=== PATIENT | male | born 1970 | race American Indian/Alaskan Native ===

== ENCOUNTER 2017-12-12 17:17 | Inpatient (IN) | payer OTHER ==
[2017-12-12] MEDS ORDERED: NACL 0.9% 1000 ML 1,000 ML IV ONE ×2 (19:13→21:20)
[2017-12-12] MEDS ORDERED: HumuLIN R IV ONE ×2 (19:15→21:19)
--- NOTE | 2017-12-12 19:16 | Emergency Department Report ---
ED Shortness of Breath HPI - General Chief Complaint: Dyspnea/Respdistress Stated Complaint: HYPERGLYCCEMIA/LIZZY Time Seen by Provider: 12/12/17 18:44 Source: EMS Mode of arrival: Stretcher Limitations: No Limitations - History of Present Illness Initial Comments: 47 yo male with a past medical history of tobacco use, asthma, and previous history of diabetes presents to the hospital with complaints of cough, intermittent fever, shortness of breath the last 3 days. Symptoms worsened today. He developed cough productive and sputum today but nonproductive prior to today. Patient denies wheezing episodes. Denies previous history of intubations. Patient states his primary care doctor discontinued his oral diabetes medication about 6 months ago because his hemoglobin A1c was normal. He is supposed to follow-up for repeat testing. No recent travel, sick contacts , history of PE/DVT, or calf or leg pain. Patient did not receive a flu shot this season. Patient has chest pain with coughing rated 8/10 in intensity. Patient received Solu-Medrol and magnesium in route and placed on nonrebreather with a sat of 92-93%. Patient admits to daily alcohol he drinks beer daily. Last drink 2-3 days ago. Patient denies a history of alcohol withdrawal tremors or seizures. - Related Data Allergies Allergy/AdvReac Type Severity Reaction Status Date / Time Zqzyntp-Tri-Ior Reductase Allergy Unknown Verified 12/12/17 20:09 Inhibitor ED Review of Systems ROS: Stated complaint: HYPERGLYCCEMIA/LIZZY Other details as noted in HPI Comment: All other systems reviewed and negative Other: Constitutional: As per HPI Eyes: No eye pain visual changes ENT: No ear pain or throat pain Neck: Denies pain Respiratory: Denies cough wheezing shortness of breath Cardiovascular: Denies chest pain, palpitations, syncope GI: Denies abdominal pain, nausea, vomiting, diarrhea, constipation, melena hematochezia : Denies dysuria, urinary frequency, or urgency Musculoskeletal: Denies back pain, joint swelling Skin: Denies rash, lesions, erythema Neurologic: Denies headache, numbness, weakness Psychiatric: Denies suicidal ideation, hallucinations Hematological/lymphatic: Denies easy bruising, lymphadenopathy ED Past Medical Hx - Past Medical History Previous Medical History?: Yes Hx Diabetes: Yes Additional medical history: asthma - Social History Smoking Status: Current Every Day Smoker Substance Use Type: Alcohol (daily) ED Physical Exam - General Limitations: No Limitations - Other Other exam information: General: No limitations Head exam: Atraumatic, normocephalic Eyes exam: Normal appearance ENT: Moist mucous membrane Neck exam: Normal inspection, full range of motion Respiratory exam: Diminished breath sounds left lung field, with mild crackles at bilateral bases. Tachypnea, mild accessory muscle use Cardiovascular: Tachycardic regular rhythm Abdomen: Soft, nondistended, and nontender, with normal bowel sounds, no rebound, or guarding Extremity: Full range of motion normal inspection no deformity, no calf tenderness or edema Back: Normal Inspection, full range of motion, no tenderness Neurologic: Alert, oriented x3, cranial nerves intact, no motor or sensory deficit Psychiatric: normal affect, normal mood Skin: Warm, dry, intact ED Course Vital Signs 12/12/17 12/12/17 12/12/17 17:35 18:00 18:14 Temperature 103 F H Pulse Rate 130 H Respiratory 30 H 33 H Rate Blood Pressure 119/75 126/74 O2 Sat by Pulse 92 92 Oximetry 12/12/17 12/12/17 12/12/17 18:15 18:30 18:45 Temperature Pulse Rate 129 H 127 H Respiratory 35 H 42 H Rate Blood Pressure 119/75 119/75 O2 Sat by Pulse 88 91 95 Oximetry 12/12/17 19:00 Temperature Pulse Rate 129 H Respiratory 55 H Rate Blood Pressure 122/70 O2 Sat by Pulse 90 Oximetry - Consultations Consultation #1: 12/12/17 21:[address] 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 Willileana consult ED Medical Decision Making - Lab Data Result diagrams: 12/12/17 19:02 12/12/17 19:02 Lab Results 12/12/17 12/12/17 12/12/17 Range/Units 19:02 19:02 19:02 WBC 6.9 (4.5-11.0) K/mm3 RBC 4.23 (3.65-5.03) M/mm3 Hgb 14.2 (11.8-15.2) gm/dl Hct 40.5 (35.5-45.6) % MCV 96 H (84-94) fl MCH 34 H (28-32) pg MCHC 35 H (32-34) % RDW 13.3 (13.2-15.2) % Plt Count 46 L (140-440) K/mm3 Crisp % (Auto) Dyer [place] Washer Add Manual Diff Complete Total Counted 100 Seg Neutrophils % Dyer [place] Washer Seg Neuts % (Manual) 77.0 H (40.0-70.0) % Band Neutrophils % 6.0 % Lymphocytes % (Manual) 13.0 L (13.4-35.0) % Reactive Lymphs % (Man) 0 % Monocytes % (Manual) 4.0 (0.0-7.3) % Eosinophils % (Manual) 0 (0.0-4.3) % Basophils % (Manual) 0 (0.0-1.8) % Metamyelocytes % 0 % Myelocytes % 0 % Promyelocytes % 0 % Blast Cells % 0 % Nucleated RBC % Not Reportable Seg Neutrophils # Man 5.3 (1.8-7.7) K/mm3 Band Neutrophils # 0.4 K/mm3 Lymphocytes # (Manual) 0.9 L (1.2-5.4) K/mm3 Abs React Lymphs (Man) 0.0 K/mm3 Monocytes # (Manual) 0.3 (0.0-0.8) K/mm3 Eosinophils # (Manual) 0.0 (0.0-0.4) K/mm3 Basophils # (Manual) 0.0 (0.0-0.1) K/mm3 Metamyelocytes # 0.0 K/mm3 Myelocytes # 0.0 K/mm3 Promyelocytes # 0.0 K/mm3 Blast Cells # 0.0 K/mm3 WBC Morphology Not Reportable Hypersegmented Neuts Not Reportable Hyposegmented Neuts Not Reportable Hypogranular Neuts Not Reportable Smudge Cells Not Reportable Toxic Granulation Not Reportable Toxic Vacuolation 2+ Dohle Bodies Not Reportable Pelger-Huet Anomaly Not Reportable Mary Rods Not Reportable Platelet Estimate Appears decreased Clumped Platelets Not Reportable Plt Clumps, EDTA Not Reportable Large Platelets Not Reportable Giant Platelets Not Reportable Platelet Satelliting Not Reportable Plt Morphology Comment Not Reportable RBC Morphology Not Reportable Dimorphic RBCs Not Reportable Polychromasia Not Reportable Hypochromasia Not Reportable Poikilocytosis 2+ Anisocytosis 1+ Microcytosis Not Reportable Macrocytosis Not Reportable Spherocytes Not Reportable Pappenheimer Bodies Not Reportable Sickle Cells Not Reportable Target Cells Not Reportable Tear Drop Cells Not Reportable Ovalocytes Not Reportable Helmet Cells Not Reportable Arceo-Ramos Bodies Not Reportable [place] Rings Not Reportable Chidi Cells Not Reportable Bite Cells Not Reportable Crenated Cell Not Reportable Elliptocytes Not Reportable Acanthocytes (Spur) Not Reportable Rouleaux Not Reportable Hemoglobin C Crystals Not Reportable Schistocytes Not Reportable Malaria parasites Not Reportable Vipul Bodies Not Reportable Hem Pathologist Commnt No PT 14.7 (12.2-14.9) Sec. INR 1.09 (0.87-1.13) VBG pH (7.320-7.420) Sodium (137-145) mmol/L Potassium (3.6-5.0) mmol/L Chloride (98-107) mmol/L Carbon Dioxide (22-30) mmol/L Anion Gap mmol/L BUN (9-20) mg/dL Creatinine (0.8-1.5) mg/dL Estimated GFR ml/min BUN/Creatinine Ratio % Glucose (75-100) mg/dL Lactic Acid 4.00 H* (0.7-2.0) mmol/L Calcium (8.4-10.2) mg/dL Total Bilirubin (0.1-1.2) mg/dL AST (5-40) units/L ALT (7-56) units/L Alkaline Phosphatase (35-129) units/L NT-Pro-B Natriuret Pep (0-450) pg/mL Total Protein (6.3-8.2) g/dL Albumin (3.9-5) g/dL Albumin/Globulin Ratio % Urine Color (Yellow) Urine Turbidity (Clear) Urine pH (5.0-7.0) Ur Specific [place] (1.003-1.030) Urine Protein (Negative) mg/dL Urine Glucose (UA) (Negative) mg/dL Urine Ketones (Negative) mg/dL Urine Blood (Negative) Urine Nitrite (Negative) Urine Bilirubin (Negative) Urine Ictotest (Negative) Urine Urobilinogen (<2.0) mg/dL Ur Leukocyte Esterase (Negative) Urine WBC (Auto) (0.0-6.0) /HPF Urine RBC (Auto) (0.0-6.0) /HPF U Epithel Cells (Auto) (0-13.0) /HPF Urine Bacteria (Auto) (Negative) /HPF Urine Mucus /HPF 12/12/17 12/12/17 12/12/17 Range/Units 19:02 19:02 19:18 WBC (4.5-11.0) K/mm3 RBC (3.65-5.03) M/mm3 Hgb (11.8-15.2) gm/dl Hct (35.5-45.6) % MCV (84-94) fl MCH (28-32) pg MCHC (32-34) % RDW (13.2-15.2) % Plt Count (140-440) K/mm3 Crisp % (Auto) Add Manual Diff Total Counted Seg Neutrophils % Seg Neuts % (Manual) (40.0-70.0) % Band Neutrophils % % Lymphocytes % (Manual) (13.4-35.0) % Reactive Lymphs % (Man) % Monocytes % (Manual) (0.0-7.3) % Eosinophils % (Manual) (0.0-4.3) % Basophils % (Manual) (0.0-1.8) % Metamyelocytes % % Myelocytes % % Promyelocytes % % Blast Cells % % Nucleated RBC % Seg Neutrophils # Man (1.8-7.7) K/mm3 Band Neutrophils # K/mm3 Lymphocytes # (Manual) (1.2-5.4) K/mm3 Abs React Lymphs (Man) K/mm3 Monocytes # (Manual) (0.0-0.8) K/mm3 Eosinophils # (Manual) (0.0-0.4) K/mm3 Basophils # (Manual) (0.0-0.1) K/mm3 Metamyelocytes # K/mm3 Myelocytes # K/mm3 Promyelocytes # K/mm3 Blast Cells # K/mm3 WBC Morphology Hypersegmented Neuts Hyposegmented Neuts Hypogranular Neuts Smudge Cells Toxic Granulation Toxic Vacuolation Dohle Bodies Pelger-Huet Anomaly Mary Rods Platelet Estimate Clumped Platelets Plt Clumps, EDTA Large Platelets Giant Platelets Platelet Satelliting Plt Morphology Comment RBC Morphology Dimorphic RBCs Polychromasia Hypochromasia Poikilocytosis Anisocytosis Microcytosis Macrocytosis Spherocytes Pappenheimer Bodies Sickle Cells Target Cells Tear Drop Cells Ovalocytes Helmet Cells Arceo-Ramos Bodies [place] Rings Chidi Cells Bite Cells Crenated Cell Elliptocytes Acanthocytes (Spur) Rouleaux Hemoglobin C Crystals Schistocytes Malaria parasites Vipul Bodies Hem Pathologist Commnt PT (12.2-14.9) Sec. INR (0.87-1.13) VBG pH 7.472 H (7.320-7.420) Sodium 124 L (137-145) mmol/L Potassium 3.8 (3.6-5.0) mmol/L Chloride 80.0 L (98-107) mmol/L Carbon Dioxide 20 L (22-30) mmol/L Anion Gap 28 mmol/L BUN 16 (9-20) mg/dL Creatinine 1.0 (0.8-1.5) mg/dL Estimated GFR > 60 ml/min BUN/Creatinine Ratio 16 % Glucose 382 H (75-100) mg/dL Lactic Acid (0.7-2.0) mmol/L Calcium 8.1 L (8.4-10.2) mg/dL Total Bilirubin 4.60 H (0.1-1.2) mg/dL AST 93 H (5-40) units/L ALT 112 H (7-56) units/L Alkaline Phosphatase 80 (35-129) units/L NT-Pro-B Natriuret Pep 409.9 (0-450) pg/mL Total Protein 6.5 (6.3-8.2) g/dL Albumin 2.5 L (3.9-5) g/dL Albumin/Globulin Ratio 0.6 % Urine Color (Yellow) Urine Turbidity (Clear) Urine pH (5.0-7.0) Ur Specific [place] (1.003-1.030) Urine Protein (Negative) mg/dL Urine Glucose (UA) (Negative) mg/dL Urine Ketones (Negative) mg/dL Urine Blood (Negative) Urine Nitrite (Negative) Urine Bilirubin (Negative) Urine Ictotest (Negative) Urine Urobilinogen (<2.0) mg/dL Ur Leukocyte Esterase (Negative) Urine WBC (Auto) (0.0-6.0) /HPF Urine RBC (Auto) (0.0-6.0) /HPF U Epithel Cells (Auto) (0-13.0) /HPF Urine Bacteria (Auto) (Negative) /HPF Urine Mucus /HPF 12/12/17 Range/Units 20:42 WBC (4.5-11.0) K/mm3 RBC (3.65-5.03) M/mm3 Hgb (11.8-15.2) gm/dl Hct (35.5-45.6) % MCV (84-94) fl MCH (28-32) pg MCHC (32-34) % RDW (13.2-15.2) % Plt Count (140-440) K/mm3 Crisp % (Auto) Add Manual Diff Total Counted Seg Neutrophils % Seg Neuts % (Manual) (40.0-70.0) % Band Neutrophils % % Lymphocytes % (Manual) (13.4-35.0) % Reactive Lymphs % (Man) % Monocytes % (Manual) (0.0-7.3) % Eosinophils % (Manual) (0.0-4.3) % Basophils % (Manual) (0.0-1.8) % Metamyelocytes % % Myelocytes % % Promyelocytes % % Blast Cells % % Nucleated RBC % Seg Neutrophils # Man (1.8-7.7) K/mm3 Band Neutrophils # K/mm3 Lymphocytes # (Manual) (1.2-5.4) K/mm3 Abs React Lymphs (Man) K/mm3 Monocytes # (Manual) (0.0-0.8) K/mm3 Eosinophils # (Manual) (0.0-0.4) K/mm3 Basophils # (Manual) (0.0-0.1) K/mm3 Metamyelocytes # K/mm3 Myelocytes # K/mm3 Promyelocytes # K/mm3 Blast Cells # K/mm3 WBC Morphology Hypersegmented Neuts Hyposegmented Neuts Hypogranular Neuts Smudge Cells Toxic Granulation Toxic Vacuolation Dohle Bodies Pelger-Huet Anomaly Mary Rods Platelet Estimate Clumped Platelets Plt Clumps, EDTA Large Platelets Giant Platelets Platelet Satelliting Plt Morphology Comment RBC Morphology Dimorphic RBCs Polychromasia Hypochromasia Poikilocytosis Anisocytosis Microcytosis Macrocytosis Spherocytes Pappenheimer Bodies Sickle Cells Target Cells Tear Drop Cells Ovalocytes Helmet Cells Arceo-Ramos Bodies [place] Rings Chidi Cells Bite Cells Crenated Cell Elliptocytes Acanthocytes (Spur) Rouleaux Hemoglobin C Crystals Schistocytes Malaria parasites Vipul Bodies Hem Pathologist Commnt PT (12.2-14.9) Sec. INR (0.87-1.13) VBG pH (7.320-7.420) Sodium (137-145) mmol/L Potassium (3.6-5.0) mmol/L Chloride (98-107) mmol/L Carbon Dioxide (22-30) mmol/L Anion Gap mmol/L BUN (9-20) mg/dL Creatinine (0.8-1.5) mg/dL Estimated GFR ml/min BUN/Creatinine Ratio % Glucose (75-100) mg/dL Lactic Acid (0.7-2.0) mmol/L Calcium (8.4-10.2) mg/dL Total Bilirubin (0.1-1.2) mg/dL AST (5-40) units/L ALT (7-56) units/L Alkaline Phosphatase (35-129) units/L NT-Pro-B Natriuret Pep (0-450) pg/mL Total Protein (6.3-8.2) g/dL Albumin (3.9-5) g/dL Albumin/Globulin Ratio % Urine Color Neeta (Yellow) Urine Turbidity Clear (Clear) Urine pH 5.0 (5.0-7.0) Ur Specific [place] 1.021 (1.003-1.030) Urine Protein 100 mg/dl (Negative) mg/dL Urine Glucose (UA) >=500 (Negative) mg/dL Urine Ketones Tr (Negative) mg/dL Urine Blood Lg (Negative) Urine Nitrite Neg (Negative) Urine Bilirubin Sm (Negative) Urine Ictotest Positive (Negative) Urine Urobilinogen 4.0 (<2.0) mg/dL Ur Leukocyte Esterase Neg (Negative) Urine WBC (Auto) 2.0 (0.0-6.0) /HPF Urine RBC (Auto) 1.0 (0.0-6.0) /HPF U Epithel Cells (Auto) < 1.0 (0-13.0) /HPF Urine Bacteria (Auto) 1+ (Negative) /HPF Urine Mucus 1+ /HPF - EKG Data -: EKG Interpreted by [facility] EKG shows normal: sinus rhythm, axis (1), QRS complexes Rate: tachycardia (127) - Radiology Data Radiology results: report reviewed Chest x-ray read by radiologist Fairly dense diffuse right-sided infiltrate and left lower lobe infiltrate remaining left lung is clear. Right hilum cannot be assessed - Medical Decision Making Pneumonia Bilateral and likely causes shortness of breath, hypoxia, and tachypnea Tylenol for fever Normal saline Levaquin and Zosyn initiated Patient requiring supplemental oxygen via nonrebreather Positive elevated lactic acid Tachycardia Likely secondary to cause above Must also consider alcohol withdrawal No signs of tremors at this time. Hyponatremia sodium correction for glucose: 131 Normal saline initiated Hyperglycemia received insulin boluses and normal saline Trace ketones in urine Venous pH without acidosis +AG which could be due to sepsis as well. - Differential Diagnosis pneumonia, bronchitis, CHF, effusion, hyperglycemia, DKA Critical Care Time: No Critical care attestation.: If time is entered above; I have spent that time in minutes in the direct care of this critically ill patient, excluding procedure time. ED Disposition Clinical Impression: Hyperglycemia, Thrombocytopenia, Hyponatremia, LFT elevation, Daily consumption of alcohol, Elevated lactic acid level Pneumonia Qualifiers: Laterality: bilateral Disposition: OP ADMIT IP TO THIS HOSP Is pt being admited?: Yes Condition: Stable Time of Disposition: 21:25 (Dr Howell/hosp)
[2017-12-12] MEDS ORDERED: LEVAQUIN 750MG/150ML 750 MG/150 ML BAG IV ONE (19:19)
[2017-12-12] MEDS ORDERED: NACL 0.9% 500 ML 500 ML IV ONE (19:20)
[2017-12-12 19:29] LABS: Hematocrit 40.5 % (35.5-45.6); Hemoglobin 14.2 gm/dl (11.8-15.2); Mean Corpuscular HGB Conc 35 % (32-34); Mean Corpuscular Hemoglobin 34 pg (28-32); Mean Corpuscular Volume 96 fl (84-94); Red Blood Count 4.23 M/mm3 (3.65-5.03); Red Cell Distribution Width 13.3 % (13.2-15.2)
[2017-12-12 19:43] LABS: INR 1.09 (0.87-1.13)
[2017-12-12 20:26] LABS: Alanine Aminotransferase 112 units/L (7-56); Albumin 2.5 g/dL (3.9-5); BUN/Creatinine Ratio 16; Blood Urea Nitrogen 16 mg/dL (9-20); Calcium 8.1 mg/dL (8.4-10.2); Hemolysis Index 50
[2017-12-12 20:56] LABS: Band Neutrophils # (Manual) 0.4 K/mm3; Basophils % (Manual) 0 % (0.0-1.8); Eosinophils % (Manual) 0 % (0.0-4.3); Total Cells Counted 100
[2017-12-12 20:58] LABS: Bacteria,Urine 1+ /HPF (Negative); Bilirubin,Urine SM (Negative); Blood,Urine LG (Negative); Color,Urine Amber (Yellow); Mucus,Urine 1+ /HPF
[2017-12-12 20:59] LABS: Platelet Estimate Appears Decreased
[2017-12-12 21:00] LABS: Anisocytosis 1+; Poikilocytosis 2+; Toxic Vacuolation 2+
[2017-12-12] MEDS ORDERED: ZOSYN/NS 4.5GM/100ML 4.5 GM/100 ML VIAL IV SCH (21:00)
[2017-12-12 21:01] LABS: Platelet Count 46 K/mm3 (140-440)
--- NOTE | 2017-12-12 21:07 | XRay Report ---
FINAL REPORT EXAM: XR CHEST 1V AP HISTORY: Fever/Sepsis TECHNIQUE: Frontal chest x-ray performed AP was performed Comparison: None FINDINGS: Heart size is normal. There is a dense fairly diffuse right-sided infiltrate without significant volume loss. There is a patchy left lower lobe infiltrate. The remaining left lung is clear. There are no definite pleural effusions. IMPRESSION: Fairly dense diffuse right-sided infiltrate and left lower lobe infiltrate. Remaining left lung is clear. Heart size is grossly within normal limits. Right hilum cannot be assessed.
[2017-12-12] MEDS ORDERED: TYLENOL PO ONE (21:12)
[2017-12-12 21:18] LABS: Ictotest,Urine Positive (Negative)
[2017-12-12] MEDS ORDERED: TYLENOL PO PRN (22:16)
[2017-12-12] MEDS ORDERED: D50W (25GM) Syringe IV PRN (22:16)
--- NOTE | 2017-12-12 22:21 | History and Physical Report ---
History of Present Illness Date of examination: 12/12/17 History of present illness: 47-year-old man with history of diabetes, asthma, emergency room with complaints of shortness of breath 3 days. He complains of cough productive of yellow phlegm, fever and chills. He has been using his cousins nebulizer treatments without any improvement in his symptoms. He's been hypoxic in the emergency room and a nonrebreather,saturation is in the 80s with movement, he will be placed on a BiPAP Review Of Systems: Constitutional: no weight loss Ears, eyes, nose, mouth and throat: no nasal congestion, no nasal discharge, no sinus pressure, blurry vision, diplopia Neck: No neck pain or rigidity. Cardiovascular: no chest pain, orthopnea, palpitations Respiratory: + shortness of breath, cough Gastrointestinal: abdominal pain, hematochezia Genitourinary : no dysuria, frequency , hematuria Musculoskeletal: no muscle ache Integumentary: no rash, no pruritis Neurological: no parathesias, focal weakness Endocrine: no cold or heat intolerance, no polyuria or polydipsia Hematologic/Lymphatic: no easy bruising, no easy bleeding, no gland swelling Allergic/Immunologic: no urticaria, no angioedema. PAST MEDICAL HISTORY: Diabetes, asthma PAST SURGICAL HISTORY: None SOCIAL HISTORY: Smoke a pack a day, drinks 6 beers a day, no drugs FAMILY HISTORY: Hypertension Medications and Allergies Allergies Allergy/AdvReac Type Severity Reaction Status Date / Time Wlnheuo-Jov-Kqm Reductase Allergy Unknown Verified 12/12/17 20:09 Inhibitor Home Medications Medication Instructions Recorded Confirmed Last Taken Type No Known Home Medications [No 12/13/17 12/13/17 Unknown History Reported Home Medications] Active Meds: Active Medications Acetaminophen (Tylenol) 650 mg PO Q4H PRN PRN Reason: Pain MILD(1-3)/Fever >100.5/HERNANDEZ Albuterol/Ipratropium (Duoneb *Not For Prn Use*) 1 ampul IH Q6HRT LEIF Dextrose (D50w (25gm) Syringe) 50 ml IV PRN PRN PRN Reason: Hypoglycemia Piperacillin Sod/Tazobactam Sod (Zosyn/Ns 4.5gm/100ml) 4.5 gm in 100 mls @ 200 mls/hr IV ONCE LEIF Last Admin: 12/12/17 21:35 Dose: 200 mls/hr Insulin Human Regular (Humulin R) 0 units SUB-Q AC LEIF; Protocol Methylprednisolone Sodium Succinate (Solu-Medrol) 60 mg IV Q6H LEIF Ondansetron HCl (Zofran) 4 mg IV Q8H PRN PRN Reason: Nausea And Vomiting Sodium Chloride (Sodium Chloride Flush Syringe 10 Ml) 10 ml IV BID LEIF Sodium Chloride (Sodium Chloride Flush Syringe 10 Ml) 10 ml IV PRN PRN PRN Reason: LINE FLUSH Exam - Physical Exam Narrative exam: Gen. appearance: Patient lying in bed, no apparent distress HEENT: Normocephalic, atraumatic, pupils equally round and reactive to light, extraocular movement intact, and no sclericterus,. No JVD or thyromegaly or nodule,neck supple, no carotid bruit ,mucous membranes moist, no exudate or erythema Heart: S1, S2, regular rate and rhythm Lungs: Wheezing, crackles , breathing comfortable Abdomen: Positive bowel sounds, nontender, nondistended, no organomegaly Extremity: No edema, cyanosis, clubbing Skin: No rash, nodules, warm, dry Neuro: Oriented 3, cranial nerves II-12 intact, speech is fluent, motor and sensory intact - Constitutional Vitals: Temp Pulse Resp BP Pulse Ox 103 F H 122 H 12 107/50 93 12/12/17 17:35 12/12/17 21:45 12/12/17 21:45 12/12/17 21:45 12/12/17 21:45 Results - Labs CBC & Chem 7: 01/04/18 06:12 01/04/18 06:12 Labs: Abnormal lab results 12/12/17 12/12/17 12/12/17 Range/Units 19:02 19:02 19:02 MCV 96 H (84-94) fl MCH 34 H (28-32) pg MCHC 35 H (32-34) % Plt Count 46 L (140-440) K/mm3 Seg Neuts % (Manual) 77.0 H (40.0-70.0) % Lymphocytes % (Manual) 13.0 L (13.4-35.0) % Lymphocytes # (Manual) 0.9 L (1.2-5.4) K/mm3 VBG pH (7.320-7.420) Sodium 124 L (137-145) mmol/L Chloride 80.0 L (98-107) mmol/L Carbon Dioxide 20 L (22-30) mmol/L Glucose 382 H (75-100) mg/dL Lactic Acid 4.00 H* (0.7-2.0) mmol/L Calcium 8.1 L (8.4-10.2) mg/dL Total Bilirubin 4.60 H (0.1-1.2) mg/dL AST 93 H (5-40) units/L ALT 112 H (7-56) units/L Albumin 2.5 L (3.9-5) g/dL 12/12/17 Range/Units 19:18 MCV (84-94) fl MCH (28-32) pg MCHC (32-34) % Plt Count (140-440) K/mm3 Seg Neuts % (Manual) (40.0-70.0) % Lymphocytes % (Manual) (13.4-35.0) % Lymphocytes # (Manual) (1.2-5.4) K/mm3 VBG pH 7.472 H (7.320-7.420) Sodium (137-145) mmol/L Chloride (98-107) mmol/L Carbon Dioxide (22-30) mmol/L Glucose (75-100) mg/dL Lactic Acid (0.7-2.0) mmol/L Calcium (8.4-10.2) mg/dL Total Bilirubin (0.1-1.2) mg/dL AST (5-40) units/L ALT (7-56) units/L Albumin (3.9-5) g/dL - Imaging and Cardiology EKG: image reviewed Chest x-ray: image reviewed Assessment and Plan Assessment Acute respiratory failure Sepsis Bilateral community-acquired pneumonia Asthma exacerbation Diabetes type 2 Thrombocytopenia Alcoholic hepatitis plan Start BiPAP,nebulizer treatments Start high-dose steroids, IV Levaquin, follow cultures Consult pulmonary Check fingersticks and initiate insulin sliding scale Start Lantus now, DVT prophylaxis Addendum patient in respiratory distress nubilizer treatment given, abg obtained intubate and tranfer to unit Vomited during and after intubation antiemetics, add zosyn, give a dose of vanco The high probability of a clinically significant sudden or life-threatening deterioration of the [cardiac, respiratory, renal] system(s) required my full and direct attention, intervention and personal management. The aggregate critical care time was [45 ] minutes. This time is in addition to the time spent performing reported procedures but including [ X] Data review and interpretation [ X] Patient assessment and monitoring of vital signs [ X ] Documentation [X] Medication orders and management
[2017-12-12] MEDS ORDERED: NORCO 5/325 ONE (22:58)
[2017-12-12] MEDS ORDERED: NORCO 5/325 PO ONE (23:01)
[2017-12-12] MEDS ORDERED: TESSALON PERLES PO ONE (23:01)
[2017-12-13] MEDS: DUONEB *Not for PRN Use IH SCH ×4 (01:11→20:30)
[2017-12-13] MEDS ORDERED: PROVENTIL IH PRN (02:47)
[2017-12-13] MEDS ORDERED: REGLAN ONE (04:15)
[2017-12-13] MEDS ORDERED: XOPENEX IH ONE (04:27)
[2017-12-13] MEDS ORDERED: ATROVENT IH ONE (04:27)
--- NOTE | 2017-12-13 04:34 | Emergency Department Report ---
HPI - General Chief Complaint: Dyspnea/Respdistress Time Seen by Provider: 12/12/17 18:44 - HPI HPI: I was asked by the hospitalist colleague Dr. Howell to intubate patient. I found patient to be in severe respiratory distress on BiPAP breathing 30 breaths per minute. I discussed the procedure with his and the patient. Both agreed to the procedure. Patient was provided oxygen with nonrebreather. [place] oxygen saturation achieved 77%. RSI performed with etomidate and succinylcholine. I used a Flavio 4-0 curved blade and 7.5 ETT, passed tube under direct visualization of vocal cords. I required 2 attempts. With ventilation bag valve mask in between the first and second attempt. Color change with CO2 detector. Chest x- ray was immediately ordered. ED Past Medical Hx - Past Medical History Previous Medical History?: Yes Hx Diabetes: Yes Additional medical history: asthma - Social History Smoking Status: Current Some Day Smoker ED Review of Systems ROS: Stated complaint: HYPERGLYCCEMIA/LIZZY Other details as noted in HPI Physical Exam - Physical Exam Vital Signs: Vital Signs 12/12/17 12/12/17 12/12/17 17:35 18:00 18:14 Temperature 103 F H Pulse Rate 130 H Respiratory 30 H 33 H Rate Blood Pressure 119/75 126/74 Blood Pressure [Left] O2 Sat by Pulse 92 92 Oximetry 12/12/17 12/12/17 12/12/17 18:15 18:30 18:45 Temperature Pulse Rate 129 H 127 H Respiratory 35 H 42 H Rate Blood Pressure 119/75 119/75 Blood Pressure [Left] O2 Sat by Pulse 88 91 95 Oximetry 12/12/17 12/12/17 12/12/17 19:00 19:15 19:30 Temperature Pulse Rate 129 H 127 H 128 H Respiratory 55 H 60 H 34 H Rate Blood Pressure 122/70 111/59 108/52 Blood Pressure [Left] O2 Sat by Pulse 90 95 85 Oximetry 12/12/17 12/12/17 12/12/17 19:45 20:01 20:15 Temperature Pulse Rate 125 H 127 H 128 H Respiratory 48 H 16 35 H Rate Blood Pressure 116/61 119/56 119/56 Blood Pressure [Left] O2 Sat by Pulse 87 91 91 Oximetry 12/12/17 12/12/17 12/12/17 20:31 20:45 21:00 Temperature Pulse Rate 126 H 124 H 122 H Respiratory 26 H 14 61 H Rate Blood Pressure 131/66 128/67 132/68 Blood Pressure [Left] O2 Sat by Pulse 89 89 95 Oximetry 12/12/17 12/12/17 12/12/17 21:15 21:30 21:45 Temperature Pulse Rate 123 H 124 H 122 H Respiratory 24 15 12 Rate Blood Pressure 129/55 113/63 107/50 Blood Pressure [Left] O2 Sat by Pulse 92 93 93 Oximetry 12/12/17 12/12/17 12/12/17 22:00 22:15 22:30 Temperature 99.8 F H Pulse Rate Respiratory 45 H 24 Rate Blood Pressure 126/46 108/58 Blood Pressure [Left] O2 Sat by Pulse 90 90 Oximetry 12/12/17 12/12/17 12/12/17 22:31 22:45 23:00 Temperature Pulse Rate Respiratory 21 20 51 H Rate Blood Pressure 115/78 115/78 106/57 Blood Pressure [Left] O2 Sat by Pulse 82 L 84 88 Oximetry 12/12/17 12/12/17 12/12/17 23:15 23:17 23:30 Temperature Pulse Rate 113 H Respiratory 39 H 49 H 40 H Rate Blood Pressure 129/80 129/80 133/84 Blood Pressure [Left] O2 Sat by Pulse 94 95 95 Oximetry 12/12/17 12/13/17 12/13/17 23:45 00:00 00:03 Temperature Pulse Rate Respiratory 41 H 43 H 38 H Rate Blood Pressure 131/77 125/77 125/77 Blood Pressure [Left] O2 Sat by Pulse 95 94 93 Oximetry 12/13/17 12/13/17 12/13/17 00:08 00:15 00:31 Temperature Pulse Rate 111 H Respiratory 24 28 H 26 H Rate Blood Pressure 129/69 125/77 Blood Pressure 125/77 [Left] O2 Sat by Pulse 98 91 90 Oximetry 12/13/17 00:40 Temperature Pulse Rate Respiratory 12 Rate Blood Pressure 125/77 Blood Pressure [Left] O2 Sat by Pulse 84 Oximetry ED Course Vital Signs 12/12/17 12/12/17 12/12/17 17:35 18:00 18:14 Temperature 103 F H Pulse Rate 130 H Respiratory 30 H 33 H Rate Blood Pressure 119/75 126/74 Blood Pressure [Left] O2 Sat by Pulse 92 92 Oximetry 12/12/17 12/12/17 12/12/17 18:15 18:30 18:45 Temperature Pulse Rate 129 H 127 H Respiratory 35 H 42 H Rate Blood Pressure 119/75 119/75 Blood Pressure [Left] O2 Sat by Pulse 88 91 95 Oximetry 12/12/17 12/12/17 12/12/17 19:00 19:15 19:30 Temperature Pulse Rate 129 H 127 H 128 H Respiratory 55 H 60 H 34 H Rate Blood Pressure 122/70 111/59 108/52 Blood Pressure [Left] O2 Sat by Pulse 90 95 85 Oximetry 12/12/17 12/12/17 12/12/17 19:45 20:01 20:15 Temperature Pulse Rate 125 H 127 H 128 H Respiratory 48 H 16 35 H Rate Blood Pressure 116/61 119/56 119/56 Blood Pressure [Left] O2 Sat by Pulse 87 91 91 Oximetry 12/12/17 12/12/17 12/12/17 20:31 20:45 21:00 Temperature Pulse Rate 126 H 124 H 122 H Respiratory 26 H 14 61 H Rate Blood Pressure 131/66 128/67 132/68 Blood Pressure [Left] O2 Sat by Pulse 89 89 95 Oximetry 12/12/17 12/12/17 12/12/17 21:15 21:30 21:45 Temperature Pulse Rate 123 H 124 H 122 H Respiratory 24 15 12 Rate Blood Pressure 129/55 113/63 107/50 Blood Pressure [Left] O2 Sat by Pulse 92 93 93 Oximetry 12/12/17 12/12/17 12/12/17 22:00 22:15 22:30 Temperature 99.8 F H Pulse Rate Respiratory 45 H 24 Rate Blood Pressure 126/46 108/58 Blood Pressure [Left] O2 Sat by Pulse 90 90 Oximetry 12/12/17 12/12/17 12/12/17 22:31 22:45 23:00 Temperature Pulse Rate Respiratory 21 20 51 H Rate Blood Pressure 115/78 115/78 106/57 Blood Pressure [Left] O2 Sat by Pulse 82 L 84 88 Oximetry 12/12/17 12/12/17 12/12/17 23:15 23:17 23:30 Temperature Pulse Rate 113 H Respiratory 39 H 49 H 40 H Rate Blood Pressure 129/80 129/80 133/84 Blood Pressure [Left] O2 Sat by Pulse 94 95 95 Oximetry 12/12/17 12/13/17 12/13/17 23:45 00:00 00:03 Temperature Pulse Rate Respiratory 41 H 43 H 38 H Rate Blood Pressure 131/77 125/77 125/77 Blood Pressure [Left] O2 Sat by Pulse 95 94 93 Oximetry 12/13/17 12/13/17 12/13/17 00:08 00:15 00:31 Temperature Pulse Rate 111 H Respiratory 24 28 H 26 H Rate Blood Pressure 129/69 125/77 Blood Pressure 125/77 [Left] O2 Sat by Pulse 98 91 90 Oximetry 12/13/17 00:40 Temperature Pulse Rate Respiratory 12 Rate Blood Pressure 125/77 Blood Pressure [Left] O2 Sat by Pulse 84 Oximetry ED Medical Decision Making - Lab Data Result diagrams: 12/12/17 19:02 12/12/17 19:02 Critical care attestation.: If time is entered above; I have spent that time in minutes in the direct care of this critically ill patient, excluding procedure time. ED Disposition Clinical Impression: Respiratory failure Disposition: [id number] OP ADMIT IP TO THIS HOSP Is pt being admited?: Yes Does the pt Need Aspirin: No Condition: Stable
[2017-12-13] MEDS ORDERED: ARTIFICIAL TEARS OPHTH OINT OU PRN (04:35)
[2017-12-13] MEDS: MIDAZOLAM 100 MG in NACL 0.9% 80 ML IV SCH ×2 (04:45→18:58)
--- NOTE | 2017-12-13 04:55 | XRay Report ---
FINAL REPORT EXAM: XR CHEST 1V AP HISTORY: Post ETT placement TECHNIQUE: A portable supine view the chest was obtained and compared to the study of 12/12/2017. FINDINGS: Since the previous study the patient has been intubated. The tip of the ET tube is 1.5 cm above the valentín. There are diffuse infiltrates throughout the right lung which have worsened since previous study. There now progressive infiltrates involving the lower 2/3 of the left lung which have also worsened. Pleural fluid is not seen. The heart size is normal. The bones and soft tissues otherwise are unchanged. IMPRESSION: Satisfactory intubation. Bilateral worsening of airspace disease in both lungs since the previous study. Whether the findings on the basis of pneumonia, pulmonary hemorrhage or edema is uncertain.
[2017-12-13] MEDS: fentaNYL DRIP Premix 2,000 MCG/100 ML BAG IV SCH ×5 (04:56→22:18)
[2017-12-13] MEDS ORDERED: ZOSYN/NS 3.375GM/50ML 3.375 GM/50 ML BAG IV SCH (05:00)
[2017-12-13] MEDS ORDERED: VANCOMYCIN/NS 1 GM/250 ML 1 GM/250 ML BAG IV SCH (05:00)
[2017-12-13] MEDS ORDERED: VANCOMYCIN/0.45 NS 1 GM/250 ML 1 GM/250 ML BAG IV ONE (05:00)
[2017-12-13 06:10] LABS: Hematocrit 41.5 % (35.5-45.6); Hemoglobin 14.4 gm/dl (11.8-15.2); Mean Corpuscular HGB Conc 35 % (32-34); Mean Corpuscular Hemoglobin 34 pg (28-32); Mean Corpuscular Volume 97 fl (84-94); Red Blood Count 4.27 M/mm3 (3.65-5.03); Red Cell Distribution Width 13.6 % (13.2-15.2)
[2017-12-13] MEDS: HumuLIN R SUB-Q SCH ×3 (06:10→11:57)
[2017-12-13 06:18] LABS: Platelet Count 41 K/mm3 (140-440)
--- NOTE | 2017-12-13 07:25 | XRay Report ---
FINAL REPORT EXAM: XR ABDOMEN 1V AP HISTORY: [place] SUMP PLACEMENT, NGT TECHNIQUE: Two portable supine views of the chest were obtained and compared to the earlier study of 12/13/2017. FINDINGS: There has been placement of an NG tube with the tip in the proximal stomach. The tube needs to be advanced further into the stomach. The ET tube is in good position above the valentín. The heart is [id number] enlarged. The lungs reveal diffuse airspace disease bilaterally. Underlying effusions cannot be excluded. IMPRESSION: The tip of the NG tube is in the proximal stomach. It needs to be advanced further into the stomach. Extensive bilateral airspace disease in the chest.
[2017-12-13 07:37] LABS: BUN/Creatinine Ratio 16; Blood Urea Nitrogen 16 mg/dL (9-20); Calcium 8.2 mg/dL (8.4-10.2); Hemolysis Index 17
[2017-12-13] MEDS: LEVAQUIN 750MG/150ML 750 MG/150 ML BAG IV SCH (09:31)
[2017-12-13] MEDS: SODIUM CHLORIDE FLUSH SYRINGE 10 ML IV SCH ×2 (09:32→22:19)
[2017-12-13 11:06] LABS: Band Neutrophils # (Manual) 1.1 K/mm3; Basophils % (Manual) 0 % (0.0-1.8); Eosinophils % (Manual) 0 % (0.0-4.3); Myelocytes # (Manual) 0.2 K/mm3; Platelet Estimate Appears Decreased; Promyelocytes # (Manual) 0.2 K/mm3; Total Cells Counted 100
[2017-12-13 11:07] LABS: Anisocytosis 1+; Ovalocytes Few; Poikilocytosis 1+; Target Cells Few; Tear Drop Cells Few
--- NOTE | 2017-12-13 11:43 | XRay Report ---
AP ABDOMEN: HISTORY: GI tube placement. The abdominal gas pattern is unremarkable. No masses or organomegaly is identified and there is no gross evidence of free air or fluid. No significant soft tissue calcifications are noted. A nasogastric tube has been inserted which terminates in the antrum of the stomach. IMPRESSION: Unremarkable abdomen.
--- NOTE | 2017-12-13 11:53 | Consultation ---
History of Present Illness Consult date: 12/13/17 Reason for consult: pneumonia, other (ARF MV,Asthma) History of present illness: Called to evaluate case of a 47-year-old male, admitted to the ICU with respiratory failure. Currently intubated and under mechanical ventilation support, sedated. History of pain from chart review. Per notes, "male with a past medical history of tobacco use, asthma, and previous history of diabetes presents to the hospital with complaints of cough, intermittent fever, shortness of breath the last 3 days. Symptoms worsened today. He developed cough productive and sputum today but nonproductive prior to today. Patient denies wheezing episodes. Denies previous history of intubations. Patient states his primary care doctor discontinued his oral diabetes medication about 6 months ago because his hemoglobin A1c was normal. He is supposed to follow- up for repeat testing. No recent travel, sick contacts, history of PE/DVT, or calf or leg pain. Patient did not receive a flu shot this season. Patient has chest pain with coughing rated 8/10 in intensity. Patient received Solu-Medrol and magnesium in route and placed on nonrebreather with a sat of 92-93%. Patient admits to daily alcohol he drinks beer daily. Last drink 2-3 days ago. Patient denies a history of alcohol withdrawal tremors or seizures". Our group is being called after ICU admission for critical care respiratory management. He had been initiated on APRV settings due to prior problems with oxygen desaturation. Saturation of 87% at 100% oxygen at the bedside. Preintubation x-ray showed a diffuse airspace infiltrate involving most of the right lower part of the left lower lobe. This is noted to be worse after intubation, see report . After intubation, the patient had to be placed in nostril gastric suction, due to abdominal distention. Medications and Allergies Allergies Allergy/AdvReac Type Severity Reaction Status Date / Time Awxxoqy-Esr-Pox Reductase Allergy Unknown Verified 12/12/17 20:09 Inhibitor Home Medications Medication Instructions Recorded Confirmed Last Taken Type No Known Home Medications [No 12/13/17 12/13/17 Unknown History Reported Home Medications] Active Meds: Active Medications Acetaminophen (Tylenol) 650 mg PO Q4H PRN PRN Reason: Pain MILD(1-3)/Fever >100.5/HERNANDEZ Albuterol (Proventil) 2.5 mg IH Q4HRT PRN PRN Reason: Shortness Of Breath Last Admin: 12/13/17 03:01 Dose: 2.5 mg Albuterol/Ipratropium (Duoneb *Not For Prn Use*) 1 ampul IH Q6HRT LEIF Last Admin: 12/13/17 01:11 Dose: 1 ampul Dextrose (D50w (25gm) Syringe) 50 ml IV PRN PRN PRN Reason: Hypoglycemia Hydrophilic Ointment (Vaseline Lip Therapy) 1 applic TP Q2HR PRN PRN Reason: Dry Lips Levofloxacin/Dextrose (Levaquin 750mg/150ml) 750 mg in 150 mls @ 100 mls/hr IV Q24HR LEIF; Protocol Last Admin: 12/13/17 09:31 Dose: 100 mls/hr Piperacillin Sod/Tazobactam Sod (Zosyn/Ns 3.375gm/50ml) 3.375 gm in 50 mls @ 100 mls/hr IV Q8H LEIF; Protocol Last Admin: 12/13/17 04:55 Dose: 100 mls/hr Fentanyl Citrate (Fentanyl Drip Premix) 2,000 mcg in 100 mls @ 5.058 mls/hr IV TITR LEIF; Protocol Last Admin: 12/13/17 09:32 Dose: 4 mcg/kg/hr, 20.23 mls/hr Midazolam HCl 100 mg/ Sodium (Chloride) 100 mls @ 2 mls/hr IV TITR LEIF; Protocol Last Titration: 12/13/17 08:21 Dose: 4 mg/hr, 4 mls/hr Insulin Glargine (Lantus) 6 units SUB-Q QHS LEIF Insulin Human Regular (Humulin R) 0 units SUB-Q AC LEIF; Protocol Last Admin: 12/13/17 08:21 Dose: Not Given Methylprednisolone Sodium Succinate (Solu-Medrol) 125 mg IV Q6HR LEIF Last Admin: 12/13/17 11:10 Dose: 125 mg Multi-Ingred Cream/Lotion/Oil/Oint (Artificial Tears Ophth Oint) 1 applic OU Q4HR PRN PRN Reason: Dry Eye(s) Ondansetron HCl (Zofran) 4 mg IV Q8H PRN PRN Reason: Nausea And Vomiting Sodium Chloride (Sodium Chloride Flush Syringe 10 Ml) 10 ml IV BID [facility] Last Admin: 12/13/17 09:32 Dose: 10 ml Sodium Chloride (Sodium Chloride Flush Syringe 10 Ml) 10 ml IV PRN PRN PRN Reason: LINE FLUSH Review of Systems ROS unobtainable: due to mental status Physical Examination Vital signs: Vital Signs Temp Pulse Resp BP Pulse Ox 103 F H 130 H 30 H 119/75 92 12/12/17 17:35 12/12/17 17:35 12/12/17 17:35 12/12/17 17:35 12/12/17 17:35 General appearance: no acute distress, asleep Eyes: non-icteric ENT: oropharynx moist, other (ETT at 24. NGT in position to suction) Neck: no JVD Ascultation: Right: rales, Bilateral: diminished breath sounds Cardiovascular: regular rate and rhythm, other (tachycardic) Gastrointestinal: hypoactive bowel sounds, other (distended and tympanic) Integumentary: normal Extremities: no cyanosis, no ischemia or petechiae unable to assess (R ASS -2) Results - Laboratory Findings CBC and BMP: 01/02/18 04:10 01/02/18 04:10 PT/INR, D-dimer PT 14.7 Sec. (12.2-14.9) 12/12/17 19:02 INR 1.09 (0.87-1.13) 12/12/17 19:02 Abnormal lab findings: Abnormal Labs 12/12/17 12/12/17 12/12/17 19:02 19:02 19:02 MCV 96 H MCH 34 H MCHC 35 H Plt Count 46 L Seg Neuts % (Manual) 77.0 H Lymphocytes % (Manual) 13.0 L Monocytes % (Manual) Lymphocytes # (Manual) 0.9 L VBG pH Sodium 124 L Chloride 80.0 L Carbon Dioxide 20 L Glucose 382 H Lactic Acid 4.00 H* Calcium 8.1 L Total Bilirubin 4.60 H AST 93 H ALT 112 H Albumin 2.5 L 12/12/17 12/12/17 12/13/17 19:18 21:41 00:45 MCV MCH MCHC Plt Count Seg Neuts % (Manual) Lymphocytes % (Manual) Monocytes % (Manual) Lymphocytes # (Manual) VBG pH 7.472 H Sodium Chloride Carbon Dioxide Glucose Lactic Acid 4.20 H* 2.70 H* Calcium Total Bilirubin AST ALT Albumin 03/16/18 03/16/18 03/16/18 01:29 02:19 05:58 MCV 97 H MCH 34 H MCHC 35 H Plt Count 41 L Seg Neuts % (Manual) Lymphocytes % (Manual) 8.0 L Monocytes % (Manual) 8.0 H Lymphocytes # (Manual) 0.6 L VBG pH Sodium Chloride Carbon Dioxide Glucose Lactic Acid 3.30 H* 2.60 H* Calcium Total Bilirubin AST ALT Albumin 12/13/17 12/13/17 05:58 05:58 MCV MCH MCHC Plt Count Seg Neuts % (Manual) Lymphocytes % (Manual) Monocytes % (Manual) Lymphocytes # (Manual) VBG pH Sodium 132 L D Chloride 90.0 L Carbon Dioxide 20 L Glucose 346 H Lactic Acid 4.50 H* Calcium 8.2 L Total Bilirubin AST ALT Albumin - Diagnostic Findings Chest x-ray: report reviewed, image reviewed Assessment and Plan Acute hypoxemic respiratory failure Pneumonia. Clinical picture suggestive of either aspiration pneumonia, CAP cannot be fully excluded at this point ARDS Severe sepsis Mixed lactic, respiratory anion gap acidosis Thrombocytopenia. Sepsis related versus history of alcohol use Diabetes mellitus Abdominal distention. Cause unknown Obesity Recommendations f/u hospital ventilator bundle, Mechanical ventilation support, adjust FiO2 with goal of maintaining oximetry at or above 92% Titrate PEEP up to maintain oximetry > 90% initially Set tidal Volume set initially at 8 cm , then 6 cc/kg PBW for MARY ANN protection Keep PIP < 30 Sedation as needed for patient comfort, adjust to RASS -1 to - 3 May need to paralyse pt next 24 hr x ARDS care Maintain extubation precautions Daily morning sedation vacation and initiate SBT if deemed appropriate DVT prophylaxis PPI prophylaxis SC B/C q 15 min x 2 U Legionella, S.pneumonia ag Mycoplasma titers Ceftriazone 1-2 g qd IV/Azithromycin 500 mg qd IV or Levaquin 750 mg qd if no allergies or contraindications Review antibiotic treatment once cultures available and de-escalate if appropriate 0 blood sugar monitoring. Currently sedated but, will need to monitor for CIWA protocol in case of alcohol withdrawal signs/symptoms do appear. No family available for case discussion. Critically ill the the moment. Reviewed with staff and RT.
[2017-12-13] MEDS: ZOSYN/NS 3.375GM/50ML 3.375 GM/50 ML BAG IV SCH ×2 (12:00→17:13)
[2017-12-13 14:31] LABS: Lipase 9 units/L (13-60)
--- NOTE | 2017-12-13 14:31 | Progress Note ---
Assessment and Plan Assessment and plan: Patient is a 47 yo man with a history of tobacco dependency, alcohol abuse, dm type 2, hypertension and asthma who presented to [facility] ED with SOB and found to be severely hypoxic, failed bipap and was intubated. There is report of n/v during and after intubation. I don't know if the initial cxr was before or after bipap. -Acute hypoxic respiratory failure suspected due to aspiration pneumonia: on iv zosyn/levaquin/vancomycin -suspected ARDS: Pulmonology is following -Sepsis Aspiration pneumonia: Treated with IV antibiotics, IV fluids -Alcohol abuse: sedated, add iv thiamine -Hypotensive: add ivfs History Interval history: Patient was seen and examined. Follow-up on current diagnosis of respiratory failure, patient is currently intubated. Imaging, nursing note, chart, labs and old chart reviewed. Discussed with nursing, respiratory therapy and Dr. Marrero at bedside. Hospitalist Physical - Physical exam Narrative exam: GEN: Ill-appearing HEENT: NCAT, pupils react, ET tube, NG tube in place NECK: supple, CVS/HEART:regular tachy NORMAL S1S2, pulses present bilaterally CHEST/LUNGS: Symmetrical chest expansion, good air entry bilaterally GI/Abdomen: soft, distended, good bowel sounds, no guarding or rebound /Bladder: condom cath in place EXT/Skin: Dependent edema MSK: sedated Neuro: sedated Psych: sedated - Constitutional Vitals: Temp Pulse Resp BP Pulse Ox 99.4 F 76 13 105/63 82 L 12/13/17 12:00 12/13/17 12:39 12/13/17 10:51 12/13/17 12:39 12/13/17 12:39 Results - Labs CBC & Chem 7: 12/13/17 05:58 12/13/17 05:58 Labs: Laboratory Last Values WBC 8.1 K/mm3 (4.5-11.0) 12/13/17 05:58 RBC 4.27 M/mm3 (3.65-5.03) 12/13/17 05:58 Hgb 14.4 gm/dl (11.8-15.2) 12/13/17 05:58 Hct 41.5 % (35.5-45.6) 12/13/17 05:58 MCV 97 fl (84-94) H 12/13/17 05:58 MCH 34 pg (28-32) H 12/13/17 05:58 MCHC 35 % (32-34) H 12/13/17 05:58 RDW 13.6 % (13.2-15.2) 12/13/17 05:58 Plt Count 41 K/mm3 (140-440) L 12/13/17 05:58 Branch % (Auto) Narcotics Agent 12/12/17 19:02 Add Manual Diff Complete 12/13/17 05:58 Total Counted 100 12/13/17 05:58 Seg Neutrophils % Narcotics Agent 12/12/17 19:02 Seg Neuts % (Manual) 62.0 % (40.0-70.0) 12/13/17 05:58 Band Neutrophils % 14.0 % 12/13/17 05:58 Lymphocytes % (Manual) 8.0 % (13.4-35.0) L 12/13/17 05:58 Reactive Lymphs % (Man) 0 % 12/13/17 05:58 Monocytes % (Manual) 8.0 % (0.0-7.3) H 12/13/17 05:58 Eosinophils % (Manual) 0 % (0.0-4.3) 12/13/17 05:58 Basophils % (Manual) 0 % (0.0-1.8) 12/13/17 05:58 Metamyelocytes % 3.0 % 12/13/17 05:58 Myelocytes % 3.0 % 12/13/17 05:58 Promyelocytes % 2.0 % 12/13/17 05:58 Blast Cells % 0 % 12/13/17 05:58 Nucleated RBC % Not Reportable 12/13/17 05:58 Seg Neutrophils # Man 5.0 K/mm3 (1.8-7.7) 12/13/17 05:58 Band Neutrophils # 1.1 K/mm3 12/13/17 05:58 Lymphocytes # (Manual) 0.6 K/mm3 (1.2-5.4) L 12/13/17 05:58 Abs React Lymphs (Man) 0.0 K/mm3 12/13/17 05:58 Monocytes # (Manual) 0.6 K/mm3 (0.0-0.8) 12/13/17 05:58 Eosinophils # (Manual) 0.0 K/mm3 (0.0-0.4) 12/13/17 05:58 Basophils # (Manual) 0.0 K/mm3 (0.0-0.1) 12/13/17 05:58 Metamyelocytes # 0.2 K/mm3 12/13/17 05:58 Myelocytes # 0.2 K/mm3 12/13/17 05:58 Promyelocytes # 0.2 K/mm3 12/13/17 05:58 Blast Cells # 0.0 K/mm3 12/13/17 05:58 WBC Morphology Not Reportable 12/13/17 05:58 Hypersegmented Neuts Not Reportable 12/13/17 05:58 Hyposegmented Neuts Not Reportable 12/13/17 05:58 Hypogranular Neuts Not Reportable 12/13/17 05:58 Smudge Cells Not Reportable 12/13/17 05:58 Toxic Granulation Not Reportable 12/13/17 05:58 Toxic Vacuolation Not Reportable 12/13/17 05:58 Dohle Bodies Not Reportable 12/13/17 05:58 Pelger-Huet Anomaly Not Reportable 12/13/17 05:58 Mary Rods Not Reportable 12/13/17 05:58 Platelet Estimate Appears decreased 12/13/17 05:58 Clumped Platelets Not Reportable 12/13/17 05:58 Plt Clumps, EDTA Not Reportable 12/13/17 05:58 Large Platelets Not Reportable 12/13/17 05:58 Giant Platelets Not Reportable 12/13/17 05:58 Platelet Satelliting Not Reportable 12/13/17 05:58 Plt Morphology Comment Not Reportable 12/13/17 05:58 RBC Morphology Not Reportable 12/13/17 05:58 Dimorphic RBCs Not Reportable 12/13/17 05:58 Polychromasia Not Reportable 12/13/17 05:58 Hypochromasia Not Reportable 12/13/17 05:58 Poikilocytosis 1+ 12/13/17 05:58 Anisocytosis 1+ 12/13/17 05:58 Microcytosis Not Reportable 12/13/17 05:58 Macrocytosis Not Reportable 12/13/17 05:58 Spherocytes Not Reportable 12/13/17 05:58 Pappenheimer Bodies Not Reportable 12/13/17 05:58 Sickle Cells Not Reportable 12/13/17 05:58 Target Cells Few 12/13/17 05:58 Tear Drop Cells Few 12/13/17 05:58 Ovalocytes Few 12/13/17 05:58 Helmet Cells Not Reportable 12/13/17 05:58 Arceo-[place] Bodies Not Reportable 12/13/17 05:58 Brenham Rings Not Reportable 12/13/17 05:58 Chidi Cells Not Reportable 12/13/17 05:58 Bite Cells Not Reportable 12/13/17 05:58 Crenated Cell Not Reportable 12/13/17 05:58 Elliptocytes Not Reportable 12/13/17 05:58 Acanthocytes (Spur) Not Reportable 12/13/17 05:58 Rouleaux Not Reportable 12/13/17 05:58 Hemoglobin C Crystals Not Reportable 12/13/17 05:58 Schistocytes Not Reportable 12/13/17 05:58 Malaria parasites Not Reportable 12/13/17 05:58 Vipul Bodies Not Reportable 12/13/17 05:58 Hem Pathologist Commnt No 12/13/17 05:58 PT 14.7 Sec. (12.2-14.9) 12/12/17 19:02 INR 1.09 (0.87-1.13) 12/12/17 19:02 POC ABG pH 7.298 (7.35-7.45) L 12/13/17 09:42 POC ABG pCO2 51.3 (35-45) H 12/13/17 09:42 POC ABG pO2 43 (80-105) L 12/13/17 09:42 POC ABG HCO3 25.1 12/13/17 09:42 POC ABG Total CO2 27 12/13/17 09:42 POC ABG O2 Sat 73 12/13/17 09:42 POC ABG Base Excess -1 12/13/17 09:42 VBG pH 7.472 (7.320-7.420) H 12/12/17 19:18 FiO2 100 % 12/13/17 06:27 Sodium 132 mmol/L (137-145) L D 12/13/17 05:58 Potassium 4.2 mmol/L (3.6-5.0) 12/13/17 05:58 Chloride 90.0 mmol/L (98-107) L 12/13/17 05:58 Carbon Dioxide 20 mmol/L (22-30) L 12/13/17 05:58 Anion Gap 26 mmol/L 12/13/17 05:58 BUN 16 mg/dL (9-20) 12/13/17 05:58 Creatinine 1.0 mg/dL (0.8-1.5) 12/13/17 05:58 Estimated GFR > 60 ml/min 12/13/17 05:58 BUN/Creatinine Ratio 16 % 12/13/17 05:58 Glucose 346 mg/dL (75-100) H 12/13/17 05:58 POC Glucose 376 (70-105) H 12/13/17 11:47 Lactic Acid 4.50 mmol/L (0.7-2.0) H* 12/13/17 05:58 Calcium 8.2 mg/dL (8.4-10.2) L 12/13/17 05:58 Total Bilirubin 4.60 mg/dL (0.1-1.2) H 12/12/17 19:02 AST 93 units/L (5-40) H 12/12/17 19:02 ALT 112 units/L (7-56) H 12/12/17 19:02 Alkaline Phosphatase 80 units/L (35-129) 12/12/17 19:02 NT-Pro-B Natriuret Pep 409.9 pg/mL (0-450) 12/12/17 19:02 Total Protein 6.5 g/dL (6.3-8.2) 12/12/17 19:02 Albumin 2.5 g/dL (3.9-5) L 12/12/17 19:02 Albumin/Globulin Ratio 0.6 % 12/12/17 19:02 Urine Color Neeta (Yellow) 12/12/17 20:42 Urine Turbidity Clear (Clear) 12/12/17 20:42 Urine pH 5.0 (5.0-7.0) 12/12/17 20:42 Ur Specific [place] 1.021 (1.003-1.030) 12/12/17 20:42 Urine Protein 100 mg/dl mg/dL (Negative) 12/12/17 20:42 Urine Glucose (UA) >=500 mg/dL (Negative) 12/12/17 20:42 Urine Ketones Tr mg/dL (Negative) 12/12/17 20:42 Urine Blood Lg (Negative) 12/12/17 20:42 Urine Nitrite Neg (Negative) 12/12/17 20:42 Urine Bilirubin Sm (Negative) 12/12/17 20:42 Urine Ictotest Positive (Negative) 12/12/17 20:42 Urine Urobilinogen 4.0 mg/dL (<2.0) 12/12/17 20:42 Ur Leukocyte Esterase Neg (Negative) 12/12/17 20:42 Urine WBC (Auto) 2.0 /HPF (0.0-6.0) 12/12/17 20:42 Urine RBC (Auto) 1.0 /HPF (0.0-6.0) 12/12/17 20:42 U Epithel Cells (Auto) < 1.0 /HPF (0-13.0) 12/12/17 20:42 Urine Bacteria (Auto) 1+ /HPF (Negative) 12/12/17 20:42 Urine Mucus 1+ /HPF 12/12/17 20:42 Influenza A (Rapid) Negative (Negative) 12/12/17 22:00 Influenza B (Rapid) Negative (Negative) 12/12/17 22:00
[2017-12-13] MEDS ORDERED: NACL 0.9% 500 ML 500 ML IV ONE (14:32)
[2017-12-13] MEDS ORDERED: D50W (25GM) Syringe IV PRN (14:33)
[2017-12-13] MEDS ORDERED: VANCOMYCIN PHARMACY TO DOSE IV SCH (15:00)
[2017-12-13] MEDS: VITAMIN B-1 100 MG in NACL 0.9% 50 ML IV SCH (16:35)
[2017-12-13] MEDS ORDERED: VANCOMYCIN 2,000 MG in NACL 0.9% 500 ML 500 ML IV ONE (16:45)
[2017-12-13] MEDS: HumaLOG SUB-Q SCH ×3 (18:03→23:16)
[2017-12-13] MEDS ORDERED: LANTUS SUB-Q SCH (22:00)
[2017-12-14] MEDS: ZOSYN/NS 3.375GM/50ML 3.375 GM/50 ML BAG IV SCH ×5 (00:15→23:53)
[2017-12-14] MEDS: HumaLOG SUB-Q SCH ×6 (02:29→22:35)
[2017-12-14] MEDS: NACL 0.9% 1000 ML 1,000 ML IV SCH ×3 (02:30→22:40)
[2017-12-14] MEDS: fentaNYL DRIP Premix 2,000 MCG/100 ML BAG IV SCH ×3 (02:49→22:40)
[2017-12-14] MEDS: DUONEB *Not for PRN Use IH SCH ×4 (02:57→20:13)
--- NOTE | 2017-12-14 03:00 | XRay Report ---
FINAL REPORT EXAM: XR CHEST 1V AP HISTORY: follow up respiratory failure TECHNIQUE: A portable view of the chest was obtained and compared to the study of 12/13/2017. FINDINGS: The lungs reveal diffuse airspace disease which is worsened slightly since the previous study. The heart is mildly enlarged. The ET tube and NG tube appear in good position. There EKG leads overlying the chest wall. The bones and soft tissues are unchanged. IMPRESSION: Worsening bilateral airspace disease as described. As to whether this is on the basis of pulmonary edema, pneumonia, or pulmonary hemorrhage is uncertain. Satisfactory position of the ET tube and NG tube.
[2017-12-14] MEDS: VANCOMYCIN 1,500 MG in NACL 0.9% 500 ML 500 ML IV SCH ×2 (06:29→17:26)
[2017-12-14] MEDS: LEVAQUIN 750MG/150ML 750 MG/150 ML BAG IV SCH (10:37)
[2017-12-14] MEDS: SODIUM CHLORIDE FLUSH SYRINGE 10 ML IV SCH ×2 (10:40→21:24)
[2017-12-14] MEDS: VITAMIN B-1 100 MG in NACL 0.9% 50 ML IV SCH (10:43)
--- NOTE | 2017-12-14 11:47 | Progress Note ---
Assessment and Plan Assessment and plan: Patient is a 47 yo man with a history of tobacco dependency, alcohol abuse, dm type 2, hypertension and asthma who presented to [facility] ED with SOB and found to be severely hypoxic, failed bipap and was intubated. There is report of n/v during and after intubation. I don't know if the initial cxr was before or after bipap. -Acute hypoxic respiratory failure suspected due to aspiration pneumonia: on iv zosyn/levaquin/vancomycin -suspected ARDS: Pulmonology is following -Sepsis Aspiration pneumonia: Treated with IV antibiotics, IV fluids -Alcohol abuse: sedated, add iv thiamine -Hypotensive: added ivfs -Thrombocytopenia, severe most likely due to sepsis: hold heparin -DVT prophylaxis: scd only, plt count only 41. Trying to wean 100% fiO2 History Interval history: Patient was seen and examined. Follow-up on current diagnosis of respiratory failure, patient is currently intubated. Imaging, nursing note, chart, labs and old chart reviewed. Discussed with nursing. at bedside Hospitalist Physical - Physical exam Narrative exam: GEN: Ill-appearing HEENT: NCAT, pupils react, ET tube, NG tube in place NECK: supple, CVS/HEART:regular tachy NORMAL S1S2, pulses present bilaterally CHEST/LUNGS: Symmetrical chest expansion, good air entry bilaterally GI/Abdomen: soft, distended, good bowel sounds, no guarding or rebound /Bladder: condom cath in place EXT/Skin: Dependent edema MSK: sedated Neuro: sedated Psych: sedated - Constitutional Vitals: Temp Pulse Resp BP Pulse Ox 99.6 F 103 H 12 113/61 92 12/14/17 08:00 12/14/17 11:00 12/14/17 11:00 12/14/17 11:00 12/14/17 11:00 Results - Labs CBC & Chem 7: 12/13/17 05:58 12/13/17 05:58 Labs: Laboratory Last Values WBC 8.1 K/mm3 (4.5-11.0) 12/13/17 05:58 RBC 4.27 M/mm3 (3.65-5.03) 12/13/17 05:58 Hgb 14.4 gm/dl (11.8-15.2) 12/13/17 05:58 Hct 41.5 % (35.5-45.6) 12/13/17 05:58 MCV 97 fl (84-94) H 12/13/17 05:58 MCH 34 pg (28-32) H 12/13/17 05:58 MCHC 35 % (32-34) H 12/13/17 05:58 RDW 13.6 % (13.2-15.2) 12/13/17 05:58 Plt Count 41 K/mm3 (140-440) L 12/13/17 05:58 [place] % (Auto) Emergency Vehicle Dispatcher 12/12/17 19:02 Add Manual Diff Complete 12/13/17 05:58 Total Counted 100 12/13/17 05:58 Seg Neutrophils % Emergency Vehicle Dispatcher 12/12/17 19:02 Seg Neuts % (Manual) 62.0 % (40.0-70.0) 12/13/17 05:58 Band Neutrophils % 14.0 % 12/13/17 05:58 Lymphocytes % (Manual) 8.0 % (13.4-35.0) L 12/13/17 05:58 Reactive Lymphs % (Man) 0 % 12/13/17 05:58 Monocytes % (Manual) 8.0 % (0.0-7.3) H 12/13/17 05:58 Eosinophils % (Manual) 0 % (0.0-4.3) 12/13/17 05:58 Basophils % (Manual) 0 % (0.0-1.8) 12/13/17 05:58 Metamyelocytes % 3.0 % 12/13/17 05:58 Myelocytes % 3.0 % 12/13/17 05:58 Promyelocytes % 2.0 % 12/13/17 05:58 Blast Cells % 0 % 12/13/17 05:58 Nucleated RBC % Not Reportable 12/13/17 05:58 Seg Neutrophils # Man 5.0 K/mm3 (1.8-7.7) 12/13/17 05:58 Band Neutrophils # 1.1 K/mm3 12/13/17 05:58 Lymphocytes # (Manual) 0.6 K/mm3 (1.2-5.4) L 12/13/17 05:58 Abs React Lymphs (Man) 0.0 K/mm3 12/13/17 05:58 Monocytes # (Manual) 0.6 K/mm3 (0.0-0.8) 12/13/17 05:58 Eosinophils # (Manual) 0.0 K/mm3 (0.0-0.4) 12/13/17 05:58 Basophils # (Manual) 0.0 K/mm3 (0.0-0.1) 12/13/17 05:58 Metamyelocytes # 0.2 K/mm3 12/13/17 05:58 Myelocytes # 0.2 K/mm3 12/13/17 05:58 Promyelocytes # 0.2 K/mm3 12/13/17 05:58 Blast Cells # 0.0 K/mm3 12/13/17 05:58 WBC Morphology Not Reportable 12/13/17 05:58 Hypersegmented Neuts Not Reportable 12/13/17 05:58 Hyposegmented Neuts Not Reportable 12/13/17 05:58 Hypogranular Neuts Not Reportable 12/13/17 05:58 Smudge Cells Not Reportable 12/13/17 05:58 Toxic Granulation Not Reportable 12/13/17 05:58 Toxic Vacuolation Not Reportable 12/13/17 05:58 Dohle Bodies Not Reportable 12/13/17 05:58 Pelger-Huet Anomaly Not Reportable 12/13/17 05:58 Mary Rods Not Reportable 12/13/17 05:58 Platelet Estimate Appears decreased 12/13/17 05:58 Clumped Platelets Not Reportable 12/13/17 05:58 Plt Clumps, EDTA Not Reportable 12/13/17 05:58 Large Platelets Not Reportable 12/13/17 05:58 Giant Platelets Not Reportable 12/13/17 05:58 Platelet Satelliting Not Reportable 12/13/17 05:58 Plt Morphology Comment Not Reportable 12/13/17 05:58 RBC Morphology Not Reportable 12/13/17 05:58 Dimorphic RBCs Not Reportable 12/13/17 05:58 Polychromasia Not Reportable 12/13/17 05:58 Hypochromasia Not Reportable 12/13/17 05:58 Poikilocytosis 1+ 12/13/17 05:58 Anisocytosis 1+ 12/13/17 05:58 Microcytosis Not Reportable 12/13/17 05:58 Macrocytosis Not Reportable 12/13/17 05:58 Spherocytes Not Reportable 12/13/17 05:58 Pappenheimer Bodies Not Reportable 12/13/17 05:58 Sickle Cells Not Reportable 12/13/17 05:58 Target Cells Few 12/13/17 05:58 Tear Drop Cells Few 12/13/17 05:58 Ovalocytes Few 12/13/17 05:58 Helmet Cells Not Reportable 12/13/17 05:58 Arceo-[place] Bodies Not Reportable 12/13/17 05:58 [place] Rings Not Reportable 12/13/17 05:58 Chidi Cells Not Reportable 12/13/17 05:58 Bite Cells Not Reportable 12/13/17 05:58 Crenated Cell Not Reportable 12/13/17 05:58 Elliptocytes Not Reportable 12/13/17 05:58 Acanthocytes (Spur) Not Reportable 12/13/17 05:58 Rouleaux Not Reportable 12/13/17 05:58 Hemoglobin C Crystals Not Reportable 12/13/17 05:58 Schistocytes Not Reportable 12/13/17 05:58 Malaria parasites Not Reportable 12/13/17 05:58 Vipul Bodies Not Reportable 12/13/17 05:58 Hem Pathologist Commnt No 12/13/17 05:58 PT 14.7 Sec. (12.2-14.9) 12/12/17 19:02 INR 1.09 (0.87-1.13) 12/12/17 19:02 POC ABG pH 7.247 (7.35-7.45) L 12/14/17 05:16 POC ABG pCO2 61.2 (35-45) H 12/14/17 05:16 POC ABG pO2 53 (80-105) L 12/14/17 05:16 POC ABG HCO3 26.7 12/14/17 05:16 POC ABG Total CO2 29 12/14/17 05:16 POC ABG O2 Sat 80 12/14/17 05:16 POC ABG Base Excess -1 12/14/17 05:16 VBG pH 7.472 (7.320-7.420) H 12/12/17 19:18 FiO2 100 % 12/14/17 05:16 Sodium 132 mmol/L (137-145) L D 12/13/17 05:58 Potassium 4.2 mmol/L (3.6-5.0) 12/13/17 05:58 Chloride 90.0 mmol/L (98-107) L 12/13/17 05:58 Carbon Dioxide 20 mmol/L (22-30) L 12/13/17 05:58 Anion Gap 26 mmol/L 12/13/17 05:58 BUN 16 mg/dL (9-20) 12/13/17 05:58 Creatinine 1.0 mg/dL (0.8-1.5) 12/13/17 05:58 Estimated GFR > 60 ml/min 12/13/17 05:58 BUN/Creatinine Ratio 16 % 12/13/17 05:58 Glucose 346 mg/dL (75-100) H 12/13/17 05:58 POC Glucose 230 (70-105) H 12/14/17 05:32 Lactic Acid 2.00 mmol/L (0.7-2.0) 12/13/17 19:38 Calcium 8.2 mg/dL (8.4-10.2) L 12/13/17 05:58 Total Bilirubin 4.60 mg/dL (0.1-1.2) H 12/12/17 19:02 AST 93 units/L (5-40) H 12/12/17 19:02 ALT 112 units/L (7-56) H 12/12/17 19:02 Alkaline Phosphatase 80 units/L (35-129) 12/12/17 19:02 NT-Pro-B Natriuret Pep 409.9 pg/mL (0-450) 12/12/17 19:02 Total Protein 6.5 g/dL (6.3-8.2) 12/12/17 19:02 Albumin 2.5 g/dL (3.9-5) L 12/12/17 19:02 Albumin/Globulin Ratio 0.6 % 12/12/17 19:02 Amylase 20 units/L (27-131) L 12/13/17 13:47 Lipase 9 units/L (13-60) L 12/13/17 13:47 Urine Color [place] (Yellow) 12/12/17 20:42 Urine Turbidity Clear (Clear) 12/12/17 20:42 Urine pH 5.0 (5.0-7.0) 12/12/17 20:42 Ur Specific [place] 1.021 (1.003-1.030) 12/12/17 20:42 Urine Protein 100 mg/dl mg/dL (Negative) 12/12/17 20:42 Urine Glucose (UA) >=500 mg/dL (Negative) 12/12/17 20:42 Urine Ketones Tr mg/dL (Negative) 12/12/17 20:42 Urine Blood Lg (Negative) 12/12/17 20:42 Urine Nitrite Neg (Negative) 12/12/17 20: Urine Bilirubin Sm (Negative) 12/12/17 20:42 Urine Ictotest Positive (Negative) 12/12/17 20: Urine Urobilinogen 4.0 mg/dL (<2.0) 12/12/17 20:42 Ur Leukocyte Esterase Neg (Negative) 12/12/17 20:42 Urine WBC (Auto) 2.0 /HPF (0.0-6.0) 12/12/17 20:42 Urine RBC (Auto) 1.0 /HPF (0.0-6.0) 12/12/17 20:42 U Epithel Cells (Auto) < 1.0 /HPF (0-13.0) 12/12/17 20:42 Urine Bacteria (Auto) 1+ /HPF (Negative) 12/12/17 20:42 Urine Mucus 1+ /HPF 12/12/17 20:42 Influenza A (Rapid) Negative (Negative) 12/12/17 22:00 Influenza B (Rapid) Negative (Negative) 12/12/17 22:00
--- NOTE | 2017-12-14 12:08 | Progress Note ---
Assessment and Plan Acute hypoxemic respiratory failure ARDS Pneumonia. Clinical picture suggestive of either aspiration pneumonia, CAP cannot be fully excluded at this point ARDS Severe sepsis Mixed lactic, respiratory anion gap acidosis Thrombocytopenia. Sepsis related versus history of alcohol use Diabetes mellitus Abdominal distention. Cause unknown Obesity Recommendations f/u hospital ventilator bundle, Mechanical ventilation support, adjust FiO2 with goal of maintaining oximetry at or above 92% Titrate PEEP up to maintain oximetry > 90% initially Set tidal Volume set initially at 8 cm , then 6 cc/kg PBW for MARY ANN protection Keep PIP < 30 Sedation as needed for patient comfort, adjust to RASS -1 to - 3 May need to paralyse pt next 24 hr x ARDS care Maintain extubation precautions Daily morning sedation vacation and initiate SBT if deemed appropriate DVT prophylaxis PPI prophylaxis SC B/C q 15 min x 2 U Legionella, S.pneumonia ag Mycoplasma titers Continue with current antibiotic. Short course of IV steroids. Total critical care time 31 minutes. Subjective Date of service: 12/14/17 Interval history: Patient remains intubated on mechanical ventilator. Patient on AP RV mode with FiO2 of 85%. Patient is sedated with Versed and fentanyl. Objective Vital Signs - 12hr 12/14/17 12/14/17 12/14/17 00:11 00:20 00:30 Temperature Pulse Rate 110 H 111 H 108 H Pulse Rate [ Anterior Bilateral Throughout] Respiratory 13 14 13 Rate Respiratory Rate [Anterior Bilateral Throughout] Respiratory Rate [chest] Blood Pressure 95/67 95/67 O2 Sat by Pulse 88 89 88 Oximetry 12/14/17 12/14/17 12/14/17 00:40 00:50 01:00 Temperature Pulse Rate 107 H 106 H 107 H Pulse Rate [ Anterior Bilateral Throughout] Respiratory 13 14 13 Rate Respiratory Rate [Anterior Bilateral Throughout] Respiratory Rate [chest] Blood Pressure 95/67 95/67 112/67 O2 Sat by Pulse 87 87 86 Oximetry 12/14/17 12/14/17 12/14/17 01:10 01:20 01:23 Temperature Pulse Rate 106 H 107 H 107 H Pulse Rate [ Anterior Bilateral Throughout] Respiratory 13 13 20 Rate Respiratory Rate [Anterior Bilateral Throughout] Respiratory Rate [chest] Blood Pressure 112/67 112/67 95/67 O2 Sat by Pulse 88 88 87 Oximetry 12/14/17 12/14/17 12/14/17 01:30 01:40 01:50 Temperature Pulse Rate 107 H 110 H 108 H Pulse Rate [ Anterior Bilateral Throughout] Respiratory 13 13 13 Rate Respiratory Rate [Anterior Bilateral Throughout] Respiratory Rate [chest] Blood Pressure 112/67 112/67 112/67 O2 Sat by Pulse 87 88 87 Oximetry 12/14/17 12/14/17 12/14/17 02:00 02:10 02:20 Temperature Pulse Rate 107 H 108 H 112 H Pulse Rate [ Anterior Bilateral Throughout] Respiratory 16 14 15 Rate Respiratory Rate [Anterior Bilateral Throughout] Respiratory Rate [chest] Blood Pressure 109/68 109/68 109/68 O2 Sat by Pulse 87 91 88 Oximetry 12/14/17 12/14/17 12/14/17 02:25 02:30 02:40 Temperature Pulse Rate 109 H 109 H Pulse Rate [ 112 H Anterior Bilateral Throughout] Respiratory 15 14 Rate Respiratory 31 H Rate [Anterior Bilateral Throughout] Respiratory Rate [chest] Blood Pressure 109/68 109/68 O2 Sat by Pulse 92 93 Oximetry 12/14/17 12/14/17 12/14/17 02:50 03:00 03:10 Temperature Pulse Rate 109 H 112 H 109 H Pulse Rate [ Anterior Bilateral Throughout] Respiratory 12 12 13 Rate Respiratory Rate [Anterior Bilateral Throughout] Respiratory Rate [chest] Blood Pressure 109/68 109/66 109/66 O2 Sat by Pulse 92 92 93 Oximetry 12/14/17 12/14/17 12/14/17 03:20 03:30 03:32 Temperature 98.6 F Pulse Rate 107 H 107 H Pulse Rate [ Anterior Bilateral Throughout] Respiratory 15 15 Rate Respiratory Rate [Anterior Bilateral Throughout] Respiratory Rate [chest] Blood Pressure 109/68 109/68 O2 Sat by Pulse 91 91 Oximetry 12/14/17 12/14/17 12/14/17 03:40 03:50 04:00 Temperature Pulse Rate 107 H 106 H 106 H Pulse Rate [ Anterior Bilateral Throughout] Respiratory 14 13 13 Rate Respiratory Rate [Anterior Bilateral Throughout] Respiratory Rate [chest] Blood Pressure 109/68 109/66 113/66 O2 Sat by Pulse 91 92 92 Oximetry 12/14/17 12/14/17 12/14/17 04:04 04:10 04:20 Temperature Pulse Rate 106 H 106 H Pulse Rate [ Anterior Bilateral Throughout] Respiratory 12 13 14 Rate Respiratory Rate [Anterior Bilateral Throughout] Respiratory Rate [chest] Blood Pressure 113/66 113/66 O2 Sat by Pulse 92 92 93 Oximetry 12/14/17 12/14/18 18 04:30 04:40 04:50 Temperature Pulse Rate 107 H 106 H 105 H Pulse Rate [ Anterior Bilateral Throughout] Respiratory 14 12 12 Rate Respiratory Rate [Anterior Bilateral Throughout] Respiratory Rate [chest] Blood Pressure 113/66 113/66 113/66 O2 Sat by Pulse 93 94 92 Oximetry 12/14/18 12/14/18 18 05:00 05:10 05:20 Temperature Pulse Rate 103 H 105 H 105 H Pulse Rate [ Anterior Bilateral Throughout] Respiratory 13 17 13 Rate Respiratory Rate [Anterior Bilateral Throughout] Respiratory Rate [chest] Blood Pressure 118/60 118/60 118/60 O2 Sat by Pulse 92 93 95 Oximetry 12/14/18 12/14/18 12/14/17 05:30 05:32 05:40 Temperature Pulse Rate 105 H 107 H 104 H Pulse Rate [ Anterior Bilateral Throughout] Respiratory 13 17 13 Rate Respiratory Rate [Anterior Bilateral Throughout] Respiratory Rate [chest] Blood Pressure 118/60 113/66 118/60 O2 Sat by Pulse 95 94 94 Oximetry 12/14/18 12/14/18 12/14/17 05:50 06:00 06:10 Temperature Pulse Rate 104 H 102 H 104 H Pulse Rate [ Anterior Bilateral Throughout] Respiratory 12 16 14 Rate Respiratory Rate [Anterior Bilateral Throughout] Respiratory Rate [chest] Blood Pressure 118/60 114/64 114/64 O2 Sat by Pulse 94 93 95 Oximetry 12/14/18 /17/18 18 06:20 06:30 06:40 Temperature Pulse Rate 102 H 101 H 101 H Pulse Rate [ Anterior Bilateral Throughout] Respiratory 14 13 13 Rate Respiratory Rate [Anterior Bilateral Throughout] Respiratory Rate [chest] Blood Pressure 114/64 114/64 114/64 O2 Sat by Pulse 96 94 94 Oximetry 12/14/18 03/17/18 //18 06:50 07:00 07:10 Temperature Pulse Rate 100 H 100 H 100 H Pulse Rate [ Anterior Bilateral Throughout] Respiratory 13 13 15 Rate Respiratory Rate [Anterior Bilateral Throughout] Respiratory Rate [chest] Blood Pressure 114/64 116/62 116/62 O2 Sat by Pulse 93 93 93 Oximetry 12/14/18 17/18 12/14/18 07:20 07:30 07:40 Temperature Pulse Rate 103 H 102 H 100 H Pulse Rate [ Anterior Bilateral Throughout] Respiratory 12 12 13 Rate Respiratory Rate [Anterior Bilateral Throughout] Respiratory Rate [chest] Blood Pressure 116/62 116/62 116/62 O2 Sat by Pulse 93 95 94 Oximetry 12/14/17 12/14/17 12/14/17 07:50 08:00 08:10 Temperature 99.6 F Pulse Rate 100 H 99 H 99 H Pulse Rate [ Anterior Bilateral Throughout] Respiratory 12 13 15 Rate Respiratory Rate [Anterior Bilateral Throughout] Respiratory Rate [chest] Blood Pressure 116/62 101/56 101/56 O2 Sat by Pulse 94 94 94 Oximetry 12/14/17 12/14/17 12/14/17 08:20 08:30 08:48 Temperature Pulse Rate 98 H 97 H 98 H Pulse Rate [ Anterior Bilateral Throughout] Respiratory 17 18 17 Rate Respiratory Rate [Anterior Bilateral Throughout] Respiratory Rate [chest] Blood Pressure 101/56 101/56 101/56 O2 Sat by Pulse 94 95 93 Oximetry 12/14/17 12/14/17 12/14/17 09:00 10:00 11:00 Temperature Pulse Rate 100 H 100 H 103 H Pulse Rate [ Anterior Bilateral Throughout] Respiratory 15 26 H 12 Rate Respiratory Rate [Anterior Bilateral Throughout] Respiratory 19 Rate [chest] Blood Pressure 98/54 104/59 113/61 O2 Sat by Pulse 93 92 92 Oximetry Constitutional: no acute distress, asleep Eyes: non-icteric ENT: oropharynx moist, other (ETT at 24. NGT in position to suction) Neck: no JVD Ascultation: Right: rales, Bilateral: diminished breath sounds Cardiovascular: regular rate and rhythm, other (tachycardic) Gastrointestinal: hypoactive bowel sounds, other (distended and tympanic) Integumentary: normal Extremities: no cyanosis, no ischemia or petechiae Neurologic: unable to assess (R ASS -2) CBC and BMP: 12/13/17 05:58 12/13/17 05:58 ABG, PT/INR, D-dimer: ABG POC ABG pH 7.247 (7.35-7.45) L 12/14/17 05:16 POC ABG pCO2 61.2 (35-45) H 12/14/17 05:16 POC ABG pO2 53 (80-105) L 12/14/17 05:16 POC ABG HCO3 26.7 12/14/17 05:16 POC ABG Total CO2 29 12/14/17 05:16 POC ABG O2 Sat 80 12/14/17 05:16 PT/INR, D-dimer PT 14.7 Sec. (12.2-14.9) 12/12/17 19:02 INR 1.09 (0.87-1.13) 12/12/17 19:02 Abnormal lab findings: Abnormal Labs 12/12/17 12/12/17 12/12/17 18:57 19:02 19:02 MCV 96 H MCH 34 H MCHC 35 H Plt Count 46 L Seg Neuts % (Manual) 77.0 H Lymphocytes % (Manual) 13.0 L Monocytes % (Manual) Lymphocytes # (Manual) 0.9 L POC ABG pH POC ABG pCO2 POC ABG pO2 VBG pH Sodium Chloride Carbon Dioxide Glucose POC Glucose 321 H Lactic Acid 4.00 H* Calcium Total Bilirubin AST ALT Albumin Amylase Lipase 12/12/17 12/12/17 12/12/17 19:02 19:18 20:55 MCV MCH MCHC Plt Count Seg Neuts % (Manual) Lymphocytes % (Manual) Monocytes % (Manual) Lymphocytes # (Manual) POC ABG pH POC ABG pCO2 POC ABG pO2 VBG pH 7.472 H Sodium 124 L Chloride 80.0 L Carbon Dioxide 20 L Glucose 382 H POC Glucose 283 H Lactic Acid Calcium 8.1 L Total Bilirubin 4.60 H AST 93 H ALT 112 H Albumin 2.5 L Amylase Lipase 12/12/17 12/13/17 12/13/17 21:41 00:45 01:29 MCV MCH MCHC Plt Count Seg Neuts % (Manual) Lymphocytes % (Manual) Monocytes % (Manual) Lymphocytes # (Manual) POC ABG pH POC ABG pCO2 POC ABG pO2 VBG pH Sodium Chloride Carbon Dioxide Glucose POC Glucose Lactic Acid 4.20 H* 2.70 H* 3.30 H* Calcium Total Bilirubin AST ALT Albumin Amylase Lipase 12/13/17 12/13/17 12/13/17 02:19 03:44 05:58 MCV 97 H MCH 34 H MCHC 35 H Plt Count 41 L Seg Neuts % (Manual) Lymphocytes % (Manual) 8.0 L Monocytes % (Manual) 8.0 H Lymphocytes # (Manual) 0.6 L POC ABG pH 7.334 L POC ABG pCO2 POC ABG pO2 43 L VBG pH Sodium Chloride Carbon Dioxide Glucose POC Glucose Lactic Acid 2.60 H* Calcium Total Bilirubin AST ALT Albumin Amylase Lipase 12/13/17 12/13/17 12/13/17 05:58 05:58 05:58 MCV MCH MCHC Plt Count Seg Neuts % (Manual) Lymphocytes % (Manual) Monocytes % (Manual) Lymphocytes # (Manual) POC ABG pH POC ABG pCO2 POC ABG pO2 VBG pH Sodium 132 L D Chloride 90.0 L Carbon Dioxide 20 L Glucose 346 H POC Glucose 298 H Lactic Acid 4.50 H* Calcium 8.2 L Total Bilirubin AST ALT Albumin Amylase Lipase 12/13/17 12/13/17 12/13/17 06:27 09:42 11:47 MCV MCH MCHC Plt Count Seg Neuts % (Manual) Lymphocytes % (Manual) Monocytes % (Manual) Lymphocytes # (Manual) POC ABG pH 7.267 L 7.298 L POC ABG pCO2 50.4 H 51.3 H POC ABG pO2 47 L 43 L VBG pH Sodium Chloride Carbon Dioxide Glucose POC Glucose 376 H Lactic Acid Calcium Total Bilirubin AST ALT Albumin Amylase Lipase 12/13/17 12/13/17 12/13/17 12:03 13:47 13:47 MCV MCH MCHC Plt Count Seg Neuts % (Manual) Lymphocytes % (Manual) Monocytes % (Manual) Lymphocytes # (Manual) POC ABG pH 7.264 L POC ABG pCO2 54.9 H POC ABG pO2 55 L VBG pH Sodium Chloride Carbon Dioxide Glucose POC Glucose Lactic Acid 2.80 H* Calcium Total Bilirubin AST ALT Albumin Amylase 20 L Lipase 9 L 12/13/17 12/13/17 12/13/17 15:36 17:39 21:47 MCV MCH MCHC Plt Count Seg Neuts % (Manual) Lymphocytes % (Manual) Monocytes % (Manual) Lymphocytes # (Manual) POC ABG pH 7.229 L 7.225 L POC ABG pCO2 60.9 H 66.3 H POC ABG pO2 42 L 41 L VBG pH Sodium Chloride Carbon Dioxide Glucose POC Glucose 289 H Lactic Acid Calcium Total Bilirubin AST ALT Albumin Amylase Lipase 12/13/17 12/14/17 12/14/17 22:19 02:03 05:16 MCV MCH MCHC Plt Count Seg Neuts % (Manual) Lymphocytes % (Manual) Monocytes % (Manual) Lymphocytes # (Manual) POC ABG pH 7.247 L POC ABG pCO2 61.2 H POC ABG pO2 53 L VBG pH Sodium Chloride Carbon Dioxide Glucose POC Glucose 274 H 295 H Lactic Acid Calcium Total Bilirubin AST ALT Albumin Amylase Lipase 12/14/17 05:32 MCV MCH MCHC Plt Count Seg Neuts % (Manual) Lymphocytes % (Manual) Monocytes % (Manual) Lymphocytes # (Manual) POC ABG pH POC ABG pCO2 POC ABG pO2 VBG pH Sodium Chloride Carbon Dioxide Glucose POC Glucose 230 H Lactic Acid Calcium Total Bilirubin AST ALT Albumin Amylase Lipase Chest x-ray: image reviewed (worsening bilateral airspace disease)
[2017-12-14] MEDS: MIDAZOLAM 100 MG in NACL 0.9% 80 ML IV SCH (21:22)
[2017-12-15] MEDS: HumaLOG SUB-Q SCH ×6 (02:27→21:34)
[2017-12-15] MEDS: DUONEB *Not for PRN Use IH SCH ×4 (02:46→19:44)
--- NOTE | 2017-12-15 04:29 | XRay Report ---
FINAL REPORT PROCEDURE: XR CHEST 1V AP TECHNIQUE: Chest radiograph anteroposterior view. CPT 83862 HISTORY: follow up respiratory failure COMPARISON: 12/14/2017 FINDINGS: Heart: Normal. Mediastinum/Vessels: Normal. Lungs/Pleural space: Improved aeration both lungs. No effusion or pneumothorax. Slight atelectasis bilateral lower lungs. Bony thorax: No acute osseous abnormality. Life support devices: The endotracheal tube ends 4 centimeters above the valentín. A nasogastric tube ends below the hemidiaphragms. IMPRESSION: Improved aeration of both lungs. Slight atelectasis bilateral lower lungs is noted. The endotracheal tube and nasogastric tube are properly positioned..
[2017-12-15 04:36] LABS: Hematocrit 33.8 % (35.5-45.6); Hemoglobin 11.3 gm/dl (11.8-15.2); Mean Corpuscular HGB Conc 33 % (32-34); Mean Corpuscular Hemoglobin 33 pg (28-32); Mean Corpuscular Volume 100 fl (84-94); Red Cell Distribution Width 14.1 % (13.2-15.2)
[2017-12-15 04:43] LABS: Platelet Count 48 K/mm3 (140-440)
[2017-12-15 04:46] LABS: INR 1.11 (0.87-1.13)
[2017-12-15 04:47] LABS: Partial Thromboplastin Time 20.9 Sec. (24.2-36.6)
[2017-12-15 04:50] LABS: BUN/Creatinine Ratio 27; Blood Urea Nitrogen 27 mg/dL (9-20); Calcium 8.1 mg/dL (8.4-10.2); Hemolysis Index 2
[2017-12-15] MEDS: VANCOMYCIN 1,500 MG in NACL 0.9% 500 ML 500 ML IV SCH ×2 (05:40→17:30)
[2017-12-15 06:11] LABS: Total Cells Counted 100
[2017-12-15 06:12] LABS: Band Neutrophils # (Manual) 7.1 K/mm3; Basophils % (Manual) 0 % (0.0-1.8); Eosinophils % (Manual) 0 % (0.0-4.3); Myelocytes # (Manual) 0.5 K/mm3; Target Cells 1+
[2017-12-15 06:13] LABS: Platelet Estimate Consistent w Auto
[2017-12-15] MEDS: ZOSYN/NS 3.375GM/50ML 3.375 GM/50 ML BAG IV SCH ×3 (06:36→19:03)
[2017-12-15] MEDS: fentaNYL DRIP Premix 2,000 MCG/100 ML BAG IV SCH ×3 (07:15→21:26)
[2017-12-15] MEDS: NACL 0.9% 1000 ML 1,000 ML IV SCH ×2 (08:37→19:01)
[2017-12-15] MEDS: LEVAQUIN 750MG/150ML 750 MG/150 ML BAG IV SCH (10:31)
[2017-12-15] MEDS: VITAMIN B-1 100 MG in NACL 0.9% 50 ML IV SCH (10:31)
[2017-12-15] MEDS: SODIUM CHLORIDE FLUSH SYRINGE 10 ML IV SCH ×2 (10:32→21:28)
[2017-12-15] MEDS: PEPCID IV SCH ×2 (11:26→21:31)
--- NOTE | 2017-12-15 11:38 | Progress Note ---
Assessment and Plan Assessment and plan: Patient is a 47 yo man with a history of tobacco dependency, alcohol abuse, dm type 2, hypertension and asthma who presented to [facility] ED with SOB and found to be severely hypoxic, failed bipap and was intubated. There is report of n/v during and after intubation. I don't know if the initial cxr was before or after bipap. -Acute hypoxic respiratory failure suspected due to aspiration pneumonia: on iv zosyn/levaquin/vancomycin -suspected ARDS: Pulmonology is following -Sepsis Aspiration pneumonia: Treated with IV antibiotics, IV fluids -Alcohol abuse: sedated, add iv thiamine -Hypotensive: added ivfs -Thrombocytopenia, severe most likely due to sepsis: hold heparin -DVT prophylaxis: scd only, plt count only 41. Trying to wean 100% fiO2, down to 9%% aprv ventilator settings History Interval history: Patient was seen and examined. Follow-up on current diagnosis of respiratory failure, patient is currently intubated. Imaging, nursing note, chart, labs and old chart reviewed. Discussed with nursing. Hospitalist Physical - Physical exam Narrative exam: GEN: Ill-appearing HEENT: NCAT, pupils react, ET tube, NG tube in place NECK: supple, CVS/HEART:regular tachy NORMAL S1S2, pulses present bilaterally CHEST/LUNGS: Symmetrical chest expansion, good air entry bilaterally GI/Abdomen: soft, distended, good bowel sounds, no guarding or rebound /Bladder: condom cath in place EXT/Skin: Dependent edema MSK: sedated Neuro: sedated Psych: sedated - Constitutional Vitals: Temp Pulse Resp BP Pulse Ox 100.9 F H 109 H 25 H 136/82 93 12/15/17 03:15 12/15/17 09:26 12/15/17 09:26 12/15/17 09:15 12/15/17 09:15 Results - Labs CBC & Chem 7: 12/15/17 04:05 12/15/17 04:05 Labs: Laboratory Last Values WBC 15.0 K/mm3 (4.5-11.0) H 12/15/17 04:05 RBC 3.40 M/mm3 (3.65-5.03) L 12/15/17 04:05 Hgb 11.3 gm/dl (11.8-15.2) L D 12/15/17 04:05 Hct 33.8 % (35.5-45.6) L D 12/15/17 04:05 MCV 100 fl (84-94) H 12/15/17 04:05 MCH 33 pg (28-32) H 12/15/17 04:05 MCHC 33 % (32-34) 12/15/17 04:05 RDW 14.1 % (13.2-15.2) 12/15/17 04:05 Plt Count 48 K/mm3 (140-440) L 12/15/17 04:05 [place] % (Auto) [employer] 12/12/17 19:02 Add Manual Diff Complete 12/15/17 04:05 Total Counted 100 12/15/17 04:05 Seg Neutrophils % [employer] 12/15/17 04:05 Seg Neuts % (Manual) 40.0 % (40.0-70.0) 12/15/17 04:05 Band Neutrophils % 47.0 % 12/15/17 04:05 Lymphocytes % (Manual) 3.0 % (13.4-35.0) L 12/15/17 04:05 Reactive Lymphs % (Man) 0 % 12/15/17 04:05 Monocytes % (Manual) 6.0 % (0.0-7.3) 12/15/17 04:05 Eosinophils % (Manual) 0 % (0.0-4.3) 12/15/17 04:05 Basophils % (Manual) 0 % (0.0-1.8) 12/15/17 04:05 Metamyelocytes % 1.0 % 12/15/17 04:05 Myelocytes % 3.0 % 12/15/17 04:05 Promyelocytes % 0 % 12/15/17 04:05 Blast Cells % 0 % 12/15/17 04:05 Nucleated RBC % 2.0 % (0.0-0.9) H 12/15/17 04:05 Seg Neutrophils # Man 6.0 K/mm3 (1.8-7.7) 12/15/17 04:05 Band Neutrophils # 7.1 K/mm3 12/15/17 04:05 Lymphocytes # (Manual) 0.5 K/mm3 (1.2-5.4) L 12/15/17 04:05 Abs React Lymphs (Man) 0.0 K/mm3 12/15/17 04:05 Monocytes # (Manual) 0.9 K/mm3 (0.0-0.8) H 12/15/17 04:05 Eosinophils # (Manual) 0.0 K/mm3 (0.0-0.4) 12/15/17 04:05 Basophils # (Manual) 0.0 K/mm3 (0.0-0.1) 12/15/17 04:05 Metamyelocytes # 0.2 K/mm3 12/15/17 04:05 Myelocytes # 0.5 K/mm3 12/15/17 04:05 Promyelocytes # 0.0 K/mm3 12/15/17 04:05 Blast Cells # 0.0 K/mm3 12/15/17 04:05 WBC Morphology Not Reportable 12/15/17 04:05 Hypersegmented Neuts Not Reportable 12/15/17 04:05 Hyposegmented Neuts Not Reportable 12/15/17 04:05 Hypogranular Neuts Not Reportable 12/15/17 04:05 Smudge Cells Not Reportable 12/15/17 04:05 Toxic Granulation Not Reportable 12/15/17 04:05 Toxic Vacuolation Not Reportable 12/15/17 04:05 Dohle Bodies Not Reportable 12/15/17 04:05 Pelger-Huet Anomaly Not Reportable 12/15/17 04:05 Mary Rods Not Reportable 12/15/17 04:05 Platelet Estimate Consistent w auto 12/15/17 04:05 Clumped Platelets Not Reportable 12/15/17 04:05 Plt Clumps, EDTA Not Reportable 12/15/17 04:05 Large Platelets Not Reportable 12/15/17 04:05 Giant Platelets Not Reportable 12/15/17 04:05 Platelet Satelliting Not Reportable 12/15/17 04:05 Plt Morphology Comment Not Reportable 12/15/17 04:05 RBC Morphology Not Reportable 12/15/17 04:05 Dimorphic RBCs Not Reportable 12/15/17 04:05 Polychromasia Not Reportable 12/15/17 04:05 Hypochromasia Not Reportable 12/15/17 04:05 Poikilocytosis Not Reportable 12/15/17 04:05 Anisocytosis Not Reportable 12/15/17 04:05 Microcytosis Not Reportable 12/15/17 04:05 Macrocytosis Not Reportable 12/15/17 04:05 Spherocytes Not Reportable 12/15/17 04:05 Pappenheimer Bodies Not Reportable 12/15/17 04:05 Sickle Cells Not Reportable 12/15/17 04:05 Target Cells 1+ 12/15/17 04:05 Tear Drop Cells Not Reportable 12/15/17 04:05 Ovalocytes Not Reportable 12/15/17 04:05 Helmet Cells Not Reportable 12/15/17 04:05 Arceo-Singac Bodies Not Reportable 12/15/17 04:05 [place] Rings Not Reportable 12/15/17 04:05 Chidi Cells Not Reportable 12/15/17 04:05 Bite Cells Not Reportable 12/15/17 04:05 Crenated Cell Not Reportable 12/15/17 04:05 Elliptocytes Not Reportable 12/15/17 04:05 Acanthocytes (Spur) Not Reportable 12/15/17 04:05 Rouleaux Not Reportable 12/15/17 04:05 Hemoglobin C Crystals Not Reportable 12/15/17 04:05 Schistocytes Not Reportable 12/15/17 04:05 Malaria parasites Not Reportable 12/15/17 04:05 Vipul Bodies Not Reportable 12/15/17 04:05 Hem Pathologist Commnt No 12/15/17 04:05 PT 14.9 Sec. (12.2-14.9) 12/15/17 04:05 INR 1.11 (0.87-1.13) 12/15/17 04:05 APTT 20.9 Sec. (24.2-36.6) L 12/15/17 04:05 POC ABG pH 7.330 (7.35-7.45) L 12/15/17 03:25 POC ABG pCO2 55.3 (35-45) H 12/15/17 03:25 POC ABG pO2 59 (80-105) L 12/15/17 03:25 POC ABG HCO3 29.1 12/15/17 03:25 POC ABG Total CO2 31 12/15/17 03:25 POC ABG O2 Sat 87 12/15/17 03:25 POC ABG Base Excess 3 12/15/17 03:25 VBG pH 7.472 (7.320-7.420) H 12/12/17 19:18 FiO2 85 % 12/15/17 03:25 Sodium 143 mmol/L (137-145) D 12/15/17 04:05 Potassium 4.5 mmol/L (3.6-5.0) 12/15/17 04:05 Chloride 103.2 mmol/L (98-107) 12/15/17 04:05 Carbon Dioxide 26 mmol/L (22-30) 12/15/17 04:05 Anion Gap 18 mmol/L 12/15/17 04:05 BUN 27 mg/dL (9-20) H 12/15/17 04:05 Creatinine 1.0 mg/dL (0.8-1.5) 12/15/17 04:05 Estimated GFR > 60 ml/min 12/15/17 04:05 BUN/Creatinine Ratio 27 % 12/15/17 04:05 Glucose 258 mg/dL (75-100) H 12/15/17 04:05 POC Glucose 268 (70-105) H 12/15/17 11:17 Lactic Acid 2.00 mmol/L (0.7-2.0) 12/13/17 19:38 Calcium 8.1 mg/dL (8.4-10.2) L 12/15/17 04:05 Total Bilirubin 4.60 mg/dL (0.1-1.2) H 12/12/17 19:02 AST 93 units/L (5-40) H 12/12/17 19:02 ALT 112 units/L (7-56) H 12/12/17 19:02 Alkaline Phosphatase 80 units/L (35-129) 12/12/17 19:02 NT-Pro-B Natriuret Pep 409.9 pg/mL (0-450) 12/12/17 19:02 Total Protein 6.5 g/dL (6.3-8.2) 12/12/17 19:02 Albumin 2.5 g/dL (3.9-5) L 12/12/17 19:02 Albumin/Globulin Ratio 0.6 % 12/12/17 19:02 Amylase 20 units/L (27-131) L 12/13/17 13:47 Lipase 9 units/L (13-60) L 12/13/17 13:47 Urine Color Neeta (Yellow) 12/12/17 20:42 Urine Turbidity Clear (Clear) 12/12/17 20: Urine pH 5.0 (5.0-7.0) 12/12/17 20:42 Ur Specific [place] 1.021 (1.003-1.030) 12/12/17 20:42 Urine Protein 100 mg/dl mg/dL (Negative) 12/12/17 20: Urine Glucose (UA) >=500 mg/dL (Negative) 12/12/17 20: Urine Ketones Tr mg/dL (Negative) 12/12/17 20: Urine Blood Lg (Negative) 12/12/17 20: Urine Nitrite Neg (Negative) 12/12/17 20: Urine Bilirubin Sm (Negative) 12/12/17 20: Urine Ictotest Positive (Negative) 12/12/17 20: Urine Urobilinogen 4.0 mg/dL (<2.0) 12/12/17 20:42 Ur Leukocyte Esterase Neg (Negative) 12/12/17 20:42 Urine WBC (Auto) 2.0 /HPF (0.0-6.0) 12/12/17 20:42 Urine RBC (Auto) 1.0 /HPF (0.0-6.0) 12/12/17 20:42 U Epithel Cells (Auto) < 1.0 /HPF (0-13.0) 12/12/17 20:42 Urine Bacteria (Auto) 1+ /HPF (Negative) 12/12/17 20:42 Urine Mucus 1+ /HPF 12/12/17 20:42 Influenza A (Rapid) Negative (Negative) 12/12/17 22:00 Influenza B (Rapid) Negative (Negative) 12/12/17 22:00
[2017-12-15] MEDS: TYLENOL PO PRN (13:26)
--- NOTE | 2017-12-15 13:32 | Progress Note ---
Assessment and Plan Acute hypoxemic respiratory failure ARDS Pneumonia. Clinical picture suggestive of either aspiration pneumonia, CAP cannot be fully excluded at this point ARDS Severe sepsis Mixed lactic, respiratory anion gap acidosis Thrombocytopenia. Sepsis related versus history of alcohol use Diabetes mellitus Abdominal distention. Cause unknown Obesity Improving chest x-ray however oxygenation is still very poor Recommendations f/u hospital ventilator bundle, Mechanical ventilation support, adjust FiO2 with goal of maintaining oximetry at or above 92% Titrate PEEP up to maintain oximetry > 90% initially Set tidal Volume set initially at 8 cm , then 6 cc/kg PBW for MARY ANN protection Keep PIP < 30 Sedation as needed for patient comfort, adjust to RASS -1 to - 3 May need to paralyse pt next 24 hr x ARDS care Maintain extubation precautions Daily morning sedation vacation and initiate SBT if deemed appropriate DVT prophylaxis PPI prophylaxis SC B/C q 15 min x 2 U Legionella, S.pneumonia ag Mycoplasma titers Continue with current antibiotic. Short course of IV steroids. Total critical care time 31 minutes. Subjective Date of service: 12/15/17 Interval history: Patient remains intubated on mechanical ventilator. Patient on AP RV mode with FiO2 of 95%. Patient is sedated with Versed and fentanyl. Objective Vital Signs - 12hr 12/15/17 12/15/17 12/15/17 02:00 02:46 02:56 Temperature Pulse Rate 116 H Pulse Rate [ 109 H 119 H Anterior Bilateral Throughout] Respiratory 14 Rate Respiratory 35 H 36 H Rate [Anterior Bilateral Throughout] Blood Pressure 138/86 O2 Sat by Pulse 90 Oximetry 12/15/17 12/15/17 12/15/17 03:01 03:03 03:15 Temperature 100.9 F H Pulse Rate 121 H 121 H Pulse Rate [ Anterior Bilateral Throughout] Respiratory 19 38 H Rate Respiratory Rate [Anterior Bilateral Throughout] Blood Pressure 149/87 149/87 O2 Sat by Pulse 88 88 Oximetry 12/15/17 12/15/17 12/15/17 04:00 04:01 05:00 Temperature Pulse Rate 109 H 108 H Pulse Rate [ Anterior Bilateral Throughout] Respiratory 12 12 12 Rate Respiratory Rate [Anterior Bilateral Throughout] Blood Pressure 132/85 147/94 O2 Sat by Pulse 94 94 94 Oximetry 12/15/17 12/15/17 12/15/17 06:00 06:56 07:00 Temperature Pulse Rate 115 H 106 H Pulse Rate [ Anterior Bilateral Throughout] Respiratory 12 12 25 H Rate Respiratory Rate [Anterior Bilateral Throughout] Blood Pressure 151/95 154/82 O2 Sat by Pulse 93 92 92 Oximetry 12/15/17 12/15/17 12/15/17 08:00 09:15 09:18 Temperature Pulse Rate 106 H 111 H Pulse Rate [ 109 H Anterior Bilateral Throughout] Respiratory 15 31 H Rate Respiratory 28 H Rate [Anterior Bilateral Throughout] Blood Pressure 133/87 136/82 O2 Sat by Pulse 92 93 Oximetry 12/15/17 12/15/17 12/15/17 09:26 12:05 12:08 Temperature 102.2 F H Pulse Rate 105 H Pulse Rate [ 109 H Anterior Bilateral Throughout] Respiratory 30 H Rate Respiratory 25 H Rate [Anterior Bilateral Throughout] Blood Pressure 143/86 O2 Sat by Pulse 93 Oximetry 12/15/17 13:26 Temperature Pulse Rate Pulse Rate [ Anterior Bilateral Throughout] Respiratory 26 H Rate Respiratory Rate [Anterior Bilateral Throughout] Blood Pressure O2 Sat by Pulse Oximetry Constitutional: no acute distress, asleep Eyes: non-icteric ENT: oropharynx moist, other (ETT at 24. NGT in position to suction) Neck: no JVD Ascultation: Right: rales, Bilateral: diminished breath sounds Cardiovascular: regular rate and rhythm, other (tachycardic) Gastrointestinal: hypoactive bowel sounds, other (distended and tympanic) Integumentary: normal Extremities: no cyanosis, no ischemia or petechiae Neurologic: unable to assess (R ASS -2) CBC and BMP: 12/15/17 04:05 12/15/17 04:05 ABG, PT/INR, D-dimer: ABG POC ABG pH 7.330 (7.35-7.45) L 12/15/17 03:25 POC ABG pCO2 55.3 (35-45) H 12/15/17 03:25 POC ABG pO2 59 (80-105) L 12/15/17 03:25 POC ABG HCO3 29.1 12/15/17 03:25 POC ABG Total CO2 31 12/15/17 03:25 POC ABG O2 Sat 87 12/15/17 03:25 PT/INR, D-dimer PT 14.9 Sec. (12.2-14.9) 12/15/17 04:05 INR 1.11 (0.87-1.13) 12/15/17 04:05 Abnormal lab findings: Abnormal Labs 12/12/17 12/12/17 12/12/17 18:57 19:02 19:02 WBC RBC Hgb Hct MCV 96 H MCH 34 H MCHC 35 H Plt Count 46 L Seg Neuts % (Manual) 77.0 H Lymphocytes % (Manual) 13.0 L Monocytes % (Manual) Nucleated RBC % Lymphocytes # (Manual) 0.9 L Monocytes # (Manual) APTT POC ABG pH POC ABG pCO2 POC ABG pO2 VBG pH Sodium Chloride Carbon Dioxide BUN Glucose POC Glucose 321 H Lactic Acid 4.00 H* Calcium Total Bilirubin AST ALT Albumin Amylase Lipase 12/12/17 12/12/17 12/12/17 19:02 19:18 20:55 WBC RBC Hgb Hct MCV MCH MCHC Plt Count Seg Neuts % (Manual) Lymphocytes % (Manual) Monocytes % (Manual) Nucleated RBC % Lymphocytes # (Manual) Monocytes # (Manual) APTT POC ABG pH POC ABG pCO2 POC ABG pO2 VBG pH 7.472 H Sodium 124 L Chloride 80.0 L Carbon Dioxide 20 L BUN Glucose 382 H POC Glucose 283 H Lactic Acid Calcium 8.1 L Total Bilirubin 4.60 H AST 93 H ALT 112 H Albumin 2.5 L Amylase Lipase 12/12/17 12/13/17 12/13/17 21:41 00:45 01:29 WBC RBC Hgb Hct MCV MCH MCHC Plt Count Seg Neuts % (Manual) Lymphocytes % (Manual) Monocytes % (Manual) Nucleated RBC % Lymphocytes # (Manual) Monocytes # (Manual) APTT POC ABG pH POC ABG pCO2 POC ABG pO2 VBG pH Sodium Chloride Carbon Dioxide BUN Glucose POC Glucose Lactic Acid 4.20 H* 2.70 H* 3.30 H* Calcium Total Bilirubin AST ALT Albumin Amylase Lipase 12/13/17 12/13/17 12/13/17 02:19 03:44 05:58 WBC RBC Hgb Hct MCV 97 H MCH 34 H MCHC 35 H Plt Count 41 L Seg Neuts % (Manual) Lymphocytes % (Manual) 8.0 L Monocytes % (Manual) 8.0 H Nucleated RBC % Lymphocytes # (Manual) 0.6 L Monocytes # (Manual) APTT POC ABG pH 7.334 L POC ABG pCO2 POC ABG pO2 43 L VBG pH Sodium Chloride Carbon Dioxide BUN Glucose POC Glucose Lactic Acid 2.60 H* Calcium Total Bilirubin AST ALT Albumin Amylase Lipase 12/13/17 12/13/17 12/13/17 05:58 05:58 05:58 WBC RBC Hgb Hct MCV MCH MCHC Plt Count Seg Neuts % (Manual) Lymphocytes % (Manual) Monocytes % (Manual) Nucleated RBC % Lymphocytes # (Manual) Monocytes # (Manual) APTT POC ABG pH POC ABG pCO2 POC ABG pO2 VBG pH Sodium 132 L D Chloride 90.0 L Carbon Dioxide 20 L BUN Glucose 346 H POC Glucose 298 H Lactic Acid 4.50 H* Calcium 8.2 L Total Bilirubin AST ALT Albumin Amylase Lipase 12/13/17 12/13/17 12/13/17 06:27 09:42 11:47 WBC RBC Hgb Hct MCV MCH MCHC Plt Count Seg Neuts % (Manual) Lymphocytes % (Manual) Monocytes % (Manual) Nucleated RBC % Lymphocytes # (Manual) Monocytes # (Manual) APTT POC ABG pH 7.267 L 7.298 L POC ABG pCO2 50.4 H 51.3 H POC ABG pO2 47 L 43 L VBG pH Sodium Chloride Carbon Dioxide BUN Glucose POC Glucose 376 H Lactic Acid Calcium Total Bilirubin AST ALT Albumin Amylase Lipase 12/13/17 12/13/17 12/13/17 12:03 13:47 13:47 WBC RBC Hgb Hct MCV MCH MCHC Plt Count Seg Neuts % (Manual) Lymphocytes % (Manual) Monocytes % (Manual) Nucleated RBC % Lymphocytes # (Manual) Monocytes # (Manual) APTT POC ABG pH 7.264 L POC ABG pCO2 54.9 H POC ABG pO2 55 L VBG pH Sodium Chloride Carbon Dioxide BUN Glucose POC Glucose Lactic Acid 2.80 H* Calcium Total Bilirubin AST ALT Albumin Amylase 20 L Lipase 9 L 12/13/17 12/13/17 12/13/17 15:36 17:39 21:47 WBC RBC Hgb Hct MCV MCH MCHC Plt Count Seg Neuts % (Manual) Lymphocytes % (Manual) Monocytes % (Manual) Nucleated RBC % Lymphocytes # (Manual) Monocytes # (Manual) APTT POC ABG pH 7.229 L 7.225 L POC ABG pCO2 60.9 H 66.3 H POC ABG pO2 42 L 41 L VBG pH Sodium Chloride Carbon Dioxide BUN Glucose POC Glucose 289 H Lactic Acid Calcium Total Bilirubin AST ALT Albumin Amylase Lipase 12/13/17 12/14/17 12/14/17 22:19 02:03 05:16 WBC RBC Hgb Hct MCV MCH MCHC Plt Count Seg Neuts % (Manual) Lymphocytes % (Manual) Monocytes % (Manual) Nucleated RBC % Lymphocytes # (Manual) Monocytes # (Manual) APTT POC ABG pH 7.247 L POC ABG pCO2 61.2 H POC ABG pO2 53 L VBG pH Sodium Chloride Carbon Dioxide BUN Glucose POC Glucose 274 H 295 H Lactic Acid Calcium Total Bilirubin AST ALT Albumin Amylase Lipase 12/14/17 12/14/17 12/14/17 05:32 12:04 16:22 WBC RBC Hgb Hct MCV MCH MCHC Plt Count Seg Neuts % (Manual) Lymphocytes % (Manual) Monocytes % (Manual) Nucleated RBC % Lymphocytes # (Manual) Monocytes # (Manual) APTT POC ABG pH POC ABG pCO2 POC ABG pO2 VBG pH Sodium Chloride Carbon Dioxide BUN Glucose POC Glucose 230 H 241 H 231 H Lactic Acid Calcium Total Bilirubin AST ALT Albumin Amylase Lipase 12/14/17 12/15/17 12/15/17 21:29 02:29 03:25 WBC RBC Hgb Hct MCV MCH MCHC Plt Count Seg Neuts % (Manual) Lymphocytes % (Manual) Monocytes % (Manual) Nucleated RBC % Lymphocytes # (Manual) Monocytes # (Manual) APTT POC ABG pH 7.330 L POC ABG pCO2 55.3 H POC ABG pO2 59 L VBG pH Sodium Chloride Carbon Dioxide BUN Glucose POC Glucose 258 H 246 H Lactic Acid Calcium Total Bilirubin AST ALT Albumin Amylase Lipase 12/15/17 12/15/17 12/15/17 04:05 04:05 04:05 WBC 15.0 H RBC 3.40 L Hgb 11.3 L D Hct 33.8 L D MCV 100 H MCH 33 H MCHC Plt Count 48 L Seg Neuts % (Manual) Lymphocytes % (Manual) 3.0 L Monocytes % (Manual) Nucleated RBC % 2.0 H Lymphocytes # (Manual) 0.5 L Monocytes # (Manual) 0.9 H APTT 20.9 L POC ABG pH POC ABG pCO2 POC ABG pO2 VBG pH Sodium Chloride Carbon Dioxide BUN 27 H Glucose 258 H POC Glucose Lactic Acid Calcium 8.1 L Total Bilirubin AST ALT Albumin Amylase Lipase 12/15/17 12/15/17 05:32 11:17 WBC RBC Hgb Hct MCV MCH MCHC Plt Count Seg Neuts % (Manual) Lymphocytes % (Manual) Monocytes % (Manual) Nucleated RBC % Lymphocytes # (Manual) Monocytes # (Manual) APTT POC ABG pH POC ABG pCO2 POC ABG pO2 VBG pH Sodium Chloride Carbon Dioxide BUN Glucose POC Glucose 247 H 268 H Lactic Acid Calcium Total Bilirubin AST ALT Albumin Amylase Lipase Chest x-ray: image reviewed (significant improvement in bilateral interstitial infiltrates)
[2017-12-15 17:15] LABS: Bacteria,Urine 1+ /HPF (Negative); Bilirubin,Urine NEG (Negative); Blood,Urine LG (Negative); Color,Urine Amber (Yellow); Urobilinogen,Urine < 2.0 mg/dL (<2.0)
[2017-12-15] MEDS: MIDAZOLAM 100 MG in NACL 0.9% 80 ML IV SCH (21:27)
[2017-12-16] MEDS: ZOSYN/NS 3.375GM/50ML 3.375 GM/50 ML BAG IV SCH ×4 (00:29→19:22)
[2017-12-16] MEDS: DUONEB *Not for PRN Use IH SCH ×5 (01:21→20:39)
[2017-12-16] MEDS: HumaLOG SUB-Q SCH ×7 (03:20→22:11)
[2017-12-16 04:36] LABS: Hematocrit 35.4 % (35.5-45.6); Hemoglobin 11.3 gm/dl (11.8-15.2); Mean Corpuscular HGB Conc 32 % (32-34); Mean Corpuscular Hemoglobin 32 pg (28-32); Mean Corpuscular Volume 101 fl (84-94); Red Cell Distribution Width 14.1 % (13.2-15.2)
[2017-12-16 04:42] LABS: Platelet Count 54 K/mm3 (140-440)
[2017-12-16] MEDS: fentaNYL DRIP Premix 2,000 MCG/100 ML BAG IV SCH ×4 (04:49→23:55)
[2017-12-16] MEDS: NACL 0.9% 1000 ML 1,000 ML IV SCH ×2 (04:50→14:51)
[2017-12-16] MEDS: VANCOMYCIN 1,500 MG in NACL 0.9% 500 ML 500 ML IV SCH ×2 (04:56→16:43)
[2017-12-16 05:01] LABS: BUN/Creatinine Ratio 35; Blood Urea Nitrogen 28 mg/dL (9-20); Calcium 8.3 mg/dL (8.4-10.2); Hemolysis Index 40
--- NOTE | 2017-12-16 06:50 | XRay Report ---
FINAL REPORT PROCEDURE: XR CHEST 1V AP TECHNIQUE: Chest radiograph anteroposterior view. CPT 46587 HISTORY: follow up respiratory failure COMPARISON: 12/15/2017 FINDINGS: Heart: Normal. Mediastinum/Vessels: Normal. Lungs/Pleural space: Mild vascular congestion. Slight atelectasis both lower lungs.. Bony thorax: No acute osseous abnormality. Life support devices: The endotracheal tube ends 4 centimeters above the valentín. A nasogastric tube ends below the hemidiaphragms. IMPRESSION: Vascular congestion with slight atelectasis bilateral lower lungs..
--- NOTE | 2017-12-16 07:28 | Progress Note ---
Assessment and Plan Assessment and plan: Patient is a 47 yo man with a history of tobacco dependency, alcohol abuse, dm type 2, hypertension and asthma who presented to [facility] ED with SOB and found to be severely hypoxic, failed bipap and was intubated. There is report of n/v during and after intubation. I don't know if the initial cxr was before or after bipap. -Acute hypoxic respiratory failure suspected due to aspiration pneumonia: on iv zosyn/levaquin/vancomycin -suspected ARDS: Pulmonology is following -Sepsis Aspiration pneumonia, poa: Treated with IV antibiotics, IV fluids -Alcohol abuse: sedated, add iv thiamine -Hypotensive resolved with ivfs and iv steroids -Thrombocytopenia, severe most likely due to sepsis: hold heparin -DVT prophylaxis: scd only, plt count only 41. Trying to wean 100% fiO2, down to 9%% aprv ventilator settings 12/16/17: Still intubated and sedated, overnight Tmax 100.8F, blood culture ordered and pending, RN noticed blood in ETT and Dr. Lobato was notified, nonetheless, H/H did not drop and plt counts actually improved to 54. Restaint renewed. History Interval history: Patient was seen and examined. Follow-up on current diagnosis of respiratory failure, patient is currently intubated. Imaging, nursing note, chart, labs and old chart reviewed. Discussed with nursing. Hospitalist Physical - Physical exam Narrative exam: GEN: Ill-appearing HEENT: NCAT, pupils react, ET tube, NG tube in place NECK: supple, CVS/HEART:regular tachy NORMAL S1S2, pulses present bilaterally CHEST/LUNGS: Symmetrical chest expansion, good air entry bilaterally GI/Abdomen: soft, distended, good bowel sounds, no guarding or rebound /Bladder: condom cath in place EXT/Skin: Dependent edema MSK: sedated Neuro: sedated Psych: sedated - Constitutional Vitals: Temp Pulse Resp BP Pulse Ox 97.7 F 86 12 140/87 8 L 12/16/17 03:03 12/16/17 06:00 12/16/17 06:00 12/16/17 06:00 12/16/17 06:00 Results - Labs CBC & Chem 7: 12/16/17 04:18 12/16/17 04:18 Labs: Laboratory Last Values WBC 16.4 K/mm3 (4.5-11.0) H 12/16/17 04:18 RBC 3.50 M/mm3 (3.65-5.03) L 12/16/17 04:18 Hgb 11.3 gm/dl (11.8-15.2) L 12/16/17 04:18 Hct 35.4 % (35.5-45.6) L 12/16/17 04:18 MCV 101 fl (84-94) H 12/16/17 04:18 MCH 32 pg (28-32) 12/16/17 04:18 MCHC 32 % (32-34) 12/16/17 04:18 RDW 14.1 % (13.2-15.2) 12/16/17 04:18 Plt Count 54 K/mm3 (140-440) L 12/16/17 04:18 [place] % (Auto) Chief Substation Operator 12/12/17 19:02 Add Manual Diff Complete 12/15/17 04:05 Total Counted 100 12/15/17 04:05 Seg Neutrophils % Chief Substation Operator 12/15/17 04:05 Seg Neuts % (Manual) 40.0 % (40.0-70.0) 12/15/17 04:05 Band Neutrophils % 47.0 % 12/15/17 04:05 Lymphocytes % (Manual) 3.0 % (13.4-35.0) L 12/15/17 04:05 Reactive Lymphs % (Man) 0 % 12/15/17 04:05 Monocytes % (Manual) 6.0 % (0.0-7.3) 12/15/17 04:05 Eosinophils % (Manual) 0 % (0.0-4.3) 12/15/17 04:05 Basophils % (Manual) 0 % (0.0-1.8) 12/15/17 04:05 Metamyelocytes % 1.0 % 12/15/17 04:05 Myelocytes % 3.0 % 12/15/17 04:05 Promyelocytes % 0 % 12/15/17 04:05 Blast Cells % 0 % 12/15/17 04:05 Nucleated RBC % 2.0 % (0.0-0.9) H 12/15/17 04:05 Seg Neutrophils # Man 6.0 K/mm3 (1.8-7.7) 12/15/17 04:05 Band Neutrophils # 7.1 K/mm3 12/15/17 04:05 Lymphocytes # (Manual) 0.5 K/mm3 (1.2-5.4) L 12/15/17 04:05 Abs React Lymphs (Man) 0.0 K/mm3 12/15/17 04:05 Monocytes # (Manual) 0.9 K/mm3 (0.0-0.8) H 12/15/17 04:05 Eosinophils # (Manual) 0.0 K/mm3 (0.0-0.4) 12/15/17 04:05 Basophils # (Manual) 0.0 K/mm3 (0.0-0.1) 12/15/17 04:05 Metamyelocytes # 0.2 K/mm3 12/15/17 04:05 Myelocytes # 0.5 K/mm3 12/15/17 04:05 Promyelocytes # 0.0 K/mm3 12/15/17 04:05 Blast Cells # 0.0 K/mm3 12/15/17 04:05 WBC Morphology Not Reportable 12/15/17 04:05 Hypersegmented Neuts Not Reportable 12/15/17 04:05 Hyposegmented Neuts Not Reportable 12/15/17 04:05 Hypogranular Neuts Not Reportable 12/15/17 04:05 Smudge Cells Not Reportable 12/15/17 04:05 Toxic Granulation Not Reportable 12/15/17 04:05 Toxic Vacuolation Not Reportable 12/15/17 04:05 Dohle Bodies Not Reportable 12/15/17 04:05 Pelger-Huet Anomaly Not Reportable 12/15/17 04:05 Mary Rods Not Reportable 12/15/17 04:05 Platelet Estimate Consistent w auto 12/15/17 04:05 Clumped Platelets Not Reportable 12/15/17 04:05 Plt Clumps, EDTA Not Reportable 12/15/17 04:05 Large Platelets Not Reportable 12/15/17 04:05 Giant Platelets Not Reportable 12/15/17 04:05 Platelet Satelliting Not Reportable 12/15/17 04:05 Plt Morphology Comment Not Reportable 12/15/17 04:05 RBC Morphology Not Reportable 12/15/17 04:05 Dimorphic RBCs Not Reportable 12/15/17 04:05 Polychromasia Not Reportable 12/15/17 04:05 Hypochromasia Not Reportable 12/15/17 04:05 Poikilocytosis Not Reportable 12/15/17 04:05 Anisocytosis Not Reportable 12/15/17 04:05 Microcytosis Not Reportable 12/15/17 04:05 Macrocytosis Not Reportable 12/15/17 04:05 Spherocytes Not Reportable 12/15/17 04:05 Pappenheimer Bodies Not Reportable 12/15/17 04:05 Sickle Cells Not Reportable 12/15/17 04:05 Target Cells 1+ 12/15/17 04:05 Tear Drop Cells Not Reportable 12/15/17 04:05 Ovalocytes Not Reportable 12/15/17 04:05 Helmet Cells Not Reportable 12/15/17 04:05 [place] Bodies Not Reportable 12/15/17 04:05 [place] Rings Not Reportable 12/15/17 04:05 [place] Cells Not Reportable 12/15/17 04:05 Bite Cells Not Reportable 12/15/17 04:05 Crenated Cell Not Reportable 12/15/17 04:05 Elliptocytes Not Reportable 12/15/17 04:05 Acanthocytes (Spur) Not Reportable 12/15/17 04:05 Rouleaux Not Reportable 12/15/17 04:05 Hemoglobin C Crystals Not Reportable 12/15/17 04:05 Schistocytes Not Reportable 12/15/17 04:05 Malaria parasites Not Reportable 12/15/17 04:05 Vipul Bodies Not Reportable 12/15/17 04:05 Hem Pathologist Commnt No 12/15/17 04:05 PT 14.9 Sec. (12.2-14.9) 12/15/17 04:05 INR 1.11 (0.87-1.13) 12/15/17 04:05 APTT 20.9 Sec. (24.2-36.6) L 12/15/17 04:05 POC ABG pH 7.369 (7.35-7.45) 12/16/17 03:33 POC ABG pCO2 47.7 (35-45) H 12/16/17 03:33 POC ABG pO2 88 (80-105) 12/16/17 03:33 POC ABG HCO3 27.5 12/16/17 03:33 POC ABG Total CO2 29 12/16/17 03:33 POC ABG O2 Sat 96 12/16/17 03:33 POC ABG Base Excess 2 12/16/17 03:33 VBG pH 7.472 (7.320-7.420) H 12/12/17 19:18 FiO2 90 % 12/16/17 03:33 Sodium 147 mmol/L (137-145) H 12/16/17 04:18 Potassium 4.4 mmol/L (3.6-5.0) 12/16/17 04:18 Chloride 107.4 mmol/L (98-107) H 12/16/17 04:18 Carbon Dioxide 25 mmol/L (22-30) 12/16/17 04:18 Anion Gap 19 mmol/L 12/16/17 04:18 BUN 28 mg/dL (9-20) H 12/16/17 04:18 Creatinine 0.8 mg/dL (0.8-1.5) 12/16/17 04:18 Estimated GFR > 60 ml/min 12/16/17 04:18 BUN/Creatinine Ratio 35 % 12/16/17 04:18 Glucose 240 mg/dL (75-100) H 12/16/17 04:18 POC Glucose 227 (70-105) H 12/16/17 05:08 Lactic Acid 2.00 mmol/L (0.7-2.0) 12/13/17 19:38 Calcium 8.3 mg/dL (8.4-10.2) L 12/16/17 04:18 Total Bilirubin 4.60 mg/dL (0.1-1.2) H 12/12/17 19:02 AST 93 units/L (5-40) H 12/12/17 19:02 ALT 112 units/L (7-56) H 12/12/17 19:02 Alkaline Phosphatase 80 units/L (35-129) 12/12/17 19:02 NT-Pro-B Natriuret Pep 409.9 pg/mL (0-450) 12/12/17 19:02 Total Protein 6.5 g/dL (6.3-8.2) 12/12/17 19:02 Albumin 2.5 g/dL (3.9-5) L 12/12/17 19:02 Albumin/Globulin Ratio 0.6 % 12/12/17 19:02 Amylase 20 units/L (27-131) L 12/13/17 13:47 Lipase 9 units/L (13-60) L 12/13/17 13:47 Urine Color Neeta (Yellow) 12/15/17 17:00 Urine Turbidity Hazy (Clear) 12/15/17 17:00 Urine pH 6.0 (5.0-7.0) 12/15/17 17:00 Ur Specific [place] 1.027 (1.003-1.030) 12/15/17 17:00 Urine Protein 30 mg/dl mg/dL (Negative) 12/15/17 17:00 Urine Glucose (UA) Neg mg/dL (Negative) 12/15/17 17:00 Urine Ketones Tr mg/dL (Negative) 12/15/17 17:00 Urine Blood Lg (Negative) 12/15/17 17:00 Urine Nitrite Neg (Negative) 12/15/17 17:00 Urine Bilirubin Neg (Negative) 12/15/17 17:00 Urine Ictotest Positive (Negative) 12/12/17 20:42 Urine Urobilinogen < 2.0 mg/dL (<2.0) 12/15/17 17:00 Ur Leukocyte Esterase Tr (Negative) 12/15/17 17:00 Urine WBC (Auto) 38.0 /HPF (0.0-6.0) H 12/15/17 17:00 Urine RBC (Auto) 65.0 /HPF (0.0-6.0) 12/15/17 17:00 U Epithel Cells (Auto) < 1.0 /HPF (0-13.0) 12/12/17 20:42 Urine Bacteria (Auto) 1+ /HPF (Negative) 12/15/17 17:00 Urine Mucus 1+ /HPF 12/12/17 20:42 Influenza A (Rapid) Negative (Negative) 12/12/17 22:00 Influenza B (Rapid) Negative (Negative) 12/12/17 22:00
[2017-12-16] MEDS ORDERED: DUONEB *Not for PRN Use IH ONE (07:37)
[2017-12-16] MEDS ORDERED: SIMPLE SYRUP FEEDTUBE PRN ×2 (08:39)
[2017-12-16] MEDS ORDERED: SODIUM BICARBONATE FEEDTUBE PRN (08:39)
[2017-12-16] MEDS ORDERED: PANCREAZE DR 10,500 UNIT FEEDTUBE PRN (08:39)
[2017-12-16] MEDS: VITAMIN B-1 100 MG in NACL 0.9% 50 ML IV SCH (09:23)
[2017-12-16] MEDS: PEPCID IV SCH ×2 (09:23→22:10)
[2017-12-16] MEDS: LEVAQUIN 750MG/150ML 750 MG/150 ML BAG IV SCH (09:24)
[2017-12-16] MEDS: SODIUM CHLORIDE FLUSH SYRINGE 10 ML IV SCH ×2 (10:17→22:10)
[2017-12-16] MEDS ORDERED: LASIX IV ONE (17:13)
--- NOTE | 2017-12-16 17:18 | Progress Note ---
Assessment and Plan Imp: 1. Haemophilus influenza pneumonia and bacteremia 2. Severe sepsis 3. ARDS 4. Acute respiratory failure, hypoxia Rec: 1. Cont. Zosyn/Levaquin; d/c Vanco 2. Stop IVFs; keep as dry as possible at his point; will give Lasix 40mg IV once and increase free water per FT to 200mL [id number]; repeat labs AM 3. Wean FiO2; keep heavily sedated and skip spontaneous awakening trials for now pending improvement in oxygenation 4. SCDs, GI PPx, TFs 5. Prognosis is guarded; no family present CCt 31 minutes Subjective Date of service: 12/16/17 Principal diagnosis: ARDS Interval history: On APRV 90% FiO2. Heavily sedated. Cannot provide history. BP good. Active Medications Acetaminophen (Tylenol) 650 mg PO Q6H PRN PRN Reason: Pain, Mild (1-3),temp 100.5or> Last Admin: 12/15/17 13:26 Dose: 650 mg Albuterol (Proventil) 2.5 mg IH Q4HRT PRN PRN Reason: Shortness Of Breath Last Admin: 12/13/17 03:01 Dose: 2.5 mg Albuterol/Ipratropium (Duoneb *Not For Prn Use*) 1 ampul IH Q6HRT [facility] [place] Last Admin: 12/16/17 16:50 Dose: 1 ampul Lipase/Protease/Amylase (Pancreaze Dr 10,500 Unit) 1 each FEEDTUBE PRN PRN PRN Reason: For Clogged Feeding Tube Dextrose (D50w (25gm) Syringe) 50 ml IV PRN PRN PRN Reason: Hypoglycemia Famotidine (Pepcid) 20 mg IV BID [facility] [place] Last Admin: 12/16/17 09:23 Dose: 20 mg Furosemide (Lasix) 40 mg IV ONCE ONE Stop: 12/16/17 17:14 Hydrophilic Ointment (Vaseline Lip Therapy) 1 applic TP Q2HR PRN PRN Reason: Dry Lips Levofloxacin/Dextrose (Levaquin 750mg/150ml) 750 mg in 150 mls @ 100 mls/hr IV Q24HR LEIF; Protocol Last Admin: 12/16/17 09:24 Dose: 100 mls/hr Fentanyl Citrate (Fentanyl Drip Premix) 2,000 mcg in 100 mls @ 5.058 mls/hr IV TITR LEIF; Protocol Last Admin: 12/16/17 17:14 Dose: 3 mcg/kg/hr, 15.173 mls/hr Midazolam HCl 100 mg/ Sodium (Chloride) 100 mls @ 2 mls/hr IV TITR LEIF; Protocol Last Admin: 12/15/17 21:27 Dose: 4 mg/hr, 4 mls/hr Piperacillin Sod/Tazobactam Sod (Zosyn/Ns 3.375gm/50ml) 3.375 gm in 50 mls @ 100 mls/hr IV Q6HR LEIF; Protocol Last Admin: 12/16/17 12:33 Dose: 100 mls/hr Thiamine HCl 100 mg/ Sodium (Chloride) 51 mls @ 100 mls/hr IV QDAY [facility] [place] Last Admin: 12/16/17 09:23 Dose: 100 mls/hr Insulin Human Lispro (Humalog) 0 unit SUB-Q Q4H LEIF; Protocol Last Admin: 12/16/17 14:22 Dose: 6 unit Multi-Ingred Cream/Lotion/Oil/Oint (Artificial Tears Ophth Oint) 1 applic OU Q4HR PRN PRN Reason: Dry Eye(s) Ondansetron HCl (Zofran) 4 mg IV Q8H PRN PRN Reason: Nausea And Vomiting Simple Syrup (Simple Syrup) 15 ml FEEDTUBE PRN PRN PRN Reason: Hypoglycemia Simple Syrup (Simple Syrup) 30 ml FEEDTUBE PRN PRN PRN Reason: Hypoglycemia Sodium Bicarbonate (Sodium Bicarbonate) 325 mg FEEDTUBE PRN PRN PRN Reason: For Clogged Feeding Tube Sodium Chloride (Sodium Chloride Flush Syringe 10 Ml) 10 ml IV BID [facility] [place] Last Admin: 12/16/17 10:17 Dose: 10 ml Sodium Chloride (Sodium Chloride Flush Syringe 10 Ml) 10 ml IV PRN PRN PRN Reason: LINE FLUSH Objective Vital Signs - 12hr 12/16/17 12/16/17 12/16/17 06:00 07:00 08:00 Temperature 98.0 F Pulse Rate 86 86 85 Pulse Rate [ Anterior Bilateral Throughout] Respiratory 13 12 12 Rate Respiratory Rate [Anterior Bilateral Throughout] Blood Pressure 140/87 147/87 142/87 O2 Sat by Pulse 99 98 97 Oximetry 12/16/17 12/16/17 12/16/17 09:00 09:06 09:22 Temperature Pulse Rate 92 H Pulse Rate [ 89 99 H Anterior Bilateral Throughout] Respiratory 14 Rate Respiratory 20 12 Rate [Anterior Bilateral Throughout] Blood Pressure 140/79 O2 Sat by Pulse 98 Oximetry 12/16/17 12/16/17 12/16/17 10:00 11:00 12:00 Temperature 97.9 F Pulse Rate 85 84 84 Pulse Rate [ Anterior Bilateral Throughout] Respiratory 14 12 13 Rate Respiratory Rate [Anterior Bilateral Throughout] Blood Pressure 152/87 151/89 161/96 O2 Sat by Pulse 97 97 96 Oximetry 12/16/17 12/16/17 12/16/17 13:00 13:10 14:00 Temperature Pulse Rate 86 86 82 Pulse Rate [ Anterior Bilateral Throughout] Respiratory 17 19 20 Rate Respiratory Rate [Anterior Bilateral Throughout] Blood Pressure 143/80 143/80 146/88 O2 Sat by Pulse 96 98 98 Oximetry 12/16/17 12/16/17 12/16/17 15:00 16:00 17:00 Temperature 98.1 F Pulse Rate 84 82 87 Pulse Rate [ Anterior Bilateral Throughout] Respiratory 13 13 12 Rate Respiratory Rate [Anterior Bilateral Throughout] Blood Pressure 153/99 142/94 143/93 O2 Sat by Pulse 96 97 98 Oximetry Constitutional: other (intubated, sedated) Eyes: non-icteric ENT: oropharynx moist Neck: supple Effort: mildly labored Ascultation: Bilateral: other (coarse BS bilaterally) Cardiovascular: regular rate and rhythm, other (tachycardic) Gastrointestinal: normoactive bowel sounds, soft, non-tender, non-distended, other (obese) Integumentary: normal Extremities: no cyanosis, no edema, pink and warm Neurologic: unable to assess (due to sedation) Psychiatric: other (not able to assess) CBC and BMP: 12/16/17 04:18 12/16/17 04:18 ABG, PT/INR, D-dimer: ABG POC ABG pH 7.369 (7.35-7.45) 12/16/17 03:33 POC ABG pCO2 47.7 (35-45) H 12/16/17 03:33 POC ABG pO2 88 (80-105) 12/16/17 03:33 POC ABG HCO3 27.5 12/16/17 03:33 POC ABG Total CO2 29 12/16/17 03:33 POC ABG O2 Sat 96 12/16/17 03:33 PT/INR, D-dimer PT 14.9 Sec. (12.2-14.9) 12/15/17 04:05 INR 1.11 (0.87-1.13) 12/15/17 04:05 Abnormal lab findings: Abnormal Labs 12/12/17 12/12/17 12/12/17 18:57 19:02 19:02 WBC RBC Hgb Hct MCV 96 H MCH 34 H MCHC 35 H Plt Count 46 L Seg Neuts % (Manual) 77.0 H Lymphocytes % (Manual) 13.0 L Monocytes % (Manual) Nucleated RBC % Lymphocytes # (Manual) 0.9 L Monocytes # (Manual) APTT POC ABG pH POC ABG pCO2 POC ABG pO2 VBG pH Sodium Chloride Carbon Dioxide BUN Glucose POC Glucose 321 H Lactic Acid 4.00 H* Calcium Total Bilirubin AST ALT Albumin Amylase Lipase Urine WBC (Auto) 12/12/17 12/12/17 12/12/17 19:02 19:18 20:55 WBC RBC Hgb Hct MCV MCH MCHC Plt Count Seg Neuts % (Manual) Lymphocytes % (Manual) Monocytes % (Manual) Nucleated RBC % Lymphocytes # (Manual) Monocytes # (Manual) APTT POC ABG pH POC ABG pCO2 POC ABG pO2 VBG pH 7.472 H Sodium 124 L Chloride 80.0 L Carbon Dioxide 20 L BUN Glucose 382 H POC Glucose 283 H Lactic Acid Calcium 8.1 L Total Bilirubin 4.60 H AST 93 H ALT 112 H Albumin 2.5 L Amylase Lipase Urine WBC (Auto) 12/12/17 12/13/17 12/13/17 21:41 00:45 01:29 WBC RBC Hgb Hct MCV MCH MCHC Plt Count Seg Neuts % (Manual) Lymphocytes % (Manual) Monocytes % (Manual) Nucleated RBC % Lymphocytes # (Manual) Monocytes # (Manual) APTT POC ABG pH POC ABG pCO2 POC ABG pO2 VBG pH Sodium Chloride Carbon Dioxide BUN Glucose POC Glucose Lactic Acid 4.20 H* 2.70 H* 3.30 H* Calcium Total Bilirubin AST ALT Albumin Amylase Lipase Urine WBC (Auto) 12/13/17 12/13/17 12/13/17 02:19 03:44 05:58 WBC RBC Hgb Hct MCV 97 H MCH 34 H MCHC 35 H Plt Count 41 L Seg Neuts % (Manual) Lymphocytes % (Manual) 8.0 L Monocytes % (Manual) 8.0 H Nucleated RBC % Lymphocytes # (Manual) 0.6 L Monocytes # (Manual) APTT POC ABG pH 7.334 L POC ABG pCO2 POC ABG pO2 43 L VBG pH Sodium Chloride Carbon Dioxide BUN Glucose POC Glucose Lactic Acid 2.60 H* Calcium Total Bilirubin AST ALT Albumin Amylase Lipase Urine WBC (Auto) 12/13/17 12/13/17 12/13/17 05:58 05:58 05:58 WBC RBC Hgb Hct MCV MCH MCHC Plt Count Seg Neuts % (Manual) Lymphocytes % (Manual) Monocytes % (Manual) Nucleated RBC % Lymphocytes # (Manual) Monocytes # (Manual) APTT POC ABG pH POC ABG pCO2 POC ABG pO2 VBG pH Sodium 132 L D Chloride 90.0 L Carbon Dioxide 20 L BUN Glucose 346 H POC Glucose 298 H Lactic Acid 4.50 H* Calcium 8.2 L Total Bilirubin AST ALT Albumin Amylase Lipase Urine WBC (Auto) 12/13/17 12/13/17 12/13/17 06:27 09:42 11:47 WBC RBC Hgb Hct MCV MCH MCHC Plt Count Seg Neuts % (Manual) Lymphocytes % (Manual) Monocytes % (Manual) Nucleated RBC % Lymphocytes # (Manual) Monocytes # (Manual) APTT POC ABG pH 7.267 L 7.298 L POC ABG pCO2 50.4 H 51.3 H POC ABG pO2 47 L 43 L VBG pH Sodium Chloride Carbon Dioxide BUN Glucose POC Glucose 376 H Lactic Acid Calcium Total Bilirubin AST ALT Albumin Amylase Lipase Urine WBC (Auto) 12/13/17 12/13/17 12/13/17 12:03 13:47 13:47 WBC RBC Hgb Hct MCV MCH MCHC Plt Count Seg Neuts % (Manual) Lymphocytes % (Manual) Monocytes % (Manual) Nucleated RBC % Lymphocytes # (Manual) Monocytes # (Manual) APTT POC ABG pH 7.264 L POC ABG pCO2 54.9 H POC ABG pO2 55 L VBG pH Sodium Chloride Carbon Dioxide BUN Glucose POC Glucose Lactic Acid 2.80 H* Calcium Total Bilirubin AST ALT Albumin Amylase 20 L Lipase 9 L Urine WBC (Auto) 12/13/17 12/13/17 12/13/17 15:36 17:39 21:47 WBC RBC Hgb Hct MCV MCH MCHC Plt Count Seg Neuts % (Manual) Lymphocytes % (Manual) Monocytes % (Manual) Nucleated RBC % Lymphocytes # (Manual) Monocytes # (Manual) APTT POC ABG pH 7.229 L 7.225 L POC ABG pCO2 60.9 H 66.3 H POC ABG pO2 42 L 41 L VBG pH Sodium Chloride Carbon Dioxide BUN Glucose POC Glucose 289 H Lactic Acid Calcium Total Bilirubin AST ALT Albumin Amylase Lipase Urine WBC (Auto) 12/13/17 12/14/17 12/14/17 22:19 02:03 05:16 WBC RBC Hgb Hct MCV MCH MCHC Plt Count Seg Neuts % (Manual) Lymphocytes % (Manual) Monocytes % (Manual) Nucleated RBC % Lymphocytes # (Manual) Monocytes # (Manual) APTT POC ABG pH 7.247 L POC ABG pCO2 61.2 H POC ABG pO2 53 L VBG pH Sodium Chloride Carbon Dioxide BUN Glucose POC Glucose 274 H 295 H Lactic Acid Calcium Total Bilirubin AST ALT Albumin Amylase Lipase Urine WBC (Auto) 12/14/17 12/14/17 12/14/17 05:32 12:04 16:22 WBC RBC Hgb Hct MCV MCH MCHC Plt Count Seg Neuts % (Manual) Lymphocytes % (Manual) Monocytes % (Manual) Nucleated RBC % Lymphocytes # (Manual) Monocytes # (Manual) APTT POC ABG pH POC ABG pCO2 POC ABG pO2 VBG pH Sodium Chloride Carbon Dioxide BUN Glucose POC Glucose 230 H 241 H 231 H Lactic Acid Calcium Total Bilirubin AST ALT Albumin Amylase Lipase Urine WBC (Auto) 12/14/17 12/15/17 12/15/17 21:29 02:29 03:25 WBC RBC Hgb Hct MCV MCH MCHC Plt Count Seg Neuts % (Manual) Lymphocytes % (Manual) Monocytes % (Manual) Nucleated RBC % Lymphocytes # (Manual) Monocytes # (Manual) APTT POC ABG pH 7.330 L POC ABG pCO2 55.3 H POC ABG pO2 59 L VBG pH Sodium Chloride Carbon Dioxide BUN Glucose POC Glucose 258 H 246 H Lactic Acid Calcium Total Bilirubin AST ALT Albumin Amylase Lipase Urine WBC (Auto) 12/15/17 12/15/17 12/15/17 04:05 04:05 04:05 WBC 15.0 H RBC 3.40 L Hgb 11.3 L D Hct 33.8 L D MCV 100 H MCH 33 H MCHC Plt Count 48 L Seg Neuts % (Manual) Lymphocytes % (Manual) 3.0 L Monocytes % (Manual) Nucleated RBC % 2.0 H Lymphocytes # (Manual) 0.5 L Monocytes # (Manual) 0.9 H APTT 20.9 L POC ABG pH POC ABG pCO2 POC ABG pO2 VBG pH Sodium Chloride Carbon Dioxide BUN 27 H Glucose 258 H POC Glucose Lactic Acid Calcium 8.1 L Total Bilirubin AST ALT Albumin Amylase Lipase Urine WBC (Auto) 12/15/17 12/15/17 12/15/17 05:32 11:17 14:59 WBC RBC Hgb Hct MCV MCH MCHC Plt Count Seg Neuts % (Manual) Lymphocytes % (Manual) Monocytes % (Manual) Nucleated RBC % Lymphocytes # (Manual) Monocytes # (Manual) APTT POC ABG pH POC ABG pCO2 POC ABG pO2 VBG pH Sodium Chloride Carbon Dioxide BUN Glucose POC Glucose 247 H 268 H 233 H Lactic Acid Calcium Total Bilirubin AST ALT Albumin Amylase Lipase Urine WBC (Auto) 12/15/17 12/15/17 12/15/17 17:00 18:59 21:37 WBC RBC Hgb Hct MCV MCH MCHC Plt Count Seg Neuts % (Manual) Lymphocytes % (Manual) Monocytes % (Manual) Nucleated RBC % Lymphocytes # (Manual) Monocytes # (Manual) APTT POC ABG pH POC ABG pCO2 POC ABG pO2 VBG pH Sodium Chloride Carbon Dioxide BUN Glucose POC Glucose 195 H 208 H Lactic Acid Calcium Total Bilirubin AST ALT Albumin Amylase Lipase Urine WBC (Auto) 38.0 H 12/16/17 12/16/17 12/16/17 03:17 03:33 04:18 WBC 16.4 H RBC 3.50 L Hgb 11.3 L Hct 35.4 L MCV 101 H MCH MCHC Plt Count 54 L Seg Neuts % (Manual) Lymphocytes % (Manual) Monocytes % (Manual) Nucleated RBC % Lymphocytes # (Manual) Monocytes # (Manual) APTT POC ABG pH POC ABG pCO2 47.7 H POC ABG pO2 VBG pH Sodium Chloride Carbon Dioxide BUN Glucose POC Glucose 227 H Lactic Acid Calcium Total Bilirubin AST ALT Albumin Amylase Lipase Urine WBC (Auto) 12/16/17 12/16/17 12/16/17 04:18 05:08 10:01 WBC RBC Hgb Hct MCV MCH MCHC Plt Count Seg Neuts % (Manual) Lymphocytes % (Manual) Monocytes % (Manual) Nucleated RBC % Lymphocytes # (Manual) Monocytes # (Manual) APTT POC ABG pH POC ABG pCO2 POC ABG pO2 VBG pH Sodium 147 H Chloride 107.4 H Carbon Dioxide BUN 28 H Glucose 240 H POC Glucose 227 H 190 H Lactic Acid Calcium 8.3 L Total Bilirubin AST ALT Albumin Amylase Lipase Urine WBC (Auto) 12/16/17 14:15 WBC RBC Hgb Hct MCV MCH MCHC Plt Count Seg Neuts % (Manual) Lymphocytes % (Manual) Monocytes % (Manual) Nucleated RBC % Lymphocytes # (Manual) Monocytes # (Manual) APTT POC ABG pH POC ABG pCO2 POC ABG pO2 VBG pH Sodium Chloride Carbon Dioxide BUN Glucose POC Glucose 279 H Lactic Acid Calcium Total Bilirubin AST ALT Albumin Amylase Lipase Urine WBC (Auto) Chest x-ray: report reviewed, image reviewed (bilateral infiltrates)
[2017-12-16] MEDS: MIDAZOLAM 100 MG in NACL 0.9% 80 ML IV SCH (23:55)
[2017-12-17] MEDS: ZOSYN/NS 3.375GM/50ML 3.375 GM/50 ML BAG IV SCH ×2 (00:25→05:36)
[2017-12-17] MEDS: DUONEB *Not for PRN Use IH SCH ×4 (02:21→21:01)
[2017-12-17] MEDS: HumaLOG SUB-Q SCH ×6 (02:42→18:26)
--- NOTE | 2017-12-17 03:13 | XRay Report ---
FINAL REPORT EXAM: XR CHEST 1V AP HISTORY: follow up respiratory failure TECHNIQUE: A portable upright view the chest was obtained and compared to the study 12/16/2017. FINDINGS: The appearance of the chest has improved considerably since the previous study. There is resolving airspace disease noted bilaterally. There is no residual pneumomediastinum. Heart size is normal. The ET tube is in good position above the valentín. The NG tube is noted in the stomach. Pleural fluid is not seen. The surrounding bones and soft tissues otherwise are unchanged. IMPRESSION: Improved appearance of the chest with resolving airspace disease in both lungs. No residual pneumomediastinum.
[2017-12-17 04:50] LABS: Hematocrit 35.3 % (35.5-45.6); Hemoglobin 11.4 gm/dl (11.8-15.2); Mean Corpuscular HGB Conc 32 % (32-34); Mean Corpuscular Hemoglobin 33 pg (28-32); Mean Corpuscular Volume 101 fl (84-94)
[2017-12-17 05:00] LABS: Platelet Count 65 K/mm3 (140-440)
[2017-12-17 05:24] LABS: BUN/Creatinine Ratio 31; Blood Urea Nitrogen 28 mg/dL (9-20); Calcium 8.9 mg/dL (8.4-10.2); Hemolysis Index 3
[2017-12-17] MEDS: fentaNYL DRIP Premix 2,000 MCG/100 ML BAG IV SCH ×4 (07:28→22:16)
[2017-12-17] MEDS ORDERED: PANCREAZE DR 10,500 UNIT FEEDTUBE PRN (08:31)
[2017-12-17] MEDS ORDERED: SIMPLE SYRUP FEEDTUBE PRN ×2 (08:31)
[2017-12-17] MEDS ORDERED: SODIUM BICARBONATE FEEDTUBE PRN (08:31)
[2017-12-17] MEDS ORDERED: NACL 0.45% 1000 ML 1,000 ML IV SCH (09:00)
[2017-12-17] MEDS ORDERED: D5/0.45NS 1,000 ML IV SCH (09:00)
[2017-12-17] MEDS: PEPCID IV SCH (09:31)
[2017-12-17] MEDS: VITAMIN B-1 100 MG in NACL 0.9% 50 ML IV SCH (09:31)
[2017-12-17] MEDS: LEVAQUIN 750MG/150ML 750 MG/150 ML BAG IV SCH (09:32)
[2017-12-17] MEDS: SODIUM CHLORIDE FLUSH SYRINGE 10 ML IV SCH ×2 (09:33→21:36)
--- NOTE | 2017-12-17 12:10 | Progress Note ---
Assessment and Plan Acute hypoxic respiratory failure - suspected due to aspiration pneumonia: on iv clindamycin/levaquin Suspected ARDS: - Pulmonology is following Sepsis with Aspiration pneumonia, poa: - Treated with IV antibiotics, repeat cx Alcohol abuse: sedated, cont iv thiamine Hypotension resolved with ivfs and iv steroids Thrombocytopenia, - severe most likely due to sepsis: hold heparin Hypernatremia - place on maintenance fluid with hypotonic fluid, cont free water with TF, monitor BMP DM type 2- cont long acting and SSI DVT prophylaxis: scd only, due to thrombocytopenia Brief History: Patient is a 47 yo man with a history of tobacco dependency, alcohol abuse, dm type 2, hypertension and asthma who presented to [facility] with SOB and found to be severely hypoxic, failed bipap and was intubated. There is report of n/v during and after intubation. Hospitalist Physical GEN: Ill-appearing HEENT: NCAT, pupils react, ET tube, NG tube in place NECK: supple, CVS/HEART:regular tachy NORMAL S1S2, pulses present bilaterally CHEST/LUNGS: Symmetrical chest expansion, good air entry bilaterally GI/Abdomen: soft, distended, good bowel sounds, no guarding or rebound /Bladder: condom cath in place EXT/Skin: Dependent edema MSK: sedated Neuro: sedated Psych: sedated Subjective Date of service: 12/17/17 Principal diagnosis: ARDS Interval history: Pt seen and examined Remained intubated and sedated Tolerating tube feeding cont to spike fever Objective - Constitutional Vitals: Vital Signs - 12hr 12/17/17 12/17/17 12/17/17 01:00 01:20 02:00 Temperature Pulse Rate 87 86 Pulse Rate [ Anterior Bilateral Throughout] Pulse Rate [ 86 From Monitor] Respiratory 12 18 12 Rate Respiratory Rate [Anterior Bilateral Throughout] Blood Pressure 137/78 141/82 O2 Sat by Pulse 97 98 97 Oximetry 12/17/17 12/17/17 12/17/17 02:11 02:22 03:00 Temperature Pulse Rate 105 H Pulse Rate [ 121 H 114 H Anterior Bilateral Throughout] Pulse Rate [ From Monitor] Respiratory 18 Rate Respiratory 14 13 Rate [Anterior Bilateral Throughout] Blood Pressure 139/84 O2 Sat by Pulse 98 Oximetry 12/17/17 12/17/17 12/17/17 03:05 04:00 04:15 Temperature 98.1 F Pulse Rate 97 H 99 H Pulse Rate [ Anterior Bilateral Throughout] Pulse Rate [ 86 From Monitor] Respiratory 18 15 19 Rate Respiratory Rate [Anterior Bilateral Throughout] Blood Pressure 122/83 122/83 O2 Sat by Pulse 98 99 99 Oximetry 12/17/17 12/17/17 12/17/17 05:00 05:25 06:00 Temperature Pulse Rate 100 H 97 H Pulse Rate [ Anterior Bilateral Throughout] Pulse Rate [ From Monitor] Respiratory 16 13 16 Rate Respiratory Rate [Anterior Bilateral Throughout] Blood Pressure 132/82 131/78 O2 Sat by Pulse 97 98 98 Oximetry 12/17/17 12/17/17 12/17/17 07:00 07:55 08:00 Temperature 100.7 F H Pulse Rate 102 H 97 H 103 H Pulse Rate [ Anterior Bilateral Throughout] Pulse Rate [ From Monitor] Respiratory 13 13 Rate Respiratory Rate [Anterior Bilateral Throughout] Blood Pressure 133/81 131/78 122/81 O2 Sat by Pulse 96 98 97 Oximetry 12/17/17 12/17/17 08:35 08:58 Temperature Pulse Rate Pulse Rate [ 103 H 102 H Anterior Bilateral Throughout] Pulse Rate [ From Monitor] Respiratory Rate Respiratory 16 16 Rate [Anterior Bilateral Throughout] Blood Pressure O2 Sat by Pulse Oximetry - Labs CBC & Chem 7: 12/17/17 04:28 12/17/17 04:28 Labs: Abnormal lab results 12/16/17 12/16/17 12/16/17 Range/Units 14:15 17:51 21:14 WBC (4.5-11.0) K/mm3 RBC (3.65-5.03) M/mm3 Hgb (11.8-15.2) gm/dl Hct (35.5-45.6) % MCV (84-94) fl MCH (28-32) pg Plt Count (140-440) K/mm3 POC ABG pCO2 (35-45) POC ABG pO2 (80-105) Sodium (137-145) mmol/L Chloride (98-107) mmol/L Carbon Dioxide (22-30) mmol/L BUN (9-20) mg/dL Glucose (75-100) mg/dL POC Glucose 279 H 272 H 260 H (70-105) 12/17/17 12/17/17 12/17/17 Range/Units 02:41 04:28 04:28 WBC 19.1 H (4.5-11.0) K/mm3 RBC 3.50 L (3.65-5.03) M/mm3 Hgb 11.4 L (11.8-15.2) gm/dl Hct 35.3 L (35.5-45.6) % MCV 101 H (84-94) fl MCH 33 H (28-32) pg Plt Count 65 L (140-440) K/mm3 POC ABG pCO2 (35-45) POC ABG pO2 (80-105) Sodium 153 H (137-145) mmol/L Chloride 111.2 H (98-107) mmol/L Carbon Dioxide 31 H (22-30) mmol/L BUN 28 H (9-20) mg/dL Glucose 248 H (75-100) mg/dL POC Glucose 300 H (70-105) 12/17/17 12/17/17 Range/Units 05:15 05:38 WBC (4.5-11.0) K/mm3 RBC (3.65-5.03) M/mm3 Hgb (11.8-15.2) gm/dl Hct (35.5-45.6) % MCV (84-94) fl MCH (28-32) pg Plt Count (140-440) K/mm3 POC ABG pCO2 50.3 H (35-45) POC ABG pO2 120 H (80-105) Sodium (137-145) mmol/L Chloride (98-107) mmol/L Carbon Dioxide (22-30) mmol/L BUN (9-20) mg/dL Glucose (75-100) mg/dL POC Glucose 231 H (70-105)
[2017-12-17] MEDS: LANTUS SUB-Q SCH (12:48)
[2017-12-17] MEDS: CLEOCIN 600 MG/50 mL 600 MG/50 ML BAG IV SCH ×2 (14:59→21:33)
--- NOTE | 2017-12-17 15:09 | Progress Note ---
Assessment and Plan Imp: 1. Haemophilus influenza pneumonia and bacteremia 2. Severe sepsis 3. ARDS 4. Acute respiratory failure, hypoxia Rec: 1. Cont. Levaquin versus H.flu; change to [place] to cover aspiration since there was vomiting around the time of intubation 2. Stop IVFs; keep as dry as possible at his point; increase free water to 300mL and monitor sodium 3. Wean FiO2; keep heavily sedated and skip spontaneous awakening trials for now pending improvement in oxygenation; tried on PRVC but failed 12/17/17 , so will need to slowly decrease the FiO2 and P high on APRV 4. SCDs, GI PPx, TFs 5. Prognosis is guarded; plan of care reviewed with , she understands/agrees CCt 31 minutes Subjective Date of service: 12/17/17 Principal diagnosis: ARDS Interval history: On APRV 60% FiO2. Heavily sedated. Cannot provide history. BP good. Active Medications Acetaminophen (Tylenol) 650 mg PO Q6H PRN PRN Reason: Pain, Mild (1-3),temp 100.5or> Last Admin: 12/15/17 13:26 Dose: 650 mg Albuterol (Proventil) 2.5 mg IH Q4HRT PRN PRN Reason: Shortness Of Breath Last Admin: 12/13/17 03:01 Dose: 2.5 mg Albuterol/Ipratropium (Duoneb *Not For Prn Use*) 1 ampul IH Q6HRT [facility] Last Admin: 12/17/17 13:24 Dose: 1 ampul Lipase/Protease/Amylase (Pancreaze Dr 10,500 Unit) 1 each FEEDTUBE PRN PRN PRN Reason: For Clogged Feeding Tube Dextrose (D50w (25gm) Syringe) 50 ml IV PRN PRN PRN Reason: Hypoglycemia Famotidine (Pepcid) 20 mg PO BID [facility] Hydrophilic Ointment (Vaseline Lip Therapy) 1 applic TP Q2HR PRN PRN Reason: Dry Lips Levofloxacin/Dextrose (Levaquin 750mg/150ml) 750 mg in 150 mls @ 100 mls/hr IV Q24HR [facility]; Protocol Last Admin: 12/17/17 09:32 Dose: 100 mls/hr Fentanyl Citrate (Fentanyl Drip Premix) 2,000 mcg in 100 mls @ 5.058 mls/hr IV TITR [facility]; Protocol Last Titration: 12/17/17 14:10 Dose: 4 mcg/kg/hr, 20.23 mls/hr Midazolam HCl 100 mg/ Sodium (Chloride) 100 mls @ 2 mls/hr IV TITR [facility]; Protocol Last Admin: 12/16/17 23:55 Dose: 4 mg/hr, 4 mls/hr Clindamycin HCl (Cleocin 600 Mg/50 Ml) 600 mg in 50 mls @ 100 mls/hr IV Q8HR [facility] Stop: 12/20/17 13:59 Last Admin: 12/17/17 14:59 Dose: 100 mls/hr Insulin Glargine (Lantus) 10 units SUB-Q DAILY [facility] Last Admin: 12/17/17 12:48 Dose: 10 units Insulin Human Lispro (Humalog) 0 unit SUB-Q Q4H [facility]; Protocol Last Admin: 12/17/17 14:57 Dose: 4 unit Multi-Ingred Cream/Lotion/Oil/Oint (Artificial Tears Ophth Oint) 1 applic OU Q4HR PRN PRN Reason: Dry Eye(s) Ondansetron HCl (Zofran) 4 mg IV Q8H PRN PRN Reason: Nausea And Vomiting Simple Syrup (Simple Syrup) 15 ml FEEDTUBE PRN PRN PRN Reason: Hypoglycemia Simple Syrup (Simple Syrup) 30 ml FEEDTUBE PRN PRN PRN Reason: Hypoglycemia Sodium Bicarbonate (Sodium Bicarbonate) 325 mg FEEDTUBE PRN PRN PRN Reason: For Clogged Feeding Tube Sodium Chloride (Sodium Chloride Flush Syringe 10 Ml) 10 ml IV BID [facility] Last Admin: 12/17/17 09:33 Dose: 10 ml Sodium Chloride (Sodium Chloride Flush Syringe 10 Ml) 10 ml IV PRN PRN PRN Reason: LINE FLUSH Thiamine HCl (Vitamin B-1) 100 mg PO QDAY [facility] Objective Vital Signs - 12hr 12/17/17 12/17/17 12/17/17 04:00 04:15 05:00 Temperature 98.1 F Pulse Rate 97 H 99 H 100 H Pulse Rate [ Anterior Bilateral Throughout] Respiratory 15 19 16 Rate Respiratory Rate [Anterior Bilateral Throughout] Blood Pressure 122/83 122/83 132/82 O2 Sat by Pulse 99 99 97 Oximetry 12/17/17 12/17/17 12/17/17 05:25 06:00 07:00 Temperature Pulse Rate 97 H 102 H Pulse Rate [ Anterior Bilateral Throughout] Respiratory 13 16 13 Rate Respiratory Rate [Anterior Bilateral Throughout] Blood Pressure 131/78 133/81 O2 Sat by Pulse 98 98 96 Oximetry 12/17/17 12/17/17 12/17/17 07:55 08:00 08:35 Temperature 100.7 F H Pulse Rate 97 H 103 H Pulse Rate [ 103 H Anterior Bilateral Throughout] Respiratory 13 Rate Respiratory 16 Rate [Anterior Bilateral Throughout] Blood Pressure 131/78 122/81 O2 Sat by Pulse 98 97 Oximetry 12/17/17 12/17/17 12/17/17 08:58 09:00 10:00 Temperature Pulse Rate 119 H 108 H Pulse Rate [ 102 H Anterior Bilateral Throughout] Respiratory 15 13 Rate Respiratory 16 Rate [Anterior Bilateral Throughout] Blood Pressure 128/84 134/75 O2 Sat by Pulse 99 98 Oximetry 12/17/17 12/17/17 12/17/17 11:00 12:00 12:13 Temperature 100.6 F H Pulse Rate 102 H 114 H 111 H Pulse Rate [ Anterior Bilateral Throughout] Respiratory 12 29 H Rate Respiratory Rate [Anterior Bilateral Throughout] Blood Pressure 130/78 132/87 138/85 O2 Sat by Pulse 96 98 98 Oximetry 12/17/17 12/17/17 12/17/17 13:00 13:25 13:34 Temperature Pulse Rate 111 H Pulse Rate [ 100 H 102 H Anterior Bilateral Throughout] Respiratory 18 Rate Respiratory 16 16 Rate [Anterior Bilateral Throughout] Blood Pressure 138/85 O2 Sat by Pulse 98 Oximetry Constitutional: other (intubated, sedated) Eyes: non-icteric ENT: oropharynx moist Neck: supple Effort: normal Ascultation: Bilateral: other (coarse BS bilaterally) Cardiovascular: regular rate and rhythm, other (tachycardic) Gastrointestinal: normoactive bowel sounds, soft, non-tender, non-distended, other (obese) Integumentary: normal Extremities: no cyanosis, no edema, pink and warm Neurologic: unable to assess (due to sedation) Psychiatric: other (not able to assess) CBC and BMP: 12/17/17 04:28 12/17/17 04:28 ABG, PT/INR, D-dimer: ABG POC ABG pH 7.449 (7.35-7.45) 12/17/17 05:15 POC ABG pCO2 50.3 (35-45) H 12/17/17 05:15 POC ABG pO2 120 (80-105) H 12/17/17 05:15 POC ABG HCO3 34.9 12/17/17 05:15 POC ABG Total CO2 36 12/17/17 05:15 POC ABG O2 Sat 99 12/17/17 05:15 PT/INR, D-dimer PT 14.9 Sec. (12.2-14.9) 12/15/17 04:05 INR 1.11 (0.87-1.13) 12/15/17 04:05 Abnormal lab findings: Abnormal Labs 12/12/17 12/12/17 12/12/17 18:57 19:02 19:02 WBC RBC Hgb Hct MCV 96 H MCH 34 H MCHC 35 H Plt Count 46 L Seg Neuts % (Manual) 77.0 H Lymphocytes % (Manual) 13.0 L Monocytes % (Manual) Nucleated RBC % Lymphocytes # (Manual) 0.9 L Monocytes # (Manual) APTT POC ABG pH POC ABG pCO2 POC ABG pO2 VBG pH Sodium Chloride Carbon Dioxide BUN Glucose POC Glucose 321 H Lactic Acid 4.00 H* Calcium Total Bilirubin AST ALT Albumin Amylase Lipase Urine WBC (Auto) 12/12/17 12/12/17 12/12/17 19:02 19:18 20:55 WBC RBC Hgb Hct MCV MCH MCHC Plt Count Seg Neuts % (Manual) Lymphocytes % (Manual) Monocytes % (Manual) Nucleated RBC % Lymphocytes # (Manual) Monocytes # (Manual) APTT POC ABG pH POC ABG pCO2 POC ABG pO2 VBG pH 7.472 H Sodium 124 L Chloride 80.0 L Carbon Dioxide 20 L BUN Glucose 382 H POC Glucose 283 H Lactic Acid Calcium 8.1 L Total Bilirubin 4.60 H AST 93 H ALT 112 H Albumin 2.5 L Amylase Lipase Urine WBC (Auto) 12/12/17 12/13/17 12/13/17 21:41 00:45 01:29 WBC RBC Hgb Hct MCV MCH MCHC Plt Count Seg Neuts % (Manual) Lymphocytes % (Manual) Monocytes % (Manual) Nucleated RBC % Lymphocytes # (Manual) Monocytes # (Manual) APTT POC ABG pH POC ABG pCO2 POC ABG pO2 VBG pH Sodium Chloride Carbon Dioxide BUN Glucose POC Glucose Lactic Acid 4.20 H* 2.70 H* 3.30 H* Calcium Total Bilirubin AST ALT Albumin Amylase Lipase Urine WBC (Auto) 12/13/17 12/13/17 12/13/17 02:19 03:44 05:58 WBC RBC Hgb Hct MCV 97 H MCH 34 H MCHC 35 H Plt Count 41 L Seg Neuts % (Manual) Lymphocytes % (Manual) 8.0 L Monocytes % (Manual) 8.0 H Nucleated RBC % Lymphocytes # (Manual) 0.6 L Monocytes # (Manual) APTT POC ABG pH 7.334 L POC ABG pCO2 POC ABG pO2 43 L VBG pH Sodium Chloride Carbon Dioxide BUN Glucose POC Glucose Lactic Acid 2.60 H* Calcium Total Bilirubin AST ALT Albumin Amylase Lipase Urine WBC (Auto) 12/13/17 12/13/17 12/13/17 05:58 05:58 05:58 WBC RBC Hgb Hct MCV MCH MCHC Plt Count Seg Neuts % (Manual) Lymphocytes % (Manual) Monocytes % (Manual) Nucleated RBC % Lymphocytes # (Manual) Monocytes # (Manual) APTT POC ABG pH POC ABG pCO2 POC ABG pO2 VBG pH Sodium 132 L D Chloride 90.0 L Carbon Dioxide 20 L BUN Glucose 346 H POC Glucose 298 H Lactic Acid 4.50 H* Calcium 8.2 L Total Bilirubin AST ALT Albumin Amylase Lipase Urine WBC (Auto) 12/13/17 12/13/17 12/13/17 06:27 09:42 11:47 WBC RBC Hgb Hct MCV MCH MCHC Plt Count Seg Neuts % (Manual) Lymphocytes % (Manual) Monocytes % (Manual) Nucleated RBC % Lymphocytes # (Manual) Monocytes # (Manual) APTT POC ABG pH 7.267 L 7.298 L POC ABG pCO2 50.4 H 51.3 H POC ABG pO2 47 L 43 L VBG pH Sodium Chloride Carbon Dioxide BUN Glucose POC Glucose 376 H Lactic Acid Calcium Total Bilirubin AST ALT Albumin Amylase Lipase Urine WBC (Auto) 12/13/17 12/13/17 12/13/17 12:03 13:47 13:47 WBC RBC Hgb Hct MCV MCH MCHC Plt Count Seg Neuts % (Manual) Lymphocytes % (Manual) Monocytes % (Manual) Nucleated RBC % Lymphocytes # (Manual) Monocytes # (Manual) APTT POC ABG pH 7.264 L POC ABG pCO2 54.9 H POC ABG pO2 55 L VBG pH Sodium Chloride Carbon Dioxide BUN Glucose POC Glucose Lactic Acid 2.80 H* Calcium Total Bilirubin AST ALT Albumin Amylase 20 L Lipase 9 L Urine WBC (Auto) 12/13/17 12/13/17 12/13/17 15:36 17:39 21:47 WBC RBC Hgb Hct MCV MCH MCHC Plt Count Seg Neuts % (Manual) Lymphocytes % (Manual) Monocytes % (Manual) Nucleated RBC % Lymphocytes # (Manual) Monocytes # (Manual) APTT POC ABG pH 7.229 L 7.225 L POC ABG pCO2 60.9 H 66.3 H POC ABG pO2 42 L 41 L VBG pH Sodium Chloride Carbon Dioxide BUN Glucose POC Glucose 289 H Lactic Acid Calcium Total Bilirubin AST ALT Albumin Amylase Lipase Urine WBC (Auto) 12/13/17 12/14/17 12/14/17 22:19 02:03 05:16 WBC RBC Hgb Hct MCV MCH MCHC Plt Count Seg Neuts % (Manual) Lymphocytes % (Manual) Monocytes % (Manual) Nucleated RBC % Lymphocytes # (Manual) Monocytes # (Manual) APTT POC ABG pH 7.247 L POC ABG pCO2 61.2 H POC ABG pO2 53 L VBG pH Sodium Chloride Carbon Dioxide BUN Glucose POC Glucose 274 H 295 H Lactic Acid Calcium Total Bilirubin AST ALT Albumin Amylase Lipase Urine WBC (Auto) 12/14/17 12/14/17 12/14/17 05:32 12:04 16:22 WBC RBC Hgb Hct MCV MCH MCHC Plt Count Seg Neuts % (Manual) Lymphocytes % (Manual) Monocytes % (Manual) Nucleated RBC % Lymphocytes # (Manual) Monocytes # (Manual) APTT POC ABG pH POC ABG pCO2 POC ABG pO2 VBG pH Sodium Chloride Carbon Dioxide BUN Glucose POC Glucose 230 H 241 H 231 H Lactic Acid Calcium Total Bilirubin AST ALT Albumin Amylase Lipase Urine WBC (Auto) 12/14/17 12/15/17 12/15/17 21:29 02:29 03:25 WBC RBC Hgb Hct MCV MCH MCHC Plt Count Seg Neuts % (Manual) Lymphocytes % (Manual) Monocytes % (Manual) Nucleated RBC % Lymphocytes # (Manual) Monocytes # (Manual) APTT POC ABG pH 7.330 L POC ABG pCO2 55.3 H POC ABG pO2 59 L VBG pH Sodium Chloride Carbon Dioxide BUN Glucose POC Glucose 258 H 246 H Lactic Acid Calcium Total Bilirubin AST ALT Albumin Amylase Lipase Urine WBC (Auto) 12/15/17 12/15/17 12/15/17 04:05 04:05 04:05 WBC 15.0 H RBC 3.40 L Hgb 11.3 L D Hct 33.8 L D MCV 100 H MCH 33 H MCHC Plt Count 48 L Seg Neuts % (Manual) Lymphocytes % (Manual) 3.0 L Monocytes % (Manual) Nucleated RBC % 2.0 H Lymphocytes # (Manual) 0.5 L Monocytes # (Manual) 0.9 H APTT 20.9 L POC ABG pH POC ABG pCO2 POC ABG pO2 VBG pH Sodium Chloride Carbon Dioxide BUN 27 H Glucose 258 H POC Glucose Lactic Acid Calcium 8.1 L Total Bilirubin AST ALT Albumin Amylase Lipase Urine WBC (Auto) 12/15/17 12/15/17 12/15/17 05:32 11:17 14:59 WBC RBC Hgb Hct MCV MCH MCHC Plt Count Seg Neuts % (Manual) Lymphocytes % (Manual) Monocytes % (Manual) Nucleated RBC % Lymphocytes # (Manual) Monocytes # (Manual) APTT POC ABG pH POC ABG pCO2 POC ABG pO2 VBG pH Sodium Chloride Carbon Dioxide BUN Glucose POC Glucose 247 H 268 H 233 H Lactic Acid Calcium Total Bilirubin AST ALT Albumin Amylase Lipase Urine WBC (Auto) 12/15/17 12/15/17 12/15/17 17:00 18:59 21:37 WBC RBC Hgb Hct MCV MCH MCHC Plt Count Seg Neuts % (Manual) Lymphocytes % (Manual) Monocytes % (Manual) Nucleated RBC % Lymphocytes # (Manual) Monocytes # (Manual) APTT POC ABG pH POC ABG pCO2 POC ABG pO2 VBG pH Sodium Chloride Carbon Dioxide BUN Glucose POC Glucose 195 H 208 H Lactic Acid Calcium Total Bilirubin AST ALT Albumin Amylase Lipase Urine WBC (Auto) 38.0 H 12/16/17 12/16/17 12/16/17 03:17 03:33 04:18 WBC 16.4 H RBC 3.50 L Hgb 11.3 L Hct 35.4 L MCV 101 H MCH MCHC Plt Count 54 L Seg Neuts % (Manual) Lymphocytes % (Manual) Monocytes % (Manual) Nucleated RBC % Lymphocytes # (Manual) Monocytes # (Manual) APTT POC ABG pH POC ABG pCO2 47.7 H POC ABG pO2 VBG pH Sodium Chloride Carbon Dioxide BUN Glucose POC Glucose 227 H Lactic Acid Calcium Total Bilirubin AST ALT Albumin Amylase Lipase Urine WBC (Auto) 12/16/17 12/16/17 12/16/17 04:18 05:08 10:01 WBC RBC Hgb Hct MCV MCH MCHC Plt Count Seg Neuts % (Manual) Lymphocytes % (Manual) Monocytes % (Manual) Nucleated RBC % Lymphocytes # (Manual) Monocytes # (Manual) APTT POC ABG pH POC ABG pCO2 POC ABG pO2 VBG pH Sodium 147 H Chloride 107.4 H Carbon Dioxide BUN 28 H Glucose 240 H POC Glucose 227 H 190 H Lactic Acid Calcium 8.3 L Total Bilirubin AST ALT Albumin Amylase Lipase Urine WBC (Auto) 12/16/17 12/16/17 12/16/17 14:15 17:51 21:14 WBC RBC Hgb Hct MCV MCH MCHC Plt Count Seg Neuts % (Manual) Lymphocytes % (Manual) Monocytes % (Manual) Nucleated RBC % Lymphocytes # (Manual) Monocytes # (Manual) APTT POC ABG pH POC ABG pCO2 POC ABG pO2 VBG pH Sodium Chloride Carbon Dioxide BUN Glucose POC Glucose 279 H 272 H 260 H Lactic Acid Calcium Total Bilirubin AST ALT Albumin Amylase Lipase Urine WBC (Auto) 12/17/17 12/17/17 12/17/17 02:41 04:28 04:28 WBC 19.1 H RBC 3.50 L Hgb 11.4 L Hct 35.3 L MCV 101 H MCH 33 H MCHC Plt Count 65 L Seg Neuts % (Manual) Lymphocytes % (Manual) Monocytes % (Manual) Nucleated RBC % Lymphocytes # (Manual) Monocytes # (Manual) APTT POC ABG pH POC ABG pCO2 POC ABG pO2 VBG pH Sodium 153 H Chloride 111.2 H Carbon Dioxide 31 H BUN 28 H Glucose 248 H POC Glucose 300 H Lactic Acid Calcium Total Bilirubin AST ALT Albumin Amylase Lipase Urine WBC (Auto) 12/17/17 12/17/17 12/17/17 05:15 05:38 10:16 WBC RBC Hgb Hct MCV MCH MCHC Plt Count Seg Neuts % (Manual) Lymphocytes % (Manual) Monocytes % (Manual) Nucleated RBC % Lymphocytes # (Manual) Monocytes # (Manual) APTT POC ABG pH POC ABG pCO2 50.3 H POC ABG pO2 120 H VBG pH Sodium Chloride Carbon Dioxide BUN Glucose POC Glucose 231 H 196 H Lactic Acid Calcium Total Bilirubin AST ALT Albumin Amylase Lipase Urine WBC (Auto) Chest x-ray: report reviewed, image reviewed (improving bilateral infiltrates)
[2017-12-17] MEDS: TYLENOL PO PRN (16:20)
[2017-12-17] MEDS: MIDAZOLAM 100 MG in NACL 0.9% 80 ML IV SCH (21:24)
[2017-12-17] MEDS: PEPCID PO SCH (21:33)
[2017-12-17] MEDS ORDERED: D5NS 0.2% 1,000 ML IV SCH (23:45)
[2017-12-18] MEDS: HumaLOG SUB-Q SCH ×7 (00:20→22:44)
--- NOTE | 2017-12-18 01:48 | XRay Report ---
FINAL REPORT EXAM: XR CHEST 1V AP HISTORY: hyperventilated TECHNIQUE: A portable upright view the chest was obtained and compared to the study of 12/17/2017. FINDINGS: The lungs reveal diffuse airspace disease which has worsened since the previous study. Heart is mildly enlarged. Underlying effusions cannot be excluded. The tip of the ET tube is 4 cm above the valentín. The NG tube is in good position in the stomach. There are EKG leads overlying the chest wall. The bones and soft tissues otherwise are unchanged. IMPRESSION: Worsening bilateral airspace disease since the previous study. Satisfactory position of the ET tube and NG tube.
[2017-12-18] MEDS ORDERED: VERSED IV ONE (02:05)
--- NOTE | 2017-12-18 02:13 | Event Note ---
called about pt biting tube. Pt w acute resp failure on vent with possible aspiration at time of intubation. CXR done showed increase in bilat process ADRS vs aspiration pneumonitis. Volume overload also possibilty. Will continue on sedation and pain meds. Also start on morphine, extra dose of versed. Bite block put in prior to staff calling. Will also start on solumedrol overall prognosis is poor. continue on antibx continue pulm toilet and vent setting. will need adequate sedation on present settings discussed w resp and bedside nurse
[2017-12-18] MEDS: DUONEB *Not for PRN Use IH SCH ×4 (02:28→21:04)
[2017-12-18] MEDS: MORPHINE IV PRN (02:30)
--- NOTE | 2017-12-18 06:04 | XRay Report ---
FINAL REPORT EXAM: XR CHEST 1V AP HISTORY: resp distress TECHNIQUE: A portable upright view the chest was obtained and compared to the study of the same day. FINDINGS: The lungs remain diffusely congested with stable bilateral airspace disease. The ET tube and NG tube appear in good position. There are EKG leads overlying the chest wall. The heart is mildly enlarged. The bones soft tissues are unchanged. IMPRESSION: Stable pulmonary congestion with bilaterally space disease. No change from the previous study.
[2017-12-18] MEDS: CLEOCIN 600 MG/50 mL 600 MG/50 ML BAG IV SCH ×3 (06:25→22:45)
[2017-12-18] MEDS: fentaNYL DRIP Premix 2,000 MCG/100 ML BAG IV SCH ×4 (07:25→22:26)
--- NOTE | 2017-12-18 08:07 | Event Note ---
Pt still w desaturation earlier. CXR reviewed Vent adjusted with improvement. will wean fio2 as tolerated. Spoke w re status.
[2017-12-18 09:31] LABS: Hemoglobin 11.4 gm/dl (11.8-15.2); Mean Corpuscular HGB Conc 32 % (32-34); Mean Corpuscular Hemoglobin 32 pg (28-32); Mean Corpuscular Volume 101 fl (84-94); Red Blood Count 3.57 M/mm3 (3.65-5.03); Red Cell Distribution Width 13.7 % (13.2-15.2)
[2017-12-18 09:38] LABS: Platelet Count 64 K/mm3 (140-440)
[2017-12-18] MEDS: LEVAQUIN 750MG/150ML 750 MG/150 ML BAG IV SCH (09:41)
[2017-12-18] MEDS: SODIUM CHLORIDE FLUSH SYRINGE 10 ML IV SCH ×2 (09:41→21:42)
[2017-12-18] MEDS: PEPCID PO SCH ×2 (09:41→21:42)
[2017-12-18] MEDS: VITAMIN B-1 PO SCH (09:42)
[2017-12-18 09:43] LABS: BUN/Creatinine Ratio 33; Blood Urea Nitrogen 23 mg/dL (9-20); Calcium 8.9 mg/dL (8.4-10.2); Hemolysis Index 18
[2017-12-18] MEDS: LANTUS SUB-Q SCH (09:49)
[2017-12-18] MEDS: SENOKOT S PO SCH ×2 (10:21→21:42)
[2017-12-18] MEDS: TYLENOL PO PRN ×2 (11:56→21:41)
[2017-12-18] MEDS ORDERED: SUBLIMAZE IV PRN (14:50)
--- NOTE | 2017-12-18 15:30 | Progress Note ---
Assessment and Plan Imp: 1. Haemophilus influenza pneumonia and bacteremia 2. Severe sepsis 3. ARDS 4. Acute respiratory failure, hypoxia 5. Hypernatremia Rec: 1. Cont. Levaquin versus H.flu; changed to Clinda to cover aspiration since there was vomiting around the time of intubation; given fevers and rising WBC will add Vancomycin pending repeat cultures, and if any further worsening can consider broadening GNR coverage but has been on Zosyn until 12/17 and levaquin since admit 2. Stop IVFs; keep as dry as possible at his point; increased free water to 300mL and monitor sodium 3. Wean FiO2; keep heavily sedated and skip spontaneous awakening trials for now pending improvement in oxygenation; tried on PRVC but failed 12/17/17 , so will need to slowly decrease the FiO2 and P high on APRV 4. SCDs, GI PPx, TFs 5. Check Echo, HIV status, and vasculitis work-up 6. Prognosis is guarded; plan of care reviewed with , she understands/agrees CCt 31 minutes Subjective Date of service: 12/18/17 Principal diagnosis: ARDS Interval history: On APRV 80%. Had some desatuartions this AM -> apparently T low and T high were switched this AM for unclear reasons (not documented as such), and once corrected, patient's hypoxia mirpoved. Heavily sedated. Cannot provide history. BP good. + Fevers. Active Medications Acetaminophen (Tylenol) 650 mg PO Q6H PRN PRN Reason: Pain, Mild (1-3),temp 100.5or> Last Admin: 12/18/17 11:56 Dose: 650 mg Albuterol (Proventil) 2.5 mg IH Q4HRT PRN PRN Reason: Shortness Of Breath Last Admin: 12/13/17 03:01 Dose: 2.5 mg Albuterol/Ipratropium (Duoneb *Not For Prn Use*) 1 ampul IH Q6HRT [facility] Last Admin: 12/18/17 14:09 Dose: 1 ampul Lipase/Protease/Amylase (Cassidy Vargas 10,500 Unit) 1 each FEEDTUBE PRN PRN PRN Reason: For Clogged Feeding Tube Dextrose (D50w (25gm) Syringe) 50 ml IV PRN PRN PRN Reason: Hypoglycemia Famotidine (Pepcid) 20 mg PO BID [facility] Last Admin: 12/18/17 09:41 Dose: 20 mg Fentanyl (Sublimaze) 50 mcg IV Q2H PRN PRN Reason: PAIN/AGITATION Last Admin: 12/18/17 15:02 Dose: 50 mcg Hydrophilic Ointment (Vaseline Lip Therapy) 1 applic TP Q2HR PRN PRN Reason: Dry Lips Levofloxacin/Dextrose (Levaquin 750mg/150ml) 750 mg in 150 mls @ 100 mls/hr IV Q24HR [facility]; Protocol Last Admin: 12/18/17 09:41 Dose: 100 mls/hr Fentanyl Citrate (Fentanyl Drip Premix) 2,000 mcg in 100 mls @ 5.058 mls/hr IV TITR [facility]; Protocol Last Titration: 12/18/17 13:11 Dose: 4 mcg/kg/hr, 20.23 mls/hr Midazolam HCl 100 mg/ Sodium (Chloride) 100 mls @ 2 mls/hr IV TITR [facility]; Protocol Last Titration: 12/18/17 14:50 Dose: 4 mg/hr, 4 mls/hr Clindamycin HCl (Cleocin 600 Mg/50 Ml) 600 mg in 50 mls @ 100 mls/hr IV Q8HR [facility] Stop: 12/20/17 13:59 Last Admin: 12/18/17 13:11 Dose: 100 mls/hr Propofol (Diprivan 10 Mg/Ml) 1,000 mg in 100 mls @ 3.264 mls/hr IV TITR [facility]; Protocol Insulin Glargine (Lantus) 10 units SUB-Q DAILY [facility] Last Admin: 12/18/17 09:49 Dose: 10 units Insulin Human Lispro (Humalog) 0 unit SUB-Q Q4H [facility]; Protocol Last Admin: 12/18/17 15:02 Dose: 4 unit Methylprednisolone Sodium Succinate (Solu-Medrol) 80 mg IV Q6H [facility] Last Admin: 12/18/17 13:11 Dose: 80 mg Morphine Sulfate (Morphine) 2 mg IV Q4H PRN PRN Reason: Pain, Moderate (4-6) Last Admin: 12/18/17 02:30 Dose: 2 mg Multi-Ingred Cream/Lotion/Oil/Oint (Artificial Tears Ophth Oint) 1 applic OU Q4HR PRN PRN Reason: Dry Eye(s) Ondansetron HCl (Zofran) 4 mg IV Q8H PRN PRN Reason: Nausea And Vomiting Senna/Docusate Sodium (Senokot S) 1 tab PO BID [facility] Last Admin: 12/18/17 10:21 Dose: 1 tab Simple Syrup (Simple Syrup) 15 ml FEEDTUBE PRN PRN PRN Reason: Hypoglycemia Simple Syrup (Simple Syrup) 30 ml FEEDTUBE PRN PRN PRN Reason: Hypoglycemia Sodium Bicarbonate (Sodium Bicarbonate) 325 mg FEEDTUBE PRN PRN PRN Reason: For Clogged Feeding Tube Sodium Chloride (Sodium Chloride Flush Syringe 10 Ml) 10 ml IV BID [facility] Last Admin: 12/18/17 09:41 Dose: 10 ml Sodium Chloride (Sodium Chloride Flush Syringe 10 Ml) 10 ml IV PRN PRN PRN Reason: LINE FLUSH Thiamine HCl (Vitamin B-1) 100 mg PO QDAY [facility] Last Admin: 12/18/17 09:42 Dose: 100 mg Vancomycin HCl (Vancomycin Pharmacy To Dose) 1 each IV PKCONSULT [facility]; Protocol Objective Vital Signs - 12hr 12/18/17 12/18/17 12/18/17 03:48 04:00 05:01 Temperature Pulse Rate 126 H 125 H 130 H Pulse Rate [ Anterior Bilateral Throughout] Pulse Rate [ From Monitor] Respiratory 27 H 26 H 40 H Rate Respiratory Rate [Anterior Bilateral Throughout] Blood Pressure 127/77 133/74 130/74 O2 Sat by Pulse 83 L 82 L 78 L Oximetry 12/18/17 12/18/17 12/18/17 06:00 06:01 07:00 Temperature Pulse Rate 134 H 132 H Pulse Rate [ Anterior Bilateral Throughout] Pulse Rate [ From Monitor] Respiratory 36 H 36 H Rate Respiratory Rate [Anterior Bilateral Throughout] Blood Pressure 134/80 125/73 O2 Sat by Pulse 84 78 L 81 L Oximetry 12/18/17 12/18/17 12/18/17 07:33 08:00 09:00 Temperature 101.3 F H Pulse Rate 125 H 124 H 117 H Pulse Rate [ 134 H Anterior Bilateral Throughout] Pulse Rate [ 125 H From Monitor] Respiratory 12 12 Rate Respiratory Rate [Anterior Bilateral Throughout] Blood Pressure 125/73 120/75 110/72 O2 Sat by Pulse 95 95 96 Oximetry 12/18/17 12/18/17 12/18/17 10:00 11:00 11:56 Temperature Pulse Rate 106 H 99 H Pulse Rate [ Anterior Bilateral Throughout] Pulse Rate [ From Monitor] Respiratory 12 12 12 Rate Respiratory Rate [Anterior Bilateral Throughout] Blood Pressure 107/62 98/61 O2 Sat by Pulse 97 98 Oximetry 12/18/17 12/18/17 12/18/17 12:00 13:00 14:00 Temperature 101.8 F H Pulse Rate 104 H 99 H 94 H Pulse Rate [ 96 H Anterior Bilateral Throughout] Pulse Rate [ 104 H From Monitor] Respiratory 12 12 12 Rate Respiratory 13 Rate [Anterior Bilateral Throughout] Blood Pressure 113/69 96/61 91/61 O2 Sat by Pulse 98 98 98 Oximetry 12/18/17 12/18/17 12/18/17 14:15 15:01 15:02 Temperature Pulse Rate 134 H Pulse Rate [ 98 H Anterior Bilateral Throughout] Pulse Rate [ From Monitor] Respiratory 13 14 Rate Respiratory 14 Rate [Anterior Bilateral Throughout] Blood Pressure 133/84 O2 Sat by Pulse 98 Oximetry Constitutional: other (intubated, sedated) Eyes: non-icteric ENT: oropharynx moist Neck: supple Effort: normal Ascultation: Bilateral: other (coarse BS bilaterally) Cardiovascular: regular rate and rhythm, other (tachycardic) Gastrointestinal: normoactive bowel sounds, soft, non-tender, non-distended, other (obese) Integumentary: normal Extremities: no cyanosis, no edema, pink and warm Neurologic: unable to assess (due to sedation) Psychiatric: other (not able to assess) CBC and BMP: 12/18/17 09:20 12/18/17 09:20 ABG, PT/INR, D-dimer: ABG POC ABG pH 7.414 (7.35-7.45) 12/18/17 00:53 POC ABG pCO2 56.4 (35-45) H 12/18/17 00:53 POC ABG pO2 46 (80-105) L 12/18/17 00:53 POC ABG HCO3 36.1 12/18/17 00:53 POC ABG Total CO2 38 12/18/17 00:53 POC ABG O2 Sat 81 12/18/17 00:53 PT/INR, D-dimer PT 14.9 Sec. (12.2-14.9) 12/15/17 04:05 INR 1.11 (0.87-1.13) 12/15/17 04:05 Abnormal lab findings: Abnormal Labs 12/12/17 12/12/17 12/12/17 18:57 19:02 19:02 WBC RBC Hgb Hct MCV 96 H MCH 34 H MCHC 35 H Plt Count 46 L Seg Neuts % (Manual) 77.0 H Lymphocytes % (Manual) 13.0 L Monocytes % (Manual) Nucleated RBC % Lymphocytes # (Manual) 0.9 L Monocytes # (Manual) APTT POC ABG pH POC ABG pCO2 POC ABG pO2 VBG pH Sodium Chloride Carbon Dioxide BUN Creatinine Glucose POC Glucose 321 H Lactic Acid 4.00 H* Calcium Total Bilirubin AST ALT Albumin Amylase Lipase Urine WBC (Auto) 12/12/17 12/12/17 12/12/17 19:02 19:18 20:55 WBC RBC Hgb Hct MCV MCH MCHC Plt Count Seg Neuts % (Manual) Lymphocytes % (Manual) Monocytes % (Manual) Nucleated RBC % Lymphocytes # (Manual) Monocytes # (Manual) APTT POC ABG pH POC ABG pCO2 POC ABG pO2 VBG pH 7.472 H Sodium 124 L Chloride 80.0 L Carbon Dioxide 20 L BUN Creatinine Glucose 382 H POC Glucose 283 H Lactic Acid Calcium 8.1 L Total Bilirubin 4.60 H AST 93 H ALT 112 H Albumin 2.5 L Amylase Lipase Urine WBC (Auto) 12/12/17 12/13/17 12/13/17 21:41 00:45 01:29 WBC RBC Hgb Hct MCV MCH MCHC Plt Count Seg Neuts % (Manual) Lymphocytes % (Manual) Monocytes % (Manual) Nucleated RBC % Lymphocytes # (Manual) Monocytes # (Manual) APTT POC ABG pH POC ABG pCO2 POC ABG pO2 VBG pH Sodium Chloride Carbon Dioxide BUN Creatinine Glucose POC Glucose Lactic Acid 4.20 H* 2.70 H* 3.30 H* Calcium Total Bilirubin AST ALT Albumin Amylase Lipase Urine WBC (Auto) 12/13/17 12/13/17 12/13/17 02:19 03:44 05:58 WBC RBC Hgb Hct MCV 97 H MCH 34 H MCHC 35 H Plt Count 41 L Seg Neuts % (Manual) Lymphocytes % (Manual) 8.0 L Monocytes % (Manual) 8.0 H Nucleated RBC % Lymphocytes # (Manual) 0.6 L Monocytes # (Manual) APTT POC ABG pH 7.334 L POC ABG pCO2 POC ABG pO2 43 L VBG pH Sodium Chloride Carbon Dioxide BUN Creatinine Glucose POC Glucose Lactic Acid 2.60 H* Calcium Total Bilirubin AST ALT Albumin Amylase Lipase Urine WBC (Auto) 12/13/17 12/13/17 12/13/17 05:58 05:58 05:58 WBC RBC Hgb Hct MCV MCH MCHC Plt Count Seg Neuts % (Manual) Lymphocytes % (Manual) Monocytes % (Manual) Nucleated RBC % Lymphocytes # (Manual) Monocytes # (Manual) APTT POC ABG pH POC ABG pCO2 POC ABG pO2 VBG pH Sodium 132 L D Chloride 90.0 L Carbon Dioxide 20 L BUN Creatinine Glucose 346 H POC Glucose 298 H Lactic Acid 4.50 H* Calcium 8.2 L Total Bilirubin AST ALT Albumin Amylase Lipase Urine WBC (Auto) 12/13/17 12/13/17 12/13/17 06:27 09:42 11:47 WBC RBC Hgb Hct MCV MCH MCHC Plt Count Seg Neuts % (Manual) Lymphocytes % (Manual) Monocytes % (Manual) Nucleated RBC % Lymphocytes # (Manual) Monocytes # (Manual) APTT POC ABG pH 7.267 L 7.298 L POC ABG pCO2 50.4 H 51.3 H POC ABG pO2 47 L 43 L VBG pH Sodium Chloride Carbon Dioxide BUN Creatinine Glucose POC Glucose 376 H Lactic Acid Calcium Total Bilirubin AST ALT Albumin Amylase Lipase Urine WBC (Auto) 12/13/17 12/13/17 12/13/17 12:03 13:47 13:47 WBC RBC Hgb Hct MCV MCH MCHC Plt Count Seg Neuts % (Manual) Lymphocytes % (Manual) Monocytes % (Manual) Nucleated RBC % Lymphocytes # (Manual) Monocytes # (Manual) APTT POC ABG pH 7.264 L POC ABG pCO2 54.9 H POC ABG pO2 55 L VBG pH Sodium Chloride Carbon Dioxide BUN Creatinine Glucose POC Glucose Lactic Acid 2.80 H* Calcium Total Bilirubin AST ALT Albumin Amylase 20 L Lipase 9 L Urine WBC (Auto) 12/13/17 12/13/17 12/13/17 15:36 17:39 21:47 WBC RBC Hgb Hct MCV MCH MCHC Plt Count Seg Neuts % (Manual) Lymphocytes % (Manual) Monocytes % (Manual) Nucleated RBC % Lymphocytes # (Manual) Monocytes # (Manual) APTT POC ABG pH 7.229 L 7.225 L POC ABG pCO2 60.9 H 66.3 H POC ABG pO2 42 L 41 L VBG pH Sodium Chloride Carbon Dioxide BUN Creatinine Glucose POC Glucose 289 H Lactic Acid Calcium Total Bilirubin AST ALT Albumin Amylase Lipase Urine WBC (Auto) 12/13/17 12/14/17 12/14/17 22:19 02:03 05:16 WBC RBC Hgb Hct MCV MCH MCHC Plt Count Seg Neuts % (Manual) Lymphocytes % (Manual) Monocytes % (Manual) Nucleated RBC % Lymphocytes # (Manual) Monocytes # (Manual) APTT POC ABG pH 7.247 L POC ABG pCO2 61.2 H POC ABG pO2 53 L VBG pH Sodium Chloride Carbon Dioxide BUN Creatinine Glucose POC Glucose 274 H 295 H Lactic Acid Calcium Total Bilirubin AST ALT Albumin Amylase Lipase Urine WBC (Auto) 12/14/17 12/14/17 12/14/17 05:32 12:04 16:22 WBC RBC Hgb Hct MCV MCH MCHC Plt Count Seg Neuts % (Manual) Lymphocytes % (Manual) Monocytes % (Manual) Nucleated RBC % Lymphocytes # (Manual) Monocytes # (Manual) APTT POC ABG pH POC ABG pCO2 POC ABG pO2 VBG pH Sodium Chloride Carbon Dioxide BUN Creatinine Glucose POC Glucose 230 H 241 H 231 H Lactic Acid Calcium Total Bilirubin AST ALT Albumin Amylase Lipase Urine WBC (Auto) 12/14/17 12/15/17 12/15/17 21:29 02:29 03:25 WBC RBC Hgb Hct MCV MCH MCHC Plt Count Seg Neuts % (Manual) Lymphocytes % (Manual) Monocytes % (Manual) Nucleated RBC % Lymphocytes # (Manual) Monocytes # (Manual) APTT POC ABG pH 7.330 L POC ABG pCO2 55.3 H POC ABG pO2 59 L VBG pH Sodium Chloride Carbon Dioxide BUN Creatinine Glucose POC Glucose 258 H 246 H Lactic Acid Calcium Total Bilirubin AST ALT Albumin Amylase Lipase Urine WBC (Auto) 12/15/17 12/15/17 12/15/17 04:05 04:05 04:05 WBC 15.0 H RBC 3.40 L Hgb 11.3 L D Hct 33.8 L D MCV 100 H MCH 33 H MCHC Plt Count 48 L Seg Neuts % (Manual) Lymphocytes % (Manual) 3.0 L Monocytes % (Manual) Nucleated RBC % 2.0 H Lymphocytes # (Manual) 0.5 L Monocytes # (Manual) 0.9 H APTT 20.9 L POC ABG pH POC ABG pCO2 POC ABG pO2 VBG pH Sodium Chloride Carbon Dioxide BUN 27 H Creatinine Glucose 258 H POC Glucose Lactic Acid Calcium 8.1 L Total Bilirubin AST ALT Albumin Amylase Lipase Urine WBC (Auto) 12/15/17 12/15/17 12/15/17 05:32 11:17 14:59 WBC RBC Hgb Hct MCV MCH MCHC Plt Count Seg Neuts % (Manual) Lymphocytes % (Manual) Monocytes % (Manual) Nucleated RBC % Lymphocytes # (Manual) Monocytes # (Manual) APTT POC ABG pH POC ABG pCO2 POC ABG pO2 VBG pH Sodium Chloride Carbon Dioxide BUN Creatinine Glucose POC Glucose 247 H 268 H 233 H Lactic Acid Calcium Total Bilirubin AST ALT Albumin Amylase Lipase Urine WBC (Auto) 12/15/17 12/15/17 12/15/17 17:00 18:59 21:37 WBC RBC Hgb Hct MCV MCH MCHC Plt Count Seg Neuts % (Manual) Lymphocytes % (Manual) Monocytes % (Manual) Nucleated RBC % Lymphocytes # (Manual) Monocytes # (Manual) APTT POC ABG pH POC ABG pCO2 POC ABG pO2 VBG pH Sodium Chloride Carbon Dioxide BUN Creatinine Glucose POC Glucose 195 H 208 H Lactic Acid Calcium Total Bilirubin AST ALT Albumin Amylase Lipase Urine WBC (Auto) 38.0 H 12/16/17 12/16/17 12/16/17 03:17 03:33 04:18 WBC 16.4 H RBC 3.50 L Hgb 11.3 L Hct 35.4 L MCV 101 H MCH MCHC Plt Count 54 L Seg Neuts % (Manual) Lymphocytes % (Manual) Monocytes % (Manual) Nucleated RBC % Lymphocytes # (Manual) Monocytes # (Manual) APTT POC ABG pH POC ABG pCO2 47.7 H POC ABG pO2 VBG pH Sodium Chloride Carbon Dioxide BUN Creatinine Glucose POC Glucose 227 H Lactic Acid Calcium Total Bilirubin AST ALT Albumin Amylase Lipase Urine WBC (Auto) 12/16/17 12/16/17 12/16/17 04:18 05:08 10:01 WBC RBC Hgb Hct MCV MCH MCHC Plt Count Seg Neuts % (Manual) Lymphocytes % (Manual) Monocytes % (Manual) Nucleated RBC % Lymphocytes # (Manual) Monocytes # (Manual) APTT POC ABG pH POC ABG pCO2 POC ABG pO2 VBG pH Sodium 147 H Chloride 107.4 H Carbon Dioxide BUN 28 H Creatinine Glucose 240 H POC Glucose 227 H 190 H Lactic Acid Calcium 8.3 L Total Bilirubin AST ALT Albumin Amylase Lipase Urine WBC (Auto) 12/16/17 12/16/17 12/16/17 14:15 17:51 21:14 WBC RBC Hgb Hct MCV MCH MCHC Plt Count Seg Neuts % (Manual) Lymphocytes % (Manual) Monocytes % (Manual) Nucleated RBC % Lymphocytes # (Manual) Monocytes # (Manual) APTT POC ABG pH POC ABG pCO2 POC ABG pO2 VBG pH Sodium Chloride Carbon Dioxide BUN Creatinine Glucose POC Glucose 279 H 272 H 260 H Lactic Acid Calcium Total Bilirubin AST ALT Albumin Amylase Lipase Urine WBC (Auto) 12/17/17 12/17/17 12/17/17 02:41 04:28 04:28 WBC 19.1 H RBC 3.50 L Hgb 11.4 L Hct 35.3 L MCV 101 H MCH 33 H MCHC Plt Count 65 L Seg Neuts % (Manual) Lymphocytes % (Manual) Monocytes % (Manual) Nucleated RBC % Lymphocytes # (Manual) Monocytes # (Manual) APTT POC ABG pH POC ABG pCO2 POC ABG pO2 VBG pH Sodium 153 H Chloride 111.2 H Carbon Dioxide 31 H BUN 28 H Creatinine Glucose 248 H POC Glucose 300 H Lactic Acid Calcium Total Bilirubin AST ALT Albumin Amylase Lipase Urine WBC (Auto) 12/17/17 12/17/17 12/17/17 05:15 05:38 10:16 WBC RBC Hgb Hct MCV MCH MCHC Plt Count Seg Neuts % (Manual) Lymphocytes % (Manual) Monocytes % (Manual) Nucleated RBC % Lymphocytes # (Manual) Monocytes # (Manual) APTT POC ABG pH POC ABG pCO2 50.3 H POC ABG pO2 120 H VBG pH Sodium Chloride Carbon Dioxide BUN Creatinine Glucose POC Glucose 231 H 196 H Lactic Acid Calcium Total Bilirubin AST ALT Albumin Amylase Lipase Urine WBC (Auto) 12/17/17 12/17/17 12/17/17 14:22 18:14 21:35 WBC RBC Hgb Hct MCV MCH MCHC Plt Count Seg Neuts % (Manual) Lymphocytes % (Manual) Monocytes % (Manual) Nucleated RBC % Lymphocytes # (Manual) Monocytes # (Manual) APTT POC ABG pH POC ABG pCO2 POC ABG pO2 VBG pH Sodium Chloride Carbon Dioxide BUN Creatinine Glucose POC Glucose 234 H 215 H 159 H Lactic Acid Calcium Total Bilirubin AST ALT Albumin Amylase Lipase Urine WBC (Auto) 12/18/17 12/18/17 12/18/17 00:53 02:58 06:03 WBC RBC Hgb Hct MCV MCH MCHC Plt Count Seg Neuts % (Manual) Lymphocytes % (Manual) Monocytes % (Manual) Nucleated RBC % Lymphocytes # (Manual) Monocytes # (Manual) APTT POC ABG pH POC ABG pCO2 56.4 H POC ABG pO2 46 L VBG pH Sodium Chloride Carbon Dioxide BUN Creatinine Glucose POC Glucose 176 H 143 H Lactic Acid Calcium Total Bilirubin AST ALT Albumin Amylase Lipase Urine WBC (Auto) 12/18/17 12/18/17 12/18/17 07:59 09:20 09:20 WBC 27.4 H RBC 3.57 L Hgb 11.4 L Hct MCV 101 H MCH MCHC Plt Count 64 L Seg Neuts % (Manual) Lymphocytes % (Manual) Monocytes % (Manual) Nucleated RBC % Lymphocytes # (Manual) Monocytes # (Manual) APTT POC ABG pH POC ABG pCO2 POC ABG pO2 VBG pH Sodium 152 H Chloride 107.9 H Carbon Dioxide 34 H BUN 23 H Creatinine 0.7 L Glucose 181 H POC Glucose 197 H Lactic Acid Calcium Total Bilirubin AST ALT Albumin Amylase Lipase Urine WBC (Auto) 12/18/17 12/18/17 10:22 15:03 WBC RBC Hgb Hct MCV MCH MCHC Plt Count Seg Neuts % (Manual) Lymphocytes % (Manual) Monocytes % (Manual) Nucleated RBC % Lymphocytes # (Manual) Monocytes # (Manual) APTT POC ABG pH POC ABG pCO2 POC ABG pO2 VBG pH Sodium Chloride Carbon Dioxide BUN Creatinine Glucose POC Glucose 195 H 225 H Lactic Acid Calcium Total Bilirubin AST ALT Albumin Amylase Lipase Urine WBC (Auto) Chest x-ray: report reviewed, image reviewed (no change in ARDS)
[2017-12-18] MEDS: DIPRIVAN 10 MG/ML 1,000 MG/100 ML BOTTLE IV SCH ×2 (15:40→23:34)
[2017-12-18] MEDS ORDERED: VANCOMYCIN PHARMACY TO DOSE IV SCH (16:00)
[2017-12-18] MEDS: VANCOMYCIN 1,500 MG in NACL 0.9% 500 ML 500 ML IV SCH (17:33)
--- NOTE | 2017-12-18 18:03 | Progress Note ---
Assessment and Plan Acute hypoxic respiratory failure - suspected due to ARDS/aspiration pneumonia: on iv clindamycin/levaquin Suspected ARDS: - Pulmonology is following Sepsis with Aspiration pneumonia ?, poa: - on IV antibiotics, repeat blood cx negative - cont to spike fever, consult ID Alcohol abuse: sedated, cont iv thiamine Hypotension resolved with ivfs and iv steroids Thrombocytopenia, - severe most likely due to sepsis: hold heparin Hypernatremia - place on maintenance fluid with hypotonic fluid, cont free water with TF, monitor BMP, improving DM type 2- cont long acting and SSI DVT prophylaxis: scd only, due to thrombocytopenia Brief History: Patient is a 47 yo man with a history of tobacco dependency, alcohol abuse, dm type 2, hypertension and asthma who presented to [facility] ED with SOB and found to be severely hypoxic, failed bipap and was intubated. There is report of n/v during and after intubation. Hospitalist Physical GEN: Ill-appearing HEENT: NCAT, pupils react, ET tube, NG tube in place NECK: supple, CVS/HEART:regular tachy NORMAL S1S2, pulses present bilaterally CHEST/LUNGS: Symmetrical chest expansion, good air entry bilaterally GI/Abdomen: soft, distended, good bowel sounds, no guarding or rebound /Bladder: condom cath in place EXT/Skin: Dependent edema MSK: sedated Neuro: sedated Psych: sedated Subjective Date of service: 12/18/17 Principal diagnosis: ARDS Interval history: Pt seen and examined Remained intubated and sedated Tolerating tube feeding cont to spike fever Objective - Constitutional Vitals: Vital Signs - 12hr 12/18/17 12/18/17 12/18/17 07:00 07:33 08:00 Temperature 101.3 F H Pulse Rate 132 H 125 H 124 H Pulse Rate [ 134 H Anterior Bilateral Throughout] Pulse Rate [ 125 H From Monitor] Respiratory 36 H 12 Rate Respiratory Rate [Anterior Bilateral Throughout] Blood Pressure 125/73 125/73 120/75 O2 Sat by Pulse 81 L 95 95 Oximetry 12/18/17 12/18/17 12/18/17 09:00 10:00 11:00 Temperature Pulse Rate 117 H 106 H 99 H Pulse Rate [ Anterior Bilateral Throughout] Pulse Rate [ From Monitor] Respiratory 12 12 12 Rate Respiratory Rate [Anterior Bilateral Throughout] Blood Pressure 110/72 107/62 98/61 O2 Sat by Pulse 96 97 98 Oximetry 12/18/17 12/18/17 12/18/17 11:56 12:00 13:00 Temperature 101.8 F H Pulse Rate 104 H 99 H Pulse Rate [ Anterior Bilateral Throughout] Pulse Rate [ 104 H From Monitor] Respiratory 12 12 12 Rate Respiratory Rate [Anterior Bilateral Throughout] Blood Pressure 113/69 96/61 O2 Sat by Pulse 98 98 Oximetry 12/18/17 12/18/17 12/18/17 14:00 14:15 15:01 Temperature Pulse Rate 94 H 134 H Pulse Rate [ 96 H 98 H Anterior Bilateral Throughout] Pulse Rate [ From Monitor] Respiratory 12 13 Rate Respiratory 13 14 Rate [Anterior Bilateral Throughout] Blood Pressure 91/61 133/84 O2 Sat by Pulse 98 98 Oximetry 12/18/17 12/18/17 12/18/17 15:02 16:00 16:46 Temperature 100.7 F H Pulse Rate 117 H 107 H Pulse Rate [ Anterior Bilateral Throughout] Pulse Rate [ 112 H From Monitor] Respiratory 14 13 Rate Respiratory Rate [Anterior Bilateral Throughout] Blood Pressure 102/65 102/65 O2 Sat by Pulse 97 99 Oximetry - Labs CBC & Chem 7: 12/18/17 09:20 12/18/17 09:20 Labs: Abnormal lab results 12/17/17 12/17/17 12/18/17 Range/Units 18:14 21:35 00:53 WBC (4.5-11.0) K/mm3 RBC (3.65-5.03) M/mm3 Hgb (11.8-15.2) gm/dl MCV (84-94) fl Plt Count (140-440) K/mm3 POC ABG pCO2 56.4 H (35-45) POC ABG pO2 46 L (80-105) Sodium (137-145) mmol/L Chloride (98-107) mmol/L Carbon Dioxide (22-30) mmol/L BUN (9-20) mg/dL Creatinine (0.8-1.5) mg/dL Glucose (75-100) mg/dL POC Glucose 215 H 159 H (70-105) 12/18/17 12/18/17 12/18/17 Range/Units 02:58 06:03 07:59 WBC (4.5-11.0) K/mm3 RBC (3.65-5.03) M/mm3 Hgb (11.8-15.2) gm/dl MCV (84-94) fl Plt Count (140-440) K/mm3 POC ABG pCO2 (35-45) POC ABG pO2 (80-105) Sodium (137-145) mmol/L Chloride (98-107) mmol/L Carbon Dioxide (22-30) mmol/L BUN (9-20) mg/dL Creatinine (0.8-1.5) mg/dL Glucose (75-100) mg/dL POC Glucose 176 H 143 H 197 H (70-105) 12/18/17 12/18/17 12/18/17 Range/Units 09:20 09:20 10:22 WBC 27.4 H (4.5-11.0) K/mm3 RBC 3.57 L (3.65-5.03) M/mm3 Hgb 11.4 L (11.8-15.2) gm/dl MCV 101 H (84-94) fl Plt Count 64 L (140-440) K/mm3 POC ABG pCO2 (35-45) POC ABG pO2 (80-105) Sodium 152 H (137-145) mmol/L Chloride 107.9 H (98-107) mmol/L Carbon Dioxide 34 H (22-30) mmol/L BUN 23 H (9-20) mg/dL Creatinine 0.7 L (0.8-1.5) mg/dL Glucose 181 H (75-100) mg/dL POC Glucose 195 H (70-105) 12/18/17 Range/Units 15:03 WBC (4.5-11.0) K/mm3 RBC (3.65-5.03) M/mm3 Hgb (11.8-15.2) gm/dl MCV (84-94) fl Plt Count (140-440) K/mm3 POC ABG pCO2 (35-45) POC ABG pO2 (80-105) Sodium (137-145) mmol/L Chloride (98-107) mmol/L Carbon Dioxide (22-30) mmol/L BUN (9-20) mg/dL Creatinine (0.8-1.5) mg/dL Glucose (75-100) mg/dL POC Glucose 225 H (70-105)
[2017-12-18] MEDS: MIDAZOLAM 100 MG in NACL 0.9% 80 ML IV SCH (18:13)
[2017-12-19] MEDS: HumaLOG SUB-Q SCH ×6 (02:52→22:21)
[2017-12-19] MEDS: TYLENOL PO PRN (03:15)
[2017-12-19] MEDS: fentaNYL DRIP Premix 2,000 MCG/100 ML BAG IV SCH ×2 (03:16→08:51)
[2017-12-19] MEDS: DUONEB *Not for PRN Use IH SCH ×4 (03:18→21:00)
--- NOTE | 2017-12-19 03:55 | XRay Report ---
FINAL REPORT EXAM: XR CHEST 1V AP HISTORY: follow up respiratory failure TECHNIQUE: A portable semi-upright view the chest was obtained and compared to the study 12/18/2017. FINDINGS: The lungs remain diffusely congested with extensive bilateral space disease and bilateral effusions. The heart is enlarged. The NG tube is in good position stomach. The tip of the ET tube is 5 cm above the valentín. The bones soft tissues otherwise are unchanged. IMPRESSION: Stable pulmonary vascular congestion and bilateral space disease with effusions.
[2017-12-19] MEDS: VANCOMYCIN 1,500 MG in NACL 0.9% 500 ML 500 ML IV SCH ×2 (04:43→18:29)
[2017-12-19 04:44] LABS: Hematocrit 32.8 % (35.5-45.6); Hemoglobin 10.6 gm/dl (11.8-15.2); Mean Corpuscular HGB Conc 33 % (32-34); Mean Corpuscular Hemoglobin 33 pg (28-32); Mean Corpuscular Volume 101 fl (84-94); Red Blood Count 3.25 M/mm3 (3.65-5.03); Red Cell Distribution Width 13.5 % (13.2-15.2)
[2017-12-19 05:00] LABS: Platelet Count 67 K/mm3 (140-440)
[2017-12-19 05:07] LABS: BUN/Creatinine Ratio 34; Blood Urea Nitrogen 31 mg/dL (9-20); Calcium 8.1 mg/dL (8.4-10.2); Hemolysis Index 5
[2017-12-19] MEDS: CLEOCIN 600 MG/50 mL 600 MG/50 ML BAG IV SCH ×3 (06:00→21:24)
[2017-12-19 07:48] LABS: Anisocytosis 1+; Band Neutrophils # (Manual) 9.3 K/mm3; Basophils % (Manual) 0 % (0.0-1.8); Eosinophils % (Manual) 0 % (0.0-4.3); Myelocytes # (Manual) 0.5 K/mm3; Total Cells Counted 100
[2017-12-19 07:49] LABS: Platelet Estimate Consistent w Auto; Stomatocytes Few
[2017-12-19 07:50] LABS: Smudge Cells Few
[2017-12-19] MEDS: DIPRIVAN 10 MG/ML 1,000 MG/100 ML BOTTLE IV SCH ×3 (08:59→19:55)
[2017-12-19] MEDS: LEVAQUIN 750MG/150ML 750 MG/150 ML BAG IV SCH (09:02)
[2017-12-19] MEDS: VITAMIN B-1 PO SCH (09:09)
[2017-12-19] MEDS: SENOKOT S PO SCH ×2 (09:09→21:25)
[2017-12-19] MEDS: PEPCID PO SCH ×2 (09:13→21:25)
[2017-12-19] MEDS ORDERED: VASELINE LIP THERAPY TP PRN (09:58)
[2017-12-19] MEDS: LANTUS SUB-Q SCH (11:45)
[2017-12-19] MEDS: SODIUM CHLORIDE FLUSH SYRINGE 10 ML IV SCH ×2 (11:49→21:25)
[2017-12-19] MEDS: DILAUDID PO SCH ×3 (12:25→23:15)
[2017-12-19] MEDS ORDERED: LANTUS SUB-Q ONE (13:00)
--- NOTE | 2017-12-19 14:03 | Progress Note ---
Assessment and Plan Imp: 1. Haemophilus influenza pneumonia and bacteremia 2. Severe sepsis 3. ARDS 4. Acute respiratory failure, hypoxia 5. Hypernatremia Rec: 1. Cont. Levaquin versus H.flu; changed to Clinda to cover aspiration since there was vomiting around the time of intubation; given fevers and rising WBC will added Vancomycin pending repeat cultures, and if any further worsening can consider broadening GNR coverage but has been on Zosyn until 12/17 and levaquin since admit 2. Stop IVFs; keep as dry as possible at his point; increased free water to 300mL and monitor sodium; give another dose of Lasix to keep negative fluid balance 3. Wean FiO2; keep heavily sedated and skip spontaneous awakening trials for now pending improvement in oxygenation; FiO2 better -> start weaning P high 4. SCDs, GI PPx, TFs 5. F/u vasculitis work-up 6. Prognosis is guarded; no family present today CCt 31 minutes Subjective Date of service: 12/19/17 Principal diagnosis: ARDS Interval history: On APRV 50%. Heavily sedated. Cannot provide history. BP good. + Fevers. Active Medications Acetaminophen (Tylenol) 650 mg PO Q6H PRN PRN Reason: Pain, Mild (1-3),temp 100.5or> Last Admin: 12/19/17 03:15 Dose: 650 mg Albuterol (Proventil) 2.5 mg IH Q4HRT PRN PRN Reason: Shortness Of Breath Last Admin: 12/13/17 03:01 Dose: 2.5 mg Albuterol/Ipratropium (Duoneb *Not For Prn Use*) 1 ampul IH Q6HRT [facility] Last Admin: 12/19/17 08:30 Dose: 1 ampul Lipase/Protease/Amylase (Pancreaze Dr 10,500 Unit) 1 each FEEDTUBE PRN PRN PRN Reason: For Clogged Feeding Tube Dextrose (D50w (25gm) Syringe) 50 ml IV PRN PRN PRN Reason: Hypoglycemia Famotidine (Pepcid) 20 mg PO BID [facility] Last Admin: 12/19/17 09:13 Dose: 20 mg Fentanyl (Sublimaze) 50 mcg IV Q2H PRN PRN Reason: PAIN/AGITATION Last Admin: 12/18/17 15:02 Dose: 50 mcg Furosemide (Lasix) 20 mg IV ONCE ONE Stop: 12/19/17 14:00 Hydromorphone HCl (Dilaudid) 2 mg PO Q6HR [facility] Last Admin: 12/19/17 12:25 Dose: 2 mg Hydrophilic Ointment (Vaseline Lip Therapy) 1 applic TP Q2HR PRN PRN Reason: Dry Lips Hydrophilic Ointment (Vaseline Lip Therapy) 1 applic TP DIRECT PRN PRN Reason: DRY LIPS Levofloxacin/Dextrose (Levaquin 750mg/150ml) 750 mg in 150 mls @ 100 mls/hr IV Q24HR [facility]; Protocol Last Admin: 12/19/17 09:02 Dose: 100 mls/hr Fentanyl Citrate (Fentanyl Drip Premix) 2,000 mcg in 100 mls @ 5.058 mls/hr IV TITR [facility]; Protocol Last Admin: 12/19/17 08:51 Dose: 4 mcg/kg/hr, 20.23 mls/hr Midazolam HCl 100 mg/ Sodium (Chloride) 100 mls @ 2 mls/hr IV TITR [facility]; Protocol Last Titration: 12/19/17 10:03 Dose: 3 mg/hr, 3 mls/hr Clindamycin HCl (Cleocin 600 Mg/50 Ml) 600 mg in 50 mls @ 100 mls/hr IV Q8HR [facility] Stop: 12/20/17 13:59 Last Admin: 12/19/17 06:00 Dose: 100 mls/hr Propofol (Diprivan 10 Mg/Ml) 1,000 mg in 100 mls @ 3.264 mls/hr IV TITR [facility]; Protocol Last Titration: 12/19/17 13:51 Dose: 40 mcg/kg/min, 26.112 mls/hr Vancomycin HCl 1,500 mg/ (Sodium Chloride) 515 mls @ 333.333 mls/hr IV Q12H [facility] Last Admin: 12/19/17 04:43 Dose: 333.333 mls/hr Insulin Glargine (Lantus) 20 units SUB-Q DAILY [facility] Insulin Human Lispro (Humalog) 0 unit SUB-Q Q4H [facility]; Protocol Last Admin: 12/19/17 11:44 Dose: 10 unit Methylprednisolone Sodium Succinate (Solu-Medrol) 80 mg IV Q6H [facility] Last Admin: 12/19/17 08:47 Dose: 80 mg Morphine Sulfate (Morphine) 2 mg IV Q4H PRN PRN Reason: Pain, Moderate (4-6) Last Admin: 12/18/17 02:30 Dose: 2 mg Multi-Ingred Cream/Lotion/Oil/Oint (Artificial Tears Ophth Oint) 1 applic OU Q4HR PRN PRN Reason: Dry Eye(s) Ondansetron HCl (Zofran) 4 mg IV Q8H PRN PRN Reason: Nausea And Vomiting Senna/Docusate Sodium (Senokot S) 1 tab PO BID [facility] Last Admin: 12/19/17 09:09 Dose: 1 tab Simple Syrup (Simple Syrup) 15 ml FEEDTUBE PRN PRN PRN Reason: Hypoglycemia Simple Syrup (Simple Syrup) 30 ml FEEDTUBE PRN PRN PRN Reason: Hypoglycemia Sodium Bicarbonate (Sodium Bicarbonate) 325 mg FEEDTUBE PRN PRN PRN Reason: For Clogged Feeding Tube Sodium Chloride (Sodium Chloride Flush Syringe 10 Ml) 10 ml IV BID [facility] Last Admin: 12/19/17 11:49 Dose: 10 ml Sodium Chloride (Sodium Chloride Flush Syringe 10 Ml) 10 ml IV PRN PRN PRN Reason: LINE FLUSH Thiamine HCl (Vitamin B-1) 100 mg PO QDAY [facility] Last Admin: 12/19/17 09:09 Dose: 100 mg Vancomycin HCl (Vancomycin Pharmacy To Dose) 1 each IV PKCONSULT [facility]; Protocol Objective Vital Signs - 12hr 12/19/17 12/19/17 12/19/17 03:00 03:35 03:59 Temperature Pulse Rate 92 H Pulse Rate [ 93 H Anterior Bilateral Throughout] Pulse Rate [ From Monitor] Pulse Rate [ Left Dorsalis Pedis] Pulse Rate [ Left Radial] Pulse Rate [ Right Dorsalis Pedis] Respiratory 12 12 Rate Respiratory 13 Rate [Anterior Bilateral Throughout] Blood Pressure 101/60 O2 Sat by Pulse 96 Oximetry 12/19/17 12/19/17 12/19/17 04:00 05:00 05:22 Temperature 99.1 F Pulse Rate 88 80 102 H Pulse Rate [ Anterior Bilateral Throughout] Pulse Rate [ From Monitor] Pulse Rate [ Left Dorsalis Pedis] Pulse Rate [ Left Radial] Pulse Rate [ Right Dorsalis Pedis] Respiratory 13 12 Rate Respiratory Rate [Anterior Bilateral Throughout] Blood Pressure 114/63 109/64 109/64 O2 Sat by Pulse 98 98 99 Oximetry 12/19/17 12/19/17 12/19/17 06:00 07:00 07:35 Temperature Pulse Rate 81 76 Pulse Rate [ Anterior Bilateral Throughout] Pulse Rate [ 76 From Monitor] Pulse Rate [ Left Dorsalis Pedis] Pulse Rate [ Left Radial] Pulse Rate [ Right Dorsalis Pedis] Respiratory 12 12 14 Rate Respiratory Rate [Anterior Bilateral Throughout] Blood Pressure 106/56 110/59 O2 Sat by Pulse 98 98 96 Oximetry 12/19/17 12/19/17 12/19/17 08:00 08:35 09:00 Temperature 98.8 F Pulse Rate 76 98 H 75 Pulse Rate [ Anterior Bilateral Throughout] Pulse Rate [ From Monitor] Pulse Rate [ Left Dorsalis Pedis] Pulse Rate [ Left Radial] Pulse Rate [ Right Dorsalis Pedis] Respiratory 12 12 Rate Respiratory Rate [Anterior Bilateral Throughout] Blood Pressure 108/58 109/56 104/56 O2 Sat by Pulse 98 98 98 Oximetry 12/19/17 12/19/17 12/19/17 10:00 11:00 12:00 Temperature 99.9 F H Pulse Rate 123 H 99 H 91 H Pulse Rate [ Anterior Bilateral Throughout] Pulse Rate [ From Monitor] Pulse Rate [ Left Dorsalis Pedis] Pulse Rate [ Left Radial] Pulse Rate [ Right Dorsalis Pedis] Respiratory 12 12 12 Rate Respiratory Rate [Anterior Bilateral Throughout] Blood Pressure 128/75 117/69 116/68 O2 Sat by Pulse 100 98 96 Oximetry 12/19/17 12/19/17 12/19/17 12:05 12:32 13:00 Temperature Pulse Rate 94 H 124 H Pulse Rate [ Anterior Bilateral Throughout] Pulse Rate [ 96 H From Monitor] Pulse Rate [ 96 H Left Dorsalis Pedis] Pulse Rate [ 96 H Left Radial] Pulse Rate [ 96 H Right Dorsalis Pedis] Respiratory 16 Rate Respiratory Rate [Anterior Bilateral Throughout] Blood Pressure 116/68 116/68 O2 Sat by Pulse 100 100 Oximetry Constitutional: other (intubated, sedated) Eyes: non-icteric ENT: oropharynx moist Neck: supple Effort: normal Ascultation: Bilateral: other (coarse BS bilaterally) Cardiovascular: regular rate and rhythm, other (tachycardic) Gastrointestinal: normoactive bowel sounds, soft, non-tender, non-distended, other (obese) Integumentary: normal Extremities: no cyanosis, no edema, pink and warm Neurologic: unable to assess (due to sedation) Psychiatric: other (not able to assess) CBC and BMP: 12/19/17 04:07 12/19/17 04:07 ABG, PT/INR, D-dimer: ABG POC ABG pH 7.507 (7.35-7.45) H 12/19/17 05:15 POC ABG pCO2 42.3 (35-45) 12/19/17 05:15 POC ABG pO2 83 (80-105) 12/19/17 05:15 POC ABG HCO3 33.5 12/19/17 05:15 POC ABG Total CO2 35 12/19/17 05:15 POC ABG O2 Sat 97 12/19/17 05:15 PT/INR, D-dimer PT 14.9 Sec. (12.2-14.9) 12/15/17 04:05 INR 1.11 (0.87-1.13) 12/15/17 04:05 Abnormal lab findings: Abnormal Labs 12/12/17 12/12/17 12/12/17 18:57 19:02 19:02 WBC RBC Hgb Hct MCV 96 H MCH 34 H MCHC 35 H Plt Count 46 L Seg Neuts % (Manual) 77.0 H Lymphocytes % (Manual) 13.0 L Monocytes % (Manual) Nucleated RBC % Seg Neutrophils # Man Lymphocytes # (Manual) 0.9 L Monocytes # (Manual) APTT POC ABG pH POC ABG pCO2 POC ABG pO2 VBG pH Sodium Chloride Carbon Dioxide BUN Creatinine Glucose POC Glucose 321 H Lactic Acid 4.00 H* Calcium Total Bilirubin AST ALT Albumin Amylase Lipase Urine WBC (Auto) 12/12/17 12/12/17 12/12/17 19:02 19:18 20:55 WBC RBC Hgb Hct MCV MCH MCHC Plt Count Seg Neuts % (Manual) Lymphocytes % (Manual) Monocytes % (Manual) Nucleated RBC % Seg Neutrophils # Man Lymphocytes # (Manual) Monocytes # (Manual) APTT POC ABG pH POC ABG pCO2 POC ABG pO2 VBG pH 7.472 H Sodium 124 L Chloride 80.0 L Carbon Dioxide 20 L BUN Creatinine Glucose 382 H POC Glucose 283 H Lactic Acid Calcium 8.1 L Total Bilirubin 4.60 H AST 93 H ALT 112 H Albumin 2.5 L Amylase Lipase Urine WBC (Auto) 12/12/17 12/13/17 12/13/17 21:41 00:45 01:29 WBC RBC Hgb Hct MCV MCH MCHC Plt Count Seg Neuts % (Manual) Lymphocytes % (Manual) Monocytes % (Manual) Nucleated RBC % Seg Neutrophils # Man Lymphocytes # (Manual) Monocytes # (Manual) APTT POC ABG pH POC ABG pCO2 POC ABG pO2 VBG pH Sodium Chloride Carbon Dioxide BUN Creatinine Glucose POC Glucose Lactic Acid 4.20 H* 2.70 H* 3.30 H* Calcium Total Bilirubin AST ALT Albumin Amylase Lipase Urine WBC (Auto) 12/13/17 12/13/17 12/13/17 02:19 03:44 05:58 WBC RBC Hgb Hct MCV 97 H MCH 34 H MCHC 35 H Plt Count 41 L Seg Neuts % (Manual) Lymphocytes % (Manual) 8.0 L Monocytes % (Manual) 8.0 H Nucleated RBC % Seg Neutrophils # Man Lymphocytes # (Manual) 0.6 L Monocytes # (Manual) APTT POC ABG pH 7.334 L POC ABG pCO2 POC ABG pO2 43 L VBG pH Sodium Chloride Carbon Dioxide BUN Creatinine Glucose POC Glucose Lactic Acid 2.60 H* Calcium Total Bilirubin AST ALT Albumin Amylase Lipase Urine WBC (Auto) 12/13/17 12/13/17 12/13/17 05:58 05:58 05:58 WBC RBC Hgb Hct MCV MCH MCHC Plt Count Seg Neuts % (Manual) Lymphocytes % (Manual) Monocytes % (Manual) Nucleated RBC % Seg Neutrophils # Man Lymphocytes # (Manual) Monocytes # (Manual) APTT POC ABG pH POC ABG pCO2 POC ABG pO2 VBG pH Sodium 132 L D Chloride 90.0 L Carbon Dioxide 20 L BUN Creatinine Glucose 346 H POC Glucose 298 H Lactic Acid 4.50 H* Calcium 8.2 L Total Bilirubin AST ALT Albumin Amylase Lipase Urine WBC (Auto) 12/13/17 12/13/17 12/13/17 06:27 09:42 11:47 WBC RBC Hgb Hct MCV MCH MCHC Plt Count Seg Neuts % (Manual) Lymphocytes % (Manual) Monocytes % (Manual) Nucleated RBC % Seg Neutrophils # Man Lymphocytes # (Manual) Monocytes # (Manual) APTT POC ABG pH 7.267 L 7.298 L POC ABG pCO2 50.4 H 51.3 H POC ABG pO2 47 L 43 L VBG pH Sodium Chloride Carbon Dioxide BUN Creatinine Glucose POC Glucose 376 H Lactic Acid Calcium Total Bilirubin AST ALT Albumin Amylase Lipase Urine WBC (Auto) 12/13/17 12/13/17 12/13/17 12:03 13:47 13:47 WBC RBC Hgb Hct MCV MCH MCHC Plt Count Seg Neuts % (Manual) Lymphocytes % (Manual) Monocytes % (Manual) Nucleated RBC % Seg Neutrophils # Man Lymphocytes # (Manual) Monocytes # (Manual) APTT POC ABG pH 7.264 L POC ABG pCO2 54.9 H POC ABG pO2 55 L VBG pH Sodium Chloride Carbon Dioxide BUN Creatinine Glucose POC Glucose Lactic Acid 2.80 H* Calcium Total Bilirubin AST ALT Albumin Amylase 20 L Lipase 9 L Urine WBC (Auto) 12/13/17 12/13/17 12/13/17 15:36 17:39 21:47 WBC RBC Hgb Hct MCV MCH MCHC Plt Count Seg Neuts % (Manual) Lymphocytes % (Manual) Monocytes % (Manual) Nucleated RBC % Seg Neutrophils # Man Lymphocytes # (Manual) Monocytes # (Manual) APTT POC ABG pH 7.229 L 7.225 L POC ABG pCO2 60.9 H 66.3 H POC ABG pO2 42 L 41 L VBG pH Sodium Chloride Carbon Dioxide BUN Creatinine Glucose POC Glucose 289 H Lactic Acid Calcium Total Bilirubin AST ALT Albumin Amylase Lipase Urine WBC (Auto) 12/13/17 12/14/17 12/14/17 22:19 02:03 05:16 WBC RBC Hgb Hct MCV MCH MCHC Plt Count Seg Neuts % (Manual) Lymphocytes % (Manual) Monocytes % (Manual) Nucleated RBC % Seg Neutrophils # Man Lymphocytes # (Manual) Monocytes # (Manual) APTT POC ABG pH 7.247 L POC ABG pCO2 61.2 H POC ABG pO2 53 L VBG pH Sodium Chloride Carbon Dioxide BUN Creatinine Glucose POC Glucose 274 H 295 H Lactic Acid Calcium Total Bilirubin AST ALT Albumin Amylase Lipase Urine WBC (Auto) 12/14/17 12/14/17 12/14/17 05:32 12:04 16:22 WBC RBC Hgb Hct MCV MCH MCHC Plt Count Seg Neuts % (Manual) Lymphocytes % (Manual) Monocytes % (Manual) Nucleated RBC % Seg Neutrophils # Man Lymphocytes # (Manual) Monocytes # (Manual) APTT POC ABG pH POC ABG pCO2 POC ABG pO2 VBG pH Sodium Chloride Carbon Dioxide BUN Creatinine Glucose POC Glucose 230 H 241 H 231 H Lactic Acid Calcium Total Bilirubin AST ALT Albumin Amylase Lipase Urine WBC (Auto) 12/14/17 12/15/17 12/15/17 21:29 02:29 03:25 WBC RBC Hgb Hct MCV MCH MCHC Plt Count Seg Neuts % (Manual) Lymphocytes % (Manual) Monocytes % (Manual) Nucleated RBC % Seg Neutrophils # Man Lymphocytes # (Manual) Monocytes # (Manual) APTT POC ABG pH 7.330 L POC ABG pCO2 55.3 H POC ABG pO2 59 L VBG pH Sodium Chloride Carbon Dioxide BUN Creatinine Glucose POC Glucose 258 H 246 H Lactic Acid Calcium Total Bilirubin AST ALT Albumin Amylase Lipase Urine WBC (Auto) 12/15/17 12/15/17 12/15/17 04:05 04:05 04:05 WBC 15.0 H RBC 3.40 L Hgb 11.3 L D Hct 33.8 L D MCV 100 H MCH 33 H MCHC Plt Count 48 L Seg Neuts % (Manual) Lymphocytes % (Manual) 3.0 L Monocytes % (Manual) Nucleated RBC % 2.0 H Seg Neutrophils # Man Lymphocytes # (Manual) 0.5 L Monocytes # (Manual) 0.9 H APTT 20.9 L POC ABG pH POC ABG pCO2 POC ABG pO2 VBG pH Sodium Chloride Carbon Dioxide BUN 27 H Creatinine Glucose 258 H POC Glucose Lactic Acid Calcium 8.1 L Total Bilirubin AST ALT Albumin Amylase Lipase Urine WBC (Auto) 12/15/17 12/15/17 12/15/17 05:32 11:17 14:59 WBC RBC Hgb Hct MCV MCH MCHC Plt Count Seg Neuts % (Manual) Lymphocytes % (Manual) Monocytes % (Manual) Nucleated RBC % Seg Neutrophils # Man Lymphocytes # (Manual) Monocytes # (Manual) APTT POC ABG pH POC ABG pCO2 POC ABG pO2 VBG pH Sodium Chloride Carbon Dioxide BUN Creatinine Glucose POC Glucose 247 H 268 H 233 H Lactic Acid Calcium Total Bilirubin AST ALT Albumin Amylase Lipase Urine WBC (Auto) 12/15/17 12/15/17 12/15/17 17:00 18:59 21:37 WBC RBC Hgb Hct MCV MCH MCHC Plt Count Seg Neuts % (Manual) Lymphocytes % (Manual) Monocytes % (Manual) Nucleated RBC % Seg Neutrophils # Man Lymphocytes # (Manual) Monocytes # (Manual) APTT POC ABG pH POC ABG pCO2 POC ABG pO2 VBG pH Sodium Chloride Carbon Dioxide BUN Creatinine Glucose POC Glucose 195 H 208 H Lactic Acid Calcium Total Bilirubin AST ALT Albumin Amylase Lipase Urine WBC (Auto) 38.0 H 12/16/17 12/16/17 12/16/17 03:17 03:33 04:18 WBC 16.4 H RBC 3.50 L Hgb 11.3 L Hct 35.4 L MCV 101 H MCH MCHC Plt Count 54 L Seg Neuts % (Manual) Lymphocytes % (Manual) Monocytes % (Manual) Nucleated RBC % Seg Neutrophils # Man Lymphocytes # (Manual) Monocytes # (Manual) APTT POC ABG pH POC ABG pCO2 47.7 H POC ABG pO2 VBG pH Sodium Chloride Carbon Dioxide BUN Creatinine Glucose POC Glucose 227 H Lactic Acid Calcium Total Bilirubin AST ALT Albumin Amylase Lipase Urine WBC (Auto) 12/16/17 12/16/17 12/16/17 04:18 05:08 10:01 WBC RBC Hgb Hct MCV MCH MCHC Plt Count Seg Neuts % (Manual) Lymphocytes % (Manual) Monocytes % (Manual) Nucleated RBC % Seg Neutrophils # Man Lymphocytes # (Manual) Monocytes # (Manual) APTT POC ABG pH POC ABG pCO2 POC ABG pO2 VBG pH Sodium 147 H Chloride 107.4 H Carbon Dioxide BUN 28 H Creatinine Glucose 240 H POC Glucose 227 H 190 H Lactic Acid Calcium 8.3 L Total Bilirubin AST ALT Albumin Amylase Lipase Urine WBC (Auto) 12/16/17 12/16/17 12/16/17 14:15 17:51 21:14 WBC RBC Hgb Hct MCV MCH MCHC Plt Count Seg Neuts % (Manual) Lymphocytes % (Manual) Monocytes % (Manual) Nucleated RBC % Seg Neutrophils # Man Lymphocytes # (Manual) Monocytes # (Manual) APTT POC ABG pH POC ABG pCO2 POC ABG pO2 VBG pH Sodium Chloride Carbon Dioxide BUN Creatinine Glucose POC Glucose 279 H 272 H 260 H Lactic Acid Calcium Total Bilirubin AST ALT Albumin Amylase Lipase Urine WBC (Auto) 12/17/17 12/17/17 12/17/17 02:41 04:28 04:28 WBC 19.1 H RBC 3.50 L Hgb 11.4 L Hct 35.3 L MCV 101 H MCH 33 H MCHC Plt Count 65 L Seg Neuts % (Manual) Lymphocytes % (Manual) Monocytes % (Manual) Nucleated RBC % Seg Neutrophils # Man Lymphocytes # (Manual) Monocytes # (Manual) APTT POC ABG pH POC ABG pCO2 POC ABG pO2 VBG pH Sodium 153 H Chloride 111.2 H Carbon Dioxide 31 H BUN 28 H Creatinine Glucose 248 H POC Glucose 300 H Lactic Acid Calcium Total Bilirubin AST ALT Albumin Amylase Lipase Urine WBC (Auto) 12/17/17 12/17/17 12/17/17 05:15 05:38 10:16 WBC RBC Hgb Hct MCV MCH MCHC Plt Count Seg Neuts % (Manual) Lymphocytes % (Manual) Monocytes % (Manual) Nucleated RBC % Seg Neutrophils # Man Lymphocytes # (Manual) Monocytes # (Manual) APTT POC ABG pH POC ABG pCO2 50.3 H POC ABG pO2 120 H VBG pH Sodium Chloride Carbon Dioxide BUN Creatinine Glucose POC Glucose 231 H 196 H Lactic Acid Calcium Total Bilirubin AST ALT Albumin Amylase Lipase Urine WBC (Auto) 12/17/17 12/17/17 12/17/17 14:22 18:14 21:35 WBC RBC Hgb Hct MCV MCH MCHC Plt Count Seg Neuts % (Manual) Lymphocytes % (Manual) Monocytes % (Manual) Nucleated RBC % Seg Neutrophils # Man Lymphocytes # (Manual) Monocytes # (Manual) APTT POC ABG pH POC ABG pCO2 POC ABG pO2 VBG pH Sodium Chloride Carbon Dioxide BUN Creatinine Glucose POC Glucose 234 H 215 H 159 H Lactic Acid Calcium Total Bilirubin AST ALT Albumin Amylase Lipase Urine WBC (Auto) 12/18/17 12/18/17 12/18/17 00:53 02:58 06:03 WBC RBC Hgb Hct MCV MCH MCHC Plt Count Seg Neuts % (Manual) Lymphocytes % (Manual) Monocytes % (Manual) Nucleated RBC % Seg Neutrophils # Man Lymphocytes # (Manual) Monocytes # (Manual) APTT POC ABG pH POC ABG pCO2 56.4 H POC ABG pO2 46 L VBG pH Sodium Chloride Carbon Dioxide BUN Creatinine Glucose POC Glucose 176 H 143 H Lactic Acid Calcium Total Bilirubin AST ALT Albumin Amylase Lipase Urine WBC (Auto) 12/18/17 12/18/17 12/18/17 07:59 09:20 09:20 WBC 27.4 H RBC 3.57 L Hgb 11.4 L Hct MCV 101 H MCH MCHC Plt Count 64 L Seg Neuts % (Manual) Lymphocytes % (Manual) Monocytes % (Manual) Nucleated RBC % Seg Neutrophils # Man Lymphocytes # (Manual) Monocytes # (Manual) APTT POC ABG pH POC ABG pCO2 POC ABG pO2 VBG pH Sodium 152 H Chloride 107.9 H Carbon Dioxide 34 H BUN 23 H Creatinine 0.7 L Glucose 181 H POC Glucose 197 H Lactic Acid Calcium Total Bilirubin AST ALT Albumin Amylase Lipase Urine WBC (Auto) 12/18/17 12/18/17 12/18/17 10:22 15:03 18:15 WBC RBC Hgb Hct MCV MCH MCHC Plt Count Seg Neuts % (Manual) Lymphocytes % (Manual) Monocytes % (Manual) Nucleated RBC % Seg Neutrophils # Man Lymphocytes # (Manual) Monocytes # (Manual) APTT POC ABG pH POC ABG pCO2 POC ABG pO2 VBG pH Sodium Chloride Carbon Dioxide BUN Creatinine Glucose POC Glucose 195 H 225 H 238 H Lactic Acid Calcium Total Bilirubin AST ALT Albumin Amylase Lipase Urine WBC (Auto) 12/18/17 12/18/17 12/19/17 18:29 21:53 00:18 WBC RBC Hgb Hct MCV MCH MCHC Plt Count Seg Neuts % (Manual) Lymphocytes % (Manual) Monocytes % (Manual) Nucleated RBC % Seg Neutrophils # Man Lymphocytes # (Manual) Monocytes # (Manual) APTT POC ABG pH 7.476 H POC ABG pCO2 50.4 H POC ABG pO2 158 H VBG pH Sodium Chloride Carbon Dioxide BUN Creatinine Glucose POC Glucose 231 H 263 H Lactic Acid Calcium Total Bilirubin AST ALT Albumin Amylase Lipase Urine WBC (Auto) 12/19/17 12/19/17 12/19/17 02:09 04:07 04:07 WBC 25.9 H RBC 3.25 L Hgb 10.6 L Hct 32.8 L MCV 101 H MCH 33 H MCHC Plt Count 67 L Seg Neuts % (Manual) Lymphocytes % (Manual) 4.0 L Monocytes % (Manual) Nucleated RBC % Seg Neutrophils # Man 14.8 H Lymphocytes # (Manual) 1.0 L Monocytes # (Manual) APTT POC ABG pH POC ABG pCO2 POC ABG pO2 VBG pH Sodium 148 H Chloride Carbon Dioxide BUN 31 H Creatinine Glucose 314 H POC Glucose 300 H Lactic Acid Calcium 8.1 L Total Bilirubin AST ALT Albumin Amylase Lipase Urine WBC (Auto) 12/19/17 12/19/17 12/19/17 05:15 05:41 07:57 WBC RBC Hgb Hct MCV MCH MCHC Plt Count Seg Neuts % (Manual) Lymphocytes % (Manual) Monocytes % (Manual) Nucleated RBC % Seg Neutrophils # Man Lymphocytes # (Manual) Monocytes # (Manual) APTT POC ABG pH 7.507 H POC ABG pCO2 POC ABG pO2 VBG pH Sodium Chloride Carbon Dioxide BUN Creatinine Glucose POC Glucose 331 H 307 H Lactic Acid Calcium Total Bilirubin AST ALT Albumin Amylase Lipase Urine WBC (Auto) 12/19/17 10:21 WBC RBC Hgb Hct MCV MCH MCHC Plt Count Seg Neuts % (Manual) Lymphocytes % (Manual) Monocytes % (Manual) Nucleated RBC % Seg Neutrophils # Man Lymphocytes # (Manual) Monocytes # (Manual) APTT POC ABG pH POC ABG pCO2 POC ABG pO2 VBG pH Sodium Chloride Carbon Dioxide BUN Creatinine Glucose POC Glucose 358 H Lactic Acid Calcium Total Bilirubin AST ALT Albumin Amylase Lipase Urine WBC (Auto) Chest x-ray: report reviewed, image reviewed (no change)
[2017-12-19] MEDS ORDERED: LASIX IV ONE (15:00)
--- NOTE | 2017-12-19 15:31 | Progress Note ---
Assessment and Plan Acute hypoxic respiratory failure - suspected due to ARDS/aspiration pneumonia: on iv clindamycin/levaquin/ vancomycin Suspected ARDS: - Pulmonology is following, on vent Sepsis with Aspiration pneumonia ?, poa: - on IV antibiotics, repeat blood cx negative - cont to spike fever, consulted ID, will follow recommendation Alcohol abuse: sedated, cont iv thiamine Hypotension resolved with ivfs and iv steroids Thrombocytopenia, - severe most likely due to sepsis: hold heparin Hypernatremia - cont free water with TF, monitor BMP, improving DM type 2- cont long acting and SSI, increased lentus to 20 unit daily DVT prophylaxis: scd only, due to thrombocytopenia Brief History: Patient is a 47 yo man with a history of tobacco dependency, alcohol abuse, dm type 2, hypertension and asthma who presented to [facility] ED with SOB and found to be severely hypoxic, failed bipap and was intubated. There is report of n/v during and after intubation. Hospitalist Physical GEN: Ill-appearing HEENT: NCAT, pupils react, ET tube, NG tube in place NECK: supple, CVS/HEART:regular tachy NORMAL S1S2, pulses present bilaterally CHEST/LUNGS: Symmetrical chest expansion, good air entry bilaterally GI/Abdomen: soft, distended, good bowel sounds, no guarding or rebound /Bladder: condom cath in place EXT/Skin: Dependent edema MSK: sedated Neuro: sedated Psych: sedated Subjective Date of service: 12/19/17 Principal diagnosis: ARDS Interval history: Pt seen and examined Remained intubated and sedated Tolerating tube feeding continue to have fever Objective - Constitutional Vitals: Vital Signs - 12hr 12/19/17 12/19/17 12/19/17 03:35 03:59 04:00 Temperature 99.1 F Pulse Rate 88 Pulse Rate [ 93 H Anterior Bilateral Throughout] Pulse Rate [ From Monitor] Pulse Rate [ Left Dorsalis Pedis] Pulse Rate [ Left Radial] Pulse Rate [ Right Dorsalis Pedis] Respiratory 12 13 Rate Respiratory 13 Rate [Anterior Bilateral Throughout] Blood Pressure 114/63 O2 Sat by Pulse 98 Oximetry 12/19/17 12/19/17 12/19/17 05:00 05:22 06:00 Temperature Pulse Rate 80 102 H 81 Pulse Rate [ Anterior Bilateral Throughout] Pulse Rate [ From Monitor] Pulse Rate [ Left Dorsalis Pedis] Pulse Rate [ Left Radial] Pulse Rate [ Right Dorsalis Pedis] Respiratory 12 12 Rate Respiratory Rate [Anterior Bilateral Throughout] Blood Pressure 109/64 109/64 106/56 O2 Sat by Pulse 98 99 98 Oximetry 12/19/17 12/19/17 12/19/17 07:00 07:35 08:00 Temperature 98.8 F Pulse Rate 76 76 Pulse Rate [ Anterior Bilateral Throughout] Pulse Rate [ 76 From Monitor] Pulse Rate [ Left Dorsalis Pedis] Pulse Rate [ Left Radial] Pulse Rate [ Right Dorsalis Pedis] Respiratory 12 14 12 Rate Respiratory Rate [Anterior Bilateral Throughout] Blood Pressure 110/59 108/58 O2 Sat by Pulse 98 96 98 Oximetry 12/19/17 12/19/17 12/19/17 08:35 09:00 10:00 Temperature Pulse Rate 98 H 75 123 H Pulse Rate [ Anterior Bilateral Throughout] Pulse Rate [ From Monitor] Pulse Rate [ Left Dorsalis Pedis] Pulse Rate [ Left Radial] Pulse Rate [ Right Dorsalis Pedis] Respiratory 12 12 Rate Respiratory Rate [Anterior Bilateral Throughout] Blood Pressure 109/56 104/56 128/75 O2 Sat by Pulse 98 98 100 Oximetry 12/19/17 12/19/17 12/19/17 11:00 12:00 12:05 Temperature 99.9 F H Pulse Rate 99 H 91 H 94 H Pulse Rate [ Anterior Bilateral Throughout] Pulse Rate [ From Monitor] Pulse Rate [ Left Dorsalis Pedis] Pulse Rate [ Left Radial] Pulse Rate [ Right Dorsalis Pedis] Respiratory 12 12 Rate Respiratory Rate [Anterior Bilateral Throughout] Blood Pressure 117/69 116/68 116/68 O2 Sat by Pulse 98 96 100 Oximetry 12/19/17 12/19/17 12:32 13:00 Temperature Pulse Rate 124 H Pulse Rate [ Anterior Bilateral Throughout] Pulse Rate [ 96 H From Monitor] Pulse Rate [ 96 H Left Dorsalis Pedis] Pulse Rate [ 96 H Left Radial] Pulse Rate [ 96 H Right Dorsalis Pedis] Respiratory 16 Rate Respiratory Rate [Anterior Bilateral Throughout] Blood Pressure 116/68 O2 Sat by Pulse 100 Oximetry - Labs CBC & Chem 7: 12/19/17 04:07 12/19/17 04:07 Labs: Abnormal lab results 12/18/17 12/18/17 12/18/17 Range/Units 18:15 18:29 21:53 WBC (4.5-11.0) K/mm3 RBC (3.65-5.03) M/mm3 Hgb (11.8-15.2) gm/dl Hct (35.5-45.6) % MCV (84-94) fl MCH (28-32) pg Plt Count (140-440) K/mm3 Lymphocytes % (Manual) (13.4-35.0) % Seg Neutrophils # Man (1.8-7.7) K/mm3 Lymphocytes # (Manual) (1.2-5.4) K/mm3 POC ABG pH 7.476 H (7.35-7.45) POC ABG pCO2 50.4 H (35-45) POC ABG pO2 158 H (80-105) Sodium (137-145) mmol/L BUN (9-20) mg/dL Glucose (75-100) mg/dL POC Glucose 238 H 231 H (70-105) Calcium (8.4-10.2) mg/dL 12/19/17 12/19/17 12/19/17 Range/Units 00:18 02:09 04:07 WBC 25.9 H (4.5-11.0) K/mm3 RBC 3.25 L (3.65-5.03) M/mm3 Hgb 10.6 L (11.8-15.2) gm/dl Hct 32.8 L (35.5-45.6) % MCV 101 H (84-94) fl MCH 33 H (28-32) pg Plt Count 67 L (140-440) K/mm3 Lymphocytes % (Manual) 4.0 L (13.4-35.0) % Seg Neutrophils # Man 14.8 H (1.8-7.7) K/mm3 Lymphocytes # (Manual) 1.0 L (1.2-5.4) K/mm3 POC ABG pH (7.35-7.45) POC ABG pCO2 (35-45) POC ABG pO2 (80-105) Sodium (137-145) mmol/L BUN (9-20) mg/dL Glucose (75-100) mg/dL POC Glucose 263 H 300 H (70-105) Calcium (8.4-10.2) mg/dL 12/19/17 12/19/17 12/19/17 Range/Units 04:07 05:15 05:41 WBC (4.5-11.0) K/mm3 RBC (3.65-5.03) M/mm3 Hgb (11.8-15.2) gm/dl Hct (35.5-45.6) % MCV (84-94) fl MCH (28-32) pg Plt Count (140-440) K/mm3 Lymphocytes % (Manual) (13.4-35.0) % Seg Neutrophils # Man (1.8-7.7) K/mm3 Lymphocytes # (Manual) (1.2-5.4) K/mm3 POC ABG pH 7.507 H (7.35-7.45) POC ABG pCO2 (35-45) POC ABG pO2 (80-105) Sodium 148 H (137-145) mmol/L BUN 31 H (9-20) mg/dL Glucose 314 H (75-100) mg/dL POC Glucose 331 H (70-105) Calcium 8.1 L (8.4-10.2) mg/dL 12/19/17 12/19/17 12/19/17 Range/Units 07:57 10:21 14:48 WBC (4.5-11.0) K/mm3 RBC (3.65-5.03) M/mm3 Hgb (11.8-15.2) gm/dl Hct (35.5-45.6) % MCV (84-94) fl MCH (28-32) pg Plt Count (140-440) K/mm3 Lymphocytes % (Manual) (13.4-35.0) % Seg Neutrophils # Man (1.8-7.7) K/mm3 Lymphocytes # (Manual) (1.2-5.4) K/mm3 POC ABG pH (7.35-7.45) POC ABG pCO2 (35-45) POC ABG pO2 (80-105) Sodium (137-145) mmol/L BUN (9-20) mg/dL Glucose (75-100) mg/dL POC Glucose 307 H 358 H 327 H (70-105) Calcium (8.4-10.2) mg/dL
[2017-12-19] MEDS: SODIUM CHLORIDE FLUSH SYRINGE 10 ML IV PRN (19:36)
[2017-12-19] MEDS: MIDAZOLAM 100 MG in NACL 0.9% 80 ML IV SCH (19:56)
[2017-12-19] MEDS: MORPHINE IV PRN (20:09)
[2017-12-20] MEDS: VASELINE LIP THERAPY TP PRN ×2 (00:14→21:03)
[2017-12-20] MEDS: DIPRIVAN 10 MG/ML 1,000 MG/100 ML BOTTLE IV SCH ×5 (00:14→11:32)
[2017-12-20] MEDS: DUONEB *Not for PRN Use IH SCH ×4 (02:05→19:32)
[2017-12-20] MEDS: HumaLOG SUB-Q SCH ×6 (02:59→23:34)
[2017-12-20] MEDS: DILAUDID IV PRN ×5 (04:33→23:00)
[2017-12-20] MEDS: VANCOMYCIN 1,500 MG in NACL 0.9% 500 ML 500 ML IV SCH ×2 (04:33→17:04)
[2017-12-20 04:40] LABS: Hematocrit 32.9 % (35.5-45.6); Hemoglobin 10.6 gm/dl (11.8-15.2); Mean Corpuscular HGB Conc 32 % (32-34); Mean Corpuscular Hemoglobin 33 pg (28-32); Mean Corpuscular Volume 101 fl (84-94); Red Blood Count 3.26 M/mm3 (3.65-5.03); Red Cell Distribution Width 13.6 % (13.2-15.2)
[2017-12-20 04:47] LABS: BUN/Creatinine Ratio 50; Blood Urea Nitrogen 30 mg/dL (9-20); Calcium 8.5 mg/dL (8.4-10.2); Hemolysis Index 9; Platelet Count 78 K/mm3 (140-440)
[2017-12-20] MEDS: DILAUDID PO SCH ×4 (05:17→23:33)
[2017-12-20] MEDS: CLEOCIN 600 MG/50 mL 600 MG/50 ML BAG IV SCH (05:18)
[2017-12-20 06:10] LABS: Total Cells Counted 100
[2017-12-20 06:11] LABS: Anisocytosis 1+; Band Neutrophils # (Manual) 2.5 K/mm3; Basophils % (Manual) 0 % (0.0-1.8); Eosinophils % (Manual) 0 % (0.0-4.3); Target Cells Few
[2017-12-20 06:12] LABS: Platelet Estimate Consistent w Auto; Stomatocytes Few
[2017-12-20] MEDS: SENOKOT S PO SCH ×3 (09:11→21:02)
[2017-12-20] MEDS: VITAMIN B-1 PO SCH (09:11)
[2017-12-20] MEDS: PEPCID PO SCH ×2 (09:11→21:02)
[2017-12-20] MEDS: LEVAQUIN 750MG/150ML 750 MG/150 ML BAG IV SCH (09:11)
[2017-12-20] MEDS: SODIUM CHLORIDE FLUSH SYRINGE 10 ML IV SCH ×2 (09:12→21:03)
[2017-12-20] MEDS ORDERED: LANTUS SUB-Q SCH (10:00)
--- NOTE | 2017-12-20 10:34 | Consultation ---
History of Present Illness - Reason for Consult Consult date: 12/20/17 persistent fever Requesting physician: GIDEON PRESCOTT - History of Present Illness 47 years old male with history of asthma, tobacco use and previous history of diabetes, stopped his diabetes meds 6 months ago because his A1C was normal. Patient is currently intubated on the ventilator unable to provide any history. He was taken from review of hospital chart. Patient was admitted on 2017 due to 3 days history of worsening shortness of breath, cough and intermittent fever. The initial interview, patient was having nonproductive cough. Patient did not receive his influenza vaccine this season. Patient drinks alcohol in a daily basis. In the ED, initial temperature was 103, heart rate 1:30, respiration 30, O2 sat 92%, blood pressure 119/75. Initial white count 6.9. Hemoglobin 14.2. Platelets 46. Lactic acid 4. Creatinine 1. AST 93. ALT 112. Glucose 382. Urinalysis negative. Influenza antigen negative. Chest x-ray showed dense right-sided infiltrate and left lower lobe infiltrate. Upon admission he was started on Zosyn IV however he kept having fever and antibiotics were changed to clindamycin, vancomycin and Levaquin. Microbiology: Blood cultures: 12/12 H influenza 1 of 4 bottles 12/15 neg 12/17 ngtd Respiratory cultures: 12/13 usual resp angelika Current Antimicrobials: vanco 12/17 Levaquin 12/13 Clindamycin 12/17 Previous Antimicrobials: Zosyn Past History Past Medical History: other (asthma) Past Surgical History: No surgical history Social history: alcohol abuse Family history: no significant family history Medications and Allergies Allergies Allergy/AdvReac Type Severity Reaction Status Date / Time [id number]-Glm Reductase Allergy Unknown Verified 12/12/17 20:09 Inhibitor Home Medications Medication Instructions Recorded Confirmed Last Taken Type No Known Home Medications [No 12/13/17 12/13/17 Unknown History Reported Home Medications] Active Meds: Active Medications Acetaminophen (Tylenol) 650 mg PO Q6H PRN PRN Reason: Pain, Mild (1-3),temp 100.5or> Last Admin: 12/19/17 03:15 Dose: 650 mg Albuterol (Proventil) 2.5 mg IH Q4HRT PRN PRN Reason: Shortness Of Breath Last Admin: 12/13/17 03:01 Dose: 2.5 mg Albuterol/Ipratropium (Duoneb *Not For Prn Use*) 1 ampul IH Q6HRT [facility] Last Admin: 12/20/17 08:21 Dose: 1 ampul Lipase/Protease/Amylase (Pancreaze Dr 10,500 Unit) 1 each FEEDTUBE PRN PRN PRN Reason: For Clogged Feeding Tube Bisacodyl (Dulcolax) 10 mg WI QDAY [facility] Dextrose (D50w (25gm) Syringe) 50 ml IV PRN PRN PRN Reason: Hypoglycemia Famotidine (Pepcid) 20 mg PO BID [facility] Last Admin: 12/20/17 09:11 Dose: 20 mg Hydralazine HCl (Apresoline) 10 mg IV Q4HR PRN PRN Reason: SBP>170 Hydromorphone HCl (Dilaudid) 2 mg PO Q6HR [facility] Last Admin: 12/20/17 05:17 Dose: 2 mg Hydromorphone HCl (Dilaudid) 1 mg IV Q4H PRN PRN Reason: Pain , Severe (7-10) Last Admin: 12/20/17 04:33 Dose: 1 mg Hydrophilic Ointment (Vaseline Lip Therapy) 1 applic TP Q2HR PRN PRN Reason: Dry Lips Last Admin: 12/20/17 00:14 Dose: 1 applic Hydrophilic Ointment (Vaseline Lip Therapy) 1 applic TP DIRECT PRN PRN Reason: DRY LIPS Levofloxacin/Dextrose (Levaquin 750mg/150ml) 750 mg in 150 mls @ 100 mls/hr IV Q24HR [facility]; Protocol Last Admin: 12/20/17 09:11 Dose: 100 mls/hr Fentanyl Citrate (Fentanyl Drip Premix) 2,000 mcg in 100 mls @ 5.058 mls/hr IV TITR [facility]; Protocol Last Titration: 12/19/17 12:25 Dose: 0 mcg/kg/hr, 0 mls/hr Midazolam HCl 100 mg/ Sodium (Chloride) 100 mls @ 2 mls/hr IV TITR [facility]; Protocol Last Titration: 12/19/17 23:27 Dose: 5 mg/hr, 5 mls/hr Clindamycin HCl (Cleocin 600 Mg/50 Ml) 600 mg in 50 mls @ 100 mls/hr IV Q8HR [facility] Stop: 12/20/17 13:59 Last Admin: 12/20/17 05:18 Dose: 100 mls/hr Propofol (Diprivan 10 Mg/Ml) 1,000 mg in 100 mls @ 3.264 mls/hr IV TITR [facility]; Protocol Last Admin: 12/20/17 08:41 Dose: 50 mcg/kg/min, 32.64 mls/hr Vancomycin HCl 1,500 mg/ (Sodium Chloride) 515 mls @ 333.333 mls/hr IV Q12H [facility] Last Admin: 12/20/17 04:33 Dose: 333.333 mls/hr Insulin Glargine (Lantus) 20 units SUB-Q DAILY [facility] Last Admin: 12/20/17 09:11 Dose: 20 units Insulin Human Lispro (Humalog) 0 unit SUB-Q Q4H [facility]; Protocol Last Admin: 12/20/17 06:06 Dose: 8 unit Magnesium Citrate (Citrate Of Magnesia) 300 ml PO NOW ONE Stop: 12/20/17 11:01 Methylprednisolone Sodium Succinate (Solu-Medrol) 80 mg IV Q6H [facility] Last Admin: 12/20/17 07:29 Dose: 80 mg Multi-Ingred Cream/Lotion/Oil/Oint (Artificial Tears Ophth Oint) 1 applic OU Q4HR PRN PRN Reason: Dry Eye(s) Ondansetron HCl (Zofran) 4 mg IV Q8H PRN PRN Reason: Nausea And Vomiting Senna/Docusate Sodium (Senokot S) 2 tab PO BID [facility] Simple Syrup (Simple Syrup) 15 ml FEEDTUBE PRN PRN PRN Reason: Hypoglycemia Simple Syrup (Simple Syrup) 30 ml FEEDTUBE PRN PRN PRN Reason: Hypoglycemia Sodium Bicarbonate (Sodium Bicarbonate) 325 mg FEEDTUBE PRN PRN PRN Reason: For Clogged Feeding Tube Sodium Chloride (Sodium Chloride Flush Syringe 10 Ml) 10 ml IV BID [facility] Last Admin: 12/20/17 09:12 Dose: 10 ml Sodium Chloride (Sodium Chloride Flush Syringe 10 Ml) 10 ml IV PRN PRN PRN Reason: LINE FLUSH Last Admin: 12/19/17 19:36 Dose: 10 ml Thiamine HCl (Vitamin B-1) 100 mg PO QDAY [facility] Last Admin: 12/20/17 09:11 Dose: 100 mg Vancomycin HCl (Vancomycin Pharmacy To Dose) 1 each IV PKCONSULT [facility]; Protocol Physical Examination - Physical Exam Narrative exam: General appearance: sedated on the vent Eyes: anicteric sclerae, moist conjunctivae; no lid-lag; PERRLA HENT: Atraumatic; oropharynx +ETT +NGT Neck: Trachea midline; supple, no thyromegaly or lymphadenopathy Lungs: kimberlee rhonchi CV:tachy Abdomen: Soft, distended Extremities: legs edema Skin: Normal temperature, turgor and texture; no rash, ulcers or subcutaneous nodules Psych: sedated. Neuro: sedated Lines: No CVL / PICC - Constitutional Vitals: Vital Signs Temp Pulse Resp BP Pulse Ox 98.0 F 94 H 17 177/94 97 12/20/17 07:44 12/20/17 10:00 12/20/17 10:00 12/20/17 10:00 12/20/17 10:00 Temperature -Last 24 Hours Temperature 98.0 F Temperature 97.8 F Temperature 97.5 F Temperature 98.2 F Temperature 97.9 F Temperature 99.9 F Results - Labs CBC & Chem 7: 12/20/17 04:08 12/20/17 04:08 Labs: Abnormal lab results 12/19/17 12/19/17 12/19/17 Range/Units 14:48 17:59 21:38 WBC (4.5-11.0) K/mm3 RBC (3.65-5.03) M/mm3 Hgb (11.8-15.2) gm/dl Hct (35.5-45.6) % MCV (84-94) fl MCH (28-32) pg Plt Count (140-440) K/mm3 Seg Neuts % (Manual) (40.0-70.0) % Lymphocytes % (Manual) (13.4-35.0) % Seg Neutrophils # Man (1.8-7.7) K/mm3 POC ABG pH (7.35-7.45) Carbon Dioxide (22-30) mmol/L BUN (9-20) mg/dL Creatinine (0.8-1.5) mg/dL Glucose (75-100) mg/dL POC Glucose 327 H 355 H 329 H (70-105) 12/20/17 12/20/17 12/20/17 Range/Units 02:21 03:42 04:08 WBC 22.7 H (4.5-11.0) K/mm3 RBC 3.26 L (3.65-5.03) M/mm3 Hgb 10.6 L (11.8-15.2) gm/dl Hct 32.9 L (35.5-45.6) % MCV 101 H (84-94) fl MCH 33 H (28-32) pg Plt Count 78 L (140-440) K/mm3 Seg Neuts % (Manual) 80.0 H (40.0-70.0) % Lymphocytes % (Manual) 6.0 L (13.4-35.0) % Seg Neutrophils # Man 18.2 H (1.8-7.7) K/mm3 POC ABG pH 7.494 H (7.35-7.45) Carbon Dioxide (22-30) mmol/L BUN (9-20) mg/dL Creatinine (0.8-1.5) mg/dL Glucose (75-100) mg/dL POC Glucose 354 H (70-105) 12/20/17 12/20/17 Range/Units 04:08 05:15 WBC (4.5-11.0) K/mm3 RBC (3.65-5.03) M/mm3 Hgb (11.8-15.2) gm/dl Hct (35.5-45.6) % MCV (84-94) fl MCH (28-32) pg Plt Count (140-440) K/mm3 Seg Neuts % (Manual) (40.0-70.0) % Lymphocytes % (Manual) (13.4-35.0) % Seg Neutrophils # Man (1.8-7.7) K/mm3 POC ABG pH (7.35-7.45) Carbon Dioxide 31 H (22-30) mmol/L BUN 30 H (9-20) mg/dL Creatinine 0.6 L (0.8-1.5) mg/dL Glucose 365 H (75-100) mg/dL POC Glucose 342 H (70-105) Assessment and Plan Assessment: 1) Severe Sepsis: Present on admission, manifested by fever, tachycardia, some hypotension, leukocytosis, increased lactate. Etiology most likely H influenza bacteremia +/- pneumonia +/- ? intrabdominal source. 2) H influenza bacteremia: likely from pneumonia. TTE neg 3) Complicated Bilateral pneumonia: etiology H influenza - should r/o empyema or abscess -CXR showed kimberlee pneumonia -Sputum showed usual resp angelika 4) Acute respiratory failure: intubated 5) Thrombocytopenia : from sepsis 6) Elevated LFTs: from sepsis, ETOH. 7) DM: uncontrolled Plan: -obtain CT chest, abdomen and pelvis in view of persistent fever to r/o empyema , lung abscess, cholecystitis -check HIV, viral hepatitis panel, CRP, JERMAIN, ANCA, C3/C4 -repeat respiratory cultures -stop levaquin -start cefepime and flagyl -continue vanco for now-will stop soon if cultures neg I am rounding on Saturday, call me if any question Thank you for your consultation, will follow up with you. Mariel Corrigan MD Infectious Diseases Specialist [facility], [place] [facility] M [phone] O [phone]
[2017-12-20] MEDS: DULCOLAX PR SCH (10:57)
[2017-12-20] MEDS ORDERED: CITRATE OF MAGNESIA PO ONE (11:00)
[2017-12-20] MEDS: APRESOLINE IV PRN (11:32)
--- NOTE | 2017-12-20 11:45 | XRay Report ---
FINAL REPORT EXAM: XR CHEST 1V AP HISTORY: follow up respiratory failure TECHNIQUE: Frontal portable examination of the chest PRIORS: 12/19/2017 FINDINGS: Right CP angle not completely imaged, limiting the examination for detection of right pleural effusion. Significant clearing of both lungs with slight residual vascular congestion and mild interstitial edema. No visible pleural effusion or pulmonary consolidation. Normal cardiac silhouette size. No pneumothorax or acute displaced fracture. An endotracheal tube remains in place in the region of the trachea with distal tip projecting approximately 7.4 cm above the region of the valentín, at the level of the thoracic inlet, relatively unchanged. NG tube again noted. It again extends below the diaphragm. IMPRESSION: Significant improvement with decreased vascular congestion and interstitial edema. Slight residual. Endotracheal tube remains in place with distal tip at approximately the thoracic inlet level
--- NOTE | 2017-12-20 11:59 | Progress Note ---
Assessment and Plan Imp: 1. Haemophilus influenza pneumonia and bacteremia 2. Severe sepsis 3. ARDS 4. Acute respiratory failure, hypoxia 5. Hypernatremia Rec: 1. ABX per ID 2. Stop IVFs; keep as dry as possible at his point; cont. 300mL [id number] of free water; hold further Lasix today 3. Wean FiO2; keep heavily sedated and skip spontaneous awakening trials for now pending improvement in oxygenation; FiO2 better -> start weaning P high 4. SCDs, GI PPx, TFs 5. F/u vasculitis work-up 6. Prognosis is guarded; no family present today CCt 31 minutes Subjective Date of service: 12/20/17 Principal diagnosis: ARDS Interval history: On APRV 40%. Heavily sedated. Cannot provide history. BP good. Fever better after adding Vanco. Active Medications Acetaminophen (Tylenol) 650 mg PO Q6H PRN PRN Reason: Pain, Mild (1-3),temp 100.5or> Last Admin: 12/19/17 03:15 Dose: 650 mg Albuterol (Proventil) 2.5 mg IH Q4HRT PRN PRN Reason: Shortness Of Breath Last Admin: 12/13/17 03:01 Dose: 2.5 mg Albuterol/Ipratropium (Duoneb *Not For Prn Use*) 1 ampul IH Q6HRT [facility] Last Admin: 12/20/17 15:17 Dose: 1 ampul Lipase/Protease/Amylase (Pancreaze Dr 10,500 Unit) 1 each FEEDTUBE PRN PRN PRN Reason: For Clogged Feeding Tube Bisacodyl (Dulcolax) 10 mg MS QDAY [facility] Last Admin: 12/20/17 10:57 Dose: Not Given Dextrose (D50w (25gm) Syringe) 50 ml IV PRN PRN PRN Reason: Hypoglycemia Famotidine (Pepcid) 20 mg PO BID [facility] Last Admin: 12/20/17 09:11 Dose: 20 mg Hydralazine HCl (Apresoline) 10 mg IV Q4HR PRN PRN Reason: SBP>170 Last Admin: 12/20/17 11:32 Dose: 10 mg Hydromorphone HCl (Dilaudid) 2 mg PO Q6HR [facility] Last Admin: 12/20/17 12:04 Dose: 2 mg Hydromorphone HCl (Dilaudid) 1 mg IV Q4H PRN PRN Reason: Pain , Severe (7-10) Last Admin: 12/20/17 13:47 Dose: 1 mg Hydrophilic Ointment (Vaseline Lip Therapy) 1 applic TP Q2HR PRN PRN Reason: Dry Lips Last Admin: 12/20/17 00:14 Dose: 1 applic Hydrophilic Ointment (Vaseline Lip Therapy) 1 applic TP DIRECT PRN PRN Reason: DRY LIPS Fentanyl Citrate (Fentanyl Drip Premix) 2,000 mcg in 100 mls @ 5.058 mls/hr IV TITR [facility]; Protocol Last Titration: 12/19/17 12:25 Dose: 0 mcg/kg/hr, 0 mls/hr Midazolam HCl 100 mg/ Sodium (Chloride) 100 mls @ 2 mls/hr IV TITR [facility]; Protocol Last Admin: 12/20/17 13:47 Dose: 5 mg/hr, 5 mls/hr Vancomycin HCl 1,500 mg/ (Sodium Chloride) 515 mls @ 333.333 mls/hr IV Q12H [facility] Last Admin: 12/20/17 04:33 Dose: 333.333 mls/hr Cefepime HCl 2 gm/ Sodium (Chloride) 20 mls @ 20 mls/10 min IV Q8HR [facility]; Protocol Last Admin: 12/20/17 14:54 Dose: 20 mls/10 min Metronidazole (Flagyl 500 Mg/100 Ml) 500 mg in 100 mls @ 100 mls/hr IV Q8HR [facility] Last Admin: 12/20/17 13:47 Dose: 100 mls/hr Dexmedetomidine HCl 200 mcg/ (Sodium Chloride) 50 mls @ 5.3 mls/hr IV TITRATE [facility]; Protocol Insulin Glargine (Lantus) 30 units SUB-Q DAILY [facility] Insulin Human Lispro (Humalog) 0 unit SUB-Q Q4H [facility]; Protocol Last Admin: 12/20/17 14:53 Dose: 6 unit Methylprednisolone Sodium Succinate (Solu-Medrol) 40 mg IV Q6H [facility] Metoprolol Tartrate (Lopressor) 50 mg PO BID [facility] Last Admin: 12/20/17 12:04 Dose: 50 mg Multi-Ingred Cream/Lotion/Oil/Oint (Artificial Tears Ophth Oint) 1 applic OU Q4HR PRN PRN Reason: Dry Eye(s) Ondansetron HCl (Zofran) 4 mg IV Q8H PRN PRN Reason: Nausea And Vomiting Senna/Docusate Sodium (Senokot S) 2 tab PO BID [facility] Last Admin: 12/20/17 10:56 Dose: 1 tab Simple Syrup (Simple Syrup) 15 ml FEEDTUBE PRN PRN PRN Reason: Hypoglycemia Simple Syrup (Simple Syrup) 30 ml FEEDTUBE PRN PRN PRN Reason: Hypoglycemia Sodium Bicarbonate (Sodium Bicarbonate) 325 mg FEEDTUBE PRN PRN PRN Reason: For Clogged Feeding Tube Sodium Chloride (Sodium Chloride Flush Syringe 10 Ml) 10 ml IV BID [facility] Last Admin: 12/20/17 09:12 Dose: 10 ml Sodium Chloride (Sodium Chloride Flush Syringe 10 Ml) 10 ml IV PRN PRN PRN Reason: LINE FLUSH Last Admin: 12/19/17 19:36 Dose: 10 ml Thiamine HCl (Vitamin B-1) 100 mg PO QDAY [facility] Last Admin: 12/20/17 09:11 Dose: 100 mg Vancomycin HCl (Vancomycin Pharmacy To Dose) 1 each IV PKCONSULT [facility]; Protocol Active Medications Acetaminophen (Tylenol) 650 mg PO Q6H PRN PRN Reason: Pain, Mild (1-3),temp 100.5or> Last Admin: 12/19/17 03:15 Dose: 650 mg Albuterol (Proventil) 2.5 mg IH Q4HRT PRN PRN Reason: Shortness Of Breath Last Admin: 12/13/17 03:01 Dose: 2.5 mg Albuterol/Ipratropium (Duoneb *Not For Prn Use*) 1 ampul IH Q6HRT [facility] Last Admin: 12/19/17 08:30 Dose: 1 ampul Lipase/Protease/Amylase (Pancreaze Dr 10,500 Unit) 1 each FEEDTUBE PRN PRN PRN Reason: For Clogged Feeding Tube Dextrose (D50w (25gm) Syringe) 50 ml IV PRN PRN PRN Reason: Hypoglycemia Famotidine (Pepcid) 20 mg PO BID [facility] Last Admin: 12/19/17 09:13 Dose: 20 mg Fentanyl (Sublimaze) 50 mcg IV Q2H PRN PRN Reason: PAIN/AGITATION Last Admin: 12/18/17 15:02 Dose: 50 mcg Furosemide (Lasix) 20 mg IV ONCE ONE Stop: 12/19/17 14:00 Hydromorphone HCl (Dilaudid) 2 mg PO Q6HR [facility] Last Admin: 12/19/17 12:25 Dose: 2 mg Hydrophilic Ointment (Vaseline Lip Therapy) 1 applic TP Q2HR PRN PRN Reason: Dry Lips Hydrophilic Ointment (Vaseline Lip Therapy) 1 applic TP DIRECT PRN PRN Reason: DRY LIPS Levofloxacin/Dextrose (Levaquin 750mg/150ml) 750 mg in 150 mls @ 100 mls/hr IV Q24HR [facility]; Protocol Last Admin: 12/19/17 09:02 Dose: 100 mls/hr Fentanyl Citrate (Fentanyl Drip Premix) 2,000 mcg in 100 mls @ 5.058 mls/hr IV TITR [facility]; Protocol Last Admin: 12/19/17 08:51 Dose: 4 mcg/kg/hr, 20.23 mls/hr Midazolam HCl 100 mg/ Sodium (Chloride) 100 mls @ 2 mls/hr IV TITR [facility]; Protocol Last Titration: 12/19/17 10:03 Dose: 3 mg/hr, 3 mls/hr Clindamycin HCl (Cleocin 600 Mg/50 Ml) 600 mg in 50 mls @ 100 mls/hr IV Q8HR [facility] Stop: 12/20/17 13:59 Last Admin: 12/19/17 06:00 Dose: 100 mls/hr Propofol (Diprivan 10 Mg/Ml) 1,000 mg in 100 mls @ 3.264 mls/hr IV TITR [facility]; Protocol Last Titration: 12/19/17 13:51 Dose: 40 mcg/kg/min, 26.112 mls/hr Vancomycin HCl 1,500 mg/ (Sodium Chloride) 515 mls @ 333.333 mls/hr IV Q12H [facility] Last Admin: 12/19/17 04:43 Dose: 333.333 mls/hr Insulin Glargine (Lantus) 20 units SUB-Q DAILY [facility] Insulin Human Lispro (Humalog) 0 unit SUB-Q Q4H [facility]; Protocol Last Admin: 12/19/17 11:44 Dose: 10 unit Methylprednisolone Sodium Succinate (Solu-Medrol) 80 mg IV Q6H [facility] Last Admin: 12/19/17 08:47 Dose: 80 mg Morphine Sulfate (Morphine) 2 mg IV Q4H PRN PRN Reason: Pain, Moderate (4-6) Last Admin: 12/18/17 02:30 Dose: 2 mg Multi-Ingred Cream/Lotion/Oil/Oint (Artificial Tears Ophth Oint) 1 applic OU Q4HR PRN PRN Reason: Dry Eye(s) Ondansetron HCl (Zofran) 4 mg IV Q8H PRN PRN Reason: Nausea And Vomiting Senna/Docusate Sodium (Senokot S) 1 tab PO BID [facility] Last Admin: 12/19/17 09:09 Dose: 1 tab Simple Syrup (Simple Syrup) 15 ml FEEDTUBE PRN PRN PRN Reason: Hypoglycemia Simple Syrup (Simple Syrup) 30 ml FEEDTUBE PRN PRN PRN Reason: Hypoglycemia Sodium Bicarbonate (Sodium Bicarbonate) 325 mg FEEDTUBE PRN PRN PRN Reason: For Clogged Feeding Tube Sodium Chloride (Sodium Chloride Flush Syringe 10 Ml) 10 ml IV BID [facility] Last Admin: 12/19/17 11:49 Dose: 10 ml Sodium Chloride (Sodium Chloride Flush Syringe 10 Ml) 10 ml IV PRN PRN PRN Reason: LINE FLUSH Thiamine HCl (Vitamin B-1) 100 mg PO QDAY [facility] Last Admin: 12/19/17 09:09 Dose: 100 mg Vancomycin HCl (Vancomycin Pharmacy To Dose) 1 each IV PKCONSULT [facility]; Protocol Objective Vital Signs - 12hr 12/20/17 12/20/17 12/20/17 00:00 01:00 02:00 Temperature 97.5 F L Pulse Rate 97 H 83 78 Pulse Rate [ Anterior Bilateral Throughout] Respiratory 12 12 12 Rate Respiratory Rate [Anterior Bilateral Throughout] Blood Pressure 131/77 126/76 133/77 O2 Sat by Pulse 95 95 97 Oximetry 12/20/17 12/20/17 12/20/17 02:15 03:00 03:19 Temperature 97.8 F Pulse Rate 92 H Pulse Rate [ 98 H Anterior Bilateral Throughout] Respiratory 13 Rate Respiratory 18 Rate [Anterior Bilateral Throughout] Blood Pressure 138/90 O2 Sat by Pulse 98 Oximetry 12/20/17 12/20/17 12/20/17 03:28 04:00 05:00 Temperature Pulse Rate 98 H 82 78 Pulse Rate [ Anterior Bilateral Throughout] Respiratory 4 L 12 12 Rate Respiratory Rate [Anterior Bilateral Throughout] Blood Pressure 138/90 131/81 153/92 O2 Sat by Pulse 98 96 95 Oximetry 12/20/17 12/20/17 12/20/17 06:00 07:00 07:44 Temperature 98.0 F Pulse Rate 76 84 Pulse Rate [ Anterior Bilateral Throughout] Respiratory 12 14 Rate Respiratory Rate [Anterior Bilateral Throughout] Blood Pressure 149/90 169/100 O2 Sat by Pulse 96 98 Oximetry 12/20/17 12/20/17 12/20/17 08:00 08:20 09:01 Temperature Pulse Rate 79 77 102 H Pulse Rate [ Anterior Bilateral Throughout] Respiratory 12 12 Rate Respiratory Rate [Anterior Bilateral Throughout] Blood Pressure 148/89 148/89 179/107 O2 Sat by Pulse 97 98 99 Oximetry 12/20/17 12/20/17 12/20/17 10:00 11:01 11:32 Temperature Pulse Rate 94 H 92 H 92 H Pulse Rate [ Anterior Bilateral Throughout] Respiratory 17 16 Rate Respiratory Rate [Anterior Bilateral Throughout] Blood Pressure 177/94 178/108 188/117 O2 Sat by Pulse 97 99 Oximetry 12/20/17 11:53 Temperature 98.9 F Pulse Rate 105 H Pulse Rate [ Anterior Bilateral Throughout] Respiratory Rate Respiratory Rate [Anterior Bilateral Throughout] Blood Pressure 180/99 O2 Sat by Pulse 99 Oximetry Constitutional: other (intubated, sedated) Eyes: non-icteric ENT: oropharynx moist Neck: supple Effort: normal Ascultation: Bilateral: other (coarse BS bilaterally) Cardiovascular: regular rate and rhythm, other (tachycardic) Gastrointestinal: normoactive bowel sounds, soft, non-tender, non-distended, other (obese) Integumentary: normal Extremities: no cyanosis, no edema, pink and warm Neurologic: unable to assess (due to sedation) Psychiatric: other (not able to assess) CBC and BMP: 12/20/17 04:08 12/20/17 04:08 ABG, PT/INR, D-dimer: ABG POC ABG pH 7.494 (7.35-7.45) H 12/20/17 03:42 POC ABG pCO2 43.4 (35-45) 12/20/17 03:42 POC ABG pO2 92 (80-105) 12/20/17 03:42 POC ABG HCO3 33.4 12/20/17 03:42 POC ABG Total CO2 35 12/20/17 03:42 POC ABG O2 Sat 98 12/20/17 03:42 PT/INR, D-dimer PT 14.9 Sec. (12.2-14.9) 12/15/17 04:05 INR 1.11 (0.87-1.13) 12/15/17 04:05 Abnormal lab findings: Abnormal Labs 12/12/17 12/12/17 12/12/17 18:57 19:02 19:02 WBC RBC Hgb Hct MCV 96 H MCH 34 H MCHC 35 H Plt Count 46 L Seg Neuts % (Manual) 77.0 H Lymphocytes % (Manual) 13.0 L Monocytes % (Manual) Nucleated RBC % Seg Neutrophils # Man Lymphocytes # (Manual) 0.9 L Monocytes # (Manual) APTT POC ABG pH POC ABG pCO2 POC ABG pO2 VBG pH Sodium Chloride Carbon Dioxide BUN Creatinine Glucose POC Glucose 321 H Lactic Acid 4.00 H* Calcium Total Bilirubin AST ALT Albumin Triglycerides Amylase Lipase Urine WBC (Auto) 12/12/17 12/12/17 12/12/17 19:02 19:18 20:55 WBC RBC Hgb Hct MCV MCH MCHC Plt Count Seg Neuts % (Manual) Lymphocytes % (Manual) Monocytes % (Manual) Nucleated RBC % Seg Neutrophils # Man Lymphocytes # (Manual) Monocytes # (Manual) APTT POC ABG pH POC ABG pCO2 POC ABG pO2 VBG pH 7.472 H Sodium 124 L Chloride 80.0 L Carbon Dioxide 20 L BUN Creatinine Glucose 382 H POC Glucose 283 H Lactic Acid Calcium 8.1 L Total Bilirubin 4.60 H AST 93 H ALT 112 H Albumin 2.5 L Triglycerides Amylase Lipase Urine WBC (Auto) 12/12/17 12/13/17 12/13/17 21:41 00:45 01:29 WBC RBC Hgb Hct MCV MCH MCHC Plt Count Seg Neuts % (Manual) Lymphocytes % (Manual) Monocytes % (Manual) Nucleated RBC % Seg Neutrophils # Man Lymphocytes # (Manual) Monocytes # (Manual) APTT POC ABG pH POC ABG pCO2 POC ABG pO2 VBG pH Sodium Chloride Carbon Dioxide BUN Creatinine Glucose POC Glucose Lactic Acid 4.20 H* 2.70 H* 3.30 H* Calcium Total Bilirubin AST ALT Albumin Triglycerides Amylase Lipase Urine WBC (Auto) 12/13/17 12/13/17 12/13/17 02:19 03:44 05:58 WBC RBC Hgb Hct MCV 97 H MCH 34 H MCHC 35 H Plt Count 41 L Seg Neuts % (Manual) Lymphocytes % (Manual) 8.0 L Monocytes % (Manual) 8.0 H Nucleated RBC % Seg Neutrophils # Man Lymphocytes # (Manual) 0.6 L Monocytes # (Manual) APTT POC ABG pH 7.334 L POC ABG pCO2 POC ABG pO2 43 L VBG pH Sodium Chloride Carbon Dioxide BUN Creatinine Glucose POC Glucose Lactic Acid 2.60 H* Calcium Total Bilirubin AST ALT Albumin Triglycerides Amylase Lipase Urine WBC (Auto) 12/13/17 12/13/17 12/13/17 05:58 05:58 05:58 WBC RBC Hgb Hct MCV MCH MCHC Plt Count Seg Neuts % (Manual) Lymphocytes % (Manual) Monocytes % (Manual) Nucleated RBC % Seg Neutrophils # Man Lymphocytes # (Manual) Monocytes # (Manual) APTT POC ABG pH POC ABG pCO2 POC ABG pO2 VBG pH Sodium 132 L D Chloride 90.0 L Carbon Dioxide 20 L BUN Creatinine Glucose 346 H POC Glucose 298 H Lactic Acid 4.50 H* Calcium 8.2 L Total Bilirubin AST ALT Albumin Triglycerides Amylase Lipase Urine WBC (Auto) 12/13/17 12/13/17 12/13/17 06:27 09:42 11:47 WBC RBC Hgb Hct MCV MCH MCHC Plt Count Seg Neuts % (Manual) Lymphocytes % (Manual) Monocytes % (Manual) Nucleated RBC % Seg Neutrophils # Man Lymphocytes # (Manual) Monocytes # (Manual) APTT POC ABG pH 7.267 L 7.298 L POC ABG pCO2 50.4 H 51.3 H POC ABG pO2 47 L 43 L VBG pH Sodium Chloride Carbon Dioxide BUN Creatinine Glucose POC Glucose 376 H Lactic Acid Calcium Total Bilirubin AST ALT Albumin Triglycerides Amylase Lipase Urine WBC (Auto) 12/13/17 12/13/17 12/13/17 12:03 13:47 13:47 WBC RBC Hgb Hct MCV MCH MCHC Plt Count Seg Neuts % (Manual) Lymphocytes % (Manual) Monocytes % (Manual) Nucleated RBC % Seg Neutrophils # Man Lymphocytes # (Manual) Monocytes # (Manual) APTT POC ABG pH 7.264 L POC ABG pCO2 54.9 H POC ABG pO2 55 L VBG pH Sodium Chloride Carbon Dioxide BUN Creatinine Glucose POC Glucose Lactic Acid 2.80 H* Calcium Total Bilirubin AST ALT Albumin Triglycerides Amylase 20 L Lipase 9 L Urine WBC (Auto) 12/13/17 12/13/17 12/13/17 15:36 17:39 21:47 WBC RBC Hgb Hct MCV MCH MCHC Plt Count Seg Neuts % (Manual) Lymphocytes % (Manual) Monocytes % (Manual) Nucleated RBC % Seg Neutrophils # Man Lymphocytes # (Manual) Monocytes # (Manual) APTT POC ABG pH 7.229 L 7.225 L POC ABG pCO2 60.9 H 66.3 H POC ABG pO2 42 L 41 L VBG pH Sodium Chloride Carbon Dioxide BUN Creatinine Glucose POC Glucose 289 H Lactic Acid Calcium Total Bilirubin AST ALT Albumin Triglycerides Amylase Lipase Urine WBC (Auto) 12/13/17 12/14/17 12/14/17 22:19 02:03 05:16 WBC RBC Hgb Hct MCV MCH MCHC Plt Count Seg Neuts % (Manual) Lymphocytes % (Manual) Monocytes % (Manual) Nucleated RBC % Seg Neutrophils # Man Lymphocytes # (Manual) Monocytes # (Manual) APTT POC ABG pH 7.247 L POC ABG pCO2 61.2 H POC ABG pO2 53 L VBG pH Sodium Chloride Carbon Dioxide BUN Creatinine Glucose POC Glucose 274 H 295 H Lactic Acid Calcium Total Bilirubin AST ALT Albumin Triglycerides Amylase Lipase Urine WBC (Auto) 12/14/17 12/14/17 12/14/17 05:32 12:04 16:22 WBC RBC Hgb Hct MCV MCH MCHC Plt Count Seg Neuts % (Manual) Lymphocytes % (Manual) Monocytes % (Manual) Nucleated RBC % Seg Neutrophils # Man Lymphocytes # (Manual) Monocytes # (Manual) APTT POC ABG pH POC ABG pCO2 POC ABG pO2 VBG pH Sodium Chloride Carbon Dioxide BUN Creatinine Glucose POC Glucose 230 H 241 H 231 H Lactic Acid Calcium Total Bilirubin AST ALT Albumin Triglycerides Amylase Lipase Urine WBC (Auto) 12/14/17 12/15/17 12/15/17 21:29 02:29 03:25 WBC RBC Hgb Hct MCV MCH MCHC Plt Count Seg Neuts % (Manual) Lymphocytes % (Manual) Monocytes % (Manual) Nucleated RBC % Seg Neutrophils # Man Lymphocytes # (Manual) Monocytes # (Manual) APTT POC ABG pH 7.330 L POC ABG pCO2 55.3 H POC ABG pO2 59 L VBG pH Sodium Chloride Carbon Dioxide BUN Creatinine Glucose POC Glucose 258 H 246 H Lactic Acid Calcium Total Bilirubin AST ALT Albumin Triglycerides Amylase Lipase Urine WBC (Auto) 12/15/17 12/15/17 12/15/17 04:05 04:05 04:05 WBC 15.0 H RBC 3.40 L Hgb 11.3 L D Hct 33.8 L D MCV 100 H MCH 33 H MCHC Plt Count 48 L Seg Neuts % (Manual) Lymphocytes % (Manual) 3.0 L Monocytes % (Manual) Nucleated RBC % 2.0 H Seg Neutrophils # Man Lymphocytes # (Manual) 0.5 L Monocytes # (Manual) 0.9 H APTT 20.9 L POC ABG pH POC ABG pCO2 POC ABG pO2 VBG pH Sodium Chloride Carbon Dioxide BUN 27 H Creatinine Glucose 258 H POC Glucose Lactic Acid Calcium 8.1 L Total Bilirubin AST ALT Albumin Triglycerides Amylase Lipase Urine WBC (Auto) 12/15/17 12/15/17 12/15/17 05:32 11:17 14:59 WBC RBC Hgb Hct MCV MCH MCHC Plt Count Seg Neuts % (Manual) Lymphocytes % (Manual) Monocytes % (Manual) Nucleated RBC % Seg Neutrophils # Man Lymphocytes # (Manual) Monocytes # (Manual) APTT POC ABG pH POC ABG pCO2 POC ABG pO2 VBG pH Sodium Chloride Carbon Dioxide BUN Creatinine Glucose POC Glucose 247 H 268 H 233 H Lactic Acid Calcium Total Bilirubin AST ALT Albumin Triglycerides Amylase Lipase Urine WBC (Auto) 12/15/17 12/15/17 12/15/17 17:00 18:59 21:37 WBC RBC Hgb Hct MCV MCH MCHC Plt Count Seg Neuts % (Manual) Lymphocytes % (Manual) Monocytes % (Manual) Nucleated RBC % Seg Neutrophils # Man Lymphocytes # (Manual) Monocytes # (Manual) APTT POC ABG pH POC ABG pCO2 POC ABG pO2 VBG pH Sodium Chloride Carbon Dioxide BUN Creatinine Glucose POC Glucose 195 H 208 H Lactic Acid Calcium Total Bilirubin AST ALT Albumin Triglycerides Amylase Lipase Urine WBC (Auto) 38.0 H 12/16/17 12/16/17 12/16/17 03:17 03:33 04:18 WBC 16.4 H RBC 3.50 L Hgb 11.3 L Hct 35.4 L MCV 101 H MCH MCHC Plt Count 54 L Seg Neuts % (Manual) Lymphocytes % (Manual) Monocytes % (Manual) Nucleated RBC % Seg Neutrophils # Man Lymphocytes # (Manual) Monocytes # (Manual) APTT POC ABG pH POC ABG pCO2 47.7 H POC ABG pO2 VBG pH Sodium Chloride Carbon Dioxide BUN Creatinine Glucose POC Glucose 227 H Lactic Acid Calcium Total Bilirubin AST ALT Albumin Triglycerides Amylase Lipase Urine WBC (Auto) 12/16/17 12/16/17 12/16/17 04:18 05:08 10:01 WBC RBC Hgb Hct MCV MCH MCHC Plt Count Seg Neuts % (Manual) Lymphocytes % (Manual) Monocytes % (Manual) Nucleated RBC % Seg Neutrophils # Man Lymphocytes # (Manual) Monocytes # (Manual) APTT POC ABG pH POC ABG pCO2 POC ABG pO2 VBG pH Sodium 147 H Chloride 107.4 H Carbon Dioxide BUN 28 H Creatinine Glucose 240 H POC Glucose 227 H 190 H Lactic Acid Calcium 8.3 L Total Bilirubin AST ALT Albumin Triglycerides Amylase Lipase Urine WBC (Auto) 12/16/17 12/16/17 12/16/17 14:15 17:51 21:14 WBC RBC Hgb Hct MCV MCH MCHC Plt Count Seg Neuts % (Manual) Lymphocytes % (Manual) Monocytes % (Manual) Nucleated RBC % Seg Neutrophils # Man Lymphocytes # (Manual) Monocytes # (Manual) APTT POC ABG pH POC ABG pCO2 POC ABG pO2 VBG pH Sodium Chloride Carbon Dioxide BUN Creatinine Glucose POC Glucose 279 H 272 H 260 H Lactic Acid Calcium Total Bilirubin AST ALT Albumin Triglycerides Amylase Lipase Urine WBC (Auto) 12/17/17 12/17/17 12/17/17 02:41 04:28 04:28 WBC 19.1 H RBC 3.50 L Hgb 11.4 L Hct 35.3 L MCV 101 H MCH 33 H MCHC Plt Count 65 L Seg Neuts % (Manual) Lymphocytes % (Manual) Monocytes % (Manual) Nucleated RBC % Seg Neutrophils # Man Lymphocytes # (Manual) Monocytes # (Manual) APTT POC ABG pH POC ABG pCO2 POC ABG pO2 VBG pH Sodium 153 H Chloride 111.2 H Carbon Dioxide 31 H BUN 28 H Creatinine Glucose 248 H POC Glucose 300 H Lactic Acid Calcium Total Bilirubin AST ALT Albumin Triglycerides Amylase Lipase Urine WBC (Auto) 12/17/17 12/17/17 12/17/17 05:15 05:38 10:16 WBC RBC Hgb Hct MCV MCH MCHC Plt Count Seg Neuts % (Manual) Lymphocytes % (Manual) Monocytes % (Manual) Nucleated RBC % Seg Neutrophils # Man Lymphocytes # (Manual) Monocytes # (Manual) APTT POC ABG pH POC ABG pCO2 50.3 H POC ABG pO2 120 H VBG pH Sodium Chloride Carbon Dioxide BUN Creatinine Glucose POC Glucose 231 H 196 H Lactic Acid Calcium Total Bilirubin AST ALT Albumin Triglycerides Amylase Lipase Urine WBC (Auto) 12/17/17 12/17/17 12/17/17 14:22 18:14 21:35 WBC RBC Hgb Hct MCV MCH MCHC Plt Count Seg Neuts % (Manual) Lymphocytes % (Manual) Monocytes % (Manual) Nucleated RBC % Seg Neutrophils # Man Lymphocytes # (Manual) Monocytes # (Manual) APTT POC ABG pH POC ABG pCO2 POC ABG pO2 VBG pH Sodium Chloride Carbon Dioxide BUN Creatinine Glucose POC Glucose 234 H 215 H 159 H Lactic Acid Calcium Total Bilirubin AST ALT Albumin Triglycerides Amylase Lipase Urine WBC (Auto) 12/18/17 12/18/17 12/18/17 00:53 02:58 06:03 WBC RBC Hgb Hct MCV MCH MCHC Plt Count Seg Neuts % (Manual) Lymphocytes % (Manual) Monocytes % (Manual) Nucleated RBC % Seg Neutrophils # Man Lymphocytes # (Manual) Monocytes # (Manual) APTT POC ABG pH POC ABG pCO2 56.4 H POC ABG pO2 46 L VBG pH Sodium Chloride Carbon Dioxide BUN Creatinine Glucose POC Glucose 176 H 143 H Lactic Acid Calcium Total Bilirubin AST ALT Albumin Triglycerides Amylase Lipase Urine WBC (Auto) 12/18/17 12/18/17 12/18/17 07:59 09:20 09:20 WBC 27.4 H RBC 3.57 L Hgb 11.4 L Hct MCV 101 H MCH MCHC Plt Count 64 L Seg Neuts % (Manual) Lymphocytes % (Manual) Monocytes % (Manual) Nucleated RBC % Seg Neutrophils # Man Lymphocytes # (Manual) Monocytes # (Manual) APTT POC ABG pH POC ABG pCO2 POC ABG pO2 VBG pH Sodium 152 H Chloride 107.9 H Carbon Dioxide 34 H BUN 23 H Creatinine 0.7 L Glucose 181 H POC Glucose 197 H Lactic Acid Calcium Total Bilirubin AST ALT Albumin Triglycerides Amylase Lipase Urine WBC (Auto) 12/18/17 12/18/17 12/18/17 10:22 15:03 18:15 WBC RBC Hgb Hct MCV MCH MCHC Plt Count Seg Neuts % (Manual) Lymphocytes % (Manual) Monocytes % (Manual) Nucleated RBC % Seg Neutrophils # Man Lymphocytes # (Manual) Monocytes # (Manual) APTT POC ABG pH POC ABG pCO2 POC ABG pO2 VBG pH Sodium Chloride Carbon Dioxide BUN Creatinine Glucose POC Glucose 195 H 225 H 238 H Lactic Acid Calcium Total Bilirubin AST ALT Albumin Triglycerides Amylase Lipase Urine WBC (Auto) 12/18/17 12/18/17 12/19/17 18:29 21:53 00:18 WBC RBC Hgb Hct MCV MCH MCHC Plt Count Seg Neuts % (Manual) Lymphocytes % (Manual) Monocytes % (Manual) Nucleated RBC % Seg Neutrophils # Man Lymphocytes # (Manual) Monocytes # (Manual) APTT POC ABG pH 7.476 H POC ABG pCO2 50.4 H POC ABG pO2 158 H VBG pH Sodium Chloride Carbon Dioxide BUN Creatinine Glucose POC Glucose 231 H 263 H Lactic Acid Calcium Total Bilirubin AST ALT Albumin Triglycerides Amylase Lipase Urine WBC (Auto) 12/19/17 12/19/17 12/19/17 02:09 04:07 04:07 WBC 25.9 H RBC 3.25 L Hgb 10.6 L Hct 32.8 L MCV 101 H MCH 33 H MCHC Plt Count 67 L Seg Neuts % (Manual) Lymphocytes % (Manual) 4.0 L Monocytes % (Manual) Nucleated RBC % Seg Neutrophils # Man 14.8 H Lymphocytes # (Manual) 1.0 L Monocytes # (Manual) APTT POC ABG pH POC ABG pCO2 POC ABG pO2 VBG pH Sodium 148 H Chloride Carbon Dioxide BUN 31 H Creatinine Glucose 314 H POC Glucose 300 H Lactic Acid Calcium 8.1 L Total Bilirubin AST ALT Albumin Triglycerides Amylase Lipase Urine WBC (Auto) 12/19/17 12/19/17 12/19/17 05:15 05:41 07:57 WBC RBC Hgb Hct MCV MCH MCHC Plt Count Seg Neuts % (Manual) Lymphocytes % (Manual) Monocytes % (Manual) Nucleated RBC % Seg Neutrophils # Man Lymphocytes # (Manual) Monocytes # (Manual) APTT POC ABG pH 7.507 H POC ABG pCO2 POC ABG pO2 VBG pH Sodium Chloride Carbon Dioxide BUN Creatinine Glucose POC Glucose 331 H 307 H Lactic Acid Calcium Total Bilirubin AST ALT Albumin Triglycerides Amylase Lipase Urine WBC (Auto) 0312/19/17 12/19/17 10:21 14:48 17:59 WBC RBC Hgb Hct MCV MCH MCHC Plt Count Seg Neuts % (Manual) Lymphocytes % (Manual) Monocytes % (Manual) Nucleated RBC % Seg Neutrophils # Man Lymphocytes # (Manual) Monocytes # (Manual) APTT POC ABG pH POC ABG pCO2 POC ABG pO2 VBG pH Sodium Chloride Carbon Dioxide BUN Creatinine Glucose POC Glucose 358 H 327 H 355 H Lactic Acid Calcium Total Bilirubin AST ALT Albumin Triglycerides Amylase Lipase Urine WBC (Auto) 12/19/17 12/20/17 12/20/17 21:38 02:21 03:42 WBC RBC Hgb Hct MCV MCH MCHC Plt Count Seg Neuts % (Manual) Lymphocytes % (Manual) Monocytes % (Manual) Nucleated RBC % Seg Neutrophils # Man Lymphocytes # (Manual) Monocytes # (Manual) APTT POC ABG pH 7.494 H POC ABG pCO2 POC ABG pO2 VBG pH Sodium Chloride Carbon Dioxide BUN Creatinine Glucose POC Glucose 329 H 354 H Lactic Acid Calcium Total Bilirubin AST ALT Albumin Triglycerides Amylase Lipase Urine WBC (Auto) 12/20/17 12/20/17 12/20/17 04:08 04:08 04:08 WBC 22.7 H RBC 3.26 L Hgb 10.6 L Hct 32.9 L MCV 101 H MCH 33 H MCHC Plt Count 78 L Seg Neuts % (Manual) 80.0 H Lymphocytes % (Manual) 6.0 L Monocytes % (Manual) Nucleated RBC % Seg Neutrophils # Man 18.2 H Lymphocytes # (Manual) Monocytes # (Manual) APTT POC ABG pH POC ABG pCO2 POC ABG pO2 VBG pH Sodium Chloride Carbon Dioxide 31 H BUN 30 H Creatinine 0.6 L Glucose 365 H POC Glucose Lactic Acid Calcium Total Bilirubin AST ALT Albumin Triglycerides 981 H Amylase Lipase Urine WBC (Auto) 12/20/17 05:15 WBC RBC Hgb Hct MCV MCH MCHC Plt Count Seg Neuts % (Manual) Lymphocytes % (Manual) Monocytes % (Manual) Nucleated RBC % Seg Neutrophils # Man Lymphocytes # (Manual) Monocytes # (Manual) APTT POC ABG pH POC ABG pCO2 POC ABG pO2 VBG pH Sodium Chloride Carbon Dioxide BUN Creatinine Glucose POC Glucose 342 H Lactic Acid Calcium Total Bilirubin AST ALT Albumin Triglycerides Amylase Lipase Urine WBC (Auto) Chest x-ray: report reviewed, image reviewed
[2017-12-20] MEDS: LOPRESSOR PO SCH ×2 (12:04→21:02)
[2017-12-20] MEDS ORDERED: LANTUS SUB-Q ONE (13:00)
[2017-12-20] MEDS: FLAGYL 500 MG/100 ML 500 MG/100 ML BAG IV SCH ×2 (13:47→21:40)
[2017-12-20] MEDS: MIDAZOLAM 100 MG in NACL 0.9% 80 ML IV SCH (13:47)
[2017-12-20] MEDS: MAXIPIME 2 GM in NACL 0.9% 20 ML IV SCH ×2 (14:54→21:57)
[2017-12-20 14:55] LABS: Hepatitis A Antibody IgM Non-Reactive (NonReactive); Hepatitis B Core IgM Non-Reactive (NonReactive); Hepatitis B Surface Antigen Non-Reactive (Negative); Hepatitis C Virus Antibody Non-Reactive (NonReactive)
--- NOTE | 2017-12-20 15:04 | Progress Note ---
Assessment and Plan Acute hypoxic respiratory failure - suspected due to ARDS/aspiration pneumonia: on iv cefepime/flagyl/vancomycin Suspected ARDS: - Pulmonology is following, on vent Sepsis with Aspiration pneumonia ?, poa: - on IV antibiotics, repeat blood cx negative - cont to spike fever, consulted ID, appreciate recommendation Alcohol abuse: sedated, cont iv thiamine Hypotension resolved with ivfs and iv steroids Thrombocytopenia, - severe most likely due to sepsis: hold heparin Hypernatremia - cont free water with TF, monitor BMP, improving DM type 2- cont long acting and SSI, increased lentus to 20 unit daily DVT prophylaxis: scd only, due to thrombocytopenia Brief History: Patient is a 47 yo man with a history of tobacco dependency, alcohol abuse, dm type 2, hypertension and asthma who presented to [facility] ED with SOB and found to be severely hypoxic, failed bipap and was intubated. There is report of n/v during and after intubation. Hospitalist Physical GEN: Ill-appearing HEENT: NCAT, pupils react, ET tube, NG tube in place NECK: supple, CVS/HEART:regular tachy NORMAL S1S2, pulses present bilaterally CHEST/LUNGS: Symmetrical chest expansion, good air entry bilaterally GI/Abdomen: soft, distended, good bowel sounds, no guarding or rebound /Bladder: condom cath in place EXT/Skin: Dependent edema MSK: sedated Neuro: sedated Psych: sedated Subjective Date of service: 12/20/17 Principal diagnosis: ARDS Interval history: Pt seen and examined Remained intubated and sedated Tolerating tube feeding Objective - Constitutional Vitals: Vital Signs - 12hr 12/20/17 12/20/17 12/20/17 03:19 03:28 04:00 Temperature 97.8 F Pulse Rate 98 H 82 Respiratory 4 L 12 Rate Blood Pressure 138/90 131/81 O2 Sat by Pulse 98 96 Oximetry 12/20/17 12/20/17 12/20/17 05:00 06:00 07:00 Temperature Pulse Rate 78 76 84 Respiratory 12 12 14 Rate Blood Pressure 153/92 149/90 169/100 O2 Sat by Pulse 95 96 98 Oximetry 12/20/17 12/20/17 12/20/17 07:44 08:00 08:20 Temperature 98.0 F Pulse Rate 79 77 Respiratory 12 Rate Blood Pressure 148/89 148/89 O2 Sat by Pulse 97 98 Oximetry 12/20/17 12/20/17 12/20/17 09:01 10:00 11:01 Temperature Pulse Rate 102 H 94 H 92 H Respiratory 12 17 16 Rate Blood Pressure 179/107 177/94 178/108 O2 Sat by Pulse 99 97 99 Oximetry 12/20/17 12/20/17 12/20/17 11:32 11:53 12:00 Temperature 98.9 F Pulse Rate 92 H 105 H 109 H Respiratory 14 Rate Blood Pressure 188/117 180/99 180/99 O2 Sat by Pulse 99 99 Oximetry 12/20/17 12/20/17 12/20/17 12:04 13:00 14:00 Temperature Pulse Rate 109 H 99 H 97 H Respiratory 27 H 14 Rate Blood Pressure 180/99 162/88 154/86 O2 Sat by Pulse 90 92 Oximetry - Labs CBC & Chem 7: 12/20/17 04:08 12/20/17 04:08 Labs: Abnormal lab results 12/19/17 12/19/17 12/20/17 Range/Units 17:59 21:38 02:21 WBC (4.5-11.0) K/mm3 RBC (3.65-5.03) M/mm3 Hgb (11.8-15.2) gm/dl Hct (35.5-45.6) % MCV (84-94) fl MCH (28-32) pg Plt Count (140-440) K/mm3 Seg Neuts % (Manual) (40.0-70.0) % Lymphocytes % (Manual) (13.4-35.0) % Seg Neutrophils # Man (1.8-7.7) K/mm3 POC ABG pH (7.35-7.45) Carbon Dioxide (22-30) mmol/L BUN (9-20) mg/dL Creatinine (0.8-1.5) mg/dL Glucose (75-100) mg/dL POC Glucose 355 H 329 H 354 H (70-105) C-Reactive Protein (0.00-1.30) mg/dL Triglycerides (2-149) mg/dL 12/20/17 12/20/17 12/20/17 Range/Units 03:42 04:08 04:08 WBC 22.7 H (4.5-11.0) K/mm3 RBC 3.26 L (3.65-5.03) M/mm3 Hgb 10.6 L (11.8-15.2) gm/dl Hct 32.9 L (35.5-45.6) % MCV 101 H (84-94) fl MCH 33 H (28-32) pg Plt Count 78 L (140-440) K/mm3 Seg Neuts % (Manual) 80.0 H (40.0-70.0) % Lymphocytes % (Manual) 6.0 L (13.4-35.0) % Seg Neutrophils # Man 18.2 H (1.8-7.7) K/mm3 POC ABG pH 7.494 H (7.35-7.45) Carbon Dioxide 31 H (22-30) mmol/L BUN 30 H (9-20) mg/dL Creatinine 0.6 L (0.8-1.5) mg/dL Glucose 365 H (75-100) mg/dL POC Glucose (70-105) C-Reactive Protein (0.00-1.30) mg/dL Triglycerides (2-149) mg/dL 12/20/17 12/20/17 12/20/17 Range/Units 04:08 05:15 10:47 WBC (4.5-11.0) K/mm3 RBC (3.65-5.03) M/mm3 Hgb (11.8-15.2) gm/dl Hct (35.5-45.6) % MCV (84-94) fl MCH (28-32) pg Plt Count (140-440) K/mm3 Seg Neuts % (Manual) (40.0-70.0) % Lymphocytes % (Manual) (13.4-35.0) % Seg Neutrophils # Man (1.8-7.7) K/mm3 POC ABG pH (7.35-7.45) Carbon Dioxide (22-30) mmol/L BUN (9-20) mg/dL Creatinine (0.8-1.5) mg/dL Glucose (75-100) mg/dL POC Glucose 342 H 330 H (70-105) C-Reactive Protein (0.00-1.30) mg/dL Triglycerides 981 H (2-149) mg/dL 12/20/17 12/20/17 Range/Units 13:40 13:40 WBC (4.5-11.0) K/mm3 RBC (3.65-5.03) M/mm3 Hgb (11.8-15.2) gm/dl Hct (35.5-45.6) % MCV (84-94) fl MCH (28-32) pg Plt Count (140-440) K/mm3 Seg Neuts % (Manual) (40.0-70.0) % Lymphocytes % (Manual) (13.4-35.0) % Seg Neutrophils # Man (1.8-7.7) K/mm3 POC ABG pH (7.35-7.45) Carbon Dioxide (22-30) mmol/L BUN (9-20) mg/dL Creatinine (0.8-1.5) mg/dL Glucose (75-100) mg/dL POC Glucose (70-105) C-Reactive Protein 7.10 H (0.00-1.30) mg/dL Triglycerides 1042 H (2-149) mg/dL
[2017-12-20] MEDS: DEXMEDETOMIDINE 200 MCG in NACL 0.9% 48 ML IV SCH ×4 (15:51→23:33)
--- NOTE | 2017-12-20 17:21 | XRay Report ---
FINAL REPORT EXAM: XR CHEST 1V AP HISTORY: Right arm PICC placement TECHNIQUE: Frontal portable examination of the chest PRIORS: 12/20/2017 FINDINGS: Stable position of endotracheal and NG tubes. Interval resolution of vascular congestion. Normal cardiac silhouette size. No pneumothorax or pleural effusion. No acute displaced fracture Slight asymmetric interstitial opacity in the right lung base which may be mild edema or pneumonitis. IMPRESSION: Slight interstitial opacity in the right lung base may reflect mild edema or pneumonitis A new right venous catheter is in place with distal tip near the cavoatrial junction region.
[2017-12-20] MEDS ORDERED: ATIVAN ONE (19:46)
[2017-12-20] MEDS: TYLENOL PO PRN (19:53)
[2017-12-20] MEDS: ATIVAN IV PRN (21:58)
[2017-12-21] MEDS: ATIVAN IV PRN ×7 (00:05→23:15)
[2017-12-21] MEDS: DUONEB *Not for PRN Use IH SCH ×4 (01:32→20:00)
[2017-12-21] MEDS: DEXMEDETOMIDINE 200 MCG in NACL 0.9% 48 ML IV SCH ×9 (02:16→21:18)
[2017-12-21] MEDS: HumaLOG SUB-Q SCH ×6 (02:59→22:26)
[2017-12-21] MEDS: DILAUDID IV PRN ×5 (03:02→20:57)
[2017-12-21] MEDS: VANCOMYCIN 1,500 MG in NACL 0.9% 500 ML 500 ML IV SCH ×4 (04:27→21:19)
[2017-12-21] MEDS: MAXIPIME 2 GM in NACL 0.9% 20 ML IV SCH ×3 (06:00→21:19)
[2017-12-21] MEDS: FLAGYL 500 MG/100 ML 500 MG/100 ML BAG IV SCH ×3 (06:10→21:20)
[2017-12-21] MEDS: DILAUDID PO SCH ×4 (06:10→23:06)
[2017-12-21] MEDS: ZOFRAN IV PRN (09:06)
[2017-12-21] MEDS: SODIUM CHLORIDE FLUSH SYRINGE 10 ML IV SCH ×2 (09:10→21:17)
[2017-12-21] MEDS: LOPRESSOR PO SCH ×2 (09:11→21:20)
[2017-12-21] MEDS: VITAMIN B-1 PO SCH (09:11)
[2017-12-21] MEDS: LANTUS SUB-Q SCH (09:11)
[2017-12-21] MEDS: SENOKOT S PO SCH ×2 (09:12→21:18)
[2017-12-21] MEDS: PEPCID PO SCH ×2 (09:12→21:22)
[2017-12-21] MEDS: DULCOLAX PR SCH (09:12)
--- NOTE | 2017-12-21 12:25 | Progress Note ---
Assessment and Plan - Patient Problems (1) Sepsis Current Visit: Yes Status: Acute (2) Haemophilus influenzae infection Current Visit: Yes Status: Acute (3) Acute respiratory failure Current Visit: Yes Status: Acute (4) Acute respiratory distress syndrome (ARDS) Current Visit: Yes Status: Acute Subjective Principal diagnosis: ARDS Interval history: at bedside On vent On AC fio2 35% On multiple drips for sedation while on vent Objective Vital Signs - 12hr 12/21/17 12/21/17 12/21/17 01:00 01:32 01:47 Temperature Pulse Rate 76 Pulse Rate [ 72 74 Anterior Bilateral Throughout] Pulse Rate [ From Monitor] Respiratory 14 Rate Respiratory 25 H 25 H Rate [Anterior Bilateral Throughout] Blood Pressure 163/88 O2 Sat by Pulse 94 Oximetry 12/21/17 12/21/17 12/21/17 02:00 03:00 03:44 Temperature Pulse Rate 89 79 81 Pulse Rate [ Anterior Bilateral Throughout] Pulse Rate [ From Monitor] Respiratory 10 L 11 L Rate Respiratory Rate [Anterior Bilateral Throughout] Blood Pressure 161/87 165/90 153/89 O2 Sat by Pulse 98 91 96 Oximetry 12/21/17 12/21/17 12/21/17 04:00 04:01 05:01 Temperature 99.0 F Pulse Rate 85 75 Pulse Rate [ Anterior Bilateral Throughout] Pulse Rate [ From Monitor] Respiratory 11 L 11 L Rate Respiratory Rate [Anterior Bilateral Throughout] Blood Pressure 158/81 158/90 O2 Sat by Pulse 93 94 Oximetry 12/21/17 12/21/17 12/21/17 06:01 07:01 08:00 Temperature 98.7 F Pulse Rate 79 73 85 Pulse Rate [ Anterior Bilateral Throughout] Pulse Rate [ 86 From Monitor] Respiratory 22 13 24 Rate Respiratory Rate [Anterior Bilateral Throughout] Blood Pressure 163/94 163/94 159/87 O2 Sat by Pulse 93 92 97 Oximetry 12/21/17 12/21/17 12/21/17 08:48 09:00 09:11 Temperature Pulse Rate 91 H 99 H 91 H Pulse Rate [ Anterior Bilateral Throughout] Pulse Rate [ From Monitor] Respiratory 15 Rate Respiratory Rate [Anterior Bilateral Throughout] Blood Pressure 159/87 159/87 140/85 O2 Sat by Pulse 99 92 Oximetry 12/21/17 12/21/17 10:06 11:00 Temperature Pulse Rate 61 Pulse Rate [ Anterior Bilateral Throughout] Pulse Rate [ From Monitor] Respiratory 20 Rate Respiratory Rate [Anterior Bilateral Throughout] Blood Pressure 140/85 169/79 O2 Sat by Pulse 95 93 Oximetry Constitutional: other (intubated, sedated) Eyes: non-icteric ENT: oropharynx moist Neck: supple Effort: normal Ascultation: Right: rales, Bilateral: diminished breath sounds, other (coarse BS bilaterally) Cardiovascular: regular rate and rhythm, other (tachycardic) Gastrointestinal: normoactive bowel sounds, soft, non-tender, non-distended, other (obese) Integumentary: normal Extremities: no cyanosis, no edema, pink and warm Neurologic: unable to assess (due to sedation) Psychiatric: other (not able to assess) CBC and BMP: 12/20/17 04:08 12/20/17 04:08 ABG, PT/INR, D-dimer: ABG POC ABG pH 7.474 (7.35-7.45) H 12/21/17 03:59 POC ABG pCO2 43.9 (35-45) 12/21/17 03:59 POC ABG pO2 71 (80-105) L 12/21/17 03:59 POC ABG HCO3 32.3 12/21/17 03:59 POC ABG Total CO2 34 12/21/17 03:59 POC ABG O2 Sat 95 12/21/17 03:59 PT/INR, D-dimer PT 14.9 Sec. (12.2-14.9) 12/15/17 04:05 INR 1.11 (0.87-1.13) 12/15/17 04:05 Abnormal lab findings: Abnormal Labs 12/12/17 12/12/17 12/12/17 18:57 19:02 19:02 WBC RBC Hgb Hct MCV 96 H MCH 34 H MCHC 35 H Plt Count 46 L Seg Neuts % (Manual) 77.0 H Lymphocytes % (Manual) 13.0 L Monocytes % (Manual) Nucleated RBC % Seg Neutrophils # Man Lymphocytes # (Manual) 0.9 L Monocytes # (Manual) APTT POC ABG pH POC ABG pCO2 POC ABG pO2 VBG pH Sodium Chloride Carbon Dioxide BUN Creatinine Glucose POC Glucose 321 H Lactic Acid 4.00 H* Calcium Total Bilirubin AST ALT C-Reactive Protein Albumin Triglycerides Amylase Lipase Urine WBC (Auto) 12/12/17 12/12/17 12/12/17 19:02 19:18 20:55 WBC RBC Hgb Hct MCV MCH MCHC Plt Count Seg Neuts % (Manual) Lymphocytes % (Manual) Monocytes % (Manual) Nucleated RBC % Seg Neutrophils # Man Lymphocytes # (Manual) Monocytes # (Manual) APTT POC ABG pH POC ABG pCO2 POC ABG pO2 VBG pH 7.472 H Sodium 124 L Chloride 80.0 L Carbon Dioxide 20 L BUN Creatinine Glucose 382 H POC Glucose 283 H Lactic Acid Calcium 8.1 L Total Bilirubin 4.60 H AST 93 H ALT 112 H C-Reactive Protein Albumin 2.5 L Triglycerides Amylase Lipase Urine WBC (Auto) 12/12/17 12/13/17 12/13/17 21:41 00:45 01:29 WBC RBC Hgb Hct MCV MCH MCHC Plt Count Seg Neuts % (Manual) Lymphocytes % (Manual) Monocytes % (Manual) Nucleated RBC % Seg Neutrophils # Man Lymphocytes # (Manual) Monocytes # (Manual) APTT POC ABG pH POC ABG pCO2 POC ABG pO2 VBG pH Sodium Chloride Carbon Dioxide BUN Creatinine Glucose POC Glucose Lactic Acid 4.20 H* 2.70 H* 3.30 H* Calcium Total Bilirubin AST ALT C-Reactive Protein Albumin Triglycerides Amylase Lipase Urine WBC (Auto) 12/13/17 12/13/17 12/13/17 02:19 03:44 05:58 WBC RBC Hgb Hct MCV 97 H MCH 34 H MCHC 35 H Plt Count 41 L Seg Neuts % (Manual) Lymphocytes % (Manual) 8.0 L Monocytes % (Manual) 8.0 H Nucleated RBC % Seg Neutrophils # Man Lymphocytes # (Manual) 0.6 L Monocytes # (Manual) APTT POC ABG pH 7.334 L POC ABG pCO2 POC ABG pO2 43 L VBG pH Sodium Chloride Carbon Dioxide BUN Creatinine Glucose POC Glucose Lactic Acid 2.60 H* Calcium Total Bilirubin AST ALT C-Reactive Protein Albumin Triglycerides Amylase Lipase Urine WBC (Auto) 12/13/17 12/13/17 12/13/17 05:58 05:58 05:58 WBC RBC Hgb Hct MCV MCH MCHC Plt Count Seg Neuts % (Manual) Lymphocytes % (Manual) Monocytes % (Manual) Nucleated RBC % Seg Neutrophils # Man Lymphocytes # (Manual) Monocytes # (Manual) APTT POC ABG pH POC ABG pCO2 POC ABG pO2 VBG pH Sodium 132 L D Chloride 90.0 L Carbon Dioxide 20 L BUN Creatinine Glucose 346 H POC Glucose 298 H Lactic Acid 4.50 H* Calcium 8.2 L Total Bilirubin AST ALT C-Reactive Protein Albumin Triglycerides Amylase Lipase Urine WBC (Auto) 12/13/17 12/13/17 12/13/17 06:27 09:42 11:47 WBC RBC Hgb Hct MCV MCH MCHC Plt Count Seg Neuts % (Manual) Lymphocytes % (Manual) Monocytes % (Manual) Nucleated RBC % Seg Neutrophils # Man Lymphocytes # (Manual) Monocytes # (Manual) APTT POC ABG pH 7.267 L 7.298 L POC ABG pCO2 50.4 H 51.3 H POC ABG pO2 47 L 43 L VBG pH Sodium Chloride Carbon Dioxide BUN Creatinine Glucose POC Glucose 376 H Lactic Acid Calcium Total Bilirubin AST ALT C-Reactive Protein Albumin Triglycerides Amylase Lipase Urine WBC (Auto) 12/13/17 12/13/17 12/13/17 12:03 13:47 13:47 WBC RBC Hgb Hct MCV MCH MCHC Plt Count Seg Neuts % (Manual) Lymphocytes % (Manual) Monocytes % (Manual) Nucleated RBC % Seg Neutrophils # Man Lymphocytes # (Manual) Monocytes # (Manual) APTT POC ABG pH 7.264 L POC ABG pCO2 54.9 H POC ABG pO2 55 L VBG pH Sodium Chloride Carbon Dioxide BUN Creatinine Glucose POC Glucose Lactic Acid 2.80 H* Calcium Total Bilirubin AST ALT C-Reactive Protein Albumin Triglycerides Amylase 20 L Lipase 9 L Urine WBC (Auto) 12/13/17 12/13/17 12/13/17 15:36 17:39 21:47 WBC RBC Hgb Hct MCV MCH MCHC Plt Count Seg Neuts % (Manual) Lymphocytes % (Manual) Monocytes % (Manual) Nucleated RBC % Seg Neutrophils # Man Lymphocytes # (Manual) Monocytes # (Manual) APTT POC ABG pH 7.229 L 7.225 L POC ABG pCO2 60.9 H 66.3 H POC ABG pO2 42 L 41 L VBG pH Sodium Chloride Carbon Dioxide BUN Creatinine Glucose POC Glucose 289 H Lactic Acid Calcium Total Bilirubin AST ALT C-Reactive Protein Albumin Triglycerides Amylase Lipase Urine WBC (Auto) 12/13/17 12/14/17 12/14/17 22:19 02:03 05:16 WBC RBC Hgb Hct MCV MCH MCHC Plt Count Seg Neuts % (Manual) Lymphocytes % (Manual) Monocytes % (Manual) Nucleated RBC % Seg Neutrophils # Man Lymphocytes # (Manual) Monocytes # (Manual) APTT POC ABG pH 7.247 L POC ABG pCO2 61.2 H POC ABG pO2 53 L VBG pH Sodium Chloride Carbon Dioxide BUN Creatinine Glucose POC Glucose 274 H 295 H Lactic Acid Calcium Total Bilirubin AST ALT C-Reactive Protein Albumin Triglycerides Amylase Lipase Urine WBC (Auto) 12/14/17 12/14/17 12/14/17 05:32 12:04 16:22 WBC RBC Hgb Hct MCV MCH MCHC Plt Count Seg Neuts % (Manual) Lymphocytes % (Manual) Monocytes % (Manual) Nucleated RBC % Seg Neutrophils # Man Lymphocytes # (Manual) Monocytes # (Manual) APTT POC ABG pH POC ABG pCO2 POC ABG pO2 VBG pH Sodium Chloride Carbon Dioxide BUN Creatinine Glucose POC Glucose 230 H 241 H 231 H Lactic Acid Calcium Total Bilirubin AST ALT C-Reactive Protein Albumin Triglycerides Amylase Lipase Urine WBC (Auto) 12/14/17 12/15/17 12/15/17 21:29 02:29 03:25 WBC RBC Hgb Hct MCV MCH MCHC Plt Count Seg Neuts % (Manual) Lymphocytes % (Manual) Monocytes % (Manual) Nucleated RBC % Seg Neutrophils # Man Lymphocytes # (Manual) Monocytes # (Manual) APTT POC ABG pH 7.330 L POC ABG pCO2 55.3 H POC ABG pO2 59 L VBG pH Sodium Chloride Carbon Dioxide BUN Creatinine Glucose POC Glucose 258 H 246 H Lactic Acid Calcium Total Bilirubin AST ALT C-Reactive Protein Albumin Triglycerides Amylase Lipase Urine WBC (Auto) 12/15/17 12/15/17 12/15/17 04:05 04:05 04:05 WBC 15.0 H RBC 3.40 L Hgb 11.3 L D Hct 33.8 L D MCV 100 H MCH 33 H MCHC Plt Count 48 L Seg Neuts % (Manual) Lymphocytes % (Manual) 3.0 L Monocytes % (Manual) Nucleated RBC % 2.0 H Seg Neutrophils # Man Lymphocytes # (Manual) 0.5 L Monocytes # (Manual) 0.9 H APTT 20.9 L POC ABG pH POC ABG pCO2 POC ABG pO2 VBG pH Sodium Chloride Carbon Dioxide BUN 27 H Creatinine Glucose 258 H POC Glucose Lactic Acid Calcium 8.1 L Total Bilirubin AST ALT C-Reactive Protein Albumin Triglycerides Amylase Lipase Urine WBC (Auto) 12/15/17 12/15/17 12/15/17 05:32 11:17 14:59 WBC RBC Hgb Hct MCV MCH MCHC Plt Count Seg Neuts % (Manual) Lymphocytes % (Manual) Monocytes % (Manual) Nucleated RBC % Seg Neutrophils # Man Lymphocytes # (Manual) Monocytes # (Manual) APTT POC ABG pH POC ABG pCO2 POC ABG pO2 VBG pH Sodium Chloride Carbon Dioxide BUN Creatinine Glucose POC Glucose 247 H 268 H 233 H Lactic Acid Calcium Total Bilirubin AST ALT C-Reactive Protein Albumin Triglycerides Amylase Lipase Urine WBC (Auto) 12/15/17 12/15/17 12/15/17 17:00 18:59 21:37 WBC RBC Hgb Hct MCV MCH MCHC Plt Count Seg Neuts % (Manual) Lymphocytes % (Manual) Monocytes % (Manual) Nucleated RBC % Seg Neutrophils # Man Lymphocytes # (Manual) Monocytes # (Manual) APTT POC ABG pH POC ABG pCO2 POC ABG pO2 VBG pH Sodium Chloride Carbon Dioxide BUN Creatinine Glucose POC Glucose 195 H 208 H Lactic Acid Calcium Total Bilirubin AST ALT C-Reactive Protein Albumin Triglycerides Amylase Lipase Urine WBC (Auto) 38.0 H 12/16/17 12/16/17 12/16/17 03:17 03:33 04:18 WBC 16.4 H RBC 3.50 L Hgb 11.3 L Hct 35.4 L MCV 101 H MCH MCHC Plt Count 54 L Seg Neuts % (Manual) Lymphocytes % (Manual) Monocytes % (Manual) Nucleated RBC % Seg Neutrophils # Man Lymphocytes # (Manual) Monocytes # (Manual) APTT POC ABG pH POC ABG pCO2 47.7 H POC ABG pO2 VBG pH Sodium Chloride Carbon Dioxide BUN Creatinine Glucose POC Glucose 227 H Lactic Acid Calcium Total Bilirubin AST ALT C-Reactive Protein Albumin Triglycerides Amylase Lipase Urine WBC (Auto) 12/16/17 12/16/17 12/16/17 04:18 05:08 10:01 WBC RBC Hgb Hct MCV MCH MCHC Plt Count Seg Neuts % (Manual) Lymphocytes % (Manual) Monocytes % (Manual) Nucleated RBC % Seg Neutrophils # Man Lymphocytes # (Manual) Monocytes # (Manual) APTT POC ABG pH POC ABG pCO2 POC ABG pO2 VBG pH Sodium 147 H Chloride 107.4 H Carbon Dioxide BUN 28 H Creatinine Glucose 240 H POC Glucose 227 H 190 H Lactic Acid Calcium 8.3 L Total Bilirubin AST ALT C-Reactive Protein Albumin Triglycerides Amylase Lipase Urine WBC (Auto) 12/16/17 12/16/17 12/16/17 14:15 17:51 21:14 WBC RBC Hgb Hct MCV MCH MCHC Plt Count Seg Neuts % (Manual) Lymphocytes % (Manual) Monocytes % (Manual) Nucleated RBC % Seg Neutrophils # Man Lymphocytes # (Manual) Monocytes # (Manual) APTT POC ABG pH POC ABG pCO2 POC ABG pO2 VBG pH Sodium Chloride Carbon Dioxide BUN Creatinine Glucose POC Glucose 279 H 272 H 260 H Lactic Acid Calcium Total Bilirubin AST ALT C-Reactive Protein Albumin Triglycerides Amylase Lipase Urine WBC (Auto) 12/17/17 12/17/17 12/17/17 02:41 04:28 04:28 WBC 19.1 H RBC 3.50 L Hgb 11.4 L Hct 35.3 L MCV 101 H MCH 33 H MCHC Plt Count 65 L Seg Neuts % (Manual) Lymphocytes % (Manual) Monocytes % (Manual) Nucleated RBC % Seg Neutrophils # Man Lymphocytes # (Manual) Monocytes # (Manual) APTT POC ABG pH POC ABG pCO2 POC ABG pO2 VBG pH Sodium 153 H Chloride 111.2 H Carbon Dioxide 31 H BUN 28 H Creatinine Glucose 248 H POC Glucose 300 H Lactic Acid Calcium Total Bilirubin AST ALT C-Reactive Protein Albumin Triglycerides Amylase Lipase Urine WBC (Auto) 12/17/17 12/17/17 12/17/17 05:15 05:38 10:16 WBC RBC Hgb Hct MCV MCH MCHC Plt Count Seg Neuts % (Manual) Lymphocytes % (Manual) Monocytes % (Manual) Nucleated RBC % Seg Neutrophils # Man Lymphocytes # (Manual) Monocytes # (Manual) APTT POC ABG pH POC ABG pCO2 50.3 H POC ABG pO2 120 H VBG pH Sodium Chloride Carbon Dioxide BUN Creatinine Glucose POC Glucose 231 H 196 H Lactic Acid Calcium Total Bilirubin AST ALT C-Reactive Protein Albumin Triglycerides Amylase Lipase Urine WBC (Auto) 12/17/17 12/17/17 12/17/17 14:22 18:14 21:35 WBC RBC Hgb Hct MCV MCH MCHC Plt Count Seg Neuts % (Manual) Lymphocytes % (Manual) Monocytes % (Manual) Nucleated RBC % Seg Neutrophils # Man Lymphocytes # (Manual) Monocytes # (Manual) APTT POC ABG pH POC ABG pCO2 POC ABG pO2 VBG pH Sodium Chloride Carbon Dioxide BUN Creatinine Glucose POC Glucose 234 H 215 H 159 H Lactic Acid Calcium Total Bilirubin AST ALT C-Reactive Protein Albumin Triglycerides Amylase Lipase Urine WBC (Auto) 12/18/17 12/18/17 12/18/17 00:53 02:58 06:03 WBC RBC Hgb Hct MCV MCH MCHC Plt Count Seg Neuts % (Manual) Lymphocytes % (Manual) Monocytes % (Manual) Nucleated RBC % Seg Neutrophils # Man Lymphocytes # (Manual) Monocytes # (Manual) APTT POC ABG pH POC ABG pCO2 56.4 H POC ABG pO2 46 L VBG pH Sodium Chloride Carbon Dioxide BUN Creatinine Glucose POC Glucose 176 H 143 H Lactic Acid Calcium Total Bilirubin AST ALT C-Reactive Protein Albumin Triglycerides Amylase Lipase Urine WBC (Auto) 12/18/17 12/18/17 12/18/17 07:59 09:20 09:20 WBC 27.4 H RBC 3.57 L Hgb 11.4 L Hct MCV 101 H MCH MCHC Plt Count 64 L Seg Neuts % (Manual) Lymphocytes % (Manual) Monocytes % (Manual) Nucleated RBC % Seg Neutrophils # Man Lymphocytes # (Manual) Monocytes # (Manual) APTT POC ABG pH POC ABG pCO2 POC ABG pO2 VBG pH Sodium 152 H Chloride 107.9 H Carbon Dioxide 34 H BUN 23 H Creatinine 0.7 L Glucose 181 H POC Glucose 197 H Lactic Acid Calcium Total Bilirubin AST ALT C-Reactive Protein Albumin Triglycerides Amylase Lipase Urine WBC (Auto) 12/18/17 12/18/17 12/18/17 10:22 15:03 18:15 WBC RBC Hgb Hct MCV MCH MCHC Plt Count Seg Neuts % (Manual) Lymphocytes % (Manual) Monocytes % (Manual) Nucleated RBC % Seg Neutrophils # Man Lymphocytes # (Manual) Monocytes # (Manual) APTT POC ABG pH POC ABG pCO2 POC ABG pO2 VBG pH Sodium Chloride Carbon Dioxide BUN Creatinine Glucose POC Glucose 195 H 225 H 238 H Lactic Acid Calcium Total Bilirubin AST ALT C-Reactive Protein Albumin Triglycerides Amylase Lipase Urine WBC (Auto) 12/18/17 12/18/17 12/19/17 18:29 21:53 00:18 WBC RBC Hgb Hct MCV MCH MCHC Plt Count Seg Neuts % (Manual) Lymphocytes % (Manual) Monocytes % (Manual) Nucleated RBC % Seg Neutrophils # Man Lymphocytes # (Manual) Monocytes # (Manual) APTT POC ABG pH 7.476 H POC ABG pCO2 50.4 H POC ABG pO2 158 H VBG pH Sodium Chloride Carbon Dioxide BUN Creatinine Glucose POC Glucose 231 H 263 H Lactic Acid Calcium Total Bilirubin AST ALT C-Reactive Protein Albumin Triglycerides Amylase Lipase Urine WBC (Auto) 12/19/17 12/19/17 12/19/17 02:09 04:07 04:07 WBC 25.9 H RBC 3.25 L Hgb 10.6 L Hct 32.8 L MCV 101 H MCH 33 H MCHC Plt Count 67 L Seg Neuts % (Manual) Lymphocytes % (Manual) 4.0 L Monocytes % (Manual) Nucleated RBC % Seg Neutrophils # Man 14.8 H Lymphocytes # (Manual) 1.0 L Monocytes # (Manual) APTT POC ABG pH POC ABG pCO2 POC ABG pO2 VBG pH Sodium 148 H Chloride Carbon Dioxide BUN 31 H Creatinine Glucose 314 H POC Glucose 300 H Lactic Acid Calcium 8.1 L Total Bilirubin AST ALT C-Reactive Protein Albumin Triglycerides Amylase Lipase Urine WBC (Auto) 12/19/17 12/19/17 12/19/17 05:15 05:41 07:57 WBC RBC Hgb Hct MCV MCH MCHC Plt Count Seg Neuts % (Manual) Lymphocytes % (Manual) Monocytes % (Manual) Nucleated RBC % Seg Neutrophils # Man Lymphocytes # (Manual) Monocytes # (Manual) APTT POC ABG pH 7.507 H POC ABG pCO2 POC ABG pO2 VBG pH Sodium Chloride Carbon Dioxide BUN Creatinine Glucose POC Glucose 331 H 307 H Lactic Acid Calcium Total Bilirubin AST ALT C-Reactive Protein Albumin Triglycerides Amylase Lipase Urine WBC (Auto) 12/19/17 12/19/17 12/19/17 10:21 14:48 17:59 WBC RBC Hgb Hct MCV MCH MCHC Plt Count Seg Neuts % (Manual) Lymphocytes % (Manual) Monocytes % (Manual) Nucleated RBC % Seg Neutrophils # Man Lymphocytes # (Manual) Monocytes # (Manual) APTT POC ABG pH POC ABG pCO2 POC ABG pO2 VBG pH Sodium Chloride Carbon Dioxide BUN Creatinine Glucose POC Glucose 358 H 327 H 355 H Lactic Acid Calcium Total Bilirubin AST ALT C-Reactive Protein Albumin Triglycerides Amylase Lipase Urine WBC (Auto) 12/19/17 12/20/17 12/20/17 21:38 02:21 03:42 WBC RBC Hgb Hct MCV MCH MCHC Plt Count Seg Neuts % (Manual) Lymphocytes % (Manual) Monocytes % (Manual) Nucleated RBC % Seg Neutrophils # Man Lymphocytes # (Manual) Monocytes # (Manual) APTT POC ABG pH 7.494 H POC ABG pCO2 POC ABG pO2 VBG pH Sodium Chloride Carbon Dioxide BUN Creatinine Glucose POC Glucose 329 H 354 H Lactic Acid Calcium Total Bilirubin AST ALT C-Reactive Protein Albumin Triglycerides Amylase Lipase Urine WBC (Auto) 12/20/17 12/20/17 12/20/17 04:08 04:08 04:08 WBC 22.7 H RBC 3.26 L Hgb 10.6 L Hct 32.9 L MCV 101 H MCH 33 H MCHC Plt Count 78 L Seg Neuts % (Manual) 80.0 H Lymphocytes % (Manual) 6.0 L Monocytes % (Manual) Nucleated RBC % Seg Neutrophils # Man 18.2 H Lymphocytes # (Manual) Monocytes # (Manual) APTT POC ABG pH POC ABG pCO2 POC ABG pO2 VBG pH Sodium Chloride Carbon Dioxide 31 H BUN 30 H Creatinine 0.6 L Glucose 365 H POC Glucose Lactic Acid Calcium Total Bilirubin AST ALT C-Reactive Protein Albumin Triglycerides 981 H Amylase Lipase Urine WBC (Auto) 12/20/17 12/20/17 12/20/17 05:15 10:47 13:40 WBC RBC Hgb Hct MCV MCH MCHC Plt Count Seg Neuts % (Manual) Lymphocytes % (Manual) Monocytes % (Manual) Nucleated RBC % Seg Neutrophils # Man Lymphocytes # (Manual) Monocytes # (Manual) APTT POC ABG pH POC ABG pCO2 POC ABG pO2 VBG pH Sodium Chloride Carbon Dioxide BUN Creatinine Glucose POC Glucose 342 H 330 H Lactic Acid Calcium Total Bilirubin AST ALT C-Reactive Protein 7.10 H Albumin Triglycerides Amylase Lipase Urine WBC (Auto) 12/20/17 12/20/17 12/20/17 13:40 14:52 16:55 WBC RBC Hgb Hct MCV MCH MCHC Plt Count Seg Neuts % (Manual) Lymphocytes % (Manual) Monocytes % (Manual) Nucleated RBC % Seg Neutrophils # Man Lymphocytes # (Manual) Monocytes # (Manual) APTT POC ABG pH 7.484 H POC ABG pCO2 POC ABG pO2 VBG pH Sodium Chloride Carbon Dioxide BUN Creatinine Glucose POC Glucose 293 H Lactic Acid Calcium Total Bilirubin AST ALT C-Reactive Protein Albumin Triglycerides 1042 H Amylase Lipase Urine WBC (Auto) 12/20/17 12/20/17 12/21/17 18:00 21:58 02:05 WBC RBC Hgb Hct MCV MCH MCHC Plt Count Seg Neuts % (Manual) Lymphocytes % (Manual) Monocytes % (Manual) Nucleated RBC % Seg Neutrophils # Man Lymphocytes # (Manual) Monocytes # (Manual) APTT POC ABG pH POC ABG pCO2 POC ABG pO2 VBG pH Sodium Chloride Carbon Dioxide BUN Creatinine Glucose POC Glucose 268 H 272 H 229 H Lactic Acid Calcium Total Bilirubin AST ALT C-Reactive Protein Albumin Triglycerides Amylase Lipase Urine WBC (Auto) 12/21/17 12/21/17 12/21/17 03:59 06:23 08:57 WBC RBC Hgb Hct MCV MCH MCHC Plt Count Seg Neuts % (Manual) Lymphocytes % (Manual) Monocytes % (Manual) Nucleated RBC % Seg Neutrophils # Man Lymphocytes # (Manual) Monocytes # (Manual) APTT POC ABG pH 7.474 H POC ABG pCO2 POC ABG pO2 71 L VBG pH Sodium Chloride Carbon Dioxide BUN Creatinine Glucose POC Glucose 182 H 217 H Lactic Acid Calcium Total Bilirubin AST ALT C-Reactive Protein Albumin Triglycerides Amylase Lipase Urine WBC (Auto) Chest x-ray: report reviewed, image reviewed
[2017-12-21] MEDS: APRESOLINE IV PRN (13:46)
--- NOTE | 2017-12-21 14:27 | Progress Note ---
Assessment and Plan Acute hypoxic respiratory failure - suspected due to ARDS/aspiration pneumonia: on iv cefepime/flagyl/vancomycin Suspected ARDS: - Pulmonology is following, on vent - CXR showing improvement Sepsis with Aspiration pneumonia ?, poa: - on IV antibiotics, repeat blood cx negative - consulted ID, appreciate recommendation Alcohol abuse: sedated, cont iv thiamine Hypotension resolved with ivfs and iv steroids Thrombocytopenia, - severe most likely due to sepsis: hold heparin Hypernatremia - cont free water with TF, monitor BMP, improving DM type 2- cont long acting and SSI, increased lentus to 20 unit daily DVT prophylaxis: scd only, due to thrombocytopenia Brief History: Patient is a 47 yo man with a history of tobacco dependency, alcohol abuse, dm type 2, hypertension and asthma who presented to [facility] ED with SOB and found to be severely hypoxic, failed bipap and was intubated. There is report of n/v during and after intubation. Hospitalist Physical GEN: Ill-appearing HEENT: NCAT, pupils react, ET tube, NG tube in place NECK: supple, CVS/HEART:regular tachy NORMAL S1S2, pulses present bilaterally CHEST/LUNGS: Symmetrical chest expansion, good air entry bilaterally GI/Abdomen: soft, distended, good bowel sounds, no guarding or rebound /Bladder: condom cath in place EXT/Skin: Dependent edema MSK: sedated Neuro: sedated Psych: sedated Subjective Date of service: 12/21/17 Principal diagnosis: ARDS Interval history: Pt seen and examined Remained intubated and sedated Tolerating tube feeding at bedside Objective - Constitutional Vitals: Vital Signs - 12hr 12/21/17 12/21/17 12/21/17 03:00 03:44 04:00 Temperature 99.0 F Pulse Rate 79 81 Pulse Rate [ Anterior Bilateral Throughout] Pulse Rate [ From Monitor] Respiratory 11 L Rate Respiratory Rate [Anterior Bilateral Throughout] Blood Pressure 165/90 153/89 O2 Sat by Pulse 91 96 Oximetry 12/21/17 12/21/17 12/21/17 04:01 05:01 06:01 Temperature Pulse Rate 85 75 79 Pulse Rate [ Anterior Bilateral Throughout] Pulse Rate [ From Monitor] Respiratory 11 L 11 L 22 Rate Respiratory Rate [Anterior Bilateral Throughout] Blood Pressure 158/81 158/90 163/94 O2 Sat by Pulse 93 94 93 Oximetry 12/21/17 12/21/1718 07:01 08:00 08:10 Temperature 98.7 F Pulse Rate 73 85 Pulse Rate [ 64 Anterior Bilateral Throughout] Pulse Rate [ 86 From Monitor] Respiratory 13 24 Rate Respiratory 26 H Rate [Anterior Bilateral Throughout] Blood Pressure 163/94 159/87 O2 Sat by Pulse 92 97 Oximetry 12/21/17 12/21/17 12/21/17 08:20 08:48 09:00 Temperature Pulse Rate 91 H 99 H Pulse Rate [ 64 Anterior Bilateral Throughout] Pulse Rate [ From Monitor] Respiratory 15 Rate Respiratory 18 Rate [Anterior Bilateral Throughout] Blood Pressure 159/87 159/87 O2 Sat by Pulse 99 92 Oximetry 12/21/17 12/21/17 12/21/17 09:11 10:06 11:00 Temperature Pulse Rate 91 H 61 Pulse Rate [ Anterior Bilateral Throughout] Pulse Rate [ From Monitor] Respiratory 20 Rate Respiratory Rate [Anterior Bilateral Throughout] Blood Pressure 140/85 140/85 169/79 O2 Sat by Pulse 95 93 Oximetry 12/21/17 12/21/17 12/21/17 12:00 13:00 13:46 Temperature 98.4 F Pulse Rate 62 64 66 Pulse Rate [ Anterior Bilateral Throughout] Pulse Rate [ 65 From Monitor] Respiratory 22 24 Rate Respiratory Rate [Anterior Bilateral Throughout] Blood Pressure 171/83 167/84 165/84 O2 Sat by Pulse 92 92 Oximetry - Labs CBC & Chem 7: 12/20/17 04:08 12/20/17 04:08 Labs: Abnormal lab results 12/20/17 12/20/17 12/20/17 Range/Units 13:40 14:52 16:55 POC ABG pH 7.484 H (7.35-7.45) POC ABG pO2 (80-105) POC Glucose 293 H (70-105) Triglycerides 1042 H (2-149) mg/dL 12/20/17 12/20/17 12/21/17 Range/Units 18:00 21:58 02:05 POC ABG pH (7.35-7.45) POC ABG pO2 (80-105) POC Glucose 268 H 272 H 229 H (70-105) Triglycerides (2-149) mg/dL 12/21/17 12/21/17 12/21/17 Range/Units 03:59 06:23 08:57 POC ABG pH 7.474 H (7.35-7.45) POC ABG pO2 71 L (80-105) POC Glucose 182 H 217 H (70-105) Triglycerides (2-149) mg/dL 12/21/17 Range/Units 13:59 POC ABG pH (7.35-7.45) POC ABG pO2 (80-105) POC Glucose 185 H (70-105) Triglycerides (2-149) mg/dL
[2017-12-21] MEDS: MIDAZOLAM 100 MG in NACL 0.9% 80 ML IV SCH (21:18)
[2017-12-21 22:08] LABS: ANA Screen, IFA Negative (Negative)
[2017-12-22] MEDS: DEXMEDETOMIDINE 200 MCG in NACL 0.9% 48 ML IV SCH ×9 (00:23→20:08)
[2017-12-22] MEDS: DUONEB *Not for PRN Use IH SCH ×4 (01:47→19:45)
[2017-12-22] MEDS: HumaLOG SUB-Q SCH ×6 (02:05→22:09)
[2017-12-22] MEDS: DILAUDID IV PRN ×3 (04:21→20:09)
[2017-12-22] MEDS: VANCOMYCIN 1,500 MG in NACL 0.9% 500 ML 500 ML IV SCH ×3 (04:23→20:09)
[2017-12-22] MEDS: DILAUDID PO SCH ×4 (05:53→23:41)
[2017-12-22] MEDS: FLAGYL 500 MG/100 ML 500 MG/100 ML BAG IV SCH ×3 (05:53→21:18)
[2017-12-22] MEDS: MAXIPIME 2 GM in NACL 0.9% 20 ML IV SCH ×3 (05:54→21:18)
[2017-12-22] MEDS: ATIVAN IV PRN ×7 (05:57→23:41)
[2017-12-22] MEDS: LOPRESSOR PO SCH ×2 (09:13→21:18)
[2017-12-22] MEDS: VITAMIN B-1 PO SCH (09:14)
[2017-12-22] MEDS: LANTUS SUB-Q SCH (09:14)
[2017-12-22] MEDS: DULCOLAX PR SCH (09:15)
[2017-12-22] MEDS: SENOKOT S PO SCH ×2 (09:15→21:19)
[2017-12-22] MEDS: PEPCID PO SCH ×2 (09:16→21:18)
[2017-12-22] MEDS: SODIUM CHLORIDE FLUSH SYRINGE 10 ML IV SCH ×2 (09:16→21:19)
[2017-12-22 10:48] LABS: Hematocrit 34.2 % (35.5-45.6); Hemoglobin 11.2 gm/dl (11.8-15.2); Mean Corpuscular HGB Conc 33 % (32-34); Mean Corpuscular Hemoglobin 33 pg (28-32); Mean Corpuscular Volume 99 fl (84-94); Platelet Count 97 K/mm3 (140-440); Red Blood Count 3.44 M/mm3 (3.65-5.03); Red Cell Distribution Width 13.1 % (13.2-15.2)
[2017-12-22 11:10] LABS: BUN/Creatinine Ratio 36; Blood Urea Nitrogen 25 mg/dL (9-20); Calcium 8.1 mg/dL (8.4-10.2); Hemolysis Index 19
[2017-12-22 11:42] LABS: Band Neutrophils # (Manual) 0.4 K/mm3; Basophils % (Manual) 0 % (0.0-1.8); Eosinophils % (Manual) 0 % (0.0-4.3); Myelocytes # (Manual) 0.6 K/mm3; RBC Morphology Normal; Total Cells Counted 200
[2017-12-22 11:43] LABS: Platelet Estimate Consistent w Auto
[2017-12-22] MEDS: TYLENOL PO PRN (13:20)
[2017-12-22] MEDS ORDERED: POTASSIUM CHLORIDE FEEDTUBE ONE (13:31)
[2017-12-22] MEDS ORDERED: NACL 0.45% 1000 ML 1,000 ML IV SCH (14:00)
--- NOTE | 2017-12-22 14:00 | Progress Note ---
Assessment and Plan Acute hypoxic respiratory failure - suspected due to ARDS/aspiration pneumonia: on iv cefepime/flagyl/vancomycin Suspected ARDS: - Pulmonology is following, on vent - CXR showing improvement Sepsis with Aspiration pneumonia ?, poa: - on IV antibiotics, repeat blood cx negative - consulted ID, appreciate recommendation Alcohol abuse: sedated, cont iv thiamine Hypotension resolved with ivfs and iv steroids Thrombocytopenia, - severe most likely due to sepsis: hold heparin Hypernatremia - cont free water with TF, Na level slightly elevated today will place on hypotonic iv fluid hypokalemia, will replace DM type 2- cont long acting and SSI, increased lentus to 20 unit daily DVT prophylaxis: scd only, due to thrombocytopenia Brief History: Patient is a 47 yo man with a history of tobacco dependency, alcohol abuse, dm type 2, hypertension and asthma who presented to [facility] with SOB and found to be severely hypoxic, failed bipap and was intubated. There is report of n/v during and after intubation. Hospitalist Physical GEN: Ill-appearing HEENT: NCAT, pupils react, ET tube, NG tube in place NECK: supple, CVS/HEART:regular tachy NORMAL S1S2, pulses present bilaterally CHEST/LUNGS: Symmetrical chest expansion, good air entry bilaterally GI/Abdomen: soft, distended, good bowel sounds, no guarding or rebound /Bladder: condom cath in place EXT/Skin: Dependent edema MSK: sedated Neuro: sedated Psych: sedated Subjective Date of service: 12/15/17 Principal diagnosis: ARDS Interval history: Pt seen and examined Remained intubated and sedated Tolerating tube feeding at bedside cont to spike low grade temp Objective - Constitutional Vitals: Vital Signs - 12hr 12/22/17 12/22/17 12/22/17 02:03 03:00 04:00 Temperature 100.1 F H Pulse Rate 83 Pulse Rate [ 83 Anterior Bilateral Throughout] Pulse Rate [ From Monitor] Respiratory 17 Rate Respiratory 25 H Rate [Anterior Bilateral Throughout] Blood Pressure 158/82 O2 Sat by Pulse 94 96 Oximetry 12/22/17 12/22/17 12/22/17 04:01 04:21 04:36 Temperature Pulse Rate 68 78 Pulse Rate [ Anterior Bilateral Throughout] Pulse Rate [ From Monitor] Respiratory 24 24 Rate Respiratory Rate [Anterior Bilateral Throughout] Blood Pressure 195/95 168/99 O2 Sat by Pulse 94 99 Oximetry 12/22/17 12/22/17 12/22/17 05:00 05:53 06:00 Temperature Pulse Rate 83 88 Pulse Rate [ Anterior Bilateral Throughout] Pulse Rate [ From Monitor] Respiratory 21 16 15 Rate Respiratory Rate [Anterior Bilateral Throughout] Blood Pressure 132/77 159/84 O2 Sat by Pulse 93 96 Oximetry 12/22/17 12/22/17 12/22/17 07:00 08:00 08:44 Temperature 102.7 F H Pulse Rate 77 93 H 77 Pulse Rate [ 89 Anterior Bilateral Throughout] Pulse Rate [ 101 H From Monitor] Respiratory 26 H 12 Rate Respiratory 18 Rate [Anterior Bilateral Throughout] Blood Pressure 149/81 139/65 163/87 O2 Sat by Pulse 94 96 100 Oximetry 12/22/17 12/22/17 12/22/17 09:00 09:13 10:00 Temperature Pulse Rate 86 88 81 Pulse Rate [ Anterior Bilateral Throughout] Pulse Rate [ From Monitor] Respiratory 22 12 Rate Respiratory Rate [Anterior Bilateral Throughout] Blood Pressure 142/80 142/80 137/81 O2 Sat by Pulse 98 97 Oximetry 12/22/17 12/22/17 12/22/17 11:01 12:00 13:00 Temperature 102.7 F H Pulse Rate 89 77 87 Pulse Rate [ Anterior Bilateral Throughout] Pulse Rate [ From Monitor] Respiratory 19 26 H 21 Rate Respiratory Rate [Anterior Bilateral Throughout] Blood Pressure 137/81 178/90 153/90 O2 Sat by Pulse 92 96 93 Oximetry 12/22/17 13:11 Temperature Pulse Rate 85 Pulse Rate [ Anterior Bilateral Throughout] Pulse Rate [ From Monitor] Respiratory Rate Respiratory Rate [Anterior Bilateral Throughout] Blood Pressure 153/90 O2 Sat by Pulse 996 H Oximetry - Labs CBC & Chem 7: 12/22/17 10:34 12/22/17 10:34 Labs: Abnormal lab results 12/21/17 12/21/17 12/21/17 Range/Units 18:00 21:20 23:48 WBC (4.5-11.0) K/mm3 RBC (3.65-5.03) M/mm3 Hgb (11.8-15.2) gm/dl Hct (35.5-45.6) % MCV (84-94) fl MCH (28-32) pg RDW (13.2-15.2) % Plt Count (140-440) K/mm3 Seg Neuts % (Manual) (40.0-70.0) % Lymphocytes % (Manual) (13.4-35.0) % Seg Neutrophils # Man (1.8-7.7) K/mm3 POC ABG pH (7.35-7.45) POC ABG pO2 (80-105) Sodium (137-145) mmol/L Potassium (3.6-5.0) mmol/L BUN (9-20) mg/dL Creatinine (0.8-1.5) mg/dL Glucose (75-100) mg/dL POC Glucose 176 H 187 H 126 H (70-105) Calcium (8.4-10.2) mg/dL 12/22/17 12/22/17 12/22/17 Range/Units 04:39 05:30 09:12 WBC (4.5-11.0) K/mm3 RBC (3.65-5.03) M/mm3 Hgb (11.8-15.2) gm/dl Hct (35.5-45.6) % MCV (84-94) fl MCH (28-32) pg RDW (13.2-15.2) % Plt Count (140-440) K/mm3 Seg Neuts % (Manual) (40.0-70.0) % Lymphocytes % (Manual) (13.4-35.0) % Seg Neutrophils # Man (1.8-7.7) K/mm3 POC ABG pH 7.528 H (7.35-7.45) POC ABG pO2 63 L (80-105) Sodium (137-145) mmol/L Potassium (3.6-5.0) mmol/L BUN (9-20) mg/dL Creatinine (0.8-1.5) mg/dL Glucose (75-100) mg/dL POC Glucose 117 H 168 H (70-105) Calcium (8.4-10.2) mg/dL 12/22/17 12/22/17 Range/Units 10:34 10:34 WBC 29.5 H (4.5-11.0) K/mm3 RBC 3.44 L (3.65-5.03) M/mm3 Hgb 11.2 L (11.8-15.2) gm/dl Hct 34.2 L (35.5-45.6) % MCV 99 H (84-94) fl MCH 33 H (28-32) pg RDW 13.1 L (13.2-15.2) % Plt Count 97 L (140-440) K/mm3 Seg Neuts % (Manual) 88.0 H (40.0-70.0) % Lymphocytes % (Manual) 5.0 L (13.4-35.0) % Seg Neutrophils # Man 26.0 H (1.8-7.7) K/mm3 POC ABG pH (7.35-7.45) POC ABG pO2 (80-105) Sodium 146 H (137-145) mmol/L Potassium 3.1 L (3.6-5.0) mmol/L BUN 25 H (9-20) mg/dL Creatinine 0.7 L (0.8-1.5) mg/dL Glucose 146 H (75-100) mg/dL POC Glucose (70-105) Calcium 8.1 L (8.4-10.2) mg/dL
--- NOTE | 2017-12-22 14:27 | Progress Note ---
Assessment and Plan - Patient Problems (1) Sepsis Current Visit: Yes Status: Acute (2) Haemophilus influenzae infection Current Visit: Yes Status: Acute (3) Acute respiratory failure Current Visit: Yes Status: Acute (4) Acute respiratory distress syndrome (ARDS) Current Visit: Yes Status: Acute Subjective Principal diagnosis: ARDS Interval history: on vent Objective Vital Signs - 12hr 12/22/17 12/22/17 12/22/17 03:00 04:00 04:01 Temperature 100.1 F H Pulse Rate 83 68 Pulse Rate [ Anterior Bilateral Throughout] Pulse Rate [ From Monitor] Respiratory 17 24 Rate Respiratory Rate [Anterior Bilateral Throughout] Blood Pressure 158/82 195/95 O2 Sat by Pulse 94 96 94 Oximetry 12/22/17 12/22/17 12/22/17 04:21 04:36 05:00 Temperature Pulse Rate 78 83 Pulse Rate [ Anterior Bilateral Throughout] Pulse Rate [ From Monitor] Respiratory 24 21 Rate Respiratory Rate [Anterior Bilateral Throughout] Blood Pressure 168/99 132/77 O2 Sat by Pulse 99 93 Oximetry 12/22/17 12/22/17 12/22/17 05:53 06:00 07:00 Temperature Pulse Rate 88 77 Pulse Rate [ Anterior Bilateral Throughout] Pulse Rate [ From Monitor] Respiratory 16 15 26 H Rate Respiratory Rate [Anterior Bilateral Throughout] Blood Pressure 159/84 149/81 O2 Sat by Pulse 96 94 Oximetry 12/22/17 12/22/17 12/22/17 08:00 08:44 09:00 Temperature 102.7 F H Pulse Rate 93 H 77 86 Pulse Rate [ 89 Anterior Bilateral Throughout] Pulse Rate [ 101 H From Monitor] Respiratory 12 22 Rate Respiratory 18 Rate [Anterior Bilateral Throughout] Blood Pressure 139/65 163/87 142/80 O2 Sat by Pulse 96 100 98 Oximetry 12/22/17 12/22/17 12/22/17 09:13 10:00 11:01 Temperature Pulse Rate 88 81 89 Pulse Rate [ Anterior Bilateral Throughout] Pulse Rate [ From Monitor] Respiratory 12 19 Rate Respiratory Rate [Anterior Bilateral Throughout] Blood Pressure 142/80 137/81 137/81 O2 Sat by Pulse 97 92 Oximetry 12/22/17 12/22/17 12/22/17 12:00 13:00 13:11 Temperature 102.7 F H Pulse Rate 77 87 85 Pulse Rate [ Anterior Bilateral Throughout] Pulse Rate [ From Monitor] Respiratory 26 H 21 Rate Respiratory Rate [Anterior Bilateral Throughout] Blood Pressure 178/90 153/90 153/90 O2 Sat by Pulse 96 93 996 H Oximetry Constitutional: other (intubated, sedated) Eyes: non-icteric ENT: oropharynx moist Neck: supple Effort: normal Ascultation: Right: rales, Bilateral: diminished breath sounds, other (coarse BS bilaterally) Cardiovascular: regular rate and rhythm, other (tachycardic) Gastrointestinal: normoactive bowel sounds, soft, non-tender, non-distended, other (obese) Integumentary: normal Extremities: no cyanosis, no edema, pink and warm Neurologic: unable to assess (due to sedation) Psychiatric: other (not able to assess) CBC and BMP: 12/22/17 10:34 12/22/17 10:34 ABG, PT/INR, D-dimer: ABG POC ABG pH 7.528 (7.35-7.45) H 12/22/17 04:39 POC ABG pCO2 36.2 (35-45) 12/22/17 04:39 POC ABG pO2 63 (80-105) L 12/22/17 04:39 POC ABG HCO3 30.1 12/22/17 04:39 POC ABG Total CO2 31 12/22/17 04:39 POC ABG O2 Sat 94 12/22/17 04:39 PT/INR, D-dimer PT 14.9 Sec. (12.2-14.9) 12/15/17 04:05 INR 1.11 (0.87-1.13) 12/15/17 04:05 Abnormal lab findings: Abnormal Labs 12/12/17 12/12/17 12/12/17 18:57 19:02 19:02 WBC RBC Hgb Hct MCV 96 H MCH 34 H MCHC 35 H RDW Plt Count 46 L Seg Neuts % (Manual) 77.0 H Lymphocytes % (Manual) 13.0 L Monocytes % (Manual) Nucleated RBC % Seg Neutrophils # Man Lymphocytes # (Manual) 0.9 L Monocytes # (Manual) APTT POC ABG pH POC ABG pCO2 POC ABG pO2 VBG pH Sodium Potassium Chloride Carbon Dioxide BUN Creatinine Glucose POC Glucose 321 H Lactic Acid 4.00 H* Calcium Total Bilirubin AST ALT C-Reactive Protein Albumin Triglycerides Amylase Lipase Urine WBC (Auto) 03/12/12/17 12/12/17 19:02 19:18 20:55 WBC RBC Hgb Hct MCV MCH MCHC RDW Plt Count Seg Neuts % (Manual) Lymphocytes % (Manual) Monocytes % (Manual) Nucleated RBC % Seg Neutrophils # Man Lymphocytes # (Manual) Monocytes # (Manual) APTT POC ABG pH POC ABG pCO2 POC ABG pO2 VBG pH 7.472 H Sodium 124 L Potassium Chloride 80.0 L Carbon Dioxide 20 L BUN Creatinine Glucose 382 H POC Glucose 283 H Lactic Acid Calcium 8.1 L Total Bilirubin 4.60 H AST 93 H ALT 112 H C-Reactive Protein Albumin 2.5 L Triglycerides Amylase Lipase Urine WBC (Auto) 12/12/17 12/13/17 12/13/17 21:41 00:45 01:29 WBC RBC Hgb Hct MCV MCH MCHC RDW Plt Count Seg Neuts % (Manual) Lymphocytes % (Manual) Monocytes % (Manual) Nucleated RBC % Seg Neutrophils # Man Lymphocytes # (Manual) Monocytes # (Manual) APTT POC ABG pH POC ABG pCO2 POC ABG pO2 VBG pH Sodium Potassium Chloride Carbon Dioxide BUN Creatinine Glucose POC Glucose Lactic Acid 4.20 H* 2.70 H* 3.30 H* Calcium Total Bilirubin AST ALT C-Reactive Protein Albumin Triglycerides Amylase Lipase Urine WBC (Auto) 12/13/17 12/13/17 12/13/17 02:19 03:44 05:58 WBC RBC Hgb Hct MCV 97 H MCH 34 H MCHC 35 H RDW Plt Count 41 L Seg Neuts % (Manual) Lymphocytes % (Manual) 8.0 L Monocytes % (Manual) 8.0 H Nucleated RBC % Seg Neutrophils # Man Lymphocytes # (Manual) 0.6 L Monocytes # (Manual) APTT POC ABG pH 7.334 L POC ABG pCO2 POC ABG pO2 43 L VBG pH Sodium Potassium Chloride Carbon Dioxide BUN Creatinine Glucose POC Glucose Lactic Acid 2.60 H* Calcium Total Bilirubin AST ALT C-Reactive Protein Albumin Triglycerides Amylase Lipase Urine WBC (Auto) 12/13/17 12/13/17 12/13/17 05:58 05:58 05:58 WBC RBC Hgb Hct MCV MCH MCHC RDW Plt Count Seg Neuts % (Manual) Lymphocytes % (Manual) Monocytes % (Manual) Nucleated RBC % Seg Neutrophils # Man Lymphocytes # (Manual) Monocytes # (Manual) APTT POC ABG pH POC ABG pCO2 POC ABG pO2 VBG pH Sodium 132 L D Potassium Chloride 90.0 L Carbon Dioxide 20 L BUN Creatinine Glucose 346 H POC Glucose 298 H Lactic Acid 4.50 H* Calcium 8.2 L Total Bilirubin AST ALT C-Reactive Protein Albumin Triglycerides Amylase Lipase Urine WBC (Auto) 12/13/17 12/13/17 12/13/17 06:27 09:42 11:47 WBC RBC Hgb Hct MCV MCH MCHC RDW Plt Count Seg Neuts % (Manual) Lymphocytes % (Manual) Monocytes % (Manual) Nucleated RBC % Seg Neutrophils # Man Lymphocytes # (Manual) Monocytes # (Manual) APTT POC ABG pH 7.267 L 7.298 L POC ABG pCO2 50.4 H 51.3 H POC ABG pO2 47 L 43 L VBG pH Sodium Potassium Chloride Carbon Dioxide BUN Creatinine Glucose POC Glucose 376 H Lactic Acid Calcium Total Bilirubin AST ALT C-Reactive Protein Albumin Triglycerides Amylase Lipase Urine WBC (Auto) 12/13/17 12/13/17 12/13/17 12:03 13:47 13:47 WBC RBC Hgb Hct MCV MCH MCHC RDW Plt Count Seg Neuts % (Manual) Lymphocytes % (Manual) Monocytes % (Manual) Nucleated RBC % Seg Neutrophils # Man Lymphocytes # (Manual) Monocytes # (Manual) APTT POC ABG pH 7.264 L POC ABG pCO2 54.9 H POC ABG pO2 55 L VBG pH Sodium Potassium Chloride Carbon Dioxide BUN Creatinine Glucose POC Glucose Lactic Acid 2.80 H* Calcium Total Bilirubin AST ALT C-Reactive Protein Albumin Triglycerides Amylase 20 L Lipase 9 L Urine WBC (Auto) 12/13/17 12/13/17 12/13/17 15:36 17:39 21:47 WBC RBC Hgb Hct MCV MCH MCHC RDW Plt Count Seg Neuts % (Manual) Lymphocytes % (Manual) Monocytes % (Manual) Nucleated RBC % Seg Neutrophils # Man Lymphocytes # (Manual) Monocytes # (Manual) APTT POC ABG pH 7.229 L 7.225 L POC ABG pCO2 60.9 H 66.3 H POC ABG pO2 42 L 41 L VBG pH Sodium Potassium Chloride Carbon Dioxide BUN Creatinine Glucose POC Glucose 289 H Lactic Acid Calcium Total Bilirubin AST ALT C-Reactive Protein Albumin Triglycerides Amylase Lipase Urine WBC (Auto) 12/13/17 12/14/17 12/14/17 22:19 02:03 05:16 WBC RBC Hgb Hct MCV MCH MCHC RDW Plt Count Seg Neuts % (Manual) Lymphocytes % (Manual) Monocytes % (Manual) Nucleated RBC % Seg Neutrophils # Man Lymphocytes # (Manual) Monocytes # (Manual) APTT POC ABG pH 7.247 L POC ABG pCO2 61.2 H POC ABG pO2 53 L VBG pH Sodium Potassium Chloride Carbon Dioxide BUN Creatinine Glucose POC Glucose 274 H 295 H Lactic Acid Calcium Total Bilirubin AST ALT C-Reactive Protein Albumin Triglycerides Amylase Lipase Urine WBC (Auto) 12/14/17 12/14/17 12/14/17 05:32 12:04 16:22 WBC RBC Hgb Hct MCV MCH MCHC RDW Plt Count Seg Neuts % (Manual) Lymphocytes % (Manual) Monocytes % (Manual) Nucleated RBC % Seg Neutrophils # Man Lymphocytes # (Manual) Monocytes # (Manual) APTT POC ABG pH POC ABG pCO2 POC ABG pO2 VBG pH Sodium Potassium Chloride Carbon Dioxide BUN Creatinine Glucose POC Glucose 230 H 241 H 231 H Lactic Acid Calcium Total Bilirubin AST ALT C-Reactive Protein Albumin Triglycerides Amylase Lipase Urine WBC (Auto) 12/14/17 12/15/17 12/15/17 21:29 02:29 03:25 WBC RBC Hgb Hct MCV MCH MCHC RDW Plt Count Seg Neuts % (Manual) Lymphocytes % (Manual) Monocytes % (Manual) Nucleated RBC % Seg Neutrophils # Man Lymphocytes # (Manual) Monocytes # (Manual) APTT POC ABG pH 7.330 L POC ABG pCO2 55.3 H POC ABG pO2 59 L VBG pH Sodium Potassium Chloride Carbon Dioxide BUN Creatinine Glucose POC Glucose 258 H 246 H Lactic Acid Calcium Total Bilirubin AST ALT C-Reactive Protein Albumin Triglycerides Amylase Lipase Urine WBC (Auto) 12/15/17 12/15/17 12/15/17 04:05 04:05 04:05 WBC 15.0 H RBC 3.40 L Hgb 11.3 L D Hct 33.8 L D MCV 100 H MCH 33 H MCHC RDW Plt Count 48 L Seg Neuts % (Manual) Lymphocytes % (Manual) 3.0 L Monocytes % (Manual) Nucleated RBC % 2.0 H Seg Neutrophils # Man Lymphocytes # (Manual) 0.5 L Monocytes # (Manual) 0.9 H APTT 20.9 L POC ABG pH POC ABG pCO2 POC ABG pO2 VBG pH Sodium Potassium Chloride Carbon Dioxide BUN 27 H Creatinine Glucose 258 H POC Glucose Lactic Acid Calcium 8.1 L Total Bilirubin AST ALT C-Reactive Protein Albumin Triglycerides Amylase Lipase Urine WBC (Auto) 12/15/17 12/15/17 12/15/17 05:32 11:17 14:59 WBC RBC Hgb Hct MCV MCH MCHC RDW Plt Count Seg Neuts % (Manual) Lymphocytes % (Manual) Monocytes % (Manual) Nucleated RBC % Seg Neutrophils # Man Lymphocytes # (Manual) Monocytes # (Manual) APTT POC ABG pH POC ABG pCO2 POC ABG pO2 VBG pH Sodium Potassium Chloride Carbon Dioxide BUN Creatinine Glucose POC Glucose 247 H 268 H 233 H Lactic Acid Calcium Total Bilirubin AST ALT C-Reactive Protein Albumin Triglycerides Amylase Lipase Urine WBC (Auto) 12/15/17 12/15/17 12/15/17 17:00 18:59 21:37 WBC RBC Hgb Hct MCV MCH MCHC RDW Plt Count Seg Neuts % (Manual) Lymphocytes % (Manual) Monocytes % (Manual) Nucleated RBC % Seg Neutrophils # Man Lymphocytes # (Manual) Monocytes # (Manual) APTT POC ABG pH POC ABG pCO2 POC ABG pO2 VBG pH Sodium Potassium Chloride Carbon Dioxide BUN Creatinine Glucose POC Glucose 195 H 208 H Lactic Acid Calcium Total Bilirubin AST ALT C-Reactive Protein Albumin Triglycerides Amylase Lipase Urine WBC (Auto) 38.0 H 12/16/17 12/16/17 12/16/17 03:17 03:33 04:18 WBC 16.4 H RBC 3.50 L Hgb 11.3 L Hct 35.4 L MCV 101 H MCH MCHC RDW Plt Count 54 L Seg Neuts % (Manual) Lymphocytes % (Manual) Monocytes % (Manual) Nucleated RBC % Seg Neutrophils # Man Lymphocytes # (Manual) Monocytes # (Manual) APTT POC ABG pH POC ABG pCO2 47.7 H POC ABG pO2 VBG pH Sodium Potassium Chloride Carbon Dioxide BUN Creatinine Glucose POC Glucose 227 H Lactic Acid Calcium Total Bilirubin AST ALT C-Reactive Protein Albumin Triglycerides Amylase Lipase Urine WBC (Auto) 12/16/17 12/16/17 12/16/17 04:18 05:08 10:01 WBC RBC Hgb Hct MCV MCH MCHC RDW Plt Count Seg Neuts % (Manual) Lymphocytes % (Manual) Monocytes % (Manual) Nucleated RBC % Seg Neutrophils # Man Lymphocytes # (Manual) Monocytes # (Manual) APTT POC ABG pH POC ABG pCO2 POC ABG pO2 VBG pH Sodium 147 H Potassium Chloride 107.4 H Carbon Dioxide BUN 28 H Creatinine Glucose 240 H POC Glucose 227 H 190 H Lactic Acid Calcium 8.3 L Total Bilirubin AST ALT C-Reactive Protein Albumin Triglycerides Amylase Lipase Urine WBC (Auto) 12/16/17 12/16/17 12/16/17 14:15 17:51 21:14 WBC RBC Hgb Hct MCV MCH MCHC RDW Plt Count Seg Neuts % (Manual) Lymphocytes % (Manual) Monocytes % (Manual) Nucleated RBC % Seg Neutrophils # Man Lymphocytes # (Manual) Monocytes # (Manual) APTT POC ABG pH POC ABG pCO2 POC ABG pO2 VBG pH Sodium Potassium Chloride Carbon Dioxide BUN Creatinine Glucose POC Glucose 279 H 272 H 260 H Lactic Acid Calcium Total Bilirubin AST ALT C-Reactive Protein Albumin Triglycerides Amylase Lipase Urine WBC (Auto) 12/17/17 12/17/17 12/17/17 02:41 04:28 04:28 WBC 19.1 H RBC 3.50 L Hgb 11.4 L Hct 35.3 L MCV 101 H MCH 33 H MCHC RDW Plt Count 65 L Seg Neuts % (Manual) Lymphocytes % (Manual) Monocytes % (Manual) Nucleated RBC % Seg Neutrophils # Man Lymphocytes # (Manual) Monocytes # (Manual) APTT POC ABG pH POC ABG pCO2 POC ABG pO2 VBG pH Sodium 153 H Potassium Chloride 111.2 H Carbon Dioxide 31 H BUN 28 H Creatinine Glucose 248 H POC Glucose 300 H Lactic Acid Calcium Total Bilirubin AST ALT C-Reactive Protein Albumin Triglycerides Amylase Lipase Urine WBC (Auto) 12/17/17 12/17/17 12/17/17 05:15 05:38 10:16 WBC RBC Hgb Hct MCV MCH MCHC RDW Plt Count Seg Neuts % (Manual) Lymphocytes % (Manual) Monocytes % (Manual) Nucleated RBC % Seg Neutrophils # Man Lymphocytes # (Manual) Monocytes # (Manual) APTT POC ABG pH POC ABG pCO2 50.3 H POC ABG pO2 120 H VBG pH Sodium Potassium Chloride Carbon Dioxide BUN Creatinine Glucose POC Glucose 231 H 196 H Lactic Acid Calcium Total Bilirubin AST ALT C-Reactive Protein Albumin Triglycerides Amylase Lipase Urine WBC (Auto) 12/17/17 12/17/17 12/17/17 14:22 18:14 21:35 WBC RBC Hgb Hct MCV MCH MCHC RDW Plt Count Seg Neuts % (Manual) Lymphocytes % (Manual) Monocytes % (Manual) Nucleated RBC % Seg Neutrophils # Man Lymphocytes # (Manual) Monocytes # (Manual) APTT POC ABG pH POC ABG pCO2 POC ABG pO2 VBG pH Sodium Potassium Chloride Carbon Dioxide BUN Creatinine Glucose POC Glucose 234 H 215 H 159 H Lactic Acid Calcium Total Bilirubin AST ALT C-Reactive Protein Albumin Triglycerides Amylase Lipase Urine WBC (Auto) 12/18/17 12/18/17 12/18/17 00:53 02:58 06:03 WBC RBC Hgb Hct MCV MCH MCHC RDW Plt Count Seg Neuts % (Manual) Lymphocytes % (Manual) Monocytes % (Manual) Nucleated RBC % Seg Neutrophils # Man Lymphocytes # (Manual) Monocytes # (Manual) APTT POC ABG pH POC ABG pCO2 56.4 H POC ABG pO2 46 L VBG pH Sodium Potassium Chloride Carbon Dioxide BUN Creatinine Glucose POC Glucose 176 H 143 H Lactic Acid Calcium Total Bilirubin AST ALT C-Reactive Protein Albumin Triglycerides Amylase Lipase Urine WBC (Auto) 12/18/17 12/18/17 12/18/17 07:59 09:20 09:20 WBC 27.4 H RBC 3.57 L Hgb 11.4 L Hct MCV 101 H MCH MCHC RDW Plt Count 64 L Seg Neuts % (Manual) Lymphocytes % (Manual) Monocytes % (Manual) Nucleated RBC % Seg Neutrophils # Man Lymphocytes # (Manual) Monocytes # (Manual) APTT POC ABG pH POC ABG pCO2 POC ABG pO2 VBG pH Sodium 152 H Potassium Chloride 107.9 H Carbon Dioxide 34 H BUN 23 H Creatinine 0.7 L Glucose 181 H POC Glucose 197 H Lactic Acid Calcium Total Bilirubin AST ALT C-Reactive Protein Albumin Triglycerides Amylase Lipase Urine WBC (Auto) 12/18/17 12/18/17 12/18/17 10:22 15:03 18:15 WBC RBC Hgb Hct MCV MCH MCHC RDW Plt Count Seg Neuts % (Manual) Lymphocytes % (Manual) Monocytes % (Manual) Nucleated RBC % Seg Neutrophils # Man Lymphocytes # (Manual) Monocytes # (Manual) APTT POC ABG pH POC ABG pCO2 POC ABG pO2 VBG pH Sodium Potassium Chloride Carbon Dioxide BUN Creatinine Glucose POC Glucose 195 H 225 H 238 H Lactic Acid Calcium Total Bilirubin AST ALT C-Reactive Protein Albumin Triglycerides Amylase Lipase Urine WBC (Auto) 12/18/17 12/18/17 12/19/17 18:29 21:53 00:18 WBC RBC Hgb Hct MCV MCH MCHC RDW Plt Count Seg Neuts % (Manual) Lymphocytes % (Manual) Monocytes % (Manual) Nucleated RBC % Seg Neutrophils # Man Lymphocytes # (Manual) Monocytes # (Manual) APTT POC ABG pH 7.476 H POC ABG pCO2 50.4 H POC ABG pO2 158 H VBG pH Sodium Potassium Chloride Carbon Dioxide BUN Creatinine Glucose POC Glucose 231 H 263 H Lactic Acid Calcium Total Bilirubin AST ALT C-Reactive Protein Albumin Triglycerides Amylase Lipase Urine WBC (Auto) 12/19/17 12/19/17 12/19/17 02:09 04:07 04:07 WBC 25.9 H RBC 3.25 L Hgb 10.6 L Hct 32.8 L MCV 101 H MCH 33 H MCHC RDW Plt Count 67 L Seg Neuts % (Manual) Lymphocytes % (Manual) 4.0 L Monocytes % (Manual) Nucleated RBC % Seg Neutrophils # Man 14.8 H Lymphocytes # (Manual) 1.0 L Monocytes # (Manual) APTT POC ABG pH POC ABG pCO2 POC ABG pO2 VBG pH Sodium 148 H Potassium Chloride Carbon Dioxide BUN 31 H Creatinine Glucose 314 H POC Glucose 300 H Lactic Acid Calcium 8.1 L Total Bilirubin AST ALT C-Reactive Protein Albumin Triglycerides Amylase Lipase Urine WBC (Auto) 12/19/17 12/19/17 12/19/17 05:15 05:41 07:57 WBC RBC Hgb Hct MCV MCH MCHC RDW Plt Count Seg Neuts % (Manual) Lymphocytes % (Manual) Monocytes % (Manual) Nucleated RBC % Seg Neutrophils # Man Lymphocytes # (Manual) Monocytes # (Manual) APTT POC ABG pH 7.507 H POC ABG pCO2 POC ABG pO2 VBG pH Sodium Potassium Chloride Carbon Dioxide BUN Creatinine Glucose POC Glucose 331 H 307 H Lactic Acid Calcium Total Bilirubin AST ALT C-Reactive Protein Albumin Triglycerides Amylase Lipase Urine WBC (Auto) 12/19/17 12/19/17 12/19/17 10:21 14:48 17:59 WBC RBC Hgb Hct MCV MCH MCHC RDW Plt Count Seg Neuts % (Manual) Lymphocytes % (Manual) Monocytes % (Manual) Nucleated RBC % Seg Neutrophils # Man Lymphocytes # (Manual) Monocytes # (Manual) APTT POC ABG pH POC ABG pCO2 POC ABG pO2 VBG pH Sodium Potassium Chloride Carbon Dioxide BUN Creatinine Glucose POC Glucose 358 H 327 H 355 H Lactic Acid Calcium Total Bilirubin AST ALT C-Reactive Protein Albumin Triglycerides Amylase Lipase Urine WBC (Auto) 12/19/17 12/20/17 12/20/17 21:38 02:21 03:42 WBC RBC Hgb Hct MCV MCH MCHC RDW Plt Count Seg Neuts % (Manual) Lymphocytes % (Manual) Monocytes % (Manual) Nucleated RBC % Seg Neutrophils # Man Lymphocytes # (Manual) Monocytes # (Manual) APTT POC ABG pH 7.494 H POC ABG pCO2 POC ABG pO2 VBG pH Sodium Potassium Chloride Carbon Dioxide BUN Creatinine Glucose POC Glucose 329 H 354 H Lactic Acid Calcium Total Bilirubin AST ALT C-Reactive Protein Albumin Triglycerides Amylase Lipase Urine WBC (Auto) 12/20/17 12/20/17 12/20/17 04:08 04:08 04:08 WBC 22.7 H RBC 3.26 L Hgb 10.6 L Hct 32.9 L MCV 101 H MCH 33 H MCHC RDW Plt Count 78 L Seg Neuts % (Manual) 80.0 H Lymphocytes % (Manual) 6.0 L Monocytes % (Manual) Nucleated RBC % Seg Neutrophils # Man 18.2 H Lymphocytes # (Manual) Monocytes # (Manual) APTT POC ABG pH POC ABG pCO2 POC ABG pO2 VBG pH Sodium Potassium Chloride Carbon Dioxide 31 H BUN 30 H Creatinine 0.6 L Glucose 365 H POC Glucose Lactic Acid Calcium Total Bilirubin AST ALT C-Reactive Protein Albumin Triglycerides 981 H Amylase Lipase Urine WBC (Auto) 12/20/17 12/20/17 12/20/17 05:15 10:47 13:40 WBC RBC Hgb Hct MCV MCH MCHC RDW Plt Count Seg Neuts % (Manual) Lymphocytes % (Manual) Monocytes % (Manual) Nucleated RBC % Seg Neutrophils # Man Lymphocytes # (Manual) Monocytes # (Manual) APTT POC ABG pH POC ABG pCO2 POC ABG pO2 VBG pH Sodium Potassium Chloride Carbon Dioxide BUN Creatinine Glucose POC Glucose 342 H 330 H Lactic Acid Calcium Total Bilirubin AST ALT C-Reactive Protein 7.10 H Albumin Triglycerides Amylase Lipase Urine WBC (Auto) 12/20/17 12/20/17 12/20/17 13:40 14:52 16:55 WBC RBC Hgb Hct MCV MCH MCHC RDW Plt Count Seg Neuts % (Manual) Lymphocytes % (Manual) Monocytes % (Manual) Nucleated RBC % Seg Neutrophils # Man Lymphocytes # (Manual) Monocytes # (Manual) APTT POC ABG pH 7.484 H POC ABG pCO2 POC ABG pO2 VBG pH Sodium Potassium Chloride Carbon Dioxide BUN Creatinine Glucose POC Glucose 293 H Lactic Acid Calcium Total Bilirubin AST ALT C-Reactive Protein Albumin Triglycerides 1042 H Amylase Lipase Urine WBC (Auto) 12/20/17 12/20/17 12/21/17 18:00 21:58 02:05 WBC RBC Hgb Hct MCV MCH MCHC RDW Plt Count Seg Neuts % (Manual) Lymphocytes % (Manual) Monocytes % (Manual) Nucleated RBC % Seg Neutrophils # Man Lymphocytes # (Manual) Monocytes # (Manual) APTT POC ABG pH POC ABG pCO2 POC ABG pO2 VBG pH Sodium Potassium Chloride Carbon Dioxide BUN Creatinine Glucose POC Glucose 268 H 272 H 229 H Lactic Acid Calcium Total Bilirubin AST ALT C-Reactive Protein Albumin Triglycerides Amylase Lipase Urine WBC (Auto) 12/21/17 12/21/17 12/21/17 03:59 06:23 08:57 WBC RBC Hgb Hct MCV MCH MCHC RDW Plt Count Seg Neuts % (Manual) Lymphocytes % (Manual) Monocytes % (Manual) Nucleated RBC % Seg Neutrophils # Man Lymphocytes # (Manual) Monocytes # (Manual) APTT POC ABG pH 7.474 H POC ABG pCO2 POC ABG pO2 71 L VBG pH Sodium Potassium Chloride Carbon Dioxide BUN Creatinine Glucose POC Glucose 182 H 217 H Lactic Acid Calcium Total Bilirubin AST ALT C-Reactive Protein Albumin Triglycerides Amylase Lipase Urine WBC (Auto) 12/21/17 12/21/17 12/21/17 13:59 18:00 21:20 WBC RBC Hgb Hct MCV MCH MCHC RDW Plt Count Seg Neuts % (Manual) Lymphocytes % (Manual) Monocytes % (Manual) Nucleated RBC % Seg Neutrophils # Man Lymphocytes # (Manual) Monocytes # (Manual) APTT POC ABG pH POC ABG pCO2 POC ABG pO2 VBG pH Sodium Potassium Chloride Carbon Dioxide BUN Creatinine Glucose POC Glucose 185 H 176 H 187 H Lactic Acid Calcium Total Bilirubin AST ALT C-Reactive Protein Albumin Triglycerides Amylase Lipase Urine WBC (Auto) 12/21/17 12/22/17 12/22/17 23:48 04:39 05:30 WBC RBC Hgb Hct MCV MCH MCHC RDW Plt Count Seg Neuts % (Manual) Lymphocytes % (Manual) Monocytes % (Manual) Nucleated RBC % Seg Neutrophils # Man Lymphocytes # (Manual) Monocytes # (Manual) APTT POC ABG pH 7.528 H POC ABG pCO2 POC ABG pO2 63 L VBG pH Sodium Potassium Chloride Carbon Dioxide BUN Creatinine Glucose POC Glucose 126 H 117 H Lactic Acid Calcium Total Bilirubin AST ALT C-Reactive Protein Albumin Triglycerides Amylase Lipase Urine WBC (Auto) 12/22/17 12/22/17 12/22/17 09:12 10:34 10:34 WBC 29.5 H RBC 3.44 L Hgb 11.2 L Hct 34.2 L MCV 99 H MCH 33 H MCHC RDW 13.1 L Plt Count 97 L Seg Neuts % (Manual) 88.0 H Lymphocytes % (Manual) 5.0 L Monocytes % (Manual) Nucleated RBC % Seg Neutrophils # Man 26.0 H Lymphocytes # (Manual) Monocytes # (Manual) APTT POC ABG pH POC ABG pCO2 POC ABG pO2 VBG pH Sodium 146 H Potassium 3.1 L Chloride Carbon Dioxide BUN 25 H Creatinine 0.7 L Glucose 146 H POC Glucose 168 H Lactic Acid Calcium 8.1 L Total Bilirubin AST ALT C-Reactive Protein Albumin Triglycerides Amylase Lipase Urine WBC (Auto)
[2017-12-22 17:54] LABS: Myeloperoxidase Antibody <1.0 AI (<1.0)
[2017-12-23] MEDS: DEXMEDETOMIDINE 200 MCG in NACL 0.9% 48 ML IV SCH ×9 (00:15→22:05)
[2017-12-23] MEDS: DILAUDID IV PRN ×3 (01:23→09:17)
[2017-12-23] MEDS: DUONEB *Not for PRN Use IH SCH ×4 (01:46→20:23)
[2017-12-23] MEDS: ATIVAN IV PRN ×6 (02:32→18:19)
[2017-12-23] MEDS: HumaLOG SUB-Q SCH ×6 (02:44→23:00)
[2017-12-23] MEDS: VANCOMYCIN 1,500 MG in NACL 0.9% 500 ML 500 ML IV SCH ×3 (04:18→22:06)
[2017-12-23] MEDS: MAXIPIME 2 GM in NACL 0.9% 20 ML IV SCH ×3 (06:09→22:09)
[2017-12-23] MEDS: FLAGYL 500 MG/100 ML 500 MG/100 ML BAG IV SCH ×3 (06:09→22:06)
[2017-12-23] MEDS: DILAUDID PO SCH ×4 (06:10→23:45)
--- NOTE | 2017-12-23 08:20 | Progress Note ---
Assessment and Plan Assessment: 1) Severe Sepsis: still high grade fever, tachycardia, worsening leukocytosis. Etiology most likely complicated H influenza bacteremia +/- pneumonia +/- ? intrabdominal source+/- DTs? 2) H influenza bacteremia: likely from pneumonia. TTE neg 3) Complicated Bilateral pneumonia: etiology H influenza - should r/o empyema or abscess -CXR showed kimberlee pneumonia -Sputum 12/20 showed usual resp angelika -HIV neg -JERMAIN and ANCA negative -C3/C4 normal -CRP=7.1 4) Acute respiratory failure: intubated 5) Thrombocytopenia : from sepsis 6) Elevated LFTs: from sepsis, ETOH. Viral hepatitis all negative. 7) DM: uncontrolled Plan: -obtain CT chest, abdomen and pelvis in view of persistent fever to r/o empyema , lung abscess, cholecystitis - pending -obtain new blood culture - in view of new high grade fever -repeat respiratory cultures -continue cefepime, flagyl and vancomycin for now -if imaging is negative, then fever may be from DTs -consider DTs management Discussed nursing staff Thank you for your consultation, will follow up with you. Mariel Corrigan MD Infectious Diseases Specialist [facility] ([facility] M [phone] O [phone] Subjective Date of service: 12/23/17 Principal diagnosis: ARDS Interval history: Remains on the vent PRVC fiO2 40%, p 5, anxious agitated, tmax 102.7. Microbiology: Blood cultures: 12/12 H influenza 1 of 4 bottles 12/15 neg 12/17 ngtd Respiratory cultures: 12/13 usual resp angelika Current Antimicrobials: vanco 12/17 Levaquin 12/13 Clindamycin 12/17 Previous Antimicrobials: Zosyn Objective - Exam Narrative Exam: General appearance: agitated on the vent Eyes: anicteric sclerae, moist conjunctivae; no lid-lag; PERRLA HENT: Atraumatic; oropharynx +ETT +NGT Neck: Trachea midline; supple, no thyromegaly or lymphadenopathy Lungs: kimberlee rhonchi CV:tachy Abdomen: Soft, distended Extremities: legs edema Skin: Normal temperature, turgor and texture; no rash, ulcers or subcutaneous nodules Psych: sedated. Neuro: sedated Lines: No CVL / PICC - Constitutional Vitals: Vital Signs Temp Pulse Resp BP Pulse Ox 100.7 F H 103 H 22 137/75 95 12/23/17 00:00 12/23/17 07:00 12/23/17 07:00 12/23/17 07:00 12/23/17 07:00 Temperature -Last 24 Hours Temperature 100.7 F Temperature 100.6 F Temperature 100.9 F Temperature 102.7 F - Labs CBC & Chem 7: 12/22/17 10:34 12/22/17 10:34 Labs: Abnormal lab results 12/22/17 12/22/17 12/22/17 Range/Units 09:12 10:34 10:34 WBC 29.5 H (4.5-11.0) K/mm3 RBC 3.44 L (3.65-5.03) M/mm3 Hgb 11.2 L (11.8-15.2) gm/dl Hct 34.2 L (35.5-45.6) % MCV 99 H (84-94) fl MCH 33 H (28-32) pg RDW 13.1 L (13.2-15.2) % Plt Count 97 L (140-440) K/mm3 Seg Neuts % (Manual) 88.0 H (40.0-70.0) % Lymphocytes % (Manual) 5.0 L (13.4-35.0) % Seg Neutrophils # Man 26.0 H (1.8-7.7) K/mm3 POC ABG pH (7.35-7.45) POC ABG pCO2 (35-45) POC ABG pO2 (80-105) Sodium 146 H (137-145) mmol/L Potassium 3.1 L (3.6-5.0) mmol/L BUN 25 H (9-20) mg/dL Creatinine 0.7 L (0.8-1.5) mg/dL Glucose 146 H (75-100) mg/dL POC Glucose 168 H (70-105) Calcium 8.1 L (8.4-10.2) mg/dL 12/22/17 12/22/17 12/22/17 Range/Units 14:51 17:21 21:43 WBC (4.5-11.0) K/mm3 RBC (3.65-5.03) M/mm3 Hgb (11.8-15.2) gm/dl Hct (35.5-45.6) % MCV (84-94) fl MCH (28-32) pg RDW (13.2-15.2) % Plt Count (140-440) K/mm3 Seg Neuts % (Manual) (40.0-70.0) % Lymphocytes % (Manual) (13.4-35.0) % Seg Neutrophils # Man (1.8-7.7) K/mm3 POC ABG pH (7.35-7.45) POC ABG pCO2 (35-45) POC ABG pO2 (80-105) Sodium (137-145) mmol/L Potassium (3.6-5.0) mmol/L BUN (9-20) mg/dL Creatinine (0.8-1.5) mg/dL Glucose (75-100) mg/dL POC Glucose 125 H 110 H 153 H (70-105) Calcium (8.4-10.2) mg/dL 12/23/17 12/23/17 Range/Units 04:33 05:28 WBC (4.5-11.0) K/mm3 RBC (3.65-5.03) M/mm3 Hgb (11.8-15.2) gm/dl Hct (35.5-45.6) % MCV (84-94) fl MCH (28-32) pg RDW (13.2-15.2) % Plt Count (140-440) K/mm3 Seg Neuts % (Manual) (40.0-70.0) % Lymphocytes % (Manual) (13.4-35.0) % Seg Neutrophils # Man (1.8-7.7) K/mm3 POC ABG pH 7.573 H (7.35-7.45) POC ABG pCO2 31.0 L (35-45) POC ABG pO2 63 L (80-105) Sodium (137-145) mmol/L Potassium (3.6-5.0) mmol/L BUN (9-20) mg/dL Creatinine (0.8-1.5) mg/dL Glucose (75-100) mg/dL POC Glucose 124 H (70-105) Calcium (8.4-10.2) mg/dL
[2017-12-23] MEDS: VITAMIN B-1 PO SCH (09:14)
[2017-12-23] MEDS: DULCOLAX PR SCH (09:15)
[2017-12-23] MEDS: LOPRESSOR PO SCH ×2 (09:15→22:06)
[2017-12-23] MEDS: LANTUS SUB-Q SCH (09:23)
[2017-12-23 09:47] LABS: Hematocrit 30.2 % (35.5-45.6); Hemoglobin 9.8 gm/dl (11.8-15.2); Mean Corpuscular HGB Conc 32 % (32-34); Mean Corpuscular Hemoglobin 32 pg (28-32); Mean Corpuscular Volume 99 fl (84-94); Platelet Count 101 K/mm3 (140-440); Red Blood Count 3.05 M/mm3 (3.65-5.03); Red Cell Distribution Width 12.9 % (13.2-15.2)
[2017-12-23 09:58] LABS: BUN/Creatinine Ratio 33; Blood Urea Nitrogen 20 mg/dL (9-20); Calcium 7.9 mg/dL (8.4-10.2); Hemolysis Index 3
[2017-12-23] MEDS ORDERED: SENOKOT S PO PRN (10:00)
[2017-12-23] MEDS: SODIUM CHLORIDE FLUSH SYRINGE 10 ML IV SCH ×2 (10:15→22:08)
[2017-12-23] MEDS: PEPCID PO SCH ×2 (10:26→22:06)
--- NOTE | 2017-12-23 10:55 | Progress Note ---
Assessment and Plan 47 y/o male with acute respiratory failure thought secondary to H. Flu now with H. Flu bacteremia, sepsis and persistent fevers. 1. Repeat CXR shows right lower lobe airspace disease. This is new compared to his last film from 12/20. Could be the cause of fever. Will discuss with ID but if bronch is warranted can perform at the bedside to obtain samples if any mucous is present. 2. Agitated on vent. Will add Librium QID and seroquel QHS to help with sleep and agitation. Asked nursing to start to wean Versed first. Keep precedex at current dosing. 3. Reviewed ID note. Patient will likely not be still enough to obtain appropriate imaging. With repeat CXR, this could explain fevers but if not enough will attempt to sedate appropriately to obtain solis scan. Abx therapy to be managed by ID 4. Replace K CCT 31 minutes. Subjective Date of service: 12/23/17 Principal diagnosis: ARDS Interval history: Restless on heavy sedation. Family at bedside. Spoke with and she states that patient has high levels of anxiety outside of hospital. Not on any medication for this. Currently on precedex, dilaudid and Versed 5mg. Per , last drink was a beer 2 weeks ago. Remainder is negative. Objective Vital Signs - 12hr 12/22/17 12/23/17 12/23/17 23:00 00:00 00:05 Temperature 100.7 F H Pulse Rate 78 80 93 H Pulse Rate [ Anterior Bilateral Throughout] Respiratory 20 13 Rate Respiratory Rate [Anterior Bilateral Throughout] Blood Pressure 155/86 153/86 153/86 O2 Sat by Pulse 97 93 97 Oximetry 12/23/17 12/23/17 12/23/17 01:00 01:23 01:46 Temperature Pulse Rate 81 Pulse Rate [ 82 Anterior Bilateral Throughout] Respiratory 17 18 Rate Respiratory 24 Rate [Anterior Bilateral Throughout] Blood Pressure 147/82 O2 Sat by Pulse 98 Oximetry 12/23/17 12/23/17 12/23/17 02:00 02:01 03:01 Temperature Pulse Rate 85 101 H Pulse Rate [ 84 Anterior Bilateral Throughout] Respiratory 22 27 H Rate Respiratory 24 Rate [Anterior Bilateral Throughout] Blood Pressure 141/81 173/91 O2 Sat by Pulse 98 91 Oximetry 12/23/17 12/23/17 12/23/17 04:00 04:09 04:50 Temperature Pulse Rate 89 97 H Pulse Rate [ Anterior Bilateral Throughout] Respiratory 28 H 18 Rate Respiratory Rate [Anterior Bilateral Throughout] Blood Pressure 180/94 180/94 O2 Sat by Pulse 93 96 Oximetry 12/23/17 12/23/17 12/23/17 05:00 06:00 06:10 Temperature Pulse Rate 89 93 H Pulse Rate [ Anterior Bilateral Throughout] Respiratory 28 H 20 28 H Rate Respiratory Rate [Anterior Bilateral Throughout] Blood Pressure 166/95 171/92 O2 Sat by Pulse 93 97 Oximetry 12/23/17 12/23/17 12/23/17 07:00 08:00 08:41 Temperature Pulse Rate 103 H 93 H Pulse Rate [ 94 H 93 H Anterior Bilateral Throughout] Respiratory 22 16 Rate Respiratory 22 11 L Rate [Anterior Bilateral Throughout] Blood Pressure 137/75 161/78 O2 Sat by Pulse 95 94 Oximetry 12/23/17 12/23/17 09:00 09:15 Temperature 100.1 F H Pulse Rate 93 H Pulse Rate [ Anterior Bilateral Throughout] Respiratory Rate Respiratory Rate [Anterior Bilateral Throughout] Blood Pressure 157/91 O2 Sat by Pulse Oximetry Constitutional: other (intubated, sedated) Eyes: non-icteric ENT: oropharynx moist Neck: supple Effort: normal Ascultation: Right: rales, Bilateral: diminished breath sounds, other (coarse BS bilaterally) Cardiovascular: regular rate and rhythm, other (tachycardic) Gastrointestinal: normoactive bowel sounds, soft, non-tender, non-distended, other (obese) Integumentary: normal Extremities: no cyanosis, no edema, pink and warm Neurologic: unable to assess (due to sedation) Psychiatric: other (not able to assess) CBC and BMP: 12/23/17 09:25 12/23/17 09:25 ABG, PT/INR, D-dimer: ABG POC ABG pH 7.573 (7.35-7.45) H 12/23/17 04:33 POC ABG pCO2 31.0 (35-45) L 12/23/17 04:33 POC ABG pO2 63 (80-105) L 12/23/17 04:33 POC ABG HCO3 28.6 12/23/17 04:33 POC ABG Total CO2 30 12/23/17 04:33 POC ABG O2 Sat 95 12/23/17 04:33 PT/INR, D-dimer PT 14.9 Sec. (12.2-14.9) 12/15/17 04:05 INR 1.11 (0.87-1.13) 12/15/17 04:05 Abnormal lab findings: Abnormal Labs 12/12/17 12/12/17 12/12/17 18:57 19:02 19:02 WBC RBC Hgb Hct MCV 96 H MCH 34 H MCHC 35 H RDW Plt Count 46 L Seg Neuts % (Manual) 77.0 H Lymphocytes % (Manual) 13.0 L Monocytes % (Manual) Nucleated RBC % Seg Neutrophils # Man Lymphocytes # (Manual) 0.9 L Monocytes # (Manual) APTT POC ABG pH POC ABG pCO2 POC ABG pO2 VBG pH Sodium Potassium Chloride Carbon Dioxide BUN Creatinine Glucose POC Glucose 321 H Lactic Acid 4.00 H* Calcium Total Bilirubin AST ALT C-Reactive Protein Albumin Triglycerides Amylase Lipase Urine WBC (Auto) 12/12/17 12/12/17 12/12/17 19:02 19:18 20:55 WBC RBC Hgb Hct MCV MCH MCHC RDW Plt Count Seg Neuts % (Manual) Lymphocytes % (Manual) Monocytes % (Manual) Nucleated RBC % Seg Neutrophils # Man Lymphocytes # (Manual) Monocytes # (Manual) APTT POC ABG pH POC ABG pCO2 POC ABG pO2 VBG pH 7.472 H Sodium 124 L Potassium Chloride 80.0 L Carbon Dioxide 20 L BUN Creatinine Glucose 382 H POC Glucose 283 H Lactic Acid Calcium 8.1 L Total Bilirubin 4.60 H AST 93 H ALT 112 H C-Reactive Protein Albumin 2.5 L Triglycerides Amylase Lipase Urine WBC (Auto) 12/12/17 12/13/17 12/13/17 21:41 00:45 01:29 WBC RBC Hgb Hct MCV MCH MCHC RDW Plt Count Seg Neuts % (Manual) Lymphocytes % (Manual) Monocytes % (Manual) Nucleated RBC % Seg Neutrophils # Man Lymphocytes # (Manual) Monocytes # (Manual) APTT POC ABG pH POC ABG pCO2 POC ABG pO2 VBG pH Sodium Potassium Chloride Carbon Dioxide BUN Creatinine Glucose POC Glucose Lactic Acid 4.20 H* 2.70 H* 3.30 H* Calcium Total Bilirubin AST ALT C-Reactive Protein Albumin Triglycerides Amylase Lipase Urine WBC (Auto) 12/13/17 12/13/17 12/13/17 02:19 03:44 05:58 WBC RBC Hgb Hct MCV 97 H MCH 34 H MCHC 35 H RDW Plt Count 41 L Seg Neuts % (Manual) Lymphocytes % (Manual) 8.0 L Monocytes % (Manual) 8.0 H Nucleated RBC % Seg Neutrophils # Man Lymphocytes # (Manual) 0.6 L Monocytes # (Manual) APTT POC ABG pH 7.334 L POC ABG pCO2 POC ABG pO2 43 L VBG pH Sodium Potassium Chloride Carbon Dioxide BUN Creatinine Glucose POC Glucose Lactic Acid 2.60 H* Calcium Total Bilirubin AST ALT C-Reactive Protein Albumin Triglycerides Amylase Lipase Urine WBC (Auto) 12/13/17 12/13/17 12/13/17 05:58 05:58 05:58 WBC RBC Hgb Hct MCV MCH MCHC RDW Plt Count Seg Neuts % (Manual) Lymphocytes % (Manual) Monocytes % (Manual) Nucleated RBC % Seg Neutrophils # Man Lymphocytes # (Manual) Monocytes # (Manual) APTT POC ABG pH POC ABG pCO2 POC ABG pO2 VBG pH Sodium 132 L D Potassium Chloride 90.0 L Carbon Dioxide 20 L BUN Creatinine Glucose 346 H POC Glucose 298 H Lactic Acid 4.50 H* Calcium 8.2 L Total Bilirubin AST ALT C-Reactive Protein Albumin Triglycerides Amylase Lipase Urine WBC (Auto) 12/13/17 12/13/17 12/13/17 06:27 09:42 11:47 WBC RBC Hgb Hct MCV MCH MCHC RDW Plt Count Seg Neuts % (Manual) Lymphocytes % (Manual) Monocytes % (Manual) Nucleated RBC % Seg Neutrophils # Man Lymphocytes # (Manual) Monocytes # (Manual) APTT POC ABG pH 7.267 L 7.298 L POC ABG pCO2 50.4 H 51.3 H POC ABG pO2 47 L 43 L VBG pH Sodium Potassium Chloride Carbon Dioxide BUN Creatinine Glucose POC Glucose 376 H Lactic Acid Calcium Total Bilirubin AST ALT C-Reactive Protein Albumin Triglycerides Amylase Lipase Urine WBC (Auto) 12/13/17 12/13/17 12/13/17 12:03 13:47 13:47 WBC RBC Hgb Hct MCV MCH MCHC RDW Plt Count Seg Neuts % (Manual) Lymphocytes % (Manual) Monocytes % (Manual) Nucleated RBC % Seg Neutrophils # Man Lymphocytes # (Manual) Monocytes # (Manual) APTT POC ABG pH 7.264 L POC ABG pCO2 54.9 H POC ABG pO2 55 L VBG pH Sodium Potassium Chloride Carbon Dioxide BUN Creatinine Glucose POC Glucose Lactic Acid 2.80 H* Calcium Total Bilirubin AST ALT C-Reactive Protein Albumin Triglycerides Amylase 20 L Lipase 9 L Urine WBC (Auto) 12/13/17 12/13/17 12/13/17 15:36 17:39 21:47 WBC RBC Hgb Hct MCV MCH MCHC RDW Plt Count Seg Neuts % (Manual) Lymphocytes % (Manual) Monocytes % (Manual) Nucleated RBC % Seg Neutrophils # Man Lymphocytes # (Manual) Monocytes # (Manual) APTT POC ABG pH 7.229 L 7.225 L POC ABG pCO2 60.9 H 66.3 H POC ABG pO2 42 L 41 L VBG pH Sodium Potassium Chloride Carbon Dioxide BUN Creatinine Glucose POC Glucose 289 H Lactic Acid Calcium Total Bilirubin AST ALT C-Reactive Protein Albumin Triglycerides Amylase Lipase Urine WBC (Auto) 12/13/17 12/14/17 12/14/17 22:19 02:03 05:16 WBC RBC Hgb Hct MCV MCH MCHC RDW Plt Count Seg Neuts % (Manual) Lymphocytes % (Manual) Monocytes % (Manual) Nucleated RBC % Seg Neutrophils # Man Lymphocytes # (Manual) Monocytes # (Manual) APTT POC ABG pH 7.247 L POC ABG pCO2 61.2 H POC ABG pO2 53 L VBG pH Sodium Potassium Chloride Carbon Dioxide BUN Creatinine Glucose POC Glucose 274 H 295 H Lactic Acid Calcium Total Bilirubin AST ALT C-Reactive Protein Albumin Triglycerides Amylase Lipase Urine WBC (Auto) 12/14/17 12/14/17 12/14/17 05:32 12:04 16:22 WBC RBC Hgb Hct MCV MCH MCHC RDW Plt Count Seg Neuts % (Manual) Lymphocytes % (Manual) Monocytes % (Manual) Nucleated RBC % Seg Neutrophils # Man Lymphocytes # (Manual) Monocytes # (Manual) APTT POC ABG pH POC ABG pCO2 POC ABG pO2 VBG pH Sodium Potassium Chloride Carbon Dioxide BUN Creatinine Glucose POC Glucose 230 H 241 H 231 H Lactic Acid Calcium Total Bilirubin AST ALT C-Reactive Protein Albumin Triglycerides Amylase Lipase Urine WBC (Auto) 12/14/17 12/15/17 12/15/17 21:29 02:29 03:25 WBC RBC Hgb Hct MCV MCH MCHC RDW Plt Count Seg Neuts % (Manual) Lymphocytes % (Manual) Monocytes % (Manual) Nucleated RBC % Seg Neutrophils # Man Lymphocytes # (Manual) Monocytes # (Manual) APTT POC ABG pH 7.330 L POC ABG pCO2 55.3 H POC ABG pO2 59 L VBG pH Sodium Potassium Chloride Carbon Dioxide BUN Creatinine Glucose POC Glucose 258 H 246 H Lactic Acid Calcium Total Bilirubin AST ALT C-Reactive Protein Albumin Triglycerides Amylase Lipase Urine WBC (Auto) 12/15/17 12/15/17 12/15/17 04:05 04:05 04:05 WBC 15.0 H RBC 3.40 L Hgb 11.3 L D Hct 33.8 L D MCV 100 H MCH 33 H MCHC RDW Plt Count 48 L Seg Neuts % (Manual) Lymphocytes % (Manual) 3.0 L Monocytes % (Manual) Nucleated RBC % 2.0 H Seg Neutrophils # Man Lymphocytes # (Manual) 0.5 L Monocytes # (Manual) 0.9 H APTT 20.9 L POC ABG pH POC ABG pCO2 POC ABG pO2 VBG pH Sodium Potassium Chloride Carbon Dioxide BUN 27 H Creatinine Glucose 258 H POC Glucose Lactic Acid Calcium 8.1 L Total Bilirubin AST ALT C-Reactive Protein Albumin Triglycerides Amylase Lipase Urine WBC (Auto) 12/15/17 12/15/17 12/15/17 05:32 11:17 14:59 WBC RBC Hgb Hct MCV MCH MCHC RDW Plt Count Seg Neuts % (Manual) Lymphocytes % (Manual) Monocytes % (Manual) Nucleated RBC % Seg Neutrophils # Man Lymphocytes # (Manual) Monocytes # (Manual) APTT POC ABG pH POC ABG pCO2 POC ABG pO2 VBG pH Sodium Potassium Chloride Carbon Dioxide BUN Creatinine Glucose POC Glucose 247 H 268 H 233 H Lactic Acid Calcium Total Bilirubin AST ALT C-Reactive Protein Albumin Triglycerides Amylase Lipase Urine WBC (Auto) 12/15/17 12/15/17 12/15/17 17:00 18:59 21:37 WBC RBC Hgb Hct MCV MCH MCHC RDW Plt Count Seg Neuts % (Manual) Lymphocytes % (Manual) Monocytes % (Manual) Nucleated RBC % Seg Neutrophils # Man Lymphocytes # (Manual) Monocytes # (Manual) APTT POC ABG pH POC ABG pCO2 POC ABG pO2 VBG pH Sodium Potassium Chloride Carbon Dioxide BUN Creatinine Glucose POC Glucose 195 H 208 H Lactic Acid Calcium Total Bilirubin AST ALT C-Reactive Protein Albumin Triglycerides Amylase Lipase Urine WBC (Auto) 38.0 H 12/16/17 12/16/17 12/16/17 03:17 03:33 04:18 WBC 16.4 H RBC 3.50 L Hgb 11.3 L Hct 35.4 L MCV 101 H MCH MCHC RDW Plt Count 54 L Seg Neuts % (Manual) Lymphocytes % (Manual) Monocytes % (Manual) Nucleated RBC % Seg Neutrophils # Man Lymphocytes # (Manual) Monocytes # (Manual) APTT POC ABG pH POC ABG pCO2 47.7 H POC ABG pO2 VBG pH Sodium Potassium Chloride Carbon Dioxide BUN Creatinine Glucose POC Glucose 227 H Lactic Acid Calcium Total Bilirubin AST ALT C-Reactive Protein Albumin Triglycerides Amylase Lipase Urine WBC (Auto) 12/16/17 12/16/17 12/16/17 04:18 05:08 10:01 WBC RBC Hgb Hct MCV MCH MCHC RDW Plt Count Seg Neuts % (Manual) Lymphocytes % (Manual) Monocytes % (Manual) Nucleated RBC % Seg Neutrophils # Man Lymphocytes # (Manual) Monocytes # (Manual) APTT POC ABG pH POC ABG pCO2 POC ABG pO2 VBG pH Sodium 147 H Potassium Chloride 107.4 H Carbon Dioxide BUN 28 H Creatinine Glucose 240 H POC Glucose 227 H 190 H Lactic Acid Calcium 8.3 L Total Bilirubin AST ALT C-Reactive Protein Albumin Triglycerides Amylase Lipase Urine WBC (Auto) 12/16/17 12/16/17 12/16/17 14:15 17:51 21:14 WBC RBC Hgb Hct MCV MCH MCHC RDW Plt Count Seg Neuts % (Manual) Lymphocytes % (Manual) Monocytes % (Manual) Nucleated RBC % Seg Neutrophils # Man Lymphocytes # (Manual) Monocytes # (Manual) APTT POC ABG pH POC ABG pCO2 POC ABG pO2 VBG pH Sodium Potassium Chloride Carbon Dioxide BUN Creatinine Glucose POC Glucose 279 H 272 H 260 H Lactic Acid Calcium Total Bilirubin AST ALT C-Reactive Protein Albumin Triglycerides Amylase Lipase Urine WBC (Auto) 12/17/17 12/17/17 12/17/17 02:41 04:28 04:28 WBC 19.1 H RBC 3.50 L Hgb 11.4 L Hct 35.3 L MCV 101 H MCH 33 H MCHC RDW Plt Count 65 L Seg Neuts % (Manual) Lymphocytes % (Manual) Monocytes % (Manual) Nucleated RBC % Seg Neutrophils # Man Lymphocytes # (Manual) Monocytes # (Manual) APTT POC ABG pH POC ABG pCO2 POC ABG pO2 VBG pH Sodium 153 H Potassium Chloride 111.2 H Carbon Dioxide 31 H BUN 28 H Creatinine Glucose 248 H POC Glucose 300 H Lactic Acid Calcium Total Bilirubin AST ALT C-Reactive Protein Albumin Triglycerides Amylase Lipase Urine WBC (Auto) 12/17/17 12/17/17 12/17/17 05:15 05:38 10:16 WBC RBC Hgb Hct MCV MCH MCHC RDW Plt Count Seg Neuts % (Manual) Lymphocytes % (Manual) Monocytes % (Manual) Nucleated RBC % Seg Neutrophils # Man Lymphocytes # (Manual) Monocytes # (Manual) APTT POC ABG pH POC ABG pCO2 50.3 H POC ABG pO2 120 H VBG pH Sodium Potassium Chloride Carbon Dioxide BUN Creatinine Glucose POC Glucose 231 H 196 H Lactic Acid Calcium Total Bilirubin AST ALT C-Reactive Protein Albumin Triglycerides Amylase Lipase Urine WBC (Auto) 12/17/17 12/17/17 12/17/17 14:22 18:14 21:35 WBC RBC Hgb Hct MCV MCH MCHC RDW Plt Count Seg Neuts % (Manual) Lymphocytes % (Manual) Monocytes % (Manual) Nucleated RBC % Seg Neutrophils # Man Lymphocytes # (Manual) Monocytes # (Manual) APTT POC ABG pH POC ABG pCO2 POC ABG pO2 VBG pH Sodium Potassium Chloride Carbon Dioxide BUN Creatinine Glucose POC Glucose 234 H 215 H 159 H Lactic Acid Calcium Total Bilirubin AST ALT C-Reactive Protein Albumin Triglycerides Amylase Lipase Urine WBC (Auto) 12/18/17 12/18/17 12/18/17 00:53 02:58 06:03 WBC RBC Hgb Hct MCV MCH MCHC RDW Plt Count Seg Neuts % (Manual) Lymphocytes % (Manual) Monocytes % (Manual) Nucleated RBC % Seg Neutrophils # Man Lymphocytes # (Manual) Monocytes # (Manual) APTT POC ABG pH POC ABG pCO2 56.4 H POC ABG pO2 46 L VBG pH Sodium Potassium Chloride Carbon Dioxide BUN Creatinine Glucose POC Glucose 176 H 143 H Lactic Acid Calcium Total Bilirubin AST ALT C-Reactive Protein Albumin Triglycerides Amylase Lipase Urine WBC (Auto) 12/18/17 12/18/17 12/18/17 07:59 09:20 09:20 WBC 27.4 H RBC 3.57 L Hgb 11.4 L Hct MCV 101 H MCH MCHC RDW Plt Count 64 L Seg Neuts % (Manual) Lymphocytes % (Manual) Monocytes % (Manual) Nucleated RBC % Seg Neutrophils # Man Lymphocytes # (Manual) Monocytes # (Manual) APTT POC ABG pH POC ABG pCO2 POC ABG pO2 VBG pH Sodium 152 H Potassium Chloride 107.9 H Carbon Dioxide 34 H BUN 23 H Creatinine 0.7 L Glucose 181 H POC Glucose 197 H Lactic Acid Calcium Total Bilirubin AST ALT C-Reactive Protein Albumin Triglycerides Amylase Lipase Urine WBC (Auto) 12/18/17 12/18/17 12/18/17 10:22 15:03 18:15 WBC RBC Hgb Hct MCV MCH MCHC RDW Plt Count Seg Neuts % (Manual) Lymphocytes % (Manual) Monocytes % (Manual) Nucleated RBC % Seg Neutrophils # Man Lymphocytes # (Manual) Monocytes # (Manual) APTT POC ABG pH POC ABG pCO2 POC ABG pO2 VBG pH Sodium Potassium Chloride Carbon Dioxide BUN Creatinine Glucose POC Glucose 195 H 225 H 238 H Lactic Acid Calcium Total Bilirubin AST ALT C-Reactive Protein Albumin Triglycerides Amylase Lipase Urine WBC (Auto) 12/18/17 12/18/17 12/19/17 18:29 21:53 00:18 WBC RBC Hgb Hct MCV MCH MCHC RDW Plt Count Seg Neuts % (Manual) Lymphocytes % (Manual) Monocytes % (Manual) Nucleated RBC % Seg Neutrophils # Man Lymphocytes # (Manual) Monocytes # (Manual) APTT POC ABG pH 7.476 H POC ABG pCO2 50.4 H POC ABG pO2 158 H VBG pH Sodium Potassium Chloride Carbon Dioxide BUN Creatinine Glucose POC Glucose 231 H 263 H Lactic Acid Calcium Total Bilirubin AST ALT C-Reactive Protein Albumin Triglycerides Amylase Lipase Urine WBC (Auto) 12/19/17 12/19/17 12/19/17 02:09 04:07 04:07 WBC 25.9 H RBC 3.25 L Hgb 10.6 L Hct 32.8 L MCV 101 H MCH 33 H MCHC RDW Plt Count 67 L Seg Neuts % (Manual) Lymphocytes % (Manual) 4.0 L Monocytes % (Manual) Nucleated RBC % Seg Neutrophils # Man 14.8 H Lymphocytes # (Manual) 1.0 L Monocytes # (Manual) APTT POC ABG pH POC ABG pCO2 POC ABG pO2 VBG pH Sodium 148 H Potassium Chloride Carbon Dioxide BUN 31 H Creatinine Glucose 314 H POC Glucose 300 H Lactic Acid Calcium 8.1 L Total Bilirubin AST ALT C-Reactive Protein Albumin Triglycerides Amylase Lipase Urine WBC (Auto) 12/19/17 12/19/17 12/19/17 05:15 05:41 07:57 WBC RBC Hgb Hct MCV MCH MCHC RDW Plt Count Seg Neuts % (Manual) Lymphocytes % (Manual) Monocytes % (Manual) Nucleated RBC % Seg Neutrophils # Man Lymphocytes # (Manual) Monocytes # (Manual) APTT POC ABG pH 7.507 H POC ABG pCO2 POC ABG pO2 VBG pH Sodium Potassium Chloride Carbon Dioxide BUN Creatinine Glucose POC Glucose 331 H 307 H Lactic Acid Calcium Total Bilirubin AST ALT C-Reactive Protein Albumin Triglycerides Amylase Lipase Urine WBC (Auto) 12/19/17 12/19/17 12/19/17 10:21 14:48 17:59 WBC RBC Hgb Hct MCV MCH MCHC RDW Plt Count Seg Neuts % (Manual) Lymphocytes % (Manual) Monocytes % (Manual) Nucleated RBC % Seg Neutrophils # Man Lymphocytes # (Manual) Monocytes # (Manual) APTT POC ABG pH POC ABG pCO2 POC ABG pO2 VBG pH Sodium Potassium Chloride Carbon Dioxide BUN Creatinine Glucose POC Glucose 358 H 327 H 355 H Lactic Acid Calcium Total Bilirubin AST ALT C-Reactive Protein Albumin Triglycerides Amylase Lipase Urine WBC (Auto) 12/19/17 12/20/17 12/20/17 21:38 02:21 03:42 WBC RBC Hgb Hct MCV MCH MCHC RDW Plt Count Seg Neuts % (Manual) Lymphocytes % (Manual) Monocytes % (Manual) Nucleated RBC % Seg Neutrophils # Man Lymphocytes # (Manual) Monocytes # (Manual) APTT POC ABG pH 7.494 H POC ABG pCO2 POC ABG pO2 VBG pH Sodium Potassium Chloride Carbon Dioxide BUN Creatinine Glucose POC Glucose 329 H 354 H Lactic Acid Calcium Total Bilirubin AST ALT C-Reactive Protein Albumin Triglycerides Amylase Lipase Urine WBC (Auto) 12/20/17 12/20/17 12/20/17 04:08 04:08 04:08 WBC 22.7 H RBC 3.26 L Hgb 10.6 L Hct 32.9 L MCV 101 H MCH 33 H MCHC RDW Plt Count 78 L Seg Neuts % (Manual) 80.0 H Lymphocytes % (Manual) 6.0 L Monocytes % (Manual) Nucleated RBC % Seg Neutrophils # Man 18.2 H Lymphocytes # (Manual) Monocytes # (Manual) APTT POC ABG pH POC ABG pCO2 POC ABG pO2 VBG pH Sodium Potassium Chloride Carbon Dioxide 31 H BUN 30 H Creatinine 0.6 L Glucose 365 H POC Glucose Lactic Acid Calcium Total Bilirubin AST ALT C-Reactive Protein Albumin Triglycerides 981 H Amylase Lipase Urine WBC (Auto) 12/20/17 12/20/17 12/20/17 05:15 10:47 13:40 WBC RBC Hgb Hct MCV MCH MCHC RDW Plt Count Seg Neuts % (Manual) Lymphocytes % (Manual) Monocytes % (Manual) Nucleated RBC % Seg Neutrophils # Man Lymphocytes # (Manual) Monocytes # (Manual) APTT POC ABG pH POC ABG pCO2 POC ABG pO2 VBG pH Sodium Potassium Chloride Carbon Dioxide BUN Creatinine Glucose POC Glucose 342 H 330 H Lactic Acid Calcium Total Bilirubin AST ALT C-Reactive Protein 7.10 H Albumin Triglycerides Amylase Lipase Urine WBC (Auto) 12/20/17 12/20/17 12/20/17 13:40 14:52 16:55 WBC RBC Hgb Hct MCV MCH MCHC RDW Plt Count Seg Neuts % (Manual) Lymphocytes % (Manual) Monocytes % (Manual) Nucleated RBC % Seg Neutrophils # Man Lymphocytes # (Manual) Monocytes # (Manual) APTT POC ABG pH 7.484 H POC ABG pCO2 POC ABG pO2 VBG pH Sodium Potassium Chloride Carbon Dioxide BUN Creatinine Glucose POC Glucose 293 H Lactic Acid Calcium Total Bilirubin AST ALT C-Reactive Protein Albumin Triglycerides 1042 H Amylase Lipase Urine WBC (Auto) 12/20/17 12/20/17 12/21/17 18:00 21:58 02:05 WBC RBC Hgb Hct MCV MCH MCHC RDW Plt Count Seg Neuts % (Manual) Lymphocytes % (Manual) Monocytes % (Manual) Nucleated RBC % Seg Neutrophils # Man Lymphocytes # (Manual) Monocytes # (Manual) APTT POC ABG pH POC ABG pCO2 POC ABG pO2 VBG pH Sodium Potassium Chloride Carbon Dioxide BUN Creatinine Glucose POC Glucose 268 H 272 H 229 H Lactic Acid Calcium Total Bilirubin AST ALT C-Reactive Protein Albumin Triglycerides Amylase Lipase Urine WBC (Auto) 12/21/17 12/21/17 12/21/17 03:59 06:23 08:57 WBC RBC Hgb Hct MCV MCH MCHC RDW Plt Count Seg Neuts % (Manual) Lymphocytes % (Manual) Monocytes % (Manual) Nucleated RBC % Seg Neutrophils # Man Lymphocytes # (Manual) Monocytes # (Manual) APTT POC ABG pH 7.474 H POC ABG pCO2 POC ABG pO2 71 L VBG pH Sodium Potassium Chloride Carbon Dioxide BUN Creatinine Glucose POC Glucose 182 H 217 H Lactic Acid Calcium Total Bilirubin AST ALT C-Reactive Protein Albumin Triglycerides Amylase Lipase Urine WBC (Auto) 12/21/17 12/21/17 12/21/17 13:59 18:00 21:20 WBC RBC Hgb Hct MCV MCH MCHC RDW Plt Count Seg Neuts % (Manual) Lymphocytes % (Manual) Monocytes % (Manual) Nucleated RBC % Seg Neutrophils # Man Lymphocytes # (Manual) Monocytes # (Manual) APTT POC ABG pH POC ABG pCO2 POC ABG pO2 VBG pH Sodium Potassium Chloride Carbon Dioxide BUN Creatinine Glucose POC Glucose 185 H 176 H 187 H Lactic Acid Calcium Total Bilirubin AST ALT C-Reactive Protein Albumin Triglycerides Amylase Lipase Urine WBC (Auto) 12/21/17 12/22/17 12/22/17 23:48 04:39 05:30 WBC RBC Hgb Hct MCV MCH MCHC RDW Plt Count Seg Neuts % (Manual) Lymphocytes % (Manual) Monocytes % (Manual) Nucleated RBC % Seg Neutrophils # Man Lymphocytes # (Manual) Monocytes # (Manual) APTT POC ABG pH 7.528 H POC ABG pCO2 POC ABG pO2 63 L VBG pH Sodium Potassium Chloride Carbon Dioxide BUN Creatinine Glucose POC Glucose 126 H 117 H Lactic Acid Calcium Total Bilirubin AST ALT C-Reactive Protein Albumin Triglycerides Amylase Lipase Urine WBC (Auto) 12/22/17 12/22/17 12/22/17 09:12 10:34 10:34 WBC 29.5 H RBC 3.44 L Hgb 11.2 L Hct 34.2 L MCV 99 H MCH 33 H MCHC RDW 13.1 L Plt Count 97 L Seg Neuts % (Manual) 88.0 H Lymphocytes % (Manual) 5.0 L Monocytes % (Manual) Nucleated RBC % Seg Neutrophils # Man 26.0 H Lymphocytes # (Manual) Monocytes # (Manual) APTT POC ABG pH POC ABG pCO2 POC ABG pO2 VBG pH Sodium 146 H Potassium 3.1 L Chloride Carbon Dioxide BUN 25 H Creatinine 0.7 L Glucose 146 H POC Glucose 168 H Lactic Acid Calcium 8.1 L Total Bilirubin AST ALT C-Reactive Protein Albumin Triglycerides Amylase Lipase Urine WBC (Auto) 12/22/17 12/22/17 12/22/17 14:51 17:21 21:43 WBC RBC Hgb Hct MCV MCH MCHC RDW Plt Count Seg Neuts % (Manual) Lymphocytes % (Manual) Monocytes % (Manual) Nucleated RBC % Seg Neutrophils # Man Lymphocytes # (Manual) Monocytes # (Manual) APTT POC ABG pH POC ABG pCO2 POC ABG pO2 VBG pH Sodium Potassium Chloride Carbon Dioxide BUN Creatinine Glucose POC Glucose 125 H 110 H 153 H Lactic Acid Calcium Total Bilirubin AST ALT C-Reactive Protein Albumin Triglycerides Amylase Lipase Urine WBC (Auto) 12/23/17 12/23/17 12/23/17 04:33 05:28 09:25 WBC 31.4 H RBC 3.05 L Hgb 9.8 L Hct 30.2 L MCV 99 H MCH MCHC RDW 12.9 L Plt Count 101 L Seg Neuts % (Manual) Lymphocytes % (Manual) Monocytes % (Manual) Nucleated RBC % Seg Neutrophils # Man Lymphocytes # (Manual) Monocytes # (Manual) APTT POC ABG pH 7.573 H POC ABG pCO2 31.0 L POC ABG pO2 63 L VBG pH Sodium Potassium Chloride Carbon Dioxide BUN Creatinine Glucose POC Glucose 124 H Lactic Acid Calcium Total Bilirubin AST ALT C-Reactive Protein Albumin Triglycerides Amylase Lipase Urine WBC (Auto) 12/23/17 12/23/17 09:25 10:08 WBC RBC Hgb Hct MCV MCH MCHC RDW Plt Count Seg Neuts % (Manual) Lymphocytes % (Manual) Monocytes % (Manual) Nucleated RBC % Seg Neutrophils # Man Lymphocytes # (Manual) Monocytes # (Manual) APTT POC ABG pH POC ABG pCO2 POC ABG pO2 VBG pH Sodium Potassium 3.1 L Chloride Carbon Dioxide BUN Creatinine 0.6 L Glucose 169 H POC Glucose 171 H Lactic Acid Calcium 7.9 L Total Bilirubin AST ALT C-Reactive Protein Albumin Triglycerides Amylase Lipase Urine WBC (Auto)
--- NOTE | 2017-12-23 11:30 | XRay Report ---
AP CHEST History: Hypoxemic. Findings: The endotracheal tube, nasogastric tube and right venous catheter are unchanged. The left lung is clear. Moderate airspace opacity has developed throughout the lateral right lung which is concerning for infiltrate. Small right pleural effusion could be present. Heart size is normal. Impression: New right lung infiltrate since 12/20/17. Please correlate for pneumonia.
[2017-12-23] MEDS ORDERED: POTASSIUM CHLORIDE PO ONE (12:00)
[2017-12-23] MEDS: LIBRIUM PO SCH ×3 (12:11→22:42)
[2017-12-23 12:19] LABS: Basophils % (Manual) 0 % (0.0-1.8); Eosinophils % (Manual) 0 % (0.0-4.3); Monocytes % (Manual) 0 % (0.0-7.3); Platelet Estimate Consistent w Auto; RBC Morphology Normal; Total Cells Counted 100
[2017-12-23] MEDS: TYLENOL PO PRN (12:33)
[2017-12-23] MEDS: MIDAZOLAM 100 MG in NACL 0.9% 80 ML IV SCH (13:03)
[2017-12-23] MEDS: SODIUM CHLORIDE FLUSH SYRINGE 10 ML IV PRN (14:25)
--- NOTE | 2017-12-23 14:28 | Progress Note ---
Assessment and Plan Acute hypoxic respiratory failure - suspected due to ARDS/aspiration pneumonia: on iv cefepime/flagyl/vancomycin Suspected ARDS: - Pulmonology is following, on vent - CXR showing improvement Sepsis with Aspiration pneumonia ?, poa: - on IV antibiotics, repeat blood cx negative - consulted ID, appreciate recommendation Alcohol abuse: sedated, cont iv thiamine Hypotension resolved with ivfs and iv steroids Thrombocytopenia, - severe most likely due to sepsis: hold heparin Hypernatremia - cont free water with TF, placed on hypotonic iv fluid hypokalemia, will replace DM type 2- cont long acting and SSI, increased lentus to 26 unit daily DVT prophylaxis: scd only, due to thrombocytopenia Brief History: Patient is a 47 yo man with a history of tobacco dependency, alcohol abuse, dm type 2, hypertension and asthma who presented to [facility] ED with SOB and found to be severely hypoxic, failed bipap and was intubated. There is report of n/v during and after intubation. Hospitalist Physical GEN: Ill-appearing HEENT: NCAT, pupils react, ET tube, NG tube in place NECK: supple, CVS/HEART:regular tachy NORMAL S1S2, pulses present bilaterally CHEST/LUNGS: Symmetrical chest expansion, good air entry bilaterally GI/Abdomen: soft, distended, good bowel sounds, no guarding or rebound /Bladder: condom cath in place EXT/Skin: Dependent edema MSK: sedated Neuro: sedated Psych: sedated Subjective Date of service: 12/23/17 Principal diagnosis: ARDS Interval history: Pt seen and examined Remained intubated and sedated Tolerating tube feeding at bedside cont to spike low grade temp Objective - Constitutional Vitals: Vital Signs - 12hr 12/23/17 12/23/17 12/23/17 03:01 04:00 04:09 Temperature Pulse Rate 101 H 89 97 H Pulse Rate [ Anterior Bilateral Throughout] Respiratory 27 H 28 H Rate Respiratory Rate [Anterior Bilateral Throughout] Blood Pressure 173/91 180/94 180/94 O2 Sat by Pulse 91 93 96 Oximetry 12/23/17 12/23/17 12/23/17 04:50 05:00 06:00 Temperature Pulse Rate 89 93 H Pulse Rate [ Anterior Bilateral Throughout] Respiratory 18 28 H 20 Rate Respiratory Rate [Anterior Bilateral Throughout] Blood Pressure 166/95 171/92 O2 Sat by Pulse 93 97 Oximetry 0312/23/17 12/23/17 06:10 07:00 08:00 Temperature Pulse Rate 103 H 93 H Pulse Rate [ 94 H Anterior Bilateral Throughout] Respiratory 28 H 22 16 Rate Respiratory 22 Rate [Anterior Bilateral Throughout] Blood Pressure 137/75 161/78 O2 Sat by Pulse 95 94 Oximetry 12/23/17 12/23/17 12/23/17 08:41 09:00 09:15 Temperature 100.1 F H Pulse Rate 99 H 93 H Pulse Rate [ 93 H Anterior Bilateral Throughout] Respiratory 20 Rate Respiratory 11 L Rate [Anterior Bilateral Throughout] Blood Pressure 164/88 157/91 O2 Sat by Pulse 97 Oximetry 12/23/17 12/23/17 12/23/17 10:00 11:00 12:00 Temperature Pulse Rate 91 H 111 H 116 H Pulse Rate [ Anterior Bilateral Throughout] Respiratory 28 H 26 H Rate Respiratory Rate [Anterior Bilateral Throughout] Blood Pressure 155/77 171/99 176/111 O2 Sat by Pulse 96 94 97 Oximetry 12/23/17 12/23/17 13:07 13:09 Temperature 102.1 F H 101 F H Pulse Rate Pulse Rate [ Anterior Bilateral Throughout] Respiratory Rate Respiratory Rate [Anterior Bilateral Throughout] Blood Pressure O2 Sat by Pulse Oximetry - Labs CBC & Chem 7: 12/23/17 09:25 12/23/17 09:25 Labs: Abnormal lab results 12/22/17 12/22/17 12/22/17 Range/Units 14:51 17:21 21:43 WBC (4.5-11.0) K/mm3 RBC (3.65-5.03) M/mm3 Hgb (11.8-15.2) gm/dl Hct (35.5-45.6) % MCV (84-94) fl RDW (13.2-15.2) % Plt Count (140-440) K/mm3 Seg Neuts % (Manual) (40.0-70.0) % Lymphocytes % (Manual) (13.4-35.0) % Seg Neutrophils # Man (1.8-7.7) K/mm3 Lymphocytes # (Manual) (1.2-5.4) K/mm3 POC ABG pH (7.35-7.45) POC ABG pCO2 (35-45) POC ABG pO2 (80-105) Potassium (3.6-5.0) mmol/L Creatinine (0.8-1.5) mg/dL Glucose (75-100) mg/dL POC Glucose 125 H 110 H 153 H (70-105) Calcium (8.4-10.2) mg/dL 12/23/17 12/23/17 12/23/17 Range/Units 04:33 05:28 09:25 WBC 31.4 H (4.5-11.0) K/mm3 RBC 3.05 L (3.65-5.03) M/mm3 Hgb 9.8 L (11.8-15.2) gm/dl Hct 30.2 L (35.5-45.6) % MCV 99 H (84-94) fl RDW 12.9 L (13.2-15.2) % Plt Count 101 L (140-440) K/mm3 Seg Neuts % (Manual) 99.0 H (40.0-70.0) % Lymphocytes % (Manual) 0 L (13.4-35.0) % Seg Neutrophils # Man 31.1 H (1.8-7.7) K/mm3 Lymphocytes # (Manual) 0.0 L (1.2-5.4) K/mm3 POC ABG pH 7.573 H (7.35-7.45) POC ABG pCO2 31.0 L (35-45) POC ABG pO2 63 L (80-105) Potassium (3.6-5.0) mmol/L Creatinine (0.8-1.5) mg/dL Glucose (75-100) mg/dL POC Glucose 124 H (70-105) Calcium (8.4-10.2) mg/dL 12/23/17 12/23/17 12/23/17 Range/Units 09:25 10:08 14:20 WBC (4.5-11.0) K/mm3 RBC (3.65-5.03) M/mm3 Hgb (11.8-15.2) gm/dl Hct (35.5-45.6) % MCV (84-94) fl RDW (13.2-15.2) % Plt Count (140-440) K/mm3 Seg Neuts % (Manual) (40.0-70.0) % Lymphocytes % (Manual) (13.4-35.0) % Seg Neutrophils # Man (1.8-7.7) K/mm3 Lymphocytes # (Manual) (1.2-5.4) K/mm3 POC ABG pH (7.35-7.45) POC ABG pCO2 (35-45) POC ABG pO2 (80-105) Potassium 3.1 L (3.6-5.0) mmol/L Creatinine 0.6 L (0.8-1.5) mg/dL Glucose 169 H (75-100) mg/dL POC Glucose 171 H 211 H (70-105) Calcium 7.9 L (8.4-10.2) mg/dL
[2017-12-24] MEDS: DILAUDID IV PRN ×2 (00:59→02:45)
[2017-12-24] MEDS: APRESOLINE IV PRN ×2 (01:04→03:00)
[2017-12-24] MEDS: DEXMEDETOMIDINE 200 MCG in NACL 0.9% 48 ML IV SCH ×5 (02:00→23:27)
[2017-12-24] MEDS: HumaLOG SUB-Q SCH ×6 (03:00→22:37)
[2017-12-24] MEDS: ATIVAN IV PRN ×4 (03:01→16:37)
[2017-12-24] MEDS: TYLENOL PO PRN (03:15)
[2017-12-24] MEDS: DUONEB *Not for PRN Use IH SCH ×4 (03:21→19:56)
[2017-12-24] MEDS: VANCOMYCIN 1,500 MG in NACL 0.9% 500 ML 500 ML IV SCH (04:44)
[2017-12-24] MEDS: MAXIPIME 2 GM in NACL 0.9% 20 ML IV SCH ×3 (05:06→22:02)
[2017-12-24] MEDS: LIBRIUM PO SCH ×5 (05:07→22:37)
[2017-12-24] MEDS: DILAUDID PO SCH ×4 (05:07→23:41)
[2017-12-24] MEDS: FLAGYL 500 MG/100 ML 500 MG/100 ML BAG IV SCH ×3 (05:07→21:53)
--- NOTE | 2017-12-24 08:11 | Progress Note ---
Assessment and Plan Assessment: 1) Severe Sepsis: still high grade fever, tachycardia, worsening leukocytosis. Etiology most likely complicated H influenza bacteremia +/- pneumonia +/- ? intrabdominal source+/- DTs?. Not better after 7 days of broad spectrum abx 2) H influenza bacteremia: likely from pneumonia. TTE neg 3) Complicated Bilateral pneumonia: etiology H influenza - should r/o empyema or abscess -CXR showed kimberlee pneumonia -Sputum 12/20 showed usual resp angelika -HIV neg -JERMAIN and ANCA negative -C3/C4 normal -CRP=7.1 -Strep pneumoniae not detected -Legionella not detected -tracheal aspirate - usual resp angelika 4) Acute respiratory failure: intubated 5) Thrombocytopenia : from sepsis, better. 6) Elevated LFTs: from sepsis, ETOH. Viral hepatitis all negative. 7) DM: uncontrolled Plan: -obtain CT chest, abdomen and pelvis in view of persistent fever to r/o empyema , lung abscess, cholecystitis - pending (not done yesterday due to agitation) -abdominal US to eval GB -LE US r/o DVT -f/u repeat blood culture -repeat respiratory cultures -continue cefepime, flagyl and vancomycin for now -if imaging is negative, then fever may be from DTs -consider DTs management Thank you for your consultation, will follow up with you. Mariel Corrigan MD Infectious Diseases Specialist [facility] ([facility] M [phone] O [phone] Subjective Date of service: 12/24/17 Principal diagnosis: ARDS Interval history: Remains on the vent PRVC fiO2 35%, p10, anxious agitated, tmax 102.4. Microbiology: Blood cultures: 12/12 H influenza 1 of 4 bottles 12/15 neg 12/17 neg 12/23 ngtd Respiratory cultures: 12/13 - usual resp angelika 12/20 tracheal asp - usual resp angelika Current Antimicrobials: vanco 12/17 cefepime 12/20 flagyl 12/20 Previous Antimicrobials: Zosyn Levaquin 12/13 Clindamycin 12/17 Objective - Exam Narrative Exam: General appearance: agitated on the vent Eyes: anicteric sclerae, moist conjunctivae; no lid-lag; PERRLA HENT: Atraumatic; oropharynx +ETT +NGT Neck: Trachea midline; supple, no thyromegaly or lymphadenopathy Lungs: kimberlee rhonchi CV:tachy Abdomen: Soft, distended tense Extremities: legs edema Skin: Normal temperature, turgor and texture; no rash, ulcers or subcutaneous nodules Psych: sedated. Neuro: sedated Lines: No CVL / PICC - Constitutional Vitals: Vital Signs Temp Pulse Resp BP Pulse Ox 102.4 F H 85 23 143/84 97 12/24/17 03:53 12/24/17 06:30 12/24/17 06:30 12/24/17 06:30 12/24/17 06:30 Temperature -Last 24 Hours Temperature 102.4 F Temperature 98.8 F Temperature 98.5 F Temperature 101 F Temperature 102.1 F Temperature 100.1 F - Labs CBC & Chem 7: 12/23/17 09:25 12/23/17 09:25 Labs: Abnormal lab results 12/23/17 12/23/17 12/23/17 Range/Units 09:25 09:25 10:08 WBC 31.4 H (4.5-11.0) K/mm3 RBC 3.05 L (3.65-5.03) M/mm3 Hgb 9.8 L (11.8-15.2) gm/dl Hct 30.2 L (35.5-45.6) % MCV 99 H (84-94) fl RDW 12.9 L (13.2-15.2) % Plt Count 101 L (140-440) K/mm3 Seg Neuts % (Manual) 97 H (40.0-70.0) % Lymphocytes % (Manual) 2 L (13.4-35.0) % Seg Neutrophils # Man 31.1 H (1.8-7.7) K/mm3 Lymphocytes # (Manual) 0.5 L (1.2-5.4) K/mm3 Potassium 3.1 L (3.6-5.0) mmol/L Creatinine 0.6 L (0.8-1.5) mg/dL Glucose 169 H (75-100) mg/dL POC Glucose 171 H (70-105) Calcium 7.9 L (8.4-10.2) mg/dL 12/23/17 12/23/17 12/23/17 Range/Units 14:20 18:59 21:49 WBC (4.5-11.0) K/mm3 RBC (3.65-5.03) M/mm3 Hgb (11.8-15.2) gm/dl Hct (35.5-45.6) % MCV (84-94) fl RDW (13.2-15.2) % Plt Count (140-440) K/mm3 Seg Neuts % (Manual) (40.0-70.0) % Lymphocytes % (Manual) (13.4-35.0) % Seg Neutrophils # Man (1.8-7.7) K/mm3 Lymphocytes # (Manual) (1.2-5.4) K/mm3 Potassium (3.6-5.0) mmol/L Creatinine (0.8-1.5) mg/dL Glucose (75-100) mg/dL POC Glucose 211 H 175 H 146 H (70-105) Calcium (8.4-10.2) mg/dL 12/24/17 12/24/17 Range/Units 01:47 05:40 WBC (4.5-11.0) K/mm3 RBC (3.65-5.03) M/mm3 Hgb (11.8-15.2) gm/dl Hct (35.5-45.6) % MCV (84-94) fl RDW (13.2-15.2) % Plt Count (140-440) K/mm3 Seg Neuts % (Manual) (40.0-70.0) % Lymphocytes % (Manual) (13.4-35.0) % Seg Neutrophils # Man (1.8-7.7) K/mm3 Lymphocytes # (Manual) (1.2-5.4) K/mm3 Potassium (3.6-5.0) mmol/L Creatinine (0.8-1.5) mg/dL Glucose (75-100) mg/dL POC Glucose 143 H 118 H (70-105) Calcium (8.4-10.2) mg/dL
[2017-12-24] MEDS: ZOFRAN IV PRN (11:00)
[2017-12-24] MEDS: POTASSIUM CHLORIDE PO SCH (11:13)
[2017-12-24] MEDS: LOPRESSOR PO SCH ×2 (11:14→21:53)
[2017-12-24] MEDS: PEPCID PO SCH ×2 (11:14→21:53)
[2017-12-24] MEDS: VITAMIN B-1 PO SCH (11:18)
[2017-12-24] MEDS: SODIUM CHLORIDE FLUSH SYRINGE 10 ML IV PRN (11:18)
--- NOTE | 2017-12-24 12:15 | Progress Note ---
Assessment and Plan Assessment and plan: Acute hypoxic respiratory failure - suspected due to ARDS/aspiration pneumonia: on iv cefepime/flagyl/vancomycin Suspected ARDS: - Pulmonology is following, on vent - CXR showing improvement Sepsis with Aspiration pneumonia ?, poa: - on IV antibiotics, repeat blood cx negative - consulted ID, appreciate recommendation Alcohol abuse: sedated, cont iv thiamine Hypotension resolved with ivfs and iv steroids Thrombocytopenia, - severe most likely due to sepsis: hold heparin Hypernatremia - cont free water with TF, placed on hypotonic iv fluid hypokalemia, will replace DM type 2- cont long acting and SSI, increased lentus to 26 unit daily DVT prophylaxis: scd only, due to thrombocytopenia History Interval history: Patient is a 47 yo man with a history of tobacco dependency, alcohol abuse, dm type 2, hypertension and asthma who presented to [facility] ED with SOB and found to be severely hypoxic, failed bipap and was intubated. There is report of n/v during and after intubation. No overnight events reported by the nursing staff Patient seen and examined medical records reviewed Remains intubated on ventilatory support Vital signs reviewed Hospitalist Physical - Constitutional Vitals: Temp Pulse Resp BP Pulse Ox 102.4 F H 101 H 26 H 151/88 96 12/24/17 03:53 12/24/17 11:14 12/24/17 09:00 12/24/17 11:14 12/24/17 09:00 General appearance: Present: no acute distress, other (intubated on vent) - EENT Eyes: Present: PERRL, EOM intact - Neck Neck: Present: supple - Respiratory Respiratory effort: normal Respiratory: bilateral: diminished, rhonchi, negative: rales, wheezing - Cardiovascular Rhythm: regular Heart Sounds: Present: S1 & S2 - Extremities Extremities: no ischemia, No edema - Abdominal General gastrointestinal: soft, non-tender, non-distended - Integumentary Integumentary: Present: clear, warm - Psychiatric Psychiatric: other (noncommunicative) - Neurologic Neurologic: other (intubated on vent) Results - Labs CBC & Chem 7: 12/23/17 09:25 12/23/17 09:25 Labs: Laboratory Last Values WBC 31.4 K/mm3 (4.5-11.0) H 12/23/17 09:25 RBC 3.05 M/mm3 (3.65-5.03) L 12/23/17 09:25 Hgb 9.8 gm/dl (11.8-15.2) L 12/23/17 09:25 Hct 30.2 % (35.5-45.6) L 12/23/17 09:25 MCV 99 fl (84-94) H 12/23/17 09:25 MCH 32 pg (28-32) 12/23/17 09:25 MCHC 32 % (32-34) 12/23/17 09:25 RDW 12.9 % (13.2-15.2) L 12/23/17 09:25 Plt Count 101 K/mm3 (140-440) L 12/23/17 09:25 [place] % (Auto) Spice Mixer 12/12/17 19:02 Add Manual Diff Complete 12/23/17 09:25 Total Counted 100 12/23/17 09:25 Seg Neutrophils % Spice Mixer 12/23/17 09:25 Seg Neuts % (Manual) 97 % (40.0-70.0) H 12/23/17 09:25 Band Neutrophils % 0 % 12/23/17 09:25 Lymphocytes % (Manual) 2 % (13.4-35.0) L 12/23/17 09:25 Reactive Lymphs % (Man) 0 % 12/23/17 09:25 Monocytes % (Manual) 0 % (0.0-7.3) 12/23/17 09:25 Eosinophils % (Manual) 0 % (0.0-4.3) 12/23/17 09:25 Basophils % (Manual) 0 % (0.0-1.8) 12/23/17 09:25 Metamyelocytes % 0 % 12/23/17 09:25 Myelocytes % 0 % 12/23/17 09:25 Promyelocytes % 0 % 12/23/17 09:25 Blast Cells % 0 % 12/23/17 09:25 Nucleated RBC % Not Reportable 12/23/17 09:25 Seg Neutrophils # Man 31.1 K/mm3 (1.8-7.7) H 12/23/17 09:25 Band Neutrophils # 0.0 K/mm3 12/23/17 09:25 Lymphocytes # (Manual) 0.5 K/mm3 (1.2-5.4) L 12/23/17 09:25 Abs React Lymphs (Man) 0.0 K/mm3 12/23/17 09:25 Monocytes # (Manual) 0.0 K/mm3 (0.0-0.8) 12/23/17 09:25 Eosinophils # (Manual) 0.0 K/mm3 (0.0-0.4) 12/23/17 09:25 Basophils # (Manual) 0.0 K/mm3 (0.0-0.1) 12/23/17 09:25 Metamyelocytes # 0.0 K/mm3 12/23/17 09:25 Myelocytes # 0.0 K/mm3 12/23/17 09:25 Promyelocytes # 0.0 K/mm3 12/23/17 09:25 Blast Cells # 0.0 K/mm3 12/23/17 09:25 Pathologist Review 12/23/17 09:25 WBC Morphology Not Reportable 12/23/17 09:25 Hypersegmented Neuts Not Reportable 12/23/17 09:25 Hyposegmented Neuts Not Reportable 12/23/17 09:25 Hypogranular Neuts Not Reportable 12/23/17 09:25 Smudge Cells Not Reportable 12/23/17 09:25 Toxic Granulation Not Reportable 12/23/17 09:25 Toxic Vacuolation Not Reportable 12/23/17 09:25 Dohle Bodies Not Reportable 12/23/17 09:25 Pelger-Huet Anomaly Not Reportable 12/23/17 09:25 Mary Rods Not Reportable 12/23/17 09:25 Platelet Estimate Consistent w auto 12/23/17 09:25 Clumped Platelets Not Reportable 12/23/17 09:25 Plt Clumps, EDTA Not Reportable 12/23/17 09:25 Large Platelets Not Reportable 12/23/17 09:25 Giant Platelets Not Reportable 12/23/17 09:25 Platelet Satelliting Not Reportable 12/23/17 09:25 Plt Morphology Comment Not Reportable 12/23/17 09:25 RBC Morphology Normal 12/23/17 09:25 Dimorphic RBCs Not Reportable 12/23/17 09:25 Polychromasia Not Reportable 12/23/17 09:25 Hypochromasia Not Reportable 12/23/17 09:25 Poikilocytosis Not Reportable 12/23/17 09:25 Anisocytosis Not Reportable 12/23/17 09:25 Microcytosis Not Reportable 12/23/17 09:25 Macrocytosis Not Reportable 12/23/17 09:25 Spherocytes Not Reportable 12/23/17 09:25 Pappenheimer Bodies Not Reportable 12/23/17 09:25 Sickle Cells Not Reportable 12/23/17 09:25 Target Cells Not Reportable 12/23/17 09:25 Tear Drop Cells Not Reportable 12/23/17 09:25 Ovalocytes Not Reportable 12/23/17 09:25 Stomatocytes Few 12/20/17 04:08 Helmet Cells Not Reportable 12/23/17 09:25 Arceo-[place]ase[place] Bodies Not Reportable 12/23/17 09:25 [place] Rings Not Reportable 12/23/17 09:25 Chidi Cells Not Reportable 12/23/17 09:25 Bite Cells Not Reportable 12/23/17 09:25 Crenated Cell Not Reportable 12/23/17 09:25 Elliptocytes Not Reportable 12/23/17 09:25 Acanthocytes (Spur) Not Reportable 12/23/17 09:25 Rouleaux Not Reportable 12/23/17 09:25 Hemoglobin C Crystals Not Reportable 12/23/17 09:25 Schistocytes Not Reportable 12/23/17 09:25 Malaria parasites Not Reportable 12/23/17 09:25 Vipul Bodies Not Reportable 12/23/17 09:25 Hem Pathologist Commnt Sent to pathology 12/23/17 09:25 PT 14.9 Sec. (12.2-14.9) 12/15/17 04:05 INR 1.11 (0.87-1.13) 12/15/17 04:05 APTT 20.9 Sec. (24.2-36.6) L 12/15/17 04:05 POC ABG pH 7.573 (7.35-7.45) H 12/23/17 04:33 POC ABG pCO2 31.0 (35-45) L 12/23/17 04:33 POC ABG pO2 63 (80-105) L 12/23/17 04:33 POC ABG HCO3 28.6 12/23/17 04:33 POC ABG Total CO2 30 12/23/17 04:33 POC ABG O2 Sat 95 12/23/17 04:33 POC ABG Base Excess 7 12/23/17 04:33 VBG pH 7.472 (7.320-7.420) H 12/12/17 19:18 FiO2 35 % 12/23/17 04:33 Sodium 138 mmol/L (137-145) D 12/23/17 09:25 Potassium 3.1 mmol/L (3.6-5.0) L 12/23/17 09:25 Chloride 99.3 mmol/L (98-107) 12/23/17 09:25 Carbon Dioxide 28 mmol/L (22-30) 12/23/17 09:25 Anion Gap 14 mmol/L 12/23/17 09:25 BUN 20 mg/dL (9-20) 12/23/17 09:25 Creatinine 0.6 mg/dL (0.8-1.5) L 12/23/17 09:25 Estimated GFR > 60 ml/min 12/23/17 09:25 BUN/Creatinine Ratio 33 % 12/23/17 09:25 Glucose 169 mg/dL (75-100) H 12/23/17 09:25 POC Glucose 118 (70-105) H 12/24/17 05:40 Lactic Acid 2.00 mmol/L (0.7-2.0) 12/13/17 19:38 Calcium 7.9 mg/dL (8.4-10.2) L 12/23/17 09:25 Total Bilirubin 4.60 mg/dL (0.1-1.2) H 12/12/17 19:02 AST 93 units/L (5-40) H 12/12/17 19:02 ALT 112 units/L (7-56) H 12/12/17 19:02 Alkaline Phosphatase 80 units/L (35-129) 12/12/17 19:02 C-Reactive Protein 7.10 mg/dL (0.00-1.30) H 12/20/17 13:40 NT-Pro-B Natriuret Pep 409.9 pg/mL (0-450) 12/12/17 19:02 Total Protein 6.5 g/dL (6.3-8.2) 12/12/17 19:02 Albumin 2.5 g/dL (3.9-5) L 12/12/17 19:02 Albumin/Globulin Ratio 0.6 % 12/12/17 19:02 Triglycerides 1042 mg/dL (2-149) H 12/20/17 13:40 Amylase 20 units/L (27-131) L 12/13/17 13:47 Lipase 9 units/L (13-60) L 12/13/17 13:47 Urine Color Neeta (Yellow) 12/15/17 17:00 Urine Turbidity Hazy (Clear) 12/15/17 17:00 Urine pH 6.0 (5.0-7.0) 12/15/17 17:00 Ur Specific [place] 1.027 (1.003-1.030) 12/15/17 17:00 Urine Protein 30 mg/dl mg/dL (Negative) 12/15/17 17:00 Urine Glucose (UA) Neg mg/dL (Negative) 12/15/17 17:00 Urine Ketones Tr mg/dL (Negative) 12/15/17 17:00 Urine Blood Lg (Negative) 12/15/17 17:00 Urine Nitrite Neg (Negative) 12/15/17 17:00 Urine Bilirubin Neg (Negative) 12/15/17 17:00 Urine Ictotest Positive (Negative) 12/12/17 20:42 Urine Urobilinogen < 2.0 mg/dL (<2.0) 12/15/17 17:00 Ur Leukocyte Esterase Tr (Negative) 12/15/17 17:00 Urine WBC (Auto) 38.0 /HPF (0.0-6.0) H 12/15/17 17:00 Urine RBC (Auto) 65.0 /HPF (0.0-6.0) 12/15/17 17:00 U Epithel Cells (Auto) < 1.0 /HPF (0-13.0) 12/12/17 20:42 Urine Bacteria (Auto) 1+ /HPF (Negative) 12/15/17 17:00 Urine Mucus 1+ /HPF 12/12/17 20:42 Vancomycin Trough 10.5 ug/mL (5.0-20.0) 12/23/17 14:20 JERMAIN Screen Negative (Negative) 12/18/17 16:44 Proteinase 3 (PR3) Ab <1.0 AI (<1.0) 12/18/17 16:33 Myeloperoxidase Ab <1.0 AI (<1.0) 12/18/17 16:33 Complement C3 113 mg/dL (82-185) 12/18/17 16:33 Complement C4 15 mg/dL (15-53) 12/18/17 16:33 Hepatitis A IgM Ab Non-reactive (NonReactive) 12/20/17 13:40 Hep Bs Antigen Non-reactive (Negative) 12/20/17 13:40 Hep B Core IgM Ab Non-reactive (NonReactive) 12/20/17 13:40 Hepatitis C Antibody Non-reactive (NonReactive) 12/20/17 13:40 HIV 1&2 Antibody Rapid Non react (Non React) 12/20/17 13:40 HIV P24 Antigen Non react (Non React) 12/20/17 13:40 Influenza A (Rapid) Negative (Negative) 12/12/17 22:00 Influenza B (Rapid) Negative (Negative) 12/12/17 22:00 Urine Legionella Ag Not detected (Not Detected) 12/14/17 16:15 Miscellaneous Test Flexitest 1 12/14/17 16:15
--- NOTE | 2017-12-24 12:16 | Progress Note ---
Assessment and Plan 47 y/o male with acute respiratory failure thought secondary to H. Flu now with H. Flu bacteremia, sepsis and persistent fevers. 1. Will attempt bronch at the bedside if not later today, tomorrow afternoon. I think ID would agree with this. 2. Continue Librium dosing as ordered. Will stop seroquel for now. 3. Reviewed ID note. Would like to hold on [place] Scan currently if ok with them. 4. Not ready for extubation at this time. CCT 31 minutes. Subjective Date of service: 12/24/17 Principal diagnosis: ARDS Interval history: No acute events overnight. Tolerated the librium therapy well. Given seroquel last night but felt this was too much. Had some emesis this am. Objective Vital Signs - 12hr 12/24/17 12/24/17 12/24/17 00:20 00:30 00:40 Temperature Pulse Rate 75 74 79 Pulse Rate [ Anterior Bilateral Throughout] Pulse Rate [ From Monitor] Respiratory 24 24 17 Rate Respiratory Rate [Anterior Bilateral Throughout] Blood Pressure 158/93 173/97 168/97 O2 Sat by Pulse 97 98 98 Oximetry 12/24/17 12/24/17 12/24/17 00:50 01:00 01:04 Temperature Pulse Rate 80 77 77 Pulse Rate [ Anterior Bilateral Throughout] Pulse Rate [ From Monitor] Respiratory 20 24 Rate Respiratory Rate [Anterior Bilateral Throughout] Blood Pressure 168/97 173/97 173/97 O2 Sat by Pulse 98 96 Oximetry 12/24/17 12/24/17 12/24/17 01:10 01:20 01:30 Temperature Pulse Rate 80 82 82 Pulse Rate [ Anterior Bilateral Throughout] Pulse Rate [ From Monitor] Respiratory 28 H 29 H 29 H Rate Respiratory Rate [Anterior Bilateral Throughout] Blood Pressure 173/97 173/97 154/85 O2 Sat by Pulse 99 98 97 Oximetry 12/24/17 12/24/17 12/24/17 01:40 01:50 02:00 Temperature Pulse Rate 82 92 H 90 Pulse Rate [ 114 H Anterior Bilateral Throughout] Pulse Rate [ 74 From Monitor] Respiratory 30 H 36 H 22 Rate Respiratory 46 H Rate [Anterior Bilateral Throughout] Blood Pressure 154/85 154/85 156/84 O2 Sat by Pulse 97 99 98 Oximetry 12/24/17 12/24/17 12/24/17 02:10 02:20 02:30 Temperature Pulse Rate 97 H 99 H 104 H Pulse Rate [ Anterior Bilateral Throughout] Pulse Rate [ From Monitor] Respiratory 35 H 21 33 H Rate Respiratory Rate [Anterior Bilateral Throughout] Blood Pressure 156/84 156/84 156/84 O2 Sat by Pulse 98 99 100 Oximetry 12/24/17 12/24/17 12/24/17 02:40 02:50 03:00 Temperature Pulse Rate 106 H 89 111 H Pulse Rate [ Anterior Bilateral Throughout] Pulse Rate [ From Monitor] Respiratory 45 H 48 H 34 H Rate Respiratory Rate [Anterior Bilateral Throughout] Blood Pressure 244/128 244/128 178/92 O2 Sat by Pulse 97 98 99 Oximetry 12/24/17 12/24/17 12/24/17 03:10 03:14 03:20 Temperature Pulse Rate 109 H 110 H Pulse Rate [ 111 H Anterior Bilateral Throughout] Pulse Rate [ From Monitor] Respiratory 31 H 32 H Rate Respiratory 39 H Rate [Anterior Bilateral Throughout] Blood Pressure 178/92 178/92 O2 Sat by Pulse 98 98 Oximetry 12/24/17 12/24/17 12/24/17 03:30 03:40 03:50 Temperature Pulse Rate 105 H 106 H 102 H Pulse Rate [ Anterior Bilateral Throughout] Pulse Rate [ From Monitor] Respiratory 28 H 31 H 28 H Rate Respiratory Rate [Anterior Bilateral Throughout] Blood Pressure 143/79 143/79 143/79 O2 Sat by Pulse 97 98 98 Oximetry 12/24/17 12/24/17 12/24/17 03:53 04:00 04:10 Temperature 102.4 F H Pulse Rate 101 H 100 H Pulse Rate [ Anterior Bilateral Throughout] Pulse Rate [ 74 From Monitor] Respiratory 22 26 H Rate Respiratory Rate [Anterior Bilateral Throughout] Blood Pressure 130/74 130/74 O2 Sat by Pulse 98 98 Oximetry 12/24/17 12/24/17 12/24/17 04:20 04:30 04:38 Temperature Pulse Rate 101 H 98 H 101 H Pulse Rate [ Anterior Bilateral Throughout] Pulse Rate [ From Monitor] Respiratory 28 H 26 H Rate Respiratory Rate [Anterior Bilateral Throughout] Blood Pressure 130/74 124/73 130/74 O2 Sat by Pulse 98 96 98 Oximetry 12/24/17 12/24/17 12/24/17 04:40 04:50 05:00 Temperature Pulse Rate 98 H 97 H 94 H Pulse Rate [ Anterior Bilateral Throughout] Pulse Rate [ From Monitor] Respiratory 20 25 H 25 H Rate Respiratory Rate [Anterior Bilateral Throughout] Blood Pressure 124/73 124/73 121/71 O2 Sat by Pulse 98 98 95 Oximetry 12/24/17 12/24/17 12/24/17 05:10 05:20 05:30 Temperature Pulse Rate 100 H 98 H 102 H Pulse Rate [ Anterior Bilateral Throughout] Pulse Rate [ From Monitor] Respiratory 22 27 H 26 H Rate Respiratory Rate [Anterior Bilateral Throughout] Blood Pressure 121/71 121/71 127/77 O2 Sat by Pulse 98 98 96 Oximetry 12/24/17 12/24/17 12/24/17 05:40 05:50 06:00 Temperature Pulse Rate 107 H 87 98 H Pulse Rate [ Anterior Bilateral Throughout] Pulse Rate [ From Monitor] Respiratory 18 22 18 Rate Respiratory Rate [Anterior Bilateral Throughout] Blood Pressure 127/77 127/77 143/84 O2 Sat by Pulse 99 98 95 Oximetry 12/24/17 12/24/17 12/24/17 06:10 06:20 06:30 Temperature Pulse Rate 103 H 90 85 Pulse Rate [ Anterior Bilateral Throughout] Pulse Rate [ From Monitor] Respiratory 24 20 23 Rate Respiratory Rate [Anterior Bilateral Throughout] Blood Pressure 143/84 143/84 143/84 O2 Sat by Pulse 98 97 97 Oximetry 12/24/17 12/24/17 12/24/17 06:40 06:50 07:00 Temperature Pulse Rate 90 96 H 96 H Pulse Rate [ Anterior Bilateral Throughout] Pulse Rate [ From Monitor] Respiratory 19 13 20 Rate Respiratory Rate [Anterior Bilateral Throughout] Blood Pressure 147/88 147/88 147/88 O2 Sat by Pulse 98 98 99 Oximetry 12/24/17 12/24/17 12/24/17 07:10 07:20 07:30 Temperature Pulse Rate 93 H 92 H 92 H Pulse Rate [ Anterior Bilateral Throughout] Pulse Rate [ From Monitor] Respiratory 21 21 26 H Rate Respiratory Rate [Anterior Bilateral Throughout] Blood Pressure 139/85 139/85 155/86 O2 Sat by Pulse 98 98 96 Oximetry 12/24/17 12/24/17 12/24/17 07:40 07:50 08:00 Temperature Pulse Rate 104 H 93 H 105 H Pulse Rate [ Anterior Bilateral Throughout] Pulse Rate [ From Monitor] Respiratory 37 H 27 H 14 Rate Respiratory Rate [Anterior Bilateral Throughout] Blood Pressure 155/86 155/86 155/86 O2 Sat by Pulse 97 96 96 Oximetry 03/12/24/17 12/24/17 08:10 08:20 08:30 Temperature Pulse Rate 90 90 89 Pulse Rate [ Anterior Bilateral Throughout] Pulse Rate [ From Monitor] Respiratory 26 H 25 H 25 H Rate Respiratory Rate [Anterior Bilateral Throughout] Blood Pressure 168/90 168/90 163/88 O2 Sat by Pulse 96 97 96 Oximetry 12/24/17 12/24/17 12/24/17 08:35 08:40 08:50 Temperature Pulse Rate 88 89 91 H Pulse Rate [ Anterior Bilateral Throughout] Pulse Rate [ From Monitor] Respiratory 25 H 26 H Rate Respiratory Rate [Anterior Bilateral Throughout] Blood Pressure 163/88 163/88 163/88 O2 Sat by Pulse 98 98 98 Oximetry 12/24/17 12/24/17 09:00 11:14 Temperature Pulse Rate 91 H 101 H Pulse Rate [ Anterior Bilateral Throughout] Pulse Rate [ From Monitor] Respiratory 26 H Rate Respiratory Rate [Anterior Bilateral Throughout] Blood Pressure 166/88 151/88 O2 Sat by Pulse 96 Oximetry Constitutional: other (intubated, sedated) Eyes: non-icteric ENT: oropharynx moist Neck: supple Effort: normal Ascultation: Right: rales, Bilateral: diminished breath sounds, other (coarse BS bilaterally) Cardiovascular: regular rate and rhythm, other (tachycardic) Gastrointestinal: normoactive bowel sounds, soft, non-tender, non-distended, other (obese) Integumentary: normal Extremities: no cyanosis, no edema, pink and warm Neurologic: unable to assess (due to sedation) Psychiatric: other (not able to assess) CBC and BMP: 12/23/17 09:25 12/23/17 09:25 ABG, PT/INR, D-dimer: ABG POC ABG pH 7.573 (7.35-7.45) H 12/23/17 04:33 POC ABG pCO2 31.0 (35-45) L 12/23/17 04:33 POC ABG pO2 63 (80-105) L 12/23/17 04:33 POC ABG HCO3 28.6 12/23/17 04:33 POC ABG Total CO2 30 12/23/17 04:33 POC ABG O2 Sat 95 12/23/17 04:33 PT/INR, D-dimer PT 14.9 Sec. (12.2-14.9) 12/15/17 04:05 INR 1.11 (0.87-1.13) 12/15/17 04:05 Abnormal lab findings: Abnormal Labs 12/12/17 12/12/17 12/12/17 18:57 19:02 19:02 WBC RBC Hgb Hct MCV 96 H MCH 34 H MCHC 35 H RDW Plt Count 46 L Seg Neuts % (Manual) 77.0 H Lymphocytes % (Manual) 13.0 L Monocytes % (Manual) Nucleated RBC % Seg Neutrophils # Man Lymphocytes # (Manual) 0.9 L Monocytes # (Manual) APTT POC ABG pH POC ABG pCO2 POC ABG pO2 VBG pH Sodium Potassium Chloride Carbon Dioxide BUN Creatinine Glucose POC Glucose 321 H Lactic Acid 4.00 H* Calcium Total Bilirubin AST ALT C-Reactive Protein Albumin Triglycerides Amylase Lipase Urine WBC (Auto) 12/12/17 12/12/17 12/12/17 19:02 19:18 20:55 WBC RBC Hgb Hct MCV MCH MCHC RDW Plt Count Seg Neuts % (Manual) Lymphocytes % (Manual) Monocytes % (Manual) Nucleated RBC % Seg Neutrophils # Man Lymphocytes # (Manual) Monocytes # (Manual) APTT POC ABG pH POC ABG pCO2 POC ABG pO2 VBG pH 7.472 H Sodium 124 L Potassium Chloride 80.0 L Carbon Dioxide 20 L BUN Creatinine Glucose 382 H POC Glucose 283 H Lactic Acid Calcium 8.1 L Total Bilirubin 4.60 H AST 93 H ALT 112 H C-Reactive Protein Albumin 2.5 L Triglycerides Amylase Lipase Urine WBC (Auto) 12/12/17 12/13/17 12/13/17 21:41 00:45 01:29 WBC RBC Hgb Hct MCV MCH MCHC RDW Plt Count Seg Neuts % (Manual) Lymphocytes % (Manual) Monocytes % (Manual) Nucleated RBC % Seg Neutrophils # Man Lymphocytes # (Manual) Monocytes # (Manual) APTT POC ABG pH POC ABG pCO2 POC ABG pO2 VBG pH Sodium Potassium Chloride Carbon Dioxide BUN Creatinine Glucose POC Glucose Lactic Acid 4.20 H* 2.70 H* 3.30 H* Calcium Total Bilirubin AST ALT C-Reactive Protein Albumin Triglycerides Amylase Lipase Urine WBC (Auto) 12/13/17 12/13/17 12/13/17 02:19 03:44 05:58 WBC RBC Hgb Hct MCV 97 H MCH 34 H MCHC 35 H RDW Plt Count 41 L Seg Neuts % (Manual) Lymphocytes % (Manual) 8.0 L Monocytes % (Manual) 8.0 H Nucleated RBC % Seg Neutrophils # Man Lymphocytes # (Manual) 0.6 L Monocytes # (Manual) APTT POC ABG pH 7.334 L POC ABG pCO2 POC ABG pO2 43 L VBG pH Sodium Potassium Chloride Carbon Dioxide BUN Creatinine Glucose POC Glucose Lactic Acid 2.60 H* Calcium Total Bilirubin AST ALT C-Reactive Protein Albumin Triglycerides Amylase Lipase Urine WBC (Auto) 12/13/17 12/13/17 12/13/17 05:58 05:58 05:58 WBC RBC Hgb Hct MCV MCH MCHC RDW Plt Count Seg Neuts % (Manual) Lymphocytes % (Manual) Monocytes % (Manual) Nucleated RBC % Seg Neutrophils # Man Lymphocytes # (Manual) Monocytes # (Manual) APTT POC ABG pH POC ABG pCO2 POC ABG pO2 VBG pH Sodium 132 L D Potassium Chloride 90.0 L Carbon Dioxide 20 L BUN Creatinine Glucose 346 H POC Glucose 298 H Lactic Acid 4.50 H* Calcium 8.2 L Total Bilirubin AST ALT C-Reactive Protein Albumin Triglycerides Amylase Lipase Urine WBC (Auto) 12/13/17 12/13/17 12/13/17 06:27 09:42 11:47 WBC RBC Hgb Hct MCV MCH MCHC RDW Plt Count Seg Neuts % (Manual) Lymphocytes % (Manual) Monocytes % (Manual) Nucleated RBC % Seg Neutrophils # Man Lymphocytes # (Manual) Monocytes # (Manual) APTT POC ABG pH 7.267 L 7.298 L POC ABG pCO2 50.4 H 51.3 H POC ABG pO2 47 L 43 L VBG pH Sodium Potassium Chloride Carbon Dioxide BUN Creatinine Glucose POC Glucose 376 H Lactic Acid Calcium Total Bilirubin AST ALT C-Reactive Protein Albumin Triglycerides Amylase Lipase Urine WBC (Auto) 12/13/17 12/13/17 12/13/17 12:03 13:47 13:47 WBC RBC Hgb Hct MCV MCH MCHC RDW Plt Count Seg Neuts % (Manual) Lymphocytes % (Manual) Monocytes % (Manual) Nucleated RBC % Seg Neutrophils # Man Lymphocytes # (Manual) Monocytes # (Manual) APTT POC ABG pH 7.264 L POC ABG pCO2 54.9 H POC ABG pO2 55 L VBG pH Sodium Potassium Chloride Carbon Dioxide BUN Creatinine Glucose POC Glucose Lactic Acid 2.80 H* Calcium Total Bilirubin AST ALT C-Reactive Protein Albumin Triglycerides Amylase 20 L Lipase 9 L Urine WBC (Auto) 12/13/17 12/13/17 12/13/17 15:36 17:39 21:47 WBC RBC Hgb Hct MCV MCH MCHC RDW Plt Count Seg Neuts % (Manual) Lymphocytes % (Manual) Monocytes % (Manual) Nucleated RBC % Seg Neutrophils # Man Lymphocytes # (Manual) Monocytes # (Manual) APTT POC ABG pH 7.229 L 7.225 L POC ABG pCO2 60.9 H 66.3 H POC ABG pO2 42 L 41 L VBG pH Sodium Potassium Chloride Carbon Dioxide BUN Creatinine Glucose POC Glucose 289 H Lactic Acid Calcium Total Bilirubin AST ALT C-Reactive Protein Albumin Triglycerides Amylase Lipase Urine WBC (Auto) 12/13/17 12/14/17 12/14/17 22:19 02:03 05:16 WBC RBC Hgb Hct MCV MCH MCHC RDW Plt Count Seg Neuts % (Manual) Lymphocytes % (Manual) Monocytes % (Manual) Nucleated RBC % Seg Neutrophils # Man Lymphocytes # (Manual) Monocytes # (Manual) APTT POC ABG pH 7.247 L POC ABG pCO2 61.2 H POC ABG pO2 53 L VBG pH Sodium Potassium Chloride Carbon Dioxide BUN Creatinine Glucose POC Glucose 274 H 295 H Lactic Acid Calcium Total Bilirubin AST ALT C-Reactive Protein Albumin Triglycerides Amylase Lipase Urine WBC (Auto) 12/14/17 12/14/17 12/14/17 05:32 12:04 16:22 WBC RBC Hgb Hct MCV MCH MCHC RDW Plt Count Seg Neuts % (Manual) Lymphocytes % (Manual) Monocytes % (Manual) Nucleated RBC % Seg Neutrophils # Man Lymphocytes # (Manual) Monocytes # (Manual) APTT POC ABG pH POC ABG pCO2 POC ABG pO2 VBG pH Sodium Potassium Chloride Carbon Dioxide BUN Creatinine Glucose POC Glucose 230 H 241 H 231 H Lactic Acid Calcium Total Bilirubin AST ALT C-Reactive Protein Albumin Triglycerides Amylase Lipase Urine WBC (Auto) 12/14/17 12/15/17 12/15/17 21:29 02:29 03:25 WBC RBC Hgb Hct MCV MCH MCHC RDW Plt Count Seg Neuts % (Manual) Lymphocytes % (Manual) Monocytes % (Manual) Nucleated RBC % Seg Neutrophils # Man Lymphocytes # (Manual) Monocytes # (Manual) APTT POC ABG pH 7.330 L POC ABG pCO2 55.3 H POC ABG pO2 59 L VBG pH Sodium Potassium Chloride Carbon Dioxide BUN Creatinine Glucose POC Glucose 258 H 246 H Lactic Acid Calcium Total Bilirubin AST ALT C-Reactive Protein Albumin Triglycerides Amylase Lipase Urine WBC (Auto) 12/15/17 12/15/17 12/15/17 04:05 04:05 04:05 WBC 15.0 H RBC 3.40 L Hgb 11.3 L D Hct 33.8 L D MCV 100 H MCH 33 H MCHC RDW Plt Count 48 L Seg Neuts % (Manual) Lymphocytes % (Manual) 3.0 L Monocytes % (Manual) Nucleated RBC % 2.0 H Seg Neutrophils # Man Lymphocytes # (Manual) 0.5 L Monocytes # (Manual) 0.9 H APTT 20.9 L POC ABG pH POC ABG pCO2 POC ABG pO2 VBG pH Sodium Potassium Chloride Carbon Dioxide BUN 27 H Creatinine Glucose 258 H POC Glucose Lactic Acid Calcium 8.1 L Total Bilirubin AST ALT C-Reactive Protein Albumin Triglycerides Amylase Lipase Urine WBC (Auto) 12/15/17 12/15/17 12/15/17 05:32 11:17 14:59 WBC RBC Hgb Hct MCV MCH MCHC RDW Plt Count Seg Neuts % (Manual) Lymphocytes % (Manual) Monocytes % (Manual) Nucleated RBC % Seg Neutrophils # Man Lymphocytes # (Manual) Monocytes # (Manual) APTT POC ABG pH POC ABG pCO2 POC ABG pO2 VBG pH Sodium Potassium Chloride Carbon Dioxide BUN Creatinine Glucose POC Glucose 247 H 268 H 233 H Lactic Acid Calcium Total Bilirubin AST ALT C-Reactive Protein Albumin Triglycerides Amylase Lipase Urine WBC (Auto) 12/15/17 12/15/17 12/15/17 17:00 18:59 21:37 WBC RBC Hgb Hct MCV MCH MCHC RDW Plt Count Seg Neuts % (Manual) Lymphocytes % (Manual) Monocytes % (Manual) Nucleated RBC % Seg Neutrophils # Man Lymphocytes # (Manual) Monocytes # (Manual) APTT POC ABG pH POC ABG pCO2 POC ABG pO2 VBG pH Sodium Potassium Chloride Carbon Dioxide BUN Creatinine Glucose POC Glucose 195 H 208 H Lactic Acid Calcium Total Bilirubin AST ALT C-Reactive Protein Albumin Triglycerides Amylase Lipase Urine WBC (Auto) 38.0 H 12/16/17 12/16/17 12/16/17 03:17 03:33 04:18 WBC 16.4 H RBC 3.50 L Hgb 11.3 L Hct 35.4 L MCV 101 H MCH MCHC RDW Plt Count 54 L Seg Neuts % (Manual) Lymphocytes % (Manual) Monocytes % (Manual) Nucleated RBC % Seg Neutrophils # Man Lymphocytes # (Manual) Monocytes # (Manual) APTT POC ABG pH POC ABG pCO2 47.7 H POC ABG pO2 VBG pH Sodium Potassium Chloride Carbon Dioxide BUN Creatinine Glucose POC Glucose 227 H Lactic Acid Calcium Total Bilirubin AST ALT C-Reactive Protein Albumin Triglycerides Amylase Lipase Urine WBC (Auto) 12/16/17 12/16/17 12/16/17 04:18 05:08 10:01 WBC RBC Hgb Hct MCV MCH MCHC RDW Plt Count Seg Neuts % (Manual) Lymphocytes % (Manual) Monocytes % (Manual) Nucleated RBC % Seg Neutrophils # Man Lymphocytes # (Manual) Monocytes # (Manual) APTT POC ABG pH POC ABG pCO2 POC ABG pO2 VBG pH Sodium 147 H Potassium Chloride 107.4 H Carbon Dioxide BUN 28 H Creatinine Glucose 240 H POC Glucose 227 H 190 H Lactic Acid Calcium 8.3 L Total Bilirubin AST ALT C-Reactive Protein Albumin Triglycerides Amylase Lipase Urine WBC (Auto) 12/16/17 12/16/17 12/16/17 14:15 17:51 21:14 WBC RBC Hgb Hct MCV MCH MCHC RDW Plt Count Seg Neuts % (Manual) Lymphocytes % (Manual) Monocytes % (Manual) Nucleated RBC % Seg Neutrophils # Man Lymphocytes # (Manual) Monocytes # (Manual) APTT POC ABG pH POC ABG pCO2 POC ABG pO2 VBG pH Sodium Potassium Chloride Carbon Dioxide BUN Creatinine Glucose POC Glucose 279 H 272 H 260 H Lactic Acid Calcium Total Bilirubin AST ALT C-Reactive Protein Albumin Triglycerides Amylase Lipase Urine WBC (Auto) 12/17/17 12/17/17 12/17/17 02:41 04:28 04:28 WBC 19.1 H RBC 3.50 L Hgb 11.4 L Hct 35.3 L MCV 101 H MCH 33 H MCHC RDW Plt Count 65 L Seg Neuts % (Manual) Lymphocytes % (Manual) Monocytes % (Manual) Nucleated RBC % Seg Neutrophils # Man Lymphocytes # (Manual) Monocytes # (Manual) APTT POC ABG pH POC ABG pCO2 POC ABG pO2 VBG pH Sodium 153 H Potassium Chloride 111.2 H Carbon Dioxide 31 H BUN 28 H Creatinine Glucose 248 H POC Glucose 300 H Lactic Acid Calcium Total Bilirubin AST ALT C-Reactive Protein Albumin Triglycerides Amylase Lipase Urine WBC (Auto) 12/17/17 12/17/17 12/17/17 05:15 05:38 10:16 WBC RBC Hgb Hct MCV MCH MCHC RDW Plt Count Seg Neuts % (Manual) Lymphocytes % (Manual) Monocytes % (Manual) Nucleated RBC % Seg Neutrophils # Man Lymphocytes # (Manual) Monocytes # (Manual) APTT POC ABG pH POC ABG pCO2 50.3 H POC ABG pO2 120 H VBG pH Sodium Potassium Chloride Carbon Dioxide BUN Creatinine Glucose POC Glucose 231 H 196 H Lactic Acid Calcium Total Bilirubin AST ALT C-Reactive Protein Albumin Triglycerides Amylase Lipase Urine WBC (Auto) 12/17/17 12/17/17 12/17/17 14:22 18:14 21:35 WBC RBC Hgb Hct MCV MCH MCHC RDW Plt Count Seg Neuts % (Manual) Lymphocytes % (Manual) Monocytes % (Manual) Nucleated RBC % Seg Neutrophils # Man Lymphocytes # (Manual) Monocytes # (Manual) APTT POC ABG pH POC ABG pCO2 POC ABG pO2 VBG pH Sodium Potassium Chloride Carbon Dioxide BUN Creatinine Glucose POC Glucose 234 H 215 H 159 H Lactic Acid Calcium Total Bilirubin AST ALT C-Reactive Protein Albumin Triglycerides Amylase Lipase Urine WBC (Auto) 12/18/17 12/18/17 12/18/17 00:53 02:58 06:03 WBC RBC Hgb Hct MCV MCH MCHC RDW Plt Count Seg Neuts % (Manual) Lymphocytes % (Manual) Monocytes % (Manual) Nucleated RBC % Seg Neutrophils # Man Lymphocytes # (Manual) Monocytes # (Manual) APTT POC ABG pH POC ABG pCO2 56.4 H POC ABG pO2 46 L VBG pH Sodium Potassium Chloride Carbon Dioxide BUN Creatinine Glucose POC Glucose 176 H 143 H Lactic Acid Calcium Total Bilirubin AST ALT C-Reactive Protein Albumin Triglycerides Amylase Lipase Urine WBC (Auto) 12/18/17 12/18/17 12/18/17 07:59 09:20 09:20 WBC 27.4 H RBC 3.57 L Hgb 11.4 L Hct MCV 101 H MCH MCHC RDW Plt Count 64 L Seg Neuts % (Manual) Lymphocytes % (Manual) Monocytes % (Manual) Nucleated RBC % Seg Neutrophils # Man Lymphocytes # (Manual) Monocytes # (Manual) APTT POC ABG pH POC ABG pCO2 POC ABG pO2 VBG pH Sodium 152 H Potassium Chloride 107.9 H Carbon Dioxide 34 H BUN 23 H Creatinine 0.7 L Glucose 181 H POC Glucose 197 H Lactic Acid Calcium Total Bilirubin AST ALT C-Reactive Protein Albumin Triglycerides Amylase Lipase Urine WBC (Auto) 12/18/17 12/18/17 12/18/17 10:22 15:03 18:15 WBC RBC Hgb Hct MCV MCH MCHC RDW Plt Count Seg Neuts % (Manual) Lymphocytes % (Manual) Monocytes % (Manual) Nucleated RBC % Seg Neutrophils # Man Lymphocytes # (Manual) Monocytes # (Manual) APTT POC ABG pH POC ABG pCO2 POC ABG pO2 VBG pH Sodium Potassium Chloride Carbon Dioxide BUN Creatinine Glucose POC Glucose 195 H 225 H 238 H Lactic Acid Calcium Total Bilirubin AST ALT C-Reactive Protein Albumin Triglycerides Amylase Lipase Urine WBC (Auto) 12/18/17 12/18/17 12/19/17 18:29 21:53 00:18 WBC RBC Hgb Hct MCV MCH MCHC RDW Plt Count Seg Neuts % (Manual) Lymphocytes % (Manual) Monocytes % (Manual) Nucleated RBC % Seg Neutrophils # Man Lymphocytes # (Manual) Monocytes # (Manual) APTT POC ABG pH 7.476 H POC ABG pCO2 50.4 H POC ABG pO2 158 H VBG pH Sodium Potassium Chloride Carbon Dioxide BUN Creatinine Glucose POC Glucose 231 H 263 H Lactic Acid Calcium Total Bilirubin AST ALT C-Reactive Protein Albumin Triglycerides Amylase Lipase Urine WBC (Auto) 12/19/17 12/19/17 12/19/17 02:09 04:07 04:07 WBC 25.9 H RBC 3.25 L Hgb 10.6 L Hct 32.8 L MCV 101 H MCH 33 H MCHC RDW Plt Count 67 L Seg Neuts % (Manual) Lymphocytes % (Manual) 4.0 L Monocytes % (Manual) Nucleated RBC % Seg Neutrophils # Man 14.8 H Lymphocytes # (Manual) 1.0 L Monocytes # (Manual) APTT POC ABG pH POC ABG pCO2 POC ABG pO2 VBG pH Sodium 148 H Potassium Chloride Carbon Dioxide BUN 31 H Creatinine Glucose 314 H POC Glucose 300 H Lactic Acid Calcium 8.1 L Total Bilirubin AST ALT C-Reactive Protein Albumin Triglycerides Amylase Lipase Urine WBC (Auto) 12/19/17 12/19/17 12/19/17 05:15 05:41 07:57 WBC RBC Hgb Hct MCV MCH MCHC RDW Plt Count Seg Neuts % (Manual) Lymphocytes % (Manual) Monocytes % (Manual) Nucleated RBC % Seg Neutrophils # Man Lymphocytes # (Manual) Monocytes # (Manual) APTT POC ABG pH 7.507 H POC ABG pCO2 POC ABG pO2 VBG pH Sodium Potassium Chloride Carbon Dioxide BUN Creatinine Glucose POC Glucose 331 H 307 H Lactic Acid Calcium Total Bilirubin AST ALT C-Reactive Protein Albumin Triglycerides Amylase Lipase Urine WBC (Auto) 12/19/17 12/19/17 12/19/17 10:21 14:48 17:59 WBC RBC Hgb Hct MCV MCH MCHC RDW Plt Count Seg Neuts % (Manual) Lymphocytes % (Manual) Monocytes % (Manual) Nucleated RBC % Seg Neutrophils # Man Lymphocytes # (Manual) Monocytes # (Manual) APTT POC ABG pH POC ABG pCO2 POC ABG pO2 VBG pH Sodium Potassium Chloride Carbon Dioxide BUN Creatinine Glucose POC Glucose 358 H 327 H 355 H Lactic Acid Calcium Total Bilirubin AST ALT C-Reactive Protein Albumin Triglycerides Amylase Lipase Urine WBC (Auto) 12/19/17 12/20/17 12/20/17 21:38 02:21 03:42 WBC RBC Hgb Hct MCV MCH MCHC RDW Plt Count Seg Neuts % (Manual) Lymphocytes % (Manual) Monocytes % (Manual) Nucleated RBC % Seg Neutrophils # Man Lymphocytes # (Manual) Monocytes # (Manual) APTT POC ABG pH 7.494 H POC ABG pCO2 POC ABG pO2 VBG pH Sodium Potassium Chloride Carbon Dioxide BUN Creatinine Glucose POC Glucose 329 H 354 H Lactic Acid Calcium Total Bilirubin AST ALT C-Reactive Protein Albumin Triglycerides Amylase Lipase Urine WBC (Auto) 12/20/17 12/20/17 12/20/17 04:08 04:08 04:08 WBC 22.7 H RBC 3.26 L Hgb 10.6 L Hct 32.9 L MCV 101 H MCH 33 H MCHC RDW Plt Count 78 L Seg Neuts % (Manual) 80.0 H Lymphocytes % (Manual) 6.0 L Monocytes % (Manual) Nucleated RBC % Seg Neutrophils # Man 18.2 H Lymphocytes # (Manual) Monocytes # (Manual) APTT POC ABG pH POC ABG pCO2 POC ABG pO2 VBG pH Sodium Potassium Chloride Carbon Dioxide 31 H BUN 30 H Creatinine 0.6 L Glucose 365 H POC Glucose Lactic Acid Calcium Total Bilirubin AST ALT C-Reactive Protein Albumin Triglycerides 981 H Amylase Lipase Urine WBC (Auto) 12/20/17 12/20/17 12/20/17 05:15 10:47 13:40 WBC RBC Hgb Hct MCV MCH MCHC RDW Plt Count Seg Neuts % (Manual) Lymphocytes % (Manual) Monocytes % (Manual) Nucleated RBC % Seg Neutrophils # Man Lymphocytes # (Manual) Monocytes # (Manual) APTT POC ABG pH POC ABG pCO2 POC ABG pO2 VBG pH Sodium Potassium Chloride Carbon Dioxide BUN Creatinine Glucose POC Glucose 342 H 330 H Lactic Acid Calcium Total Bilirubin AST ALT C-Reactive Protein 7.10 H Albumin Triglycerides Amylase Lipase Urine WBC (Auto) 12/20/17 12/20/17 12/20/17 13:40 14:52 16:55 WBC RBC Hgb Hct MCV MCH MCHC RDW Plt Count Seg Neuts % (Manual) Lymphocytes % (Manual) Monocytes % (Manual) Nucleated RBC % Seg Neutrophils # Man Lymphocytes # (Manual) Monocytes # (Manual) APTT POC ABG pH 7.484 H POC ABG pCO2 POC ABG pO2 VBG pH Sodium Potassium Chloride Carbon Dioxide BUN Creatinine Glucose POC Glucose 293 H Lactic Acid Calcium Total Bilirubin AST ALT C-Reactive Protein Albumin Triglycerides 1042 H Amylase Lipase Urine WBC (Auto) 12/20/17 12/20/17 12/21/17 18:00 21:58 02:05 WBC RBC Hgb Hct MCV MCH MCHC RDW Plt Count Seg Neuts % (Manual) Lymphocytes % (Manual) Monocytes % (Manual) Nucleated RBC % Seg Neutrophils # Man Lymphocytes # (Manual) Monocytes # (Manual) APTT POC ABG pH POC ABG pCO2 POC ABG pO2 VBG pH Sodium Potassium Chloride Carbon Dioxide BUN Creatinine Glucose POC Glucose 268 H 272 H 229 H Lactic Acid Calcium Total Bilirubin AST ALT C-Reactive Protein Albumin Triglycerides Amylase Lipase Urine WBC (Auto) 12/21/17 12/21/17 12/21/17 03:59 06:23 08:57 WBC RBC Hgb Hct MCV MCH MCHC RDW Plt Count Seg Neuts % (Manual) Lymphocytes % (Manual) Monocytes % (Manual) Nucleated RBC % Seg Neutrophils # Man Lymphocytes # (Manual) Monocytes # (Manual) APTT POC ABG pH 7.474 H POC ABG pCO2 POC ABG pO2 71 L VBG pH Sodium Potassium Chloride Carbon Dioxide BUN Creatinine Glucose POC Glucose 182 H 217 H Lactic Acid Calcium Total Bilirubin AST ALT C-Reactive Protein Albumin Triglycerides Amylase Lipase Urine WBC (Auto) 12/21/17 12/21/17 12/21/17 13:59 18:00 21:20 WBC RBC Hgb Hct MCV MCH MCHC RDW Plt Count Seg Neuts % (Manual) Lymphocytes % (Manual) Monocytes % (Manual) Nucleated RBC % Seg Neutrophils # Man Lymphocytes # (Manual) Monocytes # (Manual) APTT POC ABG pH POC ABG pCO2 POC ABG pO2 VBG pH Sodium Potassium Chloride Carbon Dioxide BUN Creatinine Glucose POC Glucose 185 H 176 H 187 H Lactic Acid Calcium Total Bilirubin AST ALT C-Reactive Protein Albumin Triglycerides Amylase Lipase Urine WBC (Auto) 12/21/17 12/22/17 12/22/17 23:48 04:39 05:30 WBC RBC Hgb Hct MCV MCH MCHC RDW Plt Count Seg Neuts % (Manual) Lymphocytes % (Manual) Monocytes % (Manual) Nucleated RBC % Seg Neutrophils # Man Lymphocytes # (Manual) Monocytes # (Manual) APTT POC ABG pH 7.528 H POC ABG pCO2 POC ABG pO2 63 L VBG pH Sodium Potassium Chloride Carbon Dioxide BUN Creatinine Glucose POC Glucose 126 H 117 H Lactic Acid Calcium Total Bilirubin AST ALT C-Reactive Protein Albumin Triglycerides Amylase Lipase Urine WBC (Auto) 12/22/17 12/22/17 12/22/17 09:12 10:34 10:34 WBC 29.5 H RBC 3.44 L Hgb 11.2 L Hct 34.2 L MCV 99 H MCH 33 H MCHC RDW 13.1 L Plt Count 97 L Seg Neuts % (Manual) 88.0 H Lymphocytes % (Manual) 5.0 L Monocytes % (Manual) Nucleated RBC % Seg Neutrophils # Man 26.0 H Lymphocytes # (Manual) Monocytes # (Manual) APTT POC ABG pH POC ABG pCO2 POC ABG pO2 VBG pH Sodium 146 H Potassium 3.1 L Chloride Carbon Dioxide BUN 25 H Creatinine 0.7 L Glucose 146 H POC Glucose 168 H Lactic Acid Calcium 8.1 L Total Bilirubin AST ALT C-Reactive Protein Albumin Triglycerides Amylase Lipase Urine WBC (Auto) 12/22/17 12/22/17 12/22/17 14:51 17:21 21:43 WBC RBC Hgb Hct MCV MCH MCHC RDW Plt Count Seg Neuts % (Manual) Lymphocytes % (Manual) Monocytes % (Manual) Nucleated RBC % Seg Neutrophils # Man Lymphocytes # (Manual) Monocytes # (Manual) APTT POC ABG pH POC ABG pCO2 POC ABG pO2 VBG pH Sodium Potassium Chloride Carbon Dioxide BUN Creatinine Glucose POC Glucose 125 H 110 H 153 H Lactic Acid Calcium Total Bilirubin AST ALT C-Reactive Protein Albumin Triglycerides Amylase Lipase Urine WBC (Auto) 12/23/17 12/23/17 12/23/17 04:33 05:28 09:25 WBC 31.4 H RBC 3.05 L Hgb 9.8 L Hct 30.2 L MCV 99 H MCH MCHC RDW 12.9 L Plt Count 101 L Seg Neuts % (Manual) 97 H Lymphocytes % (Manual) 2 L Monocytes % (Manual) Nucleated RBC % Seg Neutrophils # Man 31.1 H Lymphocytes # (Manual) 0.5 L Monocytes # (Manual) APTT POC ABG pH 7.573 H POC ABG pCO2 31.0 L POC ABG pO2 63 L VBG pH Sodium Potassium Chloride Carbon Dioxide BUN Creatinine Glucose POC Glucose 124 H Lactic Acid Calcium Total Bilirubin AST ALT C-Reactive Protein Albumin Triglycerides Amylase Lipase Urine WBC (Auto) 12/23/17 12/23/17 12/23/17 09:25 10:08 14:20 WBC RBC Hgb Hct MCV MCH MCHC RDW Plt Count Seg Neuts % (Manual) Lymphocytes % (Manual) Monocytes % (Manual) Nucleated RBC % Seg Neutrophils # Man Lymphocytes # (Manual) Monocytes # (Manual) APTT POC ABG pH POC ABG pCO2 POC ABG pO2 VBG pH Sodium Potassium 3.1 L Chloride Carbon Dioxide BUN Creatinine 0.6 L Glucose 169 H POC Glucose 171 H 211 H Lactic Acid Calcium 7.9 L Total Bilirubin AST ALT C-Reactive Protein Albumin Triglycerides Amylase Lipase Urine WBC (Auto) 12/23/17 12/23/17 12/24/17 18:59 21:49 01:47 WBC RBC Hgb Hct MCV MCH MCHC RDW Plt Count Seg Neuts % (Manual) Lymphocytes % (Manual) Monocytes % (Manual) Nucleated RBC % Seg Neutrophils # Man Lymphocytes # (Manual) Monocytes # (Manual) APTT POC ABG pH POC ABG pCO2 POC ABG pO2 VBG pH Sodium Potassium Chloride Carbon Dioxide BUN Creatinine Glucose POC Glucose 175 H 146 H 143 H Lactic Acid Calcium Total Bilirubin AST ALT C-Reactive Protein Albumin Triglycerides Amylase Lipase Urine WBC (Auto) 12/24/17 05:40 WBC RBC Hgb Hct MCV MCH MCHC RDW Plt Count Seg Neuts % (Manual) Lymphocytes % (Manual) Monocytes % (Manual) Nucleated RBC % Seg Neutrophils # Man Lymphocytes # (Manual) Monocytes # (Manual) APTT POC ABG pH POC ABG pCO2 POC ABG pO2 VBG pH Sodium Potassium Chloride Carbon Dioxide BUN Creatinine Glucose POC Glucose 118 H Lactic Acid Calcium Total Bilirubin AST ALT C-Reactive Protein Albumin Triglycerides Amylase Lipase Urine WBC (Auto)
[2017-12-24] MEDS: LANTUS SUB-Q SCH (13:10)
[2017-12-24] MEDS: VANCOMYCIN 2,000 MG in NACL 0.9% 500 ML 500 ML IV SCH (16:29)
[2017-12-24] MEDS: SODIUM CHLORIDE FLUSH SYRINGE 10 ML IV SCH ×2 (16:34→22:05)
[2017-12-24] MEDS: MIDAZOLAM 100 MG in NACL 0.9% 80 ML IV SCH (17:45)
--- NOTE | 2017-12-24 18:28 | Ultrasound Report ---
FINAL REPORT EXAM: US ABDOMEN COMPLETE HISTORY: severe sepsis unclear source TECHNIQUE: Standard ultrasound of the abdomen PRIORS: None. FINDINGS: Examination of the gallbladder demonstrates the gallbladder to be contracted. There is no evidence for gallstones, distention, wall thickening, or pericholecystic fluid. No sonographic Molina's sign is elicited. Common bile duct is normal in diameter measuring 1.7 mm. The liver is normal and homogeneous in echogenicity without focal abnormality or intrahepatic biliary dilatation. The pancreas is not well visualized due to bowel gas. The spleen is normal in length measuring 7.6 cm and homogeneous in echogenicity without focal abnormalities. Examination of the kidneys demonstrates both to be normal in size and have normal cortical echogenicity and thickness. The right and left kidneys measure 13.1 cm and 13.0 cm in craniocaudal length, respectively. No evidence for calculi, hydronephrosis, or solid mass is seen in either kidney. There is an anechoic thin-walled cyst in the upper pole of the right kidney measuring 2.3 x 2.1 x 2.4 cm. The inferior vena cava and aorta are normal. Maximum diameter of the aorta is 2.1 cm in its proximal portion. IMPRESSION: 1. Essentially negative ultrasound of the abdomen. 2. Cyst in the upper pole right kidney with benign characteristics 3. Gallbladder is contracted.
[2017-12-25] MEDS: DUONEB *Not for PRN Use IH SCH ×4 (02:10→20:30)
[2017-12-25] MEDS: HumaLOG SUB-Q SCH ×4 (02:25→15:00)
[2017-12-25] MEDS: DEXMEDETOMIDINE 200 MCG in NACL 0.9% 48 ML IV SCH ×7 (02:55→23:28)
[2017-12-25 04:09] LABS: Hematocrit 27.1 % (35.5-45.6); Hemoglobin 9.1 gm/dl (11.8-15.2); Mean Corpuscular HGB Conc 34 % (32-34); Mean Corpuscular Hemoglobin 33 pg (28-32); Mean Corpuscular Volume 99 fl (84-94); Platelet Count 126 K/mm3 (140-440); Red Blood Count 2.75 M/mm3 (3.65-5.03); Red Cell Distribution Width 13.4 % (13.2-15.2)
[2017-12-25 04:24] LABS: BUN/Creatinine Ratio 23; Blood Urea Nitrogen 14 mg/dL (9-20); Calcium 7.4 mg/dL (8.4-10.2); Hemolysis Index 5
[2017-12-25] MEDS: DILAUDID PO SCH ×4 (05:04→23:29)
[2017-12-25] MEDS: LIBRIUM PO SCH ×4 (05:04→22:41)
[2017-12-25] MEDS: FLAGYL 500 MG/100 ML 500 MG/100 ML BAG IV SCH ×3 (05:05→22:10)
[2017-12-25] MEDS: MAXIPIME 2 GM in NACL 0.9% 20 ML IV SCH ×3 (05:12→22:25)
[2017-12-25] MEDS ORDERED: POTASSIUM CHLORIDE FEEDTUBE ONE (05:34)
[2017-12-25] MEDS: VANCOMYCIN 2,000 MG in NACL 0.9% 500 ML 500 ML IV SCH ×3 (05:39→13:10)
[2017-12-25 06:00] LABS: Anisocytosis 1+; Band Neutrophils # (Manual) 0.3 K/mm3; Basophils % (Manual) 0 % (0.0-1.8); Eosinophils % (Manual) 0 % (0.0-4.3); Monocytes % (Manual) 3.5 % (0.0-7.3); Platelet Estimate Consistent w Auto; Total Cells Counted 200
[2017-12-25] MEDS: KCL 10MEQ/100ML 10 MEQ/100 ML BAG IV SCH ×4 (08:29→12:03)
[2017-12-25] MEDS: LANTUS SUB-Q SCH (09:28)
[2017-12-25] MEDS: PEPCID PO SCH ×2 (09:29→22:09)
[2017-12-25] MEDS: VITAMIN B-1 PO SCH (09:29)
[2017-12-25] MEDS: LOPRESSOR PO SCH ×2 (09:30→22:09)
--- NOTE | 2017-12-25 11:03 | XRay Report ---
PORTABLE CHEST INDICATION: Hypoxemia, right lower lobe infiltrate. COMPARISON: 12/23/2017 FINDINGS: Portable, frontal chest radiograph again demonstrates right lung pneumonia, greatest in the mid to lower zone. Hemidiaphragms now obscured bilaterally with some possible worsening at the left lung base. Grossly stable cardiomediastinal silhouette, endotracheal and nasogastric tubes, right upper extremity PICC and osseous structures. EKG leads. CONCLUSION: Various supporting devices and right lung pneumonia again noted with possibly developing left lung base pneumonia, as detailed above. Please also correlate clinically and follow up on subsequent exams. Thank you for the opportunity to participate in this patient's care.
[2017-12-25] MEDS: POTASSIUM CHLORIDE PO SCH (11:06)
[2017-12-25] MEDS: SODIUM CHLORIDE FLUSH SYRINGE 10 ML IV SCH (11:06)
--- NOTE | 2017-12-25 11:08 | Vascular Lab Report ---
LOWER EXTREMITY VENOUS DUPLEX: REASON FOR EXAM: Fever, deep venous thrombosis. COMMENTS ON THE RIGHT: All veins visualized are freely compressible without evidence of internal echogenicity. Flow is spontaneous and phasic throughout. COMMENTS ON THE LEFT: All veins visualized are freely compressible without evidence of internal echogenicity. Flow is spontaneous and phasic throughout. IMPRESSION: No evidence of acute or chronic deep venous thrombosis in either lower extremity.
[2017-12-25] MEDS ORDERED: PANCREAZE DR 10,500 UNIT FEEDTUBE PRN (11:57)
[2017-12-25] MEDS ORDERED: SIMPLE SYRUP FEEDTUBE PRN ×2 (11:57)
[2017-12-25] MEDS ORDERED: SODIUM BICARBONATE FEEDTUBE PRN (11:57)
[2017-12-25] MEDS: HEPARIN SUB-Q SCH ×2 (13:10→22:07)
[2017-12-25] MEDS ORDERED: LASIX IV NR (13:18)
--- NOTE | 2017-12-25 13:22 | Progress Note ---
Assessment and Plan 47 y/o male with acute respiratory failure thought secondary to H. Flu now with H. Flu bacteremia, sepsis and persistent fevers. 1. Hold on bronch, will given a one time dose of lasix for now. 2. Continue Librium dosing as ordered. 3. Reviewed ID note. Would like to hold on [place] Scan currently if ok with them. 4. Not ready for extubation at this time. CCT 31 minutes. Subjective Date of service: 12/25/17 Principal diagnosis: ARDS Interval history: No acute events. Better night last night. at bedside. Patient awake, calm, following commands. Peep down to 6. CXR shows what I feel is improvement in the right lung. Maybe worsening edema. Has been positive throughout. Objective Vital Signs - 12hr 12/25/17 12/25/17 12/25/17 01:21 01:30 01:41 Temperature Pulse Rate 78 77 83 Pulse Rate [ Anterior Bilateral Throughout] Pulse Rate [ From Monitor] Respiratory 23 23 29 H Rate Respiratory Rate [Anterior Bilateral Throughout] Blood Pressure 139/73 127/67 127/67 O2 Sat by Pulse 97 96 97 Oximetry 12/25/17 12/25/17 12/25/17 01:45 01:51 02:00 Temperature Pulse Rate 77 76 Pulse Rate [ Anterior Bilateral Throughout] Pulse Rate [ 76 76 From Monitor] Respiratory 25 H 26 H 24 Rate Respiratory Rate [Anterior Bilateral Throughout] Blood Pressure 127/67 122/72 O2 Sat by Pulse 99 95 95 Oximetry 12/25/17 12/25/17 12/25/17 02:05 02:11 02:21 Temperature Pulse Rate 76 80 Pulse Rate [ 77 Anterior Bilateral Throughout] Pulse Rate [ From Monitor] Respiratory 17 27 H Rate Respiratory 25 H Rate [Anterior Bilateral Throughout] Blood Pressure 122/72 122/72 O2 Sat by Pulse 99 96 Oximetry 12/25/17 12/25/17 12/25/17 02:30 02:41 02:51 Temperature Pulse Rate 81 82 82 Pulse Rate [ Anterior Bilateral Throughout] Pulse Rate [ From Monitor] Respiratory 26 H 26 H 26 H Rate Respiratory Rate [Anterior Bilateral Throughout] Blood Pressure 136/71 136/71 136/71 O2 Sat by Pulse 95 95 94 Oximetry 12/25/17 12/25/17 12/25/17 03:00 03:11 03:21 Temperature Pulse Rate 80 79 78 Pulse Rate [ Anterior Bilateral Throughout] Pulse Rate [ From Monitor] Respiratory 26 H 26 H 25 H Rate Respiratory Rate [Anterior Bilateral Throughout] Blood Pressure 123/68 123/68 123/68 O2 Sat by Pulse 97 96 96 Oximetry 12/25/17 12/25/17 12/25/17 03:26 03:30 03:41 Temperature Pulse Rate 79 77 78 Pulse Rate [ Anterior Bilateral Throughout] Pulse Rate [ From Monitor] Respiratory 8 L 25 H 26 H Rate Respiratory Rate [Anterior Bilateral Throughout] Blood Pressure 123/68 133/74 133/74 O2 Sat by Pulse 96 96 Oximetry 12/25/17 12/25/17 12/25/17 03:51 04:00 04:11 Temperature 99.9 F H Pulse Rate 77 77 78 Pulse Rate [ Anterior Bilateral Throughout] Pulse Rate [ 76 From Monitor] Respiratory 24 25 H 22 Rate Respiratory Rate [Anterior Bilateral Throughout] Blood Pressure 133/74 133/72 133/72 O2 Sat by Pulse 97 99 95 Oximetry 12/25/17 12/25/17 12/25/17 04:21 04:30 04:41 Temperature Pulse Rate 79 85 93 H Pulse Rate [ Anterior Bilateral Throughout] Pulse Rate [ From Monitor] Respiratory 24 26 H 28 H Rate Respiratory Rate [Anterior Bilateral Throughout] Blood Pressure 133/72 148/81 148/81 O2 Sat by Pulse 96 97 97 Oximetry 12/25/17 12/25/17 12/25/17 04:51 05:00 05:04 Temperature Pulse Rate 93 H 92 H Pulse Rate [ Anterior Bilateral Throughout] Pulse Rate [ From Monitor] Respiratory 22 28 H 28 H Rate Respiratory Rate [Anterior Bilateral Throughout] Blood Pressure 148/81 144/78 O2 Sat by Pulse 100 Oximetry 12/25/17 12/25/17 12/25/17 05:11 05:17 05:21 Temperature Pulse Rate 90 90 Pulse Rate [ Anterior Bilateral Throughout] Pulse Rate [ From Monitor] Respiratory 27 H 26 H 27 H Rate Respiratory Rate [Anterior Bilateral Throughout] Blood Pressure 144/78 144/78 O2 Sat by Pulse 95 94 Oximetry 12/25/17 12/25/17 12/25/17 05:30 05:41 05:51 Temperature Pulse Rate 91 H 90 94 H Pulse Rate [ Anterior Bilateral Throughout] Pulse Rate [ From Monitor] Respiratory 26 H 27 H 25 H Rate Respiratory Rate [Anterior Bilateral Throughout] Blood Pressure 150/79 150/79 150/79 O2 Sat by Pulse 95 93 Oximetry 12/25/17 12/25/17 12/25/17 06:00 06:11 06:21 Temperature Pulse Rate 96 H 93 H 96 H Pulse Rate [ Anterior Bilateral Throughout] Pulse Rate [ 76 From Monitor] Respiratory 19 27 H 33 H Rate Respiratory Rate [Anterior Bilateral Throughout] Blood Pressure 144/74 144/74 144/74 O2 Sat by Pulse 100 95 96 Oximetry 12/25/17 12/25/17 12/25/17 06:30 06:41 06:51 Temperature Pulse Rate 95 H 98 H 100 H Pulse Rate [ Anterior Bilateral Throughout] Pulse Rate [ From Monitor] Respiratory 30 H 30 H 24 Rate Respiratory Rate [Anterior Bilateral Throughout] Blood Pressure 162/88 144/74 144/74 O2 Sat by Pulse 97 98 97 Oximetry 12/25/17 12/25/17 12/25/17 07:00 07:11 07:21 Temperature Pulse Rate 96 H 98 H 92 H Pulse Rate [ Anterior Bilateral Throughout] Pulse Rate [ From Monitor] Respiratory 26 H 26 H 25 H Rate Respiratory Rate [Anterior Bilateral Throughout] Blood Pressure 168/85 168/85 168/85 O2 Sat by Pulse 95 97 98 Oximetry 12/25/17 12/25/17 12/25/17 07:30 07:41 07:51 Temperature Pulse Rate 96 H 102 H 102 H Pulse Rate [ Anterior Bilateral Throughout] Pulse Rate [ From Monitor] Respiratory 26 H 26 H 25 H Rate Respiratory Rate [Anterior Bilateral Throughout] Blood Pressure 168/83 168/83 168/83 O2 Sat by Pulse 97 100 99 Oximetry 12/25/17 12/25/17 12/25/17 08:00 08:05 08:11 Temperature 100.2 F H Pulse Rate 99 H 96 H Pulse Rate [ Anterior Bilateral Throughout] Pulse Rate [ 99 H From Monitor] Respiratory 29 H 29 H 16 Rate Respiratory Rate [Anterior Bilateral Throughout] Blood Pressure 161/84 168/83 O2 Sat by Pulse 97 97 98 Oximetry 12/25/17 12/25/17 12/25/17 08:21 08:30 08:35 Temperature Pulse Rate 95 H 93 H 89 Pulse Rate [ Anterior Bilateral Throughout] Pulse Rate [ From Monitor] Respiratory 17 29 H Rate Respiratory Rate [Anterior Bilateral Throughout] Blood Pressure 168/83 155/83 155/83 O2 Sat by Pulse 99 95 99 Oximetry 03/28/18 03/28/18 03/28/18 08:41 08:50 09:00 Temperature Pulse Rate 93 H 88 92 H Pulse Rate [ Anterior Bilateral Throughout] Pulse Rate [ From Monitor] Respiratory 23 21 18 Rate Respiratory Rate [Anterior Bilateral Throughout] Blood Pressure 161/84 161/84 155/83 O2 Sat by Pulse 97 98 100 Oximetry 12/25/17 12/25/17 12/25/17 09:11 09:21 09:30 Temperature Pulse Rate 94 H 88 86 Pulse Rate [ Anterior Bilateral Throughout] Pulse Rate [ From Monitor] Respiratory 12 20 26 H Rate Respiratory Rate [Anterior Bilateral Throughout] Blood Pressure 155/83 155/83 155/80 O2 Sat by Pulse 100 100 95 Oximetry 12/25/17 12/25/17 12/25/17 09:41 09:51 10:00 Temperature Pulse Rate 93 H 89 87 Pulse Rate [ Anterior Bilateral Throughout] Pulse Rate [ 87 From Monitor] Respiratory 28 H 19 26 H Rate Respiratory Rate [Anterior Bilateral Throughout] Blood Pressure 155/80 155/80 147/82 O2 Sat by Pulse 97 97 94 Oximetry 12/25/17 12/25/17 12/25/17 10:11 10:21 10:30 Temperature Pulse Rate 86 85 84 Pulse Rate [ Anterior Bilateral Throughout] Pulse Rate [ From Monitor] Respiratory 25 H 13 24 Rate Respiratory Rate [Anterior Bilateral Throughout] Blood Pressure 155/80 155/80 150/83 O2 Sat by Pulse 98 100 99 Oximetry 12/25/17 12/25/17 12/25/17 10:41 10:51 11:00 Temperature Pulse Rate 85 85 85 Pulse Rate [ Anterior Bilateral Throughout] Pulse Rate [ From Monitor] Respiratory 26 H 25 H 26 H Rate Respiratory Rate [Anterior Bilateral Throughout] Blood Pressure 150/83 150/83 141/83 O2 Sat by Pulse 99 99 99 Oximetry 12/25/17 12/25/17 12/25/17 11:11 11:21 11:30 Temperature Pulse Rate 81 81 81 Pulse Rate [ Anterior Bilateral Throughout] Pulse Rate [ From Monitor] Respiratory 21 24 24 Rate Respiratory Rate [Anterior Bilateral Throughout] Blood Pressure 141/83 141/83 130/76 O2 Sat by Pulse 100 100 97 Oximetry 12/25/17 12/25/17 12/25/17 11:41 11:51 12:00 Temperature 99.6 F Pulse Rate 81 81 Pulse Rate [ Anterior Bilateral Throughout] Pulse Rate [ 80 From Monitor] Respiratory 23 25 H 24 Rate Respiratory Rate [Anterior Bilateral Throughout] Blood Pressure 130/76 130/76 O2 Sat by Pulse 98 98 96 Oximetry 12/25/17 12/25/17 12:01 12:50 Temperature Pulse Rate 80 79 Pulse Rate [ Anterior Bilateral Throughout] Pulse Rate [ From Monitor] Respiratory 24 24 Rate Respiratory Rate [Anterior Bilateral Throughout] Blood Pressure 119/65 109/60 O2 Sat by Pulse 96 99 Oximetry Constitutional: other (intubated, sedated) Eyes: non-icteric ENT: oropharynx moist Neck: supple Effort: normal Ascultation: Right: rales, Bilateral: diminished breath sounds, other (coarse BS bilaterally) Cardiovascular: regular rate and rhythm, other (tachycardic) Gastrointestinal: normoactive bowel sounds, soft, non-tender, non-distended, other (obese) Integumentary: normal Extremities: no cyanosis, no edema, pink and warm Neurologic: unable to assess (due to sedation) Psychiatric: other (not able to assess) CBC and BMP: 12/25/17 Unknown 12/25/17 Unknown ABG, PT/INR, D-dimer: ABG POC ABG pH 7.503 (7.35-7.45) H 12/25/17 03:38 POC ABG pCO2 35.8 (35-45) 12/25/17 03:38 POC ABG pO2 66 (80-105) L 12/25/17 03:38 POC ABG HCO3 28.1 12/25/17 03:38 POC ABG Total CO2 29 12/25/17 03:38 POC ABG O2 Sat 95 12/25/17 03:38 PT/INR, D-dimer PT 14.9 Sec. (12.2-14.9) 12/15/17 04:05 INR 1.11 (0.87-1.13) 12/15/17 04:05 Abnormal lab findings: Abnormal Labs 12/12/17 12/12/17 12/12/17 18:57 19:02 19:02 WBC RBC Hgb Hct MCV 96 H MCH 34 H MCHC 35 H RDW Plt Count 46 L Seg Neuts % (Manual) 77.0 H Lymphocytes % (Manual) 13.0 L Monocytes % (Manual) Nucleated RBC % Seg Neutrophils # Man Lymphocytes # (Manual) 0.9 L Monocytes # (Manual) APTT POC ABG pH POC ABG pCO2 POC ABG pO2 VBG pH Sodium Potassium Chloride Carbon Dioxide BUN Creatinine Glucose POC Glucose 321 H Lactic Acid 4.00 H* Calcium Total Bilirubin AST ALT C-Reactive Protein Albumin Triglycerides Amylase Lipase Urine WBC (Auto) 12/12/17 12/12/17 12/12/17 19:02 19:18 20:55 WBC RBC Hgb Hct MCV MCH MCHC RDW Plt Count Seg Neuts % (Manual) Lymphocytes % (Manual) Monocytes % (Manual) Nucleated RBC % Seg Neutrophils # Man Lymphocytes # (Manual) Monocytes # (Manual) APTT POC ABG pH POC ABG pCO2 POC ABG pO2 VBG pH 7.472 H Sodium 124 L Potassium Chloride 80.0 L Carbon Dioxide 20 L BUN Creatinine Glucose 382 H POC Glucose 283 H Lactic Acid Calcium 8.1 L Total Bilirubin 4.60 H AST 93 H ALT 112 H C-Reactive Protein Albumin 2.5 L Triglycerides Amylase Lipase Urine WBC (Auto) 12/12/17 12/13/17 12/13/17 21:41 00:45 01:29 WBC RBC Hgb Hct MCV MCH MCHC RDW Plt Count Seg Neuts % (Manual) Lymphocytes % (Manual) Monocytes % (Manual) Nucleated RBC % Seg Neutrophils # Man Lymphocytes # (Manual) Monocytes # (Manual) APTT POC ABG pH POC ABG pCO2 POC ABG pO2 VBG pH Sodium Potassium Chloride Carbon Dioxide BUN Creatinine Glucose POC Glucose Lactic Acid 4.20 H* 2.70 H* 3.30 H* Calcium Total Bilirubin AST ALT C-Reactive Protein Albumin Triglycerides Amylase Lipase Urine WBC (Auto) 12/13/17 12/13/17 12/13/17 02:19 03:44 05:58 WBC RBC Hgb Hct MCV 97 H MCH 34 H MCHC 35 H RDW Plt Count 41 L Seg Neuts % (Manual) Lymphocytes % (Manual) 8.0 L Monocytes % (Manual) 8.0 H Nucleated RBC % Seg Neutrophils # Man Lymphocytes # (Manual) 0.6 L Monocytes # (Manual) APTT POC ABG pH 7.334 L POC ABG pCO2 POC ABG pO2 43 L VBG pH Sodium Potassium Chloride Carbon Dioxide BUN Creatinine Glucose POC Glucose Lactic Acid 2.60 H* Calcium Total Bilirubin AST ALT C-Reactive Protein Albumin Triglycerides Amylase Lipase Urine WBC (Auto) 12/13/17 12/13/17 12/13/17 05:58 05:58 05:58 WBC RBC Hgb Hct MCV MCH MCHC RDW Plt Count Seg Neuts % (Manual) Lymphocytes % (Manual) Monocytes % (Manual) Nucleated RBC % Seg Neutrophils # Man Lymphocytes # (Manual) Monocytes # (Manual) APTT POC ABG pH POC ABG pCO2 POC ABG pO2 VBG pH Sodium 132 L D Potassium Chloride 90.0 L Carbon Dioxide 20 L BUN Creatinine Glucose 346 H POC Glucose 298 H Lactic Acid 4.50 H* Calcium 8.2 L Total Bilirubin AST ALT C-Reactive Protein Albumin Triglycerides Amylase Lipase Urine WBC (Auto) 12/13/17 12/13/17 12/13/17 06:27 09:42 11:47 WBC RBC Hgb Hct MCV MCH MCHC RDW Plt Count Seg Neuts % (Manual) Lymphocytes % (Manual) Monocytes % (Manual) Nucleated RBC % Seg Neutrophils # Man Lymphocytes # (Manual) Monocytes # (Manual) APTT POC ABG pH 7.267 L 7.298 L POC ABG pCO2 50.4 H 51.3 H POC ABG pO2 47 L 43 L VBG pH Sodium Potassium Chloride Carbon Dioxide BUN Creatinine Glucose POC Glucose 376 H Lactic Acid Calcium Total Bilirubin AST ALT C-Reactive Protein Albumin Triglycerides Amylase Lipase Urine WBC (Auto) 12/13/17 12/13/17 12/13/17 12:03 13:47 13:47 WBC RBC Hgb Hct MCV MCH MCHC RDW Plt Count Seg Neuts % (Manual) Lymphocytes % (Manual) Monocytes % (Manual) Nucleated RBC % Seg Neutrophils # Man Lymphocytes # (Manual) Monocytes # (Manual) APTT POC ABG pH 7.264 L POC ABG pCO2 54.9 H POC ABG pO2 55 L VBG pH Sodium Potassium Chloride Carbon Dioxide BUN Creatinine Glucose POC Glucose Lactic Acid 2.80 H* Calcium Total Bilirubin AST ALT C-Reactive Protein Albumin Triglycerides Amylase 20 L Lipase 9 L Urine WBC (Auto) 12/13/17 12/13/17 12/13/17 15:36 17:39 21:47 WBC RBC Hgb Hct MCV MCH MCHC RDW Plt Count Seg Neuts % (Manual) Lymphocytes % (Manual) Monocytes % (Manual) Nucleated RBC % Seg Neutrophils # Man Lymphocytes # (Manual) Monocytes # (Manual) APTT POC ABG pH 7.229 L 7.225 L POC ABG pCO2 60.9 H 66.3 H POC ABG pO2 42 L 41 L VBG pH Sodium Potassium Chloride Carbon Dioxide BUN Creatinine Glucose POC Glucose 289 H Lactic Acid Calcium Total Bilirubin AST ALT C-Reactive Protein Albumin Triglycerides Amylase Lipase Urine WBC (Auto) 12/13/17 12/14/17 12/14/17 22:19 02:03 05:16 WBC RBC Hgb Hct MCV MCH MCHC RDW Plt Count Seg Neuts % (Manual) Lymphocytes % (Manual) Monocytes % (Manual) Nucleated RBC % Seg Neutrophils # Man Lymphocytes # (Manual) Monocytes # (Manual) APTT POC ABG pH 7.247 L POC ABG pCO2 61.2 H POC ABG pO2 53 L VBG pH Sodium Potassium Chloride Carbon Dioxide BUN Creatinine Glucose POC Glucose 274 H 295 H Lactic Acid Calcium Total Bilirubin AST ALT C-Reactive Protein Albumin Triglycerides Amylase Lipase Urine WBC (Auto) 12/14/17 12/14/17 12/14/17 05:32 12:04 16:22 WBC RBC Hgb Hct MCV MCH MCHC RDW Plt Count Seg Neuts % (Manual) Lymphocytes % (Manual) Monocytes % (Manual) Nucleated RBC % Seg Neutrophils # Man Lymphocytes # (Manual) Monocytes # (Manual) APTT POC ABG pH POC ABG pCO2 POC ABG pO2 VBG pH Sodium Potassium Chloride Carbon Dioxide BUN Creatinine Glucose POC Glucose 230 H 241 H 231 H Lactic Acid Calcium Total Bilirubin AST ALT C-Reactive Protein Albumin Triglycerides Amylase Lipase Urine WBC (Auto) 12/14/17 12/15/17 12/15/17 21:29 02:29 03:25 WBC RBC Hgb Hct MCV MCH MCHC RDW Plt Count Seg Neuts % (Manual) Lymphocytes % (Manual) Monocytes % (Manual) Nucleated RBC % Seg Neutrophils # Man Lymphocytes # (Manual) Monocytes # (Manual) APTT POC ABG pH 7.330 L POC ABG pCO2 55.3 H POC ABG pO2 59 L VBG pH Sodium Potassium Chloride Carbon Dioxide BUN Creatinine Glucose POC Glucose 258 H 246 H Lactic Acid Calcium Total Bilirubin AST ALT C-Reactive Protein Albumin Triglycerides Amylase Lipase Urine WBC (Auto) 12/15/17 12/15/17 12/15/17 04:05 04:05 04:05 WBC 15.0 H RBC 3.40 L Hgb 11.3 L D Hct 33.8 L D MCV 100 H MCH 33 H MCHC RDW Plt Count 48 L Seg Neuts % (Manual) Lymphocytes % (Manual) 3.0 L Monocytes % (Manual) Nucleated RBC % 2.0 H Seg Neutrophils # Man Lymphocytes # (Manual) 0.5 L Monocytes # (Manual) 0.9 H APTT 20.9 L POC ABG pH POC ABG pCO2 POC ABG pO2 VBG pH Sodium Potassium Chloride Carbon Dioxide BUN 27 H Creatinine Glucose 258 H POC Glucose Lactic Acid Calcium 8.1 L Total Bilirubin AST ALT C-Reactive Protein Albumin Triglycerides Amylase Lipase Urine WBC (Auto) 12/15/17 12/15/17 12/15/17 05:32 11:17 14:59 WBC RBC Hgb Hct MCV MCH MCHC RDW Plt Count Seg Neuts % (Manual) Lymphocytes % (Manual) Monocytes % (Manual) Nucleated RBC % Seg Neutrophils # Man Lymphocytes # (Manual) Monocytes # (Manual) APTT POC ABG pH POC ABG pCO2 POC ABG pO2 VBG pH Sodium Potassium Chloride Carbon Dioxide BUN Creatinine Glucose POC Glucose 247 H 268 H 233 H Lactic Acid Calcium Total Bilirubin AST ALT C-Reactive Protein Albumin Triglycerides Amylase Lipase Urine WBC (Auto) 12/15/17 12/15/17 12/15/17 17:00 18:59 21:37 WBC RBC Hgb Hct MCV MCH MCHC RDW Plt Count Seg Neuts % (Manual) Lymphocytes % (Manual) Monocytes % (Manual) Nucleated RBC % Seg Neutrophils # Man Lymphocytes # (Manual) Monocytes # (Manual) APTT POC ABG pH POC ABG pCO2 POC ABG pO2 VBG pH Sodium Potassium Chloride Carbon Dioxide BUN Creatinine Glucose POC Glucose 195 H 208 H Lactic Acid Calcium Total Bilirubin AST ALT C-Reactive Protein Albumin Triglycerides Amylase Lipase Urine WBC (Auto) 38.0 H 12/16/17 12/16/17 12/16/17 03:17 03:33 04:18 WBC 16.4 H RBC 3.50 L Hgb 11.3 L Hct 35.4 L MCV 101 H MCH MCHC RDW Plt Count 54 L Seg Neuts % (Manual) Lymphocytes % (Manual) Monocytes % (Manual) Nucleated RBC % Seg Neutrophils # Man Lymphocytes # (Manual) Monocytes # (Manual) APTT POC ABG pH POC ABG pCO2 47.7 H POC ABG pO2 VBG pH Sodium Potassium Chloride Carbon Dioxide BUN Creatinine Glucose POC Glucose 227 H Lactic Acid Calcium Total Bilirubin AST ALT C-Reactive Protein Albumin Triglycerides Amylase Lipase Urine WBC (Auto) 12/16/17 12/16/17 12/16/17 04:18 05:08 10:01 WBC RBC Hgb Hct MCV MCH MCHC RDW Plt Count Seg Neuts % (Manual) Lymphocytes % (Manual) Monocytes % (Manual) Nucleated RBC % Seg Neutrophils # Man Lymphocytes # (Manual) Monocytes # (Manual) APTT POC ABG pH POC ABG pCO2 POC ABG pO2 VBG pH Sodium 147 H Potassium Chloride 107.4 H Carbon Dioxide BUN 28 H Creatinine Glucose 240 H POC Glucose 227 H 190 H Lactic Acid Calcium 8.3 L Total Bilirubin AST ALT C-Reactive Protein Albumin Triglycerides Amylase Lipase Urine WBC (Auto) 12/16/17 12/16/17 12/16/17 14:15 17:51 21:14 WBC RBC Hgb Hct MCV MCH MCHC RDW Plt Count Seg Neuts % (Manual) Lymphocytes % (Manual) Monocytes % (Manual) Nucleated RBC % Seg Neutrophils # Man Lymphocytes # (Manual) Monocytes # (Manual) APTT POC ABG pH POC ABG pCO2 POC ABG pO2 VBG pH Sodium Potassium Chloride Carbon Dioxide BUN Creatinine Glucose POC Glucose 279 H 272 H 260 H Lactic Acid Calcium Total Bilirubin AST ALT C-Reactive Protein Albumin Triglycerides Amylase Lipase Urine WBC (Auto) 12/17/17 12/17/17 12/17/17 02:41 04:28 04:28 WBC 19.1 H RBC 3.50 L Hgb 11.4 L Hct 35.3 L MCV 101 H MCH 33 H MCHC RDW Plt Count 65 L Seg Neuts % (Manual) Lymphocytes % (Manual) Monocytes % (Manual) Nucleated RBC % Seg Neutrophils # Man Lymphocytes # (Manual) Monocytes # (Manual) APTT POC ABG pH POC ABG pCO2 POC ABG pO2 VBG pH Sodium 153 H Potassium Chloride 111.2 H Carbon Dioxide 31 H BUN 28 H Creatinine Glucose 248 H POC Glucose 300 H Lactic Acid Calcium Total Bilirubin AST ALT C-Reactive Protein Albumin Triglycerides Amylase Lipase Urine WBC (Auto) 12/17/17 12/17/17 12/17/17 05:15 05:38 10:16 WBC RBC Hgb Hct MCV MCH MCHC RDW Plt Count Seg Neuts % (Manual) Lymphocytes % (Manual) Monocytes % (Manual) Nucleated RBC % Seg Neutrophils # Man Lymphocytes # (Manual) Monocytes # (Manual) APTT POC ABG pH POC ABG pCO2 50.3 H POC ABG pO2 120 H VBG pH Sodium Potassium Chloride Carbon Dioxide BUN Creatinine Glucose POC Glucose 231 H 196 H Lactic Acid Calcium Total Bilirubin AST ALT C-Reactive Protein Albumin Triglycerides Amylase Lipase Urine WBC (Auto) 12/17/17 12/17/17 12/17/17 14:22 18:14 21:35 WBC RBC Hgb Hct MCV MCH MCHC RDW Plt Count Seg Neuts % (Manual) Lymphocytes % (Manual) Monocytes % (Manual) Nucleated RBC % Seg Neutrophils # Man Lymphocytes # (Manual) Monocytes # (Manual) APTT POC ABG pH POC ABG pCO2 POC ABG pO2 VBG pH Sodium Potassium Chloride Carbon Dioxide BUN Creatinine Glucose POC Glucose 234 H 215 H 159 H Lactic Acid Calcium Total Bilirubin AST ALT C-Reactive Protein Albumin Triglycerides Amylase Lipase Urine WBC (Auto) 12/18/17 12/18/17 12/18/17 00:53 02:58 06:03 WBC RBC Hgb Hct MCV MCH MCHC RDW Plt Count Seg Neuts % (Manual) Lymphocytes % (Manual) Monocytes % (Manual) Nucleated RBC % Seg Neutrophils # Man Lymphocytes # (Manual) Monocytes # (Manual) APTT POC ABG pH POC ABG pCO2 56.4 H POC ABG pO2 46 L VBG pH Sodium Potassium Chloride Carbon Dioxide BUN Creatinine Glucose POC Glucose 176 H 143 H Lactic Acid Calcium Total Bilirubin AST ALT C-Reactive Protein Albumin Triglycerides Amylase Lipase Urine WBC (Auto) 12/18/17 12/18/17 12/18/17 07:59 09:20 09:20 WBC 27.4 H RBC 3.57 L Hgb 11.4 L Hct MCV 101 H MCH MCHC RDW Plt Count 64 L Seg Neuts % (Manual) Lymphocytes % (Manual) Monocytes % (Manual) Nucleated RBC % Seg Neutrophils # Man Lymphocytes # (Manual) Monocytes # (Manual) APTT POC ABG pH POC ABG pCO2 POC ABG pO2 VBG pH Sodium 152 H Potassium Chloride 107.9 H Carbon Dioxide 34 H BUN 23 H Creatinine 0.7 L Glucose 181 H POC Glucose 197 H Lactic Acid Calcium Total Bilirubin AST ALT C-Reactive Protein Albumin Triglycerides Amylase Lipase Urine WBC (Auto) 12/18/17 12/18/17 12/18/17 10:22 15:03 18:15 WBC RBC Hgb Hct MCV MCH MCHC RDW Plt Count Seg Neuts % (Manual) Lymphocytes % (Manual) Monocytes % (Manual) Nucleated RBC % Seg Neutrophils # Man Lymphocytes # (Manual) Monocytes # (Manual) APTT POC ABG pH POC ABG pCO2 POC ABG pO2 VBG pH Sodium Potassium Chloride Carbon Dioxide BUN Creatinine Glucose POC Glucose 195 H 225 H 238 H Lactic Acid Calcium Total Bilirubin AST ALT C-Reactive Protein Albumin Triglycerides Amylase Lipase Urine WBC (Auto) 12/18/17 12/18/17 12/19/17 18:29 21:53 00:18 WBC RBC Hgb Hct MCV MCH MCHC RDW Plt Count Seg Neuts % (Manual) Lymphocytes % (Manual) Monocytes % (Manual) Nucleated RBC % Seg Neutrophils # Man Lymphocytes # (Manual) Monocytes # (Manual) APTT POC ABG pH 7.476 H POC ABG pCO2 50.4 H POC ABG pO2 158 H VBG pH Sodium Potassium Chloride Carbon Dioxide BUN Creatinine Glucose POC Glucose 231 H 263 H Lactic Acid Calcium Total Bilirubin AST ALT C-Reactive Protein Albumin Triglycerides Amylase Lipase Urine WBC (Auto) 12/19/17 12/19/17 12/19/17 02:09 04:07 04:07 WBC 25.9 H RBC 3.25 L Hgb 10.6 L Hct 32.8 L MCV 101 H MCH 33 H MCHC RDW Plt Count 67 L Seg Neuts % (Manual) Lymphocytes % (Manual) 4.0 L Monocytes % (Manual) Nucleated RBC % Seg Neutrophils # Man 14.8 H Lymphocytes # (Manual) 1.0 L Monocytes # (Manual) APTT POC ABG pH POC ABG pCO2 POC ABG pO2 VBG pH Sodium 148 H Potassium Chloride Carbon Dioxide BUN 31 H Creatinine Glucose 314 H POC Glucose 300 H Lactic Acid Calcium 8.1 L Total Bilirubin AST ALT C-Reactive Protein Albumin Triglycerides Amylase Lipase Urine WBC (Auto) 12/19/17 12/19/17 12/19/17 05:15 05:41 07:57 WBC RBC Hgb Hct MCV MCH MCHC RDW Plt Count Seg Neuts % (Manual) Lymphocytes % (Manual) Monocytes % (Manual) Nucleated RBC % Seg Neutrophils # Man Lymphocytes # (Manual) Monocytes # (Manual) APTT POC ABG pH 7.507 H POC ABG pCO2 POC ABG pO2 VBG pH Sodium Potassium Chloride Carbon Dioxide BUN Creatinine Glucose POC Glucose 331 H 307 H Lactic Acid Calcium Total Bilirubin AST ALT C-Reactive Protein Albumin Triglycerides Amylase Lipase Urine WBC (Auto) 12/19/17 12/19/17 12/19/17 10:21 14:48 17:59 WBC RBC Hgb Hct MCV MCH MCHC RDW Plt Count Seg Neuts % (Manual) Lymphocytes % (Manual) Monocytes % (Manual) Nucleated RBC % Seg Neutrophils # Man Lymphocytes # (Manual) Monocytes # (Manual) APTT POC ABG pH POC ABG pCO2 POC ABG pO2 VBG pH Sodium Potassium Chloride Carbon Dioxide BUN Creatinine Glucose POC Glucose 358 H 327 H 355 H Lactic Acid Calcium Total Bilirubin AST ALT C-Reactive Protein Albumin Triglycerides Amylase Lipase Urine WBC (Auto) 12/19/17 12/20/17 12/20/17 21:38 02:21 03:42 WBC RBC Hgb Hct MCV MCH MCHC RDW Plt Count Seg Neuts % (Manual) Lymphocytes % (Manual) Monocytes % (Manual) Nucleated RBC % Seg Neutrophils # Man Lymphocytes # (Manual) Monocytes # (Manual) APTT POC ABG pH 7.494 H POC ABG pCO2 POC ABG pO2 VBG pH Sodium Potassium Chloride Carbon Dioxide BUN Creatinine Glucose POC Glucose 329 H 354 H Lactic Acid Calcium Total Bilirubin AST ALT C-Reactive Protein Albumin Triglycerides Amylase Lipase Urine WBC (Auto) 12/20/17 12/20/17 12/20/17 04:08 04:08 04:08 WBC 22.7 H RBC 3.26 L Hgb 10.6 L Hct 32.9 L MCV 101 H MCH 33 H MCHC RDW Plt Count 78 L Seg Neuts % (Manual) 80.0 H Lymphocytes % (Manual) 6.0 L Monocytes % (Manual) Nucleated RBC % Seg Neutrophils # Man 18.2 H Lymphocytes # (Manual) Monocytes # (Manual) APTT POC ABG pH POC ABG pCO2 POC ABG pO2 VBG pH Sodium Potassium Chloride Carbon Dioxide 31 H BUN 30 H Creatinine 0.6 L Glucose 365 H POC Glucose Lactic Acid Calcium Total Bilirubin AST ALT C-Reactive Protein Albumin Triglycerides 981 H Amylase Lipase Urine WBC (Auto) 12/20/17 12/20/17 12/20/17 05:15 10:47 13:40 WBC RBC Hgb Hct MCV MCH MCHC RDW Plt Count Seg Neuts % (Manual) Lymphocytes % (Manual) Monocytes % (Manual) Nucleated RBC % Seg Neutrophils # Man Lymphocytes # (Manual) Monocytes # (Manual) APTT POC ABG pH POC ABG pCO2 POC ABG pO2 VBG pH Sodium Potassium Chloride Carbon Dioxide BUN Creatinine Glucose POC Glucose 342 H 330 H Lactic Acid Calcium Total Bilirubin AST ALT C-Reactive Protein 7.10 H Albumin Triglycerides Amylase Lipase Urine WBC (Auto) 12/20/17 12/20/17 12/20/17 13:40 14:52 16:55 WBC RBC Hgb Hct MCV MCH MCHC RDW Plt Count Seg Neuts % (Manual) Lymphocytes % (Manual) Monocytes % (Manual) Nucleated RBC % Seg Neutrophils # Man Lymphocytes # (Manual) Monocytes # (Manual) APTT POC ABG pH 7.484 H POC ABG pCO2 POC ABG pO2 VBG pH Sodium Potassium Chloride Carbon Dioxide BUN Creatinine Glucose POC Glucose 293 H Lactic Acid Calcium Total Bilirubin AST ALT C-Reactive Protein Albumin Triglycerides 1042 H Amylase Lipase Urine WBC (Auto) 12/20/17 12/20/17 12/21/17 18:00 21:58 02:05 WBC RBC Hgb Hct MCV MCH MCHC RDW Plt Count Seg Neuts % (Manual) Lymphocytes % (Manual) Monocytes % (Manual) Nucleated RBC % Seg Neutrophils # Man Lymphocytes # (Manual) Monocytes # (Manual) APTT POC ABG pH POC ABG pCO2 POC ABG pO2 VBG pH Sodium Potassium Chloride Carbon Dioxide BUN Creatinine Glucose POC Glucose 268 H 272 H 229 H Lactic Acid Calcium Total Bilirubin AST ALT C-Reactive Protein Albumin Triglycerides Amylase Lipase Urine WBC (Auto) 12/21/17 12/21/17 12/21/17 03:59 06:23 08:57 WBC RBC Hgb Hct MCV MCH MCHC RDW Plt Count Seg Neuts % (Manual) Lymphocytes % (Manual) Monocytes % (Manual) Nucleated RBC % Seg Neutrophils # Man Lymphocytes # (Manual) Monocytes # (Manual) APTT POC ABG pH 7.474 H POC ABG pCO2 POC ABG pO2 71 L VBG pH Sodium Potassium Chloride Carbon Dioxide BUN Creatinine Glucose POC Glucose 182 H 217 H Lactic Acid Calcium Total Bilirubin AST ALT C-Reactive Protein Albumin Triglycerides Amylase Lipase Urine WBC (Auto) 12/21/17 12/21/17 12/21/17 13:59 18:00 21:20 WBC RBC Hgb Hct MCV MCH MCHC RDW Plt Count Seg Neuts % (Manual) Lymphocytes % (Manual) Monocytes % (Manual) Nucleated RBC % Seg Neutrophils # Man Lymphocytes # (Manual) Monocytes # (Manual) APTT POC ABG pH POC ABG pCO2 POC ABG pO2 VBG pH Sodium Potassium Chloride Carbon Dioxide BUN Creatinine Glucose POC Glucose 185 H 176 H 187 H Lactic Acid Calcium Total Bilirubin AST ALT C-Reactive Protein Albumin Triglycerides Amylase Lipase Urine WBC (Auto) 12/21/17 12/22/17 12/22/17 23:48 04:39 05:30 WBC RBC Hgb Hct MCV MCH MCHC RDW Plt Count Seg Neuts % (Manual) Lymphocytes % (Manual) Monocytes % (Manual) Nucleated RBC % Seg Neutrophils # Man Lymphocytes # (Manual) Monocytes # (Manual) APTT POC ABG pH 7.528 H POC ABG pCO2 POC ABG pO2 63 L VBG pH Sodium Potassium Chloride Carbon Dioxide BUN Creatinine Glucose POC Glucose 126 H 117 H Lactic Acid Calcium Total Bilirubin AST ALT C-Reactive Protein Albumin Triglycerides Amylase Lipase Urine WBC (Auto) 12/22/17 12/22/17 12/22/17 09:12 10:34 10:34 WBC 29.5 H RBC 3.44 L Hgb 11.2 L Hct 34.2 L MCV 99 H MCH 33 H MCHC RDW 13.1 L Plt Count 97 L Seg Neuts % (Manual) 88.0 H Lymphocytes % (Manual) 5.0 L Monocytes % (Manual) Nucleated RBC % Seg Neutrophils # Man 26.0 H Lymphocytes # (Manual) Monocytes # (Manual) APTT POC ABG pH POC ABG pCO2 POC ABG pO2 VBG pH Sodium 146 H Potassium 3.1 L Chloride Carbon Dioxide BUN 25 H Creatinine 0.7 L Glucose 146 H POC Glucose 168 H Lactic Acid Calcium 8.1 L Total Bilirubin AST ALT C-Reactive Protein Albumin Triglycerides Amylase Lipase Urine WBC (Auto) 12/22/17 12/22/17 12/22/17 14:51 17:21 21:43 WBC RBC Hgb Hct MCV MCH MCHC RDW Plt Count Seg Neuts % (Manual) Lymphocytes % (Manual) Monocytes % (Manual) Nucleated RBC % Seg Neutrophils # Man Lymphocytes # (Manual) Monocytes # (Manual) APTT POC ABG pH POC ABG pCO2 POC ABG pO2 VBG pH Sodium Potassium Chloride Carbon Dioxide BUN Creatinine Glucose POC Glucose 125 H 110 H 153 H Lactic Acid Calcium Total Bilirubin AST ALT C-Reactive Protein Albumin Triglycerides Amylase Lipase Urine WBC (Auto) 12/23/17 12/23/17 12/23/17 04:33 05:28 09:25 WBC 31.4 H RBC 3.05 L Hgb 9.8 L Hct 30.2 L MCV 99 H MCH MCHC RDW 12.9 L Plt Count 101 L Seg Neuts % (Manual) 97 H Lymphocytes % (Manual) 2 L Monocytes % (Manual) Nucleated RBC % Seg Neutrophils # Man 31.1 H Lymphocytes # (Manual) 0.5 L Monocytes # (Manual) APTT POC ABG pH 7.573 H POC ABG pCO2 31.0 L POC ABG pO2 63 L VBG pH Sodium Potassium Chloride Carbon Dioxide BUN Creatinine Glucose POC Glucose 124 H Lactic Acid Calcium Total Bilirubin AST ALT C-Reactive Protein Albumin Triglycerides Amylase Lipase Urine WBC (Auto) 12/23/17 12/23/17 12/23/17 09:25 10:08 14:20 WBC RBC Hgb Hct MCV MCH MCHC RDW Plt Count Seg Neuts % (Manual) Lymphocytes % (Manual) Monocytes % (Manual) Nucleated RBC % Seg Neutrophils # Man Lymphocytes # (Manual) Monocytes # (Manual) APTT POC ABG pH POC ABG pCO2 POC ABG pO2 VBG pH Sodium Potassium 3.1 L Chloride Carbon Dioxide BUN Creatinine 0.6 L Glucose 169 H POC Glucose 171 H 211 H Lactic Acid Calcium 7.9 L Total Bilirubin AST ALT C-Reactive Protein Albumin Triglycerides Amylase Lipase Urine WBC (Auto) 12/23/17 12/23/17 12/24/17 18:59 21:49 01:47 WBC RBC Hgb Hct MCV MCH MCHC RDW Plt Count Seg Neuts % (Manual) Lymphocytes % (Manual) Monocytes % (Manual) Nucleated RBC % Seg Neutrophils # Man Lymphocytes # (Manual) Monocytes # (Manual) APTT POC ABG pH POC ABG pCO2 POC ABG pO2 VBG pH Sodium Potassium Chloride Carbon Dioxide BUN Creatinine Glucose POC Glucose 175 H 146 H 143 H Lactic Acid Calcium Total Bilirubin AST ALT C-Reactive Protein Albumin Triglycerides Amylase Lipase Urine WBC (Auto) 12/24/17 12/24/17 12/24/17 05:40 10:12 13:12 WBC RBC Hgb Hct MCV MCH MCHC RDW Plt Count Seg Neuts % (Manual) Lymphocytes % (Manual) Monocytes % (Manual) Nucleated RBC % Seg Neutrophils # Man Lymphocytes # (Manual) Monocytes # (Manual) APTT POC ABG pH 7.558 H POC ABG pCO2 27.6 L POC ABG pO2 71 L VBG pH Sodium Potassium Chloride Carbon Dioxide BUN Creatinine Glucose POC Glucose 118 H 111 H Lactic Acid Calcium Total Bilirubin AST ALT C-Reactive Protein Albumin Triglycerides Amylase Lipase Urine WBC (Auto) 12/24/17 12/24/17 12/24/17 16:26 20:44 21:49 WBC RBC Hgb Hct MCV MCH MCHC RDW Plt Count Seg Neuts % (Manual) Lymphocytes % (Manual) Monocytes % (Manual) Nucleated RBC % Seg Neutrophils # Man Lymphocytes # (Manual) Monocytes # (Manual) APTT POC ABG pH POC ABG pCO2 POC ABG pO2 VBG pH Sodium Potassium Chloride Carbon Dioxide BUN Creatinine Glucose POC Glucose 113 H 124 H 115 H Lactic Acid Calcium Total Bilirubin AST ALT C-Reactive Protein Albumin Triglycerides Amylase Lipase Urine WBC (Auto) 12/25/17 12/25/17 12/25/17 02:26 03:38 04:58 WBC RBC Hgb Hct MCV MCH MCHC RDW Plt Count Seg Neuts % (Manual) Lymphocytes % (Manual) Monocytes % (Manual) Nucleated RBC % Seg Neutrophils # Man Lymphocytes # (Manual) Monocytes # (Manual) APTT POC ABG pH 7.503 H POC ABG pCO2 POC ABG pO2 66 L VBG pH Sodium Potassium Chloride Carbon Dioxide BUN Creatinine Glucose POC Glucose 106 H 113 H Lactic Acid Calcium Total Bilirubin AST ALT C-Reactive Protein Albumin Triglycerides Amylase Lipase Urine WBC (Auto) 12/25/17 12/25/17 Unknown Unknown WBC 20.5 H RBC 2.75 L Hgb 9.1 L Hct 27.1 L MCV 99 H MCH 33 H MCHC RDW Plt Count 126 L Seg Neuts % (Manual) 89.0 H Lymphocytes % (Manual) 6.0 L Monocytes % (Manual) Nucleated RBC % Seg Neutrophils # Man 18.2 H Lymphocytes # (Manual) Monocytes # (Manual) APTT POC ABG pH POC ABG pCO2 POC ABG pO2 VBG pH Sodium Potassium 2.8 L* Chloride Carbon Dioxide BUN Creatinine 0.6 L Glucose POC Glucose Lactic Acid Calcium 7.4 L Total Bilirubin AST ALT C-Reactive Protein Albumin Triglycerides Amylase Lipase Urine WBC (Auto)
--- NOTE | 2017-12-25 14:52 | Progress Note ---
Assessment and Plan Assessment and plan: --Severe hypokalemia; replenished per protocol and monitor levels Check magnesium --Acute hypoxic respiratory failure : Intubated on ventilatory support New nebulizers, venous tolerated and extubate, pulmonary following --Possible ARDS/aspiration pneumonia: Continue current antibiotics , ID following on iv cefepime/flagyl/vancomycin, ID stopped vancomycin And started on Zyvox --Sepsis with Aspiration pneumonia ?, poa: on IV antibiotics, repeat blood cx negative --Alcohol abuse: sedated, cont iv thiamine --Hypotension resolved with ivfs and iv steroids --Thrombocytopenia, improving closely monitor, no evidence of bleeding --Hypernatremia -corrected --Severe protein calorie malnutrition; nutrition supplements, to feeding and supportive care --DM type 2-continue Accu-Chek sliding scale coverage long-acting insulin, chilled feeding --DVT prophylaxis: scd only, no pharmacologic anticoagulation due to thrombocytopenia Closely monitor the patient and adjust the management as needed Plan of care is reviewed with the patient's nurse and case management Consults and recommendations noted and appreciated Critical care time 32 minutes The high probability of a clinically significant sudden or life-threatening deterioration of the [infectious, respiratory, hematologic] system(s) required my full and direct attention, intervention and personal management. The aggregate critical care time was [32 ] minutes. This time is in addition to the time spent performing reported procedures but including [ X] Data review and interpretation [ X] Patient assessment and monitoring of vital signs [ X ] Documentation [X] Medication orders and management History Interval history: Patient seen and examined in ICU this morning medical records reviewed Patient remains intubated on ventilatory support On weaning parameters No new events reported by the nursing staff Vital signs reviewed Hospitalist Physical - Constitutional Vitals: Temp Pulse Resp BP Pulse Ox 99.6 F 79 24 109/60 99 12/25/17 12:00 12/25/17 12:50 12/25/17 12:50 12/25/17 12:50 12/25/17 12:50 General appearance: Present: no acute distress, well-nourished, other ( intubated on vent) - EENT Eyes: Present: PERRL, EOM intact - Neck Neck: Present: supple, normal ROM - Respiratory Respiratory effort: normal Respiratory: bilateral: diminished, rhonchi, negative: rales, wheezing - Cardiovascular Rhythm: regular Heart Sounds: Present: S1 & S2 - Extremities Extremities: no ischemia, No edema - Abdominal General gastrointestinal: soft, non-tender, non-distended, normal bowel sounds - Integumentary Integumentary: Present: clear, warm - Psychiatric Psychiatric: other (noncommunicative) - Neurologic Neurologic: other (noncommunicative) Results - Labs CBC & Chem 7: 12/25/17 Unknown 12/25/17 Unknown Labs: Laboratory Last Values WBC 20.5 K/mm3 (4.5-11.0) H 12/25/17 Unknown RBC 2.75 M/mm3 (3.65-5.03) L 12/25/17 Unknown Hgb 9.1 gm/dl (11.8-15.2) L 12/25/17 Unknown Hct 27.1 % (35.5-45.6) L 12/25/17 Unknown MCV 99 fl (84-94) H 12/25/17 Unknown MCH 33 pg (28-32) H 12/25/17 Unknown MCHC 34 % (32-34) 12/25/17 Unknown RDW 13.4 % (13.2-15.2) 12/25/17 Unknown Plt Count 126 K/mm3 (140-440) L 12/25/17 Unknown Rhea % (Auto) Hydrotreater Operator 12/12/17 19:02 Add Manual Diff Complete 12/25/17 Unknown Total Counted 200 12/25/17 Unknown Seg Neutrophils % Hydrotreater Operator 12/23/17 09:25 Seg Neuts % (Manual) 89.0 % (40.0-70.0) H 12/25/17 Unknown Band Neutrophils % 1.5 % 12/25/17 Unknown Lymphocytes % (Manual) 6.0 % (13.4-35.0) L 12/25/17 Unknown Reactive Lymphs % (Man) 0 % 12/25/17 Unknown Monocytes % (Manual) 3.5 % (0.0-7.3) 12/25/17 Unknown Eosinophils % (Manual) 0 % (0.0-4.3) 12/25/17 Unknown Basophils % (Manual) 0 % (0.0-1.8) 12/25/17 Unknown Metamyelocytes % 0 % 12/25/17 Unknown Myelocytes % 0 % 12/25/17 Unknown Promyelocytes % 0 % 12/25/17 Unknown Blast Cells % 0 % 12/25/17 Unknown Nucleated RBC % Not Reportable 12/25/17 Unknown Seg Neutrophils # Man 18.2 K/mm3 (1.8-7.7) H 12/25/17 Unknown Band Neutrophils # 0.3 K/mm3 12/25/17 Unknown Lymphocytes # (Manual) 1.2 K/mm3 (1.2-5.4) 12/25/17 Unknown Abs React Lymphs (Man) 0.0 K/mm3 12/25/17 Unknown Monocytes # (Manual) 0.7 K/mm3 (0.0-0.8) 12/25/17 Unknown Eosinophils # (Manual) 0.0 K/mm3 (0.0-0.4) 12/25/17 Unknown Basophils # (Manual) 0.0 K/mm3 (0.0-0.1) 12/25/17 Unknown Metamyelocytes # 0.0 K/mm3 12/25/17 Unknown Myelocytes # 0.0 K/mm3 12/25/17 Unknown Promyelocytes # 0.0 K/mm3 12/25/17 Unknown Blast Cells # 0.0 K/mm3 12/25/17 Unknown Pathologist Review 12/23/17 09:25 WBC Morphology Not Reportable 12/25/17 Unknown Hypersegmented Neuts Not Reportable 12/25/17 Unknown Hyposegmented Neuts Not Reportable 12/25/17 Unknown Hypogranular Neuts Not Reportable 12/25/17 Unknown Smudge Cells Not Reportable 12/25/17 Unknown Toxic Granulation Not Reportable 12/25/17 Unknown Toxic Vacuolation Not Reportable 12/25/17 Unknown Dohle Bodies Not Reportable 12/25/17 Unknown Pelger-Huet Anomaly Not Reportable 12/25/17 Unknown Mary Rods Not Reportable 12/25/17 Unknown Platelet Estimate Consistent w auto 12/25/17 Unknown Clumped Platelets Not Reportable 12/25/17 Unknown Plt Clumps, EDTA Not Reportable 12/25/17 Unknown Large Platelets Not Reportable 12/25/17 Unknown Giant Platelets Not Reportable 12/25/17 Unknown Platelet Satelliting Not Reportable 12/25/17 Unknown Plt Morphology Comment Not Reportable 12/25/17 Unknown RBC Morphology Not Reportable 12/25/17 Unknown Dimorphic RBCs Not Reportable 12/25/17 Unknown Polychromasia Not Reportable 12/25/17 Unknown Hypochromasia Not Reportable 12/25/17 Unknown Poikilocytosis Not Reportable 12/25/17 Unknown Anisocytosis 1+ 12/25/17 Unknown Microcytosis Not Reportable 12/25/17 Unknown Macrocytosis Not Reportable 12/25/17 Unknown Spherocytes Not Reportable 12/25/17 Unknown Pappenheimer Bodies Not Reportable 12/25/17 Unknown Sickle Cells Not Reportable 12/25/17 Unknown Target Cells Not Reportable 12/25/17 Unknown Tear Drop Cells Not Reportable 12/25/17 Unknown Ovalocytes Not Reportable 12/25/17 Unknown Stomatocytes Few 12/20/17 04:08 Helmet Cells Not Reportable 12/25/17 Unknown [place] Bodies Not Reportable 12/25/17 Unknown [place] Rings Not Reportable 12/25/17 Unknown Chidi Cells Not Reportable 12/25/17 Unknown Bite Cells Not Reportable 12/25/17 Unknown Crenated Cell Not Reportable 12/25/17 Unknown Elliptocytes Not Reportable 12/25/17 Unknown Acanthocytes (Spur) Not Reportable 12/25/17 Unknown Rouleaux Not Reportable 12/25/17 Unknown Hemoglobin C Crystals Not Reportable 12/25/17 Unknown Schistocytes Not Reportable 12/25/17 Unknown Malaria parasites Not Reportable 12/25/17 Unknown Vipul Bodies Not Reportable 12/25/17 Unknown Hem Pathologist Commnt No 12/25/17 Unknown PT 14.9 Sec. (12.2-14.9) 12/15/17 04:05 INR 1.11 (0.87-1.13) 12/15/17 04:05 APTT 20.9 Sec. (24.2-36.6) L 12/15/17 04:05 POC ABG pH 7.503 (7.35-7.45) H 12/25/17 03:38 POC ABG pCO2 35.8 (35-45) 12/25/17 03:38 POC ABG pO2 66 (80-105) L 12/25/17 03:38 POC ABG HCO3 28.1 12/25/17 03:38 POC ABG Total CO2 29 12/25/17 03:38 POC ABG O2 Sat 95 12/25/17 03:38 POC ABG Base Excess 5 12/25/17 03:38 VBG pH 7.472 (7.320-7.420) H 12/12/17 19:18 FiO2 35 % 12/25/17 03:38 Sodium 139 mmol/L (137-145) 12/25/17 Unknown Potassium 2.8 mmol/L (3.6-5.0) L* 12/25/17 Unknown Chloride 103.3 mmol/L (98-107) 12/25/17 Unknown Carbon Dioxide 25 mmol/L (22-30) 12/25/17 Unknown Anion Gap 14 mmol/L 12/25/17 Unknown BUN 14 mg/dL (9-20) 12/25/17 Unknown Creatinine 0.6 mg/dL (0.8-1.5) L 12/25/17 Unknown Estimated GFR > 60 ml/min 12/25/17 Unknown BUN/Creatinine Ratio 23 % 12/25/17 Unknown Glucose 99 mg/dL (75-100) 12/25/17 Unknown POC Glucose 96 (70-105) 12/25/17 10:57 Lactic Acid 2.00 mmol/L (0.7-2.0) 12/13/17 19:38 Calcium 7.4 mg/dL (8.4-10.2) L 12/25/17 Unknown Magnesium 2.00 mg/dL (1.7-2.3) 12/25/17 Unknown Total Bilirubin 4.60 mg/dL (0.1-1.2) H 12/12/17 19:02 AST 93 units/L (5-40) H 12/12/17 19:02 ALT 112 units/L (7-56) H 12/12/17 19:02 Alkaline Phosphatase 80 units/L (35-129) 12/12/17 19:02 C-Reactive Protein 7.10 mg/dL (0.00-1.30) H 12/20/17 13:40 NT-Pro-B Natriuret Pep 409.9 pg/mL (0-450) 12/12/17 19:02 Total Protein 6.5 g/dL (6.3-8.2) 12/12/17 19:02 Albumin 2.5 g/dL (3.9-5) L 12/12/17 19:02 Albumin/Globulin Ratio 0.6 % 12/12/17 19:02 Triglycerides 1042 mg/dL (2-149) H 12/20/17 13:40 Amylase 20 units/L (27-131) L 12/13/17 13:47 Lipase 9 units/L (13-60) L 12/13/17 13:47 Urine Color Neeta (Yellow) 12/15/17 17:00 Urine Turbidity Hazy (Clear) 12/15/17 17:00 Urine pH 6.0 (5.0-7.0) 12/15/17 17:00 Ur Specific [place] 1.027 (1.003-1.030) 12/15/17 17:00 Urine Protein 30 mg/dl mg/dL (Negative) 12/15/17 17:00 Urine Glucose (UA) Neg mg/dL (Negative) 12/15/17 17:00 Urine Ketones Tr mg/dL (Negative) 12/15/17 17:00 Urine Blood Lg (Negative) 12/15/17 17:00 Urine Nitrite Neg (Negative) 12/15/17 17:00 Urine Bilirubin Neg (Negative) 12/15/17 17:00 Urine Ictotest Positive (Negative) 12/12/17 20:42 Urine Urobilinogen < 2.0 mg/dL (<2.0) 12/15/17 17:00 Ur Leukocyte Esterase Tr (Negative) 12/15/17 17:00 Urine WBC (Auto) 38.0 /HPF (0.0-6.0) H 12/15/17 17:00 Urine RBC (Auto) 65.0 /HPF (0.0-6.0) 12/15/17 17:00 U Epithel Cells (Auto) < 1.0 /HPF (0-13.0) 12/12/17 20:42 Urine Bacteria (Auto) 1+ /HPF (Negative) 12/15/17 17:00 Urine Mucus 1+ /HPF 12/12/17 20:42 Vancomycin Trough 22.5 ug/mL (5.0-20.0) H 12/25/17 12:58 JERMAIN Screen Negative (Negative) 12/18/17 16:44 Proteinase 3 (PR3) Ab <1.0 AI (<1.0) 12/18/17 16:33 Myeloperoxidase Ab <1.0 AI (<1.0) 12/18/17 16:33 Complement C3 113 mg/dL (82-185) 12/18/17 16:33 Complement C4 15 mg/dL (15-53) 12/18/17 16:33 Hepatitis A IgM Ab Non-reactive (NonReactive) 12/20/17 13:40 Hep Bs Antigen Non-reactive (Negative) 12/20/17 13:40 Hep B Core IgM Ab Non-reactive (NonReactive) 12/20/17 13:40 Hepatitis C Antibody Non-reactive (NonReactive) 12/20/17 13:40 HIV 1&2 Antibody Rapid Non react (Non React) 12/20/17 13:40 HIV P24 Antigen Non react (Non React) 12/20/17 13:40 Influenza A (Rapid) Negative (Negative) 12/12/17 22:00 Influenza B (Rapid) Negative (Negative) 12/12/17 22:00 Urine Legionella Ag Not detected (Not Detected) 12/14/17 16:15 Miscellaneous Test Flexitest 1 12/14/17 16:15
--- NOTE | 2017-12-25 15:22 | Progress Note ---
Assessment and Plan Assessment: 1) Severe Sepsis: still fever and leukocytosis. Etiology most likely complicated H influenza bacteremia +/- pneumonia +/- ? intrabdominal source+/- DTs?. Not better after 7 days of broad spectrum abx -blood cx negatige -US legs No DVT -Abd US negative 2) H influenza bacteremia: likely from pneumonia. TTE neg 3) Complicated Bilateral pneumonia: etiology H influenza - should r/o empyema or abscess -CXR showed kimberlee pneumonia -Sputum 12/20 showed usual resp angelika -HIV neg -JERMAIN and ANCA negative -C3/C4 normal -CRP=7.1 -Strep pneumoniae not detected -Legionella not detected -tracheal aspirate - usual resp angelika 4) Acute respiratory failure: intubated 5) Thrombocytopenia : from sepsis, better. 6) Elevated LFTs: from sepsis, ETOH. Viral hepatitis all negative. 7) DM: uncontrolled Plan: -repeat respiratory cultures -continue cefepime and flagyl - day 6 -stop vancomycin - day 9 -add zyvox for now -CT abd cannot be done - pt is not stable Thank you for your consultation, will follow up with you. Mariel Corrigan MD Infectious Diseases Specialist [facility], [place], [facility] ([facility]) M [phone] O [phone] Subjective Date of service: 12/25/17 Principal diagnosis: ARDS Interval history: Remains on the vent PRVC fiO2 35%, p10, anxious agitated, tmax 102.4. Microbiology: Blood cultures: 12/12 H influenza 1 of 4 bottles 12/15 neg 12/17 neg 12/23 ngtd Respiratory cultures: 12/13 - usual resp angelika 12/20 tracheal asp - usual resp angelika Current Antimicrobials: vanco 12/17 cefepime 12/20 flagyl 12/20 Previous Antimicrobials: Zosyn Levaquin 12/13 Clindamycin 12/17 Objective - Constitutional Vitals: Vital Signs Temp Pulse Resp BP Pulse Ox 99.6 F 79 24 109/60 99 12/25/17 12:00 12/25/17 12:50 12/25/17 12:50 12/25/17 12:50 12/25/17 12:50 Temperature -Last 24 Hours Temperature 99.6 F Temperature 100.2 F Temperature 99.9 F Temperature 100.8 F Temperature 100.6 F Temperature 99.7 F - Labs CBC & Chem 7: 12/25/17 Unknown 12/25/17 Unknown Labs: Abnormal lab results 12/24/17 12/24/17 12/24/17 Range/Units 10:12 16:26 20:44 WBC (4.5-11.0) K/mm3 RBC (3.65-5.03) M/mm3 Hgb (11.8-15.2) gm/dl Hct (35.5-45.6) % MCV (84-94) fl MCH (28-32) pg Plt Count (140-440) K/mm3 Seg Neuts % (Manual) (40.0-70.0) % Lymphocytes % (Manual) (13.4-35.0) % Seg Neutrophils # Man (1.8-7.7) K/mm3 POC ABG pH 7.558 H (7.35-7.45) POC ABG pCO2 27.6 L (35-45) POC ABG pO2 71 L (80-105) Potassium (3.6-5.0) mmol/L Creatinine (0.8-1.5) mg/dL POC Glucose 113 H 124 H (70-105) Calcium (8.4-10.2) mg/dL Vancomycin Trough (5.0-20.0) ug/mL 12/24/17 12/25/17 12/25/17 Range/Units 21:49 02:26 03:38 WBC (4.5-11.0) K/mm3 RBC (3.65-5.03) M/mm3 Hgb (11.8-15.2) gm/dl Hct (35.5-45.6) % MCV (84-94) fl MCH (28-32) pg Plt Count (140-440) K/mm3 Seg Neuts % (Manual) (40.0-70.0) % Lymphocytes % (Manual) (13.4-35.0) % Seg Neutrophils # Man (1.8-7.7) K/mm3 POC ABG pH 7.503 H (7.35-7.45) POC ABG pCO2 (35-45) POC ABG pO2 66 L (80-105) Potassium (3.6-5.0) mmol/L Creatinine (0.8-1.5) mg/dL POC Glucose 115 H 106 H (70-105) Calcium (8.4-10.2) mg/dL Vancomycin Trough (5.0-20.0) ug/mL 12/25/17 12/25/17 12/25/17 Range/Units 04:58 12:58 15:06 WBC (4.5-11.0) K/mm3 RBC (3.65-5.03) M/mm3 Hgb (11.8-15.2) gm/dl Hct (35.5-45.6) % MCV (84-94) fl MCH (28-32) pg Plt Count (140-440) K/mm3 Seg Neuts % (Manual) (40.0-70.0) % Lymphocytes % (Manual) (13.4-35.0) % Seg Neutrophils # Man (1.8-7.7) K/mm3 POC ABG pH (7.35-7.45) POC ABG pCO2 (35-45) POC ABG pO2 (80-105) Potassium (3.6-5.0) mmol/L Creatinine (0.8-1.5) mg/dL POC Glucose 113 H 118 H (70-105) Calcium (8.4-10.2) mg/dL Vancomycin Trough 22.5 H (5.0-20.0) ug/mL 12/25/17 12/25/17 Range/Units Unknown Unknown WBC 20.5 H (4.5-11.0) K/mm3 RBC 2.75 L (3.65-5.03) M/mm3 Hgb 9.1 L (11.8-15.2) gm/dl Hct 27.1 L (35.5-45.6) % MCV 99 H (84-94) fl MCH 33 H (28-32) pg Plt Count 126 L (140-440) K/mm3 Seg Neuts % (Manual) 89.0 H (40.0-70.0) % Lymphocytes % (Manual) 6.0 L (13.4-35.0) % Seg Neutrophils # Man 18.2 H (1.8-7.7) K/mm3 POC ABG pH (7.35-7.45) POC ABG pCO2 (35-45) POC ABG pO2 (80-105) Potassium 2.8 L* (3.6-5.0) mmol/L Creatinine 0.6 L (0.8-1.5) mg/dL POC Glucose (70-105) Calcium 7.4 L (8.4-10.2) mg/dL Vancomycin Trough (5.0-20.0) ug/mL
[2017-12-25] MEDS: ZYVOX 600MG/300ML 600 MG/300 ML BAG IV SCH ×2 (17:42→22:10)
[2017-12-25] MEDS ORDERED: VANCOMYCIN 1,750 MG in NACL 0.9% 500 ML 500 ML IV SCH (22:00)
[2017-12-26] MEDS: DUONEB *Not for PRN Use IH SCH ×4 (01:58→20:11)
[2017-12-26] MEDS: LIBRIUM PO SCH ×4 (05:37→23:18)
[2017-12-26] MEDS: FLAGYL 500 MG/100 ML 500 MG/100 ML BAG IV SCH ×3 (05:37→22:00)
[2017-12-26] MEDS: DILAUDID PO SCH ×4 (05:37→23:21)
[2017-12-26] MEDS: DEXMEDETOMIDINE 200 MCG in NACL 0.9% 48 ML IV SCH ×4 (05:38→13:45)
[2017-12-26] MEDS: MAXIPIME 2 GM in NACL 0.9% 20 ML IV SCH ×3 (05:39→22:00)
[2017-12-26] MEDS: HEPARIN SUB-Q SCH ×3 (05:39→22:00)
--- NOTE | 2017-12-26 09:08 | Progress Note ---
Assessment and Plan Assessment and plan: --Persistent fevers; secondary to sepsis Continue IV antibiotics, antipyretics, follow cultures ID following --Hypokalemia; replenished per protocol and monitor levels --Acute hypoxic respiratory failure : Intubated on ventilatory support Continue nebulizers,wean as tolerated and extubate, pulmonary following --Possible ARDS/aspiration pneumonia: Continue current antibiotics , cefepime and Zyvox and Flagyl Follow cultures --Sepsis with Aspiration pneumonia ?, Present on admission on IV antibiotics, repeat blood cx negative --Alcohol abuse: sedated, cont iv thiamine --Hypotension resolved with ivfs and iv steroids --Thrombocytopenia, improving closely monitor, no evidence of bleeding --Hypernatremia -corrected --Severe protein calorie malnutrition; nutrition supplements, to feeding and supportive care --DM type 2-continue Accu-Chek sliding scale coverage long-acting insulin, chilled feeding --DVT prophylaxis: scd only, no pharmacologic anticoagulation due to thrombocytopenia Plan of care is reviewed with the patient's nurse and case management Consults and recommendations noted and appreciated Critical care time 31 minutes The high probability of a clinically significant sudden or life-threatening deterioration of the [infectious, respiratory, hematologic] system(s) required my full and direct attention, intervention and personal management. The aggregate critical care time was [31 ] minutes. This time is in addition to the time spent performing reported procedures but including [ X] Data review and interpretation [ X] Patient assessment and monitoring of vital signs [ X ] Documentation [X] Medication orders and management History Interval history: Patient seen and examined medical records reviewed this morning in ICU No new events reported by the nursing staff Patient remains febrile, MAXIMUM TEMPERATURE 101.2 Remains intubated on ventilatory support Comfortable and sedated Vital signs reviewed Hospitalist Physical - Constitutional Vitals: Temp Pulse Resp BP Pulse Ox 101.2 F H 85 31 H 121/70 97 12/26/17 08:00 12/26/17 09:00 12/26/17 09:00 12/26/17 09:00 12/26/17 09:00 General appearance: Present: no acute distress, well-nourished, other ( intubated on vent) - EENT Eyes: Present: PERRL, EOM intact - Neck Neck: Present: supple, normal ROM - Respiratory Respiratory effort: normal Respiratory: bilateral: diminished, rhonchi, negative: rales, wheezing - Cardiovascular Rhythm: regular Heart Sounds: Present: S1 & S2 - Extremities Extremities: no ischemia, No edema - Abdominal General gastrointestinal: soft, non-tender, non-distended, normal bowel sounds - Integumentary Integumentary: Present: clear, warm - Psychiatric Psychiatric: appropriate mood/affect, cooperative - Neurologic Neurologic: CNII-XII intact, moves all extremities Results - Labs CBC & Chem 7: 12/25/17 Unknown 12/26/17 Unknown Labs: Laboratory Last Values WBC 20.5 K/mm3 (4.5-11.0) H 12/25/17 Unknown RBC 2.75 M/mm3 (3.65-5.03) L 12/25/17 Unknown Hgb 9.1 gm/dl (11.8-15.2) L 12/25/17 Unknown Hct 27.1 % (35.5-45.6) L 12/25/17 Unknown MCV 99 fl (84-94) H 12/25/17 Unknown MCH 33 pg (28-32) H 12/25/17 Unknown MCHC 34 % (32-34) 12/25/17 Unknown RDW 13.4 % (13.2-15.2) 12/25/17 Unknown Plt Count 126 K/mm3 (140-440) L 12/25/17 Unknown [place] % (Auto) Forest Manager 12/12/17 19:02 Add Manual Diff Complete 12/25/17 Unknown Total Counted 200 12/25/17 Unknown Seg Neutrophils % Forest Manager 12/23/17 09:25 Seg Neuts % (Manual) 89.0 % (40.0-70.0) H 12/25/17 Unknown Band Neutrophils % 1.5 % 12/25/17 Unknown Lymphocytes % (Manual) 6.0 % (13.4-35.0) L 12/25/17 Unknown Reactive Lymphs % (Man) 0 % 12/25/17 Unknown Monocytes % (Manual) 3.5 % (0.0-7.3) 12/25/17 Unknown Eosinophils % (Manual) 0 % (0.0-4.3) 12/25/17 Unknown Basophils % (Manual) 0 % (0.0-1.8) 12/25/17 Unknown Metamyelocytes % 0 % 12/25/17 Unknown Myelocytes % 0 % 12/25/17 Unknown Promyelocytes % 0 % 12/25/17 Unknown Blast Cells % 0 % 12/25/17 Unknown Nucleated RBC % Not Reportable 12/25/17 Unknown Seg Neutrophils # Man 18.2 K/mm3 (1.8-7.7) H 12/25/17 Unknown Band Neutrophils # 0.3 K/mm3 12/25/17 Unknown Lymphocytes # (Manual) 1.2 K/mm3 (1.2-5.4) 12/25/17 Unknown Abs React Lymphs (Man) 0.0 K/mm3 12/25/17 Unknown Monocytes # (Manual) 0.7 K/mm3 (0.0-0.8) 12/25/17 Unknown Eosinophils # (Manual) 0.0 K/mm3 (0.0-0.4) 12/25/17 Unknown Basophils # (Manual) 0.0 K/mm3 (0.0-0.1) 12/25/17 Unknown Metamyelocytes # 0.0 K/mm3 12/25/17 Unknown Myelocytes # 0.0 K/mm3 12/25/17 Unknown Promyelocytes # 0.0 K/mm3 12/25/17 Unknown Blast Cells # 0.0 K/mm3 12/25/17 Unknown Pathologist Review 12/23/17 09:25 WBC Morphology Not Reportable 12/25/17 Unknown Hypersegmented Neuts Not Reportable 12/25/17 Unknown Hyposegmented Neuts Not Reportable 12/25/17 Unknown Hypogranular Neuts Not Reportable 12/25/17 Unknown Smudge Cells Not Reportable 12/25/17 Unknown Toxic Granulation Not Reportable 12/25/17 Unknown Toxic Vacuolation Not Reportable 12/25/17 Unknown Dohle Bodies Not Reportable 12/25/17 Unknown Pelger-Huet Anomaly Not Reportable 12/25/17 Unknown Mary Rods Not Reportable 12/25/17 Unknown Platelet Estimate Consistent w auto 12/25/17 Unknown Clumped Platelets Not Reportable 12/25/17 Unknown Plt Clumps, EDTA Not Reportable 12/25/17 Unknown Large Platelets Not Reportable 12/25/17 Unknown Giant Platelets Not Reportable 12/25/17 Unknown Platelet Satelliting Not Reportable 12/25/17 Unknown Plt Morphology Comment Not Reportable 12/25/17 Unknown RBC Morphology Not Reportable 12/25/17 Unknown Dimorphic RBCs Not Reportable 12/25/17 Unknown Polychromasia Not Reportable 12/25/17 Unknown Hypochromasia Not Reportable 12/25/17 Unknown Poikilocytosis Not Reportable 12/25/17 Unknown Anisocytosis 1+ 12/25/17 Unknown Microcytosis Not Reportable 12/25/17 Unknown Macrocytosis Not Reportable 12/25/17 Unknown Spherocytes Not Reportable 12/25/17 Unknown Pappenheimer Bodies Not Reportable 12/25/17 Unknown Sickle Cells Not Reportable 12/25/17 Unknown Target Cells Not Reportable 12/25/17 Unknown Tear Drop Cells Not Reportable 12/25/17 Unknown Ovalocytes Not Reportable 12/25/17 Unknown Stomatocytes Few 12/20/17 04:08 Helmet Cells Not Reportable 12/25/17 Unknown [place] Bodies Not Reportable 12/25/17 Unknown [place] Rings Not Reportable 12/25/17 Unknown [place] Cells Not Reportable 12/25/17 Unknown Bite Cells Not Reportable 12/25/17 Unknown Crenated Cell Not Reportable 12/25/17 Unknown Elliptocytes Not Reportable 12/25/17 Unknown Acanthocytes (Spur) Not Reportable 12/25/17 Unknown Rouleaux Not Reportable 12/25/17 Unknown Hemoglobin C Crystals Not Reportable 12/25/17 Unknown Schistocytes Not Reportable 12/25/17 Unknown Malaria parasites Not Reportable 12/25/17 Unknown Vipul Bodies Not Reportable 12/25/17 Unknown Hem Pathologist Commnt No 12/25/17 Unknown PT 14.9 Sec. (12.2-14.9) 12/15/17 04:05 INR 1.11 (0.87-1.13) 12/15/17 04:05 APTT 20.9 Sec. (24.2-36.6) L 12/15/17 04:05 POC ABG pH 7.503 (7.35-7.45) H 12/25/17 03:38 POC ABG pCO2 35.8 (35-45) 12/25/17 03:38 POC ABG pO2 66 (80-105) L 12/25/17 03:38 POC ABG HCO3 28.1 12/25/17 03:38 POC ABG Total CO2 29 12/25/17 03:38 POC ABG O2 Sat 95 12/25/17 03:38 POC ABG Base Excess 5 12/25/17 03:38 VBG pH 7.472 (7.320-7.420) H 12/12/17 19:18 FiO2 35 % 12/25/17 03:38 Sodium 139 mmol/L (137-145) 12/25/17 Unknown Potassium 2.8 mmol/L (3.6-5.0) L* 12/25/17 Unknown Chloride 103.3 mmol/L (98-107) 12/25/17 Unknown Carbon Dioxide 25 mmol/L (22-30) 12/25/17 Unknown Anion Gap 14 mmol/L 12/25/17 Unknown BUN 14 mg/dL (9-20) 12/25/17 Unknown Creatinine 0.6 mg/dL (0.8-1.5) L 12/25/17 Unknown Estimated GFR > 60 ml/min 12/25/17 Unknown BUN/Creatinine Ratio 23 % 12/25/17 Unknown Glucose 99 mg/dL (75-100) 12/25/17 Unknown POC Glucose 216 (70-105) H 12/26/17 05:29 Lactic Acid 2.00 mmol/L (0.7-2.0) 12/13/17 19:38 Calcium 7.4 mg/dL (8.4-10.2) L 12/25/17 Unknown Magnesium 1.90 mg/dL (1.7-2.3) 12/26/17 04:30 Total Bilirubin 4.60 mg/dL (0.1-1.2) H 12/12/17 19:02 AST 93 units/L (5-40) H 12/12/17 19:02 ALT 112 units/L (7-56) H 12/12/17 19:02 Alkaline Phosphatase 80 units/L (35-129) 12/12/17 19:02 C-Reactive Protein 7.10 mg/dL (0.00-1.30) H 12/20/17 13:40 NT-Pro-B Natriuret Pep 409.9 pg/mL (0-450) 12/12/17 19:02 Total Protein 6.5 g/dL (6.3-8.2) 12/12/17 19:02 Albumin 2.5 g/dL (3.9-5) L 12/12/17 19:02 Albumin/Globulin Ratio 0.6 % 12/12/17 19:02 Triglycerides 1042 mg/dL (2-149) H 12/20/17 13:40 Amylase 20 units/L (27-131) L 12/13/17 13:47 Lipase 9 units/L (13-60) L 12/13/17 13:47 Urine Color Neeta (Yellow) 12/15/17 17:00 Urine Turbidity Hazy (Clear) 12/15/17 17:00 Urine pH 6.0 (5.0-7.0) 12/15/17 17:00 Ur Specific Kirk 1.027 (1.003-1.030) 12/15/17 17:00 Urine Protein 30 mg/dl mg/dL (Negative) 12/15/17 17:00 Urine Glucose (UA) Neg mg/dL (Negative) 12/15/17 17:00 Urine Ketones Tr mg/dL (Negative) 12/15/17 17:00 Urine Blood Lg (Negative) 12/15/17 17:00 Urine Nitrite Neg (Negative) 12/15/17 17:00 Urine Bilirubin Neg (Negative) 12/15/17 17:00 Urine Ictotest Positive (Negative) 12/12/17 20:42 Urine Urobilinogen < 2.0 mg/dL (<2.0) 12/15/17 17:00 Ur Leukocyte Esterase Tr (Negative) 12/15/17 17:00 Urine WBC (Auto) 38.0 /HPF (0.0-6.0) H 12/15/17 17:00 Urine RBC (Auto) 65.0 /HPF (0.0-6.0) 12/15/17 17:00 U Epithel Cells (Auto) < 1.0 /HPF (0-13.0) 12/12/17 20:42 Urine Bacteria (Auto) 1+ /HPF (Negative) 12/15/17 17:00 Urine Mucus 1+ /HPF 12/12/17 20:42 Vancomycin Trough 22.5 ug/mL (5.0-20.0) H 12/25/17 12:58 JERMAIN Screen Negative (Negative) 12/18/17 16:44 Proteinase 3 (PR3) Ab <1.0 AI (<1.0) 12/18/17 16:33 Myeloperoxidase Ab <1.0 AI (<1.0) 12/18/17 16:33 Complement C3 113 mg/dL (82-185) 12/18/17 16:33 Complement C4 15 mg/dL (15-53) 12/18/17 16:33 Hepatitis A IgM Ab Non-reactive (NonReactive) 12/20/17 13:40 Hep Bs Antigen Non-reactive (Negative) 12/20/17 13:40 Hep B Core IgM Ab Non-reactive (NonReactive) 12/20/17 13:40 Hepatitis C Antibody Non-reactive (NonReactive) 12/20/17 13:40 HIV 1&2 Antibody Rapid Non react (Non React) 12/20/17 13:40 HIV P24 Antigen Non react (Non React) 12/20/17 13:40 Influenza A (Rapid) Negative (Negative) 12/12/17 22:00 Influenza B (Rapid) Negative (Negative) 12/12/17 22:00 Urine Legionella Ag Not detected (Not Detected) 12/14/17 16:15 Miscellaneous Test Flexitest 1 12/14/17 16:15
[2017-12-26] MEDS: HumaLOG SUB-Q SCH ×7 (09:50→23:35)
[2017-12-26 10:13] LABS: BUN/Creatinine Ratio 22; Blood Urea Nitrogen 11 mg/dL (9-20); Calcium 7.8 mg/dL (8.4-10.2); Hemolysis Index 3
[2017-12-26] MEDS: VITAMIN B-1 PO SCH (10:31)
[2017-12-26] MEDS: POTASSIUM CHLORIDE PO SCH (10:31)
[2017-12-26] MEDS: PEPCID PO SCH ×2 (10:32→22:00)
[2017-12-26] MEDS: SODIUM CHLORIDE FLUSH SYRINGE 10 ML IV SCH ×2 (10:33→22:00)
[2017-12-26] MEDS: LOPRESSOR PO SCH ×2 (10:49→22:00)
[2017-12-26] MEDS: LANTUS SUB-Q SCH (10:55)
[2017-12-26] MEDS: ZYVOX 600MG/300ML 600 MG/300 ML BAG IV SCH ×2 (10:56→22:00)
--- NOTE | 2017-12-26 11:17 | Progress Note ---
Assessment and Plan 47 y/o male with acute respiratory failure thought secondary to H. Flu now with H. Flu bacteremia, sepsis and persistent fevers. 1. Awaiting chemistry from this am to evaluate potassium. Tolerated Lasix therapy and I feel this has helped with breathing. Would like to give again. Spiked a temp this am. Will reculture and repeat CXR 2. Continue Librium dosing as ordered. 3. Reviewed ID note. Would like to hold on [place] Scan currently if ok with them. 4. Will attempt PSV trial today CCT 31 minutes. Subjective Date of service: 12/26/17 Principal diagnosis: ARDS Interval history: Off versed. Stable. Tolerating PSV trial. Being cleaned right now. Spiked temp this am. Objective Vital Signs - 12hr 12/25/17 12/25/17 12/25/17 23:20 23:30 23:40 Temperature Pulse Rate 85 82 81 Pulse Rate [ Anterior Bilateral Throughout] Pulse Rate [ From Monitor] Respiratory 17 26 H 23 Rate Respiratory Rate [Anterior Bilateral Throughout] Blood Pressure 141/77 144/76 141/77 O2 Sat by Pulse Oximetry 12/25/17 12/26/17 12/26/17 23:50 00:00 00:10 Temperature 99.8 F H Pulse Rate 82 82 82 Pulse Rate [ Anterior Bilateral Throughout] Pulse Rate [ 90 From Monitor] Respiratory 25 H 23 23 Rate Respiratory Rate [Anterior Bilateral Throughout] Blood Pressure 141/77 144/76 138/74 O2 Sat by Pulse 99 Oximetry 12/26/17 12/26/17 12/26/17 00:19 00:20 00:30 Temperature Pulse Rate 81 82 82 Pulse Rate [ Anterior Bilateral Throughout] Pulse Rate [ From Monitor] Respiratory 23 23 Rate Respiratory Rate [Anterior Bilateral Throughout] Blood Pressure 144/76 144/76 129/68 O2 Sat by Pulse Oximetry 12/26/17 12/26/17 12/26/17 00:40 00:50 01:00 Temperature Pulse Rate 82 82 83 Pulse Rate [ Anterior Bilateral Throughout] Pulse Rate [ From Monitor] Respiratory 23 22 22 Rate Respiratory Rate [Anterior Bilateral Throughout] Blood Pressure 129/68 138/74 129/68 O2 Sat by Pulse Oximetry 12/26/17 12/26/17 12/26/17 01:10 01:20 01:30 Temperature Pulse Rate 85 83 82 Pulse Rate [ Anterior Bilateral Throughout] Pulse Rate [ From Monitor] Respiratory 24 22 29 H Rate Respiratory Rate [Anterior Bilateral Throughout] Blood Pressure 135/71 129/68 137/69 O2 Sat by Pulse Oximetry 12/26/17 12/26/17 12/26/17 01:40 01:50 02:00 Temperature Pulse Rate 92 H 98 H 88 Pulse Rate [ 86 Anterior Bilateral Throughout] Pulse Rate [ From Monitor] Respiratory 28 H 36 H 22 Rate Respiratory 15 Rate [Anterior Bilateral Throughout] Blood Pressure 137/69 137/69 134/74 O2 Sat by Pulse Oximetry 12/26/17 12/26/17 12/26/17 02:10 02:12 02:20 Temperature Pulse Rate 96 H 90 Pulse Rate [ 95 H Anterior Bilateral Throughout] Pulse Rate [ From Monitor] Respiratory 18 32 H Rate Respiratory 36 H Rate [Anterior Bilateral Throughout] Blood Pressure 134/74 134/74 O2 Sat by Pulse 100 Oximetry 12/26/17 12/26/17 12/26/17 02:31 02:48 02:50 Temperature Pulse Rate 90 88 Pulse Rate [ Anterior Bilateral Throughout] Pulse Rate [ From Monitor] Respiratory 12 Rate Respiratory Rate [Anterior Bilateral Throughout] Blood Pressure 114/81 114/81 114/81 O2 Sat by Pulse Oximetry 12/26/17 12/26/17 12/26/17 03:00 03:10 03:20 Temperature Pulse Rate 88 86 86 Pulse Rate [ Anterior Bilateral Throughout] Pulse Rate [ From Monitor] Respiratory 33 H 31 H 31 H Rate Respiratory Rate [Anterior Bilateral Throughout] Blood Pressure 114/81 134/74 114/81 O2 Sat by Pulse Oximetry 12/26/17 12/26/17 12/26/17 03:30 03:40 03:50 Temperature Pulse Rate 86 85 85 Pulse Rate [ Anterior Bilateral Throughout] Pulse Rate [ From Monitor] Respiratory 31 H 30 H 31 H Rate Respiratory Rate [Anterior Bilateral Throughout] Blood Pressure 114/81 114/81 114/81 O2 Sat by Pulse Oximetry 12/26/17 12/26/17 12/26/17 04:00 04:10 04:20 Temperature 99.9 F H Pulse Rate 93 H 88 89 Pulse Rate [ Anterior Bilateral Throughout] Pulse Rate [ 95 H From Monitor] Respiratory 29 H 31 H 31 H Rate Respiratory Rate [Anterior Bilateral Throughout] Blood Pressure 130/75 114/81 114/81 O2 Sat by Pulse 100 Oximetry 03/29/18 03/29/18 03/29/18 04:30 04:40 04:50 Temperature Pulse Rate 90 95 H 99 H Pulse Rate [ Anterior Bilateral Throughout] Pulse Rate [ From Monitor] Respiratory 30 H 33 H 14 Rate Respiratory Rate [Anterior Bilateral Throughout] Blood Pressure 114/81 114/81 114/81 O2 Sat by Pulse Oximetry 12/26/17 12/26/17 12/26/17 05:00 05:10 05:20 Temperature Pulse Rate 105 H 100 H 93 H Pulse Rate [ Anterior Bilateral Throughout] Pulse Rate [ From Monitor] Respiratory 11 L 39 H 26 H Rate Respiratory Rate [Anterior Bilateral Throughout] Blood Pressure 114/81 114/81 114/81 O2 Sat by Pulse Oximetry 12/26/17 12/26/17 12/26/17 05:30 05:40 05:50 Temperature Pulse Rate 91 H 86 85 Pulse Rate [ Anterior Bilateral Throughout] Pulse Rate [ From Monitor] Respiratory 33 H 31 H 31 H Rate Respiratory Rate [Anterior Bilateral Throughout] Blood Pressure 114/81 114/81 114/81 O2 Sat by Pulse Oximetry 12/26/17 12/26/17 12/26/17 06:00 06:10 06:30 Temperature Pulse Rate 84 86 85 Pulse Rate [ Anterior Bilateral Throughout] Pulse Rate [ From Monitor] Respiratory 31 H 30 H 30 H Rate Respiratory Rate [Anterior Bilateral Throughout] Blood Pressure 128/75 130/75 125/74 O2 Sat by Pulse 96 98 Oximetry 12/26/17 12/26/17 12/26/17 07:00 07:30 08:00 Temperature 101.2 F H Pulse Rate 86 85 91 H Pulse Rate [ Anterior Bilateral Throughout] Pulse Rate [ 86 From Monitor] Respiratory 29 H 30 H 11 L Rate Respiratory Rate [Anterior Bilateral Throughout] Blood Pressure 122/68 119/67 122/65 O2 Sat by Pulse 98 97 96 Oximetry 12/26/17 12/26/17 12/26/17 08:30 08:54 09:00 Temperature Pulse Rate 84 86 85 Pulse Rate [ 85 Anterior Bilateral Throughout] Pulse Rate [ From Monitor] Respiratory 30 H 31 H Rate Respiratory 29 H Rate [Anterior Bilateral Throughout] Blood Pressure 130/73 130/73 121/70 O2 Sat by Pulse 99 97 Oximetry Constitutional: other (intubated, sedated) Eyes: non-icteric ENT: oropharynx moist Neck: supple Effort: normal Ascultation: Right: rales, Bilateral: diminished breath sounds, other (coarse BS bilaterally) Cardiovascular: regular rate and rhythm, other (tachycardic) Gastrointestinal: normoactive bowel sounds, soft, non-tender, non-distended, other (obese) Integumentary: normal Extremities: no cyanosis, no edema, pink and warm Neurologic: unable to assess (due to sedation) Psychiatric: other (not able to assess) CBC and BMP: 12/25/17 Unknown 12/25/17 Unknown ABG, PT/INR, D-dimer: ABG POC ABG pH 7.503 (7.35-7.45) H 12/25/17 03:38 POC ABG pCO2 35.8 (35-45) 12/25/17 03:38 POC ABG pO2 66 (80-105) L 12/25/17 03:38 POC ABG HCO3 28.1 12/25/17 03:38 POC ABG Total CO2 29 12/25/17 03:38 POC ABG O2 Sat 95 12/25/17 03:38 PT/INR, D-dimer PT 14.9 Sec. (12.2-14.9) 12/15/17 04:05 INR 1.11 (0.87-1.13) 12/15/17 04:05 Abnormal lab findings: Abnormal Labs 12/12/17 12/12/17 12/12/17 18:57 19:02 19:02 WBC RBC Hgb Hct MCV 96 H MCH 34 H MCHC 35 H RDW Plt Count 46 L Seg Neuts % (Manual) 77.0 H Lymphocytes % (Manual) 13.0 L Monocytes % (Manual) Nucleated RBC % Seg Neutrophils # Man Lymphocytes # (Manual) 0.9 L Monocytes # (Manual) APTT POC ABG pH POC ABG pCO2 POC ABG pO2 VBG pH Sodium Potassium Chloride Carbon Dioxide BUN Creatinine Glucose POC Glucose 321 H Lactic Acid 4.00 H* Calcium Total Bilirubin AST ALT C-Reactive Protein Albumin Triglycerides Amylase Lipase Urine WBC (Auto) Vancomycin Trough 12/12/17 12/12/17 12/12/17 19:02 19:18 20:55 WBC RBC Hgb Hct MCV MCH MCHC RDW Plt Count Seg Neuts % (Manual) Lymphocytes % (Manual) Monocytes % (Manual) Nucleated RBC % Seg Neutrophils # Man Lymphocytes # (Manual) Monocytes # (Manual) APTT POC ABG pH POC ABG pCO2 POC ABG pO2 VBG pH 7.472 H Sodium 124 L Potassium Chloride 80.0 L Carbon Dioxide 20 L BUN Creatinine Glucose 382 H POC Glucose 283 H Lactic Acid Calcium 8.1 L Total Bilirubin 4.60 H AST 93 H ALT 112 H C-Reactive Protein Albumin 2.5 L Triglycerides Amylase Lipase Urine WBC (Auto) Vancomycin Trough 12/12/17 12/13/17 12/13/17 21:41 00:45 01:29 WBC RBC Hgb Hct MCV MCH MCHC RDW Plt Count Seg Neuts % (Manual) Lymphocytes % (Manual) Monocytes % (Manual) Nucleated RBC % Seg Neutrophils # Man Lymphocytes # (Manual) Monocytes # (Manual) APTT POC ABG pH POC ABG pCO2 POC ABG pO2 VBG pH Sodium Potassium Chloride Carbon Dioxide BUN Creatinine Glucose POC Glucose Lactic Acid 4.20 H* 2.70 H* 3.30 H* Calcium Total Bilirubin AST ALT C-Reactive Protein Albumin Triglycerides Amylase Lipase Urine WBC (Auto) Vancomycin Trough 12/13/17 12/13/17 12/13/17 02:19 03:44 05:58 WBC RBC Hgb Hct MCV 97 H MCH 34 H MCHC 35 H RDW Plt Count 41 L Seg Neuts % (Manual) Lymphocytes % (Manual) 8.0 L Monocytes % (Manual) 8.0 H Nucleated RBC % Seg Neutrophils # Man Lymphocytes # (Manual) 0.6 L Monocytes # (Manual) APTT POC ABG pH 7.334 L POC ABG pCO2 POC ABG pO2 43 L VBG pH Sodium Potassium Chloride Carbon Dioxide BUN Creatinine Glucose POC Glucose Lactic Acid 2.60 H* Calcium Total Bilirubin AST ALT C-Reactive Protein Albumin Triglycerides Amylase Lipase Urine WBC (Auto) Vancomycin Trough 12/13/17 12/13/17 12/13/17 05:58 05:58 05:58 WBC RBC Hgb Hct MCV MCH MCHC RDW Plt Count Seg Neuts % (Manual) Lymphocytes % (Manual) Monocytes % (Manual) Nucleated RBC % Seg Neutrophils # Man Lymphocytes # (Manual) Monocytes # (Manual) APTT POC ABG pH POC ABG pCO2 POC ABG pO2 VBG pH Sodium 132 L D Potassium Chloride 90.0 L Carbon Dioxide 20 L BUN Creatinine Glucose 346 H POC Glucose 298 H Lactic Acid 4.50 H* Calcium 8.2 L Total Bilirubin AST ALT C-Reactive Protein Albumin Triglycerides Amylase Lipase Urine WBC (Auto) Vancomycin Trough 12/13/17 12/13/17 12/13/17 06:27 09:42 11:47 WBC RBC Hgb Hct MCV MCH MCHC RDW Plt Count Seg Neuts % (Manual) Lymphocytes % (Manual) Monocytes % (Manual) Nucleated RBC % Seg Neutrophils # Man Lymphocytes # (Manual) Monocytes # (Manual) APTT POC ABG pH 7.267 L 7.298 L POC ABG pCO2 50.4 H 51.3 H POC ABG pO2 47 L 43 L VBG pH Sodium Potassium Chloride Carbon Dioxide BUN Creatinine Glucose POC Glucose 376 H Lactic Acid Calcium Total Bilirubin AST ALT C-Reactive Protein Albumin Triglycerides Amylase Lipase Urine WBC (Auto) Vancomycin Trough 12/13/17 12/13/17 12/13/17 12:03 13:47 13:47 WBC RBC Hgb Hct MCV MCH MCHC RDW Plt Count Seg Neuts % (Manual) Lymphocytes % (Manual) Monocytes % (Manual) Nucleated RBC % Seg Neutrophils # Man Lymphocytes # (Manual) Monocytes # (Manual) APTT POC ABG pH 7.264 L POC ABG pCO2 54.9 H POC ABG pO2 55 L VBG pH Sodium Potassium Chloride Carbon Dioxide BUN Creatinine Glucose POC Glucose Lactic Acid 2.80 H* Calcium Total Bilirubin AST ALT C-Reactive Protein Albumin Triglycerides Amylase 20 L Lipase 9 L Urine WBC (Auto) Vancomycin Trough 12/13/17 12/13/17 12/13/17 15:36 17:39 21:47 WBC RBC Hgb Hct MCV MCH MCHC RDW Plt Count Seg Neuts % (Manual) Lymphocytes % (Manual) Monocytes % (Manual) Nucleated RBC % Seg Neutrophils # Man Lymphocytes # (Manual) Monocytes # (Manual) APTT POC ABG pH 7.229 L 7.225 L POC ABG pCO2 60.9 H 66.3 H POC ABG pO2 42 L 41 L VBG pH Sodium Potassium Chloride Carbon Dioxide BUN Creatinine Glucose POC Glucose 289 H Lactic Acid Calcium Total Bilirubin AST ALT C-Reactive Protein Albumin Triglycerides Amylase Lipase Urine WBC (Auto) Vancomycin Trough 12/13/17 12/14/17 12/14/17 22:19 02:03 05:16 WBC RBC Hgb Hct MCV MCH MCHC RDW Plt Count Seg Neuts % (Manual) Lymphocytes % (Manual) Monocytes % (Manual) Nucleated RBC % Seg Neutrophils # Man Lymphocytes # (Manual) Monocytes # (Manual) APTT POC ABG pH 7.247 L POC ABG pCO2 61.2 H POC ABG pO2 53 L VBG pH Sodium Potassium Chloride Carbon Dioxide BUN Creatinine Glucose POC Glucose 274 H 295 H Lactic Acid Calcium Total Bilirubin AST ALT C-Reactive Protein Albumin Triglycerides Amylase Lipase Urine WBC (Auto) Vancomycin Trough 12/14/17 12/14/17 12/14/17 05:32 12:04 16:22 WBC RBC Hgb Hct MCV MCH MCHC RDW Plt Count Seg Neuts % (Manual) Lymphocytes % (Manual) Monocytes % (Manual) Nucleated RBC % Seg Neutrophils # Man Lymphocytes # (Manual) Monocytes # (Manual) APTT POC ABG pH POC ABG pCO2 POC ABG pO2 VBG pH Sodium Potassium Chloride Carbon Dioxide BUN Creatinine Glucose POC Glucose 230 H 241 H 231 H Lactic Acid Calcium Total Bilirubin AST ALT C-Reactive Protein Albumin Triglycerides Amylase Lipase Urine WBC (Auto) Vancomycin Trough 12/14/17 12/15/17 12/15/17 21:29 02:29 03:25 WBC RBC Hgb Hct MCV MCH MCHC RDW Plt Count Seg Neuts % (Manual) Lymphocytes % (Manual) Monocytes % (Manual) Nucleated RBC % Seg Neutrophils # Man Lymphocytes # (Manual) Monocytes # (Manual) APTT POC ABG pH 7.330 L POC ABG pCO2 55.3 H POC ABG pO2 59 L VBG pH Sodium Potassium Chloride Carbon Dioxide BUN Creatinine Glucose POC Glucose 258 H 246 H Lactic Acid Calcium Total Bilirubin AST ALT C-Reactive Protein Albumin Triglycerides Amylase Lipase Urine WBC (Auto) Vancomycin Trough 12/15/17 12/15/17 12/15/17 04:05 04:05 04:05 WBC 15.0 H RBC 3.40 L Hgb 11.3 L D Hct 33.8 L D MCV 100 H MCH 33 H MCHC RDW Plt Count 48 L Seg Neuts % (Manual) Lymphocytes % (Manual) 3.0 L Monocytes % (Manual) Nucleated RBC % 2.0 H Seg Neutrophils # Man Lymphocytes # (Manual) 0.5 L Monocytes # (Manual) 0.9 H APTT 20.9 L POC ABG pH POC ABG pCO2 POC ABG pO2 VBG pH Sodium Potassium Chloride Carbon Dioxide BUN 27 H Creatinine Glucose 258 H POC Glucose Lactic Acid Calcium 8.1 L Total Bilirubin AST ALT C-Reactive Protein Albumin Triglycerides Amylase Lipase Urine WBC (Auto) Vancomycin Trough 12/15/17 12/15/17 12/15/17 05:32 11:17 14:59 WBC RBC Hgb Hct MCV MCH MCHC RDW Plt Count Seg Neuts % (Manual) Lymphocytes % (Manual) Monocytes % (Manual) Nucleated RBC % Seg Neutrophils # Man Lymphocytes # (Manual) Monocytes # (Manual) APTT POC ABG pH POC ABG pCO2 POC ABG pO2 VBG pH Sodium Potassium Chloride Carbon Dioxide BUN Creatinine Glucose POC Glucose 247 H 268 H 233 H Lactic Acid Calcium Total Bilirubin AST ALT C-Reactive Protein Albumin Triglycerides Amylase Lipase Urine WBC (Auto) Vancomycin Trough 12/15/17 12/15/17 12/15/17 17:00 18:59 21:37 WBC RBC Hgb Hct MCV MCH MCHC RDW Plt Count Seg Neuts % (Manual) Lymphocytes % (Manual) Monocytes % (Manual) Nucleated RBC % Seg Neutrophils # Man Lymphocytes # (Manual) Monocytes # (Manual) APTT POC ABG pH POC ABG pCO2 POC ABG pO2 VBG pH Sodium Potassium Chloride Carbon Dioxide BUN Creatinine Glucose POC Glucose 195 H 208 H Lactic Acid Calcium Total Bilirubin AST ALT C-Reactive Protein Albumin Triglycerides Amylase Lipase Urine WBC (Auto) 38.0 H Vancomycin Trough 12/16/17 12/16/17 12/16/17 03:17 03:33 04:18 WBC 16.4 H RBC 3.50 L Hgb 11.3 L Hct 35.4 L MCV 101 H MCH MCHC RDW Plt Count 54 L Seg Neuts % (Manual) Lymphocytes % (Manual) Monocytes % (Manual) Nucleated RBC % Seg Neutrophils # Man Lymphocytes # (Manual) Monocytes # (Manual) APTT POC ABG pH POC ABG pCO2 47.7 H POC ABG pO2 VBG pH Sodium Potassium Chloride Carbon Dioxide BUN Creatinine Glucose POC Glucose 227 H Lactic Acid Calcium Total Bilirubin AST ALT C-Reactive Protein Albumin Triglycerides Amylase Lipase Urine WBC (Auto) Vancomycin Trough 12/16/17 12/16/17 12/16/17 04:18 05:08 10:01 WBC RBC Hgb Hct MCV MCH MCHC RDW Plt Count Seg Neuts % (Manual) Lymphocytes % (Manual) Monocytes % (Manual) Nucleated RBC % Seg Neutrophils # Man Lymphocytes # (Manual) Monocytes # (Manual) APTT POC ABG pH POC ABG pCO2 POC ABG pO2 VBG pH Sodium 147 H Potassium Chloride 107.4 H Carbon Dioxide BUN 28 H Creatinine Glucose 240 H POC Glucose 227 H 190 H Lactic Acid Calcium 8.3 L Total Bilirubin AST ALT C-Reactive Protein Albumin Triglycerides Amylase Lipase Urine WBC (Auto) Vancomycin Trough 12/16/17 12/16/17 12/16/17 14:15 17:51 21:14 WBC RBC Hgb Hct MCV MCH MCHC RDW Plt Count Seg Neuts % (Manual) Lymphocytes % (Manual) Monocytes % (Manual) Nucleated RBC % Seg Neutrophils # Man Lymphocytes # (Manual) Monocytes # (Manual) APTT POC ABG pH POC ABG pCO2 POC ABG pO2 VBG pH Sodium Potassium Chloride Carbon Dioxide BUN Creatinine Glucose POC Glucose 279 H 272 H 260 H Lactic Acid Calcium Total Bilirubin AST ALT C-Reactive Protein Albumin Triglycerides Amylase Lipase Urine WBC (Auto) Vancomycin Trough 12/17/17 12/17/17 12/17/17 02:41 04:28 04:28 WBC 19.1 H RBC 3.50 L Hgb 11.4 L Hct 35.3 L MCV 101 H MCH 33 H MCHC RDW Plt Count 65 L Seg Neuts % (Manual) Lymphocytes % (Manual) Monocytes % (Manual) Nucleated RBC % Seg Neutrophils # Man Lymphocytes # (Manual) Monocytes # (Manual) APTT POC ABG pH POC ABG pCO2 POC ABG pO2 VBG pH Sodium 153 H Potassium Chloride 111.2 H Carbon Dioxide 31 H BUN 28 H Creatinine Glucose 248 H POC Glucose 300 H Lactic Acid Calcium Total Bilirubin AST ALT C-Reactive Protein Albumin Triglycerides Amylase Lipase Urine WBC (Auto) Vancomycin Trough 12/17/17 12/17/17 12/17/17 05:15 05:38 10:16 WBC RBC Hgb Hct MCV MCH MCHC RDW Plt Count Seg Neuts % (Manual) Lymphocytes % (Manual) Monocytes % (Manual) Nucleated RBC % Seg Neutrophils # Man Lymphocytes # (Manual) Monocytes # (Manual) APTT POC ABG pH POC ABG pCO2 50.3 H POC ABG pO2 120 H VBG pH Sodium Potassium Chloride Carbon Dioxide BUN Creatinine Glucose POC Glucose 231 H 196 H Lactic Acid Calcium Total Bilirubin AST ALT C-Reactive Protein Albumin Triglycerides Amylase Lipase Urine WBC (Auto) Vancomycin Trough 12/17/17 12/17/17 12/17/17 14:22 18:14 21:35 WBC RBC Hgb Hct MCV MCH MCHC RDW Plt Count Seg Neuts % (Manual) Lymphocytes % (Manual) Monocytes % (Manual) Nucleated RBC % Seg Neutrophils # Man Lymphocytes # (Manual) Monocytes # (Manual) APTT POC ABG pH POC ABG pCO2 POC ABG pO2 VBG pH Sodium Potassium Chloride Carbon Dioxide BUN Creatinine Glucose POC Glucose 234 H 215 H 159 H Lactic Acid Calcium Total Bilirubin AST ALT C-Reactive Protein Albumin Triglycerides Amylase Lipase Urine WBC (Auto) Vancomycin Trough 12/18/17 12/18/17 12/18/17 00:53 02:58 06:03 WBC RBC Hgb Hct MCV MCH MCHC RDW Plt Count Seg Neuts % (Manual) Lymphocytes % (Manual) Monocytes % (Manual) Nucleated RBC % Seg Neutrophils # Man Lymphocytes # (Manual) Monocytes # (Manual) APTT POC ABG pH POC ABG pCO2 56.4 H POC ABG pO2 46 L VBG pH Sodium Potassium Chloride Carbon Dioxide BUN Creatinine Glucose POC Glucose 176 H 143 H Lactic Acid Calcium Total Bilirubin AST ALT C-Reactive Protein Albumin Triglycerides Amylase Lipase Urine WBC (Auto) Vancomycin Trough 12/18/17 12/18/17 12/18/17 07:59 09:20 09:20 WBC 27.4 H RBC 3.57 L Hgb 11.4 L Hct MCV 101 H MCH MCHC RDW Plt Count 64 L Seg Neuts % (Manual) Lymphocytes % (Manual) Monocytes % (Manual) Nucleated RBC % Seg Neutrophils # Man Lymphocytes # (Manual) Monocytes # (Manual) APTT POC ABG pH POC ABG pCO2 POC ABG pO2 VBG pH Sodium 152 H Potassium Chloride 107.9 H Carbon Dioxide 34 H BUN 23 H Creatinine 0.7 L Glucose 181 H POC Glucose 197 H Lactic Acid Calcium Total Bilirubin AST ALT C-Reactive Protein Albumin Triglycerides Amylase Lipase Urine WBC (Auto) Vancomycin Trough 12/18/17 12/18/17 12/18/17 10:22 15:03 18:15 WBC RBC Hgb Hct MCV MCH MCHC RDW Plt Count Seg Neuts % (Manual) Lymphocytes % (Manual) Monocytes % (Manual) Nucleated RBC % Seg Neutrophils # Man Lymphocytes # (Manual) Monocytes # (Manual) APTT POC ABG pH POC ABG pCO2 POC ABG pO2 VBG pH Sodium Potassium Chloride Carbon Dioxide BUN Creatinine Glucose POC Glucose 195 H 225 H 238 H Lactic Acid Calcium Total Bilirubin AST ALT C-Reactive Protein Albumin Triglycerides Amylase Lipase Urine WBC (Auto) Vancomycin Trough 12/18/17 12/18/17 12/19/17 18:29 21:53 00:18 WBC RBC Hgb Hct MCV MCH MCHC RDW Plt Count Seg Neuts % (Manual) Lymphocytes % (Manual) Monocytes % (Manual) Nucleated RBC % Seg Neutrophils # Man Lymphocytes # (Manual) Monocytes # (Manual) APTT POC ABG pH 7.476 H POC ABG pCO2 50.4 H POC ABG pO2 158 H VBG pH Sodium Potassium Chloride Carbon Dioxide BUN Creatinine Glucose POC Glucose 231 H 263 H Lactic Acid Calcium Total Bilirubin AST ALT C-Reactive Protein Albumin Triglycerides Amylase Lipase Urine WBC (Auto) Vancomycin Trough 12/19/17 12/19/17 12/19/17 02:09 04:07 04:07 WBC 25.9 H RBC 3.25 L Hgb 10.6 L Hct 32.8 L MCV 101 H MCH 33 H MCHC RDW Plt Count 67 L Seg Neuts % (Manual) Lymphocytes % (Manual) 4.0 L Monocytes % (Manual) Nucleated RBC % Seg Neutrophils # Man 14.8 H Lymphocytes # (Manual) 1.0 L Monocytes # (Manual) APTT POC ABG pH POC ABG pCO2 POC ABG pO2 VBG pH Sodium 148 H Potassium Chloride Carbon Dioxide BUN 31 H Creatinine Glucose 314 H POC Glucose 300 H Lactic Acid Calcium 8.1 L Total Bilirubin AST ALT C-Reactive Protein Albumin Triglycerides Amylase Lipase Urine WBC (Auto) Vancomycin Trough 12/19/17 12/19/17 12/19/17 05:15 05:41 07:57 WBC RBC Hgb Hct MCV MCH MCHC RDW Plt Count Seg Neuts % (Manual) Lymphocytes % (Manual) Monocytes % (Manual) Nucleated RBC % Seg Neutrophils # Man Lymphocytes # (Manual) Monocytes # (Manual) APTT POC ABG pH 7.507 H POC ABG pCO2 POC ABG pO2 VBG pH Sodium Potassium Chloride Carbon Dioxide BUN Creatinine Glucose POC Glucose 331 H 307 H Lactic Acid Calcium Total Bilirubin AST ALT C-Reactive Protein Albumin Triglycerides Amylase Lipase Urine WBC (Auto) Vancomycin Trough 12/19/17 12/19/17 12/19/17 10:21 14:48 17:59 WBC RBC Hgb Hct MCV MCH MCHC RDW Plt Count Seg Neuts % (Manual) Lymphocytes % (Manual) Monocytes % (Manual) Nucleated RBC % Seg Neutrophils # Man Lymphocytes # (Manual) Monocytes # (Manual) APTT POC ABG pH POC ABG pCO2 POC ABG pO2 VBG pH Sodium Potassium Chloride Carbon Dioxide BUN Creatinine Glucose POC Glucose 358 H 327 H 355 H Lactic Acid Calcium Total Bilirubin AST ALT C-Reactive Protein Albumin Triglycerides Amylase Lipase Urine WBC (Auto) Vancomycin Trough 12/19/17 12/20/17 12/20/17 21:38 02:21 03:42 WBC RBC Hgb Hct MCV MCH MCHC RDW Plt Count Seg Neuts % (Manual) Lymphocytes % (Manual) Monocytes % (Manual) Nucleated RBC % Seg Neutrophils # Man Lymphocytes # (Manual) Monocytes # (Manual) APTT POC ABG pH 7.494 H POC ABG pCO2 POC ABG pO2 VBG pH Sodium Potassium Chloride Carbon Dioxide BUN Creatinine Glucose POC Glucose 329 H 354 H Lactic Acid Calcium Total Bilirubin AST ALT C-Reactive Protein Albumin Triglycerides Amylase Lipase Urine WBC (Auto) Vancomycin Trough 12/20/17 12/20/17 12/20/17 04:08 04:08 04:08 WBC 22.7 H RBC 3.26 L Hgb 10.6 L Hct 32.9 L MCV 101 H MCH 33 H MCHC RDW Plt Count 78 L Seg Neuts % (Manual) 80.0 H Lymphocytes % (Manual) 6.0 L Monocytes % (Manual) Nucleated RBC % Seg Neutrophils # Man 18.2 H Lymphocytes # (Manual) Monocytes # (Manual) APTT POC ABG pH POC ABG pCO2 POC ABG pO2 VBG pH Sodium Potassium Chloride Carbon Dioxide 31 H BUN 30 H Creatinine 0.6 L Glucose 365 H POC Glucose Lactic Acid Calcium Total Bilirubin AST ALT C-Reactive Protein Albumin Triglycerides 981 H Amylase Lipase Urine WBC (Auto) Vancomycin Trough 12/20/17 12/20/17 12/20/17 05:15 10:47 13:40 WBC RBC Hgb Hct MCV MCH MCHC RDW Plt Count Seg Neuts % (Manual) Lymphocytes % (Manual) Monocytes % (Manual) Nucleated RBC % Seg Neutrophils # Man Lymphocytes # (Manual) Monocytes # (Manual) APTT POC ABG pH POC ABG pCO2 POC ABG pO2 VBG pH Sodium Potassium Chloride Carbon Dioxide BUN Creatinine Glucose POC Glucose 342 H 330 H Lactic Acid Calcium Total Bilirubin AST ALT C-Reactive Protein 7.10 H Albumin Triglycerides Amylase Lipase Urine WBC (Auto) Vancomycin Trough 12/20/17 12/20/17 12/20/17 13:40 14:52 16:55 WBC RBC Hgb Hct MCV MCH MCHC RDW Plt Count Seg Neuts % (Manual) Lymphocytes % (Manual) Monocytes % (Manual) Nucleated RBC % Seg Neutrophils # Man Lymphocytes # (Manual) Monocytes # (Manual) APTT POC ABG pH 7.484 H POC ABG pCO2 POC ABG pO2 VBG pH Sodium Potassium Chloride Carbon Dioxide BUN Creatinine Glucose POC Glucose 293 H Lactic Acid Calcium Total Bilirubin AST ALT C-Reactive Protein Albumin Triglycerides 1042 H Amylase Lipase Urine WBC (Auto) Vancomycin Trough 12/20/17 12/20/17 12/21/17 18:00 21:58 02:05 WBC RBC Hgb Hct MCV MCH MCHC RDW Plt Count Seg Neuts % (Manual) Lymphocytes % (Manual) Monocytes % (Manual) Nucleated RBC % Seg Neutrophils # Man Lymphocytes # (Manual) Monocytes # (Manual) APTT POC ABG pH POC ABG pCO2 POC ABG pO2 VBG pH Sodium Potassium Chloride Carbon Dioxide BUN Creatinine Glucose POC Glucose 268 H 272 H 229 H Lactic Acid Calcium Total Bilirubin AST ALT C-Reactive Protein Albumin Triglycerides Amylase Lipase Urine WBC (Auto) Vancomycin Trough 12/21/17 12/21/17 12/21/17 03:59 06:23 08:57 WBC RBC Hgb Hct MCV MCH MCHC RDW Plt Count Seg Neuts % (Manual) Lymphocytes % (Manual) Monocytes % (Manual) Nucleated RBC % Seg Neutrophils # Man Lymphocytes # (Manual) Monocytes # (Manual) APTT POC ABG pH 7.474 H POC ABG pCO2 POC ABG pO2 71 L VBG pH Sodium Potassium Chloride Carbon Dioxide BUN Creatinine Glucose POC Glucose 182 H 217 H Lactic Acid Calcium Total Bilirubin AST ALT C-Reactive Protein Albumin Triglycerides Amylase Lipase Urine WBC (Auto) Vancomycin Trough 12/21/17 12/21/17 12/21/17 13:59 18:00 21:20 WBC RBC Hgb Hct MCV MCH MCHC RDW Plt Count Seg Neuts % (Manual) Lymphocytes % (Manual) Monocytes % (Manual) Nucleated RBC % Seg Neutrophils # Man Lymphocytes # (Manual) Monocytes # (Manual) APTT POC ABG pH POC ABG pCO2 POC ABG pO2 VBG pH Sodium Potassium Chloride Carbon Dioxide BUN Creatinine Glucose POC Glucose 185 H 176 H 187 H Lactic Acid Calcium Total Bilirubin AST ALT C-Reactive Protein Albumin Triglycerides Amylase Lipase Urine WBC (Auto) Vancomycin Trough 12/21/17 12/22/17 12/22/17 23:48 04:39 05:30 WBC RBC Hgb Hct MCV MCH MCHC RDW Plt Count Seg Neuts % (Manual) Lymphocytes % (Manual) Monocytes % (Manual) Nucleated RBC % Seg Neutrophils # Man Lymphocytes # (Manual) Monocytes # (Manual) APTT POC ABG pH 7.528 H POC ABG pCO2 POC ABG pO2 63 L VBG pH Sodium Potassium Chloride Carbon Dioxide BUN Creatinine Glucose POC Glucose 126 H 117 H Lactic Acid Calcium Total Bilirubin AST ALT C-Reactive Protein Albumin Triglycerides Amylase Lipase Urine WBC (Auto) Vancomycin Trough 12/22/17 12/22/17 12/22/17 09:12 10:34 10:34 WBC 29.5 H RBC 3.44 L Hgb 11.2 L Hct 34.2 L MCV 99 H MCH 33 H MCHC RDW 13.1 L Plt Count 97 L Seg Neuts % (Manual) 88.0 H Lymphocytes % (Manual) 5.0 L Monocytes % (Manual) Nucleated RBC % Seg Neutrophils # Man 26.0 H Lymphocytes # (Manual) Monocytes # (Manual) APTT POC ABG pH POC ABG pCO2 POC ABG pO2 VBG pH Sodium 146 H Potassium 3.1 L Chloride Carbon Dioxide BUN 25 H Creatinine 0.7 L Glucose 146 H POC Glucose 168 H Lactic Acid Calcium 8.1 L Total Bilirubin AST ALT C-Reactive Protein Albumin Triglycerides Amylase Lipase Urine WBC (Auto) Vancomycin Trough 12/22/17 12/22/17 12/22/17 14:51 17:21 21:43 WBC RBC Hgb Hct MCV MCH MCHC RDW Plt Count Seg Neuts % (Manual) Lymphocytes % (Manual) Monocytes % (Manual) Nucleated RBC % Seg Neutrophils # Man Lymphocytes # (Manual) Monocytes # (Manual) APTT POC ABG pH POC ABG pCO2 POC ABG pO2 VBG pH Sodium Potassium Chloride Carbon Dioxide BUN Creatinine Glucose POC Glucose 125 H 110 H 153 H Lactic Acid Calcium Total Bilirubin AST ALT C-Reactive Protein Albumin Triglycerides Amylase Lipase Urine WBC (Auto) Vancomycin Trough 12/23/17 12/23/17 12/23/17 04:33 05:28 09:25 WBC 31.4 H RBC 3.05 L Hgb 9.8 L Hct 30.2 L MCV 99 H MCH MCHC RDW 12.9 L Plt Count 101 L Seg Neuts % (Manual) 97 H Lymphocytes % (Manual) 2 L Monocytes % (Manual) Nucleated RBC % Seg Neutrophils # Man 31.1 H Lymphocytes # (Manual) 0.5 L Monocytes # (Manual) APTT POC ABG pH 7.573 H POC ABG pCO2 31.0 L POC ABG pO2 63 L VBG pH Sodium Potassium Chloride Carbon Dioxide BUN Creatinine Glucose POC Glucose 124 H Lactic Acid Calcium Total Bilirubin AST ALT C-Reactive Protein Albumin Triglycerides Amylase Lipase Urine WBC (Auto) Vancomycin Trough 12/23/17 12/23/17 12/23/17 09:25 10:08 14:20 WBC RBC Hgb Hct MCV MCH MCHC RDW Plt Count Seg Neuts % (Manual) Lymphocytes % (Manual) Monocytes % (Manual) Nucleated RBC % Seg Neutrophils # Man Lymphocytes # (Manual) Monocytes # (Manual) APTT POC ABG pH POC ABG pCO2 POC ABG pO2 VBG pH Sodium Potassium 3.1 L Chloride Carbon Dioxide BUN Creatinine 0.6 L Glucose 169 H POC Glucose 171 H 211 H Lactic Acid Calcium 7.9 L Total Bilirubin AST ALT C-Reactive Protein Albumin Triglycerides Amylase Lipase Urine WBC (Auto) Vancomycin Trough 12/23/17 12/23/17 12/24/17 18:59 21:49 01:47 WBC RBC Hgb Hct MCV MCH MCHC RDW Plt Count Seg Neuts % (Manual) Lymphocytes % (Manual) Monocytes % (Manual) Nucleated RBC % Seg Neutrophils # Man Lymphocytes # (Manual) Monocytes # (Manual) APTT POC ABG pH POC ABG pCO2 POC ABG pO2 VBG pH Sodium Potassium Chloride Carbon Dioxide BUN Creatinine Glucose POC Glucose 175 H 146 H 143 H Lactic Acid Calcium Total Bilirubin AST ALT C-Reactive Protein Albumin Triglycerides Amylase Lipase Urine WBC (Auto) Vancomycin Trough 12/24/17 12/24/17 12/24/17 05:40 10:12 13:12 WBC RBC Hgb Hct MCV MCH MCHC RDW Plt Count Seg Neuts % (Manual) Lymphocytes % (Manual) Monocytes % (Manual) Nucleated RBC % Seg Neutrophils # Man Lymphocytes # (Manual) Monocytes # (Manual) APTT POC ABG pH 7.558 H POC ABG pCO2 27.6 L POC ABG pO2 71 L VBG pH Sodium Potassium Chloride Carbon Dioxide BUN Creatinine Glucose POC Glucose 118 H 111 H Lactic Acid Calcium Total Bilirubin AST ALT C-Reactive Protein Albumin Triglycerides Amylase Lipase Urine WBC (Auto) Vancomycin Trough 12/24/17 12/24/17 12/24/17 16:26 20:44 21:49 WBC RBC Hgb Hct MCV MCH MCHC RDW Plt Count Seg Neuts % (Manual) Lymphocytes % (Manual) Monocytes % (Manual) Nucleated RBC % Seg Neutrophils # Man Lymphocytes # (Manual) Monocytes # (Manual) APTT POC ABG pH POC ABG pCO2 POC ABG pO2 VBG pH Sodium Potassium Chloride Carbon Dioxide BUN Creatinine Glucose POC Glucose 113 H 124 H 115 H Lactic Acid Calcium Total Bilirubin AST ALT C-Reactive Protein Albumin Triglycerides Amylase Lipase Urine WBC (Auto) Vancomycin Trough 12/24/17 12/25/17 12/25/17 Unknown 02:26 03:38 WBC RBC Hgb Hct MCV MCH MCHC RDW Plt Count Seg Neuts % (Manual) Lymphocytes % (Manual) Monocytes % (Manual) Nucleated RBC % Seg Neutrophils # Man Lymphocytes # (Manual) Monocytes # (Manual) APTT POC ABG pH 7.503 H POC ABG pCO2 POC ABG pO2 66 L VBG pH Sodium Potassium 3.0 L Chloride Carbon Dioxide BUN Creatinine 0.5 L Glucose 166 H POC Glucose 106 H Lactic Acid Calcium 7.8 L Total Bilirubin AST ALT C-Reactive Protein Albumin Triglycerides Amylase Lipase Urine WBC (Auto) Vancomycin Trough 12/25/17 12/25/17 12/25/17 04:58 12:58 15:06 WBC RBC Hgb Hct MCV MCH MCHC RDW Plt Count Seg Neuts % (Manual) Lymphocytes % (Manual) Monocytes % (Manual) Nucleated RBC % Seg Neutrophils # Man Lymphocytes # (Manual) Monocytes # (Manual) APTT POC ABG pH POC ABG pCO2 POC ABG pO2 VBG pH Sodium Potassium Chloride Carbon Dioxide BUN Creatinine Glucose POC Glucose 113 H 118 H Lactic Acid Calcium Total Bilirubin AST ALT C-Reactive Protein Albumin Triglycerides Amylase Lipase Urine WBC (Auto) Vancomycin Trough 22.5 H 12/25/17 12/25/17 12/25/17 17:59 21:33 Unknown WBC 20.5 H RBC 2.75 L Hgb 9.1 L Hct 27.1 L MCV 99 H MCH 33 H MCHC RDW Plt Count 126 L Seg Neuts % (Manual) 89.0 H Lymphocytes % (Manual) 6.0 L Monocytes % (Manual) Nucleated RBC % Seg Neutrophils # Man 18.2 H Lymphocytes # (Manual) Monocytes # (Manual) APTT POC ABG pH POC ABG pCO2 POC ABG pO2 VBG pH Sodium Potassium Chloride Carbon Dioxide BUN Creatinine Glucose POC Glucose 145 H 167 H Lactic Acid Calcium Total Bilirubin AST ALT C-Reactive Protein Albumin Triglycerides Amylase Lipase Urine WBC (Auto) Vancomycin Trough 12/25/17 12/26/17 12/26/17 Unknown 02:26 05:29 WBC RBC Hgb Hct MCV MCH MCHC RDW Plt Count Seg Neuts % (Manual) Lymphocytes % (Manual) Monocytes % (Manual) Nucleated RBC % Seg Neutrophils # Man Lymphocytes # (Manual) Monocytes # (Manual) APTT POC ABG pH POC ABG pCO2 POC ABG pO2 VBG pH Sodium Potassium 2.8 L* Chloride Carbon Dioxide BUN Creatinine 0.6 L Glucose POC Glucose 167 H 216 H Lactic Acid Calcium 7.4 L Total Bilirubin AST ALT C-Reactive Protein Albumin Triglycerides Amylase Lipase Urine WBC (Auto) Vancomycin Trough 12/26/17 10:21 WBC RBC Hgb Hct MCV MCH MCHC RDW Plt Count Seg Neuts % (Manual) Lymphocytes % (Manual) Monocytes % (Manual) Nucleated RBC % Seg Neutrophils # Man Lymphocytes # (Manual) Monocytes # (Manual) APTT POC ABG pH POC ABG pCO2 POC ABG pO2 VBG pH Sodium Potassium Chloride Carbon Dioxide BUN Creatinine Glucose POC Glucose 164 H Lactic Acid Calcium Total Bilirubin AST ALT C-Reactive Protein Albumin Triglycerides Amylase Lipase Urine WBC (Auto) Vancomycin Trough
[2017-12-26 11:30] LABS: BUN/Creatinine Ratio 22; Blood Urea Nitrogen 11 mg/dL (9-20); Calcium 7.8 mg/dL (8.4-10.2)
--- NOTE | 2017-12-26 13:53 | XRay Report ---
AP CHEST: HISTORY: Fever, hypoxia The endotracheal tube, nasogastric tube and right arm PICC remain in good position. Heart size and pulmonary vascularity are stable at the upper limits of normal. There is patchy infiltrate in the peripheral right lung which could represent pneumonia. Trace bilateral pleural effusions are suspected. No pneumothorax. IMPRESSION: Right lung infiltrate not significantly changed since yesterday's exam at 1027 hrs.
[2017-12-26] MEDS ORDERED: LASIX ONE (15:23)
--- NOTE | 2017-12-26 15:55 | Progress Note ---
Assessment and Plan Assessment: 1) Severe Sepsis: still fever and leukocytosis. Etiology most likely complicated H influenza bacteremia +/- pneumonia +/- ? intrabdominal source+/- DTs?. Not better after 7 days of broad spectrum abx -blood cx negatige -US legs No DVT -Abd US negative 2) H influenza bacteremia: likely from pneumonia. TTE neg 3) Complicated Bilateral pneumonia: etiology H influenza - should r/o empyema or abscess -CXR showed kimberlee pneumonia -Sputum 12/20 showed usual resp angelika -HIV neg -JERMAIN and ANCA negative -C3/C4 normal -CRP=7.1 -Strep pneumoniae not detected -Legionella not detected -tracheal aspirate - usual resp angelika 4) Acute respiratory failure: intubated 5) Thrombocytopenia : from sepsis, better. 6) Elevated LFTs: from sepsis, ETOH. Viral hepatitis all negative. 7) DM: uncontrolled Plan: -consider chest and abdominal CT in view of persistent fever -continue cefepime and flagyl - day 7 -continue zyvox - day2 Thank you for your consultation, will follow up with you. Mariel Corrigan MD Infectious Diseases Specialist [facility] [id number] [phone] O [phone] Subjective Date of service: 12/26/17 Principal diagnosis: ARDS Interval history: Remains on the vent now on CPAP, anxious agitated, tmax 101.3. Microbiology: Blood cultures: 12/12 H influenza 1 of 4 bottles 12/15 neg 12/17 neg 12/23 ngtd Respiratory cultures: 12/13 - usual resp angelika 12/20 tracheal asp - usual resp angelika Current Antimicrobials: zyvox 11/27 cefepime 12/20 flagyl 12/20 Previous Antimicrobials: Zosyn Levaquin 12/13 Clindamycin 12/17 vanco 12/17 Objective - Constitutional Vitals: Vital Signs Temp Pulse Resp BP Pulse Ox 97.9 F 101 H 20 115/60 90 12/26/17 15:32 12/26/17 15:30 12/26/17 15:30 12/26/17 15:30 12/26/17 15:30 Temperature -Last 24 Hours Temperature 97.9 F Temperature 99.1 F Temperature 101.2 F Temperature 99.9 F Temperature 99.8 F Temperature 100.2 F Temperature 100.2 F Temperature 99.4 F - Labs CBC & Chem 7: 12/25/17 Unknown 12/26/17 Unknown Labs: Abnormal lab results 12/24/17 12/25/17 12/25/17 Range/Units Unknown 17:59 21:33 Potassium 3.0 L (3.6-5.0) mmol/L Creatinine 0.5 L (0.8-1.5) mg/dL Glucose 166 H (75-100) mg/dL POC Glucose 145 H 167 H (70-105) Calcium 7.8 L (8.4-10.2) mg/dL 12/26/17 12/26/17 12/26/17 Range/Units 02:26 05:29 10:21 Potassium (3.6-5.0) mmol/L Creatinine (0.8-1.5) mg/dL Glucose (75-100) mg/dL POC Glucose 167 H 216 H 164 H (70-105) Calcium (8.4-10.2) mg/dL 12/26/17 12/26/17 Range/Units 14:30 Unknown Potassium 3.0 L (3.6-5.0) mmol/L Creatinine 0.5 L (0.8-1.5) mg/dL Glucose 166 H (75-100) mg/dL POC Glucose 157 H (70-105) Calcium 7.8 L (8.4-10.2) mg/dL
[2017-12-26] MEDS ORDERED: LASIX IV ONE (16:00)
[2017-12-26] MEDS: ATIVAN IV PRN (16:28)
[2017-12-26] MEDS ORDERED: ATIVAN IV ONE (17:02)
[2017-12-26] MEDS ORDERED: POTASSIUM CHLORIDE FEEDTUBE ONE (17:45)
[2017-12-27] MEDS: DUONEB *Not for PRN Use IH SCH ×4 (01:56→19:44)
[2017-12-27] MEDS: HumaLOG SUB-Q SCH ×6 (05:08→23:21)
[2017-12-27] MEDS: LIBRIUM PO SCH ×4 (05:11→23:46)
[2017-12-27] MEDS: HEPARIN SUB-Q SCH ×3 (05:11→23:46)
[2017-12-27] MEDS: DILAUDID PO SCH (05:11)
[2017-12-27] MEDS: MAXIPIME 2 GM in NACL 0.9% 20 ML IV SCH ×3 (05:11→22:01)
[2017-12-27] MEDS: FLAGYL 500 MG/100 ML 500 MG/100 ML BAG IV SCH ×3 (05:12→22:30)
[2017-12-27 05:39] LABS: Hematocrit 27.6 % (35.5-45.6); Hemoglobin 9.3 gm/dl (11.8-15.2); Mean Corpuscular HGB Conc 34 % (32-34); Mean Corpuscular Hemoglobin 33 pg (28-32); Mean Corpuscular Volume 98 fl (84-94); Platelet Count 181 K/mm3 (140-440); Red Blood Count 2.83 M/mm3 (3.65-5.03); Red Cell Distribution Width 13.7 % (13.2-15.2)
[2017-12-27 06:00] LABS: BUN/Creatinine Ratio 12; Blood Urea Nitrogen 7 mg/dL (9-20); Calcium 8.1 mg/dL (8.4-10.2); Hemolysis Index 4
[2017-12-27 07:29] LABS: Band Neutrophils # (Manual) 1.6 K/mm3; Basophils % (Manual) 0 % (0.0-1.8); Total Cells Counted 100
[2017-12-27 07:30] LABS: Anisocytosis 1+; Stomatocytes 1+
[2017-12-27] MEDS ORDERED: POTASSIUM CHLORIDE FEEDTUBE SCH (09:00)
[2017-12-27] MEDS ORDERED: MAGNESIUM SULFATE 4GM/100ML 4 GM/100 ML BAG IV ONE (09:00)
--- NOTE | 2017-12-27 09:37 | Progress Note ---
Assessment and Plan 47 y/o male with acute respiratory failure thought secondary to H. Flu now with H. Flu bacteremia, sepsis and persistent fevers. 1. Self extubated. Respiratory status is still tenuous, given anxiety and underlying lung disease (pneumonia). Volume removal I feel has helped. Will hold today given low K levels. Patient now suffering from delirium. Will add scheduled haldol and continue Librium as well. Discussed with and she understands. Agree with ID that patient needs CT, at this time afraid to transport as respiratory status may worsen with transport at this time. Very well could have an effusion/empyema. May try to put the ultrasound on him to assess later this afternoon. 2. Abx therapy per ID 3. Aggressive replacement of K. Will repeat later tonight and give more this evening. Will likely need lasix again tomorrow. 4. Continue ICU monitoring given current respiratory status. CCT 31 minutes. Subjective Date of service: 12/27/17 Principal diagnosis: ARDS Interval history: Self extubated yesterday afternoon. Required bipap last nigh and remains on it this am. CXR is stable but still shows right lower lobe airspace disease. Net negative but potassium is very low this morning. at bedside. Patient is awake but delirious and hallucinates. Objective Vital Signs - 12hr 12/26/17 12/26/17 12/27/17 22:00 23:00 00:00 Temperature 99.1 F Pulse Rate 117 H 114 H 102 H Pulse Rate [ Anterior Bilateral Throughout] Pulse Rate [ 110 H From Monitor] Pulse Rate [ 110 H Left Dorsalis Pedis] Pulse Rate [ 110 H Left Radial] Pulse Rate [ 110 H Right Dorsalis Pedis] Pulse Rate [ 110 H Right Radial] Respiratory 59 H 50 H 58 H Rate Respiratory Rate [Anterior Bilateral Throughout] Blood Pressure 131/68 126/70 130/64 O2 Sat by Pulse 92 92 83 L Oximetry 12/27/17 12/27/17 12/27/17 01:00 01:56 02:00 Temperature Pulse Rate 101 H 97 H Pulse Rate [ 97 H Anterior Bilateral Throughout] Pulse Rate [ From Monitor] Pulse Rate [ Left Dorsalis Pedis] Pulse Rate [ Left Radial] Pulse Rate [ Right Dorsalis Pedis] Pulse Rate [ Right Radial] Respiratory 60 H 33 H Rate Respiratory 21 Rate [Anterior Bilateral Throughout] Blood Pressure 119/63 109/70 O2 Sat by Pulse 75 L 87 Oximetry 12/27/17 12/27/17 12/27/17 02:11 02:24 03:00 Temperature Pulse Rate 104 H 104 H Pulse Rate [ 99 H Anterior Bilateral Throughout] Pulse Rate [ From Monitor] Pulse Rate [ Left Dorsalis Pedis] Pulse Rate [ Left Radial] Pulse Rate [ Right Dorsalis Pedis] Pulse Rate [ Right Radial] Respiratory 33 H 29 H Rate Respiratory 26 H Rate [Anterior Bilateral Throughout] Blood Pressure 142/84 151/79 O2 Sat by Pulse 90 92 Oximetry 12/27/17 12/27/17 12/27/17 04:00 05:00 06:00 Temperature 99.0 F Pulse Rate 110 H 111 H 110 H Pulse Rate [ Anterior Bilateral Throughout] Pulse Rate [ 100 H From Monitor] Pulse Rate [ 100 H Left Dorsalis Pedis] Pulse Rate [ 100 H Left Radial] Pulse Rate [ 100 H Right Dorsalis Pedis] Pulse Rate [ 100 H Right Radial] Respiratory 28 H 43 H 47 H Rate Respiratory Rate [Anterior Bilateral Throughout] Blood Pressure 145/81 140/72 179/76 O2 Sat by Pulse 94 90 94 Oximetry 12/27/17 12/27/17 12/27/17 06:03 06:11 07:00 Temperature Pulse Rate 112 H 108 H Pulse Rate [ Anterior Bilateral Throughout] Pulse Rate [ From Monitor] Pulse Rate [ Left Dorsalis Pedis] Pulse Rate [ Left Radial] Pulse Rate [ Right Dorsalis Pedis] Pulse Rate [ Right Radial] Respiratory 44 H 36 H 42 H Rate Respiratory Rate [Anterior Bilateral Throughout] Blood Pressure 164/82 159/73 O2 Sat by Pulse 94 93 Oximetry 12/27/17 12/27/17 12/27/17 08:00 08:57 09:01 Temperature 101.6 F H Pulse Rate 110 H 112 H Pulse Rate [ 113 H Anterior Bilateral Throughout] Pulse Rate [ 107 H From Monitor] Pulse Rate [ Left Dorsalis Pedis] Pulse Rate [ Left Radial] Pulse Rate [ Right Dorsalis Pedis] Pulse Rate [ Right Radial] Respiratory 49 H 36 H Rate Respiratory 32 H Rate [Anterior Bilateral Throughout] Blood Pressure 154/78 161/81 O2 Sat by Pulse 94 84 92 Oximetry Constitutional: other (intubated, sedated) Eyes: non-icteric ENT: oropharynx moist Neck: supple Effort: normal Ascultation: Right: rales, Bilateral: diminished breath sounds, other (coarse BS bilaterally) Percussion: Bilateral: not dull Tactile fremitus: Bilateral: normal Cardiovascular: regular rate and rhythm, other (tachycardic) Gastrointestinal: normoactive bowel sounds, soft, non-tender, non-distended, other (obese) Integumentary: normal Extremities: no cyanosis, no edema, pink and warm Neurologic: normal mental status (at this time of examination) Psychiatric: other (not able to assess) CBC and BMP: 12/27/17 05:20 12/27/17 05:20 ABG, PT/INR, D-dimer: ABG POC ABG pH 7.503 (7.35-7.45) H 12/25/17 03:38 POC ABG pCO2 35.8 (35-45) 12/25/17 03:38 POC ABG pO2 66 (80-105) L 12/25/17 03:38 POC ABG HCO3 28.1 12/25/17 03:38 POC ABG Total CO2 29 12/25/17 03:38 POC ABG O2 Sat 95 12/25/17 03:38 PT/INR, D-dimer PT 14.9 Sec. (12.2-14.9) 12/15/17 04:05 INR 1.11 (0.87-1.13) 12/15/17 04:05 Abnormal lab findings: Abnormal Labs 12/12/17 12/12/17 12/12/17 18:57 19:02 19:02 WBC RBC Hgb Hct MCV 96 H MCH 34 H MCHC 35 H RDW Plt Count 46 L Seg Neuts % (Manual) 77.0 H Lymphocytes % (Manual) 13.0 L Monocytes % (Manual) Nucleated RBC % Seg Neutrophils # Man Lymphocytes # (Manual) 0.9 L Monocytes # (Manual) Eosinophils # (Manual) APTT POC ABG pH POC ABG pCO2 POC ABG pO2 VBG pH Sodium Potassium Chloride Carbon Dioxide BUN Creatinine Glucose POC Glucose 321 H Lactic Acid 4.00 H* Calcium Total Bilirubin AST ALT C-Reactive Protein Albumin Triglycerides Amylase Lipase Urine WBC (Auto) Vancomycin Trough 12/12/17 12/12/17 12/12/17 19:02 19:18 20:55 WBC RBC Hgb Hct MCV MCH MCHC RDW Plt Count Seg Neuts % (Manual) Lymphocytes % (Manual) Monocytes % (Manual) Nucleated RBC % Seg Neutrophils # Man Lymphocytes # (Manual) Monocytes # (Manual) Eosinophils # (Manual) APTT POC ABG pH POC ABG pCO2 POC ABG pO2 VBG pH 7.472 H Sodium 124 L Potassium Chloride 80.0 L Carbon Dioxide 20 L BUN Creatinine Glucose 382 H POC Glucose 283 H Lactic Acid Calcium 8.1 L Total Bilirubin 4.60 H AST 93 H ALT 112 H C-Reactive Protein Albumin 2.5 L Triglycerides Amylase Lipase Urine WBC (Auto) Vancomycin Trough 12/12/17 12/13/17 12/13/17 21:41 00:45 01:29 WBC RBC Hgb Hct MCV MCH MCHC RDW Plt Count Seg Neuts % (Manual) Lymphocytes % (Manual) Monocytes % (Manual) Nucleated RBC % Seg Neutrophils # Man Lymphocytes # (Manual) Monocytes # (Manual) Eosinophils # (Manual) APTT POC ABG pH POC ABG pCO2 POC ABG pO2 VBG pH Sodium Potassium Chloride Carbon Dioxide BUN Creatinine Glucose POC Glucose Lactic Acid 4.20 H* 2.70 H* 3.30 H* Calcium Total Bilirubin AST ALT C-Reactive Protein Albumin Triglycerides Amylase Lipase Urine WBC (Auto) Vancomycin Trough 12/13/17 12/13/17 12/13/17 02:19 03:44 05:58 WBC RBC Hgb Hct MCV 97 H MCH 34 H MCHC 35 H RDW Plt Count 41 L Seg Neuts % (Manual) Lymphocytes % (Manual) 8.0 L Monocytes % (Manual) 8.0 H Nucleated RBC % Seg Neutrophils # Man Lymphocytes # (Manual) 0.6 L Monocytes # (Manual) Eosinophils # (Manual) APTT POC ABG pH 7.334 L POC ABG pCO2 POC ABG pO2 43 L VBG pH Sodium Potassium Chloride Carbon Dioxide BUN Creatinine Glucose POC Glucose Lactic Acid 2.60 H* Calcium Total Bilirubin AST ALT C-Reactive Protein Albumin Triglycerides Amylase Lipase Urine WBC (Auto) Vancomycin Trough 12/13/17 12/13/17 12/13/17 05:58 05:58 05:58 WBC RBC Hgb Hct MCV MCH MCHC RDW Plt Count Seg Neuts % (Manual) Lymphocytes % (Manual) Monocytes % (Manual) Nucleated RBC % Seg Neutrophils # Man Lymphocytes # (Manual) Monocytes # (Manual) Eosinophils # (Manual) APTT POC ABG pH POC ABG pCO2 POC ABG pO2 VBG pH Sodium 132 L D Potassium Chloride 90.0 L Carbon Dioxide 20 L BUN Creatinine Glucose 346 H POC Glucose 298 H Lactic Acid 4.50 H* Calcium 8.2 L Total Bilirubin AST ALT C-Reactive Protein Albumin Triglycerides Amylase Lipase Urine WBC (Auto) Vancomycin Trough 12/13/17 12/13/17 12/13/17 06:27 09:42 11:47 WBC RBC Hgb Hct MCV MCH MCHC RDW Plt Count Seg Neuts % (Manual) Lymphocytes % (Manual) Monocytes % (Manual) Nucleated RBC % Seg Neutrophils # Man Lymphocytes # (Manual) Monocytes # (Manual) Eosinophils # (Manual) APTT POC ABG pH 7.267 L 7.298 L POC ABG pCO2 50.4 H 51.3 H POC ABG pO2 47 L 43 L VBG pH Sodium Potassium Chloride Carbon Dioxide BUN Creatinine Glucose POC Glucose 376 H Lactic Acid Calcium Total Bilirubin AST ALT C-Reactive Protein Albumin Triglycerides Amylase Lipase Urine WBC (Auto) Vancomycin Trough 12/13/17 12/13/17 12/13/17 12:03 13:47 13:47 WBC RBC Hgb Hct MCV MCH MCHC RDW Plt Count Seg Neuts % (Manual) Lymphocytes % (Manual) Monocytes % (Manual) Nucleated RBC % Seg Neutrophils # Man Lymphocytes # (Manual) Monocytes # (Manual) Eosinophils # (Manual) APTT POC ABG pH 7.264 L POC ABG pCO2 54.9 H POC ABG pO2 55 L VBG pH Sodium Potassium Chloride Carbon Dioxide BUN Creatinine Glucose POC Glucose Lactic Acid 2.80 H* Calcium Total Bilirubin AST ALT C-Reactive Protein Albumin Triglycerides Amylase 20 L Lipase 9 L Urine WBC (Auto) Vancomycin Trough 12/13/17 12/13/17 12/13/17 15:36 17:39 21:47 WBC RBC Hgb Hct MCV MCH MCHC RDW Plt Count Seg Neuts % (Manual) Lymphocytes % (Manual) Monocytes % (Manual) Nucleated RBC % Seg Neutrophils # Man Lymphocytes # (Manual) Monocytes # (Manual) Eosinophils # (Manual) APTT POC ABG pH 7.229 L 7.225 L POC ABG pCO2 60.9 H 66.3 H POC ABG pO2 42 L 41 L VBG pH Sodium Potassium Chloride Carbon Dioxide BUN Creatinine Glucose POC Glucose 289 H Lactic Acid Calcium Total Bilirubin AST ALT C-Reactive Protein Albumin Triglycerides Amylase Lipase Urine WBC (Auto) Vancomycin Trough 12/13/17 12/14/17 12/14/17 22:19 02:03 05:16 WBC RBC Hgb Hct MCV MCH MCHC RDW Plt Count Seg Neuts % (Manual) Lymphocytes % (Manual) Monocytes % (Manual) Nucleated RBC % Seg Neutrophils # Man Lymphocytes # (Manual) Monocytes # (Manual) Eosinophils # (Manual) APTT POC ABG pH 7.247 L POC ABG pCO2 61.2 H POC ABG pO2 53 L VBG pH Sodium Potassium Chloride Carbon Dioxide BUN Creatinine Glucose POC Glucose 274 H 295 H Lactic Acid Calcium Total Bilirubin AST ALT C-Reactive Protein Albumin Triglycerides Amylase Lipase Urine WBC (Auto) Vancomycin Trough 12/14/17 12/14/17 12/14/17 05:32 12:04 16:22 WBC RBC Hgb Hct MCV MCH MCHC RDW Plt Count Seg Neuts % (Manual) Lymphocytes % (Manual) Monocytes % (Manual) Nucleated RBC % Seg Neutrophils # Man Lymphocytes # (Manual) Monocytes # (Manual) Eosinophils # (Manual) APTT POC ABG pH POC ABG pCO2 POC ABG pO2 VBG pH Sodium Potassium Chloride Carbon Dioxide BUN Creatinine Glucose POC Glucose 230 H 241 H 231 H Lactic Acid Calcium Total Bilirubin AST ALT C-Reactive Protein Albumin Triglycerides Amylase Lipase Urine WBC (Auto) Vancomycin Trough 12/14/17 12/15/17 12/15/17 21:29 02:29 03:25 WBC RBC Hgb Hct MCV MCH MCHC RDW Plt Count Seg Neuts % (Manual) Lymphocytes % (Manual) Monocytes % (Manual) Nucleated RBC % Seg Neutrophils # Man Lymphocytes # (Manual) Monocytes # (Manual) Eosinophils # (Manual) APTT POC ABG pH 7.330 L POC ABG pCO2 55.3 H POC ABG pO2 59 L VBG pH Sodium Potassium Chloride Carbon Dioxide BUN Creatinine Glucose POC Glucose 258 H 246 H Lactic Acid Calcium Total Bilirubin AST ALT C-Reactive Protein Albumin Triglycerides Amylase Lipase Urine WBC (Auto) Vancomycin Trough 12/15/17 12/15/17 12/15/17 04:05 04:05 04:05 WBC 15.0 H RBC 3.40 L Hgb 11.3 L D Hct 33.8 L D MCV 100 H MCH 33 H MCHC RDW Plt Count 48 L Seg Neuts % (Manual) Lymphocytes % (Manual) 3.0 L Monocytes % (Manual) Nucleated RBC % 2.0 H Seg Neutrophils # Man Lymphocytes # (Manual) 0.5 L Monocytes # (Manual) 0.9 H Eosinophils # (Manual) APTT 20.9 L POC ABG pH POC ABG pCO2 POC ABG pO2 VBG pH Sodium Potassium Chloride Carbon Dioxide BUN 27 H Creatinine Glucose 258 H POC Glucose Lactic Acid Calcium 8.1 L Total Bilirubin AST ALT C-Reactive Protein Albumin Triglycerides Amylase Lipase Urine WBC (Auto) Vancomycin Trough 12/15/17 12/15/17 12/15/17 05:32 11:17 14:59 WBC RBC Hgb Hct MCV MCH MCHC RDW Plt Count Seg Neuts % (Manual) Lymphocytes % (Manual) Monocytes % (Manual) Nucleated RBC % Seg Neutrophils # Man Lymphocytes # (Manual) Monocytes # (Manual) Eosinophils # (Manual) APTT POC ABG pH POC ABG pCO2 POC ABG pO2 VBG pH Sodium Potassium Chloride Carbon Dioxide BUN Creatinine Glucose POC Glucose 247 H 268 H 233 H Lactic Acid Calcium Total Bilirubin AST ALT C-Reactive Protein Albumin Triglycerides Amylase Lipase Urine WBC (Auto) Vancomycin Trough 12/15/17 12/15/17 12/15/17 17:00 18:59 21:37 WBC RBC Hgb Hct MCV MCH MCHC RDW Plt Count Seg Neuts % (Manual) Lymphocytes % (Manual) Monocytes % (Manual) Nucleated RBC % Seg Neutrophils # Man Lymphocytes # (Manual) Monocytes # (Manual) Eosinophils # (Manual) APTT POC ABG pH POC ABG pCO2 POC ABG pO2 VBG pH Sodium Potassium Chloride Carbon Dioxide BUN Creatinine Glucose POC Glucose 195 H 208 H Lactic Acid Calcium Total Bilirubin AST ALT C-Reactive Protein Albumin Triglycerides Amylase Lipase Urine WBC (Auto) 38.0 H Vancomycin Trough 12/16/17 12/16/17 12/16/17 03:17 03:33 04:18 WBC 16.4 H RBC 3.50 L Hgb 11.3 L Hct 35.4 L MCV 101 H MCH MCHC RDW Plt Count 54 L Seg Neuts % (Manual) Lymphocytes % (Manual) Monocytes % (Manual) Nucleated RBC % Seg Neutrophils # Man Lymphocytes # (Manual) Monocytes # (Manual) Eosinophils # (Manual) APTT POC ABG pH POC ABG pCO2 47.7 H POC ABG pO2 VBG pH Sodium Potassium Chloride Carbon Dioxide BUN Creatinine Glucose POC Glucose 227 H Lactic Acid Calcium Total Bilirubin AST ALT C-Reactive Protein Albumin Triglycerides Amylase Lipase Urine WBC (Auto) Vancomycin Trough 12/16/17 12/16/1718 04:18 05:08 10:01 WBC RBC Hgb Hct MCV MCH MCHC RDW Plt Count Seg Neuts % (Manual) Lymphocytes % (Manual) Monocytes % (Manual) Nucleated RBC % Seg Neutrophils # Man Lymphocytes # (Manual) Monocytes # (Manual) Eosinophils # (Manual) APTT POC ABG pH POC ABG pCO2 POC ABG pO2 VBG pH Sodium 147 H Potassium Chloride 107.4 H Carbon Dioxide BUN 28 H Creatinine Glucose 240 H POC Glucose 227 H 190 H Lactic Acid Calcium 8.3 L Total Bilirubin AST ALT C-Reactive Protein Albumin Triglycerides Amylase Lipase Urine WBC (Auto) Vancomycin Trough 12/16/17 12/16/17 12/16/17 14:15 17:51 21:14 WBC RBC Hgb Hct MCV MCH MCHC RDW Plt Count Seg Neuts % (Manual) Lymphocytes % (Manual) Monocytes % (Manual) Nucleated RBC % Seg Neutrophils # Man Lymphocytes # (Manual) Monocytes # (Manual) Eosinophils # (Manual) APTT POC ABG pH POC ABG pCO2 POC ABG pO2 VBG pH Sodium Potassium Chloride Carbon Dioxide BUN Creatinine Glucose POC Glucose 279 H 272 H 260 H Lactic Acid Calcium Total Bilirubin AST ALT C-Reactive Protein Albumin Triglycerides Amylase Lipase Urine WBC (Auto) Vancomycin Trough 12/17/17 12/17/17 12/17/17 02:41 04:28 04:28 WBC 19.1 H RBC 3.50 L Hgb 11.4 L Hct 35.3 L MCV 101 H MCH 33 H MCHC RDW Plt Count 65 L Seg Neuts % (Manual) Lymphocytes % (Manual) Monocytes % (Manual) Nucleated RBC % Seg Neutrophils # Man Lymphocytes # (Manual) Monocytes # (Manual) Eosinophils # (Manual) APTT POC ABG pH POC ABG pCO2 POC ABG pO2 VBG pH Sodium 153 H Potassium Chloride 111.2 H Carbon Dioxide 31 H BUN 28 H Creatinine Glucose 248 H POC Glucose 300 H Lactic Acid Calcium Total Bilirubin AST ALT C-Reactive Protein Albumin Triglycerides Amylase Lipase Urine WBC (Auto) Vancomycin Trough 12/17/17 12/17/17 12/17/17 05:15 05:38 10:16 WBC RBC Hgb Hct MCV MCH MCHC RDW Plt Count Seg Neuts % (Manual) Lymphocytes % (Manual) Monocytes % (Manual) Nucleated RBC % Seg Neutrophils # Man Lymphocytes # (Manual) Monocytes # (Manual) Eosinophils # (Manual) APTT POC ABG pH POC ABG pCO2 50.3 H POC ABG pO2 120 H VBG pH Sodium Potassium Chloride Carbon Dioxide BUN Creatinine Glucose POC Glucose 231 H 196 H Lactic Acid Calcium Total Bilirubin AST ALT C-Reactive Protein Albumin Triglycerides Amylase Lipase Urine WBC (Auto) Vancomycin Trough 12/17/17 12/17/17 12/17/17 14:22 18:14 21:35 WBC RBC Hgb Hct MCV MCH MCHC RDW Plt Count Seg Neuts % (Manual) Lymphocytes % (Manual) Monocytes % (Manual) Nucleated RBC % Seg Neutrophils # Man Lymphocytes # (Manual) Monocytes # (Manual) Eosinophils # (Manual) APTT POC ABG pH POC ABG pCO2 POC ABG pO2 VBG pH Sodium Potassium Chloride Carbon Dioxide BUN Creatinine Glucose POC Glucose 234 H 215 H 159 H Lactic Acid Calcium Total Bilirubin AST ALT C-Reactive Protein Albumin Triglycerides Amylase Lipase Urine WBC (Auto) Vancomycin Trough 12/18/17 12/18/17 12/18/17 00:53 02:58 06:03 WBC RBC Hgb Hct MCV MCH MCHC RDW Plt Count Seg Neuts % (Manual) Lymphocytes % (Manual) Monocytes % (Manual) Nucleated RBC % Seg Neutrophils # Man Lymphocytes # (Manual) Monocytes # (Manual) Eosinophils # (Manual) APTT POC ABG pH POC ABG pCO2 56.4 H POC ABG pO2 46 L VBG pH Sodium Potassium Chloride Carbon Dioxide BUN Creatinine Glucose POC Glucose 176 H 143 H Lactic Acid Calcium Total Bilirubin AST ALT C-Reactive Protein Albumin Triglycerides Amylase Lipase Urine WBC (Auto) Vancomycin Trough 12/18/17 12/18/17 12/18/17 07:59 09:20 09:20 WBC 27.4 H RBC 3.57 L Hgb 11.4 L Hct MCV 101 H MCH MCHC RDW Plt Count 64 L Seg Neuts % (Manual) Lymphocytes % (Manual) Monocytes % (Manual) Nucleated RBC % Seg Neutrophils # Man Lymphocytes # (Manual) Monocytes # (Manual) Eosinophils # (Manual) APTT POC ABG pH POC ABG pCO2 POC ABG pO2 VBG pH Sodium 152 H Potassium Chloride 107.9 H Carbon Dioxide 34 H BUN 23 H Creatinine 0.7 L Glucose 181 H POC Glucose 197 H Lactic Acid Calcium Total Bilirubin AST ALT C-Reactive Protein Albumin Triglycerides Amylase Lipase Urine WBC (Auto) Vancomycin Trough 12/18/17 12/18/17 12/18/17 10:22 15:03 18:15 WBC RBC Hgb Hct MCV MCH MCHC RDW Plt Count Seg Neuts % (Manual) Lymphocytes % (Manual) Monocytes % (Manual) Nucleated RBC % Seg Neutrophils # Man Lymphocytes # (Manual) Monocytes # (Manual) Eosinophils # (Manual) APTT POC ABG pH POC ABG pCO2 POC ABG pO2 VBG pH Sodium Potassium Chloride Carbon Dioxide BUN Creatinine Glucose POC Glucose 195 H 225 H 238 H Lactic Acid Calcium Total Bilirubin AST ALT C-Reactive Protein Albumin Triglycerides Amylase Lipase Urine WBC (Auto) Vancomycin Trough 12/18/17 12/18/17 12/19/17 18:29 21:53 00:18 WBC RBC Hgb Hct MCV MCH MCHC RDW Plt Count Seg Neuts % (Manual) Lymphocytes % (Manual) Monocytes % (Manual) Nucleated RBC % Seg Neutrophils # Man Lymphocytes # (Manual) Monocytes # (Manual) Eosinophils # (Manual) APTT POC ABG pH 7.476 H POC ABG pCO2 50.4 H POC ABG pO2 158 H VBG pH Sodium Potassium Chloride Carbon Dioxide BUN Creatinine Glucose POC Glucose 231 H 263 H Lactic Acid Calcium Total Bilirubin AST ALT C-Reactive Protein Albumin Triglycerides Amylase Lipase Urine WBC (Auto) Vancomycin Trough 12/19/17 12/19/17 12/19/17 02:09 04:07 04:07 WBC 25.9 H RBC 3.25 L Hgb 10.6 L Hct 32.8 L MCV 101 H MCH 33 H MCHC RDW Plt Count 67 L Seg Neuts % (Manual) Lymphocytes % (Manual) 4.0 L Monocytes % (Manual) Nucleated RBC % Seg Neutrophils # Man 14.8 H Lymphocytes # (Manual) 1.0 L Monocytes # (Manual) Eosinophils # (Manual) APTT POC ABG pH POC ABG pCO2 POC ABG pO2 VBG pH Sodium 148 H Potassium Chloride Carbon Dioxide BUN 31 H Creatinine Glucose 314 H POC Glucose 300 H Lactic Acid Calcium 8.1 L Total Bilirubin AST ALT C-Reactive Protein Albumin Triglycerides Amylase Lipase Urine WBC (Auto) Vancomycin Trough 12/19/17 12/19/17 12/19/17 05:15 05:41 07:57 WBC RBC Hgb Hct MCV MCH MCHC RDW Plt Count Seg Neuts % (Manual) Lymphocytes % (Manual) Monocytes % (Manual) Nucleated RBC % Seg Neutrophils # Man Lymphocytes # (Manual) Monocytes # (Manual) Eosinophils # (Manual) APTT POC ABG pH 7.507 H POC ABG pCO2 POC ABG pO2 VBG pH Sodium Potassium Chloride Carbon Dioxide BUN Creatinine Glucose POC Glucose 331 H 307 H Lactic Acid Calcium Total Bilirubin AST ALT C-Reactive Protein Albumin Triglycerides Amylase Lipase Urine WBC (Auto) Vancomycin Trough 12/19/17 12/19/17 12/19/17 10:21 14:48 17:59 WBC RBC Hgb Hct MCV MCH MCHC RDW Plt Count Seg Neuts % (Manual) Lymphocytes % (Manual) Monocytes % (Manual) Nucleated RBC % Seg Neutrophils # Man Lymphocytes # (Manual) Monocytes # (Manual) Eosinophils # (Manual) APTT POC ABG pH POC ABG pCO2 POC ABG pO2 VBG pH Sodium Potassium Chloride Carbon Dioxide BUN Creatinine Glucose POC Glucose 358 H 327 H 355 H Lactic Acid Calcium Total Bilirubin AST ALT C-Reactive Protein Albumin Triglycerides Amylase Lipase Urine WBC (Auto) Vancomycin Trough 12/19/17 12/20/17 12/20/17 21:38 02:21 03:42 WBC RBC Hgb Hct MCV MCH MCHC RDW Plt Count Seg Neuts % (Manual) Lymphocytes % (Manual) Monocytes % (Manual) Nucleated RBC % Seg Neutrophils # Man Lymphocytes # (Manual) Monocytes # (Manual) Eosinophils # (Manual) APTT POC ABG pH 7.494 H POC ABG pCO2 POC ABG pO2 VBG pH Sodium Potassium Chloride Carbon Dioxide BUN Creatinine Glucose POC Glucose 329 H 354 H Lactic Acid Calcium Total Bilirubin AST ALT C-Reactive Protein Albumin Triglycerides Amylase Lipase Urine WBC (Auto) Vancomycin Trough 12/20/17 12/20/17 12/20/17 04:08 04:08 04:08 WBC 22.7 H RBC 3.26 L Hgb 10.6 L Hct 32.9 L MCV 101 H MCH 33 H MCHC RDW Plt Count 78 L Seg Neuts % (Manual) 80.0 H Lymphocytes % (Manual) 6.0 L Monocytes % (Manual) Nucleated RBC % Seg Neutrophils # Man 18.2 H Lymphocytes # (Manual) Monocytes # (Manual) Eosinophils # (Manual) APTT POC ABG pH POC ABG pCO2 POC ABG pO2 VBG pH Sodium Potassium Chloride Carbon Dioxide 31 H BUN 30 H Creatinine 0.6 L Glucose 365 H POC Glucose Lactic Acid Calcium Total Bilirubin AST ALT C-Reactive Protein Albumin Triglycerides 981 H Amylase Lipase Urine WBC (Auto) Vancomycin Trough 12/20/17 12/20/17 12/20/17 05:15 10:47 13:40 WBC RBC Hgb Hct MCV MCH MCHC RDW Plt Count Seg Neuts % (Manual) Lymphocytes % (Manual) Monocytes % (Manual) Nucleated RBC % Seg Neutrophils # Man Lymphocytes # (Manual) Monocytes # (Manual) Eosinophils # (Manual) APTT POC ABG pH POC ABG pCO2 POC ABG pO2 VBG pH Sodium Potassium Chloride Carbon Dioxide BUN Creatinine Glucose POC Glucose 342 H 330 H Lactic Acid Calcium Total Bilirubin AST ALT C-Reactive Protein 7.10 H Albumin Triglycerides Amylase Lipase Urine WBC (Auto) Vancomycin Trough 12/20/17 12/20/17 12/20/17 13:40 14:52 16:55 WBC RBC Hgb Hct MCV MCH MCHC RDW Plt Count Seg Neuts % (Manual) Lymphocytes % (Manual) Monocytes % (Manual) Nucleated RBC % Seg Neutrophils # Man Lymphocytes # (Manual) Monocytes # (Manual) Eosinophils # (Manual) APTT POC ABG pH 7.484 H POC ABG pCO2 POC ABG pO2 VBG pH Sodium Potassium Chloride Carbon Dioxide BUN Creatinine Glucose POC Glucose 293 H Lactic Acid Calcium Total Bilirubin AST ALT C-Reactive Protein Albumin Triglycerides 1042 H Amylase Lipase Urine WBC (Auto) Vancomycin Trough 12/20/17 12/20/17 12/21/17 18:00 21:58 02:05 WBC RBC Hgb Hct MCV MCH MCHC RDW Plt Count Seg Neuts % (Manual) Lymphocytes % (Manual) Monocytes % (Manual) Nucleated RBC % Seg Neutrophils # Man Lymphocytes # (Manual) Monocytes # (Manual) Eosinophils # (Manual) APTT POC ABG pH POC ABG pCO2 POC ABG pO2 VBG pH Sodium Potassium Chloride Carbon Dioxide BUN Creatinine Glucose POC Glucose 268 H 272 H 229 H Lactic Acid Calcium Total Bilirubin AST ALT C-Reactive Protein Albumin Triglycerides Amylase Lipase Urine WBC (Auto) Vancomycin Trough 12/21/17 12/21/17 12/21/17 03:59 06:23 08:57 WBC RBC Hgb Hct MCV MCH MCHC RDW Plt Count Seg Neuts % (Manual) Lymphocytes % (Manual) Monocytes % (Manual) Nucleated RBC % Seg Neutrophils # Man Lymphocytes # (Manual) Monocytes # (Manual) Eosinophils # (Manual) APTT POC ABG pH 7.474 H POC ABG pCO2 POC ABG pO2 71 L VBG pH Sodium Potassium Chloride Carbon Dioxide BUN Creatinine Glucose POC Glucose 182 H 217 H Lactic Acid Calcium Total Bilirubin AST ALT C-Reactive Protein Albumin Triglycerides Amylase Lipase Urine WBC (Auto) Vancomycin Trough 12/21/17 12/21/17 12/21/17 13:59 18:00 21:20 WBC RBC Hgb Hct MCV MCH MCHC RDW Plt Count Seg Neuts % (Manual) Lymphocytes % (Manual) Monocytes % (Manual) Nucleated RBC % Seg Neutrophils # Man Lymphocytes # (Manual) Monocytes # (Manual) Eosinophils # (Manual) APTT POC ABG pH POC ABG pCO2 POC ABG pO2 VBG pH Sodium Potassium Chloride Carbon Dioxide BUN Creatinine Glucose POC Glucose 185 H 176 H 187 H Lactic Acid Calcium Total Bilirubin AST ALT C-Reactive Protein Albumin Triglycerides Amylase Lipase Urine WBC (Auto) Vancomycin Trough 12/21/17 12/22/17 12/22/17 23:48 04:39 05:30 WBC RBC Hgb Hct MCV MCH MCHC RDW Plt Count Seg Neuts % (Manual) Lymphocytes % (Manual) Monocytes % (Manual) Nucleated RBC % Seg Neutrophils # Man Lymphocytes # (Manual) Monocytes # (Manual) Eosinophils # (Manual) APTT POC ABG pH 7.528 H POC ABG pCO2 POC ABG pO2 63 L VBG pH Sodium Potassium Chloride Carbon Dioxide BUN Creatinine Glucose POC Glucose 126 H 117 H Lactic Acid Calcium Total Bilirubin AST ALT C-Reactive Protein Albumin Triglycerides Amylase Lipase Urine WBC (Auto) Vancomycin Trough 12/22/17 12/22/17 12/22/17 09:12 10:34 10:34 WBC 29.5 H RBC 3.44 L Hgb 11.2 L Hct 34.2 L MCV 99 H MCH 33 H MCHC RDW 13.1 L Plt Count 97 L Seg Neuts % (Manual) 88.0 H Lymphocytes % (Manual) 5.0 L Monocytes % (Manual) Nucleated RBC % Seg Neutrophils # Man 26.0 H Lymphocytes # (Manual) Monocytes # (Manual) Eosinophils # (Manual) APTT POC ABG pH POC ABG pCO2 POC ABG pO2 VBG pH Sodium 146 H Potassium 3.1 L Chloride Carbon Dioxide BUN 25 H Creatinine 0.7 L Glucose 146 H POC Glucose 168 H Lactic Acid Calcium 8.1 L Total Bilirubin AST ALT C-Reactive Protein Albumin Triglycerides Amylase Lipase Urine WBC (Auto) Vancomycin Trough 12/22/17 12/22/17 12/22/17 14:51 17:21 21:43 WBC RBC Hgb Hct MCV MCH MCHC RDW Plt Count Seg Neuts % (Manual) Lymphocytes % (Manual) Monocytes % (Manual) Nucleated RBC % Seg Neutrophils # Man Lymphocytes # (Manual) Monocytes # (Manual) Eosinophils # (Manual) APTT POC ABG pH POC ABG pCO2 POC ABG pO2 VBG pH Sodium Potassium Chloride Carbon Dioxide BUN Creatinine Glucose POC Glucose 125 H 110 H 153 H Lactic Acid Calcium Total Bilirubin AST ALT C-Reactive Protein Albumin Triglycerides Amylase Lipase Urine WBC (Auto) Vancomycin Trough 12/23/17 12/23/17 12/23/17 04:33 05:28 09:25 WBC 31.4 H RBC 3.05 L Hgb 9.8 L Hct 30.2 L MCV 99 H MCH MCHC RDW 12.9 L Plt Count 101 L Seg Neuts % (Manual) 97 H Lymphocytes % (Manual) 2 L Monocytes % (Manual) Nucleated RBC % Seg Neutrophils # Man 31.1 H Lymphocytes # (Manual) 0.5 L Monocytes # (Manual) Eosinophils # (Manual) APTT POC ABG pH 7.573 H POC ABG pCO2 31.0 L POC ABG pO2 63 L VBG pH Sodium Potassium Chloride Carbon Dioxide BUN Creatinine Glucose POC Glucose 124 H Lactic Acid Calcium Total Bilirubin AST ALT C-Reactive Protein Albumin Triglycerides Amylase Lipase Urine WBC (Auto) Vancomycin Trough 12/23/17 12/23/17 12/23/17 09:25 10:08 14:20 WBC RBC Hgb Hct MCV MCH MCHC RDW Plt Count Seg Neuts % (Manual) Lymphocytes % (Manual) Monocytes % (Manual) Nucleated RBC % Seg Neutrophils # Man Lymphocytes # (Manual) Monocytes # (Manual) Eosinophils # (Manual) APTT POC ABG pH POC ABG pCO2 POC ABG pO2 VBG pH Sodium Potassium 3.1 L Chloride Carbon Dioxide BUN Creatinine 0.6 L Glucose 169 H POC Glucose 171 H 211 H Lactic Acid Calcium 7.9 L Total Bilirubin AST ALT C-Reactive Protein Albumin Triglycerides Amylase Lipase Urine WBC (Auto) Vancomycin Trough 12/23/17 12/23/17 12/24/17 18:59 21:49 01:47 WBC RBC Hgb Hct MCV MCH MCHC RDW Plt Count Seg Neuts % (Manual) Lymphocytes % (Manual) Monocytes % (Manual) Nucleated RBC % Seg Neutrophils # Man Lymphocytes # (Manual) Monocytes # (Manual) Eosinophils # (Manual) APTT POC ABG pH POC ABG pCO2 POC ABG pO2 VBG pH Sodium Potassium Chloride Carbon Dioxide BUN Creatinine Glucose POC Glucose 175 H 146 H 143 H Lactic Acid Calcium Total Bilirubin AST ALT C-Reactive Protein Albumin Triglycerides Amylase Lipase Urine WBC (Auto) Vancomycin Trough 12/24/17 12/24/17 12/24/17 05:40 10:12 13:12 WBC RBC Hgb Hct MCV MCH MCHC RDW Plt Count Seg Neuts % (Manual) Lymphocytes % (Manual) Monocytes % (Manual) Nucleated RBC % Seg Neutrophils # Man Lymphocytes # (Manual) Monocytes # (Manual) Eosinophils # (Manual) APTT POC ABG pH 7.558 H POC ABG pCO2 27.6 L POC ABG pO2 71 L VBG pH Sodium Potassium Chloride Carbon Dioxide BUN Creatinine Glucose POC Glucose 118 H 111 H Lactic Acid Calcium Total Bilirubin AST ALT C-Reactive Protein Albumin Triglycerides Amylase Lipase Urine WBC (Auto) Vancomycin Trough 12/24/17 12/24/17 12/24/17 16:26 20:44 21:49 WBC RBC Hgb Hct MCV MCH MCHC RDW Plt Count Seg Neuts % (Manual) Lymphocytes % (Manual) Monocytes % (Manual) Nucleated RBC % Seg Neutrophils # Man Lymphocytes # (Manual) Monocytes # (Manual) Eosinophils # (Manual) APTT POC ABG pH POC ABG pCO2 POC ABG pO2 VBG pH Sodium Potassium Chloride Carbon Dioxide BUN Creatinine Glucose POC Glucose 113 H 124 H 115 H Lactic Acid Calcium Total Bilirubin AST ALT C-Reactive Protein Albumin Triglycerides Amylase Lipase Urine WBC (Auto) Vancomycin Trough 12/24/17 12/25/17 12/25/17 Unknown 02:26 03:38 WBC RBC Hgb Hct MCV MCH MCHC RDW Plt Count Seg Neuts % (Manual) Lymphocytes % (Manual) Monocytes % (Manual) Nucleated RBC % Seg Neutrophils # Man Lymphocytes # (Manual) Monocytes # (Manual) Eosinophils # (Manual) APTT POC ABG pH 7.503 H POC ABG pCO2 POC ABG pO2 66 L VBG pH Sodium Potassium 3.0 L Chloride Carbon Dioxide BUN Creatinine 0.5 L Glucose 166 H POC Glucose 106 H Lactic Acid Calcium 7.8 L Total Bilirubin AST ALT C-Reactive Protein Albumin Triglycerides Amylase Lipase Urine WBC (Auto) Vancomycin Trough 12/25/17 12/25/17 12/25/17 04:58 12:58 15:06 WBC RBC Hgb Hct MCV MCH MCHC RDW Plt Count Seg Neuts % (Manual) Lymphocytes % (Manual) Monocytes % (Manual) Nucleated RBC % Seg Neutrophils # Man Lymphocytes # (Manual) Monocytes # (Manual) Eosinophils # (Manual) APTT POC ABG pH POC ABG pCO2 POC ABG pO2 VBG pH Sodium Potassium Chloride Carbon Dioxide BUN Creatinine Glucose POC Glucose 113 H 118 H Lactic Acid Calcium Total Bilirubin AST ALT C-Reactive Protein Albumin Triglycerides Amylase Lipase Urine WBC (Auto) Vancomycin Trough 22.5 H 12/25/17 12/25/17 12/25/17 17:59 21:33 Unknown WBC 20.5 H RBC 2.75 L Hgb 9.1 L Hct 27.1 L MCV 99 H MCH 33 H MCHC RDW Plt Count 126 L Seg Neuts % (Manual) 89.0 H Lymphocytes % (Manual) 6.0 L Monocytes % (Manual) Nucleated RBC % Seg Neutrophils # Man 18.2 H Lymphocytes # (Manual) Monocytes # (Manual) Eosinophils # (Manual) APTT POC ABG pH POC ABG pCO2 POC ABG pO2 VBG pH Sodium Potassium Chloride Carbon Dioxide BUN Creatinine Glucose POC Glucose 145 H 167 H Lactic Acid Calcium Total Bilirubin AST ALT C-Reactive Protein Albumin Triglycerides Amylase Lipase Urine WBC (Auto) Vancomycin Trough 12/25/17 12/26/17 12/26/17 Unknown 02:26 05:29 WBC RBC Hgb Hct MCV MCH MCHC RDW Plt Count Seg Neuts % (Manual) Lymphocytes % (Manual) Monocytes % (Manual) Nucleated RBC % Seg Neutrophils # Man Lymphocytes # (Manual) Monocytes # (Manual) Eosinophils # (Manual) APTT POC ABG pH POC ABG pCO2 POC ABG pO2 VBG pH Sodium Potassium 2.8 L* Chloride Carbon Dioxide BUN Creatinine 0.6 L Glucose POC Glucose 167 H 216 H Lactic Acid Calcium 7.4 L Total Bilirubin AST ALT C-Reactive Protein Albumin Triglycerides Amylase Lipase Urine WBC (Auto) Vancomycin Trough 12/26/17 12/26/17 12/26/17 10:21 14:30 18:35 WBC RBC Hgb Hct MCV MCH MCHC RDW Plt Count Seg Neuts % (Manual) Lymphocytes % (Manual) Monocytes % (Manual) Nucleated RBC % Seg Neutrophils # Man Lymphocytes # (Manual) Monocytes # (Manual) Eosinophils # (Manual) APTT POC ABG pH POC ABG pCO2 POC ABG pO2 VBG pH Sodium Potassium Chloride Carbon Dioxide BUN Creatinine Glucose POC Glucose 164 H 157 H 146 H Lactic Acid Calcium Total Bilirubin AST ALT C-Reactive Protein Albumin Triglycerides Amylase Lipase Urine WBC (Auto) Vancomycin Trough 12/26/17 12/26/17 12/27/17 21:21 Unknown 01:54 WBC RBC Hgb Hct MCV MCH MCHC RDW Plt Count Seg Neuts % (Manual) Lymphocytes % (Manual) Monocytes % (Manual) Nucleated RBC % Seg Neutrophils # Man Lymphocytes # (Manual) Monocytes # (Manual) Eosinophils # (Manual) APTT POC ABG pH POC ABG pCO2 POC ABG pO2 VBG pH Sodium Potassium 3.0 L Chloride Carbon Dioxide BUN Creatinine 0.5 L Glucose 166 H POC Glucose 132 H 157 H Lactic Acid Calcium 7.8 L Total Bilirubin AST ALT C-Reactive Protein Albumin Triglycerides Amylase Lipase Urine WBC (Auto) Vancomycin Trough 12/27/17 12/27/17 12/27/17 05:20 05:20 05:44 WBC 26.4 H RBC 2.83 L Hgb 9.3 L Hct 27.6 L MCV 98 H MCH 33 H MCHC RDW Plt Count Seg Neuts % (Manual) 85.0 H Lymphocytes % (Manual) 5.0 L Monocytes % (Manual) Nucleated RBC % Seg Neutrophils # Man 22.4 H Lymphocytes # (Manual) Monocytes # (Manual) Eosinophils # (Manual) 0.5 H APTT POC ABG pH POC ABG pCO2 POC ABG pO2 VBG pH Sodium Potassium 2.3 L* D Chloride Carbon Dioxide BUN 7 L Creatinine 0.6 L Glucose 123 H POC Glucose 128 H Lactic Acid Calcium 8.1 L Total Bilirubin AST ALT C-Reactive Protein Albumin Triglycerides Amylase Lipase Urine WBC (Auto) Vancomycin Trough Chest x-ray: image reviewed
[2017-12-27] MEDS: ZYVOX 600MG/300ML 600 MG/300 ML BAG IV SCH ×2 (09:41→23:32)
[2017-12-27] MEDS: LOPRESSOR PO SCH ×2 (09:42→23:48)
[2017-12-27] MEDS: VITAMIN B-1 PO SCH (09:42)
[2017-12-27] MEDS: LANTUS SUB-Q SCH (09:43)
[2017-12-27] MEDS: PEPCID PO SCH ×2 (09:43→23:46)
[2017-12-27] MEDS: HALDOL IV SCH ×3 (09:43→23:52)
[2017-12-27] MEDS: POTASSIUM CHLORIDE PO SCH (09:43)
[2017-12-27] MEDS: SODIUM CHLORIDE FLUSH SYRINGE 10 ML IV SCH ×2 (09:44→23:35)
--- NOTE | 2017-12-27 09:46 | Progress Note ---
Assessment and Plan Assessment and plan: --Acute hypoxic respiratory failure : self extubated Continue nebulizers,o2 ,titrate to o2 sats > 90% --Severe Hypokalemia; replenished per protocol and monitor levels --Persistent fevers; secondary to sepsis Continue IV antibiotics, antipyretics, follow cultures ID following --Possible ARDS/aspiration pneumonia: Continue current antibiotics , cefepime and Zyvox and Flagyl Follow cultures --Sepsis with Aspiration pneumonia ?, Present on admission on IV antibiotics, repeat blood cx negative --Alcohol abuse: sedated, cont iv thiamine --Hypotension resolved with ivfs and iv steroids --Thrombocytopenia, improving closely monitor, no evidence of bleeding --Hypernatremia -corrected --Severe protein calorie malnutrition; nutrition supplements, to feeding and supportive care --DM type 2-continue Accu-Chek sliding scale coverage long-acting insulin, chilled feeding --DVT prophylaxis: scd only, no pharmacologic anticoagulation due to thrombocytopenia Plan of care is reviewed with the patient's nurse and case management Consults and recommendations noted and appreciated Critical care time 31 minutes The high probability of a clinically significant sudden or life-threatening deterioration of the [infectious, respiratory, hematologic] system(s) required my full and direct attention, intervention and personal management. The aggregate critical care time was [31 ] minutes. This time is in addition to the time spent performing reported procedures but including [ X] Data review and interpretation [ X] Patient assessment and monitoring of vital signs [ X ] Documentation [X] Medication orders and management May Transfer the patient out of ICU before this evening if stable History Interval history: Patient seen and evaluated medical records reviewed Patient self extubated on Ventimask Alert and awake ,Slightly confused, responding to simple questions appropriately Febrile MAXIMUM TEMPERATURE 101 Vital signs reviewed Hospitalist Physical - Constitutional Vitals: Temp Pulse Resp BP Pulse Ox 101.6 F H 118 H 36 H 158/79 92 12/27/17 08:00 12/27/17 09:42 12/27/17 09:01 12/27/17 09:42 12/27/17 09:01 General appearance: Present: no acute distress, well-nourished, other (on Ventimask) - EENT Eyes: Present: PERRL, EOM intact - Neck Neck: Present: supple, normal ROM - Respiratory Respiratory effort: normal Respiratory: bilateral: diminished, rhonchi, negative: rales, wheezing - Cardiovascular Rhythm: regular Heart Sounds: Present: S1 & S2 - Extremities Extremities: no ischemia, No edema - Abdominal General gastrointestinal: soft, non-tender, non-distended, normal bowel sounds - Integumentary Integumentary: Present: clear, warm - Psychiatric Psychiatric: appropriate mood/affect, other (confused at times) - Neurologic Neurologic: CNII-XII intact, moves all extremities Results - Labs CBC & Chem 7: 12/27/17 05:20 12/27/17 05:20 Labs: Laboratory Last Values WBC 26.4 K/mm3 (4.5-11.0) H 12/27/17 05:20 RBC 2.83 M/mm3 (3.65-5.03) L 12/27/17 05:20 Hgb 9.3 gm/dl (11.8-15.2) L 12/27/17 05:20 Hct 27.6 % (35.5-45.6) L 12/27/17 05:20 MCV 98 fl (84-94) H 12/27/17 05:20 MCH 33 pg (28-32) H 12/27/17 05:20 MCHC 34 % (32-34) 12/27/17 05:20 RDW 13.7 % (13.2-15.2) 12/27/17 05:20 Plt Count 181 K/mm3 (140-440) 12/27/17 05:20 Dent % (Auto) Skoog Operator 12/12/17 19:02 Add Manual Diff Complete 12/27/17 05:20 Total Counted 100 12/27/17 05:20 Seg Neutrophils % Skoog Operator 12/23/17 09:25 Seg Neuts % (Manual) 85.0 % (40.0-70.0) H 12/27/17 05:20 Band Neutrophils % 6.0 % 12/27/17 05:20 Lymphocytes % (Manual) 5.0 % (13.4-35.0) L 12/27/17 05:20 Reactive Lymphs % (Man) 0 % 12/27/17 05:20 Monocytes % (Manual) 2.0 % (0.0-7.3) 12/27/17 05:20 Eosinophils % (Manual) 2.0 % (0.0-4.3) 12/27/17 05:20 Basophils % (Manual) 0 % (0.0-1.8) 12/27/17 05:20 Metamyelocytes % 0 % 12/27/17 05:20 Myelocytes % 0 % 12/27/17 05:20 Promyelocytes % 0 % 12/27/17 05:20 Blast Cells % 0 % 12/27/17 05:20 Nucleated RBC % Not Reportable 12/27/17 05:20 Seg Neutrophils # Man 22.4 K/mm3 (1.8-7.7) H 12/27/17 05:20 Band Neutrophils # 1.6 K/mm3 12/27/17 05:20 Lymphocytes # (Manual) 1.3 K/mm3 (1.2-5.4) 12/27/17 05:20 Abs React Lymphs (Man) 0.0 K/mm3 12/27/17 05:20 Monocytes # (Manual) 0.5 K/mm3 (0.0-0.8) 12/27/17 05:20 Eosinophils # (Manual) 0.5 K/mm3 (0.0-0.4) H 12/27/17 05:20 Basophils # (Manual) 0.0 K/mm3 (0.0-0.1) 12/27/17 05:20 Metamyelocytes # 0.0 K/mm3 12/27/17 05:20 Myelocytes # 0.0 K/mm3 12/27/17 05:20 Promyelocytes # 0.0 K/mm3 12/27/17 05:20 Blast Cells # 0.0 K/mm3 12/27/17 05:20 Pathologist Review 12/23/17 09:25 WBC Morphology Not Reportable 12/27/17 05:20 Hypersegmented Neuts Not Reportable 12/27/17 05:20 Hyposegmented Neuts Not Reportable 12/27/17 05:20 Hypogranular Neuts Not Reportable 12/27/17 05:20 Smudge Cells Not Reportable 12/27/17 05:20 Toxic Granulation Not Reportable 12/27/17 05:20 Toxic Vacuolation Not Reportable 12/27/17 05:20 Dohle Bodies Not Reportable 12/27/17 05:20 Pelger-Huet Anomaly Not Reportable 12/27/17 05:20 Mary Rods Not Reportable 12/27/17 05:20 Platelet Estimate Appears normal 12/27/17 05:20 Clumped Platelets Not Reportable 12/27/17 05:20 Plt Clumps, EDTA Not Reportable 12/27/17 05:20 Large Platelets Not Reportable 12/27/17 05:20 Giant Platelets Not Reportable 12/27/17 05:20 Platelet Satelliting Not Reportable 12/27/17 05:20 Plt Morphology Comment Not Reportable 12/27/17 05:20 RBC Morphology Not Reportable 12/27/17 05:20 Dimorphic RBCs Not Reportable 12/27/17 05:20 Polychromasia Not Reportable 12/27/17 05:20 Hypochromasia Not Reportable 12/27/17 05:20 Poikilocytosis Not Reportable 12/27/17 05:20 Anisocytosis 1+ 12/27/17 05:20 Microcytosis Not Reportable 12/27/17 05:20 Macrocytosis Not Reportable 12/27/17 05:20 Spherocytes Not Reportable 12/27/17 05:20 Pappenheimer Bodies Not Reportable 12/27/17 05:20 Sickle Cells Not Reportable 12/27/17 05:20 Target Cells Not Reportable 12/27/17 05:20 Tear Drop Cells Not Reportable 12/27/17 05:20 Ovalocytes Not Reportable 12/27/17 05:20 Stomatocytes 1+ 12/27/17 05:20 Helmet Cells Not Reportable 12/27/17 05:20 Arceo-[place]arcox[place] Bodies Not Reportable 12/27/17 05:20 [place] Rings Not Reportable 12/27/17 05:20 [place] Cells Not Reportable 12/27/17 05:20 Bite Cells Not Reportable 12/27/17 05:20 Crenated Cell Not Reportable 12/27/17 05:20 Elliptocytes Not Reportable 12/27/17 05:20 Acanthocytes (Spur) Not Reportable 12/27/17 05:20 Rouleaux Not Reportable 12/27/17 05:20 Hemoglobin C Crystals Not Reportable 12/27/17 05:20 Schistocytes Not Reportable 12/27/17 05:20 Malaria parasites Not Reportable 12/27/17 05:20 Vipul Bodies Not Reportable 12/27/17 05:20 Hem Pathologist Commnt No 12/27/17 05:20 PT 14.9 Sec. (12.2-14.9) 12/15/17 04:05 INR 1.11 (0.87-1.13) 12/15/17 04:05 APTT 20.9 Sec. (24.2-36.6) L 12/15/17 04:05 POC ABG pH 7.503 (7.35-7.45) H 12/25/17 03:38 POC ABG pCO2 35.8 (35-45) 12/25/17 03:38 POC ABG pO2 66 (80-105) L 12/25/17 03:38 POC ABG HCO3 28.1 12/25/17 03:38 POC ABG Total CO2 29 12/25/17 03:38 POC ABG O2 Sat 95 12/25/17 03:38 POC ABG Base Excess 5 12/25/17 03:38 VBG pH 7.472 (7.320-7.420) H 12/12/17 19:18 FiO2 35 % 12/25/17 03:38 Sodium 142 mmol/L (137-145) 12/27/17 05:20 Potassium 2.3 mmol/L (3.6-5.0) L* D 12/27/17 05:20 Chloride 98.2 mmol/L (98-107) 12/27/17 05:20 Carbon Dioxide 30 mmol/L (22-30) 12/27/17 05:20 Anion Gap 16 mmol/L 12/27/17 05:20 BUN 7 mg/dL (9-20) L 12/27/17 05:20 Creatinine 0.6 mg/dL (0.8-1.5) L 12/27/17 05:20 Estimated GFR > 60 ml/min 12/27/17 05:20 BUN/Creatinine Ratio 12 % 12/27/17 05:20 Glucose 123 mg/dL (75-100) H 12/27/17 05:20 POC Glucose 128 (70-105) H 12/27/17 05:44 Lactic Acid 2.00 mmol/L (0.7-2.0) 12/13/17 19:38 Calcium 8.1 mg/dL (8.4-10.2) L 12/27/17 05:20 Magnesium 1.70 mg/dL (1.7-2.3) 12/27/17 05:20 Total Bilirubin 4.60 mg/dL (0.1-1.2) H 12/12/17 19:02 AST 93 units/L (5-40) H 12/12/17 19:02 ALT 112 units/L (7-56) H 12/12/17 19:02 Alkaline Phosphatase 80 units/L (35-129) 12/12/17 19:02 C-Reactive Protein 7.10 mg/dL (0.00-1.30) H 12/20/17 13:40 NT-Pro-B Natriuret Pep 409.9 pg/mL (0-450) 12/12/17 19:02 Total Protein 6.5 g/dL (6.3-8.2) 12/12/17 19:02 Albumin 2.5 g/dL (3.9-5) L 12/12/17 19:02 Albumin/Globulin Ratio 0.6 % 12/12/17 19:02 Triglycerides 1042 mg/dL (2-149) H 12/20/17 13:40 Amylase 20 units/L (27-131) L 12/13/17 13:47 Lipase 9 units/L (13-60) L 12/13/17 13:47 Urine Color Neeta (Yellow) 12/15/17 17:00 Urine Turbidity Hazy (Clear) 12/15/17 17:00 Urine pH 6.0 (5.0-7.0) 12/15/17 17:00 Ur Specific [place] 1.027 (1.003-1.030) 12/15/17 17:00 Urine Protein 30 mg/dl mg/dL (Negative) 12/15/17 17:00 Urine Glucose (UA) Neg mg/dL (Negative) 12/15/17 17:00 Urine Ketones Tr mg/dL (Negative) 12/15/17 17:00 Urine Blood Lg (Negative) 12/15/17 17:00 Urine Nitrite Neg (Negative) 12/15/17 17:00 Urine Bilirubin Neg (Negative) 12/15/17 17:00 Urine Ictotest Positive (Negative) 12/12/17 20:42 Urine Urobilinogen < 2.0 mg/dL (<2.0) 12/15/17 17:00 Ur Leukocyte Esterase Tr (Negative) 12/15/17 17:00 Urine WBC (Auto) 38.0 /HPF (0.0-6.0) H 12/15/17 17:00 Urine RBC (Auto) 65.0 /HPF (0.0-6.0) 12/15/17 17:00 U Epithel Cells (Auto) < 1.0 /HPF (0-13.0) 12/12/17 20:42 Urine Bacteria (Auto) 1+ /HPF (Negative) 12/15/17 17:00 Urine Mucus 1+ /HPF 12/12/17 20:42 Vancomycin Trough 22.5 ug/mL (5.0-20.0) H 12/25/17 12:58 JERMAIN Screen Negative (Negative) 12/18/17 16:44 Proteinase 3 (PR3) Ab <1.0 AI (<1.0) 12/18/17 16:33 Myeloperoxidase Ab <1.0 AI (<1.0) 12/18/17 16:33 Complement C3 113 mg/dL (82-185) 12/18/17 16:33 Complement C4 15 mg/dL (15-53) 12/18/17 16:33 Hepatitis A IgM Ab Non-reactive (NonReactive) 12/20/17 13:40 Hep Bs Antigen Non-reactive (Negative) 12/20/17 13:40 Hep B Core IgM Ab Non-reactive (NonReactive) 12/20/17 13:40 Hepatitis C Antibody Non-reactive (NonReactive) 12/20/17 13:40 HIV 1&2 Antibody Rapid Non react (Non React) 12/20/17 13:40 HIV P24 Antigen Non react (Non React) 12/20/17 13:40 Influenza A (Rapid) Negative (Negative) 12/12/17 22:00 Influenza B (Rapid) Negative (Negative) 12/12/17 22:00 Urine Legionella Ag Not detected (Not Detected) 12/14/17 16:15 Miscellaneous Test Flexitest 1 12/14/17 16:15
[2017-12-27] MEDS ORDERED: KCL 10MEQ/100ML 10 MEQ/100 ML BAG IV SCH (10:00)
[2017-12-27] MEDS: APRESOLINE IV PRN (10:10)
[2017-12-27] MEDS: KCL 20MEQ/100ML 20 MEQ/100 ML BAG IV SCH ×5 (10:56→15:19)
[2017-12-27] MEDS: POTASSIUM CHLORIDE FEEDTUBE SCH ×2 (13:13→17:25)
[2017-12-27] MEDS: ATIVAN IV PRN ×2 (13:49→17:26)
[2017-12-27] MEDS: SODIUM CHLORIDE FLUSH SYRINGE 10 ML IV PRN ×2 (14:18→23:32)
--- NOTE | 2017-12-27 16:00 | Progress Note ---
Assessment and Plan Assessment: 1) Severe Sepsis: still fever and leukocytosis. Etiology most likely complicated H influenza bacteremia +/- pneumonia +/- ? intrabdominal source. Not better after 10 days of broad spectrum abx -blood cx negatige -US legs No DVT -Abd US negative 2) H influenza bacteremia: likely from pneumonia. TTE neg 3) Complicated Bilateral pneumonia: etiology H influenza - should r/o empyema or abscess -CXR showed kimberlee pneumonia -Sputum 12/20 showed usual resp angelika -HIV neg -JERMAIN and ANCA negative -C3/C4 normal -CRP=7.1 -Strep pneumoniae not detected -Legionella not detected -tracheal aspirate - usual resp angelika 4) Acute respiratory failure: intubated 5) Thrombocytopenia : from sepsis, better. 6) Elevated LFTs: from sepsis, ETOH. Viral hepatitis all negative. 7) DM: uncontrolled Plan: -consider chest and abdominal CT when stable - in view of persistent fever -continue cefepime and flagyl - day 8 of 10 -continue zyvox - day 3 of I will be off until 12/31. Please call me for questions. Thank you for your consultation, will follow up with you. Mariel Corrigan MD Infectious Diseases Specialist [facility] M [phone] O [phone] Subjective Date of service: 12/27/17 Principal diagnosis: ARDS Interval history: Pt self-extubated himself, feels ok, still tmax 101.6, denies abdominal pain. Wants to get out of bed. Microbiology: Blood cultures: 12/12 H influenza 1 of 4 bottles 12/15 neg 12/17 neg 12/23 neg 12/26 ngtd Respiratory cultures: 12/13 - usual resp angelika 12/20 tracheal asp - usual resp angelika Current Antimicrobials: zyvox 11/27 cefepime 12/20 flagyl 12/20 Previous Antimicrobials: Zosyn Levaquin 12/13 Clindamycin 12/17 vanco 12/17 Objective - Exam Narrative Exam: General appearance: alert talking in NAD on NC O2 Eyes: anicteric sclerae, moist conjunctivae; no lid-lag; PERRLA HENT: Atraumatic; oropharynx clear Neck: Trachea midline; supple, no thyromegaly or lymphadenopathy Lungs: kimberlee rhonchi CV:tachy Abdomen: Soft, distended tense Extremities: legs edema Skin: Normal temperature, turgor and texture; no rash, ulcers or subcutaneous nodules Psych: alert talking. Neuro: alert talking moving all extremitties Lines: No CVL / PICC - Constitutional Vitals: Vital Signs Temp Pulse Resp BP Pulse Ox 98.6 F 112 H 14 185/89 94 12/27/17 15:40 12/27/17 14:12 12/27/17 14:12 12/27/17 10:10 12/27/17 09:30 Temperature -Last 24 Hours Temperature 98.6 F Temperature 99.7 F Temperature 101.6 F Temperature 99.0 F Temperature 99.1 F Temperature 100.9 F - Labs CBC & Chem 7: 12/27/17 05:20 12/27/17 05:20 Labs: Abnormal lab results 12/24/17 12/26/17 12/26/17 Range/Units Unknown 18:35 21:21 WBC (4.5-11.0) K/mm3 RBC (3.65-5.03) M/mm3 Hgb (11.8-15.2) gm/dl Hct (35.5-45.6) % MCV (84-94) fl MCH (28-32) pg Seg Neuts % (Manual) (40.0-70.0) % Lymphocytes % (Manual) (13.4-35.0) % Seg Neutrophils # Man (1.8-7.7) K/mm3 Eosinophils # (Manual) (0.0-0.4) K/mm3 Potassium 3.0 L (3.6-5.0) mmol/L BUN (9-20) mg/dL Creatinine 0.5 L (0.8-1.5) mg/dL Glucose 166 H (75-100) mg/dL POC Glucose 146 H 132 H (70-105) Calcium 7.8 L (8.4-10.2) mg/dL 12/27/17 12/27/17 12/27/17 Range/Units 01:54 05:20 05:20 WBC 26.4 H (4.5-11.0) K/mm3 RBC 2.83 L (3.65-5.03) M/mm3 Hgb 9.3 L (11.8-15.2) gm/dl Hct 27.6 L (35.5-45.6) % MCV 98 H (84-94) fl MCH 33 H (28-32) pg Seg Neuts % (Manual) 85.0 H (40.0-70.0) % Lymphocytes % (Manual) 5.0 L (13.4-35.0) % Seg Neutrophils # Man 22.4 H (1.8-7.7) K/mm3 Eosinophils # (Manual) 0.5 H (0.0-0.4) K/mm3 Potassium 2.3 L* D (3.6-5.0) mmol/L BUN 7 L (9-20) mg/dL Creatinine 0.6 L (0.8-1.5) mg/dL Glucose 123 H (75-100) mg/dL POC Glucose 157 H (70-105) Calcium 8.1 L (8.4-10.2) mg/dL 12/27/17 12/27/17 12/27/17 Range/Units 05:44 10:04 14:44 WBC (4.5-11.0) K/mm3 RBC (3.65-5.03) M/mm3 Hgb (11.8-15.2) gm/dl Hct (35.5-45.6) % MCV (84-94) fl MCH (28-32) pg Seg Neuts % (Manual) (40.0-70.0) % Lymphocytes % (Manual) (13.4-35.0) % Seg Neutrophils # Man (1.8-7.7) K/mm3 Eosinophils # (Manual) (0.0-0.4) K/mm3 Potassium (3.6-5.0) mmol/L BUN (9-20) mg/dL Creatinine (0.8-1.5) mg/dL Glucose (75-100) mg/dL POC Glucose 128 H 115 H 128 H (70-105) Calcium (8.4-10.2) mg/dL
[2017-12-28 00:51] LABS: ABG Base Excess 6.2 mmol/L (-2.0-3.0); ABG HCO3 29.9 mmol/L (20.0-26.0); ABG Methemoglobin 0.3 % (0.0-1.5); ABG PCO2 39.6 mm Hg; ABG PH 7.497 pH Units (7.350-7.450); ABG PO2 71.4 mm Hg (80.0-90.0)
[2017-12-28] MEDS: DUONEB *Not for PRN Use IH SCH ×4 (01:33→20:14)
[2017-12-28] MEDS: HumaLOG SUB-Q SCH ×6 (02:17→21:35)
[2017-12-28] MEDS: LIBRIUM PO SCH (05:09)
[2017-12-28] MEDS: FLAGYL 500 MG/100 ML 500 MG/100 ML BAG IV SCH ×3 (05:17→21:06)
[2017-12-28] MEDS: HALDOL IV SCH ×4 (05:17→23:34)
[2017-12-28] MEDS: HEPARIN SUB-Q SCH ×3 (05:17→21:45)
[2017-12-28] MEDS: MAXIPIME 2 GM in NACL 0.9% 20 ML IV SCH ×3 (06:15→21:28)
[2017-12-28] MEDS: SODIUM CHLORIDE FLUSH SYRINGE 10 ML IV PRN ×6 (08:49→23:39)
[2017-12-28 09:08] LABS: BUN/Creatinine Ratio 10; Blood Urea Nitrogen 5 mg/dL (9-20); Calcium 8.3 mg/dL (8.4-10.2); Hemolysis Index 0
[2017-12-28 09:14] LABS: Hemoglobin 9.1 gm/dl (11.8-15.2); Mean Corpuscular HGB Conc 34 % (32-34); Mean Corpuscular Hemoglobin 33 pg (28-32); Mean Corpuscular Volume 98 fl (84-94); Platelet Count 212 K/mm3 (140-440); Red Blood Count 2.76 M/mm3 (3.65-5.03); Red Cell Distribution Width 13.4 % (13.2-15.2)
[2017-12-28] MEDS: ZYVOX 600MG/300ML 600 MG/300 ML BAG IV SCH ×2 (09:53→21:05)
[2017-12-28] MEDS: LANTUS SUB-Q SCH (09:56)
[2017-12-28] MEDS: LOPRESSOR PO SCH (09:56)
[2017-12-28] MEDS: POTASSIUM CHLORIDE PO SCH (09:57)
[2017-12-28] MEDS: PEPCID PO SCH ×2 (09:57→23:26)
[2017-12-28] MEDS: SODIUM CHLORIDE FLUSH SYRINGE 10 ML IV SCH ×2 (09:58→22:10)
[2017-12-28] MEDS: VITAMIN B-1 PO SCH (09:58)
--- NOTE | 2017-12-28 10:26 | Progress Note ---
Assessment and Plan Assessment and plan: --Acute hypoxic respiratory failure : self extubated yesterday Now patient is on BiPAP, tachypneic and tachycardic Continue nebulizers, IV steroids, intubated as needed, pulmonary following --Severe Hypokalemia; replenished per protocol with IV and oral potassium chloride Check magnesium, closely monitor electrolytes --Persistent fevers; secondary to sepsis Continue IV antibiotics, antipyretics, follow cultures ID following --Possible ARDS/aspiration pneumonia: Continue current antibiotics , cefepime and Zyvox and Flagyl Follow cultures --Alcohol abuse: sedated, cont iv thiamine --Hypotension resolved with ivfs and iv steroids --Thrombocytopenia, improving closely monitor, no evidence of bleeding --Hypernatremia -corrected --Severe protein calorie malnutrition; nutrition supplements, to feeding and supportive care --DM type 2-continue Accu-Chek sliding scale coverage long-acting insulin, chilled feeding --DVT prophylaxis: scd only, no pharmacologic anticoagulation due to thrombocytopenia Plan of care is reviewed with the patient's nurse and case management Consults and recommendations noted and appreciated Critical care time 31 minutes The high probability of a clinically significant sudden or life-threatening deterioration of the [infectious, respiratory, hematologic] system(s) required my full and direct attention, intervention and personal management. The aggregate critical care time was [31 ] minutes. This time is in addition to the time spent performing reported procedures but including [ X] Data review and interpretation [ X] Patient assessment and monitoring of vital signs [ X ] Documentation [X] Medication orders and management May Transfer the patient out of ICU before this evening if stable History Interval history: Patient seen and examined medical records reviewed Patient is tachycardic tachypneic on BiPAP Severe hypokalemia with potassium of 2.2 Complaints of shortness of breath, lethargic at times Vital signs reviewed Hospitalist Physical - Constitutional Vitals: Temp Pulse Resp BP Pulse Ox 100.3 F H 120 H 59 H 162/80 93 12/28/17 08:00 12/28/17 09:56 12/28/17 09:00 12/28/17 09:56 12/28/17 09:00 General appearance: Present: mild distress, well-nourished, other (on Ventimask) - EENT Eyes: Present: PERRL, EOM intact - Neck Neck: Present: supple, normal ROM - Respiratory Respiratory effort: labored Respiratory: bilateral: diminished, negative: rales, rhonchi, wheezing - Cardiovascular Rhythm: regular Heart Sounds: Present: S1 & S2 - Extremities Extremities: no ischemia, pulses intact, pulses symmetrical - Abdominal General gastrointestinal: soft, non-tender, non-distended, normal bowel sounds - Integumentary Integumentary: Present: clear, warm - Psychiatric Psychiatric: appropriate mood/affect, agitated, other (tachypneic and tachycardic) - Neurologic Neurologic: CNII-XII intact, moves all extremities Results - Labs CBC & Chem 7: 12/28/17 09:10 12/28/17 08:47 Labs: Laboratory Last Values WBC 28.1 K/mm3 (4.5-11.0) H 12/28/17 09:10 RBC 2.76 M/mm3 (3.65-5.03) L 12/28/17 09:10 Hgb 9.1 gm/dl (11.8-15.2) L 12/28/17 09:10 Hct 27.0 % (35.5-45.6) L 12/28/17 09:10 MCV 98 fl (84-94) H 12/28/17 09:10 MCH 33 pg (28-32) H 12/28/17 09:10 MCHC 34 % (32-34) 12/28/17 09:10 RDW 13.4 % (13.2-15.2) 12/28/17 09:10 Plt Count 212 K/mm3 (140-440) 12/28/17 09:10 [place] % (Auto) Party Plan Demonstrator 12/12/17 19:02 Add Manual Diff Complete 12/27/17 05:20 Total Counted 100 12/27/17 05:20 Seg Neutrophils % Party Plan Demonstrator 12/23/17 09:25 Seg Neuts % (Manual) 85.0 % (40.0-70.0) H 12/27/17 05:20 Band Neutrophils % 6.0 % 12/27/17 05:20 Lymphocytes % (Manual) 5.0 % (13.4-35.0) L 12/27/17 05:20 Reactive Lymphs % (Man) 0 % 12/27/17 05:20 Monocytes % (Manual) 2.0 % (0.0-7.3) 12/27/17 05:20 Eosinophils % (Manual) 2.0 % (0.0-4.3) 12/27/17 05:20 Basophils % (Manual) 0 % (0.0-1.8) 12/27/17 05:20 Metamyelocytes % 0 % 12/27/17 05:20 Myelocytes % 0 % 12/27/17 05:20 Promyelocytes % 0 % 12/27/17 05:20 Blast Cells % 0 % 12/27/17 05:20 Nucleated RBC % Not Reportable 12/27/17 05:20 Seg Neutrophils # Man 22.4 K/mm3 (1.8-7.7) H 12/27/17 05:20 Band Neutrophils # 1.6 K/mm3 12/27/17 05:20 Lymphocytes # (Manual) 1.3 K/mm3 (1.2-5.4) 12/27/17 05:20 Abs React Lymphs (Man) 0.0 K/mm3 12/27/17 05:20 Monocytes # (Manual) 0.5 K/mm3 (0.0-0.8) 12/27/17 05:20 Eosinophils # (Manual) 0.5 K/mm3 (0.0-0.4) H 12/27/17 05:20 Basophils # (Manual) 0.0 K/mm3 (0.0-0.1) 12/27/17 05:20 Metamyelocytes # 0.0 K/mm3 12/27/17 05:20 Myelocytes # 0.0 K/mm3 12/27/17 05:20 Promyelocytes # 0.0 K/mm3 12/27/17 05:20 Blast Cells # 0.0 K/mm3 12/27/17 05:20 Pathologist Review 12/23/17 09:25 WBC Morphology Not Reportable 12/27/17 05:20 Hypersegmented Neuts Not Reportable 12/27/17 05:20 Hyposegmented Neuts Not Reportable 12/27/17 05:20 Hypogranular Neuts Not Reportable 12/27/17 05:20 Smudge Cells Not Reportable 12/27/17 05:20 Toxic Granulation Not Reportable 12/27/17 05:20 Toxic Vacuolation Not Reportable 12/27/17 05:20 Dohle Bodies Not Reportable 12/27/17 05:20 Pelger-Huet Anomaly Not Reportable 12/27/17 05:20 Mary Rods Not Reportable 12/27/17 05:20 Platelet Estimate Appears normal 12/27/17 05:20 Clumped Platelets Not Reportable 12/27/17 05:20 Plt Clumps, EDTA Not Reportable 12/27/17 05:20 Large Platelets Not Reportable 12/27/17 05:20 Giant Platelets Not Reportable 12/27/17 05:20 Platelet Satelliting Not Reportable 12/27/17 05:20 Plt Morphology Comment Not Reportable 12/27/17 05:20 RBC Morphology Not Reportable 12/27/17 05:20 Dimorphic RBCs Not Reportable 12/27/17 05:20 Polychromasia Not Reportable 12/27/17 05:20 Hypochromasia Not Reportable 12/27/17 05:20 Poikilocytosis Not Reportable 12/27/17 05:20 Anisocytosis 1+ 12/27/17 05:20 Microcytosis Not Reportable 12/27/17 05:20 Macrocytosis Not Reportable 12/27/17 05:20 Spherocytes Not Reportable 12/27/17 05:20 Pappenheimer Bodies Not Reportable 12/27/17 05:20 Sickle Cells Not Reportable 12/27/17 05:20 Target Cells Not Reportable 12/27/17 05:20 Tear Drop Cells Not Reportable 12/27/17 05:20 Ovalocytes Not Reportable 12/27/17 05:20 Stomatocytes 1+ 12/27/17 05:20 Helmet Cells Not Reportable 12/27/17 05:20 Arceo-Capit[place] Bodies Not Reportable 12/27/17 05:20 [place] Rings Not Reportable 12/27/17 05:20 [place] Cells Not Reportable 12/27/17 05:20 Bite Cells Not Reportable 12/27/17 05:20 Crenated Cell Not Reportable 12/27/17 05:20 Elliptocytes Not Reportable 12/27/17 05:20 Acanthocytes (Spur) Not Reportable 12/27/17 05:20 Rouleaux Not Reportable 12/27/17 05:20 Hemoglobin C Crystals Not Reportable 12/27/17 05:20 Schistocytes Not Reportable 12/27/17 05:20 Malaria parasites Not Reportable 12/27/17 05:20 Vipul Bodies Not Reportable 12/27/17 05:20 Hem Pathologist Commnt No 12/27/17 05:20 PT 14.9 Sec. (12.2-14.9) 12/15/17 04:05 INR 1.11 (0.87-1.13) 12/15/17 04:05 APTT 20.9 Sec. (24.2-36.6) L 12/15/17 04:05 POC ABG pH 7.503 (7.35-7.45) H 12/25/17 03:38 ABG pH 7.497 pH Units (7.350-7.450) H 12/28/17 00:39 POC ABG pCO2 35.8 (35-45) 12/25/17 03:38 ABG pCO2 39.6 mm Hg 12/28/17 00:39 POC ABG pO2 66 (80-105) L 12/25/17 03:38 ABG pO2 71.4 mm Hg (80.0-90.0) L 12/28/17 00:39 POC ABG HCO3 28.1 12/25/17 03:38 ABG HCO3 29.9 mmol/L (20.0-26.0) H 12/28/17 00:39 POC ABG Total CO2 29 12/25/17 03:38 POC ABG O2 Sat 95 12/25/17 03:38 ABG O2 Saturation 97.0 % (95.0-99.0) 12/28/17 00:39 ABG O2 Content 10.7 (0.0-44) 12/28/17 00:39 POC ABG Base Excess 5 12/25/17 03:38 ABG Base Excess 6.2 mmol/L (-2.0-3.0) H 12/28/17 00:39 ABG Hemoglobin 7.9 gm/dl (14.0-18.0) L 12/28/17 00:39 ABG Carboxyhemoglobin 1.8 % (0.0-5.0) 12/28/17 00:39 ABG Methemoglobin 0.3 % (0.0-1.5) 12/28/17 00:39 VBG pH 7.472 (7.320-7.420) H 12/12/17 19:18 Oxyhemoglobin 94.9 % (95.0-99.0) L 12/28/17 00:39 FiO2 75 % 12/28/17 00:39 Sodium 143 mmol/L (137-145) 12/28/17 08:47 Potassium 2.2 mmol/L (3.6-5.0) L* D 12/28/17 08:47 Chloride 100.5 mmol/L (98-107) 12/28/17 08:47 Carbon Dioxide 29 mmol/L (22-30) 12/28/17 08:47 Anion Gap 16 mmol/L 12/28/17 08:47 BUN 5 mg/dL (9-20) L 12/28/17 08:47 Creatinine 0.5 mg/dL (0.8-1.5) L 12/28/17 08:47 Estimated GFR > 60 ml/min 12/28/17 08:47 BUN/Creatinine Ratio 10 % 12/28/17 08:47 Glucose 106 mg/dL (75-100) H 12/28/17 08:47 POC Glucose 108 (70-105) H 12/28/17 05:17 Lactic Acid 2.00 mmol/L (0.7-2.0) 12/13/17 19:38 Calcium 8.3 mg/dL (8.4-10.2) L 12/28/17 08:47 Magnesium 1.70 mg/dL (1.7-2.3) 12/27/17 05:20 Total Bilirubin 4.60 mg/dL (0.1-1.2) H 12/12/17 19:02 AST 93 units/L (5-40) H 12/12/17 19:02 ALT 112 units/L (7-56) H 12/12/17 19:02 Alkaline Phosphatase 80 units/L (35-129) 12/12/17 19:02 C-Reactive Protein 7.10 mg/dL (0.00-1.30) H 12/20/17 13:40 NT-Pro-B Natriuret Pep 409.9 pg/mL (0-450) 12/12/17 19:02 Total Protein 6.5 g/dL (6.3-8.2) 12/12/17 19:02 Albumin 2.5 g/dL (3.9-5) L 12/12/17 19:02 Albumin/Globulin Ratio 0.6 % 12/12/17 19:02 Triglycerides 1042 mg/dL (2-149) H 12/20/17 13:40 Amylase 20 units/L (27-131) L 12/13/17 13:47 Lipase 9 units/L (13-60) L 12/13/17 13:47 Urine Color Ne[place] (Yellow) 12/15/17 17:00 Urine Turbidity Hazy (Clear) 12/15/17 17:00 Urine pH 6.0 (5.0-7.0) 12/15/17 17:00 Ur Specific [place] 1.027 (1.003-1.030) 12/15/17 17:00 Urine Protein 30 mg/dl mg/dL (Negative) 12/15/17 17:00 Urine Glucose (UA) Neg mg/dL (Negative) 12/15/17 17:00 Urine Ketones Tr mg/dL (Negative) 12/15/17 17:00 Urine Blood Lg (Negative) 12/15/17 17:00 Urine Nitrite Neg (Negative) 12/15/17 17:00 Urine Bilirubin Neg (Negative) 12/15/17 17:00 Urine Ictotest Positive (Negative) 12/12/17 20:42 Urine Urobilinogen < 2.0 mg/dL (<2.0) 12/15/17 17:00 Ur Leukocyte Esterase Tr (Negative) 12/15/17 17:00 Urine WBC (Auto) 38.0 /HPF (0.0-6.0) H 12/15/17 17:00 Urine RBC (Auto) 65.0 /HPF (0.0-6.0) 12/15/17 17:00 U Epithel Cells (Auto) < 1.0 /HPF (0-13.0) 12/12/17 20:42 Urine Bacteria (Auto) 1+ /HPF (Negative) 12/15/17 17:00 Urine Mucus 1+ /HPF 12/12/17 20:42 Vancomycin Trough 22.5 ug/mL (5.0-20.0) H 12/25/17 12:58 JERMAIN Screen Negative (Negative) 12/18/17 16:44 Proteinase 3 (PR3) Ab <1.0 AI (<1.0) 12/18/17 16:33 Myeloperoxidase Ab <1.0 AI (<1.0) 12/18/17 16:33 Complement C3 113 mg/dL (82-185) 12/18/17 16:33 Complement C4 15 mg/dL (15-53) 12/18/17 16:33 Hepatitis A IgM Ab Non-reactive (NonReactive) 12/20/17 13:40 Hep Bs Antigen Non-reactive (Negative) 12/20/17 13:40 Hep B Core IgM Ab Non-reactive (NonReactive) 12/20/17 13:40 Hepatitis C Antibody Non-reactive (NonReactive) 12/20/17 13:40 HIV 1&2 Antibody Rapid Non react (Non React) 12/20/17 13:40 HIV P24 Antigen Non react (Non React) 12/20/17 13:40 Influenza A (Rapid) Negative (Negative) 12/12/17 22:00 Influenza B (Rapid) Negative (Negative) 12/12/17 22:00 Urine Legionella Ag Not detected (Not Detected) 12/14/17 16:15 Miscellaneous Test Flexitest 1 12/14/17 16:15
--- NOTE | 2017-12-28 10:26 | XRay Report ---
AP CHEST: HISTORY: Hypoxemia The endotracheal tube and nasogastric tube have been removed. The right arm PICC remains in good position. Patchy infiltrate in the right lung has decreased by 50%. The remainder of the examination is unchanged. IMPRESSION: Decreased right lung infiltrate.
[2017-12-28] MEDS ORDERED: NORMODYNE IV PRN (10:39)
--- NOTE | 2017-12-28 10:47 | Progress Note ---
Assessment and Plan 47 y/o male with acute respiratory failure thought secondary to H. Flu now with H. Flu bacteremia, sepsis and persistent fevers. 1. Acute respiratory failure. patient back on bipap after wearing high flow on yesterday. Work of breathing is increasing. CXR to me shows worsening pulmonary edema. With elevated BP and uncontrolled heart rate. This is not unreasonable. Potassium remains low. Will aggressively replace today, repeat K this afternoon and then consider lasix therapy later this evening. Continue bipap therapy for now. Patient is high risk for re-intubation 2. Abx therapy per ID, infiltrate has improved. 3. Aggressive replacement of K. Will repeat later tonight and give more this evening. 4. Continue ICU monitoring given current respiratory status. Will restart precedex therapy to help with anxiety. Also changed majority of medications over to IV since taking off bipap therapy could lead to worsening respiratory failure. CCT 31 minutes. Subjective Date of service: 12/28/17 Principal diagnosis: ARDS Interval history: patient tachypnic, tachycardic and hypertensive this am. Still making good urine. not at bedside. Patient awake. Follows commands. Objective Vital Signs - 12hr 12/27/17 12/27/17 12/27/17 23:00 23:48 23:58 Temperature 97.7 F Pulse Rate 122 H 118 H Pulse Rate [ Anterior Bilateral Throughout] Pulse Rate [ From Monitor] Respiratory 14 Rate Respiratory Rate [Anterior Bilateral Throughout] Blood Pressure 157/76 150/84 O2 Sat by Pulse 89 Oximetry 12/28/17 12/28/17 12/28/17 00:00 01:00 02:00 Temperature Pulse Rate 110 H 90 96 H Pulse Rate [ Anterior Bilateral Throughout] Pulse Rate [ From Monitor] Respiratory 60 H 21 16 Rate Respiratory Rate [Anterior Bilateral Throughout] Blood Pressure 150/84 134/79 148/85 O2 Sat by Pulse 92 95 93 Oximetry 12/28/17 12/28/17 12/28/17 02:43 03:00 03:17 Temperature Pulse Rate 101 H 102 H 103 H Pulse Rate [ Anterior Bilateral Throughout] Pulse Rate [ From Monitor] Respiratory 46 H 37 H Rate Respiratory Rate [Anterior Bilateral Throughout] Blood Pressure 155/83 155/83 O2 Sat by Pulse 92 91 Oximetry 12/28/17 12/28/17 12/28/17 04:00 05:00 06:00 Temperature 98.7 F Pulse Rate 107 H 112 H 113 H Pulse Rate [ Anterior Bilateral Throughout] Pulse Rate [ From Monitor] Respiratory 46 H 54 H 26 H Rate Respiratory Rate [Anterior Bilateral Throughout] Blood Pressure 139/78 146/77 136/82 O2 Sat by Pulse 93 83 L 90 Oximetry 12/28/17 12/28/17 12/28/17 07:00 08:00 08:05 Temperature 100.3 F H Pulse Rate 118 H 117 H 117 H Pulse Rate [ Anterior Bilateral Throughout] Pulse Rate [ From Monitor] Respiratory 15 58 H 36 H Rate Respiratory Rate [Anterior Bilateral Throughout] Blood Pressure 144/78 146/82 146/82 O2 Sat by Pulse 94 95 93 Oximetry 12/28/17 12/28/17 12/28/17 08:09 08:10 08:29 Temperature Pulse Rate Pulse Rate [ 118 H 124 H Anterior Bilateral Throughout] Pulse Rate [ 119 H From Monitor] Respiratory 30 H Rate Respiratory 36 H 38 H Rate [Anterior Bilateral Throughout] Blood Pressure O2 Sat by Pulse 92 Oximetry 12/28/17 12/28/17 09:00 09:56 Temperature Pulse Rate 122 H 120 H Pulse Rate [ Anterior Bilateral Throughout] Pulse Rate [ From Monitor] Respiratory 59 H Rate Respiratory Rate [Anterior Bilateral Throughout] Blood Pressure 154/76 162/80 O2 Sat by Pulse 93 Oximetry Constitutional: other (intubated, sedated) Eyes: non-icteric ENT: oropharynx moist Neck: supple Effort: normal Ascultation: Right: rales, Bilateral: diminished breath sounds, other (coarse BS bilaterally) Percussion: Bilateral: not dull Tactile fremitus: Bilateral: normal Cardiovascular: regular rate and rhythm, other (tachycardic) Gastrointestinal: normoactive bowel sounds, soft, non-tender, non-distended, other (obese) Integumentary: normal Extremities: no cyanosis, no edema, pink and warm Neurologic: normal mental status (at this time of examination) Psychiatric: other (not able to assess) CBC and BMP: 12/28/17 09:10 12/28/17 08:47 ABG, PT/INR, D-dimer: ABG POC ABG pH 7.503 (7.35-7.45) H 12/25/17 03:38 ABG pH 7.497 pH Units (7.350-7.450) H 12/28/17 00:39 POC ABG pCO2 35.8 (35-45) 12/25/17 03:38 ABG pCO2 39.6 mm Hg 12/28/17 00:39 POC ABG pO2 66 (80-105) L 12/25/17 03:38 ABG pO2 71.4 mm Hg (80.0-90.0) L 12/28/17 00:39 POC ABG HCO3 28.1 12/25/17 03:38 POC ABG Total CO2 29 12/25/17 03:38 POC ABG O2 Sat 95 12/25/17 03:38 ABG O2 Saturation 97.0 % (95.0-99.0) 12/28/17 00:39 PT/INR, D-dimer PT 14.9 Sec. (12.2-14.9) 12/15/17 04:05 INR 1.11 (0.87-1.13) 12/15/17 04:05 Abnormal lab findings: Abnormal Labs 12/12/17 12/12/17 12/12/17 18:57 19:02 19:02 WBC RBC Hgb Hct MCV 96 H MCH 34 H MCHC 35 H RDW Plt Count 46 L Seg Neuts % (Manual) 77.0 H Lymphocytes % (Manual) 13.0 L Monocytes % (Manual) Nucleated RBC % Seg Neutrophils # Man Lymphocytes # (Manual) 0.9 L Monocytes # (Manual) Eosinophils # (Manual) APTT POC ABG pH ABG pH POC ABG pCO2 POC ABG pO2 ABG pO2 ABG HCO3 ABG Base Excess ABG Hemoglobin VBG pH Oxyhemoglobin Sodium Potassium Chloride Carbon Dioxide BUN Creatinine Glucose POC Glucose 321 H Lactic Acid 4.00 H* Calcium Total Bilirubin AST ALT C-Reactive Protein Albumin Triglycerides Amylase Lipase Urine WBC (Auto) Vancomycin Trough 12/12/17 12/12/17 12/12/17 19:02 19:18 20:55 WBC RBC Hgb Hct MCV MCH MCHC RDW Plt Count Seg Neuts % (Manual) Lymphocytes % (Manual) Monocytes % (Manual) Nucleated RBC % Seg Neutrophils # Man Lymphocytes # (Manual) Monocytes # (Manual) Eosinophils # (Manual) APTT POC ABG pH ABG pH POC ABG pCO2 POC ABG pO2 ABG pO2 ABG HCO3 ABG Base Excess ABG Hemoglobin VBG pH 7.472 H Oxyhemoglobin Sodium 124 L Potassium Chloride 80.0 L Carbon Dioxide 20 L BUN Creatinine Glucose 382 H POC Glucose 283 H Lactic Acid Calcium 8.1 L Total Bilirubin 4.60 H AST 93 H ALT 112 H C-Reactive Protein Albumin 2.5 L Triglycerides Amylase Lipase Urine WBC (Auto) Vancomycin Trough 12/12/17 12/13/17 12/13/17 21:41 00:45 01:29 WBC RBC Hgb Hct MCV MCH MCHC RDW Plt Count Seg Neuts % (Manual) Lymphocytes % (Manual) Monocytes % (Manual) Nucleated RBC % Seg Neutrophils # Man Lymphocytes # (Manual) Monocytes # (Manual) Eosinophils # (Manual) APTT POC ABG pH ABG pH POC ABG pCO2 POC ABG pO2 ABG pO2 ABG HCO3 ABG Base Excess ABG Hemoglobin VBG pH Oxyhemoglobin Sodium Potassium Chloride Carbon Dioxide BUN Creatinine Glucose POC Glucose Lactic Acid 4.20 H* 2.70 H* 3.30 H* Calcium Total Bilirubin AST ALT C-Reactive Protein Albumin Triglycerides Amylase Lipase Urine WBC (Auto) Vancomycin Trough 12/13/17 12/13/17 12/13/17 02:19 03:44 05:58 WBC RBC Hgb Hct MCV 97 H MCH 34 H MCHC 35 H RDW Plt Count 41 L Seg Neuts % (Manual) Lymphocytes % (Manual) 8.0 L Monocytes % (Manual) 8.0 H Nucleated RBC % Seg Neutrophils # Man Lymphocytes # (Manual) 0.6 L Monocytes # (Manual) Eosinophils # (Manual) APTT POC ABG pH 7.334 L ABG pH POC ABG pCO2 POC ABG pO2 43 L ABG pO2 ABG HCO3 ABG Base Excess ABG Hemoglobin VBG pH Oxyhemoglobin Sodium Potassium Chloride Carbon Dioxide BUN Creatinine Glucose POC Glucose Lactic Acid 2.60 H* Calcium Total Bilirubin AST ALT C-Reactive Protein Albumin Triglycerides Amylase Lipase Urine WBC (Auto) Vancomycin Trough 12/13/17 12/13/17 12/13/17 05:58 05:58 05:58 WBC RBC Hgb Hct MCV MCH MCHC RDW Plt Count Seg Neuts % (Manual) Lymphocytes % (Manual) Monocytes % (Manual) Nucleated RBC % Seg Neutrophils # Man Lymphocytes # (Manual) Monocytes # (Manual) Eosinophils # (Manual) APTT POC ABG pH ABG pH POC ABG pCO2 POC ABG pO2 ABG pO2 ABG HCO3 ABG Base Excess ABG Hemoglobin VBG pH Oxyhemoglobin Sodium 132 L D Potassium Chloride 90.0 L Carbon Dioxide 20 L BUN Creatinine Glucose 346 H POC Glucose 298 H Lactic Acid 4.50 H* Calcium 8.2 L Total Bilirubin AST ALT C-Reactive Protein Albumin Triglycerides Amylase Lipase Urine WBC (Auto) Vancomycin Trough 12/13/17 12/13/17 12/13/17 06:27 09:42 11:47 WBC RBC Hgb Hct MCV MCH MCHC RDW Plt Count Seg Neuts % (Manual) Lymphocytes % (Manual) Monocytes % (Manual) Nucleated RBC % Seg Neutrophils # Man Lymphocytes # (Manual) Monocytes # (Manual) Eosinophils # (Manual) APTT POC ABG pH 7.267 L 7.298 L ABG pH POC ABG pCO2 50.4 H 51.3 H POC ABG pO2 47 L 43 L ABG pO2 ABG HCO3 ABG Base Excess ABG Hemoglobin VBG pH Oxyhemoglobin Sodium Potassium Chloride Carbon Dioxide BUN Creatinine Glucose POC Glucose 376 H Lactic Acid Calcium Total Bilirubin AST ALT C-Reactive Protein Albumin Triglycerides Amylase Lipase Urine WBC (Auto) Vancomycin Trough 12/13/17 12/13/17 12/13/17 12:03 13:47 13:47 WBC RBC Hgb Hct MCV MCH MCHC RDW Plt Count Seg Neuts % (Manual) Lymphocytes % (Manual) Monocytes % (Manual) Nucleated RBC % Seg Neutrophils # Man Lymphocytes # (Manual) Monocytes # (Manual) Eosinophils # (Manual) APTT POC ABG pH 7.264 L ABG pH POC ABG pCO2 54.9 H POC ABG pO2 55 L ABG pO2 ABG HCO3 ABG Base Excess ABG Hemoglobin VBG pH Oxyhemoglobin Sodium Potassium Chloride Carbon Dioxide BUN Creatinine Glucose POC Glucose Lactic Acid 2.80 H* Calcium Total Bilirubin AST ALT C-Reactive Protein Albumin Triglycerides Amylase 20 L Lipase 9 L Urine WBC (Auto) Vancomycin Trough 12/13/17 12/13/17 12/13/17 15:36 17:39 21:47 WBC RBC Hgb Hct MCV MCH MCHC RDW Plt Count Seg Neuts % (Manual) Lymphocytes % (Manual) Monocytes % (Manual) Nucleated RBC % Seg Neutrophils # Man Lymphocytes # (Manual) Monocytes # (Manual) Eosinophils # (Manual) APTT POC ABG pH 7.229 L 7.225 L ABG pH POC ABG pCO2 60.9 H 66.3 H POC ABG pO2 42 L 41 L ABG pO2 ABG HCO3 ABG Base Excess ABG Hemoglobin VBG pH Oxyhemoglobin Sodium Potassium Chloride Carbon Dioxide BUN Creatinine Glucose POC Glucose 289 H Lactic Acid Calcium Total Bilirubin AST ALT C-Reactive Protein Albumin Triglycerides Amylase Lipase Urine WBC (Auto) Vancomycin Trough 12/13/17 12/14/17 12/14/17 22:19 02:03 05:16 WBC RBC Hgb Hct MCV MCH MCHC RDW Plt Count Seg Neuts % (Manual) Lymphocytes % (Manual) Monocytes % (Manual) Nucleated RBC % Seg Neutrophils # Man Lymphocytes # (Manual) Monocytes # (Manual) Eosinophils # (Manual) APTT POC ABG pH 7.247 L ABG pH POC ABG pCO2 61.2 H POC ABG pO2 53 L ABG pO2 ABG HCO3 ABG Base Excess ABG Hemoglobin VBG pH Oxyhemoglobin Sodium Potassium Chloride Carbon Dioxide BUN Creatinine Glucose POC Glucose 274 H 295 H Lactic Acid Calcium Total Bilirubin AST ALT C-Reactive Protein Albumin Triglycerides Amylase Lipase Urine WBC (Auto) Vancomycin Trough 12/14/17 12/14/17 12/14/17 05:32 12:04 16:22 WBC RBC Hgb Hct MCV MCH MCHC RDW Plt Count Seg Neuts % (Manual) Lymphocytes % (Manual) Monocytes % (Manual) Nucleated RBC % Seg Neutrophils # Man Lymphocytes # (Manual) Monocytes # (Manual) Eosinophils # (Manual) APTT POC ABG pH ABG pH POC ABG pCO2 POC ABG pO2 ABG pO2 ABG HCO3 ABG Base Excess ABG Hemoglobin VBG pH Oxyhemoglobin Sodium Potassium Chloride Carbon Dioxide BUN Creatinine Glucose POC Glucose 230 H 241 H 231 H Lactic Acid Calcium Total Bilirubin AST ALT C-Reactive Protein Albumin Triglycerides Amylase Lipase Urine WBC (Auto) Vancomycin Trough 12/14/17 12/15/17 12/15/17 21:29 02:29 03:25 WBC RBC Hgb Hct MCV MCH MCHC RDW Plt Count Seg Neuts % (Manual) Lymphocytes % (Manual) Monocytes % (Manual) Nucleated RBC % Seg Neutrophils # Man Lymphocytes # (Manual) Monocytes # (Manual) Eosinophils # (Manual) APTT POC ABG pH 7.330 L ABG pH POC ABG pCO2 55.3 H POC ABG pO2 59 L ABG pO2 ABG HCO3 ABG Base Excess ABG Hemoglobin VBG pH Oxyhemoglobin Sodium Potassium Chloride Carbon Dioxide BUN Creatinine Glucose POC Glucose 258 H 246 H Lactic Acid Calcium Total Bilirubin AST ALT C-Reactive Protein Albumin Triglycerides Amylase Lipase Urine WBC (Auto) Vancomycin Trough 12/15/17 12/15/17 12/15/17 04:05 04:05 04:05 WBC 15.0 H RBC 3.40 L Hgb 11.3 L D Hct 33.8 L D MCV 100 H MCH 33 H MCHC RDW Plt Count 48 L Seg Neuts % (Manual) Lymphocytes % (Manual) 3.0 L Monocytes % (Manual) Nucleated RBC % 2.0 H Seg Neutrophils # Man Lymphocytes # (Manual) 0.5 L Monocytes # (Manual) 0.9 H Eosinophils # (Manual) APTT 20.9 L POC ABG pH ABG pH POC ABG pCO2 POC ABG pO2 ABG pO2 ABG HCO3 ABG Base Excess ABG Hemoglobin VBG pH Oxyhemoglobin Sodium Potassium Chloride Carbon Dioxide BUN 27 H Creatinine Glucose 258 H POC Glucose Lactic Acid Calcium 8.1 L Total Bilirubin AST ALT C-Reactive Protein Albumin Triglycerides Amylase Lipase Urine WBC (Auto) Vancomycin Trough 12/15/17 12/15/17 12/15/17 05:32 11:17 14:59 WBC RBC Hgb Hct MCV MCH MCHC RDW Plt Count Seg Neuts % (Manual) Lymphocytes % (Manual) Monocytes % (Manual) Nucleated RBC % Seg Neutrophils # Man Lymphocytes # (Manual) Monocytes # (Manual) Eosinophils # (Manual) APTT POC ABG pH ABG pH POC ABG pCO2 POC ABG pO2 ABG pO2 ABG HCO3 ABG Base Excess ABG Hemoglobin VBG pH Oxyhemoglobin Sodium Potassium Chloride Carbon Dioxide BUN Creatinine Glucose POC Glucose 247 H 268 H 233 H Lactic Acid Calcium Total Bilirubin AST ALT C-Reactive Protein Albumin Triglycerides Amylase Lipase Urine WBC (Auto) Vancomycin Trough 12/15/17 12/15/17 12/15/17 17:00 18:59 21:37 WBC RBC Hgb Hct MCV MCH MCHC RDW Plt Count Seg Neuts % (Manual) Lymphocytes % (Manual) Monocytes % (Manual) Nucleated RBC % Seg Neutrophils # Man Lymphocytes # (Manual) Monocytes # (Manual) Eosinophils # (Manual) APTT POC ABG pH ABG pH POC ABG pCO2 POC ABG pO2 ABG pO2 ABG HCO3 ABG Base Excess ABG Hemoglobin VBG pH Oxyhemoglobin Sodium Potassium Chloride Carbon Dioxide BUN Creatinine Glucose POC Glucose 195 H 208 H Lactic Acid Calcium Total Bilirubin AST ALT C-Reactive Protein Albumin Triglycerides Amylase Lipase Urine WBC (Auto) 38.0 H Vancomycin Trough 12/16/17 12/16/17 12/16/17 03:17 03:33 04:18 WBC 16.4 H RBC 3.50 L Hgb 11.3 L Hct 35.4 L MCV 101 H MCH MCHC RDW Plt Count 54 L Seg Neuts % (Manual) Lymphocytes % (Manual) Monocytes % (Manual) Nucleated RBC % Seg Neutrophils # Man Lymphocytes # (Manual) Monocytes # (Manual) Eosinophils # (Manual) APTT POC ABG pH ABG pH POC ABG pCO2 47.7 H POC ABG pO2 ABG pO2 ABG HCO3 ABG Base Excess ABG Hemoglobin VBG pH Oxyhemoglobin Sodium Potassium Chloride Carbon Dioxide BUN Creatinine Glucose POC Glucose 227 H Lactic Acid Calcium Total Bilirubin AST ALT C-Reactive Protein Albumin Triglycerides Amylase Lipase Urine WBC (Auto) Vancomycin Trough 12/16/17 12/16/17 12/16/17 04:18 05:08 10:01 WBC RBC Hgb Hct MCV MCH MCHC RDW Plt Count Seg Neuts % (Manual) Lymphocytes % (Manual) Monocytes % (Manual) Nucleated RBC % Seg Neutrophils # Man Lymphocytes # (Manual) Monocytes # (Manual) Eosinophils # (Manual) APTT POC ABG pH ABG pH POC ABG pCO2 POC ABG pO2 ABG pO2 ABG HCO3 ABG Base Excess ABG Hemoglobin VBG pH Oxyhemoglobin Sodium 147 H Potassium Chloride 107.4 H Carbon Dioxide BUN 28 H Creatinine Glucose 240 H POC Glucose 227 H 190 H Lactic Acid Calcium 8.3 L Total Bilirubin AST ALT C-Reactive Protein Albumin Triglycerides Amylase Lipase Urine WBC (Auto) Vancomycin Trough 12/16/17 12/16/17 12/16/17 14:15 17:51 21:14 WBC RBC Hgb Hct MCV MCH MCHC RDW Plt Count Seg Neuts % (Manual) Lymphocytes % (Manual) Monocytes % (Manual) Nucleated RBC % Seg Neutrophils # Man Lymphocytes # (Manual) Monocytes # (Manual) Eosinophils # (Manual) APTT POC ABG pH ABG pH POC ABG pCO2 POC ABG pO2 ABG pO2 ABG HCO3 ABG Base Excess ABG Hemoglobin VBG pH Oxyhemoglobin Sodium Potassium Chloride Carbon Dioxide BUN Creatinine Glucose POC Glucose 279 H 272 H 260 H Lactic Acid Calcium Total Bilirubin AST ALT C-Reactive Protein Albumin Triglycerides Amylase Lipase Urine WBC (Auto) Vancomycin Trough 12/17/17 12/17/17 12/17/17 02:41 04:28 04:28 WBC 19.1 H RBC 3.50 L Hgb 11.4 L Hct 35.3 L MCV 101 H MCH 33 H MCHC RDW Plt Count 65 L Seg Neuts % (Manual) Lymphocytes % (Manual) Monocytes % (Manual) Nucleated RBC % Seg Neutrophils # Man Lymphocytes # (Manual) Monocytes # (Manual) Eosinophils # (Manual) APTT POC ABG pH ABG pH POC ABG pCO2 POC ABG pO2 ABG pO2 ABG HCO3 ABG Base Excess ABG Hemoglobin VBG pH Oxyhemoglobin Sodium 153 H Potassium Chloride 111.2 H Carbon Dioxide 31 H BUN 28 H Creatinine Glucose 248 H POC Glucose 300 H Lactic Acid Calcium Total Bilirubin AST ALT C-Reactive Protein Albumin Triglycerides Amylase Lipase Urine WBC (Auto) Vancomycin Trough 12/17/17 12/17/17 12/17/17 05:15 05:38 10:16 WBC RBC Hgb Hct MCV MCH MCHC RDW Plt Count Seg Neuts % (Manual) Lymphocytes % (Manual) Monocytes % (Manual) Nucleated RBC % Seg Neutrophils # Man Lymphocytes # (Manual) Monocytes # (Manual) Eosinophils # (Manual) APTT POC ABG pH ABG pH POC ABG pCO2 50.3 H POC ABG pO2 120 H ABG pO2 ABG HCO3 ABG Base Excess ABG Hemoglobin VBG pH Oxyhemoglobin Sodium Potassium Chloride Carbon Dioxide BUN Creatinine Glucose POC Glucose 231 H 196 H Lactic Acid Calcium Total Bilirubin AST ALT C-Reactive Protein Albumin Triglycerides Amylase Lipase Urine WBC (Auto) Vancomycin Trough 12/17/17 12/17/17 12/17/17 14:22 18:14 21:35 WBC RBC Hgb Hct MCV MCH MCHC RDW Plt Count Seg Neuts % (Manual) Lymphocytes % (Manual) Monocytes % (Manual) Nucleated RBC % Seg Neutrophils # Man Lymphocytes # (Manual) Monocytes # (Manual) Eosinophils # (Manual) APTT POC ABG pH ABG pH POC ABG pCO2 POC ABG pO2 ABG pO2 ABG HCO3 ABG Base Excess ABG Hemoglobin VBG pH Oxyhemoglobin Sodium Potassium Chloride Carbon Dioxide BUN Creatinine Glucose POC Glucose 234 H 215 H 159 H Lactic Acid Calcium Total Bilirubin AST ALT C-Reactive Protein Albumin Triglycerides Amylase Lipase Urine WBC (Auto) Vancomycin Trough 12/18/17 12/18/17 12/18/17 00:53 02:58 06:03 WBC RBC Hgb Hct MCV MCH MCHC RDW Plt Count Seg Neuts % (Manual) Lymphocytes % (Manual) Monocytes % (Manual) Nucleated RBC % Seg Neutrophils # Man Lymphocytes # (Manual) Monocytes # (Manual) Eosinophils # (Manual) APTT POC ABG pH ABG pH POC ABG pCO2 56.4 H POC ABG pO2 46 L ABG pO2 ABG HCO3 ABG Base Excess ABG Hemoglobin VBG pH Oxyhemoglobin Sodium Potassium Chloride Carbon Dioxide BUN Creatinine Glucose POC Glucose 176 H 143 H Lactic Acid Calcium Total Bilirubin AST ALT C-Reactive Protein Albumin Triglycerides Amylase Lipase Urine WBC (Auto) Vancomycin Trough 12/18/17 12/18/17 12/18/17 07:59 09:20 09:20 WBC 27.4 H RBC 3.57 L Hgb 11.4 L Hct MCV 101 H MCH MCHC RDW Plt Count 64 L Seg Neuts % (Manual) Lymphocytes % (Manual) Monocytes % (Manual) Nucleated RBC % Seg Neutrophils # Man Lymphocytes # (Manual) Monocytes # (Manual) Eosinophils # (Manual) APTT POC ABG pH ABG pH POC ABG pCO2 POC ABG pO2 ABG pO2 ABG HCO3 ABG Base Excess ABG Hemoglobin VBG pH Oxyhemoglobin Sodium 152 H Potassium Chloride 107.9 H Carbon Dioxide 34 H BUN 23 H Creatinine 0.7 L Glucose 181 H POC Glucose 197 H Lactic Acid Calcium Total Bilirubin AST ALT C-Reactive Protein Albumin Triglycerides Amylase Lipase Urine WBC (Auto) Vancomycin Trough 12/18/17 12/18/17 12/18/17 10:22 15:03 18:15 WBC RBC Hgb Hct MCV MCH MCHC RDW Plt Count Seg Neuts % (Manual) Lymphocytes % (Manual) Monocytes % (Manual) Nucleated RBC % Seg Neutrophils # Man Lymphocytes # (Manual) Monocytes # (Manual) Eosinophils # (Manual) APTT POC ABG pH ABG pH POC ABG pCO2 POC ABG pO2 ABG pO2 ABG HCO3 ABG Base Excess ABG Hemoglobin VBG pH Oxyhemoglobin Sodium Potassium Chloride Carbon Dioxide BUN Creatinine Glucose POC Glucose 195 H 225 H 238 H Lactic Acid Calcium Total Bilirubin AST ALT C-Reactive Protein Albumin Triglycerides Amylase Lipase Urine WBC (Auto) Vancomycin Trough 12/18/17 12/18/17 12/19/17 18:29 21:53 00:18 WBC RBC Hgb Hct MCV MCH MCHC RDW Plt Count Seg Neuts % (Manual) Lymphocytes % (Manual) Monocytes % (Manual) Nucleated RBC % Seg Neutrophils # Man Lymphocytes # (Manual) Monocytes # (Manual) Eosinophils # (Manual) APTT POC ABG pH 7.476 H ABG pH POC ABG pCO2 50.4 H POC ABG pO2 158 H ABG pO2 ABG HCO3 ABG Base Excess ABG Hemoglobin VBG pH Oxyhemoglobin Sodium Potassium Chloride Carbon Dioxide BUN Creatinine Glucose POC Glucose 231 H 263 H Lactic Acid Calcium Total Bilirubin AST ALT C-Reactive Protein Albumin Triglycerides Amylase Lipase Urine WBC (Auto) Vancomycin Trough 12/19/17 12/19/17 12/19/17 02:09 04:07 04:07 WBC 25.9 H RBC 3.25 L Hgb 10.6 L Hct 32.8 L MCV 101 H MCH 33 H MCHC RDW Plt Count 67 L Seg Neuts % (Manual) Lymphocytes % (Manual) 4.0 L Monocytes % (Manual) Nucleated RBC % Seg Neutrophils # Man 14.8 H Lymphocytes # (Manual) 1.0 L Monocytes # (Manual) Eosinophils # (Manual) APTT POC ABG pH ABG pH POC ABG pCO2 POC ABG pO2 ABG pO2 ABG HCO3 ABG Base Excess ABG Hemoglobin VBG pH Oxyhemoglobin Sodium 148 H Potassium Chloride Carbon Dioxide BUN 31 H Creatinine Glucose 314 H POC Glucose 300 H Lactic Acid Calcium 8.1 L Total Bilirubin AST ALT C-Reactive Protein Albumin Triglycerides Amylase Lipase Urine WBC (Auto) Vancomycin Trough 12/19/17 12/19/17 12/19/17 05:15 05:41 07:57 WBC RBC Hgb Hct MCV MCH MCHC RDW Plt Count Seg Neuts % (Manual) Lymphocytes % (Manual) Monocytes % (Manual) Nucleated RBC % Seg Neutrophils # Man Lymphocytes # (Manual) Monocytes # (Manual) Eosinophils # (Manual) APTT POC ABG pH 7.507 H ABG pH POC ABG pCO2 POC ABG pO2 ABG pO2 ABG HCO3 ABG Base Excess ABG Hemoglobin VBG pH Oxyhemoglobin Sodium Potassium Chloride Carbon Dioxide BUN Creatinine Glucose POC Glucose 331 H 307 H Lactic Acid Calcium Total Bilirubin AST ALT C-Reactive Protein Albumin Triglycerides Amylase Lipase Urine WBC (Auto) Vancomycin Trough 12/19/17 12/19/17 12/19/17 10:21 14:48 17:59 WBC RBC Hgb Hct MCV MCH MCHC RDW Plt Count Seg Neuts % (Manual) Lymphocytes % (Manual) Monocytes % (Manual) Nucleated RBC % Seg Neutrophils # Man Lymphocytes # (Manual) Monocytes # (Manual) Eosinophils # (Manual) APTT POC ABG pH ABG pH POC ABG pCO2 POC ABG pO2 ABG pO2 ABG HCO3 ABG Base Excess ABG Hemoglobin VBG pH Oxyhemoglobin Sodium Potassium Chloride Carbon Dioxide BUN Creatinine Glucose POC Glucose 358 H 327 H 355 H Lactic Acid Calcium Total Bilirubin AST ALT C-Reactive Protein Albumin Triglycerides Amylase Lipase Urine WBC (Auto) Vancomycin Trough 12/19/17 12/20/17 12/20/17 21:38 02:21 03:42 WBC RBC Hgb Hct MCV MCH MCHC RDW Plt Count Seg Neuts % (Manual) Lymphocytes % (Manual) Monocytes % (Manual) Nucleated RBC % Seg Neutrophils # Man Lymphocytes # (Manual) Monocytes # (Manual) Eosinophils # (Manual) APTT POC ABG pH 7.494 H ABG pH POC ABG pCO2 POC ABG pO2 ABG pO2 ABG HCO3 ABG Base Excess ABG Hemoglobin VBG pH Oxyhemoglobin Sodium Potassium Chloride Carbon Dioxide BUN Creatinine Glucose POC Glucose 329 H 354 H Lactic Acid Calcium Total Bilirubin AST ALT C-Reactive Protein Albumin Triglycerides Amylase Lipase Urine WBC (Auto) Vancomycin Trough 12/20/17 12/20/17 12/20/17 04:08 04:08 04:08 WBC 22.7 H RBC 3.26 L Hgb 10.6 L Hct 32.9 L MCV 101 H MCH 33 H MCHC RDW Plt Count 78 L Seg Neuts % (Manual) 80.0 H Lymphocytes % (Manual) 6.0 L Monocytes % (Manual) Nucleated RBC % Seg Neutrophils # Man 18.2 H Lymphocytes # (Manual) Monocytes # (Manual) Eosinophils # (Manual) APTT POC ABG pH ABG pH POC ABG pCO2 POC ABG pO2 ABG pO2 ABG HCO3 ABG Base Excess ABG Hemoglobin VBG pH Oxyhemoglobin Sodium Potassium Chloride Carbon Dioxide 31 H BUN 30 H Creatinine 0.6 L Glucose 365 H POC Glucose Lactic Acid Calcium Total Bilirubin AST ALT C-Reactive Protein Albumin Triglycerides 981 H Amylase Lipase Urine WBC (Auto) Vancomycin Trough 12/20/17 12/20/17 12/20/17 05:15 10:47 13:40 WBC RBC Hgb Hct MCV MCH MCHC RDW Plt Count Seg Neuts % (Manual) Lymphocytes % (Manual) Monocytes % (Manual) Nucleated RBC % Seg Neutrophils # Man Lymphocytes # (Manual) Monocytes # (Manual) Eosinophils # (Manual) APTT POC ABG pH ABG pH POC ABG pCO2 POC ABG pO2 ABG pO2 ABG HCO3 ABG Base Excess ABG Hemoglobin VBG pH Oxyhemoglobin Sodium Potassium Chloride Carbon Dioxide BUN Creatinine Glucose POC Glucose 342 H 330 H Lactic Acid Calcium Total Bilirubin AST ALT C-Reactive Protein 7.10 H Albumin Triglycerides Amylase Lipase Urine WBC (Auto) Vancomycin Trough 12/20/17 12/20/17 12/20/17 13:40 14:52 16:55 WBC RBC Hgb Hct MCV MCH MCHC RDW Plt Count Seg Neuts % (Manual) Lymphocytes % (Manual) Monocytes % (Manual) Nucleated RBC % Seg Neutrophils # Man Lymphocytes # (Manual) Monocytes # (Manual) Eosinophils # (Manual) APTT POC ABG pH 7.484 H ABG pH POC ABG pCO2 POC ABG pO2 ABG pO2 ABG HCO3 ABG Base Excess ABG Hemoglobin VBG pH Oxyhemoglobin Sodium Potassium Chloride Carbon Dioxide BUN Creatinine Glucose POC Glucose 293 H Lactic Acid Calcium Total Bilirubin AST ALT C-Reactive Protein Albumin Triglycerides 1042 H Amylase Lipase Urine WBC (Auto) Vancomycin Trough 12/20/17 12/20/17 12/21/17 18:00 21:58 02:05 WBC RBC Hgb Hct MCV MCH MCHC RDW Plt Count Seg Neuts % (Manual) Lymphocytes % (Manual) Monocytes % (Manual) Nucleated RBC % Seg Neutrophils # Man Lymphocytes # (Manual) Monocytes # (Manual) Eosinophils # (Manual) APTT POC ABG pH ABG pH POC ABG pCO2 POC ABG pO2 ABG pO2 ABG HCO3 ABG Base Excess ABG Hemoglobin VBG pH Oxyhemoglobin Sodium Potassium Chloride Carbon Dioxide BUN Creatinine Glucose POC Glucose 268 H 272 H 229 H Lactic Acid Calcium Total Bilirubin AST ALT C-Reactive Protein Albumin Triglycerides Amylase Lipase Urine WBC (Auto) Vancomycin Trough 12/21/17 12/21/17 12/21/17 03:59 06:23 08:57 WBC RBC Hgb Hct MCV MCH MCHC RDW Plt Count Seg Neuts % (Manual) Lymphocytes % (Manual) Monocytes % (Manual) Nucleated RBC % Seg Neutrophils # Man Lymphocytes # (Manual) Monocytes # (Manual) Eosinophils # (Manual) APTT POC ABG pH 7.474 H ABG pH POC ABG pCO2 POC ABG pO2 71 L ABG pO2 ABG HCO3 ABG Base Excess ABG Hemoglobin VBG pH Oxyhemoglobin Sodium Potassium Chloride Carbon Dioxide BUN Creatinine Glucose POC Glucose 182 H 217 H Lactic Acid Calcium Total Bilirubin AST ALT C-Reactive Protein Albumin Triglycerides Amylase Lipase Urine WBC (Auto) Vancomycin Trough 12/21/17 12/21/17 12/21/17 13:59 18:00 21:20 WBC RBC Hgb Hct MCV MCH MCHC RDW Plt Count Seg Neuts % (Manual) Lymphocytes % (Manual) Monocytes % (Manual) Nucleated RBC % Seg Neutrophils # Man Lymphocytes # (Manual) Monocytes # (Manual) Eosinophils # (Manual) APTT POC ABG pH ABG pH POC ABG pCO2 POC ABG pO2 ABG pO2 ABG HCO3 ABG Base Excess ABG Hemoglobin VBG pH Oxyhemoglobin Sodium Potassium Chloride Carbon Dioxide BUN Creatinine Glucose POC Glucose 185 H 176 H 187 H Lactic Acid Calcium Total Bilirubin AST ALT C-Reactive Protein Albumin Triglycerides Amylase Lipase Urine WBC (Auto) Vancomycin Trough 12/21/17 12/22/17 12/22/17 23:48 04:39 05:30 WBC RBC Hgb Hct MCV MCH MCHC RDW Plt Count Seg Neuts % (Manual) Lymphocytes % (Manual) Monocytes % (Manual) Nucleated RBC % Seg Neutrophils # Man Lymphocytes # (Manual) Monocytes # (Manual) Eosinophils # (Manual) APTT POC ABG pH 7.528 H ABG pH POC ABG pCO2 POC ABG pO2 63 L ABG pO2 ABG HCO3 ABG Base Excess ABG Hemoglobin VBG pH Oxyhemoglobin Sodium Potassium Chloride Carbon Dioxide BUN Creatinine Glucose POC Glucose 126 H 117 H Lactic Acid Calcium Total Bilirubin AST ALT C-Reactive Protein Albumin Triglycerides Amylase Lipase Urine WBC (Auto) Vancomycin Trough 12/22/17 12/22/17 12/22/17 09:12 10:34 10:34 WBC 29.5 H RBC 3.44 L Hgb 11.2 L Hct 34.2 L MCV 99 H MCH 33 H MCHC RDW 13.1 L Plt Count 97 L Seg Neuts % (Manual) 88.0 H Lymphocytes % (Manual) 5.0 L Monocytes % (Manual) Nucleated RBC % Seg Neutrophils # Man 26.0 H Lymphocytes # (Manual) Monocytes # (Manual) Eosinophils # (Manual) APTT POC ABG pH ABG pH POC ABG pCO2 POC ABG pO2 ABG pO2 ABG HCO3 ABG Base Excess ABG Hemoglobin VBG pH Oxyhemoglobin Sodium 146 H Potassium 3.1 L Chloride Carbon Dioxide BUN 25 H Creatinine 0.7 L Glucose 146 H POC Glucose 168 H Lactic Acid Calcium 8.1 L Total Bilirubin AST ALT C-Reactive Protein Albumin Triglycerides Amylase Lipase Urine WBC (Auto) Vancomycin Trough 12/22/17 12/22/17 12/22/17 14:51 17:21 21:43 WBC RBC Hgb Hct MCV MCH MCHC RDW Plt Count Seg Neuts % (Manual) Lymphocytes % (Manual) Monocytes % (Manual) Nucleated RBC % Seg Neutrophils # Man Lymphocytes # (Manual) Monocytes # (Manual) Eosinophils # (Manual) APTT POC ABG pH ABG pH POC ABG pCO2 POC ABG pO2 ABG pO2 ABG HCO3 ABG Base Excess ABG Hemoglobin VBG pH Oxyhemoglobin Sodium Potassium Chloride Carbon Dioxide BUN Creatinine Glucose POC Glucose 125 H 110 H 153 H Lactic Acid Calcium Total Bilirubin AST ALT C-Reactive Protein Albumin Triglycerides Amylase Lipase Urine WBC (Auto) Vancomycin Trough 12/23/17 12/23/17 12/23/17 04:33 05:28 09:25 WBC 31.4 H RBC 3.05 L Hgb 9.8 L Hct 30.2 L MCV 99 H MCH MCHC RDW 12.9 L Plt Count 101 L Seg Neuts % (Manual) 97 H Lymphocytes % (Manual) 2 L Monocytes % (Manual) Nucleated RBC % Seg Neutrophils # Man 31.1 H Lymphocytes # (Manual) 0.5 L Monocytes # (Manual) Eosinophils # (Manual) APTT POC ABG pH 7.573 H ABG pH POC ABG pCO2 31.0 L POC ABG pO2 63 L ABG pO2 ABG HCO3 ABG Base Excess ABG Hemoglobin VBG pH Oxyhemoglobin Sodium Potassium Chloride Carbon Dioxide BUN Creatinine Glucose POC Glucose 124 H Lactic Acid Calcium Total Bilirubin AST ALT C-Reactive Protein Albumin Triglycerides Amylase Lipase Urine WBC (Auto) Vancomycin Trough 12/23/17 12/23/17 12/23/17 09:25 10:08 14:20 WBC RBC Hgb Hct MCV MCH MCHC RDW Plt Count Seg Neuts % (Manual) Lymphocytes % (Manual) Monocytes % (Manual) Nucleated RBC % Seg Neutrophils # Man Lymphocytes # (Manual) Monocytes # (Manual) Eosinophils # (Manual) APTT POC ABG pH ABG pH POC ABG pCO2 POC ABG pO2 ABG pO2 ABG HCO3 ABG Base Excess ABG Hemoglobin VBG pH Oxyhemoglobin Sodium Potassium 3.1 L Chloride Carbon Dioxide BUN Creatinine 0.6 L Glucose 169 H POC Glucose 171 H 211 H Lactic Acid Calcium 7.9 L Total Bilirubin AST ALT C-Reactive Protein Albumin Triglycerides Amylase Lipase Urine WBC (Auto) Vancomycin Trough 12/23/17 12/23/17 12/24/17 18:59 21:49 01:47 WBC RBC Hgb Hct MCV MCH MCHC RDW Plt Count Seg Neuts % (Manual) Lymphocytes % (Manual) Monocytes % (Manual) Nucleated RBC % Seg Neutrophils # Man Lymphocytes # (Manual) Monocytes # (Manual) Eosinophils # (Manual) APTT POC ABG pH ABG pH POC ABG pCO2 POC ABG pO2 ABG pO2 ABG HCO3 ABG Base Excess ABG Hemoglobin VBG pH Oxyhemoglobin Sodium Potassium Chloride Carbon Dioxide BUN Creatinine Glucose POC Glucose 175 H 146 H 143 H Lactic Acid Calcium Total Bilirubin AST ALT C-Reactive Protein Albumin Triglycerides Amylase Lipase Urine WBC (Auto) Vancomycin Trough 12/24/17 12/24/17 12/24/17 05:40 10:12 13:12 WBC RBC Hgb Hct MCV MCH MCHC RDW Plt Count Seg Neuts % (Manual) Lymphocytes % (Manual) Monocytes % (Manual) Nucleated RBC % Seg Neutrophils # Man Lymphocytes # (Manual) Monocytes # (Manual) Eosinophils # (Manual) APTT POC ABG pH 7.558 H ABG pH POC ABG pCO2 27.6 L POC ABG pO2 71 L ABG pO2 ABG HCO3 ABG Base Excess ABG Hemoglobin VBG pH Oxyhemoglobin Sodium Potassium Chloride Carbon Dioxide BUN Creatinine Glucose POC Glucose 118 H 111 H Lactic Acid Calcium Total Bilirubin AST ALT C-Reactive Protein Albumin Triglycerides Amylase Lipase Urine WBC (Auto) Vancomycin Trough 12/24/17 12/24/17 12/24/17 16:26 20:44 21:49 WBC RBC Hgb Hct MCV MCH MCHC RDW Plt Count Seg Neuts % (Manual) Lymphocytes % (Manual) Monocytes % (Manual) Nucleated RBC % Seg Neutrophils # Man Lymphocytes # (Manual) Monocytes # (Manual) Eosinophils # (Manual) APTT POC ABG pH ABG pH POC ABG pCO2 POC ABG pO2 ABG pO2 ABG HCO3 ABG Base Excess ABG Hemoglobin VBG pH Oxyhemoglobin Sodium Potassium Chloride Carbon Dioxide BUN Creatinine Glucose POC Glucose 113 H 124 H 115 H Lactic Acid Calcium Total Bilirubin AST ALT C-Reactive Protein Albumin Triglycerides Amylase Lipase Urine WBC (Auto) Vancomycin Trough 12/24/17 12/25/17 12/25/17 Unknown 02:26 03:38 WBC RBC Hgb Hct MCV MCH MCHC RDW Plt Count Seg Neuts % (Manual) Lymphocytes % (Manual) Monocytes % (Manual) Nucleated RBC % Seg Neutrophils # Man Lymphocytes # (Manual) Monocytes # (Manual) Eosinophils # (Manual) APTT POC ABG pH 7.503 H ABG pH POC ABG pCO2 POC ABG pO2 66 L ABG pO2 ABG HCO3 ABG Base Excess ABG Hemoglobin VBG pH Oxyhemoglobin Sodium Potassium 3.0 L Chloride Carbon Dioxide BUN Creatinine 0.5 L Glucose 166 H POC Glucose 106 H Lactic Acid Calcium 7.8 L Total Bilirubin AST ALT C-Reactive Protein Albumin Triglycerides Amylase Lipase Urine WBC (Auto) Vancomycin Trough 12/25/17 12/25/17 12/25/17 04:58 12:58 15:06 WBC RBC Hgb Hct MCV MCH MCHC RDW Plt Count Seg Neuts % (Manual) Lymphocytes % (Manual) Monocytes % (Manual) Nucleated RBC % Seg Neutrophils # Man Lymphocytes # (Manual) Monocytes # (Manual) Eosinophils # (Manual) APTT POC ABG pH ABG pH POC ABG pCO2 POC ABG pO2 ABG pO2 ABG HCO3 ABG Base Excess ABG Hemoglobin VBG pH Oxyhemoglobin Sodium Potassium Chloride Carbon Dioxide BUN Creatinine Glucose POC Glucose 113 H 118 H Lactic Acid Calcium Total Bilirubin AST ALT C-Reactive Protein Albumin Triglycerides Amylase Lipase Urine WBC (Auto) Vancomycin Trough 22.5 H 12/25/17 12/25/17 12/25/17 17:59 21:33 Unknown WBC 20.5 H RBC 2.75 L Hgb 9.1 L Hct 27.1 L MCV 99 H MCH 33 H MCHC RDW Plt Count 126 L Seg Neuts % (Manual) 89.0 H Lymphocytes % (Manual) 6.0 L Monocytes % (Manual) Nucleated RBC % Seg Neutrophils # Man 18.2 H Lymphocytes # (Manual) Monocytes # (Manual) Eosinophils # (Manual) APTT POC ABG pH ABG pH POC ABG pCO2 POC ABG pO2 ABG pO2 ABG HCO3 ABG Base Excess ABG Hemoglobin VBG pH Oxyhemoglobin Sodium Potassium Chloride Carbon Dioxide BUN Creatinine Glucose POC Glucose 145 H 167 H Lactic Acid Calcium Total Bilirubin AST ALT C-Reactive Protein Albumin Triglycerides Amylase Lipase Urine WBC (Auto) Vancomycin Trough 12/25/17 12/26/17 12/26/17 Unknown 02:26 05:29 WBC RBC Hgb Hct MCV MCH MCHC RDW Plt Count Seg Neuts % (Manual) Lymphocytes % (Manual) Monocytes % (Manual) Nucleated RBC % Seg Neutrophils # Man Lymphocytes # (Manual) Monocytes # (Manual) Eosinophils # (Manual) APTT POC ABG pH ABG pH POC ABG pCO2 POC ABG pO2 ABG pO2 ABG HCO3 ABG Base Excess ABG Hemoglobin VBG pH Oxyhemoglobin Sodium Potassium 2.8 L* Chloride Carbon Dioxide BUN Creatinine 0.6 L Glucose POC Glucose 167 H 216 H Lactic Acid Calcium 7.4 L Total Bilirubin AST ALT C-Reactive Protein Albumin Triglycerides Amylase Lipase Urine WBC (Auto) Vancomycin Trough 12/26/17 12/26/17 12/26/17 10:21 14:30 18:35 WBC RBC Hgb Hct MCV MCH MCHC RDW Plt Count Seg Neuts % (Manual) Lymphocytes % (Manual) Monocytes % (Manual) Nucleated RBC % Seg Neutrophils # Man Lymphocytes # (Manual) Monocytes # (Manual) Eosinophils # (Manual) APTT POC ABG pH ABG pH POC ABG pCO2 POC ABG pO2 ABG pO2 ABG HCO3 ABG Base Excess ABG Hemoglobin VBG pH Oxyhemoglobin Sodium Potassium Chloride Carbon Dioxide BUN Creatinine Glucose POC Glucose 164 H 157 H 146 H Lactic Acid Calcium Total Bilirubin AST ALT C-Reactive Protein Albumin Triglycerides Amylase Lipase Urine WBC (Auto) Vancomycin Trough 12/26/17 12/26/17 12/27/17 21:21 Unknown 01:54 WBC RBC Hgb Hct MCV MCH MCHC RDW Plt Count Seg Neuts % (Manual) Lymphocytes % (Manual) Monocytes % (Manual) Nucleated RBC % Seg Neutrophils # Man Lymphocytes # (Manual) Monocytes # (Manual) Eosinophils # (Manual) APTT POC ABG pH ABG pH POC ABG pCO2 POC ABG pO2 ABG pO2 ABG HCO3 ABG Base Excess ABG Hemoglobin VBG pH Oxyhemoglobin Sodium Potassium 3.0 L Chloride Carbon Dioxide BUN Creatinine 0.5 L Glucose 166 H POC Glucose 132 H 157 H Lactic Acid Calcium 7.8 L Total Bilirubin AST ALT C-Reactive Protein Albumin Triglycerides Amylase Lipase Urine WBC (Auto) Vancomycin Trough 12/27/17 12/27/17 12/27/17 05:20 05:20 05:44 WBC 26.4 H RBC 2.83 L Hgb 9.3 L Hct 27.6 L MCV 98 H MCH 33 H MCHC RDW Plt Count Seg Neuts % (Manual) 85.0 H Lymphocytes % (Manual) 5.0 L Monocytes % (Manual) Nucleated RBC % Seg Neutrophils # Man 22.4 H Lymphocytes # (Manual) Monocytes # (Manual) Eosinophils # (Manual) 0.5 H APTT POC ABG pH ABG pH POC ABG pCO2 POC ABG pO2 ABG pO2 ABG HCO3 ABG Base Excess ABG Hemoglobin VBG pH Oxyhemoglobin Sodium Potassium 2.3 L* D Chloride Carbon Dioxide BUN 7 L Creatinine 0.6 L Glucose 123 H POC Glucose 128 H Lactic Acid Calcium 8.1 L Total Bilirubin AST ALT C-Reactive Protein Albumin Triglycerides Amylase Lipase Urine WBC (Auto) Vancomycin Trough 12/27/17 12/27/17 12/27/17 10:04 14:44 15:30 WBC RBC Hgb Hct MCV MCH MCHC RDW Plt Count Seg Neuts % (Manual) Lymphocytes % (Manual) Monocytes % (Manual) Nucleated RBC % Seg Neutrophils # Man Lymphocytes # (Manual) Monocytes # (Manual) Eosinophils # (Manual) APTT POC ABG pH ABG pH POC ABG pCO2 POC ABG pO2 ABG pO2 ABG HCO3 ABG Base Excess ABG Hemoglobin VBG pH Oxyhemoglobin Sodium Potassium 3.1 L D Chloride Carbon Dioxide BUN Creatinine Glucose POC Glucose 115 H 128 H Lactic Acid Calcium Total Bilirubin AST ALT C-Reactive Protein Albumin Triglycerides Amylase Lipase Urine WBC (Auto) Vancomycin Trough 12/28/17 12/28/17 12/28/17 00:39 02:13 05:17 WBC RBC Hgb Hct MCV MCH MCHC RDW Plt Count Seg Neuts % (Manual) Lymphocytes % (Manual) Monocytes % (Manual) Nucleated RBC % Seg Neutrophils # Man Lymphocytes # (Manual) Monocytes # (Manual) Eosinophils # (Manual) APTT POC ABG pH ABG pH 7.497 H POC ABG pCO2 POC ABG pO2 ABG pO2 71.4 L ABG HCO3 29.9 H ABG Base Excess 6.2 H ABG Hemoglobin 7.9 L VBG pH Oxyhemoglobin 94.9 L Sodium Potassium Chloride Carbon Dioxide BUN Creatinine Glucose POC Glucose 112 H 108 H Lactic Acid Calcium Total Bilirubin AST ALT C-Reactive Protein Albumin Triglycerides Amylase Lipase Urine WBC (Auto) Vancomycin Trough 12/28/17 12/28/17 08:47 09:10 WBC 28.1 H RBC 2.76 L Hgb 9.1 L Hct 27.0 L MCV 98 H MCH 33 H MCHC RDW Plt Count Seg Neuts % (Manual) Lymphocytes % (Manual) Monocytes % (Manual) Nucleated RBC % Seg Neutrophils # Man Lymphocytes # (Manual) Monocytes # (Manual) Eosinophils # (Manual) APTT POC ABG pH ABG pH POC ABG pCO2 POC ABG pO2 ABG pO2 ABG HCO3 ABG Base Excess ABG Hemoglobin VBG pH Oxyhemoglobin Sodium Potassium 2.2 L* D Chloride Carbon Dioxide BUN 5 L Creatinine 0.5 L Glucose 106 H POC Glucose Lactic Acid Calcium 8.3 L Total Bilirubin AST ALT C-Reactive Protein Albumin Triglycerides Amylase Lipase Urine WBC (Auto) Vancomycin Trough
[2017-12-28] MEDS ORDERED: KCL 10MEQ/100ML 10 MEQ/100 ML BAG IV SCH (11:00)
[2017-12-28] MEDS ORDERED: K-DUR PO SCH (11:00)
[2017-12-28] MEDS: LOPRESSOR IV SCH ×2 (11:04→23:30)
[2017-12-28] MEDS: DEXMEDETOMIDINE 200 MCG in NACL 0.9% 48 ML IV SCH ×2 (11:05→18:40)
[2017-12-28] MEDS: KCL 20MEQ/100ML 20 MEQ/100 ML BAG IV SCH ×10 (11:59→21:33)
[2017-12-28] MEDS ORDERED: SUBLIMAZE ONE (12:09)
[2017-12-28] MEDS ORDERED: VERSED IV ONE (12:09)
[2017-12-28] MEDS ORDERED: SUBLIMAZE IV ONE (12:22)
[2017-12-28] MEDS ORDERED: VERSED IV PRN (12:35)
[2017-12-28] MEDS ORDERED: VERSED IV NR (13:00)
[2017-12-28 13:35] LABS: ABG Base Excess 6.7 mmol/L (-2.0-3.0); ABG HCO3 30.9 mmol/L (20.0-26.0); ABG Methemoglobin 0.5 % (0.0-1.5); ABG Oxygen Saturation 99.1 % (95.0-99.0); ABG PCO2 42.8 mm Hg; ABG PH 7.476 pH Units (7.350-7.450); ABG PO2 167.7 mm Hg (80.0-90.0)
--- NOTE | 2017-12-28 13:35 | XRay Report ---
AP ABDOMEN: HISTORY: Dobbhoff tube placement.. The Dobbhoff tube terminates just beyond the GE junction in the proximal stomach. Consider advancement. The abdominal gas pattern is unremarkable. No masses or organomegaly is identified and there is no gross evidence of free air or fluid. No significant soft tissue calcifications are noted. IMPRESSION: Unremarkable abdomen. Dobbhoff tube as described.
--- NOTE | 2017-12-28 13:35 | XRay Report ---
AP CHEST: HISTORY: Endotracheal tube placement An endotracheal tube has been inserted which terminates 3.3 cm superior to the valent[place]. The remainder of the examination is unchanged since earlier today at 0944 hours. IMPRESSION: Adequate placement of endotracheal tube.
[2017-12-28] MEDS: TYLENOL PO PRN (13:53)
[2017-12-28] MEDS ORDERED: SIMPLE SYRUP FEEDTUBE PRN ×2 (14:19)
[2017-12-28] MEDS ORDERED: SODIUM BICARBONATE FEEDTUBE PRN (14:19)
[2017-12-28] MEDS ORDERED: PANCREAZE DR 10,500 UNIT FEEDTUBE PRN (14:19)
[2017-12-28] MEDS ORDERED: NACL 0.9% 500 ML 500 ML IV ONE (14:24)
[2017-12-28] MEDS: LEVOPHED DRIP 4 MG/NS 250 ML 4 MG/250 ML BAG IV SCH (16:03)
[2017-12-29] MEDS: DUONEB *Not for PRN Use IH SCH ×4 (01:55→20:49)
[2017-12-29] MEDS: HumaLOG SUB-Q SCH ×6 (02:00→23:04)
[2017-12-29] MEDS: DEXMEDETOMIDINE 200 MCG in NACL 0.9% 48 ML IV SCH ×3 (04:57→18:24)
[2017-12-29] MEDS: LEVOPHED DRIP 4 MG/NS 250 ML 4 MG/250 ML BAG IV SCH (05:03)
[2017-12-29] MEDS: HALDOL IV SCH (05:08)
[2017-12-29] MEDS: FLAGYL 500 MG/100 ML 500 MG/100 ML BAG IV SCH ×3 (05:11→21:47)
[2017-12-29] MEDS: MAXIPIME 2 GM in NACL 0.9% 20 ML IV SCH ×3 (05:15→21:52)
[2017-12-29] MEDS: LOPRESSOR IV SCH ×5 (05:20→17:47)
[2017-12-29] MEDS: SODIUM CHLORIDE FLUSH SYRINGE 10 ML IV PRN ×3 (05:28→15:00)
[2017-12-29] MEDS: HEPARIN SUB-Q SCH ×3 (05:30→21:46)
[2017-12-29 06:13] LABS: ABG HCO3 28.2 mmol/L (20.0-26.0); ABG Methemoglobin 0.1 % (0.0-1.5); ABG Oxygen Saturation 97.2 % (95.0-99.0); ABG PCO2 39.9 mm Hg; ABG PH 7.467 pH Units (7.350-7.450); ABG PO2 85.3 mm Hg (80.0-90.0)
[2017-12-29] MEDS: TYLENOL PO PRN (08:37)
[2017-12-29 08:45] LABS: Hematocrit 22.7 % (35.5-45.6); Hemoglobin 7.5 gm/dl (11.8-15.2); Mean Corpuscular HGB Conc 33 % (32-34); Mean Corpuscular Hemoglobin 33 pg (28-32); Mean Corpuscular Volume 100 fl (84-94); Platelet Count 162 K/mm3 (140-440); Red Blood Count 2.26 M/mm3 (3.65-5.03); Red Cell Distribution Width 13.4 % (13.2-15.2)
[2017-12-29 09:01] LABS: Alanine Aminotransferase 29 units/L (7-56); Albumin 2.4 g/dL (3.9-5); BUN/Creatinine Ratio 18; Blood Urea Nitrogen 9 mg/dL (9-20); Calcium 7.8 mg/dL (8.4-10.2); Hemolysis Index 0
[2017-12-29] MEDS ORDERED: K-DUR PO ONE ×2 (09:09→11:00)
--- NOTE | 2017-12-29 09:32 | XRay Report ---
AP CHEST: HISTORY: Intubated, fever Lines and tubes are unchanged since yesterday's exam. The feeding tube appears to be coiled in the hypopharynx although the distal tip is followed to the stomach. Patchy infiltrate and atelectasis at the right lung base is stable. The left lung remains generally clear. Heart size is within normal limits. IMPRESSION: No change.
--- NOTE | 2017-12-29 09:50 | Progress Note ---
Assessment and Plan Assessment and plan: --Febrile illness/sepsis/aspiration pneumonia/ARDS Antipyretics, repeat blood cultures, chest x-ray, continue Zyvox cefepime and Flagyl ID following, follow cultures --Acute hypoxic respiratory failure : self extubated Went into acute respiratory failure, intubated yesterday Continue ventilatory support, wean as tolerated and extubated Continue nebulizers, IV steroids, IV antibiotics , pulmonary following --Severe Hypokalemia; replenished per protocol with IV and oral potassium chloride Check magnesium, closely monitor electrolytes --Persistent fevers; secondary to sepsis Continue IV antibiotics, antipyretics, follow cultures ID following --Alcohol abuse: sedated, cont iv thiamine --Hypotension on Levophed, titrate systolic blood pressure to more than 100 --Thrombocytopenia, improving closely monitor, no evidence of bleeding --Hypernatremia -corrected --Severe protein calorie malnutrition; nutrition supplements, tube feeding and supportive care --DM type 2-continue Accu-Chek sliding scale coverage long-acting insulin, chilled feeding --DVT prophylaxis: Continue heparin and SCDs Plan of care is reviewed with the patient's and his nurse Consults and recommendations noted and appreciated Critical care time 32 minutes The high probability of a clinically significant sudden or life-threatening deterioration of the [infectious, respiratory, hematologic] system(s) required my full and direct attention, intervention and personal management. The aggregate critical care time was [32 ] minutes. This time is in addition to the time spent performing reported procedures but including [ X] Data review and interpretation [ X] Patient assessment and monitoring of vital signs [ X ] Documentation [X] Medication orders and management History Interval history: Patient seen and examined medical records reviewed Patient was intubated yesterday on ventilatory support and sedated No new events reported by the nursing Mild drop in H&H, no external evidence of bleeding Patient is comfortable, febrile, MAXIMUM TEMPERATURE has been 1.4 Vital signs reviewed Hospitalist Physical - Constitutional Vitals: Temp Pulse Resp BP Pulse Ox 101.4 F H 105 H 26 H 114/65 96 12/29/17 08:00 12/29/17 09:00 12/29/17 09:00 12/29/17 09:00 12/29/17 09:00 General appearance: Present: no acute distress, well-nourished, other ( intubated on vent) - EENT Eyes: Present: PERRL, EOM intact ENT: other (ET tube and Dobbhoff in place) - Neck Neck: Present: supple - Respiratory Respiratory effort: normal Respiratory: bilateral: diminished, rhonchi, negative: rales, wheezing - Cardiovascular Rhythm: regular (tachycardia) Heart Sounds: Present: S1 & S2 - Extremities Extremities: no ischemia, No edema - Abdominal General gastrointestinal: soft, non-tender, non-distended, normal bowel sounds - Integumentary Integumentary: Present: clear, warm - Psychiatric Psychiatric: other (intubated and sedated) - Neurologic Neurologic: other (intubated and noncommunicative) Results - Labs CBC & Chem 7: 12/29/17 08:04 12/29/17 08:04 Labs: Laboratory Last Values WBC 20.8 K/mm3 (4.5-11.0) H 12/29/17 08:04 RBC 2.26 M/mm3 (3.65-5.03) L 12/29/17 08:04 Hgb 7.5 gm/dl (11.8-15.2) L 12/29/17 08:04 Hct 22.7 % (35.5-45.6) L 12/29/17 08:04 MCV 100 fl (84-94) H 12/29/17 08:04 MCH 33 pg (28-32) H 12/29/17 08:04 MCHC 33 % (32-34) 12/29/17 08:04 RDW 13.4 % (13.2-15.2) 12/29/17 08:04 Plt Count 162 K/mm3 (140-440) 12/29/17 08:04 Mcdowell % (Auto) Outside Production Inspector 12/12/17 19:02 Add Manual Diff Complete 12/27/17 05:20 Total Counted 100 12/27/17 05:20 Seg Neutrophils % Outside Production Inspector 12/23/17 09:25 Seg Neuts % (Manual) 85.0 % (40.0-70.0) H 12/27/17 05:20 Band Neutrophils % 6.0 % 12/27/17 05:20 Lymphocytes % (Manual) 5.0 % (13.4-35.0) L 12/27/17 05:20 Reactive Lymphs % (Man) 0 % 12/27/17 05:20 Monocytes % (Manual) 2.0 % (0.0-7.3) 12/27/17 05:20 Eosinophils % (Manual) 2.0 % (0.0-4.3) 12/27/17 05:20 Basophils % (Manual) 0 % (0.0-1.8) 12/27/17 05:20 Metamyelocytes % 0 % 12/27/17 05:20 Myelocytes % 0 % 12/27/17 05:20 Promyelocytes % 0 % 12/27/17 05:20 Blast Cells % 0 % 12/27/17 05:20 Nucleated RBC % Not Reportable 12/27/17 05:20 Seg Neutrophils # Man 22.4 K/mm3 (1.8-7.7) H 12/27/17 05:20 Band Neutrophils # 1.6 K/mm3 12/27/17 05:20 Lymphocytes # (Manual) 1.3 K/mm3 (1.2-5.4) 12/27/17 05:20 Abs React Lymphs (Man) 0.0 K/mm3 12/27/17 05:20 Monocytes # (Manual) 0.5 K/mm3 (0.0-0.8) 12/27/17 05:20 Eosinophils # (Manual) 0.5 K/mm3 (0.0-0.4) H 12/27/17 05:20 Basophils # (Manual) 0.0 K/mm3 (0.0-0.1) 12/27/17 05:20 Metamyelocytes # 0.0 K/mm3 12/27/17 05:20 Myelocytes # 0.0 K/mm3 12/27/17 05:20 Promyelocytes # 0.0 K/mm3 12/27/17 05:20 Blast Cells # 0.0 K/mm3 12/27/17 05:20 Pathologist Review 12/23/17 09:25 WBC Morphology Not Reportable 12/27/17 05:20 Hypersegmented Neuts Not Reportable 12/27/17 05:20 Hyposegmented Neuts Not Reportable 12/27/17 05:20 Hypogranular Neuts Not Reportable 12/27/17 05:20 Smudge Cells Not Reportable 12/27/17 05:20 Toxic Granulation Not Reportable 12/27/17 05:20 Toxic Vacuolation Not Reportable 12/27/17 05:20 Dohle Bodies Not Reportable 12/27/17 05:20 Pelger-Huet Anomaly Not Reportable 12/27/17 05:20 Mary Rods Not Reportable 12/27/17 05:20 Platelet Estimate Appears normal 12/27/17 05:20 Clumped Platelets Not Reportable 12/27/17 05:20 Plt Clumps, EDTA Not Reportable 12/27/17 05:20 Large Platelets Not Reportable 12/27/17 05:20 Giant Platelets Not Reportable 12/27/17 05:20 Platelet Satelliting Not Reportable 12/27/17 05:20 Plt Morphology Comment Not Reportable 12/27/17 05:20 RBC Morphology Not Reportable 12/27/17 05:20 Dimorphic RBCs Not Reportable 12/27/17 05:20 Polychromasia Not Reportable 12/27/17 05:20 Hypochromasia Not Reportable 12/27/17 05:20 Poikilocytosis Not Reportable 12/27/17 05:20 Anisocytosis 1+ 12/27/17 05:20 Microcytosis Not Reportable 12/27/17 05:20 Macrocytosis Not Reportable 12/27/17 05:20 Spherocytes Not Reportable 12/27/17 05:20 Pappenheimer Bodies Not Reportable 12/27/17 05:20 Sickle Cells Not Reportable 12/27/17 05:20 Target Cells Not Reportable 12/27/17 05:20 Tear Drop Cells Not Reportable 12/27/17 05:20 Ovalocytes Not Reportable 12/27/17 05:20 Stomatocytes 1+ 12/27/17 05:20 Helmet Cells Not Reportable 12/27/17 05:20 Arceo-Eleele Bodies Not Reportable 12/27/17 05:20 Sl[place]den Rings Not Reportable 12/27/17 05:20 [place] Cells Not Reportable 12/27/17 05:20 Bite Cells Not Reportable 12/27/17 05:20 Crenated Cell Not Reportable 12/27/17 05:20 Elliptocytes Not Reportable 12/27/17 05:20 Acanthocytes (Spur) Not Reportable 12/27/17 05:20 Rouleaux Not Reportable 12/27/17 05:20 Hemoglobin C Crystals Not Reportable 12/27/17 05:20 Schistocytes Not Reportable 12/27/17 05:20 Malaria parasites Not Reportable 12/27/17 05:20 Vipul Bodies Not Reportable 12/27/17 05:20 Hem Pathologist Commnt No 12/27/17 05:20 PT 14.9 Sec. (12.2-14.9) 12/15/17 04:05 INR 1.11 (0.87-1.13) 12/15/17 04:05 APTT 20.9 Sec. (24.2-36.6) L 12/15/17 04:05 POC ABG pH 7.503 (7.35-7.45) H 12/25/17 03:38 ABG pH 7.467 pH Units (7.350-7.450) H 12/29/17 05:50 POC ABG pCO2 35.8 (35-45) 12/25/17 03:38 ABG pCO2 39.9 mm Hg 12/29/17 05:50 POC ABG pO2 66 (80-105) L 12/25/17 03:38 ABG pO2 85.3 mm Hg (80.0-90.0) 12/29/17 05:50 POC ABG HCO3 28.1 12/25/17 03:38 ABG HCO3 28.2 mmol/L (20.0-26.0) H 12/29/17 05:50 POC ABG Total CO2 29 12/25/17 03:38 POC ABG O2 Sat 95 12/25/17 03:38 ABG O2 Saturation 97.2 % (95.0-99.0) 12/29/17 05:50 ABG O2 Content 5.1 (0.0-44) 12/29/17 05:50 POC ABG Base Excess 5 12/25/17 03:38 ABG Base Excess 4.0 mmol/L (-2.0-3.0) H 12/29/17 05:50 ABG Hemoglobin < 5.1 gm/dl (14.0-18.0) L 12/29/17 05:50 ABG Carboxyhemoglobin 1.8 % (0.0-5.0) 12/29/17 05:50 ABG Methemoglobin 0.1 % (0.0-1.5) 12/29/17 05:50 VBG pH 7.472 (7.320-7.420) H 12/12/17 19:18 Oxyhemoglobin 95.4 % (95.0-99.0) 12/29/17 05:50 FiO2 50 % 12/29/17 05:50 Sodium 144 mmol/L (137-145) 12/29/17 08:04 Potassium 3.0 mmol/L (3.6-5.0) L D 12/29/17 08:04 Chloride 104.2 mmol/L (98-107) 12/29/17 08:04 Carbon Dioxide 28 mmol/L (22-30) 12/29/17 08:04 Anion Gap 15 mmol/L 12/29/17 08:04 BUN 9 mg/dL (9-20) 12/29/17 08:04 Creatinine 0.5 mg/dL (0.8-1.5) L 12/29/17 08:04 Estimated GFR > 60 ml/min 12/29/17 08:04 BUN/Creatinine Ratio 18 % 12/29/17 08:04 Glucose 147 mg/dL (75-100) H 12/29/17 08:04 POC Glucose 153 (70-105) H 12/29/17 08:20 Lactic Acid 2.00 mmol/L (0.7-2.0) 12/13/17 19:38 Calcium 7.8 mg/dL (8.4-10.2) L 12/29/17 08:04 Phosphorus 2.20 mg/dL (2.5-4.5) L 12/28/17 08:47 Magnesium 2.10 mg/dL (1.7-2.3) 12/28/17 08:47 Total Bilirubin 0.60 mg/dL (0.1-1.2) 12/29/17 08:04 AST 36 units/L (5-40) 12/29/17 08:04 ALT 29 units/L (7-56) 12/29/17 08:04 Alkaline Phosphatase 68 units/L (35-129) 12/29/17 08:04 C-Reactive Protein 7.10 mg/dL (0.00-1.30) H 12/20/17 13:40 NT-Pro-B Natriuret Pep 409.9 pg/mL (0-450) 12/12/17 19:02 Total Protein 5.6 g/dL (6.3-8.2) L 12/29/17 08:04 Albumin 2.4 g/dL (3.9-5) L 12/29/17 08:04 Albumin/Globulin Ratio 0.8 % 12/29/17 08:04 Triglycerides 1042 mg/dL (2-149) H 12/20/17 13:40 Amylase 20 units/L (27-131) L 12/13/17 13:47 Lipase 9 units/L (13-60) L 12/13/17 13:47 Urine Color Ne[place] (Yellow) 12/15/17 17:00 Urine Turbidity Hazy (Clear) 12/15/17 17:00 Urine pH 6.0 (5.0-7.0) 12/15/17 17:00 Ur Specific [place] 1.027 (1.003-1.030) 12/15/17 17:00 Urine Protein 30 mg/dl mg/dL (Negative) 12/15/17 17:00 Urine Glucose (UA) Neg mg/dL (Negative) 12/15/17 17:00 Urine Ketones Tr mg/dL (Negative) 12/15/17 17:00 Urine Blood Lg (Negative) 12/15/17 17:00 Urine Nitrite Neg (Negative) 12/15/17 17:00 Urine Bilirubin Neg (Negative) 12/15/17 17:00 Urine Ictotest Positive (Negative) 12/12/17 20:42 Urine Urobilinogen < 2.0 mg/dL (<2.0) 12/15/17 17:00 Ur Leukocyte Esterase Tr (Negative) 12/15/17 17:00 Urine WBC (Auto) 38.0 /HPF (0.0-6.0) H 12/15/17 17:00 Urine RBC (Auto) 65.0 /HPF (0.0-6.0) 12/15/17 17:00 U Epithel Cells (Auto) < 1.0 /HPF (0-13.0) 12/12/17 20:42 Urine Bacteria (Auto) 1+ /HPF (Negative) 12/15/17 17:00 Urine Mucus 1+ /HPF 12/12/17 20:42 Vancomycin Trough 22.5 ug/mL (5.0-20.0) H 12/25/17 12:58 JERMAIN Screen Negative (Negative) 12/18/17 16:44 Proteinase 3 (PR3) Ab <1.0 AI (<1.0) 12/18/17 16:33 Myeloperoxidase Ab <1.0 AI (<1.0) 12/18/17 16:33 Complement C3 113 mg/dL (82-185) 12/18/17 16:33 Complement C4 15 mg/dL (15-53) 12/18/17 16:33 Hepatitis A IgM Ab Non-reactive (NonReactive) 12/20/17 13:40 Hep Bs Antigen Non-reactive (Negative) 12/20/17 13:40 Hep B Core IgM Ab Non-reactive (NonReactive) 12/20/17 13:40 Hepatitis C Antibody Non-reactive (NonReactive) 12/20/17 13:40 HIV 1&2 Antibody Rapid Non react (Non React) 12/20/17 13:40 HIV P24 Antigen Non react (Non React) 12/20/17 13:40 Influenza A (Rapid) Negative (Negative) 12/12/17 22:00 Influenza B (Rapid) Negative (Negative) 12/12/17 22:00 Urine Legionella Ag Not detected (Not Detected) 12/14/17 16:15 Miscellaneous Test Flexitest 1 12/14/17 16:15
[2017-12-29] MEDS ORDERED: KCL 10MEQ/100ML 10 MEQ/100 ML BAG IV SCH (10:00)
[2017-12-29] MEDS ORDERED: KPHOS 20 MMOL in NACL 0.9% 250ML 250 ML IV ONE (10:00)
--- NOTE | 2017-12-29 10:32 | Progress Note ---
Assessment and Plan 47 y/o male with acute respiratory failure thought secondary to H. Flu now with H. Flu bacteremia, sepsis and persistent fevers. 1. Acute respiratory failure. Patient re-intubated 12/28. Started with higher peeps as I feel some of the haze on his CXR is volume. Wean FiO2 first and then start weaning PEEP. Discussed the possibility of trach with . Given the patient's obesity, anxiety and possible underlying psych issues, may need a trach for safety. Continue to wean and attempt PSV trials when ready. If fails , trach would be the next option. 2. Abx therapy per ID, infiltrate has improved. 3. Aggressive replacement of K. Will repeat later tonight and give more this evening. 4. May need more lasix therapy, but will wait on Repeat K levels. CCT 31 minutes. Subjective Date of service: 12/29/17 Principal diagnosis: ARDS Interval history: Unfortunately, Mr. Chiu had to be re-intubated on yesterday morning. This am sedated, at bedside. Currently on FiO2 of 50% and 10 of PEEP. CXR is stable. BP better. K still low. Objective Vital Signs - 12hr 12/28/17 12/28/17 12/28/17 23:00 23:32 23:39 Temperature 99.6 F Pulse Rate 89 87 Pulse Rate [ Anterior Bilateral Throughout] Pulse Rate [ From Monitor] Pulse Rate [ Left Dorsalis Pedis] Pulse Rate [ Left Radial] Pulse Rate [ Right Dorsalis Pedis] Pulse Rate [ Right Radial] Respiratory 37 H 36 H Rate Respiratory Rate [Anterior Bilateral Throughout] Blood Pressure 131/79 124/75 O2 Sat by Pulse 99 97 Oximetry 12/29/17 12/29/17 12/29/17 00:00 01:00 01:58 Temperature Pulse Rate 86 82 Pulse Rate [ 89 Anterior Bilateral Throughout] Pulse Rate [ 86 From Monitor] Pulse Rate [ 86 Left Dorsalis Pedis] Pulse Rate [ 86 Left Radial] Pulse Rate [ 86 Right Dorsalis Pedis] Pulse Rate [ 86 Right Radial] Respiratory 35 H 35 H Rate Respiratory 31 H Rate [Anterior Bilateral Throughout] Blood Pressure 116/65 126/79 O2 Sat by Pulse 97 99 Oximetry 12/29/17 12/29/17 12/29/17 02:00 02:10 03:00 Temperature Pulse Rate 90 89 Pulse Rate [ 90 Anterior Bilateral Throughout] Pulse Rate [ 85 From Monitor] Pulse Rate [ 85 Left Dorsalis Pedis] Pulse Rate [ 85 Left Radial] Pulse Rate [ 85 Right Dorsalis Pedis] Pulse Rate [ 85 Right Radial] Respiratory 31 H 37 H Rate Respiratory 30 H Rate [Anterior Bilateral Throughout] Blood Pressure 133/78 126/72 O2 Sat by Pulse 96 98 Oximetry 12/29/17 12/29/17 12/29/17 03:50 04:00 05:00 Temperature 98.1 F Pulse Rate 90 116 H Pulse Rate [ Anterior Bilateral Throughout] Pulse Rate [ 85 From Monitor] Pulse Rate [ 85 Left Dorsalis Pedis] Pulse Rate [ 85 Left Radial] Pulse Rate [ 85 Right Dorsalis Pedis] Pulse Rate [ 85 Right Radial] Respiratory 24 44 H Rate Respiratory Rate [Anterior Bilateral Throughout] Blood Pressure 125/73 143/78 O2 Sat by Pulse 97 100 Oximetry 12/29/17 12/29/17 12/29/17 06:00 07:00 07:35 Temperature Pulse Rate 104 H 100 H 107 H Pulse Rate [ Anterior Bilateral Throughout] Pulse Rate [ From Monitor] Pulse Rate [ Left Dorsalis Pedis] Pulse Rate [ Left Radial] Pulse Rate [ Right Dorsalis Pedis] Pulse Rate [ Right Radial] Respiratory 39 H 38 H Rate Respiratory Rate [Anterior Bilateral Throughout] Blood Pressure 135/75 129/70 133/77 O2 Sat by Pulse 95 96 96 Oximetry 12/29/17 12/29/17 12/29/17 07:39 07:45 07:52 Temperature Pulse Rate Pulse Rate [ 105 H 105 H Anterior Bilateral Throughout] Pulse Rate [ 106 H From Monitor] Pulse Rate [ Left Dorsalis Pedis] Pulse Rate [ Left Radial] Pulse Rate [ Right Dorsalis Pedis] Pulse Rate [ Right Radial] Respiratory 35 H Rate Respiratory 35 H 28 H Rate [Anterior Bilateral Throughout] Blood Pressure O2 Sat by Pulse 96 Oximetry 12/29/17 12/29/17 12/29/17 08:00 09:00 10:13 Temperature 101.4 F H Pulse Rate 111 H 105 H 101 H Pulse Rate [ Anterior Bilateral Throughout] Pulse Rate [ From Monitor] Pulse Rate [ Left Dorsalis Pedis] Pulse Rate [ Left Radial] Pulse Rate [ Right Dorsalis Pedis] Pulse Rate [ Right Radial] Respiratory 31 H 26 H Rate Respiratory Rate [Anterior Bilateral Throughout] Blood Pressure 123/63 114/65 117/62 O2 Sat by Pulse 97 96 98 Oximetry Constitutional: other (intubated, sedated) Eyes: non-icteric ENT: oropharynx moist Neck: supple Effort: normal Ascultation: Right: rales, Bilateral: diminished breath sounds Percussion: Bilateral: not dull Tactile fremitus: Bilateral: normal Cardiovascular: regular rate and rhythm, other (tachycardic) Gastrointestinal: normoactive bowel sounds, soft, non-tender, non-distended, other (obese) Integumentary: normal Extremities: no cyanosis, no edema, pink and warm Neurologic: normal mental status (at this time of examination) Psychiatric: other (not able to assess) CBC and BMP: 12/29/17 08:04 12/29/17 08:04 ABG, PT/INR, D-dimer: ABG POC ABG pH 7.503 (7.35-7.45) H 12/25/17 03:38 ABG pH 7.467 pH Units (7.350-7.450) H 12/29/17 05:50 POC ABG pCO2 35.8 (35-45) 12/25/17 03:38 ABG pCO2 39.9 mm Hg 12/29/17 05:50 POC ABG pO2 66 (80-105) L 12/25/17 03:38 ABG pO2 85.3 mm Hg (80.0-90.0) 12/29/17 05:50 POC ABG HCO3 28.1 12/25/17 03:38 POC ABG Total CO2 29 12/25/17 03:38 POC ABG O2 Sat 95 12/25/17 03:38 ABG O2 Saturation 97.2 % (95.0-99.0) 12/29/17 05:50 PT/INR, D-dimer PT 14.9 Sec. (12.2-14.9) 12/15/17 04:05 INR 1.11 (0.87-1.13) 12/15/17 04:05 Abnormal lab findings: Abnormal Labs 12/12/17 12/12/17 12/12/17 18:57 19:02 19:02 WBC RBC Hgb Hct MCV 96 H MCH 34 H MCHC 35 H RDW Plt Count 46 L Seg Neuts % (Manual) 77.0 H Lymphocytes % (Manual) 13.0 L Monocytes % (Manual) Nucleated RBC % Seg Neutrophils # Man Lymphocytes # (Manual) 0.9 L Monocytes # (Manual) Eosinophils # (Manual) APTT POC ABG pH ABG pH POC ABG pCO2 POC ABG pO2 ABG pO2 ABG HCO3 ABG O2 Saturation ABG Base Excess ABG Hemoglobin VBG pH Oxyhemoglobin Sodium Potassium Chloride Carbon Dioxide BUN Creatinine Glucose POC Glucose 321 H Lactic Acid 4.00 H* Calcium Phosphorus Total Bilirubin AST ALT C-Reactive Protein Total Protein Albumin Triglycerides Amylase Lipase Urine WBC (Auto) Vancomycin Trough 12/12/17 12/12/17 12/12/17 19:02 19:18 20:55 WBC RBC Hgb Hct MCV MCH MCHC RDW Plt Count Seg Neuts % (Manual) Lymphocytes % (Manual) Monocytes % (Manual) Nucleated RBC % Seg Neutrophils # Man Lymphocytes # (Manual) Monocytes # (Manual) Eosinophils # (Manual) APTT POC ABG pH ABG pH POC ABG pCO2 POC ABG pO2 ABG pO2 ABG HCO3 ABG O2 Saturation ABG Base Excess ABG Hemoglobin VBG pH 7.472 H Oxyhemoglobin Sodium 124 L Potassium Chloride 80.0 L Carbon Dioxide 20 L BUN Creatinine Glucose 382 H POC Glucose 283 H Lactic Acid Calcium 8.1 L Phosphorus Total Bilirubin 4.60 H AST 93 H ALT 112 H C-Reactive Protein Total Protein Albumin 2.5 L Triglycerides Amylase Lipase Urine WBC (Auto) Vancomycin Trough 12/12/17 12/13/17 12/13/17 21:41 00:45 01:29 WBC RBC Hgb Hct MCV MCH MCHC RDW Plt Count Seg Neuts % (Manual) Lymphocytes % (Manual) Monocytes % (Manual) Nucleated RBC % Seg Neutrophils # Man Lymphocytes # (Manual) Monocytes # (Manual) Eosinophils # (Manual) APTT POC ABG pH ABG pH POC ABG pCO2 POC ABG pO2 ABG pO2 ABG HCO3 ABG O2 Saturation ABG Base Excess ABG Hemoglobin VBG pH Oxyhemoglobin Sodium Potassium Chloride Carbon Dioxide BUN Creatinine Glucose POC Glucose Lactic Acid 4.20 H* 2.70 H* 3.30 H* Calcium Phosphorus Total Bilirubin AST ALT C-Reactive Protein Total Protein Albumin Triglycerides Amylase Lipase Urine WBC (Auto) Vancomycin Trough 12/13/17 12/13/17 12/13/17 02:19 03:44 05:58 WBC RBC Hgb Hct MCV 97 H MCH 34 H MCHC 35 H RDW Plt Count 41 L Seg Neuts % (Manual) Lymphocytes % (Manual) 8.0 L Monocytes % (Manual) 8.0 H Nucleated RBC % Seg Neutrophils # Man Lymphocytes # (Manual) 0.6 L Monocytes # (Manual) Eosinophils # (Manual) APTT POC ABG pH 7.334 L ABG pH POC ABG pCO2 POC ABG pO2 43 L ABG pO2 ABG HCO3 ABG O2 Saturation ABG Base Excess ABG Hemoglobin VBG pH Oxyhemoglobin Sodium Potassium Chloride Carbon Dioxide BUN Creatinine Glucose POC Glucose Lactic Acid 2.60 H* Calcium Phosphorus Total Bilirubin AST ALT C-Reactive Protein Total Protein Albumin Triglycerides Amylase Lipase Urine WBC (Auto) Vancomycin Trough 12/13/17 12/13/17 12/13/17 05:58 05:58 05:58 WBC RBC Hgb Hct MCV MCH MCHC RDW Plt Count Seg Neuts % (Manual) Lymphocytes % (Manual) Monocytes % (Manual) Nucleated RBC % Seg Neutrophils # Man Lymphocytes # (Manual) Monocytes # (Manual) Eosinophils # (Manual) APTT POC ABG pH ABG pH POC ABG pCO2 POC ABG pO2 ABG pO2 ABG HCO3 ABG O2 Saturation ABG Base Excess ABG Hemoglobin VBG pH Oxyhemoglobin Sodium 132 L D Potassium Chloride 90.0 L Carbon Dioxide 20 L BUN Creatinine Glucose 346 H POC Glucose 298 H Lactic Acid 4.50 H* Calcium 8.2 L Phosphorus Total Bilirubin AST ALT C-Reactive Protein Total Protein Albumin Triglycerides Amylase Lipase Urine WBC (Auto) Vancomycin Trough 12/13/17 12/13/17 12/13/17 06:27 09:42 11:47 WBC RBC Hgb Hct MCV MCH MCHC RDW Plt Count Seg Neuts % (Manual) Lymphocytes % (Manual) Monocytes % (Manual) Nucleated RBC % Seg Neutrophils # Man Lymphocytes # (Manual) Monocytes # (Manual) Eosinophils # (Manual) APTT POC ABG pH 7.267 L 7.298 L ABG pH POC ABG pCO2 50.4 H 51.3 H POC ABG pO2 47 L 43 L ABG pO2 ABG HCO3 ABG O2 Saturation ABG Base Excess ABG Hemoglobin VBG pH Oxyhemoglobin Sodium Potassium Chloride Carbon Dioxide BUN Creatinine Glucose POC Glucose 376 H Lactic Acid Calcium Phosphorus Total Bilirubin AST ALT C-Reactive Protein Total Protein Albumin Triglycerides Amylase Lipase Urine WBC (Auto) Vancomycin Trough 12/13/17 12/13/17 12/13/17 12:03 13:47 13:47 WBC RBC Hgb Hct MCV MCH MCHC RDW Plt Count Seg Neuts % (Manual) Lymphocytes % (Manual) Monocytes % (Manual) Nucleated RBC % Seg Neutrophils # Man Lymphocytes # (Manual) Monocytes # (Manual) Eosinophils # (Manual) APTT POC ABG pH 7.264 L ABG pH POC ABG pCO2 54.9 H POC ABG pO2 55 L ABG pO2 ABG HCO3 ABG O2 Saturation ABG Base Excess ABG Hemoglobin VBG pH Oxyhemoglobin Sodium Potassium Chloride Carbon Dioxide BUN Creatinine Glucose POC Glucose Lactic Acid 2.80 H* Calcium Phosphorus Total Bilirubin AST ALT C-Reactive Protein Total Protein Albumin Triglycerides Amylase 20 L Lipase 9 L Urine WBC (Auto) Vancomycin Trough 12/13/17 12/13/17 12/13/17 15:36 17:39 21:47 WBC RBC Hgb Hct MCV MCH MCHC RDW Plt Count Seg Neuts % (Manual) Lymphocytes % (Manual) Monocytes % (Manual) Nucleated RBC % Seg Neutrophils # Man Lymphocytes # (Manual) Monocytes # (Manual) Eosinophils # (Manual) APTT POC ABG pH 7.229 L 7.225 L ABG pH POC ABG pCO2 60.9 H 66.3 H POC ABG pO2 42 L 41 L ABG pO2 ABG HCO3 ABG O2 Saturation ABG Base Excess ABG Hemoglobin VBG pH Oxyhemoglobin Sodium Potassium Chloride Carbon Dioxide BUN Creatinine Glucose POC Glucose 289 H Lactic Acid Calcium Phosphorus Total Bilirubin AST ALT C-Reactive Protein Total Protein Albumin Triglycerides Amylase Lipase Urine WBC (Auto) Vancomycin Trough 12/13/17 12/14/17 12/14/17 22:19 02:03 05:16 WBC RBC Hgb Hct MCV MCH MCHC RDW Plt Count Seg Neuts % (Manual) Lymphocytes % (Manual) Monocytes % (Manual) Nucleated RBC % Seg Neutrophils # Man Lymphocytes # (Manual) Monocytes # (Manual) Eosinophils # (Manual) APTT POC ABG pH 7.247 L ABG pH POC ABG pCO2 61.2 H POC ABG pO2 53 L ABG pO2 ABG HCO3 ABG O2 Saturation ABG Base Excess ABG Hemoglobin VBG pH Oxyhemoglobin Sodium Potassium Chloride Carbon Dioxide BUN Creatinine Glucose POC Glucose 274 H 295 H Lactic Acid Calcium Phosphorus Total Bilirubin AST ALT C-Reactive Protein Total Protein Albumin Triglycerides Amylase Lipase Urine WBC (Auto) Vancomycin Trough 0312/14/17 12/14/17 05:32 12:04 16:22 WBC RBC Hgb Hct MCV MCH MCHC RDW Plt Count Seg Neuts % (Manual) Lymphocytes % (Manual) Monocytes % (Manual) Nucleated RBC % Seg Neutrophils # Man Lymphocytes # (Manual) Monocytes # (Manual) Eosinophils # (Manual) APTT POC ABG pH ABG pH POC ABG pCO2 POC ABG pO2 ABG pO2 ABG HCO3 ABG O2 Saturation ABG Base Excess ABG Hemoglobin VBG pH Oxyhemoglobin Sodium Potassium Chloride Carbon Dioxide BUN Creatinine Glucose POC Glucose 230 H 241 H 231 H Lactic Acid Calcium Phosphorus Total Bilirubin AST ALT C-Reactive Protein Total Protein Albumin Triglycerides Amylase Lipase Urine WBC (Auto) Vancomycin Trough 12/14/17 12/15/17 12/15/17 21:29 02:29 03:25 WBC RBC Hgb Hct MCV MCH MCHC RDW Plt Count Seg Neuts % (Manual) Lymphocytes % (Manual) Monocytes % (Manual) Nucleated RBC % Seg Neutrophils # Man Lymphocytes # (Manual) Monocytes # (Manual) Eosinophils # (Manual) APTT POC ABG pH 7.330 L ABG pH POC ABG pCO2 55.3 H POC ABG pO2 59 L ABG pO2 ABG HCO3 ABG O2 Saturation ABG Base Excess ABG Hemoglobin VBG pH Oxyhemoglobin Sodium Potassium Chloride Carbon Dioxide BUN Creatinine Glucose POC Glucose 258 H 246 H Lactic Acid Calcium Phosphorus Total Bilirubin AST ALT C-Reactive Protein Total Protein Albumin Triglycerides Amylase Lipase Urine WBC (Auto) Vancomycin Trough 12/15/17 12/15/17 12/15/17 04:05 04:05 04:05 WBC 15.0 H RBC 3.40 L Hgb 11.3 L D Hct 33.8 L D MCV 100 H MCH 33 H MCHC RDW Plt Count 48 L Seg Neuts % (Manual) Lymphocytes % (Manual) 3.0 L Monocytes % (Manual) Nucleated RBC % 2.0 H Seg Neutrophils # Man Lymphocytes # (Manual) 0.5 L Monocytes # (Manual) 0.9 H Eosinophils # (Manual) APTT 20.9 L POC ABG pH ABG pH POC ABG pCO2 POC ABG pO2 ABG pO2 ABG HCO3 ABG O2 Saturation ABG Base Excess ABG Hemoglobin VBG pH Oxyhemoglobin Sodium Potassium Chloride Carbon Dioxide BUN 27 H Creatinine Glucose 258 H POC Glucose Lactic Acid Calcium 8.1 L Phosphorus Total Bilirubin AST ALT C-Reactive Protein Total Protein Albumin Triglycerides Amylase Lipase Urine WBC (Auto) Vancomycin Trough 12/15/17 12/15/17 12/15/17 05:32 11:17 14:59 WBC RBC Hgb Hct MCV MCH MCHC RDW Plt Count Seg Neuts % (Manual) Lymphocytes % (Manual) Monocytes % (Manual) Nucleated RBC % Seg Neutrophils # Man Lymphocytes # (Manual) Monocytes # (Manual) Eosinophils # (Manual) APTT POC ABG pH ABG pH POC ABG pCO2 POC ABG pO2 ABG pO2 ABG HCO3 ABG O2 Saturation ABG Base Excess ABG Hemoglobin VBG pH Oxyhemoglobin Sodium Potassium Chloride Carbon Dioxide BUN Creatinine Glucose POC Glucose 247 H 268 H 233 H Lactic Acid Calcium Phosphorus Total Bilirubin AST ALT C-Reactive Protein Total Protein Albumin Triglycerides Amylase Lipase Urine WBC (Auto) Vancomycin Trough 12/15/17 12/15/17 12/15/17 17:00 18:59 21:37 WBC RBC Hgb Hct MCV MCH MCHC RDW Plt Count Seg Neuts % (Manual) Lymphocytes % (Manual) Monocytes % (Manual) Nucleated RBC % Seg Neutrophils # Man Lymphocytes # (Manual) Monocytes # (Manual) Eosinophils # (Manual) APTT POC ABG pH ABG pH POC ABG pCO2 POC ABG pO2 ABG pO2 ABG HCO3 ABG O2 Saturation ABG Base Excess ABG Hemoglobin VBG pH Oxyhemoglobin Sodium Potassium Chloride Carbon Dioxide BUN Creatinine Glucose POC Glucose 195 H 208 H Lactic Acid Calcium Phosphorus Total Bilirubin AST ALT C-Reactive Protein Total Protein Albumin Triglycerides Amylase Lipase Urine WBC (Auto) 38.0 H Vancomycin Trough 12/16/17 12/16/17 12/16/17 03:17 03:33 04:18 WBC 16.4 H RBC 3.50 L Hgb 11.3 L Hct 35.4 L MCV 101 H MCH MCHC RDW Plt Count 54 L Seg Neuts % (Manual) Lymphocytes % (Manual) Monocytes % (Manual) Nucleated RBC % Seg Neutrophils # Man Lymphocytes # (Manual) Monocytes # (Manual) Eosinophils # (Manual) APTT POC ABG pH ABG pH POC ABG pCO2 47.7 H POC ABG pO2 ABG pO2 ABG HCO3 ABG O2 Saturation ABG Base Excess ABG Hemoglobin VBG pH Oxyhemoglobin Sodium Potassium Chloride Carbon Dioxide BUN Creatinine Glucose POC Glucose 227 H Lactic Acid Calcium Phosphorus Total Bilirubin AST ALT C-Reactive Protein Total Protein Albumin Triglycerides Amylase Lipase Urine WBC (Auto) Vancomycin Trough 12/16/17 12/16/17 12/16/17 04:18 05:08 10:01 WBC RBC Hgb Hct MCV MCH MCHC RDW Plt Count Seg Neuts % (Manual) Lymphocytes % (Manual) Monocytes % (Manual) Nucleated RBC % Seg Neutrophils # Man Lymphocytes # (Manual) Monocytes # (Manual) Eosinophils # (Manual) APTT POC ABG pH ABG pH POC ABG pCO2 POC ABG pO2 ABG pO2 ABG HCO3 ABG O2 Saturation ABG Base Excess ABG Hemoglobin VBG pH Oxyhemoglobin Sodium 147 H Potassium Chloride 107.4 H Carbon Dioxide BUN 28 H Creatinine Glucose 240 H POC Glucose 227 H 190 H Lactic Acid Calcium 8.3 L Phosphorus Total Bilirubin AST ALT C-Reactive Protein Total Protein Albumin Triglycerides Amylase Lipase Urine WBC (Auto) Vancomycin Trough 12/16/17 12/16/17 12/16/17 14:15 17:51 21:14 WBC RBC Hgb Hct MCV MCH MCHC RDW Plt Count Seg Neuts % (Manual) Lymphocytes % (Manual) Monocytes % (Manual) Nucleated RBC % Seg Neutrophils # Man Lymphocytes # (Manual) Monocytes # (Manual) Eosinophils # (Manual) APTT POC ABG pH ABG pH POC ABG pCO2 POC ABG pO2 ABG pO2 ABG HCO3 ABG O2 Saturation ABG Base Excess ABG Hemoglobin VBG pH Oxyhemoglobin Sodium Potassium Chloride Carbon Dioxide BUN Creatinine Glucose POC Glucose 279 H 272 H 260 H Lactic Acid Calcium Phosphorus Total Bilirubin AST ALT C-Reactive Protein Total Protein Albumin Triglycerides Amylase Lipase Urine WBC (Auto) Vancomycin Trough 12/17/17 12/17/17 12/17/17 02:41 04:28 04:28 WBC 19.1 H RBC 3.50 L Hgb 11.4 L Hct 35.3 L MCV 101 H MCH 33 H MCHC RDW Plt Count 65 L Seg Neuts % (Manual) Lymphocytes % (Manual) Monocytes % (Manual) Nucleated RBC % Seg Neutrophils # Man Lymphocytes # (Manual) Monocytes # (Manual) Eosinophils # (Manual) APTT POC ABG pH ABG pH POC ABG pCO2 POC ABG pO2 ABG pO2 ABG HCO3 ABG O2 Saturation ABG Base Excess ABG Hemoglobin VBG pH Oxyhemoglobin Sodium 153 H Potassium Chloride 111.2 H Carbon Dioxide 31 H BUN 28 H Creatinine Glucose 248 H POC Glucose 300 H Lactic Acid Calcium Phosphorus Total Bilirubin AST ALT C-Reactive Protein Total Protein Albumin Triglycerides Amylase Lipase Urine WBC (Auto) Vancomycin Trough 12/17/17 12/17/17 12/17/17 05:15 05:38 10:16 WBC RBC Hgb Hct MCV MCH MCHC RDW Plt Count Seg Neuts % (Manual) Lymphocytes % (Manual) Monocytes % (Manual) Nucleated RBC % Seg Neutrophils # Man Lymphocytes # (Manual) Monocytes # (Manual) Eosinophils # (Manual) APTT POC ABG pH ABG pH POC ABG pCO2 50.3 H POC ABG pO2 120 H ABG pO2 ABG HCO3 ABG O2 Saturation ABG Base Excess ABG Hemoglobin VBG pH Oxyhemoglobin Sodium Potassium Chloride Carbon Dioxide BUN Creatinine Glucose POC Glucose 231 H 196 H Lactic Acid Calcium Phosphorus Total Bilirubin AST ALT C-Reactive Protein Total Protein Albumin Triglycerides Amylase Lipase Urine WBC (Auto) Vancomycin Trough 12/17/17 12/17/17 12/17/17 14:22 18:14 21:35 WBC RBC Hgb Hct MCV MCH MCHC RDW Plt Count Seg Neuts % (Manual) Lymphocytes % (Manual) Monocytes % (Manual) Nucleated RBC % Seg Neutrophils # Man Lymphocytes # (Manual) Monocytes # (Manual) Eosinophils # (Manual) APTT POC ABG pH ABG pH POC ABG pCO2 POC ABG pO2 ABG pO2 ABG HCO3 ABG O2 Saturation ABG Base Excess ABG Hemoglobin VBG pH Oxyhemoglobin Sodium Potassium Chloride Carbon Dioxide BUN Creatinine Glucose POC Glucose 234 H 215 H 159 H Lactic Acid Calcium Phosphorus Total Bilirubin AST ALT C-Reactive Protein Total Protein Albumin Triglycerides Amylase Lipase Urine WBC (Auto) Vancomycin Trough 12/18/17 12/18/17 12/18/17 00:53 02:58 06:03 WBC RBC Hgb Hct MCV MCH MCHC RDW Plt Count Seg Neuts % (Manual) Lymphocytes % (Manual) Monocytes % (Manual) Nucleated RBC % Seg Neutrophils # Man Lymphocytes # (Manual) Monocytes # (Manual) Eosinophils # (Manual) APTT POC ABG pH ABG pH POC ABG pCO2 56.4 H POC ABG pO2 46 L ABG pO2 ABG HCO3 ABG O2 Saturation ABG Base Excess ABG Hemoglobin VBG pH Oxyhemoglobin Sodium Potassium Chloride Carbon Dioxide BUN Creatinine Glucose POC Glucose 176 H 143 H Lactic Acid Calcium Phosphorus Total Bilirubin AST ALT C-Reactive Protein Total Protein Albumin Triglycerides Amylase Lipase Urine WBC (Auto) Vancomycin Trough 12/18/17 12/18/17 12/18/17 07:59 09:20 09:20 WBC 27.4 H RBC 3.57 L Hgb 11.4 L Hct MCV 101 H MCH MCHC RDW Plt Count 64 L Seg Neuts % (Manual) Lymphocytes % (Manual) Monocytes % (Manual) Nucleated RBC % Seg Neutrophils # Man Lymphocytes # (Manual) Monocytes # (Manual) Eosinophils # (Manual) APTT POC ABG pH ABG pH POC ABG pCO2 POC ABG pO2 ABG pO2 ABG HCO3 ABG O2 Saturation ABG Base Excess ABG Hemoglobin VBG pH Oxyhemoglobin Sodium 152 H Potassium Chloride 107.9 H Carbon Dioxide 34 H BUN 23 H Creatinine 0.7 L Glucose 181 H POC Glucose 197 H Lactic Acid Calcium Phosphorus Total Bilirubin AST ALT C-Reactive Protein Total Protein Albumin Triglycerides Amylase Lipase Urine WBC (Auto) Vancomycin Trough 12/18/17 12/18/17 12/18/17 10:22 15:03 18:15 WBC RBC Hgb Hct MCV MCH MCHC RDW Plt Count Seg Neuts % (Manual) Lymphocytes % (Manual) Monocytes % (Manual) Nucleated RBC % Seg Neutrophils # Man Lymphocytes # (Manual) Monocytes # (Manual) Eosinophils # (Manual) APTT POC ABG pH ABG pH POC ABG pCO2 POC ABG pO2 ABG pO2 ABG HCO3 ABG O2 Saturation ABG Base Excess ABG Hemoglobin VBG pH Oxyhemoglobin Sodium Potassium Chloride Carbon Dioxide BUN Creatinine Glucose POC Glucose 195 H 225 H 238 H Lactic Acid Calcium Phosphorus Total Bilirubin AST ALT C-Reactive Protein Total Protein Albumin Triglycerides Amylase Lipase Urine WBC (Auto) Vancomycin Trough 12/18/17 12/18/17 12/19/17 18:29 21:53 00:18 WBC RBC Hgb Hct MCV MCH MCHC RDW Plt Count Seg Neuts % (Manual) Lymphocytes % (Manual) Monocytes % (Manual) Nucleated RBC % Seg Neutrophils # Man Lymphocytes # (Manual) Monocytes # (Manual) Eosinophils # (Manual) APTT POC ABG pH 7.476 H ABG pH POC ABG pCO2 50.4 H POC ABG pO2 158 H ABG pO2 ABG HCO3 ABG O2 Saturation ABG Base Excess ABG Hemoglobin VBG pH Oxyhemoglobin Sodium Potassium Chloride Carbon Dioxide BUN Creatinine Glucose POC Glucose 231 H 263 H Lactic Acid Calcium Phosphorus Total Bilirubin AST ALT C-Reactive Protein Total Protein Albumin Triglycerides Amylase Lipase Urine WBC (Auto) Vancomycin Trough 12/19/17 12/19/17 12/19/17 02:09 04:07 04:07 WBC 25.9 H RBC 3.25 L Hgb 10.6 L Hct 32.8 L MCV 101 H MCH 33 H MCHC RDW Plt Count 67 L Seg Neuts % (Manual) Lymphocytes % (Manual) 4.0 L Monocytes % (Manual) Nucleated RBC % Seg Neutrophils # Man 14.8 H Lymphocytes # (Manual) 1.0 L Monocytes # (Manual) Eosinophils # (Manual) APTT POC ABG pH ABG pH POC ABG pCO2 POC ABG pO2 ABG pO2 ABG HCO3 ABG O2 Saturation ABG Base Excess ABG Hemoglobin VBG pH Oxyhemoglobin Sodium 148 H Potassium Chloride Carbon Dioxide BUN 31 H Creatinine Glucose 314 H POC Glucose 300 H Lactic Acid Calcium 8.1 L Phosphorus Total Bilirubin AST ALT C-Reactive Protein Total Protein Albumin Triglycerides Amylase Lipase Urine WBC (Auto) Vancomycin Trough 12/19/17 12/19/17 12/19/17 05:15 05:41 07:57 WBC RBC Hgb Hct MCV MCH MCHC RDW Plt Count Seg Neuts % (Manual) Lymphocytes % (Manual) Monocytes % (Manual) Nucleated RBC % Seg Neutrophils # Man Lymphocytes # (Manual) Monocytes # (Manual) Eosinophils # (Manual) APTT POC ABG pH 7.507 H ABG pH POC ABG pCO2 POC ABG pO2 ABG pO2 ABG HCO3 ABG O2 Saturation ABG Base Excess ABG Hemoglobin VBG pH Oxyhemoglobin Sodium Potassium Chloride Carbon Dioxide BUN Creatinine Glucose POC Glucose 331 H 307 H Lactic Acid Calcium Phosphorus Total Bilirubin AST ALT C-Reactive Protein Total Protein Albumin Triglycerides Amylase Lipase Urine WBC (Auto) Vancomycin Trough 12/19/17 12/19/17 12/19/17 10:21 14:48 17:59 WBC RBC Hgb Hct MCV MCH MCHC RDW Plt Count Seg Neuts % (Manual) Lymphocytes % (Manual) Monocytes % (Manual) Nucleated RBC % Seg Neutrophils # Man Lymphocytes # (Manual) Monocytes # (Manual) Eosinophils # (Manual) APTT POC ABG pH ABG pH POC ABG pCO2 POC ABG pO2 ABG pO2 ABG HCO3 ABG O2 Saturation ABG Base Excess ABG Hemoglobin VBG pH Oxyhemoglobin Sodium Potassium Chloride Carbon Dioxide BUN Creatinine Glucose POC Glucose 358 H 327 H 355 H Lactic Acid Calcium Phosphorus Total Bilirubin AST ALT C-Reactive Protein Total Protein Albumin Triglycerides Amylase Lipase Urine WBC (Auto) Vancomycin Trough 12/19/17 12/20/17 12/20/17 21:38 02:21 03:42 WBC RBC Hgb Hct MCV MCH MCHC RDW Plt Count Seg Neuts % (Manual) Lymphocytes % (Manual) Monocytes % (Manual) Nucleated RBC % Seg Neutrophils # Man Lymphocytes # (Manual) Monocytes # (Manual) Eosinophils # (Manual) APTT POC ABG pH 7.494 H ABG pH POC ABG pCO2 POC ABG pO2 ABG pO2 ABG HCO3 ABG O2 Saturation ABG Base Excess ABG Hemoglobin VBG pH Oxyhemoglobin Sodium Potassium Chloride Carbon Dioxide BUN Creatinine Glucose POC Glucose 329 H 354 H Lactic Acid Calcium Phosphorus Total Bilirubin AST ALT C-Reactive Protein Total Protein Albumin Triglycerides Amylase Lipase Urine WBC (Auto) Vancomycin Trough 12/20/17 12/20/17 12/20/17 04:08 04:08 04:08 WBC 22.7 H RBC 3.26 L Hgb 10.6 L Hct 32.9 L MCV 101 H MCH 33 H MCHC RDW Plt Count 78 L Seg Neuts % (Manual) 80.0 H Lymphocytes % (Manual) 6.0 L Monocytes % (Manual) Nucleated RBC % Seg Neutrophils # Man 18.2 H Lymphocytes # (Manual) Monocytes # (Manual) Eosinophils # (Manual) APTT POC ABG pH ABG pH POC ABG pCO2 POC ABG pO2 ABG pO2 ABG HCO3 ABG O2 Saturation ABG Base Excess ABG Hemoglobin VBG pH Oxyhemoglobin Sodium Potassium Chloride Carbon Dioxide 31 H BUN 30 H Creatinine 0.6 L Glucose 365 H POC Glucose Lactic Acid Calcium Phosphorus Total Bilirubin AST ALT C-Reactive Protein Total Protein Albumin Triglycerides 981 H Amylase Lipase Urine WBC (Auto) Vancomycin Trough 12/20/17 12/20/17 12/20/17 05:15 10:47 13:40 WBC RBC Hgb Hct MCV MCH MCHC RDW Plt Count Seg Neuts % (Manual) Lymphocytes % (Manual) Monocytes % (Manual) Nucleated RBC % Seg Neutrophils # Man Lymphocytes # (Manual) Monocytes # (Manual) Eosinophils # (Manual) APTT POC ABG pH ABG pH POC ABG pCO2 POC ABG pO2 ABG pO2 ABG HCO3 ABG O2 Saturation ABG Base Excess ABG Hemoglobin VBG pH Oxyhemoglobin Sodium Potassium Chloride Carbon Dioxide BUN Creatinine Glucose POC Glucose 342 H 330 H Lactic Acid Calcium Phosphorus Total Bilirubin AST ALT C-Reactive Protein 7.10 H Total Protein Albumin Triglycerides Amylase Lipase Urine WBC (Auto) Vancomycin Trough 12/20/17 12/20/17 12/20/17 13:40 14:52 16:55 WBC RBC Hgb Hct MCV MCH MCHC RDW Plt Count Seg Neuts % (Manual) Lymphocytes % (Manual) Monocytes % (Manual) Nucleated RBC % Seg Neutrophils # Man Lymphocytes # (Manual) Monocytes # (Manual) Eosinophils # (Manual) APTT POC ABG pH 7.484 H ABG pH POC ABG pCO2 POC ABG pO2 ABG pO2 ABG HCO3 ABG O2 Saturation ABG Base Excess ABG Hemoglobin VBG pH Oxyhemoglobin Sodium Potassium Chloride Carbon Dioxide BUN Creatinine Glucose POC Glucose 293 H Lactic Acid Calcium Phosphorus Total Bilirubin AST ALT C-Reactive Protein Total Protein Albumin Triglycerides 1042 H Amylase Lipase Urine WBC (Auto) Vancomycin Trough 12/20/17 12/20/17 12/21/17 18:00 21:58 02:05 WBC RBC Hgb Hct MCV MCH MCHC RDW Plt Count Seg Neuts % (Manual) Lymphocytes % (Manual) Monocytes % (Manual) Nucleated RBC % Seg Neutrophils # Man Lymphocytes # (Manual) Monocytes # (Manual) Eosinophils # (Manual) APTT POC ABG pH ABG pH POC ABG pCO2 POC ABG pO2 ABG pO2 ABG HCO3 ABG O2 Saturation ABG Base Excess ABG Hemoglobin VBG pH Oxyhemoglobin Sodium Potassium Chloride Carbon Dioxide BUN Creatinine Glucose POC Glucose 268 H 272 H 229 H Lactic Acid Calcium Phosphorus Total Bilirubin AST ALT C-Reactive Protein Total Protein Albumin Triglycerides Amylase Lipase Urine WBC (Auto) Vancomycin Trough 12/21/17 12/21/17 12/21/17 03:59 06:23 08:57 WBC RBC Hgb Hct MCV MCH MCHC RDW Plt Count Seg Neuts % (Manual) Lymphocytes % (Manual) Monocytes % (Manual) Nucleated RBC % Seg Neutrophils # Man Lymphocytes # (Manual) Monocytes # (Manual) Eosinophils # (Manual) APTT POC ABG pH 7.474 H ABG pH POC ABG pCO2 POC ABG pO2 71 L ABG pO2 ABG HCO3 ABG O2 Saturation ABG Base Excess ABG Hemoglobin VBG pH Oxyhemoglobin Sodium Potassium Chloride Carbon Dioxide BUN Creatinine Glucose POC Glucose 182 H 217 H Lactic Acid Calcium Phosphorus Total Bilirubin AST ALT C-Reactive Protein Total Protein Albumin Triglycerides Amylase Lipase Urine WBC (Auto) Vancomycin Trough 12/21/17 12/21/17 12/21/17 13:59 18:00 21:20 WBC RBC Hgb Hct MCV MCH MCHC RDW Plt Count Seg Neuts % (Manual) Lymphocytes % (Manual) Monocytes % (Manual) Nucleated RBC % Seg Neutrophils # Man Lymphocytes # (Manual) Monocytes # (Manual) Eosinophils # (Manual) APTT POC ABG pH ABG pH POC ABG pCO2 POC ABG pO2 ABG pO2 ABG HCO3 ABG O2 Saturation ABG Base Excess ABG Hemoglobin VBG pH Oxyhemoglobin Sodium Potassium Chloride Carbon Dioxide BUN Creatinine Glucose POC Glucose 185 H 176 H 187 H Lactic Acid Calcium Phosphorus Total Bilirubin AST ALT C-Reactive Protein Total Protein Albumin Triglycerides Amylase Lipase Urine WBC (Auto) Vancomycin Trough 12/21/17 12/22/17 12/22/17 23:48 04:39 05:30 WBC RBC Hgb Hct MCV MCH MCHC RDW Plt Count Seg Neuts % (Manual) Lymphocytes % (Manual) Monocytes % (Manual) Nucleated RBC % Seg Neutrophils # Man Lymphocytes # (Manual) Monocytes # (Manual) Eosinophils # (Manual) APTT POC ABG pH 7.528 H ABG pH POC ABG pCO2 POC ABG pO2 63 L ABG pO2 ABG HCO3 ABG O2 Saturation ABG Base Excess ABG Hemoglobin VBG pH Oxyhemoglobin Sodium Potassium Chloride Carbon Dioxide BUN Creatinine Glucose POC Glucose 126 H 117 H Lactic Acid Calcium Phosphorus Total Bilirubin AST ALT C-Reactive Protein Total Protein Albumin Triglycerides Amylase Lipase Urine WBC (Auto) Vancomycin Trough 12/22/17 12/22/17 12/22/17 09:12 10:34 10:34 WBC 29.5 H RBC 3.44 L Hgb 11.2 L Hct 34.2 L MCV 99 H MCH 33 H MCHC RDW 13.1 L Plt Count 97 L Seg Neuts % (Manual) 88.0 H Lymphocytes % (Manual) 5.0 L Monocytes % (Manual) Nucleated RBC % Seg Neutrophils # Man 26.0 H Lymphocytes # (Manual) Monocytes # (Manual) Eosinophils # (Manual) APTT POC ABG pH ABG pH POC ABG pCO2 POC ABG pO2 ABG pO2 ABG HCO3 ABG O2 Saturation ABG Base Excess ABG Hemoglobin VBG pH Oxyhemoglobin Sodium 146 H Potassium 3.1 L Chloride Carbon Dioxide BUN 25 H Creatinine 0.7 L Glucose 146 H POC Glucose 168 H Lactic Acid Calcium 8.1 L Phosphorus Total Bilirubin AST ALT C-Reactive Protein Total Protein Albumin Triglycerides Amylase Lipase Urine WBC (Auto) Vancomycin Trough 12/22/17 12/22/17 12/22/17 14:51 17:21 21:43 WBC RBC Hgb Hct MCV MCH MCHC RDW Plt Count Seg Neuts % (Manual) Lymphocytes % (Manual) Monocytes % (Manual) Nucleated RBC % Seg Neutrophils # Man Lymphocytes # (Manual) Monocytes # (Manual) Eosinophils # (Manual) APTT POC ABG pH ABG pH POC ABG pCO2 POC ABG pO2 ABG pO2 ABG HCO3 ABG O2 Saturation ABG Base Excess ABG Hemoglobin VBG pH Oxyhemoglobin Sodium Potassium Chloride Carbon Dioxide BUN Creatinine Glucose POC Glucose 125 H 110 H 153 H Lactic Acid Calcium Phosphorus Total Bilirubin AST ALT C-Reactive Protein Total Protein Albumin Triglycerides Amylase Lipase Urine WBC (Auto) Vancomycin Trough 12/23/17 12/23/17 12/23/17 04:33 05:28 09:25 WBC 31.4 H RBC 3.05 L Hgb 9.8 L Hct 30.2 L MCV 99 H MCH MCHC RDW 12.9 L Plt Count 101 L Seg Neuts % (Manual) 97 H Lymphocytes % (Manual) 2 L Monocytes % (Manual) Nucleated RBC % Seg Neutrophils # Man 31.1 H Lymphocytes # (Manual) 0.5 L Monocytes # (Manual) Eosinophils # (Manual) APTT POC ABG pH 7.573 H ABG pH POC ABG pCO2 31.0 L POC ABG pO2 63 L ABG pO2 ABG HCO3 ABG O2 Saturation ABG Base Excess ABG Hemoglobin VBG pH Oxyhemoglobin Sodium Potassium Chloride Carbon Dioxide BUN Creatinine Glucose POC Glucose 124 H Lactic Acid Calcium Phosphorus Total Bilirubin AST ALT C-Reactive Protein Total Protein Albumin Triglycerides Amylase Lipase Urine WBC (Auto) Vancomycin Trough 12/23/17 12/23/17 12/23/17 09:25 10:08 14:20 WBC RBC Hgb Hct MCV MCH MCHC RDW Plt Count Seg Neuts % (Manual) Lymphocytes % (Manual) Monocytes % (Manual) Nucleated RBC % Seg Neutrophils # Man Lymphocytes # (Manual) Monocytes # (Manual) Eosinophils # (Manual) APTT POC ABG pH ABG pH POC ABG pCO2 POC ABG pO2 ABG pO2 ABG HCO3 ABG O2 Saturation ABG Base Excess ABG Hemoglobin VBG pH Oxyhemoglobin Sodium Potassium 3.1 L Chloride Carbon Dioxide BUN Creatinine 0.6 L Glucose 169 H POC Glucose 171 H 211 H Lactic Acid Calcium 7.9 L Phosphorus Total Bilirubin AST ALT C-Reactive Protein Total Protein Albumin Triglycerides Amylase Lipase Urine WBC (Auto) Vancomycin Trough 12/23/17 12/23/17 12/24/17 18:59 21:49 01:47 WBC RBC Hgb Hct MCV MCH MCHC RDW Plt Count Seg Neuts % (Manual) Lymphocytes % (Manual) Monocytes % (Manual) Nucleated RBC % Seg Neutrophils # Man Lymphocytes # (Manual) Monocytes # (Manual) Eosinophils # (Manual) APTT POC ABG pH ABG pH POC ABG pCO2 POC ABG pO2 ABG pO2 ABG HCO3 ABG O2 Saturation ABG Base Excess ABG Hemoglobin VBG pH Oxyhemoglobin Sodium Potassium Chloride Carbon Dioxide BUN Creatinine Glucose POC Glucose 175 H 146 H 143 H Lactic Acid Calcium Phosphorus Total Bilirubin AST ALT C-Reactive Protein Total Protein Albumin Triglycerides Amylase Lipase Urine WBC (Auto) Vancomycin Trough 12/24/17 12/24/17 12/24/17 05:40 10:12 13:12 WBC RBC Hgb Hct MCV MCH MCHC RDW Plt Count Seg Neuts % (Manual) Lymphocytes % (Manual) Monocytes % (Manual) Nucleated RBC % Seg Neutrophils # Man Lymphocytes # (Manual) Monocytes # (Manual) Eosinophils # (Manual) APTT POC ABG pH 7.558 H ABG pH POC ABG pCO2 27.6 L POC ABG pO2 71 L ABG pO2 ABG HCO3 ABG O2 Saturation ABG Base Excess ABG Hemoglobin VBG pH Oxyhemoglobin Sodium Potassium Chloride Carbon Dioxide BUN Creatinine Glucose POC Glucose 118 H 111 H Lactic Acid Calcium Phosphorus Total Bilirubin AST ALT C-Reactive Protein Total Protein Albumin Triglycerides Amylase Lipase Urine WBC (Auto) Vancomycin Trough 12/24/17 12/24/17 12/24/17 16:26 20:44 21:49 WBC RBC Hgb Hct MCV MCH MCHC RDW Plt Count Seg Neuts % (Manual) Lymphocytes % (Manual) Monocytes % (Manual) Nucleated RBC % Seg Neutrophils # Man Lymphocytes # (Manual) Monocytes # (Manual) Eosinophils # (Manual) APTT POC ABG pH ABG pH POC ABG pCO2 POC ABG pO2 ABG pO2 ABG HCO3 ABG O2 Saturation ABG Base Excess ABG Hemoglobin VBG pH Oxyhemoglobin Sodium Potassium Chloride Carbon Dioxide BUN Creatinine Glucose POC Glucose 113 H 124 H 115 H Lactic Acid Calcium Phosphorus Total Bilirubin AST ALT C-Reactive Protein Total Protein Albumin Triglycerides Amylase Lipase Urine WBC (Auto) Vancomycin Trough 12/24/17 12/25/17 12/25/17 Unknown 02:26 03:38 WBC RBC Hgb Hct MCV MCH MCHC RDW Plt Count Seg Neuts % (Manual) Lymphocytes % (Manual) Monocytes % (Manual) Nucleated RBC % Seg Neutrophils # Man Lymphocytes # (Manual) Monocytes # (Manual) Eosinophils # (Manual) APTT POC ABG pH 7.503 H ABG pH POC ABG pCO2 POC ABG pO2 66 L ABG pO2 ABG HCO3 ABG O2 Saturation ABG Base Excess ABG Hemoglobin VBG pH Oxyhemoglobin Sodium Potassium 3.0 L Chloride Carbon Dioxide BUN Creatinine 0.5 L Glucose 166 H POC Glucose 106 H Lactic Acid Calcium 7.8 L Phosphorus Total Bilirubin AST ALT C-Reactive Protein Total Protein Albumin Triglycerides Amylase Lipase Urine WBC (Auto) Vancomycin Trough 12/25/17 12/25/17 12/25/17 04:58 12:58 15:06 WBC RBC Hgb Hct MCV MCH MCHC RDW Plt Count Seg Neuts % (Manual) Lymphocytes % (Manual) Monocytes % (Manual) Nucleated RBC % Seg Neutrophils # Man Lymphocytes # (Manual) Monocytes # (Manual) Eosinophils # (Manual) APTT POC ABG pH ABG pH POC ABG pCO2 POC ABG pO2 ABG pO2 ABG HCO3 ABG O2 Saturation ABG Base Excess ABG Hemoglobin VBG pH Oxyhemoglobin Sodium Potassium Chloride Carbon Dioxide BUN Creatinine Glucose POC Glucose 113 H 118 H Lactic Acid Calcium Phosphorus Total Bilirubin AST ALT C-Reactive Protein Total Protein Albumin Triglycerides Amylase Lipase Urine WBC (Auto) Vancomycin Trough 22.5 H 12/25/17 12/25/17 12/25/17 17:59 21:33 Unknown WBC 20.5 H RBC 2.75 L Hgb 9.1 L Hct 27.1 L MCV 99 H MCH 33 H MCHC RDW Plt Count 126 L Seg Neuts % (Manual) 89.0 H Lymphocytes % (Manual) 6.0 L Monocytes % (Manual) Nucleated RBC % Seg Neutrophils # Man 18.2 H Lymphocytes # (Manual) Monocytes # (Manual) Eosinophils # (Manual) APTT POC ABG pH ABG pH POC ABG pCO2 POC ABG pO2 ABG pO2 ABG HCO3 ABG O2 Saturation ABG Base Excess ABG Hemoglobin VBG pH Oxyhemoglobin Sodium Potassium Chloride Carbon Dioxide BUN Creatinine Glucose POC Glucose 145 H 167 H Lactic Acid Calcium Phosphorus Total Bilirubin AST ALT C-Reactive Protein Total Protein Albumin Triglycerides Amylase Lipase Urine WBC (Auto) Vancomycin Trough 12/25/17 12/26/17 12/26/17 Unknown 02:26 05:29 WBC RBC Hgb Hct MCV MCH MCHC RDW Plt Count Seg Neuts % (Manual) Lymphocytes % (Manual) Monocytes % (Manual) Nucleated RBC % Seg Neutrophils # Man Lymphocytes # (Manual) Monocytes # (Manual) Eosinophils # (Manual) APTT POC ABG pH ABG pH POC ABG pCO2 POC ABG pO2 ABG pO2 ABG HCO3 ABG O2 Saturation ABG Base Excess ABG Hemoglobin VBG pH Oxyhemoglobin Sodium Potassium 2.8 L* Chloride Carbon Dioxide BUN Creatinine 0.6 L Glucose POC Glucose 167 H 216 H Lactic Acid Calcium 7.4 L Phosphorus Total Bilirubin AST ALT C-Reactive Protein Total Protein Albumin Triglycerides Amylase Lipase Urine WBC (Auto) Vancomycin Trough 12/26/17 12/26/17 12/26/17 10:21 14:30 18:35 WBC RBC Hgb Hct MCV MCH MCHC RDW Plt Count Seg Neuts % (Manual) Lymphocytes % (Manual) Monocytes % (Manual) Nucleated RBC % Seg Neutrophils # Man Lymphocytes # (Manual) Monocytes # (Manual) Eosinophils # (Manual) APTT POC ABG pH ABG pH POC ABG pCO2 POC ABG pO2 ABG pO2 ABG HCO3 ABG O2 Saturation ABG Base Excess ABG Hemoglobin VBG pH Oxyhemoglobin Sodium Potassium Chloride Carbon Dioxide BUN Creatinine Glucose POC Glucose 164 H 157 H 146 H Lactic Acid Calcium Phosphorus Total Bilirubin AST ALT C-Reactive Protein Total Protein Albumin Triglycerides Amylase Lipase Urine WBC (Auto) Vancomycin Trough 12/26/17 12/26/17 12/27/17 21:21 Unknown 01:54 WBC RBC Hgb Hct MCV MCH MCHC RDW Plt Count Seg Neuts % (Manual) Lymphocytes % (Manual) Monocytes % (Manual) Nucleated RBC % Seg Neutrophils # Man Lymphocytes # (Manual) Monocytes # (Manual) Eosinophils # (Manual) APTT POC ABG pH ABG pH POC ABG pCO2 POC ABG pO2 ABG pO2 ABG HCO3 ABG O2 Saturation ABG Base Excess ABG Hemoglobin VBG pH Oxyhemoglobin Sodium Potassium 3.0 L Chloride Carbon Dioxide BUN Creatinine 0.5 L Glucose 166 H POC Glucose 132 H 157 H Lactic Acid Calcium 7.8 L Phosphorus Total Bilirubin AST ALT C-Reactive Protein Total Protein Albumin Triglycerides Amylase Lipase Urine WBC (Auto) Vancomycin Trough 12/27/17 12/27/17 12/27/17 05:20 05:20 05:44 WBC 26.4 H RBC 2.83 L Hgb 9.3 L Hct 27.6 L MCV 98 H MCH 33 H MCHC RDW Plt Count Seg Neuts % (Manual) 85.0 H Lymphocytes % (Manual) 5.0 L Monocytes % (Manual) Nucleated RBC % Seg Neutrophils # Man 22.4 H Lymphocytes # (Manual) Monocytes # (Manual) Eosinophils # (Manual) 0.5 H APTT POC ABG pH ABG pH POC ABG pCO2 POC ABG pO2 ABG pO2 ABG HCO3 ABG O2 Saturation ABG Base Excess ABG Hemoglobin VBG pH Oxyhemoglobin Sodium Potassium 2.3 L* D Chloride Carbon Dioxide BUN 7 L Creatinine 0.6 L Glucose 123 H POC Glucose 128 H Lactic Acid Calcium 8.1 L Phosphorus Total Bilirubin AST ALT C-Reactive Protein Total Protein Albumin Triglycerides Amylase Lipase Urine WBC (Auto) Vancomycin Trough 12/27/17 12/27/17 12/27/17 10:04 14:44 15:30 WBC RBC Hgb Hct MCV MCH MCHC RDW Plt Count Seg Neuts % (Manual) Lymphocytes % (Manual) Monocytes % (Manual) Nucleated RBC % Seg Neutrophils # Man Lymphocytes # (Manual) Monocytes # (Manual) Eosinophils # (Manual) APTT POC ABG pH ABG pH POC ABG pCO2 POC ABG pO2 ABG pO2 ABG HCO3 ABG O2 Saturation ABG Base Excess ABG Hemoglobin VBG pH Oxyhemoglobin Sodium Potassium 3.1 L D Chloride Carbon Dioxide BUN Creatinine Glucose POC Glucose 115 H 128 H Lactic Acid Calcium Phosphorus Total Bilirubin AST ALT C-Reactive Protein Total Protein Albumin Triglycerides Amylase Lipase Urine WBC (Auto) Vancomycin Trough 12/28/17 12/28/17 12/28/17 00:39 02:13 05:17 WBC RBC Hgb Hct MCV MCH MCHC RDW Plt Count Seg Neuts % (Manual) Lymphocytes % (Manual) Monocytes % (Manual) Nucleated RBC % Seg Neutrophils # Man Lymphocytes # (Manual) Monocytes # (Manual) Eosinophils # (Manual) APTT POC ABG pH ABG pH 7.497 H POC ABG pCO2 POC ABG pO2 ABG pO2 71.4 L ABG HCO3 29.9 H ABG O2 Saturation ABG Base Excess 6.2 H ABG Hemoglobin 7.9 L VBG pH Oxyhemoglobin 94.9 L Sodium Potassium Chloride Carbon Dioxide BUN Creatinine Glucose POC Glucose 112 H 108 H Lactic Acid Calcium Phosphorus Total Bilirubin AST ALT C-Reactive Protein Total Protein Albumin Triglycerides Amylase Lipase Urine WBC (Auto) Vancomycin Trough 12/28/17 12/28/17 12/28/17 08:47 08:47 09:10 WBC 28.1 H RBC 2.76 L Hgb 9.1 L Hct 27.0 L MCV 98 H MCH 33 H MCHC RDW Plt Count Seg Neuts % (Manual) Lymphocytes % (Manual) Monocytes % (Manual) Nucleated RBC % Seg Neutrophils # Man Lymphocytes # (Manual) Monocytes # (Manual) Eosinophils # (Manual) APTT POC ABG pH ABG pH POC ABG pCO2 POC ABG pO2 ABG pO2 ABG HCO3 ABG O2 Saturation ABG Base Excess ABG Hemoglobin VBG pH Oxyhemoglobin Sodium Potassium 2.2 L* D Chloride Carbon Dioxide BUN 5 L Creatinine 0.5 L Glucose 106 H POC Glucose Lactic Acid Calcium 8.3 L Phosphorus 2.20 L Total Bilirubin AST ALT C-Reactive Protein Total Protein Albumin Triglycerides Amylase Lipase Urine WBC (Auto) Vancomycin Trough 12/28/17 12/28/17 12/28/17 13:28 14:22 18:48 WBC RBC Hgb Hct MCV MCH MCHC RDW Plt Count Seg Neuts % (Manual) Lymphocytes % (Manual) Monocytes % (Manual) Nucleated RBC % Seg Neutrophils # Man Lymphocytes # (Manual) Monocytes # (Manual) Eosinophils # (Manual) APTT POC ABG pH ABG pH 7.476 H POC ABG pCO2 POC ABG pO2 ABG pO2 167.7 H ABG HCO3 30.9 H ABG O2 Saturation 99.1 H ABG Base Excess 6.7 H ABG Hemoglobin 8.5 L VBG pH Oxyhemoglobin Sodium Potassium Chloride Carbon Dioxide BUN Creatinine Glucose POC Glucose 141 H 129 H Lactic Acid Calcium Phosphorus Total Bilirubin AST ALT C-Reactive Protein Total Protein Albumin Triglycerides Amylase Lipase Urine WBC (Auto) Vancomycin Trough 12/28/17 12/29/17 12/29/17 21:22 02:45 05:11 WBC RBC Hgb Hct MCV MCH MCHC RDW Plt Count Seg Neuts % (Manual) Lymphocytes % (Manual) Monocytes % (Manual) Nucleated RBC % Seg Neutrophils # Man Lymphocytes # (Manual) Monocytes # (Manual) Eosinophils # (Manual) APTT POC ABG pH ABG pH POC ABG pCO2 POC ABG pO2 ABG pO2 ABG HCO3 ABG O2 Saturation ABG Base Excess ABG Hemoglobin VBG pH Oxyhemoglobin Sodium Potassium Chloride Carbon Dioxide BUN Creatinine Glucose POC Glucose 123 H 138 H 138 H Lactic Acid Calcium Phosphorus Total Bilirubin AST ALT C-Reactive Protein Total Protein Albumin Triglycerides Amylase Lipase Urine WBC (Auto) Vancomycin Trough 12/29/17 12/29/17 12/29/17 05:50 08:04 08:04 WBC 20.8 H RBC 2.26 L Hgb 7.5 L Hct 22.7 L MCV 100 H MCH 33 H MCHC RDW Plt Count Seg Neuts % (Manual) Lymphocytes % (Manual) Monocytes % (Manual) Nucleated RBC % Seg Neutrophils # Man Lymphocytes # (Manual) Monocytes # (Manual) Eosinophils # (Manual) APTT POC ABG pH ABG pH 7.467 H POC ABG pCO2 POC ABG pO2 ABG pO2 ABG HCO3 28.2 H ABG O2 Saturation ABG Base Excess 4.0 H ABG Hemoglobin < 5.1 L VBG pH Oxyhemoglobin Sodium Potassium 3.0 L D Chloride Carbon Dioxide BUN Creatinine 0.5 L Glucose 147 H POC Glucose Lactic Acid Calcium 7.8 L Phosphorus Total Bilirubin AST ALT C-Reactive Protein Total Protein 5.6 L Albumin 2.4 L Triglycerides Amylase Lipase Urine WBC (Auto) Vancomycin Trough 12/29/17 08:20 WBC RBC Hgb Hct MCV MCH MCHC RDW Plt Count Seg Neuts % (Manual) Lymphocytes % (Manual) Monocytes % (Manual) Nucleated RBC % Seg Neutrophils # Man Lymphocytes # (Manual) Monocytes # (Manual) Eosinophils # (Manual) APTT POC ABG pH ABG pH POC ABG pCO2 POC ABG pO2 ABG pO2 ABG HCO3 ABG O2 Saturation ABG Base Excess ABG Hemoglobin VBG pH Oxyhemoglobin Sodium Potassium Chloride Carbon Dioxide BUN Creatinine Glucose POC Glucose 153 H Lactic Acid Calcium Phosphorus Total Bilirubin AST ALT C-Reactive Protein Total Protein Albumin Triglycerides Amylase Lipase Urine WBC (Auto) Vancomycin Trough
[2017-12-29] MEDS: ZYVOX 600MG/300ML 600 MG/300 ML BAG IV SCH ×2 (10:47→23:07)
[2017-12-29] MEDS: SODIUM CHLORIDE FLUSH SYRINGE 10 ML IV SCH ×2 (10:50→23:09)
[2017-12-29] MEDS: VITAMIN B-1 PO SCH (10:52)
[2017-12-29] MEDS: PEPCID PO SCH ×2 (10:52→21:47)
[2017-12-29] MEDS: POTASSIUM CHLORIDE PO SCH (10:53)
[2017-12-29] MEDS: LANTUS SUB-Q SCH (10:56)
[2017-12-29] MEDS: KCL 20MEQ/100ML 20 MEQ/100 ML BAG IV SCH ×3 (11:01→13:37)
[2017-12-29] MEDS ORDERED: POTASSIUM CHLORIDE FEEDTUBE ONE (12:00)
[2017-12-29] MEDS ORDERED: KCL 20MEQ/100ML 20 MEQ/100 ML BAG IV SCH (12:00)
[2017-12-29 12:09] LABS: Basophils % (Manual) 0 % (0.0-1.8)
[2017-12-29 12:12] LABS: Anisocytosis 1+; Eosinophils % (Manual) 3.5 % (0.0-4.3); Monocytes % (Manual) 1.5 % (0.0-7.3); Platelet Estimate Consistent w Auto; Stomatocytes 1+; Total Cells Counted 200
[2017-12-30] MEDS: DEXMEDETOMIDINE 200 MCG in NACL 0.9% 48 ML IV SCH ×3 (00:35→23:16)
[2017-12-30] MEDS: LOPRESSOR IV SCH ×3 (01:53→13:43)
[2017-12-30] MEDS: HumaLOG SUB-Q SCH ×4 (02:20→21:07)
[2017-12-30] MEDS: TYLENOL PO PRN (04:40)
[2017-12-30] MEDS: SUBLIMAZE IV PRN ×2 (04:57→19:58)
[2017-12-30] MEDS: DUONEB *Not for PRN Use IH SCH ×4 (05:29→19:11)
[2017-12-30] MEDS: HEPARIN SUB-Q SCH ×3 (05:36→21:05)
[2017-12-30] MEDS: FLAGYL 500 MG/100 ML 500 MG/100 ML BAG IV SCH ×3 (05:36→20:00)
[2017-12-30 05:49] LABS: Basophils # (Auto) 0.1 K/mm3 (0.0-0.1); Basophils % (Auto) 0.6 % (0.0-1.8); Eosinophils # (Auto) 0.5 K/mm3 (0.0-0.4); Hemoglobin 7.4 gm/dl (11.8-15.2); Lymphocytes # (Auto) 1.6 K/mm3 (1.2-5.4); Mean Corpuscular HGB Conc 32 % (32-34); Mean Corpuscular Hemoglobin 33 pg (28-32); Mean Corpuscular Volume 104 fl (84-94); Monocytes # (Auto) 0.5 K/mm3 (0.0-0.8); Monocytes % (Auto) 2.5 % (0.0-7.3); Platelet Count 137 K/mm3 (140-440); Red Blood Count 2.22 M/mm3 (3.65-5.03); Red Cell Distribution Width 13.8 % (13.2-15.2)
[2017-12-30] MEDS: MAXIPIME 2 GM in NACL 0.9% 20 ML IV SCH ×3 (06:03→21:00)
[2017-12-30 06:13] LABS: BUN/Creatinine Ratio 20; Blood Urea Nitrogen 10 mg/dL (9-20); Calcium 7.4 mg/dL (8.4-10.2); Hemolysis Index 0
[2017-12-30] MEDS ORDERED: KCL 20MEQ/100ML 20 MEQ/100 ML BAG IV ONE (09:00)
[2017-12-30] MEDS ORDERED: POTASSIUM CHLORIDE FEEDTUBE SCH (10:00)
[2017-12-30] MEDS: VITAMIN B-1 PO SCH (10:53)
[2017-12-30] MEDS: PEPCID PO SCH ×2 (10:53→21:06)
[2017-12-30] MEDS: SODIUM CHLORIDE FLUSH SYRINGE 10 ML IV SCH ×2 (10:54→21:06)
[2017-12-30] MEDS: LANTUS SUB-Q SCH (10:55)
[2017-12-30] MEDS ORDERED: MAGNESIUM SULFATE 2GM/50ML 2 GM/50 ML BAG IV ONE (12:00)
--- NOTE | 2017-12-30 12:42 | Progress Note ---
Assessment and Plan Acute respiratory failure. Stable on ventilator support at this time, PEEP 10 Pneumonia. Improving Recommendations f/u hospital ventilator bundle, Mechanical ventilation support, adjust FiO2 with goal of maintaining oximetry at or above 92% Titrate PEEP up to maintain oximetry of the above oximetry level Keep PIP < 30 Sedation as needed for patient comfort, adjust to RASS -1 to - 3 Maintain extubation precautions Continue SBT if tolerated Potassium replacement DVT prophylaxis PPI prophylaxis Critical care time was 31 minutes of [id number] evaluation and coordination of care Subjective Date of service: 12/30/17 Principal diagnosis: ARDS Interval history: More awake. Apparently, no shortness of breath and some discomfort Objective Vital Signs - 12hr 12/30/17 12/30/17 12/30/17 01:00 01:53 02:00 Temperature Pulse Rate 106 H 108 H Pulse Rate [ 96 H Anterior Bilateral Throughout] Respiratory 29 H 28 H Rate Respiratory 23 Rate [Anterior Bilateral Throughout] Blood Pressure 119/70 114/68 125/71 O2 Sat by Pulse 96 95 Oximetry 12/30/17 12/30/17 12/30/17 03:00 04:00 05:00 Temperature 102.4 F H Pulse Rate 111 H 98 H 104 H Pulse Rate [ Anterior Bilateral Throughout] Respiratory 16 41 H 34 H Rate Respiratory Rate [Anterior Bilateral Throughout] Blood Pressure 121/65 127/70 127/70 O2 Sat by Pulse 93 96 92 Oximetry 12/30/17 12/30/17 12/30/17 05:27 06:00 06:06 Temperature Pulse Rate 98 H 96 H Pulse Rate [ Anterior Bilateral Throughout] Respiratory 25 H 25 H Rate Respiratory Rate [Anterior Bilateral Throughout] Blood Pressure 117/68 104/60 O2 Sat by Pulse 99 Oximetry 12/30/17 12/30/17 12/30/17 07:00 08:00 08:18 Temperature 99.4 F Pulse Rate 96 H 89 84 Pulse Rate [ Anterior Bilateral Throughout] Respiratory 29 H 25 H Rate Respiratory Rate [Anterior Bilateral Throughout] Blood Pressure 116/73 110/68 110/68 O2 Sat by Pulse 97 98 99 Oximetry 12/30/17 12/30/17 12/30/17 09:00 10:00 11:00 Temperature Pulse Rate 87 87 93 H Pulse Rate [ Anterior Bilateral Throughout] Respiratory 26 H 26 H 33 H Rate Respiratory Rate [Anterior Bilateral Throughout] Blood Pressure 102/59 102/66 119/74 O2 Sat by Pulse 97 96 98 Oximetry 12/30/17 12:00 Temperature 100.4 F H Pulse Rate Pulse Rate [ Anterior Bilateral Throughout] Respiratory Rate Respiratory Rate [Anterior Bilateral Throughout] Blood Pressure O2 Sat by Pulse Oximetry Constitutional: other (intubated, somnolent) Eyes: non-icteric ENT: oropharynx moist Neck: supple, no JVD Effort: normal Ascultation: Right: rales, Bilateral: diminished breath sounds, other (coarse BS bilaterally) Percussion: Bilateral: not dull Tactile fremitus: Bilateral: normal Cardiovascular: regular rate and rhythm Gastrointestinal: normoactive bowel sounds, soft, non-tender, non-distended, other (obese) Integumentary: normal Extremities: no cyanosis, no edema, pink and warm Neurologic: normal mental status (at this time of examination) Psychiatric: other (not able to assess) CBC and BMP: 12/30/17 04:50 12/30/17 04:50 ABG, PT/INR, D-dimer: ABG POC ABG pH 7.503 (7.35-7.45) H 12/25/17 03:38 ABG pH 7.467 pH Units (7.350-7.450) H 12/29/17 05:50 POC ABG pCO2 35.8 (35-45) 12/25/17 03:38 ABG pCO2 39.9 mm Hg 12/29/17 05:50 POC ABG pO2 66 (80-105) L 12/25/17 03:38 ABG pO2 85.3 mm Hg (80.0-90.0) 12/29/17 05:50 POC ABG HCO3 28.1 12/25/17 03:38 POC ABG Total CO2 29 12/25/17 03:38 POC ABG O2 Sat 95 12/25/17 03:38 ABG O2 Saturation 97.2 % (95.0-99.0) 12/29/17 05:50 PT/INR, D-dimer PT 14.9 Sec. (12.2-14.9) 12/15/17 04:05 INR 1.11 (0.87-1.13) 12/15/17 04:05 Abnormal lab findings: Abnormal Labs 12/12/17 12/12/17 12/12/17 18:57 19:02 19:02 WBC RBC Hgb Hct MCV 96 H MCH 34 H MCHC 35 H RDW Plt Count 46 L Lymph % (Auto) Eos # Seg Neutrophils % Seg Neuts % (Manual) 77.0 H Lymphocytes % (Manual) 13.0 L Monocytes % (Manual) Nucleated RBC % Seg Neutrophils # Seg Neutrophils # Man Lymphocytes # (Manual) 0.9 L Monocytes # (Manual) Eosinophils # (Manual) APTT POC ABG pH ABG pH POC ABG pCO2 POC ABG pO2 ABG pO2 ABG HCO3 ABG O2 Saturation ABG Base Excess ABG Hemoglobin VBG pH Oxyhemoglobin Sodium Potassium Chloride Carbon Dioxide BUN Creatinine Glucose POC Glucose 321 H Lactic Acid 4.00 H* Calcium Phosphorus Total Bilirubin AST ALT C-Reactive Protein Total Protein Albumin Triglycerides Amylase Lipase Urine WBC (Auto) Vancomycin Trough 12/12/17 12/12/17 12/12/17 19:02 19:18 20:55 WBC RBC Hgb Hct MCV MCH MCHC RDW Plt Count Lymph % (Auto) Eos # Seg Neutrophils % Seg Neuts % (Manual) Lymphocytes % (Manual) Monocytes % (Manual) Nucleated RBC % Seg Neutrophils # Seg Neutrophils # Man Lymphocytes # (Manual) Monocytes # (Manual) Eosinophils # (Manual) APTT POC ABG pH ABG pH POC ABG pCO2 POC ABG pO2 ABG pO2 ABG HCO3 ABG O2 Saturation ABG Base Excess ABG Hemoglobin VBG pH 7.472 H Oxyhemoglobin Sodium 124 L Potassium Chloride 80.0 L Carbon Dioxide 20 L BUN Creatinine Glucose 382 H POC Glucose 283 H Lactic Acid Calcium 8.1 L Phosphorus Total Bilirubin 4.60 H AST 93 H ALT 112 H C-Reactive Protein Total Protein Albumin 2.5 L Triglycerides Amylase Lipase Urine WBC (Auto) Vancomycin Trough 12/12/17 12/13/17 12/13/17 21:41 00:45 01:29 WBC RBC Hgb Hct MCV MCH MCHC RDW Plt Count Lymph % (Auto) Eos # Seg Neutrophils % Seg Neuts % (Manual) Lymphocytes % (Manual) Monocytes % (Manual) Nucleated RBC % Seg Neutrophils # Seg Neutrophils # Man Lymphocytes # (Manual) Monocytes # (Manual) Eosinophils # (Manual) APTT POC ABG pH ABG pH POC ABG pCO2 POC ABG pO2 ABG pO2 ABG HCO3 ABG O2 Saturation ABG Base Excess ABG Hemoglobin VBG pH Oxyhemoglobin Sodium Potassium Chloride Carbon Dioxide BUN Creatinine Glucose POC Glucose Lactic Acid 4.20 H* 2.70 H* 3.30 H* Calcium Phosphorus Total Bilirubin AST ALT C-Reactive Protein Total Protein Albumin Triglycerides Amylase Lipase Urine WBC (Auto) Vancomycin Trough 12/13/17 12/13/17 12/13/17 02:19 03:44 05:58 WBC RBC Hgb Hct MCV 97 H MCH 34 H MCHC 35 H RDW Plt Count 41 L Lymph % (Auto) Eos # Seg Neutrophils % Seg Neuts % (Manual) Lymphocytes % (Manual) 8.0 L Monocytes % (Manual) 8.0 H Nucleated RBC % Seg Neutrophils # Seg Neutrophils # Man Lymphocytes # (Manual) 0.6 L Monocytes # (Manual) Eosinophils # (Manual) APTT POC ABG pH 7.334 L ABG pH POC ABG pCO2 POC ABG pO2 43 L ABG pO2 ABG HCO3 ABG O2 Saturation ABG Base Excess ABG Hemoglobin VBG pH Oxyhemoglobin Sodium Potassium Chloride Carbon Dioxide BUN Creatinine Glucose POC Glucose Lactic Acid 2.60 H* Calcium Phosphorus Total Bilirubin AST ALT C-Reactive Protein Total Protein Albumin Triglycerides Amylase Lipase Urine WBC (Auto) Vancomycin Trough 12/13/17 12/13/17 12/13/17 05:58 05:58 05:58 WBC RBC Hgb Hct MCV MCH MCHC RDW Plt Count Lymph % (Auto) Eos # Seg Neutrophils % Seg Neuts % (Manual) Lymphocytes % (Manual) Monocytes % (Manual) Nucleated RBC % Seg Neutrophils # Seg Neutrophils # Man Lymphocytes # (Manual) Monocytes # (Manual) Eosinophils # (Manual) APTT POC ABG pH ABG pH POC ABG pCO2 POC ABG pO2 ABG pO2 ABG HCO3 ABG O2 Saturation ABG Base Excess ABG Hemoglobin VBG pH Oxyhemoglobin Sodium 132 L D Potassium Chloride 90.0 L Carbon Dioxide 20 L BUN Creatinine Glucose 346 H POC Glucose 298 H Lactic Acid 4.50 H* Calcium 8.2 L Phosphorus Total Bilirubin AST ALT C-Reactive Protein Total Protein Albumin Triglycerides Amylase Lipase Urine WBC (Auto) Vancomycin Trough 12/13/17 12/13/17 12/13/17 06:27 09:42 11:47 WBC RBC Hgb Hct MCV MCH MCHC RDW Plt Count Lymph % (Auto) Eos # Seg Neutrophils % Seg Neuts % (Manual) Lymphocytes % (Manual) Monocytes % (Manual) Nucleated RBC % Seg Neutrophils # Seg Neutrophils # Man Lymphocytes # (Manual) Monocytes # (Manual) Eosinophils # (Manual) APTT POC ABG pH 7.267 L 7.298 L ABG pH POC ABG pCO2 50.4 H 51.3 H POC ABG pO2 47 L 43 L ABG pO2 ABG HCO3 ABG O2 Saturation ABG Base Excess ABG Hemoglobin VBG pH Oxyhemoglobin Sodium Potassium Chloride Carbon Dioxide BUN Creatinine Glucose POC Glucose 376 H Lactic Acid Calcium Phosphorus Total Bilirubin AST ALT C-Reactive Protein Total Protein Albumin Triglycerides Amylase Lipase Urine WBC (Auto) Vancomycin Trough 12/13/17 12/13/17 12/13/17 12:03 13:47 13:47 WBC RBC Hgb Hct MCV MCH MCHC RDW Plt Count Lymph % (Auto) Eos # Seg Neutrophils % Seg Neuts % (Manual) Lymphocytes % (Manual) Monocytes % (Manual) Nucleated RBC % Seg Neutrophils # Seg Neutrophils # Man Lymphocytes # (Manual) Monocytes # (Manual) Eosinophils # (Manual) APTT POC ABG pH 7.264 L ABG pH POC ABG pCO2 54.9 H POC ABG pO2 55 L ABG pO2 ABG HCO3 ABG O2 Saturation ABG Base Excess ABG Hemoglobin VBG pH Oxyhemoglobin Sodium Potassium Chloride Carbon Dioxide BUN Creatinine Glucose POC Glucose Lactic Acid 2.80 H* Calcium Phosphorus Total Bilirubin AST ALT C-Reactive Protein Total Protein Albumin Triglycerides Amylase 20 L Lipase 9 L Urine WBC (Auto) Vancomycin Trough 12/13/17 12/13/17 12/13/17 15:36 17:39 21:47 WBC RBC Hgb Hct MCV MCH MCHC RDW Plt Count Lymph % (Auto) Eos # Seg Neutrophils % Seg Neuts % (Manual) Lymphocytes % (Manual) Monocytes % (Manual) Nucleated RBC % Seg Neutrophils # Seg Neutrophils # Man Lymphocytes # (Manual) Monocytes # (Manual) Eosinophils # (Manual) APTT POC ABG pH 7.229 L 7.225 L ABG pH POC ABG pCO2 60.9 H 66.3 H POC ABG pO2 42 L 41 L ABG pO2 ABG HCO3 ABG O2 Saturation ABG Base Excess ABG Hemoglobin VBG pH Oxyhemoglobin Sodium Potassium Chloride Carbon Dioxide BUN Creatinine Glucose POC Glucose 289 H Lactic Acid Calcium Phosphorus Total Bilirubin AST ALT C-Reactive Protein Total Protein Albumin Triglycerides Amylase Lipase Urine WBC (Auto) Vancomycin Trough 12/13/17 12/14/17 12/14/17 22:19 02:03 05:16 WBC RBC Hgb Hct MCV MCH MCHC RDW Plt Count Lymph % (Auto) Eos # Seg Neutrophils % Seg Neuts % (Manual) Lymphocytes % (Manual) Monocytes % (Manual) Nucleated RBC % Seg Neutrophils # Seg Neutrophils # Man Lymphocytes # (Manual) Monocytes # (Manual) Eosinophils # (Manual) APTT POC ABG pH 7.247 L ABG pH POC ABG pCO2 61.2 H POC ABG pO2 53 L ABG pO2 ABG HCO3 ABG O2 Saturation ABG Base Excess ABG Hemoglobin VBG pH Oxyhemoglobin Sodium Potassium Chloride Carbon Dioxide BUN Creatinine Glucose POC Glucose 274 H 295 H Lactic Acid Calcium Phosphorus Total Bilirubin AST ALT C-Reactive Protein Total Protein Albumin Triglycerides Amylase Lipase Urine WBC (Auto) Vancomycin Trough 12/14/17 12/14/17 12/14/17 05:32 12:04 16:22 WBC RBC Hgb Hct MCV MCH MCHC RDW Plt Count Lymph % (Auto) Eos # Seg Neutrophils % Seg Neuts % (Manual) Lymphocytes % (Manual) Monocytes % (Manual) Nucleated RBC % Seg Neutrophils # Seg Neutrophils # Man Lymphocytes # (Manual) Monocytes # (Manual) Eosinophils # (Manual) APTT POC ABG pH ABG pH POC ABG pCO2 POC ABG pO2 ABG pO2 ABG HCO3 ABG O2 Saturation ABG Base Excess ABG Hemoglobin VBG pH Oxyhemoglobin Sodium Potassium Chloride Carbon Dioxide BUN Creatinine Glucose POC Glucose 230 H 241 H 231 H Lactic Acid Calcium Phosphorus Total Bilirubin AST ALT C-Reactive Protein Total Protein Albumin Triglycerides Amylase Lipase Urine WBC (Auto) Vancomycin Trough 12/14/17 12/15/17 12/15/17 21:29 02:29 03:25 WBC RBC Hgb Hct MCV MCH MCHC RDW Plt Count Lymph % (Auto) Eos # Seg Neutrophils % Seg Neuts % (Manual) Lymphocytes % (Manual) Monocytes % (Manual) Nucleated RBC % Seg Neutrophils # Seg Neutrophils # Man Lymphocytes # (Manual) Monocytes # (Manual) Eosinophils # (Manual) APTT POC ABG pH 7.330 L ABG pH POC ABG pCO2 55.3 H POC ABG pO2 59 L ABG pO2 ABG HCO3 ABG O2 Saturation ABG Base Excess ABG Hemoglobin VBG pH Oxyhemoglobin Sodium Potassium Chloride Carbon Dioxide BUN Creatinine Glucose POC Glucose 258 H 246 H Lactic Acid Calcium Phosphorus Total Bilirubin AST ALT C-Reactive Protein Total Protein Albumin Triglycerides Amylase Lipase Urine WBC (Auto) Vancomycin Trough 12/15/17 12/15/17 12/15/17 04:05 04:05 04:05 WBC 15.0 H RBC 3.40 L Hgb 11.3 L D Hct 33.8 L D MCV 100 H MCH 33 H MCHC RDW Plt Count 48 L Lymph % (Auto) Eos # Seg Neutrophils % Seg Neuts % (Manual) Lymphocytes % (Manual) 3.0 L Monocytes % (Manual) Nucleated RBC % 2.0 H Seg Neutrophils # Seg Neutrophils # Man Lymphocytes # (Manual) 0.5 L Monocytes # (Manual) 0.9 H Eosinophils # (Manual) APTT 20.9 L POC ABG pH ABG pH POC ABG pCO2 POC ABG pO2 ABG pO2 ABG HCO3 ABG O2 Saturation ABG Base Excess ABG Hemoglobin VBG pH Oxyhemoglobin Sodium Potassium Chloride Carbon Dioxide BUN 27 H Creatinine Glucose 258 H POC Glucose Lactic Acid Calcium 8.1 L Phosphorus Total Bilirubin AST ALT C-Reactive Protein Total Protein Albumin Triglycerides Amylase Lipase Urine WBC (Auto) Vancomycin Trough 12/15/17 12/15/17 12/15/17 05:32 11:17 14:59 WBC RBC Hgb Hct MCV MCH MCHC RDW Plt Count Lymph % (Auto) Eos # Seg Neutrophils % Seg Neuts % (Manual) Lymphocytes % (Manual) Monocytes % (Manual) Nucleated RBC % Seg Neutrophils # Seg Neutrophils # Man Lymphocytes # (Manual) Monocytes # (Manual) Eosinophils # (Manual) APTT POC ABG pH ABG pH POC ABG pCO2 POC ABG pO2 ABG pO2 ABG HCO3 ABG O2 Saturation ABG Base Excess ABG Hemoglobin VBG pH Oxyhemoglobin Sodium Potassium Chloride Carbon Dioxide BUN Creatinine Glucose POC Glucose 247 H 268 H 233 H Lactic Acid Calcium Phosphorus Total Bilirubin AST ALT C-Reactive Protein Total Protein Albumin Triglycerides Amylase Lipase Urine WBC (Auto) Vancomycin Trough 12/15/17 12/15/17 12/15/17 17:00 18:59 21:37 WBC RBC Hgb Hct MCV MCH MCHC RDW Plt Count Lymph % (Auto) Eos # Seg Neutrophils % Seg Neuts % (Manual) Lymphocytes % (Manual) Monocytes % (Manual) Nucleated RBC % Seg Neutrophils # Seg Neutrophils # Man Lymphocytes # (Manual) Monocytes # (Manual) Eosinophils # (Manual) APTT POC ABG pH ABG pH POC ABG pCO2 POC ABG pO2 ABG pO2 ABG HCO3 ABG O2 Saturation ABG Base Excess ABG Hemoglobin VBG pH Oxyhemoglobin Sodium Potassium Chloride Carbon Dioxide BUN Creatinine Glucose POC Glucose 195 H 208 H Lactic Acid Calcium Phosphorus Total Bilirubin AST ALT C-Reactive Protein Total Protein Albumin Triglycerides Amylase Lipase Urine WBC (Auto) 38.0 H Vancomycin Trough 12/16/17 12/16/17 12/16/17 03:17 03:33 04:18 WBC 16.4 H RBC 3.50 L Hgb 11.3 L Hct 35.4 L MCV 101 H MCH MCHC RDW Plt Count 54 L Lymph % (Auto) Eos # Seg Neutrophils % Seg Neuts % (Manual) Lymphocytes % (Manual) Monocytes % (Manual) Nucleated RBC % Seg Neutrophils # Seg Neutrophils # Man Lymphocytes # (Manual) Monocytes # (Manual) Eosinophils # (Manual) APTT POC ABG pH ABG pH POC ABG pCO2 47.7 H POC ABG pO2 ABG pO2 ABG HCO3 ABG O2 Saturation ABG Base Excess ABG Hemoglobin VBG pH Oxyhemoglobin Sodium Potassium Chloride Carbon Dioxide BUN Creatinine Glucose POC Glucose 227 H Lactic Acid Calcium Phosphorus Total Bilirubin AST ALT C-Reactive Protein Total Protein Albumin Triglycerides Amylase Lipase Urine WBC (Auto) Vancomycin Trough 12/16/17 12/16/17 12/16/17 04:18 05:08 10:01 WBC RBC Hgb Hct MCV MCH MCHC RDW Plt Count Lymph % (Auto) Eos # Seg Neutrophils % Seg Neuts % (Manual) Lymphocytes % (Manual) Monocytes % (Manual) Nucleated RBC % Seg Neutrophils # Seg Neutrophils # Man Lymphocytes # (Manual) Monocytes # (Manual) Eosinophils # (Manual) APTT POC ABG pH ABG pH POC ABG pCO2 POC ABG pO2 ABG pO2 ABG HCO3 ABG O2 Saturation ABG Base Excess ABG Hemoglobin VBG pH Oxyhemoglobin Sodium 147 H Potassium Chloride 107.4 H Carbon Dioxide BUN 28 H Creatinine Glucose 240 H POC Glucose 227 H 190 H Lactic Acid Calcium 8.3 L Phosphorus Total Bilirubin AST ALT C-Reactive Protein Total Protein Albumin Triglycerides Amylase Lipase Urine WBC (Auto) Vancomycin Trough 12/16/17 12/16/17 12/16/17 14:15 17:51 21:14 WBC RBC Hgb Hct MCV MCH MCHC RDW Plt Count Lymph % (Auto) Eos # Seg Neutrophils % Seg Neuts % (Manual) Lymphocytes % (Manual) Monocytes % (Manual) Nucleated RBC % Seg Neutrophils # Seg Neutrophils # Man Lymphocytes # (Manual) Monocytes # (Manual) Eosinophils # (Manual) APTT POC ABG pH ABG pH POC ABG pCO2 POC ABG pO2 ABG pO2 ABG HCO3 ABG O2 Saturation ABG Base Excess ABG Hemoglobin VBG pH Oxyhemoglobin Sodium Potassium Chloride Carbon Dioxide BUN Creatinine Glucose POC Glucose 279 H 272 H 260 H Lactic Acid Calcium Phosphorus Total Bilirubin AST ALT C-Reactive Protein Total Protein Albumin Triglycerides Amylase Lipase Urine WBC (Auto) Vancomycin Trough 12/17/17 12/17/17 12/17/17 02:41 04:28 04:28 WBC 19.1 H RBC 3.50 L Hgb 11.4 L Hct 35.3 L MCV 101 H MCH 33 H MCHC RDW Plt Count 65 L Lymph % (Auto) Eos # Seg Neutrophils % Seg Neuts % (Manual) Lymphocytes % (Manual) Monocytes % (Manual) Nucleated RBC % Seg Neutrophils # Seg Neutrophils # Man Lymphocytes # (Manual) Monocytes # (Manual) Eosinophils # (Manual) APTT POC ABG pH ABG pH POC ABG pCO2 POC ABG pO2 ABG pO2 ABG HCO3 ABG O2 Saturation ABG Base Excess ABG Hemoglobin VBG pH Oxyhemoglobin Sodium 153 H Potassium Chloride 111.2 H Carbon Dioxide 31 H BUN 28 H Creatinine Glucose 248 H POC Glucose 300 H Lactic Acid Calcium Phosphorus Total Bilirubin AST ALT C-Reactive Protein Total Protein Albumin Triglycerides Amylase Lipase Urine WBC (Auto) Vancomycin Trough 12/17/17 12/17/17 12/17/17 05:15 05:38 10:16 WBC RBC Hgb Hct MCV MCH MCHC RDW Plt Count Lymph % (Auto) Eos # Seg Neutrophils % Seg Neuts % (Manual) Lymphocytes % (Manual) Monocytes % (Manual) Nucleated RBC % Seg Neutrophils # Seg Neutrophils # Man Lymphocytes # (Manual) Monocytes # (Manual) Eosinophils # (Manual) APTT POC ABG pH ABG pH POC ABG pCO2 50.3 H POC ABG pO2 120 H ABG pO2 ABG HCO3 ABG O2 Saturation ABG Base Excess ABG Hemoglobin VBG pH Oxyhemoglobin Sodium Potassium Chloride Carbon Dioxide BUN Creatinine Glucose POC Glucose 231 H 196 H Lactic Acid Calcium Phosphorus Total Bilirubin AST ALT C-Reactive Protein Total Protein Albumin Triglycerides Amylase Lipase Urine WBC (Auto) Vancomycin Trough 12/17/17 12/17/17 12/17/17 14:22 18:14 21:35 WBC RBC Hgb Hct MCV MCH MCHC RDW Plt Count Lymph % (Auto) Eos # Seg Neutrophils % Seg Neuts % (Manual) Lymphocytes % (Manual) Monocytes % (Manual) Nucleated RBC % Seg Neutrophils # Seg Neutrophils # Man Lymphocytes # (Manual) Monocytes # (Manual) Eosinophils # (Manual) APTT POC ABG pH ABG pH POC ABG pCO2 POC ABG pO2 ABG pO2 ABG HCO3 ABG O2 Saturation ABG Base Excess ABG Hemoglobin VBG pH Oxyhemoglobin Sodium Potassium Chloride Carbon Dioxide BUN Creatinine Glucose POC Glucose 234 H 215 H 159 H Lactic Acid Calcium Phosphorus Total Bilirubin AST ALT C-Reactive Protein Total Protein Albumin Triglycerides Amylase Lipase Urine WBC (Auto) Vancomycin Trough 12/18/17 12/18/17 12/18/17 00:53 02:58 06:03 WBC RBC Hgb Hct MCV MCH MCHC RDW Plt Count Lymph % (Auto) Eos # Seg Neutrophils % Seg Neuts % (Manual) Lymphocytes % (Manual) Monocytes % (Manual) Nucleated RBC % Seg Neutrophils # Seg Neutrophils # Man Lymphocytes # (Manual) Monocytes # (Manual) Eosinophils # (Manual) APTT POC ABG pH ABG pH POC ABG pCO2 56.4 H POC ABG pO2 46 L ABG pO2 ABG HCO3 ABG O2 Saturation ABG Base Excess ABG Hemoglobin VBG pH Oxyhemoglobin Sodium Potassium Chloride Carbon Dioxide BUN Creatinine Glucose POC Glucose 176 H 143 H Lactic Acid Calcium Phosphorus Total Bilirubin AST ALT C-Reactive Protein Total Protein Albumin Triglycerides Amylase Lipase Urine WBC (Auto) Vancomycin Trough 12/18/17 12/18/17 12/18/17 07:59 09:20 09:20 WBC 27.4 H RBC 3.57 L Hgb 11.4 L Hct MCV 101 H MCH MCHC RDW Plt Count 64 L Lymph % (Auto) Eos # Seg Neutrophils % Seg Neuts % (Manual) Lymphocytes % (Manual) Monocytes % (Manual) Nucleated RBC % Seg Neutrophils # Seg Neutrophils # Man Lymphocytes # (Manual) Monocytes # (Manual) Eosinophils # (Manual) APTT POC ABG pH ABG pH POC ABG pCO2 POC ABG pO2 ABG pO2 ABG HCO3 ABG O2 Saturation ABG Base Excess ABG Hemoglobin VBG pH Oxyhemoglobin Sodium 152 H Potassium Chloride 107.9 H Carbon Dioxide 34 H BUN 23 H Creatinine 0.7 L Glucose 181 H POC Glucose 197 H Lactic Acid Calcium Phosphorus Total Bilirubin AST ALT C-Reactive Protein Total Protein Albumin Triglycerides Amylase Lipase Urine WBC (Auto) Vancomycin Trough 12/18/17 12/18/17 12/18/17 10:22 15:03 18:15 WBC RBC Hgb Hct MCV MCH MCHC RDW Plt Count Lymph % (Auto) Eos # Seg Neutrophils % Seg Neuts % (Manual) Lymphocytes % (Manual) Monocytes % (Manual) Nucleated RBC % Seg Neutrophils # Seg Neutrophils # Man Lymphocytes # (Manual) Monocytes # (Manual) Eosinophils # (Manual) APTT POC ABG pH ABG pH POC ABG pCO2 POC ABG pO2 ABG pO2 ABG HCO3 ABG O2 Saturation ABG Base Excess ABG Hemoglobin VBG pH Oxyhemoglobin Sodium Potassium Chloride Carbon Dioxide BUN Creatinine Glucose POC Glucose 195 H 225 H 238 H Lactic Acid Calcium Phosphorus Total Bilirubin AST ALT C-Reactive Protein Total Protein Albumin Triglycerides Amylase Lipase Urine WBC (Auto) Vancomycin Trough 12/18/17 12/18/17 12/19/17 18:29 21:53 00:18 WBC RBC Hgb Hct MCV MCH MCHC RDW Plt Count Lymph % (Auto) Eos # Seg Neutrophils % Seg Neuts % (Manual) Lymphocytes % (Manual) Monocytes % (Manual) Nucleated RBC % Seg Neutrophils # Seg Neutrophils # Man Lymphocytes # (Manual) Monocytes # (Manual) Eosinophils # (Manual) APTT POC ABG pH 7.476 H ABG pH POC ABG pCO2 50.4 H POC ABG pO2 158 H ABG pO2 ABG HCO3 ABG O2 Saturation ABG Base Excess ABG Hemoglobin VBG pH Oxyhemoglobin Sodium Potassium Chloride Carbon Dioxide BUN Creatinine Glucose POC Glucose 231 H 263 H Lactic Acid Calcium Phosphorus Total Bilirubin AST ALT C-Reactive Protein Total Protein Albumin Triglycerides Amylase Lipase Urine WBC (Auto) Vancomycin Trough 12/19/17 12/19/17 12/19/17 02:09 04:07 04:07 WBC 25.9 H RBC 3.25 L Hgb 10.6 L Hct 32.8 L MCV 101 H MCH 33 H MCHC RDW Plt Count 67 L Lymph % (Auto) Eos # Seg Neutrophils % Seg Neuts % (Manual) Lymphocytes % (Manual) 4.0 L Monocytes % (Manual) Nucleated RBC % Seg Neutrophils # Seg Neutrophils # Man 14.8 H Lymphocytes # (Manual) 1.0 L Monocytes # (Manual) Eosinophils # (Manual) APTT POC ABG pH ABG pH POC ABG pCO2 POC ABG pO2 ABG pO2 ABG HCO3 ABG O2 Saturation ABG Base Excess ABG Hemoglobin VBG pH Oxyhemoglobin Sodium 148 H Potassium Chloride Carbon Dioxide BUN 31 H Creatinine Glucose 314 H POC Glucose 300 H Lactic Acid Calcium 8.1 L Phosphorus Total Bilirubin AST ALT C-Reactive Protein Total Protein Albumin Triglycerides Amylase Lipase Urine WBC (Auto) Vancomycin Trough 12/19/17 12/19/17 12/19/17 05:15 05:41 07:57 WBC RBC Hgb Hct MCV MCH MCHC RDW Plt Count Lymph % (Auto) Eos # Seg Neutrophils % Seg Neuts % (Manual) Lymphocytes % (Manual) Monocytes % (Manual) Nucleated RBC % Seg Neutrophils # Seg Neutrophils # Man Lymphocytes # (Manual) Monocytes # (Manual) Eosinophils # (Manual) APTT POC ABG pH 7.507 H ABG pH POC ABG pCO2 POC ABG pO2 ABG pO2 ABG HCO3 ABG O2 Saturation ABG Base Excess ABG Hemoglobin VBG pH Oxyhemoglobin Sodium Potassium Chloride Carbon Dioxide BUN Creatinine Glucose POC Glucose 331 H 307 H Lactic Acid Calcium Phosphorus Total Bilirubin AST ALT C-Reactive Protein Total Protein Albumin Triglycerides Amylase Lipase Urine WBC (Auto) Vancomycin Trough 12/19/17 12/19/17 12/19/17 10:21 14:48 17:59 WBC RBC Hgb Hct MCV MCH MCHC RDW Plt Count Lymph % (Auto) Eos # Seg Neutrophils % Seg Neuts % (Manual) Lymphocytes % (Manual) Monocytes % (Manual) Nucleated RBC % Seg Neutrophils # Seg Neutrophils # Man Lymphocytes # (Manual) Monocytes # (Manual) Eosinophils # (Manual) APTT POC ABG pH ABG pH POC ABG pCO2 POC ABG pO2 ABG pO2 ABG HCO3 ABG O2 Saturation ABG Base Excess ABG Hemoglobin VBG pH Oxyhemoglobin Sodium Potassium Chloride Carbon Dioxide BUN Creatinine Glucose POC Glucose 358 H 327 H 355 H Lactic Acid Calcium Phosphorus Total Bilirubin AST ALT C-Reactive Protein Total Protein Albumin Triglycerides Amylase Lipase Urine WBC (Auto) Vancomycin Trough 12/19/17 12/20/17 12/20/17 21:38 02:21 03:42 WBC RBC Hgb Hct MCV MCH MCHC RDW Plt Count Lymph % (Auto) Eos # Seg Neutrophils % Seg Neuts % (Manual) Lymphocytes % (Manual) Monocytes % (Manual) Nucleated RBC % Seg Neutrophils # Seg Neutrophils # Man Lymphocytes # (Manual) Monocytes # (Manual) Eosinophils # (Manual) APTT POC ABG pH 7.494 H ABG pH POC ABG pCO2 POC ABG pO2 ABG pO2 ABG HCO3 ABG O2 Saturation ABG Base Excess ABG Hemoglobin VBG pH Oxyhemoglobin Sodium Potassium Chloride Carbon Dioxide BUN Creatinine Glucose POC Glucose 329 H 354 H Lactic Acid Calcium Phosphorus Total Bilirubin AST ALT C-Reactive Protein Total Protein Albumin Triglycerides Amylase Lipase Urine WBC (Auto) Vancomycin Trough 12/20/17 12/20/17 12/20/17 04:08 04:08 04:08 WBC 22.7 H RBC 3.26 L Hgb 10.6 L Hct 32.9 L MCV 101 H MCH 33 H MCHC RDW Plt Count 78 L Lymph % (Auto) Eos # Seg Neutrophils % Seg Neuts % (Manual) 80.0 H Lymphocytes % (Manual) 6.0 L Monocytes % (Manual) Nucleated RBC % Seg Neutrophils # Seg Neutrophils # Man 18.2 H Lymphocytes # (Manual) Monocytes # (Manual) Eosinophils # (Manual) APTT POC ABG pH ABG pH POC ABG pCO2 POC ABG pO2 ABG pO2 ABG HCO3 ABG O2 Saturation ABG Base Excess ABG Hemoglobin VBG pH Oxyhemoglobin Sodium Potassium Chloride Carbon Dioxide 31 H BUN 30 H Creatinine 0.6 L Glucose 365 H POC Glucose Lactic Acid Calcium Phosphorus Total Bilirubin AST ALT C-Reactive Protein Total Protein Albumin Triglycerides 981 H Amylase Lipase Urine WBC (Auto) Vancomycin Trough 12/20/17 12/20/17 12/20/17 05:15 10:47 13:40 WBC RBC Hgb Hct MCV MCH MCHC RDW Plt Count Lymph % (Auto) Eos # Seg Neutrophils % Seg Neuts % (Manual) Lymphocytes % (Manual) Monocytes % (Manual) Nucleated RBC % Seg Neutrophils # Seg Neutrophils # Man Lymphocytes # (Manual) Monocytes # (Manual) Eosinophils # (Manual) APTT POC ABG pH ABG pH POC ABG pCO2 POC ABG pO2 ABG pO2 ABG HCO3 ABG O2 Saturation ABG Base Excess ABG Hemoglobin VBG pH Oxyhemoglobin Sodium Potassium Chloride Carbon Dioxide BUN Creatinine Glucose POC Glucose 342 H 330 H Lactic Acid Calcium Phosphorus Total Bilirubin AST ALT C-Reactive Protein 7.10 H Total Protein Albumin Triglycerides Amylase Lipase Urine WBC (Auto) Vancomycin Trough 12/20/17 12/20/17 12/20/17 13:40 14:52 16:55 WBC RBC Hgb Hct MCV MCH MCHC RDW Plt Count Lymph % (Auto) Eos # Seg Neutrophils % Seg Neuts % (Manual) Lymphocytes % (Manual) Monocytes % (Manual) Nucleated RBC % Seg Neutrophils # Seg Neutrophils # Man Lymphocytes # (Manual) Monocytes # (Manual) Eosinophils # (Manual) APTT POC ABG pH 7.484 H ABG pH POC ABG pCO2 POC ABG pO2 ABG pO2 ABG HCO3 ABG O2 Saturation ABG Base Excess ABG Hemoglobin VBG pH Oxyhemoglobin Sodium Potassium Chloride Carbon Dioxide BUN Creatinine Glucose POC Glucose 293 H Lactic Acid Calcium Phosphorus Total Bilirubin AST ALT C-Reactive Protein Total Protein Albumin Triglycerides 1042 H Amylase Lipase Urine WBC (Auto) Vancomycin Trough 12/20/17 12/20/17 12/21/17 18:00 21:58 02:05 WBC RBC Hgb Hct MCV MCH MCHC RDW Plt Count Lymph % (Auto) Eos # Seg Neutrophils % Seg Neuts % (Manual) Lymphocytes % (Manual) Monocytes % (Manual) Nucleated RBC % Seg Neutrophils # Seg Neutrophils # Man Lymphocytes # (Manual) Monocytes # (Manual) Eosinophils # (Manual) APTT POC ABG pH ABG pH POC ABG pCO2 POC ABG pO2 ABG pO2 ABG HCO3 ABG O2 Saturation ABG Base Excess ABG Hemoglobin VBG pH Oxyhemoglobin Sodium Potassium Chloride Carbon Dioxide BUN Creatinine Glucose POC Glucose 268 H 272 H 229 H Lactic Acid Calcium Phosphorus Total Bilirubin AST ALT C-Reactive Protein Total Protein Albumin Triglycerides Amylase Lipase Urine WBC (Auto) Vancomycin Trough 12/21/17 12/21/17 12/21/17 03:59 06:23 08:57 WBC RBC Hgb Hct MCV MCH MCHC RDW Plt Count Lymph % (Auto) Eos # Seg Neutrophils % Seg Neuts % (Manual) Lymphocytes % (Manual) Monocytes % (Manual) Nucleated RBC % Seg Neutrophils # Seg Neutrophils # Man Lymphocytes # (Manual) Monocytes # (Manual) Eosinophils # (Manual) APTT POC ABG pH 7.474 H ABG pH POC ABG pCO2 POC ABG pO2 71 L ABG pO2 ABG HCO3 ABG O2 Saturation ABG Base Excess ABG Hemoglobin VBG pH Oxyhemoglobin Sodium Potassium Chloride Carbon Dioxide BUN Creatinine Glucose POC Glucose 182 H 217 H Lactic Acid Calcium Phosphorus Total Bilirubin AST ALT C-Reactive Protein Total Protein Albumin Triglycerides Amylase Lipase Urine WBC (Auto) Vancomycin Trough 12/21/17 12/21/17 12/21/17 13:59 18:00 21:20 WBC RBC Hgb Hct MCV MCH MCHC RDW Plt Count Lymph % (Auto) Eos # Seg Neutrophils % Seg Neuts % (Manual) Lymphocytes % (Manual) Monocytes % (Manual) Nucleated RBC % Seg Neutrophils # Seg Neutrophils # Man Lymphocytes # (Manual) Monocytes # (Manual) Eosinophils # (Manual) APTT POC ABG pH ABG pH POC ABG pCO2 POC ABG pO2 ABG pO2 ABG HCO3 ABG O2 Saturation ABG Base Excess ABG Hemoglobin VBG pH Oxyhemoglobin Sodium Potassium Chloride Carbon Dioxide BUN Creatinine Glucose POC Glucose 185 H 176 H 187 H Lactic Acid Calcium Phosphorus Total Bilirubin AST ALT C-Reactive Protein Total Protein Albumin Triglycerides Amylase Lipase Urine WBC (Auto) Vancomycin Trough 12/21/17 12/22/17 12/22/17 23:48 04:39 05:30 WBC RBC Hgb Hct MCV MCH MCHC RDW Plt Count Lymph % (Auto) Eos # Seg Neutrophils % Seg Neuts % (Manual) Lymphocytes % (Manual) Monocytes % (Manual) Nucleated RBC % Seg Neutrophils # Seg Neutrophils # Man Lymphocytes # (Manual) Monocytes # (Manual) Eosinophils # (Manual) APTT POC ABG pH 7.528 H ABG pH POC ABG pCO2 POC ABG pO2 63 L ABG pO2 ABG HCO3 ABG O2 Saturation ABG Base Excess ABG Hemoglobin VBG pH Oxyhemoglobin Sodium Potassium Chloride Carbon Dioxide BUN Creatinine Glucose POC Glucose 126 H 117 H Lactic Acid Calcium Phosphorus Total Bilirubin AST ALT C-Reactive Protein Total Protein Albumin Triglycerides Amylase Lipase Urine WBC (Auto) Vancomycin Trough 12/22/17 12/22/17 12/22/17 09:12 10:34 10:34 WBC 29.5 H RBC 3.44 L Hgb 11.2 L Hct 34.2 L MCV 99 H MCH 33 H MCHC RDW 13.1 L Plt Count 97 L Lymph % (Auto) Eos # Seg Neutrophils % Seg Neuts % (Manual) 88.0 H Lymphocytes % (Manual) 5.0 L Monocytes % (Manual) Nucleated RBC % Seg Neutrophils # Seg Neutrophils # Man 26.0 H Lymphocytes # (Manual) Monocytes # (Manual) Eosinophils # (Manual) APTT POC ABG pH ABG pH POC ABG pCO2 POC ABG pO2 ABG pO2 ABG HCO3 ABG O2 Saturation ABG Base Excess ABG Hemoglobin VBG pH Oxyhemoglobin Sodium 146 H Potassium 3.1 L Chloride Carbon Dioxide BUN 25 H Creatinine 0.7 L Glucose 146 H POC Glucose 168 H Lactic Acid Calcium 8.1 L Phosphorus Total Bilirubin AST ALT C-Reactive Protein Total Protein Albumin Triglycerides Amylase Lipase Urine WBC (Auto) Vancomycin Trough 12/22/17 12/22/17 12/22/17 14:51 17:21 21:43 WBC RBC Hgb Hct MCV MCH MCHC RDW Plt Count Lymph % (Auto) Eos # Seg Neutrophils % Seg Neuts % (Manual) Lymphocytes % (Manual) Monocytes % (Manual) Nucleated RBC % Seg Neutrophils # Seg Neutrophils # Man Lymphocytes # (Manual) Monocytes # (Manual) Eosinophils # (Manual) APTT POC ABG pH ABG pH POC ABG pCO2 POC ABG pO2 ABG pO2 ABG HCO3 ABG O2 Saturation ABG Base Excess ABG Hemoglobin VBG pH Oxyhemoglobin Sodium Potassium Chloride Carbon Dioxide BUN Creatinine Glucose POC Glucose 125 H 110 H 153 H Lactic Acid Calcium Phosphorus Total Bilirubin AST ALT C-Reactive Protein Total Protein Albumin Triglycerides Amylase Lipase Urine WBC (Auto) Vancomycin Trough 12/23/17 12/23/17 12/23/17 04:33 05:28 09:25 WBC 31.4 H RBC 3.05 L Hgb 9.8 L Hct 30.2 L MCV 99 H MCH MCHC RDW 12.9 L Plt Count 101 L Lymph % (Auto) Eos # Seg Neutrophils % Seg Neuts % (Manual) 97 H Lymphocytes % (Manual) 2 L Monocytes % (Manual) Nucleated RBC % Seg Neutrophils # Seg Neutrophils # Man 31.1 H Lymphocytes # (Manual) 0.5 L Monocytes # (Manual) Eosinophils # (Manual) APTT POC ABG pH 7.573 H ABG pH POC ABG pCO2 31.0 L POC ABG pO2 63 L ABG pO2 ABG HCO3 ABG O2 Saturation ABG Base Excess ABG Hemoglobin VBG pH Oxyhemoglobin Sodium Potassium Chloride Carbon Dioxide BUN Creatinine Glucose POC Glucose 124 H Lactic Acid Calcium Phosphorus Total Bilirubin AST ALT C-Reactive Protein Total Protein Albumin Triglycerides Amylase Lipase Urine WBC (Auto) Vancomycin Trough 12/23/17 12/23/17 12/23/17 09:25 10:08 14:20 WBC RBC Hgb Hct MCV MCH MCHC RDW Plt Count Lymph % (Auto) Eos # Seg Neutrophils % Seg Neuts % (Manual) Lymphocytes % (Manual) Monocytes % (Manual) Nucleated RBC % Seg Neutrophils # Seg Neutrophils # Man Lymphocytes # (Manual) Monocytes # (Manual) Eosinophils # (Manual) APTT POC ABG pH ABG pH POC ABG pCO2 POC ABG pO2 ABG pO2 ABG HCO3 ABG O2 Saturation ABG Base Excess ABG Hemoglobin VBG pH Oxyhemoglobin Sodium Potassium 3.1 L Chloride Carbon Dioxide BUN Creatinine 0.6 L Glucose 169 H POC Glucose 171 H 211 H Lactic Acid Calcium 7.9 L Phosphorus Total Bilirubin AST ALT C-Reactive Protein Total Protein Albumin Triglycerides Amylase Lipase Urine WBC (Auto) Vancomycin Trough 12/23/17 12/23/17 12/24/17 18:59 21:49 01:47 WBC RBC Hgb Hct MCV MCH MCHC RDW Plt Count Lymph % (Auto) Eos # Seg Neutrophils % Seg Neuts % (Manual) Lymphocytes % (Manual) Monocytes % (Manual) Nucleated RBC % Seg Neutrophils # Seg Neutrophils # Man Lymphocytes # (Manual) Monocytes # (Manual) Eosinophils # (Manual) APTT POC ABG pH ABG pH POC ABG pCO2 POC ABG pO2 ABG pO2 ABG HCO3 ABG O2 Saturation ABG Base Excess ABG Hemoglobin VBG pH Oxyhemoglobin Sodium Potassium Chloride Carbon Dioxide BUN Creatinine Glucose POC Glucose 175 H 146 H 143 H Lactic Acid Calcium Phosphorus Total Bilirubin AST ALT C-Reactive Protein Total Protein Albumin Triglycerides Amylase Lipase Urine WBC (Auto) Vancomycin Trough 12/24/17 12/24/17 12/24/17 05:40 10:12 13:12 WBC RBC Hgb Hct MCV MCH MCHC RDW Plt Count Lymph % (Auto) Eos # Seg Neutrophils % Seg Neuts % (Manual) Lymphocytes % (Manual) Monocytes % (Manual) Nucleated RBC % Seg Neutrophils # Seg Neutrophils # Man Lymphocytes # (Manual) Monocytes # (Manual) Eosinophils # (Manual) APTT POC ABG pH 7.558 H ABG pH POC ABG pCO2 27.6 L POC ABG pO2 71 L ABG pO2 ABG HCO3 ABG O2 Saturation ABG Base Excess ABG Hemoglobin VBG pH Oxyhemoglobin Sodium Potassium Chloride Carbon Dioxide BUN Creatinine Glucose POC Glucose 118 H 111 H Lactic Acid Calcium Phosphorus Total Bilirubin AST ALT C-Reactive Protein Total Protein Albumin Triglycerides Amylase Lipase Urine WBC (Auto) Vancomycin Trough 12/24/17 12/24/17 12/24/17 16:26 20:44 21:49 WBC RBC Hgb Hct MCV MCH MCHC RDW Plt Count Lymph % (Auto) Eos # Seg Neutrophils % Seg Neuts % (Manual) Lymphocytes % (Manual) Monocytes % (Manual) Nucleated RBC % Seg Neutrophils # Seg Neutrophils # Man Lymphocytes # (Manual) Monocytes # (Manual) Eosinophils # (Manual) APTT POC ABG pH ABG pH POC ABG pCO2 POC ABG pO2 ABG pO2 ABG HCO3 ABG O2 Saturation ABG Base Excess ABG Hemoglobin VBG pH Oxyhemoglobin Sodium Potassium Chloride Carbon Dioxide BUN Creatinine Glucose POC Glucose 113 H 124 H 115 H Lactic Acid Calcium Phosphorus Total Bilirubin AST ALT C-Reactive Protein Total Protein Albumin Triglycerides Amylase Lipase Urine WBC (Auto) Vancomycin Trough 12/24/17 12/25/17 12/25/17 Unknown 02:26 03:38 WBC RBC Hgb Hct MCV MCH MCHC RDW Plt Count Lymph % (Auto) Eos # Seg Neutrophils % Seg Neuts % (Manual) Lymphocytes % (Manual) Monocytes % (Manual) Nucleated RBC % Seg Neutrophils # Seg Neutrophils # Man Lymphocytes # (Manual) Monocytes # (Manual) Eosinophils # (Manual) APTT POC ABG pH 7.503 H ABG pH POC ABG pCO2 POC ABG pO2 66 L ABG pO2 ABG HCO3 ABG O2 Saturation ABG Base Excess ABG Hemoglobin VBG pH Oxyhemoglobin Sodium Potassium 3.0 L Chloride Carbon Dioxide BUN Creatinine 0.5 L Glucose 166 H POC Glucose 106 H Lactic Acid Calcium 7.8 L Phosphorus Total Bilirubin AST ALT C-Reactive Protein Total Protein Albumin Triglycerides Amylase Lipase Urine WBC (Auto) Vancomycin Trough 12/25/17 12/25/17 12/25/17 04:58 12:58 15:06 WBC RBC Hgb Hct MCV MCH MCHC RDW Plt Count Lymph % (Auto) Eos # Seg Neutrophils % Seg Neuts % (Manual) Lymphocytes % (Manual) Monocytes % (Manual) Nucleated RBC % Seg Neutrophils # Seg Neutrophils # Man Lymphocytes # (Manual) Monocytes # (Manual) Eosinophils # (Manual) APTT POC ABG pH ABG pH POC ABG pCO2 POC ABG pO2 ABG pO2 ABG HCO3 ABG O2 Saturation ABG Base Excess ABG Hemoglobin VBG pH Oxyhemoglobin Sodium Potassium Chloride Carbon Dioxide BUN Creatinine Glucose POC Glucose 113 H 118 H Lactic Acid Calcium Phosphorus Total Bilirubin AST ALT C-Reactive Protein Total Protein Albumin Triglycerides Amylase Lipase Urine WBC (Auto) Vancomycin Trough 22.5 H 03/28/18 03/28/18 03/28/18 17:59 21:33 Unknown WBC 20.5 H RBC 2.75 L Hgb 9.1 L Hct 27.1 L MCV 99 H MCH 33 H MCHC RDW Plt Count 126 L Lymph % (Auto) Eos # Seg Neutrophils % Seg Neuts % (Manual) 89.0 H Lymphocytes % (Manual) 6.0 L Monocytes % (Manual) Nucleated RBC % Seg Neutrophils # Seg Neutrophils # Man 18.2 H Lymphocytes # (Manual) Monocytes # (Manual) Eosinophils # (Manual) APTT POC ABG pH ABG pH POC ABG pCO2 POC ABG pO2 ABG pO2 ABG HCO3 ABG O2 Saturation ABG Base Excess ABG Hemoglobin VBG pH Oxyhemoglobin Sodium Potassium Chloride Carbon Dioxide BUN Creatinine Glucose POC Glucose 145 H 167 H Lactic Acid Calcium Phosphorus Total Bilirubin AST ALT C-Reactive Protein Total Protein Albumin Triglycerides Amylase Lipase Urine WBC (Auto) Vancomycin Trough 12/25/17 12/26/17 12/26/17 Unknown 02:26 05:29 WBC RBC Hgb Hct MCV MCH MCHC RDW Plt Count Lymph % (Auto) Eos # Seg Neutrophils % Seg Neuts % (Manual) Lymphocytes % (Manual) Monocytes % (Manual) Nucleated RBC % Seg Neutrophils # Seg Neutrophils # Man Lymphocytes # (Manual) Monocytes # (Manual) Eosinophils # (Manual) APTT POC ABG pH ABG pH POC ABG pCO2 POC ABG pO2 ABG pO2 ABG HCO3 ABG O2 Saturation ABG Base Excess ABG Hemoglobin VBG pH Oxyhemoglobin Sodium Potassium 2.8 L* Chloride Carbon Dioxide BUN Creatinine 0.6 L Glucose POC Glucose 167 H 216 H Lactic Acid Calcium 7.4 L Phosphorus Total Bilirubin AST ALT C-Reactive Protein Total Protein Albumin Triglycerides Amylase Lipase Urine WBC (Auto) Vancomycin Trough 12/26/17 12/26/17 12/26/17 10:21 14:30 18:35 WBC RBC Hgb Hct MCV MCH MCHC RDW Plt Count Lymph % (Auto) Eos # Seg Neutrophils % Seg Neuts % (Manual) Lymphocytes % (Manual) Monocytes % (Manual) Nucleated RBC % Seg Neutrophils # Seg Neutrophils # Man Lymphocytes # (Manual) Monocytes # (Manual) Eosinophils # (Manual) APTT POC ABG pH ABG pH POC ABG pCO2 POC ABG pO2 ABG pO2 ABG HCO3 ABG O2 Saturation ABG Base Excess ABG Hemoglobin VBG pH Oxyhemoglobin Sodium Potassium Chloride Carbon Dioxide BUN Creatinine Glucose POC Glucose 164 H 157 H 146 H Lactic Acid Calcium Phosphorus Total Bilirubin AST ALT C-Reactive Protein Total Protein Albumin Triglycerides Amylase Lipase Urine WBC (Auto) Vancomycin Trough 12/26/17 12/26/17 12/27/17 21:21 Unknown 01:54 WBC RBC Hgb Hct MCV MCH MCHC RDW Plt Count Lymph % (Auto) Eos # Seg Neutrophils % Seg Neuts % (Manual) Lymphocytes % (Manual) Monocytes % (Manual) Nucleated RBC % Seg Neutrophils # Seg Neutrophils # Man Lymphocytes # (Manual) Monocytes # (Manual) Eosinophils # (Manual) APTT POC ABG pH ABG pH POC ABG pCO2 POC ABG pO2 ABG pO2 ABG HCO3 ABG O2 Saturation ABG Base Excess ABG Hemoglobin VBG pH Oxyhemoglobin Sodium Potassium 3.0 L Chloride Carbon Dioxide BUN Creatinine 0.5 L Glucose 166 H POC Glucose 132 H 157 H Lactic Acid Calcium 7.8 L Phosphorus Total Bilirubin AST ALT C-Reactive Protein Total Protein Albumin Triglycerides Amylase Lipase Urine WBC (Auto) Vancomycin Trough 12/27/17 12/27/17 12/27/17 05:20 05:20 05:44 WBC 26.4 H RBC 2.83 L Hgb 9.3 L Hct 27.6 L MCV 98 H MCH 33 H MCHC RDW Plt Count Lymph % (Auto) Eos # Seg Neutrophils % Seg Neuts % (Manual) 85.0 H Lymphocytes % (Manual) 5.0 L Monocytes % (Manual) Nucleated RBC % Seg Neutrophils # Seg Neutrophils # Man 22.4 H Lymphocytes # (Manual) Monocytes # (Manual) Eosinophils # (Manual) 0.5 H APTT POC ABG pH ABG pH POC ABG pCO2 POC ABG pO2 ABG pO2 ABG HCO3 ABG O2 Saturation ABG Base Excess ABG Hemoglobin VBG pH Oxyhemoglobin Sodium Potassium 2.3 L* D Chloride Carbon Dioxide BUN 7 L Creatinine 0.6 L Glucose 123 H POC Glucose 128 H Lactic Acid Calcium 8.1 L Phosphorus Total Bilirubin AST ALT C-Reactive Protein Total Protein Albumin Triglycerides Amylase Lipase Urine WBC (Auto) Vancomycin Trough 12/27/17 12/27/17 12/27/17 10:04 14:44 15:30 WBC RBC Hgb Hct MCV MCH MCHC RDW Plt Count Lymph % (Auto) Eos # Seg Neutrophils % Seg Neuts % (Manual) Lymphocytes % (Manual) Monocytes % (Manual) Nucleated RBC % Seg Neutrophils # Seg Neutrophils # Man Lymphocytes # (Manual) Monocytes # (Manual) Eosinophils # (Manual) APTT POC ABG pH ABG pH POC ABG pCO2 POC ABG pO2 ABG pO2 ABG HCO3 ABG O2 Saturation ABG Base Excess ABG Hemoglobin VBG pH Oxyhemoglobin Sodium Potassium 3.1 L D Chloride Carbon Dioxide BUN Creatinine Glucose POC Glucose 115 H 128 H Lactic Acid Calcium Phosphorus Total Bilirubin AST ALT C-Reactive Protein Total Protein Albumin Triglycerides Amylase Lipase Urine WBC (Auto) Vancomycin Trough 12/28/17 12/28/17 12/28/17 00:39 02:13 05:17 WBC RBC Hgb Hct MCV MCH MCHC RDW Plt Count Lymph % (Auto) Eos # Seg Neutrophils % Seg Neuts % (Manual) Lymphocytes % (Manual) Monocytes % (Manual) Nucleated RBC % Seg Neutrophils # Seg Neutrophils # Man Lymphocytes # (Manual) Monocytes # (Manual) Eosinophils # (Manual) APTT POC ABG pH ABG pH 7.497 H POC ABG pCO2 POC ABG pO2 ABG pO2 71.4 L ABG HCO3 29.9 H ABG O2 Saturation ABG Base Excess 6.2 H ABG Hemoglobin 7.9 L VBG pH Oxyhemoglobin 94.9 L Sodium Potassium Chloride Carbon Dioxide BUN Creatinine Glucose POC Glucose 112 H 108 H Lactic Acid Calcium Phosphorus Total Bilirubin AST ALT C-Reactive Protein Total Protein Albumin Triglycerides Amylase Lipase Urine WBC (Auto) Vancomycin Trough 12/28/17 12/28/17 12/28/17 08:47 08:47 09:10 WBC 28.1 H RBC 2.76 L Hgb 9.1 L Hct 27.0 L MCV 98 H MCH 33 H MCHC RDW Plt Count Lymph % (Auto) Eos # Seg Neutrophils % Seg Neuts % (Manual) Lymphocytes % (Manual) Monocytes % (Manual) Nucleated RBC % Seg Neutrophils # Seg Neutrophils # Man Lymphocytes # (Manual) Monocytes # (Manual) Eosinophils # (Manual) APTT POC ABG pH ABG pH POC ABG pCO2 POC ABG pO2 ABG pO2 ABG HCO3 ABG O2 Saturation ABG Base Excess ABG Hemoglobin VBG pH Oxyhemoglobin Sodium Potassium 2.2 L* D Chloride Carbon Dioxide BUN 5 L Creatinine 0.5 L Glucose 106 H POC Glucose Lactic Acid Calcium 8.3 L Phosphorus 2.20 L Total Bilirubin AST ALT C-Reactive Protein Total Protein Albumin Triglycerides Amylase Lipase Urine WBC (Auto) Vancomycin Trough 12/28/17 12/28/17 12/28/17 13:28 14:22 18:48 WBC RBC Hgb Hct MCV MCH MCHC RDW Plt Count Lymph % (Auto) Eos # Seg Neutrophils % Seg Neuts % (Manual) Lymphocytes % (Manual) Monocytes % (Manual) Nucleated RBC % Seg Neutrophils # Seg Neutrophils # Man Lymphocytes # (Manual) Monocytes # (Manual) Eosinophils # (Manual) APTT POC ABG pH ABG pH 7.476 H POC ABG pCO2 POC ABG pO2 ABG pO2 167.7 H ABG HCO3 30.9 H ABG O2 Saturation 99.1 H ABG Base Excess 6.7 H ABG Hemoglobin 8.5 L VBG pH Oxyhemoglobin Sodium Potassium Chloride Carbon Dioxide BUN Creatinine Glucose POC Glucose 141 H 129 H Lactic Acid Calcium Phosphorus Total Bilirubin AST ALT C-Reactive Protein Total Protein Albumin Triglycerides Amylase Lipase Urine WBC (Auto) Vancomycin Trough 12/28/17 12/29/17 12/29/17 21:22 02:45 05:11 WBC RBC Hgb Hct MCV MCH MCHC RDW Plt Count Lymph % (Auto) Eos # Seg Neutrophils % Seg Neuts % (Manual) Lymphocytes % (Manual) Monocytes % (Manual) Nucleated RBC % Seg Neutrophils # Seg Neutrophils # Man Lymphocytes # (Manual) Monocytes # (Manual) Eosinophils # (Manual) APTT POC ABG pH ABG pH POC ABG pCO2 POC ABG pO2 ABG pO2 ABG HCO3 ABG O2 Saturation ABG Base Excess ABG Hemoglobin VBG pH Oxyhemoglobin Sodium Potassium Chloride Carbon Dioxide BUN Creatinine Glucose POC Glucose 123 H 138 H 138 H Lactic Acid Calcium Phosphorus Total Bilirubin AST ALT C-Reactive Protein Total Protein Albumin Triglycerides Amylase Lipase Urine WBC (Auto) Vancomycin Trough 12/29/17 12/29/17 12/29/17 05:50 08:04 08:04 WBC 20.8 H RBC 2.26 L Hgb 7.5 L Hct 22.7 L MCV 100 H MCH 33 H MCHC RDW Plt Count Lymph % (Auto) Eos # Seg Neutrophils % Seg Neuts % (Manual) 93.0 H Lymphocytes % (Manual) 2.0 L Monocytes % (Manual) Nucleated RBC % Seg Neutrophils # Seg Neutrophils # Man 19.3 H Lymphocytes # (Manual) 0.4 L Monocytes # (Manual) Eosinophils # (Manual) 0.7 H APTT POC ABG pH ABG pH 7.467 H POC ABG pCO2 POC ABG pO2 ABG pO2 ABG HCO3 28.2 H ABG O2 Saturation ABG Base Excess 4.0 H ABG Hemoglobin < 5.1 L VBG pH Oxyhemoglobin Sodium Potassium 3.0 L D Chloride Carbon Dioxide BUN Creatinine 0.5 L Glucose 147 H POC Glucose Lactic Acid Calcium 7.8 L Phosphorus Total Bilirubin AST ALT C-Reactive Protein Total Protein 5.6 L Albumin 2.4 L Triglycerides Amylase Lipase Urine WBC (Auto) Vancomycin Trough 12/29/17 12/29/17 12/29/17 08:20 10:59 14:09 WBC RBC Hgb Hct MCV MCH MCHC RDW Plt Count Lymph % (Auto) Eos # Seg Neutrophils % Seg Neuts % (Manual) Lymphocytes % (Manual) Monocytes % (Manual) Nucleated RBC % Seg Neutrophils # Seg Neutrophils # Man Lymphocytes # (Manual) Monocytes # (Manual) Eosinophils # (Manual) APTT POC ABG pH ABG pH POC ABG pCO2 POC ABG pO2 ABG pO2 ABG HCO3 ABG O2 Saturation ABG Base Excess ABG Hemoglobin VBG pH Oxyhemoglobin Sodium Potassium Chloride Carbon Dioxide BUN Creatinine Glucose POC Glucose 153 H 186 H 183 H Lactic Acid Calcium Phosphorus Total Bilirubin AST ALT C-Reactive Protein Total Protein Albumin Triglycerides Amylase Lipase Urine WBC (Auto) Vancomycin Trough 12/29/17 12/29/17 12/29/17 18:03 22:05 22:56 WBC RBC Hgb Hct MCV MCH MCHC RDW Plt Count Lymph % (Auto) Eos # Seg Neutrophils % Seg Neuts % (Manual) Lymphocytes % (Manual) Monocytes % (Manual) Nucleated RBC % Seg Neutrophils # Seg Neutrophils # Man Lymphocytes # (Manual) Monocytes # (Manual) Eosinophils # (Manual) APTT POC ABG pH ABG pH POC ABG pCO2 POC ABG pO2 ABG pO2 ABG HCO3 ABG O2 Saturation ABG Base Excess ABG Hemoglobin VBG pH Oxyhemoglobin Sodium Potassium Chloride Carbon Dioxide BUN Creatinine Glucose POC Glucose 159 H 146 H 179 H Lactic Acid Calcium Phosphorus Total Bilirubin AST ALT C-Reactive Protein Total Protein Albumin Triglycerides Amylase Lipase Urine WBC (Auto) Vancomycin Trough 12/30/17 12/30/17 12/30/17 02:03 04:50 04:50 WBC 18.3 H RBC 2.22 L Hgb 7.4 L Hct 23.0 L MCV 104 H MCH 33 H MCHC RDW Plt Count 137 L Lymph % (Auto) 9.0 L Eos # 0.5 H Seg Neutrophils % 84.9 H Seg Neuts % (Manual) Lymphocytes % (Manual) Monocytes % (Manual) Nucleated RBC % Seg Neutrophils # 15.6 H Seg Neutrophils # Man Lymphocytes # (Manual) Monocytes # (Manual) Eosinophils # (Manual) APTT POC ABG pH ABG pH POC ABG pCO2 POC ABG pO2 ABG pO2 ABG HCO3 ABG O2 Saturation ABG Base Excess ABG Hemoglobin VBG pH Oxyhemoglobin Sodium 147 H Potassium 3.1 L D Chloride 107.5 H Carbon Dioxide BUN Creatinine 0.5 L Glucose 120 H POC Glucose 118 H Lactic Acid Calcium 7.4 L Phosphorus Total Bilirubin AST ALT C-Reactive Protein Total Protein Albumin Triglycerides Amylase Lipase Urine WBC (Auto) Vancomycin Trough 12/30/17 05:04 WBC RBC Hgb Hct MCV MCH MCHC RDW Plt Count Lymph % (Auto) Eos # Seg Neutrophils % Seg Neuts % (Manual) Lymphocytes % (Manual) Monocytes % (Manual) Nucleated RBC % Seg Neutrophils # Seg Neutrophils # Man Lymphocytes # (Manual) Monocytes # (Manual) Eosinophils # (Manual) APTT POC ABG pH ABG pH POC ABG pCO2 POC ABG pO2 ABG pO2 ABG HCO3 ABG O2 Saturation ABG Base Excess ABG Hemoglobin VBG pH Oxyhemoglobin Sodium Potassium Chloride Carbon Dioxide BUN Creatinine Glucose POC Glucose 150 H Lactic Acid Calcium Phosphorus Total Bilirubin AST ALT C-Reactive Protein Total Protein Albumin Triglycerides Amylase Lipase Urine WBC (Auto) Vancomycin Trough
[2017-12-30] MEDS: ZYVOX 600MG/300ML 600 MG/300 ML BAG IV SCH ×2 (13:42→22:20)
--- NOTE | 2017-12-30 15:18 | Progress Note ---
Assessment and Plan Assessment and plan: --Febrile illness/sepsis/aspiration pneumonia/ARDS Antipyretics, repeat blood cultures, chest x-ray, continue Zyvox cefepime and Flagyl ID following, follow cultures --Acute hypoxic respiratory failure : self extubated , intubated again for respiratory failure Continue ventilatory support, wean as tolerated and extubated Continue nebulizers, IV steroids, IV antibiotics , pulmonary following --Hypokalemia; replenished per protocol with IV and oral potassium chloride Check magnesium, closely monitor electrolytes --Persistent fevers; secondary to sepsis Continue IV antibiotics, antipyretics, follow cultures ID following --Alcohol abuse: sedated, cont iv thiamine --Hypotension on Levophed, titrate systolic blood pressure to more than 100 --Thrombocytopenia, improving, no evidence of bleeding --Severe protein calorie malnutrition; nutrition supplements, tube feeding and supportive care --DM type 2-continue Accu-Chek sliding scale coverage long-acting insulin, chilled feeding --DVT prophylaxis: Continue heparin and SCDs Plan of care is reviewed with the patient's and his nurse Consults and recommendations noted and appreciated Critical care time 32 minutes The high probability of a clinically significant sudden or life-threatening deterioration of the [infectious, respiratory, hematologic] system(s) required my full and direct attention, intervention and personal management. The aggregate critical care time was [32 ] minutes. This time is in addition to the time spent performing reported procedures but including [ X] Data review and interpretation [ X] Patient assessment and monitoring of vital signs [ X ] Documentation [X] Medication orders and management History Interval history: Patient seen and examined in ICU this morning medical records reviewed No new events reported by the nursing staff Remains intubated on ventilatory support and sedated Patient is febrile with MAXIMUM TEMPERATURE of 102 Vital signs reviewed Patient is comfortable sedated Hospitalist Physical - Constitutional Vitals: Temp Pulse Resp BP Pulse Ox 100.4 F H 104 H 33 H 131/83 97 12/30/17 12:00 12/30/17 12:15 12/30/17 11:00 12/30/17 12:15 12/30/17 12:15 General appearance: Present: no acute distress, well-nourished, other ( intubated on vent) - EENT Eyes: Present: PERRL, EOM intact - Neck Neck: Present: supple, normal ROM - Respiratory Respiratory effort: normal Respiratory: bilateral: diminished, rhonchi, negative: rales, wheezing - Cardiovascular Rhythm: regular Heart Sounds: Present: S1 & S2 (tachycardia) - Extremities Extremities: no ischemia, No edema - Abdominal General gastrointestinal: soft, non-tender, non-distended, normal bowel sounds - Integumentary Integumentary: Present: clear, warm - Psychiatric Psychiatric: other (noncommunicative) - Neurologic Neurologic: other (intubated and sedated) Results - Labs CBC & Chem 7: 01/01/18 04:00 01/01/18 04:00 Labs: Laboratory Last Values WBC 18.3 K/mm3 (4.5-11.0) H 12/30/17 04:50 RBC 2.22 M/mm3 (3.65-5.03) L 12/30/17 04:50 Hgb 7.4 gm/dl (11.8-15.2) L 12/30/17 04:50 Hct 23.0 % (35.5-45.6) L 12/30/17 04:50 MCV 104 fl (84-94) H 12/30/17 04:50 MCH 33 pg (28-32) H 12/30/17 04:50 MCHC 32 % (32-34) 12/30/17 04:50 RDW 13.8 % (13.2-15.2) 12/30/17 04:50 Plt Count 137 K/mm3 (140-440) L 12/30/17 04:50 Lymph % (Auto) 9.0 % (13.4-35.0) L 12/30/17 04:50 [place] % (Auto) 2.5 % (0.0-7.3) 12/30/17 04:50 Eos % (Auto) 3.0 % (0.0-4.3) 12/30/17 04:50 Baso % (Auto) 0.6 % (0.0-1.8) 12/30/17 04:50 Lymph # 1.6 K/mm3 (1.2-5.4) 12/30/17 04:50 [place] # 0.5 K/mm3 (0.0-0.8) 12/30/17 04:50 Eos # 0.5 K/mm3 (0.0-0.4) H 12/30/17 04:50 Baso # 0.1 K/mm3 (0.0-0.1) 12/30/17 04:50 Add Manual Diff Complete 12/29/17 08:04 Total Counted 200 12/29/17 08:04 Seg Neutrophils % 84.9 % (40.0-70.0) H 12/30/17 04:50 Seg Neuts % (Manual) 93.0 % (40.0-70.0) H 12/29/17 08:04 Band Neutrophils % 0 % 12/29/17 08:04 Lymphocytes % (Manual) 2.0 % (13.4-35.0) L 12/29/17 08:04 Reactive Lymphs % (Man) 0 % 12/29/17 08:04 Monocytes % (Manual) 1.5 % (0.0-7.3) 12/29/17 08:04 Eosinophils % (Manual) 3.5 % (0.0-4.3) 12/29/17 08:04 Basophils % (Manual) 0 % (0.0-1.8) 12/29/17 08:04 Metamyelocytes % 0 % 12/29/17 08:04 Myelocytes % 0 % 12/29/17 08:04 Promyelocytes % 0 % 12/29/17 08:04 Blast Cells % 0 % 12/29/17 08:04 Nucleated RBC % Not Reportable 12/29/17 08:04 Seg Neutrophils # 15.6 K/mm3 (1.8-7.7) H 12/30/17 04:50 Seg Neutrophils # Man 19.3 K/mm3 (1.8-7.7) H 12/29/17 08:04 Band Neutrophils # 0.0 K/mm3 12/29/17 08:04 Lymphocytes # (Manual) 0.4 K/mm3 (1.2-5.4) L 12/29/17 08:04 Abs React Lymphs (Man) 0.0 K/mm3 12/29/17 08:04 Monocytes # (Manual) 0.3 K/mm3 (0.0-0.8) 12/29/17 08:04 Eosinophils # (Manual) 0.7 K/mm3 (0.0-0.4) H 12/29/17 08:04 Basophils # (Manual) 0.0 K/mm3 (0.0-0.1) 12/29/17 08:04 Metamyelocytes # 0.0 K/mm3 12/29/17 08:04 Myelocytes # 0.0 K/mm3 12/29/17 08:04 Promyelocytes # 0.0 K/mm3 12/29/17 08:04 Blast Cells # 0.0 K/mm3 12/29/17 08:04 Pathologist Review 12/23/17 09:25 WBC Morphology Not Reportable 12/29/17 08:04 Hypersegmented Neuts Not Reportable 12/29/17 08:04 Hyposegmented Neuts Not Reportable 12/29/17 08:04 Hypogranular Neuts Not Reportable 12/29/17 08:04 Smudge Cells Not Reportable 12/29/17 08:04 Toxic Granulation Not Reportable 12/29/17 08:04 Toxic Vacuolation Not Reportable 12/29/17 08:04 Dohle Bodies Not Reportable 12/29/17 08:04 Pelger-Huet Anomaly Not Reportable 12/29/17 08:04 Mary Rods Not Reportable 12/29/17 08:04 Platelet Estimate Consistent w auto 12/29/17 08:04 Clumped Platelets Not Reportable 12/29/17 08:04 Plt Clumps, EDTA Not Reportable 12/29/17 08:04 Large Platelets Not Reportable 12/29/17 08:04 Giant Platelets Not Reportable 12/29/17 08:04 Platelet Satelliting Not Reportable 12/29/17 08:04 Plt Morphology Comment Not Reportable 12/29/17 08:04 RBC Morphology Not Reportable 12/29/17 08:04 Dimorphic RBCs Not Reportable 12/29/17 08:04 Polychromasia Not Reportable 12/29/17 08:04 Hypochromasia Not Reportable 12/29/17 08:04 Poikilocytosis Not Reportable 12/29/17 08:04 Anisocytosis 1+ 12/29/17 08:04 Microcytosis Not Reportable 12/29/17 08:04 Macrocytosis Not Reportable 12/29/17 08:04 Spherocytes Not Reportable 12/29/17 08:04 Pappenheimer Bodies Not Reportable 12/29/17 08:04 Sickle Cells Not Reportable 12/29/17 08:04 Target Cells Not Reportable 12/29/17 08:04 Tear Drop Cells Not Reportable 12/29/17 08:04 Ovalocytes Not Reportable 12/29/17 08:04 Stomatocytes 1+ 12/29/17 08:04 Helmet Cells Not Reportable 12/29/17 08:04 Arceo-[place] Bodies Not Reportable 12/29/17 08:04 [place] Rings Not Reportable 12/29/17 08:04 Chidi Cells Not Reportable 12/29/17 08:04 Bite Cells Not Reportable 12/29/17 08:04 Crenated Cell Not Reportable 12/29/17 08:04 Elliptocytes Not Reportable 12/29/17 08:04 Acanthocytes (Spur) Not Reportable 12/29/17 08:04 Rouleaux Not Reportable 12/29/17 08:04 Hemoglobin C Crystals Not Reportable 12/29/17 08:04 Schistocytes Not Reportable 12/29/17 08:04 Malaria parasites Not Reportable 12/29/17 08:04 Vipul Bodies Not Reportable 12/29/17 08:04 Hem Pathologist Commnt No 12/29/17 08:04 PT 14.9 Sec. (12.2-14.9) 12/15/17 04:05 INR 1.11 (0.87-1.13) 12/15/17 04:05 APTT 20.9 Sec. (24.2-36.6) L 12/15/17 04:05 POC ABG pH 7.503 (7.35-7.45) H 12/25/17 03:38 ABG pH 7.467 pH Units (7.350-7.450) H 12/29/17 05:50 POC ABG pCO2 35.8 (35-45) 12/25/17 03:38 ABG pCO2 39.9 mm Hg 12/29/17 05:50 POC ABG pO2 66 (80-105) L 12/25/17 03:38 ABG pO2 85.3 mm Hg (80.0-90.0) 12/29/17 05:50 POC ABG HCO3 28.1 12/25/17 03:38 ABG HCO3 28.2 mmol/L (20.0-26.0) H 12/29/17 05:50 POC ABG Total CO2 29 12/25/17 03:38 POC ABG O2 Sat 95 12/25/17 03:38 ABG O2 Saturation 97.2 % (95.0-99.0) 12/29/17 05:50 ABG O2 Content 5.1 (0.0-44) 12/29/17 05:50 POC ABG Base Excess 5 12/25/17 03:38 ABG Base Excess 4.0 mmol/L (-2.0-3.0) H 12/29/17 05:50 ABG Hemoglobin < 5.1 gm/dl (14.0-18.0) L 12/29/17 05:50 ABG Carboxyhemoglobin 1.8 % (0.0-5.0) 12/29/17 05:50 ABG Methemoglobin 0.1 % (0.0-1.5) 12/29/17 05:50 VBG pH 7.472 (7.320-7.420) H 12/12/17 19:18 Oxyhemoglobin 95.4 % (95.0-99.0) 12/29/17 05:50 FiO2 50 % 12/29/17 05:50 Sodium 147 mmol/L (137-145) H 12/30/17 04:50 Potassium 3.1 mmol/L (3.6-5.0) L D 12/30/17 04:50 Chloride 107.5 mmol/L (98-107) H 12/30/17 04:50 Carbon Dioxide 25 mmol/L (22-30) 12/30/17 04:50 Anion Gap 18 mmol/L 12/30/17 04:50 BUN 10 mg/dL (9-20) 12/30/17 04:50 Creatinine 0.5 mg/dL (0.8-1.5) L 12/30/17 04:50 Estimated GFR > 60 ml/min 12/30/17 04:50 BUN/Creatinine Ratio 20 % 12/30/17 04:50 Glucose 120 mg/dL (75-100) H 12/30/17 04:50 POC Glucose 113 (70-105) H 12/30/17 13:53 Lactic Acid 2.00 mmol/L (0.7-2.0) 12/13/17 19:38 Calcium 7.4 mg/dL (8.4-10.2) L 12/30/17 04:50 Phosphorus 2.20 mg/dL (2.5-4.5) L 12/28/17 08:47 Magnesium 1.90 mg/dL (1.7-2.3) 12/30/17 04:50 Total Bilirubin 0.60 mg/dL (0.1-1.2) 12/29/17 08:04 AST 36 units/L (5-40) 12/29/17 08:04 ALT 29 units/L (7-56) 12/29/17 08:04 Alkaline Phosphatase 68 units/L (35-129) 12/29/17 08:04 C-Reactive Protein 7.10 mg/dL (0.00-1.30) H 12/20/17 13:40 NT-Pro-B Natriuret Pep 409.9 pg/mL (0-450) 12/12/17 19:02 Total Protein 5.6 g/dL (6.3-8.2) L 12/29/17 08:04 Albumin 2.4 g/dL (3.9-5) L 12/29/17 08:04 Albumin/Globulin Ratio 0.8 % 12/29/17 08:04 Triglycerides 1042 mg/dL (2-149) H 12/20/17 13:40 Amylase 20 units/L (27-131) L 12/13/17 13:47 Lipase 9 units/L (13-60) L 12/13/17 13:47 Urine Color [place] (Yellow) 12/15/17 17:00 Urine Turbidity Hazy (Clear) 12/15/17 17:00 Urine pH 6.0 (5.0-7.0) 12/15/17 17:00 Ur Specific [place] 1.027 (1.003-1.030) 12/15/17 17:00 Urine Protein 30 mg/dl mg/dL (Negative) 12/15/17 17:00 Urine Glucose (UA) Neg mg/dL (Negative) 12/15/17 17:00 Urine Ketones Tr mg/dL (Negative) 12/15/17 17:00 Urine Blood Lg (Negative) 12/15/17 17:00 Urine Nitrite Neg (Negative) 12/15/17 17:00 Urine Bilirubin Neg (Negative) 12/15/17 17:00 Urine Ictotest Positive (Negative) 12/12/17 20:42 Urine Urobilinogen < 2.0 mg/dL (<2.0) 12/15/17 17:00 Ur Leukocyte Esterase Tr (Negative) 12/15/17 17:00 Urine WBC (Auto) 38.0 /HPF (0.0-6.0) H 12/15/17 17:00 Urine RBC (Auto) 65.0 /HPF (0.0-6.0) 12/15/17 17:00 U Epithel Cells (Auto) < 1.0 /HPF (0-13.0) 12/12/17 20:42 Urine Bacteria (Auto) 1+ /HPF (Negative) 12/15/17 17:00 Urine Mucus 1+ /HPF 12/12/17 20:42 Vancomycin Trough 22.5 ug/mL (5.0-20.0) H 12/25/17 12:58 JERMAIN Screen Negative (Negative) 12/18/17 16:44 Proteinase 3 (PR3) Ab <1.0 AI (<1.0) 12/18/17 16:33 Myeloperoxidase Ab <1.0 AI (<1.0) 12/18/17 16:33 Complement C3 113 mg/dL (82-185) 12/18/17 16:33 Complement C4 15 mg/dL (15-53) 12/18/17 16:33 Hepatitis A IgM Ab Non-reactive (NonReactive) 12/20/17 13:40 Hep Bs Antigen Non-reactive (Negative) 12/20/17 13:40 Hep B Core IgM Ab Non-reactive (NonReactive) 12/20/17 13:40 Hepatitis C Antibody Non-reactive (NonReactive) 12/20/17 13:40 HIV 1&2 Antibody Rapid Non react (Non React) 12/20/17 13:40 HIV P24 Antigen Non react (Non React) 12/20/17 13:40 Influenza A (Rapid) Negative (Negative) 12/12/17 22:00 Influenza B (Rapid) Negative (Negative) 12/12/17 22:00 Urine Legionella Ag Not detected (Not Detected) 12/14/17 16:15 Miscellaneous Test Flexitest 1 12/14/17 16:15
--- NOTE | 2017-12-30 21:32 | XRay Report ---
FINAL REPORT EXAM: XR ABDOMEN 1V AP HISTORY: OG placement TECHNIQUE: Abdomen single view for tube placement PRIORS: None. FINDINGS: There is OG tube present. Distal tip overlying the fundus of the stomach. Visualized bowel gas pattern is unremarkable. No additional change appreciated on the view obtained. IMPRESSION: OG tube with tip at the fundus of the stomach
--- NOTE | 2017-12-30 23:26 | XRay Report ---
FINAL REPORT EXAM: XR ABDOMEN 1V AP HISTORY: dobhoff tube placement - advanced TECHNIQUE: Single AP PA view of the abdomen for tube placement PRIORS: Correlated with today's earlier exam FINDINGS: Feeding tube has been repositioned. Tube is slightly coronal and overlies the fundus of the stomach. There is no additional interval change appreciated IMPRESSION: Feeding tube with distal tip at the fundus of the stomach
[2017-12-31] MEDS: LOPRESSOR IV SCH ×6 (00:41→23:24)
[2017-12-31] MEDS: TYLENOL PO PRN ×2 (01:09→20:03)
[2017-12-31] MEDS: DEXMEDETOMIDINE 200 MCG in NACL 0.9% 48 ML IV SCH ×8 (02:06→23:45)
[2017-12-31] MEDS: HumaLOG SUB-Q SCH ×6 (02:10→21:44)
[2017-12-31] MEDS: DUONEB *Not for PRN Use IH SCH ×4 (02:13→19:26)
[2017-12-31 03:38] LABS: Basophils # (Auto) 0.1 K/mm3 (0.0-0.1); Basophils % (Auto) 0.3 % (0.0-1.8); Eosinophils # (Auto) 0.6 K/mm3 (0.0-0.4); Eosinophils % (Auto) 3.5 % (0.0-4.3); Hematocrit 20.6 % (35.5-45.6); Hemoglobin 6.9 gm/dl (11.8-15.2); Lymphocytes # (Auto) 1.8 K/mm3 (1.2-5.4); Lymphocytes % (Auto) 10.5 % (13.4-35.0); Mean Corpuscular HGB Conc 34 % (32-34); Mean Corpuscular Hemoglobin 33 pg (28-32); Mean Corpuscular Volume 99 fl (84-94); Monocytes # (Auto) 0.6 K/mm3 (0.0-0.8); Monocytes % (Auto) 3.4 % (0.0-7.3); Platelet Count 187 K/mm3 (140-440); Red Blood Count 2.08 M/mm3 (3.65-5.03); Red Cell Distribution Width 13.1 % (13.2-15.2)
[2017-12-31 03:54] LABS: BUN/Creatinine Ratio 15; Blood Urea Nitrogen 9 mg/dL (9-20); Calcium 7.8 mg/dL (8.4-10.2); Hemolysis Index 0
[2017-12-31 05:26] LABS: ABG Base Excess 5.3 mmol/L (-2.0-3.0); ABG HCO3 28.7 mmol/L (20.0-26.0); ABG Methemoglobin 0.2 % (0.0-1.5); ABG PCO2 36.3 mm Hg; ABG PH 7.516 pH Units (7.350-7.450); ABG PO2 69.2 mm Hg (80.0-90.0)
[2017-12-31] MEDS: MAXIPIME 2 GM in NACL 0.9% 20 ML IV SCH ×2 (05:30→13:58)
[2017-12-31] MEDS: FLAGYL 500 MG/100 ML 500 MG/100 ML BAG IV SCH ×2 (05:40→13:57)
[2017-12-31] MEDS: HEPARIN SUB-Q SCH ×3 (05:42→21:04)
[2017-12-31] MEDS: SUBLIMAZE IV PRN ×2 (08:55→14:40)
[2017-12-31] MEDS ORDERED: NACL 0.9% 500 ML 500 ML IV ONE (09:15)
[2017-12-31] MEDS ORDERED: KCL 10MEQ/100ML 10 MEQ/100 ML BAG IV SCH (10:00)
[2017-12-31] MEDS ORDERED: POTASSIUM CHLORIDE FEEDTUBE ONE (10:00)
[2017-12-31] MEDS: ZYVOX 600MG/300ML 600 MG/300 ML BAG IV SCH (10:33)
[2017-12-31] MEDS: PEPCID PO SCH ×2 (10:34→21:02)
[2017-12-31] MEDS: LANTUS SUB-Q SCH (10:36)
[2017-12-31] MEDS: SODIUM CHLORIDE FLUSH SYRINGE 10 ML IV SCH ×2 (10:36→21:03)
[2017-12-31] MEDS: VITAMIN B-1 PO SCH (10:37)
[2017-12-31] MEDS: POTASSIUM CHLORIDE PO SCH (10:43)
[2017-12-31] MEDS: LIBRIUM PO SCH ×3 (11:57→23:25)
--- NOTE | 2017-12-31 13:21 | Progress Note ---
Assessment and Plan Acute respiratory failure. Stable on ventilator support at this time, PEEP 8 Pneumonia. Improving AMS, agitation. Restricted weaning, requiring Precedex since other sedative drips like fentanyl are not available. He reportedly had similar behavior in recent weeks on multiple times, requiring combinations sedation in aggressive fashion. Report is that he stabilized with Librium previously per pharmacy report Anemia. 1 unit PRBC ordered already Fever. ID following Recommendations f/u hospital ventilator bundle, We'll continue to titrate PEEP and FiO2 as tolerated Initiate Levaquin every 6 hours continue with fentanyl and decrease fentanyl prior to more aggressive weaning or spontaneous breathing trial Sedation as needed for patient comfort, adjust to RASS -1 to - 3 Maintain extubation precautions Continue SBT if tolerated Discussed with ID option of doing significantly scanning at this point. We'll need to keep the drips down and possibly discontinue and use when necessary medication for transport DVT prophylaxis PPI prophylaxis Critical care time was 31 minutes of [id number] evaluation and coordination of care Subjective Date of service: 12/31/17 Principal diagnosis: ARDS Interval history: Sedated on Precedex plus when necessary fentanyl Objective Vital Signs - 12hr 12/31/17 12/31/17 12/31/17 02:00 03:00 03:26 Temperature Pulse Rate 89 87 84 Pulse Rate [ Anterior Bilateral Throughout] Respiratory 27 H 23 9 L Rate Respiratory Rate [Anterior Bilateral Throughout] Blood Pressure 128/80 114/68 114/68 O2 Sat by Pulse 95 95 94 Oximetry 12/31/17 12/31/17 12/31/17 04:00 05:00 05:41 Temperature 99.1 F Pulse Rate 90 88 88 Pulse Rate [ Anterior Bilateral Throughout] Respiratory 28 H 30 H Rate Respiratory Rate [Anterior Bilateral Throughout] Blood Pressure 131/81 122/77 122/81 O2 Sat by Pulse 93 94 Oximetry 12/31/17 12/31/17 12/31/17 06:00 07:00 08:00 Temperature 98.8 F Pulse Rate 81 97 H 91 H Pulse Rate [ Anterior Bilateral Throughout] Respiratory 28 H 21 35 H Rate Respiratory Rate [Anterior Bilateral Throughout] Blood Pressure 113/69 120/78 120/71 O2 Sat by Pulse 93 88 93 Oximetry 12/31/17 12/31/17 12/31/17 08:05 08:26 09:00 Temperature Pulse Rate 93 H Pulse Rate [ 92 H 95 H Anterior Bilateral Throughout] Respiratory 36 H Rate Respiratory 35 H 33 H Rate [Anterior Bilateral Throughout] Blood Pressure 121/77 O2 Sat by Pulse 92 Oximetry 12/31/17 12/31/17 12/31/17 10:00 11:00 11:54 Temperature 99.4 F Pulse Rate 94 H 89 Pulse Rate [ Anterior Bilateral Throughout] Respiratory 39 H 35 H Rate Respiratory Rate [Anterior Bilateral Throughout] Blood Pressure 124/78 115/65 O2 Sat by Pulse 94 97 Oximetry 12/31/17 12:03 Temperature Pulse Rate 89 Pulse Rate [ Anterior Bilateral Throughout] Respiratory Rate Respiratory Rate [Anterior Bilateral Throughout] Blood Pressure 113/69 O2 Sat by Pulse 97 Oximetry Constitutional: other (intubated, somnolent) Eyes: non-icteric ENT: oropharynx moist Neck: supple, no JVD Effort: normal Ascultation: Bilateral: clear, diminished breath sounds, rales Percussion: Bilateral: not dull Tactile fremitus: Bilateral: normal Cardiovascular: regular rate and rhythm Gastrointestinal: normoactive bowel sounds, soft, non-tender, non-distended, other (obese) Integumentary: normal Extremities: no cyanosis, no edema, pink and warm Neurologic: unable to assess Psychiatric: other (not able to assess) CBC and BMP: 12/31/17 03:15 12/31/17 03:15 ABG, PT/INR, D-dimer: ABG POC ABG pH 7.503 (7.35-7.45) H 12/25/17 03:38 ABG pH 7.516 pH Units (7.350-7.450) H 12/31/17 05:15 POC ABG pCO2 35.8 (35-45) 12/25/17 03:38 ABG pCO2 36.3 mm Hg 12/31/17 05:15 POC ABG pO2 66 (80-105) L 12/25/17 03:38 ABG pO2 69.2 mm Hg (80.0-90.0) L 12/31/17 05:15 POC ABG HCO3 28.1 12/25/17 03:38 POC ABG Total CO2 29 12/25/17 03:38 POC ABG O2 Sat 95 12/25/17 03:38 ABG O2 Saturation 96.0 % (95.0-99.0) 12/31/17 05:15 PT/INR, D-dimer PT 14.9 Sec. (12.2-14.9) 12/15/17 04:05 INR 1.11 (0.87-1.13) 12/15/17 04:05 Abnormal lab findings: Abnormal Labs 12/12/17 12/12/17 12/12/17 18:57 19:02 19:02 WBC RBC Hgb Hct MCV 96 H MCH 34 H MCHC 35 H RDW Plt Count 46 L Lymph % (Auto) Eos # Seg Neutrophils % Seg Neuts % (Manual) 77.0 H Lymphocytes % (Manual) 13.0 L Monocytes % (Manual) Nucleated RBC % Seg Neutrophils # Seg Neutrophils # Man Lymphocytes # (Manual) 0.9 L Monocytes # (Manual) Eosinophils # (Manual) APTT POC ABG pH ABG pH POC ABG pCO2 POC ABG pO2 ABG pO2 ABG HCO3 ABG O2 Saturation ABG Base Excess ABG Hemoglobin VBG pH Oxyhemoglobin Sodium Potassium Chloride Carbon Dioxide BUN Creatinine Glucose POC Glucose 321 H Lactic Acid 4.00 H* Calcium Phosphorus Total Bilirubin AST ALT C-Reactive Protein Total Protein Albumin Triglycerides Amylase Lipase Urine WBC (Auto) Vancomycin Trough Crossmatch 12/12/17 12/12/17 12/12/17 19:02 19:18 20:55 WBC RBC Hgb Hct MCV MCH MCHC RDW Plt Count Lymph % (Auto) Eos # Seg Neutrophils % Seg Neuts % (Manual) Lymphocytes % (Manual) Monocytes % (Manual) Nucleated RBC % Seg Neutrophils # Seg Neutrophils # Man Lymphocytes # (Manual) Monocytes # (Manual) Eosinophils # (Manual) APTT POC ABG pH ABG pH POC ABG pCO2 POC ABG pO2 ABG pO2 ABG HCO3 ABG O2 Saturation ABG Base Excess ABG Hemoglobin VBG pH 7.472 H Oxyhemoglobin Sodium 124 L Potassium Chloride 80.0 L Carbon Dioxide 20 L BUN Creatinine Glucose 382 H POC Glucose 283 H Lactic Acid Calcium 8.1 L Phosphorus Total Bilirubin 4.60 H AST 93 H ALT 112 H C-Reactive Protein Total Protein Albumin 2.5 L Triglycerides Amylase Lipase Urine WBC (Auto) Vancomycin Trough Crossmatch 12/12/17 12/13/17 12/13/17 21:41 00:45 01:29 WBC RBC Hgb Hct MCV MCH MCHC RDW Plt Count Lymph % (Auto) Eos # Seg Neutrophils % Seg Neuts % (Manual) Lymphocytes % (Manual) Monocytes % (Manual) Nucleated RBC % Seg Neutrophils # Seg Neutrophils # Man Lymphocytes # (Manual) Monocytes # (Manual) Eosinophils # (Manual) APTT POC ABG pH ABG pH POC ABG pCO2 POC ABG pO2 ABG pO2 ABG HCO3 ABG O2 Saturation ABG Base Excess ABG Hemoglobin VBG pH Oxyhemoglobin Sodium Potassium Chloride Carbon Dioxide BUN Creatinine Glucose POC Glucose Lactic Acid 4.20 H* 2.70 H* 3.30 H* Calcium Phosphorus Total Bilirubin AST ALT C-Reactive Protein Total Protein Albumin Triglycerides Amylase Lipase Urine WBC (Auto) Vancomycin Trough Crossmatch 12/13/17 12/13/17 12/13/17 02:19 03:44 05:58 WBC RBC Hgb Hct MCV 97 H MCH 34 H MCHC 35 H RDW Plt Count 41 L Lymph % (Auto) Eos # Seg Neutrophils % Seg Neuts % (Manual) Lymphocytes % (Manual) 8.0 L Monocytes % (Manual) 8.0 H Nucleated RBC % Seg Neutrophils # Seg Neutrophils # Man Lymphocytes # (Manual) 0.6 L Monocytes # (Manual) Eosinophils # (Manual) APTT POC ABG pH 7.334 L ABG pH POC ABG pCO2 POC ABG pO2 43 L ABG pO2 ABG HCO3 ABG O2 Saturation ABG Base Excess ABG Hemoglobin VBG pH Oxyhemoglobin Sodium Potassium Chloride Carbon Dioxide BUN Creatinine Glucose POC Glucose Lactic Acid 2.60 H* Calcium Phosphorus Total Bilirubin AST ALT C-Reactive Protein Total Protein Albumin Triglycerides Amylase Lipase Urine WBC (Auto) Vancomycin Trough Crossmatch 12/13/17 12/13/17 12/13/17 05:58 05:58 05:58 WBC RBC Hgb Hct MCV MCH MCHC RDW Plt Count Lymph % (Auto) Eos # Seg Neutrophils % Seg Neuts % (Manual) Lymphocytes % (Manual) Monocytes % (Manual) Nucleated RBC % Seg Neutrophils # Seg Neutrophils # Man Lymphocytes # (Manual) Monocytes # (Manual) Eosinophils # (Manual) APTT POC ABG pH ABG pH POC ABG pCO2 POC ABG pO2 ABG pO2 ABG HCO3 ABG O2 Saturation ABG Base Excess ABG Hemoglobin VBG pH Oxyhemoglobin Sodium 132 L D Potassium Chloride 90.0 L Carbon Dioxide 20 L BUN Creatinine Glucose 346 H POC Glucose 298 H Lactic Acid 4.50 H* Calcium 8.2 L Phosphorus Total Bilirubin AST ALT C-Reactive Protein Total Protein Albumin Triglycerides Amylase Lipase Urine WBC (Auto) Vancomycin Trough Crossmatch 12/13/17 12/13/17 12/13/17 06:27 09:42 11:47 WBC RBC Hgb Hct MCV MCH MCHC RDW Plt Count Lymph % (Auto) Eos # Seg Neutrophils % Seg Neuts % (Manual) Lymphocytes % (Manual) Monocytes % (Manual) Nucleated RBC % Seg Neutrophils # Seg Neutrophils # Man Lymphocytes # (Manual) Monocytes # (Manual) Eosinophils # (Manual) APTT POC ABG pH 7.267 L 7.298 L ABG pH POC ABG pCO2 50.4 H 51.3 H POC ABG pO2 47 L 43 L ABG pO2 ABG HCO3 ABG O2 Saturation ABG Base Excess ABG Hemoglobin VBG pH Oxyhemoglobin Sodium Potassium Chloride Carbon Dioxide BUN Creatinine Glucose POC Glucose 376 H Lactic Acid Calcium Phosphorus Total Bilirubin AST ALT C-Reactive Protein Total Protein Albumin Triglycerides Amylase Lipase Urine WBC (Auto) Vancomycin Trough Crossmatch 12/13/17 12/13/17 12/13/17 12:03 13:47 13:47 WBC RBC Hgb Hct MCV MCH MCHC RDW Plt Count Lymph % (Auto) Eos # Seg Neutrophils % Seg Neuts % (Manual) Lymphocytes % (Manual) Monocytes % (Manual) Nucleated RBC % Seg Neutrophils # Seg Neutrophils # Man Lymphocytes # (Manual) Monocytes # (Manual) Eosinophils # (Manual) APTT POC ABG pH 7.264 L ABG pH POC ABG pCO2 54.9 H POC ABG pO2 55 L ABG pO2 ABG HCO3 ABG O2 Saturation ABG Base Excess ABG Hemoglobin VBG pH Oxyhemoglobin Sodium Potassium Chloride Carbon Dioxide BUN Creatinine Glucose POC Glucose Lactic Acid 2.80 H* Calcium Phosphorus Total Bilirubin AST ALT C-Reactive Protein Total Protein Albumin Triglycerides Amylase 20 L Lipase 9 L Urine WBC (Auto) Vancomycin Trough Crossmatch 12/13/17 12/13/17 12/13/17 15:36 17:39 21:47 WBC RBC Hgb Hct MCV MCH MCHC RDW Plt Count Lymph % (Auto) Eos # Seg Neutrophils % Seg Neuts % (Manual) Lymphocytes % (Manual) Monocytes % (Manual) Nucleated RBC % Seg Neutrophils # Seg Neutrophils # Man Lymphocytes # (Manual) Monocytes # (Manual) Eosinophils # (Manual) APTT POC ABG pH 7.229 L 7.225 L ABG pH POC ABG pCO2 60.9 H 66.3 H POC ABG pO2 42 L 41 L ABG pO2 ABG HCO3 ABG O2 Saturation ABG Base Excess ABG Hemoglobin VBG pH Oxyhemoglobin Sodium Potassium Chloride Carbon Dioxide BUN Creatinine Glucose POC Glucose 289 H Lactic Acid Calcium Phosphorus Total Bilirubin AST ALT C-Reactive Protein Total Protein Albumin Triglycerides Amylase Lipase Urine WBC (Auto) Vancomycin Trough Crossmatch 12/13/17 12/14/17 12/14/17 22:19 02:03 05:16 WBC RBC Hgb Hct MCV MCH MCHC RDW Plt Count Lymph % (Auto) Eos # Seg Neutrophils % Seg Neuts % (Manual) Lymphocytes % (Manual) Monocytes % (Manual) Nucleated RBC % Seg Neutrophils # Seg Neutrophils # Man Lymphocytes # (Manual) Monocytes # (Manual) Eosinophils # (Manual) APTT POC ABG pH 7.247 L ABG pH POC ABG pCO2 61.2 H POC ABG pO2 53 L ABG pO2 ABG HCO3 ABG O2 Saturation ABG Base Excess ABG Hemoglobin VBG pH Oxyhemoglobin Sodium Potassium Chloride Carbon Dioxide BUN Creatinine Glucose POC Glucose 274 H 295 H Lactic Acid Calcium Phosphorus Total Bilirubin AST ALT C-Reactive Protein Total Protein Albumin Triglycerides Amylase Lipase Urine WBC (Auto) Vancomycin Trough Crossmatch 12/14/17 12/14/17 12/14/17 05:32 12:04 16:22 WBC RBC Hgb Hct MCV MCH MCHC RDW Plt Count Lymph % (Auto) Eos # Seg Neutrophils % Seg Neuts % (Manual) Lymphocytes % (Manual) Monocytes % (Manual) Nucleated RBC % Seg Neutrophils # Seg Neutrophils # Man Lymphocytes # (Manual) Monocytes # (Manual) Eosinophils # (Manual) APTT POC ABG pH ABG pH POC ABG pCO2 POC ABG pO2 ABG pO2 ABG HCO3 ABG O2 Saturation ABG Base Excess ABG Hemoglobin VBG pH Oxyhemoglobin Sodium Potassium Chloride Carbon Dioxide BUN Creatinine Glucose POC Glucose 230 H 241 H 231 H Lactic Acid Calcium Phosphorus Total Bilirubin AST ALT C-Reactive Protein Total Protein Albumin Triglycerides Amylase Lipase Urine WBC (Auto) Vancomycin Trough Crossmatch 12/14/17 12/15/17 12/15/17 21:29 02:29 03:25 WBC RBC Hgb Hct MCV MCH MCHC RDW Plt Count Lymph % (Auto) Eos # Seg Neutrophils % Seg Neuts % (Manual) Lymphocytes % (Manual) Monocytes % (Manual) Nucleated RBC % Seg Neutrophils # Seg Neutrophils # Man Lymphocytes # (Manual) Monocytes # (Manual) Eosinophils # (Manual) APTT POC ABG pH 7.330 L ABG pH POC ABG pCO2 55.3 H POC ABG pO2 59 L ABG pO2 ABG HCO3 ABG O2 Saturation ABG Base Excess ABG Hemoglobin VBG pH Oxyhemoglobin Sodium Potassium Chloride Carbon Dioxide BUN Creatinine Glucose POC Glucose 258 H 246 H Lactic Acid Calcium Phosphorus Total Bilirubin AST ALT C-Reactive Protein Total Protein Albumin Triglycerides Amylase Lipase Urine WBC (Auto) Vancomycin Trough Crossmatch 12/15/17 12/15/17 12/15/17 04:05 04:05 04:05 WBC 15.0 H RBC 3.40 L Hgb 11.3 L D Hct 33.8 L D MCV 100 H MCH 33 H MCHC RDW Plt Count 48 L Lymph % (Auto) Eos # Seg Neutrophils % Seg Neuts % (Manual) Lymphocytes % (Manual) 3.0 L Monocytes % (Manual) Nucleated RBC % 2.0 H Seg Neutrophils # Seg Neutrophils # Man Lymphocytes # (Manual) 0.5 L Monocytes # (Manual) 0.9 H Eosinophils # (Manual) APTT 20.9 L POC ABG pH ABG pH POC ABG pCO2 POC ABG pO2 ABG pO2 ABG HCO3 ABG O2 Saturation ABG Base Excess ABG Hemoglobin VBG pH Oxyhemoglobin Sodium Potassium Chloride Carbon Dioxide BUN 27 H Creatinine Glucose 258 H POC Glucose Lactic Acid Calcium 8.1 L Phosphorus Total Bilirubin AST ALT C-Reactive Protein Total Protein Albumin Triglycerides Amylase Lipase Urine WBC (Auto) Vancomycin Trough Crossmatch 12/15/17 12/15/17 12/15/17 05:32 11:17 14:59 WBC RBC Hgb Hct MCV MCH MCHC RDW Plt Count Lymph % (Auto) Eos # Seg Neutrophils % Seg Neuts % (Manual) Lymphocytes % (Manual) Monocytes % (Manual) Nucleated RBC % Seg Neutrophils # Seg Neutrophils # Man Lymphocytes # (Manual) Monocytes # (Manual) Eosinophils # (Manual) APTT POC ABG pH ABG pH POC ABG pCO2 POC ABG pO2 ABG pO2 ABG HCO3 ABG O2 Saturation ABG Base Excess ABG Hemoglobin VBG pH Oxyhemoglobin Sodium Potassium Chloride Carbon Dioxide BUN Creatinine Glucose POC Glucose 247 H 268 H 233 H Lactic Acid Calcium Phosphorus Total Bilirubin AST ALT C-Reactive Protein Total Protein Albumin Triglycerides Amylase Lipase Urine WBC (Auto) Vancomycin Trough Crossmatch 12/15/17 12/15/17 12/15/17 17:00 18:59 21:37 WBC RBC Hgb Hct MCV MCH MCHC RDW Plt Count Lymph % (Auto) Eos # Seg Neutrophils % Seg Neuts % (Manual) Lymphocytes % (Manual) Monocytes % (Manual) Nucleated RBC % Seg Neutrophils # Seg Neutrophils # Man Lymphocytes # (Manual) Monocytes # (Manual) Eosinophils # (Manual) APTT POC ABG pH ABG pH POC ABG pCO2 POC ABG pO2 ABG pO2 ABG HCO3 ABG O2 Saturation ABG Base Excess ABG Hemoglobin VBG pH Oxyhemoglobin Sodium Potassium Chloride Carbon Dioxide BUN Creatinine Glucose POC Glucose 195 H 208 H Lactic Acid Calcium Phosphorus Total Bilirubin AST ALT C-Reactive Protein Total Protein Albumin Triglycerides Amylase Lipase Urine WBC (Auto) 38.0 H Vancomycin Trough Crossmatch 12/16/17 12/16/17 12/16/17 03:17 03:33 04:18 WBC 16.4 H RBC 3.50 L Hgb 11.3 L Hct 35.4 L MCV 101 H MCH MCHC RDW Plt Count 54 L Lymph % (Auto) Eos # Seg Neutrophils % Seg Neuts % (Manual) Lymphocytes % (Manual) Monocytes % (Manual) Nucleated RBC % Seg Neutrophils # Seg Neutrophils # Man Lymphocytes # (Manual) Monocytes # (Manual) Eosinophils # (Manual) APTT POC ABG pH ABG pH POC ABG pCO2 47.7 H POC ABG pO2 ABG pO2 ABG HCO3 ABG O2 Saturation ABG Base Excess ABG Hemoglobin VBG pH Oxyhemoglobin Sodium Potassium Chloride Carbon Dioxide BUN Creatinine Glucose POC Glucose 227 H Lactic Acid Calcium Phosphorus Total Bilirubin AST ALT C-Reactive Protein Total Protein Albumin Triglycerides Amylase Lipase Urine WBC (Auto) Vancomycin Trough Crossmatch 12/16/17 12/16/17 12/16/17 04:18 05:08 10:01 WBC RBC Hgb Hct MCV MCH MCHC RDW Plt Count Lymph % (Auto) Eos # Seg Neutrophils % Seg Neuts % (Manual) Lymphocytes % (Manual) Monocytes % (Manual) Nucleated RBC % Seg Neutrophils # Seg Neutrophils # Man Lymphocytes # (Manual) Monocytes # (Manual) Eosinophils # (Manual) APTT POC ABG pH ABG pH POC ABG pCO2 POC ABG pO2 ABG pO2 ABG HCO3 ABG O2 Saturation ABG Base Excess ABG Hemoglobin VBG pH Oxyhemoglobin Sodium 147 H Potassium Chloride 107.4 H Carbon Dioxide BUN 28 H Creatinine Glucose 240 H POC Glucose 227 H 190 H Lactic Acid Calcium 8.3 L Phosphorus Total Bilirubin AST ALT C-Reactive Protein Total Protein Albumin Triglycerides Amylase Lipase Urine WBC (Auto) Vancomycin Trough Crossmatch 12/16/17 12/16/17 12/16/17 14:15 17:51 21:14 WBC RBC Hgb Hct MCV MCH MCHC RDW Plt Count Lymph % (Auto) Eos # Seg Neutrophils % Seg Neuts % (Manual) Lymphocytes % (Manual) Monocytes % (Manual) Nucleated RBC % Seg Neutrophils # Seg Neutrophils # Man Lymphocytes # (Manual) Monocytes # (Manual) Eosinophils # (Manual) APTT POC ABG pH ABG pH POC ABG pCO2 POC ABG pO2 ABG pO2 ABG HCO3 ABG O2 Saturation ABG Base Excess ABG Hemoglobin VBG pH Oxyhemoglobin Sodium Potassium Chloride Carbon Dioxide BUN Creatinine Glucose POC Glucose 279 H 272 H 260 H Lactic Acid Calcium Phosphorus Total Bilirubin AST ALT C-Reactive Protein Total Protein Albumin Triglycerides Amylase Lipase Urine WBC (Auto) Vancomycin Trough Crossmatch 12/17/17 12/17/17 12/17/17 02:41 04:28 04:28 WBC 19.1 H RBC 3.50 L Hgb 11.4 L Hct 35.3 L MCV 101 H MCH 33 H MCHC RDW Plt Count 65 L Lymph % (Auto) Eos # Seg Neutrophils % Seg Neuts % (Manual) Lymphocytes % (Manual) Monocytes % (Manual) Nucleated RBC % Seg Neutrophils # Seg Neutrophils # Man Lymphocytes # (Manual) Monocytes # (Manual) Eosinophils # (Manual) APTT POC ABG pH ABG pH POC ABG pCO2 POC ABG pO2 ABG pO2 ABG HCO3 ABG O2 Saturation ABG Base Excess ABG Hemoglobin VBG pH Oxyhemoglobin Sodium 153 H Potassium Chloride 111.2 H Carbon Dioxide 31 H BUN 28 H Creatinine Glucose 248 H POC Glucose 300 H Lactic Acid Calcium Phosphorus Total Bilirubin AST ALT C-Reactive Protein Total Protein Albumin Triglycerides Amylase Lipase Urine WBC (Auto) Vancomycin Trough Crossmatch 12/17/17 12/17/17 12/17/17 05:15 05:38 10:16 WBC RBC Hgb Hct MCV MCH MCHC RDW Plt Count Lymph % (Auto) Eos # Seg Neutrophils % Seg Neuts % (Manual) Lymphocytes % (Manual) Monocytes % (Manual) Nucleated RBC % Seg Neutrophils # Seg Neutrophils # Man Lymphocytes # (Manual) Monocytes # (Manual) Eosinophils # (Manual) APTT POC ABG pH ABG pH POC ABG pCO2 50.3 H POC ABG pO2 120 H ABG pO2 ABG HCO3 ABG O2 Saturation ABG Base Excess ABG Hemoglobin VBG pH Oxyhemoglobin Sodium Potassium Chloride Carbon Dioxide BUN Creatinine Glucose POC Glucose 231 H 196 H Lactic Acid Calcium Phosphorus Total Bilirubin AST ALT C-Reactive Protein Total Protein Albumin Triglycerides Amylase Lipase Urine WBC (Auto) Vancomycin Trough Crossmatch 12/17/17 12/17/17 12/17/17 14:22 18:14 21:35 WBC RBC Hgb Hct MCV MCH MCHC RDW Plt Count Lymph % (Auto) Eos # Seg Neutrophils % Seg Neuts % (Manual) Lymphocytes % (Manual) Monocytes % (Manual) Nucleated RBC % Seg Neutrophils # Seg Neutrophils # Man Lymphocytes # (Manual) Monocytes # (Manual) Eosinophils # (Manual) APTT POC ABG pH ABG pH POC ABG pCO2 POC ABG pO2 ABG pO2 ABG HCO3 ABG O2 Saturation ABG Base Excess ABG Hemoglobin VBG pH Oxyhemoglobin Sodium Potassium Chloride Carbon Dioxide BUN Creatinine Glucose POC Glucose 234 H 215 H 159 H Lactic Acid Calcium Phosphorus Total Bilirubin AST ALT C-Reactive Protein Total Protein Albumin Triglycerides Amylase Lipase Urine WBC (Auto) Vancomycin Trough Crossmatch 12/18/17 12/18/17 12/18/17 00:53 02:58 06:03 WBC RBC Hgb Hct MCV MCH MCHC RDW Plt Count Lymph % (Auto) Eos # Seg Neutrophils % Seg Neuts % (Manual) Lymphocytes % (Manual) Monocytes % (Manual) Nucleated RBC % Seg Neutrophils # Seg Neutrophils # Man Lymphocytes # (Manual) Monocytes # (Manual) Eosinophils # (Manual) APTT POC ABG pH ABG pH POC ABG pCO2 56.4 H POC ABG pO2 46 L ABG pO2 ABG HCO3 ABG O2 Saturation ABG Base Excess ABG Hemoglobin VBG pH Oxyhemoglobin Sodium Potassium Chloride Carbon Dioxide BUN Creatinine Glucose POC Glucose 176 H 143 H Lactic Acid Calcium Phosphorus Total Bilirubin AST ALT C-Reactive Protein Total Protein Albumin Triglycerides Amylase Lipase Urine WBC (Auto) Vancomycin Trough Crossmatch 12/18/17 12/18/17 12/18/17 07:59 09:20 09:20 WBC 27.4 H RBC 3.57 L Hgb 11.4 L Hct MCV 101 H MCH MCHC RDW Plt Count 64 L Lymph % (Auto) Eos # Seg Neutrophils % Seg Neuts % (Manual) Lymphocytes % (Manual) Monocytes % (Manual) Nucleated RBC % Seg Neutrophils # Seg Neutrophils # Man Lymphocytes # (Manual) Monocytes # (Manual) Eosinophils # (Manual) APTT POC ABG pH ABG pH POC ABG pCO2 POC ABG pO2 ABG pO2 ABG HCO3 ABG O2 Saturation ABG Base Excess ABG Hemoglobin VBG pH Oxyhemoglobin Sodium 152 H Potassium Chloride 107.9 H Carbon Dioxide 34 H BUN 23 H Creatinine 0.7 L Glucose 181 H POC Glucose 197 H Lactic Acid Calcium Phosphorus Total Bilirubin AST ALT C-Reactive Protein Total Protein Albumin Triglycerides Amylase Lipase Urine WBC (Auto) Vancomycin Trough Crossmatch 12/18/17 12/18/17 12/18/17 10:22 15:03 18:15 WBC RBC Hgb Hct MCV MCH MCHC RDW Plt Count Lymph % (Auto) Eos # Seg Neutrophils % Seg Neuts % (Manual) Lymphocytes % (Manual) Monocytes % (Manual) Nucleated RBC % Seg Neutrophils # Seg Neutrophils # Man Lymphocytes # (Manual) Monocytes # (Manual) Eosinophils # (Manual) APTT POC ABG pH ABG pH POC ABG pCO2 POC ABG pO2 ABG pO2 ABG HCO3 ABG O2 Saturation ABG Base Excess ABG Hemoglobin VBG pH Oxyhemoglobin Sodium Potassium Chloride Carbon Dioxide BUN Creatinine Glucose POC Glucose 195 H 225 H 238 H Lactic Acid Calcium Phosphorus Total Bilirubin AST ALT C-Reactive Protein Total Protein Albumin Triglycerides Amylase Lipase Urine WBC (Auto) Vancomycin Trough Crossmatch 12/18/17 12/18/17 12/19/17 18:29 21:53 00:18 WBC RBC Hgb Hct MCV MCH MCHC RDW Plt Count Lymph % (Auto) Eos # Seg Neutrophils % Seg Neuts % (Manual) Lymphocytes % (Manual) Monocytes % (Manual) Nucleated RBC % Seg Neutrophils # Seg Neutrophils # Man Lymphocytes # (Manual) Monocytes # (Manual) Eosinophils # (Manual) APTT POC ABG pH 7.476 H ABG pH POC ABG pCO2 50.4 H POC ABG pO2 158 H ABG pO2 ABG HCO3 ABG O2 Saturation ABG Base Excess ABG Hemoglobin VBG pH Oxyhemoglobin Sodium Potassium Chloride Carbon Dioxide BUN Creatinine Glucose POC Glucose 231 H 263 H Lactic Acid Calcium Phosphorus Total Bilirubin AST ALT C-Reactive Protein Total Protein Albumin Triglycerides Amylase Lipase Urine WBC (Auto) Vancomycin Trough Crossmatch 12/19/17 12/19/17 12/19/17 02:09 04:07 04:07 WBC 25.9 H RBC 3.25 L Hgb 10.6 L Hct 32.8 L MCV 101 H MCH 33 H MCHC RDW Plt Count 67 L Lymph % (Auto) Eos # Seg Neutrophils % Seg Neuts % (Manual) Lymphocytes % (Manual) 4.0 L Monocytes % (Manual) Nucleated RBC % Seg Neutrophils # Seg Neutrophils # Man 14.8 H Lymphocytes # (Manual) 1.0 L Monocytes # (Manual) Eosinophils # (Manual) APTT POC ABG pH ABG pH POC ABG pCO2 POC ABG pO2 ABG pO2 ABG HCO3 ABG O2 Saturation ABG Base Excess ABG Hemoglobin VBG pH Oxyhemoglobin Sodium 148 H Potassium Chloride Carbon Dioxide BUN 31 H Creatinine Glucose 314 H POC Glucose 300 H Lactic Acid Calcium 8.1 L Phosphorus Total Bilirubin AST ALT C-Reactive Protein Total Protein Albumin Triglycerides Amylase Lipase Urine WBC (Auto) Vancomycin Trough Crossmatch 12/19/17 12/19/17 12/19/17 05:15 05:41 07:57 WBC RBC Hgb Hct MCV MCH MCHC RDW Plt Count Lymph % (Auto) Eos # Seg Neutrophils % Seg Neuts % (Manual) Lymphocytes % (Manual) Monocytes % (Manual) Nucleated RBC % Seg Neutrophils # Seg Neutrophils # Man Lymphocytes # (Manual) Monocytes # (Manual) Eosinophils # (Manual) APTT POC ABG pH 7.507 H ABG pH POC ABG pCO2 POC ABG pO2 ABG pO2 ABG HCO3 ABG O2 Saturation ABG Base Excess ABG Hemoglobin VBG pH Oxyhemoglobin Sodium Potassium Chloride Carbon Dioxide BUN Creatinine Glucose POC Glucose 331 H 307 H Lactic Acid Calcium Phosphorus Total Bilirubin AST ALT C-Reactive Protein Total Protein Albumin Triglycerides Amylase Lipase Urine WBC (Auto) Vancomycin Trough Crossmatch 12/19/17 12/19/17 12/19/17 10:21 14:48 17:59 WBC RBC Hgb Hct MCV MCH MCHC RDW Plt Count Lymph % (Auto) Eos # Seg Neutrophils % Seg Neuts % (Manual) Lymphocytes % (Manual) Monocytes % (Manual) Nucleated RBC % Seg Neutrophils # Seg Neutrophils # Man Lymphocytes # (Manual) Monocytes # (Manual) Eosinophils # (Manual) APTT POC ABG pH ABG pH POC ABG pCO2 POC ABG pO2 ABG pO2 ABG HCO3 ABG O2 Saturation ABG Base Excess ABG Hemoglobin VBG pH Oxyhemoglobin Sodium Potassium Chloride Carbon Dioxide BUN Creatinine Glucose POC Glucose 358 H 327 H 355 H Lactic Acid Calcium Phosphorus Total Bilirubin AST ALT C-Reactive Protein Total Protein Albumin Triglycerides Amylase Lipase Urine WBC (Auto) Vancomycin Trough Crossmatch 12/19/17 12/20/17 12/20/17 21:38 02:21 03:42 WBC RBC Hgb Hct MCV MCH MCHC RDW Plt Count Lymph % (Auto) Eos # Seg Neutrophils % Seg Neuts % (Manual) Lymphocytes % (Manual) Monocytes % (Manual) Nucleated RBC % Seg Neutrophils # Seg Neutrophils # Man Lymphocytes # (Manual) Monocytes # (Manual) Eosinophils # (Manual) APTT POC ABG pH 7.494 H ABG pH POC ABG pCO2 POC ABG pO2 ABG pO2 ABG HCO3 ABG O2 Saturation ABG Base Excess ABG Hemoglobin VBG pH Oxyhemoglobin Sodium Potassium Chloride Carbon Dioxide BUN Creatinine Glucose POC Glucose 329 H 354 H Lactic Acid Calcium Phosphorus Total Bilirubin AST ALT C-Reactive Protein Total Protein Albumin Triglycerides Amylase Lipase Urine WBC (Auto) Vancomycin Trough Crossmatch 12/20/17 12/20/17 12/20/17 04:08 04:08 04:08 WBC 22.7 H RBC 3.26 L Hgb 10.6 L Hct 32.9 L MCV 101 H MCH 33 H MCHC RDW Plt Count 78 L Lymph % (Auto) Eos # Seg Neutrophils % Seg Neuts % (Manual) 80.0 H Lymphocytes % (Manual) 6.0 L Monocytes % (Manual) Nucleated RBC % Seg Neutrophils # Seg Neutrophils # Man 18.2 H Lymphocytes # (Manual) Monocytes # (Manual) Eosinophils # (Manual) APTT POC ABG pH ABG pH POC ABG pCO2 POC ABG pO2 ABG pO2 ABG HCO3 ABG O2 Saturation ABG Base Excess ABG Hemoglobin VBG pH Oxyhemoglobin Sodium Potassium Chloride Carbon Dioxide 31 H BUN 30 H Creatinine 0.6 L Glucose 365 H POC Glucose Lactic Acid Calcium Phosphorus Total Bilirubin AST ALT C-Reactive Protein Total Protein Albumin Triglycerides 981 H Amylase Lipase Urine WBC (Auto) Vancomycin Trough Crossmatch 12/20/17 12/20/17 12/20/17 05:15 10:47 13:40 WBC RBC Hgb Hct MCV MCH MCHC RDW Plt Count Lymph % (Auto) Eos # Seg Neutrophils % Seg Neuts % (Manual) Lymphocytes % (Manual) Monocytes % (Manual) Nucleated RBC % Seg Neutrophils # Seg Neutrophils # Man Lymphocytes # (Manual) Monocytes # (Manual) Eosinophils # (Manual) APTT POC ABG pH ABG pH POC ABG pCO2 POC ABG pO2 ABG pO2 ABG HCO3 ABG O2 Saturation ABG Base Excess ABG Hemoglobin VBG pH Oxyhemoglobin Sodium Potassium Chloride Carbon Dioxide BUN Creatinine Glucose POC Glucose 342 H 330 H Lactic Acid Calcium Phosphorus Total Bilirubin AST ALT C-Reactive Protein 7.10 H Total Protein Albumin Triglycerides Amylase Lipase Urine WBC (Auto) Vancomycin Trough Crossmatch 12/20/17 12/20/17 12/20/17 13:40 14:52 16:55 WBC RBC Hgb Hct MCV MCH MCHC RDW Plt Count Lymph % (Auto) Eos # Seg Neutrophils % Seg Neuts % (Manual) Lymphocytes % (Manual) Monocytes % (Manual) Nucleated RBC % Seg Neutrophils # Seg Neutrophils # Man Lymphocytes # (Manual) Monocytes # (Manual) Eosinophils # (Manual) APTT POC ABG pH 7.484 H ABG pH POC ABG pCO2 POC ABG pO2 ABG pO2 ABG HCO3 ABG O2 Saturation ABG Base Excess ABG Hemoglobin VBG pH Oxyhemoglobin Sodium Potassium Chloride Carbon Dioxide BUN Creatinine Glucose POC Glucose 293 H Lactic Acid Calcium Phosphorus Total Bilirubin AST ALT C-Reactive Protein Total Protein Albumin Triglycerides 1042 H Amylase Lipase Urine WBC (Auto) Vancomycin Trough Crossmatch 12/20/17 12/20/17 12/21/17 18:00 21:58 02:05 WBC RBC Hgb Hct MCV MCH MCHC RDW Plt Count Lymph % (Auto) Eos # Seg Neutrophils % Seg Neuts % (Manual) Lymphocytes % (Manual) Monocytes % (Manual) Nucleated RBC % Seg Neutrophils # Seg Neutrophils # Man Lymphocytes # (Manual) Monocytes # (Manual) Eosinophils # (Manual) APTT POC ABG pH ABG pH POC ABG pCO2 POC ABG pO2 ABG pO2 ABG HCO3 ABG O2 Saturation ABG Base Excess ABG Hemoglobin VBG pH Oxyhemoglobin Sodium Potassium Chloride Carbon Dioxide BUN Creatinine Glucose POC Glucose 268 H 272 H 229 H Lactic Acid Calcium Phosphorus Total Bilirubin AST ALT C-Reactive Protein Total Protein Albumin Triglycerides Amylase Lipase Urine WBC (Auto) Vancomycin Trough Crossmatch 12/21/17 12/21/17 12/21/17 03:59 06:23 08:57 WBC RBC Hgb Hct MCV MCH MCHC RDW Plt Count Lymph % (Auto) Eos # Seg Neutrophils % Seg Neuts % (Manual) Lymphocytes % (Manual) Monocytes % (Manual) Nucleated RBC % Seg Neutrophils # Seg Neutrophils # Man Lymphocytes # (Manual) Monocytes # (Manual) Eosinophils # (Manual) APTT POC ABG pH 7.474 H ABG pH POC ABG pCO2 POC ABG pO2 71 L ABG pO2 ABG HCO3 ABG O2 Saturation ABG Base Excess ABG Hemoglobin VBG pH Oxyhemoglobin Sodium Potassium Chloride Carbon Dioxide BUN Creatinine Glucose POC Glucose 182 H 217 H Lactic Acid Calcium Phosphorus Total Bilirubin AST ALT C-Reactive Protein Total Protein Albumin Triglycerides Amylase Lipase Urine WBC (Auto) Vancomycin Trough Crossmatch 12/21/17 12/21/17 12/21/17 13:59 18:00 21:20 WBC RBC Hgb Hct MCV MCH MCHC RDW Plt Count Lymph % (Auto) Eos # Seg Neutrophils % Seg Neuts % (Manual) Lymphocytes % (Manual) Monocytes % (Manual) Nucleated RBC % Seg Neutrophils # Seg Neutrophils # Man Lymphocytes # (Manual) Monocytes # (Manual) Eosinophils # (Manual) APTT POC ABG pH ABG pH POC ABG pCO2 POC ABG pO2 ABG pO2 ABG HCO3 ABG O2 Saturation ABG Base Excess ABG Hemoglobin VBG pH Oxyhemoglobin Sodium Potassium Chloride Carbon Dioxide BUN Creatinine Glucose POC Glucose 185 H 176 H 187 H Lactic Acid Calcium Phosphorus Total Bilirubin AST ALT C-Reactive Protein Total Protein Albumin Triglycerides Amylase Lipase Urine WBC (Auto) Vancomycin Trough Crossmatch 12/21/17 12/22/17 12/22/17 23:48 04:39 05:30 WBC RBC Hgb Hct MCV MCH MCHC RDW Plt Count Lymph % (Auto) Eos # Seg Neutrophils % Seg Neuts % (Manual) Lymphocytes % (Manual) Monocytes % (Manual) Nucleated RBC % Seg Neutrophils # Seg Neutrophils # Man Lymphocytes # (Manual) Monocytes # (Manual) Eosinophils # (Manual) APTT POC ABG pH 7.528 H ABG pH POC ABG pCO2 POC ABG pO2 63 L ABG pO2 ABG HCO3 ABG O2 Saturation ABG Base Excess ABG Hemoglobin VBG pH Oxyhemoglobin Sodium Potassium Chloride Carbon Dioxide BUN Creatinine Glucose POC Glucose 126 H 117 H Lactic Acid Calcium Phosphorus Total Bilirubin AST ALT C-Reactive Protein Total Protein Albumin Triglycerides Amylase Lipase Urine WBC (Auto) Vancomycin Trough Crossmatch 12/22/17 12/22/17 12/22/17 09:12 10:34 10:34 WBC 29.5 H RBC 3.44 L Hgb 11.2 L Hct 34.2 L MCV 99 H MCH 33 H MCHC RDW 13.1 L Plt Count 97 L Lymph % (Auto) Eos # Seg Neutrophils % Seg Neuts % (Manual) 88.0 H Lymphocytes % (Manual) 5.0 L Monocytes % (Manual) Nucleated RBC % Seg Neutrophils # Seg Neutrophils # Man 26.0 H Lymphocytes # (Manual) Monocytes # (Manual) Eosinophils # (Manual) APTT POC ABG pH ABG pH POC ABG pCO2 POC ABG pO2 ABG pO2 ABG HCO3 ABG O2 Saturation ABG Base Excess ABG Hemoglobin VBG pH Oxyhemoglobin Sodium 146 H Potassium 3.1 L Chloride Carbon Dioxide BUN 25 H Creatinine 0.7 L Glucose 146 H POC Glucose 168 H Lactic Acid Calcium 8.1 L Phosphorus Total Bilirubin AST ALT C-Reactive Protein Total Protein Albumin Triglycerides Amylase Lipase Urine WBC (Auto) Vancomycin Trough Crossmatch 12/22/17 12/22/17 12/22/17 14:51 17:21 21:43 WBC RBC Hgb Hct MCV MCH MCHC RDW Plt Count Lymph % (Auto) Eos # Seg Neutrophils % Seg Neuts % (Manual) Lymphocytes % (Manual) Monocytes % (Manual) Nucleated RBC % Seg Neutrophils # Seg Neutrophils # Man Lymphocytes # (Manual) Monocytes # (Manual) Eosinophils # (Manual) APTT POC ABG pH ABG pH POC ABG pCO2 POC ABG pO2 ABG pO2 ABG HCO3 ABG O2 Saturation ABG Base Excess ABG Hemoglobin VBG pH Oxyhemoglobin Sodium Potassium Chloride Carbon Dioxide BUN Creatinine Glucose POC Glucose 125 H 110 H 153 H Lactic Acid Calcium Phosphorus Total Bilirubin AST ALT C-Reactive Protein Total Protein Albumin Triglycerides Amylase Lipase Urine WBC (Auto) Vancomycin Trough Crossmatch 12/23/17 12/23/17 12/23/17 04:33 05:28 09:25 WBC 31.4 H RBC 3.05 L Hgb 9.8 L Hct 30.2 L MCV 99 H MCH MCHC RDW 12.9 L Plt Count 101 L Lymph % (Auto) Eos # Seg Neutrophils % Seg Neuts % (Manual) 97 H Lymphocytes % (Manual) 2 L Monocytes % (Manual) Nucleated RBC % Seg Neutrophils # Seg Neutrophils # Man 31.1 H Lymphocytes # (Manual) 0.5 L Monocytes # (Manual) Eosinophils # (Manual) APTT POC ABG pH 7.573 H ABG pH POC ABG pCO2 31.0 L POC ABG pO2 63 L ABG pO2 ABG HCO3 ABG O2 Saturation ABG Base Excess ABG Hemoglobin VBG pH Oxyhemoglobin Sodium Potassium Chloride Carbon Dioxide BUN Creatinine Glucose POC Glucose 124 H Lactic Acid Calcium Phosphorus Total Bilirubin AST ALT C-Reactive Protein Total Protein Albumin Triglycerides Amylase Lipase Urine WBC (Auto) Vancomycin Trough Crossmatch 12/23/17 12/23/17 12/23/17 09:25 10:08 14:20 WBC RBC Hgb Hct MCV MCH MCHC RDW Plt Count Lymph % (Auto) Eos # Seg Neutrophils % Seg Neuts % (Manual) Lymphocytes % (Manual) Monocytes % (Manual) Nucleated RBC % Seg Neutrophils # Seg Neutrophils # Man Lymphocytes # (Manual) Monocytes # (Manual) Eosinophils # (Manual) APTT POC ABG pH ABG pH POC ABG pCO2 POC ABG pO2 ABG pO2 ABG HCO3 ABG O2 Saturation ABG Base Excess ABG Hemoglobin VBG pH Oxyhemoglobin Sodium Potassium 3.1 L Chloride Carbon Dioxide BUN Creatinine 0.6 L Glucose 169 H POC Glucose 171 H 211 H Lactic Acid Calcium 7.9 L Phosphorus Total Bilirubin AST ALT C-Reactive Protein Total Protein Albumin Triglycerides Amylase Lipase Urine WBC (Auto) Vancomycin Trough Crossmatch 12/23/17 12/23/17 12/24/17 18:59 21:49 01:47 WBC RBC Hgb Hct MCV MCH MCHC RDW Plt Count Lymph % (Auto) Eos # Seg Neutrophils % Seg Neuts % (Manual) Lymphocytes % (Manual) Monocytes % (Manual) Nucleated RBC % Seg Neutrophils # Seg Neutrophils # Man Lymphocytes # (Manual) Monocytes # (Manual) Eosinophils # (Manual) APTT POC ABG pH ABG pH POC ABG pCO2 POC ABG pO2 ABG pO2 ABG HCO3 ABG O2 Saturation ABG Base Excess ABG Hemoglobin VBG pH Oxyhemoglobin Sodium Potassium Chloride Carbon Dioxide BUN Creatinine Glucose POC Glucose 175 H 146 H 143 H Lactic Acid Calcium Phosphorus Total Bilirubin AST ALT C-Reactive Protein Total Protein Albumin Triglycerides Amylase Lipase Urine WBC (Auto) Vancomycin Trough Crossmatch 12/24/17 12/24/17 12/24/17 05:40 10:12 13:12 WBC RBC Hgb Hct MCV MCH MCHC RDW Plt Count Lymph % (Auto) Eos # Seg Neutrophils % Seg Neuts % (Manual) Lymphocytes % (Manual) Monocytes % (Manual) Nucleated RBC % Seg Neutrophils # Seg Neutrophils # Man Lymphocytes # (Manual) Monocytes # (Manual) Eosinophils # (Manual) APTT POC ABG pH 7.558 H ABG pH POC ABG pCO2 27.6 L POC ABG pO2 71 L ABG pO2 ABG HCO3 ABG O2 Saturation ABG Base Excess ABG Hemoglobin VBG pH Oxyhemoglobin Sodium Potassium Chloride Carbon Dioxide BUN Creatinine Glucose POC Glucose 118 H 111 H Lactic Acid Calcium Phosphorus Total Bilirubin AST ALT C-Reactive Protein Total Protein Albumin Triglycerides Amylase Lipase Urine WBC (Auto) Vancomycin Trough Crossmatch 12/24/17 12/24/17 12/24/17 16:26 20:44 21:49 WBC RBC Hgb Hct MCV MCH MCHC RDW Plt Count Lymph % (Auto) Eos # Seg Neutrophils % Seg Neuts % (Manual) Lymphocytes % (Manual) Monocytes % (Manual) Nucleated RBC % Seg Neutrophils # Seg Neutrophils # Man Lymphocytes # (Manual) Monocytes # (Manual) Eosinophils # (Manual) APTT POC ABG pH ABG pH POC ABG pCO2 POC ABG pO2 ABG pO2 ABG HCO3 ABG O2 Saturation ABG Base Excess ABG Hemoglobin VBG pH Oxyhemoglobin Sodium Potassium Chloride Carbon Dioxide BUN Creatinine Glucose POC Glucose 113 H 124 H 115 H Lactic Acid Calcium Phosphorus Total Bilirubin AST ALT C-Reactive Protein Total Protein Albumin Triglycerides Amylase Lipase Urine WBC (Auto) Vancomycin Trough Crossmatch 12/24/17 12/25/17 12/25/17 Unknown 02:26 03:38 WBC RBC Hgb Hct MCV MCH MCHC RDW Plt Count Lymph % (Auto) Eos # Seg Neutrophils % Seg Neuts % (Manual) Lymphocytes % (Manual) Monocytes % (Manual) Nucleated RBC % Seg Neutrophils # Seg Neutrophils # Man Lymphocytes # (Manual) Monocytes # (Manual) Eosinophils # (Manual) APTT POC ABG pH 7.503 H ABG pH POC ABG pCO2 POC ABG pO2 66 L ABG pO2 ABG HCO3 ABG O2 Saturation ABG Base Excess ABG Hemoglobin VBG pH Oxyhemoglobin Sodium Potassium 3.0 L Chloride Carbon Dioxide BUN Creatinine 0.5 L Glucose 166 H POC Glucose 106 H Lactic Acid Calcium 7.8 L Phosphorus Total Bilirubin AST ALT C-Reactive Protein Total Protein Albumin Triglycerides Amylase Lipase Urine WBC (Auto) Vancomycin Trough Crossmatch 12/25/17 12/25/17 12/25/17 04:58 12:58 15:06 WBC RBC Hgb Hct MCV MCH MCHC RDW Plt Count Lymph % (Auto) Eos # Seg Neutrophils % Seg Neuts % (Manual) Lymphocytes % (Manual) Monocytes % (Manual) Nucleated RBC % Seg Neutrophils # Seg Neutrophils # Man Lymphocytes # (Manual) Monocytes # (Manual) Eosinophils # (Manual) APTT POC ABG pH ABG pH POC ABG pCO2 POC ABG pO2 ABG pO2 ABG HCO3 ABG O2 Saturation ABG Base Excess ABG Hemoglobin VBG pH Oxyhemoglobin Sodium Potassium Chloride Carbon Dioxide BUN Creatinine Glucose POC Glucose 113 H 118 H Lactic Acid Calcium Phosphorus Total Bilirubin AST ALT C-Reactive Protein Total Protein Albumin Triglycerides Amylase Lipase Urine WBC (Auto) Vancomycin Trough 22.5 H Crossmatch 12/25/17 12/25/17 12/25/17 17:59 21:33 Unknown WBC 20.5 H RBC 2.75 L Hgb 9.1 L Hct 27.1 L MCV 99 H MCH 33 H MCHC RDW Plt Count 126 L Lymph % (Auto) Eos # Seg Neutrophils % Seg Neuts % (Manual) 89.0 H Lymphocytes % (Manual) 6.0 L Monocytes % (Manual) Nucleated RBC % Seg Neutrophils # Seg Neutrophils # Man 18.2 H Lymphocytes # (Manual) Monocytes # (Manual) Eosinophils # (Manual) APTT POC ABG pH ABG pH POC ABG pCO2 POC ABG pO2 ABG pO2 ABG HCO3 ABG O2 Saturation ABG Base Excess ABG Hemoglobin VBG pH Oxyhemoglobin Sodium Potassium Chloride Carbon Dioxide BUN Creatinine Glucose POC Glucose 145 H 167 H Lactic Acid Calcium Phosphorus Total Bilirubin AST ALT C-Reactive Protein Total Protein Albumin Triglycerides Amylase Lipase Urine WBC (Auto) Vancomycin Trough Crossmatch 12/25/17 12/26/17 12/26/17 Unknown 02:26 05:29 WBC RBC Hgb Hct MCV MCH MCHC RDW Plt Count Lymph % (Auto) Eos # Seg Neutrophils % Seg Neuts % (Manual) Lymphocytes % (Manual) Monocytes % (Manual) Nucleated RBC % Seg Neutrophils # Seg Neutrophils # Man Lymphocytes # (Manual) Monocytes # (Manual) Eosinophils # (Manual) APTT POC ABG pH ABG pH POC ABG pCO2 POC ABG pO2 ABG pO2 ABG HCO3 ABG O2 Saturation ABG Base Excess ABG Hemoglobin VBG pH Oxyhemoglobin Sodium Potassium 2.8 L* Chloride Carbon Dioxide BUN Creatinine 0.6 L Glucose POC Glucose 167 H 216 H Lactic Acid Calcium 7.4 L Phosphorus Total Bilirubin AST ALT C-Reactive Protein Total Protein Albumin Triglycerides Amylase Lipase Urine WBC (Auto) Vancomycin Trough Crossmatch 12/26/17 12/26/17 12/26/17 10:21 14:30 18:35 WBC RBC Hgb Hct MCV MCH MCHC RDW Plt Count Lymph % (Auto) Eos # Seg Neutrophils % Seg Neuts % (Manual) Lymphocytes % (Manual) Monocytes % (Manual) Nucleated RBC % Seg Neutrophils # Seg Neutrophils # Man Lymphocytes # (Manual) Monocytes # (Manual) Eosinophils # (Manual) APTT POC ABG pH ABG pH POC ABG pCO2 POC ABG pO2 ABG pO2 ABG HCO3 ABG O2 Saturation ABG Base Excess ABG Hemoglobin VBG pH Oxyhemoglobin Sodium Potassium Chloride Carbon Dioxide BUN Creatinine Glucose POC Glucose 164 H 157 H 146 H Lactic Acid Calcium Phosphorus Total Bilirubin AST ALT C-Reactive Protein Total Protein Albumin Triglycerides Amylase Lipase Urine WBC (Auto) Vancomycin Trough Crossmatch 12/26/17 12/26/17 12/27/17 21:21 Unknown 01:54 WBC RBC Hgb Hct MCV MCH MCHC RDW Plt Count Lymph % (Auto) Eos # Seg Neutrophils % Seg Neuts % (Manual) Lymphocytes % (Manual) Monocytes % (Manual) Nucleated RBC % Seg Neutrophils # Seg Neutrophils # Man Lymphocytes # (Manual) Monocytes # (Manual) Eosinophils # (Manual) APTT POC ABG pH ABG pH POC ABG pCO2 POC ABG pO2 ABG pO2 ABG HCO3 ABG O2 Saturation ABG Base Excess ABG Hemoglobin VBG pH Oxyhemoglobin Sodium Potassium 3.0 L Chloride Carbon Dioxide BUN Creatinine 0.5 L Glucose 166 H POC Glucose 132 H 157 H Lactic Acid Calcium 7.8 L Phosphorus Total Bilirubin AST ALT C-Reactive Protein Total Protein Albumin Triglycerides Amylase Lipase Urine WBC (Auto) Vancomycin Trough Crossmatch 12/27/17 12/27/17 12/27/17 05:20 05:20 05:44 WBC 26.4 H RBC 2.83 L Hgb 9.3 L Hct 27.6 L MCV 98 H MCH 33 H MCHC RDW Plt Count Lymph % (Auto) Eos # Seg Neutrophils % Seg Neuts % (Manual) 85.0 H Lymphocytes % (Manual) 5.0 L Monocytes % (Manual) Nucleated RBC % Seg Neutrophils # Seg Neutrophils # Man 22.4 H Lymphocytes # (Manual) Monocytes # (Manual) Eosinophils # (Manual) 0.5 H APTT POC ABG pH ABG pH POC ABG pCO2 POC ABG pO2 ABG pO2 ABG HCO3 ABG O2 Saturation ABG Base Excess ABG Hemoglobin VBG pH Oxyhemoglobin Sodium Potassium 2.3 L* D Chloride Carbon Dioxide BUN 7 L Creatinine 0.6 L Glucose 123 H POC Glucose 128 H Lactic Acid Calcium 8.1 L Phosphorus Total Bilirubin AST ALT C-Reactive Protein Total Protein Albumin Triglycerides Amylase Lipase Urine WBC (Auto) Vancomycin Trough Crossmatch 12/27/17 12/27/17 12/27/17 10:04 14:44 15:30 WBC RBC Hgb Hct MCV MCH MCHC RDW Plt Count Lymph % (Auto) Eos # Seg Neutrophils % Seg Neuts % (Manual) Lymphocytes % (Manual) Monocytes % (Manual) Nucleated RBC % Seg Neutrophils # Seg Neutrophils # Man Lymphocytes # (Manual) Monocytes # (Manual) Eosinophils # (Manual) APTT POC ABG pH ABG pH POC ABG pCO2 POC ABG pO2 ABG pO2 ABG HCO3 ABG O2 Saturation ABG Base Excess ABG Hemoglobin VBG pH Oxyhemoglobin Sodium Potassium 3.1 L D Chloride Carbon Dioxide BUN Creatinine Glucose POC Glucose 115 H 128 H Lactic Acid Calcium Phosphorus Total Bilirubin AST ALT C-Reactive Protein Total Protein Albumin Triglycerides Amylase Lipase Urine WBC (Auto) Vancomycin Trough Crossmatch 12/28/17 12/28/17 12/28/17 00:39 02:13 05:17 WBC RBC Hgb Hct MCV MCH MCHC RDW Plt Count Lymph % (Auto) Eos # Seg Neutrophils % Seg Neuts % (Manual) Lymphocytes % (Manual) Monocytes % (Manual) Nucleated RBC % Seg Neutrophils # Seg Neutrophils # Man Lymphocytes # (Manual) Monocytes # (Manual) Eosinophils # (Manual) APTT POC ABG pH ABG pH 7.497 H POC ABG pCO2 POC ABG pO2 ABG pO2 71.4 L ABG HCO3 29.9 H ABG O2 Saturation ABG Base Excess 6.2 H ABG Hemoglobin 7.9 L VBG pH Oxyhemoglobin 94.9 L Sodium Potassium Chloride Carbon Dioxide BUN Creatinine Glucose POC Glucose 112 H 108 H Lactic Acid Calcium Phosphorus Total Bilirubin AST ALT C-Reactive Protein Total Protein Albumin Triglycerides Amylase Lipase Urine WBC (Auto) Vancomycin Trough Crossmatch 12/28/17 12/28/17 12/28/17 08:47 08:47 09:10 WBC 28.1 H RBC 2.76 L Hgb 9.1 L Hct 27.0 L MCV 98 H MCH 33 H MCHC RDW Plt Count Lymph % (Auto) Eos # Seg Neutrophils % Seg Neuts % (Manual) Lymphocytes % (Manual) Monocytes % (Manual) Nucleated RBC % Seg Neutrophils # Seg Neutrophils # Man Lymphocytes # (Manual) Monocytes # (Manual) Eosinophils # (Manual) APTT POC ABG pH ABG pH POC ABG pCO2 POC ABG pO2 ABG pO2 ABG HCO3 ABG O2 Saturation ABG Base Excess ABG Hemoglobin VBG pH Oxyhemoglobin Sodium Potassium 2.2 L* D Chloride Carbon Dioxide BUN 5 L Creatinine 0.5 L Glucose 106 H POC Glucose Lactic Acid Calcium 8.3 L Phosphorus 2.20 L Total Bilirubin AST ALT C-Reactive Protein Total Protein Albumin Triglycerides Amylase Lipase Urine WBC (Auto) Vancomycin Trough Crossmatch 12/28/17 12/28/17 12/28/17 13:28 14:22 18:48 WBC RBC Hgb Hct MCV MCH MCHC RDW Plt Count Lymph % (Auto) Eos # Seg Neutrophils % Seg Neuts % (Manual) Lymphocytes % (Manual) Monocytes % (Manual) Nucleated RBC % Seg Neutrophils # Seg Neutrophils # Man Lymphocytes # (Manual) Monocytes # (Manual) Eosinophils # (Manual) APTT POC ABG pH ABG pH 7.476 H POC ABG pCO2 POC ABG pO2 ABG pO2 167.7 H ABG HCO3 30.9 H ABG O2 Saturation 99.1 H ABG Base Excess 6.7 H ABG Hemoglobin 8.5 L VBG pH Oxyhemoglobin Sodium Potassium Chloride Carbon Dioxide BUN Creatinine Glucose POC Glucose 141 H 129 H Lactic Acid Calcium Phosphorus Total Bilirubin AST ALT C-Reactive Protein Total Protein Albumin Triglycerides Amylase Lipase Urine WBC (Auto) Vancomycin Trough Crossmatch 12/28/17 12/29/17 12/29/17 21:22 02:45 05:11 WBC RBC Hgb Hct MCV MCH MCHC RDW Plt Count Lymph % (Auto) Eos # Seg Neutrophils % Seg Neuts % (Manual) Lymphocytes % (Manual) Monocytes % (Manual) Nucleated RBC % Seg Neutrophils # Seg Neutrophils # Man Lymphocytes # (Manual) Monocytes # (Manual) Eosinophils # (Manual) APTT POC ABG pH ABG pH POC ABG pCO2 POC ABG pO2 ABG pO2 ABG HCO3 ABG O2 Saturation ABG Base Excess ABG Hemoglobin VBG pH Oxyhemoglobin Sodium Potassium Chloride Carbon Dioxide BUN Creatinine Glucose POC Glucose 123 H 138 H 138 H Lactic Acid Calcium Phosphorus Total Bilirubin AST ALT C-Reactive Protein Total Protein Albumin Triglycerides Amylase Lipase Urine WBC (Auto) Vancomycin Trough Crossmatch 12/29/17 12/29/17 12/29/17 05:50 08:04 08:04 WBC 20.8 H RBC 2.26 L Hgb 7.5 L Hct 22.7 L MCV 100 H MCH 33 H MCHC RDW Plt Count Lymph % (Auto) Eos # Seg Neutrophils % Seg Neuts % (Manual) 93.0 H Lymphocytes % (Manual) 2.0 L Monocytes % (Manual) Nucleated RBC % Seg Neutrophils # Seg Neutrophils # Man 19.3 H Lymphocytes # (Manual) 0.4 L Monocytes # (Manual) Eosinophils # (Manual) 0.7 H APTT POC ABG pH ABG pH 7.467 H POC ABG pCO2 POC ABG pO2 ABG pO2 ABG HCO3 28.2 H ABG O2 Saturation ABG Base Excess 4.0 H ABG Hemoglobin < 5.1 L VBG pH Oxyhemoglobin Sodium Potassium 3.0 L D Chloride Carbon Dioxide BUN Creatinine 0.5 L Glucose 147 H POC Glucose Lactic Acid Calcium 7.8 L Phosphorus Total Bilirubin AST ALT C-Reactive Protein Total Protein 5.6 L Albumin 2.4 L Triglycerides Amylase Lipase Urine WBC (Auto) Vancomycin Trough Crossmatch 12/29/17 12/29/17 12/29/17 08:20 10:59 14:09 WBC RBC Hgb Hct MCV MCH MCHC RDW Plt Count Lymph % (Auto) Eos # Seg Neutrophils % Seg Neuts % (Manual) Lymphocytes % (Manual) Monocytes % (Manual) Nucleated RBC % Seg Neutrophils # Seg Neutrophils # Man Lymphocytes # (Manual) Monocytes # (Manual) Eosinophils # (Manual) APTT POC ABG pH ABG pH POC ABG pCO2 POC ABG pO2 ABG pO2 ABG HCO3 ABG O2 Saturation ABG Base Excess ABG Hemoglobin VBG pH Oxyhemoglobin Sodium Potassium Chloride Carbon Dioxide BUN Creatinine Glucose POC Glucose 153 H 186 H 183 H Lactic Acid Calcium Phosphorus Total Bilirubin AST ALT C-Reactive Protein Total Protein Albumin Triglycerides Amylase Lipase Urine WBC (Auto) Vancomycin Trough Crossmatch 12/29/17 12/29/17 12/29/17 18:03 22:05 22:56 WBC RBC Hgb Hct MCV MCH MCHC RDW Plt Count Lymph % (Auto) Eos # Seg Neutrophils % Seg Neuts % (Manual) Lymphocytes % (Manual) Monocytes % (Manual) Nucleated RBC % Seg Neutrophils # Seg Neutrophils # Man Lymphocytes # (Manual) Monocytes # (Manual) Eosinophils # (Manual) APTT POC ABG pH ABG pH POC ABG pCO2 POC ABG pO2 ABG pO2 ABG HCO3 ABG O2 Saturation ABG Base Excess ABG Hemoglobin VBG pH Oxyhemoglobin Sodium Potassium Chloride Carbon Dioxide BUN Creatinine Glucose POC Glucose 159 H 146 H 179 H Lactic Acid Calcium Phosphorus Total Bilirubin AST ALT C-Reactive Protein Total Protein Albumin Triglycerides Amylase Lipase Urine WBC (Auto) Vancomycin Trough Crossmatch 12/30/17 12/30/17 12/30/17 02:03 04:50 04:50 WBC 18.3 H RBC 2.22 L Hgb 7.4 L Hct 23.0 L MCV 104 H MCH 33 H MCHC RDW Plt Count 137 L Lymph % (Auto) 9.0 L Eos # 0.5 H Seg Neutrophils % 84.9 H Seg Neuts % (Manual) Lymphocytes % (Manual) Monocytes % (Manual) Nucleated RBC % Seg Neutrophils # 15.6 H Seg Neutrophils # Man Lymphocytes # (Manual) Monocytes # (Manual) Eosinophils # (Manual) APTT POC ABG pH ABG pH POC ABG pCO2 POC ABG pO2 ABG pO2 ABG HCO3 ABG O2 Saturation ABG Base Excess ABG Hemoglobin VBG pH Oxyhemoglobin Sodium 147 H Potassium 3.1 L D Chloride 107.5 H Carbon Dioxide BUN Creatinine 0.5 L Glucose 120 H POC Glucose 118 H Lactic Acid Calcium 7.4 L Phosphorus Total Bilirubin AST ALT C-Reactive Protein Total Protein Albumin Triglycerides Amylase Lipase Urine WBC (Auto) Vancomycin Trough Crossmatch 12/30/17 12/30/17 12/30/17 05:04 13:53 17:33 WBC RBC Hgb Hct MCV MCH MCHC RDW Plt Count Lymph % (Auto) Eos # Seg Neutrophils % Seg Neuts % (Manual) Lymphocytes % (Manual) Monocytes % (Manual) Nucleated RBC % Seg Neutrophils # Seg Neutrophils # Man Lymphocytes # (Manual) Monocytes # (Manual) Eosinophils # (Manual) APTT POC ABG pH ABG pH POC ABG pCO2 POC ABG pO2 ABG pO2 ABG HCO3 ABG O2 Saturation ABG Base Excess ABG Hemoglobin VBG pH Oxyhemoglobin Sodium Potassium Chloride Carbon Dioxide BUN Creatinine Glucose POC Glucose 150 H 113 H 145 H Lactic Acid Calcium Phosphorus Total Bilirubin AST ALT C-Reactive Protein Total Protein Albumin Triglycerides Amylase Lipase Urine WBC (Auto) Vancomycin Trough Crossmatch 12/31/17 12/31/17 12/31/17 01:54 03:15 03:15 WBC 17.1 H RBC 2.08 L Hgb 6.9 L Hct 20.6 L MCV 99 H MCH 33 H MCHC RDW 13.1 L Plt Count Lymph % (Auto) 10.5 L Eos # 0.6 H Seg Neutrophils % 82.3 H Seg Neuts % (Manual) Lymphocytes % (Manual) Monocytes % (Manual) Nucleated RBC % Seg Neutrophils # 14.0 H Seg Neutrophils # Man Lymphocytes # (Manual) Monocytes # (Manual) Eosinophils # (Manual) APTT POC ABG pH ABG pH POC ABG pCO2 POC ABG pO2 ABG pO2 ABG HCO3 ABG O2 Saturation ABG Base Excess ABG Hemoglobin VBG pH Oxyhemoglobin Sodium Potassium 3.5 L Chloride Carbon Dioxide BUN Creatinine 0.6 L Glucose POC Glucose 69 L Lactic Acid Calcium 7.8 L Phosphorus Total Bilirubin AST ALT C-Reactive Protein Total Protein Albumin Triglycerides Amylase Lipase Urine WBC (Auto) Vancomycin Trough Crossmatch 12/31/17 12/31/17 12/31/17 05:15 09:25 10:17 WBC RBC Hgb Hct MCV MCH MCHC RDW Plt Count Lymph % (Auto) Eos # Seg Neutrophils % Seg Neuts % (Manual) Lymphocytes % (Manual) Monocytes % (Manual) Nucleated RBC % Seg Neutrophils # Seg Neutrophils # Man Lymphocytes # (Manual) Monocytes # (Manual) Eosinophils # (Manual) APTT POC ABG pH ABG pH 7.516 H POC ABG pCO2 POC ABG pO2 ABG pO2 69.2 L ABG HCO3 28.7 H ABG O2 Saturation ABG Base Excess 5.3 H ABG Hemoglobin 6.6 L VBG pH Oxyhemoglobin 93.8 L Sodium Potassium Chloride Carbon Dioxide BUN Creatinine Glucose POC Glucose 143 H Lactic Acid Calcium Phosphorus Total Bilirubin AST ALT C-Reactive Protein Total Protein Albumin Triglycerides Amylase Lipase Urine WBC (Auto) Vancomycin Trough Crossmatch See Detail
[2017-12-31] MEDS ORDERED: NACL 0.9% 500 ML 500 ML ONE (13:37)
--- NOTE | 2017-12-31 15:22 | Progress Note ---
Assessment and Plan Assessment: 1) Severe Sepsis: still fever and leukocytosis. Etiology most likely complicated H influenza bacteremia +/- pneumonia +/- ? intrabdominal source. Not better after 10 days of broad spectrum abx -blood cx negative -US legs No DVT -Abd US negative 2) H influenza bacteremia: likely from pneumonia. TTE neg 3) Complicated Bilateral pneumonia: etiology H influenza - should r/o empyema or abscess -CXR showed kimberlee pneumonia -Sputum 12/20 showed usual resp angelika -HIV neg -JERMAIN and ANCA negative -C3/C4 normal -CRP=7.1 -Strep pneumoniae not detected -Legionella not detected -tracheal aspirate - usual resp angelika -s/p 12 days cefepime and flagyl until 12/31 -s/p 7 days zyvox until 12/31 4) Acute respiratory failure: intubated 5) Thrombocytopenia : from sepsis, better. 6) Elevated LFTs: from sepsis, ETOH. Viral hepatitis all negative. 7) DM: uncontrolled Plan: -chest and abdominal CT - in view of persistent fever -stop cefepime and flagyl - day 12 of 12 -stop zyvox - day 7 of 7 -monitor off antibiotics Thank you for your consultation, will follow up with you. Mariel Corrigan MD Infectious Diseases Specialist [facility] M [phone] O [phone] Subjective Date of service: 12/31/17 Principal diagnosis: ARDS Interval history: Remains sedated intubated. still fever. Re-intubated during the weekend Microbiology: Blood cultures: 12/12 H influenza 1 of 4 bottles 12/15 neg 12/17 neg 12/23 neg 12/26 neg 12/30 ngtd Respiratory cultures: 12/13 - usual resp angelika 12/20 tracheal asp - usual resp angelika Current Antimicrobials: zyvox 11/27 cefepime 12/20 flagyl 12/20 Previous Antimicrobials: Zosyn Levaquin 12/13 Clindamycin 12/17 vanco 12/17 Objective - Exam Narrative Exam: General appearance: sedated on the vent Eyes: anicteric sclerae, moist conjunctivae; no lid-lag; PERRLA HENT: Atraumatic; oropharynx +ETT Neck: Trachea midline; supple, no thyromegaly or lymphadenopathy Lungs: kimberlee rhonchi CV:tachy Abdomen: Soft, distended tense Extremities: legs edema Skin: no rash Psych: alert talking. Neuro: alert talking moving all extremitties Lines: No CVL / PICC - Constitutional Vitals: Vital Signs Temp Pulse Resp BP Pulse Ox 99.4 F 90 32 H 115/73 92 12/31/17 11:54 12/31/17 14:18 12/31/17 14:18 12/31/17 14:04 12/31/17 14:04 Temperature -Last 24 Hours Temperature 99.4 F Temperature 98.8 F Temperature 99.1 F Temperature 100.6 F Temperature 101.8 F Temperature 101.8 F Temperature 100.4 F - Labs CBC & Chem 7: 12/31/17 03:15 12/31/17 03:15 Labs: Abnormal lab results 12/30/17 12/31/17 12/31/17 Range/Units 17:33 01:54 03:15 WBC 17.1 H (4.5-11.0) K/mm3 RBC 2.08 L (3.65-5.03) M/mm3 Hgb 6.9 L (11.8-15.2) gm/dl Hct 20.6 L (35.5-45.6) % MCV 99 H (84-94) fl MCH 33 H (28-32) pg RDW 13.1 L (13.2-15.2) % Lymph % (Auto) 10.5 L (13.4-35.0) % Eos # 0.6 H (0.0-0.4) K/mm3 Seg Neutrophils % 82.3 H (40.0-70.0) % Seg Neutrophils # 14.0 H (1.8-7.7) K/mm3 ABG pH (7.350-7.450) pH Units ABG pO2 (80.0-90.0) mm Hg ABG HCO3 (20.0-26.0) mmol/L ABG Base Excess (-2.0-3.0) mmol/L ABG Hemoglobin (14.0-18.0) gm/dl Oxyhemoglobin (95.0-99.0) % Potassium (3.6-5.0) mmol/L Creatinine (0.8-1.5) mg/dL POC Glucose 145 H 69 L (70-105) Calcium (8.4-10.2) mg/dL Crossmatch 12/31/17 12/31/17 12/31/17 Range/Units 03:15 05:15 09:25 WBC (4.5-11.0) K/mm3 RBC (3.65-5.03) M/mm3 Hgb (11.8-15.2) gm/dl Hct (35.5-45.6) % MCV (84-94) fl MCH (28-32) pg RDW (13.2-15.2) % Lymph % (Auto) (13.4-35.0) % Eos # (0.0-0.4) K/mm3 Seg Neutrophils % (40.0-70.0) % Seg Neutrophils # (1.8-7.7) K/mm3 ABG pH 7.516 H (7.350-7.450) pH Units ABG pO2 69.2 L (80.0-90.0) mm Hg ABG HCO3 28.7 H (20.0-26.0) mmol/L ABG Base Excess 5.3 H (-2.0-3.0) mmol/L ABG Hemoglobin 6.6 L (14.0-18.0) gm/dl Oxyhemoglobin 93.8 L (95.0-99.0) % Potassium 3.5 L (3.6-5.0) mmol/L Creatinine 0.6 L (0.8-1.5) mg/dL POC Glucose (70-105) Calcium 7.8 L (8.4-10.2) mg/dL Crossmatch See Detail 12/31/17 Range/Units 10:17 WBC (4.5-11.0) K/mm3 RBC (3.65-5.03) M/mm3 Hgb (11.8-15.2) gm/dl Hct (35.5-45.6) % MCV (84-94) fl MCH (28-32) pg RDW (13.2-15.2) % Lymph % (Auto) (13.4-35.0) % Eos # (0.0-0.4) K/mm3 Seg Neutrophils % (40.0-70.0) % Seg Neutrophils # (1.8-7.7) K/mm3 ABG pH (7.350-7.450) pH Units ABG pO2 (80.0-90.0) mm Hg ABG HCO3 (20.0-26.0) mmol/L ABG Base Excess (-2.0-3.0) mmol/L ABG Hemoglobin (14.0-18.0) gm/dl Oxyhemoglobin (95.0-99.0) % Potassium (3.6-5.0) mmol/L Creatinine (0.8-1.5) mg/dL POC Glucose 143 H (70-105) Calcium (8.4-10.2) mg/dL Crossmatch
--- NOTE | 2017-12-31 19:12 | Progress Note ---
Assessment and Plan Assessment and plan: --Acute hypoxic respiratory failure : self extubated , intubated again for hypoxic hypercapnic respiratory failure Continue ventilatory support, wean as tolerated and extubated nebulizers, IV steroids, IV antibiotics , pulmonary following --Anemia; hemoglobin 6.9, transfuse 1 unit of PRBC protocol Closely monitor H&H additional PRBC transfusion as needed --Febrile illness/sepsis/aspiration pneumonia/ARDS Antipyretics, repeat blood cultures, chest x-ray, continue Zyvox cefepime and Flagyl ID following, follow cultures --Hypokalemia; replenished per protocol with IV and oral potassium chloride Check magnesium, closely monitor electrolytes --Alcohol abuse: sedated, cont iv thiamine, Librium as needed --Hypotension on Levophed, titrate systolic blood pressure to more than 100 --Thrombocytopenia, improving, no evidence of bleeding --Severe protein calorie malnutrition; nutrition supplements, tube feeding and supportive care --DM type 2-continue Accu-Chek sliding scale coverage long-acting insulin, chilled feeding --DVT prophylaxis: Continue heparin and SCDs Consults and recommendations noted and appreciated Plan of care reviewed with the patient's nurse Critical care time 31 minutes The high probability of a clinically significant sudden or life-threatening deterioration of the [infectious, respiratory, hematologic] system(s) required my full and direct attention, intervention and personal management. The aggregate critical care time was [31 ] minutes. This time is in addition to the time spent performing reported procedures but including [ X] Data review and interpretation [ X] Patient assessment and monitoring of vital signs [ X ] Documentation [X] Medication orders and management History Interval history: Patient seen and examined, medical records reviewed Remains intubated on ventilatory support Mild drop in H&H hemoglobin today is 6.9 Patient is tachycardic and tachypneic, MAXIMUM TEMPERATURE of hymen on Noncommunicative Vital signs reviewed Hospitalist Physical - Constitutional Vitals: Temp Pulse Resp BP Pulse Ox 99.6 F 86 26 H 115/74 97 12/31/17 16:00 12/31/17 18:37 12/31/17 18:00 12/31/17 18:37 12/31/17 18:00 General appearance: Present: no acute distress, well-nourished, other ( intubated on vent) - EENT Eyes: Present: PERRL, EOM intact - Neck Neck: Present: supple, normal ROM - Respiratory Respiratory effort: normal Respiratory: bilateral: diminished, negative: rales, rhonchi, wheezing - Cardiovascular Rhythm: regular Heart Sounds: Present: S1 & S2 - Extremities Extremities: no ischemia, No edema - Abdominal General gastrointestinal: soft, non-tender, non-distended, normal bowel sounds - Integumentary Integumentary: Present: clear, warm - Psychiatric Psychiatric: other (intubated and sedated) - Neurologic Neurologic: other (intubated and sedated) Results - Labs CBC & Chem 7: 12/31/17 03:15 12/31/17 03:15 Labs: Laboratory Last Values WBC 17.1 K/mm3 (4.5-11.0) H 12/31/17 03:15 RBC 2.08 M/mm3 (3.65-5.03) L 12/31/17 03:15 Hgb 6.9 gm/dl (11.8-15.2) L 12/31/17 03:15 Hct 20.6 % (35.5-45.6) L 12/31/17 03:15 MCV 99 fl (84-94) H 12/31/17 03:15 MCH 33 pg (28-32) H 12/31/17 03:15 MCHC 34 % (32-34) 12/31/17 03:15 RDW 13.1 % (13.2-15.2) L 12/31/17 03:15 Plt Count 187 K/mm3 (140-440) 12/31/17 03:15 Lymph % (Auto) 10.5 % (13.4-35.0) L 12/31/17 03:15 [place] % (Auto) 3.4 % (0.0-7.3) 12/31/17 03:15 Eos % (Auto) 3.5 % (0.0-4.3) 12/31/17 03:15 Baso % (Auto) 0.3 % (0.0-1.8) 12/31/17 03:15 Lymph # 1.8 K/mm3 (1.2-5.4) 12/31/17 03:15 [place] # 0.6 K/mm3 (0.0-0.8) 12/31/17 03:15 Eos # 0.6 K/mm3 (0.0-0.4) H 12/31/17 03:15 Baso # 0.1 K/mm3 (0.0-0.1) 12/31/17 03:15 Add Manual Diff Complete 12/29/17 08:04 Total Counted 200 12/29/17 08:04 Seg Neutrophils % 82.3 % (40.0-70.0) H 12/31/17 03:15 Seg Neuts % (Manual) 93.0 % (40.0-70.0) H 12/29/17 08:04 Band Neutrophils % 0 % 12/29/17 08:04 Lymphocytes % (Manual) 2.0 % (13.4-35.0) L 12/29/17 08:04 Reactive Lymphs % (Man) 0 % 12/29/17 08:04 Monocytes % (Manual) 1.5 % (0.0-7.3) 12/29/17 08:04 Eosinophils % (Manual) 3.5 % (0.0-4.3) 12/29/17 08:04 Basophils % (Manual) 0 % (0.0-1.8) 12/29/17 08:04 Metamyelocytes % 0 % 12/29/17 08:04 Myelocytes % 0 % 12/29/17 08:04 Promyelocytes % 0 % 12/29/17 08:04 Blast Cells % 0 % 12/29/17 08:04 Nucleated RBC % Not Reportable 12/29/17 08:04 Seg Neutrophils # 14.0 K/mm3 (1.8-7.7) H 12/31/17 03:15 Seg Neutrophils # Man 19.3 K/mm3 (1.8-7.7) H 12/29/17 08:04 Band Neutrophils # 0.0 K/mm3 12/29/17 08:04 Lymphocytes # (Manual) 0.4 K/mm3 (1.2-5.4) L 12/29/17 08:04 Abs React Lymphs (Man) 0.0 K/mm3 12/29/17 08:04 Monocytes # (Manual) 0.3 K/mm3 (0.0-0.8) 12/29/17 08:04 Eosinophils # (Manual) 0.7 K/mm3 (0.0-0.4) H 12/29/17 08:04 Basophils # (Manual) 0.0 K/mm3 (0.0-0.1) 12/29/17 08:04 Metamyelocytes # 0.0 K/mm3 12/29/17 08:04 Myelocytes # 0.0 K/mm3 12/29/17 08:04 Promyelocytes # 0.0 K/mm3 12/29/17 08:04 Blast Cells # 0.0 K/mm3 12/29/17 08:04 Pathologist Review 12/23/17 09:25 WBC Morphology Not Reportable 12/29/17 08:04 Hypersegmented Neuts Not Reportable 12/29/17 08:04 Hyposegmented Neuts Not Reportable 12/29/17 08:04 Hypogranular Neuts Not Reportable 12/29/17 08:04 Smudge Cells Not Reportable 12/29/17 08:04 Toxic Granulation Not Reportable 12/29/17 08:04 Toxic Vacuolation Not Reportable 12/29/17 08:04 Dohle Bodies Not Reportable 12/29/17 08:04 Pelger-Huet Anomaly Not Reportable 12/29/17 08:04 Mary Rods Not Reportable 12/29/17 08:04 Platelet Estimate Consistent w auto 12/29/17 08:04 Clumped Platelets Not Reportable 12/29/17 08:04 Plt Clumps, EDTA Not Reportable 12/29/17 08:04 Large Platelets Not Reportable 12/29/17 08:04 Giant Platelets Not Reportable 12/29/17 08:04 Platelet Satelliting Not Reportable 12/29/17 08:04 Plt Morphology Comment Not Reportable 12/29/17 08:04 RBC Morphology Not Reportable 12/29/17 08:04 Dimorphic RBCs Not Reportable 12/29/17 08:04 Polychromasia Not Reportable 12/29/17 08:04 Hypochromasia Not Reportable 12/29/17 08:04 Poikilocytosis Not Reportable 12/29/17 08:04 Anisocytosis 1+ 12/29/17 08:04 Microcytosis Not Reportable 12/29/17 08:04 Macrocytosis Not Reportable 12/29/17 08:04 Spherocytes Not Reportable 12/29/17 08:04 Pappenheimer Bodies Not Reportable 12/29/17 08:04 Sickle Cells Not Reportable 12/29/17 08:04 Target Cells Not Reportable 12/29/17 08:04 Tear Drop Cells Not Reportable 12/29/17 08:04 Ovalocytes Not Reportable 12/29/17 08:04 Stomatocytes 1+ 12/29/17 08:04 Helmet Cells Not Reportable 12/29/17 08:04 Arceo-Blue Diamond Bodies Not Reportable 12/29/17 08:04 Cooter Rings Not Reportable 12/29/17 08:04 Chidi Cells Not Reportable 12/29/17 08:04 Bite Cells Not Reportable 12/29/17 08:04 Crenated Cell Not Reportable 12/29/17 08:04 Elliptocytes Not Reportable 12/29/17 08:04 Acanthocytes (Spur) Not Reportable 12/29/17 08:04 Rouleaux Not Reportable 12/29/17 08:04 Hemoglobin C Crystals Not Reportable 12/29/17 08:04 Schistocytes Not Reportable 12/29/17 08:04 Malaria parasites Not Reportable 12/29/17 08:04 Vipul Bodies Not Reportable 12/29/17 08:04 Hem Pathologist Commnt No 12/29/17 08:04 PT 14.9 Sec. (12.2-14.9) 12/15/17 04:05 INR 1.11 (0.87-1.13) 12/15/17 04:05 APTT 20.9 Sec. (24.2-36.6) L 12/15/17 04:05 POC ABG pH 7.503 (7.35-7.45) H 12/25/17 03:38 ABG pH 7.516 pH Units (7.350-7.450) H 12/31/17 05:15 POC ABG pCO2 35.8 (35-45) 12/25/17 03:38 ABG pCO2 36.3 mm Hg 12/31/17 05:15 POC ABG pO2 66 (80-105) L 12/25/17 03:38 ABG pO2 69.2 mm Hg (80.0-90.0) L 12/31/17 05:15 POC ABG HCO3 28.1 12/25/17 03:38 ABG HCO3 28.7 mmol/L (20.0-26.0) H 12/31/17 05:15 POC ABG Total CO2 29 12/25/17 03:38 POC ABG O2 Sat 95 12/25/17 03:38 ABG O2 Saturation 96.0 % (95.0-99.0) 12/31/17 05:15 ABG O2 Content 8.8 (0.0-44) 12/31/17 05:15 POC ABG Base Excess 5 12/25/17 03:38 ABG Base Excess 5.3 mmol/L (-2.0-3.0) H 12/31/17 05:15 ABG Hemoglobin 6.6 gm/dl (14.0-18.0) L 12/31/17 05:15 ABG Carboxyhemoglobin 2.1 % (0.0-5.0) 12/31/17 05:15 ABG Methemoglobin 0.2 % (0.0-1.5) 12/31/17 05:15 VBG pH 7.472 (7.320-7.420) H 12/12/17 19:18 Oxyhemoglobin 93.8 % (95.0-99.0) L 12/31/17 05:15 FiO2 40 % 12/31/17 05:15 Sodium 142 mmol/L (137-145) 12/31/17 03:15 Potassium 3.5 mmol/L (3.6-5.0) L 12/31/17 03:15 Chloride 103.0 mmol/L (98-107) 12/31/17 03:15 Carbon Dioxide 29 mmol/L (22-30) 12/31/17 03:15 Anion Gap 14 mmol/L 12/31/17 03:15 BUN 9 mg/dL (9-20) 12/31/17 03:15 Creatinine 0.6 mg/dL (0.8-1.5) L 12/31/17 03:15 Estimated GFR > 60 ml/min 12/31/17 03:15 BUN/Creatinine Ratio 15 % 12/31/17 03:15 Glucose 77 mg/dL (75-100) 12/31/17 03:15 POC Glucose 137 (70-105) H 12/31/17 18:30 Lactic Acid 2.00 mmol/L (0.7-2.0) 12/13/17 19:38 Calcium 7.8 mg/dL (8.4-10.2) L 12/31/17 03:15 Phosphorus 2.20 mg/dL (2.5-4.5) L 12/28/17 08:47 Magnesium 1.90 mg/dL (1.7-2.3) 12/30/17 04:50 Total Bilirubin 0.60 mg/dL (0.1-1.2) 12/29/17 08:04 AST 36 units/L (5-40) 12/29/17 08:04 ALT 29 units/L (7-56) 12/29/17 08:04 Alkaline Phosphatase 68 units/L (35-129) 12/29/17 08:04 C-Reactive Protein 7.10 mg/dL (0.00-1.30) H 12/20/17 13:40 NT-Pro-B Natriuret Pep 409.9 pg/mL (0-450) 12/12/17 19:02 Total Protein 5.6 g/dL (6.3-8.2) L 12/29/17 08:04 Albumin 2.4 g/dL (3.9-5) L 12/29/17 08:04 Albumin/Globulin Ratio 0.8 % 12/29/17 08:04 Triglycerides 1042 mg/dL (2-149) H 12/20/17 13:40 Amylase 20 units/L (27-131) L 12/13/17 13:47 Lipase 9 units/L (13-60) L 12/13/17 13:47 Urine Color Neeta (Yellow) 12/15/17 17:00 Urine Turbidity Hazy (Clear) 12/15/17 17:00 Urine pH 6.0 (5.0-7.0) 12/15/17 17:00 Ur Specific [place] 1.027 (1.003-1.030) 12/15/17 17:00 Urine Protein 30 mg/dl mg/dL (Negative) 12/15/17 17:00 Urine Glucose (UA) Neg mg/dL (Negative) 12/15/17 17:00 Urine Ketones Tr mg/dL (Negative) 12/15/17 17:00 Urine Blood Lg (Negative) 12/15/17 17:00 Urine Nitrite Neg (Negative) 12/15/17 17:00 Urine Bilirubin Neg (Negative) 12/15/17 17:00 Urine Ictotest Positive (Negative) 12/12/17 20:42 Urine Urobilinogen < 2.0 mg/dL (<2.0) 12/15/17 17:00 Ur Leukocyte Esterase Tr (Negative) 12/15/17 17:00 Urine WBC (Auto) 38.0 /HPF (0.0-6.0) H 12/15/17 17:00 Urine RBC (Auto) 65.0 /HPF (0.0-6.0) 12/15/17 17:00 U Epithel Cells (Auto) < 1.0 /HPF (0-13.0) 12/12/17 20:42 Urine Bacteria (Auto) 1+ /HPF (Negative) 12/15/17 17:00 Urine Mucus 1+ /HPF 12/12/17 20:42 Vancomycin Trough 22.5 ug/mL (5.0-20.0) H 12/25/17 12:58 JERMAIN Screen Negative (Negative) 12/18/17 16:44 Proteinase 3 (PR3) Ab <1.0 AI (<1.0) 12/18/17 16:33 Myeloperoxidase Ab <1.0 AI (<1.0) 12/18/17 16:33 Complement C3 113 mg/dL (82-185) 12/18/17 16:33 Complement C4 15 mg/dL (15-53) 12/18/17 16:33 Hepatitis A IgM Ab Non-reactive (NonReactive) 12/20/17 13:40 Hep Bs Antigen Non-reactive (Negative) 12/20/17 13:40 Hep B Core IgM Ab Non-reactive (NonReactive) 12/20/17 13:40 Hepatitis C Antibody Non-reactive (NonReactive) 12/20/17 13:40 HIV 1&2 Antibody Rapid Non react (Non React) 12/20/17 13:40 HIV P24 Antigen Non react (Non React) 12/20/17 13:40 Influenza A (Rapid) Negative (Negative) 12/12/17 22:00 Influenza B (Rapid) Negative (Negative) 12/12/17 22:00 Urine Legionella Ag Not detected (Not Detected) 12/14/17 16:15 Miscellaneous Test Flexitest 1 12/14/17 16:15 Blood Type O POSITIVE 12/31/17 09:25 Antibody Screen Negative 12/31/17 09:25 Crossmatch See Detail 12/31/17 09:25
[2018-01-01] MEDS: DUONEB *Not for PRN Use IH SCH ×4 (02:01→20:36)
[2018-01-01] MEDS: DEXMEDETOMIDINE 200 MCG in NACL 0.9% 48 ML IV SCH ×2 (02:17→09:00)
[2018-01-01] MEDS: HumaLOG SUB-Q SCH ×6 (02:17→21:34)
[2018-01-01] MEDS: SUBLIMAZE IV PRN ×2 (04:19→13:03)
[2018-01-01] MEDS: ZOFRAN IV PRN (04:20)
[2018-01-01 04:21] LABS: Basophils # (Auto) 0.2 K/mm3 (0.0-0.1); Basophils % (Auto) 1.1 % (0.0-1.8); Eosinophils # (Auto) 0.7 K/mm3 (0.0-0.4); Eosinophils % (Auto) 4.2 % (0.0-4.3); Hematocrit 23.6 % (35.5-45.6); Hemoglobin 7.8 gm/dl (11.8-15.2); Lymphocytes # (Auto) 1.7 K/mm3 (1.2-5.4); Lymphocytes % (Auto) 10.7 % (13.4-35.0); Mean Corpuscular HGB Conc 33 % (32-34); Mean Corpuscular Hemoglobin 33 pg (28-32); Mean Corpuscular Volume 98 fl (84-94); Monocytes # (Auto) 0.8 K/mm3 (0.0-0.8); Platelet Count 173 K/mm3 (140-440); Red Blood Count 2.41 M/mm3 (3.65-5.03); Red Cell Distribution Width 14.1 % (13.2-15.2)
[2018-01-01 04:34] LABS: BUN/Creatinine Ratio 30; Blood Urea Nitrogen 12 mg/dL (9-20); Calcium 7.9 mg/dL (8.4-10.2); Hemolysis Index 0
[2018-01-01 04:41] LABS: ABG Base Excess 3.4 mmol/L (-2.0-3.0); ABG HCO3 27.5 mmol/L (20.0-26.0); ABG Methemoglobin 0.4 % (0.0-1.5); ABG Oxygen Saturation 94.4 % (95.0-99.0); ABG PCO2 39.7 mm Hg; ABG PH 7.458 pH Units (7.350-7.450); ABG PO2 67.5 mm Hg (80.0-90.0)
[2018-01-01] MEDS: LOPRESSOR IV SCH ×3 (05:24→18:56)
[2018-01-01] MEDS: HEPARIN SUB-Q SCH ×3 (05:25→21:33)
[2018-01-01] MEDS: LIBRIUM PO SCH ×3 (05:51→17:41)
--- NOTE | 2018-01-01 08:28 | Progress Note ---
Assessment and Plan Assessment: 1) Severe Sepsis: fever and leukocytosis better, very slow improvement. Etiology most likely complicated H influenza bacteremia +/- pneumonia +/- ? intrabdominal source. -blood cx negative -US legs No DVT -Abd US negative 2) H influenza bacteremia: likely from pneumonia. TTE neg 3) Complicated Bilateral pneumonia: etiology H influenza - should r/o empyema or abscess -CXR showed kimberlee pneumonia -Sputum 12/20 showed usual resp angelika -HIV neg -JERMAIN and ANCA negative -C3/C4 normal -CRP=7.1 -Strep pneumoniae not detected -Legionella not detected -tracheal aspirate - usual resp angelika -s/p 12 days cefepime and flagyl until 12/31 -s/p 7 days zyvox until 12/31 4) Acute respiratory failure: re-intubated 5) Thrombocytopenia : from sepsis, resolved 6) Elevated LFTs: resolved, etio. ?sepsis, ETOH. Viral hepatitis all negative. 7) DM: uncontrolled Plan: -chest and abdominal CT - still pending -unable to be done overnight due to agitation -monitor off antibiotics -consider trach Thank you for your consultation, will follow up with you. Mariel Corrigan MD Infectious Diseases Specialist [facility] M [phone] O [phone] Subjective Date of service: 01/01/18 Principal diagnosis: ARDS Interval history: Remains sedated intubated easily agitated. Tmax 99.9. Re-intubated during the weekend Microbiology: Blood cultures: 12/12 H influenza 1 of 4 bottles 12/15 neg 12/17 neg 12/23 neg 12/26 neg 12/30 ngtd Respiratory cultures: 12/13 - usual resp angelika 12/20 tracheal asp - usual resp angelika Current Antimicrobials: Previous Antimicrobials: Zosyn Levaquin 12/13 Clindamycin 12/17 vanco 12/17-12/25 zyvox 11/27-12/31 cefepime 12/20-12/31 flagyl 12/20-12/31 Objective - Exam Narrative Exam: General appearance: sedated on the vent Eyes: anicteric sclerae, moist conjunctivae; no lid-lag; PERRLA HENT: Atraumatic; oropharynx +ETT Neck: Trachea midline; supple, no thyromegaly or lymphadenopathy Lungs: kimberlee rhonchi CV:tachy Abdomen: Soft, distended tense Extremities: legs edema Skin: no rash Psych: alert talking. Neuro: alert talking moving all extremitties Lines: right PICC 12/20 - Constitutional Vitals: Vital Signs Temp Pulse Resp BP Pulse Ox 99.0 F 83 26 H 103/58 95 01/01/18 04:00 01/01/18 07:13 01/01/18 05:00 01/01/18 07:13 01/01/18 07:13 Temperature -Last 24 Hours Temperature 99.0 F Temperature 98.9 F Temperature 99.9 F Temperature 99.6 F Temperature 99.6 F Temperature 99.4 F Temperature 99.4 F - Labs CBC & Chem 7: 01/01/18 04:00 01/01/18 04:00 Labs: Abnormal lab results 12/31/17 12/31/17 12/31/17 Range/Units 09:25 10:17 14:20 WBC (4.5-11.0) K/mm3 RBC (3.65-5.03) M/mm3 Hgb (11.8-15.2) gm/dl Hct (35.5-45.6) % MCV (84-94) fl MCH (28-32) pg Lymph % (Auto) (13.4-35.0) % Eos # (0.0-0.4) K/mm3 Baso # (0.0-0.1) K/mm3 Seg Neutrophils % (40.0-70.0) % Seg Neutrophils # (1.8-7.7) K/mm3 ABG pH (7.350-7.450) pH Units ABG pO2 (80.0-90.0) mm Hg ABG HCO3 (20.0-26.0) mmol/L ABG O2 Saturation (95.0-99.0) % ABG Base Excess (-2.0-3.0) mmol/L ABG Hemoglobin (14.0-18.0) gm/dl Oxyhemoglobin (95.0-99.0) % Creatinine (0.8-1.5) mg/dL Glucose (75-100) mg/dL POC Glucose 143 H 175 H (70-105) Calcium (8.4-10.2) mg/dL Crossmatch See Detail 12/31/17 12/31/17 12/31/17 Range/Units 18:30 21:40 23:34 WBC (4.5-11.0) K/mm3 RBC (3.65-5.03) M/mm3 Hgb (11.8-15.2) gm/dl Hct (35.5-45.6) % MCV (84-94) fl MCH (28-32) pg Lymph % (Auto) (13.4-35.0) % Eos # (0.0-0.4) K/mm3 Baso # (0.0-0.1) K/mm3 Seg Neutrophils % (40.0-70.0) % Seg Neutrophils # (1.8-7.7) K/mm3 ABG pH (7.350-7.450) pH Units ABG pO2 (80.0-90.0) mm Hg ABG HCO3 (20.0-26.0) mmol/L ABG O2 Saturation (95.0-99.0) % ABG Base Excess (-2.0-3.0) mmol/L ABG Hemoglobin (14.0-18.0) gm/dl Oxyhemoglobin (95.0-99.0) % Creatinine (0.8-1.5) mg/dL Glucose (75-100) mg/dL POC Glucose 137 H 182 H 132 H (70-105) Calcium (8.4-10.2) mg/dL Crossmatch 01/01/18 01/01/18 01/01/18 Range/Units 02:09 04:00 04:00 WBC 16.4 H (4.5-11.0) K/mm3 RBC 2.41 L (3.65-5.03) M/mm3 Hgb 7.8 L (11.8-15.2) gm/dl Hct 23.6 L (35.5-45.6) % MCV 98 H (84-94) fl MCH 33 H (28-32) pg Lymph % (Auto) 10.7 L (13.4-35.0) % Eos # 0.7 H (0.0-0.4) K/mm3 Baso # 0.2 H (0.0-0.1) K/mm3 Seg Neutrophils % 79.0 H (40.0-70.0) % Seg Neutrophils # 12.9 H (1.8-7.7) K/mm3 ABG pH (7.350-7.450) pH Units ABG pO2 (80.0-90.0) mm Hg ABG HCO3 (20.0-26.0) mmol/L ABG O2 Saturation (95.0-99.0) % ABG Base Excess (-2.0-3.0) mmol/L ABG Hemoglobin (14.0-18.0) gm/dl Oxyhemoglobin (95.0-99.0) % Creatinine 0.4 L (0.8-1.5) mg/dL Glucose 129 H (75-100) mg/dL POC Glucose 117 H (70-105) Calcium 7.9 L (8.4-10.2) mg/dL Crossmatch 01/01/18 01/01/18 Range/Units 04:04 05:32 WBC (4.5-11.0) K/mm3 RBC (3.65-5.03) M/mm3 Hgb (11.8-15.2) gm/dl Hct (35.5-45.6) % MCV (84-94) fl MCH (28-32) pg Lymph % (Auto) (13.4-35.0) % Eos # (0.0-0.4) K/mm3 Baso # (0.0-0.1) K/mm3 Seg Neutrophils % (40.0-70.0) % Seg Neutrophils # (1.8-7.7) K/mm3 ABG pH 7.458 H (7.350-7.450) pH Units ABG pO2 67.5 L (80.0-90.0) mm Hg ABG HCO3 27.5 H (20.0-26.0) mmol/L ABG O2 Saturation 94.4 L (95.0-99.0) % ABG Base Excess 3.4 H (-2.0-3.0) mmol/L ABG Hemoglobin 7.8 L (14.0-18.0) gm/dl Oxyhemoglobin 92.1 L (95.0-99.0) % Creatinine (0.8-1.5) mg/dL Glucose (75-100) mg/dL POC Glucose 129 H (70-105) Calcium (8.4-10.2) mg/dL Crossmatch
[2018-01-01] MEDS: LANTUS SUB-Q SCH (10:19)
[2018-01-01] MEDS: POTASSIUM CHLORIDE PO SCH ×2 (10:22→10:23)
[2018-01-01] MEDS: PEPCID PO SCH ×2 (10:22→21:33)
[2018-01-01] MEDS: VITAMIN B-1 PO SCH (10:22)
--- NOTE | 2018-01-01 11:00 | Progress Note ---
Assessment and Plan Acute respiratory failure. Stable on ventilator support at this time, but unable to wean further Pneumonia. Improving. ID requesting follow-up with CT scan including abdomen for additional source review AMS, agitation. Restricted weaning, requiring Precedex, Librium He reportedly had similar behavior in recent weeks on multiple times, requiring combinations sedation in aggressive fashion. Sr. be more stabilized with Librium previously at the bedside Anemia. Stable Fever. ID following Recommendations CT scan as scheduled Restart weaning afterwards We'll continue to titrate PEEP and FiO2 as tolerated Continue Precedex infusion and Librium at the unit. Discussed discontinuing her Precedex for safety when the patient being transferred for safety if necessary and just bolus with fentanyl Maintain extubation precautions Continue SBT if tolerated once back at the end If he fails additional weaning attempts, the patient may need tracheotomy in order to complete the process Critical care time was 31 minutes of [id number] evaluation and coordination of care Subjective Date of service: 01/01/18 Principal diagnosis: ARDS Interval history: Partially sedated, responsive told some of my questions. On ventilator support Objective Vital Signs - 12hr 12/31/17 12/31/17 12/31/17 23:00 23:24 23:32 Temperature Pulse Rate 84 88 81 Pulse Rate [ Anterior Bilateral Throughout] Respiratory 28 H 30 H Rate Respiratory Rate [Anterior Bilateral Throughout] Blood Pressure 106/64 110/66 102/60 O2 Sat by Pulse 98 96 Oximetry 12/31/17 01/01/18 01/01/18 23:34 00:00 01:00 Temperature 98.9 F Pulse Rate 82 83 83 Pulse Rate [ Anterior Bilateral Throughout] Respiratory 29 H 31 H Rate Respiratory Rate [Anterior Bilateral Throughout] Blood Pressure 102/60 101/61 101/65 O2 Sat by Pulse 97 98 97 Oximetry 01/01/18 01/01/18 01/01/18 02:00 02:01 02:13 Temperature Pulse Rate 83 Pulse Rate [ 86 84 Anterior Bilateral Throughout] Respiratory 18 Rate Respiratory 20 21 Rate [Anterior Bilateral Throughout] Blood Pressure 105/67 O2 Sat by Pulse 100 Oximetry 01/01/18 01/01/18 01/01/18 03:00 03:19 04:00 Temperature 99.0 F Pulse Rate 87 87 87 Pulse Rate [ Anterior Bilateral Throughout] Respiratory 31 H 29 H Rate Respiratory Rate [Anterior Bilateral Throughout] Blood Pressure 113/66 113/68 112/69 O2 Sat by Pulse 97 94 97 Oximetry 01/01/18 01/01/18 01/01/18 05:00 07:13 07:24 Temperature Pulse Rate 83 83 Pulse Rate [ 89 Anterior Bilateral Throughout] Respiratory 26 H Rate Respiratory 36 H Rate [Anterior Bilateral Throughout] Blood Pressure 100/57 103/58 O2 Sat by Pulse 95 95 Oximetry 01/01/18 08:31 Temperature Pulse Rate Pulse Rate [ 88 Anterior Bilateral Throughout] Respiratory Rate Respiratory 37 H Rate [Anterior Bilateral Throughout] Blood Pressure O2 Sat by Pulse Oximetry Constitutional: no acute distress, other (intubated, somnolent) Eyes: non-icteric ENT: oropharynx moist Neck: supple, no JVD Effort: normal Ascultation: Bilateral: clear, diminished breath sounds Cardiovascular: regular rate and rhythm Gastrointestinal: normoactive bowel sounds, soft, non-tender, non-distended, other (obese) Integumentary: normal Extremities: no cyanosis, no edema, pink and warm Neurologic: unable to assess Psychiatric: other (not able to assess) CBC and BMP: 01/01/18 04:00 01/01/18 04:00 ABG, PT/INR, D-dimer: ABG POC ABG pH 7.503 (7.35-7.45) H 12/25/17 03:38 ABG pH 7.458 pH Units (7.350-7.450) H 01/01/18 04:04 POC ABG pCO2 35.8 (35-45) 12/25/17 03:38 ABG pCO2 39.7 mm Hg 01/01/18 04:04 POC ABG pO2 66 (80-105) L 12/25/17 03:38 ABG pO2 67.5 mm Hg (80.0-90.0) L 01/01/18 04:04 POC ABG HCO3 28.1 12/25/17 03:38 POC ABG Total CO2 29 12/25/17 03:38 POC ABG O2 Sat 95 12/25/17 03:38 ABG O2 Saturation 94.4 % (95.0-99.0) L 01/01/18 04:04 PT/INR, D-dimer PT 14.9 Sec. (12.2-14.9) 12/15/17 04:05 INR 1.11 (0.87-1.13) 12/15/17 04:05 Abnormal lab findings: Abnormal Labs 12/12/17 12/12/17 12/12/17 18:57 19:02 19:02 WBC RBC Hgb Hct MCV 96 H MCH 34 H MCHC 35 H RDW Plt Count 46 L Lymph % (Auto) Eos # Baso # Seg Neutrophils % Seg Neuts % (Manual) 77.0 H Lymphocytes % (Manual) 13.0 L Monocytes % (Manual) Nucleated RBC % Seg Neutrophils # Seg Neutrophils # Man Lymphocytes # (Manual) 0.9 L Monocytes # (Manual) Eosinophils # (Manual) APTT POC ABG pH ABG pH POC ABG pCO2 POC ABG pO2 ABG pO2 ABG HCO3 ABG O2 Saturation ABG Base Excess ABG Hemoglobin VBG pH Oxyhemoglobin Sodium Potassium Chloride Carbon Dioxide BUN Creatinine Glucose POC Glucose 321 H Lactic Acid 4.00 H* Calcium Phosphorus Total Bilirubin AST ALT C-Reactive Protein Total Protein Albumin Triglycerides Amylase Lipase Urine WBC (Auto) Vancomycin Trough Crossmatch 12/12/17 12/12/17 12/12/17 19:02 19:18 20:55 WBC RBC Hgb Hct MCV MCH MCHC RDW Plt Count Lymph % (Auto) Eos # Baso # Seg Neutrophils % Seg Neuts % (Manual) Lymphocytes % (Manual) Monocytes % (Manual) Nucleated RBC % Seg Neutrophils # Seg Neutrophils # Man Lymphocytes # (Manual) Monocytes # (Manual) Eosinophils # (Manual) APTT POC ABG pH ABG pH POC ABG pCO2 POC ABG pO2 ABG pO2 ABG HCO3 ABG O2 Saturation ABG Base Excess ABG Hemoglobin VBG pH 7.472 H Oxyhemoglobin Sodium 124 L Potassium Chloride 80.0 L Carbon Dioxide 20 L BUN Creatinine Glucose 382 H POC Glucose 283 H Lactic Acid Calcium 8.1 L Phosphorus Total Bilirubin 4.60 H AST 93 H ALT 112 H C-Reactive Protein Total Protein Albumin 2.5 L Triglycerides Amylase Lipase Urine WBC (Auto) Vancomycin Trough Crossmatch 12/12/17 12/13/17 12/13/17 21:41 00:45 01:29 WBC RBC Hgb Hct MCV MCH MCHC RDW Plt Count Lymph % (Auto) Eos # Baso # Seg Neutrophils % Seg Neuts % (Manual) Lymphocytes % (Manual) Monocytes % (Manual) Nucleated RBC % Seg Neutrophils # Seg Neutrophils # Man Lymphocytes # (Manual) Monocytes # (Manual) Eosinophils # (Manual) APTT POC ABG pH ABG pH POC ABG pCO2 POC ABG pO2 ABG pO2 ABG HCO3 ABG O2 Saturation ABG Base Excess ABG Hemoglobin VBG pH Oxyhemoglobin Sodium Potassium Chloride Carbon Dioxide BUN Creatinine Glucose POC Glucose Lactic Acid 4.20 H* 2.70 H* 3.30 H* Calcium Phosphorus Total Bilirubin AST ALT C-Reactive Protein Total Protein Albumin Triglycerides Amylase Lipase Urine WBC (Auto) Vancomycin Trough Crossmatch 12/13/17 12/13/17 12/13/17 02:19 03:44 05:58 WBC RBC Hgb Hct MCV 97 H MCH 34 H MCHC 35 H RDW Plt Count 41 L Lymph % (Auto) Eos # Baso # Seg Neutrophils % Seg Neuts % (Manual) Lymphocytes % (Manual) 8.0 L Monocytes % (Manual) 8.0 H Nucleated RBC % Seg Neutrophils # Seg Neutrophils # Man Lymphocytes # (Manual) 0.6 L Monocytes # (Manual) Eosinophils # (Manual) APTT POC ABG pH 7.334 L ABG pH POC ABG pCO2 POC ABG pO2 43 L ABG pO2 ABG HCO3 ABG O2 Saturation ABG Base Excess ABG Hemoglobin VBG pH Oxyhemoglobin Sodium Potassium Chloride Carbon Dioxide BUN Creatinine Glucose POC Glucose Lactic Acid 2.60 H* Calcium Phosphorus Total Bilirubin AST ALT C-Reactive Protein Total Protein Albumin Triglycerides Amylase Lipase Urine WBC (Auto) Vancomycin Trough Crossmatch 12/13/17 12/13/17 12/13/17 05:58 05:58 05:58 WBC RBC Hgb Hct MCV MCH MCHC RDW Plt Count Lymph % (Auto) Eos # Baso # Seg Neutrophils % Seg Neuts % (Manual) Lymphocytes % (Manual) Monocytes % (Manual) Nucleated RBC % Seg Neutrophils # Seg Neutrophils # Man Lymphocytes # (Manual) Monocytes # (Manual) Eosinophils # (Manual) APTT POC ABG pH ABG pH POC ABG pCO2 POC ABG pO2 ABG pO2 ABG HCO3 ABG O2 Saturation ABG Base Excess ABG Hemoglobin VBG pH Oxyhemoglobin Sodium 132 L D Potassium Chloride 90.0 L Carbon Dioxide 20 L BUN Creatinine Glucose 346 H POC Glucose 298 H Lactic Acid 4.50 H* Calcium 8.2 L Phosphorus Total Bilirubin AST ALT C-Reactive Protein Total Protein Albumin Triglycerides Amylase Lipase Urine WBC (Auto) Vancomycin Trough Crossmatch 12/13/17 12/13/17 12/13/17 06:27 09:42 11:47 WBC RBC Hgb Hct MCV MCH MCHC RDW Plt Count Lymph % (Auto) Eos # Baso # Seg Neutrophils % Seg Neuts % (Manual) Lymphocytes % (Manual) Monocytes % (Manual) Nucleated RBC % Seg Neutrophils # Seg Neutrophils # Man Lymphocytes # (Manual) Monocytes # (Manual) Eosinophils # (Manual) APTT POC ABG pH 7.267 L 7.298 L ABG pH POC ABG pCO2 50.4 H 51.3 H POC ABG pO2 47 L 43 L ABG pO2 ABG HCO3 ABG O2 Saturation ABG Base Excess ABG Hemoglobin VBG pH Oxyhemoglobin Sodium Potassium Chloride Carbon Dioxide BUN Creatinine Glucose POC Glucose 376 H Lactic Acid Calcium Phosphorus Total Bilirubin AST ALT C-Reactive Protein Total Protein Albumin Triglycerides Amylase Lipase Urine WBC (Auto) Vancomycin Trough Crossmatch 12/13/17 12/13/17 12/13/17 12:03 13:47 13:47 WBC RBC Hgb Hct MCV MCH MCHC RDW Plt Count Lymph % (Auto) Eos # Baso # Seg Neutrophils % Seg Neuts % (Manual) Lymphocytes % (Manual) Monocytes % (Manual) Nucleated RBC % Seg Neutrophils # Seg Neutrophils # Man Lymphocytes # (Manual) Monocytes # (Manual) Eosinophils # (Manual) APTT POC ABG pH 7.264 L ABG pH POC ABG pCO2 54.9 H POC ABG pO2 55 L ABG pO2 ABG HCO3 ABG O2 Saturation ABG Base Excess ABG Hemoglobin VBG pH Oxyhemoglobin Sodium Potassium Chloride Carbon Dioxide BUN Creatinine Glucose POC Glucose Lactic Acid 2.80 H* Calcium Phosphorus Total Bilirubin AST ALT C-Reactive Protein Total Protein Albumin Triglycerides Amylase 20 L Lipase 9 L Urine WBC (Auto) Vancomycin Trough Crossmatch 12/13/17 12/13/17 12/13/17 15:36 17:39 21:47 WBC RBC Hgb Hct MCV MCH MCHC RDW Plt Count Lymph % (Auto) Eos # Baso # Seg Neutrophils % Seg Neuts % (Manual) Lymphocytes % (Manual) Monocytes % (Manual) Nucleated RBC % Seg Neutrophils # Seg Neutrophils # Man Lymphocytes # (Manual) Monocytes # (Manual) Eosinophils # (Manual) APTT POC ABG pH 7.229 L 7.225 L ABG pH POC ABG pCO2 60.9 H 66.3 H POC ABG pO2 42 L 41 L ABG pO2 ABG HCO3 ABG O2 Saturation ABG Base Excess ABG Hemoglobin VBG pH Oxyhemoglobin Sodium Potassium Chloride Carbon Dioxide BUN Creatinine Glucose POC Glucose 289 H Lactic Acid Calcium Phosphorus Total Bilirubin AST ALT C-Reactive Protein Total Protein Albumin Triglycerides Amylase Lipase Urine WBC (Auto) Vancomycin Trough Crossmatch 12/13/17 12/14/17 12/14/17 22:19 02:03 05:16 WBC RBC Hgb Hct MCV MCH MCHC RDW Plt Count Lymph % (Auto) Eos # Baso # Seg Neutrophils % Seg Neuts % (Manual) Lymphocytes % (Manual) Monocytes % (Manual) Nucleated RBC % Seg Neutrophils # Seg Neutrophils # Man Lymphocytes # (Manual) Monocytes # (Manual) Eosinophils # (Manual) APTT POC ABG pH 7.247 L ABG pH POC ABG pCO2 61.2 H POC ABG pO2 53 L ABG pO2 ABG HCO3 ABG O2 Saturation ABG Base Excess ABG Hemoglobin VBG pH Oxyhemoglobin Sodium Potassium Chloride Carbon Dioxide BUN Creatinine Glucose POC Glucose 274 H 295 H Lactic Acid Calcium Phosphorus Total Bilirubin AST ALT C-Reactive Protein Total Protein Albumin Triglycerides Amylase Lipase Urine WBC (Auto) Vancomycin Trough Crossmatch 12/14/17 12/14/17 12/14/17 05:32 12:04 16:22 WBC RBC Hgb Hct MCV MCH MCHC RDW Plt Count Lymph % (Auto) Eos # Baso # Seg Neutrophils % Seg Neuts % (Manual) Lymphocytes % (Manual) Monocytes % (Manual) Nucleated RBC % Seg Neutrophils # Seg Neutrophils # Man Lymphocytes # (Manual) Monocytes # (Manual) Eosinophils # (Manual) APTT POC ABG pH ABG pH POC ABG pCO2 POC ABG pO2 ABG pO2 ABG HCO3 ABG O2 Saturation ABG Base Excess ABG Hemoglobin VBG pH Oxyhemoglobin Sodium Potassium Chloride Carbon Dioxide BUN Creatinine Glucose POC Glucose 230 H 241 H 231 H Lactic Acid Calcium Phosphorus Total Bilirubin AST ALT C-Reactive Protein Total Protein Albumin Triglycerides Amylase Lipase Urine WBC (Auto) Vancomycin Trough Crossmatch 12/14/17 12/15/17 12/15/17 21:29 02:29 03:25 WBC RBC Hgb Hct MCV MCH MCHC RDW Plt Count Lymph % (Auto) Eos # Baso # Seg Neutrophils % Seg Neuts % (Manual) Lymphocytes % (Manual) Monocytes % (Manual) Nucleated RBC % Seg Neutrophils # Seg Neutrophils # Man Lymphocytes # (Manual) Monocytes # (Manual) Eosinophils # (Manual) APTT POC ABG pH 7.330 L ABG pH POC ABG pCO2 55.3 H POC ABG pO2 59 L ABG pO2 ABG HCO3 ABG O2 Saturation ABG Base Excess ABG Hemoglobin VBG pH Oxyhemoglobin Sodium Potassium Chloride Carbon Dioxide BUN Creatinine Glucose POC Glucose 258 H 246 H Lactic Acid Calcium Phosphorus Total Bilirubin AST ALT C-Reactive Protein Total Protein Albumin Triglycerides Amylase Lipase Urine WBC (Auto) Vancomycin Trough Crossmatch 12/15/17 12/15/17 12/15/17 04:05 04:05 04:05 WBC 15.0 H RBC 3.40 L Hgb 11.3 L D Hct 33.8 L D MCV 100 H MCH 33 H MCHC RDW Plt Count 48 L Lymph % (Auto) Eos # Baso # Seg Neutrophils % Seg Neuts % (Manual) Lymphocytes % (Manual) 3.0 L Monocytes % (Manual) Nucleated RBC % 2.0 H Seg Neutrophils # Seg Neutrophils # Man Lymphocytes # (Manual) 0.5 L Monocytes # (Manual) 0.9 H Eosinophils # (Manual) APTT 20.9 L POC ABG pH ABG pH POC ABG pCO2 POC ABG pO2 ABG pO2 ABG HCO3 ABG O2 Saturation ABG Base Excess ABG Hemoglobin VBG pH Oxyhemoglobin Sodium Potassium Chloride Carbon Dioxide BUN 27 H Creatinine Glucose 258 H POC Glucose Lactic Acid Calcium 8.1 L Phosphorus Total Bilirubin AST ALT C-Reactive Protein Total Protein Albumin Triglycerides Amylase Lipase Urine WBC (Auto) Vancomycin Trough Crossmatch 12/15/17 12/15/17 12/15/17 05:32 11:17 14:59 WBC RBC Hgb Hct MCV MCH MCHC RDW Plt Count Lymph % (Auto) Eos # Baso # Seg Neutrophils % Seg Neuts % (Manual) Lymphocytes % (Manual) Monocytes % (Manual) Nucleated RBC % Seg Neutrophils # Seg Neutrophils # Man Lymphocytes # (Manual) Monocytes # (Manual) Eosinophils # (Manual) APTT POC ABG pH ABG pH POC ABG pCO2 POC ABG pO2 ABG pO2 ABG HCO3 ABG O2 Saturation ABG Base Excess ABG Hemoglobin VBG pH Oxyhemoglobin Sodium Potassium Chloride Carbon Dioxide BUN Creatinine Glucose POC Glucose 247 H 268 H 233 H Lactic Acid Calcium Phosphorus Total Bilirubin AST ALT C-Reactive Protein Total Protein Albumin Triglycerides Amylase Lipase Urine WBC (Auto) Vancomycin Trough Crossmatch 12/15/17 12/15/17 12/15/17 17:00 18:59 21:37 WBC RBC Hgb Hct MCV MCH MCHC RDW Plt Count Lymph % (Auto) Eos # Baso # Seg Neutrophils % Seg Neuts % (Manual) Lymphocytes % (Manual) Monocytes % (Manual) Nucleated RBC % Seg Neutrophils # Seg Neutrophils # Man Lymphocytes # (Manual) Monocytes # (Manual) Eosinophils # (Manual) APTT POC ABG pH ABG pH POC ABG pCO2 POC ABG pO2 ABG pO2 ABG HCO3 ABG O2 Saturation ABG Base Excess ABG Hemoglobin VBG pH Oxyhemoglobin Sodium Potassium Chloride Carbon Dioxide BUN Creatinine Glucose POC Glucose 195 H 208 H Lactic Acid Calcium Phosphorus Total Bilirubin AST ALT C-Reactive Protein Total Protein Albumin Triglycerides Amylase Lipase Urine WBC (Auto) 38.0 H Vancomycin Trough Crossmatch 12/16/17 12/16/17 12/16/17 03:17 03:33 04:18 WBC 16.4 H RBC 3.50 L Hgb 11.3 L Hct 35.4 L MCV 101 H MCH MCHC RDW Plt Count 54 L Lymph % (Auto) Eos # Baso # Seg Neutrophils % Seg Neuts % (Manual) Lymphocytes % (Manual) Monocytes % (Manual) Nucleated RBC % Seg Neutrophils # Seg Neutrophils # Man Lymphocytes # (Manual) Monocytes # (Manual) Eosinophils # (Manual) APTT POC ABG pH ABG pH POC ABG pCO2 47.7 H POC ABG pO2 ABG pO2 ABG HCO3 ABG O2 Saturation ABG Base Excess ABG Hemoglobin VBG pH Oxyhemoglobin Sodium Potassium Chloride Carbon Dioxide BUN Creatinine Glucose POC Glucose 227 H Lactic Acid Calcium Phosphorus Total Bilirubin AST ALT C-Reactive Protein Total Protein Albumin Triglycerides Amylase Lipase Urine WBC (Auto) Vancomycin Trough Crossmatch 12/16/17 12/16/17 12/16/17 04:18 05:08 10:01 WBC RBC Hgb Hct MCV MCH MCHC RDW Plt Count Lymph % (Auto) Eos # Baso # Seg Neutrophils % Seg Neuts % (Manual) Lymphocytes % (Manual) Monocytes % (Manual) Nucleated RBC % Seg Neutrophils # Seg Neutrophils # Man Lymphocytes # (Manual) Monocytes # (Manual) Eosinophils # (Manual) APTT POC ABG pH ABG pH POC ABG pCO2 POC ABG pO2 ABG pO2 ABG HCO3 ABG O2 Saturation ABG Base Excess ABG Hemoglobin VBG pH Oxyhemoglobin Sodium 147 H Potassium Chloride 107.4 H Carbon Dioxide BUN 28 H Creatinine Glucose 240 H POC Glucose 227 H 190 H Lactic Acid Calcium 8.3 L Phosphorus Total Bilirubin AST ALT C-Reactive Protein Total Protein Albumin Triglycerides Amylase Lipase Urine WBC (Auto) Vancomycin Trough Crossmatch 12/16/17 12/16/17 12/16/17 14:15 17:51 21:14 WBC RBC Hgb Hct MCV MCH MCHC RDW Plt Count Lymph % (Auto) Eos # Baso # Seg Neutrophils % Seg Neuts % (Manual) Lymphocytes % (Manual) Monocytes % (Manual) Nucleated RBC % Seg Neutrophils # Seg Neutrophils # Man Lymphocytes # (Manual) Monocytes # (Manual) Eosinophils # (Manual) APTT POC ABG pH ABG pH POC ABG pCO2 POC ABG pO2 ABG pO2 ABG HCO3 ABG O2 Saturation ABG Base Excess ABG Hemoglobin VBG pH Oxyhemoglobin Sodium Potassium Chloride Carbon Dioxide BUN Creatinine Glucose POC Glucose 279 H 272 H 260 H Lactic Acid Calcium Phosphorus Total Bilirubin AST ALT C-Reactive Protein Total Protein Albumin Triglycerides Amylase Lipase Urine WBC (Auto) Vancomycin Trough Crossmatch 12/17/17 12/17/17 12/17/17 02:41 04:28 04:28 WBC 19.1 H RBC 3.50 L Hgb 11.4 L Hct 35.3 L MCV 101 H MCH 33 H MCHC RDW Plt Count 65 L Lymph % (Auto) Eos # Baso # Seg Neutrophils % Seg Neuts % (Manual) Lymphocytes % (Manual) Monocytes % (Manual) Nucleated RBC % Seg Neutrophils # Seg Neutrophils # Man Lymphocytes # (Manual) Monocytes # (Manual) Eosinophils # (Manual) APTT POC ABG pH ABG pH POC ABG pCO2 POC ABG pO2 ABG pO2 ABG HCO3 ABG O2 Saturation ABG Base Excess ABG Hemoglobin VBG pH Oxyhemoglobin Sodium 153 H Potassium Chloride 111.2 H Carbon Dioxide 31 H BUN 28 H Creatinine Glucose 248 H POC Glucose 300 H Lactic Acid Calcium Phosphorus Total Bilirubin AST ALT C-Reactive Protein Total Protein Albumin Triglycerides Amylase Lipase Urine WBC (Auto) Vancomycin Trough Crossmatch 12/17/17 12/17/17 12/17/17 05:15 05:38 10:16 WBC RBC Hgb Hct MCV MCH MCHC RDW Plt Count Lymph % (Auto) Eos # Baso # Seg Neutrophils % Seg Neuts % (Manual) Lymphocytes % (Manual) Monocytes % (Manual) Nucleated RBC % Seg Neutrophils # Seg Neutrophils # Man Lymphocytes # (Manual) Monocytes # (Manual) Eosinophils # (Manual) APTT POC ABG pH ABG pH POC ABG pCO2 50.3 H POC ABG pO2 120 H ABG pO2 ABG HCO3 ABG O2 Saturation ABG Base Excess ABG Hemoglobin VBG pH Oxyhemoglobin Sodium Potassium Chloride Carbon Dioxide BUN Creatinine Glucose POC Glucose 231 H 196 H Lactic Acid Calcium Phosphorus Total Bilirubin AST ALT C-Reactive Protein Total Protein Albumin Triglycerides Amylase Lipase Urine WBC (Auto) Vancomycin Trough Crossmatch 12/17/17 12/17/17 12/17/17 14:22 18:14 21:35 WBC RBC Hgb Hct MCV MCH MCHC RDW Plt Count Lymph % (Auto) Eos # Baso # Seg Neutrophils % Seg Neuts % (Manual) Lymphocytes % (Manual) Monocytes % (Manual) Nucleated RBC % Seg Neutrophils # Seg Neutrophils # Man Lymphocytes # (Manual) Monocytes # (Manual) Eosinophils # (Manual) APTT POC ABG pH ABG pH POC ABG pCO2 POC ABG pO2 ABG pO2 ABG HCO3 ABG O2 Saturation ABG Base Excess ABG Hemoglobin VBG pH Oxyhemoglobin Sodium Potassium Chloride Carbon Dioxide BUN Creatinine Glucose POC Glucose 234 H 215 H 159 H Lactic Acid Calcium Phosphorus Total Bilirubin AST ALT C-Reactive Protein Total Protein Albumin Triglycerides Amylase Lipase Urine WBC (Auto) Vancomycin Trough Crossmatch 12/18/17 12/18/17 12/18/17 00:53 02:58 06:03 WBC RBC Hgb Hct MCV MCH MCHC RDW Plt Count Lymph % (Auto) Eos # Baso # Seg Neutrophils % Seg Neuts % (Manual) Lymphocytes % (Manual) Monocytes % (Manual) Nucleated RBC % Seg Neutrophils # Seg Neutrophils # Man Lymphocytes # (Manual) Monocytes # (Manual) Eosinophils # (Manual) APTT POC ABG pH ABG pH POC ABG pCO2 56.4 H POC ABG pO2 46 L ABG pO2 ABG HCO3 ABG O2 Saturation ABG Base Excess ABG Hemoglobin VBG pH Oxyhemoglobin Sodium Potassium Chloride Carbon Dioxide BUN Creatinine Glucose POC Glucose 176 H 143 H Lactic Acid Calcium Phosphorus Total Bilirubin AST ALT C-Reactive Protein Total Protein Albumin Triglycerides Amylase Lipase Urine WBC (Auto) Vancomycin Trough Crossmatch 12/18/17 12/18/17 12/18/17 07:59 09:20 09:20 WBC 27.4 H RBC 3.57 L Hgb 11.4 L Hct MCV 101 H MCH MCHC RDW Plt Count 64 L Lymph % (Auto) Eos # Baso # Seg Neutrophils % Seg Neuts % (Manual) Lymphocytes % (Manual) Monocytes % (Manual) Nucleated RBC % Seg Neutrophils # Seg Neutrophils # Man Lymphocytes # (Manual) Monocytes # (Manual) Eosinophils # (Manual) APTT POC ABG pH ABG pH POC ABG pCO2 POC ABG pO2 ABG pO2 ABG HCO3 ABG O2 Saturation ABG Base Excess ABG Hemoglobin VBG pH Oxyhemoglobin Sodium 152 H Potassium Chloride 107.9 H Carbon Dioxide 34 H BUN 23 H Creatinine 0.7 L Glucose 181 H POC Glucose 197 H Lactic Acid Calcium Phosphorus Total Bilirubin AST ALT C-Reactive Protein Total Protein Albumin Triglycerides Amylase Lipase Urine WBC (Auto) Vancomycin Trough Crossmatch 12/18/17 12/18/17 12/18/17 10:22 15:03 18:15 WBC RBC Hgb Hct MCV MCH MCHC RDW Plt Count Lymph % (Auto) Eos # Baso # Seg Neutrophils % Seg Neuts % (Manual) Lymphocytes % (Manual) Monocytes % (Manual) Nucleated RBC % Seg Neutrophils # Seg Neutrophils # Man Lymphocytes # (Manual) Monocytes # (Manual) Eosinophils # (Manual) APTT POC ABG pH ABG pH POC ABG pCO2 POC ABG pO2 ABG pO2 ABG HCO3 ABG O2 Saturation ABG Base Excess ABG Hemoglobin VBG pH Oxyhemoglobin Sodium Potassium Chloride Carbon Dioxide BUN Creatinine Glucose POC Glucose 195 H 225 H 238 H Lactic Acid Calcium Phosphorus Total Bilirubin AST ALT C-Reactive Protein Total Protein Albumin Triglycerides Amylase Lipase Urine WBC (Auto) Vancomycin Trough Crossmatch 12/18/17 12/18/17 12/19/17 18:29 21:53 00:18 WBC RBC Hgb Hct MCV MCH MCHC RDW Plt Count Lymph % (Auto) Eos # Baso # Seg Neutrophils % Seg Neuts % (Manual) Lymphocytes % (Manual) Monocytes % (Manual) Nucleated RBC % Seg Neutrophils # Seg Neutrophils # Man Lymphocytes # (Manual) Monocytes # (Manual) Eosinophils # (Manual) APTT POC ABG pH 7.476 H ABG pH POC ABG pCO2 50.4 H POC ABG pO2 158 H ABG pO2 ABG HCO3 ABG O2 Saturation ABG Base Excess ABG Hemoglobin VBG pH Oxyhemoglobin Sodium Potassium Chloride Carbon Dioxide BUN Creatinine Glucose POC Glucose 231 H 263 H Lactic Acid Calcium Phosphorus Total Bilirubin AST ALT C-Reactive Protein Total Protein Albumin Triglycerides Amylase Lipase Urine WBC (Auto) Vancomycin Trough Crossmatch 12/19/17 12/19/17 12/19/17 02:09 04:07 04:07 WBC 25.9 H RBC 3.25 L Hgb 10.6 L Hct 32.8 L MCV 101 H MCH 33 H MCHC RDW Plt Count 67 L Lymph % (Auto) Eos # Baso # Seg Neutrophils % Seg Neuts % (Manual) Lymphocytes % (Manual) 4.0 L Monocytes % (Manual) Nucleated RBC % Seg Neutrophils # Seg Neutrophils # Man 14.8 H Lymphocytes # (Manual) 1.0 L Monocytes # (Manual) Eosinophils # (Manual) APTT POC ABG pH ABG pH POC ABG pCO2 POC ABG pO2 ABG pO2 ABG HCO3 ABG O2 Saturation ABG Base Excess ABG Hemoglobin VBG pH Oxyhemoglobin Sodium 148 H Potassium Chloride Carbon Dioxide BUN 31 H Creatinine Glucose 314 H POC Glucose 300 H Lactic Acid Calcium 8.1 L Phosphorus Total Bilirubin AST ALT C-Reactive Protein Total Protein Albumin Triglycerides Amylase Lipase Urine WBC (Auto) Vancomycin Trough Crossmatch 12/19/17 12/19/17 12/19/17 05:15 05:41 07:57 WBC RBC Hgb Hct MCV MCH MCHC RDW Plt Count Lymph % (Auto) Eos # Baso # Seg Neutrophils % Seg Neuts % (Manual) Lymphocytes % (Manual) Monocytes % (Manual) Nucleated RBC % Seg Neutrophils # Seg Neutrophils # Man Lymphocytes # (Manual) Monocytes # (Manual) Eosinophils # (Manual) APTT POC ABG pH 7.507 H ABG pH POC ABG pCO2 POC ABG pO2 ABG pO2 ABG HCO3 ABG O2 Saturation ABG Base Excess ABG Hemoglobin VBG pH Oxyhemoglobin Sodium Potassium Chloride Carbon Dioxide BUN Creatinine Glucose POC Glucose 331 H 307 H Lactic Acid Calcium Phosphorus Total Bilirubin AST ALT C-Reactive Protein Total Protein Albumin Triglycerides Amylase Lipase Urine WBC (Auto) Vancomycin Trough Crossmatch 12/19/17 12/19/17 12/19/17 10:21 14:48 17:59 WBC RBC Hgb Hct MCV MCH MCHC RDW Plt Count Lymph % (Auto) Eos # Baso # Seg Neutrophils % Seg Neuts % (Manual) Lymphocytes % (Manual) Monocytes % (Manual) Nucleated RBC % Seg Neutrophils # Seg Neutrophils # Man Lymphocytes # (Manual) Monocytes # (Manual) Eosinophils # (Manual) APTT POC ABG pH ABG pH POC ABG pCO2 POC ABG pO2 ABG pO2 ABG HCO3 ABG O2 Saturation ABG Base Excess ABG Hemoglobin VBG pH Oxyhemoglobin Sodium Potassium Chloride Carbon Dioxide BUN Creatinine Glucose POC Glucose 358 H 327 H 355 H Lactic Acid Calcium Phosphorus Total Bilirubin AST ALT C-Reactive Protein Total Protein Albumin Triglycerides Amylase Lipase Urine WBC (Auto) Vancomycin Trough Crossmatch 12/19/17 12/20/17 12/20/17 21:38 02:21 03:42 WBC RBC Hgb Hct MCV MCH MCHC RDW Plt Count Lymph % (Auto) Eos # Baso # Seg Neutrophils % Seg Neuts % (Manual) Lymphocytes % (Manual) Monocytes % (Manual) Nucleated RBC % Seg Neutrophils # Seg Neutrophils # Man Lymphocytes # (Manual) Monocytes # (Manual) Eosinophils # (Manual) APTT POC ABG pH 7.494 H ABG pH POC ABG pCO2 POC ABG pO2 ABG pO2 ABG HCO3 ABG O2 Saturation ABG Base Excess ABG Hemoglobin VBG pH Oxyhemoglobin Sodium Potassium Chloride Carbon Dioxide BUN Creatinine Glucose POC Glucose 329 H 354 H Lactic Acid Calcium Phosphorus Total Bilirubin AST ALT C-Reactive Protein Total Protein Albumin Triglycerides Amylase Lipase Urine WBC (Auto) Vancomycin Trough Crossmatch 12/20/17 12/20/17 12/20/17 04:08 04:08 04:08 WBC 22.7 H RBC 3.26 L Hgb 10.6 L Hct 32.9 L MCV 101 H MCH 33 H MCHC RDW Plt Count 78 L Lymph % (Auto) Eos # Baso # Seg Neutrophils % Seg Neuts % (Manual) 80.0 H Lymphocytes % (Manual) 6.0 L Monocytes % (Manual) Nucleated RBC % Seg Neutrophils # Seg Neutrophils # Man 18.2 H Lymphocytes # (Manual) Monocytes # (Manual) Eosinophils # (Manual) APTT POC ABG pH ABG pH POC ABG pCO2 POC ABG pO2 ABG pO2 ABG HCO3 ABG O2 Saturation ABG Base Excess ABG Hemoglobin VBG pH Oxyhemoglobin Sodium Potassium Chloride Carbon Dioxide 31 H BUN 30 H Creatinine 0.6 L Glucose 365 H POC Glucose Lactic Acid Calcium Phosphorus Total Bilirubin AST ALT C-Reactive Protein Total Protein Albumin Triglycerides 981 H Amylase Lipase Urine WBC (Auto) Vancomycin Trough Crossmatch 12/20/17 12/20/17 12/20/17 05:15 10:47 13:40 WBC RBC Hgb Hct MCV MCH MCHC RDW Plt Count Lymph % (Auto) Eos # Baso # Seg Neutrophils % Seg Neuts % (Manual) Lymphocytes % (Manual) Monocytes % (Manual) Nucleated RBC % Seg Neutrophils # Seg Neutrophils # Man Lymphocytes # (Manual) Monocytes # (Manual) Eosinophils # (Manual) APTT POC ABG pH ABG pH POC ABG pCO2 POC ABG pO2 ABG pO2 ABG HCO3 ABG O2 Saturation ABG Base Excess ABG Hemoglobin VBG pH Oxyhemoglobin Sodium Potassium Chloride Carbon Dioxide BUN Creatinine Glucose POC Glucose 342 H 330 H Lactic Acid Calcium Phosphorus Total Bilirubin AST ALT C-Reactive Protein 7.10 H Total Protein Albumin Triglycerides Amylase Lipase Urine WBC (Auto) Vancomycin Trough Crossmatch 12/20/17 12/20/17 12/20/17 13:40 14:52 16:55 WBC RBC Hgb Hct MCV MCH MCHC RDW Plt Count Lymph % (Auto) Eos # Baso # Seg Neutrophils % Seg Neuts % (Manual) Lymphocytes % (Manual) Monocytes % (Manual) Nucleated RBC % Seg Neutrophils # Seg Neutrophils # Man Lymphocytes # (Manual) Monocytes # (Manual) Eosinophils # (Manual) APTT POC ABG pH 7.484 H ABG pH POC ABG pCO2 POC ABG pO2 ABG pO2 ABG HCO3 ABG O2 Saturation ABG Base Excess ABG Hemoglobin VBG pH Oxyhemoglobin Sodium Potassium Chloride Carbon Dioxide BUN Creatinine Glucose POC Glucose 293 H Lactic Acid Calcium Phosphorus Total Bilirubin AST ALT C-Reactive Protein Total Protein Albumin Triglycerides 1042 H Amylase Lipase Urine WBC (Auto) Vancomycin Trough Crossmatch 12/20/17 12/20/17 12/21/17 18:00 21:58 02:05 WBC RBC Hgb Hct MCV MCH MCHC RDW Plt Count Lymph % (Auto) Eos # Baso # Seg Neutrophils % Seg Neuts % (Manual) Lymphocytes % (Manual) Monocytes % (Manual) Nucleated RBC % Seg Neutrophils # Seg Neutrophils # Man Lymphocytes # (Manual) Monocytes # (Manual) Eosinophils # (Manual) APTT POC ABG pH ABG pH POC ABG pCO2 POC ABG pO2 ABG pO2 ABG HCO3 ABG O2 Saturation ABG Base Excess ABG Hemoglobin VBG pH Oxyhemoglobin Sodium Potassium Chloride Carbon Dioxide BUN Creatinine Glucose POC Glucose 268 H 272 H 229 H Lactic Acid Calcium Phosphorus Total Bilirubin AST ALT C-Reactive Protein Total Protein Albumin Triglycerides Amylase Lipase Urine WBC (Auto) Vancomycin Trough Crossmatch 12/21/17 12/21/17 12/21/17 03:59 06:23 08:57 WBC RBC Hgb Hct MCV MCH MCHC RDW Plt Count Lymph % (Auto) Eos # Baso # Seg Neutrophils % Seg Neuts % (Manual) Lymphocytes % (Manual) Monocytes % (Manual) Nucleated RBC % Seg Neutrophils # Seg Neutrophils # Man Lymphocytes # (Manual) Monocytes # (Manual) Eosinophils # (Manual) APTT POC ABG pH 7.474 H ABG pH POC ABG pCO2 POC ABG pO2 71 L ABG pO2 ABG HCO3 ABG O2 Saturation ABG Base Excess ABG Hemoglobin VBG pH Oxyhemoglobin Sodium Potassium Chloride Carbon Dioxide BUN Creatinine Glucose POC Glucose 182 H 217 H Lactic Acid Calcium Phosphorus Total Bilirubin AST ALT C-Reactive Protein Total Protein Albumin Triglycerides Amylase Lipase Urine WBC (Auto) Vancomycin Trough Crossmatch 12/21/17 12/21/17 12/21/17 13:59 18:00 21:20 WBC RBC Hgb Hct MCV MCH MCHC RDW Plt Count Lymph % (Auto) Eos # Baso # Seg Neutrophils % Seg Neuts % (Manual) Lymphocytes % (Manual) Monocytes % (Manual) Nucleated RBC % Seg Neutrophils # Seg Neutrophils # Man Lymphocytes # (Manual) Monocytes # (Manual) Eosinophils # (Manual) APTT POC ABG pH ABG pH POC ABG pCO2 POC ABG pO2 ABG pO2 ABG HCO3 ABG O2 Saturation ABG Base Excess ABG Hemoglobin VBG pH Oxyhemoglobin Sodium Potassium Chloride Carbon Dioxide BUN Creatinine Glucose POC Glucose 185 H 176 H 187 H Lactic Acid Calcium Phosphorus Total Bilirubin AST ALT C-Reactive Protein Total Protein Albumin Triglycerides Amylase Lipase Urine WBC (Auto) Vancomycin Trough Crossmatch 12/21/17 12/22/17 12/22/17 23:48 04:39 05:30 WBC RBC Hgb Hct MCV MCH MCHC RDW Plt Count Lymph % (Auto) Eos # Baso # Seg Neutrophils % Seg Neuts % (Manual) Lymphocytes % (Manual) Monocytes % (Manual) Nucleated RBC % Seg Neutrophils # Seg Neutrophils # Man Lymphocytes # (Manual) Monocytes # (Manual) Eosinophils # (Manual) APTT POC ABG pH 7.528 H ABG pH POC ABG pCO2 POC ABG pO2 63 L ABG pO2 ABG HCO3 ABG O2 Saturation ABG Base Excess ABG Hemoglobin VBG pH Oxyhemoglobin Sodium Potassium Chloride Carbon Dioxide BUN Creatinine Glucose POC Glucose 126 H 117 H Lactic Acid Calcium Phosphorus Total Bilirubin AST ALT C-Reactive Protein Total Protein Albumin Triglycerides Amylase Lipase Urine WBC (Auto) Vancomycin Trough Crossmatch 12/22/17 12/22/17 12/22/17 09:12 10:34 10:34 WBC 29.5 H RBC 3.44 L Hgb 11.2 L Hct 34.2 L MCV 99 H MCH 33 H MCHC RDW 13.1 L Plt Count 97 L Lymph % (Auto) Eos # Baso # Seg Neutrophils % Seg Neuts % (Manual) 88.0 H Lymphocytes % (Manual) 5.0 L Monocytes % (Manual) Nucleated RBC % Seg Neutrophils # Seg Neutrophils # Man 26.0 H Lymphocytes # (Manual) Monocytes # (Manual) Eosinophils # (Manual) APTT POC ABG pH ABG pH POC ABG pCO2 POC ABG pO2 ABG pO2 ABG HCO3 ABG O2 Saturation ABG Base Excess ABG Hemoglobin VBG pH Oxyhemoglobin Sodium 146 H Potassium 3.1 L Chloride Carbon Dioxide BUN 25 H Creatinine 0.7 L Glucose 146 H POC Glucose 168 H Lactic Acid Calcium 8.1 L Phosphorus Total Bilirubin AST ALT C-Reactive Protein Total Protein Albumin Triglycerides Amylase Lipase Urine WBC (Auto) Vancomycin Trough Crossmatch 12/22/17 12/22/17 12/22/17 14:51 17:21 21:43 WBC RBC Hgb Hct MCV MCH MCHC RDW Plt Count Lymph % (Auto) Eos # Baso # Seg Neutrophils % Seg Neuts % (Manual) Lymphocytes % (Manual) Monocytes % (Manual) Nucleated RBC % Seg Neutrophils # Seg Neutrophils # Man Lymphocytes # (Manual) Monocytes # (Manual) Eosinophils # (Manual) APTT POC ABG pH ABG pH POC ABG pCO2 POC ABG pO2 ABG pO2 ABG HCO3 ABG O2 Saturation ABG Base Excess ABG Hemoglobin VBG pH Oxyhemoglobin Sodium Potassium Chloride Carbon Dioxide BUN Creatinine Glucose POC Glucose 125 H 110 H 153 H Lactic Acid Calcium Phosphorus Total Bilirubin AST ALT C-Reactive Protein Total Protein Albumin Triglycerides Amylase Lipase Urine WBC (Auto) Vancomycin Trough Crossmatch 12/23/17 12/23/17 12/23/17 04:33 05:28 09:25 WBC 31.4 H RBC 3.05 L Hgb 9.8 L Hct 30.2 L MCV 99 H MCH MCHC RDW 12.9 L Plt Count 101 L Lymph % (Auto) Eos # Baso # Seg Neutrophils % Seg Neuts % (Manual) 97 H Lymphocytes % (Manual) 2 L Monocytes % (Manual) Nucleated RBC % Seg Neutrophils # Seg Neutrophils # Man 31.1 H Lymphocytes # (Manual) 0.5 L Monocytes # (Manual) Eosinophils # (Manual) APTT POC ABG pH 7.573 H ABG pH POC ABG pCO2 31.0 L POC ABG pO2 63 L ABG pO2 ABG HCO3 ABG O2 Saturation ABG Base Excess ABG Hemoglobin VBG pH Oxyhemoglobin Sodium Potassium Chloride Carbon Dioxide BUN Creatinine Glucose POC Glucose 124 H Lactic Acid Calcium Phosphorus Total Bilirubin AST ALT C-Reactive Protein Total Protein Albumin Triglycerides Amylase Lipase Urine WBC (Auto) Vancomycin Trough Crossmatch 12/23/17 12/23/17 12/23/17 09:25 10:08 14:20 WBC RBC Hgb Hct MCV MCH MCHC RDW Plt Count Lymph % (Auto) Eos # Baso # Seg Neutrophils % Seg Neuts % (Manual) Lymphocytes % (Manual) Monocytes % (Manual) Nucleated RBC % Seg Neutrophils # Seg Neutrophils # Man Lymphocytes # (Manual) Monocytes # (Manual) Eosinophils # (Manual) APTT POC ABG pH ABG pH POC ABG pCO2 POC ABG pO2 ABG pO2 ABG HCO3 ABG O2 Saturation ABG Base Excess ABG Hemoglobin VBG pH Oxyhemoglobin Sodium Potassium 3.1 L Chloride Carbon Dioxide BUN Creatinine 0.6 L Glucose 169 H POC Glucose 171 H 211 H Lactic Acid Calcium 7.9 L Phosphorus Total Bilirubin AST ALT C-Reactive Protein Total Protein Albumin Triglycerides Amylase Lipase Urine WBC (Auto) Vancomycin Trough Crossmatch 12/23/17 12/23/17 12/24/17 18:59 21:49 01:47 WBC RBC Hgb Hct MCV MCH MCHC RDW Plt Count Lymph % (Auto) Eos # Baso # Seg Neutrophils % Seg Neuts % (Manual) Lymphocytes % (Manual) Monocytes % (Manual) Nucleated RBC % Seg Neutrophils # Seg Neutrophils # Man Lymphocytes # (Manual) Monocytes # (Manual) Eosinophils # (Manual) APTT POC ABG pH ABG pH POC ABG pCO2 POC ABG pO2 ABG pO2 ABG HCO3 ABG O2 Saturation ABG Base Excess ABG Hemoglobin VBG pH Oxyhemoglobin Sodium Potassium Chloride Carbon Dioxide BUN Creatinine Glucose POC Glucose 175 H 146 H 143 H Lactic Acid Calcium Phosphorus Total Bilirubin AST ALT C-Reactive Protein Total Protein Albumin Triglycerides Amylase Lipase Urine WBC (Auto) Vancomycin Trough Crossmatch 12/24/17 12/24/17 12/24/17 05:40 10:12 13:12 WBC RBC Hgb Hct MCV MCH MCHC RDW Plt Count Lymph % (Auto) Eos # Baso # Seg Neutrophils % Seg Neuts % (Manual) Lymphocytes % (Manual) Monocytes % (Manual) Nucleated RBC % Seg Neutrophils # Seg Neutrophils # Man Lymphocytes # (Manual) Monocytes # (Manual) Eosinophils # (Manual) APTT POC ABG pH 7.558 H ABG pH POC ABG pCO2 27.6 L POC ABG pO2 71 L ABG pO2 ABG HCO3 ABG O2 Saturation ABG Base Excess ABG Hemoglobin VBG pH Oxyhemoglobin Sodium Potassium Chloride Carbon Dioxide BUN Creatinine Glucose POC Glucose 118 H 111 H Lactic Acid Calcium Phosphorus Total Bilirubin AST ALT C-Reactive Protein Total Protein Albumin Triglycerides Amylase Lipase Urine WBC (Auto) Vancomycin Trough Crossmatch 12/24/17 12/24/17 12/24/17 16:26 20:44 21:49 WBC RBC Hgb Hct MCV MCH MCHC RDW Plt Count Lymph % (Auto) Eos # Baso # Seg Neutrophils % Seg Neuts % (Manual) Lymphocytes % (Manual) Monocytes % (Manual) Nucleated RBC % Seg Neutrophils # Seg Neutrophils # Man Lymphocytes # (Manual) Monocytes # (Manual) Eosinophils # (Manual) APTT POC ABG pH ABG pH POC ABG pCO2 POC ABG pO2 ABG pO2 ABG HCO3 ABG O2 Saturation ABG Base Excess ABG Hemoglobin VBG pH Oxyhemoglobin Sodium Potassium Chloride Carbon Dioxide BUN Creatinine Glucose POC Glucose 113 H 124 H 115 H Lactic Acid Calcium Phosphorus Total Bilirubin AST ALT C-Reactive Protein Total Protein Albumin Triglycerides Amylase Lipase Urine WBC (Auto) Vancomycin Trough Crossmatch 12/24/17 12/25/17 12/25/17 Unknown 02:26 03:38 WBC RBC Hgb Hct MCV MCH MCHC RDW Plt Count Lymph % (Auto) Eos # Baso # Seg Neutrophils % Seg Neuts % (Manual) Lymphocytes % (Manual) Monocytes % (Manual) Nucleated RBC % Seg Neutrophils # Seg Neutrophils # Man Lymphocytes # (Manual) Monocytes # (Manual) Eosinophils # (Manual) APTT POC ABG pH 7.503 H ABG pH POC ABG pCO2 POC ABG pO2 66 L ABG pO2 ABG HCO3 ABG O2 Saturation ABG Base Excess ABG Hemoglobin VBG pH Oxyhemoglobin Sodium Potassium 3.0 L Chloride Carbon Dioxide BUN Creatinine 0.5 L Glucose 166 H POC Glucose 106 H Lactic Acid Calcium 7.8 L Phosphorus Total Bilirubin AST ALT C-Reactive Protein Total Protein Albumin Triglycerides Amylase Lipase Urine WBC (Auto) Vancomycin Trough Crossmatch 12/25/17 12/25/17 12/25/17 04:58 12:58 15:06 WBC RBC Hgb Hct MCV MCH MCHC RDW Plt Count Lymph % (Auto) Eos # Baso # Seg Neutrophils % Seg Neuts % (Manual) Lymphocytes % (Manual) Monocytes % (Manual) Nucleated RBC % Seg Neutrophils # Seg Neutrophils # Man Lymphocytes # (Manual) Monocytes # (Manual) Eosinophils # (Manual) APTT POC ABG pH ABG pH POC ABG pCO2 POC ABG pO2 ABG pO2 ABG HCO3 ABG O2 Saturation ABG Base Excess ABG Hemoglobin VBG pH Oxyhemoglobin Sodium Potassium Chloride Carbon Dioxide BUN Creatinine Glucose POC Glucose 113 H 118 H Lactic Acid Calcium Phosphorus Total Bilirubin AST ALT C-Reactive Protein Total Protein Albumin Triglycerides Amylase Lipase Urine WBC (Auto) Vancomycin Trough 22.5 H Crossmatch 12/25/17 12/25/17 12/25/17 17:59 21:33 Unknown WBC 20.5 H RBC 2.75 L Hgb 9.1 L Hct 27.1 L MCV 99 H MCH 33 H MCHC RDW Plt Count 126 L Lymph % (Auto) Eos # Baso # Seg Neutrophils % Seg Neuts % (Manual) 89.0 H Lymphocytes % (Manual) 6.0 L Monocytes % (Manual) Nucleated RBC % Seg Neutrophils # Seg Neutrophils # Man 18.2 H Lymphocytes # (Manual) Monocytes # (Manual) Eosinophils # (Manual) APTT POC ABG pH ABG pH POC ABG pCO2 POC ABG pO2 ABG pO2 ABG HCO3 ABG O2 Saturation ABG Base Excess ABG Hemoglobin VBG pH Oxyhemoglobin Sodium Potassium Chloride Carbon Dioxide BUN Creatinine Glucose POC Glucose 145 H 167 H Lactic Acid Calcium Phosphorus Total Bilirubin AST ALT C-Reactive Protein Total Protein Albumin Triglycerides Amylase Lipase Urine WBC (Auto) Vancomycin Trough Crossmatch 12/25/17 12/26/17 12/26/17 Unknown 02:26 05:29 WBC RBC Hgb Hct MCV MCH MCHC RDW Plt Count Lymph % (Auto) Eos # Baso # Seg Neutrophils % Seg Neuts % (Manual) Lymphocytes % (Manual) Monocytes % (Manual) Nucleated RBC % Seg Neutrophils # Seg Neutrophils # Man Lymphocytes # (Manual) Monocytes # (Manual) Eosinophils # (Manual) APTT POC ABG pH ABG pH POC ABG pCO2 POC ABG pO2 ABG pO2 ABG HCO3 ABG O2 Saturation ABG Base Excess ABG Hemoglobin VBG pH Oxyhemoglobin Sodium Potassium 2.8 L* Chloride Carbon Dioxide BUN Creatinine 0.6 L Glucose POC Glucose 167 H 216 H Lactic Acid Calcium 7.4 L Phosphorus Total Bilirubin AST ALT C-Reactive Protein Total Protein Albumin Triglycerides Amylase Lipase Urine WBC (Auto) Vancomycin Trough Crossmatch 12/26/17 12/26/17 12/26/17 10:21 14:30 18:35 WBC RBC Hgb Hct MCV MCH MCHC RDW Plt Count Lymph % (Auto) Eos # Baso # Seg Neutrophils % Seg Neuts % (Manual) Lymphocytes % (Manual) Monocytes % (Manual) Nucleated RBC % Seg Neutrophils # Seg Neutrophils # Man Lymphocytes # (Manual) Monocytes # (Manual) Eosinophils # (Manual) APTT POC ABG pH ABG pH POC ABG pCO2 POC ABG pO2 ABG pO2 ABG HCO3 ABG O2 Saturation ABG Base Excess ABG Hemoglobin VBG pH Oxyhemoglobin Sodium Potassium Chloride Carbon Dioxide BUN Creatinine Glucose POC Glucose 164 H 157 H 146 H Lactic Acid Calcium Phosphorus Total Bilirubin AST ALT C-Reactive Protein Total Protein Albumin Triglycerides Amylase Lipase Urine WBC (Auto) Vancomycin Trough Crossmatch 12/26/17 12/26/17 12/27/17 21:21 Unknown 01:54 WBC RBC Hgb Hct MCV MCH MCHC RDW Plt Count Lymph % (Auto) Eos # Baso # Seg Neutrophils % Seg Neuts % (Manual) Lymphocytes % (Manual) Monocytes % (Manual) Nucleated RBC % Seg Neutrophils # Seg Neutrophils # Man Lymphocytes # (Manual) Monocytes # (Manual) Eosinophils # (Manual) APTT POC ABG pH ABG pH POC ABG pCO2 POC ABG pO2 ABG pO2 ABG HCO3 ABG O2 Saturation ABG Base Excess ABG Hemoglobin VBG pH Oxyhemoglobin Sodium Potassium 3.0 L Chloride Carbon Dioxide BUN Creatinine 0.5 L Glucose 166 H POC Glucose 132 H 157 H Lactic Acid Calcium 7.8 L Phosphorus Total Bilirubin AST ALT C-Reactive Protein Total Protein Albumin Triglycerides Amylase Lipase Urine WBC (Auto) Vancomycin Trough Crossmatch 12/27/17 12/27/17 12/27/17 05:20 05:20 05:44 WBC 26.4 H RBC 2.83 L Hgb 9.3 L Hct 27.6 L MCV 98 H MCH 33 H MCHC RDW Plt Count Lymph % (Auto) Eos # Baso # Seg Neutrophils % Seg Neuts % (Manual) 85.0 H Lymphocytes % (Manual) 5.0 L Monocytes % (Manual) Nucleated RBC % Seg Neutrophils # Seg Neutrophils # Man 22.4 H Lymphocytes # (Manual) Monocytes # (Manual) Eosinophils # (Manual) 0.5 H APTT POC ABG pH ABG pH POC ABG pCO2 POC ABG pO2 ABG pO2 ABG HCO3 ABG O2 Saturation ABG Base Excess ABG Hemoglobin VBG pH Oxyhemoglobin Sodium Potassium 2.3 L* D Chloride Carbon Dioxide BUN 7 L Creatinine 0.6 L Glucose 123 H POC Glucose 128 H Lactic Acid Calcium 8.1 L Phosphorus Total Bilirubin AST ALT C-Reactive Protein Total Protein Albumin Triglycerides Amylase Lipase Urine WBC (Auto) Vancomycin Trough Crossmatch 12/27/17 12/27/17 12/27/17 10:04 14:44 15:30 WBC RBC Hgb Hct MCV MCH MCHC RDW Plt Count Lymph % (Auto) Eos # Baso # Seg Neutrophils % Seg Neuts % (Manual) Lymphocytes % (Manual) Monocytes % (Manual) Nucleated RBC % Seg Neutrophils # Seg Neutrophils # Man Lymphocytes # (Manual) Monocytes # (Manual) Eosinophils # (Manual) APTT POC ABG pH ABG pH POC ABG pCO2 POC ABG pO2 ABG pO2 ABG HCO3 ABG O2 Saturation ABG Base Excess ABG Hemoglobin VBG pH Oxyhemoglobin Sodium Potassium 3.1 L D Chloride Carbon Dioxide BUN Creatinine Glucose POC Glucose 115 H 128 H Lactic Acid Calcium Phosphorus Total Bilirubin AST ALT C-Reactive Protein Total Protein Albumin Triglycerides Amylase Lipase Urine WBC (Auto) Vancomycin Trough Crossmatch 12/28/17 12/28/17 12/28/17 00:39 02:13 05:17 WBC RBC Hgb Hct MCV MCH MCHC RDW Plt Count Lymph % (Auto) Eos # Baso # Seg Neutrophils % Seg Neuts % (Manual) Lymphocytes % (Manual) Monocytes % (Manual) Nucleated RBC % Seg Neutrophils # Seg Neutrophils # Man Lymphocytes # (Manual) Monocytes # (Manual) Eosinophils # (Manual) APTT POC ABG pH ABG pH 7.497 H POC ABG pCO2 POC ABG pO2 ABG pO2 71.4 L ABG HCO3 29.9 H ABG O2 Saturation ABG Base Excess 6.2 H ABG Hemoglobin 7.9 L VBG pH Oxyhemoglobin 94.9 L Sodium Potassium Chloride Carbon Dioxide BUN Creatinine Glucose POC Glucose 112 H 108 H Lactic Acid Calcium Phosphorus Total Bilirubin AST ALT C-Reactive Protein Total Protein Albumin Triglycerides Amylase Lipase Urine WBC (Auto) Vancomycin Trough Crossmatch 12/28/17 12/28/17 12/28/17 08:47 08:47 09:10 WBC 28.1 H RBC 2.76 L Hgb 9.1 L Hct 27.0 L MCV 98 H MCH 33 H MCHC RDW Plt Count Lymph % (Auto) Eos # Baso # Seg Neutrophils % Seg Neuts % (Manual) Lymphocytes % (Manual) Monocytes % (Manual) Nucleated RBC % Seg Neutrophils # Seg Neutrophils # Man Lymphocytes # (Manual) Monocytes # (Manual) Eosinophils # (Manual) APTT POC ABG pH ABG pH POC ABG pCO2 POC ABG pO2 ABG pO2 ABG HCO3 ABG O2 Saturation ABG Base Excess ABG Hemoglobin VBG pH Oxyhemoglobin Sodium Potassium 2.2 L* D Chloride Carbon Dioxide BUN 5 L Creatinine 0.5 L Glucose 106 H POC Glucose Lactic Acid Calcium 8.3 L Phosphorus 2.20 L Total Bilirubin AST ALT C-Reactive Protein Total Protein Albumin Triglycerides Amylase Lipase Urine WBC (Auto) Vancomycin Trough Crossmatch 12/28/17 12/28/17 12/28/17 13:28 14:22 18:48 WBC RBC Hgb Hct MCV MCH MCHC RDW Plt Count Lymph % (Auto) Eos # Baso # Seg Neutrophils % Seg Neuts % (Manual) Lymphocytes % (Manual) Monocytes % (Manual) Nucleated RBC % Seg Neutrophils # Seg Neutrophils # Man Lymphocytes # (Manual) Monocytes # (Manual) Eosinophils # (Manual) APTT POC ABG pH ABG pH 7.476 H POC ABG pCO2 POC ABG pO2 ABG pO2 167.7 H ABG HCO3 30.9 H ABG O2 Saturation 99.1 H ABG Base Excess 6.7 H ABG Hemoglobin 8.5 L VBG pH Oxyhemoglobin Sodium Potassium Chloride Carbon Dioxide BUN Creatinine Glucose POC Glucose 141 H 129 H Lactic Acid Calcium Phosphorus Total Bilirubin AST ALT C-Reactive Protein Total Protein Albumin Triglycerides Amylase Lipase Urine WBC (Auto) Vancomycin Trough Crossmatch 12/28/17 12/29/17 12/29/17 21:22 02:45 05:11 WBC RBC Hgb Hct MCV MCH MCHC RDW Plt Count Lymph % (Auto) Eos # Baso # Seg Neutrophils % Seg Neuts % (Manual) Lymphocytes % (Manual) Monocytes % (Manual) Nucleated RBC % Seg Neutrophils # Seg Neutrophils # Man Lymphocytes # (Manual) Monocytes # (Manual) Eosinophils # (Manual) APTT POC ABG pH ABG pH POC ABG pCO2 POC ABG pO2 ABG pO2 ABG HCO3 ABG O2 Saturation ABG Base Excess ABG Hemoglobin VBG pH Oxyhemoglobin Sodium Potassium Chloride Carbon Dioxide BUN Creatinine Glucose POC Glucose 123 H 138 H 138 H Lactic Acid Calcium Phosphorus Total Bilirubin AST ALT C-Reactive Protein Total Protein Albumin Triglycerides Amylase Lipase Urine WBC (Auto) Vancomycin Trough Crossmatch 12/29/17 12/29/17 12/29/17 05:50 08:04 08:04 WBC 20.8 H RBC 2.26 L Hgb 7.5 L Hct 22.7 L MCV 100 H MCH 33 H MCHC RDW Plt Count Lymph % (Auto) Eos # Baso # Seg Neutrophils % Seg Neuts % (Manual) 93.0 H Lymphocytes % (Manual) 2.0 L Monocytes % (Manual) Nucleated RBC % Seg Neutrophils # Seg Neutrophils # Man 19.3 H Lymphocytes # (Manual) 0.4 L Monocytes # (Manual) Eosinophils # (Manual) 0.7 H APTT POC ABG pH ABG pH 7.467 H POC ABG pCO2 POC ABG pO2 ABG pO2 ABG HCO3 28.2 H ABG O2 Saturation ABG Base Excess 4.0 H ABG Hemoglobin < 5.1 L VBG pH Oxyhemoglobin Sodium Potassium 3.0 L D Chloride Carbon Dioxide BUN Creatinine 0.5 L Glucose 147 H POC Glucose Lactic Acid Calcium 7.8 L Phosphorus Total Bilirubin AST ALT C-Reactive Protein Total Protein 5.6 L Albumin 2.4 L Triglycerides Amylase Lipase Urine WBC (Auto) Vancomycin Trough Crossmatch 0412/29/17 12/29/17 08:20 10:59 14:09 WBC RBC Hgb Hct MCV MCH MCHC RDW Plt Count Lymph % (Auto) Eos # Baso # Seg Neutrophils % Seg Neuts % (Manual) Lymphocytes % (Manual) Monocytes % (Manual) Nucleated RBC % Seg Neutrophils # Seg Neutrophils # Man Lymphocytes # (Manual) Monocytes # (Manual) Eosinophils # (Manual) APTT POC ABG pH ABG pH POC ABG pCO2 POC ABG pO2 ABG pO2 ABG HCO3 ABG O2 Saturation ABG Base Excess ABG Hemoglobin VBG pH Oxyhemoglobin Sodium Potassium Chloride Carbon Dioxide BUN Creatinine Glucose POC Glucose 153 H 186 H 183 H Lactic Acid Calcium Phosphorus Total Bilirubin AST ALT C-Reactive Protein Total Protein Albumin Triglycerides Amylase Lipase Urine WBC (Auto) Vancomycin Trough Crossmatch 12/29/17 12/29/17 12/29/17 18:03 22:05 22:56 WBC RBC Hgb Hct MCV MCH MCHC RDW Plt Count Lymph % (Auto) Eos # Baso # Seg Neutrophils % Seg Neuts % (Manual) Lymphocytes % (Manual) Monocytes % (Manual) Nucleated RBC % Seg Neutrophils # Seg Neutrophils # Man Lymphocytes # (Manual) Monocytes # (Manual) Eosinophils # (Manual) APTT POC ABG pH ABG pH POC ABG pCO2 POC ABG pO2 ABG pO2 ABG HCO3 ABG O2 Saturation ABG Base Excess ABG Hemoglobin VBG pH Oxyhemoglobin Sodium Potassium Chloride Carbon Dioxide BUN Creatinine Glucose POC Glucose 159 H 146 H 179 H Lactic Acid Calcium Phosphorus Total Bilirubin AST ALT C-Reactive Protein Total Protein Albumin Triglycerides Amylase Lipase Urine WBC (Auto) Vancomycin Trough Crossmatch 12/30/17 12/30/17 12/30/17 02:03 04:50 04:50 WBC 18.3 H RBC 2.22 L Hgb 7.4 L Hct 23.0 L MCV 104 H MCH 33 H MCHC RDW Plt Count 137 L Lymph % (Auto) 9.0 L Eos # 0.5 H Baso # Seg Neutrophils % 84.9 H Seg Neuts % (Manual) Lymphocytes % (Manual) Monocytes % (Manual) Nucleated RBC % Seg Neutrophils # 15.6 H Seg Neutrophils # Man Lymphocytes # (Manual) Monocytes # (Manual) Eosinophils # (Manual) APTT POC ABG pH ABG pH POC ABG pCO2 POC ABG pO2 ABG pO2 ABG HCO3 ABG O2 Saturation ABG Base Excess ABG Hemoglobin VBG pH Oxyhemoglobin Sodium 147 H Potassium 3.1 L D Chloride 107.5 H Carbon Dioxide BUN Creatinine 0.5 L Glucose 120 H POC Glucose 118 H Lactic Acid Calcium 7.4 L Phosphorus Total Bilirubin AST ALT C-Reactive Protein Total Protein Albumin Triglycerides Amylase Lipase Urine WBC (Auto) Vancomycin Trough Crossmatch 12/30/17 12/30/17 12/30/17 05:04 13:53 17:33 WBC RBC Hgb Hct MCV MCH MCHC RDW Plt Count Lymph % (Auto) Eos # Baso # Seg Neutrophils % Seg Neuts % (Manual) Lymphocytes % (Manual) Monocytes % (Manual) Nucleated RBC % Seg Neutrophils # Seg Neutrophils # Man Lymphocytes # (Manual) Monocytes # (Manual) Eosinophils # (Manual) APTT POC ABG pH ABG pH POC ABG pCO2 POC ABG pO2 ABG pO2 ABG HCO3 ABG O2 Saturation ABG Base Excess ABG Hemoglobin VBG pH Oxyhemoglobin Sodium Potassium Chloride Carbon Dioxide BUN Creatinine Glucose POC Glucose 150 H 113 H 145 H Lactic Acid Calcium Phosphorus Total Bilirubin AST ALT C-Reactive Protein Total Protein Albumin Triglycerides Amylase Lipase Urine WBC (Auto) Vancomycin Trough Crossmatch 12/31/17 12/31/17 12/31/17 01:54 03:15 03:15 WBC 17.1 H RBC 2.08 L Hgb 6.9 L Hct 20.6 L MCV 99 H MCH 33 H MCHC RDW 13.1 L Plt Count Lymph % (Auto) 10.5 L Eos # 0.6 H Baso # Seg Neutrophils % 82.3 H Seg Neuts % (Manual) Lymphocytes % (Manual) Monocytes % (Manual) Nucleated RBC % Seg Neutrophils # 14.0 H Seg Neutrophils # Man Lymphocytes # (Manual) Monocytes # (Manual) Eosinophils # (Manual) APTT POC ABG pH ABG pH POC ABG pCO2 POC ABG pO2 ABG pO2 ABG HCO3 ABG O2 Saturation ABG Base Excess ABG Hemoglobin VBG pH Oxyhemoglobin Sodium Potassium 3.5 L Chloride Carbon Dioxide BUN Creatinine 0.6 L Glucose POC Glucose 69 L Lactic Acid Calcium 7.8 L Phosphorus Total Bilirubin AST ALT C-Reactive Protein Total Protein Albumin Triglycerides Amylase Lipase Urine WBC (Auto) Vancomycin Trough Crossmatch 12/31/17 12/31/17 12/31/17 05:15 09:25 10:17 WBC RBC Hgb Hct MCV MCH MCHC RDW Plt Count Lymph % (Auto) Eos # Baso # Seg Neutrophils % Seg Neuts % (Manual) Lymphocytes % (Manual) Monocytes % (Manual) Nucleated RBC % Seg Neutrophils # Seg Neutrophils # Man Lymphocytes # (Manual) Monocytes # (Manual) Eosinophils # (Manual) APTT POC ABG pH ABG pH 7.516 H POC ABG pCO2 POC ABG pO2 ABG pO2 69.2 L ABG HCO3 28.7 H ABG O2 Saturation ABG Base Excess 5.3 H ABG Hemoglobin 6.6 L VBG pH Oxyhemoglobin 93.8 L Sodium Potassium Chloride Carbon Dioxide BUN Creatinine Glucose POC Glucose 143 H Lactic Acid Calcium Phosphorus Total Bilirubin AST ALT C-Reactive Protein Total Protein Albumin Triglycerides Amylase Lipase Urine WBC (Auto) Vancomycin Trough Crossmatch See Detail 12/31/17 12/31/17 12/31/17 14:20 18:30 21:40 WBC RBC Hgb Hct MCV MCH MCHC RDW Plt Count Lymph % (Auto) Eos # Baso # Seg Neutrophils % Seg Neuts % (Manual) Lymphocytes % (Manual) Monocytes % (Manual) Nucleated RBC % Seg Neutrophils # Seg Neutrophils # Man Lymphocytes # (Manual) Monocytes # (Manual) Eosinophils # (Manual) APTT POC ABG pH ABG pH POC ABG pCO2 POC ABG pO2 ABG pO2 ABG HCO3 ABG O2 Saturation ABG Base Excess ABG Hemoglobin VBG pH Oxyhemoglobin Sodium Potassium Chloride Carbon Dioxide BUN Creatinine Glucose POC Glucose 175 H 137 H 182 H Lactic Acid Calcium Phosphorus Total Bilirubin AST ALT C-Reactive Protein Total Protein Albumin Triglycerides Amylase Lipase Urine WBC (Auto) Vancomycin Trough Crossmatch 12/31/17 01/01/18 01/01/18 23:34 02:09 04:00 WBC 16.4 H RBC 2.41 L Hgb 7.8 L Hct 23.6 L MCV 98 H MCH 33 H MCHC RDW Plt Count Lymph % (Auto) 10.7 L Eos # 0.7 H Baso # 0.2 H Seg Neutrophils % 79.0 H Seg Neuts % (Manual) Lymphocytes % (Manual) Monocytes % (Manual) Nucleated RBC % Seg Neutrophils # 12.9 H Seg Neutrophils # Man Lymphocytes # (Manual) Monocytes # (Manual) Eosinophils # (Manual) APTT POC ABG pH ABG pH POC ABG pCO2 POC ABG pO2 ABG pO2 ABG HCO3 ABG O2 Saturation ABG Base Excess ABG Hemoglobin VBG pH Oxyhemoglobin Sodium Potassium Chloride Carbon Dioxide BUN Creatinine Glucose POC Glucose 132 H 117 H Lactic Acid Calcium Phosphorus Total Bilirubin AST ALT C-Reactive Protein Total Protein Albumin Triglycerides Amylase Lipase Urine WBC (Auto) Vancomycin Trough Crossmatch 01/01/18 01/01/18 01/01/18 04:00 04:04 05:32 WBC RBC Hgb Hct MCV MCH MCHC RDW Plt Count Lymph % (Auto) Eos # Baso # Seg Neutrophils % Seg Neuts % (Manual) Lymphocytes % (Manual) Monocytes % (Manual) Nucleated RBC % Seg Neutrophils # Seg Neutrophils # Man Lymphocytes # (Manual) Monocytes # (Manual) Eosinophils # (Manual) APTT POC ABG pH ABG pH 7.458 H POC ABG pCO2 POC ABG pO2 ABG pO2 67.5 L ABG HCO3 27.5 H ABG O2 Saturation 94.4 L ABG Base Excess 3.4 H ABG Hemoglobin 7.8 L VBG pH Oxyhemoglobin 92.1 L Sodium Potassium Chloride Carbon Dioxide BUN Creatinine 0.4 L Glucose 129 H POC Glucose 129 H Lactic Acid Calcium 7.9 L Phosphorus Total Bilirubin AST ALT C-Reactive Protein Total Protein Albumin Triglycerides Amylase Lipase Urine WBC (Auto) Vancomycin Trough Crossmatch
[2018-01-01] MEDS: SODIUM CHLORIDE FLUSH SYRINGE 10 ML IV SCH (13:06)
[2018-01-01] MEDS: DEXMEDETOMIDINE 400 MCG in NACL 0.9% 100 ML IV SCH ×2 (13:20→21:35)
--- NOTE | 2018-01-01 13:27 | Progress Note ---
Assessment and Plan Assessment and plan: --Acute hypoxic respiratory failure : self extubated , intubated again for hypoxic hypercapnic respiratory failure Vent support nebulizers and IV steroids wean as tolerated and extubated --Anemia; received 1 unit PRBC hemoglobin 7.8, monitor --Febrile illness/sepsis/aspiration pneumonia/ARDS Received Zyvox cefepime and Flagyl, monitor off antibiotics per ID --Hypokalemia; corrected closely monitor --Alcohol abuse: sedated, cont iv thiamine, Librium as needed --Hypotension; blood pressures reasonable level, of Levophed --Thrombocytopenia, improving, no evidence of bleeding --Severe protein calorie malnutrition; nutrition supplements, tube feeding and supportive care --DM type 2-continue Accu-Chek sliding scale coverage long-acting insulin, chilled feeding --DVT prophylaxis: Continue heparin and SCDs Consults and recommendations reviewed Plan of care reviewed with the patient's nurse Critical care time 31 minutes The high probability of a clinically significant sudden or life-threatening deterioration of the [infectious, respiratory, hematologic] system(s) required my full and direct attention, intervention and personal management. The aggregate critical care time was [31 ] minutes. This time is in addition to the time spent performing reported procedures but including [ X] Data review and interpretation [ X] Patient assessment and monitoring of vital signs [ X ] Documentation [X] Medication orders and management History Interval history: Patient seen and examined medical records reviewed Remains intubated on ventilatory support Comfortable No new events reported by nursing staff Vital signs reviewed Hospitalist Physical - Constitutional Vitals: Temp Pulse Resp BP Pulse Ox 99 F 84 35 H 103/61 95 01/01/18 08:00 01/01/18 12:00 01/01/18 12:00 01/01/18 12:00 01/01/18 12:00 General appearance: Present: no acute distress, well-nourished, other ( intubated on vent) - EENT Eyes: Present: PERRL, EOM intact - Neck Neck: Present: supple, other (ET tube and Dobbhoff in place) - Respiratory Respiratory effort: normal Respiratory: bilateral: diminished, rhonchi, negative: rales, wheezing - Cardiovascular Rhythm: regular Heart Sounds: Present: S1 & S2 - Extremities Extremities: no ischemia, No edema - Abdominal General gastrointestinal: soft, non-tender, non-distended, normal bowel sounds - Integumentary Integumentary: Present: clear, warm - Psychiatric Psychiatric: other (intubated and sedated) - Neurologic Neurologic: other (intubated and sedated) Results - Labs CBC & Chem 7: 01/01/18 04:00 01/01/18 04:00 Labs: Laboratory Last Values WBC 16.4 K/mm3 (4.5-11.0) H 01/01/18 04:00 RBC 2.41 M/mm3 (3.65-5.03) L 01/01/18 04:00 Hgb 7.8 gm/dl (11.8-15.2) L 01/01/18 04:00 Hct 23.6 % (35.5-45.6) L 01/01/18 04:00 MCV 98 fl (84-94) H 01/01/18 04:00 MCH 33 pg (28-32) H 01/01/18 04:00 MCHC 33 % (32-34) 01/01/18 04:00 RDW 14.1 % (13.2-15.2) 01/01/18 04:00 Plt Count 173 K/mm3 (140-440) 01/01/18 04:00 Lymph % (Auto) 10.7 % (13.4-35.0) L 01/01/18 04:00 [place] % (Auto) 5.0 % (0.0-7.3) 01/01/18 04:00 Eos % (Auto) 4.2 % (0.0-4.3) 01/01/18 04:00 Baso % (Auto) 1.1 % (0.0-1.8) 01/01/18 04:00 Lymph # 1.7 K/mm3 (1.2-5.4) 01/01/18 04:00 [place] # 0.8 K/mm3 (0.0-0.8) 01/01/18 04:00 Eos # 0.7 K/mm3 (0.0-0.4) H 01/01/18 04:00 Baso # 0.2 K/mm3 (0.0-0.1) H 01/01/18 04:00 Add Manual Diff Complete 12/29/17 08:04 Total Counted 200 12/29/17 08:04 Seg Neutrophils % 79.0 % (40.0-70.0) H 01/01/18 04:00 Seg Neuts % (Manual) 93.0 % (40.0-70.0) H 12/29/17 08:04 Band Neutrophils % 0 % 12/29/17 08:04 Lymphocytes % (Manual) 2.0 % (13.4-35.0) L 12/29/17 08:04 Reactive Lymphs % (Man) 0 % 12/29/17 08:04 Monocytes % (Manual) 1.5 % (0.0-7.3) 12/29/17 08:04 Eosinophils % (Manual) 3.5 % (0.0-4.3) 12/29/17 08:04 Basophils % (Manual) 0 % (0.0-1.8) 12/29/17 08:04 Metamyelocytes % 0 % 12/29/17 08:04 Myelocytes % 0 % 12/29/17 08:04 Promyelocytes % 0 % 12/29/17 08:04 Blast Cells % 0 % 12/29/17 08:04 Nucleated RBC % Not Reportable 12/29/17 08:04 Seg Neutrophils # 12.9 K/mm3 (1.8-7.7) H 01/01/18 04:00 Seg Neutrophils # Man 19.3 K/mm3 (1.8-7.7) H 12/29/17 08:04 Band Neutrophils # 0.0 K/mm3 12/29/17 08:04 Lymphocytes # (Manual) 0.4 K/mm3 (1.2-5.4) L 12/29/17 08:04 Abs React Lymphs (Man) 0.0 K/mm3 12/29/17 08:04 Monocytes # (Manual) 0.3 K/mm3 (0.0-0.8) 12/29/17 08:04 Eosinophils # (Manual) 0.7 K/mm3 (0.0-0.4) H 12/29/17 08:04 Basophils # (Manual) 0.0 K/mm3 (0.0-0.1) 12/29/17 08:04 Metamyelocytes # 0.0 K/mm3 12/29/17 08:04 Myelocytes # 0.0 K/mm3 12/29/17 08:04 Promyelocytes # 0.0 K/mm3 12/29/17 08:04 Blast Cells # 0.0 K/mm3 12/29/17 08:04 Pathologist Review 12/23/17 09:25 WBC Morphology Not Reportable 12/29/17 08:04 Hypersegmented Neuts Not Reportable 12/29/17 08:04 Hyposegmented Neuts Not Reportable 12/29/17 08:04 Hypogranular Neuts Not Reportable 12/29/17 08:04 Smudge Cells Not Reportable 12/29/17 08:04 Toxic Granulation Not Reportable 12/29/17 08:04 Toxic Vacuolation Not Reportable 12/29/17 08:04 Dohle Bodies Not Reportable 12/29/17 08:04 Pelger-Huet Anomaly Not Reportable 12/29/17 08:04 Mary Rods Not Reportable 12/29/17 08:04 Platelet Estimate Consistent w auto 12/29/17 08:04 Clumped Platelets Not Reportable 12/29/17 08:04 Plt Clumps, EDTA Not Reportable 12/29/17 08:04 Large Platelets Not Reportable 12/29/17 08:04 Giant Platelets Not Reportable 12/29/17 08:04 Platelet Satelliting Not Reportable 12/29/17 08:04 Plt Morphology Comment Not Reportable 12/29/17 08:04 RBC Morphology Not Reportable 12/29/17 08:04 Dimorphic RBCs Not Reportable 12/29/17 08:04 Polychromasia Not Reportable 12/29/17 08:04 Hypochromasia Not Reportable 12/29/17 08:04 Poikilocytosis Not Reportable 12/29/17 08:04 Anisocytosis 1+ 12/29/17 08:04 Microcytosis Not Reportable 12/29/17 08:04 Macrocytosis Not Reportable 12/29/17 08:04 Spherocytes Not Reportable 12/29/17 08:04 Pappenheimer Bodies Not Reportable 12/29/17 08:04 Sickle Cells Not Reportable 12/29/17 08:04 Target Cells Not Reportable 12/29/17 08:04 Tear Drop Cells Not Reportable 12/29/17 08:04 Ovalocytes Not Reportable 12/29/17 08:04 Stomatocytes 1+ 12/29/17 08:04 Helmet Cells Not Reportable 12/29/17 08:04 [place] Bodies Not Reportable 12/29/17 08:04 [place] Rings Not Reportable 12/29/17 08:04 Chidi Cells Not Reportable 12/29/17 08:04 Bite Cells Not Reportable 12/29/17 08:04 Crenated Cell Not Reportable 12/29/17 08:04 Elliptocytes Not Reportable 12/29/17 08:04 Acanthocytes (Spur) Not Reportable 12/29/17 08:04 Rouleaux Not Reportable 12/29/17 08:04 Hemoglobin C Crystals Not Reportable 12/29/17 08:04 Schistocytes Not Reportable 12/29/17 08:04 Malaria parasites Not Reportable 12/29/17 08:04 Vipul Bodies Not Reportable 12/29/17 08:04 Hem Pathologist Commnt No 12/29/17 08:04 PT 14.9 Sec. (12.2-14.9) 12/15/17 04:05 INR 1.11 (0.87-1.13) 12/15/17 04:05 APTT 20.9 Sec. (24.2-36.6) L 12/15/17 04:05 POC ABG pH 7.503 (7.35-7.45) H 12/25/17 03:38 ABG pH 7.458 pH Units (7.350-7.450) H 01/01/18 04:04 POC ABG pCO2 35.8 (35-45) 12/25/17 03:38 ABG pCO2 39.7 mm Hg 01/01/18 04:04 POC ABG pO2 66 (80-105) L 12/25/17 03:38 ABG pO2 67.5 mm Hg (80.0-90.0) L 01/01/18 04:04 POC ABG HCO3 28.1 12/25/17 03:38 ABG HCO3 27.5 mmol/L (20.0-26.0) H 01/01/18 04:04 POC ABG Total CO2 29 12/25/17 03:38 POC ABG O2 Sat 95 12/25/17 03:38 ABG O2 Saturation 94.4 % (95.0-99.0) L 01/01/18 04:04 ABG O2 Content 10.2 (0.0-44) 01/01/18 04:04 POC ABG Base Excess 5 12/25/17 03:38 ABG Base Excess 3.4 mmol/L (-2.0-3.0) H 01/01/18 04:04 ABG Hemoglobin 7.8 gm/dl (14.0-18.0) L 01/01/18 04:04 ABG Carboxyhemoglobin 2.0 % (0.0-5.0) 01/01/18 04:04 ABG Methemoglobin 0.4 % (0.0-1.5) 01/01/18 04:04 VBG pH 7.472 (7.320-7.420) H 12/12/17 19:18 Oxyhemoglobin 92.1 % (95.0-99.0) L 01/01/18 04:04 FiO2 40 % 01/01/18 04:04 Sodium 138 mmol/L (137-145) 01/01/18 04:00 Potassium 3.8 mmol/L (3.6-5.0) 01/01/18 04:00 Chloride 100.3 mmol/L (98-107) 01/01/18 04:00 Carbon Dioxide 27 mmol/L (22-30) 01/01/18 04:00 Anion Gap 15 mmol/L 01/01/18 04:00 BUN 12 mg/dL (9-20) 01/01/18 04:00 Creatinine 0.4 mg/dL (0.8-1.5) L 01/01/18 04:00 Estimated GFR > 60 ml/min 01/01/18 04:00 BUN/Creatinine Ratio 30 % 01/01/18 04:00 Glucose 129 mg/dL (75-100) H 01/01/18 04:00 POC Glucose 129 (70-105) H 01/01/18 05:32 Lactic Acid 2.00 mmol/L (0.7-2.0) 12/13/17 19:38 Calcium 7.9 mg/dL (8.4-10.2) L 01/01/18 04:00 Phosphorus 2.20 mg/dL (2.5-4.5) L 12/28/17 08:47 Magnesium 1.90 mg/dL (1.7-2.3) 12/30/17 04:50 Total Bilirubin 0.60 mg/dL (0.1-1.2) 12/29/17 08:04 AST 36 units/L (5-40) 12/29/17 08:04 ALT 29 units/L (7-56) 12/29/17 08:04 Alkaline Phosphatase 68 units/L (35-129) 12/29/17 08:04 C-Reactive Protein 7.10 mg/dL (0.00-1.30) H 12/20/17 13:40 NT-Pro-B Natriuret Pep 409.9 pg/mL (0-450) 12/12/17 19:02 Total Protein 5.6 g/dL (6.3-8.2) L 12/29/17 08:04 Albumin 2.4 g/dL (3.9-5) L 12/29/17 08:04 Albumin/Globulin Ratio 0.8 % 12/29/17 08:04 Triglycerides 1042 mg/dL (2-149) H 12/20/17 13:40 Amylase 20 units/L (27-131) L 12/13/17 13:47 Lipase 9 units/L (13-60) L 12/13/17 13:47 Urine Color Neeta (Yellow) 12/15/17 17:00 Urine Turbidity Hazy (Clear) 12/15/17 17:00 Urine pH 6.0 (5.0-7.0) 12/15/17 17:00 Ur Specific [place] 1.027 (1.003-1.030) 12/15/17 17:00 Urine Protein 30 mg/dl mg/dL (Negative) 12/15/17 17:00 Urine Glucose (UA) Neg mg/dL (Negative) 12/15/17 17:00 Urine Ketones Tr mg/dL (Negative) 12/15/17 17:00 Urine Blood Lg (Negative) 12/15/17 17:00 Urine Nitrite Neg (Negative) 12/15/17 17:00 Urine Bilirubin Neg (Negative) 12/15/17 17:00 Urine Ictotest Positive (Negative) 12/12/17 20:42 Urine Urobilinogen < 2.0 mg/dL (<2.0) 12/15/17 17:00 Ur Leukocyte Esterase Tr (Negative) 12/15/17 17:00 Urine WBC (Auto) 38.0 /HPF (0.0-6.0) H 12/15/17 17:00 Urine RBC (Auto) 65.0 /HPF (0.0-6.0) 12/15/17 17:00 U Epithel Cells (Auto) < 1.0 /HPF (0-13.0) 12/12/17 20:42 Urine Bacteria (Auto) 1+ /HPF (Negative) 12/15/17 17:00 Urine Mucus 1+ /HPF 12/12/17 20:42 Vancomycin Trough 22.5 ug/mL (5.0-20.0) H 12/25/17 12:58 JERMAIN Screen Negative (Negative) 12/18/17 16:44 Proteinase 3 (PR3) Ab <1.0 AI (<1.0) 12/18/17 16:33 Myeloperoxidase Ab <1.0 AI (<1.0) 12/18/17 16:33 Complement C3 113 mg/dL (82-185) 12/18/17 16:33 Complement C4 15 mg/dL (15-53) 12/18/17 16:33 Hepatitis A IgM Ab Non-reactive (NonReactive) 12/20/17 13:40 Hep Bs Antigen Non-reactive (Negative) 12/20/17 13:40 Hep B Core IgM Ab Non-reactive (NonReactive) 12/20/17 13:40 Hepatitis C Antibody Non-reactive (NonReactive) 12/20/17 13:40 HIV 1&2 Antibody Rapid Non react (Non React) 12/20/17 13:40 HIV P24 Antigen Non react (Non React) 12/20/17 13:40 Influenza A (Rapid) Negative (Negative) 12/12/17 22:00 Influenza B (Rapid) Negative (Negative) 12/12/17 22:00 Urine Legionella Ag Not detected (Not Detected) 12/14/17 16:15 Miscellaneous Test Flexitest 1 12/14/17 16:15 Blood Type O POSITIVE 12/31/17 09:25 Antibody Screen Negative 12/31/17 09:25 Crossmatch See Detail 12/31/17 09:25
--- NOTE | 2018-01-01 23:56 | Cat Scan Report ---
FINAL REPORT EXAM: CT ABDOMEN PELVIS W CON HISTORY: severe sepsis of unclear source TECHNIQUE: Helical CT scan through the abdomen and pelvis during intravenous injection of iodinated contrast. Images are reconstructed in the sagittal and coronal planes. Oral contrast was not given. PRIORS: None. FINDINGS: The liver, gallbladder, pancreas, spleen and adrenal glands appear normal. There is a 2.6 cm cyst in the right kidney. There is a 6 mm cyst in the left kidney. Otherwise, the kidneys opacify normally and excrete urine symmetrically. There is no hydronephrosis. The pelvic organs appear grossly normal. There is an NG tube in place with the tip in the stomach. The stomach appears grossly within normal limits. There are no abnormally dilated loops of bowel or acute inflammatory changes. A rectal tube is in place. A normal-appearing appendix is identified. The abdominal aorta has a normal diameter. There is small umbilical hernia containing normal appearing fat. There is mild bilateral, lateral subcutaneous fat edema most likely due to 3rd spacing. The bones are unremarkable for age. IMPRESSION: 1. No acute findings in the abdomen/pelvis 2. Small bilateral renal cysts 3. Small amount of 3rd spacing the subcutaneous soft tissues 4. Small umbilical hernia containing normal appearing fat.
--- NOTE | 2018-01-02 00:10 | Cat Scan Report ---
FINAL REPORT EXAM: CT CHEST W CON HISTORY: severe sepsis of unclear source TECHNIQUE: High-resolution helical axial images were obtained of the chest during intravenous administration of iodinated contrast. Images are reconstructed in the sagittal and coronal planes. PRIORS: Chest x-ray from 12/20/2017 FINDINGS: There is a right arm PICC line in place with the tip in the right atrium. There is no evidence of pulmonary embolism, the pulmonary arteries opacify normally. The heart and thoracic aorta appear normal. There is mild mediastinal adenopathy. There is been interval development of extensive bilateral mixed airspace and interstitial infiltrates. There is no evidence of pleural effusion. Images through the upper abdomen are unremarkable. The bones are unremarkable. IMPRESSION: Extensive bilateral mixed airspace and interstitial infiltrates consistent with pneumonia or pulmonary edema.
[2018-01-02] MEDS: DUONEB *Not for PRN Use IH SCH ×4 (02:40→20:03)
[2018-01-02 05:11] LABS: Basophils % (Auto) 0.3 % (0.0-1.8); Eosinophils # (Auto) 0.7 K/mm3 (0.0-0.4); Eosinophils % (Auto) 5.5 % (0.0-4.3); Hematocrit 22.7 % (35.5-45.6); Hemoglobin 7.5 gm/dl (11.8-15.2); Lymphocytes # (Auto) 2.2 K/mm3 (1.2-5.4); Lymphocytes % (Auto) 18.5 % (13.4-35.0); Mean Corpuscular HGB Conc 33 % (32-34); Mean Corpuscular Hemoglobin 33 pg (28-32); Mean Corpuscular Volume 99 fl (84-94); Monocytes # (Auto) 0.9 K/mm3 (0.0-0.8); Monocytes % (Auto) 7.1 % (0.0-7.3); Platelet Count 166 K/mm3 (140-440); Red Blood Count 2.29 M/mm3 (3.65-5.03)
[2018-01-02] MEDS: HumaLOG SUB-Q SCH ×6 (05:34→23:36)
[2018-01-02] MEDS: LOPRESSOR IV SCH ×3 (05:35→11:52)
[2018-01-02] MEDS: LIBRIUM PO SCH ×5 (05:36→23:05)
[2018-01-02 05:43] LABS: Alanine Aminotransferase 20 units/L (7-56); Albumin 2.5 g/dL (3.9-5); BUN/Creatinine Ratio 23; Blood Urea Nitrogen 9 mg/dL (9-20); Calcium 8.1 mg/dL (8.4-10.2); Hemolysis Index 0
[2018-01-02] MEDS: HEPARIN SUB-Q SCH ×3 (05:49→22:43)
[2018-01-02] MEDS: DEXMEDETOMIDINE 400 MCG in NACL 0.9% 100 ML IV SCH ×3 (07:00→23:38)
--- NOTE | 2018-01-02 08:50 | Progress Note ---
Assessment and Plan Acute respiratory failure. Stable , awake on ventilator support at this time Pneumonia/ARDS. follow-up with CT scan with extensive air space disease, air bronchograms areas. minimal effusions, per my review AMS, agitation. Restricted weaning, requiring Precedex, Librium reportedly with similar behavior in recent weeks on multiple times, requiring combinations sedation in aggressive fashion. Anemia. Stable Fever. See above.No additional abdominal findings Recommendations Restart weaning afterwards We'll continue to titrate PEEP and FiO2 as tolerated The pros and Precedex infusion and Librium . Proceed with SBT as tolerated. Maintain extubation precautions If he fails additional weaning attempts, the patient proceeded with tracheotomy in order to complete the process Critical care time was 31 minutes of [id number] evaluation and coordination of care Subjective Date of service: 01/02/18 Principal diagnosis: ARDS Interval history: Partially sedated, responsive told some of my questions. On ventilator support Objective Vital Signs - 12hr 01/01/18 01/01/18 01/01/18 21:00 21:06 22:00 Temperature Pulse Rate 82 82 91 H Pulse Rate [ Anterior Bilateral Throughout] Respiratory 18 19 29 H Rate Respiratory Rate [Anterior Bilateral Throughout] Blood Pressure 98/59 98/59 107/67 O2 Sat by Pulse 100 100 91 Oximetry 01/01/18 01/01/18 01/02/18 23:00 23:42 00:00 Temperature 98.2 F Pulse Rate 90 87 Pulse Rate [ Anterior Bilateral Throughout] Respiratory 28 H 28 H Rate Respiratory Rate [Anterior Bilateral Throughout] Blood Pressure 113/67 O2 Sat by Pulse 93 90 Oximetry 01/02/18 01/02/18 01/02/18 00:50 01:00 02:00 Temperature Pulse Rate 86 80 83 Pulse Rate [ Anterior Bilateral Throughout] Respiratory 20 22 Rate Respiratory Rate [Anterior Bilateral Throughout] Blood Pressure 102/63 107/66 104/66 O2 Sat by Pulse 93 94 94 Oximetry 01/02/18 01/02/18 01/02/18 02:40 02:50 03:00 Temperature Pulse Rate 82 Pulse Rate [ 83 82 Anterior Bilateral Throughout] Respiratory 21 Rate Respiratory 21 20 Rate [Anterior Bilateral Throughout] Blood Pressure 107/64 O2 Sat by Pulse 99 Oximetry 01/02/18 01/02/18 01/02/18 03:58 04:00 04:50 Temperature 98.6 F Pulse Rate 86 88 Pulse Rate [ Anterior Bilateral Throughout] Respiratory 30 H Rate Respiratory Rate [Anterior Bilateral Throughout] Blood Pressure 108/65 105/64 O2 Sat by Pulse 90 93 Oximetry 01/02/18 01/02/18 01/02/18 05:00 05:35 05:46 Temperature Pulse Rate 86 83 92 H Pulse Rate [ Anterior Bilateral Throughout] Respiratory 28 H Rate Respiratory Rate [Anterior Bilateral Throughout] Blood Pressure 105/64 102/76 111/68 O2 Sat by Pulse 93 Oximetry 01/02/18 01/02/18 01/02/18 06:00 07:23 07:26 Temperature Pulse Rate 92 H 85 Pulse Rate [ 86 Anterior Bilateral Throughout] Respiratory 24 Rate Respiratory 28 H Rate [Anterior Bilateral Throughout] Blood Pressure 115/71 112/66 O2 Sat by Pulse 92 94 Oximetry 01/02/18 07:45 Temperature Pulse Rate Pulse Rate [ 86 Anterior Bilateral Throughout] Respiratory Rate Respiratory 23 Rate [Anterior Bilateral Throughout] Blood Pressure O2 Sat by Pulse Oximetry Constitutional: no acute distress, other (intubated, awake) Eyes: non-icteric ENT: oropharynx moist Neck: supple, no JVD Effort: normal Ascultation: Bilateral: clear, diminished breath sounds Percussion: Bilateral: not dull Cardiovascular: regular rate and rhythm Gastrointestinal: normoactive bowel sounds, soft, non-tender, non-distended, other (obese) Integumentary: normal Extremities: no cyanosis, no edema, pink and warm Neurologic: unable to assess Psychiatric: other (not able to assess) CBC and BMP: 01/02/18 04:10 01/02/18 04:10 ABG, PT/INR, D-dimer: ABG POC ABG pH 7.503 (7.35-7.45) H 12/25/17 03:38 ABG pH 7.458 pH Units (7.350-7.450) H 01/01/18 04:04 POC ABG pCO2 35.8 (35-45) 12/25/17 03:38 ABG pCO2 39.7 mm Hg 01/01/18 04:04 POC ABG pO2 66 (80-105) L 12/25/17 03:38 ABG pO2 67.5 mm Hg (80.0-90.0) L 01/01/18 04:04 POC ABG HCO3 28.1 12/25/17 03:38 POC ABG Total CO2 29 12/25/17 03:38 POC ABG O2 Sat 95 12/25/17 03:38 ABG O2 Saturation 94.4 % (95.0-99.0) L 01/01/18 04:04 PT/INR, D-dimer PT 14.9 Sec. (12.2-14.9) 12/15/17 04:05 INR 1.11 (0.87-1.13) 12/15/17 04:05 Abnormal lab findings: Abnormal Labs 12/12/17 12/12/17 12/12/17 18:57 19:02 19:02 WBC RBC Hgb Hct MCV 96 H MCH 34 H MCHC 35 H RDW Plt Count 46 L Lymph % (Auto) Eos % (Auto) [place] # Eos # Baso # Seg Neutrophils % Seg Neuts % (Manual) 77.0 H Lymphocytes % (Manual) 13.0 L Monocytes % (Manual) Nucleated RBC % Seg Neutrophils # Seg Neutrophils # Man Lymphocytes # (Manual) 0.9 L Monocytes # (Manual) Eosinophils # (Manual) APTT POC ABG pH ABG pH POC ABG pCO2 POC ABG pO2 ABG pO2 ABG HCO3 ABG O2 Saturation ABG Base Excess ABG Hemoglobin VBG pH Oxyhemoglobin Sodium Potassium Chloride Carbon Dioxide BUN Creatinine Glucose POC Glucose 321 H Lactic Acid 4.00 H* Calcium Phosphorus Total Bilirubin AST ALT C-Reactive Protein Total Protein Albumin Triglycerides Amylase Lipase Urine WBC (Auto) Vancomycin Trough Crossmatch 12/12/17 12/12/17 12/12/17 19:02 19:18 20:55 WBC RBC Hgb Hct MCV MCH MCHC RDW Plt Count Lymph % (Auto) Eos % (Auto) [place] # Eos # Baso # Seg Neutrophils % Seg Neuts % (Manual) Lymphocytes % (Manual) Monocytes % (Manual) Nucleated RBC % Seg Neutrophils # Seg Neutrophils # Man Lymphocytes # (Manual) Monocytes # (Manual) Eosinophils # (Manual) APTT POC ABG pH ABG pH POC ABG pCO2 POC ABG pO2 ABG pO2 ABG HCO3 ABG O2 Saturation ABG Base Excess ABG Hemoglobin VBG pH 7.472 H Oxyhemoglobin Sodium 124 L Potassium Chloride 80.0 L Carbon Dioxide 20 L BUN Creatinine Glucose 382 H POC Glucose 283 H Lactic Acid Calcium 8.1 L Phosphorus Total Bilirubin 4.60 H AST 93 H ALT 112 H C-Reactive Protein Total Protein Albumin 2.5 L Triglycerides Amylase Lipase Urine WBC (Auto) Vancomycin Trough Crossmatch 12/12/17 12/13/17 12/13/17 21:41 00:45 01:29 WBC RBC Hgb Hct MCV MCH MCHC RDW Plt Count Lymph % (Auto) Eos % (Auto) [place] # Eos # Baso # Seg Neutrophils % Seg Neuts % (Manual) Lymphocytes % (Manual) Monocytes % (Manual) Nucleated RBC % Seg Neutrophils # Seg Neutrophils # Man Lymphocytes # (Manual) Monocytes # (Manual) Eosinophils # (Manual) APTT POC ABG pH ABG pH POC ABG pCO2 POC ABG pO2 ABG pO2 ABG HCO3 ABG O2 Saturation ABG Base Excess ABG Hemoglobin VBG pH Oxyhemoglobin Sodium Potassium Chloride Carbon Dioxide BUN Creatinine Glucose POC Glucose Lactic Acid 4.20 H* 2.70 H* 3.30 H* Calcium Phosphorus Total Bilirubin AST ALT C-Reactive Protein Total Protein Albumin Triglycerides Amylase Lipase Urine WBC (Auto) Vancomycin Trough Crossmatch 12/13/17 12/13/17 12/13/17 02:19 03:44 05:58 WBC RBC Hgb Hct MCV 97 H MCH 34 H MCHC 35 H RDW Plt Count 41 L Lymph % (Auto) Eos % (Auto) [place] # Eos # Baso # Seg Neutrophils % Seg Neuts % (Manual) Lymphocytes % (Manual) 8.0 L Monocytes % (Manual) 8.0 H Nucleated RBC % Seg Neutrophils # Seg Neutrophils # Man Lymphocytes # (Manual) 0.6 L Monocytes # (Manual) Eosinophils # (Manual) APTT POC ABG pH 7.334 L ABG pH POC ABG pCO2 POC ABG pO2 43 L ABG pO2 ABG HCO3 ABG O2 Saturation ABG Base Excess ABG Hemoglobin VBG pH Oxyhemoglobin Sodium Potassium Chloride Carbon Dioxide BUN Creatinine Glucose POC Glucose Lactic Acid 2.60 H* Calcium Phosphorus Total Bilirubin AST ALT C-Reactive Protein Total Protein Albumin Triglycerides Amylase Lipase Urine WBC (Auto) Vancomycin Trough Crossmatch 12/13/17 12/13/17 12/13/17 05:58 05:58 05:58 WBC RBC Hgb Hct MCV MCH MCHC RDW Plt Count Lymph % (Auto) Eos % (Auto) [place] # Eos # Baso # Seg Neutrophils % Seg Neuts % (Manual) Lymphocytes % (Manual) Monocytes % (Manual) Nucleated RBC % Seg Neutrophils # Seg Neutrophils # Man Lymphocytes # (Manual) Monocytes # (Manual) Eosinophils # (Manual) APTT POC ABG pH ABG pH POC ABG pCO2 POC ABG pO2 ABG pO2 ABG HCO3 ABG O2 Saturation ABG Base Excess ABG Hemoglobin VBG pH Oxyhemoglobin Sodium 132 L D Potassium Chloride 90.0 L Carbon Dioxide 20 L BUN Creatinine Glucose 346 H POC Glucose 298 H Lactic Acid 4.50 H* Calcium 8.2 L Phosphorus Total Bilirubin AST ALT C-Reactive Protein Total Protein Albumin Triglycerides Amylase Lipase Urine WBC (Auto) Vancomycin Trough Crossmatch 12/13/17 12/13/17 12/13/17 06:27 09:42 11:47 WBC RBC Hgb Hct MCV MCH MCHC RDW Plt Count Lymph % (Auto) Eos % (Auto) [place] # Eos # Baso # Seg Neutrophils % Seg Neuts % (Manual) Lymphocytes % (Manual) Monocytes % (Manual) Nucleated RBC % Seg Neutrophils # Seg Neutrophils # Man Lymphocytes # (Manual) Monocytes # (Manual) Eosinophils # (Manual) APTT POC ABG pH 7.267 L 7.298 L ABG pH POC ABG pCO2 50.4 H 51.3 H POC ABG pO2 47 L 43 L ABG pO2 ABG HCO3 ABG O2 Saturation ABG Base Excess ABG Hemoglobin VBG pH Oxyhemoglobin Sodium Potassium Chloride Carbon Dioxide BUN Creatinine Glucose POC Glucose 376 H Lactic Acid Calcium Phosphorus Total Bilirubin AST ALT C-Reactive Protein Total Protein Albumin Triglycerides Amylase Lipase Urine WBC (Auto) Vancomycin Trough Crossmatch 12/13/17 12/13/17 12/13/17 12:03 13:47 13:47 WBC RBC Hgb Hct MCV MCH MCHC RDW Plt Count Lymph % (Auto) Eos % (Auto) [place] # Eos # Baso # Seg Neutrophils % Seg Neuts % (Manual) Lymphocytes % (Manual) Monocytes % (Manual) Nucleated RBC % Seg Neutrophils # Seg Neutrophils # Man Lymphocytes # (Manual) Monocytes # (Manual) Eosinophils # (Manual) APTT POC ABG pH 7.264 L ABG pH POC ABG pCO2 54.9 H POC ABG pO2 55 L ABG pO2 ABG HCO3 ABG O2 Saturation ABG Base Excess ABG Hemoglobin VBG pH Oxyhemoglobin Sodium Potassium Chloride Carbon Dioxide BUN Creatinine Glucose POC Glucose Lactic Acid 2.80 H* Calcium Phosphorus Total Bilirubin AST ALT C-Reactive Protein Total Protein Albumin Triglycerides Amylase 20 L Lipase 9 L Urine WBC (Auto) Vancomycin Trough Crossmatch 12/13/17 12/13/17 12/13/17 15:36 17:39 21:47 WBC RBC Hgb Hct MCV MCH MCHC RDW Plt Count Lymph % (Auto) Eos % (Auto) [place] # Eos # Baso # Seg Neutrophils % Seg Neuts % (Manual) Lymphocytes % (Manual) Monocytes % (Manual) Nucleated RBC % Seg Neutrophils # Seg Neutrophils # Man Lymphocytes # (Manual) Monocytes # (Manual) Eosinophils # (Manual) APTT POC ABG pH 7.229 L 7.225 L ABG pH POC ABG pCO2 60.9 H 66.3 H POC ABG pO2 42 L 41 L ABG pO2 ABG HCO3 ABG O2 Saturation ABG Base Excess ABG Hemoglobin VBG pH Oxyhemoglobin Sodium Potassium Chloride Carbon Dioxide BUN Creatinine Glucose POC Glucose 289 H Lactic Acid Calcium Phosphorus Total Bilirubin AST ALT C-Reactive Protein Total Protein Albumin Triglycerides Amylase Lipase Urine WBC (Auto) Vancomycin Trough Crossmatch 12/13/17 12/14/17 12/14/17 22:19 02:03 05:16 WBC RBC Hgb Hct MCV MCH MCHC RDW Plt Count Lymph % (Auto) Eos % (Auto) [place] # Eos # Baso # Seg Neutrophils % Seg Neuts % (Manual) Lymphocytes % (Manual) Monocytes % (Manual) Nucleated RBC % Seg Neutrophils # Seg Neutrophils # Man Lymphocytes # (Manual) Monocytes # (Manual) Eosinophils # (Manual) APTT POC ABG pH 7.247 L ABG pH POC ABG pCO2 61.2 H POC ABG pO2 53 L ABG pO2 ABG HCO3 ABG O2 Saturation ABG Base Excess ABG Hemoglobin VBG pH Oxyhemoglobin Sodium Potassium Chloride Carbon Dioxide BUN Creatinine Glucose POC Glucose 274 H 295 H Lactic Acid Calcium Phosphorus Total Bilirubin AST ALT C-Reactive Protein Total Protein Albumin Triglycerides Amylase Lipase Urine WBC (Auto) Vancomycin Trough Crossmatch 12/14/17 12/14/17 12/14/17 05:32 12:04 16:22 WBC RBC Hgb Hct MCV MCH MCHC RDW Plt Count Lymph % (Auto) Eos % (Auto) [place] # Eos # Baso # Seg Neutrophils % Seg Neuts % (Manual) Lymphocytes % (Manual) Monocytes % (Manual) Nucleated RBC % Seg Neutrophils # Seg Neutrophils # Man Lymphocytes # (Manual) Monocytes # (Manual) Eosinophils # (Manual) APTT POC ABG pH ABG pH POC ABG pCO2 POC ABG pO2 ABG pO2 ABG HCO3 ABG O2 Saturation ABG Base Excess ABG Hemoglobin VBG pH Oxyhemoglobin Sodium Potassium Chloride Carbon Dioxide BUN Creatinine Glucose POC Glucose 230 H 241 H 231 H Lactic Acid Calcium Phosphorus Total Bilirubin AST ALT C-Reactive Protein Total Protein Albumin Triglycerides Amylase Lipase Urine WBC (Auto) Vancomycin Trough Crossmatch 12/14/17 12/15/17 12/15/17 21:29 02:29 03:25 WBC RBC Hgb Hct MCV MCH MCHC RDW Plt Count Lymph % (Auto) Eos % (Auto) [place] # Eos # Baso # Seg Neutrophils % Seg Neuts % (Manual) Lymphocytes % (Manual) Monocytes % (Manual) Nucleated RBC % Seg Neutrophils # Seg Neutrophils # Man Lymphocytes # (Manual) Monocytes # (Manual) Eosinophils # (Manual) APTT POC ABG pH 7.330 L ABG pH POC ABG pCO2 55.3 H POC ABG pO2 59 L ABG pO2 ABG HCO3 ABG O2 Saturation ABG Base Excess ABG Hemoglobin VBG pH Oxyhemoglobin Sodium Potassium Chloride Carbon Dioxide BUN Creatinine Glucose POC Glucose 258 H 246 H Lactic Acid Calcium Phosphorus Total Bilirubin AST ALT C-Reactive Protein Total Protein Albumin Triglycerides Amylase Lipase Urine WBC (Auto) Vancomycin Trough Crossmatch 12/15/17 12/15/17 12/15/17 04:05 04:05 04:05 WBC 15.0 H RBC 3.40 L Hgb 11.3 L D Hct 33.8 L D MCV 100 H MCH 33 H MCHC RDW Plt Count 48 L Lymph % (Auto) Eos % (Auto) [place] # Eos # Baso # Seg Neutrophils % Seg Neuts % (Manual) Lymphocytes % (Manual) 3.0 L Monocytes % (Manual) Nucleated RBC % 2.0 H Seg Neutrophils # Seg Neutrophils # Man Lymphocytes # (Manual) 0.5 L Monocytes # (Manual) 0.9 H Eosinophils # (Manual) APTT 20.9 L POC ABG pH ABG pH POC ABG pCO2 POC ABG pO2 ABG pO2 ABG HCO3 ABG O2 Saturation ABG Base Excess ABG Hemoglobin VBG pH Oxyhemoglobin Sodium Potassium Chloride Carbon Dioxide BUN 27 H Creatinine Glucose 258 H POC Glucose Lactic Acid Calcium 8.1 L Phosphorus Total Bilirubin AST ALT C-Reactive Protein Total Protein Albumin Triglycerides Amylase Lipase Urine WBC (Auto) Vancomycin Trough Crossmatch 03/18/18 03/18/18 03/18/18 05:32 11:17 14:59 WBC RBC Hgb Hct MCV MCH MCHC RDW Plt Count Lymph % (Auto) Eos % (Auto) [place] # Eos # Baso # Seg Neutrophils % Seg Neuts % (Manual) Lymphocytes % (Manual) Monocytes % (Manual) Nucleated RBC % Seg Neutrophils # Seg Neutrophils # Man Lymphocytes # (Manual) Monocytes # (Manual) Eosinophils # (Manual) APTT POC ABG pH ABG pH POC ABG pCO2 POC ABG pO2 ABG pO2 ABG HCO3 ABG O2 Saturation ABG Base Excess ABG Hemoglobin VBG pH Oxyhemoglobin Sodium Potassium Chloride Carbon Dioxide BUN Creatinine Glucose POC Glucose 247 H 268 H 233 H Lactic Acid Calcium Phosphorus Total Bilirubin AST ALT C-Reactive Protein Total Protein Albumin Triglycerides Amylase Lipase Urine WBC (Auto) Vancomycin Trough Crossmatch 12/15/17 12/15/17 12/15/17 17:00 18:59 21:37 WBC RBC Hgb Hct MCV MCH MCHC RDW Plt Count Lymph % (Auto) Eos % (Auto) [place] # Eos # Baso # Seg Neutrophils % Seg Neuts % (Manual) Lymphocytes % (Manual) Monocytes % (Manual) Nucleated RBC % Seg Neutrophils # Seg Neutrophils # Man Lymphocytes # (Manual) Monocytes # (Manual) Eosinophils # (Manual) APTT POC ABG pH ABG pH POC ABG pCO2 POC ABG pO2 ABG pO2 ABG HCO3 ABG O2 Saturation ABG Base Excess ABG Hemoglobin VBG pH Oxyhemoglobin Sodium Potassium Chloride Carbon Dioxide BUN Creatinine Glucose POC Glucose 195 H 208 H Lactic Acid Calcium Phosphorus Total Bilirubin AST ALT C-Reactive Protein Total Protein Albumin Triglycerides Amylase Lipase Urine WBC (Auto) 38.0 H Vancomycin Trough Crossmatch 12/16/17 12/16/17 12/16/17 03:17 03:33 04:18 WBC 16.4 H RBC 3.50 L Hgb 11.3 L Hct 35.4 L MCV 101 H MCH MCHC RDW Plt Count 54 L Lymph % (Auto) Eos % (Auto) [place] # Eos # Baso # Seg Neutrophils % Seg Neuts % (Manual) Lymphocytes % (Manual) Monocytes % (Manual) Nucleated RBC % Seg Neutrophils # Seg Neutrophils # Man Lymphocytes # (Manual) Monocytes # (Manual) Eosinophils # (Manual) APTT POC ABG pH ABG pH POC ABG pCO2 47.7 H POC ABG pO2 ABG pO2 ABG HCO3 ABG O2 Saturation ABG Base Excess ABG Hemoglobin VBG pH Oxyhemoglobin Sodium Potassium Chloride Carbon Dioxide BUN Creatinine Glucose POC Glucose 227 H Lactic Acid Calcium Phosphorus Total Bilirubin AST ALT C-Reactive Protein Total Protein Albumin Triglycerides Amylase Lipase Urine WBC (Auto) Vancomycin Trough Crossmatch 12/16/17 12/16/17 12/16/17 04:18 05:08 10:01 WBC RBC Hgb Hct MCV MCH MCHC RDW Plt Count Lymph % (Auto) Eos % (Auto) [place] # Eos # Baso # Seg Neutrophils % Seg Neuts % (Manual) Lymphocytes % (Manual) Monocytes % (Manual) Nucleated RBC % Seg Neutrophils # Seg Neutrophils # Man Lymphocytes # (Manual) Monocytes # (Manual) Eosinophils # (Manual) APTT POC ABG pH ABG pH POC ABG pCO2 POC ABG pO2 ABG pO2 ABG HCO3 ABG O2 Saturation ABG Base Excess ABG Hemoglobin VBG pH Oxyhemoglobin Sodium 147 H Potassium Chloride 107.4 H Carbon Dioxide BUN 28 H Creatinine Glucose 240 H POC Glucose 227 H 190 H Lactic Acid Calcium 8.3 L Phosphorus Total Bilirubin AST ALT C-Reactive Protein Total Protein Albumin Triglycerides Amylase Lipase Urine WBC (Auto) Vancomycin Trough Crossmatch 12/16/17 12/16/17 12/16/17 14:15 17:51 21:14 WBC RBC Hgb Hct MCV MCH MCHC RDW Plt Count Lymph % (Auto) Eos % (Auto) [place] # Eos # Baso # Seg Neutrophils % Seg Neuts % (Manual) Lymphocytes % (Manual) Monocytes % (Manual) Nucleated RBC % Seg Neutrophils # Seg Neutrophils # Man Lymphocytes # (Manual) Monocytes # (Manual) Eosinophils # (Manual) APTT POC ABG pH ABG pH POC ABG pCO2 POC ABG pO2 ABG pO2 ABG HCO3 ABG O2 Saturation ABG Base Excess ABG Hemoglobin VBG pH Oxyhemoglobin Sodium Potassium Chloride Carbon Dioxide BUN Creatinine Glucose POC Glucose 279 H 272 H 260 H Lactic Acid Calcium Phosphorus Total Bilirubin AST ALT C-Reactive Protein Total Protein Albumin Triglycerides Amylase Lipase Urine WBC (Auto) Vancomycin Trough Crossmatch 12/17/17 12/17/17 12/17/17 02:41 04:28 04:28 WBC 19.1 H RBC 3.50 L Hgb 11.4 L Hct 35.3 L MCV 101 H MCH 33 H MCHC RDW Plt Count 65 L Lymph % (Auto) Eos % (Auto) [place] # Eos # Baso # Seg Neutrophils % Seg Neuts % (Manual) Lymphocytes % (Manual) Monocytes % (Manual) Nucleated RBC % Seg Neutrophils # Seg Neutrophils # Man Lymphocytes # (Manual) Monocytes # (Manual) Eosinophils # (Manual) APTT POC ABG pH ABG pH POC ABG pCO2 POC ABG pO2 ABG pO2 ABG HCO3 ABG O2 Saturation ABG Base Excess ABG Hemoglobin VBG pH Oxyhemoglobin Sodium 153 H Potassium Chloride 111.2 H Carbon Dioxide 31 H BUN 28 H Creatinine Glucose 248 H POC Glucose 300 H Lactic Acid Calcium Phosphorus Total Bilirubin AST ALT C-Reactive Protein Total Protein Albumin Triglycerides Amylase Lipase Urine WBC (Auto) Vancomycin Trough Crossmatch 12/17/17 12/17/17 12/17/17 05:15 05:38 10:16 WBC RBC Hgb Hct MCV MCH MCHC RDW Plt Count Lymph % (Auto) Eos % (Auto) [place] # Eos # Baso # Seg Neutrophils % Seg Neuts % (Manual) Lymphocytes % (Manual) Monocytes % (Manual) Nucleated RBC % Seg Neutrophils # Seg Neutrophils # Man Lymphocytes # (Manual) Monocytes # (Manual) Eosinophils # (Manual) APTT POC ABG pH ABG pH POC ABG pCO2 50.3 H POC ABG pO2 120 H ABG pO2 ABG HCO3 ABG O2 Saturation ABG Base Excess ABG Hemoglobin VBG pH Oxyhemoglobin Sodium Potassium Chloride Carbon Dioxide BUN Creatinine Glucose POC Glucose 231 H 196 H Lactic Acid Calcium Phosphorus Total Bilirubin AST ALT C-Reactive Protein Total Protein Albumin Triglycerides Amylase Lipase Urine WBC (Auto) Vancomycin Trough Crossmatch 12/17/17 12/17/17 12/17/17 14:22 18:14 21:35 WBC RBC Hgb Hct MCV MCH MCHC RDW Plt Count Lymph % (Auto) Eos % (Auto) [place] # Eos # Baso # Seg Neutrophils % Seg Neuts % (Manual) Lymphocytes % (Manual) Monocytes % (Manual) Nucleated RBC % Seg Neutrophils # Seg Neutrophils # Man Lymphocytes # (Manual) Monocytes # (Manual) Eosinophils # (Manual) APTT POC ABG pH ABG pH POC ABG pCO2 POC ABG pO2 ABG pO2 ABG HCO3 ABG O2 Saturation ABG Base Excess ABG Hemoglobin VBG pH Oxyhemoglobin Sodium Potassium Chloride Carbon Dioxide BUN Creatinine Glucose POC Glucose 234 H 215 H 159 H Lactic Acid Calcium Phosphorus Total Bilirubin AST ALT C-Reactive Protein Total Protein Albumin Triglycerides Amylase Lipase Urine WBC (Auto) Vancomycin Trough Crossmatch 12/18/17 12/18/17 12/18/17 00:53 02:58 06:03 WBC RBC Hgb Hct MCV MCH MCHC RDW Plt Count Lymph % (Auto) Eos % (Auto) [place] # Eos # Baso # Seg Neutrophils % Seg Neuts % (Manual) Lymphocytes % (Manual) Monocytes % (Manual) Nucleated RBC % Seg Neutrophils # Seg Neutrophils # Man Lymphocytes # (Manual) Monocytes # (Manual) Eosinophils # (Manual) APTT POC ABG pH ABG pH POC ABG pCO2 56.4 H POC ABG pO2 46 L ABG pO2 ABG HCO3 ABG O2 Saturation ABG Base Excess ABG Hemoglobin VBG pH Oxyhemoglobin Sodium Potassium Chloride Carbon Dioxide BUN Creatinine Glucose POC Glucose 176 H 143 H Lactic Acid Calcium Phosphorus Total Bilirubin AST ALT C-Reactive Protein Total Protein Albumin Triglycerides Amylase Lipase Urine WBC (Auto) Vancomycin Trough Crossmatch 12/18/17 12/18/17 12/18/17 07:59 09:20 09:20 WBC 27.4 H RBC 3.57 L Hgb 11.4 L Hct MCV 101 H MCH MCHC RDW Plt Count 64 L Lymph % (Auto) Eos % (Auto) [place] # Eos # Baso # Seg Neutrophils % Seg Neuts % (Manual) Lymphocytes % (Manual) Monocytes % (Manual) Nucleated RBC % Seg Neutrophils # Seg Neutrophils # Man Lymphocytes # (Manual) Monocytes # (Manual) Eosinophils # (Manual) APTT POC ABG pH ABG pH POC ABG pCO2 POC ABG pO2 ABG pO2 ABG HCO3 ABG O2 Saturation ABG Base Excess ABG Hemoglobin VBG pH Oxyhemoglobin Sodium 152 H Potassium Chloride 107.9 H Carbon Dioxide 34 H BUN 23 H Creatinine 0.7 L Glucose 181 H POC Glucose 197 H Lactic Acid Calcium Phosphorus Total Bilirubin AST ALT C-Reactive Protein Total Protein Albumin Triglycerides Amylase Lipase Urine WBC (Auto) Vancomycin Trough Crossmatch 12/18/17 12/18/17 12/18/17 10:22 15:03 18:15 WBC RBC Hgb Hct MCV MCH MCHC RDW Plt Count Lymph % (Auto) Eos % (Auto) [place] # Eos # Baso # Seg Neutrophils % Seg Neuts % (Manual) Lymphocytes % (Manual) Monocytes % (Manual) Nucleated RBC % Seg Neutrophils # Seg Neutrophils # Man Lymphocytes # (Manual) Monocytes # (Manual) Eosinophils # (Manual) APTT POC ABG pH ABG pH POC ABG pCO2 POC ABG pO2 ABG pO2 ABG HCO3 ABG O2 Saturation ABG Base Excess ABG Hemoglobin VBG pH Oxyhemoglobin Sodium Potassium Chloride Carbon Dioxide BUN Creatinine Glucose POC Glucose 195 H 225 H 238 H Lactic Acid Calcium Phosphorus Total Bilirubin AST ALT C-Reactive Protein Total Protein Albumin Triglycerides Amylase Lipase Urine WBC (Auto) Vancomycin Trough Crossmatch 12/18/17 12/18/17 12/19/17 18:29 21:53 00:18 WBC RBC Hgb Hct MCV MCH MCHC RDW Plt Count Lymph % (Auto) Eos % (Auto) [place] # Eos # Baso # Seg Neutrophils % Seg Neuts % (Manual) Lymphocytes % (Manual) Monocytes % (Manual) Nucleated RBC % Seg Neutrophils # Seg Neutrophils # Man Lymphocytes # (Manual) Monocytes # (Manual) Eosinophils # (Manual) APTT POC ABG pH 7.476 H ABG pH POC ABG pCO2 50.4 H POC ABG pO2 158 H ABG pO2 ABG HCO3 ABG O2 Saturation ABG Base Excess ABG Hemoglobin VBG pH Oxyhemoglobin Sodium Potassium Chloride Carbon Dioxide BUN Creatinine Glucose POC Glucose 231 H 263 H Lactic Acid Calcium Phosphorus Total Bilirubin AST ALT C-Reactive Protein Total Protein Albumin Triglycerides Amylase Lipase Urine WBC (Auto) Vancomycin Trough Crossmatch 12/19/17 12/19/17 12/19/17 02:09 04:07 04:07 WBC 25.9 H RBC 3.25 L Hgb 10.6 L Hct 32.8 L MCV 101 H MCH 33 H MCHC RDW Plt Count 67 L Lymph % (Auto) Eos % (Auto) [place] # Eos # Baso # Seg Neutrophils % Seg Neuts % (Manual) Lymphocytes % (Manual) 4.0 L Monocytes % (Manual) Nucleated RBC % Seg Neutrophils # Seg Neutrophils # Man 14.8 H Lymphocytes # (Manual) 1.0 L Monocytes # (Manual) Eosinophils # (Manual) APTT POC ABG pH ABG pH POC ABG pCO2 POC ABG pO2 ABG pO2 ABG HCO3 ABG O2 Saturation ABG Base Excess ABG Hemoglobin VBG pH Oxyhemoglobin Sodium 148 H Potassium Chloride Carbon Dioxide BUN 31 H Creatinine Glucose 314 H POC Glucose 300 H Lactic Acid Calcium 8.1 L Phosphorus Total Bilirubin AST ALT C-Reactive Protein Total Protein Albumin Triglycerides Amylase Lipase Urine WBC (Auto) Vancomycin Trough Crossmatch 12/19/17 12/19/17 12/19/17 05:15 05:41 07:57 WBC RBC Hgb Hct MCV MCH MCHC RDW Plt Count Lymph % (Auto) Eos % (Auto) [place] # Eos # Baso # Seg Neutrophils % Seg Neuts % (Manual) Lymphocytes % (Manual) Monocytes % (Manual) Nucleated RBC % Seg Neutrophils # Seg Neutrophils # Man Lymphocytes # (Manual) Monocytes # (Manual) Eosinophils # (Manual) APTT POC ABG pH 7.507 H ABG pH POC ABG pCO2 POC ABG pO2 ABG pO2 ABG HCO3 ABG O2 Saturation ABG Base Excess ABG Hemoglobin VBG pH Oxyhemoglobin Sodium Potassium Chloride Carbon Dioxide BUN Creatinine Glucose POC Glucose 331 H 307 H Lactic Acid Calcium Phosphorus Total Bilirubin AST ALT C-Reactive Protein Total Protein Albumin Triglycerides Amylase Lipase Urine WBC (Auto) Vancomycin Trough Crossmatch 12/19/17 12/19/17 12/19/17 10:21 14:48 17:59 WBC RBC Hgb Hct MCV MCH MCHC RDW Plt Count Lymph % (Auto) Eos % (Auto) [place] # Eos # Baso # Seg Neutrophils % Seg Neuts % (Manual) Lymphocytes % (Manual) Monocytes % (Manual) Nucleated RBC % Seg Neutrophils # Seg Neutrophils # Man Lymphocytes # (Manual) Monocytes # (Manual) Eosinophils # (Manual) APTT POC ABG pH ABG pH POC ABG pCO2 POC ABG pO2 ABG pO2 ABG HCO3 ABG O2 Saturation ABG Base Excess ABG Hemoglobin VBG pH Oxyhemoglobin Sodium Potassium Chloride Carbon Dioxide BUN Creatinine Glucose POC Glucose 358 H 327 H 355 H Lactic Acid Calcium Phosphorus Total Bilirubin AST ALT C-Reactive Protein Total Protein Albumin Triglycerides Amylase Lipase Urine WBC (Auto) Vancomycin Trough Crossmatch 12/19/17 12/20/17 12/20/17 21:38 02:21 03:42 WBC RBC Hgb Hct MCV MCH MCHC RDW Plt Count Lymph % (Auto) Eos % (Auto) [place] # Eos # Baso # Seg Neutrophils % Seg Neuts % (Manual) Lymphocytes % (Manual) Monocytes % (Manual) Nucleated RBC % Seg Neutrophils # Seg Neutrophils # Man Lymphocytes # (Manual) Monocytes # (Manual) Eosinophils # (Manual) APTT POC ABG pH 7.494 H ABG pH POC ABG pCO2 POC ABG pO2 ABG pO2 ABG HCO3 ABG O2 Saturation ABG Base Excess ABG Hemoglobin VBG pH Oxyhemoglobin Sodium Potassium Chloride Carbon Dioxide BUN Creatinine Glucose POC Glucose 329 H 354 H Lactic Acid Calcium Phosphorus Total Bilirubin AST ALT C-Reactive Protein Total Protein Albumin Triglycerides Amylase Lipase Urine WBC (Auto) Vancomycin Trough Crossmatch 12/20/17 12/20/17 12/20/17 04:08 04:08 04:08 WBC 22.7 H RBC 3.26 L Hgb 10.6 L Hct 32.9 L MCV 101 H MCH 33 H MCHC RDW Plt Count 78 L Lymph % (Auto) Eos % (Auto) [place] # Eos # Baso # Seg Neutrophils % Seg Neuts % (Manual) 80.0 H Lymphocytes % (Manual) 6.0 L Monocytes % (Manual) Nucleated RBC % Seg Neutrophils # Seg Neutrophils # Man 18.2 H Lymphocytes # (Manual) Monocytes # (Manual) Eosinophils # (Manual) APTT POC ABG pH ABG pH POC ABG pCO2 POC ABG pO2 ABG pO2 ABG HCO3 ABG O2 Saturation ABG Base Excess ABG Hemoglobin VBG pH Oxyhemoglobin Sodium Potassium Chloride Carbon Dioxide 31 H BUN 30 H Creatinine 0.6 L Glucose 365 H POC Glucose Lactic Acid Calcium Phosphorus Total Bilirubin AST ALT C-Reactive Protein Total Protein Albumin Triglycerides 981 H Amylase Lipase Urine WBC (Auto) Vancomycin Trough Crossmatch 12/20/17 12/20/17 12/20/17 05:15 10:47 13:40 WBC RBC Hgb Hct MCV MCH MCHC RDW Plt Count Lymph % (Auto) Eos % (Auto) [place] # Eos # Baso # Seg Neutrophils % Seg Neuts % (Manual) Lymphocytes % (Manual) Monocytes % (Manual) Nucleated RBC % Seg Neutrophils # Seg Neutrophils # Man Lymphocytes # (Manual) Monocytes # (Manual) Eosinophils # (Manual) APTT POC ABG pH ABG pH POC ABG pCO2 POC ABG pO2 ABG pO2 ABG HCO3 ABG O2 Saturation ABG Base Excess ABG Hemoglobin VBG pH Oxyhemoglobin Sodium Potassium Chloride Carbon Dioxide BUN Creatinine Glucose POC Glucose 342 H 330 H Lactic Acid Calcium Phosphorus Total Bilirubin AST ALT C-Reactive Protein 7.10 H Total Protein Albumin Triglycerides Amylase Lipase Urine WBC (Auto) Vancomycin Trough Crossmatch 12/20/17 12/20/17 12/20/17 13:40 14:52 16:55 WBC RBC Hgb Hct MCV MCH MCHC RDW Plt Count Lymph % (Auto) Eos % (Auto) [place] # Eos # Baso # Seg Neutrophils % Seg Neuts % (Manual) Lymphocytes % (Manual) Monocytes % (Manual) Nucleated RBC % Seg Neutrophils # Seg Neutrophils # Man Lymphocytes # (Manual) Monocytes # (Manual) Eosinophils # (Manual) APTT POC ABG pH 7.484 H ABG pH POC ABG pCO2 POC ABG pO2 ABG pO2 ABG HCO3 ABG O2 Saturation ABG Base Excess ABG Hemoglobin VBG pH Oxyhemoglobin Sodium Potassium Chloride Carbon Dioxide BUN Creatinine Glucose POC Glucose 293 H Lactic Acid Calcium Phosphorus Total Bilirubin AST ALT C-Reactive Protein Total Protein Albumin Triglycerides 1042 H Amylase Lipase Urine WBC (Auto) Vancomycin Trough Crossmatch 12/20/17 12/20/17 12/21/17 18:00 21:58 02:05 WBC RBC Hgb Hct MCV MCH MCHC RDW Plt Count Lymph % (Auto) Eos % (Auto) [place] # Eos # Baso # Seg Neutrophils % Seg Neuts % (Manual) Lymphocytes % (Manual) Monocytes % (Manual) Nucleated RBC % Seg Neutrophils # Seg Neutrophils # Man Lymphocytes # (Manual) Monocytes # (Manual) Eosinophils # (Manual) APTT POC ABG pH ABG pH POC ABG pCO2 POC ABG pO2 ABG pO2 ABG HCO3 ABG O2 Saturation ABG Base Excess ABG Hemoglobin VBG pH Oxyhemoglobin Sodium Potassium Chloride Carbon Dioxide BUN Creatinine Glucose POC Glucose 268 H 272 H 229 H Lactic Acid Calcium Phosphorus Total Bilirubin AST ALT C-Reactive Protein Total Protein Albumin Triglycerides Amylase Lipase Urine WBC (Auto) Vancomycin Trough Crossmatch 12/21/17 12/21/17 12/21/17 03:59 06:23 08:57 WBC RBC Hgb Hct MCV MCH MCHC RDW Plt Count Lymph % (Auto) Eos % (Auto) [place] # Eos # Baso # Seg Neutrophils % Seg Neuts % (Manual) Lymphocytes % (Manual) Monocytes % (Manual) Nucleated RBC % Seg Neutrophils # Seg Neutrophils # Man Lymphocytes # (Manual) Monocytes # (Manual) Eosinophils # (Manual) APTT POC ABG pH 7.474 H ABG pH POC ABG pCO2 POC ABG pO2 71 L ABG pO2 ABG HCO3 ABG O2 Saturation ABG Base Excess ABG Hemoglobin VBG pH Oxyhemoglobin Sodium Potassium Chloride Carbon Dioxide BUN Creatinine Glucose POC Glucose 182 H 217 H Lactic Acid Calcium Phosphorus Total Bilirubin AST ALT C-Reactive Protein Total Protein Albumin Triglycerides Amylase Lipase Urine WBC (Auto) Vancomycin Trough Crossmatch 12/21/17 12/21/17 12/21/17 13:59 18:00 21:20 WBC RBC Hgb Hct MCV MCH MCHC RDW Plt Count Lymph % (Auto) Eos % (Auto) [place] # Eos # Baso # Seg Neutrophils % Seg Neuts % (Manual) Lymphocytes % (Manual) Monocytes % (Manual) Nucleated RBC % Seg Neutrophils # Seg Neutrophils # Man Lymphocytes # (Manual) Monocytes # (Manual) Eosinophils # (Manual) APTT POC ABG pH ABG pH POC ABG pCO2 POC ABG pO2 ABG pO2 ABG HCO3 ABG O2 Saturation ABG Base Excess ABG Hemoglobin VBG pH Oxyhemoglobin Sodium Potassium Chloride Carbon Dioxide BUN Creatinine Glucose POC Glucose 185 H 176 H 187 H Lactic Acid Calcium Phosphorus Total Bilirubin AST ALT C-Reactive Protein Total Protein Albumin Triglycerides Amylase Lipase Urine WBC (Auto) Vancomycin Trough Crossmatch 12/21/17 12/22/17 12/22/17 23:48 04:39 05:30 WBC RBC Hgb Hct MCV MCH MCHC RDW Plt Count Lymph % (Auto) Eos % (Auto) [place] # Eos # Baso # Seg Neutrophils % Seg Neuts % (Manual) Lymphocytes % (Manual) Monocytes % (Manual) Nucleated RBC % Seg Neutrophils # Seg Neutrophils # Man Lymphocytes # (Manual) Monocytes # (Manual) Eosinophils # (Manual) APTT POC ABG pH 7.528 H ABG pH POC ABG pCO2 POC ABG pO2 63 L ABG pO2 ABG HCO3 ABG O2 Saturation ABG Base Excess ABG Hemoglobin VBG pH Oxyhemoglobin Sodium Potassium Chloride Carbon Dioxide BUN Creatinine Glucose POC Glucose 126 H 117 H Lactic Acid Calcium Phosphorus Total Bilirubin AST ALT C-Reactive Protein Total Protein Albumin Triglycerides Amylase Lipase Urine WBC (Auto) Vancomycin Trough Crossmatch 12/22/17 12/22/17 12/22/17 09:12 10:34 10:34 WBC 29.5 H RBC 3.44 L Hgb 11.2 L Hct 34.2 L MCV 99 H MCH 33 H MCHC RDW 13.1 L Plt Count 97 L Lymph % (Auto) Eos % (Auto) [place] # Eos # Baso # Seg Neutrophils % Seg Neuts % (Manual) 88.0 H Lymphocytes % (Manual) 5.0 L Monocytes % (Manual) Nucleated RBC % Seg Neutrophils # Seg Neutrophils # Man 26.0 H Lymphocytes # (Manual) Monocytes # (Manual) Eosinophils # (Manual) APTT POC ABG pH ABG pH POC ABG pCO2 POC ABG pO2 ABG pO2 ABG HCO3 ABG O2 Saturation ABG Base Excess ABG Hemoglobin VBG pH Oxyhemoglobin Sodium 146 H Potassium 3.1 L Chloride Carbon Dioxide BUN 25 H Creatinine 0.7 L Glucose 146 H POC Glucose 168 H Lactic Acid Calcium 8.1 L Phosphorus Total Bilirubin AST ALT C-Reactive Protein Total Protein Albumin Triglycerides Amylase Lipase Urine WBC (Auto) Vancomycin Trough Crossmatch 12/22/17 12/22/17 12/22/17 14:51 17:21 21:43 WBC RBC Hgb Hct MCV MCH MCHC RDW Plt Count Lymph % (Auto) Eos % (Auto) [place] # Eos # Baso # Seg Neutrophils % Seg Neuts % (Manual) Lymphocytes % (Manual) Monocytes % (Manual) Nucleated RBC % Seg Neutrophils # Seg Neutrophils # Man Lymphocytes # (Manual) Monocytes # (Manual) Eosinophils # (Manual) APTT POC ABG pH ABG pH POC ABG pCO2 POC ABG pO2 ABG pO2 ABG HCO3 ABG O2 Saturation ABG Base Excess ABG Hemoglobin VBG pH Oxyhemoglobin Sodium Potassium Chloride Carbon Dioxide BUN Creatinine Glucose POC Glucose 125 H 110 H 153 H Lactic Acid Calcium Phosphorus Total Bilirubin AST ALT C-Reactive Protein Total Protein Albumin Triglycerides Amylase Lipase Urine WBC (Auto) Vancomycin Trough Crossmatch 12/23/17 12/23/17 12/23/17 04:33 05:28 09:25 WBC 31.4 H RBC 3.05 L Hgb 9.8 L Hct 30.2 L MCV 99 H MCH MCHC RDW 12.9 L Plt Count 101 L Lymph % (Auto) Eos % (Auto) [place] # Eos # Baso # Seg Neutrophils % Seg Neuts % (Manual) 97 H Lymphocytes % (Manual) 2 L Monocytes % (Manual) Nucleated RBC % Seg Neutrophils # Seg Neutrophils # Man 31.1 H Lymphocytes # (Manual) 0.5 L Monocytes # (Manual) Eosinophils # (Manual) APTT POC ABG pH 7.573 H ABG pH POC ABG pCO2 31.0 L POC ABG pO2 63 L ABG pO2 ABG HCO3 ABG O2 Saturation ABG Base Excess ABG Hemoglobin VBG pH Oxyhemoglobin Sodium Potassium Chloride Carbon Dioxide BUN Creatinine Glucose POC Glucose 124 H Lactic Acid Calcium Phosphorus Total Bilirubin AST ALT C-Reactive Protein Total Protein Albumin Triglycerides Amylase Lipase Urine WBC (Auto) Vancomycin Trough Crossmatch 12/23/17 12/23/17 12/23/17 09:25 10:08 14:20 WBC RBC Hgb Hct MCV MCH MCHC RDW Plt Count Lymph % (Auto) Eos % (Auto) [place] # Eos # Baso # Seg Neutrophils % Seg Neuts % (Manual) Lymphocytes % (Manual) Monocytes % (Manual) Nucleated RBC % Seg Neutrophils # Seg Neutrophils # Man Lymphocytes # (Manual) Monocytes # (Manual) Eosinophils # (Manual) APTT POC ABG pH ABG pH POC ABG pCO2 POC ABG pO2 ABG pO2 ABG HCO3 ABG O2 Saturation ABG Base Excess ABG Hemoglobin VBG pH Oxyhemoglobin Sodium Potassium 3.1 L Chloride Carbon Dioxide BUN Creatinine 0.6 L Glucose 169 H POC Glucose 171 H 211 H Lactic Acid Calcium 7.9 L Phosphorus Total Bilirubin AST ALT C-Reactive Protein Total Protein Albumin Triglycerides Amylase Lipase Urine WBC (Auto) Vancomycin Trough Crossmatch 12/23/17 12/23/17 12/24/17 18:59 21:49 01:47 WBC RBC Hgb Hct MCV MCH MCHC RDW Plt Count Lymph % (Auto) Eos % (Auto) [place] # Eos # Baso # Seg Neutrophils % Seg Neuts % (Manual) Lymphocytes % (Manual) Monocytes % (Manual) Nucleated RBC % Seg Neutrophils # Seg Neutrophils # Man Lymphocytes # (Manual) Monocytes # (Manual) Eosinophils # (Manual) APTT POC ABG pH ABG pH POC ABG pCO2 POC ABG pO2 ABG pO2 ABG HCO3 ABG O2 Saturation ABG Base Excess ABG Hemoglobin VBG pH Oxyhemoglobin Sodium Potassium Chloride Carbon Dioxide BUN Creatinine Glucose POC Glucose 175 H 146 H 143 H Lactic Acid Calcium Phosphorus Total Bilirubin AST ALT C-Reactive Protein Total Protein Albumin Triglycerides Amylase Lipase Urine WBC (Auto) Vancomycin Trough Crossmatch 12/24/17 12/24/17 12/24/17 05:40 10:12 13:12 WBC RBC Hgb Hct MCV MCH MCHC RDW Plt Count Lymph % (Auto) Eos % (Auto) [place] # Eos # Baso # Seg Neutrophils % Seg Neuts % (Manual) Lymphocytes % (Manual) Monocytes % (Manual) Nucleated RBC % Seg Neutrophils # Seg Neutrophils # Man Lymphocytes # (Manual) Monocytes # (Manual) Eosinophils # (Manual) APTT POC ABG pH 7.558 H ABG pH POC ABG pCO2 27.6 L POC ABG pO2 71 L ABG pO2 ABG HCO3 ABG O2 Saturation ABG Base Excess ABG Hemoglobin VBG pH Oxyhemoglobin Sodium Potassium Chloride Carbon Dioxide BUN Creatinine Glucose POC Glucose 118 H 111 H Lactic Acid Calcium Phosphorus Total Bilirubin AST ALT C-Reactive Protein Total Protein Albumin Triglycerides Amylase Lipase Urine WBC (Auto) Vancomycin Trough Crossmatch 12/24/17 12/24/17 12/24/17 16:26 20:44 21:49 WBC RBC Hgb Hct MCV MCH MCHC RDW Plt Count Lymph % (Auto) Eos % (Auto) [place] # Eos # Baso # Seg Neutrophils % Seg Neuts % (Manual) Lymphocytes % (Manual) Monocytes % (Manual) Nucleated RBC % Seg Neutrophils # Seg Neutrophils # Man Lymphocytes # (Manual) Monocytes # (Manual) Eosinophils # (Manual) APTT POC ABG pH ABG pH POC ABG pCO2 POC ABG pO2 ABG pO2 ABG HCO3 ABG O2 Saturation ABG Base Excess ABG Hemoglobin VBG pH Oxyhemoglobin Sodium Potassium Chloride Carbon Dioxide BUN Creatinine Glucose POC Glucose 113 H 124 H 115 H Lactic Acid Calcium Phosphorus Total Bilirubin AST ALT C-Reactive Protein Total Protein Albumin Triglycerides Amylase Lipase Urine WBC (Auto) Vancomycin Trough Crossmatch 12/24/17 12/25/17 12/25/17 Unknown 02:26 03:38 WBC RBC Hgb Hct MCV MCH MCHC RDW Plt Count Lymph % (Auto) Eos % (Auto) [place] # Eos # Baso # Seg Neutrophils % Seg Neuts % (Manual) Lymphocytes % (Manual) Monocytes % (Manual) Nucleated RBC % Seg Neutrophils # Seg Neutrophils # Man Lymphocytes # (Manual) Monocytes # (Manual) Eosinophils # (Manual) APTT POC ABG pH 7.503 H ABG pH POC ABG pCO2 POC ABG pO2 66 L ABG pO2 ABG HCO3 ABG O2 Saturation ABG Base Excess ABG Hemoglobin VBG pH Oxyhemoglobin Sodium Potassium 3.0 L Chloride Carbon Dioxide BUN Creatinine 0.5 L Glucose 166 H POC Glucose 106 H Lactic Acid Calcium 7.8 L Phosphorus Total Bilirubin AST ALT C-Reactive Protein Total Protein Albumin Triglycerides Amylase Lipase Urine WBC (Auto) Vancomycin Trough Crossmatch 12/25/17 12/25/17 12/25/17 04:58 12:58 15:06 WBC RBC Hgb Hct MCV MCH MCHC RDW Plt Count Lymph % (Auto) Eos % (Auto) [place] # Eos # Baso # Seg Neutrophils % Seg Neuts % (Manual) Lymphocytes % (Manual) Monocytes % (Manual) Nucleated RBC % Seg Neutrophils # Seg Neutrophils # Man Lymphocytes # (Manual) Monocytes # (Manual) Eosinophils # (Manual) APTT POC ABG pH ABG pH POC ABG pCO2 POC ABG pO2 ABG pO2 ABG HCO3 ABG O2 Saturation ABG Base Excess ABG Hemoglobin VBG pH Oxyhemoglobin Sodium Potassium Chloride Carbon Dioxide BUN Creatinine Glucose POC Glucose 113 H 118 H Lactic Acid Calcium Phosphorus Total Bilirubin AST ALT C-Reactive Protein Total Protein Albumin Triglycerides Amylase Lipase Urine WBC (Auto) Vancomycin Trough 22.5 H Crossmatch 12/25/17 12/25/17 12/25/17 17:59 21:33 Unknown WBC 20.5 H RBC 2.75 L Hgb 9.1 L Hct 27.1 L MCV 99 H MCH 33 H MCHC RDW Plt Count 126 L Lymph % (Auto) Eos % (Auto) [place] # Eos # Baso # Seg Neutrophils % Seg Neuts % (Manual) 89.0 H Lymphocytes % (Manual) 6.0 L Monocytes % (Manual) Nucleated RBC % Seg Neutrophils # Seg Neutrophils # Man 18.2 H Lymphocytes # (Manual) Monocytes # (Manual) Eosinophils # (Manual) APTT POC ABG pH ABG pH POC ABG pCO2 POC ABG pO2 ABG pO2 ABG HCO3 ABG O2 Saturation ABG Base Excess ABG Hemoglobin VBG pH Oxyhemoglobin Sodium Potassium Chloride Carbon Dioxide BUN Creatinine Glucose POC Glucose 145 H 167 H Lactic Acid Calcium Phosphorus Total Bilirubin AST ALT C-Reactive Protein Total Protein Albumin Triglycerides Amylase Lipase Urine WBC (Auto) Vancomycin Trough Crossmatch 12/25/17 12/26/17 12/26/17 Unknown 02:26 05:29 WBC RBC Hgb Hct MCV MCH MCHC RDW Plt Count Lymph % (Auto) Eos % (Auto) [place] # Eos # Baso # Seg Neutrophils % Seg Neuts % (Manual) Lymphocytes % (Manual) Monocytes % (Manual) Nucleated RBC % Seg Neutrophils # Seg Neutrophils # Man Lymphocytes # (Manual) Monocytes # (Manual) Eosinophils # (Manual) APTT POC ABG pH ABG pH POC ABG pCO2 POC ABG pO2 ABG pO2 ABG HCO3 ABG O2 Saturation ABG Base Excess ABG Hemoglobin VBG pH Oxyhemoglobin Sodium Potassium 2.8 L* Chloride Carbon Dioxide BUN Creatinine 0.6 L Glucose POC Glucose 167 H 216 H Lactic Acid Calcium 7.4 L Phosphorus Total Bilirubin AST ALT C-Reactive Protein Total Protein Albumin Triglycerides Amylase Lipase Urine WBC (Auto) Vancomycin Trough Crossmatch 12/26/17 12/26/17 12/26/17 10:21 14:30 18:35 WBC RBC Hgb Hct MCV MCH MCHC RDW Plt Count Lymph % (Auto) Eos % (Auto) [place] # Eos # Baso # Seg Neutrophils % Seg Neuts % (Manual) Lymphocytes % (Manual) Monocytes % (Manual) Nucleated RBC % Seg Neutrophils # Seg Neutrophils # Man Lymphocytes # (Manual) Monocytes # (Manual) Eosinophils # (Manual) APTT POC ABG pH ABG pH POC ABG pCO2 POC ABG pO2 ABG pO2 ABG HCO3 ABG O2 Saturation ABG Base Excess ABG Hemoglobin VBG pH Oxyhemoglobin Sodium Potassium Chloride Carbon Dioxide BUN Creatinine Glucose POC Glucose 164 H 157 H 146 H Lactic Acid Calcium Phosphorus Total Bilirubin AST ALT C-Reactive Protein Total Protein Albumin Triglycerides Amylase Lipase Urine WBC (Auto) Vancomycin Trough Crossmatch 12/26/17 12/26/17 12/27/17 21:21 Unknown 01:54 WBC RBC Hgb Hct MCV MCH MCHC RDW Plt Count Lymph % (Auto) Eos % (Auto) [place] # Eos # Baso # Seg Neutrophils % Seg Neuts % (Manual) Lymphocytes % (Manual) Monocytes % (Manual) Nucleated RBC % Seg Neutrophils # Seg Neutrophils # Man Lymphocytes # (Manual) Monocytes # (Manual) Eosinophils # (Manual) APTT POC ABG pH ABG pH POC ABG pCO2 POC ABG pO2 ABG pO2 ABG HCO3 ABG O2 Saturation ABG Base Excess ABG Hemoglobin VBG pH Oxyhemoglobin Sodium Potassium 3.0 L Chloride Carbon Dioxide BUN Creatinine 0.5 L Glucose 166 H POC Glucose 132 H 157 H Lactic Acid Calcium 7.8 L Phosphorus Total Bilirubin AST ALT C-Reactive Protein Total Protein Albumin Triglycerides Amylase Lipase Urine WBC (Auto) Vancomycin Trough Crossmatch 12/27/17 12/27/17 12/27/17 05:20 05:20 05:44 WBC 26.4 H RBC 2.83 L Hgb 9.3 L Hct 27.6 L MCV 98 H MCH 33 H MCHC RDW Plt Count Lymph % (Auto) Eos % (Auto) [place] # Eos # Baso # Seg Neutrophils % Seg Neuts % (Manual) 85.0 H Lymphocytes % (Manual) 5.0 L Monocytes % (Manual) Nucleated RBC % Seg Neutrophils # Seg Neutrophils # Man 22.4 H Lymphocytes # (Manual) Monocytes # (Manual) Eosinophils # (Manual) 0.5 H APTT POC ABG pH ABG pH POC ABG pCO2 POC ABG pO2 ABG pO2 ABG HCO3 ABG O2 Saturation ABG Base Excess ABG Hemoglobin VBG pH Oxyhemoglobin Sodium Potassium 2.3 L* D Chloride Carbon Dioxide BUN 7 L Creatinine 0.6 L Glucose 123 H POC Glucose 128 H Lactic Acid Calcium 8.1 L Phosphorus Total Bilirubin AST ALT C-Reactive Protein Total Protein Albumin Triglycerides Amylase Lipase Urine WBC (Auto) Vancomycin Trough Crossmatch 12/27/17 12/27/17 12/27/17 10:04 14:44 15:30 WBC RBC Hgb Hct MCV MCH MCHC RDW Plt Count Lymph % (Auto) Eos % (Auto) [place] # Eos # Baso # Seg Neutrophils % Seg Neuts % (Manual) Lymphocytes % (Manual) Monocytes % (Manual) Nucleated RBC % Seg Neutrophils # Seg Neutrophils # Man Lymphocytes # (Manual) Monocytes # (Manual) Eosinophils # (Manual) APTT POC ABG pH ABG pH POC ABG pCO2 POC ABG pO2 ABG pO2 ABG HCO3 ABG O2 Saturation ABG Base Excess ABG Hemoglobin VBG pH Oxyhemoglobin Sodium Potassium 3.1 L D Chloride Carbon Dioxide BUN Creatinine Glucose POC Glucose 115 H 128 H Lactic Acid Calcium Phosphorus Total Bilirubin AST ALT C-Reactive Protein Total Protein Albumin Triglycerides Amylase Lipase Urine WBC (Auto) Vancomycin Trough Crossmatch 12/28/17 12/28/17 12/28/17 00:39 02:13 05:17 WBC RBC Hgb Hct MCV MCH MCHC RDW Plt Count Lymph % (Auto) Eos % (Auto) [place] # Eos # Baso # Seg Neutrophils % Seg Neuts % (Manual) Lymphocytes % (Manual) Monocytes % (Manual) Nucleated RBC % Seg Neutrophils # Seg Neutrophils # Man Lymphocytes # (Manual) Monocytes # (Manual) Eosinophils # (Manual) APTT POC ABG pH ABG pH 7.497 H POC ABG pCO2 POC ABG pO2 ABG pO2 71.4 L ABG HCO3 29.9 H ABG O2 Saturation ABG Base Excess 6.2 H ABG Hemoglobin 7.9 L VBG pH Oxyhemoglobin 94.9 L Sodium Potassium Chloride Carbon Dioxide BUN Creatinine Glucose POC Glucose 112 H 108 H Lactic Acid Calcium Phosphorus Total Bilirubin AST ALT C-Reactive Protein Total Protein Albumin Triglycerides Amylase Lipase Urine WBC (Auto) Vancomycin Trough Crossmatch 12/28/17 12/28/17 12/28/17 08:47 08:47 09:10 WBC 28.1 H RBC 2.76 L Hgb 9.1 L Hct 27.0 L MCV 98 H MCH 33 H MCHC RDW Plt Count Lymph % (Auto) Eos % (Auto) [place] # Eos # Baso # Seg Neutrophils % Seg Neuts % (Manual) Lymphocytes % (Manual) Monocytes % (Manual) Nucleated RBC % Seg Neutrophils # Seg Neutrophils # Man Lymphocytes # (Manual) Monocytes # (Manual) Eosinophils # (Manual) APTT POC ABG pH ABG pH POC ABG pCO2 POC ABG pO2 ABG pO2 ABG HCO3 ABG O2 Saturation ABG Base Excess ABG Hemoglobin VBG pH Oxyhemoglobin Sodium Potassium 2.2 L* D Chloride Carbon Dioxide BUN 5 L Creatinine 0.5 L Glucose 106 H POC Glucose Lactic Acid Calcium 8.3 L Phosphorus 2.20 L Total Bilirubin AST ALT C-Reactive Protein Total Protein Albumin Triglycerides Amylase Lipase Urine WBC (Auto) Vancomycin Trough Crossmatch 12/28/17 12/28/17 12/28/17 13:28 14:22 18:48 WBC RBC Hgb Hct MCV MCH MCHC RDW Plt Count Lymph % (Auto) Eos % (Auto) [place] # Eos # Baso # Seg Neutrophils % Seg Neuts % (Manual) Lymphocytes % (Manual) Monocytes % (Manual) Nucleated RBC % Seg Neutrophils # Seg Neutrophils # Man Lymphocytes # (Manual) Monocytes # (Manual) Eosinophils # (Manual) APTT POC ABG pH ABG pH 7.476 H POC ABG pCO2 POC ABG pO2 ABG pO2 167.7 H ABG HCO3 30.9 H ABG O2 Saturation 99.1 H ABG Base Excess 6.7 H ABG Hemoglobin 8.5 L VBG pH Oxyhemoglobin Sodium Potassium Chloride Carbon Dioxide BUN Creatinine Glucose POC Glucose 141 H 129 H Lactic Acid Calcium Phosphorus Total Bilirubin AST ALT C-Reactive Protein Total Protein Albumin Triglycerides Amylase Lipase Urine WBC (Auto) Vancomycin Trough Crossmatch 12/28/17 12/29/17 12/29/17 21:22 02:45 05:11 WBC RBC Hgb Hct MCV MCH MCHC RDW Plt Count Lymph % (Auto) Eos % (Auto) [place] # Eos # Baso # Seg Neutrophils % Seg Neuts % (Manual) Lymphocytes % (Manual) Monocytes % (Manual) Nucleated RBC % Seg Neutrophils # Seg Neutrophils # Man Lymphocytes # (Manual) Monocytes # (Manual) Eosinophils # (Manual) APTT POC ABG pH ABG pH POC ABG pCO2 POC ABG pO2 ABG pO2 ABG HCO3 ABG O2 Saturation ABG Base Excess ABG Hemoglobin VBG pH Oxyhemoglobin Sodium Potassium Chloride Carbon Dioxide BUN Creatinine Glucose POC Glucose 123 H 138 H 138 H Lactic Acid Calcium Phosphorus Total Bilirubin AST ALT C-Reactive Protein Total Protein Albumin Triglycerides Amylase Lipase Urine WBC (Auto) Vancomycin Trough Crossmatch 12/29/17 12/29/17 12/29/17 05:50 08:04 08:04 WBC 20.8 H RBC 2.26 L Hgb 7.5 L Hct 22.7 L MCV 100 H MCH 33 H MCHC RDW Plt Count Lymph % (Auto) Eos % (Auto) [place] # Eos # Baso # Seg Neutrophils % Seg Neuts % (Manual) 93.0 H Lymphocytes % (Manual) 2.0 L Monocytes % (Manual) Nucleated RBC % Seg Neutrophils # Seg Neutrophils # Man 19.3 H Lymphocytes # (Manual) 0.4 L Monocytes # (Manual) Eosinophils # (Manual) 0.7 H APTT POC ABG pH ABG pH 7.467 H POC ABG pCO2 POC ABG pO2 ABG pO2 ABG HCO3 28.2 H ABG O2 Saturation ABG Base Excess 4.0 H ABG Hemoglobin < 5.1 L VBG pH Oxyhemoglobin Sodium Potassium 3.0 L D Chloride Carbon Dioxide BUN Creatinine 0.5 L Glucose 147 H POC Glucose Lactic Acid Calcium 7.8 L Phosphorus Total Bilirubin AST ALT C-Reactive Protein Total Protein 5.6 L Albumin 2.4 L Triglycerides Amylase Lipase Urine WBC (Auto) Vancomycin Trough Crossmatch 12/29/17 12/29/17 12/29/17 08:20 10:59 14:09 WBC RBC Hgb Hct MCV MCH MCHC RDW Plt Count Lymph % (Auto) Eos % (Auto) [place] # Eos # Baso # Seg Neutrophils % Seg Neuts % (Manual) Lymphocytes % (Manual) Monocytes % (Manual) Nucleated RBC % Seg Neutrophils # Seg Neutrophils # Man Lymphocytes # (Manual) Monocytes # (Manual) Eosinophils # (Manual) APTT POC ABG pH ABG pH POC ABG pCO2 POC ABG pO2 ABG pO2 ABG HCO3 ABG O2 Saturation ABG Base Excess ABG Hemoglobin VBG pH Oxyhemoglobin Sodium Potassium Chloride Carbon Dioxide BUN Creatinine Glucose POC Glucose 153 H 186 H 183 H Lactic Acid Calcium Phosphorus Total Bilirubin AST ALT C-Reactive Protein Total Protein Albumin Triglycerides Amylase Lipase Urine WBC (Auto) Vancomycin Trough Crossmatch 12/29/17 12/29/17 12/29/17 18:03 22:05 22:56 WBC RBC Hgb Hct MCV MCH MCHC RDW Plt Count Lymph % (Auto) Eos % (Auto) [place] # Eos # Baso # Seg Neutrophils % Seg Neuts % (Manual) Lymphocytes % (Manual) Monocytes % (Manual) Nucleated RBC % Seg Neutrophils # Seg Neutrophils # Man Lymphocytes # (Manual) Monocytes # (Manual) Eosinophils # (Manual) APTT POC ABG pH ABG pH POC ABG pCO2 POC ABG pO2 ABG pO2 ABG HCO3 ABG O2 Saturation ABG Base Excess ABG Hemoglobin VBG pH Oxyhemoglobin Sodium Potassium Chloride Carbon Dioxide BUN Creatinine Glucose POC Glucose 159 H 146 H 179 H Lactic Acid Calcium Phosphorus Total Bilirubin AST ALT C-Reactive Protein Total Protein Albumin Triglycerides Amylase Lipase Urine WBC (Auto) Vancomycin Trough Crossmatch 12/30/17 12/30/17 12/30/17 02:03 04:50 04:50 WBC 18.3 H RBC 2.22 L Hgb 7.4 L Hct 23.0 L MCV 104 H MCH 33 H MCHC RDW Plt Count 137 L Lymph % (Auto) 9.0 L Eos % (Auto) [place] # Eos # 0.5 H Baso # Seg Neutrophils % 84.9 H Seg Neuts % (Manual) Lymphocytes % (Manual) Monocytes % (Manual) Nucleated RBC % Seg Neutrophils # 15.6 H Seg Neutrophils # Man Lymphocytes # (Manual) Monocytes # (Manual) Eosinophils # (Manual) APTT POC ABG pH ABG pH POC ABG pCO2 POC ABG pO2 ABG pO2 ABG HCO3 ABG O2 Saturation ABG Base Excess ABG Hemoglobin VBG pH Oxyhemoglobin Sodium 147 H Potassium 3.1 L D Chloride 107.5 H Carbon Dioxide BUN Creatinine 0.5 L Glucose 120 H POC Glucose 118 H Lactic Acid Calcium 7.4 L Phosphorus Total Bilirubin AST ALT C-Reactive Protein Total Protein Albumin Triglycerides Amylase Lipase Urine WBC (Auto) Vancomycin Trough Crossmatch 12/30/17 12/30/17 12/30/17 05:04 13:53 17:33 WBC RBC Hgb Hct MCV MCH MCHC RDW Plt Count Lymph % (Auto) Eos % (Auto) [place] # Eos # Baso # Seg Neutrophils % Seg Neuts % (Manual) Lymphocytes % (Manual) Monocytes % (Manual) Nucleated RBC % Seg Neutrophils # Seg Neutrophils # Man Lymphocytes # (Manual) Monocytes # (Manual) Eosinophils # (Manual) APTT POC ABG pH ABG pH POC ABG pCO2 POC ABG pO2 ABG pO2 ABG HCO3 ABG O2 Saturation ABG Base Excess ABG Hemoglobin VBG pH Oxyhemoglobin Sodium Potassium Chloride Carbon Dioxide BUN Creatinine Glucose POC Glucose 150 H 113 H 145 H Lactic Acid Calcium Phosphorus Total Bilirubin AST ALT C-Reactive Protein Total Protein Albumin Triglycerides Amylase Lipase Urine WBC (Auto) Vancomycin Trough Crossmatch 12/31/17 12/31/17 12/31/17 01:54 03:15 03:15 WBC 17.1 H RBC 2.08 L Hgb 6.9 L Hct 20.6 L MCV 99 H MCH 33 H MCHC RDW 13.1 L Plt Count Lymph % (Auto) 10.5 L Eos % (Auto) [place] # Eos # 0.6 H Baso # Seg Neutrophils % 82.3 H Seg Neuts % (Manual) Lymphocytes % (Manual) Monocytes % (Manual) Nucleated RBC % Seg Neutrophils # 14.0 H Seg Neutrophils # Man Lymphocytes # (Manual) Monocytes # (Manual) Eosinophils # (Manual) APTT POC ABG pH ABG pH POC ABG pCO2 POC ABG pO2 ABG pO2 ABG HCO3 ABG O2 Saturation ABG Base Excess ABG Hemoglobin VBG pH Oxyhemoglobin Sodium Potassium 3.5 L Chloride Carbon Dioxide BUN Creatinine 0.6 L Glucose POC Glucose 69 L Lactic Acid Calcium 7.8 L Phosphorus Total Bilirubin AST ALT C-Reactive Protein Total Protein Albumin Triglycerides Amylase Lipase Urine WBC (Auto) Vancomycin Trough Crossmatch 12/31/17 12/31/1718 05:15 09:25 10:17 WBC RBC Hgb Hct MCV MCH MCHC RDW Plt Count Lymph % (Auto) Eos % (Auto) [place] # Eos # Baso # Seg Neutrophils % Seg Neuts % (Manual) Lymphocytes % (Manual) Monocytes % (Manual) Nucleated RBC % Seg Neutrophils # Seg Neutrophils # Man Lymphocytes # (Manual) Monocytes # (Manual) Eosinophils # (Manual) APTT POC ABG pH ABG pH 7.516 H POC ABG pCO2 POC ABG pO2 ABG pO2 69.2 L ABG HCO3 28.7 H ABG O2 Saturation ABG Base Excess 5.3 H ABG Hemoglobin 6.6 L VBG pH Oxyhemoglobin 93.8 L Sodium Potassium Chloride Carbon Dioxide BUN Creatinine Glucose POC Glucose 143 H Lactic Acid Calcium Phosphorus Total Bilirubin AST ALT C-Reactive Protein Total Protein Albumin Triglycerides Amylase Lipase Urine WBC (Auto) Vancomycin Trough Crossmatch See Detail 12/31/17 12/31/17 12/31/17 14:20 18:30 21:40 WBC RBC Hgb Hct MCV MCH MCHC RDW Plt Count Lymph % (Auto) Eos % (Auto) [place] # Eos # Baso # Seg Neutrophils % Seg Neuts % (Manual) Lymphocytes % (Manual) Monocytes % (Manual) Nucleated RBC % Seg Neutrophils # Seg Neutrophils # Man Lymphocytes # (Manual) Monocytes # (Manual) Eosinophils # (Manual) APTT POC ABG pH ABG pH POC ABG pCO2 POC ABG pO2 ABG pO2 ABG HCO3 ABG O2 Saturation ABG Base Excess ABG Hemoglobin VBG pH Oxyhemoglobin Sodium Potassium Chloride Carbon Dioxide BUN Creatinine Glucose POC Glucose 175 H 137 H 182 H Lactic Acid Calcium Phosphorus Total Bilirubin AST ALT C-Reactive Protein Total Protein Albumin Triglycerides Amylase Lipase Urine WBC (Auto) Vancomycin Trough Crossmatch 12/31/17 01/01/18 01/01/18 23:34 02:09 04:00 WBC 16.4 H RBC 2.41 L Hgb 7.8 L Hct 23.6 L MCV 98 H MCH 33 H MCHC RDW Plt Count Lymph % (Auto) 10.7 L Eos % (Auto) [place] # Eos # 0.7 H Baso # 0.2 H Seg Neutrophils % 79.0 H Seg Neuts % (Manual) Lymphocytes % (Manual) Monocytes % (Manual) Nucleated RBC % Seg Neutrophils # 12.9 H Seg Neutrophils # Man Lymphocytes # (Manual) Monocytes # (Manual) Eosinophils # (Manual) APTT POC ABG pH ABG pH POC ABG pCO2 POC ABG pO2 ABG pO2 ABG HCO3 ABG O2 Saturation ABG Base Excess ABG Hemoglobin VBG pH Oxyhemoglobin Sodium Potassium Chloride Carbon Dioxide BUN Creatinine Glucose POC Glucose 132 H 117 H Lactic Acid Calcium Phosphorus Total Bilirubin AST ALT C-Reactive Protein Total Protein Albumin Triglycerides Amylase Lipase Urine WBC (Auto) Vancomycin Trough Crossmatch 01/01/18 01/01/18 01/01/18 04:00 04:04 05:32 WBC RBC Hgb Hct MCV MCH MCHC RDW Plt Count Lymph % (Auto) Eos % (Auto) [place] # Eos # Baso # Seg Neutrophils % Seg Neuts % (Manual) Lymphocytes % (Manual) Monocytes % (Manual) Nucleated RBC % Seg Neutrophils # Seg Neutrophils # Man Lymphocytes # (Manual) Monocytes # (Manual) Eosinophils # (Manual) APTT POC ABG pH ABG pH 7.458 H POC ABG pCO2 POC ABG pO2 ABG pO2 67.5 L ABG HCO3 27.5 H ABG O2 Saturation 94.4 L ABG Base Excess 3.4 H ABG Hemoglobin 7.8 L VBG pH Oxyhemoglobin 92.1 L Sodium Potassium Chloride Carbon Dioxide BUN Creatinine 0.4 L Glucose 129 H POC Glucose 129 H Lactic Acid Calcium 7.9 L Phosphorus Total Bilirubin AST ALT C-Reactive Protein Total Protein Albumin Triglycerides Amylase Lipase Urine WBC (Auto) Vancomycin Trough Crossmatch 01/01/18 01/01/18 01/01/18 10:10 12:38 17:27 WBC RBC Hgb Hct MCV MCH MCHC RDW Plt Count Lymph % (Auto) Eos % (Auto) [place] # Eos # Baso # Seg Neutrophils % Seg Neuts % (Manual) Lymphocytes % (Manual) Monocytes % (Manual) Nucleated RBC % Seg Neutrophils # Seg Neutrophils # Man Lymphocytes # (Manual) Monocytes # (Manual) Eosinophils # (Manual) APTT POC ABG pH ABG pH POC ABG pCO2 POC ABG pO2 ABG pO2 ABG HCO3 ABG O2 Saturation ABG Base Excess ABG Hemoglobin VBG pH Oxyhemoglobin Sodium Potassium Chloride Carbon Dioxide BUN Creatinine Glucose POC Glucose 155 H 179 H 152 H Lactic Acid Calcium Phosphorus Total Bilirubin AST ALT C-Reactive Protein Total Protein Albumin Triglycerides Amylase Lipase Urine WBC (Auto) Vancomycin Trough Crossmatch 01/02/18 01/02/18 01/02/18 01:42 04:10 04:10 WBC 12.1 H RBC 2.29 L Hgb 7.5 L Hct 22.7 L MCV 99 H MCH 33 H MCHC RDW Plt Count Lymph % (Auto) Eos % (Auto) 5.5 H [place] # 0.9 H Eos # 0.7 H Baso # Seg Neutrophils % Seg Neuts % (Manual) Lymphocytes % (Manual) Monocytes % (Manual) Nucleated RBC % Seg Neutrophils # 8.3 H Seg Neutrophils # Man Lymphocytes # (Manual) Monocytes # (Manual) Eosinophils # (Manual) APTT POC ABG pH ABG pH POC ABG pCO2 POC ABG pO2 ABG pO2 ABG HCO3 ABG O2 Saturation ABG Base Excess ABG Hemoglobin VBG pH Oxyhemoglobin Sodium Potassium Chloride 97.0 L Carbon Dioxide BUN Creatinine 0.4 L Glucose POC Glucose 117 H Lactic Acid Calcium 8.1 L Phosphorus Total Bilirubin AST ALT C-Reactive Protein Total Protein 6.0 L Albumin 2.5 L Triglycerides Amylase Lipase Urine WBC (Auto) Vancomycin Trough Crossmatch 01/02/18 04:57 WBC RBC Hgb Hct MCV MCH MCHC RDW Plt Count Lymph % (Auto) Eos % (Auto) [place] # Eos # Baso # Seg Neutrophils % Seg Neuts % (Manual) Lymphocytes % (Manual) Monocytes % (Manual) Nucleated RBC % Seg Neutrophils # Seg Neutrophils # Man Lymphocytes # (Manual) Monocytes # (Manual) Eosinophils # (Manual) APTT POC ABG pH ABG pH POC ABG pCO2 POC ABG pO2 ABG pO2 ABG HCO3 ABG O2 Saturation ABG Base Excess ABG Hemoglobin VBG pH Oxyhemoglobin Sodium Potassium Chloride Carbon Dioxide BUN Creatinine Glucose POC Glucose 107 H Lactic Acid Calcium Phosphorus Total Bilirubin AST ALT C-Reactive Protein Total Protein Albumin Triglycerides Amylase Lipase Urine WBC (Auto) Vancomycin Trough Crossmatch
[2018-01-02] MEDS: LANTUS SUB-Q SCH (10:05)
[2018-01-02] MEDS: PEPCID PO SCH ×2 (10:06→22:54)
[2018-01-02] MEDS: VITAMIN B-1 PO SCH (10:06)
[2018-01-02] MEDS: POTASSIUM CHLORIDE PO SCH (10:06)
--- NOTE | 2018-01-02 11:34 | Progress Note ---
Assessment and Plan Assessment and plan: --Acute hypoxic respiratory failure : self extubated , intubated again for hypoxic hypercapnic respiratory failure Vent support nebulizers and IV steroids wean as tolerated and extubated --Anemia; received 1 unit PRBC hemoglobin 7.8, monitor --Sepsis/aspiration pneumonia/ARDS Received Zyvox cefepime and Flagyl, monitor off antibiotics per ID --Hypokalemia; corrected closely monitor --Alcohol abuse: sedated, cont iv thiamine, Librium as needed --Hypotension; blood pressures reasonable level, of Levophed --Thrombocytopenia, improving, no evidence of bleeding --Severe protein calorie malnutrition; nutrition supplements, tube feeding and supportive care --DM type 2-continue Accu-Chek sliding scale coverage long-acting insulin, chilled feeding --DVT prophylaxis: Continue heparin and SCDs Consults and recommendations reviewed Plan of care reviewed with the patient's nurse Critical care time 31 minutes The high probability of a clinically significant sudden or life-threatening deterioration of the [infectious, respiratory, hematologic] system(s) required my full and direct attention, intervention and personal management. The aggregate critical care time was [31 ] minutes. This time is in addition to the time spent performing reported procedures but including [ X] Data review and interpretation [ X] Patient assessment and monitoring of vital signs [ X ] Documentation [X] Medication orders and management History Interval history: Patient Seen and examined medical records reviewed Overnight events reported by the nursing staff Patient remains intubated on ventilatory support Vital signs reviewed Hospitalist Physical - Constitutional Vitals: Temp Pulse Resp BP Pulse Ox 98.5 F 88 26 H 108/66 94 01/02/18 08:00 01/02/18 11:00 01/02/18 11:00 01/02/18 11:00 01/02/18 11:00 General appearance: Present: no acute distress, well-nourished, other ( intubated on vent) - EENT Eyes: Present: PERRL, EOM intact - Neck Neck: Present: supple, normal ROM - Respiratory Respiratory effort: normal Respiratory: bilateral: diminished, rhonchi, negative: rales, wheezing - Cardiovascular Rhythm: regular Heart Sounds: Present: S1 & S2 - Extremities Extremities: no ischemia, No edema - Abdominal General gastrointestinal: soft, non-tender, non-distended, normal bowel sounds - Integumentary Integumentary: Present: clear, warm - Psychiatric Psychiatric: other (intubated sedated) - Neurologic Neurologic: other (intubated and sedated) Results - Labs CBC & Chem 7: 01/02/18 04:10 01/02/18 04:10 Labs: Laboratory Last Values WBC 12.1 K/mm3 (4.5-11.0) H 01/02/18 04:10 RBC 2.29 M/mm3 (3.65-5.03) L 01/02/18 04:10 Hgb 7.5 gm/dl (11.8-15.2) L 01/02/18 04:10 Hct 22.7 % (35.5-45.6) L 01/02/18 04:10 MCV 99 fl (84-94) H 01/02/18 04:10 MCH 33 pg (28-32) H 01/02/18 04:10 MCHC 33 % (32-34) 01/02/18 04:10 RDW 14.0 % (13.2-15.2) 01/02/18 04:10 Plt Count 166 K/mm3 (140-440) 01/02/18 04:10 Lymph % (Auto) 18.5 % (13.4-35.0) 01/02/18 04:10 [place] % (Auto) 7.1 % (0.0-7.3) 01/02/18 04:10 Eos % (Auto) 5.5 % (0.0-4.3) H 01/02/18 04:10 Baso % (Auto) 0.3 % (0.0-1.8) 01/02/18 04:10 Lymph # 2.2 K/mm3 (1.2-5.4) 01/02/18 04:10 [place] # 0.9 K/mm3 (0.0-0.8) H 01/02/18 04:10 Eos # 0.7 K/mm3 (0.0-0.4) H 01/02/18 04:10 Baso # 0.0 K/mm3 (0.0-0.1) 01/02/18 04:10 Add Manual Diff Complete 12/29/17 08:04 Total Counted 200 12/29/17 08:04 Seg Neutrophils % 68.6 % (40.0-70.0) 01/02/18 04:10 Seg Neuts % (Manual) 93.0 % (40.0-70.0) H 12/29/17 08:04 Band Neutrophils % 0 % 12/29/17 08:04 Lymphocytes % (Manual) 2.0 % (13.4-35.0) L 12/29/17 08:04 Reactive Lymphs % (Man) 0 % 12/29/17 08:04 Monocytes % (Manual) 1.5 % (0.0-7.3) 12/29/17 08:04 Eosinophils % (Manual) 3.5 % (0.0-4.3) 12/29/17 08:04 Basophils % (Manual) 0 % (0.0-1.8) 12/29/17 08:04 Metamyelocytes % 0 % 12/29/17 08:04 Myelocytes % 0 % 12/29/17 08:04 Promyelocytes % 0 % 12/29/17 08:04 Blast Cells % 0 % 12/29/17 08:04 Nucleated RBC % Not Reportable 12/29/17 08:04 Seg Neutrophils # 8.3 K/mm3 (1.8-7.7) H 01/02/18 04:10 Seg Neutrophils # Man 19.3 K/mm3 (1.8-7.7) H 12/29/17 08:04 Band Neutrophils # 0.0 K/mm3 12/29/17 08:04 Lymphocytes # (Manual) 0.4 K/mm3 (1.2-5.4) L 12/29/17 08:04 Abs React Lymphs (Man) 0.0 K/mm3 12/29/17 08:04 Monocytes # (Manual) 0.3 K/mm3 (0.0-0.8) 12/29/17 08:04 Eosinophils # (Manual) 0.7 K/mm3 (0.0-0.4) H 12/29/17 08:04 Basophils # (Manual) 0.0 K/mm3 (0.0-0.1) 12/29/17 08:04 Metamyelocytes # 0.0 K/mm3 12/29/17 08:04 Myelocytes # 0.0 K/mm3 12/29/17 08:04 Promyelocytes # 0.0 K/mm3 12/29/17 08:04 Blast Cells # 0.0 K/mm3 12/29/17 08:04 Pathologist Review 12/23/17 09:25 WBC Morphology Not Reportable 12/29/17 08:04 Hypersegmented Neuts Not Reportable 12/29/17 08:04 Hyposegmented Neuts Not Reportable 12/29/17 08:04 Hypogranular Neuts Not Reportable 12/29/17 08:04 Smudge Cells Not Reportable 12/29/17 08:04 Toxic Granulation Not Reportable 12/29/17 08:04 Toxic Vacuolation Not Reportable 12/29/17 08:04 Dohle Bodies Not Reportable 12/29/17 08:04 Pelger-Huet Anomaly Not Reportable 12/29/17 08:04 Mary Rods Not Reportable 12/29/17 08:04 Platelet Estimate Consistent w auto 12/29/17 08:04 Clumped Platelets Not Reportable 12/29/17 08:04 Plt Clumps, EDTA Not Reportable 12/29/17 08:04 Large Platelets Not Reportable 12/29/17 08:04 Giant Platelets Not Reportable 12/29/17 08:04 Platelet Satelliting Not Reportable 12/29/17 08:04 Plt Morphology Comment Not Reportable 12/29/17 08:04 RBC Morphology Not Reportable 12/29/17 08:04 Dimorphic RBCs Not Reportable 12/29/17 08:04 Polychromasia Not Reportable 12/29/17 08:04 Hypochromasia Not Reportable 12/29/17 08:04 Poikilocytosis Not Reportable 12/29/17 08:04 Anisocytosis 1+ 12/29/17 08:04 Microcytosis Not Reportable 12/29/17 08:04 Macrocytosis Not Reportable 12/29/17 08:04 Spherocytes Not Reportable 12/29/17 08:04 Pappenheimer Bodies Not Reportable 12/29/17 08:04 Sickle Cells Not Reportable 12/29/17 08:04 Target Cells Not Reportable 12/29/17 08:04 Tear Drop Cells Not Reportable 12/29/17 08:04 Ovalocytes Not Reportable 12/29/17 08:04 Stomatocytes 1+ 12/29/17 08:04 Helmet Cells Not Reportable 12/29/17 08:04 [place] Bodies Not Reportable 12/29/17 08:04 [place] Rings Not Reportable 12/29/17 08:04 [place] Cells Not Reportable 12/29/17 08:04 Bite Cells Not Reportable 12/29/17 08:04 Crenated Cell Not Reportable 12/29/17 08:04 Elliptocytes Not Reportable 12/29/17 08:04 Acanthocytes (Spur) Not Reportable 12/29/17 08:04 Rouleaux Not Reportable 12/29/17 08:04 Hemoglobin C Crystals Not Reportable 12/29/17 08:04 Schistocytes Not Reportable 12/29/17 08:04 Malaria parasites Not Reportable 12/29/17 08:04 Vipul Bodies Not Reportable 12/29/17 08:04 Hem Pathologist Commnt No 12/29/17 08:04 PT 14.9 Sec. (12.2-14.9) 12/15/17 04:05 INR 1.11 (0.87-1.13) 12/15/17 04:05 APTT 20.9 Sec. (24.2-36.6) L 12/15/17 04:05 POC ABG pH 7.503 (7.35-7.45) H 12/25/17 03:38 ABG pH 7.458 pH Units (7.350-7.450) H 01/01/18 04:04 POC ABG pCO2 35.8 (35-45) 12/25/17 03:38 ABG pCO2 39.7 mm Hg 01/01/18 04:04 POC ABG pO2 66 (80-105) L 12/25/17 03:38 ABG pO2 67.5 mm Hg (80.0-90.0) L 01/01/18 04:04 POC ABG HCO3 28.1 12/25/17 03:38 ABG HCO3 27.5 mmol/L (20.0-26.0) H 01/01/18 04:04 POC ABG Total CO2 29 12/25/17 03:38 POC ABG O2 Sat 95 12/25/17 03:38 ABG O2 Saturation 94.4 % (95.0-99.0) L 01/01/18 04:04 ABG O2 Content 10.2 (0.0-44) 01/01/18 04:04 POC ABG Base Excess 5 12/25/17 03:38 ABG Base Excess 3.4 mmol/L (-2.0-3.0) H 01/01/18 04:04 ABG Hemoglobin 7.8 gm/dl (14.0-18.0) L 01/01/18 04:04 ABG Carboxyhemoglobin 2.0 % (0.0-5.0) 01/01/18 04:04 ABG Methemoglobin 0.4 % (0.0-1.5) 01/01/18 04:04 VBG pH 7.472 (7.320-7.420) H 12/12/17 19:18 Oxyhemoglobin 92.1 % (95.0-99.0) L 01/01/18 04:04 FiO2 40 % 01/01/18 04:04 Sodium 138 mmol/L (137-145) 01/02/18 04:10 Potassium 3.8 mmol/L (3.6-5.0) 01/02/18 04:10 Chloride 97.0 mmol/L (98-107) L 01/02/18 04:10 Carbon Dioxide 28 mmol/L (22-30) 01/02/18 04:10 Anion Gap 17 mmol/L 01/02/18 04:10 BUN 9 mg/dL (9-20) 01/02/18 04:10 Creatinine 0.4 mg/dL (0.8-1.5) L 01/02/18 04:10 Estimated GFR > 60 ml/min 01/02/18 04:10 BUN/Creatinine Ratio 23 % 01/02/18 04:10 Glucose 93 mg/dL (75-100) 01/02/18 04:10 POC Glucose 107 (70-105) H 01/02/18 04:57 Lactic Acid 2.00 mmol/L (0.7-2.0) 12/13/17 19:38 Calcium 8.1 mg/dL (8.4-10.2) L 01/02/18 04:10 Phosphorus 2.20 mg/dL (2.5-4.5) L 12/28/17 08:47 Magnesium 1.90 mg/dL (1.7-2.3) 12/30/17 04:50 Total Bilirubin 0.30 mg/dL (0.1-1.2) 01/02/18 04:10 AST 20 units/L (5-40) 01/02/18 04:10 ALT 20 units/L (7-56) 01/02/18 04:10 Alkaline Phosphatase 57 units/L (35-129) 01/02/18 04:10 C-Reactive Protein 7.10 mg/dL (0.00-1.30) H 12/20/17 13:40 NT-Pro-B Natriuret Pep 409.9 pg/mL (0-450) 12/12/17 19:02 Total Protein 6.0 g/dL (6.3-8.2) L 01/02/18 04:10 Albumin 2.5 g/dL (3.9-5) L 01/02/18 04:10 Albumin/Globulin Ratio 0.7 % 01/02/18 04:10 Triglycerides 1042 mg/dL (2-149) H 12/20/17 13:40 Amylase 20 units/L (27-131) L 12/13/17 13:47 Lipase 9 units/L (13-60) L 12/13/17 13:47 Urine Color Neeta (Yellow) 12/15/17 17:00 Urine Turbidity Hazy (Clear) 12/15/17 17:00 Urine pH 6.0 (5.0-7.0) 12/15/17 17:00 Ur Specific Jacob 1.027 (1.003-1.030) 12/15/17 17:00 Urine Protein 30 mg/dl mg/dL (Negative) 12/15/17 17:00 Urine Glucose (UA) Neg mg/dL (Negative) 12/15/17 17:00 Urine Ketones Tr mg/dL (Negative) 12/15/17 17:00 Urine Blood Lg (Negative) 12/15/17 17:00 Urine Nitrite Neg (Negative) 12/15/17 17:00 Urine Bilirubin Neg (Negative) 12/15/17 17:00 Urine Ictotest Positive (Negative) 12/12/17 20:42 Urine Urobilinogen < 2.0 mg/dL (<2.0) 12/15/17 17:00 Ur Leukocyte Esterase Tr (Negative) 12/15/17 17:00 Urine WBC (Auto) 38.0 /HPF (0.0-6.0) H 12/15/17 17:00 Urine RBC (Auto) 65.0 /HPF (0.0-6.0) 12/15/17 17:00 U Epithel Cells (Auto) < 1.0 /HPF (0-13.0) 12/12/17 20:42 Urine Bacteria (Auto) 1+ /HPF (Negative) 12/15/17 17:00 Urine Mucus 1+ /HPF 12/12/17 20:42 Vancomycin Trough 22.5 ug/mL (5.0-20.0) H 12/25/17 12:58 JERMAIN Screen Negative (Negative) 12/18/17 16:44 Proteinase 3 (PR3) Ab <1.0 AI (<1.0) 12/18/17 16:33 Myeloperoxidase Ab <1.0 AI (<1.0) 12/18/17 16:33 Complement C3 113 mg/dL (82-185) 12/18/17 16:33 Complement C4 15 mg/dL (15-53) 12/18/17 16:33 Hepatitis A IgM Ab Non-reactive (NonReactive) 12/20/17 13:40 Hep Bs Antigen Non-reactive (Negative) 12/20/17 13:40 Hep B Core IgM Ab Non-reactive (NonReactive) 12/20/17 13:40 Hepatitis C Antibody Non-reactive (NonReactive) 12/20/17 13:40 HIV 1&2 Antibody Rapid Non react (Non React) 12/20/17 13:40 HIV P24 Antigen Non react (Non React) 12/20/17 13:40 Influenza A (Rapid) Negative (Negative) 12/12/17 22:00 Influenza B (Rapid) Negative (Negative) 12/12/17 22:00 Urine Legionella Ag Not detected (Not Detected) 12/14/17 16:15 Miscellaneous Test Flexitest 1 12/14/17 16:15 Blood Type O POSITIVE 12/31/17 09:25 Antibody Screen Negative 12/31/17 09:25 Crossmatch See Detail 12/31/17 09:25
--- NOTE | 2018-01-02 12:06 | Progress Note ---
Assessment and Plan Assessment: 1) Severe Sepsis: fever and leukocytosis better, very slow improvement. Etiology most likely complicated H influenza bacteremia +/- pneumonia +/- ? intraabdominal source. -blood cx negative -US legs No DVT -Abd US negative 2) H influenza bacteremia: likely from pneumonia. TTE neg 3) Complicated Bilateral pneumonia: etiology H influenza - should r/o empyema or abscess -CXR showed kimberlee pneumonia -Sputum 12/20 showed usual resp angelika -HIV neg -JERMAIN and ANCA negative -C3/C4 normal -CRP=7.1 -Strep pneumoniae not detected -Legionella not detected -tracheal aspirate - usual resp angelika -s/p 12 days cefepime and flagyl until 12/31 -s/p 7 days zyvox until 12/31 -CT chest 01/01 Extensive Bilateral mixed airspace and interstitial infiltrates c/w pneumonia or edema. 4) Acute respiratory failure: re-intubated 5) Thrombocytopenia : from sepsis, resolved 6) Elevated LFTs: resolved, etio. ?sepsis, ETOH. Viral hepatitis all negative. 7) DM: uncontrolled Plan: -Monitor temperature. -Monitor WBC. -Monitor off antibiotics at this time. -If fever or worsening leukocytosis will re-start antibiotics. -consider trach. -d/w BLIND AIDE. Carlene Mulligan MD Infectious Diseases Specialist [facility] C [phone] Subjective Date of service: 01/02/18 Principal diagnosis: ARDS Interval history: Remains sedated, intubated. Less agitated. Afebrile. Microbiology: Blood cultures: 12/12 H influenza 1 of 4 bottles 12/15 neg 12/17 neg 12/23 neg 12/26 neg 12/30 ngtd Respiratory cultures: 12/13 - usual resp angelika 12/20 tracheal asp - usual resp angelika Current Antimicrobials: None Previous Antimicrobials: Zosyn Levaquin 12/13 Clindamycin 12/17 vanco 12/17-12/25 zyvox 11/27-12/31 cefepime 12/20-12/31 flagyl 12/20-12/31 Objective - Exam Narrative Exam: Narrative Exam: General appearance: sedated on the vent. Opens eyes, Squezees hands, moves toes. Eyes: anicteric sclerae, moist conjunctivae; PERRLA HENT: Atraumatic; oropharynx +ETT, NG tube. Neck: Trachea midline; supple, no thyromegaly or lymphadenopathy Lungs: kimberlee rhonchi CV: S1,S2. Abdomen: Soft, distended tense. Rectal tube with liquid stools. : awad catheter Extremities: legs edema Skin: no rash Psych: alert. Neuro: alert moving all extremities Lines: right PICC 12/20 - Constitutional Vitals: Vital Signs Temp Pulse Resp BP Pulse Ox 98.5 F 90 24 113/72 94 01/02/18 08:00 01/02/18 12:00 01/02/18 12:00 01/02/18 12:00 01/02/18 12:00 Temperature -Last 24 Hours Temperature 98.5 F Temperature 98.6 F Temperature 98.2 F Temperature 99 F Temperature 99.6 F - Labs CBC & Chem 7: 01/02/18 04:10 01/02/18 04:10 Labs: Abnormal lab results 01/01/18 01/01/18 01/01/18 Range/Units 10:10 12:38 17:27 WBC (4.5-11.0) K/mm3 RBC (3.65-5.03) M/mm3 Hgb (11.8-15.2) gm/dl Hct (35.5-45.6) % MCV (84-94) fl MCH (28-32) pg Eos % (Auto) (0.0-4.3) % [place] # (0.0-0.8) K/mm3 Eos # (0.0-0.4) K/mm3 Seg Neutrophils # (1.8-7.7) K/mm3 Chloride (98-107) mmol/L Creatinine (0.8-1.5) mg/dL POC Glucose 155 H 179 H 152 H (70-105) Calcium (8.4-10.2) mg/dL Total Protein (6.3-8.2) g/dL Albumin (3.9-5) g/dL 01/01/18 01/02/18 01/02/18 Range/Units 21:36 01:42 04:10 WBC 12.1 H (4.5-11.0) K/mm3 RBC 2.29 L (3.65-5.03) M/mm3 Hgb 7.5 L (11.8-15.2) gm/dl Hct 22.7 L (35.5-45.6) % MCV 99 H (84-94) fl MCH 33 H (28-32) pg Eos % (Auto) 5.5 H (0.0-4.3) % Hitchcock # 0.9 H (0.0-0.8) K/mm3 Eos # 0.7 H (0.0-0.4) K/mm3 Seg Neutrophils # 8.3 H (1.8-7.7) K/mm3 Chloride (98-107) mmol/L Creatinine (0.8-1.5) mg/dL POC Glucose 118 H 117 H (70-105) Calcium (8.4-10.2) mg/dL Total Protein (6.3-8.2) g/dL Albumin (3.9-5) g/dL 01/02/18 01/02/18 Range/Units 04:10 04:57 WBC (4.5-11.0) K/mm3 RBC (3.65-5.03) M/mm3 Hgb (11.8-15.2) gm/dl Hct (35.5-45.6) % MCV (84-94) fl MCH (28-32) pg Eos % (Auto) (0.0-4.3) % Hitchcock # (0.0-0.8) K/mm3 Eos # (0.0-0.4) K/mm3 Seg Neutrophils # (1.8-7.7) K/mm3 Chloride 97.0 L (98-107) mmol/L Creatinine 0.4 L (0.8-1.5) mg/dL POC Glucose 107 H (70-105) Calcium 8.1 L (8.4-10.2) mg/dL Total Protein 6.0 L (6.3-8.2) g/dL Albumin 2.5 L (3.9-5) g/dL
[2018-01-02] MEDS: SUBLIMAZE IV PRN ×2 (13:30→22:45)
[2018-01-02] MEDS: SODIUM CHLORIDE FLUSH SYRINGE 10 ML IV SCH ×2 (15:25→22:57)
[2018-01-03] MEDS: DUONEB *Not for PRN Use IH SCH ×4 (01:37→19:26)
[2018-01-03] MEDS: LOPRESSOR IV SCH ×2 (02:14→17:02)
[2018-01-03] MEDS: HumaLOG SUB-Q SCH ×5 (04:18→21:58)
[2018-01-03] MEDS: LIBRIUM PO SCH ×2 (05:15→15:27)
[2018-01-03] MEDS: HEPARIN SUB-Q SCH ×3 (05:15→21:57)
[2018-01-03 05:28] LABS: ABG Base Excess 6.3 mmol/L (-2.0-3.0); ABG HCO3 31.4 mmol/L (20.0-26.0); ABG Methemoglobin 0.4 % (0.0-1.5); ABG Oxygen Saturation 96.4 % (95.0-99.0); ABG PCO2 47.6 mm Hg; ABG PH 7.437 pH Units (7.350-7.450); ABG PO2 79.5 mm Hg (80.0-90.0)
--- NOTE | 2018-01-03 09:11 | Progress Note ---
Assessment and Plan Assessment: 1) Severe Sepsis: fever and leukocytosis better, very slow improvement. Etiology most likely complicated H influenza bacteremia +/- pneumonia +/- ? intraabdominal source. -blood cx negative -US legs No DVT -Abd US negative 2) H influenza bacteremia: likely from pneumonia. TTE neg 3) Complicated Bilateral pneumonia: etiology H influenza - should r/o empyema or abscess -CXR showed kimberlee pneumonia -Sputum 12/20 showed usual resp angelika -HIV neg -JERMAIN and ANCA negative -C3/C4 normal -CRP=7.1 -Strep pneumoniae not detected -Legionella not detected -tracheal aspirate - usual resp angelika -s/p 12 days cefepime and flagyl until 12/31 -s/p 7 days zyvox until 12/31 -CT chest 01/01 Extensive Bilateral mixed airspace and interstitial infiltrates c/w pneumonia or edema. 4) Acute respiratory failure: re-intubated 5) Thrombocytopenia : from sepsis, resolved 6) Elevated LFTs: resolved, etio. ?sepsis, ETOH. Viral hepatitis all negative. 7) DM: uncontrolled Plan: -Monitor temperature. -Monitor WBC. -Monitor off antibiotics at this time. -If fever or worsening leukocytosis will re-start antibiotics. -d/w DIRECTOR BEH[employer]IORAL HEALTH. Carlene Mulligan MD Infectious Diseases Specialist [facility] [phone] Subjective Date of service: 01/03/18 Principal diagnosis: ARDS Interval history: Pt is afebrile. Off sedation, calmer. Following commands. Wants restrains off. Undergoing weaning trial. Microbiology: Blood cultures: 12/12 H influenza 1 of 4 bottles 12/15 neg 12/17 neg 12/23 neg 12/26 neg 12/30 ngtd Respiratory cultures: 12/13 - usual resp angelika 12/20 tracheal asp - usual resp angelika Current Antimicrobials: None Previous Antimicrobials: Zosyn Levaquin 12/13 Clindamycin 12/17 vanco 12/17-12/25 zyvox 11/27-12/31 cefepime 12/20-12/31 flagyl 12/20-12/31 Objective - Exam Narrative Exam: Narrative Exam: General appearance: Pt in NAD, on the vent. Awake, following commands, trying to communicate. Eyes: anicteric sclerae, moist conjunctivae; PERRLA HENT: Atraumatic; oropharynx +ETT, NG tube. Neck: Trachea midline; supple, no thyromegaly or lymphadenopathy Lungs: Clear. CV: S1,S2. Abdomen: Soft, NT. Rectal tube with liquid stools. : awad catheter. Extremities: legs edema. Skin: no rash. Psych: alert. Neuro: alert, moving all extremities. Lines: right PICC 12/20. - Constitutional Vitals: Vital Signs Temp Pulse Resp BP Pulse Ox 98.4 F 89 29 H 103/67 97 01/03/18 04:00 01/03/18 06:00 01/03/18 06:00 01/03/18 06:00 01/03/18 06:00 Temperature -Last 24 Hours Temperature 98.4 F Temperature 99.4 F Temperature 98.5 F Temperature 98.8 F Temperature 98.6 F - Labs CBC & Chem 7: 01/02/18 04:10 01/02/18 04:10 Labs: Abnormal lab results 01/01/18 01/02/18 01/02/18 Range/Units 21:36 13:42 17:33 ABG pO2 (80.0-90.0) mm Hg ABG HCO3 (20.0-26.0) mmol/L ABG Base Excess (-2.0-3.0) mmol/L ABG Hemoglobin (14.0-18.0) gm/dl Oxyhemoglobin (95.0-99.0) % POC Glucose 118 H 133 H 146 H (70-105) 01/02/18 01/03/18 01/03/18 Range/Units 22:11 02:18 04:56 ABG pO2 79.5 L (80.0-90.0) mm Hg ABG HCO3 31.4 H (20.0-26.0) mmol/L ABG Base Excess 6.3 H (-2.0-3.0) mmol/L ABG Hemoglobin 10.4 L (14.0-18.0) gm/dl Oxyhemoglobin 94.2 L (95.0-99.0) % POC Glucose 171 H 162 H (70-105) 01/03/18 Range/Units 05:21 ABG pO2 (80.0-90.0) mm Hg ABG HCO3 (20.0-26.0) mmol/L ABG Base Excess (-2.0-3.0) mmol/L ABG Hemoglobin (14.0-18.0) gm/dl Oxyhemoglobin (95.0-99.0) % POC Glucose 163 H (70-105)
--- NOTE | 2018-01-03 12:04 | Progress Note ---
Assessment and Plan Acute hypoxemic respiratory failure Pneumonia. No fever. Off antibiotics at this point. See ID comments ARDS. Improved but still with impairment. CT showed pulmonary infiltrates and unable to wean further Severe sepsis. Off antibiotics Mixed lactic, respiratory anion gap acidosis Thrombocytopenia. Sepsis related versus history of alcohol use Diabetes mellitus Abdominal distention. Cause unknown Obesity Recommendations Continue current ventilatory support Sedate as necessary for comfort We need to be weaned on higher presents for differential- 14-12/5 cm H2O If no further improvement, patient needs tracheotomy. No family available for case discussion. Critically ill the the moment. Reviewed with staff and RT. Subjective Date of service: 01/03/18 Principal diagnosis: ARDS Interval history: Some shortness of breath this morning. Was not able to tolerate spontaneous breathing trial per staff. Still needed sedation remained calm and comfortable Objective Vital Signs - 12hr 01/03/18 01/03/18 01/03/18 00:15 00:28 00:30 Temperature Pulse Rate 97 H 106 H 106 H Pulse Rate [ Anterior Bilateral Throughout] Pulse Rate [ From Monitor] Respiratory 25 H 33 H Rate Respiratory Rate [Anterior Bilateral Throughout] Blood Pressure 112/70 118/21 123/74 O2 Sat by Pulse 96 97 95 Oximetry 01/03/18 01/03/18 01/03/18 00:45 01:00 01:15 Temperature Pulse Rate 106 H 104 H 100 H Pulse Rate [ Anterior Bilateral Throughout] Pulse Rate [ From Monitor] Respiratory 30 H 25 H 21 Rate Respiratory Rate [Anterior Bilateral Throughout] Blood Pressure 118/71 111/65 117/65 O2 Sat by Pulse 97 98 98 Oximetry 01/03/18 01/03/18 01/03/18 01:30 01:37 01:45 Temperature Pulse Rate 99 H 95 H Pulse Rate [ 101 H Anterior Bilateral Throughout] Pulse Rate [ From Monitor] Respiratory 24 18 Rate Respiratory 25 H Rate [Anterior Bilateral Throughout] Blood Pressure 114/65 100/59 O2 Sat by Pulse 98 100 Oximetry 01/03/18 01/03/18 01/03/18 01:47 02:00 02:15 Temperature Pulse Rate 108 H 107 H Pulse Rate [ 104 H Anterior Bilateral Throughout] Pulse Rate [ 96 H From Monitor] Respiratory 23 40 H Rate Respiratory 37 H Rate [Anterior Bilateral Throughout] Blood Pressure 126/77 125/70 O2 Sat by Pulse 97 95 Oximetry 01/03/18 01/03/18 01/03/18 02:30 02:46 03:00 Temperature Pulse Rate 106 H 104 H 103 H Pulse Rate [ Anterior Bilateral Throughout] Pulse Rate [ From Monitor] Respiratory 39 H 35 H 25 H Rate Respiratory Rate [Anterior Bilateral Throughout] Blood Pressure 118/74 125/70 125/70 O2 Sat by Pulse 94 96 96 Oximetry 01/03/18 01/03/18 01/03/18 03:15 03:30 03:45 Temperature Pulse Rate 99 H 101 H 93 H Pulse Rate [ Anterior Bilateral Throughout] Pulse Rate [ From Monitor] Respiratory 36 H 37 H 33 H Rate Respiratory Rate [Anterior Bilateral Throughout] Blood Pressure 110/68 114/71 113/69 O2 Sat by Pulse 98 97 99 Oximetry 01/03/18 01/03/18 01/03/18 04:00 04:15 04:30 Temperature 98.4 F Pulse Rate 91 H 91 H 91 H Pulse Rate [ Anterior Bilateral Throughout] Pulse Rate [ 96 H From Monitor] Respiratory 32 H 31 H 31 H Rate Respiratory Rate [Anterior Bilateral Throughout] Blood Pressure 110/69 107/65 102/65 O2 Sat by Pulse 98 98 98 Oximetry 01/03/18 01/03/18 01/03/18 04:45 04:56 05:00 Temperature Pulse Rate 89 89 89 Pulse Rate [ Anterior Bilateral Throughout] Pulse Rate [ From Monitor] Respiratory 30 H 31 H Rate Respiratory Rate [Anterior Bilateral Throughout] Blood Pressure 104/66 104/66 104/66 O2 Sat by Pulse 97 98 97 Oximetry 01/03/18 01/03/18 01/03/18 05:15 05:30 05:45 Temperature Pulse Rate 88 87 89 Pulse Rate [ Anterior Bilateral Throughout] Pulse Rate [ From Monitor] Respiratory 30 H 28 H 30 H Rate Respiratory Rate [Anterior Bilateral Throughout] Blood Pressure 108/68 106/68 105/68 O2 Sat by Pulse 96 97 97 Oximetry 01/03/18 01/03/18 01/03/18 06:00 08:00 09:21 Temperature Pulse Rate 89 99 H Pulse Rate [ 96 H 95 H Anterior Bilateral Throughout] Pulse Rate [ From Monitor] Respiratory 29 H Rate Respiratory 18 19 Rate [Anterior Bilateral Throughout] Blood Pressure 103/67 111/62 O2 Sat by Pulse 97 94 Oximetry Constitutional: no acute distress, asleep Eyes: non-icteric ENT: oropharynx moist, other (ETT at 24. ) Neck: no JVD Effort: normal Ascultation: Bilateral: clear, diminished breath sounds, wheezes (mild) Cardiovascular: regular rate and rhythm, other (tachycardic) Gastrointestinal: hypoactive bowel sounds, non-tender, other Integumentary: normal Extremities: no cyanosis, no ischemia or petechiae Neurologic: non-focal exam, pupils equal and round, CN II-XII normal Psychiatric: other (not able to assess) CBC and BMP: 01/02/18 04:10 01/02/18 04:10 ABG, PT/INR, D-dimer: ABG POC ABG pH 7.503 (7.35-7.45) H 12/25/17 03:38 ABG pH 7.437 pH Units (7.350-7.450) 01/03/18 04:56 POC ABG pCO2 35.8 (35-45) 12/25/17 03:38 ABG pCO2 47.6 mm Hg 01/03/18 04:56 POC ABG pO2 66 (80-105) L 12/25/17 03:38 ABG pO2 79.5 mm Hg (80.0-90.0) L 01/03/18 04:56 POC ABG HCO3 28.1 12/25/17 03:38 POC ABG Total CO2 29 12/25/17 03:38 POC ABG O2 Sat 95 12/25/17 03:38 ABG O2 Saturation 96.4 % (95.0-99.0) 01/03/18 04:56 PT/INR, D-dimer PT 14.9 Sec. (12.2-14.9) 12/15/17 04:05 INR 1.11 (0.87-1.13) 12/15/17 04:05 Abnormal lab findings: Abnormal Labs 12/12/17 12/12/17 12/12/17 18:57 19:02 19:02 WBC RBC Hgb Hct MCV 96 H MCH 34 H MCHC 35 H RDW Plt Count 46 L Lymph % (Auto) Eos % (Auto) Becker # Eos # Baso # Seg Neutrophils % Seg Neuts % (Manual) 77.0 H Lymphocytes % (Manual) 13.0 L Monocytes % (Manual) Nucleated RBC % Seg Neutrophils # Seg Neutrophils # Man Lymphocytes # (Manual) 0.9 L Monocytes # (Manual) Eosinophils # (Manual) APTT POC ABG pH ABG pH POC ABG pCO2 POC ABG pO2 ABG pO2 ABG HCO3 ABG O2 Saturation ABG Base Excess ABG Hemoglobin VBG pH Oxyhemoglobin Sodium Potassium Chloride Carbon Dioxide BUN Creatinine Glucose POC Glucose 321 H Lactic Acid 4.00 H* Calcium Phosphorus Total Bilirubin AST ALT C-Reactive Protein Total Protein Albumin Triglycerides Amylase Lipase Urine WBC (Auto) Vancomycin Trough Crossmatch 12/12/17 12/12/17 12/12/17 19:02 19:18 20:55 WBC RBC Hgb Hct MCV MCH MCHC RDW Plt Count Lymph % (Auto) Eos % (Auto) Becker # Eos # Baso # Seg Neutrophils % Seg Neuts % (Manual) Lymphocytes % (Manual) Monocytes % (Manual) Nucleated RBC % Seg Neutrophils # Seg Neutrophils # Man Lymphocytes # (Manual) Monocytes # (Manual) Eosinophils # (Manual) APTT POC ABG pH ABG pH POC ABG pCO2 POC ABG pO2 ABG pO2 ABG HCO3 ABG O2 Saturation ABG Base Excess ABG Hemoglobin VBG pH 7.472 H Oxyhemoglobin Sodium 124 L Potassium Chloride 80.0 L Carbon Dioxide 20 L BUN Creatinine Glucose 382 H POC Glucose 283 H Lactic Acid Calcium 8.1 L Phosphorus Total Bilirubin 4.60 H AST 93 H ALT 112 H C-Reactive Protein Total Protein Albumin 2.5 L Triglycerides Amylase Lipase Urine WBC (Auto) Vancomycin Trough Crossmatch 12/12/17 12/13/17 12/13/17 21:41 00:45 01:29 WBC RBC Hgb Hct MCV MCH MCHC RDW Plt Count Lymph % (Auto) Eos % (Auto) Becker # Eos # Baso # Seg Neutrophils % Seg Neuts % (Manual) Lymphocytes % (Manual) Monocytes % (Manual) Nucleated RBC % Seg Neutrophils # Seg Neutrophils # Man Lymphocytes # (Manual) Monocytes # (Manual) Eosinophils # (Manual) APTT POC ABG pH ABG pH POC ABG pCO2 POC ABG pO2 ABG pO2 ABG HCO3 ABG O2 Saturation ABG Base Excess ABG Hemoglobin VBG pH Oxyhemoglobin Sodium Potassium Chloride Carbon Dioxide BUN Creatinine Glucose POC Glucose Lactic Acid 4.20 H* 2.70 H* 3.30 H* Calcium Phosphorus Total Bilirubin AST ALT C-Reactive Protein Total Protein Albumin Triglycerides Amylase Lipase Urine WBC (Auto) Vancomycin Trough Crossmatch 12/13/17 12/13/17 12/13/17 02:19 03:44 05:58 WBC RBC Hgb Hct MCV 97 H MCH 34 H MCHC 35 H RDW Plt Count 41 L Lymph % (Auto) Eos % (Auto) Becker # Eos # Baso # Seg Neutrophils % Seg Neuts % (Manual) Lymphocytes % (Manual) 8.0 L Monocytes % (Manual) 8.0 H Nucleated RBC % Seg Neutrophils # Seg Neutrophils # Man Lymphocytes # (Manual) 0.6 L Monocytes # (Manual) Eosinophils # (Manual) APTT POC ABG pH 7.334 L ABG pH POC ABG pCO2 POC ABG pO2 43 L ABG pO2 ABG HCO3 ABG O2 Saturation ABG Base Excess ABG Hemoglobin VBG pH Oxyhemoglobin Sodium Potassium Chloride Carbon Dioxide BUN Creatinine Glucose POC Glucose Lactic Acid 2.60 H* Calcium Phosphorus Total Bilirubin AST ALT C-Reactive Protein Total Protein Albumin Triglycerides Amylase Lipase Urine WBC (Auto) Vancomycin Trough Crossmatch 12/13/17 12/13/17 12/13/17 05:58 05:58 05:58 WBC RBC Hgb Hct MCV MCH MCHC RDW Plt Count Lymph % (Auto) Eos % (Auto) Becker # Eos # Baso # Seg Neutrophils % Seg Neuts % (Manual) Lymphocytes % (Manual) Monocytes % (Manual) Nucleated RBC % Seg Neutrophils # Seg Neutrophils # Man Lymphocytes # (Manual) Monocytes # (Manual) Eosinophils # (Manual) APTT POC ABG pH ABG pH POC ABG pCO2 POC ABG pO2 ABG pO2 ABG HCO3 ABG O2 Saturation ABG Base Excess ABG Hemoglobin VBG pH Oxyhemoglobin Sodium 132 L D Potassium Chloride 90.0 L Carbon Dioxide 20 L BUN Creatinine Glucose 346 H POC Glucose 298 H Lactic Acid 4.50 H* Calcium 8.2 L Phosphorus Total Bilirubin AST ALT C-Reactive Protein Total Protein Albumin Triglycerides Amylase Lipase Urine WBC (Auto) Vancomycin Trough Crossmatch 12/13/17 12/13/17 12/13/17 06:27 09:42 11:47 WBC RBC Hgb Hct MCV MCH MCHC RDW Plt Count Lymph % (Auto) Eos % (Auto) Becker # Eos # Baso # Seg Neutrophils % Seg Neuts % (Manual) Lymphocytes % (Manual) Monocytes % (Manual) Nucleated RBC % Seg Neutrophils # Seg Neutrophils # Man Lymphocytes # (Manual) Monocytes # (Manual) Eosinophils # (Manual) APTT POC ABG pH 7.267 L 7.298 L ABG pH POC ABG pCO2 50.4 H 51.3 H POC ABG pO2 47 L 43 L ABG pO2 ABG HCO3 ABG O2 Saturation ABG Base Excess ABG Hemoglobin VBG pH Oxyhemoglobin Sodium Potassium Chloride Carbon Dioxide BUN Creatinine Glucose POC Glucose 376 H Lactic Acid Calcium Phosphorus Total Bilirubin AST ALT C-Reactive Protein Total Protein Albumin Triglycerides Amylase Lipase Urine WBC (Auto) Vancomycin Trough Crossmatch 12/13/17 12/13/17 12/13/17 12:03 13:47 13:47 WBC RBC Hgb Hct MCV MCH MCHC RDW Plt Count Lymph % (Auto) Eos % (Auto) Becker # Eos # Baso # Seg Neutrophils % Seg Neuts % (Manual) Lymphocytes % (Manual) Monocytes % (Manual) Nucleated RBC % Seg Neutrophils # Seg Neutrophils # Man Lymphocytes # (Manual) Monocytes # (Manual) Eosinophils # (Manual) APTT POC ABG pH 7.264 L ABG pH POC ABG pCO2 54.9 H POC ABG pO2 55 L ABG pO2 ABG HCO3 ABG O2 Saturation ABG Base Excess ABG Hemoglobin VBG pH Oxyhemoglobin Sodium Potassium Chloride Carbon Dioxide BUN Creatinine Glucose POC Glucose Lactic Acid 2.80 H* Calcium Phosphorus Total Bilirubin AST ALT C-Reactive Protein Total Protein Albumin Triglycerides Amylase 20 L Lipase 9 L Urine WBC (Auto) Vancomycin Trough Crossmatch 12/13/17 12/13/17 12/13/17 15:36 17:39 21:47 WBC RBC Hgb Hct MCV MCH MCHC RDW Plt Count Lymph % (Auto) Eos % (Auto) Becker # Eos # Baso # Seg Neutrophils % Seg Neuts % (Manual) Lymphocytes % (Manual) Monocytes % (Manual) Nucleated RBC % Seg Neutrophils # Seg Neutrophils # Man Lymphocytes # (Manual) Monocytes # (Manual) Eosinophils # (Manual) APTT POC ABG pH 7.229 L 7.225 L ABG pH POC ABG pCO2 60.9 H 66.3 H POC ABG pO2 42 L 41 L ABG pO2 ABG HCO3 ABG O2 Saturation ABG Base Excess ABG Hemoglobin VBG pH Oxyhemoglobin Sodium Potassium Chloride Carbon Dioxide BUN Creatinine Glucose POC Glucose 289 H Lactic Acid Calcium Phosphorus Total Bilirubin AST ALT C-Reactive Protein Total Protein Albumin Triglycerides Amylase Lipase Urine WBC (Auto) Vancomycin Trough Crossmatch 12/13/17 12/14/17 12/14/17 22:19 02:03 05:16 WBC RBC Hgb Hct MCV MCH MCHC RDW Plt Count Lymph % (Auto) Eos % (Auto) Becker # Eos # Baso # Seg Neutrophils % Seg Neuts % (Manual) Lymphocytes % (Manual) Monocytes % (Manual) Nucleated RBC % Seg Neutrophils # Seg Neutrophils # Man Lymphocytes # (Manual) Monocytes # (Manual) Eosinophils # (Manual) APTT POC ABG pH 7.247 L ABG pH POC ABG pCO2 61.2 H POC ABG pO2 53 L ABG pO2 ABG HCO3 ABG O2 Saturation ABG Base Excess ABG Hemoglobin VBG pH Oxyhemoglobin Sodium Potassium Chloride Carbon Dioxide BUN Creatinine Glucose POC Glucose 274 H 295 H Lactic Acid Calcium Phosphorus Total Bilirubin AST ALT C-Reactive Protein Total Protein Albumin Triglycerides Amylase Lipase Urine WBC (Auto) Vancomycin Trough Crossmatch 12/14/17 12/14/17 12/14/17 05:32 12:04 16:22 WBC RBC Hgb Hct MCV MCH MCHC RDW Plt Count Lymph % (Auto) Eos % (Auto) Becker # Eos # Baso # Seg Neutrophils % Seg Neuts % (Manual) Lymphocytes % (Manual) Monocytes % (Manual) Nucleated RBC % Seg Neutrophils # Seg Neutrophils # Man Lymphocytes # (Manual) Monocytes # (Manual) Eosinophils # (Manual) APTT POC ABG pH ABG pH POC ABG pCO2 POC ABG pO2 ABG pO2 ABG HCO3 ABG O2 Saturation ABG Base Excess ABG Hemoglobin VBG pH Oxyhemoglobin Sodium Potassium Chloride Carbon Dioxide BUN Creatinine Glucose POC Glucose 230 H 241 H 231 H Lactic Acid Calcium Phosphorus Total Bilirubin AST ALT C-Reactive Protein Total Protein Albumin Triglycerides Amylase Lipase Urine WBC (Auto) Vancomycin Trough Crossmatch 12/14/17 12/15/17 12/15/17 21:29 02:29 03:25 WBC RBC Hgb Hct MCV MCH MCHC RDW Plt Count Lymph % (Auto) Eos % (Auto) Becker # Eos # Baso # Seg Neutrophils % Seg Neuts % (Manual) Lymphocytes % (Manual) Monocytes % (Manual) Nucleated RBC % Seg Neutrophils # Seg Neutrophils # Man Lymphocytes # (Manual) Monocytes # (Manual) Eosinophils # (Manual) APTT POC ABG pH 7.330 L ABG pH POC ABG pCO2 55.3 H POC ABG pO2 59 L ABG pO2 ABG HCO3 ABG O2 Saturation ABG Base Excess ABG Hemoglobin VBG pH Oxyhemoglobin Sodium Potassium Chloride Carbon Dioxide BUN Creatinine Glucose POC Glucose 258 H 246 H Lactic Acid Calcium Phosphorus Total Bilirubin AST ALT C-Reactive Protein Total Protein Albumin Triglycerides Amylase Lipase Urine WBC (Auto) Vancomycin Trough Crossmatch 12/15/17 12/15/17 12/15/17 04:05 04:05 04:05 WBC 15.0 H RBC 3.40 L Hgb 11.3 L D Hct 33.8 L D MCV 100 H MCH 33 H MCHC RDW Plt Count 48 L Lymph % (Auto) Eos % (Auto) Becker # Eos # Baso # Seg Neutrophils % Seg Neuts % (Manual) Lymphocytes % (Manual) 3.0 L Monocytes % (Manual) Nucleated RBC % 2.0 H Seg Neutrophils # Seg Neutrophils # Man Lymphocytes # (Manual) 0.5 L Monocytes # (Manual) 0.9 H Eosinophils # (Manual) APTT 20.9 L POC ABG pH ABG pH POC ABG pCO2 POC ABG pO2 ABG pO2 ABG HCO3 ABG O2 Saturation ABG Base Excess ABG Hemoglobin VBG pH Oxyhemoglobin Sodium Potassium Chloride Carbon Dioxide BUN 27 H Creatinine Glucose 258 H POC Glucose Lactic Acid Calcium 8.1 L Phosphorus Total Bilirubin AST ALT C-Reactive Protein Total Protein Albumin Triglycerides Amylase Lipase Urine WBC (Auto) Vancomycin Trough Crossmatch 12/15/17 12/15/17 12/15/17 05:32 11:17 14:59 WBC RBC Hgb Hct MCV MCH MCHC RDW Plt Count Lymph % (Auto) Eos % (Auto) Becker # Eos # Baso # Seg Neutrophils % Seg Neuts % (Manual) Lymphocytes % (Manual) Monocytes % (Manual) Nucleated RBC % Seg Neutrophils # Seg Neutrophils # Man Lymphocytes # (Manual) Monocytes # (Manual) Eosinophils # (Manual) APTT POC ABG pH ABG pH POC ABG pCO2 POC ABG pO2 ABG pO2 ABG HCO3 ABG O2 Saturation ABG Base Excess ABG Hemoglobin VBG pH Oxyhemoglobin Sodium Potassium Chloride Carbon Dioxide BUN Creatinine Glucose POC Glucose 247 H 268 H 233 H Lactic Acid Calcium Phosphorus Total Bilirubin AST ALT C-Reactive Protein Total Protein Albumin Triglycerides Amylase Lipase Urine WBC (Auto) Vancomycin Trough Crossmatch 12/15/17 12/15/17 12/15/17 17:00 18:59 21:37 WBC RBC Hgb Hct MCV MCH MCHC RDW Plt Count Lymph % (Auto) Eos % (Auto) Becker # Eos # Baso # Seg Neutrophils % Seg Neuts % (Manual) Lymphocytes % (Manual) Monocytes % (Manual) Nucleated RBC % Seg Neutrophils # Seg Neutrophils # Man Lymphocytes # (Manual) Monocytes # (Manual) Eosinophils # (Manual) APTT POC ABG pH ABG pH POC ABG pCO2 POC ABG pO2 ABG pO2 ABG HCO3 ABG O2 Saturation ABG Base Excess ABG Hemoglobin VBG pH Oxyhemoglobin Sodium Potassium Chloride Carbon Dioxide BUN Creatinine Glucose POC Glucose 195 H 208 H Lactic Acid Calcium Phosphorus Total Bilirubin AST ALT C-Reactive Protein Total Protein Albumin Triglycerides Amylase Lipase Urine WBC (Auto) 38.0 H Vancomycin Trough Crossmatch 12/16/17 12/16/17 12/16/17 03:17 03:33 04:18 WBC 16.4 H RBC 3.50 L Hgb 11.3 L Hct 35.4 L MCV 101 H MCH MCHC RDW Plt Count 54 L Lymph % (Auto) Eos % (Auto) Becker # Eos # Baso # Seg Neutrophils % Seg Neuts % (Manual) Lymphocytes % (Manual) Monocytes % (Manual) Nucleated RBC % Seg Neutrophils # Seg Neutrophils # Man Lymphocytes # (Manual) Monocytes # (Manual) Eosinophils # (Manual) APTT POC ABG pH ABG pH POC ABG pCO2 47.7 H POC ABG pO2 ABG pO2 ABG HCO3 ABG O2 Saturation ABG Base Excess ABG Hemoglobin VBG pH Oxyhemoglobin Sodium Potassium Chloride Carbon Dioxide BUN Creatinine Glucose POC Glucose 227 H Lactic Acid Calcium Phosphorus Total Bilirubin AST ALT C-Reactive Protein Total Protein Albumin Triglycerides Amylase Lipase Urine WBC (Auto) Vancomycin Trough Crossmatch 12/16/17 12/16/17 12/16/17 04:18 05:08 10:01 WBC RBC Hgb Hct MCV MCH MCHC RDW Plt Count Lymph % (Auto) Eos % (Auto) Becker # Eos # Baso # Seg Neutrophils % Seg Neuts % (Manual) Lymphocytes % (Manual) Monocytes % (Manual) Nucleated RBC % Seg Neutrophils # Seg Neutrophils # Man Lymphocytes # (Manual) Monocytes # (Manual) Eosinophils # (Manual) APTT POC ABG pH ABG pH POC ABG pCO2 POC ABG pO2 ABG pO2 ABG HCO3 ABG O2 Saturation ABG Base Excess ABG Hemoglobin VBG pH Oxyhemoglobin Sodium 147 H Potassium Chloride 107.4 H Carbon Dioxide BUN 28 H Creatinine Glucose 240 H POC Glucose 227 H 190 H Lactic Acid Calcium 8.3 L Phosphorus Total Bilirubin AST ALT C-Reactive Protein Total Protein Albumin Triglycerides Amylase Lipase Urine WBC (Auto) Vancomycin Trough Crossmatch 12/16/17 12/16/17 12/16/17 14:15 17:51 21:14 WBC RBC Hgb Hct MCV MCH MCHC RDW Plt Count Lymph % (Auto) Eos % (Auto) Becker # Eos # Baso # Seg Neutrophils % Seg Neuts % (Manual) Lymphocytes % (Manual) Monocytes % (Manual) Nucleated RBC % Seg Neutrophils # Seg Neutrophils # Man Lymphocytes # (Manual) Monocytes # (Manual) Eosinophils # (Manual) APTT POC ABG pH ABG pH POC ABG pCO2 POC ABG pO2 ABG pO2 ABG HCO3 ABG O2 Saturation ABG Base Excess ABG Hemoglobin VBG pH Oxyhemoglobin Sodium Potassium Chloride Carbon Dioxide BUN Creatinine Glucose POC Glucose 279 H 272 H 260 H Lactic Acid Calcium Phosphorus Total Bilirubin AST ALT C-Reactive Protein Total Protein Albumin Triglycerides Amylase Lipase Urine WBC (Auto) Vancomycin Trough Crossmatch 12/17/17 12/17/17 12/17/17 02:41 04:28 04:28 WBC 19.1 H RBC 3.50 L Hgb 11.4 L Hct 35.3 L MCV 101 H MCH 33 H MCHC RDW Plt Count 65 L Lymph % (Auto) Eos % (Auto) Becker # Eos # Baso # Seg Neutrophils % Seg Neuts % (Manual) Lymphocytes % (Manual) Monocytes % (Manual) Nucleated RBC % Seg Neutrophils # Seg Neutrophils # Man Lymphocytes # (Manual) Monocytes # (Manual) Eosinophils # (Manual) APTT POC ABG pH ABG pH POC ABG pCO2 POC ABG pO2 ABG pO2 ABG HCO3 ABG O2 Saturation ABG Base Excess ABG Hemoglobin VBG pH Oxyhemoglobin Sodium 153 H Potassium Chloride 111.2 H Carbon Dioxide 31 H BUN 28 H Creatinine Glucose 248 H POC Glucose 300 H Lactic Acid Calcium Phosphorus Total Bilirubin AST ALT C-Reactive Protein Total Protein Albumin Triglycerides Amylase Lipase Urine WBC (Auto) Vancomycin Trough Crossmatch 12/17/17 12/17/17 12/17/17 05:15 05:38 10:16 WBC RBC Hgb Hct MCV MCH MCHC RDW Plt Count Lymph % (Auto) Eos % (Auto) Becker # Eos # Baso # Seg Neutrophils % Seg Neuts % (Manual) Lymphocytes % (Manual) Monocytes % (Manual) Nucleated RBC % Seg Neutrophils # Seg Neutrophils # Man Lymphocytes # (Manual) Monocytes # (Manual) Eosinophils # (Manual) APTT POC ABG pH ABG pH POC ABG pCO2 50.3 H POC ABG pO2 120 H ABG pO2 ABG HCO3 ABG O2 Saturation ABG Base Excess ABG Hemoglobin VBG pH Oxyhemoglobin Sodium Potassium Chloride Carbon Dioxide BUN Creatinine Glucose POC Glucose 231 H 196 H Lactic Acid Calcium Phosphorus Total Bilirubin AST ALT C-Reactive Protein Total Protein Albumin Triglycerides Amylase Lipase Urine WBC (Auto) Vancomycin Trough Crossmatch 12/17/17 12/17/17 12/17/17 14:22 18:14 21:35 WBC RBC Hgb Hct MCV MCH MCHC RDW Plt Count Lymph % (Auto) Eos % (Auto) Becker # Eos # Baso # Seg Neutrophils % Seg Neuts % (Manual) Lymphocytes % (Manual) Monocytes % (Manual) Nucleated RBC % Seg Neutrophils # Seg Neutrophils # Man Lymphocytes # (Manual) Monocytes # (Manual) Eosinophils # (Manual) APTT POC ABG pH ABG pH POC ABG pCO2 POC ABG pO2 ABG pO2 ABG HCO3 ABG O2 Saturation ABG Base Excess ABG Hemoglobin VBG pH Oxyhemoglobin Sodium Potassium Chloride Carbon Dioxide BUN Creatinine Glucose POC Glucose 234 H 215 H 159 H Lactic Acid Calcium Phosphorus Total Bilirubin AST ALT C-Reactive Protein Total Protein Albumin Triglycerides Amylase Lipase Urine WBC (Auto) Vancomycin Trough Crossmatch 12/18/17 12/18/17 12/18/17 00:53 02:58 06:03 WBC RBC Hgb Hct MCV MCH MCHC RDW Plt Count Lymph % (Auto) Eos % (Auto) Becker # Eos # Baso # Seg Neutrophils % Seg Neuts % (Manual) Lymphocytes % (Manual) Monocytes % (Manual) Nucleated RBC % Seg Neutrophils # Seg Neutrophils # Man Lymphocytes # (Manual) Monocytes # (Manual) Eosinophils # (Manual) APTT POC ABG pH ABG pH POC ABG pCO2 56.4 H POC ABG pO2 46 L ABG pO2 ABG HCO3 ABG O2 Saturation ABG Base Excess ABG Hemoglobin VBG pH Oxyhemoglobin Sodium Potassium Chloride Carbon Dioxide BUN Creatinine Glucose POC Glucose 176 H 143 H Lactic Acid Calcium Phosphorus Total Bilirubin AST ALT C-Reactive Protein Total Protein Albumin Triglycerides Amylase Lipase Urine WBC (Auto) Vancomycin Trough Crossmatch 12/18/17 12/18/17 12/18/17 07:59 09:20 09:20 WBC 27.4 H RBC 3.57 L Hgb 11.4 L Hct MCV 101 H MCH MCHC RDW Plt Count 64 L Lymph % (Auto) Eos % (Auto) Becker # Eos # Baso # Seg Neutrophils % Seg Neuts % (Manual) Lymphocytes % (Manual) Monocytes % (Manual) Nucleated RBC % Seg Neutrophils # Seg Neutrophils # Man Lymphocytes # (Manual) Monocytes # (Manual) Eosinophils # (Manual) APTT POC ABG pH ABG pH POC ABG pCO2 POC ABG pO2 ABG pO2 ABG HCO3 ABG O2 Saturation ABG Base Excess ABG Hemoglobin VBG pH Oxyhemoglobin Sodium 152 H Potassium Chloride 107.9 H Carbon Dioxide 34 H BUN 23 H Creatinine 0.7 L Glucose 181 H POC Glucose 197 H Lactic Acid Calcium Phosphorus Total Bilirubin AST ALT C-Reactive Protein Total Protein Albumin Triglycerides Amylase Lipase Urine WBC (Auto) Vancomycin Trough Crossmatch 12/18/17 12/18/17 12/18/17 10:22 15:03 18:15 WBC RBC Hgb Hct MCV MCH MCHC RDW Plt Count Lymph % (Auto) Eos % (Auto) Becker # Eos # Baso # Seg Neutrophils % Seg Neuts % (Manual) Lymphocytes % (Manual) Monocytes % (Manual) Nucleated RBC % Seg Neutrophils # Seg Neutrophils # Man Lymphocytes # (Manual) Monocytes # (Manual) Eosinophils # (Manual) APTT POC ABG pH ABG pH POC ABG pCO2 POC ABG pO2 ABG pO2 ABG HCO3 ABG O2 Saturation ABG Base Excess ABG Hemoglobin VBG pH Oxyhemoglobin Sodium Potassium Chloride Carbon Dioxide BUN Creatinine Glucose POC Glucose 195 H 225 H 238 H Lactic Acid Calcium Phosphorus Total Bilirubin AST ALT C-Reactive Protein Total Protein Albumin Triglycerides Amylase Lipase Urine WBC (Auto) Vancomycin Trough Crossmatch 12/18/17 12/18/17 12/19/17 18:29 21:53 00:18 WBC RBC Hgb Hct MCV MCH MCHC RDW Plt Count Lymph % (Auto) Eos % (Auto) Becker # Eos # Baso # Seg Neutrophils % Seg Neuts % (Manual) Lymphocytes % (Manual) Monocytes % (Manual) Nucleated RBC % Seg Neutrophils # Seg Neutrophils # Man Lymphocytes # (Manual) Monocytes # (Manual) Eosinophils # (Manual) APTT POC ABG pH 7.476 H ABG pH POC ABG pCO2 50.4 H POC ABG pO2 158 H ABG pO2 ABG HCO3 ABG O2 Saturation ABG Base Excess ABG Hemoglobin VBG pH Oxyhemoglobin Sodium Potassium Chloride Carbon Dioxide BUN Creatinine Glucose POC Glucose 231 H 263 H Lactic Acid Calcium Phosphorus Total Bilirubin AST ALT C-Reactive Protein Total Protein Albumin Triglycerides Amylase Lipase Urine WBC (Auto) Vancomycin Trough Crossmatch 12/19/17 12/19/17 12/19/17 02:09 04:07 04:07 WBC 25.9 H RBC 3.25 L Hgb 10.6 L Hct 32.8 L MCV 101 H MCH 33 H MCHC RDW Plt Count 67 L Lymph % (Auto) Eos % (Auto) Becker # Eos # Baso # Seg Neutrophils % Seg Neuts % (Manual) Lymphocytes % (Manual) 4.0 L Monocytes % (Manual) Nucleated RBC % Seg Neutrophils # Seg Neutrophils # Man 14.8 H Lymphocytes # (Manual) 1.0 L Monocytes # (Manual) Eosinophils # (Manual) APTT POC ABG pH ABG pH POC ABG pCO2 POC ABG pO2 ABG pO2 ABG HCO3 ABG O2 Saturation ABG Base Excess ABG Hemoglobin VBG pH Oxyhemoglobin Sodium 148 H Potassium Chloride Carbon Dioxide BUN 31 H Creatinine Glucose 314 H POC Glucose 300 H Lactic Acid Calcium 8.1 L Phosphorus Total Bilirubin AST ALT C-Reactive Protein Total Protein Albumin Triglycerides Amylase Lipase Urine WBC (Auto) Vancomycin Trough Crossmatch 12/19/17 12/19/17 12/19/17 05:15 05:41 07:57 WBC RBC Hgb Hct MCV MCH MCHC RDW Plt Count Lymph % (Auto) Eos % (Auto) Becker # Eos # Baso # Seg Neutrophils % Seg Neuts % (Manual) Lymphocytes % (Manual) Monocytes % (Manual) Nucleated RBC % Seg Neutrophils # Seg Neutrophils # Man Lymphocytes # (Manual) Monocytes # (Manual) Eosinophils # (Manual) APTT POC ABG pH 7.507 H ABG pH POC ABG pCO2 POC ABG pO2 ABG pO2 ABG HCO3 ABG O2 Saturation ABG Base Excess ABG Hemoglobin VBG pH Oxyhemoglobin Sodium Potassium Chloride Carbon Dioxide BUN Creatinine Glucose POC Glucose 331 H 307 H Lactic Acid Calcium Phosphorus Total Bilirubin AST ALT C-Reactive Protein Total Protein Albumin Triglycerides Amylase Lipase Urine WBC (Auto) Vancomycin Trough Crossmatch 12/19/17 12/19/1712/19/18 10:21 14:48 17:59 WBC RBC Hgb Hct MCV MCH MCHC RDW Plt Count Lymph % (Auto) Eos % (Auto) Becker # Eos # Baso # Seg Neutrophils % Seg Neuts % (Manual) Lymphocytes % (Manual) Monocytes % (Manual) Nucleated RBC % Seg Neutrophils # Seg Neutrophils # Man Lymphocytes # (Manual) Monocytes # (Manual) Eosinophils # (Manual) APTT POC ABG pH ABG pH POC ABG pCO2 POC ABG pO2 ABG pO2 ABG HCO3 ABG O2 Saturation ABG Base Excess ABG Hemoglobin VBG pH Oxyhemoglobin Sodium Potassium Chloride Carbon Dioxide BUN Creatinine Glucose POC Glucose 358 H 327 H 355 H Lactic Acid Calcium Phosphorus Total Bilirubin AST ALT C-Reactive Protein Total Protein Albumin Triglycerides Amylase Lipase Urine WBC (Auto) Vancomycin Trough Crossmatch 12/19/17 12/20/17 12/20/17 21:38 02:21 03:42 WBC RBC Hgb Hct MCV MCH MCHC RDW Plt Count Lymph % (Auto) Eos % (Auto) Becker # Eos # Baso # Seg Neutrophils % Seg Neuts % (Manual) Lymphocytes % (Manual) Monocytes % (Manual) Nucleated RBC % Seg Neutrophils # Seg Neutrophils # Man Lymphocytes # (Manual) Monocytes # (Manual) Eosinophils # (Manual) APTT POC ABG pH 7.494 H ABG pH POC ABG pCO2 POC ABG pO2 ABG pO2 ABG HCO3 ABG O2 Saturation ABG Base Excess ABG Hemoglobin VBG pH Oxyhemoglobin Sodium Potassium Chloride Carbon Dioxide BUN Creatinine Glucose POC Glucose 329 H 354 H Lactic Acid Calcium Phosphorus Total Bilirubin AST ALT C-Reactive Protein Total Protein Albumin Triglycerides Amylase Lipase Urine WBC (Auto) Vancomycin Trough Crossmatch 12/20/17 12/20/17 12/20/17 04:08 04:08 04:08 WBC 22.7 H RBC 3.26 L Hgb 10.6 L Hct 32.9 L MCV 101 H MCH 33 H MCHC RDW Plt Count 78 L Lymph % (Auto) Eos % (Auto) Becker # Eos # Baso # Seg Neutrophils % Seg Neuts % (Manual) 80.0 H Lymphocytes % (Manual) 6.0 L Monocytes % (Manual) Nucleated RBC % Seg Neutrophils # Seg Neutrophils # Man 18.2 H Lymphocytes # (Manual) Monocytes # (Manual) Eosinophils # (Manual) APTT POC ABG pH ABG pH POC ABG pCO2 POC ABG pO2 ABG pO2 ABG HCO3 ABG O2 Saturation ABG Base Excess ABG Hemoglobin VBG pH Oxyhemoglobin Sodium Potassium Chloride Carbon Dioxide 31 H BUN 30 H Creatinine 0.6 L Glucose 365 H POC Glucose Lactic Acid Calcium Phosphorus Total Bilirubin AST ALT C-Reactive Protein Total Protein Albumin Triglycerides 981 H Amylase Lipase Urine WBC (Auto) Vancomycin Trough Crossmatch 12/20/17 12/20/17 12/20/17 05:15 10:47 13:40 WBC RBC Hgb Hct MCV MCH MCHC RDW Plt Count Lymph % (Auto) Eos % (Auto) Becker # Eos # Baso # Seg Neutrophils % Seg Neuts % (Manual) Lymphocytes % (Manual) Monocytes % (Manual) Nucleated RBC % Seg Neutrophils # Seg Neutrophils # Man Lymphocytes # (Manual) Monocytes # (Manual) Eosinophils # (Manual) APTT POC ABG pH ABG pH POC ABG pCO2 POC ABG pO2 ABG pO2 ABG HCO3 ABG O2 Saturation ABG Base Excess ABG Hemoglobin VBG pH Oxyhemoglobin Sodium Potassium Chloride Carbon Dioxide BUN Creatinine Glucose POC Glucose 342 H 330 H Lactic Acid Calcium Phosphorus Total Bilirubin AST ALT C-Reactive Protein 7.10 H Total Protein Albumin Triglycerides Amylase Lipase Urine WBC (Auto) Vancomycin Trough Crossmatch 12/20/17 12/20/17 12/20/17 13:40 14:52 16:55 WBC RBC Hgb Hct MCV MCH MCHC RDW Plt Count Lymph % (Auto) Eos % (Auto) Becker # Eos # Baso # Seg Neutrophils % Seg Neuts % (Manual) Lymphocytes % (Manual) Monocytes % (Manual) Nucleated RBC % Seg Neutrophils # Seg Neutrophils # Man Lymphocytes # (Manual) Monocytes # (Manual) Eosinophils # (Manual) APTT POC ABG pH 7.484 H ABG pH POC ABG pCO2 POC ABG pO2 ABG pO2 ABG HCO3 ABG O2 Saturation ABG Base Excess ABG Hemoglobin VBG pH Oxyhemoglobin Sodium Potassium Chloride Carbon Dioxide BUN Creatinine Glucose POC Glucose 293 H Lactic Acid Calcium Phosphorus Total Bilirubin AST ALT C-Reactive Protein Total Protein Albumin Triglycerides 1042 H Amylase Lipase Urine WBC (Auto) Vancomycin Trough Crossmatch 12/20/17 12/20/17 12/21/17 18:00 21:58 02:05 WBC RBC Hgb Hct MCV MCH MCHC RDW Plt Count Lymph % (Auto) Eos % (Auto) Becker # Eos # Baso # Seg Neutrophils % Seg Neuts % (Manual) Lymphocytes % (Manual) Monocytes % (Manual) Nucleated RBC % Seg Neutrophils # Seg Neutrophils # Man Lymphocytes # (Manual) Monocytes # (Manual) Eosinophils # (Manual) APTT POC ABG pH ABG pH POC ABG pCO2 POC ABG pO2 ABG pO2 ABG HCO3 ABG O2 Saturation ABG Base Excess ABG Hemoglobin VBG pH Oxyhemoglobin Sodium Potassium Chloride Carbon Dioxide BUN Creatinine Glucose POC Glucose 268 H 272 H 229 H Lactic Acid Calcium Phosphorus Total Bilirubin AST ALT C-Reactive Protein Total Protein Albumin Triglycerides Amylase Lipase Urine WBC (Auto) Vancomycin Trough Crossmatch 12/21/17 12/21/17 12/21/17 03:59 06:23 08:57 WBC RBC Hgb Hct MCV MCH MCHC RDW Plt Count Lymph % (Auto) Eos % (Auto) Becker # Eos # Baso # Seg Neutrophils % Seg Neuts % (Manual) Lymphocytes % (Manual) Monocytes % (Manual) Nucleated RBC % Seg Neutrophils # Seg Neutrophils # Man Lymphocytes # (Manual) Monocytes # (Manual) Eosinophils # (Manual) APTT POC ABG pH 7.474 H ABG pH POC ABG pCO2 POC ABG pO2 71 L ABG pO2 ABG HCO3 ABG O2 Saturation ABG Base Excess ABG Hemoglobin VBG pH Oxyhemoglobin Sodium Potassium Chloride Carbon Dioxide BUN Creatinine Glucose POC Glucose 182 H 217 H Lactic Acid Calcium Phosphorus Total Bilirubin AST ALT C-Reactive Protein Total Protein Albumin Triglycerides Amylase Lipase Urine WBC (Auto) Vancomycin Trough Crossmatch 12/21/17 12/21/17 12/21/17 13:59 18:00 21:20 WBC RBC Hgb Hct MCV MCH MCHC RDW Plt Count Lymph % (Auto) Eos % (Auto) Becker # Eos # Baso # Seg Neutrophils % Seg Neuts % (Manual) Lymphocytes % (Manual) Monocytes % (Manual) Nucleated RBC % Seg Neutrophils # Seg Neutrophils # Man Lymphocytes # (Manual) Monocytes # (Manual) Eosinophils # (Manual) APTT POC ABG pH ABG pH POC ABG pCO2 POC ABG pO2 ABG pO2 ABG HCO3 ABG O2 Saturation ABG Base Excess ABG Hemoglobin VBG pH Oxyhemoglobin Sodium Potassium Chloride Carbon Dioxide BUN Creatinine Glucose POC Glucose 185 H 176 H 187 H Lactic Acid Calcium Phosphorus Total Bilirubin AST ALT C-Reactive Protein Total Protein Albumin Triglycerides Amylase Lipase Urine WBC (Auto) Vancomycin Trough Crossmatch 12/21/17 12/22/17 12/22/17 23:48 04:39 05:30 WBC RBC Hgb Hct MCV MCH MCHC RDW Plt Count Lymph % (Auto) Eos % (Auto) Becker # Eos # Baso # Seg Neutrophils % Seg Neuts % (Manual) Lymphocytes % (Manual) Monocytes % (Manual) Nucleated RBC % Seg Neutrophils # Seg Neutrophils # Man Lymphocytes # (Manual) Monocytes # (Manual) Eosinophils # (Manual) APTT POC ABG pH 7.528 H ABG pH POC ABG pCO2 POC ABG pO2 63 L ABG pO2 ABG HCO3 ABG O2 Saturation ABG Base Excess ABG Hemoglobin VBG pH Oxyhemoglobin Sodium Potassium Chloride Carbon Dioxide BUN Creatinine Glucose POC Glucose 126 H 117 H Lactic Acid Calcium Phosphorus Total Bilirubin AST ALT C-Reactive Protein Total Protein Albumin Triglycerides Amylase Lipase Urine WBC (Auto) Vancomycin Trough Crossmatch 12/22/17 12/22/17 12/22/17 09:12 10:34 10:34 WBC 29.5 H RBC 3.44 L Hgb 11.2 L Hct 34.2 L MCV 99 H MCH 33 H MCHC RDW 13.1 L Plt Count 97 L Lymph % (Auto) Eos % (Auto) Becker # Eos # Baso # Seg Neutrophils % Seg Neuts % (Manual) 88.0 H Lymphocytes % (Manual) 5.0 L Monocytes % (Manual) Nucleated RBC % Seg Neutrophils # Seg Neutrophils # Man 26.0 H Lymphocytes # (Manual) Monocytes # (Manual) Eosinophils # (Manual) APTT POC ABG pH ABG pH POC ABG pCO2 POC ABG pO2 ABG pO2 ABG HCO3 ABG O2 Saturation ABG Base Excess ABG Hemoglobin VBG pH Oxyhemoglobin Sodium 146 H Potassium 3.1 L Chloride Carbon Dioxide BUN 25 H Creatinine 0.7 L Glucose 146 H POC Glucose 168 H Lactic Acid Calcium 8.1 L Phosphorus Total Bilirubin AST ALT C-Reactive Protein Total Protein Albumin Triglycerides Amylase Lipase Urine WBC (Auto) Vancomycin Trough Crossmatch 12/22/17 12/22/17 12/22/17 14:51 17:21 21:43 WBC RBC Hgb Hct MCV MCH MCHC RDW Plt Count Lymph % (Auto) Eos % (Auto) Becker # Eos # Baso # Seg Neutrophils % Seg Neuts % (Manual) Lymphocytes % (Manual) Monocytes % (Manual) Nucleated RBC % Seg Neutrophils # Seg Neutrophils # Man Lymphocytes # (Manual) Monocytes # (Manual) Eosinophils # (Manual) APTT POC ABG pH ABG pH POC ABG pCO2 POC ABG pO2 ABG pO2 ABG HCO3 ABG O2 Saturation ABG Base Excess ABG Hemoglobin VBG pH Oxyhemoglobin Sodium Potassium Chloride Carbon Dioxide BUN Creatinine Glucose POC Glucose 125 H 110 H 153 H Lactic Acid Calcium Phosphorus Total Bilirubin AST ALT C-Reactive Protein Total Protein Albumin Triglycerides Amylase Lipase Urine WBC (Auto) Vancomycin Trough Crossmatch 12/23/17 12/23/17 12/23/17 04:33 05:28 09:25 WBC 31.4 H RBC 3.05 L Hgb 9.8 L Hct 30.2 L MCV 99 H MCH MCHC RDW 12.9 L Plt Count 101 L Lymph % (Auto) Eos % (Auto) Becker # Eos # Baso # Seg Neutrophils % Seg Neuts % (Manual) 97 H Lymphocytes % (Manual) 2 L Monocytes % (Manual) Nucleated RBC % Seg Neutrophils # Seg Neutrophils # Man 31.1 H Lymphocytes # (Manual) 0.5 L Monocytes # (Manual) Eosinophils # (Manual) APTT POC ABG pH 7.573 H ABG pH POC ABG pCO2 31.0 L POC ABG pO2 63 L ABG pO2 ABG HCO3 ABG O2 Saturation ABG Base Excess ABG Hemoglobin VBG pH Oxyhemoglobin Sodium Potassium Chloride Carbon Dioxide BUN Creatinine Glucose POC Glucose 124 H Lactic Acid Calcium Phosphorus Total Bilirubin AST ALT C-Reactive Protein Total Protein Albumin Triglycerides Amylase Lipase Urine WBC (Auto) Vancomycin Trough Crossmatch 12/23/17 12/23/17 12/23/17 09:25 10:08 14:20 WBC RBC Hgb Hct MCV MCH MCHC RDW Plt Count Lymph % (Auto) Eos % (Auto) Becker # Eos # Baso # Seg Neutrophils % Seg Neuts % (Manual) Lymphocytes % (Manual) Monocytes % (Manual) Nucleated RBC % Seg Neutrophils # Seg Neutrophils # Man Lymphocytes # (Manual) Monocytes # (Manual) Eosinophils # (Manual) APTT POC ABG pH ABG pH POC ABG pCO2 POC ABG pO2 ABG pO2 ABG HCO3 ABG O2 Saturation ABG Base Excess ABG Hemoglobin VBG pH Oxyhemoglobin Sodium Potassium 3.1 L Chloride Carbon Dioxide BUN Creatinine 0.6 L Glucose 169 H POC Glucose 171 H 211 H Lactic Acid Calcium 7.9 L Phosphorus Total Bilirubin AST ALT C-Reactive Protein Total Protein Albumin Triglycerides Amylase Lipase Urine WBC (Auto) Vancomycin Trough Crossmatch 12/23/17 12/23/17 12/24/17 18:59 21:49 01:47 WBC RBC Hgb Hct MCV MCH MCHC RDW Plt Count Lymph % (Auto) Eos % (Auto) Becker # Eos # Baso # Seg Neutrophils % Seg Neuts % (Manual) Lymphocytes % (Manual) Monocytes % (Manual) Nucleated RBC % Seg Neutrophils # Seg Neutrophils # Man Lymphocytes # (Manual) Monocytes # (Manual) Eosinophils # (Manual) APTT POC ABG pH ABG pH POC ABG pCO2 POC ABG pO2 ABG pO2 ABG HCO3 ABG O2 Saturation ABG Base Excess ABG Hemoglobin VBG pH Oxyhemoglobin Sodium Potassium Chloride Carbon Dioxide BUN Creatinine Glucose POC Glucose 175 H 146 H 143 H Lactic Acid Calcium Phosphorus Total Bilirubin AST ALT C-Reactive Protein Total Protein Albumin Triglycerides Amylase Lipase Urine WBC (Auto) Vancomycin Trough Crossmatch 12/24/17 12/24/17 12/24/17 05:40 10:12 13:12 WBC RBC Hgb Hct MCV MCH MCHC RDW Plt Count Lymph % (Auto) Eos % (Auto) Becker # Eos # Baso # Seg Neutrophils % Seg Neuts % (Manual) Lymphocytes % (Manual) Monocytes % (Manual) Nucleated RBC % Seg Neutrophils # Seg Neutrophils # Man Lymphocytes # (Manual) Monocytes # (Manual) Eosinophils # (Manual) APTT POC ABG pH 7.558 H ABG pH POC ABG pCO2 27.6 L POC ABG pO2 71 L ABG pO2 ABG HCO3 ABG O2 Saturation ABG Base Excess ABG Hemoglobin VBG pH Oxyhemoglobin Sodium Potassium Chloride Carbon Dioxide BUN Creatinine Glucose POC Glucose 118 H 111 H Lactic Acid Calcium Phosphorus Total Bilirubin AST ALT C-Reactive Protein Total Protein Albumin Triglycerides Amylase Lipase Urine WBC (Auto) Vancomycin Trough Crossmatch 12/24/17 12/24/17 12/24/17 16:26 20:44 21:49 WBC RBC Hgb Hct MCV MCH MCHC RDW Plt Count Lymph % (Auto) Eos % (Auto) Becker # Eos # Baso # Seg Neutrophils % Seg Neuts % (Manual) Lymphocytes % (Manual) Monocytes % (Manual) Nucleated RBC % Seg Neutrophils # Seg Neutrophils # Man Lymphocytes # (Manual) Monocytes # (Manual) Eosinophils # (Manual) APTT POC ABG pH ABG pH POC ABG pCO2 POC ABG pO2 ABG pO2 ABG HCO3 ABG O2 Saturation ABG Base Excess ABG Hemoglobin VBG pH Oxyhemoglobin Sodium Potassium Chloride Carbon Dioxide BUN Creatinine Glucose POC Glucose 113 H 124 H 115 H Lactic Acid Calcium Phosphorus Total Bilirubin AST ALT C-Reactive Protein Total Protein Albumin Triglycerides Amylase Lipase Urine WBC (Auto) Vancomycin Trough Crossmatch 12/24/17 12/25/17 12/25/17 Unknown 02:26 03:38 WBC RBC Hgb Hct MCV MCH MCHC RDW Plt Count Lymph % (Auto) Eos % (Auto) Becker # Eos # Baso # Seg Neutrophils % Seg Neuts % (Manual) Lymphocytes % (Manual) Monocytes % (Manual) Nucleated RBC % Seg Neutrophils # Seg Neutrophils # Man Lymphocytes # (Manual) Monocytes # (Manual) Eosinophils # (Manual) APTT POC ABG pH 7.503 H ABG pH POC ABG pCO2 POC ABG pO2 66 L ABG pO2 ABG HCO3 ABG O2 Saturation ABG Base Excess ABG Hemoglobin VBG pH Oxyhemoglobin Sodium Potassium 3.0 L Chloride Carbon Dioxide BUN Creatinine 0.5 L Glucose 166 H POC Glucose 106 H Lactic Acid Calcium 7.8 L Phosphorus Total Bilirubin AST ALT C-Reactive Protein Total Protein Albumin Triglycerides Amylase Lipase Urine WBC (Auto) Vancomycin Trough Crossmatch 12/25/17 12/25/17 12/25/17 04:58 12:58 15:06 WBC RBC Hgb Hct MCV MCH MCHC RDW Plt Count Lymph % (Auto) Eos % (Auto) Becker # Eos # Baso # Seg Neutrophils % Seg Neuts % (Manual) Lymphocytes % (Manual) Monocytes % (Manual) Nucleated RBC % Seg Neutrophils # Seg Neutrophils # Man Lymphocytes # (Manual) Monocytes # (Manual) Eosinophils # (Manual) APTT POC ABG pH ABG pH POC ABG pCO2 POC ABG pO2 ABG pO2 ABG HCO3 ABG O2 Saturation ABG Base Excess ABG Hemoglobin VBG pH Oxyhemoglobin Sodium Potassium Chloride Carbon Dioxide BUN Creatinine Glucose POC Glucose 113 H 118 H Lactic Acid Calcium Phosphorus Total Bilirubin AST ALT C-Reactive Protein Total Protein Albumin Triglycerides Amylase Lipase Urine WBC (Auto) Vancomycin Trough 22.5 H Crossmatch 12/25/17 12/25/17 12/25/17 17:59 21:33 Unknown WBC 20.5 H RBC 2.75 L Hgb 9.1 L Hct 27.1 L MCV 99 H MCH 33 H MCHC RDW Plt Count 126 L Lymph % (Auto) Eos % (Auto) Becker # Eos # Baso # Seg Neutrophils % Seg Neuts % (Manual) 89.0 H Lymphocytes % (Manual) 6.0 L Monocytes % (Manual) Nucleated RBC % Seg Neutrophils # Seg Neutrophils # Man 18.2 H Lymphocytes # (Manual) Monocytes # (Manual) Eosinophils # (Manual) APTT POC ABG pH ABG pH POC ABG pCO2 POC ABG pO2 ABG pO2 ABG HCO3 ABG O2 Saturation ABG Base Excess ABG Hemoglobin VBG pH Oxyhemoglobin Sodium Potassium Chloride Carbon Dioxide BUN Creatinine Glucose POC Glucose 145 H 167 H Lactic Acid Calcium Phosphorus Total Bilirubin AST ALT C-Reactive Protein Total Protein Albumin Triglycerides Amylase Lipase Urine WBC (Auto) Vancomycin Trough Crossmatch 12/25/17 12/26/17 12/26/17 Unknown 02:26 05:29 WBC RBC Hgb Hct MCV MCH MCHC RDW Plt Count Lymph % (Auto) Eos % (Auto) Becker # Eos # Baso # Seg Neutrophils % Seg Neuts % (Manual) Lymphocytes % (Manual) Monocytes % (Manual) Nucleated RBC % Seg Neutrophils # Seg Neutrophils # Man Lymphocytes # (Manual) Monocytes # (Manual) Eosinophils # (Manual) APTT POC ABG pH ABG pH POC ABG pCO2 POC ABG pO2 ABG pO2 ABG HCO3 ABG O2 Saturation ABG Base Excess ABG Hemoglobin VBG pH Oxyhemoglobin Sodium Potassium 2.8 L* Chloride Carbon Dioxide BUN Creatinine 0.6 L Glucose POC Glucose 167 H 216 H Lactic Acid Calcium 7.4 L Phosphorus Total Bilirubin AST ALT C-Reactive Protein Total Protein Albumin Triglycerides Amylase Lipase Urine WBC (Auto) Vancomycin Trough Crossmatch 12/26/17 12/26/17 12/26/17 10:21 14:30 18:35 WBC RBC Hgb Hct MCV MCH MCHC RDW Plt Count Lymph % (Auto) Eos % (Auto) Becker # Eos # Baso # Seg Neutrophils % Seg Neuts % (Manual) Lymphocytes % (Manual) Monocytes % (Manual) Nucleated RBC % Seg Neutrophils # Seg Neutrophils # Man Lymphocytes # (Manual) Monocytes # (Manual) Eosinophils # (Manual) APTT POC ABG pH ABG pH POC ABG pCO2 POC ABG pO2 ABG pO2 ABG HCO3 ABG O2 Saturation ABG Base Excess ABG Hemoglobin VBG pH Oxyhemoglobin Sodium Potassium Chloride Carbon Dioxide BUN Creatinine Glucose POC Glucose 164 H 157 H 146 H Lactic Acid Calcium Phosphorus Total Bilirubin AST ALT C-Reactive Protein Total Protein Albumin Triglycerides Amylase Lipase Urine WBC (Auto) Vancomycin Trough Crossmatch 12/26/17 12/26/17 12/27/17 21:21 Unknown 01:54 WBC RBC Hgb Hct MCV MCH MCHC RDW Plt Count Lymph % (Auto) Eos % (Auto) Becker # Eos # Baso # Seg Neutrophils % Seg Neuts % (Manual) Lymphocytes % (Manual) Monocytes % (Manual) Nucleated RBC % Seg Neutrophils # Seg Neutrophils # Man Lymphocytes # (Manual) Monocytes # (Manual) Eosinophils # (Manual) APTT POC ABG pH ABG pH POC ABG pCO2 POC ABG pO2 ABG pO2 ABG HCO3 ABG O2 Saturation ABG Base Excess ABG Hemoglobin VBG pH Oxyhemoglobin Sodium Potassium 3.0 L Chloride Carbon Dioxide BUN Creatinine 0.5 L Glucose 166 H POC Glucose 132 H 157 H Lactic Acid Calcium 7.8 L Phosphorus Total Bilirubin AST ALT C-Reactive Protein Total Protein Albumin Triglycerides Amylase Lipase Urine WBC (Auto) Vancomycin Trough Crossmatch 12/27/17 12/27/17 12/27/17 05:20 05:20 05:44 WBC 26.4 H RBC 2.83 L Hgb 9.3 L Hct 27.6 L MCV 98 H MCH 33 H MCHC RDW Plt Count Lymph % (Auto) Eos % (Auto) Becker # Eos # Baso # Seg Neutrophils % Seg Neuts % (Manual) 85.0 H Lymphocytes % (Manual) 5.0 L Monocytes % (Manual) Nucleated RBC % Seg Neutrophils # Seg Neutrophils # Man 22.4 H Lymphocytes # (Manual) Monocytes # (Manual) Eosinophils # (Manual) 0.5 H APTT POC ABG pH ABG pH POC ABG pCO2 POC ABG pO2 ABG pO2 ABG HCO3 ABG O2 Saturation ABG Base Excess ABG Hemoglobin VBG pH Oxyhemoglobin Sodium Potassium 2.3 L* D Chloride Carbon Dioxide BUN 7 L Creatinine 0.6 L Glucose 123 H POC Glucose 128 H Lactic Acid Calcium 8.1 L Phosphorus Total Bilirubin AST ALT C-Reactive Protein Total Protein Albumin Triglycerides Amylase Lipase Urine WBC (Auto) Vancomycin Trough Crossmatch 12/27/17 12/27/17 12/27/17 10:04 14:44 15:30 WBC RBC Hgb Hct MCV MCH MCHC RDW Plt Count Lymph % (Auto) Eos % (Auto) Becker # Eos # Baso # Seg Neutrophils % Seg Neuts % (Manual) Lymphocytes % (Manual) Monocytes % (Manual) Nucleated RBC % Seg Neutrophils # Seg Neutrophils # Man Lymphocytes # (Manual) Monocytes # (Manual) Eosinophils # (Manual) APTT POC ABG pH ABG pH POC ABG pCO2 POC ABG pO2 ABG pO2 ABG HCO3 ABG O2 Saturation ABG Base Excess ABG Hemoglobin VBG pH Oxyhemoglobin Sodium Potassium 3.1 L D Chloride Carbon Dioxide BUN Creatinine Glucose POC Glucose 115 H 128 H Lactic Acid Calcium Phosphorus Total Bilirubin AST ALT C-Reactive Protein Total Protein Albumin Triglycerides Amylase Lipase Urine WBC (Auto) Vancomycin Trough Crossmatch 12/28/17 12/28/17 12/28/17 00:39 02:13 05:17 WBC RBC Hgb Hct MCV MCH MCHC RDW Plt Count Lymph % (Auto) Eos % (Auto) Becker # Eos # Baso # Seg Neutrophils % Seg Neuts % (Manual) Lymphocytes % (Manual) Monocytes % (Manual) Nucleated RBC % Seg Neutrophils # Seg Neutrophils # Man Lymphocytes # (Manual) Monocytes # (Manual) Eosinophils # (Manual) APTT POC ABG pH ABG pH 7.497 H POC ABG pCO2 POC ABG pO2 ABG pO2 71.4 L ABG HCO3 29.9 H ABG O2 Saturation ABG Base Excess 6.2 H ABG Hemoglobin 7.9 L VBG pH Oxyhemoglobin 94.9 L Sodium Potassium Chloride Carbon Dioxide BUN Creatinine Glucose POC Glucose 112 H 108 H Lactic Acid Calcium Phosphorus Total Bilirubin AST ALT C-Reactive Protein Total Protein Albumin Triglycerides Amylase Lipase Urine WBC (Auto) Vancomycin Trough Crossmatch 12/28/17 12/28/17 12/28/17 08:47 08:47 09:10 WBC 28.1 H RBC 2.76 L Hgb 9.1 L Hct 27.0 L MCV 98 H MCH 33 H MCHC RDW Plt Count Lymph % (Auto) Eos % (Auto) Becker # Eos # Baso # Seg Neutrophils % Seg Neuts % (Manual) Lymphocytes % (Manual) Monocytes % (Manual) Nucleated RBC % Seg Neutrophils # Seg Neutrophils # Man Lymphocytes # (Manual) Monocytes # (Manual) Eosinophils # (Manual) APTT POC ABG pH ABG pH POC ABG pCO2 POC ABG pO2 ABG pO2 ABG HCO3 ABG O2 Saturation ABG Base Excess ABG Hemoglobin VBG pH Oxyhemoglobin Sodium Potassium 2.2 L* D Chloride Carbon Dioxide BUN 5 L Creatinine 0.5 L Glucose 106 H POC Glucose Lactic Acid Calcium 8.3 L Phosphorus 2.20 L Total Bilirubin AST ALT C-Reactive Protein Total Protein Albumin Triglycerides Amylase Lipase Urine WBC (Auto) Vancomycin Trough Crossmatch 12/28/17 12/28/17 12/28/17 13:28 14:22 18:48 WBC RBC Hgb Hct MCV MCH MCHC RDW Plt Count Lymph % (Auto) Eos % (Auto) Becker # Eos # Baso # Seg Neutrophils % Seg Neuts % (Manual) Lymphocytes % (Manual) Monocytes % (Manual) Nucleated RBC % Seg Neutrophils # Seg Neutrophils # Man Lymphocytes # (Manual) Monocytes # (Manual) Eosinophils # (Manual) APTT POC ABG pH ABG pH 7.476 H POC ABG pCO2 POC ABG pO2 ABG pO2 167.7 H ABG HCO3 30.9 H ABG O2 Saturation 99.1 H ABG Base Excess 6.7 H ABG Hemoglobin 8.5 L VBG pH Oxyhemoglobin Sodium Potassium Chloride Carbon Dioxide BUN Creatinine Glucose POC Glucose 141 H 129 H Lactic Acid Calcium Phosphorus Total Bilirubin AST ALT C-Reactive Protein Total Protein Albumin Triglycerides Amylase Lipase Urine WBC (Auto) Vancomycin Trough Crossmatch 12/28/17 12/29/17 12/29/17 21:22 02:45 05:11 WBC RBC Hgb Hct MCV MCH MCHC RDW Plt Count Lymph % (Auto) Eos % (Auto) Becker # Eos # Baso # Seg Neutrophils % Seg Neuts % (Manual) Lymphocytes % (Manual) Monocytes % (Manual) Nucleated RBC % Seg Neutrophils # Seg Neutrophils # Man Lymphocytes # (Manual) Monocytes # (Manual) Eosinophils # (Manual) APTT POC ABG pH ABG pH POC ABG pCO2 POC ABG pO2 ABG pO2 ABG HCO3 ABG O2 Saturation ABG Base Excess ABG Hemoglobin VBG pH Oxyhemoglobin Sodium Potassium Chloride Carbon Dioxide BUN Creatinine Glucose POC Glucose 123 H 138 H 138 H Lactic Acid Calcium Phosphorus Total Bilirubin AST ALT C-Reactive Protein Total Protein Albumin Triglycerides Amylase Lipase Urine WBC (Auto) Vancomycin Trough Crossmatch 12/29/17 12/29/17 12/29/17 05:50 08:04 08:04 WBC 20.8 H RBC 2.26 L Hgb 7.5 L Hct 22.7 L MCV 100 H MCH 33 H MCHC RDW Plt Count Lymph % (Auto) Eos % (Auto) Becker # Eos # Baso # Seg Neutrophils % Seg Neuts % (Manual) 93.0 H Lymphocytes % (Manual) 2.0 L Monocytes % (Manual) Nucleated RBC % Seg Neutrophils # Seg Neutrophils # Man 19.3 H Lymphocytes # (Manual) 0.4 L Monocytes # (Manual) Eosinophils # (Manual) 0.7 H APTT POC ABG pH ABG pH 7.467 H POC ABG pCO2 POC ABG pO2 ABG pO2 ABG HCO3 28.2 H ABG O2 Saturation ABG Base Excess 4.0 H ABG Hemoglobin < 5.1 L VBG pH Oxyhemoglobin Sodium Potassium 3.0 L D Chloride Carbon Dioxide BUN Creatinine 0.5 L Glucose 147 H POC Glucose Lactic Acid Calcium 7.8 L Phosphorus Total Bilirubin AST ALT C-Reactive Protein Total Protein 5.6 L Albumin 2.4 L Triglycerides Amylase Lipase Urine WBC (Auto) Vancomycin Trough Crossmatch 12/29/17 12/29/17 12/29/17 08:20 10:59 14:09 WBC RBC Hgb Hct MCV MCH MCHC RDW Plt Count Lymph % (Auto) Eos % (Auto) Becker # Eos # Baso # Seg Neutrophils % Seg Neuts % (Manual) Lymphocytes % (Manual) Monocytes % (Manual) Nucleated RBC % Seg Neutrophils # Seg Neutrophils # Man Lymphocytes # (Manual) Monocytes # (Manual) Eosinophils # (Manual) APTT POC ABG pH ABG pH POC ABG pCO2 POC ABG pO2 ABG pO2 ABG HCO3 ABG O2 Saturation ABG Base Excess ABG Hemoglobin VBG pH Oxyhemoglobin Sodium Potassium Chloride Carbon Dioxide BUN Creatinine Glucose POC Glucose 153 H 186 H 183 H Lactic Acid Calcium Phosphorus Total Bilirubin AST ALT C-Reactive Protein Total Protein Albumin Triglycerides Amylase Lipase Urine WBC (Auto) Vancomycin Trough Crossmatch 12/29/17 12/29/17 12/29/17 18:03 22:05 22:56 WBC RBC Hgb Hct MCV MCH MCHC RDW Plt Count Lymph % (Auto) Eos % (Auto) Becker # Eos # Baso # Seg Neutrophils % Seg Neuts % (Manual) Lymphocytes % (Manual) Monocytes % (Manual) Nucleated RBC % Seg Neutrophils # Seg Neutrophils # Man Lymphocytes # (Manual) Monocytes # (Manual) Eosinophils # (Manual) APTT POC ABG pH ABG pH POC ABG pCO2 POC ABG pO2 ABG pO2 ABG HCO3 ABG O2 Saturation ABG Base Excess ABG Hemoglobin VBG pH Oxyhemoglobin Sodium Potassium Chloride Carbon Dioxide BUN Creatinine Glucose POC Glucose 159 H 146 H 179 H Lactic Acid Calcium Phosphorus Total Bilirubin AST ALT C-Reactive Protein Total Protein Albumin Triglycerides Amylase Lipase Urine WBC (Auto) Vancomycin Trough Crossmatch 12/30/17 12/30/17 12/30/17 02:03 04:50 04:50 WBC 18.3 H RBC 2.22 L Hgb 7.4 L Hct 23.0 L MCV 104 H MCH 33 H MCHC RDW Plt Count 137 L Lymph % (Auto) 9.0 L Eos % (Auto) Becker # Eos # 0.5 H Baso # Seg Neutrophils % 84.9 H Seg Neuts % (Manual) Lymphocytes % (Manual) Monocytes % (Manual) Nucleated RBC % Seg Neutrophils # 15.6 H Seg Neutrophils # Man Lymphocytes # (Manual) Monocytes # (Manual) Eosinophils # (Manual) APTT POC ABG pH ABG pH POC ABG pCO2 POC ABG pO2 ABG pO2 ABG HCO3 ABG O2 Saturation ABG Base Excess ABG Hemoglobin VBG pH Oxyhemoglobin Sodium 147 H Potassium 3.1 L D Chloride 107.5 H Carbon Dioxide BUN Creatinine 0.5 L Glucose 120 H POC Glucose 118 H Lactic Acid Calcium 7.4 L Phosphorus Total Bilirubin AST ALT C-Reactive Protein Total Protein Albumin Triglycerides Amylase Lipase Urine WBC (Auto) Vancomycin Trough Crossmatch 12/30/17 12/30/17 12/30/17 05:04 13:53 17:33 WBC RBC Hgb Hct MCV MCH MCHC RDW Plt Count Lymph % (Auto) Eos % (Auto) Becker # Eos # Baso # Seg Neutrophils % Seg Neuts % (Manual) Lymphocytes % (Manual) Monocytes % (Manual) Nucleated RBC % Seg Neutrophils # Seg Neutrophils # Man Lymphocytes # (Manual) Monocytes # (Manual) Eosinophils # (Manual) APTT POC ABG pH ABG pH POC ABG pCO2 POC ABG pO2 ABG pO2 ABG HCO3 ABG O2 Saturation ABG Base Excess ABG Hemoglobin VBG pH Oxyhemoglobin Sodium Potassium Chloride Carbon Dioxide BUN Creatinine Glucose POC Glucose 150 H 113 H 145 H Lactic Acid Calcium Phosphorus Total Bilirubin AST ALT C-Reactive Protein Total Protein Albumin Triglycerides Amylase Lipase Urine WBC (Auto) Vancomycin Trough Crossmatch 12/31/17 12/31/17 12/31/17 01:54 03:15 03:15 WBC 17.1 H RBC 2.08 L Hgb 6.9 L Hct 20.6 L MCV 99 H MCH 33 H MCHC RDW 13.1 L Plt Count Lymph % (Auto) 10.5 L Eos % (Auto) Becker # Eos # 0.6 H Baso # Seg Neutrophils % 82.3 H Seg Neuts % (Manual) Lymphocytes % (Manual) Monocytes % (Manual) Nucleated RBC % Seg Neutrophils # 14.0 H Seg Neutrophils # Man Lymphocytes # (Manual) Monocytes # (Manual) Eosinophils # (Manual) APTT POC ABG pH ABG pH POC ABG pCO2 POC ABG pO2 ABG pO2 ABG HCO3 ABG O2 Saturation ABG Base Excess ABG Hemoglobin VBG pH Oxyhemoglobin Sodium Potassium 3.5 L Chloride Carbon Dioxide BUN Creatinine 0.6 L Glucose POC Glucose 69 L Lactic Acid Calcium 7.8 L Phosphorus Total Bilirubin AST ALT C-Reactive Protein Total Protein Albumin Triglycerides Amylase Lipase Urine WBC (Auto) Vancomycin Trough Crossmatch 12/31/17 12/31/17 12/31/17 05:15 09:25 10:17 WBC RBC Hgb Hct MCV MCH MCHC RDW Plt Count Lymph % (Auto) Eos % (Auto) Becker # Eos # Baso # Seg Neutrophils % Seg Neuts % (Manual) Lymphocytes % (Manual) Monocytes % (Manual) Nucleated RBC % Seg Neutrophils # Seg Neutrophils # Man Lymphocytes # (Manual) Monocytes # (Manual) Eosinophils # (Manual) APTT POC ABG pH ABG pH 7.516 H POC ABG pCO2 POC ABG pO2 ABG pO2 69.2 L ABG HCO3 28.7 H ABG O2 Saturation ABG Base Excess 5.3 H ABG Hemoglobin 6.6 L VBG pH Oxyhemoglobin 93.8 L Sodium Potassium Chloride Carbon Dioxide BUN Creatinine Glucose POC Glucose 143 H Lactic Acid Calcium Phosphorus Total Bilirubin AST ALT C-Reactive Protein Total Protein Albumin Triglycerides Amylase Lipase Urine WBC (Auto) Vancomycin Trough Crossmatch See Detail 12/31/17 12/31/17 12/31/17 14:20 18:30 21:40 WBC RBC Hgb Hct MCV MCH MCHC RDW Plt Count Lymph % (Auto) Eos % (Auto) Becker # Eos # Baso # Seg Neutrophils % Seg Neuts % (Manual) Lymphocytes % (Manual) Monocytes % (Manual) Nucleated RBC % Seg Neutrophils # Seg Neutrophils # Man Lymphocytes # (Manual) Monocytes # (Manual) Eosinophils # (Manual) APTT POC ABG pH ABG pH POC ABG pCO2 POC ABG pO2 ABG pO2 ABG HCO3 ABG O2 Saturation ABG Base Excess ABG Hemoglobin VBG pH Oxyhemoglobin Sodium Potassium Chloride Carbon Dioxide BUN Creatinine Glucose POC Glucose 175 H 137 H 182 H Lactic Acid Calcium Phosphorus Total Bilirubin AST ALT C-Reactive Protein Total Protein Albumin Triglycerides Amylase Lipase Urine WBC (Auto) Vancomycin Trough Crossmatch 12/31/17 01/01/18 01/01/18 23:34 02:09 04:00 WBC 16.4 H RBC 2.41 L Hgb 7.8 L Hct 23.6 L MCV 98 H MCH 33 H MCHC RDW Plt Count Lymph % (Auto) 10.7 L Eos % (Auto) Becker # Eos # 0.7 H Baso # 0.2 H Seg Neutrophils % 79.0 H Seg Neuts % (Manual) Lymphocytes % (Manual) Monocytes % (Manual) Nucleated RBC % Seg Neutrophils # 12.9 H Seg Neutrophils # Man Lymphocytes # (Manual) Monocytes # (Manual) Eosinophils # (Manual) APTT POC ABG pH ABG pH POC ABG pCO2 POC ABG pO2 ABG pO2 ABG HCO3 ABG O2 Saturation ABG Base Excess ABG Hemoglobin VBG pH Oxyhemoglobin Sodium Potassium Chloride Carbon Dioxide BUN Creatinine Glucose POC Glucose 132 H 117 H Lactic Acid Calcium Phosphorus Total Bilirubin AST ALT C-Reactive Protein Total Protein Albumin Triglycerides Amylase Lipase Urine WBC (Auto) Vancomycin Trough Crossmatch 01/01/18 01/01/18 01/01/18 04:00 04:04 05:32 WBC RBC Hgb Hct MCV MCH MCHC RDW Plt Count Lymph % (Auto) Eos % (Auto) Becker # Eos # Baso # Seg Neutrophils % Seg Neuts % (Manual) Lymphocytes % (Manual) Monocytes % (Manual) Nucleated RBC % Seg Neutrophils # Seg Neutrophils # Man Lymphocytes # (Manual) Monocytes # (Manual) Eosinophils # (Manual) APTT POC ABG pH ABG pH 7.458 H POC ABG pCO2 POC ABG pO2 ABG pO2 67.5 L ABG HCO3 27.5 H ABG O2 Saturation 94.4 L ABG Base Excess 3.4 H ABG Hemoglobin 7.8 L VBG pH Oxyhemoglobin 92.1 L Sodium Potassium Chloride Carbon Dioxide BUN Creatinine 0.4 L Glucose 129 H POC Glucose 129 H Lactic Acid Calcium 7.9 L Phosphorus Total Bilirubin AST ALT C-Reactive Protein Total Protein Albumin Triglycerides Amylase Lipase Urine WBC (Auto) Vancomycin Trough Crossmatch 01/01/18 01/01/18 01/01/18 10:10 12:38 17:27 WBC RBC Hgb Hct MCV MCH MCHC RDW Plt Count Lymph % (Auto) Eos % (Auto) Becker # Eos # Baso # Seg Neutrophils % Seg Neuts % (Manual) Lymphocytes % (Manual) Monocytes % (Manual) Nucleated RBC % Seg Neutrophils # Seg Neutrophils # Man Lymphocytes # (Manual) Monocytes # (Manual) Eosinophils # (Manual) APTT POC ABG pH ABG pH POC ABG pCO2 POC ABG pO2 ABG pO2 ABG HCO3 ABG O2 Saturation ABG Base Excess ABG Hemoglobin VBG pH Oxyhemoglobin Sodium Potassium Chloride Carbon Dioxide BUN Creatinine Glucose POC Glucose 155 H 179 H 152 H Lactic Acid Calcium Phosphorus Total Bilirubin AST ALT C-Reactive Protein Total Protein Albumin Triglycerides Amylase Lipase Urine WBC (Auto) Vancomycin Trough Crossmatch 01/01/18 01/02/18 01/02/18 21:36 01:42 04:10 WBC 12.1 H RBC 2.29 L Hgb 7.5 L Hct 22.7 L MCV 99 H MCH 33 H MCHC RDW Plt Count Lymph % (Auto) Eos % (Auto) 5.5 H Becker # 0.9 H Eos # 0.7 H Baso # Seg Neutrophils % Seg Neuts % (Manual) Lymphocytes % (Manual) Monocytes % (Manual) Nucleated RBC % Seg Neutrophils # 8.3 H Seg Neutrophils # Man Lymphocytes # (Manual) Monocytes # (Manual) Eosinophils # (Manual) APTT POC ABG pH ABG pH POC ABG pCO2 POC ABG pO2 ABG pO2 ABG HCO3 ABG O2 Saturation ABG Base Excess ABG Hemoglobin VBG pH Oxyhemoglobin Sodium Potassium Chloride Carbon Dioxide BUN Creatinine Glucose POC Glucose 118 H 117 H Lactic Acid Calcium Phosphorus Total Bilirubin AST ALT C-Reactive Protein Total Protein Albumin Triglycerides Amylase Lipase Urine WBC (Auto) Vancomycin Trough Crossmatch 01/02/18 01/02/1801/02/18 04:10 04:57 13:42 WBC RBC Hgb Hct MCV MCH MCHC RDW Plt Count Lymph % (Auto) Eos % (Auto) Becker # Eos # Baso # Seg Neutrophils % Seg Neuts % (Manual) Lymphocytes % (Manual) Monocytes % (Manual) Nucleated RBC % Seg Neutrophils # Seg Neutrophils # Man Lymphocytes # (Manual) Monocytes # (Manual) Eosinophils # (Manual) APTT POC ABG pH ABG pH POC ABG pCO2 POC ABG pO2 ABG pO2 ABG HCO3 ABG O2 Saturation ABG Base Excess ABG Hemoglobin VBG pH Oxyhemoglobin Sodium Potassium Chloride 97.0 L Carbon Dioxide BUN Creatinine 0.4 L Glucose POC Glucose 107 H 133 H Lactic Acid Calcium 8.1 L Phosphorus Total Bilirubin AST ALT C-Reactive Protein Total Protein 6.0 L Albumin 2.5 L Triglycerides Amylase Lipase Urine WBC (Auto) Vancomycin Trough Crossmatch 01/02/18 01/02/18 01/03/18 17:33 22:11 02:18 WBC RBC Hgb Hct MCV MCH MCHC RDW Plt Count Lymph % (Auto) Eos % (Auto) Becker # Eos # Baso # Seg Neutrophils % Seg Neuts % (Manual) Lymphocytes % (Manual) Monocytes % (Manual) Nucleated RBC % Seg Neutrophils # Seg Neutrophils # Man Lymphocytes # (Manual) Monocytes # (Manual) Eosinophils # (Manual) APTT POC ABG pH ABG pH POC ABG pCO2 POC ABG pO2 ABG pO2 ABG HCO3 ABG O2 Saturation ABG Base Excess ABG Hemoglobin VBG pH Oxyhemoglobin Sodium Potassium Chloride Carbon Dioxide BUN Creatinine Glucose POC Glucose 146 H 171 H 162 H Lactic Acid Calcium Phosphorus Total Bilirubin AST ALT C-Reactive Protein Total Protein Albumin Triglycerides Amylase Lipase Urine WBC (Auto) Vancomycin Trough Crossmatch 01/03/18 01/03/18 04:56 05:21 WBC RBC Hgb Hct MCV MCH MCHC RDW Plt Count Lymph % (Auto) Eos % (Auto) Becker # Eos # Baso # Seg Neutrophils % Seg Neuts % (Manual) Lymphocytes % (Manual) Monocytes % (Manual) Nucleated RBC % Seg Neutrophils # Seg Neutrophils # Man Lymphocytes # (Manual) Monocytes # (Manual) Eosinophils # (Manual) APTT POC ABG pH ABG pH POC ABG pCO2 POC ABG pO2 ABG pO2 79.5 L ABG HCO3 31.4 H ABG O2 Saturation ABG Base Excess 6.3 H ABG Hemoglobin 10.4 L VBG pH Oxyhemoglobin 94.2 L Sodium Potassium Chloride Carbon Dioxide BUN Creatinine Glucose POC Glucose 163 H Lactic Acid Calcium Phosphorus Total Bilirubin AST ALT C-Reactive Protein Total Protein Albumin Triglycerides Amylase Lipase Urine WBC (Auto) Vancomycin Trough Crossmatch
[2018-01-03] MEDS: POTASSIUM CHLORIDE PO SCH (15:26)
[2018-01-03] MEDS: PEPCID PO SCH ×2 (15:26→21:58)
[2018-01-03] MEDS: VITAMIN B-1 PO SCH (15:27)
[2018-01-03] MEDS: DEXMEDETOMIDINE 400 MCG in NACL 0.9% 100 ML IV SCH (15:33)
--- NOTE | 2018-01-03 18:48 | Progress Note ---
Assessment and Plan Assessment and plan: --Acute hypoxic respiratory failure : self extubated , intubated again for hypoxic hypercapnic respiratory failure Vent support nebulizers and IV steroids, wean as tolerated and extubated --Anemia; received 1 unit PRBC hemoglobin 7.8, monitor --Sepsis/aspiration pneumonia/ARDS Received Zyvox cefepime and Flagyl, monitor off antibiotics per ID --Hypokalemia; corrected closely monitor --Alcohol abuse: sedated, cont iv thiamine, Librium as needed --Hypotension; blood pressures reasonable level, of Levophed --Thrombocytopenia, improving, no evidence of bleeding --Severe protein calorie malnutrition; nutrition supplements, tube feeding and supportive care --DM type 2-continue Accu-Chek sliding scale coverage long-acting insulin, chilled feeding --DVT prophylaxis: Continue heparin and SCDs Consults and recommendations reviewed Plan of care reviewed with the patient's nurse Critical care time 31 minutes The high probability of a clinically significant sudden or life-threatening deterioration of the [infectious, respiratory, hematologic] system(s) required my full and direct attention, intervention and personal management. The aggregate critical care time was [31 ] minutes. This time is in addition to the time spent performing reported procedures but including [ X] Data review and interpretation [ X] Patient assessment and monitoring of vital signs [ X ] Documentation [X] Medication orders and management History Interval history: Patient seen and examined this morning medical records reviewed Remains intubated on ventilatory support Patient is alert and awake responding to simple questions appropriately Family member at the bedside No new events, vital signs reviewed Hospitalist Physical - Constitutional Vitals: Temp Pulse Resp BP Pulse Ox 98.4 F 112 H 20 135/80 99 01/03/18 04:00 01/03/18 16:45 01/03/18 16:45 01/03/18 16:00 01/03/18 16:00 General appearance: Present: no acute distress, well-nourished, other ( intubated on vent) - EENT Eyes: Present: PERRL, EOM intact - Neck Neck: Present: supple, normal ROM - Respiratory Respiratory effort: normal Respiratory: bilateral: diminished, negative: rales, rhonchi, wheezing - Cardiovascular Rhythm: regular Heart Sounds: Present: S1 & S2 - Extremities Extremities: no ischemia, No edema - Abdominal General gastrointestinal: soft, non-tender, non-distended, normal bowel sounds - Integumentary Integumentary: Present: clear, warm - Psychiatric Psychiatric: other (on vent) - Neurologic Neurologic: other (intubated on vent) Results - Labs CBC & Chem 7: 01/04/18 06:12 01/04/18 06:12 Labs: Laboratory Last Values WBC 12.1 K/mm3 (4.5-11.0) H 01/02/18 04:10 RBC 2.29 M/mm3 (3.65-5.03) L 01/02/18 04:10 Hgb 7.5 gm/dl (11.8-15.2) L 01/02/18 04:10 Hct 22.7 % (35.5-45.6) L 01/02/18 04:10 MCV 99 fl (84-94) H 01/02/18 04:10 MCH 33 pg (28-32) H 01/02/18 04:10 MCHC 33 % (32-34) 01/02/18 04:10 RDW 14.0 % (13.2-15.2) 01/02/18 04:10 Plt Count 166 K/mm3 (140-440) 01/02/18 04:10 Lymph % (Auto) 18.5 % (13.4-35.0) 01/02/18 04:10 Wheeler % (Auto) 7.1 % (0.0-7.3) 01/02/18 04:10 Eos % (Auto) 5.5 % (0.0-4.3) H 01/02/18 04:10 Baso % (Auto) 0.3 % (0.0-1.8) 01/02/18 04:10 Lymph # 2.2 K/mm3 (1.2-5.4) 01/02/18 04:10 Wheeler # 0.9 K/mm3 (0.0-0.8) H 01/02/18 04:10 Eos # 0.7 K/mm3 (0.0-0.4) H 01/02/18 04:10 Baso # 0.0 K/mm3 (0.0-0.1) 01/02/18 04:10 Add Manual Diff Complete 12/29/17 08:04 Total Counted 200 12/29/17 08:04 Seg Neutrophils % 68.6 % (40.0-70.0) 01/02/18 04:10 Seg Neuts % (Manual) 93.0 % (40.0-70.0) H 12/29/17 08:04 Band Neutrophils % 0 % 12/29/17 08:04 Lymphocytes % (Manual) 2.0 % (13.4-35.0) L 12/29/17 08:04 Reactive Lymphs % (Man) 0 % 12/29/17 08:04 Monocytes % (Manual) 1.5 % (0.0-7.3) 12/29/17 08:04 Eosinophils % (Manual) 3.5 % (0.0-4.3) 12/29/17 08:04 Basophils % (Manual) 0 % (0.0-1.8) 12/29/17 08:04 Metamyelocytes % 0 % 12/29/17 08:04 Myelocytes % 0 % 12/29/17 08:04 Promyelocytes % 0 % 12/29/17 08:04 Blast Cells % 0 % 12/29/17 08:04 Nucleated RBC % Not Reportable 12/29/17 08:04 Seg Neutrophils # 8.3 K/mm3 (1.8-7.7) H 01/02/18 04:10 Seg Neutrophils # Man 19.3 K/mm3 (1.8-7.7) H 12/29/17 08:04 Band Neutrophils # 0.0 K/mm3 12/29/17 08:04 Lymphocytes # (Manual) 0.4 K/mm3 (1.2-5.4) L 12/29/17 08:04 Abs React Lymphs (Man) 0.0 K/mm3 12/29/17 08:04 Monocytes # (Manual) 0.3 K/mm3 (0.0-0.8) 12/29/17 08:04 Eosinophils # (Manual) 0.7 K/mm3 (0.0-0.4) H 12/29/17 08:04 Basophils # (Manual) 0.0 K/mm3 (0.0-0.1) 12/29/17 08:04 Metamyelocytes # 0.0 K/mm3 12/29/17 08:04 Myelocytes # 0.0 K/mm3 12/29/17 08:04 Promyelocytes # 0.0 K/mm3 12/29/17 08:04 Blast Cells # 0.0 K/mm3 12/29/17 08:04 Pathologist Review 12/23/17 09:25 WBC Morphology Not Reportable 12/29/17 08:04 Hypersegmented Neuts Not Reportable 12/29/17 08:04 Hyposegmented Neuts Not Reportable 12/29/17 08:04 Hypogranular Neuts Not Reportable 12/29/17 08:04 Smudge Cells Not Reportable 12/29/17 08:04 Toxic Granulation Not Reportable 12/29/17 08:04 Toxic Vacuolation Not Reportable 12/29/17 08:04 Dohle Bodies Not Reportable 12/29/17 08:04 Pelger-Huet Anomaly Not Reportable 12/29/17 08:04 Mary Rods Not Reportable 12/29/17 08:04 Platelet Estimate Consistent w auto 12/29/17 08:04 Clumped Platelets Not Reportable 12/29/17 08:04 Plt Clumps, EDTA Not Reportable 12/29/17 08:04 Large Platelets Not Reportable 12/29/17 08:04 Giant Platelets Not Reportable 12/29/17 08:04 Platelet Satelliting Not Reportable 12/29/17 08:04 Plt Morphology Comment Not Reportable 12/29/17 08:04 RBC Morphology Not Reportable 12/29/17 08:04 Dimorphic RBCs Not Reportable 12/29/17 08:04 Polychromasia Not Reportable 12/29/17 08:04 Hypochromasia Not Reportable 12/29/17 08:04 Poikilocytosis Not Reportable 12/29/17 08:04 Anisocytosis 1+ 12/29/17 08:04 Microcytosis Not Reportable 12/29/17 08:04 Macrocytosis Not Reportable 12/29/17 08:04 Spherocytes Not Reportable 12/29/17 08:04 Pappenheimer Bodies Not Reportable 12/29/17 08:04 Sickle Cells Not Reportable 12/29/17 08:04 Target Cells Not Reportable 12/29/17 08:04 Tear Drop Cells Not Reportable 12/29/17 08:04 Ovalocytes Not Reportable 12/29/17 08:04 Stomatocytes 1+ 12/29/17 08:04 Helmet Cells Not Reportable 12/29/17 08:04 Arceo-Poquott Bodies Not Reportable 12/29/17 08:04 [place] Rings Not Reportable 12/29/17 08:04 [place] Cells Not Reportable 12/29/17 08:04 Bite Cells Not Reportable 12/29/17 08:04 Crenated Cell Not Reportable 12/29/17 08:04 Elliptocytes Not Reportable 12/29/17 08:04 Acanthocytes (Spur) Not Reportable 12/29/17 08:04 Rouleaux Not Reportable 12/29/17 08:04 Hemoglobin C Crystals Not Reportable 12/29/17 08:04 Schistocytes Not Reportable 12/29/17 08:04 Malaria parasites Not Reportable 12/29/17 08:04 Vipul Bodies Not Reportable 12/29/17 08:04 Hem Pathologist Commnt No 12/29/17 08:04 PT 14.9 Sec. (12.2-14.9) 12/15/17 04:05 INR 1.11 (0.87-1.13) 12/15/17 04:05 APTT 20.9 Sec. (24.2-36.6) L 12/15/17 04:05 POC ABG pH 7.503 (7.35-7.45) H 12/25/17 03:38 ABG pH 7.437 pH Units (7.350-7.450) 01/03/18 04:56 POC ABG pCO2 35.8 (35-45) 12/25/17 03:38 ABG pCO2 47.6 mm Hg 01/03/18 04:56 POC ABG pO2 66 (80-105) L 12/25/17 03:38 ABG pO2 79.5 mm Hg (80.0-90.0) L 01/03/18 04:56 POC ABG HCO3 28.1 12/25/17 03:38 ABG HCO3 31.4 mmol/L (20.0-26.0) H 01/03/18 04:56 POC ABG Total CO2 29 12/25/17 03:38 POC ABG O2 Sat 95 12/25/17 03:38 ABG O2 Saturation 96.4 % (95.0-99.0) 01/03/18 04:56 ABG O2 Content 13.8 (0.0-44) 01/03/18 04:56 POC ABG Base Excess 5 12/25/17 03:38 ABG Base Excess 6.3 mmol/L (-2.0-3.0) H 01/03/18 04:56 ABG Hemoglobin 10.4 gm/dl (14.0-18.0) L 01/03/18 04:56 ABG Carboxyhemoglobin 1.9 % (0.0-5.0) 01/03/18 04:56 ABG Methemoglobin 0.4 % (0.0-1.5) 01/03/18 04:56 VBG pH 7.472 (7.320-7.420) H 12/12/17 19:18 Oxyhemoglobin 94.2 % (95.0-99.0) L 01/03/18 04:56 FiO2 40 % 01/03/18 04:56 Sodium 138 mmol/L (137-145) 01/02/18 04:10 Potassium 3.8 mmol/L (3.6-5.0) 01/02/18 04:10 Chloride 97.0 mmol/L (98-107) L 01/02/18 04:10 Carbon Dioxide 28 mmol/L (22-30) 01/02/18 04:10 Anion Gap 17 mmol/L 01/02/18 04:10 BUN 9 mg/dL (9-20) 01/02/18 04:10 Creatinine 0.4 mg/dL (0.8-1.5) L 01/02/18 04:10 Estimated GFR > 60 ml/min 01/02/18 04:10 BUN/Creatinine Ratio 23 % 01/02/18 04:10 Glucose 93 mg/dL (75-100) 01/02/18 04:10 POC Glucose 153 (70-105) H 01/03/18 17:20 Lactic Acid 2.00 mmol/L (0.7-2.0) 12/13/17 19:38 Calcium 8.1 mg/dL (8.4-10.2) L 01/02/18 04:10 Phosphorus 2.20 mg/dL (2.5-4.5) L 12/28/17 08:47 Magnesium 1.90 mg/dL (1.7-2.3) 12/30/17 04:50 Total Bilirubin 0.30 mg/dL (0.1-1.2) 01/02/18 04:10 AST 20 units/L (5-40) 01/02/18 04:10 ALT 20 units/L (7-56) 01/02/18 04:10 Alkaline Phosphatase 57 units/L (35-129) 01/02/18 04:10 C-Reactive Protein 7.10 mg/dL (0.00-1.30) H 12/20/17 13:40 NT-Pro-B Natriuret Pep 409.9 pg/mL (0-450) 12/12/17 19:02 Total Protein 6.0 g/dL (6.3-8.2) L 01/02/18 04:10 Albumin 2.5 g/dL (3.9-5) L 01/02/18 04:10 Albumin/Globulin Ratio 0.7 % 01/02/18 04:10 Triglycerides 1042 mg/dL (2-149) H 12/20/17 13:40 Amylase 20 units/L (27-131) L 12/13/17 13:47 Lipase 9 units/L (13-60) L 12/13/17 13:47 Urine Color Neeta (Yellow) 12/15/17 17:00 Urine Turbidity Hazy (Clear) 12/15/17 17:00 Urine pH 6.0 (5.0-7.0) 12/15/17 17:00 Ur Specific Gilliam 1.027 (1.003-1.030) 12/15/17 17:00 Urine Protein 30 mg/dl mg/dL (Negative) 12/15/17 17:00 Urine Glucose (UA) Neg mg/dL (Negative) 12/15/17 17:00 Urine Ketones Tr mg/dL (Negative) 12/15/17 17:00 Urine Blood Lg (Negative) 12/15/17 17:00 Urine Nitrite Neg (Negative) 12/15/17 17:00 Urine Bilirubin Neg (Negative) 12/15/17 17:00 Urine Ictotest Positive (Negative) 12/12/17 20:42 Urine Urobilinogen < 2.0 mg/dL (<2.0) 12/15/17 17:00 Ur Leukocyte Esterase Tr (Negative) 12/15/17 17:00 Urine WBC (Auto) 38.0 /HPF (0.0-6.0) H 12/15/17 17:00 Urine RBC (Auto) 65.0 /HPF (0.0-6.0) 12/15/17 17:00 U Epithel Cells (Auto) < 1.0 /HPF (0-13.0) 12/12/17 20:42 Urine Bacteria (Auto) 1+ /HPF (Negative) 12/15/17 17:00 Urine Mucus 1+ /HPF 12/12/17 20:42 Vancomycin Trough 22.5 ug/mL (5.0-20.0) H 12/25/17 12:58 JERMAIN Screen Negative (Negative) 12/18/17 16:44 Proteinase 3 (PR3) Ab <1.0 AI (<1.0) 12/18/17 16:33 Myeloperoxidase Ab <1.0 AI (<1.0) 12/18/17 16:33 Complement C3 113 mg/dL (82-185) 12/18/17 16:33 Complement C4 15 mg/dL (15-53) 12/18/17 16:33 Hepatitis A IgM Ab Non-reactive (NonReactive) 12/20/17 13:40 Hep Bs Antigen Non-reactive (Negative) 12/20/17 13:40 Hep B Core IgM Ab Non-reactive (NonReactive) 12/20/17 13:40 Hepatitis C Antibody Non-reactive (NonReactive) 12/20/17 13:40 HIV 1&2 Antibody Rapid Non react (Non React) 12/20/17 13:40 HIV P24 Antigen Non react (Non React) 12/20/17 13:40 Influenza A (Rapid) Negative (Negative) 12/12/17 22:00 Influenza B (Rapid) Negative (Negative) 12/12/17 22:00 Urine Legionella Ag Not detected (Not Detected) 12/14/17 16:15 Miscellaneous Test Flexitest 1 12/14/17 16:15 Blood Type O POSITIVE 12/31/17 09:25 Antibody Screen Negative 12/31/17 09:25 Crossmatch See Detail 12/31/17 09:25
[2018-01-03] MEDS: SODIUM CHLORIDE FLUSH SYRINGE 10 ML IV PRN (21:59)
[2018-01-04] MEDS: LOPRESSOR IV SCH ×8 (00:19→23:32)
[2018-01-04] MEDS: LIBRIUM PO SCH ×6 (00:20→23:32)
[2018-01-04] MEDS: HumaLOG SUB-Q SCH ×7 (02:00→22:25)
[2018-01-04 04:26] LABS: ABG Base Excess 6.4 mmol/L (-2.0-3.0); ABG HCO3 30.1 mmol/L (20.0-26.0); ABG Methemoglobin 0.4 % (0.0-1.5); ABG Oxygen Saturation 98.7 % (95.0-99.0); ABG PCO2 39.6 mm Hg; ABG PH 7.498 pH Units (7.350-7.450); ABG PO2 129.5 mm Hg (80.0-90.0)
[2018-01-04] MEDS: SODIUM CHLORIDE FLUSH SYRINGE 10 ML IV PRN ×2 (05:26→05:30)
[2018-01-04] MEDS: SODIUM CHLORIDE FLUSH SYRINGE 10 ML IV SCH ×5 (05:31→21:06)
[2018-01-04 06:56] LABS: Hematocrit 29.5 % (35.5-45.6); Hemoglobin 9.8 gm/dl (11.8-15.2); Mean Corpuscular HGB Conc 33 % (32-34); Mean Corpuscular Hemoglobin 33 pg (28-32); Mean Corpuscular Volume 100 fl (84-94); Platelet Count 211 K/mm3 (140-440); Red Blood Count 2.95 M/mm3 (3.65-5.03); Red Cell Distribution Width 14.5 % (13.2-15.2)
[2018-01-04 07:17] LABS: Alanine Aminotransferase 37 units/L (7-56); Albumin 2.9 g/dL (3.9-5); BUN/Creatinine Ratio 18; Blood Urea Nitrogen 9 mg/dL (9-20); Calcium 9.3 mg/dL (8.4-10.2); Hemolysis Index 4
[2018-01-04] MEDS: LANTUS SUB-Q SCH ×2 (07:22→09:35)
[2018-01-04] MEDS ORDERED: CATHFLO IV ONE (07:36)
[2018-01-04] MEDS: HEPARIN SUB-Q SCH ×3 (08:06→21:05)
[2018-01-04 08:55] LABS: Basophils % (Manual) 0 % (0.0-1.8); Total Cells Counted 100
[2018-01-04 08:57] LABS: Large Platelets Few; RBC Morphology Normal
[2018-01-04] MEDS: DUONEB *Not for PRN Use IH SCH ×3 (08:59→19:44)
[2018-01-04] MEDS: PEPCID PO SCH ×2 (09:35→21:05)
[2018-01-04] MEDS: POTASSIUM CHLORIDE PO SCH (09:35)
[2018-01-04] MEDS: VITAMIN B-1 PO SCH (09:35)
--- NOTE | 2018-01-04 09:53 | Progress Note ---
Assessment and Plan Assessment and plan: --Acute hypoxic respiratory failure : Remains intubated for hypoxic hypercapnic respiratory failure Vent support nebulizers and IV steroids wean as tolerated and extubated --Anemia; received PRBC transfusion --Sepsis/aspiration pneumonia/ARDS Received Zyvox cefepime and Flagyl, monitor off antibiotics per ID --Hypokalemia; corrected closely monitor --Alcohol abuse: sedated, cont iv thiamine, Librium as needed --Hypotension; blood pressures reasonable level, of Levophed --Thrombocytopenia, improving, no evidence of bleeding --Severe protein calorie malnutrition; nutrition supplements, tube feeding and supportive care --DM type 2-continue Accu-Chek sliding scale coverage long-acting insulin, chilled feeding --DVT prophylaxis: Continue heparin and SCDs Consults and recommendations reviewed Plan of care reviewed with the patient's nurse Critical care time 31 minutes The high probability of a clinically significant sudden or life-threatening deterioration of the [infectious, respiratory, hematologic] system(s) required my full and direct attention, intervention and personal management. The aggregate critical care time was [31 ] minutes. This time is in addition to the time spent performing reported procedures but including [ X] Data review and interpretation [ X] Patient assessment and monitoring of vital signs [ X ] Documentation [X] Medication orders and management History Interval history: Patient seen and examined Medical records reviewed no new events reported by the nursing staff Remains intubated on ventilator support on Weaning parameters Alert and awake, vital signs reviewed Hospitalist Physical - Constitutional Vitals: Temp Pulse Resp BP Pulse Ox 99.4 F 120 H 18 113/73 100 01/04/18 04:00 01/04/18 09:00 01/04/18 09:00 01/04/18 09:00 01/04/18 09:00 General appearance: Present: no acute distress, well-nourished, other ( intubated on vent) - EENT Eyes: Present: PERRL, EOM intact - Neck Neck: Present: supple, normal ROM - Respiratory Respiratory effort: normal Respiratory: bilateral: diminished, negative: rales, rhonchi, wheezing - Cardiovascular Rhythm: regular Heart Sounds: Present: S1 & S2 - Extremities Extremities: no ischemia, No edema - Abdominal General gastrointestinal: soft, non-tender, non-distended, normal bowel sounds - Integumentary Integumentary: Present: clear, warm - Psychiatric Psychiatric: appropriate mood/affect, cooperative - Neurologic Neurologic: CNII-XII intact, moves all extremities Results - Labs CBC & Chem 7: 01/04/18 06:12 01/04/18 06:12 Labs: Laboratory Last Values WBC 11.5 K/mm3 (4.5-11.0) H 01/04/18 06:12 RBC 2.95 M/mm3 (3.65-5.03) L 01/04/18 06:12 Hgb 9.8 gm/dl (11.8-15.2) L 01/04/18 06:12 Hct 29.5 % (35.5-45.6) L D 01/04/18 06:12 MCV 100 fl (84-94) H 01/04/18 06:12 MCH 33 pg (28-32) H 01/04/18 06:12 MCHC 33 % (32-34) 01/04/18 06:12 RDW 14.5 % (13.2-15.2) 01/04/18 06:12 Plt Count 211 K/mm3 (140-440) 01/04/18 06:12 Lymph % (Auto) 18.5 % (13.4-35.0) 01/02/18 04:10 [place] % (Auto) 7.1 % (0.0-7.3) 01/02/18 04:10 Eos % (Auto) 5.5 % (0.0-4.3) H 01/02/18 04:10 Baso % (Auto) 0.3 % (0.0-1.8) 01/02/18 04:10 Lymph # 2.2 K/mm3 (1.2-5.4) 01/02/18 04:10 [place] # 0.9 K/mm3 (0.0-0.8) H 01/02/18 04:10 Eos # 0.7 K/mm3 (0.0-0.4) H 01/02/18 04:10 Baso # 0.0 K/mm3 (0.0-0.1) 01/02/18 04:10 Add Manual Diff Complete 01/04/18 06:12 Total Counted 100 01/04/18 06:12 Seg Neutrophils % 68.6 % (40.0-70.0) 01/02/18 04:10 Seg Neuts % (Manual) 65.0 % (40.0-70.0) 01/04/18 06:12 Band Neutrophils % 0 % 01/04/18 06:12 Lymphocytes % (Manual) 22.0 % (13.4-35.0) 01/04/18 06:12 Reactive Lymphs % (Man) 0 % 01/04/18 06:12 Monocytes % (Manual) 7.0 % (0.0-7.3) 01/04/18 06:12 Eosinophils % (Manual) 6.0 % (0.0-4.3) H 01/04/18 06:12 Basophils % (Manual) 0 % (0.0-1.8) 01/04/18 06:12 Metamyelocytes % 0 % 01/04/18 06:12 Myelocytes % 0 % 01/04/18 06:12 Promyelocytes % 0 % 01/04/18 06:12 Blast Cells % 0 % 01/04/18 06:12 Nucleated RBC % Not Reportable 01/04/18 06:12 Seg Neutrophils # 8.3 K/mm3 (1.8-7.7) H 01/02/18 04:10 Seg Neutrophils # Man 7.5 K/mm3 (1.8-7.7) 01/04/18 06:12 Band Neutrophils # 0.0 K/mm3 01/04/18 06:12 Lymphocytes # (Manual) 2.5 K/mm3 (1.2-5.4) 01/04/18 06:12 Abs React Lymphs (Man) 0.0 K/mm3 01/04/18 06:12 Monocytes # (Manual) 0.8 K/mm3 (0.0-0.8) 01/04/18 06:12 Eosinophils # (Manual) 0.7 K/mm3 (0.0-0.4) H 01/04/18 06:12 Basophils # (Manual) 0.0 K/mm3 (0.0-0.1) 01/04/18 06:12 Metamyelocytes # 0.0 K/mm3 01/04/18 06:12 Myelocytes # 0.0 K/mm3 01/04/18 06:12 Promyelocytes # 0.0 K/mm3 01/04/18 06:12 Blast Cells # 0.0 K/mm3 01/04/18 06:12 Pathologist Review 12/23/17 09:25 WBC Morphology Not Reportable 01/04/18 06:12 Hypersegmented Neuts Not Reportable 01/04/18 06:12 Hyposegmented Neuts Not Reportable 01/04/18 06:12 Hypogranular Neuts Not Reportable 01/04/18 06:12 Smudge Cells Not Reportable 01/04/18 06:12 Toxic Granulation Not Reportable 01/04/18 06:12 Toxic Vacuolation Not Reportable 01/04/18 06:12 Dohle Bodies Not Reportable 01/04/18 06:12 Pelger-Huet Anomaly Not Reportable 01/04/18 06:12 Mary Rods Not Reportable 01/04/18 06:12 Platelet Estimate Appears normal 01/04/18 06:12 Clumped Platelets Not Reportable 01/04/18 06:12 Plt Clumps, EDTA Not Reportable 01/04/18 06:12 Large Platelets Few 01/04/18 06:12 Giant Platelets Not Reportable 01/04/18 06:12 Platelet Satelliting Not Reportable 01/04/18 06:12 Plt Morphology Comment Not Reportable 01/04/18 06:12 RBC Morphology Normal 01/04/18 06:12 Dimorphic RBCs Not Reportable 01/04/18 06:12 Polychromasia Not Reportable 01/04/18 06:12 Hypochromasia Not Reportable 01/04/18 06:12 Poikilocytosis Not Reportable 01/04/18 06:12 Anisocytosis Not Reportable 01/04/18 06:12 Microcytosis Not Reportable 01/04/18 06:12 Macrocytosis Not Reportable 01/04/18 06:12 Spherocytes Not Reportable 01/04/18 06:12 Pappenheimer Bodies Not Reportable 01/04/18 06:12 Sickle Cells Not Reportable 01/04/18 06:12 Target Cells Not Reportable 01/04/18 06:12 Tear Drop Cells Not Reportable 01/04/18 06:12 Ovalocytes Not Reportable 01/04/18 06:12 Stomatocytes 1+ 12/29/17 08:04 Helmet Cells Not Reportable 01/04/18 06:12 Arceo-Vivian Bodies Not Reportable 01/04/18 06:12 [place] Rings Not Reportable 01/04/18 06:12 Chidi Cells Not Reportable 01/04/18 06:12 Bite Cells Not Reportable 01/04/18 06:12 Crenated Cell Not Reportable 01/04/18 06:12 Elliptocytes Not Reportable 01/04/18 06:12 Acanthocytes (Spur) Not Reportable 01/04/18 06:12 Rouleaux Not Reportable 01/04/18 06:12 Hemoglobin C Crystals Not Reportable 01/04/18 06:12 Schistocytes Not Reportable 01/04/18 06:12 Malaria parasites Not Reportable 01/04/18 06:12 Vipul Bodies Not Reportable 01/04/18 06:12 Hem Pathologist Commnt No 01/04/18 06:12 PT 14.9 Sec. (12.2-14.9) 12/15/17 04:05 INR 1.11 (0.87-1.13) 12/15/17 04:05 APTT 20.9 Sec. (24.2-36.6) L 12/15/17 04:05 POC ABG pH 7.503 (7.35-7.45) H 12/25/17 03:38 ABG pH 7.498 pH Units (7.350-7.450) H 01/04/18 04:01 POC ABG pCO2 35.8 (35-45) 12/25/17 03:38 ABG pCO2 39.6 mm Hg 01/04/18 04:01 POC ABG pO2 66 (80-105) L 12/25/17 03:38 ABG pO2 129.5 mm Hg (80.0-90.0) H 01/04/18 04:01 POC ABG HCO3 28.1 12/25/17 03:38 ABG HCO3 30.1 mmol/L (20.0-26.0) H 01/04/18 04:01 POC ABG Total CO2 29 12/25/17 03:38 POC ABG O2 Sat 95 12/25/17 03:38 ABG O2 Saturation 98.7 % (95.0-99.0) 01/04/18 04:01 ABG O2 Content 12.8 (0.0-44) 01/04/18 04:01 POC ABG Base Excess 5 12/25/17 03:38 ABG Base Excess 6.4 mmol/L (-2.0-3.0) H 01/04/18 04:01 ABG Hemoglobin 9.3 gm/dl (14.0-18.0) L 01/04/18 04:01 ABG Carboxyhemoglobin 2.0 % (0.0-5.0) 01/04/18 04:01 ABG Methemoglobin 0.4 % (0.0-1.5) 01/04/18 04:01 VBG pH 7.472 (7.320-7.420) H 12/12/17 19:18 Oxyhemoglobin 96.3 % (95.0-99.0) 01/04/18 04:01 FiO2 40 % 01/04/18 04:01 Sodium 140 mmol/L (137-145) 01/04/18 06:12 Potassium 4.2 mmol/L (3.6-5.0) 01/04/18 06:12 Chloride 98.2 mmol/L (98-107) 01/04/18 06:12 Carbon Dioxide 30 mmol/L (22-30) 01/04/18 06:12 Anion Gap 16 mmol/L 01/04/18 06:12 BUN 9 mg/dL (9-20) 01/04/18 06:12 Creatinine 0.5 mg/dL (0.8-1.5) L 01/04/18 06:12 Estimated GFR > 60 ml/min 01/04/18 06:12 BUN/Creatinine Ratio 18 % 01/04/18 06:12 Glucose 174 mg/dL (75-100) H 01/04/18 06:12 POC Glucose 163 (70-105) H 01/04/18 05:13 Lactic Acid 2.00 mmol/L (0.7-2.0) 12/13/17 19:38 Calcium 9.3 mg/dL (8.4-10.2) 01/04/18 06:12 Phosphorus 3.00 mg/dL (2.5-4.5) 01/04/18 06:12 Magnesium 2.00 mg/dL (1.7-2.3) 01/04/18 06:12 Total Bilirubin 0.30 mg/dL (0.1-1.2) 01/04/18 06:12 AST 41 units/L (5-40) H 01/04/18 06:12 ALT 37 units/L (7-56) 01/04/18 06:12 Alkaline Phosphatase 74 units/L (35-129) 01/04/18 06:12 C-Reactive Protein 7.10 mg/dL (0.00-1.30) H 12/20/17 13:40 NT-Pro-B Natriuret Pep 409.9 pg/mL (0-450) 12/12/17 19:02 Total Protein 7.4 g/dL (6.3-8.2) D 01/04/18 06:12 Albumin 2.9 g/dL (3.9-5) L 01/04/18 06:12 Albumin/Globulin Ratio 0.6 % 01/04/18 06:12 Triglycerides 1042 mg/dL (2-149) H 12/20/17 13:40 Amylase 20 units/L (27-131) L 12/13/17 13:47 Lipase 9 units/L (13-60) L 12/13/17 13:47 Urine Color Neeta (Yellow) 12/15/17 17:00 Urine Turbidity Hazy (Clear) 12/15/17 17:00 Urine pH 6.0 (5.0-7.0) 12/15/17 17:00 Ur Specific [place] 1.027 (1.003-1.030) 12/15/17 17:00 Urine Protein 30 mg/dl mg/dL (Negative) 12/15/17 17:00 Urine Glucose (UA) Neg mg/dL (Negative) 12/15/17 17:00 Urine Ketones Tr mg/dL (Negative) 12/15/17 17:00 Urine Blood Lg (Negative) 12/15/17 17:00 Urine Nitrite Neg (Negative) 12/15/17 17:00 Urine Bilirubin Neg (Negative) 12/15/17 17:00 Urine Ictotest Positive (Negative) 12/12/17 20:42 Urine Urobilinogen < 2.0 mg/dL (<2.0) 12/15/17 17:00 Ur Leukocyte Esterase Tr (Negative) 12/15/17 17:00 Urine WBC (Auto) 38.0 /HPF (0.0-6.0) H 12/15/17 17:00 Urine RBC (Auto) 65.0 /HPF (0.0-6.0) 12/15/17 17:00 U Epithel Cells (Auto) < 1.0 /HPF (0-13.0) 12/12/17 20:42 Urine Bacteria (Auto) 1+ /HPF (Negative) 12/15/17 17:00 Urine Mucus 1+ /HPF 12/12/17 20:42 Vancomycin Trough 22.5 ug/mL (5.0-20.0) H 12/25/17 12:58 JERMAIN Screen Negative (Negative) 12/18/17 16:44 Proteinase 3 (PR3) Ab <1.0 AI (<1.0) 12/18/17 16:33 Myeloperoxidase Ab <1.0 AI (<1.0) 12/18/17 16:33 Complement C3 113 mg/dL (82-185) 12/18/17 16:33 Complement C4 15 mg/dL (15-53) 12/18/17 16:33 Hepatitis A IgM Ab Non-reactive (NonReactive) 12/20/17 13:40 Hep Bs Antigen Non-reactive (Negative) 12/20/17 13:40 Hep B Core IgM Ab Non-reactive (NonReactive) 12/20/17 13:40 Hepatitis C Antibody Non-reactive (NonReactive) 12/20/17 13:40 HIV 1&2 Antibody Rapid Non react (Non React) 12/20/17 13:40 HIV P24 Antigen Non react (Non React) 12/20/17 13:40 Influenza A (Rapid) Negative (Negative) 12/12/17 22:00 Influenza B (Rapid) Negative (Negative) 12/12/17 22:00 Urine Legionella Ag Not detected (Not Detected) 12/14/17 16:15 Miscellaneous Test Flexitest 1 12/14/17 16:15 Blood Type O POSITIVE 12/31/17 09:25 Antibody Screen Negative 12/31/17 09:25 Crossmatch See Detail 12/31/17 09:25
--- NOTE | 2018-01-04 10:34 | Progress Note ---
Assessment and Plan Assessment: 1) Severe Sepsis: fever, resolved and leukocytosis very slowly improving. Etiology most likely complicated H influenza bacteremia +/- pneumonia +/- ? intraabdominal source. -blood cx negative -US legs No DVT -Abd US negative 2) H influenza bacteremia: likely from pneumonia. TTE neg 3) Complicated Bilateral pneumonia: etiology H influenza - should r/o empyema or abscess -CXR showed kimberlee pneumonia -Sputum 12/20 showed usual resp angelika -HIV neg -JERMAIN and ANCA negative -C3/C4 normal -CRP=7.1 -Strep pneumoniae not detected -Legionella not detected -tracheal aspirate - usual resp angelika -s/p 12 days cefepime and flagyl until 12/31 -s/p 7 days zyvox until 12/31 -CT chest 01/01 Extensive Bilateral mixed airspace and interstitial infiltrates c/w pneumonia or edema. 4) Acute respiratory failure: re-intubated 5) Thrombocytopenia : from sepsis, resolved 6) Elevated LFTs: resolved, etio. ?sepsis, ETOH. Viral hepatitis all negative. 7) DM type 2: uncontrolled 8) H/o etoh abuse Plan: -Monitor temperature. -Monitor WBC. -Monitor off antibiotics at this time. -If fever or worsening leukocytosis will re-start antibiotics. -d/w ROAD ROLLER OPERATOR. Carlene Mulligan MD Infectious Diseases Specialist [facility] [phone] Subjective Date of service: 01/04/18 Principal diagnosis: ARDS Interval history: Pt is afebrile. Failed weaning trial yesterday. Gets agitated at times, but overall better. Microbiology: Blood cultures: 12/12 H influenza 1 of 4 bottles 12/15 neg 12/17 neg 12/23 neg 12/26 neg 12/30 neg Respiratory cultures: 12/13 - usual resp angelika 12/20 tracheal asp - usual resp angelika Current Antimicrobials: None Previous Antimicrobials: Zosyn Levaquin 12/13 Clindamycin 12/17 vanco 12/17-12/25 zyvox 11/27-12/31 cefepime 12/20-12/31 flagyl 12/20-12/31 Objective - Exam Narrative Exam: Narrative Exam: General appearance: Pt in NAD, on the vent. Awake, following commands. Eyes: anicteric sclerae, moist conjunctivae; PERRLA HENT: Atraumatic; oropharynx +ETT, NG tube. Neck: Trachea midline; supple, no thyromegaly or lymphadenopathy Lungs: Clear. CV: S1,S2. Abdomen: Soft, NT. Rectal tube with liquid stools. : awad catheter. Extremities: legs edema. Skin: no rash. Psych: alert. Neuro: alert, moving all extremities. Lines: right PICC 12/20. - Constitutional Vitals: Vital Signs Temp Pulse Resp BP Pulse Ox 99.4 F 120 H 18 113/73 100 01/04/18 04:00 01/04/18 09:00 01/04/18 09:00 01/04/18 09:00 01/04/18 09:00 Temperature -Last 24 Hours Temperature 99.4 F Temperature 98.8 F Temperature 98.5 F Temperature 98.8 F Temperature 98.2 F - Labs CBC & Chem 7: 01/04/18 06:12 01/04/18 06:12 Labs: Abnormal lab results 01/03/18 01/03/18 01/03/18 Range/Units 17:20 17:50 19:52 WBC (4.5-11.0) K/mm3 RBC (3.65-5.03) M/mm3 Hgb (11.8-15.2) gm/dl Hct (35.5-45.6) % MCV (84-94) fl MCH (28-32) pg Eosinophils % (Manual) (0.0-4.3) % Eosinophils # (Manual) (0.0-0.4) K/mm3 ABG pH (7.350-7.450) pH Units ABG pO2 (80.0-90.0) mm Hg ABG HCO3 (20.0-26.0) mmol/L ABG Base Excess (-2.0-3.0) mmol/L ABG Hemoglobin (14.0-18.0) gm/dl Creatinine (0.8-1.5) mg/dL Glucose (75-100) mg/dL POC Glucose 153 H 157 H 147 H (70-105) AST (5-40) units/L Albumin (3.9-5) g/dL 01/04/18 01/04/18 01/04/18 Range/Units 00:40 04:01 05:13 WBC (4.5-11.0) K/mm3 RBC (3.65-5.03) M/mm3 Hgb (11.8-15.2) gm/dl Hct (35.5-45.6) % MCV (84-94) fl MCH (28-32) pg Eosinophils % (Manual) (0.0-4.3) % Eosinophils # (Manual) (0.0-0.4) K/mm3 ABG pH 7.498 H (7.350-7.450) pH Units ABG pO2 129.5 H (80.0-90.0) mm Hg ABG HCO3 30.1 H (20.0-26.0) mmol/L ABG Base Excess 6.4 H (-2.0-3.0) mmol/L ABG Hemoglobin 9.3 L (14.0-18.0) gm/dl Creatinine (0.8-1.5) mg/dL Glucose (75-100) mg/dL POC Glucose 158 H 163 H (70-105) AST (5-40) units/L Albumin (3.9-5) g/dL 01/04/18 01/04/18 Range/Units 06:12 06:12 WBC 11.5 H (4.5-11.0) K/mm3 RBC 2.95 L (3.65-5.03) M/mm3 Hgb 9.8 L (11.8-15.2) gm/dl Hct 29.5 L D (35.5-45.6) % MCV 100 H (84-94) fl MCH 33 H (28-32) pg Eosinophils % (Manual) 6.0 H (0.0-4.3) % Eosinophils # (Manual) 0.7 H (0.0-0.4) K/mm3 ABG pH (7.350-7.450) pH Units ABG pO2 (80.0-90.0) mm Hg ABG HCO3 (20.0-26.0) mmol/L ABG Base Excess (-2.0-3.0) mmol/L ABG Hemoglobin (14.0-18.0) gm/dl Creatinine 0.5 L (0.8-1.5) mg/dL Glucose 174 H (75-100) mg/dL POC Glucose (70-105) AST 41 H (5-40) units/L Albumin 2.9 L (3.9-5) g/dL
--- NOTE | 2018-01-04 11:22 | Progress Note ---
Assessment and Plan Acute hypoxemic respiratory failure Pneumonia. No fever. Off antibiotics at this point. See ID comments ARDS. Improved but still with impairment. CT showed pulmonary infiltrates post ARDS and unable to wean further Severe sepsis. Completed antibiotics Mixed lactic, respiratory anion gap acidosis Thrombocytopenia. Sepsis related versus history of alcohol use. Resolved Diabetes mellitus Abdominal distention. Cause unknown Obesity Recommendations Patient failed further weaning attempts earlier this morning. Apparently he is currently off Precedex but he does desaturate when switched to pressure support ventilation If no further improvement, patient needs tracheotomy. Discussed with patient and . Doppler to be in agreement with tracheotomy. Reviewed with staff and RT. Critical care time was 31 minutes of [id number] evaluation coordination of care Subjective Date of service: 01/04/18 Principal diagnosis: ARDS,Respiratory failure,pneumonia Interval history: Observation but uncomfortable all morning according to his . Objective Vital Signs - 12hr 01/03/18 01/03/18 01/03/18 23:30 23:45 23:53 Temperature Pulse Rate 109 H 109 H 110 H Pulse Rate [ Anterior Bilateral Throughout] Pulse Rate [ From Monitor] Pulse Rate [ Right Dorsalis Pedis] Respiratory 23 24 25 H Rate Respiratory Rate [Anterior Bilateral Throughout] Blood Pressure 126/80 129/82 126/80 O2 Sat by Pulse 98 98 98 Oximetry 01/03/18 01/03/18 01/04/18 23:58 23:59 00:00 Temperature 98.5 F 98.8 F Pulse Rate 110 H Pulse Rate [ Anterior Bilateral Throughout] Pulse Rate [ 112 H From Monitor] Pulse Rate [ 112 H Right Dorsalis Pedis] Respiratory 24 25 H Rate Respiratory Rate [Anterior Bilateral Throughout] Blood Pressure 142/87 O2 Sat by Pulse 98 97 Oximetry 01/04/18 01/04/18 01/04/18 00:15 00:19 00:30 Temperature Pulse Rate 111 H 110 H 96 H Pulse Rate [ Anterior Bilateral Throughout] Pulse Rate [ From Monitor] Pulse Rate [ Right Dorsalis Pedis] Respiratory 25 H 21 Rate Respiratory Rate [Anterior Bilateral Throughout] Blood Pressure 133/83 133/83 117/78 O2 Sat by Pulse 99 96 Oximetry 01/04/18 01/04/18 01/04/18 00:45 01:00 01:15 Temperature Pulse Rate 98 H 99 H 99 H Pulse Rate [ Anterior Bilateral Throughout] Pulse Rate [ From Monitor] Pulse Rate [ Right Dorsalis Pedis] Respiratory 22 22 24 Rate Respiratory Rate [Anterior Bilateral Throughout] Blood Pressure 117/78 124/72 125/82 O2 Sat by Pulse 97 96 96 Oximetry 01/04/18 01/04/18 01/04/18 01:30 01:45 02:00 Temperature Pulse Rate 99 H 101 H 100 H Pulse Rate [ Anterior Bilateral Throughout] Pulse Rate [ 98 H From Monitor] Pulse Rate [ 98 H Right Dorsalis Pedis] Respiratory 23 22 22 Rate Respiratory Rate [Anterior Bilateral Throughout] Blood Pressure 131/80 127/74 123/79 O2 Sat by Pulse 95 100 97 Oximetry 01/04/18 01/04/18 01/04/18 02:15 02:30 02:45 Temperature Pulse Rate 103 H 103 H 108 H Pulse Rate [ Anterior Bilateral Throughout] Pulse Rate [ From Monitor] Pulse Rate [ Right Dorsalis Pedis] Respiratory 23 23 25 H Rate Respiratory Rate [Anterior Bilateral Throughout] Blood Pressure 125/80 125/78 129/80 O2 Sat by Pulse 97 98 98 Oximetry 01/04/18 01/04/18 01/04/18 03:00 03:15 03:30 Temperature Pulse Rate 108 H 111 H 111 H Pulse Rate [ Anterior Bilateral Throughout] Pulse Rate [ From Monitor] Pulse Rate [ Right Dorsalis Pedis] Respiratory 24 28 H 27 H Rate Respiratory Rate [Anterior Bilateral Throughout] Blood Pressure 120/71 130/75 123/74 O2 Sat by Pulse 98 96 95 Oximetry 01/04/18 01/04/18 01/04/18 03:41 03:45 04:00 Temperature 99.4 F Pulse Rate 110 H 111 H 110 H Pulse Rate [ Anterior Bilateral Throughout] Pulse Rate [ 108 H From Monitor] Pulse Rate [ 110 H Right Dorsalis Pedis] Respiratory 28 H 24 Rate Respiratory Rate [Anterior Bilateral Throughout] Blood Pressure 123/74 129/80 124/74 O2 Sat by Pulse 96 99 96 Oximetry 01/04/18 01/04/18 01/04/18 04:15 04:30 04:45 Temperature Pulse Rate 109 H 110 H 112 H Pulse Rate [ Anterior Bilateral Throughout] Pulse Rate [ From Monitor] Pulse Rate [ Right Dorsalis Pedis] Respiratory 26 H 25 H 25 H Rate Respiratory Rate [Anterior Bilateral Throughout] Blood Pressure 128/76 127/76 127/77 O2 Sat by Pulse 97 97 97 Oximetry 01/04/18 01/04/18 01/04/18 05:00 05:15 05:27 Temperature Pulse Rate 113 H 99 H 112 H Pulse Rate [ Anterior Bilateral Throughout] Pulse Rate [ From Monitor] Pulse Rate [ Right Dorsalis Pedis] Respiratory 26 H 25 H Rate Respiratory Rate [Anterior Bilateral Throughout] Blood Pressure 129/79 125/76 125/76 O2 Sat by Pulse 97 90 Oximetry 01/04/18 01/04/18 01/04/18 05:30 05:45 06:00 Temperature Pulse Rate 102 H 111 H Pulse Rate [ Anterior Bilateral Throughout] Pulse Rate [ From Monitor] Pulse Rate [ Right Dorsalis Pedis] Respiratory 26 H 34 H Rate Respiratory Rate [Anterior Bilateral Throughout] Blood Pressure 133/80 144/91 139/85 O2 Sat by Pulse 92 92 90 Oximetry 01/04/18 01/04/18 01/04/18 06:15 06:30 06:45 Temperature Pulse Rate 109 H 112 H 112 H Pulse Rate [ Anterior Bilateral Throughout] Pulse Rate [ From Monitor] Pulse Rate [ Right Dorsalis Pedis] Respiratory 25 H 27 H 29 H Rate Respiratory Rate [Anterior Bilateral Throughout] Blood Pressure 129/79 125/82 130/81 O2 Sat by Pulse 88 91 89 Oximetry 01/04/18 01/04/18 01/04/18 07:00 07:15 07:30 Temperature Pulse Rate 111 H 112 H 113 H Pulse Rate [ Anterior Bilateral Throughout] Pulse Rate [ From Monitor] Pulse Rate [ Right Dorsalis Pedis] Respiratory 27 H 26 H 25 H Rate Respiratory Rate [Anterior Bilateral Throughout] Blood Pressure 123/80 126/83 123/81 O2 Sat by Pulse 93 90 92 Oximetry 01/04/18 01/04/18 01/04/18 07:45 08:00 08:15 Temperature 97.8 F Pulse Rate 114 H 116 H 115 H Pulse Rate [ Anterior Bilateral Throughout] Pulse Rate [ 117 H From Monitor] Pulse Rate [ Right Dorsalis Pedis] Respiratory 26 H 20 25 H Rate Respiratory Rate [Anterior Bilateral Throughout] Blood Pressure 128/82 129/80 130/80 O2 Sat by Pulse 92 99 94 Oximetry 01/04/18 01/04/18 01/04/18 08:30 08:45 08:59 Temperature Pulse Rate 115 H 115 H Pulse Rate [ 115 H Anterior Bilateral Throughout] Pulse Rate [ From Monitor] Pulse Rate [ Right Dorsalis Pedis] Respiratory 24 24 Rate Respiratory 20 Rate [Anterior Bilateral Throughout] Blood Pressure 125/79 124/78 O2 Sat by Pulse 92 92 Oximetry 01/04/18 01/04/18 01/04/18 09:00 09:15 09:30 Temperature Pulse Rate 120 H 117 H 118 H Pulse Rate [ Anterior Bilateral Throughout] Pulse Rate [ From Monitor] Pulse Rate [ Right Dorsalis Pedis] Respiratory 18 18 17 Rate Respiratory Rate [Anterior Bilateral Throughout] Blood Pressure 113/73 108/72 124/83 O2 Sat by Pulse 100 99 98 Oximetry 01/04/18 01/04/18 01/04/18 09:45 10:00 10:15 Temperature Pulse Rate 116 H 116 H 116 H Pulse Rate [ Anterior Bilateral Throughout] Pulse Rate [ From Monitor] Pulse Rate [ Right Dorsalis Pedis] Respiratory 17 18 31 H Rate Respiratory Rate [Anterior Bilateral Throughout] Blood Pressure 123/76 127/84 132/81 O2 Sat by Pulse 100 100 95 Oximetry 01/04/18 01/04/18 10:30 10:45 Temperature Pulse Rate 121 H 119 H Pulse Rate [ Anterior Bilateral Throughout] Pulse Rate [ From Monitor] Pulse Rate [ Right Dorsalis Pedis] Respiratory 31 H 28 H Rate Respiratory Rate [Anterior Bilateral Throughout] Blood Pressure 139/86 125/82 O2 Sat by Pulse 91 91 Oximetry Constitutional: no acute distress, asleep Eyes: non-icteric ENT: oropharynx moist, other (ETT at 24. ) Neck: no JVD Effort: normal Ascultation: Bilateral: clear, diminished breath sounds, rhonchi (sporadic), other (coarse BS bilaterally) Cardiovascular: regular rate and rhythm, other (tachycardic) Gastrointestinal: hypoactive bowel sounds, non-tender, other (abdominal obesity) Integumentary: normal Extremities: no cyanosis, no ischemia or petechiae Neurologic: non-focal exam, pupils equal and round, CN II-XII normal Psychiatric: mood appropriate CBC and BMP: 01/04/18 06:12 01/04/18 06:12 ABG, PT/INR, D-dimer: ABG POC ABG pH 7.503 (7.35-7.45) H 12/25/17 03:38 ABG pH 7.498 pH Units (7.350-7.450) H 01/04/18 04:01 POC ABG pCO2 35.8 (35-45) 12/25/17 03:38 ABG pCO2 39.6 mm Hg 01/04/18 04:01 POC ABG pO2 66 (80-105) L 12/25/17 03:38 ABG pO2 129.5 mm Hg (80.0-90.0) H 01/04/18 04:01 POC ABG HCO3 28.1 12/25/17 03:38 POC ABG Total CO2 29 12/25/17 03:38 POC ABG O2 Sat 95 12/25/17 03:38 ABG O2 Saturation 98.7 % (95.0-99.0) 01/04/18 04:01 PT/INR, D-dimer PT 14.9 Sec. (12.2-14.9) 12/15/17 04:05 INR 1.11 (0.87-1.13) 12/15/17 04:05 Abnormal lab findings: Abnormal Labs 12/12/17 12/12/17 12/12/17 18:57 19:02 19:02 WBC RBC Hgb Hct MCV 96 H MCH 34 H MCHC 35 H RDW Plt Count 46 L Lymph % (Auto) Eos % (Auto) [place] # Eos # Baso # Seg Neutrophils % Seg Neuts % (Manual) 77.0 H Lymphocytes % (Manual) 13.0 L Monocytes % (Manual) Eosinophils % (Manual) Nucleated RBC % Seg Neutrophils # Seg Neutrophils # Man Lymphocytes # (Manual) 0.9 L Monocytes # (Manual) Eosinophils # (Manual) APTT POC ABG pH ABG pH POC ABG pCO2 POC ABG pO2 ABG pO2 ABG HCO3 ABG O2 Saturation ABG Base Excess ABG Hemoglobin VBG pH Oxyhemoglobin Sodium Potassium Chloride Carbon Dioxide BUN Creatinine Glucose POC Glucose 321 H Lactic Acid 4.00 H* Calcium Phosphorus Total Bilirubin AST ALT C-Reactive Protein Total Protein Albumin Triglycerides Amylase Lipase Urine WBC (Auto) Vancomycin Trough Crossmatch 12/12/17 12/12/17 12/12/17 19:02 19:18 20:55 WBC RBC Hgb Hct MCV MCH MCHC RDW Plt Count Lymph % (Auto) Eos % (Auto) [place] # Eos # Baso # Seg Neutrophils % Seg Neuts % (Manual) Lymphocytes % (Manual) Monocytes % (Manual) Eosinophils % (Manual) Nucleated RBC % Seg Neutrophils # Seg Neutrophils # Man Lymphocytes # (Manual) Monocytes # (Manual) Eosinophils # (Manual) APTT POC ABG pH ABG pH POC ABG pCO2 POC ABG pO2 ABG pO2 ABG HCO3 ABG O2 Saturation ABG Base Excess ABG Hemoglobin VBG pH 7.472 H Oxyhemoglobin Sodium 124 L Potassium Chloride 80.0 L Carbon Dioxide 20 L BUN Creatinine Glucose 382 H POC Glucose 283 H Lactic Acid Calcium 8.1 L Phosphorus Total Bilirubin 4.60 H AST 93 H ALT 112 H C-Reactive Protein Total Protein Albumin 2.5 L Triglycerides Amylase Lipase Urine WBC (Auto) Vancomycin Trough Crossmatch 12/12/17 12/13/17 12/13/17 21:41 00:45 01:29 WBC RBC Hgb Hct MCV MCH MCHC RDW Plt Count Lymph % (Auto) Eos % (Auto) [place] # Eos # Baso # Seg Neutrophils % Seg Neuts % (Manual) Lymphocytes % (Manual) Monocytes % (Manual) Eosinophils % (Manual) Nucleated RBC % Seg Neutrophils # Seg Neutrophils # Man Lymphocytes # (Manual) Monocytes # (Manual) Eosinophils # (Manual) APTT POC ABG pH ABG pH POC ABG pCO2 POC ABG pO2 ABG pO2 ABG HCO3 ABG O2 Saturation ABG Base Excess ABG Hemoglobin VBG pH Oxyhemoglobin Sodium Potassium Chloride Carbon Dioxide BUN Creatinine Glucose POC Glucose Lactic Acid 4.20 H* 2.70 H* 3.30 H* Calcium Phosphorus Total Bilirubin AST ALT C-Reactive Protein Total Protein Albumin Triglycerides Amylase Lipase Urine WBC (Auto) Vancomycin Trough Crossmatch 12/13/17 12/13/17 12/13/17 02:19 03:44 05:58 WBC RBC Hgb Hct MCV 97 H MCH 34 H MCHC 35 H RDW Plt Count 41 L Lymph % (Auto) Eos % (Auto) [place] # Eos # Baso # Seg Neutrophils % Seg Neuts % (Manual) Lymphocytes % (Manual) 8.0 L Monocytes % (Manual) 8.0 H Eosinophils % (Manual) Nucleated RBC % Seg Neutrophils # Seg Neutrophils # Man Lymphocytes # (Manual) 0.6 L Monocytes # (Manual) Eosinophils # (Manual) APTT POC ABG pH 7.334 L ABG pH POC ABG pCO2 POC ABG pO2 43 L ABG pO2 ABG HCO3 ABG O2 Saturation ABG Base Excess ABG Hemoglobin VBG pH Oxyhemoglobin Sodium Potassium Chloride Carbon Dioxide BUN Creatinine Glucose POC Glucose Lactic Acid 2.60 H* Calcium Phosphorus Total Bilirubin AST ALT C-Reactive Protein Total Protein Albumin Triglycerides Amylase Lipase Urine WBC (Auto) Vancomycin Trough Crossmatch 12/13/17 12/13/17 12/13/17 05:58 05:58 05:58 WBC RBC Hgb Hct MCV MCH MCHC RDW Plt Count Lymph % (Auto) Eos % (Auto) [place] # Eos # Baso # Seg Neutrophils % Seg Neuts % (Manual) Lymphocytes % (Manual) Monocytes % (Manual) Eosinophils % (Manual) Nucleated RBC % Seg Neutrophils # Seg Neutrophils # Man Lymphocytes # (Manual) Monocytes # (Manual) Eosinophils # (Manual) APTT POC ABG pH ABG pH POC ABG pCO2 POC ABG pO2 ABG pO2 ABG HCO3 ABG O2 Saturation ABG Base Excess ABG Hemoglobin VBG pH Oxyhemoglobin Sodium 132 L D Potassium Chloride 90.0 L Carbon Dioxide 20 L BUN Creatinine Glucose 346 H POC Glucose 298 H Lactic Acid 4.50 H* Calcium 8.2 L Phosphorus Total Bilirubin AST ALT C-Reactive Protein Total Protein Albumin Triglycerides Amylase Lipase Urine WBC (Auto) Vancomycin Trough Crossmatch 12/13/17 12/13/17 12/13/17 06:27 09:42 11:47 WBC RBC Hgb Hct MCV MCH MCHC RDW Plt Count Lymph % (Auto) Eos % (Auto) [place] # Eos # Baso # Seg Neutrophils % Seg Neuts % (Manual) Lymphocytes % (Manual) Monocytes % (Manual) Eosinophils % (Manual) Nucleated RBC % Seg Neutrophils # Seg Neutrophils # Man Lymphocytes # (Manual) Monocytes # (Manual) Eosinophils # (Manual) APTT POC ABG pH 7.267 L 7.298 L ABG pH POC ABG pCO2 50.4 H 51.3 H POC ABG pO2 47 L 43 L ABG pO2 ABG HCO3 ABG O2 Saturation ABG Base Excess ABG Hemoglobin VBG pH Oxyhemoglobin Sodium Potassium Chloride Carbon Dioxide BUN Creatinine Glucose POC Glucose 376 H Lactic Acid Calcium Phosphorus Total Bilirubin AST ALT C-Reactive Protein Total Protein Albumin Triglycerides Amylase Lipase Urine WBC (Auto) Vancomycin Trough Crossmatch 12/13/17 12/13/17 12/13/17 12:03 13:47 13:47 WBC RBC Hgb Hct MCV MCH MCHC RDW Plt Count Lymph % (Auto) Eos % (Auto) [place] # Eos # Baso # Seg Neutrophils % Seg Neuts % (Manual) Lymphocytes % (Manual) Monocytes % (Manual) Eosinophils % (Manual) Nucleated RBC % Seg Neutrophils # Seg Neutrophils # Man Lymphocytes # (Manual) Monocytes # (Manual) Eosinophils # (Manual) APTT POC ABG pH 7.264 L ABG pH POC ABG pCO2 54.9 H POC ABG pO2 55 L ABG pO2 ABG HCO3 ABG O2 Saturation ABG Base Excess ABG Hemoglobin VBG pH Oxyhemoglobin Sodium Potassium Chloride Carbon Dioxide BUN Creatinine Glucose POC Glucose Lactic Acid 2.80 H* Calcium Phosphorus Total Bilirubin AST ALT C-Reactive Protein Total Protein Albumin Triglycerides Amylase 20 L Lipase 9 L Urine WBC (Auto) Vancomycin Trough Crossmatch 12/13/17 12/13/17 12/13/17 15:36 17:39 21:47 WBC RBC Hgb Hct MCV MCH MCHC RDW Plt Count Lymph % (Auto) Eos % (Auto) [place] # Eos # Baso # Seg Neutrophils % Seg Neuts % (Manual) Lymphocytes % (Manual) Monocytes % (Manual) Eosinophils % (Manual) Nucleated RBC % Seg Neutrophils # Seg Neutrophils # Man Lymphocytes # (Manual) Monocytes # (Manual) Eosinophils # (Manual) APTT POC ABG pH 7.229 L 7.225 L ABG pH POC ABG pCO2 60.9 H 66.3 H POC ABG pO2 42 L 41 L ABG pO2 ABG HCO3 ABG O2 Saturation ABG Base Excess ABG Hemoglobin VBG pH Oxyhemoglobin Sodium Potassium Chloride Carbon Dioxide BUN Creatinine Glucose POC Glucose 289 H Lactic Acid Calcium Phosphorus Total Bilirubin AST ALT C-Reactive Protein Total Protein Albumin Triglycerides Amylase Lipase Urine WBC (Auto) Vancomycin Trough Crossmatch 12/13/17 12/14/17 12/14/17 22:19 02:03 05:16 WBC RBC Hgb Hct MCV MCH MCHC RDW Plt Count Lymph % (Auto) Eos % (Auto) [place] # Eos # Baso # Seg Neutrophils % Seg Neuts % (Manual) Lymphocytes % (Manual) Monocytes % (Manual) Eosinophils % (Manual) Nucleated RBC % Seg Neutrophils # Seg Neutrophils # Man Lymphocytes # (Manual) Monocytes # (Manual) Eosinophils # (Manual) APTT POC ABG pH 7.247 L ABG pH POC ABG pCO2 61.2 H POC ABG pO2 53 L ABG pO2 ABG HCO3 ABG O2 Saturation ABG Base Excess ABG Hemoglobin VBG pH Oxyhemoglobin Sodium Potassium Chloride Carbon Dioxide BUN Creatinine Glucose POC Glucose 274 H 295 H Lactic Acid Calcium Phosphorus Total Bilirubin AST ALT C-Reactive Protein Total Protein Albumin Triglycerides Amylase Lipase Urine WBC (Auto) Vancomycin Trough Crossmatch 12/14/17 12/14/17 12/14/17 05:32 12:04 16:22 WBC RBC Hgb Hct MCV MCH MCHC RDW Plt Count Lymph % (Auto) Eos % (Auto) [place] # Eos # Baso # Seg Neutrophils % Seg Neuts % (Manual) Lymphocytes % (Manual) Monocytes % (Manual) Eosinophils % (Manual) Nucleated RBC % Seg Neutrophils # Seg Neutrophils # Man Lymphocytes # (Manual) Monocytes # (Manual) Eosinophils # (Manual) APTT POC ABG pH ABG pH POC ABG pCO2 POC ABG pO2 ABG pO2 ABG HCO3 ABG O2 Saturation ABG Base Excess ABG Hemoglobin VBG pH Oxyhemoglobin Sodium Potassium Chloride Carbon Dioxide BUN Creatinine Glucose POC Glucose 230 H 241 H 231 H Lactic Acid Calcium Phosphorus Total Bilirubin AST ALT C-Reactive Protein Total Protein Albumin Triglycerides Amylase Lipase Urine WBC (Auto) Vancomycin Trough Crossmatch 12/14/17 12/15/17 12/15/17 21:29 02:29 03:25 WBC RBC Hgb Hct MCV MCH MCHC RDW Plt Count Lymph % (Auto) Eos % (Auto) [place] # Eos # Baso # Seg Neutrophils % Seg Neuts % (Manual) Lymphocytes % (Manual) Monocytes % (Manual) Eosinophils % (Manual) Nucleated RBC % Seg Neutrophils # Seg Neutrophils # Man Lymphocytes # (Manual) Monocytes # (Manual) Eosinophils # (Manual) APTT POC ABG pH 7.330 L ABG pH POC ABG pCO2 55.3 H POC ABG pO2 59 L ABG pO2 ABG HCO3 ABG O2 Saturation ABG Base Excess ABG Hemoglobin VBG pH Oxyhemoglobin Sodium Potassium Chloride Carbon Dioxide BUN Creatinine Glucose POC Glucose 258 H 246 H Lactic Acid Calcium Phosphorus Total Bilirubin AST ALT C-Reactive Protein Total Protein Albumin Triglycerides Amylase Lipase Urine WBC (Auto) Vancomycin Trough Crossmatch 12/15/17 12/15/17 12/15/17 04:05 04:05 04:05 WBC 15.0 H RBC 3.40 L Hgb 11.3 L D Hct 33.8 L D MCV 100 H MCH 33 H MCHC RDW Plt Count 48 L Lymph % (Auto) Eos % (Auto) [place] # Eos # Baso # Seg Neutrophils % Seg Neuts % (Manual) Lymphocytes % (Manual) 3.0 L Monocytes % (Manual) Eosinophils % (Manual) Nucleated RBC % 2.0 H Seg Neutrophils # Seg Neutrophils # Man Lymphocytes # (Manual) 0.5 L Monocytes # (Manual) 0.9 H Eosinophils # (Manual) APTT 20.9 L POC ABG pH ABG pH POC ABG pCO2 POC ABG pO2 ABG pO2 ABG HCO3 ABG O2 Saturation ABG Base Excess ABG Hemoglobin VBG pH Oxyhemoglobin Sodium Potassium Chloride Carbon Dioxide BUN 27 H Creatinine Glucose 258 H POC Glucose Lactic Acid Calcium 8.1 L Phosphorus Total Bilirubin AST ALT C-Reactive Protein Total Protein Albumin Triglycerides Amylase Lipase Urine WBC (Auto) Vancomycin Trough Crossmatch 12/15/17 12/15/17 12/15/17 05:32 11:17 14:59 WBC RBC Hgb Hct MCV MCH MCHC RDW Plt Count Lymph % (Auto) Eos % (Auto) [place] # Eos # Baso # Seg Neutrophils % Seg Neuts % (Manual) Lymphocytes % (Manual) Monocytes % (Manual) Eosinophils % (Manual) Nucleated RBC % Seg Neutrophils # Seg Neutrophils # Man Lymphocytes # (Manual) Monocytes # (Manual) Eosinophils # (Manual) APTT POC ABG pH ABG pH POC ABG pCO2 POC ABG pO2 ABG pO2 ABG HCO3 ABG O2 Saturation ABG Base Excess ABG Hemoglobin VBG pH Oxyhemoglobin Sodium Potassium Chloride Carbon Dioxide BUN Creatinine Glucose POC Glucose 247 H 268 H 233 H Lactic Acid Calcium Phosphorus Total Bilirubin AST ALT C-Reactive Protein Total Protein Albumin Triglycerides Amylase Lipase Urine WBC (Auto) Vancomycin Trough Crossmatch 12/15/17 12/15/17 12/15/17 17:00 18:59 21:37 WBC RBC Hgb Hct MCV MCH MCHC RDW Plt Count Lymph % (Auto) Eos % (Auto) [place] # Eos # Baso # Seg Neutrophils % Seg Neuts % (Manual) Lymphocytes % (Manual) Monocytes % (Manual) Eosinophils % (Manual) Nucleated RBC % Seg Neutrophils # Seg Neutrophils # Man Lymphocytes # (Manual) Monocytes # (Manual) Eosinophils # (Manual) APTT POC ABG pH ABG pH POC ABG pCO2 POC ABG pO2 ABG pO2 ABG HCO3 ABG O2 Saturation ABG Base Excess ABG Hemoglobin VBG pH Oxyhemoglobin Sodium Potassium Chloride Carbon Dioxide BUN Creatinine Glucose POC Glucose 195 H 208 H Lactic Acid Calcium Phosphorus Total Bilirubin AST ALT C-Reactive Protein Total Protein Albumin Triglycerides Amylase Lipase Urine WBC (Auto) 38.0 H Vancomycin Trough Crossmatch 12/16/17 12/16/17 12/16/17 03:17 03:33 04:18 WBC 16.4 H RBC 3.50 L Hgb 11.3 L Hct 35.4 L MCV 101 H MCH MCHC RDW Plt Count 54 L Lymph % (Auto) Eos % (Auto) [place] # Eos # Baso # Seg Neutrophils % Seg Neuts % (Manual) Lymphocytes % (Manual) Monocytes % (Manual) Eosinophils % (Manual) Nucleated RBC % Seg Neutrophils # Seg Neutrophils # Man Lymphocytes # (Manual) Monocytes # (Manual) Eosinophils # (Manual) APTT POC ABG pH ABG pH POC ABG pCO2 47.7 H POC ABG pO2 ABG pO2 ABG HCO3 ABG O2 Saturation ABG Base Excess ABG Hemoglobin VBG pH Oxyhemoglobin Sodium Potassium Chloride Carbon Dioxide BUN Creatinine Glucose POC Glucose 227 H Lactic Acid Calcium Phosphorus Total Bilirubin AST ALT C-Reactive Protein Total Protein Albumin Triglycerides Amylase Lipase Urine WBC (Auto) Vancomycin Trough Crossmatch 12/16/17 12/16/17 12/16/17 04:18 05:08 10:01 WBC RBC Hgb Hct MCV MCH MCHC RDW Plt Count Lymph % (Auto) Eos % (Auto) [place] # Eos # Baso # Seg Neutrophils % Seg Neuts % (Manual) Lymphocytes % (Manual) Monocytes % (Manual) Eosinophils % (Manual) Nucleated RBC % Seg Neutrophils # Seg Neutrophils # Man Lymphocytes # (Manual) Monocytes # (Manual) Eosinophils # (Manual) APTT POC ABG pH ABG pH POC ABG pCO2 POC ABG pO2 ABG pO2 ABG HCO3 ABG O2 Saturation ABG Base Excess ABG Hemoglobin VBG pH Oxyhemoglobin Sodium 147 H Potassium Chloride 107.4 H Carbon Dioxide BUN 28 H Creatinine Glucose 240 H POC Glucose 227 H 190 H Lactic Acid Calcium 8.3 L Phosphorus Total Bilirubin AST ALT C-Reactive Protein Total Protein Albumin Triglycerides Amylase Lipase Urine WBC (Auto) Vancomycin Trough Crossmatch 12/16/17 12/16/17 12/16/17 14:15 17:51 21:14 WBC RBC Hgb Hct MCV MCH MCHC RDW Plt Count Lymph % (Auto) Eos % (Auto) [place] # Eos # Baso # Seg Neutrophils % Seg Neuts % (Manual) Lymphocytes % (Manual) Monocytes % (Manual) Eosinophils % (Manual) Nucleated RBC % Seg Neutrophils # Seg Neutrophils # Man Lymphocytes # (Manual) Monocytes # (Manual) Eosinophils # (Manual) APTT POC ABG pH ABG pH POC ABG pCO2 POC ABG pO2 ABG pO2 ABG HCO3 ABG O2 Saturation ABG Base Excess ABG Hemoglobin VBG pH Oxyhemoglobin Sodium Potassium Chloride Carbon Dioxide BUN Creatinine Glucose POC Glucose 279 H 272 H 260 H Lactic Acid Calcium Phosphorus Total Bilirubin AST ALT C-Reactive Protein Total Protein Albumin Triglycerides Amylase Lipase Urine WBC (Auto) Vancomycin Trough Crossmatch 12/17/17 12/17/17 12/17/17 02:41 04:28 04:28 WBC 19.1 H RBC 3.50 L Hgb 11.4 L Hct 35.3 L MCV 101 H MCH 33 H MCHC RDW Plt Count 65 L Lymph % (Auto) Eos % (Auto) [place] # Eos # Baso # Seg Neutrophils % Seg Neuts % (Manual) Lymphocytes % (Manual) Monocytes % (Manual) Eosinophils % (Manual) Nucleated RBC % Seg Neutrophils # Seg Neutrophils # Man Lymphocytes # (Manual) Monocytes # (Manual) Eosinophils # (Manual) APTT POC ABG pH ABG pH POC ABG pCO2 POC ABG pO2 ABG pO2 ABG HCO3 ABG O2 Saturation ABG Base Excess ABG Hemoglobin VBG pH Oxyhemoglobin Sodium 153 H Potassium Chloride 111.2 H Carbon Dioxide 31 H BUN 28 H Creatinine Glucose 248 H POC Glucose 300 H Lactic Acid Calcium Phosphorus Total Bilirubin AST ALT C-Reactive Protein Total Protein Albumin Triglycerides Amylase Lipase Urine WBC (Auto) Vancomycin Trough Crossmatch 12/17/17 12/17/17 12/17/17 05:15 05:38 10:16 WBC RBC Hgb Hct MCV MCH MCHC RDW Plt Count Lymph % (Auto) Eos % (Auto) [place] # Eos # Baso # Seg Neutrophils % Seg Neuts % (Manual) Lymphocytes % (Manual) Monocytes % (Manual) Eosinophils % (Manual) Nucleated RBC % Seg Neutrophils # Seg Neutrophils # Man Lymphocytes # (Manual) Monocytes # (Manual) Eosinophils # (Manual) APTT POC ABG pH ABG pH POC ABG pCO2 50.3 H POC ABG pO2 120 H ABG pO2 ABG HCO3 ABG O2 Saturation ABG Base Excess ABG Hemoglobin VBG pH Oxyhemoglobin Sodium Potassium Chloride Carbon Dioxide BUN Creatinine Glucose POC Glucose 231 H 196 H Lactic Acid Calcium Phosphorus Total Bilirubin AST ALT C-Reactive Protein Total Protein Albumin Triglycerides Amylase Lipase Urine WBC (Auto) Vancomycin Trough Crossmatch 12/17/17 12/17/17 12/17/17 14:22 18:14 21:35 WBC RBC Hgb Hct MCV MCH MCHC RDW Plt Count Lymph % (Auto) Eos % (Auto) [place] # Eos # Baso # Seg Neutrophils % Seg Neuts % (Manual) Lymphocytes % (Manual) Monocytes % (Manual) Eosinophils % (Manual) Nucleated RBC % Seg Neutrophils # Seg Neutrophils # Man Lymphocytes # (Manual) Monocytes # (Manual) Eosinophils # (Manual) APTT POC ABG pH ABG pH POC ABG pCO2 POC ABG pO2 ABG pO2 ABG HCO3 ABG O2 Saturation ABG Base Excess ABG Hemoglobin VBG pH Oxyhemoglobin Sodium Potassium Chloride Carbon Dioxide BUN Creatinine Glucose POC Glucose 234 H 215 H 159 H Lactic Acid Calcium Phosphorus Total Bilirubin AST ALT C-Reactive Protein Total Protein Albumin Triglycerides Amylase Lipase Urine WBC (Auto) Vancomycin Trough Crossmatch 12/18/17 12/18/17 12/18/17 00:53 02:58 06:03 WBC RBC Hgb Hct MCV MCH MCHC RDW Plt Count Lymph % (Auto) Eos % (Auto) [place] # Eos # Baso # Seg Neutrophils % Seg Neuts % (Manual) Lymphocytes % (Manual) Monocytes % (Manual) Eosinophils % (Manual) Nucleated RBC % Seg Neutrophils # Seg Neutrophils # Man Lymphocytes # (Manual) Monocytes # (Manual) Eosinophils # (Manual) APTT POC ABG pH ABG pH POC ABG pCO2 56.4 H POC ABG pO2 46 L ABG pO2 ABG HCO3 ABG O2 Saturation ABG Base Excess ABG Hemoglobin VBG pH Oxyhemoglobin Sodium Potassium Chloride Carbon Dioxide BUN Creatinine Glucose POC Glucose 176 H 143 H Lactic Acid Calcium Phosphorus Total Bilirubin AST ALT C-Reactive Protein Total Protein Albumin Triglycerides Amylase Lipase Urine WBC (Auto) Vancomycin Trough Crossmatch 12/18/17 12/18/17 12/18/17 07:59 09:20 09:20 WBC 27.4 H RBC 3.57 L Hgb 11.4 L Hct MCV 101 H MCH MCHC RDW Plt Count 64 L Lymph % (Auto) Eos % (Auto) [place] # Eos # Baso # Seg Neutrophils % Seg Neuts % (Manual) Lymphocytes % (Manual) Monocytes % (Manual) Eosinophils % (Manual) Nucleated RBC % Seg Neutrophils # Seg Neutrophils # Man Lymphocytes # (Manual) Monocytes # (Manual) Eosinophils # (Manual) APTT POC ABG pH ABG pH POC ABG pCO2 POC ABG pO2 ABG pO2 ABG HCO3 ABG O2 Saturation ABG Base Excess ABG Hemoglobin VBG pH Oxyhemoglobin Sodium 152 H Potassium Chloride 107.9 H Carbon Dioxide 34 H BUN 23 H Creatinine 0.7 L Glucose 181 H POC Glucose 197 H Lactic Acid Calcium Phosphorus Total Bilirubin AST ALT C-Reactive Protein Total Protein Albumin Triglycerides Amylase Lipase Urine WBC (Auto) Vancomycin Trough Crossmatch 12/18/17 12/18/17 12/18/17 10:22 15:03 18:15 WBC RBC Hgb Hct MCV MCH MCHC RDW Plt Count Lymph % (Auto) Eos % (Auto) [place] # Eos # Baso # Seg Neutrophils % Seg Neuts % (Manual) Lymphocytes % (Manual) Monocytes % (Manual) Eosinophils % (Manual) Nucleated RBC % Seg Neutrophils # Seg Neutrophils # Man Lymphocytes # (Manual) Monocytes # (Manual) Eosinophils # (Manual) APTT POC ABG pH ABG pH POC ABG pCO2 POC ABG pO2 ABG pO2 ABG HCO3 ABG O2 Saturation ABG Base Excess ABG Hemoglobin VBG pH Oxyhemoglobin Sodium Potassium Chloride Carbon Dioxide BUN Creatinine Glucose POC Glucose 195 H 225 H 238 H Lactic Acid Calcium Phosphorus Total Bilirubin AST ALT C-Reactive Protein Total Protein Albumin Triglycerides Amylase Lipase Urine WBC (Auto) Vancomycin Trough Crossmatch 12/18/17 12/18/17 12/19/17 18:29 21:53 00:18 WBC RBC Hgb Hct MCV MCH MCHC RDW Plt Count Lymph % (Auto) Eos % (Auto) [place] # Eos # Baso # Seg Neutrophils % Seg Neuts % (Manual) Lymphocytes % (Manual) Monocytes % (Manual) Eosinophils % (Manual) Nucleated RBC % Seg Neutrophils # Seg Neutrophils # Man Lymphocytes # (Manual) Monocytes # (Manual) Eosinophils # (Manual) APTT POC ABG pH 7.476 H ABG pH POC ABG pCO2 50.4 H POC ABG pO2 158 H ABG pO2 ABG HCO3 ABG O2 Saturation ABG Base Excess ABG Hemoglobin VBG pH Oxyhemoglobin Sodium Potassium Chloride Carbon Dioxide BUN Creatinine Glucose POC Glucose 231 H 263 H Lactic Acid Calcium Phosphorus Total Bilirubin AST ALT C-Reactive Protein Total Protein Albumin Triglycerides Amylase Lipase Urine WBC (Auto) Vancomycin Trough Crossmatch 12/19/17 12/19/17 12/19/17 02:09 04:07 04:07 WBC 25.9 H RBC 3.25 L Hgb 10.6 L Hct 32.8 L MCV 101 H MCH 33 H MCHC RDW Plt Count 67 L Lymph % (Auto) Eos % (Auto) [place] # Eos # Baso # Seg Neutrophils % Seg Neuts % (Manual) Lymphocytes % (Manual) 4.0 L Monocytes % (Manual) Eosinophils % (Manual) Nucleated RBC % Seg Neutrophils # Seg Neutrophils # Man 14.8 H Lymphocytes # (Manual) 1.0 L Monocytes # (Manual) Eosinophils # (Manual) APTT POC ABG pH ABG pH POC ABG pCO2 POC ABG pO2 ABG pO2 ABG HCO3 ABG O2 Saturation ABG Base Excess ABG Hemoglobin VBG pH Oxyhemoglobin Sodium 148 H Potassium Chloride Carbon Dioxide BUN 31 H Creatinine Glucose 314 H POC Glucose 300 H Lactic Acid Calcium 8.1 L Phosphorus Total Bilirubin AST ALT C-Reactive Protein Total Protein Albumin Triglycerides Amylase Lipase Urine WBC (Auto) Vancomycin Trough Crossmatch 12/19/17 12/19/17 12/19/17 05:15 05:41 07:57 WBC RBC Hgb Hct MCV MCH MCHC RDW Plt Count Lymph % (Auto) Eos % (Auto) [place] # Eos # Baso # Seg Neutrophils % Seg Neuts % (Manual) Lymphocytes % (Manual) Monocytes % (Manual) Eosinophils % (Manual) Nucleated RBC % Seg Neutrophils # Seg Neutrophils # Man Lymphocytes # (Manual) Monocytes # (Manual) Eosinophils # (Manual) APTT POC ABG pH 7.507 H ABG pH POC ABG pCO2 POC ABG pO2 ABG pO2 ABG HCO3 ABG O2 Saturation ABG Base Excess ABG Hemoglobin VBG pH Oxyhemoglobin Sodium Potassium Chloride Carbon Dioxide BUN Creatinine Glucose POC Glucose 331 H 307 H Lactic Acid Calcium Phosphorus Total Bilirubin AST ALT C-Reactive Protein Total Protein Albumin Triglycerides Amylase Lipase Urine WBC (Auto) Vancomycin Trough Crossmatch 12/19/17 12/19/17 12/19/17 10:21 14:48 17:59 WBC RBC Hgb Hct MCV MCH MCHC RDW Plt Count Lymph % (Auto) Eos % (Auto) [place] # Eos # Baso # Seg Neutrophils % Seg Neuts % (Manual) Lymphocytes % (Manual) Monocytes % (Manual) Eosinophils % (Manual) Nucleated RBC % Seg Neutrophils # Seg Neutrophils # Man Lymphocytes # (Manual) Monocytes # (Manual) Eosinophils # (Manual) APTT POC ABG pH ABG pH POC ABG pCO2 POC ABG pO2 ABG pO2 ABG HCO3 ABG O2 Saturation ABG Base Excess ABG Hemoglobin VBG pH Oxyhemoglobin Sodium Potassium Chloride Carbon Dioxide BUN Creatinine Glucose POC Glucose 358 H 327 H 355 H Lactic Acid Calcium Phosphorus Total Bilirubin AST ALT C-Reactive Protein Total Protein Albumin Triglycerides Amylase Lipase Urine WBC (Auto) Vancomycin Trough Crossmatch 12/19/17 12/20/17 12/20/17 21:38 02:21 03:42 WBC RBC Hgb Hct MCV MCH MCHC RDW Plt Count Lymph % (Auto) Eos % (Auto) [place] # Eos # Baso # Seg Neutrophils % Seg Neuts % (Manual) Lymphocytes % (Manual) Monocytes % (Manual) Eosinophils % (Manual) Nucleated RBC % Seg Neutrophils # Seg Neutrophils # Man Lymphocytes # (Manual) Monocytes # (Manual) Eosinophils # (Manual) APTT POC ABG pH 7.494 H ABG pH POC ABG pCO2 POC ABG pO2 ABG pO2 ABG HCO3 ABG O2 Saturation ABG Base Excess ABG Hemoglobin VBG pH Oxyhemoglobin Sodium Potassium Chloride Carbon Dioxide BUN Creatinine Glucose POC Glucose 329 H 354 H Lactic Acid Calcium Phosphorus Total Bilirubin AST ALT C-Reactive Protein Total Protein Albumin Triglycerides Amylase Lipase Urine WBC (Auto) Vancomycin Trough Crossmatch 12/20/17 12/20/17 12/20/17 04:08 04:08 04:08 WBC 22.7 H RBC 3.26 L Hgb 10.6 L Hct 32.9 L MCV 101 H MCH 33 H MCHC RDW Plt Count 78 L Lymph % (Auto) Eos % (Auto) [place] # Eos # Baso # Seg Neutrophils % Seg Neuts % (Manual) 80.0 H Lymphocytes % (Manual) 6.0 L Monocytes % (Manual) Eosinophils % (Manual) Nucleated RBC % Seg Neutrophils # Seg Neutrophils # Man 18.2 H Lymphocytes # (Manual) Monocytes # (Manual) Eosinophils # (Manual) APTT POC ABG pH ABG pH POC ABG pCO2 POC ABG pO2 ABG pO2 ABG HCO3 ABG O2 Saturation ABG Base Excess ABG Hemoglobin VBG pH Oxyhemoglobin Sodium Potassium Chloride Carbon Dioxide 31 H BUN 30 H Creatinine 0.6 L Glucose 365 H POC Glucose Lactic Acid Calcium Phosphorus Total Bilirubin AST ALT C-Reactive Protein Total Protein Albumin Triglycerides 981 H Amylase Lipase Urine WBC (Auto) Vancomycin Trough Crossmatch 12/20/17 12/20/17 12/20/17 05:15 10:47 13:40 WBC RBC Hgb Hct MCV MCH MCHC RDW Plt Count Lymph % (Auto) Eos % (Auto) [place] # Eos # Baso # Seg Neutrophils % Seg Neuts % (Manual) Lymphocytes % (Manual) Monocytes % (Manual) Eosinophils % (Manual) Nucleated RBC % Seg Neutrophils # Seg Neutrophils # Man Lymphocytes # (Manual) Monocytes # (Manual) Eosinophils # (Manual) APTT POC ABG pH ABG pH POC ABG pCO2 POC ABG pO2 ABG pO2 ABG HCO3 ABG O2 Saturation ABG Base Excess ABG Hemoglobin VBG pH Oxyhemoglobin Sodium Potassium Chloride Carbon Dioxide BUN Creatinine Glucose POC Glucose 342 H 330 H Lactic Acid Calcium Phosphorus Total Bilirubin AST ALT C-Reactive Protein 7.10 H Total Protein Albumin Triglycerides Amylase Lipase Urine WBC (Auto) Vancomycin Trough Crossmatch 12/20/17 12/20/17 12/20/17 13:40 14:52 16:55 WBC RBC Hgb Hct MCV MCH MCHC RDW Plt Count Lymph % (Auto) Eos % (Auto) [place] # Eos # Baso # Seg Neutrophils % Seg Neuts % (Manual) Lymphocytes % (Manual) Monocytes % (Manual) Eosinophils % (Manual) Nucleated RBC % Seg Neutrophils # Seg Neutrophils # Man Lymphocytes # (Manual) Monocytes # (Manual) Eosinophils # (Manual) APTT POC ABG pH 7.484 H ABG pH POC ABG pCO2 POC ABG pO2 ABG pO2 ABG HCO3 ABG O2 Saturation ABG Base Excess ABG Hemoglobin VBG pH Oxyhemoglobin Sodium Potassium Chloride Carbon Dioxide BUN Creatinine Glucose POC Glucose 293 H Lactic Acid Calcium Phosphorus Total Bilirubin AST ALT C-Reactive Protein Total Protein Albumin Triglycerides 1042 H Amylase Lipase Urine WBC (Auto) Vancomycin Trough Crossmatch 12/20/17 12/20/17 12/21/17 18:00 21:58 02:05 WBC RBC Hgb Hct MCV MCH MCHC RDW Plt Count Lymph % (Auto) Eos % (Auto) [place] # Eos # Baso # Seg Neutrophils % Seg Neuts % (Manual) Lymphocytes % (Manual) Monocytes % (Manual) Eosinophils % (Manual) Nucleated RBC % Seg Neutrophils # Seg Neutrophils # Man Lymphocytes # (Manual) Monocytes # (Manual) Eosinophils # (Manual) APTT POC ABG pH ABG pH POC ABG pCO2 POC ABG pO2 ABG pO2 ABG HCO3 ABG O2 Saturation ABG Base Excess ABG Hemoglobin VBG pH Oxyhemoglobin Sodium Potassium Chloride Carbon Dioxide BUN Creatinine Glucose POC Glucose 268 H 272 H 229 H Lactic Acid Calcium Phosphorus Total Bilirubin AST ALT C-Reactive Protein Total Protein Albumin Triglycerides Amylase Lipase Urine WBC (Auto) Vancomycin Trough Crossmatch 12/21/17 12/21/17 12/21/17 03:59 06:23 08:57 WBC RBC Hgb Hct MCV MCH MCHC RDW Plt Count Lymph % (Auto) Eos % (Auto) [place] # Eos # Baso # Seg Neutrophils % Seg Neuts % (Manual) Lymphocytes % (Manual) Monocytes % (Manual) Eosinophils % (Manual) Nucleated RBC % Seg Neutrophils # Seg Neutrophils # Man Lymphocytes # (Manual) Monocytes # (Manual) Eosinophils # (Manual) APTT POC ABG pH 7.474 H ABG pH POC ABG pCO2 POC ABG pO2 71 L ABG pO2 ABG HCO3 ABG O2 Saturation ABG Base Excess ABG Hemoglobin VBG pH Oxyhemoglobin Sodium Potassium Chloride Carbon Dioxide BUN Creatinine Glucose POC Glucose 182 H 217 H Lactic Acid Calcium Phosphorus Total Bilirubin AST ALT C-Reactive Protein Total Protein Albumin Triglycerides Amylase Lipase Urine WBC (Auto) Vancomycin Trough Crossmatch 12/21/17 12/21/17 12/21/17 13:59 18:00 21:20 WBC RBC Hgb Hct MCV MCH MCHC RDW Plt Count Lymph % (Auto) Eos % (Auto) [place] # Eos # Baso # Seg Neutrophils % Seg Neuts % (Manual) Lymphocytes % (Manual) Monocytes % (Manual) Eosinophils % (Manual) Nucleated RBC % Seg Neutrophils # Seg Neutrophils # Man Lymphocytes # (Manual) Monocytes # (Manual) Eosinophils # (Manual) APTT POC ABG pH ABG pH POC ABG pCO2 POC ABG pO2 ABG pO2 ABG HCO3 ABG O2 Saturation ABG Base Excess ABG Hemoglobin VBG pH Oxyhemoglobin Sodium Potassium Chloride Carbon Dioxide BUN Creatinine Glucose POC Glucose 185 H 176 H 187 H Lactic Acid Calcium Phosphorus Total Bilirubin AST ALT C-Reactive Protein Total Protein Albumin Triglycerides Amylase Lipase Urine WBC (Auto) Vancomycin Trough Crossmatch 12/21/17 12/22/1718 23:48 04:39 05:30 WBC RBC Hgb Hct MCV MCH MCHC RDW Plt Count Lymph % (Auto) Eos % (Auto) [place] # Eos # Baso # Seg Neutrophils % Seg Neuts % (Manual) Lymphocytes % (Manual) Monocytes % (Manual) Eosinophils % (Manual) Nucleated RBC % Seg Neutrophils # Seg Neutrophils # Man Lymphocytes # (Manual) Monocytes # (Manual) Eosinophils # (Manual) APTT POC ABG pH 7.528 H ABG pH POC ABG pCO2 POC ABG pO2 63 L ABG pO2 ABG HCO3 ABG O2 Saturation ABG Base Excess ABG Hemoglobin VBG pH Oxyhemoglobin Sodium Potassium Chloride Carbon Dioxide BUN Creatinine Glucose POC Glucose 126 H 117 H Lactic Acid Calcium Phosphorus Total Bilirubin AST ALT C-Reactive Protein Total Protein Albumin Triglycerides Amylase Lipase Urine WBC (Auto) Vancomycin Trough Crossmatch 12/22/17 12/22/17 12/22/17 09:12 10:34 10:34 WBC 29.5 H RBC 3.44 L Hgb 11.2 L Hct 34.2 L MCV 99 H MCH 33 H MCHC RDW 13.1 L Plt Count 97 L Lymph % (Auto) Eos % (Auto) [place] # Eos # Baso # Seg Neutrophils % Seg Neuts % (Manual) 88.0 H Lymphocytes % (Manual) 5.0 L Monocytes % (Manual) Eosinophils % (Manual) Nucleated RBC % Seg Neutrophils # Seg Neutrophils # Man 26.0 H Lymphocytes # (Manual) Monocytes # (Manual) Eosinophils # (Manual) APTT POC ABG pH ABG pH POC ABG pCO2 POC ABG pO2 ABG pO2 ABG HCO3 ABG O2 Saturation ABG Base Excess ABG Hemoglobin VBG pH Oxyhemoglobin Sodium 146 H Potassium 3.1 L Chloride Carbon Dioxide BUN 25 H Creatinine 0.7 L Glucose 146 H POC Glucose 168 H Lactic Acid Calcium 8.1 L Phosphorus Total Bilirubin AST ALT C-Reactive Protein Total Protein Albumin Triglycerides Amylase Lipase Urine WBC (Auto) Vancomycin Trough Crossmatch 12/22/17 12/22/17 12/22/17 14:51 17:21 21:43 WBC RBC Hgb Hct MCV MCH MCHC RDW Plt Count Lymph % (Auto) Eos % (Auto) [place] # Eos # Baso # Seg Neutrophils % Seg Neuts % (Manual) Lymphocytes % (Manual) Monocytes % (Manual) Eosinophils % (Manual) Nucleated RBC % Seg Neutrophils # Seg Neutrophils # Man Lymphocytes # (Manual) Monocytes # (Manual) Eosinophils # (Manual) APTT POC ABG pH ABG pH POC ABG pCO2 POC ABG pO2 ABG pO2 ABG HCO3 ABG O2 Saturation ABG Base Excess ABG Hemoglobin VBG pH Oxyhemoglobin Sodium Potassium Chloride Carbon Dioxide BUN Creatinine Glucose POC Glucose 125 H 110 H 153 H Lactic Acid Calcium Phosphorus Total Bilirubin AST ALT C-Reactive Protein Total Protein Albumin Triglycerides Amylase Lipase Urine WBC (Auto) Vancomycin Trough Crossmatch 12/23/17 12/23/17 12/23/17 04:33 05:28 09:25 WBC 31.4 H RBC 3.05 L Hgb 9.8 L Hct 30.2 L MCV 99 H MCH MCHC RDW 12.9 L Plt Count 101 L Lymph % (Auto) Eos % (Auto) [place] # Eos # Baso # Seg Neutrophils % Seg Neuts % (Manual) 97 H Lymphocytes % (Manual) 2 L Monocytes % (Manual) Eosinophils % (Manual) Nucleated RBC % Seg Neutrophils # Seg Neutrophils # Man 31.1 H Lymphocytes # (Manual) 0.5 L Monocytes # (Manual) Eosinophils # (Manual) APTT POC ABG pH 7.573 H ABG pH POC ABG pCO2 31.0 L POC ABG pO2 63 L ABG pO2 ABG HCO3 ABG O2 Saturation ABG Base Excess ABG Hemoglobin VBG pH Oxyhemoglobin Sodium Potassium Chloride Carbon Dioxide BUN Creatinine Glucose POC Glucose 124 H Lactic Acid Calcium Phosphorus Total Bilirubin AST ALT C-Reactive Protein Total Protein Albumin Triglycerides Amylase Lipase Urine WBC (Auto) Vancomycin Trough Crossmatch 12/23/17 12/23/17 12/23/17 09:25 10:08 14:20 WBC RBC Hgb Hct MCV MCH MCHC RDW Plt Count Lymph % (Auto) Eos % (Auto) [place] # Eos # Baso # Seg Neutrophils % Seg Neuts % (Manual) Lymphocytes % (Manual) Monocytes % (Manual) Eosinophils % (Manual) Nucleated RBC % Seg Neutrophils # Seg Neutrophils # Man Lymphocytes # (Manual) Monocytes # (Manual) Eosinophils # (Manual) APTT POC ABG pH ABG pH POC ABG pCO2 POC ABG pO2 ABG pO2 ABG HCO3 ABG O2 Saturation ABG Base Excess ABG Hemoglobin VBG pH Oxyhemoglobin Sodium Potassium 3.1 L Chloride Carbon Dioxide BUN Creatinine 0.6 L Glucose 169 H POC Glucose 171 H 211 H Lactic Acid Calcium 7.9 L Phosphorus Total Bilirubin AST ALT C-Reactive Protein Total Protein Albumin Triglycerides Amylase Lipase Urine WBC (Auto) Vancomycin Trough Crossmatch 12/23/17 12/23/17 12/24/17 18:59 21:49 01:47 WBC RBC Hgb Hct MCV MCH MCHC RDW Plt Count Lymph % (Auto) Eos % (Auto) [place] # Eos # Baso # Seg Neutrophils % Seg Neuts % (Manual) Lymphocytes % (Manual) Monocytes % (Manual) Eosinophils % (Manual) Nucleated RBC % Seg Neutrophils # Seg Neutrophils # Man Lymphocytes # (Manual) Monocytes # (Manual) Eosinophils # (Manual) APTT POC ABG pH ABG pH POC ABG pCO2 POC ABG pO2 ABG pO2 ABG HCO3 ABG O2 Saturation ABG Base Excess ABG Hemoglobin VBG pH Oxyhemoglobin Sodium Potassium Chloride Carbon Dioxide BUN Creatinine Glucose POC Glucose 175 H 146 H 143 H Lactic Acid Calcium Phosphorus Total Bilirubin AST ALT C-Reactive Protein Total Protein Albumin Triglycerides Amylase Lipase Urine WBC (Auto) Vancomycin Trough Crossmatch 12/24/17 12/24/17 12/24/17 05:40 10:12 13:12 WBC RBC Hgb Hct MCV MCH MCHC RDW Plt Count Lymph % (Auto) Eos % (Auto) [place] # Eos # Baso # Seg Neutrophils % Seg Neuts % (Manual) Lymphocytes % (Manual) Monocytes % (Manual) Eosinophils % (Manual) Nucleated RBC % Seg Neutrophils # Seg Neutrophils # Man Lymphocytes # (Manual) Monocytes # (Manual) Eosinophils # (Manual) APTT POC ABG pH 7.558 H ABG pH POC ABG pCO2 27.6 L POC ABG pO2 71 L ABG pO2 ABG HCO3 ABG O2 Saturation ABG Base Excess ABG Hemoglobin VBG pH Oxyhemoglobin Sodium Potassium Chloride Carbon Dioxide BUN Creatinine Glucose POC Glucose 118 H 111 H Lactic Acid Calcium Phosphorus Total Bilirubin AST ALT C-Reactive Protein Total Protein Albumin Triglycerides Amylase Lipase Urine WBC (Auto) Vancomycin Trough Crossmatch 12/24/17 12/24/17 12/24/17 16:26 20:44 21:49 WBC RBC Hgb Hct MCV MCH MCHC RDW Plt Count Lymph % (Auto) Eos % (Auto) [place] # Eos # Baso # Seg Neutrophils % Seg Neuts % (Manual) Lymphocytes % (Manual) Monocytes % (Manual) Eosinophils % (Manual) Nucleated RBC % Seg Neutrophils # Seg Neutrophils # Man Lymphocytes # (Manual) Monocytes # (Manual) Eosinophils # (Manual) APTT POC ABG pH ABG pH POC ABG pCO2 POC ABG pO2 ABG pO2 ABG HCO3 ABG O2 Saturation ABG Base Excess ABG Hemoglobin VBG pH Oxyhemoglobin Sodium Potassium Chloride Carbon Dioxide BUN Creatinine Glucose POC Glucose 113 H 124 H 115 H Lactic Acid Calcium Phosphorus Total Bilirubin AST ALT C-Reactive Protein Total Protein Albumin Triglycerides Amylase Lipase Urine WBC (Auto) Vancomycin Trough Crossmatch 12/24/17 12/25/17 12/25/17 Unknown 02:26 03:38 WBC RBC Hgb Hct MCV MCH MCHC RDW Plt Count Lymph % (Auto) Eos % (Auto) [place] # Eos # Baso # Seg Neutrophils % Seg Neuts % (Manual) Lymphocytes % (Manual) Monocytes % (Manual) Eosinophils % (Manual) Nucleated RBC % Seg Neutrophils # Seg Neutrophils # Man Lymphocytes # (Manual) Monocytes # (Manual) Eosinophils # (Manual) APTT POC ABG pH 7.503 H ABG pH POC ABG pCO2 POC ABG pO2 66 L ABG pO2 ABG HCO3 ABG O2 Saturation ABG Base Excess ABG Hemoglobin VBG pH Oxyhemoglobin Sodium Potassium 3.0 L Chloride Carbon Dioxide BUN Creatinine 0.5 L Glucose 166 H POC Glucose 106 H Lactic Acid Calcium 7.8 L Phosphorus Total Bilirubin AST ALT C-Reactive Protein Total Protein Albumin Triglycerides Amylase Lipase Urine WBC (Auto) Vancomycin Trough Crossmatch 12/25/17 12/25/17 12/25/17 04:58 12:58 15:06 WBC RBC Hgb Hct MCV MCH MCHC RDW Plt Count Lymph % (Auto) Eos % (Auto) [place] # Eos # Baso # Seg Neutrophils % Seg Neuts % (Manual) Lymphocytes % (Manual) Monocytes % (Manual) Eosinophils % (Manual) Nucleated RBC % Seg Neutrophils # Seg Neutrophils # Man Lymphocytes # (Manual) Monocytes # (Manual) Eosinophils # (Manual) APTT POC ABG pH ABG pH POC ABG pCO2 POC ABG pO2 ABG pO2 ABG HCO3 ABG O2 Saturation ABG Base Excess ABG Hemoglobin VBG pH Oxyhemoglobin Sodium Potassium Chloride Carbon Dioxide BUN Creatinine Glucose POC Glucose 113 H 118 H Lactic Acid Calcium Phosphorus Total Bilirubin AST ALT C-Reactive Protein Total Protein Albumin Triglycerides Amylase Lipase Urine WBC (Auto) Vancomycin Trough 22.5 H Crossmatch 12/25/17 12/25/17 12/25/17 17:59 21:33 Unknown WBC 20.5 H RBC 2.75 L Hgb 9.1 L Hct 27.1 L MCV 99 H MCH 33 H MCHC RDW Plt Count 126 L Lymph % (Auto) Eos % (Auto) [place] # Eos # Baso # Seg Neutrophils % Seg Neuts % (Manual) 89.0 H Lymphocytes % (Manual) 6.0 L Monocytes % (Manual) Eosinophils % (Manual) Nucleated RBC % Seg Neutrophils # Seg Neutrophils # Man 18.2 H Lymphocytes # (Manual) Monocytes # (Manual) Eosinophils # (Manual) APTT POC ABG pH ABG pH POC ABG pCO2 POC ABG pO2 ABG pO2 ABG HCO3 ABG O2 Saturation ABG Base Excess ABG Hemoglobin VBG pH Oxyhemoglobin Sodium Potassium Chloride Carbon Dioxide BUN Creatinine Glucose POC Glucose 145 H 167 H Lactic Acid Calcium Phosphorus Total Bilirubin AST ALT C-Reactive Protein Total Protein Albumin Triglycerides Amylase Lipase Urine WBC (Auto) Vancomycin Trough Crossmatch 12/25/17 12/26/17 12/26/17 Unknown 02:26 05:29 WBC RBC Hgb Hct MCV MCH MCHC RDW Plt Count Lymph % (Auto) Eos % (Auto) [place] # Eos # Baso # Seg Neutrophils % Seg Neuts % (Manual) Lymphocytes % (Manual) Monocytes % (Manual) Eosinophils % (Manual) Nucleated RBC % Seg Neutrophils # Seg Neutrophils # Man Lymphocytes # (Manual) Monocytes # (Manual) Eosinophils # (Manual) APTT POC ABG pH ABG pH POC ABG pCO2 POC ABG pO2 ABG pO2 ABG HCO3 ABG O2 Saturation ABG Base Excess ABG Hemoglobin VBG pH Oxyhemoglobin Sodium Potassium 2.8 L* Chloride Carbon Dioxide BUN Creatinine 0.6 L Glucose POC Glucose 167 H 216 H Lactic Acid Calcium 7.4 L Phosphorus Total Bilirubin AST ALT C-Reactive Protein Total Protein Albumin Triglycerides Amylase Lipase Urine WBC (Auto) Vancomycin Trough Crossmatch 12/26/17 12/26/17 12/26/17 10:21 14:30 18:35 WBC RBC Hgb Hct MCV MCH MCHC RDW Plt Count Lymph % (Auto) Eos % (Auto) [place] # Eos # Baso # Seg Neutrophils % Seg Neuts % (Manual) Lymphocytes % (Manual) Monocytes % (Manual) Eosinophils % (Manual) Nucleated RBC % Seg Neutrophils # Seg Neutrophils # Man Lymphocytes # (Manual) Monocytes # (Manual) Eosinophils # (Manual) APTT POC ABG pH ABG pH POC ABG pCO2 POC ABG pO2 ABG pO2 ABG HCO3 ABG O2 Saturation ABG Base Excess ABG Hemoglobin VBG pH Oxyhemoglobin Sodium Potassium Chloride Carbon Dioxide BUN Creatinine Glucose POC Glucose 164 H 157 H 146 H Lactic Acid Calcium Phosphorus Total Bilirubin AST ALT C-Reactive Protein Total Protein Albumin Triglycerides Amylase Lipase Urine WBC (Auto) Vancomycin Trough Crossmatch 12/26/17 12/26/17 12/27/17 21:21 Unknown 01:54 WBC RBC Hgb Hct MCV MCH MCHC RDW Plt Count Lymph % (Auto) Eos % (Auto) [place] # Eos # Baso # Seg Neutrophils % Seg Neuts % (Manual) Lymphocytes % (Manual) Monocytes % (Manual) Eosinophils % (Manual) Nucleated RBC % Seg Neutrophils # Seg Neutrophils # Man Lymphocytes # (Manual) Monocytes # (Manual) Eosinophils # (Manual) APTT POC ABG pH ABG pH POC ABG pCO2 POC ABG pO2 ABG pO2 ABG HCO3 ABG O2 Saturation ABG Base Excess ABG Hemoglobin VBG pH Oxyhemoglobin Sodium Potassium 3.0 L Chloride Carbon Dioxide BUN Creatinine 0.5 L Glucose 166 H POC Glucose 132 H 157 H Lactic Acid Calcium 7.8 L Phosphorus Total Bilirubin AST ALT C-Reactive Protein Total Protein Albumin Triglycerides Amylase Lipase Urine WBC (Auto) Vancomycin Trough Crossmatch 12/27/17 12/27/17 12/27/17 05:20 05:20 05:44 WBC 26.4 H RBC 2.83 L Hgb 9.3 L Hct 27.6 L MCV 98 H MCH 33 H MCHC RDW Plt Count Lymph % (Auto) Eos % (Auto) [place] # Eos # Baso # Seg Neutrophils % Seg Neuts % (Manual) 85.0 H Lymphocytes % (Manual) 5.0 L Monocytes % (Manual) Eosinophils % (Manual) Nucleated RBC % Seg Neutrophils # Seg Neutrophils # Man 22.4 H Lymphocytes # (Manual) Monocytes # (Manual) Eosinophils # (Manual) 0.5 H APTT POC ABG pH ABG pH POC ABG pCO2 POC ABG pO2 ABG pO2 ABG HCO3 ABG O2 Saturation ABG Base Excess ABG Hemoglobin VBG pH Oxyhemoglobin Sodium Potassium 2.3 L* D Chloride Carbon Dioxide BUN 7 L Creatinine 0.6 L Glucose 123 H POC Glucose 128 H Lactic Acid Calcium 8.1 L Phosphorus Total Bilirubin AST ALT C-Reactive Protein Total Protein Albumin Triglycerides Amylase Lipase Urine WBC (Auto) Vancomycin Trough Crossmatch 12/27/17 12/27/17 12/27/17 10:04 14:44 15:30 WBC RBC Hgb Hct MCV MCH MCHC RDW Plt Count Lymph % (Auto) Eos % (Auto) [place] # Eos # Baso # Seg Neutrophils % Seg Neuts % (Manual) Lymphocytes % (Manual) Monocytes % (Manual) Eosinophils % (Manual) Nucleated RBC % Seg Neutrophils # Seg Neutrophils # Man Lymphocytes # (Manual) Monocytes # (Manual) Eosinophils # (Manual) APTT POC ABG pH ABG pH POC ABG pCO2 POC ABG pO2 ABG pO2 ABG HCO3 ABG O2 Saturation ABG Base Excess ABG Hemoglobin VBG pH Oxyhemoglobin Sodium Potassium 3.1 L D Chloride Carbon Dioxide BUN Creatinine Glucose POC Glucose 115 H 128 H Lactic Acid Calcium Phosphorus Total Bilirubin AST ALT C-Reactive Protein Total Protein Albumin Triglycerides Amylase Lipase Urine WBC (Auto) Vancomycin Trough Crossmatch 12/28/17 12/28/17 12/28/17 00:39 02:13 05:17 WBC RBC Hgb Hct MCV MCH MCHC RDW Plt Count Lymph % (Auto) Eos % (Auto) [place] # Eos # Baso # Seg Neutrophils % Seg Neuts % (Manual) Lymphocytes % (Manual) Monocytes % (Manual) Eosinophils % (Manual) Nucleated RBC % Seg Neutrophils # Seg Neutrophils # Man Lymphocytes # (Manual) Monocytes # (Manual) Eosinophils # (Manual) APTT POC ABG pH ABG pH 7.497 H POC ABG pCO2 POC ABG pO2 ABG pO2 71.4 L ABG HCO3 29.9 H ABG O2 Saturation ABG Base Excess 6.2 H ABG Hemoglobin 7.9 L VBG pH Oxyhemoglobin 94.9 L Sodium Potassium Chloride Carbon Dioxide BUN Creatinine Glucose POC Glucose 112 H 108 H Lactic Acid Calcium Phosphorus Total Bilirubin AST ALT C-Reactive Protein Total Protein Albumin Triglycerides Amylase Lipase Urine WBC (Auto) Vancomycin Trough Crossmatch 12/28/17 12/28/17 12/28/17 08:47 08:47 09:10 WBC 28.1 H RBC 2.76 L Hgb 9.1 L Hct 27.0 L MCV 98 H MCH 33 H MCHC RDW Plt Count Lymph % (Auto) Eos % (Auto) [place] # Eos # Baso # Seg Neutrophils % Seg Neuts % (Manual) Lymphocytes % (Manual) Monocytes % (Manual) Eosinophils % (Manual) Nucleated RBC % Seg Neutrophils # Seg Neutrophils # Man Lymphocytes # (Manual) Monocytes # (Manual) Eosinophils # (Manual) APTT POC ABG pH ABG pH POC ABG pCO2 POC ABG pO2 ABG pO2 ABG HCO3 ABG O2 Saturation ABG Base Excess ABG Hemoglobin VBG pH Oxyhemoglobin Sodium Potassium 2.2 L* D Chloride Carbon Dioxide BUN 5 L Creatinine 0.5 L Glucose 106 H POC Glucose Lactic Acid Calcium 8.3 L Phosphorus 2.20 L Total Bilirubin AST ALT C-Reactive Protein Total Protein Albumin Triglycerides Amylase Lipase Urine WBC (Auto) Vancomycin Trough Crossmatch 12/28/17 12/28/17 12/28/17 13:28 14:22 18:48 WBC RBC Hgb Hct MCV MCH MCHC RDW Plt Count Lymph % (Auto) Eos % (Auto) [place] # Eos # Baso # Seg Neutrophils % Seg Neuts % (Manual) Lymphocytes % (Manual) Monocytes % (Manual) Eosinophils % (Manual) Nucleated RBC % Seg Neutrophils # Seg Neutrophils # Man Lymphocytes # (Manual) Monocytes # (Manual) Eosinophils # (Manual) APTT POC ABG pH ABG pH 7.476 H POC ABG pCO2 POC ABG pO2 ABG pO2 167.7 H ABG HCO3 30.9 H ABG O2 Saturation 99.1 H ABG Base Excess 6.7 H ABG Hemoglobin 8.5 L VBG pH Oxyhemoglobin Sodium Potassium Chloride Carbon Dioxide BUN Creatinine Glucose POC Glucose 141 H 129 H Lactic Acid Calcium Phosphorus Total Bilirubin AST ALT C-Reactive Protein Total Protein Albumin Triglycerides Amylase Lipase Urine WBC (Auto) Vancomycin Trough Crossmatch 12/28/17 12/29/17 12/29/17 21:22 02:45 05:11 WBC RBC Hgb Hct MCV MCH MCHC RDW Plt Count Lymph % (Auto) Eos % (Auto) [place] # Eos # Baso # Seg Neutrophils % Seg Neuts % (Manual) Lymphocytes % (Manual) Monocytes % (Manual) Eosinophils % (Manual) Nucleated RBC % Seg Neutrophils # Seg Neutrophils # Man Lymphocytes # (Manual) Monocytes # (Manual) Eosinophils # (Manual) APTT POC ABG pH ABG pH POC ABG pCO2 POC ABG pO2 ABG pO2 ABG HCO3 ABG O2 Saturation ABG Base Excess ABG Hemoglobin VBG pH Oxyhemoglobin Sodium Potassium Chloride Carbon Dioxide BUN Creatinine Glucose POC Glucose 123 H 138 H 138 H Lactic Acid Calcium Phosphorus Total Bilirubin AST ALT C-Reactive Protein Total Protein Albumin Triglycerides Amylase Lipase Urine WBC (Auto) Vancomycin Trough Crossmatch 12/29/17 12/29/17 12/29/17 05:50 08:04 08:04 WBC 20.8 H RBC 2.26 L Hgb 7.5 L Hct 22.7 L MCV 100 H MCH 33 H MCHC RDW Plt Count Lymph % (Auto) Eos % (Auto) [place] # Eos # Baso # Seg Neutrophils % Seg Neuts % (Manual) 93.0 H Lymphocytes % (Manual) 2.0 L Monocytes % (Manual) Eosinophils % (Manual) Nucleated RBC % Seg Neutrophils # Seg Neutrophils # Man 19.3 H Lymphocytes # (Manual) 0.4 L Monocytes # (Manual) Eosinophils # (Manual) 0.7 H APTT POC ABG pH ABG pH 7.467 H POC ABG pCO2 POC ABG pO2 ABG pO2 ABG HCO3 28.2 H ABG O2 Saturation ABG Base Excess 4.0 H ABG Hemoglobin < 5.1 L VBG pH Oxyhemoglobin Sodium Potassium 3.0 L D Chloride Carbon Dioxide BUN Creatinine 0.5 L Glucose 147 H POC Glucose Lactic Acid Calcium 7.8 L Phosphorus Total Bilirubin AST ALT C-Reactive Protein Total Protein 5.6 L Albumin 2.4 L Triglycerides Amylase Lipase Urine WBC (Auto) Vancomycin Trough Crossmatch 12/29/17 12/29/17 12/29/17 08:20 10:59 14:09 WBC RBC Hgb Hct MCV MCH MCHC RDW Plt Count Lymph % (Auto) Eos % (Auto) [place] # Eos # Baso # Seg Neutrophils % Seg Neuts % (Manual) Lymphocytes % (Manual) Monocytes % (Manual) Eosinophils % (Manual) Nucleated RBC % Seg Neutrophils # Seg Neutrophils # Man Lymphocytes # (Manual) Monocytes # (Manual) Eosinophils # (Manual) APTT POC ABG pH ABG pH POC ABG pCO2 POC ABG pO2 ABG pO2 ABG HCO3 ABG O2 Saturation ABG Base Excess ABG Hemoglobin VBG pH Oxyhemoglobin Sodium Potassium Chloride Carbon Dioxide BUN Creatinine Glucose POC Glucose 153 H 186 H 183 H Lactic Acid Calcium Phosphorus Total Bilirubin AST ALT C-Reactive Protein Total Protein Albumin Triglycerides Amylase Lipase Urine WBC (Auto) Vancomycin Trough Crossmatch 12/29/17 12/29/17 12/29/17 18:03 22:05 22:56 WBC RBC Hgb Hct MCV MCH MCHC RDW Plt Count Lymph % (Auto) Eos % (Auto) [place] # Eos # Baso # Seg Neutrophils % Seg Neuts % (Manual) Lymphocytes % (Manual) Monocytes % (Manual) Eosinophils % (Manual) Nucleated RBC % Seg Neutrophils # Seg Neutrophils # Man Lymphocytes # (Manual) Monocytes # (Manual) Eosinophils # (Manual) APTT POC ABG pH ABG pH POC ABG pCO2 POC ABG pO2 ABG pO2 ABG HCO3 ABG O2 Saturation ABG Base Excess ABG Hemoglobin VBG pH Oxyhemoglobin Sodium Potassium Chloride Carbon Dioxide BUN Creatinine Glucose POC Glucose 159 H 146 H 179 H Lactic Acid Calcium Phosphorus Total Bilirubin AST ALT C-Reactive Protein Total Protein Albumin Triglycerides Amylase Lipase Urine WBC (Auto) Vancomycin Trough Crossmatch 12/30/17 12/30/17 12/30/17 02:03 04:50 04:50 WBC 18.3 H RBC 2.22 L Hgb 7.4 L Hct 23.0 L MCV 104 H MCH 33 H MCHC RDW Plt Count 137 L Lymph % (Auto) 9.0 L Eos % (Auto) [place] # Eos # 0.5 H Baso # Seg Neutrophils % 84.9 H Seg Neuts % (Manual) Lymphocytes % (Manual) Monocytes % (Manual) Eosinophils % (Manual) Nucleated RBC % Seg Neutrophils # 15.6 H Seg Neutrophils # Man Lymphocytes # (Manual) Monocytes # (Manual) Eosinophils # (Manual) APTT POC ABG pH ABG pH POC ABG pCO2 POC ABG pO2 ABG pO2 ABG HCO3 ABG O2 Saturation ABG Base Excess ABG Hemoglobin VBG pH Oxyhemoglobin Sodium 147 H Potassium 3.1 L D Chloride 107.5 H Carbon Dioxide BUN Creatinine 0.5 L Glucose 120 H POC Glucose 118 H Lactic Acid Calcium 7.4 L Phosphorus Total Bilirubin AST ALT C-Reactive Protein Total Protein Albumin Triglycerides Amylase Lipase Urine WBC (Auto) Vancomycin Trough Crossmatch 12/30/17 12/30/17 12/30/17 05:04 13:53 17:33 WBC RBC Hgb Hct MCV MCH MCHC RDW Plt Count Lymph % (Auto) Eos % (Auto) [place] # Eos # Baso # Seg Neutrophils % Seg Neuts % (Manual) Lymphocytes % (Manual) Monocytes % (Manual) Eosinophils % (Manual) Nucleated RBC % Seg Neutrophils # Seg Neutrophils # Man Lymphocytes # (Manual) Monocytes # (Manual) Eosinophils # (Manual) APTT POC ABG pH ABG pH POC ABG pCO2 POC ABG pO2 ABG pO2 ABG HCO3 ABG O2 Saturation ABG Base Excess ABG Hemoglobin VBG pH Oxyhemoglobin Sodium Potassium Chloride Carbon Dioxide BUN Creatinine Glucose POC Glucose 150 H 113 H 145 H Lactic Acid Calcium Phosphorus Total Bilirubin AST ALT C-Reactive Protein Total Protein Albumin Triglycerides Amylase Lipase Urine WBC (Auto) Vancomycin Trough Crossmatch 12/31/17 12/31/17 12/31/17 01:54 03:15 03:15 WBC 17.1 H RBC 2.08 L Hgb 6.9 L Hct 20.6 L MCV 99 H MCH 33 H MCHC RDW 13.1 L Plt Count Lymph % (Auto) 10.5 L Eos % (Auto) [place] # Eos # 0.6 H Baso # Seg Neutrophils % 82.3 H Seg Neuts % (Manual) Lymphocytes % (Manual) Monocytes % (Manual) Eosinophils % (Manual) Nucleated RBC % Seg Neutrophils # 14.0 H Seg Neutrophils # Man Lymphocytes # (Manual) Monocytes # (Manual) Eosinophils # (Manual) APTT POC ABG pH ABG pH POC ABG pCO2 POC ABG pO2 ABG pO2 ABG HCO3 ABG O2 Saturation ABG Base Excess ABG Hemoglobin VBG pH Oxyhemoglobin Sodium Potassium 3.5 L Chloride Carbon Dioxide BUN Creatinine 0.6 L Glucose POC Glucose 69 L Lactic Acid Calcium 7.8 L Phosphorus Total Bilirubin AST ALT C-Reactive Protein Total Protein Albumin Triglycerides Amylase Lipase Urine WBC (Auto) Vancomycin Trough Crossmatch 12/31/17 12/31/17 12/31/17 05:15 09:25 10:17 WBC RBC Hgb Hct MCV MCH MCHC RDW Plt Count Lymph % (Auto) Eos % (Auto) [place] # Eos # Baso # Seg Neutrophils % Seg Neuts % (Manual) Lymphocytes % (Manual) Monocytes % (Manual) Eosinophils % (Manual) Nucleated RBC % Seg Neutrophils # Seg Neutrophils # Man Lymphocytes # (Manual) Monocytes # (Manual) Eosinophils # (Manual) APTT POC ABG pH ABG pH 7.516 H POC ABG pCO2 POC ABG pO2 ABG pO2 69.2 L ABG HCO3 28.7 H ABG O2 Saturation ABG Base Excess 5.3 H ABG Hemoglobin 6.6 L VBG pH Oxyhemoglobin 93.8 L Sodium Potassium Chloride Carbon Dioxide BUN Creatinine Glucose POC Glucose 143 H Lactic Acid Calcium Phosphorus Total Bilirubin AST ALT C-Reactive Protein Total Protein Albumin Triglycerides Amylase Lipase Urine WBC (Auto) Vancomycin Trough Crossmatch See Detail 12/31/17 12/31/17 12/31/17 14:20 18:30 21:40 WBC RBC Hgb Hct MCV MCH MCHC RDW Plt Count Lymph % (Auto) Eos % (Auto) [place] # Eos # Baso # Seg Neutrophils % Seg Neuts % (Manual) Lymphocytes % (Manual) Monocytes % (Manual) Eosinophils % (Manual) Nucleated RBC % Seg Neutrophils # Seg Neutrophils # Man Lymphocytes # (Manual) Monocytes # (Manual) Eosinophils # (Manual) APTT POC ABG pH ABG pH POC ABG pCO2 POC ABG pO2 ABG pO2 ABG HCO3 ABG O2 Saturation ABG Base Excess ABG Hemoglobin VBG pH Oxyhemoglobin Sodium Potassium Chloride Carbon Dioxide BUN Creatinine Glucose POC Glucose 175 H 137 H 182 H Lactic Acid Calcium Phosphorus Total Bilirubin AST ALT C-Reactive Protein Total Protein Albumin Triglycerides Amylase Lipase Urine WBC (Auto) Vancomycin Trough Crossmatch 12/31/17 01/01/18 01/01/18 23:34 02:09 04:00 WBC 16.4 H RBC 2.41 L Hgb 7.8 L Hct 23.6 L MCV 98 H MCH 33 H MCHC RDW Plt Count Lymph % (Auto) 10.7 L Eos % (Auto) [place] # Eos # 0.7 H Baso # 0.2 H Seg Neutrophils % 79.0 H Seg Neuts % (Manual) Lymphocytes % (Manual) Monocytes % (Manual) Eosinophils % (Manual) Nucleated RBC % Seg Neutrophils # 12.9 H Seg Neutrophils # Man Lymphocytes # (Manual) Monocytes # (Manual) Eosinophils # (Manual) APTT POC ABG pH ABG pH POC ABG pCO2 POC ABG pO2 ABG pO2 ABG HCO3 ABG O2 Saturation ABG Base Excess ABG Hemoglobin VBG pH Oxyhemoglobin Sodium Potassium Chloride Carbon Dioxide BUN Creatinine Glucose POC Glucose 132 H 117 H Lactic Acid Calcium Phosphorus Total Bilirubin AST ALT C-Reactive Protein Total Protein Albumin Triglycerides Amylase Lipase Urine WBC (Auto) Vancomycin Trough Crossmatch 01/01/18 01/01/18 01/01/18 04:00 04:04 05:32 WBC RBC Hgb Hct MCV MCH MCHC RDW Plt Count Lymph % (Auto) Eos % (Auto) [place] # Eos # Baso # Seg Neutrophils % Seg Neuts % (Manual) Lymphocytes % (Manual) Monocytes % (Manual) Eosinophils % (Manual) Nucleated RBC % Seg Neutrophils # Seg Neutrophils # Man Lymphocytes # (Manual) Monocytes # (Manual) Eosinophils # (Manual) APTT POC ABG pH ABG pH 7.458 H POC ABG pCO2 POC ABG pO2 ABG pO2 67.5 L ABG HCO3 27.5 H ABG O2 Saturation 94.4 L ABG Base Excess 3.4 H ABG Hemoglobin 7.8 L VBG pH Oxyhemoglobin 92.1 L Sodium Potassium Chloride Carbon Dioxide BUN Creatinine 0.4 L Glucose 129 H POC Glucose 129 H Lactic Acid Calcium 7.9 L Phosphorus Total Bilirubin AST ALT C-Reactive Protein Total Protein Albumin Triglycerides Amylase Lipase Urine WBC (Auto) Vancomycin Trough Crossmatch 01/01/18 01/01/18 01/01/18 10:10 12:38 17:27 WBC RBC Hgb Hct MCV MCH MCHC RDW Plt Count Lymph % (Auto) Eos % (Auto) [place] # Eos # Baso # Seg Neutrophils % Seg Neuts % (Manual) Lymphocytes % (Manual) Monocytes % (Manual) Eosinophils % (Manual) Nucleated RBC % Seg Neutrophils # Seg Neutrophils # Man Lymphocytes # (Manual) Monocytes # (Manual) Eosinophils # (Manual) APTT POC ABG pH ABG pH POC ABG pCO2 POC ABG pO2 ABG pO2 ABG HCO3 ABG O2 Saturation ABG Base Excess ABG Hemoglobin VBG pH Oxyhemoglobin Sodium Potassium Chloride Carbon Dioxide BUN Creatinine Glucose POC Glucose 155 H 179 H 152 H Lactic Acid Calcium Phosphorus Total Bilirubin AST ALT C-Reactive Protein Total Protein Albumin Triglycerides Amylase Lipase Urine WBC (Auto) Vancomycin Trough Crossmatch 01/01/18 01/02/18 01/02/18 21:36 01:42 04:10 WBC 12.1 H RBC 2.29 L Hgb 7.5 L Hct 22.7 L MCV 99 H MCH 33 H MCHC RDW Plt Count Lymph % (Auto) Eos % (Auto) 5.5 H [place] # 0.9 H Eos # 0.7 H Baso # Seg Neutrophils % Seg Neuts % (Manual) Lymphocytes % (Manual) Monocytes % (Manual) Eosinophils % (Manual) Nucleated RBC % Seg Neutrophils # 8.3 H Seg Neutrophils # Man Lymphocytes # (Manual) Monocytes # (Manual) Eosinophils # (Manual) APTT POC ABG pH ABG pH POC ABG pCO2 POC ABG pO2 ABG pO2 ABG HCO3 ABG O2 Saturation ABG Base Excess ABG Hemoglobin VBG pH Oxyhemoglobin Sodium Potassium Chloride Carbon Dioxide BUN Creatinine Glucose POC Glucose 118 H 117 H Lactic Acid Calcium Phosphorus Total Bilirubin AST ALT C-Reactive Protein Total Protein Albumin Triglycerides Amylase Lipase Urine WBC (Auto) Vancomycin Trough Crossmatch 01/02/18 01/02/18 01/02/18 04:10 04:57 13:42 WBC RBC Hgb Hct MCV MCH MCHC RDW Plt Count Lymph % (Auto) Eos % (Auto) [place] # Eos # Baso # Seg Neutrophils % Seg Neuts % (Manual) Lymphocytes % (Manual) Monocytes % (Manual) Eosinophils % (Manual) Nucleated RBC % Seg Neutrophils # Seg Neutrophils # Man Lymphocytes # (Manual) Monocytes # (Manual) Eosinophils # (Manual) APTT POC ABG pH ABG pH POC ABG pCO2 POC ABG pO2 ABG pO2 ABG HCO3 ABG O2 Saturation ABG Base Excess ABG Hemoglobin VBG pH Oxyhemoglobin Sodium Potassium Chloride 97.0 L Carbon Dioxide BUN Creatinine 0.4 L Glucose POC Glucose 107 H 133 H Lactic Acid Calcium 8.1 L Phosphorus Total Bilirubin AST ALT C-Reactive Protein Total Protein 6.0 L Albumin 2.5 L Triglycerides Amylase Lipase Urine WBC (Auto) Vancomycin Trough Crossmatch 01/02/18 01/02/18 01/03/18 17:33 22:11 02:18 WBC RBC Hgb Hct MCV MCH MCHC RDW Plt Count Lymph % (Auto) Eos % (Auto) [place] # Eos # Baso # Seg Neutrophils % Seg Neuts % (Manual) Lymphocytes % (Manual) Monocytes % (Manual) Eosinophils % (Manual) Nucleated RBC % Seg Neutrophils # Seg Neutrophils # Man Lymphocytes # (Manual) Monocytes # (Manual) Eosinophils # (Manual) APTT POC ABG pH ABG pH POC ABG pCO2 POC ABG pO2 ABG pO2 ABG HCO3 ABG O2 Saturation ABG Base Excess ABG Hemoglobin VBG pH Oxyhemoglobin Sodium Potassium Chloride Carbon Dioxide BUN Creatinine Glucose POC Glucose 146 H 171 H 162 H Lactic Acid Calcium Phosphorus Total Bilirubin AST ALT C-Reactive Protein Total Protein Albumin Triglycerides Amylase Lipase Urine WBC (Auto) Vancomycin Trough Crossmatch 01/03/18 01/03/18 01/03/18 04:56 05:21 17:20 WBC RBC Hgb Hct MCV MCH MCHC RDW Plt Count Lymph % (Auto) Eos % (Auto) [place] # Eos # Baso # Seg Neutrophils % Seg Neuts % (Manual) Lymphocytes % (Manual) Monocytes % (Manual) Eosinophils % (Manual) Nucleated RBC % Seg Neutrophils # Seg Neutrophils # Man Lymphocytes # (Manual) Monocytes # (Manual) Eosinophils # (Manual) APTT POC ABG pH ABG pH POC ABG pCO2 POC ABG pO2 ABG pO2 79.5 L ABG HCO3 31.4 H ABG O2 Saturation ABG Base Excess 6.3 H ABG Hemoglobin 10.4 L VBG pH Oxyhemoglobin 94.2 L Sodium Potassium Chloride Carbon Dioxide BUN Creatinine Glucose POC Glucose 163 H 153 H Lactic Acid Calcium Phosphorus Total Bilirubin AST ALT C-Reactive Protein Total Protein Albumin Triglycerides Amylase Lipase Urine WBC (Auto) Vancomycin Trough Crossmatch 01/03/18 01/03/18 01/04/18 17:50 19:52 00:40 WBC RBC Hgb Hct MCV MCH MCHC RDW Plt Count Lymph % (Auto) Eos % (Auto) [place] # Eos # Baso # Seg Neutrophils % Seg Neuts % (Manual) Lymphocytes % (Manual) Monocytes % (Manual) Eosinophils % (Manual) Nucleated RBC % Seg Neutrophils # Seg Neutrophils # Man Lymphocytes # (Manual) Monocytes # (Manual) Eosinophils # (Manual) APTT POC ABG pH ABG pH POC ABG pCO2 POC ABG pO2 ABG pO2 ABG HCO3 ABG O2 Saturation ABG Base Excess ABG Hemoglobin VBG pH Oxyhemoglobin Sodium Potassium Chloride Carbon Dioxide BUN Creatinine Glucose POC Glucose 157 H 147 H 158 H Lactic Acid Calcium Phosphorus Total Bilirubin AST ALT C-Reactive Protein Total Protein Albumin Triglycerides Amylase Lipase Urine WBC (Auto) Vancomycin Trough Crossmatch 01/04/18 01/04/18 01/04/18 04:01 05:13 06:12 WBC 11.5 H RBC 2.95 L Hgb 9.8 L Hct 29.5 L D MCV 100 H MCH 33 H MCHC RDW Plt Count Lymph % (Auto) Eos % (Auto) [place] # Eos # Baso # Seg Neutrophils % Seg Neuts % (Manual) Lymphocytes % (Manual) Monocytes % (Manual) Eosinophils % (Manual) 6.0 H Nucleated RBC % Seg Neutrophils # Seg Neutrophils # Man Lymphocytes # (Manual) Monocytes # (Manual) Eosinophils # (Manual) 0.7 H APTT POC ABG pH ABG pH 7.498 H POC ABG pCO2 POC ABG pO2 ABG pO2 129.5 H ABG HCO3 30.1 H ABG O2 Saturation ABG Base Excess 6.4 H ABG Hemoglobin 9.3 L VBG pH Oxyhemoglobin Sodium Potassium Chloride Carbon Dioxide BUN Creatinine Glucose POC Glucose 163 H Lactic Acid Calcium Phosphorus Total Bilirubin AST ALT C-Reactive Protein Total Protein Albumin Triglycerides Amylase Lipase Urine WBC (Auto) Vancomycin Trough Crossmatch 01/04/18 06:12 WBC RBC Hgb Hct MCV MCH MCHC RDW Plt Count Lymph % (Auto) Eos % (Auto) [place] # Eos # Baso # Seg Neutrophils % Seg Neuts % (Manual) Lymphocytes % (Manual) Monocytes % (Manual) Eosinophils % (Manual) Nucleated RBC % Seg Neutrophils # Seg Neutrophils # Man Lymphocytes # (Manual) Monocytes # (Manual) Eosinophils # (Manual) APTT POC ABG pH ABG pH POC ABG pCO2 POC ABG pO2 ABG pO2 ABG HCO3 ABG O2 Saturation ABG Base Excess ABG Hemoglobin VBG pH Oxyhemoglobin Sodium Potassium Chloride Carbon Dioxide BUN Creatinine 0.5 L Glucose 174 H POC Glucose Lactic Acid Calcium Phosphorus Total Bilirubin AST 41 H ALT C-Reactive Protein Total Protein Albumin 2.9 L Triglycerides Amylase Lipase Urine WBC (Auto) Vancomycin Trough Crossmatch
[2018-01-04] MEDS: SUBLIMAZE IV PRN (21:01)
[2018-01-05] MEDS: SUBLIMAZE IV PRN ×6 (02:23→22:01)
[2018-01-05] MEDS: HumaLOG SUB-Q SCH ×6 (02:24→22:19)
[2018-01-05 03:58] LABS: ABG Base Excess 5.5 mmol/L (-2.0-3.0); ABG HCO3 30.2 mmol/L (20.0-26.0); ABG Methemoglobin 0.5 % (0.0-1.5); ABG Oxygen Saturation 91.3 % (95.0-99.0); ABG PCO2 45.1 mm Hg; ABG PH 7.444 pH Units (7.350-7.450); ABG PO2 64.6 mm Hg (80.0-90.0)
[2018-01-05] MEDS: HEPARIN SUB-Q SCH (05:02)
[2018-01-05] MEDS: LOPRESSOR IV SCH ×3 (05:02→17:32)
[2018-01-05] MEDS: LIBRIUM PO SCH ×3 (05:02→17:32)
[2018-01-05 05:25] LABS: ABG Base Excess 5.2 mmol/L (-2.0-3.0); ABG HCO3 29.4 mmol/L (20.0-26.0); ABG Methemoglobin 0.4 % (0.0-1.5); ABG Oxygen Saturation 95.8 % (95.0-99.0); ABG PH 7.463 pH Units (7.350-7.450)
[2018-01-05 07:07] LABS: BUN/Creatinine Ratio 28; Blood Urea Nitrogen 11 mg/dL (9-20); Calcium 8.8 mg/dL (8.4-10.2); Hemolysis Index 1
[2018-01-05] MEDS: DUONEB *Not for PRN Use IH SCH ×3 (08:30→19:30)
[2018-01-05] MEDS: PEPCID PO SCH ×2 (09:00→22:01)
[2018-01-05] MEDS: POTASSIUM CHLORIDE PO SCH (09:01)
[2018-01-05] MEDS: LANTUS SUB-Q SCH (09:01)
[2018-01-05] MEDS: VITAMIN B-1 PO SCH (09:01)
[2018-01-05] MEDS: SODIUM CHLORIDE FLUSH SYRINGE 10 ML IV SCH ×2 (09:07→22:00)
--- NOTE | 2018-01-05 11:20 | Progress Note ---
Assessment and Plan Assessment and plan: --Acute hypoxic hypercapnic respiratory failure : Remains intubated on vent, wean as tolerated and extubate Continue Vent support nebulizers and IV steroids --Anemia; received PRBC transfusion, and its low stable --Sepsis/aspiration pneumonia/ARDS Off antibiotics ,Received Zyvox cefepime and Flagyl, ID following --Hypokalemia; corrected --Alcohol abuse: Continue thiamine, Librium as needed --Hypotension; improved, off Levophed --Thrombocytopenia, improving, no evidence of bleeding --Severe protein calorie malnutrition; nutrition supplements, tube feeding and supportive care --DM type 2-continue Accu-Chek sliding scale coverage long-acting insulin, chilled feeding --DVT prophylaxis: Changed to Lovenox and SCDs Plan of care reviewed with the patient's nurse Critical care time 31 minutes The high probability of a clinically significant sudden or life-threatening deterioration of the [infectious, respiratory, hematologic] system(s) required my full and direct attention, intervention and personal management. The aggregate critical care time was [31 ] minutes. This time is in addition to the time spent performing reported procedures but including [ X] Data review and interpretation [ X] Patient assessment and monitoring of vital signs [ X ] Documentation [X] Medication orders and management History Interval history: Patient seen and examined in ICU medical records reviewed The patient remains intubated on ventilatory support Unable to wean, but concerns reviewed No new events reported by nursing Patient is alert and awake and responding appropriately Vital signs reviewed Hospitalist Physical - Constitutional Vitals: Temp Pulse Resp BP Pulse Ox 97.9 F 109 H 44 H 131/85 94 01/05/18 08:00 01/05/18 11:00 01/05/18 11:00 01/05/18 11:00 01/05/18 11:00 General appearance: Present: no acute distress, well-nourished, other ( intubated on vent) - EENT Eyes: Present: PERRL, EOM intact - Neck Neck: Present: supple, normal ROM - Respiratory Respiratory effort: normal Respiratory: bilateral: diminished, rhonchi, negative: rales, wheezing - Cardiovascular Rhythm: regular Heart Sounds: Present: S1 & S2 - Extremities Extremities: no ischemia, No edema - Abdominal General gastrointestinal: soft, non-tender, non-distended, normal bowel sounds - Integumentary Integumentary: Present: clear, warm - Psychiatric Psychiatric: other (alert awake) - Neurologic Neurologic: other (alert and awake) Results - Labs CBC & Chem 7: 01/04/18 06:12 01/05/18 06:00 Labs: Laboratory Last Values WBC 11.5 K/mm3 (4.5-11.0) H 01/04/18 06:12 RBC 2.95 M/mm3 (3.65-5.03) L 01/04/18 06:12 Hgb 9.8 gm/dl (11.8-15.2) L 01/04/18 06:12 Hct 29.5 % (35.5-45.6) L D 01/04/18 06:12 MCV 100 fl (84-94) H 01/04/18 06:12 MCH 33 pg (28-32) H 01/04/18 06:12 MCHC 33 % (32-34) 01/04/18 06:12 RDW 14.5 % (13.2-15.2) 01/04/18 06:12 Plt Count 211 K/mm3 (140-440) 01/04/18 06:12 Lymph % (Auto) 18.5 % (13.4-35.0) 01/02/18 04:10 [place] % (Auto) 7.1 % (0.0-7.3) 01/02/18 04:10 Eos % (Auto) 5.5 % (0.0-4.3) H 01/02/18 04:10 Baso % (Auto) 0.3 % (0.0-1.8) 01/02/18 04:10 Lymph # 2.2 K/mm3 (1.2-5.4) 01/02/18 04:10 [place] # 0.9 K/mm3 (0.0-0.8) H 01/02/18 04:10 Eos # 0.7 K/mm3 (0.0-0.4) H 01/02/18 04:10 Baso # 0.0 K/mm3 (0.0-0.1) 01/02/18 04:10 Add Manual Diff Complete 01/04/18 06:12 Total Counted 100 01/04/18 06:12 Seg Neutrophils % 68.6 % (40.0-70.0) 01/02/18 04:10 Seg Neuts % (Manual) 65.0 % (40.0-70.0) 01/04/18 06:12 Band Neutrophils % 0 % 01/04/18 06:12 Lymphocytes % (Manual) 22.0 % (13.4-35.0) 01/04/18 06:12 Reactive Lymphs % (Man) 0 % 01/04/18 06:12 Monocytes % (Manual) 7.0 % (0.0-7.3) 01/04/18 06:12 Eosinophils % (Manual) 6.0 % (0.0-4.3) H 01/04/18 06:12 Basophils % (Manual) 0 % (0.0-1.8) 01/04/18 06:12 Metamyelocytes % 0 % 01/04/18 06:12 Myelocytes % 0 % 01/04/18 06:12 Promyelocytes % 0 % 01/04/18 06:12 Blast Cells % 0 % 01/04/18 06:12 Nucleated RBC % Not Reportable 01/04/18 06:12 Seg Neutrophils # 8.3 K/mm3 (1.8-7.7) H 01/02/18 04:10 Seg Neutrophils # Man 7.5 K/mm3 (1.8-7.7) 01/04/18 06:12 Band Neutrophils # 0.0 K/mm3 01/04/18 06:12 Lymphocytes # (Manual) 2.5 K/mm3 (1.2-5.4) 01/04/18 06:12 Abs React Lymphs (Man) 0.0 K/mm3 01/04/18 06:12 Monocytes # (Manual) 0.8 K/mm3 (0.0-0.8) 01/04/18 06:12 Eosinophils # (Manual) 0.7 K/mm3 (0.0-0.4) H 01/04/18 06:12 Basophils # (Manual) 0.0 K/mm3 (0.0-0.1) 01/04/18 06:12 Metamyelocytes # 0.0 K/mm3 01/04/18 06:12 Myelocytes # 0.0 K/mm3 01/04/18 06:12 Promyelocytes # 0.0 K/mm3 01/04/18 06:12 Blast Cells # 0.0 K/mm3 01/04/18 06:12 Pathologist Review 12/23/17 09:25 WBC Morphology Not Reportable 01/04/18 06:12 Hypersegmented Neuts Not Reportable 01/04/18 06:12 Hyposegmented Neuts Not Reportable 01/04/18 06:12 Hypogranular Neuts Not Reportable 01/04/18 06:12 Smudge Cells Not Reportable 01/04/18 06:12 Toxic Granulation Not Reportable 01/04/18 06:12 Toxic Vacuolation Not Reportable 01/04/18 06:12 Dohle Bodies Not Reportable 01/04/18 06:12 Pelger-Huet Anomaly Not Reportable 01/04/18 06:12 Mary Rods Not Reportable 01/04/18 06:12 Platelet Estimate Appears normal 01/04/18 06:12 Clumped Platelets Not Reportable 01/04/18 06:12 Plt Clumps, EDTA Not Reportable 01/04/18 06:12 Large Platelets Few 01/04/18 06:12 Giant Platelets Not Reportable 01/04/18 06:12 Platelet Satelliting Not Reportable 01/04/18 06:12 Plt Morphology Comment Not Reportable 01/04/18 06:12 RBC Morphology Normal 01/04/18 06:12 Dimorphic RBCs Not Reportable 01/04/18 06:12 Polychromasia Not Reportable 01/04/18 06:12 Hypochromasia Not Reportable 01/04/18 06:12 Poikilocytosis Not Reportable 01/04/18 06:12 Anisocytosis Not Reportable 01/04/18 06:12 Microcytosis Not Reportable 01/04/18 06:12 Macrocytosis Not Reportable 01/04/18 06:12 Spherocytes Not Reportable 01/04/18 06:12 Pappenheimer Bodies Not Reportable 01/04/18 06:12 Sickle Cells Not Reportable 01/04/18 06:12 Target Cells Not Reportable 01/04/18 06:12 Tear Drop Cells Not Reportable 01/04/18 06:12 Ovalocytes Not Reportable 01/04/18 06:12 Stomatocytes 1+ 12/29/17 08:04 Helmet Cells Not Reportable 01/04/18 06:12 Arceo-Halesite Bodies Not Reportable 01/04/18 06:12 [place] Rings Not Reportable 01/04/18 06:12 Chidi Cells Not Reportable 01/04/18 06:12 Bite Cells Not Reportable 01/04/18 06:12 Crenated Cell Not Reportable 01/04/18 06:12 Elliptocytes Not Reportable 01/04/18 06:12 Acanthocytes (Spur) Not Reportable 01/04/18 06:12 Rouleaux Not Reportable 01/04/18 06:12 Hemoglobin C Crystals Not Reportable 01/04/18 06:12 Schistocytes Not Reportable 01/04/18 06:12 Malaria parasites Not Reportable 01/04/18 06:12 Vipul Bodies Not Reportable 01/04/18 06:12 Hem Pathologist Commnt No 01/04/18 06:12 PT 14.9 Sec. (12.2-14.9) 12/15/17 04:05 INR 1.11 (0.87-1.13) 12/15/17 04:05 APTT 20.9 Sec. (24.2-36.6) L 12/15/17 04:05 POC ABG pH 7.503 (7.35-7.45) H 12/25/17 03:38 ABG pH 7.463 pH Units (7.350-7.450) H 01/05/18 Unknown POC ABG pCO2 35.8 (35-45) 12/25/17 03:38 ABG pCO2 42.0 mm Hg 01/05/18 Unknown POC ABG pO2 66 (80-105) L 12/25/17 03:38 ABG pO2 74.0 mm Hg (80.0-90.0) L 01/05/18 Unknown POC ABG HCO3 28.1 12/25/17 03:38 ABG HCO3 29.4 mmol/L (20.0-26.0) H 01/05/18 Unknown POC ABG Total CO2 29 12/25/17 03:38 POC ABG O2 Sat 95 12/25/17 03:38 ABG O2 Saturation 95.8 % (95.0-99.0) 01/05/18 Unknown ABG O2 Content 13.2 (0.0-44) 01/05/18 Unknown POC ABG Base Excess 5 12/25/17 03:38 ABG Base Excess 5.2 mmol/L (-2.0-3.0) H 01/05/18 Unknown ABG Hemoglobin 10.0 gm/dl (14.0-18.0) L 01/05/18 Unknown ABG Carboxyhemoglobin 2.1 % (0.0-5.0) 01/05/18 Unknown ABG Methemoglobin 0.4 % (0.0-1.5) 01/05/18 Unknown VBG pH 7.472 (7.320-7.420) H 12/12/17 19:18 Oxyhemoglobin 93.4 % (95.0-99.0) L 01/05/18 Unknown FiO2 30 % 01/05/18 Unknown Sodium 140 mmol/L (137-145) 01/05/18 06:00 Potassium 4.1 mmol/L (3.6-5.0) 01/05/18 06:00 Chloride 98.2 mmol/L (98-107) 01/05/18 06:00 Carbon Dioxide 28 mmol/L (22-30) 01/05/18 06:00 Anion Gap 18 mmol/L 01/05/18 06:00 BUN 11 mg/dL (9-20) 01/05/18 06:00 Creatinine 0.4 mg/dL (0.8-1.5) L 01/05/18 06:00 Estimated GFR > 60 ml/min 01/05/18 06:00 BUN/Creatinine Ratio 28 % 01/05/18 06:00 Glucose 144 mg/dL (75-100) H 01/05/18 06:00 POC Glucose 136 (70-105) H 01/05/18 06:07 Lactic Acid 2.00 mmol/L (0.7-2.0) 12/13/17 19:38 Calcium 8.8 mg/dL (8.4-10.2) 01/05/18 06:00 Phosphorus 3.00 mg/dL (2.5-4.5) 01/04/18 06:12 Magnesium 2.00 mg/dL (1.7-2.3) 01/04/18 06:12 Total Bilirubin 0.30 mg/dL (0.1-1.2) 01/04/18 06:12 AST 41 units/L (5-40) H 01/04/18 06:12 ALT 37 units/L (7-56) 01/04/18 06:12 Alkaline Phosphatase 74 units/L (35-129) 01/04/18 06:12 C-Reactive Protein 7.10 mg/dL (0.00-1.30) H 12/20/17 13:40 NT-Pro-B Natriuret Pep 409.9 pg/mL (0-450) 12/12/17 19:02 Total Protein 7.4 g/dL (6.3-8.2) D 01/04/18 06:12 Albumin 2.9 g/dL (3.9-5) L 01/04/18 06:12 Albumin/Globulin Ratio 0.6 % 01/04/18 06:12 Triglycerides 1042 mg/dL (2-149) H 12/20/17 13:40 Amylase 20 units/L (27-131) L 12/13/17 13:47 Lipase 9 units/L (13-60) L 12/13/17 13:47 Urine Color [place] (Yellow) 12/15/17 17:00 Urine Turbidity Hazy (Clear) 12/15/17 17:00 Urine pH 6.0 (5.0-7.0) 12/15/17 17:00 Ur Specific [place] 1.027 (1.003-1.030) 12/15/17 17:00 Urine Protein 30 mg/dl mg/dL (Negative) 12/15/17 17:00 Urine Glucose (UA) Neg mg/dL (Negative) 12/15/17 17:00 Urine Ketones Tr mg/dL (Negative) 12/15/17 17:00 Urine Blood Lg (Negative) 12/15/17 17:00 Urine Nitrite Neg (Negative) 12/15/17 17:00 Urine Bilirubin Neg (Negative) 12/15/17 17:00 Urine Ictotest Positive (Negative) 12/12/17 20:42 Urine Urobilinogen < 2.0 mg/dL (<2.0) 12/15/17 17:00 Ur Leukocyte Esterase Tr (Negative) 12/15/17 17:00 Urine WBC (Auto) 38.0 /HPF (0.0-6.0) H 12/15/17 17:00 Urine RBC (Auto) 65.0 /HPF (0.0-6.0) 12/15/17 17:00 U Epithel Cells (Auto) < 1.0 /HPF (0-13.0) 12/12/17 20:42 Urine Bacteria (Auto) 1+ /HPF (Negative) 12/15/17 17:00 Urine Mucus 1+ /HPF 12/12/17 20:42 Vancomycin Trough 22.5 ug/mL (5.0-20.0) H 12/25/17 12:58 JERMAIN Screen Negative (Negative) 12/18/17 16:44 Proteinase 3 (PR3) Ab <1.0 AI (<1.0) 12/18/17 16:33 Myeloperoxidase Ab <1.0 AI (<1.0) 12/18/17 16:33 Complement C3 113 mg/dL (82-185) 12/18/17 16:33 Complement C4 15 mg/dL (15-53) 12/18/17 16:33 Hepatitis A IgM Ab Non-reactive (NonReactive) 12/20/17 13:40 Hep Bs Antigen Non-reactive (Negative) 12/20/17 13:40 Hep B Core IgM Ab Non-reactive (NonReactive) 12/20/17 13:40 Hepatitis C Antibody Non-reactive (NonReactive) 12/20/17 13:40 HIV 1&2 Antibody Rapid Non react (Non React) 12/20/17 13:40 HIV P24 Antigen Non react (Non React) 12/20/17 13:40 Influenza A (Rapid) Negative (Negative) 12/12/17 22:00 Influenza B (Rapid) Negative (Negative) 12/12/17 22:00 Urine Legionella Ag Not detected (Not Detected) 12/14/17 16:15 Miscellaneous Test Flexitest 1 12/14/17 16:15 Blood Type O POSITIVE 12/31/17 09:25 Antibody Screen Negative 12/31/17 09:25 Crossmatch See Detail 12/31/17 09:25
--- NOTE | 2018-01-05 11:52 | Progress Note ---
Assessment and Plan Acute hypoxemic respiratory failure. Failed spontaneous breathing trial this morning, completely of sedation Pneumonia. No fever. Off antibiotics at this point. See ID comments ARDS. Improved but still with impairment. CT showed pulmonary infiltrates post ARDS and unable to wean further Severe sepsis. Completed antibiotics Mixed lactic, respiratory anion gap acidosis Thrombocytopenia. Sepsis related versus history of alcohol use. Resolved Diabetes mellitus Abdominal distention. Cause unknown Obesity Recommendations Continue SBT in the morning Discussed trach with patient and . In agreement,but will continue SBT in the meantime. Patient failed further weaning attempts earlier this morning. Sedation as needed the patient appears to be comfortable at this time. Extubation precautions Critical care time was 31 minutes of [id number] evaluation coordination of care Subjective Date of service: 01/05/18 Principal diagnosis: ARDS,Respiratory failure,pneumonia Interval history: on vent alert in no distress. Off sedation Objective Vital Signs - 12hr 01/04/18 01/05/18 01/05/18 23:50 00:00 00:12 Temperature 99.0 F Pulse Rate 95 H 96 H 96 H Pulse Rate [ Anterior Bilateral Throughout] Pulse Rate [ From Monitor] Respiratory 21 Rate Respiratory Rate [Anterior Bilateral Throughout] Blood Pressure 122/79 118/79 118/79 O2 Sat by Pulse 94 96 94 Oximetry 01/05/18 01/05/18 01/05/18 00:30 01:00 01:30 Temperature Pulse Rate 99 H 103 H 107 H Pulse Rate [ Anterior Bilateral Throughout] Pulse Rate [ From Monitor] Respiratory 24 27 H 33 H Rate Respiratory Rate [Anterior Bilateral Throughout] Blood Pressure 116/74 116/79 128/87 O2 Sat by Pulse 93 92 87 Oximetry 01/05/18 01/05/18 01/05/18 02:00 02:23 02:30 Temperature Pulse Rate 109 H 103 H Pulse Rate [ Anterior Bilateral Throughout] Pulse Rate [ From Monitor] Respiratory 32 H 43 H 26 H Rate Respiratory Rate [Anterior Bilateral Throughout] Blood Pressure 122/78 142/89 O2 Sat by Pulse 90 90 Oximetry 01/05/18 01/05/18 01/05/18 02:54 03:00 03:30 Temperature Pulse Rate 102 H 104 H Pulse Rate [ Anterior Bilateral Throughout] Pulse Rate [ From Monitor] Respiratory 24 Rate Respiratory Rate [Anterior Bilateral Throughout] Blood Pressure 132/89 136/91 O2 Sat by Pulse 92 92 96 Oximetry 01/05/18 01/05/18 01/05/18 03:31 04:00 04:30 Temperature 98.9 F Pulse Rate 109 H 108 H 111 H Pulse Rate [ Anterior Bilateral Throughout] Pulse Rate [ From Monitor] Respiratory 29 H 28 H 19 Rate Respiratory Rate [Anterior Bilateral Throughout] Blood Pressure 143/119 136/91 143/92 O2 Sat by Pulse 93 92 93 Oximetry 01/05/18 01/05/18 01/05/18 04:40 05:00 05:01 Temperature Pulse Rate 109 H 107 H Pulse Rate [ Anterior Bilateral Throughout] Pulse Rate [ From Monitor] Respiratory 25 H 28 H Rate Respiratory Rate [Anterior Bilateral Throughout] Blood Pressure 143/92 137/89 O2 Sat by Pulse 93 95 Oximetry 01/05/18 01/05/18 01/05/18 05:02 05:31 06:00 Temperature Pulse Rate 105 H 90 96 H Pulse Rate [ Anterior Bilateral Throughout] Pulse Rate [ From Monitor] Respiratory 7 L 24 Rate Respiratory Rate [Anterior Bilateral Throughout] Blood Pressure 147/94 130/86 128/87 O2 Sat by Pulse 95 95 Oximetry 01/05/18 01/05/18 01/05/18 06:30 07:00 07:31 Temperature Pulse Rate 98 H 102 H 100 H Pulse Rate [ Anterior Bilateral Throughout] Pulse Rate [ From Monitor] Respiratory 27 H 28 H 28 H Rate Respiratory Rate [Anterior Bilateral Throughout] Blood Pressure 144/92 142/92 142/92 O2 Sat by Pulse 95 94 95 Oximetry 01/05/18 01/05/18 01/05/18 08:00 08:12 08:31 Temperature 97.9 F Pulse Rate 105 H 100 H Pulse Rate [ 101 H 99 H Anterior Bilateral Throughout] Pulse Rate [ 110 H From Monitor] Respiratory 31 H 18 Rate Respiratory 26 H 19 Rate [Anterior Bilateral Throughout] Blood Pressure 154/102 154/102 O2 Sat by Pulse 95 94 Oximetry 01/05/18 01/05/18 01/05/18 09:01 09:31 09:46 Temperature Pulse Rate 97 H 93 H 99 H Pulse Rate [ Anterior Bilateral Throughout] Pulse Rate [ From Monitor] Respiratory 18 18 Rate Respiratory Rate [Anterior Bilateral Throughout] Blood Pressure 121/80 121/80 121/80 O2 Sat by Pulse 100 100 93 Oximetry 01/05/18 01/05/18 01/05/18 10:00 10:31 11:00 Temperature Pulse Rate 103 H 110 H 109 H Pulse Rate [ Anterior Bilateral Throughout] Pulse Rate [ From Monitor] Respiratory 33 H 40 H 44 H Rate Respiratory Rate [Anterior Bilateral Throughout] Blood Pressure 128/89 128/89 131/85 O2 Sat by Pulse 93 95 94 Oximetry Constitutional: no acute distress, alert, asleep Eyes: non-icteric ENT: oropharynx moist, other (ETT at 24. ) Neck: no JVD Effort: normal Ascultation: Bilateral: clear, diminished breath sounds, rhonchi (sporadic) Percussion: Bilateral: not dull Tactile fremitus: Bilateral: normal Cardiovascular: regular rate and rhythm Gastrointestinal: hypoactive bowel sounds, non-tender, other (abdominal obesity) Integumentary: normal Extremities: no cyanosis, no ischemia or petechiae Neurologic: non-focal exam, pupils equal and round, CN II-XII normal Psychiatric: mood appropriate CBC and BMP: 01/04/18 06:12 01/05/18 06:00 ABG, PT/INR, D-dimer: ABG POC ABG pH 7.503 (7.35-7.45) H 12/25/17 03:38 ABG pH 7.463 pH Units (7.350-7.450) H 01/05/18 Unknown POC ABG pCO2 35.8 (35-45) 12/25/17 03:38 ABG pCO2 42.0 mm Hg 01/05/18 Unknown POC ABG pO2 66 (80-105) L 12/25/17 03:38 ABG pO2 74.0 mm Hg (80.0-90.0) L 01/05/18 Unknown POC ABG HCO3 28.1 12/25/17 03:38 POC ABG Total CO2 29 12/25/17 03:38 POC ABG O2 Sat 95 12/25/17 03:38 ABG O2 Saturation 95.8 % (95.0-99.0) 01/05/18 Unknown PT/INR, D-dimer PT 14.9 Sec. (12.2-14.9) 12/15/17 04:05 INR 1.11 (0.87-1.13) 12/15/17 04:05 Abnormal lab findings: Abnormal Labs 12/12/17 12/12/17 12/12/17 18:57 19:02 19:02 WBC RBC Hgb Hct MCV 96 H MCH 34 H MCHC 35 H RDW Plt Count 46 L Lymph % (Auto) Eos % (Auto) [place] # Eos # Baso # Seg Neutrophils % Seg Neuts % (Manual) 77.0 H Lymphocytes % (Manual) 13.0 L Monocytes % (Manual) Eosinophils % (Manual) Nucleated RBC % Seg Neutrophils # Seg Neutrophils # Man Lymphocytes # (Manual) 0.9 L Monocytes # (Manual) Eosinophils # (Manual) APTT POC ABG pH ABG pH POC ABG pCO2 POC ABG pO2 ABG pO2 ABG HCO3 ABG O2 Saturation ABG Base Excess ABG Hemoglobin VBG pH Oxyhemoglobin Sodium Potassium Chloride Carbon Dioxide BUN Creatinine Glucose POC Glucose 321 H Lactic Acid 4.00 H* Calcium Phosphorus Total Bilirubin AST ALT C-Reactive Protein Total Protein Albumin Triglycerides Amylase Lipase Urine WBC (Auto) Vancomycin Trough Crossmatch 12/12/17 12/12/17 12/12/17 19:02 19:18 20:55 WBC RBC Hgb Hct MCV MCH MCHC RDW Plt Count Lymph % (Auto) Eos % (Auto) [place] # Eos # Baso # Seg Neutrophils % Seg Neuts % (Manual) Lymphocytes % (Manual) Monocytes % (Manual) Eosinophils % (Manual) Nucleated RBC % Seg Neutrophils # Seg Neutrophils # Man Lymphocytes # (Manual) Monocytes # (Manual) Eosinophils # (Manual) APTT POC ABG pH ABG pH POC ABG pCO2 POC ABG pO2 ABG pO2 ABG HCO3 ABG O2 Saturation ABG Base Excess ABG Hemoglobin VBG pH 7.472 H Oxyhemoglobin Sodium 124 L Potassium Chloride 80.0 L Carbon Dioxide 20 L BUN Creatinine Glucose 382 H POC Glucose 283 H Lactic Acid Calcium 8.1 L Phosphorus Total Bilirubin 4.60 H AST 93 H ALT 112 H C-Reactive Protein Total Protein Albumin 2.5 L Triglycerides Amylase Lipase Urine WBC (Auto) Vancomycin Trough Crossmatch 12/12/17 12/13/17 12/13/17 21:41 00:45 01:29 WBC RBC Hgb Hct MCV MCH MCHC RDW Plt Count Lymph % (Auto) Eos % (Auto) [place] # Eos # Baso # Seg Neutrophils % Seg Neuts % (Manual) Lymphocytes % (Manual) Monocytes % (Manual) Eosinophils % (Manual) Nucleated RBC % Seg Neutrophils # Seg Neutrophils # Man Lymphocytes # (Manual) Monocytes # (Manual) Eosinophils # (Manual) APTT POC ABG pH ABG pH POC ABG pCO2 POC ABG pO2 ABG pO2 ABG HCO3 ABG O2 Saturation ABG Base Excess ABG Hemoglobin VBG pH Oxyhemoglobin Sodium Potassium Chloride Carbon Dioxide BUN Creatinine Glucose POC Glucose Lactic Acid 4.20 H* 2.70 H* 3.30 H* Calcium Phosphorus Total Bilirubin AST ALT C-Reactive Protein Total Protein Albumin Triglycerides Amylase Lipase Urine WBC (Auto) Vancomycin Trough Crossmatch 12/13/17 12/13/17 12/13/17 02:19 03:44 05:58 WBC RBC Hgb Hct MCV 97 H MCH 34 H MCHC 35 H RDW Plt Count 41 L Lymph % (Auto) Eos % (Auto) [place] # Eos # Baso # Seg Neutrophils % Seg Neuts % (Manual) Lymphocytes % (Manual) 8.0 L Monocytes % (Manual) 8.0 H Eosinophils % (Manual) Nucleated RBC % Seg Neutrophils # Seg Neutrophils # Man Lymphocytes # (Manual) 0.6 L Monocytes # (Manual) Eosinophils # (Manual) APTT POC ABG pH 7.334 L ABG pH POC ABG pCO2 POC ABG pO2 43 L ABG pO2 ABG HCO3 ABG O2 Saturation ABG Base Excess ABG Hemoglobin VBG pH Oxyhemoglobin Sodium Potassium Chloride Carbon Dioxide BUN Creatinine Glucose POC Glucose Lactic Acid 2.60 H* Calcium Phosphorus Total Bilirubin AST ALT C-Reactive Protein Total Protein Albumin Triglycerides Amylase Lipase Urine WBC (Auto) Vancomycin Trough Crossmatch 12/13/17 12/13/17 12/13/17 05:58 05:58 05:58 WBC RBC Hgb Hct MCV MCH MCHC RDW Plt Count Lymph % (Auto) Eos % (Auto) [place] # Eos # Baso # Seg Neutrophils % Seg Neuts % (Manual) Lymphocytes % (Manual) Monocytes % (Manual) Eosinophils % (Manual) Nucleated RBC % Seg Neutrophils # Seg Neutrophils # Man Lymphocytes # (Manual) Monocytes # (Manual) Eosinophils # (Manual) APTT POC ABG pH ABG pH POC ABG pCO2 POC ABG pO2 ABG pO2 ABG HCO3 ABG O2 Saturation ABG Base Excess ABG Hemoglobin VBG pH Oxyhemoglobin Sodium 132 L D Potassium Chloride 90.0 L Carbon Dioxide 20 L BUN Creatinine Glucose 346 H POC Glucose 298 H Lactic Acid 4.50 H* Calcium 8.2 L Phosphorus Total Bilirubin AST ALT C-Reactive Protein Total Protein Albumin Triglycerides Amylase Lipase Urine WBC (Auto) Vancomycin Trough Crossmatch 12/13/17 12/13/17 12/13/17 06:27 09:42 11:47 WBC RBC Hgb Hct MCV MCH MCHC RDW Plt Count Lymph % (Auto) Eos % (Auto) [place] # Eos # Baso # Seg Neutrophils % Seg Neuts % (Manual) Lymphocytes % (Manual) Monocytes % (Manual) Eosinophils % (Manual) Nucleated RBC % Seg Neutrophils # Seg Neutrophils # Man Lymphocytes # (Manual) Monocytes # (Manual) Eosinophils # (Manual) APTT POC ABG pH 7.267 L 7.298 L ABG pH POC ABG pCO2 50.4 H 51.3 H POC ABG pO2 47 L 43 L ABG pO2 ABG HCO3 ABG O2 Saturation ABG Base Excess ABG Hemoglobin VBG pH Oxyhemoglobin Sodium Potassium Chloride Carbon Dioxide BUN Creatinine Glucose POC Glucose 376 H Lactic Acid Calcium Phosphorus Total Bilirubin AST ALT C-Reactive Protein Total Protein Albumin Triglycerides Amylase Lipase Urine WBC (Auto) Vancomycin Trough Crossmatch 12/13/17 12/13/17 12/13/17 12:03 13:47 13:47 WBC RBC Hgb Hct MCV MCH MCHC RDW Plt Count Lymph % (Auto) Eos % (Auto) [place] # Eos # Baso # Seg Neutrophils % Seg Neuts % (Manual) Lymphocytes % (Manual) Monocytes % (Manual) Eosinophils % (Manual) Nucleated RBC % Seg Neutrophils # Seg Neutrophils # Man Lymphocytes # (Manual) Monocytes # (Manual) Eosinophils # (Manual) APTT POC ABG pH 7.264 L ABG pH POC ABG pCO2 54.9 H POC ABG pO2 55 L ABG pO2 ABG HCO3 ABG O2 Saturation ABG Base Excess ABG Hemoglobin VBG pH Oxyhemoglobin Sodium Potassium Chloride Carbon Dioxide BUN Creatinine Glucose POC Glucose Lactic Acid 2.80 H* Calcium Phosphorus Total Bilirubin AST ALT C-Reactive Protein Total Protein Albumin Triglycerides Amylase 20 L Lipase 9 L Urine WBC (Auto) Vancomycin Trough Crossmatch 12/13/17 12/13/17 12/13/17 15:36 17:39 21:47 WBC RBC Hgb Hct MCV MCH MCHC RDW Plt Count Lymph % (Auto) Eos % (Auto) [place] # Eos # Baso # Seg Neutrophils % Seg Neuts % (Manual) Lymphocytes % (Manual) Monocytes % (Manual) Eosinophils % (Manual) Nucleated RBC % Seg Neutrophils # Seg Neutrophils # Man Lymphocytes # (Manual) Monocytes # (Manual) Eosinophils # (Manual) APTT POC ABG pH 7.229 L 7.225 L ABG pH POC ABG pCO2 60.9 H 66.3 H POC ABG pO2 42 L 41 L ABG pO2 ABG HCO3 ABG O2 Saturation ABG Base Excess ABG Hemoglobin VBG pH Oxyhemoglobin Sodium Potassium Chloride Carbon Dioxide BUN Creatinine Glucose POC Glucose 289 H Lactic Acid Calcium Phosphorus Total Bilirubin AST ALT C-Reactive Protein Total Protein Albumin Triglycerides Amylase Lipase Urine WBC (Auto) Vancomycin Trough Crossmatch 12/13/17 12/14/17 12/14/17 22:19 02:03 05:16 WBC RBC Hgb Hct MCV MCH MCHC RDW Plt Count Lymph % (Auto) Eos % (Auto) [place] # Eos # Baso # Seg Neutrophils % Seg Neuts % (Manual) Lymphocytes % (Manual) Monocytes % (Manual) Eosinophils % (Manual) Nucleated RBC % Seg Neutrophils # Seg Neutrophils # Man Lymphocytes # (Manual) Monocytes # (Manual) Eosinophils # (Manual) APTT POC ABG pH 7.247 L ABG pH POC ABG pCO2 61.2 H POC ABG pO2 53 L ABG pO2 ABG HCO3 ABG O2 Saturation ABG Base Excess ABG Hemoglobin VBG pH Oxyhemoglobin Sodium Potassium Chloride Carbon Dioxide BUN Creatinine Glucose POC Glucose 274 H 295 H Lactic Acid Calcium Phosphorus Total Bilirubin AST ALT C-Reactive Protein Total Protein Albumin Triglycerides Amylase Lipase Urine WBC (Auto) Vancomycin Trough Crossmatch 12/14/17 12/14/17 12/14/17 05:32 12:04 16:22 WBC RBC Hgb Hct MCV MCH MCHC RDW Plt Count Lymph % (Auto) Eos % (Auto) [place] # Eos # Baso # Seg Neutrophils % Seg Neuts % (Manual) Lymphocytes % (Manual) Monocytes % (Manual) Eosinophils % (Manual) Nucleated RBC % Seg Neutrophils # Seg Neutrophils # Man Lymphocytes # (Manual) Monocytes # (Manual) Eosinophils # (Manual) APTT POC ABG pH ABG pH POC ABG pCO2 POC ABG pO2 ABG pO2 ABG HCO3 ABG O2 Saturation ABG Base Excess ABG Hemoglobin VBG pH Oxyhemoglobin Sodium Potassium Chloride Carbon Dioxide BUN Creatinine Glucose POC Glucose 230 H 241 H 231 H Lactic Acid Calcium Phosphorus Total Bilirubin AST ALT C-Reactive Protein Total Protein Albumin Triglycerides Amylase Lipase Urine WBC (Auto) Vancomycin Trough Crossmatch 12/14/17 12/15/17 12/15/17 21:29 02:29 03:25 WBC RBC Hgb Hct MCV MCH MCHC RDW Plt Count Lymph % (Auto) Eos % (Auto) [place] # Eos # Baso # Seg Neutrophils % Seg Neuts % (Manual) Lymphocytes % (Manual) Monocytes % (Manual) Eosinophils % (Manual) Nucleated RBC % Seg Neutrophils # Seg Neutrophils # Man Lymphocytes # (Manual) Monocytes # (Manual) Eosinophils # (Manual) APTT POC ABG pH 7.330 L ABG pH POC ABG pCO2 55.3 H POC ABG pO2 59 L ABG pO2 ABG HCO3 ABG O2 Saturation ABG Base Excess ABG Hemoglobin VBG pH Oxyhemoglobin Sodium Potassium Chloride Carbon Dioxide BUN Creatinine Glucose POC Glucose 258 H 246 H Lactic Acid Calcium Phosphorus Total Bilirubin AST ALT C-Reactive Protein Total Protein Albumin Triglycerides Amylase Lipase Urine WBC (Auto) Vancomycin Trough Crossmatch 12/15/17 12/15/17 12/15/17 04:05 04:05 04:05 WBC 15.0 H RBC 3.40 L Hgb 11.3 L D Hct 33.8 L D MCV 100 H MCH 33 H MCHC RDW Plt Count 48 L Lymph % (Auto) Eos % (Auto) [place] # Eos # Baso # Seg Neutrophils % Seg Neuts % (Manual) Lymphocytes % (Manual) 3.0 L Monocytes % (Manual) Eosinophils % (Manual) Nucleated RBC % 2.0 H Seg Neutrophils # Seg Neutrophils # Man Lymphocytes # (Manual) 0.5 L Monocytes # (Manual) 0.9 H Eosinophils # (Manual) APTT 20.9 L POC ABG pH ABG pH POC ABG pCO2 POC ABG pO2 ABG pO2 ABG HCO3 ABG O2 Saturation ABG Base Excess ABG Hemoglobin VBG pH Oxyhemoglobin Sodium Potassium Chloride Carbon Dioxide BUN 27 H Creatinine Glucose 258 H POC Glucose Lactic Acid Calcium 8.1 L Phosphorus Total Bilirubin AST ALT C-Reactive Protein Total Protein Albumin Triglycerides Amylase Lipase Urine WBC (Auto) Vancomycin Trough Crossmatch 12/15/17 12/15/17 12/15/17 05:32 11:17 14:59 WBC RBC Hgb Hct MCV MCH MCHC RDW Plt Count Lymph % (Auto) Eos % (Auto) [place] # Eos # Baso # Seg Neutrophils % Seg Neuts % (Manual) Lymphocytes % (Manual) Monocytes % (Manual) Eosinophils % (Manual) Nucleated RBC % Seg Neutrophils # Seg Neutrophils # Man Lymphocytes # (Manual) Monocytes # (Manual) Eosinophils # (Manual) APTT POC ABG pH ABG pH POC ABG pCO2 POC ABG pO2 ABG pO2 ABG HCO3 ABG O2 Saturation ABG Base Excess ABG Hemoglobin VBG pH Oxyhemoglobin Sodium Potassium Chloride Carbon Dioxide BUN Creatinine Glucose POC Glucose 247 H 268 H 233 H Lactic Acid Calcium Phosphorus Total Bilirubin AST ALT C-Reactive Protein Total Protein Albumin Triglycerides Amylase Lipase Urine WBC (Auto) Vancomycin Trough Crossmatch 12/15/17 12/15/17 12/15/17 17:00 18:59 21:37 WBC RBC Hgb Hct MCV MCH MCHC RDW Plt Count Lymph % (Auto) Eos % (Auto) [place] # Eos # Baso # Seg Neutrophils % Seg Neuts % (Manual) Lymphocytes % (Manual) Monocytes % (Manual) Eosinophils % (Manual) Nucleated RBC % Seg Neutrophils # Seg Neutrophils # Man Lymphocytes # (Manual) Monocytes # (Manual) Eosinophils # (Manual) APTT POC ABG pH ABG pH POC ABG pCO2 POC ABG pO2 ABG pO2 ABG HCO3 ABG O2 Saturation ABG Base Excess ABG Hemoglobin VBG pH Oxyhemoglobin Sodium Potassium Chloride Carbon Dioxide BUN Creatinine Glucose POC Glucose 195 H 208 H Lactic Acid Calcium Phosphorus Total Bilirubin AST ALT C-Reactive Protein Total Protein Albumin Triglycerides Amylase Lipase Urine WBC (Auto) 38.0 H Vancomycin Trough Crossmatch 12/16/17 12/16/17 12/16/17 03:17 03:33 04:18 WBC 16.4 H RBC 3.50 L Hgb 11.3 L Hct 35.4 L MCV 101 H MCH MCHC RDW Plt Count 54 L Lymph % (Auto) Eos % (Auto) [place] # Eos # Baso # Seg Neutrophils % Seg Neuts % (Manual) Lymphocytes % (Manual) Monocytes % (Manual) Eosinophils % (Manual) Nucleated RBC % Seg Neutrophils # Seg Neutrophils # Man Lymphocytes # (Manual) Monocytes # (Manual) Eosinophils # (Manual) APTT POC ABG pH ABG pH POC ABG pCO2 47.7 H POC ABG pO2 ABG pO2 ABG HCO3 ABG O2 Saturation ABG Base Excess ABG Hemoglobin VBG pH Oxyhemoglobin Sodium Potassium Chloride Carbon Dioxide BUN Creatinine Glucose POC Glucose 227 H Lactic Acid Calcium Phosphorus Total Bilirubin AST ALT C-Reactive Protein Total Protein Albumin Triglycerides Amylase Lipase Urine WBC (Auto) Vancomycin Trough Crossmatch 12/16/17 12/16/17 12/16/17 04:18 05:08 10:01 WBC RBC Hgb Hct MCV MCH MCHC RDW Plt Count Lymph % (Auto) Eos % (Auto) [place] # Eos # Baso # Seg Neutrophils % Seg Neuts % (Manual) Lymphocytes % (Manual) Monocytes % (Manual) Eosinophils % (Manual) Nucleated RBC % Seg Neutrophils # Seg Neutrophils # Man Lymphocytes # (Manual) Monocytes # (Manual) Eosinophils # (Manual) APTT POC ABG pH ABG pH POC ABG pCO2 POC ABG pO2 ABG pO2 ABG HCO3 ABG O2 Saturation ABG Base Excess ABG Hemoglobin VBG pH Oxyhemoglobin Sodium 147 H Potassium Chloride 107.4 H Carbon Dioxide BUN 28 H Creatinine Glucose 240 H POC Glucose 227 H 190 H Lactic Acid Calcium 8.3 L Phosphorus Total Bilirubin AST ALT C-Reactive Protein Total Protein Albumin Triglycerides Amylase Lipase Urine WBC (Auto) Vancomycin Trough Crossmatch 12/16/17 12/16/17 12/16/17 14:15 17:51 21:14 WBC RBC Hgb Hct MCV MCH MCHC RDW Plt Count Lymph % (Auto) Eos % (Auto) [place] # Eos # Baso # Seg Neutrophils % Seg Neuts % (Manual) Lymphocytes % (Manual) Monocytes % (Manual) Eosinophils % (Manual) Nucleated RBC % Seg Neutrophils # Seg Neutrophils # Man Lymphocytes # (Manual) Monocytes # (Manual) Eosinophils # (Manual) APTT POC ABG pH ABG pH POC ABG pCO2 POC ABG pO2 ABG pO2 ABG HCO3 ABG O2 Saturation ABG Base Excess ABG Hemoglobin VBG pH Oxyhemoglobin Sodium Potassium Chloride Carbon Dioxide BUN Creatinine Glucose POC Glucose 279 H 272 H 260 H Lactic Acid Calcium Phosphorus Total Bilirubin AST ALT C-Reactive Protein Total Protein Albumin Triglycerides Amylase Lipase Urine WBC (Auto) Vancomycin Trough Crossmatch 12/17/17 12/17/17 12/17/17 02:41 04:28 04:28 WBC 19.1 H RBC 3.50 L Hgb 11.4 L Hct 35.3 L MCV 101 H MCH 33 H MCHC RDW Plt Count 65 L Lymph % (Auto) Eos % (Auto) [place] # Eos # Baso # Seg Neutrophils % Seg Neuts % (Manual) Lymphocytes % (Manual) Monocytes % (Manual) Eosinophils % (Manual) Nucleated RBC % Seg Neutrophils # Seg Neutrophils # Man Lymphocytes # (Manual) Monocytes # (Manual) Eosinophils # (Manual) APTT POC ABG pH ABG pH POC ABG pCO2 POC ABG pO2 ABG pO2 ABG HCO3 ABG O2 Saturation ABG Base Excess ABG Hemoglobin VBG pH Oxyhemoglobin Sodium 153 H Potassium Chloride 111.2 H Carbon Dioxide 31 H BUN 28 H Creatinine Glucose 248 H POC Glucose 300 H Lactic Acid Calcium Phosphorus Total Bilirubin AST ALT C-Reactive Protein Total Protein Albumin Triglycerides Amylase Lipase Urine WBC (Auto) Vancomycin Trough Crossmatch 12/17/17 12/17/17 12/17/17 05:15 05:38 10:16 WBC RBC Hgb Hct MCV MCH MCHC RDW Plt Count Lymph % (Auto) Eos % (Auto) [place] # Eos # Baso # Seg Neutrophils % Seg Neuts % (Manual) Lymphocytes % (Manual) Monocytes % (Manual) Eosinophils % (Manual) Nucleated RBC % Seg Neutrophils # Seg Neutrophils # Man Lymphocytes # (Manual) Monocytes # (Manual) Eosinophils # (Manual) APTT POC ABG pH ABG pH POC ABG pCO2 50.3 H POC ABG pO2 120 H ABG pO2 ABG HCO3 ABG O2 Saturation ABG Base Excess ABG Hemoglobin VBG pH Oxyhemoglobin Sodium Potassium Chloride Carbon Dioxide BUN Creatinine Glucose POC Glucose 231 H 196 H Lactic Acid Calcium Phosphorus Total Bilirubin AST ALT C-Reactive Protein Total Protein Albumin Triglycerides Amylase Lipase Urine WBC (Auto) Vancomycin Trough Crossmatch 12/17/17 12/17/17 12/17/17 14:22 18:14 21:35 WBC RBC Hgb Hct MCV MCH MCHC RDW Plt Count Lymph % (Auto) Eos % (Auto) [place] # Eos # Baso # Seg Neutrophils % Seg Neuts % (Manual) Lymphocytes % (Manual) Monocytes % (Manual) Eosinophils % (Manual) Nucleated RBC % Seg Neutrophils # Seg Neutrophils # Man Lymphocytes # (Manual) Monocytes # (Manual) Eosinophils # (Manual) APTT POC ABG pH ABG pH POC ABG pCO2 POC ABG pO2 ABG pO2 ABG HCO3 ABG O2 Saturation ABG Base Excess ABG Hemoglobin VBG pH Oxyhemoglobin Sodium Potassium Chloride Carbon Dioxide BUN Creatinine Glucose POC Glucose 234 H 215 H 159 H Lactic Acid Calcium Phosphorus Total Bilirubin AST ALT C-Reactive Protein Total Protein Albumin Triglycerides Amylase Lipase Urine WBC (Auto) Vancomycin Trough Crossmatch 12/18/17 12/18/17 12/18/17 00:53 02:58 06:03 WBC RBC Hgb Hct MCV MCH MCHC RDW Plt Count Lymph % (Auto) Eos % (Auto) [place] # Eos # Baso # Seg Neutrophils % Seg Neuts % (Manual) Lymphocytes % (Manual) Monocytes % (Manual) Eosinophils % (Manual) Nucleated RBC % Seg Neutrophils # Seg Neutrophils # Man Lymphocytes # (Manual) Monocytes # (Manual) Eosinophils # (Manual) APTT POC ABG pH ABG pH POC ABG pCO2 56.4 H POC ABG pO2 46 L ABG pO2 ABG HCO3 ABG O2 Saturation ABG Base Excess ABG Hemoglobin VBG pH Oxyhemoglobin Sodium Potassium Chloride Carbon Dioxide BUN Creatinine Glucose POC Glucose 176 H 143 H Lactic Acid Calcium Phosphorus Total Bilirubin AST ALT C-Reactive Protein Total Protein Albumin Triglycerides Amylase Lipase Urine WBC (Auto) Vancomycin Trough Crossmatch 12/18/17 12/18/17 12/18/17 07:59 09:20 09:20 WBC 27.4 H RBC 3.57 L Hgb 11.4 L Hct MCV 101 H MCH MCHC RDW Plt Count 64 L Lymph % (Auto) Eos % (Auto) [place] # Eos # Baso # Seg Neutrophils % Seg Neuts % (Manual) Lymphocytes % (Manual) Monocytes % (Manual) Eosinophils % (Manual) Nucleated RBC % Seg Neutrophils # Seg Neutrophils # Man Lymphocytes # (Manual) Monocytes # (Manual) Eosinophils # (Manual) APTT POC ABG pH ABG pH POC ABG pCO2 POC ABG pO2 ABG pO2 ABG HCO3 ABG O2 Saturation ABG Base Excess ABG Hemoglobin VBG pH Oxyhemoglobin Sodium 152 H Potassium Chloride 107.9 H Carbon Dioxide 34 H BUN 23 H Creatinine 0.7 L Glucose 181 H POC Glucose 197 H Lactic Acid Calcium Phosphorus Total Bilirubin AST ALT C-Reactive Protein Total Protein Albumin Triglycerides Amylase Lipase Urine WBC (Auto) Vancomycin Trough Crossmatch 12/18/17 12/18/17 12/18/17 10:22 15:03 18:15 WBC RBC Hgb Hct MCV MCH MCHC RDW Plt Count Lymph % (Auto) Eos % (Auto) [place] # Eos # Baso # Seg Neutrophils % Seg Neuts % (Manual) Lymphocytes % (Manual) Monocytes % (Manual) Eosinophils % (Manual) Nucleated RBC % Seg Neutrophils # Seg Neutrophils # Man Lymphocytes # (Manual) Monocytes # (Manual) Eosinophils # (Manual) APTT POC ABG pH ABG pH POC ABG pCO2 POC ABG pO2 ABG pO2 ABG HCO3 ABG O2 Saturation ABG Base Excess ABG Hemoglobin VBG pH Oxyhemoglobin Sodium Potassium Chloride Carbon Dioxide BUN Creatinine Glucose POC Glucose 195 H 225 H 238 H Lactic Acid Calcium Phosphorus Total Bilirubin AST ALT C-Reactive Protein Total Protein Albumin Triglycerides Amylase Lipase Urine WBC (Auto) Vancomycin Trough Crossmatch 12/18/17 12/18/17 12/19/17 18:29 21:53 00:18 WBC RBC Hgb Hct MCV MCH MCHC RDW Plt Count Lymph % (Auto) Eos % (Auto) [place] # Eos # Baso # Seg Neutrophils % Seg Neuts % (Manual) Lymphocytes % (Manual) Monocytes % (Manual) Eosinophils % (Manual) Nucleated RBC % Seg Neutrophils # Seg Neutrophils # Man Lymphocytes # (Manual) Monocytes # (Manual) Eosinophils # (Manual) APTT POC ABG pH 7.476 H ABG pH POC ABG pCO2 50.4 H POC ABG pO2 158 H ABG pO2 ABG HCO3 ABG O2 Saturation ABG Base Excess ABG Hemoglobin VBG pH Oxyhemoglobin Sodium Potassium Chloride Carbon Dioxide BUN Creatinine Glucose POC Glucose 231 H 263 H Lactic Acid Calcium Phosphorus Total Bilirubin AST ALT C-Reactive Protein Total Protein Albumin Triglycerides Amylase Lipase Urine WBC (Auto) Vancomycin Trough Crossmatch 12/19/17 12/19/17 12/19/17 02:09 04:07 04:07 WBC 25.9 H RBC 3.25 L Hgb 10.6 L Hct 32.8 L MCV 101 H MCH 33 H MCHC RDW Plt Count 67 L Lymph % (Auto) Eos % (Auto) [place] # Eos # Baso # Seg Neutrophils % Seg Neuts % (Manual) Lymphocytes % (Manual) 4.0 L Monocytes % (Manual) Eosinophils % (Manual) Nucleated RBC % Seg Neutrophils # Seg Neutrophils # Man 14.8 H Lymphocytes # (Manual) 1.0 L Monocytes # (Manual) Eosinophils # (Manual) APTT POC ABG pH ABG pH POC ABG pCO2 POC ABG pO2 ABG pO2 ABG HCO3 ABG O2 Saturation ABG Base Excess ABG Hemoglobin VBG pH Oxyhemoglobin Sodium 148 H Potassium Chloride Carbon Dioxide BUN 31 H Creatinine Glucose 314 H POC Glucose 300 H Lactic Acid Calcium 8.1 L Phosphorus Total Bilirubin AST ALT C-Reactive Protein Total Protein Albumin Triglycerides Amylase Lipase Urine WBC (Auto) Vancomycin Trough Crossmatch 12/19/17 12/19/17 12/19/17 05:15 05:41 07:57 WBC RBC Hgb Hct MCV MCH MCHC RDW Plt Count Lymph % (Auto) Eos % (Auto) [place] # Eos # Baso # Seg Neutrophils % Seg Neuts % (Manual) Lymphocytes % (Manual) Monocytes % (Manual) Eosinophils % (Manual) Nucleated RBC % Seg Neutrophils # Seg Neutrophils # Man Lymphocytes # (Manual) Monocytes # (Manual) Eosinophils # (Manual) APTT POC ABG pH 7.507 H ABG pH POC ABG pCO2 POC ABG pO2 ABG pO2 ABG HCO3 ABG O2 Saturation ABG Base Excess ABG Hemoglobin VBG pH Oxyhemoglobin Sodium Potassium Chloride Carbon Dioxide BUN Creatinine Glucose POC Glucose 331 H 307 H Lactic Acid Calcium Phosphorus Total Bilirubin AST ALT C-Reactive Protein Total Protein Albumin Triglycerides Amylase Lipase Urine WBC (Auto) Vancomycin Trough Crossmatch 12/19/17 12/19/17 12/19/17 10:21 14:48 17:59 WBC RBC Hgb Hct MCV MCH MCHC RDW Plt Count Lymph % (Auto) Eos % (Auto) [place] # Eos # Baso # Seg Neutrophils % Seg Neuts % (Manual) Lymphocytes % (Manual) Monocytes % (Manual) Eosinophils % (Manual) Nucleated RBC % Seg Neutrophils # Seg Neutrophils # Man Lymphocytes # (Manual) Monocytes # (Manual) Eosinophils # (Manual) APTT POC ABG pH ABG pH POC ABG pCO2 POC ABG pO2 ABG pO2 ABG HCO3 ABG O2 Saturation ABG Base Excess ABG Hemoglobin VBG pH Oxyhemoglobin Sodium Potassium Chloride Carbon Dioxide BUN Creatinine Glucose POC Glucose 358 H 327 H 355 H Lactic Acid Calcium Phosphorus Total Bilirubin AST ALT C-Reactive Protein Total Protein Albumin Triglycerides Amylase Lipase Urine WBC (Auto) Vancomycin Trough Crossmatch 12/19/17 12/20/17 12/20/17 21:38 02:21 03:42 WBC RBC Hgb Hct MCV MCH MCHC RDW Plt Count Lymph % (Auto) Eos % (Auto) [place] # Eos # Baso # Seg Neutrophils % Seg Neuts % (Manual) Lymphocytes % (Manual) Monocytes % (Manual) Eosinophils % (Manual) Nucleated RBC % Seg Neutrophils # Seg Neutrophils # Man Lymphocytes # (Manual) Monocytes # (Manual) Eosinophils # (Manual) APTT POC ABG pH 7.494 H ABG pH POC ABG pCO2 POC ABG pO2 ABG pO2 ABG HCO3 ABG O2 Saturation ABG Base Excess ABG Hemoglobin VBG pH Oxyhemoglobin Sodium Potassium Chloride Carbon Dioxide BUN Creatinine Glucose POC Glucose 329 H 354 H Lactic Acid Calcium Phosphorus Total Bilirubin AST ALT C-Reactive Protein Total Protein Albumin Triglycerides Amylase Lipase Urine WBC (Auto) Vancomycin Trough Crossmatch 12/20/17 12/20/17 12/20/17 04:08 04:08 04:08 WBC 22.7 H RBC 3.26 L Hgb 10.6 L Hct 32.9 L MCV 101 H MCH 33 H MCHC RDW Plt Count 78 L Lymph % (Auto) Eos % (Auto) [place] # Eos # Baso # Seg Neutrophils % Seg Neuts % (Manual) 80.0 H Lymphocytes % (Manual) 6.0 L Monocytes % (Manual) Eosinophils % (Manual) Nucleated RBC % Seg Neutrophils # Seg Neutrophils # Man 18.2 H Lymphocytes # (Manual) Monocytes # (Manual) Eosinophils # (Manual) APTT POC ABG pH ABG pH POC ABG pCO2 POC ABG pO2 ABG pO2 ABG HCO3 ABG O2 Saturation ABG Base Excess ABG Hemoglobin VBG pH Oxyhemoglobin Sodium Potassium Chloride Carbon Dioxide 31 H BUN 30 H Creatinine 0.6 L Glucose 365 H POC Glucose Lactic Acid Calcium Phosphorus Total Bilirubin AST ALT C-Reactive Protein Total Protein Albumin Triglycerides 981 H Amylase Lipase Urine WBC (Auto) Vancomycin Trough Crossmatch 12/20/17 12/20/17 12/20/17 05:15 10:47 13:40 WBC RBC Hgb Hct MCV MCH MCHC RDW Plt Count Lymph % (Auto) Eos % (Auto) [place] # Eos # Baso # Seg Neutrophils % Seg Neuts % (Manual) Lymphocytes % (Manual) Monocytes % (Manual) Eosinophils % (Manual) Nucleated RBC % Seg Neutrophils # Seg Neutrophils # Man Lymphocytes # (Manual) Monocytes # (Manual) Eosinophils # (Manual) APTT POC ABG pH ABG pH POC ABG pCO2 POC ABG pO2 ABG pO2 ABG HCO3 ABG O2 Saturation ABG Base Excess ABG Hemoglobin VBG pH Oxyhemoglobin Sodium Potassium Chloride Carbon Dioxide BUN Creatinine Glucose POC Glucose 342 H 330 H Lactic Acid Calcium Phosphorus Total Bilirubin AST ALT C-Reactive Protein 7.10 H Total Protein Albumin Triglycerides Amylase Lipase Urine WBC (Auto) Vancomycin Trough Crossmatch 12/20/17 12/20/17 12/20/17 13:40 14:52 16:55 WBC RBC Hgb Hct MCV MCH MCHC RDW Plt Count Lymph % (Auto) Eos % (Auto) [place] # Eos # Baso # Seg Neutrophils % Seg Neuts % (Manual) Lymphocytes % (Manual) Monocytes % (Manual) Eosinophils % (Manual) Nucleated RBC % Seg Neutrophils # Seg Neutrophils # Man Lymphocytes # (Manual) Monocytes # (Manual) Eosinophils # (Manual) APTT POC ABG pH 7.484 H ABG pH POC ABG pCO2 POC ABG pO2 ABG pO2 ABG HCO3 ABG O2 Saturation ABG Base Excess ABG Hemoglobin VBG pH Oxyhemoglobin Sodium Potassium Chloride Carbon Dioxide BUN Creatinine Glucose POC Glucose 293 H Lactic Acid Calcium Phosphorus Total Bilirubin AST ALT C-Reactive Protein Total Protein Albumin Triglycerides 1042 H Amylase Lipase Urine WBC (Auto) Vancomycin Trough Crossmatch 12/20/17 12/20/17 12/21/17 18:00 21:58 02:05 WBC RBC Hgb Hct MCV MCH MCHC RDW Plt Count Lymph % (Auto) Eos % (Auto) [place] # Eos # Baso # Seg Neutrophils % Seg Neuts % (Manual) Lymphocytes % (Manual) Monocytes % (Manual) Eosinophils % (Manual) Nucleated RBC % Seg Neutrophils # Seg Neutrophils # Man Lymphocytes # (Manual) Monocytes # (Manual) Eosinophils # (Manual) APTT POC ABG pH ABG pH POC ABG pCO2 POC ABG pO2 ABG pO2 ABG HCO3 ABG O2 Saturation ABG Base Excess ABG Hemoglobin VBG pH Oxyhemoglobin Sodium Potassium Chloride Carbon Dioxide BUN Creatinine Glucose POC Glucose 268 H 272 H 229 H Lactic Acid Calcium Phosphorus Total Bilirubin AST ALT C-Reactive Protein Total Protein Albumin Triglycerides Amylase Lipase Urine WBC (Auto) Vancomycin Trough Crossmatch 12/21/17 12/21/17 12/21/17 03:59 06:23 08:57 WBC RBC Hgb Hct MCV MCH MCHC RDW Plt Count Lymph % (Auto) Eos % (Auto) [place] # Eos # Baso # Seg Neutrophils % Seg Neuts % (Manual) Lymphocytes % (Manual) Monocytes % (Manual) Eosinophils % (Manual) Nucleated RBC % Seg Neutrophils # Seg Neutrophils # Man Lymphocytes # (Manual) Monocytes # (Manual) Eosinophils # (Manual) APTT POC ABG pH 7.474 H ABG pH POC ABG pCO2 POC ABG pO2 71 L ABG pO2 ABG HCO3 ABG O2 Saturation ABG Base Excess ABG Hemoglobin VBG pH Oxyhemoglobin Sodium Potassium Chloride Carbon Dioxide BUN Creatinine Glucose POC Glucose 182 H 217 H Lactic Acid Calcium Phosphorus Total Bilirubin AST ALT C-Reactive Protein Total Protein Albumin Triglycerides Amylase Lipase Urine WBC (Auto) Vancomycin Trough Crossmatch 12/21/17 12/21/17 12/21/17 13:59 18:00 21:20 WBC RBC Hgb Hct MCV MCH MCHC RDW Plt Count Lymph % (Auto) Eos % (Auto) [place] # Eos # Baso # Seg Neutrophils % Seg Neuts % (Manual) Lymphocytes % (Manual) Monocytes % (Manual) Eosinophils % (Manual) Nucleated RBC % Seg Neutrophils # Seg Neutrophils # Man Lymphocytes # (Manual) Monocytes # (Manual) Eosinophils # (Manual) APTT POC ABG pH ABG pH POC ABG pCO2 POC ABG pO2 ABG pO2 ABG HCO3 ABG O2 Saturation ABG Base Excess ABG Hemoglobin VBG pH Oxyhemoglobin Sodium Potassium Chloride Carbon Dioxide BUN Creatinine Glucose POC Glucose 185 H 176 H 187 H Lactic Acid Calcium Phosphorus Total Bilirubin AST ALT C-Reactive Protein Total Protein Albumin Triglycerides Amylase Lipase Urine WBC (Auto) Vancomycin Trough Crossmatch 12/21/17 12/22/17 12/22/17 23:48 04:39 05:30 WBC RBC Hgb Hct MCV MCH MCHC RDW Plt Count Lymph % (Auto) Eos % (Auto) [place] # Eos # Baso # Seg Neutrophils % Seg Neuts % (Manual) Lymphocytes % (Manual) Monocytes % (Manual) Eosinophils % (Manual) Nucleated RBC % Seg Neutrophils # Seg Neutrophils # Man Lymphocytes # (Manual) Monocytes # (Manual) Eosinophils # (Manual) APTT POC ABG pH 7.528 H ABG pH POC ABG pCO2 POC ABG pO2 63 L ABG pO2 ABG HCO3 ABG O2 Saturation ABG Base Excess ABG Hemoglobin VBG pH Oxyhemoglobin Sodium Potassium Chloride Carbon Dioxide BUN Creatinine Glucose POC Glucose 126 H 117 H Lactic Acid Calcium Phosphorus Total Bilirubin AST ALT C-Reactive Protein Total Protein Albumin Triglycerides Amylase Lipase Urine WBC (Auto) Vancomycin Trough Crossmatch 12/22/17 12/22/17 12/22/17 09:12 10:34 10:34 WBC 29.5 H RBC 3.44 L Hgb 11.2 L Hct 34.2 L MCV 99 H MCH 33 H MCHC RDW 13.1 L Plt Count 97 L Lymph % (Auto) Eos % (Auto) [place] # Eos # Baso # Seg Neutrophils % Seg Neuts % (Manual) 88.0 H Lymphocytes % (Manual) 5.0 L Monocytes % (Manual) Eosinophils % (Manual) Nucleated RBC % Seg Neutrophils # Seg Neutrophils # Man 26.0 H Lymphocytes # (Manual) Monocytes # (Manual) Eosinophils # (Manual) APTT POC ABG pH ABG pH POC ABG pCO2 POC ABG pO2 ABG pO2 ABG HCO3 ABG O2 Saturation ABG Base Excess ABG Hemoglobin VBG pH Oxyhemoglobin Sodium 146 H Potassium 3.1 L Chloride Carbon Dioxide BUN 25 H Creatinine 0.7 L Glucose 146 H POC Glucose 168 H Lactic Acid Calcium 8.1 L Phosphorus Total Bilirubin AST ALT C-Reactive Protein Total Protein Albumin Triglycerides Amylase Lipase Urine WBC (Auto) Vancomycin Trough Crossmatch 12/22/17 12/22/17 12/22/17 14:51 17:21 21:43 WBC RBC Hgb Hct MCV MCH MCHC RDW Plt Count Lymph % (Auto) Eos % (Auto) [place] # Eos # Baso # Seg Neutrophils % Seg Neuts % (Manual) Lymphocytes % (Manual) Monocytes % (Manual) Eosinophils % (Manual) Nucleated RBC % Seg Neutrophils # Seg Neutrophils # Man Lymphocytes # (Manual) Monocytes # (Manual) Eosinophils # (Manual) APTT POC ABG pH ABG pH POC ABG pCO2 POC ABG pO2 ABG pO2 ABG HCO3 ABG O2 Saturation ABG Base Excess ABG Hemoglobin VBG pH Oxyhemoglobin Sodium Potassium Chloride Carbon Dioxide BUN Creatinine Glucose POC Glucose 125 H 110 H 153 H Lactic Acid Calcium Phosphorus Total Bilirubin AST ALT C-Reactive Protein Total Protein Albumin Triglycerides Amylase Lipase Urine WBC (Auto) Vancomycin Trough Crossmatch 12/23/17 12/23/17 12/23/17 04:33 05:28 09:25 WBC 31.4 H RBC 3.05 L Hgb 9.8 L Hct 30.2 L MCV 99 H MCH MCHC RDW 12.9 L Plt Count 101 L Lymph % (Auto) Eos % (Auto) [place] # Eos # Baso # Seg Neutrophils % Seg Neuts % (Manual) 97 H Lymphocytes % (Manual) 2 L Monocytes % (Manual) Eosinophils % (Manual) Nucleated RBC % Seg Neutrophils # Seg Neutrophils # Man 31.1 H Lymphocytes # (Manual) 0.5 L Monocytes # (Manual) Eosinophils # (Manual) APTT POC ABG pH 7.573 H ABG pH POC ABG pCO2 31.0 L POC ABG pO2 63 L ABG pO2 ABG HCO3 ABG O2 Saturation ABG Base Excess ABG Hemoglobin VBG pH Oxyhemoglobin Sodium Potassium Chloride Carbon Dioxide BUN Creatinine Glucose POC Glucose 124 H Lactic Acid Calcium Phosphorus Total Bilirubin AST ALT C-Reactive Protein Total Protein Albumin Triglycerides Amylase Lipase Urine WBC (Auto) Vancomycin Trough Crossmatch 12/23/17 12/23/17 12/23/17 09:25 10:08 14:20 WBC RBC Hgb Hct MCV MCH MCHC RDW Plt Count Lymph % (Auto) Eos % (Auto) [place] # Eos # Baso # Seg Neutrophils % Seg Neuts % (Manual) Lymphocytes % (Manual) Monocytes % (Manual) Eosinophils % (Manual) Nucleated RBC % Seg Neutrophils # Seg Neutrophils # Man Lymphocytes # (Manual) Monocytes # (Manual) Eosinophils # (Manual) APTT POC ABG pH ABG pH POC ABG pCO2 POC ABG pO2 ABG pO2 ABG HCO3 ABG O2 Saturation ABG Base Excess ABG Hemoglobin VBG pH Oxyhemoglobin Sodium Potassium 3.1 L Chloride Carbon Dioxide BUN Creatinine 0.6 L Glucose 169 H POC Glucose 171 H 211 H Lactic Acid Calcium 7.9 L Phosphorus Total Bilirubin AST ALT C-Reactive Protein Total Protein Albumin Triglycerides Amylase Lipase Urine WBC (Auto) Vancomycin Trough Crossmatch 12/23/17 12/23/17 12/24/17 18:59 21:49 01:47 WBC RBC Hgb Hct MCV MCH MCHC RDW Plt Count Lymph % (Auto) Eos % (Auto) [place] # Eos # Baso # Seg Neutrophils % Seg Neuts % (Manual) Lymphocytes % (Manual) Monocytes % (Manual) Eosinophils % (Manual) Nucleated RBC % Seg Neutrophils # Seg Neutrophils # Man Lymphocytes # (Manual) Monocytes # (Manual) Eosinophils # (Manual) APTT POC ABG pH ABG pH POC ABG pCO2 POC ABG pO2 ABG pO2 ABG HCO3 ABG O2 Saturation ABG Base Excess ABG Hemoglobin VBG pH Oxyhemoglobin Sodium Potassium Chloride Carbon Dioxide BUN Creatinine Glucose POC Glucose 175 H 146 H 143 H Lactic Acid Calcium Phosphorus Total Bilirubin AST ALT C-Reactive Protein Total Protein Albumin Triglycerides Amylase Lipase Urine WBC (Auto) Vancomycin Trough Crossmatch 12/24/17 12/24/17 12/24/17 05:40 10:12 13:12 WBC RBC Hgb Hct MCV MCH MCHC RDW Plt Count Lymph % (Auto) Eos % (Auto) [place] # Eos # Baso # Seg Neutrophils % Seg Neuts % (Manual) Lymphocytes % (Manual) Monocytes % (Manual) Eosinophils % (Manual) Nucleated RBC % Seg Neutrophils # Seg Neutrophils # Man Lymphocytes # (Manual) Monocytes # (Manual) Eosinophils # (Manual) APTT POC ABG pH 7.558 H ABG pH POC ABG pCO2 27.6 L POC ABG pO2 71 L ABG pO2 ABG HCO3 ABG O2 Saturation ABG Base Excess ABG Hemoglobin VBG pH Oxyhemoglobin Sodium Potassium Chloride Carbon Dioxide BUN Creatinine Glucose POC Glucose 118 H 111 H Lactic Acid Calcium Phosphorus Total Bilirubin AST ALT C-Reactive Protein Total Protein Albumin Triglycerides Amylase Lipase Urine WBC (Auto) Vancomycin Trough Crossmatch 12/24/17 12/24/17 12/24/17 16:26 20:44 21:49 WBC RBC Hgb Hct MCV MCH MCHC RDW Plt Count Lymph % (Auto) Eos % (Auto) [place] # Eos # Baso # Seg Neutrophils % Seg Neuts % (Manual) Lymphocytes % (Manual) Monocytes % (Manual) Eosinophils % (Manual) Nucleated RBC % Seg Neutrophils # Seg Neutrophils # Man Lymphocytes # (Manual) Monocytes # (Manual) Eosinophils # (Manual) APTT POC ABG pH ABG pH POC ABG pCO2 POC ABG pO2 ABG pO2 ABG HCO3 ABG O2 Saturation ABG Base Excess ABG Hemoglobin VBG pH Oxyhemoglobin Sodium Potassium Chloride Carbon Dioxide BUN Creatinine Glucose POC Glucose 113 H 124 H 115 H Lactic Acid Calcium Phosphorus Total Bilirubin AST ALT C-Reactive Protein Total Protein Albumin Triglycerides Amylase Lipase Urine WBC (Auto) Vancomycin Trough Crossmatch 12/24/17 12/25/17 12/25/17 Unknown 02:26 03:38 WBC RBC Hgb Hct MCV MCH MCHC RDW Plt Count Lymph % (Auto) Eos % (Auto) [place] # Eos # Baso # Seg Neutrophils % Seg Neuts % (Manual) Lymphocytes % (Manual) Monocytes % (Manual) Eosinophils % (Manual) Nucleated RBC % Seg Neutrophils # Seg Neutrophils # Man Lymphocytes # (Manual) Monocytes # (Manual) Eosinophils # (Manual) APTT POC ABG pH 7.503 H ABG pH POC ABG pCO2 POC ABG pO2 66 L ABG pO2 ABG HCO3 ABG O2 Saturation ABG Base Excess ABG Hemoglobin VBG pH Oxyhemoglobin Sodium Potassium 3.0 L Chloride Carbon Dioxide BUN Creatinine 0.5 L Glucose 166 H POC Glucose 106 H Lactic Acid Calcium 7.8 L Phosphorus Total Bilirubin AST ALT C-Reactive Protein Total Protein Albumin Triglycerides Amylase Lipase Urine WBC (Auto) Vancomycin Trough Crossmatch 12/25/17 12/25/17 12/25/17 04:58 12:58 15:06 WBC RBC Hgb Hct MCV MCH MCHC RDW Plt Count Lymph % (Auto) Eos % (Auto) [place] # Eos # Baso # Seg Neutrophils % Seg Neuts % (Manual) Lymphocytes % (Manual) Monocytes % (Manual) Eosinophils % (Manual) Nucleated RBC % Seg Neutrophils # Seg Neutrophils # Man Lymphocytes # (Manual) Monocytes # (Manual) Eosinophils # (Manual) APTT POC ABG pH ABG pH POC ABG pCO2 POC ABG pO2 ABG pO2 ABG HCO3 ABG O2 Saturation ABG Base Excess ABG Hemoglobin VBG pH Oxyhemoglobin Sodium Potassium Chloride Carbon Dioxide BUN Creatinine Glucose POC Glucose 113 H 118 H Lactic Acid Calcium Phosphorus Total Bilirubin AST ALT C-Reactive Protein Total Protein Albumin Triglycerides Amylase Lipase Urine WBC (Auto) Vancomycin Trough 22.5 H Crossmatch 12/25/17 12/25/17 12/25/17 17:59 21:33 Unknown WBC 20.5 H RBC 2.75 L Hgb 9.1 L Hct 27.1 L MCV 99 H MCH 33 H MCHC RDW Plt Count 126 L Lymph % (Auto) Eos % (Auto) [place] # Eos # Baso # Seg Neutrophils % Seg Neuts % (Manual) 89.0 H Lymphocytes % (Manual) 6.0 L Monocytes % (Manual) Eosinophils % (Manual) Nucleated RBC % Seg Neutrophils # Seg Neutrophils # Man 18.2 H Lymphocytes # (Manual) Monocytes # (Manual) Eosinophils # (Manual) APTT POC ABG pH ABG pH POC ABG pCO2 POC ABG pO2 ABG pO2 ABG HCO3 ABG O2 Saturation ABG Base Excess ABG Hemoglobin VBG pH Oxyhemoglobin Sodium Potassium Chloride Carbon Dioxide BUN Creatinine Glucose POC Glucose 145 H 167 H Lactic Acid Calcium Phosphorus Total Bilirubin AST ALT C-Reactive Protein Total Protein Albumin Triglycerides Amylase Lipase Urine WBC (Auto) Vancomycin Trough Crossmatch 12/25/17 12/26/17 12/26/17 Unknown 02:26 05:29 WBC RBC Hgb Hct MCV MCH MCHC RDW Plt Count Lymph % (Auto) Eos % (Auto) [place] # Eos # Baso # Seg Neutrophils % Seg Neuts % (Manual) Lymphocytes % (Manual) Monocytes % (Manual) Eosinophils % (Manual) Nucleated RBC % Seg Neutrophils # Seg Neutrophils # Man Lymphocytes # (Manual) Monocytes # (Manual) Eosinophils # (Manual) APTT POC ABG pH ABG pH POC ABG pCO2 POC ABG pO2 ABG pO2 ABG HCO3 ABG O2 Saturation ABG Base Excess ABG Hemoglobin VBG pH Oxyhemoglobin Sodium Potassium 2.8 L* Chloride Carbon Dioxide BUN Creatinine 0.6 L Glucose POC Glucose 167 H 216 H Lactic Acid Calcium 7.4 L Phosphorus Total Bilirubin AST ALT C-Reactive Protein Total Protein Albumin Triglycerides Amylase Lipase Urine WBC (Auto) Vancomycin Trough Crossmatch 12/26/17 12/26/17 12/26/17 10:21 14:30 18:35 WBC RBC Hgb Hct MCV MCH MCHC RDW Plt Count Lymph % (Auto) Eos % (Auto) [place] # Eos # Baso # Seg Neutrophils % Seg Neuts % (Manual) Lymphocytes % (Manual) Monocytes % (Manual) Eosinophils % (Manual) Nucleated RBC % Seg Neutrophils # Seg Neutrophils # Man Lymphocytes # (Manual) Monocytes # (Manual) Eosinophils # (Manual) APTT POC ABG pH ABG pH POC ABG pCO2 POC ABG pO2 ABG pO2 ABG HCO3 ABG O2 Saturation ABG Base Excess ABG Hemoglobin VBG pH Oxyhemoglobin Sodium Potassium Chloride Carbon Dioxide BUN Creatinine Glucose POC Glucose 164 H 157 H 146 H Lactic Acid Calcium Phosphorus Total Bilirubin AST ALT C-Reactive Protein Total Protein Albumin Triglycerides Amylase Lipase Urine WBC (Auto) Vancomycin Trough Crossmatch 12/26/17 12/26/17 12/27/17 21:21 Unknown 01:54 WBC RBC Hgb Hct MCV MCH MCHC RDW Plt Count Lymph % (Auto) Eos % (Auto) [place] # Eos # Baso # Seg Neutrophils % Seg Neuts % (Manual) Lymphocytes % (Manual) Monocytes % (Manual) Eosinophils % (Manual) Nucleated RBC % Seg Neutrophils # Seg Neutrophils # Man Lymphocytes # (Manual) Monocytes # (Manual) Eosinophils # (Manual) APTT POC ABG pH ABG pH POC ABG pCO2 POC ABG pO2 ABG pO2 ABG HCO3 ABG O2 Saturation ABG Base Excess ABG Hemoglobin VBG pH Oxyhemoglobin Sodium Potassium 3.0 L Chloride Carbon Dioxide BUN Creatinine 0.5 L Glucose 166 H POC Glucose 132 H 157 H Lactic Acid Calcium 7.8 L Phosphorus Total Bilirubin AST ALT C-Reactive Protein Total Protein Albumin Triglycerides Amylase Lipase Urine WBC (Auto) Vancomycin Trough Crossmatch 12/27/17 12/27/17 12/27/17 05:20 05:20 05:44 WBC 26.4 H RBC 2.83 L Hgb 9.3 L Hct 27.6 L MCV 98 H MCH 33 H MCHC RDW Plt Count Lymph % (Auto) Eos % (Auto) [place] # Eos # Baso # Seg Neutrophils % Seg Neuts % (Manual) 85.0 H Lymphocytes % (Manual) 5.0 L Monocytes % (Manual) Eosinophils % (Manual) Nucleated RBC % Seg Neutrophils # Seg Neutrophils # Man 22.4 H Lymphocytes # (Manual) Monocytes # (Manual) Eosinophils # (Manual) 0.5 H APTT POC ABG pH ABG pH POC ABG pCO2 POC ABG pO2 ABG pO2 ABG HCO3 ABG O2 Saturation ABG Base Excess ABG Hemoglobin VBG pH Oxyhemoglobin Sodium Potassium 2.3 L* D Chloride Carbon Dioxide BUN 7 L Creatinine 0.6 L Glucose 123 H POC Glucose 128 H Lactic Acid Calcium 8.1 L Phosphorus Total Bilirubin AST ALT C-Reactive Protein Total Protein Albumin Triglycerides Amylase Lipase Urine WBC (Auto) Vancomycin Trough Crossmatch 12/27/17 12/27/17 12/27/17 10:04 14:44 15:30 WBC RBC Hgb Hct MCV MCH MCHC RDW Plt Count Lymph % (Auto) Eos % (Auto) [place] # Eos # Baso # Seg Neutrophils % Seg Neuts % (Manual) Lymphocytes % (Manual) Monocytes % (Manual) Eosinophils % (Manual) Nucleated RBC % Seg Neutrophils # Seg Neutrophils # Man Lymphocytes # (Manual) Monocytes # (Manual) Eosinophils # (Manual) APTT POC ABG pH ABG pH POC ABG pCO2 POC ABG pO2 ABG pO2 ABG HCO3 ABG O2 Saturation ABG Base Excess ABG Hemoglobin VBG pH Oxyhemoglobin Sodium Potassium 3.1 L D Chloride Carbon Dioxide BUN Creatinine Glucose POC Glucose 115 H 128 H Lactic Acid Calcium Phosphorus Total Bilirubin AST ALT C-Reactive Protein Total Protein Albumin Triglycerides Amylase Lipase Urine WBC (Auto) Vancomycin Trough Crossmatch 12/28/17 12/28/17 12/28/17 00:39 02:13 05:17 WBC RBC Hgb Hct MCV MCH MCHC RDW Plt Count Lymph % (Auto) Eos % (Auto) [place] # Eos # Baso # Seg Neutrophils % Seg Neuts % (Manual) Lymphocytes % (Manual) Monocytes % (Manual) Eosinophils % (Manual) Nucleated RBC % Seg Neutrophils # Seg Neutrophils # Man Lymphocytes # (Manual) Monocytes # (Manual) Eosinophils # (Manual) APTT POC ABG pH ABG pH 7.497 H POC ABG pCO2 POC ABG pO2 ABG pO2 71.4 L ABG HCO3 29.9 H ABG O2 Saturation ABG Base Excess 6.2 H ABG Hemoglobin 7.9 L VBG pH Oxyhemoglobin 94.9 L Sodium Potassium Chloride Carbon Dioxide BUN Creatinine Glucose POC Glucose 112 H 108 H Lactic Acid Calcium Phosphorus Total Bilirubin AST ALT C-Reactive Protein Total Protein Albumin Triglycerides Amylase Lipase Urine WBC (Auto) Vancomycin Trough Crossmatch 12/28/17 12/28/17 12/28/17 08:47 08:47 09:10 WBC 28.1 H RBC 2.76 L Hgb 9.1 L Hct 27.0 L MCV 98 H MCH 33 H MCHC RDW Plt Count Lymph % (Auto) Eos % (Auto) [place] # Eos # Baso # Seg Neutrophils % Seg Neuts % (Manual) Lymphocytes % (Manual) Monocytes % (Manual) Eosinophils % (Manual) Nucleated RBC % Seg Neutrophils # Seg Neutrophils # Man Lymphocytes # (Manual) Monocytes # (Manual) Eosinophils # (Manual) APTT POC ABG pH ABG pH POC ABG pCO2 POC ABG pO2 ABG pO2 ABG HCO3 ABG O2 Saturation ABG Base Excess ABG Hemoglobin VBG pH Oxyhemoglobin Sodium Potassium 2.2 L* D Chloride Carbon Dioxide BUN 5 L Creatinine 0.5 L Glucose 106 H POC Glucose Lactic Acid Calcium 8.3 L Phosphorus 2.20 L Total Bilirubin AST ALT C-Reactive Protein Total Protein Albumin Triglycerides Amylase Lipase Urine WBC (Auto) Vancomycin Trough Crossmatch 12/28/17 12/28/17 12/28/17 13:28 14:22 18:48 WBC RBC Hgb Hct MCV MCH MCHC RDW Plt Count Lymph % (Auto) Eos % (Auto) [place] # Eos # Baso # Seg Neutrophils % Seg Neuts % (Manual) Lymphocytes % (Manual) Monocytes % (Manual) Eosinophils % (Manual) Nucleated RBC % Seg Neutrophils # Seg Neutrophils # Man Lymphocytes # (Manual) Monocytes # (Manual) Eosinophils # (Manual) APTT POC ABG pH ABG pH 7.476 H POC ABG pCO2 POC ABG pO2 ABG pO2 167.7 H ABG HCO3 30.9 H ABG O2 Saturation 99.1 H ABG Base Excess 6.7 H ABG Hemoglobin 8.5 L VBG pH Oxyhemoglobin Sodium Potassium Chloride Carbon Dioxide BUN Creatinine Glucose POC Glucose 141 H 129 H Lactic Acid Calcium Phosphorus Total Bilirubin AST ALT C-Reactive Protein Total Protein Albumin Triglycerides Amylase Lipase Urine WBC (Auto) Vancomycin Trough Crossmatch 12/28/17 12/29/17 12/29/17 21:22 02:45 05:11 WBC RBC Hgb Hct MCV MCH MCHC RDW Plt Count Lymph % (Auto) Eos % (Auto) [place] # Eos # Baso # Seg Neutrophils % Seg Neuts % (Manual) Lymphocytes % (Manual) Monocytes % (Manual) Eosinophils % (Manual) Nucleated RBC % Seg Neutrophils # Seg Neutrophils # Man Lymphocytes # (Manual) Monocytes # (Manual) Eosinophils # (Manual) APTT POC ABG pH ABG pH POC ABG pCO2 POC ABG pO2 ABG pO2 ABG HCO3 ABG O2 Saturation ABG Base Excess ABG Hemoglobin VBG pH Oxyhemoglobin Sodium Potassium Chloride Carbon Dioxide BUN Creatinine Glucose POC Glucose 123 H 138 H 138 H Lactic Acid Calcium Phosphorus Total Bilirubin AST ALT C-Reactive Protein Total Protein Albumin Triglycerides Amylase Lipase Urine WBC (Auto) Vancomycin Trough Crossmatch 12/29/17 12/29/17 12/29/17 05:50 08:04 08:04 WBC 20.8 H RBC 2.26 L Hgb 7.5 L Hct 22.7 L MCV 100 H MCH 33 H MCHC RDW Plt Count Lymph % (Auto) Eos % (Auto) [place] # Eos # Baso # Seg Neutrophils % Seg Neuts % (Manual) 93.0 H Lymphocytes % (Manual) 2.0 L Monocytes % (Manual) Eosinophils % (Manual) Nucleated RBC % Seg Neutrophils # Seg Neutrophils # Man 19.3 H Lymphocytes # (Manual) 0.4 L Monocytes # (Manual) Eosinophils # (Manual) 0.7 H APTT POC ABG pH ABG pH 7.467 H POC ABG pCO2 POC ABG pO2 ABG pO2 ABG HCO3 28.2 H ABG O2 Saturation ABG Base Excess 4.0 H ABG Hemoglobin < 5.1 L VBG pH Oxyhemoglobin Sodium Potassium 3.0 L D Chloride Carbon Dioxide BUN Creatinine 0.5 L Glucose 147 H POC Glucose Lactic Acid Calcium 7.8 L Phosphorus Total Bilirubin AST ALT C-Reactive Protein Total Protein 5.6 L Albumin 2.4 L Triglycerides Amylase Lipase Urine WBC (Auto) Vancomycin Trough Crossmatch 12/29/17 12/29/17 12/29/17 08:20 10:59 14:09 WBC RBC Hgb Hct MCV MCH MCHC RDW Plt Count Lymph % (Auto) Eos % (Auto) [place] # Eos # Baso # Seg Neutrophils % Seg Neuts % (Manual) Lymphocytes % (Manual) Monocytes % (Manual) Eosinophils % (Manual) Nucleated RBC % Seg Neutrophils # Seg Neutrophils # Man Lymphocytes # (Manual) Monocytes # (Manual) Eosinophils # (Manual) APTT POC ABG pH ABG pH POC ABG pCO2 POC ABG pO2 ABG pO2 ABG HCO3 ABG O2 Saturation ABG Base Excess ABG Hemoglobin VBG pH Oxyhemoglobin Sodium Potassium Chloride Carbon Dioxide BUN Creatinine Glucose POC Glucose 153 H 186 H 183 H Lactic Acid Calcium Phosphorus Total Bilirubin AST ALT C-Reactive Protein Total Protein Albumin Triglycerides Amylase Lipase Urine WBC (Auto) Vancomycin Trough Crossmatch 12/29/17 12/29/17 12/29/17 18:03 22:05 22:56 WBC RBC Hgb Hct MCV MCH MCHC RDW Plt Count Lymph % (Auto) Eos % (Auto) [place] # Eos # Baso # Seg Neutrophils % Seg Neuts % (Manual) Lymphocytes % (Manual) Monocytes % (Manual) Eosinophils % (Manual) Nucleated RBC % Seg Neutrophils # Seg Neutrophils # Man Lymphocytes # (Manual) Monocytes # (Manual) Eosinophils # (Manual) APTT POC ABG pH ABG pH POC ABG pCO2 POC ABG pO2 ABG pO2 ABG HCO3 ABG O2 Saturation ABG Base Excess ABG Hemoglobin VBG pH Oxyhemoglobin Sodium Potassium Chloride Carbon Dioxide BUN Creatinine Glucose POC Glucose 159 H 146 H 179 H Lactic Acid Calcium Phosphorus Total Bilirubin AST ALT C-Reactive Protein Total Protein Albumin Triglycerides Amylase Lipase Urine WBC (Auto) Vancomycin Trough Crossmatch 12/30/17 12/30/17 12/30/17 02:03 04:50 04:50 WBC 18.3 H RBC 2.22 L Hgb 7.4 L Hct 23.0 L MCV 104 H MCH 33 H MCHC RDW Plt Count 137 L Lymph % (Auto) 9.0 L Eos % (Auto) [place] # Eos # 0.5 H Baso # Seg Neutrophils % 84.9 H Seg Neuts % (Manual) Lymphocytes % (Manual) Monocytes % (Manual) Eosinophils % (Manual) Nucleated RBC % Seg Neutrophils # 15.6 H Seg Neutrophils # Man Lymphocytes # (Manual) Monocytes # (Manual) Eosinophils # (Manual) APTT POC ABG pH ABG pH POC ABG pCO2 POC ABG pO2 ABG pO2 ABG HCO3 ABG O2 Saturation ABG Base Excess ABG Hemoglobin VBG pH Oxyhemoglobin Sodium 147 H Potassium 3.1 L D Chloride 107.5 H Carbon Dioxide BUN Creatinine 0.5 L Glucose 120 H POC Glucose 118 H Lactic Acid Calcium 7.4 L Phosphorus Total Bilirubin AST ALT C-Reactive Protein Total Protein Albumin Triglycerides Amylase Lipase Urine WBC (Auto) Vancomycin Trough Crossmatch 12/30/17 12/30/17 12/30/17 05:04 13:53 17:33 WBC RBC Hgb Hct MCV MCH MCHC RDW Plt Count Lymph % (Auto) Eos % (Auto) [place] # Eos # Baso # Seg Neutrophils % Seg Neuts % (Manual) Lymphocytes % (Manual) Monocytes % (Manual) Eosinophils % (Manual) Nucleated RBC % Seg Neutrophils # Seg Neutrophils # Man Lymphocytes # (Manual) Monocytes # (Manual) Eosinophils # (Manual) APTT POC ABG pH ABG pH POC ABG pCO2 POC ABG pO2 ABG pO2 ABG HCO3 ABG O2 Saturation ABG Base Excess ABG Hemoglobin VBG pH Oxyhemoglobin Sodium Potassium Chloride Carbon Dioxide BUN Creatinine Glucose POC Glucose 150 H 113 H 145 H Lactic Acid Calcium Phosphorus Total Bilirubin AST ALT C-Reactive Protein Total Protein Albumin Triglycerides Amylase Lipase Urine WBC (Auto) Vancomycin Trough Crossmatch 12/31/17 12/31/17 12/31/17 01:54 03:15 03:15 WBC 17.1 H RBC 2.08 L Hgb 6.9 L Hct 20.6 L MCV 99 H MCH 33 H MCHC RDW 13.1 L Plt Count Lymph % (Auto) 10.5 L Eos % (Auto) [place] # Eos # 0.6 H Baso # Seg Neutrophils % 82.3 H Seg Neuts % (Manual) Lymphocytes % (Manual) Monocytes % (Manual) Eosinophils % (Manual) Nucleated RBC % Seg Neutrophils # 14.0 H Seg Neutrophils # Man Lymphocytes # (Manual) Monocytes # (Manual) Eosinophils # (Manual) APTT POC ABG pH ABG pH POC ABG pCO2 POC ABG pO2 ABG pO2 ABG HCO3 ABG O2 Saturation ABG Base Excess ABG Hemoglobin VBG pH Oxyhemoglobin Sodium Potassium 3.5 L Chloride Carbon Dioxide BUN Creatinine 0.6 L Glucose POC Glucose 69 L Lactic Acid Calcium 7.8 L Phosphorus Total Bilirubin AST ALT C-Reactive Protein Total Protein Albumin Triglycerides Amylase Lipase Urine WBC (Auto) Vancomycin Trough Crossmatch 12/31/17 12/31/17 12/31/17 05:15 09:25 10:17 WBC RBC Hgb Hct MCV MCH MCHC RDW Plt Count Lymph % (Auto) Eos % (Auto) [place] # Eos # Baso # Seg Neutrophils % Seg Neuts % (Manual) Lymphocytes % (Manual) Monocytes % (Manual) Eosinophils % (Manual) Nucleated RBC % Seg Neutrophils # Seg Neutrophils # Man Lymphocytes # (Manual) Monocytes # (Manual) Eosinophils # (Manual) APTT POC ABG pH ABG pH 7.516 H POC ABG pCO2 POC ABG pO2 ABG pO2 69.2 L ABG HCO3 28.7 H ABG O2 Saturation ABG Base Excess 5.3 H ABG Hemoglobin 6.6 L VBG pH Oxyhemoglobin 93.8 L Sodium Potassium Chloride Carbon Dioxide BUN Creatinine Glucose POC Glucose 143 H Lactic Acid Calcium Phosphorus Total Bilirubin AST ALT C-Reactive Protein Total Protein Albumin Triglycerides Amylase Lipase Urine WBC (Auto) Vancomycin Trough Crossmatch See Detail 12/31/17 12/31/17 12/31/17 14:20 18:30 21:40 WBC RBC Hgb Hct MCV MCH MCHC RDW Plt Count Lymph % (Auto) Eos % (Auto) [place] # Eos # Baso # Seg Neutrophils % Seg Neuts % (Manual) Lymphocytes % (Manual) Monocytes % (Manual) Eosinophils % (Manual) Nucleated RBC % Seg Neutrophils # Seg Neutrophils # Man Lymphocytes # (Manual) Monocytes # (Manual) Eosinophils # (Manual) APTT POC ABG pH ABG pH POC ABG pCO2 POC ABG pO2 ABG pO2 ABG HCO3 ABG O2 Saturation ABG Base Excess ABG Hemoglobin VBG pH Oxyhemoglobin Sodium Potassium Chloride Carbon Dioxide BUN Creatinine Glucose POC Glucose 175 H 137 H 182 H Lactic Acid Calcium Phosphorus Total Bilirubin AST ALT C-Reactive Protein Total Protein Albumin Triglycerides Amylase Lipase Urine WBC (Auto) Vancomycin Trough Crossmatch 12/31/17 01/01/18 01/01/18 23:34 02:09 04:00 WBC 16.4 H RBC 2.41 L Hgb 7.8 L Hct 23.6 L MCV 98 H MCH 33 H MCHC RDW Plt Count Lymph % (Auto) 10.7 L Eos % (Auto) [place] # Eos # 0.7 H Baso # 0.2 H Seg Neutrophils % 79.0 H Seg Neuts % (Manual) Lymphocytes % (Manual) Monocytes % (Manual) Eosinophils % (Manual) Nucleated RBC % Seg Neutrophils # 12.9 H Seg Neutrophils # Man Lymphocytes # (Manual) Monocytes # (Manual) Eosinophils # (Manual) APTT POC ABG pH ABG pH POC ABG pCO2 POC ABG pO2 ABG pO2 ABG HCO3 ABG O2 Saturation ABG Base Excess ABG Hemoglobin VBG pH Oxyhemoglobin Sodium Potassium Chloride Carbon Dioxide BUN Creatinine Glucose POC Glucose 132 H 117 H Lactic Acid Calcium Phosphorus Total Bilirubin AST ALT C-Reactive Protein Total Protein Albumin Triglycerides Amylase Lipase Urine WBC (Auto) Vancomycin Trough Crossmatch 01/01/18 01/01/18 01/01/18 04:00 04:04 05:32 WBC RBC Hgb Hct MCV MCH MCHC RDW Plt Count Lymph % (Auto) Eos % (Auto) [place] # Eos # Baso # Seg Neutrophils % Seg Neuts % (Manual) Lymphocytes % (Manual) Monocytes % (Manual) Eosinophils % (Manual) Nucleated RBC % Seg Neutrophils # Seg Neutrophils # Man Lymphocytes # (Manual) Monocytes # (Manual) Eosinophils # (Manual) APTT POC ABG pH ABG pH 7.458 H POC ABG pCO2 POC ABG pO2 ABG pO2 67.5 L ABG HCO3 27.5 H ABG O2 Saturation 94.4 L ABG Base Excess 3.4 H ABG Hemoglobin 7.8 L VBG pH Oxyhemoglobin 92.1 L Sodium Potassium Chloride Carbon Dioxide BUN Creatinine 0.4 L Glucose 129 H POC Glucose 129 H Lactic Acid Calcium 7.9 L Phosphorus Total Bilirubin AST ALT C-Reactive Protein Total Protein Albumin Triglycerides Amylase Lipase Urine WBC (Auto) Vancomycin Trough Crossmatch 01/01/18 01/01/18 01/01/18 10:10 12:38 17:27 WBC RBC Hgb Hct MCV MCH MCHC RDW Plt Count Lymph % (Auto) Eos % (Auto) [place] # Eos # Baso # Seg Neutrophils % Seg Neuts % (Manual) Lymphocytes % (Manual) Monocytes % (Manual) Eosinophils % (Manual) Nucleated RBC % Seg Neutrophils # Seg Neutrophils # Man Lymphocytes # (Manual) Monocytes # (Manual) Eosinophils # (Manual) APTT POC ABG pH ABG pH POC ABG pCO2 POC ABG pO2 ABG pO2 ABG HCO3 ABG O2 Saturation ABG Base Excess ABG Hemoglobin VBG pH Oxyhemoglobin Sodium Potassium Chloride Carbon Dioxide BUN Creatinine Glucose POC Glucose 155 H 179 H 152 H Lactic Acid Calcium Phosphorus Total Bilirubin AST ALT C-Reactive Protein Total Protein Albumin Triglycerides Amylase Lipase Urine WBC (Auto) Vancomycin Trough Crossmatch 01/01/18 01/02/18 01/02/18 21:36 01:42 04:10 WBC 12.1 H RBC 2.29 L Hgb 7.5 L Hct 22.7 L MCV 99 H MCH 33 H MCHC RDW Plt Count Lymph % (Auto) Eos % (Auto) 5.5 H [place] # 0.9 H Eos # 0.7 H Baso # Seg Neutrophils % Seg Neuts % (Manual) Lymphocytes % (Manual) Monocytes % (Manual) Eosinophils % (Manual) Nucleated RBC % Seg Neutrophils # 8.3 H Seg Neutrophils # Man Lymphocytes # (Manual) Monocytes # (Manual) Eosinophils # (Manual) APTT POC ABG pH ABG pH POC ABG pCO2 POC ABG pO2 ABG pO2 ABG HCO3 ABG O2 Saturation ABG Base Excess ABG Hemoglobin VBG pH Oxyhemoglobin Sodium Potassium Chloride Carbon Dioxide BUN Creatinine Glucose POC Glucose 118 H 117 H Lactic Acid Calcium Phosphorus Total Bilirubin AST ALT C-Reactive Protein Total Protein Albumin Triglycerides Amylase Lipase Urine WBC (Auto) Vancomycin Trough Crossmatch 01/02/18 01/02/18 01/02/18 04:10 04:57 13:42 WBC RBC Hgb Hct MCV MCH MCHC RDW Plt Count Lymph % (Auto) Eos % (Auto) [place] # Eos # Baso # Seg Neutrophils % Seg Neuts % (Manual) Lymphocytes % (Manual) Monocytes % (Manual) Eosinophils % (Manual) Nucleated RBC % Seg Neutrophils # Seg Neutrophils # Man Lymphocytes # (Manual) Monocytes # (Manual) Eosinophils # (Manual) APTT POC ABG pH ABG pH POC ABG pCO2 POC ABG pO2 ABG pO2 ABG HCO3 ABG O2 Saturation ABG Base Excess ABG Hemoglobin VBG pH Oxyhemoglobin Sodium Potassium Chloride 97.0 L Carbon Dioxide BUN Creatinine 0.4 L Glucose POC Glucose 107 H 133 H Lactic Acid Calcium 8.1 L Phosphorus Total Bilirubin AST ALT C-Reactive Protein Total Protein 6.0 L Albumin 2.5 L Triglycerides Amylase Lipase Urine WBC (Auto) Vancomycin Trough Crossmatch 01/02/18 01/02/18 01/03/18 17:33 22:11 02:18 WBC RBC Hgb Hct MCV MCH MCHC RDW Plt Count Lymph % (Auto) Eos % (Auto) [place] # Eos # Baso # Seg Neutrophils % Seg Neuts % (Manual) Lymphocytes % (Manual) Monocytes % (Manual) Eosinophils % (Manual) Nucleated RBC % Seg Neutrophils # Seg Neutrophils # Man Lymphocytes # (Manual) Monocytes # (Manual) Eosinophils # (Manual) APTT POC ABG pH ABG pH POC ABG pCO2 POC ABG pO2 ABG pO2 ABG HCO3 ABG O2 Saturation ABG Base Excess ABG Hemoglobin VBG pH Oxyhemoglobin Sodium Potassium Chloride Carbon Dioxide BUN Creatinine Glucose POC Glucose 146 H 171 H 162 H Lactic Acid Calcium Phosphorus Total Bilirubin AST ALT C-Reactive Protein Total Protein Albumin Triglycerides Amylase Lipase Urine WBC (Auto) Vancomycin Trough Crossmatch 01/03/18 01/03/18 01/03/18 04:56 05:21 17:20 WBC RBC Hgb Hct MCV MCH MCHC RDW Plt Count Lymph % (Auto) Eos % (Auto) [place] # Eos # Baso # Seg Neutrophils % Seg Neuts % (Manual) Lymphocytes % (Manual) Monocytes % (Manual) Eosinophils % (Manual) Nucleated RBC % Seg Neutrophils # Seg Neutrophils # Man Lymphocytes # (Manual) Monocytes # (Manual) Eosinophils # (Manual) APTT POC ABG pH ABG pH POC ABG pCO2 POC ABG pO2 ABG pO2 79.5 L ABG HCO3 31.4 H ABG O2 Saturation ABG Base Excess 6.3 H ABG Hemoglobin 10.4 L VBG pH Oxyhemoglobin 94.2 L Sodium Potassium Chloride Carbon Dioxide BUN Creatinine Glucose POC Glucose 163 H 153 H Lactic Acid Calcium Phosphorus Total Bilirubin AST ALT C-Reactive Protein Total Protein Albumin Triglycerides Amylase Lipase Urine WBC (Auto) Vancomycin Trough Crossmatch 01/03/18 01/03/18 01/04/18 17:50 19:52 00:40 WBC RBC Hgb Hct MCV MCH MCHC RDW Plt Count Lymph % (Auto) Eos % (Auto) [place] # Eos # Baso # Seg Neutrophils % Seg Neuts % (Manual) Lymphocytes % (Manual) Monocytes % (Manual) Eosinophils % (Manual) Nucleated RBC % Seg Neutrophils # Seg Neutrophils # Man Lymphocytes # (Manual) Monocytes # (Manual) Eosinophils # (Manual) APTT POC ABG pH ABG pH POC ABG pCO2 POC ABG pO2 ABG pO2 ABG HCO3 ABG O2 Saturation ABG Base Excess ABG Hemoglobin VBG pH Oxyhemoglobin Sodium Potassium Chloride Carbon Dioxide BUN Creatinine Glucose POC Glucose 157 H 147 H 158 H Lactic Acid Calcium Phosphorus Total Bilirubin AST ALT C-Reactive Protein Total Protein Albumin Triglycerides Amylase Lipase Urine WBC (Auto) Vancomycin Trough Crossmatch 01/04/18 01/04/18 01/04/18 04:01 05:13 06:12 WBC 11.5 H RBC 2.95 L Hgb 9.8 L Hct 29.5 L D MCV 100 H MCH 33 H MCHC RDW Plt Count Lymph % (Auto) Eos % (Auto) [place] # Eos # Baso # Seg Neutrophils % Seg Neuts % (Manual) Lymphocytes % (Manual) Monocytes % (Manual) Eosinophils % (Manual) 6.0 H Nucleated RBC % Seg Neutrophils # Seg Neutrophils # Man Lymphocytes # (Manual) Monocytes # (Manual) Eosinophils # (Manual) 0.7 H APTT POC ABG pH ABG pH 7.498 H POC ABG pCO2 POC ABG pO2 ABG pO2 129.5 H ABG HCO3 30.1 H ABG O2 Saturation ABG Base Excess 6.4 H ABG Hemoglobin 9.3 L VBG pH Oxyhemoglobin Sodium Potassium Chloride Carbon Dioxide BUN Creatinine Glucose POC Glucose 163 H Lactic Acid Calcium Phosphorus Total Bilirubin AST ALT C-Reactive Protein Total Protein Albumin Triglycerides Amylase Lipase Urine WBC (Auto) Vancomycin Trough Crossmatch 01/04/18 01/04/18 01/04/18 06:12 10:55 14:29 WBC RBC Hgb Hct MCV MCH MCHC RDW Plt Count Lymph % (Auto) Eos % (Auto) [place] # Eos # Baso # Seg Neutrophils % Seg Neuts % (Manual) Lymphocytes % (Manual) Monocytes % (Manual) Eosinophils % (Manual) Nucleated RBC % Seg Neutrophils # Seg Neutrophils # Man Lymphocytes # (Manual) Monocytes # (Manual) Eosinophils # (Manual) APTT POC ABG pH ABG pH POC ABG pCO2 POC ABG pO2 ABG pO2 ABG HCO3 ABG O2 Saturation ABG Base Excess ABG Hemoglobin VBG pH Oxyhemoglobin Sodium Potassium Chloride Carbon Dioxide BUN Creatinine 0.5 L Glucose 174 H POC Glucose 187 H 144 H Lactic Acid Calcium Phosphorus Total Bilirubin AST 41 H ALT C-Reactive Protein Total Protein Albumin 2.9 L Triglycerides Amylase Lipase Urine WBC (Auto) Vancomycin Trough Crossmatch 01/04/18 01/04/18 01/05/18 17:25 21:56 01:59 WBC RBC Hgb Hct MCV MCH MCHC RDW Plt Count Lymph % (Auto) Eos % (Auto) [place] # Eos # Baso # Seg Neutrophils % Seg Neuts % (Manual) Lymphocytes % (Manual) Monocytes % (Manual) Eosinophils % (Manual) Nucleated RBC % Seg Neutrophils # Seg Neutrophils # Man Lymphocytes # (Manual) Monocytes # (Manual) Eosinophils # (Manual) APTT POC ABG pH ABG pH POC ABG pCO2 POC ABG pO2 ABG pO2 ABG HCO3 ABG O2 Saturation ABG Base Excess ABG Hemoglobin VBG pH Oxyhemoglobin Sodium Potassium Chloride Carbon Dioxide BUN Creatinine Glucose POC Glucose 156 H 171 H 162 H Lactic Acid Calcium Phosphorus Total Bilirubin AST ALT C-Reactive Protein Total Protein Albumin Triglycerides Amylase Lipase Urine WBC (Auto) Vancomycin Trough Crossmatch 01/05/18 01/05/18 01/05/18 03:50 06:00 06:07 WBC RBC Hgb Hct MCV MCH MCHC RDW Plt Count Lymph % (Auto) Eos % (Auto) [place] # Eos # Baso # Seg Neutrophils % Seg Neuts % (Manual) Lymphocytes % (Manual) Monocytes % (Manual) Eosinophils % (Manual) Nucleated RBC % Seg Neutrophils # Seg Neutrophils # Man Lymphocytes # (Manual) Monocytes # (Manual) Eosinophils # (Manual) APTT POC ABG pH ABG pH POC ABG pCO2 POC ABG pO2 ABG pO2 64.6 L ABG HCO3 30.2 H ABG O2 Saturation 91.3 L ABG Base Excess 5.5 H ABG Hemoglobin 10.1 L VBG pH Oxyhemoglobin 89.0 L Sodium Potassium Chloride Carbon Dioxide BUN Creatinine 0.4 L Glucose 144 H POC Glucose 136 H Lactic Acid Calcium Phosphorus Total Bilirubin AST ALT C-Reactive Protein Total Protein Albumin Triglycerides Amylase Lipase Urine WBC (Auto) Vancomycin Trough Crossmatch 01/05/18 Unknown WBC RBC Hgb Hct MCV MCH MCHC RDW Plt Count Lymph % (Auto) Eos % (Auto) [place] # Eos # Baso # Seg Neutrophils % Seg Neuts % (Manual) Lymphocytes % (Manual) Monocytes % (Manual) Eosinophils % (Manual) Nucleated RBC % Seg Neutrophils # Seg Neutrophils # Man Lymphocytes # (Manual) Monocytes # (Manual) Eosinophils # (Manual) APTT POC ABG pH ABG pH 7.463 H POC ABG pCO2 POC ABG pO2 ABG pO2 74.0 L ABG HCO3 29.4 H ABG O2 Saturation ABG Base Excess 5.2 H ABG Hemoglobin 10.0 L VBG pH Oxyhemoglobin 93.4 L Sodium Potassium Chloride Carbon Dioxide BUN Creatinine Glucose POC Glucose Lactic Acid Calcium Phosphorus Total Bilirubin AST ALT C-Reactive Protein Total Protein Albumin Triglycerides Amylase Lipase Urine WBC (Auto) Vancomycin Trough Crossmatch
[2018-01-05] MEDS: LOVENOX SUB-Q SCH (22:01)
[2018-01-06] MEDS: LOPRESSOR IV SCH ×2 (00:19→06:31)
[2018-01-06] MEDS: LIBRIUM PO SCH ×4 (00:19→18:01)
[2018-01-06] MEDS: SUBLIMAZE IV PRN ×4 (00:19→15:44)
[2018-01-06] MEDS: HumaLOG SUB-Q SCH ×6 (01:55→22:06)
[2018-01-06 04:15] LABS: ABG Base Excess 4.2 mmol/L (-2.0-3.0); ABG HCO3 28.8 mmol/L (20.0-26.0); ABG Methemoglobin 0.4 % (0.0-1.5); ABG PCO2 43.2 mm Hg; ABG PH 7.441 pH Units (7.350-7.450); ABG PO2 84.9 mm Hg (80.0-90.0)
[2018-01-06 06:57] LABS: Hematocrit 31.7 % (35.5-45.6); Hemoglobin 10.4 gm/dl (11.8-15.2); Mean Corpuscular HGB Conc 33 % (32-34); Mean Corpuscular Hemoglobin 33 pg (28-32); Mean Corpuscular Volume 100 fl (84-94); Platelet Count 266 K/mm3 (140-440); Red Blood Count 3.16 M/mm3 (3.65-5.03); Red Cell Distribution Width 15.5 % (13.2-15.2)
[2018-01-06 07:27] LABS: Alanine Aminotransferase 42 units/L (7-56); Albumin 3.1 g/dL (3.9-5); BUN/Creatinine Ratio 30; Blood Urea Nitrogen 12 mg/dL (9-20); Calcium 9.5 mg/dL (8.4-10.2); Hemolysis Index 11
[2018-01-06 07:44] LABS: Basophils % (Manual) 0 % (0.0-1.8); Total Cells Counted 100
[2018-01-06 07:45] LABS: Anisocytosis 1+; Macrocytosis Few; Stomatocytes 1+
--- NOTE | 2018-01-06 08:05 | Progress Note ---
Assessment and Plan Assessment: 1) Severe Sepsis: fever, resolved and leukocytosis overall better. Etiology most likely complicated H influenza bacteremia +/- pneumonia +/- ? intraabdominal source. -blood cx negative -US legs No DVT -Abd US negative 2) H influenza bacteremia: likely from pneumonia. TTE neg 3) Complicated Bilateral pneumonia: etiology H influenza - should r/o empyema or abscess -CXR showed kimberlee pneumonia -Sputum 12/20 showed usual resp angelika -HIV neg -JERMAIN and ANCA negative -C3/C4 normal -CRP=7.1 -Strep pneumoniae not detected -Legionella not detected -tracheal aspirate - usual resp angelika -s/p 12 days cefepime and flagyl until 12/31 -s/p 7 days zyvox until 12/31 -CT chest 01/01 Extensive Bilateral mixed airspace and interstitial infiltrates c/w pneumonia or edema. 4) Acute respiratory failure: re-intubated 5) Thrombocytopenia : from sepsis, resolved 6) Elevated LFTs: resolved, etio. ?sepsis, ETOH. Viral hepatitis all negative. 7) DM type 2: uncontrolled 8) H/o etoh abuse Plan: -Monitor WBC. -Monitor off antibiotics at this time. -Will need trach -ID will follow peripherally. -d/w pt's bedside. -d/w [employer] REPRESENTATIVE. Carlene Mulligan MD Infectious Diseases Specialist [facility] C [phone] Subjective Date of service: 01/06/18 Principal diagnosis: ARDS,Respiratory failure,pneumonia Interval history: Afebrile. Has failed weaning trials. Off sedation, calm. Microbiology: Blood cultures: 12/12 H influenza 1 of 4 bottles 12/15 neg 12/17 neg 12/23 neg 12/26 neg 12/30 neg Respiratory cultures: 12/13 - usual resp angelika 12/20 tracheal asp - usual resp angelika Current Antimicrobials: None Previous Antimicrobials: Zosyn Levaquin 12/13 Clindamycin 12/17 vanco 12/17-12/25 zyvox 11/27-12/31 cefepime 12/20-12/31 flagyl 12/20-12/31 Objective - Exam Narrative Exam: Narrative Exam: General appearance: Pt in NAD, on the vent. Awake, following commands, calm. Eyes: anicteric sclerae, moist conjunctivae; PERRLA HENT: Atraumatic; oropharynx +ETT, NG tube. Neck: Trachea midline; supple, no thyromegaly or lymphadenopathy Lungs: Clear B CV: S1,S2. Abdomen: Soft, NT. Rectal tube with liquid stools. : awad catheter. Extremities: legs edema. Skin: no rash. Psych: alert. Neuro: alert, moving all extremities. Lines: right PICC 12/20. - Constitutional Vitals: Vital Signs Temp Pulse Resp BP Pulse Ox 98.6 F 96 H 17 115/79 95 01/06/18 04:00 01/06/18 07:00 01/06/18 07:00 01/06/18 07:00 01/06/18 07:00 Temperature -Last 24 Hours Temperature 98.6 F Temperature 98.7 F Temperature 98.8 F Temperature 98.9 F Temperature 98.2 F Temperature 97.9 F - Labs CBC & Chem 7: 01/06/18 05:30 01/06/18 05:30 Labs: Abnormal lab results 01/05/18 01/05/18 01/05/18 Range/Units 10:46 14:03 17:31 WBC (4.5-11.0) K/mm3 RBC (3.65-5.03) M/mm3 Hgb (11.8-15.2) gm/dl Hct (35.5-45.6) % MCV (84-94) fl MCH (28-32) pg RDW (13.2-15.2) % Seg Neuts % (Manual) (40.0-70.0) % Monocytes % (Manual) (0.0-7.3) % Nucleated RBC % (0.0-0.9) % Seg Neutrophils # Man (1.8-7.7) K/mm3 Monocytes # (Manual) (0.0-0.8) K/mm3 ABG HCO3 (20.0-26.0) mmol/L ABG Base Excess (-2.0-3.0) mmol/L ABG Hemoglobin (14.0-18.0) gm/dl Oxyhemoglobin (95.0-99.0) % Sodium (137-145) mmol/L Chloride (98-107) mmol/L Creatinine (0.8-1.5) mg/dL Glucose (75-100) mg/dL POC Glucose 147 H 141 H 192 H (70-105) Albumin (3.9-5) g/dL 01/05/18 01/06/18 01/06/18 Range/Units 22:12 01:58 03:14 WBC (4.5-11.0) K/mm3 RBC (3.65-5.03) M/mm3 Hgb (11.8-15.2) gm/dl Hct (35.5-45.6) % MCV (84-94) fl MCH (28-32) pg RDW (13.2-15.2) % Seg Neuts % (Manual) (40.0-70.0) % Monocytes % (Manual) (0.0-7.3) % Nucleated RBC % (0.0-0.9) % Seg Neutrophils # Man (1.8-7.7) K/mm3 Monocytes # (Manual) (0.0-0.8) K/mm3 ABG HCO3 28.8 H (20.0-26.0) mmol/L ABG Base Excess 4.2 H (-2.0-3.0) mmol/L ABG Hemoglobin 9.3 L (14.0-18.0) gm/dl Oxyhemoglobin 94.7 L (95.0-99.0) % Sodium (137-145) mmol/L Chloride (98-107) mmol/L Creatinine (0.8-1.5) mg/dL Glucose (75-100) mg/dL POC Glucose 209 H 138 H (70-105) Albumin (3.9-5) g/dL 01/06/18 01/06/18 01/06/18 Range/Units 05:30 05:30 05:42 WBC 12.6 H (4.5-11.0) K/mm3 RBC 3.16 L (3.65-5.03) M/mm3 Hgb 10.4 L (11.8-15.2) gm/dl Hct 31.7 L (35.5-45.6) % MCV 100 H (84-94) fl MCH 33 H (28-32) pg RDW 15.5 H (13.2-15.2) % Seg Neuts % (Manual) 72.0 H (40.0-70.0) % Monocytes % (Manual) 9.0 H (0.0-7.3) % Nucleated RBC % 1.0 H (0.0-0.9) % Seg Neutrophils # Man 9.1 H (1.8-7.7) K/mm3 Monocytes # (Manual) 1.1 H (0.0-0.8) K/mm3 ABG HCO3 (20.0-26.0) mmol/L ABG Base Excess (-2.0-3.0) mmol/L ABG Hemoglobin (14.0-18.0) gm/dl Oxyhemoglobin (95.0-99.0) % Sodium 136 L (137-145) mmol/L Chloride 94.2 L (98-107) mmol/L Creatinine 0.4 L (0.8-1.5) mg/dL Glucose 146 H (75-100) mg/dL POC Glucose 158 H (70-105) Albumin 3.1 L (3.9-5) g/dL
[2018-01-06] MEDS: DUONEB *Not for PRN Use IH SCH ×3 (08:59→19:37)
[2018-01-06] MEDS: LANTUS SUB-Q SCH (09:23)
[2018-01-06] MEDS: VITAMIN B-1 PO SCH (09:23)
[2018-01-06] MEDS: LOPRESSOR PO SCH ×2 (09:23→22:00)
[2018-01-06] MEDS: PEPCID PO SCH ×2 (09:23→22:08)
[2018-01-06] MEDS: POTASSIUM CHLORIDE PO SCH (09:23)
[2018-01-06] MEDS: SODIUM CHLORIDE FLUSH SYRINGE 10 ML IV SCH ×2 (09:24→22:08)
--- NOTE | 2018-01-06 11:40 | Progress Note ---
Assessment and Plan 47 y/o male with acute respiratory failure thought secondary to H. Flu now with H. Flu bacteremia, sepsis and persistent fevers. 1. Acute respiratory failure. Patient re-intubated 12/28. Started with higher peeps as I feel some of the haze on his CXR is volume. Wean FiO2 first and then start weaning PEEP. Discussed the possibility of trach with . Given the patient's obesity, anxiety and possible underlying psych issues, may need a trach for safety. Continue to wean and attempt PSV trials when ready. Unfortunately, patient continues to fail PSV trials. Will need trach. Will discuss with at bedside today. If ok, will consult surgery. 2. Follow up any new ID recs 3. Monitor I/O. Patient is producing large amounts of urine. Could represent SIADH. BP stable but may need to replace 1:1 if this continues. Subjective Date of service: 01/06/18 Principal diagnosis: ARDS,Respiratory failure,pneumonia Interval history: No acute events. Failed PSV this am. Off precedex. at bedside. Objective Vital Signs - 12hr 01/06/18 01/06/18 01/06/18 00:00 00:19 00:31 Temperature 98.7 F Pulse Rate 109 H 108 H 95 H Pulse Rate [ Anterior Bilateral Throughout] Pulse Rate [ From Monitor] Respiratory 29 H 30 H 17 Rate Respiratory Rate [Anterior Bilateral Throughout] Blood Pressure 134/90 134/90 129/89 O2 Sat by Pulse 94 94 Oximetry 01/06/18 01/06/18 01/06/18 01:00 01:31 02:00 Temperature Pulse Rate 97 H 99 H 99 H Pulse Rate [ Anterior Bilateral Throughout] Pulse Rate [ From Monitor] Respiratory 15 27 H 22 Rate Respiratory Rate [Anterior Bilateral Throughout] Blood Pressure 130/92 130/92 130/92 O2 Sat by Pulse 91 94 92 Oximetry 01/06/18 01/06/18 01/06/18 02:31 03:00 03:11 Temperature Pulse Rate 97 H 99 H 99 H Pulse Rate [ Anterior Bilateral Throughout] Pulse Rate [ From Monitor] Respiratory 18 22 Rate Respiratory Rate [Anterior Bilateral Throughout] Blood Pressure 127/78 137/91 137/91 O2 Sat by Pulse 94 95 96 Oximetry 01/06/18 01/06/18 01/06/18 03:31 04:00 04:31 Temperature 98.6 F Pulse Rate 98 H 114 H 111 H Pulse Rate [ Anterior Bilateral Throughout] Pulse Rate [ From Monitor] Respiratory 19 17 29 H Rate Respiratory Rate [Anterior Bilateral Throughout] Blood Pressure 137/91 137/91 140/95 O2 Sat by Pulse 96 93 95 Oximetry 01/06/18 01/06/18 01/06/18 05:00 05:31 06:00 Temperature Pulse Rate 110 H 113 H 114 H Pulse Rate [ Anterior Bilateral Throughout] Pulse Rate [ From Monitor] Respiratory 29 H 21 20 Rate Respiratory Rate [Anterior Bilateral Throughout] Blood Pressure 138/94 138/94 119/83 O2 Sat by Pulse 94 92 95 Oximetry 01/06/18 01/06/18 01/06/18 06:31 07:00 07:31 Temperature Pulse Rate 111 H 96 H 99 H Pulse Rate [ Anterior Bilateral Throughout] Pulse Rate [ From Monitor] Respiratory 23 17 18 Rate Respiratory Rate [Anterior Bilateral Throughout] Blood Pressure 119/83 115/79 115/79 O2 Sat by Pulse 96 95 96 Oximetry 01/06/18 01/06/18 01/06/18 08:00 08:31 08:47 Temperature 98.7 F Pulse Rate 101 H 105 H 112 H Pulse Rate [ Anterior Bilateral Throughout] Pulse Rate [ 95 H From Monitor] Respiratory 18 20 Rate Respiratory Rate [Anterior Bilateral Throughout] Blood Pressure 124/82 124/82 124/82 O2 Sat by Pulse 97 95 94 Oximetry 01/06/18 01/06/18 01/06/18 08:57 09:00 09:01 Temperature Pulse Rate 114 H 112 H Pulse Rate [ 112 H Anterior Bilateral Throughout] Pulse Rate [ From Monitor] Respiratory 23 Rate Respiratory 27 H Rate [Anterior Bilateral Throughout] Blood Pressure 134/87 O2 Sat by Pulse 112 H 95 Oximetry 01/06/18 01/06/18 01/06/18 09:18 09:23 09:31 Temperature Pulse Rate 110 H 114 H Pulse Rate [ 115 H Anterior Bilateral Throughout] Pulse Rate [ From Monitor] Respiratory 20 Rate Respiratory 20 Rate [Anterior Bilateral Throughout] Blood Pressure 134/87 134/87 O2 Sat by Pulse 92 Oximetry 01/06/18 01/06/18 01/06/18 10:00 10:31 11:00 Temperature Pulse Rate 96 H 90 91 H Pulse Rate [ Anterior Bilateral Throughout] Pulse Rate [ From Monitor] Respiratory 30 H 25 H 26 H Rate Respiratory Rate [Anterior Bilateral Throughout] Blood Pressure 127/81 134/87 117/81 O2 Sat by Pulse 85 91 91 Oximetry Constitutional: no acute distress, alert, asleep Eyes: non-icteric ENT: oropharynx moist, other (ETT at 24. ) Neck: no JVD Effort: normal Ascultation: Right: rales, Bilateral: diminished breath sounds, wheezes (mild), rhonchi (sporadic), other (coarse BS bilaterally) Percussion: Bilateral: not dull Tactile fremitus: Bilateral: normal Cardiovascular: regular rate and rhythm Gastrointestinal: hypoactive bowel sounds, non-tender, other (abdominal obesity) Integumentary: normal Extremities: no cyanosis, no ischemia or petechiae Neurologic: non-focal exam, pupils equal and round, CN II-XII normal Psychiatric: mood appropriate CBC and BMP: 01/06/18 05:30 01/06/18 05:30 ABG, PT/INR, D-dimer: ABG POC ABG pH 7.503 (7.35-7.45) H 12/25/17 03:38 ABG pH 7.441 pH Units (7.350-7.450) 01/06/18 03:14 POC ABG pCO2 35.8 (35-45) 12/25/17 03:38 ABG pCO2 43.2 mm Hg 01/06/18 03:14 POC ABG pO2 66 (80-105) L 12/25/17 03:38 ABG pO2 84.9 mm Hg (80.0-90.0) 01/06/18 03:14 POC ABG HCO3 28.1 12/25/17 03:38 POC ABG Total CO2 29 12/25/17 03:38 POC ABG O2 Sat 95 12/25/17 03:38 ABG O2 Saturation 97.0 % (95.0-99.0) 01/06/18 03:14 PT/INR, D-dimer PT 14.9 Sec. (12.2-14.9) 12/15/17 04:05 INR 1.11 (0.87-1.13) 12/15/17 04:05 Abnormal lab findings: Abnormal Labs 12/12/17 12/12/17 12/12/17 18:57 19:02 19:02 WBC RBC Hgb Hct MCV 96 H MCH 34 H MCHC 35 H RDW Plt Count 46 L Lymph % (Auto) Eos % (Auto) [place] # Eos # Baso # Seg Neutrophils % Seg Neuts % (Manual) 77.0 H Lymphocytes % (Manual) 13.0 L Monocytes % (Manual) Eosinophils % (Manual) Nucleated RBC % Seg Neutrophils # Seg Neutrophils # Man Lymphocytes # (Manual) 0.9 L Monocytes # (Manual) Eosinophils # (Manual) APTT POC ABG pH ABG pH POC ABG pCO2 POC ABG pO2 ABG pO2 ABG HCO3 ABG O2 Saturation ABG Base Excess ABG Hemoglobin VBG pH Oxyhemoglobin Sodium Potassium Chloride Carbon Dioxide BUN Creatinine Glucose POC Glucose 321 H Lactic Acid 4.00 H* Calcium Phosphorus Total Bilirubin AST ALT C-Reactive Protein Total Protein Albumin Triglycerides Amylase Lipase Urine WBC (Auto) Vancomycin Trough Crossmatch 12/12/17 12/12/17 12/12/17 19:02 19:18 20:55 WBC RBC Hgb Hct MCV MCH MCHC RDW Plt Count Lymph % (Auto) Eos % (Auto) [place] # Eos # Baso # Seg Neutrophils % Seg Neuts % (Manual) Lymphocytes % (Manual) Monocytes % (Manual) Eosinophils % (Manual) Nucleated RBC % Seg Neutrophils # Seg Neutrophils # Man Lymphocytes # (Manual) Monocytes # (Manual) Eosinophils # (Manual) APTT POC ABG pH ABG pH POC ABG pCO2 POC ABG pO2 ABG pO2 ABG HCO3 ABG O2 Saturation ABG Base Excess ABG Hemoglobin VBG pH 7.472 H Oxyhemoglobin Sodium 124 L Potassium Chloride 80.0 L Carbon Dioxide 20 L BUN Creatinine Glucose 382 H POC Glucose 283 H Lactic Acid Calcium 8.1 L Phosphorus Total Bilirubin 4.60 H AST 93 H ALT 112 H C-Reactive Protein Total Protein Albumin 2.5 L Triglycerides Amylase Lipase Urine WBC (Auto) Vancomycin Trough Crossmatch 12/12/17 12/13/17 12/13/17 21:41 00:45 01:29 WBC RBC Hgb Hct MCV MCH MCHC RDW Plt Count Lymph % (Auto) Eos % (Auto) [place] # Eos # Baso # Seg Neutrophils % Seg Neuts % (Manual) Lymphocytes % (Manual) Monocytes % (Manual) Eosinophils % (Manual) Nucleated RBC % Seg Neutrophils # Seg Neutrophils # Man Lymphocytes # (Manual) Monocytes # (Manual) Eosinophils # (Manual) APTT POC ABG pH ABG pH POC ABG pCO2 POC ABG pO2 ABG pO2 ABG HCO3 ABG O2 Saturation ABG Base Excess ABG Hemoglobin VBG pH Oxyhemoglobin Sodium Potassium Chloride Carbon Dioxide BUN Creatinine Glucose POC Glucose Lactic Acid 4.20 H* 2.70 H* 3.30 H* Calcium Phosphorus Total Bilirubin AST ALT C-Reactive Protein Total Protein Albumin Triglycerides Amylase Lipase Urine WBC (Auto) Vancomycin Trough Crossmatch 12/13/17 12/13/17 12/13/17 02:19 03:44 05:58 WBC RBC Hgb Hct MCV 97 H MCH 34 H MCHC 35 H RDW Plt Count 41 L Lymph % (Auto) Eos % (Auto) [place] # Eos # Baso # Seg Neutrophils % Seg Neuts % (Manual) Lymphocytes % (Manual) 8.0 L Monocytes % (Manual) 8.0 H Eosinophils % (Manual) Nucleated RBC % Seg Neutrophils # Seg Neutrophils # Man Lymphocytes # (Manual) 0.6 L Monocytes # (Manual) Eosinophils # (Manual) APTT POC ABG pH 7.334 L ABG pH POC ABG pCO2 POC ABG pO2 43 L ABG pO2 ABG HCO3 ABG O2 Saturation ABG Base Excess ABG Hemoglobin VBG pH Oxyhemoglobin Sodium Potassium Chloride Carbon Dioxide BUN Creatinine Glucose POC Glucose Lactic Acid 2.60 H* Calcium Phosphorus Total Bilirubin AST ALT C-Reactive Protein Total Protein Albumin Triglycerides Amylase Lipase Urine WBC (Auto) Vancomycin Trough Crossmatch 12/13/17 12/13/17 12/13/17 05:58 05:58 05:58 WBC RBC Hgb Hct MCV MCH MCHC RDW Plt Count Lymph % (Auto) Eos % (Auto) [place] # Eos # Baso # Seg Neutrophils % Seg Neuts % (Manual) Lymphocytes % (Manual) Monocytes % (Manual) Eosinophils % (Manual) Nucleated RBC % Seg Neutrophils # Seg Neutrophils # Man Lymphocytes # (Manual) Monocytes # (Manual) Eosinophils # (Manual) APTT POC ABG pH ABG pH POC ABG pCO2 POC ABG pO2 ABG pO2 ABG HCO3 ABG O2 Saturation ABG Base Excess ABG Hemoglobin VBG pH Oxyhemoglobin Sodium 132 L D Potassium Chloride 90.0 L Carbon Dioxide 20 L BUN Creatinine Glucose 346 H POC Glucose 298 H Lactic Acid 4.50 H* Calcium 8.2 L Phosphorus Total Bilirubin AST ALT C-Reactive Protein Total Protein Albumin Triglycerides Amylase Lipase Urine WBC (Auto) Vancomycin Trough Crossmatch 0312/13/17 12/13/17 06:27 09:42 11:47 WBC RBC Hgb Hct MCV MCH MCHC RDW Plt Count Lymph % (Auto) Eos % (Auto) [place] # Eos # Baso # Seg Neutrophils % Seg Neuts % (Manual) Lymphocytes % (Manual) Monocytes % (Manual) Eosinophils % (Manual) Nucleated RBC % Seg Neutrophils # Seg Neutrophils # Man Lymphocytes # (Manual) Monocytes # (Manual) Eosinophils # (Manual) APTT POC ABG pH 7.267 L 7.298 L ABG pH POC ABG pCO2 50.4 H 51.3 H POC ABG pO2 47 L 43 L ABG pO2 ABG HCO3 ABG O2 Saturation ABG Base Excess ABG Hemoglobin VBG pH Oxyhemoglobin Sodium Potassium Chloride Carbon Dioxide BUN Creatinine Glucose POC Glucose 376 H Lactic Acid Calcium Phosphorus Total Bilirubin AST ALT C-Reactive Protein Total Protein Albumin Triglycerides Amylase Lipase Urine WBC (Auto) Vancomycin Trough Crossmatch 12/13/17 12/13/17 12/13/17 12:03 13:47 13:47 WBC RBC Hgb Hct MCV MCH MCHC RDW Plt Count Lymph % (Auto) Eos % (Auto) [place] # Eos # Baso # Seg Neutrophils % Seg Neuts % (Manual) Lymphocytes % (Manual) Monocytes % (Manual) Eosinophils % (Manual) Nucleated RBC % Seg Neutrophils # Seg Neutrophils # Man Lymphocytes # (Manual) Monocytes # (Manual) Eosinophils # (Manual) APTT POC ABG pH 7.264 L ABG pH POC ABG pCO2 54.9 H POC ABG pO2 55 L ABG pO2 ABG HCO3 ABG O2 Saturation ABG Base Excess ABG Hemoglobin VBG pH Oxyhemoglobin Sodium Potassium Chloride Carbon Dioxide BUN Creatinine Glucose POC Glucose Lactic Acid 2.80 H* Calcium Phosphorus Total Bilirubin AST ALT C-Reactive Protein Total Protein Albumin Triglycerides Amylase 20 L Lipase 9 L Urine WBC (Auto) Vancomycin Trough Crossmatch 12/13/17 12/13/17 12/13/17 15:36 17:39 21:47 WBC RBC Hgb Hct MCV MCH MCHC RDW Plt Count Lymph % (Auto) Eos % (Auto) [place] # Eos # Baso # Seg Neutrophils % Seg Neuts % (Manual) Lymphocytes % (Manual) Monocytes % (Manual) Eosinophils % (Manual) Nucleated RBC % Seg Neutrophils # Seg Neutrophils # Man Lymphocytes # (Manual) Monocytes # (Manual) Eosinophils # (Manual) APTT POC ABG pH 7.229 L 7.225 L ABG pH POC ABG pCO2 60.9 H 66.3 H POC ABG pO2 42 L 41 L ABG pO2 ABG HCO3 ABG O2 Saturation ABG Base Excess ABG Hemoglobin VBG pH Oxyhemoglobin Sodium Potassium Chloride Carbon Dioxide BUN Creatinine Glucose POC Glucose 289 H Lactic Acid Calcium Phosphorus Total Bilirubin AST ALT C-Reactive Protein Total Protein Albumin Triglycerides Amylase Lipase Urine WBC (Auto) Vancomycin Trough Crossmatch 12/13/17 12/14/17 12/14/17 22:19 02:03 05:16 WBC RBC Hgb Hct MCV MCH MCHC RDW Plt Count Lymph % (Auto) Eos % (Auto) [place] # Eos # Baso # Seg Neutrophils % Seg Neuts % (Manual) Lymphocytes % (Manual) Monocytes % (Manual) Eosinophils % (Manual) Nucleated RBC % Seg Neutrophils # Seg Neutrophils # Man Lymphocytes # (Manual) Monocytes # (Manual) Eosinophils # (Manual) APTT POC ABG pH 7.247 L ABG pH POC ABG pCO2 61.2 H POC ABG pO2 53 L ABG pO2 ABG HCO3 ABG O2 Saturation ABG Base Excess ABG Hemoglobin VBG pH Oxyhemoglobin Sodium Potassium Chloride Carbon Dioxide BUN Creatinine Glucose POC Glucose 274 H 295 H Lactic Acid Calcium Phosphorus Total Bilirubin AST ALT C-Reactive Protein Total Protein Albumin Triglycerides Amylase Lipase Urine WBC (Auto) Vancomycin Trough Crossmatch 12/14/17 12/14/17 12/14/17 05:32 12:04 16:22 WBC RBC Hgb Hct MCV MCH MCHC RDW Plt Count Lymph % (Auto) Eos % (Auto) [place] # Eos # Baso # Seg Neutrophils % Seg Neuts % (Manual) Lymphocytes % (Manual) Monocytes % (Manual) Eosinophils % (Manual) Nucleated RBC % Seg Neutrophils # Seg Neutrophils # Man Lymphocytes # (Manual) Monocytes # (Manual) Eosinophils # (Manual) APTT POC ABG pH ABG pH POC ABG pCO2 POC ABG pO2 ABG pO2 ABG HCO3 ABG O2 Saturation ABG Base Excess ABG Hemoglobin VBG pH Oxyhemoglobin Sodium Potassium Chloride Carbon Dioxide BUN Creatinine Glucose POC Glucose 230 H 241 H 231 H Lactic Acid Calcium Phosphorus Total Bilirubin AST ALT C-Reactive Protein Total Protein Albumin Triglycerides Amylase Lipase Urine WBC (Auto) Vancomycin Trough Crossmatch 12/14/17 12/15/17 12/15/17 21:29 02:29 03:25 WBC RBC Hgb Hct MCV MCH MCHC RDW Plt Count Lymph % (Auto) Eos % (Auto) [place] # Eos # Baso # Seg Neutrophils % Seg Neuts % (Manual) Lymphocytes % (Manual) Monocytes % (Manual) Eosinophils % (Manual) Nucleated RBC % Seg Neutrophils # Seg Neutrophils # Man Lymphocytes # (Manual) Monocytes # (Manual) Eosinophils # (Manual) APTT POC ABG pH 7.330 L ABG pH POC ABG pCO2 55.3 H POC ABG pO2 59 L ABG pO2 ABG HCO3 ABG O2 Saturation ABG Base Excess ABG Hemoglobin VBG pH Oxyhemoglobin Sodium Potassium Chloride Carbon Dioxide BUN Creatinine Glucose POC Glucose 258 H 246 H Lactic Acid Calcium Phosphorus Total Bilirubin AST ALT C-Reactive Protein Total Protein Albumin Triglycerides Amylase Lipase Urine WBC (Auto) Vancomycin Trough Crossmatch 12/15/17 12/15/17 12/15/17 04:05 04:05 04:05 WBC 15.0 H RBC 3.40 L Hgb 11.3 L D Hct 33.8 L D MCV 100 H MCH 33 H MCHC RDW Plt Count 48 L Lymph % (Auto) Eos % (Auto) [place] # Eos # Baso # Seg Neutrophils % Seg Neuts % (Manual) Lymphocytes % (Manual) 3.0 L Monocytes % (Manual) Eosinophils % (Manual) Nucleated RBC % 2.0 H Seg Neutrophils # Seg Neutrophils # Man Lymphocytes # (Manual) 0.5 L Monocytes # (Manual) 0.9 H Eosinophils # (Manual) APTT 20.9 L POC ABG pH ABG pH POC ABG pCO2 POC ABG pO2 ABG pO2 ABG HCO3 ABG O2 Saturation ABG Base Excess ABG Hemoglobin VBG pH Oxyhemoglobin Sodium Potassium Chloride Carbon Dioxide BUN 27 H Creatinine Glucose 258 H POC Glucose Lactic Acid Calcium 8.1 L Phosphorus Total Bilirubin AST ALT C-Reactive Protein Total Protein Albumin Triglycerides Amylase Lipase Urine WBC (Auto) Vancomycin Trough Crossmatch 12/15/17 12/15/17 12/15/17 05:32 11:17 14:59 WBC RBC Hgb Hct MCV MCH MCHC RDW Plt Count Lymph % (Auto) Eos % (Auto) [place] # Eos # Baso # Seg Neutrophils % Seg Neuts % (Manual) Lymphocytes % (Manual) Monocytes % (Manual) Eosinophils % (Manual) Nucleated RBC % Seg Neutrophils # Seg Neutrophils # Man Lymphocytes # (Manual) Monocytes # (Manual) Eosinophils # (Manual) APTT POC ABG pH ABG pH POC ABG pCO2 POC ABG pO2 ABG pO2 ABG HCO3 ABG O2 Saturation ABG Base Excess ABG Hemoglobin VBG pH Oxyhemoglobin Sodium Potassium Chloride Carbon Dioxide BUN Creatinine Glucose POC Glucose 247 H 268 H 233 H Lactic Acid Calcium Phosphorus Total Bilirubin AST ALT C-Reactive Protein Total Protein Albumin Triglycerides Amylase Lipase Urine WBC (Auto) Vancomycin Trough Crossmatch 12/15/17 12/15/17 12/15/17 17:00 18:59 21:37 WBC RBC Hgb Hct MCV MCH MCHC RDW Plt Count Lymph % (Auto) Eos % (Auto) [place] # Eos # Baso # Seg Neutrophils % Seg Neuts % (Manual) Lymphocytes % (Manual) Monocytes % (Manual) Eosinophils % (Manual) Nucleated RBC % Seg Neutrophils # Seg Neutrophils # Man Lymphocytes # (Manual) Monocytes # (Manual) Eosinophils # (Manual) APTT POC ABG pH ABG pH POC ABG pCO2 POC ABG pO2 ABG pO2 ABG HCO3 ABG O2 Saturation ABG Base Excess ABG Hemoglobin VBG pH Oxyhemoglobin Sodium Potassium Chloride Carbon Dioxide BUN Creatinine Glucose POC Glucose 195 H 208 H Lactic Acid Calcium Phosphorus Total Bilirubin AST ALT C-Reactive Protein Total Protein Albumin Triglycerides Amylase Lipase Urine WBC (Auto) 38.0 H Vancomycin Trough Crossmatch 12/16/17 12/16/17 12/16/17 03:17 03:33 04:18 WBC 16.4 H RBC 3.50 L Hgb 11.3 L Hct 35.4 L MCV 101 H MCH MCHC RDW Plt Count 54 L Lymph % (Auto) Eos % (Auto) [place] # Eos # Baso # Seg Neutrophils % Seg Neuts % (Manual) Lymphocytes % (Manual) Monocytes % (Manual) Eosinophils % (Manual) Nucleated RBC % Seg Neutrophils # Seg Neutrophils # Man Lymphocytes # (Manual) Monocytes # (Manual) Eosinophils # (Manual) APTT POC ABG pH ABG pH POC ABG pCO2 47.7 H POC ABG pO2 ABG pO2 ABG HCO3 ABG O2 Saturation ABG Base Excess ABG Hemoglobin VBG pH Oxyhemoglobin Sodium Potassium Chloride Carbon Dioxide BUN Creatinine Glucose POC Glucose 227 H Lactic Acid Calcium Phosphorus Total Bilirubin AST ALT C-Reactive Protein Total Protein Albumin Triglycerides Amylase Lipase Urine WBC (Auto) Vancomycin Trough Crossmatch 12/16/17 12/16/17 12/16/17 04:18 05:08 10:01 WBC RBC Hgb Hct MCV MCH MCHC RDW Plt Count Lymph % (Auto) Eos % (Auto) [place] # Eos # Baso # Seg Neutrophils % Seg Neuts % (Manual) Lymphocytes % (Manual) Monocytes % (Manual) Eosinophils % (Manual) Nucleated RBC % Seg Neutrophils # Seg Neutrophils # Man Lymphocytes # (Manual) Monocytes # (Manual) Eosinophils # (Manual) APTT POC ABG pH ABG pH POC ABG pCO2 POC ABG pO2 ABG pO2 ABG HCO3 ABG O2 Saturation ABG Base Excess ABG Hemoglobin VBG pH Oxyhemoglobin Sodium 147 H Potassium Chloride 107.4 H Carbon Dioxide BUN 28 H Creatinine Glucose 240 H POC Glucose 227 H 190 H Lactic Acid Calcium 8.3 L Phosphorus Total Bilirubin AST ALT C-Reactive Protein Total Protein Albumin Triglycerides Amylase Lipase Urine WBC (Auto) Vancomycin Trough Crossmatch 12/16/17 12/16/17 12/16/17 14:15 17:51 21:14 WBC RBC Hgb Hct MCV MCH MCHC RDW Plt Count Lymph % (Auto) Eos % (Auto) [place] # Eos # Baso # Seg Neutrophils % Seg Neuts % (Manual) Lymphocytes % (Manual) Monocytes % (Manual) Eosinophils % (Manual) Nucleated RBC % Seg Neutrophils # Seg Neutrophils # Man Lymphocytes # (Manual) Monocytes # (Manual) Eosinophils # (Manual) APTT POC ABG pH ABG pH POC ABG pCO2 POC ABG pO2 ABG pO2 ABG HCO3 ABG O2 Saturation ABG Base Excess ABG Hemoglobin VBG pH Oxyhemoglobin Sodium Potassium Chloride Carbon Dioxide BUN Creatinine Glucose POC Glucose 279 H 272 H 260 H Lactic Acid Calcium Phosphorus Total Bilirubin AST ALT C-Reactive Protein Total Protein Albumin Triglycerides Amylase Lipase Urine WBC (Auto) Vancomycin Trough Crossmatch 12/17/17 12/17/17 12/17/17 02:41 04:28 04:28 WBC 19.1 H RBC 3.50 L Hgb 11.4 L Hct 35.3 L MCV 101 H MCH 33 H MCHC RDW Plt Count 65 L Lymph % (Auto) Eos % (Auto) [place] # Eos # Baso # Seg Neutrophils % Seg Neuts % (Manual) Lymphocytes % (Manual) Monocytes % (Manual) Eosinophils % (Manual) Nucleated RBC % Seg Neutrophils # Seg Neutrophils # Man Lymphocytes # (Manual) Monocytes # (Manual) Eosinophils # (Manual) APTT POC ABG pH ABG pH POC ABG pCO2 POC ABG pO2 ABG pO2 ABG HCO3 ABG O2 Saturation ABG Base Excess ABG Hemoglobin VBG pH Oxyhemoglobin Sodium 153 H Potassium Chloride 111.2 H Carbon Dioxide 31 H BUN 28 H Creatinine Glucose 248 H POC Glucose 300 H Lactic Acid Calcium Phosphorus Total Bilirubin AST ALT C-Reactive Protein Total Protein Albumin Triglycerides Amylase Lipase Urine WBC (Auto) Vancomycin Trough Crossmatch 12/17/17 12/17/17 12/17/17 05:15 05:38 10:16 WBC RBC Hgb Hct MCV MCH MCHC RDW Plt Count Lymph % (Auto) Eos % (Auto) [place] # Eos # Baso # Seg Neutrophils % Seg Neuts % (Manual) Lymphocytes % (Manual) Monocytes % (Manual) Eosinophils % (Manual) Nucleated RBC % Seg Neutrophils # Seg Neutrophils # Man Lymphocytes # (Manual) Monocytes # (Manual) Eosinophils # (Manual) APTT POC ABG pH ABG pH POC ABG pCO2 50.3 H POC ABG pO2 120 H ABG pO2 ABG HCO3 ABG O2 Saturation ABG Base Excess ABG Hemoglobin VBG pH Oxyhemoglobin Sodium Potassium Chloride Carbon Dioxide BUN Creatinine Glucose POC Glucose 231 H 196 H Lactic Acid Calcium Phosphorus Total Bilirubin AST ALT C-Reactive Protein Total Protein Albumin Triglycerides Amylase Lipase Urine WBC (Auto) Vancomycin Trough Crossmatch 12/17/17 12/17/17 12/17/17 14:22 18:14 21:35 WBC RBC Hgb Hct MCV MCH MCHC RDW Plt Count Lymph % (Auto) Eos % (Auto) [place] # Eos # Baso # Seg Neutrophils % Seg Neuts % (Manual) Lymphocytes % (Manual) Monocytes % (Manual) Eosinophils % (Manual) Nucleated RBC % Seg Neutrophils # Seg Neutrophils # Man Lymphocytes # (Manual) Monocytes # (Manual) Eosinophils # (Manual) APTT POC ABG pH ABG pH POC ABG pCO2 POC ABG pO2 ABG pO2 ABG HCO3 ABG O2 Saturation ABG Base Excess ABG Hemoglobin VBG pH Oxyhemoglobin Sodium Potassium Chloride Carbon Dioxide BUN Creatinine Glucose POC Glucose 234 H 215 H 159 H Lactic Acid Calcium Phosphorus Total Bilirubin AST ALT C-Reactive Protein Total Protein Albumin Triglycerides Amylase Lipase Urine WBC (Auto) Vancomycin Trough Crossmatch 12/18/17 12/18/17 12/18/17 00:53 02:58 06:03 WBC RBC Hgb Hct MCV MCH MCHC RDW Plt Count Lymph % (Auto) Eos % (Auto) [place] # Eos # Baso # Seg Neutrophils % Seg Neuts % (Manual) Lymphocytes % (Manual) Monocytes % (Manual) Eosinophils % (Manual) Nucleated RBC % Seg Neutrophils # Seg Neutrophils # Man Lymphocytes # (Manual) Monocytes # (Manual) Eosinophils # (Manual) APTT POC ABG pH ABG pH POC ABG pCO2 56.4 H POC ABG pO2 46 L ABG pO2 ABG HCO3 ABG O2 Saturation ABG Base Excess ABG Hemoglobin VBG pH Oxyhemoglobin Sodium Potassium Chloride Carbon Dioxide BUN Creatinine Glucose POC Glucose 176 H 143 H Lactic Acid Calcium Phosphorus Total Bilirubin AST ALT C-Reactive Protein Total Protein Albumin Triglycerides Amylase Lipase Urine WBC (Auto) Vancomycin Trough Crossmatch 12/18/17 12/18/17 12/18/17 07:59 09:20 09:20 WBC 27.4 H RBC 3.57 L Hgb 11.4 L Hct MCV 101 H MCH MCHC RDW Plt Count 64 L Lymph % (Auto) Eos % (Auto) [place] # Eos # Baso # Seg Neutrophils % Seg Neuts % (Manual) Lymphocytes % (Manual) Monocytes % (Manual) Eosinophils % (Manual) Nucleated RBC % Seg Neutrophils # Seg Neutrophils # Man Lymphocytes # (Manual) Monocytes # (Manual) Eosinophils # (Manual) APTT POC ABG pH ABG pH POC ABG pCO2 POC ABG pO2 ABG pO2 ABG HCO3 ABG O2 Saturation ABG Base Excess ABG Hemoglobin VBG pH Oxyhemoglobin Sodium 152 H Potassium Chloride 107.9 H Carbon Dioxide 34 H BUN 23 H Creatinine 0.7 L Glucose 181 H POC Glucose 197 H Lactic Acid Calcium Phosphorus Total Bilirubin AST ALT C-Reactive Protein Total Protein Albumin Triglycerides Amylase Lipase Urine WBC (Auto) Vancomycin Trough Crossmatch 12/18/17 12/18/17 12/18/17 10:22 15:03 18:15 WBC RBC Hgb Hct MCV MCH MCHC RDW Plt Count Lymph % (Auto) Eos % (Auto) [place] # Eos # Baso # Seg Neutrophils % Seg Neuts % (Manual) Lymphocytes % (Manual) Monocytes % (Manual) Eosinophils % (Manual) Nucleated RBC % Seg Neutrophils # Seg Neutrophils # Man Lymphocytes # (Manual) Monocytes # (Manual) Eosinophils # (Manual) APTT POC ABG pH ABG pH POC ABG pCO2 POC ABG pO2 ABG pO2 ABG HCO3 ABG O2 Saturation ABG Base Excess ABG Hemoglobin VBG pH Oxyhemoglobin Sodium Potassium Chloride Carbon Dioxide BUN Creatinine Glucose POC Glucose 195 H 225 H 238 H Lactic Acid Calcium Phosphorus Total Bilirubin AST ALT C-Reactive Protein Total Protein Albumin Triglycerides Amylase Lipase Urine WBC (Auto) Vancomycin Trough Crossmatch 12/18/17 12/18/17 12/19/17 18:29 21:53 00:18 WBC RBC Hgb Hct MCV MCH MCHC RDW Plt Count Lymph % (Auto) Eos % (Auto) [place] # Eos # Baso # Seg Neutrophils % Seg Neuts % (Manual) Lymphocytes % (Manual) Monocytes % (Manual) Eosinophils % (Manual) Nucleated RBC % Seg Neutrophils # Seg Neutrophils # Man Lymphocytes # (Manual) Monocytes # (Manual) Eosinophils # (Manual) APTT POC ABG pH 7.476 H ABG pH POC ABG pCO2 50.4 H POC ABG pO2 158 H ABG pO2 ABG HCO3 ABG O2 Saturation ABG Base Excess ABG Hemoglobin VBG pH Oxyhemoglobin Sodium Potassium Chloride Carbon Dioxide BUN Creatinine Glucose POC Glucose 231 H 263 H Lactic Acid Calcium Phosphorus Total Bilirubin AST ALT C-Reactive Protein Total Protein Albumin Triglycerides Amylase Lipase Urine WBC (Auto) Vancomycin Trough Crossmatch 12/19/17 12/19/17 12/19/17 02:09 04:07 04:07 WBC 25.9 H RBC 3.25 L Hgb 10.6 L Hct 32.8 L MCV 101 H MCH 33 H MCHC RDW Plt Count 67 L Lymph % (Auto) Eos % (Auto) [place] # Eos # Baso # Seg Neutrophils % Seg Neuts % (Manual) Lymphocytes % (Manual) 4.0 L Monocytes % (Manual) Eosinophils % (Manual) Nucleated RBC % Seg Neutrophils # Seg Neutrophils # Man 14.8 H Lymphocytes # (Manual) 1.0 L Monocytes # (Manual) Eosinophils # (Manual) APTT POC ABG pH ABG pH POC ABG pCO2 POC ABG pO2 ABG pO2 ABG HCO3 ABG O2 Saturation ABG Base Excess ABG Hemoglobin VBG pH Oxyhemoglobin Sodium 148 H Potassium Chloride Carbon Dioxide BUN 31 H Creatinine Glucose 314 H POC Glucose 300 H Lactic Acid Calcium 8.1 L Phosphorus Total Bilirubin AST ALT C-Reactive Protein Total Protein Albumin Triglycerides Amylase Lipase Urine WBC (Auto) Vancomycin Trough Crossmatch 12/19/17 12/19/17 12/19/17 05:15 05:41 07:57 WBC RBC Hgb Hct MCV MCH MCHC RDW Plt Count Lymph % (Auto) Eos % (Auto) [place] # Eos # Baso # Seg Neutrophils % Seg Neuts % (Manual) Lymphocytes % (Manual) Monocytes % (Manual) Eosinophils % (Manual) Nucleated RBC % Seg Neutrophils # Seg Neutrophils # Man Lymphocytes # (Manual) Monocytes # (Manual) Eosinophils # (Manual) APTT POC ABG pH 7.507 H ABG pH POC ABG pCO2 POC ABG pO2 ABG pO2 ABG HCO3 ABG O2 Saturation ABG Base Excess ABG Hemoglobin VBG pH Oxyhemoglobin Sodium Potassium Chloride Carbon Dioxide BUN Creatinine Glucose POC Glucose 331 H 307 H Lactic Acid Calcium Phosphorus Total Bilirubin AST ALT C-Reactive Protein Total Protein Albumin Triglycerides Amylase Lipase Urine WBC (Auto) Vancomycin Trough Crossmatch 12/19/17 12/19/17 12/19/17 10:21 14:48 17:59 WBC RBC Hgb Hct MCV MCH MCHC RDW Plt Count Lymph % (Auto) Eos % (Auto) [place] # Eos # Baso # Seg Neutrophils % Seg Neuts % (Manual) Lymphocytes % (Manual) Monocytes % (Manual) Eosinophils % (Manual) Nucleated RBC % Seg Neutrophils # Seg Neutrophils # Man Lymphocytes # (Manual) Monocytes # (Manual) Eosinophils # (Manual) APTT POC ABG pH ABG pH POC ABG pCO2 POC ABG pO2 ABG pO2 ABG HCO3 ABG O2 Saturation ABG Base Excess ABG Hemoglobin VBG pH Oxyhemoglobin Sodium Potassium Chloride Carbon Dioxide BUN Creatinine Glucose POC Glucose 358 H 327 H 355 H Lactic Acid Calcium Phosphorus Total Bilirubin AST ALT C-Reactive Protein Total Protein Albumin Triglycerides Amylase Lipase Urine WBC (Auto) Vancomycin Trough Crossmatch 12/19/17 12/20/17 12/20/17 21:38 02:21 03:42 WBC RBC Hgb Hct MCV MCH MCHC RDW Plt Count Lymph % (Auto) Eos % (Auto) [place] # Eos # Baso # Seg Neutrophils % Seg Neuts % (Manual) Lymphocytes % (Manual) Monocytes % (Manual) Eosinophils % (Manual) Nucleated RBC % Seg Neutrophils # Seg Neutrophils # Man Lymphocytes # (Manual) Monocytes # (Manual) Eosinophils # (Manual) APTT POC ABG pH 7.494 H ABG pH POC ABG pCO2 POC ABG pO2 ABG pO2 ABG HCO3 ABG O2 Saturation ABG Base Excess ABG Hemoglobin VBG pH Oxyhemoglobin Sodium Potassium Chloride Carbon Dioxide BUN Creatinine Glucose POC Glucose 329 H 354 H Lactic Acid Calcium Phosphorus Total Bilirubin AST ALT C-Reactive Protein Total Protein Albumin Triglycerides Amylase Lipase Urine WBC (Auto) Vancomycin Trough Crossmatch 12/20/17 12/20/17 12/20/17 04:08 04:08 04:08 WBC 22.7 H RBC 3.26 L Hgb 10.6 L Hct 32.9 L MCV 101 H MCH 33 H MCHC RDW Plt Count 78 L Lymph % (Auto) Eos % (Auto) [place] # Eos # Baso # Seg Neutrophils % Seg Neuts % (Manual) 80.0 H Lymphocytes % (Manual) 6.0 L Monocytes % (Manual) Eosinophils % (Manual) Nucleated RBC % Seg Neutrophils # Seg Neutrophils # Man 18.2 H Lymphocytes # (Manual) Monocytes # (Manual) Eosinophils # (Manual) APTT POC ABG pH ABG pH POC ABG pCO2 POC ABG pO2 ABG pO2 ABG HCO3 ABG O2 Saturation ABG Base Excess ABG Hemoglobin VBG pH Oxyhemoglobin Sodium Potassium Chloride Carbon Dioxide 31 H BUN 30 H Creatinine 0.6 L Glucose 365 H POC Glucose Lactic Acid Calcium Phosphorus Total Bilirubin AST ALT C-Reactive Protein Total Protein Albumin Triglycerides 981 H Amylase Lipase Urine WBC (Auto) Vancomycin Trough Crossmatch 12/20/17 12/20/17 12/20/17 05:15 10:47 13:40 WBC RBC Hgb Hct MCV MCH MCHC RDW Plt Count Lymph % (Auto) Eos % (Auto) [place] # Eos # Baso # Seg Neutrophils % Seg Neuts % (Manual) Lymphocytes % (Manual) Monocytes % (Manual) Eosinophils % (Manual) Nucleated RBC % Seg Neutrophils # Seg Neutrophils # Man Lymphocytes # (Manual) Monocytes # (Manual) Eosinophils # (Manual) APTT POC ABG pH ABG pH POC ABG pCO2 POC ABG pO2 ABG pO2 ABG HCO3 ABG O2 Saturation ABG Base Excess ABG Hemoglobin VBG pH Oxyhemoglobin Sodium Potassium Chloride Carbon Dioxide BUN Creatinine Glucose POC Glucose 342 H 330 H Lactic Acid Calcium Phosphorus Total Bilirubin AST ALT C-Reactive Protein 7.10 H Total Protein Albumin Triglycerides Amylase Lipase Urine WBC (Auto) Vancomycin Trough Crossmatch 12/20/17 12/20/17 12/20/17 13:40 14:52 16:55 WBC RBC Hgb Hct MCV MCH MCHC RDW Plt Count Lymph % (Auto) Eos % (Auto) [place] # Eos # Baso # Seg Neutrophils % Seg Neuts % (Manual) Lymphocytes % (Manual) Monocytes % (Manual) Eosinophils % (Manual) Nucleated RBC % Seg Neutrophils # Seg Neutrophils # Man Lymphocytes # (Manual) Monocytes # (Manual) Eosinophils # (Manual) APTT POC ABG pH 7.484 H ABG pH POC ABG pCO2 POC ABG pO2 ABG pO2 ABG HCO3 ABG O2 Saturation ABG Base Excess ABG Hemoglobin VBG pH Oxyhemoglobin Sodium Potassium Chloride Carbon Dioxide BUN Creatinine Glucose POC Glucose 293 H Lactic Acid Calcium Phosphorus Total Bilirubin AST ALT C-Reactive Protein Total Protein Albumin Triglycerides 1042 H Amylase Lipase Urine WBC (Auto) Vancomycin Trough Crossmatch 12/20/17 12/20/17 12/21/17 18:00 21:58 02:05 WBC RBC Hgb Hct MCV MCH MCHC RDW Plt Count Lymph % (Auto) Eos % (Auto) [place] # Eos # Baso # Seg Neutrophils % Seg Neuts % (Manual) Lymphocytes % (Manual) Monocytes % (Manual) Eosinophils % (Manual) Nucleated RBC % Seg Neutrophils # Seg Neutrophils # Man Lymphocytes # (Manual) Monocytes # (Manual) Eosinophils # (Manual) APTT POC ABG pH ABG pH POC ABG pCO2 POC ABG pO2 ABG pO2 ABG HCO3 ABG O2 Saturation ABG Base Excess ABG Hemoglobin VBG pH Oxyhemoglobin Sodium Potassium Chloride Carbon Dioxide BUN Creatinine Glucose POC Glucose 268 H 272 H 229 H Lactic Acid Calcium Phosphorus Total Bilirubin AST ALT C-Reactive Protein Total Protein Albumin Triglycerides Amylase Lipase Urine WBC (Auto) Vancomycin Trough Crossmatch 12/21/17 12/21/17 12/21/17 03:59 06:23 08:57 WBC RBC Hgb Hct MCV MCH MCHC RDW Plt Count Lymph % (Auto) Eos % (Auto) [place] # Eos # Baso # Seg Neutrophils % Seg Neuts % (Manual) Lymphocytes % (Manual) Monocytes % (Manual) Eosinophils % (Manual) Nucleated RBC % Seg Neutrophils # Seg Neutrophils # Man Lymphocytes # (Manual) Monocytes # (Manual) Eosinophils # (Manual) APTT POC ABG pH 7.474 H ABG pH POC ABG pCO2 POC ABG pO2 71 L ABG pO2 ABG HCO3 ABG O2 Saturation ABG Base Excess ABG Hemoglobin VBG pH Oxyhemoglobin Sodium Potassium Chloride Carbon Dioxide BUN Creatinine Glucose POC Glucose 182 H 217 H Lactic Acid Calcium Phosphorus Total Bilirubin AST ALT C-Reactive Protein Total Protein Albumin Triglycerides Amylase Lipase Urine WBC (Auto) Vancomycin Trough Crossmatch 12/21/17 12/21/17 12/21/17 13:59 18:00 21:20 WBC RBC Hgb Hct MCV MCH MCHC RDW Plt Count Lymph % (Auto) Eos % (Auto) [place] # Eos # Baso # Seg Neutrophils % Seg Neuts % (Manual) Lymphocytes % (Manual) Monocytes % (Manual) Eosinophils % (Manual) Nucleated RBC % Seg Neutrophils # Seg Neutrophils # Man Lymphocytes # (Manual) Monocytes # (Manual) Eosinophils # (Manual) APTT POC ABG pH ABG pH POC ABG pCO2 POC ABG pO2 ABG pO2 ABG HCO3 ABG O2 Saturation ABG Base Excess ABG Hemoglobin VBG pH Oxyhemoglobin Sodium Potassium Chloride Carbon Dioxide BUN Creatinine Glucose POC Glucose 185 H 176 H 187 H Lactic Acid Calcium Phosphorus Total Bilirubin AST ALT C-Reactive Protein Total Protein Albumin Triglycerides Amylase Lipase Urine WBC (Auto) Vancomycin Trough Crossmatch 12/21/17 12/22/17 12/22/17 23:48 04:39 05:30 WBC RBC Hgb Hct MCV MCH MCHC RDW Plt Count Lymph % (Auto) Eos % (Auto) [place] # Eos # Baso # Seg Neutrophils % Seg Neuts % (Manual) Lymphocytes % (Manual) Monocytes % (Manual) Eosinophils % (Manual) Nucleated RBC % Seg Neutrophils # Seg Neutrophils # Man Lymphocytes # (Manual) Monocytes # (Manual) Eosinophils # (Manual) APTT POC ABG pH 7.528 H ABG pH POC ABG pCO2 POC ABG pO2 63 L ABG pO2 ABG HCO3 ABG O2 Saturation ABG Base Excess ABG Hemoglobin VBG pH Oxyhemoglobin Sodium Potassium Chloride Carbon Dioxide BUN Creatinine Glucose POC Glucose 126 H 117 H Lactic Acid Calcium Phosphorus Total Bilirubin AST ALT C-Reactive Protein Total Protein Albumin Triglycerides Amylase Lipase Urine WBC (Auto) Vancomycin Trough Crossmatch 12/22/17 12/22/17 12/22/17 09:12 10:34 10:34 WBC 29.5 H RBC 3.44 L Hgb 11.2 L Hct 34.2 L MCV 99 H MCH 33 H MCHC RDW 13.1 L Plt Count 97 L Lymph % (Auto) Eos % (Auto) [place] # Eos # Baso # Seg Neutrophils % Seg Neuts % (Manual) 88.0 H Lymphocytes % (Manual) 5.0 L Monocytes % (Manual) Eosinophils % (Manual) Nucleated RBC % Seg Neutrophils # Seg Neutrophils # Man 26.0 H Lymphocytes # (Manual) Monocytes # (Manual) Eosinophils # (Manual) APTT POC ABG pH ABG pH POC ABG pCO2 POC ABG pO2 ABG pO2 ABG HCO3 ABG O2 Saturation ABG Base Excess ABG Hemoglobin VBG pH Oxyhemoglobin Sodium 146 H Potassium 3.1 L Chloride Carbon Dioxide BUN 25 H Creatinine 0.7 L Glucose 146 H POC Glucose 168 H Lactic Acid Calcium 8.1 L Phosphorus Total Bilirubin AST ALT C-Reactive Protein Total Protein Albumin Triglycerides Amylase Lipase Urine WBC (Auto) Vancomycin Trough Crossmatch 12/22/17 12/22/17 12/22/17 14:51 17:21 21:43 WBC RBC Hgb Hct MCV MCH MCHC RDW Plt Count Lymph % (Auto) Eos % (Auto) [place] # Eos # Baso # Seg Neutrophils % Seg Neuts % (Manual) Lymphocytes % (Manual) Monocytes % (Manual) Eosinophils % (Manual) Nucleated RBC % Seg Neutrophils # Seg Neutrophils # Man Lymphocytes # (Manual) Monocytes # (Manual) Eosinophils # (Manual) APTT POC ABG pH ABG pH POC ABG pCO2 POC ABG pO2 ABG pO2 ABG HCO3 ABG O2 Saturation ABG Base Excess ABG Hemoglobin VBG pH Oxyhemoglobin Sodium Potassium Chloride Carbon Dioxide BUN Creatinine Glucose POC Glucose 125 H 110 H 153 H Lactic Acid Calcium Phosphorus Total Bilirubin AST ALT C-Reactive Protein Total Protein Albumin Triglycerides Amylase Lipase Urine WBC (Auto) Vancomycin Trough Crossmatch 12/23/17 12/23/17 12/23/17 04:33 05:28 09:25 WBC 31.4 H RBC 3.05 L Hgb 9.8 L Hct 30.2 L MCV 99 H MCH MCHC RDW 12.9 L Plt Count 101 L Lymph % (Auto) Eos % (Auto) [place] # Eos # Baso # Seg Neutrophils % Seg Neuts % (Manual) 97 H Lymphocytes % (Manual) 2 L Monocytes % (Manual) Eosinophils % (Manual) Nucleated RBC % Seg Neutrophils # Seg Neutrophils # Man 31.1 H Lymphocytes # (Manual) 0.5 L Monocytes # (Manual) Eosinophils # (Manual) APTT POC ABG pH 7.573 H ABG pH POC ABG pCO2 31.0 L POC ABG pO2 63 L ABG pO2 ABG HCO3 ABG O2 Saturation ABG Base Excess ABG Hemoglobin VBG pH Oxyhemoglobin Sodium Potassium Chloride Carbon Dioxide BUN Creatinine Glucose POC Glucose 124 H Lactic Acid Calcium Phosphorus Total Bilirubin AST ALT C-Reactive Protein Total Protein Albumin Triglycerides Amylase Lipase Urine WBC (Auto) Vancomycin Trough Crossmatch 12/23/17 12/23/17 12/23/17 09:25 10:08 14:20 WBC RBC Hgb Hct MCV MCH MCHC RDW Plt Count Lymph % (Auto) Eos % (Auto) [place] # Eos # Baso # Seg Neutrophils % Seg Neuts % (Manual) Lymphocytes % (Manual) Monocytes % (Manual) Eosinophils % (Manual) Nucleated RBC % Seg Neutrophils # Seg Neutrophils # Man Lymphocytes # (Manual) Monocytes # (Manual) Eosinophils # (Manual) APTT POC ABG pH ABG pH POC ABG pCO2 POC ABG pO2 ABG pO2 ABG HCO3 ABG O2 Saturation ABG Base Excess ABG Hemoglobin VBG pH Oxyhemoglobin Sodium Potassium 3.1 L Chloride Carbon Dioxide BUN Creatinine 0.6 L Glucose 169 H POC Glucose 171 H 211 H Lactic Acid Calcium 7.9 L Phosphorus Total Bilirubin AST ALT C-Reactive Protein Total Protein Albumin Triglycerides Amylase Lipase Urine WBC (Auto) Vancomycin Trough Crossmatch 12/23/17 12/23/17 12/24/17 18:59 21:49 01:47 WBC RBC Hgb Hct MCV MCH MCHC RDW Plt Count Lymph % (Auto) Eos % (Auto) [place] # Eos # Baso # Seg Neutrophils % Seg Neuts % (Manual) Lymphocytes % (Manual) Monocytes % (Manual) Eosinophils % (Manual) Nucleated RBC % Seg Neutrophils # Seg Neutrophils # Man Lymphocytes # (Manual) Monocytes # (Manual) Eosinophils # (Manual) APTT POC ABG pH ABG pH POC ABG pCO2 POC ABG pO2 ABG pO2 ABG HCO3 ABG O2 Saturation ABG Base Excess ABG Hemoglobin VBG pH Oxyhemoglobin Sodium Potassium Chloride Carbon Dioxide BUN Creatinine Glucose POC Glucose 175 H 146 H 143 H Lactic Acid Calcium Phosphorus Total Bilirubin AST ALT C-Reactive Protein Total Protein Albumin Triglycerides Amylase Lipase Urine WBC (Auto) Vancomycin Trough Crossmatch 12/24/17 12/24/17 12/24/17 05:40 10:12 13:12 WBC RBC Hgb Hct MCV MCH MCHC RDW Plt Count Lymph % (Auto) Eos % (Auto) [place] # Eos # Baso # Seg Neutrophils % Seg Neuts % (Manual) Lymphocytes % (Manual) Monocytes % (Manual) Eosinophils % (Manual) Nucleated RBC % Seg Neutrophils # Seg Neutrophils # Man Lymphocytes # (Manual) Monocytes # (Manual) Eosinophils # (Manual) APTT POC ABG pH 7.558 H ABG pH POC ABG pCO2 27.6 L POC ABG pO2 71 L ABG pO2 ABG HCO3 ABG O2 Saturation ABG Base Excess ABG Hemoglobin VBG pH Oxyhemoglobin Sodium Potassium Chloride Carbon Dioxide BUN Creatinine Glucose POC Glucose 118 H 111 H Lactic Acid Calcium Phosphorus Total Bilirubin AST ALT C-Reactive Protein Total Protein Albumin Triglycerides Amylase Lipase Urine WBC (Auto) Vancomycin Trough Crossmatch 12/24/17 12/24/17 12/24/17 16:26 20:44 21:49 WBC RBC Hgb Hct MCV MCH MCHC RDW Plt Count Lymph % (Auto) Eos % (Auto) [place] # Eos # Baso # Seg Neutrophils % Seg Neuts % (Manual) Lymphocytes % (Manual) Monocytes % (Manual) Eosinophils % (Manual) Nucleated RBC % Seg Neutrophils # Seg Neutrophils # Man Lymphocytes # (Manual) Monocytes # (Manual) Eosinophils # (Manual) APTT POC ABG pH ABG pH POC ABG pCO2 POC ABG pO2 ABG pO2 ABG HCO3 ABG O2 Saturation ABG Base Excess ABG Hemoglobin VBG pH Oxyhemoglobin Sodium Potassium Chloride Carbon Dioxide BUN Creatinine Glucose POC Glucose 113 H 124 H 115 H Lactic Acid Calcium Phosphorus Total Bilirubin AST ALT C-Reactive Protein Total Protein Albumin Triglycerides Amylase Lipase Urine WBC (Auto) Vancomycin Trough Crossmatch 12/24/17 12/25/17 12/25/17 Unknown 02:26 03:38 WBC RBC Hgb Hct MCV MCH MCHC RDW Plt Count Lymph % (Auto) Eos % (Auto) [place] # Eos # Baso # Seg Neutrophils % Seg Neuts % (Manual) Lymphocytes % (Manual) Monocytes % (Manual) Eosinophils % (Manual) Nucleated RBC % Seg Neutrophils # Seg Neutrophils # Man Lymphocytes # (Manual) Monocytes # (Manual) Eosinophils # (Manual) APTT POC ABG pH 7.503 H ABG pH POC ABG pCO2 POC ABG pO2 66 L ABG pO2 ABG HCO3 ABG O2 Saturation ABG Base Excess ABG Hemoglobin VBG pH Oxyhemoglobin Sodium Potassium 3.0 L Chloride Carbon Dioxide BUN Creatinine 0.5 L Glucose 166 H POC Glucose 106 H Lactic Acid Calcium 7.8 L Phosphorus Total Bilirubin AST ALT C-Reactive Protein Total Protein Albumin Triglycerides Amylase Lipase Urine WBC (Auto) Vancomycin Trough Crossmatch 12/25/17 12/25/17 12/25/17 04:58 12:58 15:06 WBC RBC Hgb Hct MCV MCH MCHC RDW Plt Count Lymph % (Auto) Eos % (Auto) [place] # Eos # Baso # Seg Neutrophils % Seg Neuts % (Manual) Lymphocytes % (Manual) Monocytes % (Manual) Eosinophils % (Manual) Nucleated RBC % Seg Neutrophils # Seg Neutrophils # Man Lymphocytes # (Manual) Monocytes # (Manual) Eosinophils # (Manual) APTT POC ABG pH ABG pH POC ABG pCO2 POC ABG pO2 ABG pO2 ABG HCO3 ABG O2 Saturation ABG Base Excess ABG Hemoglobin VBG pH Oxyhemoglobin Sodium Potassium Chloride Carbon Dioxide BUN Creatinine Glucose POC Glucose 113 H 118 H Lactic Acid Calcium Phosphorus Total Bilirubin AST ALT C-Reactive Protein Total Protein Albumin Triglycerides Amylase Lipase Urine WBC (Auto) Vancomycin Trough 22.5 H Crossmatch 12/25/17 12/25/17 12/25/17 17:59 21:33 Unknown WBC 20.5 H RBC 2.75 L Hgb 9.1 L Hct 27.1 L MCV 99 H MCH 33 H MCHC RDW Plt Count 126 L Lymph % (Auto) Eos % (Auto) [place] # Eos # Baso # Seg Neutrophils % Seg Neuts % (Manual) 89.0 H Lymphocytes % (Manual) 6.0 L Monocytes % (Manual) Eosinophils % (Manual) Nucleated RBC % Seg Neutrophils # Seg Neutrophils # Man 18.2 H Lymphocytes # (Manual) Monocytes # (Manual) Eosinophils # (Manual) APTT POC ABG pH ABG pH POC ABG pCO2 POC ABG pO2 ABG pO2 ABG HCO3 ABG O2 Saturation ABG Base Excess ABG Hemoglobin VBG pH Oxyhemoglobin Sodium Potassium Chloride Carbon Dioxide BUN Creatinine Glucose POC Glucose 145 H 167 H Lactic Acid Calcium Phosphorus Total Bilirubin AST ALT C-Reactive Protein Total Protein Albumin Triglycerides Amylase Lipase Urine WBC (Auto) Vancomycin Trough Crossmatch 03/12/26/17 12/26/17 Unknown 02:26 05:29 WBC RBC Hgb Hct MCV MCH MCHC RDW Plt Count Lymph % (Auto) Eos % (Auto) [place] # Eos # Baso # Seg Neutrophils % Seg Neuts % (Manual) Lymphocytes % (Manual) Monocytes % (Manual) Eosinophils % (Manual) Nucleated RBC % Seg Neutrophils # Seg Neutrophils # Man Lymphocytes # (Manual) Monocytes # (Manual) Eosinophils # (Manual) APTT POC ABG pH ABG pH POC ABG pCO2 POC ABG pO2 ABG pO2 ABG HCO3 ABG O2 Saturation ABG Base Excess ABG Hemoglobin VBG pH Oxyhemoglobin Sodium Potassium 2.8 L* Chloride Carbon Dioxide BUN Creatinine 0.6 L Glucose POC Glucose 167 H 216 H Lactic Acid Calcium 7.4 L Phosphorus Total Bilirubin AST ALT C-Reactive Protein Total Protein Albumin Triglycerides Amylase Lipase Urine WBC (Auto) Vancomycin Trough Crossmatch 12/26/17 12/26/17 12/26/17 10:21 14:30 18:35 WBC RBC Hgb Hct MCV MCH MCHC RDW Plt Count Lymph % (Auto) Eos % (Auto) [place] # Eos # Baso # Seg Neutrophils % Seg Neuts % (Manual) Lymphocytes % (Manual) Monocytes % (Manual) Eosinophils % (Manual) Nucleated RBC % Seg Neutrophils # Seg Neutrophils # Man Lymphocytes # (Manual) Monocytes # (Manual) Eosinophils # (Manual) APTT POC ABG pH ABG pH POC ABG pCO2 POC ABG pO2 ABG pO2 ABG HCO3 ABG O2 Saturation ABG Base Excess ABG Hemoglobin VBG pH Oxyhemoglobin Sodium Potassium Chloride Carbon Dioxide BUN Creatinine Glucose POC Glucose 164 H 157 H 146 H Lactic Acid Calcium Phosphorus Total Bilirubin AST ALT C-Reactive Protein Total Protein Albumin Triglycerides Amylase Lipase Urine WBC (Auto) Vancomycin Trough Crossmatch 12/26/17 12/26/17 12/27/17 21:21 Unknown 01:54 WBC RBC Hgb Hct MCV MCH MCHC RDW Plt Count Lymph % (Auto) Eos % (Auto) [place] # Eos # Baso # Seg Neutrophils % Seg Neuts % (Manual) Lymphocytes % (Manual) Monocytes % (Manual) Eosinophils % (Manual) Nucleated RBC % Seg Neutrophils # Seg Neutrophils # Man Lymphocytes # (Manual) Monocytes # (Manual) Eosinophils # (Manual) APTT POC ABG pH ABG pH POC ABG pCO2 POC ABG pO2 ABG pO2 ABG HCO3 ABG O2 Saturation ABG Base Excess ABG Hemoglobin VBG pH Oxyhemoglobin Sodium Potassium 3.0 L Chloride Carbon Dioxide BUN Creatinine 0.5 L Glucose 166 H POC Glucose 132 H 157 H Lactic Acid Calcium 7.8 L Phosphorus Total Bilirubin AST ALT C-Reactive Protein Total Protein Albumin Triglycerides Amylase Lipase Urine WBC (Auto) Vancomycin Trough Crossmatch 12/27/17 12/27/17 12/27/17 05:20 05:20 05:44 WBC 26.4 H RBC 2.83 L Hgb 9.3 L Hct 27.6 L MCV 98 H MCH 33 H MCHC RDW Plt Count Lymph % (Auto) Eos % (Auto) [place] # Eos # Baso # Seg Neutrophils % Seg Neuts % (Manual) 85.0 H Lymphocytes % (Manual) 5.0 L Monocytes % (Manual) Eosinophils % (Manual) Nucleated RBC % Seg Neutrophils # Seg Neutrophils # Man 22.4 H Lymphocytes # (Manual) Monocytes # (Manual) Eosinophils # (Manual) 0.5 H APTT POC ABG pH ABG pH POC ABG pCO2 POC ABG pO2 ABG pO2 ABG HCO3 ABG O2 Saturation ABG Base Excess ABG Hemoglobin VBG pH Oxyhemoglobin Sodium Potassium 2.3 L* D Chloride Carbon Dioxide BUN 7 L Creatinine 0.6 L Glucose 123 H POC Glucose 128 H Lactic Acid Calcium 8.1 L Phosphorus Total Bilirubin AST ALT C-Reactive Protein Total Protein Albumin Triglycerides Amylase Lipase Urine WBC (Auto) Vancomycin Trough Crossmatch 12/27/17 12/27/17 12/27/17 10:04 14:44 15:30 WBC RBC Hgb Hct MCV MCH MCHC RDW Plt Count Lymph % (Auto) Eos % (Auto) [place] # Eos # Baso # Seg Neutrophils % Seg Neuts % (Manual) Lymphocytes % (Manual) Monocytes % (Manual) Eosinophils % (Manual) Nucleated RBC % Seg Neutrophils # Seg Neutrophils # Man Lymphocytes # (Manual) Monocytes # (Manual) Eosinophils # (Manual) APTT POC ABG pH ABG pH POC ABG pCO2 POC ABG pO2 ABG pO2 ABG HCO3 ABG O2 Saturation ABG Base Excess ABG Hemoglobin VBG pH Oxyhemoglobin Sodium Potassium 3.1 L D Chloride Carbon Dioxide BUN Creatinine Glucose POC Glucose 115 H 128 H Lactic Acid Calcium Phosphorus Total Bilirubin AST ALT C-Reactive Protein Total Protein Albumin Triglycerides Amylase Lipase Urine WBC (Auto) Vancomycin Trough Crossmatch 12/28/17 12/28/17 12/28/17 00:39 02:13 05:17 WBC RBC Hgb Hct MCV MCH MCHC RDW Plt Count Lymph % (Auto) Eos % (Auto) [place] # Eos # Baso # Seg Neutrophils % Seg Neuts % (Manual) Lymphocytes % (Manual) Monocytes % (Manual) Eosinophils % (Manual) Nucleated RBC % Seg Neutrophils # Seg Neutrophils # Man Lymphocytes # (Manual) Monocytes # (Manual) Eosinophils # (Manual) APTT POC ABG pH ABG pH 7.497 H POC ABG pCO2 POC ABG pO2 ABG pO2 71.4 L ABG HCO3 29.9 H ABG O2 Saturation ABG Base Excess 6.2 H ABG Hemoglobin 7.9 L VBG pH Oxyhemoglobin 94.9 L Sodium Potassium Chloride Carbon Dioxide BUN Creatinine Glucose POC Glucose 112 H 108 H Lactic Acid Calcium Phosphorus Total Bilirubin AST ALT C-Reactive Protein Total Protein Albumin Triglycerides Amylase Lipase Urine WBC (Auto) Vancomycin Trough Crossmatch 12/28/17 12/28/17 12/28/17 08:47 08:47 09:10 WBC 28.1 H RBC 2.76 L Hgb 9.1 L Hct 27.0 L MCV 98 H MCH 33 H MCHC RDW Plt Count Lymph % (Auto) Eos % (Auto) [place] # Eos # Baso # Seg Neutrophils % Seg Neuts % (Manual) Lymphocytes % (Manual) Monocytes % (Manual) Eosinophils % (Manual) Nucleated RBC % Seg Neutrophils # Seg Neutrophils # Man Lymphocytes # (Manual) Monocytes # (Manual) Eosinophils # (Manual) APTT POC ABG pH ABG pH POC ABG pCO2 POC ABG pO2 ABG pO2 ABG HCO3 ABG O2 Saturation ABG Base Excess ABG Hemoglobin VBG pH Oxyhemoglobin Sodium Potassium 2.2 L* D Chloride Carbon Dioxide BUN 5 L Creatinine 0.5 L Glucose 106 H POC Glucose Lactic Acid Calcium 8.3 L Phosphorus 2.20 L Total Bilirubin AST ALT C-Reactive Protein Total Protein Albumin Triglycerides Amylase Lipase Urine WBC (Auto) Vancomycin Trough Crossmatch 12/28/17 12/28/17 12/28/17 13:28 14:22 18:48 WBC RBC Hgb Hct MCV MCH MCHC RDW Plt Count Lymph % (Auto) Eos % (Auto) [place] # Eos # Baso # Seg Neutrophils % Seg Neuts % (Manual) Lymphocytes % (Manual) Monocytes % (Manual) Eosinophils % (Manual) Nucleated RBC % Seg Neutrophils # Seg Neutrophils # Man Lymphocytes # (Manual) Monocytes # (Manual) Eosinophils # (Manual) APTT POC ABG pH ABG pH 7.476 H POC ABG pCO2 POC ABG pO2 ABG pO2 167.7 H ABG HCO3 30.9 H ABG O2 Saturation 99.1 H ABG Base Excess 6.7 H ABG Hemoglobin 8.5 L VBG pH Oxyhemoglobin Sodium Potassium Chloride Carbon Dioxide BUN Creatinine Glucose POC Glucose 141 H 129 H Lactic Acid Calcium Phosphorus Total Bilirubin AST ALT C-Reactive Protein Total Protein Albumin Triglycerides Amylase Lipase Urine WBC (Auto) Vancomycin Trough Crossmatch 12/28/17 12/29/17 12/29/17 21:22 02:45 05:11 WBC RBC Hgb Hct MCV MCH MCHC RDW Plt Count Lymph % (Auto) Eos % (Auto) [place] # Eos # Baso # Seg Neutrophils % Seg Neuts % (Manual) Lymphocytes % (Manual) Monocytes % (Manual) Eosinophils % (Manual) Nucleated RBC % Seg Neutrophils # Seg Neutrophils # Man Lymphocytes # (Manual) Monocytes # (Manual) Eosinophils # (Manual) APTT POC ABG pH ABG pH POC ABG pCO2 POC ABG pO2 ABG pO2 ABG HCO3 ABG O2 Saturation ABG Base Excess ABG Hemoglobin VBG pH Oxyhemoglobin Sodium Potassium Chloride Carbon Dioxide BUN Creatinine Glucose POC Glucose 123 H 138 H 138 H Lactic Acid Calcium Phosphorus Total Bilirubin AST ALT C-Reactive Protein Total Protein Albumin Triglycerides Amylase Lipase Urine WBC (Auto) Vancomycin Trough Crossmatch 12/29/17 12/29/17 12/29/17 05:50 08:04 08:04 WBC 20.8 H RBC 2.26 L Hgb 7.5 L Hct 22.7 L MCV 100 H MCH 33 H MCHC RDW Plt Count Lymph % (Auto) Eos % (Auto) [place] # Eos # Baso # Seg Neutrophils % Seg Neuts % (Manual) 93.0 H Lymphocytes % (Manual) 2.0 L Monocytes % (Manual) Eosinophils % (Manual) Nucleated RBC % Seg Neutrophils # Seg Neutrophils # Man 19.3 H Lymphocytes # (Manual) 0.4 L Monocytes # (Manual) Eosinophils # (Manual) 0.7 H APTT POC ABG pH ABG pH 7.467 H POC ABG pCO2 POC ABG pO2 ABG pO2 ABG HCO3 28.2 H ABG O2 Saturation ABG Base Excess 4.0 H ABG Hemoglobin < 5.1 L VBG pH Oxyhemoglobin Sodium Potassium 3.0 L D Chloride Carbon Dioxide BUN Creatinine 0.5 L Glucose 147 H POC Glucose Lactic Acid Calcium 7.8 L Phosphorus Total Bilirubin AST ALT C-Reactive Protein Total Protein 5.6 L Albumin 2.4 L Triglycerides Amylase Lipase Urine WBC (Auto) Vancomycin Trough Crossmatch 12/29/17 12/29/17 12/29/17 08:20 10:59 14:09 WBC RBC Hgb Hct MCV MCH MCHC RDW Plt Count Lymph % (Auto) Eos % (Auto) [place] # Eos # Baso # Seg Neutrophils % Seg Neuts % (Manual) Lymphocytes % (Manual) Monocytes % (Manual) Eosinophils % (Manual) Nucleated RBC % Seg Neutrophils # Seg Neutrophils # Man Lymphocytes # (Manual) Monocytes # (Manual) Eosinophils # (Manual) APTT POC ABG pH ABG pH POC ABG pCO2 POC ABG pO2 ABG pO2 ABG HCO3 ABG O2 Saturation ABG Base Excess ABG Hemoglobin VBG pH Oxyhemoglobin Sodium Potassium Chloride Carbon Dioxide BUN Creatinine Glucose POC Glucose 153 H 186 H 183 H Lactic Acid Calcium Phosphorus Total Bilirubin AST ALT C-Reactive Protein Total Protein Albumin Triglycerides Amylase Lipase Urine WBC (Auto) Vancomycin Trough Crossmatch 12/29/17 12/29/17 12/29/17 18:03 22:05 22:56 WBC RBC Hgb Hct MCV MCH MCHC RDW Plt Count Lymph % (Auto) Eos % (Auto) [place] # Eos # Baso # Seg Neutrophils % Seg Neuts % (Manual) Lymphocytes % (Manual) Monocytes % (Manual) Eosinophils % (Manual) Nucleated RBC % Seg Neutrophils # Seg Neutrophils # Man Lymphocytes # (Manual) Monocytes # (Manual) Eosinophils # (Manual) APTT POC ABG pH ABG pH POC ABG pCO2 POC ABG pO2 ABG pO2 ABG HCO3 ABG O2 Saturation ABG Base Excess ABG Hemoglobin VBG pH Oxyhemoglobin Sodium Potassium Chloride Carbon Dioxide BUN Creatinine Glucose POC Glucose 159 H 146 H 179 H Lactic Acid Calcium Phosphorus Total Bilirubin AST ALT C-Reactive Protein Total Protein Albumin Triglycerides Amylase Lipase Urine WBC (Auto) Vancomycin Trough Crossmatch 12/30/17 12/30/17 12/30/17 02:03 04:50 04:50 WBC 18.3 H RBC 2.22 L Hgb 7.4 L Hct 23.0 L MCV 104 H MCH 33 H MCHC RDW Plt Count 137 L Lymph % (Auto) 9.0 L Eos % (Auto) [place] # Eos # 0.5 H Baso # Seg Neutrophils % 84.9 H Seg Neuts % (Manual) Lymphocytes % (Manual) Monocytes % (Manual) Eosinophils % (Manual) Nucleated RBC % Seg Neutrophils # 15.6 H Seg Neutrophils # Man Lymphocytes # (Manual) Monocytes # (Manual) Eosinophils # (Manual) APTT POC ABG pH ABG pH POC ABG pCO2 POC ABG pO2 ABG pO2 ABG HCO3 ABG O2 Saturation ABG Base Excess ABG Hemoglobin VBG pH Oxyhemoglobin Sodium 147 H Potassium 3.1 L D Chloride 107.5 H Carbon Dioxide BUN Creatinine 0.5 L Glucose 120 H POC Glucose 118 H Lactic Acid Calcium 7.4 L Phosphorus Total Bilirubin AST ALT C-Reactive Protein Total Protein Albumin Triglycerides Amylase Lipase Urine WBC (Auto) Vancomycin Trough Crossmatch 12/30/17 12/30/17 12/30/17 05:04 13:53 17:33 WBC RBC Hgb Hct MCV MCH MCHC RDW Plt Count Lymph % (Auto) Eos % (Auto) [place] # Eos # Baso # Seg Neutrophils % Seg Neuts % (Manual) Lymphocytes % (Manual) Monocytes % (Manual) Eosinophils % (Manual) Nucleated RBC % Seg Neutrophils # Seg Neutrophils # Man Lymphocytes # (Manual) Monocytes # (Manual) Eosinophils # (Manual) APTT POC ABG pH ABG pH POC ABG pCO2 POC ABG pO2 ABG pO2 ABG HCO3 ABG O2 Saturation ABG Base Excess ABG Hemoglobin VBG pH Oxyhemoglobin Sodium Potassium Chloride Carbon Dioxide BUN Creatinine Glucose POC Glucose 150 H 113 H 145 H Lactic Acid Calcium Phosphorus Total Bilirubin AST ALT C-Reactive Protein Total Protein Albumin Triglycerides Amylase Lipase Urine WBC (Auto) Vancomycin Trough Crossmatch 12/31/17 12/31/17 12/31/17 01:54 03:15 03:15 WBC 17.1 H RBC 2.08 L Hgb 6.9 L Hct 20.6 L MCV 99 H MCH 33 H MCHC RDW 13.1 L Plt Count Lymph % (Auto) 10.5 L Eos % (Auto) [place] # Eos # 0.6 H Baso # Seg Neutrophils % 82.3 H Seg Neuts % (Manual) Lymphocytes % (Manual) Monocytes % (Manual) Eosinophils % (Manual) Nucleated RBC % Seg Neutrophils # 14.0 H Seg Neutrophils # Man Lymphocytes # (Manual) Monocytes # (Manual) Eosinophils # (Manual) APTT POC ABG pH ABG pH POC ABG pCO2 POC ABG pO2 ABG pO2 ABG HCO3 ABG O2 Saturation ABG Base Excess ABG Hemoglobin VBG pH Oxyhemoglobin Sodium Potassium 3.5 L Chloride Carbon Dioxide BUN Creatinine 0.6 L Glucose POC Glucose 69 L Lactic Acid Calcium 7.8 L Phosphorus Total Bilirubin AST ALT C-Reactive Protein Total Protein Albumin Triglycerides Amylase Lipase Urine WBC (Auto) Vancomycin Trough Crossmatch 12/31/17 12/31/17 12/31/17 05:15 09:25 10:17 WBC RBC Hgb Hct MCV MCH MCHC RDW Plt Count Lymph % (Auto) Eos % (Auto) [place] # Eos # Baso # Seg Neutrophils % Seg Neuts % (Manual) Lymphocytes % (Manual) Monocytes % (Manual) Eosinophils % (Manual) Nucleated RBC % Seg Neutrophils # Seg Neutrophils # Man Lymphocytes # (Manual) Monocytes # (Manual) Eosinophils # (Manual) APTT POC ABG pH ABG pH 7.516 H POC ABG pCO2 POC ABG pO2 ABG pO2 69.2 L ABG HCO3 28.7 H ABG O2 Saturation ABG Base Excess 5.3 H ABG Hemoglobin 6.6 L VBG pH Oxyhemoglobin 93.8 L Sodium Potassium Chloride Carbon Dioxide BUN Creatinine Glucose POC Glucose 143 H Lactic Acid Calcium Phosphorus Total Bilirubin AST ALT C-Reactive Protein Total Protein Albumin Triglycerides Amylase Lipase Urine WBC (Auto) Vancomycin Trough Crossmatch See Detail 12/31/17 12/31/17 12/31/17 14:20 18:30 21:40 WBC RBC Hgb Hct MCV MCH MCHC RDW Plt Count Lymph % (Auto) Eos % (Auto) [place] # Eos # Baso # Seg Neutrophils % Seg Neuts % (Manual) Lymphocytes % (Manual) Monocytes % (Manual) Eosinophils % (Manual) Nucleated RBC % Seg Neutrophils # Seg Neutrophils # Man Lymphocytes # (Manual) Monocytes # (Manual) Eosinophils # (Manual) APTT POC ABG pH ABG pH POC ABG pCO2 POC ABG pO2 ABG pO2 ABG HCO3 ABG O2 Saturation ABG Base Excess ABG Hemoglobin VBG pH Oxyhemoglobin Sodium Potassium Chloride Carbon Dioxide BUN Creatinine Glucose POC Glucose 175 H 137 H 182 H Lactic Acid Calcium Phosphorus Total Bilirubin AST ALT C-Reactive Protein Total Protein Albumin Triglycerides Amylase Lipase Urine WBC (Auto) Vancomycin Trough Crossmatch 12/31/17 01/01/18 01/01/18 23:34 02:09 04:00 WBC 16.4 H RBC 2.41 L Hgb 7.8 L Hct 23.6 L MCV 98 H MCH 33 H MCHC RDW Plt Count Lymph % (Auto) 10.7 L Eos % (Auto) [place] # Eos # 0.7 H Baso # 0.2 H Seg Neutrophils % 79.0 H Seg Neuts % (Manual) Lymphocytes % (Manual) Monocytes % (Manual) Eosinophils % (Manual) Nucleated RBC % Seg Neutrophils # 12.9 H Seg Neutrophils # Man Lymphocytes # (Manual) Monocytes # (Manual) Eosinophils # (Manual) APTT POC ABG pH ABG pH POC ABG pCO2 POC ABG pO2 ABG pO2 ABG HCO3 ABG O2 Saturation ABG Base Excess ABG Hemoglobin VBG pH Oxyhemoglobin Sodium Potassium Chloride Carbon Dioxide BUN Creatinine Glucose POC Glucose 132 H 117 H Lactic Acid Calcium Phosphorus Total Bilirubin AST ALT C-Reactive Protein Total Protein Albumin Triglycerides Amylase Lipase Urine WBC (Auto) Vancomycin Trough Crossmatch 01/01/18 01/01/18 01/01/18 04:00 04:04 05:32 WBC RBC Hgb Hct MCV MCH MCHC RDW Plt Count Lymph % (Auto) Eos % (Auto) [place] # Eos # Baso # Seg Neutrophils % Seg Neuts % (Manual) Lymphocytes % (Manual) Monocytes % (Manual) Eosinophils % (Manual) Nucleated RBC % Seg Neutrophils # Seg Neutrophils # Man Lymphocytes # (Manual) Monocytes # (Manual) Eosinophils # (Manual) APTT POC ABG pH ABG pH 7.458 H POC ABG pCO2 POC ABG pO2 ABG pO2 67.5 L ABG HCO3 27.5 H ABG O2 Saturation 94.4 L ABG Base Excess 3.4 H ABG Hemoglobin 7.8 L VBG pH Oxyhemoglobin 92.1 L Sodium Potassium Chloride Carbon Dioxide BUN Creatinine 0.4 L Glucose 129 H POC Glucose 129 H Lactic Acid Calcium 7.9 L Phosphorus Total Bilirubin AST ALT C-Reactive Protein Total Protein Albumin Triglycerides Amylase Lipase Urine WBC (Auto) Vancomycin Trough Crossmatch 01/01/18 01/01/1818 10:10 12:38 17:27 WBC RBC Hgb Hct MCV MCH MCHC RDW Plt Count Lymph % (Auto) Eos % (Auto) [place] # Eos # Baso # Seg Neutrophils % Seg Neuts % (Manual) Lymphocytes % (Manual) Monocytes % (Manual) Eosinophils % (Manual) Nucleated RBC % Seg Neutrophils # Seg Neutrophils # Man Lymphocytes # (Manual) Monocytes # (Manual) Eosinophils # (Manual) APTT POC ABG pH ABG pH POC ABG pCO2 POC ABG pO2 ABG pO2 ABG HCO3 ABG O2 Saturation ABG Base Excess ABG Hemoglobin VBG pH Oxyhemoglobin Sodium Potassium Chloride Carbon Dioxide BUN Creatinine Glucose POC Glucose 155 H 179 H 152 H Lactic Acid Calcium Phosphorus Total Bilirubin AST ALT C-Reactive Protein Total Protein Albumin Triglycerides Amylase Lipase Urine WBC (Auto) Vancomycin Trough Crossmatch 01/01/18 01/02/18 01/02/18 21:36 01:42 04:10 WBC 12.1 H RBC 2.29 L Hgb 7.5 L Hct 22.7 L MCV 99 H MCH 33 H MCHC RDW Plt Count Lymph % (Auto) Eos % (Auto) 5.5 H [place] # 0.9 H Eos # 0.7 H Baso # Seg Neutrophils % Seg Neuts % (Manual) Lymphocytes % (Manual) Monocytes % (Manual) Eosinophils % (Manual) Nucleated RBC % Seg Neutrophils # 8.3 H Seg Neutrophils # Man Lymphocytes # (Manual) Monocytes # (Manual) Eosinophils # (Manual) APTT POC ABG pH ABG pH POC ABG pCO2 POC ABG pO2 ABG pO2 ABG HCO3 ABG O2 Saturation ABG Base Excess ABG Hemoglobin VBG pH Oxyhemoglobin Sodium Potassium Chloride Carbon Dioxide BUN Creatinine Glucose POC Glucose 118 H 117 H Lactic Acid Calcium Phosphorus Total Bilirubin AST ALT C-Reactive Protein Total Protein Albumin Triglycerides Amylase Lipase Urine WBC (Auto) Vancomycin Trough Crossmatch 01/02/18 01/02/18 01/02/18 04:10 04:57 13:42 WBC RBC Hgb Hct MCV MCH MCHC RDW Plt Count Lymph % (Auto) Eos % (Auto) [place] # Eos # Baso # Seg Neutrophils % Seg Neuts % (Manual) Lymphocytes % (Manual) Monocytes % (Manual) Eosinophils % (Manual) Nucleated RBC % Seg Neutrophils # Seg Neutrophils # Man Lymphocytes # (Manual) Monocytes # (Manual) Eosinophils # (Manual) APTT POC ABG pH ABG pH POC ABG pCO2 POC ABG pO2 ABG pO2 ABG HCO3 ABG O2 Saturation ABG Base Excess ABG Hemoglobin VBG pH Oxyhemoglobin Sodium Potassium Chloride 97.0 L Carbon Dioxide BUN Creatinine 0.4 L Glucose POC Glucose 107 H 133 H Lactic Acid Calcium 8.1 L Phosphorus Total Bilirubin AST ALT C-Reactive Protein Total Protein 6.0 L Albumin 2.5 L Triglycerides Amylase Lipase Urine WBC (Auto) Vancomycin Trough Crossmatch 01/02/18 01/02/18 01/03/18 17:33 22:11 02:18 WBC RBC Hgb Hct MCV MCH MCHC RDW Plt Count Lymph % (Auto) Eos % (Auto) [place] # Eos # Baso # Seg Neutrophils % Seg Neuts % (Manual) Lymphocytes % (Manual) Monocytes % (Manual) Eosinophils % (Manual) Nucleated RBC % Seg Neutrophils # Seg Neutrophils # Man Lymphocytes # (Manual) Monocytes # (Manual) Eosinophils # (Manual) APTT POC ABG pH ABG pH POC ABG pCO2 POC ABG pO2 ABG pO2 ABG HCO3 ABG O2 Saturation ABG Base Excess ABG Hemoglobin VBG pH Oxyhemoglobin Sodium Potassium Chloride Carbon Dioxide BUN Creatinine Glucose POC Glucose 146 H 171 H 162 H Lactic Acid Calcium Phosphorus Total Bilirubin AST ALT C-Reactive Protein Total Protein Albumin Triglycerides Amylase Lipase Urine WBC (Auto) Vancomycin Trough Crossmatch 01/03/18 01/03/18 01/03/18 04:56 05:21 17:20 WBC RBC Hgb Hct MCV MCH MCHC RDW Plt Count Lymph % (Auto) Eos % (Auto) [place] # Eos # Baso # Seg Neutrophils % Seg Neuts % (Manual) Lymphocytes % (Manual) Monocytes % (Manual) Eosinophils % (Manual) Nucleated RBC % Seg Neutrophils # Seg Neutrophils # Man Lymphocytes # (Manual) Monocytes # (Manual) Eosinophils # (Manual) APTT POC ABG pH ABG pH POC ABG pCO2 POC ABG pO2 ABG pO2 79.5 L ABG HCO3 31.4 H ABG O2 Saturation ABG Base Excess 6.3 H ABG Hemoglobin 10.4 L VBG pH Oxyhemoglobin 94.2 L Sodium Potassium Chloride Carbon Dioxide BUN Creatinine Glucose POC Glucose 163 H 153 H Lactic Acid Calcium Phosphorus Total Bilirubin AST ALT C-Reactive Protein Total Protein Albumin Triglycerides Amylase Lipase Urine WBC (Auto) Vancomycin Trough Crossmatch 01/03/18 01/03/18 01/04/18 17:50 19:52 00:40 WBC RBC Hgb Hct MCV MCH MCHC RDW Plt Count Lymph % (Auto) Eos % (Auto) [place] # Eos # Baso # Seg Neutrophils % Seg Neuts % (Manual) Lymphocytes % (Manual) Monocytes % (Manual) Eosinophils % (Manual) Nucleated RBC % Seg Neutrophils # Seg Neutrophils # Man Lymphocytes # (Manual) Monocytes # (Manual) Eosinophils # (Manual) APTT POC ABG pH ABG pH POC ABG pCO2 POC ABG pO2 ABG pO2 ABG HCO3 ABG O2 Saturation ABG Base Excess ABG Hemoglobin VBG pH Oxyhemoglobin Sodium Potassium Chloride Carbon Dioxide BUN Creatinine Glucose POC Glucose 157 H 147 H 158 H Lactic Acid Calcium Phosphorus Total Bilirubin AST ALT C-Reactive Protein Total Protein Albumin Triglycerides Amylase Lipase Urine WBC (Auto) Vancomycin Trough Crossmatch 01/04/18 01/04/18 01/04/18 04:01 05:13 06:12 WBC 11.5 H RBC 2.95 L Hgb 9.8 L Hct 29.5 L D MCV 100 H MCH 33 H MCHC RDW Plt Count Lymph % (Auto) Eos % (Auto) [place] # Eos # Baso # Seg Neutrophils % Seg Neuts % (Manual) Lymphocytes % (Manual) Monocytes % (Manual) Eosinophils % (Manual) 6.0 H Nucleated RBC % Seg Neutrophils # Seg Neutrophils # Man Lymphocytes # (Manual) Monocytes # (Manual) Eosinophils # (Manual) 0.7 H APTT POC ABG pH ABG pH 7.498 H POC ABG pCO2 POC ABG pO2 ABG pO2 129.5 H ABG HCO3 30.1 H ABG O2 Saturation ABG Base Excess 6.4 H ABG Hemoglobin 9.3 L VBG pH Oxyhemoglobin Sodium Potassium Chloride Carbon Dioxide BUN Creatinine Glucose POC Glucose 163 H Lactic Acid Calcium Phosphorus Total Bilirubin AST ALT C-Reactive Protein Total Protein Albumin Triglycerides Amylase Lipase Urine WBC (Auto) Vancomycin Trough Crossmatch 01/04/18 01/04/18 01/04/18 06:12 10:55 14:29 WBC RBC Hgb Hct MCV MCH MCHC RDW Plt Count Lymph % (Auto) Eos % (Auto) [place] # Eos # Baso # Seg Neutrophils % Seg Neuts % (Manual) Lymphocytes % (Manual) Monocytes % (Manual) Eosinophils % (Manual) Nucleated RBC % Seg Neutrophils # Seg Neutrophils # Man Lymphocytes # (Manual) Monocytes # (Manual) Eosinophils # (Manual) APTT POC ABG pH ABG pH POC ABG pCO2 POC ABG pO2 ABG pO2 ABG HCO3 ABG O2 Saturation ABG Base Excess ABG Hemoglobin VBG pH Oxyhemoglobin Sodium Potassium Chloride Carbon Dioxide BUN Creatinine 0.5 L Glucose 174 H POC Glucose 187 H 144 H Lactic Acid Calcium Phosphorus Total Bilirubin AST 41 H ALT C-Reactive Protein Total Protein Albumin 2.9 L Triglycerides Amylase Lipase Urine WBC (Auto) Vancomycin Trough Crossmatch 01/04/18 01/04/18 01/05/18 17:25 21:56 01:59 WBC RBC Hgb Hct MCV MCH MCHC RDW Plt Count Lymph % (Auto) Eos % (Auto) [place] # Eos # Baso # Seg Neutrophils % Seg Neuts % (Manual) Lymphocytes % (Manual) Monocytes % (Manual) Eosinophils % (Manual) Nucleated RBC % Seg Neutrophils # Seg Neutrophils # Man Lymphocytes # (Manual) Monocytes # (Manual) Eosinophils # (Manual) APTT POC ABG pH ABG pH POC ABG pCO2 POC ABG pO2 ABG pO2 ABG HCO3 ABG O2 Saturation ABG Base Excess ABG Hemoglobin VBG pH Oxyhemoglobin Sodium Potassium Chloride Carbon Dioxide BUN Creatinine Glucose POC Glucose 156 H 171 H 162 H Lactic Acid Calcium Phosphorus Total Bilirubin AST ALT C-Reactive Protein Total Protein Albumin Triglycerides Amylase Lipase Urine WBC (Auto) Vancomycin Trough Crossmatch 01/05/18 01/05/18 01/05/18 03:50 06:00 06:07 WBC RBC Hgb Hct MCV MCH MCHC RDW Plt Count Lymph % (Auto) Eos % (Auto) [place] # Eos # Baso # Seg Neutrophils % Seg Neuts % (Manual) Lymphocytes % (Manual) Monocytes % (Manual) Eosinophils % (Manual) Nucleated RBC % Seg Neutrophils # Seg Neutrophils # Man Lymphocytes # (Manual) Monocytes # (Manual) Eosinophils # (Manual) APTT POC ABG pH ABG pH POC ABG pCO2 POC ABG pO2 ABG pO2 64.6 L ABG HCO3 30.2 H ABG O2 Saturation 91.3 L ABG Base Excess 5.5 H ABG Hemoglobin 10.1 L VBG pH Oxyhemoglobin 89.0 L Sodium Potassium Chloride Carbon Dioxide BUN Creatinine 0.4 L Glucose 144 H POC Glucose 136 H Lactic Acid Calcium Phosphorus Total Bilirubin AST ALT C-Reactive Protein Total Protein Albumin Triglycerides Amylase Lipase Urine WBC (Auto) Vancomycin Trough Crossmatch 01/05/18 01/05/18 01/05/18 10:46 14:03 17:31 WBC RBC Hgb Hct MCV MCH MCHC RDW Plt Count Lymph % (Auto) Eos % (Auto) [place] # Eos # Baso # Seg Neutrophils % Seg Neuts % (Manual) Lymphocytes % (Manual) Monocytes % (Manual) Eosinophils % (Manual) Nucleated RBC % Seg Neutrophils # Seg Neutrophils # Man Lymphocytes # (Manual) Monocytes # (Manual) Eosinophils # (Manual) APTT POC ABG pH ABG pH POC ABG pCO2 POC ABG pO2 ABG pO2 ABG HCO3 ABG O2 Saturation ABG Base Excess ABG Hemoglobin VBG pH Oxyhemoglobin Sodium Potassium Chloride Carbon Dioxide BUN Creatinine Glucose POC Glucose 147 H 141 H 192 H Lactic Acid Calcium Phosphorus Total Bilirubin AST ALT C-Reactive Protein Total Protein Albumin Triglycerides Amylase Lipase Urine WBC (Auto) Vancomycin Trough Crossmatch 01/05/18 01/05/18 01/06/18 22:12 Unknown 01:58 WBC RBC Hgb Hct MCV MCH MCHC RDW Plt Count Lymph % (Auto) Eos % (Auto) [place] # Eos # Baso # Seg Neutrophils % Seg Neuts % (Manual) Lymphocytes % (Manual) Monocytes % (Manual) Eosinophils % (Manual) Nucleated RBC % Seg Neutrophils # Seg Neutrophils # Man Lymphocytes # (Manual) Monocytes # (Manual) Eosinophils # (Manual) APTT POC ABG pH ABG pH 7.463 H POC ABG pCO2 POC ABG pO2 ABG pO2 74.0 L ABG HCO3 29.4 H ABG O2 Saturation ABG Base Excess 5.2 H ABG Hemoglobin 10.0 L VBG pH Oxyhemoglobin 93.4 L Sodium Potassium Chloride Carbon Dioxide BUN Creatinine Glucose POC Glucose 209 H 138 H Lactic Acid Calcium Phosphorus Total Bilirubin AST ALT C-Reactive Protein Total Protein Albumin Triglycerides Amylase Lipase Urine WBC (Auto) Vancomycin Trough Crossmatch 01/06/18 01/06/18 01/06/18 03:14 05:30 05:30 WBC 12.6 H RBC 3.16 L Hgb 10.4 L Hct 31.7 L MCV 100 H MCH 33 H MCHC RDW 15.5 H Plt Count Lymph % (Auto) Eos % (Auto) [place] # Eos # Baso # Seg Neutrophils % Seg Neuts % (Manual) 72.0 H Lymphocytes % (Manual) Monocytes % (Manual) 9.0 H Eosinophils % (Manual) Nucleated RBC % 1.0 H Seg Neutrophils # Seg Neutrophils # Man 9.1 H Lymphocytes # (Manual) Monocytes # (Manual) 1.1 H Eosinophils # (Manual) APTT POC ABG pH ABG pH POC ABG pCO2 POC ABG pO2 ABG pO2 ABG HCO3 28.8 H ABG O2 Saturation ABG Base Excess 4.2 H ABG Hemoglobin 9.3 L VBG pH Oxyhemoglobin 94.7 L Sodium 136 L Potassium Chloride 94.2 L Carbon Dioxide BUN Creatinine 0.4 L Glucose 146 H POC Glucose Lactic Acid Calcium Phosphorus Total Bilirubin AST ALT C-Reactive Protein Total Protein Albumin 3.1 L Triglycerides Amylase Lipase Urine WBC (Auto) Vancomycin Trough Crossmatch 01/06/18 01/06/18 05:42 10:00 WBC RBC Hgb Hct MCV MCH MCHC RDW Plt Count Lymph % (Auto) Eos % (Auto) [place] # Eos # Baso # Seg Neutrophils % Seg Neuts % (Manual) Lymphocytes % (Manual) Monocytes % (Manual) Eosinophils % (Manual) Nucleated RBC % Seg Neutrophils # Seg Neutrophils # Man Lymphocytes # (Manual) Monocytes # (Manual) Eosinophils # (Manual) APTT POC ABG pH ABG pH POC ABG pCO2 POC ABG pO2 ABG pO2 ABG HCO3 ABG O2 Saturation ABG Base Excess ABG Hemoglobin VBG pH Oxyhemoglobin Sodium Potassium Chloride Carbon Dioxide BUN Creatinine Glucose POC Glucose 158 H 155 H Lactic Acid Calcium Phosphorus Total Bilirubin AST ALT C-Reactive Protein Total Protein Albumin Triglycerides Amylase Lipase Urine WBC (Auto) Vancomycin Trough Crossmatch
--- NOTE | 2018-01-06 17:57 | Progress Note ---
Assessment and Plan Assessment and plan: --Acute hypoxic hypercapnic respiratory failure : Vent dependent, unable to wean Continue Vent support, pulmonary following Considering tracheostomy --Anemia; received PRBC transfusion, and its low stable --Sepsis/aspiration pneumonia/ARDS Off antibiotics ,s/p Zyvox cefepime and Flagyl, ID following --Alcohol abuse: Continue thiamine, Librium as needed --Hypotension; improved, off Levophed --Thrombocytopenia, improving, no evidence of bleeding --Moderate to Severe protein calorie malnutrition; nutrition supplements, tube feeding --DM type 2-continue Accu-Chek sliding scale coverage long-acting insulin, tube feeding --DVT prophylaxis: Lovenox and SCDs Plan of care reviewed with the patient's and his nurse Critical care time 31 minutes The high probability of a clinically significant sudden or life-threatening deterioration of the [infectious, respiratory, hematologic] system(s) required my full and direct attention, intervention and personal management. The aggregate critical care time was [31 ] minutes. This time is in addition to the time spent performing reported procedures but including [ X] Data review and interpretation [ X] Patient assessment and monitoring of vital signs [ X ] Documentation [X] Medication orders and management History Interval history: Patient seen and examined medical records reviewed Remains intubated on ventilatory support, unable to wean No new events reported by the nursing Alert and awake, not in acute distress Vital signs reviewed Hospitalist Physical - Constitutional Vitals: Temp Pulse Resp BP Pulse Ox 98.1 F 107 H 20 105/70 94 01/06/18 16:00 01/06/18 17:00 01/06/18 17:00 01/06/18 17:00 01/06/18 17:00 General appearance: Present: no acute distress, well-nourished, other ( intubated on vent) - EENT Eyes: Present: PERRL, EOM intact - Neck Neck: Present: supple, normal ROM - Respiratory Respiratory effort: normal Respiratory: bilateral: diminished, rhonchi, negative: rales, wheezing - Cardiovascular Rhythm: regular Heart Sounds: Present: S1 & S2 - Extremities Extremities: no ischemia, No edema - Abdominal General gastrointestinal: soft, non-tender, non-distended, normal bowel sounds - Integumentary Integumentary: Present: clear, warm - Psychiatric Psychiatric: other (non communicative) - Neurologic Neurologic: other (noncommunicative) Results - Labs CBC & Chem 7: 01/06/18 05:30 01/06/18 05:30 Labs: Laboratory Last Values WBC 12.6 K/mm3 (4.5-11.0) H 01/06/18 05:30 RBC 3.16 M/mm3 (3.65-5.03) L 01/06/18 05:30 Hgb 10.4 gm/dl (11.8-15.2) L 01/06/18 05:30 Hct 31.7 % (35.5-45.6) L 01/06/18 05:30 MCV 100 fl (84-94) H 01/06/18 05:30 MCH 33 pg (28-32) H 01/06/18 05:30 MCHC 33 % (32-34) 01/06/18 05:30 RDW 15.5 % (13.2-15.2) H 01/06/18 05:30 Plt Count 266 K/mm3 (140-440) 01/06/18 05:30 Lymph % (Auto) 18.5 % (13.4-35.0) 01/02/18 04:10 Winn % (Auto) 7.1 % (0.0-7.3) 01/02/18 04:10 Eos % (Auto) 5.5 % (0.0-4.3) H 01/02/18 04:10 Baso % (Auto) 0.3 % (0.0-1.8) 01/02/18 04:10 Lymph # 2.2 K/mm3 (1.2-5.4) 01/02/18 04:10 Winn # 0.9 K/mm3 (0.0-0.8) H 01/02/18 04:10 Eos # 0.7 K/mm3 (0.0-0.4) H 01/02/18 04:10 Baso # 0.0 K/mm3 (0.0-0.1) 01/02/18 04:10 Add Manual Diff Complete 01/06/18 05:30 Total Counted 100 01/06/18 05:30 Seg Neutrophils % 68.6 % (40.0-70.0) 01/02/18 04:10 Seg Neuts % (Manual) 72.0 % (40.0-70.0) H 01/06/18 05:30 Band Neutrophils % 0 % 01/06/18 05:30 Lymphocytes % (Manual) 17.0 % (13.4-35.0) 01/06/18 05:30 Reactive Lymphs % (Man) 0 % 01/06/18 05:30 Monocytes % (Manual) 9.0 % (0.0-7.3) H 01/06/18 05:30 Eosinophils % (Manual) 2.0 % (0.0-4.3) 01/06/18 05:30 Basophils % (Manual) 0 % (0.0-1.8) 01/06/18 05:30 Metamyelocytes % 0 % 01/06/18 05:30 Myelocytes % 0 % 01/06/18 05:30 Promyelocytes % 0 % 01/06/18 05:30 Blast Cells % 0 % 01/06/18 05:30 Nucleated RBC % 1.0 % (0.0-0.9) H 01/06/18 05:30 Seg Neutrophils # 8.3 K/mm3 (1.8-7.7) H 01/02/18 04:10 Seg Neutrophils # Man 9.1 K/mm3 (1.8-7.7) H 01/06/18 05:30 Band Neutrophils # 0.0 K/mm3 01/06/18 05:30 Lymphocytes # (Manual) 2.1 K/mm3 (1.2-5.4) 01/06/18 05:30 Abs React Lymphs (Man) 0.0 K/mm3 01/06/18 05:30 Monocytes # (Manual) 1.1 K/mm3 (0.0-0.8) H 01/06/18 05:30 Eosinophils # (Manual) 0.3 K/mm3 (0.0-0.4) 01/06/18 05:30 Basophils # (Manual) 0.0 K/mm3 (0.0-0.1) 01/06/18 05:30 Metamyelocytes # 0.0 K/mm3 01/06/18 05:30 Myelocytes # 0.0 K/mm3 01/06/18 05:30 Promyelocytes # 0.0 K/mm3 01/06/18 05:30 Blast Cells # 0.0 K/mm3 01/06/18 05:30 Pathologist Review 12/23/17 09:25 WBC Morphology Not Reportable 01/06/18 05:30 Hypersegmented Neuts Not Reportable 01/06/18 05:30 Hyposegmented Neuts Not Reportable 01/06/18 05:30 Hypogranular Neuts Not Reportable 01/06/18 05:30 Smudge Cells Not Reportable 01/06/18 05:30 Toxic Granulation Not Reportable 01/06/18 05:30 Toxic Vacuolation Not Reportable 01/06/18 05:30 Dohle Bodies Not Reportable 01/06/18 05:30 Pelger-Huet Anomaly Not Reportable 01/06/18 05:30 Mary Rods Not Reportable 01/06/18 05:30 Platelet Estimate Appears normal 01/06/18 05:30 Clumped Platelets Not Reportable 01/06/18 05:30 Plt Clumps, EDTA Not Reportable 01/06/18 05:30 Large Platelets Not Reportable 01/06/18 05:30 Giant Platelets Not Reportable 01/06/18 05:30 Platelet Satelliting Not Reportable 01/06/18 05:30 Plt Morphology Comment Not Reportable 01/06/18 05:30 RBC Morphology Not Reportable 01/06/18 05:30 Dimorphic RBCs Not Reportable 01/06/18 05:30 Polychromasia 1+ 01/06/18 05:30 Hypochromasia Not Reportable 01/06/18 05:30 Poikilocytosis Not Reportable 01/06/18 05:30 Anisocytosis 1+ 01/06/18 05:30 Microcytosis Not Reportable 01/06/18 05:30 Macrocytosis Few 01/06/18 05:30 Spherocytes Not Reportable 01/06/18 05:30 Pappenheimer Bodies Not Reportable 01/06/18 05:30 Sickle Cells Not Reportable 01/06/18 05:30 Target Cells Not Reportable 01/06/18 05:30 Tear Drop Cells Not Reportable 01/06/18 05:30 Ovalocytes Not Reportable 01/06/18 05:30 Stomatocytes 1+ 01/06/18 05:30 Helmet Cells Not Reportable 01/06/18 05:30 [place] Bodies Not Reportable 01/06/18 05:30 Mims Rings Not Reportable 01/06/18 05:30 Leedey Cells Not Reportable 01/06/18 05:30 Bite Cells Not Reportable 01/06/18 05:30 Crenated Cell Not Reportable 01/06/18 05:30 Elliptocytes Not Reportable 01/06/18 05:30 Acanthocytes (Spur) Not Reportable 01/06/18 05:30 Rouleaux Not Reportable 01/06/18 05:30 Hemoglobin C Crystals Not Reportable 01/06/18 05:30 Schistocytes Not Reportable 01/06/18 05:30 Malaria parasites Not Reportable 01/06/18 05:30 Vipul Bodies Not Reportable 01/06/18 05:30 Hem Pathologist Commnt No 01/06/18 05:30 PT 14.9 Sec. (12.2-14.9) 12/15/17 04:05 INR 1.11 (0.87-1.13) 12/15/17 04:05 APTT 20.9 Sec. (24.2-36.6) L 12/15/17 04:05 POC ABG pH 7.503 (7.35-7.45) H 12/25/17 03:38 ABG pH 7.441 pH Units (7.350-7.450) 01/06/18 03:14 POC ABG pCO2 35.8 (35-45) 12/25/17 03:38 ABG pCO2 43.2 mm Hg 01/06/18 03:14 POC ABG pO2 66 (80-105) L 12/25/17 03:38 ABG pO2 84.9 mm Hg (80.0-90.0) 01/06/18 03:14 POC ABG HCO3 28.1 12/25/17 03:38 ABG HCO3 28.8 mmol/L (20.0-26.0) H 01/06/18 03:14 POC ABG Total CO2 29 12/25/17 03:38 POC ABG O2 Sat 95 12/25/17 03:38 ABG O2 Saturation 97.0 % (95.0-99.0) 01/06/18 03:14 ABG O2 Content 12.6 (0.0-44) 01/06/18 03:14 POC ABG Base Excess 5 12/25/17 03:38 ABG Base Excess 4.2 mmol/L (-2.0-3.0) H 01/06/18 03:14 ABG Hemoglobin 9.3 gm/dl (14.0-18.0) L 01/06/18 03:14 ABG Carboxyhemoglobin 2.0 % (0.0-5.0) 01/06/18 03:14 ABG Methemoglobin 0.4 % (0.0-1.5) 01/06/18 03:14 VBG pH 7.472 (7.320-7.420) H 12/12/17 19:18 Oxyhemoglobin 94.7 % (95.0-99.0) L 01/06/18 03:14 FiO2 30 % 01/06/18 03:14 Sodium 136 mmol/L (137-145) L 01/06/18 05:30 Potassium 3.8 mmol/L (3.6-5.0) 01/06/18 05:30 Chloride 94.2 mmol/L (98-107) L 01/06/18 05:30 Carbon Dioxide 26 mmol/L (22-30) 01/06/18 05:30 Anion Gap 20 mmol/L 01/06/18 05:30 BUN 12 mg/dL (9-20) 01/06/18 05:30 Creatinine 0.4 mg/dL (0.8-1.5) L 01/06/18 05:30 Estimated GFR > 60 ml/min 01/06/18 05:30 BUN/Creatinine Ratio 30 % 01/06/18 05:30 Glucose 146 mg/dL (75-100) H 01/06/18 05:30 POC Glucose 156 (70-105) H 01/06/18 17:45 Lactic Acid 2.00 mmol/L (0.7-2.0) 12/13/17 19:38 Calcium 9.5 mg/dL (8.4-10.2) 01/06/18 05:30 Phosphorus 3.10 mg/dL (2.5-4.5) 01/06/18 05:30 Magnesium 1.90 mg/dL (1.7-2.3) 01/06/18 05:30 Total Bilirubin 0.40 mg/dL (0.1-1.2) 01/06/18 05:30 AST 30 units/L (5-40) 01/06/18 05:30 ALT 42 units/L (7-56) 01/06/18 05:30 Alkaline Phosphatase 74 units/L (35-129) 01/06/18 05:30 C-Reactive Protein 7.10 mg/dL (0.00-1.30) H 12/20/17 13:40 NT-Pro-B Natriuret Pep 409.9 pg/mL (0-450) 12/12/17 19:02 Total Protein 7.5 g/dL (6.3-8.2) 01/06/18 05:30 Albumin 3.1 g/dL (3.9-5) L 01/06/18 05:30 Albumin/Globulin Ratio 0.7 % 01/06/18 05:30 Triglycerides 1042 mg/dL (2-149) H 12/20/17 13:40 Amylase 20 units/L (27-131) L 12/13/17 13:47 Lipase 9 units/L (13-60) L 12/13/17 13:47 Urine Color Neeta (Yellow) 12/15/17 17:00 Urine Turbidity Hazy (Clear) 12/15/17 17:00 Urine pH 6.0 (5.0-7.0) 12/15/17 17:00 Ur Specific [place] 1.027 (1.003-1.030) 12/15/17 17:00 Urine Protein 30 mg/dl mg/dL (Negative) 12/15/17 17:00 Urine Glucose (UA) Neg mg/dL (Negative) 12/15/17 17:00 Urine Ketones Tr mg/dL (Negative) 12/15/17 17:00 Urine Blood Lg (Negative) 12/15/17 17:00 Urine Nitrite Neg (Negative) 12/15/17 17:00 Urine Bilirubin Neg (Negative) 12/15/17 17:00 Urine Ictotest Positive (Negative) 12/12/17 20:42 Urine Urobilinogen < 2.0 mg/dL (<2.0) 12/15/17 17:00 Ur Leukocyte Esterase Tr (Negative) 12/15/17 17:00 Urine WBC (Auto) 38.0 /HPF (0.0-6.0) H 12/15/17 17:00 Urine RBC (Auto) 65.0 /HPF (0.0-6.0) 12/15/17 17:00 U Epithel Cells (Auto) < 1.0 /HPF (0-13.0) 12/12/17 20:42 Urine Bacteria (Auto) 1+ /HPF (Negative) 12/15/17 17:00 Urine Mucus 1+ /HPF 12/12/17 20:42 Vancomycin Trough 22.5 ug/mL (5.0-20.0) H 12/25/17 12:58 JERMAIN Screen Negative (Negative) 12/18/17 16:44 Proteinase 3 (PR3) Ab <1.0 AI (<1.0) 12/18/17 16:33 Myeloperoxidase Ab <1.0 AI (<1.0) 12/18/17 16:33 Complement C3 113 mg/dL (82-185) 12/18/17 16:33 Complement C4 15 mg/dL (15-53) 12/18/17 16:33 Hepatitis A IgM Ab Non-reactive (NonReactive) 12/20/17 13:40 Hep Bs Antigen Non-reactive (Negative) 12/20/17 13:40 Hep B Core IgM Ab Non-reactive (NonReactive) 12/20/17 13:40 Hepatitis C Antibody Non-reactive (NonReactive) 12/20/17 13:40 HIV 1&2 Antibody Rapid Non react (Non React) 12/20/17 13:40 HIV P24 Antigen Non react (Non React) 12/20/17 13:40 Influenza A (Rapid) Negative (Negative) 12/12/17 22:00 Influenza B (Rapid) Negative (Negative) 12/12/17 22:00 Urine Legionella Ag Not detected (Not Detected) 12/14/17 16:15 Miscellaneous Test Flexitest 1 12/14/17 16:15 Blood Type O POSITIVE 12/31/17 09:25 Antibody Screen Negative 12/31/17 09:25 Crossmatch See Detail 12/31/17 09:25
--- NOTE | 2018-01-06 18:39 | Consultation ---
History of Present Illness Consult date: 01/06/18 Reason for consult: other (trach/PEG consult) Requesting physician: CAIT MIDDLETON Chief complaint: Respiratory Failure - History of present illness History of present illness: 47-year-old male presented emergency department with a three-day history of shortness of breath. Patient subsequently developed respiratory failure. Clinically appears to have ARDS. Patient had to be re-intubated recently. He is currently failing his morning spontaneous breathing trials. General surgery is consult to evaluate for tracheostomy and PEG tube placement. Patient unable to give any history. History obtained from chart. Past History Past Medical History: diabetes, other (asthma) Past Surgical History: No surgical history Social history: smoking, alcohol abuse Family history: no significant family history Medications and Allergies Allergies Allergy/AdvReac Type Severity Reaction Status Date / Time Ivcfagl-Ppr-Glw Reductase Allergy Unknown Verified 12/12/17 20:09 Inhibitor Home Medications Medication Instructions Recorded Confirmed Last Taken Type No Known Home Medications [No 12/13/17 12/13/17 Unknown History Reported Home Medications] Active Meds: Active Medications Acetaminophen (Tylenol) 650 mg PO Q6H PRN PRN Reason: Pain, Mild (1-3),temp 100.5or> Last Admin: 12/31/17 20:03 Dose: 650 mg Albuterol (Proventil) 2.5 mg IH Q4HRT PRN PRN Reason: Shortness Of Breath Last Admin: 12/13/17 03:01 Dose: 2.5 mg Albuterol/Ipratropium (Duoneb *Not For Prn Use*) 1 ampul IH TIDRT [facility] Last Admin: 01/06/18 14:36 Dose: 1 ampul Lipase/Protease/Amylase (Pancreaze Dr 10,500 Unit) 1 each FEEDTUBE PRN PRN PRN Reason: For Clogged Feeding Tube Chlordiazepoxide HCl (Librium) 50 mg PO Q6HR [facility] Last Admin: 01/06/18 18:01 Dose: 50 mg Dextrose (D50w (25gm) Syringe) 50 ml IV PRN PRN PRN Reason: Hypoglycemia Enoxaparin Sodium (Lovenox) 40 mg SUB-Q QDAY@2200 [facility] Last Admin: 01/05/18 22:01 Dose: 40 mg Famotidine (Pepcid) 20 mg PO BID [facility] Last Admin: 01/06/18 09:23 Dose: 20 mg Fentanyl (Sublimaze) 50 mcg IV Q2H PRN PRN Reason: agitation Last Admin: 01/06/18 15:44 Dose: 50 mcg Hydralazine HCl (Apresoline) 10 mg IV Q4HR PRN PRN Reason: SBP>170 Last Admin: 12/27/17 10:10 Dose: 10 mg Hydrophilic Ointment (Vaseline Lip Therapy) 1 applic TP DIRECT PRN PRN Reason: DRY LIPS Last Admin: 12/31/17 02:08 Dose: 1 applic Norepinephrine (Levophed Drip 4 Mg/Ns 250 Ml) 4 mg in 250 mls @ 7.5 mls/hr IV TITR LEIF; Protocol Last Titration: 12/29/17 17:41 Dose: 0 mcg/min, 0 mls/hr Dexmedetomidine HCl 400 mcg/ (Sodium Chloride) 104 mls @ 5.25 mls/hr IV TITRATE LEIF; Protocol Last Admin: 01/03/18 15:33 Dose: 0.5 mcg/kg/hr, 13.13 mls/hr Insulin Glargine (Lantus) 26 units SUB-Q DAILY [facility] Last Admin: 01/06/18 09:23 Dose: 26 units Insulin Human Lispro (Humalog) 0 unit SUB-Q Q4H LEIF; Protocol Last Admin: 01/06/18 18:02 Dose: 3 unit Labetalol HCl (Normodyne) 20 mg IV Q6H PRN PRN Reason: Blood Pressure Metoprolol Tartrate (Lopressor) 50 mg PO BID [facility] Last Admin: 01/06/18 09:23 Dose: 50 mg Multi-Ingred Cream/Lotion/Oil/Oint (Artificial Tears Ophth Oint) 1 applic OU Q4HR PRN PRN Reason: Dry Eye(s) Ondansetron HCl (Zofran) 4 mg IV Q8H PRN PRN Reason: Nausea And Vomiting Last Admin: 01/01/18 04:20 Dose: 4 mg Potassium Chloride (Potassium Chloride) 20 meq PO QDAY [facility] Last Admin: 01/06/18 09:23 Dose: 20 meq Senna/Docusate Sodium (Senokot S) 2 tab PO BID PRN PRN Reason: Laxative Effect Simple Syrup (Simple Syrup) 15 ml FEEDTUBE PRN PRN PRN Reason: Hypoglycemia Last Admin: 12/31/17 02:07 Dose: 15 ml Simple Syrup (Simple Syrup) 30 ml FEEDTUBE PRN PRN PRN Reason: Hypoglycemia Sodium Bicarbonate (Sodium Bicarbonate) 325 mg FEEDTUBE PRN PRN PRN Reason: For Clogged Feeding Tube Sodium Chloride (Sodium Chloride Flush Syringe 10 Ml) 10 ml IV BID [facility] Last Admin: 01/06/18 09:24 Dose: 10 ml Sodium Chloride (Sodium Chloride Flush Syringe 10 Ml) 10 ml IV PRN PRN PRN Reason: LINE FLUSH Last Admin: 01/04/18 05:30 Dose: 10 ml Thiamine HCl (Vitamin B-1) 100 mg PO QDAY [facility] Last Admin: 01/06/18 09:23 Dose: 100 mg Review of Systems ROS unobtainable: due to endotracheal tube Exam Vital Signs Temp Pulse Resp BP Pulse Ox 103 F H 130 H 30 H 119/75 92 12/12/17 17:35 12/12/17 17:35 12/12/17 17:35 12/12/17 17:35 12/12/17 17:35 - General physical appearance Positive: no distress, no pain - Neck Positive: trachea midline (tracheal anatomy easily palpable.), other (no signs of prior surgery. No signs of infection. No pulsation appreciated near sternal notch) - Respiratory Positive: normal expansion, normal respiratory effort, other (currently intubated. Vent settings reviewed.) - Cardiovascular Rhythm: regular - Abdomen Abdomen: Present: soft. Absent: tender, surgical scars Hernia: umbilical - Integumentary no rash Results - Labs 01/06/18 05:30 01/06/18 05:30 Abnormal lab results 01/05/18 01/06/18 01/06/18 Range/Units 22:12 01:58 03:14 WBC (4.5-11.0) K/mm3 RBC (3.65-5.03) M/mm3 Hgb (11.8-15.2) gm/dl Hct (35.5-45.6) % MCV (84-94) fl MCH (28-32) pg RDW (13.2-15.2) % Seg Neuts % (Manual) (40.0-70.0) % Monocytes % (Manual) (0.0-7.3) % Nucleated RBC % (0.0-0.9) % Seg Neutrophils # Man (1.8-7.7) K/mm3 Monocytes # (Manual) (0.0-0.8) K/mm3 ABG HCO3 28.8 H (20.0-26.0) mmol/L ABG Base Excess 4.2 H (-2.0-3.0) mmol/L ABG Hemoglobin 9.3 L (14.0-18.0) gm/dl Oxyhemoglobin 94.7 L (95.0-99.0) % Sodium (137-145) mmol/L Chloride (98-107) mmol/L Creatinine (0.8-1.5) mg/dL Glucose (75-100) mg/dL POC Glucose 209 H 138 H (70-105) Albumin (3.9-5) g/dL 01/06/18 01/06/18 01/06/18 Range/Units 05:30 05:30 05:42 WBC 12.6 H (4.5-11.0) K/mm3 RBC 3.16 L (3.65-5.03) M/mm3 Hgb 10.4 L (11.8-15.2) gm/dl Hct 31.7 L (35.5-45.6) % MCV 100 H (84-94) fl MCH 33 H (28-32) pg RDW 15.5 H (13.2-15.2) % Seg Neuts % (Manual) 72.0 H (40.0-70.0) % Monocytes % (Manual) 9.0 H (0.0-7.3) % Nucleated RBC % 1.0 H (0.0-0.9) % Seg Neutrophils # Man 9.1 H (1.8-7.7) K/mm3 Monocytes # (Manual) 1.1 H (0.0-0.8) K/mm3 ABG HCO3 (20.0-26.0) mmol/L ABG Base Excess (-2.0-3.0) mmol/L ABG Hemoglobin (14.0-18.0) gm/dl Oxyhemoglobin (95.0-99.0) % Sodium 136 L (137-145) mmol/L Chloride 94.2 L (98-107) mmol/L Creatinine 0.4 L (0.8-1.5) mg/dL Glucose 146 H (75-100) mg/dL POC Glucose 158 H (70-105) Albumin 3.1 L (3.9-5) g/dL 01/06/18 01/06/18 01/06/18 Range/Units 10:00 14:40 17:45 WBC (4.5-11.0) K/mm3 RBC (3.65-5.03) M/mm3 Hgb (11.8-15.2) gm/dl Hct (35.5-45.6) % MCV (84-94) fl MCH (28-32) pg RDW (13.2-15.2) % Seg Neuts % (Manual) (40.0-70.0) % Monocytes % (Manual) (0.0-7.3) % Nucleated RBC % (0.0-0.9) % Seg Neutrophils # Man (1.8-7.7) K/mm3 Monocytes # (Manual) (0.0-0.8) K/mm3 ABG HCO3 (20.0-26.0) mmol/L ABG Base Excess (-2.0-3.0) mmol/L ABG Hemoglobin (14.0-18.0) gm/dl Oxyhemoglobin (95.0-99.0) % Sodium (137-145) mmol/L Chloride (98-107) mmol/L Creatinine (0.8-1.5) mg/dL Glucose (75-100) mg/dL POC Glucose 155 H 115 H 156 H (70-105) Albumin (3.9-5) g/dL Diabetes panel 01/06/18 Range/Units 05:30 Sodium 136 L (137-145) mmol/L Potassium 3.8 (3.6-5.0) mmol/L Chloride 94.2 L (98-107) mmol/L Carbon Dioxide 26 (22-30) mmol/L BUN 12 (9-20) mg/dL Creatinine 0.4 L (0.8-1.5) mg/dL Glucose 146 H (75-100) mg/dL Calcium 9.5 (8.4-10.2) mg/dL AST 30 (5-40) units/L ALT 42 (7-56) units/L Alkaline Phosphatase 74 (35-129) units/L Total Protein 7.5 (6.3-8.2) g/dL Albumin 3.1 L (3.9-5) g/dL Calcium panel 01/06/18 Range/Units 05:30 Calcium 9.5 (8.4-10.2) mg/dL Phosphorus 3.10 (2.5-4.5) mg/dL Albumin 3.1 L (3.9-5) g/dL Pituitary panel 01/06/18 Range/Units 05:30 Sodium 136 L (137-145) mmol/L Potassium 3.8 (3.6-5.0) mmol/L Chloride 94.2 L (98-107) mmol/L Carbon Dioxide 26 (22-30) mmol/L BUN 12 (9-20) mg/dL Creatinine 0.4 L (0.8-1.5) mg/dL Glucose 146 H (75-100) mg/dL Calcium 9.5 (8.4-10.2) mg/dL Adrenal panel 01/06/18 Range/Units 05:30 Sodium 136 L (137-145) mmol/L Potassium 3.8 (3.6-5.0) mmol/L Chloride 94.2 L (98-107) mmol/L Carbon Dioxide 26 (22-30) mmol/L BUN 12 (9-20) mg/dL Creatinine 0.4 L (0.8-1.5) mg/dL Glucose 146 H (75-100) mg/dL Calcium 9.5 (8.4-10.2) mg/dL Total Bilirubin 0.40 (0.1-1.2) mg/dL AST 30 (5-40) units/L ALT 42 (7-56) units/L Alkaline Phosphatase 74 (35-129) units/L Total Protein 7.5 (6.3-8.2) g/dL Albumin 3.1 L (3.9-5) g/dL - Imaging Chest x-ray: report reviewed, image reviewed CT scan - abdomen: report reviewed, image reviewed CT scan - chest: report reviewed, image reviewed Assessment and Plan - Patient Problems (1) Acute respiratory failure Current Visit: Yes Status: Acute Plan to address problem: Patient is currently stable. Pt is a candidate for trach/PEG placement. Will discuss with and obtain consent. Will try to schedule this week. Time=45min
[2018-01-06] MEDS: TYLENOL PO PRN (20:18)
[2018-01-06] MEDS: LOVENOX SUB-Q SCH (22:08)
[2018-01-07] MEDS: LIBRIUM PO SCH ×4 (00:19→18:04)
[2018-01-07] MEDS: HumaLOG SUB-Q SCH ×6 (02:00→22:13)
[2018-01-07] MEDS: DUONEB *Not for PRN Use IH SCH ×3 (07:46→19:55)
--- NOTE | 2018-01-07 07:51 | Progress Note ---
Assessment and Plan Assessment and plan: --Acute hypoxic hypercapnic respiratory failure : Vent dependent, unable to wean Continue Vent support, pulmonary following Pulmonary recommend tracheostomy --Anemia; received PRBC transfusion, and its low stable --Sepsis/aspiration pneumonia/ARDS Off antibiotics ,s/p Zyvox cefepime and Flagyl, ID following --Alcohol abuse: Continue thiamine, Librium as needed --Hypotension; improved, off Levophed --Thrombocytopenia, improving, no evidence of bleeding --Moderate to Severe protein calorie malnutrition; nutrition supplements, tube feeding --DM type 2-continue Accu-Chek sliding scale coverage long-acting insulin, tube feeding --DVT prophylaxis: Lovenox and SCDs Plan of care reviewed with the patient's and his nurse Critical care time 31 minutes The high probability of a clinically significant sudden or life-threatening deterioration of the [infectious, respiratory, hematologic] system(s) required my full and direct attention, intervention and personal management. The aggregate critical care time was [31 ] minutes. This time is in addition to the time spent performing reported procedures but including [ X] Data review and interpretation [ X] Patient assessment and monitoring of vital signs [ X ] Documentation [X] Medication orders and management History Interval history: Patient Seen and examined in ICU Medical records reviewed No new overnight events reported by the nursing staff Remains intubated, vent dependent, unable to wean Vital signs reviewed Hospitalist Physical - Constitutional Vitals: Temp Pulse Resp BP Pulse Ox 98.8 F 108 H 24 131/88 93 01/07/18 04:00 01/07/18 07:46 01/07/18 07:46 01/07/18 07:43 01/07/18 07:43 General appearance: Present: no acute distress, well-nourished, other ( intubated on vent) - EENT Eyes: Present: PERRL, EOM intact ENT: other (ET tube and Dobbhoff in place) - Neck Neck: Present: supple, normal ROM - Respiratory Respiratory effort: normal Respiratory: bilateral: diminished, negative: rales, rhonchi, wheezing - Cardiovascular Rhythm: regular Heart Sounds: Present: S1 & S2 - Extremities Extremities: no ischemia, No edema - Abdominal General gastrointestinal: soft, non-tender, non-distended - Integumentary Integumentary: Present: clear, warm - Psychiatric Psychiatric: other (intubated and sedated) - Neurologic Neurologic: other (intubated and sedated) Results - Labs CBC & Chem 7: 01/06/18 05:30 01/06/18 05:30 Labs: Laboratory Last Values WBC 12.6 K/mm3 (4.5-11.0) H 01/06/18 05:30 RBC 3.16 M/mm3 (3.65-5.03) L 01/06/18 05:30 Hgb 10.4 gm/dl (11.8-15.2) L 01/06/18 05:30 Hct 31.7 % (35.5-45.6) L 01/06/18 05:30 MCV 100 fl (84-94) H 01/06/18 05:30 MCH 33 pg (28-32) H 01/06/18 05:30 MCHC 33 % (32-34) 01/06/18 05:30 RDW 15.5 % (13.2-15.2) H 01/06/18 05:30 Plt Count 266 K/mm3 (140-440) 01/06/18 05:30 Lymph % (Auto) 18.5 % (13.4-35.0) 01/02/18 04:10 [place] % (Auto) 7.1 % (0.0-7.3) 01/02/18 04:10 Eos % (Auto) 5.5 % (0.0-4.3) H 01/02/18 04:10 Baso % (Auto) 0.3 % (0.0-1.8) 01/02/18 04:10 Lymph # 2.2 K/mm3 (1.2-5.4) 01/02/18 04:10 [place] # 0.9 K/mm3 (0.0-0.8) H 01/02/18 04:10 Eos # 0.7 K/mm3 (0.0-0.4) H 01/02/18 04:10 Baso # 0.0 K/mm3 (0.0-0.1) 01/02/18 04:10 Add Manual Diff Complete 01/06/18 05:30 Total Counted 100 01/06/18 05:30 Seg Neutrophils % 68.6 % (40.0-70.0) 01/02/18 04:10 Seg Neuts % (Manual) 72.0 % (40.0-70.0) H 01/06/18 05:30 Band Neutrophils % 0 % 01/06/18 05:30 Lymphocytes % (Manual) 17.0 % (13.4-35.0) 01/06/18 05:30 Reactive Lymphs % (Man) 0 % 01/06/18 05:30 Monocytes % (Manual) 9.0 % (0.0-7.3) H 01/06/18 05:30 Eosinophils % (Manual) 2.0 % (0.0-4.3) 01/06/18 05:30 Basophils % (Manual) 0 % (0.0-1.8) 01/06/18 05:30 Metamyelocytes % 0 % 01/06/18 05:30 Myelocytes % 0 % 01/06/18 05:30 Promyelocytes % 0 % 01/06/18 05:30 Blast Cells % 0 % 01/06/18 05:30 Nucleated RBC % 1.0 % (0.0-0.9) H 01/06/18 05:30 Seg Neutrophils # 8.3 K/mm3 (1.8-7.7) H 01/02/18 04:10 Seg Neutrophils # Man 9.1 K/mm3 (1.8-7.7) H 01/06/18 05:30 Band Neutrophils # 0.0 K/mm3 01/06/18 05:30 Lymphocytes # (Manual) 2.1 K/mm3 (1.2-5.4) 01/06/18 05:30 Abs React Lymphs (Man) 0.0 K/mm3 01/06/18 05:30 Monocytes # (Manual) 1.1 K/mm3 (0.0-0.8) H 01/06/18 05:30 Eosinophils # (Manual) 0.3 K/mm3 (0.0-0.4) 01/06/18 05:30 Basophils # (Manual) 0.0 K/mm3 (0.0-0.1) 01/06/18 05:30 Metamyelocytes # 0.0 K/mm3 01/06/18 05:30 Myelocytes # 0.0 K/mm3 01/06/18 05:30 Promyelocytes # 0.0 K/mm3 01/06/18 05:30 Blast Cells # 0.0 K/mm3 01/06/18 05:30 Pathologist Review 12/23/17 09:25 WBC Morphology Not Reportable 01/06/18 05:30 Hypersegmented Neuts Not Reportable 01/06/18 05:30 Hyposegmented Neuts Not Reportable 01/06/18 05:30 Hypogranular Neuts Not Reportable 01/06/18 05:30 Smudge Cells Not Reportable 01/06/18 05:30 Toxic Granulation Not Reportable 01/06/18 05:30 Toxic Vacuolation Not Reportable 01/06/18 05:30 Dohle Bodies Not Reportable 01/06/18 05:30 Pelger-Huet Anomaly Not Reportable 01/06/18 05:30 Mary Rods Not Reportable 01/06/18 05:30 Platelet Estimate Appears normal 01/06/18 05:30 Clumped Platelets Not Reportable 01/06/18 05:30 Plt Clumps, EDTA Not Reportable 01/06/18 05:30 Large Platelets Not Reportable 01/06/18 05:30 Giant Platelets Not Reportable 01/06/18 05:30 Platelet Satelliting Not Reportable 01/06/18 05:30 Plt Morphology Comment Not Reportable 01/06/18 05:30 RBC Morphology Not Reportable 01/06/18 05:30 Dimorphic RBCs Not Reportable 01/06/18 05:30 Polychromasia 1+ 01/06/18 05:30 Hypochromasia Not Reportable 01/06/18 05:30 Poikilocytosis Not Reportable 01/06/18 05:30 Anisocytosis 1+ 01/06/18 05:30 Microcytosis Not Reportable 01/06/18 05:30 Macrocytosis Few 01/06/18 05:30 Spherocytes Not Reportable 01/06/18 05:30 Pappenheimer Bodies Not Reportable 01/06/18 05:30 Sickle Cells Not Reportable 01/06/18 05:30 Target Cells Not Reportable 01/06/18 05:30 Tear Drop Cells Not Reportable 01/06/18 05:30 Ovalocytes Not Reportable 01/06/18 05:30 Stomatocytes 1+ 01/06/18 05:30 Helmet Cells Not Reportable 01/06/18 05:[address] [place] Bodies Not Reportable 01/06/18 05:30 [place] Rings Not Reportable 01/06/18 05:30 Chidi Cells Not Reportable 01/06/18 05:30 Bite Cells Not Reportable 01/06/18 05:30 Crenated Cell Not Reportable 01/06/18 05:30 Elliptocytes Not Reportable 01/06/18 05:30 Acanthocytes (Spur) Not Reportable 01/06/18 05:30 Rouleaux Not Reportable 01/06/18 05:30 Hemoglobin C Crystals Not Reportable 01/06/18 05:30 Schistocytes Not Reportable 01/06/18 05:30 Malaria parasites Not Reportable 01/06/18 05:30 Vipul Bodies Not Reportable 01/06/18 05:30 Hem Pathologist Commnt No 01/06/18 05:30 PT 14.9 Sec. (12.2-14.9) 12/15/17 04:05 INR 1.11 (0.87-1.13) 12/15/17 04:05 APTT 20.9 Sec. (24.2-36.6) L 12/15/17 04:05 POC ABG pH 7.503 (7.35-7.45) H 12/25/17 03:38 ABG pH 7.441 pH Units (7.350-7.450) 01/06/18 03:14 POC ABG pCO2 35.8 (35-45) 12/25/17 03:38 ABG pCO2 43.2 mm Hg 01/06/18 03:14 POC ABG pO2 66 (80-105) L 12/25/17 03:38 ABG pO2 84.9 mm Hg (80.0-90.0) 01/06/18 03:14 POC ABG HCO3 28.1 12/25/17 03:38 ABG HCO3 28.8 mmol/L (20.0-26.0) H 01/06/18 03:14 POC ABG Total CO2 29 12/25/17 03:38 POC ABG O2 Sat 95 12/25/17 03:38 ABG O2 Saturation 97.0 % (95.0-99.0) 01/06/18 03:14 ABG O2 Content 12.6 (0.0-44) 01/06/18 03:14 POC ABG Base Excess 5 12/25/17 03:38 ABG Base Excess 4.2 mmol/L (-2.0-3.0) H 01/06/18 03:14 ABG Hemoglobin 9.3 gm/dl (14.0-18.0) L 01/06/18 03:14 ABG Carboxyhemoglobin 2.0 % (0.0-5.0) 01/06/18 03:14 ABG Methemoglobin 0.4 % (0.0-1.5) 01/06/18 03:14 VBG pH 7.472 (7.320-7.420) H 12/12/17 19:18 Oxyhemoglobin 94.7 % (95.0-99.0) L 01/06/18 03:14 FiO2 30 % 01/06/18 03:14 Sodium 136 mmol/L (137-145) L 01/06/18 05:30 Potassium 3.8 mmol/L (3.6-5.0) 01/06/18 05:30 Chloride 94.2 mmol/L (98-107) L 01/06/18 05:30 Carbon Dioxide 26 mmol/L (22-30) 01/06/18 05:30 Anion Gap 20 mmol/L 01/06/18 05:30 BUN 12 mg/dL (9-20) 01/06/18 05:30 Creatinine 0.4 mg/dL (0.8-1.5) L 01/06/18 05:30 Estimated GFR > 60 ml/min 01/06/18 05:30 BUN/Creatinine Ratio 30 % 01/06/18 05:30 Glucose 146 mg/dL (75-100) H 01/06/18 05:30 POC Glucose 179 (70-105) H 01/07/18 05:29 Lactic Acid 2.00 mmol/L (0.7-2.0) 12/13/17 19:38 Calcium 9.5 mg/dL (8.4-10.2) 01/06/18 05:30 Phosphorus 3.10 mg/dL (2.5-4.5) 01/06/18 05:30 Magnesium 1.90 mg/dL (1.7-2.3) 01/06/18 05:30 Total Bilirubin 0.40 mg/dL (0.1-1.2) 01/06/18 05:30 AST 30 units/L (5-40) 01/06/18 05:30 ALT 42 units/L (7-56) 01/06/18 05:30 Alkaline Phosphatase 74 units/L (35-129) 01/06/18 05:30 C-Reactive Protein 7.10 mg/dL (0.00-1.30) H 12/20/17 13:40 NT-Pro-B Natriuret Pep 409.9 pg/mL (0-450) 12/12/17 19:02 Total Protein 7.5 g/dL (6.3-8.2) 01/06/18 05:30 Albumin 3.1 g/dL (3.9-5) L 01/06/18 05:30 Albumin/Globulin Ratio 0.7 % 01/06/18 05:30 Triglycerides 1042 mg/dL (2-149) H 12/20/17 13:40 Amylase 20 units/L (27-131) L 12/13/17 13:47 Lipase 9 units/L (13-60) L 12/13/17 13:47 Urine Color [place] (Yellow) 12/15/17 17:00 Urine Turbidity Hazy (Clear) 12/15/17 17:00 Urine pH 6.0 (5.0-7.0) 12/15/17 17:00 Ur Specific [place] 1.027 (1.003-1.030) 12/15/17 17:00 Urine Protein 30 mg/dl mg/dL (Negative) 12/15/17 17:00 Urine Glucose (UA) Neg mg/dL (Negative) 12/15/17 17:00 Urine Ketones Tr mg/dL (Negative) 12/15/17 17:00 Urine Blood Lg (Negative) 12/15/17 17:00 Urine Nitrite Neg (Negative) 12/15/17 17:00 Urine Bilirubin Neg (Negative) 12/15/17 17:00 Urine Ictotest Positive (Negative) 12/12/17 20:42 Urine Urobilinogen < 2.0 mg/dL (<2.0) 12/15/17 17:00 Ur Leukocyte Esterase Tr (Negative) 12/15/17 17:00 Urine WBC (Auto) 38.0 /HPF (0.0-6.0) H 12/15/17 17:00 Urine RBC (Auto) 65.0 /HPF (0.0-6.0) 12/15/17 17:00 U Epithel Cells (Auto) < 1.0 /HPF (0-13.0) 12/12/17 20:42 Urine Bacteria (Auto) 1+ /HPF (Negative) 12/15/17 17:00 Urine Mucus 1+ /HPF 12/12/17 20:42 Vancomycin Trough 22.5 ug/mL (5.0-20.0) H 12/25/17 12:58 JERMAIN Screen Negative (Negative) 12/18/17 16:44 Proteinase 3 (PR3) Ab <1.0 AI (<1.0) 12/18/17 16:33 Myeloperoxidase Ab <1.0 AI (<1.0) 12/18/17 16:33 Complement C3 113 mg/dL (82-185) 12/18/17 16:33 Complement C4 15 mg/dL (15-53) 12/18/17 16:33 Hepatitis A IgM Ab Non-reactive (NonReactive) 12/20/17 13:40 Hep Bs Antigen Non-reactive (Negative) 12/20/17 13:40 Hep B Core IgM Ab Non-reactive (NonReactive) 12/20/17 13:40 Hepatitis C Antibody Non-reactive (NonReactive) 12/20/17 13:40 HIV 1&2 Antibody Rapid Non react (Non React) 12/20/17 13:40 HIV P24 Antigen Non react (Non React) 12/20/17 13:40 Influenza A (Rapid) Negative (Negative) 12/12/17 22:00 Influenza B (Rapid) Negative (Negative) 12/12/17 22:00 Urine Legionella Ag Not detected (Not Detected) 12/14/17 16:15 Miscellaneous Test Flexitest 1 12/14/17 16:15 Blood Type O POSITIVE 12/31/17 09:25 Antibody Screen Negative 12/31/17 09:25 Crossmatch See Detail 12/31/17 09:25
--- NOTE | 2018-01-07 09:40 | Progress Note ---
Assessment and Plan - Patient Problems (1) Acute respiratory failure Current Visit: Yes Status: Acute Plan to address problem: Pt stable. present at bedside this morning. Pt is a candidate for trach/ PEG placement. Procedure, risks, benefits, and alternatives have been discussed. We discussed in detail the risks of infection, bleeding, pain, injury to surrounding structures, and possible need for further surgeries/ procedure. We also discussed the risk for tracheo-innominate fistula. She acknowledged understanding. She wishes to speak with the patient and family before making any decisions. She said she would talk to Dr. Simpson with her decision. Interaction was unusual. She appeared defensive at times and hostile to the discussion of placing a tracheostomy tube and a PEG tube. I emphasized that I was there simply to give information and not to force her into any procedure. I offered that I was available if she had any other questions or concerns. I related my interaction with the patient's to Dr. Simpson. We are available for the procedure if the is ready to give consent. We will follow along. Time=20min Subjective Date of service: 01/07/18 Patient Reports: Positive: other (pt intubated. Unable to participate in interview. No major events o/n.) Objective Vital Signs - 12hr 01/06/18 01/06/18 01/06/18 22:00 22:23 22:28 Temperature Pulse Rate 112 H 112 H Pulse Rate [ Anterior Bilateral Throughout] Respiratory 21 31 H Rate Respiratory Rate [Anterior Bilateral Throughout] Respiratory 25 H Rate [chest] Blood Pressure 106/70 106/70 O2 Sat by Pulse 96 95 Oximetry 01/06/18 01/06/18 01/06/18 22:31 23:00 23:31 Temperature Pulse Rate 111 H 112 H 105 H Pulse Rate [ Anterior Bilateral Throughout] Respiratory 22 26 H 19 Rate Respiratory Rate [Anterior Bilateral Throughout] Respiratory Rate [chest] Blood Pressure 106/70 125/86 125/86 O2 Sat by Pulse 96 97 96 Oximetry 01/07/18 01/07/18 01/07/18 00:00 00:22 00:31 Temperature 98.8 F Pulse Rate 104 H 110 H 102 H Pulse Rate [ Anterior Bilateral Throughout] Respiratory 20 20 19 Rate Respiratory Rate [Anterior Bilateral Throughout] Respiratory Rate [chest] Blood Pressure 101/75 106/70 101/75 O2 Sat by Pulse 96 97 97 Oximetry 01/07/18 01/07/18 01/07/18 01:00 01:31 02:00 Temperature Pulse Rate 102 H 101 H 101 H Pulse Rate [ Anterior Bilateral Throughout] Respiratory 19 19 20 Rate Respiratory Rate [Anterior Bilateral Throughout] Respiratory Rate [chest] Blood Pressure 119/79 119/79 110/71 O2 Sat by Pulse 96 95 95 Oximetry 01/07/18 01/07/18 01/07/18 02:31 03:00 03:31 Temperature Pulse Rate 105 H 103 H 108 H Pulse Rate [ Anterior Bilateral Throughout] Respiratory 33 H 23 28 H Rate Respiratory Rate [Anterior Bilateral Throughout] Respiratory Rate [chest] Blood Pressure 110/71 119/79 119/79 O2 Sat by Pulse 96 96 95 Oximetry 01/07/18 01/07/18 01/07/18 04:00 04:21 04:31 Temperature 98.8 F Pulse Rate 102 H 102 H 107 H Pulse Rate [ Anterior Bilateral Throughout] Respiratory 12 26 H Rate Respiratory Rate [Anterior Bilateral Throughout] Respiratory Rate [chest] Blood Pressure 109/82 109/82 109/82 O2 Sat by Pulse 76 L 100 97 Oximetry 01/07/18 01/07/18 01/07/18 05:00 05:31 06:00 Temperature Pulse Rate 105 H 102 H 104 H Pulse Rate [ Anterior Bilateral Throughout] Respiratory 20 18 24 Rate Respiratory Rate [Anterior Bilateral Throughout] Respiratory Rate [chest] Blood Pressure 118/81 118/81 123/84 O2 Sat by Pulse 99 96 95 Oximetry 01/07/18 01/07/18 01/07/18 07:43 07:46 08:02 Temperature Pulse Rate 109 H Pulse Rate [ 108 H 110 H Anterior Bilateral Throughout] Respiratory Rate Respiratory 24 28 H Rate [Anterior Bilateral Throughout] Respiratory Rate [chest] Blood Pressure 131/88 O2 Sat by Pulse 93 Oximetry 01/07/18 01/07/18 08:04 08:08 Temperature Pulse Rate 109 H 108 H Pulse Rate [ Anterior Bilateral Throughout] Respiratory 37 H Rate Respiratory Rate [Anterior Bilateral Throughout] Respiratory Rate [chest] Blood Pressure 126/87 126/87 O2 Sat by Pulse 100 99 Oximetry - General physical appearance no distress, no pain, other (awake) - ENT other (ETT in place. Feeding tube in place. ) - Neck trachea midline - Respiratory normal expansion, normal respiratory effort - Abdomen soft - Labs 01/06/18 05:30 01/06/18 05:30
[2018-01-07] MEDS: PEPCID PO SCH ×2 (11:31→22:12)
[2018-01-07] MEDS: LANTUS SUB-Q SCH (11:31)
[2018-01-07] MEDS: POTASSIUM CHLORIDE PO SCH (11:31)
[2018-01-07] MEDS: SUBLIMAZE IV PRN ×3 (11:32→20:50)
[2018-01-07] MEDS: LOPRESSOR PO SCH ×2 (11:32→22:12)
[2018-01-07] MEDS: VITAMIN B-1 PO SCH (11:34)
[2018-01-07] MEDS: SODIUM CHLORIDE FLUSH SYRINGE 10 ML IV SCH ×2 (11:35→22:15)
--- NOTE | 2018-01-07 11:35 | Progress Note ---
Assessment and Plan 47 y/o male with acute respiratory failure thought secondary to H. Flu now with H. Flu bacteremia, sepsis and persistent fevers. 1. Acute respiratory failure. Patient re-intubated 12/28. Started with higher peeps as I feel some of the haze on his CXR is volume. Wean FiO2 first and then start weaning PEEP. Discussed the possibility of trach with . Given the patient's obesity, anxiety and possible underlying psych issues, may need a trach for safety. Continue to wean and attempt PSV trials when ready. Unfortunately, patient continues to fail PSV trials. Will need trach. On board with trach but has to revisit the feeding tube issue. 2. Follow up any new ID recs 3. Monitor I/O. Patient is producing large amounts of urine. Could represent SIADH. BP stable but may need to replace 1:1 if this continues. Subjective Date of service: 01/07/18 Principal diagnosis: ARDS,Respiratory failure,pneumonia Interval history: No acute events. upset that feeding tube was not mentioned which was my fault. Long discussion at bedside with her as to the benefit and the need for this. Objective Vital Signs - 12hr 01/07/18 01/07/18 01/07/18 00:00 00:22 00:31 Temperature 98.8 F Pulse Rate 104 H 110 H 102 H Pulse Rate [ Anterior Bilateral Throughout] Respiratory 20 20 19 Rate Respiratory Rate [Anterior Bilateral Throughout] Blood Pressure 101/75 106/70 101/75 O2 Sat by Pulse 96 97 97 Oximetry 01/07/18 01/07/18 01/07/18 01:00 01:31 02:00 Temperature Pulse Rate 102 H 101 H 101 H Pulse Rate [ Anterior Bilateral Throughout] Respiratory 19 19 20 Rate Respiratory Rate [Anterior Bilateral Throughout] Blood Pressure 119/79 119/79 110/71 O2 Sat by Pulse 96 95 95 Oximetry 01/07/18 01/07/18 01/07/18 02:31 03:00 03:31 Temperature Pulse Rate 105 H 103 H 108 H Pulse Rate [ Anterior Bilateral Throughout] Respiratory 33 H 23 28 H Rate Respiratory Rate [Anterior Bilateral Throughout] Blood Pressure 110/71 119/79 119/79 O2 Sat by Pulse 96 96 95 Oximetry 01/07/18 01/07/18 01/07/18 04:00 04:21 04:31 Temperature 98.8 F Pulse Rate 102 H 102 H 107 H Pulse Rate [ Anterior Bilateral Throughout] Respiratory 12 26 H Rate Respiratory Rate [Anterior Bilateral Throughout] Blood Pressure 109/82 109/82 109/82 O2 Sat by Pulse 76 L 100 97 Oximetry 01/07/18 01/07/18 01/07/18 05:00 05:31 06:00 Temperature Pulse Rate 105 H 102 H 104 H Pulse Rate [ Anterior Bilateral Throughout] Respiratory 20 18 24 Rate Respiratory Rate [Anterior Bilateral Throughout] Blood Pressure 118/81 118/81 123/84 O2 Sat by Pulse 99 96 95 Oximetry 01/07/18 01/07/18 01/07/18 06:31 07:00 07:31 Temperature Pulse Rate 103 H 104 H 108 H Pulse Rate [ Anterior Bilateral Throughout] Respiratory 21 24 21 Rate Respiratory Rate [Anterior Bilateral Throughout] Blood Pressure 118/81 131/88 131/88 O2 Sat by Pulse 96 95 93 Oximetry 01/07/18 01/07/18 01/07/18 07:43 07:46 08:00 Temperature Pulse Rate 109 H 110 H Pulse Rate [ 108 H Anterior Bilateral Throughout] Respiratory 38 H Rate Respiratory 24 Rate [Anterior Bilateral Throughout] Blood Pressure 131/88 126/87 O2 Sat by Pulse 93 Oximetry 01/07/18 01/07/18 01/07/18 08:02 08:04 08:08 Temperature Pulse Rate 109 H 108 H Pulse Rate [ 110 H Anterior Bilateral Throughout] Respiratory 37 H Rate Respiratory 28 H Rate [Anterior Bilateral Throughout] Blood Pressure 126/87 126/87 O2 Sat by Pulse 100 99 Oximetry 01/07/18 01/07/18 01/07/18 08:31 09:00 09:31 Temperature Pulse Rate 109 H 105 H 106 H Pulse Rate [ Anterior Bilateral Throughout] Respiratory 22 19 18 Rate Respiratory Rate [Anterior Bilateral Throughout] Blood Pressure 131/88 126/86 126/86 O2 Sat by Pulse 97 99 97 Oximetry 01/07/18 01/07/18 01/07/18 10:01 10:31 11:00 Temperature Pulse Rate 106 H 116 H 112 H Pulse Rate [ Anterior Bilateral Throughout] Respiratory 18 20 22 Rate Respiratory Rate [Anterior Bilateral Throughout] Blood Pressure 108/54 108/54 134/84 O2 Sat by Pulse 96 97 97 Oximetry Constitutional: no acute distress, alert, asleep Eyes: non-icteric ENT: oropharynx moist, other (ETT at 24. ) Neck: no JVD Effort: normal Ascultation: Right: rales, Bilateral: diminished breath sounds, wheezes (mild), rhonchi (sporadic), other (coarse BS bilaterally) Percussion: Bilateral: not dull Tactile fremitus: Bilateral: normal Cardiovascular: regular rate and rhythm Gastrointestinal: hypoactive bowel sounds, non-tender, other (abdominal obesity) Integumentary: normal Extremities: no cyanosis, no ischemia or petechiae Neurologic: non-focal exam, pupils equal and round, CN II-XII normal Psychiatric: mood appropriate CBC and BMP: 01/06/18 05:30 01/06/18 05:30 ABG, PT/INR, D-dimer: ABG POC ABG pH 7.503 (7.35-7.45) H 12/25/17 03:38 ABG pH 7.441 pH Units (7.350-7.450) 01/06/18 03:14 POC ABG pCO2 35.8 (35-45) 12/25/17 03:38 ABG pCO2 43.2 mm Hg 01/06/18 03:14 POC ABG pO2 66 (80-105) L 12/25/17 03:38 ABG pO2 84.9 mm Hg (80.0-90.0) 01/06/18 03:14 POC ABG HCO3 28.1 12/25/17 03:38 POC ABG Total CO2 29 12/25/17 03:38 POC ABG O2 Sat 95 12/25/17 03:38 ABG O2 Saturation 97.0 % (95.0-99.0) 01/06/18 03:14 PT/INR, D-dimer PT 14.9 Sec. (12.2-14.9) 12/15/17 04:05 INR 1.11 (0.87-1.13) 12/15/17 04:05 Abnormal lab findings: Abnormal Labs 12/12/17 12/12/17 12/12/17 18:57 19:02 19:02 WBC RBC Hgb Hct MCV 96 H MCH 34 H MCHC 35 H RDW Plt Count 46 L Lymph % (Auto) Eos % (Auto) [place] # Eos # Baso # Seg Neutrophils % Seg Neuts % (Manual) 77.0 H Lymphocytes % (Manual) 13.0 L Monocytes % (Manual) Eosinophils % (Manual) Nucleated RBC % Seg Neutrophils # Seg Neutrophils # Man Lymphocytes # (Manual) 0.9 L Monocytes # (Manual) Eosinophils # (Manual) APTT POC ABG pH ABG pH POC ABG pCO2 POC ABG pO2 ABG pO2 ABG HCO3 ABG O2 Saturation ABG Base Excess ABG Hemoglobin VBG pH Oxyhemoglobin Sodium Potassium Chloride Carbon Dioxide BUN Creatinine Glucose POC Glucose 321 H Lactic Acid 4.00 H* Calcium Phosphorus Total Bilirubin AST ALT C-Reactive Protein Total Protein Albumin Triglycerides Amylase Lipase Urine WBC (Auto) Vancomycin Trough Crossmatch 12/12/17 12/12/17 12/12/17 19:02 19:18 20:55 WBC RBC Hgb Hct MCV MCH MCHC RDW Plt Count Lymph % (Auto) Eos % (Auto) [place] # Eos # Baso # Seg Neutrophils % Seg Neuts % (Manual) Lymphocytes % (Manual) Monocytes % (Manual) Eosinophils % (Manual) Nucleated RBC % Seg Neutrophils # Seg Neutrophils # Man Lymphocytes # (Manual) Monocytes # (Manual) Eosinophils # (Manual) APTT POC ABG pH ABG pH POC ABG pCO2 POC ABG pO2 ABG pO2 ABG HCO3 ABG O2 Saturation ABG Base Excess ABG Hemoglobin VBG pH 7.472 H Oxyhemoglobin Sodium 124 L Potassium Chloride 80.0 L Carbon Dioxide 20 L BUN Creatinine Glucose 382 H POC Glucose 283 H Lactic Acid Calcium 8.1 L Phosphorus Total Bilirubin 4.60 H AST 93 H ALT 112 H C-Reactive Protein Total Protein Albumin 2.5 L Triglycerides Amylase Lipase Urine WBC (Auto) Vancomycin Trough Crossmatch 12/12/17 12/13/17 12/13/17 21:41 00:45 01:29 WBC RBC Hgb Hct MCV MCH MCHC RDW Plt Count Lymph % (Auto) Eos % (Auto) [place] # Eos # Baso # Seg Neutrophils % Seg Neuts % (Manual) Lymphocytes % (Manual) Monocytes % (Manual) Eosinophils % (Manual) Nucleated RBC % Seg Neutrophils # Seg Neutrophils # Man Lymphocytes # (Manual) Monocytes # (Manual) Eosinophils # (Manual) APTT POC ABG pH ABG pH POC ABG pCO2 POC ABG pO2 ABG pO2 ABG HCO3 ABG O2 Saturation ABG Base Excess ABG Hemoglobin VBG pH Oxyhemoglobin Sodium Potassium Chloride Carbon Dioxide BUN Creatinine Glucose POC Glucose Lactic Acid 4.20 H* 2.70 H* 3.30 H* Calcium Phosphorus Total Bilirubin AST ALT C-Reactive Protein Total Protein Albumin Triglycerides Amylase Lipase Urine WBC (Auto) Vancomycin Trough Crossmatch 12/13/17 12/13/17 12/13/17 02:19 03:44 05:58 WBC RBC Hgb Hct MCV 97 H MCH 34 H MCHC 35 H RDW Plt Count 41 L Lymph % (Auto) Eos % (Auto) [place] # Eos # Baso # Seg Neutrophils % Seg Neuts % (Manual) Lymphocytes % (Manual) 8.0 L Monocytes % (Manual) 8.0 H Eosinophils % (Manual) Nucleated RBC % Seg Neutrophils # Seg Neutrophils # Man Lymphocytes # (Manual) 0.6 L Monocytes # (Manual) Eosinophils # (Manual) APTT POC ABG pH 7.334 L ABG pH POC ABG pCO2 POC ABG pO2 43 L ABG pO2 ABG HCO3 ABG O2 Saturation ABG Base Excess ABG Hemoglobin VBG pH Oxyhemoglobin Sodium Potassium Chloride Carbon Dioxide BUN Creatinine Glucose POC Glucose Lactic Acid 2.60 H* Calcium Phosphorus Total Bilirubin AST ALT C-Reactive Protein Total Protein Albumin Triglycerides Amylase Lipase Urine WBC (Auto) Vancomycin Trough Crossmatch 12/13/17 12/13/17 12/13/17 05:58 05:58 05:58 WBC RBC Hgb Hct MCV MCH MCHC RDW Plt Count Lymph % (Auto) Eos % (Auto) [place] # Eos # Baso # Seg Neutrophils % Seg Neuts % (Manual) Lymphocytes % (Manual) Monocytes % (Manual) Eosinophils % (Manual) Nucleated RBC % Seg Neutrophils # Seg Neutrophils # Man Lymphocytes # (Manual) Monocytes # (Manual) Eosinophils # (Manual) APTT POC ABG pH ABG pH POC ABG pCO2 POC ABG pO2 ABG pO2 ABG HCO3 ABG O2 Saturation ABG Base Excess ABG Hemoglobin VBG pH Oxyhemoglobin Sodium 132 L D Potassium Chloride 90.0 L Carbon Dioxide 20 L BUN Creatinine Glucose 346 H POC Glucose 298 H Lactic Acid 4.50 H* Calcium 8.2 L Phosphorus Total Bilirubin AST ALT C-Reactive Protein Total Protein Albumin Triglycerides Amylase Lipase Urine WBC (Auto) Vancomycin Trough Crossmatch 12/13/17 12/13/17 12/13/17 06:27 09:42 11:47 WBC RBC Hgb Hct MCV MCH MCHC RDW Plt Count Lymph % (Auto) Eos % (Auto) [place] # Eos # Baso # Seg Neutrophils % Seg Neuts % (Manual) Lymphocytes % (Manual) Monocytes % (Manual) Eosinophils % (Manual) Nucleated RBC % Seg Neutrophils # Seg Neutrophils # Man Lymphocytes # (Manual) Monocytes # (Manual) Eosinophils # (Manual) APTT POC ABG pH 7.267 L 7.298 L ABG pH POC ABG pCO2 50.4 H 51.3 H POC ABG pO2 47 L 43 L ABG pO2 ABG HCO3 ABG O2 Saturation ABG Base Excess ABG Hemoglobin VBG pH Oxyhemoglobin Sodium Potassium Chloride Carbon Dioxide BUN Creatinine Glucose POC Glucose 376 H Lactic Acid Calcium Phosphorus Total Bilirubin AST ALT C-Reactive Protein Total Protein Albumin Triglycerides Amylase Lipase Urine WBC (Auto) Vancomycin Trough Crossmatch 12/13/17 12/13/17 12/13/17 12:03 13:47 13:47 WBC RBC Hgb Hct MCV MCH MCHC RDW Plt Count Lymph % (Auto) Eos % (Auto) [place] # Eos # Baso # Seg Neutrophils % Seg Neuts % (Manual) Lymphocytes % (Manual) Monocytes % (Manual) Eosinophils % (Manual) Nucleated RBC % Seg Neutrophils # Seg Neutrophils # Man Lymphocytes # (Manual) Monocytes # (Manual) Eosinophils # (Manual) APTT POC ABG pH 7.264 L ABG pH POC ABG pCO2 54.9 H POC ABG pO2 55 L ABG pO2 ABG HCO3 ABG O2 Saturation ABG Base Excess ABG Hemoglobin VBG pH Oxyhemoglobin Sodium Potassium Chloride Carbon Dioxide BUN Creatinine Glucose POC Glucose Lactic Acid 2.80 H* Calcium Phosphorus Total Bilirubin AST ALT C-Reactive Protein Total Protein Albumin Triglycerides Amylase 20 L Lipase 9 L Urine WBC (Auto) Vancomycin Trough Crossmatch 12/13/17 12/13/17 12/13/17 15:36 17:39 21:47 WBC RBC Hgb Hct MCV MCH MCHC RDW Plt Count Lymph % (Auto) Eos % (Auto) [place] # Eos # Baso # Seg Neutrophils % Seg Neuts % (Manual) Lymphocytes % (Manual) Monocytes % (Manual) Eosinophils % (Manual) Nucleated RBC % Seg Neutrophils # Seg Neutrophils # Man Lymphocytes # (Manual) Monocytes # (Manual) Eosinophils # (Manual) APTT POC ABG pH 7.229 L 7.225 L ABG pH POC ABG pCO2 60.9 H 66.3 H POC ABG pO2 42 L 41 L ABG pO2 ABG HCO3 ABG O2 Saturation ABG Base Excess ABG Hemoglobin VBG pH Oxyhemoglobin Sodium Potassium Chloride Carbon Dioxide BUN Creatinine Glucose POC Glucose 289 H Lactic Acid Calcium Phosphorus Total Bilirubin AST ALT C-Reactive Protein Total Protein Albumin Triglycerides Amylase Lipase Urine WBC (Auto) Vancomycin Trough Crossmatch 12/13/17 12/14/17 12/14/17 22:19 02:03 05:16 WBC RBC Hgb Hct MCV MCH MCHC RDW Plt Count Lymph % (Auto) Eos % (Auto) [place] # Eos # Baso # Seg Neutrophils % Seg Neuts % (Manual) Lymphocytes % (Manual) Monocytes % (Manual) Eosinophils % (Manual) Nucleated RBC % Seg Neutrophils # Seg Neutrophils # Man Lymphocytes # (Manual) Monocytes # (Manual) Eosinophils # (Manual) APTT POC ABG pH 7.247 L ABG pH POC ABG pCO2 61.2 H POC ABG pO2 53 L ABG pO2 ABG HCO3 ABG O2 Saturation ABG Base Excess ABG Hemoglobin VBG pH Oxyhemoglobin Sodium Potassium Chloride Carbon Dioxide BUN Creatinine Glucose POC Glucose 274 H 295 H Lactic Acid Calcium Phosphorus Total Bilirubin AST ALT C-Reactive Protein Total Protein Albumin Triglycerides Amylase Lipase Urine WBC (Auto) Vancomycin Trough Crossmatch 12/14/17 12/14/17 12/14/17 05:32 12:04 16:22 WBC RBC Hgb Hct MCV MCH MCHC RDW Plt Count Lymph % (Auto) Eos % (Auto) [place] # Eos # Baso # Seg Neutrophils % Seg Neuts % (Manual) Lymphocytes % (Manual) Monocytes % (Manual) Eosinophils % (Manual) Nucleated RBC % Seg Neutrophils # Seg Neutrophils # Man Lymphocytes # (Manual) Monocytes # (Manual) Eosinophils # (Manual) APTT POC ABG pH ABG pH POC ABG pCO2 POC ABG pO2 ABG pO2 ABG HCO3 ABG O2 Saturation ABG Base Excess ABG Hemoglobin VBG pH Oxyhemoglobin Sodium Potassium Chloride Carbon Dioxide BUN Creatinine Glucose POC Glucose 230 H 241 H 231 H Lactic Acid Calcium Phosphorus Total Bilirubin AST ALT C-Reactive Protein Total Protein Albumin Triglycerides Amylase Lipase Urine WBC (Auto) Vancomycin Trough Crossmatch 12/14/17 12/15/17 12/15/17 21:29 02:29 03:25 WBC RBC Hgb Hct MCV MCH MCHC RDW Plt Count Lymph % (Auto) Eos % (Auto) [place] # Eos # Baso # Seg Neutrophils % Seg Neuts % (Manual) Lymphocytes % (Manual) Monocytes % (Manual) Eosinophils % (Manual) Nucleated RBC % Seg Neutrophils # Seg Neutrophils # Man Lymphocytes # (Manual) Monocytes # (Manual) Eosinophils # (Manual) APTT POC ABG pH 7.330 L ABG pH POC ABG pCO2 55.3 H POC ABG pO2 59 L ABG pO2 ABG HCO3 ABG O2 Saturation ABG Base Excess ABG Hemoglobin VBG pH Oxyhemoglobin Sodium Potassium Chloride Carbon Dioxide BUN Creatinine Glucose POC Glucose 258 H 246 H Lactic Acid Calcium Phosphorus Total Bilirubin AST ALT C-Reactive Protein Total Protein Albumin Triglycerides Amylase Lipase Urine WBC (Auto) Vancomycin Trough Crossmatch 12/15/17 12/15/17 12/15/17 04:05 04:05 04:05 WBC 15.0 H RBC 3.40 L Hgb 11.3 L D Hct 33.8 L D MCV 100 H MCH 33 H MCHC RDW Plt Count 48 L Lymph % (Auto) Eos % (Auto) [place] # Eos # Baso # Seg Neutrophils % Seg Neuts % (Manual) Lymphocytes % (Manual) 3.0 L Monocytes % (Manual) Eosinophils % (Manual) Nucleated RBC % 2.0 H Seg Neutrophils # Seg Neutrophils # Man Lymphocytes # (Manual) 0.5 L Monocytes # (Manual) 0.9 H Eosinophils # (Manual) APTT 20.9 L POC ABG pH ABG pH POC ABG pCO2 POC ABG pO2 ABG pO2 ABG HCO3 ABG O2 Saturation ABG Base Excess ABG Hemoglobin VBG pH Oxyhemoglobin Sodium Potassium Chloride Carbon Dioxide BUN 27 H Creatinine Glucose 258 H POC Glucose Lactic Acid Calcium 8.1 L Phosphorus Total Bilirubin AST ALT C-Reactive Protein Total Protein Albumin Triglycerides Amylase Lipase Urine WBC (Auto) Vancomycin Trough Crossmatch 12/15/17 12/15/17 12/15/17 05:32 11:17 14:59 WBC RBC Hgb Hct MCV MCH MCHC RDW Plt Count Lymph % (Auto) Eos % (Auto) [place] # Eos # Baso # Seg Neutrophils % Seg Neuts % (Manual) Lymphocytes % (Manual) Monocytes % (Manual) Eosinophils % (Manual) Nucleated RBC % Seg Neutrophils # Seg Neutrophils # Man Lymphocytes # (Manual) Monocytes # (Manual) Eosinophils # (Manual) APTT POC ABG pH ABG pH POC ABG pCO2 POC ABG pO2 ABG pO2 ABG HCO3 ABG O2 Saturation ABG Base Excess ABG Hemoglobin VBG pH Oxyhemoglobin Sodium Potassium Chloride Carbon Dioxide BUN Creatinine Glucose POC Glucose 247 H 268 H 233 H Lactic Acid Calcium Phosphorus Total Bilirubin AST ALT C-Reactive Protein Total Protein Albumin Triglycerides Amylase Lipase Urine WBC (Auto) Vancomycin Trough Crossmatch 12/15/17 12/15/17 12/15/17 17:00 18:59 21:37 WBC RBC Hgb Hct MCV MCH MCHC RDW Plt Count Lymph % (Auto) Eos % (Auto) [place] # Eos # Baso # Seg Neutrophils % Seg Neuts % (Manual) Lymphocytes % (Manual) Monocytes % (Manual) Eosinophils % (Manual) Nucleated RBC % Seg Neutrophils # Seg Neutrophils # Man Lymphocytes # (Manual) Monocytes # (Manual) Eosinophils # (Manual) APTT POC ABG pH ABG pH POC ABG pCO2 POC ABG pO2 ABG pO2 ABG HCO3 ABG O2 Saturation ABG Base Excess ABG Hemoglobin VBG pH Oxyhemoglobin Sodium Potassium Chloride Carbon Dioxide BUN Creatinine Glucose POC Glucose 195 H 208 H Lactic Acid Calcium Phosphorus Total Bilirubin AST ALT C-Reactive Protein Total Protein Albumin Triglycerides Amylase Lipase Urine WBC (Auto) 38.0 H Vancomycin Trough Crossmatch 12/16/17 12/16/17 12/16/17 03:17 03:33 04:18 WBC 16.4 H RBC 3.50 L Hgb 11.3 L Hct 35.4 L MCV 101 H MCH MCHC RDW Plt Count 54 L Lymph % (Auto) Eos % (Auto) [place] # Eos # Baso # Seg Neutrophils % Seg Neuts % (Manual) Lymphocytes % (Manual) Monocytes % (Manual) Eosinophils % (Manual) Nucleated RBC % Seg Neutrophils # Seg Neutrophils # Man Lymphocytes # (Manual) Monocytes # (Manual) Eosinophils # (Manual) APTT POC ABG pH ABG pH POC ABG pCO2 47.7 H POC ABG pO2 ABG pO2 ABG HCO3 ABG O2 Saturation ABG Base Excess ABG Hemoglobin VBG pH Oxyhemoglobin Sodium Potassium Chloride Carbon Dioxide BUN Creatinine Glucose POC Glucose 227 H Lactic Acid Calcium Phosphorus Total Bilirubin AST ALT C-Reactive Protein Total Protein Albumin Triglycerides Amylase Lipase Urine WBC (Auto) Vancomycin Trough Crossmatch 12/16/17 12/16/17 12/16/17 04:18 05:08 10:01 WBC RBC Hgb Hct MCV MCH MCHC RDW Plt Count Lymph % (Auto) Eos % (Auto) [place] # Eos # Baso # Seg Neutrophils % Seg Neuts % (Manual) Lymphocytes % (Manual) Monocytes % (Manual) Eosinophils % (Manual) Nucleated RBC % Seg Neutrophils # Seg Neutrophils # Man Lymphocytes # (Manual) Monocytes # (Manual) Eosinophils # (Manual) APTT POC ABG pH ABG pH POC ABG pCO2 POC ABG pO2 ABG pO2 ABG HCO3 ABG O2 Saturation ABG Base Excess ABG Hemoglobin VBG pH Oxyhemoglobin Sodium 147 H Potassium Chloride 107.4 H Carbon Dioxide BUN 28 H Creatinine Glucose 240 H POC Glucose 227 H 190 H Lactic Acid Calcium 8.3 L Phosphorus Total Bilirubin AST ALT C-Reactive Protein Total Protein Albumin Triglycerides Amylase Lipase Urine WBC (Auto) Vancomycin Trough Crossmatch 12/16/17 12/16/17 12/16/17 14:15 17:51 21:14 WBC RBC Hgb Hct MCV MCH MCHC RDW Plt Count Lymph % (Auto) Eos % (Auto) [place] # Eos # Baso # Seg Neutrophils % Seg Neuts % (Manual) Lymphocytes % (Manual) Monocytes % (Manual) Eosinophils % (Manual) Nucleated RBC % Seg Neutrophils # Seg Neutrophils # Man Lymphocytes # (Manual) Monocytes # (Manual) Eosinophils # (Manual) APTT POC ABG pH ABG pH POC ABG pCO2 POC ABG pO2 ABG pO2 ABG HCO3 ABG O2 Saturation ABG Base Excess ABG Hemoglobin VBG pH Oxyhemoglobin Sodium Potassium Chloride Carbon Dioxide BUN Creatinine Glucose POC Glucose 279 H 272 H 260 H Lactic Acid Calcium Phosphorus Total Bilirubin AST ALT C-Reactive Protein Total Protein Albumin Triglycerides Amylase Lipase Urine WBC (Auto) Vancomycin Trough Crossmatch 12/17/17 12/17/17 12/17/17 02:41 04:28 04:28 WBC 19.1 H RBC 3.50 L Hgb 11.4 L Hct 35.3 L MCV 101 H MCH 33 H MCHC RDW Plt Count 65 L Lymph % (Auto) Eos % (Auto) [place] # Eos # Baso # Seg Neutrophils % Seg Neuts % (Manual) Lymphocytes % (Manual) Monocytes % (Manual) Eosinophils % (Manual) Nucleated RBC % Seg Neutrophils # Seg Neutrophils # Man Lymphocytes # (Manual) Monocytes # (Manual) Eosinophils # (Manual) APTT POC ABG pH ABG pH POC ABG pCO2 POC ABG pO2 ABG pO2 ABG HCO3 ABG O2 Saturation ABG Base Excess ABG Hemoglobin VBG pH Oxyhemoglobin Sodium 153 H Potassium Chloride 111.2 H Carbon Dioxide 31 H BUN 28 H Creatinine Glucose 248 H POC Glucose 300 H Lactic Acid Calcium Phosphorus Total Bilirubin AST ALT C-Reactive Protein Total Protein Albumin Triglycerides Amylase Lipase Urine WBC (Auto) Vancomycin Trough Crossmatch 12/17/17 12/17/17 12/17/17 05:15 05:38 10:16 WBC RBC Hgb Hct MCV MCH MCHC RDW Plt Count Lymph % (Auto) Eos % (Auto) [place] # Eos # Baso # Seg Neutrophils % Seg Neuts % (Manual) Lymphocytes % (Manual) Monocytes % (Manual) Eosinophils % (Manual) Nucleated RBC % Seg Neutrophils # Seg Neutrophils # Man Lymphocytes # (Manual) Monocytes # (Manual) Eosinophils # (Manual) APTT POC ABG pH ABG pH POC ABG pCO2 50.3 H POC ABG pO2 120 H ABG pO2 ABG HCO3 ABG O2 Saturation ABG Base Excess ABG Hemoglobin VBG pH Oxyhemoglobin Sodium Potassium Chloride Carbon Dioxide BUN Creatinine Glucose POC Glucose 231 H 196 H Lactic Acid Calcium Phosphorus Total Bilirubin AST ALT C-Reactive Protein Total Protein Albumin Triglycerides Amylase Lipase Urine WBC (Auto) Vancomycin Trough Crossmatch 12/17/17 12/17/17 12/17/17 14:22 18:14 21:35 WBC RBC Hgb Hct MCV MCH MCHC RDW Plt Count Lymph % (Auto) Eos % (Auto) [place] # Eos # Baso # Seg Neutrophils % Seg Neuts % (Manual) Lymphocytes % (Manual) Monocytes % (Manual) Eosinophils % (Manual) Nucleated RBC % Seg Neutrophils # Seg Neutrophils # Man Lymphocytes # (Manual) Monocytes # (Manual) Eosinophils # (Manual) APTT POC ABG pH ABG pH POC ABG pCO2 POC ABG pO2 ABG pO2 ABG HCO3 ABG O2 Saturation ABG Base Excess ABG Hemoglobin VBG pH Oxyhemoglobin Sodium Potassium Chloride Carbon Dioxide BUN Creatinine Glucose POC Glucose 234 H 215 H 159 H Lactic Acid Calcium Phosphorus Total Bilirubin AST ALT C-Reactive Protein Total Protein Albumin Triglycerides Amylase Lipase Urine WBC (Auto) Vancomycin Trough Crossmatch 12/18/17 12/18/17 12/18/17 00:53 02:58 06:03 WBC RBC Hgb Hct MCV MCH MCHC RDW Plt Count Lymph % (Auto) Eos % (Auto) [place] # Eos # Baso # Seg Neutrophils % Seg Neuts % (Manual) Lymphocytes % (Manual) Monocytes % (Manual) Eosinophils % (Manual) Nucleated RBC % Seg Neutrophils # Seg Neutrophils # Man Lymphocytes # (Manual) Monocytes # (Manual) Eosinophils # (Manual) APTT POC ABG pH ABG pH POC ABG pCO2 56.4 H POC ABG pO2 46 L ABG pO2 ABG HCO3 ABG O2 Saturation ABG Base Excess ABG Hemoglobin VBG pH Oxyhemoglobin Sodium Potassium Chloride Carbon Dioxide BUN Creatinine Glucose POC Glucose 176 H 143 H Lactic Acid Calcium Phosphorus Total Bilirubin AST ALT C-Reactive Protein Total Protein Albumin Triglycerides Amylase Lipase Urine WBC (Auto) Vancomycin Trough Crossmatch 12/18/17 12/18/17 12/18/17 07:59 09:20 09:20 WBC 27.4 H RBC 3.57 L Hgb 11.4 L Hct MCV 101 H MCH MCHC RDW Plt Count 64 L Lymph % (Auto) Eos % (Auto) [place] # Eos # Baso # Seg Neutrophils % Seg Neuts % (Manual) Lymphocytes % (Manual) Monocytes % (Manual) Eosinophils % (Manual) Nucleated RBC % Seg Neutrophils # Seg Neutrophils # Man Lymphocytes # (Manual) Monocytes # (Manual) Eosinophils # (Manual) APTT POC ABG pH ABG pH POC ABG pCO2 POC ABG pO2 ABG pO2 ABG HCO3 ABG O2 Saturation ABG Base Excess ABG Hemoglobin VBG pH Oxyhemoglobin Sodium 152 H Potassium Chloride 107.9 H Carbon Dioxide 34 H BUN 23 H Creatinine 0.7 L Glucose 181 H POC Glucose 197 H Lactic Acid Calcium Phosphorus Total Bilirubin AST ALT C-Reactive Protein Total Protein Albumin Triglycerides Amylase Lipase Urine WBC (Auto) Vancomycin Trough Crossmatch 12/18/17 12/18/17 12/18/17 10:22 15:03 18:15 WBC RBC Hgb Hct MCV MCH MCHC RDW Plt Count Lymph % (Auto) Eos % (Auto) [place] # Eos # Baso # Seg Neutrophils % Seg Neuts % (Manual) Lymphocytes % (Manual) Monocytes % (Manual) Eosinophils % (Manual) Nucleated RBC % Seg Neutrophils # Seg Neutrophils # Man Lymphocytes # (Manual) Monocytes # (Manual) Eosinophils # (Manual) APTT POC ABG pH ABG pH POC ABG pCO2 POC ABG pO2 ABG pO2 ABG HCO3 ABG O2 Saturation ABG Base Excess ABG Hemoglobin VBG pH Oxyhemoglobin Sodium Potassium Chloride Carbon Dioxide BUN Creatinine Glucose POC Glucose 195 H 225 H 238 H Lactic Acid Calcium Phosphorus Total Bilirubin AST ALT C-Reactive Protein Total Protein Albumin Triglycerides Amylase Lipase Urine WBC (Auto) Vancomycin Trough Crossmatch 12/18/17 12/18/17 12/19/17 18:29 21:53 00:18 WBC RBC Hgb Hct MCV MCH MCHC RDW Plt Count Lymph % (Auto) Eos % (Auto) [place] # Eos # Baso # Seg Neutrophils % Seg Neuts % (Manual) Lymphocytes % (Manual) Monocytes % (Manual) Eosinophils % (Manual) Nucleated RBC % Seg Neutrophils # Seg Neutrophils # Man Lymphocytes # (Manual) Monocytes # (Manual) Eosinophils # (Manual) APTT POC ABG pH 7.476 H ABG pH POC ABG pCO2 50.4 H POC ABG pO2 158 H ABG pO2 ABG HCO3 ABG O2 Saturation ABG Base Excess ABG Hemoglobin VBG pH Oxyhemoglobin Sodium Potassium Chloride Carbon Dioxide BUN Creatinine Glucose POC Glucose 231 H 263 H Lactic Acid Calcium Phosphorus Total Bilirubin AST ALT C-Reactive Protein Total Protein Albumin Triglycerides Amylase Lipase Urine WBC (Auto) Vancomycin Trough Crossmatch 12/19/17 12/19/17 12/19/17 02:09 04:07 04:07 WBC 25.9 H RBC 3.25 L Hgb 10.6 L Hct 32.8 L MCV 101 H MCH 33 H MCHC RDW Plt Count 67 L Lymph % (Auto) Eos % (Auto) [place] # Eos # Baso # Seg Neutrophils % Seg Neuts % (Manual) Lymphocytes % (Manual) 4.0 L Monocytes % (Manual) Eosinophils % (Manual) Nucleated RBC % Seg Neutrophils # Seg Neutrophils # Man 14.8 H Lymphocytes # (Manual) 1.0 L Monocytes # (Manual) Eosinophils # (Manual) APTT POC ABG pH ABG pH POC ABG pCO2 POC ABG pO2 ABG pO2 ABG HCO3 ABG O2 Saturation ABG Base Excess ABG Hemoglobin VBG pH Oxyhemoglobin Sodium 148 H Potassium Chloride Carbon Dioxide BUN 31 H Creatinine Glucose 314 H POC Glucose 300 H Lactic Acid Calcium 8.1 L Phosphorus Total Bilirubin AST ALT C-Reactive Protein Total Protein Albumin Triglycerides Amylase Lipase Urine WBC (Auto) Vancomycin Trough Crossmatch 12/19/17 12/19/17 12/19/17 05:15 05:41 07:57 WBC RBC Hgb Hct MCV MCH MCHC RDW Plt Count Lymph % (Auto) Eos % (Auto) [place] # Eos # Baso # Seg Neutrophils % Seg Neuts % (Manual) Lymphocytes % (Manual) Monocytes % (Manual) Eosinophils % (Manual) Nucleated RBC % Seg Neutrophils # Seg Neutrophils # Man Lymphocytes # (Manual) Monocytes # (Manual) Eosinophils # (Manual) APTT POC ABG pH 7.507 H ABG pH POC ABG pCO2 POC ABG pO2 ABG pO2 ABG HCO3 ABG O2 Saturation ABG Base Excess ABG Hemoglobin VBG pH Oxyhemoglobin Sodium Potassium Chloride Carbon Dioxide BUN Creatinine Glucose POC Glucose 331 H 307 H Lactic Acid Calcium Phosphorus Total Bilirubin AST ALT C-Reactive Protein Total Protein Albumin Triglycerides Amylase Lipase Urine WBC (Auto) Vancomycin Trough Crossmatch 12/19/17 12/19/17 12/19/17 10:21 14:48 17:59 WBC RBC Hgb Hct MCV MCH MCHC RDW Plt Count Lymph % (Auto) Eos % (Auto) [place] # Eos # Baso # Seg Neutrophils % Seg Neuts % (Manual) Lymphocytes % (Manual) Monocytes % (Manual) Eosinophils % (Manual) Nucleated RBC % Seg Neutrophils # Seg Neutrophils # Man Lymphocytes # (Manual) Monocytes # (Manual) Eosinophils # (Manual) APTT POC ABG pH ABG pH POC ABG pCO2 POC ABG pO2 ABG pO2 ABG HCO3 ABG O2 Saturation ABG Base Excess ABG Hemoglobin VBG pH Oxyhemoglobin Sodium Potassium Chloride Carbon Dioxide BUN Creatinine Glucose POC Glucose 358 H 327 H 355 H Lactic Acid Calcium Phosphorus Total Bilirubin AST ALT C-Reactive Protein Total Protein Albumin Triglycerides Amylase Lipase Urine WBC (Auto) Vancomycin Trough Crossmatch 12/19/17 12/20/17 12/20/17 21:38 02:21 03:42 WBC RBC Hgb Hct MCV MCH MCHC RDW Plt Count Lymph % (Auto) Eos % (Auto) [place] # Eos # Baso # Seg Neutrophils % Seg Neuts % (Manual) Lymphocytes % (Manual) Monocytes % (Manual) Eosinophils % (Manual) Nucleated RBC % Seg Neutrophils # Seg Neutrophils # Man Lymphocytes # (Manual) Monocytes # (Manual) Eosinophils # (Manual) APTT POC ABG pH 7.494 H ABG pH POC ABG pCO2 POC ABG pO2 ABG pO2 ABG HCO3 ABG O2 Saturation ABG Base Excess ABG Hemoglobin VBG pH Oxyhemoglobin Sodium Potassium Chloride Carbon Dioxide BUN Creatinine Glucose POC Glucose 329 H 354 H Lactic Acid Calcium Phosphorus Total Bilirubin AST ALT C-Reactive Protein Total Protein Albumin Triglycerides Amylase Lipase Urine WBC (Auto) Vancomycin Trough Crossmatch 12/20/17 12/20/17 12/20/17 04:08 04:08 04:08 WBC 22.7 H RBC 3.26 L Hgb 10.6 L Hct 32.9 L MCV 101 H MCH 33 H MCHC RDW Plt Count 78 L Lymph % (Auto) Eos % (Auto) [place] # Eos # Baso # Seg Neutrophils % Seg Neuts % (Manual) 80.0 H Lymphocytes % (Manual) 6.0 L Monocytes % (Manual) Eosinophils % (Manual) Nucleated RBC % Seg Neutrophils # Seg Neutrophils # Man 18.2 H Lymphocytes # (Manual) Monocytes # (Manual) Eosinophils # (Manual) APTT POC ABG pH ABG pH POC ABG pCO2 POC ABG pO2 ABG pO2 ABG HCO3 ABG O2 Saturation ABG Base Excess ABG Hemoglobin VBG pH Oxyhemoglobin Sodium Potassium Chloride Carbon Dioxide 31 H BUN 30 H Creatinine 0.6 L Glucose 365 H POC Glucose Lactic Acid Calcium Phosphorus Total Bilirubin AST ALT C-Reactive Protein Total Protein Albumin Triglycerides 981 H Amylase Lipase Urine WBC (Auto) Vancomycin Trough Crossmatch 12/20/17 12/20/17 12/20/17 05:15 10:47 13:40 WBC RBC Hgb Hct MCV MCH MCHC RDW Plt Count Lymph % (Auto) Eos % (Auto) [place] # Eos # Baso # Seg Neutrophils % Seg Neuts % (Manual) Lymphocytes % (Manual) Monocytes % (Manual) Eosinophils % (Manual) Nucleated RBC % Seg Neutrophils # Seg Neutrophils # Man Lymphocytes # (Manual) Monocytes # (Manual) Eosinophils # (Manual) APTT POC ABG pH ABG pH POC ABG pCO2 POC ABG pO2 ABG pO2 ABG HCO3 ABG O2 Saturation ABG Base Excess ABG Hemoglobin VBG pH Oxyhemoglobin Sodium Potassium Chloride Carbon Dioxide BUN Creatinine Glucose POC Glucose 342 H 330 H Lactic Acid Calcium Phosphorus Total Bilirubin AST ALT C-Reactive Protein 7.10 H Total Protein Albumin Triglycerides Amylase Lipase Urine WBC (Auto) Vancomycin Trough Crossmatch 12/20/17 12/20/17 12/20/17 13:40 14:52 16:55 WBC RBC Hgb Hct MCV MCH MCHC RDW Plt Count Lymph % (Auto) Eos % (Auto) [place] # Eos # Baso # Seg Neutrophils % Seg Neuts % (Manual) Lymphocytes % (Manual) Monocytes % (Manual) Eosinophils % (Manual) Nucleated RBC % Seg Neutrophils # Seg Neutrophils # Man Lymphocytes # (Manual) Monocytes # (Manual) Eosinophils # (Manual) APTT POC ABG pH 7.484 H ABG pH POC ABG pCO2 POC ABG pO2 ABG pO2 ABG HCO3 ABG O2 Saturation ABG Base Excess ABG Hemoglobin VBG pH Oxyhemoglobin Sodium Potassium Chloride Carbon Dioxide BUN Creatinine Glucose POC Glucose 293 H Lactic Acid Calcium Phosphorus Total Bilirubin AST ALT C-Reactive Protein Total Protein Albumin Triglycerides 1042 H Amylase Lipase Urine WBC (Auto) Vancomycin Trough Crossmatch 12/20/17 12/20/17 12/21/17 18:00 21:58 02:05 WBC RBC Hgb Hct MCV MCH MCHC RDW Plt Count Lymph % (Auto) Eos % (Auto) [place] # Eos # Baso # Seg Neutrophils % Seg Neuts % (Manual) Lymphocytes % (Manual) Monocytes % (Manual) Eosinophils % (Manual) Nucleated RBC % Seg Neutrophils # Seg Neutrophils # Man Lymphocytes # (Manual) Monocytes # (Manual) Eosinophils # (Manual) APTT POC ABG pH ABG pH POC ABG pCO2 POC ABG pO2 ABG pO2 ABG HCO3 ABG O2 Saturation ABG Base Excess ABG Hemoglobin VBG pH Oxyhemoglobin Sodium Potassium Chloride Carbon Dioxide BUN Creatinine Glucose POC Glucose 268 H 272 H 229 H Lactic Acid Calcium Phosphorus Total Bilirubin AST ALT C-Reactive Protein Total Protein Albumin Triglycerides Amylase Lipase Urine WBC (Auto) Vancomycin Trough Crossmatch 12/21/17 12/21/17 12/21/17 03:59 06:23 08:57 WBC RBC Hgb Hct MCV MCH MCHC RDW Plt Count Lymph % (Auto) Eos % (Auto) [place] # Eos # Baso # Seg Neutrophils % Seg Neuts % (Manual) Lymphocytes % (Manual) Monocytes % (Manual) Eosinophils % (Manual) Nucleated RBC % Seg Neutrophils # Seg Neutrophils # Man Lymphocytes # (Manual) Monocytes # (Manual) Eosinophils # (Manual) APTT POC ABG pH 7.474 H ABG pH POC ABG pCO2 POC ABG pO2 71 L ABG pO2 ABG HCO3 ABG O2 Saturation ABG Base Excess ABG Hemoglobin VBG pH Oxyhemoglobin Sodium Potassium Chloride Carbon Dioxide BUN Creatinine Glucose POC Glucose 182 H 217 H Lactic Acid Calcium Phosphorus Total Bilirubin AST ALT C-Reactive Protein Total Protein Albumin Triglycerides Amylase Lipase Urine WBC (Auto) Vancomycin Trough Crossmatch 12/21/17 12/21/17 12/21/17 13:59 18:00 21:20 WBC RBC Hgb Hct MCV MCH MCHC RDW Plt Count Lymph % (Auto) Eos % (Auto) [place] # Eos # Baso # Seg Neutrophils % Seg Neuts % (Manual) Lymphocytes % (Manual) Monocytes % (Manual) Eosinophils % (Manual) Nucleated RBC % Seg Neutrophils # Seg Neutrophils # Man Lymphocytes # (Manual) Monocytes # (Manual) Eosinophils # (Manual) APTT POC ABG pH ABG pH POC ABG pCO2 POC ABG pO2 ABG pO2 ABG HCO3 ABG O2 Saturation ABG Base Excess ABG Hemoglobin VBG pH Oxyhemoglobin Sodium Potassium Chloride Carbon Dioxide BUN Creatinine Glucose POC Glucose 185 H 176 H 187 H Lactic Acid Calcium Phosphorus Total Bilirubin AST ALT C-Reactive Protein Total Protein Albumin Triglycerides Amylase Lipase Urine WBC (Auto) Vancomycin Trough Crossmatch 12/21/17 12/22/17 12/22/17 23:48 04:39 05:30 WBC RBC Hgb Hct MCV MCH MCHC RDW Plt Count Lymph % (Auto) Eos % (Auto) [place] # Eos # Baso # Seg Neutrophils % Seg Neuts % (Manual) Lymphocytes % (Manual) Monocytes % (Manual) Eosinophils % (Manual) Nucleated RBC % Seg Neutrophils # Seg Neutrophils # Man Lymphocytes # (Manual) Monocytes # (Manual) Eosinophils # (Manual) APTT POC ABG pH 7.528 H ABG pH POC ABG pCO2 POC ABG pO2 63 L ABG pO2 ABG HCO3 ABG O2 Saturation ABG Base Excess ABG Hemoglobin VBG pH Oxyhemoglobin Sodium Potassium Chloride Carbon Dioxide BUN Creatinine Glucose POC Glucose 126 H 117 H Lactic Acid Calcium Phosphorus Total Bilirubin AST ALT C-Reactive Protein Total Protein Albumin Triglycerides Amylase Lipase Urine WBC (Auto) Vancomycin Trough Crossmatch 12/22/17 12/22/17 12/22/17 09:12 10:34 10:34 WBC 29.5 H RBC 3.44 L Hgb 11.2 L Hct 34.2 L MCV 99 H MCH 33 H MCHC RDW 13.1 L Plt Count 97 L Lymph % (Auto) Eos % (Auto) [place] # Eos # Baso # Seg Neutrophils % Seg Neuts % (Manual) 88.0 H Lymphocytes % (Manual) 5.0 L Monocytes % (Manual) Eosinophils % (Manual) Nucleated RBC % Seg Neutrophils # Seg Neutrophils # Man 26.0 H Lymphocytes # (Manual) Monocytes # (Manual) Eosinophils # (Manual) APTT POC ABG pH ABG pH POC ABG pCO2 POC ABG pO2 ABG pO2 ABG HCO3 ABG O2 Saturation ABG Base Excess ABG Hemoglobin VBG pH Oxyhemoglobin Sodium 146 H Potassium 3.1 L Chloride Carbon Dioxide BUN 25 H Creatinine 0.7 L Glucose 146 H POC Glucose 168 H Lactic Acid Calcium 8.1 L Phosphorus Total Bilirubin AST ALT C-Reactive Protein Total Protein Albumin Triglycerides Amylase Lipase Urine WBC (Auto) Vancomycin Trough Crossmatch 12/22/17 12/22/17 12/22/17 14:51 17:21 21:43 WBC RBC Hgb Hct MCV MCH MCHC RDW Plt Count Lymph % (Auto) Eos % (Auto) [place] # Eos # Baso # Seg Neutrophils % Seg Neuts % (Manual) Lymphocytes % (Manual) Monocytes % (Manual) Eosinophils % (Manual) Nucleated RBC % Seg Neutrophils # Seg Neutrophils # Man Lymphocytes # (Manual) Monocytes # (Manual) Eosinophils # (Manual) APTT POC ABG pH ABG pH POC ABG pCO2 POC ABG pO2 ABG pO2 ABG HCO3 ABG O2 Saturation ABG Base Excess ABG Hemoglobin VBG pH Oxyhemoglobin Sodium Potassium Chloride Carbon Dioxide BUN Creatinine Glucose POC Glucose 125 H 110 H 153 H Lactic Acid Calcium Phosphorus Total Bilirubin AST ALT C-Reactive Protein Total Protein Albumin Triglycerides Amylase Lipase Urine WBC (Auto) Vancomycin Trough Crossmatch 12/23/17 12/23/17 12/23/17 04:33 05:28 09:25 WBC 31.4 H RBC 3.05 L Hgb 9.8 L Hct 30.2 L MCV 99 H MCH MCHC RDW 12.9 L Plt Count 101 L Lymph % (Auto) Eos % (Auto) [place] # Eos # Baso # Seg Neutrophils % Seg Neuts % (Manual) 97 H Lymphocytes % (Manual) 2 L Monocytes % (Manual) Eosinophils % (Manual) Nucleated RBC % Seg Neutrophils # Seg Neutrophils # Man 31.1 H Lymphocytes # (Manual) 0.5 L Monocytes # (Manual) Eosinophils # (Manual) APTT POC ABG pH 7.573 H ABG pH POC ABG pCO2 31.0 L POC ABG pO2 63 L ABG pO2 ABG HCO3 ABG O2 Saturation ABG Base Excess ABG Hemoglobin VBG pH Oxyhemoglobin Sodium Potassium Chloride Carbon Dioxide BUN Creatinine Glucose POC Glucose 124 H Lactic Acid Calcium Phosphorus Total Bilirubin AST ALT C-Reactive Protein Total Protein Albumin Triglycerides Amylase Lipase Urine WBC (Auto) Vancomycin Trough Crossmatch 12/23/17 12/23/17 12/23/17 09:25 10:08 14:20 WBC RBC Hgb Hct MCV MCH MCHC RDW Plt Count Lymph % (Auto) Eos % (Auto) [place] # Eos # Baso # Seg Neutrophils % Seg Neuts % (Manual) Lymphocytes % (Manual) Monocytes % (Manual) Eosinophils % (Manual) Nucleated RBC % Seg Neutrophils # Seg Neutrophils # Man Lymphocytes # (Manual) Monocytes # (Manual) Eosinophils # (Manual) APTT POC ABG pH ABG pH POC ABG pCO2 POC ABG pO2 ABG pO2 ABG HCO3 ABG O2 Saturation ABG Base Excess ABG Hemoglobin VBG pH Oxyhemoglobin Sodium Potassium 3.1 L Chloride Carbon Dioxide BUN Creatinine 0.6 L Glucose 169 H POC Glucose 171 H 211 H Lactic Acid Calcium 7.9 L Phosphorus Total Bilirubin AST ALT C-Reactive Protein Total Protein Albumin Triglycerides Amylase Lipase Urine WBC (Auto) Vancomycin Trough Crossmatch 12/23/17 12/23/17 12/24/17 18:59 21:49 01:47 WBC RBC Hgb Hct MCV MCH MCHC RDW Plt Count Lymph % (Auto) Eos % (Auto) [place] # Eos # Baso # Seg Neutrophils % Seg Neuts % (Manual) Lymphocytes % (Manual) Monocytes % (Manual) Eosinophils % (Manual) Nucleated RBC % Seg Neutrophils # Seg Neutrophils # Man Lymphocytes # (Manual) Monocytes # (Manual) Eosinophils # (Manual) APTT POC ABG pH ABG pH POC ABG pCO2 POC ABG pO2 ABG pO2 ABG HCO3 ABG O2 Saturation ABG Base Excess ABG Hemoglobin VBG pH Oxyhemoglobin Sodium Potassium Chloride Carbon Dioxide BUN Creatinine Glucose POC Glucose 175 H 146 H 143 H Lactic Acid Calcium Phosphorus Total Bilirubin AST ALT C-Reactive Protein Total Protein Albumin Triglycerides Amylase Lipase Urine WBC (Auto) Vancomycin Trough Crossmatch 12/24/17 12/24/17 12/24/17 05:40 10:12 13:12 WBC RBC Hgb Hct MCV MCH MCHC RDW Plt Count Lymph % (Auto) Eos % (Auto) [place] # Eos # Baso # Seg Neutrophils % Seg Neuts % (Manual) Lymphocytes % (Manual) Monocytes % (Manual) Eosinophils % (Manual) Nucleated RBC % Seg Neutrophils # Seg Neutrophils # Man Lymphocytes # (Manual) Monocytes # (Manual) Eosinophils # (Manual) APTT POC ABG pH 7.558 H ABG pH POC ABG pCO2 27.6 L POC ABG pO2 71 L ABG pO2 ABG HCO3 ABG O2 Saturation ABG Base Excess ABG Hemoglobin VBG pH Oxyhemoglobin Sodium Potassium Chloride Carbon Dioxide BUN Creatinine Glucose POC Glucose 118 H 111 H Lactic Acid Calcium Phosphorus Total Bilirubin AST ALT C-Reactive Protein Total Protein Albumin Triglycerides Amylase Lipase Urine WBC (Auto) Vancomycin Trough Crossmatch 12/24/17 12/24/17 12/24/17 16:26 20:44 21:49 WBC RBC Hgb Hct MCV MCH MCHC RDW Plt Count Lymph % (Auto) Eos % (Auto) [place] # Eos # Baso # Seg Neutrophils % Seg Neuts % (Manual) Lymphocytes % (Manual) Monocytes % (Manual) Eosinophils % (Manual) Nucleated RBC % Seg Neutrophils # Seg Neutrophils # Man Lymphocytes # (Manual) Monocytes # (Manual) Eosinophils # (Manual) APTT POC ABG pH ABG pH POC ABG pCO2 POC ABG pO2 ABG pO2 ABG HCO3 ABG O2 Saturation ABG Base Excess ABG Hemoglobin VBG pH Oxyhemoglobin Sodium Potassium Chloride Carbon Dioxide BUN Creatinine Glucose POC Glucose 113 H 124 H 115 H Lactic Acid Calcium Phosphorus Total Bilirubin AST ALT C-Reactive Protein Total Protein Albumin Triglycerides Amylase Lipase Urine WBC (Auto) Vancomycin Trough Crossmatch 12/24/17 12/25/17 12/25/17 Unknown 02:26 03:38 WBC RBC Hgb Hct MCV MCH MCHC RDW Plt Count Lymph % (Auto) Eos % (Auto) [place] # Eos # Baso # Seg Neutrophils % Seg Neuts % (Manual) Lymphocytes % (Manual) Monocytes % (Manual) Eosinophils % (Manual) Nucleated RBC % Seg Neutrophils # Seg Neutrophils # Man Lymphocytes # (Manual) Monocytes # (Manual) Eosinophils # (Manual) APTT POC ABG pH 7.503 H ABG pH POC ABG pCO2 POC ABG pO2 66 L ABG pO2 ABG HCO3 ABG O2 Saturation ABG Base Excess ABG Hemoglobin VBG pH Oxyhemoglobin Sodium Potassium 3.0 L Chloride Carbon Dioxide BUN Creatinine 0.5 L Glucose 166 H POC Glucose 106 H Lactic Acid Calcium 7.8 L Phosphorus Total Bilirubin AST ALT C-Reactive Protein Total Protein Albumin Triglycerides Amylase Lipase Urine WBC (Auto) Vancomycin Trough Crossmatch 12/25/17 12/25/17 12/25/17 04:58 12:58 15:06 WBC RBC Hgb Hct MCV MCH MCHC RDW Plt Count Lymph % (Auto) Eos % (Auto) [place] # Eos # Baso # Seg Neutrophils % Seg Neuts % (Manual) Lymphocytes % (Manual) Monocytes % (Manual) Eosinophils % (Manual) Nucleated RBC % Seg Neutrophils # Seg Neutrophils # Man Lymphocytes # (Manual) Monocytes # (Manual) Eosinophils # (Manual) APTT POC ABG pH ABG pH POC ABG pCO2 POC ABG pO2 ABG pO2 ABG HCO3 ABG O2 Saturation ABG Base Excess ABG Hemoglobin VBG pH Oxyhemoglobin Sodium Potassium Chloride Carbon Dioxide BUN Creatinine Glucose POC Glucose 113 H 118 H Lactic Acid Calcium Phosphorus Total Bilirubin AST ALT C-Reactive Protein Total Protein Albumin Triglycerides Amylase Lipase Urine WBC (Auto) Vancomycin Trough 22.5 H Crossmatch 12/25/17 12/25/17 12/25/17 17:59 21:33 Unknown WBC 20.5 H RBC 2.75 L Hgb 9.1 L Hct 27.1 L MCV 99 H MCH 33 H MCHC RDW Plt Count 126 L Lymph % (Auto) Eos % (Auto) [place] # Eos # Baso # Seg Neutrophils % Seg Neuts % (Manual) 89.0 H Lymphocytes % (Manual) 6.0 L Monocytes % (Manual) Eosinophils % (Manual) Nucleated RBC % Seg Neutrophils # Seg Neutrophils # Man 18.2 H Lymphocytes # (Manual) Monocytes # (Manual) Eosinophils # (Manual) APTT POC ABG pH ABG pH POC ABG pCO2 POC ABG pO2 ABG pO2 ABG HCO3 ABG O2 Saturation ABG Base Excess ABG Hemoglobin VBG pH Oxyhemoglobin Sodium Potassium Chloride Carbon Dioxide BUN Creatinine Glucose POC Glucose 145 H 167 H Lactic Acid Calcium Phosphorus Total Bilirubin AST ALT C-Reactive Protein Total Protein Albumin Triglycerides Amylase Lipase Urine WBC (Auto) Vancomycin Trough Crossmatch 12/25/17 12/26/17 12/26/17 Unknown 02:26 05:29 WBC RBC Hgb Hct MCV MCH MCHC RDW Plt Count Lymph % (Auto) Eos % (Auto) [place] # Eos # Baso # Seg Neutrophils % Seg Neuts % (Manual) Lymphocytes % (Manual) Monocytes % (Manual) Eosinophils % (Manual) Nucleated RBC % Seg Neutrophils # Seg Neutrophils # Man Lymphocytes # (Manual) Monocytes # (Manual) Eosinophils # (Manual) APTT POC ABG pH ABG pH POC ABG pCO2 POC ABG pO2 ABG pO2 ABG HCO3 ABG O2 Saturation ABG Base Excess ABG Hemoglobin VBG pH Oxyhemoglobin Sodium Potassium 2.8 L* Chloride Carbon Dioxide BUN Creatinine 0.6 L Glucose POC Glucose 167 H 216 H Lactic Acid Calcium 7.4 L Phosphorus Total Bilirubin AST ALT C-Reactive Protein Total Protein Albumin Triglycerides Amylase Lipase Urine WBC (Auto) Vancomycin Trough Crossmatch 12/26/17 12/26/17 12/26/17 10:21 14:30 18:35 WBC RBC Hgb Hct MCV MCH MCHC RDW Plt Count Lymph % (Auto) Eos % (Auto) [place] # Eos # Baso # Seg Neutrophils % Seg Neuts % (Manual) Lymphocytes % (Manual) Monocytes % (Manual) Eosinophils % (Manual) Nucleated RBC % Seg Neutrophils # Seg Neutrophils # Man Lymphocytes # (Manual) Monocytes # (Manual) Eosinophils # (Manual) APTT POC ABG pH ABG pH POC ABG pCO2 POC ABG pO2 ABG pO2 ABG HCO3 ABG O2 Saturation ABG Base Excess ABG Hemoglobin VBG pH Oxyhemoglobin Sodium Potassium Chloride Carbon Dioxide BUN Creatinine Glucose POC Glucose 164 H 157 H 146 H Lactic Acid Calcium Phosphorus Total Bilirubin AST ALT C-Reactive Protein Total Protein Albumin Triglycerides Amylase Lipase Urine WBC (Auto) Vancomycin Trough Crossmatch 12/26/17 12/26/17 12/27/17 21:21 Unknown 01:54 WBC RBC Hgb Hct MCV MCH MCHC RDW Plt Count Lymph % (Auto) Eos % (Auto) [place] # Eos # Baso # Seg Neutrophils % Seg Neuts % (Manual) Lymphocytes % (Manual) Monocytes % (Manual) Eosinophils % (Manual) Nucleated RBC % Seg Neutrophils # Seg Neutrophils # Man Lymphocytes # (Manual) Monocytes # (Manual) Eosinophils # (Manual) APTT POC ABG pH ABG pH POC ABG pCO2 POC ABG pO2 ABG pO2 ABG HCO3 ABG O2 Saturation ABG Base Excess ABG Hemoglobin VBG pH Oxyhemoglobin Sodium Potassium 3.0 L Chloride Carbon Dioxide BUN Creatinine 0.5 L Glucose 166 H POC Glucose 132 H 157 H Lactic Acid Calcium 7.8 L Phosphorus Total Bilirubin AST ALT C-Reactive Protein Total Protein Albumin Triglycerides Amylase Lipase Urine WBC (Auto) Vancomycin Trough Crossmatch 12/27/17 12/27/17 12/27/17 05:20 05:20 05:44 WBC 26.4 H RBC 2.83 L Hgb 9.3 L Hct 27.6 L MCV 98 H MCH 33 H MCHC RDW Plt Count Lymph % (Auto) Eos % (Auto) [place] # Eos # Baso # Seg Neutrophils % Seg Neuts % (Manual) 85.0 H Lymphocytes % (Manual) 5.0 L Monocytes % (Manual) Eosinophils % (Manual) Nucleated RBC % Seg Neutrophils # Seg Neutrophils # Man 22.4 H Lymphocytes # (Manual) Monocytes # (Manual) Eosinophils # (Manual) 0.5 H APTT POC ABG pH ABG pH POC ABG pCO2 POC ABG pO2 ABG pO2 ABG HCO3 ABG O2 Saturation ABG Base Excess ABG Hemoglobin VBG pH Oxyhemoglobin Sodium Potassium 2.3 L* D Chloride Carbon Dioxide BUN 7 L Creatinine 0.6 L Glucose 123 H POC Glucose 128 H Lactic Acid Calcium 8.1 L Phosphorus Total Bilirubin AST ALT C-Reactive Protein Total Protein Albumin Triglycerides Amylase Lipase Urine WBC (Auto) Vancomycin Trough Crossmatch 12/27/17 12/27/17 12/27/17 10:04 14:44 15:30 WBC RBC Hgb Hct MCV MCH MCHC RDW Plt Count Lymph % (Auto) Eos % (Auto) [place] # Eos # Baso # Seg Neutrophils % Seg Neuts % (Manual) Lymphocytes % (Manual) Monocytes % (Manual) Eosinophils % (Manual) Nucleated RBC % Seg Neutrophils # Seg Neutrophils # Man Lymphocytes # (Manual) Monocytes # (Manual) Eosinophils # (Manual) APTT POC ABG pH ABG pH POC ABG pCO2 POC ABG pO2 ABG pO2 ABG HCO3 ABG O2 Saturation ABG Base Excess ABG Hemoglobin VBG pH Oxyhemoglobin Sodium Potassium 3.1 L D Chloride Carbon Dioxide BUN Creatinine Glucose POC Glucose 115 H 128 H Lactic Acid Calcium Phosphorus Total Bilirubin AST ALT C-Reactive Protein Total Protein Albumin Triglycerides Amylase Lipase Urine WBC (Auto) Vancomycin Trough Crossmatch 12/28/17 12/28/17 12/28/17 00:39 02:13 05:17 WBC RBC Hgb Hct MCV MCH MCHC RDW Plt Count Lymph % (Auto) Eos % (Auto) [place] # Eos # Baso # Seg Neutrophils % Seg Neuts % (Manual) Lymphocytes % (Manual) Monocytes % (Manual) Eosinophils % (Manual) Nucleated RBC % Seg Neutrophils # Seg Neutrophils # Man Lymphocytes # (Manual) Monocytes # (Manual) Eosinophils # (Manual) APTT POC ABG pH ABG pH 7.497 H POC ABG pCO2 POC ABG pO2 ABG pO2 71.4 L ABG HCO3 29.9 H ABG O2 Saturation ABG Base Excess 6.2 H ABG Hemoglobin 7.9 L VBG pH Oxyhemoglobin 94.9 L Sodium Potassium Chloride Carbon Dioxide BUN Creatinine Glucose POC Glucose 112 H 108 H Lactic Acid Calcium Phosphorus Total Bilirubin AST ALT C-Reactive Protein Total Protein Albumin Triglycerides Amylase Lipase Urine WBC (Auto) Vancomycin Trough Crossmatch 12/28/17 12/28/17 12/28/17 08:47 08:47 09:10 WBC 28.1 H RBC 2.76 L Hgb 9.1 L Hct 27.0 L MCV 98 H MCH 33 H MCHC RDW Plt Count Lymph % (Auto) Eos % (Auto) [place] # Eos # Baso # Seg Neutrophils % Seg Neuts % (Manual) Lymphocytes % (Manual) Monocytes % (Manual) Eosinophils % (Manual) Nucleated RBC % Seg Neutrophils # Seg Neutrophils # Man Lymphocytes # (Manual) Monocytes # (Manual) Eosinophils # (Manual) APTT POC ABG pH ABG pH POC ABG pCO2 POC ABG pO2 ABG pO2 ABG HCO3 ABG O2 Saturation ABG Base Excess ABG Hemoglobin VBG pH Oxyhemoglobin Sodium Potassium 2.2 L* D Chloride Carbon Dioxide BUN 5 L Creatinine 0.5 L Glucose 106 H POC Glucose Lactic Acid Calcium 8.3 L Phosphorus 2.20 L Total Bilirubin AST ALT C-Reactive Protein Total Protein Albumin Triglycerides Amylase Lipase Urine WBC (Auto) Vancomycin Trough Crossmatch 12/28/17 12/28/17 12/28/17 13:28 14:22 18:48 WBC RBC Hgb Hct MCV MCH MCHC RDW Plt Count Lymph % (Auto) Eos % (Auto) [place] # Eos # Baso # Seg Neutrophils % Seg Neuts % (Manual) Lymphocytes % (Manual) Monocytes % (Manual) Eosinophils % (Manual) Nucleated RBC % Seg Neutrophils # Seg Neutrophils # Man Lymphocytes # (Manual) Monocytes # (Manual) Eosinophils # (Manual) APTT POC ABG pH ABG pH 7.476 H POC ABG pCO2 POC ABG pO2 ABG pO2 167.7 H ABG HCO3 30.9 H ABG O2 Saturation 99.1 H ABG Base Excess 6.7 H ABG Hemoglobin 8.5 L VBG pH Oxyhemoglobin Sodium Potassium Chloride Carbon Dioxide BUN Creatinine Glucose POC Glucose 141 H 129 H Lactic Acid Calcium Phosphorus Total Bilirubin AST ALT C-Reactive Protein Total Protein Albumin Triglycerides Amylase Lipase Urine WBC (Auto) Vancomycin Trough Crossmatch 12/28/17 12/29/17 12/29/17 21:22 02:45 05:11 WBC RBC Hgb Hct MCV MCH MCHC RDW Plt Count Lymph % (Auto) Eos % (Auto) [place] # Eos # Baso # Seg Neutrophils % Seg Neuts % (Manual) Lymphocytes % (Manual) Monocytes % (Manual) Eosinophils % (Manual) Nucleated RBC % Seg Neutrophils # Seg Neutrophils # Man Lymphocytes # (Manual) Monocytes # (Manual) Eosinophils # (Manual) APTT POC ABG pH ABG pH POC ABG pCO2 POC ABG pO2 ABG pO2 ABG HCO3 ABG O2 Saturation ABG Base Excess ABG Hemoglobin VBG pH Oxyhemoglobin Sodium Potassium Chloride Carbon Dioxide BUN Creatinine Glucose POC Glucose 123 H 138 H 138 H Lactic Acid Calcium Phosphorus Total Bilirubin AST ALT C-Reactive Protein Total Protein Albumin Triglycerides Amylase Lipase Urine WBC (Auto) Vancomycin Trough Crossmatch 12/29/17 12/29/17 12/29/17 05:50 08:04 08:04 WBC 20.8 H RBC 2.26 L Hgb 7.5 L Hct 22.7 L MCV 100 H MCH 33 H MCHC RDW Plt Count Lymph % (Auto) Eos % (Auto) [place] # Eos # Baso # Seg Neutrophils % Seg Neuts % (Manual) 93.0 H Lymphocytes % (Manual) 2.0 L Monocytes % (Manual) Eosinophils % (Manual) Nucleated RBC % Seg Neutrophils # Seg Neutrophils # Man 19.3 H Lymphocytes # (Manual) 0.4 L Monocytes # (Manual) Eosinophils # (Manual) 0.7 H APTT POC ABG pH ABG pH 7.467 H POC ABG pCO2 POC ABG pO2 ABG pO2 ABG HCO3 28.2 H ABG O2 Saturation ABG Base Excess 4.0 H ABG Hemoglobin < 5.1 L VBG pH Oxyhemoglobin Sodium Potassium 3.0 L D Chloride Carbon Dioxide BUN Creatinine 0.5 L Glucose 147 H POC Glucose Lactic Acid Calcium 7.8 L Phosphorus Total Bilirubin AST ALT C-Reactive Protein Total Protein 5.6 L Albumin 2.4 L Triglycerides Amylase Lipase Urine WBC (Auto) Vancomycin Trough Crossmatch 12/29/17 12/29/17 12/29/17 08:20 10:59 14:09 WBC RBC Hgb Hct MCV MCH MCHC RDW Plt Count Lymph % (Auto) Eos % (Auto) [place] # Eos # Baso # Seg Neutrophils % Seg Neuts % (Manual) Lymphocytes % (Manual) Monocytes % (Manual) Eosinophils % (Manual) Nucleated RBC % Seg Neutrophils # Seg Neutrophils # Man Lymphocytes # (Manual) Monocytes # (Manual) Eosinophils # (Manual) APTT POC ABG pH ABG pH POC ABG pCO2 POC ABG pO2 ABG pO2 ABG HCO3 ABG O2 Saturation ABG Base Excess ABG Hemoglobin VBG pH Oxyhemoglobin Sodium Potassium Chloride Carbon Dioxide BUN Creatinine Glucose POC Glucose 153 H 186 H 183 H Lactic Acid Calcium Phosphorus Total Bilirubin AST ALT C-Reactive Protein Total Protein Albumin Triglycerides Amylase Lipase Urine WBC (Auto) Vancomycin Trough Crossmatch 12/29/17 12/29/17 12/29/17 18:03 22:05 22:56 WBC RBC Hgb Hct MCV MCH MCHC RDW Plt Count Lymph % (Auto) Eos % (Auto) [place] # Eos # Baso # Seg Neutrophils % Seg Neuts % (Manual) Lymphocytes % (Manual) Monocytes % (Manual) Eosinophils % (Manual) Nucleated RBC % Seg Neutrophils # Seg Neutrophils # Man Lymphocytes # (Manual) Monocytes # (Manual) Eosinophils # (Manual) APTT POC ABG pH ABG pH POC ABG pCO2 POC ABG pO2 ABG pO2 ABG HCO3 ABG O2 Saturation ABG Base Excess ABG Hemoglobin VBG pH Oxyhemoglobin Sodium Potassium Chloride Carbon Dioxide BUN Creatinine Glucose POC Glucose 159 H 146 H 179 H Lactic Acid Calcium Phosphorus Total Bilirubin AST ALT C-Reactive Protein Total Protein Albumin Triglycerides Amylase Lipase Urine WBC (Auto) Vancomycin Trough Crossmatch 12/30/17 12/30/17 12/30/17 02:03 04:50 04:50 WBC 18.3 H RBC 2.22 L Hgb 7.4 L Hct 23.0 L MCV 104 H MCH 33 H MCHC RDW Plt Count 137 L Lymph % (Auto) 9.0 L Eos % (Auto) [place] # Eos # 0.5 H Baso # Seg Neutrophils % 84.9 H Seg Neuts % (Manual) Lymphocytes % (Manual) Monocytes % (Manual) Eosinophils % (Manual) Nucleated RBC % Seg Neutrophils # 15.6 H Seg Neutrophils # Man Lymphocytes # (Manual) Monocytes # (Manual) Eosinophils # (Manual) APTT POC ABG pH ABG pH POC ABG pCO2 POC ABG pO2 ABG pO2 ABG HCO3 ABG O2 Saturation ABG Base Excess ABG Hemoglobin VBG pH Oxyhemoglobin Sodium 147 H Potassium 3.1 L D Chloride 107.5 H Carbon Dioxide BUN Creatinine 0.5 L Glucose 120 H POC Glucose 118 H Lactic Acid Calcium 7.4 L Phosphorus Total Bilirubin AST ALT C-Reactive Protein Total Protein Albumin Triglycerides Amylase Lipase Urine WBC (Auto) Vancomycin Trough Crossmatch 12/30/17 12/30/17 12/30/17 05:04 13:53 17:33 WBC RBC Hgb Hct MCV MCH MCHC RDW Plt Count Lymph % (Auto) Eos % (Auto) [place] # Eos # Baso # Seg Neutrophils % Seg Neuts % (Manual) Lymphocytes % (Manual) Monocytes % (Manual) Eosinophils % (Manual) Nucleated RBC % Seg Neutrophils # Seg Neutrophils # Man Lymphocytes # (Manual) Monocytes # (Manual) Eosinophils # (Manual) APTT POC ABG pH ABG pH POC ABG pCO2 POC ABG pO2 ABG pO2 ABG HCO3 ABG O2 Saturation ABG Base Excess ABG Hemoglobin VBG pH Oxyhemoglobin Sodium Potassium Chloride Carbon Dioxide BUN Creatinine Glucose POC Glucose 150 H 113 H 145 H Lactic Acid Calcium Phosphorus Total Bilirubin AST ALT C-Reactive Protein Total Protein Albumin Triglycerides Amylase Lipase Urine WBC (Auto) Vancomycin Trough Crossmatch 12/31/17 12/31/17 12/31/17 01:54 03:15 03:15 WBC 17.1 H RBC 2.08 L Hgb 6.9 L Hct 20.6 L MCV 99 H MCH 33 H MCHC RDW 13.1 L Plt Count Lymph % (Auto) 10.5 L Eos % (Auto) [place] # Eos # 0.6 H Baso # Seg Neutrophils % 82.3 H Seg Neuts % (Manual) Lymphocytes % (Manual) Monocytes % (Manual) Eosinophils % (Manual) Nucleated RBC % Seg Neutrophils # 14.0 H Seg Neutrophils # Man Lymphocytes # (Manual) Monocytes # (Manual) Eosinophils # (Manual) APTT POC ABG pH ABG pH POC ABG pCO2 POC ABG pO2 ABG pO2 ABG HCO3 ABG O2 Saturation ABG Base Excess ABG Hemoglobin VBG pH Oxyhemoglobin Sodium Potassium 3.5 L Chloride Carbon Dioxide BUN Creatinine 0.6 L Glucose POC Glucose 69 L Lactic Acid Calcium 7.8 L Phosphorus Total Bilirubin AST ALT C-Reactive Protein Total Protein Albumin Triglycerides Amylase Lipase Urine WBC (Auto) Vancomycin Trough Crossmatch 12/31/17 12/31/17 12/31/17 05:15 09:25 10:17 WBC RBC Hgb Hct MCV MCH MCHC RDW Plt Count Lymph % (Auto) Eos % (Auto) [place] # Eos # Baso # Seg Neutrophils % Seg Neuts % (Manual) Lymphocytes % (Manual) Monocytes % (Manual) Eosinophils % (Manual) Nucleated RBC % Seg Neutrophils # Seg Neutrophils # Man Lymphocytes # (Manual) Monocytes # (Manual) Eosinophils # (Manual) APTT POC ABG pH ABG pH 7.516 H POC ABG pCO2 POC ABG pO2 ABG pO2 69.2 L ABG HCO3 28.7 H ABG O2 Saturation ABG Base Excess 5.3 H ABG Hemoglobin 6.6 L VBG pH Oxyhemoglobin 93.8 L Sodium Potassium Chloride Carbon Dioxide BUN Creatinine Glucose POC Glucose 143 H Lactic Acid Calcium Phosphorus Total Bilirubin AST ALT C-Reactive Protein Total Protein Albumin Triglycerides Amylase Lipase Urine WBC (Auto) Vancomycin Trough Crossmatch See Detail 12/31/17 12/31/17 12/31/17 14:20 18:30 21:40 WBC RBC Hgb Hct MCV MCH MCHC RDW Plt Count Lymph % (Auto) Eos % (Auto) [place] # Eos # Baso # Seg Neutrophils % Seg Neuts % (Manual) Lymphocytes % (Manual) Monocytes % (Manual) Eosinophils % (Manual) Nucleated RBC % Seg Neutrophils # Seg Neutrophils # Man Lymphocytes # (Manual) Monocytes # (Manual) Eosinophils # (Manual) APTT POC ABG pH ABG pH POC ABG pCO2 POC ABG pO2 ABG pO2 ABG HCO3 ABG O2 Saturation ABG Base Excess ABG Hemoglobin VBG pH Oxyhemoglobin Sodium Potassium Chloride Carbon Dioxide BUN Creatinine Glucose POC Glucose 175 H 137 H 182 H Lactic Acid Calcium Phosphorus Total Bilirubin AST ALT C-Reactive Protein Total Protein Albumin Triglycerides Amylase Lipase Urine WBC (Auto) Vancomycin Trough Crossmatch 12/31/17 01/01/18 01/01/18 23:34 02:09 04:00 WBC 16.4 H RBC 2.41 L Hgb 7.8 L Hct 23.6 L MCV 98 H MCH 33 H MCHC RDW Plt Count Lymph % (Auto) 10.7 L Eos % (Auto) [place] # Eos # 0.7 H Baso # 0.2 H Seg Neutrophils % 79.0 H Seg Neuts % (Manual) Lymphocytes % (Manual) Monocytes % (Manual) Eosinophils % (Manual) Nucleated RBC % Seg Neutrophils # 12.9 H Seg Neutrophils # Man Lymphocytes # (Manual) Monocytes # (Manual) Eosinophils # (Manual) APTT POC ABG pH ABG pH POC ABG pCO2 POC ABG pO2 ABG pO2 ABG HCO3 ABG O2 Saturation ABG Base Excess ABG Hemoglobin VBG pH Oxyhemoglobin Sodium Potassium Chloride Carbon Dioxide BUN Creatinine Glucose POC Glucose 132 H 117 H Lactic Acid Calcium Phosphorus Total Bilirubin AST ALT C-Reactive Protein Total Protein Albumin Triglycerides Amylase Lipase Urine WBC (Auto) Vancomycin Trough Crossmatch 01/01/18 01/01/18 01/01/18 04:00 04:04 05:32 WBC RBC Hgb Hct MCV MCH MCHC RDW Plt Count Lymph % (Auto) Eos % (Auto) [place] # Eos # Baso # Seg Neutrophils % Seg Neuts % (Manual) Lymphocytes % (Manual) Monocytes % (Manual) Eosinophils % (Manual) Nucleated RBC % Seg Neutrophils # Seg Neutrophils # Man Lymphocytes # (Manual) Monocytes # (Manual) Eosinophils # (Manual) APTT POC ABG pH ABG pH 7.458 H POC ABG pCO2 POC ABG pO2 ABG pO2 67.5 L ABG HCO3 27.5 H ABG O2 Saturation 94.4 L ABG Base Excess 3.4 H ABG Hemoglobin 7.8 L VBG pH Oxyhemoglobin 92.1 L Sodium Potassium Chloride Carbon Dioxide BUN Creatinine 0.4 L Glucose 129 H POC Glucose 129 H Lactic Acid Calcium 7.9 L Phosphorus Total Bilirubin AST ALT C-Reactive Protein Total Protein Albumin Triglycerides Amylase Lipase Urine WBC (Auto) Vancomycin Trough Crossmatch 01/01/18 01/01/18 01/01/18 10:10 12:38 17:27 WBC RBC Hgb Hct MCV MCH MCHC RDW Plt Count Lymph % (Auto) Eos % (Auto) [place] # Eos # Baso # Seg Neutrophils % Seg Neuts % (Manual) Lymphocytes % (Manual) Monocytes % (Manual) Eosinophils % (Manual) Nucleated RBC % Seg Neutrophils # Seg Neutrophils # Man Lymphocytes # (Manual) Monocytes # (Manual) Eosinophils # (Manual) APTT POC ABG pH ABG pH POC ABG pCO2 POC ABG pO2 ABG pO2 ABG HCO3 ABG O2 Saturation ABG Base Excess ABG Hemoglobin VBG pH Oxyhemoglobin Sodium Potassium Chloride Carbon Dioxide BUN Creatinine Glucose POC Glucose 155 H 179 H 152 H Lactic Acid Calcium Phosphorus Total Bilirubin AST ALT C-Reactive Protein Total Protein Albumin Triglycerides Amylase Lipase Urine WBC (Auto) Vancomycin Trough Crossmatch 01/01/18 01/02/18 01/02/18 21:36 01:42 04:10 WBC 12.1 H RBC 2.29 L Hgb 7.5 L Hct 22.7 L MCV 99 H MCH 33 H MCHC RDW Plt Count Lymph % (Auto) Eos % (Auto) 5.5 H [place] # 0.9 H Eos # 0.7 H Baso # Seg Neutrophils % Seg Neuts % (Manual) Lymphocytes % (Manual) Monocytes % (Manual) Eosinophils % (Manual) Nucleated RBC % Seg Neutrophils # 8.3 H Seg Neutrophils # Man Lymphocytes # (Manual) Monocytes # (Manual) Eosinophils # (Manual) APTT POC ABG pH ABG pH POC ABG pCO2 POC ABG pO2 ABG pO2 ABG HCO3 ABG O2 Saturation ABG Base Excess ABG Hemoglobin VBG pH Oxyhemoglobin Sodium Potassium Chloride Carbon Dioxide BUN Creatinine Glucose POC Glucose 118 H 117 H Lactic Acid Calcium Phosphorus Total Bilirubin AST ALT C-Reactive Protein Total Protein Albumin Triglycerides Amylase Lipase Urine WBC (Auto) Vancomycin Trough Crossmatch 01/02/18 01/02/18 01/02/18 04:10 04:57 13:42 WBC RBC Hgb Hct MCV MCH MCHC RDW Plt Count Lymph % (Auto) Eos % (Auto) [place] # Eos # Baso # Seg Neutrophils % Seg Neuts % (Manual) Lymphocytes % (Manual) Monocytes % (Manual) Eosinophils % (Manual) Nucleated RBC % Seg Neutrophils # Seg Neutrophils # Man Lymphocytes # (Manual) Monocytes # (Manual) Eosinophils # (Manual) APTT POC ABG pH ABG pH POC ABG pCO2 POC ABG pO2 ABG pO2 ABG HCO3 ABG O2 Saturation ABG Base Excess ABG Hemoglobin VBG pH Oxyhemoglobin Sodium Potassium Chloride 97.0 L Carbon Dioxide BUN Creatinine 0.4 L Glucose POC Glucose 107 H 133 H Lactic Acid Calcium 8.1 L Phosphorus Total Bilirubin AST ALT C-Reactive Protein Total Protein 6.0 L Albumin 2.5 L Triglycerides Amylase Lipase Urine WBC (Auto) Vancomycin Trough Crossmatch 01/02/18 01/02/18 01/03/18 17:33 22:11 02:18 WBC RBC Hgb Hct MCV MCH MCHC RDW Plt Count Lymph % (Auto) Eos % (Auto) [place] # Eos # Baso # Seg Neutrophils % Seg Neuts % (Manual) Lymphocytes % (Manual) Monocytes % (Manual) Eosinophils % (Manual) Nucleated RBC % Seg Neutrophils # Seg Neutrophils # Man Lymphocytes # (Manual) Monocytes # (Manual) Eosinophils # (Manual) APTT POC ABG pH ABG pH POC ABG pCO2 POC ABG pO2 ABG pO2 ABG HCO3 ABG O2 Saturation ABG Base Excess ABG Hemoglobin VBG pH Oxyhemoglobin Sodium Potassium Chloride Carbon Dioxide BUN Creatinine Glucose POC Glucose 146 H 171 H 162 H Lactic Acid Calcium Phosphorus Total Bilirubin AST ALT C-Reactive Protein Total Protein Albumin Triglycerides Amylase Lipase Urine WBC (Auto) Vancomycin Trough Crossmatch 01/03/18 01/03/18 01/03/18 04:56 05:21 17:20 WBC RBC Hgb Hct MCV MCH MCHC RDW Plt Count Lymph % (Auto) Eos % (Auto) [place] # Eos # Baso # Seg Neutrophils % Seg Neuts % (Manual) Lymphocytes % (Manual) Monocytes % (Manual) Eosinophils % (Manual) Nucleated RBC % Seg Neutrophils # Seg Neutrophils # Man Lymphocytes # (Manual) Monocytes # (Manual) Eosinophils # (Manual) APTT POC ABG pH ABG pH POC ABG pCO2 POC ABG pO2 ABG pO2 79.5 L ABG HCO3 31.4 H ABG O2 Saturation ABG Base Excess 6.3 H ABG Hemoglobin 10.4 L VBG pH Oxyhemoglobin 94.2 L Sodium Potassium Chloride Carbon Dioxide BUN Creatinine Glucose POC Glucose 163 H 153 H Lactic Acid Calcium Phosphorus Total Bilirubin AST ALT C-Reactive Protein Total Protein Albumin Triglycerides Amylase Lipase Urine WBC (Auto) Vancomycin Trough Crossmatch 01/03/18 01/03/18 01/04/18 17:50 19:52 00:40 WBC RBC Hgb Hct MCV MCH MCHC RDW Plt Count Lymph % (Auto) Eos % (Auto) [place] # Eos # Baso # Seg Neutrophils % Seg Neuts % (Manual) Lymphocytes % (Manual) Monocytes % (Manual) Eosinophils % (Manual) Nucleated RBC % Seg Neutrophils # Seg Neutrophils # Man Lymphocytes # (Manual) Monocytes # (Manual) Eosinophils # (Manual) APTT POC ABG pH ABG pH POC ABG pCO2 POC ABG pO2 ABG pO2 ABG HCO3 ABG O2 Saturation ABG Base Excess ABG Hemoglobin VBG pH Oxyhemoglobin Sodium Potassium Chloride Carbon Dioxide BUN Creatinine Glucose POC Glucose 157 H 147 H 158 H Lactic Acid Calcium Phosphorus Total Bilirubin AST ALT C-Reactive Protein Total Protein Albumin Triglycerides Amylase Lipase Urine WBC (Auto) Vancomycin Trough Crossmatch 01/04/18 01/04/18 01/04/18 04:01 05:13 06:12 WBC 11.5 H RBC 2.95 L Hgb 9.8 L Hct 29.5 L D MCV 100 H MCH 33 H MCHC RDW Plt Count Lymph % (Auto) Eos % (Auto) [place] # Eos # Baso # Seg Neutrophils % Seg Neuts % (Manual) Lymphocytes % (Manual) Monocytes % (Manual) Eosinophils % (Manual) 6.0 H Nucleated RBC % Seg Neutrophils # Seg Neutrophils # Man Lymphocytes # (Manual) Monocytes # (Manual) Eosinophils # (Manual) 0.7 H APTT POC ABG pH ABG pH 7.498 H POC ABG pCO2 POC ABG pO2 ABG pO2 129.5 H ABG HCO3 30.1 H ABG O2 Saturation ABG Base Excess 6.4 H ABG Hemoglobin 9.3 L VBG pH Oxyhemoglobin Sodium Potassium Chloride Carbon Dioxide BUN Creatinine Glucose POC Glucose 163 H Lactic Acid Calcium Phosphorus Total Bilirubin AST ALT C-Reactive Protein Total Protein Albumin Triglycerides Amylase Lipase Urine WBC (Auto) Vancomycin Trough Crossmatch 01/04/18 01/04/18 01/04/18 06:12 10:55 14:29 WBC RBC Hgb Hct MCV MCH MCHC RDW Plt Count Lymph % (Auto) Eos % (Auto) [place] # Eos # Baso # Seg Neutrophils % Seg Neuts % (Manual) Lymphocytes % (Manual) Monocytes % (Manual) Eosinophils % (Manual) Nucleated RBC % Seg Neutrophils # Seg Neutrophils # Man Lymphocytes # (Manual) Monocytes # (Manual) Eosinophils # (Manual) APTT POC ABG pH ABG pH POC ABG pCO2 POC ABG pO2 ABG pO2 ABG HCO3 ABG O2 Saturation ABG Base Excess ABG Hemoglobin VBG pH Oxyhemoglobin Sodium Potassium Chloride Carbon Dioxide BUN Creatinine 0.5 L Glucose 174 H POC Glucose 187 H 144 H Lactic Acid Calcium Phosphorus Total Bilirubin AST 41 H ALT C-Reactive Protein Total Protein Albumin 2.9 L Triglycerides Amylase Lipase Urine WBC (Auto) Vancomycin Trough Crossmatch 01/04/18 01/04/18 01/05/18 17:25 21:56 01:59 WBC RBC Hgb Hct MCV MCH MCHC RDW Plt Count Lymph % (Auto) Eos % (Auto) [place] # Eos # Baso # Seg Neutrophils % Seg Neuts % (Manual) Lymphocytes % (Manual) Monocytes % (Manual) Eosinophils % (Manual) Nucleated RBC % Seg Neutrophils # Seg Neutrophils # Man Lymphocytes # (Manual) Monocytes # (Manual) Eosinophils # (Manual) APTT POC ABG pH ABG pH POC ABG pCO2 POC ABG pO2 ABG pO2 ABG HCO3 ABG O2 Saturation ABG Base Excess ABG Hemoglobin VBG pH Oxyhemoglobin Sodium Potassium Chloride Carbon Dioxide BUN Creatinine Glucose POC Glucose 156 H 171 H 162 H Lactic Acid Calcium Phosphorus Total Bilirubin AST ALT C-Reactive Protein Total Protein Albumin Triglycerides Amylase Lipase Urine WBC (Auto) Vancomycin Trough Crossmatch 01/05/18 01/05/18 01/05/18 03:50 06:00 06:07 WBC RBC Hgb Hct MCV MCH MCHC RDW Plt Count Lymph % (Auto) Eos % (Auto) [place] # Eos # Baso # Seg Neutrophils % Seg Neuts % (Manual) Lymphocytes % (Manual) Monocytes % (Manual) Eosinophils % (Manual) Nucleated RBC % Seg Neutrophils # Seg Neutrophils # Man Lymphocytes # (Manual) Monocytes # (Manual) Eosinophils # (Manual) APTT POC ABG pH ABG pH POC ABG pCO2 POC ABG pO2 ABG pO2 64.6 L ABG HCO3 30.2 H ABG O2 Saturation 91.3 L ABG Base Excess 5.5 H ABG Hemoglobin 10.1 L VBG pH Oxyhemoglobin 89.0 L Sodium Potassium Chloride Carbon Dioxide BUN Creatinine 0.4 L Glucose 144 H POC Glucose 136 H Lactic Acid Calcium Phosphorus Total Bilirubin AST ALT C-Reactive Protein Total Protein Albumin Triglycerides Amylase Lipase Urine WBC (Auto) Vancomycin Trough Crossmatch 01/05/18 01/05/18 01/05/18 10:46 14:03 17:31 WBC RBC Hgb Hct MCV MCH MCHC RDW Plt Count Lymph % (Auto) Eos % (Auto) [place] # Eos # Baso # Seg Neutrophils % Seg Neuts % (Manual) Lymphocytes % (Manual) Monocytes % (Manual) Eosinophils % (Manual) Nucleated RBC % Seg Neutrophils # Seg Neutrophils # Man Lymphocytes # (Manual) Monocytes # (Manual) Eosinophils # (Manual) APTT POC ABG pH ABG pH POC ABG pCO2 POC ABG pO2 ABG pO2 ABG HCO3 ABG O2 Saturation ABG Base Excess ABG Hemoglobin VBG pH Oxyhemoglobin Sodium Potassium Chloride Carbon Dioxide BUN Creatinine Glucose POC Glucose 147 H 141 H 192 H Lactic Acid Calcium Phosphorus Total Bilirubin AST ALT C-Reactive Protein Total Protein Albumin Triglycerides Amylase Lipase Urine WBC (Auto) Vancomycin Trough Crossmatch 01/05/18 01/05/18 01/06/18 22:12 Unknown 01:58 WBC RBC Hgb Hct MCV MCH MCHC RDW Plt Count Lymph % (Auto) Eos % (Auto) [place] # Eos # Baso # Seg Neutrophils % Seg Neuts % (Manual) Lymphocytes % (Manual) Monocytes % (Manual) Eosinophils % (Manual) Nucleated RBC % Seg Neutrophils # Seg Neutrophils # Man Lymphocytes # (Manual) Monocytes # (Manual) Eosinophils # (Manual) APTT POC ABG pH ABG pH 7.463 H POC ABG pCO2 POC ABG pO2 ABG pO2 74.0 L ABG HCO3 29.4 H ABG O2 Saturation ABG Base Excess 5.2 H ABG Hemoglobin 10.0 L VBG pH Oxyhemoglobin 93.4 L Sodium Potassium Chloride Carbon Dioxide BUN Creatinine Glucose POC Glucose 209 H 138 H Lactic Acid Calcium Phosphorus Total Bilirubin AST ALT C-Reactive Protein Total Protein Albumin Triglycerides Amylase Lipase Urine WBC (Auto) Vancomycin Trough Crossmatch 01/06/18 01/06/18 01/06/18 03:14 05:30 05:30 WBC 12.6 H RBC 3.16 L Hgb 10.4 L Hct 31.7 L MCV 100 H MCH 33 H MCHC RDW 15.5 H Plt Count Lymph % (Auto) Eos % (Auto) [place] # Eos # Baso # Seg Neutrophils % Seg Neuts % (Manual) 72.0 H Lymphocytes % (Manual) Monocytes % (Manual) 9.0 H Eosinophils % (Manual) Nucleated RBC % 1.0 H Seg Neutrophils # Seg Neutrophils # Man 9.1 H Lymphocytes # (Manual) Monocytes # (Manual) 1.1 H Eosinophils # (Manual) APTT POC ABG pH ABG pH POC ABG pCO2 POC ABG pO2 ABG pO2 ABG HCO3 28.8 H ABG O2 Saturation ABG Base Excess 4.2 H ABG Hemoglobin 9.3 L VBG pH Oxyhemoglobin 94.7 L Sodium 136 L Potassium Chloride 94.2 L Carbon Dioxide BUN Creatinine 0.4 L Glucose 146 H POC Glucose Lactic Acid Calcium Phosphorus Total Bilirubin AST ALT C-Reactive Protein Total Protein Albumin 3.1 L Triglycerides Amylase Lipase Urine WBC (Auto) Vancomycin Trough Crossmatch 01/06/18 01/06/18 01/06/18 05:42 10:00 14:40 WBC RBC Hgb Hct MCV MCH MCHC RDW Plt Count Lymph % (Auto) Eos % (Auto) [place] # Eos # Baso # Seg Neutrophils % Seg Neuts % (Manual) Lymphocytes % (Manual) Monocytes % (Manual) Eosinophils % (Manual) Nucleated RBC % Seg Neutrophils # Seg Neutrophils # Man Lymphocytes # (Manual) Monocytes # (Manual) Eosinophils # (Manual) APTT POC ABG pH ABG pH POC ABG pCO2 POC ABG pO2 ABG pO2 ABG HCO3 ABG O2 Saturation ABG Base Excess ABG Hemoglobin VBG pH Oxyhemoglobin Sodium Potassium Chloride Carbon Dioxide BUN Creatinine Glucose POC Glucose 158 H 155 H 115 H Lactic Acid Calcium Phosphorus Total Bilirubin AST ALT C-Reactive Protein Total Protein Albumin Triglycerides Amylase Lipase Urine WBC (Auto) Vancomycin Trough Crossmatch 01/06/18 01/06/18 01/07/18 17:45 21:59 05:29 WBC RBC Hgb Hct MCV MCH MCHC RDW Plt Count Lymph % (Auto) Eos % (Auto) [place] # Eos # Baso # Seg Neutrophils % Seg Neuts % (Manual) Lymphocytes % (Manual) Monocytes % (Manual) Eosinophils % (Manual) Nucleated RBC % Seg Neutrophils # Seg Neutrophils # Man Lymphocytes # (Manual) Monocytes # (Manual) Eosinophils # (Manual) APTT POC ABG pH ABG pH POC ABG pCO2 POC ABG pO2 ABG pO2 ABG HCO3 ABG O2 Saturation ABG Base Excess ABG Hemoglobin VBG pH Oxyhemoglobin Sodium Potassium Chloride Carbon Dioxide BUN Creatinine Glucose POC Glucose 156 H 177 H 179 H Lactic Acid Calcium Phosphorus Total Bilirubin AST ALT C-Reactive Protein Total Protein Albumin Triglycerides Amylase Lipase Urine WBC (Auto) Vancomycin Trough Crossmatch
[2018-01-07] MEDS: LOVENOX SUB-Q SCH (22:13)
[2018-01-08] MEDS: SUBLIMAZE IV PRN ×2 (00:14→05:28)
[2018-01-08] MEDS: LIBRIUM PO SCH ×4 (00:15→17:45)
[2018-01-08] MEDS: HumaLOG SUB-Q SCH ×6 (02:51→21:50)
[2018-01-08] MEDS: DUONEB *Not for PRN Use IH SCH ×3 (08:21→20:39)
[2018-01-08] MEDS: LANTUS SUB-Q SCH (09:52)
[2018-01-08] MEDS: VITAMIN B-1 PO SCH (09:54)
[2018-01-08] MEDS: LOPRESSOR PO SCH ×2 (09:54→21:41)
[2018-01-08] MEDS: POTASSIUM CHLORIDE PO SCH (09:55)
[2018-01-08] MEDS: SODIUM CHLORIDE FLUSH SYRINGE 10 ML IV SCH ×2 (09:55→21:42)
[2018-01-08] MEDS: PEPCID PO SCH ×2 (09:55→21:41)
[2018-01-08 11:11] LABS: Hemoglobin 10.5 gm/dl (11.8-15.2); Mean Corpuscular HGB Conc 33 % (32-34); Mean Corpuscular Hemoglobin 33 pg (28-32); Mean Corpuscular Volume 100 fl (84-94); Platelet Count 301 K/mm3 (140-440); Red Blood Count 3.21 M/mm3 (3.65-5.03); Red Cell Distribution Width 15.7 % (13.2-15.2)
--- NOTE | 2018-01-08 11:15 | Progress Note ---
Assessment and Plan 47 y/o male with acute respiratory failure thought secondary to H. Flu now with H. Flu bacteremia, sepsis and persistent fevers. 1. Acute respiratory failure. Patient re-intubated 12/28. Started with higher peeps as I feel some of the haze on his CXR is volume. Wean FiO2 first and then start weaning PEEP. Discussed the possibility of trach with . Given the patient's obesity, anxiety and possible underlying psych issues, may need a trach for safety. Continue to wean and attempt PSV trials when ready. Unfortunately, patient continues to fail PSV trials. Will need trach. On board with trach but has to revisit the feeding tube issue. Still no answer yet today. 2. Follow up any new ID recs 3. Monitor I/O. Patient is producing large amounts of urine. Could represent SIADH. BP stable but may need to replace 1:1 if this continues. Subjective Date of service: 01/08/18 Principal diagnosis: ARDS,Respiratory failure,pneumonia Interval history: No acute events overnight. Actually tolerating PSV this am. at bedside. Awaiting a ride to go home to get rest. Objective Vital Signs - 12hr 01/08/18 01/08/18 01/08/18 00:00 00:02 01:00 Temperature 98.9 F Pulse Rate 88 87 85 Pulse Rate [ Anterior Bilateral Throughout] Respiratory 23 23 18 Rate Respiratory Rate [Anterior Bilateral Throughout] Blood Pressure 109/78 109/78 109/75 O2 Sat by Pulse 99 99 98 Oximetry 01/08/18 01/08/18 01/08/18 02:00 03:00 03:46 Temperature 98.9 F Pulse Rate 93 H 95 H Pulse Rate [ Anterior Bilateral Throughout] Respiratory 14 24 Rate Respiratory Rate [Anterior Bilateral Throughout] Blood Pressure 99/78 99/78 O2 Sat by Pulse 94 98 Oximetry 01/08/18 01/08/18 01/08/18 04:00 04:47 05:00 Temperature Pulse Rate 95 H 94 H 92 H Pulse Rate [ Anterior Bilateral Throughout] Respiratory 23 38 H Rate Respiratory Rate [Anterior Bilateral Throughout] Blood Pressure 108/78 108/78 132/85 O2 Sat by Pulse 98 96 95 Oximetry 01/08/18 01/08/18 01/08/18 06:00 08:00 09:03 Temperature Pulse Rate 93 H 102 H Pulse Rate [ 109 H Anterior Bilateral Throughout] Respiratory 20 Rate Respiratory 31 H Rate [Anterior Bilateral Throughout] Blood Pressure 140/88 149/80 O2 Sat by Pulse 93 97 Oximetry 01/08/18 01/08/18 09:36 09:54 Temperature Pulse Rate 104 H 105 H Pulse Rate [ Anterior Bilateral Throughout] Respiratory Rate Respiratory Rate [Anterior Bilateral Throughout] Blood Pressure 144/90 144/90 O2 Sat by Pulse 96 Oximetry Constitutional: no acute distress, alert, asleep Eyes: non-icteric ENT: oropharynx moist, other (ETT at 24. ) Neck: no JVD Effort: normal Ascultation: Right: rales, Bilateral: clear, diminished breath sounds, wheezes ( mild), rhonchi (sporadic), other (coarse BS bilaterally) Percussion: Bilateral: not dull Tactile fremitus: Bilateral: normal Cardiovascular: regular rate and rhythm Gastrointestinal: hypoactive bowel sounds, non-tender, other (abdominal obesity) Integumentary: normal Extremities: no cyanosis, no ischemia or petechiae Neurologic: non-focal exam, pupils equal and round, CN II-XII normal Psychiatric: mood appropriate CBC and BMP: 01/06/18 05:30 01/06/18 05:30 ABG, PT/INR, D-dimer: ABG POC ABG pH 7.503 (7.35-7.45) H 12/25/17 03:38 ABG pH 7.441 pH Units (7.350-7.450) 01/06/18 03:14 POC ABG pCO2 35.8 (35-45) 12/25/17 03:38 ABG pCO2 43.2 mm Hg 01/06/18 03:14 POC ABG pO2 66 (80-105) L 12/25/17 03:38 ABG pO2 84.9 mm Hg (80.0-90.0) 01/06/18 03:14 POC ABG HCO3 28.1 12/25/17 03:38 POC ABG Total CO2 29 12/25/17 03:38 POC ABG O2 Sat 95 12/25/17 03:38 ABG O2 Saturation 97.0 % (95.0-99.0) 01/06/18 03:14 PT/INR, D-dimer PT 14.9 Sec. (12.2-14.9) 12/15/17 04:05 INR 1.11 (0.87-1.13) 12/15/17 04:05 Abnormal lab findings: Abnormal Labs 12/12/17 12/12/17 12/12/17 18:57 19:02 19:02 WBC RBC Hgb Hct MCV 96 H MCH 34 H MCHC 35 H RDW Plt Count 46 L Lymph % (Auto) Eos % (Auto) Owen # Eos # Baso # Seg Neutrophils % Seg Neuts % (Manual) 77.0 H Lymphocytes % (Manual) 13.0 L Monocytes % (Manual) Eosinophils % (Manual) Nucleated RBC % Seg Neutrophils # Seg Neutrophils # Man Lymphocytes # (Manual) 0.9 L Monocytes # (Manual) Eosinophils # (Manual) APTT POC ABG pH ABG pH POC ABG pCO2 POC ABG pO2 ABG pO2 ABG HCO3 ABG O2 Saturation ABG Base Excess ABG Hemoglobin VBG pH Oxyhemoglobin Sodium Potassium Chloride Carbon Dioxide BUN Creatinine Glucose POC Glucose 321 H Lactic Acid 4.00 H* Calcium Phosphorus Total Bilirubin AST ALT C-Reactive Protein Total Protein Albumin Triglycerides Amylase Lipase Urine WBC (Auto) Vancomycin Trough Crossmatch 12/12/17 12/12/17 12/12/17 19:02 19:18 20:55 WBC RBC Hgb Hct MCV MCH MCHC RDW Plt Count Lymph % (Auto) Eos % (Auto) Owen # Eos # Baso # Seg Neutrophils % Seg Neuts % (Manual) Lymphocytes % (Manual) Monocytes % (Manual) Eosinophils % (Manual) Nucleated RBC % Seg Neutrophils # Seg Neutrophils # Man Lymphocytes # (Manual) Monocytes # (Manual) Eosinophils # (Manual) APTT POC ABG pH ABG pH POC ABG pCO2 POC ABG pO2 ABG pO2 ABG HCO3 ABG O2 Saturation ABG Base Excess ABG Hemoglobin VBG pH 7.472 H Oxyhemoglobin Sodium 124 L Potassium Chloride 80.0 L Carbon Dioxide 20 L BUN Creatinine Glucose 382 H POC Glucose 283 H Lactic Acid Calcium 8.1 L Phosphorus Total Bilirubin 4.60 H AST 93 H ALT 112 H C-Reactive Protein Total Protein Albumin 2.5 L Triglycerides Amylase Lipase Urine WBC (Auto) Vancomycin Trough Crossmatch 12/12/17 12/13/17 12/13/17 21:41 00:45 01:29 WBC RBC Hgb Hct MCV MCH MCHC RDW Plt Count Lymph % (Auto) Eos % (Auto) Owen # Eos # Baso # Seg Neutrophils % Seg Neuts % (Manual) Lymphocytes % (Manual) Monocytes % (Manual) Eosinophils % (Manual) Nucleated RBC % Seg Neutrophils # Seg Neutrophils # Man Lymphocytes # (Manual) Monocytes # (Manual) Eosinophils # (Manual) APTT POC ABG pH ABG pH POC ABG pCO2 POC ABG pO2 ABG pO2 ABG HCO3 ABG O2 Saturation ABG Base Excess ABG Hemoglobin VBG pH Oxyhemoglobin Sodium Potassium Chloride Carbon Dioxide BUN Creatinine Glucose POC Glucose Lactic Acid 4.20 H* 2.70 H* 3.30 H* Calcium Phosphorus Total Bilirubin AST ALT C-Reactive Protein Total Protein Albumin Triglycerides Amylase Lipase Urine WBC (Auto) Vancomycin Trough Crossmatch 12/13/17 12/13/17 12/13/17 02:19 03:44 05:58 WBC RBC Hgb Hct MCV 97 H MCH 34 H MCHC 35 H RDW Plt Count 41 L Lymph % (Auto) Eos % (Auto) Owen # Eos # Baso # Seg Neutrophils % Seg Neuts % (Manual) Lymphocytes % (Manual) 8.0 L Monocytes % (Manual) 8.0 H Eosinophils % (Manual) Nucleated RBC % Seg Neutrophils # Seg Neutrophils # Man Lymphocytes # (Manual) 0.6 L Monocytes # (Manual) Eosinophils # (Manual) APTT POC ABG pH 7.334 L ABG pH POC ABG pCO2 POC ABG pO2 43 L ABG pO2 ABG HCO3 ABG O2 Saturation ABG Base Excess ABG Hemoglobin VBG pH Oxyhemoglobin Sodium Potassium Chloride Carbon Dioxide BUN Creatinine Glucose POC Glucose Lactic Acid 2.60 H* Calcium Phosphorus Total Bilirubin AST ALT C-Reactive Protein Total Protein Albumin Triglycerides Amylase Lipase Urine WBC (Auto) Vancomycin Trough Crossmatch 12/13/17 12/13/17 12/13/17 05:58 05:58 05:58 WBC RBC Hgb Hct MCV MCH MCHC RDW Plt Count Lymph % (Auto) Eos % (Auto) Owen # Eos # Baso # Seg Neutrophils % Seg Neuts % (Manual) Lymphocytes % (Manual) Monocytes % (Manual) Eosinophils % (Manual) Nucleated RBC % Seg Neutrophils # Seg Neutrophils # Man Lymphocytes # (Manual) Monocytes # (Manual) Eosinophils # (Manual) APTT POC ABG pH ABG pH POC ABG pCO2 POC ABG pO2 ABG pO2 ABG HCO3 ABG O2 Saturation ABG Base Excess ABG Hemoglobin VBG pH Oxyhemoglobin Sodium 132 L D Potassium Chloride 90.0 L Carbon Dioxide 20 L BUN Creatinine Glucose 346 H POC Glucose 298 H Lactic Acid 4.50 H* Calcium 8.2 L Phosphorus Total Bilirubin AST ALT C-Reactive Protein Total Protein Albumin Triglycerides Amylase Lipase Urine WBC (Auto) Vancomycin Trough Crossmatch 12/13/17 12/13/17 12/13/17 06:27 09:42 11:47 WBC RBC Hgb Hct MCV MCH MCHC RDW Plt Count Lymph % (Auto) Eos % (Auto) Owen # Eos # Baso # Seg Neutrophils % Seg Neuts % (Manual) Lymphocytes % (Manual) Monocytes % (Manual) Eosinophils % (Manual) Nucleated RBC % Seg Neutrophils # Seg Neutrophils # Man Lymphocytes # (Manual) Monocytes # (Manual) Eosinophils # (Manual) APTT POC ABG pH 7.267 L 7.298 L ABG pH POC ABG pCO2 50.4 H 51.3 H POC ABG pO2 47 L 43 L ABG pO2 ABG HCO3 ABG O2 Saturation ABG Base Excess ABG Hemoglobin VBG pH Oxyhemoglobin Sodium Potassium Chloride Carbon Dioxide BUN Creatinine Glucose POC Glucose 376 H Lactic Acid Calcium Phosphorus Total Bilirubin AST ALT C-Reactive Protein Total Protein Albumin Triglycerides Amylase Lipase Urine WBC (Auto) Vancomycin Trough Crossmatch 12/13/17 12/13/17 12/13/17 12:03 13:47 13:47 WBC RBC Hgb Hct MCV MCH MCHC RDW Plt Count Lymph % (Auto) Eos % (Auto) Owen # Eos # Baso # Seg Neutrophils % Seg Neuts % (Manual) Lymphocytes % (Manual) Monocytes % (Manual) Eosinophils % (Manual) Nucleated RBC % Seg Neutrophils # Seg Neutrophils # Man Lymphocytes # (Manual) Monocytes # (Manual) Eosinophils # (Manual) APTT POC ABG pH 7.264 L ABG pH POC ABG pCO2 54.9 H POC ABG pO2 55 L ABG pO2 ABG HCO3 ABG O2 Saturation ABG Base Excess ABG Hemoglobin VBG pH Oxyhemoglobin Sodium Potassium Chloride Carbon Dioxide BUN Creatinine Glucose POC Glucose Lactic Acid 2.80 H* Calcium Phosphorus Total Bilirubin AST ALT C-Reactive Protein Total Protein Albumin Triglycerides Amylase 20 L Lipase 9 L Urine WBC (Auto) Vancomycin Trough Crossmatch 12/13/17 12/13/17 12/13/17 15:36 17:39 21:47 WBC RBC Hgb Hct MCV MCH MCHC RDW Plt Count Lymph % (Auto) Eos % (Auto) Owen # Eos # Baso # Seg Neutrophils % Seg Neuts % (Manual) Lymphocytes % (Manual) Monocytes % (Manual) Eosinophils % (Manual) Nucleated RBC % Seg Neutrophils # Seg Neutrophils # Man Lymphocytes # (Manual) Monocytes # (Manual) Eosinophils # (Manual) APTT POC ABG pH 7.229 L 7.225 L ABG pH POC ABG pCO2 60.9 H 66.3 H POC ABG pO2 42 L 41 L ABG pO2 ABG HCO3 ABG O2 Saturation ABG Base Excess ABG Hemoglobin VBG pH Oxyhemoglobin Sodium Potassium Chloride Carbon Dioxide BUN Creatinine Glucose POC Glucose 289 H Lactic Acid Calcium Phosphorus Total Bilirubin AST ALT C-Reactive Protein Total Protein Albumin Triglycerides Amylase Lipase Urine WBC (Auto) Vancomycin Trough Crossmatch 12/13/17 12/14/17 12/14/17 22:19 02:03 05:16 WBC RBC Hgb Hct MCV MCH MCHC RDW Plt Count Lymph % (Auto) Eos % (Auto) Owen # Eos # Baso # Seg Neutrophils % Seg Neuts % (Manual) Lymphocytes % (Manual) Monocytes % (Manual) Eosinophils % (Manual) Nucleated RBC % Seg Neutrophils # Seg Neutrophils # Man Lymphocytes # (Manual) Monocytes # (Manual) Eosinophils # (Manual) APTT POC ABG pH 7.247 L ABG pH POC ABG pCO2 61.2 H POC ABG pO2 53 L ABG pO2 ABG HCO3 ABG O2 Saturation ABG Base Excess ABG Hemoglobin VBG pH Oxyhemoglobin Sodium Potassium Chloride Carbon Dioxide BUN Creatinine Glucose POC Glucose 274 H 295 H Lactic Acid Calcium Phosphorus Total Bilirubin AST ALT C-Reactive Protein Total Protein Albumin Triglycerides Amylase Lipase Urine WBC (Auto) Vancomycin Trough Crossmatch 12/14/17 12/14/17 12/14/17 05:32 12:04 16:22 WBC RBC Hgb Hct MCV MCH MCHC RDW Plt Count Lymph % (Auto) Eos % (Auto) Owen # Eos # Baso # Seg Neutrophils % Seg Neuts % (Manual) Lymphocytes % (Manual) Monocytes % (Manual) Eosinophils % (Manual) Nucleated RBC % Seg Neutrophils # Seg Neutrophils # Man Lymphocytes # (Manual) Monocytes # (Manual) Eosinophils # (Manual) APTT POC ABG pH ABG pH POC ABG pCO2 POC ABG pO2 ABG pO2 ABG HCO3 ABG O2 Saturation ABG Base Excess ABG Hemoglobin VBG pH Oxyhemoglobin Sodium Potassium Chloride Carbon Dioxide BUN Creatinine Glucose POC Glucose 230 H 241 H 231 H Lactic Acid Calcium Phosphorus Total Bilirubin AST ALT C-Reactive Protein Total Protein Albumin Triglycerides Amylase Lipase Urine WBC (Auto) Vancomycin Trough Crossmatch 12/14/17 12/15/17 12/15/17 21:29 02:29 03:25 WBC RBC Hgb Hct MCV MCH MCHC RDW Plt Count Lymph % (Auto) Eos % (Auto) Owen # Eos # Baso # Seg Neutrophils % Seg Neuts % (Manual) Lymphocytes % (Manual) Monocytes % (Manual) Eosinophils % (Manual) Nucleated RBC % Seg Neutrophils # Seg Neutrophils # Man Lymphocytes # (Manual) Monocytes # (Manual) Eosinophils # (Manual) APTT POC ABG pH 7.330 L ABG pH POC ABG pCO2 55.3 H POC ABG pO2 59 L ABG pO2 ABG HCO3 ABG O2 Saturation ABG Base Excess ABG Hemoglobin VBG pH Oxyhemoglobin Sodium Potassium Chloride Carbon Dioxide BUN Creatinine Glucose POC Glucose 258 H 246 H Lactic Acid Calcium Phosphorus Total Bilirubin AST ALT C-Reactive Protein Total Protein Albumin Triglycerides Amylase Lipase Urine WBC (Auto) Vancomycin Trough Crossmatch 12/15/17 12/15/17 12/15/17 04:05 04:05 04:05 WBC 15.0 H RBC 3.40 L Hgb 11.3 L D Hct 33.8 L D MCV 100 H MCH 33 H MCHC RDW Plt Count 48 L Lymph % (Auto) Eos % (Auto) Owen # Eos # Baso # Seg Neutrophils % Seg Neuts % (Manual) Lymphocytes % (Manual) 3.0 L Monocytes % (Manual) Eosinophils % (Manual) Nucleated RBC % 2.0 H Seg Neutrophils # Seg Neutrophils # Man Lymphocytes # (Manual) 0.5 L Monocytes # (Manual) 0.9 H Eosinophils # (Manual) APTT 20.9 L POC ABG pH ABG pH POC ABG pCO2 POC ABG pO2 ABG pO2 ABG HCO3 ABG O2 Saturation ABG Base Excess ABG Hemoglobin VBG pH Oxyhemoglobin Sodium Potassium Chloride Carbon Dioxide BUN 27 H Creatinine Glucose 258 H POC Glucose Lactic Acid Calcium 8.1 L Phosphorus Total Bilirubin AST ALT C-Reactive Protein Total Protein Albumin Triglycerides Amylase Lipase Urine WBC (Auto) Vancomycin Trough Crossmatch 12/15/17 12/15/17 12/15/17 05:32 11:17 14:59 WBC RBC Hgb Hct MCV MCH MCHC RDW Plt Count Lymph % (Auto) Eos % (Auto) Owen # Eos # Baso # Seg Neutrophils % Seg Neuts % (Manual) Lymphocytes % (Manual) Monocytes % (Manual) Eosinophils % (Manual) Nucleated RBC % Seg Neutrophils # Seg Neutrophils # Man Lymphocytes # (Manual) Monocytes # (Manual) Eosinophils # (Manual) APTT POC ABG pH ABG pH POC ABG pCO2 POC ABG pO2 ABG pO2 ABG HCO3 ABG O2 Saturation ABG Base Excess ABG Hemoglobin VBG pH Oxyhemoglobin Sodium Potassium Chloride Carbon Dioxide BUN Creatinine Glucose POC Glucose 247 H 268 H 233 H Lactic Acid Calcium Phosphorus Total Bilirubin AST ALT C-Reactive Protein Total Protein Albumin Triglycerides Amylase Lipase Urine WBC (Auto) Vancomycin Trough Crossmatch 12/15/17 12/15/17 12/15/17 17:00 18:59 21:37 WBC RBC Hgb Hct MCV MCH MCHC RDW Plt Count Lymph % (Auto) Eos % (Auto) Owen # Eos # Baso # Seg Neutrophils % Seg Neuts % (Manual) Lymphocytes % (Manual) Monocytes % (Manual) Eosinophils % (Manual) Nucleated RBC % Seg Neutrophils # Seg Neutrophils # Man Lymphocytes # (Manual) Monocytes # (Manual) Eosinophils # (Manual) APTT POC ABG pH ABG pH POC ABG pCO2 POC ABG pO2 ABG pO2 ABG HCO3 ABG O2 Saturation ABG Base Excess ABG Hemoglobin VBG pH Oxyhemoglobin Sodium Potassium Chloride Carbon Dioxide BUN Creatinine Glucose POC Glucose 195 H 208 H Lactic Acid Calcium Phosphorus Total Bilirubin AST ALT C-Reactive Protein Total Protein Albumin Triglycerides Amylase Lipase Urine WBC (Auto) 38.0 H Vancomycin Trough Crossmatch 12/16/17 12/16/17 12/16/17 03:17 03:33 04:18 WBC 16.4 H RBC 3.50 L Hgb 11.3 L Hct 35.4 L MCV 101 H MCH MCHC RDW Plt Count 54 L Lymph % (Auto) Eos % (Auto) Owen # Eos # Baso # Seg Neutrophils % Seg Neuts % (Manual) Lymphocytes % (Manual) Monocytes % (Manual) Eosinophils % (Manual) Nucleated RBC % Seg Neutrophils # Seg Neutrophils # Man Lymphocytes # (Manual) Monocytes # (Manual) Eosinophils # (Manual) APTT POC ABG pH ABG pH POC ABG pCO2 47.7 H POC ABG pO2 ABG pO2 ABG HCO3 ABG O2 Saturation ABG Base Excess ABG Hemoglobin VBG pH Oxyhemoglobin Sodium Potassium Chloride Carbon Dioxide BUN Creatinine Glucose POC Glucose 227 H Lactic Acid Calcium Phosphorus Total Bilirubin AST ALT C-Reactive Protein Total Protein Albumin Triglycerides Amylase Lipase Urine WBC (Auto) Vancomycin Trough Crossmatch 12/16/17 12/16/17 12/16/17 04:18 05:08 10:01 WBC RBC Hgb Hct MCV MCH MCHC RDW Plt Count Lymph % (Auto) Eos % (Auto) Owen # Eos # Baso # Seg Neutrophils % Seg Neuts % (Manual) Lymphocytes % (Manual) Monocytes % (Manual) Eosinophils % (Manual) Nucleated RBC % Seg Neutrophils # Seg Neutrophils # Man Lymphocytes # (Manual) Monocytes # (Manual) Eosinophils # (Manual) APTT POC ABG pH ABG pH POC ABG pCO2 POC ABG pO2 ABG pO2 ABG HCO3 ABG O2 Saturation ABG Base Excess ABG Hemoglobin VBG pH Oxyhemoglobin Sodium 147 H Potassium Chloride 107.4 H Carbon Dioxide BUN 28 H Creatinine Glucose 240 H POC Glucose 227 H 190 H Lactic Acid Calcium 8.3 L Phosphorus Total Bilirubin AST ALT C-Reactive Protein Total Protein Albumin Triglycerides Amylase Lipase Urine WBC (Auto) Vancomycin Trough Crossmatch 12/16/17 12/16/17 12/16/17 14:15 17:51 21:14 WBC RBC Hgb Hct MCV MCH MCHC RDW Plt Count Lymph % (Auto) Eos % (Auto) Owen # Eos # Baso # Seg Neutrophils % Seg Neuts % (Manual) Lymphocytes % (Manual) Monocytes % (Manual) Eosinophils % (Manual) Nucleated RBC % Seg Neutrophils # Seg Neutrophils # Man Lymphocytes # (Manual) Monocytes # (Manual) Eosinophils # (Manual) APTT POC ABG pH ABG pH POC ABG pCO2 POC ABG pO2 ABG pO2 ABG HCO3 ABG O2 Saturation ABG Base Excess ABG Hemoglobin VBG pH Oxyhemoglobin Sodium Potassium Chloride Carbon Dioxide BUN Creatinine Glucose POC Glucose 279 H 272 H 260 H Lactic Acid Calcium Phosphorus Total Bilirubin AST ALT C-Reactive Protein Total Protein Albumin Triglycerides Amylase Lipase Urine WBC (Auto) Vancomycin Trough Crossmatch 12/17/17 12/17/17 12/17/17 02:41 04:28 04:28 WBC 19.1 H RBC 3.50 L Hgb 11.4 L Hct 35.3 L MCV 101 H MCH 33 H MCHC RDW Plt Count 65 L Lymph % (Auto) Eos % (Auto) Owen # Eos # Baso # Seg Neutrophils % Seg Neuts % (Manual) Lymphocytes % (Manual) Monocytes % (Manual) Eosinophils % (Manual) Nucleated RBC % Seg Neutrophils # Seg Neutrophils # Man Lymphocytes # (Manual) Monocytes # (Manual) Eosinophils # (Manual) APTT POC ABG pH ABG pH POC ABG pCO2 POC ABG pO2 ABG pO2 ABG HCO3 ABG O2 Saturation ABG Base Excess ABG Hemoglobin VBG pH Oxyhemoglobin Sodium 153 H Potassium Chloride 111.2 H Carbon Dioxide 31 H BUN 28 H Creatinine Glucose 248 H POC Glucose 300 H Lactic Acid Calcium Phosphorus Total Bilirubin AST ALT C-Reactive Protein Total Protein Albumin Triglycerides Amylase Lipase Urine WBC (Auto) Vancomycin Trough Crossmatch 12/17/17 12/17/17 12/17/17 05:15 05:38 10:16 WBC RBC Hgb Hct MCV MCH MCHC RDW Plt Count Lymph % (Auto) Eos % (Auto) Owen # Eos # Baso # Seg Neutrophils % Seg Neuts % (Manual) Lymphocytes % (Manual) Monocytes % (Manual) Eosinophils % (Manual) Nucleated RBC % Seg Neutrophils # Seg Neutrophils # Man Lymphocytes # (Manual) Monocytes # (Manual) Eosinophils # (Manual) APTT POC ABG pH ABG pH POC ABG pCO2 50.3 H POC ABG pO2 120 H ABG pO2 ABG HCO3 ABG O2 Saturation ABG Base Excess ABG Hemoglobin VBG pH Oxyhemoglobin Sodium Potassium Chloride Carbon Dioxide BUN Creatinine Glucose POC Glucose 231 H 196 H Lactic Acid Calcium Phosphorus Total Bilirubin AST ALT C-Reactive Protein Total Protein Albumin Triglycerides Amylase Lipase Urine WBC (Auto) Vancomycin Trough Crossmatch 12/17/17 12/17/17 12/17/17 14:22 18:14 21:35 WBC RBC Hgb Hct MCV MCH MCHC RDW Plt Count Lymph % (Auto) Eos % (Auto) Owen # Eos # Baso # Seg Neutrophils % Seg Neuts % (Manual) Lymphocytes % (Manual) Monocytes % (Manual) Eosinophils % (Manual) Nucleated RBC % Seg Neutrophils # Seg Neutrophils # Man Lymphocytes # (Manual) Monocytes # (Manual) Eosinophils # (Manual) APTT POC ABG pH ABG pH POC ABG pCO2 POC ABG pO2 ABG pO2 ABG HCO3 ABG O2 Saturation ABG Base Excess ABG Hemoglobin VBG pH Oxyhemoglobin Sodium Potassium Chloride Carbon Dioxide BUN Creatinine Glucose POC Glucose 234 H 215 H 159 H Lactic Acid Calcium Phosphorus Total Bilirubin AST ALT C-Reactive Protein Total Protein Albumin Triglycerides Amylase Lipase Urine WBC (Auto) Vancomycin Trough Crossmatch 12/18/17 12/18/17 12/18/17 00:53 02:58 06:03 WBC RBC Hgb Hct MCV MCH MCHC RDW Plt Count Lymph % (Auto) Eos % (Auto) Owen # Eos # Baso # Seg Neutrophils % Seg Neuts % (Manual) Lymphocytes % (Manual) Monocytes % (Manual) Eosinophils % (Manual) Nucleated RBC % Seg Neutrophils # Seg Neutrophils # Man Lymphocytes # (Manual) Monocytes # (Manual) Eosinophils # (Manual) APTT POC ABG pH ABG pH POC ABG pCO2 56.4 H POC ABG pO2 46 L ABG pO2 ABG HCO3 ABG O2 Saturation ABG Base Excess ABG Hemoglobin VBG pH Oxyhemoglobin Sodium Potassium Chloride Carbon Dioxide BUN Creatinine Glucose POC Glucose 176 H 143 H Lactic Acid Calcium Phosphorus Total Bilirubin AST ALT C-Reactive Protein Total Protein Albumin Triglycerides Amylase Lipase Urine WBC (Auto) Vancomycin Trough Crossmatch 12/18/17 12/18/17 12/18/17 07:59 09:20 09:20 WBC 27.4 H RBC 3.57 L Hgb 11.4 L Hct MCV 101 H MCH MCHC RDW Plt Count 64 L Lymph % (Auto) Eos % (Auto) Owen # Eos # Baso # Seg Neutrophils % Seg Neuts % (Manual) Lymphocytes % (Manual) Monocytes % (Manual) Eosinophils % (Manual) Nucleated RBC % Seg Neutrophils # Seg Neutrophils # Man Lymphocytes # (Manual) Monocytes # (Manual) Eosinophils # (Manual) APTT POC ABG pH ABG pH POC ABG pCO2 POC ABG pO2 ABG pO2 ABG HCO3 ABG O2 Saturation ABG Base Excess ABG Hemoglobin VBG pH Oxyhemoglobin Sodium 152 H Potassium Chloride 107.9 H Carbon Dioxide 34 H BUN 23 H Creatinine 0.7 L Glucose 181 H POC Glucose 197 H Lactic Acid Calcium Phosphorus Total Bilirubin AST ALT C-Reactive Protein Total Protein Albumin Triglycerides Amylase Lipase Urine WBC (Auto) Vancomycin Trough Crossmatch 12/18/17 12/18/17 12/18/17 10:22 15:03 18:15 WBC RBC Hgb Hct MCV MCH MCHC RDW Plt Count Lymph % (Auto) Eos % (Auto) Owen # Eos # Baso # Seg Neutrophils % Seg Neuts % (Manual) Lymphocytes % (Manual) Monocytes % (Manual) Eosinophils % (Manual) Nucleated RBC % Seg Neutrophils # Seg Neutrophils # Man Lymphocytes # (Manual) Monocytes # (Manual) Eosinophils # (Manual) APTT POC ABG pH ABG pH POC ABG pCO2 POC ABG pO2 ABG pO2 ABG HCO3 ABG O2 Saturation ABG Base Excess ABG Hemoglobin VBG pH Oxyhemoglobin Sodium Potassium Chloride Carbon Dioxide BUN Creatinine Glucose POC Glucose 195 H 225 H 238 H Lactic Acid Calcium Phosphorus Total Bilirubin AST ALT C-Reactive Protein Total Protein Albumin Triglycerides Amylase Lipase Urine WBC (Auto) Vancomycin Trough Crossmatch 12/18/17 12/18/17 12/19/17 18:29 21:53 00:18 WBC RBC Hgb Hct MCV MCH MCHC RDW Plt Count Lymph % (Auto) Eos % (Auto) Owen # Eos # Baso # Seg Neutrophils % Seg Neuts % (Manual) Lymphocytes % (Manual) Monocytes % (Manual) Eosinophils % (Manual) Nucleated RBC % Seg Neutrophils # Seg Neutrophils # Man Lymphocytes # (Manual) Monocytes # (Manual) Eosinophils # (Manual) APTT POC ABG pH 7.476 H ABG pH POC ABG pCO2 50.4 H POC ABG pO2 158 H ABG pO2 ABG HCO3 ABG O2 Saturation ABG Base Excess ABG Hemoglobin VBG pH Oxyhemoglobin Sodium Potassium Chloride Carbon Dioxide BUN Creatinine Glucose POC Glucose 231 H 263 H Lactic Acid Calcium Phosphorus Total Bilirubin AST ALT C-Reactive Protein Total Protein Albumin Triglycerides Amylase Lipase Urine WBC (Auto) Vancomycin Trough Crossmatch 12/19/17 12/19/17 12/19/17 02:09 04:07 04:07 WBC 25.9 H RBC 3.25 L Hgb 10.6 L Hct 32.8 L MCV 101 H MCH 33 H MCHC RDW Plt Count 67 L Lymph % (Auto) Eos % (Auto) Owen # Eos # Baso # Seg Neutrophils % Seg Neuts % (Manual) Lymphocytes % (Manual) 4.0 L Monocytes % (Manual) Eosinophils % (Manual) Nucleated RBC % Seg Neutrophils # Seg Neutrophils # Man 14.8 H Lymphocytes # (Manual) 1.0 L Monocytes # (Manual) Eosinophils # (Manual) APTT POC ABG pH ABG pH POC ABG pCO2 POC ABG pO2 ABG pO2 ABG HCO3 ABG O2 Saturation ABG Base Excess ABG Hemoglobin VBG pH Oxyhemoglobin Sodium 148 H Potassium Chloride Carbon Dioxide BUN 31 H Creatinine Glucose 314 H POC Glucose 300 H Lactic Acid Calcium 8.1 L Phosphorus Total Bilirubin AST ALT C-Reactive Protein Total Protein Albumin Triglycerides Amylase Lipase Urine WBC (Auto) Vancomycin Trough Crossmatch 12/19/17 12/19/17 12/19/17 05:15 05:41 07:57 WBC RBC Hgb Hct MCV MCH MCHC RDW Plt Count Lymph % (Auto) Eos % (Auto) Owen # Eos # Baso # Seg Neutrophils % Seg Neuts % (Manual) Lymphocytes % (Manual) Monocytes % (Manual) Eosinophils % (Manual) Nucleated RBC % Seg Neutrophils # Seg Neutrophils # Man Lymphocytes # (Manual) Monocytes # (Manual) Eosinophils # (Manual) APTT POC ABG pH 7.507 H ABG pH POC ABG pCO2 POC ABG pO2 ABG pO2 ABG HCO3 ABG O2 Saturation ABG Base Excess ABG Hemoglobin VBG pH Oxyhemoglobin Sodium Potassium Chloride Carbon Dioxide BUN Creatinine Glucose POC Glucose 331 H 307 H Lactic Acid Calcium Phosphorus Total Bilirubin AST ALT C-Reactive Protein Total Protein Albumin Triglycerides Amylase Lipase Urine WBC (Auto) Vancomycin Trough Crossmatch 12/19/17 12/19/17 12/19/17 10:21 14:48 17:59 WBC RBC Hgb Hct MCV MCH MCHC RDW Plt Count Lymph % (Auto) Eos % (Auto) Owen # Eos # Baso # Seg Neutrophils % Seg Neuts % (Manual) Lymphocytes % (Manual) Monocytes % (Manual) Eosinophils % (Manual) Nucleated RBC % Seg Neutrophils # Seg Neutrophils # Man Lymphocytes # (Manual) Monocytes # (Manual) Eosinophils # (Manual) APTT POC ABG pH ABG pH POC ABG pCO2 POC ABG pO2 ABG pO2 ABG HCO3 ABG O2 Saturation ABG Base Excess ABG Hemoglobin VBG pH Oxyhemoglobin Sodium Potassium Chloride Carbon Dioxide BUN Creatinine Glucose POC Glucose 358 H 327 H 355 H Lactic Acid Calcium Phosphorus Total Bilirubin AST ALT C-Reactive Protein Total Protein Albumin Triglycerides Amylase Lipase Urine WBC (Auto) Vancomycin Trough Crossmatch 12/19/17 12/20/17 12/20/17 21:38 02:21 03:42 WBC RBC Hgb Hct MCV MCH MCHC RDW Plt Count Lymph % (Auto) Eos % (Auto) Owen # Eos # Baso # Seg Neutrophils % Seg Neuts % (Manual) Lymphocytes % (Manual) Monocytes % (Manual) Eosinophils % (Manual) Nucleated RBC % Seg Neutrophils # Seg Neutrophils # Man Lymphocytes # (Manual) Monocytes # (Manual) Eosinophils # (Manual) APTT POC ABG pH 7.494 H ABG pH POC ABG pCO2 POC ABG pO2 ABG pO2 ABG HCO3 ABG O2 Saturation ABG Base Excess ABG Hemoglobin VBG pH Oxyhemoglobin Sodium Potassium Chloride Carbon Dioxide BUN Creatinine Glucose POC Glucose 329 H 354 H Lactic Acid Calcium Phosphorus Total Bilirubin AST ALT C-Reactive Protein Total Protein Albumin Triglycerides Amylase Lipase Urine WBC (Auto) Vancomycin Trough Crossmatch 12/20/17 12/20/17 12/20/17 04:08 04:08 04:08 WBC 22.7 H RBC 3.26 L Hgb 10.6 L Hct 32.9 L MCV 101 H MCH 33 H MCHC RDW Plt Count 78 L Lymph % (Auto) Eos % (Auto) Owen # Eos # Baso # Seg Neutrophils % Seg Neuts % (Manual) 80.0 H Lymphocytes % (Manual) 6.0 L Monocytes % (Manual) Eosinophils % (Manual) Nucleated RBC % Seg Neutrophils # Seg Neutrophils # Man 18.2 H Lymphocytes # (Manual) Monocytes # (Manual) Eosinophils # (Manual) APTT POC ABG pH ABG pH POC ABG pCO2 POC ABG pO2 ABG pO2 ABG HCO3 ABG O2 Saturation ABG Base Excess ABG Hemoglobin VBG pH Oxyhemoglobin Sodium Potassium Chloride Carbon Dioxide 31 H BUN 30 H Creatinine 0.6 L Glucose 365 H POC Glucose Lactic Acid Calcium Phosphorus Total Bilirubin AST ALT C-Reactive Protein Total Protein Albumin Triglycerides 981 H Amylase Lipase Urine WBC (Auto) Vancomycin Trough Crossmatch 12/20/17 12/20/17 12/20/17 05:15 10:47 13:40 WBC RBC Hgb Hct MCV MCH MCHC RDW Plt Count Lymph % (Auto) Eos % (Auto) Owen # Eos # Baso # Seg Neutrophils % Seg Neuts % (Manual) Lymphocytes % (Manual) Monocytes % (Manual) Eosinophils % (Manual) Nucleated RBC % Seg Neutrophils # Seg Neutrophils # Man Lymphocytes # (Manual) Monocytes # (Manual) Eosinophils # (Manual) APTT POC ABG pH ABG pH POC ABG pCO2 POC ABG pO2 ABG pO2 ABG HCO3 ABG O2 Saturation ABG Base Excess ABG Hemoglobin VBG pH Oxyhemoglobin Sodium Potassium Chloride Carbon Dioxide BUN Creatinine Glucose POC Glucose 342 H 330 H Lactic Acid Calcium Phosphorus Total Bilirubin AST ALT C-Reactive Protein 7.10 H Total Protein Albumin Triglycerides Amylase Lipase Urine WBC (Auto) Vancomycin Trough Crossmatch 12/20/17 12/20/17 12/20/17 13:40 14:52 16:55 WBC RBC Hgb Hct MCV MCH MCHC RDW Plt Count Lymph % (Auto) Eos % (Auto) Owen # Eos # Baso # Seg Neutrophils % Seg Neuts % (Manual) Lymphocytes % (Manual) Monocytes % (Manual) Eosinophils % (Manual) Nucleated RBC % Seg Neutrophils # Seg Neutrophils # Man Lymphocytes # (Manual) Monocytes # (Manual) Eosinophils # (Manual) APTT POC ABG pH 7.484 H ABG pH POC ABG pCO2 POC ABG pO2 ABG pO2 ABG HCO3 ABG O2 Saturation ABG Base Excess ABG Hemoglobin VBG pH Oxyhemoglobin Sodium Potassium Chloride Carbon Dioxide BUN Creatinine Glucose POC Glucose 293 H Lactic Acid Calcium Phosphorus Total Bilirubin AST ALT C-Reactive Protein Total Protein Albumin Triglycerides 1042 H Amylase Lipase Urine WBC (Auto) Vancomycin Trough Crossmatch 12/20/17 12/20/17 12/21/17 18:00 21:58 02:05 WBC RBC Hgb Hct MCV MCH MCHC RDW Plt Count Lymph % (Auto) Eos % (Auto) Owen # Eos # Baso # Seg Neutrophils % Seg Neuts % (Manual) Lymphocytes % (Manual) Monocytes % (Manual) Eosinophils % (Manual) Nucleated RBC % Seg Neutrophils # Seg Neutrophils # Man Lymphocytes # (Manual) Monocytes # (Manual) Eosinophils # (Manual) APTT POC ABG pH ABG pH POC ABG pCO2 POC ABG pO2 ABG pO2 ABG HCO3 ABG O2 Saturation ABG Base Excess ABG Hemoglobin VBG pH Oxyhemoglobin Sodium Potassium Chloride Carbon Dioxide BUN Creatinine Glucose POC Glucose 268 H 272 H 229 H Lactic Acid Calcium Phosphorus Total Bilirubin AST ALT C-Reactive Protein Total Protein Albumin Triglycerides Amylase Lipase Urine WBC (Auto) Vancomycin Trough Crossmatch 12/21/17 12/21/17 12/21/17 03:59 06:23 08:57 WBC RBC Hgb Hct MCV MCH MCHC RDW Plt Count Lymph % (Auto) Eos % (Auto) Owen # Eos # Baso # Seg Neutrophils % Seg Neuts % (Manual) Lymphocytes % (Manual) Monocytes % (Manual) Eosinophils % (Manual) Nucleated RBC % Seg Neutrophils # Seg Neutrophils # Man Lymphocytes # (Manual) Monocytes # (Manual) Eosinophils # (Manual) APTT POC ABG pH 7.474 H ABG pH POC ABG pCO2 POC ABG pO2 71 L ABG pO2 ABG HCO3 ABG O2 Saturation ABG Base Excess ABG Hemoglobin VBG pH Oxyhemoglobin Sodium Potassium Chloride Carbon Dioxide BUN Creatinine Glucose POC Glucose 182 H 217 H Lactic Acid Calcium Phosphorus Total Bilirubin AST ALT C-Reactive Protein Total Protein Albumin Triglycerides Amylase Lipase Urine WBC (Auto) Vancomycin Trough Crossmatch 12/21/17 12/21/17 12/21/17 13:59 18:00 21:20 WBC RBC Hgb Hct MCV MCH MCHC RDW Plt Count Lymph % (Auto) Eos % (Auto) Owen # Eos # Baso # Seg Neutrophils % Seg Neuts % (Manual) Lymphocytes % (Manual) Monocytes % (Manual) Eosinophils % (Manual) Nucleated RBC % Seg Neutrophils # Seg Neutrophils # Man Lymphocytes # (Manual) Monocytes # (Manual) Eosinophils # (Manual) APTT POC ABG pH ABG pH POC ABG pCO2 POC ABG pO2 ABG pO2 ABG HCO3 ABG O2 Saturation ABG Base Excess ABG Hemoglobin VBG pH Oxyhemoglobin Sodium Potassium Chloride Carbon Dioxide BUN Creatinine Glucose POC Glucose 185 H 176 H 187 H Lactic Acid Calcium Phosphorus Total Bilirubin AST ALT C-Reactive Protein Total Protein Albumin Triglycerides Amylase Lipase Urine WBC (Auto) Vancomycin Trough Crossmatch 12/21/17 12/22/17 12/22/17 23:48 04:39 05:30 WBC RBC Hgb Hct MCV MCH MCHC RDW Plt Count Lymph % (Auto) Eos % (Auto) Owen # Eos # Baso # Seg Neutrophils % Seg Neuts % (Manual) Lymphocytes % (Manual) Monocytes % (Manual) Eosinophils % (Manual) Nucleated RBC % Seg Neutrophils # Seg Neutrophils # Man Lymphocytes # (Manual) Monocytes # (Manual) Eosinophils # (Manual) APTT POC ABG pH 7.528 H ABG pH POC ABG pCO2 POC ABG pO2 63 L ABG pO2 ABG HCO3 ABG O2 Saturation ABG Base Excess ABG Hemoglobin VBG pH Oxyhemoglobin Sodium Potassium Chloride Carbon Dioxide BUN Creatinine Glucose POC Glucose 126 H 117 H Lactic Acid Calcium Phosphorus Total Bilirubin AST ALT C-Reactive Protein Total Protein Albumin Triglycerides Amylase Lipase Urine WBC (Auto) Vancomycin Trough Crossmatch 12/22/17 12/22/17 12/22/17 09:12 10:34 10:34 WBC 29.5 H RBC 3.44 L Hgb 11.2 L Hct 34.2 L MCV 99 H MCH 33 H MCHC RDW 13.1 L Plt Count 97 L Lymph % (Auto) Eos % (Auto) Owen # Eos # Baso # Seg Neutrophils % Seg Neuts % (Manual) 88.0 H Lymphocytes % (Manual) 5.0 L Monocytes % (Manual) Eosinophils % (Manual) Nucleated RBC % Seg Neutrophils # Seg Neutrophils # Man 26.0 H Lymphocytes # (Manual) Monocytes # (Manual) Eosinophils # (Manual) APTT POC ABG pH ABG pH POC ABG pCO2 POC ABG pO2 ABG pO2 ABG HCO3 ABG O2 Saturation ABG Base Excess ABG Hemoglobin VBG pH Oxyhemoglobin Sodium 146 H Potassium 3.1 L Chloride Carbon Dioxide BUN 25 H Creatinine 0.7 L Glucose 146 H POC Glucose 168 H Lactic Acid Calcium 8.1 L Phosphorus Total Bilirubin AST ALT C-Reactive Protein Total Protein Albumin Triglycerides Amylase Lipase Urine WBC (Auto) Vancomycin Trough Crossmatch 12/22/17 12/22/17 12/22/17 14:51 17:21 21:43 WBC RBC Hgb Hct MCV MCH MCHC RDW Plt Count Lymph % (Auto) Eos % (Auto) Owen # Eos # Baso # Seg Neutrophils % Seg Neuts % (Manual) Lymphocytes % (Manual) Monocytes % (Manual) Eosinophils % (Manual) Nucleated RBC % Seg Neutrophils # Seg Neutrophils # Man Lymphocytes # (Manual) Monocytes # (Manual) Eosinophils # (Manual) APTT POC ABG pH ABG pH POC ABG pCO2 POC ABG pO2 ABG pO2 ABG HCO3 ABG O2 Saturation ABG Base Excess ABG Hemoglobin VBG pH Oxyhemoglobin Sodium Potassium Chloride Carbon Dioxide BUN Creatinine Glucose POC Glucose 125 H 110 H 153 H Lactic Acid Calcium Phosphorus Total Bilirubin AST ALT C-Reactive Protein Total Protein Albumin Triglycerides Amylase Lipase Urine WBC (Auto) Vancomycin Trough Crossmatch 12/23/17 12/23/17 12/23/17 04:33 05:28 09:25 WBC 31.4 H RBC 3.05 L Hgb 9.8 L Hct 30.2 L MCV 99 H MCH MCHC RDW 12.9 L Plt Count 101 L Lymph % (Auto) Eos % (Auto) Owen # Eos # Baso # Seg Neutrophils % Seg Neuts % (Manual) 97 H Lymphocytes % (Manual) 2 L Monocytes % (Manual) Eosinophils % (Manual) Nucleated RBC % Seg Neutrophils # Seg Neutrophils # Man 31.1 H Lymphocytes # (Manual) 0.5 L Monocytes # (Manual) Eosinophils # (Manual) APTT POC ABG pH 7.573 H ABG pH POC ABG pCO2 31.0 L POC ABG pO2 63 L ABG pO2 ABG HCO3 ABG O2 Saturation ABG Base Excess ABG Hemoglobin VBG pH Oxyhemoglobin Sodium Potassium Chloride Carbon Dioxide BUN Creatinine Glucose POC Glucose 124 H Lactic Acid Calcium Phosphorus Total Bilirubin AST ALT C-Reactive Protein Total Protein Albumin Triglycerides Amylase Lipase Urine WBC (Auto) Vancomycin Trough Crossmatch 12/23/17 12/23/17 12/23/17 09:25 10:08 14:20 WBC RBC Hgb Hct MCV MCH MCHC RDW Plt Count Lymph % (Auto) Eos % (Auto) Owen # Eos # Baso # Seg Neutrophils % Seg Neuts % (Manual) Lymphocytes % (Manual) Monocytes % (Manual) Eosinophils % (Manual) Nucleated RBC % Seg Neutrophils # Seg Neutrophils # Man Lymphocytes # (Manual) Monocytes # (Manual) Eosinophils # (Manual) APTT POC ABG pH ABG pH POC ABG pCO2 POC ABG pO2 ABG pO2 ABG HCO3 ABG O2 Saturation ABG Base Excess ABG Hemoglobin VBG pH Oxyhemoglobin Sodium Potassium 3.1 L Chloride Carbon Dioxide BUN Creatinine 0.6 L Glucose 169 H POC Glucose 171 H 211 H Lactic Acid Calcium 7.9 L Phosphorus Total Bilirubin AST ALT C-Reactive Protein Total Protein Albumin Triglycerides Amylase Lipase Urine WBC (Auto) Vancomycin Trough Crossmatch 12/23/17 12/23/17 12/24/17 18:59 21:49 01:47 WBC RBC Hgb Hct MCV MCH MCHC RDW Plt Count Lymph % (Auto) Eos % (Auto) Owen # Eos # Baso # Seg Neutrophils % Seg Neuts % (Manual) Lymphocytes % (Manual) Monocytes % (Manual) Eosinophils % (Manual) Nucleated RBC % Seg Neutrophils # Seg Neutrophils # Man Lymphocytes # (Manual) Monocytes # (Manual) Eosinophils # (Manual) APTT POC ABG pH ABG pH POC ABG pCO2 POC ABG pO2 ABG pO2 ABG HCO3 ABG O2 Saturation ABG Base Excess ABG Hemoglobin VBG pH Oxyhemoglobin Sodium Potassium Chloride Carbon Dioxide BUN Creatinine Glucose POC Glucose 175 H 146 H 143 H Lactic Acid Calcium Phosphorus Total Bilirubin AST ALT C-Reactive Protein Total Protein Albumin Triglycerides Amylase Lipase Urine WBC (Auto) Vancomycin Trough Crossmatch 12/24/17 12/24/17 12/24/17 05:40 10:12 13:12 WBC RBC Hgb Hct MCV MCH MCHC RDW Plt Count Lymph % (Auto) Eos % (Auto) Owen # Eos # Baso # Seg Neutrophils % Seg Neuts % (Manual) Lymphocytes % (Manual) Monocytes % (Manual) Eosinophils % (Manual) Nucleated RBC % Seg Neutrophils # Seg Neutrophils # Man Lymphocytes # (Manual) Monocytes # (Manual) Eosinophils # (Manual) APTT POC ABG pH 7.558 H ABG pH POC ABG pCO2 27.6 L POC ABG pO2 71 L ABG pO2 ABG HCO3 ABG O2 Saturation ABG Base Excess ABG Hemoglobin VBG pH Oxyhemoglobin Sodium Potassium Chloride Carbon Dioxide BUN Creatinine Glucose POC Glucose 118 H 111 H Lactic Acid Calcium Phosphorus Total Bilirubin AST ALT C-Reactive Protein Total Protein Albumin Triglycerides Amylase Lipase Urine WBC (Auto) Vancomycin Trough Crossmatch 12/24/17 12/24/17 12/24/17 16:26 20:44 21:49 WBC RBC Hgb Hct MCV MCH MCHC RDW Plt Count Lymph % (Auto) Eos % (Auto) Owen # Eos # Baso # Seg Neutrophils % Seg Neuts % (Manual) Lymphocytes % (Manual) Monocytes % (Manual) Eosinophils % (Manual) Nucleated RBC % Seg Neutrophils # Seg Neutrophils # Man Lymphocytes # (Manual) Monocytes # (Manual) Eosinophils # (Manual) APTT POC ABG pH ABG pH POC ABG pCO2 POC ABG pO2 ABG pO2 ABG HCO3 ABG O2 Saturation ABG Base Excess ABG Hemoglobin VBG pH Oxyhemoglobin Sodium Potassium Chloride Carbon Dioxide BUN Creatinine Glucose POC Glucose 113 H 124 H 115 H Lactic Acid Calcium Phosphorus Total Bilirubin AST ALT C-Reactive Protein Total Protein Albumin Triglycerides Amylase Lipase Urine WBC (Auto) Vancomycin Trough Crossmatch 12/24/17 12/25/17 12/25/17 Unknown 02:26 03:38 WBC RBC Hgb Hct MCV MCH MCHC RDW Plt Count Lymph % (Auto) Eos % (Auto) Owen # Eos # Baso # Seg Neutrophils % Seg Neuts % (Manual) Lymphocytes % (Manual) Monocytes % (Manual) Eosinophils % (Manual) Nucleated RBC % Seg Neutrophils # Seg Neutrophils # Man Lymphocytes # (Manual) Monocytes # (Manual) Eosinophils # (Manual) APTT POC ABG pH 7.503 H ABG pH POC ABG pCO2 POC ABG pO2 66 L ABG pO2 ABG HCO3 ABG O2 Saturation ABG Base Excess ABG Hemoglobin VBG pH Oxyhemoglobin Sodium Potassium 3.0 L Chloride Carbon Dioxide BUN Creatinine 0.5 L Glucose 166 H POC Glucose 106 H Lactic Acid Calcium 7.8 L Phosphorus Total Bilirubin AST ALT C-Reactive Protein Total Protein Albumin Triglycerides Amylase Lipase Urine WBC (Auto) Vancomycin Trough Crossmatch 12/25/17 12/25/17 12/25/17 04:58 12:58 15:06 WBC RBC Hgb Hct MCV MCH MCHC RDW Plt Count Lymph % (Auto) Eos % (Auto) Owen # Eos # Baso # Seg Neutrophils % Seg Neuts % (Manual) Lymphocytes % (Manual) Monocytes % (Manual) Eosinophils % (Manual) Nucleated RBC % Seg Neutrophils # Seg Neutrophils # Man Lymphocytes # (Manual) Monocytes # (Manual) Eosinophils # (Manual) APTT POC ABG pH ABG pH POC ABG pCO2 POC ABG pO2 ABG pO2 ABG HCO3 ABG O2 Saturation ABG Base Excess ABG Hemoglobin VBG pH Oxyhemoglobin Sodium Potassium Chloride Carbon Dioxide BUN Creatinine Glucose POC Glucose 113 H 118 H Lactic Acid Calcium Phosphorus Total Bilirubin AST ALT C-Reactive Protein Total Protein Albumin Triglycerides Amylase Lipase Urine WBC (Auto) Vancomycin Trough 22.5 H Crossmatch 12/25/17 12/25/17 12/25/17 17:59 21:33 Unknown WBC 20.5 H RBC 2.75 L Hgb 9.1 L Hct 27.1 L MCV 99 H MCH 33 H MCHC RDW Plt Count 126 L Lymph % (Auto) Eos % (Auto) Owen # Eos # Baso # Seg Neutrophils % Seg Neuts % (Manual) 89.0 H Lymphocytes % (Manual) 6.0 L Monocytes % (Manual) Eosinophils % (Manual) Nucleated RBC % Seg Neutrophils # Seg Neutrophils # Man 18.2 H Lymphocytes # (Manual) Monocytes # (Manual) Eosinophils # (Manual) APTT POC ABG pH ABG pH POC ABG pCO2 POC ABG pO2 ABG pO2 ABG HCO3 ABG O2 Saturation ABG Base Excess ABG Hemoglobin VBG pH Oxyhemoglobin Sodium Potassium Chloride Carbon Dioxide BUN Creatinine Glucose POC Glucose 145 H 167 H Lactic Acid Calcium Phosphorus Total Bilirubin AST ALT C-Reactive Protein Total Protein Albumin Triglycerides Amylase Lipase Urine WBC (Auto) Vancomycin Trough Crossmatch 12/25/17 12/26/17 12/26/17 Unknown 02:26 05:29 WBC RBC Hgb Hct MCV MCH MCHC RDW Plt Count Lymph % (Auto) Eos % (Auto) Owen # Eos # Baso # Seg Neutrophils % Seg Neuts % (Manual) Lymphocytes % (Manual) Monocytes % (Manual) Eosinophils % (Manual) Nucleated RBC % Seg Neutrophils # Seg Neutrophils # Man Lymphocytes # (Manual) Monocytes # (Manual) Eosinophils # (Manual) APTT POC ABG pH ABG pH POC ABG pCO2 POC ABG pO2 ABG pO2 ABG HCO3 ABG O2 Saturation ABG Base Excess ABG Hemoglobin VBG pH Oxyhemoglobin Sodium Potassium 2.8 L* Chloride Carbon Dioxide BUN Creatinine 0.6 L Glucose POC Glucose 167 H 216 H Lactic Acid Calcium 7.4 L Phosphorus Total Bilirubin AST ALT C-Reactive Protein Total Protein Albumin Triglycerides Amylase Lipase Urine WBC (Auto) Vancomycin Trough Crossmatch 12/26/17 12/26/17 12/26/17 10:21 14:30 18:35 WBC RBC Hgb Hct MCV MCH MCHC RDW Plt Count Lymph % (Auto) Eos % (Auto) Owen # Eos # Baso # Seg Neutrophils % Seg Neuts % (Manual) Lymphocytes % (Manual) Monocytes % (Manual) Eosinophils % (Manual) Nucleated RBC % Seg Neutrophils # Seg Neutrophils # Man Lymphocytes # (Manual) Monocytes # (Manual) Eosinophils # (Manual) APTT POC ABG pH ABG pH POC ABG pCO2 POC ABG pO2 ABG pO2 ABG HCO3 ABG O2 Saturation ABG Base Excess ABG Hemoglobin VBG pH Oxyhemoglobin Sodium Potassium Chloride Carbon Dioxide BUN Creatinine Glucose POC Glucose 164 H 157 H 146 H Lactic Acid Calcium Phosphorus Total Bilirubin AST ALT C-Reactive Protein Total Protein Albumin Triglycerides Amylase Lipase Urine WBC (Auto) Vancomycin Trough Crossmatch 12/26/17 12/26/17 12/27/17 21:21 Unknown 01:54 WBC RBC Hgb Hct MCV MCH MCHC RDW Plt Count Lymph % (Auto) Eos % (Auto) Owen # Eos # Baso # Seg Neutrophils % Seg Neuts % (Manual) Lymphocytes % (Manual) Monocytes % (Manual) Eosinophils % (Manual) Nucleated RBC % Seg Neutrophils # Seg Neutrophils # Man Lymphocytes # (Manual) Monocytes # (Manual) Eosinophils # (Manual) APTT POC ABG pH ABG pH POC ABG pCO2 POC ABG pO2 ABG pO2 ABG HCO3 ABG O2 Saturation ABG Base Excess ABG Hemoglobin VBG pH Oxyhemoglobin Sodium Potassium 3.0 L Chloride Carbon Dioxide BUN Creatinine 0.5 L Glucose 166 H POC Glucose 132 H 157 H Lactic Acid Calcium 7.8 L Phosphorus Total Bilirubin AST ALT C-Reactive Protein Total Protein Albumin Triglycerides Amylase Lipase Urine WBC (Auto) Vancomycin Trough Crossmatch 12/27/17 12/27/17 12/27/17 05:20 05:20 05:44 WBC 26.4 H RBC 2.83 L Hgb 9.3 L Hct 27.6 L MCV 98 H MCH 33 H MCHC RDW Plt Count Lymph % (Auto) Eos % (Auto) Owen # Eos # Baso # Seg Neutrophils % Seg Neuts % (Manual) 85.0 H Lymphocytes % (Manual) 5.0 L Monocytes % (Manual) Eosinophils % (Manual) Nucleated RBC % Seg Neutrophils # Seg Neutrophils # Man 22.4 H Lymphocytes # (Manual) Monocytes # (Manual) Eosinophils # (Manual) 0.5 H APTT POC ABG pH ABG pH POC ABG pCO2 POC ABG pO2 ABG pO2 ABG HCO3 ABG O2 Saturation ABG Base Excess ABG Hemoglobin VBG pH Oxyhemoglobin Sodium Potassium 2.3 L* D Chloride Carbon Dioxide BUN 7 L Creatinine 0.6 L Glucose 123 H POC Glucose 128 H Lactic Acid Calcium 8.1 L Phosphorus Total Bilirubin AST ALT C-Reactive Protein Total Protein Albumin Triglycerides Amylase Lipase Urine WBC (Auto) Vancomycin Trough Crossmatch 12/27/17 12/27/17 12/27/17 10:04 14:44 15:30 WBC RBC Hgb Hct MCV MCH MCHC RDW Plt Count Lymph % (Auto) Eos % (Auto) Owen # Eos # Baso # Seg Neutrophils % Seg Neuts % (Manual) Lymphocytes % (Manual) Monocytes % (Manual) Eosinophils % (Manual) Nucleated RBC % Seg Neutrophils # Seg Neutrophils # Man Lymphocytes # (Manual) Monocytes # (Manual) Eosinophils # (Manual) APTT POC ABG pH ABG pH POC ABG pCO2 POC ABG pO2 ABG pO2 ABG HCO3 ABG O2 Saturation ABG Base Excess ABG Hemoglobin VBG pH Oxyhemoglobin Sodium Potassium 3.1 L D Chloride Carbon Dioxide BUN Creatinine Glucose POC Glucose 115 H 128 H Lactic Acid Calcium Phosphorus Total Bilirubin AST ALT C-Reactive Protein Total Protein Albumin Triglycerides Amylase Lipase Urine WBC (Auto) Vancomycin Trough Crossmatch 12/28/17 12/28/17 12/28/17 00:39 02:13 05:17 WBC RBC Hgb Hct MCV MCH MCHC RDW Plt Count Lymph % (Auto) Eos % (Auto) Owen # Eos # Baso # Seg Neutrophils % Seg Neuts % (Manual) Lymphocytes % (Manual) Monocytes % (Manual) Eosinophils % (Manual) Nucleated RBC % Seg Neutrophils # Seg Neutrophils # Man Lymphocytes # (Manual) Monocytes # (Manual) Eosinophils # (Manual) APTT POC ABG pH ABG pH 7.497 H POC ABG pCO2 POC ABG pO2 ABG pO2 71.4 L ABG HCO3 29.9 H ABG O2 Saturation ABG Base Excess 6.2 H ABG Hemoglobin 7.9 L VBG pH Oxyhemoglobin 94.9 L Sodium Potassium Chloride Carbon Dioxide BUN Creatinine Glucose POC Glucose 112 H 108 H Lactic Acid Calcium Phosphorus Total Bilirubin AST ALT C-Reactive Protein Total Protein Albumin Triglycerides Amylase Lipase Urine WBC (Auto) Vancomycin Trough Crossmatch 12/28/17 12/28/17 12/28/17 08:47 08:47 09:10 WBC 28.1 H RBC 2.76 L Hgb 9.1 L Hct 27.0 L MCV 98 H MCH 33 H MCHC RDW Plt Count Lymph % (Auto) Eos % (Auto) Owen # Eos # Baso # Seg Neutrophils % Seg Neuts % (Manual) Lymphocytes % (Manual) Monocytes % (Manual) Eosinophils % (Manual) Nucleated RBC % Seg Neutrophils # Seg Neutrophils # Man Lymphocytes # (Manual) Monocytes # (Manual) Eosinophils # (Manual) APTT POC ABG pH ABG pH POC ABG pCO2 POC ABG pO2 ABG pO2 ABG HCO3 ABG O2 Saturation ABG Base Excess ABG Hemoglobin VBG pH Oxyhemoglobin Sodium Potassium 2.2 L* D Chloride Carbon Dioxide BUN 5 L Creatinine 0.5 L Glucose 106 H POC Glucose Lactic Acid Calcium 8.3 L Phosphorus 2.20 L Total Bilirubin AST ALT C-Reactive Protein Total Protein Albumin Triglycerides Amylase Lipase Urine WBC (Auto) Vancomycin Trough Crossmatch 12/28/17 12/28/17 12/28/17 13:28 14:22 18:48 WBC RBC Hgb Hct MCV MCH MCHC RDW Plt Count Lymph % (Auto) Eos % (Auto) Owen # Eos # Baso # Seg Neutrophils % Seg Neuts % (Manual) Lymphocytes % (Manual) Monocytes % (Manual) Eosinophils % (Manual) Nucleated RBC % Seg Neutrophils # Seg Neutrophils # Man Lymphocytes # (Manual) Monocytes # (Manual) Eosinophils # (Manual) APTT POC ABG pH ABG pH 7.476 H POC ABG pCO2 POC ABG pO2 ABG pO2 167.7 H ABG HCO3 30.9 H ABG O2 Saturation 99.1 H ABG Base Excess 6.7 H ABG Hemoglobin 8.5 L VBG pH Oxyhemoglobin Sodium Potassium Chloride Carbon Dioxide BUN Creatinine Glucose POC Glucose 141 H 129 H Lactic Acid Calcium Phosphorus Total Bilirubin AST ALT C-Reactive Protein Total Protein Albumin Triglycerides Amylase Lipase Urine WBC (Auto) Vancomycin Trough Crossmatch 12/28/17 12/29/17 12/29/17 21:22 02:45 05:11 WBC RBC Hgb Hct MCV MCH MCHC RDW Plt Count Lymph % (Auto) Eos % (Auto) Owen # Eos # Baso # Seg Neutrophils % Seg Neuts % (Manual) Lymphocytes % (Manual) Monocytes % (Manual) Eosinophils % (Manual) Nucleated RBC % Seg Neutrophils # Seg Neutrophils # Man Lymphocytes # (Manual) Monocytes # (Manual) Eosinophils # (Manual) APTT POC ABG pH ABG pH POC ABG pCO2 POC ABG pO2 ABG pO2 ABG HCO3 ABG O2 Saturation ABG Base Excess ABG Hemoglobin VBG pH Oxyhemoglobin Sodium Potassium Chloride Carbon Dioxide BUN Creatinine Glucose POC Glucose 123 H 138 H 138 H Lactic Acid Calcium Phosphorus Total Bilirubin AST ALT C-Reactive Protein Total Protein Albumin Triglycerides Amylase Lipase Urine WBC (Auto) Vancomycin Trough Crossmatch 12/29/17 12/29/17 12/29/17 05:50 08:04 08:04 WBC 20.8 H RBC 2.26 L Hgb 7.5 L Hct 22.7 L MCV 100 H MCH 33 H MCHC RDW Plt Count Lymph % (Auto) Eos % (Auto) Owen # Eos # Baso # Seg Neutrophils % Seg Neuts % (Manual) 93.0 H Lymphocytes % (Manual) 2.0 L Monocytes % (Manual) Eosinophils % (Manual) Nucleated RBC % Seg Neutrophils # Seg Neutrophils # Man 19.3 H Lymphocytes # (Manual) 0.4 L Monocytes # (Manual) Eosinophils # (Manual) 0.7 H APTT POC ABG pH ABG pH 7.467 H POC ABG pCO2 POC ABG pO2 ABG pO2 ABG HCO3 28.2 H ABG O2 Saturation ABG Base Excess 4.0 H ABG Hemoglobin < 5.1 L VBG pH Oxyhemoglobin Sodium Potassium 3.0 L D Chloride Carbon Dioxide BUN Creatinine 0.5 L Glucose 147 H POC Glucose Lactic Acid Calcium 7.8 L Phosphorus Total Bilirubin AST ALT C-Reactive Protein Total Protein 5.6 L Albumin 2.4 L Triglycerides Amylase Lipase Urine WBC (Auto) Vancomycin Trough Crossmatch 12/29/17 12/29/17 12/29/17 08:20 10:59 14:09 WBC RBC Hgb Hct MCV MCH MCHC RDW Plt Count Lymph % (Auto) Eos % (Auto) Owen # Eos # Baso # Seg Neutrophils % Seg Neuts % (Manual) Lymphocytes % (Manual) Monocytes % (Manual) Eosinophils % (Manual) Nucleated RBC % Seg Neutrophils # Seg Neutrophils # Man Lymphocytes # (Manual) Monocytes # (Manual) Eosinophils # (Manual) APTT POC ABG pH ABG pH POC ABG pCO2 POC ABG pO2 ABG pO2 ABG HCO3 ABG O2 Saturation ABG Base Excess ABG Hemoglobin VBG pH Oxyhemoglobin Sodium Potassium Chloride Carbon Dioxide BUN Creatinine Glucose POC Glucose 153 H 186 H 183 H Lactic Acid Calcium Phosphorus Total Bilirubin AST ALT C-Reactive Protein Total Protein Albumin Triglycerides Amylase Lipase Urine WBC (Auto) Vancomycin Trough Crossmatch 12/29/17 12/29/17 12/29/17 18:03 22:05 22:56 WBC RBC Hgb Hct MCV MCH MCHC RDW Plt Count Lymph % (Auto) Eos % (Auto) Owen # Eos # Baso # Seg Neutrophils % Seg Neuts % (Manual) Lymphocytes % (Manual) Monocytes % (Manual) Eosinophils % (Manual) Nucleated RBC % Seg Neutrophils # Seg Neutrophils # Man Lymphocytes # (Manual) Monocytes # (Manual) Eosinophils # (Manual) APTT POC ABG pH ABG pH POC ABG pCO2 POC ABG pO2 ABG pO2 ABG HCO3 ABG O2 Saturation ABG Base Excess ABG Hemoglobin VBG pH Oxyhemoglobin Sodium Potassium Chloride Carbon Dioxide BUN Creatinine Glucose POC Glucose 159 H 146 H 179 H Lactic Acid Calcium Phosphorus Total Bilirubin AST ALT C-Reactive Protein Total Protein Albumin Triglycerides Amylase Lipase Urine WBC (Auto) Vancomycin Trough Crossmatch 12/30/17 12/30/17 12/30/17 02:03 04:50 04:50 WBC 18.3 H RBC 2.22 L Hgb 7.4 L Hct 23.0 L MCV 104 H MCH 33 H MCHC RDW Plt Count 137 L Lymph % (Auto) 9.0 L Eos % (Auto) Owen # Eos # 0.5 H Baso # Seg Neutrophils % 84.9 H Seg Neuts % (Manual) Lymphocytes % (Manual) Monocytes % (Manual) Eosinophils % (Manual) Nucleated RBC % Seg Neutrophils # 15.6 H Seg Neutrophils # Man Lymphocytes # (Manual) Monocytes # (Manual) Eosinophils # (Manual) APTT POC ABG pH ABG pH POC ABG pCO2 POC ABG pO2 ABG pO2 ABG HCO3 ABG O2 Saturation ABG Base Excess ABG Hemoglobin VBG pH Oxyhemoglobin Sodium 147 H Potassium 3.1 L D Chloride 107.5 H Carbon Dioxide BUN Creatinine 0.5 L Glucose 120 H POC Glucose 118 H Lactic Acid Calcium 7.4 L Phosphorus Total Bilirubin AST ALT C-Reactive Protein Total Protein Albumin Triglycerides Amylase Lipase Urine WBC (Auto) Vancomycin Trough Crossmatch 12/30/17 12/30/17 12/30/17 05:04 13:53 17:33 WBC RBC Hgb Hct MCV MCH MCHC RDW Plt Count Lymph % (Auto) Eos % (Auto) Owen # Eos # Baso # Seg Neutrophils % Seg Neuts % (Manual) Lymphocytes % (Manual) Monocytes % (Manual) Eosinophils % (Manual) Nucleated RBC % Seg Neutrophils # Seg Neutrophils # Man Lymphocytes # (Manual) Monocytes # (Manual) Eosinophils # (Manual) APTT POC ABG pH ABG pH POC ABG pCO2 POC ABG pO2 ABG pO2 ABG HCO3 ABG O2 Saturation ABG Base Excess ABG Hemoglobin VBG pH Oxyhemoglobin Sodium Potassium Chloride Carbon Dioxide BUN Creatinine Glucose POC Glucose 150 H 113 H 145 H Lactic Acid Calcium Phosphorus Total Bilirubin AST ALT C-Reactive Protein Total Protein Albumin Triglycerides Amylase Lipase Urine WBC (Auto) Vancomycin Trough Crossmatch 12/31/17 12/31/17 12/31/17 01:54 03:15 03:15 WBC 17.1 H RBC 2.08 L Hgb 6.9 L Hct 20.6 L MCV 99 H MCH 33 H MCHC RDW 13.1 L Plt Count Lymph % (Auto) 10.5 L Eos % (Auto) Owen # Eos # 0.6 H Baso # Seg Neutrophils % 82.3 H Seg Neuts % (Manual) Lymphocytes % (Manual) Monocytes % (Manual) Eosinophils % (Manual) Nucleated RBC % Seg Neutrophils # 14.0 H Seg Neutrophils # Man Lymphocytes # (Manual) Monocytes # (Manual) Eosinophils # (Manual) APTT POC ABG pH ABG pH POC ABG pCO2 POC ABG pO2 ABG pO2 ABG HCO3 ABG O2 Saturation ABG Base Excess ABG Hemoglobin VBG pH Oxyhemoglobin Sodium Potassium 3.5 L Chloride Carbon Dioxide BUN Creatinine 0.6 L Glucose POC Glucose 69 L Lactic Acid Calcium 7.8 L Phosphorus Total Bilirubin AST ALT C-Reactive Protein Total Protein Albumin Triglycerides Amylase Lipase Urine WBC (Auto) Vancomycin Trough Crossmatch 12/31/17 12/31/17 12/31/17 05:15 09:25 10:17 WBC RBC Hgb Hct MCV MCH MCHC RDW Plt Count Lymph % (Auto) Eos % (Auto) Owen # Eos # Baso # Seg Neutrophils % Seg Neuts % (Manual) Lymphocytes % (Manual) Monocytes % (Manual) Eosinophils % (Manual) Nucleated RBC % Seg Neutrophils # Seg Neutrophils # Man Lymphocytes # (Manual) Monocytes # (Manual) Eosinophils # (Manual) APTT POC ABG pH ABG pH 7.516 H POC ABG pCO2 POC ABG pO2 ABG pO2 69.2 L ABG HCO3 28.7 H ABG O2 Saturation ABG Base Excess 5.3 H ABG Hemoglobin 6.6 L VBG pH Oxyhemoglobin 93.8 L Sodium Potassium Chloride Carbon Dioxide BUN Creatinine Glucose POC Glucose 143 H Lactic Acid Calcium Phosphorus Total Bilirubin AST ALT C-Reactive Protein Total Protein Albumin Triglycerides Amylase Lipase Urine WBC (Auto) Vancomycin Trough Crossmatch See Detail 12/31/17 12/31/17 12/31/17 14:20 18:30 21:40 WBC RBC Hgb Hct MCV MCH MCHC RDW Plt Count Lymph % (Auto) Eos % (Auto) Owen # Eos # Baso # Seg Neutrophils % Seg Neuts % (Manual) Lymphocytes % (Manual) Monocytes % (Manual) Eosinophils % (Manual) Nucleated RBC % Seg Neutrophils # Seg Neutrophils # Man Lymphocytes # (Manual) Monocytes # (Manual) Eosinophils # (Manual) APTT POC ABG pH ABG pH POC ABG pCO2 POC ABG pO2 ABG pO2 ABG HCO3 ABG O2 Saturation ABG Base Excess ABG Hemoglobin VBG pH Oxyhemoglobin Sodium Potassium Chloride Carbon Dioxide BUN Creatinine Glucose POC Glucose 175 H 137 H 182 H Lactic Acid Calcium Phosphorus Total Bilirubin AST ALT C-Reactive Protein Total Protein Albumin Triglycerides Amylase Lipase Urine WBC (Auto) Vancomycin Trough Crossmatch 12/31/17 01/01/18 01/01/18 23:34 02:09 04:00 WBC 16.4 H RBC 2.41 L Hgb 7.8 L Hct 23.6 L MCV 98 H MCH 33 H MCHC RDW Plt Count Lymph % (Auto) 10.7 L Eos % (Auto) Owen # Eos # 0.7 H Baso # 0.2 H Seg Neutrophils % 79.0 H Seg Neuts % (Manual) Lymphocytes % (Manual) Monocytes % (Manual) Eosinophils % (Manual) Nucleated RBC % Seg Neutrophils # 12.9 H Seg Neutrophils # Man Lymphocytes # (Manual) Monocytes # (Manual) Eosinophils # (Manual) APTT POC ABG pH ABG pH POC ABG pCO2 POC ABG pO2 ABG pO2 ABG HCO3 ABG O2 Saturation ABG Base Excess ABG Hemoglobin VBG pH Oxyhemoglobin Sodium Potassium Chloride Carbon Dioxide BUN Creatinine Glucose POC Glucose 132 H 117 H Lactic Acid Calcium Phosphorus Total Bilirubin AST ALT C-Reactive Protein Total Protein Albumin Triglycerides Amylase Lipase Urine WBC (Auto) Vancomycin Trough Crossmatch 01/01/18 01/01/18 01/01/18 04:00 04:04 05:32 WBC RBC Hgb Hct MCV MCH MCHC RDW Plt Count Lymph % (Auto) Eos % (Auto) Owen # Eos # Baso # Seg Neutrophils % Seg Neuts % (Manual) Lymphocytes % (Manual) Monocytes % (Manual) Eosinophils % (Manual) Nucleated RBC % Seg Neutrophils # Seg Neutrophils # Man Lymphocytes # (Manual) Monocytes # (Manual) Eosinophils # (Manual) APTT POC ABG pH ABG pH 7.458 H POC ABG pCO2 POC ABG pO2 ABG pO2 67.5 L ABG HCO3 27.5 H ABG O2 Saturation 94.4 L ABG Base Excess 3.4 H ABG Hemoglobin 7.8 L VBG pH Oxyhemoglobin 92.1 L Sodium Potassium Chloride Carbon Dioxide BUN Creatinine 0.4 L Glucose 129 H POC Glucose 129 H Lactic Acid Calcium 7.9 L Phosphorus Total Bilirubin AST ALT C-Reactive Protein Total Protein Albumin Triglycerides Amylase Lipase Urine WBC (Auto) Vancomycin Trough Crossmatch 01/01/18 01/01/18 01/01/18 10:10 12:38 17:27 WBC RBC Hgb Hct MCV MCH MCHC RDW Plt Count Lymph % (Auto) Eos % (Auto) Owen # Eos # Baso # Seg Neutrophils % Seg Neuts % (Manual) Lymphocytes % (Manual) Monocytes % (Manual) Eosinophils % (Manual) Nucleated RBC % Seg Neutrophils # Seg Neutrophils # Man Lymphocytes # (Manual) Monocytes # (Manual) Eosinophils # (Manual) APTT POC ABG pH ABG pH POC ABG pCO2 POC ABG pO2 ABG pO2 ABG HCO3 ABG O2 Saturation ABG Base Excess ABG Hemoglobin VBG pH Oxyhemoglobin Sodium Potassium Chloride Carbon Dioxide BUN Creatinine Glucose POC Glucose 155 H 179 H 152 H Lactic Acid Calcium Phosphorus Total Bilirubin AST ALT C-Reactive Protein Total Protein Albumin Triglycerides Amylase Lipase Urine WBC (Auto) Vancomycin Trough Crossmatch 01/01/18 01/02/18 01/02/18 21:36 01:42 04:10 WBC 12.1 H RBC 2.29 L Hgb 7.5 L Hct 22.7 L MCV 99 H MCH 33 H MCHC RDW Plt Count Lymph % (Auto) Eos % (Auto) 5.5 H Owen # 0.9 H Eos # 0.7 H Baso # Seg Neutrophils % Seg Neuts % (Manual) Lymphocytes % (Manual) Monocytes % (Manual) Eosinophils % (Manual) Nucleated RBC % Seg Neutrophils # 8.3 H Seg Neutrophils # Man Lymphocytes # (Manual) Monocytes # (Manual) Eosinophils # (Manual) APTT POC ABG pH ABG pH POC ABG pCO2 POC ABG pO2 ABG pO2 ABG HCO3 ABG O2 Saturation ABG Base Excess ABG Hemoglobin VBG pH Oxyhemoglobin Sodium Potassium Chloride Carbon Dioxide BUN Creatinine Glucose POC Glucose 118 H 117 H Lactic Acid Calcium Phosphorus Total Bilirubin AST ALT C-Reactive Protein Total Protein Albumin Triglycerides Amylase Lipase Urine WBC (Auto) Vancomycin Trough Crossmatch 01/02/18 01/02/18 01/02/18 04:10 04:57 13:42 WBC RBC Hgb Hct MCV MCH MCHC RDW Plt Count Lymph % (Auto) Eos % (Auto) Owen # Eos # Baso # Seg Neutrophils % Seg Neuts % (Manual) Lymphocytes % (Manual) Monocytes % (Manual) Eosinophils % (Manual) Nucleated RBC % Seg Neutrophils # Seg Neutrophils # Man Lymphocytes # (Manual) Monocytes # (Manual) Eosinophils # (Manual) APTT POC ABG pH ABG pH POC ABG pCO2 POC ABG pO2 ABG pO2 ABG HCO3 ABG O2 Saturation ABG Base Excess ABG Hemoglobin VBG pH Oxyhemoglobin Sodium Potassium Chloride 97.0 L Carbon Dioxide BUN Creatinine 0.4 L Glucose POC Glucose 107 H 133 H Lactic Acid Calcium 8.1 L Phosphorus Total Bilirubin AST ALT C-Reactive Protein Total Protein 6.0 L Albumin 2.5 L Triglycerides Amylase Lipase Urine WBC (Auto) Vancomycin Trough Crossmatch 01/02/18 01/02/18 01/03/18 17:33 22:11 02:18 WBC RBC Hgb Hct MCV MCH MCHC RDW Plt Count Lymph % (Auto) Eos % (Auto) Owen # Eos # Baso # Seg Neutrophils % Seg Neuts % (Manual) Lymphocytes % (Manual) Monocytes % (Manual) Eosinophils % (Manual) Nucleated RBC % Seg Neutrophils # Seg Neutrophils # Man Lymphocytes # (Manual) Monocytes # (Manual) Eosinophils # (Manual) APTT POC ABG pH ABG pH POC ABG pCO2 POC ABG pO2 ABG pO2 ABG HCO3 ABG O2 Saturation ABG Base Excess ABG Hemoglobin VBG pH Oxyhemoglobin Sodium Potassium Chloride Carbon Dioxide BUN Creatinine Glucose POC Glucose 146 H 171 H 162 H Lactic Acid Calcium Phosphorus Total Bilirubin AST ALT C-Reactive Protein Total Protein Albumin Triglycerides Amylase Lipase Urine WBC (Auto) Vancomycin Trough Crossmatch 01/03/18 01/03/18 01/03/18 04:56 05:21 17:20 WBC RBC Hgb Hct MCV MCH MCHC RDW Plt Count Lymph % (Auto) Eos % (Auto) Owen # Eos # Baso # Seg Neutrophils % Seg Neuts % (Manual) Lymphocytes % (Manual) Monocytes % (Manual) Eosinophils % (Manual) Nucleated RBC % Seg Neutrophils # Seg Neutrophils # Man Lymphocytes # (Manual) Monocytes # (Manual) Eosinophils # (Manual) APTT POC ABG pH ABG pH POC ABG pCO2 POC ABG pO2 ABG pO2 79.5 L ABG HCO3 31.4 H ABG O2 Saturation ABG Base Excess 6.3 H ABG Hemoglobin 10.4 L VBG pH Oxyhemoglobin 94.2 L Sodium Potassium Chloride Carbon Dioxide BUN Creatinine Glucose POC Glucose 163 H 153 H Lactic Acid Calcium Phosphorus Total Bilirubin AST ALT C-Reactive Protein Total Protein Albumin Triglycerides Amylase Lipase Urine WBC (Auto) Vancomycin Trough Crossmatch 01/03/18 01/03/18 01/04/18 17:50 19:52 00:40 WBC RBC Hgb Hct MCV MCH MCHC RDW Plt Count Lymph % (Auto) Eos % (Auto) Owen # Eos # Baso # Seg Neutrophils % Seg Neuts % (Manual) Lymphocytes % (Manual) Monocytes % (Manual) Eosinophils % (Manual) Nucleated RBC % Seg Neutrophils # Seg Neutrophils # Man Lymphocytes # (Manual) Monocytes # (Manual) Eosinophils # (Manual) APTT POC ABG pH ABG pH POC ABG pCO2 POC ABG pO2 ABG pO2 ABG HCO3 ABG O2 Saturation ABG Base Excess ABG Hemoglobin VBG pH Oxyhemoglobin Sodium Potassium Chloride Carbon Dioxide BUN Creatinine Glucose POC Glucose 157 H 147 H 158 H Lactic Acid Calcium Phosphorus Total Bilirubin AST ALT C-Reactive Protein Total Protein Albumin Triglycerides Amylase Lipase Urine WBC (Auto) Vancomycin Trough Crossmatch 01/04/18 01/04/18 01/04/18 04:01 05:13 06:12 WBC 11.5 H RBC 2.95 L Hgb 9.8 L Hct 29.5 L D MCV 100 H MCH 33 H MCHC RDW Plt Count Lymph % (Auto) Eos % (Auto) Owen # Eos # Baso # Seg Neutrophils % Seg Neuts % (Manual) Lymphocytes % (Manual) Monocytes % (Manual) Eosinophils % (Manual) 6.0 H Nucleated RBC % Seg Neutrophils # Seg Neutrophils # Man Lymphocytes # (Manual) Monocytes # (Manual) Eosinophils # (Manual) 0.7 H APTT POC ABG pH ABG pH 7.498 H POC ABG pCO2 POC ABG pO2 ABG pO2 129.5 H ABG HCO3 30.1 H ABG O2 Saturation ABG Base Excess 6.4 H ABG Hemoglobin 9.3 L VBG pH Oxyhemoglobin Sodium Potassium Chloride Carbon Dioxide BUN Creatinine Glucose POC Glucose 163 H Lactic Acid Calcium Phosphorus Total Bilirubin AST ALT C-Reactive Protein Total Protein Albumin Triglycerides Amylase Lipase Urine WBC (Auto) Vancomycin Trough Crossmatch 01/04/18 01/04/1818 06:12 10:55 14:29 WBC RBC Hgb Hct MCV MCH MCHC RDW Plt Count Lymph % (Auto) Eos % (Auto) Owen # Eos # Baso # Seg Neutrophils % Seg Neuts % (Manual) Lymphocytes % (Manual) Monocytes % (Manual) Eosinophils % (Manual) Nucleated RBC % Seg Neutrophils # Seg Neutrophils # Man Lymphocytes # (Manual) Monocytes # (Manual) Eosinophils # (Manual) APTT POC ABG pH ABG pH POC ABG pCO2 POC ABG pO2 ABG pO2 ABG HCO3 ABG O2 Saturation ABG Base Excess ABG Hemoglobin VBG pH Oxyhemoglobin Sodium Potassium Chloride Carbon Dioxide BUN Creatinine 0.5 L Glucose 174 H POC Glucose 187 H 144 H Lactic Acid Calcium Phosphorus Total Bilirubin AST 41 H ALT C-Reactive Protein Total Protein Albumin 2.9 L Triglycerides Amylase Lipase Urine WBC (Auto) Vancomycin Trough Crossmatch 01/04/18 01/04/18 01/05/18 17:25 21:56 01:59 WBC RBC Hgb Hct MCV MCH MCHC RDW Plt Count Lymph % (Auto) Eos % (Auto) Owen # Eos # Baso # Seg Neutrophils % Seg Neuts % (Manual) Lymphocytes % (Manual) Monocytes % (Manual) Eosinophils % (Manual) Nucleated RBC % Seg Neutrophils # Seg Neutrophils # Man Lymphocytes # (Manual) Monocytes # (Manual) Eosinophils # (Manual) APTT POC ABG pH ABG pH POC ABG pCO2 POC ABG pO2 ABG pO2 ABG HCO3 ABG O2 Saturation ABG Base Excess ABG Hemoglobin VBG pH Oxyhemoglobin Sodium Potassium Chloride Carbon Dioxide BUN Creatinine Glucose POC Glucose 156 H 171 H 162 H Lactic Acid Calcium Phosphorus Total Bilirubin AST ALT C-Reactive Protein Total Protein Albumin Triglycerides Amylase Lipase Urine WBC (Auto) Vancomycin Trough Crossmatch 01/05/18 01/05/18 01/05/18 03:50 06:00 06:07 WBC RBC Hgb Hct MCV MCH MCHC RDW Plt Count Lymph % (Auto) Eos % (Auto) Owen # Eos # Baso # Seg Neutrophils % Seg Neuts % (Manual) Lymphocytes % (Manual) Monocytes % (Manual) Eosinophils % (Manual) Nucleated RBC % Seg Neutrophils # Seg Neutrophils # Man Lymphocytes # (Manual) Monocytes # (Manual) Eosinophils # (Manual) APTT POC ABG pH ABG pH POC ABG pCO2 POC ABG pO2 ABG pO2 64.6 L ABG HCO3 30.2 H ABG O2 Saturation 91.3 L ABG Base Excess 5.5 H ABG Hemoglobin 10.1 L VBG pH Oxyhemoglobin 89.0 L Sodium Potassium Chloride Carbon Dioxide BUN Creatinine 0.4 L Glucose 144 H POC Glucose 136 H Lactic Acid Calcium Phosphorus Total Bilirubin AST ALT C-Reactive Protein Total Protein Albumin Triglycerides Amylase Lipase Urine WBC (Auto) Vancomycin Trough Crossmatch 01/05/18 01/05/18 01/05/18 10:46 14:03 17:31 WBC RBC Hgb Hct MCV MCH MCHC RDW Plt Count Lymph % (Auto) Eos % (Auto) Owen # Eos # Baso # Seg Neutrophils % Seg Neuts % (Manual) Lymphocytes % (Manual) Monocytes % (Manual) Eosinophils % (Manual) Nucleated RBC % Seg Neutrophils # Seg Neutrophils # Man Lymphocytes # (Manual) Monocytes # (Manual) Eosinophils # (Manual) APTT POC ABG pH ABG pH POC ABG pCO2 POC ABG pO2 ABG pO2 ABG HCO3 ABG O2 Saturation ABG Base Excess ABG Hemoglobin VBG pH Oxyhemoglobin Sodium Potassium Chloride Carbon Dioxide BUN Creatinine Glucose POC Glucose 147 H 141 H 192 H Lactic Acid Calcium Phosphorus Total Bilirubin AST ALT C-Reactive Protein Total Protein Albumin Triglycerides Amylase Lipase Urine WBC (Auto) Vancomycin Trough Crossmatch 01/05/18 01/05/18 01/06/18 22:12 Unknown 01:58 WBC RBC Hgb Hct MCV MCH MCHC RDW Plt Count Lymph % (Auto) Eos % (Auto) Owen # Eos # Baso # Seg Neutrophils % Seg Neuts % (Manual) Lymphocytes % (Manual) Monocytes % (Manual) Eosinophils % (Manual) Nucleated RBC % Seg Neutrophils # Seg Neutrophils # Man Lymphocytes # (Manual) Monocytes # (Manual) Eosinophils # (Manual) APTT POC ABG pH ABG pH 7.463 H POC ABG pCO2 POC ABG pO2 ABG pO2 74.0 L ABG HCO3 29.4 H ABG O2 Saturation ABG Base Excess 5.2 H ABG Hemoglobin 10.0 L VBG pH Oxyhemoglobin 93.4 L Sodium Potassium Chloride Carbon Dioxide BUN Creatinine Glucose POC Glucose 209 H 138 H Lactic Acid Calcium Phosphorus Total Bilirubin AST ALT C-Reactive Protein Total Protein Albumin Triglycerides Amylase Lipase Urine WBC (Auto) Vancomycin Trough Crossmatch 01/06/18 01/06/18 01/06/18 03:14 05:30 05:30 WBC 12.6 H RBC 3.16 L Hgb 10.4 L Hct 31.7 L MCV 100 H MCH 33 H MCHC RDW 15.5 H Plt Count Lymph % (Auto) Eos % (Auto) Owen # Eos # Baso # Seg Neutrophils % Seg Neuts % (Manual) 72.0 H Lymphocytes % (Manual) Monocytes % (Manual) 9.0 H Eosinophils % (Manual) Nucleated RBC % 1.0 H Seg Neutrophils # Seg Neutrophils # Man 9.1 H Lymphocytes # (Manual) Monocytes # (Manual) 1.1 H Eosinophils # (Manual) APTT POC ABG pH ABG pH POC ABG pCO2 POC ABG pO2 ABG pO2 ABG HCO3 28.8 H ABG O2 Saturation ABG Base Excess 4.2 H ABG Hemoglobin 9.3 L VBG pH Oxyhemoglobin 94.7 L Sodium 136 L Potassium Chloride 94.2 L Carbon Dioxide BUN Creatinine 0.4 L Glucose 146 H POC Glucose Lactic Acid Calcium Phosphorus Total Bilirubin AST ALT C-Reactive Protein Total Protein Albumin 3.1 L Triglycerides Amylase Lipase Urine WBC (Auto) Vancomycin Trough Crossmatch 01/06/18 01/06/18 01/06/18 05:42 10:00 14:40 WBC RBC Hgb Hct MCV MCH MCHC RDW Plt Count Lymph % (Auto) Eos % (Auto) Owen # Eos # Baso # Seg Neutrophils % Seg Neuts % (Manual) Lymphocytes % (Manual) Monocytes % (Manual) Eosinophils % (Manual) Nucleated RBC % Seg Neutrophils # Seg Neutrophils # Man Lymphocytes # (Manual) Monocytes # (Manual) Eosinophils # (Manual) APTT POC ABG pH ABG pH POC ABG pCO2 POC ABG pO2 ABG pO2 ABG HCO3 ABG O2 Saturation ABG Base Excess ABG Hemoglobin VBG pH Oxyhemoglobin Sodium Potassium Chloride Carbon Dioxide BUN Creatinine Glucose POC Glucose 158 H 155 H 115 H Lactic Acid Calcium Phosphorus Total Bilirubin AST ALT C-Reactive Protein Total Protein Albumin Triglycerides Amylase Lipase Urine WBC (Auto) Vancomycin Trough Crossmatch 01/06/18 01/06/18 01/07/18 17:45 21:59 05:29 WBC RBC Hgb Hct MCV MCH MCHC RDW Plt Count Lymph % (Auto) Eos % (Auto) Owen # Eos # Baso # Seg Neutrophils % Seg Neuts % (Manual) Lymphocytes % (Manual) Monocytes % (Manual) Eosinophils % (Manual) Nucleated RBC % Seg Neutrophils # Seg Neutrophils # Man Lymphocytes # (Manual) Monocytes # (Manual) Eosinophils # (Manual) APTT POC ABG pH ABG pH POC ABG pCO2 POC ABG pO2 ABG pO2 ABG HCO3 ABG O2 Saturation ABG Base Excess ABG Hemoglobin VBG pH Oxyhemoglobin Sodium Potassium Chloride Carbon Dioxide BUN Creatinine Glucose POC Glucose 156 H 177 H 179 H Lactic Acid Calcium Phosphorus Total Bilirubin AST ALT C-Reactive Protein Total Protein Albumin Triglycerides Amylase Lipase Urine WBC (Auto) Vancomycin Trough Crossmatch 01/07/18 01/07/18 01/07/18 10:00 14:32 18:05 WBC RBC Hgb Hct MCV MCH MCHC RDW Plt Count Lymph % (Auto) Eos % (Auto) Owen # Eos # Baso # Seg Neutrophils % Seg Neuts % (Manual) Lymphocytes % (Manual) Monocytes % (Manual) Eosinophils % (Manual) Nucleated RBC % Seg Neutrophils # Seg Neutrophils # Man Lymphocytes # (Manual) Monocytes # (Manual) Eosinophils # (Manual) APTT POC ABG pH ABG pH POC ABG pCO2 POC ABG pO2 ABG pO2 ABG HCO3 ABG O2 Saturation ABG Base Excess ABG Hemoglobin VBG pH Oxyhemoglobin Sodium Potassium Chloride Carbon Dioxide BUN Creatinine Glucose POC Glucose 131 H 177 H 143 H Lactic Acid Calcium Phosphorus Total Bilirubin AST ALT C-Reactive Protein Total Protein Albumin Triglycerides Amylase Lipase Urine WBC (Auto) Vancomycin Trough Crossmatch 01/07/18 01/08/18 01/08/18 22:11 02:26 05:37 WBC RBC Hgb Hct MCV MCH MCHC RDW Plt Count Lymph % (Auto) Eos % (Auto) Owen # Eos # Baso # Seg Neutrophils % Seg Neuts % (Manual) Lymphocytes % (Manual) Monocytes % (Manual) Eosinophils % (Manual) Nucleated RBC % Seg Neutrophils # Seg Neutrophils # Man Lymphocytes # (Manual) Monocytes # (Manual) Eosinophils # (Manual) APTT POC ABG pH ABG pH POC ABG pCO2 POC ABG pO2 ABG pO2 ABG HCO3 ABG O2 Saturation ABG Base Excess ABG Hemoglobin VBG pH Oxyhemoglobin Sodium Potassium Chloride Carbon Dioxide BUN Creatinine Glucose POC Glucose 133 H 194 H 106 H Lactic Acid Calcium Phosphorus Total Bilirubin AST ALT C-Reactive Protein Total Protein Albumin Triglycerides Amylase Lipase Urine WBC (Auto) Vancomycin Trough Crossmatch 01/08/18 09:41 WBC RBC Hgb Hct MCV MCH MCHC RDW Plt Count Lymph % (Auto) Eos % (Auto) Owen # Eos # Baso # Seg Neutrophils % Seg Neuts % (Manual) Lymphocytes % (Manual) Monocytes % (Manual) Eosinophils % (Manual) Nucleated RBC % Seg Neutrophils # Seg Neutrophils # Man Lymphocytes # (Manual) Monocytes # (Manual) Eosinophils # (Manual) APTT POC ABG pH ABG pH POC ABG pCO2 POC ABG pO2 ABG pO2 ABG HCO3 ABG O2 Saturation ABG Base Excess ABG Hemoglobin VBG pH Oxyhemoglobin Sodium Potassium Chloride Carbon Dioxide BUN Creatinine Glucose POC Glucose 142 H Lactic Acid Calcium Phosphorus Total Bilirubin AST ALT C-Reactive Protein Total Protein Albumin Triglycerides Amylase Lipase Urine WBC (Auto) Vancomycin Trough Crossmatch
[2018-01-08 11:29] LABS: BUN/Creatinine Ratio 28; Blood Urea Nitrogen 11 mg/dL (9-20); Calcium 9.4 mg/dL (8.4-10.2); Hemolysis Index 10
--- NOTE | 2018-01-08 12:40 | Event Note ---
Date: 01/08/18 I stopped by today to see if the had any questions. She said she wanted to see how the breathing trial went today. She had no questions and she has not made any decisions yet. I offered that I was available if she should have any questions or concerns.
--- NOTE | 2018-01-08 13:38 | Progress Note ---
Assessment and Plan Assessment and plan: Acute hypoxic hypercapnic respiratory failure : Still intubated, on ventilator Vent dependent, unable to wean Continue Vent support, pulmonary following Considering tracheostomy and PEG. Anemia; s/p 1 Unit PRBC this admission. Hgb 10.5 today Sepsis Off antibiotics ,s/p Zyvox, Ccefepime and Flagyl, ID following Aspiration pneumonia. Completed Antibiotics ARDS Alcohol abuse: Continue thiamine, Librium as needed Thrombocytopenia, resolved. Plt count 301 today Moderate to Severe protein calorie malnutrition; nutrition supplements, tube feeding. Hypotension resolved. Off Levophed Diabetes mellitus type 2. On Lantus and sliding scale. DVT prophylaxis: Lovenox and SCDs Discussed with his at bedside. History Interval history: Patient still intubated, Still on ventilator Hospitalist Physical - Physical exam Narrative exam: Gen appearance: Not in acute distress, lying in bed, Obese,intubated HEENT:Normocephalic, atraumatic Neck:supple, no JVD Lungs: Clear to auscultation bilaterally, no crackles , no wheeze Heart: S1 and S2 regular, no murmurs, rubs or gallop Abdomen: soft, non tender, non distended, normal bowel sounds, Ext: No edema, no clubbing, no cyanosis. Neuro: Intubated, sedated, - Constitutional Vitals: Temp Pulse Resp BP Pulse Ox 97.9 F 89 36 H 106/70 97 01/08/18 08:00 01/08/18 13:00 01/08/18 13:00 01/08/18 13:00 01/08/18 13:00 General appearance: Present: obese, other (intubated on vent) Results - Labs CBC & Chem 7: 01/08/18 10:45 01/08/18 10:45 Labs: Laboratory Last Values WBC 11.6 K/mm3 (4.5-11.0) H 01/08/18 10:45 RBC 3.21 M/mm3 (3.65-5.03) L 01/08/18 10:45 Hgb 10.5 gm/dl (11.8-15.2) L 01/08/18 10:45 Hct 32.0 % (35.5-45.6) L 01/08/18 10:45 MCV 100 fl (84-94) H 01/08/18 10:45 MCH 33 pg (28-32) H 01/08/18 10:45 MCHC 33 % (32-34) 01/08/18 10:45 RDW 15.7 % (13.2-15.2) H 01/08/18 10:45 Plt Count 301 K/mm3 (140-440) 01/08/18 10:45 Lymph % (Auto) 18.5 % (13.4-35.0) 01/02/18 04:10 [place] % (Auto) 7.1 % (0.0-7.3) 01/02/18 04:10 Eos % (Auto) 5.5 % (0.0-4.3) H 01/02/18 04:10 Baso % (Auto) 0.3 % (0.0-1.8) 01/02/18 04:10 Lymph # 2.2 K/mm3 (1.2-5.4) 01/02/18 04:10 [place] # 0.9 K/mm3 (0.0-0.8) H 01/02/18 04:10 Eos # 0.7 K/mm3 (0.0-0.4) H 01/02/18 04:10 Baso # 0.0 K/mm3 (0.0-0.1) 01/02/18 04:10 Add Manual Diff Complete 01/06/18 05:30 Total Counted 100 01/06/18 05:30 Seg Neutrophils % 68.6 % (40.0-70.0) 01/02/18 04:10 Seg Neuts % (Manual) 72.0 % (40.0-70.0) H 01/06/18 05:30 Band Neutrophils % 0 % 01/06/18 05:30 Lymphocytes % (Manual) 17.0 % (13.4-35.0) 01/06/18 05:30 Reactive Lymphs % (Man) 0 % 01/06/18 05:30 Monocytes % (Manual) 9.0 % (0.0-7.3) H 01/06/18 05:30 Eosinophils % (Manual) 2.0 % (0.0-4.3) 01/06/18 05:30 Basophils % (Manual) 0 % (0.0-1.8) 01/06/18 05:30 Metamyelocytes % 0 % 01/06/18 05:30 Myelocytes % 0 % 01/06/18 05:30 Promyelocytes % 0 % 01/06/18 05:30 Blast Cells % 0 % 01/06/18 05:30 Nucleated RBC % 1.0 % (0.0-0.9) H 01/06/18 05:30 Seg Neutrophils # 8.3 K/mm3 (1.8-7.7) H 01/02/18 04:10 Seg Neutrophils # Man 9.1 K/mm3 (1.8-7.7) H 01/06/18 05:30 Band Neutrophils # 0.0 K/mm3 01/06/18 05:30 Lymphocytes # (Manual) 2.1 K/mm3 (1.2-5.4) 01/06/18 05:30 Abs React Lymphs (Man) 0.0 K/mm3 01/06/18 05:30 Monocytes # (Manual) 1.1 K/mm3 (0.0-0.8) H 01/06/18 05:30 Eosinophils # (Manual) 0.3 K/mm3 (0.0-0.4) 01/06/18 05:30 Basophils # (Manual) 0.0 K/mm3 (0.0-0.1) 01/06/18 05:30 Metamyelocytes # 0.0 K/mm3 01/06/18 05:30 Myelocytes # 0.0 K/mm3 01/06/18 05:30 Promyelocytes # 0.0 K/mm3 01/06/18 05:30 Blast Cells # 0.0 K/mm3 01/06/18 05:30 Pathologist Review 12/23/17 09:25 WBC Morphology Not Reportable 01/06/18 05:30 Hypersegmented Neuts Not Reportable 01/06/18 05:30 Hyposegmented Neuts Not Reportable 01/06/18 05:30 Hypogranular Neuts Not Reportable 01/06/18 05:30 Smudge Cells Not Reportable 01/06/18 05:30 Toxic Granulation Not Reportable 01/06/18 05:30 Toxic Vacuolation Not Reportable 01/06/18 05:30 Dohle Bodies Not Reportable 01/06/18 05:30 Pelger-Huet Anomaly Not Reportable 01/06/18 05:30 Mary Rods Not Reportable 01/06/18 05:30 Platelet Estimate Appears normal 01/06/18 05:30 Clumped Platelets Not Reportable 01/06/18 05:30 Plt Clumps, EDTA Not Reportable 01/06/18 05:30 Large Platelets Not Reportable 01/06/18 05:30 Giant Platelets Not Reportable 01/06/18 05:30 Platelet Satelliting Not Reportable 01/06/18 05:30 Plt Morphology Comment Not Reportable 01/06/18 05:30 RBC Morphology Not Reportable 01/06/18 05:30 Dimorphic RBCs Not Reportable 01/06/18 05:30 Polychromasia 1+ 01/06/18 05:30 Hypochromasia Not Reportable 01/06/18 05:30 Poikilocytosis Not Reportable 01/06/18 05:30 Anisocytosis 1+ 01/06/18 05:30 Microcytosis Not Reportable 01/06/18 05:30 Macrocytosis Few 01/06/18 05:30 Spherocytes Not Reportable 01/06/18 05:30 Pappenheimer Bodies Not Reportable 01/06/18 05:30 Sickle Cells Not Reportable 01/06/18 05:30 Target Cells Not Reportable 01/06/18 05:30 Tear Drop Cells Not Reportable 01/06/18 05:30 Ovalocytes Not Reportable 01/06/18 05:30 Stomatocytes 1+ 01/06/18 05:30 Helmet Cells Not Reportable 01/06/18 05:30 [place] Bodies Not Reportable 01/06/18 05:30 [place] Rings Not Reportable 01/06/18 05:30 [place] Cells Not Reportable 01/06/18 05:30 Bite Cells Not Reportable 01/06/18 05:30 Crenated Cell Not Reportable 01/06/18 05:30 Elliptocytes Not Reportable 01/06/18 05:30 Acanthocytes (Spur) Not Reportable 01/06/18 05:30 Rouleaux Not Reportable 01/06/18 05:30 Hemoglobin C Crystals Not Reportable 01/06/18 05:30 Schistocytes Not Reportable 01/06/18 05:30 Malaria parasites Not Reportable 01/06/18 05:30 Vipul Bodies Not Reportable 01/06/18 05:30 Hem Pathologist Commnt No 01/06/18 05:30 PT 14.9 Sec. (12.2-14.9) 12/15/17 04:05 INR 1.11 (0.87-1.13) 12/15/17 04:05 APTT 20.9 Sec. (24.2-36.6) L 12/15/17 04:05 POC ABG pH 7.503 (7.35-7.45) H 12/25/17 03:38 ABG pH 7.441 pH Units (7.350-7.450) 01/06/18 03:14 POC ABG pCO2 35.8 (35-45) 12/25/17 03:38 ABG pCO2 43.2 mm Hg 01/06/18 03:14 POC ABG pO2 66 (80-105) L 12/25/17 03:38 ABG pO2 84.9 mm Hg (80.0-90.0) 01/06/18 03:14 POC ABG HCO3 28.1 12/25/17 03:38 ABG HCO3 28.8 mmol/L (20.0-26.0) H 01/06/18 03:14 POC ABG Total CO2 29 12/25/17 03:38 POC ABG O2 Sat 95 12/25/17 03:38 ABG O2 Saturation 97.0 % (95.0-99.0) 01/06/18 03:14 ABG O2 Content 12.6 (0.0-44) 01/06/18 03:14 POC ABG Base Excess 5 12/25/17 03:38 ABG Base Excess 4.2 mmol/L (-2.0-3.0) H 01/06/18 03:14 ABG Hemoglobin 9.3 gm/dl (14.0-18.0) L 01/06/18 03:14 ABG Carboxyhemoglobin 2.0 % (0.0-5.0) 01/06/18 03:14 ABG Methemoglobin 0.4 % (0.0-1.5) 01/06/18 03:14 VBG pH 7.472 (7.320-7.420) H 12/12/17 19:18 Oxyhemoglobin 94.7 % (95.0-99.0) L 01/06/18 03:14 FiO2 30 % 01/06/18 03:14 Sodium 137 mmol/L (137-145) 01/08/18 10:45 Potassium 4.1 mmol/L (3.6-5.0) 01/08/18 10:45 Chloride 96.4 mmol/L (98-107) L 01/08/18 10:45 Carbon Dioxide 26 mmol/L (22-30) 01/08/18 10:45 Anion Gap 19 mmol/L 01/08/18 10:45 BUN 11 mg/dL (9-20) 01/08/18 10:45 Creatinine 0.4 mg/dL (0.8-1.5) L 01/08/18 10:45 Estimated GFR > 60 ml/min 01/08/18 10:45 BUN/Creatinine Ratio 28 % 01/08/18 10:45 Glucose 146 mg/dL (75-100) H 01/08/18 10:45 POC Glucose 142 (70-105) H 01/08/18 09:41 Lactic Acid 2.00 mmol/L (0.7-2.0) 12/13/17 19:38 Calcium 9.4 mg/dL (8.4-10.2) 01/08/18 10:45 Phosphorus 3.10 mg/dL (2.5-4.5) 01/06/18 05:30 Magnesium 1.90 mg/dL (1.7-2.3) 01/06/18 05:30 Total Bilirubin 0.40 mg/dL (0.1-1.2) 01/06/18 05:30 AST 30 units/L (5-40) 01/06/18 05:30 ALT 42 units/L (7-56) 01/06/18 05:30 Alkaline Phosphatase 74 units/L (35-129) 01/06/18 05:30 C-Reactive Protein 7.10 mg/dL (0.00-1.30) H 12/20/17 13:40 NT-Pro-B Natriuret Pep 409.9 pg/mL (0-450) 12/12/17 19:02 Total Protein 7.5 g/dL (6.3-8.2) 01/06/18 05:30 Albumin 3.1 g/dL (3.9-5) L 01/06/18 05:30 Albumin/Globulin Ratio 0.7 % 01/06/18 05:30 Triglycerides 1042 mg/dL (2-149) H 12/20/17 13:40 Amylase 20 units/L (27-131) L 12/13/17 13:47 Lipase 9 units/L (13-60) L 12/13/17 13:47 Urine Color [place] (Yellow) 12/15/17 17:00 Urine Turbidity Hazy (Clear) 12/15/17 17:00 Urine pH 6.0 (5.0-7.0) 12/15/17 17:[address] [place] 1.027 (1.003-1.030) 12/15/17 17:00 Urine Protein 30 mg/dl mg/dL (Negative) 12/15/17 17:00 Urine Glucose (UA) Neg mg/dL (Negative) 12/15/17 17:00 Urine Ketones Tr mg/dL (Negative) 12/15/17 17:00 Urine Blood Lg (Negative) 12/15/17 17:00 Urine Nitrite Neg (Negative) 12/15/17 17:00 Urine Bilirubin Neg (Negative) 12/15/17 17:00 Urine Ictotest Positive (Negative) 12/12/17 20:42 Urine Urobilinogen < 2.0 mg/dL (<2.0) 12/15/17 17:00 Ur Leukocyte Esterase Tr (Negative) 12/15/17 17:00 Urine WBC (Auto) 38.0 /HPF (0.0-6.0) H 12/15/17 17:00 Urine RBC (Auto) 65.0 /HPF (0.0-6.0) 12/15/17 17:00 U Epithel Cells (Auto) < 1.0 /HPF (0-13.0) 12/12/17 20:42 Urine Bacteria (Auto) 1+ /HPF (Negative) 12/15/17 17:00 Urine Mucus 1+ /HPF 12/12/17 20:42 Vancomycin Trough 22.5 ug/mL (5.0-20.0) H 12/25/17 12:58 JERMAIN Screen Negative (Negative) 12/18/17 16:44 Proteinase 3 (PR3) Ab <1.0 AI (<1.0) 12/18/17 16:33 Myeloperoxidase Ab <1.0 AI (<1.0) 12/18/17 16:33 Complement C3 113 mg/dL (82-185) 12/18/17 16:33 Complement C4 15 mg/dL (15-53) 12/18/17 16:33 Hepatitis A IgM Ab Non-reactive (NonReactive) 12/20/17 13:40 Hep Bs Antigen Non-reactive (Negative) 12/20/17 13:40 Hep B Core IgM Ab Non-reactive (NonReactive) 12/20/17 13:40 Hepatitis C Antibody Non-reactive (NonReactive) 12/20/17 13:40 HIV 1&2 Antibody Rapid Non react (Non React) 12/20/17 13:40 HIV P24 Antigen Non react (Non React) 12/20/17 13:40 Influenza A (Rapid) Negative (Negative) 12/12/17 22:00 Influenza B (Rapid) Negative (Negative) 12/12/17 22:00 Urine Legionella Ag Not detected (Not Detected) 12/14/17 16:15 Miscellaneous Test Flexitest 1 12/14/17 16:15 Blood Type O POSITIVE 12/31/17 09:25 Antibody Screen Negative 12/31/17 09:25 Crossmatch See Detail 12/31/17 09:25
[2018-01-08] MEDS: LOVENOX SUB-Q SCH (21:41)
[2018-01-09] MEDS: LIBRIUM PO SCH ×5 (00:16→23:55)
[2018-01-09] MEDS: HumaLOG SUB-Q SCH ×6 (02:15→22:07)
[2018-01-09 04:54] LABS: Hematocrit 31.7 % (35.5-45.6); Hemoglobin 10.9 gm/dl (11.8-15.2); Mean Corpuscular HGB Conc 34 % (32-34); Mean Corpuscular Hemoglobin 34 pg (28-32); Mean Corpuscular Volume 99 fl (84-94); Platelet Count 304 K/mm3 (140-440); Red Blood Count 3.21 M/mm3 (3.65-5.03); Red Cell Distribution Width 15.8 % (13.2-15.2)
[2018-01-09 05:07] LABS: BUN/Creatinine Ratio 26; Blood Urea Nitrogen 13 mg/dL (9-20); Calcium 9.6 mg/dL (8.4-10.2); Hemolysis Index 0
[2018-01-09] MEDS ORDERED: TYLENOL PR PRN (05:24)
[2018-01-09] MEDS: DUONEB *Not for PRN Use IH SCH ×3 (08:07→20:46)
--- NOTE | 2018-01-09 09:05 | Progress Note ---
Assessment and Plan Assessment and plan: Acute hypoxic hypercapnic respiratory failure : Still intubated, on ventilator Vent dependent, unable to wean Continue Vent support, pulmonary following Considering tracheostomy and PEG. has not decided yet. Says she has to talk to family Anemia; s/p 1 Unit PRBC this admission. Hgb 10.9 today Sepsis Off antibiotics ,s/p Zyvox, Ccefepime and Flagyl, ID following Aspiration pneumonia. Completed Antibiotics ARDS Alcohol abuse: Continue thiamine, Librium as needed Thrombocytopenia, resolved. Plt count normal Moderate to Severe protein calorie malnutrition; nutrition supplements, tube feeding. Hypotension resolved. Off Levophed Diabetes mellitus type 2. On Lantus and sliding scale. DVT prophylaxis: Lovenox and SCDs Discussed with his at bedside. History Interval history: Patient still intubated, Still on ventilator Hospitalist Physical - Physical exam Narrative exam: Gen appearance: Not in acute distress, lying in bed, Obese,intubated HEENT:Normocephalic, atraumatic Neck:supple, no JVD Lungs: Clear to auscultation bilaterally, no crackles , no wheeze Heart: S1 and S2 regular, no murmurs, rubs or gallop Abdomen: soft, non tender, non distended, normal bowel sounds, Ext: No edema, no clubbing, no cyanosis. Neuro: Intubated, sedated, - Constitutional Vitals: Temp Pulse Resp BP Pulse Ox 98.8 F 100 H 39 H 115/77 95 01/09/18 07:49 01/09/18 08:30 01/09/18 08:30 01/09/18 08:30 01/09/18 08:30 General appearance: Present: obese, other (intubated on vent) Results - Labs CBC & Chem 7: 01/09/18 04:30 01/09/18 04:30 Labs: Laboratory Last Values WBC 9.0 K/mm3 (4.5-11.0) 01/09/18 04:30 RBC 3.21 M/mm3 (3.65-5.03) L 01/09/18 04:30 Hgb 10.9 gm/dl (11.8-15.2) L 01/09/18 04:30 Hct 31.7 % (35.5-45.6) L 01/09/18 04:30 MCV 99 fl (84-94) H 04/12/18 04:30 MCH 34 pg (28-32) H 01/09/18 04:30 MCHC 34 % (32-34) 01/09/18 04:30 RDW 15.8 % (13.2-15.2) H 01/09/18 04:30 Plt Count 304 K/mm3 (140-440) 01/09/18 04:30 Lymph % (Auto) 18.5 % (13.4-35.0) 01/02/18 04:10 [place] % (Auto) 7.1 % (0.0-7.3) 01/02/18 04:10 Eos % (Auto) 5.5 % (0.0-4.3) H 01/02/18 04:10 Baso % (Auto) 0.3 % (0.0-1.8) 01/02/18 04:10 Lymph # 2.2 K/mm3 (1.2-5.4) 01/02/18 04:10 [place] # 0.9 K/mm3 (0.0-0.8) H 01/02/18 04:10 Eos # 0.7 K/mm3 (0.0-0.4) H 01/02/18 04:10 Baso # 0.0 K/mm3 (0.0-0.1) 01/02/18 04:10 Add Manual Diff Complete 01/06/18 05:30 Total Counted 100 01/06/18 05:30 Seg Neutrophils % 68.6 % (40.0-70.0) 01/02/18 04:10 Seg Neuts % (Manual) 72.0 % (40.0-70.0) H 01/06/18 05:30 Band Neutrophils % 0 % 01/06/18 05:30 Lymphocytes % (Manual) 17.0 % (13.4-35.0) 01/06/18 05:30 Reactive Lymphs % (Man) 0 % 01/06/18 05:30 Monocytes % (Manual) 9.0 % (0.0-7.3) H 01/06/18 05:30 Eosinophils % (Manual) 2.0 % (0.0-4.3) 01/06/18 05:30 Basophils % (Manual) 0 % (0.0-1.8) 01/06/18 05:30 Metamyelocytes % 0 % 01/06/18 05:30 Myelocytes % 0 % 01/06/18 05:30 Promyelocytes % 0 % 01/06/18 05:30 Blast Cells % 0 % 01/06/18 05:30 Nucleated RBC % 1.0 % (0.0-0.9) H 01/06/18 05:30 Seg Neutrophils # 8.3 K/mm3 (1.8-7.7) H 01/02/18 04:10 Seg Neutrophils # Man 9.1 K/mm3 (1.8-7.7) H 01/06/18 05:30 Band Neutrophils # 0.0 K/mm3 01/06/18 05:30 Lymphocytes # (Manual) 2.1 K/mm3 (1.2-5.4) 01/06/18 05:30 Abs React Lymphs (Man) 0.0 K/mm3 01/06/18 05:30 Monocytes # (Manual) 1.1 K/mm3 (0.0-0.8) H 01/06/18 05:30 Eosinophils # (Manual) 0.3 K/mm3 (0.0-0.4) 01/06/18 05:30 Basophils # (Manual) 0.0 K/mm3 (0.0-0.1) 01/06/18 05:30 Metamyelocytes # 0.0 K/mm3 01/06/18 05:30 Myelocytes # 0.0 K/mm3 01/06/18 05:30 Promyelocytes # 0.0 K/mm3 01/06/18 05:30 Blast Cells # 0.0 K/mm3 01/06/18 05:30 Pathologist Review 12/23/17 09:25 WBC Morphology Not Reportable 01/06/18 05:30 Hypersegmented Neuts Not Reportable 01/06/18 05:30 Hyposegmented Neuts Not Reportable 01/06/18 05:30 Hypogranular Neuts Not Reportable 01/06/18 05:30 Smudge Cells Not Reportable 01/06/18 05:30 Toxic Granulation Not Reportable 01/06/18 05:30 Toxic Vacuolation Not Reportable 01/06/18 05:30 Dohle Bodies Not Reportable 01/06/18 05:30 Pelger-Huet Anomaly Not Reportable 01/06/18 05:30 Mary Rods Not Reportable 01/06/18 05:30 Platelet Estimate Appears normal 01/06/18 05:30 Clumped Platelets Not Reportable 01/06/18 05:30 Plt Clumps, EDTA Not Reportable 01/06/18 05:30 Large Platelets Not Reportable 01/06/18 05:30 Giant Platelets Not Reportable 01/06/18 05:30 Platelet Satelliting Not Reportable 01/06/18 05:30 Plt Morphology Comment Not Reportable 01/06/18 05:30 RBC Morphology Not Reportable 01/06/18 05:30 Dimorphic RBCs Not Reportable 01/06/18 05:30 Polychromasia 1+ 01/06/18 05:30 Hypochromasia Not Reportable 01/06/18 05:30 Poikilocytosis Not Reportable 01/06/18 05:30 Anisocytosis 1+ 01/06/18 05:30 Microcytosis Not Reportable 01/06/18 05:30 Macrocytosis Few 01/06/18 05:30 Spherocytes Not Reportable 01/06/18 05:30 Pappenheimer Bodies Not Reportable 01/06/18 05:30 Sickle Cells Not Reportable 01/06/18 05:30 Target Cells Not Reportable 01/06/18 05:30 Tear Drop Cells Not Reportable 01/06/18 05:30 Ovalocytes Not Reportable 01/06/18 05:30 Stomatocytes 1+ 01/06/18 05:30 Helmet Cells Not Reportable 01/06/18 05:30 [place]ce[place] Bodies Not Reportable 01/06/18 05:30 [place] Rings Not Reportable 01/06/18 05:30 [place] Cells Not Reportable 01/06/18 05:30 Bite Cells Not Reportable 01/06/18 05:30 Crenated Cell Not Reportable 01/06/18 05:30 Elliptocytes Not Reportable 01/06/18 05:30 Acanthocytes (Spur) Not Reportable 01/06/18 05:30 Rouleaux Not Reportable 01/06/18 05:30 Hemoglobin C Crystals Not Reportable 01/06/18 05:30 Schistocytes Not Reportable 01/06/18 05:30 Malaria parasites Not Reportable 01/06/18 05:30 Vipul Bodies Not Reportable 01/06/18 05:30 Hem Pathologist Commnt No 01/06/18 05:30 PT 14.9 Sec. (12.2-14.9) 12/15/17 04:05 INR 1.11 (0.87-1.13) 12/15/17 04:05 APTT 20.9 Sec. (24.2-36.6) L 12/15/17 04:05 POC ABG pH 7.503 (7.35-7.45) H 12/25/17 03:38 ABG pH 7.441 pH Units (7.350-7.450) 01/06/18 03:14 POC ABG pCO2 35.8 (35-45) 12/25/17 03:38 ABG pCO2 43.2 mm Hg 01/06/18 03:14 POC ABG pO2 66 (80-105) L 12/25/17 03:38 ABG pO2 84.9 mm Hg (80.0-90.0) 01/06/18 03:14 POC ABG HCO3 28.1 12/25/17 03:38 ABG HCO3 28.8 mmol/L (20.0-26.0) H 01/06/18 03:14 POC ABG Total CO2 29 12/25/17 03:38 POC ABG O2 Sat 95 12/25/17 03:38 ABG O2 Saturation 97.0 % (95.0-99.0) 01/06/18 03:14 ABG O2 Content 12.6 (0.0-44) 01/06/18 03:14 POC ABG Base Excess 5 12/25/17 03:38 ABG Base Excess 4.2 mmol/L (-2.0-3.0) H 01/06/18 03:14 ABG Hemoglobin 9.3 gm/dl (14.0-18.0) L 01/06/18 03:14 ABG Carboxyhemoglobin 2.0 % (0.0-5.0) 01/06/18 03:14 ABG Methemoglobin 0.4 % (0.0-1.5) 01/06/18 03:14 VBG pH 7.472 (7.320-7.420) H 12/12/17 19:18 Oxyhemoglobin 94.7 % (95.0-99.0) L 01/06/18 03:14 FiO2 30 % 01/06/18 03:14 Sodium 135 mmol/L (137-145) L 01/09/18 04:30 Potassium 4.2 mmol/L (3.6-5.0) 01/09/18 04:30 Chloride 93.8 mmol/L (98-107) L 01/09/18 04:30 Carbon Dioxide 30 mmol/L (22-30) 01/09/18 04:30 Anion Gap 15 mmol/L 01/09/18 04:30 BUN 13 mg/dL (9-20) 01/09/18 04:30 Creatinine 0.5 mg/dL (0.8-1.5) L 01/09/18 04:30 Estimated GFR > 60 ml/min 01/09/18 04:30 BUN/Creatinine Ratio 26 % 01/09/18 04:30 Glucose 137 mg/dL (75-100) H 01/09/18 04:30 POC Glucose 142 (70-105) H 01/09/18 05:42 Lactic Acid 2.00 mmol/L (0.7-2.0) 12/13/17 19:38 Calcium 9.6 mg/dL (8.4-10.2) 01/09/18 04:30 Phosphorus 3.10 mg/dL (2.5-4.5) 01/06/18 05:30 Magnesium 1.90 mg/dL (1.7-2.3) 01/06/18 05:30 Total Bilirubin 0.40 mg/dL (0.1-1.2) 01/06/18 05:30 AST 30 units/L (5-40) 01/06/18 05:30 ALT 42 units/L (7-56) 01/06/18 05:30 Alkaline Phosphatase 74 units/L (35-129) 01/06/18 05:30 C-Reactive Protein 7.10 mg/dL (0.00-1.30) H 12/20/17 13:40 NT-Pro-B Natriuret Pep 409.9 pg/mL (0-450) 12/12/17 19:02 Total Protein 7.5 g/dL (6.3-8.2) 01/06/18 05:30 Albumin 3.1 g/dL (3.9-5) L 01/06/18 05:30 Albumin/Globulin Ratio 0.7 % 01/06/18 05:30 Triglycerides 1042 mg/dL (2-149) H 12/20/17 13:40 Amylase 20 units/L (27-131) L 12/13/17 13:47 Lipase 9 units/L (13-60) L 12/13/17 13:47 Urine Color [place] (Yellow) 12/15/17 17:00 Urine Turbidity Hazy (Clear) 12/15/17 17:00 Urine pH 6.0 (5.0-7.0) 12/15/17 17:00 Ur Specific [place] 1.027 (1.003-1.030) 12/15/17 17:00 Urine Protein 30 mg/dl mg/dL (Negative) 12/15/17 17:00 Urine Glucose (UA) Neg mg/dL (Negative) 12/15/17 17:00 Urine Ketones Tr mg/dL (Negative) 12/15/17 17:00 Urine Blood Lg (Negative) 12/15/17 17:00 Urine Nitrite Neg (Negative) 12/15/17 17:00 Urine Bilirubin Neg (Negative) 12/15/17 17:00 Urine Ictotest Positive (Negative) 12/12/17 20:42 Urine Urobilinogen < 2.0 mg/dL (<2.0) 12/15/17 17:00 Ur Leukocyte Esterase Tr (Negative) 12/15/17 17:00 Urine WBC (Auto) 38.0 /HPF (0.0-6.0) H 12/15/17 17:00 Urine RBC (Auto) 65.0 /HPF (0.0-6.0) 12/15/17 17:00 U Epithel Cells (Auto) < 1.0 /HPF (0-13.0) 12/12/17 20:42 Urine Bacteria (Auto) 1+ /HPF (Negative) 12/15/17 17:00 Urine Mucus 1+ /HPF 12/12/17 20:42 Vancomycin Trough 22.5 ug/mL (5.0-20.0) H 12/25/17 12:58 [place]ER[place] Screen Negative (Negative) 12/18/17 16:44 Proteinase 3 (PR3) Ab <1.0 AI (<1.0) 12/18/17 16:33 Myeloperoxidase Ab <1.0 AI (<1.0) 12/18/17 16:33 Complement C3 113 mg/dL (82-185) 12/18/17 16:33 Complement C4 15 mg/dL (15-53) 12/18/17 16:33 Hepatitis A IgM Ab Non-reactive (NonReactive) 12/20/17 13:40 Hep Bs Antigen Non-reactive (Negative) 12/20/17 13:40 Hep B Core IgM Ab Non-reactive (NonReactive) 12/20/17 13:40 Hepatitis C Antibody Non-reactive (NonReactive) 12/20/17 13:40 HIV 1&2 Antibody Rapid Non react (Non React) 12/20/17 13:40 HIV P24 Antigen Non react (Non React) 12/20/17 13:40 Influenza A (Rapid) Negative (Negative) 12/12/17 22:00 Influenza B (Rapid) Negative (Negative) 12/12/17 22:00 Urine Legionella Ag Not detected (Not Detected) 12/14/17 16:15 Miscellaneous Test Flexitest 1 12/14/17 16:15 Blood Type O POSITIVE 12/31/17 09:25 Antibody Screen Negative 12/31/17 09:25 Crossmatch See Detail 12/31/17 09:25
[2018-01-09] MEDS: PEPCID PO SCH ×2 (10:32→22:05)
[2018-01-09] MEDS: LOPRESSOR PO SCH ×2 (10:32→22:05)
[2018-01-09] MEDS: POTASSIUM CHLORIDE PO SCH (10:33)
[2018-01-09] MEDS: SODIUM CHLORIDE FLUSH SYRINGE 10 ML IV SCH ×2 (10:33→23:56)
[2018-01-09] MEDS: LANTUS SUB-Q SCH (10:34)
[2018-01-09] MEDS: VITAMIN B-1 PO SCH (10:34)
--- NOTE | 2018-01-09 14:25 | Progress Note ---
Assessment and Plan 47 y/o male with acute respiratory failure thought secondary to H. Flu now with H. Flu bacteremia, sepsis and persistent fevers. 1. Acute respiratory failure. Patient re-intubated 12/28. Started with higher peeps as I feel some of the haze on his CXR is volume. Wean FiO2 first and then start weaning PEEP. Discussed the possibility of trach with . Given the patient's obesity, anxiety and possible underlying psych issues, may need a trach for safety. Continue to wean and attempt PSV trials when ready. Unfortunately, patient continues to fail PSV trials. Will need trach. On board with trach but has to revisit the feeding tube issue. Still no answer yet today. 2. Follow up any new ID recs 3. Monitor I/O. Patient is producing large amounts of urine. Could represent SIADH. BP stable but may need to replace 1:1 if this continues. Subjective Date of service: 01/09/18 Principal diagnosis: ARDS,Respiratory failure,pneumonia Interval history: No acute events. Tolerated PSV 15/5 all day. Rested on AC starting on collision mechanic. Objective Vital Signs - 12hr 01/09/18 01/09/18 01/09/18 03:00 04:00 05:00 Temperature 98.2 F Pulse Rate 88 88 95 H Pulse Rate [ Anterior Bilateral Throughout] Pulse Rate [ 91 H From Monitor] Pulse Rate [ 91 H Right Dorsalis Pedis] Respiratory 19 18 25 H Rate Respiratory Rate [Anterior Bilateral Throughout] Blood Pressure 111/74 126/83 117/74 O2 Sat by Pulse 98 100 96 Oximetry 01/09/18 01/09/18 01/09/18 05:25 05:57 06:00 Temperature Pulse Rate 93 H 93 H Pulse Rate [ Anterior Bilateral Throughout] Pulse Rate [ 92 H From Monitor] Pulse Rate [ 92 H Right Dorsalis Pedis] Respiratory 21 21 Rate Respiratory Rate [Anterior Bilateral Throughout] Blood Pressure 117/74 117/74 O2 Sat by Pulse 98 95 96 Oximetry 01/09/18 01/09/18 01/09/18 06:46 07:00 07:16 Temperature Pulse Rate 94 H 92 H 93 H Pulse Rate [ Anterior Bilateral Throughout] Pulse Rate [ From Monitor] Pulse Rate [ Right Dorsalis Pedis] Respiratory 19 19 19 Rate Respiratory Rate [Anterior Bilateral Throughout] Blood Pressure 107/80 124/81 124/81 O2 Sat by Pulse 98 97 98 Oximetry 01/09/18 01/09/18 01/09/18 07:30 07:46 07:49 Temperature 98.8 F Pulse Rate 94 H 95 H Pulse Rate [ Anterior Bilateral Throughout] Pulse Rate [ From Monitor] Pulse Rate [ Right Dorsalis Pedis] Respiratory 19 18 Rate Respiratory Rate [Anterior Bilateral Throughout] Blood Pressure 124/81 124/81 O2 Sat by Pulse 98 98 Oximetry 01/09/18 01/09/18 01/09/18 07:57 08:00 08:07 Temperature Pulse Rate 97 H 97 H Pulse Rate [ 94 H Anterior Bilateral Throughout] Pulse Rate [ From Monitor] Pulse Rate [ Right Dorsalis Pedis] Respiratory 29 H Rate Respiratory 29 H Rate [Anterior Bilateral Throughout] Blood Pressure 124/81 115/77 O2 Sat by Pulse 97 96 Oximetry 01/09/18 01/09/18 01/09/18 08:16 08:20 08:30 Temperature Pulse Rate 100 H 100 H Pulse Rate [ 96 H Anterior Bilateral Throughout] Pulse Rate [ From Monitor] Pulse Rate [ Right Dorsalis Pedis] Respiratory 36 H 39 H Rate Respiratory 29 H Rate [Anterior Bilateral Throughout] Blood Pressure 115/77 115/77 O2 Sat by Pulse 96 95 Oximetry 01/09/18 01/09/18 01/09/18 08:46 09:00 09:16 Temperature Pulse Rate 97 H 100 H 100 H Pulse Rate [ Anterior Bilateral Throughout] Pulse Rate [ From Monitor] Pulse Rate [ Right Dorsalis Pedis] Respiratory 32 H 31 H 40 H Rate Respiratory Rate [Anterior Bilateral Throughout] Blood Pressure 115/77 102/81 102/81 O2 Sat by Pulse 94 94 93 Oximetry 01/09/18 01/09/18 01/09/18 09:30 09:46 10:00 Temperature Pulse Rate 100 H 99 H 99 H Pulse Rate [ Anterior Bilateral Throughout] Pulse Rate [ From Monitor] Pulse Rate [ Right Dorsalis Pedis] Respiratory 32 H 39 H 38 H Rate Respiratory Rate [Anterior Bilateral Throughout] Blood Pressure 102/81 102/81 112/79 O2 Sat by Pulse 93 94 95 Oximetry 01/09/18 01/09/18 01/09/18 10:16 10:30 10:32 Temperature Pulse Rate 101 H 97 H 98 H Pulse Rate [ Anterior Bilateral Throughout] Pulse Rate [ From Monitor] Pulse Rate [ Right Dorsalis Pedis] Respiratory 39 H 31 H Rate Respiratory Rate [Anterior Bilateral Throughout] Blood Pressure 112/79 112/79 112/79 O2 Sat by Pulse 92 95 Oximetry 01/09/18 01/09/18 01/09/18 10:46 11:00 11:16 Temperature Pulse Rate 100 H 97 H 89 Pulse Rate [ Anterior Bilateral Throughout] Pulse Rate [ From Monitor] Pulse Rate [ Right Dorsalis Pedis] Respiratory 31 H 46 H 37 H Rate Respiratory Rate [Anterior Bilateral Throughout] Blood Pressure 112/79 124/81 124/81 O2 Sat by Pulse 97 97 98 Oximetry 01/09/18 01/09/18 01/09/18 11:30 11:42 11:46 Temperature 98.7 F Pulse Rate 86 84 Pulse Rate [ Anterior Bilateral Throughout] Pulse Rate [ From Monitor] Pulse Rate [ Right Dorsalis Pedis] Respiratory 37 H 38 H Rate Respiratory Rate [Anterior Bilateral Throughout] Blood Pressure 124/81 124/81 O2 Sat by Pulse 98 97 Oximetry 01/09/18 01/09/18 01/09/18 11:54 12:00 12:16 Temperature Pulse Rate 84 84 84 Pulse Rate [ Anterior Bilateral Throughout] Pulse Rate [ From Monitor] Pulse Rate [ Right Dorsalis Pedis] Respiratory 27 H 27 H Rate Respiratory Rate [Anterior Bilateral Throughout] Blood Pressure 124/81 117/81 117/81 O2 Sat by Pulse 98 97 98 Oximetry 01/09/18 01/09/18 01/09/18 12:30 12:46 13:00 Temperature Pulse Rate 85 86 85 Pulse Rate [ Anterior Bilateral Throughout] Pulse Rate [ From Monitor] Pulse Rate [ Right Dorsalis Pedis] Respiratory 24 27 H 27 H Rate Respiratory Rate [Anterior Bilateral Throughout] Blood Pressure 117/81 117/81 116/72 O2 Sat by Pulse 96 98 97 Oximetry 01/09/18 01/09/18 01/09/18 13:16 13:30 13:46 Temperature Pulse Rate 86 90 90 Pulse Rate [ Anterior Bilateral Throughout] Pulse Rate [ From Monitor] Pulse Rate [ Right Dorsalis Pedis] Respiratory 22 31 H 34 H Rate Respiratory Rate [Anterior Bilateral Throughout] Blood Pressure 116/72 116/72 116/72 O2 Sat by Pulse 93 96 97 Oximetry 01/09/18 14:00 Temperature Pulse Rate 90 Pulse Rate [ Anterior Bilateral Throughout] Pulse Rate [ From Monitor] Pulse Rate [ Right Dorsalis Pedis] Respiratory 29 H Rate Respiratory Rate [Anterior Bilateral Throughout] Blood Pressure 111/76 O2 Sat by Pulse 97 Oximetry Constitutional: no acute distress, alert, asleep Eyes: non-icteric ENT: oropharynx moist, other (ETT at 24. ) Neck: no JVD Effort: normal Ascultation: Right: rales, Bilateral: clear, diminished breath sounds, wheezes ( mild), rhonchi (sporadic), other (coarse BS bilaterally) Percussion: Bilateral: not dull Tactile fremitus: Bilateral: normal Cardiovascular: regular rate and rhythm Gastrointestinal: hypoactive bowel sounds, non-tender, other (abdominal obesity) Integumentary: normal Extremities: no cyanosis, no ischemia or petechiae Neurologic: non-focal exam, pupils equal and round, CN II-XII normal Psychiatric: mood appropriate CBC and BMP: 01/09/18 04:30 01/09/18 04:30 ABG, PT/INR, D-dimer: ABG POC ABG pH 7.503 (7.35-7.45) H 12/25/17 03:38 ABG pH 7.441 pH Units (7.350-7.450) 01/06/18 03:14 POC ABG pCO2 35.8 (35-45) 12/25/17 03:38 ABG pCO2 43.2 mm Hg 01/06/18 03:14 POC ABG pO2 66 (80-105) L 12/25/17 03:38 ABG pO2 84.9 mm Hg (80.0-90.0) 01/06/18 03:14 POC ABG HCO3 28.1 12/25/17 03:38 POC ABG Total CO2 29 12/25/17 03:38 POC ABG O2 Sat 95 12/25/17 03:38 ABG O2 Saturation 97.0 % (95.0-99.0) 01/06/18 03:14 PT/INR, D-dimer PT 14.9 Sec. (12.2-14.9) 12/15/17 04:05 INR 1.11 (0.87-1.13) 12/15/17 04:05 Abnormal lab findings: Abnormal Labs 12/12/17 12/12/17 12/12/17 18:57 19:02 19:02 WBC RBC Hgb Hct MCV 96 H MCH 34 H MCHC 35 H RDW Plt Count 46 L Lymph % (Auto) Eos % (Auto) [place] # Eos # Baso # Seg Neutrophils % Seg Neuts % (Manual) 77.0 H Lymphocytes % (Manual) 13.0 L Monocytes % (Manual) Eosinophils % (Manual) Nucleated RBC % Seg Neutrophils # Seg Neutrophils # Man Lymphocytes # (Manual) 0.9 L Monocytes # (Manual) Eosinophils # (Manual) APTT POC ABG pH ABG pH POC ABG pCO2 POC ABG pO2 ABG pO2 ABG HCO3 ABG O2 Saturation ABG Base Excess ABG Hemoglobin VBG pH Oxyhemoglobin Sodium Potassium Chloride Carbon Dioxide BUN Creatinine Glucose POC Glucose 321 H Lactic Acid 4.00 H* Calcium Phosphorus Total Bilirubin AST ALT C-Reactive Protein Total Protein Albumin Triglycerides Amylase Lipase Urine WBC (Auto) Vancomycin Trough Crossmatch 12/12/17 12/12/17 12/12/17 19:02 19:18 20:55 WBC RBC Hgb Hct MCV MCH MCHC RDW Plt Count Lymph % (Auto) Eos % (Auto) [place] # Eos # Baso # Seg Neutrophils % Seg Neuts % (Manual) Lymphocytes % (Manual) Monocytes % (Manual) Eosinophils % (Manual) Nucleated RBC % Seg Neutrophils # Seg Neutrophils # Man Lymphocytes # (Manual) Monocytes # (Manual) Eosinophils # (Manual) APTT POC ABG pH ABG pH POC ABG pCO2 POC ABG pO2 ABG pO2 ABG HCO3 ABG O2 Saturation ABG Base Excess ABG Hemoglobin VBG pH 7.472 H Oxyhemoglobin Sodium 124 L Potassium Chloride 80.0 L Carbon Dioxide 20 L BUN Creatinine Glucose 382 H POC Glucose 283 H Lactic Acid Calcium 8.1 L Phosphorus Total Bilirubin 4.60 H AST 93 H ALT 112 H C-Reactive Protein Total Protein Albumin 2.5 L Triglycerides Amylase Lipase Urine WBC (Auto) Vancomycin Trough Crossmatch 12/12/17 12/13/17 12/13/17 21:41 00:45 01:29 WBC RBC Hgb Hct MCV MCH MCHC RDW Plt Count Lymph % (Auto) Eos % (Auto) [place] # Eos # Baso # Seg Neutrophils % Seg Neuts % (Manual) Lymphocytes % (Manual) Monocytes % (Manual) Eosinophils % (Manual) Nucleated RBC % Seg Neutrophils # Seg Neutrophils # Man Lymphocytes # (Manual) Monocytes # (Manual) Eosinophils # (Manual) APTT POC ABG pH ABG pH POC ABG pCO2 POC ABG pO2 ABG pO2 ABG HCO3 ABG O2 Saturation ABG Base Excess ABG Hemoglobin VBG pH Oxyhemoglobin Sodium Potassium Chloride Carbon Dioxide BUN Creatinine Glucose POC Glucose Lactic Acid 4.20 H* 2.70 H* 3.30 H* Calcium Phosphorus Total Bilirubin AST ALT C-Reactive Protein Total Protein Albumin Triglycerides Amylase Lipase Urine WBC (Auto) Vancomycin Trough Crossmatch 12/13/17 12/13/17 12/13/17 02:19 03:44 05:58 WBC RBC Hgb Hct MCV 97 H MCH 34 H MCHC 35 H RDW Plt Count 41 L Lymph % (Auto) Eos % (Auto) [place] # Eos # Baso # Seg Neutrophils % Seg Neuts % (Manual) Lymphocytes % (Manual) 8.0 L Monocytes % (Manual) 8.0 H Eosinophils % (Manual) Nucleated RBC % Seg Neutrophils # Seg Neutrophils # Man Lymphocytes # (Manual) 0.6 L Monocytes # (Manual) Eosinophils # (Manual) APTT POC ABG pH 7.334 L ABG pH POC ABG pCO2 POC ABG pO2 43 L ABG pO2 ABG HCO3 ABG O2 Saturation ABG Base Excess ABG Hemoglobin VBG pH Oxyhemoglobin Sodium Potassium Chloride Carbon Dioxide BUN Creatinine Glucose POC Glucose Lactic Acid 2.60 H* Calcium Phosphorus Total Bilirubin AST ALT C-Reactive Protein Total Protein Albumin Triglycerides Amylase Lipase Urine WBC (Auto) Vancomycin Trough Crossmatch 12/13/17 12/13/17 12/13/17 05:58 05:58 05:58 WBC RBC Hgb Hct MCV MCH MCHC RDW Plt Count Lymph % (Auto) Eos % (Auto) [place] # Eos # Baso # Seg Neutrophils % Seg Neuts % (Manual) Lymphocytes % (Manual) Monocytes % (Manual) Eosinophils % (Manual) Nucleated RBC % Seg Neutrophils # Seg Neutrophils # Man Lymphocytes # (Manual) Monocytes # (Manual) Eosinophils # (Manual) APTT POC ABG pH ABG pH POC ABG pCO2 POC ABG pO2 ABG pO2 ABG HCO3 ABG O2 Saturation ABG Base Excess ABG Hemoglobin VBG pH Oxyhemoglobin Sodium 132 L D Potassium Chloride 90.0 L Carbon Dioxide 20 L BUN Creatinine Glucose 346 H POC Glucose 298 H Lactic Acid 4.50 H* Calcium 8.2 L Phosphorus Total Bilirubin AST ALT C-Reactive Protein Total Protein Albumin Triglycerides Amylase Lipase Urine WBC (Auto) Vancomycin Trough Crossmatch 03/12/13/17 12/13/17 06:27 09:42 11:47 WBC RBC Hgb Hct MCV MCH MCHC RDW Plt Count Lymph % (Auto) Eos % (Auto) [place] # Eos # Baso # Seg Neutrophils % Seg Neuts % (Manual) Lymphocytes % (Manual) Monocytes % (Manual) Eosinophils % (Manual) Nucleated RBC % Seg Neutrophils # Seg Neutrophils # Man Lymphocytes # (Manual) Monocytes # (Manual) Eosinophils # (Manual) APTT POC ABG pH 7.267 L 7.298 L ABG pH POC ABG pCO2 50.4 H 51.3 H POC ABG pO2 47 L 43 L ABG pO2 ABG HCO3 ABG O2 Saturation ABG Base Excess ABG Hemoglobin VBG pH Oxyhemoglobin Sodium Potassium Chloride Carbon Dioxide BUN Creatinine Glucose POC Glucose 376 H Lactic Acid Calcium Phosphorus Total Bilirubin AST ALT C-Reactive Protein Total Protein Albumin Triglycerides Amylase Lipase Urine WBC (Auto) Vancomycin Trough Crossmatch 12/13/17 12/13/17 12/13/17 12:03 13:47 13:47 WBC RBC Hgb Hct MCV MCH MCHC RDW Plt Count Lymph % (Auto) Eos % (Auto) [place] # Eos # Baso # Seg Neutrophils % Seg Neuts % (Manual) Lymphocytes % (Manual) Monocytes % (Manual) Eosinophils % (Manual) Nucleated RBC % Seg Neutrophils # Seg Neutrophils # Man Lymphocytes # (Manual) Monocytes # (Manual) Eosinophils # (Manual) APTT POC ABG pH 7.264 L ABG pH POC ABG pCO2 54.9 H POC ABG pO2 55 L ABG pO2 ABG HCO3 ABG O2 Saturation ABG Base Excess ABG Hemoglobin VBG pH Oxyhemoglobin Sodium Potassium Chloride Carbon Dioxide BUN Creatinine Glucose POC Glucose Lactic Acid 2.80 H* Calcium Phosphorus Total Bilirubin AST ALT C-Reactive Protein Total Protein Albumin Triglycerides Amylase 20 L Lipase 9 L Urine WBC (Auto) Vancomycin Trough Crossmatch 12/13/17 12/13/17 12/13/17 15:36 17:39 21:47 WBC RBC Hgb Hct MCV MCH MCHC RDW Plt Count Lymph % (Auto) Eos % (Auto) [place] # Eos # Baso # Seg Neutrophils % Seg Neuts % (Manual) Lymphocytes % (Manual) Monocytes % (Manual) Eosinophils % (Manual) Nucleated RBC % Seg Neutrophils # Seg Neutrophils # Man Lymphocytes # (Manual) Monocytes # (Manual) Eosinophils # (Manual) APTT POC ABG pH 7.229 L 7.225 L ABG pH POC ABG pCO2 60.9 H 66.3 H POC ABG pO2 42 L 41 L ABG pO2 ABG HCO3 ABG O2 Saturation ABG Base Excess ABG Hemoglobin VBG pH Oxyhemoglobin Sodium Potassium Chloride Carbon Dioxide BUN Creatinine Glucose POC Glucose 289 H Lactic Acid Calcium Phosphorus Total Bilirubin AST ALT C-Reactive Protein Total Protein Albumin Triglycerides Amylase Lipase Urine WBC (Auto) Vancomycin Trough Crossmatch 12/13/17 12/14/17 12/14/17 22:19 02:03 05:16 WBC RBC Hgb Hct MCV MCH MCHC RDW Plt Count Lymph % (Auto) Eos % (Auto) [place] # Eos # Baso # Seg Neutrophils % Seg Neuts % (Manual) Lymphocytes % (Manual) Monocytes % (Manual) Eosinophils % (Manual) Nucleated RBC % Seg Neutrophils # Seg Neutrophils # Man Lymphocytes # (Manual) Monocytes # (Manual) Eosinophils # (Manual) APTT POC ABG pH 7.247 L ABG pH POC ABG pCO2 61.2 H POC ABG pO2 53 L ABG pO2 ABG HCO3 ABG O2 Saturation ABG Base Excess ABG Hemoglobin VBG pH Oxyhemoglobin Sodium Potassium Chloride Carbon Dioxide BUN Creatinine Glucose POC Glucose 274 H 295 H Lactic Acid Calcium Phosphorus Total Bilirubin AST ALT C-Reactive Protein Total Protein Albumin Triglycerides Amylase Lipase Urine WBC (Auto) Vancomycin Trough Crossmatch 12/14/17 12/14/17 12/14/17 05:32 12:04 16:22 WBC RBC Hgb Hct MCV MCH MCHC RDW Plt Count Lymph % (Auto) Eos % (Auto) [place] # Eos # Baso # Seg Neutrophils % Seg Neuts % (Manual) Lymphocytes % (Manual) Monocytes % (Manual) Eosinophils % (Manual) Nucleated RBC % Seg Neutrophils # Seg Neutrophils # Man Lymphocytes # (Manual) Monocytes # (Manual) Eosinophils # (Manual) APTT POC ABG pH ABG pH POC ABG pCO2 POC ABG pO2 ABG pO2 ABG HCO3 ABG O2 Saturation ABG Base Excess ABG Hemoglobin VBG pH Oxyhemoglobin Sodium Potassium Chloride Carbon Dioxide BUN Creatinine Glucose POC Glucose 230 H 241 H 231 H Lactic Acid Calcium Phosphorus Total Bilirubin AST ALT C-Reactive Protein Total Protein Albumin Triglycerides Amylase Lipase Urine WBC (Auto) Vancomycin Trough Crossmatch 12/14/17 12/15/17 12/15/17 21:29 02:29 03:25 WBC RBC Hgb Hct MCV MCH MCHC RDW Plt Count Lymph % (Auto) Eos % (Auto) [place] # Eos # Baso # Seg Neutrophils % Seg Neuts % (Manual) Lymphocytes % (Manual) Monocytes % (Manual) Eosinophils % (Manual) Nucleated RBC % Seg Neutrophils # Seg Neutrophils # Man Lymphocytes # (Manual) Monocytes # (Manual) Eosinophils # (Manual) APTT POC ABG pH 7.330 L ABG pH POC ABG pCO2 55.3 H POC ABG pO2 59 L ABG pO2 ABG HCO3 ABG O2 Saturation ABG Base Excess ABG Hemoglobin VBG pH Oxyhemoglobin Sodium Potassium Chloride Carbon Dioxide BUN Creatinine Glucose POC Glucose 258 H 246 H Lactic Acid Calcium Phosphorus Total Bilirubin AST ALT C-Reactive Protein Total Protein Albumin Triglycerides Amylase Lipase Urine WBC (Auto) Vancomycin Trough Crossmatch 12/15/17 12/15/17 12/15/17 04:05 04:05 04:05 WBC 15.0 H RBC 3.40 L Hgb 11.3 L D Hct 33.8 L D MCV 100 H MCH 33 H MCHC RDW Plt Count 48 L Lymph % (Auto) Eos % (Auto) [place] # Eos # Baso # Seg Neutrophils % Seg Neuts % (Manual) Lymphocytes % (Manual) 3.0 L Monocytes % (Manual) Eosinophils % (Manual) Nucleated RBC % 2.0 H Seg Neutrophils # Seg Neutrophils # Man Lymphocytes # (Manual) 0.5 L Monocytes # (Manual) 0.9 H Eosinophils # (Manual) APTT 20.9 L POC ABG pH ABG pH POC ABG pCO2 POC ABG pO2 ABG pO2 ABG HCO3 ABG O2 Saturation ABG Base Excess ABG Hemoglobin VBG pH Oxyhemoglobin Sodium Potassium Chloride Carbon Dioxide BUN 27 H Creatinine Glucose 258 H POC Glucose Lactic Acid Calcium 8.1 L Phosphorus Total Bilirubin AST ALT C-Reactive Protein Total Protein Albumin Triglycerides Amylase Lipase Urine WBC (Auto) Vancomycin Trough Crossmatch 12/15/17 12/15/17 12/15/17 05:32 11:17 14:59 WBC RBC Hgb Hct MCV MCH MCHC RDW Plt Count Lymph % (Auto) Eos % (Auto) [place] # Eos # Baso # Seg Neutrophils % Seg Neuts % (Manual) Lymphocytes % (Manual) Monocytes % (Manual) Eosinophils % (Manual) Nucleated RBC % Seg Neutrophils # Seg Neutrophils # Man Lymphocytes # (Manual) Monocytes # (Manual) Eosinophils # (Manual) APTT POC ABG pH ABG pH POC ABG pCO2 POC ABG pO2 ABG pO2 ABG HCO3 ABG O2 Saturation ABG Base Excess ABG Hemoglobin VBG pH Oxyhemoglobin Sodium Potassium Chloride Carbon Dioxide BUN Creatinine Glucose POC Glucose 247 H 268 H 233 H Lactic Acid Calcium Phosphorus Total Bilirubin AST ALT C-Reactive Protein Total Protein Albumin Triglycerides Amylase Lipase Urine WBC (Auto) Vancomycin Trough Crossmatch 12/15/17 12/15/17 12/15/17 17:00 18:59 21:37 WBC RBC Hgb Hct MCV MCH MCHC RDW Plt Count Lymph % (Auto) Eos % (Auto) [place] # Eos # Baso # Seg Neutrophils % Seg Neuts % (Manual) Lymphocytes % (Manual) Monocytes % (Manual) Eosinophils % (Manual) Nucleated RBC % Seg Neutrophils # Seg Neutrophils # Man Lymphocytes # (Manual) Monocytes # (Manual) Eosinophils # (Manual) APTT POC ABG pH ABG pH POC ABG pCO2 POC ABG pO2 ABG pO2 ABG HCO3 ABG O2 Saturation ABG Base Excess ABG Hemoglobin VBG pH Oxyhemoglobin Sodium Potassium Chloride Carbon Dioxide BUN Creatinine Glucose POC Glucose 195 H 208 H Lactic Acid Calcium Phosphorus Total Bilirubin AST ALT C-Reactive Protein Total Protein Albumin Triglycerides Amylase Lipase Urine WBC (Auto) 38.0 H Vancomycin Trough Crossmatch 12/16/17 12/16/17 12/16/17 03:17 03:33 04:18 WBC 16.4 H RBC 3.50 L Hgb 11.3 L Hct 35.4 L MCV 101 H MCH MCHC RDW Plt Count 54 L Lymph % (Auto) Eos % (Auto) [place] # Eos # Baso # Seg Neutrophils % Seg Neuts % (Manual) Lymphocytes % (Manual) Monocytes % (Manual) Eosinophils % (Manual) Nucleated RBC % Seg Neutrophils # Seg Neutrophils # Man Lymphocytes # (Manual) Monocytes # (Manual) Eosinophils # (Manual) APTT POC ABG pH ABG pH POC ABG pCO2 47.7 H POC ABG pO2 ABG pO2 ABG HCO3 ABG O2 Saturation ABG Base Excess ABG Hemoglobin VBG pH Oxyhemoglobin Sodium Potassium Chloride Carbon Dioxide BUN Creatinine Glucose POC Glucose 227 H Lactic Acid Calcium Phosphorus Total Bilirubin AST ALT C-Reactive Protein Total Protein Albumin Triglycerides Amylase Lipase Urine WBC (Auto) Vancomycin Trough Crossmatch 12/16/17 12/16/17 12/16/17 04:18 05:08 10:01 WBC RBC Hgb Hct MCV MCH MCHC RDW Plt Count Lymph % (Auto) Eos % (Auto) [place] # Eos # Baso # Seg Neutrophils % Seg Neuts % (Manual) Lymphocytes % (Manual) Monocytes % (Manual) Eosinophils % (Manual) Nucleated RBC % Seg Neutrophils # Seg Neutrophils # Man Lymphocytes # (Manual) Monocytes # (Manual) Eosinophils # (Manual) APTT POC ABG pH ABG pH POC ABG pCO2 POC ABG pO2 ABG pO2 ABG HCO3 ABG O2 Saturation ABG Base Excess ABG Hemoglobin VBG pH Oxyhemoglobin Sodium 147 H Potassium Chloride 107.4 H Carbon Dioxide BUN 28 H Creatinine Glucose 240 H POC Glucose 227 H 190 H Lactic Acid Calcium 8.3 L Phosphorus Total Bilirubin AST ALT C-Reactive Protein Total Protein Albumin Triglycerides Amylase Lipase Urine WBC (Auto) Vancomycin Trough Crossmatch 12/16/17 12/16/17 12/16/17 14:15 17:51 21:14 WBC RBC Hgb Hct MCV MCH MCHC RDW Plt Count Lymph % (Auto) Eos % (Auto) [place] # Eos # Baso # Seg Neutrophils % Seg Neuts % (Manual) Lymphocytes % (Manual) Monocytes % (Manual) Eosinophils % (Manual) Nucleated RBC % Seg Neutrophils # Seg Neutrophils # Man Lymphocytes # (Manual) Monocytes # (Manual) Eosinophils # (Manual) APTT POC ABG pH ABG pH POC ABG pCO2 POC ABG pO2 ABG pO2 ABG HCO3 ABG O2 Saturation ABG Base Excess ABG Hemoglobin VBG pH Oxyhemoglobin Sodium Potassium Chloride Carbon Dioxide BUN Creatinine Glucose POC Glucose 279 H 272 H 260 H Lactic Acid Calcium Phosphorus Total Bilirubin AST ALT C-Reactive Protein Total Protein Albumin Triglycerides Amylase Lipase Urine WBC (Auto) Vancomycin Trough Crossmatch 12/17/17 12/17/17 12/17/17 02:41 04:28 04:28 WBC 19.1 H RBC 3.50 L Hgb 11.4 L Hct 35.3 L MCV 101 H MCH 33 H MCHC RDW Plt Count 65 L Lymph % (Auto) Eos % (Auto) [place] # Eos # Baso # Seg Neutrophils % Seg Neuts % (Manual) Lymphocytes % (Manual) Monocytes % (Manual) Eosinophils % (Manual) Nucleated RBC % Seg Neutrophils # Seg Neutrophils # Man Lymphocytes # (Manual) Monocytes # (Manual) Eosinophils # (Manual) APTT POC ABG pH ABG pH POC ABG pCO2 POC ABG pO2 ABG pO2 ABG HCO3 ABG O2 Saturation ABG Base Excess ABG Hemoglobin VBG pH Oxyhemoglobin Sodium 153 H Potassium Chloride 111.2 H Carbon Dioxide 31 H BUN 28 H Creatinine Glucose 248 H POC Glucose 300 H Lactic Acid Calcium Phosphorus Total Bilirubin AST ALT C-Reactive Protein Total Protein Albumin Triglycerides Amylase Lipase Urine WBC (Auto) Vancomycin Trough Crossmatch 12/17/17 12/17/17 12/17/17 05:15 05:38 10:16 WBC RBC Hgb Hct MCV MCH MCHC RDW Plt Count Lymph % (Auto) Eos % (Auto) [place] # Eos # Baso # Seg Neutrophils % Seg Neuts % (Manual) Lymphocytes % (Manual) Monocytes % (Manual) Eosinophils % (Manual) Nucleated RBC % Seg Neutrophils # Seg Neutrophils # Man Lymphocytes # (Manual) Monocytes # (Manual) Eosinophils # (Manual) APTT POC ABG pH ABG pH POC ABG pCO2 50.3 H POC ABG pO2 120 H ABG pO2 ABG HCO3 ABG O2 Saturation ABG Base Excess ABG Hemoglobin VBG pH Oxyhemoglobin Sodium Potassium Chloride Carbon Dioxide BUN Creatinine Glucose POC Glucose 231 H 196 H Lactic Acid Calcium Phosphorus Total Bilirubin AST ALT C-Reactive Protein Total Protein Albumin Triglycerides Amylase Lipase Urine WBC (Auto) Vancomycin Trough Crossmatch 12/17/17 12/17/17 12/17/17 14:22 18:14 21:35 WBC RBC Hgb Hct MCV MCH MCHC RDW Plt Count Lymph % (Auto) Eos % (Auto) [place] # Eos # Baso # Seg Neutrophils % Seg Neuts % (Manual) Lymphocytes % (Manual) Monocytes % (Manual) Eosinophils % (Manual) Nucleated RBC % Seg Neutrophils # Seg Neutrophils # Man Lymphocytes # (Manual) Monocytes # (Manual) Eosinophils # (Manual) APTT POC ABG pH ABG pH POC ABG pCO2 POC ABG pO2 ABG pO2 ABG HCO3 ABG O2 Saturation ABG Base Excess ABG Hemoglobin VBG pH Oxyhemoglobin Sodium Potassium Chloride Carbon Dioxide BUN Creatinine Glucose POC Glucose 234 H 215 H 159 H Lactic Acid Calcium Phosphorus Total Bilirubin AST ALT C-Reactive Protein Total Protein Albumin Triglycerides Amylase Lipase Urine WBC (Auto) Vancomycin Trough Crossmatch 12/18/17 12/18/17 12/18/17 00:53 02:58 06:03 WBC RBC Hgb Hct MCV MCH MCHC RDW Plt Count Lymph % (Auto) Eos % (Auto) [place] # Eos # Baso # Seg Neutrophils % Seg Neuts % (Manual) Lymphocytes % (Manual) Monocytes % (Manual) Eosinophils % (Manual) Nucleated RBC % Seg Neutrophils # Seg Neutrophils # Man Lymphocytes # (Manual) Monocytes # (Manual) Eosinophils # (Manual) APTT POC ABG pH ABG pH POC ABG pCO2 56.4 H POC ABG pO2 46 L ABG pO2 ABG HCO3 ABG O2 Saturation ABG Base Excess ABG Hemoglobin VBG pH Oxyhemoglobin Sodium Potassium Chloride Carbon Dioxide BUN Creatinine Glucose POC Glucose 176 H 143 H Lactic Acid Calcium Phosphorus Total Bilirubin AST ALT C-Reactive Protein Total Protein Albumin Triglycerides Amylase Lipase Urine WBC (Auto) Vancomycin Trough Crossmatch 12/18/17 12/18/17 12/18/17 07:59 09:20 09:20 WBC 27.4 H RBC 3.57 L Hgb 11.4 L Hct MCV 101 H MCH MCHC RDW Plt Count 64 L Lymph % (Auto) Eos % (Auto) [place] # Eos # Baso # Seg Neutrophils % Seg Neuts % (Manual) Lymphocytes % (Manual) Monocytes % (Manual) Eosinophils % (Manual) Nucleated RBC % Seg Neutrophils # Seg Neutrophils # Man Lymphocytes # (Manual) Monocytes # (Manual) Eosinophils # (Manual) APTT POC ABG pH ABG pH POC ABG pCO2 POC ABG pO2 ABG pO2 ABG HCO3 ABG O2 Saturation ABG Base Excess ABG Hemoglobin VBG pH Oxyhemoglobin Sodium 152 H Potassium Chloride 107.9 H Carbon Dioxide 34 H BUN 23 H Creatinine 0.7 L Glucose 181 H POC Glucose 197 H Lactic Acid Calcium Phosphorus Total Bilirubin AST ALT C-Reactive Protein Total Protein Albumin Triglycerides Amylase Lipase Urine WBC (Auto) Vancomycin Trough Crossmatch 12/18/17 12/18/17 12/18/17 10:22 15:03 18:15 WBC RBC Hgb Hct MCV MCH MCHC RDW Plt Count Lymph % (Auto) Eos % (Auto) [place] # Eos # Baso # Seg Neutrophils % Seg Neuts % (Manual) Lymphocytes % (Manual) Monocytes % (Manual) Eosinophils % (Manual) Nucleated RBC % Seg Neutrophils # Seg Neutrophils # Man Lymphocytes # (Manual) Monocytes # (Manual) Eosinophils # (Manual) APTT POC ABG pH ABG pH POC ABG pCO2 POC ABG pO2 ABG pO2 ABG HCO3 ABG O2 Saturation ABG Base Excess ABG Hemoglobin VBG pH Oxyhemoglobin Sodium Potassium Chloride Carbon Dioxide BUN Creatinine Glucose POC Glucose 195 H 225 H 238 H Lactic Acid Calcium Phosphorus Total Bilirubin AST ALT C-Reactive Protein Total Protein Albumin Triglycerides Amylase Lipase Urine WBC (Auto) Vancomycin Trough Crossmatch 12/18/17 12/18/17 12/19/17 18:29 21:53 00:18 WBC RBC Hgb Hct MCV MCH MCHC RDW Plt Count Lymph % (Auto) Eos % (Auto) [place] # Eos # Baso # Seg Neutrophils % Seg Neuts % (Manual) Lymphocytes % (Manual) Monocytes % (Manual) Eosinophils % (Manual) Nucleated RBC % Seg Neutrophils # Seg Neutrophils # Man Lymphocytes # (Manual) Monocytes # (Manual) Eosinophils # (Manual) APTT POC ABG pH 7.476 H ABG pH POC ABG pCO2 50.4 H POC ABG pO2 158 H ABG pO2 ABG HCO3 ABG O2 Saturation ABG Base Excess ABG Hemoglobin VBG pH Oxyhemoglobin Sodium Potassium Chloride Carbon Dioxide BUN Creatinine Glucose POC Glucose 231 H 263 H Lactic Acid Calcium Phosphorus Total Bilirubin AST ALT C-Reactive Protein Total Protein Albumin Triglycerides Amylase Lipase Urine WBC (Auto) Vancomycin Trough Crossmatch 12/19/17 12/19/17 12/19/17 02:09 04:07 04:07 WBC 25.9 H RBC 3.25 L Hgb 10.6 L Hct 32.8 L MCV 101 H MCH 33 H MCHC RDW Plt Count 67 L Lymph % (Auto) Eos % (Auto) [place] # Eos # Baso # Seg Neutrophils % Seg Neuts % (Manual) Lymphocytes % (Manual) 4.0 L Monocytes % (Manual) Eosinophils % (Manual) Nucleated RBC % Seg Neutrophils # Seg Neutrophils # Man 14.8 H Lymphocytes # (Manual) 1.0 L Monocytes # (Manual) Eosinophils # (Manual) APTT POC ABG pH ABG pH POC ABG pCO2 POC ABG pO2 ABG pO2 ABG HCO3 ABG O2 Saturation ABG Base Excess ABG Hemoglobin VBG pH Oxyhemoglobin Sodium 148 H Potassium Chloride Carbon Dioxide BUN 31 H Creatinine Glucose 314 H POC Glucose 300 H Lactic Acid Calcium 8.1 L Phosphorus Total Bilirubin AST ALT C-Reactive Protein Total Protein Albumin Triglycerides Amylase Lipase Urine WBC (Auto) Vancomycin Trough Crossmatch 12/19/17 12/19/17 12/19/17 05:15 05:41 07:57 WBC RBC Hgb Hct MCV MCH MCHC RDW Plt Count Lymph % (Auto) Eos % (Auto) [place] # Eos # Baso # Seg Neutrophils % Seg Neuts % (Manual) Lymphocytes % (Manual) Monocytes % (Manual) Eosinophils % (Manual) Nucleated RBC % Seg Neutrophils # Seg Neutrophils # Man Lymphocytes # (Manual) Monocytes # (Manual) Eosinophils # (Manual) APTT POC ABG pH 7.507 H ABG pH POC ABG pCO2 POC ABG pO2 ABG pO2 ABG HCO3 ABG O2 Saturation ABG Base Excess ABG Hemoglobin VBG pH Oxyhemoglobin Sodium Potassium Chloride Carbon Dioxide BUN Creatinine Glucose POC Glucose 331 H 307 H Lactic Acid Calcium Phosphorus Total Bilirubin AST ALT C-Reactive Protein Total Protein Albumin Triglycerides Amylase Lipase Urine WBC (Auto) Vancomycin Trough Crossmatch 12/19/17 12/19/17 12/19/17 10:21 14:48 17:59 WBC RBC Hgb Hct MCV MCH MCHC RDW Plt Count Lymph % (Auto) Eos % (Auto) [place] # Eos # Baso # Seg Neutrophils % Seg Neuts % (Manual) Lymphocytes % (Manual) Monocytes % (Manual) Eosinophils % (Manual) Nucleated RBC % Seg Neutrophils # Seg Neutrophils # Man Lymphocytes # (Manual) Monocytes # (Manual) Eosinophils # (Manual) APTT POC ABG pH ABG pH POC ABG pCO2 POC ABG pO2 ABG pO2 ABG HCO3 ABG O2 Saturation ABG Base Excess ABG Hemoglobin VBG pH Oxyhemoglobin Sodium Potassium Chloride Carbon Dioxide BUN Creatinine Glucose POC Glucose 358 H 327 H 355 H Lactic Acid Calcium Phosphorus Total Bilirubin AST ALT C-Reactive Protein Total Protein Albumin Triglycerides Amylase Lipase Urine WBC (Auto) Vancomycin Trough Crossmatch 12/19/17 12/20/17 12/20/17 21:38 02:21 03:42 WBC RBC Hgb Hct MCV MCH MCHC RDW Plt Count Lymph % (Auto) Eos % (Auto) [place] # Eos # Baso # Seg Neutrophils % Seg Neuts % (Manual) Lymphocytes % (Manual) Monocytes % (Manual) Eosinophils % (Manual) Nucleated RBC % Seg Neutrophils # Seg Neutrophils # Man Lymphocytes # (Manual) Monocytes # (Manual) Eosinophils # (Manual) APTT POC ABG pH 7.494 H ABG pH POC ABG pCO2 POC ABG pO2 ABG pO2 ABG HCO3 ABG O2 Saturation ABG Base Excess ABG Hemoglobin VBG pH Oxyhemoglobin Sodium Potassium Chloride Carbon Dioxide BUN Creatinine Glucose POC Glucose 329 H 354 H Lactic Acid Calcium Phosphorus Total Bilirubin AST ALT C-Reactive Protein Total Protein Albumin Triglycerides Amylase Lipase Urine WBC (Auto) Vancomycin Trough Crossmatch 12/20/17 12/20/17 12/20/17 04:08 04:08 04:08 WBC 22.7 H RBC 3.26 L Hgb 10.6 L Hct 32.9 L MCV 101 H MCH 33 H MCHC RDW Plt Count 78 L Lymph % (Auto) Eos % (Auto) [place] # Eos # Baso # Seg Neutrophils % Seg Neuts % (Manual) 80.0 H Lymphocytes % (Manual) 6.0 L Monocytes % (Manual) Eosinophils % (Manual) Nucleated RBC % Seg Neutrophils # Seg Neutrophils # Man 18.2 H Lymphocytes # (Manual) Monocytes # (Manual) Eosinophils # (Manual) APTT POC ABG pH ABG pH POC ABG pCO2 POC ABG pO2 ABG pO2 ABG HCO3 ABG O2 Saturation ABG Base Excess ABG Hemoglobin VBG pH Oxyhemoglobin Sodium Potassium Chloride Carbon Dioxide 31 H BUN 30 H Creatinine 0.6 L Glucose 365 H POC Glucose Lactic Acid Calcium Phosphorus Total Bilirubin AST ALT C-Reactive Protein Total Protein Albumin Triglycerides 981 H Amylase Lipase Urine WBC (Auto) Vancomycin Trough Crossmatch 12/20/17 12/20/17 12/20/17 05:15 10:47 13:40 WBC RBC Hgb Hct MCV MCH MCHC RDW Plt Count Lymph % (Auto) Eos % (Auto) [place] # Eos # Baso # Seg Neutrophils % Seg Neuts % (Manual) Lymphocytes % (Manual) Monocytes % (Manual) Eosinophils % (Manual) Nucleated RBC % Seg Neutrophils # Seg Neutrophils # Man Lymphocytes # (Manual) Monocytes # (Manual) Eosinophils # (Manual) APTT POC ABG pH ABG pH POC ABG pCO2 POC ABG pO2 ABG pO2 ABG HCO3 ABG O2 Saturation ABG Base Excess ABG Hemoglobin VBG pH Oxyhemoglobin Sodium Potassium Chloride Carbon Dioxide BUN Creatinine Glucose POC Glucose 342 H 330 H Lactic Acid Calcium Phosphorus Total Bilirubin AST ALT C-Reactive Protein 7.10 H Total Protein Albumin Triglycerides Amylase Lipase Urine WBC (Auto) Vancomycin Trough Crossmatch 12/20/17 12/20/17 12/20/17 13:40 14:52 16:55 WBC RBC Hgb Hct MCV MCH MCHC RDW Plt Count Lymph % (Auto) Eos % (Auto) [place] # Eos # Baso # Seg Neutrophils % Seg Neuts % (Manual) Lymphocytes % (Manual) Monocytes % (Manual) Eosinophils % (Manual) Nucleated RBC % Seg Neutrophils # Seg Neutrophils # Man Lymphocytes # (Manual) Monocytes # (Manual) Eosinophils # (Manual) APTT POC ABG pH 7.484 H ABG pH POC ABG pCO2 POC ABG pO2 ABG pO2 ABG HCO3 ABG O2 Saturation ABG Base Excess ABG Hemoglobin VBG pH Oxyhemoglobin Sodium Potassium Chloride Carbon Dioxide BUN Creatinine Glucose POC Glucose 293 H Lactic Acid Calcium Phosphorus Total Bilirubin AST ALT C-Reactive Protein Total Protein Albumin Triglycerides 1042 H Amylase Lipase Urine WBC (Auto) Vancomycin Trough Crossmatch 12/20/17 12/20/17 12/21/17 18:00 21:58 02:05 WBC RBC Hgb Hct MCV MCH MCHC RDW Plt Count Lymph % (Auto) Eos % (Auto) [place] # Eos # Baso # Seg Neutrophils % Seg Neuts % (Manual) Lymphocytes % (Manual) Monocytes % (Manual) Eosinophils % (Manual) Nucleated RBC % Seg Neutrophils # Seg Neutrophils # Man Lymphocytes # (Manual) Monocytes # (Manual) Eosinophils # (Manual) APTT POC ABG pH ABG pH POC ABG pCO2 POC ABG pO2 ABG pO2 ABG HCO3 ABG O2 Saturation ABG Base Excess ABG Hemoglobin VBG pH Oxyhemoglobin Sodium Potassium Chloride Carbon Dioxide BUN Creatinine Glucose POC Glucose 268 H 272 H 229 H Lactic Acid Calcium Phosphorus Total Bilirubin AST ALT C-Reactive Protein Total Protein Albumin Triglycerides Amylase Lipase Urine WBC (Auto) Vancomycin Trough Crossmatch 12/21/17 12/21/17 12/21/17 03:59 06:23 08:57 WBC RBC Hgb Hct MCV MCH MCHC RDW Plt Count Lymph % (Auto) Eos % (Auto) [place] # Eos # Baso # Seg Neutrophils % Seg Neuts % (Manual) Lymphocytes % (Manual) Monocytes % (Manual) Eosinophils % (Manual) Nucleated RBC % Seg Neutrophils # Seg Neutrophils # Man Lymphocytes # (Manual) Monocytes # (Manual) Eosinophils # (Manual) APTT POC ABG pH 7.474 H ABG pH POC ABG pCO2 POC ABG pO2 71 L ABG pO2 ABG HCO3 ABG O2 Saturation ABG Base Excess ABG Hemoglobin VBG pH Oxyhemoglobin Sodium Potassium Chloride Carbon Dioxide BUN Creatinine Glucose POC Glucose 182 H 217 H Lactic Acid Calcium Phosphorus Total Bilirubin AST ALT C-Reactive Protein Total Protein Albumin Triglycerides Amylase Lipase Urine WBC (Auto) Vancomycin Trough Crossmatch 12/21/17 12/21/17 12/21/17 13:59 18:00 21:20 WBC RBC Hgb Hct MCV MCH MCHC RDW Plt Count Lymph % (Auto) Eos % (Auto) [place] # Eos # Baso # Seg Neutrophils % Seg Neuts % (Manual) Lymphocytes % (Manual) Monocytes % (Manual) Eosinophils % (Manual) Nucleated RBC % Seg Neutrophils # Seg Neutrophils # Man Lymphocytes # (Manual) Monocytes # (Manual) Eosinophils # (Manual) APTT POC ABG pH ABG pH POC ABG pCO2 POC ABG pO2 ABG pO2 ABG HCO3 ABG O2 Saturation ABG Base Excess ABG Hemoglobin VBG pH Oxyhemoglobin Sodium Potassium Chloride Carbon Dioxide BUN Creatinine Glucose POC Glucose 185 H 176 H 187 H Lactic Acid Calcium Phosphorus Total Bilirubin AST ALT C-Reactive Protein Total Protein Albumin Triglycerides Amylase Lipase Urine WBC (Auto) Vancomycin Trough Crossmatch 12/21/17 12/22/17 12/22/17 23:48 04:39 05:30 WBC RBC Hgb Hct MCV MCH MCHC RDW Plt Count Lymph % (Auto) Eos % (Auto) [place] # Eos # Baso # Seg Neutrophils % Seg Neuts % (Manual) Lymphocytes % (Manual) Monocytes % (Manual) Eosinophils % (Manual) Nucleated RBC % Seg Neutrophils # Seg Neutrophils # Man Lymphocytes # (Manual) Monocytes # (Manual) Eosinophils # (Manual) APTT POC ABG pH 7.528 H ABG pH POC ABG pCO2 POC ABG pO2 63 L ABG pO2 ABG HCO3 ABG O2 Saturation ABG Base Excess ABG Hemoglobin VBG pH Oxyhemoglobin Sodium Potassium Chloride Carbon Dioxide BUN Creatinine Glucose POC Glucose 126 H 117 H Lactic Acid Calcium Phosphorus Total Bilirubin AST ALT C-Reactive Protein Total Protein Albumin Triglycerides Amylase Lipase Urine WBC (Auto) Vancomycin Trough Crossmatch 12/22/17 12/22/17 12/22/17 09:12 10:34 10:34 WBC 29.5 H RBC 3.44 L Hgb 11.2 L Hct 34.2 L MCV 99 H MCH 33 H MCHC RDW 13.1 L Plt Count 97 L Lymph % (Auto) Eos % (Auto) [place] # Eos # Baso # Seg Neutrophils % Seg Neuts % (Manual) 88.0 H Lymphocytes % (Manual) 5.0 L Monocytes % (Manual) Eosinophils % (Manual) Nucleated RBC % Seg Neutrophils # Seg Neutrophils # Man 26.0 H Lymphocytes # (Manual) Monocytes # (Manual) Eosinophils # (Manual) APTT POC ABG pH ABG pH POC ABG pCO2 POC ABG pO2 ABG pO2 ABG HCO3 ABG O2 Saturation ABG Base Excess ABG Hemoglobin VBG pH Oxyhemoglobin Sodium 146 H Potassium 3.1 L Chloride Carbon Dioxide BUN 25 H Creatinine 0.7 L Glucose 146 H POC Glucose 168 H Lactic Acid Calcium 8.1 L Phosphorus Total Bilirubin AST ALT C-Reactive Protein Total Protein Albumin Triglycerides Amylase Lipase Urine WBC (Auto) Vancomycin Trough Crossmatch 12/22/17 12/22/17 12/22/17 14:51 17:21 21:43 WBC RBC Hgb Hct MCV MCH MCHC RDW Plt Count Lymph % (Auto) Eos % (Auto) [place] # Eos # Baso # Seg Neutrophils % Seg Neuts % (Manual) Lymphocytes % (Manual) Monocytes % (Manual) Eosinophils % (Manual) Nucleated RBC % Seg Neutrophils # Seg Neutrophils # Man Lymphocytes # (Manual) Monocytes # (Manual) Eosinophils # (Manual) APTT POC ABG pH ABG pH POC ABG pCO2 POC ABG pO2 ABG pO2 ABG HCO3 ABG O2 Saturation ABG Base Excess ABG Hemoglobin VBG pH Oxyhemoglobin Sodium Potassium Chloride Carbon Dioxide BUN Creatinine Glucose POC Glucose 125 H 110 H 153 H Lactic Acid Calcium Phosphorus Total Bilirubin AST ALT C-Reactive Protein Total Protein Albumin Triglycerides Amylase Lipase Urine WBC (Auto) Vancomycin Trough Crossmatch 12/23/17 12/23/17 12/23/17 04:33 05:28 09:25 WBC 31.4 H RBC 3.05 L Hgb 9.8 L Hct 30.2 L MCV 99 H MCH MCHC RDW 12.9 L Plt Count 101 L Lymph % (Auto) Eos % (Auto) [place] # Eos # Baso # Seg Neutrophils % Seg Neuts % (Manual) 97 H Lymphocytes % (Manual) 2 L Monocytes % (Manual) Eosinophils % (Manual) Nucleated RBC % Seg Neutrophils # Seg Neutrophils # Man 31.1 H Lymphocytes # (Manual) 0.5 L Monocytes # (Manual) Eosinophils # (Manual) APTT POC ABG pH 7.573 H ABG pH POC ABG pCO2 31.0 L POC ABG pO2 63 L ABG pO2 ABG HCO3 ABG O2 Saturation ABG Base Excess ABG Hemoglobin VBG pH Oxyhemoglobin Sodium Potassium Chloride Carbon Dioxide BUN Creatinine Glucose POC Glucose 124 H Lactic Acid Calcium Phosphorus Total Bilirubin AST ALT C-Reactive Protein Total Protein Albumin Triglycerides Amylase Lipase Urine WBC (Auto) Vancomycin Trough Crossmatch 12/23/17 12/23/17 12/23/17 09:25 10:08 14:20 WBC RBC Hgb Hct MCV MCH MCHC RDW Plt Count Lymph % (Auto) Eos % (Auto) [place] # Eos # Baso # Seg Neutrophils % Seg Neuts % (Manual) Lymphocytes % (Manual) Monocytes % (Manual) Eosinophils % (Manual) Nucleated RBC % Seg Neutrophils # Seg Neutrophils # Man Lymphocytes # (Manual) Monocytes # (Manual) Eosinophils # (Manual) APTT POC ABG pH ABG pH POC ABG pCO2 POC ABG pO2 ABG pO2 ABG HCO3 ABG O2 Saturation ABG Base Excess ABG Hemoglobin VBG pH Oxyhemoglobin Sodium Potassium 3.1 L Chloride Carbon Dioxide BUN Creatinine 0.6 L Glucose 169 H POC Glucose 171 H 211 H Lactic Acid Calcium 7.9 L Phosphorus Total Bilirubin AST ALT C-Reactive Protein Total Protein Albumin Triglycerides Amylase Lipase Urine WBC (Auto) Vancomycin Trough Crossmatch 12/23/17 12/23/17 12/24/17 18:59 21:49 01:47 WBC RBC Hgb Hct MCV MCH MCHC RDW Plt Count Lymph % (Auto) Eos % (Auto) [place] # Eos # Baso # Seg Neutrophils % Seg Neuts % (Manual) Lymphocytes % (Manual) Monocytes % (Manual) Eosinophils % (Manual) Nucleated RBC % Seg Neutrophils # Seg Neutrophils # Man Lymphocytes # (Manual) Monocytes # (Manual) Eosinophils # (Manual) APTT POC ABG pH ABG pH POC ABG pCO2 POC ABG pO2 ABG pO2 ABG HCO3 ABG O2 Saturation ABG Base Excess ABG Hemoglobin VBG pH Oxyhemoglobin Sodium Potassium Chloride Carbon Dioxide BUN Creatinine Glucose POC Glucose 175 H 146 H 143 H Lactic Acid Calcium Phosphorus Total Bilirubin AST ALT C-Reactive Protein Total Protein Albumin Triglycerides Amylase Lipase Urine WBC (Auto) Vancomycin Trough Crossmatch 12/24/17 12/24/17 12/24/17 05:40 10:12 13:12 WBC RBC Hgb Hct MCV MCH MCHC RDW Plt Count Lymph % (Auto) Eos % (Auto) [place] # Eos # Baso # Seg Neutrophils % Seg Neuts % (Manual) Lymphocytes % (Manual) Monocytes % (Manual) Eosinophils % (Manual) Nucleated RBC % Seg Neutrophils # Seg Neutrophils # Man Lymphocytes # (Manual) Monocytes # (Manual) Eosinophils # (Manual) APTT POC ABG pH 7.558 H ABG pH POC ABG pCO2 27.6 L POC ABG pO2 71 L ABG pO2 ABG HCO3 ABG O2 Saturation ABG Base Excess ABG Hemoglobin VBG pH Oxyhemoglobin Sodium Potassium Chloride Carbon Dioxide BUN Creatinine Glucose POC Glucose 118 H 111 H Lactic Acid Calcium Phosphorus Total Bilirubin AST ALT C-Reactive Protein Total Protein Albumin Triglycerides Amylase Lipase Urine WBC (Auto) Vancomycin Trough Crossmatch 12/24/17 12/24/17 12/24/17 16:26 20:44 21:49 WBC RBC Hgb Hct MCV MCH MCHC RDW Plt Count Lymph % (Auto) Eos % (Auto) [place] # Eos # Baso # Seg Neutrophils % Seg Neuts % (Manual) Lymphocytes % (Manual) Monocytes % (Manual) Eosinophils % (Manual) Nucleated RBC % Seg Neutrophils # Seg Neutrophils # Man Lymphocytes # (Manual) Monocytes # (Manual) Eosinophils # (Manual) APTT POC ABG pH ABG pH POC ABG pCO2 POC ABG pO2 ABG pO2 ABG HCO3 ABG O2 Saturation ABG Base Excess ABG Hemoglobin VBG pH Oxyhemoglobin Sodium Potassium Chloride Carbon Dioxide BUN Creatinine Glucose POC Glucose 113 H 124 H 115 H Lactic Acid Calcium Phosphorus Total Bilirubin AST ALT C-Reactive Protein Total Protein Albumin Triglycerides Amylase Lipase Urine WBC (Auto) Vancomycin Trough Crossmatch 12/24/17 12/25/17 12/25/17 Unknown 02:26 03:38 WBC RBC Hgb Hct MCV MCH MCHC RDW Plt Count Lymph % (Auto) Eos % (Auto) [place] # Eos # Baso # Seg Neutrophils % Seg Neuts % (Manual) Lymphocytes % (Manual) Monocytes % (Manual) Eosinophils % (Manual) Nucleated RBC % Seg Neutrophils # Seg Neutrophils # Man Lymphocytes # (Manual) Monocytes # (Manual) Eosinophils # (Manual) APTT POC ABG pH 7.503 H ABG pH POC ABG pCO2 POC ABG pO2 66 L ABG pO2 ABG HCO3 ABG O2 Saturation ABG Base Excess ABG Hemoglobin VBG pH Oxyhemoglobin Sodium Potassium 3.0 L Chloride Carbon Dioxide BUN Creatinine 0.5 L Glucose 166 H POC Glucose 106 H Lactic Acid Calcium 7.8 L Phosphorus Total Bilirubin AST ALT C-Reactive Protein Total Protein Albumin Triglycerides Amylase Lipase Urine WBC (Auto) Vancomycin Trough Crossmatch 12/25/17 12/25/17 12/25/17 04:58 12:58 15:06 WBC RBC Hgb Hct MCV MCH MCHC RDW Plt Count Lymph % (Auto) Eos % (Auto) [place] # Eos # Baso # Seg Neutrophils % Seg Neuts % (Manual) Lymphocytes % (Manual) Monocytes % (Manual) Eosinophils % (Manual) Nucleated RBC % Seg Neutrophils # Seg Neutrophils # Man Lymphocytes # (Manual) Monocytes # (Manual) Eosinophils # (Manual) APTT POC ABG pH ABG pH POC ABG pCO2 POC ABG pO2 ABG pO2 ABG HCO3 ABG O2 Saturation ABG Base Excess ABG Hemoglobin VBG pH Oxyhemoglobin Sodium Potassium Chloride Carbon Dioxide BUN Creatinine Glucose POC Glucose 113 H 118 H Lactic Acid Calcium Phosphorus Total Bilirubin AST ALT C-Reactive Protein Total Protein Albumin Triglycerides Amylase Lipase Urine WBC (Auto) Vancomycin Trough 22.5 H Crossmatch 12/25/17 12/25/17 12/25/17 17:59 21:33 Unknown WBC 20.5 H RBC 2.75 L Hgb 9.1 L Hct 27.1 L MCV 99 H MCH 33 H MCHC RDW Plt Count 126 L Lymph % (Auto) Eos % (Auto) [place] # Eos # Baso # Seg Neutrophils % Seg Neuts % (Manual) 89.0 H Lymphocytes % (Manual) 6.0 L Monocytes % (Manual) Eosinophils % (Manual) Nucleated RBC % Seg Neutrophils # Seg Neutrophils # Man 18.2 H Lymphocytes # (Manual) Monocytes # (Manual) Eosinophils # (Manual) APTT POC ABG pH ABG pH POC ABG pCO2 POC ABG pO2 ABG pO2 ABG HCO3 ABG O2 Saturation ABG Base Excess ABG Hemoglobin VBG pH Oxyhemoglobin Sodium Potassium Chloride Carbon Dioxide BUN Creatinine Glucose POC Glucose 145 H 167 H Lactic Acid Calcium Phosphorus Total Bilirubin AST ALT C-Reactive Protein Total Protein Albumin Triglycerides Amylase Lipase Urine WBC (Auto) Vancomycin Trough Crossmatch 12/25/17 12/26/1712/26/18 Unknown 02:26 05:29 WBC RBC Hgb Hct MCV MCH MCHC RDW Plt Count Lymph % (Auto) Eos % (Auto) [place] # Eos # Baso # Seg Neutrophils % Seg Neuts % (Manual) Lymphocytes % (Manual) Monocytes % (Manual) Eosinophils % (Manual) Nucleated RBC % Seg Neutrophils # Seg Neutrophils # Man Lymphocytes # (Manual) Monocytes # (Manual) Eosinophils # (Manual) APTT POC ABG pH ABG pH POC ABG pCO2 POC ABG pO2 ABG pO2 ABG HCO3 ABG O2 Saturation ABG Base Excess ABG Hemoglobin VBG pH Oxyhemoglobin Sodium Potassium 2.8 L* Chloride Carbon Dioxide BUN Creatinine 0.6 L Glucose POC Glucose 167 H 216 H Lactic Acid Calcium 7.4 L Phosphorus Total Bilirubin AST ALT C-Reactive Protein Total Protein Albumin Triglycerides Amylase Lipase Urine WBC (Auto) Vancomycin Trough Crossmatch 12/26/17 12/26/17 12/26/17 10:21 14:30 18:35 WBC RBC Hgb Hct MCV MCH MCHC RDW Plt Count Lymph % (Auto) Eos % (Auto) [place] # Eos # Baso # Seg Neutrophils % Seg Neuts % (Manual) Lymphocytes % (Manual) Monocytes % (Manual) Eosinophils % (Manual) Nucleated RBC % Seg Neutrophils # Seg Neutrophils # Man Lymphocytes # (Manual) Monocytes # (Manual) Eosinophils # (Manual) APTT POC ABG pH ABG pH POC ABG pCO2 POC ABG pO2 ABG pO2 ABG HCO3 ABG O2 Saturation ABG Base Excess ABG Hemoglobin VBG pH Oxyhemoglobin Sodium Potassium Chloride Carbon Dioxide BUN Creatinine Glucose POC Glucose 164 H 157 H 146 H Lactic Acid Calcium Phosphorus Total Bilirubin AST ALT C-Reactive Protein Total Protein Albumin Triglycerides Amylase Lipase Urine WBC (Auto) Vancomycin Trough Crossmatch 12/26/17 12/26/17 12/27/17 21:21 Unknown 01:54 WBC RBC Hgb Hct MCV MCH MCHC RDW Plt Count Lymph % (Auto) Eos % (Auto) [place] # Eos # Baso # Seg Neutrophils % Seg Neuts % (Manual) Lymphocytes % (Manual) Monocytes % (Manual) Eosinophils % (Manual) Nucleated RBC % Seg Neutrophils # Seg Neutrophils # Man Lymphocytes # (Manual) Monocytes # (Manual) Eosinophils # (Manual) APTT POC ABG pH ABG pH POC ABG pCO2 POC ABG pO2 ABG pO2 ABG HCO3 ABG O2 Saturation ABG Base Excess ABG Hemoglobin VBG pH Oxyhemoglobin Sodium Potassium 3.0 L Chloride Carbon Dioxide BUN Creatinine 0.5 L Glucose 166 H POC Glucose 132 H 157 H Lactic Acid Calcium 7.8 L Phosphorus Total Bilirubin AST ALT C-Reactive Protein Total Protein Albumin Triglycerides Amylase Lipase Urine WBC (Auto) Vancomycin Trough Crossmatch 12/27/17 12/27/17 12/27/17 05:20 05:20 05:44 WBC 26.4 H RBC 2.83 L Hgb 9.3 L Hct 27.6 L MCV 98 H MCH 33 H MCHC RDW Plt Count Lymph % (Auto) Eos % (Auto) [place] # Eos # Baso # Seg Neutrophils % Seg Neuts % (Manual) 85.0 H Lymphocytes % (Manual) 5.0 L Monocytes % (Manual) Eosinophils % (Manual) Nucleated RBC % Seg Neutrophils # Seg Neutrophils # Man 22.4 H Lymphocytes # (Manual) Monocytes # (Manual) Eosinophils # (Manual) 0.5 H APTT POC ABG pH ABG pH POC ABG pCO2 POC ABG pO2 ABG pO2 ABG HCO3 ABG O2 Saturation ABG Base Excess ABG Hemoglobin VBG pH Oxyhemoglobin Sodium Potassium 2.3 L* D Chloride Carbon Dioxide BUN 7 L Creatinine 0.6 L Glucose 123 H POC Glucose 128 H Lactic Acid Calcium 8.1 L Phosphorus Total Bilirubin AST ALT C-Reactive Protein Total Protein Albumin Triglycerides Amylase Lipase Urine WBC (Auto) Vancomycin Trough Crossmatch 12/27/17 12/27/17 12/27/17 10:04 14:44 15:30 WBC RBC Hgb Hct MCV MCH MCHC RDW Plt Count Lymph % (Auto) Eos % (Auto) [place] # Eos # Baso # Seg Neutrophils % Seg Neuts % (Manual) Lymphocytes % (Manual) Monocytes % (Manual) Eosinophils % (Manual) Nucleated RBC % Seg Neutrophils # Seg Neutrophils # Man Lymphocytes # (Manual) Monocytes # (Manual) Eosinophils # (Manual) APTT POC ABG pH ABG pH POC ABG pCO2 POC ABG pO2 ABG pO2 ABG HCO3 ABG O2 Saturation ABG Base Excess ABG Hemoglobin VBG pH Oxyhemoglobin Sodium Potassium 3.1 L D Chloride Carbon Dioxide BUN Creatinine Glucose POC Glucose 115 H 128 H Lactic Acid Calcium Phosphorus Total Bilirubin AST ALT C-Reactive Protein Total Protein Albumin Triglycerides Amylase Lipase Urine WBC (Auto) Vancomycin Trough Crossmatch 12/28/17 12/28/17 12/28/17 00:39 02:13 05:17 WBC RBC Hgb Hct MCV MCH MCHC RDW Plt Count Lymph % (Auto) Eos % (Auto) [place] # Eos # Baso # Seg Neutrophils % Seg Neuts % (Manual) Lymphocytes % (Manual) Monocytes % (Manual) Eosinophils % (Manual) Nucleated RBC % Seg Neutrophils # Seg Neutrophils # Man Lymphocytes # (Manual) Monocytes # (Manual) Eosinophils # (Manual) APTT POC ABG pH ABG pH 7.497 H POC ABG pCO2 POC ABG pO2 ABG pO2 71.4 L ABG HCO3 29.9 H ABG O2 Saturation ABG Base Excess 6.2 H ABG Hemoglobin 7.9 L VBG pH Oxyhemoglobin 94.9 L Sodium Potassium Chloride Carbon Dioxide BUN Creatinine Glucose POC Glucose 112 H 108 H Lactic Acid Calcium Phosphorus Total Bilirubin AST ALT C-Reactive Protein Total Protein Albumin Triglycerides Amylase Lipase Urine WBC (Auto) Vancomycin Trough Crossmatch 12/28/17 12/28/17 12/28/17 08:47 08:47 09:10 WBC 28.1 H RBC 2.76 L Hgb 9.1 L Hct 27.0 L MCV 98 H MCH 33 H MCHC RDW Plt Count Lymph % (Auto) Eos % (Auto) [place] # Eos # Baso # Seg Neutrophils % Seg Neuts % (Manual) Lymphocytes % (Manual) Monocytes % (Manual) Eosinophils % (Manual) Nucleated RBC % Seg Neutrophils # Seg Neutrophils # Man Lymphocytes # (Manual) Monocytes # (Manual) Eosinophils # (Manual) APTT POC ABG pH ABG pH POC ABG pCO2 POC ABG pO2 ABG pO2 ABG HCO3 ABG O2 Saturation ABG Base Excess ABG Hemoglobin VBG pH Oxyhemoglobin Sodium Potassium 2.2 L* D Chloride Carbon Dioxide BUN 5 L Creatinine 0.5 L Glucose 106 H POC Glucose Lactic Acid Calcium 8.3 L Phosphorus 2.20 L Total Bilirubin AST ALT C-Reactive Protein Total Protein Albumin Triglycerides Amylase Lipase Urine WBC (Auto) Vancomycin Trough Crossmatch 12/28/17 12/28/17 12/28/17 13:28 14:22 18:48 WBC RBC Hgb Hct MCV MCH MCHC RDW Plt Count Lymph % (Auto) Eos % (Auto) [place] # Eos # Baso # Seg Neutrophils % Seg Neuts % (Manual) Lymphocytes % (Manual) Monocytes % (Manual) Eosinophils % (Manual) Nucleated RBC % Seg Neutrophils # Seg Neutrophils # Man Lymphocytes # (Manual) Monocytes # (Manual) Eosinophils # (Manual) APTT POC ABG pH ABG pH 7.476 H POC ABG pCO2 POC ABG pO2 ABG pO2 167.7 H ABG HCO3 30.9 H ABG O2 Saturation 99.1 H ABG Base Excess 6.7 H ABG Hemoglobin 8.5 L VBG pH Oxyhemoglobin Sodium Potassium Chloride Carbon Dioxide BUN Creatinine Glucose POC Glucose 141 H 129 H Lactic Acid Calcium Phosphorus Total Bilirubin AST ALT C-Reactive Protein Total Protein Albumin Triglycerides Amylase Lipase Urine WBC (Auto) Vancomycin Trough Crossmatch 12/28/17 12/29/17 12/29/17 21:22 02:45 05:11 WBC RBC Hgb Hct MCV MCH MCHC RDW Plt Count Lymph % (Auto) Eos % (Auto) [place] # Eos # Baso # Seg Neutrophils % Seg Neuts % (Manual) Lymphocytes % (Manual) Monocytes % (Manual) Eosinophils % (Manual) Nucleated RBC % Seg Neutrophils # Seg Neutrophils # Man Lymphocytes # (Manual) Monocytes # (Manual) Eosinophils # (Manual) APTT POC ABG pH ABG pH POC ABG pCO2 POC ABG pO2 ABG pO2 ABG HCO3 ABG O2 Saturation ABG Base Excess ABG Hemoglobin VBG pH Oxyhemoglobin Sodium Potassium Chloride Carbon Dioxide BUN Creatinine Glucose POC Glucose 123 H 138 H 138 H Lactic Acid Calcium Phosphorus Total Bilirubin AST ALT C-Reactive Protein Total Protein Albumin Triglycerides Amylase Lipase Urine WBC (Auto) Vancomycin Trough Crossmatch 12/29/17 12/29/17 12/29/17 05:50 08:04 08:04 WBC 20.8 H RBC 2.26 L Hgb 7.5 L Hct 22.7 L MCV 100 H MCH 33 H MCHC RDW Plt Count Lymph % (Auto) Eos % (Auto) [place] # Eos # Baso # Seg Neutrophils % Seg Neuts % (Manual) 93.0 H Lymphocytes % (Manual) 2.0 L Monocytes % (Manual) Eosinophils % (Manual) Nucleated RBC % Seg Neutrophils # Seg Neutrophils # Man 19.3 H Lymphocytes # (Manual) 0.4 L Monocytes # (Manual) Eosinophils # (Manual) 0.7 H APTT POC ABG pH ABG pH 7.467 H POC ABG pCO2 POC ABG pO2 ABG pO2 ABG HCO3 28.2 H ABG O2 Saturation ABG Base Excess 4.0 H ABG Hemoglobin < 5.1 L VBG pH Oxyhemoglobin Sodium Potassium 3.0 L D Chloride Carbon Dioxide BUN Creatinine 0.5 L Glucose 147 H POC Glucose Lactic Acid Calcium 7.8 L Phosphorus Total Bilirubin AST ALT C-Reactive Protein Total Protein 5.6 L Albumin 2.4 L Triglycerides Amylase Lipase Urine WBC (Auto) Vancomycin Trough Crossmatch 12/29/17 12/29/17 12/29/17 08:20 10:59 14:09 WBC RBC Hgb Hct MCV MCH MCHC RDW Plt Count Lymph % (Auto) Eos % (Auto) [place] # Eos # Baso # Seg Neutrophils % Seg Neuts % (Manual) Lymphocytes % (Manual) Monocytes % (Manual) Eosinophils % (Manual) Nucleated RBC % Seg Neutrophils # Seg Neutrophils # Man Lymphocytes # (Manual) Monocytes # (Manual) Eosinophils # (Manual) APTT POC ABG pH ABG pH POC ABG pCO2 POC ABG pO2 ABG pO2 ABG HCO3 ABG O2 Saturation ABG Base Excess ABG Hemoglobin VBG pH Oxyhemoglobin Sodium Potassium Chloride Carbon Dioxide BUN Creatinine Glucose POC Glucose 153 H 186 H 183 H Lactic Acid Calcium Phosphorus Total Bilirubin AST ALT C-Reactive Protein Total Protein Albumin Triglycerides Amylase Lipase Urine WBC (Auto) Vancomycin Trough Crossmatch 12/29/17 12/29/17 12/29/17 18:03 22:05 22:56 WBC RBC Hgb Hct MCV MCH MCHC RDW Plt Count Lymph % (Auto) Eos % (Auto) [place] # Eos # Baso # Seg Neutrophils % Seg Neuts % (Manual) Lymphocytes % (Manual) Monocytes % (Manual) Eosinophils % (Manual) Nucleated RBC % Seg Neutrophils # Seg Neutrophils # Man Lymphocytes # (Manual) Monocytes # (Manual) Eosinophils # (Manual) APTT POC ABG pH ABG pH POC ABG pCO2 POC ABG pO2 ABG pO2 ABG HCO3 ABG O2 Saturation ABG Base Excess ABG Hemoglobin VBG pH Oxyhemoglobin Sodium Potassium Chloride Carbon Dioxide BUN Creatinine Glucose POC Glucose 159 H 146 H 179 H Lactic Acid Calcium Phosphorus Total Bilirubin AST ALT C-Reactive Protein Total Protein Albumin Triglycerides Amylase Lipase Urine WBC (Auto) Vancomycin Trough Crossmatch 12/30/17 12/30/17 12/30/17 02:03 04:50 04:50 WBC 18.3 H RBC 2.22 L Hgb 7.4 L Hct 23.0 L MCV 104 H MCH 33 H MCHC RDW Plt Count 137 L Lymph % (Auto) 9.0 L Eos % (Auto) [place] # Eos # 0.5 H Baso # Seg Neutrophils % 84.9 H Seg Neuts % (Manual) Lymphocytes % (Manual) Monocytes % (Manual) Eosinophils % (Manual) Nucleated RBC % Seg Neutrophils # 15.6 H Seg Neutrophils # Man Lymphocytes # (Manual) Monocytes # (Manual) Eosinophils # (Manual) APTT POC ABG pH ABG pH POC ABG pCO2 POC ABG pO2 ABG pO2 ABG HCO3 ABG O2 Saturation ABG Base Excess ABG Hemoglobin VBG pH Oxyhemoglobin Sodium 147 H Potassium 3.1 L D Chloride 107.5 H Carbon Dioxide BUN Creatinine 0.5 L Glucose 120 H POC Glucose 118 H Lactic Acid Calcium 7.4 L Phosphorus Total Bilirubin AST ALT C-Reactive Protein Total Protein Albumin Triglycerides Amylase Lipase Urine WBC (Auto) Vancomycin Trough Crossmatch 12/30/17 12/30/17 12/30/17 05:04 13:53 17:33 WBC RBC Hgb Hct MCV MCH MCHC RDW Plt Count Lymph % (Auto) Eos % (Auto) [place] # Eos # Baso # Seg Neutrophils % Seg Neuts % (Manual) Lymphocytes % (Manual) Monocytes % (Manual) Eosinophils % (Manual) Nucleated RBC % Seg Neutrophils # Seg Neutrophils # Man Lymphocytes # (Manual) Monocytes # (Manual) Eosinophils # (Manual) APTT POC ABG pH ABG pH POC ABG pCO2 POC ABG pO2 ABG pO2 ABG HCO3 ABG O2 Saturation ABG Base Excess ABG Hemoglobin VBG pH Oxyhemoglobin Sodium Potassium Chloride Carbon Dioxide BUN Creatinine Glucose POC Glucose 150 H 113 H 145 H Lactic Acid Calcium Phosphorus Total Bilirubin AST ALT C-Reactive Protein Total Protein Albumin Triglycerides Amylase Lipase Urine WBC (Auto) Vancomycin Trough Crossmatch 12/31/17 12/31/17 12/31/17 01:54 03:15 03:15 WBC 17.1 H RBC 2.08 L Hgb 6.9 L Hct 20.6 L MCV 99 H MCH 33 H MCHC RDW 13.1 L Plt Count Lymph % (Auto) 10.5 L Eos % (Auto) [place] # Eos # 0.6 H Baso # Seg Neutrophils % 82.3 H Seg Neuts % (Manual) Lymphocytes % (Manual) Monocytes % (Manual) Eosinophils % (Manual) Nucleated RBC % Seg Neutrophils # 14.0 H Seg Neutrophils # Man Lymphocytes # (Manual) Monocytes # (Manual) Eosinophils # (Manual) APTT POC ABG pH ABG pH POC ABG pCO2 POC ABG pO2 ABG pO2 ABG HCO3 ABG O2 Saturation ABG Base Excess ABG Hemoglobin VBG pH Oxyhemoglobin Sodium Potassium 3.5 L Chloride Carbon Dioxide BUN Creatinine 0.6 L Glucose POC Glucose 69 L Lactic Acid Calcium 7.8 L Phosphorus Total Bilirubin AST ALT C-Reactive Protein Total Protein Albumin Triglycerides Amylase Lipase Urine WBC (Auto) Vancomycin Trough Crossmatch 12/31/17 12/31/17 12/31/17 05:15 09:25 10:17 WBC RBC Hgb Hct MCV MCH MCHC RDW Plt Count Lymph % (Auto) Eos % (Auto) [place] # Eos # Baso # Seg Neutrophils % Seg Neuts % (Manual) Lymphocytes % (Manual) Monocytes % (Manual) Eosinophils % (Manual) Nucleated RBC % Seg Neutrophils # Seg Neutrophils # Man Lymphocytes # (Manual) Monocytes # (Manual) Eosinophils # (Manual) APTT POC ABG pH ABG pH 7.516 H POC ABG pCO2 POC ABG pO2 ABG pO2 69.2 L ABG HCO3 28.7 H ABG O2 Saturation ABG Base Excess 5.3 H ABG Hemoglobin 6.6 L VBG pH Oxyhemoglobin 93.8 L Sodium Potassium Chloride Carbon Dioxide BUN Creatinine Glucose POC Glucose 143 H Lactic Acid Calcium Phosphorus Total Bilirubin AST ALT C-Reactive Protein Total Protein Albumin Triglycerides Amylase Lipase Urine WBC (Auto) Vancomycin Trough Crossmatch See Detail 12/31/17 12/31/17 12/31/17 14:20 18:30 21:40 WBC RBC Hgb Hct MCV MCH MCHC RDW Plt Count Lymph % (Auto) Eos % (Auto) [place] # Eos # Baso # Seg Neutrophils % Seg Neuts % (Manual) Lymphocytes % (Manual) Monocytes % (Manual) Eosinophils % (Manual) Nucleated RBC % Seg Neutrophils # Seg Neutrophils # Man Lymphocytes # (Manual) Monocytes # (Manual) Eosinophils # (Manual) APTT POC ABG pH ABG pH POC ABG pCO2 POC ABG pO2 ABG pO2 ABG HCO3 ABG O2 Saturation ABG Base Excess ABG Hemoglobin VBG pH Oxyhemoglobin Sodium Potassium Chloride Carbon Dioxide BUN Creatinine Glucose POC Glucose 175 H 137 H 182 H Lactic Acid Calcium Phosphorus Total Bilirubin AST ALT C-Reactive Protein Total Protein Albumin Triglycerides Amylase Lipase Urine WBC (Auto) Vancomycin Trough Crossmatch 12/31/17 01/01/18 01/01/18 23:34 02:09 04:00 WBC 16.4 H RBC 2.41 L Hgb 7.8 L Hct 23.6 L MCV 98 H MCH 33 H MCHC RDW Plt Count Lymph % (Auto) 10.7 L Eos % (Auto) [place] # Eos # 0.7 H Baso # 0.2 H Seg Neutrophils % 79.0 H Seg Neuts % (Manual) Lymphocytes % (Manual) Monocytes % (Manual) Eosinophils % (Manual) Nucleated RBC % Seg Neutrophils # 12.9 H Seg Neutrophils # Man Lymphocytes # (Manual) Monocytes # (Manual) Eosinophils # (Manual) APTT POC ABG pH ABG pH POC ABG pCO2 POC ABG pO2 ABG pO2 ABG HCO3 ABG O2 Saturation ABG Base Excess ABG Hemoglobin VBG pH Oxyhemoglobin Sodium Potassium Chloride Carbon Dioxide BUN Creatinine Glucose POC Glucose 132 H 117 H Lactic Acid Calcium Phosphorus Total Bilirubin AST ALT C-Reactive Protein Total Protein Albumin Triglycerides Amylase Lipase Urine WBC (Auto) Vancomycin Trough Crossmatch 01/01/18 01/01/18 01/01/18 04:00 04:04 05:32 WBC RBC Hgb Hct MCV MCH MCHC RDW Plt Count Lymph % (Auto) Eos % (Auto) [place] # Eos # Baso # Seg Neutrophils % Seg Neuts % (Manual) Lymphocytes % (Manual) Monocytes % (Manual) Eosinophils % (Manual) Nucleated RBC % Seg Neutrophils # Seg Neutrophils # Man Lymphocytes # (Manual) Monocytes # (Manual) Eosinophils # (Manual) APTT POC ABG pH ABG pH 7.458 H POC ABG pCO2 POC ABG pO2 ABG pO2 67.5 L ABG HCO3 27.5 H ABG O2 Saturation 94.4 L ABG Base Excess 3.4 H ABG Hemoglobin 7.8 L VBG pH Oxyhemoglobin 92.1 L Sodium Potassium Chloride Carbon Dioxide BUN Creatinine 0.4 L Glucose 129 H POC Glucose 129 H Lactic Acid Calcium 7.9 L Phosphorus Total Bilirubin AST ALT C-Reactive Protein Total Protein Albumin Triglycerides Amylase Lipase Urine WBC (Auto) Vancomycin Trough Crossmatch 01/01/18 01/01/18 01/01/18 10:10 12:38 17:27 WBC RBC Hgb Hct MCV MCH MCHC RDW Plt Count Lymph % (Auto) Eos % (Auto) [place] # Eos # Baso # Seg Neutrophils % Seg Neuts % (Manual) Lymphocytes % (Manual) Monocytes % (Manual) Eosinophils % (Manual) Nucleated RBC % Seg Neutrophils # Seg Neutrophils # Man Lymphocytes # (Manual) Monocytes # (Manual) Eosinophils # (Manual) APTT POC ABG pH ABG pH POC ABG pCO2 POC ABG pO2 ABG pO2 ABG HCO3 ABG O2 Saturation ABG Base Excess ABG Hemoglobin VBG pH Oxyhemoglobin Sodium Potassium Chloride Carbon Dioxide BUN Creatinine Glucose POC Glucose 155 H 179 H 152 H Lactic Acid Calcium Phosphorus Total Bilirubin AST ALT C-Reactive Protein Total Protein Albumin Triglycerides Amylase Lipase Urine WBC (Auto) Vancomycin Trough Crossmatch 01/01/18 01/02/18 01/02/18 21:36 01:42 04:10 WBC 12.1 H RBC 2.29 L Hgb 7.5 L Hct 22.7 L MCV 99 H MCH 33 H MCHC RDW Plt Count Lymph % (Auto) Eos % (Auto) 5.5 H [place] # 0.9 H Eos # 0.7 H Baso # Seg Neutrophils % Seg Neuts % (Manual) Lymphocytes % (Manual) Monocytes % (Manual) Eosinophils % (Manual) Nucleated RBC % Seg Neutrophils # 8.3 H Seg Neutrophils # Man Lymphocytes # (Manual) Monocytes # (Manual) Eosinophils # (Manual) APTT POC ABG pH ABG pH POC ABG pCO2 POC ABG pO2 ABG pO2 ABG HCO3 ABG O2 Saturation ABG Base Excess ABG Hemoglobin VBG pH Oxyhemoglobin Sodium Potassium Chloride Carbon Dioxide BUN Creatinine Glucose POC Glucose 118 H 117 H Lactic Acid Calcium Phosphorus Total Bilirubin AST ALT C-Reactive Protein Total Protein Albumin Triglycerides Amylase Lipase Urine WBC (Auto) Vancomycin Trough Crossmatch 01/02/18 01/02/18 01/02/18 04:10 04:57 13:42 WBC RBC Hgb Hct MCV MCH MCHC RDW Plt Count Lymph % (Auto) Eos % (Auto) [place] # Eos # Baso # Seg Neutrophils % Seg Neuts % (Manual) Lymphocytes % (Manual) Monocytes % (Manual) Eosinophils % (Manual) Nucleated RBC % Seg Neutrophils # Seg Neutrophils # Man Lymphocytes # (Manual) Monocytes # (Manual) Eosinophils # (Manual) APTT POC ABG pH ABG pH POC ABG pCO2 POC ABG pO2 ABG pO2 ABG HCO3 ABG O2 Saturation ABG Base Excess ABG Hemoglobin VBG pH Oxyhemoglobin Sodium Potassium Chloride 97.0 L Carbon Dioxide BUN Creatinine 0.4 L Glucose POC Glucose 107 H 133 H Lactic Acid Calcium 8.1 L Phosphorus Total Bilirubin AST ALT C-Reactive Protein Total Protein 6.0 L Albumin 2.5 L Triglycerides Amylase Lipase Urine WBC (Auto) Vancomycin Trough Crossmatch 01/02/18 01/02/18 01/03/18 17:33 22:11 02:18 WBC RBC Hgb Hct MCV MCH MCHC RDW Plt Count Lymph % (Auto) Eos % (Auto) [place] # Eos # Baso # Seg Neutrophils % Seg Neuts % (Manual) Lymphocytes % (Manual) Monocytes % (Manual) Eosinophils % (Manual) Nucleated RBC % Seg Neutrophils # Seg Neutrophils # Man Lymphocytes # (Manual) Monocytes # (Manual) Eosinophils # (Manual) APTT POC ABG pH ABG pH POC ABG pCO2 POC ABG pO2 ABG pO2 ABG HCO3 ABG O2 Saturation ABG Base Excess ABG Hemoglobin VBG pH Oxyhemoglobin Sodium Potassium Chloride Carbon Dioxide BUN Creatinine Glucose POC Glucose 146 H 171 H 162 H Lactic Acid Calcium Phosphorus Total Bilirubin AST ALT C-Reactive Protein Total Protein Albumin Triglycerides Amylase Lipase Urine WBC (Auto) Vancomycin Trough Crossmatch 01/03/18 01/03/18 01/03/18 04:56 05:21 17:20 WBC RBC Hgb Hct MCV MCH MCHC RDW Plt Count Lymph % (Auto) Eos % (Auto) [place] # Eos # Baso # Seg Neutrophils % Seg Neuts % (Manual) Lymphocytes % (Manual) Monocytes % (Manual) Eosinophils % (Manual) Nucleated RBC % Seg Neutrophils # Seg Neutrophils # Man Lymphocytes # (Manual) Monocytes # (Manual) Eosinophils # (Manual) APTT POC ABG pH ABG pH POC ABG pCO2 POC ABG pO2 ABG pO2 79.5 L ABG HCO3 31.4 H ABG O2 Saturation ABG Base Excess 6.3 H ABG Hemoglobin 10.4 L VBG pH Oxyhemoglobin 94.2 L Sodium Potassium Chloride Carbon Dioxide BUN Creatinine Glucose POC Glucose 163 H 153 H Lactic Acid Calcium Phosphorus Total Bilirubin AST ALT C-Reactive Protein Total Protein Albumin Triglycerides Amylase Lipase Urine WBC (Auto) Vancomycin Trough Crossmatch 01/03/18 01/03/18 01/04/18 17:50 19:52 00:40 WBC RBC Hgb Hct MCV MCH MCHC RDW Plt Count Lymph % (Auto) Eos % (Auto) [place] # Eos # Baso # Seg Neutrophils % Seg Neuts % (Manual) Lymphocytes % (Manual) Monocytes % (Manual) Eosinophils % (Manual) Nucleated RBC % Seg Neutrophils # Seg Neutrophils # Man Lymphocytes # (Manual) Monocytes # (Manual) Eosinophils # (Manual) APTT POC ABG pH ABG pH POC ABG pCO2 POC ABG pO2 ABG pO2 ABG HCO3 ABG O2 Saturation ABG Base Excess ABG Hemoglobin VBG pH Oxyhemoglobin Sodium Potassium Chloride Carbon Dioxide BUN Creatinine Glucose POC Glucose 157 H 147 H 158 H Lactic Acid Calcium Phosphorus Total Bilirubin AST ALT C-Reactive Protein Total Protein Albumin Triglycerides Amylase Lipase Urine WBC (Auto) Vancomycin Trough Crossmatch 01/04/18 01/04/18 01/04/18 04:01 05:13 06:12 WBC 11.5 H RBC 2.95 L Hgb 9.8 L Hct 29.5 L D MCV 100 H MCH 33 H MCHC RDW Plt Count Lymph % (Auto) Eos % (Auto) [place] # Eos # Baso # Seg Neutrophils % Seg Neuts % (Manual) Lymphocytes % (Manual) Monocytes % (Manual) Eosinophils % (Manual) 6.0 H Nucleated RBC % Seg Neutrophils # Seg Neutrophils # Man Lymphocytes # (Manual) Monocytes # (Manual) Eosinophils # (Manual) 0.7 H APTT POC ABG pH ABG pH 7.498 H POC ABG pCO2 POC ABG pO2 ABG pO2 129.5 H ABG HCO3 30.1 H ABG O2 Saturation ABG Base Excess 6.4 H ABG Hemoglobin 9.3 L VBG pH Oxyhemoglobin Sodium Potassium Chloride Carbon Dioxide BUN Creatinine Glucose POC Glucose 163 H Lactic Acid Calcium Phosphorus Total Bilirubin AST ALT C-Reactive Protein Total Protein Albumin Triglycerides Amylase Lipase Urine WBC (Auto) Vancomycin Trough Crossmatch 01/04/18 01/04/18 01/04/18 06:12 10:55 14:29 WBC RBC Hgb Hct MCV MCH MCHC RDW Plt Count Lymph % (Auto) Eos % (Auto) [place] # Eos # Baso # Seg Neutrophils % Seg Neuts % (Manual) Lymphocytes % (Manual) Monocytes % (Manual) Eosinophils % (Manual) Nucleated RBC % Seg Neutrophils # Seg Neutrophils # Man Lymphocytes # (Manual) Monocytes # (Manual) Eosinophils # (Manual) APTT POC ABG pH ABG pH POC ABG pCO2 POC ABG pO2 ABG pO2 ABG HCO3 ABG O2 Saturation ABG Base Excess ABG Hemoglobin VBG pH Oxyhemoglobin Sodium Potassium Chloride Carbon Dioxide BUN Creatinine 0.5 L Glucose 174 H POC Glucose 187 H 144 H Lactic Acid Calcium Phosphorus Total Bilirubin AST 41 H ALT C-Reactive Protein Total Protein Albumin 2.9 L Triglycerides Amylase Lipase Urine WBC (Auto) Vancomycin Trough Crossmatch 01/04/18 01/04/18 01/05/18 17:25 21:56 01:59 WBC RBC Hgb Hct MCV MCH MCHC RDW Plt Count Lymph % (Auto) Eos % (Auto) [place] # Eos # Baso # Seg Neutrophils % Seg Neuts % (Manual) Lymphocytes % (Manual) Monocytes % (Manual) Eosinophils % (Manual) Nucleated RBC % Seg Neutrophils # Seg Neutrophils # Man Lymphocytes # (Manual) Monocytes # (Manual) Eosinophils # (Manual) APTT POC ABG pH ABG pH POC ABG pCO2 POC ABG pO2 ABG pO2 ABG HCO3 ABG O2 Saturation ABG Base Excess ABG Hemoglobin VBG pH Oxyhemoglobin Sodium Potassium Chloride Carbon Dioxide BUN Creatinine Glucose POC Glucose 156 H 171 H 162 H Lactic Acid Calcium Phosphorus Total Bilirubin AST ALT C-Reactive Protein Total Protein Albumin Triglycerides Amylase Lipase Urine WBC (Auto) Vancomycin Trough Crossmatch 01/05/18 01/05/18 01/05/18 03:50 06:00 06:07 WBC RBC Hgb Hct MCV MCH MCHC RDW Plt Count Lymph % (Auto) Eos % (Auto) [place] # Eos # Baso # Seg Neutrophils % Seg Neuts % (Manual) Lymphocytes % (Manual) Monocytes % (Manual) Eosinophils % (Manual) Nucleated RBC % Seg Neutrophils # Seg Neutrophils # Man Lymphocytes # (Manual) Monocytes # (Manual) Eosinophils # (Manual) APTT POC ABG pH ABG pH POC ABG pCO2 POC ABG pO2 ABG pO2 64.6 L ABG HCO3 30.2 H ABG O2 Saturation 91.3 L ABG Base Excess 5.5 H ABG Hemoglobin 10.1 L VBG pH Oxyhemoglobin 89.0 L Sodium Potassium Chloride Carbon Dioxide BUN Creatinine 0.4 L Glucose 144 H POC Glucose 136 H Lactic Acid Calcium Phosphorus Total Bilirubin AST ALT C-Reactive Protein Total Protein Albumin Triglycerides Amylase Lipase Urine WBC (Auto) Vancomycin Trough Crossmatch 01/05/18 01/05/18 01/05/18 10:46 14:03 17:31 WBC RBC Hgb Hct MCV MCH MCHC RDW Plt Count Lymph % (Auto) Eos % (Auto) [place] # Eos # Baso # Seg Neutrophils % Seg Neuts % (Manual) Lymphocytes % (Manual) Monocytes % (Manual) Eosinophils % (Manual) Nucleated RBC % Seg Neutrophils # Seg Neutrophils # Man Lymphocytes # (Manual) Monocytes # (Manual) Eosinophils # (Manual) APTT POC ABG pH ABG pH POC ABG pCO2 POC ABG pO2 ABG pO2 ABG HCO3 ABG O2 Saturation ABG Base Excess ABG Hemoglobin VBG pH Oxyhemoglobin Sodium Potassium Chloride Carbon Dioxide BUN Creatinine Glucose POC Glucose 147 H 141 H 192 H Lactic Acid Calcium Phosphorus Total Bilirubin AST ALT C-Reactive Protein Total Protein Albumin Triglycerides Amylase Lipase Urine WBC (Auto) Vancomycin Trough Crossmatch 01/05/18 01/05/18 01/06/18 22:12 Unknown 01:58 WBC RBC Hgb Hct MCV MCH MCHC RDW Plt Count Lymph % (Auto) Eos % (Auto) [place] # Eos # Baso # Seg Neutrophils % Seg Neuts % (Manual) Lymphocytes % (Manual) Monocytes % (Manual) Eosinophils % (Manual) Nucleated RBC % Seg Neutrophils # Seg Neutrophils # Man Lymphocytes # (Manual) Monocytes # (Manual) Eosinophils # (Manual) APTT POC ABG pH ABG pH 7.463 H POC ABG pCO2 POC ABG pO2 ABG pO2 74.0 L ABG HCO3 29.4 H ABG O2 Saturation ABG Base Excess 5.2 H ABG Hemoglobin 10.0 L VBG pH Oxyhemoglobin 93.4 L Sodium Potassium Chloride Carbon Dioxide BUN Creatinine Glucose POC Glucose 209 H 138 H Lactic Acid Calcium Phosphorus Total Bilirubin AST ALT C-Reactive Protein Total Protein Albumin Triglycerides Amylase Lipase Urine WBC (Auto) Vancomycin Trough Crossmatch 01/06/18 01/06/18 01/06/18 03:14 05:30 05:30 WBC 12.6 H RBC 3.16 L Hgb 10.4 L Hct 31.7 L MCV 100 H MCH 33 H MCHC RDW 15.5 H Plt Count Lymph % (Auto) Eos % (Auto) [place] # Eos # Baso # Seg Neutrophils % Seg Neuts % (Manual) 72.0 H Lymphocytes % (Manual) Monocytes % (Manual) 9.0 H Eosinophils % (Manual) Nucleated RBC % 1.0 H Seg Neutrophils # Seg Neutrophils # Man 9.1 H Lymphocytes # (Manual) Monocytes # (Manual) 1.1 H Eosinophils # (Manual) APTT POC ABG pH ABG pH POC ABG pCO2 POC ABG pO2 ABG pO2 ABG HCO3 28.8 H ABG O2 Saturation ABG Base Excess 4.2 H ABG Hemoglobin 9.3 L VBG pH Oxyhemoglobin 94.7 L Sodium 136 L Potassium Chloride 94.2 L Carbon Dioxide BUN Creatinine 0.4 L Glucose 146 H POC Glucose Lactic Acid Calcium Phosphorus Total Bilirubin AST ALT C-Reactive Protein Total Protein Albumin 3.1 L Triglycerides Amylase Lipase Urine WBC (Auto) Vancomycin Trough Crossmatch 01/06/18 01/06/18 01/06/18 05:42 10:00 14:40 WBC RBC Hgb Hct MCV MCH MCHC RDW Plt Count Lymph % (Auto) Eos % (Auto) [place] # Eos # Baso # Seg Neutrophils % Seg Neuts % (Manual) Lymphocytes % (Manual) Monocytes % (Manual) Eosinophils % (Manual) Nucleated RBC % Seg Neutrophils # Seg Neutrophils # Man Lymphocytes # (Manual) Monocytes # (Manual) Eosinophils # (Manual) APTT POC ABG pH ABG pH POC ABG pCO2 POC ABG pO2 ABG pO2 ABG HCO3 ABG O2 Saturation ABG Base Excess ABG Hemoglobin VBG pH Oxyhemoglobin Sodium Potassium Chloride Carbon Dioxide BUN Creatinine Glucose POC Glucose 158 H 155 H 115 H Lactic Acid Calcium Phosphorus Total Bilirubin AST ALT C-Reactive Protein Total Protein Albumin Triglycerides Amylase Lipase Urine WBC (Auto) Vancomycin Trough Crossmatch 01/06/18 01/06/18 01/07/18 17:45 21:59 05:29 WBC RBC Hgb Hct MCV MCH MCHC RDW Plt Count Lymph % (Auto) Eos % (Auto) [place] # Eos # Baso # Seg Neutrophils % Seg Neuts % (Manual) Lymphocytes % (Manual) Monocytes % (Manual) Eosinophils % (Manual) Nucleated RBC % Seg Neutrophils # Seg Neutrophils # Man Lymphocytes # (Manual) Monocytes # (Manual) Eosinophils # (Manual) APTT POC ABG pH ABG pH POC ABG pCO2 POC ABG pO2 ABG pO2 ABG HCO3 ABG O2 Saturation ABG Base Excess ABG Hemoglobin VBG pH Oxyhemoglobin Sodium Potassium Chloride Carbon Dioxide BUN Creatinine Glucose POC Glucose 156 H 177 H 179 H Lactic Acid Calcium Phosphorus Total Bilirubin AST ALT C-Reactive Protein Total Protein Albumin Triglycerides Amylase Lipase Urine WBC (Auto) Vancomycin Trough Crossmatch 01/07/18 01/07/18 01/07/18 10:00 14:32 18:05 WBC RBC Hgb Hct MCV MCH MCHC RDW Plt Count Lymph % (Auto) Eos % (Auto) [place] # Eos # Baso # Seg Neutrophils % Seg Neuts % (Manual) Lymphocytes % (Manual) Monocytes % (Manual) Eosinophils % (Manual) Nucleated RBC % Seg Neutrophils # Seg Neutrophils # Man Lymphocytes # (Manual) Monocytes # (Manual) Eosinophils # (Manual) APTT POC ABG pH ABG pH POC ABG pCO2 POC ABG pO2 ABG pO2 ABG HCO3 ABG O2 Saturation ABG Base Excess ABG Hemoglobin VBG pH Oxyhemoglobin Sodium Potassium Chloride Carbon Dioxide BUN Creatinine Glucose POC Glucose 131 H 177 H 143 H Lactic Acid Calcium Phosphorus Total Bilirubin AST ALT C-Reactive Protein Total Protein Albumin Triglycerides Amylase Lipase Urine WBC (Auto) Vancomycin Trough Crossmatch 01/07/18 01/08/18 01/08/18 22:11 02:26 05:37 WBC RBC Hgb Hct MCV MCH MCHC RDW Plt Count Lymph % (Auto) Eos % (Auto) [place] # Eos # Baso # Seg Neutrophils % Seg Neuts % (Manual) Lymphocytes % (Manual) Monocytes % (Manual) Eosinophils % (Manual) Nucleated RBC % Seg Neutrophils # Seg Neutrophils # Man Lymphocytes # (Manual) Monocytes # (Manual) Eosinophils # (Manual) APTT POC ABG pH ABG pH POC ABG pCO2 POC ABG pO2 ABG pO2 ABG HCO3 ABG O2 Saturation ABG Base Excess ABG Hemoglobin VBG pH Oxyhemoglobin Sodium Potassium Chloride Carbon Dioxide BUN Creatinine Glucose POC Glucose 133 H 194 H 106 H Lactic Acid Calcium Phosphorus Total Bilirubin AST ALT C-Reactive Protein Total Protein Albumin Triglycerides Amylase Lipase Urine WBC (Auto) Vancomycin Trough Crossmatch 01/08/18 01/08/18 01/08/18 09:41 10:45 10:45 WBC 11.6 H RBC 3.21 L Hgb 10.5 L Hct 32.0 L MCV 100 H MCH 33 H MCHC RDW 15.7 H Plt Count Lymph % (Auto) Eos % (Auto) [place] # Eos # Baso # Seg Neutrophils % Seg Neuts % (Manual) Lymphocytes % (Manual) Monocytes % (Manual) Eosinophils % (Manual) Nucleated RBC % Seg Neutrophils # Seg Neutrophils # Man Lymphocytes # (Manual) Monocytes # (Manual) Eosinophils # (Manual) APTT POC ABG pH ABG pH POC ABG pCO2 POC ABG pO2 ABG pO2 ABG HCO3 ABG O2 Saturation ABG Base Excess ABG Hemoglobin VBG pH Oxyhemoglobin Sodium Potassium Chloride 96.4 L Carbon Dioxide BUN Creatinine 0.4 L Glucose 146 H POC Glucose 142 H Lactic Acid Calcium Phosphorus Total Bilirubin AST ALT C-Reactive Protein Total Protein Albumin Triglycerides Amylase Lipase Urine WBC (Auto) Vancomycin Trough Crossmatch 01/08/18 01/08/18 01/08/18 14:31 17:20 21:46 WBC RBC Hgb Hct MCV MCH MCHC RDW Plt Count Lymph % (Auto) Eos % (Auto) [place] # Eos # Baso # Seg Neutrophils % Seg Neuts % (Manual) Lymphocytes % (Manual) Monocytes % (Manual) Eosinophils % (Manual) Nucleated RBC % Seg Neutrophils # Seg Neutrophils # Man Lymphocytes # (Manual) Monocytes # (Manual) Eosinophils # (Manual) APTT POC ABG pH ABG pH POC ABG pCO2 POC ABG pO2 ABG pO2 ABG HCO3 ABG O2 Saturation ABG Base Excess ABG Hemoglobin VBG pH Oxyhemoglobin Sodium Potassium Chloride Carbon Dioxide BUN Creatinine Glucose POC Glucose 158 H 160 H 166 H Lactic Acid Calcium Phosphorus Total Bilirubin AST ALT C-Reactive Protein Total Protein Albumin Triglycerides Amylase Lipase Urine WBC (Auto) Vancomycin Trough Crossmatch 01/09/18 01/09/18 01/09/18 02:01 04:30 04:30 WBC RBC 3.21 L Hgb 10.9 L Hct 31.7 L MCV 99 H MCH 34 H MCHC RDW 15.8 H Plt Count Lymph % (Auto) Eos % (Auto) [place] # Eos # Baso # Seg Neutrophils % Seg Neuts % (Manual) Lymphocytes % (Manual) Monocytes % (Manual) Eosinophils % (Manual) Nucleated RBC % Seg Neutrophils # Seg Neutrophils # Man Lymphocytes # (Manual) Monocytes # (Manual) Eosinophils # (Manual) APTT POC ABG pH ABG pH POC ABG pCO2 POC ABG pO2 ABG pO2 ABG HCO3 ABG O2 Saturation ABG Base Excess ABG Hemoglobin VBG pH Oxyhemoglobin Sodium 135 L Potassium Chloride 93.8 L Carbon Dioxide BUN Creatinine 0.5 L Glucose 137 H POC Glucose 155 H Lactic Acid Calcium Phosphorus Total Bilirubin AST ALT C-Reactive Protein Total Protein Albumin Triglycerides Amylase Lipase Urine WBC (Auto) Vancomycin Trough Crossmatch 01/09/18 01/09/18 05:42 10:41 WBC RBC Hgb Hct MCV MCH MCHC RDW Plt Count Lymph % (Auto) Eos % (Auto) [place] # Eos # Baso # Seg Neutrophils % Seg Neuts % (Manual) Lymphocytes % (Manual) Monocytes % (Manual) Eosinophils % (Manual) Nucleated RBC % Seg Neutrophils # Seg Neutrophils # Man Lymphocytes # (Manual) Monocytes # (Manual) Eosinophils # (Manual) APTT POC ABG pH ABG pH POC ABG pCO2 POC ABG pO2 ABG pO2 ABG HCO3 ABG O2 Saturation ABG Base Excess ABG Hemoglobin VBG pH Oxyhemoglobin Sodium Potassium Chloride Carbon Dioxide BUN Creatinine Glucose POC Glucose 142 H 187 H Lactic Acid Calcium Phosphorus Total Bilirubin AST ALT C-Reactive Protein Total Protein Albumin Triglycerides Amylase Lipase Urine WBC (Auto) Vancomycin Trough Crossmatch
[2018-01-09] MEDS: LOVENOX SUB-Q SCH (22:06)
[2018-01-10] MEDS: HumaLOG SUB-Q SCH ×5 (03:24→22:25)
[2018-01-10] MEDS: LIBRIUM PO SCH ×3 (05:43→18:38)
[2018-01-10] MEDS: DUONEB *Not for PRN Use IH SCH ×3 (07:55→19:56)
[2018-01-10] MEDS: LANTUS SUB-Q SCH (10:15)
[2018-01-10] MEDS: LOPRESSOR PO SCH ×2 (10:16→21:44)
[2018-01-10] MEDS: PEPCID PO SCH ×2 (10:17→21:44)
[2018-01-10] MEDS: SODIUM CHLORIDE FLUSH SYRINGE 10 ML IV SCH ×2 (10:17→21:45)
[2018-01-10] MEDS: POTASSIUM CHLORIDE PO SCH (10:17)
[2018-01-10] MEDS: VITAMIN B-1 PO SCH (10:17)
--- NOTE | 2018-01-10 14:25 | Progress Note ---
Assessment and Plan Assessment and plan: Acute hypoxic hypercapnic respiratory failure : Still intubated, on ventilator Vent dependent, unable to wean Continue Vent support, pulmonary following Considering tracheostomy and PEG. has not decided yet. Says she has to talk to family Anemia; s/p 1 Unit PRBC this admission. Sepsis Off antibiotics ,s/p Zyvox, Ccefepime and Flagyl, ID following Aspiration pneumonia. Completed Antibiotics ARDS Alcohol abuse: Continue thiamine, Librium as needed Thrombocytopenia, resolved. Plt count normal Moderate to Severe protein calorie malnutrition; nutrition supplements, tube feeding. Hypotension resolved. Off Levophed Diabetes mellitus type 2. On Lantus and sliding scale. DVT prophylaxis: Lovenox and SCDs Discussed with his at bedside. Still unable to wean off Vent History Interval history: Patient still intubated, Still on ventilator, no fever Hospitalist Physical - Physical exam Narrative exam: Gen appearance: Not in acute distress, lying in bed, Obese,intubated HEENT:Normocephalic, atraumatic Neck:supple, no JVD Lungs: Clear to auscultation bilaterally, no crackles , no wheeze Heart: S1 and S2 regular, no murmurs, rubs or gallop Abdomen: soft, non tender, non distended, normal bowel sounds, Ext: No edema, no clubbing, no cyanosis. Neuro: Intubated, sedated, - Constitutional Vitals: Temp Pulse Resp BP Pulse Ox 98.4 F 93 H 36 H 109/76 98 01/10/18 12:00 01/10/18 14:00 01/10/18 14:00 01/10/18 11:00 01/10/18 12:36 General appearance: Present: obese, other (intubated on vent) Results - Labs CBC & Chem 7: 01/09/18 04:30 01/09/18 04:30 Labs: Laboratory Last Values WBC 9.0 K/mm3 (4.5-11.0) 01/09/18 04:30 RBC 3.21 M/mm3 (3.65-5.03) L 01/09/18 04:30 Hgb 10.9 gm/dl (11.8-15.2) L 01/09/18 04:30 Hct 31.7 % (35.5-45.6) L 01/09/18 04:30 MCV 99 fl (84-94) H 01/09/18 04:30 MCH 34 pg (28-32) H 01/09/18 04:30 MCHC 34 % (32-34) 01/09/18 04:30 RDW 15.8 % (13.2-15.2) H 01/09/18 04:30 Plt Count 304 K/mm3 (140-440) 01/09/18 04:30 Lymph % (Auto) 18.5 % (13.4-35.0) 01/02/18 04:10 [place] % (Auto) 7.1 % (0.0-7.3) 01/02/18 04:10 Eos % (Auto) 5.5 % (0.0-4.3) H 01/02/18 04:10 Baso % (Auto) 0.3 % (0.0-1.8) 01/02/18 04:10 Lymph # 2.2 K/mm3 (1.2-5.4) 01/02/18 04:10 [place] # 0.9 K/mm3 (0.0-0.8) H 01/02/18 04:10 Eos # 0.7 K/mm3 (0.0-0.4) H 01/02/18 04:10 Baso # 0.0 K/mm3 (0.0-0.1) 01/02/18 04:10 Add Manual Diff Complete 01/06/18 05:30 Total Counted 100 01/06/18 05:30 Seg Neutrophils % 68.6 % (40.0-70.0) 01/02/18 04:10 Seg Neuts % (Manual) 72.0 % (40.0-70.0) H 01/06/18 05:30 Band Neutrophils % 0 % 01/06/18 05:30 Lymphocytes % (Manual) 17.0 % (13.4-35.0) 01/06/18 05:30 Reactive Lymphs % (Man) 0 % 01/06/18 05:30 Monocytes % (Manual) 9.0 % (0.0-7.3) H 01/06/18 05:30 Eosinophils % (Manual) 2.0 % (0.0-4.3) 01/06/18 05:30 Basophils % (Manual) 0 % (0.0-1.8) 01/06/18 05:30 Metamyelocytes % 0 % 01/06/18 05:30 Myelocytes % 0 % 01/06/18 05:30 Promyelocytes % 0 % 01/06/18 05:30 Blast Cells % 0 % 01/06/18 05:30 Nucleated RBC % 1.0 % (0.0-0.9) H 01/06/18 05:30 Seg Neutrophils # 8.3 K/mm3 (1.8-7.7) H 01/02/18 04:10 Seg Neutrophils # Man 9.1 K/mm3 (1.8-7.7) H 01/06/18 05:30 Band Neutrophils # 0.0 K/mm3 01/06/18 05:30 Lymphocytes # (Manual) 2.1 K/mm3 (1.2-5.4) 01/06/18 05:30 Abs React Lymphs (Man) 0.0 K/mm3 01/06/18 05:30 Monocytes # (Manual) 1.1 K/mm3 (0.0-0.8) H 01/06/18 05:30 Eosinophils # (Manual) 0.3 K/mm3 (0.0-0.4) 01/06/18 05:30 Basophils # (Manual) 0.0 K/mm3 (0.0-0.1) 01/06/18 05:30 Metamyelocytes # 0.0 K/mm3 01/06/18 05:30 Myelocytes # 0.0 K/mm3 01/06/18 05:30 Promyelocytes # 0.0 K/mm3 01/06/18 05:30 Blast Cells # 0.0 K/mm3 01/06/18 05:30 Pathologist Review 12/23/17 09:25 WBC Morphology Not Reportable 01/06/18 05:30 Hypersegmented Neuts Not Reportable 01/06/18 05:30 Hyposegmented Neuts Not Reportable 01/06/18 05:30 Hypogranular Neuts Not Reportable 01/06/18 05:30 Smudge Cells Not Reportable 01/06/18 05:30 Toxic Granulation Not Reportable 01/06/18 05:30 Toxic Vacuolation Not Reportable 01/06/18 05:30 Dohle Bodies Not Reportable 01/06/18 05:30 Pelger-Huet Anomaly Not Reportable 01/06/18 05:30 Mary Rods Not Reportable 01/06/18 05:30 Platelet Estimate Appears normal 01/06/18 05:30 Clumped Platelets Not Reportable 01/06/18 05:30 Plt Clumps, EDTA Not Reportable 01/06/18 05:30 Large Platelets Not Reportable 01/06/18 05:30 Giant Platelets Not Reportable 01/06/18 05:30 Platelet Satelliting Not Reportable 01/06/18 05:30 Plt Morphology Comment Not Reportable 01/06/18 05:30 RBC Morphology Not Reportable 01/06/18 05:30 Dimorphic RBCs Not Reportable 01/06/18 05:30 Polychromasia 1+ 01/06/18 05:30 Hypochromasia Not Reportable 01/06/18 05:30 Poikilocytosis Not Reportable 01/06/18 05:30 Anisocytosis 1+ 01/06/18 05:30 Microcytosis Not Reportable 01/06/18 05:30 Macrocytosis Few 01/06/18 05:30 Spherocytes Not Reportable 01/06/18 05:30 Pappenheimer Bodies Not Reportable 01/06/18 05:30 Sickle Cells Not Reportable 01/06/18 05:30 Target Cells Not Reportable 01/06/18 05:30 Tear Drop Cells Not Reportable 01/06/18 05:30 Ovalocytes Not Reportable 01/06/18 05:30 Stomatocytes 1+ 01/06/18 05:30 Helmet Cells Not Reportable 01/06/18 05:30 Arceo-Hugoton Bodies Not Reportable 01/06/18 05:30 P[place]roy Rings Not Reportable 01/06/18 05:30 Chidi Cells Not Reportable 01/06/18 05:30 Bite Cells Not Reportable 01/06/18 05:30 Crenated Cell Not Reportable 01/06/18 05:30 Elliptocytes Not Reportable 01/06/18 05:30 Acanthocytes (Spur) Not Reportable 01/06/18 05:30 Rouleaux Not Reportable 01/06/18 05:30 Hemoglobin C Crystals Not Reportable 01/06/18 05:30 Schistocytes Not Reportable 01/06/18 05:30 Malaria parasites Not Reportable 01/06/18 05:30 Vipul Bodies Not Reportable 01/06/18 05:30 Hem Pathologist Commnt No 01/06/18 05:30 PT 14.9 Sec. (12.2-14.9) 12/15/17 04:05 INR 1.11 (0.87-1.13) 12/15/17 04:05 APTT 20.9 Sec. (24.2-36.6) L 12/15/17 04:05 POC ABG pH 7.503 (7.35-7.45) H 12/25/17 03:38 ABG pH 7.441 pH Units (7.350-7.450) 01/06/18 03:14 POC ABG pCO2 35.8 (35-45) 12/25/17 03:38 ABG pCO2 43.2 mm Hg 01/06/18 03:14 POC ABG pO2 66 (80-105) L 12/25/17 03:38 ABG pO2 84.9 mm Hg (80.0-90.0) 01/06/18 03:14 POC ABG HCO3 28.1 12/25/17 03:38 ABG HCO3 28.8 mmol/L (20.0-26.0) H 01/06/18 03:14 POC ABG Total CO2 29 12/25/17 03:38 POC ABG O2 Sat 95 12/25/17 03:38 ABG O2 Saturation 97.0 % (95.0-99.0) 01/06/18 03:14 ABG O2 Content 12.6 (0.0-44) 01/06/18 03:14 POC ABG Base Excess 5 12/25/17 03:38 ABG Base Excess 4.2 mmol/L (-2.0-3.0) H 01/06/18 03:14 ABG Hemoglobin 9.3 gm/dl (14.0-18.0) L 01/06/18 03:14 ABG Carboxyhemoglobin 2.0 % (0.0-5.0) 01/06/18 03:14 ABG Methemoglobin 0.4 % (0.0-1.5) 01/06/18 03:14 VBG pH 7.472 (7.320-7.420) H 12/12/17 19:18 Oxyhemoglobin 94.7 % (95.0-99.0) L 01/06/18 03:14 FiO2 30 % 01/06/18 03:14 Sodium 135 mmol/L (137-145) L 01/09/18 04:30 Potassium 4.2 mmol/L (3.6-5.0) 01/09/18 04:30 Chloride 93.8 mmol/L (98-107) L 01/09/18 04:30 Carbon Dioxide 30 mmol/L (22-30) 01/09/18 04:30 Anion Gap 15 mmol/L 01/09/18 04:30 BUN 13 mg/dL (9-20) 01/09/18 04:30 Creatinine 0.5 mg/dL (0.8-1.5) L 01/09/18 04:30 Estimated GFR > 60 ml/min 01/09/18 04:30 BUN/Creatinine Ratio 26 % 01/09/18 04:30 Glucose 137 mg/dL (75-100) H 01/09/18 04:30 POC Glucose 162 (70-105) H 01/10/18 09:54 Lactic Acid 2.00 mmol/L (0.7-2.0) 12/13/17 19:38 Calcium 9.6 mg/dL (8.4-10.2) 01/09/18 04:30 Phosphorus 3.10 mg/dL (2.5-4.5) 01/06/18 05:30 Magnesium 1.90 mg/dL (1.7-2.3) 01/06/18 05:30 Total Bilirubin 0.40 mg/dL (0.1-1.2) 01/06/18 05:30 AST 30 units/L (5-40) 01/06/18 05:30 ALT 42 units/L (7-56) 01/06/18 05:30 Alkaline Phosphatase 74 units/L (35-129) 01/06/18 05:30 C-Reactive Protein 7.10 mg/dL (0.00-1.30) H 12/20/17 13:40 NT-Pro-B Natriuret Pep 409.9 pg/mL (0-450) 12/12/17 19:02 Total Protein 7.5 g/dL (6.3-8.2) 01/06/18 05:30 Albumin 3.1 g/dL (3.9-5) L 01/06/18 05:30 Albumin/Globulin Ratio 0.7 % 01/06/18 05:30 Triglycerides 1042 mg/dL (2-149) H 12/20/17 13:40 Amylase 20 units/L (27-131) L 12/13/17 13:47 Lipase 9 units/L (13-60) L 12/13/17 13:47 Urine Color [place] (Yellow) 12/15/17 17:00 Urine Turbidity Hazy (Clear) 12/15/17 17:00 Urine pH 6.0 (5.0-7.0) 12/15/17 17:00 Ur Specific [place] 1.027 (1.003-1.030) 12/15/17 17:00 Urine Protein 30 mg/dl mg/dL (Negative) 12/15/17 17:00 Urine Glucose (UA) Neg mg/dL (Negative) 12/15/17 17:00 Urine Ketones Tr mg/dL (Negative) 12/15/17 17:00 Urine Blood Lg (Negative) 12/15/17 17:00 Urine Nitrite Neg (Negative) 12/15/17 17:00 Urine Bilirubin Neg (Negative) 12/15/17 17:00 Urine Ictotest Positive (Negative) 12/12/17 20:42 Urine Urobilinogen < 2.0 mg/dL (<2.0) 12/15/17 17:00 Ur Leukocyte Esterase Tr (Negative) 12/15/17 17:00 Urine WBC (Auto) 38.0 /HPF (0.0-6.0) H 12/15/17 17:00 Urine RBC (Auto) 65.0 /HPF (0.0-6.0) 12/15/17 17:00 U Epithel Cells (Auto) < 1.0 /HPF (0-13.0) 12/12/17 20:42 Urine Bacteria (Auto) 1+ /HPF (Negative) 12/15/17 17:00 Urine Mucus 1+ /HPF 12/12/17 20:42 Vancomycin Trough 22.5 ug/mL (5.0-20.0) H 12/25/17 12:58 JERMAIN Screen Negative (Negative) 12/18/17 16:44 Proteinase 3 (PR3) Ab <1.0 AI (<1.0) 12/18/17 16:33 Myeloperoxidase Ab <1.0 AI (<1.0) 12/18/17 16:33 Complement C3 113 mg/dL (82-185) 12/18/17 16:33 Complement C4 15 mg/dL (15-53) 12/18/17 16:33 Hepatitis A IgM Ab Non-reactive (NonReactive) 12/20/17 13:40 Hep Bs Antigen Non-reactive (Negative) 12/20/17 13:40 Hep B Core IgM Ab Non-reactive (NonReactive) 12/20/17 13:40 Hepatitis C Antibody Non-reactive (NonReactive) 12/20/17 13:40 HIV 1&2 Antibody Rapid Non react (Non React) 12/20/17 13:40 HIV P24 Antigen Non react (Non React) 12/20/17 13:40 Influenza A (Rapid) Negative (Negative) 12/12/17 22:00 Influenza B (Rapid) Negative (Negative) 12/12/17 22:00 Urine Legionella Ag Not detected (Not Detected) 12/14/17 16:15 Miscellaneous Test Flexitest 1 12/14/17 16:15 Blood Type O POSITIVE 12/31/17 09:25 Antibody Screen Negative 12/31/17 09:25 Crossmatch See Detail 12/31/17 09:25
--- NOTE | 2018-01-10 15:02 | Progress Note ---
Assessment and Plan 47 y/o male with acute respiratory failure thought secondary to H. Flu now with H. Flu bacteremia, sepsis and persistent fevers. Unfortunately, no new recs or statements for today. not at bedside but will follow up either later today or tomorrow in regards to trach peg. 1. Acute respiratory failure. Patient re-intubated 12/28. Started with higher peeps as I feel some of the haze on his CXR is volume. Wean FiO2 first and then start weaning PEEP. Discussed the possibility of trach with . Given the patient's obesity, anxiety and possible underlying psych issues, may need a trach for safety. Continue to wean and attempt PSV trials when ready. Unfortunately, patient continues to fail PSV trials. Will need trach. On board with trach but has to revisit the feeding tube issue. Still no answer yet today. 2. Follow up any new ID recs 3. Monitor I/O. Patient is producing large amounts of urine. Could represent SIADH. BP stable but may need to replace 1:1 if this continues. Subjective Date of service: 01/10/18 Principal diagnosis: ARDS,Respiratory failure,pneumonia Interval history: No acute events. Tolerating PSV 15/5 but RR still in the 30's. Awake and alert. Following commands. Objective Vital Signs - 12hr 01/10/18 01/10/18 01/10/18 03:16 03:30 03:46 Temperature Pulse Rate 94 H 94 H 93 H Pulse Rate [ Anterior Bilateral Throughout] Pulse Rate [ From Monitor] Respiratory 22 26 H 22 Rate Respiratory Rate [Anterior Bilateral Throughout] Blood Pressure 114/76 114/76 114/76 O2 Sat by Pulse 95 95 96 Oximetry 01/10/18 01/10/18 01/10/18 04:00 04:16 04:19 Temperature 98.1 F Pulse Rate 97 H 96 H 95 H Pulse Rate [ Anterior Bilateral Throughout] Pulse Rate [ 97 H From Monitor] Respiratory 22 17 Rate Respiratory Rate [Anterior Bilateral Throughout] Blood Pressure 114/78 114/78 114/78 O2 Sat by Pulse 97 95 96 Oximetry 01/10/18 01/10/18 01/10/18 04:30 04:46 05:00 Temperature Pulse Rate 92 H 95 H 96 H Pulse Rate [ Anterior Bilateral Throughout] Pulse Rate [ From Monitor] Respiratory 20 20 21 Rate Respiratory Rate [Anterior Bilateral Throughout] Blood Pressure 114/78 114/78 111/77 O2 Sat by Pulse 97 97 97 Oximetry 01/10/18 01/10/18 01/10/18 05:16 05:30 05:46 Temperature Pulse Rate 97 H 98 H 99 H Pulse Rate [ Anterior Bilateral Throughout] Pulse Rate [ From Monitor] Respiratory 20 21 20 Rate Respiratory Rate [Anterior Bilateral Throughout] Blood Pressure 111/77 111/77 111/77 O2 Sat by Pulse 99 99 97 Oximetry 01/10/18 01/10/18 01/10/18 06:00 06:16 06:30 Temperature Pulse Rate 104 H 101 H 102 H Pulse Rate [ Anterior Bilateral Throughout] Pulse Rate [ From Monitor] Respiratory 23 24 18 Rate Respiratory Rate [Anterior Bilateral Throughout] Blood Pressure 116/80 116/80 116/80 O2 Sat by Pulse 96 96 95 Oximetry 01/10/18 01/10/18 01/10/18 06:46 07:00 07:16 Temperature Pulse Rate 98 H 100 H 96 H Pulse Rate [ Anterior Bilateral Throughout] Pulse Rate [ From Monitor] Respiratory 22 19 21 Rate Respiratory Rate [Anterior Bilateral Throughout] Blood Pressure 116/80 120/76 120/76 O2 Sat by Pulse 97 96 96 Oximetry 01/10/18 01/10/18 01/10/18 07:30 07:46 07:55 Temperature Pulse Rate 96 H 96 H Pulse Rate [ 97 H Anterior Bilateral Throughout] Pulse Rate [ From Monitor] Respiratory 26 H 22 Rate Respiratory 18 Rate [Anterior Bilateral Throughout] Blood Pressure 120/76 120/76 O2 Sat by Pulse 95 96 Oximetry 01/10/18 01/10/18 01/10/18 07:58 08:00 08:10 Temperature 98.9 F Pulse Rate 96 H 99 H Pulse Rate [ 101 H Anterior Bilateral Throughout] Pulse Rate [ 103 H From Monitor] Respiratory 25 H Rate Respiratory 18 Rate [Anterior Bilateral Throughout] Blood Pressure 120/76 107/73 O2 Sat by Pulse 96 94 Oximetry 01/10/18 01/10/18 01/10/18 08:16 08:30 08:46 Temperature Pulse Rate 102 H 104 H 105 H Pulse Rate [ Anterior Bilateral Throughout] Pulse Rate [ From Monitor] Respiratory 25 H 27 H 24 Rate Respiratory Rate [Anterior Bilateral Throughout] Blood Pressure 107/73 107/73 107/73 O2 Sat by Pulse 94 96 96 Oximetry 01/10/18 01/10/18 01/10/18 09:00 09:12 09:16 Temperature Pulse Rate 107 H 106 H Pulse Rate [ Anterior Bilateral Throughout] Pulse Rate [ From Monitor] Respiratory 28 H 31 H 38 H Rate Respiratory Rate [Anterior Bilateral Throughout] Blood Pressure 118/89 118/89 O2 Sat by Pulse 95 97 96 Oximetry 01/10/18 01/10/18 01/10/18 09:30 09:46 10:00 Temperature Pulse Rate 108 H 108 H 108 H Pulse Rate [ Anterior Bilateral Throughout] Pulse Rate [ From Monitor] Respiratory 22 28 H 20 Rate Respiratory Rate [Anterior Bilateral Throughout] Blood Pressure 118/89 118/89 110/77 O2 Sat by Pulse 97 97 Oximetry 01/10/18 01/10/18 01/10/18 10:16 10:30 10:46 Temperature Pulse Rate 104 H 103 H 104 H Pulse Rate [ Anterior Bilateral Throughout] Pulse Rate [ From Monitor] Respiratory 28 H 19 34 H Rate Respiratory Rate [Anterior Bilateral Throughout] Blood Pressure 120/78 120/78 120/78 O2 Sat by Pulse Oximetry 01/10/18 01/10/18 01/10/18 11:00 11:27 12:00 Temperature 98.4 F Pulse Rate 100 H Pulse Rate [ Anterior Bilateral Throughout] Pulse Rate [ 94 H From Monitor] Respiratory 32 H 47 H Rate Respiratory Rate [Anterior Bilateral Throughout] Blood Pressure 109/76 O2 Sat by Pulse 97 Oximetry 01/10/18 01/10/18 12:36 14:00 Temperature Pulse Rate 96 H Pulse Rate [ 93 H Anterior Bilateral Throughout] Pulse Rate [ From Monitor] Respiratory 37 H Rate Respiratory 36 H Rate [Anterior Bilateral Throughout] Blood Pressure O2 Sat by Pulse 98 Oximetry Constitutional: no acute distress, alert, asleep Eyes: non-icteric ENT: oropharynx moist, other (ETT at 24. ) Neck: no JVD Effort: normal Ascultation: Right: rales, Bilateral: clear, diminished breath sounds, wheezes ( mild), rhonchi (sporadic), other (coarse BS bilaterally) Percussion: Bilateral: not dull Tactile fremitus: Bilateral: normal Cardiovascular: regular rate and rhythm Gastrointestinal: hypoactive bowel sounds, non-tender, other (abdominal obesity) Integumentary: normal Extremities: no cyanosis, no ischemia or petechiae Neurologic: non-focal exam, pupils equal and round, CN II-XII normal Psychiatric: mood appropriate CBC and BMP: 01/09/18 04:30 01/09/18 04:30 ABG, PT/INR, D-dimer: ABG POC ABG pH 7.503 (7.35-7.45) H 12/25/17 03:38 ABG pH 7.441 pH Units (7.350-7.450) 01/06/18 03:14 POC ABG pCO2 35.8 (35-45) 12/25/17 03:38 ABG pCO2 43.2 mm Hg 01/06/18 03:14 POC ABG pO2 66 (80-105) L 12/25/17 03:38 ABG pO2 84.9 mm Hg (80.0-90.0) 01/06/18 03:14 POC ABG HCO3 28.1 12/25/17 03:38 POC ABG Total CO2 29 12/25/17 03:38 POC ABG O2 Sat 95 12/25/17 03:38 ABG O2 Saturation 97.0 % (95.0-99.0) 01/06/18 03:14 PT/INR, D-dimer PT 14.9 Sec. (12.2-14.9) 12/15/17 04:05 INR 1.11 (0.87-1.13) 12/15/17 04:05 Abnormal lab findings: Abnormal Labs 12/12/17 12/12/17 12/12/17 18:57 19:02 19:02 WBC RBC Hgb Hct MCV 96 H MCH 34 H MCHC 35 H RDW Plt Count 46 L Lymph % (Auto) Eos % (Auto) [place] # Eos # Baso # Seg Neutrophils % Seg Neuts % (Manual) 77.0 H Lymphocytes % (Manual) 13.0 L Monocytes % (Manual) Eosinophils % (Manual) Nucleated RBC % Seg Neutrophils # Seg Neutrophils # Man Lymphocytes # (Manual) 0.9 L Monocytes # (Manual) Eosinophils # (Manual) APTT POC ABG pH ABG pH POC ABG pCO2 POC ABG pO2 ABG pO2 ABG HCO3 ABG O2 Saturation ABG Base Excess ABG Hemoglobin VBG pH Oxyhemoglobin Sodium Potassium Chloride Carbon Dioxide BUN Creatinine Glucose POC Glucose 321 H Lactic Acid 4.00 H* Calcium Phosphorus Total Bilirubin AST ALT C-Reactive Protein Total Protein Albumin Triglycerides Amylase Lipase Urine WBC (Auto) Vancomycin Trough Crossmatch 12/12/17 12/12/17 12/12/17 19:02 19:18 20:55 WBC RBC Hgb Hct MCV MCH MCHC RDW Plt Count Lymph % (Auto) Eos % (Auto) [place] # Eos # Baso # Seg Neutrophils % Seg Neuts % (Manual) Lymphocytes % (Manual) Monocytes % (Manual) Eosinophils % (Manual) Nucleated RBC % Seg Neutrophils # Seg Neutrophils # Man Lymphocytes # (Manual) Monocytes # (Manual) Eosinophils # (Manual) APTT POC ABG pH ABG pH POC ABG pCO2 POC ABG pO2 ABG pO2 ABG HCO3 ABG O2 Saturation ABG Base Excess ABG Hemoglobin VBG pH 7.472 H Oxyhemoglobin Sodium 124 L Potassium Chloride 80.0 L Carbon Dioxide 20 L BUN Creatinine Glucose 382 H POC Glucose 283 H Lactic Acid Calcium 8.1 L Phosphorus Total Bilirubin 4.60 H AST 93 H ALT 112 H C-Reactive Protein Total Protein Albumin 2.5 L Triglycerides Amylase Lipase Urine WBC (Auto) Vancomycin Trough Crossmatch 12/12/17 12/13/17 12/13/17 21:41 00:45 01:29 WBC RBC Hgb Hct MCV MCH MCHC RDW Plt Count Lymph % (Auto) Eos % (Auto) [place] # Eos # Baso # Seg Neutrophils % Seg Neuts % (Manual) Lymphocytes % (Manual) Monocytes % (Manual) Eosinophils % (Manual) Nucleated RBC % Seg Neutrophils # Seg Neutrophils # Man Lymphocytes # (Manual) Monocytes # (Manual) Eosinophils # (Manual) APTT POC ABG pH ABG pH POC ABG pCO2 POC ABG pO2 ABG pO2 ABG HCO3 ABG O2 Saturation ABG Base Excess ABG Hemoglobin VBG pH Oxyhemoglobin Sodium Potassium Chloride Carbon Dioxide BUN Creatinine Glucose POC Glucose Lactic Acid 4.20 H* 2.70 H* 3.30 H* Calcium Phosphorus Total Bilirubin AST ALT C-Reactive Protein Total Protein Albumin Triglycerides Amylase Lipase Urine WBC (Auto) Vancomycin Trough Crossmatch 12/13/17 12/13/17 12/13/17 02:19 03:44 05:58 WBC RBC Hgb Hct MCV 97 H MCH 34 H MCHC 35 H RDW Plt Count 41 L Lymph % (Auto) Eos % (Auto) [place] # Eos # Baso # Seg Neutrophils % Seg Neuts % (Manual) Lymphocytes % (Manual) 8.0 L Monocytes % (Manual) 8.0 H Eosinophils % (Manual) Nucleated RBC % Seg Neutrophils # Seg Neutrophils # Man Lymphocytes # (Manual) 0.6 L Monocytes # (Manual) Eosinophils # (Manual) APTT POC ABG pH 7.334 L ABG pH POC ABG pCO2 POC ABG pO2 43 L ABG pO2 ABG HCO3 ABG O2 Saturation ABG Base Excess ABG Hemoglobin VBG pH Oxyhemoglobin Sodium Potassium Chloride Carbon Dioxide BUN Creatinine Glucose POC Glucose Lactic Acid 2.60 H* Calcium Phosphorus Total Bilirubin AST ALT C-Reactive Protein Total Protein Albumin Triglycerides Amylase Lipase Urine WBC (Auto) Vancomycin Trough Crossmatch 12/13/17 12/13/17 12/13/17 05:58 05:58 05:58 WBC RBC Hgb Hct MCV MCH MCHC RDW Plt Count Lymph % (Auto) Eos % (Auto) [place] # Eos # Baso # Seg Neutrophils % Seg Neuts % (Manual) Lymphocytes % (Manual) Monocytes % (Manual) Eosinophils % (Manual) Nucleated RBC % Seg Neutrophils # Seg Neutrophils # Man Lymphocytes # (Manual) Monocytes # (Manual) Eosinophils # (Manual) APTT POC ABG pH ABG pH POC ABG pCO2 POC ABG pO2 ABG pO2 ABG HCO3 ABG O2 Saturation ABG Base Excess ABG Hemoglobin VBG pH Oxyhemoglobin Sodium 132 L D Potassium Chloride 90.0 L Carbon Dioxide 20 L BUN Creatinine Glucose 346 H POC Glucose 298 H Lactic Acid 4.50 H* Calcium 8.2 L Phosphorus Total Bilirubin AST ALT C-Reactive Protein Total Protein Albumin Triglycerides Amylase Lipase Urine WBC (Auto) Vancomycin Trough Crossmatch 12/13/17 12/13/17 12/13/17 06:27 09:42 11:47 WBC RBC Hgb Hct MCV MCH MCHC RDW Plt Count Lymph % (Auto) Eos % (Auto) [place] # Eos # Baso # Seg Neutrophils % Seg Neuts % (Manual) Lymphocytes % (Manual) Monocytes % (Manual) Eosinophils % (Manual) Nucleated RBC % Seg Neutrophils # Seg Neutrophils # Man Lymphocytes # (Manual) Monocytes # (Manual) Eosinophils # (Manual) APTT POC ABG pH 7.267 L 7.298 L ABG pH POC ABG pCO2 50.4 H 51.3 H POC ABG pO2 47 L 43 L ABG pO2 ABG HCO3 ABG O2 Saturation ABG Base Excess ABG Hemoglobin VBG pH Oxyhemoglobin Sodium Potassium Chloride Carbon Dioxide BUN Creatinine Glucose POC Glucose 376 H Lactic Acid Calcium Phosphorus Total Bilirubin AST ALT C-Reactive Protein Total Protein Albumin Triglycerides Amylase Lipase Urine WBC (Auto) Vancomycin Trough Crossmatch 12/13/17 12/13/17 12/13/17 12:03 13:47 13:47 WBC RBC Hgb Hct MCV MCH MCHC RDW Plt Count Lymph % (Auto) Eos % (Auto) [place] # Eos # Baso # Seg Neutrophils % Seg Neuts % (Manual) Lymphocytes % (Manual) Monocytes % (Manual) Eosinophils % (Manual) Nucleated RBC % Seg Neutrophils # Seg Neutrophils # Man Lymphocytes # (Manual) Monocytes # (Manual) Eosinophils # (Manual) APTT POC ABG pH 7.264 L ABG pH POC ABG pCO2 54.9 H POC ABG pO2 55 L ABG pO2 ABG HCO3 ABG O2 Saturation ABG Base Excess ABG Hemoglobin VBG pH Oxyhemoglobin Sodium Potassium Chloride Carbon Dioxide BUN Creatinine Glucose POC Glucose Lactic Acid 2.80 H* Calcium Phosphorus Total Bilirubin AST ALT C-Reactive Protein Total Protein Albumin Triglycerides Amylase 20 L Lipase 9 L Urine WBC (Auto) Vancomycin Trough Crossmatch 12/13/17 12/13/17 12/13/17 15:36 17:39 21:47 WBC RBC Hgb Hct MCV MCH MCHC RDW Plt Count Lymph % (Auto) Eos % (Auto) [place] # Eos # Baso # Seg Neutrophils % Seg Neuts % (Manual) Lymphocytes % (Manual) Monocytes % (Manual) Eosinophils % (Manual) Nucleated RBC % Seg Neutrophils # Seg Neutrophils # Man Lymphocytes # (Manual) Monocytes # (Manual) Eosinophils # (Manual) APTT POC ABG pH 7.229 L 7.225 L ABG pH POC ABG pCO2 60.9 H 66.3 H POC ABG pO2 42 L 41 L ABG pO2 ABG HCO3 ABG O2 Saturation ABG Base Excess ABG Hemoglobin VBG pH Oxyhemoglobin Sodium Potassium Chloride Carbon Dioxide BUN Creatinine Glucose POC Glucose 289 H Lactic Acid Calcium Phosphorus Total Bilirubin AST ALT C-Reactive Protein Total Protein Albumin Triglycerides Amylase Lipase Urine WBC (Auto) Vancomycin Trough Crossmatch 12/13/17 12/14/17 12/14/17 22:19 02:03 05:16 WBC RBC Hgb Hct MCV MCH MCHC RDW Plt Count Lymph % (Auto) Eos % (Auto) [place] # Eos # Baso # Seg Neutrophils % Seg Neuts % (Manual) Lymphocytes % (Manual) Monocytes % (Manual) Eosinophils % (Manual) Nucleated RBC % Seg Neutrophils # Seg Neutrophils # Man Lymphocytes # (Manual) Monocytes # (Manual) Eosinophils # (Manual) APTT POC ABG pH 7.247 L ABG pH POC ABG pCO2 61.2 H POC ABG pO2 53 L ABG pO2 ABG HCO3 ABG O2 Saturation ABG Base Excess ABG Hemoglobin VBG pH Oxyhemoglobin Sodium Potassium Chloride Carbon Dioxide BUN Creatinine Glucose POC Glucose 274 H 295 H Lactic Acid Calcium Phosphorus Total Bilirubin AST ALT C-Reactive Protein Total Protein Albumin Triglycerides Amylase Lipase Urine WBC (Auto) Vancomycin Trough Crossmatch 12/14/17 12/14/17 12/14/17 05:32 12:04 16:22 WBC RBC Hgb Hct MCV MCH MCHC RDW Plt Count Lymph % (Auto) Eos % (Auto) [place] # Eos # Baso # Seg Neutrophils % Seg Neuts % (Manual) Lymphocytes % (Manual) Monocytes % (Manual) Eosinophils % (Manual) Nucleated RBC % Seg Neutrophils # Seg Neutrophils # Man Lymphocytes # (Manual) Monocytes # (Manual) Eosinophils # (Manual) APTT POC ABG pH ABG pH POC ABG pCO2 POC ABG pO2 ABG pO2 ABG HCO3 ABG O2 Saturation ABG Base Excess ABG Hemoglobin VBG pH Oxyhemoglobin Sodium Potassium Chloride Carbon Dioxide BUN Creatinine Glucose POC Glucose 230 H 241 H 231 H Lactic Acid Calcium Phosphorus Total Bilirubin AST ALT C-Reactive Protein Total Protein Albumin Triglycerides Amylase Lipase Urine WBC (Auto) Vancomycin Trough Crossmatch 12/14/17 12/15/17 12/15/17 21:29 02:29 03:25 WBC RBC Hgb Hct MCV MCH MCHC RDW Plt Count Lymph % (Auto) Eos % (Auto) [place] # Eos # Baso # Seg Neutrophils % Seg Neuts % (Manual) Lymphocytes % (Manual) Monocytes % (Manual) Eosinophils % (Manual) Nucleated RBC % Seg Neutrophils # Seg Neutrophils # Man Lymphocytes # (Manual) Monocytes # (Manual) Eosinophils # (Manual) APTT POC ABG pH 7.330 L ABG pH POC ABG pCO2 55.3 H POC ABG pO2 59 L ABG pO2 ABG HCO3 ABG O2 Saturation ABG Base Excess ABG Hemoglobin VBG pH Oxyhemoglobin Sodium Potassium Chloride Carbon Dioxide BUN Creatinine Glucose POC Glucose 258 H 246 H Lactic Acid Calcium Phosphorus Total Bilirubin AST ALT C-Reactive Protein Total Protein Albumin Triglycerides Amylase Lipase Urine WBC (Auto) Vancomycin Trough Crossmatch 12/15/17 12/15/17 12/15/17 04:05 04:05 04:05 WBC 15.0 H RBC 3.40 L Hgb 11.3 L D Hct 33.8 L D MCV 100 H MCH 33 H MCHC RDW Plt Count 48 L Lymph % (Auto) Eos % (Auto) [place] # Eos # Baso # Seg Neutrophils % Seg Neuts % (Manual) Lymphocytes % (Manual) 3.0 L Monocytes % (Manual) Eosinophils % (Manual) Nucleated RBC % 2.0 H Seg Neutrophils # Seg Neutrophils # Man Lymphocytes # (Manual) 0.5 L Monocytes # (Manual) 0.9 H Eosinophils # (Manual) APTT 20.9 L POC ABG pH ABG pH POC ABG pCO2 POC ABG pO2 ABG pO2 ABG HCO3 ABG O2 Saturation ABG Base Excess ABG Hemoglobin VBG pH Oxyhemoglobin Sodium Potassium Chloride Carbon Dioxide BUN 27 H Creatinine Glucose 258 H POC Glucose Lactic Acid Calcium 8.1 L Phosphorus Total Bilirubin AST ALT C-Reactive Protein Total Protein Albumin Triglycerides Amylase Lipase Urine WBC (Auto) Vancomycin Trough Crossmatch 12/15/17 12/15/17 12/15/17 05:32 11:17 14:59 WBC RBC Hgb Hct MCV MCH MCHC RDW Plt Count Lymph % (Auto) Eos % (Auto) [place] # Eos # Baso # Seg Neutrophils % Seg Neuts % (Manual) Lymphocytes % (Manual) Monocytes % (Manual) Eosinophils % (Manual) Nucleated RBC % Seg Neutrophils # Seg Neutrophils # Man Lymphocytes # (Manual) Monocytes # (Manual) Eosinophils # (Manual) APTT POC ABG pH ABG pH POC ABG pCO2 POC ABG pO2 ABG pO2 ABG HCO3 ABG O2 Saturation ABG Base Excess ABG Hemoglobin VBG pH Oxyhemoglobin Sodium Potassium Chloride Carbon Dioxide BUN Creatinine Glucose POC Glucose 247 H 268 H 233 H Lactic Acid Calcium Phosphorus Total Bilirubin AST ALT C-Reactive Protein Total Protein Albumin Triglycerides Amylase Lipase Urine WBC (Auto) Vancomycin Trough Crossmatch 12/15/17 12/15/17 12/15/17 17:00 18:59 21:37 WBC RBC Hgb Hct MCV MCH MCHC RDW Plt Count Lymph % (Auto) Eos % (Auto) [place] # Eos # Baso # Seg Neutrophils % Seg Neuts % (Manual) Lymphocytes % (Manual) Monocytes % (Manual) Eosinophils % (Manual) Nucleated RBC % Seg Neutrophils # Seg Neutrophils # Man Lymphocytes # (Manual) Monocytes # (Manual) Eosinophils # (Manual) APTT POC ABG pH ABG pH POC ABG pCO2 POC ABG pO2 ABG pO2 ABG HCO3 ABG O2 Saturation ABG Base Excess ABG Hemoglobin VBG pH Oxyhemoglobin Sodium Potassium Chloride Carbon Dioxide BUN Creatinine Glucose POC Glucose 195 H 208 H Lactic Acid Calcium Phosphorus Total Bilirubin AST ALT C-Reactive Protein Total Protein Albumin Triglycerides Amylase Lipase Urine WBC (Auto) 38.0 H Vancomycin Trough Crossmatch 12/16/17 12/16/17 12/16/17 03:17 03:33 04:18 WBC 16.4 H RBC 3.50 L Hgb 11.3 L Hct 35.4 L MCV 101 H MCH MCHC RDW Plt Count 54 L Lymph % (Auto) Eos % (Auto) [place] # Eos # Baso # Seg Neutrophils % Seg Neuts % (Manual) Lymphocytes % (Manual) Monocytes % (Manual) Eosinophils % (Manual) Nucleated RBC % Seg Neutrophils # Seg Neutrophils # Man Lymphocytes # (Manual) Monocytes # (Manual) Eosinophils # (Manual) APTT POC ABG pH ABG pH POC ABG pCO2 47.7 H POC ABG pO2 ABG pO2 ABG HCO3 ABG O2 Saturation ABG Base Excess ABG Hemoglobin VBG pH Oxyhemoglobin Sodium Potassium Chloride Carbon Dioxide BUN Creatinine Glucose POC Glucose 227 H Lactic Acid Calcium Phosphorus Total Bilirubin AST ALT C-Reactive Protein Total Protein Albumin Triglycerides Amylase Lipase Urine WBC (Auto) Vancomycin Trough Crossmatch 12/16/17 12/16/17 12/16/17 04:18 05:08 10:01 WBC RBC Hgb Hct MCV MCH MCHC RDW Plt Count Lymph % (Auto) Eos % (Auto) [place] # Eos # Baso # Seg Neutrophils % Seg Neuts % (Manual) Lymphocytes % (Manual) Monocytes % (Manual) Eosinophils % (Manual) Nucleated RBC % Seg Neutrophils # Seg Neutrophils # Man Lymphocytes # (Manual) Monocytes # (Manual) Eosinophils # (Manual) APTT POC ABG pH ABG pH POC ABG pCO2 POC ABG pO2 ABG pO2 ABG HCO3 ABG O2 Saturation ABG Base Excess ABG Hemoglobin VBG pH Oxyhemoglobin Sodium 147 H Potassium Chloride 107.4 H Carbon Dioxide BUN 28 H Creatinine Glucose 240 H POC Glucose 227 H 190 H Lactic Acid Calcium 8.3 L Phosphorus Total Bilirubin AST ALT C-Reactive Protein Total Protein Albumin Triglycerides Amylase Lipase Urine WBC (Auto) Vancomycin Trough Crossmatch 12/16/17 12/16/17 12/16/17 14:15 17:51 21:14 WBC RBC Hgb Hct MCV MCH MCHC RDW Plt Count Lymph % (Auto) Eos % (Auto) [place] # Eos # Baso # Seg Neutrophils % Seg Neuts % (Manual) Lymphocytes % (Manual) Monocytes % (Manual) Eosinophils % (Manual) Nucleated RBC % Seg Neutrophils # Seg Neutrophils # Man Lymphocytes # (Manual) Monocytes # (Manual) Eosinophils # (Manual) APTT POC ABG pH ABG pH POC ABG pCO2 POC ABG pO2 ABG pO2 ABG HCO3 ABG O2 Saturation ABG Base Excess ABG Hemoglobin VBG pH Oxyhemoglobin Sodium Potassium Chloride Carbon Dioxide BUN Creatinine Glucose POC Glucose 279 H 272 H 260 H Lactic Acid Calcium Phosphorus Total Bilirubin AST ALT C-Reactive Protein Total Protein Albumin Triglycerides Amylase Lipase Urine WBC (Auto) Vancomycin Trough Crossmatch 12/17/17 12/17/17 12/17/17 02:41 04:28 04:28 WBC 19.1 H RBC 3.50 L Hgb 11.4 L Hct 35.3 L MCV 101 H MCH 33 H MCHC RDW Plt Count 65 L Lymph % (Auto) Eos % (Auto) [place] # Eos # Baso # Seg Neutrophils % Seg Neuts % (Manual) Lymphocytes % (Manual) Monocytes % (Manual) Eosinophils % (Manual) Nucleated RBC % Seg Neutrophils # Seg Neutrophils # Man Lymphocytes # (Manual) Monocytes # (Manual) Eosinophils # (Manual) APTT POC ABG pH ABG pH POC ABG pCO2 POC ABG pO2 ABG pO2 ABG HCO3 ABG O2 Saturation ABG Base Excess ABG Hemoglobin VBG pH Oxyhemoglobin Sodium 153 H Potassium Chloride 111.2 H Carbon Dioxide 31 H BUN 28 H Creatinine Glucose 248 H POC Glucose 300 H Lactic Acid Calcium Phosphorus Total Bilirubin AST ALT C-Reactive Protein Total Protein Albumin Triglycerides Amylase Lipase Urine WBC (Auto) Vancomycin Trough Crossmatch 12/17/17 12/17/17 12/17/17 05:15 05:38 10:16 WBC RBC Hgb Hct MCV MCH MCHC RDW Plt Count Lymph % (Auto) Eos % (Auto) [place] # Eos # Baso # Seg Neutrophils % Seg Neuts % (Manual) Lymphocytes % (Manual) Monocytes % (Manual) Eosinophils % (Manual) Nucleated RBC % Seg Neutrophils # Seg Neutrophils # Man Lymphocytes # (Manual) Monocytes # (Manual) Eosinophils # (Manual) APTT POC ABG pH ABG pH POC ABG pCO2 50.3 H POC ABG pO2 120 H ABG pO2 ABG HCO3 ABG O2 Saturation ABG Base Excess ABG Hemoglobin VBG pH Oxyhemoglobin Sodium Potassium Chloride Carbon Dioxide BUN Creatinine Glucose POC Glucose 231 H 196 H Lactic Acid Calcium Phosphorus Total Bilirubin AST ALT C-Reactive Protein Total Protein Albumin Triglycerides Amylase Lipase Urine WBC (Auto) Vancomycin Trough Crossmatch 12/17/17 12/17/17 12/17/17 14:22 18:14 21:35 WBC RBC Hgb Hct MCV MCH MCHC RDW Plt Count Lymph % (Auto) Eos % (Auto) [place] # Eos # Baso # Seg Neutrophils % Seg Neuts % (Manual) Lymphocytes % (Manual) Monocytes % (Manual) Eosinophils % (Manual) Nucleated RBC % Seg Neutrophils # Seg Neutrophils # Man Lymphocytes # (Manual) Monocytes # (Manual) Eosinophils # (Manual) APTT POC ABG pH ABG pH POC ABG pCO2 POC ABG pO2 ABG pO2 ABG HCO3 ABG O2 Saturation ABG Base Excess ABG Hemoglobin VBG pH Oxyhemoglobin Sodium Potassium Chloride Carbon Dioxide BUN Creatinine Glucose POC Glucose 234 H 215 H 159 H Lactic Acid Calcium Phosphorus Total Bilirubin AST ALT C-Reactive Protein Total Protein Albumin Triglycerides Amylase Lipase Urine WBC (Auto) Vancomycin Trough Crossmatch 12/18/17 12/18/17 12/18/17 00:53 02:58 06:03 WBC RBC Hgb Hct MCV MCH MCHC RDW Plt Count Lymph % (Auto) Eos % (Auto) [place] # Eos # Baso # Seg Neutrophils % Seg Neuts % (Manual) Lymphocytes % (Manual) Monocytes % (Manual) Eosinophils % (Manual) Nucleated RBC % Seg Neutrophils # Seg Neutrophils # Man Lymphocytes # (Manual) Monocytes # (Manual) Eosinophils # (Manual) APTT POC ABG pH ABG pH POC ABG pCO2 56.4 H POC ABG pO2 46 L ABG pO2 ABG HCO3 ABG O2 Saturation ABG Base Excess ABG Hemoglobin VBG pH Oxyhemoglobin Sodium Potassium Chloride Carbon Dioxide BUN Creatinine Glucose POC Glucose 176 H 143 H Lactic Acid Calcium Phosphorus Total Bilirubin AST ALT C-Reactive Protein Total Protein Albumin Triglycerides Amylase Lipase Urine WBC (Auto) Vancomycin Trough Crossmatch 12/18/17 12/18/17 12/18/17 07:59 09:20 09:20 WBC 27.4 H RBC 3.57 L Hgb 11.4 L Hct MCV 101 H MCH MCHC RDW Plt Count 64 L Lymph % (Auto) Eos % (Auto) [place] # Eos # Baso # Seg Neutrophils % Seg Neuts % (Manual) Lymphocytes % (Manual) Monocytes % (Manual) Eosinophils % (Manual) Nucleated RBC % Seg Neutrophils # Seg Neutrophils # Man Lymphocytes # (Manual) Monocytes # (Manual) Eosinophils # (Manual) APTT POC ABG pH ABG pH POC ABG pCO2 POC ABG pO2 ABG pO2 ABG HCO3 ABG O2 Saturation ABG Base Excess ABG Hemoglobin VBG pH Oxyhemoglobin Sodium 152 H Potassium Chloride 107.9 H Carbon Dioxide 34 H BUN 23 H Creatinine 0.7 L Glucose 181 H POC Glucose 197 H Lactic Acid Calcium Phosphorus Total Bilirubin AST ALT C-Reactive Protein Total Protein Albumin Triglycerides Amylase Lipase Urine WBC (Auto) Vancomycin Trough Crossmatch 12/18/17 12/18/17 12/18/17 10:22 15:03 18:15 WBC RBC Hgb Hct MCV MCH MCHC RDW Plt Count Lymph % (Auto) Eos % (Auto) [place] # Eos # Baso # Seg Neutrophils % Seg Neuts % (Manual) Lymphocytes % (Manual) Monocytes % (Manual) Eosinophils % (Manual) Nucleated RBC % Seg Neutrophils # Seg Neutrophils # Man Lymphocytes # (Manual) Monocytes # (Manual) Eosinophils # (Manual) APTT POC ABG pH ABG pH POC ABG pCO2 POC ABG pO2 ABG pO2 ABG HCO3 ABG O2 Saturation ABG Base Excess ABG Hemoglobin VBG pH Oxyhemoglobin Sodium Potassium Chloride Carbon Dioxide BUN Creatinine Glucose POC Glucose 195 H 225 H 238 H Lactic Acid Calcium Phosphorus Total Bilirubin AST ALT C-Reactive Protein Total Protein Albumin Triglycerides Amylase Lipase Urine WBC (Auto) Vancomycin Trough Crossmatch 12/18/17 12/18/17 12/19/17 18:29 21:53 00:18 WBC RBC Hgb Hct MCV MCH MCHC RDW Plt Count Lymph % (Auto) Eos % (Auto) [place] # Eos # Baso # Seg Neutrophils % Seg Neuts % (Manual) Lymphocytes % (Manual) Monocytes % (Manual) Eosinophils % (Manual) Nucleated RBC % Seg Neutrophils # Seg Neutrophils # Man Lymphocytes # (Manual) Monocytes # (Manual) Eosinophils # (Manual) APTT POC ABG pH 7.476 H ABG pH POC ABG pCO2 50.4 H POC ABG pO2 158 H ABG pO2 ABG HCO3 ABG O2 Saturation ABG Base Excess ABG Hemoglobin VBG pH Oxyhemoglobin Sodium Potassium Chloride Carbon Dioxide BUN Creatinine Glucose POC Glucose 231 H 263 H Lactic Acid Calcium Phosphorus Total Bilirubin AST ALT C-Reactive Protein Total Protein Albumin Triglycerides Amylase Lipase Urine WBC (Auto) Vancomycin Trough Crossmatch 12/19/17 12/19/17 12/19/17 02:09 04:07 04:07 WBC 25.9 H RBC 3.25 L Hgb 10.6 L Hct 32.8 L MCV 101 H MCH 33 H MCHC RDW Plt Count 67 L Lymph % (Auto) Eos % (Auto) [place] # Eos # Baso # Seg Neutrophils % Seg Neuts % (Manual) Lymphocytes % (Manual) 4.0 L Monocytes % (Manual) Eosinophils % (Manual) Nucleated RBC % Seg Neutrophils # Seg Neutrophils # Man 14.8 H Lymphocytes # (Manual) 1.0 L Monocytes # (Manual) Eosinophils # (Manual) APTT POC ABG pH ABG pH POC ABG pCO2 POC ABG pO2 ABG pO2 ABG HCO3 ABG O2 Saturation ABG Base Excess ABG Hemoglobin VBG pH Oxyhemoglobin Sodium 148 H Potassium Chloride Carbon Dioxide BUN 31 H Creatinine Glucose 314 H POC Glucose 300 H Lactic Acid Calcium 8.1 L Phosphorus Total Bilirubin AST ALT C-Reactive Protein Total Protein Albumin Triglycerides Amylase Lipase Urine WBC (Auto) Vancomycin Trough Crossmatch 12/19/17 12/19/17 12/19/17 05:15 05:41 07:57 WBC RBC Hgb Hct MCV MCH MCHC RDW Plt Count Lymph % (Auto) Eos % (Auto) [place] # Eos # Baso # Seg Neutrophils % Seg Neuts % (Manual) Lymphocytes % (Manual) Monocytes % (Manual) Eosinophils % (Manual) Nucleated RBC % Seg Neutrophils # Seg Neutrophils # Man Lymphocytes # (Manual) Monocytes # (Manual) Eosinophils # (Manual) APTT POC ABG pH 7.507 H ABG pH POC ABG pCO2 POC ABG pO2 ABG pO2 ABG HCO3 ABG O2 Saturation ABG Base Excess ABG Hemoglobin VBG pH Oxyhemoglobin Sodium Potassium Chloride Carbon Dioxide BUN Creatinine Glucose POC Glucose 331 H 307 H Lactic Acid Calcium Phosphorus Total Bilirubin AST ALT C-Reactive Protein Total Protein Albumin Triglycerides Amylase Lipase Urine WBC (Auto) Vancomycin Trough Crossmatch 12/19/17 12/19/17 12/19/17 10:21 14:48 17:59 WBC RBC Hgb Hct MCV MCH MCHC RDW Plt Count Lymph % (Auto) Eos % (Auto) [place] # Eos # Baso # Seg Neutrophils % Seg Neuts % (Manual) Lymphocytes % (Manual) Monocytes % (Manual) Eosinophils % (Manual) Nucleated RBC % Seg Neutrophils # Seg Neutrophils # Man Lymphocytes # (Manual) Monocytes # (Manual) Eosinophils # (Manual) APTT POC ABG pH ABG pH POC ABG pCO2 POC ABG pO2 ABG pO2 ABG HCO3 ABG O2 Saturation ABG Base Excess ABG Hemoglobin VBG pH Oxyhemoglobin Sodium Potassium Chloride Carbon Dioxide BUN Creatinine Glucose POC Glucose 358 H 327 H 355 H Lactic Acid Calcium Phosphorus Total Bilirubin AST ALT C-Reactive Protein Total Protein Albumin Triglycerides Amylase Lipase Urine WBC (Auto) Vancomycin Trough Crossmatch 12/19/17 12/20/17 12/20/17 21:38 02:21 03:42 WBC RBC Hgb Hct MCV MCH MCHC RDW Plt Count Lymph % (Auto) Eos % (Auto) [place] # Eos # Baso # Seg Neutrophils % Seg Neuts % (Manual) Lymphocytes % (Manual) Monocytes % (Manual) Eosinophils % (Manual) Nucleated RBC % Seg Neutrophils # Seg Neutrophils # Man Lymphocytes # (Manual) Monocytes # (Manual) Eosinophils # (Manual) APTT POC ABG pH 7.494 H ABG pH POC ABG pCO2 POC ABG pO2 ABG pO2 ABG HCO3 ABG O2 Saturation ABG Base Excess ABG Hemoglobin VBG pH Oxyhemoglobin Sodium Potassium Chloride Carbon Dioxide BUN Creatinine Glucose POC Glucose 329 H 354 H Lactic Acid Calcium Phosphorus Total Bilirubin AST ALT C-Reactive Protein Total Protein Albumin Triglycerides Amylase Lipase Urine WBC (Auto) Vancomycin Trough Crossmatch 12/20/17 12/20/17 12/20/17 04:08 04:08 04:08 WBC 22.7 H RBC 3.26 L Hgb 10.6 L Hct 32.9 L MCV 101 H MCH 33 H MCHC RDW Plt Count 78 L Lymph % (Auto) Eos % (Auto) [place] # Eos # Baso # Seg Neutrophils % Seg Neuts % (Manual) 80.0 H Lymphocytes % (Manual) 6.0 L Monocytes % (Manual) Eosinophils % (Manual) Nucleated RBC % Seg Neutrophils # Seg Neutrophils # Man 18.2 H Lymphocytes # (Manual) Monocytes # (Manual) Eosinophils # (Manual) APTT POC ABG pH ABG pH POC ABG pCO2 POC ABG pO2 ABG pO2 ABG HCO3 ABG O2 Saturation ABG Base Excess ABG Hemoglobin VBG pH Oxyhemoglobin Sodium Potassium Chloride Carbon Dioxide 31 H BUN 30 H Creatinine 0.6 L Glucose 365 H POC Glucose Lactic Acid Calcium Phosphorus Total Bilirubin AST ALT C-Reactive Protein Total Protein Albumin Triglycerides 981 H Amylase Lipase Urine WBC (Auto) Vancomycin Trough Crossmatch 12/20/17 12/20/17 12/20/17 05:15 10:47 13:40 WBC RBC Hgb Hct MCV MCH MCHC RDW Plt Count Lymph % (Auto) Eos % (Auto) [place] # Eos # Baso # Seg Neutrophils % Seg Neuts % (Manual) Lymphocytes % (Manual) Monocytes % (Manual) Eosinophils % (Manual) Nucleated RBC % Seg Neutrophils # Seg Neutrophils # Man Lymphocytes # (Manual) Monocytes # (Manual) Eosinophils # (Manual) APTT POC ABG pH ABG pH POC ABG pCO2 POC ABG pO2 ABG pO2 ABG HCO3 ABG O2 Saturation ABG Base Excess ABG Hemoglobin VBG pH Oxyhemoglobin Sodium Potassium Chloride Carbon Dioxide BUN Creatinine Glucose POC Glucose 342 H 330 H Lactic Acid Calcium Phosphorus Total Bilirubin AST ALT C-Reactive Protein 7.10 H Total Protein Albumin Triglycerides Amylase Lipase Urine WBC (Auto) Vancomycin Trough Crossmatch 12/20/17 12/20/17 12/20/17 13:40 14:52 16:55 WBC RBC Hgb Hct MCV MCH MCHC RDW Plt Count Lymph % (Auto) Eos % (Auto) [place] # Eos # Baso # Seg Neutrophils % Seg Neuts % (Manual) Lymphocytes % (Manual) Monocytes % (Manual) Eosinophils % (Manual) Nucleated RBC % Seg Neutrophils # Seg Neutrophils # Man Lymphocytes # (Manual) Monocytes # (Manual) Eosinophils # (Manual) APTT POC ABG pH 7.484 H ABG pH POC ABG pCO2 POC ABG pO2 ABG pO2 ABG HCO3 ABG O2 Saturation ABG Base Excess ABG Hemoglobin VBG pH Oxyhemoglobin Sodium Potassium Chloride Carbon Dioxide BUN Creatinine Glucose POC Glucose 293 H Lactic Acid Calcium Phosphorus Total Bilirubin AST ALT C-Reactive Protein Total Protein Albumin Triglycerides 1042 H Amylase Lipase Urine WBC (Auto) Vancomycin Trough Crossmatch 12/20/17 12/20/17 12/21/17 18:00 21:58 02:05 WBC RBC Hgb Hct MCV MCH MCHC RDW Plt Count Lymph % (Auto) Eos % (Auto) [place] # Eos # Baso # Seg Neutrophils % Seg Neuts % (Manual) Lymphocytes % (Manual) Monocytes % (Manual) Eosinophils % (Manual) Nucleated RBC % Seg Neutrophils # Seg Neutrophils # Man Lymphocytes # (Manual) Monocytes # (Manual) Eosinophils # (Manual) APTT POC ABG pH ABG pH POC ABG pCO2 POC ABG pO2 ABG pO2 ABG HCO3 ABG O2 Saturation ABG Base Excess ABG Hemoglobin VBG pH Oxyhemoglobin Sodium Potassium Chloride Carbon Dioxide BUN Creatinine Glucose POC Glucose 268 H 272 H 229 H Lactic Acid Calcium Phosphorus Total Bilirubin AST ALT C-Reactive Protein Total Protein Albumin Triglycerides Amylase Lipase Urine WBC (Auto) Vancomycin Trough Crossmatch 12/21/17 12/21/17 12/21/17 03:59 06:23 08:57 WBC RBC Hgb Hct MCV MCH MCHC RDW Plt Count Lymph % (Auto) Eos % (Auto) [place] # Eos # Baso # Seg Neutrophils % Seg Neuts % (Manual) Lymphocytes % (Manual) Monocytes % (Manual) Eosinophils % (Manual) Nucleated RBC % Seg Neutrophils # Seg Neutrophils # Man Lymphocytes # (Manual) Monocytes # (Manual) Eosinophils # (Manual) APTT POC ABG pH 7.474 H ABG pH POC ABG pCO2 POC ABG pO2 71 L ABG pO2 ABG HCO3 ABG O2 Saturation ABG Base Excess ABG Hemoglobin VBG pH Oxyhemoglobin Sodium Potassium Chloride Carbon Dioxide BUN Creatinine Glucose POC Glucose 182 H 217 H Lactic Acid Calcium Phosphorus Total Bilirubin AST ALT C-Reactive Protein Total Protein Albumin Triglycerides Amylase Lipase Urine WBC (Auto) Vancomycin Trough Crossmatch 12/21/17 12/21/17 12/21/17 13:59 18:00 21:20 WBC RBC Hgb Hct MCV MCH MCHC RDW Plt Count Lymph % (Auto) Eos % (Auto) [place] # Eos # Baso # Seg Neutrophils % Seg Neuts % (Manual) Lymphocytes % (Manual) Monocytes % (Manual) Eosinophils % (Manual) Nucleated RBC % Seg Neutrophils # Seg Neutrophils # Man Lymphocytes # (Manual) Monocytes # (Manual) Eosinophils # (Manual) APTT POC ABG pH ABG pH POC ABG pCO2 POC ABG pO2 ABG pO2 ABG HCO3 ABG O2 Saturation ABG Base Excess ABG Hemoglobin VBG pH Oxyhemoglobin Sodium Potassium Chloride Carbon Dioxide BUN Creatinine Glucose POC Glucose 185 H 176 H 187 H Lactic Acid Calcium Phosphorus Total Bilirubin AST ALT C-Reactive Protein Total Protein Albumin Triglycerides Amylase Lipase Urine WBC (Auto) Vancomycin Trough Crossmatch 12/21/17 12/22/17 12/22/17 23:48 04:39 05:30 WBC RBC Hgb Hct MCV MCH MCHC RDW Plt Count Lymph % (Auto) Eos % (Auto) [place] # Eos # Baso # Seg Neutrophils % Seg Neuts % (Manual) Lymphocytes % (Manual) Monocytes % (Manual) Eosinophils % (Manual) Nucleated RBC % Seg Neutrophils # Seg Neutrophils # Man Lymphocytes # (Manual) Monocytes # (Manual) Eosinophils # (Manual) APTT POC ABG pH 7.528 H ABG pH POC ABG pCO2 POC ABG pO2 63 L ABG pO2 ABG HCO3 ABG O2 Saturation ABG Base Excess ABG Hemoglobin VBG pH Oxyhemoglobin Sodium Potassium Chloride Carbon Dioxide BUN Creatinine Glucose POC Glucose 126 H 117 H Lactic Acid Calcium Phosphorus Total Bilirubin AST ALT C-Reactive Protein Total Protein Albumin Triglycerides Amylase Lipase Urine WBC (Auto) Vancomycin Trough Crossmatch 12/22/17 12/22/17 12/22/17 09:12 10:34 10:34 WBC 29.5 H RBC 3.44 L Hgb 11.2 L Hct 34.2 L MCV 99 H MCH 33 H MCHC RDW 13.1 L Plt Count 97 L Lymph % (Auto) Eos % (Auto) [place] # Eos # Baso # Seg Neutrophils % Seg Neuts % (Manual) 88.0 H Lymphocytes % (Manual) 5.0 L Monocytes % (Manual) Eosinophils % (Manual) Nucleated RBC % Seg Neutrophils # Seg Neutrophils # Man 26.0 H Lymphocytes # (Manual) Monocytes # (Manual) Eosinophils # (Manual) APTT POC ABG pH ABG pH POC ABG pCO2 POC ABG pO2 ABG pO2 ABG HCO3 ABG O2 Saturation ABG Base Excess ABG Hemoglobin VBG pH Oxyhemoglobin Sodium 146 H Potassium 3.1 L Chloride Carbon Dioxide BUN 25 H Creatinine 0.7 L Glucose 146 H POC Glucose 168 H Lactic Acid Calcium 8.1 L Phosphorus Total Bilirubin AST ALT C-Reactive Protein Total Protein Albumin Triglycerides Amylase Lipase Urine WBC (Auto) Vancomycin Trough Crossmatch 12/22/17 12/22/17 12/22/17 14:51 17:21 21:43 WBC RBC Hgb Hct MCV MCH MCHC RDW Plt Count Lymph % (Auto) Eos % (Auto) [place] # Eos # Baso # Seg Neutrophils % Seg Neuts % (Manual) Lymphocytes % (Manual) Monocytes % (Manual) Eosinophils % (Manual) Nucleated RBC % Seg Neutrophils # Seg Neutrophils # Man Lymphocytes # (Manual) Monocytes # (Manual) Eosinophils # (Manual) APTT POC ABG pH ABG pH POC ABG pCO2 POC ABG pO2 ABG pO2 ABG HCO3 ABG O2 Saturation ABG Base Excess ABG Hemoglobin VBG pH Oxyhemoglobin Sodium Potassium Chloride Carbon Dioxide BUN Creatinine Glucose POC Glucose 125 H 110 H 153 H Lactic Acid Calcium Phosphorus Total Bilirubin AST ALT C-Reactive Protein Total Protein Albumin Triglycerides Amylase Lipase Urine WBC (Auto) Vancomycin Trough Crossmatch 12/23/17 12/23/17 12/23/17 04:33 05:28 09:25 WBC 31.4 H RBC 3.05 L Hgb 9.8 L Hct 30.2 L MCV 99 H MCH MCHC RDW 12.9 L Plt Count 101 L Lymph % (Auto) Eos % (Auto) [place] # Eos # Baso # Seg Neutrophils % Seg Neuts % (Manual) 97 H Lymphocytes % (Manual) 2 L Monocytes % (Manual) Eosinophils % (Manual) Nucleated RBC % Seg Neutrophils # Seg Neutrophils # Man 31.1 H Lymphocytes # (Manual) 0.5 L Monocytes # (Manual) Eosinophils # (Manual) APTT POC ABG pH 7.573 H ABG pH POC ABG pCO2 31.0 L POC ABG pO2 63 L ABG pO2 ABG HCO3 ABG O2 Saturation ABG Base Excess ABG Hemoglobin VBG pH Oxyhemoglobin Sodium Potassium Chloride Carbon Dioxide BUN Creatinine Glucose POC Glucose 124 H Lactic Acid Calcium Phosphorus Total Bilirubin AST ALT C-Reactive Protein Total Protein Albumin Triglycerides Amylase Lipase Urine WBC (Auto) Vancomycin Trough Crossmatch 12/23/17 12/23/17 12/23/17 09:25 10:08 14:20 WBC RBC Hgb Hct MCV MCH MCHC RDW Plt Count Lymph % (Auto) Eos % (Auto) [place] # Eos # Baso # Seg Neutrophils % Seg Neuts % (Manual) Lymphocytes % (Manual) Monocytes % (Manual) Eosinophils % (Manual) Nucleated RBC % Seg Neutrophils # Seg Neutrophils # Man Lymphocytes # (Manual) Monocytes # (Manual) Eosinophils # (Manual) APTT POC ABG pH ABG pH POC ABG pCO2 POC ABG pO2 ABG pO2 ABG HCO3 ABG O2 Saturation ABG Base Excess ABG Hemoglobin VBG pH Oxyhemoglobin Sodium Potassium 3.1 L Chloride Carbon Dioxide BUN Creatinine 0.6 L Glucose 169 H POC Glucose 171 H 211 H Lactic Acid Calcium 7.9 L Phosphorus Total Bilirubin AST ALT C-Reactive Protein Total Protein Albumin Triglycerides Amylase Lipase Urine WBC (Auto) Vancomycin Trough Crossmatch 12/23/17 12/23/17 12/24/17 18:59 21:49 01:47 WBC RBC Hgb Hct MCV MCH MCHC RDW Plt Count Lymph % (Auto) Eos % (Auto) [place] # Eos # Baso # Seg Neutrophils % Seg Neuts % (Manual) Lymphocytes % (Manual) Monocytes % (Manual) Eosinophils % (Manual) Nucleated RBC % Seg Neutrophils # Seg Neutrophils # Man Lymphocytes # (Manual) Monocytes # (Manual) Eosinophils # (Manual) APTT POC ABG pH ABG pH POC ABG pCO2 POC ABG pO2 ABG pO2 ABG HCO3 ABG O2 Saturation ABG Base Excess ABG Hemoglobin VBG pH Oxyhemoglobin Sodium Potassium Chloride Carbon Dioxide BUN Creatinine Glucose POC Glucose 175 H 146 H 143 H Lactic Acid Calcium Phosphorus Total Bilirubin AST ALT C-Reactive Protein Total Protein Albumin Triglycerides Amylase Lipase Urine WBC (Auto) Vancomycin Trough Crossmatch 12/24/17 12/24/17 12/24/17 05:40 10:12 13:12 WBC RBC Hgb Hct MCV MCH MCHC RDW Plt Count Lymph % (Auto) Eos % (Auto) [place] # Eos # Baso # Seg Neutrophils % Seg Neuts % (Manual) Lymphocytes % (Manual) Monocytes % (Manual) Eosinophils % (Manual) Nucleated RBC % Seg Neutrophils # Seg Neutrophils # Man Lymphocytes # (Manual) Monocytes # (Manual) Eosinophils # (Manual) APTT POC ABG pH 7.558 H ABG pH POC ABG pCO2 27.6 L POC ABG pO2 71 L ABG pO2 ABG HCO3 ABG O2 Saturation ABG Base Excess ABG Hemoglobin VBG pH Oxyhemoglobin Sodium Potassium Chloride Carbon Dioxide BUN Creatinine Glucose POC Glucose 118 H 111 H Lactic Acid Calcium Phosphorus Total Bilirubin AST ALT C-Reactive Protein Total Protein Albumin Triglycerides Amylase Lipase Urine WBC (Auto) Vancomycin Trough Crossmatch 12/24/17 12/24/17 12/24/17 16:26 20:44 21:49 WBC RBC Hgb Hct MCV MCH MCHC RDW Plt Count Lymph % (Auto) Eos % (Auto) [place] # Eos # Baso # Seg Neutrophils % Seg Neuts % (Manual) Lymphocytes % (Manual) Monocytes % (Manual) Eosinophils % (Manual) Nucleated RBC % Seg Neutrophils # Seg Neutrophils # Man Lymphocytes # (Manual) Monocytes # (Manual) Eosinophils # (Manual) APTT POC ABG pH ABG pH POC ABG pCO2 POC ABG pO2 ABG pO2 ABG HCO3 ABG O2 Saturation ABG Base Excess ABG Hemoglobin VBG pH Oxyhemoglobin Sodium Potassium Chloride Carbon Dioxide BUN Creatinine Glucose POC Glucose 113 H 124 H 115 H Lactic Acid Calcium Phosphorus Total Bilirubin AST ALT C-Reactive Protein Total Protein Albumin Triglycerides Amylase Lipase Urine WBC (Auto) Vancomycin Trough Crossmatch 12/24/17 12/25/17 12/25/17 Unknown 02:26 03:38 WBC RBC Hgb Hct MCV MCH MCHC RDW Plt Count Lymph % (Auto) Eos % (Auto) [place] # Eos # Baso # Seg Neutrophils % Seg Neuts % (Manual) Lymphocytes % (Manual) Monocytes % (Manual) Eosinophils % (Manual) Nucleated RBC % Seg Neutrophils # Seg Neutrophils # Man Lymphocytes # (Manual) Monocytes # (Manual) Eosinophils # (Manual) APTT POC ABG pH 7.503 H ABG pH POC ABG pCO2 POC ABG pO2 66 L ABG pO2 ABG HCO3 ABG O2 Saturation ABG Base Excess ABG Hemoglobin VBG pH Oxyhemoglobin Sodium Potassium 3.0 L Chloride Carbon Dioxide BUN Creatinine 0.5 L Glucose 166 H POC Glucose 106 H Lactic Acid Calcium 7.8 L Phosphorus Total Bilirubin AST ALT C-Reactive Protein Total Protein Albumin Triglycerides Amylase Lipase Urine WBC (Auto) Vancomycin Trough Crossmatch 12/25/17 12/25/17 12/25/17 04:58 12:58 15:06 WBC RBC Hgb Hct MCV MCH MCHC RDW Plt Count Lymph % (Auto) Eos % (Auto) [place] # Eos # Baso # Seg Neutrophils % Seg Neuts % (Manual) Lymphocytes % (Manual) Monocytes % (Manual) Eosinophils % (Manual) Nucleated RBC % Seg Neutrophils # Seg Neutrophils # Man Lymphocytes # (Manual) Monocytes # (Manual) Eosinophils # (Manual) APTT POC ABG pH ABG pH POC ABG pCO2 POC ABG pO2 ABG pO2 ABG HCO3 ABG O2 Saturation ABG Base Excess ABG Hemoglobin VBG pH Oxyhemoglobin Sodium Potassium Chloride Carbon Dioxide BUN Creatinine Glucose POC Glucose 113 H 118 H Lactic Acid Calcium Phosphorus Total Bilirubin AST ALT C-Reactive Protein Total Protein Albumin Triglycerides Amylase Lipase Urine WBC (Auto) Vancomycin Trough 22.5 H Crossmatch 12/25/17 12/25/17 12/25/17 17:59 21:33 Unknown WBC 20.5 H RBC 2.75 L Hgb 9.1 L Hct 27.1 L MCV 99 H MCH 33 H MCHC RDW Plt Count 126 L Lymph % (Auto) Eos % (Auto) [place] # Eos # Baso # Seg Neutrophils % Seg Neuts % (Manual) 89.0 H Lymphocytes % (Manual) 6.0 L Monocytes % (Manual) Eosinophils % (Manual) Nucleated RBC % Seg Neutrophils # Seg Neutrophils # Man 18.2 H Lymphocytes # (Manual) Monocytes # (Manual) Eosinophils # (Manual) APTT POC ABG pH ABG pH POC ABG pCO2 POC ABG pO2 ABG pO2 ABG HCO3 ABG O2 Saturation ABG Base Excess ABG Hemoglobin VBG pH Oxyhemoglobin Sodium Potassium Chloride Carbon Dioxide BUN Creatinine Glucose POC Glucose 145 H 167 H Lactic Acid Calcium Phosphorus Total Bilirubin AST ALT C-Reactive Protein Total Protein Albumin Triglycerides Amylase Lipase Urine WBC (Auto) Vancomycin Trough Crossmatch 12/25/17 12/26/17 12/26/17 Unknown 02:26 05:29 WBC RBC Hgb Hct MCV MCH MCHC RDW Plt Count Lymph % (Auto) Eos % (Auto) [place] # Eos # Baso # Seg Neutrophils % Seg Neuts % (Manual) Lymphocytes % (Manual) Monocytes % (Manual) Eosinophils % (Manual) Nucleated RBC % Seg Neutrophils # Seg Neutrophils # Man Lymphocytes # (Manual) Monocytes # (Manual) Eosinophils # (Manual) APTT POC ABG pH ABG pH POC ABG pCO2 POC ABG pO2 ABG pO2 ABG HCO3 ABG O2 Saturation ABG Base Excess ABG Hemoglobin VBG pH Oxyhemoglobin Sodium Potassium 2.8 L* Chloride Carbon Dioxide BUN Creatinine 0.6 L Glucose POC Glucose 167 H 216 H Lactic Acid Calcium 7.4 L Phosphorus Total Bilirubin AST ALT C-Reactive Protein Total Protein Albumin Triglycerides Amylase Lipase Urine WBC (Auto) Vancomycin Trough Crossmatch 12/26/17 12/26/17 12/26/17 10:21 14:30 18:35 WBC RBC Hgb Hct MCV MCH MCHC RDW Plt Count Lymph % (Auto) Eos % (Auto) [place] # Eos # Baso # Seg Neutrophils % Seg Neuts % (Manual) Lymphocytes % (Manual) Monocytes % (Manual) Eosinophils % (Manual) Nucleated RBC % Seg Neutrophils # Seg Neutrophils # Man Lymphocytes # (Manual) Monocytes # (Manual) Eosinophils # (Manual) APTT POC ABG pH ABG pH POC ABG pCO2 POC ABG pO2 ABG pO2 ABG HCO3 ABG O2 Saturation ABG Base Excess ABG Hemoglobin VBG pH Oxyhemoglobin Sodium Potassium Chloride Carbon Dioxide BUN Creatinine Glucose POC Glucose 164 H 157 H 146 H Lactic Acid Calcium Phosphorus Total Bilirubin AST ALT C-Reactive Protein Total Protein Albumin Triglycerides Amylase Lipase Urine WBC (Auto) Vancomycin Trough Crossmatch 12/26/17 12/26/17 12/27/17 21:21 Unknown 01:54 WBC RBC Hgb Hct MCV MCH MCHC RDW Plt Count Lymph % (Auto) Eos % (Auto) [place] # Eos # Baso # Seg Neutrophils % Seg Neuts % (Manual) Lymphocytes % (Manual) Monocytes % (Manual) Eosinophils % (Manual) Nucleated RBC % Seg Neutrophils # Seg Neutrophils # Man Lymphocytes # (Manual) Monocytes # (Manual) Eosinophils # (Manual) APTT POC ABG pH ABG pH POC ABG pCO2 POC ABG pO2 ABG pO2 ABG HCO3 ABG O2 Saturation ABG Base Excess ABG Hemoglobin VBG pH Oxyhemoglobin Sodium Potassium 3.0 L Chloride Carbon Dioxide BUN Creatinine 0.5 L Glucose 166 H POC Glucose 132 H 157 H Lactic Acid Calcium 7.8 L Phosphorus Total Bilirubin AST ALT C-Reactive Protein Total Protein Albumin Triglycerides Amylase Lipase Urine WBC (Auto) Vancomycin Trough Crossmatch 12/27/17 12/27/17 12/27/17 05:20 05:20 05:44 WBC 26.4 H RBC 2.83 L Hgb 9.3 L Hct 27.6 L MCV 98 H MCH 33 H MCHC RDW Plt Count Lymph % (Auto) Eos % (Auto) [place] # Eos # Baso # Seg Neutrophils % Seg Neuts % (Manual) 85.0 H Lymphocytes % (Manual) 5.0 L Monocytes % (Manual) Eosinophils % (Manual) Nucleated RBC % Seg Neutrophils # Seg Neutrophils # Man 22.4 H Lymphocytes # (Manual) Monocytes # (Manual) Eosinophils # (Manual) 0.5 H APTT POC ABG pH ABG pH POC ABG pCO2 POC ABG pO2 ABG pO2 ABG HCO3 ABG O2 Saturation ABG Base Excess ABG Hemoglobin VBG pH Oxyhemoglobin Sodium Potassium 2.3 L* D Chloride Carbon Dioxide BUN 7 L Creatinine 0.6 L Glucose 123 H POC Glucose 128 H Lactic Acid Calcium 8.1 L Phosphorus Total Bilirubin AST ALT C-Reactive Protein Total Protein Albumin Triglycerides Amylase Lipase Urine WBC (Auto) Vancomycin Trough Crossmatch 12/27/17 12/27/17 12/27/17 10:04 14:44 15:30 WBC RBC Hgb Hct MCV MCH MCHC RDW Plt Count Lymph % (Auto) Eos % (Auto) [place] # Eos # Baso # Seg Neutrophils % Seg Neuts % (Manual) Lymphocytes % (Manual) Monocytes % (Manual) Eosinophils % (Manual) Nucleated RBC % Seg Neutrophils # Seg Neutrophils # Man Lymphocytes # (Manual) Monocytes # (Manual) Eosinophils # (Manual) APTT POC ABG pH ABG pH POC ABG pCO2 POC ABG pO2 ABG pO2 ABG HCO3 ABG O2 Saturation ABG Base Excess ABG Hemoglobin VBG pH Oxyhemoglobin Sodium Potassium 3.1 L D Chloride Carbon Dioxide BUN Creatinine Glucose POC Glucose 115 H 128 H Lactic Acid Calcium Phosphorus Total Bilirubin AST ALT C-Reactive Protein Total Protein Albumin Triglycerides Amylase Lipase Urine WBC (Auto) Vancomycin Trough Crossmatch 12/28/17 12/28/17 12/28/17 00:39 02:13 05:17 WBC RBC Hgb Hct MCV MCH MCHC RDW Plt Count Lymph % (Auto) Eos % (Auto) [place] # Eos # Baso # Seg Neutrophils % Seg Neuts % (Manual) Lymphocytes % (Manual) Monocytes % (Manual) Eosinophils % (Manual) Nucleated RBC % Seg Neutrophils # Seg Neutrophils # Man Lymphocytes # (Manual) Monocytes # (Manual) Eosinophils # (Manual) APTT POC ABG pH ABG pH 7.497 H POC ABG pCO2 POC ABG pO2 ABG pO2 71.4 L ABG HCO3 29.9 H ABG O2 Saturation ABG Base Excess 6.2 H ABG Hemoglobin 7.9 L VBG pH Oxyhemoglobin 94.9 L Sodium Potassium Chloride Carbon Dioxide BUN Creatinine Glucose POC Glucose 112 H 108 H Lactic Acid Calcium Phosphorus Total Bilirubin AST ALT C-Reactive Protein Total Protein Albumin Triglycerides Amylase Lipase Urine WBC (Auto) Vancomycin Trough Crossmatch 12/28/17 12/28/17 12/28/17 08:47 08:47 09:10 WBC 28.1 H RBC 2.76 L Hgb 9.1 L Hct 27.0 L MCV 98 H MCH 33 H MCHC RDW Plt Count Lymph % (Auto) Eos % (Auto) [place] # Eos # Baso # Seg Neutrophils % Seg Neuts % (Manual) Lymphocytes % (Manual) Monocytes % (Manual) Eosinophils % (Manual) Nucleated RBC % Seg Neutrophils # Seg Neutrophils # Man Lymphocytes # (Manual) Monocytes # (Manual) Eosinophils # (Manual) APTT POC ABG pH ABG pH POC ABG pCO2 POC ABG pO2 ABG pO2 ABG HCO3 ABG O2 Saturation ABG Base Excess ABG Hemoglobin VBG pH Oxyhemoglobin Sodium Potassium 2.2 L* D Chloride Carbon Dioxide BUN 5 L Creatinine 0.5 L Glucose 106 H POC Glucose Lactic Acid Calcium 8.3 L Phosphorus 2.20 L Total Bilirubin AST ALT C-Reactive Protein Total Protein Albumin Triglycerides Amylase Lipase Urine WBC (Auto) Vancomycin Trough Crossmatch 12/28/17 12/28/17 12/28/17 13:28 14:22 18:48 WBC RBC Hgb Hct MCV MCH MCHC RDW Plt Count Lymph % (Auto) Eos % (Auto) [place] # Eos # Baso # Seg Neutrophils % Seg Neuts % (Manual) Lymphocytes % (Manual) Monocytes % (Manual) Eosinophils % (Manual) Nucleated RBC % Seg Neutrophils # Seg Neutrophils # Man Lymphocytes # (Manual) Monocytes # (Manual) Eosinophils # (Manual) APTT POC ABG pH ABG pH 7.476 H POC ABG pCO2 POC ABG pO2 ABG pO2 167.7 H ABG HCO3 30.9 H ABG O2 Saturation 99.1 H ABG Base Excess 6.7 H ABG Hemoglobin 8.5 L VBG pH Oxyhemoglobin Sodium Potassium Chloride Carbon Dioxide BUN Creatinine Glucose POC Glucose 141 H 129 H Lactic Acid Calcium Phosphorus Total Bilirubin AST ALT C-Reactive Protein Total Protein Albumin Triglycerides Amylase Lipase Urine WBC (Auto) Vancomycin Trough Crossmatch 12/28/17 12/29/17 12/29/17 21:22 02:45 05:11 WBC RBC Hgb Hct MCV MCH MCHC RDW Plt Count Lymph % (Auto) Eos % (Auto) [place] # Eos # Baso # Seg Neutrophils % Seg Neuts % (Manual) Lymphocytes % (Manual) Monocytes % (Manual) Eosinophils % (Manual) Nucleated RBC % Seg Neutrophils # Seg Neutrophils # Man Lymphocytes # (Manual) Monocytes # (Manual) Eosinophils # (Manual) APTT POC ABG pH ABG pH POC ABG pCO2 POC ABG pO2 ABG pO2 ABG HCO3 ABG O2 Saturation ABG Base Excess ABG Hemoglobin VBG pH Oxyhemoglobin Sodium Potassium Chloride Carbon Dioxide BUN Creatinine Glucose POC Glucose 123 H 138 H 138 H Lactic Acid Calcium Phosphorus Total Bilirubin AST ALT C-Reactive Protein Total Protein Albumin Triglycerides Amylase Lipase Urine WBC (Auto) Vancomycin Trough Crossmatch 12/29/17 12/29/17 12/29/17 05:50 08:04 08:04 WBC 20.8 H RBC 2.26 L Hgb 7.5 L Hct 22.7 L MCV 100 H MCH 33 H MCHC RDW Plt Count Lymph % (Auto) Eos % (Auto) [place] # Eos # Baso # Seg Neutrophils % Seg Neuts % (Manual) 93.0 H Lymphocytes % (Manual) 2.0 L Monocytes % (Manual) Eosinophils % (Manual) Nucleated RBC % Seg Neutrophils # Seg Neutrophils # Man 19.3 H Lymphocytes # (Manual) 0.4 L Monocytes # (Manual) Eosinophils # (Manual) 0.7 H APTT POC ABG pH ABG pH 7.467 H POC ABG pCO2 POC ABG pO2 ABG pO2 ABG HCO3 28.2 H ABG O2 Saturation ABG Base Excess 4.0 H ABG Hemoglobin < 5.1 L VBG pH Oxyhemoglobin Sodium Potassium 3.0 L D Chloride Carbon Dioxide BUN Creatinine 0.5 L Glucose 147 H POC Glucose Lactic Acid Calcium 7.8 L Phosphorus Total Bilirubin AST ALT C-Reactive Protein Total Protein 5.6 L Albumin 2.4 L Triglycerides Amylase Lipase Urine WBC (Auto) Vancomycin Trough Crossmatch 12/29/17 12/29/17 12/29/17 08:20 10:59 14:09 WBC RBC Hgb Hct MCV MCH MCHC RDW Plt Count Lymph % (Auto) Eos % (Auto) [place] # Eos # Baso # Seg Neutrophils % Seg Neuts % (Manual) Lymphocytes % (Manual) Monocytes % (Manual) Eosinophils % (Manual) Nucleated RBC % Seg Neutrophils # Seg Neutrophils # Man Lymphocytes # (Manual) Monocytes # (Manual) Eosinophils # (Manual) APTT POC ABG pH ABG pH POC ABG pCO2 POC ABG pO2 ABG pO2 ABG HCO3 ABG O2 Saturation ABG Base Excess ABG Hemoglobin VBG pH Oxyhemoglobin Sodium Potassium Chloride Carbon Dioxide BUN Creatinine Glucose POC Glucose 153 H 186 H 183 H Lactic Acid Calcium Phosphorus Total Bilirubin AST ALT C-Reactive Protein Total Protein Albumin Triglycerides Amylase Lipase Urine WBC (Auto) Vancomycin Trough Crossmatch 12/29/17 12/29/17 12/29/17 18:03 22:05 22:56 WBC RBC Hgb Hct MCV MCH MCHC RDW Plt Count Lymph % (Auto) Eos % (Auto) [place] # Eos # Baso # Seg Neutrophils % Seg Neuts % (Manual) Lymphocytes % (Manual) Monocytes % (Manual) Eosinophils % (Manual) Nucleated RBC % Seg Neutrophils # Seg Neutrophils # Man Lymphocytes # (Manual) Monocytes # (Manual) Eosinophils # (Manual) APTT POC ABG pH ABG pH POC ABG pCO2 POC ABG pO2 ABG pO2 ABG HCO3 ABG O2 Saturation ABG Base Excess ABG Hemoglobin VBG pH Oxyhemoglobin Sodium Potassium Chloride Carbon Dioxide BUN Creatinine Glucose POC Glucose 159 H 146 H 179 H Lactic Acid Calcium Phosphorus Total Bilirubin AST ALT C-Reactive Protein Total Protein Albumin Triglycerides Amylase Lipase Urine WBC (Auto) Vancomycin Trough Crossmatch 12/30/17 12/30/17 12/30/17 02:03 04:50 04:50 WBC 18.3 H RBC 2.22 L Hgb 7.4 L Hct 23.0 L MCV 104 H MCH 33 H MCHC RDW Plt Count 137 L Lymph % (Auto) 9.0 L Eos % (Auto) [place] # Eos # 0.5 H Baso # Seg Neutrophils % 84.9 H Seg Neuts % (Manual) Lymphocytes % (Manual) Monocytes % (Manual) Eosinophils % (Manual) Nucleated RBC % Seg Neutrophils # 15.6 H Seg Neutrophils # Man Lymphocytes # (Manual) Monocytes # (Manual) Eosinophils # (Manual) APTT POC ABG pH ABG pH POC ABG pCO2 POC ABG pO2 ABG pO2 ABG HCO3 ABG O2 Saturation ABG Base Excess ABG Hemoglobin VBG pH Oxyhemoglobin Sodium 147 H Potassium 3.1 L D Chloride 107.5 H Carbon Dioxide BUN Creatinine 0.5 L Glucose 120 H POC Glucose 118 H Lactic Acid Calcium 7.4 L Phosphorus Total Bilirubin AST ALT C-Reactive Protein Total Protein Albumin Triglycerides Amylase Lipase Urine WBC (Auto) Vancomycin Trough Crossmatch 12/30/17 12/30/17 12/30/17 05:04 13:53 17:33 WBC RBC Hgb Hct MCV MCH MCHC RDW Plt Count Lymph % (Auto) Eos % (Auto) [place] # Eos # Baso # Seg Neutrophils % Seg Neuts % (Manual) Lymphocytes % (Manual) Monocytes % (Manual) Eosinophils % (Manual) Nucleated RBC % Seg Neutrophils # Seg Neutrophils # Man Lymphocytes # (Manual) Monocytes # (Manual) Eosinophils # (Manual) APTT POC ABG pH ABG pH POC ABG pCO2 POC ABG pO2 ABG pO2 ABG HCO3 ABG O2 Saturation ABG Base Excess ABG Hemoglobin VBG pH Oxyhemoglobin Sodium Potassium Chloride Carbon Dioxide BUN Creatinine Glucose POC Glucose 150 H 113 H 145 H Lactic Acid Calcium Phosphorus Total Bilirubin AST ALT C-Reactive Protein Total Protein Albumin Triglycerides Amylase Lipase Urine WBC (Auto) Vancomycin Trough Crossmatch 12/31/17 12/31/17 12/31/17 01:54 03:15 03:15 WBC 17.1 H RBC 2.08 L Hgb 6.9 L Hct 20.6 L MCV 99 H MCH 33 H MCHC RDW 13.1 L Plt Count Lymph % (Auto) 10.5 L Eos % (Auto) [place] # Eos # 0.6 H Baso # Seg Neutrophils % 82.3 H Seg Neuts % (Manual) Lymphocytes % (Manual) Monocytes % (Manual) Eosinophils % (Manual) Nucleated RBC % Seg Neutrophils # 14.0 H Seg Neutrophils # Man Lymphocytes # (Manual) Monocytes # (Manual) Eosinophils # (Manual) APTT POC ABG pH ABG pH POC ABG pCO2 POC ABG pO2 ABG pO2 ABG HCO3 ABG O2 Saturation ABG Base Excess ABG Hemoglobin VBG pH Oxyhemoglobin Sodium Potassium 3.5 L Chloride Carbon Dioxide BUN Creatinine 0.6 L Glucose POC Glucose 69 L Lactic Acid Calcium 7.8 L Phosphorus Total Bilirubin AST ALT C-Reactive Protein Total Protein Albumin Triglycerides Amylase Lipase Urine WBC (Auto) Vancomycin Trough Crossmatch 12/31/17 12/31/17 12/31/17 05:15 09:25 10:17 WBC RBC Hgb Hct MCV MCH MCHC RDW Plt Count Lymph % (Auto) Eos % (Auto) [place] # Eos # Baso # Seg Neutrophils % Seg Neuts % (Manual) Lymphocytes % (Manual) Monocytes % (Manual) Eosinophils % (Manual) Nucleated RBC % Seg Neutrophils # Seg Neutrophils # Man Lymphocytes # (Manual) Monocytes # (Manual) Eosinophils # (Manual) APTT POC ABG pH ABG pH 7.516 H POC ABG pCO2 POC ABG pO2 ABG pO2 69.2 L ABG HCO3 28.7 H ABG O2 Saturation ABG Base Excess 5.3 H ABG Hemoglobin 6.6 L VBG pH Oxyhemoglobin 93.8 L Sodium Potassium Chloride Carbon Dioxide BUN Creatinine Glucose POC Glucose 143 H Lactic Acid Calcium Phosphorus Total Bilirubin AST ALT C-Reactive Protein Total Protein Albumin Triglycerides Amylase Lipase Urine WBC (Auto) Vancomycin Trough Crossmatch See Detail 12/31/17 12/31/17 12/31/17 14:20 18:30 21:40 WBC RBC Hgb Hct MCV MCH MCHC RDW Plt Count Lymph % (Auto) Eos % (Auto) [place] # Eos # Baso # Seg Neutrophils % Seg Neuts % (Manual) Lymphocytes % (Manual) Monocytes % (Manual) Eosinophils % (Manual) Nucleated RBC % Seg Neutrophils # Seg Neutrophils # Man Lymphocytes # (Manual) Monocytes # (Manual) Eosinophils # (Manual) APTT POC ABG pH ABG pH POC ABG pCO2 POC ABG pO2 ABG pO2 ABG HCO3 ABG O2 Saturation ABG Base Excess ABG Hemoglobin VBG pH Oxyhemoglobin Sodium Potassium Chloride Carbon Dioxide BUN Creatinine Glucose POC Glucose 175 H 137 H 182 H Lactic Acid Calcium Phosphorus Total Bilirubin AST ALT C-Reactive Protein Total Protein Albumin Triglycerides Amylase Lipase Urine WBC (Auto) Vancomycin Trough Crossmatch 12/31/17 01/01/18 01/01/18 23:34 02:09 04:00 WBC 16.4 H RBC 2.41 L Hgb 7.8 L Hct 23.6 L MCV 98 H MCH 33 H MCHC RDW Plt Count Lymph % (Auto) 10.7 L Eos % (Auto) [place] # Eos # 0.7 H Baso # 0.2 H Seg Neutrophils % 79.0 H Seg Neuts % (Manual) Lymphocytes % (Manual) Monocytes % (Manual) Eosinophils % (Manual) Nucleated RBC % Seg Neutrophils # 12.9 H Seg Neutrophils # Man Lymphocytes # (Manual) Monocytes # (Manual) Eosinophils # (Manual) APTT POC ABG pH ABG pH POC ABG pCO2 POC ABG pO2 ABG pO2 ABG HCO3 ABG O2 Saturation ABG Base Excess ABG Hemoglobin VBG pH Oxyhemoglobin Sodium Potassium Chloride Carbon Dioxide BUN Creatinine Glucose POC Glucose 132 H 117 H Lactic Acid Calcium Phosphorus Total Bilirubin AST ALT C-Reactive Protein Total Protein Albumin Triglycerides Amylase Lipase Urine WBC (Auto) Vancomycin Trough Crossmatch 01/01/18 01/01/18 01/01/18 04:00 04:04 05:32 WBC RBC Hgb Hct MCV MCH MCHC RDW Plt Count Lymph % (Auto) Eos % (Auto) [place] # Eos # Baso # Seg Neutrophils % Seg Neuts % (Manual) Lymphocytes % (Manual) Monocytes % (Manual) Eosinophils % (Manual) Nucleated RBC % Seg Neutrophils # Seg Neutrophils # Man Lymphocytes # (Manual) Monocytes # (Manual) Eosinophils # (Manual) APTT POC ABG pH ABG pH 7.458 H POC ABG pCO2 POC ABG pO2 ABG pO2 67.5 L ABG HCO3 27.5 H ABG O2 Saturation 94.4 L ABG Base Excess 3.4 H ABG Hemoglobin 7.8 L VBG pH Oxyhemoglobin 92.1 L Sodium Potassium Chloride Carbon Dioxide BUN Creatinine 0.4 L Glucose 129 H POC Glucose 129 H Lactic Acid Calcium 7.9 L Phosphorus Total Bilirubin AST ALT C-Reactive Protein Total Protein Albumin Triglycerides Amylase Lipase Urine WBC (Auto) Vancomycin Trough Crossmatch 01/01/18 01/01/18 01/01/18 10:10 12:38 17:27 WBC RBC Hgb Hct MCV MCH MCHC RDW Plt Count Lymph % (Auto) Eos % (Auto) [place] # Eos # Baso # Seg Neutrophils % Seg Neuts % (Manual) Lymphocytes % (Manual) Monocytes % (Manual) Eosinophils % (Manual) Nucleated RBC % Seg Neutrophils # Seg Neutrophils # Man Lymphocytes # (Manual) Monocytes # (Manual) Eosinophils # (Manual) APTT POC ABG pH ABG pH POC ABG pCO2 POC ABG pO2 ABG pO2 ABG HCO3 ABG O2 Saturation ABG Base Excess ABG Hemoglobin VBG pH Oxyhemoglobin Sodium Potassium Chloride Carbon Dioxide BUN Creatinine Glucose POC Glucose 155 H 179 H 152 H Lactic Acid Calcium Phosphorus Total Bilirubin AST ALT C-Reactive Protein Total Protein Albumin Triglycerides Amylase Lipase Urine WBC (Auto) Vancomycin Trough Crossmatch 01/01/18 01/02/18 01/02/18 21:36 01:42 04:10 WBC 12.1 H RBC 2.29 L Hgb 7.5 L Hct 22.7 L MCV 99 H MCH 33 H MCHC RDW Plt Count Lymph % (Auto) Eos % (Auto) 5.5 H [place] # 0.9 H Eos # 0.7 H Baso # Seg Neutrophils % Seg Neuts % (Manual) Lymphocytes % (Manual) Monocytes % (Manual) Eosinophils % (Manual) Nucleated RBC % Seg Neutrophils # 8.3 H Seg Neutrophils # Man Lymphocytes # (Manual) Monocytes # (Manual) Eosinophils # (Manual) APTT POC ABG pH ABG pH POC ABG pCO2 POC ABG pO2 ABG pO2 ABG HCO3 ABG O2 Saturation ABG Base Excess ABG Hemoglobin VBG pH Oxyhemoglobin Sodium Potassium Chloride Carbon Dioxide BUN Creatinine Glucose POC Glucose 118 H 117 H Lactic Acid Calcium Phosphorus Total Bilirubin AST ALT C-Reactive Protein Total Protein Albumin Triglycerides Amylase Lipase Urine WBC (Auto) Vancomycin Trough Crossmatch 01/02/18 01/02/18 01/02/18 04:10 04:57 13:42 WBC RBC Hgb Hct MCV MCH MCHC RDW Plt Count Lymph % (Auto) Eos % (Auto) [place] # Eos # Baso # Seg Neutrophils % Seg Neuts % (Manual) Lymphocytes % (Manual) Monocytes % (Manual) Eosinophils % (Manual) Nucleated RBC % Seg Neutrophils # Seg Neutrophils # Man Lymphocytes # (Manual) Monocytes # (Manual) Eosinophils # (Manual) APTT POC ABG pH ABG pH POC ABG pCO2 POC ABG pO2 ABG pO2 ABG HCO3 ABG O2 Saturation ABG Base Excess ABG Hemoglobin VBG pH Oxyhemoglobin Sodium Potassium Chloride 97.0 L Carbon Dioxide BUN Creatinine 0.4 L Glucose POC Glucose 107 H 133 H Lactic Acid Calcium 8.1 L Phosphorus Total Bilirubin AST ALT C-Reactive Protein Total Protein 6.0 L Albumin 2.5 L Triglycerides Amylase Lipase Urine WBC (Auto) Vancomycin Trough Crossmatch 01/02/18 01/02/18 01/03/18 17:33 22:11 02:18 WBC RBC Hgb Hct MCV MCH MCHC RDW Plt Count Lymph % (Auto) Eos % (Auto) [place] # Eos # Baso # Seg Neutrophils % Seg Neuts % (Manual) Lymphocytes % (Manual) Monocytes % (Manual) Eosinophils % (Manual) Nucleated RBC % Seg Neutrophils # Seg Neutrophils # Man Lymphocytes # (Manual) Monocytes # (Manual) Eosinophils # (Manual) APTT POC ABG pH ABG pH POC ABG pCO2 POC ABG pO2 ABG pO2 ABG HCO3 ABG O2 Saturation ABG Base Excess ABG Hemoglobin VBG pH Oxyhemoglobin Sodium Potassium Chloride Carbon Dioxide BUN Creatinine Glucose POC Glucose 146 H 171 H 162 H Lactic Acid Calcium Phosphorus Total Bilirubin AST ALT C-Reactive Protein Total Protein Albumin Triglycerides Amylase Lipase Urine WBC (Auto) Vancomycin Trough Crossmatch 01/03/18 01/03/18 01/03/18 04:56 05:21 17:20 WBC RBC Hgb Hct MCV MCH MCHC RDW Plt Count Lymph % (Auto) Eos % (Auto) [place] # Eos # Baso # Seg Neutrophils % Seg Neuts % (Manual) Lymphocytes % (Manual) Monocytes % (Manual) Eosinophils % (Manual) Nucleated RBC % Seg Neutrophils # Seg Neutrophils # Man Lymphocytes # (Manual) Monocytes # (Manual) Eosinophils # (Manual) APTT POC ABG pH ABG pH POC ABG pCO2 POC ABG pO2 ABG pO2 79.5 L ABG HCO3 31.4 H ABG O2 Saturation ABG Base Excess 6.3 H ABG Hemoglobin 10.4 L VBG pH Oxyhemoglobin 94.2 L Sodium Potassium Chloride Carbon Dioxide BUN Creatinine Glucose POC Glucose 163 H 153 H Lactic Acid Calcium Phosphorus Total Bilirubin AST ALT C-Reactive Protein Total Protein Albumin Triglycerides Amylase Lipase Urine WBC (Auto) Vancomycin Trough Crossmatch 01/03/18 01/03/18 01/04/18 17:50 19:52 00:40 WBC RBC Hgb Hct MCV MCH MCHC RDW Plt Count Lymph % (Auto) Eos % (Auto) [place] # Eos # Baso # Seg Neutrophils % Seg Neuts % (Manual) Lymphocytes % (Manual) Monocytes % (Manual) Eosinophils % (Manual) Nucleated RBC % Seg Neutrophils # Seg Neutrophils # Man Lymphocytes # (Manual) Monocytes # (Manual) Eosinophils # (Manual) APTT POC ABG pH ABG pH POC ABG pCO2 POC ABG pO2 ABG pO2 ABG HCO3 ABG O2 Saturation ABG Base Excess ABG Hemoglobin VBG pH Oxyhemoglobin Sodium Potassium Chloride Carbon Dioxide BUN Creatinine Glucose POC Glucose 157 H 147 H 158 H Lactic Acid Calcium Phosphorus Total Bilirubin AST ALT C-Reactive Protein Total Protein Albumin Triglycerides Amylase Lipase Urine WBC (Auto) Vancomycin Trough Crossmatch 01/04/18 01/04/18 01/04/18 04:01 05:13 06:12 WBC 11.5 H RBC 2.95 L Hgb 9.8 L Hct 29.5 L D MCV 100 H MCH 33 H MCHC RDW Plt Count Lymph % (Auto) Eos % (Auto) [place] # Eos # Baso # Seg Neutrophils % Seg Neuts % (Manual) Lymphocytes % (Manual) Monocytes % (Manual) Eosinophils % (Manual) 6.0 H Nucleated RBC % Seg Neutrophils # Seg Neutrophils # Man Lymphocytes # (Manual) Monocytes # (Manual) Eosinophils # (Manual) 0.7 H APTT POC ABG pH ABG pH 7.498 H POC ABG pCO2 POC ABG pO2 ABG pO2 129.5 H ABG HCO3 30.1 H ABG O2 Saturation ABG Base Excess 6.4 H ABG Hemoglobin 9.3 L VBG pH Oxyhemoglobin Sodium Potassium Chloride Carbon Dioxide BUN Creatinine Glucose POC Glucose 163 H Lactic Acid Calcium Phosphorus Total Bilirubin AST ALT C-Reactive Protein Total Protein Albumin Triglycerides Amylase Lipase Urine WBC (Auto) Vancomycin Trough Crossmatch 01/04/18 01/04/18 01/04/18 06:12 10:55 14:29 WBC RBC Hgb Hct MCV MCH MCHC RDW Plt Count Lymph % (Auto) Eos % (Auto) [place] # Eos # Baso # Seg Neutrophils % Seg Neuts % (Manual) Lymphocytes % (Manual) Monocytes % (Manual) Eosinophils % (Manual) Nucleated RBC % Seg Neutrophils # Seg Neutrophils # Man Lymphocytes # (Manual) Monocytes # (Manual) Eosinophils # (Manual) APTT POC ABG pH ABG pH POC ABG pCO2 POC ABG pO2 ABG pO2 ABG HCO3 ABG O2 Saturation ABG Base Excess ABG Hemoglobin VBG pH Oxyhemoglobin Sodium Potassium Chloride Carbon Dioxide BUN Creatinine 0.5 L Glucose 174 H POC Glucose 187 H 144 H Lactic Acid Calcium Phosphorus Total Bilirubin AST 41 H ALT C-Reactive Protein Total Protein Albumin 2.9 L Triglycerides Amylase Lipase Urine WBC (Auto) Vancomycin Trough Crossmatch 01/04/18 01/04/18 01/05/18 17:25 21:56 01:59 WBC RBC Hgb Hct MCV MCH MCHC RDW Plt Count Lymph % (Auto) Eos % (Auto) [place] # Eos # Baso # Seg Neutrophils % Seg Neuts % (Manual) Lymphocytes % (Manual) Monocytes % (Manual) Eosinophils % (Manual) Nucleated RBC % Seg Neutrophils # Seg Neutrophils # Man Lymphocytes # (Manual) Monocytes # (Manual) Eosinophils # (Manual) APTT POC ABG pH ABG pH POC ABG pCO2 POC ABG pO2 ABG pO2 ABG HCO3 ABG O2 Saturation ABG Base Excess ABG Hemoglobin VBG pH Oxyhemoglobin Sodium Potassium Chloride Carbon Dioxide BUN Creatinine Glucose POC Glucose 156 H 171 H 162 H Lactic Acid Calcium Phosphorus Total Bilirubin AST ALT C-Reactive Protein Total Protein Albumin Triglycerides Amylase Lipase Urine WBC (Auto) Vancomycin Trough Crossmatch 01/05/18 01/05/18 01/05/18 03:50 06:00 06:07 WBC RBC Hgb Hct MCV MCH MCHC RDW Plt Count Lymph % (Auto) Eos % (Auto) [place] # Eos # Baso # Seg Neutrophils % Seg Neuts % (Manual) Lymphocytes % (Manual) Monocytes % (Manual) Eosinophils % (Manual) Nucleated RBC % Seg Neutrophils # Seg Neutrophils # Man Lymphocytes # (Manual) Monocytes # (Manual) Eosinophils # (Manual) APTT POC ABG pH ABG pH POC ABG pCO2 POC ABG pO2 ABG pO2 64.6 L ABG HCO3 30.2 H ABG O2 Saturation 91.3 L ABG Base Excess 5.5 H ABG Hemoglobin 10.1 L VBG pH Oxyhemoglobin 89.0 L Sodium Potassium Chloride Carbon Dioxide BUN Creatinine 0.4 L Glucose 144 H POC Glucose 136 H Lactic Acid Calcium Phosphorus Total Bilirubin AST ALT C-Reactive Protein Total Protein Albumin Triglycerides Amylase Lipase Urine WBC (Auto) Vancomycin Trough Crossmatch 01/05/18 01/05/18 01/05/18 10:46 14:03 17:31 WBC RBC Hgb Hct MCV MCH MCHC RDW Plt Count Lymph % (Auto) Eos % (Auto) [place] # Eos # Baso # Seg Neutrophils % Seg Neuts % (Manual) Lymphocytes % (Manual) Monocytes % (Manual) Eosinophils % (Manual) Nucleated RBC % Seg Neutrophils # Seg Neutrophils # Man Lymphocytes # (Manual) Monocytes # (Manual) Eosinophils # (Manual) APTT POC ABG pH ABG pH POC ABG pCO2 POC ABG pO2 ABG pO2 ABG HCO3 ABG O2 Saturation ABG Base Excess ABG Hemoglobin VBG pH Oxyhemoglobin Sodium Potassium Chloride Carbon Dioxide BUN Creatinine Glucose POC Glucose 147 H 141 H 192 H Lactic Acid Calcium Phosphorus Total Bilirubin AST ALT C-Reactive Protein Total Protein Albumin Triglycerides Amylase Lipase Urine WBC (Auto) Vancomycin Trough Crossmatch 01/05/18 01/05/18 01/06/18 22:12 Unknown 01:58 WBC RBC Hgb Hct MCV MCH MCHC RDW Plt Count Lymph % (Auto) Eos % (Auto) [place] # Eos # Baso # Seg Neutrophils % Seg Neuts % (Manual) Lymphocytes % (Manual) Monocytes % (Manual) Eosinophils % (Manual) Nucleated RBC % Seg Neutrophils # Seg Neutrophils # Man Lymphocytes # (Manual) Monocytes # (Manual) Eosinophils # (Manual) APTT POC ABG pH ABG pH 7.463 H POC ABG pCO2 POC ABG pO2 ABG pO2 74.0 L ABG HCO3 29.4 H ABG O2 Saturation ABG Base Excess 5.2 H ABG Hemoglobin 10.0 L VBG pH Oxyhemoglobin 93.4 L Sodium Potassium Chloride Carbon Dioxide BUN Creatinine Glucose POC Glucose 209 H 138 H Lactic Acid Calcium Phosphorus Total Bilirubin AST ALT C-Reactive Protein Total Protein Albumin Triglycerides Amylase Lipase Urine WBC (Auto) Vancomycin Trough Crossmatch 01/06/18 01/06/18 01/06/18 03:14 05:30 05:30 WBC 12.6 H RBC 3.16 L Hgb 10.4 L Hct 31.7 L MCV 100 H MCH 33 H MCHC RDW 15.5 H Plt Count Lymph % (Auto) Eos % (Auto) [place] # Eos # Baso # Seg Neutrophils % Seg Neuts % (Manual) 72.0 H Lymphocytes % (Manual) Monocytes % (Manual) 9.0 H Eosinophils % (Manual) Nucleated RBC % 1.0 H Seg Neutrophils # Seg Neutrophils # Man 9.1 H Lymphocytes # (Manual) Monocytes # (Manual) 1.1 H Eosinophils # (Manual) APTT POC ABG pH ABG pH POC ABG pCO2 POC ABG pO2 ABG pO2 ABG HCO3 28.8 H ABG O2 Saturation ABG Base Excess 4.2 H ABG Hemoglobin 9.3 L VBG pH Oxyhemoglobin 94.7 L Sodium 136 L Potassium Chloride 94.2 L Carbon Dioxide BUN Creatinine 0.4 L Glucose 146 H POC Glucose Lactic Acid Calcium Phosphorus Total Bilirubin AST ALT C-Reactive Protein Total Protein Albumin 3.1 L Triglycerides Amylase Lipase Urine WBC (Auto) Vancomycin Trough Crossmatch 01/06/18 01/06/18 01/06/18 05:42 10:00 14:40 WBC RBC Hgb Hct MCV MCH MCHC RDW Plt Count Lymph % (Auto) Eos % (Auto) [place] # Eos # Baso # Seg Neutrophils % Seg Neuts % (Manual) Lymphocytes % (Manual) Monocytes % (Manual) Eosinophils % (Manual) Nucleated RBC % Seg Neutrophils # Seg Neutrophils # Man Lymphocytes # (Manual) Monocytes # (Manual) Eosinophils # (Manual) APTT POC ABG pH ABG pH POC ABG pCO2 POC ABG pO2 ABG pO2 ABG HCO3 ABG O2 Saturation ABG Base Excess ABG Hemoglobin VBG pH Oxyhemoglobin Sodium Potassium Chloride Carbon Dioxide BUN Creatinine Glucose POC Glucose 158 H 155 H 115 H Lactic Acid Calcium Phosphorus Total Bilirubin AST ALT C-Reactive Protein Total Protein Albumin Triglycerides Amylase Lipase Urine WBC (Auto) Vancomycin Trough Crossmatch 01/06/18 01/06/18 01/07/18 17:45 21:59 05:29 WBC RBC Hgb Hct MCV MCH MCHC RDW Plt Count Lymph % (Auto) Eos % (Auto) [place] # Eos # Baso # Seg Neutrophils % Seg Neuts % (Manual) Lymphocytes % (Manual) Monocytes % (Manual) Eosinophils % (Manual) Nucleated RBC % Seg Neutrophils # Seg Neutrophils # Man Lymphocytes # (Manual) Monocytes # (Manual) Eosinophils # (Manual) APTT POC ABG pH ABG pH POC ABG pCO2 POC ABG pO2 ABG pO2 ABG HCO3 ABG O2 Saturation ABG Base Excess ABG Hemoglobin VBG pH Oxyhemoglobin Sodium Potassium Chloride Carbon Dioxide BUN Creatinine Glucose POC Glucose 156 H 177 H 179 H Lactic Acid Calcium Phosphorus Total Bilirubin AST ALT C-Reactive Protein Total Protein Albumin Triglycerides Amylase Lipase Urine WBC (Auto) Vancomycin Trough Crossmatch 01/07/18 01/07/18 01/07/18 10:00 14:32 18:05 WBC RBC Hgb Hct MCV MCH MCHC RDW Plt Count Lymph % (Auto) Eos % (Auto) [place] # Eos # Baso # Seg Neutrophils % Seg Neuts % (Manual) Lymphocytes % (Manual) Monocytes % (Manual) Eosinophils % (Manual) Nucleated RBC % Seg Neutrophils # Seg Neutrophils # Man Lymphocytes # (Manual) Monocytes # (Manual) Eosinophils # (Manual) APTT POC ABG pH ABG pH POC ABG pCO2 POC ABG pO2 ABG pO2 ABG HCO3 ABG O2 Saturation ABG Base Excess ABG Hemoglobin VBG pH Oxyhemoglobin Sodium Potassium Chloride Carbon Dioxide BUN Creatinine Glucose POC Glucose 131 H 177 H 143 H Lactic Acid Calcium Phosphorus Total Bilirubin AST ALT C-Reactive Protein Total Protein Albumin Triglycerides Amylase Lipase Urine WBC (Auto) Vancomycin Trough Crossmatch 01/07/18 01/08/18 01/08/18 22:11 02:26 05:37 WBC RBC Hgb Hct MCV MCH MCHC RDW Plt Count Lymph % (Auto) Eos % (Auto) [place] # Eos # Baso # Seg Neutrophils % Seg Neuts % (Manual) Lymphocytes % (Manual) Monocytes % (Manual) Eosinophils % (Manual) Nucleated RBC % Seg Neutrophils # Seg Neutrophils # Man Lymphocytes # (Manual) Monocytes # (Manual) Eosinophils # (Manual) APTT POC ABG pH ABG pH POC ABG pCO2 POC ABG pO2 ABG pO2 ABG HCO3 ABG O2 Saturation ABG Base Excess ABG Hemoglobin VBG pH Oxyhemoglobin Sodium Potassium Chloride Carbon Dioxide BUN Creatinine Glucose POC Glucose 133 H 194 H 106 H Lactic Acid Calcium Phosphorus Total Bilirubin AST ALT C-Reactive Protein Total Protein Albumin Triglycerides Amylase Lipase Urine WBC (Auto) Vancomycin Trough Crossmatch 01/08/18 01/08/18 01/08/18 09:41 10:45 10:45 WBC 11.6 H RBC 3.21 L Hgb 10.5 L Hct 32.0 L MCV 100 H MCH 33 H MCHC RDW 15.7 H Plt Count Lymph % (Auto) Eos % (Auto) [place] # Eos # Baso # Seg Neutrophils % Seg Neuts % (Manual) Lymphocytes % (Manual) Monocytes % (Manual) Eosinophils % (Manual) Nucleated RBC % Seg Neutrophils # Seg Neutrophils # Man Lymphocytes # (Manual) Monocytes # (Manual) Eosinophils # (Manual) APTT POC ABG pH ABG pH POC ABG pCO2 POC ABG pO2 ABG pO2 ABG HCO3 ABG O2 Saturation ABG Base Excess ABG Hemoglobin VBG pH Oxyhemoglobin Sodium Potassium Chloride 96.4 L Carbon Dioxide BUN Creatinine 0.4 L Glucose 146 H POC Glucose 142 H Lactic Acid Calcium Phosphorus Total Bilirubin AST ALT C-Reactive Protein Total Protein Albumin Triglycerides Amylase Lipase Urine WBC (Auto) Vancomycin Trough Crossmatch 04/11/18 04/11/18 04/11/18 14:31 17:20 21:46 WBC RBC Hgb Hct MCV MCH MCHC RDW Plt Count Lymph % (Auto) Eos % (Auto) [place] # Eos # Baso # Seg Neutrophils % Seg Neuts % (Manual) Lymphocytes % (Manual) Monocytes % (Manual) Eosinophils % (Manual) Nucleated RBC % Seg Neutrophils # Seg Neutrophils # Man Lymphocytes # (Manual) Monocytes # (Manual) Eosinophils # (Manual) APTT POC ABG pH ABG pH POC ABG pCO2 POC ABG pO2 ABG pO2 ABG HCO3 ABG O2 Saturation ABG Base Excess ABG Hemoglobin VBG pH Oxyhemoglobin Sodium Potassium Chloride Carbon Dioxide BUN Creatinine Glucose POC Glucose 158 H 160 H 166 H Lactic Acid Calcium Phosphorus Total Bilirubin AST ALT C-Reactive Protein Total Protein Albumin Triglycerides Amylase Lipase Urine WBC (Auto) Vancomycin Trough Crossmatch 01/09/18 01/09/18 01/09/18 02:01 04:30 04:30 WBC RBC 3.21 L Hgb 10.9 L Hct 31.7 L MCV 99 H MCH 34 H MCHC RDW 15.8 H Plt Count Lymph % (Auto) Eos % (Auto) [place] # Eos # Baso # Seg Neutrophils % Seg Neuts % (Manual) Lymphocytes % (Manual) Monocytes % (Manual) Eosinophils % (Manual) Nucleated RBC % Seg Neutrophils # Seg Neutrophils # Man Lymphocytes # (Manual) Monocytes # (Manual) Eosinophils # (Manual) APTT POC ABG pH ABG pH POC ABG pCO2 POC ABG pO2 ABG pO2 ABG HCO3 ABG O2 Saturation ABG Base Excess ABG Hemoglobin VBG pH Oxyhemoglobin Sodium 135 L Potassium Chloride 93.8 L Carbon Dioxide BUN Creatinine 0.5 L Glucose 137 H POC Glucose 155 H Lactic Acid Calcium Phosphorus Total Bilirubin AST ALT C-Reactive Protein Total Protein Albumin Triglycerides Amylase Lipase Urine WBC (Auto) Vancomycin Trough Crossmatch 01/09/18 01/09/18 01/09/18 05:42 10:41 14:01 WBC RBC Hgb Hct MCV MCH MCHC RDW Plt Count Lymph % (Auto) Eos % (Auto) [place] # Eos # Baso # Seg Neutrophils % Seg Neuts % (Manual) Lymphocytes % (Manual) Monocytes % (Manual) Eosinophils % (Manual) Nucleated RBC % Seg Neutrophils # Seg Neutrophils # Man Lymphocytes # (Manual) Monocytes # (Manual) Eosinophils # (Manual) APTT POC ABG pH ABG pH POC ABG pCO2 POC ABG pO2 ABG pO2 ABG HCO3 ABG O2 Saturation ABG Base Excess ABG Hemoglobin VBG pH Oxyhemoglobin Sodium Potassium Chloride Carbon Dioxide BUN Creatinine Glucose POC Glucose 142 H 187 H 138 H Lactic Acid Calcium Phosphorus Total Bilirubin AST ALT C-Reactive Protein Total Protein Albumin Triglycerides Amylase Lipase Urine WBC (Auto) Vancomycin Trough Crossmatch 01/09/18 01/09/18 01/10/18 18:09 21:09 02:06 WBC RBC Hgb Hct MCV MCH MCHC RDW Plt Count Lymph % (Auto) Eos % (Auto) [place] # Eos # Baso # Seg Neutrophils % Seg Neuts % (Manual) Lymphocytes % (Manual) Monocytes % (Manual) Eosinophils % (Manual) Nucleated RBC % Seg Neutrophils # Seg Neutrophils # Man Lymphocytes # (Manual) Monocytes # (Manual) Eosinophils # (Manual) APTT POC ABG pH ABG pH POC ABG pCO2 POC ABG pO2 ABG pO2 ABG HCO3 ABG O2 Saturation ABG Base Excess ABG Hemoglobin VBG pH Oxyhemoglobin Sodium Potassium Chloride Carbon Dioxide BUN Creatinine Glucose POC Glucose 143 H 188 H 160 H Lactic Acid Calcium Phosphorus Total Bilirubin AST ALT C-Reactive Protein Total Protein Albumin Triglycerides Amylase Lipase Urine WBC (Auto) Vancomycin Trough Crossmatch 01/10/18 01/10/18 05:58 09:54 WBC RBC Hgb Hct MCV MCH MCHC RDW Plt Count Lymph % (Auto) Eos % (Auto) [place] # Eos # Baso # Seg Neutrophils % Seg Neuts % (Manual) Lymphocytes % (Manual) Monocytes % (Manual) Eosinophils % (Manual) Nucleated RBC % Seg Neutrophils # Seg Neutrophils # Man Lymphocytes # (Manual) Monocytes # (Manual) Eosinophils # (Manual) APTT POC ABG pH ABG pH POC ABG pCO2 POC ABG pO2 ABG pO2 ABG HCO3 ABG O2 Saturation ABG Base Excess ABG Hemoglobin VBG pH Oxyhemoglobin Sodium Potassium Chloride Carbon Dioxide BUN Creatinine Glucose POC Glucose 134 H 162 H Lactic Acid Calcium Phosphorus Total Bilirubin AST ALT C-Reactive Protein Total Protein Albumin Triglycerides Amylase Lipase Urine WBC (Auto) Vancomycin Trough Crossmatch
[2018-01-10] MEDS: LOVENOX SUB-Q SCH (21:44)
[2018-01-11] MEDS: LIBRIUM PO SCH ×4 (00:26→17:41)
[2018-01-11] MEDS: HumaLOG SUB-Q SCH ×6 (02:30→22:30)
[2018-01-11] MEDS: DUONEB *Not for PRN Use IH SCH ×3 (09:00→20:49)
--- NOTE | 2018-01-11 09:24 | Progress Note ---
Assessment and Plan Assessment and plan: Acute hypoxic hypercapnic respiratory failure : Still intubated, on ventilator Vent dependent, unable to wean Continue Vent support, pulmonary following Considering tracheostomy and PEG. has not decided yet. Says she has to talk to family Anemia; s/p 1 Unit PRBC this admission. Sepsis Off antibiotics ,s/p Zyvox, Ccefepime and Flagyl, ID following Aspiration pneumonia. Completed Antibiotics ARDS. Still on vent Alcohol abuse: Continue thiamine, Librium as needed Thrombocytopenia, resolved. Plt count normal Moderate to Severe protein calorie malnutrition; nutrition supplements, tube feeding. Hypotension resolved. Off Levophed Diabetes mellitus type 2. On Lantus and sliding scale. DVT prophylaxis: Lovenox and SCDs Discussed with his at bedside. Still unable to wean off Vent History Interval history: Patient still intubated, Still on ventilator, no fever Hospitalist Physical - Physical exam Narrative exam: Gen appearance: Not in acute distress, lying in bed, Obese,intubated HEENT:Normocephalic, atraumatic Neck:supple, no JVD Lungs: Clear to auscultation bilaterally, no crackles , no wheeze Heart: S1 and S2 regular, no murmurs, rubs or gallop Abdomen: soft, non tender, non distended, normal bowel sounds, Ext: No edema, no clubbing, no cyanosis. Neuro: Intubated, sedated, - Constitutional Vitals: Temp Pulse Resp BP Pulse Ox 98.8 F 110 H 24 145/104 98 01/11/18 08:00 01/11/18 08:30 01/11/18 08:30 01/11/18 08:30 01/11/18 08:30 General appearance: Present: obese, other (intubated on vent) Results - Labs CBC & Chem 7: 01/09/18 04:30 01/09/18 04:30 Labs: Laboratory Last Values WBC 9.0 K/mm3 (4.5-11.0) 01/09/18 04:30 RBC 3.21 M/mm3 (3.65-5.03) L 01/09/18 04:30 Hgb 10.9 gm/dl (11.8-15.2) L 01/09/18 04:30 Hct 31.7 % (35.5-45.6) L 01/09/18 04:30 MCV 99 fl (84-94) H 01/09/18 04:30 MCH 34 pg (28-32) H 01/09/18 04:30 MCHC 34 % (32-34) 01/09/18 04:30 RDW 15.8 % (13.2-15.2) H 01/09/18 04:30 Plt Count 304 K/mm3 (140-440) 01/09/18 04:30 Lymph % (Auto) 18.5 % (13.4-35.0) 01/02/18 04:10 [place] % (Auto) 7.1 % (0.0-7.3) 01/02/18 04:10 Eos % (Auto) 5.5 % (0.0-4.3) H 01/02/18 04:10 Baso % (Auto) 0.3 % (0.0-1.8) 01/02/18 04:10 Lymph # 2.2 K/mm3 (1.2-5.4) 01/02/18 04:10 [place] # 0.9 K/mm3 (0.0-0.8) H 01/02/18 04:10 Eos # 0.7 K/mm3 (0.0-0.4) H 01/02/18 04:10 Baso # 0.0 K/mm3 (0.0-0.1) 01/02/18 04:10 Add Manual Diff Complete 01/06/18 05:30 Total Counted 100 01/06/18 05:30 Seg Neutrophils % 68.6 % (40.0-70.0) 01/02/18 04:10 Seg Neuts % (Manual) 72.0 % (40.0-70.0) H 01/06/18 05:30 Band Neutrophils % 0 % 01/06/18 05:30 Lymphocytes % (Manual) 17.0 % (13.4-35.0) 01/06/18 05:30 Reactive Lymphs % (Man) 0 % 01/06/18 05:30 Monocytes % (Manual) 9.0 % (0.0-7.3) H 01/06/18 05:30 Eosinophils % (Manual) 2.0 % (0.0-4.3) 01/06/18 05:30 Basophils % (Manual) 0 % (0.0-1.8) 01/06/18 05:30 Metamyelocytes % 0 % 01/06/18 05:30 Myelocytes % 0 % 01/06/18 05:30 Promyelocytes % 0 % 01/06/18 05:30 Blast Cells % 0 % 01/06/18 05:30 Nucleated RBC % 1.0 % (0.0-0.9) H 01/06/18 05:30 Seg Neutrophils # 8.3 K/mm3 (1.8-7.7) H 01/02/18 04:10 Seg Neutrophils # Man 9.1 K/mm3 (1.8-7.7) H 01/06/18 05:30 Band Neutrophils # 0.0 K/mm3 01/06/18 05:30 Lymphocytes # (Manual) 2.1 K/mm3 (1.2-5.4) 01/06/18 05:30 Abs React Lymphs (Man) 0.0 K/mm3 01/06/18 05:30 Monocytes # (Manual) 1.1 K/mm3 (0.0-0.8) H 01/06/18 05:30 Eosinophils # (Manual) 0.3 K/mm3 (0.0-0.4) 01/06/18 05:30 Basophils # (Manual) 0.0 K/mm3 (0.0-0.1) 01/06/18 05:30 Metamyelocytes # 0.0 K/mm3 01/06/18 05:30 Myelocytes # 0.0 K/mm3 01/06/18 05:30 Promyelocytes # 0.0 K/mm3 01/06/18 05:30 Blast Cells # 0.0 K/mm3 01/06/18 05:30 Pathologist Review 12/23/17 09:25 WBC Morphology Not Reportable 01/06/18 05:30 Hypersegmented Neuts Not Reportable 01/06/18 05:30 Hyposegmented Neuts Not Reportable 01/06/18 05:30 Hypogranular Neuts Not Reportable 01/06/18 05:30 Smudge Cells Not Reportable 01/06/18 05:30 Toxic Granulation Not Reportable 01/06/18 05:30 Toxic Vacuolation Not Reportable 01/06/18 05:30 Dohle Bodies Not Reportable 01/06/18 05:30 Pelger-Huet Anomaly Not Reportable 01/06/18 05:30 Mary Rods Not Reportable 01/06/18 05:30 Platelet Estimate Appears normal 01/06/18 05:30 Clumped Platelets Not Reportable 01/06/18 05:30 Plt Clumps, EDTA Not Reportable 01/06/18 05:30 Large Platelets Not Reportable 01/06/18 05:30 Giant Platelets Not Reportable 01/06/18 05:30 Platelet Satelliting Not Reportable 01/06/18 05:30 Plt Morphology Comment Not Reportable 01/06/18 05:30 RBC Morphology Not Reportable 01/06/18 05:30 Dimorphic RBCs Not Reportable 01/06/18 05:30 Polychromasia 1+ 01/06/18 05:30 Hypochromasia Not Reportable 01/06/18 05:30 Poikilocytosis Not Reportable 01/06/18 05:30 Anisocytosis 1+ 01/06/18 05:30 Microcytosis Not Reportable 01/06/18 05:30 Macrocytosis Few 01/06/18 05:30 Spherocytes Not Reportable 01/06/18 05:30 Pappenheimer Bodies Not Reportable 01/06/18 05:30 Sickle Cells Not Reportable 01/06/18 05:30 Target Cells Not Reportable 01/06/18 05:30 Tear Drop Cells Not Reportable 01/06/18 05:30 Ovalocytes Not Reportable 01/06/18 05:30 Stomatocytes 1+ 01/06/18 05:30 Helmet Cells Not Reportable 01/06/18 05:30 [place] Bodies Not Reportable 01/06/18 05:[address] Rings Not Reportable 01/06/18 05:30 Chidi Cells Not Reportable 01/06/18 05:30 Bite Cells Not Reportable 01/06/18 05:30 Crenated Cell Not Reportable 01/06/18 05:30 Elliptocytes Not Reportable 01/06/18 05:30 Acanthocytes (Spur) Not Reportable 01/06/18 05:30 Rouleaux Not Reportable 01/06/18 05:30 Hemoglobin C Crystals Not Reportable 01/06/18 05:30 Schistocytes Not Reportable 01/06/18 05:30 Malaria parasites Not Reportable 01/06/18 05:30 Vipul Bodies Not Reportable 01/06/18 05:30 Hem Pathologist Commnt No 01/06/18 05:30 PT 14.9 Sec. (12.2-14.9) 12/15/17 04:05 INR 1.11 (0.87-1.13) 12/15/17 04:05 APTT 20.9 Sec. (24.2-36.6) L 12/15/17 04:05 POC ABG pH 7.503 (7.35-7.45) H 12/25/17 03:38 ABG pH 7.441 pH Units (7.350-7.450) 01/06/18 03:14 POC ABG pCO2 35.8 (35-45) 12/25/17 03:38 ABG pCO2 43.2 mm Hg 01/06/18 03:14 POC ABG pO2 66 (80-105) L 12/25/17 03:38 ABG pO2 84.9 mm Hg (80.0-90.0) 01/06/18 03:14 POC ABG HCO3 28.1 12/25/17 03:38 ABG HCO3 28.8 mmol/L (20.0-26.0) H 01/06/18 03:14 POC ABG Total CO2 29 12/25/17 03:38 POC ABG O2 Sat 95 12/25/17 03:38 ABG O2 Saturation 97.0 % (95.0-99.0) 01/06/18 03:14 ABG O2 Content 12.6 (0.0-44) 01/06/18 03:14 POC ABG Base Excess 5 12/25/17 03:38 ABG Base Excess 4.2 mmol/L (-2.0-3.0) H 01/06/18 03:14 ABG Hemoglobin 9.3 gm/dl (14.0-18.0) L 01/06/18 03:14 ABG Carboxyhemoglobin 2.0 % (0.0-5.0) 01/06/18 03:14 ABG Methemoglobin 0.4 % (0.0-1.5) 01/06/18 03:14 VBG pH 7.472 (7.320-7.420) H 12/12/17 19:18 Oxyhemoglobin 94.7 % (95.0-99.0) L 01/06/18 03:14 FiO2 30 % 01/06/18 03:14 Sodium 135 mmol/L (137-145) L 01/09/18 04:30 Potassium 4.2 mmol/L (3.6-5.0) 01/09/18 04:30 Chloride 93.8 mmol/L (98-107) L 01/09/18 04:30 Carbon Dioxide 30 mmol/L (22-30) 01/09/18 04:30 Anion Gap 15 mmol/L 01/09/18 04:30 BUN 13 mg/dL (9-20) 01/09/18 04:30 Creatinine 0.5 mg/dL (0.8-1.5) L 01/09/18 04:30 Estimated GFR > 60 ml/min 01/09/18 04:30 BUN/Creatinine Ratio 26 % 01/09/18 04:30 Glucose 137 mg/dL (75-100) H 01/09/18 04:30 POC Glucose 159 (70-105) H 01/11/18 02:22 Lactic Acid 2.00 mmol/L (0.7-2.0) 12/13/17 19:38 Calcium 9.6 mg/dL (8.4-10.2) 01/09/18 04:30 Phosphorus 3.10 mg/dL (2.5-4.5) 01/06/18 05:30 Magnesium 1.90 mg/dL (1.7-2.3) 01/06/18 05:30 Total Bilirubin 0.40 mg/dL (0.1-1.2) 01/06/18 05:30 AST 30 units/L (5-40) 01/06/18 05:30 ALT 42 units/L (7-56) 01/06/18 05:30 Alkaline Phosphatase 74 units/L (35-129) 01/06/18 05:30 C-Reactive Protein 7.10 mg/dL (0.00-1.30) H 12/20/17 13:40 NT-Pro-B Natriuret Pep 409.9 pg/mL (0-450) 12/12/17 19:02 Total Protein 7.5 g/dL (6.3-8.2) 01/06/18 05:30 Albumin 3.1 g/dL (3.9-5) L 01/06/18 05:30 Albumin/Globulin Ratio 0.7 % 01/06/18 05:30 Triglycerides 1042 mg/dL (2-149) H 12/20/17 13:40 Amylase 20 units/L (27-131) L 12/13/17 13:47 Lipase 9 units/L (13-60) L 12/13/17 13:47 Urine Color [place] (Yellow) 12/15/17 17:00 Urine Turbidity Hazy (Clear) 12/15/17 17:00 Urine pH 6.0 (5.0-7.0) 12/15/17 17:00 Ur Specific [place] 1.027 (1.003-1.030) 12/15/17 17:00 Urine Protein 30 mg/dl mg/dL (Negative) 12/15/17 17:00 Urine Glucose (UA) Neg mg/dL (Negative) 12/15/17 17:00 Urine Ketones Tr mg/dL (Negative) 12/15/17 17:00 Urine Blood Lg (Negative) 12/15/17 17:00 Urine Nitrite Neg (Negative) 12/15/17 17:00 Urine Bilirubin Neg (Negative) 12/15/17 17:00 Urine Ictotest Positive (Negative) 12/12/17 20:42 Urine Urobilinogen < 2.0 mg/dL (<2.0) 12/15/17 17:00 Ur Leukocyte Esterase Tr (Negative) 12/15/17 17:00 Urine WBC (Auto) 38.0 /HPF (0.0-6.0) H 12/15/17 17:00 Urine RBC (Auto) 65.0 /HPF (0.0-6.0) 12/15/17 17:00 U Epithel Cells (Auto) < 1.0 /HPF (0-13.0) 12/12/17 20:42 Urine Bacteria (Auto) 1+ /HPF (Negative) 12/15/17 17:00 Urine Mucus 1+ /HPF 12/12/17 20:42 Vancomycin Trough 22.5 ug/mL (5.0-20.0) H 12/25/17 12:58 JERMAIN Screen Negative (Negative) 12/18/17 16:44 Proteinase 3 (PR3) Ab <1.0 AI (<1.0) 12/18/17 16:33 Myeloperoxidase Ab <1.0 AI (<1.0) 12/18/17 16:33 Complement C3 113 mg/dL (82-185) 12/18/17 16:33 Complement C4 15 mg/dL (15-53) 12/18/17 16:33 Hepatitis A IgM Ab Non-reactive (NonReactive) 12/20/17 13:40 Hep Bs Antigen Non-reactive (Negative) 12/20/17 13:40 Hep B Core IgM Ab Non-reactive (NonReactive) 12/20/17 13:40 Hepatitis C Antibody Non-reactive (NonReactive) 12/20/17 13:40 HIV 1&2 Antibody Rapid Non react (Non React) 12/20/17 13:40 HIV P24 Antigen Non react (Non React) 12/20/17 13:40 Influenza A (Rapid) Negative (Negative) 12/12/17 22:00 Influenza B (Rapid) Negative (Negative) 12/12/17 22:00 Urine Legionella Ag Not detected (Not Detected) 12/14/17 16:15 Miscellaneous Test Flexitest 1 12/14/17 16:15 Blood Type O POSITIVE 12/31/17 09:25 Antibody Screen Negative 12/31/17 09:25 Crossmatch See Detail 12/31/17 09:25
[2018-01-11] MEDS: POTASSIUM CHLORIDE PO SCH (10:02)
[2018-01-11] MEDS: LOPRESSOR PO SCH ×2 (10:02→22:31)
[2018-01-11] MEDS: PEPCID PO SCH ×2 (10:02→22:31)
[2018-01-11] MEDS: VITAMIN B-1 PO SCH (10:02)
[2018-01-11] MEDS: LANTUS SUB-Q SCH (10:03)
--- NOTE | 2018-01-11 10:11 | Progress Note ---
Assessment and Plan 47 y/o male with acute respiratory failure thought secondary to H. Flu now with H. Flu bacteremia, sepsis and persistent fevers. Unfortunately, no new recs or statements for today. at bedside but has not made decision about peg. Ordered labs for today. 1. Acute respiratory failure. Patient re-intubated 12/28. Started with higher peeps as I feel some of the haze on his CXR is volume. Wean FiO2 first and then start weaning PEEP. Discussed the possibility of trach with . Given the patient's obesity, anxiety and possible underlying psych issues, may need a trach for safety. Continue to wean and attempt PSV trials when ready. Unfortunately, patient continues to fail PSV trials. Will need trach. On board with trach but has to revisit the feeding tube issue. Still no answer yet today. 2. Follow up any new ID recs 3. Monitor I/O. Patient is producing large amounts of urine. Could represent SIADH. BP stable but may need to replace 1:1 if this continues. Subjective Date of service: 01/11/18 Principal diagnosis: ARDS,Respiratory failure,pneumonia Interval history: No acute events. continues to tolerate CPAP of 15/5. still tachypnic in the 30 's. at bedside. Objective Vital Signs - 12hr 01/10/18 01/10/18 01/10/18 22:16 22:30 22:46 Temperature Pulse Rate 84 82 82 Respiratory 18 24 20 Rate Blood Pressure 138/93 138/93 138/93 O2 Sat by Pulse 100 100 100 Oximetry 01/10/18 01/10/18 01/10/18 23:00 23:02 23:16 Temperature Pulse Rate 83 84 85 Respiratory 25 H 17 26 H Rate Blood Pressure 131/94 131/94 131/94 O2 Sat by Pulse 100 100 100 Oximetry 01/10/18 01/10/18 01/10/18 23:30 23:46 23:50 Temperature Pulse Rate 86 87 86 Respiratory 22 24 Rate Blood Pressure 131/94 131/94 131/94 O2 Sat by Pulse 100 99 99 Oximetry 01/11/18 01/11/18 01/11/18 00:00 00:16 00:31 Temperature 98.8 F Pulse Rate 92 H 88 88 Respiratory 22 24 26 H Rate Blood Pressure 131/94 131/94 131/94 O2 Sat by Pulse 96 99 99 Oximetry 01/11/18 01/11/18 01/11/18 00:46 01:00 01:16 Temperature Pulse Rate 87 90 86 Respiratory 17 27 H 21 Rate Blood Pressure 132/91 140/100 140/100 O2 Sat by Pulse 97 97 97 Oximetry 01/11/18 01/11/18 01/11/18 01:30 01:46 02:00 Temperature Pulse Rate 87 89 89 Respiratory 21 18 22 Rate Blood Pressure 140/100 140/100 122/78 O2 Sat by Pulse 100 100 100 Oximetry 01/11/18 01/11/18 01/11/18 02:16 02:30 02:46 Temperature Pulse Rate 88 89 90 Respiratory 13 18 22 Rate Blood Pressure 122/78 122/78 122/78 O2 Sat by Pulse 99 98 94 Oximetry 01/11/18 01/11/18 01/11/18 03:00 03:16 03:30 Temperature Pulse Rate 91 H 91 H 95 H Respiratory 18 22 17 Rate Blood Pressure 147/95 147/95 147/95 O2 Sat by Pulse 98 94 97 Oximetry 01/11/18 01/11/18 01/11/18 03:46 03:51 04:00 Temperature 98.6 F Pulse Rate 94 H 94 H 93 H Respiratory 18 20 Rate Blood Pressure 147/95 147/95 153/100 O2 Sat by Pulse 99 99 98 Oximetry 01/11/18 01/11/18 01/11/18 04:16 04:30 04:46 Temperature Pulse Rate 96 H 97 H 101 H Respiratory 26 H 21 26 H Rate Blood Pressure 153/100 153/100 153/100 O2 Sat by Pulse 97 96 98 Oximetry 01/11/18 01/11/18 01/11/18 05:00 05:16 05:30 Temperature Pulse Rate 100 H 102 H 104 H Respiratory 22 26 H 18 Rate Blood Pressure 139/93 139/93 139/93 O2 Sat by Pulse 97 97 99 Oximetry 01/11/18 01/11/18 01/11/18 05:46 06:00 06:16 Temperature Pulse Rate 104 H 100 H 96 H Respiratory 29 H 22 18 Rate Blood Pressure 139/93 141/98 141/98 O2 Sat by Pulse 97 98 98 Oximetry 01/11/18 01/11/18 01/11/18 06:30 07:00 07:30 Temperature Pulse Rate 99 H 94 H 97 H Respiratory 22 18 18 Rate Blood Pressure 139/93 147/101 141/98 O2 Sat by Pulse 100 99 99 Oximetry 01/11/18 01/11/18 01/11/18 08:00 08:30 09:00 Temperature 98.8 F Pulse Rate 106 H 110 H 108 H Respiratory 19 24 21 Rate Blood Pressure 145/104 145/104 139/96 O2 Sat by Pulse 99 98 97 Oximetry 01/11/18 01/11/18 09:30 09:47 Temperature Pulse Rate 112 H 110 H Respiratory 20 Rate Blood Pressure 139/96 O2 Sat by Pulse 95 Oximetry Constitutional: no acute distress, alert, asleep Eyes: non-icteric ENT: oropharynx moist, other (ETT at 24. ) Neck: no JVD Effort: normal Ascultation: Right: rales, Bilateral: clear, diminished breath sounds, wheezes ( mild), rhonchi (sporadic), other (coarse BS bilaterally) Percussion: Bilateral: not dull Tactile fremitus: Bilateral: normal Cardiovascular: regular rate and rhythm Gastrointestinal: hypoactive bowel sounds, non-tender, other (abdominal obesity) Integumentary: normal Extremities: no cyanosis, no ischemia or petechiae Neurologic: non-focal exam, pupils equal and round, CN II-XII normal Psychiatric: mood appropriate CBC and BMP: 01/09/18 04:30 01/09/18 04:30 ABG, PT/INR, D-dimer: ABG POC ABG pH 7.503 (7.35-7.45) H 12/25/17 03:38 ABG pH 7.441 pH Units (7.350-7.450) 01/06/18 03:14 POC ABG pCO2 35.8 (35-45) 12/25/17 03:38 ABG pCO2 43.2 mm Hg 01/06/18 03:14 POC ABG pO2 66 (80-105) L 12/25/17 03:38 ABG pO2 84.9 mm Hg (80.0-90.0) 01/06/18 03:14 POC ABG HCO3 28.1 12/25/17 03:38 POC ABG Total CO2 29 12/25/17 03:38 POC ABG O2 Sat 95 12/25/17 03:38 ABG O2 Saturation 97.0 % (95.0-99.0) 01/06/18 03:14 PT/INR, D-dimer PT 14.9 Sec. (12.2-14.9) 12/15/17 04:05 INR 1.11 (0.87-1.13) 12/15/17 04:05 Abnormal lab findings: Abnormal Labs 12/12/17 12/12/17 12/12/17 18:57 19:02 19:02 WBC RBC Hgb Hct MCV 96 H MCH 34 H MCHC 35 H RDW Plt Count 46 L Lymph % (Auto) Eos % (Auto) [place] # Eos # Baso # Seg Neutrophils % Seg Neuts % (Manual) 77.0 H Lymphocytes % (Manual) 13.0 L Monocytes % (Manual) Eosinophils % (Manual) Nucleated RBC % Seg Neutrophils # Seg Neutrophils # Man Lymphocytes # (Manual) 0.9 L Monocytes # (Manual) Eosinophils # (Manual) APTT POC ABG pH ABG pH POC ABG pCO2 POC ABG pO2 ABG pO2 ABG HCO3 ABG O2 Saturation ABG Base Excess ABG Hemoglobin VBG pH Oxyhemoglobin Sodium Potassium Chloride Carbon Dioxide BUN Creatinine Glucose POC Glucose 321 H Lactic Acid 4.00 H* Calcium Phosphorus Total Bilirubin AST ALT C-Reactive Protein Total Protein Albumin Triglycerides Amylase Lipase Urine WBC (Auto) Vancomycin Trough Crossmatch 12/12/17 12/12/17 12/12/17 19:02 19:18 20:55 WBC RBC Hgb Hct MCV MCH MCHC RDW Plt Count Lymph % (Auto) Eos % (Auto) [place] # Eos # Baso # Seg Neutrophils % Seg Neuts % (Manual) Lymphocytes % (Manual) Monocytes % (Manual) Eosinophils % (Manual) Nucleated RBC % Seg Neutrophils # Seg Neutrophils # Man Lymphocytes # (Manual) Monocytes # (Manual) Eosinophils # (Manual) APTT POC ABG pH ABG pH POC ABG pCO2 POC ABG pO2 ABG pO2 ABG HCO3 ABG O2 Saturation ABG Base Excess ABG Hemoglobin VBG pH 7.472 H Oxyhemoglobin Sodium 124 L Potassium Chloride 80.0 L Carbon Dioxide 20 L BUN Creatinine Glucose 382 H POC Glucose 283 H Lactic Acid Calcium 8.1 L Phosphorus Total Bilirubin 4.60 H AST 93 H ALT 112 H C-Reactive Protein Total Protein Albumin 2.5 L Triglycerides Amylase Lipase Urine WBC (Auto) Vancomycin Trough Crossmatch 12/12/17 12/13/17 12/13/17 21:41 00:45 01:29 WBC RBC Hgb Hct MCV MCH MCHC RDW Plt Count Lymph % (Auto) Eos % (Auto) [place] # Eos # Baso # Seg Neutrophils % Seg Neuts % (Manual) Lymphocytes % (Manual) Monocytes % (Manual) Eosinophils % (Manual) Nucleated RBC % Seg Neutrophils # Seg Neutrophils # Man Lymphocytes # (Manual) Monocytes # (Manual) Eosinophils # (Manual) APTT POC ABG pH ABG pH POC ABG pCO2 POC ABG pO2 ABG pO2 ABG HCO3 ABG O2 Saturation ABG Base Excess ABG Hemoglobin VBG pH Oxyhemoglobin Sodium Potassium Chloride Carbon Dioxide BUN Creatinine Glucose POC Glucose Lactic Acid 4.20 H* 2.70 H* 3.30 H* Calcium Phosphorus Total Bilirubin AST ALT C-Reactive Protein Total Protein Albumin Triglycerides Amylase Lipase Urine WBC (Auto) Vancomycin Trough Crossmatch 12/13/17 12/13/17 12/13/17 02:19 03:44 05:58 WBC RBC Hgb Hct MCV 97 H MCH 34 H MCHC 35 H RDW Plt Count 41 L Lymph % (Auto) Eos % (Auto) [place] # Eos # Baso # Seg Neutrophils % Seg Neuts % (Manual) Lymphocytes % (Manual) 8.0 L Monocytes % (Manual) 8.0 H Eosinophils % (Manual) Nucleated RBC % Seg Neutrophils # Seg Neutrophils # Man Lymphocytes # (Manual) 0.6 L Monocytes # (Manual) Eosinophils # (Manual) APTT POC ABG pH 7.334 L ABG pH POC ABG pCO2 POC ABG pO2 43 L ABG pO2 ABG HCO3 ABG O2 Saturation ABG Base Excess ABG Hemoglobin VBG pH Oxyhemoglobin Sodium Potassium Chloride Carbon Dioxide BUN Creatinine Glucose POC Glucose Lactic Acid 2.60 H* Calcium Phosphorus Total Bilirubin AST ALT C-Reactive Protein Total Protein Albumin Triglycerides Amylase Lipase Urine WBC (Auto) Vancomycin Trough Crossmatch 12/13/17 12/13/17 12/13/17 05:58 05:58 05:58 WBC RBC Hgb Hct MCV MCH MCHC RDW Plt Count Lymph % (Auto) Eos % (Auto) [place] # Eos # Baso # Seg Neutrophils % Seg Neuts % (Manual) Lymphocytes % (Manual) Monocytes % (Manual) Eosinophils % (Manual) Nucleated RBC % Seg Neutrophils # Seg Neutrophils # Man Lymphocytes # (Manual) Monocytes # (Manual) Eosinophils # (Manual) APTT POC ABG pH ABG pH POC ABG pCO2 POC ABG pO2 ABG pO2 ABG HCO3 ABG O2 Saturation ABG Base Excess ABG Hemoglobin VBG pH Oxyhemoglobin Sodium 132 L D Potassium Chloride 90.0 L Carbon Dioxide 20 L BUN Creatinine Glucose 346 H POC Glucose 298 H Lactic Acid 4.50 H* Calcium 8.2 L Phosphorus Total Bilirubin AST ALT C-Reactive Protein Total Protein Albumin Triglycerides Amylase Lipase Urine WBC (Auto) Vancomycin Trough Crossmatch 12/13/17 12/13/17 12/13/17 06:27 09:42 11:47 WBC RBC Hgb Hct MCV MCH MCHC RDW Plt Count Lymph % (Auto) Eos % (Auto) [place] # Eos # Baso # Seg Neutrophils % Seg Neuts % (Manual) Lymphocytes % (Manual) Monocytes % (Manual) Eosinophils % (Manual) Nucleated RBC % Seg Neutrophils # Seg Neutrophils # Man Lymphocytes # (Manual) Monocytes # (Manual) Eosinophils # (Manual) APTT POC ABG pH 7.267 L 7.298 L ABG pH POC ABG pCO2 50.4 H 51.3 H POC ABG pO2 47 L 43 L ABG pO2 ABG HCO3 ABG O2 Saturation ABG Base Excess ABG Hemoglobin VBG pH Oxyhemoglobin Sodium Potassium Chloride Carbon Dioxide BUN Creatinine Glucose POC Glucose 376 H Lactic Acid Calcium Phosphorus Total Bilirubin AST ALT C-Reactive Protein Total Protein Albumin Triglycerides Amylase Lipase Urine WBC (Auto) Vancomycin Trough Crossmatch 12/13/17 12/13/17 12/13/17 12:03 13:47 13:47 WBC RBC Hgb Hct MCV MCH MCHC RDW Plt Count Lymph % (Auto) Eos % (Auto) [place] # Eos # Baso # Seg Neutrophils % Seg Neuts % (Manual) Lymphocytes % (Manual) Monocytes % (Manual) Eosinophils % (Manual) Nucleated RBC % Seg Neutrophils # Seg Neutrophils # Man Lymphocytes # (Manual) Monocytes # (Manual) Eosinophils # (Manual) APTT POC ABG pH 7.264 L ABG pH POC ABG pCO2 54.9 H POC ABG pO2 55 L ABG pO2 ABG HCO3 ABG O2 Saturation ABG Base Excess ABG Hemoglobin VBG pH Oxyhemoglobin Sodium Potassium Chloride Carbon Dioxide BUN Creatinine Glucose POC Glucose Lactic Acid 2.80 H* Calcium Phosphorus Total Bilirubin AST ALT C-Reactive Protein Total Protein Albumin Triglycerides Amylase 20 L Lipase 9 L Urine WBC (Auto) Vancomycin Trough Crossmatch 12/13/17 12/13/17 12/13/17 15:36 17:39 21:47 WBC RBC Hgb Hct MCV MCH MCHC RDW Plt Count Lymph % (Auto) Eos % (Auto) [place] # Eos # Baso # Seg Neutrophils % Seg Neuts % (Manual) Lymphocytes % (Manual) Monocytes % (Manual) Eosinophils % (Manual) Nucleated RBC % Seg Neutrophils # Seg Neutrophils # Man Lymphocytes # (Manual) Monocytes # (Manual) Eosinophils # (Manual) APTT POC ABG pH 7.229 L 7.225 L ABG pH POC ABG pCO2 60.9 H 66.3 H POC ABG pO2 42 L 41 L ABG pO2 ABG HCO3 ABG O2 Saturation ABG Base Excess ABG Hemoglobin VBG pH Oxyhemoglobin Sodium Potassium Chloride Carbon Dioxide BUN Creatinine Glucose POC Glucose 289 H Lactic Acid Calcium Phosphorus Total Bilirubin AST ALT C-Reactive Protein Total Protein Albumin Triglycerides Amylase Lipase Urine WBC (Auto) Vancomycin Trough Crossmatch 12/13/17 12/14/17 12/14/17 22:19 02:03 05:16 WBC RBC Hgb Hct MCV MCH MCHC RDW Plt Count Lymph % (Auto) Eos % (Auto) [place] # Eos # Baso # Seg Neutrophils % Seg Neuts % (Manual) Lymphocytes % (Manual) Monocytes % (Manual) Eosinophils % (Manual) Nucleated RBC % Seg Neutrophils # Seg Neutrophils # Man Lymphocytes # (Manual) Monocytes # (Manual) Eosinophils # (Manual) APTT POC ABG pH 7.247 L ABG pH POC ABG pCO2 61.2 H POC ABG pO2 53 L ABG pO2 ABG HCO3 ABG O2 Saturation ABG Base Excess ABG Hemoglobin VBG pH Oxyhemoglobin Sodium Potassium Chloride Carbon Dioxide BUN Creatinine Glucose POC Glucose 274 H 295 H Lactic Acid Calcium Phosphorus Total Bilirubin AST ALT C-Reactive Protein Total Protein Albumin Triglycerides Amylase Lipase Urine WBC (Auto) Vancomycin Trough Crossmatch 12/14/17 12/14/17 12/14/17 05:32 12:04 16:22 WBC RBC Hgb Hct MCV MCH MCHC RDW Plt Count Lymph % (Auto) Eos % (Auto) [place] # Eos # Baso # Seg Neutrophils % Seg Neuts % (Manual) Lymphocytes % (Manual) Monocytes % (Manual) Eosinophils % (Manual) Nucleated RBC % Seg Neutrophils # Seg Neutrophils # Man Lymphocytes # (Manual) Monocytes # (Manual) Eosinophils # (Manual) APTT POC ABG pH ABG pH POC ABG pCO2 POC ABG pO2 ABG pO2 ABG HCO3 ABG O2 Saturation ABG Base Excess ABG Hemoglobin VBG pH Oxyhemoglobin Sodium Potassium Chloride Carbon Dioxide BUN Creatinine Glucose POC Glucose 230 H 241 H 231 H Lactic Acid Calcium Phosphorus Total Bilirubin AST ALT C-Reactive Protein Total Protein Albumin Triglycerides Amylase Lipase Urine WBC (Auto) Vancomycin Trough Crossmatch 12/14/17 12/15/17 12/15/17 21:29 02:29 03:25 WBC RBC Hgb Hct MCV MCH MCHC RDW Plt Count Lymph % (Auto) Eos % (Auto) [place] # Eos # Baso # Seg Neutrophils % Seg Neuts % (Manual) Lymphocytes % (Manual) Monocytes % (Manual) Eosinophils % (Manual) Nucleated RBC % Seg Neutrophils # Seg Neutrophils # Man Lymphocytes # (Manual) Monocytes # (Manual) Eosinophils # (Manual) APTT POC ABG pH 7.330 L ABG pH POC ABG pCO2 55.3 H POC ABG pO2 59 L ABG pO2 ABG HCO3 ABG O2 Saturation ABG Base Excess ABG Hemoglobin VBG pH Oxyhemoglobin Sodium Potassium Chloride Carbon Dioxide BUN Creatinine Glucose POC Glucose 258 H 246 H Lactic Acid Calcium Phosphorus Total Bilirubin AST ALT C-Reactive Protein Total Protein Albumin Triglycerides Amylase Lipase Urine WBC (Auto) Vancomycin Trough Crossmatch 12/15/17 12/15/17 12/15/17 04:05 04:05 04:05 WBC 15.0 H RBC 3.40 L Hgb 11.3 L D Hct 33.8 L D MCV 100 H MCH 33 H MCHC RDW Plt Count 48 L Lymph % (Auto) Eos % (Auto) [place] # Eos # Baso # Seg Neutrophils % Seg Neuts % (Manual) Lymphocytes % (Manual) 3.0 L Monocytes % (Manual) Eosinophils % (Manual) Nucleated RBC % 2.0 H Seg Neutrophils # Seg Neutrophils # Man Lymphocytes # (Manual) 0.5 L Monocytes # (Manual) 0.9 H Eosinophils # (Manual) APTT 20.9 L POC ABG pH ABG pH POC ABG pCO2 POC ABG pO2 ABG pO2 ABG HCO3 ABG O2 Saturation ABG Base Excess ABG Hemoglobin VBG pH Oxyhemoglobin Sodium Potassium Chloride Carbon Dioxide BUN 27 H Creatinine Glucose 258 H POC Glucose Lactic Acid Calcium 8.1 L Phosphorus Total Bilirubin AST ALT C-Reactive Protein Total Protein Albumin Triglycerides Amylase Lipase Urine WBC (Auto) Vancomycin Trough Crossmatch 12/15/17 12/15/17 12/15/17 05:32 11:17 14:59 WBC RBC Hgb Hct MCV MCH MCHC RDW Plt Count Lymph % (Auto) Eos % (Auto) [place] # Eos # Baso # Seg Neutrophils % Seg Neuts % (Manual) Lymphocytes % (Manual) Monocytes % (Manual) Eosinophils % (Manual) Nucleated RBC % Seg Neutrophils # Seg Neutrophils # Man Lymphocytes # (Manual) Monocytes # (Manual) Eosinophils # (Manual) APTT POC ABG pH ABG pH POC ABG pCO2 POC ABG pO2 ABG pO2 ABG HCO3 ABG O2 Saturation ABG Base Excess ABG Hemoglobin VBG pH Oxyhemoglobin Sodium Potassium Chloride Carbon Dioxide BUN Creatinine Glucose POC Glucose 247 H 268 H 233 H Lactic Acid Calcium Phosphorus Total Bilirubin AST ALT C-Reactive Protein Total Protein Albumin Triglycerides Amylase Lipase Urine WBC (Auto) Vancomycin Trough Crossmatch 12/15/17 12/15/17 12/15/17 17:00 18:59 21:37 WBC RBC Hgb Hct MCV MCH MCHC RDW Plt Count Lymph % (Auto) Eos % (Auto) [place] # Eos # Baso # Seg Neutrophils % Seg Neuts % (Manual) Lymphocytes % (Manual) Monocytes % (Manual) Eosinophils % (Manual) Nucleated RBC % Seg Neutrophils # Seg Neutrophils # Man Lymphocytes # (Manual) Monocytes # (Manual) Eosinophils # (Manual) APTT POC ABG pH ABG pH POC ABG pCO2 POC ABG pO2 ABG pO2 ABG HCO3 ABG O2 Saturation ABG Base Excess ABG Hemoglobin VBG pH Oxyhemoglobin Sodium Potassium Chloride Carbon Dioxide BUN Creatinine Glucose POC Glucose 195 H 208 H Lactic Acid Calcium Phosphorus Total Bilirubin AST ALT C-Reactive Protein Total Protein Albumin Triglycerides Amylase Lipase Urine WBC (Auto) 38.0 H Vancomycin Trough Crossmatch 12/16/17 12/16/17 12/16/17 03:17 03:33 04:18 WBC 16.4 H RBC 3.50 L Hgb 11.3 L Hct 35.4 L MCV 101 H MCH MCHC RDW Plt Count 54 L Lymph % (Auto) Eos % (Auto) [place] # Eos # Baso # Seg Neutrophils % Seg Neuts % (Manual) Lymphocytes % (Manual) Monocytes % (Manual) Eosinophils % (Manual) Nucleated RBC % Seg Neutrophils # Seg Neutrophils # Man Lymphocytes # (Manual) Monocytes # (Manual) Eosinophils # (Manual) APTT POC ABG pH ABG pH POC ABG pCO2 47.7 H POC ABG pO2 ABG pO2 ABG HCO3 ABG O2 Saturation ABG Base Excess ABG Hemoglobin VBG pH Oxyhemoglobin Sodium Potassium Chloride Carbon Dioxide BUN Creatinine Glucose POC Glucose 227 H Lactic Acid Calcium Phosphorus Total Bilirubin AST ALT C-Reactive Protein Total Protein Albumin Triglycerides Amylase Lipase Urine WBC (Auto) Vancomycin Trough Crossmatch 12/16/17 12/16/17 12/16/17 04:18 05:08 10:01 WBC RBC Hgb Hct MCV MCH MCHC RDW Plt Count Lymph % (Auto) Eos % (Auto) [place] # Eos # Baso # Seg Neutrophils % Seg Neuts % (Manual) Lymphocytes % (Manual) Monocytes % (Manual) Eosinophils % (Manual) Nucleated RBC % Seg Neutrophils # Seg Neutrophils # Man Lymphocytes # (Manual) Monocytes # (Manual) Eosinophils # (Manual) APTT POC ABG pH ABG pH POC ABG pCO2 POC ABG pO2 ABG pO2 ABG HCO3 ABG O2 Saturation ABG Base Excess ABG Hemoglobin VBG pH Oxyhemoglobin Sodium 147 H Potassium Chloride 107.4 H Carbon Dioxide BUN 28 H Creatinine Glucose 240 H POC Glucose 227 H 190 H Lactic Acid Calcium 8.3 L Phosphorus Total Bilirubin AST ALT C-Reactive Protein Total Protein Albumin Triglycerides Amylase Lipase Urine WBC (Auto) Vancomycin Trough Crossmatch 12/16/17 12/16/17 12/16/17 14:15 17:51 21:14 WBC RBC Hgb Hct MCV MCH MCHC RDW Plt Count Lymph % (Auto) Eos % (Auto) [place] # Eos # Baso # Seg Neutrophils % Seg Neuts % (Manual) Lymphocytes % (Manual) Monocytes % (Manual) Eosinophils % (Manual) Nucleated RBC % Seg Neutrophils # Seg Neutrophils # Man Lymphocytes # (Manual) Monocytes # (Manual) Eosinophils # (Manual) APTT POC ABG pH ABG pH POC ABG pCO2 POC ABG pO2 ABG pO2 ABG HCO3 ABG O2 Saturation ABG Base Excess ABG Hemoglobin VBG pH Oxyhemoglobin Sodium Potassium Chloride Carbon Dioxide BUN Creatinine Glucose POC Glucose 279 H 272 H 260 H Lactic Acid Calcium Phosphorus Total Bilirubin AST ALT C-Reactive Protein Total Protein Albumin Triglycerides Amylase Lipase Urine WBC (Auto) Vancomycin Trough Crossmatch 12/17/17 12/17/17 12/17/17 02:41 04:28 04:28 WBC 19.1 H RBC 3.50 L Hgb 11.4 L Hct 35.3 L MCV 101 H MCH 33 H MCHC RDW Plt Count 65 L Lymph % (Auto) Eos % (Auto) [place] # Eos # Baso # Seg Neutrophils % Seg Neuts % (Manual) Lymphocytes % (Manual) Monocytes % (Manual) Eosinophils % (Manual) Nucleated RBC % Seg Neutrophils # Seg Neutrophils # Man Lymphocytes # (Manual) Monocytes # (Manual) Eosinophils # (Manual) APTT POC ABG pH ABG pH POC ABG pCO2 POC ABG pO2 ABG pO2 ABG HCO3 ABG O2 Saturation ABG Base Excess ABG Hemoglobin VBG pH Oxyhemoglobin Sodium 153 H Potassium Chloride 111.2 H Carbon Dioxide 31 H BUN 28 H Creatinine Glucose 248 H POC Glucose 300 H Lactic Acid Calcium Phosphorus Total Bilirubin AST ALT C-Reactive Protein Total Protein Albumin Triglycerides Amylase Lipase Urine WBC (Auto) Vancomycin Trough Crossmatch 12/17/17 12/17/17 12/17/17 05:15 05:38 10:16 WBC RBC Hgb Hct MCV MCH MCHC RDW Plt Count Lymph % (Auto) Eos % (Auto) [place] # Eos # Baso # Seg Neutrophils % Seg Neuts % (Manual) Lymphocytes % (Manual) Monocytes % (Manual) Eosinophils % (Manual) Nucleated RBC % Seg Neutrophils # Seg Neutrophils # Man Lymphocytes # (Manual) Monocytes # (Manual) Eosinophils # (Manual) APTT POC ABG pH ABG pH POC ABG pCO2 50.3 H POC ABG pO2 120 H ABG pO2 ABG HCO3 ABG O2 Saturation ABG Base Excess ABG Hemoglobin VBG pH Oxyhemoglobin Sodium Potassium Chloride Carbon Dioxide BUN Creatinine Glucose POC Glucose 231 H 196 H Lactic Acid Calcium Phosphorus Total Bilirubin AST ALT C-Reactive Protein Total Protein Albumin Triglycerides Amylase Lipase Urine WBC (Auto) Vancomycin Trough Crossmatch 12/17/17 12/17/17 12/17/17 14:22 18:14 21:35 WBC RBC Hgb Hct MCV MCH MCHC RDW Plt Count Lymph % (Auto) Eos % (Auto) [place] # Eos # Baso # Seg Neutrophils % Seg Neuts % (Manual) Lymphocytes % (Manual) Monocytes % (Manual) Eosinophils % (Manual) Nucleated RBC % Seg Neutrophils # Seg Neutrophils # Man Lymphocytes # (Manual) Monocytes # (Manual) Eosinophils # (Manual) APTT POC ABG pH ABG pH POC ABG pCO2 POC ABG pO2 ABG pO2 ABG HCO3 ABG O2 Saturation ABG Base Excess ABG Hemoglobin VBG pH Oxyhemoglobin Sodium Potassium Chloride Carbon Dioxide BUN Creatinine Glucose POC Glucose 234 H 215 H 159 H Lactic Acid Calcium Phosphorus Total Bilirubin AST ALT C-Reactive Protein Total Protein Albumin Triglycerides Amylase Lipase Urine WBC (Auto) Vancomycin Trough Crossmatch 12/18/17 12/18/17 12/18/17 00:53 02:58 06:03 WBC RBC Hgb Hct MCV MCH MCHC RDW Plt Count Lymph % (Auto) Eos % (Auto) [place] # Eos # Baso # Seg Neutrophils % Seg Neuts % (Manual) Lymphocytes % (Manual) Monocytes % (Manual) Eosinophils % (Manual) Nucleated RBC % Seg Neutrophils # Seg Neutrophils # Man Lymphocytes # (Manual) Monocytes # (Manual) Eosinophils # (Manual) APTT POC ABG pH ABG pH POC ABG pCO2 56.4 H POC ABG pO2 46 L ABG pO2 ABG HCO3 ABG O2 Saturation ABG Base Excess ABG Hemoglobin VBG pH Oxyhemoglobin Sodium Potassium Chloride Carbon Dioxide BUN Creatinine Glucose POC Glucose 176 H 143 H Lactic Acid Calcium Phosphorus Total Bilirubin AST ALT C-Reactive Protein Total Protein Albumin Triglycerides Amylase Lipase Urine WBC (Auto) Vancomycin Trough Crossmatch 12/18/17 12/18/17 12/18/17 07:59 09:20 09:20 WBC 27.4 H RBC 3.57 L Hgb 11.4 L Hct MCV 101 H MCH MCHC RDW Plt Count 64 L Lymph % (Auto) Eos % (Auto) [place] # Eos # Baso # Seg Neutrophils % Seg Neuts % (Manual) Lymphocytes % (Manual) Monocytes % (Manual) Eosinophils % (Manual) Nucleated RBC % Seg Neutrophils # Seg Neutrophils # Man Lymphocytes # (Manual) Monocytes # (Manual) Eosinophils # (Manual) APTT POC ABG pH ABG pH POC ABG pCO2 POC ABG pO2 ABG pO2 ABG HCO3 ABG O2 Saturation ABG Base Excess ABG Hemoglobin VBG pH Oxyhemoglobin Sodium 152 H Potassium Chloride 107.9 H Carbon Dioxide 34 H BUN 23 H Creatinine 0.7 L Glucose 181 H POC Glucose 197 H Lactic Acid Calcium Phosphorus Total Bilirubin AST ALT C-Reactive Protein Total Protein Albumin Triglycerides Amylase Lipase Urine WBC (Auto) Vancomycin Trough Crossmatch 12/18/17 12/18/17 12/18/17 10:22 15:03 18:15 WBC RBC Hgb Hct MCV MCH MCHC RDW Plt Count Lymph % (Auto) Eos % (Auto) [place] # Eos # Baso # Seg Neutrophils % Seg Neuts % (Manual) Lymphocytes % (Manual) Monocytes % (Manual) Eosinophils % (Manual) Nucleated RBC % Seg Neutrophils # Seg Neutrophils # Man Lymphocytes # (Manual) Monocytes # (Manual) Eosinophils # (Manual) APTT POC ABG pH ABG pH POC ABG pCO2 POC ABG pO2 ABG pO2 ABG HCO3 ABG O2 Saturation ABG Base Excess ABG Hemoglobin VBG pH Oxyhemoglobin Sodium Potassium Chloride Carbon Dioxide BUN Creatinine Glucose POC Glucose 195 H 225 H 238 H Lactic Acid Calcium Phosphorus Total Bilirubin AST ALT C-Reactive Protein Total Protein Albumin Triglycerides Amylase Lipase Urine WBC (Auto) Vancomycin Trough Crossmatch 12/18/17 12/18/17 12/19/17 18:29 21:53 00:18 WBC RBC Hgb Hct MCV MCH MCHC RDW Plt Count Lymph % (Auto) Eos % (Auto) [place] # Eos # Baso # Seg Neutrophils % Seg Neuts % (Manual) Lymphocytes % (Manual) Monocytes % (Manual) Eosinophils % (Manual) Nucleated RBC % Seg Neutrophils # Seg Neutrophils # Man Lymphocytes # (Manual) Monocytes # (Manual) Eosinophils # (Manual) APTT POC ABG pH 7.476 H ABG pH POC ABG pCO2 50.4 H POC ABG pO2 158 H ABG pO2 ABG HCO3 ABG O2 Saturation ABG Base Excess ABG Hemoglobin VBG pH Oxyhemoglobin Sodium Potassium Chloride Carbon Dioxide BUN Creatinine Glucose POC Glucose 231 H 263 H Lactic Acid Calcium Phosphorus Total Bilirubin AST ALT C-Reactive Protein Total Protein Albumin Triglycerides Amylase Lipase Urine WBC (Auto) Vancomycin Trough Crossmatch 12/19/17 12/19/17 12/19/17 02:09 04:07 04:07 WBC 25.9 H RBC 3.25 L Hgb 10.6 L Hct 32.8 L MCV 101 H MCH 33 H MCHC RDW Plt Count 67 L Lymph % (Auto) Eos % (Auto) [place] # Eos # Baso # Seg Neutrophils % Seg Neuts % (Manual) Lymphocytes % (Manual) 4.0 L Monocytes % (Manual) Eosinophils % (Manual) Nucleated RBC % Seg Neutrophils # Seg Neutrophils # Man 14.8 H Lymphocytes # (Manual) 1.0 L Monocytes # (Manual) Eosinophils # (Manual) APTT POC ABG pH ABG pH POC ABG pCO2 POC ABG pO2 ABG pO2 ABG HCO3 ABG O2 Saturation ABG Base Excess ABG Hemoglobin VBG pH Oxyhemoglobin Sodium 148 H Potassium Chloride Carbon Dioxide BUN 31 H Creatinine Glucose 314 H POC Glucose 300 H Lactic Acid Calcium 8.1 L Phosphorus Total Bilirubin AST ALT C-Reactive Protein Total Protein Albumin Triglycerides Amylase Lipase Urine WBC (Auto) Vancomycin Trough Crossmatch 12/19/17 12/19/17 12/19/17 05:15 05:41 07:57 WBC RBC Hgb Hct MCV MCH MCHC RDW Plt Count Lymph % (Auto) Eos % (Auto) [place] # Eos # Baso # Seg Neutrophils % Seg Neuts % (Manual) Lymphocytes % (Manual) Monocytes % (Manual) Eosinophils % (Manual) Nucleated RBC % Seg Neutrophils # Seg Neutrophils # Man Lymphocytes # (Manual) Monocytes # (Manual) Eosinophils # (Manual) APTT POC ABG pH 7.507 H ABG pH POC ABG pCO2 POC ABG pO2 ABG pO2 ABG HCO3 ABG O2 Saturation ABG Base Excess ABG Hemoglobin VBG pH Oxyhemoglobin Sodium Potassium Chloride Carbon Dioxide BUN Creatinine Glucose POC Glucose 331 H 307 H Lactic Acid Calcium Phosphorus Total Bilirubin AST ALT C-Reactive Protein Total Protein Albumin Triglycerides Amylase Lipase Urine WBC (Auto) Vancomycin Trough Crossmatch 12/19/17 12/19/17 12/19/17 10:21 14:48 17:59 WBC RBC Hgb Hct MCV MCH MCHC RDW Plt Count Lymph % (Auto) Eos % (Auto) [place] # Eos # Baso # Seg Neutrophils % Seg Neuts % (Manual) Lymphocytes % (Manual) Monocytes % (Manual) Eosinophils % (Manual) Nucleated RBC % Seg Neutrophils # Seg Neutrophils # Man Lymphocytes # (Manual) Monocytes # (Manual) Eosinophils # (Manual) APTT POC ABG pH ABG pH POC ABG pCO2 POC ABG pO2 ABG pO2 ABG HCO3 ABG O2 Saturation ABG Base Excess ABG Hemoglobin VBG pH Oxyhemoglobin Sodium Potassium Chloride Carbon Dioxide BUN Creatinine Glucose POC Glucose 358 H 327 H 355 H Lactic Acid Calcium Phosphorus Total Bilirubin AST ALT C-Reactive Protein Total Protein Albumin Triglycerides Amylase Lipase Urine WBC (Auto) Vancomycin Trough Crossmatch 0312/20/17 12/20/17 21:38 02:21 03:42 WBC RBC Hgb Hct MCV MCH MCHC RDW Plt Count Lymph % (Auto) Eos % (Auto) [place] # Eos # Baso # Seg Neutrophils % Seg Neuts % (Manual) Lymphocytes % (Manual) Monocytes % (Manual) Eosinophils % (Manual) Nucleated RBC % Seg Neutrophils # Seg Neutrophils # Man Lymphocytes # (Manual) Monocytes # (Manual) Eosinophils # (Manual) APTT POC ABG pH 7.494 H ABG pH POC ABG pCO2 POC ABG pO2 ABG pO2 ABG HCO3 ABG O2 Saturation ABG Base Excess ABG Hemoglobin VBG pH Oxyhemoglobin Sodium Potassium Chloride Carbon Dioxide BUN Creatinine Glucose POC Glucose 329 H 354 H Lactic Acid Calcium Phosphorus Total Bilirubin AST ALT C-Reactive Protein Total Protein Albumin Triglycerides Amylase Lipase Urine WBC (Auto) Vancomycin Trough Crossmatch 12/20/17 12/20/17 12/20/17 04:08 04:08 04:08 WBC 22.7 H RBC 3.26 L Hgb 10.6 L Hct 32.9 L MCV 101 H MCH 33 H MCHC RDW Plt Count 78 L Lymph % (Auto) Eos % (Auto) [place] # Eos # Baso # Seg Neutrophils % Seg Neuts % (Manual) 80.0 H Lymphocytes % (Manual) 6.0 L Monocytes % (Manual) Eosinophils % (Manual) Nucleated RBC % Seg Neutrophils # Seg Neutrophils # Man 18.2 H Lymphocytes # (Manual) Monocytes # (Manual) Eosinophils # (Manual) APTT POC ABG pH ABG pH POC ABG pCO2 POC ABG pO2 ABG pO2 ABG HCO3 ABG O2 Saturation ABG Base Excess ABG Hemoglobin VBG pH Oxyhemoglobin Sodium Potassium Chloride Carbon Dioxide 31 H BUN 30 H Creatinine 0.6 L Glucose 365 H POC Glucose Lactic Acid Calcium Phosphorus Total Bilirubin AST ALT C-Reactive Protein Total Protein Albumin Triglycerides 981 H Amylase Lipase Urine WBC (Auto) Vancomycin Trough Crossmatch 12/20/17 12/20/17 12/20/17 05:15 10:47 13:40 WBC RBC Hgb Hct MCV MCH MCHC RDW Plt Count Lymph % (Auto) Eos % (Auto) [place] # Eos # Baso # Seg Neutrophils % Seg Neuts % (Manual) Lymphocytes % (Manual) Monocytes % (Manual) Eosinophils % (Manual) Nucleated RBC % Seg Neutrophils # Seg Neutrophils # Man Lymphocytes # (Manual) Monocytes # (Manual) Eosinophils # (Manual) APTT POC ABG pH ABG pH POC ABG pCO2 POC ABG pO2 ABG pO2 ABG HCO3 ABG O2 Saturation ABG Base Excess ABG Hemoglobin VBG pH Oxyhemoglobin Sodium Potassium Chloride Carbon Dioxide BUN Creatinine Glucose POC Glucose 342 H 330 H Lactic Acid Calcium Phosphorus Total Bilirubin AST ALT C-Reactive Protein 7.10 H Total Protein Albumin Triglycerides Amylase Lipase Urine WBC (Auto) Vancomycin Trough Crossmatch 12/20/17 12/20/17 12/20/17 13:40 14:52 16:55 WBC RBC Hgb Hct MCV MCH MCHC RDW Plt Count Lymph % (Auto) Eos % (Auto) [place] # Eos # Baso # Seg Neutrophils % Seg Neuts % (Manual) Lymphocytes % (Manual) Monocytes % (Manual) Eosinophils % (Manual) Nucleated RBC % Seg Neutrophils # Seg Neutrophils # Man Lymphocytes # (Manual) Monocytes # (Manual) Eosinophils # (Manual) APTT POC ABG pH 7.484 H ABG pH POC ABG pCO2 POC ABG pO2 ABG pO2 ABG HCO3 ABG O2 Saturation ABG Base Excess ABG Hemoglobin VBG pH Oxyhemoglobin Sodium Potassium Chloride Carbon Dioxide BUN Creatinine Glucose POC Glucose 293 H Lactic Acid Calcium Phosphorus Total Bilirubin AST ALT C-Reactive Protein Total Protein Albumin Triglycerides 1042 H Amylase Lipase Urine WBC (Auto) Vancomycin Trough Crossmatch 12/20/17 12/20/17 12/21/17 18:00 21:58 02:05 WBC RBC Hgb Hct MCV MCH MCHC RDW Plt Count Lymph % (Auto) Eos % (Auto) [place] # Eos # Baso # Seg Neutrophils % Seg Neuts % (Manual) Lymphocytes % (Manual) Monocytes % (Manual) Eosinophils % (Manual) Nucleated RBC % Seg Neutrophils # Seg Neutrophils # Man Lymphocytes # (Manual) Monocytes # (Manual) Eosinophils # (Manual) APTT POC ABG pH ABG pH POC ABG pCO2 POC ABG pO2 ABG pO2 ABG HCO3 ABG O2 Saturation ABG Base Excess ABG Hemoglobin VBG pH Oxyhemoglobin Sodium Potassium Chloride Carbon Dioxide BUN Creatinine Glucose POC Glucose 268 H 272 H 229 H Lactic Acid Calcium Phosphorus Total Bilirubin AST ALT C-Reactive Protein Total Protein Albumin Triglycerides Amylase Lipase Urine WBC (Auto) Vancomycin Trough Crossmatch 12/21/17 12/21/17 12/21/17 03:59 06:23 08:57 WBC RBC Hgb Hct MCV MCH MCHC RDW Plt Count Lymph % (Auto) Eos % (Auto) [place] # Eos # Baso # Seg Neutrophils % Seg Neuts % (Manual) Lymphocytes % (Manual) Monocytes % (Manual) Eosinophils % (Manual) Nucleated RBC % Seg Neutrophils # Seg Neutrophils # Man Lymphocytes # (Manual) Monocytes # (Manual) Eosinophils # (Manual) APTT POC ABG pH 7.474 H ABG pH POC ABG pCO2 POC ABG pO2 71 L ABG pO2 ABG HCO3 ABG O2 Saturation ABG Base Excess ABG Hemoglobin VBG pH Oxyhemoglobin Sodium Potassium Chloride Carbon Dioxide BUN Creatinine Glucose POC Glucose 182 H 217 H Lactic Acid Calcium Phosphorus Total Bilirubin AST ALT C-Reactive Protein Total Protein Albumin Triglycerides Amylase Lipase Urine WBC (Auto) Vancomycin Trough Crossmatch 12/21/17 12/21/17 12/21/17 13:59 18:00 21:20 WBC RBC Hgb Hct MCV MCH MCHC RDW Plt Count Lymph % (Auto) Eos % (Auto) [place] # Eos # Baso # Seg Neutrophils % Seg Neuts % (Manual) Lymphocytes % (Manual) Monocytes % (Manual) Eosinophils % (Manual) Nucleated RBC % Seg Neutrophils # Seg Neutrophils # Man Lymphocytes # (Manual) Monocytes # (Manual) Eosinophils # (Manual) APTT POC ABG pH ABG pH POC ABG pCO2 POC ABG pO2 ABG pO2 ABG HCO3 ABG O2 Saturation ABG Base Excess ABG Hemoglobin VBG pH Oxyhemoglobin Sodium Potassium Chloride Carbon Dioxide BUN Creatinine Glucose POC Glucose 185 H 176 H 187 H Lactic Acid Calcium Phosphorus Total Bilirubin AST ALT C-Reactive Protein Total Protein Albumin Triglycerides Amylase Lipase Urine WBC (Auto) Vancomycin Trough Crossmatch 12/21/17 12/22/17 12/22/17 23:48 04:39 05:30 WBC RBC Hgb Hct MCV MCH MCHC RDW Plt Count Lymph % (Auto) Eos % (Auto) [place] # Eos # Baso # Seg Neutrophils % Seg Neuts % (Manual) Lymphocytes % (Manual) Monocytes % (Manual) Eosinophils % (Manual) Nucleated RBC % Seg Neutrophils # Seg Neutrophils # Man Lymphocytes # (Manual) Monocytes # (Manual) Eosinophils # (Manual) APTT POC ABG pH 7.528 H ABG pH POC ABG pCO2 POC ABG pO2 63 L ABG pO2 ABG HCO3 ABG O2 Saturation ABG Base Excess ABG Hemoglobin VBG pH Oxyhemoglobin Sodium Potassium Chloride Carbon Dioxide BUN Creatinine Glucose POC Glucose 126 H 117 H Lactic Acid Calcium Phosphorus Total Bilirubin AST ALT C-Reactive Protein Total Protein Albumin Triglycerides Amylase Lipase Urine WBC (Auto) Vancomycin Trough Crossmatch 12/22/17 12/22/17 12/22/17 09:12 10:34 10:34 WBC 29.5 H RBC 3.44 L Hgb 11.2 L Hct 34.2 L MCV 99 H MCH 33 H MCHC RDW 13.1 L Plt Count 97 L Lymph % (Auto) Eos % (Auto) [place] # Eos # Baso # Seg Neutrophils % Seg Neuts % (Manual) 88.0 H Lymphocytes % (Manual) 5.0 L Monocytes % (Manual) Eosinophils % (Manual) Nucleated RBC % Seg Neutrophils # Seg Neutrophils # Man 26.0 H Lymphocytes # (Manual) Monocytes # (Manual) Eosinophils # (Manual) APTT POC ABG pH ABG pH POC ABG pCO2 POC ABG pO2 ABG pO2 ABG HCO3 ABG O2 Saturation ABG Base Excess ABG Hemoglobin VBG pH Oxyhemoglobin Sodium 146 H Potassium 3.1 L Chloride Carbon Dioxide BUN 25 H Creatinine 0.7 L Glucose 146 H POC Glucose 168 H Lactic Acid Calcium 8.1 L Phosphorus Total Bilirubin AST ALT C-Reactive Protein Total Protein Albumin Triglycerides Amylase Lipase Urine WBC (Auto) Vancomycin Trough Crossmatch 12/22/17 12/22/17 12/22/17 14:51 17:21 21:43 WBC RBC Hgb Hct MCV MCH MCHC RDW Plt Count Lymph % (Auto) Eos % (Auto) [place] # Eos # Baso # Seg Neutrophils % Seg Neuts % (Manual) Lymphocytes % (Manual) Monocytes % (Manual) Eosinophils % (Manual) Nucleated RBC % Seg Neutrophils # Seg Neutrophils # Man Lymphocytes # (Manual) Monocytes # (Manual) Eosinophils # (Manual) APTT POC ABG pH ABG pH POC ABG pCO2 POC ABG pO2 ABG pO2 ABG HCO3 ABG O2 Saturation ABG Base Excess ABG Hemoglobin VBG pH Oxyhemoglobin Sodium Potassium Chloride Carbon Dioxide BUN Creatinine Glucose POC Glucose 125 H 110 H 153 H Lactic Acid Calcium Phosphorus Total Bilirubin AST ALT C-Reactive Protein Total Protein Albumin Triglycerides Amylase Lipase Urine WBC (Auto) Vancomycin Trough Crossmatch 12/23/17 12/23/17 12/23/17 04:33 05:28 09:25 WBC 31.4 H RBC 3.05 L Hgb 9.8 L Hct 30.2 L MCV 99 H MCH MCHC RDW 12.9 L Plt Count 101 L Lymph % (Auto) Eos % (Auto) [place] # Eos # Baso # Seg Neutrophils % Seg Neuts % (Manual) 97 H Lymphocytes % (Manual) 2 L Monocytes % (Manual) Eosinophils % (Manual) Nucleated RBC % Seg Neutrophils # Seg Neutrophils # Man 31.1 H Lymphocytes # (Manual) 0.5 L Monocytes # (Manual) Eosinophils # (Manual) APTT POC ABG pH 7.573 H ABG pH POC ABG pCO2 31.0 L POC ABG pO2 63 L ABG pO2 ABG HCO3 ABG O2 Saturation ABG Base Excess ABG Hemoglobin VBG pH Oxyhemoglobin Sodium Potassium Chloride Carbon Dioxide BUN Creatinine Glucose POC Glucose 124 H Lactic Acid Calcium Phosphorus Total Bilirubin AST ALT C-Reactive Protein Total Protein Albumin Triglycerides Amylase Lipase Urine WBC (Auto) Vancomycin Trough Crossmatch 12/23/17 12/23/17 12/23/17 09:25 10:08 14:20 WBC RBC Hgb Hct MCV MCH MCHC RDW Plt Count Lymph % (Auto) Eos % (Auto) [place] # Eos # Baso # Seg Neutrophils % Seg Neuts % (Manual) Lymphocytes % (Manual) Monocytes % (Manual) Eosinophils % (Manual) Nucleated RBC % Seg Neutrophils # Seg Neutrophils # Man Lymphocytes # (Manual) Monocytes # (Manual) Eosinophils # (Manual) APTT POC ABG pH ABG pH POC ABG pCO2 POC ABG pO2 ABG pO2 ABG HCO3 ABG O2 Saturation ABG Base Excess ABG Hemoglobin VBG pH Oxyhemoglobin Sodium Potassium 3.1 L Chloride Carbon Dioxide BUN Creatinine 0.6 L Glucose 169 H POC Glucose 171 H 211 H Lactic Acid Calcium 7.9 L Phosphorus Total Bilirubin AST ALT C-Reactive Protein Total Protein Albumin Triglycerides Amylase Lipase Urine WBC (Auto) Vancomycin Trough Crossmatch 12/23/17 12/23/17 12/24/17 18:59 21:49 01:47 WBC RBC Hgb Hct MCV MCH MCHC RDW Plt Count Lymph % (Auto) Eos % (Auto) [place] # Eos # Baso # Seg Neutrophils % Seg Neuts % (Manual) Lymphocytes % (Manual) Monocytes % (Manual) Eosinophils % (Manual) Nucleated RBC % Seg Neutrophils # Seg Neutrophils # Man Lymphocytes # (Manual) Monocytes # (Manual) Eosinophils # (Manual) APTT POC ABG pH ABG pH POC ABG pCO2 POC ABG pO2 ABG pO2 ABG HCO3 ABG O2 Saturation ABG Base Excess ABG Hemoglobin VBG pH Oxyhemoglobin Sodium Potassium Chloride Carbon Dioxide BUN Creatinine Glucose POC Glucose 175 H 146 H 143 H Lactic Acid Calcium Phosphorus Total Bilirubin AST ALT C-Reactive Protein Total Protein Albumin Triglycerides Amylase Lipase Urine WBC (Auto) Vancomycin Trough Crossmatch 12/24/17 12/24/17 12/24/17 05:40 10:12 13:12 WBC RBC Hgb Hct MCV MCH MCHC RDW Plt Count Lymph % (Auto) Eos % (Auto) [place] # Eos # Baso # Seg Neutrophils % Seg Neuts % (Manual) Lymphocytes % (Manual) Monocytes % (Manual) Eosinophils % (Manual) Nucleated RBC % Seg Neutrophils # Seg Neutrophils # Man Lymphocytes # (Manual) Monocytes # (Manual) Eosinophils # (Manual) APTT POC ABG pH 7.558 H ABG pH POC ABG pCO2 27.6 L POC ABG pO2 71 L ABG pO2 ABG HCO3 ABG O2 Saturation ABG Base Excess ABG Hemoglobin VBG pH Oxyhemoglobin Sodium Potassium Chloride Carbon Dioxide BUN Creatinine Glucose POC Glucose 118 H 111 H Lactic Acid Calcium Phosphorus Total Bilirubin AST ALT C-Reactive Protein Total Protein Albumin Triglycerides Amylase Lipase Urine WBC (Auto) Vancomycin Trough Crossmatch 12/24/17 12/24/17 12/24/17 16:26 20:44 21:49 WBC RBC Hgb Hct MCV MCH MCHC RDW Plt Count Lymph % (Auto) Eos % (Auto) [place] # Eos # Baso # Seg Neutrophils % Seg Neuts % (Manual) Lymphocytes % (Manual) Monocytes % (Manual) Eosinophils % (Manual) Nucleated RBC % Seg Neutrophils # Seg Neutrophils # Man Lymphocytes # (Manual) Monocytes # (Manual) Eosinophils # (Manual) APTT POC ABG pH ABG pH POC ABG pCO2 POC ABG pO2 ABG pO2 ABG HCO3 ABG O2 Saturation ABG Base Excess ABG Hemoglobin VBG pH Oxyhemoglobin Sodium Potassium Chloride Carbon Dioxide BUN Creatinine Glucose POC Glucose 113 H 124 H 115 H Lactic Acid Calcium Phosphorus Total Bilirubin AST ALT C-Reactive Protein Total Protein Albumin Triglycerides Amylase Lipase Urine WBC (Auto) Vancomycin Trough Crossmatch 12/24/17 12/25/17 12/25/17 Unknown 02:26 03:38 WBC RBC Hgb Hct MCV MCH MCHC RDW Plt Count Lymph % (Auto) Eos % (Auto) [place] # Eos # Baso # Seg Neutrophils % Seg Neuts % (Manual) Lymphocytes % (Manual) Monocytes % (Manual) Eosinophils % (Manual) Nucleated RBC % Seg Neutrophils # Seg Neutrophils # Man Lymphocytes # (Manual) Monocytes # (Manual) Eosinophils # (Manual) APTT POC ABG pH 7.503 H ABG pH POC ABG pCO2 POC ABG pO2 66 L ABG pO2 ABG HCO3 ABG O2 Saturation ABG Base Excess ABG Hemoglobin VBG pH Oxyhemoglobin Sodium Potassium 3.0 L Chloride Carbon Dioxide BUN Creatinine 0.5 L Glucose 166 H POC Glucose 106 H Lactic Acid Calcium 7.8 L Phosphorus Total Bilirubin AST ALT C-Reactive Protein Total Protein Albumin Triglycerides Amylase Lipase Urine WBC (Auto) Vancomycin Trough Crossmatch 12/25/17 12/25/17 12/25/17 04:58 12:58 15:06 WBC RBC Hgb Hct MCV MCH MCHC RDW Plt Count Lymph % (Auto) Eos % (Auto) [place] # Eos # Baso # Seg Neutrophils % Seg Neuts % (Manual) Lymphocytes % (Manual) Monocytes % (Manual) Eosinophils % (Manual) Nucleated RBC % Seg Neutrophils # Seg Neutrophils # Man Lymphocytes # (Manual) Monocytes # (Manual) Eosinophils # (Manual) APTT POC ABG pH ABG pH POC ABG pCO2 POC ABG pO2 ABG pO2 ABG HCO3 ABG O2 Saturation ABG Base Excess ABG Hemoglobin VBG pH Oxyhemoglobin Sodium Potassium Chloride Carbon Dioxide BUN Creatinine Glucose POC Glucose 113 H 118 H Lactic Acid Calcium Phosphorus Total Bilirubin AST ALT C-Reactive Protein Total Protein Albumin Triglycerides Amylase Lipase Urine WBC (Auto) Vancomycin Trough 22.5 H Crossmatch 12/25/17 12/25/17 12/25/17 17:59 21:33 Unknown WBC 20.5 H RBC 2.75 L Hgb 9.1 L Hct 27.1 L MCV 99 H MCH 33 H MCHC RDW Plt Count 126 L Lymph % (Auto) Eos % (Auto) [place] # Eos # Baso # Seg Neutrophils % Seg Neuts % (Manual) 89.0 H Lymphocytes % (Manual) 6.0 L Monocytes % (Manual) Eosinophils % (Manual) Nucleated RBC % Seg Neutrophils # Seg Neutrophils # Man 18.2 H Lymphocytes # (Manual) Monocytes # (Manual) Eosinophils # (Manual) APTT POC ABG pH ABG pH POC ABG pCO2 POC ABG pO2 ABG pO2 ABG HCO3 ABG O2 Saturation ABG Base Excess ABG Hemoglobin VBG pH Oxyhemoglobin Sodium Potassium Chloride Carbon Dioxide BUN Creatinine Glucose POC Glucose 145 H 167 H Lactic Acid Calcium Phosphorus Total Bilirubin AST ALT C-Reactive Protein Total Protein Albumin Triglycerides Amylase Lipase Urine WBC (Auto) Vancomycin Trough Crossmatch 12/25/17 12/26/17 12/26/17 Unknown 02:26 05:29 WBC RBC Hgb Hct MCV MCH MCHC RDW Plt Count Lymph % (Auto) Eos % (Auto) [place] # Eos # Baso # Seg Neutrophils % Seg Neuts % (Manual) Lymphocytes % (Manual) Monocytes % (Manual) Eosinophils % (Manual) Nucleated RBC % Seg Neutrophils # Seg Neutrophils # Man Lymphocytes # (Manual) Monocytes # (Manual) Eosinophils # (Manual) APTT POC ABG pH ABG pH POC ABG pCO2 POC ABG pO2 ABG pO2 ABG HCO3 ABG O2 Saturation ABG Base Excess ABG Hemoglobin VBG pH Oxyhemoglobin Sodium Potassium 2.8 L* Chloride Carbon Dioxide BUN Creatinine 0.6 L Glucose POC Glucose 167 H 216 H Lactic Acid Calcium 7.4 L Phosphorus Total Bilirubin AST ALT C-Reactive Protein Total Protein Albumin Triglycerides Amylase Lipase Urine WBC (Auto) Vancomycin Trough Crossmatch 12/26/17 12/26/17 12/26/17 10:21 14:30 18:35 WBC RBC Hgb Hct MCV MCH MCHC RDW Plt Count Lymph % (Auto) Eos % (Auto) [place] # Eos # Baso # Seg Neutrophils % Seg Neuts % (Manual) Lymphocytes % (Manual) Monocytes % (Manual) Eosinophils % (Manual) Nucleated RBC % Seg Neutrophils # Seg Neutrophils # Man Lymphocytes # (Manual) Monocytes # (Manual) Eosinophils # (Manual) APTT POC ABG pH ABG pH POC ABG pCO2 POC ABG pO2 ABG pO2 ABG HCO3 ABG O2 Saturation ABG Base Excess ABG Hemoglobin VBG pH Oxyhemoglobin Sodium Potassium Chloride Carbon Dioxide BUN Creatinine Glucose POC Glucose 164 H 157 H 146 H Lactic Acid Calcium Phosphorus Total Bilirubin AST ALT C-Reactive Protein Total Protein Albumin Triglycerides Amylase Lipase Urine WBC (Auto) Vancomycin Trough Crossmatch 12/26/17 12/26/17 12/27/17 21:21 Unknown 01:54 WBC RBC Hgb Hct MCV MCH MCHC RDW Plt Count Lymph % (Auto) Eos % (Auto) [place] # Eos # Baso # Seg Neutrophils % Seg Neuts % (Manual) Lymphocytes % (Manual) Monocytes % (Manual) Eosinophils % (Manual) Nucleated RBC % Seg Neutrophils # Seg Neutrophils # Man Lymphocytes # (Manual) Monocytes # (Manual) Eosinophils # (Manual) APTT POC ABG pH ABG pH POC ABG pCO2 POC ABG pO2 ABG pO2 ABG HCO3 ABG O2 Saturation ABG Base Excess ABG Hemoglobin VBG pH Oxyhemoglobin Sodium Potassium 3.0 L Chloride Carbon Dioxide BUN Creatinine 0.5 L Glucose 166 H POC Glucose 132 H 157 H Lactic Acid Calcium 7.8 L Phosphorus Total Bilirubin AST ALT C-Reactive Protein Total Protein Albumin Triglycerides Amylase Lipase Urine WBC (Auto) Vancomycin Trough Crossmatch 12/27/17 12/27/17 12/27/17 05:20 05:20 05:44 WBC 26.4 H RBC 2.83 L Hgb 9.3 L Hct 27.6 L MCV 98 H MCH 33 H MCHC RDW Plt Count Lymph % (Auto) Eos % (Auto) [place] # Eos # Baso # Seg Neutrophils % Seg Neuts % (Manual) 85.0 H Lymphocytes % (Manual) 5.0 L Monocytes % (Manual) Eosinophils % (Manual) Nucleated RBC % Seg Neutrophils # Seg Neutrophils # Man 22.4 H Lymphocytes # (Manual) Monocytes # (Manual) Eosinophils # (Manual) 0.5 H APTT POC ABG pH ABG pH POC ABG pCO2 POC ABG pO2 ABG pO2 ABG HCO3 ABG O2 Saturation ABG Base Excess ABG Hemoglobin VBG pH Oxyhemoglobin Sodium Potassium 2.3 L* D Chloride Carbon Dioxide BUN 7 L Creatinine 0.6 L Glucose 123 H POC Glucose 128 H Lactic Acid Calcium 8.1 L Phosphorus Total Bilirubin AST ALT C-Reactive Protein Total Protein Albumin Triglycerides Amylase Lipase Urine WBC (Auto) Vancomycin Trough Crossmatch 12/27/17 12/27/17 12/27/17 10:04 14:44 15:30 WBC RBC Hgb Hct MCV MCH MCHC RDW Plt Count Lymph % (Auto) Eos % (Auto) [place] # Eos # Baso # Seg Neutrophils % Seg Neuts % (Manual) Lymphocytes % (Manual) Monocytes % (Manual) Eosinophils % (Manual) Nucleated RBC % Seg Neutrophils # Seg Neutrophils # Man Lymphocytes # (Manual) Monocytes # (Manual) Eosinophils # (Manual) APTT POC ABG pH ABG pH POC ABG pCO2 POC ABG pO2 ABG pO2 ABG HCO3 ABG O2 Saturation ABG Base Excess ABG Hemoglobin VBG pH Oxyhemoglobin Sodium Potassium 3.1 L D Chloride Carbon Dioxide BUN Creatinine Glucose POC Glucose 115 H 128 H Lactic Acid Calcium Phosphorus Total Bilirubin AST ALT C-Reactive Protein Total Protein Albumin Triglycerides Amylase Lipase Urine WBC (Auto) Vancomycin Trough Crossmatch 12/28/17 12/28/17 12/28/17 00:39 02:13 05:17 WBC RBC Hgb Hct MCV MCH MCHC RDW Plt Count Lymph % (Auto) Eos % (Auto) [place] # Eos # Baso # Seg Neutrophils % Seg Neuts % (Manual) Lymphocytes % (Manual) Monocytes % (Manual) Eosinophils % (Manual) Nucleated RBC % Seg Neutrophils # Seg Neutrophils # Man Lymphocytes # (Manual) Monocytes # (Manual) Eosinophils # (Manual) APTT POC ABG pH ABG pH 7.497 H POC ABG pCO2 POC ABG pO2 ABG pO2 71.4 L ABG HCO3 29.9 H ABG O2 Saturation ABG Base Excess 6.2 H ABG Hemoglobin 7.9 L VBG pH Oxyhemoglobin 94.9 L Sodium Potassium Chloride Carbon Dioxide BUN Creatinine Glucose POC Glucose 112 H 108 H Lactic Acid Calcium Phosphorus Total Bilirubin AST ALT C-Reactive Protein Total Protein Albumin Triglycerides Amylase Lipase Urine WBC (Auto) Vancomycin Trough Crossmatch 12/28/17 12/28/17 12/28/17 08:47 08:47 09:10 WBC 28.1 H RBC 2.76 L Hgb 9.1 L Hct 27.0 L MCV 98 H MCH 33 H MCHC RDW Plt Count Lymph % (Auto) Eos % (Auto) [place] # Eos # Baso # Seg Neutrophils % Seg Neuts % (Manual) Lymphocytes % (Manual) Monocytes % (Manual) Eosinophils % (Manual) Nucleated RBC % Seg Neutrophils # Seg Neutrophils # Man Lymphocytes # (Manual) Monocytes # (Manual) Eosinophils # (Manual) APTT POC ABG pH ABG pH POC ABG pCO2 POC ABG pO2 ABG pO2 ABG HCO3 ABG O2 Saturation ABG Base Excess ABG Hemoglobin VBG pH Oxyhemoglobin Sodium Potassium 2.2 L* D Chloride Carbon Dioxide BUN 5 L Creatinine 0.5 L Glucose 106 H POC Glucose Lactic Acid Calcium 8.3 L Phosphorus 2.20 L Total Bilirubin AST ALT C-Reactive Protein Total Protein Albumin Triglycerides Amylase Lipase Urine WBC (Auto) Vancomycin Trough Crossmatch 12/28/17 12/28/17 12/28/17 13:28 14:22 18:48 WBC RBC Hgb Hct MCV MCH MCHC RDW Plt Count Lymph % (Auto) Eos % (Auto) [place] # Eos # Baso # Seg Neutrophils % Seg Neuts % (Manual) Lymphocytes % (Manual) Monocytes % (Manual) Eosinophils % (Manual) Nucleated RBC % Seg Neutrophils # Seg Neutrophils # Man Lymphocytes # (Manual) Monocytes # (Manual) Eosinophils # (Manual) APTT POC ABG pH ABG pH 7.476 H POC ABG pCO2 POC ABG pO2 ABG pO2 167.7 H ABG HCO3 30.9 H ABG O2 Saturation 99.1 H ABG Base Excess 6.7 H ABG Hemoglobin 8.5 L VBG pH Oxyhemoglobin Sodium Potassium Chloride Carbon Dioxide BUN Creatinine Glucose POC Glucose 141 H 129 H Lactic Acid Calcium Phosphorus Total Bilirubin AST ALT C-Reactive Protein Total Protein Albumin Triglycerides Amylase Lipase Urine WBC (Auto) Vancomycin Trough Crossmatch 12/28/17 12/29/17 12/29/17 21:22 02:45 05:11 WBC RBC Hgb Hct MCV MCH MCHC RDW Plt Count Lymph % (Auto) Eos % (Auto) [place] # Eos # Baso # Seg Neutrophils % Seg Neuts % (Manual) Lymphocytes % (Manual) Monocytes % (Manual) Eosinophils % (Manual) Nucleated RBC % Seg Neutrophils # Seg Neutrophils # Man Lymphocytes # (Manual) Monocytes # (Manual) Eosinophils # (Manual) APTT POC ABG pH ABG pH POC ABG pCO2 POC ABG pO2 ABG pO2 ABG HCO3 ABG O2 Saturation ABG Base Excess ABG Hemoglobin VBG pH Oxyhemoglobin Sodium Potassium Chloride Carbon Dioxide BUN Creatinine Glucose POC Glucose 123 H 138 H 138 H Lactic Acid Calcium Phosphorus Total Bilirubin AST ALT C-Reactive Protein Total Protein Albumin Triglycerides Amylase Lipase Urine WBC (Auto) Vancomycin Trough Crossmatch 12/29/17 12/29/17 12/29/17 05:50 08:04 08:04 WBC 20.8 H RBC 2.26 L Hgb 7.5 L Hct 22.7 L MCV 100 H MCH 33 H MCHC RDW Plt Count Lymph % (Auto) Eos % (Auto) [place] # Eos # Baso # Seg Neutrophils % Seg Neuts % (Manual) 93.0 H Lymphocytes % (Manual) 2.0 L Monocytes % (Manual) Eosinophils % (Manual) Nucleated RBC % Seg Neutrophils # Seg Neutrophils # Man 19.3 H Lymphocytes # (Manual) 0.4 L Monocytes # (Manual) Eosinophils # (Manual) 0.7 H APTT POC ABG pH ABG pH 7.467 H POC ABG pCO2 POC ABG pO2 ABG pO2 ABG HCO3 28.2 H ABG O2 Saturation ABG Base Excess 4.0 H ABG Hemoglobin < 5.1 L VBG pH Oxyhemoglobin Sodium Potassium 3.0 L D Chloride Carbon Dioxide BUN Creatinine 0.5 L Glucose 147 H POC Glucose Lactic Acid Calcium 7.8 L Phosphorus Total Bilirubin AST ALT C-Reactive Protein Total Protein 5.6 L Albumin 2.4 L Triglycerides Amylase Lipase Urine WBC (Auto) Vancomycin Trough Crossmatch 12/29/17 12/29/17 12/29/17 08:20 10:59 14:09 WBC RBC Hgb Hct MCV MCH MCHC RDW Plt Count Lymph % (Auto) Eos % (Auto) [place] # Eos # Baso # Seg Neutrophils % Seg Neuts % (Manual) Lymphocytes % (Manual) Monocytes % (Manual) Eosinophils % (Manual) Nucleated RBC % Seg Neutrophils # Seg Neutrophils # Man Lymphocytes # (Manual) Monocytes # (Manual) Eosinophils # (Manual) APTT POC ABG pH ABG pH POC ABG pCO2 POC ABG pO2 ABG pO2 ABG HCO3 ABG O2 Saturation ABG Base Excess ABG Hemoglobin VBG pH Oxyhemoglobin Sodium Potassium Chloride Carbon Dioxide BUN Creatinine Glucose POC Glucose 153 H 186 H 183 H Lactic Acid Calcium Phosphorus Total Bilirubin AST ALT C-Reactive Protein Total Protein Albumin Triglycerides Amylase Lipase Urine WBC (Auto) Vancomycin Trough Crossmatch 12/29/17 12/29/17 12/29/17 18:03 22:05 22:56 WBC RBC Hgb Hct MCV MCH MCHC RDW Plt Count Lymph % (Auto) Eos % (Auto) [place] # Eos # Baso # Seg Neutrophils % Seg Neuts % (Manual) Lymphocytes % (Manual) Monocytes % (Manual) Eosinophils % (Manual) Nucleated RBC % Seg Neutrophils # Seg Neutrophils # Man Lymphocytes # (Manual) Monocytes # (Manual) Eosinophils # (Manual) APTT POC ABG pH ABG pH POC ABG pCO2 POC ABG pO2 ABG pO2 ABG HCO3 ABG O2 Saturation ABG Base Excess ABG Hemoglobin VBG pH Oxyhemoglobin Sodium Potassium Chloride Carbon Dioxide BUN Creatinine Glucose POC Glucose 159 H 146 H 179 H Lactic Acid Calcium Phosphorus Total Bilirubin AST ALT C-Reactive Protein Total Protein Albumin Triglycerides Amylase Lipase Urine WBC (Auto) Vancomycin Trough Crossmatch 12/30/17 12/30/17 12/30/17 02:03 04:50 04:50 WBC 18.3 H RBC 2.22 L Hgb 7.4 L Hct 23.0 L MCV 104 H MCH 33 H MCHC RDW Plt Count 137 L Lymph % (Auto) 9.0 L Eos % (Auto) [place] # Eos # 0.5 H Baso # Seg Neutrophils % 84.9 H Seg Neuts % (Manual) Lymphocytes % (Manual) Monocytes % (Manual) Eosinophils % (Manual) Nucleated RBC % Seg Neutrophils # 15.6 H Seg Neutrophils # Man Lymphocytes # (Manual) Monocytes # (Manual) Eosinophils # (Manual) APTT POC ABG pH ABG pH POC ABG pCO2 POC ABG pO2 ABG pO2 ABG HCO3 ABG O2 Saturation ABG Base Excess ABG Hemoglobin VBG pH Oxyhemoglobin Sodium 147 H Potassium 3.1 L D Chloride 107.5 H Carbon Dioxide BUN Creatinine 0.5 L Glucose 120 H POC Glucose 118 H Lactic Acid Calcium 7.4 L Phosphorus Total Bilirubin AST ALT C-Reactive Protein Total Protein Albumin Triglycerides Amylase Lipase Urine WBC (Auto) Vancomycin Trough Crossmatch 12/30/17 12/30/17 12/30/17 05:04 13:53 17:33 WBC RBC Hgb Hct MCV MCH MCHC RDW Plt Count Lymph % (Auto) Eos % (Auto) [place] # Eos # Baso # Seg Neutrophils % Seg Neuts % (Manual) Lymphocytes % (Manual) Monocytes % (Manual) Eosinophils % (Manual) Nucleated RBC % Seg Neutrophils # Seg Neutrophils # Man Lymphocytes # (Manual) Monocytes # (Manual) Eosinophils # (Manual) APTT POC ABG pH ABG pH POC ABG pCO2 POC ABG pO2 ABG pO2 ABG HCO3 ABG O2 Saturation ABG Base Excess ABG Hemoglobin VBG pH Oxyhemoglobin Sodium Potassium Chloride Carbon Dioxide BUN Creatinine Glucose POC Glucose 150 H 113 H 145 H Lactic Acid Calcium Phosphorus Total Bilirubin AST ALT C-Reactive Protein Total Protein Albumin Triglycerides Amylase Lipase Urine WBC (Auto) Vancomycin Trough Crossmatch 12/31/17 12/31/17 12/31/17 01:54 03:15 03:15 WBC 17.1 H RBC 2.08 L Hgb 6.9 L Hct 20.6 L MCV 99 H MCH 33 H MCHC RDW 13.1 L Plt Count Lymph % (Auto) 10.5 L Eos % (Auto) [place] # Eos # 0.6 H Baso # Seg Neutrophils % 82.3 H Seg Neuts % (Manual) Lymphocytes % (Manual) Monocytes % (Manual) Eosinophils % (Manual) Nucleated RBC % Seg Neutrophils # 14.0 H Seg Neutrophils # Man Lymphocytes # (Manual) Monocytes # (Manual) Eosinophils # (Manual) APTT POC ABG pH ABG pH POC ABG pCO2 POC ABG pO2 ABG pO2 ABG HCO3 ABG O2 Saturation ABG Base Excess ABG Hemoglobin VBG pH Oxyhemoglobin Sodium Potassium 3.5 L Chloride Carbon Dioxide BUN Creatinine 0.6 L Glucose POC Glucose 69 L Lactic Acid Calcium 7.8 L Phosphorus Total Bilirubin AST ALT C-Reactive Protein Total Protein Albumin Triglycerides Amylase Lipase Urine WBC (Auto) Vancomycin Trough Crossmatch 12/31/17 12/31/17 12/31/17 05:15 09:25 10:17 WBC RBC Hgb Hct MCV MCH MCHC RDW Plt Count Lymph % (Auto) Eos % (Auto) [place] # Eos # Baso # Seg Neutrophils % Seg Neuts % (Manual) Lymphocytes % (Manual) Monocytes % (Manual) Eosinophils % (Manual) Nucleated RBC % Seg Neutrophils # Seg Neutrophils # Man Lymphocytes # (Manual) Monocytes # (Manual) Eosinophils # (Manual) APTT POC ABG pH ABG pH 7.516 H POC ABG pCO2 POC ABG pO2 ABG pO2 69.2 L ABG HCO3 28.7 H ABG O2 Saturation ABG Base Excess 5.3 H ABG Hemoglobin 6.6 L VBG pH Oxyhemoglobin 93.8 L Sodium Potassium Chloride Carbon Dioxide BUN Creatinine Glucose POC Glucose 143 H Lactic Acid Calcium Phosphorus Total Bilirubin AST ALT C-Reactive Protein Total Protein Albumin Triglycerides Amylase Lipase Urine WBC (Auto) Vancomycin Trough Crossmatch See Detail 12/31/17 12/31/17 12/31/17 14:20 18:30 21:40 WBC RBC Hgb Hct MCV MCH MCHC RDW Plt Count Lymph % (Auto) Eos % (Auto) [place] # Eos # Baso # Seg Neutrophils % Seg Neuts % (Manual) Lymphocytes % (Manual) Monocytes % (Manual) Eosinophils % (Manual) Nucleated RBC % Seg Neutrophils # Seg Neutrophils # Man Lymphocytes # (Manual) Monocytes # (Manual) Eosinophils # (Manual) APTT POC ABG pH ABG pH POC ABG pCO2 POC ABG pO2 ABG pO2 ABG HCO3 ABG O2 Saturation ABG Base Excess ABG Hemoglobin VBG pH Oxyhemoglobin Sodium Potassium Chloride Carbon Dioxide BUN Creatinine Glucose POC Glucose 175 H 137 H 182 H Lactic Acid Calcium Phosphorus Total Bilirubin AST ALT C-Reactive Protein Total Protein Albumin Triglycerides Amylase Lipase Urine WBC (Auto) Vancomycin Trough Crossmatch 12/31/17 01/01/18 01/01/18 23:34 02:09 04:00 WBC 16.4 H RBC 2.41 L Hgb 7.8 L Hct 23.6 L MCV 98 H MCH 33 H MCHC RDW Plt Count Lymph % (Auto) 10.7 L Eos % (Auto) [place] # Eos # 0.7 H Baso # 0.2 H Seg Neutrophils % 79.0 H Seg Neuts % (Manual) Lymphocytes % (Manual) Monocytes % (Manual) Eosinophils % (Manual) Nucleated RBC % Seg Neutrophils # 12.9 H Seg Neutrophils # Man Lymphocytes # (Manual) Monocytes # (Manual) Eosinophils # (Manual) APTT POC ABG pH ABG pH POC ABG pCO2 POC ABG pO2 ABG pO2 ABG HCO3 ABG O2 Saturation ABG Base Excess ABG Hemoglobin VBG pH Oxyhemoglobin Sodium Potassium Chloride Carbon Dioxide BUN Creatinine Glucose POC Glucose 132 H 117 H Lactic Acid Calcium Phosphorus Total Bilirubin AST ALT C-Reactive Protein Total Protein Albumin Triglycerides Amylase Lipase Urine WBC (Auto) Vancomycin Trough Crossmatch 01/01/18 01/01/18 01/01/18 04:00 04:04 05:32 WBC RBC Hgb Hct MCV MCH MCHC RDW Plt Count Lymph % (Auto) Eos % (Auto) [place] # Eos # Baso # Seg Neutrophils % Seg Neuts % (Manual) Lymphocytes % (Manual) Monocytes % (Manual) Eosinophils % (Manual) Nucleated RBC % Seg Neutrophils # Seg Neutrophils # Man Lymphocytes # (Manual) Monocytes # (Manual) Eosinophils # (Manual) APTT POC ABG pH ABG pH 7.458 H POC ABG pCO2 POC ABG pO2 ABG pO2 67.5 L ABG HCO3 27.5 H ABG O2 Saturation 94.4 L ABG Base Excess 3.4 H ABG Hemoglobin 7.8 L VBG pH Oxyhemoglobin 92.1 L Sodium Potassium Chloride Carbon Dioxide BUN Creatinine 0.4 L Glucose 129 H POC Glucose 129 H Lactic Acid Calcium 7.9 L Phosphorus Total Bilirubin AST ALT C-Reactive Protein Total Protein Albumin Triglycerides Amylase Lipase Urine WBC (Auto) Vancomycin Trough Crossmatch 01/01/18 01/01/18 01/01/18 10:10 12:38 17:27 WBC RBC Hgb Hct MCV MCH MCHC RDW Plt Count Lymph % (Auto) Eos % (Auto) [place] # Eos # Baso # Seg Neutrophils % Seg Neuts % (Manual) Lymphocytes % (Manual) Monocytes % (Manual) Eosinophils % (Manual) Nucleated RBC % Seg Neutrophils # Seg Neutrophils # Man Lymphocytes # (Manual) Monocytes # (Manual) Eosinophils # (Manual) APTT POC ABG pH ABG pH POC ABG pCO2 POC ABG pO2 ABG pO2 ABG HCO3 ABG O2 Saturation ABG Base Excess ABG Hemoglobin VBG pH Oxyhemoglobin Sodium Potassium Chloride Carbon Dioxide BUN Creatinine Glucose POC Glucose 155 H 179 H 152 H Lactic Acid Calcium Phosphorus Total Bilirubin AST ALT C-Reactive Protein Total Protein Albumin Triglycerides Amylase Lipase Urine WBC (Auto) Vancomycin Trough Crossmatch 01/01/18 01/02/18 01/02/18 21:36 01:42 04:10 WBC 12.1 H RBC 2.29 L Hgb 7.5 L Hct 22.7 L MCV 99 H MCH 33 H MCHC RDW Plt Count Lymph % (Auto) Eos % (Auto) 5.5 H [place] # 0.9 H Eos # 0.7 H Baso # Seg Neutrophils % Seg Neuts % (Manual) Lymphocytes % (Manual) Monocytes % (Manual) Eosinophils % (Manual) Nucleated RBC % Seg Neutrophils # 8.3 H Seg Neutrophils # Man Lymphocytes # (Manual) Monocytes # (Manual) Eosinophils # (Manual) APTT POC ABG pH ABG pH POC ABG pCO2 POC ABG pO2 ABG pO2 ABG HCO3 ABG O2 Saturation ABG Base Excess ABG Hemoglobin VBG pH Oxyhemoglobin Sodium Potassium Chloride Carbon Dioxide BUN Creatinine Glucose POC Glucose 118 H 117 H Lactic Acid Calcium Phosphorus Total Bilirubin AST ALT C-Reactive Protein Total Protein Albumin Triglycerides Amylase Lipase Urine WBC (Auto) Vancomycin Trough Crossmatch 01/02/18 01/02/18 01/02/18 04:10 04:57 13:42 WBC RBC Hgb Hct MCV MCH MCHC RDW Plt Count Lymph % (Auto) Eos % (Auto) [place] # Eos # Baso # Seg Neutrophils % Seg Neuts % (Manual) Lymphocytes % (Manual) Monocytes % (Manual) Eosinophils % (Manual) Nucleated RBC % Seg Neutrophils # Seg Neutrophils # Man Lymphocytes # (Manual) Monocytes # (Manual) Eosinophils # (Manual) APTT POC ABG pH ABG pH POC ABG pCO2 POC ABG pO2 ABG pO2 ABG HCO3 ABG O2 Saturation ABG Base Excess ABG Hemoglobin VBG pH Oxyhemoglobin Sodium Potassium Chloride 97.0 L Carbon Dioxide BUN Creatinine 0.4 L Glucose POC Glucose 107 H 133 H Lactic Acid Calcium 8.1 L Phosphorus Total Bilirubin AST ALT C-Reactive Protein Total Protein 6.0 L Albumin 2.5 L Triglycerides Amylase Lipase Urine WBC (Auto) Vancomycin Trough Crossmatch 01/02/18 01/02/18 01/03/18 17:33 22:11 02:18 WBC RBC Hgb Hct MCV MCH MCHC RDW Plt Count Lymph % (Auto) Eos % (Auto) [place] # Eos # Baso # Seg Neutrophils % Seg Neuts % (Manual) Lymphocytes % (Manual) Monocytes % (Manual) Eosinophils % (Manual) Nucleated RBC % Seg Neutrophils # Seg Neutrophils # Man Lymphocytes # (Manual) Monocytes # (Manual) Eosinophils # (Manual) APTT POC ABG pH ABG pH POC ABG pCO2 POC ABG pO2 ABG pO2 ABG HCO3 ABG O2 Saturation ABG Base Excess ABG Hemoglobin VBG pH Oxyhemoglobin Sodium Potassium Chloride Carbon Dioxide BUN Creatinine Glucose POC Glucose 146 H 171 H 162 H Lactic Acid Calcium Phosphorus Total Bilirubin AST ALT C-Reactive Protein Total Protein Albumin Triglycerides Amylase Lipase Urine WBC (Auto) Vancomycin Trough Crossmatch 01/03/18 01/03/18 01/03/18 04:56 05:21 17:20 WBC RBC Hgb Hct MCV MCH MCHC RDW Plt Count Lymph % (Auto) Eos % (Auto) [place] # Eos # Baso # Seg Neutrophils % Seg Neuts % (Manual) Lymphocytes % (Manual) Monocytes % (Manual) Eosinophils % (Manual) Nucleated RBC % Seg Neutrophils # Seg Neutrophils # Man Lymphocytes # (Manual) Monocytes # (Manual) Eosinophils # (Manual) APTT POC ABG pH ABG pH POC ABG pCO2 POC ABG pO2 ABG pO2 79.5 L ABG HCO3 31.4 H ABG O2 Saturation ABG Base Excess 6.3 H ABG Hemoglobin 10.4 L VBG pH Oxyhemoglobin 94.2 L Sodium Potassium Chloride Carbon Dioxide BUN Creatinine Glucose POC Glucose 163 H 153 H Lactic Acid Calcium Phosphorus Total Bilirubin AST ALT C-Reactive Protein Total Protein Albumin Triglycerides Amylase Lipase Urine WBC (Auto) Vancomycin Trough Crossmatch 01/03/18 01/03/18 01/04/18 17:50 19:52 00:40 WBC RBC Hgb Hct MCV MCH MCHC RDW Plt Count Lymph % (Auto) Eos % (Auto) [place] # Eos # Baso # Seg Neutrophils % Seg Neuts % (Manual) Lymphocytes % (Manual) Monocytes % (Manual) Eosinophils % (Manual) Nucleated RBC % Seg Neutrophils # Seg Neutrophils # Man Lymphocytes # (Manual) Monocytes # (Manual) Eosinophils # (Manual) APTT POC ABG pH ABG pH POC ABG pCO2 POC ABG pO2 ABG pO2 ABG HCO3 ABG O2 Saturation ABG Base Excess ABG Hemoglobin VBG pH Oxyhemoglobin Sodium Potassium Chloride Carbon Dioxide BUN Creatinine Glucose POC Glucose 157 H 147 H 158 H Lactic Acid Calcium Phosphorus Total Bilirubin AST ALT C-Reactive Protein Total Protein Albumin Triglycerides Amylase Lipase Urine WBC (Auto) Vancomycin Trough Crossmatch 01/04/18 01/04/18 01/04/18 04:01 05:13 06:12 WBC 11.5 H RBC 2.95 L Hgb 9.8 L Hct 29.5 L D MCV 100 H MCH 33 H MCHC RDW Plt Count Lymph % (Auto) Eos % (Auto) [place] # Eos # Baso # Seg Neutrophils % Seg Neuts % (Manual) Lymphocytes % (Manual) Monocytes % (Manual) Eosinophils % (Manual) 6.0 H Nucleated RBC % Seg Neutrophils # Seg Neutrophils # Man Lymphocytes # (Manual) Monocytes # (Manual) Eosinophils # (Manual) 0.7 H APTT POC ABG pH ABG pH 7.498 H POC ABG pCO2 POC ABG pO2 ABG pO2 129.5 H ABG HCO3 30.1 H ABG O2 Saturation ABG Base Excess 6.4 H ABG Hemoglobin 9.3 L VBG pH Oxyhemoglobin Sodium Potassium Chloride Carbon Dioxide BUN Creatinine Glucose POC Glucose 163 H Lactic Acid Calcium Phosphorus Total Bilirubin AST ALT C-Reactive Protein Total Protein Albumin Triglycerides Amylase Lipase Urine WBC (Auto) Vancomycin Trough Crossmatch 01/04/18 01/04/18 01/04/18 06:12 10:55 14:29 WBC RBC Hgb Hct MCV MCH MCHC RDW Plt Count Lymph % (Auto) Eos % (Auto) [place] # Eos # Baso # Seg Neutrophils % Seg Neuts % (Manual) Lymphocytes % (Manual) Monocytes % (Manual) Eosinophils % (Manual) Nucleated RBC % Seg Neutrophils # Seg Neutrophils # Man Lymphocytes # (Manual) Monocytes # (Manual) Eosinophils # (Manual) APTT POC ABG pH ABG pH POC ABG pCO2 POC ABG pO2 ABG pO2 ABG HCO3 ABG O2 Saturation ABG Base Excess ABG Hemoglobin VBG pH Oxyhemoglobin Sodium Potassium Chloride Carbon Dioxide BUN Creatinine 0.5 L Glucose 174 H POC Glucose 187 H 144 H Lactic Acid Calcium Phosphorus Total Bilirubin AST 41 H ALT C-Reactive Protein Total Protein Albumin 2.9 L Triglycerides Amylase Lipase Urine WBC (Auto) Vancomycin Trough Crossmatch 01/04/18 01/04/18 01/05/18 17:25 21:56 01:59 WBC RBC Hgb Hct MCV MCH MCHC RDW Plt Count Lymph % (Auto) Eos % (Auto) [place] # Eos # Baso # Seg Neutrophils % Seg Neuts % (Manual) Lymphocytes % (Manual) Monocytes % (Manual) Eosinophils % (Manual) Nucleated RBC % Seg Neutrophils # Seg Neutrophils # Man Lymphocytes # (Manual) Monocytes # (Manual) Eosinophils # (Manual) APTT POC ABG pH ABG pH POC ABG pCO2 POC ABG pO2 ABG pO2 ABG HCO3 ABG O2 Saturation ABG Base Excess ABG Hemoglobin VBG pH Oxyhemoglobin Sodium Potassium Chloride Carbon Dioxide BUN Creatinine Glucose POC Glucose 156 H 171 H 162 H Lactic Acid Calcium Phosphorus Total Bilirubin AST ALT C-Reactive Protein Total Protein Albumin Triglycerides Amylase Lipase Urine WBC (Auto) Vancomycin Trough Crossmatch 01/05/18 01/05/18 01/05/18 03:50 06:00 06:07 WBC RBC Hgb Hct MCV MCH MCHC RDW Plt Count Lymph % (Auto) Eos % (Auto) [place] # Eos # Baso # Seg Neutrophils % Seg Neuts % (Manual) Lymphocytes % (Manual) Monocytes % (Manual) Eosinophils % (Manual) Nucleated RBC % Seg Neutrophils # Seg Neutrophils # Man Lymphocytes # (Manual) Monocytes # (Manual) Eosinophils # (Manual) APTT POC ABG pH ABG pH POC ABG pCO2 POC ABG pO2 ABG pO2 64.6 L ABG HCO3 30.2 H ABG O2 Saturation 91.3 L ABG Base Excess 5.5 H ABG Hemoglobin 10.1 L VBG pH Oxyhemoglobin 89.0 L Sodium Potassium Chloride Carbon Dioxide BUN Creatinine 0.4 L Glucose 144 H POC Glucose 136 H Lactic Acid Calcium Phosphorus Total Bilirubin AST ALT C-Reactive Protein Total Protein Albumin Triglycerides Amylase Lipase Urine WBC (Auto) Vancomycin Trough Crossmatch 01/05/18 01/05/18 01/05/18 10:46 14:03 17:31 WBC RBC Hgb Hct MCV MCH MCHC RDW Plt Count Lymph % (Auto) Eos % (Auto) [place] # Eos # Baso # Seg Neutrophils % Seg Neuts % (Manual) Lymphocytes % (Manual) Monocytes % (Manual) Eosinophils % (Manual) Nucleated RBC % Seg Neutrophils # Seg Neutrophils # Man Lymphocytes # (Manual) Monocytes # (Manual) Eosinophils # (Manual) APTT POC ABG pH ABG pH POC ABG pCO2 POC ABG pO2 ABG pO2 ABG HCO3 ABG O2 Saturation ABG Base Excess ABG Hemoglobin VBG pH Oxyhemoglobin Sodium Potassium Chloride Carbon Dioxide BUN Creatinine Glucose POC Glucose 147 H 141 H 192 H Lactic Acid Calcium Phosphorus Total Bilirubin AST ALT C-Reactive Protein Total Protein Albumin Triglycerides Amylase Lipase Urine WBC (Auto) Vancomycin Trough Crossmatch 01/05/18 01/05/18 01/06/18 22:12 Unknown 01:58 WBC RBC Hgb Hct MCV MCH MCHC RDW Plt Count Lymph % (Auto) Eos % (Auto) [place] # Eos # Baso # Seg Neutrophils % Seg Neuts % (Manual) Lymphocytes % (Manual) Monocytes % (Manual) Eosinophils % (Manual) Nucleated RBC % Seg Neutrophils # Seg Neutrophils # Man Lymphocytes # (Manual) Monocytes # (Manual) Eosinophils # (Manual) APTT POC ABG pH ABG pH 7.463 H POC ABG pCO2 POC ABG pO2 ABG pO2 74.0 L ABG HCO3 29.4 H ABG O2 Saturation ABG Base Excess 5.2 H ABG Hemoglobin 10.0 L VBG pH Oxyhemoglobin 93.4 L Sodium Potassium Chloride Carbon Dioxide BUN Creatinine Glucose POC Glucose 209 H 138 H Lactic Acid Calcium Phosphorus Total Bilirubin AST ALT C-Reactive Protein Total Protein Albumin Triglycerides Amylase Lipase Urine WBC (Auto) Vancomycin Trough Crossmatch 01/06/18 01/06/18 01/06/18 03:14 05:30 05:30 WBC 12.6 H RBC 3.16 L Hgb 10.4 L Hct 31.7 L MCV 100 H MCH 33 H MCHC RDW 15.5 H Plt Count Lymph % (Auto) Eos % (Auto) [place] # Eos # Baso # Seg Neutrophils % Seg Neuts % (Manual) 72.0 H Lymphocytes % (Manual) Monocytes % (Manual) 9.0 H Eosinophils % (Manual) Nucleated RBC % 1.0 H Seg Neutrophils # Seg Neutrophils # Man 9.1 H Lymphocytes # (Manual) Monocytes # (Manual) 1.1 H Eosinophils # (Manual) APTT POC ABG pH ABG pH POC ABG pCO2 POC ABG pO2 ABG pO2 ABG HCO3 28.8 H ABG O2 Saturation ABG Base Excess 4.2 H ABG Hemoglobin 9.3 L VBG pH Oxyhemoglobin 94.7 L Sodium 136 L Potassium Chloride 94.2 L Carbon Dioxide BUN Creatinine 0.4 L Glucose 146 H POC Glucose Lactic Acid Calcium Phosphorus Total Bilirubin AST ALT C-Reactive Protein Total Protein Albumin 3.1 L Triglycerides Amylase Lipase Urine WBC (Auto) Vancomycin Trough Crossmatch 01/06/18 01/06/18 01/06/18 05:42 10:00 14:40 WBC RBC Hgb Hct MCV MCH MCHC RDW Plt Count Lymph % (Auto) Eos % (Auto) [place] # Eos # Baso # Seg Neutrophils % Seg Neuts % (Manual) Lymphocytes % (Manual) Monocytes % (Manual) Eosinophils % (Manual) Nucleated RBC % Seg Neutrophils # Seg Neutrophils # Man Lymphocytes # (Manual) Monocytes # (Manual) Eosinophils # (Manual) APTT POC ABG pH ABG pH POC ABG pCO2 POC ABG pO2 ABG pO2 ABG HCO3 ABG O2 Saturation ABG Base Excess ABG Hemoglobin VBG pH Oxyhemoglobin Sodium Potassium Chloride Carbon Dioxide BUN Creatinine Glucose POC Glucose 158 H 155 H 115 H Lactic Acid Calcium Phosphorus Total Bilirubin AST ALT C-Reactive Protein Total Protein Albumin Triglycerides Amylase Lipase Urine WBC (Auto) Vancomycin Trough Crossmatch 01/06/18 01/06/18 01/07/18 17:45 21:59 05:29 WBC RBC Hgb Hct MCV MCH MCHC RDW Plt Count Lymph % (Auto) Eos % (Auto) [place] # Eos # Baso # Seg Neutrophils % Seg Neuts % (Manual) Lymphocytes % (Manual) Monocytes % (Manual) Eosinophils % (Manual) Nucleated RBC % Seg Neutrophils # Seg Neutrophils # Man Lymphocytes # (Manual) Monocytes # (Manual) Eosinophils # (Manual) APTT POC ABG pH ABG pH POC ABG pCO2 POC ABG pO2 ABG pO2 ABG HCO3 ABG O2 Saturation ABG Base Excess ABG Hemoglobin VBG pH Oxyhemoglobin Sodium Potassium Chloride Carbon Dioxide BUN Creatinine Glucose POC Glucose 156 H 177 H 179 H Lactic Acid Calcium Phosphorus Total Bilirubin AST ALT C-Reactive Protein Total Protein Albumin Triglycerides Amylase Lipase Urine WBC (Auto) Vancomycin Trough Crossmatch 01/07/18 01/07/18 01/07/18 10:00 14:32 18:05 WBC RBC Hgb Hct MCV MCH MCHC RDW Plt Count Lymph % (Auto) Eos % (Auto) [place] # Eos # Baso # Seg Neutrophils % Seg Neuts % (Manual) Lymphocytes % (Manual) Monocytes % (Manual) Eosinophils % (Manual) Nucleated RBC % Seg Neutrophils # Seg Neutrophils # Man Lymphocytes # (Manual) Monocytes # (Manual) Eosinophils # (Manual) APTT POC ABG pH ABG pH POC ABG pCO2 POC ABG pO2 ABG pO2 ABG HCO3 ABG O2 Saturation ABG Base Excess ABG Hemoglobin VBG pH Oxyhemoglobin Sodium Potassium Chloride Carbon Dioxide BUN Creatinine Glucose POC Glucose 131 H 177 H 143 H Lactic Acid Calcium Phosphorus Total Bilirubin AST ALT C-Reactive Protein Total Protein Albumin Triglycerides Amylase Lipase Urine WBC (Auto) Vancomycin Trough Crossmatch 01/07/18 01/08/18 01/08/18 22:11 02:26 05:37 WBC RBC Hgb Hct MCV MCH MCHC RDW Plt Count Lymph % (Auto) Eos % (Auto) [place] # Eos # Baso # Seg Neutrophils % Seg Neuts % (Manual) Lymphocytes % (Manual) Monocytes % (Manual) Eosinophils % (Manual) Nucleated RBC % Seg Neutrophils # Seg Neutrophils # Man Lymphocytes # (Manual) Monocytes # (Manual) Eosinophils # (Manual) APTT POC ABG pH ABG pH POC ABG pCO2 POC ABG pO2 ABG pO2 ABG HCO3 ABG O2 Saturation ABG Base Excess ABG Hemoglobin VBG pH Oxyhemoglobin Sodium Potassium Chloride Carbon Dioxide BUN Creatinine Glucose POC Glucose 133 H 194 H 106 H Lactic Acid Calcium Phosphorus Total Bilirubin AST ALT C-Reactive Protein Total Protein Albumin Triglycerides Amylase Lipase Urine WBC (Auto) Vancomycin Trough Crossmatch 01/08/18 01/08/18 01/08/18 09:41 10:45 10:45 WBC 11.6 H RBC 3.21 L Hgb 10.5 L Hct 32.0 L MCV 100 H MCH 33 H MCHC RDW 15.7 H Plt Count Lymph % (Auto) Eos % (Auto) [place] # Eos # Baso # Seg Neutrophils % Seg Neuts % (Manual) Lymphocytes % (Manual) Monocytes % (Manual) Eosinophils % (Manual) Nucleated RBC % Seg Neutrophils # Seg Neutrophils # Man Lymphocytes # (Manual) Monocytes # (Manual) Eosinophils # (Manual) APTT POC ABG pH ABG pH POC ABG pCO2 POC ABG pO2 ABG pO2 ABG HCO3 ABG O2 Saturation ABG Base Excess ABG Hemoglobin VBG pH Oxyhemoglobin Sodium Potassium Chloride 96.4 L Carbon Dioxide BUN Creatinine 0.4 L Glucose 146 H POC Glucose 142 H Lactic Acid Calcium Phosphorus Total Bilirubin AST ALT C-Reactive Protein Total Protein Albumin Triglycerides Amylase Lipase Urine WBC (Auto) Vancomycin Trough Crossmatch 01/08/18 01/08/18 01/08/18 14:31 17:20 21:46 WBC RBC Hgb Hct MCV MCH MCHC RDW Plt Count Lymph % (Auto) Eos % (Auto) [place] # Eos # Baso # Seg Neutrophils % Seg Neuts % (Manual) Lymphocytes % (Manual) Monocytes % (Manual) Eosinophils % (Manual) Nucleated RBC % Seg Neutrophils # Seg Neutrophils # Man Lymphocytes # (Manual) Monocytes # (Manual) Eosinophils # (Manual) APTT POC ABG pH ABG pH POC ABG pCO2 POC ABG pO2 ABG pO2 ABG HCO3 ABG O2 Saturation ABG Base Excess ABG Hemoglobin VBG pH Oxyhemoglobin Sodium Potassium Chloride Carbon Dioxide BUN Creatinine Glucose POC Glucose 158 H 160 H 166 H Lactic Acid Calcium Phosphorus Total Bilirubin AST ALT C-Reactive Protein Total Protein Albumin Triglycerides Amylase Lipase Urine WBC (Auto) Vancomycin Trough Crossmatch 01/09/18 01/09/18 01/09/18 02:01 04:30 04:30 WBC RBC 3.21 L Hgb 10.9 L Hct 31.7 L MCV 99 H MCH 34 H MCHC RDW 15.8 H Plt Count Lymph % (Auto) Eos % (Auto) [place] # Eos # Baso # Seg Neutrophils % Seg Neuts % (Manual) Lymphocytes % (Manual) Monocytes % (Manual) Eosinophils % (Manual) Nucleated RBC % Seg Neutrophils # Seg Neutrophils # Man Lymphocytes # (Manual) Monocytes # (Manual) Eosinophils # (Manual) APTT POC ABG pH ABG pH POC ABG pCO2 POC ABG pO2 ABG pO2 ABG HCO3 ABG O2 Saturation ABG Base Excess ABG Hemoglobin VBG pH Oxyhemoglobin Sodium 135 L Potassium Chloride 93.8 L Carbon Dioxide BUN Creatinine 0.5 L Glucose 137 H POC Glucose 155 H Lactic Acid Calcium Phosphorus Total Bilirubin AST ALT C-Reactive Protein Total Protein Albumin Triglycerides Amylase Lipase Urine WBC (Auto) Vancomycin Trough Crossmatch 01/09/18 01/09/18 01/09/18 05:42 10:41 14:01 WBC RBC Hgb Hct MCV MCH MCHC RDW Plt Count Lymph % (Auto) Eos % (Auto) [place] # Eos # Baso # Seg Neutrophils % Seg Neuts % (Manual) Lymphocytes % (Manual) Monocytes % (Manual) Eosinophils % (Manual) Nucleated RBC % Seg Neutrophils # Seg Neutrophils # Man Lymphocytes # (Manual) Monocytes # (Manual) Eosinophils # (Manual) APTT POC ABG pH ABG pH POC ABG pCO2 POC ABG pO2 ABG pO2 ABG HCO3 ABG O2 Saturation ABG Base Excess ABG Hemoglobin VBG pH Oxyhemoglobin Sodium Potassium Chloride Carbon Dioxide BUN Creatinine Glucose POC Glucose 142 H 187 H 138 H Lactic Acid Calcium Phosphorus Total Bilirubin AST ALT C-Reactive Protein Total Protein Albumin Triglycerides Amylase Lipase Urine WBC (Auto) Vancomycin Trough Crossmatch 01/09/18 01/09/18 01/10/18 18:09 21:09 02:06 WBC RBC Hgb Hct MCV MCH MCHC RDW Plt Count Lymph % (Auto) Eos % (Auto) [place] # Eos # Baso # Seg Neutrophils % Seg Neuts % (Manual) Lymphocytes % (Manual) Monocytes % (Manual) Eosinophils % (Manual) Nucleated RBC % Seg Neutrophils # Seg Neutrophils # Man Lymphocytes # (Manual) Monocytes # (Manual) Eosinophils # (Manual) APTT POC ABG pH ABG pH POC ABG pCO2 POC ABG pO2 ABG pO2 ABG HCO3 ABG O2 Saturation ABG Base Excess ABG Hemoglobin VBG pH Oxyhemoglobin Sodium Potassium Chloride Carbon Dioxide BUN Creatinine Glucose POC Glucose 143 H 188 H 160 H Lactic Acid Calcium Phosphorus Total Bilirubin AST ALT C-Reactive Protein Total Protein Albumin Triglycerides Amylase Lipase Urine WBC (Auto) Vancomycin Trough Crossmatch 01/10/18 01/10/18 01/10/18 05:58 09:54 13:58 WBC RBC Hgb Hct MCV MCH MCHC RDW Plt Count Lymph % (Auto) Eos % (Auto) [place] # Eos # Baso # Seg Neutrophils % Seg Neuts % (Manual) Lymphocytes % (Manual) Monocytes % (Manual) Eosinophils % (Manual) Nucleated RBC % Seg Neutrophils # Seg Neutrophils # Man Lymphocytes # (Manual) Monocytes # (Manual) Eosinophils # (Manual) APTT POC ABG pH ABG pH POC ABG pCO2 POC ABG pO2 ABG pO2 ABG HCO3 ABG O2 Saturation ABG Base Excess ABG Hemoglobin VBG pH Oxyhemoglobin Sodium Potassium Chloride Carbon Dioxide BUN Creatinine Glucose POC Glucose 134 H 162 H 152 H Lactic Acid Calcium Phosphorus Total Bilirubin AST ALT C-Reactive Protein Total Protein Albumin Triglycerides Amylase Lipase Urine WBC (Auto) Vancomycin Trough Crossmatch 01/10/18 01/10/18 01/11/18 16:56 21:57 02:22 WBC RBC Hgb Hct MCV MCH MCHC RDW Plt Count Lymph % (Auto) Eos % (Auto) [place] # Eos # Baso # Seg Neutrophils % Seg Neuts % (Manual) Lymphocytes % (Manual) Monocytes % (Manual) Eosinophils % (Manual) Nucleated RBC % Seg Neutrophils # Seg Neutrophils # Man Lymphocytes # (Manual) Monocytes # (Manual) Eosinophils # (Manual) APTT POC ABG pH ABG pH POC ABG pCO2 POC ABG pO2 ABG pO2 ABG HCO3 ABG O2 Saturation ABG Base Excess ABG Hemoglobin VBG pH Oxyhemoglobin Sodium Potassium Chloride Carbon Dioxide BUN Creatinine Glucose POC Glucose 161 H 161 H 159 H Lactic Acid Calcium Phosphorus Total Bilirubin AST ALT C-Reactive Protein Total Protein Albumin Triglycerides Amylase Lipase Urine WBC (Auto) Vancomycin Trough Crossmatch
[2018-01-11 11:26] LABS: Hematocrit 34.8 % (35.5-45.6); Hemoglobin 11.5 gm/dl (11.8-15.2); Mean Corpuscular HGB Conc 33 % (32-34); Mean Corpuscular Hemoglobin 33 pg (28-32); Mean Corpuscular Volume 99 fl (84-94); Platelet Count 375 K/mm3 (140-440); Red Cell Distribution Width 15.2 % (13.2-15.2)
[2018-01-11 11:46] LABS: BUN/Creatinine Ratio 28; Blood Urea Nitrogen 11 mg/dL (9-20); Calcium 9.9 mg/dL (8.4-10.2); Hemolysis Index 0
[2018-01-11] MEDS: SODIUM CHLORIDE FLUSH SYRINGE 10 ML IV SCH ×2 (12:03→22:32)
[2018-01-11] MEDS: LOVENOX SUB-Q SCH (22:31)
[2018-01-12] MEDS: LIBRIUM PO SCH ×4 (00:01→18:36)
[2018-01-12] MEDS: HumaLOG SUB-Q SCH ×6 (03:10→22:15)
[2018-01-12] MEDS: DUONEB *Not for PRN Use IH SCH ×3 (08:21→19:34)
--- NOTE | 2018-01-12 09:08 | Progress Note ---
Assessment and Plan Assessment and plan: Acute hypoxic hypercapnic respiratory failure : Still intubated, on ventilator Vent dependent, unable to wean Continue Vent support, pulmonary following Considering tracheostomy and PEG. has not decided yet. Says she has to talk to family Anemia; s/p 1 Unit PRBC this admission. Hemoglobin 11.5 yesterday Sepsis Off antibiotics ,s/p Zyvox, Ccefepime and Flagyl, ID following Aspiration pneumonia. Completed Antibiotics ARDS. Still on vent Alcohol abuse: Continue thiamine, Librium as needed Thrombocytopenia, resolved. Plt count normal Moderate to Severe protein calorie malnutrition; nutrition supplements, tube feeding. Hypotension resolved. Off Levophed Diabetes mellitus type 2. On Lantus and sliding scale. DVT prophylaxis: Lovenox and SCDs Still unable to wean off Vent History Interval history: Patient still intubated, Still on ventilator, no fever Hospitalist Physical - Physical exam Narrative exam: Gen appearance: Not in acute distress, lying in bed, Obese,intubated HEENT:Normocephalic, atraumatic Neck:supple, no JVD Lungs: Clear to auscultation bilaterally, no crackles , no wheeze Heart: S1 and S2 regular, no murmurs, rubs or gallop Abdomen: soft, non tender, non distended, normal bowel sounds, Ext: No edema, no clubbing, no cyanosis. Neuro: Intubated, sedated, - Constitutional Vitals: Temp Pulse Resp BP Pulse Ox 98.7 F 92 H 17 120/84 97 01/12/18 08:00 01/12/18 08:31 01/12/18 08:31 01/12/18 08:31 01/12/18 08:31 General appearance: Present: obese, other (intubated on vent) Results - Labs CBC & Chem 7: 01/11/18 11:21 01/11/18 11:21 Labs: Laboratory Last Values WBC 12.7 K/mm3 (4.5-11.0) H 01/11/18 11:21 RBC 3.50 M/mm3 (3.65-5.03) L 01/11/18 11:21 Hgb 11.5 gm/dl (11.8-15.2) L 01/11/18 11:21 Hct 34.8 % (35.5-45.6) L 01/11/18 11:21 MCV 99 fl (84-94) H 01/11/18 11:21 MCH 33 pg (28-32) H 01/11/18 11:21 MCHC 33 % (32-34) 01/11/18 11:21 RDW 15.2 % (13.2-15.2) 01/11/18 11:21 Plt Count 375 K/mm3 (140-440) 01/11/18 11:21 Lymph % (Auto) 18.5 % (13.4-35.0) 01/02/18 04:10 [place] % (Auto) 7.1 % (0.0-7.3) 01/02/18 04:10 Eos % (Auto) 5.5 % (0.0-4.3) H 01/02/18 04:10 Baso % (Auto) 0.3 % (0.0-1.8) 01/02/18 04:10 Lymph # 2.2 K/mm3 (1.2-5.4) 01/02/18 04:10 [place] # 0.9 K/mm3 (0.0-0.8) H 01/02/18 04:10 Eos # 0.7 K/mm3 (0.0-0.4) H 01/02/18 04:10 Baso # 0.0 K/mm3 (0.0-0.1) 01/02/18 04:10 Add Manual Diff Complete 01/06/18 05:30 Total Counted 100 01/06/18 05:30 Seg Neutrophils % 68.6 % (40.0-70.0) 01/02/18 04:10 Seg Neuts % (Manual) 72.0 % (40.0-70.0) H 01/06/18 05:30 Band Neutrophils % 0 % 01/06/18 05:30 Lymphocytes % (Manual) 17.0 % (13.4-35.0) 01/06/18 05:30 Reactive Lymphs % (Man) 0 % 01/06/18 05:30 Monocytes % (Manual) 9.0 % (0.0-7.3) H 01/06/18 05:30 Eosinophils % (Manual) 2.0 % (0.0-4.3) 01/06/18 05:30 Basophils % (Manual) 0 % (0.0-1.8) 01/06/18 05:30 Metamyelocytes % 0 % 01/06/18 05:30 Myelocytes % 0 % 01/06/18 05:30 Promyelocytes % 0 % 01/06/18 05:30 Blast Cells % 0 % 01/06/18 05:30 Nucleated RBC % 1.0 % (0.0-0.9) H 01/06/18 05:30 Seg Neutrophils # 8.3 K/mm3 (1.8-7.7) H 01/02/18 04:10 Seg Neutrophils # Man 9.1 K/mm3 (1.8-7.7) H 01/06/18 05:30 Band Neutrophils # 0.0 K/mm3 01/06/18 05:30 Lymphocytes # (Manual) 2.1 K/mm3 (1.2-5.4) 01/06/18 05:30 Abs React Lymphs (Man) 0.0 K/mm3 01/06/18 05:30 Monocytes # (Manual) 1.1 K/mm3 (0.0-0.8) H 01/06/18 05:30 Eosinophils # (Manual) 0.3 K/mm3 (0.0-0.4) 01/06/18 05:30 Basophils # (Manual) 0.0 K/mm3 (0.0-0.1) 01/06/18 05:30 Metamyelocytes # 0.0 K/mm3 01/06/18 05:30 Myelocytes # 0.0 K/mm3 01/06/18 05:30 Promyelocytes # 0.0 K/mm3 01/06/18 05:30 Blast Cells # 0.0 K/mm3 01/06/18 05:30 Pathologist Review 12/23/17 09:25 WBC Morphology Not Reportable 01/06/18 05:30 Hypersegmented Neuts Not Reportable 01/06/18 05:30 Hyposegmented Neuts Not Reportable 01/06/18 05:30 Hypogranular Neuts Not Reportable 01/06/18 05:30 Smudge Cells Not Reportable 01/06/18 05:30 Toxic Granulation Not Reportable 01/06/18 05:30 Toxic Vacuolation Not Reportable 01/06/18 05:30 Dohle Bodies Not Reportable 01/06/18 05:30 Pelger-Huet Anomaly Not Reportable 01/06/18 05:30 Mary Rods Not Reportable 01/06/18 05:30 Platelet Estimate Appears normal 01/06/18 05:30 Clumped Platelets Not Reportable 01/06/18 05:30 Plt Clumps, EDTA Not Reportable 01/06/18 05:30 Large Platelets Not Reportable 01/06/18 05:30 Giant Platelets Not Reportable 01/06/18 05:30 Platelet Satelliting Not Reportable 01/06/18 05:30 Plt Morphology Comment Not Reportable 01/06/18 05:30 RBC Morphology Not Reportable 01/06/18 05:30 Dimorphic RBCs Not Reportable 01/06/18 05:30 Polychromasia 1+ 01/06/18 05:30 Hypochromasia Not Reportable 01/06/18 05:30 Poikilocytosis Not Reportable 01/06/18 05:30 Anisocytosis 1+ 01/06/18 05:30 Microcytosis Not Reportable 01/06/18 05:30 Macrocytosis Few 01/06/18 05:30 Spherocytes Not Reportable 01/06/18 05:30 Pappenheimer Bodies Not Reportable 01/06/18 05:30 Sickle Cells Not Reportable 01/06/18 05:30 Target Cells Not Reportable 01/06/18 05:30 Tear Drop Cells Not Reportable 01/06/18 05:30 Ovalocytes Not Reportable 01/06/18 05:30 Stomatocytes 1+ 01/06/18 05:30 Helmet Cells Not Reportable 01/06/18 05:30 [place]oss Bodies Not Reportable 01/06/18 05:30 [place] Rings Not Reportable 01/06/18 05:30 Chidi Cells Not Reportable 01/06/18 05:30 Bite Cells Not Reportable 01/06/18 05:30 Crenated Cell Not Reportable 01/06/18 05:30 Elliptocytes Not Reportable 01/06/18 05:30 Acanthocytes (Spur) Not Reportable 01/06/18 05:30 Rouleaux Not Reportable 01/06/18 05:30 Hemoglobin C Crystals Not Reportable 01/06/18 05:30 Schistocytes Not Reportable 01/06/18 05:30 Malaria parasites Not Reportable 01/06/18 05:30 Vipul Bodies Not Reportable 01/06/18 05:30 Hem Pathologist Commnt No 01/06/18 05:30 PT 14.9 Sec. (12.2-14.9) 12/15/17 04:05 INR 1.11 (0.87-1.13) 12/15/17 04:05 APTT 20.9 Sec. (24.2-36.6) L 12/15/17 04:05 POC ABG pH 7.503 (7.35-7.45) H 12/25/17 03:38 ABG pH 7.441 pH Units (7.350-7.450) 01/06/18 03:14 POC ABG pCO2 35.8 (35-45) 12/25/17 03:38 ABG pCO2 43.2 mm Hg 01/06/18 03:14 POC ABG pO2 66 (80-105) L 12/25/17 03:38 ABG pO2 84.9 mm Hg (80.0-90.0) 01/06/18 03:14 POC ABG HCO3 28.1 12/25/17 03:38 ABG HCO3 28.8 mmol/L (20.0-26.0) H 01/06/18 03:14 POC ABG Total CO2 29 12/25/17 03:38 POC ABG O2 Sat 95 12/25/17 03:38 ABG O2 Saturation 97.0 % (95.0-99.0) 01/06/18 03:14 ABG O2 Content 12.6 (0.0-44) 01/06/18 03:14 POC ABG Base Excess 5 12/25/17 03:38 ABG Base Excess 4.2 mmol/L (-2.0-3.0) H 01/06/18 03:14 ABG Hemoglobin 9.3 gm/dl (14.0-18.0) L 01/06/18 03:14 ABG Carboxyhemoglobin 2.0 % (0.0-5.0) 01/06/18 03:14 ABG Methemoglobin 0.4 % (0.0-1.5) 01/06/18 03:14 VBG pH 7.472 (7.320-7.420) H 12/12/17 19:18 Oxyhemoglobin 94.7 % (95.0-99.0) L 01/06/18 03:14 FiO2 30 % 01/06/18 03:14 Sodium 133 mmol/L (137-145) L 01/11/18 11:21 Potassium 3.9 mmol/L (3.6-5.0) 01/11/18 11:21 Chloride 92.9 mmol/L (98-107) L 01/11/18 11:21 Carbon Dioxide 26 mmol/L (22-30) 01/11/18 11:21 Anion Gap 18 mmol/L 01/11/18 11:21 BUN 11 mg/dL (9-20) 01/11/18 11:21 Creatinine 0.4 mg/dL (0.8-1.5) L 01/11/18 11:21 Estimated GFR > 60 ml/min 01/11/18 11:21 BUN/Creatinine Ratio 28 % 01/11/18 11:21 Glucose 156 mg/dL (75-100) H 01/11/18 11:21 POC Glucose 165 (70-105) H 01/12/18 05:50 Lactic Acid 2.00 mmol/L (0.7-2.0) 12/13/17 19:38 Calcium 9.9 mg/dL (8.4-10.2) 01/11/18 11:21 Phosphorus 3.90 mg/dL (2.5-4.5) 01/11/18 11:21 Magnesium 1.70 mg/dL (1.7-2.3) 01/11/18 11:21 Total Bilirubin 0.40 mg/dL (0.1-1.2) 01/06/18 05:30 AST 30 units/L (5-40) 01/06/18 05:30 ALT 42 units/L (7-56) 01/06/18 05:30 Alkaline Phosphatase 74 units/L (35-129) 01/06/18 05:30 C-Reactive Protein 7.10 mg/dL (0.00-1.30) H 12/20/17 13:40 NT-Pro-B Natriuret Pep 409.9 pg/mL (0-450) 12/12/17 19:02 Total Protein 7.5 g/dL (6.3-8.2) 01/06/18 05:30 Albumin 3.1 g/dL (3.9-5) L 01/06/18 05:30 Albumin/Globulin Ratio 0.7 % 01/06/18 05:30 Triglycerides 1042 mg/dL (2-149) H 12/20/17 13:40 Amylase 20 units/L (27-131) L 12/13/17 13:47 Lipase 9 units/L (13-60) L 12/13/17 13:47 Urine Color [place] (Yellow) 12/15/17 17:00 Urine Turbidity Hazy (Clear) 12/15/17 17:00 Urine pH 6.0 (5.0-7.0) 12/15/17 17:00 Ur Specific [place] 1.027 (1.003-1.030) 12/15/17 17:00 Urine Protein 30 mg/dl mg/dL (Negative) 12/15/17 17:00 Urine Glucose (UA) Neg mg/dL (Negative) 12/15/17 17:00 Urine Ketones Tr mg/dL (Negative) 12/15/17 17:00 Urine Blood Lg (Negative) 12/15/17 17:00 Urine Nitrite Neg (Negative) 12/15/17 17:00 Urine Bilirubin Neg (Negative) 12/15/17 17:00 Urine Ictotest Positive (Negative) 12/12/17 20:42 Urine Urobilinogen < 2.0 mg/dL (<2.0) 12/15/17 17:00 Ur Leukocyte Esterase Tr (Negative) 12/15/17 17:00 Urine WBC (Auto) 38.0 /HPF (0.0-6.0) H 12/15/17 17:00 Urine RBC (Auto) 65.0 /HPF (0.0-6.0) 12/15/17 17:00 U Epithel Cells (Auto) < 1.0 /HPF (0-13.0) 12/12/17 20:42 Urine Bacteria (Auto) 1+ /HPF (Negative) 12/15/17 17:00 Urine Mucus 1+ /HPF 12/12/17 20:42 Vancomycin Trough 22.5 ug/mL (5.0-20.0) H 12/25/17 12:58 JERMAIN Screen Negative (Negative) 12/18/17 16:44 Proteinase 3 (PR3) Ab <1.0 AI (<1.0) 12/18/17 16:33 Myeloperoxidase Ab <1.0 AI (<1.0) 12/18/17 16:33 Complement C3 113 mg/dL (82-185) 12/18/17 16:33 Complement C4 15 mg/dL (15-53) 12/18/17 16:33 Hepatitis A IgM Ab Non-reactive (NonReactive) 12/20/17 13:40 Hep Bs Antigen Non-reactive (Negative) 12/20/17 13:40 Hep B Core IgM Ab Non-reactive (NonReactive) 12/20/17 13:40 Hepatitis C Antibody Non-reactive (NonReactive) 12/20/17 13:40 HIV 1&2 Antibody Rapid Non react (Non React) 12/20/17 13:40 HIV P24 Antigen Non react (Non React) 12/20/17 13:40 Influenza A (Rapid) Negative (Negative) 12/12/17 22:00 Influenza B (Rapid) Negative (Negative) 12/12/17 22:00 Urine Legionella Ag Not detected (Not Detected) 12/14/17 16:15 Miscellaneous Test Flexitest 1 12/14/17 16:15 Blood Type O POSITIVE 12/31/17 09:25 Antibody Screen Negative 12/31/17 09:25 Crossmatch See Detail 12/31/17 09:25
--- NOTE | 2018-01-12 09:34 | Progress Note ---
Assessment and Plan 47 y/o male with acute respiratory failure thought secondary to H. Flu now with H. Flu bacteremia, sepsis and persistent fevers. 1. Acute respiratory failure. Patient re-intubated 12/28. Today makes 2 weeks of his second intubation. I have had several discussions with the about the importance and need of the trach. Once the idea of needing a feeding tube was placed she has been hesistant about proceeding. I have missed her the last 2 mornings but she has not expressed any answers for proceeding. The surgeons, myself as well as others have spoken to her about the need for trach to help with weaning and the possible side effects of leaving the tube in for prolonged periods of time. We will continue to voice our concern and overall expert medical opinion. 2. Repeat CXR in the am 3. Suggest checking labs in the AM 4. Follow up any new ID recs 5. Overall prognosis is guarded to poor. Subjective Date of service: 01/12/18 Principal diagnosis: ARDS,Respiratory failure,pneumonia Interval history: No acute events. Currently on PSV 15 over 5. No family at bedside. patient is always tachypnic. Objective Vital Signs - 12hr 01/11/18 01/11/18 01/11/18 21:31 22:00 22:01 Temperature Pulse Rate 104 H 85 105 H Pulse Rate [ Anterior Bilateral Throughout] Pulse Rate [ From Monitor] Respiratory 22 28 H Rate Respiratory Rate [Anterior Bilateral Throughout] Blood Pressure 130/86 134/86 O2 Sat by Pulse 99 100 Oximetry 01/11/18 01/11/18 01/11/18 22:31 23:00 23:31 Temperature Pulse Rate 101 H 99 H 94 H Pulse Rate [ Anterior Bilateral Throughout] Pulse Rate [ From Monitor] Respiratory 31 H 24 19 Rate Respiratory Rate [Anterior Bilateral Throughout] Blood Pressure 134/86 143/98 143/98 O2 Sat by Pulse 100 99 100 Oximetry 01/11/18 01/12/18 01/12/18 23:38 00:00 00:01 Temperature 98.4 F Pulse Rate 90 Pulse Rate [ Anterior Bilateral Throughout] Pulse Rate [ 90 From Monitor] Respiratory 24 29 H Rate Respiratory Rate [Anterior Bilateral Throughout] Blood Pressure 128/97 O2 Sat by Pulse 100 99 Oximetry 01/12/18 01/12/18 01/12/18 00:06 00:31 01:00 Temperature Pulse Rate 93 H 87 86 Pulse Rate [ Anterior Bilateral Throughout] Pulse Rate [ From Monitor] Respiratory 12 21 Rate Respiratory Rate [Anterior Bilateral Throughout] Blood Pressure 143/98 128/97 131/95 O2 Sat by Pulse 98 98 100 Oximetry 01/12/18 01/12/18 01/12/18 01:31 02:00 02:31 Temperature Pulse Rate 86 85 89 Pulse Rate [ Anterior Bilateral Throughout] Pulse Rate [ From Monitor] Respiratory 18 16 22 Rate Respiratory Rate [Anterior Bilateral Throughout] Blood Pressure 131/95 138/93 138/93 O2 Sat by Pulse 100 100 100 Oximetry 01/12/18 01/12/18 01/12/18 03:00 03:31 04:00 Temperature 98.6 F Pulse Rate 91 H 89 90 Pulse Rate [ Anterior Bilateral Throughout] Pulse Rate [ 88 From Monitor] Respiratory 20 18 18 Rate Respiratory Rate [Anterior Bilateral Throughout] Blood Pressure 114/83 114/83 121/87 O2 Sat by Pulse 100 96 100 Oximetry 01/12/18 01/12/18 01/12/18 04:31 05:00 05:24 Temperature Pulse Rate 88 89 87 Pulse Rate [ Anterior Bilateral Throughout] Pulse Rate [ From Monitor] Respiratory 18 18 Rate Respiratory Rate [Anterior Bilateral Throughout] Blood Pressure 121/87 122/97 121/87 O2 Sat by Pulse 100 100 100 Oximetry 01/12/18 01/12/18 01/12/18 05:31 06:00 06:31 Temperature Pulse Rate 88 92 H 90 Pulse Rate [ Anterior Bilateral Throughout] Pulse Rate [ From Monitor] Respiratory 18 18 18 Rate Respiratory Rate [Anterior Bilateral Throughout] Blood Pressure 121/87 120/88 120/88 O2 Sat by Pulse 100 100 99 Oximetry 01/12/18 01/12/18 01/12/18 07:00 07:31 08:00 Temperature 98.7 F Pulse Rate 91 H 94 H 96 H Pulse Rate [ Anterior Bilateral Throughout] Pulse Rate [ 78 From Monitor] Respiratory 18 18 18 Rate Respiratory Rate [Anterior Bilateral Throughout] Blood Pressure 130/85 130/85 120/84 O2 Sat by Pulse 98 98 100 Oximetry 01/12/18 01/12/18 01/12/18 08:22 08:30 08:31 Temperature Pulse Rate 92 H Pulse Rate [ 92 H 100 H Anterior Bilateral Throughout] Pulse Rate [ From Monitor] Respiratory 17 Rate Respiratory 18 22 Rate [Anterior Bilateral Throughout] Blood Pressure 120/84 O2 Sat by Pulse 97 Oximetry Constitutional: no acute distress, alert, asleep Eyes: non-icteric ENT: oropharynx moist, other (ETT at 24. ) Neck: no JVD Effort: normal Ascultation: Right: rales, Bilateral: clear, diminished breath sounds, wheezes ( mild), rhonchi (sporadic), other (coarse BS bilaterally) Percussion: Bilateral: not dull Tactile fremitus: Bilateral: normal Cardiovascular: regular rate and rhythm Gastrointestinal: hypoactive bowel sounds, non-tender, other (abdominal obesity) Integumentary: normal Extremities: no cyanosis, no ischemia or petechiae Neurologic: non-focal exam, pupils equal and round, CN II-XII normal Psychiatric: mood appropriate CBC and BMP: 01/11/18 11:21 01/11/18 11:21 ABG, PT/INR, D-dimer: ABG POC ABG pH 7.503 (7.35-7.45) H 12/25/17 03:38 ABG pH 7.441 pH Units (7.350-7.450) 01/06/18 03:14 POC ABG pCO2 35.8 (35-45) 12/25/17 03:38 ABG pCO2 43.2 mm Hg 01/06/18 03:14 POC ABG pO2 66 (80-105) L 12/25/17 03:38 ABG pO2 84.9 mm Hg (80.0-90.0) 01/06/18 03:14 POC ABG HCO3 28.1 12/25/17 03:38 POC ABG Total CO2 29 12/25/17 03:38 POC ABG O2 Sat 95 12/25/17 03:38 ABG O2 Saturation 97.0 % (95.0-99.0) 01/06/18 03:14 PT/INR, D-dimer PT 14.9 Sec. (12.2-14.9) 12/15/17 04:05 INR 1.11 (0.87-1.13) 12/15/17 04:05 Abnormal lab findings: Abnormal Labs 12/12/17 12/12/17 12/12/17 18:57 19:02 19:02 WBC RBC Hgb Hct MCV 96 H MCH 34 H MCHC 35 H RDW Plt Count 46 L Lymph % (Auto) Eos % (Auto) [place] # Eos # Baso # Seg Neutrophils % Seg Neuts % (Manual) 77.0 H Lymphocytes % (Manual) 13.0 L Monocytes % (Manual) Eosinophils % (Manual) Nucleated RBC % Seg Neutrophils # Seg Neutrophils # Man Lymphocytes # (Manual) 0.9 L Monocytes # (Manual) Eosinophils # (Manual) APTT POC ABG pH ABG pH POC ABG pCO2 POC ABG pO2 ABG pO2 ABG HCO3 ABG O2 Saturation ABG Base Excess ABG Hemoglobin VBG pH Oxyhemoglobin Sodium Potassium Chloride Carbon Dioxide BUN Creatinine Glucose POC Glucose 321 H Lactic Acid 4.00 H* Calcium Phosphorus Total Bilirubin AST ALT C-Reactive Protein Total Protein Albumin Triglycerides Amylase Lipase Urine WBC (Auto) Vancomycin Trough Crossmatch 12/12/17 12/12/17 12/12/17 19:02 19:18 20:55 WBC RBC Hgb Hct MCV MCH MCHC RDW Plt Count Lymph % (Auto) Eos % (Auto) [place] # Eos # Baso # Seg Neutrophils % Seg Neuts % (Manual) Lymphocytes % (Manual) Monocytes % (Manual) Eosinophils % (Manual) Nucleated RBC % Seg Neutrophils # Seg Neutrophils # Man Lymphocytes # (Manual) Monocytes # (Manual) Eosinophils # (Manual) APTT POC ABG pH ABG pH POC ABG pCO2 POC ABG pO2 ABG pO2 ABG HCO3 ABG O2 Saturation ABG Base Excess ABG Hemoglobin VBG pH 7.472 H Oxyhemoglobin Sodium 124 L Potassium Chloride 80.0 L Carbon Dioxide 20 L BUN Creatinine Glucose 382 H POC Glucose 283 H Lactic Acid Calcium 8.1 L Phosphorus Total Bilirubin 4.60 H AST 93 H ALT 112 H C-Reactive Protein Total Protein Albumin 2.5 L Triglycerides Amylase Lipase Urine WBC (Auto) Vancomycin Trough Crossmatch 12/12/17 12/13/17 12/13/17 21:41 00:45 01:29 WBC RBC Hgb Hct MCV MCH MCHC RDW Plt Count Lymph % (Auto) Eos % (Auto) [place] # Eos # Baso # Seg Neutrophils % Seg Neuts % (Manual) Lymphocytes % (Manual) Monocytes % (Manual) Eosinophils % (Manual) Nucleated RBC % Seg Neutrophils # Seg Neutrophils # Man Lymphocytes # (Manual) Monocytes # (Manual) Eosinophils # (Manual) APTT POC ABG pH ABG pH POC ABG pCO2 POC ABG pO2 ABG pO2 ABG HCO3 ABG O2 Saturation ABG Base Excess ABG Hemoglobin VBG pH Oxyhemoglobin Sodium Potassium Chloride Carbon Dioxide BUN Creatinine Glucose POC Glucose Lactic Acid 4.20 H* 2.70 H* 3.30 H* Calcium Phosphorus Total Bilirubin AST ALT C-Reactive Protein Total Protein Albumin Triglycerides Amylase Lipase Urine WBC (Auto) Vancomycin Trough Crossmatch 12/13/17 12/13/17 12/13/17 02:19 03:44 05:58 WBC RBC Hgb Hct MCV 97 H MCH 34 H MCHC 35 H RDW Plt Count 41 L Lymph % (Auto) Eos % (Auto) [place] # Eos # Baso # Seg Neutrophils % Seg Neuts % (Manual) Lymphocytes % (Manual) 8.0 L Monocytes % (Manual) 8.0 H Eosinophils % (Manual) Nucleated RBC % Seg Neutrophils # Seg Neutrophils # Man Lymphocytes # (Manual) 0.6 L Monocytes # (Manual) Eosinophils # (Manual) APTT POC ABG pH 7.334 L ABG pH POC ABG pCO2 POC ABG pO2 43 L ABG pO2 ABG HCO3 ABG O2 Saturation ABG Base Excess ABG Hemoglobin VBG pH Oxyhemoglobin Sodium Potassium Chloride Carbon Dioxide BUN Creatinine Glucose POC Glucose Lactic Acid 2.60 H* Calcium Phosphorus Total Bilirubin AST ALT C-Reactive Protein Total Protein Albumin Triglycerides Amylase Lipase Urine WBC (Auto) Vancomycin Trough Crossmatch 12/13/17 12/13/17 12/13/17 05:58 05:58 05:58 WBC RBC Hgb Hct MCV MCH MCHC RDW Plt Count Lymph % (Auto) Eos % (Auto) [place] # Eos # Baso # Seg Neutrophils % Seg Neuts % (Manual) Lymphocytes % (Manual) Monocytes % (Manual) Eosinophils % (Manual) Nucleated RBC % Seg Neutrophils # Seg Neutrophils # Man Lymphocytes # (Manual) Monocytes # (Manual) Eosinophils # (Manual) APTT POC ABG pH ABG pH POC ABG pCO2 POC ABG pO2 ABG pO2 ABG HCO3 ABG O2 Saturation ABG Base Excess ABG Hemoglobin VBG pH Oxyhemoglobin Sodium 132 L D Potassium Chloride 90.0 L Carbon Dioxide 20 L BUN Creatinine Glucose 346 H POC Glucose 298 H Lactic Acid 4.50 H* Calcium 8.2 L Phosphorus Total Bilirubin AST ALT C-Reactive Protein Total Protein Albumin Triglycerides Amylase Lipase Urine WBC (Auto) Vancomycin Trough Crossmatch 12/13/17 12/13/17 12/13/17 06:27 09:42 11:47 WBC RBC Hgb Hct MCV MCH MCHC RDW Plt Count Lymph % (Auto) Eos % (Auto) [place] # Eos # Baso # Seg Neutrophils % Seg Neuts % (Manual) Lymphocytes % (Manual) Monocytes % (Manual) Eosinophils % (Manual) Nucleated RBC % Seg Neutrophils # Seg Neutrophils # Man Lymphocytes # (Manual) Monocytes # (Manual) Eosinophils # (Manual) APTT POC ABG pH 7.267 L 7.298 L ABG pH POC ABG pCO2 50.4 H 51.3 H POC ABG pO2 47 L 43 L ABG pO2 ABG HCO3 ABG O2 Saturation ABG Base Excess ABG Hemoglobin VBG pH Oxyhemoglobin Sodium Potassium Chloride Carbon Dioxide BUN Creatinine Glucose POC Glucose 376 H Lactic Acid Calcium Phosphorus Total Bilirubin AST ALT C-Reactive Protein Total Protein Albumin Triglycerides Amylase Lipase Urine WBC (Auto) Vancomycin Trough Crossmatch 12/13/17 12/13/17 12/13/17 12:03 13:47 13:47 WBC RBC Hgb Hct MCV MCH MCHC RDW Plt Count Lymph % (Auto) Eos % (Auto) [place] # Eos # Baso # Seg Neutrophils % Seg Neuts % (Manual) Lymphocytes % (Manual) Monocytes % (Manual) Eosinophils % (Manual) Nucleated RBC % Seg Neutrophils # Seg Neutrophils # Man Lymphocytes # (Manual) Monocytes # (Manual) Eosinophils # (Manual) APTT POC ABG pH 7.264 L ABG pH POC ABG pCO2 54.9 H POC ABG pO2 55 L ABG pO2 ABG HCO3 ABG O2 Saturation ABG Base Excess ABG Hemoglobin VBG pH Oxyhemoglobin Sodium Potassium Chloride Carbon Dioxide BUN Creatinine Glucose POC Glucose Lactic Acid 2.80 H* Calcium Phosphorus Total Bilirubin AST ALT C-Reactive Protein Total Protein Albumin Triglycerides Amylase 20 L Lipase 9 L Urine WBC (Auto) Vancomycin Trough Crossmatch 12/13/17 12/13/17 12/13/17 15:36 17:39 21:47 WBC RBC Hgb Hct MCV MCH MCHC RDW Plt Count Lymph % (Auto) Eos % (Auto) [place] # Eos # Baso # Seg Neutrophils % Seg Neuts % (Manual) Lymphocytes % (Manual) Monocytes % (Manual) Eosinophils % (Manual) Nucleated RBC % Seg Neutrophils # Seg Neutrophils # Man Lymphocytes # (Manual) Monocytes # (Manual) Eosinophils # (Manual) APTT POC ABG pH 7.229 L 7.225 L ABG pH POC ABG pCO2 60.9 H 66.3 H POC ABG pO2 42 L 41 L ABG pO2 ABG HCO3 ABG O2 Saturation ABG Base Excess ABG Hemoglobin VBG pH Oxyhemoglobin Sodium Potassium Chloride Carbon Dioxide BUN Creatinine Glucose POC Glucose 289 H Lactic Acid Calcium Phosphorus Total Bilirubin AST ALT C-Reactive Protein Total Protein Albumin Triglycerides Amylase Lipase Urine WBC (Auto) Vancomycin Trough Crossmatch 12/13/17 12/14/17 12/14/17 22:19 02:03 05:16 WBC RBC Hgb Hct MCV MCH MCHC RDW Plt Count Lymph % (Auto) Eos % (Auto) [place] # Eos # Baso # Seg Neutrophils % Seg Neuts % (Manual) Lymphocytes % (Manual) Monocytes % (Manual) Eosinophils % (Manual) Nucleated RBC % Seg Neutrophils # Seg Neutrophils # Man Lymphocytes # (Manual) Monocytes # (Manual) Eosinophils # (Manual) APTT POC ABG pH 7.247 L ABG pH POC ABG pCO2 61.2 H POC ABG pO2 53 L ABG pO2 ABG HCO3 ABG O2 Saturation ABG Base Excess ABG Hemoglobin VBG pH Oxyhemoglobin Sodium Potassium Chloride Carbon Dioxide BUN Creatinine Glucose POC Glucose 274 H 295 H Lactic Acid Calcium Phosphorus Total Bilirubin AST ALT C-Reactive Protein Total Protein Albumin Triglycerides Amylase Lipase Urine WBC (Auto) Vancomycin Trough Crossmatch 12/14/17 12/14/17 12/14/17 05:32 12:04 16:22 WBC RBC Hgb Hct MCV MCH MCHC RDW Plt Count Lymph % (Auto) Eos % (Auto) [place] # Eos # Baso # Seg Neutrophils % Seg Neuts % (Manual) Lymphocytes % (Manual) Monocytes % (Manual) Eosinophils % (Manual) Nucleated RBC % Seg Neutrophils # Seg Neutrophils # Man Lymphocytes # (Manual) Monocytes # (Manual) Eosinophils # (Manual) APTT POC ABG pH ABG pH POC ABG pCO2 POC ABG pO2 ABG pO2 ABG HCO3 ABG O2 Saturation ABG Base Excess ABG Hemoglobin VBG pH Oxyhemoglobin Sodium Potassium Chloride Carbon Dioxide BUN Creatinine Glucose POC Glucose 230 H 241 H 231 H Lactic Acid Calcium Phosphorus Total Bilirubin AST ALT C-Reactive Protein Total Protein Albumin Triglycerides Amylase Lipase Urine WBC (Auto) Vancomycin Trough Crossmatch 12/14/17 12/15/17 12/15/17 21:29 02:29 03:25 WBC RBC Hgb Hct MCV MCH MCHC RDW Plt Count Lymph % (Auto) Eos % (Auto) [place] # Eos # Baso # Seg Neutrophils % Seg Neuts % (Manual) Lymphocytes % (Manual) Monocytes % (Manual) Eosinophils % (Manual) Nucleated RBC % Seg Neutrophils # Seg Neutrophils # Man Lymphocytes # (Manual) Monocytes # (Manual) Eosinophils # (Manual) APTT POC ABG pH 7.330 L ABG pH POC ABG pCO2 55.3 H POC ABG pO2 59 L ABG pO2 ABG HCO3 ABG O2 Saturation ABG Base Excess ABG Hemoglobin VBG pH Oxyhemoglobin Sodium Potassium Chloride Carbon Dioxide BUN Creatinine Glucose POC Glucose 258 H 246 H Lactic Acid Calcium Phosphorus Total Bilirubin AST ALT C-Reactive Protein Total Protein Albumin Triglycerides Amylase Lipase Urine WBC (Auto) Vancomycin Trough Crossmatch 12/15/17 12/15/17 12/15/17 04:05 04:05 04:05 WBC 15.0 H RBC 3.40 L Hgb 11.3 L D Hct 33.8 L D MCV 100 H MCH 33 H MCHC RDW Plt Count 48 L Lymph % (Auto) Eos % (Auto) [place] # Eos # Baso # Seg Neutrophils % Seg Neuts % (Manual) Lymphocytes % (Manual) 3.0 L Monocytes % (Manual) Eosinophils % (Manual) Nucleated RBC % 2.0 H Seg Neutrophils # Seg Neutrophils # Man Lymphocytes # (Manual) 0.5 L Monocytes # (Manual) 0.9 H Eosinophils # (Manual) APTT 20.9 L POC ABG pH ABG pH POC ABG pCO2 POC ABG pO2 ABG pO2 ABG HCO3 ABG O2 Saturation ABG Base Excess ABG Hemoglobin VBG pH Oxyhemoglobin Sodium Potassium Chloride Carbon Dioxide BUN 27 H Creatinine Glucose 258 H POC Glucose Lactic Acid Calcium 8.1 L Phosphorus Total Bilirubin AST ALT C-Reactive Protein Total Protein Albumin Triglycerides Amylase Lipase Urine WBC (Auto) Vancomycin Trough Crossmatch 12/15/17 12/15/17 12/15/17 05:32 11:17 14:59 WBC RBC Hgb Hct MCV MCH MCHC RDW Plt Count Lymph % (Auto) Eos % (Auto) [place] # Eos # Baso # Seg Neutrophils % Seg Neuts % (Manual) Lymphocytes % (Manual) Monocytes % (Manual) Eosinophils % (Manual) Nucleated RBC % Seg Neutrophils # Seg Neutrophils # Man Lymphocytes # (Manual) Monocytes # (Manual) Eosinophils # (Manual) APTT POC ABG pH ABG pH POC ABG pCO2 POC ABG pO2 ABG pO2 ABG HCO3 ABG O2 Saturation ABG Base Excess ABG Hemoglobin VBG pH Oxyhemoglobin Sodium Potassium Chloride Carbon Dioxide BUN Creatinine Glucose POC Glucose 247 H 268 H 233 H Lactic Acid Calcium Phosphorus Total Bilirubin AST ALT C-Reactive Protein Total Protein Albumin Triglycerides Amylase Lipase Urine WBC (Auto) Vancomycin Trough Crossmatch 12/15/17 12/15/17 12/15/17 17:00 18:59 21:37 WBC RBC Hgb Hct MCV MCH MCHC RDW Plt Count Lymph % (Auto) Eos % (Auto) [place] # Eos # Baso # Seg Neutrophils % Seg Neuts % (Manual) Lymphocytes % (Manual) Monocytes % (Manual) Eosinophils % (Manual) Nucleated RBC % Seg Neutrophils # Seg Neutrophils # Man Lymphocytes # (Manual) Monocytes # (Manual) Eosinophils # (Manual) APTT POC ABG pH ABG pH POC ABG pCO2 POC ABG pO2 ABG pO2 ABG HCO3 ABG O2 Saturation ABG Base Excess ABG Hemoglobin VBG pH Oxyhemoglobin Sodium Potassium Chloride Carbon Dioxide BUN Creatinine Glucose POC Glucose 195 H 208 H Lactic Acid Calcium Phosphorus Total Bilirubin AST ALT C-Reactive Protein Total Protein Albumin Triglycerides Amylase Lipase Urine WBC (Auto) 38.0 H Vancomycin Trough Crossmatch 12/16/17 12/16/17 12/16/17 03:17 03:33 04:18 WBC 16.4 H RBC 3.50 L Hgb 11.3 L Hct 35.4 L MCV 101 H MCH MCHC RDW Plt Count 54 L Lymph % (Auto) Eos % (Auto) [place] # Eos # Baso # Seg Neutrophils % Seg Neuts % (Manual) Lymphocytes % (Manual) Monocytes % (Manual) Eosinophils % (Manual) Nucleated RBC % Seg Neutrophils # Seg Neutrophils # Man Lymphocytes # (Manual) Monocytes # (Manual) Eosinophils # (Manual) APTT POC ABG pH ABG pH POC ABG pCO2 47.7 H POC ABG pO2 ABG pO2 ABG HCO3 ABG O2 Saturation ABG Base Excess ABG Hemoglobin VBG pH Oxyhemoglobin Sodium Potassium Chloride Carbon Dioxide BUN Creatinine Glucose POC Glucose 227 H Lactic Acid Calcium Phosphorus Total Bilirubin AST ALT C-Reactive Protein Total Protein Albumin Triglycerides Amylase Lipase Urine WBC (Auto) Vancomycin Trough Crossmatch 12/16/17 12/16/1718 04:18 05:08 10:01 WBC RBC Hgb Hct MCV MCH MCHC RDW Plt Count Lymph % (Auto) Eos % (Auto) [place] # Eos # Baso # Seg Neutrophils % Seg Neuts % (Manual) Lymphocytes % (Manual) Monocytes % (Manual) Eosinophils % (Manual) Nucleated RBC % Seg Neutrophils # Seg Neutrophils # Man Lymphocytes # (Manual) Monocytes # (Manual) Eosinophils # (Manual) APTT POC ABG pH ABG pH POC ABG pCO2 POC ABG pO2 ABG pO2 ABG HCO3 ABG O2 Saturation ABG Base Excess ABG Hemoglobin VBG pH Oxyhemoglobin Sodium 147 H Potassium Chloride 107.4 H Carbon Dioxide BUN 28 H Creatinine Glucose 240 H POC Glucose 227 H 190 H Lactic Acid Calcium 8.3 L Phosphorus Total Bilirubin AST ALT C-Reactive Protein Total Protein Albumin Triglycerides Amylase Lipase Urine WBC (Auto) Vancomycin Trough Crossmatch 12/16/17 12/16/17 12/16/17 14:15 17:51 21:14 WBC RBC Hgb Hct MCV MCH MCHC RDW Plt Count Lymph % (Auto) Eos % (Auto) [place] # Eos # Baso # Seg Neutrophils % Seg Neuts % (Manual) Lymphocytes % (Manual) Monocytes % (Manual) Eosinophils % (Manual) Nucleated RBC % Seg Neutrophils # Seg Neutrophils # Man Lymphocytes # (Manual) Monocytes # (Manual) Eosinophils # (Manual) APTT POC ABG pH ABG pH POC ABG pCO2 POC ABG pO2 ABG pO2 ABG HCO3 ABG O2 Saturation ABG Base Excess ABG Hemoglobin VBG pH Oxyhemoglobin Sodium Potassium Chloride Carbon Dioxide BUN Creatinine Glucose POC Glucose 279 H 272 H 260 H Lactic Acid Calcium Phosphorus Total Bilirubin AST ALT C-Reactive Protein Total Protein Albumin Triglycerides Amylase Lipase Urine WBC (Auto) Vancomycin Trough Crossmatch 12/17/17 12/17/17 12/17/17 02:41 04:28 04:28 WBC 19.1 H RBC 3.50 L Hgb 11.4 L Hct 35.3 L MCV 101 H MCH 33 H MCHC RDW Plt Count 65 L Lymph % (Auto) Eos % (Auto) [place] # Eos # Baso # Seg Neutrophils % Seg Neuts % (Manual) Lymphocytes % (Manual) Monocytes % (Manual) Eosinophils % (Manual) Nucleated RBC % Seg Neutrophils # Seg Neutrophils # Man Lymphocytes # (Manual) Monocytes # (Manual) Eosinophils # (Manual) APTT POC ABG pH ABG pH POC ABG pCO2 POC ABG pO2 ABG pO2 ABG HCO3 ABG O2 Saturation ABG Base Excess ABG Hemoglobin VBG pH Oxyhemoglobin Sodium 153 H Potassium Chloride 111.2 H Carbon Dioxide 31 H BUN 28 H Creatinine Glucose 248 H POC Glucose 300 H Lactic Acid Calcium Phosphorus Total Bilirubin AST ALT C-Reactive Protein Total Protein Albumin Triglycerides Amylase Lipase Urine WBC (Auto) Vancomycin Trough Crossmatch 12/17/17 12/17/17 12/17/17 05:15 05:38 10:16 WBC RBC Hgb Hct MCV MCH MCHC RDW Plt Count Lymph % (Auto) Eos % (Auto) [place] # Eos # Baso # Seg Neutrophils % Seg Neuts % (Manual) Lymphocytes % (Manual) Monocytes % (Manual) Eosinophils % (Manual) Nucleated RBC % Seg Neutrophils # Seg Neutrophils # Man Lymphocytes # (Manual) Monocytes # (Manual) Eosinophils # (Manual) APTT POC ABG pH ABG pH POC ABG pCO2 50.3 H POC ABG pO2 120 H ABG pO2 ABG HCO3 ABG O2 Saturation ABG Base Excess ABG Hemoglobin VBG pH Oxyhemoglobin Sodium Potassium Chloride Carbon Dioxide BUN Creatinine Glucose POC Glucose 231 H 196 H Lactic Acid Calcium Phosphorus Total Bilirubin AST ALT C-Reactive Protein Total Protein Albumin Triglycerides Amylase Lipase Urine WBC (Auto) Vancomycin Trough Crossmatch 12/17/17 12/17/17 12/17/17 14:22 18:14 21:35 WBC RBC Hgb Hct MCV MCH MCHC RDW Plt Count Lymph % (Auto) Eos % (Auto) [place] # Eos # Baso # Seg Neutrophils % Seg Neuts % (Manual) Lymphocytes % (Manual) Monocytes % (Manual) Eosinophils % (Manual) Nucleated RBC % Seg Neutrophils # Seg Neutrophils # Man Lymphocytes # (Manual) Monocytes # (Manual) Eosinophils # (Manual) APTT POC ABG pH ABG pH POC ABG pCO2 POC ABG pO2 ABG pO2 ABG HCO3 ABG O2 Saturation ABG Base Excess ABG Hemoglobin VBG pH Oxyhemoglobin Sodium Potassium Chloride Carbon Dioxide BUN Creatinine Glucose POC Glucose 234 H 215 H 159 H Lactic Acid Calcium Phosphorus Total Bilirubin AST ALT C-Reactive Protein Total Protein Albumin Triglycerides Amylase Lipase Urine WBC (Auto) Vancomycin Trough Crossmatch 12/18/17 12/18/17 12/18/17 00:53 02:58 06:03 WBC RBC Hgb Hct MCV MCH MCHC RDW Plt Count Lymph % (Auto) Eos % (Auto) [place] # Eos # Baso # Seg Neutrophils % Seg Neuts % (Manual) Lymphocytes % (Manual) Monocytes % (Manual) Eosinophils % (Manual) Nucleated RBC % Seg Neutrophils # Seg Neutrophils # Man Lymphocytes # (Manual) Monocytes # (Manual) Eosinophils # (Manual) APTT POC ABG pH ABG pH POC ABG pCO2 56.4 H POC ABG pO2 46 L ABG pO2 ABG HCO3 ABG O2 Saturation ABG Base Excess ABG Hemoglobin VBG pH Oxyhemoglobin Sodium Potassium Chloride Carbon Dioxide BUN Creatinine Glucose POC Glucose 176 H 143 H Lactic Acid Calcium Phosphorus Total Bilirubin AST ALT C-Reactive Protein Total Protein Albumin Triglycerides Amylase Lipase Urine WBC (Auto) Vancomycin Trough Crossmatch 12/18/17 12/18/17 12/18/17 07:59 09:20 09:20 WBC 27.4 H RBC 3.57 L Hgb 11.4 L Hct MCV 101 H MCH MCHC RDW Plt Count 64 L Lymph % (Auto) Eos % (Auto) [place] # Eos # Baso # Seg Neutrophils % Seg Neuts % (Manual) Lymphocytes % (Manual) Monocytes % (Manual) Eosinophils % (Manual) Nucleated RBC % Seg Neutrophils # Seg Neutrophils # Man Lymphocytes # (Manual) Monocytes # (Manual) Eosinophils # (Manual) APTT POC ABG pH ABG pH POC ABG pCO2 POC ABG pO2 ABG pO2 ABG HCO3 ABG O2 Saturation ABG Base Excess ABG Hemoglobin VBG pH Oxyhemoglobin Sodium 152 H Potassium Chloride 107.9 H Carbon Dioxide 34 H BUN 23 H Creatinine 0.7 L Glucose 181 H POC Glucose 197 H Lactic Acid Calcium Phosphorus Total Bilirubin AST ALT C-Reactive Protein Total Protein Albumin Triglycerides Amylase Lipase Urine WBC (Auto) Vancomycin Trough Crossmatch 12/18/17 12/18/17 12/18/17 10:22 15:03 18:15 WBC RBC Hgb Hct MCV MCH MCHC RDW Plt Count Lymph % (Auto) Eos % (Auto) [place] # Eos # Baso # Seg Neutrophils % Seg Neuts % (Manual) Lymphocytes % (Manual) Monocytes % (Manual) Eosinophils % (Manual) Nucleated RBC % Seg Neutrophils # Seg Neutrophils # Man Lymphocytes # (Manual) Monocytes # (Manual) Eosinophils # (Manual) APTT POC ABG pH ABG pH POC ABG pCO2 POC ABG pO2 ABG pO2 ABG HCO3 ABG O2 Saturation ABG Base Excess ABG Hemoglobin VBG pH Oxyhemoglobin Sodium Potassium Chloride Carbon Dioxide BUN Creatinine Glucose POC Glucose 195 H 225 H 238 H Lactic Acid Calcium Phosphorus Total Bilirubin AST ALT C-Reactive Protein Total Protein Albumin Triglycerides Amylase Lipase Urine WBC (Auto) Vancomycin Trough Crossmatch 12/18/17 12/18/17 12/19/17 18:29 21:53 00:18 WBC RBC Hgb Hct MCV MCH MCHC RDW Plt Count Lymph % (Auto) Eos % (Auto) [place] # Eos # Baso # Seg Neutrophils % Seg Neuts % (Manual) Lymphocytes % (Manual) Monocytes % (Manual) Eosinophils % (Manual) Nucleated RBC % Seg Neutrophils # Seg Neutrophils # Man Lymphocytes # (Manual) Monocytes # (Manual) Eosinophils # (Manual) APTT POC ABG pH 7.476 H ABG pH POC ABG pCO2 50.4 H POC ABG pO2 158 H ABG pO2 ABG HCO3 ABG O2 Saturation ABG Base Excess ABG Hemoglobin VBG pH Oxyhemoglobin Sodium Potassium Chloride Carbon Dioxide BUN Creatinine Glucose POC Glucose 231 H 263 H Lactic Acid Calcium Phosphorus Total Bilirubin AST ALT C-Reactive Protein Total Protein Albumin Triglycerides Amylase Lipase Urine WBC (Auto) Vancomycin Trough Crossmatch 12/19/17 12/19/17 12/19/17 02:09 04:07 04:07 WBC 25.9 H RBC 3.25 L Hgb 10.6 L Hct 32.8 L MCV 101 H MCH 33 H MCHC RDW Plt Count 67 L Lymph % (Auto) Eos % (Auto) [place] # Eos # Baso # Seg Neutrophils % Seg Neuts % (Manual) Lymphocytes % (Manual) 4.0 L Monocytes % (Manual) Eosinophils % (Manual) Nucleated RBC % Seg Neutrophils # Seg Neutrophils # Man 14.8 H Lymphocytes # (Manual) 1.0 L Monocytes # (Manual) Eosinophils # (Manual) APTT POC ABG pH ABG pH POC ABG pCO2 POC ABG pO2 ABG pO2 ABG HCO3 ABG O2 Saturation ABG Base Excess ABG Hemoglobin VBG pH Oxyhemoglobin Sodium 148 H Potassium Chloride Carbon Dioxide BUN 31 H Creatinine Glucose 314 H POC Glucose 300 H Lactic Acid Calcium 8.1 L Phosphorus Total Bilirubin AST ALT C-Reactive Protein Total Protein Albumin Triglycerides Amylase Lipase Urine WBC (Auto) Vancomycin Trough Crossmatch 12/19/17 12/19/17 12/19/17 05:15 05:41 07:57 WBC RBC Hgb Hct MCV MCH MCHC RDW Plt Count Lymph % (Auto) Eos % (Auto) [place] # Eos # Baso # Seg Neutrophils % Seg Neuts % (Manual) Lymphocytes % (Manual) Monocytes % (Manual) Eosinophils % (Manual) Nucleated RBC % Seg Neutrophils # Seg Neutrophils # Man Lymphocytes # (Manual) Monocytes # (Manual) Eosinophils # (Manual) APTT POC ABG pH 7.507 H ABG pH POC ABG pCO2 POC ABG pO2 ABG pO2 ABG HCO3 ABG O2 Saturation ABG Base Excess ABG Hemoglobin VBG pH Oxyhemoglobin Sodium Potassium Chloride Carbon Dioxide BUN Creatinine Glucose POC Glucose 331 H 307 H Lactic Acid Calcium Phosphorus Total Bilirubin AST ALT C-Reactive Protein Total Protein Albumin Triglycerides Amylase Lipase Urine WBC (Auto) Vancomycin Trough Crossmatch 12/19/17 12/19/17 12/19/17 10:21 14:48 17:59 WBC RBC Hgb Hct MCV MCH MCHC RDW Plt Count Lymph % (Auto) Eos % (Auto) [place] # Eos # Baso # Seg Neutrophils % Seg Neuts % (Manual) Lymphocytes % (Manual) Monocytes % (Manual) Eosinophils % (Manual) Nucleated RBC % Seg Neutrophils # Seg Neutrophils # Man Lymphocytes # (Manual) Monocytes # (Manual) Eosinophils # (Manual) APTT POC ABG pH ABG pH POC ABG pCO2 POC ABG pO2 ABG pO2 ABG HCO3 ABG O2 Saturation ABG Base Excess ABG Hemoglobin VBG pH Oxyhemoglobin Sodium Potassium Chloride Carbon Dioxide BUN Creatinine Glucose POC Glucose 358 H 327 H 355 H Lactic Acid Calcium Phosphorus Total Bilirubin AST ALT C-Reactive Protein Total Protein Albumin Triglycerides Amylase Lipase Urine WBC (Auto) Vancomycin Trough Crossmatch 12/19/17 12/20/17 12/20/17 21:38 02:21 03:42 WBC RBC Hgb Hct MCV MCH MCHC RDW Plt Count Lymph % (Auto) Eos % (Auto) [place] # Eos # Baso # Seg Neutrophils % Seg Neuts % (Manual) Lymphocytes % (Manual) Monocytes % (Manual) Eosinophils % (Manual) Nucleated RBC % Seg Neutrophils # Seg Neutrophils # Man Lymphocytes # (Manual) Monocytes # (Manual) Eosinophils # (Manual) APTT POC ABG pH 7.494 H ABG pH POC ABG pCO2 POC ABG pO2 ABG pO2 ABG HCO3 ABG O2 Saturation ABG Base Excess ABG Hemoglobin VBG pH Oxyhemoglobin Sodium Potassium Chloride Carbon Dioxide BUN Creatinine Glucose POC Glucose 329 H 354 H Lactic Acid Calcium Phosphorus Total Bilirubin AST ALT C-Reactive Protein Total Protein Albumin Triglycerides Amylase Lipase Urine WBC (Auto) Vancomycin Trough Crossmatch 12/20/17 12/20/17 12/20/17 04:08 04:08 04:08 WBC 22.7 H RBC 3.26 L Hgb 10.6 L Hct 32.9 L MCV 101 H MCH 33 H MCHC RDW Plt Count 78 L Lymph % (Auto) Eos % (Auto) [place] # Eos # Baso # Seg Neutrophils % Seg Neuts % (Manual) 80.0 H Lymphocytes % (Manual) 6.0 L Monocytes % (Manual) Eosinophils % (Manual) Nucleated RBC % Seg Neutrophils # Seg Neutrophils # Man 18.2 H Lymphocytes # (Manual) Monocytes # (Manual) Eosinophils # (Manual) APTT POC ABG pH ABG pH POC ABG pCO2 POC ABG pO2 ABG pO2 ABG HCO3 ABG O2 Saturation ABG Base Excess ABG Hemoglobin VBG pH Oxyhemoglobin Sodium Potassium Chloride Carbon Dioxide 31 H BUN 30 H Creatinine 0.6 L Glucose 365 H POC Glucose Lactic Acid Calcium Phosphorus Total Bilirubin AST ALT C-Reactive Protein Total Protein Albumin Triglycerides 981 H Amylase Lipase Urine WBC (Auto) Vancomycin Trough Crossmatch 12/20/17 12/20/17 12/20/17 05:15 10:47 13:40 WBC RBC Hgb Hct MCV MCH MCHC RDW Plt Count Lymph % (Auto) Eos % (Auto) [place] # Eos # Baso # Seg Neutrophils % Seg Neuts % (Manual) Lymphocytes % (Manual) Monocytes % (Manual) Eosinophils % (Manual) Nucleated RBC % Seg Neutrophils # Seg Neutrophils # Man Lymphocytes # (Manual) Monocytes # (Manual) Eosinophils # (Manual) APTT POC ABG pH ABG pH POC ABG pCO2 POC ABG pO2 ABG pO2 ABG HCO3 ABG O2 Saturation ABG Base Excess ABG Hemoglobin VBG pH Oxyhemoglobin Sodium Potassium Chloride Carbon Dioxide BUN Creatinine Glucose POC Glucose 342 H 330 H Lactic Acid Calcium Phosphorus Total Bilirubin AST ALT C-Reactive Protein 7.10 H Total Protein Albumin Triglycerides Amylase Lipase Urine WBC (Auto) Vancomycin Trough Crossmatch 12/20/17 12/20/17 12/20/17 13:40 14:52 16:55 WBC RBC Hgb Hct MCV MCH MCHC RDW Plt Count Lymph % (Auto) Eos % (Auto) [place] # Eos # Baso # Seg Neutrophils % Seg Neuts % (Manual) Lymphocytes % (Manual) Monocytes % (Manual) Eosinophils % (Manual) Nucleated RBC % Seg Neutrophils # Seg Neutrophils # Man Lymphocytes # (Manual) Monocytes # (Manual) Eosinophils # (Manual) APTT POC ABG pH 7.484 H ABG pH POC ABG pCO2 POC ABG pO2 ABG pO2 ABG HCO3 ABG O2 Saturation ABG Base Excess ABG Hemoglobin VBG pH Oxyhemoglobin Sodium Potassium Chloride Carbon Dioxide BUN Creatinine Glucose POC Glucose 293 H Lactic Acid Calcium Phosphorus Total Bilirubin AST ALT C-Reactive Protein Total Protein Albumin Triglycerides 1042 H Amylase Lipase Urine WBC (Auto) Vancomycin Trough Crossmatch 12/20/17 12/20/17 12/21/17 18:00 21:58 02:05 WBC RBC Hgb Hct MCV MCH MCHC RDW Plt Count Lymph % (Auto) Eos % (Auto) [place] # Eos # Baso # Seg Neutrophils % Seg Neuts % (Manual) Lymphocytes % (Manual) Monocytes % (Manual) Eosinophils % (Manual) Nucleated RBC % Seg Neutrophils # Seg Neutrophils # Man Lymphocytes # (Manual) Monocytes # (Manual) Eosinophils # (Manual) APTT POC ABG pH ABG pH POC ABG pCO2 POC ABG pO2 ABG pO2 ABG HCO3 ABG O2 Saturation ABG Base Excess ABG Hemoglobin VBG pH Oxyhemoglobin Sodium Potassium Chloride Carbon Dioxide BUN Creatinine Glucose POC Glucose 268 H 272 H 229 H Lactic Acid Calcium Phosphorus Total Bilirubin AST ALT C-Reactive Protein Total Protein Albumin Triglycerides Amylase Lipase Urine WBC (Auto) Vancomycin Trough Crossmatch 12/21/17 12/21/17 12/21/17 03:59 06:23 08:57 WBC RBC Hgb Hct MCV MCH MCHC RDW Plt Count Lymph % (Auto) Eos % (Auto) [place] # Eos # Baso # Seg Neutrophils % Seg Neuts % (Manual) Lymphocytes % (Manual) Monocytes % (Manual) Eosinophils % (Manual) Nucleated RBC % Seg Neutrophils # Seg Neutrophils # Man Lymphocytes # (Manual) Monocytes # (Manual) Eosinophils # (Manual) APTT POC ABG pH 7.474 H ABG pH POC ABG pCO2 POC ABG pO2 71 L ABG pO2 ABG HCO3 ABG O2 Saturation ABG Base Excess ABG Hemoglobin VBG pH Oxyhemoglobin Sodium Potassium Chloride Carbon Dioxide BUN Creatinine Glucose POC Glucose 182 H 217 H Lactic Acid Calcium Phosphorus Total Bilirubin AST ALT C-Reactive Protein Total Protein Albumin Triglycerides Amylase Lipase Urine WBC (Auto) Vancomycin Trough Crossmatch 12/21/17 12/21/17 12/21/17 13:59 18:00 21:20 WBC RBC Hgb Hct MCV MCH MCHC RDW Plt Count Lymph % (Auto) Eos % (Auto) [place] # Eos # Baso # Seg Neutrophils % Seg Neuts % (Manual) Lymphocytes % (Manual) Monocytes % (Manual) Eosinophils % (Manual) Nucleated RBC % Seg Neutrophils # Seg Neutrophils # Man Lymphocytes # (Manual) Monocytes # (Manual) Eosinophils # (Manual) APTT POC ABG pH ABG pH POC ABG pCO2 POC ABG pO2 ABG pO2 ABG HCO3 ABG O2 Saturation ABG Base Excess ABG Hemoglobin VBG pH Oxyhemoglobin Sodium Potassium Chloride Carbon Dioxide BUN Creatinine Glucose POC Glucose 185 H 176 H 187 H Lactic Acid Calcium Phosphorus Total Bilirubin AST ALT C-Reactive Protein Total Protein Albumin Triglycerides Amylase Lipase Urine WBC (Auto) Vancomycin Trough Crossmatch 12/21/17 12/22/17 12/22/17 23:48 04:39 05:30 WBC RBC Hgb Hct MCV MCH MCHC RDW Plt Count Lymph % (Auto) Eos % (Auto) [place] # Eos # Baso # Seg Neutrophils % Seg Neuts % (Manual) Lymphocytes % (Manual) Monocytes % (Manual) Eosinophils % (Manual) Nucleated RBC % Seg Neutrophils # Seg Neutrophils # Man Lymphocytes # (Manual) Monocytes # (Manual) Eosinophils # (Manual) APTT POC ABG pH 7.528 H ABG pH POC ABG pCO2 POC ABG pO2 63 L ABG pO2 ABG HCO3 ABG O2 Saturation ABG Base Excess ABG Hemoglobin VBG pH Oxyhemoglobin Sodium Potassium Chloride Carbon Dioxide BUN Creatinine Glucose POC Glucose 126 H 117 H Lactic Acid Calcium Phosphorus Total Bilirubin AST ALT C-Reactive Protein Total Protein Albumin Triglycerides Amylase Lipase Urine WBC (Auto) Vancomycin Trough Crossmatch 12/22/17 12/22/17 12/22/17 09:12 10:34 10:34 WBC 29.5 H RBC 3.44 L Hgb 11.2 L Hct 34.2 L MCV 99 H MCH 33 H MCHC RDW 13.1 L Plt Count 97 L Lymph % (Auto) Eos % (Auto) [place] # Eos # Baso # Seg Neutrophils % Seg Neuts % (Manual) 88.0 H Lymphocytes % (Manual) 5.0 L Monocytes % (Manual) Eosinophils % (Manual) Nucleated RBC % Seg Neutrophils # Seg Neutrophils # Man 26.0 H Lymphocytes # (Manual) Monocytes # (Manual) Eosinophils # (Manual) APTT POC ABG pH ABG pH POC ABG pCO2 POC ABG pO2 ABG pO2 ABG HCO3 ABG O2 Saturation ABG Base Excess ABG Hemoglobin VBG pH Oxyhemoglobin Sodium 146 H Potassium 3.1 L Chloride Carbon Dioxide BUN 25 H Creatinine 0.7 L Glucose 146 H POC Glucose 168 H Lactic Acid Calcium 8.1 L Phosphorus Total Bilirubin AST ALT C-Reactive Protein Total Protein Albumin Triglycerides Amylase Lipase Urine WBC (Auto) Vancomycin Trough Crossmatch 12/22/17 12/22/17 12/22/17 14:51 17:21 21:43 WBC RBC Hgb Hct MCV MCH MCHC RDW Plt Count Lymph % (Auto) Eos % (Auto) [place] # Eos # Baso # Seg Neutrophils % Seg Neuts % (Manual) Lymphocytes % (Manual) Monocytes % (Manual) Eosinophils % (Manual) Nucleated RBC % Seg Neutrophils # Seg Neutrophils # Man Lymphocytes # (Manual) Monocytes # (Manual) Eosinophils # (Manual) APTT POC ABG pH ABG pH POC ABG pCO2 POC ABG pO2 ABG pO2 ABG HCO3 ABG O2 Saturation ABG Base Excess ABG Hemoglobin VBG pH Oxyhemoglobin Sodium Potassium Chloride Carbon Dioxide BUN Creatinine Glucose POC Glucose 125 H 110 H 153 H Lactic Acid Calcium Phosphorus Total Bilirubin AST ALT C-Reactive Protein Total Protein Albumin Triglycerides Amylase Lipase Urine WBC (Auto) Vancomycin Trough Crossmatch 12/23/17 12/23/17 12/23/17 04:33 05:28 09:25 WBC 31.4 H RBC 3.05 L Hgb 9.8 L Hct 30.2 L MCV 99 H MCH MCHC RDW 12.9 L Plt Count 101 L Lymph % (Auto) Eos % (Auto) [place] # Eos # Baso # Seg Neutrophils % Seg Neuts % (Manual) 97 H Lymphocytes % (Manual) 2 L Monocytes % (Manual) Eosinophils % (Manual) Nucleated RBC % Seg Neutrophils # Seg Neutrophils # Man 31.1 H Lymphocytes # (Manual) 0.5 L Monocytes # (Manual) Eosinophils # (Manual) APTT POC ABG pH 7.573 H ABG pH POC ABG pCO2 31.0 L POC ABG pO2 63 L ABG pO2 ABG HCO3 ABG O2 Saturation ABG Base Excess ABG Hemoglobin VBG pH Oxyhemoglobin Sodium Potassium Chloride Carbon Dioxide BUN Creatinine Glucose POC Glucose 124 H Lactic Acid Calcium Phosphorus Total Bilirubin AST ALT C-Reactive Protein Total Protein Albumin Triglycerides Amylase Lipase Urine WBC (Auto) Vancomycin Trough Crossmatch 12/23/17 12/23/17 12/23/17 09:25 10:08 14:20 WBC RBC Hgb Hct MCV MCH MCHC RDW Plt Count Lymph % (Auto) Eos % (Auto) [place] # Eos # Baso # Seg Neutrophils % Seg Neuts % (Manual) Lymphocytes % (Manual) Monocytes % (Manual) Eosinophils % (Manual) Nucleated RBC % Seg Neutrophils # Seg Neutrophils # Man Lymphocytes # (Manual) Monocytes # (Manual) Eosinophils # (Manual) APTT POC ABG pH ABG pH POC ABG pCO2 POC ABG pO2 ABG pO2 ABG HCO3 ABG O2 Saturation ABG Base Excess ABG Hemoglobin VBG pH Oxyhemoglobin Sodium Potassium 3.1 L Chloride Carbon Dioxide BUN Creatinine 0.6 L Glucose 169 H POC Glucose 171 H 211 H Lactic Acid Calcium 7.9 L Phosphorus Total Bilirubin AST ALT C-Reactive Protein Total Protein Albumin Triglycerides Amylase Lipase Urine WBC (Auto) Vancomycin Trough Crossmatch 12/23/17 12/23/17 12/24/17 18:59 21:49 01:47 WBC RBC Hgb Hct MCV MCH MCHC RDW Plt Count Lymph % (Auto) Eos % (Auto) [place] # Eos # Baso # Seg Neutrophils % Seg Neuts % (Manual) Lymphocytes % (Manual) Monocytes % (Manual) Eosinophils % (Manual) Nucleated RBC % Seg Neutrophils # Seg Neutrophils # Man Lymphocytes # (Manual) Monocytes # (Manual) Eosinophils # (Manual) APTT POC ABG pH ABG pH POC ABG pCO2 POC ABG pO2 ABG pO2 ABG HCO3 ABG O2 Saturation ABG Base Excess ABG Hemoglobin VBG pH Oxyhemoglobin Sodium Potassium Chloride Carbon Dioxide BUN Creatinine Glucose POC Glucose 175 H 146 H 143 H Lactic Acid Calcium Phosphorus Total Bilirubin AST ALT C-Reactive Protein Total Protein Albumin Triglycerides Amylase Lipase Urine WBC (Auto) Vancomycin Trough Crossmatch 12/24/17 12/24/17 12/24/17 05:40 10:12 13:12 WBC RBC Hgb Hct MCV MCH MCHC RDW Plt Count Lymph % (Auto) Eos % (Auto) [place] # Eos # Baso # Seg Neutrophils % Seg Neuts % (Manual) Lymphocytes % (Manual) Monocytes % (Manual) Eosinophils % (Manual) Nucleated RBC % Seg Neutrophils # Seg Neutrophils # Man Lymphocytes # (Manual) Monocytes # (Manual) Eosinophils # (Manual) APTT POC ABG pH 7.558 H ABG pH POC ABG pCO2 27.6 L POC ABG pO2 71 L ABG pO2 ABG HCO3 ABG O2 Saturation ABG Base Excess ABG Hemoglobin VBG pH Oxyhemoglobin Sodium Potassium Chloride Carbon Dioxide BUN Creatinine Glucose POC Glucose 118 H 111 H Lactic Acid Calcium Phosphorus Total Bilirubin AST ALT C-Reactive Protein Total Protein Albumin Triglycerides Amylase Lipase Urine WBC (Auto) Vancomycin Trough Crossmatch 12/24/17 12/24/17 12/24/17 16:26 20:44 21:49 WBC RBC Hgb Hct MCV MCH MCHC RDW Plt Count Lymph % (Auto) Eos % (Auto) [place] # Eos # Baso # Seg Neutrophils % Seg Neuts % (Manual) Lymphocytes % (Manual) Monocytes % (Manual) Eosinophils % (Manual) Nucleated RBC % Seg Neutrophils # Seg Neutrophils # Man Lymphocytes # (Manual) Monocytes # (Manual) Eosinophils # (Manual) APTT POC ABG pH ABG pH POC ABG pCO2 POC ABG pO2 ABG pO2 ABG HCO3 ABG O2 Saturation ABG Base Excess ABG Hemoglobin VBG pH Oxyhemoglobin Sodium Potassium Chloride Carbon Dioxide BUN Creatinine Glucose POC Glucose 113 H 124 H 115 H Lactic Acid Calcium Phosphorus Total Bilirubin AST ALT C-Reactive Protein Total Protein Albumin Triglycerides Amylase Lipase Urine WBC (Auto) Vancomycin Trough Crossmatch 12/24/17 12/25/17 12/25/17 Unknown 02:26 03:38 WBC RBC Hgb Hct MCV MCH MCHC RDW Plt Count Lymph % (Auto) Eos % (Auto) [place] # Eos # Baso # Seg Neutrophils % Seg Neuts % (Manual) Lymphocytes % (Manual) Monocytes % (Manual) Eosinophils % (Manual) Nucleated RBC % Seg Neutrophils # Seg Neutrophils # Man Lymphocytes # (Manual) Monocytes # (Manual) Eosinophils # (Manual) APTT POC ABG pH 7.503 H ABG pH POC ABG pCO2 POC ABG pO2 66 L ABG pO2 ABG HCO3 ABG O2 Saturation ABG Base Excess ABG Hemoglobin VBG pH Oxyhemoglobin Sodium Potassium 3.0 L Chloride Carbon Dioxide BUN Creatinine 0.5 L Glucose 166 H POC Glucose 106 H Lactic Acid Calcium 7.8 L Phosphorus Total Bilirubin AST ALT C-Reactive Protein Total Protein Albumin Triglycerides Amylase Lipase Urine WBC (Auto) Vancomycin Trough Crossmatch 12/25/17 12/25/17 12/25/17 04:58 12:58 15:06 WBC RBC Hgb Hct MCV MCH MCHC RDW Plt Count Lymph % (Auto) Eos % (Auto) [place] # Eos # Baso # Seg Neutrophils % Seg Neuts % (Manual) Lymphocytes % (Manual) Monocytes % (Manual) Eosinophils % (Manual) Nucleated RBC % Seg Neutrophils # Seg Neutrophils # Man Lymphocytes # (Manual) Monocytes # (Manual) Eosinophils # (Manual) APTT POC ABG pH ABG pH POC ABG pCO2 POC ABG pO2 ABG pO2 ABG HCO3 ABG O2 Saturation ABG Base Excess ABG Hemoglobin VBG pH Oxyhemoglobin Sodium Potassium Chloride Carbon Dioxide BUN Creatinine Glucose POC Glucose 113 H 118 H Lactic Acid Calcium Phosphorus Total Bilirubin AST ALT C-Reactive Protein Total Protein Albumin Triglycerides Amylase Lipase Urine WBC (Auto) Vancomycin Trough 22.5 H Crossmatch 12/25/17 12/25/17 12/25/17 17:59 21:33 Unknown WBC 20.5 H RBC 2.75 L Hgb 9.1 L Hct 27.1 L MCV 99 H MCH 33 H MCHC RDW Plt Count 126 L Lymph % (Auto) Eos % (Auto) [place] # Eos # Baso # Seg Neutrophils % Seg Neuts % (Manual) 89.0 H Lymphocytes % (Manual) 6.0 L Monocytes % (Manual) Eosinophils % (Manual) Nucleated RBC % Seg Neutrophils # Seg Neutrophils # Man 18.2 H Lymphocytes # (Manual) Monocytes # (Manual) Eosinophils # (Manual) APTT POC ABG pH ABG pH POC ABG pCO2 POC ABG pO2 ABG pO2 ABG HCO3 ABG O2 Saturation ABG Base Excess ABG Hemoglobin VBG pH Oxyhemoglobin Sodium Potassium Chloride Carbon Dioxide BUN Creatinine Glucose POC Glucose 145 H 167 H Lactic Acid Calcium Phosphorus Total Bilirubin AST ALT C-Reactive Protein Total Protein Albumin Triglycerides Amylase Lipase Urine WBC (Auto) Vancomycin Trough Crossmatch 03/28/18 03/29/18 03/29/18 Unknown 02:26 05:29 WBC RBC Hgb Hct MCV MCH MCHC RDW Plt Count Lymph % (Auto) Eos % (Auto) [place] # Eos # Baso # Seg Neutrophils % Seg Neuts % (Manual) Lymphocytes % (Manual) Monocytes % (Manual) Eosinophils % (Manual) Nucleated RBC % Seg Neutrophils # Seg Neutrophils # Man Lymphocytes # (Manual) Monocytes # (Manual) Eosinophils # (Manual) APTT POC ABG pH ABG pH POC ABG pCO2 POC ABG pO2 ABG pO2 ABG HCO3 ABG O2 Saturation ABG Base Excess ABG Hemoglobin VBG pH Oxyhemoglobin Sodium Potassium 2.8 L* Chloride Carbon Dioxide BUN Creatinine 0.6 L Glucose POC Glucose 167 H 216 H Lactic Acid Calcium 7.4 L Phosphorus Total Bilirubin AST ALT C-Reactive Protein Total Protein Albumin Triglycerides Amylase Lipase Urine WBC (Auto) Vancomycin Trough Crossmatch 12/26/17 12/26/17 12/26/17 10:21 14:30 18:35 WBC RBC Hgb Hct MCV MCH MCHC RDW Plt Count Lymph % (Auto) Eos % (Auto) [place] # Eos # Baso # Seg Neutrophils % Seg Neuts % (Manual) Lymphocytes % (Manual) Monocytes % (Manual) Eosinophils % (Manual) Nucleated RBC % Seg Neutrophils # Seg Neutrophils # Man Lymphocytes # (Manual) Monocytes # (Manual) Eosinophils # (Manual) APTT POC ABG pH ABG pH POC ABG pCO2 POC ABG pO2 ABG pO2 ABG HCO3 ABG O2 Saturation ABG Base Excess ABG Hemoglobin VBG pH Oxyhemoglobin Sodium Potassium Chloride Carbon Dioxide BUN Creatinine Glucose POC Glucose 164 H 157 H 146 H Lactic Acid Calcium Phosphorus Total Bilirubin AST ALT C-Reactive Protein Total Protein Albumin Triglycerides Amylase Lipase Urine WBC (Auto) Vancomycin Trough Crossmatch 12/26/17 12/26/17 12/27/17 21:21 Unknown 01:54 WBC RBC Hgb Hct MCV MCH MCHC RDW Plt Count Lymph % (Auto) Eos % (Auto) [place] # Eos # Baso # Seg Neutrophils % Seg Neuts % (Manual) Lymphocytes % (Manual) Monocytes % (Manual) Eosinophils % (Manual) Nucleated RBC % Seg Neutrophils # Seg Neutrophils # Man Lymphocytes # (Manual) Monocytes # (Manual) Eosinophils # (Manual) APTT POC ABG pH ABG pH POC ABG pCO2 POC ABG pO2 ABG pO2 ABG HCO3 ABG O2 Saturation ABG Base Excess ABG Hemoglobin VBG pH Oxyhemoglobin Sodium Potassium 3.0 L Chloride Carbon Dioxide BUN Creatinine 0.5 L Glucose 166 H POC Glucose 132 H 157 H Lactic Acid Calcium 7.8 L Phosphorus Total Bilirubin AST ALT C-Reactive Protein Total Protein Albumin Triglycerides Amylase Lipase Urine WBC (Auto) Vancomycin Trough Crossmatch 12/27/17 12/27/17 12/27/17 05:20 05:20 05:44 WBC 26.4 H RBC 2.83 L Hgb 9.3 L Hct 27.6 L MCV 98 H MCH 33 H MCHC RDW Plt Count Lymph % (Auto) Eos % (Auto) [place] # Eos # Baso # Seg Neutrophils % Seg Neuts % (Manual) 85.0 H Lymphocytes % (Manual) 5.0 L Monocytes % (Manual) Eosinophils % (Manual) Nucleated RBC % Seg Neutrophils # Seg Neutrophils # Man 22.4 H Lymphocytes # (Manual) Monocytes # (Manual) Eosinophils # (Manual) 0.5 H APTT POC ABG pH ABG pH POC ABG pCO2 POC ABG pO2 ABG pO2 ABG HCO3 ABG O2 Saturation ABG Base Excess ABG Hemoglobin VBG pH Oxyhemoglobin Sodium Potassium 2.3 L* D Chloride Carbon Dioxide BUN 7 L Creatinine 0.6 L Glucose 123 H POC Glucose 128 H Lactic Acid Calcium 8.1 L Phosphorus Total Bilirubin AST ALT C-Reactive Protein Total Protein Albumin Triglycerides Amylase Lipase Urine WBC (Auto) Vancomycin Trough Crossmatch 12/27/17 12/27/17 12/27/17 10:04 14:44 15:30 WBC RBC Hgb Hct MCV MCH MCHC RDW Plt Count Lymph % (Auto) Eos % (Auto) [place] # Eos # Baso # Seg Neutrophils % Seg Neuts % (Manual) Lymphocytes % (Manual) Monocytes % (Manual) Eosinophils % (Manual) Nucleated RBC % Seg Neutrophils # Seg Neutrophils # Man Lymphocytes # (Manual) Monocytes # (Manual) Eosinophils # (Manual) APTT POC ABG pH ABG pH POC ABG pCO2 POC ABG pO2 ABG pO2 ABG HCO3 ABG O2 Saturation ABG Base Excess ABG Hemoglobin VBG pH Oxyhemoglobin Sodium Potassium 3.1 L D Chloride Carbon Dioxide BUN Creatinine Glucose POC Glucose 115 H 128 H Lactic Acid Calcium Phosphorus Total Bilirubin AST ALT C-Reactive Protein Total Protein Albumin Triglycerides Amylase Lipase Urine WBC (Auto) Vancomycin Trough Crossmatch 03/12/28/17 12/28/17 00:39 02:13 05:17 WBC RBC Hgb Hct MCV MCH MCHC RDW Plt Count Lymph % (Auto) Eos % (Auto) [place] # Eos # Baso # Seg Neutrophils % Seg Neuts % (Manual) Lymphocytes % (Manual) Monocytes % (Manual) Eosinophils % (Manual) Nucleated RBC % Seg Neutrophils # Seg Neutrophils # Man Lymphocytes # (Manual) Monocytes # (Manual) Eosinophils # (Manual) APTT POC ABG pH ABG pH 7.497 H POC ABG pCO2 POC ABG pO2 ABG pO2 71.4 L ABG HCO3 29.9 H ABG O2 Saturation ABG Base Excess 6.2 H ABG Hemoglobin 7.9 L VBG pH Oxyhemoglobin 94.9 L Sodium Potassium Chloride Carbon Dioxide BUN Creatinine Glucose POC Glucose 112 H 108 H Lactic Acid Calcium Phosphorus Total Bilirubin AST ALT C-Reactive Protein Total Protein Albumin Triglycerides Amylase Lipase Urine WBC (Auto) Vancomycin Trough Crossmatch 12/28/17 12/28/17 12/28/17 08:47 08:47 09:10 WBC 28.1 H RBC 2.76 L Hgb 9.1 L Hct 27.0 L MCV 98 H MCH 33 H MCHC RDW Plt Count Lymph % (Auto) Eos % (Auto) [place] # Eos # Baso # Seg Neutrophils % Seg Neuts % (Manual) Lymphocytes % (Manual) Monocytes % (Manual) Eosinophils % (Manual) Nucleated RBC % Seg Neutrophils # Seg Neutrophils # Man Lymphocytes # (Manual) Monocytes # (Manual) Eosinophils # (Manual) APTT POC ABG pH ABG pH POC ABG pCO2 POC ABG pO2 ABG pO2 ABG HCO3 ABG O2 Saturation ABG Base Excess ABG Hemoglobin VBG pH Oxyhemoglobin Sodium Potassium 2.2 L* D Chloride Carbon Dioxide BUN 5 L Creatinine 0.5 L Glucose 106 H POC Glucose Lactic Acid Calcium 8.3 L Phosphorus 2.20 L Total Bilirubin AST ALT C-Reactive Protein Total Protein Albumin Triglycerides Amylase Lipase Urine WBC (Auto) Vancomycin Trough Crossmatch 12/28/17 12/28/17 12/28/17 13:28 14:22 18:48 WBC RBC Hgb Hct MCV MCH MCHC RDW Plt Count Lymph % (Auto) Eos % (Auto) [place] # Eos # Baso # Seg Neutrophils % Seg Neuts % (Manual) Lymphocytes % (Manual) Monocytes % (Manual) Eosinophils % (Manual) Nucleated RBC % Seg Neutrophils # Seg Neutrophils # Man Lymphocytes # (Manual) Monocytes # (Manual) Eosinophils # (Manual) APTT POC ABG pH ABG pH 7.476 H POC ABG pCO2 POC ABG pO2 ABG pO2 167.7 H ABG HCO3 30.9 H ABG O2 Saturation 99.1 H ABG Base Excess 6.7 H ABG Hemoglobin 8.5 L VBG pH Oxyhemoglobin Sodium Potassium Chloride Carbon Dioxide BUN Creatinine Glucose POC Glucose 141 H 129 H Lactic Acid Calcium Phosphorus Total Bilirubin AST ALT C-Reactive Protein Total Protein Albumin Triglycerides Amylase Lipase Urine WBC (Auto) Vancomycin Trough Crossmatch 12/28/17 12/29/17 12/29/17 21:22 02:45 05:11 WBC RBC Hgb Hct MCV MCH MCHC RDW Plt Count Lymph % (Auto) Eos % (Auto) [place] # Eos # Baso # Seg Neutrophils % Seg Neuts % (Manual) Lymphocytes % (Manual) Monocytes % (Manual) Eosinophils % (Manual) Nucleated RBC % Seg Neutrophils # Seg Neutrophils # Man Lymphocytes # (Manual) Monocytes # (Manual) Eosinophils # (Manual) APTT POC ABG pH ABG pH POC ABG pCO2 POC ABG pO2 ABG pO2 ABG HCO3 ABG O2 Saturation ABG Base Excess ABG Hemoglobin VBG pH Oxyhemoglobin Sodium Potassium Chloride Carbon Dioxide BUN Creatinine Glucose POC Glucose 123 H 138 H 138 H Lactic Acid Calcium Phosphorus Total Bilirubin AST ALT C-Reactive Protein Total Protein Albumin Triglycerides Amylase Lipase Urine WBC (Auto) Vancomycin Trough Crossmatch 12/29/17 12/29/17 12/29/17 05:50 08:04 08:04 WBC 20.8 H RBC 2.26 L Hgb 7.5 L Hct 22.7 L MCV 100 H MCH 33 H MCHC RDW Plt Count Lymph % (Auto) Eos % (Auto) [place] # Eos # Baso # Seg Neutrophils % Seg Neuts % (Manual) 93.0 H Lymphocytes % (Manual) 2.0 L Monocytes % (Manual) Eosinophils % (Manual) Nucleated RBC % Seg Neutrophils # Seg Neutrophils # Man 19.3 H Lymphocytes # (Manual) 0.4 L Monocytes # (Manual) Eosinophils # (Manual) 0.7 H APTT POC ABG pH ABG pH 7.467 H POC ABG pCO2 POC ABG pO2 ABG pO2 ABG HCO3 28.2 H ABG O2 Saturation ABG Base Excess 4.0 H ABG Hemoglobin < 5.1 L VBG pH Oxyhemoglobin Sodium Potassium 3.0 L D Chloride Carbon Dioxide BUN Creatinine 0.5 L Glucose 147 H POC Glucose Lactic Acid Calcium 7.8 L Phosphorus Total Bilirubin AST ALT C-Reactive Protein Total Protein 5.6 L Albumin 2.4 L Triglycerides Amylase Lipase Urine WBC (Auto) Vancomycin Trough Crossmatch 12/29/17 12/29/17 12/29/17 08:20 10:59 14:09 WBC RBC Hgb Hct MCV MCH MCHC RDW Plt Count Lymph % (Auto) Eos % (Auto) [place] # Eos # Baso # Seg Neutrophils % Seg Neuts % (Manual) Lymphocytes % (Manual) Monocytes % (Manual) Eosinophils % (Manual) Nucleated RBC % Seg Neutrophils # Seg Neutrophils # Man Lymphocytes # (Manual) Monocytes # (Manual) Eosinophils # (Manual) APTT POC ABG pH ABG pH POC ABG pCO2 POC ABG pO2 ABG pO2 ABG HCO3 ABG O2 Saturation ABG Base Excess ABG Hemoglobin VBG pH Oxyhemoglobin Sodium Potassium Chloride Carbon Dioxide BUN Creatinine Glucose POC Glucose 153 H 186 H 183 H Lactic Acid Calcium Phosphorus Total Bilirubin AST ALT C-Reactive Protein Total Protein Albumin Triglycerides Amylase Lipase Urine WBC (Auto) Vancomycin Trough Crossmatch 12/29/17 12/29/17 12/29/17 18:03 22:05 22:56 WBC RBC Hgb Hct MCV MCH MCHC RDW Plt Count Lymph % (Auto) Eos % (Auto) [place] # Eos # Baso # Seg Neutrophils % Seg Neuts % (Manual) Lymphocytes % (Manual) Monocytes % (Manual) Eosinophils % (Manual) Nucleated RBC % Seg Neutrophils # Seg Neutrophils # Man Lymphocytes # (Manual) Monocytes # (Manual) Eosinophils # (Manual) APTT POC ABG pH ABG pH POC ABG pCO2 POC ABG pO2 ABG pO2 ABG HCO3 ABG O2 Saturation ABG Base Excess ABG Hemoglobin VBG pH Oxyhemoglobin Sodium Potassium Chloride Carbon Dioxide BUN Creatinine Glucose POC Glucose 159 H 146 H 179 H Lactic Acid Calcium Phosphorus Total Bilirubin AST ALT C-Reactive Protein Total Protein Albumin Triglycerides Amylase Lipase Urine WBC (Auto) Vancomycin Trough Crossmatch 12/30/17 12/30/17 12/30/17 02:03 04:50 04:50 WBC 18.3 H RBC 2.22 L Hgb 7.4 L Hct 23.0 L MCV 104 H MCH 33 H MCHC RDW Plt Count 137 L Lymph % (Auto) 9.0 L Eos % (Auto) [place] # Eos # 0.5 H Baso # Seg Neutrophils % 84.9 H Seg Neuts % (Manual) Lymphocytes % (Manual) Monocytes % (Manual) Eosinophils % (Manual) Nucleated RBC % Seg Neutrophils # 15.6 H Seg Neutrophils # Man Lymphocytes # (Manual) Monocytes # (Manual) Eosinophils # (Manual) APTT POC ABG pH ABG pH POC ABG pCO2 POC ABG pO2 ABG pO2 ABG HCO3 ABG O2 Saturation ABG Base Excess ABG Hemoglobin VBG pH Oxyhemoglobin Sodium 147 H Potassium 3.1 L D Chloride 107.5 H Carbon Dioxide BUN Creatinine 0.5 L Glucose 120 H POC Glucose 118 H Lactic Acid Calcium 7.4 L Phosphorus Total Bilirubin AST ALT C-Reactive Protein Total Protein Albumin Triglycerides Amylase Lipase Urine WBC (Auto) Vancomycin Trough Crossmatch 12/30/17 12/30/17 12/30/17 05:04 13:53 17:33 WBC RBC Hgb Hct MCV MCH MCHC RDW Plt Count Lymph % (Auto) Eos % (Auto) [place] # Eos # Baso # Seg Neutrophils % Seg Neuts % (Manual) Lymphocytes % (Manual) Monocytes % (Manual) Eosinophils % (Manual) Nucleated RBC % Seg Neutrophils # Seg Neutrophils # Man Lymphocytes # (Manual) Monocytes # (Manual) Eosinophils # (Manual) APTT POC ABG pH ABG pH POC ABG pCO2 POC ABG pO2 ABG pO2 ABG HCO3 ABG O2 Saturation ABG Base Excess ABG Hemoglobin VBG pH Oxyhemoglobin Sodium Potassium Chloride Carbon Dioxide BUN Creatinine Glucose POC Glucose 150 H 113 H 145 H Lactic Acid Calcium Phosphorus Total Bilirubin AST ALT C-Reactive Protein Total Protein Albumin Triglycerides Amylase Lipase Urine WBC (Auto) Vancomycin Trough Crossmatch 12/31/17 12/31/17 12/31/17 01:54 03:15 03:15 WBC 17.1 H RBC 2.08 L Hgb 6.9 L Hct 20.6 L MCV 99 H MCH 33 H MCHC RDW 13.1 L Plt Count Lymph % (Auto) 10.5 L Eos % (Auto) [place] # Eos # 0.6 H Baso # Seg Neutrophils % 82.3 H Seg Neuts % (Manual) Lymphocytes % (Manual) Monocytes % (Manual) Eosinophils % (Manual) Nucleated RBC % Seg Neutrophils # 14.0 H Seg Neutrophils # Man Lymphocytes # (Manual) Monocytes # (Manual) Eosinophils # (Manual) APTT POC ABG pH ABG pH POC ABG pCO2 POC ABG pO2 ABG pO2 ABG HCO3 ABG O2 Saturation ABG Base Excess ABG Hemoglobin VBG pH Oxyhemoglobin Sodium Potassium 3.5 L Chloride Carbon Dioxide BUN Creatinine 0.6 L Glucose POC Glucose 69 L Lactic Acid Calcium 7.8 L Phosphorus Total Bilirubin AST ALT C-Reactive Protein Total Protein Albumin Triglycerides Amylase Lipase Urine WBC (Auto) Vancomycin Trough Crossmatch 12/31/17 12/31/17 12/31/17 05:15 09:25 10:17 WBC RBC Hgb Hct MCV MCH MCHC RDW Plt Count Lymph % (Auto) Eos % (Auto) [place] # Eos # Baso # Seg Neutrophils % Seg Neuts % (Manual) Lymphocytes % (Manual) Monocytes % (Manual) Eosinophils % (Manual) Nucleated RBC % Seg Neutrophils # Seg Neutrophils # Man Lymphocytes # (Manual) Monocytes # (Manual) Eosinophils # (Manual) APTT POC ABG pH ABG pH 7.516 H POC ABG pCO2 POC ABG pO2 ABG pO2 69.2 L ABG HCO3 28.7 H ABG O2 Saturation ABG Base Excess 5.3 H ABG Hemoglobin 6.6 L VBG pH Oxyhemoglobin 93.8 L Sodium Potassium Chloride Carbon Dioxide BUN Creatinine Glucose POC Glucose 143 H Lactic Acid Calcium Phosphorus Total Bilirubin AST ALT C-Reactive Protein Total Protein Albumin Triglycerides Amylase Lipase Urine WBC (Auto) Vancomycin Trough Crossmatch See Detail 12/31/17 12/31/17 12/31/17 14:20 18:30 21:40 WBC RBC Hgb Hct MCV MCH MCHC RDW Plt Count Lymph % (Auto) Eos % (Auto) [place] # Eos # Baso # Seg Neutrophils % Seg Neuts % (Manual) Lymphocytes % (Manual) Monocytes % (Manual) Eosinophils % (Manual) Nucleated RBC % Seg Neutrophils # Seg Neutrophils # Man Lymphocytes # (Manual) Monocytes # (Manual) Eosinophils # (Manual) APTT POC ABG pH ABG pH POC ABG pCO2 POC ABG pO2 ABG pO2 ABG HCO3 ABG O2 Saturation ABG Base Excess ABG Hemoglobin VBG pH Oxyhemoglobin Sodium Potassium Chloride Carbon Dioxide BUN Creatinine Glucose POC Glucose 175 H 137 H 182 H Lactic Acid Calcium Phosphorus Total Bilirubin AST ALT C-Reactive Protein Total Protein Albumin Triglycerides Amylase Lipase Urine WBC (Auto) Vancomycin Trough Crossmatch 12/31/17 01/01/18 01/01/18 23:34 02:09 04:00 WBC 16.4 H RBC 2.41 L Hgb 7.8 L Hct 23.6 L MCV 98 H MCH 33 H MCHC RDW Plt Count Lymph % (Auto) 10.7 L Eos % (Auto) [place] # Eos # 0.7 H Baso # 0.2 H Seg Neutrophils % 79.0 H Seg Neuts % (Manual) Lymphocytes % (Manual) Monocytes % (Manual) Eosinophils % (Manual) Nucleated RBC % Seg Neutrophils # 12.9 H Seg Neutrophils # Man Lymphocytes # (Manual) Monocytes # (Manual) Eosinophils # (Manual) APTT POC ABG pH ABG pH POC ABG pCO2 POC ABG pO2 ABG pO2 ABG HCO3 ABG O2 Saturation ABG Base Excess ABG Hemoglobin VBG pH Oxyhemoglobin Sodium Potassium Chloride Carbon Dioxide BUN Creatinine Glucose POC Glucose 132 H 117 H Lactic Acid Calcium Phosphorus Total Bilirubin AST ALT C-Reactive Protein Total Protein Albumin Triglycerides Amylase Lipase Urine WBC (Auto) Vancomycin Trough Crossmatch 01/01/18 01/01/18 01/01/18 04:00 04:04 05:32 WBC RBC Hgb Hct MCV MCH MCHC RDW Plt Count Lymph % (Auto) Eos % (Auto) [place] # Eos # Baso # Seg Neutrophils % Seg Neuts % (Manual) Lymphocytes % (Manual) Monocytes % (Manual) Eosinophils % (Manual) Nucleated RBC % Seg Neutrophils # Seg Neutrophils # Man Lymphocytes # (Manual) Monocytes # (Manual) Eosinophils # (Manual) APTT POC ABG pH ABG pH 7.458 H POC ABG pCO2 POC ABG pO2 ABG pO2 67.5 L ABG HCO3 27.5 H ABG O2 Saturation 94.4 L ABG Base Excess 3.4 H ABG Hemoglobin 7.8 L VBG pH Oxyhemoglobin 92.1 L Sodium Potassium Chloride Carbon Dioxide BUN Creatinine 0.4 L Glucose 129 H POC Glucose 129 H Lactic Acid Calcium 7.9 L Phosphorus Total Bilirubin AST ALT C-Reactive Protein Total Protein Albumin Triglycerides Amylase Lipase Urine WBC (Auto) Vancomycin Trough Crossmatch 01/01/18 01/01/18 01/01/18 10:10 12:38 17:27 WBC RBC Hgb Hct MCV MCH MCHC RDW Plt Count Lymph % (Auto) Eos % (Auto) [place] # Eos # Baso # Seg Neutrophils % Seg Neuts % (Manual) Lymphocytes % (Manual) Monocytes % (Manual) Eosinophils % (Manual) Nucleated RBC % Seg Neutrophils # Seg Neutrophils # Man Lymphocytes # (Manual) Monocytes # (Manual) Eosinophils # (Manual) APTT POC ABG pH ABG pH POC ABG pCO2 POC ABG pO2 ABG pO2 ABG HCO3 ABG O2 Saturation ABG Base Excess ABG Hemoglobin VBG pH Oxyhemoglobin Sodium Potassium Chloride Carbon Dioxide BUN Creatinine Glucose POC Glucose 155 H 179 H 152 H Lactic Acid Calcium Phosphorus Total Bilirubin AST ALT C-Reactive Protein Total Protein Albumin Triglycerides Amylase Lipase Urine WBC (Auto) Vancomycin Trough Crossmatch 01/01/18 01/02/18 01/02/18 21:36 01:42 04:10 WBC 12.1 H RBC 2.29 L Hgb 7.5 L Hct 22.7 L MCV 99 H MCH 33 H MCHC RDW Plt Count Lymph % (Auto) Eos % (Auto) 5.5 H [place] # 0.9 H Eos # 0.7 H Baso # Seg Neutrophils % Seg Neuts % (Manual) Lymphocytes % (Manual) Monocytes % (Manual) Eosinophils % (Manual) Nucleated RBC % Seg Neutrophils # 8.3 H Seg Neutrophils # Man Lymphocytes # (Manual) Monocytes # (Manual) Eosinophils # (Manual) APTT POC ABG pH ABG pH POC ABG pCO2 POC ABG pO2 ABG pO2 ABG HCO3 ABG O2 Saturation ABG Base Excess ABG Hemoglobin VBG pH Oxyhemoglobin Sodium Potassium Chloride Carbon Dioxide BUN Creatinine Glucose POC Glucose 118 H 117 H Lactic Acid Calcium Phosphorus Total Bilirubin AST ALT C-Reactive Protein Total Protein Albumin Triglycerides Amylase Lipase Urine WBC (Auto) Vancomycin Trough Crossmatch 01/02/18 01/02/18 01/02/18 04:10 04:57 13:42 WBC RBC Hgb Hct MCV MCH MCHC RDW Plt Count Lymph % (Auto) Eos % (Auto) [place] # Eos # Baso # Seg Neutrophils % Seg Neuts % (Manual) Lymphocytes % (Manual) Monocytes % (Manual) Eosinophils % (Manual) Nucleated RBC % Seg Neutrophils # Seg Neutrophils # Man Lymphocytes # (Manual) Monocytes # (Manual) Eosinophils # (Manual) APTT POC ABG pH ABG pH POC ABG pCO2 POC ABG pO2 ABG pO2 ABG HCO3 ABG O2 Saturation ABG Base Excess ABG Hemoglobin VBG pH Oxyhemoglobin Sodium Potassium Chloride 97.0 L Carbon Dioxide BUN Creatinine 0.4 L Glucose POC Glucose 107 H 133 H Lactic Acid Calcium 8.1 L Phosphorus Total Bilirubin AST ALT C-Reactive Protein Total Protein 6.0 L Albumin 2.5 L Triglycerides Amylase Lipase Urine WBC (Auto) Vancomycin Trough Crossmatch 01/02/18 01/02/18 01/03/18 17:33 22:11 02:18 WBC RBC Hgb Hct MCV MCH MCHC RDW Plt Count Lymph % (Auto) Eos % (Auto) [place] # Eos # Baso # Seg Neutrophils % Seg Neuts % (Manual) Lymphocytes % (Manual) Monocytes % (Manual) Eosinophils % (Manual) Nucleated RBC % Seg Neutrophils # Seg Neutrophils # Man Lymphocytes # (Manual) Monocytes # (Manual) Eosinophils # (Manual) APTT POC ABG pH ABG pH POC ABG pCO2 POC ABG pO2 ABG pO2 ABG HCO3 ABG O2 Saturation ABG Base Excess ABG Hemoglobin VBG pH Oxyhemoglobin Sodium Potassium Chloride Carbon Dioxide BUN Creatinine Glucose POC Glucose 146 H 171 H 162 H Lactic Acid Calcium Phosphorus Total Bilirubin AST ALT C-Reactive Protein Total Protein Albumin Triglycerides Amylase Lipase Urine WBC (Auto) Vancomycin Trough Crossmatch 01/03/18 01/03/18 01/03/18 04:56 05:21 17:20 WBC RBC Hgb Hct MCV MCH MCHC RDW Plt Count Lymph % (Auto) Eos % (Auto) [place] # Eos # Baso # Seg Neutrophils % Seg Neuts % (Manual) Lymphocytes % (Manual) Monocytes % (Manual) Eosinophils % (Manual) Nucleated RBC % Seg Neutrophils # Seg Neutrophils # Man Lymphocytes # (Manual) Monocytes # (Manual) Eosinophils # (Manual) APTT POC ABG pH ABG pH POC ABG pCO2 POC ABG pO2 ABG pO2 79.5 L ABG HCO3 31.4 H ABG O2 Saturation ABG Base Excess 6.3 H ABG Hemoglobin 10.4 L VBG pH Oxyhemoglobin 94.2 L Sodium Potassium Chloride Carbon Dioxide BUN Creatinine Glucose POC Glucose 163 H 153 H Lactic Acid Calcium Phosphorus Total Bilirubin AST ALT C-Reactive Protein Total Protein Albumin Triglycerides Amylase Lipase Urine WBC (Auto) Vancomycin Trough Crossmatch 01/03/18 01/03/18 01/04/18 17:50 19:52 00:40 WBC RBC Hgb Hct MCV MCH MCHC RDW Plt Count Lymph % (Auto) Eos % (Auto) [place] # Eos # Baso # Seg Neutrophils % Seg Neuts % (Manual) Lymphocytes % (Manual) Monocytes % (Manual) Eosinophils % (Manual) Nucleated RBC % Seg Neutrophils # Seg Neutrophils # Man Lymphocytes # (Manual) Monocytes # (Manual) Eosinophils # (Manual) APTT POC ABG pH ABG pH POC ABG pCO2 POC ABG pO2 ABG pO2 ABG HCO3 ABG O2 Saturation ABG Base Excess ABG Hemoglobin VBG pH Oxyhemoglobin Sodium Potassium Chloride Carbon Dioxide BUN Creatinine Glucose POC Glucose 157 H 147 H 158 H Lactic Acid Calcium Phosphorus Total Bilirubin AST ALT C-Reactive Protein Total Protein Albumin Triglycerides Amylase Lipase Urine WBC (Auto) Vancomycin Trough Crossmatch 01/04/18 01/04/18 01/04/18 04:01 05:13 06:12 WBC 11.5 H RBC 2.95 L Hgb 9.8 L Hct 29.5 L D MCV 100 H MCH 33 H MCHC RDW Plt Count Lymph % (Auto) Eos % (Auto) [place] # Eos # Baso # Seg Neutrophils % Seg Neuts % (Manual) Lymphocytes % (Manual) Monocytes % (Manual) Eosinophils % (Manual) 6.0 H Nucleated RBC % Seg Neutrophils # Seg Neutrophils # Man Lymphocytes # (Manual) Monocytes # (Manual) Eosinophils # (Manual) 0.7 H APTT POC ABG pH ABG pH 7.498 H POC ABG pCO2 POC ABG pO2 ABG pO2 129.5 H ABG HCO3 30.1 H ABG O2 Saturation ABG Base Excess 6.4 H ABG Hemoglobin 9.3 L VBG pH Oxyhemoglobin Sodium Potassium Chloride Carbon Dioxide BUN Creatinine Glucose POC Glucose 163 H Lactic Acid Calcium Phosphorus Total Bilirubin AST ALT C-Reactive Protein Total Protein Albumin Triglycerides Amylase Lipase Urine WBC (Auto) Vancomycin Trough Crossmatch 01/04/18 01/04/18 01/04/18 06:12 10:55 14:29 WBC RBC Hgb Hct MCV MCH MCHC RDW Plt Count Lymph % (Auto) Eos % (Auto) [place] # Eos # Baso # Seg Neutrophils % Seg Neuts % (Manual) Lymphocytes % (Manual) Monocytes % (Manual) Eosinophils % (Manual) Nucleated RBC % Seg Neutrophils # Seg Neutrophils # Man Lymphocytes # (Manual) Monocytes # (Manual) Eosinophils # (Manual) APTT POC ABG pH ABG pH POC ABG pCO2 POC ABG pO2 ABG pO2 ABG HCO3 ABG O2 Saturation ABG Base Excess ABG Hemoglobin VBG pH Oxyhemoglobin Sodium Potassium Chloride Carbon Dioxide BUN Creatinine 0.5 L Glucose 174 H POC Glucose 187 H 144 H Lactic Acid Calcium Phosphorus Total Bilirubin AST 41 H ALT C-Reactive Protein Total Protein Albumin 2.9 L Triglycerides Amylase Lipase Urine WBC (Auto) Vancomycin Trough Crossmatch 01/04/18 01/04/18 01/05/18 17:25 21:56 01:59 WBC RBC Hgb Hct MCV MCH MCHC RDW Plt Count Lymph % (Auto) Eos % (Auto) [place] # Eos # Baso # Seg Neutrophils % Seg Neuts % (Manual) Lymphocytes % (Manual) Monocytes % (Manual) Eosinophils % (Manual) Nucleated RBC % Seg Neutrophils # Seg Neutrophils # Man Lymphocytes # (Manual) Monocytes # (Manual) Eosinophils # (Manual) APTT POC ABG pH ABG pH POC ABG pCO2 POC ABG pO2 ABG pO2 ABG HCO3 ABG O2 Saturation ABG Base Excess ABG Hemoglobin VBG pH Oxyhemoglobin Sodium Potassium Chloride Carbon Dioxide BUN Creatinine Glucose POC Glucose 156 H 171 H 162 H Lactic Acid Calcium Phosphorus Total Bilirubin AST ALT C-Reactive Protein Total Protein Albumin Triglycerides Amylase Lipase Urine WBC (Auto) Vancomycin Trough Crossmatch 01/05/18 01/05/18 01/05/18 03:50 06:00 06:07 WBC RBC Hgb Hct MCV MCH MCHC RDW Plt Count Lymph % (Auto) Eos % (Auto) [place] # Eos # Baso # Seg Neutrophils % Seg Neuts % (Manual) Lymphocytes % (Manual) Monocytes % (Manual) Eosinophils % (Manual) Nucleated RBC % Seg Neutrophils # Seg Neutrophils # Man Lymphocytes # (Manual) Monocytes # (Manual) Eosinophils # (Manual) APTT POC ABG pH ABG pH POC ABG pCO2 POC ABG pO2 ABG pO2 64.6 L ABG HCO3 30.2 H ABG O2 Saturation 91.3 L ABG Base Excess 5.5 H ABG Hemoglobin 10.1 L VBG pH Oxyhemoglobin 89.0 L Sodium Potassium Chloride Carbon Dioxide BUN Creatinine 0.4 L Glucose 144 H POC Glucose 136 H Lactic Acid Calcium Phosphorus Total Bilirubin AST ALT C-Reactive Protein Total Protein Albumin Triglycerides Amylase Lipase Urine WBC (Auto) Vancomycin Trough Crossmatch 01/05/18 01/05/18 01/05/18 10:46 14:03 17:31 WBC RBC Hgb Hct MCV MCH MCHC RDW Plt Count Lymph % (Auto) Eos % (Auto) [place] # Eos # Baso # Seg Neutrophils % Seg Neuts % (Manual) Lymphocytes % (Manual) Monocytes % (Manual) Eosinophils % (Manual) Nucleated RBC % Seg Neutrophils # Seg Neutrophils # Man Lymphocytes # (Manual) Monocytes # (Manual) Eosinophils # (Manual) APTT POC ABG pH ABG pH POC ABG pCO2 POC ABG pO2 ABG pO2 ABG HCO3 ABG O2 Saturation ABG Base Excess ABG Hemoglobin VBG pH Oxyhemoglobin Sodium Potassium Chloride Carbon Dioxide BUN Creatinine Glucose POC Glucose 147 H 141 H 192 H Lactic Acid Calcium Phosphorus Total Bilirubin AST ALT C-Reactive Protein Total Protein Albumin Triglycerides Amylase Lipase Urine WBC (Auto) Vancomycin Trough Crossmatch 01/05/18 01/05/18 01/06/18 22:12 Unknown 01:58 WBC RBC Hgb Hct MCV MCH MCHC RDW Plt Count Lymph % (Auto) Eos % (Auto) [place] # Eos # Baso # Seg Neutrophils % Seg Neuts % (Manual) Lymphocytes % (Manual) Monocytes % (Manual) Eosinophils % (Manual) Nucleated RBC % Seg Neutrophils # Seg Neutrophils # Man Lymphocytes # (Manual) Monocytes # (Manual) Eosinophils # (Manual) APTT POC ABG pH ABG pH 7.463 H POC ABG pCO2 POC ABG pO2 ABG pO2 74.0 L ABG HCO3 29.4 H ABG O2 Saturation ABG Base Excess 5.2 H ABG Hemoglobin 10.0 L VBG pH Oxyhemoglobin 93.4 L Sodium Potassium Chloride Carbon Dioxide BUN Creatinine Glucose POC Glucose 209 H 138 H Lactic Acid Calcium Phosphorus Total Bilirubin AST ALT C-Reactive Protein Total Protein Albumin Triglycerides Amylase Lipase Urine WBC (Auto) Vancomycin Trough Crossmatch 01/06/18 01/06/18 01/06/18 03:14 05:30 05:30 WBC 12.6 H RBC 3.16 L Hgb 10.4 L Hct 31.7 L MCV 100 H MCH 33 H MCHC RDW 15.5 H Plt Count Lymph % (Auto) Eos % (Auto) [place] # Eos # Baso # Seg Neutrophils % Seg Neuts % (Manual) 72.0 H Lymphocytes % (Manual) Monocytes % (Manual) 9.0 H Eosinophils % (Manual) Nucleated RBC % 1.0 H Seg Neutrophils # Seg Neutrophils # Man 9.1 H Lymphocytes # (Manual) Monocytes # (Manual) 1.1 H Eosinophils # (Manual) APTT POC ABG pH ABG pH POC ABG pCO2 POC ABG pO2 ABG pO2 ABG HCO3 28.8 H ABG O2 Saturation ABG Base Excess 4.2 H ABG Hemoglobin 9.3 L VBG pH Oxyhemoglobin 94.7 L Sodium 136 L Potassium Chloride 94.2 L Carbon Dioxide BUN Creatinine 0.4 L Glucose 146 H POC Glucose Lactic Acid Calcium Phosphorus Total Bilirubin AST ALT C-Reactive Protein Total Protein Albumin 3.1 L Triglycerides Amylase Lipase Urine WBC (Auto) Vancomycin Trough Crossmatch 01/06/18 01/06/18 01/06/18 05:42 10:00 14:40 WBC RBC Hgb Hct MCV MCH MCHC RDW Plt Count Lymph % (Auto) Eos % (Auto) [place] # Eos # Baso # Seg Neutrophils % Seg Neuts % (Manual) Lymphocytes % (Manual) Monocytes % (Manual) Eosinophils % (Manual) Nucleated RBC % Seg Neutrophils # Seg Neutrophils # Man Lymphocytes # (Manual) Monocytes # (Manual) Eosinophils # (Manual) APTT POC ABG pH ABG pH POC ABG pCO2 POC ABG pO2 ABG pO2 ABG HCO3 ABG O2 Saturation ABG Base Excess ABG Hemoglobin VBG pH Oxyhemoglobin Sodium Potassium Chloride Carbon Dioxide BUN Creatinine Glucose POC Glucose 158 H 155 H 115 H Lactic Acid Calcium Phosphorus Total Bilirubin AST ALT C-Reactive Protein Total Protein Albumin Triglycerides Amylase Lipase Urine WBC (Auto) Vancomycin Trough Crossmatch 01/06/18 01/06/18 01/07/18 17:45 21:59 05:29 WBC RBC Hgb Hct MCV MCH MCHC RDW Plt Count Lymph % (Auto) Eos % (Auto) [place] # Eos # Baso # Seg Neutrophils % Seg Neuts % (Manual) Lymphocytes % (Manual) Monocytes % (Manual) Eosinophils % (Manual) Nucleated RBC % Seg Neutrophils # Seg Neutrophils # Man Lymphocytes # (Manual) Monocytes # (Manual) Eosinophils # (Manual) APTT POC ABG pH ABG pH POC ABG pCO2 POC ABG pO2 ABG pO2 ABG HCO3 ABG O2 Saturation ABG Base Excess ABG Hemoglobin VBG pH Oxyhemoglobin Sodium Potassium Chloride Carbon Dioxide BUN Creatinine Glucose POC Glucose 156 H 177 H 179 H Lactic Acid Calcium Phosphorus Total Bilirubin AST ALT C-Reactive Protein Total Protein Albumin Triglycerides Amylase Lipase Urine WBC (Auto) Vancomycin Trough Crossmatch 01/07/18 01/07/18 01/07/18 10:00 14:32 18:05 WBC RBC Hgb Hct MCV MCH MCHC RDW Plt Count Lymph % (Auto) Eos % (Auto) [place] # Eos # Baso # Seg Neutrophils % Seg Neuts % (Manual) Lymphocytes % (Manual) Monocytes % (Manual) Eosinophils % (Manual) Nucleated RBC % Seg Neutrophils # Seg Neutrophils # Man Lymphocytes # (Manual) Monocytes # (Manual) Eosinophils # (Manual) APTT POC ABG pH ABG pH POC ABG pCO2 POC ABG pO2 ABG pO2 ABG HCO3 ABG O2 Saturation ABG Base Excess ABG Hemoglobin VBG pH Oxyhemoglobin Sodium Potassium Chloride Carbon Dioxide BUN Creatinine Glucose POC Glucose 131 H 177 H 143 H Lactic Acid Calcium Phosphorus Total Bilirubin AST ALT C-Reactive Protein Total Protein Albumin Triglycerides Amylase Lipase Urine WBC (Auto) Vancomycin Trough Crossmatch 01/07/18 01/08/18 01/08/18 22:11 02:26 05:37 WBC RBC Hgb Hct MCV MCH MCHC RDW Plt Count Lymph % (Auto) Eos % (Auto) [place] # Eos # Baso # Seg Neutrophils % Seg Neuts % (Manual) Lymphocytes % (Manual) Monocytes % (Manual) Eosinophils % (Manual) Nucleated RBC % Seg Neutrophils # Seg Neutrophils # Man Lymphocytes # (Manual) Monocytes # (Manual) Eosinophils # (Manual) APTT POC ABG pH ABG pH POC ABG pCO2 POC ABG pO2 ABG pO2 ABG HCO3 ABG O2 Saturation ABG Base Excess ABG Hemoglobin VBG pH Oxyhemoglobin Sodium Potassium Chloride Carbon Dioxide BUN Creatinine Glucose POC Glucose 133 H 194 H 106 H Lactic Acid Calcium Phosphorus Total Bilirubin AST ALT C-Reactive Protein Total Protein Albumin Triglycerides Amylase Lipase Urine WBC (Auto) Vancomycin Trough Crossmatch 01/08/18 01/08/18 01/08/18 09:41 10:45 10:45 WBC 11.6 H RBC 3.21 L Hgb 10.5 L Hct 32.0 L MCV 100 H MCH 33 H MCHC RDW 15.7 H Plt Count Lymph % (Auto) Eos % (Auto) [place] # Eos # Baso # Seg Neutrophils % Seg Neuts % (Manual) Lymphocytes % (Manual) Monocytes % (Manual) Eosinophils % (Manual) Nucleated RBC % Seg Neutrophils # Seg Neutrophils # Man Lymphocytes # (Manual) Monocytes # (Manual) Eosinophils # (Manual) APTT POC ABG pH ABG pH POC ABG pCO2 POC ABG pO2 ABG pO2 ABG HCO3 ABG O2 Saturation ABG Base Excess ABG Hemoglobin VBG pH Oxyhemoglobin Sodium Potassium Chloride 96.4 L Carbon Dioxide BUN Creatinine 0.4 L Glucose 146 H POC Glucose 142 H Lactic Acid Calcium Phosphorus Total Bilirubin AST ALT C-Reactive Protein Total Protein Albumin Triglycerides Amylase Lipase Urine WBC (Auto) Vancomycin Trough Crossmatch 01/08/18 01/08/18 01/08/18 14:31 17:20 21:46 WBC RBC Hgb Hct MCV MCH MCHC RDW Plt Count Lymph % (Auto) Eos % (Auto) [place] # Eos # Baso # Seg Neutrophils % Seg Neuts % (Manual) Lymphocytes % (Manual) Monocytes % (Manual) Eosinophils % (Manual) Nucleated RBC % Seg Neutrophils # Seg Neutrophils # Man Lymphocytes # (Manual) Monocytes # (Manual) Eosinophils # (Manual) APTT POC ABG pH ABG pH POC ABG pCO2 POC ABG pO2 ABG pO2 ABG HCO3 ABG O2 Saturation ABG Base Excess ABG Hemoglobin VBG pH Oxyhemoglobin Sodium Potassium Chloride Carbon Dioxide BUN Creatinine Glucose POC Glucose 158 H 160 H 166 H Lactic Acid Calcium Phosphorus Total Bilirubin AST ALT C-Reactive Protein Total Protein Albumin Triglycerides Amylase Lipase Urine WBC (Auto) Vancomycin Trough Crossmatch 01/09/18 01/09/18 01/09/18 02:01 04:30 04:30 WBC RBC 3.21 L Hgb 10.9 L Hct 31.7 L MCV 99 H MCH 34 H MCHC RDW 15.8 H Plt Count Lymph % (Auto) Eos % (Auto) [place] # Eos # Baso # Seg Neutrophils % Seg Neuts % (Manual) Lymphocytes % (Manual) Monocytes % (Manual) Eosinophils % (Manual) Nucleated RBC % Seg Neutrophils # Seg Neutrophils # Man Lymphocytes # (Manual) Monocytes # (Manual) Eosinophils # (Manual) APTT POC ABG pH ABG pH POC ABG pCO2 POC ABG pO2 ABG pO2 ABG HCO3 ABG O2 Saturation ABG Base Excess ABG Hemoglobin VBG pH Oxyhemoglobin Sodium 135 L Potassium Chloride 93.8 L Carbon Dioxide BUN Creatinine 0.5 L Glucose 137 H POC Glucose 155 H Lactic Acid Calcium Phosphorus Total Bilirubin AST ALT C-Reactive Protein Total Protein Albumin Triglycerides Amylase Lipase Urine WBC (Auto) Vancomycin Trough Crossmatch 01/09/18 01/09/18 01/09/18 05:42 10:41 14:01 WBC RBC Hgb Hct MCV MCH MCHC RDW Plt Count Lymph % (Auto) Eos % (Auto) [place] # Eos # Baso # Seg Neutrophils % Seg Neuts % (Manual) Lymphocytes % (Manual) Monocytes % (Manual) Eosinophils % (Manual) Nucleated RBC % Seg Neutrophils # Seg Neutrophils # Man Lymphocytes # (Manual) Monocytes # (Manual) Eosinophils # (Manual) APTT POC ABG pH ABG pH POC ABG pCO2 POC ABG pO2 ABG pO2 ABG HCO3 ABG O2 Saturation ABG Base Excess ABG Hemoglobin VBG pH Oxyhemoglobin Sodium Potassium Chloride Carbon Dioxide BUN Creatinine Glucose POC Glucose 142 H 187 H 138 H Lactic Acid Calcium Phosphorus Total Bilirubin AST ALT C-Reactive Protein Total Protein Albumin Triglycerides Amylase Lipase Urine WBC (Auto) Vancomycin Trough Crossmatch 01/09/18 01/09/18 01/10/18 18:09 21:09 02:06 WBC RBC Hgb Hct MCV MCH MCHC RDW Plt Count Lymph % (Auto) Eos % (Auto) [place] # Eos # Baso # Seg Neutrophils % Seg Neuts % (Manual) Lymphocytes % (Manual) Monocytes % (Manual) Eosinophils % (Manual) Nucleated RBC % Seg Neutrophils # Seg Neutrophils # Man Lymphocytes # (Manual) Monocytes # (Manual) Eosinophils # (Manual) APTT POC ABG pH ABG pH POC ABG pCO2 POC ABG pO2 ABG pO2 ABG HCO3 ABG O2 Saturation ABG Base Excess ABG Hemoglobin VBG pH Oxyhemoglobin Sodium Potassium Chloride Carbon Dioxide BUN Creatinine Glucose POC Glucose 143 H 188 H 160 H Lactic Acid Calcium Phosphorus Total Bilirubin AST ALT C-Reactive Protein Total Protein Albumin Triglycerides Amylase Lipase Urine WBC (Auto) Vancomycin Trough Crossmatch 01/10/18 01/10/18 01/10/18 05:58 09:54 13:58 WBC RBC Hgb Hct MCV MCH MCHC RDW Plt Count Lymph % (Auto) Eos % (Auto) [place] # Eos # Baso # Seg Neutrophils % Seg Neuts % (Manual) Lymphocytes % (Manual) Monocytes % (Manual) Eosinophils % (Manual) Nucleated RBC % Seg Neutrophils # Seg Neutrophils # Man Lymphocytes # (Manual) Monocytes # (Manual) Eosinophils # (Manual) APTT POC ABG pH ABG pH POC ABG pCO2 POC ABG pO2 ABG pO2 ABG HCO3 ABG O2 Saturation ABG Base Excess ABG Hemoglobin VBG pH Oxyhemoglobin Sodium Potassium Chloride Carbon Dioxide BUN Creatinine Glucose POC Glucose 134 H 162 H 152 H Lactic Acid Calcium Phosphorus Total Bilirubin AST ALT C-Reactive Protein Total Protein Albumin Triglycerides Amylase Lipase Urine WBC (Auto) Vancomycin Trough Crossmatch 01/10/18 01/10/18 01/11/18 16:56 21:57 02:22 WBC RBC Hgb Hct MCV MCH MCHC RDW Plt Count Lymph % (Auto) Eos % (Auto) [place] # Eos # Baso # Seg Neutrophils % Seg Neuts % (Manual) Lymphocytes % (Manual) Monocytes % (Manual) Eosinophils % (Manual) Nucleated RBC % Seg Neutrophils # Seg Neutrophils # Man Lymphocytes # (Manual) Monocytes # (Manual) Eosinophils # (Manual) APTT POC ABG pH ABG pH POC ABG pCO2 POC ABG pO2 ABG pO2 ABG HCO3 ABG O2 Saturation ABG Base Excess ABG Hemoglobin VBG pH Oxyhemoglobin Sodium Potassium Chloride Carbon Dioxide BUN Creatinine Glucose POC Glucose 161 H 161 H 159 H Lactic Acid Calcium Phosphorus Total Bilirubin AST ALT C-Reactive Protein Total Protein Albumin Triglycerides Amylase Lipase Urine WBC (Auto) Vancomycin Trough Crossmatch 01/11/18 01/11/18 01/11/18 06:19 10:23 11:21 WBC 12.7 H RBC 3.50 L Hgb 11.5 L Hct 34.8 L MCV 99 H MCH 33 H MCHC RDW Plt Count Lymph % (Auto) Eos % (Auto) [place] # Eos # Baso # Seg Neutrophils % Seg Neuts % (Manual) Lymphocytes % (Manual) Monocytes % (Manual) Eosinophils % (Manual) Nucleated RBC % Seg Neutrophils # Seg Neutrophils # Man Lymphocytes # (Manual) Monocytes # (Manual) Eosinophils # (Manual) APTT POC ABG pH ABG pH POC ABG pCO2 POC ABG pO2 ABG pO2 ABG HCO3 ABG O2 Saturation ABG Base Excess ABG Hemoglobin VBG pH Oxyhemoglobin Sodium Potassium Chloride Carbon Dioxide BUN Creatinine Glucose POC Glucose 174 H 172 H Lactic Acid Calcium Phosphorus Total Bilirubin AST ALT C-Reactive Protein Total Protein Albumin Triglycerides Amylase Lipase Urine WBC (Auto) Vancomycin Trough Crossmatch 01/11/18 01/11/18 01/11/18 11:21 14:00 17:19 WBC RBC Hgb Hct MCV MCH MCHC RDW Plt Count Lymph % (Auto) Eos % (Auto) [place] # Eos # Baso # Seg Neutrophils % Seg Neuts % (Manual) Lymphocytes % (Manual) Monocytes % (Manual) Eosinophils % (Manual) Nucleated RBC % Seg Neutrophils # Seg Neutrophils # Man Lymphocytes # (Manual) Monocytes # (Manual) Eosinophils # (Manual) APTT POC ABG pH ABG pH POC ABG pCO2 POC ABG pO2 ABG pO2 ABG HCO3 ABG O2 Saturation ABG Base Excess ABG Hemoglobin VBG pH Oxyhemoglobin Sodium 133 L Potassium Chloride 92.9 L Carbon Dioxide BUN Creatinine 0.4 L Glucose 156 H POC Glucose 152 H 177 H Lactic Acid Calcium Phosphorus Total Bilirubin AST ALT C-Reactive Protein Total Protein Albumin Triglycerides Amylase Lipase Urine WBC (Auto) Vancomycin Trough Crossmatch 01/11/18 01/12/18 01/12/18 22:20 02:09 05:50 WBC RBC Hgb Hct MCV MCH MCHC RDW Plt Count Lymph % (Auto) Eos % (Auto) [place] # Eos # Baso # Seg Neutrophils % Seg Neuts % (Manual) Lymphocytes % (Manual) Monocytes % (Manual) Eosinophils % (Manual) Nucleated RBC % Seg Neutrophils # Seg Neutrophils # Man Lymphocytes # (Manual) Monocytes # (Manual) Eosinophils # (Manual) APTT POC ABG pH ABG pH POC ABG pCO2 POC ABG pO2 ABG pO2 ABG HCO3 ABG O2 Saturation ABG Base Excess ABG Hemoglobin VBG pH Oxyhemoglobin Sodium Potassium Chloride Carbon Dioxide BUN Creatinine Glucose POC Glucose 208 H 179 H 165 H Lactic Acid Calcium Phosphorus Total Bilirubin AST ALT C-Reactive Protein Total Protein Albumin Triglycerides Amylase Lipase Urine WBC (Auto) Vancomycin Trough Crossmatch
[2018-01-12] MEDS: LANTUS SUB-Q SCH (10:06)
[2018-01-12] MEDS: PEPCID PO SCH ×2 (10:07→21:50)
[2018-01-12] MEDS: POTASSIUM CHLORIDE PO SCH (10:07)
[2018-01-12] MEDS: VITAMIN B-1 PO SCH (10:07)
[2018-01-12] MEDS: LOPRESSOR PO SCH ×2 (10:07→21:50)
[2018-01-12] MEDS: SODIUM CHLORIDE FLUSH SYRINGE 10 ML IV SCH (10:09)
--- NOTE | 2018-01-12 12:51 | Progress Note ---
Assessment and Plan Assessment: 1) Severe Sepsis: fever resolved,still mild leukocytosis. Etiology most likely complicated H influenza bacteremia +/- pneumonia +/- ? intrabdominal source. -blood cx negative -US legs No DVT -Abd US negative 2) H influenza bacteremia: likely from pneumonia. TTE neg 3) Complicated Bilateral pneumonia: etiology H influenza - should r/o empyema or abscess -CXR showed [place] pneumonia -Sputum 12/20 showed usual resp angelika -HIV neg -JERMAIN and ANCA negative -C3/C4 normal -CRP=7.1 -Strep pneumoniae not detected -Legionella not detected -tracheal aspirate - usual resp angelika -s/p 12 days cefepime and flagyl until 12/31 -s/p 7 days zyvox until 12/31 -Chest CT 01/01 showed extensive bilateral ASD -Abd CT neg 4) Acute respiratory failure: re-intubated now on CPAP 5) Thrombocytopenia : from sepsis, resolved 6) Elevated LFTs: resolved, etio. ?sepsis, ETOH. Viral hepatitis all negative. 7) DM: uncontrolled Plan: -monitor off antibiotics -consider trach I am signing off, call me with questions. Thank you for your consultation, will follow up with you. Mariel Corrigan MD Infectious Diseases Specialist [facility] ([facility] M [phone] O [phone] Subjective Date of service: 01/12/18 Principal diagnosis: ARDS,Respiratory failure,pneumonia Interval history: Remains sedated intubated. Tmax 98.7. On CPAP tolerating well. Microbiology: Blood cultures: 12/12 H influenza 1 of 4 bottles 12/15 neg 12/17 neg 12/23 neg 12/26 neg 12/30 ngtd Respiratory cultures: 12/13 - usual resp angelika 12/20 tracheal asp - usual resp angelika Current Antimicrobials: Previous Antimicrobials: Zosyn Levaquin 12/13 Clindamycin 12/17 vanco 12/17-12/25 zyvox 11/27-12/31 cefepime 12/20-12/31 flagyl 12/20-12/31 Objective - Exam Narrative Exam: General appearance: sedated on the vent on CPAP Eyes: anicteric sclerae, moist conjunctivae; no lid-lag; PERRLA HENT: Atraumatic; oropharynx +ETT Neck: Trachea midline; supple, no thyromegaly or lymphadenopathy Lungs: [place] rhonchi CV:tachy Abdomen: Soft, distended tense Extremities: legs edema Skin: no rash Psych: sedated. Neuro: sedated Lines: right PICC 12/20 - Constitutional Vitals: Vital Signs Temp Pulse Resp BP Pulse Ox 98.7 F 88 26 H 136/88 100 01/12/18 08:00 01/12/18 11:00 01/12/18 11:00 01/12/18 11:00 01/12/18 11:00 Temperature -Last 24 Hours Temperature 98.7 F Temperature 98.7 F Temperature 98.6 F Temperature 98.4 F Temperature 98.2 F Temperature 98.3 F - Labs CBC & Chem 7: 01/11/18 11:21 01/11/18 11:21 Labs: Abnormal lab results 01/11/18 01/11/18 01/11/18 Range/Units 06:19 10:23 14:00 POC Glucose 174 H 172 H 152 H (70-105) 01/11/18 01/11/18 01/12/18 Range/Units 17:19 22:20 02:09 POC Glucose 177 H 208 H 179 H (70-105) 01/12/18 01/12/18 Range/Units 05:50 09:31 POC Glucose 165 H 142 H (70-105)
[2018-01-12] MEDS: LOVENOX SUB-Q SCH (21:50)
[2018-01-13] MEDS: LIBRIUM PO SCH ×4 (00:06→18:06)
[2018-01-13] MEDS: SODIUM CHLORIDE FLUSH SYRINGE 10 ML IV SCH ×2 (00:08→10:49)
[2018-01-13] MEDS: HumaLOG SUB-Q SCH ×4 (02:52→20:00)
--- NOTE | 2018-01-13 03:21 | XRay Report ---
FINAL REPORT PROCEDURE: XR CHEST 1V AP TECHNIQUE: Chest radiograph anteroposterior view. CPT 94770 HISTORY: Hypoxemia COMPARISON: No prior studies are available for comparison. FINDINGS: Heart: Normal. Mediastinum/Vessels: Normal. Lungs/Pleural space: Normal. Bony thorax: No acute osseous abnormality. Life support devices: The endotracheal tube ends 5 centimeters above the valentín. A nasogastric tube ends below the hemidiaphragms. Right PICC catheter ends in the SVC. IMPRESSION: There is no evidence of an acute infiltrate or effusion. No pneumothorax. Tubes and lines are properly positioned..
[2018-01-13 05:20] LABS: Hematocrit 34.1 % (35.5-45.6); Hemoglobin 11.9 gm/dl (11.8-15.2); Mean Corpuscular HGB Conc 35 % (32-34); Mean Corpuscular Hemoglobin 34 pg (28-32); Mean Corpuscular Volume 98 fl (84-94); Platelet Count 357 K/mm3 (140-440); Red Cell Distribution Width 14.9 % (13.2-15.2)
[2018-01-13 05:43] LABS: BUN/Creatinine Ratio 40; Blood Urea Nitrogen 16 mg/dL (9-20); Calcium 9.8 mg/dL (8.4-10.2); Hemolysis Index 3
[2018-01-13] MEDS: DUONEB *Not for PRN Use IH SCH ×4 (08:12→20:19)
--- NOTE | 2018-01-13 08:22 | Progress Note ---
Assessment and Plan Assessment and plan: Acute hypoxic hypercapnic respiratory failure : Still intubated, on ventilator Vent dependent, unable to wean Continue Vent support, pulmonary following Considering tracheostomy and PEG. has not decided yet. Says she has to talk to family Anemia; s/p 1 Unit PRBC this admission. Hemoglobin 11.9 today. Sepsis Off antibiotics ,s/p Zyvox, Ccefepime and Flagyl, ID following Aspiration pneumonia. Completed Antibiotics ARDS. Still on vent Alcohol abuse: Continue thiamine, Librium as needed Hyponatremia. Sodium 136. Monitor. Thrombocytopenia, resolved. Plt count normal Moderate to Severe protein calorie malnutrition; nutrition supplements, tube feeding. Hypotension resolved. Off Levophed Diabetes mellitus type 2. On Lantus and sliding scale. DVT prophylaxis: Lovenox and SCDs Still unable to wean off Vent History Interval history: Patient still intubated, Still on ventilator, Still unable to wean of vent Hospitalist Physical - Physical exam Narrative exam: Gen appearance: Not in acute distress, lying in bed, Obese,intubated HEENT:Normocephalic, atraumatic Neck:supple, no JVD Lungs: Clear to auscultation bilaterally, no crackles , no wheeze Heart: S1 and S2 regular, no murmurs, rubs or gallop Abdomen: soft, non tender, non distended, normal bowel sounds, Ext: No edema, no clubbing, no cyanosis. Neuro: Intubated, sedated, - Constitutional Vitals: Temp Pulse Resp BP Pulse Ox 98.3 F 92 H 18 114/75 99 01/13/18 07:37 01/13/18 08:00 01/13/18 08:00 01/13/18 08:00 01/13/18 07:31 General appearance: Present: obese, other (intubated on vent) Results - Labs CBC & Chem 7: 01/13/18 05:00 01/13/18 05:00 Labs: Laboratory Last Values WBC 10.8 K/mm3 (4.5-11.0) 01/13/18 05:00 RBC 3.50 M/mm3 (3.65-5.03) L 01/13/18 05:00 Hgb 11.9 gm/dl (11.8-15.2) 01/13/18 05:00 Hct 34.1 % (35.5-45.6) L 01/13/18 05:00 MCV 98 fl (84-94) H 01/13/18 05:00 MCH 34 pg (28-32) H 01/13/18 05:00 MCHC 35 % (32-34) H 01/13/18 05:00 RDW 14.9 % (13.2-15.2) 01/13/18 05:00 Plt Count 357 K/mm3 (140-440) 01/13/18 05:00 Lymph % (Auto) 18.5 % (13.4-35.0) 01/02/18 04:10 [place] % (Auto) 7.1 % (0.0-7.3) 01/02/18 04:10 Eos % (Auto) 5.5 % (0.0-4.3) H 01/02/18 04:10 Baso % (Auto) 0.3 % (0.0-1.8) 01/02/18 04:10 Lymph # 2.2 K/mm3 (1.2-5.4) 01/02/18 04:10 [place] # 0.9 K/mm3 (0.0-0.8) H 01/02/18 04:10 Eos # 0.7 K/mm3 (0.0-0.4) H 01/02/18 04:10 Baso # 0.0 K/mm3 (0.0-0.1) 01/02/18 04:10 Add Manual Diff Complete 01/06/18 05:30 Total Counted 100 01/06/18 05:30 Seg Neutrophils % 68.6 % (40.0-70.0) 01/02/18 04:10 Seg Neuts % (Manual) 72.0 % (40.0-70.0) H 01/06/18 05:30 Band Neutrophils % 0 % 01/06/18 05:30 Lymphocytes % (Manual) 17.0 % (13.4-35.0) 01/06/18 05:30 Reactive Lymphs % (Man) 0 % 01/06/18 05:30 Monocytes % (Manual) 9.0 % (0.0-7.3) H 01/06/18 05:30 Eosinophils % (Manual) 2.0 % (0.0-4.3) 01/06/18 05:30 Basophils % (Manual) 0 % (0.0-1.8) 01/06/18 05:30 Metamyelocytes % 0 % 01/06/18 05:30 Myelocytes % 0 % 01/06/18 05:30 Promyelocytes % 0 % 01/06/18 05:30 Blast Cells % 0 % 01/06/18 05:30 Nucleated RBC % 1.0 % (0.0-0.9) H 01/06/18 05:30 Seg Neutrophils # 8.3 K/mm3 (1.8-7.7) H 01/02/18 04:10 Seg Neutrophils # Man 9.1 K/mm3 (1.8-7.7) H 01/06/18 05:30 Band Neutrophils # 0.0 K/mm3 01/06/18 05:30 Lymphocytes # (Manual) 2.1 K/mm3 (1.2-5.4) 01/06/18 05:30 Abs React Lymphs (Man) 0.0 K/mm3 01/06/18 05:30 Monocytes # (Manual) 1.1 K/mm3 (0.0-0.8) H 01/06/18 05:30 Eosinophils # (Manual) 0.3 K/mm3 (0.0-0.4) 01/06/18 05:30 Basophils # (Manual) 0.0 K/mm3 (0.0-0.1) 01/06/18 05:30 Metamyelocytes # 0.0 K/mm3 01/06/18 05:30 Myelocytes # 0.0 K/mm3 01/06/18 05:30 Promyelocytes # 0.0 K/mm3 01/06/18 05:30 Blast Cells # 0.0 K/mm3 01/06/18 05:30 Pathologist Review 12/23/17 09:25 WBC Morphology Not Reportable 01/06/18 05:30 Hypersegmented Neuts Not Reportable 01/06/18 05:30 Hyposegmented Neuts Not Reportable 01/06/18 05:30 Hypogranular Neuts Not Reportable 01/06/18 05:30 Smudge Cells Not Reportable 01/06/18 05:30 Toxic Granulation Not Reportable 01/06/18 05:30 Toxic Vacuolation Not Reportable 01/06/18 05:30 Dohle Bodies Not Reportable 01/06/18 05:30 Pelger-Huet Anomaly Not Reportable 01/06/18 05:30 Mary Rods Not Reportable 01/06/18 05:30 Platelet Estimate Appears normal 01/06/18 05:30 Clumped Platelets Not Reportable 01/06/18 05:30 Plt Clumps, EDTA Not Reportable 01/06/18 05:30 Large Platelets Not Reportable 01/06/18 05:30 Giant Platelets Not Reportable 01/06/18 05:30 Platelet Satelliting Not Reportable 01/06/18 05:30 Plt Morphology Comment Not Reportable 01/06/18 05:30 RBC Morphology Not Reportable 01/06/18 05:30 Dimorphic RBCs Not Reportable 01/06/18 05:30 Polychromasia 1+ 01/06/18 05:30 Hypochromasia Not Reportable 01/06/18 05:30 Poikilocytosis Not Reportable 01/06/18 05:30 Anisocytosis 1+ 01/06/18 05:30 Microcytosis Not Reportable 01/06/18 05:30 Macrocytosis Few 01/06/18 05:30 Spherocytes Not Reportable 01/06/18 05:30 Pappenheimer Bodies Not Reportable 01/06/18 05:30 Sickle Cells Not Reportable 01/06/18 05:30 Target Cells Not Reportable 01/06/18 05:30 Tear Drop Cells Not Reportable 01/06/18 05:30 Ovalocytes Not Reportable 01/06/18 05:30 Stomatocytes 1+ 01/06/18 05:30 Helmet Cells Not Reportable 01/06/18 05:30 Arceo-Narberth Bodies Not Reportable 01/06/18 05:30 [place] Rings Not Reportable 01/06/18 05:30 Chidi Cells Not Reportable 01/06/18 05:30 Bite Cells Not Reportable 01/06/18 05:30 Crenated Cell Not Reportable 01/06/18 05:30 Elliptocytes Not Reportable 01/06/18 05:30 Acanthocytes (Spur) Not Reportable 01/06/18 05:30 Rouleaux Not Reportable 01/06/18 05:30 Hemoglobin C Crystals Not Reportable 01/06/18 05:30 Schistocytes Not Reportable 01/06/18 05:30 Malaria parasites Not Reportable 01/06/18 05:30 Vipul Bodies Not Reportable 01/06/18 05:30 Hem Pathologist Commnt No 01/06/18 05:30 PT 14.9 Sec. (12.2-14.9) 12/15/17 04:05 INR 1.11 (0.87-1.13) 12/15/17 04:05 APTT 20.9 Sec. (24.2-36.6) L 12/15/17 04:05 POC ABG pH 7.503 (7.35-7.45) H 12/25/17 03:38 ABG pH 7.441 pH Units (7.350-7.450) 01/06/18 03:14 POC ABG pCO2 35.8 (35-45) 12/25/17 03:38 ABG pCO2 43.2 mm Hg 01/06/18 03:14 POC ABG pO2 66 (80-105) L 12/25/17 03:38 ABG pO2 84.9 mm Hg (80.0-90.0) 01/06/18 03:14 POC ABG HCO3 28.1 12/25/17 03:38 ABG HCO3 28.8 mmol/L (20.0-26.0) H 01/06/18 03:14 POC ABG Total CO2 29 12/25/17 03:38 POC ABG O2 Sat 95 12/25/17 03:38 ABG O2 Saturation 97.0 % (95.0-99.0) 01/06/18 03:14 ABG O2 Content 12.6 (0.0-44) 01/06/18 03:14 POC ABG Base Excess 5 12/25/17 03:38 ABG Base Excess 4.2 mmol/L (-2.0-3.0) H 01/06/18 03:14 ABG Hemoglobin 9.3 gm/dl (14.0-18.0) L 01/06/18 03:14 ABG Carboxyhemoglobin 2.0 % (0.0-5.0) 01/06/18 03:14 ABG Methemoglobin 0.4 % (0.0-1.5) 01/06/18 03:14 VBG pH 7.472 (7.320-7.420) H 12/12/17 19:18 Oxyhemoglobin 94.7 % (95.0-99.0) L 01/06/18 03:14 FiO2 30 % 01/06/18 03:14 Sodium 136 mmol/L (137-145) L 01/13/18 05:00 Potassium 4.0 mmol/L (3.6-5.0) 01/13/18 05:00 Chloride 95.5 mmol/L (98-107) L 01/13/18 05:00 Carbon Dioxide 27 mmol/L (22-30) 01/13/18 05:00 Anion Gap 18 mmol/L 01/13/18 05:00 BUN 16 mg/dL (9-20) 01/13/18 05:00 Creatinine 0.4 mg/dL (0.8-1.5) L 01/13/18 05:00 Estimated GFR > 60 ml/min 01/13/18 05:00 BUN/Creatinine Ratio 40 % 01/13/18 05:00 Glucose 165 mg/dL (75-100) H 01/13/18 05:00 POC Glucose 188 (70-105) H 01/13/18 05:06 Lactic Acid 2.00 mmol/L (0.7-2.0) 12/13/17 19:38 Calcium 9.8 mg/dL (8.4-10.2) 01/13/18 05:00 Phosphorus 3.90 mg/dL (2.5-4.5) 01/11/18 11:21 Magnesium 1.70 mg/dL (1.7-2.3) 01/11/18 11:21 Total Bilirubin 0.40 mg/dL (0.1-1.2) 01/06/18 05:30 AST 30 units/L (5-40) 01/06/18 05:30 ALT 42 units/L (7-56) 01/06/18 05:30 Alkaline Phosphatase 74 units/L (35-129) 01/06/18 05:30 C-Reactive Protein 7.10 mg/dL (0.00-1.30) H 12/20/17 13:40 NT-Pro-B Natriuret Pep 409.9 pg/mL (0-450) 12/12/17 19:02 Total Protein 7.5 g/dL (6.3-8.2) 01/06/18 05:30 Albumin 3.1 g/dL (3.9-5) L 01/06/18 05:30 Albumin/Globulin Ratio 0.7 % 01/06/18 05:30 Triglycerides 1042 mg/dL (2-149) H 12/20/17 13:40 Amylase 20 units/L (27-131) L 12/13/17 13:47 Lipase 9 units/L (13-60) L 12/13/17 13:47 Urine Color [place] (Yellow) 12/15/17 17:00 Urine Turbidity Hazy (Clear) 12/15/17 17:00 Urine pH 6.0 (5.0-7.0) 12/15/17 17:00 Ur Specific [place] 1.027 (1.003-1.030) 12/15/17 17:00 Urine Protein 30 mg/dl mg/dL (Negative) 12/15/17 17:00 Urine Glucose (UA) Neg mg/dL (Negative) 12/15/17 17:00 Urine Ketones Tr mg/dL (Negative) 12/15/17 17:00 Urine Blood Lg (Negative) 12/15/17 17:00 Urine Nitrite Neg (Negative) 12/15/17 17:00 Urine Bilirubin Neg (Negative) 12/15/17 17:00 Urine Ictotest Positive (Negative) 12/12/17 20:42 Urine Urobilinogen < 2.0 mg/dL (<2.0) 12/15/17 17:00 Ur Leukocyte Esterase Tr (Negative) 12/15/17 17:00 Urine WBC (Auto) 38.0 /HPF (0.0-6.0) H 12/15/17 17:00 Urine RBC (Auto) 65.0 /HPF (0.0-6.0) 12/15/17 17:00 U Epithel Cells (Auto) < 1.0 /HPF (0-13.0) 12/12/17 20:42 Urine Bacteria (Auto) 1+ /HPF (Negative) 12/15/17 17:00 Urine Mucus 1+ /HPF 12/12/17 20:42 Vancomycin Trough 22.5 ug/mL (5.0-20.0) H 12/25/17 12:58 JERMAIN Screen Negative (Negative) 12/18/17 16:44 Proteinase 3 (PR3) Ab <1.0 AI (<1.0) 12/18/17 16:33 Myeloperoxidase Ab <1.0 AI (<1.0) 12/18/17 16:33 Complement C3 113 mg/dL (82-185) 12/18/17 16:33 Complement C4 15 mg/dL (15-53) 12/18/17 16:33 Hepatitis A IgM Ab Non-reactive (NonReactive) 12/20/17 13:40 Hep Bs Antigen Non-reactive (Negative) 12/20/17 13:40 Hep B Core IgM Ab Non-reactive (NonReactive) 12/20/17 13:40 Hepatitis C Antibody Non-reactive (NonReactive) 12/20/17 13:40 HIV 1&2 Antibody Rapid Non react (Non React) 12/20/17 13:40 HIV P24 Antigen Non react (Non React) 12/20/17 13:40 Influenza A (Rapid) Negative (Negative) 12/12/17 22:00 Influenza B (Rapid) Negative (Negative) 12/12/17 22:00 Urine Legionella Ag Not detected (Not Detected) 12/14/17 16:15 Miscellaneous Test Flexitest 1 12/14/17 16:15 Blood Type O POSITIVE 12/31/17 09:25 Antibody Screen Negative 12/31/17 09:25 Crossmatch See Detail 12/31/17 09:25
[2018-01-13] MEDS: LOPRESSOR PO SCH (10:48)
[2018-01-13] MEDS: POTASSIUM CHLORIDE PO SCH (10:49)
[2018-01-13] MEDS: PEPCID PO SCH (10:49)
[2018-01-13] MEDS: VITAMIN B-1 PO SCH (10:49)
[2018-01-13] MEDS: LANTUS SUB-Q SCH (10:49)
--- NOTE | 2018-01-13 11:25 | Progress Note ---
Assessment and Plan Imp: 1. Haemophilus influenza pneumonia and bacteremia 2. Severe sepsis 3. ARDS 4. Acute respiratory failure, hypoxia 5. Hypernatremia Rec: 1. DVT and GI PPx, TFs 2. Finished ABX 3. Patient/ adamantly refuse trach/peg, and fully understand potential complications of doing so including permanent damage to vocal cords and trachea ; wean PSV to 10 as tolerated & will attempt extubation again once tolerating Plan of care reviewed w/ patient/, they understand/agree Subjective Date of service: 01/13/18 Principal diagnosis: ARDS,Respiratory failure,pneumonia Interval history: No events. On PSV 12/5 and tolerating. Awake without complaints. Active Medications Acetaminophen (Tylenol) 650 mg PO Q6H PRN PRN Reason: Pain, Mild (1-3),temp 100.5or> Last Admin: 01/06/18 20:18 Dose: 650 mg Acetaminophen (Tylenol) 650 mg SD Q4H PRN PRN Reason: Pain, Mild (1-3) Albuterol (Proventil) 2.5 mg IH Q4HRT PRN PRN Reason: Shortness Of Breath Last Admin: 12/13/17 03:01 Dose: 2.5 mg Albuterol/Ipratropium (Duoneb *Not For Prn Use*) 1 ampul IH TIDRT [facility] Last Admin: 01/13/18 15:12 Dose: 1 ampul Lipase/Protease/Amylase (Pancrealex Dr 10,500 Unit) 1 each FEEDTUBE PRN PRN PRN Reason: For Clogged Feeding Tube Chlordiazepoxide HCl (Librium) 50 mg PO Q6HR [facility] Last Admin: 01/13/18 11:04 Dose: 50 mg Dextrose (D50w (25gm) Syringe) 50 ml IV PRN PRN PRN Reason: Hypoglycemia Enoxaparin Sodium (Lovenox) 40 mg SUB-Q QDAY@2200 [facility] Last Admin: 01/12/18 21:50 Dose: 40 mg Famotidine (Pepcid) 20 mg PO BID [facility] Last Admin: 01/13/18 10:49 Dose: 20 mg Fentanyl (Sublimaze) 50 mcg IV Q2H PRN PRN Reason: agitation Last Admin: 01/08/18 05:28 Dose: 50 mcg Hydralazine HCl (Apresoline) 10 mg IV Q4HR PRN PRN Reason: SBP>170 Last Admin: 12/27/17 10:10 Dose: 10 mg Hydrophilic Ointment (Vaseline Lip Therapy) 1 applic TP DIRECT PRN PRN Reason: DRY LIPS Last Admin: 12/31/17 02:08 Dose: 1 applic Dexmedetomidine HCl 400 mcg/ (Sodium Chloride) 104 mls @ 5.25 mls/hr IV TITRATE [facility]; Protocol Last Admin: 01/03/18 15:33 Dose: 0.5 mcg/kg/hr, 13.13 mls/hr Insulin Glargine (Lantus) 26 units SUB-Q DAILY [facility] Last Admin: 01/13/18 10:49 Dose: 26 units Insulin Human Lispro (Humalog) 0 unit SUB-Q Q4H [facility]; Protocol Last Admin: 01/13/18 10:46 Dose: Not Given Labetalol HCl (Normodyne) 20 mg IV Q6H PRN PRN Reason: Blood Pressure Metoprolol Tartrate (Lopressor) 50 mg PO BID [facility] Last Admin: 01/13/18 10:48 Dose: 50 mg Multi-Ingred Cream/Lotion/Oil/Oint (Artificial Tears Ophth Oint) 1 applic OU Q4HR PRN PRN Reason: Dry Eye(s) Ondansetron HCl (Zofran) 4 mg IV Q8H PRN PRN Reason: Nausea And Vomiting Last Admin: 01/01/18 04:20 Dose: 4 mg Potassium Chloride (Potassium Chloride) 20 meq PO QDAY [facility] Last Admin: 01/13/18 10:49 Dose: 20 meq Senna/Docusate Sodium (Senokot S) 2 tab PO BID PRN PRN Reason: Laxative Effect Simple Syrup (Simple Syrup) 15 ml FEEDTUBE PRN PRN PRN Reason: Hypoglycemia Last Admin: 12/31/17 02:07 Dose: 15 ml Simple Syrup (Simple Syrup) 30 ml FEEDTUBE PRN PRN PRN Reason: Hypoglycemia Sodium Bicarbonate (Sodium Bicarbonate) 325 mg FEEDTUBE PRN PRN PRN Reason: For Clogged Feeding Tube Sodium Chloride (Sodium Chloride Flush Syringe 10 Ml) 10 ml IV BID [facility] Last Admin: 01/13/18 10:49 Dose: 10 ml Sodium Chloride (Sodium Chloride Flush Syringe 10 Ml) 10 ml IV PRN PRN PRN Reason: LINE FLUSH Last Admin: 01/04/18 05:30 Dose: 10 ml Thiamine HCl (Vitamin B-1) 100 mg PO QDAY [facility] Last Admin: 01/13/18 10:49 Dose: 100 mg Active Medications Acetaminophen (Tylenol) 650 mg PO Q6H PRN PRN Reason: Pain, Mild (1-3),temp 100.5or> Last Admin: 12/19/17 03:15 Dose: 650 mg Albuterol (Proventil) 2.5 mg IH Q4HRT PRN PRN Reason: Shortness Of Breath Last Admin: 12/13/17 03:01 Dose: 2.5 mg Albuterol/Ipratropium (Duoneb *Not For Prn Use*) 1 ampul IH Q6HRT [facility] Last Admin: 12/19/17 08:30 Dose: 1 ampul Lipase/Protease/Amylase (Pancreaze Dr 10,500 Unit) 1 each FEEDTUBE PRN PRN PRN Reason: For Clogged Feeding Tube Dextrose (D50w (25gm) Syringe) 50 ml IV PRN PRN PRN Reason: Hypoglycemia Famotidine (Pepcid) 20 mg PO BID [facility] Last Admin: 12/19/17 09:13 Dose: 20 mg Fentanyl (Sublimaze) 50 mcg IV Q2H PRN PRN Reason: PAIN/AGITATION Last Admin: 12/18/17 15:02 Dose: 50 mcg Furosemide (Lasix) 20 mg IV ONCE ONE Stop: 12/19/17 14:00 Hydromorphone HCl (Dilaudid) 2 mg PO Q6HR [facility] Last Admin: 12/19/17 12:25 Dose: 2 mg Hydrophilic Ointment (Vaseline Lip Therapy) 1 applic TP Q2HR PRN PRN Reason: Dry Lips Hydrophilic Ointment (Vaseline Lip Therapy) 1 applic TP DIRECT PRN PRN Reason: DRY LIPS Levofloxacin/Dextrose (Levaquin 750mg/150ml) 750 mg in 150 mls @ 100 mls/hr IV Q24HR [facility]; Protocol Last Admin: 12/19/17 09:02 Dose: 100 mls/hr Fentanyl Citrate (Fentanyl Drip Premix) 2,000 mcg in 100 mls @ 5.058 mls/hr IV TITR [facility]; Protocol Last Admin: 12/19/17 08:51 Dose: 4 mcg/kg/hr, 20.23 mls/hr Midazolam HCl 100 mg/ Sodium (Chloride) 100 mls @ 2 mls/hr IV TITR [facility]; Protocol Last Titration: 12/19/17 10:03 Dose: 3 mg/hr, 3 mls/hr Clindamycin HCl (Cleocin 600 Mg/50 Ml) 600 mg in 50 mls @ 100 mls/hr IV Q8HR [facility] Stop: 12/20/17 13:59 Last Admin: 12/19/17 06:00 Dose: 100 mls/hr Propofol (Diprivan 10 Mg/Ml) 1,000 mg in 100 mls @ 3.264 mls/hr IV TITR [facility]; Protocol Last Titration: 12/19/17 13:51 Dose: 40 mcg/kg/min, 26.112 mls/hr Vancomycin HCl 1,500 mg/ (Sodium Chloride) 515 mls @ 333.333 mls/hr IV Q12H [facility] Last Admin: 12/19/17 04:43 Dose: 333.333 mls/hr Insulin Glargine (Lantus) 20 units SUB-Q DAILY [facility] Insulin Human Lispro (Humalog) 0 unit SUB-Q Q4H [facility]; Protocol Last Admin: 12/19/17 11:44 Dose: 10 unit Methylprednisolone Sodium Succinate (Solu-Medrol) 80 mg IV Q6H [facility] Last Admin: 12/19/17 08:47 Dose: 80 mg Morphine Sulfate (Morphine) 2 mg IV Q4H PRN PRN Reason: Pain, Moderate (4-6) Last Admin: 12/18/17 02:30 Dose: 2 mg Multi-Ingred Cream/Lotion/Oil/Oint (Artificial Tears Ophth Oint) 1 applic OU Q4HR PRN PRN Reason: Dry Eye(s) Ondansetron HCl (Zofran) 4 mg IV Q8H PRN PRN Reason: Nausea And Vomiting Senna/Docusate Sodium (Senokot S) 1 tab PO BID [facility] Last Admin: 12/19/17 09:09 Dose: 1 tab Simple Syrup (Simple Syrup) 15 ml FEEDTUBE PRN PRN PRN Reason: Hypoglycemia Simple Syrup (Simple Syrup) 30 ml FEEDTUBE PRN PRN PRN Reason: Hypoglycemia Sodium Bicarbonate (Sodium Bicarbonate) 325 mg FEEDTUBE PRN PRN PRN Reason: For Clogged Feeding Tube Sodium Chloride (Sodium Chloride Flush Syringe 10 Ml) 10 ml IV BID [facility] Last Admin: 12/19/17 11:49 Dose: 10 ml Sodium Chloride (Sodium Chloride Flush Syringe 10 Ml) 10 ml IV PRN PRN PRN Reason: LINE FLUSH Thiamine HCl (Vitamin B-1) 100 mg PO QDAY [facility] Last Admin: 12/19/17 09:09 Dose: 100 mg Vancomycin HCl (Vancomycin Pharmacy To Dose) 1 each IV PKCONSULT [facility]; Protocol Objective Vital Signs - 12hr 01/12/18 01/12/18 01/13/18 23:31 23:50 00:00 Temperature 98.4 F Pulse Rate 81 83 Pulse Rate [ Anterior Bilateral Throughout] Pulse Rate [ 77 From Monitor] Respiratory 14 18 Rate Respiratory Rate [Anterior Bilateral Throughout] Blood Pressure 115/87 115/87 O2 Sat by Pulse 98 100 Oximetry 01/13/18 01/13/18 01/13/18 00:01 00:31 01:00 Temperature Pulse Rate 83 83 82 Pulse Rate [ Anterior Bilateral Throughout] Pulse Rate [ From Monitor] Respiratory 18 18 18 Rate Respiratory Rate [Anterior Bilateral Throughout] Blood Pressure 146/87 146/87 105/68 O2 Sat by Pulse 98 94 Oximetry 01/13/18 01/13/18 01/13/18 01:31 02:00 02:31 Temperature Pulse Rate 81 81 83 Pulse Rate [ Anterior Bilateral Throughout] Pulse Rate [ From Monitor] Respiratory 18 17 18 Rate Respiratory Rate [Anterior Bilateral Throughout] Blood Pressure 146/87 105/68 105/75 O2 Sat by Pulse 99 100 99 Oximetry 01/13/18 01/13/18 01/13/18 03:00 03:31 03:41 Temperature 97.4 F L Pulse Rate 83 83 Pulse Rate [ Anterior Bilateral Throughout] Pulse Rate [ From Monitor] Respiratory 18 18 Rate Respiratory Rate [Anterior Bilateral Throughout] Blood Pressure 97/69 97/69 O2 Sat by Pulse 97 100 Oximetry 01/13/18 01/13/18 01/13/18 04:00 04:26 04:31 Temperature Pulse Rate 88 89 87 Pulse Rate [ Anterior Bilateral Throughout] Pulse Rate [ 87 From Monitor] Respiratory 19 19 Rate Respiratory Rate [Anterior Bilateral Throughout] Blood Pressure 102/72 102/72 97/69 O2 Sat by Pulse 93 96 98 Oximetry 01/13/18 01/13/18 01/13/18 05:00 05:37 06:00 Temperature Pulse Rate 86 90 Pulse Rate [ Anterior Bilateral Throughout] Pulse Rate [ From Monitor] Respiratory 15 16 Rate Respiratory Rate [Anterior Bilateral Throughout] Blood Pressure 109/79 109/79 114/74 O2 Sat by Pulse 98 99 Oximetry 01/13/18 01/13/18 01/13/18 06:31 07:00 07:31 Temperature Pulse Rate 95 H 94 H 87 Pulse Rate [ Anterior Bilateral Throughout] Pulse Rate [ From Monitor] Respiratory 16 16 18 Rate Respiratory Rate [Anterior Bilateral Throughout] Blood Pressure 109/79 121/82 121/82 O2 Sat by Pulse 96 96 99 Oximetry 01/13/18 01/13/18 01/13/18 07:37 08:00 08:12 Temperature 98.3 F Pulse Rate 92 H 92 H Pulse Rate [ 93 H Anterior Bilateral Throughout] Pulse Rate [ From Monitor] Respiratory 18 Rate Respiratory 18 Rate [Anterior Bilateral Throughout] Blood Pressure 114/75 114/75 O2 Sat by Pulse 100 Oximetry 01/13/18 01/13/18 01/13/18 08:23 08:28 10:48 Temperature Pulse Rate 94 H 100 H Pulse Rate [ 93 H Anterior Bilateral Throughout] Pulse Rate [ From Monitor] Respiratory Rate Respiratory 25 H Rate [Anterior Bilateral Throughout] Blood Pressure 114/75 118/73 O2 Sat by Pulse 98 Oximetry Constitutional: no acute distress, alert Eyes: non-icteric ENT: oropharynx moist Neck: supple Effort: normal Ascultation: Bilateral: other (coarse BS bilaterally) Cardiovascular: regular rate and rhythm (no mrg) Gastrointestinal: normoactive bowel sounds, soft, non-tender, non-distended Integumentary: normal Extremities: no cyanosis, no edema, pink and warm, no ischemia or petechiae Neurologic: normal mental status, non-focal exam, pupils equal and round, CN II- XII normal Psychiatric: mood appropriate, affect normal CBC and BMP: 01/13/18 05:00 01/13/18 05:00 ABG, PT/INR, D-dimer: ABG POC ABG pH 7.503 (7.35-7.45) H 12/25/17 03:38 ABG pH 7.441 pH Units (7.350-7.450) 01/06/18 03:14 POC ABG pCO2 35.8 (35-45) 12/25/17 03:38 ABG pCO2 43.2 mm Hg 01/06/18 03:14 POC ABG pO2 66 (80-105) L 12/25/17 03:38 ABG pO2 84.9 mm Hg (80.0-90.0) 01/06/18 03:14 POC ABG HCO3 28.1 12/25/17 03:38 POC ABG Total CO2 29 12/25/17 03:38 POC ABG O2 Sat 95 12/25/17 03:38 ABG O2 Saturation 97.0 % (95.0-99.0) 01/06/18 03:14 PT/INR, D-dimer PT 14.9 Sec. (12.2-14.9) 12/15/17 04:05 INR 1.11 (0.87-1.13) 12/15/17 04:05 Abnormal lab findings: Abnormal Labs 12/12/17 12/12/17 12/12/17 18:57 19:02 19:02 WBC RBC Hgb Hct MCV 96 H MCH 34 H MCHC 35 H RDW Plt Count 46 L Lymph % (Auto) Eos % (Auto) [place] # Eos # Baso # Seg Neutrophils % Seg Neuts % (Manual) 77.0 H Lymphocytes % (Manual) 13.0 L Monocytes % (Manual) Eosinophils % (Manual) Nucleated RBC % Seg Neutrophils # Seg Neutrophils # Man Lymphocytes # (Manual) 0.9 L Monocytes # (Manual) Eosinophils # (Manual) APTT POC ABG pH ABG pH POC ABG pCO2 POC ABG pO2 ABG pO2 ABG HCO3 ABG O2 Saturation ABG Base Excess ABG Hemoglobin VBG pH Oxyhemoglobin Sodium Potassium Chloride Carbon Dioxide BUN Creatinine Glucose POC Glucose 321 H Lactic Acid 4.00 H* Calcium Phosphorus Total Bilirubin AST ALT C-Reactive Protein Total Protein Albumin Triglycerides Amylase Lipase Urine WBC (Auto) Vancomycin Trough Crossmatch 12/12/17 12/12/17 12/12/17 19:02 19:18 20:55 WBC RBC Hgb Hct MCV MCH MCHC RDW Plt Count Lymph % (Auto) Eos % (Auto) [place] # Eos # Baso # Seg Neutrophils % Seg Neuts % (Manual) Lymphocytes % (Manual) Monocytes % (Manual) Eosinophils % (Manual) Nucleated RBC % Seg Neutrophils # Seg Neutrophils # Man Lymphocytes # (Manual) Monocytes # (Manual) Eosinophils # (Manual) APTT POC ABG pH ABG pH POC ABG pCO2 POC ABG pO2 ABG pO2 ABG HCO3 ABG O2 Saturation ABG Base Excess ABG Hemoglobin VBG pH 7.472 H Oxyhemoglobin Sodium 124 L Potassium Chloride 80.0 L Carbon Dioxide 20 L BUN Creatinine Glucose 382 H POC Glucose 283 H Lactic Acid Calcium 8.1 L Phosphorus Total Bilirubin 4.60 H AST 93 H ALT 112 H C-Reactive Protein Total Protein Albumin 2.5 L Triglycerides Amylase Lipase Urine WBC (Auto) Vancomycin Trough Crossmatch 12/12/17 12/13/17 12/13/17 21:41 00:45 01:29 WBC RBC Hgb Hct MCV MCH MCHC RDW Plt Count Lymph % (Auto) Eos % (Auto) [place] # Eos # Baso # Seg Neutrophils % Seg Neuts % (Manual) Lymphocytes % (Manual) Monocytes % (Manual) Eosinophils % (Manual) Nucleated RBC % Seg Neutrophils # Seg Neutrophils # Man Lymphocytes # (Manual) Monocytes # (Manual) Eosinophils # (Manual) APTT POC ABG pH ABG pH POC ABG pCO2 POC ABG pO2 ABG pO2 ABG HCO3 ABG O2 Saturation ABG Base Excess ABG Hemoglobin VBG pH Oxyhemoglobin Sodium Potassium Chloride Carbon Dioxide BUN Creatinine Glucose POC Glucose Lactic Acid 4.20 H* 2.70 H* 3.30 H* Calcium Phosphorus Total Bilirubin AST ALT C-Reactive Protein Total Protein Albumin Triglycerides Amylase Lipase Urine WBC (Auto) Vancomycin Trough Crossmatch 12/13/17 12/13/17 12/13/17 02:19 03:44 05:58 WBC RBC Hgb Hct MCV 97 H MCH 34 H MCHC 35 H RDW Plt Count 41 L Lymph % (Auto) Eos % (Auto) [place] # Eos # Baso # Seg Neutrophils % Seg Neuts % (Manual) Lymphocytes % (Manual) 8.0 L Monocytes % (Manual) 8.0 H Eosinophils % (Manual) Nucleated RBC % Seg Neutrophils # Seg Neutrophils # Man Lymphocytes # (Manual) 0.6 L Monocytes # (Manual) Eosinophils # (Manual) APTT POC ABG pH 7.334 L ABG pH POC ABG pCO2 POC ABG pO2 43 L ABG pO2 ABG HCO3 ABG O2 Saturation ABG Base Excess ABG Hemoglobin VBG pH Oxyhemoglobin Sodium Potassium Chloride Carbon Dioxide BUN Creatinine Glucose POC Glucose Lactic Acid 2.60 H* Calcium Phosphorus Total Bilirubin AST ALT C-Reactive Protein Total Protein Albumin Triglycerides Amylase Lipase Urine WBC (Auto) Vancomycin Trough Crossmatch 12/13/17 12/13/17 12/13/17 05:58 05:58 05:58 WBC RBC Hgb Hct MCV MCH MCHC RDW Plt Count Lymph % (Auto) Eos % (Auto) [place] # Eos # Baso # Seg Neutrophils % Seg Neuts % (Manual) Lymphocytes % (Manual) Monocytes % (Manual) Eosinophils % (Manual) Nucleated RBC % Seg Neutrophils # Seg Neutrophils # Man Lymphocytes # (Manual) Monocytes # (Manual) Eosinophils # (Manual) APTT POC ABG pH ABG pH POC ABG pCO2 POC ABG pO2 ABG pO2 ABG HCO3 ABG O2 Saturation ABG Base Excess ABG Hemoglobin VBG pH Oxyhemoglobin Sodium 132 L D Potassium Chloride 90.0 L Carbon Dioxide 20 L BUN Creatinine Glucose 346 H POC Glucose 298 H Lactic Acid 4.50 H* Calcium 8.2 L Phosphorus Total Bilirubin AST ALT C-Reactive Protein Total Protein Albumin Triglycerides Amylase Lipase Urine WBC (Auto) Vancomycin Trough Crossmatch 12/13/17 12/13/17 12/13/17 06:27 09:42 11:47 WBC RBC Hgb Hct MCV MCH MCHC RDW Plt Count Lymph % (Auto) Eos % (Auto) [place] # Eos # Baso # Seg Neutrophils % Seg Neuts % (Manual) Lymphocytes % (Manual) Monocytes % (Manual) Eosinophils % (Manual) Nucleated RBC % Seg Neutrophils # Seg Neutrophils # Man Lymphocytes # (Manual) Monocytes # (Manual) Eosinophils # (Manual) APTT POC ABG pH 7.267 L 7.298 L ABG pH POC ABG pCO2 50.4 H 51.3 H POC ABG pO2 47 L 43 L ABG pO2 ABG HCO3 ABG O2 Saturation ABG Base Excess ABG Hemoglobin VBG pH Oxyhemoglobin Sodium Potassium Chloride Carbon Dioxide BUN Creatinine Glucose POC Glucose 376 H Lactic Acid Calcium Phosphorus Total Bilirubin AST ALT C-Reactive Protein Total Protein Albumin Triglycerides Amylase Lipase Urine WBC (Auto) Vancomycin Trough Crossmatch 12/13/17 12/13/17 12/13/17 12:03 13:47 13:47 WBC RBC Hgb Hct MCV MCH MCHC RDW Plt Count Lymph % (Auto) Eos % (Auto) [place] # Eos # Baso # Seg Neutrophils % Seg Neuts % (Manual) Lymphocytes % (Manual) Monocytes % (Manual) Eosinophils % (Manual) Nucleated RBC % Seg Neutrophils # Seg Neutrophils # Man Lymphocytes # (Manual) Monocytes # (Manual) Eosinophils # (Manual) APTT POC ABG pH 7.264 L ABG pH POC ABG pCO2 54.9 H POC ABG pO2 55 L ABG pO2 ABG HCO3 ABG O2 Saturation ABG Base Excess ABG Hemoglobin VBG pH Oxyhemoglobin Sodium Potassium Chloride Carbon Dioxide BUN Creatinine Glucose POC Glucose Lactic Acid 2.80 H* Calcium Phosphorus Total Bilirubin AST ALT C-Reactive Protein Total Protein Albumin Triglycerides Amylase 20 L Lipase 9 L Urine WBC (Auto) Vancomycin Trough Crossmatch 12/13/17 12/13/17 12/13/17 15:36 17:39 21:47 WBC RBC Hgb Hct MCV MCH MCHC RDW Plt Count Lymph % (Auto) Eos % (Auto) [place] # Eos # Baso # Seg Neutrophils % Seg Neuts % (Manual) Lymphocytes % (Manual) Monocytes % (Manual) Eosinophils % (Manual) Nucleated RBC % Seg Neutrophils # Seg Neutrophils # Man Lymphocytes # (Manual) Monocytes # (Manual) Eosinophils # (Manual) APTT POC ABG pH 7.229 L 7.225 L ABG pH POC ABG pCO2 60.9 H 66.3 H POC ABG pO2 42 L 41 L ABG pO2 ABG HCO3 ABG O2 Saturation ABG Base Excess ABG Hemoglobin VBG pH Oxyhemoglobin Sodium Potassium Chloride Carbon Dioxide BUN Creatinine Glucose POC Glucose 289 H Lactic Acid Calcium Phosphorus Total Bilirubin AST ALT C-Reactive Protein Total Protein Albumin Triglycerides Amylase Lipase Urine WBC (Auto) Vancomycin Trough Crossmatch 12/13/17 12/14/17 12/14/17 22:19 02:03 05:16 WBC RBC Hgb Hct MCV MCH MCHC RDW Plt Count Lymph % (Auto) Eos % (Auto) [place] # Eos # Baso # Seg Neutrophils % Seg Neuts % (Manual) Lymphocytes % (Manual) Monocytes % (Manual) Eosinophils % (Manual) Nucleated RBC % Seg Neutrophils # Seg Neutrophils # Man Lymphocytes # (Manual) Monocytes # (Manual) Eosinophils # (Manual) APTT POC ABG pH 7.247 L ABG pH POC ABG pCO2 61.2 H POC ABG pO2 53 L ABG pO2 ABG HCO3 ABG O2 Saturation ABG Base Excess ABG Hemoglobin VBG pH Oxyhemoglobin Sodium Potassium Chloride Carbon Dioxide BUN Creatinine Glucose POC Glucose 274 H 295 H Lactic Acid Calcium Phosphorus Total Bilirubin AST ALT C-Reactive Protein Total Protein Albumin Triglycerides Amylase Lipase Urine WBC (Auto) Vancomycin Trough Crossmatch 12/14/17 12/14/17 12/14/17 05:32 12:04 16:22 WBC RBC Hgb Hct MCV MCH MCHC RDW Plt Count Lymph % (Auto) Eos % (Auto) [place] # Eos # Baso # Seg Neutrophils % Seg Neuts % (Manual) Lymphocytes % (Manual) Monocytes % (Manual) Eosinophils % (Manual) Nucleated RBC % Seg Neutrophils # Seg Neutrophils # Man Lymphocytes # (Manual) Monocytes # (Manual) Eosinophils # (Manual) APTT POC ABG pH ABG pH POC ABG pCO2 POC ABG pO2 ABG pO2 ABG HCO3 ABG O2 Saturation ABG Base Excess ABG Hemoglobin VBG pH Oxyhemoglobin Sodium Potassium Chloride Carbon Dioxide BUN Creatinine Glucose POC Glucose 230 H 241 H 231 H Lactic Acid Calcium Phosphorus Total Bilirubin AST ALT C-Reactive Protein Total Protein Albumin Triglycerides Amylase Lipase Urine WBC (Auto) Vancomycin Trough Crossmatch 12/14/17 12/15/17 12/15/17 21:29 02:29 03:25 WBC RBC Hgb Hct MCV MCH MCHC RDW Plt Count Lymph % (Auto) Eos % (Auto) [place] # Eos # Baso # Seg Neutrophils % Seg Neuts % (Manual) Lymphocytes % (Manual) Monocytes % (Manual) Eosinophils % (Manual) Nucleated RBC % Seg Neutrophils # Seg Neutrophils # Man Lymphocytes # (Manual) Monocytes # (Manual) Eosinophils # (Manual) APTT POC ABG pH 7.330 L ABG pH POC ABG pCO2 55.3 H POC ABG pO2 59 L ABG pO2 ABG HCO3 ABG O2 Saturation ABG Base Excess ABG Hemoglobin VBG pH Oxyhemoglobin Sodium Potassium Chloride Carbon Dioxide BUN Creatinine Glucose POC Glucose 258 H 246 H Lactic Acid Calcium Phosphorus Total Bilirubin AST ALT C-Reactive Protein Total Protein Albumin Triglycerides Amylase Lipase Urine WBC (Auto) Vancomycin Trough Crossmatch 12/15/17 12/15/17 12/15/17 04:05 04:05 04:05 WBC 15.0 H RBC 3.40 L Hgb 11.3 L D Hct 33.8 L D MCV 100 H MCH 33 H MCHC RDW Plt Count 48 L Lymph % (Auto) Eos % (Auto) [place] # Eos # Baso # Seg Neutrophils % Seg Neuts % (Manual) Lymphocytes % (Manual) 3.0 L Monocytes % (Manual) Eosinophils % (Manual) Nucleated RBC % 2.0 H Seg Neutrophils # Seg Neutrophils # Man Lymphocytes # (Manual) 0.5 L Monocytes # (Manual) 0.9 H Eosinophils # (Manual) APTT 20.9 L POC ABG pH ABG pH POC ABG pCO2 POC ABG pO2 ABG pO2 ABG HCO3 ABG O2 Saturation ABG Base Excess ABG Hemoglobin VBG pH Oxyhemoglobin Sodium Potassium Chloride Carbon Dioxide BUN 27 H Creatinine Glucose 258 H POC Glucose Lactic Acid Calcium 8.1 L Phosphorus Total Bilirubin AST ALT C-Reactive Protein Total Protein Albumin Triglycerides Amylase Lipase Urine WBC (Auto) Vancomycin Trough Crossmatch 12/15/17 12/15/17 12/15/17 05:32 11:17 14:59 WBC RBC Hgb Hct MCV MCH MCHC RDW Plt Count Lymph % (Auto) Eos % (Auto) [place] # Eos # Baso # Seg Neutrophils % Seg Neuts % (Manual) Lymphocytes % (Manual) Monocytes % (Manual) Eosinophils % (Manual) Nucleated RBC % Seg Neutrophils # Seg Neutrophils # Man Lymphocytes # (Manual) Monocytes # (Manual) Eosinophils # (Manual) APTT POC ABG pH ABG pH POC ABG pCO2 POC ABG pO2 ABG pO2 ABG HCO3 ABG O2 Saturation ABG Base Excess ABG Hemoglobin VBG pH Oxyhemoglobin Sodium Potassium Chloride Carbon Dioxide BUN Creatinine Glucose POC Glucose 247 H 268 H 233 H Lactic Acid Calcium Phosphorus Total Bilirubin AST ALT C-Reactive Protein Total Protein Albumin Triglycerides Amylase Lipase Urine WBC (Auto) Vancomycin Trough Crossmatch 12/15/17 12/15/17 12/15/17 17:00 18:59 21:37 WBC RBC Hgb Hct MCV MCH MCHC RDW Plt Count Lymph % (Auto) Eos % (Auto) [place] # Eos # Baso # Seg Neutrophils % Seg Neuts % (Manual) Lymphocytes % (Manual) Monocytes % (Manual) Eosinophils % (Manual) Nucleated RBC % Seg Neutrophils # Seg Neutrophils # Man Lymphocytes # (Manual) Monocytes # (Manual) Eosinophils # (Manual) APTT POC ABG pH ABG pH POC ABG pCO2 POC ABG pO2 ABG pO2 ABG HCO3 ABG O2 Saturation ABG Base Excess ABG Hemoglobin VBG pH Oxyhemoglobin Sodium Potassium Chloride Carbon Dioxide BUN Creatinine Glucose POC Glucose 195 H 208 H Lactic Acid Calcium Phosphorus Total Bilirubin AST ALT C-Reactive Protein Total Protein Albumin Triglycerides Amylase Lipase Urine WBC (Auto) 38.0 H Vancomycin Trough Crossmatch 12/16/17 12/16/17 12/16/17 03:17 03:33 04:18 WBC 16.4 H RBC 3.50 L Hgb 11.3 L Hct 35.4 L MCV 101 H MCH MCHC RDW Plt Count 54 L Lymph % (Auto) Eos % (Auto) [place] # Eos # Baso # Seg Neutrophils % Seg Neuts % (Manual) Lymphocytes % (Manual) Monocytes % (Manual) Eosinophils % (Manual) Nucleated RBC % Seg Neutrophils # Seg Neutrophils # Man Lymphocytes # (Manual) Monocytes # (Manual) Eosinophils # (Manual) APTT POC ABG pH ABG pH POC ABG pCO2 47.7 H POC ABG pO2 ABG pO2 ABG HCO3 ABG O2 Saturation ABG Base Excess ABG Hemoglobin VBG pH Oxyhemoglobin Sodium Potassium Chloride Carbon Dioxide BUN Creatinine Glucose POC Glucose 227 H Lactic Acid Calcium Phosphorus Total Bilirubin AST ALT C-Reactive Protein Total Protein Albumin Triglycerides Amylase Lipase Urine WBC (Auto) Vancomycin Trough Crossmatch 12/16/17 12/16/17 12/16/17 04:18 05:08 10:01 WBC RBC Hgb Hct MCV MCH MCHC RDW Plt Count Lymph % (Auto) Eos % (Auto) [place] # Eos # Baso # Seg Neutrophils % Seg Neuts % (Manual) Lymphocytes % (Manual) Monocytes % (Manual) Eosinophils % (Manual) Nucleated RBC % Seg Neutrophils # Seg Neutrophils # Man Lymphocytes # (Manual) Monocytes # (Manual) Eosinophils # (Manual) APTT POC ABG pH ABG pH POC ABG pCO2 POC ABG pO2 ABG pO2 ABG HCO3 ABG O2 Saturation ABG Base Excess ABG Hemoglobin VBG pH Oxyhemoglobin Sodium 147 H Potassium Chloride 107.4 H Carbon Dioxide BUN 28 H Creatinine Glucose 240 H POC Glucose 227 H 190 H Lactic Acid Calcium 8.3 L Phosphorus Total Bilirubin AST ALT C-Reactive Protein Total Protein Albumin Triglycerides Amylase Lipase Urine WBC (Auto) Vancomycin Trough Crossmatch 12/16/17 12/16/17 12/16/17 14:15 17:51 21:14 WBC RBC Hgb Hct MCV MCH MCHC RDW Plt Count Lymph % (Auto) Eos % (Auto) [place] # Eos # Baso # Seg Neutrophils % Seg Neuts % (Manual) Lymphocytes % (Manual) Monocytes % (Manual) Eosinophils % (Manual) Nucleated RBC % Seg Neutrophils # Seg Neutrophils # Man Lymphocytes # (Manual) Monocytes # (Manual) Eosinophils # (Manual) APTT POC ABG pH ABG pH POC ABG pCO2 POC ABG pO2 ABG pO2 ABG HCO3 ABG O2 Saturation ABG Base Excess ABG Hemoglobin VBG pH Oxyhemoglobin Sodium Potassium Chloride Carbon Dioxide BUN Creatinine Glucose POC Glucose 279 H 272 H 260 H Lactic Acid Calcium Phosphorus Total Bilirubin AST ALT C-Reactive Protein Total Protein Albumin Triglycerides Amylase Lipase Urine WBC (Auto) Vancomycin Trough Crossmatch 12/17/17 12/17/17 12/17/17 02:41 04:28 04:28 WBC 19.1 H RBC 3.50 L Hgb 11.4 L Hct 35.3 L MCV 101 H MCH 33 H MCHC RDW Plt Count 65 L Lymph % (Auto) Eos % (Auto) [place] # Eos # Baso # Seg Neutrophils % Seg Neuts % (Manual) Lymphocytes % (Manual) Monocytes % (Manual) Eosinophils % (Manual) Nucleated RBC % Seg Neutrophils # Seg Neutrophils # Man Lymphocytes # (Manual) Monocytes # (Manual) Eosinophils # (Manual) APTT POC ABG pH ABG pH POC ABG pCO2 POC ABG pO2 ABG pO2 ABG HCO3 ABG O2 Saturation ABG Base Excess ABG Hemoglobin VBG pH Oxyhemoglobin Sodium 153 H Potassium Chloride 111.2 H Carbon Dioxide 31 H BUN 28 H Creatinine Glucose 248 H POC Glucose 300 H Lactic Acid Calcium Phosphorus Total Bilirubin AST ALT C-Reactive Protein Total Protein Albumin Triglycerides Amylase Lipase Urine WBC (Auto) Vancomycin Trough Crossmatch 12/17/17 12/17/17 12/17/17 05:15 05:38 10:16 WBC RBC Hgb Hct MCV MCH MCHC RDW Plt Count Lymph % (Auto) Eos % (Auto) [place] # Eos # Baso # Seg Neutrophils % Seg Neuts % (Manual) Lymphocytes % (Manual) Monocytes % (Manual) Eosinophils % (Manual) Nucleated RBC % Seg Neutrophils # Seg Neutrophils # Man Lymphocytes # (Manual) Monocytes # (Manual) Eosinophils # (Manual) APTT POC ABG pH ABG pH POC ABG pCO2 50.3 H POC ABG pO2 120 H ABG pO2 ABG HCO3 ABG O2 Saturation ABG Base Excess ABG Hemoglobin VBG pH Oxyhemoglobin Sodium Potassium Chloride Carbon Dioxide BUN Creatinine Glucose POC Glucose 231 H 196 H Lactic Acid Calcium Phosphorus Total Bilirubin AST ALT C-Reactive Protein Total Protein Albumin Triglycerides Amylase Lipase Urine WBC (Auto) Vancomycin Trough Crossmatch 12/17/17 12/17/17 12/17/17 14:22 18:14 21:35 WBC RBC Hgb Hct MCV MCH MCHC RDW Plt Count Lymph % (Auto) Eos % (Auto) [place] # Eos # Baso # Seg Neutrophils % Seg Neuts % (Manual) Lymphocytes % (Manual) Monocytes % (Manual) Eosinophils % (Manual) Nucleated RBC % Seg Neutrophils # Seg Neutrophils # Man Lymphocytes # (Manual) Monocytes # (Manual) Eosinophils # (Manual) APTT POC ABG pH ABG pH POC ABG pCO2 POC ABG pO2 ABG pO2 ABG HCO3 ABG O2 Saturation ABG Base Excess ABG Hemoglobin VBG pH Oxyhemoglobin Sodium Potassium Chloride Carbon Dioxide BUN Creatinine Glucose POC Glucose 234 H 215 H 159 H Lactic Acid Calcium Phosphorus Total Bilirubin AST ALT C-Reactive Protein Total Protein Albumin Triglycerides Amylase Lipase Urine WBC (Auto) Vancomycin Trough Crossmatch 12/18/17 12/18/17 12/18/17 00:53 02:58 06:03 WBC RBC Hgb Hct MCV MCH MCHC RDW Plt Count Lymph % (Auto) Eos % (Auto) [place] # Eos # Baso # Seg Neutrophils % Seg Neuts % (Manual) Lymphocytes % (Manual) Monocytes % (Manual) Eosinophils % (Manual) Nucleated RBC % Seg Neutrophils # Seg Neutrophils # Man Lymphocytes # (Manual) Monocytes # (Manual) Eosinophils # (Manual) APTT POC ABG pH ABG pH POC ABG pCO2 56.4 H POC ABG pO2 46 L ABG pO2 ABG HCO3 ABG O2 Saturation ABG Base Excess ABG Hemoglobin VBG pH Oxyhemoglobin Sodium Potassium Chloride Carbon Dioxide BUN Creatinine Glucose POC Glucose 176 H 143 H Lactic Acid Calcium Phosphorus Total Bilirubin AST ALT C-Reactive Protein Total Protein Albumin Triglycerides Amylase Lipase Urine WBC (Auto) Vancomycin Trough Crossmatch 12/18/17 12/18/17 12/18/17 07:59 09:20 09:20 WBC 27.4 H RBC 3.57 L Hgb 11.4 L Hct MCV 101 H MCH MCHC RDW Plt Count 64 L Lymph % (Auto) Eos % (Auto) [place] # Eos # Baso # Seg Neutrophils % Seg Neuts % (Manual) Lymphocytes % (Manual) Monocytes % (Manual) Eosinophils % (Manual) Nucleated RBC % Seg Neutrophils # Seg Neutrophils # Man Lymphocytes # (Manual) Monocytes # (Manual) Eosinophils # (Manual) APTT POC ABG pH ABG pH POC ABG pCO2 POC ABG pO2 ABG pO2 ABG HCO3 ABG O2 Saturation ABG Base Excess ABG Hemoglobin VBG pH Oxyhemoglobin Sodium 152 H Potassium Chloride 107.9 H Carbon Dioxide 34 H BUN 23 H Creatinine 0.7 L Glucose 181 H POC Glucose 197 H Lactic Acid Calcium Phosphorus Total Bilirubin AST ALT C-Reactive Protein Total Protein Albumin Triglycerides Amylase Lipase Urine WBC (Auto) Vancomycin Trough Crossmatch 12/18/17 12/18/17 12/18/17 10:22 15:03 18:15 WBC RBC Hgb Hct MCV MCH MCHC RDW Plt Count Lymph % (Auto) Eos % (Auto) [place] # Eos # Baso # Seg Neutrophils % Seg Neuts % (Manual) Lymphocytes % (Manual) Monocytes % (Manual) Eosinophils % (Manual) Nucleated RBC % Seg Neutrophils # Seg Neutrophils # Man Lymphocytes # (Manual) Monocytes # (Manual) Eosinophils # (Manual) APTT POC ABG pH ABG pH POC ABG pCO2 POC ABG pO2 ABG pO2 ABG HCO3 ABG O2 Saturation ABG Base Excess ABG Hemoglobin VBG pH Oxyhemoglobin Sodium Potassium Chloride Carbon Dioxide BUN Creatinine Glucose POC Glucose 195 H 225 H 238 H Lactic Acid Calcium Phosphorus Total Bilirubin AST ALT C-Reactive Protein Total Protein Albumin Triglycerides Amylase Lipase Urine WBC (Auto) Vancomycin Trough Crossmatch 12/18/17 12/18/17 12/19/17 18:29 21:53 00:18 WBC RBC Hgb Hct MCV MCH MCHC RDW Plt Count Lymph % (Auto) Eos % (Auto) [place] # Eos # Baso # Seg Neutrophils % Seg Neuts % (Manual) Lymphocytes % (Manual) Monocytes % (Manual) Eosinophils % (Manual) Nucleated RBC % Seg Neutrophils # Seg Neutrophils # Man Lymphocytes # (Manual) Monocytes # (Manual) Eosinophils # (Manual) APTT POC ABG pH 7.476 H ABG pH POC ABG pCO2 50.4 H POC ABG pO2 158 H ABG pO2 ABG HCO3 ABG O2 Saturation ABG Base Excess ABG Hemoglobin VBG pH Oxyhemoglobin Sodium Potassium Chloride Carbon Dioxide BUN Creatinine Glucose POC Glucose 231 H 263 H Lactic Acid Calcium Phosphorus Total Bilirubin AST ALT C-Reactive Protein Total Protein Albumin Triglycerides Amylase Lipase Urine WBC (Auto) Vancomycin Trough Crossmatch 12/19/17 12/19/17 12/19/17 02:09 04:07 04:07 WBC 25.9 H RBC 3.25 L Hgb 10.6 L Hct 32.8 L MCV 101 H MCH 33 H MCHC RDW Plt Count 67 L Lymph % (Auto) Eos % (Auto) [place] # Eos # Baso # Seg Neutrophils % Seg Neuts % (Manual) Lymphocytes % (Manual) 4.0 L Monocytes % (Manual) Eosinophils % (Manual) Nucleated RBC % Seg Neutrophils # Seg Neutrophils # Man 14.8 H Lymphocytes # (Manual) 1.0 L Monocytes # (Manual) Eosinophils # (Manual) APTT POC ABG pH ABG pH POC ABG pCO2 POC ABG pO2 ABG pO2 ABG HCO3 ABG O2 Saturation ABG Base Excess ABG Hemoglobin VBG pH Oxyhemoglobin Sodium 148 H Potassium Chloride Carbon Dioxide BUN 31 H Creatinine Glucose 314 H POC Glucose 300 H Lactic Acid Calcium 8.1 L Phosphorus Total Bilirubin AST ALT C-Reactive Protein Total Protein Albumin Triglycerides Amylase Lipase Urine WBC (Auto) Vancomycin Trough Crossmatch 12/19/17 12/19/17 12/19/17 05:15 05:41 07:57 WBC RBC Hgb Hct MCV MCH MCHC RDW Plt Count Lymph % (Auto) Eos % (Auto) [place] # Eos # Baso # Seg Neutrophils % Seg Neuts % (Manual) Lymphocytes % (Manual) Monocytes % (Manual) Eosinophils % (Manual) Nucleated RBC % Seg Neutrophils # Seg Neutrophils # Man Lymphocytes # (Manual) Monocytes # (Manual) Eosinophils # (Manual) APTT POC ABG pH 7.507 H ABG pH POC ABG pCO2 POC ABG pO2 ABG pO2 ABG HCO3 ABG O2 Saturation ABG Base Excess ABG Hemoglobin VBG pH Oxyhemoglobin Sodium Potassium Chloride Carbon Dioxide BUN Creatinine Glucose POC Glucose 331 H 307 H Lactic Acid Calcium Phosphorus Total Bilirubin AST ALT C-Reactive Protein Total Protein Albumin Triglycerides Amylase Lipase Urine WBC (Auto) Vancomycin Trough Crossmatch 12/19/17 12/19/17 12/19/17 10:21 14:48 17:59 WBC RBC Hgb Hct MCV MCH MCHC RDW Plt Count Lymph % (Auto) Eos % (Auto) [place] # Eos # Baso # Seg Neutrophils % Seg Neuts % (Manual) Lymphocytes % (Manual) Monocytes % (Manual) Eosinophils % (Manual) Nucleated RBC % Seg Neutrophils # Seg Neutrophils # Man Lymphocytes # (Manual) Monocytes # (Manual) Eosinophils # (Manual) APTT POC ABG pH ABG pH POC ABG pCO2 POC ABG pO2 ABG pO2 ABG HCO3 ABG O2 Saturation ABG Base Excess ABG Hemoglobin VBG pH Oxyhemoglobin Sodium Potassium Chloride Carbon Dioxide BUN Creatinine Glucose POC Glucose 358 H 327 H 355 H Lactic Acid Calcium Phosphorus Total Bilirubin AST ALT C-Reactive Protein Total Protein Albumin Triglycerides Amylase Lipase Urine WBC (Auto) Vancomycin Trough Crossmatch 12/19/17 12/20/17 12/20/17 21:38 02:21 03:42 WBC RBC Hgb Hct MCV MCH MCHC RDW Plt Count Lymph % (Auto) Eos % (Auto) [place] # Eos # Baso # Seg Neutrophils % Seg Neuts % (Manual) Lymphocytes % (Manual) Monocytes % (Manual) Eosinophils % (Manual) Nucleated RBC % Seg Neutrophils # Seg Neutrophils # Man Lymphocytes # (Manual) Monocytes # (Manual) Eosinophils # (Manual) APTT POC ABG pH 7.494 H ABG pH POC ABG pCO2 POC ABG pO2 ABG pO2 ABG HCO3 ABG O2 Saturation ABG Base Excess ABG Hemoglobin VBG pH Oxyhemoglobin Sodium Potassium Chloride Carbon Dioxide BUN Creatinine Glucose POC Glucose 329 H 354 H Lactic Acid Calcium Phosphorus Total Bilirubin AST ALT C-Reactive Protein Total Protein Albumin Triglycerides Amylase Lipase Urine WBC (Auto) Vancomycin Trough Crossmatch 12/20/17 12/20/17 12/20/17 04:08 04:08 04:08 WBC 22.7 H RBC 3.26 L Hgb 10.6 L Hct 32.9 L MCV 101 H MCH 33 H MCHC RDW Plt Count 78 L Lymph % (Auto) Eos % (Auto) [place] # Eos # Baso # Seg Neutrophils % Seg Neuts % (Manual) 80.0 H Lymphocytes % (Manual) 6.0 L Monocytes % (Manual) Eosinophils % (Manual) Nucleated RBC % Seg Neutrophils # Seg Neutrophils # Man 18.2 H Lymphocytes # (Manual) Monocytes # (Manual) Eosinophils # (Manual) APTT POC ABG pH ABG pH POC ABG pCO2 POC ABG pO2 ABG pO2 ABG HCO3 ABG O2 Saturation ABG Base Excess ABG Hemoglobin VBG pH Oxyhemoglobin Sodium Potassium Chloride Carbon Dioxide 31 H BUN 30 H Creatinine 0.6 L Glucose 365 H POC Glucose Lactic Acid Calcium Phosphorus Total Bilirubin AST ALT C-Reactive Protein Total Protein Albumin Triglycerides 981 H Amylase Lipase Urine WBC (Auto) Vancomycin Trough Crossmatch 12/20/17 12/20/17 12/20/17 05:15 10:47 13:40 WBC RBC Hgb Hct MCV MCH MCHC RDW Plt Count Lymph % (Auto) Eos % (Auto) [place] # Eos # Baso # Seg Neutrophils % Seg Neuts % (Manual) Lymphocytes % (Manual) Monocytes % (Manual) Eosinophils % (Manual) Nucleated RBC % Seg Neutrophils # Seg Neutrophils # Man Lymphocytes # (Manual) Monocytes # (Manual) Eosinophils # (Manual) APTT POC ABG pH ABG pH POC ABG pCO2 POC ABG pO2 ABG pO2 ABG HCO3 ABG O2 Saturation ABG Base Excess ABG Hemoglobin VBG pH Oxyhemoglobin Sodium Potassium Chloride Carbon Dioxide BUN Creatinine Glucose POC Glucose 342 H 330 H Lactic Acid Calcium Phosphorus Total Bilirubin AST ALT C-Reactive Protein 7.10 H Total Protein Albumin Triglycerides Amylase Lipase Urine WBC (Auto) Vancomycin Trough Crossmatch 12/20/17 12/20/17 12/20/17 13:40 14:52 16:55 WBC RBC Hgb Hct MCV MCH MCHC RDW Plt Count Lymph % (Auto) Eos % (Auto) [place] # Eos # Baso # Seg Neutrophils % Seg Neuts % (Manual) Lymphocytes % (Manual) Monocytes % (Manual) Eosinophils % (Manual) Nucleated RBC % Seg Neutrophils # Seg Neutrophils # Man Lymphocytes # (Manual) Monocytes # (Manual) Eosinophils # (Manual) APTT POC ABG pH 7.484 H ABG pH POC ABG pCO2 POC ABG pO2 ABG pO2 ABG HCO3 ABG O2 Saturation ABG Base Excess ABG Hemoglobin VBG pH Oxyhemoglobin Sodium Potassium Chloride Carbon Dioxide BUN Creatinine Glucose POC Glucose 293 H Lactic Acid Calcium Phosphorus Total Bilirubin AST ALT C-Reactive Protein Total Protein Albumin Triglycerides 1042 H Amylase Lipase Urine WBC (Auto) Vancomycin Trough Crossmatch 12/20/17 12/20/17 12/21/17 18:00 21:58 02:05 WBC RBC Hgb Hct MCV MCH MCHC RDW Plt Count Lymph % (Auto) Eos % (Auto) [place] # Eos # Baso # Seg Neutrophils % Seg Neuts % (Manual) Lymphocytes % (Manual) Monocytes % (Manual) Eosinophils % (Manual) Nucleated RBC % Seg Neutrophils # Seg Neutrophils # Man Lymphocytes # (Manual) Monocytes # (Manual) Eosinophils # (Manual) APTT POC ABG pH ABG pH POC ABG pCO2 POC ABG pO2 ABG pO2 ABG HCO3 ABG O2 Saturation ABG Base Excess ABG Hemoglobin VBG pH Oxyhemoglobin Sodium Potassium Chloride Carbon Dioxide BUN Creatinine Glucose POC Glucose 268 H 272 H 229 H Lactic Acid Calcium Phosphorus Total Bilirubin AST ALT C-Reactive Protein Total Protein Albumin Triglycerides Amylase Lipase Urine WBC (Auto) Vancomycin Trough Crossmatch 12/21/17 12/21/17 12/21/17 03:59 06:23 08:57 WBC RBC Hgb Hct MCV MCH MCHC RDW Plt Count Lymph % (Auto) Eos % (Auto) [place] # Eos # Baso # Seg Neutrophils % Seg Neuts % (Manual) Lymphocytes % (Manual) Monocytes % (Manual) Eosinophils % (Manual) Nucleated RBC % Seg Neutrophils # Seg Neutrophils # Man Lymphocytes # (Manual) Monocytes # (Manual) Eosinophils # (Manual) APTT POC ABG pH 7.474 H ABG pH POC ABG pCO2 POC ABG pO2 71 L ABG pO2 ABG HCO3 ABG O2 Saturation ABG Base Excess ABG Hemoglobin VBG pH Oxyhemoglobin Sodium Potassium Chloride Carbon Dioxide BUN Creatinine Glucose POC Glucose 182 H 217 H Lactic Acid Calcium Phosphorus Total Bilirubin AST ALT C-Reactive Protein Total Protein Albumin Triglycerides Amylase Lipase Urine WBC (Auto) Vancomycin Trough Crossmatch 12/21/17 12/21/17 12/21/17 13:59 18:00 21:20 WBC RBC Hgb Hct MCV MCH MCHC RDW Plt Count Lymph % (Auto) Eos % (Auto) [place] # Eos # Baso # Seg Neutrophils % Seg Neuts % (Manual) Lymphocytes % (Manual) Monocytes % (Manual) Eosinophils % (Manual) Nucleated RBC % Seg Neutrophils # Seg Neutrophils # Man Lymphocytes # (Manual) Monocytes # (Manual) Eosinophils # (Manual) APTT POC ABG pH ABG pH POC ABG pCO2 POC ABG pO2 ABG pO2 ABG HCO3 ABG O2 Saturation ABG Base Excess ABG Hemoglobin VBG pH Oxyhemoglobin Sodium Potassium Chloride Carbon Dioxide BUN Creatinine Glucose POC Glucose 185 H 176 H 187 H Lactic Acid Calcium Phosphorus Total Bilirubin AST ALT C-Reactive Protein Total Protein Albumin Triglycerides Amylase Lipase Urine WBC (Auto) Vancomycin Trough Crossmatch 12/21/17 12/22/17 12/22/17 23:48 04:39 05:30 WBC RBC Hgb Hct MCV MCH MCHC RDW Plt Count Lymph % (Auto) Eos % (Auto) [place] # Eos # Baso # Seg Neutrophils % Seg Neuts % (Manual) Lymphocytes % (Manual) Monocytes % (Manual) Eosinophils % (Manual) Nucleated RBC % Seg Neutrophils # Seg Neutrophils # Man Lymphocytes # (Manual) Monocytes # (Manual) Eosinophils # (Manual) APTT POC ABG pH 7.528 H ABG pH POC ABG pCO2 POC ABG pO2 63 L ABG pO2 ABG HCO3 ABG O2 Saturation ABG Base Excess ABG Hemoglobin VBG pH Oxyhemoglobin Sodium Potassium Chloride Carbon Dioxide BUN Creatinine Glucose POC Glucose 126 H 117 H Lactic Acid Calcium Phosphorus Total Bilirubin AST ALT C-Reactive Protein Total Protein Albumin Triglycerides Amylase Lipase Urine WBC (Auto) Vancomycin Trough Crossmatch 12/22/17 12/22/17 12/22/17 09:12 10:34 10:34 WBC 29.5 H RBC 3.44 L Hgb 11.2 L Hct 34.2 L MCV 99 H MCH 33 H MCHC RDW 13.1 L Plt Count 97 L Lymph % (Auto) Eos % (Auto) [place] # Eos # Baso # Seg Neutrophils % Seg Neuts % (Manual) 88.0 H Lymphocytes % (Manual) 5.0 L Monocytes % (Manual) Eosinophils % (Manual) Nucleated RBC % Seg Neutrophils # Seg Neutrophils # Man 26.0 H Lymphocytes # (Manual) Monocytes # (Manual) Eosinophils # (Manual) APTT POC ABG pH ABG pH POC ABG pCO2 POC ABG pO2 ABG pO2 ABG HCO3 ABG O2 Saturation ABG Base Excess ABG Hemoglobin VBG pH Oxyhemoglobin Sodium 146 H Potassium 3.1 L Chloride Carbon Dioxide BUN 25 H Creatinine 0.7 L Glucose 146 H POC Glucose 168 H Lactic Acid Calcium 8.1 L Phosphorus Total Bilirubin AST ALT C-Reactive Protein Total Protein Albumin Triglycerides Amylase Lipase Urine WBC (Auto) Vancomycin Trough Crossmatch 12/22/17 12/22/17 12/22/17 14:51 17:21 21:43 WBC RBC Hgb Hct MCV MCH MCHC RDW Plt Count Lymph % (Auto) Eos % (Auto) [place] # Eos # Baso # Seg Neutrophils % Seg Neuts % (Manual) Lymphocytes % (Manual) Monocytes % (Manual) Eosinophils % (Manual) Nucleated RBC % Seg Neutrophils # Seg Neutrophils # Man Lymphocytes # (Manual) Monocytes # (Manual) Eosinophils # (Manual) APTT POC ABG pH ABG pH POC ABG pCO2 POC ABG pO2 ABG pO2 ABG HCO3 ABG O2 Saturation ABG Base Excess ABG Hemoglobin VBG pH Oxyhemoglobin Sodium Potassium Chloride Carbon Dioxide BUN Creatinine Glucose POC Glucose 125 H 110 H 153 H Lactic Acid Calcium Phosphorus Total Bilirubin AST ALT C-Reactive Protein Total Protein Albumin Triglycerides Amylase Lipase Urine WBC (Auto) Vancomycin Trough Crossmatch 12/23/17 12/23/17 12/23/17 04:33 05:28 09:25 WBC 31.4 H RBC 3.05 L Hgb 9.8 L Hct 30.2 L MCV 99 H MCH MCHC RDW 12.9 L Plt Count 101 L Lymph % (Auto) Eos % (Auto) [place] # Eos # Baso # Seg Neutrophils % Seg Neuts % (Manual) 97 H Lymphocytes % (Manual) 2 L Monocytes % (Manual) Eosinophils % (Manual) Nucleated RBC % Seg Neutrophils # Seg Neutrophils # Man 31.1 H Lymphocytes # (Manual) 0.5 L Monocytes # (Manual) Eosinophils # (Manual) APTT POC ABG pH 7.573 H ABG pH POC ABG pCO2 31.0 L POC ABG pO2 63 L ABG pO2 ABG HCO3 ABG O2 Saturation ABG Base Excess ABG Hemoglobin VBG pH Oxyhemoglobin Sodium Potassium Chloride Carbon Dioxide BUN Creatinine Glucose POC Glucose 124 H Lactic Acid Calcium Phosphorus Total Bilirubin AST ALT C-Reactive Protein Total Protein Albumin Triglycerides Amylase Lipase Urine WBC (Auto) Vancomycin Trough Crossmatch 12/23/17 12/23/17 12/23/17 09:25 10:08 14:20 WBC RBC Hgb Hct MCV MCH MCHC RDW Plt Count Lymph % (Auto) Eos % (Auto) [place] # Eos # Baso # Seg Neutrophils % Seg Neuts % (Manual) Lymphocytes % (Manual) Monocytes % (Manual) Eosinophils % (Manual) Nucleated RBC % Seg Neutrophils # Seg Neutrophils # Man Lymphocytes # (Manual) Monocytes # (Manual) Eosinophils # (Manual) APTT POC ABG pH ABG pH POC ABG pCO2 POC ABG pO2 ABG pO2 ABG HCO3 ABG O2 Saturation ABG Base Excess ABG Hemoglobin VBG pH Oxyhemoglobin Sodium Potassium 3.1 L Chloride Carbon Dioxide BUN Creatinine 0.6 L Glucose 169 H POC Glucose 171 H 211 H Lactic Acid Calcium 7.9 L Phosphorus Total Bilirubin AST ALT C-Reactive Protein Total Protein Albumin Triglycerides Amylase Lipase Urine WBC (Auto) Vancomycin Trough Crossmatch 12/23/17 12/23/17 12/24/17 18:59 21:49 01:47 WBC RBC Hgb Hct MCV MCH MCHC RDW Plt Count Lymph % (Auto) Eos % (Auto) [place] # Eos # Baso # Seg Neutrophils % Seg Neuts % (Manual) Lymphocytes % (Manual) Monocytes % (Manual) Eosinophils % (Manual) Nucleated RBC % Seg Neutrophils # Seg Neutrophils # Man Lymphocytes # (Manual) Monocytes # (Manual) Eosinophils # (Manual) APTT POC ABG pH ABG pH POC ABG pCO2 POC ABG pO2 ABG pO2 ABG HCO3 ABG O2 Saturation ABG Base Excess ABG Hemoglobin VBG pH Oxyhemoglobin Sodium Potassium Chloride Carbon Dioxide BUN Creatinine Glucose POC Glucose 175 H 146 H 143 H Lactic Acid Calcium Phosphorus Total Bilirubin AST ALT C-Reactive Protein Total Protein Albumin Triglycerides Amylase Lipase Urine WBC (Auto) Vancomycin Trough Crossmatch 12/24/17 12/24/17 12/24/17 05:40 10:12 13:12 WBC RBC Hgb Hct MCV MCH MCHC RDW Plt Count Lymph % (Auto) Eos % (Auto) [place] # Eos # Baso # Seg Neutrophils % Seg Neuts % (Manual) Lymphocytes % (Manual) Monocytes % (Manual) Eosinophils % (Manual) Nucleated RBC % Seg Neutrophils # Seg Neutrophils # Man Lymphocytes # (Manual) Monocytes # (Manual) Eosinophils # (Manual) APTT POC ABG pH 7.558 H ABG pH POC ABG pCO2 27.6 L POC ABG pO2 71 L ABG pO2 ABG HCO3 ABG O2 Saturation ABG Base Excess ABG Hemoglobin VBG pH Oxyhemoglobin Sodium Potassium Chloride Carbon Dioxide BUN Creatinine Glucose POC Glucose 118 H 111 H Lactic Acid Calcium Phosphorus Total Bilirubin AST ALT C-Reactive Protein Total Protein Albumin Triglycerides Amylase Lipase Urine WBC (Auto) Vancomycin Trough Crossmatch 12/24/17 12/24/17 12/24/17 16:26 20:44 21:49 WBC RBC Hgb Hct MCV MCH MCHC RDW Plt Count Lymph % (Auto) Eos % (Auto) [place] # Eos # Baso # Seg Neutrophils % Seg Neuts % (Manual) Lymphocytes % (Manual) Monocytes % (Manual) Eosinophils % (Manual) Nucleated RBC % Seg Neutrophils # Seg Neutrophils # Man Lymphocytes # (Manual) Monocytes # (Manual) Eosinophils # (Manual) APTT POC ABG pH ABG pH POC ABG pCO2 POC ABG pO2 ABG pO2 ABG HCO3 ABG O2 Saturation ABG Base Excess ABG Hemoglobin VBG pH Oxyhemoglobin Sodium Potassium Chloride Carbon Dioxide BUN Creatinine Glucose POC Glucose 113 H 124 H 115 H Lactic Acid Calcium Phosphorus Total Bilirubin AST ALT C-Reactive Protein Total Protein Albumin Triglycerides Amylase Lipase Urine WBC (Auto) Vancomycin Trough Crossmatch 12/24/17 12/25/17 12/25/17 Unknown 02:26 03:38 WBC RBC Hgb Hct MCV MCH MCHC RDW Plt Count Lymph % (Auto) Eos % (Auto) [place] # Eos # Baso # Seg Neutrophils % Seg Neuts % (Manual) Lymphocytes % (Manual) Monocytes % (Manual) Eosinophils % (Manual) Nucleated RBC % Seg Neutrophils # Seg Neutrophils # Man Lymphocytes # (Manual) Monocytes # (Manual) Eosinophils # (Manual) APTT POC ABG pH 7.503 H ABG pH POC ABG pCO2 POC ABG pO2 66 L ABG pO2 ABG HCO3 ABG O2 Saturation ABG Base Excess ABG Hemoglobin VBG pH Oxyhemoglobin Sodium Potassium 3.0 L Chloride Carbon Dioxide BUN Creatinine 0.5 L Glucose 166 H POC Glucose 106 H Lactic Acid Calcium 7.8 L Phosphorus Total Bilirubin AST ALT C-Reactive Protein Total Protein Albumin Triglycerides Amylase Lipase Urine WBC (Auto) Vancomycin Trough Crossmatch 12/25/17 12/25/17 12/25/17 04:58 12:58 15:06 WBC RBC Hgb Hct MCV MCH MCHC RDW Plt Count Lymph % (Auto) Eos % (Auto) [place] # Eos # Baso # Seg Neutrophils % Seg Neuts % (Manual) Lymphocytes % (Manual) Monocytes % (Manual) Eosinophils % (Manual) Nucleated RBC % Seg Neutrophils # Seg Neutrophils # Man Lymphocytes # (Manual) Monocytes # (Manual) Eosinophils # (Manual) APTT POC ABG pH ABG pH POC ABG pCO2 POC ABG pO2 ABG pO2 ABG HCO3 ABG O2 Saturation ABG Base Excess ABG Hemoglobin VBG pH Oxyhemoglobin Sodium Potassium Chloride Carbon Dioxide BUN Creatinine Glucose POC Glucose 113 H 118 H Lactic Acid Calcium Phosphorus Total Bilirubin AST ALT C-Reactive Protein Total Protein Albumin Triglycerides Amylase Lipase Urine WBC (Auto) Vancomycin Trough 22.5 H Crossmatch 12/25/17 12/25/17 12/25/17 17:59 21:33 Unknown WBC 20.5 H RBC 2.75 L Hgb 9.1 L Hct 27.1 L MCV 99 H MCH 33 H MCHC RDW Plt Count 126 L Lymph % (Auto) Eos % (Auto) [place] # Eos # Baso # Seg Neutrophils % Seg Neuts % (Manual) 89.0 H Lymphocytes % (Manual) 6.0 L Monocytes % (Manual) Eosinophils % (Manual) Nucleated RBC % Seg Neutrophils # Seg Neutrophils # Man 18.2 H Lymphocytes # (Manual) Monocytes # (Manual) Eosinophils # (Manual) APTT POC ABG pH ABG pH POC ABG pCO2 POC ABG pO2 ABG pO2 ABG HCO3 ABG O2 Saturation ABG Base Excess ABG Hemoglobin VBG pH Oxyhemoglobin Sodium Potassium Chloride Carbon Dioxide BUN Creatinine Glucose POC Glucose 145 H 167 H Lactic Acid Calcium Phosphorus Total Bilirubin AST ALT C-Reactive Protein Total Protein Albumin Triglycerides Amylase Lipase Urine WBC (Auto) Vancomycin Trough Crossmatch 12/25/17 12/26/17 12/26/17 Unknown 02:26 05:29 WBC RBC Hgb Hct MCV MCH MCHC RDW Plt Count Lymph % (Auto) Eos % (Auto) [place] # Eos # Baso # Seg Neutrophils % Seg Neuts % (Manual) Lymphocytes % (Manual) Monocytes % (Manual) Eosinophils % (Manual) Nucleated RBC % Seg Neutrophils # Seg Neutrophils # Man Lymphocytes # (Manual) Monocytes # (Manual) Eosinophils # (Manual) APTT POC ABG pH ABG pH POC ABG pCO2 POC ABG pO2 ABG pO2 ABG HCO3 ABG O2 Saturation ABG Base Excess ABG Hemoglobin VBG pH Oxyhemoglobin Sodium Potassium 2.8 L* Chloride Carbon Dioxide BUN Creatinine 0.6 L Glucose POC Glucose 167 H 216 H Lactic Acid Calcium 7.4 L Phosphorus Total Bilirubin AST ALT C-Reactive Protein Total Protein Albumin Triglycerides Amylase Lipase Urine WBC (Auto) Vancomycin Trough Crossmatch 12/26/17 12/26/17 12/26/17 10:21 14:30 18:35 WBC RBC Hgb Hct MCV MCH MCHC RDW Plt Count Lymph % (Auto) Eos % (Auto) [place] # Eos # Baso # Seg Neutrophils % Seg Neuts % (Manual) Lymphocytes % (Manual) Monocytes % (Manual) Eosinophils % (Manual) Nucleated RBC % Seg Neutrophils # Seg Neutrophils # Man Lymphocytes # (Manual) Monocytes # (Manual) Eosinophils # (Manual) APTT POC ABG pH ABG pH POC ABG pCO2 POC ABG pO2 ABG pO2 ABG HCO3 ABG O2 Saturation ABG Base Excess ABG Hemoglobin VBG pH Oxyhemoglobin Sodium Potassium Chloride Carbon Dioxide BUN Creatinine Glucose POC Glucose 164 H 157 H 146 H Lactic Acid Calcium Phosphorus Total Bilirubin AST ALT C-Reactive Protein Total Protein Albumin Triglycerides Amylase Lipase Urine WBC (Auto) Vancomycin Trough Crossmatch 12/26/17 12/26/17 12/27/17 21:21 Unknown 01:54 WBC RBC Hgb Hct MCV MCH MCHC RDW Plt Count Lymph % (Auto) Eos % (Auto) [place] # Eos # Baso # Seg Neutrophils % Seg Neuts % (Manual) Lymphocytes % (Manual) Monocytes % (Manual) Eosinophils % (Manual) Nucleated RBC % Seg Neutrophils # Seg Neutrophils # Man Lymphocytes # (Manual) Monocytes # (Manual) Eosinophils # (Manual) APTT POC ABG pH ABG pH POC ABG pCO2 POC ABG pO2 ABG pO2 ABG HCO3 ABG O2 Saturation ABG Base Excess ABG Hemoglobin VBG pH Oxyhemoglobin Sodium Potassium 3.0 L Chloride Carbon Dioxide BUN Creatinine 0.5 L Glucose 166 H POC Glucose 132 H 157 H Lactic Acid Calcium 7.8 L Phosphorus Total Bilirubin AST ALT C-Reactive Protein Total Protein Albumin Triglycerides Amylase Lipase Urine WBC (Auto) Vancomycin Trough Crossmatch 12/27/17 12/27/17 12/27/17 05:20 05:20 05:44 WBC 26.4 H RBC 2.83 L Hgb 9.3 L Hct 27.6 L MCV 98 H MCH 33 H MCHC RDW Plt Count Lymph % (Auto) Eos % (Auto) [place] # Eos # Baso # Seg Neutrophils % Seg Neuts % (Manual) 85.0 H Lymphocytes % (Manual) 5.0 L Monocytes % (Manual) Eosinophils % (Manual) Nucleated RBC % Seg Neutrophils # Seg Neutrophils # Man 22.4 H Lymphocytes # (Manual) Monocytes # (Manual) Eosinophils # (Manual) 0.5 H APTT POC ABG pH ABG pH POC ABG pCO2 POC ABG pO2 ABG pO2 ABG HCO3 ABG O2 Saturation ABG Base Excess ABG Hemoglobin VBG pH Oxyhemoglobin Sodium Potassium 2.3 L* D Chloride Carbon Dioxide BUN 7 L Creatinine 0.6 L Glucose 123 H POC Glucose 128 H Lactic Acid Calcium 8.1 L Phosphorus Total Bilirubin AST ALT C-Reactive Protein Total Protein Albumin Triglycerides Amylase Lipase Urine WBC (Auto) Vancomycin Trough Crossmatch 12/27/17 12/27/17 12/27/17 10:04 14:44 15:30 WBC RBC Hgb Hct MCV MCH MCHC RDW Plt Count Lymph % (Auto) Eos % (Auto) [place] # Eos # Baso # Seg Neutrophils % Seg Neuts % (Manual) Lymphocytes % (Manual) Monocytes % (Manual) Eosinophils % (Manual) Nucleated RBC % Seg Neutrophils # Seg Neutrophils # Man Lymphocytes # (Manual) Monocytes # (Manual) Eosinophils # (Manual) APTT POC ABG pH ABG pH POC ABG pCO2 POC ABG pO2 ABG pO2 ABG HCO3 ABG O2 Saturation ABG Base Excess ABG Hemoglobin VBG pH Oxyhemoglobin Sodium Potassium 3.1 L D Chloride Carbon Dioxide BUN Creatinine Glucose POC Glucose 115 H 128 H Lactic Acid Calcium Phosphorus Total Bilirubin AST ALT C-Reactive Protein Total Protein Albumin Triglycerides Amylase Lipase Urine WBC (Auto) Vancomycin Trough Crossmatch 12/28/17 12/28/17 12/28/17 00:39 02:13 05:17 WBC RBC Hgb Hct MCV MCH MCHC RDW Plt Count Lymph % (Auto) Eos % (Auto) [place] # Eos # Baso # Seg Neutrophils % Seg Neuts % (Manual) Lymphocytes % (Manual) Monocytes % (Manual) Eosinophils % (Manual) Nucleated RBC % Seg Neutrophils # Seg Neutrophils # Man Lymphocytes # (Manual) Monocytes # (Manual) Eosinophils # (Manual) APTT POC ABG pH ABG pH 7.497 H POC ABG pCO2 POC ABG pO2 ABG pO2 71.4 L ABG HCO3 29.9 H ABG O2 Saturation ABG Base Excess 6.2 H ABG Hemoglobin 7.9 L VBG pH Oxyhemoglobin 94.9 L Sodium Potassium Chloride Carbon Dioxide BUN Creatinine Glucose POC Glucose 112 H 108 H Lactic Acid Calcium Phosphorus Total Bilirubin AST ALT C-Reactive Protein Total Protein Albumin Triglycerides Amylase Lipase Urine WBC (Auto) Vancomycin Trough Crossmatch 12/28/17 12/28/17 12/28/17 08:47 08:47 09:10 WBC 28.1 H RBC 2.76 L Hgb 9.1 L Hct 27.0 L MCV 98 H MCH 33 H MCHC RDW Plt Count Lymph % (Auto) Eos % (Auto) [place] # Eos # Baso # Seg Neutrophils % Seg Neuts % (Manual) Lymphocytes % (Manual) Monocytes % (Manual) Eosinophils % (Manual) Nucleated RBC % Seg Neutrophils # Seg Neutrophils # Man Lymphocytes # (Manual) Monocytes # (Manual) Eosinophils # (Manual) APTT POC ABG pH ABG pH POC ABG pCO2 POC ABG pO2 ABG pO2 ABG HCO3 ABG O2 Saturation ABG Base Excess ABG Hemoglobin VBG pH Oxyhemoglobin Sodium Potassium 2.2 L* D Chloride Carbon Dioxide BUN 5 L Creatinine 0.5 L Glucose 106 H POC Glucose Lactic Acid Calcium 8.3 L Phosphorus 2.20 L Total Bilirubin AST ALT C-Reactive Protein Total Protein Albumin Triglycerides Amylase Lipase Urine WBC (Auto) Vancomycin Trough Crossmatch 12/28/17 12/28/17 12/28/17 13:28 14:22 18:48 WBC RBC Hgb Hct MCV MCH MCHC RDW Plt Count Lymph % (Auto) Eos % (Auto) [place] # Eos # Baso # Seg Neutrophils % Seg Neuts % (Manual) Lymphocytes % (Manual) Monocytes % (Manual) Eosinophils % (Manual) Nucleated RBC % Seg Neutrophils # Seg Neutrophils # Man Lymphocytes # (Manual) Monocytes # (Manual) Eosinophils # (Manual) APTT POC ABG pH ABG pH 7.476 H POC ABG pCO2 POC ABG pO2 ABG pO2 167.7 H ABG HCO3 30.9 H ABG O2 Saturation 99.1 H ABG Base Excess 6.7 H ABG Hemoglobin 8.5 L VBG pH Oxyhemoglobin Sodium Potassium Chloride Carbon Dioxide BUN Creatinine Glucose POC Glucose 141 H 129 H Lactic Acid Calcium Phosphorus Total Bilirubin AST ALT C-Reactive Protein Total Protein Albumin Triglycerides Amylase Lipase Urine WBC (Auto) Vancomycin Trough Crossmatch 12/28/17 12/29/17 12/29/17 21:22 02:45 05:11 WBC RBC Hgb Hct MCV MCH MCHC RDW Plt Count Lymph % (Auto) Eos % (Auto) [place] # Eos # Baso # Seg Neutrophils % Seg Neuts % (Manual) Lymphocytes % (Manual) Monocytes % (Manual) Eosinophils % (Manual) Nucleated RBC % Seg Neutrophils # Seg Neutrophils # Man Lymphocytes # (Manual) Monocytes # (Manual) Eosinophils # (Manual) APTT POC ABG pH ABG pH POC ABG pCO2 POC ABG pO2 ABG pO2 ABG HCO3 ABG O2 Saturation ABG Base Excess ABG Hemoglobin VBG pH Oxyhemoglobin Sodium Potassium Chloride Carbon Dioxide BUN Creatinine Glucose POC Glucose 123 H 138 H 138 H Lactic Acid Calcium Phosphorus Total Bilirubin AST ALT C-Reactive Protein Total Protein Albumin Triglycerides Amylase Lipase Urine WBC (Auto) Vancomycin Trough Crossmatch 12/29/17 12/29/17 12/29/17 05:50 08:04 08:04 WBC 20.8 H RBC 2.26 L Hgb 7.5 L Hct 22.7 L MCV 100 H MCH 33 H MCHC RDW Plt Count Lymph % (Auto) Eos % (Auto) [place] # Eos # Baso # Seg Neutrophils % Seg Neuts % (Manual) 93.0 H Lymphocytes % (Manual) 2.0 L Monocytes % (Manual) Eosinophils % (Manual) Nucleated RBC % Seg Neutrophils # Seg Neutrophils # Man 19.3 H Lymphocytes # (Manual) 0.4 L Monocytes # (Manual) Eosinophils # (Manual) 0.7 H APTT POC ABG pH ABG pH 7.467 H POC ABG pCO2 POC ABG pO2 ABG pO2 ABG HCO3 28.2 H ABG O2 Saturation ABG Base Excess 4.0 H ABG Hemoglobin < 5.1 L VBG pH Oxyhemoglobin Sodium Potassium 3.0 L D Chloride Carbon Dioxide BUN Creatinine 0.5 L Glucose 147 H POC Glucose Lactic Acid Calcium 7.8 L Phosphorus Total Bilirubin AST ALT C-Reactive Protein Total Protein 5.6 L Albumin 2.4 L Triglycerides Amylase Lipase Urine WBC (Auto) Vancomycin Trough Crossmatch 12/29/17 12/29/17 12/29/17 08:20 10:59 14:09 WBC RBC Hgb Hct MCV MCH MCHC RDW Plt Count Lymph % (Auto) Eos % (Auto) [place] # Eos # Baso # Seg Neutrophils % Seg Neuts % (Manual) Lymphocytes % (Manual) Monocytes % (Manual) Eosinophils % (Manual) Nucleated RBC % Seg Neutrophils # Seg Neutrophils # Man Lymphocytes # (Manual) Monocytes # (Manual) Eosinophils # (Manual) APTT POC ABG pH ABG pH POC ABG pCO2 POC ABG pO2 ABG pO2 ABG HCO3 ABG O2 Saturation ABG Base Excess ABG Hemoglobin VBG pH Oxyhemoglobin Sodium Potassium Chloride Carbon Dioxide BUN Creatinine Glucose POC Glucose 153 H 186 H 183 H Lactic Acid Calcium Phosphorus Total Bilirubin AST ALT C-Reactive Protein Total Protein Albumin Triglycerides Amylase Lipase Urine WBC (Auto) Vancomycin Trough Crossmatch 12/29/17 12/29/17 12/29/17 18:03 22:05 22:56 WBC RBC Hgb Hct MCV MCH MCHC RDW Plt Count Lymph % (Auto) Eos % (Auto) [place] # Eos # Baso # Seg Neutrophils % Seg Neuts % (Manual) Lymphocytes % (Manual) Monocytes % (Manual) Eosinophils % (Manual) Nucleated RBC % Seg Neutrophils # Seg Neutrophils # Man Lymphocytes # (Manual) Monocytes # (Manual) Eosinophils # (Manual) APTT POC ABG pH ABG pH POC ABG pCO2 POC ABG pO2 ABG pO2 ABG HCO3 ABG O2 Saturation ABG Base Excess ABG Hemoglobin VBG pH Oxyhemoglobin Sodium Potassium Chloride Carbon Dioxide BUN Creatinine Glucose POC Glucose 159 H 146 H 179 H Lactic Acid Calcium Phosphorus Total Bilirubin AST ALT C-Reactive Protein Total Protein Albumin Triglycerides Amylase Lipase Urine WBC (Auto) Vancomycin Trough Crossmatch 12/30/17 12/30/17 12/30/17 02:03 04:50 04:50 WBC 18.3 H RBC 2.22 L Hgb 7.4 L Hct 23.0 L MCV 104 H MCH 33 H MCHC RDW Plt Count 137 L Lymph % (Auto) 9.0 L Eos % (Auto) [place] # Eos # 0.5 H Baso # Seg Neutrophils % 84.9 H Seg Neuts % (Manual) Lymphocytes % (Manual) Monocytes % (Manual) Eosinophils % (Manual) Nucleated RBC % Seg Neutrophils # 15.6 H Seg Neutrophils # Man Lymphocytes # (Manual) Monocytes # (Manual) Eosinophils # (Manual) APTT POC ABG pH ABG pH POC ABG pCO2 POC ABG pO2 ABG pO2 ABG HCO3 ABG O2 Saturation ABG Base Excess ABG Hemoglobin VBG pH Oxyhemoglobin Sodium 147 H Potassium 3.1 L D Chloride 107.5 H Carbon Dioxide BUN Creatinine 0.5 L Glucose 120 H POC Glucose 118 H Lactic Acid Calcium 7.4 L Phosphorus Total Bilirubin AST ALT C-Reactive Protein Total Protein Albumin Triglycerides Amylase Lipase Urine WBC (Auto) Vancomycin Trough Crossmatch 12/30/17 12/30/17 12/30/17 05:04 13:53 17:33 WBC RBC Hgb Hct MCV MCH MCHC RDW Plt Count Lymph % (Auto) Eos % (Auto) [place] # Eos # Baso # Seg Neutrophils % Seg Neuts % (Manual) Lymphocytes % (Manual) Monocytes % (Manual) Eosinophils % (Manual) Nucleated RBC % Seg Neutrophils # Seg Neutrophils # Man Lymphocytes # (Manual) Monocytes # (Manual) Eosinophils # (Manual) APTT POC ABG pH ABG pH POC ABG pCO2 POC ABG pO2 ABG pO2 ABG HCO3 ABG O2 Saturation ABG Base Excess ABG Hemoglobin VBG pH Oxyhemoglobin Sodium Potassium Chloride Carbon Dioxide BUN Creatinine Glucose POC Glucose 150 H 113 H 145 H Lactic Acid Calcium Phosphorus Total Bilirubin AST ALT C-Reactive Protein Total Protein Albumin Triglycerides Amylase Lipase Urine WBC (Auto) Vancomycin Trough Crossmatch 12/31/17 12/31/17 12/31/17 01:54 03:15 03:15 WBC 17.1 H RBC 2.08 L Hgb 6.9 L Hct 20.6 L MCV 99 H MCH 33 H MCHC RDW 13.1 L Plt Count Lymph % (Auto) 10.5 L Eos % (Auto) [place] # Eos # 0.6 H Baso # Seg Neutrophils % 82.3 H Seg Neuts % (Manual) Lymphocytes % (Manual) Monocytes % (Manual) Eosinophils % (Manual) Nucleated RBC % Seg Neutrophils # 14.0 H Seg Neutrophils # Man Lymphocytes # (Manual) Monocytes # (Manual) Eosinophils # (Manual) APTT POC ABG pH ABG pH POC ABG pCO2 POC ABG pO2 ABG pO2 ABG HCO3 ABG O2 Saturation ABG Base Excess ABG Hemoglobin VBG pH Oxyhemoglobin Sodium Potassium 3.5 L Chloride Carbon Dioxide BUN Creatinine 0.6 L Glucose POC Glucose 69 L Lactic Acid Calcium 7.8 L Phosphorus Total Bilirubin AST ALT C-Reactive Protein Total Protein Albumin Triglycerides Amylase Lipase Urine WBC (Auto) Vancomycin Trough Crossmatch 12/31/17 12/31/17 12/31/17 05:15 09:25 10:17 WBC RBC Hgb Hct MCV MCH MCHC RDW Plt Count Lymph % (Auto) Eos % (Auto) [place] # Eos # Baso # Seg Neutrophils % Seg Neuts % (Manual) Lymphocytes % (Manual) Monocytes % (Manual) Eosinophils % (Manual) Nucleated RBC % Seg Neutrophils # Seg Neutrophils # Man Lymphocytes # (Manual) Monocytes # (Manual) Eosinophils # (Manual) APTT POC ABG pH ABG pH 7.516 H POC ABG pCO2 POC ABG pO2 ABG pO2 69.2 L ABG HCO3 28.7 H ABG O2 Saturation ABG Base Excess 5.3 H ABG Hemoglobin 6.6 L VBG pH Oxyhemoglobin 93.8 L Sodium Potassium Chloride Carbon Dioxide BUN Creatinine Glucose POC Glucose 143 H Lactic Acid Calcium Phosphorus Total Bilirubin AST ALT C-Reactive Protein Total Protein Albumin Triglycerides Amylase Lipase Urine WBC (Auto) Vancomycin Trough Crossmatch See Detail 12/31/17 12/31/17 12/31/17 14:20 18:30 21:40 WBC RBC Hgb Hct MCV MCH MCHC RDW Plt Count Lymph % (Auto) Eos % (Auto) [place] # Eos # Baso # Seg Neutrophils % Seg Neuts % (Manual) Lymphocytes % (Manual) Monocytes % (Manual) Eosinophils % (Manual) Nucleated RBC % Seg Neutrophils # Seg Neutrophils # Man Lymphocytes # (Manual) Monocytes # (Manual) Eosinophils # (Manual) APTT POC ABG pH ABG pH POC ABG pCO2 POC ABG pO2 ABG pO2 ABG HCO3 ABG O2 Saturation ABG Base Excess ABG Hemoglobin VBG pH Oxyhemoglobin Sodium Potassium Chloride Carbon Dioxide BUN Creatinine Glucose POC Glucose 175 H 137 H 182 H Lactic Acid Calcium Phosphorus Total Bilirubin AST ALT C-Reactive Protein Total Protein Albumin Triglycerides Amylase Lipase Urine WBC (Auto) Vancomycin Trough Crossmatch 12/31/17 01/01/18 01/01/18 23:34 02:09 04:00 WBC 16.4 H RBC 2.41 L Hgb 7.8 L Hct 23.6 L MCV 98 H MCH 33 H MCHC RDW Plt Count Lymph % (Auto) 10.7 L Eos % (Auto) [place] # Eos # 0.7 H Baso # 0.2 H Seg Neutrophils % 79.0 H Seg Neuts % (Manual) Lymphocytes % (Manual) Monocytes % (Manual) Eosinophils % (Manual) Nucleated RBC % Seg Neutrophils # 12.9 H Seg Neutrophils # Man Lymphocytes # (Manual) Monocytes # (Manual) Eosinophils # (Manual) APTT POC ABG pH ABG pH POC ABG pCO2 POC ABG pO2 ABG pO2 ABG HCO3 ABG O2 Saturation ABG Base Excess ABG Hemoglobin VBG pH Oxyhemoglobin Sodium Potassium Chloride Carbon Dioxide BUN Creatinine Glucose POC Glucose 132 H 117 H Lactic Acid Calcium Phosphorus Total Bilirubin AST ALT C-Reactive Protein Total Protein Albumin Triglycerides Amylase Lipase Urine WBC (Auto) Vancomycin Trough Crossmatch 01/01/18 01/01/18 01/01/18 04:00 04:04 05:32 WBC RBC Hgb Hct MCV MCH MCHC RDW Plt Count Lymph % (Auto) Eos % (Auto) [place] # Eos # Baso # Seg Neutrophils % Seg Neuts % (Manual) Lymphocytes % (Manual) Monocytes % (Manual) Eosinophils % (Manual) Nucleated RBC % Seg Neutrophils # Seg Neutrophils # Man Lymphocytes # (Manual) Monocytes # (Manual) Eosinophils # (Manual) APTT POC ABG pH ABG pH 7.458 H POC ABG pCO2 POC ABG pO2 ABG pO2 67.5 L ABG HCO3 27.5 H ABG O2 Saturation 94.4 L ABG Base Excess 3.4 H ABG Hemoglobin 7.8 L VBG pH Oxyhemoglobin 92.1 L Sodium Potassium Chloride Carbon Dioxide BUN Creatinine 0.4 L Glucose 129 H POC Glucose 129 H Lactic Acid Calcium 7.9 L Phosphorus Total Bilirubin AST ALT C-Reactive Protein Total Protein Albumin Triglycerides Amylase Lipase Urine WBC (Auto) Vancomycin Trough Crossmatch 01/01/18 01/01/18 01/01/18 10:10 12:38 17:27 WBC RBC Hgb Hct MCV MCH MCHC RDW Plt Count Lymph % (Auto) Eos % (Auto) [place] # Eos # Baso # Seg Neutrophils % Seg Neuts % (Manual) Lymphocytes % (Manual) Monocytes % (Manual) Eosinophils % (Manual) Nucleated RBC % Seg Neutrophils # Seg Neutrophils # Man Lymphocytes # (Manual) Monocytes # (Manual) Eosinophils # (Manual) APTT POC ABG pH ABG pH POC ABG pCO2 POC ABG pO2 ABG pO2 ABG HCO3 ABG O2 Saturation ABG Base Excess ABG Hemoglobin VBG pH Oxyhemoglobin Sodium Potassium Chloride Carbon Dioxide BUN Creatinine Glucose POC Glucose 155 H 179 H 152 H Lactic Acid Calcium Phosphorus Total Bilirubin AST ALT C-Reactive Protein Total Protein Albumin Triglycerides Amylase Lipase Urine WBC (Auto) Vancomycin Trough Crossmatch 01/01/18 01/02/18 01/02/18 21:36 01:42 04:10 WBC 12.1 H RBC 2.29 L Hgb 7.5 L Hct 22.7 L MCV 99 H MCH 33 H MCHC RDW Plt Count Lymph % (Auto) Eos % (Auto) 5.5 H [place] # 0.9 H Eos # 0.7 H Baso # Seg Neutrophils % Seg Neuts % (Manual) Lymphocytes % (Manual) Monocytes % (Manual) Eosinophils % (Manual) Nucleated RBC % Seg Neutrophils # 8.3 H Seg Neutrophils # Man Lymphocytes # (Manual) Monocytes # (Manual) Eosinophils # (Manual) APTT POC ABG pH ABG pH POC ABG pCO2 POC ABG pO2 ABG pO2 ABG HCO3 ABG O2 Saturation ABG Base Excess ABG Hemoglobin VBG pH Oxyhemoglobin Sodium Potassium Chloride Carbon Dioxide BUN Creatinine Glucose POC Glucose 118 H 117 H Lactic Acid Calcium Phosphorus Total Bilirubin AST ALT C-Reactive Protein Total Protein Albumin Triglycerides Amylase Lipase Urine WBC (Auto) Vancomycin Trough Crossmatch 01/02/18 01/02/18 01/02/18 04:10 04:57 13:42 WBC RBC Hgb Hct MCV MCH MCHC RDW Plt Count Lymph % (Auto) Eos % (Auto) [place] # Eos # Baso # Seg Neutrophils % Seg Neuts % (Manual) Lymphocytes % (Manual) Monocytes % (Manual) Eosinophils % (Manual) Nucleated RBC % Seg Neutrophils # Seg Neutrophils # Man Lymphocytes # (Manual) Monocytes # (Manual) Eosinophils # (Manual) APTT POC ABG pH ABG pH POC ABG pCO2 POC ABG pO2 ABG pO2 ABG HCO3 ABG O2 Saturation ABG Base Excess ABG Hemoglobin VBG pH Oxyhemoglobin Sodium Potassium Chloride 97.0 L Carbon Dioxide BUN Creatinine 0.4 L Glucose POC Glucose 107 H 133 H Lactic Acid Calcium 8.1 L Phosphorus Total Bilirubin AST ALT C-Reactive Protein Total Protein 6.0 L Albumin 2.5 L Triglycerides Amylase Lipase Urine WBC (Auto) Vancomycin Trough Crossmatch 01/02/18 01/02/18 01/03/18 17:33 22:11 02:18 WBC RBC Hgb Hct MCV MCH MCHC RDW Plt Count Lymph % (Auto) Eos % (Auto) [place] # Eos # Baso # Seg Neutrophils % Seg Neuts % (Manual) Lymphocytes % (Manual) Monocytes % (Manual) Eosinophils % (Manual) Nucleated RBC % Seg Neutrophils # Seg Neutrophils # Man Lymphocytes # (Manual) Monocytes # (Manual) Eosinophils # (Manual) APTT POC ABG pH ABG pH POC ABG pCO2 POC ABG pO2 ABG pO2 ABG HCO3 ABG O2 Saturation ABG Base Excess ABG Hemoglobin VBG pH Oxyhemoglobin Sodium Potassium Chloride Carbon Dioxide BUN Creatinine Glucose POC Glucose 146 H 171 H 162 H Lactic Acid Calcium Phosphorus Total Bilirubin AST ALT C-Reactive Protein Total Protein Albumin Triglycerides Amylase Lipase Urine WBC (Auto) Vancomycin Trough Crossmatch 01/03/18 01/03/18 01/03/18 04:56 05:21 17:20 WBC RBC Hgb Hct MCV MCH MCHC RDW Plt Count Lymph % (Auto) Eos % (Auto) [place] # Eos # Baso # Seg Neutrophils % Seg Neuts % (Manual) Lymphocytes % (Manual) Monocytes % (Manual) Eosinophils % (Manual) Nucleated RBC % Seg Neutrophils # Seg Neutrophils # Man Lymphocytes # (Manual) Monocytes # (Manual) Eosinophils # (Manual) APTT POC ABG pH ABG pH POC ABG pCO2 POC ABG pO2 ABG pO2 79.5 L ABG HCO3 31.4 H ABG O2 Saturation ABG Base Excess 6.3 H ABG Hemoglobin 10.4 L VBG pH Oxyhemoglobin 94.2 L Sodium Potassium Chloride Carbon Dioxide BUN Creatinine Glucose POC Glucose 163 H 153 H Lactic Acid Calcium Phosphorus Total Bilirubin AST ALT C-Reactive Protein Total Protein Albumin Triglycerides Amylase Lipase Urine WBC (Auto) Vancomycin Trough Crossmatch 01/03/18 01/03/18 01/04/18 17:50 19:52 00:40 WBC RBC Hgb Hct MCV MCH MCHC RDW Plt Count Lymph % (Auto) Eos % (Auto) [place] # Eos # Baso # Seg Neutrophils % Seg Neuts % (Manual) Lymphocytes % (Manual) Monocytes % (Manual) Eosinophils % (Manual) Nucleated RBC % Seg Neutrophils # Seg Neutrophils # Man Lymphocytes # (Manual) Monocytes # (Manual) Eosinophils # (Manual) APTT POC ABG pH ABG pH POC ABG pCO2 POC ABG pO2 ABG pO2 ABG HCO3 ABG O2 Saturation ABG Base Excess ABG Hemoglobin VBG pH Oxyhemoglobin Sodium Potassium Chloride Carbon Dioxide BUN Creatinine Glucose POC Glucose 157 H 147 H 158 H Lactic Acid Calcium Phosphorus Total Bilirubin AST ALT C-Reactive Protein Total Protein Albumin Triglycerides Amylase Lipase Urine WBC (Auto) Vancomycin Trough Crossmatch 01/04/18 01/04/18 01/04/18 04:01 05:13 06:12 WBC 11.5 H RBC 2.95 L Hgb 9.8 L Hct 29.5 L D MCV 100 H MCH 33 H MCHC RDW Plt Count Lymph % (Auto) Eos % (Auto) [place] # Eos # Baso # Seg Neutrophils % Seg Neuts % (Manual) Lymphocytes % (Manual) Monocytes % (Manual) Eosinophils % (Manual) 6.0 H Nucleated RBC % Seg Neutrophils # Seg Neutrophils # Man Lymphocytes # (Manual) Monocytes # (Manual) Eosinophils # (Manual) 0.7 H APTT POC ABG pH ABG pH 7.498 H POC ABG pCO2 POC ABG pO2 ABG pO2 129.5 H ABG HCO3 30.1 H ABG O2 Saturation ABG Base Excess 6.4 H ABG Hemoglobin 9.3 L VBG pH Oxyhemoglobin Sodium Potassium Chloride Carbon Dioxide BUN Creatinine Glucose POC Glucose 163 H Lactic Acid Calcium Phosphorus Total Bilirubin AST ALT C-Reactive Protein Total Protein Albumin Triglycerides Amylase Lipase Urine WBC (Auto) Vancomycin Trough Crossmatch 01/04/18 01/04/18 01/04/18 06:12 10:55 14:29 WBC RBC Hgb Hct MCV MCH MCHC RDW Plt Count Lymph % (Auto) Eos % (Auto) [place] # Eos # Baso # Seg Neutrophils % Seg Neuts % (Manual) Lymphocytes % (Manual) Monocytes % (Manual) Eosinophils % (Manual) Nucleated RBC % Seg Neutrophils # Seg Neutrophils # Man Lymphocytes # (Manual) Monocytes # (Manual) Eosinophils # (Manual) APTT POC ABG pH ABG pH POC ABG pCO2 POC ABG pO2 ABG pO2 ABG HCO3 ABG O2 Saturation ABG Base Excess ABG Hemoglobin VBG pH Oxyhemoglobin Sodium Potassium Chloride Carbon Dioxide BUN Creatinine 0.5 L Glucose 174 H POC Glucose 187 H 144 H Lactic Acid Calcium Phosphorus Total Bilirubin AST 41 H ALT C-Reactive Protein Total Protein Albumin 2.9 L Triglycerides Amylase Lipase Urine WBC (Auto) Vancomycin Trough Crossmatch 01/04/18 01/04/18 01/05/18 17:25 21:56 01:59 WBC RBC Hgb Hct MCV MCH MCHC RDW Plt Count Lymph % (Auto) Eos % (Auto) [place] # Eos # Baso # Seg Neutrophils % Seg Neuts % (Manual) Lymphocytes % (Manual) Monocytes % (Manual) Eosinophils % (Manual) Nucleated RBC % Seg Neutrophils # Seg Neutrophils # Man Lymphocytes # (Manual) Monocytes # (Manual) Eosinophils # (Manual) APTT POC ABG pH ABG pH POC ABG pCO2 POC ABG pO2 ABG pO2 ABG HCO3 ABG O2 Saturation ABG Base Excess ABG Hemoglobin VBG pH Oxyhemoglobin Sodium Potassium Chloride Carbon Dioxide BUN Creatinine Glucose POC Glucose 156 H 171 H 162 H Lactic Acid Calcium Phosphorus Total Bilirubin AST ALT C-Reactive Protein Total Protein Albumin Triglycerides Amylase Lipase Urine WBC (Auto) Vancomycin Trough Crossmatch 01/05/18 01/05/18 01/05/18 03:50 06:00 06:07 WBC RBC Hgb Hct MCV MCH MCHC RDW Plt Count Lymph % (Auto) Eos % (Auto) [place] # Eos # Baso # Seg Neutrophils % Seg Neuts % (Manual) Lymphocytes % (Manual) Monocytes % (Manual) Eosinophils % (Manual) Nucleated RBC % Seg Neutrophils # Seg Neutrophils # Man Lymphocytes # (Manual) Monocytes # (Manual) Eosinophils # (Manual) APTT POC ABG pH ABG pH POC ABG pCO2 POC ABG pO2 ABG pO2 64.6 L ABG HCO3 30.2 H ABG O2 Saturation 91.3 L ABG Base Excess 5.5 H ABG Hemoglobin 10.1 L VBG pH Oxyhemoglobin 89.0 L Sodium Potassium Chloride Carbon Dioxide BUN Creatinine 0.4 L Glucose 144 H POC Glucose 136 H Lactic Acid Calcium Phosphorus Total Bilirubin AST ALT C-Reactive Protein Total Protein Albumin Triglycerides Amylase Lipase Urine WBC (Auto) Vancomycin Trough Crossmatch 01/05/18 01/05/18 01/05/18 10:46 14:03 17:31 WBC RBC Hgb Hct MCV MCH MCHC RDW Plt Count Lymph % (Auto) Eos % (Auto) [place] # Eos # Baso # Seg Neutrophils % Seg Neuts % (Manual) Lymphocytes % (Manual) Monocytes % (Manual) Eosinophils % (Manual) Nucleated RBC % Seg Neutrophils # Seg Neutrophils # Man Lymphocytes # (Manual) Monocytes # (Manual) Eosinophils # (Manual) APTT POC ABG pH ABG pH POC ABG pCO2 POC ABG pO2 ABG pO2 ABG HCO3 ABG O2 Saturation ABG Base Excess ABG Hemoglobin VBG pH Oxyhemoglobin Sodium Potassium Chloride Carbon Dioxide BUN Creatinine Glucose POC Glucose 147 H 141 H 192 H Lactic Acid Calcium Phosphorus Total Bilirubin AST ALT C-Reactive Protein Total Protein Albumin Triglycerides Amylase Lipase Urine WBC (Auto) Vancomycin Trough Crossmatch 01/05/18 01/05/18 01/06/18 22:12 Unknown 01:58 WBC RBC Hgb Hct MCV MCH MCHC RDW Plt Count Lymph % (Auto) Eos % (Auto) [place] # Eos # Baso # Seg Neutrophils % Seg Neuts % (Manual) Lymphocytes % (Manual) Monocytes % (Manual) Eosinophils % (Manual) Nucleated RBC % Seg Neutrophils # Seg Neutrophils # Man Lymphocytes # (Manual) Monocytes # (Manual) Eosinophils # (Manual) APTT POC ABG pH ABG pH 7.463 H POC ABG pCO2 POC ABG pO2 ABG pO2 74.0 L ABG HCO3 29.4 H ABG O2 Saturation ABG Base Excess 5.2 H ABG Hemoglobin 10.0 L VBG pH Oxyhemoglobin 93.4 L Sodium Potassium Chloride Carbon Dioxide BUN Creatinine Glucose POC Glucose 209 H 138 H Lactic Acid Calcium Phosphorus Total Bilirubin AST ALT C-Reactive Protein Total Protein Albumin Triglycerides Amylase Lipase Urine WBC (Auto) Vancomycin Trough Crossmatch 01/06/18 01/06/18 01/06/18 03:14 05:30 05:30 WBC 12.6 H RBC 3.16 L Hgb 10.4 L Hct 31.7 L MCV 100 H MCH 33 H MCHC RDW 15.5 H Plt Count Lymph % (Auto) Eos % (Auto) [place] # Eos # Baso # Seg Neutrophils % Seg Neuts % (Manual) 72.0 H Lymphocytes % (Manual) Monocytes % (Manual) 9.0 H Eosinophils % (Manual) Nucleated RBC % 1.0 H Seg Neutrophils # Seg Neutrophils # Man 9.1 H Lymphocytes # (Manual) Monocytes # (Manual) 1.1 H Eosinophils # (Manual) APTT POC ABG pH ABG pH POC ABG pCO2 POC ABG pO2 ABG pO2 ABG HCO3 28.8 H ABG O2 Saturation ABG Base Excess 4.2 H ABG Hemoglobin 9.3 L VBG pH Oxyhemoglobin 94.7 L Sodium 136 L Potassium Chloride 94.2 L Carbon Dioxide BUN Creatinine 0.4 L Glucose 146 H POC Glucose Lactic Acid Calcium Phosphorus Total Bilirubin AST ALT C-Reactive Protein Total Protein Albumin 3.1 L Triglycerides Amylase Lipase Urine WBC (Auto) Vancomycin Trough Crossmatch 01/06/18 01/06/18 01/06/18 05:42 10:00 14:40 WBC RBC Hgb Hct MCV MCH MCHC RDW Plt Count Lymph % (Auto) Eos % (Auto) [place] # Eos # Baso # Seg Neutrophils % Seg Neuts % (Manual) Lymphocytes % (Manual) Monocytes % (Manual) Eosinophils % (Manual) Nucleated RBC % Seg Neutrophils # Seg Neutrophils # Man Lymphocytes # (Manual) Monocytes # (Manual) Eosinophils # (Manual) APTT POC ABG pH ABG pH POC ABG pCO2 POC ABG pO2 ABG pO2 ABG HCO3 ABG O2 Saturation ABG Base Excess ABG Hemoglobin VBG pH Oxyhemoglobin Sodium Potassium Chloride Carbon Dioxide BUN Creatinine Glucose POC Glucose 158 H 155 H 115 H Lactic Acid Calcium Phosphorus Total Bilirubin AST ALT C-Reactive Protein Total Protein Albumin Triglycerides Amylase Lipase Urine WBC (Auto) Vancomycin Trough Crossmatch 01/06/18 01/06/18 01/07/18 17:45 21:59 05:29 WBC RBC Hgb Hct MCV MCH MCHC RDW Plt Count Lymph % (Auto) Eos % (Auto) [place] # Eos # Baso # Seg Neutrophils % Seg Neuts % (Manual) Lymphocytes % (Manual) Monocytes % (Manual) Eosinophils % (Manual) Nucleated RBC % Seg Neutrophils # Seg Neutrophils # Man Lymphocytes # (Manual) Monocytes # (Manual) Eosinophils # (Manual) APTT POC ABG pH ABG pH POC ABG pCO2 POC ABG pO2 ABG pO2 ABG HCO3 ABG O2 Saturation ABG Base Excess ABG Hemoglobin VBG pH Oxyhemoglobin Sodium Potassium Chloride Carbon Dioxide BUN Creatinine Glucose POC Glucose 156 H 177 H 179 H Lactic Acid Calcium Phosphorus Total Bilirubin AST ALT C-Reactive Protein Total Protein Albumin Triglycerides Amylase Lipase Urine WBC (Auto) Vancomycin Trough Crossmatch 01/07/18 01/07/18 01/07/18 10:00 14:32 18:05 WBC RBC Hgb Hct MCV MCH MCHC RDW Plt Count Lymph % (Auto) Eos % (Auto) [place] # Eos # Baso # Seg Neutrophils % Seg Neuts % (Manual) Lymphocytes % (Manual) Monocytes % (Manual) Eosinophils % (Manual) Nucleated RBC % Seg Neutrophils # Seg Neutrophils # Man Lymphocytes # (Manual) Monocytes # (Manual) Eosinophils # (Manual) APTT POC ABG pH ABG pH POC ABG pCO2 POC ABG pO2 ABG pO2 ABG HCO3 ABG O2 Saturation ABG Base Excess ABG Hemoglobin VBG pH Oxyhemoglobin Sodium Potassium Chloride Carbon Dioxide BUN Creatinine Glucose POC Glucose 131 H 177 H 143 H Lactic Acid Calcium Phosphorus Total Bilirubin AST ALT C-Reactive Protein Total Protein Albumin Triglycerides Amylase Lipase Urine WBC (Auto) Vancomycin Trough Crossmatch 01/07/18 01/08/18 01/08/18 22:11 02:26 05:37 WBC RBC Hgb Hct MCV MCH MCHC RDW Plt Count Lymph % (Auto) Eos % (Auto) [place] # Eos # Baso # Seg Neutrophils % Seg Neuts % (Manual) Lymphocytes % (Manual) Monocytes % (Manual) Eosinophils % (Manual) Nucleated RBC % Seg Neutrophils # Seg Neutrophils # Man Lymphocytes # (Manual) Monocytes # (Manual) Eosinophils # (Manual) APTT POC ABG pH ABG pH POC ABG pCO2 POC ABG pO2 ABG pO2 ABG HCO3 ABG O2 Saturation ABG Base Excess ABG Hemoglobin VBG pH Oxyhemoglobin Sodium Potassium Chloride Carbon Dioxide BUN Creatinine Glucose POC Glucose 133 H 194 H 106 H Lactic Acid Calcium Phosphorus Total Bilirubin AST ALT C-Reactive Protein Total Protein Albumin Triglycerides Amylase Lipase Urine WBC (Auto) Vancomycin Trough Crossmatch 01/08/18 01/08/18 01/08/18 09:41 10:45 10:45 WBC 11.6 H RBC 3.21 L Hgb 10.5 L Hct 32.0 L MCV 100 H MCH 33 H MCHC RDW 15.7 H Plt Count Lymph % (Auto) Eos % (Auto) [place] # Eos # Baso # Seg Neutrophils % Seg Neuts % (Manual) Lymphocytes % (Manual) Monocytes % (Manual) Eosinophils % (Manual) Nucleated RBC % Seg Neutrophils # Seg Neutrophils # Man Lymphocytes # (Manual) Monocytes # (Manual) Eosinophils # (Manual) APTT POC ABG pH ABG pH POC ABG pCO2 POC ABG pO2 ABG pO2 ABG HCO3 ABG O2 Saturation ABG Base Excess ABG Hemoglobin VBG pH Oxyhemoglobin Sodium Potassium Chloride 96.4 L Carbon Dioxide BUN Creatinine 0.4 L Glucose 146 H POC Glucose 142 H Lactic Acid Calcium Phosphorus Total Bilirubin AST ALT C-Reactive Protein Total Protein Albumin Triglycerides Amylase Lipase Urine WBC (Auto) Vancomycin Trough Crossmatch 01/08/18 01/08/18 01/08/18 14:31 17:20 21:46 WBC RBC Hgb Hct MCV MCH MCHC RDW Plt Count Lymph % (Auto) Eos % (Auto) [place] # Eos # Baso # Seg Neutrophils % Seg Neuts % (Manual) Lymphocytes % (Manual) Monocytes % (Manual) Eosinophils % (Manual) Nucleated RBC % Seg Neutrophils # Seg Neutrophils # Man Lymphocytes # (Manual) Monocytes # (Manual) Eosinophils # (Manual) APTT POC ABG pH ABG pH POC ABG pCO2 POC ABG pO2 ABG pO2 ABG HCO3 ABG O2 Saturation ABG Base Excess ABG Hemoglobin VBG pH Oxyhemoglobin Sodium Potassium Chloride Carbon Dioxide BUN Creatinine Glucose POC Glucose 158 H 160 H 166 H Lactic Acid Calcium Phosphorus Total Bilirubin AST ALT C-Reactive Protein Total Protein Albumin Triglycerides Amylase Lipase Urine WBC (Auto) Vancomycin Trough Crossmatch 01/09/18 01/09/18 01/09/18 02:01 04:30 04:30 WBC RBC 3.21 L Hgb 10.9 L Hct 31.7 L MCV 99 H MCH 34 H MCHC RDW 15.8 H Plt Count Lymph % (Auto) Eos % (Auto) [place] # Eos # Baso # Seg Neutrophils % Seg Neuts % (Manual) Lymphocytes % (Manual) Monocytes % (Manual) Eosinophils % (Manual) Nucleated RBC % Seg Neutrophils # Seg Neutrophils # Man Lymphocytes # (Manual) Monocytes # (Manual) Eosinophils # (Manual) APTT POC ABG pH ABG pH POC ABG pCO2 POC ABG pO2 ABG pO2 ABG HCO3 ABG O2 Saturation ABG Base Excess ABG Hemoglobin VBG pH Oxyhemoglobin Sodium 135 L Potassium Chloride 93.8 L Carbon Dioxide BUN Creatinine 0.5 L Glucose 137 H POC Glucose 155 H Lactic Acid Calcium Phosphorus Total Bilirubin AST ALT C-Reactive Protein Total Protein Albumin Triglycerides Amylase Lipase Urine WBC (Auto) Vancomycin Trough Crossmatch 01/09/18 01/09/18 01/09/18 05:42 10:41 14:01 WBC RBC Hgb Hct MCV MCH MCHC RDW Plt Count Lymph % (Auto) Eos % (Auto) [place] # Eos # Baso # Seg Neutrophils % Seg Neuts % (Manual) Lymphocytes % (Manual) Monocytes % (Manual) Eosinophils % (Manual) Nucleated RBC % Seg Neutrophils # Seg Neutrophils # Man Lymphocytes # (Manual) Monocytes # (Manual) Eosinophils # (Manual) APTT POC ABG pH ABG pH POC ABG pCO2 POC ABG pO2 ABG pO2 ABG HCO3 ABG O2 Saturation ABG Base Excess ABG Hemoglobin VBG pH Oxyhemoglobin Sodium Potassium Chloride Carbon Dioxide BUN Creatinine Glucose POC Glucose 142 H 187 H 138 H Lactic Acid Calcium Phosphorus Total Bilirubin AST ALT C-Reactive Protein Total Protein Albumin Triglycerides Amylase Lipase Urine WBC (Auto) Vancomycin Trough Crossmatch 01/09/18 01/09/18 01/10/18 18:09 21:09 02:06 WBC RBC Hgb Hct MCV MCH MCHC RDW Plt Count Lymph % (Auto) Eos % (Auto) [place] # Eos # Baso # Seg Neutrophils % Seg Neuts % (Manual) Lymphocytes % (Manual) Monocytes % (Manual) Eosinophils % (Manual) Nucleated RBC % Seg Neutrophils # Seg Neutrophils # Man Lymphocytes # (Manual) Monocytes # (Manual) Eosinophils # (Manual) APTT POC ABG pH ABG pH POC ABG pCO2 POC ABG pO2 ABG pO2 ABG HCO3 ABG O2 Saturation ABG Base Excess ABG Hemoglobin VBG pH Oxyhemoglobin Sodium Potassium Chloride Carbon Dioxide BUN Creatinine Glucose POC Glucose 143 H 188 H 160 H Lactic Acid Calcium Phosphorus Total Bilirubin AST ALT C-Reactive Protein Total Protein Albumin Triglycerides Amylase Lipase Urine WBC (Auto) Vancomycin Trough Crossmatch 01/10/18 01/10/18 01/10/18 05:58 09:54 13:58 WBC RBC Hgb Hct MCV MCH MCHC RDW Plt Count Lymph % (Auto) Eos % (Auto) [place] # Eos # Baso # Seg Neutrophils % Seg Neuts % (Manual) Lymphocytes % (Manual) Monocytes % (Manual) Eosinophils % (Manual) Nucleated RBC % Seg Neutrophils # Seg Neutrophils # Man Lymphocytes # (Manual) Monocytes # (Manual) Eosinophils # (Manual) APTT POC ABG pH ABG pH POC ABG pCO2 POC ABG pO2 ABG pO2 ABG HCO3 ABG O2 Saturation ABG Base Excess ABG Hemoglobin VBG pH Oxyhemoglobin Sodium Potassium Chloride Carbon Dioxide BUN Creatinine Glucose POC Glucose 134 H 162 H 152 H Lactic Acid Calcium Phosphorus Total Bilirubin AST ALT C-Reactive Protein Total Protein Albumin Triglycerides Amylase Lipase Urine WBC (Auto) Vancomycin Trough Crossmatch 01/10/18 01/10/18 01/11/18 16:56 21:57 02:22 WBC RBC Hgb Hct MCV MCH MCHC RDW Plt Count Lymph % (Auto) Eos % (Auto) [place] # Eos # Baso # Seg Neutrophils % Seg Neuts % (Manual) Lymphocytes % (Manual) Monocytes % (Manual) Eosinophils % (Manual) Nucleated RBC % Seg Neutrophils # Seg Neutrophils # Man Lymphocytes # (Manual) Monocytes # (Manual) Eosinophils # (Manual) APTT POC ABG pH ABG pH POC ABG pCO2 POC ABG pO2 ABG pO2 ABG HCO3 ABG O2 Saturation ABG Base Excess ABG Hemoglobin VBG pH Oxyhemoglobin Sodium Potassium Chloride Carbon Dioxide BUN Creatinine Glucose POC Glucose 161 H 161 H 159 H Lactic Acid Calcium Phosphorus Total Bilirubin AST ALT C-Reactive Protein Total Protein Albumin Triglycerides Amylase Lipase Urine WBC (Auto) Vancomycin Trough Crossmatch 01/11/18 01/11/18 01/11/18 06:19 10:23 11:21 WBC 12.7 H RBC 3.50 L Hgb 11.5 L Hct 34.8 L MCV 99 H MCH 33 H MCHC RDW Plt Count Lymph % (Auto) Eos % (Auto) [place] # Eos # Baso # Seg Neutrophils % Seg Neuts % (Manual) Lymphocytes % (Manual) Monocytes % (Manual) Eosinophils % (Manual) Nucleated RBC % Seg Neutrophils # Seg Neutrophils # Man Lymphocytes # (Manual) Monocytes # (Manual) Eosinophils # (Manual) APTT POC ABG pH ABG pH POC ABG pCO2 POC ABG pO2 ABG pO2 ABG HCO3 ABG O2 Saturation ABG Base Excess ABG Hemoglobin VBG pH Oxyhemoglobin Sodium Potassium Chloride Carbon Dioxide BUN Creatinine Glucose POC Glucose 174 H 172 H Lactic Acid Calcium Phosphorus Total Bilirubin AST ALT C-Reactive Protein Total Protein Albumin Triglycerides Amylase Lipase Urine WBC (Auto) Vancomycin Trough Crossmatch 01/11/18 01/11/18 01/11/18 11:21 14:00 17:19 WBC RBC Hgb Hct MCV MCH MCHC RDW Plt Count Lymph % (Auto) Eos % (Auto) [place] # Eos # Baso # Seg Neutrophils % Seg Neuts % (Manual) Lymphocytes % (Manual) Monocytes % (Manual) Eosinophils % (Manual) Nucleated RBC % Seg Neutrophils # Seg Neutrophils # Man Lymphocytes # (Manual) Monocytes # (Manual) Eosinophils # (Manual) APTT POC ABG pH ABG pH POC ABG pCO2 POC ABG pO2 ABG pO2 ABG HCO3 ABG O2 Saturation ABG Base Excess ABG Hemoglobin VBG pH Oxyhemoglobin Sodium 133 L Potassium Chloride 92.9 L Carbon Dioxide BUN Creatinine 0.4 L Glucose 156 H POC Glucose 152 H 177 H Lactic Acid Calcium Phosphorus Total Bilirubin AST ALT C-Reactive Protein Total Protein Albumin Triglycerides Amylase Lipase Urine WBC (Auto) Vancomycin Trough Crossmatch 01/11/18 01/12/18 01/12/18 22:20 02:09 05:50 WBC RBC Hgb Hct MCV MCH MCHC RDW Plt Count Lymph % (Auto) Eos % (Auto) [place] # Eos # Baso # Seg Neutrophils % Seg Neuts % (Manual) Lymphocytes % (Manual) Monocytes % (Manual) Eosinophils % (Manual) Nucleated RBC % Seg Neutrophils # Seg Neutrophils # Man Lymphocytes # (Manual) Monocytes # (Manual) Eosinophils # (Manual) APTT POC ABG pH ABG pH POC ABG pCO2 POC ABG pO2 ABG pO2 ABG HCO3 ABG O2 Saturation ABG Base Excess ABG Hemoglobin VBG pH Oxyhemoglobin Sodium Potassium Chloride Carbon Dioxide BUN Creatinine Glucose POC Glucose 208 H 179 H 165 H Lactic Acid Calcium Phosphorus Total Bilirubin AST ALT C-Reactive Protein Total Protein Albumin Triglycerides Amylase Lipase Urine WBC (Auto) Vancomycin Trough Crossmatch 01/12/18 01/12/18 01/12/18 09:31 13:23 17:35 WBC RBC Hgb Hct MCV MCH MCHC RDW Plt Count Lymph % (Auto) Eos % (Auto) [place] # Eos # Baso # Seg Neutrophils % Seg Neuts % (Manual) Lymphocytes % (Manual) Monocytes % (Manual) Eosinophils % (Manual) Nucleated RBC % Seg Neutrophils # Seg Neutrophils # Man Lymphocytes # (Manual) Monocytes # (Manual) Eosinophils # (Manual) APTT POC ABG pH ABG pH POC ABG pCO2 POC ABG pO2 ABG pO2 ABG HCO3 ABG O2 Saturation ABG Base Excess ABG Hemoglobin VBG pH Oxyhemoglobin Sodium Potassium Chloride Carbon Dioxide BUN Creatinine Glucose POC Glucose 142 H 138 H 172 H Lactic Acid Calcium Phosphorus Total Bilirubin AST ALT C-Reactive Protein Total Protein Albumin Triglycerides Amylase Lipase Urine WBC (Auto) Vancomycin Trough Crossmatch 01/12/18 01/13/18 01/13/18 22:03 01:56 05:00 WBC RBC 3.50 L Hgb Hct 34.1 L MCV 98 H MCH 34 H MCHC 35 H RDW Plt Count Lymph % (Auto) Eos % (Auto) [place] # Eos # Baso # Seg Neutrophils % Seg Neuts % (Manual) Lymphocytes % (Manual) Monocytes % (Manual) Eosinophils % (Manual) Nucleated RBC % Seg Neutrophils # Seg Neutrophils # Man Lymphocytes # (Manual) Monocytes # (Manual) Eosinophils # (Manual) APTT POC ABG pH ABG pH POC ABG pCO2 POC ABG pO2 ABG pO2 ABG HCO3 ABG O2 Saturation ABG Base Excess ABG Hemoglobin VBG pH Oxyhemoglobin Sodium Potassium Chloride Carbon Dioxide BUN Creatinine Glucose POC Glucose 166 H 129 H Lactic Acid Calcium Phosphorus Total Bilirubin AST ALT C-Reactive Protein Total Protein Albumin Triglycerides Amylase Lipase Urine WBC (Auto) Vancomycin Trough Crossmatch 01/13/18 01/13/18 05:00 05:06 WBC RBC Hgb Hct MCV MCH MCHC RDW Plt Count Lymph % (Auto) Eos % (Auto) [place] # Eos # Baso # Seg Neutrophils % Seg Neuts % (Manual) Lymphocytes % (Manual) Monocytes % (Manual) Eosinophils % (Manual) Nucleated RBC % Seg Neutrophils # Seg Neutrophils # Man Lymphocytes # (Manual) Monocytes # (Manual) Eosinophils # (Manual) APTT POC ABG pH ABG pH POC ABG pCO2 POC ABG pO2 ABG pO2 ABG HCO3 ABG O2 Saturation ABG Base Excess ABG Hemoglobin VBG pH Oxyhemoglobin Sodium 136 L Potassium Chloride 95.5 L Carbon Dioxide BUN Creatinine 0.4 L Glucose 165 H POC Glucose 188 H Lactic Acid Calcium Phosphorus Total Bilirubin AST ALT C-Reactive Protein Total Protein Albumin Triglycerides Amylase Lipase Urine WBC (Auto) Vancomycin Trough Crossmatch Chest x-ray: report reviewed, image reviewed (ARDS improving)
[2018-01-13] MEDS: SUBLIMAZE IV PRN ×2 (18:06→20:51)
[2018-01-13] MEDS: TYLENOL PO PRN (20:50)
--- NOTE | 2018-01-13 21:35 | XRay Report ---
FINAL REPORT PROCEDURE: XR ABDOMEN 1V AP TECHNIQUE: AP supine portable radiograph of the abdomen was obtained at 01/14/2018 01:05 (T) . HISTORY: dobbhoff placement COMPARISON: No prior studies are available for comparison. FINDINGS: There is a Dobhoff feeding tube coiled in the left upper quadrant. This appears to be in the patient's stomach. The metallic end is directed superiorly and to the left and should be repositioned to the right. Bowel gas pattern is unremarkable. No other abnormalities are seen. IMPRESSION: Doppler feeding tube coiled in the stomach as described above. Please see above comments.
--- NOTE | 2018-01-14 03:34 | XRay Report ---
FINAL REPORT EXAM: XR ABDOMEN 1V AP HISTORY: dobhoff placement TECHNIQUE: A supine view of the abdomen was obtained. Comparison is made to the study of 01/13/2018. FINDINGS: The tip of the Dobhoff tube has advanced to the antrum of the stomach. The bowel gas pattern is normal. The bones soft tissues are unchanged. IMPRESSION: Tip of the Dobhoff tube has advanced to the antrum of the stomach.
[2018-01-14] MEDS: LIBRIUM PO SCH ×4 (03:57→23:41)
[2018-01-14] MEDS: LOPRESSOR PO SCH ×3 (03:58→23:42)
[2018-01-14] MEDS: LOVENOX SUB-Q SCH ×2 (04:00→23:31)
[2018-01-14] MEDS: SUBLIMAZE IV PRN ×4 (04:18→16:34)
[2018-01-14] MEDS: HumaLOG SUB-Q SCH ×7 (04:19→22:54)
[2018-01-14] MEDS: SODIUM CHLORIDE FLUSH SYRINGE 10 ML IV SCH ×3 (04:20→23:31)
[2018-01-14] MEDS: SODIUM CHLORIDE FLUSH SYRINGE 10 ML IV PRN (04:20)
[2018-01-14 06:23] LABS: Hematocrit 35.1 % (35.5-45.6); Hemoglobin 11.7 gm/dl (11.8-15.2); Mean Corpuscular HGB Conc 33 % (32-34); Mean Corpuscular Hemoglobin 33 pg (28-32); Mean Corpuscular Volume 99 fl (84-94); Platelet Count 374 K/mm3 (140-440); Red Blood Count 3.55 M/mm3 (3.65-5.03); Red Cell Distribution Width 15.4 % (13.2-15.2)
[2018-01-14 06:44] LABS: BUN/Creatinine Ratio 28; Blood Urea Nitrogen 14 mg/dL (9-20); Calcium 9.6 mg/dL (8.4-10.2); Hemolysis Index 4
[2018-01-14] MEDS: PEPCID PO SCH ×3 (06:48→23:41)
[2018-01-14] MEDS: DUONEB *Not for PRN Use IH SCH ×3 (07:57→19:48)
[2018-01-14] MEDS: VITAMIN B-1 PO SCH (10:16)
[2018-01-14] MEDS: LANTUS SUB-Q SCH (10:16)
[2018-01-14] MEDS: POTASSIUM CHLORIDE PO SCH (10:16)
--- NOTE | 2018-01-14 11:20 | Progress Note ---
Assessment and Plan Acute hypoxic respiratory failure - suspected due to ARDS/aspiration pneumonia: - vent dependent, unable to wean - pulmonary following - Considering tracheostomy and PEG. has not decided yet Suspected ARDS: - Pulmonology is following, on vent - CXR showing improvement Sepsis, Etiology most likely complicated H influenza bacteremia +/- pneumonia: - treated with IV antibiotics, - ID signed off, appreciate recommendation Alcohol abuse: cont thiamine, folate, taper librium Hypotension resolved with ivfs and iv steroids Thrombocytopenia, - severe most likely due to sepsis: now stable Hypernatremia - improved with free water with TF and hypotonic iv fluid hypokalemia, replaced DM type 2- cont long acting and SSI, lentus to 26 unit daily Moderate to Severe protein calorie malnutrition; nutrition supplements, tube feeding. Anemia; s/p 1 Unit PRBC this admission. DVT prophylaxis: scd and lovenox Brief History: Patient is a 47 yo man with a history of tobacco dependency, alcohol abuse, dm type 2, hypertension and asthma who presented to [facility] ED with SOB and found to be severely hypoxic, failed bipap and was intubated. There is report of n/v during and after intubation. Hospitalist Physical GEN: Ill-appearing HEENT: NCAT, pupils react, ET tube, NG tube in place NECK: supple, CVS/HEART:regular, NORMAL S1S2, pulses present bilaterally CHEST/LUNGS: Symmetrical chest expansion, good air entry bilaterally GI/Abdomen: soft, distended, good bowel sounds, no guarding or rebound /Bladder: condom cath in place EXT/Skin: Dependent edema MSK: no joint effusion or tenderness Neuro: eyes wide open, does not follow commend Psych: unable to assess Subjective Date of service: 01/14/18 Principal diagnosis: ARDS,Respiratory failure,pneumonia Interval history: Pt seen and examined Remained intubated Tolerating tube feeding at bedside, updated Objective - Constitutional Vitals: Vital Signs - 12hr 01/13/18 01/14/18 01/14/18 23:31 00:00 00:31 Temperature 99.1 F Pulse Rate 95 H 96 H 95 H Pulse Rate [ Anterior Bilateral Throughout] Pulse Rate [ 96 H From Monitor] Respiratory 26 H 26 H 24 Rate Respiratory Rate [Anterior Bilateral Throughout] Blood Pressure 107/74 109/78 109/78 O2 Sat by Pulse 100 100 100 Oximetry 01/14/18 01/14/18 01/14/18 01:00 01:31 02:00 Temperature Pulse Rate 97 H 94 H 93 H Pulse Rate [ Anterior Bilateral Throughout] Pulse Rate [ From Monitor] Respiratory 27 H 26 H 23 Rate Respiratory Rate [Anterior Bilateral Throughout] Blood Pressure 110/73 110/73 113/79 O2 Sat by Pulse 99 Oximetry 01/14/18 01/14/18 01/14/18 02:31 03:00 03:31 Temperature Pulse Rate 98 H 100 H 97 H Pulse Rate [ Anterior Bilateral Throughout] Pulse Rate [ From Monitor] Respiratory 26 H 24 12 Rate Respiratory Rate [Anterior Bilateral Throughout] Blood Pressure 113/79 127/80 127/80 O2 Sat by Pulse 97 94 Oximetry 01/14/18 01/14/18 01/14/18 03:58 04:00 04:31 Temperature 98.9 F Pulse Rate 96 H 100 H 82 Pulse Rate [ Anterior Bilateral Throughout] Pulse Rate [ 96 H From Monitor] Respiratory 26 H 26 H Rate Respiratory Rate [Anterior Bilateral Throughout] Blood Pressure 127/80 127/85 127/85 O2 Sat by Pulse 100 99 Oximetry 01/14/18 01/14/18 01/14/18 05:00 05:31 06:00 Temperature Pulse Rate 79 83 84 Pulse Rate [ Anterior Bilateral Throughout] Pulse Rate [ From Monitor] Respiratory 19 19 21 Rate Respiratory Rate [Anterior Bilateral Throughout] Blood Pressure 113/72 113/72 116/74 O2 Sat by Pulse 99 99 Oximetry 01/14/18 01/14/18 01/14/18 07:40 07:42 07:58 Temperature 98.1 F Pulse Rate 92 H Pulse Rate [ 88 Anterior Bilateral Throughout] Pulse Rate [ From Monitor] Respiratory Rate Respiratory 27 H Rate [Anterior Bilateral Throughout] Blood Pressure 116/74 O2 Sat by Pulse 99 Oximetry 01/14/18 01/14/18 08:12 10:16 Temperature Pulse Rate 91 H Pulse Rate [ 86 Anterior Bilateral Throughout] Pulse Rate [ From Monitor] Respiratory Rate Respiratory 24 Rate [Anterior Bilateral Throughout] Blood Pressure 114/78 O2 Sat by Pulse Oximetry - Labs CBC & Chem 7: 01/14/18 04:30 01/14/18 04:30 Labs: Abnormal lab results 01/13/18 01/13/18 01/13/18 Range/Units 09:44 13:53 18:06 WBC (4.5-11.0) K/mm3 RBC (3.65-5.03) M/mm3 Hgb (11.8-15.2) gm/dl Hct (35.5-45.6) % MCV (84-94) fl MCH (28-32) pg RDW (13.2-15.2) % Chloride (98-107) mmol/L Creatinine (0.8-1.5) mg/dL POC Glucose 132 H 137 H 142 H (70-105) 01/13/18 01/14/18 01/14/18 Range/Units 21:26 04:30 04:30 WBC 16.5 H (4.5-11.0) K/mm3 RBC 3.55 L (3.65-5.03) M/mm3 Hgb 11.7 L (11.8-15.2) gm/dl Hct 35.1 L (35.5-45.6) % MCV 99 H (84-94) fl MCH 33 H (28-32) pg RDW 15.4 H (13.2-15.2) % Chloride 93.8 L (98-107) mmol/L Creatinine 0.5 L (0.8-1.5) mg/dL POC Glucose 129 H (70-105) 01/14/18 01/14/18 Range/Units 05:31 10:08 WBC (4.5-11.0) K/mm3 RBC (3.65-5.03) M/mm3 Hgb (11.8-15.2) gm/dl Hct (35.5-45.6) % MCV (84-94) fl MCH (28-32) pg RDW (13.2-15.2) % Chloride (98-107) mmol/L Creatinine (0.8-1.5) mg/dL POC Glucose 119 H 119 H (70-105)
--- NOTE | 2018-01-14 12:13 | Progress Note ---
Assessment and Plan Imp: 1. Haemophilus influenza pneumonia and bacteremia 2. Severe sepsis 3. ARDS 4. Acute respiratory failure, hypoxia 5. Hypernatremia Rec: 1. DVT and GI PPx, TFs 2. Finished ABX 3. Patient/ adamantly refuse trach/peg, and fully understand potential complications of doing so including permanent damage to vocal cords and trachea ; will see how he does on PSV 10/5 today (tolerating thus far), and can consider extubating either this afternoon or more likely in AM 4. Complex patient/decision-making Plan of care reviewed w/ patient/, they understand/agree Subjective Date of service: 01/14/18 Principal diagnosis: ARDS,Respiratory failure,pneumonia Interval history: No events. On PSV 10/5 and tolerating. Awake without complaints. Active Medications Acetaminophen (Tylenol) 650 mg PO Q6H PRN PRN Reason: Pain, Mild (1-3),temp 100.5or> Last Admin: 01/13/18 20:50 Dose: 650 mg Acetaminophen (Tylenol) 650 mg MS Q4H PRN PRN Reason: Pain, Mild (1-3) Albuterol (Proventil) 2.5 mg IH Q4HRT PRN PRN Reason: Shortness Of Breath Last Admin: 12/13/17 03:01 Dose: 2.5 mg Albuterol/Ipratropium (Duoneb *Not For Prn Use*) 1 ampul IH TIDRT [facility] Last Admin: 01/14/18 07:57 Dose: 1 ampul Lipase/Protease/Amylase (Pancrealex Dr 10,500 Unit) 1 each FEEDTUBE PRN PRN PRN Reason: For Clogged Feeding Tube Chlordiazepoxide HCl (Librium) 50 mg PO Q8H [facility] Dextrose (D50w (25gm) Syringe) 50 ml IV PRN PRN PRN Reason: Hypoglycemia Enoxaparin Sodium (Lovenox) 40 mg SUB-Q QDAY@2200 [facility] Last Admin: 01/14/18 04:00 Dose: 40 mg Famotidine (Pepcid) 20 mg PO BID [facility] Last Admin: 01/14/18 10:17 Dose: 20 mg Fentanyl (Sublimaze) 50 mcg IV Q2H PRN PRN Reason: agitation Last Admin: 01/14/18 11:33 Dose: 50 mcg Folic Acid (Folvite) 1 mg FEEDTUBE QDAY [facility] Hydralazine HCl (Apresoline) 10 mg IV Q4HR PRN PRN Reason: SBP>170 Last Admin: 12/27/17 10:10 Dose: 10 mg Hydrophilic Ointment (Vaseline Lip Therapy) 1 applic TP DIRECT PRN PRN Reason: DRY LIPS Last Admin: 12/31/17 02:08 Dose: 1 applic Dexmedetomidine HCl 400 mcg/ (Sodium Chloride) 104 mls @ 5.25 mls/hr IV TITRATE [facility]; Protocol Last Admin: 01/03/18 15:33 Dose: 0.5 mcg/kg/hr, 13.13 mls/hr Insulin Glargine (Lantus) 26 units SUB-Q DAILY [facility] Last Admin: 01/14/18 10:16 Dose: 26 units Insulin Human Lispro (Humalog) 0 unit SUB-Q Q4H [facility]; Protocol Last Admin: 01/14/18 10:00 Dose: Not Given Labetalol HCl (Normodyne) 20 mg IV Q6H PRN PRN Reason: Blood Pressure Metoprolol Tartrate (Lopressor) 50 mg PO BID [facility] Last Admin: 01/14/18 10:16 Dose: 50 mg Multi-Ingred Cream/Lotion/Oil/Oint (Artificial Tears Ophth Oint) 1 applic OU Q4HR PRN PRN Reason: Dry Eye(s) Ondansetron HCl (Zofran) 4 mg IV Q8H PRN PRN Reason: Nausea And Vomiting Last Admin: 01/01/18 04:20 Dose: 4 mg Potassium Chloride (Potassium Chloride) 20 meq PO QDAY [facility] Last Admin: 01/14/18 10:16 Dose: 20 meq Senna/Docusate Sodium (Senokot S) 2 tab PO BID PRN PRN Reason: Laxative Effect Simple Syrup (Simple Syrup) 15 ml FEEDTUBE PRN PRN PRN Reason: Hypoglycemia Last Admin: 12/31/17 02:07 Dose: 15 ml Simple Syrup (Simple Syrup) 30 ml FEEDTUBE PRN PRN PRN Reason: Hypoglycemia Sodium Bicarbonate (Sodium Bicarbonate) 325 mg FEEDTUBE PRN PRN PRN Reason: For Clogged Feeding Tube Sodium Chloride (Sodium Chloride Flush Syringe 10 Ml) 10 ml IV BID [facility] Last Admin: 01/14/18 10:26 Dose: 10 ml Sodium Chloride (Sodium Chloride Flush Syringe 10 Ml) 10 ml IV PRN PRN PRN Reason: LINE FLUSH Last Admin: 01/14/18 04:20 Dose: 10 ml Thiamine HCl (Vitamin B-1) 100 mg PO QDAY [facility] Last Admin: 01/14/18 10:16 Dose: 100 mg Active Medications Acetaminophen (Tylenol) 650 mg PO Q6H PRN PRN Reason: Pain, Mild (1-3),temp 100.5or> Last Admin: 12/19/17 03:15 Dose: 650 mg Albuterol (Proventil) 2.5 mg IH Q4HRT PRN PRN Reason: Shortness Of Breath Last Admin: 12/13/17 03:01 Dose: 2.5 mg Albuterol/Ipratropium (Duoneb *Not For Prn Use*) 1 ampul IH Q6HRT [facility] Last Admin: 12/19/17 08:30 Dose: 1 ampul Lipase/Protease/Amylase (Pancrememoe Dr 10,500 Unit) 1 each FEEDTUBE PRN PRN PRN Reason: For Clogged Feeding Tube Dextrose (D50w (25gm) Syringe) 50 ml IV PRN PRN PRN Reason: Hypoglycemia Famotidine (Pepcid) 20 mg PO BID [facility] Last Admin: 12/19/17 09:13 Dose: 20 mg Fentanyl (Sublimaze) 50 mcg IV Q2H PRN PRN Reason: PAIN/AGITATION Last Admin: 12/18/17 15:02 Dose: 50 mcg Furosemide (Lasix) 20 mg IV ONCE ONE Stop: 12/19/17 14:00 Hydromorphone HCl (Dilaudid) 2 mg PO Q6HR [facility] Last Admin: 12/19/17 12:25 Dose: 2 mg Hydrophilic Ointment (Vaseline Lip Therapy) 1 applic TP Q2HR PRN PRN Reason: Dry Lips Hydrophilic Ointment (Vaseline Lip Therapy) 1 applic TP DIRECT PRN PRN Reason: DRY LIPS Levofloxacin/Dextrose (Levaquin 750mg/150ml) 750 mg in 150 mls @ 100 mls/hr IV Q24HR [facility]; Protocol Last Admin: 12/19/17 09:02 Dose: 100 mls/hr Fentanyl Citrate (Fentanyl Drip Premix) 2,000 mcg in 100 mls @ 5.058 mls/hr IV TITR [facility]; Protocol Last Admin: 12/19/17 08:51 Dose: 4 mcg/kg/hr, 20.23 mls/hr Midazolam HCl 100 mg/ Sodium (Chloride) 100 mls @ 2 mls/hr IV TITR [facility]; Protocol Last Titration: 12/19/17 10:03 Dose: 3 mg/hr, 3 mls/hr Clindamycin HCl (Cleocin 600 Mg/50 Ml) 600 mg in 50 mls @ 100 mls/hr IV Q8HR [facility] Stop: 12/20/17 13:59 Last Admin: 12/19/17 06:00 Dose: 100 mls/hr Propofol (Diprivan 10 Mg/Ml) 1,000 mg in 100 mls @ 3.264 mls/hr IV TITR [facility]; Protocol Last Titration: 12/19/17 13:51 Dose: 40 mcg/kg/min, 26.112 mls/hr Vancomycin HCl 1,500 mg/ (Sodium Chloride) 515 mls @ 333.333 mls/hr IV Q12H [facility] Last Admin: 12/19/17 04:43 Dose: 333.333 mls/hr Insulin Glargine (Lantus) 20 units SUB-Q DAILY [facility] Insulin Human Lispro (Humalog) 0 unit SUB-Q Q4H [facility]; Protocol Last Admin: 12/19/17 11:44 Dose: 10 unit Methylprednisolone Sodium Succinate (Solu-Medrol) 80 mg IV Q6H [facility] Last Admin: 12/19/17 08:47 Dose: 80 mg Morphine Sulfate (Morphine) 2 mg IV Q4H PRN PRN Reason: Pain, Moderate (4-6) Last Admin: 12/18/17 02:30 Dose: 2 mg Multi-Ingred Cream/Lotion/Oil/Oint (Artificial Tears Ophth Oint) 1 applic OU Q4HR PRN PRN Reason: Dry Eye(s) Ondansetron HCl (Zofran) 4 mg IV Q8H PRN PRN Reason: Nausea And Vomiting Senna/Docusate Sodium (Senokot S) 1 tab PO BID [facility] Last Admin: 12/19/17 09:09 Dose: 1 tab Simple Syrup (Simple Syrup) 15 ml FEEDTUBE PRN PRN PRN Reason: Hypoglycemia Simple Syrup (Simple Syrup) 30 ml FEEDTUBE PRN PRN PRN Reason: Hypoglycemia Sodium Bicarbonate (Sodium Bicarbonate) 325 mg FEEDTUBE PRN PRN PRN Reason: For Clogged Feeding Tube Sodium Chloride (Sodium Chloride Flush Syringe 10 Ml) 10 ml IV BID [facility] Last Admin: 12/19/17 11:49 Dose: 10 ml Sodium Chloride (Sodium Chloride Flush Syringe 10 Ml) 10 ml IV PRN PRN PRN Reason: LINE FLUSH Thiamine HCl (Vitamin B-1) 100 mg PO QDAY [facility] Last Admin: 12/19/17 09:09 Dose: 100 mg Vancomycin HCl (Vancomycin Pharmacy To Dose) 1 each IV PKCONSULT [facility]; Protocol Objective Vital Signs - 12hr 01/14/18 01/14/18 01/14/18 00:31 01:00 01:31 Temperature Pulse Rate 95 H 97 H 94 H Pulse Rate [ Anterior Bilateral Throughout] Pulse Rate [ From Monitor] Respiratory 24 27 H 26 H Rate Respiratory Rate [Anterior Bilateral Throughout] Blood Pressure 109/78 110/73 110/73 O2 Sat by Pulse 100 99 Oximetry 01/14/18 01/14/18 01/14/18 02:00 02:31 03:00 Temperature Pulse Rate 93 H 98 H 100 H Pulse Rate [ Anterior Bilateral Throughout] Pulse Rate [ From Monitor] Respiratory 23 26 H 24 Rate Respiratory Rate [Anterior Bilateral Throughout] Blood Pressure 113/79 113/79 127/80 O2 Sat by Pulse 97 Oximetry 01/14/18 01/14/18 01/14/18 03:31 03:58 04:00 Temperature 98.9 F Pulse Rate 97 H 96 H 100 H Pulse Rate [ Anterior Bilateral Throughout] Pulse Rate [ 96 H From Monitor] Respiratory 12 26 H Rate Respiratory Rate [Anterior Bilateral Throughout] Blood Pressure 127/80 127/80 127/85 O2 Sat by Pulse 94 100 Oximetry 01/14/18 01/14/18 01/14/18 04:31 05:00 05:31 Temperature Pulse Rate 82 79 83 Pulse Rate [ Anterior Bilateral Throughout] Pulse Rate [ From Monitor] Respiratory 26 H 19 19 Rate Respiratory Rate [Anterior Bilateral Throughout] Blood Pressure 127/85 113/72 113/72 O2 Sat by Pulse 99 99 99 Oximetry 01/14/18 01/14/18 01/14/18 06:00 07:40 07:42 Temperature 98.1 F Pulse Rate 84 92 H Pulse Rate [ Anterior Bilateral Throughout] Pulse Rate [ From Monitor] Respiratory 21 Rate Respiratory Rate [Anterior Bilateral Throughout] Blood Pressure 116/74 116/74 O2 Sat by Pulse 99 Oximetry 01/14/18 01/14/18 01/14/18 07:58 08:12 10:16 Temperature Pulse Rate 91 H Pulse Rate [ 88 86 Anterior Bilateral Throughout] Pulse Rate [ From Monitor] Respiratory Rate Respiratory 27 H 24 Rate [Anterior Bilateral Throughout] Blood Pressure 114/78 O2 Sat by Pulse Oximetry Constitutional: no acute distress, alert Eyes: non-icteric ENT: oropharynx moist Neck: supple Effort: normal Ascultation: Bilateral: other (coarse BS bilaterally) Cardiovascular: regular rate and rhythm (no mrg) Gastrointestinal: normoactive bowel sounds, soft, non-tender, non-distended Integumentary: normal Extremities: no cyanosis, no edema, pink and warm, no ischemia or petechiae Neurologic: normal mental status, non-focal exam, pupils equal and round, CN II- XII normal Psychiatric: mood appropriate, affect normal CBC and BMP: 01/14/18 04:30 01/14/18 04:30 ABG, PT/INR, D-dimer: ABG POC ABG pH 7.503 (7.35-7.45) H 12/25/17 03:38 ABG pH 7.441 pH Units (7.350-7.450) 01/06/18 03:14 POC ABG pCO2 35.8 (35-45) 12/25/17 03:38 ABG pCO2 43.2 mm Hg 01/06/18 03:14 POC ABG pO2 66 (80-105) L 12/25/17 03:38 ABG pO2 84.9 mm Hg (80.0-90.0) 01/06/18 03:14 POC ABG HCO3 28.1 12/25/17 03:38 POC ABG Total CO2 29 12/25/17 03:38 POC ABG O2 Sat 95 12/25/17 03:38 ABG O2 Saturation 97.0 % (95.0-99.0) 01/06/18 03:14 PT/INR, D-dimer PT 14.9 Sec. (12.2-14.9) 12/15/17 04:05 INR 1.11 (0.87-1.13) 12/15/17 04:05 Abnormal lab findings: Abnormal Labs 12/12/17 12/12/17 12/12/17 18:57 19:02 19:02 WBC RBC Hgb Hct MCV 96 H MCH 34 H MCHC 35 H RDW Plt Count 46 L Lymph % (Auto) Eos % (Auto) Luce # Eos # Baso # Seg Neutrophils % Seg Neuts % (Manual) 77.0 H Lymphocytes % (Manual) 13.0 L Monocytes % (Manual) Eosinophils % (Manual) Nucleated RBC % Seg Neutrophils # Seg Neutrophils # Man Lymphocytes # (Manual) 0.9 L Monocytes # (Manual) Eosinophils # (Manual) APTT POC ABG pH ABG pH POC ABG pCO2 POC ABG pO2 ABG pO2 ABG HCO3 ABG O2 Saturation ABG Base Excess ABG Hemoglobin VBG pH Oxyhemoglobin Sodium Potassium Chloride Carbon Dioxide BUN Creatinine Glucose POC Glucose 321 H Lactic Acid 4.00 H* Calcium Phosphorus Total Bilirubin AST ALT C-Reactive Protein Total Protein Albumin Triglycerides Amylase Lipase Urine WBC (Auto) Vancomycin Trough Crossmatch 12/12/17 12/12/17 12/12/17 19:02 19:18 20:55 WBC RBC Hgb Hct MCV MCH MCHC RDW Plt Count Lymph % (Auto) Eos % (Auto) Luce # Eos # Baso # Seg Neutrophils % Seg Neuts % (Manual) Lymphocytes % (Manual) Monocytes % (Manual) Eosinophils % (Manual) Nucleated RBC % Seg Neutrophils # Seg Neutrophils # Man Lymphocytes # (Manual) Monocytes # (Manual) Eosinophils # (Manual) APTT POC ABG pH ABG pH POC ABG pCO2 POC ABG pO2 ABG pO2 ABG HCO3 ABG O2 Saturation ABG Base Excess ABG Hemoglobin VBG pH 7.472 H Oxyhemoglobin Sodium 124 L Potassium Chloride 80.0 L Carbon Dioxide 20 L BUN Creatinine Glucose 382 H POC Glucose 283 H Lactic Acid Calcium 8.1 L Phosphorus Total Bilirubin 4.60 H AST 93 H ALT 112 H C-Reactive Protein Total Protein Albumin 2.5 L Triglycerides Amylase Lipase Urine WBC (Auto) Vancomycin Trough Crossmatch 12/12/17 12/13/17 12/13/17 21:41 00:45 01:29 WBC RBC Hgb Hct MCV MCH MCHC RDW Plt Count Lymph % (Auto) Eos % (Auto) Luce # Eos # Baso # Seg Neutrophils % Seg Neuts % (Manual) Lymphocytes % (Manual) Monocytes % (Manual) Eosinophils % (Manual) Nucleated RBC % Seg Neutrophils # Seg Neutrophils # Man Lymphocytes # (Manual) Monocytes # (Manual) Eosinophils # (Manual) APTT POC ABG pH ABG pH POC ABG pCO2 POC ABG pO2 ABG pO2 ABG HCO3 ABG O2 Saturation ABG Base Excess ABG Hemoglobin VBG pH Oxyhemoglobin Sodium Potassium Chloride Carbon Dioxide BUN Creatinine Glucose POC Glucose Lactic Acid 4.20 H* 2.70 H* 3.30 H* Calcium Phosphorus Total Bilirubin AST ALT C-Reactive Protein Total Protein Albumin Triglycerides Amylase Lipase Urine WBC (Auto) Vancomycin Trough Crossmatch 12/13/17 12/13/17 12/13/17 02:19 03:44 05:58 WBC RBC Hgb Hct MCV 97 H MCH 34 H MCHC 35 H RDW Plt Count 41 L Lymph % (Auto) Eos % (Auto) Luce # Eos # Baso # Seg Neutrophils % Seg Neuts % (Manual) Lymphocytes % (Manual) 8.0 L Monocytes % (Manual) 8.0 H Eosinophils % (Manual) Nucleated RBC % Seg Neutrophils # Seg Neutrophils # Man Lymphocytes # (Manual) 0.6 L Monocytes # (Manual) Eosinophils # (Manual) APTT POC ABG pH 7.334 L ABG pH POC ABG pCO2 POC ABG pO2 43 L ABG pO2 ABG HCO3 ABG O2 Saturation ABG Base Excess ABG Hemoglobin VBG pH Oxyhemoglobin Sodium Potassium Chloride Carbon Dioxide BUN Creatinine Glucose POC Glucose Lactic Acid 2.60 H* Calcium Phosphorus Total Bilirubin AST ALT C-Reactive Protein Total Protein Albumin Triglycerides Amylase Lipase Urine WBC (Auto) Vancomycin Trough Crossmatch 12/13/17 12/13/17 12/13/17 05:58 05:58 05:58 WBC RBC Hgb Hct MCV MCH MCHC RDW Plt Count Lymph % (Auto) Eos % (Auto) Luce # Eos # Baso # Seg Neutrophils % Seg Neuts % (Manual) Lymphocytes % (Manual) Monocytes % (Manual) Eosinophils % (Manual) Nucleated RBC % Seg Neutrophils # Seg Neutrophils # Man Lymphocytes # (Manual) Monocytes # (Manual) Eosinophils # (Manual) APTT POC ABG pH ABG pH POC ABG pCO2 POC ABG pO2 ABG pO2 ABG HCO3 ABG O2 Saturation ABG Base Excess ABG Hemoglobin VBG pH Oxyhemoglobin Sodium 132 L D Potassium Chloride 90.0 L Carbon Dioxide 20 L BUN Creatinine Glucose 346 H POC Glucose 298 H Lactic Acid 4.50 H* Calcium 8.2 L Phosphorus Total Bilirubin AST ALT C-Reactive Protein Total Protein Albumin Triglycerides Amylase Lipase Urine WBC (Auto) Vancomycin Trough Crossmatch 12/13/17 12/13/17 12/13/17 06:27 09:42 11:47 WBC RBC Hgb Hct MCV MCH MCHC RDW Plt Count Lymph % (Auto) Eos % (Auto) Luce # Eos # Baso # Seg Neutrophils % Seg Neuts % (Manual) Lymphocytes % (Manual) Monocytes % (Manual) Eosinophils % (Manual) Nucleated RBC % Seg Neutrophils # Seg Neutrophils # Man Lymphocytes # (Manual) Monocytes # (Manual) Eosinophils # (Manual) APTT POC ABG pH 7.267 L 7.298 L ABG pH POC ABG pCO2 50.4 H 51.3 H POC ABG pO2 47 L 43 L ABG pO2 ABG HCO3 ABG O2 Saturation ABG Base Excess ABG Hemoglobin VBG pH Oxyhemoglobin Sodium Potassium Chloride Carbon Dioxide BUN Creatinine Glucose POC Glucose 376 H Lactic Acid Calcium Phosphorus Total Bilirubin AST ALT C-Reactive Protein Total Protein Albumin Triglycerides Amylase Lipase Urine WBC (Auto) Vancomycin Trough Crossmatch 12/13/17 12/13/17 12/13/17 12:03 13:47 13:47 WBC RBC Hgb Hct MCV MCH MCHC RDW Plt Count Lymph % (Auto) Eos % (Auto) Luce # Eos # Baso # Seg Neutrophils % Seg Neuts % (Manual) Lymphocytes % (Manual) Monocytes % (Manual) Eosinophils % (Manual) Nucleated RBC % Seg Neutrophils # Seg Neutrophils # Man Lymphocytes # (Manual) Monocytes # (Manual) Eosinophils # (Manual) APTT POC ABG pH 7.264 L ABG pH POC ABG pCO2 54.9 H POC ABG pO2 55 L ABG pO2 ABG HCO3 ABG O2 Saturation ABG Base Excess ABG Hemoglobin VBG pH Oxyhemoglobin Sodium Potassium Chloride Carbon Dioxide BUN Creatinine Glucose POC Glucose Lactic Acid 2.80 H* Calcium Phosphorus Total Bilirubin AST ALT C-Reactive Protein Total Protein Albumin Triglycerides Amylase 20 L Lipase 9 L Urine WBC (Auto) Vancomycin Trough Crossmatch 12/13/17 12/13/17 12/13/17 15:36 17:39 21:47 WBC RBC Hgb Hct MCV MCH MCHC RDW Plt Count Lymph % (Auto) Eos % (Auto) Luce # Eos # Baso # Seg Neutrophils % Seg Neuts % (Manual) Lymphocytes % (Manual) Monocytes % (Manual) Eosinophils % (Manual) Nucleated RBC % Seg Neutrophils # Seg Neutrophils # Man Lymphocytes # (Manual) Monocytes # (Manual) Eosinophils # (Manual) APTT POC ABG pH 7.229 L 7.225 L ABG pH POC ABG pCO2 60.9 H 66.3 H POC ABG pO2 42 L 41 L ABG pO2 ABG HCO3 ABG O2 Saturation ABG Base Excess ABG Hemoglobin VBG pH Oxyhemoglobin Sodium Potassium Chloride Carbon Dioxide BUN Creatinine Glucose POC Glucose 289 H Lactic Acid Calcium Phosphorus Total Bilirubin AST ALT C-Reactive Protein Total Protein Albumin Triglycerides Amylase Lipase Urine WBC (Auto) Vancomycin Trough Crossmatch 12/13/17 12/14/17 12/14/17 22:19 02:03 05:16 WBC RBC Hgb Hct MCV MCH MCHC RDW Plt Count Lymph % (Auto) Eos % (Auto) Luce # Eos # Baso # Seg Neutrophils % Seg Neuts % (Manual) Lymphocytes % (Manual) Monocytes % (Manual) Eosinophils % (Manual) Nucleated RBC % Seg Neutrophils # Seg Neutrophils # Man Lymphocytes # (Manual) Monocytes # (Manual) Eosinophils # (Manual) APTT POC ABG pH 7.247 L ABG pH POC ABG pCO2 61.2 H POC ABG pO2 53 L ABG pO2 ABG HCO3 ABG O2 Saturation ABG Base Excess ABG Hemoglobin VBG pH Oxyhemoglobin Sodium Potassium Chloride Carbon Dioxide BUN Creatinine Glucose POC Glucose 274 H 295 H Lactic Acid Calcium Phosphorus Total Bilirubin AST ALT C-Reactive Protein Total Protein Albumin Triglycerides Amylase Lipase Urine WBC (Auto) Vancomycin Trough Crossmatch 12/14/17 12/14/17 12/14/17 05:32 12:04 16:22 WBC RBC Hgb Hct MCV MCH MCHC RDW Plt Count Lymph % (Auto) Eos % (Auto) Luce # Eos # Baso # Seg Neutrophils % Seg Neuts % (Manual) Lymphocytes % (Manual) Monocytes % (Manual) Eosinophils % (Manual) Nucleated RBC % Seg Neutrophils # Seg Neutrophils # Man Lymphocytes # (Manual) Monocytes # (Manual) Eosinophils # (Manual) APTT POC ABG pH ABG pH POC ABG pCO2 POC ABG pO2 ABG pO2 ABG HCO3 ABG O2 Saturation ABG Base Excess ABG Hemoglobin VBG pH Oxyhemoglobin Sodium Potassium Chloride Carbon Dioxide BUN Creatinine Glucose POC Glucose 230 H 241 H 231 H Lactic Acid Calcium Phosphorus Total Bilirubin AST ALT C-Reactive Protein Total Protein Albumin Triglycerides Amylase Lipase Urine WBC (Auto) Vancomycin Trough Crossmatch 12/14/17 12/15/17 12/15/17 21:29 02:29 03:25 WBC RBC Hgb Hct MCV MCH MCHC RDW Plt Count Lymph % (Auto) Eos % (Auto) Luce # Eos # Baso # Seg Neutrophils % Seg Neuts % (Manual) Lymphocytes % (Manual) Monocytes % (Manual) Eosinophils % (Manual) Nucleated RBC % Seg Neutrophils # Seg Neutrophils # Man Lymphocytes # (Manual) Monocytes # (Manual) Eosinophils # (Manual) APTT POC ABG pH 7.330 L ABG pH POC ABG pCO2 55.3 H POC ABG pO2 59 L ABG pO2 ABG HCO3 ABG O2 Saturation ABG Base Excess ABG Hemoglobin VBG pH Oxyhemoglobin Sodium Potassium Chloride Carbon Dioxide BUN Creatinine Glucose POC Glucose 258 H 246 H Lactic Acid Calcium Phosphorus Total Bilirubin AST ALT C-Reactive Protein Total Protein Albumin Triglycerides Amylase Lipase Urine WBC (Auto) Vancomycin Trough Crossmatch 12/15/17 12/15/17 12/15/17 04:05 04:05 04:05 WBC 15.0 H RBC 3.40 L Hgb 11.3 L D Hct 33.8 L D MCV 100 H MCH 33 H MCHC RDW Plt Count 48 L Lymph % (Auto) Eos % (Auto) Luce # Eos # Baso # Seg Neutrophils % Seg Neuts % (Manual) Lymphocytes % (Manual) 3.0 L Monocytes % (Manual) Eosinophils % (Manual) Nucleated RBC % 2.0 H Seg Neutrophils # Seg Neutrophils # Man Lymphocytes # (Manual) 0.5 L Monocytes # (Manual) 0.9 H Eosinophils # (Manual) APTT 20.9 L POC ABG pH ABG pH POC ABG pCO2 POC ABG pO2 ABG pO2 ABG HCO3 ABG O2 Saturation ABG Base Excess ABG Hemoglobin VBG pH Oxyhemoglobin Sodium Potassium Chloride Carbon Dioxide BUN 27 H Creatinine Glucose 258 H POC Glucose Lactic Acid Calcium 8.1 L Phosphorus Total Bilirubin AST ALT C-Reactive Protein Total Protein Albumin Triglycerides Amylase Lipase Urine WBC (Auto) Vancomycin Trough Crossmatch 12/15/17 12/15/17 12/15/17 05:32 11:17 14:59 WBC RBC Hgb Hct MCV MCH MCHC RDW Plt Count Lymph % (Auto) Eos % (Auto) Luce # Eos # Baso # Seg Neutrophils % Seg Neuts % (Manual) Lymphocytes % (Manual) Monocytes % (Manual) Eosinophils % (Manual) Nucleated RBC % Seg Neutrophils # Seg Neutrophils # Man Lymphocytes # (Manual) Monocytes # (Manual) Eosinophils # (Manual) APTT POC ABG pH ABG pH POC ABG pCO2 POC ABG pO2 ABG pO2 ABG HCO3 ABG O2 Saturation ABG Base Excess ABG Hemoglobin VBG pH Oxyhemoglobin Sodium Potassium Chloride Carbon Dioxide BUN Creatinine Glucose POC Glucose 247 H 268 H 233 H Lactic Acid Calcium Phosphorus Total Bilirubin AST ALT C-Reactive Protein Total Protein Albumin Triglycerides Amylase Lipase Urine WBC (Auto) Vancomycin Trough Crossmatch 12/15/17 12/15/17 12/15/17 17:00 18:59 21:37 WBC RBC Hgb Hct MCV MCH MCHC RDW Plt Count Lymph % (Auto) Eos % (Auto) Luce # Eos # Baso # Seg Neutrophils % Seg Neuts % (Manual) Lymphocytes % (Manual) Monocytes % (Manual) Eosinophils % (Manual) Nucleated RBC % Seg Neutrophils # Seg Neutrophils # Man Lymphocytes # (Manual) Monocytes # (Manual) Eosinophils # (Manual) APTT POC ABG pH ABG pH POC ABG pCO2 POC ABG pO2 ABG pO2 ABG HCO3 ABG O2 Saturation ABG Base Excess ABG Hemoglobin VBG pH Oxyhemoglobin Sodium Potassium Chloride Carbon Dioxide BUN Creatinine Glucose POC Glucose 195 H 208 H Lactic Acid Calcium Phosphorus Total Bilirubin AST ALT C-Reactive Protein Total Protein Albumin Triglycerides Amylase Lipase Urine WBC (Auto) 38.0 H Vancomycin Trough Crossmatch 12/16/17 12/16/17 12/16/17 03:17 03:33 04:18 WBC 16.4 H RBC 3.50 L Hgb 11.3 L Hct 35.4 L MCV 101 H MCH MCHC RDW Plt Count 54 L Lymph % (Auto) Eos % (Auto) Luce # Eos # Baso # Seg Neutrophils % Seg Neuts % (Manual) Lymphocytes % (Manual) Monocytes % (Manual) Eosinophils % (Manual) Nucleated RBC % Seg Neutrophils # Seg Neutrophils # Man Lymphocytes # (Manual) Monocytes # (Manual) Eosinophils # (Manual) APTT POC ABG pH ABG pH POC ABG pCO2 47.7 H POC ABG pO2 ABG pO2 ABG HCO3 ABG O2 Saturation ABG Base Excess ABG Hemoglobin VBG pH Oxyhemoglobin Sodium Potassium Chloride Carbon Dioxide BUN Creatinine Glucose POC Glucose 227 H Lactic Acid Calcium Phosphorus Total Bilirubin AST ALT C-Reactive Protein Total Protein Albumin Triglycerides Amylase Lipase Urine WBC (Auto) Vancomycin Trough Crossmatch 12/16/17 12/16/17 12/16/17 04:18 05:08 10:01 WBC RBC Hgb Hct MCV MCH MCHC RDW Plt Count Lymph % (Auto) Eos % (Auto) Luce # Eos # Baso # Seg Neutrophils % Seg Neuts % (Manual) Lymphocytes % (Manual) Monocytes % (Manual) Eosinophils % (Manual) Nucleated RBC % Seg Neutrophils # Seg Neutrophils # Man Lymphocytes # (Manual) Monocytes # (Manual) Eosinophils # (Manual) APTT POC ABG pH ABG pH POC ABG pCO2 POC ABG pO2 ABG pO2 ABG HCO3 ABG O2 Saturation ABG Base Excess ABG Hemoglobin VBG pH Oxyhemoglobin Sodium 147 H Potassium Chloride 107.4 H Carbon Dioxide BUN 28 H Creatinine Glucose 240 H POC Glucose 227 H 190 H Lactic Acid Calcium 8.3 L Phosphorus Total Bilirubin AST ALT C-Reactive Protein Total Protein Albumin Triglycerides Amylase Lipase Urine WBC (Auto) Vancomycin Trough Crossmatch 12/16/17 12/16/17 12/16/17 14:15 17:51 21:14 WBC RBC Hgb Hct MCV MCH MCHC RDW Plt Count Lymph % (Auto) Eos % (Auto) Luce # Eos # Baso # Seg Neutrophils % Seg Neuts % (Manual) Lymphocytes % (Manual) Monocytes % (Manual) Eosinophils % (Manual) Nucleated RBC % Seg Neutrophils # Seg Neutrophils # Man Lymphocytes # (Manual) Monocytes # (Manual) Eosinophils # (Manual) APTT POC ABG pH ABG pH POC ABG pCO2 POC ABG pO2 ABG pO2 ABG HCO3 ABG O2 Saturation ABG Base Excess ABG Hemoglobin VBG pH Oxyhemoglobin Sodium Potassium Chloride Carbon Dioxide BUN Creatinine Glucose POC Glucose 279 H 272 H 260 H Lactic Acid Calcium Phosphorus Total Bilirubin AST ALT C-Reactive Protein Total Protein Albumin Triglycerides Amylase Lipase Urine WBC (Auto) Vancomycin Trough Crossmatch 12/17/17 12/17/17 12/17/17 02:41 04:28 04:28 WBC 19.1 H RBC 3.50 L Hgb 11.4 L Hct 35.3 L MCV 101 H MCH 33 H MCHC RDW Plt Count 65 L Lymph % (Auto) Eos % (Auto) Luce # Eos # Baso # Seg Neutrophils % Seg Neuts % (Manual) Lymphocytes % (Manual) Monocytes % (Manual) Eosinophils % (Manual) Nucleated RBC % Seg Neutrophils # Seg Neutrophils # Man Lymphocytes # (Manual) Monocytes # (Manual) Eosinophils # (Manual) APTT POC ABG pH ABG pH POC ABG pCO2 POC ABG pO2 ABG pO2 ABG HCO3 ABG O2 Saturation ABG Base Excess ABG Hemoglobin VBG pH Oxyhemoglobin Sodium 153 H Potassium Chloride 111.2 H Carbon Dioxide 31 H BUN 28 H Creatinine Glucose 248 H POC Glucose 300 H Lactic Acid Calcium Phosphorus Total Bilirubin AST ALT C-Reactive Protein Total Protein Albumin Triglycerides Amylase Lipase Urine WBC (Auto) Vancomycin Trough Crossmatch 12/17/17 12/17/17 12/17/17 05:15 05:38 10:16 WBC RBC Hgb Hct MCV MCH MCHC RDW Plt Count Lymph % (Auto) Eos % (Auto) Luce # Eos # Baso # Seg Neutrophils % Seg Neuts % (Manual) Lymphocytes % (Manual) Monocytes % (Manual) Eosinophils % (Manual) Nucleated RBC % Seg Neutrophils # Seg Neutrophils # Man Lymphocytes # (Manual) Monocytes # (Manual) Eosinophils # (Manual) APTT POC ABG pH ABG pH POC ABG pCO2 50.3 H POC ABG pO2 120 H ABG pO2 ABG HCO3 ABG O2 Saturation ABG Base Excess ABG Hemoglobin VBG pH Oxyhemoglobin Sodium Potassium Chloride Carbon Dioxide BUN Creatinine Glucose POC Glucose 231 H 196 H Lactic Acid Calcium Phosphorus Total Bilirubin AST ALT C-Reactive Protein Total Protein Albumin Triglycerides Amylase Lipase Urine WBC (Auto) Vancomycin Trough Crossmatch 12/17/17 12/17/17 12/17/17 14:22 18:14 21:35 WBC RBC Hgb Hct MCV MCH MCHC RDW Plt Count Lymph % (Auto) Eos % (Auto) Luce # Eos # Baso # Seg Neutrophils % Seg Neuts % (Manual) Lymphocytes % (Manual) Monocytes % (Manual) Eosinophils % (Manual) Nucleated RBC % Seg Neutrophils # Seg Neutrophils # Man Lymphocytes # (Manual) Monocytes # (Manual) Eosinophils # (Manual) APTT POC ABG pH ABG pH POC ABG pCO2 POC ABG pO2 ABG pO2 ABG HCO3 ABG O2 Saturation ABG Base Excess ABG Hemoglobin VBG pH Oxyhemoglobin Sodium Potassium Chloride Carbon Dioxide BUN Creatinine Glucose POC Glucose 234 H 215 H 159 H Lactic Acid Calcium Phosphorus Total Bilirubin AST ALT C-Reactive Protein Total Protein Albumin Triglycerides Amylase Lipase Urine WBC (Auto) Vancomycin Trough Crossmatch 12/18/17 12/18/17 12/18/17 00:53 02:58 06:03 WBC RBC Hgb Hct MCV MCH MCHC RDW Plt Count Lymph % (Auto) Eos % (Auto) Luce # Eos # Baso # Seg Neutrophils % Seg Neuts % (Manual) Lymphocytes % (Manual) Monocytes % (Manual) Eosinophils % (Manual) Nucleated RBC % Seg Neutrophils # Seg Neutrophils # Man Lymphocytes # (Manual) Monocytes # (Manual) Eosinophils # (Manual) APTT POC ABG pH ABG pH POC ABG pCO2 56.4 H POC ABG pO2 46 L ABG pO2 ABG HCO3 ABG O2 Saturation ABG Base Excess ABG Hemoglobin VBG pH Oxyhemoglobin Sodium Potassium Chloride Carbon Dioxide BUN Creatinine Glucose POC Glucose 176 H 143 H Lactic Acid Calcium Phosphorus Total Bilirubin AST ALT C-Reactive Protein Total Protein Albumin Triglycerides Amylase Lipase Urine WBC (Auto) Vancomycin Trough Crossmatch 12/18/17 12/18/17 12/18/17 07:59 09:20 09:20 WBC 27.4 H RBC 3.57 L Hgb 11.4 L Hct MCV 101 H MCH MCHC RDW Plt Count 64 L Lymph % (Auto) Eos % (Auto) Luce # Eos # Baso # Seg Neutrophils % Seg Neuts % (Manual) Lymphocytes % (Manual) Monocytes % (Manual) Eosinophils % (Manual) Nucleated RBC % Seg Neutrophils # Seg Neutrophils # Man Lymphocytes # (Manual) Monocytes # (Manual) Eosinophils # (Manual) APTT POC ABG pH ABG pH POC ABG pCO2 POC ABG pO2 ABG pO2 ABG HCO3 ABG O2 Saturation ABG Base Excess ABG Hemoglobin VBG pH Oxyhemoglobin Sodium 152 H Potassium Chloride 107.9 H Carbon Dioxide 34 H BUN 23 H Creatinine 0.7 L Glucose 181 H POC Glucose 197 H Lactic Acid Calcium Phosphorus Total Bilirubin AST ALT C-Reactive Protein Total Protein Albumin Triglycerides Amylase Lipase Urine WBC (Auto) Vancomycin Trough Crossmatch 12/18/17 12/18/17 12/18/17 10:22 15:03 18:15 WBC RBC Hgb Hct MCV MCH MCHC RDW Plt Count Lymph % (Auto) Eos % (Auto) Luce # Eos # Baso # Seg Neutrophils % Seg Neuts % (Manual) Lymphocytes % (Manual) Monocytes % (Manual) Eosinophils % (Manual) Nucleated RBC % Seg Neutrophils # Seg Neutrophils # Man Lymphocytes # (Manual) Monocytes # (Manual) Eosinophils # (Manual) APTT POC ABG pH ABG pH POC ABG pCO2 POC ABG pO2 ABG pO2 ABG HCO3 ABG O2 Saturation ABG Base Excess ABG Hemoglobin VBG pH Oxyhemoglobin Sodium Potassium Chloride Carbon Dioxide BUN Creatinine Glucose POC Glucose 195 H 225 H 238 H Lactic Acid Calcium Phosphorus Total Bilirubin AST ALT C-Reactive Protein Total Protein Albumin Triglycerides Amylase Lipase Urine WBC (Auto) Vancomycin Trough Crossmatch 12/18/17 12/18/17 12/19/17 18:29 21:53 00:18 WBC RBC Hgb Hct MCV MCH MCHC RDW Plt Count Lymph % (Auto) Eos % (Auto) Luce # Eos # Baso # Seg Neutrophils % Seg Neuts % (Manual) Lymphocytes % (Manual) Monocytes % (Manual) Eosinophils % (Manual) Nucleated RBC % Seg Neutrophils # Seg Neutrophils # Man Lymphocytes # (Manual) Monocytes # (Manual) Eosinophils # (Manual) APTT POC ABG pH 7.476 H ABG pH POC ABG pCO2 50.4 H POC ABG pO2 158 H ABG pO2 ABG HCO3 ABG O2 Saturation ABG Base Excess ABG Hemoglobin VBG pH Oxyhemoglobin Sodium Potassium Chloride Carbon Dioxide BUN Creatinine Glucose POC Glucose 231 H 263 H Lactic Acid Calcium Phosphorus Total Bilirubin AST ALT C-Reactive Protein Total Protein Albumin Triglycerides Amylase Lipase Urine WBC (Auto) Vancomycin Trough Crossmatch 12/19/17 12/19/17 12/19/17 02:09 04:07 04:07 WBC 25.9 H RBC 3.25 L Hgb 10.6 L Hct 32.8 L MCV 101 H MCH 33 H MCHC RDW Plt Count 67 L Lymph % (Auto) Eos % (Auto) Luce # Eos # Baso # Seg Neutrophils % Seg Neuts % (Manual) Lymphocytes % (Manual) 4.0 L Monocytes % (Manual) Eosinophils % (Manual) Nucleated RBC % Seg Neutrophils # Seg Neutrophils # Man 14.8 H Lymphocytes # (Manual) 1.0 L Monocytes # (Manual) Eosinophils # (Manual) APTT POC ABG pH ABG pH POC ABG pCO2 POC ABG pO2 ABG pO2 ABG HCO3 ABG O2 Saturation ABG Base Excess ABG Hemoglobin VBG pH Oxyhemoglobin Sodium 148 H Potassium Chloride Carbon Dioxide BUN 31 H Creatinine Glucose 314 H POC Glucose 300 H Lactic Acid Calcium 8.1 L Phosphorus Total Bilirubin AST ALT C-Reactive Protein Total Protein Albumin Triglycerides Amylase Lipase Urine WBC (Auto) Vancomycin Trough Crossmatch 12/19/17 12/19/17 12/19/17 05:15 05:41 07:57 WBC RBC Hgb Hct MCV MCH MCHC RDW Plt Count Lymph % (Auto) Eos % (Auto) Luce # Eos # Baso # Seg Neutrophils % Seg Neuts % (Manual) Lymphocytes % (Manual) Monocytes % (Manual) Eosinophils % (Manual) Nucleated RBC % Seg Neutrophils # Seg Neutrophils # Man Lymphocytes # (Manual) Monocytes # (Manual) Eosinophils # (Manual) APTT POC ABG pH 7.507 H ABG pH POC ABG pCO2 POC ABG pO2 ABG pO2 ABG HCO3 ABG O2 Saturation ABG Base Excess ABG Hemoglobin VBG pH Oxyhemoglobin Sodium Potassium Chloride Carbon Dioxide BUN Creatinine Glucose POC Glucose 331 H 307 H Lactic Acid Calcium Phosphorus Total Bilirubin AST ALT C-Reactive Protein Total Protein Albumin Triglycerides Amylase Lipase Urine WBC (Auto) Vancomycin Trough Crossmatch 12/19/17 12/19/17 12/19/17 10:21 14:48 17:59 WBC RBC Hgb Hct MCV MCH MCHC RDW Plt Count Lymph % (Auto) Eos % (Auto) Luce # Eos # Baso # Seg Neutrophils % Seg Neuts % (Manual) Lymphocytes % (Manual) Monocytes % (Manual) Eosinophils % (Manual) Nucleated RBC % Seg Neutrophils # Seg Neutrophils # Man Lymphocytes # (Manual) Monocytes # (Manual) Eosinophils # (Manual) APTT POC ABG pH ABG pH POC ABG pCO2 POC ABG pO2 ABG pO2 ABG HCO3 ABG O2 Saturation ABG Base Excess ABG Hemoglobin VBG pH Oxyhemoglobin Sodium Potassium Chloride Carbon Dioxide BUN Creatinine Glucose POC Glucose 358 H 327 H 355 H Lactic Acid Calcium Phosphorus Total Bilirubin AST ALT C-Reactive Protein Total Protein Albumin Triglycerides Amylase Lipase Urine WBC (Auto) Vancomycin Trough Crossmatch 12/19/17 12/20/17 12/20/17 21:38 02:21 03:42 WBC RBC Hgb Hct MCV MCH MCHC RDW Plt Count Lymph % (Auto) Eos % (Auto) Luce # Eos # Baso # Seg Neutrophils % Seg Neuts % (Manual) Lymphocytes % (Manual) Monocytes % (Manual) Eosinophils % (Manual) Nucleated RBC % Seg Neutrophils # Seg Neutrophils # Man Lymphocytes # (Manual) Monocytes # (Manual) Eosinophils # (Manual) APTT POC ABG pH 7.494 H ABG pH POC ABG pCO2 POC ABG pO2 ABG pO2 ABG HCO3 ABG O2 Saturation ABG Base Excess ABG Hemoglobin VBG pH Oxyhemoglobin Sodium Potassium Chloride Carbon Dioxide BUN Creatinine Glucose POC Glucose 329 H 354 H Lactic Acid Calcium Phosphorus Total Bilirubin AST ALT C-Reactive Protein Total Protein Albumin Triglycerides Amylase Lipase Urine WBC (Auto) Vancomycin Trough Crossmatch 12/20/17 12/20/17 12/20/17 04:08 04:08 04:08 WBC 22.7 H RBC 3.26 L Hgb 10.6 L Hct 32.9 L MCV 101 H MCH 33 H MCHC RDW Plt Count 78 L Lymph % (Auto) Eos % (Auto) Luce # Eos # Baso # Seg Neutrophils % Seg Neuts % (Manual) 80.0 H Lymphocytes % (Manual) 6.0 L Monocytes % (Manual) Eosinophils % (Manual) Nucleated RBC % Seg Neutrophils # Seg Neutrophils # Man 18.2 H Lymphocytes # (Manual) Monocytes # (Manual) Eosinophils # (Manual) APTT POC ABG pH ABG pH POC ABG pCO2 POC ABG pO2 ABG pO2 ABG HCO3 ABG O2 Saturation ABG Base Excess ABG Hemoglobin VBG pH Oxyhemoglobin Sodium Potassium Chloride Carbon Dioxide 31 H BUN 30 H Creatinine 0.6 L Glucose 365 H POC Glucose Lactic Acid Calcium Phosphorus Total Bilirubin AST ALT C-Reactive Protein Total Protein Albumin Triglycerides 981 H Amylase Lipase Urine WBC (Auto) Vancomycin Trough Crossmatch 12/20/17 12/20/17 12/20/17 05:15 10:47 13:40 WBC RBC Hgb Hct MCV MCH MCHC RDW Plt Count Lymph % (Auto) Eos % (Auto) Luce # Eos # Baso # Seg Neutrophils % Seg Neuts % (Manual) Lymphocytes % (Manual) Monocytes % (Manual) Eosinophils % (Manual) Nucleated RBC % Seg Neutrophils # Seg Neutrophils # Man Lymphocytes # (Manual) Monocytes # (Manual) Eosinophils # (Manual) APTT POC ABG pH ABG pH POC ABG pCO2 POC ABG pO2 ABG pO2 ABG HCO3 ABG O2 Saturation ABG Base Excess ABG Hemoglobin VBG pH Oxyhemoglobin Sodium Potassium Chloride Carbon Dioxide BUN Creatinine Glucose POC Glucose 342 H 330 H Lactic Acid Calcium Phosphorus Total Bilirubin AST ALT C-Reactive Protein 7.10 H Total Protein Albumin Triglycerides Amylase Lipase Urine WBC (Auto) Vancomycin Trough Crossmatch 12/20/17 12/20/17 12/20/17 13:40 14:52 16:55 WBC RBC Hgb Hct MCV MCH MCHC RDW Plt Count Lymph % (Auto) Eos % (Auto) Luce # Eos # Baso # Seg Neutrophils % Seg Neuts % (Manual) Lymphocytes % (Manual) Monocytes % (Manual) Eosinophils % (Manual) Nucleated RBC % Seg Neutrophils # Seg Neutrophils # Man Lymphocytes # (Manual) Monocytes # (Manual) Eosinophils # (Manual) APTT POC ABG pH 7.484 H ABG pH POC ABG pCO2 POC ABG pO2 ABG pO2 ABG HCO3 ABG O2 Saturation ABG Base Excess ABG Hemoglobin VBG pH Oxyhemoglobin Sodium Potassium Chloride Carbon Dioxide BUN Creatinine Glucose POC Glucose 293 H Lactic Acid Calcium Phosphorus Total Bilirubin AST ALT C-Reactive Protein Total Protein Albumin Triglycerides 1042 H Amylase Lipase Urine WBC (Auto) Vancomycin Trough Crossmatch 12/20/17 12/20/17 12/21/17 18:00 21:58 02:05 WBC RBC Hgb Hct MCV MCH MCHC RDW Plt Count Lymph % (Auto) Eos % (Auto) Luce # Eos # Baso # Seg Neutrophils % Seg Neuts % (Manual) Lymphocytes % (Manual) Monocytes % (Manual) Eosinophils % (Manual) Nucleated RBC % Seg Neutrophils # Seg Neutrophils # Man Lymphocytes # (Manual) Monocytes # (Manual) Eosinophils # (Manual) APTT POC ABG pH ABG pH POC ABG pCO2 POC ABG pO2 ABG pO2 ABG HCO3 ABG O2 Saturation ABG Base Excess ABG Hemoglobin VBG pH Oxyhemoglobin Sodium Potassium Chloride Carbon Dioxide BUN Creatinine Glucose POC Glucose 268 H 272 H 229 H Lactic Acid Calcium Phosphorus Total Bilirubin AST ALT C-Reactive Protein Total Protein Albumin Triglycerides Amylase Lipase Urine WBC (Auto) Vancomycin Trough Crossmatch 12/21/17 12/21/17 12/21/17 03:59 06:23 08:57 WBC RBC Hgb Hct MCV MCH MCHC RDW Plt Count Lymph % (Auto) Eos % (Auto) Luce # Eos # Baso # Seg Neutrophils % Seg Neuts % (Manual) Lymphocytes % (Manual) Monocytes % (Manual) Eosinophils % (Manual) Nucleated RBC % Seg Neutrophils # Seg Neutrophils # Man Lymphocytes # (Manual) Monocytes # (Manual) Eosinophils # (Manual) APTT POC ABG pH 7.474 H ABG pH POC ABG pCO2 POC ABG pO2 71 L ABG pO2 ABG HCO3 ABG O2 Saturation ABG Base Excess ABG Hemoglobin VBG pH Oxyhemoglobin Sodium Potassium Chloride Carbon Dioxide BUN Creatinine Glucose POC Glucose 182 H 217 H Lactic Acid Calcium Phosphorus Total Bilirubin AST ALT C-Reactive Protein Total Protein Albumin Triglycerides Amylase Lipase Urine WBC (Auto) Vancomycin Trough Crossmatch 12/21/17 12/21/17 12/21/17 13:59 18:00 21:20 WBC RBC Hgb Hct MCV MCH MCHC RDW Plt Count Lymph % (Auto) Eos % (Auto) Luce # Eos # Baso # Seg Neutrophils % Seg Neuts % (Manual) Lymphocytes % (Manual) Monocytes % (Manual) Eosinophils % (Manual) Nucleated RBC % Seg Neutrophils # Seg Neutrophils # Man Lymphocytes # (Manual) Monocytes # (Manual) Eosinophils # (Manual) APTT POC ABG pH ABG pH POC ABG pCO2 POC ABG pO2 ABG pO2 ABG HCO3 ABG O2 Saturation ABG Base Excess ABG Hemoglobin VBG pH Oxyhemoglobin Sodium Potassium Chloride Carbon Dioxide BUN Creatinine Glucose POC Glucose 185 H 176 H 187 H Lactic Acid Calcium Phosphorus Total Bilirubin AST ALT C-Reactive Protein Total Protein Albumin Triglycerides Amylase Lipase Urine WBC (Auto) Vancomycin Trough Crossmatch 12/21/17 12/22/17 12/22/17 23:48 04:39 05:30 WBC RBC Hgb Hct MCV MCH MCHC RDW Plt Count Lymph % (Auto) Eos % (Auto) Luce # Eos # Baso # Seg Neutrophils % Seg Neuts % (Manual) Lymphocytes % (Manual) Monocytes % (Manual) Eosinophils % (Manual) Nucleated RBC % Seg Neutrophils # Seg Neutrophils # Man Lymphocytes # (Manual) Monocytes # (Manual) Eosinophils # (Manual) APTT POC ABG pH 7.528 H ABG pH POC ABG pCO2 POC ABG pO2 63 L ABG pO2 ABG HCO3 ABG O2 Saturation ABG Base Excess ABG Hemoglobin VBG pH Oxyhemoglobin Sodium Potassium Chloride Carbon Dioxide BUN Creatinine Glucose POC Glucose 126 H 117 H Lactic Acid Calcium Phosphorus Total Bilirubin AST ALT C-Reactive Protein Total Protein Albumin Triglycerides Amylase Lipase Urine WBC (Auto) Vancomycin Trough Crossmatch 12/22/17 12/22/17 12/22/17 09:12 10:34 10:34 WBC 29.5 H RBC 3.44 L Hgb 11.2 L Hct 34.2 L MCV 99 H MCH 33 H MCHC RDW 13.1 L Plt Count 97 L Lymph % (Auto) Eos % (Auto) Luce # Eos # Baso # Seg Neutrophils % Seg Neuts % (Manual) 88.0 H Lymphocytes % (Manual) 5.0 L Monocytes % (Manual) Eosinophils % (Manual) Nucleated RBC % Seg Neutrophils # Seg Neutrophils # Man 26.0 H Lymphocytes # (Manual) Monocytes # (Manual) Eosinophils # (Manual) APTT POC ABG pH ABG pH POC ABG pCO2 POC ABG pO2 ABG pO2 ABG HCO3 ABG O2 Saturation ABG Base Excess ABG Hemoglobin VBG pH Oxyhemoglobin Sodium 146 H Potassium 3.1 L Chloride Carbon Dioxide BUN 25 H Creatinine 0.7 L Glucose 146 H POC Glucose 168 H Lactic Acid Calcium 8.1 L Phosphorus Total Bilirubin AST ALT C-Reactive Protein Total Protein Albumin Triglycerides Amylase Lipase Urine WBC (Auto) Vancomycin Trough Crossmatch 12/22/17 12/22/17 12/22/17 14:51 17:21 21:43 WBC RBC Hgb Hct MCV MCH MCHC RDW Plt Count Lymph % (Auto) Eos % (Auto) Luce # Eos # Baso # Seg Neutrophils % Seg Neuts % (Manual) Lymphocytes % (Manual) Monocytes % (Manual) Eosinophils % (Manual) Nucleated RBC % Seg Neutrophils # Seg Neutrophils # Man Lymphocytes # (Manual) Monocytes # (Manual) Eosinophils # (Manual) APTT POC ABG pH ABG pH POC ABG pCO2 POC ABG pO2 ABG pO2 ABG HCO3 ABG O2 Saturation ABG Base Excess ABG Hemoglobin VBG pH Oxyhemoglobin Sodium Potassium Chloride Carbon Dioxide BUN Creatinine Glucose POC Glucose 125 H 110 H 153 H Lactic Acid Calcium Phosphorus Total Bilirubin AST ALT C-Reactive Protein Total Protein Albumin Triglycerides Amylase Lipase Urine WBC (Auto) Vancomycin Trough Crossmatch 12/23/17 12/23/17 12/23/17 04:33 05:28 09:25 WBC 31.4 H RBC 3.05 L Hgb 9.8 L Hct 30.2 L MCV 99 H MCH MCHC RDW 12.9 L Plt Count 101 L Lymph % (Auto) Eos % (Auto) Luce # Eos # Baso # Seg Neutrophils % Seg Neuts % (Manual) 97 H Lymphocytes % (Manual) 2 L Monocytes % (Manual) Eosinophils % (Manual) Nucleated RBC % Seg Neutrophils # Seg Neutrophils # Man 31.1 H Lymphocytes # (Manual) 0.5 L Monocytes # (Manual) Eosinophils # (Manual) APTT POC ABG pH 7.573 H ABG pH POC ABG pCO2 31.0 L POC ABG pO2 63 L ABG pO2 ABG HCO3 ABG O2 Saturation ABG Base Excess ABG Hemoglobin VBG pH Oxyhemoglobin Sodium Potassium Chloride Carbon Dioxide BUN Creatinine Glucose POC Glucose 124 H Lactic Acid Calcium Phosphorus Total Bilirubin AST ALT C-Reactive Protein Total Protein Albumin Triglycerides Amylase Lipase Urine WBC (Auto) Vancomycin Trough Crossmatch 12/23/17 12/23/17 12/23/17 09:25 10:08 14:20 WBC RBC Hgb Hct MCV MCH MCHC RDW Plt Count Lymph % (Auto) Eos % (Auto) Luce # Eos # Baso # Seg Neutrophils % Seg Neuts % (Manual) Lymphocytes % (Manual) Monocytes % (Manual) Eosinophils % (Manual) Nucleated RBC % Seg Neutrophils # Seg Neutrophils # Man Lymphocytes # (Manual) Monocytes # (Manual) Eosinophils # (Manual) APTT POC ABG pH ABG pH POC ABG pCO2 POC ABG pO2 ABG pO2 ABG HCO3 ABG O2 Saturation ABG Base Excess ABG Hemoglobin VBG pH Oxyhemoglobin Sodium Potassium 3.1 L Chloride Carbon Dioxide BUN Creatinine 0.6 L Glucose 169 H POC Glucose 171 H 211 H Lactic Acid Calcium 7.9 L Phosphorus Total Bilirubin AST ALT C-Reactive Protein Total Protein Albumin Triglycerides Amylase Lipase Urine WBC (Auto) Vancomycin Trough Crossmatch 12/23/17 12/23/17 12/24/17 18:59 21:49 01:47 WBC RBC Hgb Hct MCV MCH MCHC RDW Plt Count Lymph % (Auto) Eos % (Auto) Luce # Eos # Baso # Seg Neutrophils % Seg Neuts % (Manual) Lymphocytes % (Manual) Monocytes % (Manual) Eosinophils % (Manual) Nucleated RBC % Seg Neutrophils # Seg Neutrophils # Man Lymphocytes # (Manual) Monocytes # (Manual) Eosinophils # (Manual) APTT POC ABG pH ABG pH POC ABG pCO2 POC ABG pO2 ABG pO2 ABG HCO3 ABG O2 Saturation ABG Base Excess ABG Hemoglobin VBG pH Oxyhemoglobin Sodium Potassium Chloride Carbon Dioxide BUN Creatinine Glucose POC Glucose 175 H 146 H 143 H Lactic Acid Calcium Phosphorus Total Bilirubin AST ALT C-Reactive Protein Total Protein Albumin Triglycerides Amylase Lipase Urine WBC (Auto) Vancomycin Trough Crossmatch 12/24/17 12/24/17 12/24/17 05:40 10:12 13:12 WBC RBC Hgb Hct MCV MCH MCHC RDW Plt Count Lymph % (Auto) Eos % (Auto) Luce # Eos # Baso # Seg Neutrophils % Seg Neuts % (Manual) Lymphocytes % (Manual) Monocytes % (Manual) Eosinophils % (Manual) Nucleated RBC % Seg Neutrophils # Seg Neutrophils # Man Lymphocytes # (Manual) Monocytes # (Manual) Eosinophils # (Manual) APTT POC ABG pH 7.558 H ABG pH POC ABG pCO2 27.6 L POC ABG pO2 71 L ABG pO2 ABG HCO3 ABG O2 Saturation ABG Base Excess ABG Hemoglobin VBG pH Oxyhemoglobin Sodium Potassium Chloride Carbon Dioxide BUN Creatinine Glucose POC Glucose 118 H 111 H Lactic Acid Calcium Phosphorus Total Bilirubin AST ALT C-Reactive Protein Total Protein Albumin Triglycerides Amylase Lipase Urine WBC (Auto) Vancomycin Trough Crossmatch 12/24/17 12/24/17 12/24/17 16:26 20:44 21:49 WBC RBC Hgb Hct MCV MCH MCHC RDW Plt Count Lymph % (Auto) Eos % (Auto) Luce # Eos # Baso # Seg Neutrophils % Seg Neuts % (Manual) Lymphocytes % (Manual) Monocytes % (Manual) Eosinophils % (Manual) Nucleated RBC % Seg Neutrophils # Seg Neutrophils # Man Lymphocytes # (Manual) Monocytes # (Manual) Eosinophils # (Manual) APTT POC ABG pH ABG pH POC ABG pCO2 POC ABG pO2 ABG pO2 ABG HCO3 ABG O2 Saturation ABG Base Excess ABG Hemoglobin VBG pH Oxyhemoglobin Sodium Potassium Chloride Carbon Dioxide BUN Creatinine Glucose POC Glucose 113 H 124 H 115 H Lactic Acid Calcium Phosphorus Total Bilirubin AST ALT C-Reactive Protein Total Protein Albumin Triglycerides Amylase Lipase Urine WBC (Auto) Vancomycin Trough Crossmatch 12/24/17 12/25/17 12/25/17 Unknown 02:26 03:38 WBC RBC Hgb Hct MCV MCH MCHC RDW Plt Count Lymph % (Auto) Eos % (Auto) Luce # Eos # Baso # Seg Neutrophils % Seg Neuts % (Manual) Lymphocytes % (Manual) Monocytes % (Manual) Eosinophils % (Manual) Nucleated RBC % Seg Neutrophils # Seg Neutrophils # Man Lymphocytes # (Manual) Monocytes # (Manual) Eosinophils # (Manual) APTT POC ABG pH 7.503 H ABG pH POC ABG pCO2 POC ABG pO2 66 L ABG pO2 ABG HCO3 ABG O2 Saturation ABG Base Excess ABG Hemoglobin VBG pH Oxyhemoglobin Sodium Potassium 3.0 L Chloride Carbon Dioxide BUN Creatinine 0.5 L Glucose 166 H POC Glucose 106 H Lactic Acid Calcium 7.8 L Phosphorus Total Bilirubin AST ALT C-Reactive Protein Total Protein Albumin Triglycerides Amylase Lipase Urine WBC (Auto) Vancomycin Trough Crossmatch 12/25/17 12/25/17 12/25/17 04:58 12:58 15:06 WBC RBC Hgb Hct MCV MCH MCHC RDW Plt Count Lymph % (Auto) Eos % (Auto) Luce # Eos # Baso # Seg Neutrophils % Seg Neuts % (Manual) Lymphocytes % (Manual) Monocytes % (Manual) Eosinophils % (Manual) Nucleated RBC % Seg Neutrophils # Seg Neutrophils # Man Lymphocytes # (Manual) Monocytes # (Manual) Eosinophils # (Manual) APTT POC ABG pH ABG pH POC ABG pCO2 POC ABG pO2 ABG pO2 ABG HCO3 ABG O2 Saturation ABG Base Excess ABG Hemoglobin VBG pH Oxyhemoglobin Sodium Potassium Chloride Carbon Dioxide BUN Creatinine Glucose POC Glucose 113 H 118 H Lactic Acid Calcium Phosphorus Total Bilirubin AST ALT C-Reactive Protein Total Protein Albumin Triglycerides Amylase Lipase Urine WBC (Auto) Vancomycin Trough 22.5 H Crossmatch 12/25/17 12/25/17 12/25/17 17:59 21:33 Unknown WBC 20.5 H RBC 2.75 L Hgb 9.1 L Hct 27.1 L MCV 99 H MCH 33 H MCHC RDW Plt Count 126 L Lymph % (Auto) Eos % (Auto) Luce # Eos # Baso # Seg Neutrophils % Seg Neuts % (Manual) 89.0 H Lymphocytes % (Manual) 6.0 L Monocytes % (Manual) Eosinophils % (Manual) Nucleated RBC % Seg Neutrophils # Seg Neutrophils # Man 18.2 H Lymphocytes # (Manual) Monocytes # (Manual) Eosinophils # (Manual) APTT POC ABG pH ABG pH POC ABG pCO2 POC ABG pO2 ABG pO2 ABG HCO3 ABG O2 Saturation ABG Base Excess ABG Hemoglobin VBG pH Oxyhemoglobin Sodium Potassium Chloride Carbon Dioxide BUN Creatinine Glucose POC Glucose 145 H 167 H Lactic Acid Calcium Phosphorus Total Bilirubin AST ALT C-Reactive Protein Total Protein Albumin Triglycerides Amylase Lipase Urine WBC (Auto) Vancomycin Trough Crossmatch 12/25/17 12/26/17 12/26/17 Unknown 02:26 05:29 WBC RBC Hgb Hct MCV MCH MCHC RDW Plt Count Lymph % (Auto) Eos % (Auto) Luce # Eos # Baso # Seg Neutrophils % Seg Neuts % (Manual) Lymphocytes % (Manual) Monocytes % (Manual) Eosinophils % (Manual) Nucleated RBC % Seg Neutrophils # Seg Neutrophils # Man Lymphocytes # (Manual) Monocytes # (Manual) Eosinophils # (Manual) APTT POC ABG pH ABG pH POC ABG pCO2 POC ABG pO2 ABG pO2 ABG HCO3 ABG O2 Saturation ABG Base Excess ABG Hemoglobin VBG pH Oxyhemoglobin Sodium Potassium 2.8 L* Chloride Carbon Dioxide BUN Creatinine 0.6 L Glucose POC Glucose 167 H 216 H Lactic Acid Calcium 7.4 L Phosphorus Total Bilirubin AST ALT C-Reactive Protein Total Protein Albumin Triglycerides Amylase Lipase Urine WBC (Auto) Vancomycin Trough Crossmatch 12/26/17 12/26/17 12/26/17 10:21 14:30 18:35 WBC RBC Hgb Hct MCV MCH MCHC RDW Plt Count Lymph % (Auto) Eos % (Auto) Luce # Eos # Baso # Seg Neutrophils % Seg Neuts % (Manual) Lymphocytes % (Manual) Monocytes % (Manual) Eosinophils % (Manual) Nucleated RBC % Seg Neutrophils # Seg Neutrophils # Man Lymphocytes # (Manual) Monocytes # (Manual) Eosinophils # (Manual) APTT POC ABG pH ABG pH POC ABG pCO2 POC ABG pO2 ABG pO2 ABG HCO3 ABG O2 Saturation ABG Base Excess ABG Hemoglobin VBG pH Oxyhemoglobin Sodium Potassium Chloride Carbon Dioxide BUN Creatinine Glucose POC Glucose 164 H 157 H 146 H Lactic Acid Calcium Phosphorus Total Bilirubin AST ALT C-Reactive Protein Total Protein Albumin Triglycerides Amylase Lipase Urine WBC (Auto) Vancomycin Trough Crossmatch 12/26/17 12/26/17 12/27/17 21:21 Unknown 01:54 WBC RBC Hgb Hct MCV MCH MCHC RDW Plt Count Lymph % (Auto) Eos % (Auto) Luce # Eos # Baso # Seg Neutrophils % Seg Neuts % (Manual) Lymphocytes % (Manual) Monocytes % (Manual) Eosinophils % (Manual) Nucleated RBC % Seg Neutrophils # Seg Neutrophils # Man Lymphocytes # (Manual) Monocytes # (Manual) Eosinophils # (Manual) APTT POC ABG pH ABG pH POC ABG pCO2 POC ABG pO2 ABG pO2 ABG HCO3 ABG O2 Saturation ABG Base Excess ABG Hemoglobin VBG pH Oxyhemoglobin Sodium Potassium 3.0 L Chloride Carbon Dioxide BUN Creatinine 0.5 L Glucose 166 H POC Glucose 132 H 157 H Lactic Acid Calcium 7.8 L Phosphorus Total Bilirubin AST ALT C-Reactive Protein Total Protein Albumin Triglycerides Amylase Lipase Urine WBC (Auto) Vancomycin Trough Crossmatch 12/27/17 12/27/17 12/27/17 05:20 05:20 05:44 WBC 26.4 H RBC 2.83 L Hgb 9.3 L Hct 27.6 L MCV 98 H MCH 33 H MCHC RDW Plt Count Lymph % (Auto) Eos % (Auto) Luce # Eos # Baso # Seg Neutrophils % Seg Neuts % (Manual) 85.0 H Lymphocytes % (Manual) 5.0 L Monocytes % (Manual) Eosinophils % (Manual) Nucleated RBC % Seg Neutrophils # Seg Neutrophils # Man 22.4 H Lymphocytes # (Manual) Monocytes # (Manual) Eosinophils # (Manual) 0.5 H APTT POC ABG pH ABG pH POC ABG pCO2 POC ABG pO2 ABG pO2 ABG HCO3 ABG O2 Saturation ABG Base Excess ABG Hemoglobin VBG pH Oxyhemoglobin Sodium Potassium 2.3 L* D Chloride Carbon Dioxide BUN 7 L Creatinine 0.6 L Glucose 123 H POC Glucose 128 H Lactic Acid Calcium 8.1 L Phosphorus Total Bilirubin AST ALT C-Reactive Protein Total Protein Albumin Triglycerides Amylase Lipase Urine WBC (Auto) Vancomycin Trough Crossmatch 12/27/17 12/27/17 12/27/17 10:04 14:44 15:30 WBC RBC Hgb Hct MCV MCH MCHC RDW Plt Count Lymph % (Auto) Eos % (Auto) Luce # Eos # Baso # Seg Neutrophils % Seg Neuts % (Manual) Lymphocytes % (Manual) Monocytes % (Manual) Eosinophils % (Manual) Nucleated RBC % Seg Neutrophils # Seg Neutrophils # Man Lymphocytes # (Manual) Monocytes # (Manual) Eosinophils # (Manual) APTT POC ABG pH ABG pH POC ABG pCO2 POC ABG pO2 ABG pO2 ABG HCO3 ABG O2 Saturation ABG Base Excess ABG Hemoglobin VBG pH Oxyhemoglobin Sodium Potassium 3.1 L D Chloride Carbon Dioxide BUN Creatinine Glucose POC Glucose 115 H 128 H Lactic Acid Calcium Phosphorus Total Bilirubin AST ALT C-Reactive Protein Total Protein Albumin Triglycerides Amylase Lipase Urine WBC (Auto) Vancomycin Trough Crossmatch 12/28/17 12/28/17 12/28/17 00:39 02:13 05:17 WBC RBC Hgb Hct MCV MCH MCHC RDW Plt Count Lymph % (Auto) Eos % (Auto) Luce # Eos # Baso # Seg Neutrophils % Seg Neuts % (Manual) Lymphocytes % (Manual) Monocytes % (Manual) Eosinophils % (Manual) Nucleated RBC % Seg Neutrophils # Seg Neutrophils # Man Lymphocytes # (Manual) Monocytes # (Manual) Eosinophils # (Manual) APTT POC ABG pH ABG pH 7.497 H POC ABG pCO2 POC ABG pO2 ABG pO2 71.4 L ABG HCO3 29.9 H ABG O2 Saturation ABG Base Excess 6.2 H ABG Hemoglobin 7.9 L VBG pH Oxyhemoglobin 94.9 L Sodium Potassium Chloride Carbon Dioxide BUN Creatinine Glucose POC Glucose 112 H 108 H Lactic Acid Calcium Phosphorus Total Bilirubin AST ALT C-Reactive Protein Total Protein Albumin Triglycerides Amylase Lipase Urine WBC (Auto) Vancomycin Trough Crossmatch 12/28/17 12/28/17 12/28/17 08:47 08:47 09:10 WBC 28.1 H RBC 2.76 L Hgb 9.1 L Hct 27.0 L MCV 98 H MCH 33 H MCHC RDW Plt Count Lymph % (Auto) Eos % (Auto) Luce # Eos # Baso # Seg Neutrophils % Seg Neuts % (Manual) Lymphocytes % (Manual) Monocytes % (Manual) Eosinophils % (Manual) Nucleated RBC % Seg Neutrophils # Seg Neutrophils # Man Lymphocytes # (Manual) Monocytes # (Manual) Eosinophils # (Manual) APTT POC ABG pH ABG pH POC ABG pCO2 POC ABG pO2 ABG pO2 ABG HCO3 ABG O2 Saturation ABG Base Excess ABG Hemoglobin VBG pH Oxyhemoglobin Sodium Potassium 2.2 L* D Chloride Carbon Dioxide BUN 5 L Creatinine 0.5 L Glucose 106 H POC Glucose Lactic Acid Calcium 8.3 L Phosphorus 2.20 L Total Bilirubin AST ALT C-Reactive Protein Total Protein Albumin Triglycerides Amylase Lipase Urine WBC (Auto) Vancomycin Trough Crossmatch 12/28/17 12/28/17 12/28/17 13:28 14:22 18:48 WBC RBC Hgb Hct MCV MCH MCHC RDW Plt Count Lymph % (Auto) Eos % (Auto) Luce # Eos # Baso # Seg Neutrophils % Seg Neuts % (Manual) Lymphocytes % (Manual) Monocytes % (Manual) Eosinophils % (Manual) Nucleated RBC % Seg Neutrophils # Seg Neutrophils # Man Lymphocytes # (Manual) Monocytes # (Manual) Eosinophils # (Manual) APTT POC ABG pH ABG pH 7.476 H POC ABG pCO2 POC ABG pO2 ABG pO2 167.7 H ABG HCO3 30.9 H ABG O2 Saturation 99.1 H ABG Base Excess 6.7 H ABG Hemoglobin 8.5 L VBG pH Oxyhemoglobin Sodium Potassium Chloride Carbon Dioxide BUN Creatinine Glucose POC Glucose 141 H 129 H Lactic Acid Calcium Phosphorus Total Bilirubin AST ALT C-Reactive Protein Total Protein Albumin Triglycerides Amylase Lipase Urine WBC (Auto) Vancomycin Trough Crossmatch 12/28/17 12/29/17 12/29/17 21:22 02:45 05:11 WBC RBC Hgb Hct MCV MCH MCHC RDW Plt Count Lymph % (Auto) Eos % (Auto) Luce # Eos # Baso # Seg Neutrophils % Seg Neuts % (Manual) Lymphocytes % (Manual) Monocytes % (Manual) Eosinophils % (Manual) Nucleated RBC % Seg Neutrophils # Seg Neutrophils # Man Lymphocytes # (Manual) Monocytes # (Manual) Eosinophils # (Manual) APTT POC ABG pH ABG pH POC ABG pCO2 POC ABG pO2 ABG pO2 ABG HCO3 ABG O2 Saturation ABG Base Excess ABG Hemoglobin VBG pH Oxyhemoglobin Sodium Potassium Chloride Carbon Dioxide BUN Creatinine Glucose POC Glucose 123 H 138 H 138 H Lactic Acid Calcium Phosphorus Total Bilirubin AST ALT C-Reactive Protein Total Protein Albumin Triglycerides Amylase Lipase Urine WBC (Auto) Vancomycin Trough Crossmatch 12/29/17 12/29/17 12/29/17 05:50 08:04 08:04 WBC 20.8 H RBC 2.26 L Hgb 7.5 L Hct 22.7 L MCV 100 H MCH 33 H MCHC RDW Plt Count Lymph % (Auto) Eos % (Auto) Luce # Eos # Baso # Seg Neutrophils % Seg Neuts % (Manual) 93.0 H Lymphocytes % (Manual) 2.0 L Monocytes % (Manual) Eosinophils % (Manual) Nucleated RBC % Seg Neutrophils # Seg Neutrophils # Man 19.3 H Lymphocytes # (Manual) 0.4 L Monocytes # (Manual) Eosinophils # (Manual) 0.7 H APTT POC ABG pH ABG pH 7.467 H POC ABG pCO2 POC ABG pO2 ABG pO2 ABG HCO3 28.2 H ABG O2 Saturation ABG Base Excess 4.0 H ABG Hemoglobin < 5.1 L VBG pH Oxyhemoglobin Sodium Potassium 3.0 L D Chloride Carbon Dioxide BUN Creatinine 0.5 L Glucose 147 H POC Glucose Lactic Acid Calcium 7.8 L Phosphorus Total Bilirubin AST ALT C-Reactive Protein Total Protein 5.6 L Albumin 2.4 L Triglycerides Amylase Lipase Urine WBC (Auto) Vancomycin Trough Crossmatch 12/29/17 12/29/17 12/29/17 08:20 10:59 14:09 WBC RBC Hgb Hct MCV MCH MCHC RDW Plt Count Lymph % (Auto) Eos % (Auto) Luce # Eos # Baso # Seg Neutrophils % Seg Neuts % (Manual) Lymphocytes % (Manual) Monocytes % (Manual) Eosinophils % (Manual) Nucleated RBC % Seg Neutrophils # Seg Neutrophils # Man Lymphocytes # (Manual) Monocytes # (Manual) Eosinophils # (Manual) APTT POC ABG pH ABG pH POC ABG pCO2 POC ABG pO2 ABG pO2 ABG HCO3 ABG O2 Saturation ABG Base Excess ABG Hemoglobin VBG pH Oxyhemoglobin Sodium Potassium Chloride Carbon Dioxide BUN Creatinine Glucose POC Glucose 153 H 186 H 183 H Lactic Acid Calcium Phosphorus Total Bilirubin AST ALT C-Reactive Protein Total Protein Albumin Triglycerides Amylase Lipase Urine WBC (Auto) Vancomycin Trough Crossmatch 12/29/17 12/29/17 12/29/17 18:03 22:05 22:56 WBC RBC Hgb Hct MCV MCH MCHC RDW Plt Count Lymph % (Auto) Eos % (Auto) Luce # Eos # Baso # Seg Neutrophils % Seg Neuts % (Manual) Lymphocytes % (Manual) Monocytes % (Manual) Eosinophils % (Manual) Nucleated RBC % Seg Neutrophils # Seg Neutrophils # Man Lymphocytes # (Manual) Monocytes # (Manual) Eosinophils # (Manual) APTT POC ABG pH ABG pH POC ABG pCO2 POC ABG pO2 ABG pO2 ABG HCO3 ABG O2 Saturation ABG Base Excess ABG Hemoglobin VBG pH Oxyhemoglobin Sodium Potassium Chloride Carbon Dioxide BUN Creatinine Glucose POC Glucose 159 H 146 H 179 H Lactic Acid Calcium Phosphorus Total Bilirubin AST ALT C-Reactive Protein Total Protein Albumin Triglycerides Amylase Lipase Urine WBC (Auto) Vancomycin Trough Crossmatch 12/30/17 12/30/17 12/30/17 02:03 04:50 04:50 WBC 18.3 H RBC 2.22 L Hgb 7.4 L Hct 23.0 L MCV 104 H MCH 33 H MCHC RDW Plt Count 137 L Lymph % (Auto) 9.0 L Eos % (Auto) Luce # Eos # 0.5 H Baso # Seg Neutrophils % 84.9 H Seg Neuts % (Manual) Lymphocytes % (Manual) Monocytes % (Manual) Eosinophils % (Manual) Nucleated RBC % Seg Neutrophils # 15.6 H Seg Neutrophils # Man Lymphocytes # (Manual) Monocytes # (Manual) Eosinophils # (Manual) APTT POC ABG pH ABG pH POC ABG pCO2 POC ABG pO2 ABG pO2 ABG HCO3 ABG O2 Saturation ABG Base Excess ABG Hemoglobin VBG pH Oxyhemoglobin Sodium 147 H Potassium 3.1 L D Chloride 107.5 H Carbon Dioxide BUN Creatinine 0.5 L Glucose 120 H POC Glucose 118 H Lactic Acid Calcium 7.4 L Phosphorus Total Bilirubin AST ALT C-Reactive Protein Total Protein Albumin Triglycerides Amylase Lipase Urine WBC (Auto) Vancomycin Trough Crossmatch 12/30/17 12/30/17 12/30/17 05:04 13:53 17:33 WBC RBC Hgb Hct MCV MCH MCHC RDW Plt Count Lymph % (Auto) Eos % (Auto) Luce # Eos # Baso # Seg Neutrophils % Seg Neuts % (Manual) Lymphocytes % (Manual) Monocytes % (Manual) Eosinophils % (Manual) Nucleated RBC % Seg Neutrophils # Seg Neutrophils # Man Lymphocytes # (Manual) Monocytes # (Manual) Eosinophils # (Manual) APTT POC ABG pH ABG pH POC ABG pCO2 POC ABG pO2 ABG pO2 ABG HCO3 ABG O2 Saturation ABG Base Excess ABG Hemoglobin VBG pH Oxyhemoglobin Sodium Potassium Chloride Carbon Dioxide BUN Creatinine Glucose POC Glucose 150 H 113 H 145 H Lactic Acid Calcium Phosphorus Total Bilirubin AST ALT C-Reactive Protein Total Protein Albumin Triglycerides Amylase Lipase Urine WBC (Auto) Vancomycin Trough Crossmatch 12/31/17 12/31/17 12/31/17 01:54 03:15 03:15 WBC 17.1 H RBC 2.08 L Hgb 6.9 L Hct 20.6 L MCV 99 H MCH 33 H MCHC RDW 13.1 L Plt Count Lymph % (Auto) 10.5 L Eos % (Auto) Luce # Eos # 0.6 H Baso # Seg Neutrophils % 82.3 H Seg Neuts % (Manual) Lymphocytes % (Manual) Monocytes % (Manual) Eosinophils % (Manual) Nucleated RBC % Seg Neutrophils # 14.0 H Seg Neutrophils # Man Lymphocytes # (Manual) Monocytes # (Manual) Eosinophils # (Manual) APTT POC ABG pH ABG pH POC ABG pCO2 POC ABG pO2 ABG pO2 ABG HCO3 ABG O2 Saturation ABG Base Excess ABG Hemoglobin VBG pH Oxyhemoglobin Sodium Potassium 3.5 L Chloride Carbon Dioxide BUN Creatinine 0.6 L Glucose POC Glucose 69 L Lactic Acid Calcium 7.8 L Phosphorus Total Bilirubin AST ALT C-Reactive Protein Total Protein Albumin Triglycerides Amylase Lipase Urine WBC (Auto) Vancomycin Trough Crossmatch 12/31/17 12/31/17 12/31/17 05:15 09:25 10:17 WBC RBC Hgb Hct MCV MCH MCHC RDW Plt Count Lymph % (Auto) Eos % (Auto) Luce # Eos # Baso # Seg Neutrophils % Seg Neuts % (Manual) Lymphocytes % (Manual) Monocytes % (Manual) Eosinophils % (Manual) Nucleated RBC % Seg Neutrophils # Seg Neutrophils # Man Lymphocytes # (Manual) Monocytes # (Manual) Eosinophils # (Manual) APTT POC ABG pH ABG pH 7.516 H POC ABG pCO2 POC ABG pO2 ABG pO2 69.2 L ABG HCO3 28.7 H ABG O2 Saturation ABG Base Excess 5.3 H ABG Hemoglobin 6.6 L VBG pH Oxyhemoglobin 93.8 L Sodium Potassium Chloride Carbon Dioxide BUN Creatinine Glucose POC Glucose 143 H Lactic Acid Calcium Phosphorus Total Bilirubin AST ALT C-Reactive Protein Total Protein Albumin Triglycerides Amylase Lipase Urine WBC (Auto) Vancomycin Trough Crossmatch See Detail 12/31/17 12/31/17 12/31/17 14:20 18:30 21:40 WBC RBC Hgb Hct MCV MCH MCHC RDW Plt Count Lymph % (Auto) Eos % (Auto) Luce # Eos # Baso # Seg Neutrophils % Seg Neuts % (Manual) Lymphocytes % (Manual) Monocytes % (Manual) Eosinophils % (Manual) Nucleated RBC % Seg Neutrophils # Seg Neutrophils # Man Lymphocytes # (Manual) Monocytes # (Manual) Eosinophils # (Manual) APTT POC ABG pH ABG pH POC ABG pCO2 POC ABG pO2 ABG pO2 ABG HCO3 ABG O2 Saturation ABG Base Excess ABG Hemoglobin VBG pH Oxyhemoglobin Sodium Potassium Chloride Carbon Dioxide BUN Creatinine Glucose POC Glucose 175 H 137 H 182 H Lactic Acid Calcium Phosphorus Total Bilirubin AST ALT C-Reactive Protein Total Protein Albumin Triglycerides Amylase Lipase Urine WBC (Auto) Vancomycin Trough Crossmatch 12/31/17 01/01/18 01/01/18 23:34 02:09 04:00 WBC 16.4 H RBC 2.41 L Hgb 7.8 L Hct 23.6 L MCV 98 H MCH 33 H MCHC RDW Plt Count Lymph % (Auto) 10.7 L Eos % (Auto) Luce # Eos # 0.7 H Baso # 0.2 H Seg Neutrophils % 79.0 H Seg Neuts % (Manual) Lymphocytes % (Manual) Monocytes % (Manual) Eosinophils % (Manual) Nucleated RBC % Seg Neutrophils # 12.9 H Seg Neutrophils # Man Lymphocytes # (Manual) Monocytes # (Manual) Eosinophils # (Manual) APTT POC ABG pH ABG pH POC ABG pCO2 POC ABG pO2 ABG pO2 ABG HCO3 ABG O2 Saturation ABG Base Excess ABG Hemoglobin VBG pH Oxyhemoglobin Sodium Potassium Chloride Carbon Dioxide BUN Creatinine Glucose POC Glucose 132 H 117 H Lactic Acid Calcium Phosphorus Total Bilirubin AST ALT C-Reactive Protein Total Protein Albumin Triglycerides Amylase Lipase Urine WBC (Auto) Vancomycin Trough Crossmatch 01/01/18 01/01/18 01/01/18 04:00 04:04 05:32 WBC RBC Hgb Hct MCV MCH MCHC RDW Plt Count Lymph % (Auto) Eos % (Auto) Luce # Eos # Baso # Seg Neutrophils % Seg Neuts % (Manual) Lymphocytes % (Manual) Monocytes % (Manual) Eosinophils % (Manual) Nucleated RBC % Seg Neutrophils # Seg Neutrophils # Man Lymphocytes # (Manual) Monocytes # (Manual) Eosinophils # (Manual) APTT POC ABG pH ABG pH 7.458 H POC ABG pCO2 POC ABG pO2 ABG pO2 67.5 L ABG HCO3 27.5 H ABG O2 Saturation 94.4 L ABG Base Excess 3.4 H ABG Hemoglobin 7.8 L VBG pH Oxyhemoglobin 92.1 L Sodium Potassium Chloride Carbon Dioxide BUN Creatinine 0.4 L Glucose 129 H POC Glucose 129 H Lactic Acid Calcium 7.9 L Phosphorus Total Bilirubin AST ALT C-Reactive Protein Total Protein Albumin Triglycerides Amylase Lipase Urine WBC (Auto) Vancomycin Trough Crossmatch 01/01/18 01/01/18 01/01/18 10:10 12:38 17:27 WBC RBC Hgb Hct MCV MCH MCHC RDW Plt Count Lymph % (Auto) Eos % (Auto) Luce # Eos # Baso # Seg Neutrophils % Seg Neuts % (Manual) Lymphocytes % (Manual) Monocytes % (Manual) Eosinophils % (Manual) Nucleated RBC % Seg Neutrophils # Seg Neutrophils # Man Lymphocytes # (Manual) Monocytes # (Manual) Eosinophils # (Manual) APTT POC ABG pH ABG pH POC ABG pCO2 POC ABG pO2 ABG pO2 ABG HCO3 ABG O2 Saturation ABG Base Excess ABG Hemoglobin VBG pH Oxyhemoglobin Sodium Potassium Chloride Carbon Dioxide BUN Creatinine Glucose POC Glucose 155 H 179 H 152 H Lactic Acid Calcium Phosphorus Total Bilirubin AST ALT C-Reactive Protein Total Protein Albumin Triglycerides Amylase Lipase Urine WBC (Auto) Vancomycin Trough Crossmatch 01/01/18 01/02/18 01/02/18 21:36 01:42 04:10 WBC 12.1 H RBC 2.29 L Hgb 7.5 L Hct 22.7 L MCV 99 H MCH 33 H MCHC RDW Plt Count Lymph % (Auto) Eos % (Auto) 5.5 H Luce # 0.9 H Eos # 0.7 H Baso # Seg Neutrophils % Seg Neuts % (Manual) Lymphocytes % (Manual) Monocytes % (Manual) Eosinophils % (Manual) Nucleated RBC % Seg Neutrophils # 8.3 H Seg Neutrophils # Man Lymphocytes # (Manual) Monocytes # (Manual) Eosinophils # (Manual) APTT POC ABG pH ABG pH POC ABG pCO2 POC ABG pO2 ABG pO2 ABG HCO3 ABG O2 Saturation ABG Base Excess ABG Hemoglobin VBG pH Oxyhemoglobin Sodium Potassium Chloride Carbon Dioxide BUN Creatinine Glucose POC Glucose 118 H 117 H Lactic Acid Calcium Phosphorus Total Bilirubin AST ALT C-Reactive Protein Total Protein Albumin Triglycerides Amylase Lipase Urine WBC (Auto) Vancomycin Trough Crossmatch 01/02/18 01/02/18 01/02/18 04:10 04:57 13:42 WBC RBC Hgb Hct MCV MCH MCHC RDW Plt Count Lymph % (Auto) Eos % (Auto) Luce # Eos # Baso # Seg Neutrophils % Seg Neuts % (Manual) Lymphocytes % (Manual) Monocytes % (Manual) Eosinophils % (Manual) Nucleated RBC % Seg Neutrophils # Seg Neutrophils # Man Lymphocytes # (Manual) Monocytes # (Manual) Eosinophils # (Manual) APTT POC ABG pH ABG pH POC ABG pCO2 POC ABG pO2 ABG pO2 ABG HCO3 ABG O2 Saturation ABG Base Excess ABG Hemoglobin VBG pH Oxyhemoglobin Sodium Potassium Chloride 97.0 L Carbon Dioxide BUN Creatinine 0.4 L Glucose POC Glucose 107 H 133 H Lactic Acid Calcium 8.1 L Phosphorus Total Bilirubin AST ALT C-Reactive Protein Total Protein 6.0 L Albumin 2.5 L Triglycerides Amylase Lipase Urine WBC (Auto) Vancomycin Trough Crossmatch 01/02/18 01/02/18 01/03/18 17:33 22:11 02:18 WBC RBC Hgb Hct MCV MCH MCHC RDW Plt Count Lymph % (Auto) Eos % (Auto) Luce # Eos # Baso # Seg Neutrophils % Seg Neuts % (Manual) Lymphocytes % (Manual) Monocytes % (Manual) Eosinophils % (Manual) Nucleated RBC % Seg Neutrophils # Seg Neutrophils # Man Lymphocytes # (Manual) Monocytes # (Manual) Eosinophils # (Manual) APTT POC ABG pH ABG pH POC ABG pCO2 POC ABG pO2 ABG pO2 ABG HCO3 ABG O2 Saturation ABG Base Excess ABG Hemoglobin VBG pH Oxyhemoglobin Sodium Potassium Chloride Carbon Dioxide BUN Creatinine Glucose POC Glucose 146 H 171 H 162 H Lactic Acid Calcium Phosphorus Total Bilirubin AST ALT C-Reactive Protein Total Protein Albumin Triglycerides Amylase Lipase Urine WBC (Auto) Vancomycin Trough Crossmatch 01/03/18 01/03/18 01/03/18 04:56 05:21 17:20 WBC RBC Hgb Hct MCV MCH MCHC RDW Plt Count Lymph % (Auto) Eos % (Auto) Luce # Eos # Baso # Seg Neutrophils % Seg Neuts % (Manual) Lymphocytes % (Manual) Monocytes % (Manual) Eosinophils % (Manual) Nucleated RBC % Seg Neutrophils # Seg Neutrophils # Man Lymphocytes # (Manual) Monocytes # (Manual) Eosinophils # (Manual) APTT POC ABG pH ABG pH POC ABG pCO2 POC ABG pO2 ABG pO2 79.5 L ABG HCO3 31.4 H ABG O2 Saturation ABG Base Excess 6.3 H ABG Hemoglobin 10.4 L VBG pH Oxyhemoglobin 94.2 L Sodium Potassium Chloride Carbon Dioxide BUN Creatinine Glucose POC Glucose 163 H 153 H Lactic Acid Calcium Phosphorus Total Bilirubin AST ALT C-Reactive Protein Total Protein Albumin Triglycerides Amylase Lipase Urine WBC (Auto) Vancomycin Trough Crossmatch 01/03/18 01/03/18 01/04/18 17:50 19:52 00:40 WBC RBC Hgb Hct MCV MCH MCHC RDW Plt Count Lymph % (Auto) Eos % (Auto) Luce # Eos # Baso # Seg Neutrophils % Seg Neuts % (Manual) Lymphocytes % (Manual) Monocytes % (Manual) Eosinophils % (Manual) Nucleated RBC % Seg Neutrophils # Seg Neutrophils # Man Lymphocytes # (Manual) Monocytes # (Manual) Eosinophils # (Manual) APTT POC ABG pH ABG pH POC ABG pCO2 POC ABG pO2 ABG pO2 ABG HCO3 ABG O2 Saturation ABG Base Excess ABG Hemoglobin VBG pH Oxyhemoglobin Sodium Potassium Chloride Carbon Dioxide BUN Creatinine Glucose POC Glucose 157 H 147 H 158 H Lactic Acid Calcium Phosphorus Total Bilirubin AST ALT C-Reactive Protein Total Protein Albumin Triglycerides Amylase Lipase Urine WBC (Auto) Vancomycin Trough Crossmatch 01/04/18 01/04/18 01/04/18 04:01 05:13 06:12 WBC 11.5 H RBC 2.95 L Hgb 9.8 L Hct 29.5 L D MCV 100 H MCH 33 H MCHC RDW Plt Count Lymph % (Auto) Eos % (Auto) Luce # Eos # Baso # Seg Neutrophils % Seg Neuts % (Manual) Lymphocytes % (Manual) Monocytes % (Manual) Eosinophils % (Manual) 6.0 H Nucleated RBC % Seg Neutrophils # Seg Neutrophils # Man Lymphocytes # (Manual) Monocytes # (Manual) Eosinophils # (Manual) 0.7 H APTT POC ABG pH ABG pH 7.498 H POC ABG pCO2 POC ABG pO2 ABG pO2 129.5 H ABG HCO3 30.1 H ABG O2 Saturation ABG Base Excess 6.4 H ABG Hemoglobin 9.3 L VBG pH Oxyhemoglobin Sodium Potassium Chloride Carbon Dioxide BUN Creatinine Glucose POC Glucose 163 H Lactic Acid Calcium Phosphorus Total Bilirubin AST ALT C-Reactive Protein Total Protein Albumin Triglycerides Amylase Lipase Urine WBC (Auto) Vancomycin Trough Crossmatch 01/04/18 01/04/18 01/04/18 06:12 10:55 14:29 WBC RBC Hgb Hct MCV MCH MCHC RDW Plt Count Lymph % (Auto) Eos % (Auto) Luce # Eos # Baso # Seg Neutrophils % Seg Neuts % (Manual) Lymphocytes % (Manual) Monocytes % (Manual) Eosinophils % (Manual) Nucleated RBC % Seg Neutrophils # Seg Neutrophils # Man Lymphocytes # (Manual) Monocytes # (Manual) Eosinophils # (Manual) APTT POC ABG pH ABG pH POC ABG pCO2 POC ABG pO2 ABG pO2 ABG HCO3 ABG O2 Saturation ABG Base Excess ABG Hemoglobin VBG pH Oxyhemoglobin Sodium Potassium Chloride Carbon Dioxide BUN Creatinine 0.5 L Glucose 174 H POC Glucose 187 H 144 H Lactic Acid Calcium Phosphorus Total Bilirubin AST 41 H ALT C-Reactive Protein Total Protein Albumin 2.9 L Triglycerides Amylase Lipase Urine WBC (Auto) Vancomycin Trough Crossmatch 01/04/18 01/04/18 01/05/18 17:25 21:56 01:59 WBC RBC Hgb Hct MCV MCH MCHC RDW Plt Count Lymph % (Auto) Eos % (Auto) Luce # Eos # Baso # Seg Neutrophils % Seg Neuts % (Manual) Lymphocytes % (Manual) Monocytes % (Manual) Eosinophils % (Manual) Nucleated RBC % Seg Neutrophils # Seg Neutrophils # Man Lymphocytes # (Manual) Monocytes # (Manual) Eosinophils # (Manual) APTT POC ABG pH ABG pH POC ABG pCO2 POC ABG pO2 ABG pO2 ABG HCO3 ABG O2 Saturation ABG Base Excess ABG Hemoglobin VBG pH Oxyhemoglobin Sodium Potassium Chloride Carbon Dioxide BUN Creatinine Glucose POC Glucose 156 H 171 H 162 H Lactic Acid Calcium Phosphorus Total Bilirubin AST ALT C-Reactive Protein Total Protein Albumin Triglycerides Amylase Lipase Urine WBC (Auto) Vancomycin Trough Crossmatch 01/05/18 01/05/18 01/05/18 03:50 06:00 06:07 WBC RBC Hgb Hct MCV MCH MCHC RDW Plt Count Lymph % (Auto) Eos % (Auto) Luce # Eos # Baso # Seg Neutrophils % Seg Neuts % (Manual) Lymphocytes % (Manual) Monocytes % (Manual) Eosinophils % (Manual) Nucleated RBC % Seg Neutrophils # Seg Neutrophils # Man Lymphocytes # (Manual) Monocytes # (Manual) Eosinophils # (Manual) APTT POC ABG pH ABG pH POC ABG pCO2 POC ABG pO2 ABG pO2 64.6 L ABG HCO3 30.2 H ABG O2 Saturation 91.3 L ABG Base Excess 5.5 H ABG Hemoglobin 10.1 L VBG pH Oxyhemoglobin 89.0 L Sodium Potassium Chloride Carbon Dioxide BUN Creatinine 0.4 L Glucose 144 H POC Glucose 136 H Lactic Acid Calcium Phosphorus Total Bilirubin AST ALT C-Reactive Protein Total Protein Albumin Triglycerides Amylase Lipase Urine WBC (Auto) Vancomycin Trough Crossmatch 01/05/18 01/05/18 01/05/18 10:46 14:03 17:31 WBC RBC Hgb Hct MCV MCH MCHC RDW Plt Count Lymph % (Auto) Eos % (Auto) Luce # Eos # Baso # Seg Neutrophils % Seg Neuts % (Manual) Lymphocytes % (Manual) Monocytes % (Manual) Eosinophils % (Manual) Nucleated RBC % Seg Neutrophils # Seg Neutrophils # Man Lymphocytes # (Manual) Monocytes # (Manual) Eosinophils # (Manual) APTT POC ABG pH ABG pH POC ABG pCO2 POC ABG pO2 ABG pO2 ABG HCO3 ABG O2 Saturation ABG Base Excess ABG Hemoglobin VBG pH Oxyhemoglobin Sodium Potassium Chloride Carbon Dioxide BUN Creatinine Glucose POC Glucose 147 H 141 H 192 H Lactic Acid Calcium Phosphorus Total Bilirubin AST ALT C-Reactive Protein Total Protein Albumin Triglycerides Amylase Lipase Urine WBC (Auto) Vancomycin Trough Crossmatch 01/05/18 01/05/18 01/06/18 22:12 Unknown 01:58 WBC RBC Hgb Hct MCV MCH MCHC RDW Plt Count Lymph % (Auto) Eos % (Auto) Luce # Eos # Baso # Seg Neutrophils % Seg Neuts % (Manual) Lymphocytes % (Manual) Monocytes % (Manual) Eosinophils % (Manual) Nucleated RBC % Seg Neutrophils # Seg Neutrophils # Man Lymphocytes # (Manual) Monocytes # (Manual) Eosinophils # (Manual) APTT POC ABG pH ABG pH 7.463 H POC ABG pCO2 POC ABG pO2 ABG pO2 74.0 L ABG HCO3 29.4 H ABG O2 Saturation ABG Base Excess 5.2 H ABG Hemoglobin 10.0 L VBG pH Oxyhemoglobin 93.4 L Sodium Potassium Chloride Carbon Dioxide BUN Creatinine Glucose POC Glucose 209 H 138 H Lactic Acid Calcium Phosphorus Total Bilirubin AST ALT C-Reactive Protein Total Protein Albumin Triglycerides Amylase Lipase Urine WBC (Auto) Vancomycin Trough Crossmatch 01/06/18 01/06/18 01/06/18 03:14 05:30 05:30 WBC 12.6 H RBC 3.16 L Hgb 10.4 L Hct 31.7 L MCV 100 H MCH 33 H MCHC RDW 15.5 H Plt Count Lymph % (Auto) Eos % (Auto) Luce # Eos # Baso # Seg Neutrophils % Seg Neuts % (Manual) 72.0 H Lymphocytes % (Manual) Monocytes % (Manual) 9.0 H Eosinophils % (Manual) Nucleated RBC % 1.0 H Seg Neutrophils # Seg Neutrophils # Man 9.1 H Lymphocytes # (Manual) Monocytes # (Manual) 1.1 H Eosinophils # (Manual) APTT POC ABG pH ABG pH POC ABG pCO2 POC ABG pO2 ABG pO2 ABG HCO3 28.8 H ABG O2 Saturation ABG Base Excess 4.2 H ABG Hemoglobin 9.3 L VBG pH Oxyhemoglobin 94.7 L Sodium 136 L Potassium Chloride 94.2 L Carbon Dioxide BUN Creatinine 0.4 L Glucose 146 H POC Glucose Lactic Acid Calcium Phosphorus Total Bilirubin AST ALT C-Reactive Protein Total Protein Albumin 3.1 L Triglycerides Amylase Lipase Urine WBC (Auto) Vancomycin Trough Crossmatch 01/06/18 01/06/18 01/06/18 05:42 10:00 14:40 WBC RBC Hgb Hct MCV MCH MCHC RDW Plt Count Lymph % (Auto) Eos % (Auto) Luce # Eos # Baso # Seg Neutrophils % Seg Neuts % (Manual) Lymphocytes % (Manual) Monocytes % (Manual) Eosinophils % (Manual) Nucleated RBC % Seg Neutrophils # Seg Neutrophils # Man Lymphocytes # (Manual) Monocytes # (Manual) Eosinophils # (Manual) APTT POC ABG pH ABG pH POC ABG pCO2 POC ABG pO2 ABG pO2 ABG HCO3 ABG O2 Saturation ABG Base Excess ABG Hemoglobin VBG pH Oxyhemoglobin Sodium Potassium Chloride Carbon Dioxide BUN Creatinine Glucose POC Glucose 158 H 155 H 115 H Lactic Acid Calcium Phosphorus Total Bilirubin AST ALT C-Reactive Protein Total Protein Albumin Triglycerides Amylase Lipase Urine WBC (Auto) Vancomycin Trough Crossmatch 01/06/18 01/06/18 01/07/18 17:45 21:59 05:29 WBC RBC Hgb Hct MCV MCH MCHC RDW Plt Count Lymph % (Auto) Eos % (Auto) Luce # Eos # Baso # Seg Neutrophils % Seg Neuts % (Manual) Lymphocytes % (Manual) Monocytes % (Manual) Eosinophils % (Manual) Nucleated RBC % Seg Neutrophils # Seg Neutrophils # Man Lymphocytes # (Manual) Monocytes # (Manual) Eosinophils # (Manual) APTT POC ABG pH ABG pH POC ABG pCO2 POC ABG pO2 ABG pO2 ABG HCO3 ABG O2 Saturation ABG Base Excess ABG Hemoglobin VBG pH Oxyhemoglobin Sodium Potassium Chloride Carbon Dioxide BUN Creatinine Glucose POC Glucose 156 H 177 H 179 H Lactic Acid Calcium Phosphorus Total Bilirubin AST ALT C-Reactive Protein Total Protein Albumin Triglycerides Amylase Lipase Urine WBC (Auto) Vancomycin Trough Crossmatch 01/07/18 01/07/18 01/07/18 10:00 14:32 18:05 WBC RBC Hgb Hct MCV MCH MCHC RDW Plt Count Lymph % (Auto) Eos % (Auto) Luce # Eos # Baso # Seg Neutrophils % Seg Neuts % (Manual) Lymphocytes % (Manual) Monocytes % (Manual) Eosinophils % (Manual) Nucleated RBC % Seg Neutrophils # Seg Neutrophils # Man Lymphocytes # (Manual) Monocytes # (Manual) Eosinophils # (Manual) APTT POC ABG pH ABG pH POC ABG pCO2 POC ABG pO2 ABG pO2 ABG HCO3 ABG O2 Saturation ABG Base Excess ABG Hemoglobin VBG pH Oxyhemoglobin Sodium Potassium Chloride Carbon Dioxide BUN Creatinine Glucose POC Glucose 131 H 177 H 143 H Lactic Acid Calcium Phosphorus Total Bilirubin AST ALT C-Reactive Protein Total Protein Albumin Triglycerides Amylase Lipase Urine WBC (Auto) Vancomycin Trough Crossmatch 01/07/18 01/08/18 01/08/18 22:11 02:26 05:37 WBC RBC Hgb Hct MCV MCH MCHC RDW Plt Count Lymph % (Auto) Eos % (Auto) Luce # Eos # Baso # Seg Neutrophils % Seg Neuts % (Manual) Lymphocytes % (Manual) Monocytes % (Manual) Eosinophils % (Manual) Nucleated RBC % Seg Neutrophils # Seg Neutrophils # Man Lymphocytes # (Manual) Monocytes # (Manual) Eosinophils # (Manual) APTT POC ABG pH ABG pH POC ABG pCO2 POC ABG pO2 ABG pO2 ABG HCO3 ABG O2 Saturation ABG Base Excess ABG Hemoglobin VBG pH Oxyhemoglobin Sodium Potassium Chloride Carbon Dioxide BUN Creatinine Glucose POC Glucose 133 H 194 H 106 H Lactic Acid Calcium Phosphorus Total Bilirubin AST ALT C-Reactive Protein Total Protein Albumin Triglycerides Amylase Lipase Urine WBC (Auto) Vancomycin Trough Crossmatch 01/08/18 01/08/18 01/08/18 09:41 10:45 10:45 WBC 11.6 H RBC 3.21 L Hgb 10.5 L Hct 32.0 L MCV 100 H MCH 33 H MCHC RDW 15.7 H Plt Count Lymph % (Auto) Eos % (Auto) Luce # Eos # Baso # Seg Neutrophils % Seg Neuts % (Manual) Lymphocytes % (Manual) Monocytes % (Manual) Eosinophils % (Manual) Nucleated RBC % Seg Neutrophils # Seg Neutrophils # Man Lymphocytes # (Manual) Monocytes # (Manual) Eosinophils # (Manual) APTT POC ABG pH ABG pH POC ABG pCO2 POC ABG pO2 ABG pO2 ABG HCO3 ABG O2 Saturation ABG Base Excess ABG Hemoglobin VBG pH Oxyhemoglobin Sodium Potassium Chloride 96.4 L Carbon Dioxide BUN Creatinine 0.4 L Glucose 146 H POC Glucose 142 H Lactic Acid Calcium Phosphorus Total Bilirubin AST ALT C-Reactive Protein Total Protein Albumin Triglycerides Amylase Lipase Urine WBC (Auto) Vancomycin Trough Crossmatch 01/08/18 01/08/18 01/08/18 14:31 17:20 21:46 WBC RBC Hgb Hct MCV MCH MCHC RDW Plt Count Lymph % (Auto) Eos % (Auto) Luce # Eos # Baso # Seg Neutrophils % Seg Neuts % (Manual) Lymphocytes % (Manual) Monocytes % (Manual) Eosinophils % (Manual) Nucleated RBC % Seg Neutrophils # Seg Neutrophils # Man Lymphocytes # (Manual) Monocytes # (Manual) Eosinophils # (Manual) APTT POC ABG pH ABG pH POC ABG pCO2 POC ABG pO2 ABG pO2 ABG HCO3 ABG O2 Saturation ABG Base Excess ABG Hemoglobin VBG pH Oxyhemoglobin Sodium Potassium Chloride Carbon Dioxide BUN Creatinine Glucose POC Glucose 158 H 160 H 166 H Lactic Acid Calcium Phosphorus Total Bilirubin AST ALT C-Reactive Protein Total Protein Albumin Triglycerides Amylase Lipase Urine WBC (Auto) Vancomycin Trough Crossmatch 01/09/18 01/09/18 01/09/18 02:01 04:30 04:30 WBC RBC 3.21 L Hgb 10.9 L Hct 31.7 L MCV 99 H MCH 34 H MCHC RDW 15.8 H Plt Count Lymph % (Auto) Eos % (Auto) Luce # Eos # Baso # Seg Neutrophils % Seg Neuts % (Manual) Lymphocytes % (Manual) Monocytes % (Manual) Eosinophils % (Manual) Nucleated RBC % Seg Neutrophils # Seg Neutrophils # Man Lymphocytes # (Manual) Monocytes # (Manual) Eosinophils # (Manual) APTT POC ABG pH ABG pH POC ABG pCO2 POC ABG pO2 ABG pO2 ABG HCO3 ABG O2 Saturation ABG Base Excess ABG Hemoglobin VBG pH Oxyhemoglobin Sodium 135 L Potassium Chloride 93.8 L Carbon Dioxide BUN Creatinine 0.5 L Glucose 137 H POC Glucose 155 H Lactic Acid Calcium Phosphorus Total Bilirubin AST ALT C-Reactive Protein Total Protein Albumin Triglycerides Amylase Lipase Urine WBC (Auto) Vancomycin Trough Crossmatch 01/09/18 01/09/18 01/09/18 05:42 10:41 14:01 WBC RBC Hgb Hct MCV MCH MCHC RDW Plt Count Lymph % (Auto) Eos % (Auto) Luce # Eos # Baso # Seg Neutrophils % Seg Neuts % (Manual) Lymphocytes % (Manual) Monocytes % (Manual) Eosinophils % (Manual) Nucleated RBC % Seg Neutrophils # Seg Neutrophils # Man Lymphocytes # (Manual) Monocytes # (Manual) Eosinophils # (Manual) APTT POC ABG pH ABG pH POC ABG pCO2 POC ABG pO2 ABG pO2 ABG HCO3 ABG O2 Saturation ABG Base Excess ABG Hemoglobin VBG pH Oxyhemoglobin Sodium Potassium Chloride Carbon Dioxide BUN Creatinine Glucose POC Glucose 142 H 187 H 138 H Lactic Acid Calcium Phosphorus Total Bilirubin AST ALT C-Reactive Protein Total Protein Albumin Triglycerides Amylase Lipase Urine WBC (Auto) Vancomycin Trough Crossmatch 01/09/18 01/09/18 01/10/18 18:09 21:09 02:06 WBC RBC Hgb Hct MCV MCH MCHC RDW Plt Count Lymph % (Auto) Eos % (Auto) Luce # Eos # Baso # Seg Neutrophils % Seg Neuts % (Manual) Lymphocytes % (Manual) Monocytes % (Manual) Eosinophils % (Manual) Nucleated RBC % Seg Neutrophils # Seg Neutrophils # Man Lymphocytes # (Manual) Monocytes # (Manual) Eosinophils # (Manual) APTT POC ABG pH ABG pH POC ABG pCO2 POC ABG pO2 ABG pO2 ABG HCO3 ABG O2 Saturation ABG Base Excess ABG Hemoglobin VBG pH Oxyhemoglobin Sodium Potassium Chloride Carbon Dioxide BUN Creatinine Glucose POC Glucose 143 H 188 H 160 H Lactic Acid Calcium Phosphorus Total Bilirubin AST ALT C-Reactive Protein Total Protein Albumin Triglycerides Amylase Lipase Urine WBC (Auto) Vancomycin Trough Crossmatch 01/10/18 01/10/18 01/10/18 05:58 09:54 13:58 WBC RBC Hgb Hct MCV MCH MCHC RDW Plt Count Lymph % (Auto) Eos % (Auto) Luce # Eos # Baso # Seg Neutrophils % Seg Neuts % (Manual) Lymphocytes % (Manual) Monocytes % (Manual) Eosinophils % (Manual) Nucleated RBC % Seg Neutrophils # Seg Neutrophils # Man Lymphocytes # (Manual) Monocytes # (Manual) Eosinophils # (Manual) APTT POC ABG pH ABG pH POC ABG pCO2 POC ABG pO2 ABG pO2 ABG HCO3 ABG O2 Saturation ABG Base Excess ABG Hemoglobin VBG pH Oxyhemoglobin Sodium Potassium Chloride Carbon Dioxide BUN Creatinine Glucose POC Glucose 134 H 162 H 152 H Lactic Acid Calcium Phosphorus Total Bilirubin AST ALT C-Reactive Protein Total Protein Albumin Triglycerides Amylase Lipase Urine WBC (Auto) Vancomycin Trough Crossmatch 01/10/18 01/10/18 01/11/18 16:56 21:57 02:22 WBC RBC Hgb Hct MCV MCH MCHC RDW Plt Count Lymph % (Auto) Eos % (Auto) Luce # Eos # Baso # Seg Neutrophils % Seg Neuts % (Manual) Lymphocytes % (Manual) Monocytes % (Manual) Eosinophils % (Manual) Nucleated RBC % Seg Neutrophils # Seg Neutrophils # Man Lymphocytes # (Manual) Monocytes # (Manual) Eosinophils # (Manual) APTT POC ABG pH ABG pH POC ABG pCO2 POC ABG pO2 ABG pO2 ABG HCO3 ABG O2 Saturation ABG Base Excess ABG Hemoglobin VBG pH Oxyhemoglobin Sodium Potassium Chloride Carbon Dioxide BUN Creatinine Glucose POC Glucose 161 H 161 H 159 H Lactic Acid Calcium Phosphorus Total Bilirubin AST ALT C-Reactive Protein Total Protein Albumin Triglycerides Amylase Lipase Urine WBC (Auto) Vancomycin Trough Crossmatch 01/11/18 01/11/18 01/11/18 06:19 10:23 11:21 WBC 12.7 H RBC 3.50 L Hgb 11.5 L Hct 34.8 L MCV 99 H MCH 33 H MCHC RDW Plt Count Lymph % (Auto) Eos % (Auto) Luce # Eos # Baso # Seg Neutrophils % Seg Neuts % (Manual) Lymphocytes % (Manual) Monocytes % (Manual) Eosinophils % (Manual) Nucleated RBC % Seg Neutrophils # Seg Neutrophils # Man Lymphocytes # (Manual) Monocytes # (Manual) Eosinophils # (Manual) APTT POC ABG pH ABG pH POC ABG pCO2 POC ABG pO2 ABG pO2 ABG HCO3 ABG O2 Saturation ABG Base Excess ABG Hemoglobin VBG pH Oxyhemoglobin Sodium Potassium Chloride Carbon Dioxide BUN Creatinine Glucose POC Glucose 174 H 172 H Lactic Acid Calcium Phosphorus Total Bilirubin AST ALT C-Reactive Protein Total Protein Albumin Triglycerides Amylase Lipase Urine WBC (Auto) Vancomycin Trough Crossmatch 01/11/18 01/11/18 01/11/18 11:21 14:00 17:19 WBC RBC Hgb Hct MCV MCH MCHC RDW Plt Count Lymph % (Auto) Eos % (Auto) Luce # Eos # Baso # Seg Neutrophils % Seg Neuts % (Manual) Lymphocytes % (Manual) Monocytes % (Manual) Eosinophils % (Manual) Nucleated RBC % Seg Neutrophils # Seg Neutrophils # Man Lymphocytes # (Manual) Monocytes # (Manual) Eosinophils # (Manual) APTT POC ABG pH ABG pH POC ABG pCO2 POC ABG pO2 ABG pO2 ABG HCO3 ABG O2 Saturation ABG Base Excess ABG Hemoglobin VBG pH Oxyhemoglobin Sodium 133 L Potassium Chloride 92.9 L Carbon Dioxide BUN Creatinine 0.4 L Glucose 156 H POC Glucose 152 H 177 H Lactic Acid Calcium Phosphorus Total Bilirubin AST ALT C-Reactive Protein Total Protein Albumin Triglycerides Amylase Lipase Urine WBC (Auto) Vancomycin Trough Crossmatch 01/11/18 01/12/18 01/12/18 22:20 02:09 05:50 WBC RBC Hgb Hct MCV MCH MCHC RDW Plt Count Lymph % (Auto) Eos % (Auto) Luce # Eos # Baso # Seg Neutrophils % Seg Neuts % (Manual) Lymphocytes % (Manual) Monocytes % (Manual) Eosinophils % (Manual) Nucleated RBC % Seg Neutrophils # Seg Neutrophils # Man Lymphocytes # (Manual) Monocytes # (Manual) Eosinophils # (Manual) APTT POC ABG pH ABG pH POC ABG pCO2 POC ABG pO2 ABG pO2 ABG HCO3 ABG O2 Saturation ABG Base Excess ABG Hemoglobin VBG pH Oxyhemoglobin Sodium Potassium Chloride Carbon Dioxide BUN Creatinine Glucose POC Glucose 208 H 179 H 165 H Lactic Acid Calcium Phosphorus Total Bilirubin AST ALT C-Reactive Protein Total Protein Albumin Triglycerides Amylase Lipase Urine WBC (Auto) Vancomycin Trough Crossmatch 01/12/18 01/12/18 01/12/18 09:31 13:23 17:35 WBC RBC Hgb Hct MCV MCH MCHC RDW Plt Count Lymph % (Auto) Eos % (Auto) Luce # Eos # Baso # Seg Neutrophils % Seg Neuts % (Manual) Lymphocytes % (Manual) Monocytes % (Manual) Eosinophils % (Manual) Nucleated RBC % Seg Neutrophils # Seg Neutrophils # Man Lymphocytes # (Manual) Monocytes # (Manual) Eosinophils # (Manual) APTT POC ABG pH ABG pH POC ABG pCO2 POC ABG pO2 ABG pO2 ABG HCO3 ABG O2 Saturation ABG Base Excess ABG Hemoglobin VBG pH Oxyhemoglobin Sodium Potassium Chloride Carbon Dioxide BUN Creatinine Glucose POC Glucose 142 H 138 H 172 H Lactic Acid Calcium Phosphorus Total Bilirubin AST ALT C-Reactive Protein Total Protein Albumin Triglycerides Amylase Lipase Urine WBC (Auto) Vancomycin Trough Crossmatch 01/12/18 01/13/18 01/13/18 22:03 01:56 05:00 WBC RBC 3.50 L Hgb Hct 34.1 L MCV 98 H MCH 34 H MCHC 35 H RDW Plt Count Lymph % (Auto) Eos % (Auto) Luce # Eos # Baso # Seg Neutrophils % Seg Neuts % (Manual) Lymphocytes % (Manual) Monocytes % (Manual) Eosinophils % (Manual) Nucleated RBC % Seg Neutrophils # Seg Neutrophils # Man Lymphocytes # (Manual) Monocytes # (Manual) Eosinophils # (Manual) APTT POC ABG pH ABG pH POC ABG pCO2 POC ABG pO2 ABG pO2 ABG HCO3 ABG O2 Saturation ABG Base Excess ABG Hemoglobin VBG pH Oxyhemoglobin Sodium Potassium Chloride Carbon Dioxide BUN Creatinine Glucose POC Glucose 166 H 129 H Lactic Acid Calcium Phosphorus Total Bilirubin AST ALT C-Reactive Protein Total Protein Albumin Triglycerides Amylase Lipase Urine WBC (Auto) Vancomycin Trough Crossmatch 01/13/18 01/13/18 01/13/18 05:00 05:06 09:44 WBC RBC Hgb Hct MCV MCH MCHC RDW Plt Count Lymph % (Auto) Eos % (Auto) Luce # Eos # Baso # Seg Neutrophils % Seg Neuts % (Manual) Lymphocytes % (Manual) Monocytes % (Manual) Eosinophils % (Manual) Nucleated RBC % Seg Neutrophils # Seg Neutrophils # Man Lymphocytes # (Manual) Monocytes # (Manual) Eosinophils # (Manual) APTT POC ABG pH ABG pH POC ABG pCO2 POC ABG pO2 ABG pO2 ABG HCO3 ABG O2 Saturation ABG Base Excess ABG Hemoglobin VBG pH Oxyhemoglobin Sodium 136 L Potassium Chloride 95.5 L Carbon Dioxide BUN Creatinine 0.4 L Glucose 165 H POC Glucose 188 H 132 H Lactic Acid Calcium Phosphorus Total Bilirubin AST ALT C-Reactive Protein Total Protein Albumin Triglycerides Amylase Lipase Urine WBC (Auto) Vancomycin Trough Crossmatch 01/13/18 01/13/18 01/13/18 13:53 18:06 21:26 WBC RBC Hgb Hct MCV MCH MCHC RDW Plt Count Lymph % (Auto) Eos % (Auto) Luce # Eos # Baso # Seg Neutrophils % Seg Neuts % (Manual) Lymphocytes % (Manual) Monocytes % (Manual) Eosinophils % (Manual) Nucleated RBC % Seg Neutrophils # Seg Neutrophils # Man Lymphocytes # (Manual) Monocytes # (Manual) Eosinophils # (Manual) APTT POC ABG pH ABG pH POC ABG pCO2 POC ABG pO2 ABG pO2 ABG HCO3 ABG O2 Saturation ABG Base Excess ABG Hemoglobin VBG pH Oxyhemoglobin Sodium Potassium Chloride Carbon Dioxide BUN Creatinine Glucose POC Glucose 137 H 142 H 129 H Lactic Acid Calcium Phosphorus Total Bilirubin AST ALT C-Reactive Protein Total Protein Albumin Triglycerides Amylase Lipase Urine WBC (Auto) Vancomycin Trough Crossmatch 01/14/18 01/14/18 01/14/18 04:30 04:30 05:31 WBC 16.5 H RBC 3.55 L Hgb 11.7 L Hct 35.1 L MCV 99 H MCH 33 H MCHC RDW 15.4 H Plt Count Lymph % (Auto) Eos % (Auto) Luce # Eos # Baso # Seg Neutrophils % Seg Neuts % (Manual) Lymphocytes % (Manual) Monocytes % (Manual) Eosinophils % (Manual) Nucleated RBC % Seg Neutrophils # Seg Neutrophils # Man Lymphocytes # (Manual) Monocytes # (Manual) Eosinophils # (Manual) APTT POC ABG pH ABG pH POC ABG pCO2 POC ABG pO2 ABG pO2 ABG HCO3 ABG O2 Saturation ABG Base Excess ABG Hemoglobin VBG pH Oxyhemoglobin Sodium Potassium Chloride 93.8 L Carbon Dioxide BUN Creatinine 0.5 L Glucose POC Glucose 119 H Lactic Acid Calcium Phosphorus Total Bilirubin AST ALT C-Reactive Protein Total Protein Albumin Triglycerides Amylase Lipase Urine WBC (Auto) Vancomycin Trough Crossmatch 01/14/18 10:08 WBC RBC Hgb Hct MCV MCH MCHC RDW Plt Count Lymph % (Auto) Eos % (Auto) Luce # Eos # Baso # Seg Neutrophils % Seg Neuts % (Manual) Lymphocytes % (Manual) Monocytes % (Manual) Eosinophils % (Manual) Nucleated RBC % Seg Neutrophils # Seg Neutrophils # Man Lymphocytes # (Manual) Monocytes # (Manual) Eosinophils # (Manual) APTT POC ABG pH ABG pH POC ABG pCO2 POC ABG pO2 ABG pO2 ABG HCO3 ABG O2 Saturation ABG Base Excess ABG Hemoglobin VBG pH Oxyhemoglobin Sodium Potassium Chloride Carbon Dioxide BUN Creatinine Glucose POC Glucose 119 H Lactic Acid Calcium Phosphorus Total Bilirubin AST ALT C-Reactive Protein Total Protein Albumin Triglycerides Amylase Lipase Urine WBC (Auto) Vancomycin Trough Crossmatch Chest x-ray: report reviewed, image reviewed
[2018-01-15] MEDS: HumaLOG SUB-Q SCH ×6 (02:25→22:23)
[2018-01-15] MEDS: DUONEB *Not for PRN Use IH SCH ×3 (08:00→20:31)
[2018-01-15 08:32] LABS: Basophils # (Auto) 0.1 K/mm3 (0.0-0.1); Basophils % (Auto) 0.5 % (0.0-1.8); Eosinophils # (Auto) 0.3 K/mm3 (0.0-0.4); Eosinophils % (Auto) 2.1 % (0.0-4.3); Hematocrit 33.6 % (35.5-45.6); Hemoglobin 11.1 gm/dl (11.8-15.2); Lymphocytes # (Auto) 2.1 K/mm3 (1.2-5.4); Lymphocytes % (Auto) 16.8 % (13.4-35.0); Mean Corpuscular HGB Conc 33 % (32-34); Mean Corpuscular Hemoglobin 33 pg (28-32); Mean Corpuscular Volume 99 fl (84-94); Monocytes % (Auto) 7.8 % (0.0-7.3); Platelet Count 359 K/mm3 (140-440); Red Blood Count 3.41 M/mm3 (3.65-5.03); Red Cell Distribution Width 14.7 % (13.2-15.2)
[2018-01-15 08:47] LABS: BUN/Creatinine Ratio 38; Blood Urea Nitrogen 15 mg/dL (9-20); Calcium 9.8 mg/dL (8.4-10.2); Hemolysis Index 0
[2018-01-15] MEDS: SODIUM CHLORIDE FLUSH SYRINGE 10 ML IV SCH ×2 (10:00→23:14)
[2018-01-15] MEDS: LIBRIUM PO SCH ×3 (10:13→23:13)
[2018-01-15] MEDS: VITAMIN B-1 PO SCH (10:13)
[2018-01-15] MEDS: PEPCID PO SCH ×2 (10:13→23:13)
[2018-01-15] MEDS: LOPRESSOR PO SCH ×2 (10:13→23:13)
[2018-01-15] MEDS: FOLVITE FEEDTUBE SCH (10:13)
[2018-01-15] MEDS: POTASSIUM CHLORIDE PO SCH (10:13)
--- NOTE | 2018-01-15 10:46 | Progress Note ---
Assessment and Plan Imp: 1. Haemophilus influenza pneumonia and bacteremia 2. Severe sepsis 3. ARDS 4. Acute respiratory failure, hypoxia 5. Hypernatremia Rec: 1. DVT and GI PPx, TFs 2. Finished ABX 3. RSBI, RR, TV, mentation good; CXR better; can pull > 1 liter TV; proceed w/ extubation today 4. Complex patient/decision-making Plan of care reviewed w/ patient/, they understand/agree Subjective Date of service: 01/15/18 Principal diagnosis: ARDS,Respiratory failure,pneumonia Interval history: No events. On PSV 10/5 and tolerating x > 24 hours. Awake without complaints. Active Medications Acetaminophen (Tylenol) 650 mg PO Q6H PRN PRN Reason: Pain, Mild (1-3),temp 100.5or> Last Admin: 01/13/18 20:50 Dose: 650 mg Acetaminophen (Tylenol) 650 mg NC Q4H PRN PRN Reason: Pain, Mild (1-3) Albuterol (Proventil) 2.5 mg IH Q4HRT PRN PRN Reason: Shortness Of Breath Last Admin: 12/13/17 03:01 Dose: 2.5 mg Albuterol/Ipratropium (Duoneb *Not For Prn Use*) 1 ampul IH TIDRT [facility] Last Admin: 01/15/18 08:00 Dose: 1 ampul Lipase/Protease/Amylase (Pancreaze Dr 10,500 Unit) 1 each FEEDTUBE PRN PRN PRN Reason: For Clogged Feeding Tube Chlordiazepoxide HCl (Librium) 50 mg PO Q8H [facility] Last Admin: 01/15/18 10:13 Dose: 50 mg Dextrose (D50w (25gm) Syringe) 50 ml IV PRN PRN PRN Reason: Hypoglycemia Enoxaparin Sodium (Lovenox) 40 mg SUB-Q QDAY@2200 [facility] Last Admin: 01/14/18 23:31 Dose: 40 mg Famotidine (Pepcid) 20 mg PO BID [facility] Last Admin: 01/15/18 10:13 Dose: 20 mg Fentanyl (Sublimaze) 50 mcg IV Q2H PRN PRN Reason: agitation Last Admin: 01/14/18 16:34 Dose: 50 mcg Folic Acid (Folvite) 1 mg FEEDTUBE QDAY [facility] Last Admin: 01/15/18 10:13 Dose: 1 mg Hydralazine HCl (Apresoline) 10 mg IV Q4HR PRN PRN Reason: SBP>170 Last Admin: 12/27/17 10:10 Dose: 10 mg Hydrophilic Ointment (Vaseline Lip Therapy) 1 applic TP DIRECT PRN PRN Reason: DRY LIPS Last Admin: 12/31/17 02:08 Dose: 1 applic Dexmedetomidine HCl 400 mcg/ (Sodium Chloride) 104 mls @ 5.25 mls/hr IV TITRATE [facility]; Protocol Last Admin: 01/03/18 15:33 Dose: 0.5 mcg/kg/hr, 13.13 mls/hr Insulin Glargine (Lantus) 26 units SUB-Q DAILY [facility] Last Admin: 01/14/18 10:16 Dose: 26 units Insulin Human Lispro (Humalog) 0 unit SUB-Q Q4H [facility]; Protocol Last Admin: 01/15/18 07:02 Dose: Not Given Labetalol HCl (Normodyne) 20 mg IV Q6H PRN PRN Reason: Blood Pressure Metoprolol Tartrate (Lopressor) 50 mg PO BID [facility] Last Admin: 01/15/18 10:13 Dose: 50 mg Multi-Ingred Cream/Lotion/Oil/Oint (Artificial Tears Ophth Oint) 1 applic OU Q4HR PRN PRN Reason: Dry Eye(s) Ondansetron HCl (Zofran) 4 mg IV Q8H PRN PRN Reason: Nausea And Vomiting Last Admin: 01/01/18 04:20 Dose: 4 mg Potassium Chloride (Potassium Chloride) 20 meq PO QDAY [facility] Last Admin: 01/15/18 10:13 Dose: 20 meq Senna/Docusate Sodium (Senokot S) 2 tab PO BID PRN PRN Reason: Laxative Effect Simple Syrup (Simple Syrup) 15 ml FEEDTUBE PRN PRN PRN Reason: Hypoglycemia Last Admin: 12/31/17 02:07 Dose: 15 ml Simple Syrup (Simple Syrup) 30 ml FEEDTUBE PRN PRN PRN Reason: Hypoglycemia Sodium Bicarbonate (Sodium Bicarbonate) 325 mg FEEDTUBE PRN PRN PRN Reason: For Clogged Feeding Tube Sodium Chloride (Sodium Chloride Flush Syringe 10 Ml) 10 ml IV BID [facility] Last Admin: 01/14/18 23:31 Dose: 10 ml Sodium Chloride (Sodium Chloride Flush Syringe 10 Ml) 10 ml IV PRN PRN PRN Reason: LINE FLUSH Last Admin: 01/14/18 04:20 Dose: 10 ml Thiamine HCl (Vitamin B-1) 100 mg PO QDAY [facility] Last Admin: 01/15/18 10:13 Dose: 100 mg Active Medications Acetaminophen (Tylenol) 650 mg PO Q6H PRN PRN Reason: Pain, Mild (1-3),temp 100.5or> Last Admin: 12/19/17 03:15 Dose: 650 mg Albuterol (Proventil) 2.5 mg IH Q4HRT PRN PRN Reason: Shortness Of Breath Last Admin: 12/13/17 03:01 Dose: 2.5 mg Albuterol/Ipratropium (Duoneb *Not For Prn Use*) 1 ampul IH Q6HRT [facility] Last Admin: 12/19/17 08:30 Dose: 1 ampul Lipase/Protease/Amylase (Pancreaze Dr 10,500 Unit) 1 each FEEDTUBE PRN PRN PRN Reason: For Clogged Feeding Tube Dextrose (D50w (25gm) Syringe) 50 ml IV PRN PRN PRN Reason: Hypoglycemia Famotidine (Pepcid) 20 mg PO BID [facility] Last Admin: 12/19/17 09:13 Dose: 20 mg Fentanyl (Sublimaze) 50 mcg IV Q2H PRN PRN Reason: PAIN/AGITATION Last Admin: 12/18/17 15:02 Dose: 50 mcg Furosemide (Lasix) 20 mg IV ONCE ONE Stop: 12/19/17 14:00 Hydromorphone HCl (Dilaudid) 2 mg PO Q6HR [facility] Last Admin: 12/19/17 12:25 Dose: 2 mg Hydrophilic Ointment (Vaseline Lip Therapy) 1 applic TP Q2HR PRN PRN Reason: Dry Lips Hydrophilic Ointment (Vaseline Lip Therapy) 1 applic TP DIRECT PRN PRN Reason: DRY LIPS Levofloxacin/Dextrose (Levaquin 750mg/150ml) 750 mg in 150 mls @ 100 mls/hr IV Q24HR [facility]; Protocol Last Admin: 12/19/17 09:02 Dose: 100 mls/hr Fentanyl Citrate (Fentanyl Drip Premix) 2,000 mcg in 100 mls @ 5.058 mls/hr IV TITR [facility]; Protocol Last Admin: 12/19/17 08:51 Dose: 4 mcg/kg/hr, 20.23 mls/hr Midazolam HCl 100 mg/ Sodium (Chloride) 100 mls @ 2 mls/hr IV TITR [facility]; Protocol Last Titration: 12/19/17 10:03 Dose: 3 mg/hr, 3 mls/hr Clindamycin HCl (Cleocin 600 Mg/50 Ml) 600 mg in 50 mls @ 100 mls/hr IV Q8HR [facility] Stop: 12/20/17 13:59 Last Admin: 12/19/17 06:00 Dose: 100 mls/hr Propofol (Diprivan 10 Mg/Ml) 1,000 mg in 100 mls @ 3.264 mls/hr IV TITR [facility]; Protocol Last Titration: 12/19/17 13:51 Dose: 40 mcg/kg/min, 26.112 mls/hr Vancomycin HCl 1,500 mg/ (Sodium Chloride) 515 mls @ 333.333 mls/hr IV Q12H [facility] Last Admin: 12/19/17 04:43 Dose: 333.333 mls/hr Insulin Glargine (Lantus) 20 units SUB-Q DAILY [facility] Insulin Human Lispro (Humalog) 0 unit SUB-Q Q4H [facility]; Protocol Last Admin: 12/19/17 11:44 Dose: 10 unit Methylprednisolone Sodium Succinate (Solu-Medrol) 80 mg IV Q6H [facility] Last Admin: 12/19/17 08:47 Dose: 80 mg Morphine Sulfate (Morphine) 2 mg IV Q4H PRN PRN Reason: Pain, Moderate (4-6) Last Admin: 12/18/17 02:30 Dose: 2 mg Multi-Ingred Cream/Lotion/Oil/Oint (Artificial Tears Ophth Oint) 1 applic OU Q4HR PRN PRN Reason: Dry Eye(s) Ondansetron HCl (Zofran) 4 mg IV Q8H PRN PRN Reason: Nausea And Vomiting Senna/Docusate Sodium (Senokot S) 1 tab PO BID [facility] Last Admin: 12/19/17 09:09 Dose: 1 tab Simple Syrup (Simple Syrup) 15 ml FEEDTUBE PRN PRN PRN Reason: Hypoglycemia Simple Syrup (Simple Syrup) 30 ml FEEDTUBE PRN PRN PRN Reason: Hypoglycemia Sodium Bicarbonate (Sodium Bicarbonate) 325 mg FEEDTUBE PRN PRN PRN Reason: For Clogged Feeding Tube Sodium Chloride (Sodium Chloride Flush Syringe 10 Ml) 10 ml IV BID [facility] Last Admin: 12/19/17 11:49 Dose: 10 ml Sodium Chloride (Sodium Chloride Flush Syringe 10 Ml) 10 ml IV PRN PRN PRN Reason: LINE FLUSH Thiamine HCl (Vitamin B-1) 100 mg PO QDAY [facility] Last Admin: 12/19/17 09:09 Dose: 100 mg Vancomycin HCl (Vancomycin Pharmacy To Dose) 1 each IV PKCONSULT [facility]; Protocol Objective Vital Signs - 12hr 01/14/18 01/14/18 01/14/18 22:48 23:00 23:20 Temperature 98.7 F Pulse Rate 93 H 92 H Pulse Rate [ Anterior Bilateral Throughout] Respiratory 23 24 Rate Respiratory Rate [Anterior Bilateral Throughout] Blood Pressure 116/66 119/65 O2 Sat by Pulse 98 97 Oximetry 01/14/18 01/15/18 01/15/18 23:42 00:00 01:00 Temperature Pulse Rate 87 84 78 Pulse Rate [ Anterior Bilateral Throughout] Respiratory 21 18 Rate Respiratory Rate [Anterior Bilateral Throughout] Blood Pressure 119/65 113/67 127/85 O2 Sat by Pulse 99 97 Oximetry 01/15/18 01/15/18 01/15/18 02:00 03:00 03:46 Temperature 98.8 F Pulse Rate 81 87 Pulse Rate [ Anterior Bilateral Throughout] Respiratory 22 15 Rate Respiratory Rate [Anterior Bilateral Throughout] Blood Pressure 113/67 118/63 O2 Sat by Pulse 96 97 Oximetry 01/15/18 01/15/18 01/15/18 04:00 05:00 06:00 Temperature Pulse Rate 85 87 89 Pulse Rate [ Anterior Bilateral Throughout] Respiratory 21 20 20 Rate Respiratory Rate [Anterior Bilateral Throughout] Blood Pressure 128/76 132/84 130/81 O2 Sat by Pulse 100 100 98 Oximetry 01/15/18 01/15/18 01/15/18 07:00 08:00 10:13 Temperature 98 F Pulse Rate 87 91 H 96 H Pulse Rate [ 90 Anterior Bilateral Throughout] Respiratory 16 20 Rate Respiratory 22 Rate [Anterior Bilateral Throughout] Blood Pressure 139/82 135/87 118/79 O2 Sat by Pulse 99 100 Oximetry Constitutional: no acute distress, alert Eyes: non-icteric ENT: oropharynx moist Neck: supple Effort: normal Ascultation: Bilateral: other (coarse BS bilaterally) Cardiovascular: regular rate and rhythm (no mrg) Gastrointestinal: normoactive bowel sounds, soft, non-tender, non-distended Integumentary: normal Extremities: no cyanosis, no edema, pink and warm, no ischemia or petechiae Neurologic: normal mental status, non-focal exam, pupils equal and round, CN II- XII normal Psychiatric: mood appropriate, affect normal CBC and BMP: 01/15/18 08:02 01/15/18 08:02 ABG, PT/INR, D-dimer: ABG POC ABG pH 7.503 (7.35-7.45) H 12/25/17 03:38 ABG pH 7.441 pH Units (7.350-7.450) 01/06/18 03:14 POC ABG pCO2 35.8 (35-45) 12/25/17 03:38 ABG pCO2 43.2 mm Hg 01/06/18 03:14 POC ABG pO2 66 (80-105) L 12/25/17 03:38 ABG pO2 84.9 mm Hg (80.0-90.0) 01/06/18 03:14 POC ABG HCO3 28.1 12/25/17 03:38 POC ABG Total CO2 29 12/25/17 03:38 POC ABG O2 Sat 95 12/25/17 03:38 ABG O2 Saturation 97.0 % (95.0-99.0) 01/06/18 03:14 PT/INR, D-dimer PT 14.9 Sec. (12.2-14.9) 12/15/17 04:05 INR 1.11 (0.87-1.13) 12/15/17 04:05 Abnormal lab findings: Abnormal Labs 12/12/17 12/12/17 12/12/17 18:57 19:02 19:02 WBC RBC Hgb Hct MCV 96 H MCH 34 H MCHC 35 H RDW Plt Count 46 L Lymph % (Auto) Adams % (Auto) Eos % (Auto) Adams # Eos # Baso # Seg Neutrophils % Seg Neuts % (Manual) 77.0 H Lymphocytes % (Manual) 13.0 L Monocytes % (Manual) Eosinophils % (Manual) Nucleated RBC % Seg Neutrophils # Seg Neutrophils # Man Lymphocytes # (Manual) 0.9 L Monocytes # (Manual) Eosinophils # (Manual) APTT POC ABG pH ABG pH POC ABG pCO2 POC ABG pO2 ABG pO2 ABG HCO3 ABG O2 Saturation ABG Base Excess ABG Hemoglobin VBG pH Oxyhemoglobin Sodium Potassium Chloride Carbon Dioxide BUN Creatinine Glucose POC Glucose 321 H Lactic Acid 4.00 H* Calcium Phosphorus Total Bilirubin AST ALT C-Reactive Protein Total Protein Albumin Triglycerides Amylase Lipase Urine WBC (Auto) Vancomycin Trough Crossmatch 12/12/17 12/12/17 12/12/17 19:02 19:18 20:55 WBC RBC Hgb Hct MCV MCH MCHC RDW Plt Count Lymph % (Auto) Adams % (Auto) Eos % (Auto) Adams # Eos # Baso # Seg Neutrophils % Seg Neuts % (Manual) Lymphocytes % (Manual) Monocytes % (Manual) Eosinophils % (Manual) Nucleated RBC % Seg Neutrophils # Seg Neutrophils # Man Lymphocytes # (Manual) Monocytes # (Manual) Eosinophils # (Manual) APTT POC ABG pH ABG pH POC ABG pCO2 POC ABG pO2 ABG pO2 ABG HCO3 ABG O2 Saturation ABG Base Excess ABG Hemoglobin VBG pH 7.472 H Oxyhemoglobin Sodium 124 L Potassium Chloride 80.0 L Carbon Dioxide 20 L BUN Creatinine Glucose 382 H POC Glucose 283 H Lactic Acid Calcium 8.1 L Phosphorus Total Bilirubin 4.60 H AST 93 H ALT 112 H C-Reactive Protein Total Protein Albumin 2.5 L Triglycerides Amylase Lipase Urine WBC (Auto) Vancomycin Trough Crossmatch 12/12/17 12/13/17 12/13/17 21:41 00:45 01:29 WBC RBC Hgb Hct MCV MCH MCHC RDW Plt Count Lymph % (Auto) Adams % (Auto) Eos % (Auto) Adams # Eos # Baso # Seg Neutrophils % Seg Neuts % (Manual) Lymphocytes % (Manual) Monocytes % (Manual) Eosinophils % (Manual) Nucleated RBC % Seg Neutrophils # Seg Neutrophils # Man Lymphocytes # (Manual) Monocytes # (Manual) Eosinophils # (Manual) APTT POC ABG pH ABG pH POC ABG pCO2 POC ABG pO2 ABG pO2 ABG HCO3 ABG O2 Saturation ABG Base Excess ABG Hemoglobin VBG pH Oxyhemoglobin Sodium Potassium Chloride Carbon Dioxide BUN Creatinine Glucose POC Glucose Lactic Acid 4.20 H* 2.70 H* 3.30 H* Calcium Phosphorus Total Bilirubin AST ALT C-Reactive Protein Total Protein Albumin Triglycerides Amylase Lipase Urine WBC (Auto) Vancomycin Trough Crossmatch 12/13/17 12/13/17 12/13/17 02:19 03:44 05:58 WBC RBC Hgb Hct MCV 97 H MCH 34 H MCHC 35 H RDW Plt Count 41 L Lymph % (Auto) Adams % (Auto) Eos % (Auto) Adams # Eos # Baso # Seg Neutrophils % Seg Neuts % (Manual) Lymphocytes % (Manual) 8.0 L Monocytes % (Manual) 8.0 H Eosinophils % (Manual) Nucleated RBC % Seg Neutrophils # Seg Neutrophils # Man Lymphocytes # (Manual) 0.6 L Monocytes # (Manual) Eosinophils # (Manual) APTT POC ABG pH 7.334 L ABG pH POC ABG pCO2 POC ABG pO2 43 L ABG pO2 ABG HCO3 ABG O2 Saturation ABG Base Excess ABG Hemoglobin VBG pH Oxyhemoglobin Sodium Potassium Chloride Carbon Dioxide BUN Creatinine Glucose POC Glucose Lactic Acid 2.60 H* Calcium Phosphorus Total Bilirubin AST ALT C-Reactive Protein Total Protein Albumin Triglycerides Amylase Lipase Urine WBC (Auto) Vancomycin Trough Crossmatch 12/13/17 12/13/17 12/13/17 05:58 05:58 05:58 WBC RBC Hgb Hct MCV MCH MCHC RDW Plt Count Lymph % (Auto) Adams % (Auto) Eos % (Auto) Adams # Eos # Baso # Seg Neutrophils % Seg Neuts % (Manual) Lymphocytes % (Manual) Monocytes % (Manual) Eosinophils % (Manual) Nucleated RBC % Seg Neutrophils # Seg Neutrophils # Man Lymphocytes # (Manual) Monocytes # (Manual) Eosinophils # (Manual) APTT POC ABG pH ABG pH POC ABG pCO2 POC ABG pO2 ABG pO2 ABG HCO3 ABG O2 Saturation ABG Base Excess ABG Hemoglobin VBG pH Oxyhemoglobin Sodium 132 L D Potassium Chloride 90.0 L Carbon Dioxide 20 L BUN Creatinine Glucose 346 H POC Glucose 298 H Lactic Acid 4.50 H* Calcium 8.2 L Phosphorus Total Bilirubin AST ALT C-Reactive Protein Total Protein Albumin Triglycerides Amylase Lipase Urine WBC (Auto) Vancomycin Trough Crossmatch 12/13/17 12/13/17 12/13/17 06:27 09:42 11:47 WBC RBC Hgb Hct MCV MCH MCHC RDW Plt Count Lymph % (Auto) Adams % (Auto) Eos % (Auto) Adams # Eos # Baso # Seg Neutrophils % Seg Neuts % (Manual) Lymphocytes % (Manual) Monocytes % (Manual) Eosinophils % (Manual) Nucleated RBC % Seg Neutrophils # Seg Neutrophils # Man Lymphocytes # (Manual) Monocytes # (Manual) Eosinophils # (Manual) APTT POC ABG pH 7.267 L 7.298 L ABG pH POC ABG pCO2 50.4 H 51.3 H POC ABG pO2 47 L 43 L ABG pO2 ABG HCO3 ABG O2 Saturation ABG Base Excess ABG Hemoglobin VBG pH Oxyhemoglobin Sodium Potassium Chloride Carbon Dioxide BUN Creatinine Glucose POC Glucose 376 H Lactic Acid Calcium Phosphorus Total Bilirubin AST ALT C-Reactive Protein Total Protein Albumin Triglycerides Amylase Lipase Urine WBC (Auto) Vancomycin Trough Crossmatch 12/13/17 12/13/17 12/13/17 12:03 13:47 13:47 WBC RBC Hgb Hct MCV MCH MCHC RDW Plt Count Lymph % (Auto) Adams % (Auto) Eos % (Auto) Adams # Eos # Baso # Seg Neutrophils % Seg Neuts % (Manual) Lymphocytes % (Manual) Monocytes % (Manual) Eosinophils % (Manual) Nucleated RBC % Seg Neutrophils # Seg Neutrophils # Man Lymphocytes # (Manual) Monocytes # (Manual) Eosinophils # (Manual) APTT POC ABG pH 7.264 L ABG pH POC ABG pCO2 54.9 H POC ABG pO2 55 L ABG pO2 ABG HCO3 ABG O2 Saturation ABG Base Excess ABG Hemoglobin VBG pH Oxyhemoglobin Sodium Potassium Chloride Carbon Dioxide BUN Creatinine Glucose POC Glucose Lactic Acid 2.80 H* Calcium Phosphorus Total Bilirubin AST ALT C-Reactive Protein Total Protein Albumin Triglycerides Amylase 20 L Lipase 9 L Urine WBC (Auto) Vancomycin Trough Crossmatch 12/13/17 12/13/17 12/13/17 15:36 17:39 21:47 WBC RBC Hgb Hct MCV MCH MCHC RDW Plt Count Lymph % (Auto) Adams % (Auto) Eos % (Auto) Adams # Eos # Baso # Seg Neutrophils % Seg Neuts % (Manual) Lymphocytes % (Manual) Monocytes % (Manual) Eosinophils % (Manual) Nucleated RBC % Seg Neutrophils # Seg Neutrophils # Man Lymphocytes # (Manual) Monocytes # (Manual) Eosinophils # (Manual) APTT POC ABG pH 7.229 L 7.225 L ABG pH POC ABG pCO2 60.9 H 66.3 H POC ABG pO2 42 L 41 L ABG pO2 ABG HCO3 ABG O2 Saturation ABG Base Excess ABG Hemoglobin VBG pH Oxyhemoglobin Sodium Potassium Chloride Carbon Dioxide BUN Creatinine Glucose POC Glucose 289 H Lactic Acid Calcium Phosphorus Total Bilirubin AST ALT C-Reactive Protein Total Protein Albumin Triglycerides Amylase Lipase Urine WBC (Auto) Vancomycin Trough Crossmatch 12/13/17 12/14/17 12/14/17 22:19 02:03 05:16 WBC RBC Hgb Hct MCV MCH MCHC RDW Plt Count Lymph % (Auto) Adams % (Auto) Eos % (Auto) Adams # Eos # Baso # Seg Neutrophils % Seg Neuts % (Manual) Lymphocytes % (Manual) Monocytes % (Manual) Eosinophils % (Manual) Nucleated RBC % Seg Neutrophils # Seg Neutrophils # Man Lymphocytes # (Manual) Monocytes # (Manual) Eosinophils # (Manual) APTT POC ABG pH 7.247 L ABG pH POC ABG pCO2 61.2 H POC ABG pO2 53 L ABG pO2 ABG HCO3 ABG O2 Saturation ABG Base Excess ABG Hemoglobin VBG pH Oxyhemoglobin Sodium Potassium Chloride Carbon Dioxide BUN Creatinine Glucose POC Glucose 274 H 295 H Lactic Acid Calcium Phosphorus Total Bilirubin AST ALT C-Reactive Protein Total Protein Albumin Triglycerides Amylase Lipase Urine WBC (Auto) Vancomycin Trough Crossmatch 12/14/17 12/14/17 12/14/17 05:32 12:04 16:22 WBC RBC Hgb Hct MCV MCH MCHC RDW Plt Count Lymph % (Auto) Adams % (Auto) Eos % (Auto) Adams # Eos # Baso # Seg Neutrophils % Seg Neuts % (Manual) Lymphocytes % (Manual) Monocytes % (Manual) Eosinophils % (Manual) Nucleated RBC % Seg Neutrophils # Seg Neutrophils # Man Lymphocytes # (Manual) Monocytes # (Manual) Eosinophils # (Manual) APTT POC ABG pH ABG pH POC ABG pCO2 POC ABG pO2 ABG pO2 ABG HCO3 ABG O2 Saturation ABG Base Excess ABG Hemoglobin VBG pH Oxyhemoglobin Sodium Potassium Chloride Carbon Dioxide BUN Creatinine Glucose POC Glucose 230 H 241 H 231 H Lactic Acid Calcium Phosphorus Total Bilirubin AST ALT C-Reactive Protein Total Protein Albumin Triglycerides Amylase Lipase Urine WBC (Auto) Vancomycin Trough Crossmatch 12/14/17 12/15/17 12/15/17 21:29 02:29 03:25 WBC RBC Hgb Hct MCV MCH MCHC RDW Plt Count Lymph % (Auto) Adams % (Auto) Eos % (Auto) Adams # Eos # Baso # Seg Neutrophils % Seg Neuts % (Manual) Lymphocytes % (Manual) Monocytes % (Manual) Eosinophils % (Manual) Nucleated RBC % Seg Neutrophils # Seg Neutrophils # Man Lymphocytes # (Manual) Monocytes # (Manual) Eosinophils # (Manual) APTT POC ABG pH 7.330 L ABG pH POC ABG pCO2 55.3 H POC ABG pO2 59 L ABG pO2 ABG HCO3 ABG O2 Saturation ABG Base Excess ABG Hemoglobin VBG pH Oxyhemoglobin Sodium Potassium Chloride Carbon Dioxide BUN Creatinine Glucose POC Glucose 258 H 246 H Lactic Acid Calcium Phosphorus Total Bilirubin AST ALT C-Reactive Protein Total Protein Albumin Triglycerides Amylase Lipase Urine WBC (Auto) Vancomycin Trough Crossmatch 12/15/17 12/15/17 12/15/17 04:05 04:05 04:05 WBC 15.0 H RBC 3.40 L Hgb 11.3 L D Hct 33.8 L D MCV 100 H MCH 33 H MCHC RDW Plt Count 48 L Lymph % (Auto) Adams % (Auto) Eos % (Auto) Adams # Eos # Baso # Seg Neutrophils % Seg Neuts % (Manual) Lymphocytes % (Manual) 3.0 L Monocytes % (Manual) Eosinophils % (Manual) Nucleated RBC % 2.0 H Seg Neutrophils # Seg Neutrophils # Man Lymphocytes # (Manual) 0.5 L Monocytes # (Manual) 0.9 H Eosinophils # (Manual) APTT 20.9 L POC ABG pH ABG pH POC ABG pCO2 POC ABG pO2 ABG pO2 ABG HCO3 ABG O2 Saturation ABG Base Excess ABG Hemoglobin VBG pH Oxyhemoglobin Sodium Potassium Chloride Carbon Dioxide BUN 27 H Creatinine Glucose 258 H POC Glucose Lactic Acid Calcium 8.1 L Phosphorus Total Bilirubin AST ALT C-Reactive Protein Total Protein Albumin Triglycerides Amylase Lipase Urine WBC (Auto) Vancomycin Trough Crossmatch 12/15/17 12/15/17 12/15/17 05:32 11:17 14:59 WBC RBC Hgb Hct MCV MCH MCHC RDW Plt Count Lymph % (Auto) Adams % (Auto) Eos % (Auto) Adams # Eos # Baso # Seg Neutrophils % Seg Neuts % (Manual) Lymphocytes % (Manual) Monocytes % (Manual) Eosinophils % (Manual) Nucleated RBC % Seg Neutrophils # Seg Neutrophils # Man Lymphocytes # (Manual) Monocytes # (Manual) Eosinophils # (Manual) APTT POC ABG pH ABG pH POC ABG pCO2 POC ABG pO2 ABG pO2 ABG HCO3 ABG O2 Saturation ABG Base Excess ABG Hemoglobin VBG pH Oxyhemoglobin Sodium Potassium Chloride Carbon Dioxide BUN Creatinine Glucose POC Glucose 247 H 268 H 233 H Lactic Acid Calcium Phosphorus Total Bilirubin AST ALT C-Reactive Protein Total Protein Albumin Triglycerides Amylase Lipase Urine WBC (Auto) Vancomycin Trough Crossmatch 12/15/17 12/15/17 12/15/17 17:00 18:59 21:37 WBC RBC Hgb Hct MCV MCH MCHC RDW Plt Count Lymph % (Auto) Adams % (Auto) Eos % (Auto) Adams # Eos # Baso # Seg Neutrophils % Seg Neuts % (Manual) Lymphocytes % (Manual) Monocytes % (Manual) Eosinophils % (Manual) Nucleated RBC % Seg Neutrophils # Seg Neutrophils # Man Lymphocytes # (Manual) Monocytes # (Manual) Eosinophils # (Manual) APTT POC ABG pH ABG pH POC ABG pCO2 POC ABG pO2 ABG pO2 ABG HCO3 ABG O2 Saturation ABG Base Excess ABG Hemoglobin VBG pH Oxyhemoglobin Sodium Potassium Chloride Carbon Dioxide BUN Creatinine Glucose POC Glucose 195 H 208 H Lactic Acid Calcium Phosphorus Total Bilirubin AST ALT C-Reactive Protein Total Protein Albumin Triglycerides Amylase Lipase Urine WBC (Auto) 38.0 H Vancomycin Trough Crossmatch 12/16/17 12/16/17 12/16/17 03:17 03:33 04:18 WBC 16.4 H RBC 3.50 L Hgb 11.3 L Hct 35.4 L MCV 101 H MCH MCHC RDW Plt Count 54 L Lymph % (Auto) Adams % (Auto) Eos % (Auto) Adams # Eos # Baso # Seg Neutrophils % Seg Neuts % (Manual) Lymphocytes % (Manual) Monocytes % (Manual) Eosinophils % (Manual) Nucleated RBC % Seg Neutrophils # Seg Neutrophils # Man Lymphocytes # (Manual) Monocytes # (Manual) Eosinophils # (Manual) APTT POC ABG pH ABG pH POC ABG pCO2 47.7 H POC ABG pO2 ABG pO2 ABG HCO3 ABG O2 Saturation ABG Base Excess ABG Hemoglobin VBG pH Oxyhemoglobin Sodium Potassium Chloride Carbon Dioxide BUN Creatinine Glucose POC Glucose 227 H Lactic Acid Calcium Phosphorus Total Bilirubin AST ALT C-Reactive Protein Total Protein Albumin Triglycerides Amylase Lipase Urine WBC (Auto) Vancomycin Trough Crossmatch 12/16/17 12/16/17 12/16/17 04:18 05:08 10:01 WBC RBC Hgb Hct MCV MCH MCHC RDW Plt Count Lymph % (Auto) Adams % (Auto) Eos % (Auto) Adams # Eos # Baso # Seg Neutrophils % Seg Neuts % (Manual) Lymphocytes % (Manual) Monocytes % (Manual) Eosinophils % (Manual) Nucleated RBC % Seg Neutrophils # Seg Neutrophils # Man Lymphocytes # (Manual) Monocytes # (Manual) Eosinophils # (Manual) APTT POC ABG pH ABG pH POC ABG pCO2 POC ABG pO2 ABG pO2 ABG HCO3 ABG O2 Saturation ABG Base Excess ABG Hemoglobin VBG pH Oxyhemoglobin Sodium 147 H Potassium Chloride 107.4 H Carbon Dioxide BUN 28 H Creatinine Glucose 240 H POC Glucose 227 H 190 H Lactic Acid Calcium 8.3 L Phosphorus Total Bilirubin AST ALT C-Reactive Protein Total Protein Albumin Triglycerides Amylase Lipase Urine WBC (Auto) Vancomycin Trough Crossmatch 12/16/17 12/16/17 12/16/17 14:15 17:51 21:14 WBC RBC Hgb Hct MCV MCH MCHC RDW Plt Count Lymph % (Auto) Adams % (Auto) Eos % (Auto) Adams # Eos # Baso # Seg Neutrophils % Seg Neuts % (Manual) Lymphocytes % (Manual) Monocytes % (Manual) Eosinophils % (Manual) Nucleated RBC % Seg Neutrophils # Seg Neutrophils # Man Lymphocytes # (Manual) Monocytes # (Manual) Eosinophils # (Manual) APTT POC ABG pH ABG pH POC ABG pCO2 POC ABG pO2 ABG pO2 ABG HCO3 ABG O2 Saturation ABG Base Excess ABG Hemoglobin VBG pH Oxyhemoglobin Sodium Potassium Chloride Carbon Dioxide BUN Creatinine Glucose POC Glucose 279 H 272 H 260 H Lactic Acid Calcium Phosphorus Total Bilirubin AST ALT C-Reactive Protein Total Protein Albumin Triglycerides Amylase Lipase Urine WBC (Auto) Vancomycin Trough Crossmatch 12/17/17 12/17/17 12/17/17 02:41 04:28 04:28 WBC 19.1 H RBC 3.50 L Hgb 11.4 L Hct 35.3 L MCV 101 H MCH 33 H MCHC RDW Plt Count 65 L Lymph % (Auto) Adams % (Auto) Eos % (Auto) Adams # Eos # Baso # Seg Neutrophils % Seg Neuts % (Manual) Lymphocytes % (Manual) Monocytes % (Manual) Eosinophils % (Manual) Nucleated RBC % Seg Neutrophils # Seg Neutrophils # Man Lymphocytes # (Manual) Monocytes # (Manual) Eosinophils # (Manual) APTT POC ABG pH ABG pH POC ABG pCO2 POC ABG pO2 ABG pO2 ABG HCO3 ABG O2 Saturation ABG Base Excess ABG Hemoglobin VBG pH Oxyhemoglobin Sodium 153 H Potassium Chloride 111.2 H Carbon Dioxide 31 H BUN 28 H Creatinine Glucose 248 H POC Glucose 300 H Lactic Acid Calcium Phosphorus Total Bilirubin AST ALT C-Reactive Protein Total Protein Albumin Triglycerides Amylase Lipase Urine WBC (Auto) Vancomycin Trough Crossmatch 12/17/17 12/17/17 12/17/17 05:15 05:38 10:16 WBC RBC Hgb Hct MCV MCH MCHC RDW Plt Count Lymph % (Auto) Adams % (Auto) Eos % (Auto) Adams # Eos # Baso # Seg Neutrophils % Seg Neuts % (Manual) Lymphocytes % (Manual) Monocytes % (Manual) Eosinophils % (Manual) Nucleated RBC % Seg Neutrophils # Seg Neutrophils # Man Lymphocytes # (Manual) Monocytes # (Manual) Eosinophils # (Manual) APTT POC ABG pH ABG pH POC ABG pCO2 50.3 H POC ABG pO2 120 H ABG pO2 ABG HCO3 ABG O2 Saturation ABG Base Excess ABG Hemoglobin VBG pH Oxyhemoglobin Sodium Potassium Chloride Carbon Dioxide BUN Creatinine Glucose POC Glucose 231 H 196 H Lactic Acid Calcium Phosphorus Total Bilirubin AST ALT C-Reactive Protein Total Protein Albumin Triglycerides Amylase Lipase Urine WBC (Auto) Vancomycin Trough Crossmatch 12/17/17 12/17/17 12/17/17 14:22 18:14 21:35 WBC RBC Hgb Hct MCV MCH MCHC RDW Plt Count Lymph % (Auto) [place] % (Auto) Eos % (Auto) Adams # Eos # Baso # Seg Neutrophils % Seg Neuts % (Manual) Lymphocytes % (Manual) Monocytes % (Manual) Eosinophils % (Manual) Nucleated RBC % Seg Neutrophils # Seg Neutrophils # Man Lymphocytes # (Manual) Monocytes # (Manual) Eosinophils # (Manual) APTT POC ABG pH ABG pH POC ABG pCO2 POC ABG pO2 ABG pO2 ABG HCO3 ABG O2 Saturation ABG Base Excess ABG Hemoglobin VBG pH Oxyhemoglobin Sodium Potassium Chloride Carbon Dioxide BUN Creatinine Glucose POC Glucose 234 H 215 H 159 H Lactic Acid Calcium Phosphorus Total Bilirubin AST ALT C-Reactive Protein Total Protein Albumin Triglycerides Amylase Lipase Urine WBC (Auto) Vancomycin Trough Crossmatch 12/18/17 12/18/17 12/18/17 00:53 02:58 06:03 WBC RBC Hgb Hct MCV MCH MCHC RDW Plt Count Lymph % (Auto) [place] % (Auto) Eos % (Auto) [place] # Eos # Baso # Seg Neutrophils % Seg Neuts % (Manual) Lymphocytes % (Manual) Monocytes % (Manual) Eosinophils % (Manual) Nucleated RBC % Seg Neutrophils # Seg Neutrophils # Man Lymphocytes # (Manual) Monocytes # (Manual) Eosinophils # (Manual) APTT POC ABG pH ABG pH POC ABG pCO2 56.4 H POC ABG pO2 46 L ABG pO2 ABG HCO3 ABG O2 Saturation ABG Base Excess ABG Hemoglobin VBG pH Oxyhemoglobin Sodium Potassium Chloride Carbon Dioxide BUN Creatinine Glucose POC Glucose 176 H 143 H Lactic Acid Calcium Phosphorus Total Bilirubin AST ALT C-Reactive Protein Total Protein Albumin Triglycerides Amylase Lipase Urine WBC (Auto) Vancomycin Trough Crossmatch 12/18/17 12/18/17 12/18/17 07:59 09:20 09:20 WBC 27.4 H RBC 3.57 L Hgb 11.4 L Hct MCV 101 H MCH MCHC RDW Plt Count 64 L Lymph % (Auto) [place] % (Auto) Eos % (Auto) [place] # Eos # Baso # Seg Neutrophils % Seg Neuts % (Manual) Lymphocytes % (Manual) Monocytes % (Manual) Eosinophils % (Manual) Nucleated RBC % Seg Neutrophils # Seg Neutrophils # Man Lymphocytes # (Manual) Monocytes # (Manual) Eosinophils # (Manual) APTT POC ABG pH ABG pH POC ABG pCO2 POC ABG pO2 ABG pO2 ABG HCO3 ABG O2 Saturation ABG Base Excess ABG Hemoglobin VBG pH Oxyhemoglobin Sodium 152 H Potassium Chloride 107.9 H Carbon Dioxide 34 H BUN 23 H Creatinine 0.7 L Glucose 181 H POC Glucose 197 H Lactic Acid Calcium Phosphorus Total Bilirubin AST ALT C-Reactive Protein Total Protein Albumin Triglycerides Amylase Lipase Urine WBC (Auto) Vancomycin Trough Crossmatch 12/18/17 12/18/17 12/18/17 10:22 15:03 18:15 WBC RBC Hgb Hct MCV MCH MCHC RDW Plt Count Lymph % (Auto) [place] % (Auto) Eos % (Auto) [place] # Eos # Baso # Seg Neutrophils % Seg Neuts % (Manual) Lymphocytes % (Manual) Monocytes % (Manual) Eosinophils % (Manual) Nucleated RBC % Seg Neutrophils # Seg Neutrophils # Man Lymphocytes # (Manual) Monocytes # (Manual) Eosinophils # (Manual) APTT POC ABG pH ABG pH POC ABG pCO2 POC ABG pO2 ABG pO2 ABG HCO3 ABG O2 Saturation ABG Base Excess ABG Hemoglobin VBG pH Oxyhemoglobin Sodium Potassium Chloride Carbon Dioxide BUN Creatinine Glucose POC Glucose 195 H 225 H 238 H Lactic Acid Calcium Phosphorus Total Bilirubin AST ALT C-Reactive Protein Total Protein Albumin Triglycerides Amylase Lipase Urine WBC (Auto) Vancomycin Trough Crossmatch 12/18/17 12/18/17 12/19/17 18:29 21:53 00:18 WBC RBC Hgb Hct MCV MCH MCHC RDW Plt Count Lymph % (Auto) [place] % (Auto) Eos % (Auto) [place] # Eos # Baso # Seg Neutrophils % Seg Neuts % (Manual) Lymphocytes % (Manual) Monocytes % (Manual) Eosinophils % (Manual) Nucleated RBC % Seg Neutrophils # Seg Neutrophils # Man Lymphocytes # (Manual) Monocytes # (Manual) Eosinophils # (Manual) APTT POC ABG pH 7.476 H ABG pH POC ABG pCO2 50.4 H POC ABG pO2 158 H ABG pO2 ABG HCO3 ABG O2 Saturation ABG Base Excess ABG Hemoglobin VBG pH Oxyhemoglobin Sodium Potassium Chloride Carbon Dioxide BUN Creatinine Glucose POC Glucose 231 H 263 H Lactic Acid Calcium Phosphorus Total Bilirubin AST ALT C-Reactive Protein Total Protein Albumin Triglycerides Amylase Lipase Urine WBC (Auto) Vancomycin Trough Crossmatch 12/19/17 12/19/17 12/19/17 02:09 04:07 04:07 WBC 25.9 H RBC 3.25 L Hgb 10.6 L Hct 32.8 L MCV 101 H MCH 33 H MCHC RDW Plt Count 67 L Lymph % (Auto) [place] % (Auto) Eos % (Auto) [place] # Eos # Baso # Seg Neutrophils % Seg Neuts % (Manual) Lymphocytes % (Manual) 4.0 L Monocytes % (Manual) Eosinophils % (Manual) Nucleated RBC % Seg Neutrophils # Seg Neutrophils # Man 14.8 H Lymphocytes # (Manual) 1.0 L Monocytes # (Manual) Eosinophils # (Manual) APTT POC ABG pH ABG pH POC ABG pCO2 POC ABG pO2 ABG pO2 ABG HCO3 ABG O2 Saturation ABG Base Excess ABG Hemoglobin VBG pH Oxyhemoglobin Sodium 148 H Potassium Chloride Carbon Dioxide BUN 31 H Creatinine Glucose 314 H POC Glucose 300 H Lactic Acid Calcium 8.1 L Phosphorus Total Bilirubin AST ALT C-Reactive Protein Total Protein Albumin Triglycerides Amylase Lipase Urine WBC (Auto) Vancomycin Trough Crossmatch 12/19/17 12/19/17 12/19/17 05:15 05:41 07:57 WBC RBC Hgb Hct MCV MCH MCHC RDW Plt Count Lymph % (Auto) [place] % (Auto) Eos % (Auto) [place] # Eos # Baso # Seg Neutrophils % Seg Neuts % (Manual) Lymphocytes % (Manual) Monocytes % (Manual) Eosinophils % (Manual) Nucleated RBC % Seg Neutrophils # Seg Neutrophils # Man Lymphocytes # (Manual) Monocytes # (Manual) Eosinophils # (Manual) APTT POC ABG pH 7.507 H ABG pH POC ABG pCO2 POC ABG pO2 ABG pO2 ABG HCO3 ABG O2 Saturation ABG Base Excess ABG Hemoglobin VBG pH Oxyhemoglobin Sodium Potassium Chloride Carbon Dioxide BUN Creatinine Glucose POC Glucose 331 H 307 H Lactic Acid Calcium Phosphorus Total Bilirubin AST ALT C-Reactive Protein Total Protein Albumin Triglycerides Amylase Lipase Urine WBC (Auto) Vancomycin Trough Crossmatch 12/19/17 12/19/17 12/19/17 10:21 14:48 17:59 WBC RBC Hgb Hct MCV MCH MCHC RDW Plt Count Lymph % (Auto) [place] % (Auto) Eos % (Auto) [place] # Eos # Baso # Seg Neutrophils % Seg Neuts % (Manual) Lymphocytes % (Manual) Monocytes % (Manual) Eosinophils % (Manual) Nucleated RBC % Seg Neutrophils # Seg Neutrophils # Man Lymphocytes # (Manual) Monocytes # (Manual) Eosinophils # (Manual) APTT POC ABG pH ABG pH POC ABG pCO2 POC ABG pO2 ABG pO2 ABG HCO3 ABG O2 Saturation ABG Base Excess ABG Hemoglobin VBG pH Oxyhemoglobin Sodium Potassium Chloride Carbon Dioxide BUN Creatinine Glucose POC Glucose 358 H 327 H 355 H Lactic Acid Calcium Phosphorus Total Bilirubin AST ALT C-Reactive Protein Total Protein Albumin Triglycerides Amylase Lipase Urine WBC (Auto) Vancomycin Trough Crossmatch 12/19/17 12/20/17 12/20/17 21:38 02:21 03:42 WBC RBC Hgb Hct MCV MCH MCHC RDW Plt Count Lymph % (Auto) [place] % (Auto) Eos % (Auto) [place] # Eos # Baso # Seg Neutrophils % Seg Neuts % (Manual) Lymphocytes % (Manual) Monocytes % (Manual) Eosinophils % (Manual) Nucleated RBC % Seg Neutrophils # Seg Neutrophils # Man Lymphocytes # (Manual) Monocytes # (Manual) Eosinophils # (Manual) APTT POC ABG pH 7.494 H ABG pH POC ABG pCO2 POC ABG pO2 ABG pO2 ABG HCO3 ABG O2 Saturation ABG Base Excess ABG Hemoglobin VBG pH Oxyhemoglobin Sodium Potassium Chloride Carbon Dioxide BUN Creatinine Glucose POC Glucose 329 H 354 H Lactic Acid Calcium Phosphorus Total Bilirubin AST ALT C-Reactive Protein Total Protein Albumin Triglycerides Amylase Lipase Urine WBC (Auto) Vancomycin Trough Crossmatch 12/20/17 12/20/17 12/20/17 04:08 04:08 04:08 WBC 22.7 H RBC 3.26 L Hgb 10.6 L Hct 32.9 L MCV 101 H MCH 33 H MCHC RDW Plt Count 78 L Lymph % (Auto) [place] % (Auto) Eos % (Auto) [place] # Eos # Baso # Seg Neutrophils % Seg Neuts % (Manual) 80.0 H Lymphocytes % (Manual) 6.0 L Monocytes % (Manual) Eosinophils % (Manual) Nucleated RBC % Seg Neutrophils # Seg Neutrophils # Man 18.2 H Lymphocytes # (Manual) Monocytes # (Manual) Eosinophils # (Manual) APTT POC ABG pH ABG pH POC ABG pCO2 POC ABG pO2 ABG pO2 ABG HCO3 ABG O2 Saturation ABG Base Excess ABG Hemoglobin VBG pH Oxyhemoglobin Sodium Potassium Chloride Carbon Dioxide 31 H BUN 30 H Creatinine 0.6 L Glucose 365 H POC Glucose Lactic Acid Calcium Phosphorus Total Bilirubin AST ALT C-Reactive Protein Total Protein Albumin Triglycerides 981 H Amylase Lipase Urine WBC (Auto) Vancomycin Trough Crossmatch 12/20/17 12/20/17 12/20/17 05:15 10:47 13:40 WBC RBC Hgb Hct MCV MCH MCHC RDW Plt Count Lymph % (Auto) [place] % (Auto) Eos % (Auto) [place] # Eos # Baso # Seg Neutrophils % Seg Neuts % (Manual) Lymphocytes % (Manual) Monocytes % (Manual) Eosinophils % (Manual) Nucleated RBC % Seg Neutrophils # Seg Neutrophils # Man Lymphocytes # (Manual) Monocytes # (Manual) Eosinophils # (Manual) APTT POC ABG pH ABG pH POC ABG pCO2 POC ABG pO2 ABG pO2 ABG HCO3 ABG O2 Saturation ABG Base Excess ABG Hemoglobin VBG pH Oxyhemoglobin Sodium Potassium Chloride Carbon Dioxide BUN Creatinine Glucose POC Glucose 342 H 330 H Lactic Acid Calcium Phosphorus Total Bilirubin AST ALT C-Reactive Protein 7.10 H Total Protein Albumin Triglycerides Amylase Lipase Urine WBC (Auto) Vancomycin Trough Crossmatch 12/20/17 12/20/17 12/20/17 13:40 14:52 16:55 WBC RBC Hgb Hct MCV MCH MCHC RDW Plt Count Lymph % (Auto) [place] % (Auto) Eos % (Auto) [place] # Eos # Baso # Seg Neutrophils % Seg Neuts % (Manual) Lymphocytes % (Manual) Monocytes % (Manual) Eosinophils % (Manual) Nucleated RBC % Seg Neutrophils # Seg Neutrophils # Man Lymphocytes # (Manual) Monocytes # (Manual) Eosinophils # (Manual) APTT POC ABG pH 7.484 H ABG pH POC ABG pCO2 POC ABG pO2 ABG pO2 ABG HCO3 ABG O2 Saturation ABG Base Excess ABG Hemoglobin VBG pH Oxyhemoglobin Sodium Potassium Chloride Carbon Dioxide BUN Creatinine Glucose POC Glucose 293 H Lactic Acid Calcium Phosphorus Total Bilirubin AST ALT C-Reactive Protein Total Protein Albumin Triglycerides 1042 H Amylase Lipase Urine WBC (Auto) Vancomycin Trough Crossmatch 12/20/17 12/20/17 12/21/17 18:00 21:58 02:05 WBC RBC Hgb Hct MCV MCH MCHC RDW Plt Count Lymph % (Auto) [place] % (Auto) Eos % (Auto) [place] # Eos # Baso # Seg Neutrophils % Seg Neuts % (Manual) Lymphocytes % (Manual) Monocytes % (Manual) Eosinophils % (Manual) Nucleated RBC % Seg Neutrophils # Seg Neutrophils # Man Lymphocytes # (Manual) Monocytes # (Manual) Eosinophils # (Manual) APTT POC ABG pH ABG pH POC ABG pCO2 POC ABG pO2 ABG pO2 ABG HCO3 ABG O2 Saturation ABG Base Excess ABG Hemoglobin VBG pH Oxyhemoglobin Sodium Potassium Chloride Carbon Dioxide BUN Creatinine Glucose POC Glucose 268 H 272 H 229 H Lactic Acid Calcium Phosphorus Total Bilirubin AST ALT C-Reactive Protein Total Protein Albumin Triglycerides Amylase Lipase Urine WBC (Auto) Vancomycin Trough Crossmatch 12/21/17 12/21/17 12/21/17 03:59 06:23 08:57 WBC RBC Hgb Hct MCV MCH MCHC RDW Plt Count Lymph % (Auto) [place] % (Auto) Eos % (Auto) [place] # Eos # Baso # Seg Neutrophils % Seg Neuts % (Manual) Lymphocytes % (Manual) Monocytes % (Manual) Eosinophils % (Manual) Nucleated RBC % Seg Neutrophils # Seg Neutrophils # Man Lymphocytes # (Manual) Monocytes # (Manual) Eosinophils # (Manual) APTT POC ABG pH 7.474 H ABG pH POC ABG pCO2 POC ABG pO2 71 L ABG pO2 ABG HCO3 ABG O2 Saturation ABG Base Excess ABG Hemoglobin VBG pH Oxyhemoglobin Sodium Potassium Chloride Carbon Dioxide BUN Creatinine Glucose POC Glucose 182 H 217 H Lactic Acid Calcium Phosphorus Total Bilirubin AST ALT C-Reactive Protein Total Protein Albumin Triglycerides Amylase Lipase Urine WBC (Auto) Vancomycin Trough Crossmatch 12/21/17 12/21/17 12/21/17 13:59 18:00 21:20 WBC RBC Hgb Hct MCV MCH MCHC RDW Plt Count Lymph % (Auto) [place] % (Auto) Eos % (Auto) [place] # Eos # Baso # Seg Neutrophils % Seg Neuts % (Manual) Lymphocytes % (Manual) Monocytes % (Manual) Eosinophils % (Manual) Nucleated RBC % Seg Neutrophils # Seg Neutrophils # Man Lymphocytes # (Manual) Monocytes # (Manual) Eosinophils # (Manual) APTT POC ABG pH ABG pH POC ABG pCO2 POC ABG pO2 ABG pO2 ABG HCO3 ABG O2 Saturation ABG Base Excess ABG Hemoglobin VBG pH Oxyhemoglobin Sodium Potassium Chloride Carbon Dioxide BUN Creatinine Glucose POC Glucose 185 H 176 H 187 H Lactic Acid Calcium Phosphorus Total Bilirubin AST ALT C-Reactive Protein Total Protein Albumin Triglycerides Amylase Lipase Urine WBC (Auto) Vancomycin Trough Crossmatch 12/21/17 12/22/17 12/22/17 23:48 04:39 05:30 WBC RBC Hgb Hct MCV MCH MCHC RDW Plt Count Lymph % (Auto) [place] % (Auto) Eos % (Auto) [place] # Eos # Baso # Seg Neutrophils % Seg Neuts % (Manual) Lymphocytes % (Manual) Monocytes % (Manual) Eosinophils % (Manual) Nucleated RBC % Seg Neutrophils # Seg Neutrophils # Man Lymphocytes # (Manual) Monocytes # (Manual) Eosinophils # (Manual) APTT POC ABG pH 7.528 H ABG pH POC ABG pCO2 POC ABG pO2 63 L ABG pO2 ABG HCO3 ABG O2 Saturation ABG Base Excess ABG Hemoglobin VBG pH Oxyhemoglobin Sodium Potassium Chloride Carbon Dioxide BUN Creatinine Glucose POC Glucose 126 H 117 H Lactic Acid Calcium Phosphorus Total Bilirubin AST ALT C-Reactive Protein Total Protein Albumin Triglycerides Amylase Lipase Urine WBC (Auto) Vancomycin Trough Crossmatch 12/22/17 12/22/17 12/22/17 09:12 10:34 10:34 WBC 29.5 H RBC 3.44 L Hgb 11.2 L Hct 34.2 L MCV 99 H MCH 33 H MCHC RDW 13.1 L Plt Count 97 L Lymph % (Auto) [place] % (Auto) Eos % (Auto) [place] # Eos # Baso # Seg Neutrophils % Seg Neuts % (Manual) 88.0 H Lymphocytes % (Manual) 5.0 L Monocytes % (Manual) Eosinophils % (Manual) Nucleated RBC % Seg Neutrophils # Seg Neutrophils # Man 26.0 H Lymphocytes # (Manual) Monocytes # (Manual) Eosinophils # (Manual) APTT POC ABG pH ABG pH POC ABG pCO2 POC ABG pO2 ABG pO2 ABG HCO3 ABG O2 Saturation ABG Base Excess ABG Hemoglobin VBG pH Oxyhemoglobin Sodium 146 H Potassium 3.1 L Chloride Carbon Dioxide BUN 25 H Creatinine 0.7 L Glucose 146 H POC Glucose 168 H Lactic Acid Calcium 8.1 L Phosphorus Total Bilirubin AST ALT C-Reactive Protein Total Protein Albumin Triglycerides Amylase Lipase Urine WBC (Auto) Vancomycin Trough Crossmatch 12/22/17 12/22/17 12/22/17 14:51 17:21 21:43 WBC RBC Hgb Hct MCV MCH MCHC RDW Plt Count Lymph % (Auto) [place] % (Auto) Eos % (Auto) [place] # Eos # Baso # Seg Neutrophils % Seg Neuts % (Manual) Lymphocytes % (Manual) Monocytes % (Manual) Eosinophils % (Manual) Nucleated RBC % Seg Neutrophils # Seg Neutrophils # Man Lymphocytes # (Manual) Monocytes # (Manual) Eosinophils # (Manual) APTT POC ABG pH ABG pH POC ABG pCO2 POC ABG pO2 ABG pO2 ABG HCO3 ABG O2 Saturation ABG Base Excess ABG Hemoglobin VBG pH Oxyhemoglobin Sodium Potassium Chloride Carbon Dioxide BUN Creatinine Glucose POC Glucose 125 H 110 H 153 H Lactic Acid Calcium Phosphorus Total Bilirubin AST ALT C-Reactive Protein Total Protein Albumin Triglycerides Amylase Lipase Urine WBC (Auto) Vancomycin Trough Crossmatch 12/23/17 12/23/17 12/23/17 04:33 05:28 09:25 WBC 31.4 H RBC 3.05 L Hgb 9.8 L Hct 30.2 L MCV 99 H MCH MCHC RDW 12.9 L Plt Count 101 L Lymph % (Auto) [place] % (Auto) Eos % (Auto) [place] # Eos # Baso # Seg Neutrophils % Seg Neuts % (Manual) 97 H Lymphocytes % (Manual) 2 L Monocytes % (Manual) Eosinophils % (Manual) Nucleated RBC % Seg Neutrophils # Seg Neutrophils # Man 31.1 H Lymphocytes # (Manual) 0.5 L Monocytes # (Manual) Eosinophils # (Manual) APTT POC ABG pH 7.573 H ABG pH POC ABG pCO2 31.0 L POC ABG pO2 63 L ABG pO2 ABG HCO3 ABG O2 Saturation ABG Base Excess ABG Hemoglobin VBG pH Oxyhemoglobin Sodium Potassium Chloride Carbon Dioxide BUN Creatinine Glucose POC Glucose 124 H Lactic Acid Calcium Phosphorus Total Bilirubin AST ALT C-Reactive Protein Total Protein Albumin Triglycerides Amylase Lipase Urine WBC (Auto) Vancomycin Trough Crossmatch 12/23/17 12/23/17 12/23/17 09:25 10:08 14:20 WBC RBC Hgb Hct MCV MCH MCHC RDW Plt Count Lymph % (Auto) [place] % (Auto) Eos % (Auto) [place] # Eos # Baso # Seg Neutrophils % Seg Neuts % (Manual) Lymphocytes % (Manual) Monocytes % (Manual) Eosinophils % (Manual) Nucleated RBC % Seg Neutrophils # Seg Neutrophils # Man Lymphocytes # (Manual) Monocytes # (Manual) Eosinophils # (Manual) APTT POC ABG pH ABG pH POC ABG pCO2 POC ABG pO2 ABG pO2 ABG HCO3 ABG O2 Saturation ABG Base Excess ABG Hemoglobin VBG pH Oxyhemoglobin Sodium Potassium 3.1 L Chloride Carbon Dioxide BUN Creatinine 0.6 L Glucose 169 H POC Glucose 171 H 211 H Lactic Acid Calcium 7.9 L Phosphorus Total Bilirubin AST ALT C-Reactive Protein Total Protein Albumin Triglycerides Amylase Lipase Urine WBC (Auto) Vancomycin Trough Crossmatch 12/23/17 12/23/17 12/24/17 18:59 21:49 01:47 WBC RBC Hgb Hct MCV MCH MCHC RDW Plt Count Lymph % (Auto) [place] % (Auto) Eos % (Auto) [place] # Eos # Baso # Seg Neutrophils % Seg Neuts % (Manual) Lymphocytes % (Manual) Monocytes % (Manual) Eosinophils % (Manual) Nucleated RBC % Seg Neutrophils # Seg Neutrophils # Man Lymphocytes # (Manual) Monocytes # (Manual) Eosinophils # (Manual) APTT POC ABG pH ABG pH POC ABG pCO2 POC ABG pO2 ABG pO2 ABG HCO3 ABG O2 Saturation ABG Base Excess ABG Hemoglobin VBG pH Oxyhemoglobin Sodium Potassium Chloride Carbon Dioxide BUN Creatinine Glucose POC Glucose 175 H 146 H 143 H Lactic Acid Calcium Phosphorus Total Bilirubin AST ALT C-Reactive Protein Total Protein Albumin Triglycerides Amylase Lipase Urine WBC (Auto) Vancomycin Trough Crossmatch 12/24/17 12/24/17 12/24/17 05:40 10:12 13:12 WBC RBC Hgb Hct MCV MCH MCHC RDW Plt Count Lymph % (Auto) [place] % (Auto) Eos % (Auto) [place] # Eos # Baso # Seg Neutrophils % Seg Neuts % (Manual) Lymphocytes % (Manual) Monocytes % (Manual) Eosinophils % (Manual) Nucleated RBC % Seg Neutrophils # Seg Neutrophils # Man Lymphocytes # (Manual) Monocytes # (Manual) Eosinophils # (Manual) APTT POC ABG pH 7.558 H ABG pH POC ABG pCO2 27.6 L POC ABG pO2 71 L ABG pO2 ABG HCO3 ABG O2 Saturation ABG Base Excess ABG Hemoglobin VBG pH Oxyhemoglobin Sodium Potassium Chloride Carbon Dioxide BUN Creatinine Glucose POC Glucose 118 H 111 H Lactic Acid Calcium Phosphorus Total Bilirubin AST ALT C-Reactive Protein Total Protein Albumin Triglycerides Amylase Lipase Urine WBC (Auto) Vancomycin Trough Crossmatch 12/24/17 12/24/17 12/24/17 16:26 20:44 21:49 WBC RBC Hgb Hct MCV MCH MCHC RDW Plt Count Lymph % (Auto) [place] % (Auto) Eos % (Auto) [place] # Eos # Baso # Seg Neutrophils % Seg Neuts % (Manual) Lymphocytes % (Manual) Monocytes % (Manual) Eosinophils % (Manual) Nucleated RBC % Seg Neutrophils # Seg Neutrophils # Man Lymphocytes # (Manual) Monocytes # (Manual) Eosinophils # (Manual) APTT POC ABG pH ABG pH POC ABG pCO2 POC ABG pO2 ABG pO2 ABG HCO3 ABG O2 Saturation ABG Base Excess ABG Hemoglobin VBG pH Oxyhemoglobin Sodium Potassium Chloride Carbon Dioxide BUN Creatinine Glucose POC Glucose 113 H 124 H 115 H Lactic Acid Calcium Phosphorus Total Bilirubin AST ALT C-Reactive Protein Total Protein Albumin Triglycerides Amylase Lipase Urine WBC (Auto) Vancomycin Trough Crossmatch 12/24/17 12/25/17 12/25/17 Unknown 02:26 03:38 WBC RBC Hgb Hct MCV MCH MCHC RDW Plt Count Lymph % (Auto) [place] % (Auto) Eos % (Auto) [place] # Eos # Baso # Seg Neutrophils % Seg Neuts % (Manual) Lymphocytes % (Manual) Monocytes % (Manual) Eosinophils % (Manual) Nucleated RBC % Seg Neutrophils # Seg Neutrophils # Man Lymphocytes # (Manual) Monocytes # (Manual) Eosinophils # (Manual) APTT POC ABG pH 7.503 H ABG pH POC ABG pCO2 POC ABG pO2 66 L ABG pO2 ABG HCO3 ABG O2 Saturation ABG Base Excess ABG Hemoglobin VBG pH Oxyhemoglobin Sodium Potassium 3.0 L Chloride Carbon Dioxide BUN Creatinine 0.5 L Glucose 166 H POC Glucose 106 H Lactic Acid Calcium 7.8 L Phosphorus Total Bilirubin AST ALT C-Reactive Protein Total Protein Albumin Triglycerides Amylase Lipase Urine WBC (Auto) Vancomycin Trough Crossmatch 12/25/17 12/25/17 12/25/17 04:58 12:58 15:06 WBC RBC Hgb Hct MCV MCH MCHC RDW Plt Count Lymph % (Auto) [place] % (Auto) Eos % (Auto) [place] # Eos # Baso # Seg Neutrophils % Seg Neuts % (Manual) Lymphocytes % (Manual) Monocytes % (Manual) Eosinophils % (Manual) Nucleated RBC % Seg Neutrophils # Seg Neutrophils # Man Lymphocytes # (Manual) Monocytes # (Manual) Eosinophils # (Manual) APTT POC ABG pH ABG pH POC ABG pCO2 POC ABG pO2 ABG pO2 ABG HCO3 ABG O2 Saturation ABG Base Excess ABG Hemoglobin VBG pH Oxyhemoglobin Sodium Potassium Chloride Carbon Dioxide BUN Creatinine Glucose POC Glucose 113 H 118 H Lactic Acid Calcium Phosphorus Total Bilirubin AST ALT C-Reactive Protein Total Protein Albumin Triglycerides Amylase Lipase Urine WBC (Auto) Vancomycin Trough 22.5 H Crossmatch 12/25/17 12/25/17 12/25/17 17:59 21:33 Unknown WBC 20.5 H RBC 2.75 L Hgb 9.1 L Hct 27.1 L MCV 99 H MCH 33 H MCHC RDW Plt Count 126 L Lymph % (Auto) [place] % (Auto) Eos % (Auto) [place] # Eos # Baso # Seg Neutrophils % Seg Neuts % (Manual) 89.0 H Lymphocytes % (Manual) 6.0 L Monocytes % (Manual) Eosinophils % (Manual) Nucleated RBC % Seg Neutrophils # Seg Neutrophils # Man 18.2 H Lymphocytes # (Manual) Monocytes # (Manual) Eosinophils # (Manual) APTT POC ABG pH ABG pH POC ABG pCO2 POC ABG pO2 ABG pO2 ABG HCO3 ABG O2 Saturation ABG Base Excess ABG Hemoglobin VBG pH Oxyhemoglobin Sodium Potassium Chloride Carbon Dioxide BUN Creatinine Glucose POC Glucose 145 H 167 H Lactic Acid Calcium Phosphorus Total Bilirubin AST ALT C-Reactive Protein Total Protein Albumin Triglycerides Amylase Lipase Urine WBC (Auto) Vancomycin Trough Crossmatch 12/25/17 12/26/17 12/26/17 Unknown 02:26 05:29 WBC RBC Hgb Hct MCV MCH MCHC RDW Plt Count Lymph % (Auto) [place] % (Auto) Eos % (Auto) [place] # Eos # Baso # Seg Neutrophils % Seg Neuts % (Manual) Lymphocytes % (Manual) Monocytes % (Manual) Eosinophils % (Manual) Nucleated RBC % Seg Neutrophils # Seg Neutrophils # Man Lymphocytes # (Manual) Monocytes # (Manual) Eosinophils # (Manual) APTT POC ABG pH ABG pH POC ABG pCO2 POC ABG pO2 ABG pO2 ABG HCO3 ABG O2 Saturation ABG Base Excess ABG Hemoglobin VBG pH Oxyhemoglobin Sodium Potassium 2.8 L* Chloride Carbon Dioxide BUN Creatinine 0.6 L Glucose POC Glucose 167 H 216 H Lactic Acid Calcium 7.4 L Phosphorus Total Bilirubin AST ALT C-Reactive Protein Total Protein Albumin Triglycerides Amylase Lipase Urine WBC (Auto) Vancomycin Trough Crossmatch 12/26/17 12/26/17 12/26/17 10:21 14:30 18:35 WBC RBC Hgb Hct MCV MCH MCHC RDW Plt Count Lymph % (Auto) [place] % (Auto) Eos % (Auto) [place] # Eos # Baso # Seg Neutrophils % Seg Neuts % (Manual) Lymphocytes % (Manual) Monocytes % (Manual) Eosinophils % (Manual) Nucleated RBC % Seg Neutrophils # Seg Neutrophils # Man Lymphocytes # (Manual) Monocytes # (Manual) Eosinophils # (Manual) APTT POC ABG pH ABG pH POC ABG pCO2 POC ABG pO2 ABG pO2 ABG HCO3 ABG O2 Saturation ABG Base Excess ABG Hemoglobin VBG pH Oxyhemoglobin Sodium Potassium Chloride Carbon Dioxide BUN Creatinine Glucose POC Glucose 164 H 157 H 146 H Lactic Acid Calcium Phosphorus Total Bilirubin AST ALT C-Reactive Protein Total Protein Albumin Triglycerides Amylase Lipase Urine WBC (Auto) Vancomycin Trough Crossmatch 12/26/17 12/26/17 12/27/17 21:21 Unknown 01:54 WBC RBC Hgb Hct MCV MCH MCHC RDW Plt Count Lymph % (Auto) [place] % (Auto) Eos % (Auto) [place] # Eos # Baso # Seg Neutrophils % Seg Neuts % (Manual) Lymphocytes % (Manual) Monocytes % (Manual) Eosinophils % (Manual) Nucleated RBC % Seg Neutrophils # Seg Neutrophils # Man Lymphocytes # (Manual) Monocytes # (Manual) Eosinophils # (Manual) APTT POC ABG pH ABG pH POC ABG pCO2 POC ABG pO2 ABG pO2 ABG HCO3 ABG O2 Saturation ABG Base Excess ABG Hemoglobin VBG pH Oxyhemoglobin Sodium Potassium 3.0 L Chloride Carbon Dioxide BUN Creatinine 0.5 L Glucose 166 H POC Glucose 132 H 157 H Lactic Acid Calcium 7.8 L Phosphorus Total Bilirubin AST ALT C-Reactive Protein Total Protein Albumin Triglycerides Amylase Lipase Urine WBC (Auto) Vancomycin Trough Crossmatch 12/27/17 12/27/17 12/27/17 05:20 05:20 05:44 WBC 26.4 H RBC 2.83 L Hgb 9.3 L Hct 27.6 L MCV 98 H MCH 33 H MCHC RDW Plt Count Lymph % (Auto) Adams % (Auto) Eos % (Auto) Adams # Eos # Baso # Seg Neutrophils % Seg Neuts % (Manual) 85.0 H Lymphocytes % (Manual) 5.0 L Monocytes % (Manual) Eosinophils % (Manual) Nucleated RBC % Seg Neutrophils # Seg Neutrophils # Man 22.4 H Lymphocytes # (Manual) Monocytes # (Manual) Eosinophils # (Manual) 0.5 H APTT POC ABG pH ABG pH POC ABG pCO2 POC ABG pO2 ABG pO2 ABG HCO3 ABG O2 Saturation ABG Base Excess ABG Hemoglobin VBG pH Oxyhemoglobin Sodium Potassium 2.3 L* D Chloride Carbon Dioxide BUN 7 L Creatinine 0.6 L Glucose 123 H POC Glucose 128 H Lactic Acid Calcium 8.1 L Phosphorus Total Bilirubin AST ALT C-Reactive Protein Total Protein Albumin Triglycerides Amylase Lipase Urine WBC (Auto) Vancomycin Trough Crossmatch 12/27/17 12/27/17 12/27/17 10:04 14:44 15:30 WBC RBC Hgb Hct MCV MCH MCHC RDW Plt Count Lymph % (Auto) Adams % (Auto) Eos % (Auto) Adams # Eos # Baso # Seg Neutrophils % Seg Neuts % (Manual) Lymphocytes % (Manual) Monocytes % (Manual) Eosinophils % (Manual) Nucleated RBC % Seg Neutrophils # Seg Neutrophils # Man Lymphocytes # (Manual) Monocytes # (Manual) Eosinophils # (Manual) APTT POC ABG pH ABG pH POC ABG pCO2 POC ABG pO2 ABG pO2 ABG HCO3 ABG O2 Saturation ABG Base Excess ABG Hemoglobin VBG pH Oxyhemoglobin Sodium Potassium 3.1 L D Chloride Carbon Dioxide BUN Creatinine Glucose POC Glucose 115 H 128 H Lactic Acid Calcium Phosphorus Total Bilirubin AST ALT C-Reactive Protein Total Protein Albumin Triglycerides Amylase Lipase Urine WBC (Auto) Vancomycin Trough Crossmatch 12/28/17 12/28/17 12/28/17 00:39 02:13 05:17 WBC RBC Hgb Hct MCV MCH MCHC RDW Plt Count Lymph % (Auto) Adams % (Auto) Eos % (Auto) Adams # Eos # Baso # Seg Neutrophils % Seg Neuts % (Manual) Lymphocytes % (Manual) Monocytes % (Manual) Eosinophils % (Manual) Nucleated RBC % Seg Neutrophils # Seg Neutrophils # Man Lymphocytes # (Manual) Monocytes # (Manual) Eosinophils # (Manual) APTT POC ABG pH ABG pH 7.497 H POC ABG pCO2 POC ABG pO2 ABG pO2 71.4 L ABG HCO3 29.9 H ABG O2 Saturation ABG Base Excess 6.2 H ABG Hemoglobin 7.9 L VBG pH Oxyhemoglobin 94.9 L Sodium Potassium Chloride Carbon Dioxide BUN Creatinine Glucose POC Glucose 112 H 108 H Lactic Acid Calcium Phosphorus Total Bilirubin AST ALT C-Reactive Protein Total Protein Albumin Triglycerides Amylase Lipase Urine WBC (Auto) Vancomycin Trough Crossmatch 12/28/17 12/28/17 12/28/17 08:47 08:47 09:10 WBC 28.1 H RBC 2.76 L Hgb 9.1 L Hct 27.0 L MCV 98 H MCH 33 H MCHC RDW Plt Count Lymph % (Auto) Adams % (Auto) Eos % (Auto) Adams # Eos # Baso # Seg Neutrophils % Seg Neuts % (Manual) Lymphocytes % (Manual) Monocytes % (Manual) Eosinophils % (Manual) Nucleated RBC % Seg Neutrophils # Seg Neutrophils # Man Lymphocytes # (Manual) Monocytes # (Manual) Eosinophils # (Manual) APTT POC ABG pH ABG pH POC ABG pCO2 POC ABG pO2 ABG pO2 ABG HCO3 ABG O2 Saturation ABG Base Excess ABG Hemoglobin VBG pH Oxyhemoglobin Sodium Potassium 2.2 L* D Chloride Carbon Dioxide BUN 5 L Creatinine 0.5 L Glucose 106 H POC Glucose Lactic Acid Calcium 8.3 L Phosphorus 2.20 L Total Bilirubin AST ALT C-Reactive Protein Total Protein Albumin Triglycerides Amylase Lipase Urine WBC (Auto) Vancomycin Trough Crossmatch 12/28/17 12/28/17 12/28/17 13:28 14:22 18:48 WBC RBC Hgb Hct MCV MCH MCHC RDW Plt Count Lymph % (Auto) Adams % (Auto) Eos % (Auto) Adams # Eos # Baso # Seg Neutrophils % Seg Neuts % (Manual) Lymphocytes % (Manual) Monocytes % (Manual) Eosinophils % (Manual) Nucleated RBC % Seg Neutrophils # Seg Neutrophils # Man Lymphocytes # (Manual) Monocytes # (Manual) Eosinophils # (Manual) APTT POC ABG pH ABG pH 7.476 H POC ABG pCO2 POC ABG pO2 ABG pO2 167.7 H ABG HCO3 30.9 H ABG O2 Saturation 99.1 H ABG Base Excess 6.7 H ABG Hemoglobin 8.5 L VBG pH Oxyhemoglobin Sodium Potassium Chloride Carbon Dioxide BUN Creatinine Glucose POC Glucose 141 H 129 H Lactic Acid Calcium Phosphorus Total Bilirubin AST ALT C-Reactive Protein Total Protein Albumin Triglycerides Amylase Lipase Urine WBC (Auto) Vancomycin Trough Crossmatch 12/28/17 12/29/17 12/29/17 21:22 02:45 05:11 WBC RBC Hgb Hct MCV MCH MCHC RDW Plt Count Lymph % (Auto) Adams % (Auto) Eos % (Auto) Adams # Eos # Baso # Seg Neutrophils % Seg Neuts % (Manual) Lymphocytes % (Manual) Monocytes % (Manual) Eosinophils % (Manual) Nucleated RBC % Seg Neutrophils # Seg Neutrophils # Man Lymphocytes # (Manual) Monocytes # (Manual) Eosinophils # (Manual) APTT POC ABG pH ABG pH POC ABG pCO2 POC ABG pO2 ABG pO2 ABG HCO3 ABG O2 Saturation ABG Base Excess ABG Hemoglobin VBG pH Oxyhemoglobin Sodium Potassium Chloride Carbon Dioxide BUN Creatinine Glucose POC Glucose 123 H 138 H 138 H Lactic Acid Calcium Phosphorus Total Bilirubin AST ALT C-Reactive Protein Total Protein Albumin Triglycerides Amylase Lipase Urine WBC (Auto) Vancomycin Trough Crossmatch 12/29/17 12/29/17 12/29/17 05:50 08:04 08:04 WBC 20.8 H RBC 2.26 L Hgb 7.5 L Hct 22.7 L MCV 100 H MCH 33 H MCHC RDW Plt Count Lymph % (Auto) Adams % (Auto) Eos % (Auto) Adams # Eos # Baso # Seg Neutrophils % Seg Neuts % (Manual) 93.0 H Lymphocytes % (Manual) 2.0 L Monocytes % (Manual) Eosinophils % (Manual) Nucleated RBC % Seg Neutrophils # Seg Neutrophils # Man 19.3 H Lymphocytes # (Manual) 0.4 L Monocytes # (Manual) Eosinophils # (Manual) 0.7 H APTT POC ABG pH ABG pH 7.467 H POC ABG pCO2 POC ABG pO2 ABG pO2 ABG HCO3 28.2 H ABG O2 Saturation ABG Base Excess 4.0 H ABG Hemoglobin < 5.1 L VBG pH Oxyhemoglobin Sodium Potassium 3.0 L D Chloride Carbon Dioxide BUN Creatinine 0.5 L Glucose 147 H POC Glucose Lactic Acid Calcium 7.8 L Phosphorus Total Bilirubin AST ALT C-Reactive Protein Total Protein 5.6 L Albumin 2.4 L Triglycerides Amylase Lipase Urine WBC (Auto) Vancomycin Trough Crossmatch 12/29/17 12/29/17 12/29/17 08:20 10:59 14:09 WBC RBC Hgb Hct MCV MCH MCHC RDW Plt Count Lymph % (Auto) Adams % (Auto) Eos % (Auto) Adams # Eos # Baso # Seg Neutrophils % Seg Neuts % (Manual) Lymphocytes % (Manual) Monocytes % (Manual) Eosinophils % (Manual) Nucleated RBC % Seg Neutrophils # Seg Neutrophils # Man Lymphocytes # (Manual) Monocytes # (Manual) Eosinophils # (Manual) APTT POC ABG pH ABG pH POC ABG pCO2 POC ABG pO2 ABG pO2 ABG HCO3 ABG O2 Saturation ABG Base Excess ABG Hemoglobin VBG pH Oxyhemoglobin Sodium Potassium Chloride Carbon Dioxide BUN Creatinine Glucose POC Glucose 153 H 186 H 183 H Lactic Acid Calcium Phosphorus Total Bilirubin AST ALT C-Reactive Protein Total Protein Albumin Triglycerides Amylase Lipase Urine WBC (Auto) Vancomycin Trough Crossmatch 12/29/17 12/29/17 12/29/17 18:03 22:05 22:56 WBC RBC Hgb Hct MCV MCH MCHC RDW Plt Count Lymph % (Auto) Adams % (Auto) Eos % (Auto) Adams # Eos # Baso # Seg Neutrophils % Seg Neuts % (Manual) Lymphocytes % (Manual) Monocytes % (Manual) Eosinophils % (Manual) Nucleated RBC % Seg Neutrophils # Seg Neutrophils # Man Lymphocytes # (Manual) Monocytes # (Manual) Eosinophils # (Manual) APTT POC ABG pH ABG pH POC ABG pCO2 POC ABG pO2 ABG pO2 ABG HCO3 ABG O2 Saturation ABG Base Excess ABG Hemoglobin VBG pH Oxyhemoglobin Sodium Potassium Chloride Carbon Dioxide BUN Creatinine Glucose POC Glucose 159 H 146 H 179 H Lactic Acid Calcium Phosphorus Total Bilirubin AST ALT C-Reactive Protein Total Protein Albumin Triglycerides Amylase Lipase Urine WBC (Auto) Vancomycin Trough Crossmatch 12/30/17 12/30/17 12/30/17 02:03 04:50 04:50 WBC 18.3 H RBC 2.22 L Hgb 7.4 L Hct 23.0 L MCV 104 H MCH 33 H MCHC RDW Plt Count 137 L Lymph % (Auto) 9.0 L Adams % (Auto) Eos % (Auto) Adams # Eos # 0.5 H Baso # Seg Neutrophils % 84.9 H Seg Neuts % (Manual) Lymphocytes % (Manual) Monocytes % (Manual) Eosinophils % (Manual) Nucleated RBC % Seg Neutrophils # 15.6 H Seg Neutrophils # Man Lymphocytes # (Manual) Monocytes # (Manual) Eosinophils # (Manual) APTT POC ABG pH ABG pH POC ABG pCO2 POC ABG pO2 ABG pO2 ABG HCO3 ABG O2 Saturation ABG Base Excess ABG Hemoglobin VBG pH Oxyhemoglobin Sodium 147 H Potassium 3.1 L D Chloride 107.5 H Carbon Dioxide BUN Creatinine 0.5 L Glucose 120 H POC Glucose 118 H Lactic Acid Calcium 7.4 L Phosphorus Total Bilirubin AST ALT C-Reactive Protein Total Protein Albumin Triglycerides Amylase Lipase Urine WBC (Auto) Vancomycin Trough Crossmatch 12/30/17 12/30/17 12/30/17 05:04 13:53 17:33 WBC RBC Hgb Hct MCV MCH MCHC RDW Plt Count Lymph % (Auto) Adams % (Auto) Eos % (Auto) Adams # Eos # Baso # Seg Neutrophils % Seg Neuts % (Manual) Lymphocytes % (Manual) Monocytes % (Manual) Eosinophils % (Manual) Nucleated RBC % Seg Neutrophils # Seg Neutrophils # Man Lymphocytes # (Manual) Monocytes # (Manual) Eosinophils # (Manual) APTT POC ABG pH ABG pH POC ABG pCO2 POC ABG pO2 ABG pO2 ABG HCO3 ABG O2 Saturation ABG Base Excess ABG Hemoglobin VBG pH Oxyhemoglobin Sodium Potassium Chloride Carbon Dioxide BUN Creatinine Glucose POC Glucose 150 H 113 H 145 H Lactic Acid Calcium Phosphorus Total Bilirubin AST ALT C-Reactive Protein Total Protein Albumin Triglycerides Amylase Lipase Urine WBC (Auto) Vancomycin Trough Crossmatch 12/31/17 12/31/17 12/31/17 01:54 03:15 03:15 WBC 17.1 H RBC 2.08 L Hgb 6.9 L Hct 20.6 L MCV 99 H MCH 33 H MCHC RDW 13.1 L Plt Count Lymph % (Auto) 10.5 L Adams % (Auto) Eos % (Auto) Adams # Eos # 0.6 H Baso # Seg Neutrophils % 82.3 H Seg Neuts % (Manual) Lymphocytes % (Manual) Monocytes % (Manual) Eosinophils % (Manual) Nucleated RBC % Seg Neutrophils # 14.0 H Seg Neutrophils # Man Lymphocytes # (Manual) Monocytes # (Manual) Eosinophils # (Manual) APTT POC ABG pH ABG pH POC ABG pCO2 POC ABG pO2 ABG pO2 ABG HCO3 ABG O2 Saturation ABG Base Excess ABG Hemoglobin VBG pH Oxyhemoglobin Sodium Potassium 3.5 L Chloride Carbon Dioxide BUN Creatinine 0.6 L Glucose POC Glucose 69 L Lactic Acid Calcium 7.8 L Phosphorus Total Bilirubin AST ALT C-Reactive Protein Total Protein Albumin Triglycerides Amylase Lipase Urine WBC (Auto) Vancomycin Trough Crossmatch 12/31/17 12/31/17 12/31/17 05:15 09:25 10:17 WBC RBC Hgb Hct MCV MCH MCHC RDW Plt Count Lymph % (Auto) Adams % (Auto) Eos % (Auto) Adams # Eos # Baso # Seg Neutrophils % Seg Neuts % (Manual) Lymphocytes % (Manual) Monocytes % (Manual) Eosinophils % (Manual) Nucleated RBC % Seg Neutrophils # Seg Neutrophils # Man Lymphocytes # (Manual) Monocytes # (Manual) Eosinophils # (Manual) APTT POC ABG pH ABG pH 7.516 H POC ABG pCO2 POC ABG pO2 ABG pO2 69.2 L ABG HCO3 28.7 H ABG O2 Saturation ABG Base Excess 5.3 H ABG Hemoglobin 6.6 L VBG pH Oxyhemoglobin 93.8 L Sodium Potassium Chloride Carbon Dioxide BUN Creatinine Glucose POC Glucose 143 H Lactic Acid Calcium Phosphorus Total Bilirubin AST ALT C-Reactive Protein Total Protein Albumin Triglycerides Amylase Lipase Urine WBC (Auto) Vancomycin Trough Crossmatch See Detail 12/31/17 12/31/17 12/31/17 14:20 18:30 21:40 WBC RBC Hgb Hct MCV MCH MCHC RDW Plt Count Lymph % (Auto) Adams % (Auto) Eos % (Auto) Adams # Eos # Baso # Seg Neutrophils % Seg Neuts % (Manual) Lymphocytes % (Manual) Monocytes % (Manual) Eosinophils % (Manual) Nucleated RBC % Seg Neutrophils # Seg Neutrophils # Man Lymphocytes # (Manual) Monocytes # (Manual) Eosinophils # (Manual) APTT POC ABG pH ABG pH POC ABG pCO2 POC ABG pO2 ABG pO2 ABG HCO3 ABG O2 Saturation ABG Base Excess ABG Hemoglobin VBG pH Oxyhemoglobin Sodium Potassium Chloride Carbon Dioxide BUN Creatinine Glucose POC Glucose 175 H 137 H 182 H Lactic Acid Calcium Phosphorus Total Bilirubin AST ALT C-Reactive Protein Total Protein Albumin Triglycerides Amylase Lipase Urine WBC (Auto) Vancomycin Trough Crossmatch 12/31/17 01/01/18 01/01/18 23:34 02:09 04:00 WBC 16.4 H RBC 2.41 L Hgb 7.8 L Hct 23.6 L MCV 98 H MCH 33 H MCHC RDW Plt Count Lymph % (Auto) 10.7 L Adams % (Auto) Eos % (Auto) Adams # Eos # 0.7 H Baso # 0.2 H Seg Neutrophils % 79.0 H Seg Neuts % (Manual) Lymphocytes % (Manual) Monocytes % (Manual) Eosinophils % (Manual) Nucleated RBC % Seg Neutrophils # 12.9 H Seg Neutrophils # Man Lymphocytes # (Manual) Monocytes # (Manual) Eosinophils # (Manual) APTT POC ABG pH ABG pH POC ABG pCO2 POC ABG pO2 ABG pO2 ABG HCO3 ABG O2 Saturation ABG Base Excess ABG Hemoglobin VBG pH Oxyhemoglobin Sodium Potassium Chloride Carbon Dioxide BUN Creatinine Glucose POC Glucose 132 H 117 H Lactic Acid Calcium Phosphorus Total Bilirubin AST ALT C-Reactive Protein Total Protein Albumin Triglycerides Amylase Lipase Urine WBC (Auto) Vancomycin Trough Crossmatch 01/01/18 01/01/18 01/01/18 04:00 04:04 05:32 WBC RBC Hgb Hct MCV MCH MCHC RDW Plt Count Lymph % (Auto) Adams % (Auto) Eos % (Auto) Adams # Eos # Baso # Seg Neutrophils % Seg Neuts % (Manual) Lymphocytes % (Manual) Monocytes % (Manual) Eosinophils % (Manual) Nucleated RBC % Seg Neutrophils # Seg Neutrophils # Man Lymphocytes # (Manual) Monocytes # (Manual) Eosinophils # (Manual) APTT POC ABG pH ABG pH 7.458 H POC ABG pCO2 POC ABG pO2 ABG pO2 67.5 L ABG HCO3 27.5 H ABG O2 Saturation 94.4 L ABG Base Excess 3.4 H ABG Hemoglobin 7.8 L VBG pH Oxyhemoglobin 92.1 L Sodium Potassium Chloride Carbon Dioxide BUN Creatinine 0.4 L Glucose 129 H POC Glucose 129 H Lactic Acid Calcium 7.9 L Phosphorus Total Bilirubin AST ALT C-Reactive Protein Total Protein Albumin Triglycerides Amylase Lipase Urine WBC (Auto) Vancomycin Trough Crossmatch 01/01/18 01/01/18 01/01/18 10:10 12:38 17:27 WBC RBC Hgb Hct MCV MCH MCHC RDW Plt Count Lymph % (Auto) Adams % (Auto) Eos % (Auto) Adams # Eos # Baso # Seg Neutrophils % Seg Neuts % (Manual) Lymphocytes % (Manual) Monocytes % (Manual) Eosinophils % (Manual) Nucleated RBC % Seg Neutrophils # Seg Neutrophils # Man Lymphocytes # (Manual) Monocytes # (Manual) Eosinophils # (Manual) APTT POC ABG pH ABG pH POC ABG pCO2 POC ABG pO2 ABG pO2 ABG HCO3 ABG O2 Saturation ABG Base Excess ABG Hemoglobin VBG pH Oxyhemoglobin Sodium Potassium Chloride Carbon Dioxide BUN Creatinine Glucose POC Glucose 155 H 179 H 152 H Lactic Acid Calcium Phosphorus Total Bilirubin AST ALT C-Reactive Protein Total Protein Albumin Triglycerides Amylase Lipase Urine WBC (Auto) Vancomycin Trough Crossmatch 01/01/18 01/02/18 01/02/18 21:36 01:42 04:10 WBC 12.1 H RBC 2.29 L Hgb 7.5 L Hct 22.7 L MCV 99 H MCH 33 H MCHC RDW Plt Count Lymph % (Auto) Adams % (Auto) Eos % (Auto) 5.5 H Adams # 0.9 H Eos # 0.7 H Baso # Seg Neutrophils % Seg Neuts % (Manual) Lymphocytes % (Manual) Monocytes % (Manual) Eosinophils % (Manual) Nucleated RBC % Seg Neutrophils # 8.3 H Seg Neutrophils # Man Lymphocytes # (Manual) Monocytes # (Manual) Eosinophils # (Manual) APTT POC ABG pH ABG pH POC ABG pCO2 POC ABG pO2 ABG pO2 ABG HCO3 ABG O2 Saturation ABG Base Excess ABG Hemoglobin VBG pH Oxyhemoglobin Sodium Potassium Chloride Carbon Dioxide BUN Creatinine Glucose POC Glucose 118 H 117 H Lactic Acid Calcium Phosphorus Total Bilirubin AST ALT C-Reactive Protein Total Protein Albumin Triglycerides Amylase Lipase Urine WBC (Auto) Vancomycin Trough Crossmatch 01/02/18 01/02/18 01/02/18 04:10 04:57 13:42 WBC RBC Hgb Hct MCV MCH MCHC RDW Plt Count Lymph % (Auto) Adams % (Auto) Eos % (Auto) Adams # Eos # Baso # Seg Neutrophils % Seg Neuts % (Manual) Lymphocytes % (Manual) Monocytes % (Manual) Eosinophils % (Manual) Nucleated RBC % Seg Neutrophils # Seg Neutrophils # Man Lymphocytes # (Manual) Monocytes # (Manual) Eosinophils # (Manual) APTT POC ABG pH ABG pH POC ABG pCO2 POC ABG pO2 ABG pO2 ABG HCO3 ABG O2 Saturation ABG Base Excess ABG Hemoglobin VBG pH Oxyhemoglobin Sodium Potassium Chloride 97.0 L Carbon Dioxide BUN Creatinine 0.4 L Glucose POC Glucose 107 H 133 H Lactic Acid Calcium 8.1 L Phosphorus Total Bilirubin AST ALT C-Reactive Protein Total Protein 6.0 L Albumin 2.5 L Triglycerides Amylase Lipase Urine WBC (Auto) Vancomycin Trough Crossmatch 01/02/18 01/02/18 01/03/18 17:33 22:11 02:18 WBC RBC Hgb Hct MCV MCH MCHC RDW Plt Count Lymph % (Auto) Adams % (Auto) Eos % (Auto) Adams # Eos # Baso # Seg Neutrophils % Seg Neuts % (Manual) Lymphocytes % (Manual) Monocytes % (Manual) Eosinophils % (Manual) Nucleated RBC % Seg Neutrophils # Seg Neutrophils # Man Lymphocytes # (Manual) Monocytes # (Manual) Eosinophils # (Manual) APTT POC ABG pH ABG pH POC ABG pCO2 POC ABG pO2 ABG pO2 ABG HCO3 ABG O2 Saturation ABG Base Excess ABG Hemoglobin VBG pH Oxyhemoglobin Sodium Potassium Chloride Carbon Dioxide BUN Creatinine Glucose POC Glucose 146 H 171 H 162 H Lactic Acid Calcium Phosphorus Total Bilirubin AST ALT C-Reactive Protein Total Protein Albumin Triglycerides Amylase Lipase Urine WBC (Auto) Vancomycin Trough Crossmatch 01/03/18 01/03/18 01/03/18 04:56 05:21 17:20 WBC RBC Hgb Hct MCV MCH MCHC RDW Plt Count Lymph % (Auto) Adams % (Auto) Eos % (Auto) Adams # Eos # Baso # Seg Neutrophils % Seg Neuts % (Manual) Lymphocytes % (Manual) Monocytes % (Manual) Eosinophils % (Manual) Nucleated RBC % Seg Neutrophils # Seg Neutrophils # Man Lymphocytes # (Manual) Monocytes # (Manual) Eosinophils # (Manual) APTT POC ABG pH ABG pH POC ABG pCO2 POC ABG pO2 ABG pO2 79.5 L ABG HCO3 31.4 H ABG O2 Saturation ABG Base Excess 6.3 H ABG Hemoglobin 10.4 L VBG pH Oxyhemoglobin 94.2 L Sodium Potassium Chloride Carbon Dioxide BUN Creatinine Glucose POC Glucose 163 H 153 H Lactic Acid Calcium Phosphorus Total Bilirubin AST ALT C-Reactive Protein Total Protein Albumin Triglycerides Amylase Lipase Urine WBC (Auto) Vancomycin Trough Crossmatch 01/03/18 01/03/18 01/04/18 17:50 19:52 00:40 WBC RBC Hgb Hct MCV MCH MCHC RDW Plt Count Lymph % (Auto) Adams % (Auto) Eos % (Auto) Adams # Eos # Baso # Seg Neutrophils % Seg Neuts % (Manual) Lymphocytes % (Manual) Monocytes % (Manual) Eosinophils % (Manual) Nucleated RBC % Seg Neutrophils # Seg Neutrophils # Man Lymphocytes # (Manual) Monocytes # (Manual) Eosinophils # (Manual) APTT POC ABG pH ABG pH POC ABG pCO2 POC ABG pO2 ABG pO2 ABG HCO3 ABG O2 Saturation ABG Base Excess ABG Hemoglobin VBG pH Oxyhemoglobin Sodium Potassium Chloride Carbon Dioxide BUN Creatinine Glucose POC Glucose 157 H 147 H 158 H Lactic Acid Calcium Phosphorus Total Bilirubin AST ALT C-Reactive Protein Total Protein Albumin Triglycerides Amylase Lipase Urine WBC (Auto) Vancomycin Trough Crossmatch 01/04/18 01/04/18 01/04/18 04:01 05:13 06:12 WBC 11.5 H RBC 2.95 L Hgb 9.8 L Hct 29.5 L D MCV 100 H MCH 33 H MCHC RDW Plt Count Lymph % (Auto) Adams % (Auto) Eos % (Auto) Adams # Eos # Baso # Seg Neutrophils % Seg Neuts % (Manual) Lymphocytes % (Manual) Monocytes % (Manual) Eosinophils % (Manual) 6.0 H Nucleated RBC % Seg Neutrophils # Seg Neutrophils # Man Lymphocytes # (Manual) Monocytes # (Manual) Eosinophils # (Manual) 0.7 H APTT POC ABG pH ABG pH 7.498 H POC ABG pCO2 POC ABG pO2 ABG pO2 129.5 H ABG HCO3 30.1 H ABG O2 Saturation ABG Base Excess 6.4 H ABG Hemoglobin 9.3 L VBG pH Oxyhemoglobin Sodium Potassium Chloride Carbon Dioxide BUN Creatinine Glucose POC Glucose 163 H Lactic Acid Calcium Phosphorus Total Bilirubin AST ALT C-Reactive Protein Total Protein Albumin Triglycerides Amylase Lipase Urine WBC (Auto) Vancomycin Trough Crossmatch 01/04/18 01/04/18 01/04/18 06:12 10:55 14:29 WBC RBC Hgb Hct MCV MCH MCHC RDW Plt Count Lymph % (Auto) Adams % (Auto) Eos % (Auto) Adams # Eos # Baso # Seg Neutrophils % Seg Neuts % (Manual) Lymphocytes % (Manual) Monocytes % (Manual) Eosinophils % (Manual) Nucleated RBC % Seg Neutrophils # Seg Neutrophils # Man Lymphocytes # (Manual) Monocytes # (Manual) Eosinophils # (Manual) APTT POC ABG pH ABG pH POC ABG pCO2 POC ABG pO2 ABG pO2 ABG HCO3 ABG O2 Saturation ABG Base Excess ABG Hemoglobin VBG pH Oxyhemoglobin Sodium Potassium Chloride Carbon Dioxide BUN Creatinine 0.5 L Glucose 174 H POC Glucose 187 H 144 H Lactic Acid Calcium Phosphorus Total Bilirubin AST 41 H ALT C-Reactive Protein Total Protein Albumin 2.9 L Triglycerides Amylase Lipase Urine WBC (Auto) Vancomycin Trough Crossmatch 01/04/18 01/04/18 01/05/18 17:25 21:56 01:59 WBC RBC Hgb Hct MCV MCH MCHC RDW Plt Count Lymph % (Auto) Adams % (Auto) Eos % (Auto) Adams # Eos # Baso # Seg Neutrophils % Seg Neuts % (Manual) Lymphocytes % (Manual) Monocytes % (Manual) Eosinophils % (Manual) Nucleated RBC % Seg Neutrophils # Seg Neutrophils # Man Lymphocytes # (Manual) Monocytes # (Manual) Eosinophils # (Manual) APTT POC ABG pH ABG pH POC ABG pCO2 POC ABG pO2 ABG pO2 ABG HCO3 ABG O2 Saturation ABG Base Excess ABG Hemoglobin VBG pH Oxyhemoglobin Sodium Potassium Chloride Carbon Dioxide BUN Creatinine Glucose POC Glucose 156 H 171 H 162 H Lactic Acid Calcium Phosphorus Total Bilirubin AST ALT C-Reactive Protein Total Protein Albumin Triglycerides Amylase Lipase Urine WBC (Auto) Vancomycin Trough Crossmatch 01/05/18 01/05/18 01/05/18 03:50 06:00 06:07 WBC RBC Hgb Hct MCV MCH MCHC RDW Plt Count Lymph % (Auto) Adams % (Auto) Eos % (Auto) Adams # Eos # Baso # Seg Neutrophils % Seg Neuts % (Manual) Lymphocytes % (Manual) Monocytes % (Manual) Eosinophils % (Manual) Nucleated RBC % Seg Neutrophils # Seg Neutrophils # Man Lymphocytes # (Manual) Monocytes # (Manual) Eosinophils # (Manual) APTT POC ABG pH ABG pH POC ABG pCO2 POC ABG pO2 ABG pO2 64.6 L ABG HCO3 30.2 H ABG O2 Saturation 91.3 L ABG Base Excess 5.5 H ABG Hemoglobin 10.1 L VBG pH Oxyhemoglobin 89.0 L Sodium Potassium Chloride Carbon Dioxide BUN Creatinine 0.4 L Glucose 144 H POC Glucose 136 H Lactic Acid Calcium Phosphorus Total Bilirubin AST ALT C-Reactive Protein Total Protein Albumin Triglycerides Amylase Lipase Urine WBC (Auto) Vancomycin Trough Crossmatch 01/05/18 01/05/18 01/05/18 10:46 14:03 17:31 WBC RBC Hgb Hct MCV MCH MCHC RDW Plt Count Lymph % (Auto) Adams % (Auto) Eos % (Auto) Adams # Eos # Baso # Seg Neutrophils % Seg Neuts % (Manual) Lymphocytes % (Manual) Monocytes % (Manual) Eosinophils % (Manual) Nucleated RBC % Seg Neutrophils # Seg Neutrophils # Man Lymphocytes # (Manual) Monocytes # (Manual) Eosinophils # (Manual) APTT POC ABG pH ABG pH POC ABG pCO2 POC ABG pO2 ABG pO2 ABG HCO3 ABG O2 Saturation ABG Base Excess ABG Hemoglobin VBG pH Oxyhemoglobin Sodium Potassium Chloride Carbon Dioxide BUN Creatinine Glucose POC Glucose 147 H 141 H 192 H Lactic Acid Calcium Phosphorus Total Bilirubin AST ALT C-Reactive Protein Total Protein Albumin Triglycerides Amylase Lipase Urine WBC (Auto) Vancomycin Trough Crossmatch 01/05/18 01/05/18 01/06/18 22:12 Unknown 01:58 WBC RBC Hgb Hct MCV MCH MCHC RDW Plt Count Lymph % (Auto) Adams % (Auto) Eos % (Auto) Adams # Eos # Baso # Seg Neutrophils % Seg Neuts % (Manual) Lymphocytes % (Manual) Monocytes % (Manual) Eosinophils % (Manual) Nucleated RBC % Seg Neutrophils # Seg Neutrophils # Man Lymphocytes # (Manual) Monocytes # (Manual) Eosinophils # (Manual) APTT POC ABG pH ABG pH 7.463 H POC ABG pCO2 POC ABG pO2 ABG pO2 74.0 L ABG HCO3 29.4 H ABG O2 Saturation ABG Base Excess 5.2 H ABG Hemoglobin 10.0 L VBG pH Oxyhemoglobin 93.4 L Sodium Potassium Chloride Carbon Dioxide BUN Creatinine Glucose POC Glucose 209 H 138 H Lactic Acid Calcium Phosphorus Total Bilirubin AST ALT C-Reactive Protein Total Protein Albumin Triglycerides Amylase Lipase Urine WBC (Auto) Vancomycin Trough Crossmatch 01/06/18 01/06/18 01/06/18 03:14 05:30 05:30 WBC 12.6 H RBC 3.16 L Hgb 10.4 L Hct 31.7 L MCV 100 H MCH 33 H MCHC RDW 15.5 H Plt Count Lymph % (Auto) Adams % (Auto) Eos % (Auto) Adams # Eos # Baso # Seg Neutrophils % Seg Neuts % (Manual) 72.0 H Lymphocytes % (Manual) Monocytes % (Manual) 9.0 H Eosinophils % (Manual) Nucleated RBC % 1.0 H Seg Neutrophils # Seg Neutrophils # Man 9.1 H Lymphocytes # (Manual) Monocytes # (Manual) 1.1 H Eosinophils # (Manual) APTT POC ABG pH ABG pH POC ABG pCO2 POC ABG pO2 ABG pO2 ABG HCO3 28.8 H ABG O2 Saturation ABG Base Excess 4.2 H ABG Hemoglobin 9.3 L VBG pH Oxyhemoglobin 94.7 L Sodium 136 L Potassium Chloride 94.2 L Carbon Dioxide BUN Creatinine 0.4 L Glucose 146 H POC Glucose Lactic Acid Calcium Phosphorus Total Bilirubin AST ALT C-Reactive Protein Total Protein Albumin 3.1 L Triglycerides Amylase Lipase Urine WBC (Auto) Vancomycin Trough Crossmatch 01/06/18 01/06/18 01/06/18 05:42 10:00 14:40 WBC RBC Hgb Hct MCV MCH MCHC RDW Plt Count Lymph % (Auto) Adams % (Auto) Eos % (Auto) Adams # Eos # Baso # Seg Neutrophils % Seg Neuts % (Manual) Lymphocytes % (Manual) Monocytes % (Manual) Eosinophils % (Manual) Nucleated RBC % Seg Neutrophils # Seg Neutrophils # Man Lymphocytes # (Manual) Monocytes # (Manual) Eosinophils # (Manual) APTT POC ABG pH ABG pH POC ABG pCO2 POC ABG pO2 ABG pO2 ABG HCO3 ABG O2 Saturation ABG Base Excess ABG Hemoglobin VBG pH Oxyhemoglobin Sodium Potassium Chloride Carbon Dioxide BUN Creatinine Glucose POC Glucose 158 H 155 H 115 H Lactic Acid Calcium Phosphorus Total Bilirubin AST ALT C-Reactive Protein Total Protein Albumin Triglycerides Amylase Lipase Urine WBC (Auto) Vancomycin Trough Crossmatch 01/06/18 01/06/18 01/07/18 17:45 21:59 05:29 WBC RBC Hgb Hct MCV MCH MCHC RDW Plt Count Lymph % (Auto) [place] % (Auto) Eos % (Auto) [place] # Eos # Baso # Seg Neutrophils % Seg Neuts % (Manual) Lymphocytes % (Manual) Monocytes % (Manual) Eosinophils % (Manual) Nucleated RBC % Seg Neutrophils # Seg Neutrophils # Man Lymphocytes # (Manual) Monocytes # (Manual) Eosinophils # (Manual) APTT POC ABG pH ABG pH POC ABG pCO2 POC ABG pO2 ABG pO2 ABG HCO3 ABG O2 Saturation ABG Base Excess ABG Hemoglobin VBG pH Oxyhemoglobin Sodium Potassium Chloride Carbon Dioxide BUN Creatinine Glucose POC Glucose 156 H 177 H 179 H Lactic Acid Calcium Phosphorus Total Bilirubin AST ALT C-Reactive Protein Total Protein Albumin Triglycerides Amylase Lipase Urine WBC (Auto) Vancomycin Trough Crossmatch 01/07/18 01/07/18 01/07/18 10:00 14:32 18:05 WBC RBC Hgb Hct MCV MCH MCHC RDW Plt Count Lymph % (Auto) [place] % (Auto) Eos % (Auto) [place] # Eos # Baso # Seg Neutrophils % Seg Neuts % (Manual) Lymphocytes % (Manual) Monocytes % (Manual) Eosinophils % (Manual) Nucleated RBC % Seg Neutrophils # Seg Neutrophils # Man Lymphocytes # (Manual) Monocytes # (Manual) Eosinophils # (Manual) APTT POC ABG pH ABG pH POC ABG pCO2 POC ABG pO2 ABG pO2 ABG HCO3 ABG O2 Saturation ABG Base Excess ABG Hemoglobin VBG pH Oxyhemoglobin Sodium Potassium Chloride Carbon Dioxide BUN Creatinine Glucose POC Glucose 131 H 177 H 143 H Lactic Acid Calcium Phosphorus Total Bilirubin AST ALT C-Reactive Protein Total Protein Albumin Triglycerides Amylase Lipase Urine WBC (Auto) Vancomycin Trough Crossmatch 01/07/18 01/08/18 01/08/18 22:11 02:26 05:37 WBC RBC Hgb Hct MCV MCH MCHC RDW Plt Count Lymph % (Auto) [place] % (Auto) Eos % (Auto) [place] # Eos # Baso # Seg Neutrophils % Seg Neuts % (Manual) Lymphocytes % (Manual) Monocytes % (Manual) Eosinophils % (Manual) Nucleated RBC % Seg Neutrophils # Seg Neutrophils # Man Lymphocytes # (Manual) Monocytes # (Manual) Eosinophils # (Manual) APTT POC ABG pH ABG pH POC ABG pCO2 POC ABG pO2 ABG pO2 ABG HCO3 ABG O2 Saturation ABG Base Excess ABG Hemoglobin VBG pH Oxyhemoglobin Sodium Potassium Chloride Carbon Dioxide BUN Creatinine Glucose POC Glucose 133 H 194 H 106 H Lactic Acid Calcium Phosphorus Total Bilirubin AST ALT C-Reactive Protein Total Protein Albumin Triglycerides Amylase Lipase Urine WBC (Auto) Vancomycin Trough Crossmatch 01/08/18 01/08/18 01/08/18 09:41 10:45 10:45 WBC 11.6 H RBC 3.21 L Hgb 10.5 L Hct 32.0 L MCV 100 H MCH 33 H MCHC RDW 15.7 H Plt Count Lymph % (Auto) [place] % (Auto) Eos % (Auto) [place] # Eos # Baso # Seg Neutrophils % Seg Neuts % (Manual) Lymphocytes % (Manual) Monocytes % (Manual) Eosinophils % (Manual) Nucleated RBC % Seg Neutrophils # Seg Neutrophils # Man Lymphocytes # (Manual) Monocytes # (Manual) Eosinophils # (Manual) APTT POC ABG pH ABG pH POC ABG pCO2 POC ABG pO2 ABG pO2 ABG HCO3 ABG O2 Saturation ABG Base Excess ABG Hemoglobin VBG pH Oxyhemoglobin Sodium Potassium Chloride 96.4 L Carbon Dioxide BUN Creatinine 0.4 L Glucose 146 H POC Glucose 142 H Lactic Acid Calcium Phosphorus Total Bilirubin AST ALT C-Reactive Protein Total Protein Albumin Triglycerides Amylase Lipase Urine WBC (Auto) Vancomycin Trough Crossmatch 01/08/18 01/08/18 01/08/18 14:31 17:20 21:46 WBC RBC Hgb Hct MCV MCH MCHC RDW Plt Count Lymph % (Auto) [place] % (Auto) Eos % (Auto) [place] # Eos # Baso # Seg Neutrophils % Seg Neuts % (Manual) Lymphocytes % (Manual) Monocytes % (Manual) Eosinophils % (Manual) Nucleated RBC % Seg Neutrophils # Seg Neutrophils # Man Lymphocytes # (Manual) Monocytes # (Manual) Eosinophils # (Manual) APTT POC ABG pH ABG pH POC ABG pCO2 POC ABG pO2 ABG pO2 ABG HCO3 ABG O2 Saturation ABG Base Excess ABG Hemoglobin VBG pH Oxyhemoglobin Sodium Potassium Chloride Carbon Dioxide BUN Creatinine Glucose POC Glucose 158 H 160 H 166 H Lactic Acid Calcium Phosphorus Total Bilirubin AST ALT C-Reactive Protein Total Protein Albumin Triglycerides Amylase Lipase Urine WBC (Auto) Vancomycin Trough Crossmatch 01/09/18 01/09/18 01/09/18 02:01 04:30 04:30 WBC RBC 3.21 L Hgb 10.9 L Hct 31.7 L MCV 99 H MCH 34 H MCHC RDW 15.8 H Plt Count Lymph % (Auto) [place] % (Auto) Eos % (Auto) [place] # Eos # Baso # Seg Neutrophils % Seg Neuts % (Manual) Lymphocytes % (Manual) Monocytes % (Manual) Eosinophils % (Manual) Nucleated RBC % Seg Neutrophils # Seg Neutrophils # Man Lymphocytes # (Manual) Monocytes # (Manual) Eosinophils # (Manual) APTT POC ABG pH ABG pH POC ABG pCO2 POC ABG pO2 ABG pO2 ABG HCO3 ABG O2 Saturation ABG Base Excess ABG Hemoglobin VBG pH Oxyhemoglobin Sodium 135 L Potassium Chloride 93.8 L Carbon Dioxide BUN Creatinine 0.5 L Glucose 137 H POC Glucose 155 H Lactic Acid Calcium Phosphorus Total Bilirubin AST ALT C-Reactive Protein Total Protein Albumin Triglycerides Amylase Lipase Urine WBC (Auto) Vancomycin Trough Crossmatch 01/09/18 01/09/18 01/09/18 05:42 10:41 14:01 WBC RBC Hgb Hct MCV MCH MCHC RDW Plt Count Lymph % (Auto) [place] % (Auto) Eos % (Auto) [place] # Eos # Baso # Seg Neutrophils % Seg Neuts % (Manual) Lymphocytes % (Manual) Monocytes % (Manual) Eosinophils % (Manual) Nucleated RBC % Seg Neutrophils # Seg Neutrophils # Man Lymphocytes # (Manual) Monocytes # (Manual) Eosinophils # (Manual) APTT POC ABG pH ABG pH POC ABG pCO2 POC ABG pO2 ABG pO2 ABG HCO3 ABG O2 Saturation ABG Base Excess ABG Hemoglobin VBG pH Oxyhemoglobin Sodium Potassium Chloride Carbon Dioxide BUN Creatinine Glucose POC Glucose 142 H 187 H 138 H Lactic Acid Calcium Phosphorus Total Bilirubin AST ALT C-Reactive Protein Total Protein Albumin Triglycerides Amylase Lipase Urine WBC (Auto) Vancomycin Trough Crossmatch 01/09/18 01/09/18 01/10/18 18:09 21:09 02:06 WBC RBC Hgb Hct MCV MCH MCHC RDW Plt Count Lymph % (Auto) [place] % (Auto) Eos % (Auto) [place] # Eos # Baso # Seg Neutrophils % Seg Neuts % (Manual) Lymphocytes % (Manual) Monocytes % (Manual) Eosinophils % (Manual) Nucleated RBC % Seg Neutrophils # Seg Neutrophils # Man Lymphocytes # (Manual) Monocytes # (Manual) Eosinophils # (Manual) APTT POC ABG pH ABG pH POC ABG pCO2 POC ABG pO2 ABG pO2 ABG HCO3 ABG O2 Saturation ABG Base Excess ABG Hemoglobin VBG pH Oxyhemoglobin Sodium Potassium Chloride Carbon Dioxide BUN Creatinine Glucose POC Glucose 143 H 188 H 160 H Lactic Acid Calcium Phosphorus Total Bilirubin AST ALT C-Reactive Protein Total Protein Albumin Triglycerides Amylase Lipase Urine WBC (Auto) Vancomycin Trough Crossmatch 01/10/18 01/10/18 01/10/18 05:58 09:54 13:58 WBC RBC Hgb Hct MCV MCH MCHC RDW Plt Count Lymph % (Auto) [place] % (Auto) Eos % (Auto) [place] # Eos # Baso # Seg Neutrophils % Seg Neuts % (Manual) Lymphocytes % (Manual) Monocytes % (Manual) Eosinophils % (Manual) Nucleated RBC % Seg Neutrophils # Seg Neutrophils # Man Lymphocytes # (Manual) Monocytes # (Manual) Eosinophils # (Manual) APTT POC ABG pH ABG pH POC ABG pCO2 POC ABG pO2 ABG pO2 ABG HCO3 ABG O2 Saturation ABG Base Excess ABG Hemoglobin VBG pH Oxyhemoglobin Sodium Potassium Chloride Carbon Dioxide BUN Creatinine Glucose POC Glucose 134 H 162 H 152 H Lactic Acid Calcium Phosphorus Total Bilirubin AST ALT C-Reactive Protein Total Protein Albumin Triglycerides Amylase Lipase Urine WBC (Auto) Vancomycin Trough Crossmatch 01/10/18 01/10/18 01/11/18 16:56 21:57 02:22 WBC RBC Hgb Hct MCV MCH MCHC RDW Plt Count Lymph % (Auto) [place] % (Auto) Eos % (Auto) [place] # Eos # Baso # Seg Neutrophils % Seg Neuts % (Manual) Lymphocytes % (Manual) Monocytes % (Manual) Eosinophils % (Manual) Nucleated RBC % Seg Neutrophils # Seg Neutrophils # Man Lymphocytes # (Manual) Monocytes # (Manual) Eosinophils # (Manual) APTT POC ABG pH ABG pH POC ABG pCO2 POC ABG pO2 ABG pO2 ABG HCO3 ABG O2 Saturation ABG Base Excess ABG Hemoglobin VBG pH Oxyhemoglobin Sodium Potassium Chloride Carbon Dioxide BUN Creatinine Glucose POC Glucose 161 H 161 H 159 H Lactic Acid Calcium Phosphorus Total Bilirubin AST ALT C-Reactive Protein Total Protein Albumin Triglycerides Amylase Lipase Urine WBC (Auto) Vancomycin Trough Crossmatch 01/11/18 01/11/18 01/11/18 06:19 10:23 11:21 WBC 12.7 H RBC 3.50 L Hgb 11.5 L Hct 34.8 L MCV 99 H MCH 33 H MCHC RDW Plt Count Lymph % (Auto) [place] % (Auto) Eos % (Auto) [place] # Eos # Baso # Seg Neutrophils % Seg Neuts % (Manual) Lymphocytes % (Manual) Monocytes % (Manual) Eosinophils % (Manual) Nucleated RBC % Seg Neutrophils # Seg Neutrophils # Man Lymphocytes # (Manual) Monocytes # (Manual) Eosinophils # (Manual) APTT POC ABG pH ABG pH POC ABG pCO2 POC ABG pO2 ABG pO2 ABG HCO3 ABG O2 Saturation ABG Base Excess ABG Hemoglobin VBG pH Oxyhemoglobin Sodium Potassium Chloride Carbon Dioxide BUN Creatinine Glucose POC Glucose 174 H 172 H Lactic Acid Calcium Phosphorus Total Bilirubin AST ALT C-Reactive Protein Total Protein Albumin Triglycerides Amylase Lipase Urine WBC (Auto) Vancomycin Trough Crossmatch 01/11/18 01/11/18 01/11/18 11:21 14:00 17:19 WBC RBC Hgb Hct MCV MCH MCHC RDW Plt Count Lymph % (Auto) [place] % (Auto) Eos % (Auto) [place] # Eos # Baso # Seg Neutrophils % Seg Neuts % (Manual) Lymphocytes % (Manual) Monocytes % (Manual) Eosinophils % (Manual) Nucleated RBC % Seg Neutrophils # Seg Neutrophils # Man Lymphocytes # (Manual) Monocytes # (Manual) Eosinophils # (Manual) APTT POC ABG pH ABG pH POC ABG pCO2 POC ABG pO2 ABG pO2 ABG HCO3 ABG O2 Saturation ABG Base Excess ABG Hemoglobin VBG pH Oxyhemoglobin Sodium 133 L Potassium Chloride 92.9 L Carbon Dioxide BUN Creatinine 0.4 L Glucose 156 H POC Glucose 152 H 177 H Lactic Acid Calcium Phosphorus Total Bilirubin AST ALT C-Reactive Protein Total Protein Albumin Triglycerides Amylase Lipase Urine WBC (Auto) Vancomycin Trough Crossmatch 01/11/18 01/12/18 01/12/18 22:20 02:09 05:50 WBC RBC Hgb Hct MCV MCH MCHC RDW Plt Count Lymph % (Auto) [place] % (Auto) Eos % (Auto) [place] # Eos # Baso # Seg Neutrophils % Seg Neuts % (Manual) Lymphocytes % (Manual) Monocytes % (Manual) Eosinophils % (Manual) Nucleated RBC % Seg Neutrophils # Seg Neutrophils # Man Lymphocytes # (Manual) Monocytes # (Manual) Eosinophils # (Manual) APTT POC ABG pH ABG pH POC ABG pCO2 POC ABG pO2 ABG pO2 ABG HCO3 ABG O2 Saturation ABG Base Excess ABG Hemoglobin VBG pH Oxyhemoglobin Sodium Potassium Chloride Carbon Dioxide BUN Creatinine Glucose POC Glucose 208 H 179 H 165 H Lactic Acid Calcium Phosphorus Total Bilirubin AST ALT C-Reactive Protein Total Protein Albumin Triglycerides Amylase Lipase Urine WBC (Auto) Vancomycin Trough Crossmatch 01/12/18 01/12/18 01/12/18 09:31 13:23 17:35 WBC RBC Hgb Hct MCV MCH MCHC RDW Plt Count Lymph % (Auto) [place] % (Auto) Eos % (Auto) [place] # Eos # Baso # Seg Neutrophils % Seg Neuts % (Manual) Lymphocytes % (Manual) Monocytes % (Manual) Eosinophils % (Manual) Nucleated RBC % Seg Neutrophils # Seg Neutrophils # Man Lymphocytes # (Manual) Monocytes # (Manual) Eosinophils # (Manual) APTT POC ABG pH ABG pH POC ABG pCO2 POC ABG pO2 ABG pO2 ABG HCO3 ABG O2 Saturation ABG Base Excess ABG Hemoglobin VBG pH Oxyhemoglobin Sodium Potassium Chloride Carbon Dioxide BUN Creatinine Glucose POC Glucose 142 H 138 H 172 H Lactic Acid Calcium Phosphorus Total Bilirubin AST ALT C-Reactive Protein Total Protein Albumin Triglycerides Amylase Lipase Urine WBC (Auto) Vancomycin Trough Crossmatch 01/12/18 01/13/1818 22:03 01:56 05:00 WBC RBC 3.50 L Hgb Hct 34.1 L MCV 98 H MCH 34 H MCHC 35 H RDW Plt Count Lymph % (Auto) [place] % (Auto) Eos % (Auto) [place] # Eos # Baso # Seg Neutrophils % Seg Neuts % (Manual) Lymphocytes % (Manual) Monocytes % (Manual) Eosinophils % (Manual) Nucleated RBC % Seg Neutrophils # Seg Neutrophils # Man Lymphocytes # (Manual) Monocytes # (Manual) Eosinophils # (Manual) APTT POC ABG pH ABG pH POC ABG pCO2 POC ABG pO2 ABG pO2 ABG HCO3 ABG O2 Saturation ABG Base Excess ABG Hemoglobin VBG pH Oxyhemoglobin Sodium Potassium Chloride Carbon Dioxide BUN Creatinine Glucose POC Glucose 166 H 129 H Lactic Acid Calcium Phosphorus Total Bilirubin AST ALT C-Reactive Protein Total Protein Albumin Triglycerides Amylase Lipase Urine WBC (Auto) Vancomycin Trough Crossmatch 01/13/18 01/13/18 01/13/18 05:00 05:06 09:44 WBC RBC Hgb Hct MCV MCH MCHC RDW Plt Count Lymph % (Auto) [place] % (Auto) Eos % (Auto) [place] # Eos # Baso # Seg Neutrophils % Seg Neuts % (Manual) Lymphocytes % (Manual) Monocytes % (Manual) Eosinophils % (Manual) Nucleated RBC % Seg Neutrophils # Seg Neutrophils # Man Lymphocytes # (Manual) Monocytes # (Manual) Eosinophils # (Manual) APTT POC ABG pH ABG pH POC ABG pCO2 POC ABG pO2 ABG pO2 ABG HCO3 ABG O2 Saturation ABG Base Excess ABG Hemoglobin VBG pH Oxyhemoglobin Sodium 136 L Potassium Chloride 95.5 L Carbon Dioxide BUN Creatinine 0.4 L Glucose 165 H POC Glucose 188 H 132 H Lactic Acid Calcium Phosphorus Total Bilirubin AST ALT C-Reactive Protein Total Protein Albumin Triglycerides Amylase Lipase Urine WBC (Auto) Vancomycin Trough Crossmatch 01/13/18 01/13/18 01/13/18 13:53 18:06 21:26 WBC RBC Hgb Hct MCV MCH MCHC RDW Plt Count Lymph % (Auto) [place] % (Auto) Eos % (Auto) [place] # Eos # Baso # Seg Neutrophils % Seg Neuts % (Manual) Lymphocytes % (Manual) Monocytes % (Manual) Eosinophils % (Manual) Nucleated RBC % Seg Neutrophils # Seg Neutrophils # Man Lymphocytes # (Manual) Monocytes # (Manual) Eosinophils # (Manual) APTT POC ABG pH ABG pH POC ABG pCO2 POC ABG pO2 ABG pO2 ABG HCO3 ABG O2 Saturation ABG Base Excess ABG Hemoglobin VBG pH Oxyhemoglobin Sodium Potassium Chloride Carbon Dioxide BUN Creatinine Glucose POC Glucose 137 H 142 H 129 H Lactic Acid Calcium Phosphorus Total Bilirubin AST ALT C-Reactive Protein Total Protein Albumin Triglycerides Amylase Lipase Urine WBC (Auto) Vancomycin Trough Crossmatch 01/14/18 01/14/18 01/14/18 04:30 04:30 05:31 WBC 16.5 H RBC 3.55 L Hgb 11.7 L Hct 35.1 L MCV 99 H MCH 33 H MCHC RDW 15.4 H Plt Count Lymph % (Auto) [place] % (Auto) Eos % (Auto) [place] # Eos # Baso # Seg Neutrophils % Seg Neuts % (Manual) Lymphocytes % (Manual) Monocytes % (Manual) Eosinophils % (Manual) Nucleated RBC % Seg Neutrophils # Seg Neutrophils # Man Lymphocytes # (Manual) Monocytes # (Manual) Eosinophils # (Manual) APTT POC ABG pH ABG pH POC ABG pCO2 POC ABG pO2 ABG pO2 ABG HCO3 ABG O2 Saturation ABG Base Excess ABG Hemoglobin VBG pH Oxyhemoglobin Sodium Potassium Chloride 93.8 L Carbon Dioxide BUN Creatinine 0.5 L Glucose POC Glucose 119 H Lactic Acid Calcium Phosphorus Total Bilirubin AST ALT C-Reactive Protein Total Protein Albumin Triglycerides Amylase Lipase Urine WBC (Auto) Vancomycin Trough Crossmatch 01/14/18 01/14/18 01/14/18 10:08 17:27 22:07 WBC RBC Hgb Hct MCV MCH MCHC RDW Plt Count Lymph % (Auto) [place] % (Auto) Eos % (Auto) [place] # Eos # Baso # Seg Neutrophils % Seg Neuts % (Manual) Lymphocytes % (Manual) Monocytes % (Manual) Eosinophils % (Manual) Nucleated RBC % Seg Neutrophils # Seg Neutrophils # Man Lymphocytes # (Manual) Monocytes # (Manual) Eosinophils # (Manual) APTT POC ABG pH ABG pH POC ABG pCO2 POC ABG pO2 ABG pO2 ABG HCO3 ABG O2 Saturation ABG Base Excess ABG Hemoglobin VBG pH Oxyhemoglobin Sodium Potassium Chloride Carbon Dioxide BUN Creatinine Glucose POC Glucose 119 H 113 H 138 H Lactic Acid Calcium Phosphorus Total Bilirubin AST ALT C-Reactive Protein Total Protein Albumin Triglycerides Amylase Lipase Urine WBC (Auto) Vancomycin Trough Crossmatch 01/15/18 01/15/18 01/15/18 02:12 05:36 08:02 WBC 12.8 H RBC 3.41 L Hgb 11.1 L Hct 33.6 L MCV 99 H MCH 33 H MCHC RDW Plt Count Lymph % (Auto) [place] % (Auto) 7.8 H Eos % (Auto) Adams # 1.0 H Eos # Baso # Seg Neutrophils % 72.8 H Seg Neuts % (Manual) Lymphocytes % (Manual) Monocytes % (Manual) Eosinophils % (Manual) Nucleated RBC % Seg Neutrophils # 9.3 H Seg Neutrophils # Man Lymphocytes # (Manual) Monocytes # (Manual) Eosinophils # (Manual) APTT POC ABG pH ABG pH POC ABG pCO2 POC ABG pO2 ABG pO2 ABG HCO3 ABG O2 Saturation ABG Base Excess ABG Hemoglobin VBG pH Oxyhemoglobin Sodium Potassium Chloride Carbon Dioxide BUN Creatinine Glucose POC Glucose 147 H 138 H Lactic Acid Calcium Phosphorus Total Bilirubin AST ALT C-Reactive Protein Total Protein Albumin Triglycerides Amylase Lipase Urine WBC (Auto) Vancomycin Trough Crossmatch 01/15/18 01/15/18 08:02 10:05 WBC RBC Hgb Hct MCV MCH MCHC RDW Plt Count Lymph % (Auto) [place] % (Auto) Eos % (Auto) [place] # Eos # Baso # Seg Neutrophils % Seg Neuts % (Manual) Lymphocytes % (Manual) Monocytes % (Manual) Eosinophils % (Manual) Nucleated RBC % Seg Neutrophils # Seg Neutrophils # Man Lymphocytes # (Manual) Monocytes # (Manual) Eosinophils # (Manual) APTT POC ABG pH ABG pH POC ABG pCO2 POC ABG pO2 ABG pO2 ABG HCO3 ABG O2 Saturation ABG Base Excess ABG Hemoglobin VBG pH Oxyhemoglobin Sodium 136 L Potassium Chloride 94.9 L Carbon Dioxide BUN Creatinine 0.4 L Glucose 142 H POC Glucose 136 H Lactic Acid Calcium Phosphorus Total Bilirubin AST ALT C-Reactive Protein Total Protein Albumin Triglycerides Amylase Lipase Urine WBC (Auto) Vancomycin Trough Crossmatch Chest x-ray: report reviewed, image reviewed
[2018-01-15] MEDS: LANTUS SUB-Q SCH (10:50)
--- NOTE | 2018-01-15 12:16 | Progress Note ---
Assessment and Plan Acute hypoxic respiratory failure - suspected due to ARDS/aspiration pneumonia: - pulmonary following and recommended tracheostomy and PEG as he is not a good candidate to wean vent. But refused - tolerated CPAP trial, extubated today, cont frequent suction, nebs, Suspected ARDS: - Pulmonology is following, off vent now - CXR showing improvement Sepsis, Etiology most likely complicated H influenza bacteremia +/- pneumonia: - treated with IV antibiotics, - ID signed off, appreciate recommendation Alcohol abuse: cont thiamine, folate, taper librium Hypotension resolved with ivfs and iv steroids Thrombocytopenia, - severe most likely due to sepsis: now stable Hypernatremia - improved with free water with TF and hypotonic iv fluid hypokalemia, replaced DM type 2- cont long acting and SSI, lentus to 26 unit daily Moderate to Severe protein calorie malnutrition; nutrition supplements, tube feeding. Anemia; s/p 1 Unit PRBC this admission. DVT prophylaxis: scd and lovenox Brief History: Patient is a 47 yo man with a history of tobacco dependency, alcohol abuse, dm type 2, hypertension and asthma who presented to [facility] ED with SOB and found to be severely hypoxic, failed bipap and was intubated. There is report of n/v during and after intubation. Hospitalist Physical GEN: Ill-appearing HEENT: NCAT, pupils react, NG tube in place NECK: supple, CVS/HEART:regular, NORMAL S1S2, pulses present bilaterally CHEST/LUNGS: Symmetrical chest expansion, coarse BS bilaterally GI/Abdomen: soft, distended, good bowel sounds, no guarding or rebound /Bladder: condom cath in place EXT/Skin: no edema MSK: no joint effusion or tenderness Neuro: eyes wide open, follow commend Psych: cooperative Subjective Date of service: 01/15/18 Principal diagnosis: ARDS,Respiratory failure,pneumonia Interval history: Pt seen and examined extubated today Still on tube feeding Objective - Constitutional Vitals: Vital Signs - 12hr 01/15/18 01/15/18 01/15/18 01:00 02:00 03:00 Temperature Pulse Rate 78 81 87 Pulse Rate [ Anterior Bilateral Throughout] Pulse Rate [ From Monitor] Respiratory 18 22 15 Rate Respiratory Rate [Anterior Bilateral Throughout] Blood Pressure 127/85 113/67 118/63 O2 Sat by Pulse 97 96 97 Oximetry 01/15/18 01/15/18 01/15/18 03:46 04:00 05:00 Temperature 98.8 F Pulse Rate 85 87 Pulse Rate [ Anterior Bilateral Throughout] Pulse Rate [ From Monitor] Respiratory 21 20 Rate Respiratory Rate [Anterior Bilateral Throughout] Blood Pressure 128/76 132/84 O2 Sat by Pulse 100 100 Oximetry 01/15/18 01/15/18 01/15/18 06:00 07:00 08:00 Temperature 98 F Pulse Rate 89 87 91 H Pulse Rate [ 90 Anterior Bilateral Throughout] Pulse Rate [ 91 H From Monitor] Respiratory 20 16 20 Rate Respiratory 22 Rate [Anterior Bilateral Throughout] Blood Pressure 130/81 139/82 135/87 O2 Sat by Pulse 98 99 100 Oximetry 01/15/18 01/15/18 01/15/18 09:00 10:00 10:13 Temperature Pulse Rate 90 92 H 96 H Pulse Rate [ Anterior Bilateral Throughout] Pulse Rate [ 92 H From Monitor] Respiratory 23 18 Rate Respiratory Rate [Anterior Bilateral Throughout] Blood Pressure 125/83 118/79 118/79 O2 Sat by Pulse 100 Oximetry 01/15/18 01/15/18 11:00 12:00 Temperature Pulse Rate 88 89 Pulse Rate [ Anterior Bilateral Throughout] Pulse Rate [ From Monitor] Respiratory 20 19 Rate Respiratory Rate [Anterior Bilateral Throughout] Blood Pressure 119/84 136/80 O2 Sat by Pulse 97 99 Oximetry - Labs CBC & Chem 7: 01/15/18 08:02 01/15/18 08:02 Labs: Abnormal lab results 01/14/18 01/14/18 01/15/18 Range/Units 17:27 22:07 02:12 WBC (4.5-11.0) K/mm3 RBC (3.65-5.03) M/mm3 Hgb (11.8-15.2) gm/dl Hct (35.5-45.6) % MCV (84-94) fl MCH (28-32) pg [place] % (Auto) (0.0-7.3) % [place] # (0.0-0.8) K/mm3 Seg Neutrophils % (40.0-70.0) % Seg Neutrophils # (1.8-7.7) K/mm3 Sodium (137-145) mmol/L Chloride (98-107) mmol/L Creatinine (0.8-1.5) mg/dL Glucose (75-100) mg/dL POC Glucose 113 H 138 H 147 H (70-105) 01/15/18 01/15/18 01/15/18 Range/Units 05:36 08:02 08:02 WBC 12.8 H (4.5-11.0) K/mm3 RBC 3.41 L (3.65-5.03) M/mm3 Hgb 11.1 L (11.8-15.2) gm/dl Hct 33.6 L (35.5-45.6) % MCV 99 H (84-94) fl MCH 33 H (28-32) pg [place] % (Auto) 7.8 H (0.0-7.3) % [place] # 1.0 H (0.0-0.8) K/mm3 Seg Neutrophils % 72.8 H (40.0-70.0) % Seg Neutrophils # 9.3 H (1.8-7.7) K/mm3 Sodium 136 L (137-145) mmol/L Chloride 94.9 L (98-107) mmol/L Creatinine 0.4 L (0.8-1.5) mg/dL Glucose 142 H (75-100) mg/dL POC Glucose 138 H (70-105) 01/15/18 Range/Units 10:05 WBC (4.5-11.0) K/mm3 RBC (3.65-5.03) M/mm3 Hgb (11.8-15.2) gm/dl Hct (35.5-45.6) % MCV (84-94) fl MCH (28-32) pg [place] % (Auto) (0.0-7.3) % [place] # (0.0-0.8) K/mm3 Seg Neutrophils % (40.0-70.0) % Seg Neutrophils # (1.8-7.7) K/mm3 Sodium (137-145) mmol/L Chloride (98-107) mmol/L Creatinine (0.8-1.5) mg/dL Glucose (75-100) mg/dL POC Glucose 136 H (70-105)
--- NOTE | 2018-01-15 21:01 | XRay Report ---
FINAL REPORT EXAM: XR ABDOMEN 1V AP HISTORY: dobhoff placement TECHNIQUE: Single AP view of the upper abdomen tube placement PRIORS: Comparison is dated January 14, 2018 FINDINGS: The feeding tube is been repositioned. It has been retracted in the tip now lies just at the gastroesophageal junction. Suggest advancement. IMPRESSION: Feeding tube with tip at the gastroesophageal junction. Suggest advancement
--- NOTE | 2018-01-15 22:55 | XRay Report ---
FINAL REPORT EXAM: XR ABDOMEN 1V AP HISTORY: dobhoff placement. TECHNIQUE: Supine upright abdomen for tube placement PRIORS: None. FINDINGS: There has been advancement the Dobhoff tube. Distal end now overlies the region of the body of the stomach just to the left of midline. Bowel gas pattern is nonspecific. There is air within scattered nondistended small bowel loops may reflect mild ileus IMPRESSION: Dobhoff tube has been advanced tip now overlies approximately the mid body of the stomach Nonspecific bowel gas pattern
[2018-01-15] MEDS: LOVENOX SUB-Q SCH (23:13)
[2018-01-16] MEDS: HumaLOG SUB-Q SCH ×7 (02:28→22:43)
[2018-01-16] MEDS: DUONEB *Not for PRN Use IH SCH ×3 (09:31→19:47)
[2018-01-16] MEDS: PEPCID PO SCH ×2 (10:35→22:42)
[2018-01-16] MEDS: LOPRESSOR PO SCH ×2 (10:35→22:42)
[2018-01-16] MEDS: FOLVITE FEEDTUBE SCH (10:35)
[2018-01-16] MEDS: LIBRIUM PO SCH ×3 (10:36→23:42)
[2018-01-16] MEDS: POTASSIUM CHLORIDE PO SCH (10:36)
[2018-01-16] MEDS: VITAMIN B-1 PO SCH (10:36)
[2018-01-16] MEDS: SODIUM CHLORIDE FLUSH SYRINGE 10 ML IV SCH ×2 (10:38→22:58)
[2018-01-16] MEDS: LANTUS SUB-Q SCH (11:55)
[2018-01-16] MEDS: TYLENOL PO PRN (13:57)
--- NOTE | 2018-01-16 14:34 | Progress Note ---
Assessment and Plan Acute hypoxic respiratory failure - suspected due to ARDS/aspiration pneumonia: - pulmonary following and required prolong intubation - s/p extubated on 01/15, cont frequent suction, nebs, Suspected ARDS: - Pulmonology is following, off vent now - CXR showing improvement Sepsis, Etiology most likely complicated H influenza bacteremia +/- pneumonia: - treated with IV antibiotics, - ID signed off, appreciate recommendation Alcohol abuse: cont thiamine, folate, taper librium Hypotension resolved with ivfs and iv steroids Thrombocytopenia, - severe most likely due to sepsis: now stable Hypernatremia - improved with free water with TF and hypotonic iv fluid hypokalemia, replaced DM type 2- cont long acting and SSI, lentus to 26 unit daily Moderate to Severe protein calorie malnutrition; nutrition supplements, tube feeding. will start on oral diet after speech eval Anemia; s/p 1 Unit PRBC this admission. DVT prophylaxis: scd and lovenox Disposition: Home with family support Brief History: Patient is a 47 yo man with a history of tobacco dependency, alcohol abuse, dm type 2, hypertension and asthma who presented to [facility] ED with SOB and found to be severely hypoxic, failed bipap and was intubated. There is report of n/v during and after intubation. Hospitalist Physical GEN: no distress, HEENT: NCAT, pupils react, NG tube in place NECK: supple, CVS/HEART:regular, NORMAL S1S2, pulses present bilaterally CHEST/LUNGS: Symmetrical chest expansion, coarse BS bilaterally GI/Abdomen: soft, distended, good bowel sounds, no guarding or rebound EXT/Skin: no edema MSK: no joint effusion or tenderness Neuro: eyes wide open, follow commend, speaks fluently Psych: cooperative Subjective Date of service: 01/16/18 Principal diagnosis: ARDS,Respiratory failure,pneumonia Interval history: Pt seen and examined extubated 01/15/18 Still on tube feeding, ordered speech eval will transfer to telemetry today Objective - Constitutional Vitals: Vital Signs - 12hr 01/16/18 01/16/18 01/16/18 03:00 03:48 04:00 Temperature 97.6 F Pulse Rate 89 90 Pulse Rate [ 98 H From Monitor] Respiratory 22 29 H Rate Blood Pressure 128/80 116/83 O2 Sat by Pulse 98 98 Oximetry 01/16/18 01/16/18 01/16/18 05:01 06:00 07:00 Temperature Pulse Rate 94 H 94 H 99 H Pulse Rate [ From Monitor] Respiratory 16 35 H 33 H Rate Blood Pressure 114/79 126/82 131/75 O2 Sat by Pulse 93 90 95 Oximetry 01/16/18 01/16/18 01/16/18 08:00 09:00 10:00 Temperature 99.6 F Pulse Rate 117 H 113 H 117 H Pulse Rate [ From Monitor] Respiratory 52 H 51 H 18 Rate Blood Pressure 124/78 113/80 125/85 O2 Sat by Pulse 90 94 Oximetry 01/16/18 01/16/18 01/16/18 10:35 11:00 12:00 Temperature 100.5 F H Pulse Rate 117 H 104 H 96 H Pulse Rate [ From Monitor] Respiratory 33 H 22 Rate Blood Pressure 109/81 132/90 O2 Sat by Pulse 92 95 Oximetry 01/16/18 01/16/18 13:00 14:00 Temperature Pulse Rate 95 H 98 H Pulse Rate [ From Monitor] Respiratory 21 20 Rate Blood Pressure 123/85 129/86 O2 Sat by Pulse 98 100 Oximetry - Labs CBC & Chem 7: 01/15/18 08:02 01/15/18 08:02 Labs: Abnormal lab results 01/15/18 01/15/18 01/15/18 Range/Units 12:06 14:16 21:59 POC Glucose 133 H 123 H 134 H (70-105) 01/16/18 01/16/18 01/16/18 Range/Units 01:58 05:29 10:13 POC Glucose 143 H 145 H 117 H (70-105)
--- NOTE | 2018-01-16 17:33 | Progress Note ---
Assessment and Plan Imp: 1. Haemophilus influenza pneumonia and bacteremia 2. Severe sepsis 3. ARDS 4. Acute respiratory failure, hypoxia 5. Hypernatremia Rec: 1. DVT and GI PPx, TFs 2. Finished ABX 3. HOB elevated/aspiration precautions; NPO until cleared by ST 4. PO/OT 5. Stable pulm-reeves to go to telemetry 6. Complex patient/decision-making Plan of care reviewed w/ patient/, they understand/agree Subjective Date of service: 01/16/18 Principal diagnosis: ARDS,Respiratory failure,pneumonia Interval history: No events. Extubated. On 3L NC. Coughing up clear sputum. Breathing unlabored. Active Medications Acetaminophen (Tylenol) 650 mg PO Q6H PRN PRN Reason: Pain, Mild (1-3),temp 100.5or> Last Admin: 01/16/18 13:57 Dose: 650 mg Acetaminophen (Tylenol) 650 mg HI Q4H PRN PRN Reason: Pain, Mild (1-3) Albuterol (Proventil) 2.5 mg IH Q4HRT PRN PRN Reason: Shortness Of Breath Last Admin: 12/13/17 03:01 Dose: 2.5 mg Albuterol/Ipratropium (Duoneb *Not For Prn Use*) 1 ampul IH TIDRT [facility] Last Admin: 01/16/18 14:50 Dose: 1 ampul Lipase/Protease/Amylase (Pancrealex Dr 10,500 Unit) 1 each FEEDTUBE PRN PRN PRN Reason: For Clogged Feeding Tube Chlordiazepoxide HCl (Librium) 50 mg PO Q8H [facility] Last Admin: 01/16/18 10:36 Dose: 50 mg Dextrose (D50w (25gm) Syringe) 50 ml IV PRN PRN PRN Reason: Hypoglycemia Enoxaparin Sodium (Lovenox) 40 mg SUB-Q QDAY@2200 [facility] Last Admin: 01/15/18 23:13 Dose: 40 mg Famotidine (Pepcid) 20 mg PO BID [facility] Last Admin: 01/16/18 10:35 Dose: 20 mg Fentanyl (Sublimaze) 50 mcg IV Q2H PRN PRN Reason: agitation Last Admin: 01/14/18 16:34 Dose: 50 mcg Folic Acid (Folvite) 1 mg FEEDTUBE QDAY [facility] Last Admin: 01/16/18 10:35 Dose: 1 mg Hydralazine HCl (Apresoline) 10 mg IV Q4HR PRN PRN Reason: SBP>170 Last Admin: 12/27/17 10:10 Dose: 10 mg Hydrophilic Ointment (Vaseline Lip Therapy) 1 applic TP DIRECT PRN PRN Reason: DRY LIPS Last Admin: 12/31/17 02:08 Dose: 1 applic Dexmedetomidine HCl 400 mcg/ (Sodium Chloride) 104 mls @ 5.25 mls/hr IV TITRATE [facility]; Protocol Last Admin: 01/03/18 15:33 Dose: 0.5 mcg/kg/hr, 13.13 mls/hr Insulin Glargine (Lantus) 26 units SUB-Q DAILY [facility] Last Admin: 01/16/18 11:55 Dose: 26 units Insulin Human Lispro (Humalog) 0 unit SUB-Q Q4H [facility]; Protocol Last Admin: 01/16/18 14:18 Dose: Not Given Labetalol HCl (Normodyne) 20 mg IV Q6H PRN PRN Reason: Blood Pressure Metoprolol Tartrate (Lopressor) 50 mg PO BID [facility] Last Admin: 01/16/18 10:35 Dose: 50 mg Multi-Ingred Cream/Lotion/Oil/Oint (Artificial Tears Ophth Oint) 1 applic OU Q4HR PRN PRN Reason: Dry Eye(s) Ondansetron HCl (Zofran) 4 mg IV Q8H PRN PRN Reason: Nausea And Vomiting Last Admin: 01/01/18 04:20 Dose: 4 mg Potassium Chloride (Potassium Chloride) 20 meq PO QDAY [facility] Last Admin: 01/16/18 10:36 Dose: 20 meq Senna/Docusate Sodium (Senokot S) 2 tab PO BID PRN PRN Reason: Laxative Effect Simple Syrup (Simple Syrup) 15 ml FEEDTUBE PRN PRN PRN Reason: Hypoglycemia Last Admin: 12/31/17 02:07 Dose: 15 ml Simple Syrup (Simple Syrup) 30 ml FEEDTUBE PRN PRN PRN Reason: Hypoglycemia Sodium Bicarbonate (Sodium Bicarbonate) 325 mg FEEDTUBE PRN PRN PRN Reason: For Clogged Feeding Tube Sodium Chloride (Sodium Chloride Flush Syringe 10 Ml) 10 ml IV BID [facility] Last Admin: 01/16/18 10:38 Dose: 10 ml Sodium Chloride (Sodium Chloride Flush Syringe 10 Ml) 10 ml IV PRN PRN PRN Reason: LINE FLUSH Last Admin: 01/14/18 04:20 Dose: 10 ml Thiamine HCl (Vitamin B-1) 100 mg PO QDAY [facility] Last Admin: 01/16/18 10:36 Dose: 100 mg Active Medications Acetaminophen (Tylenol) 650 mg PO Q6H PRN PRN Reason: Pain, Mild (1-3),temp 100.5or> Last Admin: 12/19/17 03:15 Dose: 650 mg Albuterol (Proventil) 2.5 mg IH Q4HRT PRN PRN Reason: Shortness Of Breath Last Admin: 12/13/17 03:01 Dose: 2.5 mg Albuterol/Ipratropium (Duoneb *Not For Prn Use*) 1 ampul IH Q6HRT [facility] Last Admin: 12/19/17 08:30 Dose: 1 ampul Lipase/Protease/Amylase (Pancrememoe Dr 10,500 Unit) 1 each FEEDTUBE PRN PRN PRN Reason: For Clogged Feeding Tube Dextrose (D50w (25gm) Syringe) 50 ml IV PRN PRN PRN Reason: Hypoglycemia Famotidine (Pepcid) 20 mg PO BID [facility] Last Admin: 12/19/17 09:13 Dose: 20 mg Fentanyl (Sublimaze) 50 mcg IV Q2H PRN PRN Reason: PAIN/AGITATION Last Admin: 12/18/17 15:02 Dose: 50 mcg Furosemide (Lasix) 20 mg IV ONCE ONE Stop: 12/19/17 14:00 Hydromorphone HCl (Dilaudid) 2 mg PO Q6HR [facility] Last Admin: 12/19/17 12:25 Dose: 2 mg Hydrophilic Ointment (Vaseline Lip Therapy) 1 applic TP Q2HR PRN PRN Reason: Dry Lips Hydrophilic Ointment (Vaseline Lip Therapy) 1 applic TP DIRECT PRN PRN Reason: DRY LIPS Levofloxacin/Dextrose (Levaquin 750mg/150ml) 750 mg in 150 mls @ 100 mls/hr IV Q24HR [facility]; Protocol Last Admin: 12/19/17 09:02 Dose: 100 mls/hr Fentanyl Citrate (Fentanyl Drip Premix) 2,000 mcg in 100 mls @ 5.058 mls/hr IV TITR [facility]; Protocol Last Admin: 12/19/17 08:51 Dose: 4 mcg/kg/hr, 20.23 mls/hr Midazolam HCl 100 mg/ Sodium (Chloride) 100 mls @ 2 mls/hr IV TITR [facility]; Protocol Last Titration: 12/19/17 10:03 Dose: 3 mg/hr, 3 mls/hr Clindamycin HCl (Cleocin 600 Mg/50 Ml) 600 mg in 50 mls @ 100 mls/hr IV Q8HR [facility] Stop: 12/20/17 13:59 Last Admin: 12/19/17 06:00 Dose: 100 mls/hr Propofol (Diprivan 10 Mg/Ml) 1,000 mg in 100 mls @ 3.264 mls/hr IV TITR [facility]; Protocol Last Titration: 12/19/17 13:51 Dose: 40 mcg/kg/min, 26.112 mls/hr Vancomycin HCl 1,500 mg/ (Sodium Chloride) 515 mls @ 333.333 mls/hr IV Q12H [facility] Last Admin: 12/19/17 04:43 Dose: 333.333 mls/hr Insulin Glargine (Lantus) 20 units SUB-Q DAILY [facility] Insulin Human Lispro (Humalog) 0 unit SUB-Q Q4H [facility]; Protocol Last Admin: 12/19/17 11:44 Dose: 10 unit Methylprednisolone Sodium Succinate (Solu-Medrol) 80 mg IV Q6H [facility] Last Admin: 12/19/17 08:47 Dose: 80 mg Morphine Sulfate (Morphine) 2 mg IV Q4H PRN PRN Reason: Pain, Moderate (4-6) Last Admin: 12/18/17 02:30 Dose: 2 mg Multi-Ingred Cream/Lotion/Oil/Oint (Artificial Tears Ophth Oint) 1 applic OU Q4HR PRN PRN Reason: Dry Eye(s) Ondansetron HCl (Zofran) 4 mg IV Q8H PRN PRN Reason: Nausea And Vomiting Senna/Docusate Sodium (Senokot S) 1 tab PO BID [facility] Last Admin: 12/19/17 09:09 Dose: 1 tab Simple Syrup (Simple Syrup) 15 ml FEEDTUBE PRN PRN PRN Reason: Hypoglycemia Simple Syrup (Simple Syrup) 30 ml FEEDTUBE PRN PRN PRN Reason: Hypoglycemia Sodium Bicarbonate (Sodium Bicarbonate) 325 mg FEEDTUBE PRN PRN PRN Reason: For Clogged Feeding Tube Sodium Chloride (Sodium Chloride Flush Syringe 10 Ml) 10 ml IV BID [facility] Last Admin: 12/19/17 11:49 Dose: 10 ml Sodium Chloride (Sodium Chloride Flush Syringe 10 Ml) 10 ml IV PRN PRN PRN Reason: LINE FLUSH Thiamine HCl (Vitamin B-1) 100 mg PO QDAY [facility] Last Admin: 12/19/17 09:09 Dose: 100 mg Vancomycin HCl (Vancomycin Pharmacy To Dose) 1 each IV PKCONSULT [facility]; Protocol Objective Vital Signs - 12hr 01/16/18 01/16/18 01/16/18 06:00 07:00 08:00 Temperature 99.6 F Pulse Rate 94 H 99 H 117 H Respiratory 35 H 33 H 52 H Rate Blood Pressure 126/82 131/75 124/78 O2 Sat by Pulse 90 95 90 Oximetry 01/16/18 01/16/18 01/16/18 09:00 10:00 10:35 Temperature Pulse Rate 113 H 117 H 117 H Respiratory 51 H 18 Rate Blood Pressure 113/80 125/85 O2 Sat by Pulse 94 Oximetry 01/16/18 01/16/18 01/16/18 11:00 12:00 13:00 Temperature 100.5 F H Pulse Rate 104 H 96 H 95 H Respiratory 33 H 22 21 Rate Blood Pressure 109/81 132/90 123/85 O2 Sat by Pulse 92 95 98 Oximetry 01/16/18 14:00 Temperature Pulse Rate 98 H Respiratory 20 Rate Blood Pressure 129/86 O2 Sat by Pulse 100 Oximetry Constitutional: no acute distress, alert Eyes: non-icteric ENT: oropharynx moist Neck: supple Effort: normal (unlabored) Ascultation: Bilateral: other (upper airway rhonchi, no stridor) Percussion: Bilateral: not dull Tactile fremitus: Bilateral: normal Cardiovascular: regular rate and rhythm (no mrg) Gastrointestinal: normoactive bowel sounds, soft, non-tender, non-distended Integumentary: normal Extremities: no cyanosis, no edema, pink and warm, no ischemia or petechiae Neurologic: normal mental status, non-focal exam, pupils equal and round, CN II- XII normal Psychiatric: mood appropriate, affect normal CBC and BMP: 01/15/18 08:02 01/15/18 08:02 ABG, PT/INR, D-dimer: ABG POC ABG pH 7.503 (7.35-7.45) H 12/25/17 03:38 ABG pH 7.441 pH Units (7.350-7.450) 01/06/18 03:14 POC ABG pCO2 35.8 (35-45) 12/25/17 03:38 ABG pCO2 43.2 mm Hg 01/06/18 03:14 POC ABG pO2 66 (80-105) L 12/25/17 03:38 ABG pO2 84.9 mm Hg (80.0-90.0) 01/06/18 03:14 POC ABG HCO3 28.1 12/25/17 03:38 POC ABG Total CO2 29 12/25/17 03:38 POC ABG O2 Sat 95 12/25/17 03:38 ABG O2 Saturation 97.0 % (95.0-99.0) 01/06/18 03:14 PT/INR, D-dimer PT 14.9 Sec. (12.2-14.9) 12/15/17 04:05 INR 1.11 (0.87-1.13) 12/15/17 04:05 Abnormal lab findings: Abnormal Labs 12/12/17 12/12/17 12/12/17 18:57 19:02 19:02 WBC RBC Hgb Hct MCV 96 H MCH 34 H MCHC 35 H RDW Plt Count 46 L Lymph % (Auto) [place] % (Auto) Eos % (Auto) [place] # Eos # Baso # Seg Neutrophils % Seg Neuts % (Manual) 77.0 H Lymphocytes % (Manual) 13.0 L Monocytes % (Manual) Eosinophils % (Manual) Nucleated RBC % Seg Neutrophils # Seg Neutrophils # Man Lymphocytes # (Manual) 0.9 L Monocytes # (Manual) Eosinophils # (Manual) APTT POC ABG pH ABG pH POC ABG pCO2 POC ABG pO2 ABG pO2 ABG HCO3 ABG O2 Saturation ABG Base Excess ABG Hemoglobin VBG pH Oxyhemoglobin Sodium Potassium Chloride Carbon Dioxide BUN Creatinine Glucose POC Glucose 321 H Lactic Acid 4.00 H* Calcium Phosphorus Total Bilirubin AST ALT C-Reactive Protein Total Protein Albumin Triglycerides Amylase Lipase Urine WBC (Auto) Vancomycin Trough Crossmatch 12/12/17 12/12/17 12/12/17 19:02 19:18 20:55 WBC RBC Hgb Hct MCV MCH MCHC RDW Plt Count Lymph % (Auto) [place] % (Auto) Eos % (Auto) [place] # Eos # Baso # Seg Neutrophils % Seg Neuts % (Manual) Lymphocytes % (Manual) Monocytes % (Manual) Eosinophils % (Manual) Nucleated RBC % Seg Neutrophils # Seg Neutrophils # Man Lymphocytes # (Manual) Monocytes # (Manual) Eosinophils # (Manual) APTT POC ABG pH ABG pH POC ABG pCO2 POC ABG pO2 ABG pO2 ABG HCO3 ABG O2 Saturation ABG Base Excess ABG Hemoglobin VBG pH 7.472 H Oxyhemoglobin Sodium 124 L Potassium Chloride 80.0 L Carbon Dioxide 20 L BUN Creatinine Glucose 382 H POC Glucose 283 H Lactic Acid Calcium 8.1 L Phosphorus Total Bilirubin 4.60 H AST 93 H ALT 112 H C-Reactive Protein Total Protein Albumin 2.5 L Triglycerides Amylase Lipase Urine WBC (Auto) Vancomycin Trough Crossmatch 12/12/17 12/13/17 12/13/17 21:41 00:45 01:29 WBC RBC Hgb Hct MCV MCH MCHC RDW Plt Count Lymph % (Auto) [place] % (Auto) Eos % (Auto) [place] # Eos # Baso # Seg Neutrophils % Seg Neuts % (Manual) Lymphocytes % (Manual) Monocytes % (Manual) Eosinophils % (Manual) Nucleated RBC % Seg Neutrophils # Seg Neutrophils # Man Lymphocytes # (Manual) Monocytes # (Manual) Eosinophils # (Manual) APTT POC ABG pH ABG pH POC ABG pCO2 POC ABG pO2 ABG pO2 ABG HCO3 ABG O2 Saturation ABG Base Excess ABG Hemoglobin VBG pH Oxyhemoglobin Sodium Potassium Chloride Carbon Dioxide BUN Creatinine Glucose POC Glucose Lactic Acid 4.20 H* 2.70 H* 3.30 H* Calcium Phosphorus Total Bilirubin AST ALT C-Reactive Protein Total Protein Albumin Triglycerides Amylase Lipase Urine WBC (Auto) Vancomycin Trough Crossmatch 12/13/17 12/13/17 12/13/17 02:19 03:44 05:58 WBC RBC Hgb Hct MCV 97 H MCH 34 H MCHC 35 H RDW Plt Count 41 L Lymph % (Auto) [place] % (Auto) Eos % (Auto) [place] # Eos # Baso # Seg Neutrophils % Seg Neuts % (Manual) Lymphocytes % (Manual) 8.0 L Monocytes % (Manual) 8.0 H Eosinophils % (Manual) Nucleated RBC % Seg Neutrophils # Seg Neutrophils # Man Lymphocytes # (Manual) 0.6 L Monocytes # (Manual) Eosinophils # (Manual) APTT POC ABG pH 7.334 L ABG pH POC ABG pCO2 POC ABG pO2 43 L ABG pO2 ABG HCO3 ABG O2 Saturation ABG Base Excess ABG Hemoglobin VBG pH Oxyhemoglobin Sodium Potassium Chloride Carbon Dioxide BUN Creatinine Glucose POC Glucose Lactic Acid 2.60 H* Calcium Phosphorus Total Bilirubin AST ALT C-Reactive Protein Total Protein Albumin Triglycerides Amylase Lipase Urine WBC (Auto) Vancomycin Trough Crossmatch 12/13/17 12/13/17 12/13/17 05:58 05:58 05:58 WBC RBC Hgb Hct MCV MCH MCHC RDW Plt Count Lymph % (Auto) [place] % (Auto) Eos % (Auto) [place] # Eos # Baso # Seg Neutrophils % Seg Neuts % (Manual) Lymphocytes % (Manual) Monocytes % (Manual) Eosinophils % (Manual) Nucleated RBC % Seg Neutrophils # Seg Neutrophils # Man Lymphocytes # (Manual) Monocytes # (Manual) Eosinophils # (Manual) APTT POC ABG pH ABG pH POC ABG pCO2 POC ABG pO2 ABG pO2 ABG HCO3 ABG O2 Saturation ABG Base Excess ABG Hemoglobin VBG pH Oxyhemoglobin Sodium 132 L D Potassium Chloride 90.0 L Carbon Dioxide 20 L BUN Creatinine Glucose 346 H POC Glucose 298 H Lactic Acid 4.50 H* Calcium 8.2 L Phosphorus Total Bilirubin AST ALT C-Reactive Protein Total Protein Albumin Triglycerides Amylase Lipase Urine WBC (Auto) Vancomycin Trough Crossmatch 12/13/17 12/13/17 12/13/17 06:27 09:42 11:47 WBC RBC Hgb Hct MCV MCH MCHC RDW Plt Count Lymph % (Auto) [place] % (Auto) Eos % (Auto) [place] # Eos # Baso # Seg Neutrophils % Seg Neuts % (Manual) Lymphocytes % (Manual) Monocytes % (Manual) Eosinophils % (Manual) Nucleated RBC % Seg Neutrophils # Seg Neutrophils # Man Lymphocytes # (Manual) Monocytes # (Manual) Eosinophils # (Manual) APTT POC ABG pH 7.267 L 7.298 L ABG pH POC ABG pCO2 50.4 H 51.3 H POC ABG pO2 47 L 43 L ABG pO2 ABG HCO3 ABG O2 Saturation ABG Base Excess ABG Hemoglobin VBG pH Oxyhemoglobin Sodium Potassium Chloride Carbon Dioxide BUN Creatinine Glucose POC Glucose 376 H Lactic Acid Calcium Phosphorus Total Bilirubin AST ALT C-Reactive Protein Total Protein Albumin Triglycerides Amylase Lipase Urine WBC (Auto) Vancomycin Trough Crossmatch 12/13/17 12/13/17 12/13/17 12:03 13:47 13:47 WBC RBC Hgb Hct MCV MCH MCHC RDW Plt Count Lymph % (Auto) [place] % (Auto) Eos % (Auto) [place] # Eos # Baso # Seg Neutrophils % Seg Neuts % (Manual) Lymphocytes % (Manual) Monocytes % (Manual) Eosinophils % (Manual) Nucleated RBC % Seg Neutrophils # Seg Neutrophils # Man Lymphocytes # (Manual) Monocytes # (Manual) Eosinophils # (Manual) APTT POC ABG pH 7.264 L ABG pH POC ABG pCO2 54.9 H POC ABG pO2 55 L ABG pO2 ABG HCO3 ABG O2 Saturation ABG Base Excess ABG Hemoglobin VBG pH Oxyhemoglobin Sodium Potassium Chloride Carbon Dioxide BUN Creatinine Glucose POC Glucose Lactic Acid 2.80 H* Calcium Phosphorus Total Bilirubin AST ALT C-Reactive Protein Total Protein Albumin Triglycerides Amylase 20 L Lipase 9 L Urine WBC (Auto) Vancomycin Trough Crossmatch 12/13/17 12/13/17 12/13/17 15:36 17:39 21:47 WBC RBC Hgb Hct MCV MCH MCHC RDW Plt Count Lymph % (Auto) [place] % (Auto) Eos % (Auto) [place] # Eos # Baso # Seg Neutrophils % Seg Neuts % (Manual) Lymphocytes % (Manual) Monocytes % (Manual) Eosinophils % (Manual) Nucleated RBC % Seg Neutrophils # Seg Neutrophils # Man Lymphocytes # (Manual) Monocytes # (Manual) Eosinophils # (Manual) APTT POC ABG pH 7.229 L 7.225 L ABG pH POC ABG pCO2 60.9 H 66.3 H POC ABG pO2 42 L 41 L ABG pO2 ABG HCO3 ABG O2 Saturation ABG Base Excess ABG Hemoglobin VBG pH Oxyhemoglobin Sodium Potassium Chloride Carbon Dioxide BUN Creatinine Glucose POC Glucose 289 H Lactic Acid Calcium Phosphorus Total Bilirubin AST ALT C-Reactive Protein Total Protein Albumin Triglycerides Amylase Lipase Urine WBC (Auto) Vancomycin Trough Crossmatch 12/13/17 12/14/17 12/14/17 22:19 02:03 05:16 WBC RBC Hgb Hct MCV MCH MCHC RDW Plt Count Lymph % (Auto) [place] % (Auto) Eos % (Auto) [place] # Eos # Baso # Seg Neutrophils % Seg Neuts % (Manual) Lymphocytes % (Manual) Monocytes % (Manual) Eosinophils % (Manual) Nucleated RBC % Seg Neutrophils # Seg Neutrophils # Man Lymphocytes # (Manual) Monocytes # (Manual) Eosinophils # (Manual) APTT POC ABG pH 7.247 L ABG pH POC ABG pCO2 61.2 H POC ABG pO2 53 L ABG pO2 ABG HCO3 ABG O2 Saturation ABG Base Excess ABG Hemoglobin VBG pH Oxyhemoglobin Sodium Potassium Chloride Carbon Dioxide BUN Creatinine Glucose POC Glucose 274 H 295 H Lactic Acid Calcium Phosphorus Total Bilirubin AST ALT C-Reactive Protein Total Protein Albumin Triglycerides Amylase Lipase Urine WBC (Auto) Vancomycin Trough Crossmatch 12/14/17 12/14/17 12/14/17 05:32 12:04 16:22 WBC RBC Hgb Hct MCV MCH MCHC RDW Plt Count Lymph % (Auto) [place] % (Auto) Eos % (Auto) [place] # Eos # Baso # Seg Neutrophils % Seg Neuts % (Manual) Lymphocytes % (Manual) Monocytes % (Manual) Eosinophils % (Manual) Nucleated RBC % Seg Neutrophils # Seg Neutrophils # Man Lymphocytes # (Manual) Monocytes # (Manual) Eosinophils # (Manual) APTT POC ABG pH ABG pH POC ABG pCO2 POC ABG pO2 ABG pO2 ABG HCO3 ABG O2 Saturation ABG Base Excess ABG Hemoglobin VBG pH Oxyhemoglobin Sodium Potassium Chloride Carbon Dioxide BUN Creatinine Glucose POC Glucose 230 H 241 H 231 H Lactic Acid Calcium Phosphorus Total Bilirubin AST ALT C-Reactive Protein Total Protein Albumin Triglycerides Amylase Lipase Urine WBC (Auto) Vancomycin Trough Crossmatch 12/14/17 12/15/17 12/15/17 21:29 02:29 03:25 WBC RBC Hgb Hct MCV MCH MCHC RDW Plt Count Lymph % (Auto) [place] % (Auto) Eos % (Auto) [place] # Eos # Baso # Seg Neutrophils % Seg Neuts % (Manual) Lymphocytes % (Manual) Monocytes % (Manual) Eosinophils % (Manual) Nucleated RBC % Seg Neutrophils # Seg Neutrophils # Man Lymphocytes # (Manual) Monocytes # (Manual) Eosinophils # (Manual) APTT POC ABG pH 7.330 L ABG pH POC ABG pCO2 55.3 H POC ABG pO2 59 L ABG pO2 ABG HCO3 ABG O2 Saturation ABG Base Excess ABG Hemoglobin VBG pH Oxyhemoglobin Sodium Potassium Chloride Carbon Dioxide BUN Creatinine Glucose POC Glucose 258 H 246 H Lactic Acid Calcium Phosphorus Total Bilirubin AST ALT C-Reactive Protein Total Protein Albumin Triglycerides Amylase Lipase Urine WBC (Auto) Vancomycin Trough Crossmatch 12/15/17 12/15/17 12/15/17 04:05 04:05 04:05 WBC 15.0 H RBC 3.40 L Hgb 11.3 L D Hct 33.8 L D MCV 100 H MCH 33 H MCHC RDW Plt Count 48 L Lymph % (Auto) [place] % (Auto) Eos % (Auto) [place] # Eos # Baso # Seg Neutrophils % Seg Neuts % (Manual) Lymphocytes % (Manual) 3.0 L Monocytes % (Manual) Eosinophils % (Manual) Nucleated RBC % 2.0 H Seg Neutrophils # Seg Neutrophils # Man Lymphocytes # (Manual) 0.5 L Monocytes # (Manual) 0.9 H Eosinophils # (Manual) APTT 20.9 L POC ABG pH ABG pH POC ABG pCO2 POC ABG pO2 ABG pO2 ABG HCO3 ABG O2 Saturation ABG Base Excess ABG Hemoglobin VBG pH Oxyhemoglobin Sodium Potassium Chloride Carbon Dioxide BUN 27 H Creatinine Glucose 258 H POC Glucose Lactic Acid Calcium 8.1 L Phosphorus Total Bilirubin AST ALT C-Reactive Protein Total Protein Albumin Triglycerides Amylase Lipase Urine WBC (Auto) Vancomycin Trough Crossmatch 12/15/17 12/15/17 12/15/17 05:32 11:17 14:59 WBC RBC Hgb Hct MCV MCH MCHC RDW Plt Count Lymph % (Auto) [place] % (Auto) Eos % (Auto) [place] # Eos # Baso # Seg Neutrophils % Seg Neuts % (Manual) Lymphocytes % (Manual) Monocytes % (Manual) Eosinophils % (Manual) Nucleated RBC % Seg Neutrophils # Seg Neutrophils # Man Lymphocytes # (Manual) Monocytes # (Manual) Eosinophils # (Manual) APTT POC ABG pH ABG pH POC ABG pCO2 POC ABG pO2 ABG pO2 ABG HCO3 ABG O2 Saturation ABG Base Excess ABG Hemoglobin VBG pH Oxyhemoglobin Sodium Potassium Chloride Carbon Dioxide BUN Creatinine Glucose POC Glucose 247 H 268 H 233 H Lactic Acid Calcium Phosphorus Total Bilirubin AST ALT C-Reactive Protein Total Protein Albumin Triglycerides Amylase Lipase Urine WBC (Auto) Vancomycin Trough Crossmatch 12/15/17 12/15/17 12/15/17 17:00 18:59 21:37 WBC RBC Hgb Hct MCV MCH MCHC RDW Plt Count Lymph % (Auto) [place] % (Auto) Eos % (Auto) [place] # Eos # Baso # Seg Neutrophils % Seg Neuts % (Manual) Lymphocytes % (Manual) Monocytes % (Manual) Eosinophils % (Manual) Nucleated RBC % Seg Neutrophils # Seg Neutrophils # Man Lymphocytes # (Manual) Monocytes # (Manual) Eosinophils # (Manual) APTT POC ABG pH ABG pH POC ABG pCO2 POC ABG pO2 ABG pO2 ABG HCO3 ABG O2 Saturation ABG Base Excess ABG Hemoglobin VBG pH Oxyhemoglobin Sodium Potassium Chloride Carbon Dioxide BUN Creatinine Glucose POC Glucose 195 H 208 H Lactic Acid Calcium Phosphorus Total Bilirubin AST ALT C-Reactive Protein Total Protein Albumin Triglycerides Amylase Lipase Urine WBC (Auto) 38.0 H Vancomycin Trough Crossmatch 12/16/17 12/16/17 12/16/17 03:17 03:33 04:18 WBC 16.4 H RBC 3.50 L Hgb 11.3 L Hct 35.4 L MCV 101 H MCH MCHC RDW Plt Count 54 L Lymph % (Auto) [place] % (Auto) Eos % (Auto) [place] # Eos # Baso # Seg Neutrophils % Seg Neuts % (Manual) Lymphocytes % (Manual) Monocytes % (Manual) Eosinophils % (Manual) Nucleated RBC % Seg Neutrophils # Seg Neutrophils # Man Lymphocytes # (Manual) Monocytes # (Manual) Eosinophils # (Manual) APTT POC ABG pH ABG pH POC ABG pCO2 47.7 H POC ABG pO2 ABG pO2 ABG HCO3 ABG O2 Saturation ABG Base Excess ABG Hemoglobin VBG pH Oxyhemoglobin Sodium Potassium Chloride Carbon Dioxide BUN Creatinine Glucose POC Glucose 227 H Lactic Acid Calcium Phosphorus Total Bilirubin AST ALT C-Reactive Protein Total Protein Albumin Triglycerides Amylase Lipase Urine WBC (Auto) Vancomycin Trough Crossmatch 12/16/17 12/16/17 12/16/17 04:18 05:08 10:01 WBC RBC Hgb Hct MCV MCH MCHC RDW Plt Count Lymph % (Auto) [place] % (Auto) Eos % (Auto) [place] # Eos # Baso # Seg Neutrophils % Seg Neuts % (Manual) Lymphocytes % (Manual) Monocytes % (Manual) Eosinophils % (Manual) Nucleated RBC % Seg Neutrophils # Seg Neutrophils # Man Lymphocytes # (Manual) Monocytes # (Manual) Eosinophils # (Manual) APTT POC ABG pH ABG pH POC ABG pCO2 POC ABG pO2 ABG pO2 ABG HCO3 ABG O2 Saturation ABG Base Excess ABG Hemoglobin VBG pH Oxyhemoglobin Sodium 147 H Potassium Chloride 107.4 H Carbon Dioxide BUN 28 H Creatinine Glucose 240 H POC Glucose 227 H 190 H Lactic Acid Calcium 8.3 L Phosphorus Total Bilirubin AST ALT C-Reactive Protein Total Protein Albumin Triglycerides Amylase Lipase Urine WBC (Auto) Vancomycin Trough Crossmatch 12/16/17 12/16/17 12/16/17 14:15 17:51 21:14 WBC RBC Hgb Hct MCV MCH MCHC RDW Plt Count Lymph % (Auto) [place] % (Auto) Eos % (Auto) [place] # Eos # Baso # Seg Neutrophils % Seg Neuts % (Manual) Lymphocytes % (Manual) Monocytes % (Manual) Eosinophils % (Manual) Nucleated RBC % Seg Neutrophils # Seg Neutrophils # Man Lymphocytes # (Manual) Monocytes # (Manual) Eosinophils # (Manual) APTT POC ABG pH ABG pH POC ABG pCO2 POC ABG pO2 ABG pO2 ABG HCO3 ABG O2 Saturation ABG Base Excess ABG Hemoglobin VBG pH Oxyhemoglobin Sodium Potassium Chloride Carbon Dioxide BUN Creatinine Glucose POC Glucose 279 H 272 H 260 H Lactic Acid Calcium Phosphorus Total Bilirubin AST ALT C-Reactive Protein Total Protein Albumin Triglycerides Amylase Lipase Urine WBC (Auto) Vancomycin Trough Crossmatch 12/17/17 12/17/17 12/17/17 02:41 04:28 04:28 WBC 19.1 H RBC 3.50 L Hgb 11.4 L Hct 35.3 L MCV 101 H MCH 33 H MCHC RDW Plt Count 65 L Lymph % (Auto) [place] % (Auto) Eos % (Auto) [place] # Eos # Baso # Seg Neutrophils % Seg Neuts % (Manual) Lymphocytes % (Manual) Monocytes % (Manual) Eosinophils % (Manual) Nucleated RBC % Seg Neutrophils # Seg Neutrophils # Man Lymphocytes # (Manual) Monocytes # (Manual) Eosinophils # (Manual) APTT POC ABG pH ABG pH POC ABG pCO2 POC ABG pO2 ABG pO2 ABG HCO3 ABG O2 Saturation ABG Base Excess ABG Hemoglobin VBG pH Oxyhemoglobin Sodium 153 H Potassium Chloride 111.2 H Carbon Dioxide 31 H BUN 28 H Creatinine Glucose 248 H POC Glucose 300 H Lactic Acid Calcium Phosphorus Total Bilirubin AST ALT C-Reactive Protein Total Protein Albumin Triglycerides Amylase Lipase Urine WBC (Auto) Vancomycin Trough Crossmatch 12/17/17 12/17/17 12/17/17 05:15 05:38 10:16 WBC RBC Hgb Hct MCV MCH MCHC RDW Plt Count Lymph % (Auto) [place] % (Auto) Eos % (Auto) [place] # Eos # Baso # Seg Neutrophils % Seg Neuts % (Manual) Lymphocytes % (Manual) Monocytes % (Manual) Eosinophils % (Manual) Nucleated RBC % Seg Neutrophils # Seg Neutrophils # Man Lymphocytes # (Manual) Monocytes # (Manual) Eosinophils # (Manual) APTT POC ABG pH ABG pH POC ABG pCO2 50.3 H POC ABG pO2 120 H ABG pO2 ABG HCO3 ABG O2 Saturation ABG Base Excess ABG Hemoglobin VBG pH Oxyhemoglobin Sodium Potassium Chloride Carbon Dioxide BUN Creatinine Glucose POC Glucose 231 H 196 H Lactic Acid Calcium Phosphorus Total Bilirubin AST ALT C-Reactive Protein Total Protein Albumin Triglycerides Amylase Lipase Urine WBC (Auto) Vancomycin Trough Crossmatch 12/17/17 12/17/17 12/17/17 14:22 18:14 21:35 WBC RBC Hgb Hct MCV MCH MCHC RDW Plt Count Lymph % (Auto) [place] % (Auto) Eos % (Auto) [place] # Eos # Baso # Seg Neutrophils % Seg Neuts % (Manual) Lymphocytes % (Manual) Monocytes % (Manual) Eosinophils % (Manual) Nucleated RBC % Seg Neutrophils # Seg Neutrophils # Man Lymphocytes # (Manual) Monocytes # (Manual) Eosinophils # (Manual) APTT POC ABG pH ABG pH POC ABG pCO2 POC ABG pO2 ABG pO2 ABG HCO3 ABG O2 Saturation ABG Base Excess ABG Hemoglobin VBG pH Oxyhemoglobin Sodium Potassium Chloride Carbon Dioxide BUN Creatinine Glucose POC Glucose 234 H 215 H 159 H Lactic Acid Calcium Phosphorus Total Bilirubin AST ALT C-Reactive Protein Total Protein Albumin Triglycerides Amylase Lipase Urine WBC (Auto) Vancomycin Trough Crossmatch 12/18/17 12/18/17 12/18/17 00:53 02:58 06:03 WBC RBC Hgb Hct MCV MCH MCHC RDW Plt Count Lymph % (Auto) [place] % (Auto) Eos % (Auto) [place] # Eos # Baso # Seg Neutrophils % Seg Neuts % (Manual) Lymphocytes % (Manual) Monocytes % (Manual) Eosinophils % (Manual) Nucleated RBC % Seg Neutrophils # Seg Neutrophils # Man Lymphocytes # (Manual) Monocytes # (Manual) Eosinophils # (Manual) APTT POC ABG pH ABG pH POC ABG pCO2 56.4 H POC ABG pO2 46 L ABG pO2 ABG HCO3 ABG O2 Saturation ABG Base Excess ABG Hemoglobin VBG pH Oxyhemoglobin Sodium Potassium Chloride Carbon Dioxide BUN Creatinine Glucose POC Glucose 176 H 143 H Lactic Acid Calcium Phosphorus Total Bilirubin AST ALT C-Reactive Protein Total Protein Albumin Triglycerides Amylase Lipase Urine WBC (Auto) Vancomycin Trough Crossmatch 12/18/17 12/18/17 12/18/17 07:59 09:20 09:20 WBC 27.4 H RBC 3.57 L Hgb 11.4 L Hct MCV 101 H MCH MCHC RDW Plt Count 64 L Lymph % (Auto) [place] % (Auto) Eos % (Auto) [place] # Eos # Baso # Seg Neutrophils % Seg Neuts % (Manual) Lymphocytes % (Manual) Monocytes % (Manual) Eosinophils % (Manual) Nucleated RBC % Seg Neutrophils # Seg Neutrophils # Man Lymphocytes # (Manual) Monocytes # (Manual) Eosinophils # (Manual) APTT POC ABG pH ABG pH POC ABG pCO2 POC ABG pO2 ABG pO2 ABG HCO3 ABG O2 Saturation ABG Base Excess ABG Hemoglobin VBG pH Oxyhemoglobin Sodium 152 H Potassium Chloride 107.9 H Carbon Dioxide 34 H BUN 23 H Creatinine 0.7 L Glucose 181 H POC Glucose 197 H Lactic Acid Calcium Phosphorus Total Bilirubin AST ALT C-Reactive Protein Total Protein Albumin Triglycerides Amylase Lipase Urine WBC (Auto) Vancomycin Trough Crossmatch 12/18/17 12/18/17 12/18/17 10:22 15:03 18:15 WBC RBC Hgb Hct MCV MCH MCHC RDW Plt Count Lymph % (Auto) [place] % (Auto) Eos % (Auto) [place] # Eos # Baso # Seg Neutrophils % Seg Neuts % (Manual) Lymphocytes % (Manual) Monocytes % (Manual) Eosinophils % (Manual) Nucleated RBC % Seg Neutrophils # Seg Neutrophils # Man Lymphocytes # (Manual) Monocytes # (Manual) Eosinophils # (Manual) APTT POC ABG pH ABG pH POC ABG pCO2 POC ABG pO2 ABG pO2 ABG HCO3 ABG O2 Saturation ABG Base Excess ABG Hemoglobin VBG pH Oxyhemoglobin Sodium Potassium Chloride Carbon Dioxide BUN Creatinine Glucose POC Glucose 195 H 225 H 238 H Lactic Acid Calcium Phosphorus Total Bilirubin AST ALT C-Reactive Protein Total Protein Albumin Triglycerides Amylase Lipase Urine WBC (Auto) Vancomycin Trough Crossmatch 12/18/17 12/18/17 12/19/17 18:29 21:53 00:18 WBC RBC Hgb Hct MCV MCH MCHC RDW Plt Count Lymph % (Auto) [place] % (Auto) Eos % (Auto) [place] # Eos # Baso # Seg Neutrophils % Seg Neuts % (Manual) Lymphocytes % (Manual) Monocytes % (Manual) Eosinophils % (Manual) Nucleated RBC % Seg Neutrophils # Seg Neutrophils # Man Lymphocytes # (Manual) Monocytes # (Manual) Eosinophils # (Manual) APTT POC ABG pH 7.476 H ABG pH POC ABG pCO2 50.4 H POC ABG pO2 158 H ABG pO2 ABG HCO3 ABG O2 Saturation ABG Base Excess ABG Hemoglobin VBG pH Oxyhemoglobin Sodium Potassium Chloride Carbon Dioxide BUN Creatinine Glucose POC Glucose 231 H 263 H Lactic Acid Calcium Phosphorus Total Bilirubin AST ALT C-Reactive Protein Total Protein Albumin Triglycerides Amylase Lipase Urine WBC (Auto) Vancomycin Trough Crossmatch 12/19/17 12/19/17 12/19/17 02:09 04:07 04:07 WBC 25.9 H RBC 3.25 L Hgb 10.6 L Hct 32.8 L MCV 101 H MCH 33 H MCHC RDW Plt Count 67 L Lymph % (Auto) [place] % (Auto) Eos % (Auto) [place] # Eos # Baso # Seg Neutrophils % Seg Neuts % (Manual) Lymphocytes % (Manual) 4.0 L Monocytes % (Manual) Eosinophils % (Manual) Nucleated RBC % Seg Neutrophils # Seg Neutrophils # Man 14.8 H Lymphocytes # (Manual) 1.0 L Monocytes # (Manual) Eosinophils # (Manual) APTT POC ABG pH ABG pH POC ABG pCO2 POC ABG pO2 ABG pO2 ABG HCO3 ABG O2 Saturation ABG Base Excess ABG Hemoglobin VBG pH Oxyhemoglobin Sodium 148 H Potassium Chloride Carbon Dioxide BUN 31 H Creatinine Glucose 314 H POC Glucose 300 H Lactic Acid Calcium 8.1 L Phosphorus Total Bilirubin AST ALT C-Reactive Protein Total Protein Albumin Triglycerides Amylase Lipase Urine WBC (Auto) Vancomycin Trough Crossmatch 12/19/17 12/19/17 12/19/17 05:15 05:41 07:57 WBC RBC Hgb Hct MCV MCH MCHC RDW Plt Count Lymph % (Auto) [place] % (Auto) Eos % (Auto) [place] # Eos # Baso # Seg Neutrophils % Seg Neuts % (Manual) Lymphocytes % (Manual) Monocytes % (Manual) Eosinophils % (Manual) Nucleated RBC % Seg Neutrophils # Seg Neutrophils # Man Lymphocytes # (Manual) Monocytes # (Manual) Eosinophils # (Manual) APTT POC ABG pH 7.507 H ABG pH POC ABG pCO2 POC ABG pO2 ABG pO2 ABG HCO3 ABG O2 Saturation ABG Base Excess ABG Hemoglobin VBG pH Oxyhemoglobin Sodium Potassium Chloride Carbon Dioxide BUN Creatinine Glucose POC Glucose 331 H 307 H Lactic Acid Calcium Phosphorus Total Bilirubin AST ALT C-Reactive Protein Total Protein Albumin Triglycerides Amylase Lipase Urine WBC (Auto) Vancomycin Trough Crossmatch 12/19/17 12/19/17 12/19/17 10:21 14:48 17:59 WBC RBC Hgb Hct MCV MCH MCHC RDW Plt Count Lymph % (Auto) [place] % (Auto) Eos % (Auto) [place] # Eos # Baso # Seg Neutrophils % Seg Neuts % (Manual) Lymphocytes % (Manual) Monocytes % (Manual) Eosinophils % (Manual) Nucleated RBC % Seg Neutrophils # Seg Neutrophils # Man Lymphocytes # (Manual) Monocytes # (Manual) Eosinophils # (Manual) APTT POC ABG pH ABG pH POC ABG pCO2 POC ABG pO2 ABG pO2 ABG HCO3 ABG O2 Saturation ABG Base Excess ABG Hemoglobin VBG pH Oxyhemoglobin Sodium Potassium Chloride Carbon Dioxide BUN Creatinine Glucose POC Glucose 358 H 327 H 355 H Lactic Acid Calcium Phosphorus Total Bilirubin AST ALT C-Reactive Protein Total Protein Albumin Triglycerides Amylase Lipase Urine WBC (Auto) Vancomycin Trough Crossmatch 12/19/17 12/20/17 12/20/17 21:38 02:21 03:42 WBC RBC Hgb Hct MCV MCH MCHC RDW Plt Count Lymph % (Auto) [place] % (Auto) Eos % (Auto) [place] # Eos # Baso # Seg Neutrophils % Seg Neuts % (Manual) Lymphocytes % (Manual) Monocytes % (Manual) Eosinophils % (Manual) Nucleated RBC % Seg Neutrophils # Seg Neutrophils # Man Lymphocytes # (Manual) Monocytes # (Manual) Eosinophils # (Manual) APTT POC ABG pH 7.494 H ABG pH POC ABG pCO2 POC ABG pO2 ABG pO2 ABG HCO3 ABG O2 Saturation ABG Base Excess ABG Hemoglobin VBG pH Oxyhemoglobin Sodium Potassium Chloride Carbon Dioxide BUN Creatinine Glucose POC Glucose 329 H 354 H Lactic Acid Calcium Phosphorus Total Bilirubin AST ALT C-Reactive Protein Total Protein Albumin Triglycerides Amylase Lipase Urine WBC (Auto) Vancomycin Trough Crossmatch 12/20/17 12/20/17 12/20/17 04:08 04:08 04:08 WBC 22.7 H RBC 3.26 L Hgb 10.6 L Hct 32.9 L MCV 101 H MCH 33 H MCHC RDW Plt Count 78 L Lymph % (Auto) [place] % (Auto) Eos % (Auto) [place] # Eos # Baso # Seg Neutrophils % Seg Neuts % (Manual) 80.0 H Lymphocytes % (Manual) 6.0 L Monocytes % (Manual) Eosinophils % (Manual) Nucleated RBC % Seg Neutrophils # Seg Neutrophils # Man 18.2 H Lymphocytes # (Manual) Monocytes # (Manual) Eosinophils # (Manual) APTT POC ABG pH ABG pH POC ABG pCO2 POC ABG pO2 ABG pO2 ABG HCO3 ABG O2 Saturation ABG Base Excess ABG Hemoglobin VBG pH Oxyhemoglobin Sodium Potassium Chloride Carbon Dioxide 31 H BUN 30 H Creatinine 0.6 L Glucose 365 H POC Glucose Lactic Acid Calcium Phosphorus Total Bilirubin AST ALT C-Reactive Protein Total Protein Albumin Triglycerides 981 H Amylase Lipase Urine WBC (Auto) Vancomycin Trough Crossmatch 12/20/17 12/20/17 12/20/17 05:15 10:47 13:40 WBC RBC Hgb Hct MCV MCH MCHC RDW Plt Count Lymph % (Auto) [place] % (Auto) Eos % (Auto) [place] # Eos # Baso # Seg Neutrophils % Seg Neuts % (Manual) Lymphocytes % (Manual) Monocytes % (Manual) Eosinophils % (Manual) Nucleated RBC % Seg Neutrophils # Seg Neutrophils # Man Lymphocytes # (Manual) Monocytes # (Manual) Eosinophils # (Manual) APTT POC ABG pH ABG pH POC ABG pCO2 POC ABG pO2 ABG pO2 ABG HCO3 ABG O2 Saturation ABG Base Excess ABG Hemoglobin VBG pH Oxyhemoglobin Sodium Potassium Chloride Carbon Dioxide BUN Creatinine Glucose POC Glucose 342 H 330 H Lactic Acid Calcium Phosphorus Total Bilirubin AST ALT C-Reactive Protein 7.10 H Total Protein Albumin Triglycerides Amylase Lipase Urine WBC (Auto) Vancomycin Trough Crossmatch 12/20/17 12/20/17 12/20/17 13:40 14:52 16:55 WBC RBC Hgb Hct MCV MCH MCHC RDW Plt Count Lymph % (Auto) [place] % (Auto) Eos % (Auto) [place] # Eos # Baso # Seg Neutrophils % Seg Neuts % (Manual) Lymphocytes % (Manual) Monocytes % (Manual) Eosinophils % (Manual) Nucleated RBC % Seg Neutrophils # Seg Neutrophils # Man Lymphocytes # (Manual) Monocytes # (Manual) Eosinophils # (Manual) APTT POC ABG pH 7.484 H ABG pH POC ABG pCO2 POC ABG pO2 ABG pO2 ABG HCO3 ABG O2 Saturation ABG Base Excess ABG Hemoglobin VBG pH Oxyhemoglobin Sodium Potassium Chloride Carbon Dioxide BUN Creatinine Glucose POC Glucose 293 H Lactic Acid Calcium Phosphorus Total Bilirubin AST ALT C-Reactive Protein Total Protein Albumin Triglycerides 1042 H Amylase Lipase Urine WBC (Auto) Vancomycin Trough Crossmatch 12/20/17 12/20/17 12/21/17 18:00 21:58 02:05 WBC RBC Hgb Hct MCV MCH MCHC RDW Plt Count Lymph % (Auto) [place] % (Auto) Eos % (Auto) [place] # Eos # Baso # Seg Neutrophils % Seg Neuts % (Manual) Lymphocytes % (Manual) Monocytes % (Manual) Eosinophils % (Manual) Nucleated RBC % Seg Neutrophils # Seg Neutrophils # Man Lymphocytes # (Manual) Monocytes # (Manual) Eosinophils # (Manual) APTT POC ABG pH ABG pH POC ABG pCO2 POC ABG pO2 ABG pO2 ABG HCO3 ABG O2 Saturation ABG Base Excess ABG Hemoglobin VBG pH Oxyhemoglobin Sodium Potassium Chloride Carbon Dioxide BUN Creatinine Glucose POC Glucose 268 H 272 H 229 H Lactic Acid Calcium Phosphorus Total Bilirubin AST ALT C-Reactive Protein Total Protein Albumin Triglycerides Amylase Lipase Urine WBC (Auto) Vancomycin Trough Crossmatch 12/21/17 12/21/17 12/21/17 03:59 06:23 08:57 WBC RBC Hgb Hct MCV MCH MCHC RDW Plt Count Lymph % (Auto) [place] % (Auto) Eos % (Auto) [place] # Eos # Baso # Seg Neutrophils % Seg Neuts % (Manual) Lymphocytes % (Manual) Monocytes % (Manual) Eosinophils % (Manual) Nucleated RBC % Seg Neutrophils # Seg Neutrophils # Man Lymphocytes # (Manual) Monocytes # (Manual) Eosinophils # (Manual) APTT POC ABG pH 7.474 H ABG pH POC ABG pCO2 POC ABG pO2 71 L ABG pO2 ABG HCO3 ABG O2 Saturation ABG Base Excess ABG Hemoglobin VBG pH Oxyhemoglobin Sodium Potassium Chloride Carbon Dioxide BUN Creatinine Glucose POC Glucose 182 H 217 H Lactic Acid Calcium Phosphorus Total Bilirubin AST ALT C-Reactive Protein Total Protein Albumin Triglycerides Amylase Lipase Urine WBC (Auto) Vancomycin Trough Crossmatch 12/21/17 12/21/17 12/21/17 13:59 18:00 21:20 WBC RBC Hgb Hct MCV MCH MCHC RDW Plt Count Lymph % (Auto) [place] % (Auto) Eos % (Auto) [place] # Eos # Baso # Seg Neutrophils % Seg Neuts % (Manual) Lymphocytes % (Manual) Monocytes % (Manual) Eosinophils % (Manual) Nucleated RBC % Seg Neutrophils # Seg Neutrophils # Man Lymphocytes # (Manual) Monocytes # (Manual) Eosinophils # (Manual) APTT POC ABG pH ABG pH POC ABG pCO2 POC ABG pO2 ABG pO2 ABG HCO3 ABG O2 Saturation ABG Base Excess ABG Hemoglobin VBG pH Oxyhemoglobin Sodium Potassium Chloride Carbon Dioxide BUN Creatinine Glucose POC Glucose 185 H 176 H 187 H Lactic Acid Calcium Phosphorus Total Bilirubin AST ALT C-Reactive Protein Total Protein Albumin Triglycerides Amylase Lipase Urine WBC (Auto) Vancomycin Trough Crossmatch 12/21/17 12/22/17 12/22/17 23:48 04:39 05:30 WBC RBC Hgb Hct MCV MCH MCHC RDW Plt Count Lymph % (Auto) [place] % (Auto) Eos % (Auto) [place] # Eos # Baso # Seg Neutrophils % Seg Neuts % (Manual) Lymphocytes % (Manual) Monocytes % (Manual) Eosinophils % (Manual) Nucleated RBC % Seg Neutrophils # Seg Neutrophils # Man Lymphocytes # (Manual) Monocytes # (Manual) Eosinophils # (Manual) APTT POC ABG pH 7.528 H ABG pH POC ABG pCO2 POC ABG pO2 63 L ABG pO2 ABG HCO3 ABG O2 Saturation ABG Base Excess ABG Hemoglobin VBG pH Oxyhemoglobin Sodium Potassium Chloride Carbon Dioxide BUN Creatinine Glucose POC Glucose 126 H 117 H Lactic Acid Calcium Phosphorus Total Bilirubin AST ALT C-Reactive Protein Total Protein Albumin Triglycerides Amylase Lipase Urine WBC (Auto) Vancomycin Trough Crossmatch 12/22/17 12/22/17 12/22/17 09:12 10:34 10:34 WBC 29.5 H RBC 3.44 L Hgb 11.2 L Hct 34.2 L MCV 99 H MCH 33 H MCHC RDW 13.1 L Plt Count 97 L Lymph % (Auto) [place] % (Auto) Eos % (Auto) [place] # Eos # Baso # Seg Neutrophils % Seg Neuts % (Manual) 88.0 H Lymphocytes % (Manual) 5.0 L Monocytes % (Manual) Eosinophils % (Manual) Nucleated RBC % Seg Neutrophils # Seg Neutrophils # Man 26.0 H Lymphocytes # (Manual) Monocytes # (Manual) Eosinophils # (Manual) APTT POC ABG pH ABG pH POC ABG pCO2 POC ABG pO2 ABG pO2 ABG HCO3 ABG O2 Saturation ABG Base Excess ABG Hemoglobin VBG pH Oxyhemoglobin Sodium 146 H Potassium 3.1 L Chloride Carbon Dioxide BUN 25 H Creatinine 0.7 L Glucose 146 H POC Glucose 168 H Lactic Acid Calcium 8.1 L Phosphorus Total Bilirubin AST ALT C-Reactive Protein Total Protein Albumin Triglycerides Amylase Lipase Urine WBC (Auto) Vancomycin Trough Crossmatch 12/22/17 12/22/17 12/22/17 14:51 17:21 21:43 WBC RBC Hgb Hct MCV MCH MCHC RDW Plt Count Lymph % (Auto) [place] % (Auto) Eos % (Auto) [place] # Eos # Baso # Seg Neutrophils % Seg Neuts % (Manual) Lymphocytes % (Manual) Monocytes % (Manual) Eosinophils % (Manual) Nucleated RBC % Seg Neutrophils # Seg Neutrophils # Man Lymphocytes # (Manual) Monocytes # (Manual) Eosinophils # (Manual) APTT POC ABG pH ABG pH POC ABG pCO2 POC ABG pO2 ABG pO2 ABG HCO3 ABG O2 Saturation ABG Base Excess ABG Hemoglobin VBG pH Oxyhemoglobin Sodium Potassium Chloride Carbon Dioxide BUN Creatinine Glucose POC Glucose 125 H 110 H 153 H Lactic Acid Calcium Phosphorus Total Bilirubin AST ALT C-Reactive Protein Total Protein Albumin Triglycerides Amylase Lipase Urine WBC (Auto) Vancomycin Trough Crossmatch 12/23/17 12/23/17 12/23/17 04:33 05:28 09:25 WBC 31.4 H RBC 3.05 L Hgb 9.8 L Hct 30.2 L MCV 99 H MCH MCHC RDW 12.9 L Plt Count 101 L Lymph % (Auto) [place] % (Auto) Eos % (Auto) [place] # Eos # Baso # Seg Neutrophils % Seg Neuts % (Manual) 97 H Lymphocytes % (Manual) 2 L Monocytes % (Manual) Eosinophils % (Manual) Nucleated RBC % Seg Neutrophils # Seg Neutrophils # Man 31.1 H Lymphocytes # (Manual) 0.5 L Monocytes # (Manual) Eosinophils # (Manual) APTT POC ABG pH 7.573 H ABG pH POC ABG pCO2 31.0 L POC ABG pO2 63 L ABG pO2 ABG HCO3 ABG O2 Saturation ABG Base Excess ABG Hemoglobin VBG pH Oxyhemoglobin Sodium Potassium Chloride Carbon Dioxide BUN Creatinine Glucose POC Glucose 124 H Lactic Acid Calcium Phosphorus Total Bilirubin AST ALT C-Reactive Protein Total Protein Albumin Triglycerides Amylase Lipase Urine WBC (Auto) Vancomycin Trough Crossmatch 12/23/17 12/23/17 12/23/17 09:25 10:08 14:20 WBC RBC Hgb Hct MCV MCH MCHC RDW Plt Count Lymph % (Auto) [place] % (Auto) Eos % (Auto) [place] # Eos # Baso # Seg Neutrophils % Seg Neuts % (Manual) Lymphocytes % (Manual) Monocytes % (Manual) Eosinophils % (Manual) Nucleated RBC % Seg Neutrophils # Seg Neutrophils # Man Lymphocytes # (Manual) Monocytes # (Manual) Eosinophils # (Manual) APTT POC ABG pH ABG pH POC ABG pCO2 POC ABG pO2 ABG pO2 ABG HCO3 ABG O2 Saturation ABG Base Excess ABG Hemoglobin VBG pH Oxyhemoglobin Sodium Potassium 3.1 L Chloride Carbon Dioxide BUN Creatinine 0.6 L Glucose 169 H POC Glucose 171 H 211 H Lactic Acid Calcium 7.9 L Phosphorus Total Bilirubin AST ALT C-Reactive Protein Total Protein Albumin Triglycerides Amylase Lipase Urine WBC (Auto) Vancomycin Trough Crossmatch 12/23/17 12/23/17 12/24/17 18:59 21:49 01:47 WBC RBC Hgb Hct MCV MCH MCHC RDW Plt Count Lymph % (Auto) [place] % (Auto) Eos % (Auto) [place] # Eos # Baso # Seg Neutrophils % Seg Neuts % (Manual) Lymphocytes % (Manual) Monocytes % (Manual) Eosinophils % (Manual) Nucleated RBC % Seg Neutrophils # Seg Neutrophils # Man Lymphocytes # (Manual) Monocytes # (Manual) Eosinophils # (Manual) APTT POC ABG pH ABG pH POC ABG pCO2 POC ABG pO2 ABG pO2 ABG HCO3 ABG O2 Saturation ABG Base Excess ABG Hemoglobin VBG pH Oxyhemoglobin Sodium Potassium Chloride Carbon Dioxide BUN Creatinine Glucose POC Glucose 175 H 146 H 143 H Lactic Acid Calcium Phosphorus Total Bilirubin AST ALT C-Reactive Protein Total Protein Albumin Triglycerides Amylase Lipase Urine WBC (Auto) Vancomycin Trough Crossmatch 12/24/17 12/24/17 12/24/17 05:40 10:12 13:12 WBC RBC Hgb Hct MCV MCH MCHC RDW Plt Count Lymph % (Auto) [place] % (Auto) Eos % (Auto) [place] # Eos # Baso # Seg Neutrophils % Seg Neuts % (Manual) Lymphocytes % (Manual) Monocytes % (Manual) Eosinophils % (Manual) Nucleated RBC % Seg Neutrophils # Seg Neutrophils # Man Lymphocytes # (Manual) Monocytes # (Manual) Eosinophils # (Manual) APTT POC ABG pH 7.558 H ABG pH POC ABG pCO2 27.6 L POC ABG pO2 71 L ABG pO2 ABG HCO3 ABG O2 Saturation ABG Base Excess ABG Hemoglobin VBG pH Oxyhemoglobin Sodium Potassium Chloride Carbon Dioxide BUN Creatinine Glucose POC Glucose 118 H 111 H Lactic Acid Calcium Phosphorus Total Bilirubin AST ALT C-Reactive Protein Total Protein Albumin Triglycerides Amylase Lipase Urine WBC (Auto) Vancomycin Trough Crossmatch 12/24/17 12/24/17 12/24/17 16:26 20:44 21:49 WBC RBC Hgb Hct MCV MCH MCHC RDW Plt Count Lymph % (Auto) [place] % (Auto) Eos % (Auto) [place] # Eos # Baso # Seg Neutrophils % Seg Neuts % (Manual) Lymphocytes % (Manual) Monocytes % (Manual) Eosinophils % (Manual) Nucleated RBC % Seg Neutrophils # Seg Neutrophils # Man Lymphocytes # (Manual) Monocytes # (Manual) Eosinophils # (Manual) APTT POC ABG pH ABG pH POC ABG pCO2 POC ABG pO2 ABG pO2 ABG HCO3 ABG O2 Saturation ABG Base Excess ABG Hemoglobin VBG pH Oxyhemoglobin Sodium Potassium Chloride Carbon Dioxide BUN Creatinine Glucose POC Glucose 113 H 124 H 115 H Lactic Acid Calcium Phosphorus Total Bilirubin AST ALT C-Reactive Protein Total Protein Albumin Triglycerides Amylase Lipase Urine WBC (Auto) Vancomycin Trough Crossmatch 12/24/17 12/25/17 12/25/17 Unknown 02:26 03:38 WBC RBC Hgb Hct MCV MCH MCHC RDW Plt Count Lymph % (Auto) [place] % (Auto) Eos % (Auto) [place] # Eos # Baso # Seg Neutrophils % Seg Neuts % (Manual) Lymphocytes % (Manual) Monocytes % (Manual) Eosinophils % (Manual) Nucleated RBC % Seg Neutrophils # Seg Neutrophils # Man Lymphocytes # (Manual) Monocytes # (Manual) Eosinophils # (Manual) APTT POC ABG pH 7.503 H ABG pH POC ABG pCO2 POC ABG pO2 66 L ABG pO2 ABG HCO3 ABG O2 Saturation ABG Base Excess ABG Hemoglobin VBG pH Oxyhemoglobin Sodium Potassium 3.0 L Chloride Carbon Dioxide BUN Creatinine 0.5 L Glucose 166 H POC Glucose 106 H Lactic Acid Calcium 7.8 L Phosphorus Total Bilirubin AST ALT C-Reactive Protein Total Protein Albumin Triglycerides Amylase Lipase Urine WBC (Auto) Vancomycin Trough Crossmatch 12/25/17 12/25/17 12/25/17 04:58 12:58 15:06 WBC RBC Hgb Hct MCV MCH MCHC RDW Plt Count Lymph % (Auto) [place] % (Auto) Eos % (Auto) [place] # Eos # Baso # Seg Neutrophils % Seg Neuts % (Manual) Lymphocytes % (Manual) Monocytes % (Manual) Eosinophils % (Manual) Nucleated RBC % Seg Neutrophils # Seg Neutrophils # Man Lymphocytes # (Manual) Monocytes # (Manual) Eosinophils # (Manual) APTT POC ABG pH ABG pH POC ABG pCO2 POC ABG pO2 ABG pO2 ABG HCO3 ABG O2 Saturation ABG Base Excess ABG Hemoglobin VBG pH Oxyhemoglobin Sodium Potassium Chloride Carbon Dioxide BUN Creatinine Glucose POC Glucose 113 H 118 H Lactic Acid Calcium Phosphorus Total Bilirubin AST ALT C-Reactive Protein Total Protein Albumin Triglycerides Amylase Lipase Urine WBC (Auto) Vancomycin Trough 22.5 H Crossmatch 12/25/17 12/25/17 12/25/17 17:59 21:33 Unknown WBC 20.5 H RBC 2.75 L Hgb 9.1 L Hct 27.1 L MCV 99 H MCH 33 H MCHC RDW Plt Count 126 L Lymph % (Auto) [place] % (Auto) Eos % (Auto) [place] # Eos # Baso # Seg Neutrophils % Seg Neuts % (Manual) 89.0 H Lymphocytes % (Manual) 6.0 L Monocytes % (Manual) Eosinophils % (Manual) Nucleated RBC % Seg Neutrophils # Seg Neutrophils # Man 18.2 H Lymphocytes # (Manual) Monocytes # (Manual) Eosinophils # (Manual) APTT POC ABG pH ABG pH POC ABG pCO2 POC ABG pO2 ABG pO2 ABG HCO3 ABG O2 Saturation ABG Base Excess ABG Hemoglobin VBG pH Oxyhemoglobin Sodium Potassium Chloride Carbon Dioxide BUN Creatinine Glucose POC Glucose 145 H 167 H Lactic Acid Calcium Phosphorus Total Bilirubin AST ALT C-Reactive Protein Total Protein Albumin Triglycerides Amylase Lipase Urine WBC (Auto) Vancomycin Trough Crossmatch 12/25/17 12/26/17 12/26/17 Unknown 02:26 05:29 WBC RBC Hgb Hct MCV MCH MCHC RDW Plt Count Lymph % (Auto) [place] % (Auto) Eos % (Auto) [place] # Eos # Baso # Seg Neutrophils % Seg Neuts % (Manual) Lymphocytes % (Manual) Monocytes % (Manual) Eosinophils % (Manual) Nucleated RBC % Seg Neutrophils # Seg Neutrophils # Man Lymphocytes # (Manual) Monocytes # (Manual) Eosinophils # (Manual) APTT POC ABG pH ABG pH POC ABG pCO2 POC ABG pO2 ABG pO2 ABG HCO3 ABG O2 Saturation ABG Base Excess ABG Hemoglobin VBG pH Oxyhemoglobin Sodium Potassium 2.8 L* Chloride Carbon Dioxide BUN Creatinine 0.6 L Glucose POC Glucose 167 H 216 H Lactic Acid Calcium 7.4 L Phosphorus Total Bilirubin AST ALT C-Reactive Protein Total Protein Albumin Triglycerides Amylase Lipase Urine WBC (Auto) Vancomycin Trough Crossmatch 12/26/17 12/26/17 12/26/17 10:21 14:30 18:35 WBC RBC Hgb Hct MCV MCH MCHC RDW Plt Count Lymph % (Auto) [place] % (Auto) Eos % (Auto) [place] # Eos # Baso # Seg Neutrophils % Seg Neuts % (Manual) Lymphocytes % (Manual) Monocytes % (Manual) Eosinophils % (Manual) Nucleated RBC % Seg Neutrophils # Seg Neutrophils # Man Lymphocytes # (Manual) Monocytes # (Manual) Eosinophils # (Manual) APTT POC ABG pH ABG pH POC ABG pCO2 POC ABG pO2 ABG pO2 ABG HCO3 ABG O2 Saturation ABG Base Excess ABG Hemoglobin VBG pH Oxyhemoglobin Sodium Potassium Chloride Carbon Dioxide BUN Creatinine Glucose POC Glucose 164 H 157 H 146 H Lactic Acid Calcium Phosphorus Total Bilirubin AST ALT C-Reactive Protein Total Protein Albumin Triglycerides Amylase Lipase Urine WBC (Auto) Vancomycin Trough Crossmatch 12/26/17 12/26/17 12/27/17 21:21 Unknown 01:54 WBC RBC Hgb Hct MCV MCH MCHC RDW Plt Count Lymph % (Auto) [place] % (Auto) Eos % (Auto) [place] # Eos # Baso # Seg Neutrophils % Seg Neuts % (Manual) Lymphocytes % (Manual) Monocytes % (Manual) Eosinophils % (Manual) Nucleated RBC % Seg Neutrophils # Seg Neutrophils # Man Lymphocytes # (Manual) Monocytes # (Manual) Eosinophils # (Manual) APTT POC ABG pH ABG pH POC ABG pCO2 POC ABG pO2 ABG pO2 ABG HCO3 ABG O2 Saturation ABG Base Excess ABG Hemoglobin VBG pH Oxyhemoglobin Sodium Potassium 3.0 L Chloride Carbon Dioxide BUN Creatinine 0.5 L Glucose 166 H POC Glucose 132 H 157 H Lactic Acid Calcium 7.8 L Phosphorus Total Bilirubin AST ALT C-Reactive Protein Total Protein Albumin Triglycerides Amylase Lipase Urine WBC (Auto) Vancomycin Trough Crossmatch 12/27/17 12/27/17 12/27/17 05:20 05:20 05:44 WBC 26.4 H RBC 2.83 L Hgb 9.3 L Hct 27.6 L MCV 98 H MCH 33 H MCHC RDW Plt Count Lymph % (Auto) [place] % (Auto) Eos % (Auto) [place] # Eos # Baso # Seg Neutrophils % Seg Neuts % (Manual) 85.0 H Lymphocytes % (Manual) 5.0 L Monocytes % (Manual) Eosinophils % (Manual) Nucleated RBC % Seg Neutrophils # Seg Neutrophils # Man 22.4 H Lymphocytes # (Manual) Monocytes # (Manual) Eosinophils # (Manual) 0.5 H APTT POC ABG pH ABG pH POC ABG pCO2 POC ABG pO2 ABG pO2 ABG HCO3 ABG O2 Saturation ABG Base Excess ABG Hemoglobin VBG pH Oxyhemoglobin Sodium Potassium 2.3 L* D Chloride Carbon Dioxide BUN 7 L Creatinine 0.6 L Glucose 123 H POC Glucose 128 H Lactic Acid Calcium 8.1 L Phosphorus Total Bilirubin AST ALT C-Reactive Protein Total Protein Albumin Triglycerides Amylase Lipase Urine WBC (Auto) Vancomycin Trough Crossmatch 12/27/17 12/27/17 12/27/17 10:04 14:44 15:30 WBC RBC Hgb Hct MCV MCH MCHC RDW Plt Count Lymph % (Auto) [place] % (Auto) Eos % (Auto) [place] # Eos # Baso # Seg Neutrophils % Seg Neuts % (Manual) Lymphocytes % (Manual) Monocytes % (Manual) Eosinophils % (Manual) Nucleated RBC % Seg Neutrophils # Seg Neutrophils # Man Lymphocytes # (Manual) Monocytes # (Manual) Eosinophils # (Manual) APTT POC ABG pH ABG pH POC ABG pCO2 POC ABG pO2 ABG pO2 ABG HCO3 ABG O2 Saturation ABG Base Excess ABG Hemoglobin VBG pH Oxyhemoglobin Sodium Potassium 3.1 L D Chloride Carbon Dioxide BUN Creatinine Glucose POC Glucose 115 H 128 H Lactic Acid Calcium Phosphorus Total Bilirubin AST ALT C-Reactive Protein Total Protein Albumin Triglycerides Amylase Lipase Urine WBC (Auto) Vancomycin Trough Crossmatch 12/28/17 12/28/17 12/28/17 00:39 02:13 05:17 WBC RBC Hgb Hct MCV MCH MCHC RDW Plt Count Lymph % (Auto) [place] % (Auto) Eos % (Auto) [place] # Eos # Baso # Seg Neutrophils % Seg Neuts % (Manual) Lymphocytes % (Manual) Monocytes % (Manual) Eosinophils % (Manual) Nucleated RBC % Seg Neutrophils # Seg Neutrophils # Man Lymphocytes # (Manual) Monocytes # (Manual) Eosinophils # (Manual) APTT POC ABG pH ABG pH 7.497 H POC ABG pCO2 POC ABG pO2 ABG pO2 71.4 L ABG HCO3 29.9 H ABG O2 Saturation ABG Base Excess 6.2 H ABG Hemoglobin 7.9 L VBG pH Oxyhemoglobin 94.9 L Sodium Potassium Chloride Carbon Dioxide BUN Creatinine Glucose POC Glucose 112 H 108 H Lactic Acid Calcium Phosphorus Total Bilirubin AST ALT C-Reactive Protein Total Protein Albumin Triglycerides Amylase Lipase Urine WBC (Auto) Vancomycin Trough Crossmatch 12/28/17 12/28/17 12/28/17 08:47 08:47 09:10 WBC 28.1 H RBC 2.76 L Hgb 9.1 L Hct 27.0 L MCV 98 H MCH 33 H MCHC RDW Plt Count Lymph % (Auto) [place] % (Auto) Eos % (Auto) [place] # Eos # Baso # Seg Neutrophils % Seg Neuts % (Manual) Lymphocytes % (Manual) Monocytes % (Manual) Eosinophils % (Manual) Nucleated RBC % Seg Neutrophils # Seg Neutrophils # Man Lymphocytes # (Manual) Monocytes # (Manual) Eosinophils # (Manual) APTT POC ABG pH ABG pH POC ABG pCO2 POC ABG pO2 ABG pO2 ABG HCO3 ABG O2 Saturation ABG Base Excess ABG Hemoglobin VBG pH Oxyhemoglobin Sodium Potassium 2.2 L* D Chloride Carbon Dioxide BUN 5 L Creatinine 0.5 L Glucose 106 H POC Glucose Lactic Acid Calcium 8.3 L Phosphorus 2.20 L Total Bilirubin AST ALT C-Reactive Protein Total Protein Albumin Triglycerides Amylase Lipase Urine WBC (Auto) Vancomycin Trough Crossmatch 12/28/17 12/28/17 12/28/17 13:28 14:22 18:48 WBC RBC Hgb Hct MCV MCH MCHC RDW Plt Count Lymph % (Auto) [place] % (Auto) Eos % (Auto) [place] # Eos # Baso # Seg Neutrophils % Seg Neuts % (Manual) Lymphocytes % (Manual) Monocytes % (Manual) Eosinophils % (Manual) Nucleated RBC % Seg Neutrophils # Seg Neutrophils # Man Lymphocytes # (Manual) Monocytes # (Manual) Eosinophils # (Manual) APTT POC ABG pH ABG pH 7.476 H POC ABG pCO2 POC ABG pO2 ABG pO2 167.7 H ABG HCO3 30.9 H ABG O2 Saturation 99.1 H ABG Base Excess 6.7 H ABG Hemoglobin 8.5 L VBG pH Oxyhemoglobin Sodium Potassium Chloride Carbon Dioxide BUN Creatinine Glucose POC Glucose 141 H 129 H Lactic Acid Calcium Phosphorus Total Bilirubin AST ALT C-Reactive Protein Total Protein Albumin Triglycerides Amylase Lipase Urine WBC (Auto) Vancomycin Trough Crossmatch 12/28/17 12/29/17 12/29/17 21:22 02:45 05:11 WBC RBC Hgb Hct MCV MCH MCHC RDW Plt Count Lymph % (Auto) [place] % (Auto) Eos % (Auto) [place] # Eos # Baso # Seg Neutrophils % Seg Neuts % (Manual) Lymphocytes % (Manual) Monocytes % (Manual) Eosinophils % (Manual) Nucleated RBC % Seg Neutrophils # Seg Neutrophils # Man Lymphocytes # (Manual) Monocytes # (Manual) Eosinophils # (Manual) APTT POC ABG pH ABG pH POC ABG pCO2 POC ABG pO2 ABG pO2 ABG HCO3 ABG O2 Saturation ABG Base Excess ABG Hemoglobin VBG pH Oxyhemoglobin Sodium Potassium Chloride Carbon Dioxide BUN Creatinine Glucose POC Glucose 123 H 138 H 138 H Lactic Acid Calcium Phosphorus Total Bilirubin AST ALT C-Reactive Protein Total Protein Albumin Triglycerides Amylase Lipase Urine WBC (Auto) Vancomycin Trough Crossmatch 12/29/17 12/29/17 12/29/17 05:50 08:04 08:04 WBC 20.8 H RBC 2.26 L Hgb 7.5 L Hct 22.7 L MCV 100 H MCH 33 H MCHC RDW Plt Count Lymph % (Auto) [place] % (Auto) Eos % (Auto) [place] # Eos # Baso # Seg Neutrophils % Seg Neuts % (Manual) 93.0 H Lymphocytes % (Manual) 2.0 L Monocytes % (Manual) Eosinophils % (Manual) Nucleated RBC % Seg Neutrophils # Seg Neutrophils # Man 19.3 H Lymphocytes # (Manual) 0.4 L Monocytes # (Manual) Eosinophils # (Manual) 0.7 H APTT POC ABG pH ABG pH 7.467 H POC ABG pCO2 POC ABG pO2 ABG pO2 ABG HCO3 28.2 H ABG O2 Saturation ABG Base Excess 4.0 H ABG Hemoglobin < 5.1 L VBG pH Oxyhemoglobin Sodium Potassium 3.0 L D Chloride Carbon Dioxide BUN Creatinine 0.5 L Glucose 147 H POC Glucose Lactic Acid Calcium 7.8 L Phosphorus Total Bilirubin AST ALT C-Reactive Protein Total Protein 5.6 L Albumin 2.4 L Triglycerides Amylase Lipase Urine WBC (Auto) Vancomycin Trough Crossmatch 12/29/17 12/29/17 12/29/17 08:20 10:59 14:09 WBC RBC Hgb Hct MCV MCH MCHC RDW Plt Count Lymph % (Auto) [place] % (Auto) Eos % (Auto) [place] # Eos # Baso # Seg Neutrophils % Seg Neuts % (Manual) Lymphocytes % (Manual) Monocytes % (Manual) Eosinophils % (Manual) Nucleated RBC % Seg Neutrophils # Seg Neutrophils # Man Lymphocytes # (Manual) Monocytes # (Manual) Eosinophils # (Manual) APTT POC ABG pH ABG pH POC ABG pCO2 POC ABG pO2 ABG pO2 ABG HCO3 ABG O2 Saturation ABG Base Excess ABG Hemoglobin VBG pH Oxyhemoglobin Sodium Potassium Chloride Carbon Dioxide BUN Creatinine Glucose POC Glucose 153 H 186 H 183 H Lactic Acid Calcium Phosphorus Total Bilirubin AST ALT C-Reactive Protein Total Protein Albumin Triglycerides Amylase Lipase Urine WBC (Auto) Vancomycin Trough Crossmatch 12/29/17 12/29/17 12/29/17 18:03 22:05 22:56 WBC RBC Hgb Hct MCV MCH MCHC RDW Plt Count Lymph % (Auto) [place] % (Auto) Eos % (Auto) [place] # Eos # Baso # Seg Neutrophils % Seg Neuts % (Manual) Lymphocytes % (Manual) Monocytes % (Manual) Eosinophils % (Manual) Nucleated RBC % Seg Neutrophils # Seg Neutrophils # Man Lymphocytes # (Manual) Monocytes # (Manual) Eosinophils # (Manual) APTT POC ABG pH ABG pH POC ABG pCO2 POC ABG pO2 ABG pO2 ABG HCO3 ABG O2 Saturation ABG Base Excess ABG Hemoglobin VBG pH Oxyhemoglobin Sodium Potassium Chloride Carbon Dioxide BUN Creatinine Glucose POC Glucose 159 H 146 H 179 H Lactic Acid Calcium Phosphorus Total Bilirubin AST ALT C-Reactive Protein Total Protein Albumin Triglycerides Amylase Lipase Urine WBC (Auto) Vancomycin Trough Crossmatch 12/30/17 12/30/17 12/30/17 02:03 04:50 04:50 WBC 18.3 H RBC 2.22 L Hgb 7.4 L Hct 23.0 L MCV 104 H MCH 33 H MCHC RDW Plt Count 137 L Lymph % (Auto) 9.0 L [place] % (Auto) Eos % (Auto) [place] # Eos # 0.5 H Baso # Seg Neutrophils % 84.9 H Seg Neuts % (Manual) Lymphocytes % (Manual) Monocytes % (Manual) Eosinophils % (Manual) Nucleated RBC % Seg Neutrophils # 15.6 H Seg Neutrophils # Man Lymphocytes # (Manual) Monocytes # (Manual) Eosinophils # (Manual) APTT POC ABG pH ABG pH POC ABG pCO2 POC ABG pO2 ABG pO2 ABG HCO3 ABG O2 Saturation ABG Base Excess ABG Hemoglobin VBG pH Oxyhemoglobin Sodium 147 H Potassium 3.1 L D Chloride 107.5 H Carbon Dioxide BUN Creatinine 0.5 L Glucose 120 H POC Glucose 118 H Lactic Acid Calcium 7.4 L Phosphorus Total Bilirubin AST ALT C-Reactive Protein Total Protein Albumin Triglycerides Amylase Lipase Urine WBC (Auto) Vancomycin Trough Crossmatch 12/30/17 12/30/17 12/30/17 05:04 13:53 17:33 WBC RBC Hgb Hct MCV MCH MCHC RDW Plt Count Lymph % (Auto) [place] % (Auto) Eos % (Auto) [place] # Eos # Baso # Seg Neutrophils % Seg Neuts % (Manual) Lymphocytes % (Manual) Monocytes % (Manual) Eosinophils % (Manual) Nucleated RBC % Seg Neutrophils # Seg Neutrophils # Man Lymphocytes # (Manual) Monocytes # (Manual) Eosinophils # (Manual) APTT POC ABG pH ABG pH POC ABG pCO2 POC ABG pO2 ABG pO2 ABG HCO3 ABG O2 Saturation ABG Base Excess ABG Hemoglobin VBG pH Oxyhemoglobin Sodium Potassium Chloride Carbon Dioxide BUN Creatinine Glucose POC Glucose 150 H 113 H 145 H Lactic Acid Calcium Phosphorus Total Bilirubin AST ALT C-Reactive Protein Total Protein Albumin Triglycerides Amylase Lipase Urine WBC (Auto) Vancomycin Trough Crossmatch 12/31/17 12/31/17 12/31/17 01:54 03:15 03:15 WBC 17.1 H RBC 2.08 L Hgb 6.9 L Hct 20.6 L MCV 99 H MCH 33 H MCHC RDW 13.1 L Plt Count Lymph % (Auto) 10.5 L [place] % (Auto) Eos % (Auto) [place] # Eos # 0.6 H Baso # Seg Neutrophils % 82.3 H Seg Neuts % (Manual) Lymphocytes % (Manual) Monocytes % (Manual) Eosinophils % (Manual) Nucleated RBC % Seg Neutrophils # 14.0 H Seg Neutrophils # Man Lymphocytes # (Manual) Monocytes # (Manual) Eosinophils # (Manual) APTT POC ABG pH ABG pH POC ABG pCO2 POC ABG pO2 ABG pO2 ABG HCO3 ABG O2 Saturation ABG Base Excess ABG Hemoglobin VBG pH Oxyhemoglobin Sodium Potassium 3.5 L Chloride Carbon Dioxide BUN Creatinine 0.6 L Glucose POC Glucose 69 L Lactic Acid Calcium 7.8 L Phosphorus Total Bilirubin AST ALT C-Reactive Protein Total Protein Albumin Triglycerides Amylase Lipase Urine WBC (Auto) Vancomycin Trough Crossmatch 12/31/17 12/31/17 12/31/17 05:15 09:25 10:17 WBC RBC Hgb Hct MCV MCH MCHC RDW Plt Count Lymph % (Auto) [place] % (Auto) Eos % (Auto) [place] # Eos # Baso # Seg Neutrophils % Seg Neuts % (Manual) Lymphocytes % (Manual) Monocytes % (Manual) Eosinophils % (Manual) Nucleated RBC % Seg Neutrophils # Seg Neutrophils # Man Lymphocytes # (Manual) Monocytes # (Manual) Eosinophils # (Manual) APTT POC ABG pH ABG pH 7.516 H POC ABG pCO2 POC ABG pO2 ABG pO2 69.2 L ABG HCO3 28.7 H ABG O2 Saturation ABG Base Excess 5.3 H ABG Hemoglobin 6.6 L VBG pH Oxyhemoglobin 93.8 L Sodium Potassium Chloride Carbon Dioxide BUN Creatinine Glucose POC Glucose 143 H Lactic Acid Calcium Phosphorus Total Bilirubin AST ALT C-Reactive Protein Total Protein Albumin Triglycerides Amylase Lipase Urine WBC (Auto) Vancomycin Trough Crossmatch See Detail 12/31/17 12/31/17 12/31/17 14:20 18:30 21:40 WBC RBC Hgb Hct MCV MCH MCHC RDW Plt Count Lymph % (Auto) [place] % (Auto) Eos % (Auto) [place] # Eos # Baso # Seg Neutrophils % Seg Neuts % (Manual) Lymphocytes % (Manual) Monocytes % (Manual) Eosinophils % (Manual) Nucleated RBC % Seg Neutrophils # Seg Neutrophils # Man Lymphocytes # (Manual) Monocytes # (Manual) Eosinophils # (Manual) APTT POC ABG pH ABG pH POC ABG pCO2 POC ABG pO2 ABG pO2 ABG HCO3 ABG O2 Saturation ABG Base Excess ABG Hemoglobin VBG pH Oxyhemoglobin Sodium Potassium Chloride Carbon Dioxide BUN Creatinine Glucose POC Glucose 175 H 137 H 182 H Lactic Acid Calcium Phosphorus Total Bilirubin AST ALT C-Reactive Protein Total Protein Albumin Triglycerides Amylase Lipase Urine WBC (Auto) Vancomycin Trough Crossmatch 12/31/17 01/01/18 01/01/18 23:34 02:09 04:00 WBC 16.4 H RBC 2.41 L Hgb 7.8 L Hct 23.6 L MCV 98 H MCH 33 H MCHC RDW Plt Count Lymph % (Auto) 10.7 L [place] % (Auto) Eos % (Auto) [place] # Eos # 0.7 H Baso # 0.2 H Seg Neutrophils % 79.0 H Seg Neuts % (Manual) Lymphocytes % (Manual) Monocytes % (Manual) Eosinophils % (Manual) Nucleated RBC % Seg Neutrophils # 12.9 H Seg Neutrophils # Man Lymphocytes # (Manual) Monocytes # (Manual) Eosinophils # (Manual) APTT POC ABG pH ABG pH POC ABG pCO2 POC ABG pO2 ABG pO2 ABG HCO3 ABG O2 Saturation ABG Base Excess ABG Hemoglobin VBG pH Oxyhemoglobin Sodium Potassium Chloride Carbon Dioxide BUN Creatinine Glucose POC Glucose 132 H 117 H Lactic Acid Calcium Phosphorus Total Bilirubin AST ALT C-Reactive Protein Total Protein Albumin Triglycerides Amylase Lipase Urine WBC (Auto) Vancomycin Trough Crossmatch 01/01/18 01/01/18 01/01/18 04:00 04:04 05:32 WBC RBC Hgb Hct MCV MCH MCHC RDW Plt Count Lymph % (Auto) [place] % (Auto) Eos % (Auto) [place] # Eos # Baso # Seg Neutrophils % Seg Neuts % (Manual) Lymphocytes % (Manual) Monocytes % (Manual) Eosinophils % (Manual) Nucleated RBC % Seg Neutrophils # Seg Neutrophils # Man Lymphocytes # (Manual) Monocytes # (Manual) Eosinophils # (Manual) APTT POC ABG pH ABG pH 7.458 H POC ABG pCO2 POC ABG pO2 ABG pO2 67.5 L ABG HCO3 27.5 H ABG O2 Saturation 94.4 L ABG Base Excess 3.4 H ABG Hemoglobin 7.8 L VBG pH Oxyhemoglobin 92.1 L Sodium Potassium Chloride Carbon Dioxide BUN Creatinine 0.4 L Glucose 129 H POC Glucose 129 H Lactic Acid Calcium 7.9 L Phosphorus Total Bilirubin AST ALT C-Reactive Protein Total Protein Albumin Triglycerides Amylase Lipase Urine WBC (Auto) Vancomycin Trough Crossmatch 01/01/18 01/01/18 01/01/18 10:10 12:38 17:27 WBC RBC Hgb Hct MCV MCH MCHC RDW Plt Count Lymph % (Auto) [place] % (Auto) Eos % (Auto) [place] # Eos # Baso # Seg Neutrophils % Seg Neuts % (Manual) Lymphocytes % (Manual) Monocytes % (Manual) Eosinophils % (Manual) Nucleated RBC % Seg Neutrophils # Seg Neutrophils # Man Lymphocytes # (Manual) Monocytes # (Manual) Eosinophils # (Manual) APTT POC ABG pH ABG pH POC ABG pCO2 POC ABG pO2 ABG pO2 ABG HCO3 ABG O2 Saturation ABG Base Excess ABG Hemoglobin VBG pH Oxyhemoglobin Sodium Potassium Chloride Carbon Dioxide BUN Creatinine Glucose POC Glucose 155 H 179 H 152 H Lactic Acid Calcium Phosphorus Total Bilirubin AST ALT C-Reactive Protein Total Protein Albumin Triglycerides Amylase Lipase Urine WBC (Auto) Vancomycin Trough Crossmatch 01/01/18 01/02/18 01/02/18 21:36 01:42 04:10 WBC 12.1 H RBC 2.29 L Hgb 7.5 L Hct 22.7 L MCV 99 H MCH 33 H MCHC RDW Plt Count Lymph % (Auto) [place] % (Auto) Eos % (Auto) 5.5 H [place] # 0.9 H Eos # 0.7 H Baso # Seg Neutrophils % Seg Neuts % (Manual) Lymphocytes % (Manual) Monocytes % (Manual) Eosinophils % (Manual) Nucleated RBC % Seg Neutrophils # 8.3 H Seg Neutrophils # Man Lymphocytes # (Manual) Monocytes # (Manual) Eosinophils # (Manual) APTT POC ABG pH ABG pH POC ABG pCO2 POC ABG pO2 ABG pO2 ABG HCO3 ABG O2 Saturation ABG Base Excess ABG Hemoglobin VBG pH Oxyhemoglobin Sodium Potassium Chloride Carbon Dioxide BUN Creatinine Glucose POC Glucose 118 H 117 H Lactic Acid Calcium Phosphorus Total Bilirubin AST ALT C-Reactive Protein Total Protein Albumin Triglycerides Amylase Lipase Urine WBC (Auto) Vancomycin Trough Crossmatch 01/02/18 01/02/18 01/02/18 04:10 04:57 13:42 WBC RBC Hgb Hct MCV MCH MCHC RDW Plt Count Lymph % (Auto) [place] % (Auto) Eos % (Auto) [place] # Eos # Baso # Seg Neutrophils % Seg Neuts % (Manual) Lymphocytes % (Manual) Monocytes % (Manual) Eosinophils % (Manual) Nucleated RBC % Seg Neutrophils # Seg Neutrophils # Man Lymphocytes # (Manual) Monocytes # (Manual) Eosinophils # (Manual) APTT POC ABG pH ABG pH POC ABG pCO2 POC ABG pO2 ABG pO2 ABG HCO3 ABG O2 Saturation ABG Base Excess ABG Hemoglobin VBG pH Oxyhemoglobin Sodium Potassium Chloride 97.0 L Carbon Dioxide BUN Creatinine 0.4 L Glucose POC Glucose 107 H 133 H Lactic Acid Calcium 8.1 L Phosphorus Total Bilirubin AST ALT C-Reactive Protein Total Protein 6.0 L Albumin 2.5 L Triglycerides Amylase Lipase Urine WBC (Auto) Vancomycin Trough Crossmatch 01/02/18 01/02/18 01/03/18 17:33 22:11 02:18 WBC RBC Hgb Hct MCV MCH MCHC RDW Plt Count Lymph % (Auto) [place] % (Auto) Eos % (Auto) [place] # Eos # Baso # Seg Neutrophils % Seg Neuts % (Manual) Lymphocytes % (Manual) Monocytes % (Manual) Eosinophils % (Manual) Nucleated RBC % Seg Neutrophils # Seg Neutrophils # Man Lymphocytes # (Manual) Monocytes # (Manual) Eosinophils # (Manual) APTT POC ABG pH ABG pH POC ABG pCO2 POC ABG pO2 ABG pO2 ABG HCO3 ABG O2 Saturation ABG Base Excess ABG Hemoglobin VBG pH Oxyhemoglobin Sodium Potassium Chloride Carbon Dioxide BUN Creatinine Glucose POC Glucose 146 H 171 H 162 H Lactic Acid Calcium Phosphorus Total Bilirubin AST ALT C-Reactive Protein Total Protein Albumin Triglycerides Amylase Lipase Urine WBC (Auto) Vancomycin Trough Crossmatch 01/03/18 01/03/18 01/03/18 04:56 05:21 17:20 WBC RBC Hgb Hct MCV MCH MCHC RDW Plt Count Lymph % (Auto) [place] % (Auto) Eos % (Auto) [place] # Eos # Baso # Seg Neutrophils % Seg Neuts % (Manual) Lymphocytes % (Manual) Monocytes % (Manual) Eosinophils % (Manual) Nucleated RBC % Seg Neutrophils # Seg Neutrophils # Man Lymphocytes # (Manual) Monocytes # (Manual) Eosinophils # (Manual) APTT POC ABG pH ABG pH POC ABG pCO2 POC ABG pO2 ABG pO2 79.5 L ABG HCO3 31.4 H ABG O2 Saturation ABG Base Excess 6.3 H ABG Hemoglobin 10.4 L VBG pH Oxyhemoglobin 94.2 L Sodium Potassium Chloride Carbon Dioxide BUN Creatinine Glucose POC Glucose 163 H 153 H Lactic Acid Calcium Phosphorus Total Bilirubin AST ALT C-Reactive Protein Total Protein Albumin Triglycerides Amylase Lipase Urine WBC (Auto) Vancomycin Trough Crossmatch 01/03/18 01/03/18 01/04/18 17:50 19:52 00:40 WBC RBC Hgb Hct MCV MCH MCHC RDW Plt Count Lymph % (Auto) [place] % (Auto) Eos % (Auto) [place] # Eos # Baso # Seg Neutrophils % Seg Neuts % (Manual) Lymphocytes % (Manual) Monocytes % (Manual) Eosinophils % (Manual) Nucleated RBC % Seg Neutrophils # Seg Neutrophils # Man Lymphocytes # (Manual) Monocytes # (Manual) Eosinophils # (Manual) APTT POC ABG pH ABG pH POC ABG pCO2 POC ABG pO2 ABG pO2 ABG HCO3 ABG O2 Saturation ABG Base Excess ABG Hemoglobin VBG pH Oxyhemoglobin Sodium Potassium Chloride Carbon Dioxide BUN Creatinine Glucose POC Glucose 157 H 147 H 158 H Lactic Acid Calcium Phosphorus Total Bilirubin AST ALT C-Reactive Protein Total Protein Albumin Triglycerides Amylase Lipase Urine WBC (Auto) Vancomycin Trough Crossmatch 01/04/18 01/04/18 01/04/18 04:01 05:13 06:12 WBC 11.5 H RBC 2.95 L Hgb 9.8 L Hct 29.5 L D MCV 100 H MCH 33 H MCHC RDW Plt Count Lymph % (Auto) [place] % (Auto) Eos % (Auto) [place] # Eos # Baso # Seg Neutrophils % Seg Neuts % (Manual) Lymphocytes % (Manual) Monocytes % (Manual) Eosinophils % (Manual) 6.0 H Nucleated RBC % Seg Neutrophils # Seg Neutrophils # Man Lymphocytes # (Manual) Monocytes # (Manual) Eosinophils # (Manual) 0.7 H APTT POC ABG pH ABG pH 7.498 H POC ABG pCO2 POC ABG pO2 ABG pO2 129.5 H ABG HCO3 30.1 H ABG O2 Saturation ABG Base Excess 6.4 H ABG Hemoglobin 9.3 L VBG pH Oxyhemoglobin Sodium Potassium Chloride Carbon Dioxide BUN Creatinine Glucose POC Glucose 163 H Lactic Acid Calcium Phosphorus Total Bilirubin AST ALT C-Reactive Protein Total Protein Albumin Triglycerides Amylase Lipase Urine WBC (Auto) Vancomycin Trough Crossmatch 01/04/18 01/04/18 01/04/18 06:12 10:55 14:29 WBC RBC Hgb Hct MCV MCH MCHC RDW Plt Count Lymph % (Auto) [place] % (Auto) Eos % (Auto) [place] # Eos # Baso # Seg Neutrophils % Seg Neuts % (Manual) Lymphocytes % (Manual) Monocytes % (Manual) Eosinophils % (Manual) Nucleated RBC % Seg Neutrophils # Seg Neutrophils # Man Lymphocytes # (Manual) Monocytes # (Manual) Eosinophils # (Manual) APTT POC ABG pH ABG pH POC ABG pCO2 POC ABG pO2 ABG pO2 ABG HCO3 ABG O2 Saturation ABG Base Excess ABG Hemoglobin VBG pH Oxyhemoglobin Sodium Potassium Chloride Carbon Dioxide BUN Creatinine 0.5 L Glucose 174 H POC Glucose 187 H 144 H Lactic Acid Calcium Phosphorus Total Bilirubin AST 41 H ALT C-Reactive Protein Total Protein Albumin 2.9 L Triglycerides Amylase Lipase Urine WBC (Auto) Vancomycin Trough Crossmatch 01/04/18 01/04/18 01/05/18 17:25 21:56 01:59 WBC RBC Hgb Hct MCV MCH MCHC RDW Plt Count Lymph % (Auto) [place] % (Auto) Eos % (Auto) [place] # Eos # Baso # Seg Neutrophils % Seg Neuts % (Manual) Lymphocytes % (Manual) Monocytes % (Manual) Eosinophils % (Manual) Nucleated RBC % Seg Neutrophils # Seg Neutrophils # Man Lymphocytes # (Manual) Monocytes # (Manual) Eosinophils # (Manual) APTT POC ABG pH ABG pH POC ABG pCO2 POC ABG pO2 ABG pO2 ABG HCO3 ABG O2 Saturation ABG Base Excess ABG Hemoglobin VBG pH Oxyhemoglobin Sodium Potassium Chloride Carbon Dioxide BUN Creatinine Glucose POC Glucose 156 H 171 H 162 H Lactic Acid Calcium Phosphorus Total Bilirubin AST ALT C-Reactive Protein Total Protein Albumin Triglycerides Amylase Lipase Urine WBC (Auto) Vancomycin Trough Crossmatch 01/05/18 01/05/18 01/05/18 03:50 06:00 06:07 WBC RBC Hgb Hct MCV MCH MCHC RDW Plt Count Lymph % (Auto) [place] % (Auto) Eos % (Auto) [place] # Eos # Baso # Seg Neutrophils % Seg Neuts % (Manual) Lymphocytes % (Manual) Monocytes % (Manual) Eosinophils % (Manual) Nucleated RBC % Seg Neutrophils # Seg Neutrophils # Man Lymphocytes # (Manual) Monocytes # (Manual) Eosinophils # (Manual) APTT POC ABG pH ABG pH POC ABG pCO2 POC ABG pO2 ABG pO2 64.6 L ABG HCO3 30.2 H ABG O2 Saturation 91.3 L ABG Base Excess 5.5 H ABG Hemoglobin 10.1 L VBG pH Oxyhemoglobin 89.0 L Sodium Potassium Chloride Carbon Dioxide BUN Creatinine 0.4 L Glucose 144 H POC Glucose 136 H Lactic Acid Calcium Phosphorus Total Bilirubin AST ALT C-Reactive Protein Total Protein Albumin Triglycerides Amylase Lipase Urine WBC (Auto) Vancomycin Trough Crossmatch 01/05/18 01/05/18 01/05/18 10:46 14:03 17:31 WBC RBC Hgb Hct MCV MCH MCHC RDW Plt Count Lymph % (Auto) [place] % (Auto) Eos % (Auto) [place] # Eos # Baso # Seg Neutrophils % Seg Neuts % (Manual) Lymphocytes % (Manual) Monocytes % (Manual) Eosinophils % (Manual) Nucleated RBC % Seg Neutrophils # Seg Neutrophils # Man Lymphocytes # (Manual) Monocytes # (Manual) Eosinophils # (Manual) APTT POC ABG pH ABG pH POC ABG pCO2 POC ABG pO2 ABG pO2 ABG HCO3 ABG O2 Saturation ABG Base Excess ABG Hemoglobin VBG pH Oxyhemoglobin Sodium Potassium Chloride Carbon Dioxide BUN Creatinine Glucose POC Glucose 147 H 141 H 192 H Lactic Acid Calcium Phosphorus Total Bilirubin AST ALT C-Reactive Protein Total Protein Albumin Triglycerides Amylase Lipase Urine WBC (Auto) Vancomycin Trough Crossmatch 01/05/18 01/05/18 01/06/18 22:12 Unknown 01:58 WBC RBC Hgb Hct MCV MCH MCHC RDW Plt Count Lymph % (Auto) [place] % (Auto) Eos % (Auto) [place] # Eos # Baso # Seg Neutrophils % Seg Neuts % (Manual) Lymphocytes % (Manual) Monocytes % (Manual) Eosinophils % (Manual) Nucleated RBC % Seg Neutrophils # Seg Neutrophils # Man Lymphocytes # (Manual) Monocytes # (Manual) Eosinophils # (Manual) APTT POC ABG pH ABG pH 7.463 H POC ABG pCO2 POC ABG pO2 ABG pO2 74.0 L ABG HCO3 29.4 H ABG O2 Saturation ABG Base Excess 5.2 H ABG Hemoglobin 10.0 L VBG pH Oxyhemoglobin 93.4 L Sodium Potassium Chloride Carbon Dioxide BUN Creatinine Glucose POC Glucose 209 H 138 H Lactic Acid Calcium Phosphorus Total Bilirubin AST ALT C-Reactive Protein Total Protein Albumin Triglycerides Amylase Lipase Urine WBC (Auto) Vancomycin Trough Crossmatch 01/06/18 01/06/18 01/06/18 03:14 05:30 05:30 WBC 12.6 H RBC 3.16 L Hgb 10.4 L Hct 31.7 L MCV 100 H MCH 33 H MCHC RDW 15.5 H Plt Count Lymph % (Auto) [place] % (Auto) Eos % (Auto) [place] # Eos # Baso # Seg Neutrophils % Seg Neuts % (Manual) 72.0 H Lymphocytes % (Manual) Monocytes % (Manual) 9.0 H Eosinophils % (Manual) Nucleated RBC % 1.0 H Seg Neutrophils # Seg Neutrophils # Man 9.1 H Lymphocytes # (Manual) Monocytes # (Manual) 1.1 H Eosinophils # (Manual) APTT POC ABG pH ABG pH POC ABG pCO2 POC ABG pO2 ABG pO2 ABG HCO3 28.8 H ABG O2 Saturation ABG Base Excess 4.2 H ABG Hemoglobin 9.3 L VBG pH Oxyhemoglobin 94.7 L Sodium 136 L Potassium Chloride 94.2 L Carbon Dioxide BUN Creatinine 0.4 L Glucose 146 H POC Glucose Lactic Acid Calcium Phosphorus Total Bilirubin AST ALT C-Reactive Protein Total Protein Albumin 3.1 L Triglycerides Amylase Lipase Urine WBC (Auto) Vancomycin Trough Crossmatch 01/06/18 01/06/18 01/06/18 05:42 10:00 14:40 WBC RBC Hgb Hct MCV MCH MCHC RDW Plt Count Lymph % (Auto) [place] % (Auto) Eos % (Auto) [place] # Eos # Baso # Seg Neutrophils % Seg Neuts % (Manual) Lymphocytes % (Manual) Monocytes % (Manual) Eosinophils % (Manual) Nucleated RBC % Seg Neutrophils # Seg Neutrophils # Man Lymphocytes # (Manual) Monocytes # (Manual) Eosinophils # (Manual) APTT POC ABG pH ABG pH POC ABG pCO2 POC ABG pO2 ABG pO2 ABG HCO3 ABG O2 Saturation ABG Base Excess ABG Hemoglobin VBG pH Oxyhemoglobin Sodium Potassium Chloride Carbon Dioxide BUN Creatinine Glucose POC Glucose 158 H 155 H 115 H Lactic Acid Calcium Phosphorus Total Bilirubin AST ALT C-Reactive Protein Total Protein Albumin Triglycerides Amylase Lipase Urine WBC (Auto) Vancomycin Trough Crossmatch 01/06/18 01/06/18 01/07/18 17:45 21:59 05:29 WBC RBC Hgb Hct MCV MCH MCHC RDW Plt Count Lymph % (Auto) [place] % (Auto) Eos % (Auto) [place] # Eos # Baso # Seg Neutrophils % Seg Neuts % (Manual) Lymphocytes % (Manual) Monocytes % (Manual) Eosinophils % (Manual) Nucleated RBC % Seg Neutrophils # Seg Neutrophils # Man Lymphocytes # (Manual) Monocytes # (Manual) Eosinophils # (Manual) APTT POC ABG pH ABG pH POC ABG pCO2 POC ABG pO2 ABG pO2 ABG HCO3 ABG O2 Saturation ABG Base Excess ABG Hemoglobin VBG pH Oxyhemoglobin Sodium Potassium Chloride Carbon Dioxide BUN Creatinine Glucose POC Glucose 156 H 177 H 179 H Lactic Acid Calcium Phosphorus Total Bilirubin AST ALT C-Reactive Protein Total Protein Albumin Triglycerides Amylase Lipase Urine WBC (Auto) Vancomycin Trough Crossmatch 01/07/18 01/07/18 01/07/18 10:00 14:32 18:05 WBC RBC Hgb Hct MCV MCH MCHC RDW Plt Count Lymph % (Auto) [place] % (Auto) Eos % (Auto) [place] # Eos # Baso # Seg Neutrophils % Seg Neuts % (Manual) Lymphocytes % (Manual) Monocytes % (Manual) Eosinophils % (Manual) Nucleated RBC % Seg Neutrophils # Seg Neutrophils # Man Lymphocytes # (Manual) Monocytes # (Manual) Eosinophils # (Manual) APTT POC ABG pH ABG pH POC ABG pCO2 POC ABG pO2 ABG pO2 ABG HCO3 ABG O2 Saturation ABG Base Excess ABG Hemoglobin VBG pH Oxyhemoglobin Sodium Potassium Chloride Carbon Dioxide BUN Creatinine Glucose POC Glucose 131 H 177 H 143 H Lactic Acid Calcium Phosphorus Total Bilirubin AST ALT C-Reactive Protein Total Protein Albumin Triglycerides Amylase Lipase Urine WBC (Auto) Vancomycin Trough Crossmatch 01/07/18 01/08/18 01/08/18 22:11 02:26 05:37 WBC RBC Hgb Hct MCV MCH MCHC RDW Plt Count Lymph % (Auto) [place] % (Auto) Eos % (Auto) [place] # Eos # Baso # Seg Neutrophils % Seg Neuts % (Manual) Lymphocytes % (Manual) Monocytes % (Manual) Eosinophils % (Manual) Nucleated RBC % Seg Neutrophils # Seg Neutrophils # Man Lymphocytes # (Manual) Monocytes # (Manual) Eosinophils # (Manual) APTT POC ABG pH ABG pH POC ABG pCO2 POC ABG pO2 ABG pO2 ABG HCO3 ABG O2 Saturation ABG Base Excess ABG Hemoglobin VBG pH Oxyhemoglobin Sodium Potassium Chloride Carbon Dioxide BUN Creatinine Glucose POC Glucose 133 H 194 H 106 H Lactic Acid Calcium Phosphorus Total Bilirubin AST ALT C-Reactive Protein Total Protein Albumin Triglycerides Amylase Lipase Urine WBC (Auto) Vancomycin Trough Crossmatch 01/08/18 01/08/18 01/08/18 09:41 10:45 10:45 WBC 11.6 H RBC 3.21 L Hgb 10.5 L Hct 32.0 L MCV 100 H MCH 33 H MCHC RDW 15.7 H Plt Count Lymph % (Auto) [place] % (Auto) Eos % (Auto) [place] # Eos # Baso # Seg Neutrophils % Seg Neuts % (Manual) Lymphocytes % (Manual) Monocytes % (Manual) Eosinophils % (Manual) Nucleated RBC % Seg Neutrophils # Seg Neutrophils # Man Lymphocytes # (Manual) Monocytes # (Manual) Eosinophils # (Manual) APTT POC ABG pH ABG pH POC ABG pCO2 POC ABG pO2 ABG pO2 ABG HCO3 ABG O2 Saturation ABG Base Excess ABG Hemoglobin VBG pH Oxyhemoglobin Sodium Potassium Chloride 96.4 L Carbon Dioxide BUN Creatinine 0.4 L Glucose 146 H POC Glucose 142 H Lactic Acid Calcium Phosphorus Total Bilirubin AST ALT C-Reactive Protein Total Protein Albumin Triglycerides Amylase Lipase Urine WBC (Auto) Vancomycin Trough Crossmatch 01/08/18 01/08/18 01/08/18 14:31 17:20 21:46 WBC RBC Hgb Hct MCV MCH MCHC RDW Plt Count Lymph % (Auto) [place] % (Auto) Eos % (Auto) [place] # Eos # Baso # Seg Neutrophils % Seg Neuts % (Manual) Lymphocytes % (Manual) Monocytes % (Manual) Eosinophils % (Manual) Nucleated RBC % Seg Neutrophils # Seg Neutrophils # Man Lymphocytes # (Manual) Monocytes # (Manual) Eosinophils # (Manual) APTT POC ABG pH ABG pH POC ABG pCO2 POC ABG pO2 ABG pO2 ABG HCO3 ABG O2 Saturation ABG Base Excess ABG Hemoglobin VBG pH Oxyhemoglobin Sodium Potassium Chloride Carbon Dioxide BUN Creatinine Glucose POC Glucose 158 H 160 H 166 H Lactic Acid Calcium Phosphorus Total Bilirubin AST ALT C-Reactive Protein Total Protein Albumin Triglycerides Amylase Lipase Urine WBC (Auto) Vancomycin Trough Crossmatch 01/09/18 01/09/18 01/09/18 02:01 04:30 04:30 WBC RBC 3.21 L Hgb 10.9 L Hct 31.7 L MCV 99 H MCH 34 H MCHC RDW 15.8 H Plt Count Lymph % (Auto) [place] % (Auto) Eos % (Auto) [place] # Eos # Baso # Seg Neutrophils % Seg Neuts % (Manual) Lymphocytes % (Manual) Monocytes % (Manual) Eosinophils % (Manual) Nucleated RBC % Seg Neutrophils # Seg Neutrophils # Man Lymphocytes # (Manual) Monocytes # (Manual) Eosinophils # (Manual) APTT POC ABG pH ABG pH POC ABG pCO2 POC ABG pO2 ABG pO2 ABG HCO3 ABG O2 Saturation ABG Base Excess ABG Hemoglobin VBG pH Oxyhemoglobin Sodium 135 L Potassium Chloride 93.8 L Carbon Dioxide BUN Creatinine 0.5 L Glucose 137 H POC Glucose 155 H Lactic Acid Calcium Phosphorus Total Bilirubin AST ALT C-Reactive Protein Total Protein Albumin Triglycerides Amylase Lipase Urine WBC (Auto) Vancomycin Trough Crossmatch 01/09/18 01/09/18 01/09/18 05:42 10:41 14:01 WBC RBC Hgb Hct MCV MCH MCHC RDW Plt Count Lymph % (Auto) [place] % (Auto) Eos % (Auto) [place] # Eos # Baso # Seg Neutrophils % Seg Neuts % (Manual) Lymphocytes % (Manual) Monocytes % (Manual) Eosinophils % (Manual) Nucleated RBC % Seg Neutrophils # Seg Neutrophils # Man Lymphocytes # (Manual) Monocytes # (Manual) Eosinophils # (Manual) APTT POC ABG pH ABG pH POC ABG pCO2 POC ABG pO2 ABG pO2 ABG HCO3 ABG O2 Saturation ABG Base Excess ABG Hemoglobin VBG pH Oxyhemoglobin Sodium Potassium Chloride Carbon Dioxide BUN Creatinine Glucose POC Glucose 142 H 187 H 138 H Lactic Acid Calcium Phosphorus Total Bilirubin AST ALT C-Reactive Protein Total Protein Albumin Triglycerides Amylase Lipase Urine WBC (Auto) Vancomycin Trough Crossmatch 01/09/18 01/09/18 01/10/18 18:09 21:09 02:06 WBC RBC Hgb Hct MCV MCH MCHC RDW Plt Count Lymph % (Auto) [place] % (Auto) Eos % (Auto) [place] # Eos # Baso # Seg Neutrophils % Seg Neuts % (Manual) Lymphocytes % (Manual) Monocytes % (Manual) Eosinophils % (Manual) Nucleated RBC % Seg Neutrophils # Seg Neutrophils # Man Lymphocytes # (Manual) Monocytes # (Manual) Eosinophils # (Manual) APTT POC ABG pH ABG pH POC ABG pCO2 POC ABG pO2 ABG pO2 ABG HCO3 ABG O2 Saturation ABG Base Excess ABG Hemoglobin VBG pH Oxyhemoglobin Sodium Potassium Chloride Carbon Dioxide BUN Creatinine Glucose POC Glucose 143 H 188 H 160 H Lactic Acid Calcium Phosphorus Total Bilirubin AST ALT C-Reactive Protein Total Protein Albumin Triglycerides Amylase Lipase Urine WBC (Auto) Vancomycin Trough Crossmatch 01/10/18 01/10/18 01/10/18 05:58 09:54 13:58 WBC RBC Hgb Hct MCV MCH MCHC RDW Plt Count Lymph % (Auto) [place] % (Auto) Eos % (Auto) [place] # Eos # Baso # Seg Neutrophils % Seg Neuts % (Manual) Lymphocytes % (Manual) Monocytes % (Manual) Eosinophils % (Manual) Nucleated RBC % Seg Neutrophils # Seg Neutrophils # Man Lymphocytes # (Manual) Monocytes # (Manual) Eosinophils # (Manual) APTT POC ABG pH ABG pH POC ABG pCO2 POC ABG pO2 ABG pO2 ABG HCO3 ABG O2 Saturation ABG Base Excess ABG Hemoglobin VBG pH Oxyhemoglobin Sodium Potassium Chloride Carbon Dioxide BUN Creatinine Glucose POC Glucose 134 H 162 H 152 H Lactic Acid Calcium Phosphorus Total Bilirubin AST ALT C-Reactive Protein Total Protein Albumin Triglycerides Amylase Lipase Urine WBC (Auto) Vancomycin Trough Crossmatch 01/10/18 01/10/18 01/11/18 16:56 21:57 02:22 WBC RBC Hgb Hct MCV MCH MCHC RDW Plt Count Lymph % (Auto) [place] % (Auto) Eos % (Auto) [place] # Eos # Baso # Seg Neutrophils % Seg Neuts % (Manual) Lymphocytes % (Manual) Monocytes % (Manual) Eosinophils % (Manual) Nucleated RBC % Seg Neutrophils # Seg Neutrophils # Man Lymphocytes # (Manual) Monocytes # (Manual) Eosinophils # (Manual) APTT POC ABG pH ABG pH POC ABG pCO2 POC ABG pO2 ABG pO2 ABG HCO3 ABG O2 Saturation ABG Base Excess ABG Hemoglobin VBG pH Oxyhemoglobin Sodium Potassium Chloride Carbon Dioxide BUN Creatinine Glucose POC Glucose 161 H 161 H 159 H Lactic Acid Calcium Phosphorus Total Bilirubin AST ALT C-Reactive Protein Total Protein Albumin Triglycerides Amylase Lipase Urine WBC (Auto) Vancomycin Trough Crossmatch 01/11/18 01/11/18 01/11/18 06:19 10:23 11:21 WBC 12.7 H RBC 3.50 L Hgb 11.5 L Hct 34.8 L MCV 99 H MCH 33 H MCHC RDW Plt Count Lymph % (Auto) [place] % (Auto) Eos % (Auto) [place] # Eos # Baso # Seg Neutrophils % Seg Neuts % (Manual) Lymphocytes % (Manual) Monocytes % (Manual) Eosinophils % (Manual) Nucleated RBC % Seg Neutrophils # Seg Neutrophils # Man Lymphocytes # (Manual) Monocytes # (Manual) Eosinophils # (Manual) APTT POC ABG pH ABG pH POC ABG pCO2 POC ABG pO2 ABG pO2 ABG HCO3 ABG O2 Saturation ABG Base Excess ABG Hemoglobin VBG pH Oxyhemoglobin Sodium Potassium Chloride Carbon Dioxide BUN Creatinine Glucose POC Glucose 174 H 172 H Lactic Acid Calcium Phosphorus Total Bilirubin AST ALT C-Reactive Protein Total Protein Albumin Triglycerides Amylase Lipase Urine WBC (Auto) Vancomycin Trough Crossmatch 01/11/18 01/11/18 01/11/18 11:21 14:00 17:19 WBC RBC Hgb Hct MCV MCH MCHC RDW Plt Count Lymph % (Auto) [place] % (Auto) Eos % (Auto) [place] # Eos # Baso # Seg Neutrophils % Seg Neuts % (Manual) Lymphocytes % (Manual) Monocytes % (Manual) Eosinophils % (Manual) Nucleated RBC % Seg Neutrophils # Seg Neutrophils # Man Lymphocytes # (Manual) Monocytes # (Manual) Eosinophils # (Manual) APTT POC ABG pH ABG pH POC ABG pCO2 POC ABG pO2 ABG pO2 ABG HCO3 ABG O2 Saturation ABG Base Excess ABG Hemoglobin VBG pH Oxyhemoglobin Sodium 133 L Potassium Chloride 92.9 L Carbon Dioxide BUN Creatinine 0.4 L Glucose 156 H POC Glucose 152 H 177 H Lactic Acid Calcium Phosphorus Total Bilirubin AST ALT C-Reactive Protein Total Protein Albumin Triglycerides Amylase Lipase Urine WBC (Auto) Vancomycin Trough Crossmatch 01/11/18 01/12/18 01/12/18 22:20 02:09 05:50 WBC RBC Hgb Hct MCV MCH MCHC RDW Plt Count Lymph % (Auto) [place] % (Auto) Eos % (Auto) [place] # Eos # Baso # Seg Neutrophils % Seg Neuts % (Manual) Lymphocytes % (Manual) Monocytes % (Manual) Eosinophils % (Manual) Nucleated RBC % Seg Neutrophils # Seg Neutrophils # Man Lymphocytes # (Manual) Monocytes # (Manual) Eosinophils # (Manual) APTT POC ABG pH ABG pH POC ABG pCO2 POC ABG pO2 ABG pO2 ABG HCO3 ABG O2 Saturation ABG Base Excess ABG Hemoglobin VBG pH Oxyhemoglobin Sodium Potassium Chloride Carbon Dioxide BUN Creatinine Glucose POC Glucose 208 H 179 H 165 H Lactic Acid Calcium Phosphorus Total Bilirubin AST ALT C-Reactive Protein Total Protein Albumin Triglycerides Amylase Lipase Urine WBC (Auto) Vancomycin Trough Crossmatch 01/12/18 01/12/18 01/12/18 09:31 13:23 17:35 WBC RBC Hgb Hct MCV MCH MCHC RDW Plt Count Lymph % (Auto) [place] % (Auto) Eos % (Auto) [place] # Eos # Baso # Seg Neutrophils % Seg Neuts % (Manual) Lymphocytes % (Manual) Monocytes % (Manual) Eosinophils % (Manual) Nucleated RBC % Seg Neutrophils # Seg Neutrophils # Man Lymphocytes # (Manual) Monocytes # (Manual) Eosinophils # (Manual) APTT POC ABG pH ABG pH POC ABG pCO2 POC ABG pO2 ABG pO2 ABG HCO3 ABG O2 Saturation ABG Base Excess ABG Hemoglobin VBG pH Oxyhemoglobin Sodium Potassium Chloride Carbon Dioxide BUN Creatinine Glucose POC Glucose 142 H 138 H 172 H Lactic Acid Calcium Phosphorus Total Bilirubin AST ALT C-Reactive Protein Total Protein Albumin Triglycerides Amylase Lipase Urine WBC (Auto) Vancomycin Trough Crossmatch 01/12/18 01/13/18 01/13/18 22:03 01:56 05:00 WBC RBC 3.50 L Hgb Hct 34.1 L MCV 98 H MCH 34 H MCHC 35 H RDW Plt Count Lymph % (Auto) [place] % (Auto) Eos % (Auto) [place] # Eos # Baso # Seg Neutrophils % Seg Neuts % (Manual) Lymphocytes % (Manual) Monocytes % (Manual) Eosinophils % (Manual) Nucleated RBC % Seg Neutrophils # Seg Neutrophils # Man Lymphocytes # (Manual) Monocytes # (Manual) Eosinophils # (Manual) APTT POC ABG pH ABG pH POC ABG pCO2 POC ABG pO2 ABG pO2 ABG HCO3 ABG O2 Saturation ABG Base Excess ABG Hemoglobin VBG pH Oxyhemoglobin Sodium Potassium Chloride Carbon Dioxide BUN Creatinine Glucose POC Glucose 166 H 129 H Lactic Acid Calcium Phosphorus Total Bilirubin AST ALT C-Reactive Protein Total Protein Albumin Triglycerides Amylase Lipase Urine WBC (Auto) Vancomycin Trough Crossmatch 01/13/18 01/13/18 01/13/18 05:00 05:06 09:44 WBC RBC Hgb Hct MCV MCH MCHC RDW Plt Count Lymph % (Auto) [place] % (Auto) Eos % (Auto) [place] # Eos # Baso # Seg Neutrophils % Seg Neuts % (Manual) Lymphocytes % (Manual) Monocytes % (Manual) Eosinophils % (Manual) Nucleated RBC % Seg Neutrophils # Seg Neutrophils # Man Lymphocytes # (Manual) Monocytes # (Manual) Eosinophils # (Manual) APTT POC ABG pH ABG pH POC ABG pCO2 POC ABG pO2 ABG pO2 ABG HCO3 ABG O2 Saturation ABG Base Excess ABG Hemoglobin VBG pH Oxyhemoglobin Sodium 136 L Potassium Chloride 95.5 L Carbon Dioxide BUN Creatinine 0.4 L Glucose 165 H POC Glucose 188 H 132 H Lactic Acid Calcium Phosphorus Total Bilirubin AST ALT C-Reactive Protein Total Protein Albumin Triglycerides Amylase Lipase Urine WBC (Auto) Vancomycin Trough Crossmatch 01/13/18 01/13/18 01/13/18 13:53 18:06 21:26 WBC RBC Hgb Hct MCV MCH MCHC RDW Plt Count Lymph % (Auto) [place] % (Auto) Eos % (Auto) [place] # Eos # Baso # Seg Neutrophils % Seg Neuts % (Manual) Lymphocytes % (Manual) Monocytes % (Manual) Eosinophils % (Manual) Nucleated RBC % Seg Neutrophils # Seg Neutrophils # Man Lymphocytes # (Manual) Monocytes # (Manual) Eosinophils # (Manual) APTT POC ABG pH ABG pH POC ABG pCO2 POC ABG pO2 ABG pO2 ABG HCO3 ABG O2 Saturation ABG Base Excess ABG Hemoglobin VBG pH Oxyhemoglobin Sodium Potassium Chloride Carbon Dioxide BUN Creatinine Glucose POC Glucose 137 H 142 H 129 H Lactic Acid Calcium Phosphorus Total Bilirubin AST ALT C-Reactive Protein Total Protein Albumin Triglycerides Amylase Lipase Urine WBC (Auto) Vancomycin Trough Crossmatch 01/14/18 01/14/18 01/14/18 04:30 04:30 05:31 WBC 16.5 H RBC 3.55 L Hgb 11.7 L Hct 35.1 L MCV 99 H MCH 33 H MCHC RDW 15.4 H Plt Count Lymph % (Auto) [place] % (Auto) Eos % (Auto) [place] # Eos # Baso # Seg Neutrophils % Seg Neuts % (Manual) Lymphocytes % (Manual) Monocytes % (Manual) Eosinophils % (Manual) Nucleated RBC % Seg Neutrophils # Seg Neutrophils # Man Lymphocytes # (Manual) Monocytes # (Manual) Eosinophils # (Manual) APTT POC ABG pH ABG pH POC ABG pCO2 POC ABG pO2 ABG pO2 ABG HCO3 ABG O2 Saturation ABG Base Excess ABG Hemoglobin VBG pH Oxyhemoglobin Sodium Potassium Chloride 93.8 L Carbon Dioxide BUN Creatinine 0.5 L Glucose POC Glucose 119 H Lactic Acid Calcium Phosphorus Total Bilirubin AST ALT C-Reactive Protein Total Protein Albumin Triglycerides Amylase Lipase Urine WBC (Auto) Vancomycin Trough Crossmatch 01/14/18 01/14/18 01/14/18 10:08 17:27 22:07 WBC RBC Hgb Hct MCV MCH MCHC RDW Plt Count Lymph % (Auto) [place] % (Auto) Eos % (Auto) [place] # Eos # Baso # Seg Neutrophils % Seg Neuts % (Manual) Lymphocytes % (Manual) Monocytes % (Manual) Eosinophils % (Manual) Nucleated RBC % Seg Neutrophils # Seg Neutrophils # Man Lymphocytes # (Manual) Monocytes # (Manual) Eosinophils # (Manual) APTT POC ABG pH ABG pH POC ABG pCO2 POC ABG pO2 ABG pO2 ABG HCO3 ABG O2 Saturation ABG Base Excess ABG Hemoglobin VBG pH Oxyhemoglobin Sodium Potassium Chloride Carbon Dioxide BUN Creatinine Glucose POC Glucose 119 H 113 H 138 H Lactic Acid Calcium Phosphorus Total Bilirubin AST ALT C-Reactive Protein Total Protein Albumin Triglycerides Amylase Lipase Urine WBC (Auto) Vancomycin Trough Crossmatch 01/15/18 01/15/18 01/15/18 02:12 05:36 08:02 WBC 12.8 H RBC 3.41 L Hgb 11.1 L Hct 33.6 L MCV 99 H MCH 33 H MCHC RDW Plt Count Lymph % (Auto) [place] % (Auto) 7.8 H Eos % (Auto) [place] # 1.0 H Eos # Baso # Seg Neutrophils % 72.8 H Seg Neuts % (Manual) Lymphocytes % (Manual) Monocytes % (Manual) Eosinophils % (Manual) Nucleated RBC % Seg Neutrophils # 9.3 H Seg Neutrophils # Man Lymphocytes # (Manual) Monocytes # (Manual) Eosinophils # (Manual) APTT POC ABG pH ABG pH POC ABG pCO2 POC ABG pO2 ABG pO2 ABG HCO3 ABG O2 Saturation ABG Base Excess ABG Hemoglobin VBG pH Oxyhemoglobin Sodium Potassium Chloride Carbon Dioxide BUN Creatinine Glucose POC Glucose 147 H 138 H Lactic Acid Calcium Phosphorus Total Bilirubin AST ALT C-Reactive Protein Total Protein Albumin Triglycerides Amylase Lipase Urine WBC (Auto) Vancomycin Trough Crossmatch 01/15/18 01/15/18 01/15/18 08:02 10:05 12:06 WBC RBC Hgb Hct MCV MCH MCHC RDW Plt Count Lymph % (Auto) [place] % (Auto) Eos % (Auto) [place] # Eos # Baso # Seg Neutrophils % Seg Neuts % (Manual) Lymphocytes % (Manual) Monocytes % (Manual) Eosinophils % (Manual) Nucleated RBC % Seg Neutrophils # Seg Neutrophils # Man Lymphocytes # (Manual) Monocytes # (Manual) Eosinophils # (Manual) APTT POC ABG pH ABG pH POC ABG pCO2 POC ABG pO2 ABG pO2 ABG HCO3 ABG O2 Saturation ABG Base Excess ABG Hemoglobin VBG pH Oxyhemoglobin Sodium 136 L Potassium Chloride 94.9 L Carbon Dioxide BUN Creatinine 0.4 L Glucose 142 H POC Glucose 136 H 133 H Lactic Acid Calcium Phosphorus Total Bilirubin AST ALT C-Reactive Protein Total Protein Albumin Triglycerides Amylase Lipase Urine WBC (Auto) Vancomycin Trough Crossmatch 01/15/18 01/15/18 01/16/18 14:16 21:59 01:58 WBC RBC Hgb Hct MCV MCH MCHC RDW Plt Count Lymph % (Auto) [place] % (Auto) Eos % (Auto) [place] # Eos # Baso # Seg Neutrophils % Seg Neuts % (Manual) Lymphocytes % (Manual) Monocytes % (Manual) Eosinophils % (Manual) Nucleated RBC % Seg Neutrophils # Seg Neutrophils # Man Lymphocytes # (Manual) Monocytes # (Manual) Eosinophils # (Manual) APTT POC ABG pH ABG pH POC ABG pCO2 POC ABG pO2 ABG pO2 ABG HCO3 ABG O2 Saturation ABG Base Excess ABG Hemoglobin VBG pH Oxyhemoglobin Sodium Potassium Chloride Carbon Dioxide BUN Creatinine Glucose POC Glucose 123 H 134 H 143 H Lactic Acid Calcium Phosphorus Total Bilirubin AST ALT C-Reactive Protein Total Protein Albumin Triglycerides Amylase Lipase Urine WBC (Auto) Vancomycin Trough Crossmatch 01/16/18 01/16/18 05:29 10:13 WBC RBC Hgb Hct MCV MCH MCHC RDW Plt Count Lymph % (Auto) [place] % (Auto) Eos % (Auto) [place] # Eos # Baso # Seg Neutrophils % Seg Neuts % (Manual) Lymphocytes % (Manual) Monocytes % (Manual) Eosinophils % (Manual) Nucleated RBC % Seg Neutrophils # Seg Neutrophils # Man Lymphocytes # (Manual) Monocytes # (Manual) Eosinophils # (Manual) APTT POC ABG pH ABG pH POC ABG pCO2 POC ABG pO2 ABG pO2 ABG HCO3 ABG O2 Saturation ABG Base Excess ABG Hemoglobin VBG pH Oxyhemoglobin Sodium Potassium Chloride Carbon Dioxide BUN Creatinine Glucose POC Glucose 145 H 117 H Lactic Acid Calcium Phosphorus Total Bilirubin AST ALT C-Reactive Protein Total Protein Albumin Triglycerides Amylase Lipase Urine WBC (Auto) Vancomycin Trough Crossmatch Chest x-ray: report reviewed, image reviewed
[2018-01-16] MEDS: LOVENOX SUB-Q SCH (22:42)
[2018-01-17] MEDS: HumaLOG SUB-Q SCH ×5 (03:11→23:29)
[2018-01-17] MEDS: DUONEB *Not for PRN Use IH SCH ×3 (07:32→20:23)
[2018-01-17 07:39] LABS: Basophils # (Auto) 0.1 K/mm3 (0.0-0.1); Basophils % (Auto) 0.8 % (0.0-1.8); Eosinophils # (Auto) 0.2 K/mm3 (0.0-0.4); Eosinophils % (Auto) 1.4 % (0.0-4.3); Hemoglobin 11.5 gm/dl (11.8-15.2); Lymphocytes # (Auto) 2.5 K/mm3 (1.2-5.4); Lymphocytes % (Auto) 19.3 % (13.4-35.0); Mean Corpuscular HGB Conc 33 % (32-34); Mean Corpuscular Hemoglobin 33 pg (28-32); Mean Corpuscular Volume 99 fl (84-94); Monocytes # (Auto) 1.1 K/mm3 (0.0-0.8); Monocytes % (Auto) 8.3 % (0.0-7.3); Platelet Count 361 K/mm3 (140-440); Red Blood Count 3.52 M/mm3 (3.65-5.03); Red Cell Distribution Width 14.2 % (13.2-15.2)
[2018-01-17 08:04] LABS: BUN/Creatinine Ratio 40; Blood Urea Nitrogen 16 mg/dL (9-20); Calcium 10.1 mg/dL (8.4-10.2); Hemolysis Index 4
[2018-01-17] MEDS: LIBRIUM PO SCH ×2 (10:00→18:59)
[2018-01-17] MEDS: FOLVITE FEEDTUBE SCH (11:00)
[2018-01-17] MEDS: LOPRESSOR PO SCH ×2 (11:00→23:30)
[2018-01-17] MEDS: VITAMIN B-1 PO SCH (11:00)
[2018-01-17] MEDS: SODIUM CHLORIDE FLUSH SYRINGE 10 ML IV SCH ×2 (11:00→23:32)
[2018-01-17] MEDS: PEPCID PO SCH ×2 (11:00→23:30)
[2018-01-17] MEDS: POTASSIUM CHLORIDE PO SCH (11:00)
[2018-01-17] MEDS: LANTUS SUB-Q SCH (12:00)
--- NOTE | 2018-01-17 13:12 | Progress Note ---
Assessment and Plan Imp: 1. Haemophilus influenza pneumonia and bacteremia 2. Severe sepsis 3. ARDS 4. Acute respiratory failure, hypoxia 5. Hypernatremia Rec: 1. DVT and GI PPx, TFs 2. Finished ABX 3. HOB elevated/aspiration precautions; NPO until cleared by ST (asked to not give him any more water until cleared by ST, she understands) 4. PO/OT -> await eval. 5. Stable pulm-reeves Plan of care reviewed w/ patient/, they understand/agree Subjective Date of service: 01/17/18 Principal diagnosis: ARDS,Respiratory failure,pneumonia Interval history: No events. Cough better. SOB stable. No new complaints. Active Medications Acetaminophen (Tylenol) 650 mg PO Q6H PRN PRN Reason: Pain, Mild (1-3),temp 100.5or> Last Admin: 01/16/18 13:57 Dose: 650 mg Acetaminophen (Tylenol) 650 mg MI Q4H PRN PRN Reason: Pain, Mild (1-3) Albuterol (Proventil) 2.5 mg IH Q4HRT PRN PRN Reason: Shortness Of Breath Last Admin: 12/13/17 03:01 Dose: 2.5 mg Albuterol/Ipratropium (Duoneb *Not For Prn Use*) 1 ampul IH TIDRT [facility] Last Admin: 01/17/18 13:02 Dose: 1 ampul Lipase/Protease/Amylase (Pancreaze Dr 10,500 Unit) 1 each FEEDTUBE PRN PRN PRN Reason: For Clogged Feeding Tube Chlordiazepoxide HCl (Librium) 50 mg PO Q8H [facility] Last Admin: 01/16/18 23:42 Dose: 50 mg Dextrose (D50w (25gm) Syringe) 50 ml IV PRN PRN PRN Reason: Hypoglycemia Enoxaparin Sodium (Lovenox) 40 mg SUB-Q QDAY@2200 [facility] Last Admin: 01/16/18 22:42 Dose: 40 mg Famotidine (Pepcid) 20 mg PO BID [facility] Last Admin: 01/16/18 22:42 Dose: 20 mg Folic Acid (Folvite) 1 mg FEEDTUBE QDAY [facility] Last Admin: 01/16/18 10:35 Dose: 1 mg Hydralazine HCl (Apresoline) 10 mg IV Q4HR PRN PRN Reason: SBP>170 Last Admin: 12/27/17 10:10 Dose: 10 mg Hydrophilic Ointment (Vaseline Lip Therapy) 1 applic TP DIRECT PRN PRN Reason: DRY LIPS Last Admin: 12/31/17 02:08 Dose: 1 applic Insulin Glargine (Lantus) 26 units SUB-Q DAILY [facility] Last Admin: 01/16/18 11:55 Dose: 26 units Insulin Human Lispro (Humalog) 0 unit SUB-Q Q4H [facility]; Protocol Last Admin: 01/17/18 03:11 Dose: Not Given Labetalol HCl (Normodyne) 20 mg IV Q6H PRN PRN Reason: Blood Pressure Metoprolol Tartrate (Lopressor) 50 mg PO BID [facility] Last Admin: 01/16/18 22:42 Dose: 50 mg Multi-Ingred Cream/Lotion/Oil/Oint (Artificial Tears Ophth Oint) 1 applic OU Q4HR PRN PRN Reason: Dry Eye(s) Ondansetron HCl (Zofran) 4 mg IV Q8H PRN PRN Reason: Nausea And Vomiting Last Admin: 01/01/18 04:20 Dose: 4 mg Potassium Chloride (Potassium Chloride) 20 meq PO QDAY [facility] Last Admin: 01/16/18 10:36 Dose: 20 meq Senna/Docusate Sodium (Senokot S) 2 tab PO BID PRN PRN Reason: Laxative Effect Simple Syrup (Simple Syrup) 15 ml FEEDTUBE PRN PRN PRN Reason: Hypoglycemia Last Admin: 12/31/17 02:07 Dose: 15 ml Simple Syrup (Simple Syrup) 30 ml FEEDTUBE PRN PRN PRN Reason: Hypoglycemia Sodium Bicarbonate (Sodium Bicarbonate) 325 mg FEEDTUBE PRN PRN PRN Reason: For Clogged Feeding Tube Sodium Chloride (Sodium Chloride Flush Syringe 10 Ml) 10 ml IV BID [facility] Last Admin: 01/16/18 22:58 Dose: 10 ml Sodium Chloride (Sodium Chloride Flush Syringe 10 Ml) 10 ml IV PRN PRN PRN Reason: LINE FLUSH Last Admin: 01/14/18 04:20 Dose: 10 ml Thiamine HCl (Vitamin B-1) 100 mg PO QDAY [facility] Last Admin: 01/16/18 10:36 Dose: 100 mg Objective Vital Signs - 12hr 01/17/18 01/17/18 07:20 12:07 Temperature 97.8 F 98.8 F Pulse Rate 98 H Pulse Rate [ 100 H Radial] Respiratory 20 20 Rate Blood Pressure 120/85 Blood Pressure 107/73 [Left] O2 Sat by Pulse 96 Oximetry Constitutional: no acute distress, alert Eyes: non-icteric ENT: oropharynx moist Neck: supple Effort: normal (unlabored) Ascultation: Bilateral: other (upper airway rhonchi, no stridor) Percussion: Bilateral: not dull Tactile fremitus: Bilateral: normal Cardiovascular: regular rate and rhythm (no mrg) Gastrointestinal: normoactive bowel sounds, soft, non-tender, non-distended Integumentary: normal Extremities: no cyanosis, no edema, pink and warm, no ischemia or petechiae Neurologic: normal mental status, non-focal exam, pupils equal and round, CN II- XII normal Psychiatric: mood appropriate, affect normal CBC and BMP: 01/17/18 07:00 01/17/18 07:00 ABG, PT/INR, D-dimer: ABG POC ABG pH 7.503 (7.35-7.45) H 12/25/17 03:38 ABG pH 7.441 pH Units (7.350-7.450) 01/06/18 03:14 POC ABG pCO2 35.8 (35-45) 12/25/17 03:38 ABG pCO2 43.2 mm Hg 01/06/18 03:14 POC ABG pO2 66 (80-105) L 12/25/17 03:38 ABG pO2 84.9 mm Hg (80.0-90.0) 01/06/18 03:14 POC ABG HCO3 28.1 12/25/17 03:38 POC ABG Total CO2 29 12/25/17 03:38 POC ABG O2 Sat 95 12/25/17 03:38 ABG O2 Saturation 97.0 % (95.0-99.0) 01/06/18 03:14 PT/INR, D-dimer PT 14.9 Sec. (12.2-14.9) 12/15/17 04:05 INR 1.11 (0.87-1.13) 12/15/17 04:05 Abnormal lab findings: Abnormal Labs 12/12/17 12/12/17 12/12/17 18:57 19:02 19:02 WBC RBC Hgb Hct MCV 96 H MCH 34 H MCHC 35 H RDW Plt Count 46 L Lymph % (Auto) [place] % (Auto) Eos % (Auto) [place] # Eos # Baso # Seg Neutrophils % Seg Neuts % (Manual) 77.0 H Lymphocytes % (Manual) 13.0 L Monocytes % (Manual) Eosinophils % (Manual) Nucleated RBC % Seg Neutrophils # Seg Neutrophils # Man Lymphocytes # (Manual) 0.9 L Monocytes # (Manual) Eosinophils # (Manual) APTT POC ABG pH ABG pH POC ABG pCO2 POC ABG pO2 ABG pO2 ABG HCO3 ABG O2 Saturation ABG Base Excess ABG Hemoglobin VBG pH Oxyhemoglobin Sodium Potassium Chloride Carbon Dioxide BUN Creatinine Glucose POC Glucose 321 H Lactic Acid 4.00 H* Calcium Phosphorus Total Bilirubin AST ALT C-Reactive Protein Total Protein Albumin Triglycerides Amylase Lipase Urine WBC (Auto) Vancomycin Trough Crossmatch 12/12/17 12/12/17 12/12/17 19:02 19:18 20:55 WBC RBC Hgb Hct MCV MCH MCHC RDW Plt Count Lymph % (Auto) [place] % (Auto) Eos % (Auto) [place] # Eos # Baso # Seg Neutrophils % Seg Neuts % (Manual) Lymphocytes % (Manual) Monocytes % (Manual) Eosinophils % (Manual) Nucleated RBC % Seg Neutrophils # Seg Neutrophils # Man Lymphocytes # (Manual) Monocytes # (Manual) Eosinophils # (Manual) APTT POC ABG pH ABG pH POC ABG pCO2 POC ABG pO2 ABG pO2 ABG HCO3 ABG O2 Saturation ABG Base Excess ABG Hemoglobin VBG pH 7.472 H Oxyhemoglobin Sodium 124 L Potassium Chloride 80.0 L Carbon Dioxide 20 L BUN Creatinine Glucose 382 H POC Glucose 283 H Lactic Acid Calcium 8.1 L Phosphorus Total Bilirubin 4.60 H AST 93 H ALT 112 H C-Reactive Protein Total Protein Albumin 2.5 L Triglycerides Amylase Lipase Urine WBC (Auto) Vancomycin Trough Crossmatch 12/12/17 12/13/17 12/13/17 21:41 00:45 01:29 WBC RBC Hgb Hct MCV MCH MCHC RDW Plt Count Lymph % (Auto) [place] % (Auto) Eos % (Auto) [place] # Eos # Baso # Seg Neutrophils % Seg Neuts % (Manual) Lymphocytes % (Manual) Monocytes % (Manual) Eosinophils % (Manual) Nucleated RBC % Seg Neutrophils # Seg Neutrophils # Man Lymphocytes # (Manual) Monocytes # (Manual) Eosinophils # (Manual) APTT POC ABG pH ABG pH POC ABG pCO2 POC ABG pO2 ABG pO2 ABG HCO3 ABG O2 Saturation ABG Base Excess ABG Hemoglobin VBG pH Oxyhemoglobin Sodium Potassium Chloride Carbon Dioxide BUN Creatinine Glucose POC Glucose Lactic Acid 4.20 H* 2.70 H* 3.30 H* Calcium Phosphorus Total Bilirubin AST ALT C-Reactive Protein Total Protein Albumin Triglycerides Amylase Lipase Urine WBC (Auto) Vancomycin Trough Crossmatch 12/13/17 12/13/17 12/13/17 02:19 03:44 05:58 WBC RBC Hgb Hct MCV 97 H MCH 34 H MCHC 35 H RDW Plt Count 41 L Lymph % (Auto) [place] % (Auto) Eos % (Auto) [place] # Eos # Baso # Seg Neutrophils % Seg Neuts % (Manual) Lymphocytes % (Manual) 8.0 L Monocytes % (Manual) 8.0 H Eosinophils % (Manual) Nucleated RBC % Seg Neutrophils # Seg Neutrophils # Man Lymphocytes # (Manual) 0.6 L Monocytes # (Manual) Eosinophils # (Manual) APTT POC ABG pH 7.334 L ABG pH POC ABG pCO2 POC ABG pO2 43 L ABG pO2 ABG HCO3 ABG O2 Saturation ABG Base Excess ABG Hemoglobin VBG pH Oxyhemoglobin Sodium Potassium Chloride Carbon Dioxide BUN Creatinine Glucose POC Glucose Lactic Acid 2.60 H* Calcium Phosphorus Total Bilirubin AST ALT C-Reactive Protein Total Protein Albumin Triglycerides Amylase Lipase Urine WBC (Auto) Vancomycin Trough Crossmatch 12/13/17 12/13/17 12/13/17 05:58 05:58 05:58 WBC RBC Hgb Hct MCV MCH MCHC RDW Plt Count Lymph % (Auto) [place] % (Auto) Eos % (Auto) [place] # Eos # Baso # Seg Neutrophils % Seg Neuts % (Manual) Lymphocytes % (Manual) Monocytes % (Manual) Eosinophils % (Manual) Nucleated RBC % Seg Neutrophils # Seg Neutrophils # Man Lymphocytes # (Manual) Monocytes # (Manual) Eosinophils # (Manual) APTT POC ABG pH ABG pH POC ABG pCO2 POC ABG pO2 ABG pO2 ABG HCO3 ABG O2 Saturation ABG Base Excess ABG Hemoglobin VBG pH Oxyhemoglobin Sodium 132 L D Potassium Chloride 90.0 L Carbon Dioxide 20 L BUN Creatinine Glucose 346 H POC Glucose 298 H Lactic Acid 4.50 H* Calcium 8.2 L Phosphorus Total Bilirubin AST ALT C-Reactive Protein Total Protein Albumin Triglycerides Amylase Lipase Urine WBC (Auto) Vancomycin Trough Crossmatch 12/13/17 12/13/17 12/13/17 06:27 09:42 11:47 WBC RBC Hgb Hct MCV MCH MCHC RDW Plt Count Lymph % (Auto) [place] % (Auto) Eos % (Auto) [place] # Eos # Baso # Seg Neutrophils % Seg Neuts % (Manual) Lymphocytes % (Manual) Monocytes % (Manual) Eosinophils % (Manual) Nucleated RBC % Seg Neutrophils # Seg Neutrophils # Man Lymphocytes # (Manual) Monocytes # (Manual) Eosinophils # (Manual) APTT POC ABG pH 7.267 L 7.298 L ABG pH POC ABG pCO2 50.4 H 51.3 H POC ABG pO2 47 L 43 L ABG pO2 ABG HCO3 ABG O2 Saturation ABG Base Excess ABG Hemoglobin VBG pH Oxyhemoglobin Sodium Potassium Chloride Carbon Dioxide BUN Creatinine Glucose POC Glucose 376 H Lactic Acid Calcium Phosphorus Total Bilirubin AST ALT C-Reactive Protein Total Protein Albumin Triglycerides Amylase Lipase Urine WBC (Auto) Vancomycin Trough Crossmatch 12/13/17 12/13/17 12/13/17 12:03 13:47 13:47 WBC RBC Hgb Hct MCV MCH MCHC RDW Plt Count Lymph % (Auto) [place] % (Auto) Eos % (Auto) [place] # Eos # Baso # Seg Neutrophils % Seg Neuts % (Manual) Lymphocytes % (Manual) Monocytes % (Manual) Eosinophils % (Manual) Nucleated RBC % Seg Neutrophils # Seg Neutrophils # Man Lymphocytes # (Manual) Monocytes # (Manual) Eosinophils # (Manual) APTT POC ABG pH 7.264 L ABG pH POC ABG pCO2 54.9 H POC ABG pO2 55 L ABG pO2 ABG HCO3 ABG O2 Saturation ABG Base Excess ABG Hemoglobin VBG pH Oxyhemoglobin Sodium Potassium Chloride Carbon Dioxide BUN Creatinine Glucose POC Glucose Lactic Acid 2.80 H* Calcium Phosphorus Total Bilirubin AST ALT C-Reactive Protein Total Protein Albumin Triglycerides Amylase 20 L Lipase 9 L Urine WBC (Auto) Vancomycin Trough Crossmatch 12/13/17 12/13/17 12/13/17 15:36 17:39 21:47 WBC RBC Hgb Hct MCV MCH MCHC RDW Plt Count Lymph % (Auto) [place] % (Auto) Eos % (Auto) [place] # Eos # Baso # Seg Neutrophils % Seg Neuts % (Manual) Lymphocytes % (Manual) Monocytes % (Manual) Eosinophils % (Manual) Nucleated RBC % Seg Neutrophils # Seg Neutrophils # Man Lymphocytes # (Manual) Monocytes # (Manual) Eosinophils # (Manual) APTT POC ABG pH 7.229 L 7.225 L ABG pH POC ABG pCO2 60.9 H 66.3 H POC ABG pO2 42 L 41 L ABG pO2 ABG HCO3 ABG O2 Saturation ABG Base Excess ABG Hemoglobin VBG pH Oxyhemoglobin Sodium Potassium Chloride Carbon Dioxide BUN Creatinine Glucose POC Glucose 289 H Lactic Acid Calcium Phosphorus Total Bilirubin AST ALT C-Reactive Protein Total Protein Albumin Triglycerides Amylase Lipase Urine WBC (Auto) Vancomycin Trough Crossmatch 12/13/17 12/14/17 12/14/17 22:19 02:03 05:16 WBC RBC Hgb Hct MCV MCH MCHC RDW Plt Count Lymph % (Auto) [place] % (Auto) Eos % (Auto) [place] # Eos # Baso # Seg Neutrophils % Seg Neuts % (Manual) Lymphocytes % (Manual) Monocytes % (Manual) Eosinophils % (Manual) Nucleated RBC % Seg Neutrophils # Seg Neutrophils # Man Lymphocytes # (Manual) Monocytes # (Manual) Eosinophils # (Manual) APTT POC ABG pH 7.247 L ABG pH POC ABG pCO2 61.2 H POC ABG pO2 53 L ABG pO2 ABG HCO3 ABG O2 Saturation ABG Base Excess ABG Hemoglobin VBG pH Oxyhemoglobin Sodium Potassium Chloride Carbon Dioxide BUN Creatinine Glucose POC Glucose 274 H 295 H Lactic Acid Calcium Phosphorus Total Bilirubin AST ALT C-Reactive Protein Total Protein Albumin Triglycerides Amylase Lipase Urine WBC (Auto) Vancomycin Trough Crossmatch 12/14/17 12/14/17 12/14/17 05:32 12:04 16:22 WBC RBC Hgb Hct MCV MCH MCHC RDW Plt Count Lymph % (Auto) [place] % (Auto) Eos % (Auto) [place] # Eos # Baso # Seg Neutrophils % Seg Neuts % (Manual) Lymphocytes % (Manual) Monocytes % (Manual) Eosinophils % (Manual) Nucleated RBC % Seg Neutrophils # Seg Neutrophils # Man Lymphocytes # (Manual) Monocytes # (Manual) Eosinophils # (Manual) APTT POC ABG pH ABG pH POC ABG pCO2 POC ABG pO2 ABG pO2 ABG HCO3 ABG O2 Saturation ABG Base Excess ABG Hemoglobin VBG pH Oxyhemoglobin Sodium Potassium Chloride Carbon Dioxide BUN Creatinine Glucose POC Glucose 230 H 241 H 231 H Lactic Acid Calcium Phosphorus Total Bilirubin AST ALT C-Reactive Protein Total Protein Albumin Triglycerides Amylase Lipase Urine WBC (Auto) Vancomycin Trough Crossmatch 12/14/17 12/15/17 12/15/17 21:29 02:29 03:25 WBC RBC Hgb Hct MCV MCH MCHC RDW Plt Count Lymph % (Auto) [place] % (Auto) Eos % (Auto) [place] # Eos # Baso # Seg Neutrophils % Seg Neuts % (Manual) Lymphocytes % (Manual) Monocytes % (Manual) Eosinophils % (Manual) Nucleated RBC % Seg Neutrophils # Seg Neutrophils # Man Lymphocytes # (Manual) Monocytes # (Manual) Eosinophils # (Manual) APTT POC ABG pH 7.330 L ABG pH POC ABG pCO2 55.3 H POC ABG pO2 59 L ABG pO2 ABG HCO3 ABG O2 Saturation ABG Base Excess ABG Hemoglobin VBG pH Oxyhemoglobin Sodium Potassium Chloride Carbon Dioxide BUN Creatinine Glucose POC Glucose 258 H 246 H Lactic Acid Calcium Phosphorus Total Bilirubin AST ALT C-Reactive Protein Total Protein Albumin Triglycerides Amylase Lipase Urine WBC (Auto) Vancomycin Trough Crossmatch 12/15/17 12/15/17 12/15/17 04:05 04:05 04:05 WBC 15.0 H RBC 3.40 L Hgb 11.3 L D Hct 33.8 L D MCV 100 H MCH 33 H MCHC RDW Plt Count 48 L Lymph % (Auto) [place] % (Auto) Eos % (Auto) [place] # Eos # Baso # Seg Neutrophils % Seg Neuts % (Manual) Lymphocytes % (Manual) 3.0 L Monocytes % (Manual) Eosinophils % (Manual) Nucleated RBC % 2.0 H Seg Neutrophils # Seg Neutrophils # Man Lymphocytes # (Manual) 0.5 L Monocytes # (Manual) 0.9 H Eosinophils # (Manual) APTT 20.9 L POC ABG pH ABG pH POC ABG pCO2 POC ABG pO2 ABG pO2 ABG HCO3 ABG O2 Saturation ABG Base Excess ABG Hemoglobin VBG pH Oxyhemoglobin Sodium Potassium Chloride Carbon Dioxide BUN 27 H Creatinine Glucose 258 H POC Glucose Lactic Acid Calcium 8.1 L Phosphorus Total Bilirubin AST ALT C-Reactive Protein Total Protein Albumin Triglycerides Amylase Lipase Urine WBC (Auto) Vancomycin Trough Crossmatch 12/15/17 12/15/17 12/15/17 05:32 11:17 14:59 WBC RBC Hgb Hct MCV MCH MCHC RDW Plt Count Lymph % (Auto) [place] % (Auto) Eos % (Auto) [place] # Eos # Baso # Seg Neutrophils % Seg Neuts % (Manual) Lymphocytes % (Manual) Monocytes % (Manual) Eosinophils % (Manual) Nucleated RBC % Seg Neutrophils # Seg Neutrophils # Man Lymphocytes # (Manual) Monocytes # (Manual) Eosinophils # (Manual) APTT POC ABG pH ABG pH POC ABG pCO2 POC ABG pO2 ABG pO2 ABG HCO3 ABG O2 Saturation ABG Base Excess ABG Hemoglobin VBG pH Oxyhemoglobin Sodium Potassium Chloride Carbon Dioxide BUN Creatinine Glucose POC Glucose 247 H 268 H 233 H Lactic Acid Calcium Phosphorus Total Bilirubin AST ALT C-Reactive Protein Total Protein Albumin Triglycerides Amylase Lipase Urine WBC (Auto) Vancomycin Trough Crossmatch 12/15/17 12/15/17 12/15/17 17:00 18:59 21:37 WBC RBC Hgb Hct MCV MCH MCHC RDW Plt Count Lymph % (Auto) [place] % (Auto) Eos % (Auto) [place] # Eos # Baso # Seg Neutrophils % Seg Neuts % (Manual) Lymphocytes % (Manual) Monocytes % (Manual) Eosinophils % (Manual) Nucleated RBC % Seg Neutrophils # Seg Neutrophils # Man Lymphocytes # (Manual) Monocytes # (Manual) Eosinophils # (Manual) APTT POC ABG pH ABG pH POC ABG pCO2 POC ABG pO2 ABG pO2 ABG HCO3 ABG O2 Saturation ABG Base Excess ABG Hemoglobin VBG pH Oxyhemoglobin Sodium Potassium Chloride Carbon Dioxide BUN Creatinine Glucose POC Glucose 195 H 208 H Lactic Acid Calcium Phosphorus Total Bilirubin AST ALT C-Reactive Protein Total Protein Albumin Triglycerides Amylase Lipase Urine WBC (Auto) 38.0 H Vancomycin Trough Crossmatch 12/16/17 12/16/17 12/16/17 03:17 03:33 04:18 WBC 16.4 H RBC 3.50 L Hgb 11.3 L Hct 35.4 L MCV 101 H MCH MCHC RDW Plt Count 54 L Lymph % (Auto) [place] % (Auto) Eos % (Auto) [place] # Eos # Baso # Seg Neutrophils % Seg Neuts % (Manual) Lymphocytes % (Manual) Monocytes % (Manual) Eosinophils % (Manual) Nucleated RBC % Seg Neutrophils # Seg Neutrophils # Man Lymphocytes # (Manual) Monocytes # (Manual) Eosinophils # (Manual) APTT POC ABG pH ABG pH POC ABG pCO2 47.7 H POC ABG pO2 ABG pO2 ABG HCO3 ABG O2 Saturation ABG Base Excess ABG Hemoglobin VBG pH Oxyhemoglobin Sodium Potassium Chloride Carbon Dioxide BUN Creatinine Glucose POC Glucose 227 H Lactic Acid Calcium Phosphorus Total Bilirubin AST ALT C-Reactive Protein Total Protein Albumin Triglycerides Amylase Lipase Urine WBC (Auto) Vancomycin Trough Crossmatch 12/16/17 12/16/17 12/16/17 04:18 05:08 10:01 WBC RBC Hgb Hct MCV MCH MCHC RDW Plt Count Lymph % (Auto) [place] % (Auto) Eos % (Auto) [place] # Eos # Baso # Seg Neutrophils % Seg Neuts % (Manual) Lymphocytes % (Manual) Monocytes % (Manual) Eosinophils % (Manual) Nucleated RBC % Seg Neutrophils # Seg Neutrophils # Man Lymphocytes # (Manual) Monocytes # (Manual) Eosinophils # (Manual) APTT POC ABG pH ABG pH POC ABG pCO2 POC ABG pO2 ABG pO2 ABG HCO3 ABG O2 Saturation ABG Base Excess ABG Hemoglobin VBG pH Oxyhemoglobin Sodium 147 H Potassium Chloride 107.4 H Carbon Dioxide BUN 28 H Creatinine Glucose 240 H POC Glucose 227 H 190 H Lactic Acid Calcium 8.3 L Phosphorus Total Bilirubin AST ALT C-Reactive Protein Total Protein Albumin Triglycerides Amylase Lipase Urine WBC (Auto) Vancomycin Trough Crossmatch 12/16/17 12/16/17 12/16/17 14:15 17:51 21:14 WBC RBC Hgb Hct MCV MCH MCHC RDW Plt Count Lymph % (Auto) [place] % (Auto) Eos % (Auto) [place] # Eos # Baso # Seg Neutrophils % Seg Neuts % (Manual) Lymphocytes % (Manual) Monocytes % (Manual) Eosinophils % (Manual) Nucleated RBC % Seg Neutrophils # Seg Neutrophils # Man Lymphocytes # (Manual) Monocytes # (Manual) Eosinophils # (Manual) APTT POC ABG pH ABG pH POC ABG pCO2 POC ABG pO2 ABG pO2 ABG HCO3 ABG O2 Saturation ABG Base Excess ABG Hemoglobin VBG pH Oxyhemoglobin Sodium Potassium Chloride Carbon Dioxide BUN Creatinine Glucose POC Glucose 279 H 272 H 260 H Lactic Acid Calcium Phosphorus Total Bilirubin AST ALT C-Reactive Protein Total Protein Albumin Triglycerides Amylase Lipase Urine WBC (Auto) Vancomycin Trough Crossmatch 12/17/17 12/17/17 12/17/17 02:41 04:28 04:28 WBC 19.1 H RBC 3.50 L Hgb 11.4 L Hct 35.3 L MCV 101 H MCH 33 H MCHC RDW Plt Count 65 L Lymph % (Auto) [place] % (Auto) Eos % (Auto) [place] # Eos # Baso # Seg Neutrophils % Seg Neuts % (Manual) Lymphocytes % (Manual) Monocytes % (Manual) Eosinophils % (Manual) Nucleated RBC % Seg Neutrophils # Seg Neutrophils # Man Lymphocytes # (Manual) Monocytes # (Manual) Eosinophils # (Manual) APTT POC ABG pH ABG pH POC ABG pCO2 POC ABG pO2 ABG pO2 ABG HCO3 ABG O2 Saturation ABG Base Excess ABG Hemoglobin VBG pH Oxyhemoglobin Sodium 153 H Potassium Chloride 111.2 H Carbon Dioxide 31 H BUN 28 H Creatinine Glucose 248 H POC Glucose 300 H Lactic Acid Calcium Phosphorus Total Bilirubin AST ALT C-Reactive Protein Total Protein Albumin Triglycerides Amylase Lipase Urine WBC (Auto) Vancomycin Trough Crossmatch 12/17/17 12/17/17 12/17/17 05:15 05:38 10:16 WBC RBC Hgb Hct MCV MCH MCHC RDW Plt Count Lymph % (Auto) [place] % (Auto) Eos % (Auto) [place] # Eos # Baso # Seg Neutrophils % Seg Neuts % (Manual) Lymphocytes % (Manual) Monocytes % (Manual) Eosinophils % (Manual) Nucleated RBC % Seg Neutrophils # Seg Neutrophils # Man Lymphocytes # (Manual) Monocytes # (Manual) Eosinophils # (Manual) APTT POC ABG pH ABG pH POC ABG pCO2 50.3 H POC ABG pO2 120 H ABG pO2 ABG HCO3 ABG O2 Saturation ABG Base Excess ABG Hemoglobin VBG pH Oxyhemoglobin Sodium Potassium Chloride Carbon Dioxide BUN Creatinine Glucose POC Glucose 231 H 196 H Lactic Acid Calcium Phosphorus Total Bilirubin AST ALT C-Reactive Protein Total Protein Albumin Triglycerides Amylase Lipase Urine WBC (Auto) Vancomycin Trough Crossmatch 12/17/17 12/17/17 12/17/17 14:22 18:14 21:35 WBC RBC Hgb Hct MCV MCH MCHC RDW Plt Count Lymph % (Auto) [place] % (Auto) Eos % (Auto) [place] # Eos # Baso # Seg Neutrophils % Seg Neuts % (Manual) Lymphocytes % (Manual) Monocytes % (Manual) Eosinophils % (Manual) Nucleated RBC % Seg Neutrophils # Seg Neutrophils # Man Lymphocytes # (Manual) Monocytes # (Manual) Eosinophils # (Manual) APTT POC ABG pH ABG pH POC ABG pCO2 POC ABG pO2 ABG pO2 ABG HCO3 ABG O2 Saturation ABG Base Excess ABG Hemoglobin VBG pH Oxyhemoglobin Sodium Potassium Chloride Carbon Dioxide BUN Creatinine Glucose POC Glucose 234 H 215 H 159 H Lactic Acid Calcium Phosphorus Total Bilirubin AST ALT C-Reactive Protein Total Protein Albumin Triglycerides Amylase Lipase Urine WBC (Auto) Vancomycin Trough Crossmatch 12/18/17 12/18/17 12/18/17 00:53 02:58 06:03 WBC RBC Hgb Hct MCV MCH MCHC RDW Plt Count Lymph % (Auto) [place] % (Auto) Eos % (Auto) [place] # Eos # Baso # Seg Neutrophils % Seg Neuts % (Manual) Lymphocytes % (Manual) Monocytes % (Manual) Eosinophils % (Manual) Nucleated RBC % Seg Neutrophils # Seg Neutrophils # Man Lymphocytes # (Manual) Monocytes # (Manual) Eosinophils # (Manual) APTT POC ABG pH ABG pH POC ABG pCO2 56.4 H POC ABG pO2 46 L ABG pO2 ABG HCO3 ABG O2 Saturation ABG Base Excess ABG Hemoglobin VBG pH Oxyhemoglobin Sodium Potassium Chloride Carbon Dioxide BUN Creatinine Glucose POC Glucose 176 H 143 H Lactic Acid Calcium Phosphorus Total Bilirubin AST ALT C-Reactive Protein Total Protein Albumin Triglycerides Amylase Lipase Urine WBC (Auto) Vancomycin Trough Crossmatch 12/18/17 12/18/17 12/18/17 07:59 09:20 09:20 WBC 27.4 H RBC 3.57 L Hgb 11.4 L Hct MCV 101 H MCH MCHC RDW Plt Count 64 L Lymph % (Auto) [place] % (Auto) Eos % (Auto) [place] # Eos # Baso # Seg Neutrophils % Seg Neuts % (Manual) Lymphocytes % (Manual) Monocytes % (Manual) Eosinophils % (Manual) Nucleated RBC % Seg Neutrophils # Seg Neutrophils # Man Lymphocytes # (Manual) Monocytes # (Manual) Eosinophils # (Manual) APTT POC ABG pH ABG pH POC ABG pCO2 POC ABG pO2 ABG pO2 ABG HCO3 ABG O2 Saturation ABG Base Excess ABG Hemoglobin VBG pH Oxyhemoglobin Sodium 152 H Potassium Chloride 107.9 H Carbon Dioxide 34 H BUN 23 H Creatinine 0.7 L Glucose 181 H POC Glucose 197 H Lactic Acid Calcium Phosphorus Total Bilirubin AST ALT C-Reactive Protein Total Protein Albumin Triglycerides Amylase Lipase Urine WBC (Auto) Vancomycin Trough Crossmatch 12/18/17 12/18/17 12/18/17 10:22 15:03 18:15 WBC RBC Hgb Hct MCV MCH MCHC RDW Plt Count Lymph % (Auto) [place] % (Auto) Eos % (Auto) [place] # Eos # Baso # Seg Neutrophils % Seg Neuts % (Manual) Lymphocytes % (Manual) Monocytes % (Manual) Eosinophils % (Manual) Nucleated RBC % Seg Neutrophils # Seg Neutrophils # Man Lymphocytes # (Manual) Monocytes # (Manual) Eosinophils # (Manual) APTT POC ABG pH ABG pH POC ABG pCO2 POC ABG pO2 ABG pO2 ABG HCO3 ABG O2 Saturation ABG Base Excess ABG Hemoglobin VBG pH Oxyhemoglobin Sodium Potassium Chloride Carbon Dioxide BUN Creatinine Glucose POC Glucose 195 H 225 H 238 H Lactic Acid Calcium Phosphorus Total Bilirubin AST ALT C-Reactive Protein Total Protein Albumin Triglycerides Amylase Lipase Urine WBC (Auto) Vancomycin Trough Crossmatch 12/18/17 12/18/17 12/19/17 18:29 21:53 00:18 WBC RBC Hgb Hct MCV MCH MCHC RDW Plt Count Lymph % (Auto) [place] % (Auto) Eos % (Auto) [place] # Eos # Baso # Seg Neutrophils % Seg Neuts % (Manual) Lymphocytes % (Manual) Monocytes % (Manual) Eosinophils % (Manual) Nucleated RBC % Seg Neutrophils # Seg Neutrophils # Man Lymphocytes # (Manual) Monocytes # (Manual) Eosinophils # (Manual) APTT POC ABG pH 7.476 H ABG pH POC ABG pCO2 50.4 H POC ABG pO2 158 H ABG pO2 ABG HCO3 ABG O2 Saturation ABG Base Excess ABG Hemoglobin VBG pH Oxyhemoglobin Sodium Potassium Chloride Carbon Dioxide BUN Creatinine Glucose POC Glucose 231 H 263 H Lactic Acid Calcium Phosphorus Total Bilirubin AST ALT C-Reactive Protein Total Protein Albumin Triglycerides Amylase Lipase Urine WBC (Auto) Vancomycin Trough Crossmatch 12/19/17 12/19/17 12/19/17 02:09 04:07 04:07 WBC 25.9 H RBC 3.25 L Hgb 10.6 L Hct 32.8 L MCV 101 H MCH 33 H MCHC RDW Plt Count 67 L Lymph % (Auto) [place] % (Auto) Eos % (Auto) [place] # Eos # Baso # Seg Neutrophils % Seg Neuts % (Manual) Lymphocytes % (Manual) 4.0 L Monocytes % (Manual) Eosinophils % (Manual) Nucleated RBC % Seg Neutrophils # Seg Neutrophils # Man 14.8 H Lymphocytes # (Manual) 1.0 L Monocytes # (Manual) Eosinophils # (Manual) APTT POC ABG pH ABG pH POC ABG pCO2 POC ABG pO2 ABG pO2 ABG HCO3 ABG O2 Saturation ABG Base Excess ABG Hemoglobin VBG pH Oxyhemoglobin Sodium 148 H Potassium Chloride Carbon Dioxide BUN 31 H Creatinine Glucose 314 H POC Glucose 300 H Lactic Acid Calcium 8.1 L Phosphorus Total Bilirubin AST ALT C-Reactive Protein Total Protein Albumin Triglycerides Amylase Lipase Urine WBC (Auto) Vancomycin Trough Crossmatch 12/19/17 12/19/17 12/19/17 05:15 05:41 07:57 WBC RBC Hgb Hct MCV MCH MCHC RDW Plt Count Lymph % (Auto) [place] % (Auto) Eos % (Auto) [place] # Eos # Baso # Seg Neutrophils % Seg Neuts % (Manual) Lymphocytes % (Manual) Monocytes % (Manual) Eosinophils % (Manual) Nucleated RBC % Seg Neutrophils # Seg Neutrophils # Man Lymphocytes # (Manual) Monocytes # (Manual) Eosinophils # (Manual) APTT POC ABG pH 7.507 H ABG pH POC ABG pCO2 POC ABG pO2 ABG pO2 ABG HCO3 ABG O2 Saturation ABG Base Excess ABG Hemoglobin VBG pH Oxyhemoglobin Sodium Potassium Chloride Carbon Dioxide BUN Creatinine Glucose POC Glucose 331 H 307 H Lactic Acid Calcium Phosphorus Total Bilirubin AST ALT C-Reactive Protein Total Protein Albumin Triglycerides Amylase Lipase Urine WBC (Auto) Vancomycin Trough Crossmatch 12/19/17 12/19/17 12/19/17 10:21 14:48 17:59 WBC RBC Hgb Hct MCV MCH MCHC RDW Plt Count Lymph % (Auto) [place] % (Auto) Eos % (Auto) [place] # Eos # Baso # Seg Neutrophils % Seg Neuts % (Manual) Lymphocytes % (Manual) Monocytes % (Manual) Eosinophils % (Manual) Nucleated RBC % Seg Neutrophils # Seg Neutrophils # Man Lymphocytes # (Manual) Monocytes # (Manual) Eosinophils # (Manual) APTT POC ABG pH ABG pH POC ABG pCO2 POC ABG pO2 ABG pO2 ABG HCO3 ABG O2 Saturation ABG Base Excess ABG Hemoglobin VBG pH Oxyhemoglobin Sodium Potassium Chloride Carbon Dioxide BUN Creatinine Glucose POC Glucose 358 H 327 H 355 H Lactic Acid Calcium Phosphorus Total Bilirubin AST ALT C-Reactive Protein Total Protein Albumin Triglycerides Amylase Lipase Urine WBC (Auto) Vancomycin Trough Crossmatch 12/19/17 12/20/17 12/20/17 21:38 02:21 03:42 WBC RBC Hgb Hct MCV MCH MCHC RDW Plt Count Lymph % (Auto) [place] % (Auto) Eos % (Auto) [place] # Eos # Baso # Seg Neutrophils % Seg Neuts % (Manual) Lymphocytes % (Manual) Monocytes % (Manual) Eosinophils % (Manual) Nucleated RBC % Seg Neutrophils # Seg Neutrophils # Man Lymphocytes # (Manual) Monocytes # (Manual) Eosinophils # (Manual) APTT POC ABG pH 7.494 H ABG pH POC ABG pCO2 POC ABG pO2 ABG pO2 ABG HCO3 ABG O2 Saturation ABG Base Excess ABG Hemoglobin VBG pH Oxyhemoglobin Sodium Potassium Chloride Carbon Dioxide BUN Creatinine Glucose POC Glucose 329 H 354 H Lactic Acid Calcium Phosphorus Total Bilirubin AST ALT C-Reactive Protein Total Protein Albumin Triglycerides Amylase Lipase Urine WBC (Auto) Vancomycin Trough Crossmatch 12/20/17 12/20/17 12/20/17 04:08 04:08 04:08 WBC 22.7 H RBC 3.26 L Hgb 10.6 L Hct 32.9 L MCV 101 H MCH 33 H MCHC RDW Plt Count 78 L Lymph % (Auto) [place] % (Auto) Eos % (Auto) [place] # Eos # Baso # Seg Neutrophils % Seg Neuts % (Manual) 80.0 H Lymphocytes % (Manual) 6.0 L Monocytes % (Manual) Eosinophils % (Manual) Nucleated RBC % Seg Neutrophils # Seg Neutrophils # Man 18.2 H Lymphocytes # (Manual) Monocytes # (Manual) Eosinophils # (Manual) APTT POC ABG pH ABG pH POC ABG pCO2 POC ABG pO2 ABG pO2 ABG HCO3 ABG O2 Saturation ABG Base Excess ABG Hemoglobin VBG pH Oxyhemoglobin Sodium Potassium Chloride Carbon Dioxide 31 H BUN 30 H Creatinine 0.6 L Glucose 365 H POC Glucose Lactic Acid Calcium Phosphorus Total Bilirubin AST ALT C-Reactive Protein Total Protein Albumin Triglycerides 981 H Amylase Lipase Urine WBC (Auto) Vancomycin Trough Crossmatch 12/20/17 12/20/17 12/20/17 05:15 10:47 13:40 WBC RBC Hgb Hct MCV MCH MCHC RDW Plt Count Lymph % (Auto) [place] % (Auto) Eos % (Auto) [place] # Eos # Baso # Seg Neutrophils % Seg Neuts % (Manual) Lymphocytes % (Manual) Monocytes % (Manual) Eosinophils % (Manual) Nucleated RBC % Seg Neutrophils # Seg Neutrophils # Man Lymphocytes # (Manual) Monocytes # (Manual) Eosinophils # (Manual) APTT POC ABG pH ABG pH POC ABG pCO2 POC ABG pO2 ABG pO2 ABG HCO3 ABG O2 Saturation ABG Base Excess ABG Hemoglobin VBG pH Oxyhemoglobin Sodium Potassium Chloride Carbon Dioxide BUN Creatinine Glucose POC Glucose 342 H 330 H Lactic Acid Calcium Phosphorus Total Bilirubin AST ALT C-Reactive Protein 7.10 H Total Protein Albumin Triglycerides Amylase Lipase Urine WBC (Auto) Vancomycin Trough Crossmatch 12/20/17 12/20/17 12/20/17 13:40 14:52 16:55 WBC RBC Hgb Hct MCV MCH MCHC RDW Plt Count Lymph % (Auto) [place] % (Auto) Eos % (Auto) [place] # Eos # Baso # Seg Neutrophils % Seg Neuts % (Manual) Lymphocytes % (Manual) Monocytes % (Manual) Eosinophils % (Manual) Nucleated RBC % Seg Neutrophils # Seg Neutrophils # Man Lymphocytes # (Manual) Monocytes # (Manual) Eosinophils # (Manual) APTT POC ABG pH 7.484 H ABG pH POC ABG pCO2 POC ABG pO2 ABG pO2 ABG HCO3 ABG O2 Saturation ABG Base Excess ABG Hemoglobin VBG pH Oxyhemoglobin Sodium Potassium Chloride Carbon Dioxide BUN Creatinine Glucose POC Glucose 293 H Lactic Acid Calcium Phosphorus Total Bilirubin AST ALT C-Reactive Protein Total Protein Albumin Triglycerides 1042 H Amylase Lipase Urine WBC (Auto) Vancomycin Trough Crossmatch 12/20/17 12/20/17 12/21/17 18:00 21:58 02:05 WBC RBC Hgb Hct MCV MCH MCHC RDW Plt Count Lymph % (Auto) [place] % (Auto) Eos % (Auto) [place] # Eos # Baso # Seg Neutrophils % Seg Neuts % (Manual) Lymphocytes % (Manual) Monocytes % (Manual) Eosinophils % (Manual) Nucleated RBC % Seg Neutrophils # Seg Neutrophils # Man Lymphocytes # (Manual) Monocytes # (Manual) Eosinophils # (Manual) APTT POC ABG pH ABG pH POC ABG pCO2 POC ABG pO2 ABG pO2 ABG HCO3 ABG O2 Saturation ABG Base Excess ABG Hemoglobin VBG pH Oxyhemoglobin Sodium Potassium Chloride Carbon Dioxide BUN Creatinine Glucose POC Glucose 268 H 272 H 229 H Lactic Acid Calcium Phosphorus Total Bilirubin AST ALT C-Reactive Protein Total Protein Albumin Triglycerides Amylase Lipase Urine WBC (Auto) Vancomycin Trough Crossmatch 12/21/17 12/21/17 12/21/17 03:59 06:23 08:57 WBC RBC Hgb Hct MCV MCH MCHC RDW Plt Count Lymph % (Auto) [place] % (Auto) Eos % (Auto) [place] # Eos # Baso # Seg Neutrophils % Seg Neuts % (Manual) Lymphocytes % (Manual) Monocytes % (Manual) Eosinophils % (Manual) Nucleated RBC % Seg Neutrophils # Seg Neutrophils # Man Lymphocytes # (Manual) Monocytes # (Manual) Eosinophils # (Manual) APTT POC ABG pH 7.474 H ABG pH POC ABG pCO2 POC ABG pO2 71 L ABG pO2 ABG HCO3 ABG O2 Saturation ABG Base Excess ABG Hemoglobin VBG pH Oxyhemoglobin Sodium Potassium Chloride Carbon Dioxide BUN Creatinine Glucose POC Glucose 182 H 217 H Lactic Acid Calcium Phosphorus Total Bilirubin AST ALT C-Reactive Protein Total Protein Albumin Triglycerides Amylase Lipase Urine WBC (Auto) Vancomycin Trough Crossmatch 12/21/17 12/21/17 12/21/17 13:59 18:00 21:20 WBC RBC Hgb Hct MCV MCH MCHC RDW Plt Count Lymph % (Auto) [place] % (Auto) Eos % (Auto) [place] # Eos # Baso # Seg Neutrophils % Seg Neuts % (Manual) Lymphocytes % (Manual) Monocytes % (Manual) Eosinophils % (Manual) Nucleated RBC % Seg Neutrophils # Seg Neutrophils # Man Lymphocytes # (Manual) Monocytes # (Manual) Eosinophils # (Manual) APTT POC ABG pH ABG pH POC ABG pCO2 POC ABG pO2 ABG pO2 ABG HCO3 ABG O2 Saturation ABG Base Excess ABG Hemoglobin VBG pH Oxyhemoglobin Sodium Potassium Chloride Carbon Dioxide BUN Creatinine Glucose POC Glucose 185 H 176 H 187 H Lactic Acid Calcium Phosphorus Total Bilirubin AST ALT C-Reactive Protein Total Protein Albumin Triglycerides Amylase Lipase Urine WBC (Auto) Vancomycin Trough Crossmatch 12/21/17 12/22/17 12/22/17 23:48 04:39 05:30 WBC RBC Hgb Hct MCV MCH MCHC RDW Plt Count Lymph % (Auto) [place] % (Auto) Eos % (Auto) [place] # Eos # Baso # Seg Neutrophils % Seg Neuts % (Manual) Lymphocytes % (Manual) Monocytes % (Manual) Eosinophils % (Manual) Nucleated RBC % Seg Neutrophils # Seg Neutrophils # Man Lymphocytes # (Manual) Monocytes # (Manual) Eosinophils # (Manual) APTT POC ABG pH 7.528 H ABG pH POC ABG pCO2 POC ABG pO2 63 L ABG pO2 ABG HCO3 ABG O2 Saturation ABG Base Excess ABG Hemoglobin VBG pH Oxyhemoglobin Sodium Potassium Chloride Carbon Dioxide BUN Creatinine Glucose POC Glucose 126 H 117 H Lactic Acid Calcium Phosphorus Total Bilirubin AST ALT C-Reactive Protein Total Protein Albumin Triglycerides Amylase Lipase Urine WBC (Auto) Vancomycin Trough Crossmatch 12/22/17 12/22/17 12/22/17 09:12 10:34 10:34 WBC 29.5 H RBC 3.44 L Hgb 11.2 L Hct 34.2 L MCV 99 H MCH 33 H MCHC RDW 13.1 L Plt Count 97 L Lymph % (Auto) [place] % (Auto) Eos % (Auto) [place] # Eos # Baso # Seg Neutrophils % Seg Neuts % (Manual) 88.0 H Lymphocytes % (Manual) 5.0 L Monocytes % (Manual) Eosinophils % (Manual) Nucleated RBC % Seg Neutrophils # Seg Neutrophils # Man 26.0 H Lymphocytes # (Manual) Monocytes # (Manual) Eosinophils # (Manual) APTT POC ABG pH ABG pH POC ABG pCO2 POC ABG pO2 ABG pO2 ABG HCO3 ABG O2 Saturation ABG Base Excess ABG Hemoglobin VBG pH Oxyhemoglobin Sodium 146 H Potassium 3.1 L Chloride Carbon Dioxide BUN 25 H Creatinine 0.7 L Glucose 146 H POC Glucose 168 H Lactic Acid Calcium 8.1 L Phosphorus Total Bilirubin AST ALT C-Reactive Protein Total Protein Albumin Triglycerides Amylase Lipase Urine WBC (Auto) Vancomycin Trough Crossmatch 12/22/17 12/22/17 12/22/17 14:51 17:21 21:43 WBC RBC Hgb Hct MCV MCH MCHC RDW Plt Count Lymph % (Auto) [place] % (Auto) Eos % (Auto) [place] # Eos # Baso # Seg Neutrophils % Seg Neuts % (Manual) Lymphocytes % (Manual) Monocytes % (Manual) Eosinophils % (Manual) Nucleated RBC % Seg Neutrophils # Seg Neutrophils # Man Lymphocytes # (Manual) Monocytes # (Manual) Eosinophils # (Manual) APTT POC ABG pH ABG pH POC ABG pCO2 POC ABG pO2 ABG pO2 ABG HCO3 ABG O2 Saturation ABG Base Excess ABG Hemoglobin VBG pH Oxyhemoglobin Sodium Potassium Chloride Carbon Dioxide BUN Creatinine Glucose POC Glucose 125 H 110 H 153 H Lactic Acid Calcium Phosphorus Total Bilirubin AST ALT C-Reactive Protein Total Protein Albumin Triglycerides Amylase Lipase Urine WBC (Auto) Vancomycin Trough Crossmatch 12/23/17 12/23/17 12/23/17 04:33 05:28 09:25 WBC 31.4 H RBC 3.05 L Hgb 9.8 L Hct 30.2 L MCV 99 H MCH MCHC RDW 12.9 L Plt Count 101 L Lymph % (Auto) [place] % (Auto) Eos % (Auto) [place] # Eos # Baso # Seg Neutrophils % Seg Neuts % (Manual) 97 H Lymphocytes % (Manual) 2 L Monocytes % (Manual) Eosinophils % (Manual) Nucleated RBC % Seg Neutrophils # Seg Neutrophils # Man 31.1 H Lymphocytes # (Manual) 0.5 L Monocytes # (Manual) Eosinophils # (Manual) APTT POC ABG pH 7.573 H ABG pH POC ABG pCO2 31.0 L POC ABG pO2 63 L ABG pO2 ABG HCO3 ABG O2 Saturation ABG Base Excess ABG Hemoglobin VBG pH Oxyhemoglobin Sodium Potassium Chloride Carbon Dioxide BUN Creatinine Glucose POC Glucose 124 H Lactic Acid Calcium Phosphorus Total Bilirubin AST ALT C-Reactive Protein Total Protein Albumin Triglycerides Amylase Lipase Urine WBC (Auto) Vancomycin Trough Crossmatch 12/23/17 12/23/17 12/23/17 09:25 10:08 14:20 WBC RBC Hgb Hct MCV MCH MCHC RDW Plt Count Lymph % (Auto) [place] % (Auto) Eos % (Auto) [place] # Eos # Baso # Seg Neutrophils % Seg Neuts % (Manual) Lymphocytes % (Manual) Monocytes % (Manual) Eosinophils % (Manual) Nucleated RBC % Seg Neutrophils # Seg Neutrophils # Man Lymphocytes # (Manual) Monocytes # (Manual) Eosinophils # (Manual) APTT POC ABG pH ABG pH POC ABG pCO2 POC ABG pO2 ABG pO2 ABG HCO3 ABG O2 Saturation ABG Base Excess ABG Hemoglobin VBG pH Oxyhemoglobin Sodium Potassium 3.1 L Chloride Carbon Dioxide BUN Creatinine 0.6 L Glucose 169 H POC Glucose 171 H 211 H Lactic Acid Calcium 7.9 L Phosphorus Total Bilirubin AST ALT C-Reactive Protein Total Protein Albumin Triglycerides Amylase Lipase Urine WBC (Auto) Vancomycin Trough Crossmatch 12/23/17 12/23/17 12/24/17 18:59 21:49 01:47 WBC RBC Hgb Hct MCV MCH MCHC RDW Plt Count Lymph % (Auto) [place] % (Auto) Eos % (Auto) [place] # Eos # Baso # Seg Neutrophils % Seg Neuts % (Manual) Lymphocytes % (Manual) Monocytes % (Manual) Eosinophils % (Manual) Nucleated RBC % Seg Neutrophils # Seg Neutrophils # Man Lymphocytes # (Manual) Monocytes # (Manual) Eosinophils # (Manual) APTT POC ABG pH ABG pH POC ABG pCO2 POC ABG pO2 ABG pO2 ABG HCO3 ABG O2 Saturation ABG Base Excess ABG Hemoglobin VBG pH Oxyhemoglobin Sodium Potassium Chloride Carbon Dioxide BUN Creatinine Glucose POC Glucose 175 H 146 H 143 H Lactic Acid Calcium Phosphorus Total Bilirubin AST ALT C-Reactive Protein Total Protein Albumin Triglycerides Amylase Lipase Urine WBC (Auto) Vancomycin Trough Crossmatch 12/24/17 12/24/17 12/24/17 05:40 10:12 13:12 WBC RBC Hgb Hct MCV MCH MCHC RDW Plt Count Lymph % (Auto) [place] % (Auto) Eos % (Auto) [place] # Eos # Baso # Seg Neutrophils % Seg Neuts % (Manual) Lymphocytes % (Manual) Monocytes % (Manual) Eosinophils % (Manual) Nucleated RBC % Seg Neutrophils # Seg Neutrophils # Man Lymphocytes # (Manual) Monocytes # (Manual) Eosinophils # (Manual) APTT POC ABG pH 7.558 H ABG pH POC ABG pCO2 27.6 L POC ABG pO2 71 L ABG pO2 ABG HCO3 ABG O2 Saturation ABG Base Excess ABG Hemoglobin VBG pH Oxyhemoglobin Sodium Potassium Chloride Carbon Dioxide BUN Creatinine Glucose POC Glucose 118 H 111 H Lactic Acid Calcium Phosphorus Total Bilirubin AST ALT C-Reactive Protein Total Protein Albumin Triglycerides Amylase Lipase Urine WBC (Auto) Vancomycin Trough Crossmatch 12/24/17 12/24/17 12/24/17 16:26 20:44 21:49 WBC RBC Hgb Hct MCV MCH MCHC RDW Plt Count Lymph % (Auto) [place] % (Auto) Eos % (Auto) [place] # Eos # Baso # Seg Neutrophils % Seg Neuts % (Manual) Lymphocytes % (Manual) Monocytes % (Manual) Eosinophils % (Manual) Nucleated RBC % Seg Neutrophils # Seg Neutrophils # Man Lymphocytes # (Manual) Monocytes # (Manual) Eosinophils # (Manual) APTT POC ABG pH ABG pH POC ABG pCO2 POC ABG pO2 ABG pO2 ABG HCO3 ABG O2 Saturation ABG Base Excess ABG Hemoglobin VBG pH Oxyhemoglobin Sodium Potassium Chloride Carbon Dioxide BUN Creatinine Glucose POC Glucose 113 H 124 H 115 H Lactic Acid Calcium Phosphorus Total Bilirubin AST ALT C-Reactive Protein Total Protein Albumin Triglycerides Amylase Lipase Urine WBC (Auto) Vancomycin Trough Crossmatch 12/24/17 12/25/17 12/25/17 Unknown 02:26 03:38 WBC RBC Hgb Hct MCV MCH MCHC RDW Plt Count Lymph % (Auto) [place] % (Auto) Eos % (Auto) [place] # Eos # Baso # Seg Neutrophils % Seg Neuts % (Manual) Lymphocytes % (Manual) Monocytes % (Manual) Eosinophils % (Manual) Nucleated RBC % Seg Neutrophils # Seg Neutrophils # Man Lymphocytes # (Manual) Monocytes # (Manual) Eosinophils # (Manual) APTT POC ABG pH 7.503 H ABG pH POC ABG pCO2 POC ABG pO2 66 L ABG pO2 ABG HCO3 ABG O2 Saturation ABG Base Excess ABG Hemoglobin VBG pH Oxyhemoglobin Sodium Potassium 3.0 L Chloride Carbon Dioxide BUN Creatinine 0.5 L Glucose 166 H POC Glucose 106 H Lactic Acid Calcium 7.8 L Phosphorus Total Bilirubin AST ALT C-Reactive Protein Total Protein Albumin Triglycerides Amylase Lipase Urine WBC (Auto) Vancomycin Trough Crossmatch 12/25/17 12/25/17 12/25/17 04:58 12:58 15:06 WBC RBC Hgb Hct MCV MCH MCHC RDW Plt Count Lymph % (Auto) [place] % (Auto) Eos % (Auto) [place] # Eos # Baso # Seg Neutrophils % Seg Neuts % (Manual) Lymphocytes % (Manual) Monocytes % (Manual) Eosinophils % (Manual) Nucleated RBC % Seg Neutrophils # Seg Neutrophils # Man Lymphocytes # (Manual) Monocytes # (Manual) Eosinophils # (Manual) APTT POC ABG pH ABG pH POC ABG pCO2 POC ABG pO2 ABG pO2 ABG HCO3 ABG O2 Saturation ABG Base Excess ABG Hemoglobin VBG pH Oxyhemoglobin Sodium Potassium Chloride Carbon Dioxide BUN Creatinine Glucose POC Glucose 113 H 118 H Lactic Acid Calcium Phosphorus Total Bilirubin AST ALT C-Reactive Protein Total Protein Albumin Triglycerides Amylase Lipase Urine WBC (Auto) Vancomycin Trough 22.5 H Crossmatch 12/25/17 12/25/17 12/25/17 17:59 21:33 Unknown WBC 20.5 H RBC 2.75 L Hgb 9.1 L Hct 27.1 L MCV 99 H MCH 33 H MCHC RDW Plt Count 126 L Lymph % (Auto) [place] % (Auto) Eos % (Auto) [place] # Eos # Baso # Seg Neutrophils % Seg Neuts % (Manual) 89.0 H Lymphocytes % (Manual) 6.0 L Monocytes % (Manual) Eosinophils % (Manual) Nucleated RBC % Seg Neutrophils # Seg Neutrophils # Man 18.2 H Lymphocytes # (Manual) Monocytes # (Manual) Eosinophils # (Manual) APTT POC ABG pH ABG pH POC ABG pCO2 POC ABG pO2 ABG pO2 ABG HCO3 ABG O2 Saturation ABG Base Excess ABG Hemoglobin VBG pH Oxyhemoglobin Sodium Potassium Chloride Carbon Dioxide BUN Creatinine Glucose POC Glucose 145 H 167 H Lactic Acid Calcium Phosphorus Total Bilirubin AST ALT C-Reactive Protein Total Protein Albumin Triglycerides Amylase Lipase Urine WBC (Auto) Vancomycin Trough Crossmatch 12/25/17 12/26/17 12/26/17 Unknown 02:26 05:29 WBC RBC Hgb Hct MCV MCH MCHC RDW Plt Count Lymph % (Auto) [place] % (Auto) Eos % (Auto) [place] # Eos # Baso # Seg Neutrophils % Seg Neuts % (Manual) Lymphocytes % (Manual) Monocytes % (Manual) Eosinophils % (Manual) Nucleated RBC % Seg Neutrophils # Seg Neutrophils # Man Lymphocytes # (Manual) Monocytes # (Manual) Eosinophils # (Manual) APTT POC ABG pH ABG pH POC ABG pCO2 POC ABG pO2 ABG pO2 ABG HCO3 ABG O2 Saturation ABG Base Excess ABG Hemoglobin VBG pH Oxyhemoglobin Sodium Potassium 2.8 L* Chloride Carbon Dioxide BUN Creatinine 0.6 L Glucose POC Glucose 167 H 216 H Lactic Acid Calcium 7.4 L Phosphorus Total Bilirubin AST ALT C-Reactive Protein Total Protein Albumin Triglycerides Amylase Lipase Urine WBC (Auto) Vancomycin Trough Crossmatch 12/26/17 12/26/17 12/26/17 10:21 14:30 18:35 WBC RBC Hgb Hct MCV MCH MCHC RDW Plt Count Lymph % (Auto) [place] % (Auto) Eos % (Auto) [place] # Eos # Baso # Seg Neutrophils % Seg Neuts % (Manual) Lymphocytes % (Manual) Monocytes % (Manual) Eosinophils % (Manual) Nucleated RBC % Seg Neutrophils # Seg Neutrophils # Man Lymphocytes # (Manual) Monocytes # (Manual) Eosinophils # (Manual) APTT POC ABG pH ABG pH POC ABG pCO2 POC ABG pO2 ABG pO2 ABG HCO3 ABG O2 Saturation ABG Base Excess ABG Hemoglobin VBG pH Oxyhemoglobin Sodium Potassium Chloride Carbon Dioxide BUN Creatinine Glucose POC Glucose 164 H 157 H 146 H Lactic Acid Calcium Phosphorus Total Bilirubin AST ALT C-Reactive Protein Total Protein Albumin Triglycerides Amylase Lipase Urine WBC (Auto) Vancomycin Trough Crossmatch 12/26/17 12/26/17 12/27/17 21:21 Unknown 01:54 WBC RBC Hgb Hct MCV MCH MCHC RDW Plt Count Lymph % (Auto) [place] % (Auto) Eos % (Auto) [place] # Eos # Baso # Seg Neutrophils % Seg Neuts % (Manual) Lymphocytes % (Manual) Monocytes % (Manual) Eosinophils % (Manual) Nucleated RBC % Seg Neutrophils # Seg Neutrophils # Man Lymphocytes # (Manual) Monocytes # (Manual) Eosinophils # (Manual) APTT POC ABG pH ABG pH POC ABG pCO2 POC ABG pO2 ABG pO2 ABG HCO3 ABG O2 Saturation ABG Base Excess ABG Hemoglobin VBG pH Oxyhemoglobin Sodium Potassium 3.0 L Chloride Carbon Dioxide BUN Creatinine 0.5 L Glucose 166 H POC Glucose 132 H 157 H Lactic Acid Calcium 7.8 L Phosphorus Total Bilirubin AST ALT C-Reactive Protein Total Protein Albumin Triglycerides Amylase Lipase Urine WBC (Auto) Vancomycin Trough Crossmatch 12/27/17 12/27/17 12/27/17 05:20 05:20 05:44 WBC 26.4 H RBC 2.83 L Hgb 9.3 L Hct 27.6 L MCV 98 H MCH 33 H MCHC RDW Plt Count Lymph % (Auto) [place] % (Auto) Eos % (Auto) [place] # Eos # Baso # Seg Neutrophils % Seg Neuts % (Manual) 85.0 H Lymphocytes % (Manual) 5.0 L Monocytes % (Manual) Eosinophils % (Manual) Nucleated RBC % Seg Neutrophils # Seg Neutrophils # Man 22.4 H Lymphocytes # (Manual) Monocytes # (Manual) Eosinophils # (Manual) 0.5 H APTT POC ABG pH ABG pH POC ABG pCO2 POC ABG pO2 ABG pO2 ABG HCO3 ABG O2 Saturation ABG Base Excess ABG Hemoglobin VBG pH Oxyhemoglobin Sodium Potassium 2.3 L* D Chloride Carbon Dioxide BUN 7 L Creatinine 0.6 L Glucose 123 H POC Glucose 128 H Lactic Acid Calcium 8.1 L Phosphorus Total Bilirubin AST ALT C-Reactive Protein Total Protein Albumin Triglycerides Amylase Lipase Urine WBC (Auto) Vancomycin Trough Crossmatch 12/27/17 12/27/17 12/27/17 10:04 14:44 15:30 WBC RBC Hgb Hct MCV MCH MCHC RDW Plt Count Lymph % (Auto) [place] % (Auto) Eos % (Auto) [place] # Eos # Baso # Seg Neutrophils % Seg Neuts % (Manual) Lymphocytes % (Manual) Monocytes % (Manual) Eosinophils % (Manual) Nucleated RBC % Seg Neutrophils # Seg Neutrophils # Man Lymphocytes # (Manual) Monocytes # (Manual) Eosinophils # (Manual) APTT POC ABG pH ABG pH POC ABG pCO2 POC ABG pO2 ABG pO2 ABG HCO3 ABG O2 Saturation ABG Base Excess ABG Hemoglobin VBG pH Oxyhemoglobin Sodium Potassium 3.1 L D Chloride Carbon Dioxide BUN Creatinine Glucose POC Glucose 115 H 128 H Lactic Acid Calcium Phosphorus Total Bilirubin AST ALT C-Reactive Protein Total Protein Albumin Triglycerides Amylase Lipase Urine WBC (Auto) Vancomycin Trough Crossmatch 12/28/17 12/28/17 12/28/17 00:39 02:13 05:17 WBC RBC Hgb Hct MCV MCH MCHC RDW Plt Count Lymph % (Auto) [place] % (Auto) Eos % (Auto) [place] # Eos # Baso # Seg Neutrophils % Seg Neuts % (Manual) Lymphocytes % (Manual) Monocytes % (Manual) Eosinophils % (Manual) Nucleated RBC % Seg Neutrophils # Seg Neutrophils # Man Lymphocytes # (Manual) Monocytes # (Manual) Eosinophils # (Manual) APTT POC ABG pH ABG pH 7.497 H POC ABG pCO2 POC ABG pO2 ABG pO2 71.4 L ABG HCO3 29.9 H ABG O2 Saturation ABG Base Excess 6.2 H ABG Hemoglobin 7.9 L VBG pH Oxyhemoglobin 94.9 L Sodium Potassium Chloride Carbon Dioxide BUN Creatinine Glucose POC Glucose 112 H 108 H Lactic Acid Calcium Phosphorus Total Bilirubin AST ALT C-Reactive Protein Total Protein Albumin Triglycerides Amylase Lipase Urine WBC (Auto) Vancomycin Trough Crossmatch 12/28/17 12/28/17 12/28/17 08:47 08:47 09:10 WBC 28.1 H RBC 2.76 L Hgb 9.1 L Hct 27.0 L MCV 98 H MCH 33 H MCHC RDW Plt Count Lymph % (Auto) [place] % (Auto) Eos % (Auto) [place] # Eos # Baso # Seg Neutrophils % Seg Neuts % (Manual) Lymphocytes % (Manual) Monocytes % (Manual) Eosinophils % (Manual) Nucleated RBC % Seg Neutrophils # Seg Neutrophils # Man Lymphocytes # (Manual) Monocytes # (Manual) Eosinophils # (Manual) APTT POC ABG pH ABG pH POC ABG pCO2 POC ABG pO2 ABG pO2 ABG HCO3 ABG O2 Saturation ABG Base Excess ABG Hemoglobin VBG pH Oxyhemoglobin Sodium Potassium 2.2 L* D Chloride Carbon Dioxide BUN 5 L Creatinine 0.5 L Glucose 106 H POC Glucose Lactic Acid Calcium 8.3 L Phosphorus 2.20 L Total Bilirubin AST ALT C-Reactive Protein Total Protein Albumin Triglycerides Amylase Lipase Urine WBC (Auto) Vancomycin Trough Crossmatch 12/28/17 12/28/17 12/28/17 13:28 14:22 18:48 WBC RBC Hgb Hct MCV MCH MCHC RDW Plt Count Lymph % (Auto) [place] % (Auto) Eos % (Auto) [place] # Eos # Baso # Seg Neutrophils % Seg Neuts % (Manual) Lymphocytes % (Manual) Monocytes % (Manual) Eosinophils % (Manual) Nucleated RBC % Seg Neutrophils # Seg Neutrophils # Man Lymphocytes # (Manual) Monocytes # (Manual) Eosinophils # (Manual) APTT POC ABG pH ABG pH 7.476 H POC ABG pCO2 POC ABG pO2 ABG pO2 167.7 H ABG HCO3 30.9 H ABG O2 Saturation 99.1 H ABG Base Excess 6.7 H ABG Hemoglobin 8.5 L VBG pH Oxyhemoglobin Sodium Potassium Chloride Carbon Dioxide BUN Creatinine Glucose POC Glucose 141 H 129 H Lactic Acid Calcium Phosphorus Total Bilirubin AST ALT C-Reactive Protein Total Protein Albumin Triglycerides Amylase Lipase Urine WBC (Auto) Vancomycin Trough Crossmatch 12/28/17 12/29/17 12/29/17 21:22 02:45 05:11 WBC RBC Hgb Hct MCV MCH MCHC RDW Plt Count Lymph % (Auto) [place] % (Auto) Eos % (Auto) [place] # Eos # Baso # Seg Neutrophils % Seg Neuts % (Manual) Lymphocytes % (Manual) Monocytes % (Manual) Eosinophils % (Manual) Nucleated RBC % Seg Neutrophils # Seg Neutrophils # Man Lymphocytes # (Manual) Monocytes # (Manual) Eosinophils # (Manual) APTT POC ABG pH ABG pH POC ABG pCO2 POC ABG pO2 ABG pO2 ABG HCO3 ABG O2 Saturation ABG Base Excess ABG Hemoglobin VBG pH Oxyhemoglobin Sodium Potassium Chloride Carbon Dioxide BUN Creatinine Glucose POC Glucose 123 H 138 H 138 H Lactic Acid Calcium Phosphorus Total Bilirubin AST ALT C-Reactive Protein Total Protein Albumin Triglycerides Amylase Lipase Urine WBC (Auto) Vancomycin Trough Crossmatch 12/29/17 12/29/17 12/29/17 05:50 08:04 08:04 WBC 20.8 H RBC 2.26 L Hgb 7.5 L Hct 22.7 L MCV 100 H MCH 33 H MCHC RDW Plt Count Lymph % (Auto) [place] % (Auto) Eos % (Auto) [place] # Eos # Baso # Seg Neutrophils % Seg Neuts % (Manual) 93.0 H Lymphocytes % (Manual) 2.0 L Monocytes % (Manual) Eosinophils % (Manual) Nucleated RBC % Seg Neutrophils # Seg Neutrophils # Man 19.3 H Lymphocytes # (Manual) 0.4 L Monocytes # (Manual) Eosinophils # (Manual) 0.7 H APTT POC ABG pH ABG pH 7.467 H POC ABG pCO2 POC ABG pO2 ABG pO2 ABG HCO3 28.2 H ABG O2 Saturation ABG Base Excess 4.0 H ABG Hemoglobin < 5.1 L VBG pH Oxyhemoglobin Sodium Potassium 3.0 L D Chloride Carbon Dioxide BUN Creatinine 0.5 L Glucose 147 H POC Glucose Lactic Acid Calcium 7.8 L Phosphorus Total Bilirubin AST ALT C-Reactive Protein Total Protein 5.6 L Albumin 2.4 L Triglycerides Amylase Lipase Urine WBC (Auto) Vancomycin Trough Crossmatch 12/29/17 12/29/17 12/29/17 08:20 10:59 14:09 WBC RBC Hgb Hct MCV MCH MCHC RDW Plt Count Lymph % (Auto) [place] % (Auto) Eos % (Auto) [place] # Eos # Baso # Seg Neutrophils % Seg Neuts % (Manual) Lymphocytes % (Manual) Monocytes % (Manual) Eosinophils % (Manual) Nucleated RBC % Seg Neutrophils # Seg Neutrophils # Man Lymphocytes # (Manual) Monocytes # (Manual) Eosinophils # (Manual) APTT POC ABG pH ABG pH POC ABG pCO2 POC ABG pO2 ABG pO2 ABG HCO3 ABG O2 Saturation ABG Base Excess ABG Hemoglobin VBG pH Oxyhemoglobin Sodium Potassium Chloride Carbon Dioxide BUN Creatinine Glucose POC Glucose 153 H 186 H 183 H Lactic Acid Calcium Phosphorus Total Bilirubin AST ALT C-Reactive Protein Total Protein Albumin Triglycerides Amylase Lipase Urine WBC (Auto) Vancomycin Trough Crossmatch 12/29/17 12/29/17 12/29/17 18:03 22:05 22:56 WBC RBC Hgb Hct MCV MCH MCHC RDW Plt Count Lymph % (Auto) [place] % (Auto) Eos % (Auto) [place] # Eos # Baso # Seg Neutrophils % Seg Neuts % (Manual) Lymphocytes % (Manual) Monocytes % (Manual) Eosinophils % (Manual) Nucleated RBC % Seg Neutrophils # Seg Neutrophils # Man Lymphocytes # (Manual) Monocytes # (Manual) Eosinophils # (Manual) APTT POC ABG pH ABG pH POC ABG pCO2 POC ABG pO2 ABG pO2 ABG HCO3 ABG O2 Saturation ABG Base Excess ABG Hemoglobin VBG pH Oxyhemoglobin Sodium Potassium Chloride Carbon Dioxide BUN Creatinine Glucose POC Glucose 159 H 146 H 179 H Lactic Acid Calcium Phosphorus Total Bilirubin AST ALT C-Reactive Protein Total Protein Albumin Triglycerides Amylase Lipase Urine WBC (Auto) Vancomycin Trough Crossmatch 12/30/17 12/30/17 12/30/17 02:03 04:50 04:50 WBC 18.3 H RBC 2.22 L Hgb 7.4 L Hct 23.0 L MCV 104 H MCH 33 H MCHC RDW Plt Count 137 L Lymph % (Auto) 9.0 L [place] % (Auto) Eos % (Auto) [place] # Eos # 0.5 H Baso # Seg Neutrophils % 84.9 H Seg Neuts % (Manual) Lymphocytes % (Manual) Monocytes % (Manual) Eosinophils % (Manual) Nucleated RBC % Seg Neutrophils # 15.6 H Seg Neutrophils # Man Lymphocytes # (Manual) Monocytes # (Manual) Eosinophils # (Manual) APTT POC ABG pH ABG pH POC ABG pCO2 POC ABG pO2 ABG pO2 ABG HCO3 ABG O2 Saturation ABG Base Excess ABG Hemoglobin VBG pH Oxyhemoglobin Sodium 147 H Potassium 3.1 L D Chloride 107.5 H Carbon Dioxide BUN Creatinine 0.5 L Glucose 120 H POC Glucose 118 H Lactic Acid Calcium 7.4 L Phosphorus Total Bilirubin AST ALT C-Reactive Protein Total Protein Albumin Triglycerides Amylase Lipase Urine WBC (Auto) Vancomycin Trough Crossmatch 12/30/17 12/30/17 12/30/17 05:04 13:53 17:33 WBC RBC Hgb Hct MCV MCH MCHC RDW Plt Count Lymph % (Auto) [place] % (Auto) Eos % (Auto) [place] # Eos # Baso # Seg Neutrophils % Seg Neuts % (Manual) Lymphocytes % (Manual) Monocytes % (Manual) Eosinophils % (Manual) Nucleated RBC % Seg Neutrophils # Seg Neutrophils # Man Lymphocytes # (Manual) Monocytes # (Manual) Eosinophils # (Manual) APTT POC ABG pH ABG pH POC ABG pCO2 POC ABG pO2 ABG pO2 ABG HCO3 ABG O2 Saturation ABG Base Excess ABG Hemoglobin VBG pH Oxyhemoglobin Sodium Potassium Chloride Carbon Dioxide BUN Creatinine Glucose POC Glucose 150 H 113 H 145 H Lactic Acid Calcium Phosphorus Total Bilirubin AST ALT C-Reactive Protein Total Protein Albumin Triglycerides Amylase Lipase Urine WBC (Auto) Vancomycin Trough Crossmatch 12/31/17 12/31/17 12/31/17 01:54 03:15 03:15 WBC 17.1 H RBC 2.08 L Hgb 6.9 L Hct 20.6 L MCV 99 H MCH 33 H MCHC RDW 13.1 L Plt Count Lymph % (Auto) 10.5 L [place] % (Auto) Eos % (Auto) [place] # Eos # 0.6 H Baso # Seg Neutrophils % 82.3 H Seg Neuts % (Manual) Lymphocytes % (Manual) Monocytes % (Manual) Eosinophils % (Manual) Nucleated RBC % Seg Neutrophils # 14.0 H Seg Neutrophils # Man Lymphocytes # (Manual) Monocytes # (Manual) Eosinophils # (Manual) APTT POC ABG pH ABG pH POC ABG pCO2 POC ABG pO2 ABG pO2 ABG HCO3 ABG O2 Saturation ABG Base Excess ABG Hemoglobin VBG pH Oxyhemoglobin Sodium Potassium 3.5 L Chloride Carbon Dioxide BUN Creatinine 0.6 L Glucose POC Glucose 69 L Lactic Acid Calcium 7.8 L Phosphorus Total Bilirubin AST ALT C-Reactive Protein Total Protein Albumin Triglycerides Amylase Lipase Urine WBC (Auto) Vancomycin Trough Crossmatch 12/31/17 12/31/17 12/31/17 05:15 09:25 10:17 WBC RBC Hgb Hct MCV MCH MCHC RDW Plt Count Lymph % (Auto) [place] % (Auto) Eos % (Auto) [place] # Eos # Baso # Seg Neutrophils % Seg Neuts % (Manual) Lymphocytes % (Manual) Monocytes % (Manual) Eosinophils % (Manual) Nucleated RBC % Seg Neutrophils # Seg Neutrophils # Man Lymphocytes # (Manual) Monocytes # (Manual) Eosinophils # (Manual) APTT POC ABG pH ABG pH 7.516 H POC ABG pCO2 POC ABG pO2 ABG pO2 69.2 L ABG HCO3 28.7 H ABG O2 Saturation ABG Base Excess 5.3 H ABG Hemoglobin 6.6 L VBG pH Oxyhemoglobin 93.8 L Sodium Potassium Chloride Carbon Dioxide BUN Creatinine Glucose POC Glucose 143 H Lactic Acid Calcium Phosphorus Total Bilirubin AST ALT C-Reactive Protein Total Protein Albumin Triglycerides Amylase Lipase Urine WBC (Auto) Vancomycin Trough Crossmatch See Detail 12/31/17 12/31/17 12/31/17 14:20 18:30 21:40 WBC RBC Hgb Hct MCV MCH MCHC RDW Plt Count Lymph % (Auto) [place] % (Auto) Eos % (Auto) [place] # Eos # Baso # Seg Neutrophils % Seg Neuts % (Manual) Lymphocytes % (Manual) Monocytes % (Manual) Eosinophils % (Manual) Nucleated RBC % Seg Neutrophils # Seg Neutrophils # Man Lymphocytes # (Manual) Monocytes # (Manual) Eosinophils # (Manual) APTT POC ABG pH ABG pH POC ABG pCO2 POC ABG pO2 ABG pO2 ABG HCO3 ABG O2 Saturation ABG Base Excess ABG Hemoglobin VBG pH Oxyhemoglobin Sodium Potassium Chloride Carbon Dioxide BUN Creatinine Glucose POC Glucose 175 H 137 H 182 H Lactic Acid Calcium Phosphorus Total Bilirubin AST ALT C-Reactive Protein Total Protein Albumin Triglycerides Amylase Lipase Urine WBC (Auto) Vancomycin Trough Crossmatch 12/31/17 01/01/18 01/01/18 23:34 02:09 04:00 WBC 16.4 H RBC 2.41 L Hgb 7.8 L Hct 23.6 L MCV 98 H MCH 33 H MCHC RDW Plt Count Lymph % (Auto) 10.7 L [place] % (Auto) Eos % (Auto) [place] # Eos # 0.7 H Baso # 0.2 H Seg Neutrophils % 79.0 H Seg Neuts % (Manual) Lymphocytes % (Manual) Monocytes % (Manual) Eosinophils % (Manual) Nucleated RBC % Seg Neutrophils # 12.9 H Seg Neutrophils # Man Lymphocytes # (Manual) Monocytes # (Manual) Eosinophils # (Manual) APTT POC ABG pH ABG pH POC ABG pCO2 POC ABG pO2 ABG pO2 ABG HCO3 ABG O2 Saturation ABG Base Excess ABG Hemoglobin VBG pH Oxyhemoglobin Sodium Potassium Chloride Carbon Dioxide BUN Creatinine Glucose POC Glucose 132 H 117 H Lactic Acid Calcium Phosphorus Total Bilirubin AST ALT C-Reactive Protein Total Protein Albumin Triglycerides Amylase Lipase Urine WBC (Auto) Vancomycin Trough Crossmatch 01/01/18 01/01/18 01/01/18 04:00 04:04 05:32 WBC RBC Hgb Hct MCV MCH MCHC RDW Plt Count Lymph % (Auto) [place] % (Auto) Eos % (Auto) [place] # Eos # Baso # Seg Neutrophils % Seg Neuts % (Manual) Lymphocytes % (Manual) Monocytes % (Manual) Eosinophils % (Manual) Nucleated RBC % Seg Neutrophils # Seg Neutrophils # Man Lymphocytes # (Manual) Monocytes # (Manual) Eosinophils # (Manual) APTT POC ABG pH ABG pH 7.458 H POC ABG pCO2 POC ABG pO2 ABG pO2 67.5 L ABG HCO3 27.5 H ABG O2 Saturation 94.4 L ABG Base Excess 3.4 H ABG Hemoglobin 7.8 L VBG pH Oxyhemoglobin 92.1 L Sodium Potassium Chloride Carbon Dioxide BUN Creatinine 0.4 L Glucose 129 H POC Glucose 129 H Lactic Acid Calcium 7.9 L Phosphorus Total Bilirubin AST ALT C-Reactive Protein Total Protein Albumin Triglycerides Amylase Lipase Urine WBC (Auto) Vancomycin Trough Crossmatch 01/01/18 01/01/18 01/01/18 10:10 12:38 17:27 WBC RBC Hgb Hct MCV MCH MCHC RDW Plt Count Lymph % (Auto) [place] % (Auto) Eos % (Auto) [place] # Eos # Baso # Seg Neutrophils % Seg Neuts % (Manual) Lymphocytes % (Manual) Monocytes % (Manual) Eosinophils % (Manual) Nucleated RBC % Seg Neutrophils # Seg Neutrophils # Man Lymphocytes # (Manual) Monocytes # (Manual) Eosinophils # (Manual) APTT POC ABG pH ABG pH POC ABG pCO2 POC ABG pO2 ABG pO2 ABG HCO3 ABG O2 Saturation ABG Base Excess ABG Hemoglobin VBG pH Oxyhemoglobin Sodium Potassium Chloride Carbon Dioxide BUN Creatinine Glucose POC Glucose 155 H 179 H 152 H Lactic Acid Calcium Phosphorus Total Bilirubin AST ALT C-Reactive Protein Total Protein Albumin Triglycerides Amylase Lipase Urine WBC (Auto) Vancomycin Trough Crossmatch 01/01/18 01/02/18 01/02/18 21:36 01:42 04:10 WBC 12.1 H RBC 2.29 L Hgb 7.5 L Hct 22.7 L MCV 99 H MCH 33 H MCHC RDW Plt Count Lymph % (Auto) [place] % (Auto) Eos % (Auto) 5.5 H [place] # 0.9 H Eos # 0.7 H Baso # Seg Neutrophils % Seg Neuts % (Manual) Lymphocytes % (Manual) Monocytes % (Manual) Eosinophils % (Manual) Nucleated RBC % Seg Neutrophils # 8.3 H Seg Neutrophils # Man Lymphocytes # (Manual) Monocytes # (Manual) Eosinophils # (Manual) APTT POC ABG pH ABG pH POC ABG pCO2 POC ABG pO2 ABG pO2 ABG HCO3 ABG O2 Saturation ABG Base Excess ABG Hemoglobin VBG pH Oxyhemoglobin Sodium Potassium Chloride Carbon Dioxide BUN Creatinine Glucose POC Glucose 118 H 117 H Lactic Acid Calcium Phosphorus Total Bilirubin AST ALT C-Reactive Protein Total Protein Albumin Triglycerides Amylase Lipase Urine WBC (Auto) Vancomycin Trough Crossmatch 01/02/18 01/02/18 01/02/18 04:10 04:57 13:42 WBC RBC Hgb Hct MCV MCH MCHC RDW Plt Count Lymph % (Auto) [place] % (Auto) Eos % (Auto) [place] # Eos # Baso # Seg Neutrophils % Seg Neuts % (Manual) Lymphocytes % (Manual) Monocytes % (Manual) Eosinophils % (Manual) Nucleated RBC % Seg Neutrophils # Seg Neutrophils # Man Lymphocytes # (Manual) Monocytes # (Manual) Eosinophils # (Manual) APTT POC ABG pH ABG pH POC ABG pCO2 POC ABG pO2 ABG pO2 ABG HCO3 ABG O2 Saturation ABG Base Excess ABG Hemoglobin VBG pH Oxyhemoglobin Sodium Potassium Chloride 97.0 L Carbon Dioxide BUN Creatinine 0.4 L Glucose POC Glucose 107 H 133 H Lactic Acid Calcium 8.1 L Phosphorus Total Bilirubin AST ALT C-Reactive Protein Total Protein 6.0 L Albumin 2.5 L Triglycerides Amylase Lipase Urine WBC (Auto) Vancomycin Trough Crossmatch 01/02/18 01/02/18 01/03/18 17:33 22:11 02:18 WBC RBC Hgb Hct MCV MCH MCHC RDW Plt Count Lymph % (Auto) [place] % (Auto) Eos % (Auto) [place] # Eos # Baso # Seg Neutrophils % Seg Neuts % (Manual) Lymphocytes % (Manual) Monocytes % (Manual) Eosinophils % (Manual) Nucleated RBC % Seg Neutrophils # Seg Neutrophils # Man Lymphocytes # (Manual) Monocytes # (Manual) Eosinophils # (Manual) APTT POC ABG pH ABG pH POC ABG pCO2 POC ABG pO2 ABG pO2 ABG HCO3 ABG O2 Saturation ABG Base Excess ABG Hemoglobin VBG pH Oxyhemoglobin Sodium Potassium Chloride Carbon Dioxide BUN Creatinine Glucose POC Glucose 146 H 171 H 162 H Lactic Acid Calcium Phosphorus Total Bilirubin AST ALT C-Reactive Protein Total Protein Albumin Triglycerides Amylase Lipase Urine WBC (Auto) Vancomycin Trough Crossmatch 01/03/18 01/03/18 01/03/18 04:56 05:21 17:20 WBC RBC Hgb Hct MCV MCH MCHC RDW Plt Count Lymph % (Auto) [place] % (Auto) Eos % (Auto) [place] # Eos # Baso # Seg Neutrophils % Seg Neuts % (Manual) Lymphocytes % (Manual) Monocytes % (Manual) Eosinophils % (Manual) Nucleated RBC % Seg Neutrophils # Seg Neutrophils # Man Lymphocytes # (Manual) Monocytes # (Manual) Eosinophils # (Manual) APTT POC ABG pH ABG pH POC ABG pCO2 POC ABG pO2 ABG pO2 79.5 L ABG HCO3 31.4 H ABG O2 Saturation ABG Base Excess 6.3 H ABG Hemoglobin 10.4 L VBG pH Oxyhemoglobin 94.2 L Sodium Potassium Chloride Carbon Dioxide BUN Creatinine Glucose POC Glucose 163 H 153 H Lactic Acid Calcium Phosphorus Total Bilirubin AST ALT C-Reactive Protein Total Protein Albumin Triglycerides Amylase Lipase Urine WBC (Auto) Vancomycin Trough Crossmatch 01/03/18 01/03/18 01/04/18 17:50 19:52 00:40 WBC RBC Hgb Hct MCV MCH MCHC RDW Plt Count Lymph % (Auto) [place] % (Auto) Eos % (Auto) [place] # Eos # Baso # Seg Neutrophils % Seg Neuts % (Manual) Lymphocytes % (Manual) Monocytes % (Manual) Eosinophils % (Manual) Nucleated RBC % Seg Neutrophils # Seg Neutrophils # Man Lymphocytes # (Manual) Monocytes # (Manual) Eosinophils # (Manual) APTT POC ABG pH ABG pH POC ABG pCO2 POC ABG pO2 ABG pO2 ABG HCO3 ABG O2 Saturation ABG Base Excess ABG Hemoglobin VBG pH Oxyhemoglobin Sodium Potassium Chloride Carbon Dioxide BUN Creatinine Glucose POC Glucose 157 H 147 H 158 H Lactic Acid Calcium Phosphorus Total Bilirubin AST ALT C-Reactive Protein Total Protein Albumin Triglycerides Amylase Lipase Urine WBC (Auto) Vancomycin Trough Crossmatch 01/04/18 01/04/18 01/04/18 04:01 05:13 06:12 WBC 11.5 H RBC 2.95 L Hgb 9.8 L Hct 29.5 L D MCV 100 H MCH 33 H MCHC RDW Plt Count Lymph % (Auto) [place] % (Auto) Eos % (Auto) [place] # Eos # Baso # Seg Neutrophils % Seg Neuts % (Manual) Lymphocytes % (Manual) Monocytes % (Manual) Eosinophils % (Manual) 6.0 H Nucleated RBC % Seg Neutrophils # Seg Neutrophils # Man Lymphocytes # (Manual) Monocytes # (Manual) Eosinophils # (Manual) 0.7 H APTT POC ABG pH ABG pH 7.498 H POC ABG pCO2 POC ABG pO2 ABG pO2 129.5 H ABG HCO3 30.1 H ABG O2 Saturation ABG Base Excess 6.4 H ABG Hemoglobin 9.3 L VBG pH Oxyhemoglobin Sodium Potassium Chloride Carbon Dioxide BUN Creatinine Glucose POC Glucose 163 H Lactic Acid Calcium Phosphorus Total Bilirubin AST ALT C-Reactive Protein Total Protein Albumin Triglycerides Amylase Lipase Urine WBC (Auto) Vancomycin Trough Crossmatch 01/04/18 01/04/18 01/04/18 06:12 10:55 14:29 WBC RBC Hgb Hct MCV MCH MCHC RDW Plt Count Lymph % (Auto) [place] % (Auto) Eos % (Auto) [place] # Eos # Baso # Seg Neutrophils % Seg Neuts % (Manual) Lymphocytes % (Manual) Monocytes % (Manual) Eosinophils % (Manual) Nucleated RBC % Seg Neutrophils # Seg Neutrophils # Man Lymphocytes # (Manual) Monocytes # (Manual) Eosinophils # (Manual) APTT POC ABG pH ABG pH POC ABG pCO2 POC ABG pO2 ABG pO2 ABG HCO3 ABG O2 Saturation ABG Base Excess ABG Hemoglobin VBG pH Oxyhemoglobin Sodium Potassium Chloride Carbon Dioxide BUN Creatinine 0.5 L Glucose 174 H POC Glucose 187 H 144 H Lactic Acid Calcium Phosphorus Total Bilirubin AST 41 H ALT C-Reactive Protein Total Protein Albumin 2.9 L Triglycerides Amylase Lipase Urine WBC (Auto) Vancomycin Trough Crossmatch 01/04/18 01/04/18 01/05/18 17:25 21:56 01:59 WBC RBC Hgb Hct MCV MCH MCHC RDW Plt Count Lymph % (Auto) [place] % (Auto) Eos % (Auto) [place] # Eos # Baso # Seg Neutrophils % Seg Neuts % (Manual) Lymphocytes % (Manual) Monocytes % (Manual) Eosinophils % (Manual) Nucleated RBC % Seg Neutrophils # Seg Neutrophils # Man Lymphocytes # (Manual) Monocytes # (Manual) Eosinophils # (Manual) APTT POC ABG pH ABG pH POC ABG pCO2 POC ABG pO2 ABG pO2 ABG HCO3 ABG O2 Saturation ABG Base Excess ABG Hemoglobin VBG pH Oxyhemoglobin Sodium Potassium Chloride Carbon Dioxide BUN Creatinine Glucose POC Glucose 156 H 171 H 162 H Lactic Acid Calcium Phosphorus Total Bilirubin AST ALT C-Reactive Protein Total Protein Albumin Triglycerides Amylase Lipase Urine WBC (Auto) Vancomycin Trough Crossmatch 01/05/18 01/05/18 01/05/18 03:50 06:00 06:07 WBC RBC Hgb Hct MCV MCH MCHC RDW Plt Count Lymph % (Auto) [place] % (Auto) Eos % (Auto) [place] # Eos # Baso # Seg Neutrophils % Seg Neuts % (Manual) Lymphocytes % (Manual) Monocytes % (Manual) Eosinophils % (Manual) Nucleated RBC % Seg Neutrophils # Seg Neutrophils # Man Lymphocytes # (Manual) Monocytes # (Manual) Eosinophils # (Manual) APTT POC ABG pH ABG pH POC ABG pCO2 POC ABG pO2 ABG pO2 64.6 L ABG HCO3 30.2 H ABG O2 Saturation 91.3 L ABG Base Excess 5.5 H ABG Hemoglobin 10.1 L VBG pH Oxyhemoglobin 89.0 L Sodium Potassium Chloride Carbon Dioxide BUN Creatinine 0.4 L Glucose 144 H POC Glucose 136 H Lactic Acid Calcium Phosphorus Total Bilirubin AST ALT C-Reactive Protein Total Protein Albumin Triglycerides Amylase Lipase Urine WBC (Auto) Vancomycin Trough Crossmatch 01/05/18 01/05/18 01/05/18 10:46 14:03 17:31 WBC RBC Hgb Hct MCV MCH MCHC RDW Plt Count Lymph % (Auto) [place] % (Auto) Eos % (Auto) [place] # Eos # Baso # Seg Neutrophils % Seg Neuts % (Manual) Lymphocytes % (Manual) Monocytes % (Manual) Eosinophils % (Manual) Nucleated RBC % Seg Neutrophils # Seg Neutrophils # Man Lymphocytes # (Manual) Monocytes # (Manual) Eosinophils # (Manual) APTT POC ABG pH ABG pH POC ABG pCO2 POC ABG pO2 ABG pO2 ABG HCO3 ABG O2 Saturation ABG Base Excess ABG Hemoglobin VBG pH Oxyhemoglobin Sodium Potassium Chloride Carbon Dioxide BUN Creatinine Glucose POC Glucose 147 H 141 H 192 H Lactic Acid Calcium Phosphorus Total Bilirubin AST ALT C-Reactive Protein Total Protein Albumin Triglycerides Amylase Lipase Urine WBC (Auto) Vancomycin Trough Crossmatch 01/05/18 01/05/18 01/06/18 22:12 Unknown 01:58 WBC RBC Hgb Hct MCV MCH MCHC RDW Plt Count Lymph % (Auto) [place] % (Auto) Eos % (Auto) [place] # Eos # Baso # Seg Neutrophils % Seg Neuts % (Manual) Lymphocytes % (Manual) Monocytes % (Manual) Eosinophils % (Manual) Nucleated RBC % Seg Neutrophils # Seg Neutrophils # Man Lymphocytes # (Manual) Monocytes # (Manual) Eosinophils # (Manual) APTT POC ABG pH ABG pH 7.463 H POC ABG pCO2 POC ABG pO2 ABG pO2 74.0 L ABG HCO3 29.4 H ABG O2 Saturation ABG Base Excess 5.2 H ABG Hemoglobin 10.0 L VBG pH Oxyhemoglobin 93.4 L Sodium Potassium Chloride Carbon Dioxide BUN Creatinine Glucose POC Glucose 209 H 138 H Lactic Acid Calcium Phosphorus Total Bilirubin AST ALT C-Reactive Protein Total Protein Albumin Triglycerides Amylase Lipase Urine WBC (Auto) Vancomycin Trough Crossmatch 01/06/18 01/06/18 01/06/18 03:14 05:30 05:30 WBC 12.6 H RBC 3.16 L Hgb 10.4 L Hct 31.7 L MCV 100 H MCH 33 H MCHC RDW 15.5 H Plt Count Lymph % (Auto) [place] % (Auto) Eos % (Auto) [place] # Eos # Baso # Seg Neutrophils % Seg Neuts % (Manual) 72.0 H Lymphocytes % (Manual) Monocytes % (Manual) 9.0 H Eosinophils % (Manual) Nucleated RBC % 1.0 H Seg Neutrophils # Seg Neutrophils # Man 9.1 H Lymphocytes # (Manual) Monocytes # (Manual) 1.1 H Eosinophils # (Manual) APTT POC ABG pH ABG pH POC ABG pCO2 POC ABG pO2 ABG pO2 ABG HCO3 28.8 H ABG O2 Saturation ABG Base Excess 4.2 H ABG Hemoglobin 9.3 L VBG pH Oxyhemoglobin 94.7 L Sodium 136 L Potassium Chloride 94.2 L Carbon Dioxide BUN Creatinine 0.4 L Glucose 146 H POC Glucose Lactic Acid Calcium Phosphorus Total Bilirubin AST ALT C-Reactive Protein Total Protein Albumin 3.1 L Triglycerides Amylase Lipase Urine WBC (Auto) Vancomycin Trough Crossmatch 01/06/18 01/06/18 01/06/18 05:42 10:00 14:40 WBC RBC Hgb Hct MCV MCH MCHC RDW Plt Count Lymph % (Auto) [place] % (Auto) Eos % (Auto) [place] # Eos # Baso # Seg Neutrophils % Seg Neuts % (Manual) Lymphocytes % (Manual) Monocytes % (Manual) Eosinophils % (Manual) Nucleated RBC % Seg Neutrophils # Seg Neutrophils # Man Lymphocytes # (Manual) Monocytes # (Manual) Eosinophils # (Manual) APTT POC ABG pH ABG pH POC ABG pCO2 POC ABG pO2 ABG pO2 ABG HCO3 ABG O2 Saturation ABG Base Excess ABG Hemoglobin VBG pH Oxyhemoglobin Sodium Potassium Chloride Carbon Dioxide BUN Creatinine Glucose POC Glucose 158 H 155 H 115 H Lactic Acid Calcium Phosphorus Total Bilirubin AST ALT C-Reactive Protein Total Protein Albumin Triglycerides Amylase Lipase Urine WBC (Auto) Vancomycin Trough Crossmatch 01/06/18 01/06/18 01/07/18 17:45 21:59 05:29 WBC RBC Hgb Hct MCV MCH MCHC RDW Plt Count Lymph % (Auto) [place] % (Auto) Eos % (Auto) [place] # Eos # Baso # Seg Neutrophils % Seg Neuts % (Manual) Lymphocytes % (Manual) Monocytes % (Manual) Eosinophils % (Manual) Nucleated RBC % Seg Neutrophils # Seg Neutrophils # Man Lymphocytes # (Manual) Monocytes # (Manual) Eosinophils # (Manual) APTT POC ABG pH ABG pH POC ABG pCO2 POC ABG pO2 ABG pO2 ABG HCO3 ABG O2 Saturation ABG Base Excess ABG Hemoglobin VBG pH Oxyhemoglobin Sodium Potassium Chloride Carbon Dioxide BUN Creatinine Glucose POC Glucose 156 H 177 H 179 H Lactic Acid Calcium Phosphorus Total Bilirubin AST ALT C-Reactive Protein Total Protein Albumin Triglycerides Amylase Lipase Urine WBC (Auto) Vancomycin Trough Crossmatch 0401/07/18 01/07/18 10:00 14:32 18:05 WBC RBC Hgb Hct MCV MCH MCHC RDW Plt Count Lymph % (Auto) [place] % (Auto) Eos % (Auto) [place] # Eos # Baso # Seg Neutrophils % Seg Neuts % (Manual) Lymphocytes % (Manual) Monocytes % (Manual) Eosinophils % (Manual) Nucleated RBC % Seg Neutrophils # Seg Neutrophils # Man Lymphocytes # (Manual) Monocytes # (Manual) Eosinophils # (Manual) APTT POC ABG pH ABG pH POC ABG pCO2 POC ABG pO2 ABG pO2 ABG HCO3 ABG O2 Saturation ABG Base Excess ABG Hemoglobin VBG pH Oxyhemoglobin Sodium Potassium Chloride Carbon Dioxide BUN Creatinine Glucose POC Glucose 131 H 177 H 143 H Lactic Acid Calcium Phosphorus Total Bilirubin AST ALT C-Reactive Protein Total Protein Albumin Triglycerides Amylase Lipase Urine WBC (Auto) Vancomycin Trough Crossmatch 01/07/18 01/08/18 01/08/18 22:11 02:26 05:37 WBC RBC Hgb Hct MCV MCH MCHC RDW Plt Count Lymph % (Auto) [place] % (Auto) Eos % (Auto) [place] # Eos # Baso # Seg Neutrophils % Seg Neuts % (Manual) Lymphocytes % (Manual) Monocytes % (Manual) Eosinophils % (Manual) Nucleated RBC % Seg Neutrophils # Seg Neutrophils # Man Lymphocytes # (Manual) Monocytes # (Manual) Eosinophils # (Manual) APTT POC ABG pH ABG pH POC ABG pCO2 POC ABG pO2 ABG pO2 ABG HCO3 ABG O2 Saturation ABG Base Excess ABG Hemoglobin VBG pH Oxyhemoglobin Sodium Potassium Chloride Carbon Dioxide BUN Creatinine Glucose POC Glucose 133 H 194 H 106 H Lactic Acid Calcium Phosphorus Total Bilirubin AST ALT C-Reactive Protein Total Protein Albumin Triglycerides Amylase Lipase Urine WBC (Auto) Vancomycin Trough Crossmatch 01/08/18 01/08/18 01/08/18 09:41 10:45 10:45 WBC 11.6 H RBC 3.21 L Hgb 10.5 L Hct 32.0 L MCV 100 H MCH 33 H MCHC RDW 15.7 H Plt Count Lymph % (Auto) [place] % (Auto) Eos % (Auto) [place] # Eos # Baso # Seg Neutrophils % Seg Neuts % (Manual) Lymphocytes % (Manual) Monocytes % (Manual) Eosinophils % (Manual) Nucleated RBC % Seg Neutrophils # Seg Neutrophils # Man Lymphocytes # (Manual) Monocytes # (Manual) Eosinophils # (Manual) APTT POC ABG pH ABG pH POC ABG pCO2 POC ABG pO2 ABG pO2 ABG HCO3 ABG O2 Saturation ABG Base Excess ABG Hemoglobin VBG pH Oxyhemoglobin Sodium Potassium Chloride 96.4 L Carbon Dioxide BUN Creatinine 0.4 L Glucose 146 H POC Glucose 142 H Lactic Acid Calcium Phosphorus Total Bilirubin AST ALT C-Reactive Protein Total Protein Albumin Triglycerides Amylase Lipase Urine WBC (Auto) Vancomycin Trough Crossmatch 01/08/18 01/08/18 01/08/18 14:31 17:20 21:46 WBC RBC Hgb Hct MCV MCH MCHC RDW Plt Count Lymph % (Auto) [place] % (Auto) Eos % (Auto) [place] # Eos # Baso # Seg Neutrophils % Seg Neuts % (Manual) Lymphocytes % (Manual) Monocytes % (Manual) Eosinophils % (Manual) Nucleated RBC % Seg Neutrophils # Seg Neutrophils # Man Lymphocytes # (Manual) Monocytes # (Manual) Eosinophils # (Manual) APTT POC ABG pH ABG pH POC ABG pCO2 POC ABG pO2 ABG pO2 ABG HCO3 ABG O2 Saturation ABG Base Excess ABG Hemoglobin VBG pH Oxyhemoglobin Sodium Potassium Chloride Carbon Dioxide BUN Creatinine Glucose POC Glucose 158 H 160 H 166 H Lactic Acid Calcium Phosphorus Total Bilirubin AST ALT C-Reactive Protein Total Protein Albumin Triglycerides Amylase Lipase Urine WBC (Auto) Vancomycin Trough Crossmatch 01/09/18 01/09/18 01/09/18 02:01 04:30 04:30 WBC RBC 3.21 L Hgb 10.9 L Hct 31.7 L MCV 99 H MCH 34 H MCHC RDW 15.8 H Plt Count Lymph % (Auto) [place] % (Auto) Eos % (Auto) [place] # Eos # Baso # Seg Neutrophils % Seg Neuts % (Manual) Lymphocytes % (Manual) Monocytes % (Manual) Eosinophils % (Manual) Nucleated RBC % Seg Neutrophils # Seg Neutrophils # Man Lymphocytes # (Manual) Monocytes # (Manual) Eosinophils # (Manual) APTT POC ABG pH ABG pH POC ABG pCO2 POC ABG pO2 ABG pO2 ABG HCO3 ABG O2 Saturation ABG Base Excess ABG Hemoglobin VBG pH Oxyhemoglobin Sodium 135 L Potassium Chloride 93.8 L Carbon Dioxide BUN Creatinine 0.5 L Glucose 137 H POC Glucose 155 H Lactic Acid Calcium Phosphorus Total Bilirubin AST ALT C-Reactive Protein Total Protein Albumin Triglycerides Amylase Lipase Urine WBC (Auto) Vancomycin Trough Crossmatch 01/09/18 01/09/18 01/09/18 05:42 10:41 14:01 WBC RBC Hgb Hct MCV MCH MCHC RDW Plt Count Lymph % (Auto) [place] % (Auto) Eos % (Auto) [place] # Eos # Baso # Seg Neutrophils % Seg Neuts % (Manual) Lymphocytes % (Manual) Monocytes % (Manual) Eosinophils % (Manual) Nucleated RBC % Seg Neutrophils # Seg Neutrophils # Man Lymphocytes # (Manual) Monocytes # (Manual) Eosinophils # (Manual) APTT POC ABG pH ABG pH POC ABG pCO2 POC ABG pO2 ABG pO2 ABG HCO3 ABG O2 Saturation ABG Base Excess ABG Hemoglobin VBG pH Oxyhemoglobin Sodium Potassium Chloride Carbon Dioxide BUN Creatinine Glucose POC Glucose 142 H 187 H 138 H Lactic Acid Calcium Phosphorus Total Bilirubin AST ALT C-Reactive Protein Total Protein Albumin Triglycerides Amylase Lipase Urine WBC (Auto) Vancomycin Trough Crossmatch 01/09/18 01/09/18 01/10/18 18:09 21:09 02:06 WBC RBC Hgb Hct MCV MCH MCHC RDW Plt Count Lymph % (Auto) [place] % (Auto) Eos % (Auto) [place] # Eos # Baso # Seg Neutrophils % Seg Neuts % (Manual) Lymphocytes % (Manual) Monocytes % (Manual) Eosinophils % (Manual) Nucleated RBC % Seg Neutrophils # Seg Neutrophils # Man Lymphocytes # (Manual) Monocytes # (Manual) Eosinophils # (Manual) APTT POC ABG pH ABG pH POC ABG pCO2 POC ABG pO2 ABG pO2 ABG HCO3 ABG O2 Saturation ABG Base Excess ABG Hemoglobin VBG pH Oxyhemoglobin Sodium Potassium Chloride Carbon Dioxide BUN Creatinine Glucose POC Glucose 143 H 188 H 160 H Lactic Acid Calcium Phosphorus Total Bilirubin AST ALT C-Reactive Protein Total Protein Albumin Triglycerides Amylase Lipase Urine WBC (Auto) Vancomycin Trough Crossmatch 01/10/18 01/10/18 01/10/18 05:58 09:54 13:58 WBC RBC Hgb Hct MCV MCH MCHC RDW Plt Count Lymph % (Auto) [place] % (Auto) Eos % (Auto) [place] # Eos # Baso # Seg Neutrophils % Seg Neuts % (Manual) Lymphocytes % (Manual) Monocytes % (Manual) Eosinophils % (Manual) Nucleated RBC % Seg Neutrophils # Seg Neutrophils # Man Lymphocytes # (Manual) Monocytes # (Manual) Eosinophils # (Manual) APTT POC ABG pH ABG pH POC ABG pCO2 POC ABG pO2 ABG pO2 ABG HCO3 ABG O2 Saturation ABG Base Excess ABG Hemoglobin VBG pH Oxyhemoglobin Sodium Potassium Chloride Carbon Dioxide BUN Creatinine Glucose POC Glucose 134 H 162 H 152 H Lactic Acid Calcium Phosphorus Total Bilirubin AST ALT C-Reactive Protein Total Protein Albumin Triglycerides Amylase Lipase Urine WBC (Auto) Vancomycin Trough Crossmatch 01/10/18 01/10/18 01/11/18 16:56 21:57 02:22 WBC RBC Hgb Hct MCV MCH MCHC RDW Plt Count Lymph % (Auto) [place] % (Auto) Eos % (Auto) [place] # Eos # Baso # Seg Neutrophils % Seg Neuts % (Manual) Lymphocytes % (Manual) Monocytes % (Manual) Eosinophils % (Manual) Nucleated RBC % Seg Neutrophils # Seg Neutrophils # Man Lymphocytes # (Manual) Monocytes # (Manual) Eosinophils # (Manual) APTT POC ABG pH ABG pH POC ABG pCO2 POC ABG pO2 ABG pO2 ABG HCO3 ABG O2 Saturation ABG Base Excess ABG Hemoglobin VBG pH Oxyhemoglobin Sodium Potassium Chloride Carbon Dioxide BUN Creatinine Glucose POC Glucose 161 H 161 H 159 H Lactic Acid Calcium Phosphorus Total Bilirubin AST ALT C-Reactive Protein Total Protein Albumin Triglycerides Amylase Lipase Urine WBC (Auto) Vancomycin Trough Crossmatch 01/11/18 01/11/18 01/11/18 06:19 10:23 11:21 WBC 12.7 H RBC 3.50 L Hgb 11.5 L Hct 34.8 L MCV 99 H MCH 33 H MCHC RDW Plt Count Lymph % (Auto) [place] % (Auto) Eos % (Auto) [place] # Eos # Baso # Seg Neutrophils % Seg Neuts % (Manual) Lymphocytes % (Manual) Monocytes % (Manual) Eosinophils % (Manual) Nucleated RBC % Seg Neutrophils # Seg Neutrophils # Man Lymphocytes # (Manual) Monocytes # (Manual) Eosinophils # (Manual) APTT POC ABG pH ABG pH POC ABG pCO2 POC ABG pO2 ABG pO2 ABG HCO3 ABG O2 Saturation ABG Base Excess ABG Hemoglobin VBG pH Oxyhemoglobin Sodium Potassium Chloride Carbon Dioxide BUN Creatinine Glucose POC Glucose 174 H 172 H Lactic Acid Calcium Phosphorus Total Bilirubin AST ALT C-Reactive Protein Total Protein Albumin Triglycerides Amylase Lipase Urine WBC (Auto) Vancomycin Trough Crossmatch 01/11/18 01/11/18 01/11/18 11:21 14:00 17:19 WBC RBC Hgb Hct MCV MCH MCHC RDW Plt Count Lymph % (Auto) [place] % (Auto) Eos % (Auto) [place] # Eos # Baso # Seg Neutrophils % Seg Neuts % (Manual) Lymphocytes % (Manual) Monocytes % (Manual) Eosinophils % (Manual) Nucleated RBC % Seg Neutrophils # Seg Neutrophils # Man Lymphocytes # (Manual) Monocytes # (Manual) Eosinophils # (Manual) APTT POC ABG pH ABG pH POC ABG pCO2 POC ABG pO2 ABG pO2 ABG HCO3 ABG O2 Saturation ABG Base Excess ABG Hemoglobin VBG pH Oxyhemoglobin Sodium 133 L Potassium Chloride 92.9 L Carbon Dioxide BUN Creatinine 0.4 L Glucose 156 H POC Glucose 152 H 177 H Lactic Acid Calcium Phosphorus Total Bilirubin AST ALT C-Reactive Protein Total Protein Albumin Triglycerides Amylase Lipase Urine WBC (Auto) Vancomycin Trough Crossmatch 01/11/18 01/12/18 01/12/18 22:20 02:09 05:50 WBC RBC Hgb Hct MCV MCH MCHC RDW Plt Count Lymph % (Auto) [place] % (Auto) Eos % (Auto) [place] # Eos # Baso # Seg Neutrophils % Seg Neuts % (Manual) Lymphocytes % (Manual) Monocytes % (Manual) Eosinophils % (Manual) Nucleated RBC % Seg Neutrophils # Seg Neutrophils # Man Lymphocytes # (Manual) Monocytes # (Manual) Eosinophils # (Manual) APTT POC ABG pH ABG pH POC ABG pCO2 POC ABG pO2 ABG pO2 ABG HCO3 ABG O2 Saturation ABG Base Excess ABG Hemoglobin VBG pH Oxyhemoglobin Sodium Potassium Chloride Carbon Dioxide BUN Creatinine Glucose POC Glucose 208 H 179 H 165 H Lactic Acid Calcium Phosphorus Total Bilirubin AST ALT C-Reactive Protein Total Protein Albumin Triglycerides Amylase Lipase Urine WBC (Auto) Vancomycin Trough Crossmatch 01/12/18 01/12/18 01/12/18 09:31 13:23 17:35 WBC RBC Hgb Hct MCV MCH MCHC RDW Plt Count Lymph % (Auto) [place] % (Auto) Eos % (Auto) [place] # Eos # Baso # Seg Neutrophils % Seg Neuts % (Manual) Lymphocytes % (Manual) Monocytes % (Manual) Eosinophils % (Manual) Nucleated RBC % Seg Neutrophils # Seg Neutrophils # Man Lymphocytes # (Manual) Monocytes # (Manual) Eosinophils # (Manual) APTT POC ABG pH ABG pH POC ABG pCO2 POC ABG pO2 ABG pO2 ABG HCO3 ABG O2 Saturation ABG Base Excess ABG Hemoglobin VBG pH Oxyhemoglobin Sodium Potassium Chloride Carbon Dioxide BUN Creatinine Glucose POC Glucose 142 H 138 H 172 H Lactic Acid Calcium Phosphorus Total Bilirubin AST ALT C-Reactive Protein Total Protein Albumin Triglycerides Amylase Lipase Urine WBC (Auto) Vancomycin Trough Crossmatch 01/12/18 01/13/18 01/13/18 22:03 01:56 05:00 WBC RBC 3.50 L Hgb Hct 34.1 L MCV 98 H MCH 34 H MCHC 35 H RDW Plt Count Lymph % (Auto) [place] % (Auto) Eos % (Auto) [place] # Eos # Baso # Seg Neutrophils % Seg Neuts % (Manual) Lymphocytes % (Manual) Monocytes % (Manual) Eosinophils % (Manual) Nucleated RBC % Seg Neutrophils # Seg Neutrophils # Man Lymphocytes # (Manual) Monocytes # (Manual) Eosinophils # (Manual) APTT POC ABG pH ABG pH POC ABG pCO2 POC ABG pO2 ABG pO2 ABG HCO3 ABG O2 Saturation ABG Base Excess ABG Hemoglobin VBG pH Oxyhemoglobin Sodium Potassium Chloride Carbon Dioxide BUN Creatinine Glucose POC Glucose 166 H 129 H Lactic Acid Calcium Phosphorus Total Bilirubin AST ALT C-Reactive Protein Total Protein Albumin Triglycerides Amylase Lipase Urine WBC (Auto) Vancomycin Trough Crossmatch 01/13/18 01/13/18 01/13/18 05:00 05:06 09:44 WBC RBC Hgb Hct MCV MCH MCHC RDW Plt Count Lymph % (Auto) [place] % (Auto) Eos % (Auto) [place] # Eos # Baso # Seg Neutrophils % Seg Neuts % (Manual) Lymphocytes % (Manual) Monocytes % (Manual) Eosinophils % (Manual) Nucleated RBC % Seg Neutrophils # Seg Neutrophils # Man Lymphocytes # (Manual) Monocytes # (Manual) Eosinophils # (Manual) APTT POC ABG pH ABG pH POC ABG pCO2 POC ABG pO2 ABG pO2 ABG HCO3 ABG O2 Saturation ABG Base Excess ABG Hemoglobin VBG pH Oxyhemoglobin Sodium 136 L Potassium Chloride 95.5 L Carbon Dioxide BUN Creatinine 0.4 L Glucose 165 H POC Glucose 188 H 132 H Lactic Acid Calcium Phosphorus Total Bilirubin AST ALT C-Reactive Protein Total Protein Albumin Triglycerides Amylase Lipase Urine WBC (Auto) Vancomycin Trough Crossmatch 01/13/18 01/13/18 01/13/18 13:53 18:06 21:26 WBC RBC Hgb Hct MCV MCH MCHC RDW Plt Count Lymph % (Auto) [place] % (Auto) Eos % (Auto) [place] # Eos # Baso # Seg Neutrophils % Seg Neuts % (Manual) Lymphocytes % (Manual) Monocytes % (Manual) Eosinophils % (Manual) Nucleated RBC % Seg Neutrophils # Seg Neutrophils # Man Lymphocytes # (Manual) Monocytes # (Manual) Eosinophils # (Manual) APTT POC ABG pH ABG pH POC ABG pCO2 POC ABG pO2 ABG pO2 ABG HCO3 ABG O2 Saturation ABG Base Excess ABG Hemoglobin VBG pH Oxyhemoglobin Sodium Potassium Chloride Carbon Dioxide BUN Creatinine Glucose POC Glucose 137 H 142 H 129 H Lactic Acid Calcium Phosphorus Total Bilirubin AST ALT C-Reactive Protein Total Protein Albumin Triglycerides Amylase Lipase Urine WBC (Auto) Vancomycin Trough Crossmatch 01/14/18 01/14/18 01/14/18 04:30 04:30 05:31 WBC 16.5 H RBC 3.55 L Hgb 11.7 L Hct 35.1 L MCV 99 H MCH 33 H MCHC RDW 15.4 H Plt Count Lymph % (Auto) [place] % (Auto) Eos % (Auto) [place] # Eos # Baso # Seg Neutrophils % Seg Neuts % (Manual) Lymphocytes % (Manual) Monocytes % (Manual) Eosinophils % (Manual) Nucleated RBC % Seg Neutrophils # Seg Neutrophils # Man Lymphocytes # (Manual) Monocytes # (Manual) Eosinophils # (Manual) APTT POC ABG pH ABG pH POC ABG pCO2 POC ABG pO2 ABG pO2 ABG HCO3 ABG O2 Saturation ABG Base Excess ABG Hemoglobin VBG pH Oxyhemoglobin Sodium Potassium Chloride 93.8 L Carbon Dioxide BUN Creatinine 0.5 L Glucose POC Glucose 119 H Lactic Acid Calcium Phosphorus Total Bilirubin AST ALT C-Reactive Protein Total Protein Albumin Triglycerides Amylase Lipase Urine WBC (Auto) Vancomycin Trough Crossmatch 01/14/18 01/14/18 01/14/18 10:08 17:27 22:07 WBC RBC Hgb Hct MCV MCH MCHC RDW Plt Count Lymph % (Auto) [place] % (Auto) Eos % (Auto) [place] # Eos # Baso # Seg Neutrophils % Seg Neuts % (Manual) Lymphocytes % (Manual) Monocytes % (Manual) Eosinophils % (Manual) Nucleated RBC % Seg Neutrophils # Seg Neutrophils # Man Lymphocytes # (Manual) Monocytes # (Manual) Eosinophils # (Manual) APTT POC ABG pH ABG pH POC ABG pCO2 POC ABG pO2 ABG pO2 ABG HCO3 ABG O2 Saturation ABG Base Excess ABG Hemoglobin VBG pH Oxyhemoglobin Sodium Potassium Chloride Carbon Dioxide BUN Creatinine Glucose POC Glucose 119 H 113 H 138 H Lactic Acid Calcium Phosphorus Total Bilirubin AST ALT C-Reactive Protein Total Protein Albumin Triglycerides Amylase Lipase Urine WBC (Auto) Vancomycin Trough Crossmatch 01/15/18 01/15/18 01/15/18 02:12 05:36 08:02 WBC 12.8 H RBC 3.41 L Hgb 11.1 L Hct 33.6 L MCV 99 H MCH 33 H MCHC RDW Plt Count Lymph % (Auto) [place] % (Auto) 7.8 H Eos % (Auto) [place] # 1.0 H Eos # Baso # Seg Neutrophils % 72.8 H Seg Neuts % (Manual) Lymphocytes % (Manual) Monocytes % (Manual) Eosinophils % (Manual) Nucleated RBC % Seg Neutrophils # 9.3 H Seg Neutrophils # Man Lymphocytes # (Manual) Monocytes # (Manual) Eosinophils # (Manual) APTT POC ABG pH ABG pH POC ABG pCO2 POC ABG pO2 ABG pO2 ABG HCO3 ABG O2 Saturation ABG Base Excess ABG Hemoglobin VBG pH Oxyhemoglobin Sodium Potassium Chloride Carbon Dioxide BUN Creatinine Glucose POC Glucose 147 H 138 H Lactic Acid Calcium Phosphorus Total Bilirubin AST ALT C-Reactive Protein Total Protein Albumin Triglycerides Amylase Lipase Urine WBC (Auto) Vancomycin Trough Crossmatch 01/15/18 01/15/18 01/15/18 08:02 10:05 12:06 WBC RBC Hgb Hct MCV MCH MCHC RDW Plt Count Lymph % (Auto) [place] % (Auto) Eos % (Auto) [place] # Eos # Baso # Seg Neutrophils % Seg Neuts % (Manual) Lymphocytes % (Manual) Monocytes % (Manual) Eosinophils % (Manual) Nucleated RBC % Seg Neutrophils # Seg Neutrophils # Man Lymphocytes # (Manual) Monocytes # (Manual) Eosinophils # (Manual) APTT POC ABG pH ABG pH POC ABG pCO2 POC ABG pO2 ABG pO2 ABG HCO3 ABG O2 Saturation ABG Base Excess ABG Hemoglobin VBG pH Oxyhemoglobin Sodium 136 L Potassium Chloride 94.9 L Carbon Dioxide BUN Creatinine 0.4 L Glucose 142 H POC Glucose 136 H 133 H Lactic Acid Calcium Phosphorus Total Bilirubin AST ALT C-Reactive Protein Total Protein Albumin Triglycerides Amylase Lipase Urine WBC (Auto) Vancomycin Trough Crossmatch 01/15/18 01/15/18 01/16/18 14:16 21:59 01:58 WBC RBC Hgb Hct MCV MCH MCHC RDW Plt Count Lymph % (Auto) [place] % (Auto) Eos % (Auto) [place] # Eos # Baso # Seg Neutrophils % Seg Neuts % (Manual) Lymphocytes % (Manual) Monocytes % (Manual) Eosinophils % (Manual) Nucleated RBC % Seg Neutrophils # Seg Neutrophils # Man Lymphocytes # (Manual) Monocytes # (Manual) Eosinophils # (Manual) APTT POC ABG pH ABG pH POC ABG pCO2 POC ABG pO2 ABG pO2 ABG HCO3 ABG O2 Saturation ABG Base Excess ABG Hemoglobin VBG pH Oxyhemoglobin Sodium Potassium Chloride Carbon Dioxide BUN Creatinine Glucose POC Glucose 123 H 134 H 143 H Lactic Acid Calcium Phosphorus Total Bilirubin AST ALT C-Reactive Protein Total Protein Albumin Triglycerides Amylase Lipase Urine WBC (Auto) Vancomycin Trough Crossmatch 01/16/18 01/16/18 01/16/18 05:29 10:13 14:04 WBC RBC Hgb Hct MCV MCH MCHC RDW Plt Count Lymph % (Auto) [place] % (Auto) Eos % (Auto) [place] # Eos # Baso # Seg Neutrophils % Seg Neuts % (Manual) Lymphocytes % (Manual) Monocytes % (Manual) Eosinophils % (Manual) Nucleated RBC % Seg Neutrophils # Seg Neutrophils # Man Lymphocytes # (Manual) Monocytes # (Manual) Eosinophils # (Manual) APTT POC ABG pH ABG pH POC ABG pCO2 POC ABG pO2 ABG pO2 ABG HCO3 ABG O2 Saturation ABG Base Excess ABG Hemoglobin VBG pH Oxyhemoglobin Sodium Potassium Chloride Carbon Dioxide BUN Creatinine Glucose POC Glucose 145 H 117 H 139 H Lactic Acid Calcium Phosphorus Total Bilirubin AST ALT C-Reactive Protein Total Protein Albumin Triglycerides Amylase Lipase Urine WBC (Auto) Vancomycin Trough Crossmatch 01/16/18 01/16/18 01/17/18 17:39 23:13 02:57 WBC RBC Hgb Hct MCV MCH MCHC RDW Plt Count Lymph % (Auto) [place] % (Auto) Eos % (Auto) [place] # Eos # Baso # Seg Neutrophils % Seg Neuts % (Manual) Lymphocytes % (Manual) Monocytes % (Manual) Eosinophils % (Manual) Nucleated RBC % Seg Neutrophils # Seg Neutrophils # Man Lymphocytes # (Manual) Monocytes # (Manual) Eosinophils # (Manual) APTT POC ABG pH ABG pH POC ABG pCO2 POC ABG pO2 ABG pO2 ABG HCO3 ABG O2 Saturation ABG Base Excess ABG Hemoglobin VBG pH Oxyhemoglobin Sodium Potassium Chloride Carbon Dioxide BUN Creatinine Glucose POC Glucose 138 H 142 H 125 H Lactic Acid Calcium Phosphorus Total Bilirubin AST ALT C-Reactive Protein Total Protein Albumin Triglycerides Amylase Lipase Urine WBC (Auto) Vancomycin Trough Crossmatch 01/17/18 01/17/18 01/17/18 06:48 07:00 07:00 WBC 13.2 H RBC 3.52 L Hgb 11.5 L Hct 35.0 L MCV 99 H MCH 33 H MCHC RDW Plt Count Lymph % (Auto) [place] % (Auto) 8.3 H Eos % (Auto) [place] # 1.1 H Eos # Baso # Seg Neutrophils % 70.2 H Seg Neuts % (Manual) Lymphocytes % (Manual) Monocytes % (Manual) Eosinophils % (Manual) Nucleated RBC % Seg Neutrophils # 9.2 H Seg Neutrophils # Man Lymphocytes # (Manual) Monocytes # (Manual) Eosinophils # (Manual) APTT POC ABG pH ABG pH POC ABG pCO2 POC ABG pO2 ABG pO2 ABG HCO3 ABG O2 Saturation ABG Base Excess ABG Hemoglobin VBG pH Oxyhemoglobin Sodium Potassium Chloride 95.5 L Carbon Dioxide BUN Creatinine 0.4 L Glucose 138 H POC Glucose 111 H Lactic Acid Calcium Phosphorus Total Bilirubin AST ALT C-Reactive Protein Total Protein Albumin Triglycerides Amylase Lipase Urine WBC (Auto) Vancomycin Trough Crossmatch Chest x-ray: report reviewed, image reviewed
--- NOTE | 2018-01-17 17:14 | Progress Note ---
Assessment and Plan Acute hypoxic respiratory failure - suspected due to ARDS/aspiration pneumonia: - pulmonary following and required prolong intubation - s/p extubated on 01/15, cont frequent suction, nebs, Suspected ARDS: - Pulmonology is following, off vent now - CXR showing improvement Sepsis, Etiology most likely complicated H influenza bacteremia +/- pneumonia: - treated with IV antibiotics, - ID signed off, appreciate recommendation Alcohol abuse: cont thiamine, folate, taper librium Hypotension resolved with ivfs and iv steroids Thrombocytopenia, - severe most likely due to sepsis: now stable Hypernatremia - improved with free water with TF and hypotonic iv fluid hypokalemia, replaced DM type 2- cont long acting and SSI, lentus to 26 unit daily Moderate to Severe protein calorie malnutrition; nutrition supplements, tube feeding. will start on oral diet after speech eval Anemia; s/p 1 Unit PRBC this admission. DVT prophylaxis: scd and lovenox Disposition: Home with family support Brief History: Patient is a 47 yo man with a history of tobacco dependency, alcohol abuse, dm type 2, hypertension and asthma who presented to [facility] ED with SOB and found to be severely hypoxic, failed bipap and was intubated. There is report of n/v during and after intubation. Hospitalist Physical GEN: no distress, HEENT: NCAT, pupils react, NG tube in place NECK: supple, CVS/HEART:regular, NORMAL S1S2, pulses present bilaterally CHEST/LUNGS: Symmetrical chest expansion, coarse BS bilaterally GI/Abdomen: soft, distended, good bowel sounds, no guarding or rebound EXT/Skin: no edema MSK: no joint effusion or tenderness Neuro: eyes wide open, follow commend, speaks fluently Psych: cooperative Subjective Date of service: 01/17/18 Principal diagnosis: ARDS,Respiratory failure,pneumonia Interval history: Pt seen and examined extubated 01/15/18 Still on tube feeding, pending speech eval cont to monitor at telemetry Objective - Constitutional Vitals: Vital Signs - 12hr 01/17/18 01/17/18 01/17/18 07:20 07:32 07:42 Temperature 97.8 F Pulse Rate 98 H Pulse Rate [ 96 H 99 H Anterior Bilateral Throughout] Pulse Rate [ Radial] Respiratory 20 Rate Respiratory 20 20 Rate [Anterior Bilateral Throughout] Blood Pressure Blood Pressure 107/73 [Left] O2 Sat by Pulse 96 98 Oximetry 01/17/18 01/17/18 01/17/18 12:07 13:02 13:12 Temperature 98.8 F Pulse Rate Pulse Rate [ 90 97 H Anterior Bilateral Throughout] Pulse Rate [ 100 H Radial] Respiratory 20 Rate Respiratory 20 20 Rate [Anterior Bilateral Throughout] Blood Pressure 120/85 Blood Pressure [Left] O2 Sat by Pulse Oximetry 01/17/18 15:40 Temperature 98.5 F Pulse Rate Pulse Rate [ Anterior Bilateral Throughout] Pulse Rate [ 97 H Radial] Respiratory 18 Rate Respiratory Rate [Anterior Bilateral Throughout] Blood Pressure 113/80 Blood Pressure [Left] O2 Sat by Pulse Oximetry - Labs CBC & Chem 7: 01/17/18 07:00 01/17/18 07:00 Labs: Abnormal lab results 01/16/18 01/16/18 01/16/18 Range/Units 14:04 17:39 23:13 WBC (4.5-11.0) K/mm3 RBC (3.65-5.03) M/mm3 Hgb (11.8-15.2) gm/dl Hct (35.5-45.6) % MCV (84-94) fl MCH (28-32) pg [place] % (Auto) (0.0-7.3) % [place] # (0.0-0.8) K/mm3 Seg Neutrophils % (40.0-70.0) % Seg Neutrophils # (1.8-7.7) K/mm3 Chloride (98-107) mmol/L Creatinine (0.8-1.5) mg/dL Glucose (75-100) mg/dL POC Glucose 139 H 138 H 142 H (70-105) 01/17/18 01/17/18 01/17/18 Range/Units 02:57 06:48 07:00 WBC 13.2 H (4.5-11.0) K/mm3 RBC 3.52 L (3.65-5.03) M/mm3 Hgb 11.5 L (11.8-15.2) gm/dl Hct 35.0 L (35.5-45.6) % MCV 99 H (84-94) fl MCH 33 H (28-32) pg [place] % (Auto) 8.3 H (0.0-7.3) % [place] # 1.1 H (0.0-0.8) K/mm3 Seg Neutrophils % 70.2 H (40.0-70.0) % Seg Neutrophils # 9.2 H (1.8-7.7) K/mm3 Chloride (98-107) mmol/L Creatinine (0.8-1.5) mg/dL Glucose (75-100) mg/dL POC Glucose 125 H 111 H (70-105) 01/17/18 01/17/18 01/17/18 Range/Units 07:00 12:54 16:30 WBC (4.5-11.0) K/mm3 RBC (3.65-5.03) M/mm3 Hgb (11.8-15.2) gm/dl Hct (35.5-45.6) % MCV (84-94) fl MCH (28-32) pg [place] % (Auto) (0.0-7.3) % [place] # (0.0-0.8) K/mm3 Seg Neutrophils % (40.0-70.0) % Seg Neutrophils # (1.8-7.7) K/mm3 Chloride 95.5 L (98-107) mmol/L Creatinine 0.4 L (0.8-1.5) mg/dL Glucose 138 H (75-100) mg/dL POC Glucose 164 H 151 H (70-105)
[2018-01-17] MEDS: LOVENOX SUB-Q SCH (23:31)
[2018-01-18] MEDS: LIBRIUM PO SCH ×3 (00:51→16:23)
[2018-01-18] MEDS: HumaLOG SUB-Q SCH ×6 (02:55→22:07)
[2018-01-18] MEDS: DUONEB *Not for PRN Use IH SCH ×3 (08:04→21:11)
[2018-01-18] MEDS: PEPCID PO SCH ×2 (09:27→21:13)
[2018-01-18] MEDS: FOLVITE FEEDTUBE SCH (09:28)
[2018-01-18] MEDS: POTASSIUM CHLORIDE PO SCH (09:28)
[2018-01-18] MEDS: LOPRESSOR PO SCH ×2 (09:28→21:29)
[2018-01-18] MEDS: VITAMIN B-1 PO SCH (09:28)
[2018-01-18] MEDS: LANTUS SUB-Q SCH (09:29)
[2018-01-18] MEDS: SODIUM CHLORIDE FLUSH SYRINGE 10 ML IV SCH ×2 (09:31→21:30)
[2018-01-18] MEDS ORDERED: HALDOL IM ONE (14:00)
--- NOTE | 2018-01-18 14:08 | Progress Note ---
Assessment and Plan Imp: 1. Haemophilus influenza pneumonia and bacteremia 2. Severe sepsis 3. ARDS 4. Acute respiratory failure, hypoxia 5. Hypernatremia Rec: 1. DVT and GI PPx, TFs 2. Finished ABX 3. HOB elevated/aspiration precautions; NPO until cleared by ST (asked to not give him any more water until cleared by ST, she understands) 4. PO/OT -> await eval. 5. Stable pulm-reeves Plan of care reviewed w/ patient/, they understand/agree Subjective Date of service: 01/18/18 Principal diagnosis: ARDS,Respiratory failure,pneumonia Interval history: No events. Cough better. SOB stable. No new complaints. Active Medications Acetaminophen (Tylenol) 650 mg PO Q6H PRN PRN Reason: Pain, Mild (1-3),temp 100.5or> Last Admin: 01/16/18 13:57 Dose: 650 mg Acetaminophen (Tylenol) 650 mg ID Q4H PRN PRN Reason: Pain, Mild (1-3) Albuterol (Proventil) 2.5 mg IH Q4HRT PRN PRN Reason: Shortness Of Breath Last Admin: 12/13/17 03:01 Dose: 2.5 mg Albuterol/Ipratropium (Duoneb *Not For Prn Use*) 1 ampul IH TIDRT [facility] Last Admin: 01/18/18 13:51 Dose: 1 ampul Lipase/Protease/Amylase (Pancreaze Dr 10,500 Unit) 1 each FEEDTUBE PRN PRN PRN Reason: For Clogged Feeding Tube Chlordiazepoxide HCl (Librium) 50 mg PO Q8H [facility] Last Admin: 01/18/18 09:28 Dose: 50 mg Dextrose (D50w (25gm) Syringe) 50 ml IV PRN PRN PRN Reason: Hypoglycemia Enoxaparin Sodium (Lovenox) 40 mg SUB-Q QDAY@2200 [facility] Last Admin: 01/17/18 23:31 Dose: 40 mg Famotidine (Pepcid) 20 mg PO BID [facility] Last Admin: 01/18/18 09:27 Dose: 20 mg Folic Acid (Folvite) 1 mg FEEDTUBE QDAY [facility] Last Admin: 01/18/18 09:28 Dose: 1 mg Hydralazine HCl (Apresoline) 10 mg IV Q4HR PRN PRN Reason: SBP>170 Last Admin: 12/27/17 10:10 Dose: 10 mg Hydrophilic Ointment (Vaseline Lip Therapy) 1 applic TP DIRECT PRN PRN Reason: DRY LIPS Last Admin: 12/31/17 02:08 Dose: 1 applic Insulin Glargine (Lantus) 26 units SUB-Q DAILY [facility] Last Admin: 01/18/18 09:29 Dose: 26 units Insulin Human Lispro (Humalog) 0 unit SUB-Q Q4H [facility]; Protocol Last Admin: 01/18/18 13:34 Dose: Not Given Labetalol HCl (Normodyne) 20 mg IV Q6H PRN PRN Reason: Blood Pressure Metoprolol Tartrate (Lopressor) 50 mg PO BID [facility] Last Admin: 01/18/18 09:28 Dose: 50 mg Multi-Ingred Cream/Lotion/Oil/Oint (Artificial Tears Ophth Oint) 1 applic OU Q4HR PRN PRN Reason: Dry Eye(s) Ondansetron HCl (Zofran) 4 mg IV Q8H PRN PRN Reason: Nausea And Vomiting Last Admin: 01/01/18 04:20 Dose: 4 mg Potassium Chloride (Potassium Chloride) 20 meq PO QDAY [facility] Last Admin: 01/18/18 09:28 Dose: 20 meq Senna/Docusate Sodium (Senokot S) 2 tab PO BID PRN PRN Reason: Laxative Effect Simple Syrup (Simple Syrup) 15 ml FEEDTUBE PRN PRN PRN Reason: Hypoglycemia Last Admin: 12/31/17 02:07 Dose: 15 ml Simple Syrup (Simple Syrup) 30 ml FEEDTUBE PRN PRN PRN Reason: Hypoglycemia Sodium Bicarbonate (Sodium Bicarbonate) 325 mg FEEDTUBE PRN PRN PRN Reason: For Clogged Feeding Tube Sodium Chloride (Sodium Chloride Flush Syringe 10 Ml) 10 ml IV BID [facility] Last Admin: 01/18/18 09:31 Dose: 10 ml Sodium Chloride (Sodium Chloride Flush Syringe 10 Ml) 10 ml IV PRN PRN PRN Reason: LINE FLUSH Last Admin: 01/14/18 04:20 Dose: 10 ml Thiamine HCl (Vitamin B-1) 100 mg PO QDAY [facility] Last Admin: 01/18/18 09:28 Dose: 100 mg Objective Vital Signs - 12hr 01/18/18 01/18/18 01/18/18 05:50 07:40 09:28 Temperature 97.7 F 98.2 F Pulse Rate 104 H 97 H 98 H Respiratory 20 20 Rate Blood Pressure 120/80 122/85 122/85 O2 Sat by Pulse 98 97 Oximetry 01/18/18 11:46 Temperature 98.6 F Pulse Rate 89 Respiratory 20 Rate Blood Pressure 112/76 O2 Sat by Pulse 97 Oximetry Constitutional: no acute distress, alert Eyes: non-icteric ENT: oropharynx moist Neck: supple Effort: normal (unlabored) Ascultation: Bilateral: rhonchi (sporadic) Cardiovascular: regular rate and rhythm (no mrg) Gastrointestinal: normoactive bowel sounds, soft, non-tender, non-distended Integumentary: normal Extremities: no cyanosis, no edema, pink and warm, no ischemia or petechiae Neurologic: normal mental status, non-focal exam, pupils equal and round, CN II- XII normal Psychiatric: mood appropriate, affect normal CBC and BMP: 01/17/18 07:00 01/17/18 07:00 ABG, PT/INR, D-dimer: ABG POC ABG pH 7.503 (7.35-7.45) H 12/25/17 03:38 ABG pH 7.441 pH Units (7.350-7.450) 01/06/18 03:14 POC ABG pCO2 35.8 (35-45) 12/25/17 03:38 ABG pCO2 43.2 mm Hg 01/06/18 03:14 POC ABG pO2 66 (80-105) L 12/25/17 03:38 ABG pO2 84.9 mm Hg (80.0-90.0) 01/06/18 03:14 POC ABG HCO3 28.1 12/25/17 03:38 POC ABG Total CO2 29 12/25/17 03:38 POC ABG O2 Sat 95 12/25/17 03:38 ABG O2 Saturation 97.0 % (95.0-99.0) 01/06/18 03:14 PT/INR, D-dimer PT 14.9 Sec. (12.2-14.9) 12/15/17 04:05 INR 1.11 (0.87-1.13) 12/15/17 04:05 Abnormal lab findings: Abnormal Labs 12/12/17 12/12/17 12/12/17 18:57 19:02 19:02 WBC RBC Hgb Hct MCV 96 H MCH 34 H MCHC 35 H RDW Plt Count 46 L Lymph % (Auto) [place] % (Auto) Eos % (Auto) [place] # Eos # Baso # Seg Neutrophils % Seg Neuts % (Manual) 77.0 H Lymphocytes % (Manual) 13.0 L Monocytes % (Manual) Eosinophils % (Manual) Nucleated RBC % Seg Neutrophils # Seg Neutrophils # Man Lymphocytes # (Manual) 0.9 L Monocytes # (Manual) Eosinophils # (Manual) APTT POC ABG pH ABG pH POC ABG pCO2 POC ABG pO2 ABG pO2 ABG HCO3 ABG O2 Saturation ABG Base Excess ABG Hemoglobin VBG pH Oxyhemoglobin Sodium Potassium Chloride Carbon Dioxide BUN Creatinine Glucose POC Glucose 321 H Lactic Acid 4.00 H* Calcium Phosphorus Total Bilirubin AST ALT C-Reactive Protein Total Protein Albumin Triglycerides Amylase Lipase Urine WBC (Auto) Vancomycin Trough Crossmatch 12/12/17 12/12/17 12/12/17 19:02 19:18 20:55 WBC RBC Hgb Hct MCV MCH MCHC RDW Plt Count Lymph % (Auto) [place] % (Auto) Eos % (Auto) [place] # Eos # Baso # Seg Neutrophils % Seg Neuts % (Manual) Lymphocytes % (Manual) Monocytes % (Manual) Eosinophils % (Manual) Nucleated RBC % Seg Neutrophils # Seg Neutrophils # Man Lymphocytes # (Manual) Monocytes # (Manual) Eosinophils # (Manual) APTT POC ABG pH ABG pH POC ABG pCO2 POC ABG pO2 ABG pO2 ABG HCO3 ABG O2 Saturation ABG Base Excess ABG Hemoglobin VBG pH 7.472 H Oxyhemoglobin Sodium 124 L Potassium Chloride 80.0 L Carbon Dioxide 20 L BUN Creatinine Glucose 382 H POC Glucose 283 H Lactic Acid Calcium 8.1 L Phosphorus Total Bilirubin 4.60 H AST 93 H ALT 112 H C-Reactive Protein Total Protein Albumin 2.5 L Triglycerides Amylase Lipase Urine WBC (Auto) Vancomycin Trough Crossmatch 12/12/17 12/13/17 12/13/17 21:41 00:45 01:29 WBC RBC Hgb Hct MCV MCH MCHC RDW Plt Count Lymph % (Auto) [place] % (Auto) Eos % (Auto) [place] # Eos # Baso # Seg Neutrophils % Seg Neuts % (Manual) Lymphocytes % (Manual) Monocytes % (Manual) Eosinophils % (Manual) Nucleated RBC % Seg Neutrophils # Seg Neutrophils # Man Lymphocytes # (Manual) Monocytes # (Manual) Eosinophils # (Manual) APTT POC ABG pH ABG pH POC ABG pCO2 POC ABG pO2 ABG pO2 ABG HCO3 ABG O2 Saturation ABG Base Excess ABG Hemoglobin VBG pH Oxyhemoglobin Sodium Potassium Chloride Carbon Dioxide BUN Creatinine Glucose POC Glucose Lactic Acid 4.20 H* 2.70 H* 3.30 H* Calcium Phosphorus Total Bilirubin AST ALT C-Reactive Protein Total Protein Albumin Triglycerides Amylase Lipase Urine WBC (Auto) Vancomycin Trough Crossmatch 12/13/17 12/13/17 12/13/17 02:19 03:44 05:58 WBC RBC Hgb Hct MCV 97 H MCH 34 H MCHC 35 H RDW Plt Count 41 L Lymph % (Auto) [place] % (Auto) Eos % (Auto) [place] # Eos # Baso # Seg Neutrophils % Seg Neuts % (Manual) Lymphocytes % (Manual) 8.0 L Monocytes % (Manual) 8.0 H Eosinophils % (Manual) Nucleated RBC % Seg Neutrophils # Seg Neutrophils # Man Lymphocytes # (Manual) 0.6 L Monocytes # (Manual) Eosinophils # (Manual) APTT POC ABG pH 7.334 L ABG pH POC ABG pCO2 POC ABG pO2 43 L ABG pO2 ABG HCO3 ABG O2 Saturation ABG Base Excess ABG Hemoglobin VBG pH Oxyhemoglobin Sodium Potassium Chloride Carbon Dioxide BUN Creatinine Glucose POC Glucose Lactic Acid 2.60 H* Calcium Phosphorus Total Bilirubin AST ALT C-Reactive Protein Total Protein Albumin Triglycerides Amylase Lipase Urine WBC (Auto) Vancomycin Trough Crossmatch 12/13/17 12/13/17 12/13/17 05:58 05:58 05:58 WBC RBC Hgb Hct MCV MCH MCHC RDW Plt Count Lymph % (Auto) [place] % (Auto) Eos % (Auto) [place] # Eos # Baso # Seg Neutrophils % Seg Neuts % (Manual) Lymphocytes % (Manual) Monocytes % (Manual) Eosinophils % (Manual) Nucleated RBC % Seg Neutrophils # Seg Neutrophils # Man Lymphocytes # (Manual) Monocytes # (Manual) Eosinophils # (Manual) APTT POC ABG pH ABG pH POC ABG pCO2 POC ABG pO2 ABG pO2 ABG HCO3 ABG O2 Saturation ABG Base Excess ABG Hemoglobin VBG pH Oxyhemoglobin Sodium 132 L D Potassium Chloride 90.0 L Carbon Dioxide 20 L BUN Creatinine Glucose 346 H POC Glucose 298 H Lactic Acid 4.50 H* Calcium 8.2 L Phosphorus Total Bilirubin AST ALT C-Reactive Protein Total Protein Albumin Triglycerides Amylase Lipase Urine WBC (Auto) Vancomycin Trough Crossmatch 12/13/17 12/13/17 12/13/17 06:27 09:42 11:47 WBC RBC Hgb Hct MCV MCH MCHC RDW Plt Count Lymph % (Auto) [place] % (Auto) Eos % (Auto) [place] # Eos # Baso # Seg Neutrophils % Seg Neuts % (Manual) Lymphocytes % (Manual) Monocytes % (Manual) Eosinophils % (Manual) Nucleated RBC % Seg Neutrophils # Seg Neutrophils # Man Lymphocytes # (Manual) Monocytes # (Manual) Eosinophils # (Manual) APTT POC ABG pH 7.267 L 7.298 L ABG pH POC ABG pCO2 50.4 H 51.3 H POC ABG pO2 47 L 43 L ABG pO2 ABG HCO3 ABG O2 Saturation ABG Base Excess ABG Hemoglobin VBG pH Oxyhemoglobin Sodium Potassium Chloride Carbon Dioxide BUN Creatinine Glucose POC Glucose 376 H Lactic Acid Calcium Phosphorus Total Bilirubin AST ALT C-Reactive Protein Total Protein Albumin Triglycerides Amylase Lipase Urine WBC (Auto) Vancomycin Trough Crossmatch 12/13/17 12/13/17 12/13/17 12:03 13:47 13:47 WBC RBC Hgb Hct MCV MCH MCHC RDW Plt Count Lymph % (Auto) [place] % (Auto) Eos % (Auto) [place] # Eos # Baso # Seg Neutrophils % Seg Neuts % (Manual) Lymphocytes % (Manual) Monocytes % (Manual) Eosinophils % (Manual) Nucleated RBC % Seg Neutrophils # Seg Neutrophils # Man Lymphocytes # (Manual) Monocytes # (Manual) Eosinophils # (Manual) APTT POC ABG pH 7.264 L ABG pH POC ABG pCO2 54.9 H POC ABG pO2 55 L ABG pO2 ABG HCO3 ABG O2 Saturation ABG Base Excess ABG Hemoglobin VBG pH Oxyhemoglobin Sodium Potassium Chloride Carbon Dioxide BUN Creatinine Glucose POC Glucose Lactic Acid 2.80 H* Calcium Phosphorus Total Bilirubin AST ALT C-Reactive Protein Total Protein Albumin Triglycerides Amylase 20 L Lipase 9 L Urine WBC (Auto) Vancomycin Trough Crossmatch 12/13/17 12/13/17 12/13/17 15:36 17:39 21:47 WBC RBC Hgb Hct MCV MCH MCHC RDW Plt Count Lymph % (Auto) [place] % (Auto) Eos % (Auto) [place] # Eos # Baso # Seg Neutrophils % Seg Neuts % (Manual) Lymphocytes % (Manual) Monocytes % (Manual) Eosinophils % (Manual) Nucleated RBC % Seg Neutrophils # Seg Neutrophils # Man Lymphocytes # (Manual) Monocytes # (Manual) Eosinophils # (Manual) APTT POC ABG pH 7.229 L 7.225 L ABG pH POC ABG pCO2 60.9 H 66.3 H POC ABG pO2 42 L 41 L ABG pO2 ABG HCO3 ABG O2 Saturation ABG Base Excess ABG Hemoglobin VBG pH Oxyhemoglobin Sodium Potassium Chloride Carbon Dioxide BUN Creatinine Glucose POC Glucose 289 H Lactic Acid Calcium Phosphorus Total Bilirubin AST ALT C-Reactive Protein Total Protein Albumin Triglycerides Amylase Lipase Urine WBC (Auto) Vancomycin Trough Crossmatch 12/13/17 12/14/17 12/14/17 22:19 02:03 05:16 WBC RBC Hgb Hct MCV MCH MCHC RDW Plt Count Lymph % (Auto) [place] % (Auto) Eos % (Auto) [place] # Eos # Baso # Seg Neutrophils % Seg Neuts % (Manual) Lymphocytes % (Manual) Monocytes % (Manual) Eosinophils % (Manual) Nucleated RBC % Seg Neutrophils # Seg Neutrophils # Man Lymphocytes # (Manual) Monocytes # (Manual) Eosinophils # (Manual) APTT POC ABG pH 7.247 L ABG pH POC ABG pCO2 61.2 H POC ABG pO2 53 L ABG pO2 ABG HCO3 ABG O2 Saturation ABG Base Excess ABG Hemoglobin VBG pH Oxyhemoglobin Sodium Potassium Chloride Carbon Dioxide BUN Creatinine Glucose POC Glucose 274 H 295 H Lactic Acid Calcium Phosphorus Total Bilirubin AST ALT C-Reactive Protein Total Protein Albumin Triglycerides Amylase Lipase Urine WBC (Auto) Vancomycin Trough Crossmatch 12/14/17 12/14/17 12/14/17 05:32 12:04 16:22 WBC RBC Hgb Hct MCV MCH MCHC RDW Plt Count Lymph % (Auto) [place] % (Auto) Eos % (Auto) [place] # Eos # Baso # Seg Neutrophils % Seg Neuts % (Manual) Lymphocytes % (Manual) Monocytes % (Manual) Eosinophils % (Manual) Nucleated RBC % Seg Neutrophils # Seg Neutrophils # Man Lymphocytes # (Manual) Monocytes # (Manual) Eosinophils # (Manual) APTT POC ABG pH ABG pH POC ABG pCO2 POC ABG pO2 ABG pO2 ABG HCO3 ABG O2 Saturation ABG Base Excess ABG Hemoglobin VBG pH Oxyhemoglobin Sodium Potassium Chloride Carbon Dioxide BUN Creatinine Glucose POC Glucose 230 H 241 H 231 H Lactic Acid Calcium Phosphorus Total Bilirubin AST ALT C-Reactive Protein Total Protein Albumin Triglycerides Amylase Lipase Urine WBC (Auto) Vancomycin Trough Crossmatch 12/14/17 12/15/17 12/15/17 21:29 02:29 03:25 WBC RBC Hgb Hct MCV MCH MCHC RDW Plt Count Lymph % (Auto) [place] % (Auto) Eos % (Auto) [place] # Eos # Baso # Seg Neutrophils % Seg Neuts % (Manual) Lymphocytes % (Manual) Monocytes % (Manual) Eosinophils % (Manual) Nucleated RBC % Seg Neutrophils # Seg Neutrophils # Man Lymphocytes # (Manual) Monocytes # (Manual) Eosinophils # (Manual) APTT POC ABG pH 7.330 L ABG pH POC ABG pCO2 55.3 H POC ABG pO2 59 L ABG pO2 ABG HCO3 ABG O2 Saturation ABG Base Excess ABG Hemoglobin VBG pH Oxyhemoglobin Sodium Potassium Chloride Carbon Dioxide BUN Creatinine Glucose POC Glucose 258 H 246 H Lactic Acid Calcium Phosphorus Total Bilirubin AST ALT C-Reactive Protein Total Protein Albumin Triglycerides Amylase Lipase Urine WBC (Auto) Vancomycin Trough Crossmatch 12/15/17 12/15/17 12/15/17 04:05 04:05 04:05 WBC 15.0 H RBC 3.40 L Hgb 11.3 L D Hct 33.8 L D MCV 100 H MCH 33 H MCHC RDW Plt Count 48 L Lymph % (Auto) [place] % (Auto) Eos % (Auto) [place] # Eos # Baso # Seg Neutrophils % Seg Neuts % (Manual) Lymphocytes % (Manual) 3.0 L Monocytes % (Manual) Eosinophils % (Manual) Nucleated RBC % 2.0 H Seg Neutrophils # Seg Neutrophils # Man Lymphocytes # (Manual) 0.5 L Monocytes # (Manual) 0.9 H Eosinophils # (Manual) APTT 20.9 L POC ABG pH ABG pH POC ABG pCO2 POC ABG pO2 ABG pO2 ABG HCO3 ABG O2 Saturation ABG Base Excess ABG Hemoglobin VBG pH Oxyhemoglobin Sodium Potassium Chloride Carbon Dioxide BUN 27 H Creatinine Glucose 258 H POC Glucose Lactic Acid Calcium 8.1 L Phosphorus Total Bilirubin AST ALT C-Reactive Protein Total Protein Albumin Triglycerides Amylase Lipase Urine WBC (Auto) Vancomycin Trough Crossmatch 12/15/17 12/15/17 12/15/17 05:32 11:17 14:59 WBC RBC Hgb Hct MCV MCH MCHC RDW Plt Count Lymph % (Auto) [place] % (Auto) Eos % (Auto) [place] # Eos # Baso # Seg Neutrophils % Seg Neuts % (Manual) Lymphocytes % (Manual) Monocytes % (Manual) Eosinophils % (Manual) Nucleated RBC % Seg Neutrophils # Seg Neutrophils # Man Lymphocytes # (Manual) Monocytes # (Manual) Eosinophils # (Manual) APTT POC ABG pH ABG pH POC ABG pCO2 POC ABG pO2 ABG pO2 ABG HCO3 ABG O2 Saturation ABG Base Excess ABG Hemoglobin VBG pH Oxyhemoglobin Sodium Potassium Chloride Carbon Dioxide BUN Creatinine Glucose POC Glucose 247 H 268 H 233 H Lactic Acid Calcium Phosphorus Total Bilirubin AST ALT C-Reactive Protein Total Protein Albumin Triglycerides Amylase Lipase Urine WBC (Auto) Vancomycin Trough Crossmatch 12/15/17 12/15/17 12/15/17 17:00 18:59 21:37 WBC RBC Hgb Hct MCV MCH MCHC RDW Plt Count Lymph % (Auto) [place] % (Auto) Eos % (Auto) [place] # Eos # Baso # Seg Neutrophils % Seg Neuts % (Manual) Lymphocytes % (Manual) Monocytes % (Manual) Eosinophils % (Manual) Nucleated RBC % Seg Neutrophils # Seg Neutrophils # Man Lymphocytes # (Manual) Monocytes # (Manual) Eosinophils # (Manual) APTT POC ABG pH ABG pH POC ABG pCO2 POC ABG pO2 ABG pO2 ABG HCO3 ABG O2 Saturation ABG Base Excess ABG Hemoglobin VBG pH Oxyhemoglobin Sodium Potassium Chloride Carbon Dioxide BUN Creatinine Glucose POC Glucose 195 H 208 H Lactic Acid Calcium Phosphorus Total Bilirubin AST ALT C-Reactive Protein Total Protein Albumin Triglycerides Amylase Lipase Urine WBC (Auto) 38.0 H Vancomycin Trough Crossmatch 12/16/17 12/16/17 12/16/17 03:17 03:33 04:18 WBC 16.4 H RBC 3.50 L Hgb 11.3 L Hct 35.4 L MCV 101 H MCH MCHC RDW Plt Count 54 L Lymph % (Auto) [place] % (Auto) Eos % (Auto) [place] # Eos # Baso # Seg Neutrophils % Seg Neuts % (Manual) Lymphocytes % (Manual) Monocytes % (Manual) Eosinophils % (Manual) Nucleated RBC % Seg Neutrophils # Seg Neutrophils # Man Lymphocytes # (Manual) Monocytes # (Manual) Eosinophils # (Manual) APTT POC ABG pH ABG pH POC ABG pCO2 47.7 H POC ABG pO2 ABG pO2 ABG HCO3 ABG O2 Saturation ABG Base Excess ABG Hemoglobin VBG pH Oxyhemoglobin Sodium Potassium Chloride Carbon Dioxide BUN Creatinine Glucose POC Glucose 227 H Lactic Acid Calcium Phosphorus Total Bilirubin AST ALT C-Reactive Protein Total Protein Albumin Triglycerides Amylase Lipase Urine WBC (Auto) Vancomycin Trough Crossmatch 12/16/17 12/16/17 12/16/17 04:18 05:08 10:01 WBC RBC Hgb Hct MCV MCH MCHC RDW Plt Count Lymph % (Auto) [place] % (Auto) Eos % (Auto) [place] # Eos # Baso # Seg Neutrophils % Seg Neuts % (Manual) Lymphocytes % (Manual) Monocytes % (Manual) Eosinophils % (Manual) Nucleated RBC % Seg Neutrophils # Seg Neutrophils # Man Lymphocytes # (Manual) Monocytes # (Manual) Eosinophils # (Manual) APTT POC ABG pH ABG pH POC ABG pCO2 POC ABG pO2 ABG pO2 ABG HCO3 ABG O2 Saturation ABG Base Excess ABG Hemoglobin VBG pH Oxyhemoglobin Sodium 147 H Potassium Chloride 107.4 H Carbon Dioxide BUN 28 H Creatinine Glucose 240 H POC Glucose 227 H 190 H Lactic Acid Calcium 8.3 L Phosphorus Total Bilirubin AST ALT C-Reactive Protein Total Protein Albumin Triglycerides Amylase Lipase Urine WBC (Auto) Vancomycin Trough Crossmatch 12/16/17 12/16/17 12/16/17 14:15 17:51 21:14 WBC RBC Hgb Hct MCV MCH MCHC RDW Plt Count Lymph % (Auto) [place] % (Auto) Eos % (Auto) [place] # Eos # Baso # Seg Neutrophils % Seg Neuts % (Manual) Lymphocytes % (Manual) Monocytes % (Manual) Eosinophils % (Manual) Nucleated RBC % Seg Neutrophils # Seg Neutrophils # Man Lymphocytes # (Manual) Monocytes # (Manual) Eosinophils # (Manual) APTT POC ABG pH ABG pH POC ABG pCO2 POC ABG pO2 ABG pO2 ABG HCO3 ABG O2 Saturation ABG Base Excess ABG Hemoglobin VBG pH Oxyhemoglobin Sodium Potassium Chloride Carbon Dioxide BUN Creatinine Glucose POC Glucose 279 H 272 H 260 H Lactic Acid Calcium Phosphorus Total Bilirubin AST ALT C-Reactive Protein Total Protein Albumin Triglycerides Amylase Lipase Urine WBC (Auto) Vancomycin Trough Crossmatch 12/17/17 12/17/17 12/17/17 02:41 04:28 04:28 WBC 19.1 H RBC 3.50 L Hgb 11.4 L Hct 35.3 L MCV 101 H MCH 33 H MCHC RDW Plt Count 65 L Lymph % (Auto) [place] % (Auto) Eos % (Auto) [place] # Eos # Baso # Seg Neutrophils % Seg Neuts % (Manual) Lymphocytes % (Manual) Monocytes % (Manual) Eosinophils % (Manual) Nucleated RBC % Seg Neutrophils # Seg Neutrophils # Man Lymphocytes # (Manual) Monocytes # (Manual) Eosinophils # (Manual) APTT POC ABG pH ABG pH POC ABG pCO2 POC ABG pO2 ABG pO2 ABG HCO3 ABG O2 Saturation ABG Base Excess ABG Hemoglobin VBG pH Oxyhemoglobin Sodium 153 H Potassium Chloride 111.2 H Carbon Dioxide 31 H BUN 28 H Creatinine Glucose 248 H POC Glucose 300 H Lactic Acid Calcium Phosphorus Total Bilirubin AST ALT C-Reactive Protein Total Protein Albumin Triglycerides Amylase Lipase Urine WBC (Auto) Vancomycin Trough Crossmatch 12/17/17 12/17/17 12/17/17 05:15 05:38 10:16 WBC RBC Hgb Hct MCV MCH MCHC RDW Plt Count Lymph % (Auto) [place] % (Auto) Eos % (Auto) [place] # Eos # Baso # Seg Neutrophils % Seg Neuts % (Manual) Lymphocytes % (Manual) Monocytes % (Manual) Eosinophils % (Manual) Nucleated RBC % Seg Neutrophils # Seg Neutrophils # Man Lymphocytes # (Manual) Monocytes # (Manual) Eosinophils # (Manual) APTT POC ABG pH ABG pH POC ABG pCO2 50.3 H POC ABG pO2 120 H ABG pO2 ABG HCO3 ABG O2 Saturation ABG Base Excess ABG Hemoglobin VBG pH Oxyhemoglobin Sodium Potassium Chloride Carbon Dioxide BUN Creatinine Glucose POC Glucose 231 H 196 H Lactic Acid Calcium Phosphorus Total Bilirubin AST ALT C-Reactive Protein Total Protein Albumin Triglycerides Amylase Lipase Urine WBC (Auto) Vancomycin Trough Crossmatch 12/17/17 12/17/17 12/17/17 14:22 18:14 21:35 WBC RBC Hgb Hct MCV MCH MCHC RDW Plt Count Lymph % (Auto) [place] % (Auto) Eos % (Auto) [place] # Eos # Baso # Seg Neutrophils % Seg Neuts % (Manual) Lymphocytes % (Manual) Monocytes % (Manual) Eosinophils % (Manual) Nucleated RBC % Seg Neutrophils # Seg Neutrophils # Man Lymphocytes # (Manual) Monocytes # (Manual) Eosinophils # (Manual) APTT POC ABG pH ABG pH POC ABG pCO2 POC ABG pO2 ABG pO2 ABG HCO3 ABG O2 Saturation ABG Base Excess ABG Hemoglobin VBG pH Oxyhemoglobin Sodium Potassium Chloride Carbon Dioxide BUN Creatinine Glucose POC Glucose 234 H 215 H 159 H Lactic Acid Calcium Phosphorus Total Bilirubin AST ALT C-Reactive Protein Total Protein Albumin Triglycerides Amylase Lipase Urine WBC (Auto) Vancomycin Trough Crossmatch 12/18/17 12/18/17 12/18/17 00:53 02:58 06:03 WBC RBC Hgb Hct MCV MCH MCHC RDW Plt Count Lymph % (Auto) [place] % (Auto) Eos % (Auto) [place] # Eos # Baso # Seg Neutrophils % Seg Neuts % (Manual) Lymphocytes % (Manual) Monocytes % (Manual) Eosinophils % (Manual) Nucleated RBC % Seg Neutrophils # Seg Neutrophils # Man Lymphocytes # (Manual) Monocytes # (Manual) Eosinophils # (Manual) APTT POC ABG pH ABG pH POC ABG pCO2 56.4 H POC ABG pO2 46 L ABG pO2 ABG HCO3 ABG O2 Saturation ABG Base Excess ABG Hemoglobin VBG pH Oxyhemoglobin Sodium Potassium Chloride Carbon Dioxide BUN Creatinine Glucose POC Glucose 176 H 143 H Lactic Acid Calcium Phosphorus Total Bilirubin AST ALT C-Reactive Protein Total Protein Albumin Triglycerides Amylase Lipase Urine WBC (Auto) Vancomycin Trough Crossmatch 12/18/17 12/18/17 12/18/17 07:59 09:20 09:20 WBC 27.4 H RBC 3.57 L Hgb 11.4 L Hct MCV 101 H MCH MCHC RDW Plt Count 64 L Lymph % (Auto) [place] % (Auto) Eos % (Auto) [place] # Eos # Baso # Seg Neutrophils % Seg Neuts % (Manual) Lymphocytes % (Manual) Monocytes % (Manual) Eosinophils % (Manual) Nucleated RBC % Seg Neutrophils # Seg Neutrophils # Man Lymphocytes # (Manual) Monocytes # (Manual) Eosinophils # (Manual) APTT POC ABG pH ABG pH POC ABG pCO2 POC ABG pO2 ABG pO2 ABG HCO3 ABG O2 Saturation ABG Base Excess ABG Hemoglobin VBG pH Oxyhemoglobin Sodium 152 H Potassium Chloride 107.9 H Carbon Dioxide 34 H BUN 23 H Creatinine 0.7 L Glucose 181 H POC Glucose 197 H Lactic Acid Calcium Phosphorus Total Bilirubin AST ALT C-Reactive Protein Total Protein Albumin Triglycerides Amylase Lipase Urine WBC (Auto) Vancomycin Trough Crossmatch 12/18/17 12/18/17 12/18/17 10:22 15:03 18:15 WBC RBC Hgb Hct MCV MCH MCHC RDW Plt Count Lymph % (Auto) [place] % (Auto) Eos % (Auto) [place] # Eos # Baso # Seg Neutrophils % Seg Neuts % (Manual) Lymphocytes % (Manual) Monocytes % (Manual) Eosinophils % (Manual) Nucleated RBC % Seg Neutrophils # Seg Neutrophils # Man Lymphocytes # (Manual) Monocytes # (Manual) Eosinophils # (Manual) APTT POC ABG pH ABG pH POC ABG pCO2 POC ABG pO2 ABG pO2 ABG HCO3 ABG O2 Saturation ABG Base Excess ABG Hemoglobin VBG pH Oxyhemoglobin Sodium Potassium Chloride Carbon Dioxide BUN Creatinine Glucose POC Glucose 195 H 225 H 238 H Lactic Acid Calcium Phosphorus Total Bilirubin AST ALT C-Reactive Protein Total Protein Albumin Triglycerides Amylase Lipase Urine WBC (Auto) Vancomycin Trough Crossmatch 12/18/17 12/18/17 12/19/17 18:29 21:53 00:18 WBC RBC Hgb Hct MCV MCH MCHC RDW Plt Count Lymph % (Auto) [place] % (Auto) Eos % (Auto) [place] # Eos # Baso # Seg Neutrophils % Seg Neuts % (Manual) Lymphocytes % (Manual) Monocytes % (Manual) Eosinophils % (Manual) Nucleated RBC % Seg Neutrophils # Seg Neutrophils # Man Lymphocytes # (Manual) Monocytes # (Manual) Eosinophils # (Manual) APTT POC ABG pH 7.476 H ABG pH POC ABG pCO2 50.4 H POC ABG pO2 158 H ABG pO2 ABG HCO3 ABG O2 Saturation ABG Base Excess ABG Hemoglobin VBG pH Oxyhemoglobin Sodium Potassium Chloride Carbon Dioxide BUN Creatinine Glucose POC Glucose 231 H 263 H Lactic Acid Calcium Phosphorus Total Bilirubin AST ALT C-Reactive Protein Total Protein Albumin Triglycerides Amylase Lipase Urine WBC (Auto) Vancomycin Trough Crossmatch 12/19/17 12/19/17 12/19/17 02:09 04:07 04:07 WBC 25.9 H RBC 3.25 L Hgb 10.6 L Hct 32.8 L MCV 101 H MCH 33 H MCHC RDW Plt Count 67 L Lymph % (Auto) [place] % (Auto) Eos % (Auto) [place] # Eos # Baso # Seg Neutrophils % Seg Neuts % (Manual) Lymphocytes % (Manual) 4.0 L Monocytes % (Manual) Eosinophils % (Manual) Nucleated RBC % Seg Neutrophils # Seg Neutrophils # Man 14.8 H Lymphocytes # (Manual) 1.0 L Monocytes # (Manual) Eosinophils # (Manual) APTT POC ABG pH ABG pH POC ABG pCO2 POC ABG pO2 ABG pO2 ABG HCO3 ABG O2 Saturation ABG Base Excess ABG Hemoglobin VBG pH Oxyhemoglobin Sodium 148 H Potassium Chloride Carbon Dioxide BUN 31 H Creatinine Glucose 314 H POC Glucose 300 H Lactic Acid Calcium 8.1 L Phosphorus Total Bilirubin AST ALT C-Reactive Protein Total Protein Albumin Triglycerides Amylase Lipase Urine WBC (Auto) Vancomycin Trough Crossmatch 12/19/17 12/19/17 12/19/17 05:15 05:41 07:57 WBC RBC Hgb Hct MCV MCH MCHC RDW Plt Count Lymph % (Auto) [place] % (Auto) Eos % (Auto) [place] # Eos # Baso # Seg Neutrophils % Seg Neuts % (Manual) Lymphocytes % (Manual) Monocytes % (Manual) Eosinophils % (Manual) Nucleated RBC % Seg Neutrophils # Seg Neutrophils # Man Lymphocytes # (Manual) Monocytes # (Manual) Eosinophils # (Manual) APTT POC ABG pH 7.507 H ABG pH POC ABG pCO2 POC ABG pO2 ABG pO2 ABG HCO3 ABG O2 Saturation ABG Base Excess ABG Hemoglobin VBG pH Oxyhemoglobin Sodium Potassium Chloride Carbon Dioxide BUN Creatinine Glucose POC Glucose 331 H 307 H Lactic Acid Calcium Phosphorus Total Bilirubin AST ALT C-Reactive Protein Total Protein Albumin Triglycerides Amylase Lipase Urine WBC (Auto) Vancomycin Trough Crossmatch 12/19/17 12/19/17 12/19/17 10:21 14:48 17:59 WBC RBC Hgb Hct MCV MCH MCHC RDW Plt Count Lymph % (Auto) [place] % (Auto) Eos % (Auto) [place] # Eos # Baso # Seg Neutrophils % Seg Neuts % (Manual) Lymphocytes % (Manual) Monocytes % (Manual) Eosinophils % (Manual) Nucleated RBC % Seg Neutrophils # Seg Neutrophils # Man Lymphocytes # (Manual) Monocytes # (Manual) Eosinophils # (Manual) APTT POC ABG pH ABG pH POC ABG pCO2 POC ABG pO2 ABG pO2 ABG HCO3 ABG O2 Saturation ABG Base Excess ABG Hemoglobin VBG pH Oxyhemoglobin Sodium Potassium Chloride Carbon Dioxide BUN Creatinine Glucose POC Glucose 358 H 327 H 355 H Lactic Acid Calcium Phosphorus Total Bilirubin AST ALT C-Reactive Protein Total Protein Albumin Triglycerides Amylase Lipase Urine WBC (Auto) Vancomycin Trough Crossmatch 12/19/17 12/20/17 12/20/17 21:38 02:21 03:42 WBC RBC Hgb Hct MCV MCH MCHC RDW Plt Count Lymph % (Auto) [place] % (Auto) Eos % (Auto) [place] # Eos # Baso # Seg Neutrophils % Seg Neuts % (Manual) Lymphocytes % (Manual) Monocytes % (Manual) Eosinophils % (Manual) Nucleated RBC % Seg Neutrophils # Seg Neutrophils # Man Lymphocytes # (Manual) Monocytes # (Manual) Eosinophils # (Manual) APTT POC ABG pH 7.494 H ABG pH POC ABG pCO2 POC ABG pO2 ABG pO2 ABG HCO3 ABG O2 Saturation ABG Base Excess ABG Hemoglobin VBG pH Oxyhemoglobin Sodium Potassium Chloride Carbon Dioxide BUN Creatinine Glucose POC Glucose 329 H 354 H Lactic Acid Calcium Phosphorus Total Bilirubin AST ALT C-Reactive Protein Total Protein Albumin Triglycerides Amylase Lipase Urine WBC (Auto) Vancomycin Trough Crossmatch 12/20/17 12/20/17 12/20/17 04:08 04:08 04:08 WBC 22.7 H RBC 3.26 L Hgb 10.6 L Hct 32.9 L MCV 101 H MCH 33 H MCHC RDW Plt Count 78 L Lymph % (Auto) [place] % (Auto) Eos % (Auto) [place] # Eos # Baso # Seg Neutrophils % Seg Neuts % (Manual) 80.0 H Lymphocytes % (Manual) 6.0 L Monocytes % (Manual) Eosinophils % (Manual) Nucleated RBC % Seg Neutrophils # Seg Neutrophils # Man 18.2 H Lymphocytes # (Manual) Monocytes # (Manual) Eosinophils # (Manual) APTT POC ABG pH ABG pH POC ABG pCO2 POC ABG pO2 ABG pO2 ABG HCO3 ABG O2 Saturation ABG Base Excess ABG Hemoglobin VBG pH Oxyhemoglobin Sodium Potassium Chloride Carbon Dioxide 31 H BUN 30 H Creatinine 0.6 L Glucose 365 H POC Glucose Lactic Acid Calcium Phosphorus Total Bilirubin AST ALT C-Reactive Protein Total Protein Albumin Triglycerides 981 H Amylase Lipase Urine WBC (Auto) Vancomycin Trough Crossmatch 12/20/17 12/20/17 12/20/17 05:15 10:47 13:40 WBC RBC Hgb Hct MCV MCH MCHC RDW Plt Count Lymph % (Auto) [place] % (Auto) Eos % (Auto) [place] # Eos # Baso # Seg Neutrophils % Seg Neuts % (Manual) Lymphocytes % (Manual) Monocytes % (Manual) Eosinophils % (Manual) Nucleated RBC % Seg Neutrophils # Seg Neutrophils # Man Lymphocytes # (Manual) Monocytes # (Manual) Eosinophils # (Manual) APTT POC ABG pH ABG pH POC ABG pCO2 POC ABG pO2 ABG pO2 ABG HCO3 ABG O2 Saturation ABG Base Excess ABG Hemoglobin VBG pH Oxyhemoglobin Sodium Potassium Chloride Carbon Dioxide BUN Creatinine Glucose POC Glucose 342 H 330 H Lactic Acid Calcium Phosphorus Total Bilirubin AST ALT C-Reactive Protein 7.10 H Total Protein Albumin Triglycerides Amylase Lipase Urine WBC (Auto) Vancomycin Trough Crossmatch 12/20/17 12/20/17 12/20/17 13:40 14:52 16:55 WBC RBC Hgb Hct MCV MCH MCHC RDW Plt Count Lymph % (Auto) [place] % (Auto) Eos % (Auto) [place] # Eos # Baso # Seg Neutrophils % Seg Neuts % (Manual) Lymphocytes % (Manual) Monocytes % (Manual) Eosinophils % (Manual) Nucleated RBC % Seg Neutrophils # Seg Neutrophils # Man Lymphocytes # (Manual) Monocytes # (Manual) Eosinophils # (Manual) APTT POC ABG pH 7.484 H ABG pH POC ABG pCO2 POC ABG pO2 ABG pO2 ABG HCO3 ABG O2 Saturation ABG Base Excess ABG Hemoglobin VBG pH Oxyhemoglobin Sodium Potassium Chloride Carbon Dioxide BUN Creatinine Glucose POC Glucose 293 H Lactic Acid Calcium Phosphorus Total Bilirubin AST ALT C-Reactive Protein Total Protein Albumin Triglycerides 1042 H Amylase Lipase Urine WBC (Auto) Vancomycin Trough Crossmatch 12/20/17 12/20/17 12/21/17 18:00 21:58 02:05 WBC RBC Hgb Hct MCV MCH MCHC RDW Plt Count Lymph % (Auto) [place] % (Auto) Eos % (Auto) [place] # Eos # Baso # Seg Neutrophils % Seg Neuts % (Manual) Lymphocytes % (Manual) Monocytes % (Manual) Eosinophils % (Manual) Nucleated RBC % Seg Neutrophils # Seg Neutrophils # Man Lymphocytes # (Manual) Monocytes # (Manual) Eosinophils # (Manual) APTT POC ABG pH ABG pH POC ABG pCO2 POC ABG pO2 ABG pO2 ABG HCO3 ABG O2 Saturation ABG Base Excess ABG Hemoglobin VBG pH Oxyhemoglobin Sodium Potassium Chloride Carbon Dioxide BUN Creatinine Glucose POC Glucose 268 H 272 H 229 H Lactic Acid Calcium Phosphorus Total Bilirubin AST ALT C-Reactive Protein Total Protein Albumin Triglycerides Amylase Lipase Urine WBC (Auto) Vancomycin Trough Crossmatch 12/21/17 12/21/17 12/21/17 03:59 06:23 08:57 WBC RBC Hgb Hct MCV MCH MCHC RDW Plt Count Lymph % (Auto) [place] % (Auto) Eos % (Auto) [place] # Eos # Baso # Seg Neutrophils % Seg Neuts % (Manual) Lymphocytes % (Manual) Monocytes % (Manual) Eosinophils % (Manual) Nucleated RBC % Seg Neutrophils # Seg Neutrophils # Man Lymphocytes # (Manual) Monocytes # (Manual) Eosinophils # (Manual) APTT POC ABG pH 7.474 H ABG pH POC ABG pCO2 POC ABG pO2 71 L ABG pO2 ABG HCO3 ABG O2 Saturation ABG Base Excess ABG Hemoglobin VBG pH Oxyhemoglobin Sodium Potassium Chloride Carbon Dioxide BUN Creatinine Glucose POC Glucose 182 H 217 H Lactic Acid Calcium Phosphorus Total Bilirubin AST ALT C-Reactive Protein Total Protein Albumin Triglycerides Amylase Lipase Urine WBC (Auto) Vancomycin Trough Crossmatch 12/21/17 12/21/17 12/21/17 13:59 18:00 21:20 WBC RBC Hgb Hct MCV MCH MCHC RDW Plt Count Lymph % (Auto) [place] % (Auto) Eos % (Auto) [place] # Eos # Baso # Seg Neutrophils % Seg Neuts % (Manual) Lymphocytes % (Manual) Monocytes % (Manual) Eosinophils % (Manual) Nucleated RBC % Seg Neutrophils # Seg Neutrophils # Man Lymphocytes # (Manual) Monocytes # (Manual) Eosinophils # (Manual) APTT POC ABG pH ABG pH POC ABG pCO2 POC ABG pO2 ABG pO2 ABG HCO3 ABG O2 Saturation ABG Base Excess ABG Hemoglobin VBG pH Oxyhemoglobin Sodium Potassium Chloride Carbon Dioxide BUN Creatinine Glucose POC Glucose 185 H 176 H 187 H Lactic Acid Calcium Phosphorus Total Bilirubin AST ALT C-Reactive Protein Total Protein Albumin Triglycerides Amylase Lipase Urine WBC (Auto) Vancomycin Trough Crossmatch 12/21/17 12/22/17 12/22/17 23:48 04:39 05:30 WBC RBC Hgb Hct MCV MCH MCHC RDW Plt Count Lymph % (Auto) [place] % (Auto) Eos % (Auto) [place] # Eos # Baso # Seg Neutrophils % Seg Neuts % (Manual) Lymphocytes % (Manual) Monocytes % (Manual) Eosinophils % (Manual) Nucleated RBC % Seg Neutrophils # Seg Neutrophils # Man Lymphocytes # (Manual) Monocytes # (Manual) Eosinophils # (Manual) APTT POC ABG pH 7.528 H ABG pH POC ABG pCO2 POC ABG pO2 63 L ABG pO2 ABG HCO3 ABG O2 Saturation ABG Base Excess ABG Hemoglobin VBG pH Oxyhemoglobin Sodium Potassium Chloride Carbon Dioxide BUN Creatinine Glucose POC Glucose 126 H 117 H Lactic Acid Calcium Phosphorus Total Bilirubin AST ALT C-Reactive Protein Total Protein Albumin Triglycerides Amylase Lipase Urine WBC (Auto) Vancomycin Trough Crossmatch 12/22/17 12/22/17 12/22/17 09:12 10:34 10:34 WBC 29.5 H RBC 3.44 L Hgb 11.2 L Hct 34.2 L MCV 99 H MCH 33 H MCHC RDW 13.1 L Plt Count 97 L Lymph % (Auto) [place] % (Auto) Eos % (Auto) [place] # Eos # Baso # Seg Neutrophils % Seg Neuts % (Manual) 88.0 H Lymphocytes % (Manual) 5.0 L Monocytes % (Manual) Eosinophils % (Manual) Nucleated RBC % Seg Neutrophils # Seg Neutrophils # Man 26.0 H Lymphocytes # (Manual) Monocytes # (Manual) Eosinophils # (Manual) APTT POC ABG pH ABG pH POC ABG pCO2 POC ABG pO2 ABG pO2 ABG HCO3 ABG O2 Saturation ABG Base Excess ABG Hemoglobin VBG pH Oxyhemoglobin Sodium 146 H Potassium 3.1 L Chloride Carbon Dioxide BUN 25 H Creatinine 0.7 L Glucose 146 H POC Glucose 168 H Lactic Acid Calcium 8.1 L Phosphorus Total Bilirubin AST ALT C-Reactive Protein Total Protein Albumin Triglycerides Amylase Lipase Urine WBC (Auto) Vancomycin Trough Crossmatch 12/22/17 12/22/17 12/22/17 14:51 17:21 21:43 WBC RBC Hgb Hct MCV MCH MCHC RDW Plt Count Lymph % (Auto) [place] % (Auto) Eos % (Auto) [place] # Eos # Baso # Seg Neutrophils % Seg Neuts % (Manual) Lymphocytes % (Manual) Monocytes % (Manual) Eosinophils % (Manual) Nucleated RBC % Seg Neutrophils # Seg Neutrophils # Man Lymphocytes # (Manual) Monocytes # (Manual) Eosinophils # (Manual) APTT POC ABG pH ABG pH POC ABG pCO2 POC ABG pO2 ABG pO2 ABG HCO3 ABG O2 Saturation ABG Base Excess ABG Hemoglobin VBG pH Oxyhemoglobin Sodium Potassium Chloride Carbon Dioxide BUN Creatinine Glucose POC Glucose 125 H 110 H 153 H Lactic Acid Calcium Phosphorus Total Bilirubin AST ALT C-Reactive Protein Total Protein Albumin Triglycerides Amylase Lipase Urine WBC (Auto) Vancomycin Trough Crossmatch 12/23/17 12/23/17 12/23/17 04:33 05:28 09:25 WBC 31.4 H RBC 3.05 L Hgb 9.8 L Hct 30.2 L MCV 99 H MCH MCHC RDW 12.9 L Plt Count 101 L Lymph % (Auto) [place] % (Auto) Eos % (Auto) [place] # Eos # Baso # Seg Neutrophils % Seg Neuts % (Manual) 97 H Lymphocytes % (Manual) 2 L Monocytes % (Manual) Eosinophils % (Manual) Nucleated RBC % Seg Neutrophils # Seg Neutrophils # Man 31.1 H Lymphocytes # (Manual) 0.5 L Monocytes # (Manual) Eosinophils # (Manual) APTT POC ABG pH 7.573 H ABG pH POC ABG pCO2 31.0 L POC ABG pO2 63 L ABG pO2 ABG HCO3 ABG O2 Saturation ABG Base Excess ABG Hemoglobin VBG pH Oxyhemoglobin Sodium Potassium Chloride Carbon Dioxide BUN Creatinine Glucose POC Glucose 124 H Lactic Acid Calcium Phosphorus Total Bilirubin AST ALT C-Reactive Protein Total Protein Albumin Triglycerides Amylase Lipase Urine WBC (Auto) Vancomycin Trough Crossmatch 12/23/17 12/23/17 12/23/17 09:25 10:08 14:20 WBC RBC Hgb Hct MCV MCH MCHC RDW Plt Count Lymph % (Auto) [place] % (Auto) Eos % (Auto) [place] # Eos # Baso # Seg Neutrophils % Seg Neuts % (Manual) Lymphocytes % (Manual) Monocytes % (Manual) Eosinophils % (Manual) Nucleated RBC % Seg Neutrophils # Seg Neutrophils # Man Lymphocytes # (Manual) Monocytes # (Manual) Eosinophils # (Manual) APTT POC ABG pH ABG pH POC ABG pCO2 POC ABG pO2 ABG pO2 ABG HCO3 ABG O2 Saturation ABG Base Excess ABG Hemoglobin VBG pH Oxyhemoglobin Sodium Potassium 3.1 L Chloride Carbon Dioxide BUN Creatinine 0.6 L Glucose 169 H POC Glucose 171 H 211 H Lactic Acid Calcium 7.9 L Phosphorus Total Bilirubin AST ALT C-Reactive Protein Total Protein Albumin Triglycerides Amylase Lipase Urine WBC (Auto) Vancomycin Trough Crossmatch 12/23/17 12/23/17 12/24/17 18:59 21:49 01:47 WBC RBC Hgb Hct MCV MCH MCHC RDW Plt Count Lymph % (Auto) [place] % (Auto) Eos % (Auto) [place] # Eos # Baso # Seg Neutrophils % Seg Neuts % (Manual) Lymphocytes % (Manual) Monocytes % (Manual) Eosinophils % (Manual) Nucleated RBC % Seg Neutrophils # Seg Neutrophils # Man Lymphocytes # (Manual) Monocytes # (Manual) Eosinophils # (Manual) APTT POC ABG pH ABG pH POC ABG pCO2 POC ABG pO2 ABG pO2 ABG HCO3 ABG O2 Saturation ABG Base Excess ABG Hemoglobin VBG pH Oxyhemoglobin Sodium Potassium Chloride Carbon Dioxide BUN Creatinine Glucose POC Glucose 175 H 146 H 143 H Lactic Acid Calcium Phosphorus Total Bilirubin AST ALT C-Reactive Protein Total Protein Albumin Triglycerides Amylase Lipase Urine WBC (Auto) Vancomycin Trough Crossmatch 12/24/17 12/24/17 12/24/17 05:40 10:12 13:12 WBC RBC Hgb Hct MCV MCH MCHC RDW Plt Count Lymph % (Auto) [place] % (Auto) Eos % (Auto) [place] # Eos # Baso # Seg Neutrophils % Seg Neuts % (Manual) Lymphocytes % (Manual) Monocytes % (Manual) Eosinophils % (Manual) Nucleated RBC % Seg Neutrophils # Seg Neutrophils # Man Lymphocytes # (Manual) Monocytes # (Manual) Eosinophils # (Manual) APTT POC ABG pH 7.558 H ABG pH POC ABG pCO2 27.6 L POC ABG pO2 71 L ABG pO2 ABG HCO3 ABG O2 Saturation ABG Base Excess ABG Hemoglobin VBG pH Oxyhemoglobin Sodium Potassium Chloride Carbon Dioxide BUN Creatinine Glucose POC Glucose 118 H 111 H Lactic Acid Calcium Phosphorus Total Bilirubin AST ALT C-Reactive Protein Total Protein Albumin Triglycerides Amylase Lipase Urine WBC (Auto) Vancomycin Trough Crossmatch 12/24/17 12/24/17 12/24/17 16:26 20:44 21:49 WBC RBC Hgb Hct MCV MCH MCHC RDW Plt Count Lymph % (Auto) [place] % (Auto) Eos % (Auto) [place] # Eos # Baso # Seg Neutrophils % Seg Neuts % (Manual) Lymphocytes % (Manual) Monocytes % (Manual) Eosinophils % (Manual) Nucleated RBC % Seg Neutrophils # Seg Neutrophils # Man Lymphocytes # (Manual) Monocytes # (Manual) Eosinophils # (Manual) APTT POC ABG pH ABG pH POC ABG pCO2 POC ABG pO2 ABG pO2 ABG HCO3 ABG O2 Saturation ABG Base Excess ABG Hemoglobin VBG pH Oxyhemoglobin Sodium Potassium Chloride Carbon Dioxide BUN Creatinine Glucose POC Glucose 113 H 124 H 115 H Lactic Acid Calcium Phosphorus Total Bilirubin AST ALT C-Reactive Protein Total Protein Albumin Triglycerides Amylase Lipase Urine WBC (Auto) Vancomycin Trough Crossmatch 12/24/17 12/25/17 12/25/17 Unknown 02:26 03:38 WBC RBC Hgb Hct MCV MCH MCHC RDW Plt Count Lymph % (Auto) [place] % (Auto) Eos % (Auto) [place] # Eos # Baso # Seg Neutrophils % Seg Neuts % (Manual) Lymphocytes % (Manual) Monocytes % (Manual) Eosinophils % (Manual) Nucleated RBC % Seg Neutrophils # Seg Neutrophils # Man Lymphocytes # (Manual) Monocytes # (Manual) Eosinophils # (Manual) APTT POC ABG pH 7.503 H ABG pH POC ABG pCO2 POC ABG pO2 66 L ABG pO2 ABG HCO3 ABG O2 Saturation ABG Base Excess ABG Hemoglobin VBG pH Oxyhemoglobin Sodium Potassium 3.0 L Chloride Carbon Dioxide BUN Creatinine 0.5 L Glucose 166 H POC Glucose 106 H Lactic Acid Calcium 7.8 L Phosphorus Total Bilirubin AST ALT C-Reactive Protein Total Protein Albumin Triglycerides Amylase Lipase Urine WBC (Auto) Vancomycin Trough Crossmatch 12/25/17 12/25/17 12/25/17 04:58 12:58 15:06 WBC RBC Hgb Hct MCV MCH MCHC RDW Plt Count Lymph % (Auto) [place] % (Auto) Eos % (Auto) [place] # Eos # Baso # Seg Neutrophils % Seg Neuts % (Manual) Lymphocytes % (Manual) Monocytes % (Manual) Eosinophils % (Manual) Nucleated RBC % Seg Neutrophils # Seg Neutrophils # Man Lymphocytes # (Manual) Monocytes # (Manual) Eosinophils # (Manual) APTT POC ABG pH ABG pH POC ABG pCO2 POC ABG pO2 ABG pO2 ABG HCO3 ABG O2 Saturation ABG Base Excess ABG Hemoglobin VBG pH Oxyhemoglobin Sodium Potassium Chloride Carbon Dioxide BUN Creatinine Glucose POC Glucose 113 H 118 H Lactic Acid Calcium Phosphorus Total Bilirubin AST ALT C-Reactive Protein Total Protein Albumin Triglycerides Amylase Lipase Urine WBC (Auto) Vancomycin Trough 22.5 H Crossmatch 12/25/17 12/25/17 12/25/17 17:59 21:33 Unknown WBC 20.5 H RBC 2.75 L Hgb 9.1 L Hct 27.1 L MCV 99 H MCH 33 H MCHC RDW Plt Count 126 L Lymph % (Auto) [place] % (Auto) Eos % (Auto) [place] # Eos # Baso # Seg Neutrophils % Seg Neuts % (Manual) 89.0 H Lymphocytes % (Manual) 6.0 L Monocytes % (Manual) Eosinophils % (Manual) Nucleated RBC % Seg Neutrophils # Seg Neutrophils # Man 18.2 H Lymphocytes # (Manual) Monocytes # (Manual) Eosinophils # (Manual) APTT POC ABG pH ABG pH POC ABG pCO2 POC ABG pO2 ABG pO2 ABG HCO3 ABG O2 Saturation ABG Base Excess ABG Hemoglobin VBG pH Oxyhemoglobin Sodium Potassium Chloride Carbon Dioxide BUN Creatinine Glucose POC Glucose 145 H 167 H Lactic Acid Calcium Phosphorus Total Bilirubin AST ALT C-Reactive Protein Total Protein Albumin Triglycerides Amylase Lipase Urine WBC (Auto) Vancomycin Trough Crossmatch 12/25/17 12/26/17 12/26/17 Unknown 02:26 05:29 WBC RBC Hgb Hct MCV MCH MCHC RDW Plt Count Lymph % (Auto) [place] % (Auto) Eos % (Auto) [place] # Eos # Baso # Seg Neutrophils % Seg Neuts % (Manual) Lymphocytes % (Manual) Monocytes % (Manual) Eosinophils % (Manual) Nucleated RBC % Seg Neutrophils # Seg Neutrophils # Man Lymphocytes # (Manual) Monocytes # (Manual) Eosinophils # (Manual) APTT POC ABG pH ABG pH POC ABG pCO2 POC ABG pO2 ABG pO2 ABG HCO3 ABG O2 Saturation ABG Base Excess ABG Hemoglobin VBG pH Oxyhemoglobin Sodium Potassium 2.8 L* Chloride Carbon Dioxide BUN Creatinine 0.6 L Glucose POC Glucose 167 H 216 H Lactic Acid Calcium 7.4 L Phosphorus Total Bilirubin AST ALT C-Reactive Protein Total Protein Albumin Triglycerides Amylase Lipase Urine WBC (Auto) Vancomycin Trough Crossmatch 12/26/17 12/26/17 12/26/17 10:21 14:30 18:35 WBC RBC Hgb Hct MCV MCH MCHC RDW Plt Count Lymph % (Auto) [place] % (Auto) Eos % (Auto) [place] # Eos # Baso # Seg Neutrophils % Seg Neuts % (Manual) Lymphocytes % (Manual) Monocytes % (Manual) Eosinophils % (Manual) Nucleated RBC % Seg Neutrophils # Seg Neutrophils # Man Lymphocytes # (Manual) Monocytes # (Manual) Eosinophils # (Manual) APTT POC ABG pH ABG pH POC ABG pCO2 POC ABG pO2 ABG pO2 ABG HCO3 ABG O2 Saturation ABG Base Excess ABG Hemoglobin VBG pH Oxyhemoglobin Sodium Potassium Chloride Carbon Dioxide BUN Creatinine Glucose POC Glucose 164 H 157 H 146 H Lactic Acid Calcium Phosphorus Total Bilirubin AST ALT C-Reactive Protein Total Protein Albumin Triglycerides Amylase Lipase Urine WBC (Auto) Vancomycin Trough Crossmatch 12/26/17 12/26/17 12/27/17 21:21 Unknown 01:54 WBC RBC Hgb Hct MCV MCH MCHC RDW Plt Count Lymph % (Auto) [place] % (Auto) Eos % (Auto) [place] # Eos # Baso # Seg Neutrophils % Seg Neuts % (Manual) Lymphocytes % (Manual) Monocytes % (Manual) Eosinophils % (Manual) Nucleated RBC % Seg Neutrophils # Seg Neutrophils # Man Lymphocytes # (Manual) Monocytes # (Manual) Eosinophils # (Manual) APTT POC ABG pH ABG pH POC ABG pCO2 POC ABG pO2 ABG pO2 ABG HCO3 ABG O2 Saturation ABG Base Excess ABG Hemoglobin VBG pH Oxyhemoglobin Sodium Potassium 3.0 L Chloride Carbon Dioxide BUN Creatinine 0.5 L Glucose 166 H POC Glucose 132 H 157 H Lactic Acid Calcium 7.8 L Phosphorus Total Bilirubin AST ALT C-Reactive Protein Total Protein Albumin Triglycerides Amylase Lipase Urine WBC (Auto) Vancomycin Trough Crossmatch 12/27/17 12/27/17 12/27/17 05:20 05:20 05:44 WBC 26.4 H RBC 2.83 L Hgb 9.3 L Hct 27.6 L MCV 98 H MCH 33 H MCHC RDW Plt Count Lymph % (Auto) [place] % (Auto) Eos % (Auto) [place] # Eos # Baso # Seg Neutrophils % Seg Neuts % (Manual) 85.0 H Lymphocytes % (Manual) 5.0 L Monocytes % (Manual) Eosinophils % (Manual) Nucleated RBC % Seg Neutrophils # Seg Neutrophils # Man 22.4 H Lymphocytes # (Manual) Monocytes # (Manual) Eosinophils # (Manual) 0.5 H APTT POC ABG pH ABG pH POC ABG pCO2 POC ABG pO2 ABG pO2 ABG HCO3 ABG O2 Saturation ABG Base Excess ABG Hemoglobin VBG pH Oxyhemoglobin Sodium Potassium 2.3 L* D Chloride Carbon Dioxide BUN 7 L Creatinine 0.6 L Glucose 123 H POC Glucose 128 H Lactic Acid Calcium 8.1 L Phosphorus Total Bilirubin AST ALT C-Reactive Protein Total Protein Albumin Triglycerides Amylase Lipase Urine WBC (Auto) Vancomycin Trough Crossmatch 12/27/17 12/27/17 12/27/17 10:04 14:44 15:30 WBC RBC Hgb Hct MCV MCH MCHC RDW Plt Count Lymph % (Auto) [place] % (Auto) Eos % (Auto) [place] # Eos # Baso # Seg Neutrophils % Seg Neuts % (Manual) Lymphocytes % (Manual) Monocytes % (Manual) Eosinophils % (Manual) Nucleated RBC % Seg Neutrophils # Seg Neutrophils # Man Lymphocytes # (Manual) Monocytes # (Manual) Eosinophils # (Manual) APTT POC ABG pH ABG pH POC ABG pCO2 POC ABG pO2 ABG pO2 ABG HCO3 ABG O2 Saturation ABG Base Excess ABG Hemoglobin VBG pH Oxyhemoglobin Sodium Potassium 3.1 L D Chloride Carbon Dioxide BUN Creatinine Glucose POC Glucose 115 H 128 H Lactic Acid Calcium Phosphorus Total Bilirubin AST ALT C-Reactive Protein Total Protein Albumin Triglycerides Amylase Lipase Urine WBC (Auto) Vancomycin Trough Crossmatch 12/28/17 12/28/17 12/28/17 00:39 02:13 05:17 WBC RBC Hgb Hct MCV MCH MCHC RDW Plt Count Lymph % (Auto) [place] % (Auto) Eos % (Auto) [place] # Eos # Baso # Seg Neutrophils % Seg Neuts % (Manual) Lymphocytes % (Manual) Monocytes % (Manual) Eosinophils % (Manual) Nucleated RBC % Seg Neutrophils # Seg Neutrophils # Man Lymphocytes # (Manual) Monocytes # (Manual) Eosinophils # (Manual) APTT POC ABG pH ABG pH 7.497 H POC ABG pCO2 POC ABG pO2 ABG pO2 71.4 L ABG HCO3 29.9 H ABG O2 Saturation ABG Base Excess 6.2 H ABG Hemoglobin 7.9 L VBG pH Oxyhemoglobin 94.9 L Sodium Potassium Chloride Carbon Dioxide BUN Creatinine Glucose POC Glucose 112 H 108 H Lactic Acid Calcium Phosphorus Total Bilirubin AST ALT C-Reactive Protein Total Protein Albumin Triglycerides Amylase Lipase Urine WBC (Auto) Vancomycin Trough Crossmatch 12/28/17 12/28/17 12/28/17 08:47 08:47 09:10 WBC 28.1 H RBC 2.76 L Hgb 9.1 L Hct 27.0 L MCV 98 H MCH 33 H MCHC RDW Plt Count Lymph % (Auto) [place] % (Auto) Eos % (Auto) [place] # Eos # Baso # Seg Neutrophils % Seg Neuts % (Manual) Lymphocytes % (Manual) Monocytes % (Manual) Eosinophils % (Manual) Nucleated RBC % Seg Neutrophils # Seg Neutrophils # Man Lymphocytes # (Manual) Monocytes # (Manual) Eosinophils # (Manual) APTT POC ABG pH ABG pH POC ABG pCO2 POC ABG pO2 ABG pO2 ABG HCO3 ABG O2 Saturation ABG Base Excess ABG Hemoglobin VBG pH Oxyhemoglobin Sodium Potassium 2.2 L* D Chloride Carbon Dioxide BUN 5 L Creatinine 0.5 L Glucose 106 H POC Glucose Lactic Acid Calcium 8.3 L Phosphorus 2.20 L Total Bilirubin AST ALT C-Reactive Protein Total Protein Albumin Triglycerides Amylase Lipase Urine WBC (Auto) Vancomycin Trough Crossmatch 12/28/17 12/28/17 12/28/17 13:28 14:22 18:48 WBC RBC Hgb Hct MCV MCH MCHC RDW Plt Count Lymph % (Auto) [place] % (Auto) Eos % (Auto) [place] # Eos # Baso # Seg Neutrophils % Seg Neuts % (Manual) Lymphocytes % (Manual) Monocytes % (Manual) Eosinophils % (Manual) Nucleated RBC % Seg Neutrophils # Seg Neutrophils # Man Lymphocytes # (Manual) Monocytes # (Manual) Eosinophils # (Manual) APTT POC ABG pH ABG pH 7.476 H POC ABG pCO2 POC ABG pO2 ABG pO2 167.7 H ABG HCO3 30.9 H ABG O2 Saturation 99.1 H ABG Base Excess 6.7 H ABG Hemoglobin 8.5 L VBG pH Oxyhemoglobin Sodium Potassium Chloride Carbon Dioxide BUN Creatinine Glucose POC Glucose 141 H 129 H Lactic Acid Calcium Phosphorus Total Bilirubin AST ALT C-Reactive Protein Total Protein Albumin Triglycerides Amylase Lipase Urine WBC (Auto) Vancomycin Trough Crossmatch 12/28/17 12/29/17 12/29/17 21:22 02:45 05:11 WBC RBC Hgb Hct MCV MCH MCHC RDW Plt Count Lymph % (Auto) [place] % (Auto) Eos % (Auto) [place] # Eos # Baso # Seg Neutrophils % Seg Neuts % (Manual) Lymphocytes % (Manual) Monocytes % (Manual) Eosinophils % (Manual) Nucleated RBC % Seg Neutrophils # Seg Neutrophils # Man Lymphocytes # (Manual) Monocytes # (Manual) Eosinophils # (Manual) APTT POC ABG pH ABG pH POC ABG pCO2 POC ABG pO2 ABG pO2 ABG HCO3 ABG O2 Saturation ABG Base Excess ABG Hemoglobin VBG pH Oxyhemoglobin Sodium Potassium Chloride Carbon Dioxide BUN Creatinine Glucose POC Glucose 123 H 138 H 138 H Lactic Acid Calcium Phosphorus Total Bilirubin AST ALT C-Reactive Protein Total Protein Albumin Triglycerides Amylase Lipase Urine WBC (Auto) Vancomycin Trough Crossmatch 12/29/17 12/29/17 12/29/17 05:50 08:04 08:04 WBC 20.8 H RBC 2.26 L Hgb 7.5 L Hct 22.7 L MCV 100 H MCH 33 H MCHC RDW Plt Count Lymph % (Auto) [place] % (Auto) Eos % (Auto) [place] # Eos # Baso # Seg Neutrophils % Seg Neuts % (Manual) 93.0 H Lymphocytes % (Manual) 2.0 L Monocytes % (Manual) Eosinophils % (Manual) Nucleated RBC % Seg Neutrophils # Seg Neutrophils # Man 19.3 H Lymphocytes # (Manual) 0.4 L Monocytes # (Manual) Eosinophils # (Manual) 0.7 H APTT POC ABG pH ABG pH 7.467 H POC ABG pCO2 POC ABG pO2 ABG pO2 ABG HCO3 28.2 H ABG O2 Saturation ABG Base Excess 4.0 H ABG Hemoglobin < 5.1 L VBG pH Oxyhemoglobin Sodium Potassium 3.0 L D Chloride Carbon Dioxide BUN Creatinine 0.5 L Glucose 147 H POC Glucose Lactic Acid Calcium 7.8 L Phosphorus Total Bilirubin AST ALT C-Reactive Protein Total Protein 5.6 L Albumin 2.4 L Triglycerides Amylase Lipase Urine WBC (Auto) Vancomycin Trough Crossmatch 12/29/17 12/29/17 12/29/17 08:20 10:59 14:09 WBC RBC Hgb Hct MCV MCH MCHC RDW Plt Count Lymph % (Auto) [place] % (Auto) Eos % (Auto) [place] # Eos # Baso # Seg Neutrophils % Seg Neuts % (Manual) Lymphocytes % (Manual) Monocytes % (Manual) Eosinophils % (Manual) Nucleated RBC % Seg Neutrophils # Seg Neutrophils # Man Lymphocytes # (Manual) Monocytes # (Manual) Eosinophils # (Manual) APTT POC ABG pH ABG pH POC ABG pCO2 POC ABG pO2 ABG pO2 ABG HCO3 ABG O2 Saturation ABG Base Excess ABG Hemoglobin VBG pH Oxyhemoglobin Sodium Potassium Chloride Carbon Dioxide BUN Creatinine Glucose POC Glucose 153 H 186 H 183 H Lactic Acid Calcium Phosphorus Total Bilirubin AST ALT C-Reactive Protein Total Protein Albumin Triglycerides Amylase Lipase Urine WBC (Auto) Vancomycin Trough Crossmatch 12/29/17 12/29/17 12/29/17 18:03 22:05 22:56 WBC RBC Hgb Hct MCV MCH MCHC RDW Plt Count Lymph % (Auto) [place] % (Auto) Eos % (Auto) [place] # Eos # Baso # Seg Neutrophils % Seg Neuts % (Manual) Lymphocytes % (Manual) Monocytes % (Manual) Eosinophils % (Manual) Nucleated RBC % Seg Neutrophils # Seg Neutrophils # Man Lymphocytes # (Manual) Monocytes # (Manual) Eosinophils # (Manual) APTT POC ABG pH ABG pH POC ABG pCO2 POC ABG pO2 ABG pO2 ABG HCO3 ABG O2 Saturation ABG Base Excess ABG Hemoglobin VBG pH Oxyhemoglobin Sodium Potassium Chloride Carbon Dioxide BUN Creatinine Glucose POC Glucose 159 H 146 H 179 H Lactic Acid Calcium Phosphorus Total Bilirubin AST ALT C-Reactive Protein Total Protein Albumin Triglycerides Amylase Lipase Urine WBC (Auto) Vancomycin Trough Crossmatch 12/30/17 12/30/17 12/30/17 02:03 04:50 04:50 WBC 18.3 H RBC 2.22 L Hgb 7.4 L Hct 23.0 L MCV 104 H MCH 33 H MCHC RDW Plt Count 137 L Lymph % (Auto) 9.0 L [place] % (Auto) Eos % (Auto) [place] # Eos # 0.5 H Baso # Seg Neutrophils % 84.9 H Seg Neuts % (Manual) Lymphocytes % (Manual) Monocytes % (Manual) Eosinophils % (Manual) Nucleated RBC % Seg Neutrophils # 15.6 H Seg Neutrophils # Man Lymphocytes # (Manual) Monocytes # (Manual) Eosinophils # (Manual) APTT POC ABG pH ABG pH POC ABG pCO2 POC ABG pO2 ABG pO2 ABG HCO3 ABG O2 Saturation ABG Base Excess ABG Hemoglobin VBG pH Oxyhemoglobin Sodium 147 H Potassium 3.1 L D Chloride 107.5 H Carbon Dioxide BUN Creatinine 0.5 L Glucose 120 H POC Glucose 118 H Lactic Acid Calcium 7.4 L Phosphorus Total Bilirubin AST ALT C-Reactive Protein Total Protein Albumin Triglycerides Amylase Lipase Urine WBC (Auto) Vancomycin Trough Crossmatch 12/30/17 12/30/17 12/30/17 05:04 13:53 17:33 WBC RBC Hgb Hct MCV MCH MCHC RDW Plt Count Lymph % (Auto) [place] % (Auto) Eos % (Auto) [place] # Eos # Baso # Seg Neutrophils % Seg Neuts % (Manual) Lymphocytes % (Manual) Monocytes % (Manual) Eosinophils % (Manual) Nucleated RBC % Seg Neutrophils # Seg Neutrophils # Man Lymphocytes # (Manual) Monocytes # (Manual) Eosinophils # (Manual) APTT POC ABG pH ABG pH POC ABG pCO2 POC ABG pO2 ABG pO2 ABG HCO3 ABG O2 Saturation ABG Base Excess ABG Hemoglobin VBG pH Oxyhemoglobin Sodium Potassium Chloride Carbon Dioxide BUN Creatinine Glucose POC Glucose 150 H 113 H 145 H Lactic Acid Calcium Phosphorus Total Bilirubin AST ALT C-Reactive Protein Total Protein Albumin Triglycerides Amylase Lipase Urine WBC (Auto) Vancomycin Trough Crossmatch 12/31/17 12/31/17 12/31/17 01:54 03:15 03:15 WBC 17.1 H RBC 2.08 L Hgb 6.9 L Hct 20.6 L MCV 99 H MCH 33 H MCHC RDW 13.1 L Plt Count Lymph % (Auto) 10.5 L [place] % (Auto) Eos % (Auto) [place] # Eos # 0.6 H Baso # Seg Neutrophils % 82.3 H Seg Neuts % (Manual) Lymphocytes % (Manual) Monocytes % (Manual) Eosinophils % (Manual) Nucleated RBC % Seg Neutrophils # 14.0 H Seg Neutrophils # Man Lymphocytes # (Manual) Monocytes # (Manual) Eosinophils # (Manual) APTT POC ABG pH ABG pH POC ABG pCO2 POC ABG pO2 ABG pO2 ABG HCO3 ABG O2 Saturation ABG Base Excess ABG Hemoglobin VBG pH Oxyhemoglobin Sodium Potassium 3.5 L Chloride Carbon Dioxide BUN Creatinine 0.6 L Glucose POC Glucose 69 L Lactic Acid Calcium 7.8 L Phosphorus Total Bilirubin AST ALT C-Reactive Protein Total Protein Albumin Triglycerides Amylase Lipase Urine WBC (Auto) Vancomycin Trough Crossmatch 12/31/17 12/31/17 12/31/17 05:15 09:25 10:17 WBC RBC Hgb Hct MCV MCH MCHC RDW Plt Count Lymph % (Auto) [place] % (Auto) Eos % (Auto) [place] # Eos # Baso # Seg Neutrophils % Seg Neuts % (Manual) Lymphocytes % (Manual) Monocytes % (Manual) Eosinophils % (Manual) Nucleated RBC % Seg Neutrophils # Seg Neutrophils # Man Lymphocytes # (Manual) Monocytes # (Manual) Eosinophils # (Manual) APTT POC ABG pH ABG pH 7.516 H POC ABG pCO2 POC ABG pO2 ABG pO2 69.2 L ABG HCO3 28.7 H ABG O2 Saturation ABG Base Excess 5.3 H ABG Hemoglobin 6.6 L VBG pH Oxyhemoglobin 93.8 L Sodium Potassium Chloride Carbon Dioxide BUN Creatinine Glucose POC Glucose 143 H Lactic Acid Calcium Phosphorus Total Bilirubin AST ALT C-Reactive Protein Total Protein Albumin Triglycerides Amylase Lipase Urine WBC (Auto) Vancomycin Trough Crossmatch See Detail 12/31/17 12/31/17 12/31/17 14:20 18:30 21:40 WBC RBC Hgb Hct MCV MCH MCHC RDW Plt Count Lymph % (Auto) [place] % (Auto) Eos % (Auto) [place] # Eos # Baso # Seg Neutrophils % Seg Neuts % (Manual) Lymphocytes % (Manual) Monocytes % (Manual) Eosinophils % (Manual) Nucleated RBC % Seg Neutrophils # Seg Neutrophils # Man Lymphocytes # (Manual) Monocytes # (Manual) Eosinophils # (Manual) APTT POC ABG pH ABG pH POC ABG pCO2 POC ABG pO2 ABG pO2 ABG HCO3 ABG O2 Saturation ABG Base Excess ABG Hemoglobin VBG pH Oxyhemoglobin Sodium Potassium Chloride Carbon Dioxide BUN Creatinine Glucose POC Glucose 175 H 137 H 182 H Lactic Acid Calcium Phosphorus Total Bilirubin AST ALT C-Reactive Protein Total Protein Albumin Triglycerides Amylase Lipase Urine WBC (Auto) Vancomycin Trough Crossmatch 12/31/17 01/01/18 01/01/18 23:34 02:09 04:00 WBC 16.4 H RBC 2.41 L Hgb 7.8 L Hct 23.6 L MCV 98 H MCH 33 H MCHC RDW Plt Count Lymph % (Auto) 10.7 L [place] % (Auto) Eos % (Auto) [place] # Eos # 0.7 H Baso # 0.2 H Seg Neutrophils % 79.0 H Seg Neuts % (Manual) Lymphocytes % (Manual) Monocytes % (Manual) Eosinophils % (Manual) Nucleated RBC % Seg Neutrophils # 12.9 H Seg Neutrophils # Man Lymphocytes # (Manual) Monocytes # (Manual) Eosinophils # (Manual) APTT POC ABG pH ABG pH POC ABG pCO2 POC ABG pO2 ABG pO2 ABG HCO3 ABG O2 Saturation ABG Base Excess ABG Hemoglobin VBG pH Oxyhemoglobin Sodium Potassium Chloride Carbon Dioxide BUN Creatinine Glucose POC Glucose 132 H 117 H Lactic Acid Calcium Phosphorus Total Bilirubin AST ALT C-Reactive Protein Total Protein Albumin Triglycerides Amylase Lipase Urine WBC (Auto) Vancomycin Trough Crossmatch 01/01/18 01/01/18 01/01/18 04:00 04:04 05:32 WBC RBC Hgb Hct MCV MCH MCHC RDW Plt Count Lymph % (Auto) [place] % (Auto) Eos % (Auto) [place] # Eos # Baso # Seg Neutrophils % Seg Neuts % (Manual) Lymphocytes % (Manual) Monocytes % (Manual) Eosinophils % (Manual) Nucleated RBC % Seg Neutrophils # Seg Neutrophils # Man Lymphocytes # (Manual) Monocytes # (Manual) Eosinophils # (Manual) APTT POC ABG pH ABG pH 7.458 H POC ABG pCO2 POC ABG pO2 ABG pO2 67.5 L ABG HCO3 27.5 H ABG O2 Saturation 94.4 L ABG Base Excess 3.4 H ABG Hemoglobin 7.8 L VBG pH Oxyhemoglobin 92.1 L Sodium Potassium Chloride Carbon Dioxide BUN Creatinine 0.4 L Glucose 129 H POC Glucose 129 H Lactic Acid Calcium 7.9 L Phosphorus Total Bilirubin AST ALT C-Reactive Protein Total Protein Albumin Triglycerides Amylase Lipase Urine WBC (Auto) Vancomycin Trough Crossmatch 01/01/18 01/01/18 01/01/18 10:10 12:38 17:27 WBC RBC Hgb Hct MCV MCH MCHC RDW Plt Count Lymph % (Auto) [place] % (Auto) Eos % (Auto) [place] # Eos # Baso # Seg Neutrophils % Seg Neuts % (Manual) Lymphocytes % (Manual) Monocytes % (Manual) Eosinophils % (Manual) Nucleated RBC % Seg Neutrophils # Seg Neutrophils # Man Lymphocytes # (Manual) Monocytes # (Manual) Eosinophils # (Manual) APTT POC ABG pH ABG pH POC ABG pCO2 POC ABG pO2 ABG pO2 ABG HCO3 ABG O2 Saturation ABG Base Excess ABG Hemoglobin VBG pH Oxyhemoglobin Sodium Potassium Chloride Carbon Dioxide BUN Creatinine Glucose POC Glucose 155 H 179 H 152 H Lactic Acid Calcium Phosphorus Total Bilirubin AST ALT C-Reactive Protein Total Protein Albumin Triglycerides Amylase Lipase Urine WBC (Auto) Vancomycin Trough Crossmatch 01/01/18 01/02/18 01/02/18 21:36 01:42 04:10 WBC 12.1 H RBC 2.29 L Hgb 7.5 L Hct 22.7 L MCV 99 H MCH 33 H MCHC RDW Plt Count Lymph % (Auto) [place] % (Auto) Eos % (Auto) 5.5 H [place] # 0.9 H Eos # 0.7 H Baso # Seg Neutrophils % Seg Neuts % (Manual) Lymphocytes % (Manual) Monocytes % (Manual) Eosinophils % (Manual) Nucleated RBC % Seg Neutrophils # 8.3 H Seg Neutrophils # Man Lymphocytes # (Manual) Monocytes # (Manual) Eosinophils # (Manual) APTT POC ABG pH ABG pH POC ABG pCO2 POC ABG pO2 ABG pO2 ABG HCO3 ABG O2 Saturation ABG Base Excess ABG Hemoglobin VBG pH Oxyhemoglobin Sodium Potassium Chloride Carbon Dioxide BUN Creatinine Glucose POC Glucose 118 H 117 H Lactic Acid Calcium Phosphorus Total Bilirubin AST ALT C-Reactive Protein Total Protein Albumin Triglycerides Amylase Lipase Urine WBC (Auto) Vancomycin Trough Crossmatch 01/02/18 01/02/18 01/02/18 04:10 04:57 13:42 WBC RBC Hgb Hct MCV MCH MCHC RDW Plt Count Lymph % (Auto) [place] % (Auto) Eos % (Auto) [place] # Eos # Baso # Seg Neutrophils % Seg Neuts % (Manual) Lymphocytes % (Manual) Monocytes % (Manual) Eosinophils % (Manual) Nucleated RBC % Seg Neutrophils # Seg Neutrophils # Man Lymphocytes # (Manual) Monocytes # (Manual) Eosinophils # (Manual) APTT POC ABG pH ABG pH POC ABG pCO2 POC ABG pO2 ABG pO2 ABG HCO3 ABG O2 Saturation ABG Base Excess ABG Hemoglobin VBG pH Oxyhemoglobin Sodium Potassium Chloride 97.0 L Carbon Dioxide BUN Creatinine 0.4 L Glucose POC Glucose 107 H 133 H Lactic Acid Calcium 8.1 L Phosphorus Total Bilirubin AST ALT C-Reactive Protein Total Protein 6.0 L Albumin 2.5 L Triglycerides Amylase Lipase Urine WBC (Auto) Vancomycin Trough Crossmatch 01/02/18 01/02/18 01/03/18 17:33 22:11 02:18 WBC RBC Hgb Hct MCV MCH MCHC RDW Plt Count Lymph % (Auto) [place] % (Auto) Eos % (Auto) [place] # Eos # Baso # Seg Neutrophils % Seg Neuts % (Manual) Lymphocytes % (Manual) Monocytes % (Manual) Eosinophils % (Manual) Nucleated RBC % Seg Neutrophils # Seg Neutrophils # Man Lymphocytes # (Manual) Monocytes # (Manual) Eosinophils # (Manual) APTT POC ABG pH ABG pH POC ABG pCO2 POC ABG pO2 ABG pO2 ABG HCO3 ABG O2 Saturation ABG Base Excess ABG Hemoglobin VBG pH Oxyhemoglobin Sodium Potassium Chloride Carbon Dioxide BUN Creatinine Glucose POC Glucose 146 H 171 H 162 H Lactic Acid Calcium Phosphorus Total Bilirubin AST ALT C-Reactive Protein Total Protein Albumin Triglycerides Amylase Lipase Urine WBC (Auto) Vancomycin Trough Crossmatch 01/03/18 01/03/18 01/03/18 04:56 05:21 17:20 WBC RBC Hgb Hct MCV MCH MCHC RDW Plt Count Lymph % (Auto) [place] % (Auto) Eos % (Auto) [place] # Eos # Baso # Seg Neutrophils % Seg Neuts % (Manual) Lymphocytes % (Manual) Monocytes % (Manual) Eosinophils % (Manual) Nucleated RBC % Seg Neutrophils # Seg Neutrophils # Man Lymphocytes # (Manual) Monocytes # (Manual) Eosinophils # (Manual) APTT POC ABG pH ABG pH POC ABG pCO2 POC ABG pO2 ABG pO2 79.5 L ABG HCO3 31.4 H ABG O2 Saturation ABG Base Excess 6.3 H ABG Hemoglobin 10.4 L VBG pH Oxyhemoglobin 94.2 L Sodium Potassium Chloride Carbon Dioxide BUN Creatinine Glucose POC Glucose 163 H 153 H Lactic Acid Calcium Phosphorus Total Bilirubin AST ALT C-Reactive Protein Total Protein Albumin Triglycerides Amylase Lipase Urine WBC (Auto) Vancomycin Trough Crossmatch 01/03/18 01/03/18 01/04/18 17:50 19:52 00:40 WBC RBC Hgb Hct MCV MCH MCHC RDW Plt Count Lymph % (Auto) [place] % (Auto) Eos % (Auto) [place] # Eos # Baso # Seg Neutrophils % Seg Neuts % (Manual) Lymphocytes % (Manual) Monocytes % (Manual) Eosinophils % (Manual) Nucleated RBC % Seg Neutrophils # Seg Neutrophils # Man Lymphocytes # (Manual) Monocytes # (Manual) Eosinophils # (Manual) APTT POC ABG pH ABG pH POC ABG pCO2 POC ABG pO2 ABG pO2 ABG HCO3 ABG O2 Saturation ABG Base Excess ABG Hemoglobin VBG pH Oxyhemoglobin Sodium Potassium Chloride Carbon Dioxide BUN Creatinine Glucose POC Glucose 157 H 147 H 158 H Lactic Acid Calcium Phosphorus Total Bilirubin AST ALT C-Reactive Protein Total Protein Albumin Triglycerides Amylase Lipase Urine WBC (Auto) Vancomycin Trough Crossmatch 01/04/18 01/04/18 01/04/18 04:01 05:13 06:12 WBC 11.5 H RBC 2.95 L Hgb 9.8 L Hct 29.5 L D MCV 100 H MCH 33 H MCHC RDW Plt Count Lymph % (Auto) [place] % (Auto) Eos % (Auto) [place] # Eos # Baso # Seg Neutrophils % Seg Neuts % (Manual) Lymphocytes % (Manual) Monocytes % (Manual) Eosinophils % (Manual) 6.0 H Nucleated RBC % Seg Neutrophils # Seg Neutrophils # Man Lymphocytes # (Manual) Monocytes # (Manual) Eosinophils # (Manual) 0.7 H APTT POC ABG pH ABG pH 7.498 H POC ABG pCO2 POC ABG pO2 ABG pO2 129.5 H ABG HCO3 30.1 H ABG O2 Saturation ABG Base Excess 6.4 H ABG Hemoglobin 9.3 L VBG pH Oxyhemoglobin Sodium Potassium Chloride Carbon Dioxide BUN Creatinine Glucose POC Glucose 163 H Lactic Acid Calcium Phosphorus Total Bilirubin AST ALT C-Reactive Protein Total Protein Albumin Triglycerides Amylase Lipase Urine WBC (Auto) Vancomycin Trough Crossmatch 01/04/18 01/04/18 01/04/18 06:12 10:55 14:29 WBC RBC Hgb Hct MCV MCH MCHC RDW Plt Count Lymph % (Auto) [place] % (Auto) Eos % (Auto) [place] # Eos # Baso # Seg Neutrophils % Seg Neuts % (Manual) Lymphocytes % (Manual) Monocytes % (Manual) Eosinophils % (Manual) Nucleated RBC % Seg Neutrophils # Seg Neutrophils # Man Lymphocytes # (Manual) Monocytes # (Manual) Eosinophils # (Manual) APTT POC ABG pH ABG pH POC ABG pCO2 POC ABG pO2 ABG pO2 ABG HCO3 ABG O2 Saturation ABG Base Excess ABG Hemoglobin VBG pH Oxyhemoglobin Sodium Potassium Chloride Carbon Dioxide BUN Creatinine 0.5 L Glucose 174 H POC Glucose 187 H 144 H Lactic Acid Calcium Phosphorus Total Bilirubin AST 41 H ALT C-Reactive Protein Total Protein Albumin 2.9 L Triglycerides Amylase Lipase Urine WBC (Auto) Vancomycin Trough Crossmatch 01/04/18 01/04/18 01/05/18 17:25 21:56 01:59 WBC RBC Hgb Hct MCV MCH MCHC RDW Plt Count Lymph % (Auto) [place] % (Auto) Eos % (Auto) [place] # Eos # Baso # Seg Neutrophils % Seg Neuts % (Manual) Lymphocytes % (Manual) Monocytes % (Manual) Eosinophils % (Manual) Nucleated RBC % Seg Neutrophils # Seg Neutrophils # Man Lymphocytes # (Manual) Monocytes # (Manual) Eosinophils # (Manual) APTT POC ABG pH ABG pH POC ABG pCO2 POC ABG pO2 ABG pO2 ABG HCO3 ABG O2 Saturation ABG Base Excess ABG Hemoglobin VBG pH Oxyhemoglobin Sodium Potassium Chloride Carbon Dioxide BUN Creatinine Glucose POC Glucose 156 H 171 H 162 H Lactic Acid Calcium Phosphorus Total Bilirubin AST ALT C-Reactive Protein Total Protein Albumin Triglycerides Amylase Lipase Urine WBC (Auto) Vancomycin Trough Crossmatch 01/05/18 01/05/18 01/05/18 03:50 06:00 06:07 WBC RBC Hgb Hct MCV MCH MCHC RDW Plt Count Lymph % (Auto) [place] % (Auto) Eos % (Auto) [place] # Eos # Baso # Seg Neutrophils % Seg Neuts % (Manual) Lymphocytes % (Manual) Monocytes % (Manual) Eosinophils % (Manual) Nucleated RBC % Seg Neutrophils # Seg Neutrophils # Man Lymphocytes # (Manual) Monocytes # (Manual) Eosinophils # (Manual) APTT POC ABG pH ABG pH POC ABG pCO2 POC ABG pO2 ABG pO2 64.6 L ABG HCO3 30.2 H ABG O2 Saturation 91.3 L ABG Base Excess 5.5 H ABG Hemoglobin 10.1 L VBG pH Oxyhemoglobin 89.0 L Sodium Potassium Chloride Carbon Dioxide BUN Creatinine 0.4 L Glucose 144 H POC Glucose 136 H Lactic Acid Calcium Phosphorus Total Bilirubin AST ALT C-Reactive Protein Total Protein Albumin Triglycerides Amylase Lipase Urine WBC (Auto) Vancomycin Trough Crossmatch 01/05/18 01/05/18 01/05/18 10:46 14:03 17:31 WBC RBC Hgb Hct MCV MCH MCHC RDW Plt Count Lymph % (Auto) [place] % (Auto) Eos % (Auto) [place] # Eos # Baso # Seg Neutrophils % Seg Neuts % (Manual) Lymphocytes % (Manual) Monocytes % (Manual) Eosinophils % (Manual) Nucleated RBC % Seg Neutrophils # Seg Neutrophils # Man Lymphocytes # (Manual) Monocytes # (Manual) Eosinophils # (Manual) APTT POC ABG pH ABG pH POC ABG pCO2 POC ABG pO2 ABG pO2 ABG HCO3 ABG O2 Saturation ABG Base Excess ABG Hemoglobin VBG pH Oxyhemoglobin Sodium Potassium Chloride Carbon Dioxide BUN Creatinine Glucose POC Glucose 147 H 141 H 192 H Lactic Acid Calcium Phosphorus Total Bilirubin AST ALT C-Reactive Protein Total Protein Albumin Triglycerides Amylase Lipase Urine WBC (Auto) Vancomycin Trough Crossmatch 01/05/18 01/05/18 01/06/18 22:12 Unknown 01:58 WBC RBC Hgb Hct MCV MCH MCHC RDW Plt Count Lymph % (Auto) [place] % (Auto) Eos % (Auto) [place] # Eos # Baso # Seg Neutrophils % Seg Neuts % (Manual) Lymphocytes % (Manual) Monocytes % (Manual) Eosinophils % (Manual) Nucleated RBC % Seg Neutrophils # Seg Neutrophils # Man Lymphocytes # (Manual) Monocytes # (Manual) Eosinophils # (Manual) APTT POC ABG pH ABG pH 7.463 H POC ABG pCO2 POC ABG pO2 ABG pO2 74.0 L ABG HCO3 29.4 H ABG O2 Saturation ABG Base Excess 5.2 H ABG Hemoglobin 10.0 L VBG pH Oxyhemoglobin 93.4 L Sodium Potassium Chloride Carbon Dioxide BUN Creatinine Glucose POC Glucose 209 H 138 H Lactic Acid Calcium Phosphorus Total Bilirubin AST ALT C-Reactive Protein Total Protein Albumin Triglycerides Amylase Lipase Urine WBC (Auto) Vancomycin Trough Crossmatch 01/06/18 01/06/18 01/06/18 03:14 05:30 05:30 WBC 12.6 H RBC 3.16 L Hgb 10.4 L Hct 31.7 L MCV 100 H MCH 33 H MCHC RDW 15.5 H Plt Count Lymph % (Auto) [place] % (Auto) Eos % (Auto) [place] # Eos # Baso # Seg Neutrophils % Seg Neuts % (Manual) 72.0 H Lymphocytes % (Manual) Monocytes % (Manual) 9.0 H Eosinophils % (Manual) Nucleated RBC % 1.0 H Seg Neutrophils # Seg Neutrophils # Man 9.1 H Lymphocytes # (Manual) Monocytes # (Manual) 1.1 H Eosinophils # (Manual) APTT POC ABG pH ABG pH POC ABG pCO2 POC ABG pO2 ABG pO2 ABG HCO3 28.8 H ABG O2 Saturation ABG Base Excess 4.2 H ABG Hemoglobin 9.3 L VBG pH Oxyhemoglobin 94.7 L Sodium 136 L Potassium Chloride 94.2 L Carbon Dioxide BUN Creatinine 0.4 L Glucose 146 H POC Glucose Lactic Acid Calcium Phosphorus Total Bilirubin AST ALT C-Reactive Protein Total Protein Albumin 3.1 L Triglycerides Amylase Lipase Urine WBC (Auto) Vancomycin Trough Crossmatch 01/06/18 01/06/18 01/06/18 05:42 10:00 14:40 WBC RBC Hgb Hct MCV MCH MCHC RDW Plt Count Lymph % (Auto) [place] % (Auto) Eos % (Auto) [place] # Eos # Baso # Seg Neutrophils % Seg Neuts % (Manual) Lymphocytes % (Manual) Monocytes % (Manual) Eosinophils % (Manual) Nucleated RBC % Seg Neutrophils # Seg Neutrophils # Man Lymphocytes # (Manual) Monocytes # (Manual) Eosinophils # (Manual) APTT POC ABG pH ABG pH POC ABG pCO2 POC ABG pO2 ABG pO2 ABG HCO3 ABG O2 Saturation ABG Base Excess ABG Hemoglobin VBG pH Oxyhemoglobin Sodium Potassium Chloride Carbon Dioxide BUN Creatinine Glucose POC Glucose 158 H 155 H 115 H Lactic Acid Calcium Phosphorus Total Bilirubin AST ALT C-Reactive Protein Total Protein Albumin Triglycerides Amylase Lipase Urine WBC (Auto) Vancomycin Trough Crossmatch 01/06/18 01/06/18 01/07/18 17:45 21:59 05:29 WBC RBC Hgb Hct MCV MCH MCHC RDW Plt Count Lymph % (Auto) [place] % (Auto) Eos % (Auto) [place] # Eos # Baso # Seg Neutrophils % Seg Neuts % (Manual) Lymphocytes % (Manual) Monocytes % (Manual) Eosinophils % (Manual) Nucleated RBC % Seg Neutrophils # Seg Neutrophils # Man Lymphocytes # (Manual) Monocytes # (Manual) Eosinophils # (Manual) APTT POC ABG pH ABG pH POC ABG pCO2 POC ABG pO2 ABG pO2 ABG HCO3 ABG O2 Saturation ABG Base Excess ABG Hemoglobin VBG pH Oxyhemoglobin Sodium Potassium Chloride Carbon Dioxide BUN Creatinine Glucose POC Glucose 156 H 177 H 179 H Lactic Acid Calcium Phosphorus Total Bilirubin AST ALT C-Reactive Protein Total Protein Albumin Triglycerides Amylase Lipase Urine WBC (Auto) Vancomycin Trough Crossmatch 01/07/18 01/07/18 01/07/18 10:00 14:32 18:05 WBC RBC Hgb Hct MCV MCH MCHC RDW Plt Count Lymph % (Auto) [place] % (Auto) Eos % (Auto) [place] # Eos # Baso # Seg Neutrophils % Seg Neuts % (Manual) Lymphocytes % (Manual) Monocytes % (Manual) Eosinophils % (Manual) Nucleated RBC % Seg Neutrophils # Seg Neutrophils # Man Lymphocytes # (Manual) Monocytes # (Manual) Eosinophils # (Manual) APTT POC ABG pH ABG pH POC ABG pCO2 POC ABG pO2 ABG pO2 ABG HCO3 ABG O2 Saturation ABG Base Excess ABG Hemoglobin VBG pH Oxyhemoglobin Sodium Potassium Chloride Carbon Dioxide BUN Creatinine Glucose POC Glucose 131 H 177 H 143 H Lactic Acid Calcium Phosphorus Total Bilirubin AST ALT C-Reactive Protein Total Protein Albumin Triglycerides Amylase Lipase Urine WBC (Auto) Vancomycin Trough Crossmatch 01/07/18 01/08/18 01/08/18 22:11 02:26 05:37 WBC RBC Hgb Hct MCV MCH MCHC RDW Plt Count Lymph % (Auto) [place] % (Auto) Eos % (Auto) [place] # Eos # Baso # Seg Neutrophils % Seg Neuts % (Manual) Lymphocytes % (Manual) Monocytes % (Manual) Eosinophils % (Manual) Nucleated RBC % Seg Neutrophils # Seg Neutrophils # Man Lymphocytes # (Manual) Monocytes # (Manual) Eosinophils # (Manual) APTT POC ABG pH ABG pH POC ABG pCO2 POC ABG pO2 ABG pO2 ABG HCO3 ABG O2 Saturation ABG Base Excess ABG Hemoglobin VBG pH Oxyhemoglobin Sodium Potassium Chloride Carbon Dioxide BUN Creatinine Glucose POC Glucose 133 H 194 H 106 H Lactic Acid Calcium Phosphorus Total Bilirubin AST ALT C-Reactive Protein Total Protein Albumin Triglycerides Amylase Lipase Urine WBC (Auto) Vancomycin Trough Crossmatch 01/08/18 01/08/18 01/08/18 09:41 10:45 10:45 WBC 11.6 H RBC 3.21 L Hgb 10.5 L Hct 32.0 L MCV 100 H MCH 33 H MCHC RDW 15.7 H Plt Count Lymph % (Auto) [place] % (Auto) Eos % (Auto) [place] # Eos # Baso # Seg Neutrophils % Seg Neuts % (Manual) Lymphocytes % (Manual) Monocytes % (Manual) Eosinophils % (Manual) Nucleated RBC % Seg Neutrophils # Seg Neutrophils # Man Lymphocytes # (Manual) Monocytes # (Manual) Eosinophils # (Manual) APTT POC ABG pH ABG pH POC ABG pCO2 POC ABG pO2 ABG pO2 ABG HCO3 ABG O2 Saturation ABG Base Excess ABG Hemoglobin VBG pH Oxyhemoglobin Sodium Potassium Chloride 96.4 L Carbon Dioxide BUN Creatinine 0.4 L Glucose 146 H POC Glucose 142 H Lactic Acid Calcium Phosphorus Total Bilirubin AST ALT C-Reactive Protein Total Protein Albumin Triglycerides Amylase Lipase Urine WBC (Auto) Vancomycin Trough Crossmatch 01/08/18 01/08/18 01/08/18 14:31 17:20 21:46 WBC RBC Hgb Hct MCV MCH MCHC RDW Plt Count Lymph % (Auto) [place] % (Auto) Eos % (Auto) [place] # Eos # Baso # Seg Neutrophils % Seg Neuts % (Manual) Lymphocytes % (Manual) Monocytes % (Manual) Eosinophils % (Manual) Nucleated RBC % Seg Neutrophils # Seg Neutrophils # Man Lymphocytes # (Manual) Monocytes # (Manual) Eosinophils # (Manual) APTT POC ABG pH ABG pH POC ABG pCO2 POC ABG pO2 ABG pO2 ABG HCO3 ABG O2 Saturation ABG Base Excess ABG Hemoglobin VBG pH Oxyhemoglobin Sodium Potassium Chloride Carbon Dioxide BUN Creatinine Glucose POC Glucose 158 H 160 H 166 H Lactic Acid Calcium Phosphorus Total Bilirubin AST ALT C-Reactive Protein Total Protein Albumin Triglycerides Amylase Lipase Urine WBC (Auto) Vancomycin Trough Crossmatch 01/09/18 01/09/18 01/09/18 02:01 04:30 04:30 WBC RBC 3.21 L Hgb 10.9 L Hct 31.7 L MCV 99 H MCH 34 H MCHC RDW 15.8 H Plt Count Lymph % (Auto) [place] % (Auto) Eos % (Auto) [place] # Eos # Baso # Seg Neutrophils % Seg Neuts % (Manual) Lymphocytes % (Manual) Monocytes % (Manual) Eosinophils % (Manual) Nucleated RBC % Seg Neutrophils # Seg Neutrophils # Man Lymphocytes # (Manual) Monocytes # (Manual) Eosinophils # (Manual) APTT POC ABG pH ABG pH POC ABG pCO2 POC ABG pO2 ABG pO2 ABG HCO3 ABG O2 Saturation ABG Base Excess ABG Hemoglobin VBG pH Oxyhemoglobin Sodium 135 L Potassium Chloride 93.8 L Carbon Dioxide BUN Creatinine 0.5 L Glucose 137 H POC Glucose 155 H Lactic Acid Calcium Phosphorus Total Bilirubin AST ALT C-Reactive Protein Total Protein Albumin Triglycerides Amylase Lipase Urine WBC (Auto) Vancomycin Trough Crossmatch 01/09/18 01/09/18 01/09/18 05:42 10:41 14:01 WBC RBC Hgb Hct MCV MCH MCHC RDW Plt Count Lymph % (Auto) [place] % (Auto) Eos % (Auto) [place] # Eos # Baso # Seg Neutrophils % Seg Neuts % (Manual) Lymphocytes % (Manual) Monocytes % (Manual) Eosinophils % (Manual) Nucleated RBC % Seg Neutrophils # Seg Neutrophils # Man Lymphocytes # (Manual) Monocytes # (Manual) Eosinophils # (Manual) APTT POC ABG pH ABG pH POC ABG pCO2 POC ABG pO2 ABG pO2 ABG HCO3 ABG O2 Saturation ABG Base Excess ABG Hemoglobin VBG pH Oxyhemoglobin Sodium Potassium Chloride Carbon Dioxide BUN Creatinine Glucose POC Glucose 142 H 187 H 138 H Lactic Acid Calcium Phosphorus Total Bilirubin AST ALT C-Reactive Protein Total Protein Albumin Triglycerides Amylase Lipase Urine WBC (Auto) Vancomycin Trough Crossmatch 01/09/18 01/09/18 01/10/18 18:09 21:09 02:06 WBC RBC Hgb Hct MCV MCH MCHC RDW Plt Count Lymph % (Auto) [place] % (Auto) Eos % (Auto) [place] # Eos # Baso # Seg Neutrophils % Seg Neuts % (Manual) Lymphocytes % (Manual) Monocytes % (Manual) Eosinophils % (Manual) Nucleated RBC % Seg Neutrophils # Seg Neutrophils # Man Lymphocytes # (Manual) Monocytes # (Manual) Eosinophils # (Manual) APTT POC ABG pH ABG pH POC ABG pCO2 POC ABG pO2 ABG pO2 ABG HCO3 ABG O2 Saturation ABG Base Excess ABG Hemoglobin VBG pH Oxyhemoglobin Sodium Potassium Chloride Carbon Dioxide BUN Creatinine Glucose POC Glucose 143 H 188 H 160 H Lactic Acid Calcium Phosphorus Total Bilirubin AST ALT C-Reactive Protein Total Protein Albumin Triglycerides Amylase Lipase Urine WBC (Auto) Vancomycin Trough Crossmatch 01/10/18 01/10/18 01/10/18 05:58 09:54 13:58 WBC RBC Hgb Hct MCV MCH MCHC RDW Plt Count Lymph % (Auto) [place] % (Auto) Eos % (Auto) [place] # Eos # Baso # Seg Neutrophils % Seg Neuts % (Manual) Lymphocytes % (Manual) Monocytes % (Manual) Eosinophils % (Manual) Nucleated RBC % Seg Neutrophils # Seg Neutrophils # Man Lymphocytes # (Manual) Monocytes # (Manual) Eosinophils # (Manual) APTT POC ABG pH ABG pH POC ABG pCO2 POC ABG pO2 ABG pO2 ABG HCO3 ABG O2 Saturation ABG Base Excess ABG Hemoglobin VBG pH Oxyhemoglobin Sodium Potassium Chloride Carbon Dioxide BUN Creatinine Glucose POC Glucose 134 H 162 H 152 H Lactic Acid Calcium Phosphorus Total Bilirubin AST ALT C-Reactive Protein Total Protein Albumin Triglycerides Amylase Lipase Urine WBC (Auto) Vancomycin Trough Crossmatch 01/10/18 01/10/18 01/11/18 16:56 21:57 02:22 WBC RBC Hgb Hct MCV MCH MCHC RDW Plt Count Lymph % (Auto) [place] % (Auto) Eos % (Auto) [place] # Eos # Baso # Seg Neutrophils % Seg Neuts % (Manual) Lymphocytes % (Manual) Monocytes % (Manual) Eosinophils % (Manual) Nucleated RBC % Seg Neutrophils # Seg Neutrophils # Man Lymphocytes # (Manual) Monocytes # (Manual) Eosinophils # (Manual) APTT POC ABG pH ABG pH POC ABG pCO2 POC ABG pO2 ABG pO2 ABG HCO3 ABG O2 Saturation ABG Base Excess ABG Hemoglobin VBG pH Oxyhemoglobin Sodium Potassium Chloride Carbon Dioxide BUN Creatinine Glucose POC Glucose 161 H 161 H 159 H Lactic Acid Calcium Phosphorus Total Bilirubin AST ALT C-Reactive Protein Total Protein Albumin Triglycerides Amylase Lipase Urine WBC (Auto) Vancomycin Trough Crossmatch 01/11/18 01/11/18 01/11/18 06:19 10:23 11:21 WBC 12.7 H RBC 3.50 L Hgb 11.5 L Hct 34.8 L MCV 99 H MCH 33 H MCHC RDW Plt Count Lymph % (Auto) [place] % (Auto) Eos % (Auto) [place] # Eos # Baso # Seg Neutrophils % Seg Neuts % (Manual) Lymphocytes % (Manual) Monocytes % (Manual) Eosinophils % (Manual) Nucleated RBC % Seg Neutrophils # Seg Neutrophils # Man Lymphocytes # (Manual) Monocytes # (Manual) Eosinophils # (Manual) APTT POC ABG pH ABG pH POC ABG pCO2 POC ABG pO2 ABG pO2 ABG HCO3 ABG O2 Saturation ABG Base Excess ABG Hemoglobin VBG pH Oxyhemoglobin Sodium Potassium Chloride Carbon Dioxide BUN Creatinine Glucose POC Glucose 174 H 172 H Lactic Acid Calcium Phosphorus Total Bilirubin AST ALT C-Reactive Protein Total Protein Albumin Triglycerides Amylase Lipase Urine WBC (Auto) Vancomycin Trough Crossmatch 01/11/18 01/11/18 01/11/18 11:21 14:00 17:19 WBC RBC Hgb Hct MCV MCH MCHC RDW Plt Count Lymph % (Auto) [place] % (Auto) Eos % (Auto) [place] # Eos # Baso # Seg Neutrophils % Seg Neuts % (Manual) Lymphocytes % (Manual) Monocytes % (Manual) Eosinophils % (Manual) Nucleated RBC % Seg Neutrophils # Seg Neutrophils # Man Lymphocytes # (Manual) Monocytes # (Manual) Eosinophils # (Manual) APTT POC ABG pH ABG pH POC ABG pCO2 POC ABG pO2 ABG pO2 ABG HCO3 ABG O2 Saturation ABG Base Excess ABG Hemoglobin VBG pH Oxyhemoglobin Sodium 133 L Potassium Chloride 92.9 L Carbon Dioxide BUN Creatinine 0.4 L Glucose 156 H POC Glucose 152 H 177 H Lactic Acid Calcium Phosphorus Total Bilirubin AST ALT C-Reactive Protein Total Protein Albumin Triglycerides Amylase Lipase Urine WBC (Auto) Vancomycin Trough Crossmatch 01/11/18 01/12/18 01/12/18 22:20 02:09 05:50 WBC RBC Hgb Hct MCV MCH MCHC RDW Plt Count Lymph % (Auto) [place] % (Auto) Eos % (Auto) [place] # Eos # Baso # Seg Neutrophils % Seg Neuts % (Manual) Lymphocytes % (Manual) Monocytes % (Manual) Eosinophils % (Manual) Nucleated RBC % Seg Neutrophils # Seg Neutrophils # Man Lymphocytes # (Manual) Monocytes # (Manual) Eosinophils # (Manual) APTT POC ABG pH ABG pH POC ABG pCO2 POC ABG pO2 ABG pO2 ABG HCO3 ABG O2 Saturation ABG Base Excess ABG Hemoglobin VBG pH Oxyhemoglobin Sodium Potassium Chloride Carbon Dioxide BUN Creatinine Glucose POC Glucose 208 H 179 H 165 H Lactic Acid Calcium Phosphorus Total Bilirubin AST ALT C-Reactive Protein Total Protein Albumin Triglycerides Amylase Lipase Urine WBC (Auto) Vancomycin Trough Crossmatch 01/12/18 01/12/18 01/12/18 09:31 13:23 17:35 WBC RBC Hgb Hct MCV MCH MCHC RDW Plt Count Lymph % (Auto) [place] % (Auto) Eos % (Auto) [place] # Eos # Baso # Seg Neutrophils % Seg Neuts % (Manual) Lymphocytes % (Manual) Monocytes % (Manual) Eosinophils % (Manual) Nucleated RBC % Seg Neutrophils # Seg Neutrophils # Man Lymphocytes # (Manual) Monocytes # (Manual) Eosinophils # (Manual) APTT POC ABG pH ABG pH POC ABG pCO2 POC ABG pO2 ABG pO2 ABG HCO3 ABG O2 Saturation ABG Base Excess ABG Hemoglobin VBG pH Oxyhemoglobin Sodium Potassium Chloride Carbon Dioxide BUN Creatinine Glucose POC Glucose 142 H 138 H 172 H Lactic Acid Calcium Phosphorus Total Bilirubin AST ALT C-Reactive Protein Total Protein Albumin Triglycerides Amylase Lipase Urine WBC (Auto) Vancomycin Trough Crossmatch 01/12/18 01/13/18 01/13/18 22:03 01:56 05:00 WBC RBC 3.50 L Hgb Hct 34.1 L MCV 98 H MCH 34 H MCHC 35 H RDW Plt Count Lymph % (Auto) [place] % (Auto) Eos % (Auto) [place] # Eos # Baso # Seg Neutrophils % Seg Neuts % (Manual) Lymphocytes % (Manual) Monocytes % (Manual) Eosinophils % (Manual) Nucleated RBC % Seg Neutrophils # Seg Neutrophils # Man Lymphocytes # (Manual) Monocytes # (Manual) Eosinophils # (Manual) APTT POC ABG pH ABG pH POC ABG pCO2 POC ABG pO2 ABG pO2 ABG HCO3 ABG O2 Saturation ABG Base Excess ABG Hemoglobin VBG pH Oxyhemoglobin Sodium Potassium Chloride Carbon Dioxide BUN Creatinine Glucose POC Glucose 166 H 129 H Lactic Acid Calcium Phosphorus Total Bilirubin AST ALT C-Reactive Protein Total Protein Albumin Triglycerides Amylase Lipase Urine WBC (Auto) Vancomycin Trough Crossmatch 01/13/18 01/13/18 01/13/18 05:00 05:06 09:44 WBC RBC Hgb Hct MCV MCH MCHC RDW Plt Count Lymph % (Auto) [place] % (Auto) Eos % (Auto) [place] # Eos # Baso # Seg Neutrophils % Seg Neuts % (Manual) Lymphocytes % (Manual) Monocytes % (Manual) Eosinophils % (Manual) Nucleated RBC % Seg Neutrophils # Seg Neutrophils # Man Lymphocytes # (Manual) Monocytes # (Manual) Eosinophils # (Manual) APTT POC ABG pH ABG pH POC ABG pCO2 POC ABG pO2 ABG pO2 ABG HCO3 ABG O2 Saturation ABG Base Excess ABG Hemoglobin VBG pH Oxyhemoglobin Sodium 136 L Potassium Chloride 95.5 L Carbon Dioxide BUN Creatinine 0.4 L Glucose 165 H POC Glucose 188 H 132 H Lactic Acid Calcium Phosphorus Total Bilirubin AST ALT C-Reactive Protein Total Protein Albumin Triglycerides Amylase Lipase Urine WBC (Auto) Vancomycin Trough Crossmatch 01/13/18 01/13/18 01/13/18 13:53 18:06 21:26 WBC RBC Hgb Hct MCV MCH MCHC RDW Plt Count Lymph % (Auto) [place] % (Auto) Eos % (Auto) [place] # Eos # Baso # Seg Neutrophils % Seg Neuts % (Manual) Lymphocytes % (Manual) Monocytes % (Manual) Eosinophils % (Manual) Nucleated RBC % Seg Neutrophils # Seg Neutrophils # Man Lymphocytes # (Manual) Monocytes # (Manual) Eosinophils # (Manual) APTT POC ABG pH ABG pH POC ABG pCO2 POC ABG pO2 ABG pO2 ABG HCO3 ABG O2 Saturation ABG Base Excess ABG Hemoglobin VBG pH Oxyhemoglobin Sodium Potassium Chloride Carbon Dioxide BUN Creatinine Glucose POC Glucose 137 H 142 H 129 H Lactic Acid Calcium Phosphorus Total Bilirubin AST ALT C-Reactive Protein Total Protein Albumin Triglycerides Amylase Lipase Urine WBC (Auto) Vancomycin Trough Crossmatch 01/14/18 01/14/18 01/14/18 04:30 04:30 05:31 WBC 16.5 H RBC 3.55 L Hgb 11.7 L Hct 35.1 L MCV 99 H MCH 33 H MCHC RDW 15.4 H Plt Count Lymph % (Auto) [place] % (Auto) Eos % (Auto) [place] # Eos # Baso # Seg Neutrophils % Seg Neuts % (Manual) Lymphocytes % (Manual) Monocytes % (Manual) Eosinophils % (Manual) Nucleated RBC % Seg Neutrophils # Seg Neutrophils # Man Lymphocytes # (Manual) Monocytes # (Manual) Eosinophils # (Manual) APTT POC ABG pH ABG pH POC ABG pCO2 POC ABG pO2 ABG pO2 ABG HCO3 ABG O2 Saturation ABG Base Excess ABG Hemoglobin VBG pH Oxyhemoglobin Sodium Potassium Chloride 93.8 L Carbon Dioxide BUN Creatinine 0.5 L Glucose POC Glucose 119 H Lactic Acid Calcium Phosphorus Total Bilirubin AST ALT C-Reactive Protein Total Protein Albumin Triglycerides Amylase Lipase Urine WBC (Auto) Vancomycin Trough Crossmatch 01/14/18 01/14/18 01/14/18 10:08 17:27 22:07 WBC RBC Hgb Hct MCV MCH MCHC RDW Plt Count Lymph % (Auto) [place] % (Auto) Eos % (Auto) [place] # Eos # Baso # Seg Neutrophils % Seg Neuts % (Manual) Lymphocytes % (Manual) Monocytes % (Manual) Eosinophils % (Manual) Nucleated RBC % Seg Neutrophils # Seg Neutrophils # Man Lymphocytes # (Manual) Monocytes # (Manual) Eosinophils # (Manual) APTT POC ABG pH ABG pH POC ABG pCO2 POC ABG pO2 ABG pO2 ABG HCO3 ABG O2 Saturation ABG Base Excess ABG Hemoglobin VBG pH Oxyhemoglobin Sodium Potassium Chloride Carbon Dioxide BUN Creatinine Glucose POC Glucose 119 H 113 H 138 H Lactic Acid Calcium Phosphorus Total Bilirubin AST ALT C-Reactive Protein Total Protein Albumin Triglycerides Amylase Lipase Urine WBC (Auto) Vancomycin Trough Crossmatch 01/15/18 01/15/18 01/15/18 02:12 05:36 08:02 WBC 12.8 H RBC 3.41 L Hgb 11.1 L Hct 33.6 L MCV 99 H MCH 33 H MCHC RDW Plt Count Lymph % (Auto) [place] % (Auto) 7.8 H Eos % (Auto) [place] # 1.0 H Eos # Baso # Seg Neutrophils % 72.8 H Seg Neuts % (Manual) Lymphocytes % (Manual) Monocytes % (Manual) Eosinophils % (Manual) Nucleated RBC % Seg Neutrophils # 9.3 H Seg Neutrophils # Man Lymphocytes # (Manual) Monocytes # (Manual) Eosinophils # (Manual) APTT POC ABG pH ABG pH POC ABG pCO2 POC ABG pO2 ABG pO2 ABG HCO3 ABG O2 Saturation ABG Base Excess ABG Hemoglobin VBG pH Oxyhemoglobin Sodium Potassium Chloride Carbon Dioxide BUN Creatinine Glucose POC Glucose 147 H 138 H Lactic Acid Calcium Phosphorus Total Bilirubin AST ALT C-Reactive Protein Total Protein Albumin Triglycerides Amylase Lipase Urine WBC (Auto) Vancomycin Trough Crossmatch 01/15/18 01/15/18 01/15/18 08:02 10:05 12:06 WBC RBC Hgb Hct MCV MCH MCHC RDW Plt Count Lymph % (Auto) [place] % (Auto) Eos % (Auto) [place] # Eos # Baso # Seg Neutrophils % Seg Neuts % (Manual) Lymphocytes % (Manual) Monocytes % (Manual) Eosinophils % (Manual) Nucleated RBC % Seg Neutrophils # Seg Neutrophils # Man Lymphocytes # (Manual) Monocytes # (Manual) Eosinophils # (Manual) APTT POC ABG pH ABG pH POC ABG pCO2 POC ABG pO2 ABG pO2 ABG HCO3 ABG O2 Saturation ABG Base Excess ABG Hemoglobin VBG pH Oxyhemoglobin Sodium 136 L Potassium Chloride 94.9 L Carbon Dioxide BUN Creatinine 0.4 L Glucose 142 H POC Glucose 136 H 133 H Lactic Acid Calcium Phosphorus Total Bilirubin AST ALT C-Reactive Protein Total Protein Albumin Triglycerides Amylase Lipase Urine WBC (Auto) Vancomycin Trough Crossmatch 01/15/18 01/15/18 01/16/18 14:16 21:59 01:58 WBC RBC Hgb Hct MCV MCH MCHC RDW Plt Count Lymph % (Auto) [place] % (Auto) Eos % (Auto) [place] # Eos # Baso # Seg Neutrophils % Seg Neuts % (Manual) Lymphocytes % (Manual) Monocytes % (Manual) Eosinophils % (Manual) Nucleated RBC % Seg Neutrophils # Seg Neutrophils # Man Lymphocytes # (Manual) Monocytes # (Manual) Eosinophils # (Manual) APTT POC ABG pH ABG pH POC ABG pCO2 POC ABG pO2 ABG pO2 ABG HCO3 ABG O2 Saturation ABG Base Excess ABG Hemoglobin VBG pH Oxyhemoglobin Sodium Potassium Chloride Carbon Dioxide BUN Creatinine Glucose POC Glucose 123 H 134 H 143 H Lactic Acid Calcium Phosphorus Total Bilirubin AST ALT C-Reactive Protein Total Protein Albumin Triglycerides Amylase Lipase Urine WBC (Auto) Vancomycin Trough Crossmatch 01/16/18 01/16/18 01/16/18 05:29 10:13 14:04 WBC RBC Hgb Hct MCV MCH MCHC RDW Plt Count Lymph % (Auto) [place] % (Auto) Eos % (Auto) [place] # Eos # Baso # Seg Neutrophils % Seg Neuts % (Manual) Lymphocytes % (Manual) Monocytes % (Manual) Eosinophils % (Manual) Nucleated RBC % Seg Neutrophils # Seg Neutrophils # Man Lymphocytes # (Manual) Monocytes # (Manual) Eosinophils # (Manual) APTT POC ABG pH ABG pH POC ABG pCO2 POC ABG pO2 ABG pO2 ABG HCO3 ABG O2 Saturation ABG Base Excess ABG Hemoglobin VBG pH Oxyhemoglobin Sodium Potassium Chloride Carbon Dioxide BUN Creatinine Glucose POC Glucose 145 H 117 H 139 H Lactic Acid Calcium Phosphorus Total Bilirubin AST ALT C-Reactive Protein Total Protein Albumin Triglycerides Amylase Lipase Urine WBC (Auto) Vancomycin Trough Crossmatch 01/16/18 01/16/18 01/17/18 17:39 23:13 02:57 WBC RBC Hgb Hct MCV MCH MCHC RDW Plt Count Lymph % (Auto) [place] % (Auto) Eos % (Auto) [place] # Eos # Baso # Seg Neutrophils % Seg Neuts % (Manual) Lymphocytes % (Manual) Monocytes % (Manual) Eosinophils % (Manual) Nucleated RBC % Seg Neutrophils # Seg Neutrophils # Man Lymphocytes # (Manual) Monocytes # (Manual) Eosinophils # (Manual) APTT POC ABG pH ABG pH POC ABG pCO2 POC ABG pO2 ABG pO2 ABG HCO3 ABG O2 Saturation ABG Base Excess ABG Hemoglobin VBG pH Oxyhemoglobin Sodium Potassium Chloride Carbon Dioxide BUN Creatinine Glucose POC Glucose 138 H 142 H 125 H Lactic Acid Calcium Phosphorus Total Bilirubin AST ALT C-Reactive Protein Total Protein Albumin Triglycerides Amylase Lipase Urine WBC (Auto) Vancomycin Trough Crossmatch 01/17/18 01/17/18 01/17/18 06:48 07:00 07:00 WBC 13.2 H RBC 3.52 L Hgb 11.5 L Hct 35.0 L MCV 99 H MCH 33 H MCHC RDW Plt Count Lymph % (Auto) [place] % (Auto) 8.3 H Eos % (Auto) [place] # 1.1 H Eos # Baso # Seg Neutrophils % 70.2 H Seg Neuts % (Manual) Lymphocytes % (Manual) Monocytes % (Manual) Eosinophils % (Manual) Nucleated RBC % Seg Neutrophils # 9.2 H Seg Neutrophils # Man Lymphocytes # (Manual) Monocytes # (Manual) Eosinophils # (Manual) APTT POC ABG pH ABG pH POC ABG pCO2 POC ABG pO2 ABG pO2 ABG HCO3 ABG O2 Saturation ABG Base Excess ABG Hemoglobin VBG pH Oxyhemoglobin Sodium Potassium Chloride 95.5 L Carbon Dioxide BUN Creatinine 0.4 L Glucose 138 H POC Glucose 111 H Lactic Acid Calcium Phosphorus Total Bilirubin AST ALT C-Reactive Protein Total Protein Albumin Triglycerides Amylase Lipase Urine WBC (Auto) Vancomycin Trough Crossmatch 01/17/18 01/17/18 01/17/18 12:54 16:30 22:25 WBC RBC Hgb Hct MCV MCH MCHC RDW Plt Count Lymph % (Auto) [place] % (Auto) Eos % (Auto) [place] # Eos # Baso # Seg Neutrophils % Seg Neuts % (Manual) Lymphocytes % (Manual) Monocytes % (Manual) Eosinophils % (Manual) Nucleated RBC % Seg Neutrophils # Seg Neutrophils # Man Lymphocytes # (Manual) Monocytes # (Manual) Eosinophils # (Manual) APTT POC ABG pH ABG pH POC ABG pCO2 POC ABG pO2 ABG pO2 ABG HCO3 ABG O2 Saturation ABG Base Excess ABG Hemoglobin VBG pH Oxyhemoglobin Sodium Potassium Chloride Carbon Dioxide BUN Creatinine Glucose POC Glucose 164 H 151 H 164 H Lactic Acid Calcium Phosphorus Total Bilirubin AST ALT C-Reactive Protein Total Protein Albumin Triglycerides Amylase Lipase Urine WBC (Auto) Vancomycin Trough Crossmatch 01/18/18 01/18/18 02:55 05:55 WBC RBC Hgb Hct MCV MCH MCHC RDW Plt Count Lymph % (Auto) [place] % (Auto) Eos % (Auto) [place] # Eos # Baso # Seg Neutrophils % Seg Neuts % (Manual) Lymphocytes % (Manual) Monocytes % (Manual) Eosinophils % (Manual) Nucleated RBC % Seg Neutrophils # Seg Neutrophils # Man Lymphocytes # (Manual) Monocytes # (Manual) Eosinophils # (Manual) APTT POC ABG pH ABG pH POC ABG pCO2 POC ABG pO2 ABG pO2 ABG HCO3 ABG O2 Saturation ABG Base Excess ABG Hemoglobin VBG pH Oxyhemoglobin Sodium Potassium Chloride Carbon Dioxide BUN Creatinine Glucose POC Glucose 117 H 125 H Lactic Acid Calcium Phosphorus Total Bilirubin AST ALT C-Reactive Protein Total Protein Albumin Triglycerides Amylase Lipase Urine WBC (Auto) Vancomycin Trough Crossmatch Chest x-ray: report reviewed, image reviewed
--- NOTE | 2018-01-18 15:06 | Progress Note ---
Assessment and Plan Delirium - as needed haldol for now, cont restrain Dysphagia - likely from prolong intubation, failed swallow study - cont TF for now Acute hypoxic respiratory failure, resolved - suspected due to ARDS/aspiration pneumonia: - pulmonary following and required prolong intubation - s/p extubated on 01/15, cont frequent suction, nebs, Suspected ARDS: - Pulmonology is following, off vent now - CXR showing improvement Sepsis, Etiology most likely complicated H influenza bacteremia +/- pneumonia: - treated with IV antibiotics, - ID signed off, appreciate recommendation Alcohol abuse: cont thiamine, folate, taper librium Hypotension resolved with ivfs and iv steroids Thrombocytopenia, - severe most likely due to sepsis: now stable Hypernatremia - improved with free water with TF and hypotonic iv fluid hypokalemia, replaced DM type 2- cont long acting and SSI, lentus to 26 unit daily Moderate to Severe protein calorie malnutrition; nutrition supplements, tube feeding. hold oral diet as failed speech eval Anemia; s/p 1 Unit PRBC this admission. DVT prophylaxis: scd and lovenox Disposition: Home with family support Brief History: Patient is a 47 yo man with a history of tobacco dependency, alcohol abuse, dm type 2, hypertension and asthma who presented to [facility] ED with SOB and found to be severely hypoxic, failed bipap and was intubated. There is report of n/v during and after intubation. Hospitalist Physical GEN: no distress, HEENT: NCAT, pupils react, NG tube in place NECK: supple, CVS/HEART:regular, NORMAL S1S2, pulses present bilaterally CHEST/LUNGS: Symmetrical chest expansion, coarse BS bilaterally GI/Abdomen: soft, distended, good bowel sounds, no guarding or rebound EXT/Skin: no edema MSK: no joint effusion or tenderness Neuro: eyes wide open, follow commend, speaks fluently Psych: cooperative Subjective Date of service: 01/18/18 Principal diagnosis: ARDS,Respiratory failure,pneumonia Interval history: Pt seen and examined extubated 01/15/18 Still on tube feeding, failed speech eval cont to monitor at telemetry Objective - Constitutional Vitals: Vital Signs - 12hr 01/18/18 01/18/18 01/18/18 05:50 07:40 09:28 Temperature 97.7 F 98.2 F Pulse Rate 104 H 97 H 98 H Respiratory 20 20 Rate Blood Pressure 120/80 122/85 122/85 O2 Sat by Pulse 98 97 Oximetry 01/18/18 11:46 Temperature 98.6 F Pulse Rate 89 Respiratory 20 Rate Blood Pressure 112/76 O2 Sat by Pulse 97 Oximetry - Labs CBC & Chem 7: 01/17/18 07:00 01/17/18 07:00 Labs: Abnormal lab results 01/17/18 01/17/18 01/18/18 Range/Units 16:30 22:25 02:55 POC Glucose 151 H 164 H 117 H (70-105) 01/18/18 01/18/18 Range/Units 05:55 14:24 POC Glucose 125 H 150 H (70-105)
[2018-01-18] MEDS ORDERED: HALDOL IM PRN (17:40)
[2018-01-18] MEDS: LOVENOX SUB-Q SCH (21:13)
[2018-01-19] MEDS: LIBRIUM PO SCH ×4 (00:18→16:06)
[2018-01-19] MEDS: HumaLOG SUB-Q SCH ×6 (02:32→22:01)
[2018-01-19] MEDS: DUONEB *Not for PRN Use IH SCH ×3 (09:34→20:36)
[2018-01-19 09:52] LABS: BUN/Creatinine Ratio 38; Blood Urea Nitrogen 19 mg/dL (9-20); Calcium 10.3 mg/dL (8.4-10.2); Hemolysis Index 67
[2018-01-19] MEDS: PEPCID PO SCH ×2 (10:04→21:59)
[2018-01-19] MEDS: VITAMIN B-1 PO SCH (10:05)
[2018-01-19] MEDS: FOLVITE FEEDTUBE SCH (10:06)
[2018-01-19] MEDS: SODIUM CHLORIDE FLUSH SYRINGE 10 ML IV SCH ×2 (10:06→22:30)
[2018-01-19] MEDS: LOPRESSOR PO SCH ×2 (10:06→21:58)
[2018-01-19] MEDS: POTASSIUM CHLORIDE PO SCH (10:07)
[2018-01-19] MEDS: LANTUS SUB-Q SCH (10:09)
--- NOTE | 2018-01-19 14:26 | Progress Note ---
Assessment and Plan Delirium - as needed haldol for now, cont restrain Dysphagia - likely from prolong intubation, failed swallow study - cont TF for now, MBS tomorrow Acute hypoxic respiratory failure, resolved - suspected due to ARDS/aspiration pneumonia: - pulmonary following and required prolong intubation - s/p extubated on 01/15, cont frequent suction, nebs, Suspected ARDS: - Pulmonology is following, off vent now - CXR showing improvement Sepsis, Etiology most likely complicated H influenza bacteremia +/- pneumonia: - treated with IV antibiotics, - ID signed off, appreciate recommendation Alcohol abuse: cont thiamine, folate, taper librium Hypotension resolved with ivfs and iv steroids Thrombocytopenia, - severe most likely due to sepsis: now stable Hypernatremia - improved with free water with TF and hypotonic iv fluid hypokalemia, replaced. Will stop Kcl replacement as pt developed hyperkalemia DM type 2- cont long acting and SSI, lentus to 26 unit daily Moderate to Severe protein calorie malnutrition; nutrition supplements, tube feeding. hold oral diet as failed speech eval Anemia; s/p 1 Unit PRBC this admission. DVT prophylaxis: scd and lovenox Disposition: Home with family support Brief History: Patient is a 47 yo man with a history of tobacco dependency, alcohol abuse, dm type 2, hypertension and asthma who presented to [facility] ED with SOB and found to be severely hypoxic, failed bipap and was intubated. There is report of n/v during and after intubation. He had prolong intubation likely from ARDS. S/p extubation on on 01/15. Now dveloped dysphagia, MBS tomorrow. Hospitalist Physical GEN: no distress, HEENT: NCAT, pupils react, NG tube in place NECK: supple, CVS/HEART:regular, NORMAL S1S2, pulses present bilaterally CHEST/LUNGS: Symmetrical chest expansion, coarse BS bilaterally GI/Abdomen: soft, distended, good bowel sounds, no guarding or rebound EXT/Skin: no edema MSK: no joint effusion or tenderness Neuro: eyes wide open, follow commend, Psych: cooperative, but tries to climbed out from bed Subjective Date of service: 01/19/18 Principal diagnosis: ARDS,Respiratory failure,pneumonia Interval history: Pt seen and examined extubated 01/15/18 Still on tube feeding, plan for MBS tomorrow cont to monitor at telemetry updated at bedside Objective - Constitutional Vitals: Vital Signs - 12hr 01/19/18 01/19/18 01/19/18 07:15 07:25 07:30 Temperature 98.3 F 97.9 F Pulse Rate 96 H 101 H 67 Pulse Rate [ Anterior Bilateral Throughout] Pulse Rate [ From Monitor] Respiratory 99 H 20 Rate Respiratory Rate [Anterior Bilateral Throughout] Blood Pressure 120/80 Blood Pressure 114/73 [Left] O2 Sat by Pulse 20 L 98 98 Oximetry 01/19/18 01/19/18 01/19/18 09:34 09:45 10:00 Temperature Pulse Rate 104 H Pulse Rate [ 102 H 105 H Anterior Bilateral Throughout] Pulse Rate [ 104 H From Monitor] Respiratory 20 Rate Respiratory 18 20 Rate [Anterior Bilateral Throughout] Blood Pressure Blood Pressure [Left] O2 Sat by Pulse 97 96 Oximetry 01/19/18 10:06 Temperature Pulse Rate 99 H Pulse Rate [ Anterior Bilateral Throughout] Pulse Rate [ From Monitor] Respiratory Rate Respiratory Rate [Anterior Bilateral Throughout] Blood Pressure 120/80 Blood Pressure [Left] O2 Sat by Pulse Oximetry - Labs CBC & Chem 7: 01/19/18 14:45 01/19/18 09:00 Labs: Abnormal lab results 01/18/18 01/18/18 01/18/18 Range/Units 11:52 12:40 21:24 Sodium (137-145) mmol/L Potassium (3.6-5.0) mmol/L Chloride (98-107) mmol/L Creatinine (0.8-1.5) mg/dL Glucose (75-100) mg/dL POC Glucose 135 H 136 H 152 H (70-105) Calcium (8.4-10.2) mg/dL 01/19/18 01/19/18 01/19/18 Range/Units 02:34 05:54 09:00 Sodium 136 L (137-145) mmol/L Potassium 5.1 H D (3.6-5.0) mmol/L Chloride 95.2 L (98-107) mmol/L Creatinine 0.5 L (0.8-1.5) mg/dL Glucose 133 H (75-100) mg/dL POC Glucose 147 H 182 H (70-105) Calcium 10.3 H (8.4-10.2) mg/dL 01/19/18 Range/Units 10:41 Sodium (137-145) mmol/L Potassium (3.6-5.0) mmol/L Chloride (98-107) mmol/L Creatinine (0.8-1.5) mg/dL Glucose (75-100) mg/dL POC Glucose 149 H (70-105) Calcium (8.4-10.2) mg/dL
[2018-01-19 15:00] LABS: Hemoglobin 11.8 gm/dl (11.8-15.2); Mean Corpuscular HGB Conc 34 % (32-34); Mean Corpuscular Hemoglobin 33 pg (28-32); Mean Corpuscular Volume 98 fl (84-94); Platelet Count 334 K/mm3 (140-440); Red Blood Count 3.57 M/mm3 (3.65-5.03); Red Cell Distribution Width 14.6 % (13.2-15.2)
--- NOTE | 2018-01-19 15:54 | Progress Note ---
Assessment and Plan Imp: 1. Haemophilus influenza pneumonia and bacteremia 2. Severe sepsis 3. ARDS 4. Acute respiratory failure, hypoxia 5. Hypernatremia Rec: 1. DVT and GI PPx, TFs 2. Finished ABX 3. HOB elevated/aspiration precautions; NPO until cleared by ST (asked to not give him any more water until cleared by ST, she understands) -> MBS tomorrow 4. PO/OT 5. Stable pulm-reeves Plan of care reviewed w/ patient/, they understand/agree Subjective Date of service: 01/19/18 Principal diagnosis: ARDS,Respiratory failure,pneumonia Interval history: No events. Cough better. SOB stable. No new complaints. More alert. Active Medications Acetaminophen (Tylenol) 650 mg PO Q6H PRN PRN Reason: Pain, Mild (1-3),temp 100.5or> Last Admin: 01/16/18 13:57 Dose: 650 mg Acetaminophen (Tylenol) 650 mg PA Q4H PRN PRN Reason: Pain, Mild (1-3) Albuterol (Proventil) 2.5 mg IH Q4HRT PRN PRN Reason: Shortness Of Breath Last Admin: 12/13/17 03:01 Dose: 2.5 mg Albuterol/Ipratropium (Duoneb *Not For Prn Use*) 1 ampul IH TIDRT [facility] Last Admin: 01/19/18 14:47 Dose: 1 ampul Lipase/Protease/Amylase (Pancrealex Dr 10,500 Unit) 1 each FEEDTUBE PRN PRN PRN Reason: For Clogged Feeding Tube Chlordiazepoxide HCl (Librium) 50 mg PO Q8H [facility] Last Admin: 01/19/18 10:12 Dose: 50 mg Dextrose (D50w (25gm) Syringe) 50 ml IV PRN PRN PRN Reason: Hypoglycemia Enoxaparin Sodium (Lovenox) 40 mg SUB-Q QDAY@2200 [facility] Last Admin: 01/18/18 21:13 Dose: 40 mg Famotidine (Pepcid) 20 mg PO BID [facility] Last Admin: 01/19/18 10:04 Dose: 20 mg Folic Acid (Folvite) 1 mg FEEDTUBE QDAY [facility] Last Admin: 01/19/18 10:06 Dose: 1 mg Haloperidol Lactate (Haldol) 5 mg IM Q6H PRN PRN Reason: Agitation Last Admin: 01/18/18 23:51 Dose: 5 mg Hydralazine HCl (Apresoline) 10 mg IV Q4HR PRN PRN Reason: SBP>170 Last Admin: 12/27/17 10:10 Dose: 10 mg Hydrophilic Ointment (Vaseline Lip Therapy) 1 applic TP DIRECT PRN PRN Reason: DRY LIPS Last Admin: 12/31/17 02:08 Dose: 1 applic Insulin Glargine (Lantus) 26 units SUB-Q DAILY [facility] Last Admin: 01/18/18 09:29 Dose: 26 units Insulin Human Lispro (Humalog) 0 unit SUB-Q Q4H [facility]; Protocol Last Admin: 01/19/18 10:03 Dose: Not Given Labetalol HCl (Normodyne) 20 mg IV Q6H PRN PRN Reason: Blood Pressure Metoprolol Tartrate (Lopressor) 50 mg PO BID [facility] Last Admin: 01/19/18 10:06 Dose: 50 mg Multi-Ingred Cream/Lotion/Oil/Oint (Artificial Tears Ophth Oint) 1 applic OU Q4HR PRN PRN Reason: Dry Eye(s) Ondansetron HCl (Zofran) 4 mg IV Q8H PRN PRN Reason: Nausea And Vomiting Last Admin: 01/01/18 04:20 Dose: 4 mg Potassium Chloride (Potassium Chloride) 20 meq PO QDAY [facility] Last Admin: 01/19/18 10:07 Dose: 20 meq Senna/Docusate Sodium (Senokot S) 2 tab PO BID PRN PRN Reason: Laxative Effect Simple Syrup (Simple Syrup) 15 ml FEEDTUBE PRN PRN PRN Reason: Hypoglycemia Last Admin: 12/31/17 02:07 Dose: 15 ml Simple Syrup (Simple Syrup) 30 ml FEEDTUBE PRN PRN PRN Reason: Hypoglycemia Sodium Bicarbonate (Sodium Bicarbonate) 325 mg FEEDTUBE PRN PRN PRN Reason: For Clogged Feeding Tube Sodium Chloride (Sodium Chloride Flush Syringe 10 Ml) 10 ml IV BID [facility] Last Admin: 01/18/18 21:30 Dose: 10 ml Sodium Chloride (Sodium Chloride Flush Syringe 10 Ml) 10 ml IV PRN PRN PRN Reason: LINE FLUSH Last Admin: 01/14/18 04:20 Dose: 10 ml Thiamine HCl (Vitamin B-1) 100 mg PO QDAY [facility] Last Admin: 01/19/18 10:05 Dose: 100 mg Objective Vital Signs - 12hr 01/19/18 01/19/18 01/19/18 07:15 07:25 07:30 Temperature 98.3 F 97.9 F Pulse Rate 96 H 101 H 67 Pulse Rate [ Anterior Bilateral Throughout] Pulse Rate [ From Monitor] Respiratory 99 H 20 Rate Respiratory Rate [Anterior Bilateral Throughout] Blood Pressure 120/80 Blood Pressure 114/73 [Left] O2 Sat by Pulse 20 L 98 98 Oximetry 01/19/18 01/19/18 01/19/18 09:34 09:45 10:00 Temperature Pulse Rate 104 H Pulse Rate [ 102 H 105 H Anterior Bilateral Throughout] Pulse Rate [ 104 H From Monitor] Respiratory 20 Rate Respiratory 18 20 Rate [Anterior Bilateral Throughout] Blood Pressure Blood Pressure [Left] O2 Sat by Pulse 97 96 Oximetry 01/19/18 10:06 Temperature Pulse Rate 99 H Pulse Rate [ Anterior Bilateral Throughout] Pulse Rate [ From Monitor] Respiratory Rate Respiratory Rate [Anterior Bilateral Throughout] Blood Pressure 120/80 Blood Pressure [Left] O2 Sat by Pulse Oximetry Constitutional: no acute distress, alert Eyes: non-icteric ENT: oropharynx moist Neck: supple Effort: normal (unlabored) Ascultation: Bilateral: rhonchi (sporadic) Cardiovascular: regular rate and rhythm (no mrg) Gastrointestinal: normoactive bowel sounds, soft, non-tender, non-distended Integumentary: normal Extremities: no cyanosis, no edema, pink and warm, no ischemia or petechiae Neurologic: normal mental status, non-focal exam, pupils equal and round, CN II- XII normal Psychiatric: mood appropriate, affect normal CBC and BMP: 01/19/18 14:45 01/19/18 09:00 ABG, PT/INR, D-dimer: ABG POC ABG pH 7.503 (7.35-7.45) H 12/25/17 03:38 ABG pH 7.441 pH Units (7.350-7.450) 01/06/18 03:14 POC ABG pCO2 35.8 (35-45) 12/25/17 03:38 ABG pCO2 43.2 mm Hg 01/06/18 03:14 POC ABG pO2 66 (80-105) L 12/25/17 03:38 ABG pO2 84.9 mm Hg (80.0-90.0) 01/06/18 03:14 POC ABG HCO3 28.1 12/25/17 03:38 POC ABG Total CO2 29 12/25/17 03:38 POC ABG O2 Sat 95 12/25/17 03:38 ABG O2 Saturation 97.0 % (95.0-99.0) 01/06/18 03:14 PT/INR, D-dimer PT 14.9 Sec. (12.2-14.9) 12/15/17 04:05 INR 1.11 (0.87-1.13) 12/15/17 04:05 Abnormal lab findings: Abnormal Labs 12/12/17 12/12/17 12/12/17 18:57 19:02 19:02 WBC RBC Hgb Hct MCV 96 H MCH 34 H MCHC 35 H RDW Plt Count 46 L Lymph % (Auto) [place] % (Auto) Eos % (Auto) [place] # Eos # Baso # Seg Neutrophils % Seg Neuts % (Manual) 77.0 H Lymphocytes % (Manual) 13.0 L Monocytes % (Manual) Eosinophils % (Manual) Nucleated RBC % Seg Neutrophils # Seg Neutrophils # Man Lymphocytes # (Manual) 0.9 L Monocytes # (Manual) Eosinophils # (Manual) APTT POC ABG pH ABG pH POC ABG pCO2 POC ABG pO2 ABG pO2 ABG HCO3 ABG O2 Saturation ABG Base Excess ABG Hemoglobin VBG pH Oxyhemoglobin Sodium Potassium Chloride Carbon Dioxide BUN Creatinine Glucose POC Glucose 321 H Lactic Acid 4.00 H* Calcium Phosphorus Total Bilirubin AST ALT C-Reactive Protein Total Protein Albumin Triglycerides Amylase Lipase Urine WBC (Auto) Vancomycin Trough Crossmatch 12/12/17 12/12/17 12/12/17 19:02 19:18 20:55 WBC RBC Hgb Hct MCV MCH MCHC RDW Plt Count Lymph % (Auto) [place] % (Auto) Eos % (Auto) [place] # Eos # Baso # Seg Neutrophils % Seg Neuts % (Manual) Lymphocytes % (Manual) Monocytes % (Manual) Eosinophils % (Manual) Nucleated RBC % Seg Neutrophils # Seg Neutrophils # Man Lymphocytes # (Manual) Monocytes # (Manual) Eosinophils # (Manual) APTT POC ABG pH ABG pH POC ABG pCO2 POC ABG pO2 ABG pO2 ABG HCO3 ABG O2 Saturation ABG Base Excess ABG Hemoglobin VBG pH 7.472 H Oxyhemoglobin Sodium 124 L Potassium Chloride 80.0 L Carbon Dioxide 20 L BUN Creatinine Glucose 382 H POC Glucose 283 H Lactic Acid Calcium 8.1 L Phosphorus Total Bilirubin 4.60 H AST 93 H ALT 112 H C-Reactive Protein Total Protein Albumin 2.5 L Triglycerides Amylase Lipase Urine WBC (Auto) Vancomycin Trough Crossmatch 12/12/17 12/13/17 12/13/17 21:41 00:45 01:29 WBC RBC Hgb Hct MCV MCH MCHC RDW Plt Count Lymph % (Auto) [place] % (Auto) Eos % (Auto) [place] # Eos # Baso # Seg Neutrophils % Seg Neuts % (Manual) Lymphocytes % (Manual) Monocytes % (Manual) Eosinophils % (Manual) Nucleated RBC % Seg Neutrophils # Seg Neutrophils # Man Lymphocytes # (Manual) Monocytes # (Manual) Eosinophils # (Manual) APTT POC ABG pH ABG pH POC ABG pCO2 POC ABG pO2 ABG pO2 ABG HCO3 ABG O2 Saturation ABG Base Excess ABG Hemoglobin VBG pH Oxyhemoglobin Sodium Potassium Chloride Carbon Dioxide BUN Creatinine Glucose POC Glucose Lactic Acid 4.20 H* 2.70 H* 3.30 H* Calcium Phosphorus Total Bilirubin AST ALT C-Reactive Protein Total Protein Albumin Triglycerides Amylase Lipase Urine WBC (Auto) Vancomycin Trough Crossmatch 12/13/17 12/13/17 12/13/17 02:19 03:44 05:58 WBC RBC Hgb Hct MCV 97 H MCH 34 H MCHC 35 H RDW Plt Count 41 L Lymph % (Auto) [place] % (Auto) Eos % (Auto) [place] # Eos # Baso # Seg Neutrophils % Seg Neuts % (Manual) Lymphocytes % (Manual) 8.0 L Monocytes % (Manual) 8.0 H Eosinophils % (Manual) Nucleated RBC % Seg Neutrophils # Seg Neutrophils # Man Lymphocytes # (Manual) 0.6 L Monocytes # (Manual) Eosinophils # (Manual) APTT POC ABG pH 7.334 L ABG pH POC ABG pCO2 POC ABG pO2 43 L ABG pO2 ABG HCO3 ABG O2 Saturation ABG Base Excess ABG Hemoglobin VBG pH Oxyhemoglobin Sodium Potassium Chloride Carbon Dioxide BUN Creatinine Glucose POC Glucose Lactic Acid 2.60 H* Calcium Phosphorus Total Bilirubin AST ALT C-Reactive Protein Total Protein Albumin Triglycerides Amylase Lipase Urine WBC (Auto) Vancomycin Trough Crossmatch 12/13/17 12/13/17 12/13/17 05:58 05:58 05:58 WBC RBC Hgb Hct MCV MCH MCHC RDW Plt Count Lymph % (Auto) [place] % (Auto) Eos % (Auto) [place] # Eos # Baso # Seg Neutrophils % Seg Neuts % (Manual) Lymphocytes % (Manual) Monocytes % (Manual) Eosinophils % (Manual) Nucleated RBC % Seg Neutrophils # Seg Neutrophils # Man Lymphocytes # (Manual) Monocytes # (Manual) Eosinophils # (Manual) APTT POC ABG pH ABG pH POC ABG pCO2 POC ABG pO2 ABG pO2 ABG HCO3 ABG O2 Saturation ABG Base Excess ABG Hemoglobin VBG pH Oxyhemoglobin Sodium 132 L D Potassium Chloride 90.0 L Carbon Dioxide 20 L BUN Creatinine Glucose 346 H POC Glucose 298 H Lactic Acid 4.50 H* Calcium 8.2 L Phosphorus Total Bilirubin AST ALT C-Reactive Protein Total Protein Albumin Triglycerides Amylase Lipase Urine WBC (Auto) Vancomycin Trough Crossmatch 12/13/17 12/13/17 12/13/17 06:27 09:42 11:47 WBC RBC Hgb Hct MCV MCH MCHC RDW Plt Count Lymph % (Auto) [place] % (Auto) Eos % (Auto) [place] # Eos # Baso # Seg Neutrophils % Seg Neuts % (Manual) Lymphocytes % (Manual) Monocytes % (Manual) Eosinophils % (Manual) Nucleated RBC % Seg Neutrophils # Seg Neutrophils # Man Lymphocytes # (Manual) Monocytes # (Manual) Eosinophils # (Manual) APTT POC ABG pH 7.267 L 7.298 L ABG pH POC ABG pCO2 50.4 H 51.3 H POC ABG pO2 47 L 43 L ABG pO2 ABG HCO3 ABG O2 Saturation ABG Base Excess ABG Hemoglobin VBG pH Oxyhemoglobin Sodium Potassium Chloride Carbon Dioxide BUN Creatinine Glucose POC Glucose 376 H Lactic Acid Calcium Phosphorus Total Bilirubin AST ALT C-Reactive Protein Total Protein Albumin Triglycerides Amylase Lipase Urine WBC (Auto) Vancomycin Trough Crossmatch 12/13/17 12/13/17 12/13/17 12:03 13:47 13:47 WBC RBC Hgb Hct MCV MCH MCHC RDW Plt Count Lymph % (Auto) [place] % (Auto) Eos % (Auto) [place] # Eos # Baso # Seg Neutrophils % Seg Neuts % (Manual) Lymphocytes % (Manual) Monocytes % (Manual) Eosinophils % (Manual) Nucleated RBC % Seg Neutrophils # Seg Neutrophils # Man Lymphocytes # (Manual) Monocytes # (Manual) Eosinophils # (Manual) APTT POC ABG pH 7.264 L ABG pH POC ABG pCO2 54.9 H POC ABG pO2 55 L ABG pO2 ABG HCO3 ABG O2 Saturation ABG Base Excess ABG Hemoglobin VBG pH Oxyhemoglobin Sodium Potassium Chloride Carbon Dioxide BUN Creatinine Glucose POC Glucose Lactic Acid 2.80 H* Calcium Phosphorus Total Bilirubin AST ALT C-Reactive Protein Total Protein Albumin Triglycerides Amylase 20 L Lipase 9 L Urine WBC (Auto) Vancomycin Trough Crossmatch 12/13/17 12/13/17 12/13/17 15:36 17:39 21:47 WBC RBC Hgb Hct MCV MCH MCHC RDW Plt Count Lymph % (Auto) [place] % (Auto) Eos % (Auto) [place] # Eos # Baso # Seg Neutrophils % Seg Neuts % (Manual) Lymphocytes % (Manual) Monocytes % (Manual) Eosinophils % (Manual) Nucleated RBC % Seg Neutrophils # Seg Neutrophils # Man Lymphocytes # (Manual) Monocytes # (Manual) Eosinophils # (Manual) APTT POC ABG pH 7.229 L 7.225 L ABG pH POC ABG pCO2 60.9 H 66.3 H POC ABG pO2 42 L 41 L ABG pO2 ABG HCO3 ABG O2 Saturation ABG Base Excess ABG Hemoglobin VBG pH Oxyhemoglobin Sodium Potassium Chloride Carbon Dioxide BUN Creatinine Glucose POC Glucose 289 H Lactic Acid Calcium Phosphorus Total Bilirubin AST ALT C-Reactive Protein Total Protein Albumin Triglycerides Amylase Lipase Urine WBC (Auto) Vancomycin Trough Crossmatch 12/13/17 12/14/17 12/14/17 22:19 02:03 05:16 WBC RBC Hgb Hct MCV MCH MCHC RDW Plt Count Lymph % (Auto) [place] % (Auto) Eos % (Auto) [place] # Eos # Baso # Seg Neutrophils % Seg Neuts % (Manual) Lymphocytes % (Manual) Monocytes % (Manual) Eosinophils % (Manual) Nucleated RBC % Seg Neutrophils # Seg Neutrophils # Man Lymphocytes # (Manual) Monocytes # (Manual) Eosinophils # (Manual) APTT POC ABG pH 7.247 L ABG pH POC ABG pCO2 61.2 H POC ABG pO2 53 L ABG pO2 ABG HCO3 ABG O2 Saturation ABG Base Excess ABG Hemoglobin VBG pH Oxyhemoglobin Sodium Potassium Chloride Carbon Dioxide BUN Creatinine Glucose POC Glucose 274 H 295 H Lactic Acid Calcium Phosphorus Total Bilirubin AST ALT C-Reactive Protein Total Protein Albumin Triglycerides Amylase Lipase Urine WBC (Auto) Vancomycin Trough Crossmatch 12/14/17 12/14/17 12/14/17 05:32 12:04 16:22 WBC RBC Hgb Hct MCV MCH MCHC RDW Plt Count Lymph % (Auto) [place] % (Auto) Eos % (Auto) [place] # Eos # Baso # Seg Neutrophils % Seg Neuts % (Manual) Lymphocytes % (Manual) Monocytes % (Manual) Eosinophils % (Manual) Nucleated RBC % Seg Neutrophils # Seg Neutrophils # Man Lymphocytes # (Manual) Monocytes # (Manual) Eosinophils # (Manual) APTT POC ABG pH ABG pH POC ABG pCO2 POC ABG pO2 ABG pO2 ABG HCO3 ABG O2 Saturation ABG Base Excess ABG Hemoglobin VBG pH Oxyhemoglobin Sodium Potassium Chloride Carbon Dioxide BUN Creatinine Glucose POC Glucose 230 H 241 H 231 H Lactic Acid Calcium Phosphorus Total Bilirubin AST ALT C-Reactive Protein Total Protein Albumin Triglycerides Amylase Lipase Urine WBC (Auto) Vancomycin Trough Crossmatch 12/14/17 12/15/17 12/15/17 21:29 02:29 03:25 WBC RBC Hgb Hct MCV MCH MCHC RDW Plt Count Lymph % (Auto) [place] % (Auto) Eos % (Auto) [place] # Eos # Baso # Seg Neutrophils % Seg Neuts % (Manual) Lymphocytes % (Manual) Monocytes % (Manual) Eosinophils % (Manual) Nucleated RBC % Seg Neutrophils # Seg Neutrophils # Man Lymphocytes # (Manual) Monocytes # (Manual) Eosinophils # (Manual) APTT POC ABG pH 7.330 L ABG pH POC ABG pCO2 55.3 H POC ABG pO2 59 L ABG pO2 ABG HCO3 ABG O2 Saturation ABG Base Excess ABG Hemoglobin VBG pH Oxyhemoglobin Sodium Potassium Chloride Carbon Dioxide BUN Creatinine Glucose POC Glucose 258 H 246 H Lactic Acid Calcium Phosphorus Total Bilirubin AST ALT C-Reactive Protein Total Protein Albumin Triglycerides Amylase Lipase Urine WBC (Auto) Vancomycin Trough Crossmatch 12/15/17 12/15/17 12/15/17 04:05 04:05 04:05 WBC 15.0 H RBC 3.40 L Hgb 11.3 L D Hct 33.8 L D MCV 100 H MCH 33 H MCHC RDW Plt Count 48 L Lymph % (Auto) [place] % (Auto) Eos % (Auto) [place] # Eos # Baso # Seg Neutrophils % Seg Neuts % (Manual) Lymphocytes % (Manual) 3.0 L Monocytes % (Manual) Eosinophils % (Manual) Nucleated RBC % 2.0 H Seg Neutrophils # Seg Neutrophils # Man Lymphocytes # (Manual) 0.5 L Monocytes # (Manual) 0.9 H Eosinophils # (Manual) APTT 20.9 L POC ABG pH ABG pH POC ABG pCO2 POC ABG pO2 ABG pO2 ABG HCO3 ABG O2 Saturation ABG Base Excess ABG Hemoglobin VBG pH Oxyhemoglobin Sodium Potassium Chloride Carbon Dioxide BUN 27 H Creatinine Glucose 258 H POC Glucose Lactic Acid Calcium 8.1 L Phosphorus Total Bilirubin AST ALT C-Reactive Protein Total Protein Albumin Triglycerides Amylase Lipase Urine WBC (Auto) Vancomycin Trough Crossmatch 12/15/17 12/15/17 12/15/17 05:32 11:17 14:59 WBC RBC Hgb Hct MCV MCH MCHC RDW Plt Count Lymph % (Auto) [place] % (Auto) Eos % (Auto) [place] # Eos # Baso # Seg Neutrophils % Seg Neuts % (Manual) Lymphocytes % (Manual) Monocytes % (Manual) Eosinophils % (Manual) Nucleated RBC % Seg Neutrophils # Seg Neutrophils # Man Lymphocytes # (Manual) Monocytes # (Manual) Eosinophils # (Manual) APTT POC ABG pH ABG pH POC ABG pCO2 POC ABG pO2 ABG pO2 ABG HCO3 ABG O2 Saturation ABG Base Excess ABG Hemoglobin VBG pH Oxyhemoglobin Sodium Potassium Chloride Carbon Dioxide BUN Creatinine Glucose POC Glucose 247 H 268 H 233 H Lactic Acid Calcium Phosphorus Total Bilirubin AST ALT C-Reactive Protein Total Protein Albumin Triglycerides Amylase Lipase Urine WBC (Auto) Vancomycin Trough Crossmatch 12/15/17 12/15/17 12/15/17 17:00 18:59 21:37 WBC RBC Hgb Hct MCV MCH MCHC RDW Plt Count Lymph % (Auto) [place] % (Auto) Eos % (Auto) [place] # Eos # Baso # Seg Neutrophils % Seg Neuts % (Manual) Lymphocytes % (Manual) Monocytes % (Manual) Eosinophils % (Manual) Nucleated RBC % Seg Neutrophils # Seg Neutrophils # Man Lymphocytes # (Manual) Monocytes # (Manual) Eosinophils # (Manual) APTT POC ABG pH ABG pH POC ABG pCO2 POC ABG pO2 ABG pO2 ABG HCO3 ABG O2 Saturation ABG Base Excess ABG Hemoglobin VBG pH Oxyhemoglobin Sodium Potassium Chloride Carbon Dioxide BUN Creatinine Glucose POC Glucose 195 H 208 H Lactic Acid Calcium Phosphorus Total Bilirubin AST ALT C-Reactive Protein Total Protein Albumin Triglycerides Amylase Lipase Urine WBC (Auto) 38.0 H Vancomycin Trough Crossmatch 12/16/17 12/16/17 12/16/17 03:17 03:33 04:18 WBC 16.4 H RBC 3.50 L Hgb 11.3 L Hct 35.4 L MCV 101 H MCH MCHC RDW Plt Count 54 L Lymph % (Auto) [place] % (Auto) Eos % (Auto) [place] # Eos # Baso # Seg Neutrophils % Seg Neuts % (Manual) Lymphocytes % (Manual) Monocytes % (Manual) Eosinophils % (Manual) Nucleated RBC % Seg Neutrophils # Seg Neutrophils # Man Lymphocytes # (Manual) Monocytes # (Manual) Eosinophils # (Manual) APTT POC ABG pH ABG pH POC ABG pCO2 47.7 H POC ABG pO2 ABG pO2 ABG HCO3 ABG O2 Saturation ABG Base Excess ABG Hemoglobin VBG pH Oxyhemoglobin Sodium Potassium Chloride Carbon Dioxide BUN Creatinine Glucose POC Glucose 227 H Lactic Acid Calcium Phosphorus Total Bilirubin AST ALT C-Reactive Protein Total Protein Albumin Triglycerides Amylase Lipase Urine WBC (Auto) Vancomycin Trough Crossmatch 12/16/17 12/16/17 12/16/17 04:18 05:08 10:01 WBC RBC Hgb Hct MCV MCH MCHC RDW Plt Count Lymph % (Auto) [place] % (Auto) Eos % (Auto) [place] # Eos # Baso # Seg Neutrophils % Seg Neuts % (Manual) Lymphocytes % (Manual) Monocytes % (Manual) Eosinophils % (Manual) Nucleated RBC % Seg Neutrophils # Seg Neutrophils # Man Lymphocytes # (Manual) Monocytes # (Manual) Eosinophils # (Manual) APTT POC ABG pH ABG pH POC ABG pCO2 POC ABG pO2 ABG pO2 ABG HCO3 ABG O2 Saturation ABG Base Excess ABG Hemoglobin VBG pH Oxyhemoglobin Sodium 147 H Potassium Chloride 107.4 H Carbon Dioxide BUN 28 H Creatinine Glucose 240 H POC Glucose 227 H 190 H Lactic Acid Calcium 8.3 L Phosphorus Total Bilirubin AST ALT C-Reactive Protein Total Protein Albumin Triglycerides Amylase Lipase Urine WBC (Auto) Vancomycin Trough Crossmatch 12/16/17 12/16/17 12/16/17 14:15 17:51 21:14 WBC RBC Hgb Hct MCV MCH MCHC RDW Plt Count Lymph % (Auto) [place] % (Auto) Eos % (Auto) [place] # Eos # Baso # Seg Neutrophils % Seg Neuts % (Manual) Lymphocytes % (Manual) Monocytes % (Manual) Eosinophils % (Manual) Nucleated RBC % Seg Neutrophils # Seg Neutrophils # Man Lymphocytes # (Manual) Monocytes # (Manual) Eosinophils # (Manual) APTT POC ABG pH ABG pH POC ABG pCO2 POC ABG pO2 ABG pO2 ABG HCO3 ABG O2 Saturation ABG Base Excess ABG Hemoglobin VBG pH Oxyhemoglobin Sodium Potassium Chloride Carbon Dioxide BUN Creatinine Glucose POC Glucose 279 H 272 H 260 H Lactic Acid Calcium Phosphorus Total Bilirubin AST ALT C-Reactive Protein Total Protein Albumin Triglycerides Amylase Lipase Urine WBC (Auto) Vancomycin Trough Crossmatch 12/17/17 12/17/17 12/17/17 02:41 04:28 04:28 WBC 19.1 H RBC 3.50 L Hgb 11.4 L Hct 35.3 L MCV 101 H MCH 33 H MCHC RDW Plt Count 65 L Lymph % (Auto) [place] % (Auto) Eos % (Auto) [place] # Eos # Baso # Seg Neutrophils % Seg Neuts % (Manual) Lymphocytes % (Manual) Monocytes % (Manual) Eosinophils % (Manual) Nucleated RBC % Seg Neutrophils # Seg Neutrophils # Man Lymphocytes # (Manual) Monocytes # (Manual) Eosinophils # (Manual) APTT POC ABG pH ABG pH POC ABG pCO2 POC ABG pO2 ABG pO2 ABG HCO3 ABG O2 Saturation ABG Base Excess ABG Hemoglobin VBG pH Oxyhemoglobin Sodium 153 H Potassium Chloride 111.2 H Carbon Dioxide 31 H BUN 28 H Creatinine Glucose 248 H POC Glucose 300 H Lactic Acid Calcium Phosphorus Total Bilirubin AST ALT C-Reactive Protein Total Protein Albumin Triglycerides Amylase Lipase Urine WBC (Auto) Vancomycin Trough Crossmatch 12/17/17 12/17/17 12/17/17 05:15 05:38 10:16 WBC RBC Hgb Hct MCV MCH MCHC RDW Plt Count Lymph % (Auto) [place] % (Auto) Eos % (Auto) [place] # Eos # Baso # Seg Neutrophils % Seg Neuts % (Manual) Lymphocytes % (Manual) Monocytes % (Manual) Eosinophils % (Manual) Nucleated RBC % Seg Neutrophils # Seg Neutrophils # Man Lymphocytes # (Manual) Monocytes # (Manual) Eosinophils # (Manual) APTT POC ABG pH ABG pH POC ABG pCO2 50.3 H POC ABG pO2 120 H ABG pO2 ABG HCO3 ABG O2 Saturation ABG Base Excess ABG Hemoglobin VBG pH Oxyhemoglobin Sodium Potassium Chloride Carbon Dioxide BUN Creatinine Glucose POC Glucose 231 H 196 H Lactic Acid Calcium Phosphorus Total Bilirubin AST ALT C-Reactive Protein Total Protein Albumin Triglycerides Amylase Lipase Urine WBC (Auto) Vancomycin Trough Crossmatch 12/17/17 12/17/17 12/17/17 14:22 18:14 21:35 WBC RBC Hgb Hct MCV MCH MCHC RDW Plt Count Lymph % (Auto) [place] % (Auto) Eos % (Auto) [place] # Eos # Baso # Seg Neutrophils % Seg Neuts % (Manual) Lymphocytes % (Manual) Monocytes % (Manual) Eosinophils % (Manual) Nucleated RBC % Seg Neutrophils # Seg Neutrophils # Man Lymphocytes # (Manual) Monocytes # (Manual) Eosinophils # (Manual) APTT POC ABG pH ABG pH POC ABG pCO2 POC ABG pO2 ABG pO2 ABG HCO3 ABG O2 Saturation ABG Base Excess ABG Hemoglobin VBG pH Oxyhemoglobin Sodium Potassium Chloride Carbon Dioxide BUN Creatinine Glucose POC Glucose 234 H 215 H 159 H Lactic Acid Calcium Phosphorus Total Bilirubin AST ALT C-Reactive Protein Total Protein Albumin Triglycerides Amylase Lipase Urine WBC (Auto) Vancomycin Trough Crossmatch 12/18/17 12/18/17 12/18/17 00:53 02:58 06:03 WBC RBC Hgb Hct MCV MCH MCHC RDW Plt Count Lymph % (Auto) [place] % (Auto) Eos % (Auto) [place] # Eos # Baso # Seg Neutrophils % Seg Neuts % (Manual) Lymphocytes % (Manual) Monocytes % (Manual) Eosinophils % (Manual) Nucleated RBC % Seg Neutrophils # Seg Neutrophils # Man Lymphocytes # (Manual) Monocytes # (Manual) Eosinophils # (Manual) APTT POC ABG pH ABG pH POC ABG pCO2 56.4 H POC ABG pO2 46 L ABG pO2 ABG HCO3 ABG O2 Saturation ABG Base Excess ABG Hemoglobin VBG pH Oxyhemoglobin Sodium Potassium Chloride Carbon Dioxide BUN Creatinine Glucose POC Glucose 176 H 143 H Lactic Acid Calcium Phosphorus Total Bilirubin AST ALT C-Reactive Protein Total Protein Albumin Triglycerides Amylase Lipase Urine WBC (Auto) Vancomycin Trough Crossmatch 12/18/17 12/18/17 12/18/17 07:59 09:20 09:20 WBC 27.4 H RBC 3.57 L Hgb 11.4 L Hct MCV 101 H MCH MCHC RDW Plt Count 64 L Lymph % (Auto) [place] % (Auto) Eos % (Auto) [place] # Eos # Baso # Seg Neutrophils % Seg Neuts % (Manual) Lymphocytes % (Manual) Monocytes % (Manual) Eosinophils % (Manual) Nucleated RBC % Seg Neutrophils # Seg Neutrophils # Man Lymphocytes # (Manual) Monocytes # (Manual) Eosinophils # (Manual) APTT POC ABG pH ABG pH POC ABG pCO2 POC ABG pO2 ABG pO2 ABG HCO3 ABG O2 Saturation ABG Base Excess ABG Hemoglobin VBG pH Oxyhemoglobin Sodium 152 H Potassium Chloride 107.9 H Carbon Dioxide 34 H BUN 23 H Creatinine 0.7 L Glucose 181 H POC Glucose 197 H Lactic Acid Calcium Phosphorus Total Bilirubin AST ALT C-Reactive Protein Total Protein Albumin Triglycerides Amylase Lipase Urine WBC (Auto) Vancomycin Trough Crossmatch 12/18/17 12/18/17 12/18/17 10:22 15:03 18:15 WBC RBC Hgb Hct MCV MCH MCHC RDW Plt Count Lymph % (Auto) [place] % (Auto) Eos % (Auto) [place] # Eos # Baso # Seg Neutrophils % Seg Neuts % (Manual) Lymphocytes % (Manual) Monocytes % (Manual) Eosinophils % (Manual) Nucleated RBC % Seg Neutrophils # Seg Neutrophils # Man Lymphocytes # (Manual) Monocytes # (Manual) Eosinophils # (Manual) APTT POC ABG pH ABG pH POC ABG pCO2 POC ABG pO2 ABG pO2 ABG HCO3 ABG O2 Saturation ABG Base Excess ABG Hemoglobin VBG pH Oxyhemoglobin Sodium Potassium Chloride Carbon Dioxide BUN Creatinine Glucose POC Glucose 195 H 225 H 238 H Lactic Acid Calcium Phosphorus Total Bilirubin AST ALT C-Reactive Protein Total Protein Albumin Triglycerides Amylase Lipase Urine WBC (Auto) Vancomycin Trough Crossmatch 12/18/17 12/18/17 12/19/17 18:29 21:53 00:18 WBC RBC Hgb Hct MCV MCH MCHC RDW Plt Count Lymph % (Auto) [place] % (Auto) Eos % (Auto) [place] # Eos # Baso # Seg Neutrophils % Seg Neuts % (Manual) Lymphocytes % (Manual) Monocytes % (Manual) Eosinophils % (Manual) Nucleated RBC % Seg Neutrophils # Seg Neutrophils # Man Lymphocytes # (Manual) Monocytes # (Manual) Eosinophils # (Manual) APTT POC ABG pH 7.476 H ABG pH POC ABG pCO2 50.4 H POC ABG pO2 158 H ABG pO2 ABG HCO3 ABG O2 Saturation ABG Base Excess ABG Hemoglobin VBG pH Oxyhemoglobin Sodium Potassium Chloride Carbon Dioxide BUN Creatinine Glucose POC Glucose 231 H 263 H Lactic Acid Calcium Phosphorus Total Bilirubin AST ALT C-Reactive Protein Total Protein Albumin Triglycerides Amylase Lipase Urine WBC (Auto) Vancomycin Trough Crossmatch 12/19/17 12/19/17 12/19/17 02:09 04:07 04:07 WBC 25.9 H RBC 3.25 L Hgb 10.6 L Hct 32.8 L MCV 101 H MCH 33 H MCHC RDW Plt Count 67 L Lymph % (Auto) [place] % (Auto) Eos % (Auto) [place] # Eos # Baso # Seg Neutrophils % Seg Neuts % (Manual) Lymphocytes % (Manual) 4.0 L Monocytes % (Manual) Eosinophils % (Manual) Nucleated RBC % Seg Neutrophils # Seg Neutrophils # Man 14.8 H Lymphocytes # (Manual) 1.0 L Monocytes # (Manual) Eosinophils # (Manual) APTT POC ABG pH ABG pH POC ABG pCO2 POC ABG pO2 ABG pO2 ABG HCO3 ABG O2 Saturation ABG Base Excess ABG Hemoglobin VBG pH Oxyhemoglobin Sodium 148 H Potassium Chloride Carbon Dioxide BUN 31 H Creatinine Glucose 314 H POC Glucose 300 H Lactic Acid Calcium 8.1 L Phosphorus Total Bilirubin AST ALT C-Reactive Protein Total Protein Albumin Triglycerides Amylase Lipase Urine WBC (Auto) Vancomycin Trough Crossmatch 12/19/17 12/19/17 12/19/17 05:15 05:41 07:57 WBC RBC Hgb Hct MCV MCH MCHC RDW Plt Count Lymph % (Auto) [place] % (Auto) Eos % (Auto) [place] # Eos # Baso # Seg Neutrophils % Seg Neuts % (Manual) Lymphocytes % (Manual) Monocytes % (Manual) Eosinophils % (Manual) Nucleated RBC % Seg Neutrophils # Seg Neutrophils # Man Lymphocytes # (Manual) Monocytes # (Manual) Eosinophils # (Manual) APTT POC ABG pH 7.507 H ABG pH POC ABG pCO2 POC ABG pO2 ABG pO2 ABG HCO3 ABG O2 Saturation ABG Base Excess ABG Hemoglobin VBG pH Oxyhemoglobin Sodium Potassium Chloride Carbon Dioxide BUN Creatinine Glucose POC Glucose 331 H 307 H Lactic Acid Calcium Phosphorus Total Bilirubin AST ALT C-Reactive Protein Total Protein Albumin Triglycerides Amylase Lipase Urine WBC (Auto) Vancomycin Trough Crossmatch 12/19/17 12/19/17 12/19/17 10:21 14:48 17:59 WBC RBC Hgb Hct MCV MCH MCHC RDW Plt Count Lymph % (Auto) [place] % (Auto) Eos % (Auto) [place] # Eos # Baso # Seg Neutrophils % Seg Neuts % (Manual) Lymphocytes % (Manual) Monocytes % (Manual) Eosinophils % (Manual) Nucleated RBC % Seg Neutrophils # Seg Neutrophils # Man Lymphocytes # (Manual) Monocytes # (Manual) Eosinophils # (Manual) APTT POC ABG pH ABG pH POC ABG pCO2 POC ABG pO2 ABG pO2 ABG HCO3 ABG O2 Saturation ABG Base Excess ABG Hemoglobin VBG pH Oxyhemoglobin Sodium Potassium Chloride Carbon Dioxide BUN Creatinine Glucose POC Glucose 358 H 327 H 355 H Lactic Acid Calcium Phosphorus Total Bilirubin AST ALT C-Reactive Protein Total Protein Albumin Triglycerides Amylase Lipase Urine WBC (Auto) Vancomycin Trough Crossmatch 12/19/17 12/20/17 12/20/17 21:38 02:21 03:42 WBC RBC Hgb Hct MCV MCH MCHC RDW Plt Count Lymph % (Auto) [place] % (Auto) Eos % (Auto) [place] # Eos # Baso # Seg Neutrophils % Seg Neuts % (Manual) Lymphocytes % (Manual) Monocytes % (Manual) Eosinophils % (Manual) Nucleated RBC % Seg Neutrophils # Seg Neutrophils # Man Lymphocytes # (Manual) Monocytes # (Manual) Eosinophils # (Manual) APTT POC ABG pH 7.494 H ABG pH POC ABG pCO2 POC ABG pO2 ABG pO2 ABG HCO3 ABG O2 Saturation ABG Base Excess ABG Hemoglobin VBG pH Oxyhemoglobin Sodium Potassium Chloride Carbon Dioxide BUN Creatinine Glucose POC Glucose 329 H 354 H Lactic Acid Calcium Phosphorus Total Bilirubin AST ALT C-Reactive Protein Total Protein Albumin Triglycerides Amylase Lipase Urine WBC (Auto) Vancomycin Trough Crossmatch 12/20/17 12/20/17 12/20/17 04:08 04:08 04:08 WBC 22.7 H RBC 3.26 L Hgb 10.6 L Hct 32.9 L MCV 101 H MCH 33 H MCHC RDW Plt Count 78 L Lymph % (Auto) [place] % (Auto) Eos % (Auto) [place] # Eos # Baso # Seg Neutrophils % Seg Neuts % (Manual) 80.0 H Lymphocytes % (Manual) 6.0 L Monocytes % (Manual) Eosinophils % (Manual) Nucleated RBC % Seg Neutrophils # Seg Neutrophils # Man 18.2 H Lymphocytes # (Manual) Monocytes # (Manual) Eosinophils # (Manual) APTT POC ABG pH ABG pH POC ABG pCO2 POC ABG pO2 ABG pO2 ABG HCO3 ABG O2 Saturation ABG Base Excess ABG Hemoglobin VBG pH Oxyhemoglobin Sodium Potassium Chloride Carbon Dioxide 31 H BUN 30 H Creatinine 0.6 L Glucose 365 H POC Glucose Lactic Acid Calcium Phosphorus Total Bilirubin AST ALT C-Reactive Protein Total Protein Albumin Triglycerides 981 H Amylase Lipase Urine WBC (Auto) Vancomycin Trough Crossmatch 12/20/17 12/20/17 12/20/17 05:15 10:47 13:40 WBC RBC Hgb Hct MCV MCH MCHC RDW Plt Count Lymph % (Auto) [place] % (Auto) Eos % (Auto) [place] # Eos # Baso # Seg Neutrophils % Seg Neuts % (Manual) Lymphocytes % (Manual) Monocytes % (Manual) Eosinophils % (Manual) Nucleated RBC % Seg Neutrophils # Seg Neutrophils # Man Lymphocytes # (Manual) Monocytes # (Manual) Eosinophils # (Manual) APTT POC ABG pH ABG pH POC ABG pCO2 POC ABG pO2 ABG pO2 ABG HCO3 ABG O2 Saturation ABG Base Excess ABG Hemoglobin VBG pH Oxyhemoglobin Sodium Potassium Chloride Carbon Dioxide BUN Creatinine Glucose POC Glucose 342 H 330 H Lactic Acid Calcium Phosphorus Total Bilirubin AST ALT C-Reactive Protein 7.10 H Total Protein Albumin Triglycerides Amylase Lipase Urine WBC (Auto) Vancomycin Trough Crossmatch 12/20/17 12/20/17 12/20/17 13:40 14:52 16:55 WBC RBC Hgb Hct MCV MCH MCHC RDW Plt Count Lymph % (Auto) [place] % (Auto) Eos % (Auto) [place] # Eos # Baso # Seg Neutrophils % Seg Neuts % (Manual) Lymphocytes % (Manual) Monocytes % (Manual) Eosinophils % (Manual) Nucleated RBC % Seg Neutrophils # Seg Neutrophils # Man Lymphocytes # (Manual) Monocytes # (Manual) Eosinophils # (Manual) APTT POC ABG pH 7.484 H ABG pH POC ABG pCO2 POC ABG pO2 ABG pO2 ABG HCO3 ABG O2 Saturation ABG Base Excess ABG Hemoglobin VBG pH Oxyhemoglobin Sodium Potassium Chloride Carbon Dioxide BUN Creatinine Glucose POC Glucose 293 H Lactic Acid Calcium Phosphorus Total Bilirubin AST ALT C-Reactive Protein Total Protein Albumin Triglycerides 1042 H Amylase Lipase Urine WBC (Auto) Vancomycin Trough Crossmatch 12/20/17 12/20/17 12/21/17 18:00 21:58 02:05 WBC RBC Hgb Hct MCV MCH MCHC RDW Plt Count Lymph % (Auto) [place] % (Auto) Eos % (Auto) [place] # Eos # Baso # Seg Neutrophils % Seg Neuts % (Manual) Lymphocytes % (Manual) Monocytes % (Manual) Eosinophils % (Manual) Nucleated RBC % Seg Neutrophils # Seg Neutrophils # Man Lymphocytes # (Manual) Monocytes # (Manual) Eosinophils # (Manual) APTT POC ABG pH ABG pH POC ABG pCO2 POC ABG pO2 ABG pO2 ABG HCO3 ABG O2 Saturation ABG Base Excess ABG Hemoglobin VBG pH Oxyhemoglobin Sodium Potassium Chloride Carbon Dioxide BUN Creatinine Glucose POC Glucose 268 H 272 H 229 H Lactic Acid Calcium Phosphorus Total Bilirubin AST ALT C-Reactive Protein Total Protein Albumin Triglycerides Amylase Lipase Urine WBC (Auto) Vancomycin Trough Crossmatch 12/21/17 12/21/17 12/21/17 03:59 06:23 08:57 WBC RBC Hgb Hct MCV MCH MCHC RDW Plt Count Lymph % (Auto) [place] % (Auto) Eos % (Auto) [place] # Eos # Baso # Seg Neutrophils % Seg Neuts % (Manual) Lymphocytes % (Manual) Monocytes % (Manual) Eosinophils % (Manual) Nucleated RBC % Seg Neutrophils # Seg Neutrophils # Man Lymphocytes # (Manual) Monocytes # (Manual) Eosinophils # (Manual) APTT POC ABG pH 7.474 H ABG pH POC ABG pCO2 POC ABG pO2 71 L ABG pO2 ABG HCO3 ABG O2 Saturation ABG Base Excess ABG Hemoglobin VBG pH Oxyhemoglobin Sodium Potassium Chloride Carbon Dioxide BUN Creatinine Glucose POC Glucose 182 H 217 H Lactic Acid Calcium Phosphorus Total Bilirubin AST ALT C-Reactive Protein Total Protein Albumin Triglycerides Amylase Lipase Urine WBC (Auto) Vancomycin Trough Crossmatch 12/21/17 12/21/17 12/21/17 13:59 18:00 21:20 WBC RBC Hgb Hct MCV MCH MCHC RDW Plt Count Lymph % (Auto) [place] % (Auto) Eos % (Auto) [place] # Eos # Baso # Seg Neutrophils % Seg Neuts % (Manual) Lymphocytes % (Manual) Monocytes % (Manual) Eosinophils % (Manual) Nucleated RBC % Seg Neutrophils # Seg Neutrophils # Man Lymphocytes # (Manual) Monocytes # (Manual) Eosinophils # (Manual) APTT POC ABG pH ABG pH POC ABG pCO2 POC ABG pO2 ABG pO2 ABG HCO3 ABG O2 Saturation ABG Base Excess ABG Hemoglobin VBG pH Oxyhemoglobin Sodium Potassium Chloride Carbon Dioxide BUN Creatinine Glucose POC Glucose 185 H 176 H 187 H Lactic Acid Calcium Phosphorus Total Bilirubin AST ALT C-Reactive Protein Total Protein Albumin Triglycerides Amylase Lipase Urine WBC (Auto) Vancomycin Trough Crossmatch 12/21/17 12/22/17 12/22/17 23:48 04:39 05:30 WBC RBC Hgb Hct MCV MCH MCHC RDW Plt Count Lymph % (Auto) [place] % (Auto) Eos % (Auto) [place] # Eos # Baso # Seg Neutrophils % Seg Neuts % (Manual) Lymphocytes % (Manual) Monocytes % (Manual) Eosinophils % (Manual) Nucleated RBC % Seg Neutrophils # Seg Neutrophils # Man Lymphocytes # (Manual) Monocytes # (Manual) Eosinophils # (Manual) APTT POC ABG pH 7.528 H ABG pH POC ABG pCO2 POC ABG pO2 63 L ABG pO2 ABG HCO3 ABG O2 Saturation ABG Base Excess ABG Hemoglobin VBG pH Oxyhemoglobin Sodium Potassium Chloride Carbon Dioxide BUN Creatinine Glucose POC Glucose 126 H 117 H Lactic Acid Calcium Phosphorus Total Bilirubin AST ALT C-Reactive Protein Total Protein Albumin Triglycerides Amylase Lipase Urine WBC (Auto) Vancomycin Trough Crossmatch 12/22/17 12/22/17 12/22/17 09:12 10:34 10:34 WBC 29.5 H RBC 3.44 L Hgb 11.2 L Hct 34.2 L MCV 99 H MCH 33 H MCHC RDW 13.1 L Plt Count 97 L Lymph % (Auto) [place] % (Auto) Eos % (Auto) [place] # Eos # Baso # Seg Neutrophils % Seg Neuts % (Manual) 88.0 H Lymphocytes % (Manual) 5.0 L Monocytes % (Manual) Eosinophils % (Manual) Nucleated RBC % Seg Neutrophils # Seg Neutrophils # Man 26.0 H Lymphocytes # (Manual) Monocytes # (Manual) Eosinophils # (Manual) APTT POC ABG pH ABG pH POC ABG pCO2 POC ABG pO2 ABG pO2 ABG HCO3 ABG O2 Saturation ABG Base Excess ABG Hemoglobin VBG pH Oxyhemoglobin Sodium 146 H Potassium 3.1 L Chloride Carbon Dioxide BUN 25 H Creatinine 0.7 L Glucose 146 H POC Glucose 168 H Lactic Acid Calcium 8.1 L Phosphorus Total Bilirubin AST ALT C-Reactive Protein Total Protein Albumin Triglycerides Amylase Lipase Urine WBC (Auto) Vancomycin Trough Crossmatch 12/22/17 12/22/17 12/22/17 14:51 17:21 21:43 WBC RBC Hgb Hct MCV MCH MCHC RDW Plt Count Lymph % (Auto) [place] % (Auto) Eos % (Auto) [place] # Eos # Baso # Seg Neutrophils % Seg Neuts % (Manual) Lymphocytes % (Manual) Monocytes % (Manual) Eosinophils % (Manual) Nucleated RBC % Seg Neutrophils # Seg Neutrophils # Man Lymphocytes # (Manual) Monocytes # (Manual) Eosinophils # (Manual) APTT POC ABG pH ABG pH POC ABG pCO2 POC ABG pO2 ABG pO2 ABG HCO3 ABG O2 Saturation ABG Base Excess ABG Hemoglobin VBG pH Oxyhemoglobin Sodium Potassium Chloride Carbon Dioxide BUN Creatinine Glucose POC Glucose 125 H 110 H 153 H Lactic Acid Calcium Phosphorus Total Bilirubin AST ALT C-Reactive Protein Total Protein Albumin Triglycerides Amylase Lipase Urine WBC (Auto) Vancomycin Trough Crossmatch 12/23/17 12/23/17 12/23/17 04:33 05:28 09:25 WBC 31.4 H RBC 3.05 L Hgb 9.8 L Hct 30.2 L MCV 99 H MCH MCHC RDW 12.9 L Plt Count 101 L Lymph % (Auto) [place] % (Auto) Eos % (Auto) [place] # Eos # Baso # Seg Neutrophils % Seg Neuts % (Manual) 97 H Lymphocytes % (Manual) 2 L Monocytes % (Manual) Eosinophils % (Manual) Nucleated RBC % Seg Neutrophils # Seg Neutrophils # Man 31.1 H Lymphocytes # (Manual) 0.5 L Monocytes # (Manual) Eosinophils # (Manual) APTT POC ABG pH 7.573 H ABG pH POC ABG pCO2 31.0 L POC ABG pO2 63 L ABG pO2 ABG HCO3 ABG O2 Saturation ABG Base Excess ABG Hemoglobin VBG pH Oxyhemoglobin Sodium Potassium Chloride Carbon Dioxide BUN Creatinine Glucose POC Glucose 124 H Lactic Acid Calcium Phosphorus Total Bilirubin AST ALT C-Reactive Protein Total Protein Albumin Triglycerides Amylase Lipase Urine WBC (Auto) Vancomycin Trough Crossmatch 12/23/17 12/23/17 12/23/17 09:25 10:08 14:20 WBC RBC Hgb Hct MCV MCH MCHC RDW Plt Count Lymph % (Auto) [place] % (Auto) Eos % (Auto) [place] # Eos # Baso # Seg Neutrophils % Seg Neuts % (Manual) Lymphocytes % (Manual) Monocytes % (Manual) Eosinophils % (Manual) Nucleated RBC % Seg Neutrophils # Seg Neutrophils # Man Lymphocytes # (Manual) Monocytes # (Manual) Eosinophils # (Manual) APTT POC ABG pH ABG pH POC ABG pCO2 POC ABG pO2 ABG pO2 ABG HCO3 ABG O2 Saturation ABG Base Excess ABG Hemoglobin VBG pH Oxyhemoglobin Sodium Potassium 3.1 L Chloride Carbon Dioxide BUN Creatinine 0.6 L Glucose 169 H POC Glucose 171 H 211 H Lactic Acid Calcium 7.9 L Phosphorus Total Bilirubin AST ALT C-Reactive Protein Total Protein Albumin Triglycerides Amylase Lipase Urine WBC (Auto) Vancomycin Trough Crossmatch 12/23/17 12/23/17 12/24/17 18:59 21:49 01:47 WBC RBC Hgb Hct MCV MCH MCHC RDW Plt Count Lymph % (Auto) [place] % (Auto) Eos % (Auto) [place] # Eos # Baso # Seg Neutrophils % Seg Neuts % (Manual) Lymphocytes % (Manual) Monocytes % (Manual) Eosinophils % (Manual) Nucleated RBC % Seg Neutrophils # Seg Neutrophils # Man Lymphocytes # (Manual) Monocytes # (Manual) Eosinophils # (Manual) APTT POC ABG pH ABG pH POC ABG pCO2 POC ABG pO2 ABG pO2 ABG HCO3 ABG O2 Saturation ABG Base Excess ABG Hemoglobin VBG pH Oxyhemoglobin Sodium Potassium Chloride Carbon Dioxide BUN Creatinine Glucose POC Glucose 175 H 146 H 143 H Lactic Acid Calcium Phosphorus Total Bilirubin AST ALT C-Reactive Protein Total Protein Albumin Triglycerides Amylase Lipase Urine WBC (Auto) Vancomycin Trough Crossmatch 12/24/17 12/24/17 12/24/17 05:40 10:12 13:12 WBC RBC Hgb Hct MCV MCH MCHC RDW Plt Count Lymph % (Auto) [place] % (Auto) Eos % (Auto) [place] # Eos # Baso # Seg Neutrophils % Seg Neuts % (Manual) Lymphocytes % (Manual) Monocytes % (Manual) Eosinophils % (Manual) Nucleated RBC % Seg Neutrophils # Seg Neutrophils # Man Lymphocytes # (Manual) Monocytes # (Manual) Eosinophils # (Manual) APTT POC ABG pH 7.558 H ABG pH POC ABG pCO2 27.6 L POC ABG pO2 71 L ABG pO2 ABG HCO3 ABG O2 Saturation ABG Base Excess ABG Hemoglobin VBG pH Oxyhemoglobin Sodium Potassium Chloride Carbon Dioxide BUN Creatinine Glucose POC Glucose 118 H 111 H Lactic Acid Calcium Phosphorus Total Bilirubin AST ALT C-Reactive Protein Total Protein Albumin Triglycerides Amylase Lipase Urine WBC (Auto) Vancomycin Trough Crossmatch 12/24/17 12/24/17 12/24/17 16:26 20:44 21:49 WBC RBC Hgb Hct MCV MCH MCHC RDW Plt Count Lymph % (Auto) [place] % (Auto) Eos % (Auto) [place] # Eos # Baso # Seg Neutrophils % Seg Neuts % (Manual) Lymphocytes % (Manual) Monocytes % (Manual) Eosinophils % (Manual) Nucleated RBC % Seg Neutrophils # Seg Neutrophils # Man Lymphocytes # (Manual) Monocytes # (Manual) Eosinophils # (Manual) APTT POC ABG pH ABG pH POC ABG pCO2 POC ABG pO2 ABG pO2 ABG HCO3 ABG O2 Saturation ABG Base Excess ABG Hemoglobin VBG pH Oxyhemoglobin Sodium Potassium Chloride Carbon Dioxide BUN Creatinine Glucose POC Glucose 113 H 124 H 115 H Lactic Acid Calcium Phosphorus Total Bilirubin AST ALT C-Reactive Protein Total Protein Albumin Triglycerides Amylase Lipase Urine WBC (Auto) Vancomycin Trough Crossmatch 12/24/17 12/25/17 12/25/17 Unknown 02:26 03:38 WBC RBC Hgb Hct MCV MCH MCHC RDW Plt Count Lymph % (Auto) [place] % (Auto) Eos % (Auto) [place] # Eos # Baso # Seg Neutrophils % Seg Neuts % (Manual) Lymphocytes % (Manual) Monocytes % (Manual) Eosinophils % (Manual) Nucleated RBC % Seg Neutrophils # Seg Neutrophils # Man Lymphocytes # (Manual) Monocytes # (Manual) Eosinophils # (Manual) APTT POC ABG pH 7.503 H ABG pH POC ABG pCO2 POC ABG pO2 66 L ABG pO2 ABG HCO3 ABG O2 Saturation ABG Base Excess ABG Hemoglobin VBG pH Oxyhemoglobin Sodium Potassium 3.0 L Chloride Carbon Dioxide BUN Creatinine 0.5 L Glucose 166 H POC Glucose 106 H Lactic Acid Calcium 7.8 L Phosphorus Total Bilirubin AST ALT C-Reactive Protein Total Protein Albumin Triglycerides Amylase Lipase Urine WBC (Auto) Vancomycin Trough Crossmatch 12/25/17 12/25/17 12/25/17 04:58 12:58 15:06 WBC RBC Hgb Hct MCV MCH MCHC RDW Plt Count Lymph % (Auto) [place] % (Auto) Eos % (Auto) [place] # Eos # Baso # Seg Neutrophils % Seg Neuts % (Manual) Lymphocytes % (Manual) Monocytes % (Manual) Eosinophils % (Manual) Nucleated RBC % Seg Neutrophils # Seg Neutrophils # Man Lymphocytes # (Manual) Monocytes # (Manual) Eosinophils # (Manual) APTT POC ABG pH ABG pH POC ABG pCO2 POC ABG pO2 ABG pO2 ABG HCO3 ABG O2 Saturation ABG Base Excess ABG Hemoglobin VBG pH Oxyhemoglobin Sodium Potassium Chloride Carbon Dioxide BUN Creatinine Glucose POC Glucose 113 H 118 H Lactic Acid Calcium Phosphorus Total Bilirubin AST ALT C-Reactive Protein Total Protein Albumin Triglycerides Amylase Lipase Urine WBC (Auto) Vancomycin Trough 22.5 H Crossmatch 12/25/17 12/25/17 12/25/17 17:59 21:33 Unknown WBC 20.5 H RBC 2.75 L Hgb 9.1 L Hct 27.1 L MCV 99 H MCH 33 H MCHC RDW Plt Count 126 L Lymph % (Auto) [place] % (Auto) Eos % (Auto) [place] # Eos # Baso # Seg Neutrophils % Seg Neuts % (Manual) 89.0 H Lymphocytes % (Manual) 6.0 L Monocytes % (Manual) Eosinophils % (Manual) Nucleated RBC % Seg Neutrophils # Seg Neutrophils # Man 18.2 H Lymphocytes # (Manual) Monocytes # (Manual) Eosinophils # (Manual) APTT POC ABG pH ABG pH POC ABG pCO2 POC ABG pO2 ABG pO2 ABG HCO3 ABG O2 Saturation ABG Base Excess ABG Hemoglobin VBG pH Oxyhemoglobin Sodium Potassium Chloride Carbon Dioxide BUN Creatinine Glucose POC Glucose 145 H 167 H Lactic Acid Calcium Phosphorus Total Bilirubin AST ALT C-Reactive Protein Total Protein Albumin Triglycerides Amylase Lipase Urine WBC (Auto) Vancomycin Trough Crossmatch 12/25/17 12/26/17 12/26/17 Unknown 02:26 05:29 WBC RBC Hgb Hct MCV MCH MCHC RDW Plt Count Lymph % (Auto) [place] % (Auto) Eos % (Auto) [place] # Eos # Baso # Seg Neutrophils % Seg Neuts % (Manual) Lymphocytes % (Manual) Monocytes % (Manual) Eosinophils % (Manual) Nucleated RBC % Seg Neutrophils # Seg Neutrophils # Man Lymphocytes # (Manual) Monocytes # (Manual) Eosinophils # (Manual) APTT POC ABG pH ABG pH POC ABG pCO2 POC ABG pO2 ABG pO2 ABG HCO3 ABG O2 Saturation ABG Base Excess ABG Hemoglobin VBG pH Oxyhemoglobin Sodium Potassium 2.8 L* Chloride Carbon Dioxide BUN Creatinine 0.6 L Glucose POC Glucose 167 H 216 H Lactic Acid Calcium 7.4 L Phosphorus Total Bilirubin AST ALT C-Reactive Protein Total Protein Albumin Triglycerides Amylase Lipase Urine WBC (Auto) Vancomycin Trough Crossmatch 12/26/17 12/26/17 12/26/17 10:21 14:30 18:35 WBC RBC Hgb Hct MCV MCH MCHC RDW Plt Count Lymph % (Auto) [place] % (Auto) Eos % (Auto) [place] # Eos # Baso # Seg Neutrophils % Seg Neuts % (Manual) Lymphocytes % (Manual) Monocytes % (Manual) Eosinophils % (Manual) Nucleated RBC % Seg Neutrophils # Seg Neutrophils # Man Lymphocytes # (Manual) Monocytes # (Manual) Eosinophils # (Manual) APTT POC ABG pH ABG pH POC ABG pCO2 POC ABG pO2 ABG pO2 ABG HCO3 ABG O2 Saturation ABG Base Excess ABG Hemoglobin VBG pH Oxyhemoglobin Sodium Potassium Chloride Carbon Dioxide BUN Creatinine Glucose POC Glucose 164 H 157 H 146 H Lactic Acid Calcium Phosphorus Total Bilirubin AST ALT C-Reactive Protein Total Protein Albumin Triglycerides Amylase Lipase Urine WBC (Auto) Vancomycin Trough Crossmatch 12/26/17 12/26/17 12/27/17 21:21 Unknown 01:54 WBC RBC Hgb Hct MCV MCH MCHC RDW Plt Count Lymph % (Auto) [place] % (Auto) Eos % (Auto) [place] # Eos # Baso # Seg Neutrophils % Seg Neuts % (Manual) Lymphocytes % (Manual) Monocytes % (Manual) Eosinophils % (Manual) Nucleated RBC % Seg Neutrophils # Seg Neutrophils # Man Lymphocytes # (Manual) Monocytes # (Manual) Eosinophils # (Manual) APTT POC ABG pH ABG pH POC ABG pCO2 POC ABG pO2 ABG pO2 ABG HCO3 ABG O2 Saturation ABG Base Excess ABG Hemoglobin VBG pH Oxyhemoglobin Sodium Potassium 3.0 L Chloride Carbon Dioxide BUN Creatinine 0.5 L Glucose 166 H POC Glucose 132 H 157 H Lactic Acid Calcium 7.8 L Phosphorus Total Bilirubin AST ALT C-Reactive Protein Total Protein Albumin Triglycerides Amylase Lipase Urine WBC (Auto) Vancomycin Trough Crossmatch 12/27/17 12/27/17 12/27/17 05:20 05:20 05:44 WBC 26.4 H RBC 2.83 L Hgb 9.3 L Hct 27.6 L MCV 98 H MCH 33 H MCHC RDW Plt Count Lymph % (Auto) [place] % (Auto) Eos % (Auto) [place] # Eos # Baso # Seg Neutrophils % Seg Neuts % (Manual) 85.0 H Lymphocytes % (Manual) 5.0 L Monocytes % (Manual) Eosinophils % (Manual) Nucleated RBC % Seg Neutrophils # Seg Neutrophils # Man 22.4 H Lymphocytes # (Manual) Monocytes # (Manual) Eosinophils # (Manual) 0.5 H APTT POC ABG pH ABG pH POC ABG pCO2 POC ABG pO2 ABG pO2 ABG HCO3 ABG O2 Saturation ABG Base Excess ABG Hemoglobin VBG pH Oxyhemoglobin Sodium Potassium 2.3 L* D Chloride Carbon Dioxide BUN 7 L Creatinine 0.6 L Glucose 123 H POC Glucose 128 H Lactic Acid Calcium 8.1 L Phosphorus Total Bilirubin AST ALT C-Reactive Protein Total Protein Albumin Triglycerides Amylase Lipase Urine WBC (Auto) Vancomycin Trough Crossmatch 12/27/17 12/27/17 12/27/17 10:04 14:44 15:30 WBC RBC Hgb Hct MCV MCH MCHC RDW Plt Count Lymph % (Auto) [place] % (Auto) Eos % (Auto) [place] # Eos # Baso # Seg Neutrophils % Seg Neuts % (Manual) Lymphocytes % (Manual) Monocytes % (Manual) Eosinophils % (Manual) Nucleated RBC % Seg Neutrophils # Seg Neutrophils # Man Lymphocytes # (Manual) Monocytes # (Manual) Eosinophils # (Manual) APTT POC ABG pH ABG pH POC ABG pCO2 POC ABG pO2 ABG pO2 ABG HCO3 ABG O2 Saturation ABG Base Excess ABG Hemoglobin VBG pH Oxyhemoglobin Sodium Potassium 3.1 L D Chloride Carbon Dioxide BUN Creatinine Glucose POC Glucose 115 H 128 H Lactic Acid Calcium Phosphorus Total Bilirubin AST ALT C-Reactive Protein Total Protein Albumin Triglycerides Amylase Lipase Urine WBC (Auto) Vancomycin Trough Crossmatch 12/28/17 12/28/17 12/28/17 00:39 02:13 05:17 WBC RBC Hgb Hct MCV MCH MCHC RDW Plt Count Lymph % (Auto) [place] % (Auto) Eos % (Auto) [place] # Eos # Baso # Seg Neutrophils % Seg Neuts % (Manual) Lymphocytes % (Manual) Monocytes % (Manual) Eosinophils % (Manual) Nucleated RBC % Seg Neutrophils # Seg Neutrophils # Man Lymphocytes # (Manual) Monocytes # (Manual) Eosinophils # (Manual) APTT POC ABG pH ABG pH 7.497 H POC ABG pCO2 POC ABG pO2 ABG pO2 71.4 L ABG HCO3 29.9 H ABG O2 Saturation ABG Base Excess 6.2 H ABG Hemoglobin 7.9 L VBG pH Oxyhemoglobin 94.9 L Sodium Potassium Chloride Carbon Dioxide BUN Creatinine Glucose POC Glucose 112 H 108 H Lactic Acid Calcium Phosphorus Total Bilirubin AST ALT C-Reactive Protein Total Protein Albumin Triglycerides Amylase Lipase Urine WBC (Auto) Vancomycin Trough Crossmatch 12/28/17 12/28/17 12/28/17 08:47 08:47 09:10 WBC 28.1 H RBC 2.76 L Hgb 9.1 L Hct 27.0 L MCV 98 H MCH 33 H MCHC RDW Plt Count Lymph % (Auto) [place] % (Auto) Eos % (Auto) [place] # Eos # Baso # Seg Neutrophils % Seg Neuts % (Manual) Lymphocytes % (Manual) Monocytes % (Manual) Eosinophils % (Manual) Nucleated RBC % Seg Neutrophils # Seg Neutrophils # Man Lymphocytes # (Manual) Monocytes # (Manual) Eosinophils # (Manual) APTT POC ABG pH ABG pH POC ABG pCO2 POC ABG pO2 ABG pO2 ABG HCO3 ABG O2 Saturation ABG Base Excess ABG Hemoglobin VBG pH Oxyhemoglobin Sodium Potassium 2.2 L* D Chloride Carbon Dioxide BUN 5 L Creatinine 0.5 L Glucose 106 H POC Glucose Lactic Acid Calcium 8.3 L Phosphorus 2.20 L Total Bilirubin AST ALT C-Reactive Protein Total Protein Albumin Triglycerides Amylase Lipase Urine WBC (Auto) Vancomycin Trough Crossmatch 12/28/17 12/28/17 12/28/17 13:28 14:22 18:48 WBC RBC Hgb Hct MCV MCH MCHC RDW Plt Count Lymph % (Auto) [place] % (Auto) Eos % (Auto) [place] # Eos # Baso # Seg Neutrophils % Seg Neuts % (Manual) Lymphocytes % (Manual) Monocytes % (Manual) Eosinophils % (Manual) Nucleated RBC % Seg Neutrophils # Seg Neutrophils # Man Lymphocytes # (Manual) Monocytes # (Manual) Eosinophils # (Manual) APTT POC ABG pH ABG pH 7.476 H POC ABG pCO2 POC ABG pO2 ABG pO2 167.7 H ABG HCO3 30.9 H ABG O2 Saturation 99.1 H ABG Base Excess 6.7 H ABG Hemoglobin 8.5 L VBG pH Oxyhemoglobin Sodium Potassium Chloride Carbon Dioxide BUN Creatinine Glucose POC Glucose 141 H 129 H Lactic Acid Calcium Phosphorus Total Bilirubin AST ALT C-Reactive Protein Total Protein Albumin Triglycerides Amylase Lipase Urine WBC (Auto) Vancomycin Trough Crossmatch 12/28/17 12/29/17 12/29/17 21:22 02:45 05:11 WBC RBC Hgb Hct MCV MCH MCHC RDW Plt Count Lymph % (Auto) [place] % (Auto) Eos % (Auto) [place] # Eos # Baso # Seg Neutrophils % Seg Neuts % (Manual) Lymphocytes % (Manual) Monocytes % (Manual) Eosinophils % (Manual) Nucleated RBC % Seg Neutrophils # Seg Neutrophils # Man Lymphocytes # (Manual) Monocytes # (Manual) Eosinophils # (Manual) APTT POC ABG pH ABG pH POC ABG pCO2 POC ABG pO2 ABG pO2 ABG HCO3 ABG O2 Saturation ABG Base Excess ABG Hemoglobin VBG pH Oxyhemoglobin Sodium Potassium Chloride Carbon Dioxide BUN Creatinine Glucose POC Glucose 123 H 138 H 138 H Lactic Acid Calcium Phosphorus Total Bilirubin AST ALT C-Reactive Protein Total Protein Albumin Triglycerides Amylase Lipase Urine WBC (Auto) Vancomycin Trough Crossmatch 12/29/17 12/29/17 12/29/17 05:50 08:04 08:04 WBC 20.8 H RBC 2.26 L Hgb 7.5 L Hct 22.7 L MCV 100 H MCH 33 H MCHC RDW Plt Count Lymph % (Auto) [place] % (Auto) Eos % (Auto) [place] # Eos # Baso # Seg Neutrophils % Seg Neuts % (Manual) 93.0 H Lymphocytes % (Manual) 2.0 L Monocytes % (Manual) Eosinophils % (Manual) Nucleated RBC % Seg Neutrophils # Seg Neutrophils # Man 19.3 H Lymphocytes # (Manual) 0.4 L Monocytes # (Manual) Eosinophils # (Manual) 0.7 H APTT POC ABG pH ABG pH 7.467 H POC ABG pCO2 POC ABG pO2 ABG pO2 ABG HCO3 28.2 H ABG O2 Saturation ABG Base Excess 4.0 H ABG Hemoglobin < 5.1 L VBG pH Oxyhemoglobin Sodium Potassium 3.0 L D Chloride Carbon Dioxide BUN Creatinine 0.5 L Glucose 147 H POC Glucose Lactic Acid Calcium 7.8 L Phosphorus Total Bilirubin AST ALT C-Reactive Protein Total Protein 5.6 L Albumin 2.4 L Triglycerides Amylase Lipase Urine WBC (Auto) Vancomycin Trough Crossmatch 12/29/17 12/29/17 12/29/17 08:20 10:59 14:09 WBC RBC Hgb Hct MCV MCH MCHC RDW Plt Count Lymph % (Auto) [place] % (Auto) Eos % (Auto) [place] # Eos # Baso # Seg Neutrophils % Seg Neuts % (Manual) Lymphocytes % (Manual) Monocytes % (Manual) Eosinophils % (Manual) Nucleated RBC % Seg Neutrophils # Seg Neutrophils # Man Lymphocytes # (Manual) Monocytes # (Manual) Eosinophils # (Manual) APTT POC ABG pH ABG pH POC ABG pCO2 POC ABG pO2 ABG pO2 ABG HCO3 ABG O2 Saturation ABG Base Excess ABG Hemoglobin VBG pH Oxyhemoglobin Sodium Potassium Chloride Carbon Dioxide BUN Creatinine Glucose POC Glucose 153 H 186 H 183 H Lactic Acid Calcium Phosphorus Total Bilirubin AST ALT C-Reactive Protein Total Protein Albumin Triglycerides Amylase Lipase Urine WBC (Auto) Vancomycin Trough Crossmatch 12/29/17 12/29/17 12/29/17 18:03 22:05 22:56 WBC RBC Hgb Hct MCV MCH MCHC RDW Plt Count Lymph % (Auto) [place] % (Auto) Eos % (Auto) [place] # Eos # Baso # Seg Neutrophils % Seg Neuts % (Manual) Lymphocytes % (Manual) Monocytes % (Manual) Eosinophils % (Manual) Nucleated RBC % Seg Neutrophils # Seg Neutrophils # Man Lymphocytes # (Manual) Monocytes # (Manual) Eosinophils # (Manual) APTT POC ABG pH ABG pH POC ABG pCO2 POC ABG pO2 ABG pO2 ABG HCO3 ABG O2 Saturation ABG Base Excess ABG Hemoglobin VBG pH Oxyhemoglobin Sodium Potassium Chloride Carbon Dioxide BUN Creatinine Glucose POC Glucose 159 H 146 H 179 H Lactic Acid Calcium Phosphorus Total Bilirubin AST ALT C-Reactive Protein Total Protein Albumin Triglycerides Amylase Lipase Urine WBC (Auto) Vancomycin Trough Crossmatch 12/30/17 12/30/17 12/30/17 02:03 04:50 04:50 WBC 18.3 H RBC 2.22 L Hgb 7.4 L Hct 23.0 L MCV 104 H MCH 33 H MCHC RDW Plt Count 137 L Lymph % (Auto) 9.0 L [place] % (Auto) Eos % (Auto) [place] # Eos # 0.5 H Baso # Seg Neutrophils % 84.9 H Seg Neuts % (Manual) Lymphocytes % (Manual) Monocytes % (Manual) Eosinophils % (Manual) Nucleated RBC % Seg Neutrophils # 15.6 H Seg Neutrophils # Man Lymphocytes # (Manual) Monocytes # (Manual) Eosinophils # (Manual) APTT POC ABG pH ABG pH POC ABG pCO2 POC ABG pO2 ABG pO2 ABG HCO3 ABG O2 Saturation ABG Base Excess ABG Hemoglobin VBG pH Oxyhemoglobin Sodium 147 H Potassium 3.1 L D Chloride 107.5 H Carbon Dioxide BUN Creatinine 0.5 L Glucose 120 H POC Glucose 118 H Lactic Acid Calcium 7.4 L Phosphorus Total Bilirubin AST ALT C-Reactive Protein Total Protein Albumin Triglycerides Amylase Lipase Urine WBC (Auto) Vancomycin Trough Crossmatch 12/30/17 12/30/17 12/30/17 05:04 13:53 17:33 WBC RBC Hgb Hct MCV MCH MCHC RDW Plt Count Lymph % (Auto) [place] % (Auto) Eos % (Auto) [place] # Eos # Baso # Seg Neutrophils % Seg Neuts % (Manual) Lymphocytes % (Manual) Monocytes % (Manual) Eosinophils % (Manual) Nucleated RBC % Seg Neutrophils # Seg Neutrophils # Man Lymphocytes # (Manual) Monocytes # (Manual) Eosinophils # (Manual) APTT POC ABG pH ABG pH POC ABG pCO2 POC ABG pO2 ABG pO2 ABG HCO3 ABG O2 Saturation ABG Base Excess ABG Hemoglobin VBG pH Oxyhemoglobin Sodium Potassium Chloride Carbon Dioxide BUN Creatinine Glucose POC Glucose 150 H 113 H 145 H Lactic Acid Calcium Phosphorus Total Bilirubin AST ALT C-Reactive Protein Total Protein Albumin Triglycerides Amylase Lipase Urine WBC (Auto) Vancomycin Trough Crossmatch 12/31/17 12/31/17 12/31/17 01:54 03:15 03:15 WBC 17.1 H RBC 2.08 L Hgb 6.9 L Hct 20.6 L MCV 99 H MCH 33 H MCHC RDW 13.1 L Plt Count Lymph % (Auto) 10.5 L [place] % (Auto) Eos % (Auto) [place] # Eos # 0.6 H Baso # Seg Neutrophils % 82.3 H Seg Neuts % (Manual) Lymphocytes % (Manual) Monocytes % (Manual) Eosinophils % (Manual) Nucleated RBC % Seg Neutrophils # 14.0 H Seg Neutrophils # Man Lymphocytes # (Manual) Monocytes # (Manual) Eosinophils # (Manual) APTT POC ABG pH ABG pH POC ABG pCO2 POC ABG pO2 ABG pO2 ABG HCO3 ABG O2 Saturation ABG Base Excess ABG Hemoglobin VBG pH Oxyhemoglobin Sodium Potassium 3.5 L Chloride Carbon Dioxide BUN Creatinine 0.6 L Glucose POC Glucose 69 L Lactic Acid Calcium 7.8 L Phosphorus Total Bilirubin AST ALT C-Reactive Protein Total Protein Albumin Triglycerides Amylase Lipase Urine WBC (Auto) Vancomycin Trough Crossmatch 12/31/17 12/31/17 12/31/17 05:15 09:25 10:17 WBC RBC Hgb Hct MCV MCH MCHC RDW Plt Count Lymph % (Auto) [place] % (Auto) Eos % (Auto) [place] # Eos # Baso # Seg Neutrophils % Seg Neuts % (Manual) Lymphocytes % (Manual) Monocytes % (Manual) Eosinophils % (Manual) Nucleated RBC % Seg Neutrophils # Seg Neutrophils # Man Lymphocytes # (Manual) Monocytes # (Manual) Eosinophils # (Manual) APTT POC ABG pH ABG pH 7.516 H POC ABG pCO2 POC ABG pO2 ABG pO2 69.2 L ABG HCO3 28.7 H ABG O2 Saturation ABG Base Excess 5.3 H ABG Hemoglobin 6.6 L VBG pH Oxyhemoglobin 93.8 L Sodium Potassium Chloride Carbon Dioxide BUN Creatinine Glucose POC Glucose 143 H Lactic Acid Calcium Phosphorus Total Bilirubin AST ALT C-Reactive Protein Total Protein Albumin Triglycerides Amylase Lipase Urine WBC (Auto) Vancomycin Trough Crossmatch See Detail 12/31/17 12/31/17 12/31/17 14:20 18:30 21:40 WBC RBC Hgb Hct MCV MCH MCHC RDW Plt Count Lymph % (Auto) [place] % (Auto) Eos % (Auto) [place] # Eos # Baso # Seg Neutrophils % Seg Neuts % (Manual) Lymphocytes % (Manual) Monocytes % (Manual) Eosinophils % (Manual) Nucleated RBC % Seg Neutrophils # Seg Neutrophils # Man Lymphocytes # (Manual) Monocytes # (Manual) Eosinophils # (Manual) APTT POC ABG pH ABG pH POC ABG pCO2 POC ABG pO2 ABG pO2 ABG HCO3 ABG O2 Saturation ABG Base Excess ABG Hemoglobin VBG pH Oxyhemoglobin Sodium Potassium Chloride Carbon Dioxide BUN Creatinine Glucose POC Glucose 175 H 137 H 182 H Lactic Acid Calcium Phosphorus Total Bilirubin AST ALT C-Reactive Protein Total Protein Albumin Triglycerides Amylase Lipase Urine WBC (Auto) Vancomycin Trough Crossmatch 12/31/17 01/01/18 01/01/18 23:34 02:09 04:00 WBC 16.4 H RBC 2.41 L Hgb 7.8 L Hct 23.6 L MCV 98 H MCH 33 H MCHC RDW Plt Count Lymph % (Auto) 10.7 L [place] % (Auto) Eos % (Auto) [place] # Eos # 0.7 H Baso # 0.2 H Seg Neutrophils % 79.0 H Seg Neuts % (Manual) Lymphocytes % (Manual) Monocytes % (Manual) Eosinophils % (Manual) Nucleated RBC % Seg Neutrophils # 12.9 H Seg Neutrophils # Man Lymphocytes # (Manual) Monocytes # (Manual) Eosinophils # (Manual) APTT POC ABG pH ABG pH POC ABG pCO2 POC ABG pO2 ABG pO2 ABG HCO3 ABG O2 Saturation ABG Base Excess ABG Hemoglobin VBG pH Oxyhemoglobin Sodium Potassium Chloride Carbon Dioxide BUN Creatinine Glucose POC Glucose 132 H 117 H Lactic Acid Calcium Phosphorus Total Bilirubin AST ALT C-Reactive Protein Total Protein Albumin Triglycerides Amylase Lipase Urine WBC (Auto) Vancomycin Trough Crossmatch 01/01/18 01/01/18 01/01/18 04:00 04:04 05:32 WBC RBC Hgb Hct MCV MCH MCHC RDW Plt Count Lymph % (Auto) [place] % (Auto) Eos % (Auto) [place] # Eos # Baso # Seg Neutrophils % Seg Neuts % (Manual) Lymphocytes % (Manual) Monocytes % (Manual) Eosinophils % (Manual) Nucleated RBC % Seg Neutrophils # Seg Neutrophils # Man Lymphocytes # (Manual) Monocytes # (Manual) Eosinophils # (Manual) APTT POC ABG pH ABG pH 7.458 H POC ABG pCO2 POC ABG pO2 ABG pO2 67.5 L ABG HCO3 27.5 H ABG O2 Saturation 94.4 L ABG Base Excess 3.4 H ABG Hemoglobin 7.8 L VBG pH Oxyhemoglobin 92.1 L Sodium Potassium Chloride Carbon Dioxide BUN Creatinine 0.4 L Glucose 129 H POC Glucose 129 H Lactic Acid Calcium 7.9 L Phosphorus Total Bilirubin AST ALT C-Reactive Protein Total Protein Albumin Triglycerides Amylase Lipase Urine WBC (Auto) Vancomycin Trough Crossmatch 01/01/18 01/01/18 01/01/18 10:10 12:38 17:27 WBC RBC Hgb Hct MCV MCH MCHC RDW Plt Count Lymph % (Auto) [place] % (Auto) Eos % (Auto) [place] # Eos # Baso # Seg Neutrophils % Seg Neuts % (Manual) Lymphocytes % (Manual) Monocytes % (Manual) Eosinophils % (Manual) Nucleated RBC % Seg Neutrophils # Seg Neutrophils # Man Lymphocytes # (Manual) Monocytes # (Manual) Eosinophils # (Manual) APTT POC ABG pH ABG pH POC ABG pCO2 POC ABG pO2 ABG pO2 ABG HCO3 ABG O2 Saturation ABG Base Excess ABG Hemoglobin VBG pH Oxyhemoglobin Sodium Potassium Chloride Carbon Dioxide BUN Creatinine Glucose POC Glucose 155 H 179 H 152 H Lactic Acid Calcium Phosphorus Total Bilirubin AST ALT C-Reactive Protein Total Protein Albumin Triglycerides Amylase Lipase Urine WBC (Auto) Vancomycin Trough Crossmatch 01/01/18 01/02/18 01/02/18 21:36 01:42 04:10 WBC 12.1 H RBC 2.29 L Hgb 7.5 L Hct 22.7 L MCV 99 H MCH 33 H MCHC RDW Plt Count Lymph % (Auto) [place] % (Auto) Eos % (Auto) 5.5 H [place] # 0.9 H Eos # 0.7 H Baso # Seg Neutrophils % Seg Neuts % (Manual) Lymphocytes % (Manual) Monocytes % (Manual) Eosinophils % (Manual) Nucleated RBC % Seg Neutrophils # 8.3 H Seg Neutrophils # Man Lymphocytes # (Manual) Monocytes # (Manual) Eosinophils # (Manual) APTT POC ABG pH ABG pH POC ABG pCO2 POC ABG pO2 ABG pO2 ABG HCO3 ABG O2 Saturation ABG Base Excess ABG Hemoglobin VBG pH Oxyhemoglobin Sodium Potassium Chloride Carbon Dioxide BUN Creatinine Glucose POC Glucose 118 H 117 H Lactic Acid Calcium Phosphorus Total Bilirubin AST ALT C-Reactive Protein Total Protein Albumin Triglycerides Amylase Lipase Urine WBC (Auto) Vancomycin Trough Crossmatch 01/02/18 01/02/18 01/02/18 04:10 04:57 13:42 WBC RBC Hgb Hct MCV MCH MCHC RDW Plt Count Lymph % (Auto) [place] % (Auto) Eos % (Auto) [place] # Eos # Baso # Seg Neutrophils % Seg Neuts % (Manual) Lymphocytes % (Manual) Monocytes % (Manual) Eosinophils % (Manual) Nucleated RBC % Seg Neutrophils # Seg Neutrophils # Man Lymphocytes # (Manual) Monocytes # (Manual) Eosinophils # (Manual) APTT POC ABG pH ABG pH POC ABG pCO2 POC ABG pO2 ABG pO2 ABG HCO3 ABG O2 Saturation ABG Base Excess ABG Hemoglobin VBG pH Oxyhemoglobin Sodium Potassium Chloride 97.0 L Carbon Dioxide BUN Creatinine 0.4 L Glucose POC Glucose 107 H 133 H Lactic Acid Calcium 8.1 L Phosphorus Total Bilirubin AST ALT C-Reactive Protein Total Protein 6.0 L Albumin 2.5 L Triglycerides Amylase Lipase Urine WBC (Auto) Vancomycin Trough Crossmatch 01/02/18 01/02/18 01/03/18 17:33 22:11 02:18 WBC RBC Hgb Hct MCV MCH MCHC RDW Plt Count Lymph % (Auto) [place] % (Auto) Eos % (Auto) [place] # Eos # Baso # Seg Neutrophils % Seg Neuts % (Manual) Lymphocytes % (Manual) Monocytes % (Manual) Eosinophils % (Manual) Nucleated RBC % Seg Neutrophils # Seg Neutrophils # Man Lymphocytes # (Manual) Monocytes # (Manual) Eosinophils # (Manual) APTT POC ABG pH ABG pH POC ABG pCO2 POC ABG pO2 ABG pO2 ABG HCO3 ABG O2 Saturation ABG Base Excess ABG Hemoglobin VBG pH Oxyhemoglobin Sodium Potassium Chloride Carbon Dioxide BUN Creatinine Glucose POC Glucose 146 H 171 H 162 H Lactic Acid Calcium Phosphorus Total Bilirubin AST ALT C-Reactive Protein Total Protein Albumin Triglycerides Amylase Lipase Urine WBC (Auto) Vancomycin Trough Crossmatch 01/03/18 01/03/18 01/03/18 04:56 05:21 17:20 WBC RBC Hgb Hct MCV MCH MCHC RDW Plt Count Lymph % (Auto) [place] % (Auto) Eos % (Auto) [place] # Eos # Baso # Seg Neutrophils % Seg Neuts % (Manual) Lymphocytes % (Manual) Monocytes % (Manual) Eosinophils % (Manual) Nucleated RBC % Seg Neutrophils # Seg Neutrophils # Man Lymphocytes # (Manual) Monocytes # (Manual) Eosinophils # (Manual) APTT POC ABG pH ABG pH POC ABG pCO2 POC ABG pO2 ABG pO2 79.5 L ABG HCO3 31.4 H ABG O2 Saturation ABG Base Excess 6.3 H ABG Hemoglobin 10.4 L VBG pH Oxyhemoglobin 94.2 L Sodium Potassium Chloride Carbon Dioxide BUN Creatinine Glucose POC Glucose 163 H 153 H Lactic Acid Calcium Phosphorus Total Bilirubin AST ALT C-Reactive Protein Total Protein Albumin Triglycerides Amylase Lipase Urine WBC (Auto) Vancomycin Trough Crossmatch 01/03/18 01/03/18 01/04/18 17:50 19:52 00:40 WBC RBC Hgb Hct MCV MCH MCHC RDW Plt Count Lymph % (Auto) [place] % (Auto) Eos % (Auto) [place] # Eos # Baso # Seg Neutrophils % Seg Neuts % (Manual) Lymphocytes % (Manual) Monocytes % (Manual) Eosinophils % (Manual) Nucleated RBC % Seg Neutrophils # Seg Neutrophils # Man Lymphocytes # (Manual) Monocytes # (Manual) Eosinophils # (Manual) APTT POC ABG pH ABG pH POC ABG pCO2 POC ABG pO2 ABG pO2 ABG HCO3 ABG O2 Saturation ABG Base Excess ABG Hemoglobin VBG pH Oxyhemoglobin Sodium Potassium Chloride Carbon Dioxide BUN Creatinine Glucose POC Glucose 157 H 147 H 158 H Lactic Acid Calcium Phosphorus Total Bilirubin AST ALT C-Reactive Protein Total Protein Albumin Triglycerides Amylase Lipase Urine WBC (Auto) Vancomycin Trough Crossmatch 01/04/18 01/04/18 01/04/18 04:01 05:13 06:12 WBC 11.5 H RBC 2.95 L Hgb 9.8 L Hct 29.5 L D MCV 100 H MCH 33 H MCHC RDW Plt Count Lymph % (Auto) [place] % (Auto) Eos % (Auto) [place] # Eos # Baso # Seg Neutrophils % Seg Neuts % (Manual) Lymphocytes % (Manual) Monocytes % (Manual) Eosinophils % (Manual) 6.0 H Nucleated RBC % Seg Neutrophils # Seg Neutrophils # Man Lymphocytes # (Manual) Monocytes # (Manual) Eosinophils # (Manual) 0.7 H APTT POC ABG pH ABG pH 7.498 H POC ABG pCO2 POC ABG pO2 ABG pO2 129.5 H ABG HCO3 30.1 H ABG O2 Saturation ABG Base Excess 6.4 H ABG Hemoglobin 9.3 L VBG pH Oxyhemoglobin Sodium Potassium Chloride Carbon Dioxide BUN Creatinine Glucose POC Glucose 163 H Lactic Acid Calcium Phosphorus Total Bilirubin AST ALT C-Reactive Protein Total Protein Albumin Triglycerides Amylase Lipase Urine WBC (Auto) Vancomycin Trough Crossmatch 01/04/18 01/04/18 01/04/18 06:12 10:55 14:29 WBC RBC Hgb Hct MCV MCH MCHC RDW Plt Count Lymph % (Auto) [place] % (Auto) Eos % (Auto) [place] # Eos # Baso # Seg Neutrophils % Seg Neuts % (Manual) Lymphocytes % (Manual) Monocytes % (Manual) Eosinophils % (Manual) Nucleated RBC % Seg Neutrophils # Seg Neutrophils # Man Lymphocytes # (Manual) Monocytes # (Manual) Eosinophils # (Manual) APTT POC ABG pH ABG pH POC ABG pCO2 POC ABG pO2 ABG pO2 ABG HCO3 ABG O2 Saturation ABG Base Excess ABG Hemoglobin VBG pH Oxyhemoglobin Sodium Potassium Chloride Carbon Dioxide BUN Creatinine 0.5 L Glucose 174 H POC Glucose 187 H 144 H Lactic Acid Calcium Phosphorus Total Bilirubin AST 41 H ALT C-Reactive Protein Total Protein Albumin 2.9 L Triglycerides Amylase Lipase Urine WBC (Auto) Vancomycin Trough Crossmatch 01/04/18 01/04/18 01/05/18 17:25 21:56 01:59 WBC RBC Hgb Hct MCV MCH MCHC RDW Plt Count Lymph % (Auto) [place] % (Auto) Eos % (Auto) [place] # Eos # Baso # Seg Neutrophils % Seg Neuts % (Manual) Lymphocytes % (Manual) Monocytes % (Manual) Eosinophils % (Manual) Nucleated RBC % Seg Neutrophils # Seg Neutrophils # Man Lymphocytes # (Manual) Monocytes # (Manual) Eosinophils # (Manual) APTT POC ABG pH ABG pH POC ABG pCO2 POC ABG pO2 ABG pO2 ABG HCO3 ABG O2 Saturation ABG Base Excess ABG Hemoglobin VBG pH Oxyhemoglobin Sodium Potassium Chloride Carbon Dioxide BUN Creatinine Glucose POC Glucose 156 H 171 H 162 H Lactic Acid Calcium Phosphorus Total Bilirubin AST ALT C-Reactive Protein Total Protein Albumin Triglycerides Amylase Lipase Urine WBC (Auto) Vancomycin Trough Crossmatch 01/05/18 01/05/18 01/05/18 03:50 06:00 06:07 WBC RBC Hgb Hct MCV MCH MCHC RDW Plt Count Lymph % (Auto) [place] % (Auto) Eos % (Auto) [place] # Eos # Baso # Seg Neutrophils % Seg Neuts % (Manual) Lymphocytes % (Manual) Monocytes % (Manual) Eosinophils % (Manual) Nucleated RBC % Seg Neutrophils # Seg Neutrophils # Man Lymphocytes # (Manual) Monocytes # (Manual) Eosinophils # (Manual) APTT POC ABG pH ABG pH POC ABG pCO2 POC ABG pO2 ABG pO2 64.6 L ABG HCO3 30.2 H ABG O2 Saturation 91.3 L ABG Base Excess 5.5 H ABG Hemoglobin 10.1 L VBG pH Oxyhemoglobin 89.0 L Sodium Potassium Chloride Carbon Dioxide BUN Creatinine 0.4 L Glucose 144 H POC Glucose 136 H Lactic Acid Calcium Phosphorus Total Bilirubin AST ALT C-Reactive Protein Total Protein Albumin Triglycerides Amylase Lipase Urine WBC (Auto) Vancomycin Trough Crossmatch 01/05/18 01/05/18 01/05/18 10:46 14:03 17:31 WBC RBC Hgb Hct MCV MCH MCHC RDW Plt Count Lymph % (Auto) [place] % (Auto) Eos % (Auto) [place] # Eos # Baso # Seg Neutrophils % Seg Neuts % (Manual) Lymphocytes % (Manual) Monocytes % (Manual) Eosinophils % (Manual) Nucleated RBC % Seg Neutrophils # Seg Neutrophils # Man Lymphocytes # (Manual) Monocytes # (Manual) Eosinophils # (Manual) APTT POC ABG pH ABG pH POC ABG pCO2 POC ABG pO2 ABG pO2 ABG HCO3 ABG O2 Saturation ABG Base Excess ABG Hemoglobin VBG pH Oxyhemoglobin Sodium Potassium Chloride Carbon Dioxide BUN Creatinine Glucose POC Glucose 147 H 141 H 192 H Lactic Acid Calcium Phosphorus Total Bilirubin AST ALT C-Reactive Protein Total Protein Albumin Triglycerides Amylase Lipase Urine WBC (Auto) Vancomycin Trough Crossmatch 01/05/18 01/05/18 01/06/18 22:12 Unknown 01:58 WBC RBC Hgb Hct MCV MCH MCHC RDW Plt Count Lymph % (Auto) [place] % (Auto) Eos % (Auto) [place] # Eos # Baso # Seg Neutrophils % Seg Neuts % (Manual) Lymphocytes % (Manual) Monocytes % (Manual) Eosinophils % (Manual) Nucleated RBC % Seg Neutrophils # Seg Neutrophils # Man Lymphocytes # (Manual) Monocytes # (Manual) Eosinophils # (Manual) APTT POC ABG pH ABG pH 7.463 H POC ABG pCO2 POC ABG pO2 ABG pO2 74.0 L ABG HCO3 29.4 H ABG O2 Saturation ABG Base Excess 5.2 H ABG Hemoglobin 10.0 L VBG pH Oxyhemoglobin 93.4 L Sodium Potassium Chloride Carbon Dioxide BUN Creatinine Glucose POC Glucose 209 H 138 H Lactic Acid Calcium Phosphorus Total Bilirubin AST ALT C-Reactive Protein Total Protein Albumin Triglycerides Amylase Lipase Urine WBC (Auto) Vancomycin Trough Crossmatch 01/06/18 01/06/18 01/06/18 03:14 05:30 05:30 WBC 12.6 H RBC 3.16 L Hgb 10.4 L Hct 31.7 L MCV 100 H MCH 33 H MCHC RDW 15.5 H Plt Count Lymph % (Auto) [place] % (Auto) Eos % (Auto) [place] # Eos # Baso # Seg Neutrophils % Seg Neuts % (Manual) 72.0 H Lymphocytes % (Manual) Monocytes % (Manual) 9.0 H Eosinophils % (Manual) Nucleated RBC % 1.0 H Seg Neutrophils # Seg Neutrophils # Man 9.1 H Lymphocytes # (Manual) Monocytes # (Manual) 1.1 H Eosinophils # (Manual) APTT POC ABG pH ABG pH POC ABG pCO2 POC ABG pO2 ABG pO2 ABG HCO3 28.8 H ABG O2 Saturation ABG Base Excess 4.2 H ABG Hemoglobin 9.3 L VBG pH Oxyhemoglobin 94.7 L Sodium 136 L Potassium Chloride 94.2 L Carbon Dioxide BUN Creatinine 0.4 L Glucose 146 H POC Glucose Lactic Acid Calcium Phosphorus Total Bilirubin AST ALT C-Reactive Protein Total Protein Albumin 3.1 L Triglycerides Amylase Lipase Urine WBC (Auto) Vancomycin Trough Crossmatch 01/06/18 01/06/18 01/06/18 05:42 10:00 14:40 WBC RBC Hgb Hct MCV MCH MCHC RDW Plt Count Lymph % (Auto) [place] % (Auto) Eos % (Auto) [place] # Eos # Baso # Seg Neutrophils % Seg Neuts % (Manual) Lymphocytes % (Manual) Monocytes % (Manual) Eosinophils % (Manual) Nucleated RBC % Seg Neutrophils # Seg Neutrophils # Man Lymphocytes # (Manual) Monocytes # (Manual) Eosinophils # (Manual) APTT POC ABG pH ABG pH POC ABG pCO2 POC ABG pO2 ABG pO2 ABG HCO3 ABG O2 Saturation ABG Base Excess ABG Hemoglobin VBG pH Oxyhemoglobin Sodium Potassium Chloride Carbon Dioxide BUN Creatinine Glucose POC Glucose 158 H 155 H 115 H Lactic Acid Calcium Phosphorus Total Bilirubin AST ALT C-Reactive Protein Total Protein Albumin Triglycerides Amylase Lipase Urine WBC (Auto) Vancomycin Trough Crossmatch 01/06/18 01/06/18 01/07/18 17:45 21:59 05:29 WBC RBC Hgb Hct MCV MCH MCHC RDW Plt Count Lymph % (Auto) [place] % (Auto) Eos % (Auto) [place] # Eos # Baso # Seg Neutrophils % Seg Neuts % (Manual) Lymphocytes % (Manual) Monocytes % (Manual) Eosinophils % (Manual) Nucleated RBC % Seg Neutrophils # Seg Neutrophils # Man Lymphocytes # (Manual) Monocytes # (Manual) Eosinophils # (Manual) APTT POC ABG pH ABG pH POC ABG pCO2 POC ABG pO2 ABG pO2 ABG HCO3 ABG O2 Saturation ABG Base Excess ABG Hemoglobin VBG pH Oxyhemoglobin Sodium Potassium Chloride Carbon Dioxide BUN Creatinine Glucose POC Glucose 156 H 177 H 179 H Lactic Acid Calcium Phosphorus Total Bilirubin AST ALT C-Reactive Protein Total Protein Albumin Triglycerides Amylase Lipase Urine WBC (Auto) Vancomycin Trough Crossmatch 01/07/18 01/07/18 01/07/18 10:00 14:32 18:05 WBC RBC Hgb Hct MCV MCH MCHC RDW Plt Count Lymph % (Auto) [place] % (Auto) Eos % (Auto) [place] # Eos # Baso # Seg Neutrophils % Seg Neuts % (Manual) Lymphocytes % (Manual) Monocytes % (Manual) Eosinophils % (Manual) Nucleated RBC % Seg Neutrophils # Seg Neutrophils # Man Lymphocytes # (Manual) Monocytes # (Manual) Eosinophils # (Manual) APTT POC ABG pH ABG pH POC ABG pCO2 POC ABG pO2 ABG pO2 ABG HCO3 ABG O2 Saturation ABG Base Excess ABG Hemoglobin VBG pH Oxyhemoglobin Sodium Potassium Chloride Carbon Dioxide BUN Creatinine Glucose POC Glucose 131 H 177 H 143 H Lactic Acid Calcium Phosphorus Total Bilirubin AST ALT C-Reactive Protein Total Protein Albumin Triglycerides Amylase Lipase Urine WBC (Auto) Vancomycin Trough Crossmatch 01/07/18 01/08/18 01/08/18 22:11 02:26 05:37 WBC RBC Hgb Hct MCV MCH MCHC RDW Plt Count Lymph % (Auto) [place] % (Auto) Eos % (Auto) [place] # Eos # Baso # Seg Neutrophils % Seg Neuts % (Manual) Lymphocytes % (Manual) Monocytes % (Manual) Eosinophils % (Manual) Nucleated RBC % Seg Neutrophils # Seg Neutrophils # Man Lymphocytes # (Manual) Monocytes # (Manual) Eosinophils # (Manual) APTT POC ABG pH ABG pH POC ABG pCO2 POC ABG pO2 ABG pO2 ABG HCO3 ABG O2 Saturation ABG Base Excess ABG Hemoglobin VBG pH Oxyhemoglobin Sodium Potassium Chloride Carbon Dioxide BUN Creatinine Glucose POC Glucose 133 H 194 H 106 H Lactic Acid Calcium Phosphorus Total Bilirubin AST ALT C-Reactive Protein Total Protein Albumin Triglycerides Amylase Lipase Urine WBC (Auto) Vancomycin Trough Crossmatch 01/08/18 01/08/18 01/08/18 09:41 10:45 10:45 WBC 11.6 H RBC 3.21 L Hgb 10.5 L Hct 32.0 L MCV 100 H MCH 33 H MCHC RDW 15.7 H Plt Count Lymph % (Auto) [place] % (Auto) Eos % (Auto) [place] # Eos # Baso # Seg Neutrophils % Seg Neuts % (Manual) Lymphocytes % (Manual) Monocytes % (Manual) Eosinophils % (Manual) Nucleated RBC % Seg Neutrophils # Seg Neutrophils # Man Lymphocytes # (Manual) Monocytes # (Manual) Eosinophils # (Manual) APTT POC ABG pH ABG pH POC ABG pCO2 POC ABG pO2 ABG pO2 ABG HCO3 ABG O2 Saturation ABG Base Excess ABG Hemoglobin VBG pH Oxyhemoglobin Sodium Potassium Chloride 96.4 L Carbon Dioxide BUN Creatinine 0.4 L Glucose 146 H POC Glucose 142 H Lactic Acid Calcium Phosphorus Total Bilirubin AST ALT C-Reactive Protein Total Protein Albumin Triglycerides Amylase Lipase Urine WBC (Auto) Vancomycin Trough Crossmatch 01/08/18 01/08/18 01/08/18 14:31 17:20 21:46 WBC RBC Hgb Hct MCV MCH MCHC RDW Plt Count Lymph % (Auto) [place] % (Auto) Eos % (Auto) [place] # Eos # Baso # Seg Neutrophils % Seg Neuts % (Manual) Lymphocytes % (Manual) Monocytes % (Manual) Eosinophils % (Manual) Nucleated RBC % Seg Neutrophils # Seg Neutrophils # Man Lymphocytes # (Manual) Monocytes # (Manual) Eosinophils # (Manual) APTT POC ABG pH ABG pH POC ABG pCO2 POC ABG pO2 ABG pO2 ABG HCO3 ABG O2 Saturation ABG Base Excess ABG Hemoglobin VBG pH Oxyhemoglobin Sodium Potassium Chloride Carbon Dioxide BUN Creatinine Glucose POC Glucose 158 H 160 H 166 H Lactic Acid Calcium Phosphorus Total Bilirubin AST ALT C-Reactive Protein Total Protein Albumin Triglycerides Amylase Lipase Urine WBC (Auto) Vancomycin Trough Crossmatch 01/09/18 01/09/18 01/09/18 02:01 04:30 04:30 WBC RBC 3.21 L Hgb 10.9 L Hct 31.7 L MCV 99 H MCH 34 H MCHC RDW 15.8 H Plt Count Lymph % (Auto) [place] % (Auto) Eos % (Auto) [place] # Eos # Baso # Seg Neutrophils % Seg Neuts % (Manual) Lymphocytes % (Manual) Monocytes % (Manual) Eosinophils % (Manual) Nucleated RBC % Seg Neutrophils # Seg Neutrophils # Man Lymphocytes # (Manual) Monocytes # (Manual) Eosinophils # (Manual) APTT POC ABG pH ABG pH POC ABG pCO2 POC ABG pO2 ABG pO2 ABG HCO3 ABG O2 Saturation ABG Base Excess ABG Hemoglobin VBG pH Oxyhemoglobin Sodium 135 L Potassium Chloride 93.8 L Carbon Dioxide BUN Creatinine 0.5 L Glucose 137 H POC Glucose 155 H Lactic Acid Calcium Phosphorus Total Bilirubin AST ALT C-Reactive Protein Total Protein Albumin Triglycerides Amylase Lipase Urine WBC (Auto) Vancomycin Trough Crossmatch 01/09/18 01/09/18 01/09/18 05:42 10:41 14:01 WBC RBC Hgb Hct MCV MCH MCHC RDW Plt Count Lymph % (Auto) [place] % (Auto) Eos % (Auto) [place] # Eos # Baso # Seg Neutrophils % Seg Neuts % (Manual) Lymphocytes % (Manual) Monocytes % (Manual) Eosinophils % (Manual) Nucleated RBC % Seg Neutrophils # Seg Neutrophils # Man Lymphocytes # (Manual) Monocytes # (Manual) Eosinophils # (Manual) APTT POC ABG pH ABG pH POC ABG pCO2 POC ABG pO2 ABG pO2 ABG HCO3 ABG O2 Saturation ABG Base Excess ABG Hemoglobin VBG pH Oxyhemoglobin Sodium Potassium Chloride Carbon Dioxide BUN Creatinine Glucose POC Glucose 142 H 187 H 138 H Lactic Acid Calcium Phosphorus Total Bilirubin AST ALT C-Reactive Protein Total Protein Albumin Triglycerides Amylase Lipase Urine WBC (Auto) Vancomycin Trough Crossmatch 01/09/18 01/09/18 01/10/18 18:09 21:09 02:06 WBC RBC Hgb Hct MCV MCH MCHC RDW Plt Count Lymph % (Auto) [place] % (Auto) Eos % (Auto) [place] # Eos # Baso # Seg Neutrophils % Seg Neuts % (Manual) Lymphocytes % (Manual) Monocytes % (Manual) Eosinophils % (Manual) Nucleated RBC % Seg Neutrophils # Seg Neutrophils # Man Lymphocytes # (Manual) Monocytes # (Manual) Eosinophils # (Manual) APTT POC ABG pH ABG pH POC ABG pCO2 POC ABG pO2 ABG pO2 ABG HCO3 ABG O2 Saturation ABG Base Excess ABG Hemoglobin VBG pH Oxyhemoglobin Sodium Potassium Chloride Carbon Dioxide BUN Creatinine Glucose POC Glucose 143 H 188 H 160 H Lactic Acid Calcium Phosphorus Total Bilirubin AST ALT C-Reactive Protein Total Protein Albumin Triglycerides Amylase Lipase Urine WBC (Auto) Vancomycin Trough Crossmatch 01/10/18 01/10/18 01/10/18 05:58 09:54 13:58 WBC RBC Hgb Hct MCV MCH MCHC RDW Plt Count Lymph % (Auto) [place] % (Auto) Eos % (Auto) [place] # Eos # Baso # Seg Neutrophils % Seg Neuts % (Manual) Lymphocytes % (Manual) Monocytes % (Manual) Eosinophils % (Manual) Nucleated RBC % Seg Neutrophils # Seg Neutrophils # Man Lymphocytes # (Manual) Monocytes # (Manual) Eosinophils # (Manual) APTT POC ABG pH ABG pH POC ABG pCO2 POC ABG pO2 ABG pO2 ABG HCO3 ABG O2 Saturation ABG Base Excess ABG Hemoglobin VBG pH Oxyhemoglobin Sodium Potassium Chloride Carbon Dioxide BUN Creatinine Glucose POC Glucose 134 H 162 H 152 H Lactic Acid Calcium Phosphorus Total Bilirubin AST ALT C-Reactive Protein Total Protein Albumin Triglycerides Amylase Lipase Urine WBC (Auto) Vancomycin Trough Crossmatch 01/10/18 01/10/18 01/11/18 16:56 21:57 02:22 WBC RBC Hgb Hct MCV MCH MCHC RDW Plt Count Lymph % (Auto) [place] % (Auto) Eos % (Auto) [place] # Eos # Baso # Seg Neutrophils % Seg Neuts % (Manual) Lymphocytes % (Manual) Monocytes % (Manual) Eosinophils % (Manual) Nucleated RBC % Seg Neutrophils # Seg Neutrophils # Man Lymphocytes # (Manual) Monocytes # (Manual) Eosinophils # (Manual) APTT POC ABG pH ABG pH POC ABG pCO2 POC ABG pO2 ABG pO2 ABG HCO3 ABG O2 Saturation ABG Base Excess ABG Hemoglobin VBG pH Oxyhemoglobin Sodium Potassium Chloride Carbon Dioxide BUN Creatinine Glucose POC Glucose 161 H 161 H 159 H Lactic Acid Calcium Phosphorus Total Bilirubin AST ALT C-Reactive Protein Total Protein Albumin Triglycerides Amylase Lipase Urine WBC (Auto) Vancomycin Trough Crossmatch 01/11/18 01/11/18 01/11/18 06:19 10:23 11:21 WBC 12.7 H RBC 3.50 L Hgb 11.5 L Hct 34.8 L MCV 99 H MCH 33 H MCHC RDW Plt Count Lymph % (Auto) [place] % (Auto) Eos % (Auto) [place] # Eos # Baso # Seg Neutrophils % Seg Neuts % (Manual) Lymphocytes % (Manual) Monocytes % (Manual) Eosinophils % (Manual) Nucleated RBC % Seg Neutrophils # Seg Neutrophils # Man Lymphocytes # (Manual) Monocytes # (Manual) Eosinophils # (Manual) APTT POC ABG pH ABG pH POC ABG pCO2 POC ABG pO2 ABG pO2 ABG HCO3 ABG O2 Saturation ABG Base Excess ABG Hemoglobin VBG pH Oxyhemoglobin Sodium Potassium Chloride Carbon Dioxide BUN Creatinine Glucose POC Glucose 174 H 172 H Lactic Acid Calcium Phosphorus Total Bilirubin AST ALT C-Reactive Protein Total Protein Albumin Triglycerides Amylase Lipase Urine WBC (Auto) Vancomycin Trough Crossmatch 01/11/18 01/11/18 01/11/18 11:21 14:00 17:19 WBC RBC Hgb Hct MCV MCH MCHC RDW Plt Count Lymph % (Auto) [place] % (Auto) Eos % (Auto) [place] # Eos # Baso # Seg Neutrophils % Seg Neuts % (Manual) Lymphocytes % (Manual) Monocytes % (Manual) Eosinophils % (Manual) Nucleated RBC % Seg Neutrophils # Seg Neutrophils # Man Lymphocytes # (Manual) Monocytes # (Manual) Eosinophils # (Manual) APTT POC ABG pH ABG pH POC ABG pCO2 POC ABG pO2 ABG pO2 ABG HCO3 ABG O2 Saturation ABG Base Excess ABG Hemoglobin VBG pH Oxyhemoglobin Sodium 133 L Potassium Chloride 92.9 L Carbon Dioxide BUN Creatinine 0.4 L Glucose 156 H POC Glucose 152 H 177 H Lactic Acid Calcium Phosphorus Total Bilirubin AST ALT C-Reactive Protein Total Protein Albumin Triglycerides Amylase Lipase Urine WBC (Auto) Vancomycin Trough Crossmatch 01/11/18 01/12/18 01/12/18 22:20 02:09 05:50 WBC RBC Hgb Hct MCV MCH MCHC RDW Plt Count Lymph % (Auto) [place] % (Auto) Eos % (Auto) [place] # Eos # Baso # Seg Neutrophils % Seg Neuts % (Manual) Lymphocytes % (Manual) Monocytes % (Manual) Eosinophils % (Manual) Nucleated RBC % Seg Neutrophils # Seg Neutrophils # Man Lymphocytes # (Manual) Monocytes # (Manual) Eosinophils # (Manual) APTT POC ABG pH ABG pH POC ABG pCO2 POC ABG pO2 ABG pO2 ABG HCO3 ABG O2 Saturation ABG Base Excess ABG Hemoglobin VBG pH Oxyhemoglobin Sodium Potassium Chloride Carbon Dioxide BUN Creatinine Glucose POC Glucose 208 H 179 H 165 H Lactic Acid Calcium Phosphorus Total Bilirubin AST ALT C-Reactive Protein Total Protein Albumin Triglycerides Amylase Lipase Urine WBC (Auto) Vancomycin Trough Crossmatch 01/12/18 01/12/18 01/12/18 09:31 13:23 17:35 WBC RBC Hgb Hct MCV MCH MCHC RDW Plt Count Lymph % (Auto) [place] % (Auto) Eos % (Auto) [place] # Eos # Baso # Seg Neutrophils % Seg Neuts % (Manual) Lymphocytes % (Manual) Monocytes % (Manual) Eosinophils % (Manual) Nucleated RBC % Seg Neutrophils # Seg Neutrophils # Man Lymphocytes # (Manual) Monocytes # (Manual) Eosinophils # (Manual) APTT POC ABG pH ABG pH POC ABG pCO2 POC ABG pO2 ABG pO2 ABG HCO3 ABG O2 Saturation ABG Base Excess ABG Hemoglobin VBG pH Oxyhemoglobin Sodium Potassium Chloride Carbon Dioxide BUN Creatinine Glucose POC Glucose 142 H 138 H 172 H Lactic Acid Calcium Phosphorus Total Bilirubin AST ALT C-Reactive Protein Total Protein Albumin Triglycerides Amylase Lipase Urine WBC (Auto) Vancomycin Trough Crossmatch 01/12/18 01/13/18 01/13/18 22:03 01:56 05:00 WBC RBC 3.50 L Hgb Hct 34.1 L MCV 98 H MCH 34 H MCHC 35 H RDW Plt Count Lymph % (Auto) [place] % (Auto) Eos % (Auto) [place] # Eos # Baso # Seg Neutrophils % Seg Neuts % (Manual) Lymphocytes % (Manual) Monocytes % (Manual) Eosinophils % (Manual) Nucleated RBC % Seg Neutrophils # Seg Neutrophils # Man Lymphocytes # (Manual) Monocytes # (Manual) Eosinophils # (Manual) APTT POC ABG pH ABG pH POC ABG pCO2 POC ABG pO2 ABG pO2 ABG HCO3 ABG O2 Saturation ABG Base Excess ABG Hemoglobin VBG pH Oxyhemoglobin Sodium Potassium Chloride Carbon Dioxide BUN Creatinine Glucose POC Glucose 166 H 129 H Lactic Acid Calcium Phosphorus Total Bilirubin AST ALT C-Reactive Protein Total Protein Albumin Triglycerides Amylase Lipase Urine WBC (Auto) Vancomycin Trough Crossmatch 01/13/18 01/13/18 01/13/18 05:00 05:06 09:44 WBC RBC Hgb Hct MCV MCH MCHC RDW Plt Count Lymph % (Auto) [place] % (Auto) Eos % (Auto) [place] # Eos # Baso # Seg Neutrophils % Seg Neuts % (Manual) Lymphocytes % (Manual) Monocytes % (Manual) Eosinophils % (Manual) Nucleated RBC % Seg Neutrophils # Seg Neutrophils # Man Lymphocytes # (Manual) Monocytes # (Manual) Eosinophils # (Manual) APTT POC ABG pH ABG pH POC ABG pCO2 POC ABG pO2 ABG pO2 ABG HCO3 ABG O2 Saturation ABG Base Excess ABG Hemoglobin VBG pH Oxyhemoglobin Sodium 136 L Potassium Chloride 95.5 L Carbon Dioxide BUN Creatinine 0.4 L Glucose 165 H POC Glucose 188 H 132 H Lactic Acid Calcium Phosphorus Total Bilirubin AST ALT C-Reactive Protein Total Protein Albumin Triglycerides Amylase Lipase Urine WBC (Auto) Vancomycin Trough Crossmatch 01/13/18 01/13/18 01/13/18 13:53 18:06 21:26 WBC RBC Hgb Hct MCV MCH MCHC RDW Plt Count Lymph % (Auto) [place] % (Auto) Eos % (Auto) [place] # Eos # Baso # Seg Neutrophils % Seg Neuts % (Manual) Lymphocytes % (Manual) Monocytes % (Manual) Eosinophils % (Manual) Nucleated RBC % Seg Neutrophils # Seg Neutrophils # Man Lymphocytes # (Manual) Monocytes # (Manual) Eosinophils # (Manual) APTT POC ABG pH ABG pH POC ABG pCO2 POC ABG pO2 ABG pO2 ABG HCO3 ABG O2 Saturation ABG Base Excess ABG Hemoglobin VBG pH Oxyhemoglobin Sodium Potassium Chloride Carbon Dioxide BUN Creatinine Glucose POC Glucose 137 H 142 H 129 H Lactic Acid Calcium Phosphorus Total Bilirubin AST ALT C-Reactive Protein Total Protein Albumin Triglycerides Amylase Lipase Urine WBC (Auto) Vancomycin Trough Crossmatch 01/14/18 01/14/18 01/14/18 04:30 04:30 05:31 WBC 16.5 H RBC 3.55 L Hgb 11.7 L Hct 35.1 L MCV 99 H MCH 33 H MCHC RDW 15.4 H Plt Count Lymph % (Auto) [place] % (Auto) Eos % (Auto) [place] # Eos # Baso # Seg Neutrophils % Seg Neuts % (Manual) Lymphocytes % (Manual) Monocytes % (Manual) Eosinophils % (Manual) Nucleated RBC % Seg Neutrophils # Seg Neutrophils # Man Lymphocytes # (Manual) Monocytes # (Manual) Eosinophils # (Manual) APTT POC ABG pH ABG pH POC ABG pCO2 POC ABG pO2 ABG pO2 ABG HCO3 ABG O2 Saturation ABG Base Excess ABG Hemoglobin VBG pH Oxyhemoglobin Sodium Potassium Chloride 93.8 L Carbon Dioxide BUN Creatinine 0.5 L Glucose POC Glucose 119 H Lactic Acid Calcium Phosphorus Total Bilirubin AST ALT C-Reactive Protein Total Protein Albumin Triglycerides Amylase Lipase Urine WBC (Auto) Vancomycin Trough Crossmatch 01/14/18 01/14/18 01/14/18 10:08 17:27 22:07 WBC RBC Hgb Hct MCV MCH MCHC RDW Plt Count Lymph % (Auto) [place] % (Auto) Eos % (Auto) [place] # Eos # Baso # Seg Neutrophils % Seg Neuts % (Manual) Lymphocytes % (Manual) Monocytes % (Manual) Eosinophils % (Manual) Nucleated RBC % Seg Neutrophils # Seg Neutrophils # Man Lymphocytes # (Manual) Monocytes # (Manual) Eosinophils # (Manual) APTT POC ABG pH ABG pH POC ABG pCO2 POC ABG pO2 ABG pO2 ABG HCO3 ABG O2 Saturation ABG Base Excess ABG Hemoglobin VBG pH Oxyhemoglobin Sodium Potassium Chloride Carbon Dioxide BUN Creatinine Glucose POC Glucose 119 H 113 H 138 H Lactic Acid Calcium Phosphorus Total Bilirubin AST ALT C-Reactive Protein Total Protein Albumin Triglycerides Amylase Lipase Urine WBC (Auto) Vancomycin Trough Crossmatch 01/15/18 01/15/18 01/15/18 02:12 05:36 08:02 WBC 12.8 H RBC 3.41 L Hgb 11.1 L Hct 33.6 L MCV 99 H MCH 33 H MCHC RDW Plt Count Lymph % (Auto) [place] % (Auto) 7.8 H Eos % (Auto) [place] # 1.0 H Eos # Baso # Seg Neutrophils % 72.8 H Seg Neuts % (Manual) Lymphocytes % (Manual) Monocytes % (Manual) Eosinophils % (Manual) Nucleated RBC % Seg Neutrophils # 9.3 H Seg Neutrophils # Man Lymphocytes # (Manual) Monocytes # (Manual) Eosinophils # (Manual) APTT POC ABG pH ABG pH POC ABG pCO2 POC ABG pO2 ABG pO2 ABG HCO3 ABG O2 Saturation ABG Base Excess ABG Hemoglobin VBG pH Oxyhemoglobin Sodium Potassium Chloride Carbon Dioxide BUN Creatinine Glucose POC Glucose 147 H 138 H Lactic Acid Calcium Phosphorus Total Bilirubin AST ALT C-Reactive Protein Total Protein Albumin Triglycerides Amylase Lipase Urine WBC (Auto) Vancomycin Trough Crossmatch 01/15/18 01/15/18 01/15/18 08:02 10:05 12:06 WBC RBC Hgb Hct MCV MCH MCHC RDW Plt Count Lymph % (Auto) [place] % (Auto) Eos % (Auto) [place] # Eos # Baso # Seg Neutrophils % Seg Neuts % (Manual) Lymphocytes % (Manual) Monocytes % (Manual) Eosinophils % (Manual) Nucleated RBC % Seg Neutrophils # Seg Neutrophils # Man Lymphocytes # (Manual) Monocytes # (Manual) Eosinophils # (Manual) APTT POC ABG pH ABG pH POC ABG pCO2 POC ABG pO2 ABG pO2 ABG HCO3 ABG O2 Saturation ABG Base Excess ABG Hemoglobin VBG pH Oxyhemoglobin Sodium 136 L Potassium Chloride 94.9 L Carbon Dioxide BUN Creatinine 0.4 L Glucose 142 H POC Glucose 136 H 133 H Lactic Acid Calcium Phosphorus Total Bilirubin AST ALT C-Reactive Protein Total Protein Albumin Triglycerides Amylase Lipase Urine WBC (Auto) Vancomycin Trough Crossmatch 01/15/18 01/15/18 01/16/18 14:16 21:59 01:58 WBC RBC Hgb Hct MCV MCH MCHC RDW Plt Count Lymph % (Auto) [place] % (Auto) Eos % (Auto) [place] # Eos # Baso # Seg Neutrophils % Seg Neuts % (Manual) Lymphocytes % (Manual) Monocytes % (Manual) Eosinophils % (Manual) Nucleated RBC % Seg Neutrophils # Seg Neutrophils # Man Lymphocytes # (Manual) Monocytes # (Manual) Eosinophils # (Manual) APTT POC ABG pH ABG pH POC ABG pCO2 POC ABG pO2 ABG pO2 ABG HCO3 ABG O2 Saturation ABG Base Excess ABG Hemoglobin VBG pH Oxyhemoglobin Sodium Potassium Chloride Carbon Dioxide BUN Creatinine Glucose POC Glucose 123 H 134 H 143 H Lactic Acid Calcium Phosphorus Total Bilirubin AST ALT C-Reactive Protein Total Protein Albumin Triglycerides Amylase Lipase Urine WBC (Auto) Vancomycin Trough Crossmatch 01/16/18 01/16/18 01/16/18 05:29 10:13 14:04 WBC RBC Hgb Hct MCV MCH MCHC RDW Plt Count Lymph % (Auto) [place] % (Auto) Eos % (Auto) [place] # Eos # Baso # Seg Neutrophils % Seg Neuts % (Manual) Lymphocytes % (Manual) Monocytes % (Manual) Eosinophils % (Manual) Nucleated RBC % Seg Neutrophils # Seg Neutrophils # Man Lymphocytes # (Manual) Monocytes # (Manual) Eosinophils # (Manual) APTT POC ABG pH ABG pH POC ABG pCO2 POC ABG pO2 ABG pO2 ABG HCO3 ABG O2 Saturation ABG Base Excess ABG Hemoglobin VBG pH Oxyhemoglobin Sodium Potassium Chloride Carbon Dioxide BUN Creatinine Glucose POC Glucose 145 H 117 H 139 H Lactic Acid Calcium Phosphorus Total Bilirubin AST ALT C-Reactive Protein Total Protein Albumin Triglycerides Amylase Lipase Urine WBC (Auto) Vancomycin Trough Crossmatch 01/16/18 01/16/18 01/17/18 17:39 23:13 02:57 WBC RBC Hgb Hct MCV MCH MCHC RDW Plt Count Lymph % (Auto) [place] % (Auto) Eos % (Auto) [place] # Eos # Baso # Seg Neutrophils % Seg Neuts % (Manual) Lymphocytes % (Manual) Monocytes % (Manual) Eosinophils % (Manual) Nucleated RBC % Seg Neutrophils # Seg Neutrophils # Man Lymphocytes # (Manual) Monocytes # (Manual) Eosinophils # (Manual) APTT POC ABG pH ABG pH POC ABG pCO2 POC ABG pO2 ABG pO2 ABG HCO3 ABG O2 Saturation ABG Base Excess ABG Hemoglobin VBG pH Oxyhemoglobin Sodium Potassium Chloride Carbon Dioxide BUN Creatinine Glucose POC Glucose 138 H 142 H 125 H Lactic Acid Calcium Phosphorus Total Bilirubin AST ALT C-Reactive Protein Total Protein Albumin Triglycerides Amylase Lipase Urine WBC (Auto) Vancomycin Trough Crossmatch 01/17/18 01/17/18 01/17/18 06:48 07:00 07:00 WBC 13.2 H RBC 3.52 L Hgb 11.5 L Hct 35.0 L MCV 99 H MCH 33 H MCHC RDW Plt Count Lymph % (Auto) [place] % (Auto) 8.3 H Eos % (Auto) [place] # 1.1 H Eos # Baso # Seg Neutrophils % 70.2 H Seg Neuts % (Manual) Lymphocytes % (Manual) Monocytes % (Manual) Eosinophils % (Manual) Nucleated RBC % Seg Neutrophils # 9.2 H Seg Neutrophils # Man Lymphocytes # (Manual) Monocytes # (Manual) Eosinophils # (Manual) APTT POC ABG pH ABG pH POC ABG pCO2 POC ABG pO2 ABG pO2 ABG HCO3 ABG O2 Saturation ABG Base Excess ABG Hemoglobin VBG pH Oxyhemoglobin Sodium Potassium Chloride 95.5 L Carbon Dioxide BUN Creatinine 0.4 L Glucose 138 H POC Glucose 111 H Lactic Acid Calcium Phosphorus Total Bilirubin AST ALT C-Reactive Protein Total Protein Albumin Triglycerides Amylase Lipase Urine WBC (Auto) Vancomycin Trough Crossmatch 01/17/18 01/17/18 01/17/18 12:54 16:30 22:25 WBC RBC Hgb Hct MCV MCH MCHC RDW Plt Count Lymph % (Auto) [place] % (Auto) Eos % (Auto) [place] # Eos # Baso # Seg Neutrophils % Seg Neuts % (Manual) Lymphocytes % (Manual) Monocytes % (Manual) Eosinophils % (Manual) Nucleated RBC % Seg Neutrophils # Seg Neutrophils # Man Lymphocytes # (Manual) Monocytes # (Manual) Eosinophils # (Manual) APTT POC ABG pH ABG pH POC ABG pCO2 POC ABG pO2 ABG pO2 ABG HCO3 ABG O2 Saturation ABG Base Excess ABG Hemoglobin VBG pH Oxyhemoglobin Sodium Potassium Chloride Carbon Dioxide BUN Creatinine Glucose POC Glucose 164 H 151 H 164 H Lactic Acid Calcium Phosphorus Total Bilirubin AST ALT C-Reactive Protein Total Protein Albumin Triglycerides Amylase Lipase Urine WBC (Auto) Vancomycin Trough Crossmatch 01/18/18 01/18/18 01/18/18 02:55 05:55 11:52 WBC RBC Hgb Hct MCV MCH MCHC RDW Plt Count Lymph % (Auto) [place] % (Auto) Eos % (Auto) [place] # Eos # Baso # Seg Neutrophils % Seg Neuts % (Manual) Lymphocytes % (Manual) Monocytes % (Manual) Eosinophils % (Manual) Nucleated RBC % Seg Neutrophils # Seg Neutrophils # Man Lymphocytes # (Manual) Monocytes # (Manual) Eosinophils # (Manual) APTT POC ABG pH ABG pH POC ABG pCO2 POC ABG pO2 ABG pO2 ABG HCO3 ABG O2 Saturation ABG Base Excess ABG Hemoglobin VBG pH Oxyhemoglobin Sodium Potassium Chloride Carbon Dioxide BUN Creatinine Glucose POC Glucose 117 H 125 H 135 H Lactic Acid Calcium Phosphorus Total Bilirubin AST ALT C-Reactive Protein Total Protein Albumin Triglycerides Amylase Lipase Urine WBC (Auto) Vancomycin Trough Crossmatch 01/18/18 01/18/18 01/18/18 12:40 14:24 21:24 WBC RBC Hgb Hct MCV MCH MCHC RDW Plt Count Lymph % (Auto) [place] % (Auto) Eos % (Auto) [place] # Eos # Baso # Seg Neutrophils % Seg Neuts % (Manual) Lymphocytes % (Manual) Monocytes % (Manual) Eosinophils % (Manual) Nucleated RBC % Seg Neutrophils # Seg Neutrophils # Man Lymphocytes # (Manual) Monocytes # (Manual) Eosinophils # (Manual) APTT POC ABG pH ABG pH POC ABG pCO2 POC ABG pO2 ABG pO2 ABG HCO3 ABG O2 Saturation ABG Base Excess ABG Hemoglobin VBG pH Oxyhemoglobin Sodium Potassium Chloride Carbon Dioxide BUN Creatinine Glucose POC Glucose 136 H 150 H 152 H Lactic Acid Calcium Phosphorus Total Bilirubin AST ALT C-Reactive Protein Total Protein Albumin Triglycerides Amylase Lipase Urine WBC (Auto) Vancomycin Trough Crossmatch 01/19/18 01/19/18 01/19/18 02:34 05:54 09:00 WBC RBC Hgb Hct MCV MCH MCHC RDW Plt Count Lymph % (Auto) [place] % (Auto) Eos % (Auto) [place] # Eos # Baso # Seg Neutrophils % Seg Neuts % (Manual) Lymphocytes % (Manual) Monocytes % (Manual) Eosinophils % (Manual) Nucleated RBC % Seg Neutrophils # Seg Neutrophils # Man Lymphocytes # (Manual) Monocytes # (Manual) Eosinophils # (Manual) APTT POC ABG pH ABG pH POC ABG pCO2 POC ABG pO2 ABG pO2 ABG HCO3 ABG O2 Saturation ABG Base Excess ABG Hemoglobin VBG pH Oxyhemoglobin Sodium 136 L Potassium 5.1 H D Chloride 95.2 L Carbon Dioxide BUN Creatinine 0.5 L Glucose 133 H POC Glucose 147 H 182 H Lactic Acid Calcium 10.3 H Phosphorus Total Bilirubin AST ALT C-Reactive Protein Total Protein Albumin Triglycerides Amylase Lipase Urine WBC (Auto) Vancomycin Trough Crossmatch 01/19/18 01/19/18 01/19/18 10:41 14:45 14:48 WBC 12.0 H RBC 3.57 L Hgb Hct 35.0 L MCV 98 H MCH 33 H MCHC RDW Plt Count Lymph % (Auto) [place] % (Auto) Eos % (Auto) [place] # Eos # Baso # Seg Neutrophils % Seg Neuts % (Manual) Lymphocytes % (Manual) Monocytes % (Manual) Eosinophils % (Manual) Nucleated RBC % Seg Neutrophils # Seg Neutrophils # Man Lymphocytes # (Manual) Monocytes # (Manual) Eosinophils # (Manual) APTT POC ABG pH ABG pH POC ABG pCO2 POC ABG pO2 ABG pO2 ABG HCO3 ABG O2 Saturation ABG Base Excess ABG Hemoglobin VBG pH Oxyhemoglobin Sodium Potassium Chloride Carbon Dioxide BUN Creatinine Glucose POC Glucose 149 H 156 H Lactic Acid Calcium Phosphorus Total Bilirubin AST ALT C-Reactive Protein Total Protein Albumin Triglycerides Amylase Lipase Urine WBC (Auto) Vancomycin Trough Crossmatch Chest x-ray: report reviewed, image reviewed
[2018-01-19 17:27] LABS: Basophils % (Manual) 0 % (0.0-1.8); Total Cells Counted 100
[2018-01-19 17:29] LABS: Anisocytosis 2+
[2018-01-19] MEDS: LOVENOX SUB-Q SCH (21:59)
[2018-01-19] MEDS: SODIUM CHLORIDE FLUSH SYRINGE 10 ML IV PRN (22:00)
[2018-01-20] MEDS: HumaLOG SUB-Q SCH ×6 (03:56→18:22)
[2018-01-20 06:50] LABS: BUN/Creatinine Ratio 48; Blood Urea Nitrogen 19 mg/dL (9-20); Calcium 10.1 mg/dL (8.4-10.2); Hemolysis Index 0
[2018-01-20] MEDS: DUONEB *Not for PRN Use IH SCH ×3 (08:24→19:24)
[2018-01-20] MEDS: FOLVITE FEEDTUBE SCH (11:13)
[2018-01-20] MEDS: PEPCID PO SCH ×2 (11:14→21:37)
[2018-01-20] MEDS: VITAMIN B-1 PO SCH (11:14)
[2018-01-20] MEDS: LIBRIUM PO SCH ×3 (11:36→21:37)
[2018-01-20] MEDS: LOPRESSOR PO SCH ×2 (11:37→21:37)
[2018-01-20] MEDS: SODIUM CHLORIDE FLUSH SYRINGE 10 ML IV SCH ×2 (11:37→21:38)
[2018-01-20] MEDS: LANTUS SUB-Q SCH (13:11)
--- NOTE | 2018-01-20 15:26 | Progress Note ---
Assessment and Plan Delirium - as needed haldol for now, cont restrain Dysphagia - likely from prolong intubation, failed swallow study - s/p MBS study today, speech recommended pureed diet Acute hypoxic respiratory failure, resolved - suspected due to ARDS/aspiration pneumonia: - pulmonary following and required prolong intubation - s/p extubated on 01/15, cont frequent suction, nebs, Suspected ARDS: - Pulmonology is following, off vent now - CXR showing improvement Sepsis, Etiology most likely complicated H influenza bacteremia +/- pneumonia: - treated with IV antibiotics, - ID signed off, appreciate recommendation Alcohol abuse: cont thiamine, folate, taper librium Hypotension resolved with ivfs and iv steroids Thrombocytopenia, - severe most likely due to sepsis: now stable Hypernatremia - improved with free water with TF and hypotonic iv fluid hypokalemia, replaced. Stopped Kcl replacement as pt developed hyperkalemia DM type 2- cont long acting and SSI, lentus to 26 unit daily Moderate to Severe protein calorie malnutrition; nutrition supplements, started on oral diet today Anemia; s/p 1 Unit PRBC this admission. DVT prophylaxis: scd and lovenox Disposition: Home with family support Brief History: Patient is a 47 yo man with a history of tobacco dependency, alcohol abuse, dm type 2, hypertension and asthma who presented to [facility] ED with SOB and found to be severely hypoxic, failed bipap and was intubated. There is report of n/v during and after intubation. He had prolong intubation likely from ARDS. S/p extubation on on 01/15. Speech recommended purred diet. Hospitalist Physical GEN: no distress, HEENT: NCAT, pupils react, NG tube in place NECK: supple, CVS/HEART:regular, NORMAL S1S2, pulses present bilaterally CHEST/LUNGS: Symmetrical chest expansion, coarse BS bilaterally GI/Abdomen: soft, distended, good bowel sounds, no guarding or rebound EXT/Skin: no edema MSK: no joint effusion or tenderness Neuro: eyes wide open, follow commend, Psych: cooperative, but tries to climbed out from bed Subjective Date of service: 01/20/18 Principal diagnosis: ARDS,Respiratory failure,pneumonia Interval history: Pt seen and examined extubated 01/15/18 Speech recommended pureed diet and honey thickened liquid for him cont to monitor at telemetry updated at bedside Objective - Constitutional Vitals: Vital Signs - 12hr 01/20/18 01/20/18 01/20/18 04:15 04:25 06:42 Temperature 98.1 F Pulse Rate 94 H 92 H 94 H Pulse Rate [ Anterior Bilateral Throughout] Respiratory 18 Rate Respiratory Rate [Anterior Bilateral Throughout] Blood Pressure Blood Pressure 123/74 [Left] O2 Sat by Pulse 97 Oximetry 01/20/18 01/20/18 01/20/18 07:24 08:24 13:28 Temperature 98.5 F Pulse Rate 102 H Pulse Rate [ 103 H 88 Anterior Bilateral Throughout] Respiratory 10 L Rate Respiratory 20 20 Rate [Anterior Bilateral Throughout] Blood Pressure 107/73 Blood Pressure [Left] O2 Sat by Pulse 90 97 Oximetry 01/20/18 13:38 Temperature Pulse Rate Pulse Rate [ 92 H Anterior Bilateral Throughout] Respiratory Rate Respiratory 20 Rate [Anterior Bilateral Throughout] Blood Pressure Blood Pressure [Left] O2 Sat by Pulse Oximetry - Labs CBC & Chem 7: 01/19/18 14:45 01/20/18 05:45 Labs: Abnormal lab results 01/19/18 01/19/18 01/19/18 Range/Units 14:45 14:48 18:23 Seg Neuts % (Manual) 72.0 H (40.0-70.0) % Monocytes % (Manual) 8.0 H (0.0-7.3) % Seg Neutrophils # Man 8.6 H (1.8-7.7) K/mm3 Monocytes # (Manual) 1.0 H (0.0-0.8) K/mm3 Chloride (98-107) mmol/L Creatinine (0.8-1.5) mg/dL Glucose (75-100) mg/dL POC Glucose 156 H 131 H (70-105) 01/19/18 01/20/18 01/20/18 Range/Units 21:50 05:45 06:47 Seg Neuts % (Manual) (40.0-70.0) % Monocytes % (Manual) (0.0-7.3) % Seg Neutrophils # Man (1.8-7.7) K/mm3 Monocytes # (Manual) (0.0-0.8) K/mm3 Chloride 96.9 L (98-107) mmol/L Creatinine 0.4 L (0.8-1.5) mg/dL Glucose 150 H (75-100) mg/dL POC Glucose 162 H 157 H (70-105) 01/20/18 01/20/18 Range/Units 09:55 12:54 Seg Neuts % (Manual) (40.0-70.0) % Monocytes % (Manual) (0.0-7.3) % Seg Neutrophils # Man (1.8-7.7) K/mm3 Monocytes # (Manual) (0.0-0.8) K/mm3 Chloride (98-107) mmol/L Creatinine (0.8-1.5) mg/dL Glucose (75-100) mg/dL POC Glucose 144 H 176 H (70-105)
[2018-01-20] MEDS: LOVENOX SUB-Q SCH (21:38)
[2018-01-20] MEDS ORDERED: HALDOL IM PRN (23:27)
[2018-01-20] MEDS ORDERED: LIBRIUM PO SCH (23:45)
[2018-01-21] MEDS: DUONEB *Not for PRN Use IH SCH ×3 (08:45→19:26)
--- NOTE | 2018-01-21 11:03 | Progress Note ---
Assessment and Plan Delirium, likely from chronic illness - as needed haldol for now, cont restraint Dysphagia - likely from prolong intubation, failed swallow study initially - s/p MBS study 01/20, speech recommended pureed diet, tolerating well - will d/c dobhoff tube Acute hypoxic respiratory failure, resolved - suspected due to ARDS/aspiration pneumonia: - pulmonary following and required prolong intubation - s/p extubated on 01/15, cont frequent suction, nebs, Suspected ARDS: - possible cuse for prolong intubation - off vent now - CXR showing improvement Sepsis, Etiology most likely complicated H influenza bacteremia +/- pneumonia: - treated with IV antibiotics, - ID signed off, appreciate recommendation Alcohol abuse: cont thiamine, folate, taper librium - last dose tomorrow Hypotension resolved with ivfs and iv steroids Thrombocytopenia, - severe most likely due to sepsis: now stable, cont to monitor Hypernatremia - improved with free water with TF and hypotonic iv fluid hypokalemia, replaced. Stopped Kcl replacement as pt developed hyperkalemia DM type 2- cont long acting and SSI, lentus to 26 unit daily Moderate to Severe protein calorie malnutrition; nutrition supplements, started on oral diet since 01/20, Anemia; s/p 1 Unit PRBC this admission. DVT prophylaxis: scd and lovenox Disposition: Home with family support Brief History: Patient is a 47 yo man with a history of tobacco dependency, alcohol abuse, dm type 2, hypertension and asthma who presented to [facility] ED with SOB and found to be severely hypoxic, failed bipap and was intubated. There is report of n/v during and after intubation. He had prolong intubation likely from ARDS. S/p extubation on on 01/15. Speech recommended purred diet, started 01/25. Physically debilitated, Need RICHIE. Still on restraint, pt has no payer source. Hospitalist Physical GEN: no distress, HEENT: NCAT, pupils react, NG tube in place NECK: supple, CVS/HEART:regular, NORMAL S1S2, pulses present bilaterally CHEST/LUNGS: Symmetrical chest expansion, coarse BS bilaterally GI/Abdomen: soft, distended, good bowel sounds, no guarding or rebound EXT/Skin: no edema MSK: no joint effusion or tenderness Neuro: eyes wide open, follow commend, Psych: cooperative, but tries to climbed out from bed Subjective Date of service: 01/21/18 Principal diagnosis: ARDS,Respiratory failure,pneumonia Interval history: Pt seen and examined extubated 01/15/18, on restraint Speech recommended pureed diet and honey thickened liquid for him cont to monitor at telemetry updated at bedside, need RICHIE Objective - Constitutional Vitals: Vital Signs - 12hr 01/21/18 01/21/18 01/21/18 00:25 04:03 07:44 Temperature 97.7 F 97.9 F Pulse Rate 81 88 89 Pulse Rate [ Anterior Bilateral Throughout] Respiratory 22 20 20 Rate Respiratory Rate [Anterior Bilateral Throughout] Blood Pressure 116/79 117/82 107/74 O2 Sat by Pulse 94 86 96 Oximetry 01/21/18 01/21/18 01/21/18 08:45 08:50 08:53 Temperature Pulse Rate Pulse Rate [ 99 H 95 H Anterior Bilateral Throughout] Respiratory Rate Respiratory 18 18 Rate [Anterior Bilateral Throughout] Blood Pressure O2 Sat by Pulse 96 Oximetry - Labs CBC & Chem 7: 01/19/18 14:45 01/20/18 05:45 Labs: Abnormal lab results 01/20/18 01/20/18 01/20/18 Range/Units 12:54 17:07 21:33 POC Glucose 176 H 124 H 120 H (70-105)
[2018-01-21] MEDS: VITAMIN B-1 PO SCH (12:04)
[2018-01-21] MEDS: PEPCID PO SCH ×2 (12:06→21:56)
[2018-01-21] MEDS: LOPRESSOR PO SCH ×2 (12:06→21:54)
[2018-01-21] MEDS: SODIUM CHLORIDE FLUSH SYRINGE 10 ML IV SCH ×2 (12:07→21:56)
[2018-01-21] MEDS: FOLVITE FEEDTUBE SCH (12:07)
[2018-01-21] MEDS: LIBRIUM PO SCH ×3 (12:07→21:54)
[2018-01-21] MEDS: HumaLOG SUB-Q SCH ×3 (12:09→21:55)
[2018-01-21] MEDS: LANTUS SUB-Q SCH (12:27)
[2018-01-21] MEDS: LOVENOX SUB-Q SCH (21:55)
[2018-01-22 06:11] LABS: Basophils # (Auto) 0.1 K/mm3 (0.0-0.1); Basophils % (Auto) 0.4 % (0.0-1.8); Eosinophils # (Auto) 0.4 K/mm3 (0.0-0.4); Eosinophils % (Auto) 2.7 % (0.0-4.3); Hematocrit 36.3 % (35.5-45.6); Hemoglobin 12.4 gm/dl (11.8-15.2); Lymphocytes # (Auto) 3.1 K/mm3 (1.2-5.4); Lymphocytes % (Auto) 22.2 % (13.4-35.0); Mean Corpuscular HGB Conc 34 % (32-34); Mean Corpuscular Hemoglobin 33 pg (28-32); Mean Corpuscular Volume 98 fl (84-94); Monocytes # (Auto) 1.3 K/mm3 (0.0-0.8); Monocytes % (Auto) 9.3 % (0.0-7.3); Platelet Count 303 K/mm3 (140-440); Red Blood Count 3.72 M/mm3 (3.65-5.03); Red Cell Distribution Width 14.6 % (13.2-15.2)
[2018-01-22 06:30] LABS: BUN/Creatinine Ratio 22; Blood Urea Nitrogen 11 mg/dL (9-20); Calcium 9.5 mg/dL (8.4-10.2); Hemolysis Index 30
[2018-01-22] MEDS: HumaLOG SUB-Q SCH ×2 (07:40→12:59)
[2018-01-22] MEDS: DUONEB *Not for PRN Use IH SCH ×2 (09:38→13:49)
[2018-01-22] MEDS: VITAMIN B-1 PO SCH (10:55)
[2018-01-22] MEDS: PEPCID PO SCH (10:55)
[2018-01-22] MEDS: FOLVITE FEEDTUBE SCH (10:56)
[2018-01-22] MEDS: LANTUS SUB-Q SCH (10:58)
[2018-01-22] MEDS: LOPRESSOR PO SCH (10:58)
[2018-01-22] MEDS: SODIUM CHLORIDE FLUSH SYRINGE 10 ML IV SCH (10:59)
--- NOTE | 2018-01-22 11:05 | Discharge Summary ---
Providers - Providers Date of Admission: 12/12/17 22:16 Date of discharge: 01/22/18 Attending physician: AUSTIN LEÓN MD 12/13/17 04:35 Consult to Dietitian/Nutrition [CONS] Routine Physician Instructions: Reason For Exam: Reason for Consult: Evaluate nutritional intake 12/15/17 13:10 Consult to Dietitian/Nutrition [CONS] Routine Physician Instructions: Reason For Exam: Reason for Consult: Write/Manage Tube Feeding 12/17/17 08:31 Consult to Dietitian/Nutrition [CONS] Routine Physician Instructions: Assess nutrtn needs, initiate, modify, manage TF Reason For Exam: Reason for Consult: Write/Manage Tube Feeding Reason for Consult: Write/Manage Tube Feeding 12/18/17 08:23 Consult to PICC Line RN [CONS] Urgent Reason For Exam: multiple drips Type Line:: PICC 12/19/17 13:57 Consult to Physician [CONS] Routine Comment: Consulting Provider: PIERCE VILLALPANDO Physician Instructions: Reason For Exam: persistant fever 01/06/18 11:49 Consult to Physician [CONS] Routine Comment: Consulting Provider: ARAM PETE Physician Instructions: Reason For Exam: Trach and PEG placement 01/16/18 14:34 Speech Therapy Evaluation and Treat [CONS] Routine Reason For Exam: aspiration 01/16/18 17:33 Occupational Therapy Evaluate and Treat [CONS] Routine Comment: Reason For Exam: Deconditioning Physical Therapy Evaluation and Treat [CONS] Routine Comment: Reason For Exam: Deconditioning Primary care physician: AVTAR KWAN Hospitalization Reason for admission: Acute respiratory failure, Condition: Stable Pertinent studies: Chest x-ray on admission bilateral infiltrates CT chest pneumonia versus edema Echo ejection fraction of 40-45%, impaired relaxation CT abdomen and pelvis , normal finding Doppler ultrasound of the lower extremities negative for DVT Hospital course: Patient is a 47 yo man with a history of tobacco dependency, alcohol abuse, dm type 2, hypertension and asthma who presented to [facility] ED with SOB and found to be severely hypoxic, failed bipap and was intubated. There is report of n/v during and after intubation. He had prolong intubation likely from ARDS. S/p extubation on on 01/15. Currently patient is saturating well on room air, not in respiratory distress, patient is off restraints, alert and oriented 3. I have long discussion with the patient and his was in agreement with the discharge to home. PT evaluated and recommended SNF but patient did not have insurance, patient's and the patient declined the option of SNF rather wanted to be discharged with home health/PT. Dysphagia - likely from prolong intubation - Patient is currently tolerating regular diet Acute hypoxic respiratory failure, resolved - suspected due to ARDS/aspiration pneumonia: s/p extubated on 01/15 - Saturating well on room air - Patient said he has when necessary albuterol and doesn't need treatment Suspected ARDS: - CXR showing improvement Sepsis, Etiology most likely complicated H influenza bacteremia +/- pneumonia: - Patient was treated with antibiotics and sepsis resolved Alcohol abuse: Patient and said he was not drinking regularly and drinks socially. His discontinue librium. DM type 2- Patient said he has metformin at home and will continue to take it. Blood sugar this morning was 80. Moderate to Severe protein calorie malnutrition. Anemia; s/p 1 Unit PRBC this admission. Currently hemoglobin is 12.4. Disposition: DC/TX- HOME UNDER [facility] Time spent for discharge: 31 minutes - Discharge Diagnoses (1) Acute respiratory distress syndrome (ARDS) Status: Acute (2) Acute respiratory failure Status: Acute (3) Sepsis Status: Acute Core Measure Documentation - Palliative Care Palliative Care/ Comfort Measures: Not Applicable - Core Measures Any of the following diagnoses?: none Exam - Physical Exam Narrative exam: Not in cardiopulmonary distress. The patient appeared well nourished and normally developed. Vital signs as documented. Head exam is unremarkable. No scleral icterus . Neck is without jugular venous distension, thyromegaly, or carotid bruits. Lungs are clear to auscultation. Cardiac exam reveals regular rate and Rhythm. First and second heart sounds normal. No murmurs, rubs or gallops. Abdominal exam reveals normal bowel sounds, no masses, no organomegaly and no aortic enlargement. Extremities are nonedematous and both femoral and pedal pulses are normal. FILAMENT TESTER: Alert and oriented 3. No focal weakness. - Constitutional Vitals: Temp Pulse Resp BP Pulse Ox 97.9 F 102 H 20 103/66 92 01/22/18 04:50 01/22/18 09:50 01/22/18 09:50 01/22/18 08:03 01/22/18 09:44 Plan Activity: advance as tolerated Weight Bearing Status: Weight Bear as Tolerated Diet: diabetic Special Instructions: physical therapy Follow up with: AVTAR KWAN MD [Primary Care Provider] - 7 Days
[2018-01-22 13:17] VITALS: BP 111/80
[2018-01-22] MEDS ORDERED: TRIPLE ANTIBIOTIC TP NR (13:30)
[2018-01-22] MEDS ORDERED: ANTIBIOTIC OINT TP SCH (14:00)
== END 2018-01-22 14:30 | disposition home health service (06) | DRG 870 ==
LOC: ED 17:17 → 3A 22:16 → 4A 23:42 → CC1 12-13 04:31 → 4A 01-16 21:29
PROVIDERS: ADMIT Internal Medicine; ATTEND Internal Medicine
PROC: 5A1955Z Respiratory Ventilation, Greater than 96 Consecutive Hours (ICD-10-PCS; principal; 2017-12-12)
PROC: 5A09357 Assistance with Respiratory Ventilation, Less than 24 Consecutive Hours, Continuous Positive Airway Pressure (ICD-10-PCS; 2017-12-12)
PROC: 4A033R1 Measurement of Arterial Saturation, Peripheral, Percutaneous Approach (ICD-10-PCS; 2017-12-13)
PROC: 5A09357 Assistance with Respiratory Ventilation, Less than 24 Consecutive Hours, Continuous Positive Airway Pressure (ICD-10-PCS; 2017-12-27)
PROC: 30233N1 Transfusion of Nonautologous Red Blood Cells into Peripheral Vein, Percutaneous Approach (ICD-10-PCS; 2017-12-31)
PROC: 0BH17EZ Insertion of Endotracheal Airway into Trachea, Via Natural or Artificial Opening (ICD-10-PCS; 2018-01-12)
DX: A41.9 Sepsis, unspecified organism (principal); J69.0 Pneumonitis due to inhalation of food and vomit; J96.01 Acute respiratory failure with hypoxia; E43 Unspecified severe protein-calorie malnutrition; J96.02 Acute respiratory failure with hypercapnia; E87.1 Hypo-osmolality and hyponatremia; J45.901 Unspecified asthma with (acute) exacerbation; Z99.11 Dependence on respirator [ventilator] status; D69.6 Thrombocytopenia, unspecified; F17.210 Nicotine dependence, cigarettes, uncomplicated; E11.65 Type 2 diabetes mellitus with hyperglycemia; K70.10 Alcoholic hepatitis without ascites; R65.20 Severe sepsis without septic shock; F10.10 Alcohol abuse, uncomplicated; I10 Essential (primary) hypertension; E87.6 Hypokalemia; Z68.29 Body mass index [BMI] 29.0-29.9, adult; D64.9 Anemia, unspecified; R13.10 Dysphagia, unspecified
CPT/HCPCS: 31720; 36415; 36600; 71045; 71260; 74018; 74177; 76700; 80048; 80053; 80074; 80202; 81001; 82140; 82150; 82270; 82803; 82805; 82962; 83690; 83735; 83880; 84100; 84132; 84478; 85007; 85025; 85027; 85610; 85730; 86021; 86038; 86140; 86160; 86850; 86900; 86901; 86920; 87040; 87070; 87086; 87205; 87400; 87449; 87806; 93005; 93010; 93306; 93970; 94002; 94003; 94640; 94660; 94760; 96361; 96365; 96366; 96375; A6250; G8996-GN; G8997-GN; J0360; J0692; J1170; J1630; J1644; J1650; J1815; J1940; J1956; J2020; J2060; J2250; J2270; J2405; J2543; J2704; J2765; J2920; J2930; J2997; J3010; J3370; J3411; J3475; J3480; J7030; J7040; J7050; P9016; Q9967

== ENCOUNTER 2018-10-06 12:38 | Outpatient (CLI) | payer OTHER | END 2018-10-06 12:39 | disposition home or self-care (01) | LOC: PF 12:38 | PROVIDERS: ATTEND Internal Medicine | DX: H54.7 Unspecified visual loss (principal); E11.9 Type 2 diabetes mellitus without complications; J45.909 Unspecified asthma, uncomplicated | CPT/HCPCS: 94010; 94729 ==

== ENCOUNTER 2019-03-24 07:32 | Emergency (ER) | payer OTHER ==
[2019-03-24 10:59] LABS: Bacteria,Urine 1+ /HPF (Negative); Bilirubin,Urine NEG (Negative); Blood,Urine NEG (Negative); Color,Urine Amber (Yellow); Granular Casts,Urine 4 /LPF; Mucus,Urine FEW /HPF; Urobilinogen,Urine < 2.0 mg/dL (<2.0)
--- NOTE | 2019-03-24 11:12 | Emergency Department Report ---
ED General Adult HPI - General Chief complaint: Hyperglycemia Stated complaint: BLOOD SUGAR HIGH Time Seen by Provider: 03/24/19 10:23 Source: patient Mode of arrival: Ambulatory Limitations: No Limitations - History of Present Illness Initial comments: This is a 48-year-old male with a past medical history of diabetes who is not taking any medication presents to ED with diarrhea and elevated blood glucose. The patient states that he has not been on medication for about a year now as he was taking half his metformin by his primary care physician at the time because his blood glucose was wall managed and under control. Patient states the past couple of days but this has been elevated. He denies chest pain, shortness of breath, abdominal pain, headache, - Related Data Previous Rx's Medication Instructions Recorded Last Taken Type metFORMIN [Glucophage] 500 mg PO BID #30 tablet 03/24/19 Unknown Rx Allergies Allergy/AdvReac Type Severity Reaction Status Date / Time Qxzrgxx-Xhe-Wvw Reductase Allergy Unknown Verified 12/12/17 20:09 Inhibitor ED Review of Systems ROS: Stated complaint: BLOOD SUGAR HIGH Other details as noted in HPI Comment: All other systems reviewed and negative ED Past Medical Hx - Past Medical History Previous Medical History?: Yes Hx Diabetes: Yes Hx Deep Vein Thrombosis: No Hx Asthma: Yes Additional medical history: asthma - Surgical History Past Surgical History?: No Hx Pacemaker: No Hx Internal Defibrillator: No - Social History Smoking Status: Current Every Day Smoker Substance Use Type: None - Medications Home Medications: Home Medications Medication Instructions Recorded Confirmed Last Taken Type metFORMIN [Glucophage] 500 mg PO BID #30 tablet 03/24/19 Unknown Rx ED Physical Exam - General Limitations: No Limitations General appearance: alert, in no apparent distress - Head Head exam: Present: atraumatic, normocephalic - Eye Eye exam: Present: normal appearance - ENT ENT exam: Present: mucous membranes moist - Neck Neck exam: Present: normal inspection - Respiratory Respiratory exam: Present: normal lung sounds bilaterally. Absent: respiratory distress - Cardiovascular Cardiovascular Exam: Present: regular rate, normal rhythm. Absent: systolic murmur, diastolic murmur, rubs, gallop - GI/Abdominal GI/Abdominal exam: Present: soft, normal bowel sounds - Rectal Rectal exam: Present: deferred - Extremities Exam Extremities exam: Present: normal inspection - Back Exam Back exam: Present: normal inspection - Neurological Exam Neurological exam: Present: alert, oriented X3 - Psychiatric Psychiatric exam: Present: normal affect, normal mood - Skin Skin exam: Present: warm, dry, intact, normal color. Absent: rash ED Course Vital Signs 03/24/19 03/24/19 07:54 13:08 Temperature 98.8 F Pulse Rate 95 H 82 Respiratory 18 20 Rate Blood Pressure 119/86 122/83 [Right] O2 Sat by Pulse 94 98 Oximetry ED Medical Decision Making - Lab Data Result diagrams: 03/24/19 10:50 03/24/19 10:50 Laboratory Last Values WBC 12.5 K/mm3 (4.5-11.0) H 03/24/19 10:50 RBC 4.49 M/mm3 (3.65-5.03) 03/24/19 10:50 Hgb 15.3 gm/dl (11.8-15.2) H 03/24/19 10:50 Hct 44.0 % (35.5-45.6) 03/24/19 10:50 MCV 101 fl (84-94) H 03/24/19 10:50 MCH 35 pg (28-32) H 03/24/19 10:50 MCHC 35 % (32-34) H 03/24/19 10:50 RDW 12.8 % (13.2-15.2) L 03/24/19 10:50 Plt Count 202 K/mm3 (140-440) 03/24/19 10:50 Lymph % (Auto) Not Reportable 03/24/19 10:50 [place] % (Auto) Not Reportable 03/24/19 10:50 Eos % (Auto) Not Reportable 03/24/19 10:50 Baso % (Auto) Not Reportable 03/24/19 10:50 Lymph # Not Reportable 03/24/19 10:50 [place] # Not Reportable 03/24/19 10:50 Eos # Not Reportable 03/24/19 10:50 Baso # Not Reportable 03/24/19 10:50 Add Manual Diff Complete 03/24/19 10:50 Total Counted 100 03/24/19 10:50 Seg Neuts % (Manual) 81.0 % (40.0-70.0) H 03/24/19 10:50 0 % 03/24/19 10:50 15.0 % (13.4-35.0) 03/24/19 10:50 Reactive Lymphs % (Man) 0 % 03/24/19 10:50 1.0 % (0.0-7.3) 03/24/19 10:50 3.0 % (0.0-4.3) 03/24/19 10:50 0 % (0.0-1.8) 03/24/19 10:50 0 % 03/24/19 10:50 0 % 03/24/19 10:50 0 % 03/24/19 10:50 0 % 03/24/19 10:50 Nucleated RBC % Not Reportable 03/24/19 10:50 Seg Neutrophils # Not Reportable 03/24/19 10:50 Seg Neutrophils # Man 10.1 K/mm3 (1.8-7.7) H 03/24/19 10:50 Band Neutrophils # 0.0 K/mm3 03/24/19 10:50 1.9 K/mm3 (1.2-5.4) 03/24/19 10:50 Abs React Lymphs (Man) 0.0 K/mm3 03/24/19 10:50 0.1 K/mm3 (0.0-0.8) 03/24/19 10:50 0.4 K/mm3 (0.0-0.4) 03/24/19 10:50 0.0 K/mm3 (0.0-0.1) 03/24/19 10:50 0.0 K/mm3 03/24/19 10:50 0.0 K/mm3 03/24/19 10:50 0.0 K/mm3 03/24/19 10:50 Blast Cells # 0.0 K/mm3 03/24/19 10:50 WBC Morphology Not Reportable 03/24/19 10:50 Hypersegmented Neuts Not Reportable 03/24/19 10:50 Hyposegmented Neuts Not Reportable 03/24/19 10:50 Hypogranular Neuts Not Reportable 03/24/19 10:50 Few 03/24/19 10:50 Not Reportable 03/24/19 10:50 Not Reportable 03/24/19 10:50 Not Reportable 03/24/19 10:50 Not Reportable 03/24/19 10:50 Not Reportable 03/24/19 10:50 Consistent w auto 03/24/19 10:50 Not Reportable 03/24/19 10:50 Plt Clumps, EDTA Not Reportable 03/24/19 10:50 Not Reportable 03/24/19 10:50 Not Reportable 03/24/19 10:50 Not Reportable 03/24/19 10:50 Plt Morphology Comment Not Reportable 03/24/19 10:50 RBC Morphology Not Reportable 03/24/19 10:50 Dimorphic RBCs Not Reportable 03/24/19 10:50 Not Reportable 03/24/19 10:50 Not Reportable 03/24/19 10:50 Not Reportable 03/24/19 10:50 1+ 03/24/19 10:50 Not Reportable 03/24/19 10:50 Not Reportable 03/24/19 10:50 Few 03/24/19 10:50 Not Reportable 03/24/19 10:50 Not Reportable 03/24/19 10:50 Not Reportable 03/24/19 10:50 Not Reportable 03/24/19 10:50 Not Reportable 03/24/19 10:50 Not Reportable 03/24/19 10:50 Not Reportable 03/24/19 10:50 Not Reportable 03/24/19 10:50 Not Reportable 03/24/19 10:50 Not Reportable 03/24/19 10:50 Not Reportable 03/24/19 10:50 Not Reportable 03/24/19 10:50 Acanthocytes (Spur) Not Reportable 03/24/19 10:50 Rouleaux Not Reportable 03/24/19 10:50 Not Reportable 03/24/19 10:50 Not Reportable 03/24/19 10:50 Not Reportable 03/24/19 10:50 Not Reportable 03/24/19 10:50 Hem Pathologist Commnt No 03/24/19 10:50 Sodium TNR 03/24/19 10:50 Potassium 4.1 mmol/L (3.6-5.0) 03/24/19 10:50 Chloride 85.0 mmol/L (98-107) L 03/24/19 10:50 Carbon Dioxide 24 mmol/L (22-30) 03/24/19 10:50 TNR 03/24/19 10:50 BUN 14 mg/dL (9-20) 03/24/19 10:50 < 0.2 mg/dL (0.8-1.5) L 03/24/19 10:50 Estimated GFR > 60 ml/min 03/24/19 10:50 70 % 03/24/19 10:50 Glucose TNR 03/24/19 10:50 POC Glucose 252 (70-105) H 03/24/19 08:00 Calcium TNR 03/24/19 10:50 TNR 03/24/19 10:50 AST 170 units/L (5-40) H 03/24/19 10:50 ALT 64 units/L (7-56) H 03/24/19 10:50 229 units/L (35-129) H 03/24/19 10:50 4.6 g/dL (6.3-8.2) L 03/24/19 10:50 TNR 03/24/19 10:50 TNR 03/24/19 10:50 Neeta (Yellow) 03/24/19 10:39 Slightly-cloudy (Clear) 03/24/19 10:39 5.0 (5.0-7.0) 03/24/19 10:39 Ur Specific [place] 1.029 (1.003-1.030) 03/24/19 10:39 30 mg/dl mg/dL (Negative) 03/24/19 10:39 50 mg/dL (Negative) 03/24/19 10:39 Neg mg/dL (Negative) 03/24/19 10:39 Neg (Negative) 03/24/19 10:39 Neg (Negative) 03/24/19 10:39 Neg (Negative) 03/24/19 10:39 < 2.0 mg/dL (<2.0) 03/24/19 10:39 Ur Leukocyte Esterase Neg (Negative) 03/24/19 10:39 2.0 /HPF (0.0-6.0) 03/24/19 10:39 1.0 /HPF (0.0-6.0) 03/24/19 10:39 1+ /HPF (Negative) 03/24/19 10:39 Granular Casts 4 /LPF 03/24/19 10:39 Few /HPF 03/24/19 10:39 - Medical Decision Making 48-year-old male presents with hyperglycemia. CBC, CMP, urinalysis all completed. Patient left the ED prior to CMP results. Patient states he would like to be called with results which at that time he can then come back because he is not able to wait anymore because he's been here 5-6 hours. Patient was advised to wait for lab results. Patient states he had to leave to go tow picker his children. Discussed patient to follow-up or return to ED. CBC shows a mild elevated white blood count, urinalysis The patient will follow-up her primary care physician and will need a product tester referral from the primary care doctor. Patient is in no acute distress. Patient some metformin in the ED to reduce blood sugar. Vital signs are normal patient is in no acute distress. Critical care attestation.: If time is entered above; I have spent that time in minutes in the direct care of this critically ill patient, excluding procedure time. ED Disposition Clinical Impression: Elevated blood sugar, Uncontrolled diabetes mellitus Disposition: - TO HOME OR SELFCARE Is pt being admited?: No Does the pt Need Aspirin: No Condition: Stable Instructions: Diabetes Mellitus Type 2 in Adults (ED) Additional Instructions: Make sure to follow up with the primary care physician as discussed. Take all your medications as you've been prescribed. If you have any worsening symptoms or develop new symptoms please return to ED immediately. Prescriptions: metFORMIN [Glucophage] 500 mg PO BID #30 tablet Referrals: KARTHIK GALINDO MD [Primary Care Provider] - 3-5 Days [facility] [Provider Group] - 3-5 Days [facility], [Provider Group] - 3-5 Days [facility] [Provider Group] - 3-5 Days Forms: Accompanied Note, Work/School Release Form(ED) Time of Disposition: 12:39
[2019-03-24] MEDS ORDERED: GLUCOPHAGE PO ONE (12:00)
[2019-03-24 12:09] LABS: Red Blood Count 4.49 M/mm3 (3.65-5.03)
[2019-03-24 12:10] LABS: Hemoglobin 15.3 gm/dl (11.8-15.2); Mean Corpuscular Volume 101 fl (84-94)
[2019-03-24 12:12] LABS: Mean Corpuscular HGB Conc 35 % (32-34); Platelet Count 202 K/mm3 (140-440); Red Cell Distribution Width 12.8 % (13.2-15.2)
[2019-03-24 13:09] VITALS: BP 122/83
[2019-03-24 13:33] LABS: Hemolysis Index 102
[2019-03-24 13:44] LABS: Alanine Aminotransferase 64 units/L (7-56); BUN/Creatinine Ratio 70; Blood Urea Nitrogen 14 mg/dL (9-20)
[2019-03-24 14:06] LABS: Albumin TNR g/dL (3.9-5); Calcium TNR mg/dL (8.4-10.2)
[2019-03-24 14:08] LABS: Basophils % (Manual) 0 % (0.0-1.8); Total Cells Counted 100
[2019-03-24 14:09] LABS: Anisocytosis 1+; Smudge Cells Few; Spherocytes Few
[2019-03-24 14:10] LABS: Platelet Estimate Consistent w Auto
== END 2019-03-24 13:08 | disposition home or self-care (01) ==
LOC: ED 07:32
DX: E11.65 Type 2 diabetes mellitus with hyperglycemia (principal); J45.909 Unspecified asthma, uncomplicated; F17.200 Nicotine dependence, unspecified, uncomplicated
CPT/HCPCS: 36415; 80053; 81001; 82962; 85007; 85025; 99283

== ENCOUNTER 2022-04-19 10:13 | Outpatient (CLI) | payer OTHER ==
--- NOTE | 2022-04-19 13:36 | Cat Scan Report ---
CT ABDOMEN AND PELVIS WITHOUT CONTRAST HISTORY: K42.9 UMBILICAL HERNIA W/O OBSTRUCTION OR GANGRENE COMPARISON: None TECHNIQUE: Routine abdominal and pelvic CT exam performed . All CT scans at this location are perform ed using CT dose reduction for ALARA by means of automated exposure control. FINDINGS: CT ABDOMEN: Lung Bases: No significant abnormality. Liver: Liver appears enlarged without focal parenchymal abnormality. Biliary: No significant abnormality. Spleen: No significant abnormality. Unenlarged. Pancreas: No significant abnormality. Adrenals: No significant abnormality. Kidneys: No significant abnormality. Lymphatics: No lymphadenopathy. Vasculature: Atherosclerotic but nonaneurysmal abdominal aorta. Bowel/Peritoneum: No acute findings. Fat-containing umbilical hernia with hernia defect measuring abo ut [address] PELVIC: : No significant abnormality. Lymphatics: No lymphadenopathy. Osseous Structures: No aggressive appearing osseous lesions. Additional Findings: None IMPRESSION: 1. Fat-containing ventral hernia. 2. No acute findings. 3. Mild hepatomegaly. Signer Name: Philip Avilez MD Signed: 04/19/2022 1:31 PM Workstation Name: [email or web address]
== END 2022-04-19 10:14 | disposition home or self-care (01) ==
LOC: CT 10:13
PROVIDERS: ATTEND Surgery
DX: R16.0 Hepatomegaly, not elsewhere classified (principal); K43.9 Ventral hernia without obstruction or gangrene; I70.0 Atherosclerosis of aorta; K42.9 Umbilical hernia without obstruction or gangrene
CPT/HCPCS: 74176